=== PATIENT | male | born 1965 | race African-American/Black ===

== ENCOUNTER 2023-01-02 13:10 | Emergency (ER) | payer OTHER, MEDICARE, MEDICAID, SELFPAY ==
[2023-01-02] VITALS (11 sets, daily range): BP systolic 110; BP diastolic 84; PULSE 101–129; RESP 17–44; TEMP 36.4; O2SAT 94–99; BMI 19.0
--- NOTE | 2023-01-02 13:30 | ECG_ITS ---
[facility] Test Date: 2023-01-02 Pat Name: TONI GERBER Department: Room: - Gender: Male Flag Maker: : 1965 Requested By: [id number] Order Number: [id number] Reading MD: FRANCISCO JAVIER KRUSE Measurements Intervals [place] Rate: 122 P: 251 NE: 206 QRS: 65 QRSD: 90 T: 83 QT: 312 QTc: 384 Interpretive Statements Sinus tachycardia 9140 abnormal rhythm ECG No previous ECG available for comparison Electronically Signed On 01-03-2023 7:12:50 EDT by FRANCISCO JAVIER KRUSE
--- NOTE | 2023-01-02 13:56 | CT_ITS ---
[address] [address] Patient Name: TONI GERBER MRN: [id number] date: 1965 Sex: M Assigned Patient Location: ER Current Patient Location: ER Accession/Order Number: [id number] Exam Date: 01/02/2023 13:50 Report Date: 01/02/2023 14:34 At the request of: CARLOS BOLAÑOS Procedure: CT chest wo con EXAMINATION: CT chest wo con HISTORY: fall , posterior right rib pain COMPARISON: CT chest 08/27/2022 TECHNIQUE: Multi-planar CT images were obtained without and/or with IV contrast as indicated by examination type. Axial, Coronal, and Sagittal images. Dose reduction techniques were achieved by using automated exposure control and/or adjustment of mA and/or kV according to patient size and/or use of iterative reconstruction technique. FINDINGS: LUNGS: Moderate emphysematous changes throughout the lungs. Thick curvilinear stranding opacities within right middle lobe and posterior right lung base. PLEURA: Trace amount of right pleural fluid. No pneumothorax. VASCULATURE: No abnormality. VERONIKA: No mass or adenopathy. MEDIASTINUM: No mass or adenopathy. CARDIAC: No enlargement, pericardial thickening, or significant calcification. AORTA: No aneurysm or dissection. CHEST WALL: No mass or axillary adenopathy. BONES: Slight anterior wedging of T6 and T7 vertebral bodies; unchanged. LIMITED ABDOMEN: No suspicious findings Limited images of the upper abdomen. OTHER: Negative. CT/CT chest wo con IMPRESSION: 1. No rib fracture or appreciable acute bone abnormality. 2. Stable, slight anterior wedging of T6 and T7 vertebral bodies; developmental versus sequela of remote compression fractures. 3. Trace amount of right pleural fluid and mild stranding within lung bases favoring discoid atelectasis which are likely secondary to patient's discomfort and decreased lung expansion. No convincing infiltrates. Electronically authenticated by: JESSE RAMOS Date: 01/02/2023 14:34
--- NOTE | 2023-01-02 14:02 | ED.FALL1 ---
HPI - Fall General Chief Complaint: Extremity Injury, Upper Stated Complaint: FALL, UPPER EXTREMITY INJURY Time Seen by Provider: 01/02/23 13:21 Source: patient Mode of arrival: walk-in Limitations: no limitations History of Present Illness HPI Narrative: 57-year-old male past medical history hypertension presents for neck since a fall last night after he tripped over a rolled up rug. He states that he hit the right side of his rib cage on a bookshelf and is in pain. Hurts worse with movement. Denies fever, abd or back pain, n/v/d, SOB or CP Related Data Home Medications Medication Instructions Recorded Confirmed amlodipine 5 mg tablet 5 mg PO QDAY 01/02/23 01/02/23 aspirin 81 mg tablet,delayed 81 mg PO QDAY 01/02/23 01/02/23 release bupropion HCl 100 mg tablet 100 mg PO QDAY 01/02/23 01/02/23 folic acid 1 mg tablet 1 mg PO QDAY 01/02/23 01/02/23 hydroxyzine pamoate 25 mg capsule 25 mg PO QDAY 01/02/23 01/02/23 quetiapine 100 mg tablet 100 mg PO QDAY 01/02/23 01/02/23 Previous Rx's Medication Instructions Recorded hydrocodone 5 mg-acetaminophen 325 1 tab PO Q4H PRN pain 3 days #12 01/02/23 mg tablet tabs Allergies Allergy/AdvReac Type Severity Reaction Status Date / Time No Known Drug Allergies Allergy Verified 01/02/23 13:15 Review of Systems ROS Status of ROS 10 or more systems reviewed and unremarkable except as noted in history and below [facility] Medical History (Updated 01/02/23 @ 14:49 by ANASTASIA Parra) Social History Smoking status: Former smoker Exam Narrative Exam Narrative: General: A&Ox3, no distress, talking in full an complete sentences skin: warm, dry, intact head: normocephalic, atraumatic eyes: EOMI nose: nares patent neck: supple, trachea midline cardiac: +S1/S1. no murmur respiratory: lungs CTA, non-labored, no wheezing, no retractions chest wall: abrasion to R lateral 6th rib area, no crepitus abdomen: soft, NT extremities: FROM x 4, strength +5/5 neuro: A&Ox3 psych: appropriate mood and affect, cooperative Constitutional Vital Signs, click to edit/add: Last Vital Signs Temp 97.6 F 01/02/23 13:15 Pulse 129 H 01/02/23 13:15 Resp 18 01/02/23 13:15 BP 110/84 01/02/23 13:15 Pulse Ox 99 01/02/23 13:15 O2 Del Method Room Air 01/02/23 13:15 Course Vital Signs Vital signs: Vital Signs Temperature 97.6 F 01/02/23 13:15 Pulse Rate 129 H 01/02/23 13:15 Respiratory Rate 18 01/02/23 13:15 Blood Pressure 110/84 01/02/23 13:15 Pulse Oximetry 99 01/02/23 13:15 Oxygen Delivery Method Room Air 01/02/23 13:15 Temperature 97.6 F 01/02/23 13:15 Pulse Rate 129 H 01/02/23 13:15 Respiratory Rate 18 01/02/23 13:15 Blood Pressure 110/84 01/02/23 13:15 Pulse Oximetry 99 01/02/23 13:15 Oxygen Delivery Method Room Air 01/02/23 13:15 MDM - Fall MDM Narrative Medical decision making narrative: EKG shows a sinus tachycardia at a rate of 122. Patient medicated with morphine. Upon recheck, patient did get relief with the morphine. Pulse on the cardiac cath tech shows 103. There is a trace amount of fluid to the RLL, otherwise no acute findings on final read of chest CT without contrast. He is given a prescription of [place] and to follow-up with family doctor. He states that he has an appointment tomorrow with his family doctor. OARRS reviewed. afebrile, not tachypneic, not tachycardic, not hypoxic, non toxic appearing and ambulating at baseline and hemodynamically stable to be d/c. answered all questions. educated on SE of meds. pt in agreement with tx. educated when to return to ER. Lab Data Attestation: I reviewed the patient's lab results. Labs: Lab Results 01/02/23 Range/Units 13:40 WBC 7.5 (4.0-11.0) 10^3/uL RBC 4.50 L (4.70-6.10) 10^6/uL Hgb 14.4 (14.0-18.0) g/dL Hct 40.0 L (42.0-54.0) % MCV 88.9 (80.0-94.0) fL MCH 32.0 (25.9-34.0) pg MCHC 36.0 H (29.9-35.2) g/dL RDW 15.4 H (11.0-15.0) % Plt Count 162 (150-450) 10^3/uL MPV 9.0 L (9.5-13.5) fL Neut % (Auto) 71.6 (43.0-75.0) % Lymph % (Auto) 16.7 L (20.5-60.0) % [place] % (Auto) 8.5 (1.7-12.0) % Eos % (Auto) 2.1 (0.9-7.0) % Baso % (Auto) 0.8 (0.2-2.0) % Neut # (Auto) 5.4 (1.4-6.5) 10^3/uL Lymph # (Auto) 1.3 (1.2-3.8) 10^3/uL [place] # (Auto) 0.6 (0.3-0.8) 10^3/uL Eos # (Auto) 0.2 (0.0-0.7) 10^3/uL Baso # (Auto) 0.1 (0.0-0.1) 10^3/uL Abs Immat Gran (auto) 0.02 (0.00-0.03) 10^3/uL Imm/Tot Granulo (auto) 0.3 (0.0-0.5) % PT 10.0 (9.0-11.6) sec INR 0.94 Sodium 130 L (136-145) mmol/L Potassium 4.5 (3.5-5.1) mmol/L Chloride 97 L (98-107) mmol/L Carbon Dioxide 24.0 (21.0-32.0) mmol/L Anion Gap 13.5 BUN 7.0 (7.0-18.0) mg/dL Creatinine 0.91 (0.70-1.30) mg/dL Est GFR ( Amer) >60 (>=60) Est GFR (Non-Af Amer) >60 (>=60) BUN/Creatinine Ratio 7.7 Glucose 110 H (74-106) mg/dL Calcium 8.4 L (8.5-10.1) mg/dL Magnesium 1.9 (1.8-2.4) mg/dL Total Bilirubin 0.7 (0.2-1.0) mg/dL AST 31 (15-37) U/L ALT 29 (16-63) U/L Alkaline Phosphatase 139 H (46-116) U/L Troponin I High Sens 9.0 (4.0-76.1) pg/mL NT-Pro-B Natriuret Pep 99.0 (<=900.0) pg/mL Total Protein 7.3 (6.4-8.2) g/dL Albumin 3.5 (3.4-5.0) g/dL Globulin 3.8 g/dL Albumin/Globulin Ratio 0.9 Discharge Plan Discharge Chief Complaint: Extremity Injury, Upper Clinical Impression: Contusion of rib on right side Qualifiers: Encounter type: initial encounter Qualified Code(s): S20.211A - Contusion of right front wall of thorax, initial encounter Accidental fall Qualifiers: Encounter type: initial encounter Qualified Code(s): W19.XXXA - Unspecified fall, initial encounter Patient Disposition: Home, Self-Care Time of Disposition Decision: 14:49 Condition: Good Mode of Transportation: Private Vehicle Prescriptions / Home Meds: New hydrocodone-acetaminophen 5-325 mg tablet 1 tab PO Q4H PRN (Reason: pain) 3 Days Qty: 12 0RF No Action amlodipine 5 mg tablet 5 mg PO QDAY aspirin 81 mg tablet,delayed release (DR/EC) 81 mg PO QDAY bupropion HCl 100 mg tablet 100 mg PO QDAY folic acid 1 mg tablet 1 mg PO QDAY hydroxyzine pamoate 25 mg capsule 25 mg PO QDAY quetiapine 100 mg tablet 100 mg PO QDAY Instructions: Rib Contusion (ED) Stand Alone Forms: Portal Instructions Referrals: DANNA QURESHI [Primary Care Provider] - As soon as possible
[2023-01-02 14:04] LABS: Basophils Absolute Auto 0.1 10^3/uL (0.0-0.1); Basophils Percent Auto 0.8 % (0.2-2.0); Eosinophils Absolute Auto 0.2 10^3/uL (0.0-0.7); Eosinophils Percent Auto 2.1 % (0.9-7.0); Hemoglobin 14.4 g/dL (14.0-18.0); Immature Granulocytes Abs Auto 0.02 10^3/uL (0.00-0.03); Immature Granulocytes Pct Auto 0.3 % (0.0-0.5); Lymphocytes Absolute Auto 1.3 10^3/uL (1.2-3.8); Lymphocytes Percent Auto 16.7 % (20.5-60.0); Mean Corpuscular Volume 88.9 fL (80.0-94.0); Monocytes Absolute Auto 0.6 10^3/uL (0.3-0.8); Monocytes Percent Auto 8.5 % (1.7-12.0); Neutrophils Absolute Auto 5.4 10^3/uL (1.4-6.5); Neutrophils Percent Auto 71.6 % (43.0-75.0); Platelet Count 162 10^3/uL (150-450); Red Cell Distribution Width 15.4 % (11.0-15.0); White Blood Count 7.5 10^3/uL (4.0-11.0)
[2023-01-02 14:14] LABS: Anion Gap 13.5; INR 0.94
[2023-01-02 14:16] LABS: Alanine Aminotransferase 29 U/L (16-63); Albumin Globulin Ratio 0.9; Albumin Level 3.5 g/dL (3.4-5.0); Alkaline Phosphatase 139 U/L (46-116); Aspartate Amino Transferase 31 U/L (15-37); BUN Creatinine Ratio 7.7; Bilirubin Total 0.7 mg/dL (0.2-1.0); Calcium 8.4 mg/dL (8.5-10.1); Chloride 97 mmol/L (98-107); Estimated GFR (African America >60 (>=60); Estimated GFR (Non-African Ame >60 (>=60); Globulin 3.8 g/dL; Glucose 110 mg/dL (74-106); Magnesium 1.9 mg/dL (1.8-2.4); Potassium 4.5 mmol/L (3.5-5.1); Sodium 130 mmol/L (136-145); Total Protein 7.3 g/dL (6.4-8.2)
[2023-01-02] MEDS: MORPHINE SULFATE 4 MG/ML VIAL IV (14:19)
== END 2023-01-02 16:21 | disposition home or self-care (01) ==
PROVIDERS: Physician Assistant; Emergency Provider Student in an Organized Health Care Education/Training Program; PCP Family Medicine
DX: S20.211A Contusion of right front wall of thorax, initial encounter (principal); Z79.899 Other long term (current) drug therapy; Z79.82 Long term (current) use of aspirin; Z87.891 Personal history of nicotine dependence; W18.09XA Striking against other object with subsequent fall, initial encounter
CPT/HCPCS: 36415; 71250; 80053; 83735; 83880; 84484; 85025; 85610; 93005; 96374; 99285

== ENCOUNTER 2023-07-09 13:20 | Emergency (ER) | payer OTHER, MEDICARE, MEDICAID, SELFPAY ==
[2023-07-09 13:26] VITALS: BP 151/97; PULSE 107; RESP 16; TEMP 36.4; O2SAT 98; BMI 20.3
--- NOTE | 2023-07-09 13:49 | XR_ITS ---
The [address] [address] Patient Name: TONI GERBER MRN: [id number] date: 1965 Sex: M Assigned Patient Location: ER Current Patient Location: ER Accession/Order Number: [id number] Exam Date: 07/09/2023 14:10 Report Date: 07/09/2023 14:43 At the request of: JENNIFER MARADIAGA Procedure: XR forearm LT 2V PROCEDURE: XR forearm LT 2V COMPARISON: None. HISTORY: pain, trauma FINDINGS: BONES:No acute fracture or dislocation. Degenerative changes with marginal osteophyte formation. Enthesopathic spurring of the olecranon process at the triceps SOFT TISSUES:Mild posterior soft tissue swelling EFFUSION:None visible. OTHER: Negative. XR/XR forearm LT 2V IMPRESSION: Posterior elbow soft tissue swelling. No acute fracture Electronically authenticated by: MARCE GOULD Date: 07/09/2023 14:43
--- NOTE | 2023-07-09 13:50 | ED.UPPEXIN1 ---
HPI - Extremity Injury (Upper) General Chief Complaint: Extremity Injury, Upper Stated Complaint: L ARM PAIN Time Seen by Provider: 07/09/23 13:38 Source: patient Mode of arrival: walk-in Limitations: no limitations History of Present Illness HPI narrative: 58-year-old male presents to the emergency department with complaint of left elbow pain. States or having pain yesterday. Unsure, but thinks he may have hit the elbow on a doorway. He is currently in the process of moving. Complains of associated tenderness, swelling. Denies any other injury, motor or sensory changes, paresthesias. Patient is right-handed. Quality: Blunt trauma Severity: Moderate Timing: Since yesterday, constant Context: Normal setting and activity Modifying factors: Pain worse with palpation, movement Associated symptoms: Swelling Related Data Home Medications Medication Instructions Recorded Confirmed amlodipine 5 mg tablet 5 mg PO QDAY 01/02/23 07/09/23 aspirin 81 mg tablet,delayed 81 mg PO QDAY 01/02/23 07/09/23 release bupropion HCl 100 mg tablet 100 mg PO QDAY 01/02/23 07/09/23 folic acid 1 mg tablet 1 mg PO QDAY 01/02/23 07/09/23 hydroxyzine pamoate 25 mg capsule 25 mg PO QDAY 01/02/23 07/09/23 quetiapine 100 mg tablet 100 mg PO QDAY 01/02/23 07/09/23 Previous Rx's Medication Instructions Recorded hydrocodone 5 mg-acetaminophen 325 1 tab PO Q4H PRN pain 3 days #8 07/09/23 mg tablet tabs ibuprofen 600 mg tablet 600 mg PO QID pain, swelling #20 07/09/23 tabs Allergies Allergy/AdvReac Type Severity Reaction Status Date / Time No Known Drug Allergies Allergy Verified 01/02/23 13:15 Review of Systems ROS Narrative CONST: Denies activity change, weakness MS: +arthralgias, swelling.? Denies myalgias SKIN: Denies color change, wound NEURO: Denies numbness, paresthesias, weakness PFSH PFSH Medical History Lung cancer ?C34.90 - Malignant neoplasm of unspecified part of unspecified bronchus or lung (ICD-10) Hypertension ?I10 - Essential (primary) hypertension (ICD-10) Social History Smoking status: Light tobacco smoker Exam Narrative Exam Narrative: Vital signs noted Nurses notes reviewed CONST: Nontoxic, well appearing, well nourished, in no distress.? HENT: normocephalic, atraumatic. CV: 2+ palpable * pulse MS: left elbow: +tenderness throughout the entire elbow.? No tenderness to the remainder of the humerus, radius/ulna, shoulder, hand, wrist. +mild swelling to elbow.? No ecchymosis, discoloration, crepitus, deformity, instability, warmth.? ROM limited due to pain, but can perform flexion, extension to a degree.? Strength 5/5 NEURO: Sensory intact throughout and distal to the injury SKIN: intact, warm, dry.? No abrasion, laceration PSYCHIATRIC: normal mood, affect Constitutional Vital Signs, click to edit/add: Last Vital Signs Temp 97.6 F 07/09/23 13:26 Pulse 107 H 07/09/23 13:26 Resp 16 07/09/23 13:26 BP 151/97 H 07/09/23 13:26 Pulse Ox 98 07/09/23 13:26 O2 Del Method Room Air 07/09/23 13:26 Course Course Hospital Course: Discussed with patient results, plan, and disposition. He is agreeable with plan. Reevaluation(s) Time: 15:40 Vital Signs Vital signs: Vital Signs Temperature 97.6 F 07/09/23 13:26 Pulse Rate 107 H 07/09/23 13:26 Respiratory Rate 16 07/09/23 13:26 Blood Pressure 151/97 H 07/09/23 13:26 Pulse Oximetry 98 07/09/23 13:26 Oxygen Delivery Method Room Air 07/09/23 13:26 Temperature 97.6 F 07/09/23 13:26 Pulse Rate 107 H 07/09/23 13:26 Respiratory Rate 16 07/09/23 13:26 Blood Pressure 151/97 H 07/09/23 13:26 Pulse Oximetry 98 07/09/23 13:26 Oxygen Delivery Method Room Air 07/09/23 13:26 MDM - Extremity Injury (Upper) MDM Narrative Medical decision making narrative: This is a pleasant 58-year-old male who presents to the emergency department with complaint of left elbow pain. States onset yesterday. Thinks he may have banged it on a door frame as he is in the process of moving. Complains of associated tenderness. Pain worsens with movement. Denies any other injury, motor or sensory changes, paresthesias. Patient is right-handed. On arrival, afebrile, vital signs are stable. On exam, nontoxic, somewhat uncomfortable appearing patient, in no gross distress. Patient holding his left elbow. He complains of tenderness to the areas over the olecranon, condyles. Range of motion is somewhat limited due to pain, but able to perform to a degree. Neurovascularly intact. Patient was given dose of Motrin as he drove here He was taken to x-ray and had images completed. Per radiology report, chronic changes, no acute findings. Patient was placed in sling. Disposition ? The patient was discharged. Plan: Patient will be discharged to home. Condition at time of disposition: stable Patient sent home with limited supply of [place], OARRS evaluated. Advised of narcotic complications, concerns for addiction. He was also sent home with prescription for Motrin.? Advised to follow up with ortho. Referral information placed on patient's discharge paperwork. Advised RICE therapy. Advised to return for any worsening and/or development of new, concerning signs or symptoms PLEASE NOTE: Portions of the medical record may have been produced using electronic automotive light mechanic and may contain errors with respect to translation of words which may not have been identified prior to finalization of the chart. Imaging Data left elbow: Radiologist's impression: ITS Impressions Forearm X-Ray 07/09/23 13:49 IMPRESSION: Posterior elbow soft tissue swelling. No acute fracture Electronically authenticated by: MARCE GOULD Date: 07/09/2023 14:43 Elbow X-Ray 07/09/23 14:45 IMPRESSION: Suspected joint effusion Degenerative changes with no acute fracture Electronically authenticated by: MARCE GOULD Date: 07/09/2023 15:17 Discharge Plan Discharge Chief Complaint: Extremity Injury, Upper Clinical Impression: Elbow pain, left Contusion of elbow, left Qualifiers: Encounter type: initial encounter Qualified Code(s): S50.02XA - Contusion of left elbow, initial encounter Patient Disposition: Home, Self-Care Time of Disposition Decision: 15:33 Condition: Good Mode of Transportation: Private Vehicle Prescriptions / Home Meds: New ibuprofen 600 mg tablet 600 mg PO QID Qty: 20 0RF hydrocodone-acetaminophen 5-325 mg tablet 1 tab PO Q4H PRN (Reason: pain) 3 Days Qty: 8 0RF No Action amlodipine 5 mg tablet 5 mg PO QDAY aspirin 81 mg tablet,delayed release (DR/EC) 81 mg PO QDAY bupropion HCl 100 mg tablet 100 mg PO QDAY folic acid 1 mg tablet 1 mg PO QDAY hydroxyzine pamoate 25 mg capsule 25 mg PO QDAY quetiapine 100 mg tablet 100 mg PO QDAY Instructions: Contusion in Adults (ED) Stand Alone Forms: Portal Instructions Referrals: Rodolfo Mae MD [Physician] - 1 week Discharge Date/Time: 07/09/23 15:49 Procedures ED Procedure Instructions Procedures Procedures: ED PROCEDURE NOTE: SPLINTING/STRAPPING The ED nurse applied a sling splint/immobilizer to the left elbow of the patient. The area was examined post application and there was good alignment and good neurovascular function of the splinted/immobilized body part following the procedure. The patient tolerated the procedure well. Electronically verified by Manpreet Boogie PA-C
[2023-07-09] MEDS: IBUPROFEN 600 MG TABLET PO (14:09)
--- NOTE | 2023-07-09 14:45 | XR_ITS ---
The [address] [address] Patient Name: TONI GERBER MRN: [id number] date: 1965 Sex: M Assigned Patient Location: ER Current Patient Location: ER Accession/Order Number: [id number] Exam Date: 07/09/2023 14:52 Report Date: 07/09/2023 15:17 At the request of: JENNIFER MARADIAGA Procedure: XR elbow LT min 3V PROCEDURE: XR elbow LT min 3V COMPARISON: None. HISTORY: pain, trauma FINDINGS: BONES:No acute fracture or dislocation. Moderate degenerative changes with marginal osteophyte formation and enthesopathic spurring SOFT TISSUES:Negative. No visible soft tissue swelling. EFFUSION:Elbow joint effusion suspected with prominent anterior and posterior fat pads OTHER: Negative. XR/XR elbow LT min 3V IMPRESSION: Suspected joint effusion Degenerative changes with no acute fracture Electronically authenticated by: MARCE GOULD Date: 07/09/2023 15:17
[2023-07-09 15:47] VITALS: BP 151/93; PULSE 104; O2SAT 97
== END 2023-07-09 15:49 | disposition home or self-care (01) ==
PROVIDERS: Emergency Provider Emergency Medicine; PCP Family Medicine
DX: S50.02XA Contusion of left elbow, initial encounter (principal); X58.XXXA Exposure to other specified factors, initial encounter; Z79.82 Long term (current) use of aspirin; C34.90 Malignant neoplasm of unspecified part of unspecified bronchus or lung; I10 Essential (primary) hypertension; F17.200 Nicotine dependence, unspecified, uncomplicated; M25.522 Pain in left elbow
CPT/HCPCS: 73080; 73090; 99284

== ENCOUNTER 2023-08-21 13:55 | Outpatient (OUT) | payer OTHER, MEDICARE, MEDICAID, SELFPAY ==
[2023-08-21] MEDS: HEPARIN SODIUM (PORCINE) PF LOCK FLUSH 500 UNIT/5 ML SYRINGE IV (14:53)
[2023-08-21 16:11] LABS: Free T4 0.52 ng/dL (0.76-1.46)
[2023-08-21 16:21] LABS: Prostate Specific Antigen Dx 0.33 ng/mL (<=4.00)
[2023-08-21 16:22] LABS: Free T3 1.84 pg/mL (2.18-3.98); Thyroid Stimulating Hormone 4.816 uIU/mL (0.358-3.740)
== END 2023-08-21 13:56 | disposition home or self-care (01) ==
LOC: LAB 13:58
PROVIDERS: PCP Family Medicine; Visit Provider Family Medicine
DX: E03.8 Other specified hypothyroidism (principal); Z12.5 Encounter for screening for malignant neoplasm of prostate
CPT/HCPCS: 36415; 36591; 84153; 84439; 84443; 84481; 96372

== ENCOUNTER 2023-09-06 08:30 | Inpatient (IN) | payer OTHER, MEDICARE, MEDICAID, SELFPAY ==
[2023-09-06] VITALS (41 sets, daily range): BP systolic 127–164; BP diastolic 88–111; PULSE 80–115; TEMP 36.4–36.6; O2SAT 40–100; BMI 19.3; BMI 20.2
--- NOTE | 2023-09-06 09:03 | XR_ITS ---
The [address] [address] Patient Name: TONI GERBER MRN: [id number] date: 1965 Sex: M Assigned Patient Location: ER Current Patient Location: ED.MAIN Accession/Order Number: [id number] Exam Date: 09/06/2023 09:44 Report Date: 09/06/2023 10:11 At the request of: NASIM BAXTER Procedure: XR acute abdomen series EXAM: Acute abdomen series: HISTORY: Chest pain, abdominal pain, and vomiting. FINDINGS: The upright frontal view of the chest shows clear and well-inflated lungs. There are chronic changes in both lungs, grossly stable compared with CT dated 01/02/2023. There is a left subclavian chest port central line in place. The tip of the central line is in the mid superior vena cava. The heart and mediastinum are normal. Flat and upright views of the abdomen and pelvis show a distended gas-filled loops of small bowel in the central abdomen. The upright view shows differential air-fluid levels. There is minimal if any stool in the colon. No abnormal calcifications are seen. Osseous structures are normal. XR/XR acute abdomen series IMPRESSION: The bowel gas pattern raises the possibility of ileus versus partial obstruction, although infection/inflammation could cause the same appearance. Consider additional evaluation with CT. Electronically authenticated by: JENNIFER JOHNSON Date: 09/06/2023 10:11
--- NOTE | 2023-09-06 09:03 | ECG_ITS ---
The [facility] Test Date: 2023-09-06 Pat Name: TONI GERBER Department: Room: - Gender: Male Patient Care Associate: : 1965 Requested By: Order Number: [id number] Reading MD: FRANCISCO JAVIER KRUSE Measurements Intervals [place] Rate: 109 P: 84 [place]: 192 QRS: 63 QRSD: 92 T: 85 QT: 336 QTc: 400 Interpretive Statements 1120 Sinus tachycardia 3134 Anterior myocardial infarction, age undetermined 6120 Possible right atrial enlargement 9150 abnormal ECG Electronically Signed On 09-07-2023 6:49:43 EDT by FRANCISCO JAVIER KRUSE
[2023-09-06 09:21] LABS: Basophils Percent Auto 0.4 % (0.2-2.0); Eosinophils Percent Auto 0.2 % (0.9-7.0); Immature Granulocytes Abs Auto 0.02 10^3/uL (0.00-0.03); Immature Granulocytes Pct Auto 0.2 % (0.0-0.5); Lymphocytes Absolute Auto 1.1 10^3/uL (1.2-3.8); Lymphocytes Percent Auto 13.4 % (20.5-60.0); Mean Corpuscular HGB Conc 34.9 g/dL (29.9-35.2); Mean Corpuscular Hemoglobin 32.5 pg (25.9-34.0); Mean Corpuscular Volume 93.3 fL (80.0-94.0); Mean Platelet Volume 8.7 fL (9.5-13.5); Monocytes Percent Auto 11.9 % (1.7-12.0); Neutrophils Absolute Auto 6.3 10^3/uL (1.4-6.5); Neutrophils Percent Auto 73.9 % (43.0-75.0); Platelet Count 220 10^3/uL (150-450); Red Blood Count 4.61 10^6/uL (4.70-6.10); White Blood Count 8.5 10^3/uL (4.0-11.0)
[2023-09-06] MEDS: 0.9 % SODIUM CHLORIDE 1,000 ML 999 ML IV (09:31)
[2023-09-06] MEDS: PANTOPRAZOLE SODIUM 40 MG VIAL IV (09:31)
[2023-09-06] MEDS: HYOSCYAMINE SULFATE 0.125 MG TAB.SUBL SL (09:32)
[2023-09-06] MEDS: ONDANSETRON PF 4 MG/2 ML VIAL IV (09:32)
[2023-09-06 09:35] LABS: Alanine Aminotransferase 16 U/L (16-63); Albumin Globulin Ratio 0.9; Albumin Level 4.1 g/dL (3.4-5.0); Alkaline Phosphatase 168 U/L (46-116); Anion Gap 14.6; Aspartate Amino Transferase 18 U/L (15-37); BUN Creatinine Ratio 9.4; Bilirubin Total 1.1 mg/dL (0.2-1.0); Calcium 9.6 mg/dL (8.5-10.1); Carbon Dioxide 24.2 mmol/L (21.0-32.0); Chloride 94 mmol/L (98-107); Estimated GFR (African America >60 (>=60); Estimated GFR (Non-African Ame >60 (>=60); Globulin 4.7 g/dL; Glucose 117 mg/dL (74-106); Potassium 3.8 mmol/L (3.5-5.1); Sodium 129 mmol/L (136-145); Total Protein 8.8 g/dL (6.4-8.2)
[2023-09-06 09:42] LABS: Troponin I High Sensitivity 5.4 pg/mL (4.0-76.1)
[2023-09-06] MEDS: HYDROMORPHONE HCL 0.5 MG/0.5 ML SYRINGE IV (10:07)
--- NOTE | 2023-09-06 10:16 | ED_ITS ---
HPI HPI - General Adult General Chief complaint: Abdominal Pain Stated complaint: VOMITING, DIARRHEA Time Seen by Provider: 09/06/23 08:42 Source: patient Mode of arrival: walk-in Limitations: no limitations History of Present Illness HPI narrative: Patient suddenly experienced pain to the mid and upper abdomen yesterday along with associated nausea and vomiting. He described it as a burning sensation like I drank acid . He admits to pain across the anterior chest which is worse when he takes a deep breath or presses on the chest. No recent injury to the chest. He denies any fever, chills, cough. No back pain. No urinary symptoms. He did not take anything at home for the pain. 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 He was diagnosed in 2019 and had chemo and radiation, completed about 4 months later. He told me that he has never had any abdominal surgeries. Related Data Home Medications ?Medication ?Instructions ?Recorded ?Confirmed aspirin 81 mg tablet,delayed 81 mg PO QDAY 01/02/23 09/06/23 release folic acid 1 mg tablet 1 mg PO QDAY 01/02/23 09/06/23 quetiapine 100 mg tablet 100 mg PO QDAY 01/02/23 09/06/23 levothyroxine 50 mcg tablet 50 mcg PO DAILY 09/06/23 09/06/23 Allergies Allergy/AdvReac Type Severity Reaction Status Date / Time No Known Drug Allergies Allergy Verified 09/06/23 10:07 Opioid HPI Opioid Management Most Recent Opioid Data: Last Pain Scale 8 09/06/23 10:11 Last ED Pain Assessment 09/06/23 10:11 Last MAR Pain Assessment 09/06/23 10:07 Last ORT Total Score 11 09/06/23 14:24 Last ORT Risk Category High Risk 09/06/23 14:24 PFSH PFSH Medical History (Updated 09/06/23 @ 14:33 by German Garcia) Lung cancer ?C34.90 - Malignant neoplasm of unspecified part of unspecified bronchus or lung (ICD-10) Hypertension ?I10 - Essential (primary) hypertension (ICD-10) Surgical History (Updated 09/06/23 @ 14:27 by Jeanine Carey RN) H/O vasectomy ?Z98.52 - Vasectomy status (ICD-10) Family History (Updated 09/06/23 @ 14:28 by Jeanine Carey RN) Father Family history of cancer Family history of COPD (chronic obstructive pulmonary disease) Mother Family history of diabetes mellitus Family history of COPD (chronic obstructive pulmonary disease) Brother Family history of diabetes mellitus Sister Family history of diabetes mellitus Social History (Updated 09/06/23 @ 14:29 by Jeanine Carey RN) Within the past year, how often did you have a drink containing alcohol: 4 or more times a week Smoking status: Light tobacco smoker Non-prescribed substance use: cannabis (any form) Exam Narrative Exam Narrative: Nurses notes and vital signs reviewed and patient is not hypoxic. afebrile General: Well-appearing and in no apparent distress. Skin: Warm, dry, no pallor noted. No rash. Head: Normocephalic, atraumatic. Neck: Supple, non-tender. Eye: Pupils are equal, round and EOMI. No scleral icterus. Cardiovascular: Regular Rate and Rhythm without murmur, gallop or rub. Respiratory: No accessory muscle use or respiratory distress. Lungs are clear to auscultation, no wheezing, rales or rhonchi Chest Wall: diffuse anterior tenderness without crepitus or subcutaneous emphysema Back: No midline thoracic or lumbar vertebral tenderness. No CVA tenderness Musculoskeletal: normal ROM, no calf or popliteal tenderness, no lower extremity edema/swelling GI: Abdomen is soft, non-distended. Normal bowel sounds. No masses castro reciated. Epigastric and umbilical tenderness to palpation. No rebound, guarding, or rigidity noted. Neurological: A&O x4. No cranial nerve dysfunction observed. No truncal ataxia. Moves all extremities. Sensation intact. Psychiatric: Cooperative and interactive. Normal mood and affect. Constitutional Vital Signs, click to edit/add: Last Vital Signs Temp 97.8 F 09/06/23 08:38 Pulse 88 09/06/23 14:00 Resp 15 09/06/23 14:00 BP 127/88 09/06/23 14:00 Pulse Ox 97 09/06/23 14:00 O2 Del Method Room Air 09/06/23 08:38 Course Vital Signs Vital signs: Vital Signs Blood Pressure 164/111 H 09/06/23 08:37 Temperature 97.8 F 09/06/23 08:38 Pulse Rate 88 09/06/23 14:00 Respiratory Rate 15 09/06/23 14:00 Blood Pressure 127/88 09/06/23 14:00 Pulse Oximetry 97 09/06/23 14:00 Oxygen Delivery Method Room Air 09/06/23 08:38 Medical Decision Making MDM Narrative Medical decision making narrative: Patient was placed on alarm security or surveillance monitor and EKG obtained. Blood drawn and sent for evaluation. X-rays of the abdomen and chest were obtained. He was initially given a liter of normal saline IV fluid, IV Zofran and oral dissolvable Levsin for pain. That did not help so he was given IV Dilaudid. Xrays suggested possibility of bowel obstruction vs ileus so he was ordered o have CT abd/pelvis with both oral and IV contrast. Renal function/GFR OK for contrast. CT also shows evidence of partial versus very early complete SBO. NG tube was inserted - KUB ordered to be obtained to confirm placement. NGT will be placed to low, intermittent wall suction once XR confirms placement. Dr Myers called to discuss the case. He is in surgery so a message was left with him. I spke with Dr Myers @ 2160 and discussed the case - he agreed to be a business development consultant on the case and asked me to get a Lactate. Patient has no prior abdominal surgeries. His small cell CA was diagnosed in 2019 and he finished chemo and radiation about [address] Carlisle paged to discuss admission - she agreed to admit the patient to her service if OK with [facility] - obs,[facility]. Patient and I discussed our findings, his diagnosis and the need for admission. He is agreeable to stay at [facility]. Lab Data Lab results reviewed: Yes I reviewed the patient's lab results Labs: Lab Results 09/06/23 Range/Units 08:49 WBC 8.5 (4.0-11.0) 10^3/uL RBC 4.61 L (4.70-6.10) 10^6/uL Hgb 15.0 (14.0-18.0) g/dL Hct 43.0 (42.0-54.0) % MCV 93.3 (80.0-94.0) fL MCH 32.5 (25.9-34.0) pg MCHC 34.9 (29.9-35.2) g/dL RDW 17.0 H (11.0-15.0) % Plt Count 220 (150-450) 10^3/uL MPV 8.7 L (9.5-13.5) fL Neut % (Auto) 73.9 (43.0-75.0) % Lymph % (Auto) 13.4 L (20.5-60.0) % [place] % (Auto) 11.9 (1.7-12.0) % Eos % (Auto) 0.2 L (0.9-7.0) % Baso % (Auto) 0.4 (0.2-2.0) % Neut # (Auto) 6.3 (1.4-6.5) 10^3/uL Lymph # (Auto) 1.1 L (1.2-3.8) 10^3/uL [place] # (Auto) 1.0 H (0.3-0.8) 10^3/uL Eos # (Auto) 0.0 (0.0-0.7) 10^3/uL Baso # (Auto) 0.0 (0.0-0.1) 10^3/uL Abs Immat Gran (auto) 0.02 (0.00-0.03) 10^3/uL Imm/Tot Granulo (auto) 0.2 (0.0-0.5) % Sodium 129 L (136-145) mmol/L Potassium 3.8 (3.5-5.1) mmol/L Chloride 94 L (98-107) mmol/L Carbon Dioxide 24.2 (21.0-32.0) mmol/L Anion Gap 14.6 BUN 11.0 (7.0-18.0) mg/dL Creatinine 1.17 (0.70-1.30) mg/dL Est GFR ( Amer) >60 (>=60) Est GFR (Non-Af Amer) >60 (>=60) BUN/Creatinine Ratio 9.4 Glucose 117 H (74-106) mg/dL Calcium 9.6 (8.5-10.1) mg/dL Total Bilirubin 1.1 H (0.2-1.0) mg/dL AST 18 (15-37) U/L ALT 16 (16-63) U/L Alkaline Phosphatase 168 H (46-116) U/L Troponin I High Sens 5.4 (4.0-76.1) pg/mL NT-Pro-B Natriuret Pep 298.0 (<=900.0) pg/mL Total Protein 8.8 H (6.4-8.2) g/dL Albumin 4.1 (3.4-5.0) g/dL Globulin 4.7 g/dL Albumin/Globulin Ratio 0.9 Lipase 17.0 (16.0-77.0) U/L Imaging Data xr chest & abd: Attestation: I have reviewed the pertinent imaging results. Radiologist's impression: ITS Impressions Chest/Abdomen X-ray 09/06/23 09:03 IMPRESSION: The bowel gas pattern raises the possibility of ileus versus partial obstruction, although infection/inflammation could cause the same appearance. Consider additional evaluation with CT. Electronically authenticated by: JENNIFER JOHNSON Date: 09/06/2023 10:11 Abdomen/Pelvis CT 09/06/23 10:21 IMPRESSION: 1. Suspect partial versus early complete bowel obstruction within lower left pelvis involving mid ileum. No appreciable mass or significant flexure. Enteritis and/or ileus is not completely excluded. Electronically authenticated by: JESSE RAMOS Date: 09/06/2023 12:39 Abdomen X-Ray 09/06/23 13:13 IMPRESSION: Distal tip of the nasogastric tube is noted in the distal third of the esophagus, should be advanced about 15 cm. Electronically authenticated by: SHAHZAD HART Date: 09/06/2023 13:57 ECG Data Attestation: I personally reviewed and interpreted this ECG as follows: Interpretation: EKG interpretation: Emergency Department physician interpretation. Sinus tachycardia at 109bpm. Right atrial enlargement. no ST segment elevation or depression. Discharge Plan Discharge Chief Complaint: Abdominal Pain Clinical Impression: Partial small bowel obstruction Patient Disposition: Admitted as Observation Time of Disposition Decision: 13:00 Discharge Date/Time: 09/06/23 14:12
--- NOTE | 2023-09-06 10:21 | CT_ITS ---
[address] [address] Patient Name: TONI GERBER MRN: [id number] date: 1965 Sex: M Assigned Patient Location: ER Current Patient Location: ER Accession/Order Number: [id number] Exam Date: 09/06/2023 11:50 Report Date: 09/06/2023 12:39 At the request of: NASIM BAXTER Procedure: CT abdomen pelvis w con EXAMINATION: CT abdomen pelvis w con HISTORY: abdominal pain, ileus vs obstruction , nausea, vomiting, diarrhea COMPARISON: CT abdomen pelvis 11/01/2020 TECHNIQUE: Axial, Coronal, and Sagittal images were obtained without and/or with IV contrast as indicated by examination type. Dose reduction techniques were achieved by using automated exposure control and/or adjustment of mA and/or kV according to patient size and/or use of iterative reconstruction technique. FINDINGS: LUNG BASES: No visible pulmonary or pleural disease. LIVER: No enlargement, atrophy, suspicious density, or significant focal lesion. BILIARY: No dilatation or calcification. PANCREAS: No lesion, fluid collection, or abnormal duct dilatation. SPLEEN: No enlargement or focal lesion. ADRENALS: No mass or enlargement. KIDNEYS: No mass, obstruction, or calcification. BOWEL/MESENTERY: Fluid-filled loops of small bowel distended up to 2.4 cm, with suspected point of transition within lower left pelvis to normal caliber small bowel. Fluid and air throughout the proximal colon with relatively empty distal colon. No free air or free fluid. AORTA/VASCULAR: No aneurysm or dissection. RETROPERITONEUM: No mass or adenopathy. LYMPH NODES: No adenopathy. URINARY BLADDER: No visible focal wall thickening, lesion, or calculus. PELVIC ORGANS: No visible mass. Pelvic organs appropriate for patient age. ABDOMINAL WALL: No mass or hernia. BONES: No bony lesion or fracture. OTHER: Negative. CT/CT abdomen pelvis w con IMPRESSION: 1. Suspect partial versus early complete bowel obstruction within lower left pelvis involving mid ileum. No appreciable mass or significant flexure. Enteritis and/or ileus is not completely excluded. Electronically authenticated by: JESSE RAMOS Date: 09/06/2023 12:39
--- NOTE | 2023-09-06 13:13 | XR_ITS ---
The [address] [address] Patient Name: TONI GERBER MRN: [id number] date: 1965 Sex: M Assigned Patient Location: ER Current Patient Location: ER Accession/Order Number: [id number] Exam Date: 09/06/2023 13:30 Report Date: 09/06/2023 13:57 At the request of: NASIM BAXTER Procedure: XR abdomen 1V EXAM: XR abdomen 1V HISTORY: ng tube placement COMPARISON: 09/05/2023 TECHNIQUE: Abdominal X-ray, 1 view FINDINGS: Support devices: Distal tip of the nasogastric tube is noted in the distal third of the esophagus, should be advanced about 15 cm. Bowel: Redemonstration of gaseous distention of small bowel loops, likely representing bowel obstruction. Additional findings: None. XR/XR abdomen 1V IMPRESSION: Distal tip of the nasogastric tube is noted in the distal third of the esophagus, should be advanced about 15 cm. Electronically authenticated by: SHAHZAD HART Date: 09/06/2023 13:57
[2023-09-06 15:09] LABS: Bilirubin Direct 0.3 mg/dL (0.0-0.2)
--- NOTE | 2023-09-06 16:13 | P.HP_ITS ---
<Statement entered by Nilsa Carlisle, DO - 09/07/23 09:50> This documentation has been reviewed and approved.I have also seen and assessed patient and agree to the above findings and plan of care. consult General surgery, Dr. Myers HPI H&P: HPI History of Present Illness Chief complaint: VOMITING, DIARRHEA Narrative: 09/06/23 5230 This is a 58-year-old male patient with a past medical history as outlined below including hypothyroidism, insomnia, and history of lung cancer s/p chemo and radiation in 2019; who presented to the ED complaining of abdominal pain with nausea vomiting and diarrhea. The patient reports onset of mild dyspepsia about 2 days ago. Yesterday afternoon around 4 PM he developed severe left upper quadrant abdominal pain accompanied by nausea and vomiting and acid reflux. His pain then began to radiate toward the right upper quadrant and he had diarrhea that was green and watery. He denies any previous abdominal surgeries or any previous history of small bowel obstructions. He presented to the ED for further evaluation. Workup in the ED was relatively benign for labs. He did have hyponatremia (129) and elevated total bili (1.1), and alk phos (168). Troponin, NT proBNP, and lipase were all unremarkable. An abdominal x-ray indicated ileus versus possible small bowel obstruction. A follow-up CT of the abdomen was obtained and this revealed partial versus early complete bowel obstruction within the lower left pelvis involving the mid ileum. An NG tube was placed to LIS in the ED. Dr. Myers, general surgeon was contacted to ensure he was comfortable managing this patient's small bowel obstruction to which she agreed. The patient is being admitted to the hospitalist service as an inpatient for a small bowel obstruction. At the time of my exam the patient is resting in bed on the [facility] floor. He complains of sore throat and continues to have some dyspepsia as his NG tube is not been reconnected to LIS since arrival on the floor a few minutes ago. He does report improvement in his symptoms with gastric decompression in the ED. He also reports feeling like he was peeing glass over the last couple of days. He denies any fevers or chills. He is requesting something to help manage his sore throat discomfort. Opioid HPI Opioid Management Most Recent Opioid Data: Last Pain Scale 7 09/06/23 16:00 Last Pain Assessment 09/06/23 16:00 Last ED Pain Assessment 09/06/23 10:11 Last MAR Pain Assessment 09/06/23 10:07 Last ORT Total Score 11 09/06/23 14:24 Last ORT Risk Category High Risk 09/06/23 14:24 Review of Systems ROS Status of ROS 10 or more systems reviewed and unremark able except as noted in history and below [facility] Medical History (Updated 09/06/23 @ 16:45 by Madhuri Davis NP) Insomnia ?G47.00 - Insomnia, unspecified (ICD-10) Hypothyroidism ?E03.9 - Hypothyroidism, unspecified (ICD-10) Lung cancer ?C34.90 - Malignant neoplasm of unspecified part of unspecified bronchus or lung (ICD-10) Hypertension ?I10 - Essential (primary) hypertension (ICD-10) Surgical History (Updated 09/06/23 @ 14:27 by Jeanine Carey RN) H/O vasectomy ?Z98.52 - Vasectomy status (ICD-10) Family History (Updated 09/06/23 @ 14:28 by Jeanine Carey, ARTHUR) Father Family history of cancer Family history of COPD (chronic obstructive pulmonary disease) Mother Family history of diabetes mellitus Family history of COPD (chronic obstructive pulmonary disease) Brother Family history of diabetes mellitus Sister Family history of diabetes mellitus Social History (Updated 09/06/23 @ 14:29 by Jeanine Carey, ARTHUR) Within the past year, how often did you have a drink containing alcohol: 4 or more times a week Smoking status: Light tobacco smoker Non-prescribed substance use: cannabis (any form) Highest level of school completed/degree received: some college, no degree Meds Home Medications and Allergies Home Medications ?Medication ?Instructions ?Recorded ?Confirmed ?Type aspirin 81 mg tablet,delayed 81 mg PO QDAY 01/02/23 09/06/23 History release folic acid 1 mg tablet 1 mg PO QDAY 01/02/23 09/06/23 History quetiapine 100 mg tablet 100 mg PO .COMPLEX 01/02/23 09/06/23 History levothyroxine 50 mcg tablet 50 mcg PO DAILY 09/06/23 09/06/23 History Allergies Allergy/AdvReac Type Severity Reaction Status Date / Time No Known Drug Allergies Allergy Verified 09/06/23 10:07 Exam Constitutional Vital Signs, click to edit/add: Last Vital Signs Temp 97.5 F L 09/06/23 14:24 Pulse 97 H 09/06/23 14:24 Resp 18 09/06/23 14:24 BP 153/100 H 09/06/23 14:24 Pulse Ox 100 09/06/23 14:24 O2 Del Method Room Air 09/06/23 14:24 Common normals: no apparent distress, oriented x3, alert and well nourished General appearance: cooperative Orientation/consciousness: Yes awake HENMT Common normals: normocephalic, head/scalp atraumatic, hearing grossly normal bilaterally, external nose normal and moist oral mucous membranes Eye Common normals: PERRL, EOMs intact bilaterally, conjunctivae normal and no scleral icterus Neck & C-Spine Common normals: full ROM, supple and no JVD Chest Common normals: inspection of chest normal Chest: symmetrical chest wall rise Respiratory Common normals: normal respiratory effort, no retractions, no use of accessory muscles and clear to auscultation bilaterally Effort & inspection: able to speak in complete sentences Auscultation: diminished lung sounds (Mild, BLL) Cardio Common normals: no JVD, regular rate, regular rhythm, S1 normal heart sound, S2 normal heart sound, no gallops, no clicks, no murmurs, no rub and peripheral pulses 2+ throughout GI Common normals: Normal to inspection, nondistended, normoactive bowel sounds present, soft to palpation, no hepatosplenomegaly, no masses and no bruits Palpation: tender and guarding (Mild, BUQ); not rigid and no rebound tenderness present Rectal Exam - Male: deferred Bladder/kidney exam: bladder normal to palpation Back & Pelvis Common normals: thoracic and lumbar spine normal to inspection Extremity Common normals: normal capillary refill and no pedal edema General: normal exam except as noted; no clubbing and no cyanosis Neuro [place] Coma Scale: GCS not evaluated Common normals: CN's II-XII intact bilaterally, moves all extremities, no focal motor deficits and no sensory deficits noted Speech: speech normal Motor exam: strength 5/5 throughout Psych Common normals: mental status grossly normal, thought process normal, affect normal and activity/motor behavior normal Results Labs Labs: Short CBC 09/06/23 Range/Units 08:49 WBC 8.5 (4.0-11.0) 10^3/uL Hgb 15.0 (14.0-18.0) g/dL Hct 43.0 (42.0-54.0) % Plt Count 220 (150-450) 10^3/uL BMP 09/06/23 08:49 Sodium 129 L Potassium 3.8 Chloride 94 L Carbon Dioxide 24.2 BUN 11.0 Creatinine 1.17 Glucose 117 H Calcium 9.6 Liver Function 09/06/23 Range/Units 08:49 Total Bilirubin 1.1 H (0.2-1.0) mg/dL Direct Bilirubin 0.3 H (0.0-0.2) mg/dL AST 18 (15-37) U/L ALT 16 (16-63) U/L Alkaline Phosphatase 168 H (46-116) U/L Albumin 4.1 (3.4-5.0) g/dL Pulse Oximetry Attestation: I have reviewed the pertinent pulse oximetry results. Imaging CT scan - abdomen: Attestation: I have reviewed the pertinent imaging results. Radiologist's impression: IMPRESSION: 1. Suspect partial versus early complete bowel obstruction within lower left pelvis involving mid ileum. No appreciable mass or significant flexure. Enteritis and/or ileus is not completely excluded. Abdominal x-ray: Radiologist's impression: IMPRESSION: The bowel gas pattern raises the possibility of ileus versus partial obstruction, although infection/inflammation could cause the same appearance. Consider additional evaluation with CT. Study #2 post NG placement IMPRESSION: Distal tip of the nasogastric tube is noted in the distal third of the esophagus, should be advanced about 15 cm. Assessment and Plan Assessment and Plan (1) Partial small bowel obstruction: Assessment and Plan: Acute * Adm inpatient * We expect greater than a 2 midnight stay for medically necessary hospital treatment, in a pt who is NPO with an NGT to LIS * Suspect early complete SBO on imaging * Consult Dr Myers, General surgeon - we appreciate his assistance with this pt's care * NGT to LIS * NPO pending evaluation by Dr Myers * CBC, CMP daily (2) Hyponatremia: Assessment and Plan: Acute * Suspect 2/2 hypovolemia/frequent vomiting * NS IVF at 125/hr * CMP daily (3) Hypothyroidism: Assessment and Plan: Chronic * Continue home levothyroxine as an IV preparation (25 mcg daily) while NPO (4) Insomnia: Assessment and Plan: Chronic * Hold home quetiapine while NPO * PRN Lorazepam IVP
--- NOTE | 2023-09-06 16:43 | P.GSCN_ITS ---
History of Present Illness Consult details Consult date: 09/06/23 Requesting physician: German Garcia Narrative: Mr. Kirill Echols is a 58M with history of small cell lung cancer diagnosed 2020 s/p radiation who presented to ED with several hours of abdominal pain, nausea, and vomiting. CT revealed dilated bowel loops with air fluid levels consistent with partial small bowel obstruction, and surgery was consulted. Pt states last night, he had profuse green liquid diarrhea, intractable vomiting and dry heaving, migraine, and profuse rhinorrhea. He also describes left sided chest pain and pressure that spread from breast to breast , heartburn, and right-sided abdominal pain. Describes legs giving out from under him last night and needing his cane for balance. Endorses blood in urine and stool. Endorses abdominal pressure like he needs to burp but can't. Today, he feels tired. States he had a similar episode 3 years ago that resolved with NG placement. Denies any surgical history other than 1992 vasectomy and left-sided chest port placement for cancer treatment. Last colonoscopy approximately 6 years ago. Former daily smoker for 35 years; quit 2019. Endorses occasional cigar use. Drinks a couple beers every other day. Retired No know med allergies--describes adverse reaction to an unknown med that sounds like angioedema of [facility] History (Updated 09/06/23 @ 17:08 by Manpreet Myers MD) Insomnia ?G47.00 - Insomnia, unspecified (ICD-10) Hypothyroidism ?E03.9 - Hypothyroidism, unspecified (ICD-10) Lung cancer ?C34.90 - Malignant neoplasm of unspecified part of unspecified bronchus or lung (ICD-10) Hypertension ?I10 - Essential (primary) hypertension (ICD-10) Surgical History (Updated 09/06/23 @ 14:27 by Jeanine Carey RN) H/O vasectomy ?Z98.52 - Vasectomy status (ICD-10) Family History (Updated 09/06/23 @ 14:28 by Jeanine Carey RN) Father Family history of cancer Family history of COPD (chronic obstructive pulmonary disease) Mother Family history of diabetes mellitus Family history of COPD (chronic obstructive pulmonary disease) Brother Family history of diabetes mellitus Sister Family history of diabetes mellitus Social History (Updated 09/06/23 @ 14:29 by Jeanine Carey RN) Within the past year, how often did you have a drink containing alcohol: 4 or more times a week Smoking status: Light tobacco smoker Non-prescribed substance use: cannabis (any form) Highest level of school completed/degree received: some college, no degree Meds Home Medications and Allergies Home Medications ?Medication ?Instructions ?Recorded ?Confirmed ?Type aspirin 81 mg tablet,delayed 81 mg PO QDAY 01/02/23 09/06/23 History release folic acid 1 mg tablet 1 mg PO QDAY 01/02/23 09/06/23 History quetiapine 100 mg tablet 100 mg PO .COMPLEX 01/02/23 09/06/23 History levothyroxine 50 mcg tablet 50 mcg PO DAILY 09/06/23 09/06/23 History Allergies Allergy/AdvReac Type Severity Reaction Status Date / Time No Known Drug Allergies Allergy Verified 09/06/23 10:07 Exam Narrative Exam Narrative: General: No acute distress. Well-developed, small frequent burps HEENT: NC/AT, EOMI, no conjunctival injection. NG in place Chest: supernumerary nipple on left side. Port on left chest. Reproducible tenderness to anteroinferior ribcage CV: regular rate and rhythm Abd: soft, somewhat tympanic, tender to palpation Neuro: no focal deficits Psych: normal speech, euthymic mood and affect, cooperative Constitutional Vital Signs, click to edit/add: Last Vital Signs Temp 97.5 F L 09/06/23 14:24 Pulse 97 H 09/06/23 14:24 Resp 18 09/06/23 14:24 BP 153/100 H 09/06/23 14:24 Pulse Ox 100 09/06/23 14:24 O2 Del Method Room Air 09/06/23 14:24 Results Labs Labs: Abnormal lab results 09/06/23 Range/Units 08:49 RBC 4.61 L (4.70-6.10) 10^6/uL RDW 17.0 H (11.0-15.0) % MPV 8.7 L (9.5-13.5) fL Lymph % (Auto) 13.4 L (20.5-60.0) % Eos % (Auto) 0.2 L (0.9-7.0) % Lymph # (Auto) 1.1 L (1.2-3.8) 10^3/uL [place] # (Auto) 1.0 H (0.3-0.8) 10^3/uL Sodium 129 L (136-145) mmol/L Chloride 94 L (98-107) mmol/L Glucose 117 H (74-106) mg/dL Total Bilirubin 1.1 H (0.2-1.0) mg/dL Direct Bilirubin 0.3 H (0.0-0.2) mg/dL Alkaline Phosphatase 168 H (46-116) U/L Total Protein 8.8 H (6.4-8.2) g/dL Diabetes panel 09/06/23 Range/Units 08:49 Sodium 129 L (136-145) mmol/L Potassium 3.8 (3.5-5.1) mmol/L Chloride 94 L (98-107) mmol/L Carbon Dioxide 24.2 (21.0-32.0) mmol/L BUN 11.0 (7.0-18.0) mg/dL Creatinine 1.17 (0.70-1.30) mg/dL Glucose 117 H (74-106) mg/dL Calcium 9.6 (8.5-10.1) mg/dL AST 18 (15-37) U/L ALT 16 (16-63) U/L Alkaline Phosphatase 168 H (46-116) U/L Total Protein 8.8 H (6.4-8.2) g/dL Albumin 4.1 (3.4-5.0) g/dL Calcium panel 09/06/23 Range/Units 08:49 Calcium 9.6 (8.5-10.1) mg/dL Albumin 4.1 (3.4-5.0) g/dL Pituitary panel 09/06/23 Range/Units 08:49 Sodium 129 L (136-145) mmol/L Potassium 3.8 (3.5-5.1) mmol/L Chloride 94 L (98-107) mmol/L Carbon Dioxide 24.2 (21.0-32.0) mmol/L BUN 11.0 (7.0-18.0) mg/dL Creatinine 1.17 (0.70-1.30) mg/dL Glucose 117 H (74-106) mg/dL Calcium 9.6 (8.5-10.1) mg/dL Adrenal panel 09/06/23 Range/Units 08:49 Sodium 129 L (136-145) mmol/L Potassium 3.8 (3.5-5.1) mmol/L Chloride 94 L (98-107) mmol/L Carbon Dioxide 24.2 (21.0-32.0) mmol/L BUN 11.0 (7.0-18.0) mg/dL Creatinine 1.17 (0.70-1.30) mg/dL Glucose 117 H (74-106) mg/dL Calcium 9.6 (8.5-10.1) mg/dL Total Bilirubin 1.1 H (0.2-1.0) mg/dL AST 18 (15-37) U/L ALT 16 (16-63) U/L Alkaline Phosphatase 168 H (46-116) U/L Total Protein 8.8 H (6.4-8.2) g/dL Albumin 4.1 (3.4-5.0) g/dL All other labs normal. Assessment and Plan Assessment and Plan (1) Partial small bowel obstruction: (2) Hypothyroidism: (3) Insomnia: (4) Costochondritis: Plan Suspected partial SBO vs. gastritis vs. ileus. 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 Clinical presentation is reassuring against bowel ischemia. Will proceed with conservative management with NG decompression. Plan -Lactate pending -Monitor NG output -Remain NPO -Toradol for pain; kidney function WNL -Consider fecal occult blood testing and urinalysis -XR of abdomen in AM -Heating pad for rib pain
[2023-09-06] MEDS: LACTATED RINGER'S SOLUTION 1,000 ML 125 ML IV (16:48)
[2023-09-06] MEDS: MORPHINE SULFATE 2 MG/ML SYRINGE IV ×2 (16:48→20:22)
[2023-09-06 17:55] LABS: Bilirubin Urine NEGATIVE (NEGATIVE); Blood Urine NEGATIVE (NEGATIVE); Clarity Urine CLEAR (CLEAR); Color Urine YELLOW (YELLOW); Glucose Urine UA NEGATIVE (NEGATIVE); Ketones Urine TRACE mg/dL (NEGATIVE); Leukocyte Esterase Urine NEGATIVE (NEGATIVE); Nitrite Urine NEGATIVE (NEGATIVE); Protein Urine NEGATIVE (NEG/TRACE); Urobilinogen Urine 0.2 EU/dL (0.2-1.0); pH Urine 6.5 (5.0-9.0)
[2023-09-06 17:58] LABS: Urine Microscopic Indicated NO
[2023-09-06 18:12] LABS: Lactate/Lactic Acid 0.7 mmol/L (0.4-2.0)
[2023-09-06] MEDS: 0.9 % SODIUM CHLORIDE 1,000 ML 125 ML IV (19:25)
[2023-09-06] MEDS: phenoL 88 SPRAY/177 ML BOTTLE MM (20:22)
--- NOTE | 2023-09-06 22:39 | PC.NURSE ---
Patient passed a large amount of gas and felt slight relief
[2023-09-07] MEDS: MORPHINE SULFATE 2 MG/ML SYRINGE IV ×4 (00:54→17:18)
[2023-09-07] MEDS: ONDANSETRON PF 4 MG/2 ML VIAL IV (00:55)
[2023-09-07] MEDS: 0.9 % SODIUM CHLORIDE 1,000 ML 125 ML IV ×3 (03:39→20:34)
[2023-09-07 04:11] VITALS: BP 139/87; PULSE 64; TEMP 36.7; O2SAT 96
[2023-09-07 04:52] LABS: Basophils Percent Auto 0.5 % (0.2-2.0); Eosinophils Absolute Auto 0.1 10^3/uL (0.0-0.7); Eosinophils Percent Auto 2.1 % (0.9-7.0); Hematocrit 33.3 % (42.0-54.0); Hemoglobin 11.6 g/dL (14.0-18.0); Immature Granulocytes Abs Auto 0.01 10^3/uL (0.00-0.03); Immature Granulocytes Pct Auto 0.2 % (0.0-0.5); Lymphocytes Absolute Auto 1.1 10^3/uL (1.2-3.8); Lymphocytes Percent Auto 18.5 % (20.5-60.0); Mean Corpuscular HGB Conc 34.8 g/dL (29.9-35.2); Mean Corpuscular Hemoglobin 32.8 pg (25.9-34.0); Mean Corpuscular Volume 94.1 fL (80.0-94.0); Mean Platelet Volume 9.5 fL (9.5-13.5); Monocytes Absolute Auto 0.8 10^3/uL (0.3-0.8); Monocytes Percent Auto 13.3 % (1.7-12.0); Neutrophils Absolute Auto 3.8 10^3/uL (1.4-6.5); Neutrophils Percent Auto 65.4 % (43.0-75.0); Platelet Count 167 10^3/uL (150-450); Red Blood Count 3.54 10^6/uL (4.70-6.10); Red Cell Distribution Width 16.7 % (11.0-15.0); White Blood Count 5.8 10^3/uL (4.0-11.0)
[2023-09-07 05:22] LABS: Alanine Aminotransferase 13 U/L (16-63); Albumin Globulin Ratio 0.8; Albumin Level 2.8 g/dL (3.4-5.0); Alkaline Phosphatase 120 U/L (46-116); Anion Gap 11.6; Aspartate Amino Transferase 13 U/L (15-37); BUN Creatinine Ratio 8.6; Bilirubin Total 0.9 mg/dL (0.2-1.0); Calcium 7.9 mg/dL (8.5-10.1); Carbon Dioxide 23.6 mmol/L (21.0-32.0); Chloride 101 mmol/L (98-107); Estimated GFR (African America >60 (>=60); Estimated GFR (Non-African Ame >60 (>=60); Globulin 3.5 g/dL; Glucose 73 mg/dL (74-106); Potassium 4.2 mmol/L (3.5-5.1); Sodium 132 mmol/L (136-145); Total Protein 6.3 g/dL (6.4-8.2)
[2023-09-07 07:58] VITALS: O2SAT 95
--- NOTE | 2023-09-07 08:00 | XR_ITS ---
The [address] [address] Patient Name: TONI GERBER MRN: [id number] date: 1965 Sex: M Assigned Patient Location: [place] Current Patient Location: Accession/Order Number: [id number] Exam Date: 09/07/2023 08:05 Report Date: 09/07/2023 15:47 At the request of: JENNIFER HORNER Procedure: XR abdomen 1V EXAM: XR abdomen 1V 09/07/2023 COMPARISON STUDY: Supine abdomen 09/06/2023. FINDINGS: A single upright image was obtained. HISTORY: SBO vs ileus upright. XR/XR abdomen 1V IMPRESSION: 1. NG tube extends below the diaphragm with the tip in the distribution of the proximal gastric lumen. 2. There are overlapping gas-filled dilated large and small bowel segments about the abdomen and pelvis. There is radiopaque contrast material identified within colonic segments within the lower abdomen and pelvis. The small bowel dilatation is not dramatically improved. This may represent either ileus versus partial small bowel obstruction. Please see report of CT study from 09/06/2023 for further detail. 3. Osseous structures are stable. Electronically authenticated by: CAN GARNER Date: 09/07/2023 15:47
--- NOTE | 2023-09-07 08:27 | PM.GSPN ---
Progress Note: A&P Assessment and Plan (1) Partial small bowel obstruction: (2) Costochondritis: (3) Hyponatremia: Plan Suspected partial SBO vs. gastritis vs. ileus. 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 Clinical presentation is reassuring against bowel ischemia. XR this AM shows NG tube needs to be advanced another 5-6 cm, contrast in colon reassuring against complete obstruction. Continue conservative management. Plan -Lactate 0.7 -Monitor NG output -Remain NPO -Toradol for pain; kidney function WNL -Repeat XR in AM -Heating pad for rib pain Subjective Subjective Interval history: Pt is seated in bedside chair this AM stating he had a difficult night. Endorses pain throughout chest again and abdomen again and rhinorrhea with no NG output. Endorses dry heaving overnight. NG suction is increased from intermittent to regular, and pt immediately has clear mucous output. He states clear, profuse rhinorrhea has been going on for months . No hx of allergies. Endorses occasional mild headache. Exam Narrative Exam Narrative: General: Appears uncomfortable. Well-developed, well-nourished HEENT: NG in place. Steady, clear rhinorrhea Chest: supernumerary nipple on left side. Port on left chest. Reproducible tenderness to sternum and circumferential inferior ribcage Abd: soft, tender to light palpation, normoactive bowel sounds Neuro: no focal deficits Psych: normal speech, euthymic mood and affect, cooperative Constitutional Vital Signs, click to edit/add: Last Vital Signs Temp 98.1 F 09/07/23 04:11 Pulse 64 09/07/23 04:11 Resp 18 09/07/23 04:11 BP 139/87 09/07/23 04:11 Pulse Ox 95 09/07/23 07:58 O2 Del Method Room Air 09/07/23 04:11
[2023-09-07] MEDS: SODIUM CHLORIDE IV (08:34)
[2023-09-07] MEDS: LEVOTHYROXINE SODIUM IV (08:34)
[2023-09-07] MEDS: ENOXAPARIN SODIUM 40 MG/0.4 ML SYRINGE SUBQ (08:34)
[2023-09-07 09:54] VITALS: O2SAT 94
--- NOTE | 2023-09-07 10:53 | P.PN_ITS ---
<Statement entered by Nilsa Carlisle, - 09/07/23 15:26> This documentation has been reviewed and approved.I have also seen and evaluated patient agree with the above assessments and plan of care. Progress Note: Subjective Subjective Interval history: 09/07/23 0912 The patient is resting comfortably in bed. He reports significantly improved abdominal discomfort overnight, but did complain of intermittent dry heaves . He also c/o significant fatigue. He continues to experience rhinorrhea which has been chronic for about a year, but mildly exacerbated with the NG tube. Nursing reports no NGT output overnight. He was seen this morning by Dr Power PA and the NGT was changed to continuous suction. A KUB was obtained this morning but radiology interpretation is still pending. We defer NGT management to the surgical service. Exam Constitutional Vital Signs, click to edit/add: Last Vital Signs Temp 98.1 F 09/07/23 04:11 Pulse 64 09/07/23 04:11 Resp 18 09/07/23 08:00 BP 139/87 09/07/23 04:11 Pulse Ox 94 L 09/07/23 09:54 O2 Del Method Room Air 09/07/23 04:11 Common normals: no apparent distress, oriented x3 and alert General appearance: cooperative Orientation/consciousness: Yes awake HENMT Common normals: normocephalic, head/scalp atraumatic and hearing grossly normal bilaterally Eye Common normals: PERRL, EOMs intact bilaterally, conjunctivae normal and no scleral icterus General eye: normal appearance of both eyes Chest Common normals: inspection of chest normal Chest: symmetrical chest wall rise Respiratory Common normals: normal respiratory effort, no use of accessory muscles and clear to auscultation bilaterally Effort & inspection: able to speak in complete sentences Cardio Common normals: regular rate, regular rhythm, S1 normal heart sound, S2 normal heart sound, no murmurs and peripheral pulses 2+ throughout GI Common normals: Normal to inspection, nondistended, normoactive bowel sounds present, soft to palpation and no hepatosplenomegaly Palpation: tender (BUQ, greatest at LUQ) and guarding (Mild LUQ guarding); not rigid and no rebound tenderness present Bladder/kidney exam: bladder normal to palpation Extremity Common normals: normal to inspection and no calf tenderness General: no clubbing, no cyanosis and no edema Neuro Common normals: CN's II-XII intact bilaterally, moves all extremities, no focal motor deficits and no sensory deficits noted Psych Common normals: mental status grossly normal Progress Note: Objective Labs Labs: Short CBC 09/07/23 Range/Units 04:00 WBC 5.8 (4.0-11.0) 10^3/uL Hgb 11.6 L (14.0-18.0) g/dL Hct 33.3 L (42.0-54.0) % Plt Count 167 (150-450) 10^3/uL BMP 09/07/23 04:00 Sodium 132 L Potassium 4.2 Chloride 101 Carbon Dioxide 23.6 BUN 7.0 Creatinine 0.81 Glucose 73 L Calcium 7.9 L Liver Function 09/06/23 09/07/23 Range/Units 08:49 04:00 Total Bilirubin 0.9 (0.2-1.0) mg/dL Direct Bilirubin 0.3 H (0.0-0.2) mg/dL AST 13 L (15-37) U/L ALT 13 L (16-63) U/L Alkaline Phosphatase 120 H (46-116) U/L Albumin 2.8 L (3.4-5.0) g/dL Urine 09/06/23 Range/Units 17:00 Urine Color Yellow (YELLOW) Urine Clarity Clear (CLEAR) Urine pH 6.5 (5.0-9.0) Ur Specific [place] 1.010 (1.005-1.025) Urine Protein Negative (NEG/TRACE) mg/dL Urine Glucose (UA) Negative (NEGATIVE) mg/dL Progress Note: A&P Assessment and Plan (1) Partial small bowel obstruction: Assessment and Plan: Acute * Improving * Suspect partial vs early complete SBO on CT imaging * Consult Dr Myers, General surgeon - we appreciate his assistance with this pt's care * Defer NGT management and diet advancement to the surgical service * Repeat KUB done today - pending radiology interpretation * CBC, CMP daily (2) Hyponatremia: Assessment and Plan: Acute * Resolving * Suspect 2/2 hypovolemia/frequent vomiting * Continue NS IVF at 125/hr while NPO * CMP daily (3) Hypothyroidism: Assessment and Plan: Chronic * Continue home levothyroxine as an IV preparation (25 mcg daily) while NPO * Resume home PO levothyroxine when diet is resumed * Check TSH in AM for therapeutic monitoring d/t c/o of fatigue (4) Insomnia: Assessment and Plan: Chronic * Hold home quetiapine while NPO * PRN Lorazepam IVP
[2023-09-07 11:54] VITALS: O2SAT 94
[2023-09-07 12:00] VITALS: BP 129/88; PULSE 105; TEMP 36.4; O2SAT 94
--- NOTE | 2023-09-07 12:16 | CM.NOTE ---
Rounds made with Dr. Carlisle, awaiting morning abdominal x-ray for plan of care. Dr. Myers will also evaluate pt today for further recommendations.
[2023-09-07 13:17] LABS: TSH W/ REFLEX FT4 11.597 uIU/mL (0.358-3.740)
[2023-09-07 13:57] LABS: Free T4 0.88 ng/dL (0.76-1.46)
[2023-09-07 17:21] LABS: Occult Blood Positive
[2023-09-07 19:57] VITALS: BP 148/93; PULSE 87; TEMP 36.7; O2SAT 93
[2023-09-07] MEDS: IBUPROFEN 600 MG TABLET PO (20:30)
[2023-09-07] MEDS: BENZOCAINE 20% SPRAY 57 GM SPRAY CAN TOPICAL (20:31)
[2023-09-07] MEDS: LIDOCAINE VISCOUS 2% 15 ML SOLUTION TOPICAL (20:31)
[2023-09-08] MEDS: 0.9 % SODIUM CHLORIDE 1,000 ML 125 ML IV (03:23)
[2023-09-08 03:25] VITALS: BP 142/87; PULSE 85; TEMP 37.1; O2SAT 93
[2023-09-08 04:55] LABS: Basophils Absolute Auto 0.1 10^3/uL (0.0-0.1); Basophils Percent Auto 1.1 % (0.2-2.0); Eosinophils Absolute Auto 0.2 10^3/uL (0.0-0.7); Eosinophils Percent Auto 3.8 % (0.9-7.0); Hemoglobin 10.3 g/dL (14.0-18.0); Immature Granulocytes Abs Auto 0.01 10^3/uL (0.00-0.03); Immature Granulocytes Pct Auto 0.2 % (0.0-0.5); Lymphocytes Absolute Auto 0.8 10^3/uL (1.2-3.8); Lymphocytes Percent Auto 14.7 % (20.5-60.0); Mean Corpuscular HGB Conc 34.3 g/dL (29.9-35.2); Mean Corpuscular Hemoglobin 32.7 pg (25.9-34.0); Mean Corpuscular Volume 95.2 fL (80.0-94.0); Mean Platelet Volume 9.1 fL (9.5-13.5); Monocytes Absolute Auto 0.8 10^3/uL (0.3-0.8); Monocytes Percent Auto 14.2 % (1.7-12.0); Neutrophils Absolute Auto 3.6 10^3/uL (1.4-6.5); Platelet Count 141 10^3/uL (150-450); Red Blood Count 3.15 10^6/uL (4.70-6.10); Red Cell Distribution Width 17.2 % (11.0-15.0); White Blood Count 5.5 10^3/uL (4.0-11.0)
[2023-09-08 05:21] LABS: Alanine Aminotransferase 11 U/L (16-63); Albumin Globulin Ratio 0.8; Albumin Level 2.6 g/dL (3.4-5.0); Alkaline Phosphatase 101 U/L (46-116); Anion Gap 13.9; Aspartate Amino Transferase 11 U/L (15-37); BUN Creatinine Ratio 7.1; Bilirubin Total 0.8 mg/dL (0.2-1.0); Calcium 8.2 mg/dL (8.5-10.1); Chloride 103 mmol/L (98-107); Estimated GFR (African America >60 (>=60); Estimated GFR (Non-African Ame >60 (>=60); Globulin 3.1 g/dL; Glucose 71 mg/dL (74-106); Potassium 3.9 mmol/L (3.5-5.1); Sodium 135 mmol/L (136-145); Total Protein 5.7 g/dL (6.4-8.2)
--- NOTE | 2023-09-08 06:00 | XR_ITS ---
The [address] [address] Patient Name: TONI GERBER MRN: [id number] date: 1965 Sex: M Assigned Patient Location: MS Current Patient Location: [place] Accession/Order Number: [id number] Exam Date: 09/08/2023 06:02 Report Date: 09/08/2023 08:04 At the request of: JENNIFER HORNER Procedure: XR abdomen 1V EXAM: XR abdomen 1V HISTORY: SBO COMPARISON: Abdomen dated 09/07/2023. TECHNIQUE: AP supine view abdomen performed. FINDINGS: Gas within the colon with a moderate amount of stool within the ascending colon and gas within numerous loops of small bowel, some of which are mildly distended. In the right clinical setting, findings suggest an ileus. There is no free air. Stable mild blunting of the right lateral costophrenic angle suggesting pleural thickening or a small amount of pleural fluid. There is a Pham's lobe configuration of the liver, a variant of normal. There are no abnormal pathologic calcifications. The bony structures are osteopenic. There is no acute osseous abnormality. XR/XR abdomen 1V IMPRESSION: The bowel gas pattern which in the right clinical setting suggest an ileus. Stable mild blunting of the right lateral costophrenic angle suggesting pleural thickening or a small amount of pleural fluid. Electronically authenticated by: ENZO BRUCE Date: 09/08/2023 08:04
[2023-09-08] MEDS: IBUPROFEN 600 MG TABLET PO (07:28)
[2023-09-08] MEDS: LEVOTHYROXINE SODIUM IV (09:24)
[2023-09-08] MEDS: SODIUM CHLORIDE IV (09:24)
--- NOTE | 2023-09-08 10:02 | P.DS_ITS ---
DS: Providers Provider Date of admission: 09/06/23 15:05 Primary care physician: DANNA QURESHI Consults: 09/06/23 Consult to Dietitian Routine Reason for consultation: Weight loss 09/06/23 14:00 Consult to General Surgeon Routine Consulting Provider: Manpreet Myers Reason for consultation: partial vs complete SBO Has provider been notified: Yes DS: Diagnosis Discharge Diagnosis (1) Partial small bowel obstruction: (2) Hyponatremia: (3) Hypothyroidism: (4) Insomnia: Plan (1) Partial small bowel obstruction with GI blood loss. : Improving at the time of discharge (2) Hyponatremia: Improving at the time of discharge (3) Hypothyroidism: (4) Insomnia: (5) hypertension-up on day of discharge, continue to monitor as an outpatient (6) moderate protein calorie malnutrition-diet management (7) iron deficiency anemia as well as anemia of acute blood loss secondary to the partial small bowel obstruction.-can monitor as an outpatient (8) thrombocytopenia likely secondary to the above-monitor as an outpatient DS: Summary Hospital Course Hospital Course: Patient admitted with increasing abdominal pain. Found to have partial small bowel obstruction. NG tube was placed. Patient pulled out his NG tube but at that point was starting to pass gas. He was placed on clear liquid diet and the diet was advanced as tolerated. When I saw him this morning he was doing well with eating breakfast including toast and eggs. Passing gas and good bowel movements previous night. With overall improvement he can be discharged home in improved condition. Medications see list. Follow-up with PCP within the next week. -To follow-up and will be a source of acute blood loss anemia, hypothyroidism, thrombocytopenia. Time Spent with Patient Time attestation: Total time spent providing and/or coordinating discharge services: Exam Constitutional Vital Signs, click to edit/add: Last Vital Signs Temp 98.8 F 09/08/23 03:25 Pulse 85 09/08/23 03:25 Resp 18 09/08/23 07:46 BP 142/87 H 09/08/23 03:25 Pulse Ox 93 L 09/08/23 03:25 O2 Del Method Room Air 09/08/23 03:25 Documenting provider has reviewed patient's vital signs: yes Common normals: no apparent distress Chest Common normals: inspection of chest normal Respiratory Common normals: normal respiratory effort and no retractions Cardio Common normals: regular rate, regular rhythm and no murmurs GI Common normals: Normal to inspection, nondistended, normoactive bowel sounds present and soft to palpation; tender (Minimal diffuse tender mass, no rebound tenderness) DS: Data Data Completed and Pending Labs on day of discharge: Labs from last 24 hours 09/08/23 09/07/23 09/07/23 04:45 16:30 11:52 WBC 5.5 RBC 3.15 L Hgb 10.3 L Hct 30.0 L MCV 95.2 H MCH 32.7 MCHC 34.3 RDW 17.2 H Plt Count 141 L MPV 9.1 L Neut % (Auto) 66.0 Lymph % (Auto) 14.7 L [place] % (Auto) 14.2 H Eos % (Auto) 3.8 Baso % (Auto) 1.1 Neut # (Auto) 3.6 Lymph # (Auto) 0.8 L [place] # (Auto) 0.8 Eos # (Auto) 0.2 Baso # (Auto) 0.1 Abs Immat Gran (auto) 0.01 Imm/Tot Granulo (auto) 0.2 Sodium 135 L Potassium 3.9 Chloride 103 Carbon Dioxide 22.0 Anion Gap 13.9 BUN 5.0 L Creatinine 0.70 Est GFR ( Amer) >60 Est GFR (Non-Af Amer) >60 BUN/Creatinine Ratio 7.1 Glucose 71 L Calcium 8.2 L Total Bilirubin 0.8 AST 11 L ALT 11 L Alkaline Phosphatase 101 Total Protein 5.7 L Albumin 2.6 L Globulin 3.1 Albumin/Globulin Ratio 0.8 Free T4 0.88 TSH & Free T4 Interp 11.597 H Stool Occult Blood Positive A Discharge Plan Discharge Disposition: Home, Self-Care Discharge Medications: New amoxicillin-pot clavulanate 875-125 mg tablet 1 tab PO Q12H Qty: 20 0RF levothyroxine 100 mcg capsule 100 mcg PO DAILY Qty: 30 11RF pantoprazole [Protonix] 40 mg tablet,delayed release (DR/EC) 40 mg PO DAILY 28 Days Qty: 28 0RF Continued aspirin 81 mg tablet,delayed release (DR/EC) 81 mg PO QDAY folic acid 1 mg tablet 1 mg PO QDAY quetiapine 100 mg tablet 100 mg PO .COMPLEX Rx Instructions: 100 mg orally QAM + 2QPM; Discontinued levothyroxine 50 mcg tablet 50 mcg PO DAILY Print Language: Slovak Patient Instructions: Amoxicillin (By mouth), Pantoprazole (By mouth), Bowel Obstruction (DC) Activity Restrictions/Additional Instructions: - Take OTC Cetirizine (Zyrtec) or Fexofenadine ([place]) for runny nose Forms: Portal Instructions Follow Up Appointments: Please call PCP on Sunday to schedule a follow up appointment to be seen within a week. Discharge Date/Time: 09/08/23 10:46
--- NOTE | 2023-09-08 10:09 | P.GSPN_ITS ---
Progress Note: A&P Assessment and Plan (1) Partial small bowel obstruction: (2) Hyponatremia: (3) Hypothyroidism: (4) Insomnia: Plan Suspected partial SBO vs. gastritis vs. ileus, now resolved after conservative therapy. NG output with only clear mucous. Pt is eating and stooling without issue. Appropriate for discharge from surgery perspective. Plan -Regular diet -Recommend outpatient f/u with PCP regarding hospitalization -Recommend colonoscopy in near future as pt is due -Surgery signing off Subjective Subjective Patient reports: no new complaints Interval history: Pt is feeling much improved this morning and is eager to return home. States NG tube was accidently removed yesterday while undressing. It had had small volume clear, mucous output only and had stopped spontaneously before removal. His abdominal pain has resolved and he has had a BM. Tolerated clear liquids yesterday and full diet breakfast this AM. Pt states he can feel a narrowing like a speed bump low in his left groin as gas and stool passes through this area. He states it is not painful. Denies nausea. Exam Narrative Exam Narrative: General: Appears comfortable seated in bedside chair. Well-developed, well- nourished HEENT: NC/AT Abd: soft, nontender to light palpation, normoactive bowel sounds. Pt does have irregular, firm, mobile mass left groin where he endorses bowel speed bump Neuro: no focal deficits Psych: normal speech, euthymic mood and affect, cooperative Constitutional Vital Signs, click to edit/add: Last Vital Signs Temp 98.8 F 09/08/23 03:25 Pulse 85 09/08/23 03:25 Resp 18 09/08/23 07:46 BP 142/87 H 09/08/23 03:25 Pulse Ox 93 L 09/08/23 03:25 O2 Del Method Room Air 09/08/23 03:25
--- NOTE | 2023-09-10 14:23 | CM.DCFOLLOWU ---
Person spoke with: patient How are you feeling? well How is your pain? none at this time Did you understand your discharge instructions? yes Do you have any questions about your discharge instructions? no Were you given any prescriptions at discharge? yes Were you able to get your prescriptions filled? yes Do you understand how to take your medications as ordered? yes Do you have any questions about your follow up appointment and do you plan to keep your follow up appointment? no questions, follow up with PCP scheduled Is there anything else that you would like to discuss? no Questions/Comments/Concerns/Other: N/A
== END 2023-09-08 10:46 | disposition home or self-care (01) | DRG 389 ==
LOC: ER 13:05 → MS 14:20
PROVIDERS: Admitting Provider Nurse Practitioner; Emergency Provider Emergency Medicine; PCP Family Medicine; Visit Provider Family Medicine
DX: K56.600 Partial intestinal obstruction, unspecified as to cause (principal); D62 Acute posthemorrhagic anemia; E87.1 Hypo-osmolality and hyponatremia; E44.0 Moderate protein-calorie malnutrition; E03.9 Hypothyroidism, unspecified; G47.00 Insomnia, unspecified; I10 Essential (primary) hypertension; D50.9 Iron deficiency anemia, unspecified; M94.0 Chondrocostal junction syndrome [Tietze]; D69.6 Thrombocytopenia, unspecified; Z85.118 Personal history of other malignant neoplasm of bronchus and lung; Z68.20 Body mass index [BMI] 20.0-20.9, adult; Z98.52 Vasectomy status; Z72.0 Tobacco use; F12.90 Cannabis use, unspecified, uncomplicated; Z79.82 Long term (current) use of aspirin; Z79.890 Hormone replacement therapy; Z79.899 Other long term (current) drug therapy
CPT/HCPCS: 36415; 36591; 74018; 74022; 74177; 80053; 81003; 82248; 83605; 83690; 83880; 84439; 84443; 84484; 85025; 93005; 96361; 96372; 96374; 96375; 96376; 99285; G0328; J1170; Q9966; Q9967

== ENCOUNTER 2023-10-09 15:00 | Outpatient (OUT) | payer OTHER, MEDICARE, MEDICAID, SELFPAY ==
--- NOTE | 2023-10-09 15:04 | XR_ITS ---
The [address] [address] Patient Name: TONI GERBER MRN: [id number] date: 1965 Sex: M Assigned Patient Location: [facility] Current Patient Location: Accession/Order Number: [id number] Exam Date: 10/09/2023 15:25 Report Date: 10/10/2023 07:40 At the request of: NON-STAFF PHYSICIAN Procedure: XR chest w decubitus EXAMINATION: XR chest w decubitus HISTORY: Shortness of breath R06.02 COMPARISON: 06/18/2022 TECHNIQUE: PA and lateral FINDINGS: LUNGS: Right lung volume loss. Minimal patchy opacities right mid to lower lung zone. VASCULATURE: No increased pulmonary vasculature. PLEURA: Blunting of the right lateral costophrenic angle, tiny right pleural effusion CARDIAC: No cardiomegaly or cardiac silhouette abnormality. MEDIASTINUM: No visible mass or adenopathy. BONES: No fracture or visible bone lesion. OTHER: Left Port-A-Cath XR/XR chest w decubitus IMPRESSION: Tiny right pleural effusion Electronically authenticated by: MARCE GOULD Date: 10/10/2023 07:40
== END 2023-10-09 15:01 | disposition home or self-care (01) ==
PROVIDERS: PCP Family Medicine
DX: R06.02 Shortness of breath (principal); C34.90 Malignant neoplasm of unspecified part of unspecified bronchus or lung; J90 Pleural effusion, not elsewhere classified
CPT/HCPCS: 71048

== ENCOUNTER 2023-11-06 22:42 | Inpatient (IN) | payer OTHER, MEDICARE, MEDICAID, SELFPAY ==
[2023-11-06] VITALS (11 sets, daily range): BP systolic 124; BP diastolic 96; PULSE 92–119; TEMP 36.8; O2SAT 97–99; BMI 19.5
--- NOTE | 2023-11-06 23:02 | ED.SOB1 ---
HPI - SOB/Dyspnea General Chief Complaint: Shortness of Breath/Dyspnea Stated Complaint: Shortness of Breath Time Seen by Provider: 11/06/23 22:43 Source: patient Mode of arrival: walk-in History of Present Illness HPI Narrative: This 58-year-old male who was diagnosed with small cell carcinoma of the lung in and underwent radiation therapy and is under the care of of [facility] oncology presents for evaluation of increasing shortness of breath. He is not currently receiving chemotherapy but does have a Mediport. The patient states he can only walk several steps without becoming extremely short of breath and feeling like he is going to pass out. He has had (what sounds like) pleural effusions that have had to be drained at [facility]. He has a history of tobacco use but no longer smokes cigarettes but occasionally puffs on a cigar. He states he recently has had a 20 pound weight loss. He is having nausea and vomiting and intermittent diarrhea. He has generalized weakness. He denies any abdominal pain at this time. He states that when he tries to eat anything he vomits mucus. He denies any fever or chills. He has ongoing pressure in his chest. Related Data Home Medications ?Medication ?Instructions ?Recorded ?Confirmed aspirin 81 mg tablet,delayed 81 mg PO QDAY 01/02/23 09/06/23 release folic acid 1 mg tablet 1 mg PO QDAY 01/02/23 09/06/23 quetiapine 100 mg tablet 100 mg PO .COMPLEX 01/02/23 09/06/23 cyanocobalamin (vitamin B-12) mcg 11/06/23 1,000 mcg tablet (Vitamin B-12) fluticasone 250 mcg-salmeterol 50 inhalation 11/06/23 mcg/dose blistr powdr for inhalation ketorolac 0.5 % eye drops drp ophthalmic (eye) 11/06/23 levothyroxine 100 mcg tablet mcg 11/06/23 melatonin 3 mg tablet mg 11/06/23 ofloxacin 0.3 % eye drops drp 11/06/23 prednisolone acetate 1 % eye drp ophthalmic (eye) 11/06/23 drops,suspension Previous Rx's ?Medication ?Instructions ?Recorded amoxicillin 875 mg-potassium 1 tab PO Q12H #20 tabs 09/08/23 clavulanate 125 mg tablet levothyroxine 100 mcg capsule 100 mcg PO DAILY #30 caps 09/08/23 pantoprazole 40 mg tablet,delayed 40 mg PO DAILY 4 weeks #28 tabs 09/08/23 release (Protonix) Allergies Allergy/AdvReac Type Severity Reaction Status Date / Time No Known Drug Allergies Allergy Verified 09/06/23 10:07 Review of Systems ROS Status of ROS 10 or more systems reviewed and unremarkable except as noted in history and below [facility] Medical History (Updated 11/07/23 @ 04:50 by Melissa Ralph MD) Costochondritis ?M94.0 - Chondrocostal junction syndrome [[place]] (ICD-10) Hyponatremia ?E87.1 - Hypo-osmolality and hyponatremia (ICD-10) Partial small bowel obstruction ?K56.600 - Partial intestinal obstruction, unspecified as to cause (ICD-10) Insomnia ?G47.00 - Insomnia, unspecified (ICD-10) Hypothyroidism ?E03.9 - Hypothyroidism, unspecified (ICD-10) Lung cancer ?C34.90 - Malignant neoplasm of unspecified part of unspecified bronchus or lung (ICD-10) Hypertension ?I10 - Essential (primary) hypertension (ICD-10) Surgical History (Updated 09/06/23 @ 14:27 by Jeanine Carey RN) H/O vasectomy ?Z98.52 - Vasectomy status (ICD-10) Family History (Updated 09/06/23 @ 14:28 by Jeanine Carey RN) Father Family history of cancer Family history of COPD (chronic obstructive pulmonary disease) Mother Family history of diabetes mellitus Family history of COPD (chronic obstructive pulmonary disease) Brother Family history of diabetes mellitus Sister Family history of diabetes mellitus Social History (Updated 09/06/23 @ 14:29 by Jeanine Carey RN) Within the past year, how often did you have a drink containing alcohol: 4 or more times a week Smoking status: Light tobacco smoker Non-prescribed substance use: cannabis (any form) Highest level of school completed/degree received: 12th grade, no diploma Exam Narrative Exam Narrative: Vital signs and Nursing Notes reviewed: Patient is afebrile, mildly tachycardic upon arrival, has an elevated diastolic blood pressure at 124/96, he is not hypoxic with pulse ox of 99% on 2 L nasal cannula. His pulse ox was 96% on room air but he was having conversational dyspnea and more comfortable on the 2 L nasal cannula General: Thin -[place] male looking older than his stated age, mild conversational dyspnea, no jesus respiratory distress HEENT: Normocephalic atraumatic, mucous membranes are moist and pink, eyes are clear, normal conjunctiva, vision is grossly intact, posterior pharynx is normal in appearance. Neck: Supple, no meningeal signs Chest: Lungs are clear to auscultation with good air entry, there is no wheezing or rhonchi appreciated, slight rales in the right base, no accessory muscle use noted CVS: Regular rate and rhythm S1-S2, no murmurs rubs or gallops, pulses are brisk and equal bilaterally ABD: Soft, nondistended, nontender, no rebound guarding or rigidity, bowel sounds are mildly hyperactive, no pulsatile masses appreciated Extremities: Moving all extremities, no lower extremity tenderness or swelling noted, negative Homans' sign, pulses are brisk and equal bilaterally Skin: Normal in appearance without rash,pallor, petechiae or purpura Neuro: No focal deficits Constitutional Vital Signs, click to edit/add: Last Vital Signs Temp 98.1 F 11/07/23 04:08 Pulse 103 H 11/07/23 04:08 Resp 18 11/07/23 04:08 BP 149/88 H 11/07/23 04:08 Pulse Ox 96 11/07/23 04:08 O2 Del Method Room Air 11/07/23 04:08 O2 Flow Rate 2 11/07/23 00:01 Course Vital Signs Vital signs: Vital Signs Temperature 98.3 F 11/06/23 22:46 Pulse Rate 108 H 11/06/23 22:46 Respiratory Rate 20 11/06/23 22:46 Blood Pressure 124/96 H 11/06/23 22:46 Pulse Oximetry 97 11/06/23 22:46 Oxygen Delivery Method Room Air 11/06/23 22:46 Temperature 98.1 F 11/07/23 04:08 Pulse Rate 103 H 11/07/23 04:08 Respiratory Rate 18 11/07/23 04:08 Blood Pressure 149/88 H 11/07/23 04:08 Pulse Oximetry 96 11/07/23 04:08 Oxygen Delivery Method Room Air 11/07/23 04:08 Oxygen Delivery Flow Rate 2 11/07/23 00:01 MDM - SOB/Dyspnea MDM Narrative Medical decision making narrative: This 58-year-old male who was diagnosed with small cell lung cancer in 2018 2019 and had radiation therapy and has a history of COPD with a former history of tobacco use who now occasionally uses a cigar presents for evaluation of increasing shortness of breath. He states he gets extremely short of breath with any exertion including walking 3 or 4 steps or trying to vacuum his house. The patient lives alone. He states he has been having nausea vomiting and diarrhea and cannot keep anything down. He was admitted here in the past for a bowel obstruction. He has not had a fever. He has an intermittent cough and pain in his chest. He denies any hemoptysis dizziness or syncope. He has no abdominal pain. He was dyspneic upon arrival with conversational dyspnea but his lungs were clear, pulse ox was in the low 90s. Upon arrival an EKG was ordered that was a sinus tachycardia. An IV was placed and he was medicated with IV Solu-Medrol and a DuoNeb. He was given IV fluids and on reevaluation he stated he was feeling better. He was given Gatorade and peanut butter crackers to eat after a dose of Zofran and tolerated them well without any vomiting or resultant diarrhea. The patient has normal white count and stable hemoglobin. Electrolytes revealed a hyponatremia with a sodium of 123 and hypochloremia with a chloride of 89. I considered this as a possible paraneoplastic syndrome. He has a normal BNP, normal troponin, normal lactic acid. Lipase was also normal at 49. Due to his complaint of shortness of breath which has been increasing and history of lung cancer a CTA of the chest was ordered. The CTA shows no pulmonary embolus, severe emphysematous changes in both lungs with chronic interstitial scarring bilaterally, stable chronic pleural-parenchymal scarring and chronic atelectasis through the right lung with no new airspace disease since the previous examination, mucus in the right mainstem bronchus, small right pleural effusion with no left pleural effusion otherwise no acute nodules masses or infiltrates in the lungs. The patient did not have any nausea vomiting or diarrhea while in the emergency department. He was feeling better and was maintained on the supplemental oxygen for comfort. He did not have any notable hypoxia while in the emergency department although he was not asked to exert himself. The patient does live alone and appears to be failing to thrive. The case was discussed with the hospitalist and patient accepted for admission to [facility]. I did discuss admission to a rehab facility for his deconditioned physical status. He did not seem to be opposed to this idea. Medical Records Medical records narrative: [facility] [place] [id number] XRay Report Signed Patient: TONI GERBER MR#: [id number] : 1965 Acct:[id number] Age/Sex: 58 / M ADM Date: 11/06/23 Loc: ER Attending Dr: Ordering Physician: Melissa Ralph Date of Service: 11/06/23 Procedure(s): XR chest 1V Accession Number(s): [id number] cc: DANNA QURESHI ; Melissa Ralph~ [facility] [place] [address] Patient Name: TONI GERBER MRN: [id number] date: 1965 Sex: M Assigned Patient Location: ER Current Patient Location: ER Accession/Order Number: [id number] Exam Date: 11/06/2023 23:30 Report Date: 11/07/2023 00:13 At the request of: MARKER Procedure: XR chest 1V CXR HISTORY: Shortness of breath. COMPARISON: None. TECHNIQUE: 1 view of the chest submitted for review. FINDINGS: Lines and tubes: None Lungs are hyperaerated. Port-A-Cath is seen on the left. Airspace opacity in the right lower lobe. The cardiac silhouette measures within normal. Pulmonary vascularity is unremarkable. Osseous structures are normal for age. XR/XR chest 1V IMPRESSION: Airspace opacity in the right lower lobe. Please correlate for pneumonia versus atelectasis. Electronically authenticated by: JEFFERY JUNIOR Date: 11/07/2023 00:[address] [place] [id number] Scan Report Signed Patient: TONI GERBER MR#: [id number] : 1965 Acct:[id number] Age/Sex: 58 / M ADM Date: 11/06/23 Loc: ER Attending Dr: Ordering Physician: Melissa Ralph Date of Service: 06/26/24 Procedure(s): CT angio chest Accession Number(s): [id number] cc: DANNA QURESHI ~ The [address] [address] Patient Name: TONI GERBER MRN: [id number] date: 1965 Sex: M Assigned Patient Location: ER Current Patient Location: ER Accession/Order Number: [id number] Exam Date: 11/07/2023 00:48 Report Date: 11/07/2023 02:51 At the request of: MARKER Procedure: CT angio chest EXAMINATION:CT angio chest INDICATION:SOB, hx lung ca COMPARISON:01/02/2023 TECHNIQUE:Thin section transaxial slices were acquired through the chest with intravenous contrast per PE protocol. Coronal and sagittal reconstructed images were reviewed. FINDINGS: PULMONARY ARTERIES: There is excellent opacification of the pulmonary vasculature. No suspicious pulmonary arterial filling defects are identified to suggest pulmonary embolus. LUNGS: There is severe emphysematous changes are present in the lungs with chronic interstitial scarring bilaterally. There is stable chronic pleural-parenchymal scarring and chronic atelectasis throughout the right lung. No new airspace disease has developed in the lungs since the previous examination. PLEURAL CAVITY: There is a similar small right pleural effusion. No left pleural effusion is present. MEDIASTINUM: There is mucus in the right mainstem bronchus. HEART: There are mild coronary artery calcifications.There is no evidence of right heart strain. VASCULAR:No aneurysm or dissection of the thoracic aorta. LYMPH NODES:No suspicious lymphadenopathy. CHEST WALL/AXILLA: Chest wall and axilla are unremarkable. BONES: Endplate degenerative disc disease is present in the thoracic spine. VISUALIZED UPPER ABDOMEN: Upper abdominal structures are unremarkable. CT/CT angio chest IMPRESSION: 1. No evidence of pulmonary embolus. 2. Severe emphysematous changes in the lungs with chronic interstitial lung disease. Similar chronic pleural parenchymal scarring in the right lung along with a small right pleural effusion. No acute nodules, masses or infiltrates in the lungs. Electronically authenticated by: CHASTITY BELTRAN Date: 11/07/2023 02:51 Lab Data Attestation: I reviewed the patient's lab results. Labs: Lab Results 11/06/23 Range/Units 23:30 WBC 4.9 (4.0-11.0) 10^3/uL RBC 4.36 L (4.70-6.10) 10^6/uL Hgb 14.1 (14.0-18.0) g/dL Hct 39.5 L (42.0-54.0) % MCV 90.6 (80.0-94.0) fL MCH 32.3 (25.9-34.0) pg MCHC 35.7 H (29.9-35.2) g/dL RDW 13.5 (11.0-15.0) % Plt Count 116 L (150-450) 10^3/uL MPV 9.6 (9.5-13.5) fL Neut % (Auto) 56.7 (43.0-75.0) % Lymph % (Auto) 22.3 (20.5-60.0) % [place] % (Auto) 15.3 H (1.7-12.0) % Eos % (Auto) 3.9 (0.9-7.0) % Baso % (Auto) 1.0 (0.2-2.0) % Neut # (Auto) 2.8 (1.4-6.5) 10^3/uL Lymph # (Auto) 1.1 L (1.2-3.8) 10^3/uL [place] # (Auto) 0.8 (0.3-0.8) 10^3/uL Eos # (Auto) 0.2 (0.0-0.7) 10^3/uL Baso # (Auto) 0.1 (0.0-0.1) 10^3/uL Abs Immat Gran (auto) 0.04 H (0.00-0.03) 10^3/uL Imm/Tot Granulo (auto) 0.8 H (0.0-0.5) % Sodium 123 L* (136-145) mmol/L Potassium 3.8 (3.5-5.1) mmol/L Chloride 89 L (98-107) mmol/L Carbon Dioxide 23.1 (21.0-32.0) mmol/L Anion Gap 14.7 BUN 5.0 L (7.0-18.0) mg/dL Creatinine 0.90 (0.70-1.30) mg/dL Est GFR ( Amer) >60 (>=60) Est GFR (Non-Af Amer) >60 (>=60) BUN/Creatinine Ratio 5.6 Glucose 81 (74-106) mg/dL Lactate 1.2 (0.4-2.0) mmol/L Calcium 9.0 (8.5-10.1) mg/dL Total Bilirubin 0.9 (0.2-1.0) mg/dL AST 42 H (15-37) U/L ALT 39 (16-63) U/L Alkaline Phosphatase 178 H (46-116) U/L Troponin I High Sens 8.6 (4.0-76.1) pg/mL NT-Pro-B Natriuret Pep 361.0 (<=900.0) pg/mL Total Protein 8.0 (6.4-8.2) g/dL Albumin 3.9 (3.4-5.0) g/dL Globulin 4.1 g/dL Albumin/Globulin Ratio 1.0 Lipase 49.0 (16.0-77.0) U/L ECG Data Attestation: I personally reviewed and interpreted this ECG as follows: ([place] tachycardia at 110 bpm, normal axis, Q-wave noted in lead V1 and V3, no acute ST segment elevation or T wave inversion) Discharge Plan Discharge Chief Complaint: Shortness of Breath/Dyspnea Clinical Impression: Acute exacerbation of chronic obstructive pulmonary disease (COPD), Acute hyponatremia, Adult failure to thrive, History of lung cancer in adulthood Patient Disposition: Admitted As Inpatient Time of Disposition Decision: 04:50 Condition: Fair Discharge Date/Time: 11/07/23 03:42
--- OUTSIDE RECORDS SUMMARY | 2023-11-06 23:04 | XMS_ITS | CCD ---
Author Organization [facility] Care Team Providers Care Fashion Journalist Name Role Phone Salam, Galloway Unavailable Unavailable Salam, Galloway Unavailable Unavailable Salam, Galloway Unavailable Unavailable RYLAN ANDREA~[id number] UNKNOWN Unavailable Unavailable CUBA ESQUIVEL Unavailable Unavailable CUBA ESQUIVEL Unavailable Unavailable KEISHA GILL Referring Unavailable JOSAFATMEDKEISHA Primary Care Unavailable Rylan Andrea Unavailable Unavailable Unavailable Anita Lincoln Unavailable Rylan Andrea Primary Care Unavailable Dr. Lukas Oliveira Referring Unavailable Dr. Lukas Oliveira Attending Unavailable Estela Varma Referring Unavail able Rylan Andrea Primary Care Unavailable Dr. Lukas Oliveira Attending Unavailable Rylan Andrea Primary Care Unavailable Dr. Lukas Oliveira Referring Unavailable Dr. Lukas Oliveira Attending Unavailable MD Rylan Andrea Primary Care Provider [phone] MD Varghese Duval Referring Provider [phone] DO Estela Varma II Attending Provider MD Rylan Andrea Primary Care Provider [phone] MD Varghese Duval Referring Provider DO Estela Varma II Attending Provider DO Kali Longo Emergency Provider [phone] MD Tez Irene Admit Provider [phone] MD Tez Irene Attending Provider [phone] MD Rylan Andrea Primary Care Provider DO Estela Varma II Other Provider MD Varghese Duval Referring Provider Adamowicz II, DO Estela J Attending Provider MD Varghese Duval Referring Provider [phone] Adamowicz II, DO Estela J Attending Provider [phone] MD Rachid Chase Attending Provider MD Varghese Duval Attending Provider Adamowicz II, DO Estela J Attending Provider MD Annette Guardado Other Provider MD Varghese Duval Referring Provider Rachid Chase Unavailable MD Rylan Andrea Primary Care Provider [phone] MD Varghese Duval Referring Provider Adamowicz II, DO Estela J Attending Provider [phone] YULY Isidro Attending Provider EMRE, DR CLAY Primary Care Unavailable ADAMOWICZ, ESTELA J Admitting Unavailable ADAMOWICZ, ESTELA J Attending Unavailable ADAMOWICZ, ESTELA J Consulting Unavailable ANDREA, DR CLAY Primary Care Unavailable ADAMOWICZ, ESTELA J Admitting Unavailable ADAMOWICZ, ESTELA J Attending Unavailable ADAMOWICZ, ESTELA J Consulting Unavailable ANDREA, DR CLAY Primary Care Unavailable ADAMOWICZ, ESTELA J Admitting Unavailable ADAMOWICZ, ESTELA J Attending Unavailable ADAMOWICZ, ESTELA J Consulting Unavailable [place], DR MARCE Fernandez Consulting Unavailable NADERER, DR LIZBET Flaherty Admitting Unavailable NADERER, DR LIZBET Flaherty Attending Unavailable ANDREA, DR CLAY Primary Care Unavailable NADERER, DR LIZBET Flaherty Consulting Unavailable SAHIL ., DR ROUSE Consulting Unavailable ALEXANDRIA, DR MELANI Davis Admitting Unavailabl e REINECK, DR MELANI Davis Attending Unavailabl e REINECK, DR MELANI Davis Consulting Unavailabl e ANDREA, DR CLAY Primary Care Unavailable MARCE SHAY Consulting Unavailable RACHEL, DR JESSE Norton Consulting Unavailable DIAB ., JEVON Admitting Unavailable DIAB ., JEVON Attending Unavailable ANDREA, DR CLAY Primary Care Unavailable DIAB ., JEVON Consulting Unavailable ANDREA, DR CLAY Primary Care Unavailable ADAMOWICZ, ESTELA J Admitting Unavailable ADAMOWICZ, ESTELA J Attending Unavailable ADAMOWICZ, ESTELA J Consulting Unavailable ANDREA, DR CLAY Primary Care Unavailable ADAMOWICZ, ESTELA J Attending Unavailable ADAMOWICZ, ESTELA J Consulting Unavailable ADAMOWICZ, ESTELA J Admitting Unavailable ANDREA, DR CLAY Admitting Unavailable ZIEBER, DR JESSE Norton Consulting Unavailable ANDREA, DR CLAY Primary Care Unavailable ANDREA, DR CLAY Attending Unavailable ANDREA, DR CLAY Consulting Unavailable MD Rylan Andrea Primary Care Provider MD Varghese Duval Referring Provider Adamowicz II, DO Estela Rosales Attending Provider KIKO Molina Emergency Provider [phone] MD Varghese Duval Referring Provider Adamowicz II, DO Estela Rosales Attending Provider MD Varghese Duval Referring Provider [phone] Adamowicz II, DO Estela Rosales Attending Provider [phone] Rylan Andrea MD Primary Care Provider [phone] Kailey RN TRANSITIONAL CARE, Marilu Unavailable Sanna RN TRANSITIONAL CARE, Nilsa R Unavailable Eliseo GIBSON, Morenita Unavailable Carlota JIANG, Sanjuana Unavailable MD Rylan Andrea Primary Care Provider MD Varghese Duval Referring Provider [phone] Adamowicz II, DO Estela Rosales Attending Provider [phone] RYLAN ANDREA Referring Unavailable RYLAN ANDREA A Primary Care Unavailable RYLAN ANDREA A Referring Unavailable RYLAN ANDREA A Primary Care Unavailable Humberto Molina Admitting Unavailable Humberto Molina Attending Unavailable Rylan Andrea Primary Care Unavailable Rylan Andrea Primary Care Unavailable Nilsa Isidro Admitting Unavailable Nilsa Isidro Attending Unavailable Rylan Andrea Primary Care Unavailable Adamowicz II, Estela J Admitting Unavaila Estela Maxwell II Attending Unavaila Varghese Skelton Referring Unavailable RYLAN ANDREA Attending Unavailable KAILEY, MARILU Attending Unavailable KAILEY, MARILU Attending Unavailable KAILEY, MARILU Referring Unavailable KAILEY, MARILU Attending Unavailable FLORINDA MONK Attending Unavailable Allergies Allergy Classification Reported Allergen(s) Allergy Type Date of Onset Reaction(s) Facility (4 sources) chlordiazePOXID E; Translations: [Librium] Drug Allergy Unknown [facility] (18 sources) Lisinopril Drug Allergy 2 Unknown, Swelling of Lip/Tongue/Thro at [facility] (20 sources) Sertraline; Translations: [sertraline] Drug Allergy 2 Swelling of Lip/Tongue/Thro at [facility] (7 sources) chlordiazePOXID E; Translations: [chlordiazepoxi de] Drug Allergy 3 Edema [facility] (1 source) Amino Acids Drug Allergy [facility] (1 source) Sertraline Drug Allergy 2 [facility] (4 sources) Lisinopril Allergy to substance 3 [facility] (1 source) Lisinopril Drug Allergy 4 [facility] Rep[facility] Medications Current Medications Medication Drug Class(es) Dates Sig (Normalized) Sig (Original) amLODIPine 5 mg oral tablet (20 sources) Dihydropyridine Calcium Channel Joel Start: 09-04-2022 amLODIPine (Norvasc) 5 MG tablet Start: 09-01-2020 End: 06-15-2022 take 5 mg by mouth once daily Amlodipine Discontinued 5 MG PO Daily August 31, 2020 11:00pm June 15, 2022 1:51pm Start: 07-30-2019 End: 08-17-2020 take 1 tablet by mouth once daily in the morning Amlodipine (Norvasc) 5 mg tablet Discontinued 5 MG PO Every morning July 29, 2019 11:00pm August 17, 2020 8:44am aspirin 81 mg delayed release oral tablet (20 sources) Platelet Aggregation Inhibitor, Nonsteroidal Anti-inflammatory Drug Start: 09-08-2021 take 81 mg by mouth once daily Aspirin Active 81 MG PO Daily September 08, 2021 11:00pm Start: 05-03-2020 End: 08-17-2020 take 81 mg by mouth once daily Aspirin Discontinued 81 MG PO Daily May 03, 2020 12:00am August 17, 2020 8:44am Start: 03-02-2020 End: 05-03-2020 take 81 mg by mouth once daily Aspirin Discontinued 81 MG PO Daily March 01, 2020 11:00pm May 03, 2020 10:59am take 1 tablet by dhaval th once daily Aspirin 81 81 MG 1 tablet Orally Once a day Active 60 actuat fluticasone propionate 0.25 mg/actuat / salmeterol 0.05 mg/actuat dry powder inhaler (20 sources) Corticosteroid, beta2-Adrenergic Agonist Start: 10-13-2021 take 1 puff(s) by inhalation once fluticasone-salmeterol (Advair Diskus) 250-50 MCG/DOSE diskus inhaler 1 puff every 12 (twelve) hours. 0 10/13/2021 Active Start: 09-09-2021 End: 09-04-2022 Fluticasone Propion-Salmeter ol (Advair Diskus) 250-50 mcg/dose Blister With Device Discontinued 1 INH INHALATION Daily September 08, 2021 11:00pm September 04, 2022 10:24am Start: 09-09-2021 End: 09-04-2022 Fluticasone Propion-Salmeter ol (Advair Diskus) 250-50 mcg/dose Blister With Device Discontinued 1 INH INHALATION Daily September 09, 2021 12:00am September 04, 2022 11:24am Start: 09-09-2021 Fluticasone Pr opion-Salmeterol (Advair Diskus) 250-50 mcg/dose Blister With Device Active 1 INH INHALATION Daily September 08, 2021 11:00pm Start: 09-09-2021 Fluticasone Pr opion-Salmeterol (Advair Diskus) 250-50 mcg/dose Blister With Device Active 1 INH INHALATION Twice daily September 08, 2021 11:00pm Start: 09-09-2021 Fluticasone Pr opion-Salmeterol (Advair Diskus) 250-50 mcg/dose Blister With Device Active 1 INH INHALATION Twice daily September 09, 2021 12:00am take 1 puff(s) by in halation every twelve hours Advair Diskus 250-50 MCG/ACT Inhalation Aerosol Powder Breath Activated INHALE 1 PUFF EVERY 12 HOURS. Quantity: 0 Refills: 0 Ordered: 08-Sep-2021 DO Active folic acid 1 mg oral tablet (9 sources) Start: 11-01-2022 take 1 mg by mouth once daily Folic Acid Active 1 MG PO Daily December 24, 2022 11:00pm melatonin 3 mg oral tablet (20 sources) Start: 04-12-2023 End: 10-09-2023 melatonin 3 MG tablet Indications: Primary insomnia Take 1 tablet (3 mg) by mouth as needed at bedtime for sleep. 30 tablet 5 04/12/2023 10/09/2023 Active Start: 04-10-2022 End: 09-04-2022 take 3 mg by mouth at bedtime Melatonin Discontinued 3 MG PO Bedtime April 10, 2022 12:00am September 04, 2022 10:23am Start: 09-01-2020 End: 02-01-2021 take 3 mg by mouth at bedtime Melatonin Discontinued 3 MG PO Bedtime August 31, 2020 11:00pm February 01, 2021 9:52am Start: 07-30-2019 End: 08-17-2020 take 3 mg by mouth at bedtime Melatonin Discontinued 3 MG PO Bedtime June 06, 2020 12:00am August 17, 2020 8:43am QUEtiapine 100 mg oral tablet (20 sources) Atypical Antipsychotic Start: 04-10-2022 take 200 mg by mouth once daily at bedtime Quetiapine Active 200 MG PO Daily at bedtime April 10, 2022 12:00am Start: 04-05-2021 End: 06-27-2023 take 1 tablet by mouth once daily QUEtiapine (SEROquel) 100 MG tablet Indications: Current moderate episode of major depressive disorder without prior episode (HCC) (CMS/HCC) Take 1 tablet (100 mg) by mouth 1 (one) time each day at the same time 30 tablet 0 05/28/2023 06/27/2023 Active Start: 04-05-2021 take 100 mg by mouth twice daily Quetiapine Active 100 MG PO Twice daily April 05, 2021 12:00am Start: 09-01-2020 End: 02-01-2021 take 1 tablet by mouth once daily at bedtime Quetiapine (Seroquel) 100 mg Tablet Discontinued 100 MG PO Daily at bedtime August 31, 2020 11:00pm February 01, 2021 9:53am Start: 12-01-2019 End: 08-03-2020 Quetiapine (Seroquel) 100 mg tablet Discontinued 150 MG PO Bedtime December 01, 2019 12:23pm August 03, 2020 10:18am Start: 08-04-2019 End: 12-01-2019 take 100 mg by mouth once daily at bedtime Quetiapine Discontinued 100 MG PO Daily at bedtime August 03, 2019 11:00pm December 01, 2019 12:23pm Start: 07-30-2019 End: 08-04-2019 take 100 mg by mouth once daily at bedtime Quetiapine Discontinued 100 MG PO Daily at bedtime July 29, 2019 11:00pm August 04, 2019 9:31am Start: 09-22-2017 End: 07-30-2019 take 50 mg by mouth once daily at bedtime Quetiapine Discontinued 50 MG PO Daily at bedtime September 21, 2017 11:00pm July 30, 2019 2:24pm take 1.5 tablets by mouth once daily at bedtime QUEtiapine Fumarate 100 MG TAKE 1.5 TABLETS BY MOUTH DAILY AT BEDTIME Oral Active vitamin b12 1 mg oral tablet (1 source) Vitamin B12 Start: 06-29-2023 take 1000 ug by mouth once daily Cyanocobalamin (Vitamin B-12) Active 1000 MCG PO Daily 60 June 29, 2023 12:00am Completed/Discontinued Medications Medication Drug Class(es) Dates Sig (Normalized) Sig (Original) acetaminophen 500 mg oral tablet (20 sources) Start: 08-17-2020 End: 09-01-2020 take 500 mg by mouth every six hours Acetaminophen Discontinued 500 MG PO Q6H August 16, 2020 11:00pm September 01, 2020 1:42pm Start: 07-26-2020 End: 07-26-2020 take 650 mg by mouth three times daily Acetaminophen Discontinued 650 MG PO Three times daily July 25, 2020 11:00pm July 26, 2020 3:16pm Start: 12-04-2019 take 2 tablets by mo uth every eight hours as needed acetaminophen (Tylenol) 325 MG tablet 650 mg Orally Q 8 hrs as needed 0 12/04/2019 Active Start: 12-04-2019 End: 02-26-2020 take 1 tablet by mouth every eight hours Acetaminophen (Tylenol 8 Hour) 650 mg tablet extended release Discontinued 650 MG PO Q8H 90 December 03, 2019 11:00pm February 26, 2020 1:07pm acetaminophen 325 mg / HYDROcodone bitartrate 5 mg oral tablet (20 sources) Opioid Agonist Start: 06-17-2022 End: 09-04-2022 take 1 tablet by mouth every six hours Hydrocodone-Acetaminophen Discontinued 1 - 2 TAB PO Q6H 40 June 17, 2022 September 04, 2022 10:24am Start: 12-03-2020 End: 02-01-2021 take 1 tablet by mouth every four to six hours Hydrocodone-Acetaminophen Discontinued 1 TAB PO EVERY 4-6 HOURS 10 December 03, 2020 February 01, 2021 9:52am Start: 11-06-2020 End: 02-01-2021 take 1 tablet by mouth three times daily Hydrocodone-Acetaminophen Discontinued 1 TAB PO Three times daily 9 November 06, 2020 February 01, 2021 9:51am acetaminophen 325 mg / oxyCODONE hydrochloride 5 mg oral tablet (20 sources) Opioid Agonist Start: 08-24-2021 End: 02-27-2022 take 1 tablet by mouth every six hours Oxycodone-Acetaminophen (Percocet) 5-325 mg Tablet Discontinued 1 TAB PO Q6H 28 August 24, 2021 February 27, 2022 1:34pm Start: 02-01-2021 End: 04-05-2021 take 1 tablet by mouth every four hours Oxycodone-Acetaminophen (Percocet) 5-325 mg Tablet Discontinued 1 TAB PO Q4H 30 February 01, 2021 April 05, 2021 10:47am Start: 12-04-2019 End: 05-03-2020 take 1-2 tablets by mouth every four hours Oxycodone-Acetaminophen (Percocet) 7.5-325 mg Tablet Discontinued 1 TAB PO Q4H 60 December 04, 2019 May 03, 2020 11:08am 1-2 tab #100 RF zero given on 12/29 [id number] 200 actuat albuterol 0.09 mg/actuat metered dose inhaler (20 sources) beta2-Adrenergic Agonist Start: 02-28-2020 End: 08-17-2020 Albuterol Sulfate Discontinued 2 INH INHALATION Four times daily February 27, 2020 11:00pm August 17, 2020 8:44am Start: 07-30-2019 End: 02-26-2020 take 2 puff(s) by inhalation four times daily as needed Albuterol Sulfate (Proair Hfa) 90 mcg/actuation HFA aerosol inhaler Discontinued 2 PUFF INHALATION Four times daily July 29, 2019 11:00pm February 26, 2020 1:07pm INHALE 2 PUFFS NEEDED 4 TIMES DAILY take 2 puff(s) by mo ut four times daily as needed Albuterol Sulfate HFA 108 (90 Base) MCG/ACT INHALE 2 PUFFS BY MOUTH 4 TIMES A DAY NEEDED Inhalation for 25 Active take 2 puff(s) by mo uth four times daily as needed Albuterol Sulfate HFA 108 (90 Base) MCG/ACT INHALE 2 PUFFS BY MOUTH 4 TIMES A DAY NEEDED Inhalation for 25 Active 24 hr alfuzosin hydrochloride 10 mg extended release oral tablet (15 sources) alpha-Adrenergic Joel Start: 09-22-2017 End: 07-30-2019 take 10 mg by mouth once daily Alfuzosin Discontinued 10 MG PO Daily September 21, 2017 11:00pm July 30, 2019 2:23pm bisacodyl 10 mg rectal suppository (15 sources) Stimulant Laxative Start: 08-17-2020 End: 09-01-2020 Bisacodyl (Dulcolax (Bisacodyl)) 10 mg Suppository Discontinued 10 MG VA Q24H August 16, 2020 11:00pm September 01, 2020 1:41pm buPROPion hydrochloride 100 mg oral tablet (20 sources) Aminoketone Start: 09-04-2022 End: 09-04-2022 Bupropion Hcl Discontinued 100 MG PO Three times daily September 03, 2022 11:00pm September 04, 2022 10:24am administer 6 hours apart Start: 08-23-2021 End: 02-27-2022 take 100 mg by mouth three times daily Bupropion Hcl Discontinued 100 MG PO Three times daily September 08, 2021 11:00pm February 27, 2022 1:34pm busPIRone hydrochloride 15 mg oral tablet (20 sources) Start: 09-01-2020 End: 02-01-2021 take 20 mg by mouth three times daily Buspirone Discontinued 20 MG PO Three times daily September 01, 2020 1:49pm February 01, 2021 9:51am Start: 08-03-2020 End: 09-01-2020 take 15 mg by mouth three times daily Buspirone Discontinued 15 MG PO Three times daily August 02, 2020 11:00pm September 01, 2020 1:50pm Start: 07-30-2019 End: 08-03-2020 take 10 mg by mouth three times daily Buspirone Discontinued 10 MG PO TID@0900,1400,0 December 01, 2019 1:14pm August 03, 2020 10:18am celecoxib 100 mg oral capsule (20 sources) Nonsteroidal Anti-inflammatory Drug Start: 11-29-2019 End: 07-26-2020 take 1 capsule by mouth twice daily Celecoxib (Celebrex) 100 mg capsule Discontinued 100 MG PO BID@0900,2100 December 01, 2019 12:23pm July 26, 2020 3:21pm further refills, if needed, per Palliative or PCP cyclobenzaprine hydrochloride 5 mg oral tablet (20 sources) Muscle Relaxant Start: 08-03-2020 End: 08-17-2020 take 5 mg by mouth every eight hours Cyclobenzaprine Discontinued 5 MG PO Q8H August 02, 2020 11:00pm August 17, 2020 8:43am Start: 07-26-2020 End: 07-26-2020 take 5 mg by mouth three times daily Cyclobenzaprine Discontinued 5 MG PO Three times daily July 25, 2020 11:00pm July 26, 2020 3:21pm Start: 12-04-2019 End: 06-06-2020 take 5 mg by mouth every eight hours Cyclobenzaprine Discontinued 5 MG PO Q8H December 04, 2019 12:34pm June 06, 2020 3:24pm dexamethasone 4 mg oral tablet (15 sources) Corticosteroid Start: 08-17-2020 End: 09-01-2020 take 4 mg by mouth once daily Dexamethasone Discontinued 4 MG PO Daily August 16, 2020 11:00pm September 01, 2020 1:42pm docusate sodium 100 mg oral capsule (15 sources) Start: 09-01-2020 End: 02-01-2021 take 1 capsule by mouth once daily Docusate Sodium (Colace) 100 mg Capsule Discontinued 100 MG PO Daily August 31, 2020 11:00pm February 01, 2021 9:51am docusate sodium 50 mg / sennosides, snf 8.6 mg oral tablet (20 sources) Start: 11-29-2019 End: 06-06-2020 take 1 tablet by mouth twice daily Sennosides-Docusat e Sodium (Senexon-S) 8.6-50 mg tablet Discontinued 1 TAB PO Twice daily December 01, 2019 12:23pm June 06, 2020 3:22pm escitalopram 10 mg oral tablet (20 sources) Serotonin Reuptake Inhibitor Start: 12-01-2019 End: 09-01-2020 take 2 tablets by mouth once daily in the morning Escitalopram Oxalate (Lexapro) 10 mg tablet Discontinued 20 MG PO Every morning November 30, 2019 11:00pm September 01, 2020 1:42pm TAKE 2 TABLETS BY MOUTH ONE TIME A DAY Start: 08-04-2019 End: 12-01-2019 take 5 mg by mouth once daily Escitalopram Oxalate Dis continued 5 MG PO Daily August 03, 2019 11:00pm December 01, 2019 12:23pm Dnikmlpibpv-Tinymtlhk-Owcsck er (15 sources) Anticholinergic, Corticosteroid, beta2-Adrenergic Agonist Start: 07-26-2020 End: 08-17-2020 Avscslwelgb-Xvykifekd-Qzhgqu er (Trelegy Ellipta) 100-62.5-25 mcg Blister With Device Discontinued 1 INH INHALATION Daily July 25, 2020 11:00pm August 17, 2020 8:43am Start: 07-26-2020 End: 08-17-2020 Dmidkhilwln-Wodfbtglr-Iyamrj er (Trelegy Ellipta) 100-62.5-25 mcg Blister With Device Discontinued 1 INH INHALATION Daily July 26, 2020 12:00am August 17, 2020 9:43am Food Supplemt, Lactose-Reduc ed (Ensure) Liquid (15 sources) Start: 05-03-2020 End: 07-25-2020 Food Supplemt, Lactose-Reduc ed (Ensure) Liquid Discontinued 1 EACH PO Twice daily May 03, 2020 12:00am July 25, 2020 1:44pm Start: 05-03-2020 End: 07-25-2020 Food Supplemt, Lactose-Reduc ed (Ensure) Liquid Discontinued 1 EACH PO Twice daily May 03, 2020 1:00am July 25, 2020 2:44pm furosemide 20 mg oral tablet (20 sources) Loop Diuretic Start: 12-01-2019 End: 05-03-2020 take 2 tablets by mouth once daily in the morning Furosemide (Lasix) 20 mg tablet Discontinued 40 MG PO Every morning December 30, 2019 8:57am May 03, 2020 11:01am take for ankle swelling Start: 11-25-2019 End: 12-01-2019 take 1 tablet by mouth once daily Furosemide (Lasix) 20 mg Tablet Discontinued 20 MG PO Daily November 24, 2019 11:00pm December 01, 2019 12:54pm take for ankle swelling gabapentin 100 mg oral capsule (15 sources) Anti-epileptic Agent Start: 08-03-2020 End: 02-01-2021 take 200 mg by mouth three times daily Gabapentin Discontinued 200 MG PO Three times daily 180 August 02, 2020 11:00pm February 01, 2021 9:51am hydroCHLOROthiazide 25 mg oral tablet (15 sources) Thiazide Diuretic Start: 09-22-2017 End: 07-30-2019 take 25 mg by mouth once daily Hydrochlorothiazide Discontinued 25 MG PO Daily September 21, 2017 11:00pm July 30, 2019 2:23pm hydrocortisone 5 mg/ml topical cream (15 sources) Corticosteroid Start: 01-20-2020 End: 02-26-2020 Hydrocortisone Discontinued 1 APPLIC TOPICAL Twice daily January 19, 2020 11:00pm February 26, 2020 1:07pm HYDROmorphone hydrochloride 1 mg/ml oral solution (20 sources) Opioid Agonist Start: 07-26-2020 End: 07-26-2020 take 1 mg by mouth every six hours Hydromorphone (Dilaudid) 1 mg/mL liquid Discontinued 1 MG PO Q6H July 26, 2020 10:15am July 26, 2020 11:32am Start: 01-13-2020 End: 07-26-2020 take 5 mg by mouth every six hours Hydromorphone (Dilaudid) 1 mg/mL Liquid Discontinued 5 MG PO Q6H 140 7 January 14, 2020 July 26, 2020 10:15am hydrOXYzine hydrochloride 25 mg oral tablet (15 sources) Antihistamine Start: 09-22-2017 End: 07-30-2019 take 25 mg by mouth every six hours Hydroxyzine Hcl Discontinued 25 MG PO Q6H September 21, 2017 11:00pm July 30, 2019 2:24pm loperamide hydrochloride 2 mg oral tablet (15 sources) Opioid Agonist Start: 05-16-2020 End: 06-06-2020 Loperamide (Imodium A-D) 2 mg Tablet Discontinued 2 MG PO Every 2 hours May 16, 2020 12:00am June 06, 2020 3:23pm after each loose stool until symptoms controlled; do not exceed 16 mg total dose in 24 hrs LORazepam 1 mg oral tablet (15 sources) Benzodiazepine Start: 03-02-2020 End: 02-01-2021 take 1 tablet by mouth every six hours Lorazepam (Ativan) 1 mg Tablet Discontinued 1 MG PO Q6H March 01, 2020 11:00pm February 01, 2021 9:52am prescription given to patient on 03/02/20 for #90 RF x3 losartan potassium 50 mg oral tablet (15 sources) Angiotensin 2 Receptor Joel Start: 09-22-2017 End: 07-30-2019 take 50 mg by mouth twice daily Losartan Discontinued 50 MG PO Twice daily September 21, 2017 11:00pm July 30, 2019 2:24pm Magic Mouth Wash (15 sources) Start: 12-30-2019 End: 07-26-2020 Magic Mouth Wash Discontinued 10 ML PO Every 6 hours December 29, 2019 11:00pm July 26, 2020 3:21pm RX given on 12/29 RF six Start: 12-30-2019 End: 07-26-2020 Magic Mouth Wash Discontinue d 10 ML PO Every 6 hours December 30, 2019 12:00am July 26, 2020 4:21pm RX given on 12/29 RF six megestrol acetate 125 mg/ml oral suspension (15 sources) Progestin Start: 07-26-2020 End: 08-17-2020 take 1 mL by mouth once daily Megestrol Discontinued 5 ML PO Daily July 25, 2020 11:00pm August 17, 2020 8:43am metoprolol tartrate 25 mg oral tablet (17 sources) beta-Adrenergic Joel Start: 09-09-2021 End: 04-10-2022 take 12.5 mg by mouth twice daily Metoprolol Tartrate Discontinued 12.5 MG PO Twice daily September 08, 2021 11:00pm April 10, 2022 2:05pm Start: 09-08-2021 take 0.5 tablet by m outh twice daily Metoprolol Tartrate 25 MG Oral Tablet TAKE 0.5 TABLET Twice daily Quantity: 90 Refills: 3 Ordered: 08-Sep-2021 Lukas Oliveira DO Start : 08-Sep-2021 Active mirtazapine 15 mg oral tablet (20 sources) Start: 06-15-2022 End: 09-04-2022 take 15 mg by mouth once daily at bedtime Mirtazapine Discontinued 15 MG PO Daily at bedtime June 15, 2022 12:00am September 04, 2022 10:23am Start: 09-01-2020 End: 02-01-2021 take 1 tablet by mouth once daily at bedtime Mirtazapine (Remeron) 45 mg Tablet Discontinued 45 MG PO Daily at bedtime August 31, 2020 11:00pm February 01, 2021 9:52am Start: 08-03-2020 End: 08-17-2020 take 15 mg by mouth once daily at bedtime Mirtazapine Discontinued 15 MG PO Daily at bedtime August 02, 2020 11:00pm August 17, 2020 8:43am morphine sulfate 15 mg extended release oral tablet (15 sources) Opioid Agonist Start: 12-16-2019 End: 02-26-2020 take 15 mg by mouth every twelve hours Morphine Discontinued 15 MG PO Q12H December 15, 2019 11:00pm February 26, 2020 1:07pm 24 hr nicotine 0.875 mg/hr transdermal system (20 sources) Cholinergic Nicotinic Agonist Start: 08-03-2020 End: 08-17-2020 Nicotine Discontinued 1 EACH TRANSDERML Daily August 02, 2020 11:00pm August 17, 2020 8:43am Start: 08-04-2019 End: 11-18-2019 Nicotine Discontinued 1 EACH TRANSDERML Daily August 03, 2019 11:00pm November 18, 2019 11:50am 24 hr nitroglycerin 0.4 mg/hr transdermal system (20 sources) Nitrate Vasodilator Start: 09-08-2021 End: 02-27-2022 apply 1 dose transdermal route once daily Nitroglycerin Discontinued 1 PATCH TRANSDERML Daily September 08, 2021 11:00pm February 27, 2022 1:33pm Start: 04-05-2021 Nitroglycerin 0.4 MG Sublingual Tablet Sublingual PLACE 1 TABLET UNDER THE TONGUE EVERY 5 MINUTES FOR UP TO 3 DOSES NEEDED FOR CHEST PAIN.CALL 911 IF PAIN PERSISTS. Quantity: 1 Refills: 0 Ordered: 05-Apr-2021 DO Start : 05-Apr-2021 Active Start: 04-05-2021 End: 02-27-2022 Nitroglycerin (Nitrostat) 0. 3 mg Tablet, Sublingual Discontinued 0.3 MG SUBLINGUAL every 5 to 15 minutes April 05, 2021 12:00am February 27, 2022 1:34pm do not exceed 3 doses per episode nitroglycerin (N itrostat) 0.4 MG SL tablet 1 (one) time each day at the same time. 0 Active nystatin [id number] unt/ml oral suspension (15 sources) Polyene Antifungal Start: 07-26-2020 End: 08-17-2020 Nystatin Discontinued 4 ML MUCOUS MEM Four times daily July 25, 2020 11:00pm August 17, 2020 8:43am ondansetron 4 mg oral tablet (20 sources) Serotonin-3 Receptor Antagonist Start: 06-05-2022 End: 09-04-2022 take 4 mg by mouth once daily Ondansetron Hcl Discontinued 4 MG PO Daily June 15, 2022 12:00am September 04, 2022 10:23am Start: 07-26-2020 End: 08-17-2020 Ondansetron Discontinued 8 M G PO every 6 to 8 hours July 26, 2020 10:15am August 17, 2020 8:43am Start: 05-16-2020 End: 07-26-2020 Ondansetron Discontinued 4 M G PO every 6 to 8 hours May 16, 2020 12:00am July 26, 2020 10:15am Start: 11-18-2019 End: 11-18-2019 take 1 tablet by mouth every eight hours Ondansetron Hcl (Zofran) 8 mg Tablet Discontinued 8 MG PO Q8H November 17, 2019 11:00pm November 18, 2019 12:47pm OXcarbazepine 600 mg oral tablet (15 sources) Anti-epileptic Agent Start: 09-01-2020 End: 02-01-2021 take 1 tablet by mouth twice daily Oxcarbazepine (Trileptal) 600 mg Tablet Discontinued 600 MG PO Twice daily August 31, 2020 11:00pm February 01, 2021 9:52am oxyCODONE hydrochloride 15 mg oral tablet (20 sources) Opioid Agonist Start: 08-17-2020 End: 02-01-2021 Oxycodone (Roxicodone) 15 mg tablet Discontinued 20 MG PO Q8H August 17, 2020 8:42am February 01, 2021 9:52am Start: 08-03-2020 End: 08-17-2020 Oxycodone (Roxicodone) 15 mg tablet Discontinued 10 MG PO Q6H 0 August 03, 2020 10:15am August 17, 2020 8:44am Start: 06-15-2020 End: 07-25-2020 take 10 mg by mouth every six hours Oxycodone Discontinued 10 MG PO Q6H June 15, 2020 July 25, 2020 1:41pm Start: 02-26-2020 End: 08-03-2020 take 1 tablet by mouth every six hours Oxycodone (Roxicodone) 15 mg tablet Discontinued 15 MG PO Q6H February 25, 2020 11:00pm August 03, 2020 10:18am Start: 01-15-2020 End: 02-26-2020 take 15 mg by mouth every four hours Oxycodone Discontinued 15 MG PO Q4H January 14, 2020 11:00pm February 26, 2020 2:34pm Start: 11-29-2019 End: 12-04-2019 take 1 tablet by mouth every six hours Oxycodone (Roxicodone) 5 mg tablet Discontinued 5 MG PO Every 6 hours December 01, 2019 12:23pm December 04, 2019 1:33pm Further refills, if needed, per Palliative or PCP polyethylene glycol 3350 90653 mg powder for oral solution (15 sources) Osmotic Laxative Start: 08-17-2020 End: 09-01-2020 Polyethylene Glycol 3350 (Miralax) 17 gram/dose Powder Discontinued 17 GM PO Daily August 16, 2020 11:00pm September 01, 2020 1:44pm potassium chloride 20 meq powder for oral solution (20 sources) Start: 01-24-2020 End: 02-10-2020 take 20 mEq by mouth once daily Potassium Chloride Discontinued 20 MEQ PO Daily January 23, 2020 11:00pm February 10, 2020 12:07pm Start: 11-29-2019 End: 02-26-2020 take 10 mEq by mouth once daily Potassium Chloride Discontinued 10 MEQ PO Daily November 28, 2019 11:00pm February 26, 2020 1:07pm Take with Lasix. predniSONE 50 mg oral tablet (20 sources) Start: 09-01-2020 End: 02-01-2021 take 60 mg by mouth once daily Prednisone Discontinued 60 MG PO Daily August 31, 2020 11:00pm February 01, 2021 9:52am Start: 12-23-2019 End: 02-10-2020 take 50 mg by mouth once daily Prednisone Discontinued 50 MG PO Daily 02 20December 25, 2019 12:33pm February 10, 2020 12:06pm take 50 mg a day x 10 days prochlorperazine 10 mg oral tablet (15 sources) Phenothiazine Start: 11-20-2019 End: 12-01-2019 take 1 tablet by mouth every six hours for nausea Prochlorperazine Maleate (Compazine) 10 mg Tablet Discontinued 10 MG PO Q6H November 19, 2019 11:00pm December 01, 2019 12:54pm take for nausea promethazine hydrochloride 25 mg oral tablet (20 sources) Phenothiazine Start: 06-06-2020 End: 08-17-2020 take 25 mg by mouth three times daily Promethazine Discontinued 25 MG PO Three times daily June 06, 2020 3:25pm August 17, 2020 8:43am Start: 05-16-2020 End: 06-06-2020 take 25 mg by mouth every six hours Promethazine Discontinued 25 MG PO Q6H May 16, 2020 12:00am June 06, 2020 3:25pm Sennosides (15 sources) Start: 07-26-2020 End: 07-26-2020 take 8.6 mg by mouth twice daily Sennosides Discontinued 8.6 MG PO Twice daily July 25, 2020 11:00pm July 26, 2020 3:21pm Start: 07-26-2020 End: 07-26-2020 take 8.6 mg by mouth twice daily Sennosides Discontinued 8.6 MG PO Twice daily July 26, 2020 12:00am July 26, 2020 4:21pm Sennosides (Senna Lax) 8.6 mg Tablet (15 sources) Start: 08-03-2020 End: 08-17-2020 take 2 tablets by mouth twice daily Sennosides (Senna Lax) 8.6 mg Tablet Discontinued 2 TAB PO Twice daily 120 30 August 02, 2020 11:00pm August 17, 2020 8:43am Start: 08-03-2020 End: 08-17-2020 take 2 tablets by mouth twice daily Sennosides (Senna Lax) 8.6 mg Tablet Discontinued 2 TAB PO Twice daily 120 30 August 03, 2020 12:00am August 17, 2020 9:43am Sucralfate (Carafate) 100 mg/mL Suspension (15 sources) Start: 01-21-2020 End: 07-26-2020 take 1 mL by mouth at bedtime Sucralfate (Carafate) 100 mg/mL Suspension Discontinued 10 ML PO before meals and at bedtime January 20, 2020 11:00pm July 26, 2020 3:21pm 30 MIN BEFORE MEALS Start: 01-21-2020 End: 07-26-2020 take 1 mL by mouth at bedtime Sucralfate (Carafate) 10 0 mg/mL Suspension Discontinued 10 ML PO before meals and at bedtime January 21, 2020 12:00am July 26, 2020 4:21pm 30 MIN BEFORE MEALS Triamcinolone (3 sources) Corticosteroid Start: 01-07-2020 Kenalog -40 mg Dec, 40 mg zolpidem tartrate 5 mg oral tablet (18 sources) gamma-Aminobutyric Acid-ergic Agonist Start: 08-17-2020 End: 09-01-2020 take 5 mg by mouth once daily at bedtime Zolpidem Discontinued 5 MG PO Daily at bedtime August 16, 2020 11:00pm September 01, 2020 1:45pm take 2 tablets by mouth at bedti me Zolpidem Tartrate 5 MG (Schedule IV Drug) TAKE 2 TABLETS BY MOUTH AT BEDTIME FOR DIFFICULTY SLEEPING Oral for 21 Not-Taking Problems Active Problems Problem Classification Problem Date Documented Da te Episodic/Chronic Abdominal pain (15 sources) Abdominal pain; Translations: [Unspecified abdominal pain] 05-16-2020 Episodic Acute myocardial infarction (20 sources) Myocardial infarction; Translations: [Non-ST elevation (NSTEMI) myocardial infarction] Onset: 0 02-25-2020 Chronic Administrative/social admission (15 sources) Patient encounter status; Translations: [Other specified counseling] 12-03-2019 Episodic Alcohol-related disorders (20 sources) Alcohol intoxication; Translations: [Alcohol dependence, uncomplicated] Onset: 0 09-22-2017 Chronic Anxiety disorders (20 sources) Anxiety; Translations: [Anxiety disorder, unspecified] Onset: 0 11-18-2019 Chronic Cancer of bronchus; lung (20 sources) Malignant tumor of lung; Translations: [Malignant neoplasm of bronchus and lung, unspecified] Onset: 0 Resolved: 2 Chronic Cancer of bronchus; lung (20 sources) History of malignant neoplasm of thoracic cavity structure; Translations: [Personal history of other malignant neoplasm of bronchus and lung] Onset: 1 06-06-2020 Episodic Cardiac dysrhythmias (8 sources) Tachycardia; Translations: [Tachycardia, unspecified] 06-16-2022 Episodic Chronic obstructive pulmonary disease and bronchiectasis (20 sources) Chronic obstructive lung disease; Translations: [Chronic obstructive pulmonary disease, unspecified] Onset: 0 11-28-2019 Chronic Complications of surgical procedures or medical care (20 sources) Anemia due to antineoplastic chemotherapy; Translations: [Anemia due to antineoplastic chemotherapy] Onset: 3 12-16-2019 Chronic Coronary atherosclerosis and other heart disease (2 sources) Angina, class IV; Translations: [Other and unspecified angina pectoris] Chronic Deficiency and other anemia (15 sources) Anemia; Translations: [Anemia, unspecified] 12-03-2019 Episodic Disorders of teeth and jaw (4 sources) Gingivitis; Translations: [Chronic gingivitis, plaque induced] Onset: 3 09-25-2022 Chronic E Codes: Adverse effects of medical drugs (15 sources) Angiotensin-converting -enzyme inhibitor adverse reaction; Translations: [Adverse effect of angiotensin-converting -enzyme inhibitors, initial encounter] 09-22-2017 Episodic Esophageal disorders (4 sources) Gastroesophageal reflux disease; Translations: [Gastro-esophageal reflux disease without esophagitis] Onset: 3 09-25-2022 Chronic Essential hypertension (20 sources) Hypertensive disorder; Translations: [Essential (primary) hypertension] Onset: 8 02-26-2020 Chronic Fluid and electrolyte disorders (20 sources) Hyponatremia; Translations: [Hypo-osmolality and hyponatremia] 12-01-2019 Episodic Genitourinary symptoms and ill-defined conditions (20 sources) Pyuria; Translations: [Pyuria] 08-04-2020 Episodic Lymphadenitis (15 sources) Lymphadenopathy; Translations: [Generalized enlarged lymph nodes] 12-01-2019 Episodic Malignant neoplasm without specification of site (4 sources) Small cell carcinoma; 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, unspecified] Onset: 3 09-25-2022 Chronic Mood disorders (20 sources) Major depressive disorder, single episode, unspecified; Translations: [Depression] Onset: 8 Resolved: 2 Chronic Nausea and vomiting (20 sources) Nausea; Translations: [Nausea] 06-06-2020 Episodic Nonspecific chest pain (20 sources) Chest pain; Translations: [Chest pain, unspecified] Onset: 3 11-27-2019 Episodic Nutritional deficiencies (4 sources) Vitamin D deficiency; Translations: [Vitamin D deficiency, unspecified] Onset: 3 09-25-2022 Chronic Osteoarthritis (4 sources) Osteoarthritis; Translations: [Unspecified osteoarthritis, unspecified site] Onset: 3 09-25-2022 Chronic Other aftercare (1 source) Other tetryl boiling tub operator (current) drug therapy; Translations: [OTH BATTERY VENT PLUG INSERTER CURRENT DRUG THERAPY] Onset: 3 Episodic Other aftercare (1 source) 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; Translations: [BATTERY VENT PLUG INSERTER CURRENT USE OF ASPIRIN] Onset: 3 Episodic Other gastrointestinal disorders (15 sources) Diarrhea; Translations: [Diarrhea, unspecified] 05-16-2020 Episodic Other gastrointestinal disorders (15 sources) Constipation; Translations: [Constipation, unspecified] 09-02-2020 Episodic Other gastrointestinal disorders (14 sources) Diarrhea, unspecified; Translations: [Diarrhea] 02-27-2022 Episodic Other lower respiratory disease (3 sources) Lung field abnormal; Translations: [Other nonspecific abnormal finding of lung field] Episodic Other lower respiratory disease (8 sources) Shortness of breath; Translations: [Shortness of breath] Onset: 2 Episodic Other lower respiratory disease (6 sources) Dyspnea; Translations: [Shortness of breath] 06-22-2022 Episodic Other lower respiratory disease (4 sources) Pleurodynia; Translations: [PLEURODYNIA] Onset: 3 Episodic Other male genital disorders (4 sources) Secondary erectile dysfunction; Translations: [Erectile dysfunction due to diseases classified elsewhere] Onset: 3 09-25-2022 Chronic Other nervous system disorders (3 sources) Chronic pain; Translations: [Other chronic pain] Chronic Other nervous system disorders (20 sources) Pain due to neoplastic disease; Translations: [Neoplasm related pain (acute) (chronic)] 09-02-2020 Chronic Other nervous system disorders (3 sources) Intercostal neuralgia; 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] Chronic Other nervous system disorders (1 source) Other chronic pain Onset: 2 Resolved: 2 Chronic Other nervous system disorders (14 sources) Neoplasm related pain (acute) (chronic); Translations: [Neoplasm related pain (acute) (chronic)] 02-27-2022 Chronic Other nervous system disorders (4 sources) Peripheral nerve disease ; Translations: [Unspecified mononeuropathy of right upper limb] Onset: 3 09-25-2022 Chronic Other nervous system disorders (4 sources) Thoracic outlet syndrome; Translations: [Brachial plexus disorders] Onset: 3 09-25-2022 Chronic Other nervous system disorders (3 sources) Paresthesia; Translations: [Paresthesia of skin] Episodic Other non-traumatic joint disorders (15 sources) Joint pain; Translations: [Pain in unspecified joint] 12-23-2019 Episodic Other non-traumatic joint disorders (14 sources) Pain in unspecified joint; Translations: [Pain in joint, site unspecified] 02-27-2022 Episodic Other nutritional; endocrine; and metabolic disorders (4 sources) Hypoalbuminemia; Translations: [Other disorders of plasma-protein metabolism, not elsewhere classified] Onset: 3 09-25-2022 Chronic Other nutritional; endocrine; and metabolic disorders (6 sources) Weight loss; Translations: [Abnormal weight loss] 09-04-2022 Episodic Other nutritional; endocrine; and metabolic disorders (6 sources) Abnormal weight loss; Translations: [Loss of weight] 09-19-2022 Episodic Pancreatic disorders (not diabetes) (5 sources) Pancreatitis; Translations: [Acute pancreatitis without necrosis or infection, unspecified] Onset: 3 09-25-2022 Episodic Pleurisy; pneumothorax; pulmonary collapse (20 sources) Pneumothorax; Translations: [Pneumothorax, unspecified] Onset: 3 11-27-2019 Episodic Residual codes; unclassified (4 sources) Finding of region of thorax; Translations: [Presence of other specified functional implants] 10-26-2022 Chronic Residual codes; unclassified (4 sources) Sleep apnea; Translations: [Sleep apnea, unspecified] Onset: 3 09-25-2022 Chronic Residual codes; unclassified (2 sources) Body mass index 20-24 - normal; Translations: [Body Mass Index between 19-24, adult] Episodic Residual codes; unclassified (15 sources) Amnesia; Translations: [Other amnesia] 07-25-2020 Episodic Residual codes; unclassified (15 sources) Edema; Translations: [Edema, unspecified] 12-03-2019 Episodic Residual codes; unclassified (15 sources) Altered mental status; Translations: [Altered mental status, unspecified] 08-04-2020 Episodic Residual codes; unclassified (14 sources) Edema, unspecified; Translations: [Edema] 02-27-2022 Episodic Residual codes; unclassified (1 source) Pain, unspecified; Translations: [Pain, unspecified] Onset: Episodic Screening and history of mental health and substance abuse codes (3 sources) Ex-smoker; Translations: [Personal history of tobacco use] Onset: 3 Episodic Comment on above: quit 2020 1ppd; Spondylosis; intervertebral disc disorders; other back problems (20 sources) Neck pain; Translations: [Cervicalgia] 12-09-2019 Episodic Substance-related disorders (7 sources) Tobacco user; Translations: [Nicotine dependence, cigarettes, uncomplicated] Onset: 3 09-25-2022 Chronic Suicide and intentional self-inflicted injury (15 sources) Suicidal thoughts; Translations: [Suicidal ideations] 11-18-2019 Episodic Unclassified (1 source) Unknown / UNK(Unknown) Onset: 8 Unclassified (1 source) CONTACT W/AND (SUSP) EXPOS COVID-19; Translations: [CONTACT W/AND (SUSP) EXPOS COVID-19] Onset: 2 Unclassified (1 source) Encounter for change or removal of drains; Translations: [Encounter for change or removal of drains] Onset: 3 Unclassified (1 source) Other forms of dyspnea; Translations: [Other forms of dyspnea] Onset: 3 Past or Other Problems Problem Classification Problem Date Documented Date Episodic/Chronic Mood disorders (5 sources) Mood disorders; Translations: [DEPRESSION UNSPECIFIED] Onset: 08-29-2022 04-12-2023 Other aftercare (1 source) Encounter for palliative care Onset: 09-13-2021 Resolved: 09-13-2021 Episodic Other connective tissue disease (4 sources) Mass of soft tissue of right upper limb; Translations: [Other specified soft tissue disorders] Onset: 09-25-2022 09-25-2022 Episodic Other connective tissue disease (4 sources) Disorder of soft tissue; Translations: [Soft tissue disorder, unspecified] Onset: 10-21-2019 10-19-2022 Episodic Other liver diseases (4 sources) Elevated liver enzymes level; Translations: [Abnormal levels of other serum enzymes] Onset: 06-18-2018 10-19-2022 Episodic Other nervous system disorders (1 source) Other acute postprocedural pain; Translations: [OTHER ACUTE POSTPROCEDURAL PAIN] Onset: 06-20-2022 Episodic Other nervous system disorders (4 sources) Allodynia; Translations: [Other disturbances of skin sensation] Onset: 09-25-2022 09-25-2022 Episodic Other nutritional; endocrine; and metabolic disorders (8 sources) Loss of appetite; Translations: [Anorexia] Onset: 05-29-2018 09-25-2022 Episodic Other nutritional; endocrine; and metabolic disorders (4 sources) Decrease in appetite; Translations: [Anorexia] Onset: 09-25-2022 09-25-2022 Episodic Other screening for suspected conditions (not mental disorders or infectious disease) (4 sources) Liver function tests abnormal; Translations: [Abnormal results of liver function studies] Onset: 09-25-2022 09-25-2022 Episodic Residual codes; unclassified (4 sources) Insomnia; Translations: [Insomnia, unspecified] Onset: 09-25-2022 09-25-2022 Episodic Results Test Name Value Interpretation Reference Range Facility Alanine aminotransferase [En zymatic activity/volume] in Serum or PlasmaOrdered By: Estela Varma on 06-25-2023 ALT [Catalytic activity/Vol] 14 U/L Normal 7-52 [facility] Comment on above: Performed By: #### T 4F, CMP, [id number], YUSUF, CEA, FE and TIBC, LIPASE, MARILU, CBC, TSH3 ####[facility] [id number] [place] [address] [place]#### METH ####[facility] , Albumin [Mass/volume] in Ser um or Plasma by Bromocresol green (BCG) dye binding methoOrdered By: Estela Varma on 06-25-2023 Albumin BCG dye [Mass/Vol] 3.9 g/dL 3.5-5.7 [facility] Alkaline phosphatase [Enzyma tic activity/volume] in Serum or PlasmaOrdered By: Estela Varma on 06-25-2023 ALP [Catalytic activity/Vol] 126 U/L High 34-104 [facility] Comment on above: Performed By: #### T 4F, CMP, [id number], YUSUF, CEA, FE and TIBC, LIPASE, MARILU, CBC, TSH3 ####[facility] [id number] [place] [address] [place]#### METH ####[facility] , Amylase [Enzymatic activity/ volume] in Serum or PlasmaOrdered By: Estela Varma on 06-25-2023 Amylase [Catalytic activity/Vol] 52 U/L Normal 29-103 [facility] Comment on above: Performed By: #### T 4F, CMP, [id number], YUSUF, CEA, FE and TIBC, LIPASE, MARILU, CBC, TSH3 ####[place] [id number] [address]#### METH ####[facility] , Aspartate aminotransferase [ Enzymatic activity/volume] in Serum or PlasmaOrdered By: Estela Varma on 06-25-2023 AST [Catalytic activity/Vol] 30 U/L Normal 13-39 [facility] Comment on above: Performed By: #### T 4F, CMP, [id number], YUSUF, CEA, FE and TIBC, LIPASE, MARILU, CBC, TSH3 ####[place] [id number] [address]#### METH ####[facility] , Automated basophil %Ordered By: Estela Varma on 06-25-2023 Basophils/100 WBC (Bld) 1.3 % Normal . [facility] Comment on above: Performed By: #### T 4F, CMP, [id number], YUSUF, CEA, FE and TIBC, LIPASE, MARILU, CBC, TSH3 ####[place] [id number] [place] [address] [place]#### METH ####[facility] , Automated basophil countOrde red By: Estela Varma on 06-25-2023 Basophils (Bld) [#/Vol] 0.1 10*3/uL Normal 0.0-0.2 [facility] Comment on above: Result Comment: PERF ORMED BY: [facility] [address] [place] [address] PATHOLOGIST SPOUT POSITIONER CATY DELCID M.D. Performed By: #### T 4F, CMP, [id number], YUSUF, CEA, FE and TIBC, LIPASE, MARILU, CBC, TSH3 ####[facility] [place] [address] [place]#### METH ####[facility] , Automated blood monocyte cou ntOrdered By: Estela Varma on 06-25-2023 Monocytes (Bld) [#/Vol] 0.7 10*3/uL Normal 0.0-0.8 [facility] Comment on above: Performed By: #### T 4F, CMP, [id number], YUSUF, CEA, FE and TIBC, LIPASE, MARILU, CBC, TSH3 ####[facility]#### METH ####[facility] , Automated eosinophil %Ordere d By: Estela Varma on 06-25-2023 Eosinophils/100 WBC (Bld) 2.5 % Normal . [facility] Comment on above: Performed By: #### T 4F, CMP, [id number], YUSUF, CEA, FE and TIBC, LIPASE, MARILU, CBC, TSH3 ####[facility]#### METH ####[facility] , Automated eosinophil countOr dered By: Estela Varma on 06-25-2023 Eosinophils (Bld) [#/Vol] 0.2 10*3/uL Normal 0.0-0.45 [facility] Comment on above: Performed By: #### T 4F, CMP, [id number], YUSUF, CEA, FE and TIBC, LIPASE, MARILU, CBC, TSH3 ####[facility] [place] [address] [place]#### METH ####[facility] , Automated monocyte %Ordered By: Estela Varma on 06-25-2023 Monocytes/100 WBC (Bld) 8.7 % Normal . [facility] Comment on above: Performed By: #### T 4F, CMP, [id number], YUSUF, CEA, FE and TIBC, LIPASE, MARILU, CBC, TSH3 ####[facility] [place] [address] [place]#### METH ####[facility] , Automated neutrophil %Ordere d By: Estela Varma on 06-25-2023 Neutrophils/100 WBC (Bld) 78.2 % Normal . [facility] Comment on above: Performed By: #### T 4F, CMP, [id number], YUSUF, CEA, FE and TIBC, LIPASE, MARILU, CBC, TSH3 ####[facility]#### METH ####[facility] , Bilirubin.total [Mass/volume ] in Serum or PlasmaOrdered By: Estela Varma on 06-25-2023 Bilirubin [Mass/Vol] 1.0 mg/dL Normal 0.3-1.0 [facility] Comment on above: Performed By: #### T 4F, CMP, [id number], YUSUF, CEA, FE and TIBC, LIPASE, MARILU, CBC, TSH3 ####[facility] [place] [address] [place]#### METH ####[facility] , CARCINOEMBRYONIC ANTIGENon 0 06-25-2023 Interpretation and review of laboratory results Abnormal [facility] CBC W Auto Differential pane l (Bld)on 06-25-2023 Basophils (Bld) [#/Vol] 0.1 10*3/uL 0.0 - 0.2 10*3/uL [facility] Basophils/100 WBC Manual cnt (Syn fld) 1.3 % . [facility] Eosinophils (Bld) [#/Vol] 0.2 10*3/uL 0.0 - 0.45 10*3/uL [facility] Eosinophils/100 WBC Manual cnt (Syn fld) 2.5 % . [facility] Erythrocyte distribution width (RBC) [Ratio] 15.5 % High 12.0 - 14.8 % [facility] Hematocrit (Bld) [Volume fraction] 40.7 % 38.8 - 50.0 % [facility] Hemoglobin (Bld) [Mass/Vol] 13.7 g/dL 13.0 - 17.0 g/dL [facility] Interpretation and review of laboratory results Abnormal [facility] Lymphocytes (Bld) [#/Vol] 0.8 10*3/uL Low 1.00 - 4.8 10*3/uL [facility] Lymphocytes/100 WBC Manual cnt (Syn fld) 9.3 % . [facility] MCH (RBC) [Entitic mass] 32.9 pg 27.5 - 35.[address] [facility] MCHC (RBC) [Mass/Vol] 33.7 g/dL 32.5 - 35.6 g/dL [facility] MCV (RBC) [Entitic vol] 97.6 fL 83.5 - [address] [facility] Monocytes (Bld) [#/Vol] 0.7 10*3/uL 0.0 - 0.8 10*3/uL [facility] Monocytes+Macrophages /100 WBC Manual cnt (Syn fld) 8.7 % . [facility] Neutrophils (Bld) [#/Vol] 6.5 10*3/uL 1.8 - 7.7 10*3/uL [facility] Neutrophils/100 WBC Manual cnt (Syn fld) 78.2 % . [facility] NRBC 0.2 /100{WBC} 0 - 0.5 /100{WBC} [facility] Platelet mean volume (Bld) [Entitic vol] 7.4 fL 6.6 - 10.[address] [facility] Platelets (Bld) [#/Vol] 196 10*3/uL 150 - 450 10*3/uL [facility] RBC LM.HPF (Urine sed) [#/Area] 4.17 /[HPF] 3.90 - 5.60 [facility] WBC (Bld) [#/Vol] 8.4 10*3/uL 4.1 - 10.5 10*3/uL [facility] WBC LM.HPF (Urine sed) [#/Area] 8.4 10*3/uL 4.1 - 10.5 10*3/uL [facility] Calcium [Mass/volume] in Ser um or PlasmaOrdered By: Estela Varma on 06-25-2023 Calcium [Mass/Vol] 8.7 mg/dL Normal 8.6-10.3 [facility] Comment on above: Performed By: #### T 4F, CMP, [id number], YUSUF, CEA, FE and TIBC, LIPASE, MARILU, CBC, TSH3 ####[facility]#### METH ####[facility] , Capillary blood glucose ledy urement by glucometer (mass/volume)Ordered By: Estela Varma on 06-25-2023 Glucose [Mass/Vol] 97 mg/dL Normal [facility] Comment on above: Random Glucose Refer ence Range is dependent on time and content of last meal. Glucose of more than 200 mg/dL in a nonstressed, ambulatory subject supports the diagnosis of Diabetes Mellitus. Result Comment: [place] om Glucose Reference Range is dependent on time and content of last meal. Glucose of more than 200 mg/dL in a nonstressed, ambulatory subject supports the diagnosis of Diabetes Mellitus. PERFORMED BY: [facility] [address] [place] [address] PATHOLOGIST SPOUT POSITIONER CATY DELCID M.D. Performed By: #### G LULS ####Point of Care testing, Carbon dioxide, total [Moles /volume] in Serum or PlasmaOrdered By: Estela Varma on 06-25-2023 CO2 [Moles/Vol] 23.2 mmol/L Normal 21.0-31.0 [facility] Comment on above: Performed By: #### T 4F, CMP, [id number], YUSUF, CEA, FE and TIBC, LIPASE, MARILU, CBC, TSH3 ####[place] [id number] [address]#### METH ####[facility] , Chloride [Moles/volume] in S coral or PlasmaOrdered By: Estela Varma on 06-25-2023 Chloride [Moles/Vol] 96 mmol/L Low 98-107 [facility] Comment on above: Performed By: #### T 4F, CMP, [id number], YUSUF, CEA, FE and TIBC, LIPASE, MARILU, CBC, TSH3 ####[address]#### METH ####[facility] , Complete Blood Count Auto Di ffon 06-25-2023 Mean Corpuscular HGB Conc 33.7 g/dL Normal 32.5-35.6 [facility] Comment on above: Performed By: #### T 4F, CMP, [id number], YUSUF, CEA, FE and TIBC, LIPASE, MARILU, CBC, TSH3 ####[address]#### METH ####[facility] , NRBC% 0.2 /100{WBC} Normal 0-0.5 [facility] Comment on above: Performed By: #### T 4F, CMP, [id number], YUSUF, CEA, FE and TIBC, LIPASE, MARILU, CBC, TSH3 ####[address]#### METH ####[facility] , Comprehensive Metabolic Pane nicolas 06-25-2023 Albumin [Mass/Vol] 3.9 g/dL Normal 3.5-5.7 [facility] Comment on above: Performed By: #### T 4F, CMP, [id number], YUSUF, CEA, FE and TIBC, LIPASE, MARILU, CBC, TSH3 ####[place] [address] [place]#### METH ####[facility] , Creatinine Clr Calc Pharmacy 108.93 Normal [facility] Comment on above: Performed By: #### T 4F, CMP, [id number], YUSUF, CEA, FE and TIBC, LIPASE, MARILU, CBC, TSH3 ####[place] [address] [place]#### METH ####[facility] , GFR/1.73 sq M.predicted MDRD (S/P/Bld) [Vol rate/Area] mL/min/{1.73_m2} Normal [facility] Comment on above: Performed By: #### T 4F, CMP, [id number], YUSUF, CEA, FE and TIBC, LIPASE, MARILU, CBC, TSH3 ####[address]#### METH ####[facility] , Creatinine [Mass/volume] in Serum or PlasmaOrdered By: Estela Varma on 06-25-2023 Creatinine [Mass/Vol] 0.70 mg/dL Normal 0.70-1.30 [facility] Comment on above: Performed By: #### T 4F, CMP, [id number], YUSUF, CEA, FE and TIBC, LIPASE, MARILU, CBC, TSH3 ####[address]#### METH ####[facility] , Erythrocyte distribution wid th [Ratio] by Automated countOrdered By: Estela Varma on 06-25-2023 Erythrocyte distribution width (RBC) [Ratio] 15.5 % High 12.0-14.8 [facility] Comment on above: Performed By: #### T 4F, CMP, [id number], YUSUF, CEA, FE and TIBC, LIPASE, MARILU, CBC, TSH3 ####[place] [address] [place]#### METH ####[facility] , Erythrocytes [#/volume] in B lood by Automated countOrdered By: Estela Varma on 06-25-2023 RBC (Bld) [#/Vol] 4.17 10*6/uL Normal 3.90-5.60 [facility] Comment on above: Performed By: #### T 4F, CMP, [id number], YUSUF, CEA, FE and TIBC, LIPASE, MARILU, CBC, TSH3 ####[place] [address] [place]#### METH ####[facility] , Ferritin [Mass/volume] in Se rum or PlasmaOrdered By: Estela Varma on 06-25-2023 Ferritin [Mass/Vol] 207.7 ng/mL Normal 23.9-336.2 [facility] Comment on above: Performed By: #### T 4F, CMP, [id number], YUSUF, CEA, FE and TIBC, LIPASE, MARILU, CBC, TSH3 ####[facility] [id number] [place] [id number] [facility]#### METH ####[facility] , Folate [Mass/volume] in Seru m or PlasmaOrdered By: Estela Varma on 06-25-2023 Folate [Mass/Vol] 9.6 ng/mL >5.9 [facility] Comment on above: Folate reference ran ge: >5.9 ng/mlThe WHO technical consultation on folate and vitamin [id number] has determined that folate concentrations lessthan 4 ng/ml are considered deficient. GLUCOSE POCT GLUCOMETERSon 0 06-25-2023 Glucose [Mass/Vol] 97 mg/dL [facility] Comment on above: Random Glucose Refer ence Range is dependent on time and content of last meal. Glucose of more than 200 mg/dL in a nonstressed, ambulatory subject supports the diagnosis of Diabetes Mellitus. [facility] Glucose [Mass/volume] in Ser um or PlasmaOrdered By: Estela Varma on 06-25-2023 Glucose [Mass/Vol] 89 mg/dL Normal 70-100 [facility] Comment on above: ADA recommended refe rence rangeRandom Glucose Reference Range is dependent on time and content of last meal. Glucose of more than 200 mg/dL in a nonstressed, ambulatory subject supports the diagnosis of Diabetes Mellitus. Result Comment: [place] om Glucose Reference Range is dependent on time and content of last meal. Glucose of more than 200 mg/dL in a nonstressed, ambulatory subject supports the diagnosis of Diabetes Mellitus. ADA recommended reference range Performed By: #### T 4F, CMP, [id number], YUSUF, CEA, FE and TIBC, LIPASE, MARILU, CBC, TSH3 ####[address]#### METH ####[facility] , Hematocrit [Volume Fraction] of Blood by Automated countOrdered By: Estela Varma on 06-25-2023 Hematocrit (Bld) [Volume fraction] 40.7 % Normal 38.8-50.0 [facility] Comment on above: Performed By: #### T 4F, CMP, [id number], YUSUF, CEA, FE and TIBC, LIPASE, MARILU, CBC, TSH3 ####[address]#### METH ####[facility] , Hemoglobin [Mass/volume] in BloodOrdered By: Estela Varma on 06-25-2023 Hemoglobin (Bld) [Mass/Vol] 13.7 g/dL Normal 13.0-17.0 [facility] Comment on above: Performed By: #### T 4F, CMP, [id number], YUSUF, CEA, FE and TIBC, LIPASE, MARILU, CBC, TSH3 ####[address]#### METH ####[facility] , Iron [Mass/volume] in Serum or PlasmaOrdered By: Estela Varma on 06-25-2023 Iron [Mass/Vol] 159 ug/dL Normal 50-212 [facility] Comment on above: Performed By: #### T 4F, CMP, [id number], YUSUF, CEA, FE and TIBC, LIPASE, MARILU, CBC, TSH3 ####[place] [address] [place]#### METH ####[facility] , Iron and TIBC Profileon 06-14 % Iron Saturation 65.7 % High 20-50 [facility] Comment on above: Performed By: #### T 4F, CMP, [id number], YUSUF, CEA, FE and TIBC, LIPASE, MARILU, CBC, TSH3 ####[address] [place] [address] [place]#### METH ####[facility] , Total Iron Binding Capacity 242 ug/dL Low 255-450 [facility] Comment on above: Performed By: #### T 4F, CMP, [id number], YUSUF, CEA, FE and TIBC, LIPASE, MARILU, CBC, TSH3 ####[place] [address] [place] [address] [place]#### METH ####[facility] , Iron binding capacity [Mass/ volume] in Serum or PlasmaOrdered By: Estela Varma on 06-25-2023 Iron binding capacity [Mass/Vol] 242 ug/dL 255-450 [facility] Iron saturation [Mass Fracti on] in Serum or PlasmaOrdered By: Estela Varma on 06-25-2023 Iron saturation [Mass fraction] 65.7 % 20-50 [facility] Leukocytes [#/volume] correc chris for nucleated erythrocytes in Blood by Automated counOrdered By: Estela Varma on 06-25-2023 WBC corrected for nucl RBC Auto (Bld) [#/Vol] 8.4 10*3/uL 4.1-10.5 [facility] Leukocytes [#/volume] in Blo od by Automated countOrdered By: Estela Varma on 06-25-2023 WBC (Bld) [#/Vol] 8.4 10*3/uL Normal 4.1-10.5 [facility] Comment on above: Performed By: #### T 4F, CMP, [id number], YUSUF, CEA, FE and TIBC, LIPASE, MARILU, CBC, TSH3 ####[place] [address] [place] [address] [place]#### METH ####[facility] , Lipase [Enzymatic activity/v olume] in Serum or PlasmaOrdered By: Estela Varma on 06-25-2023 Lipase [Catalytic activity/Vol] 36.0 U/L Normal 11.0-82.0 [facility] Comment on above: Performed By: #### T 4F, CMP, [id number], YUSUF, CEA, FE and TIBC, LIPASE, MARILU, CBC, TSH3 ####[address]#### METH ####[facility] , Lymphocytes [#/volume] in Bl ood by Automated countOrdered By: Estela Varma on 06-25-2023 Lymphocytes (Bld) [#/Vol] 0.8 10*3/uL Low 1.00-4.8 [facility] Comment on above: Performed By: #### T 4F, CMP, [id number], YUSUF, CEA, FE and TIBC, LIPASE, MARILU, CBC, TSH3 ####[address]#### METH ####[facility] , Lymphocytes/100 leukocytes i n Blood by Automated countOrdered By: Estela Varma on 06-25-2023 Lymphocytes/100 WBC (Bld) 9.3 % Normal . [facility] Comment on above: Performed By: #### T 4F, CMP, [id number], YUSUF, CEA, FE and TIBC, LIPASE, MARILU, CBC, TSH3 ####[address]#### METH ####[facility] , MCH [Entitic mass] by Automa chris countOrdered By: Estela Varma on 06-25-2023 MCH (RBC) [Entitic mass] 32.9 pg Normal 27.5-35.2 [facility] Comment on above: Performed By: #### T 4F, CMP, [id number], YUSUF, CEA, FE and TIBC, LIPASE, MARILU, CBC, TSH3 ####[place] [address] [place]#### METH ####[facility] , MCHC Auto (RBC) [Mass/Vol]Or dered By: Estela Varma on 06-25-2023 MCHC (RBC) [Mass/Vol] 33.7 g/dL 32.5-35.6 [facility] MCV [Entitic volume] by Auto mated countOrdered By: Estela Varma on 06-25-2023 MCV (RBC) [Entitic vol] 97.6 fL Normal 83.5-101 [facility] Comment on above: Performed By: #### T 4F, CMP, [id number], YUSUF, CEA, FE and TIBC, LIPASE, MARILU, CBC, TSH3 ####[facility]#### METH ####[facility] , Methylmalonic Acidon 024 Methylmalonic Acid 115 Normal 0-378 [facility] Comment on above: Result Comment: This test was developed and its performance characteristics determined by [facility]. It has not been cleared or approved by the Food and Drug Administration. Performed at: [facility] [id number] Strapping Machine Tender: Loc De Jesus MD, Phone: [phone] PERFORMED BY: [facility] [address] [place] [address] PATHOLOGIST SPOUT POSITIONER CATY DELCID M.D. Performed By: #### T 4F, CMP, [id number], YUSUF, CEA, FE and TIBC, LIPASE, MARILU, CBC, TSH3 ####[address]#### METH ####[facility] , Neutrophils [#/volume] in Bl ood by Automated countOrdered By: Estela Varma on 06-25-2023 Neutrophils (Bld) [#/Vol] 6.5 10*3/uL Normal 1.8-7.7 [facility] Comment on above: Performed By: #### T 4F, CMP, [id number], YUSUF, CEA, FE and TIBC, LIPASE, MARILU, CBC, TSH3 ####[address]#### METH ####[facility] , No Panel InformationOrdered By: Estela Varma on 06-25-2023 Estimated GFR (CKD-EPI) > 60.0 mL/Min [facility] Creatinine Clearance (Chem 108.93 [facility] Nucleated erythrocytes [Pres ence] in Blood by Automated countOrdered By: Estela Varma on 06-25-2023 Nucleated RBC Auto Ql (Bld) 0.2 /100{WBC} 0-0.5 [facility] PET tumor subq tx strat sb-m ton 06-25-2023 PET tumor subq tx strat sb-mt [facility] [place] [address] [place] [address] Nuclear Medicine Report Signed Patient: Kirill Echols MR#: [id number] : 1965 Acct:[id number] Age/Sex: 58 / M ADM Date: 06/25/23 Loc: Room: Type: [facility] RCR Attending Dr: Estela Varma II DO Copies to: Victorino Ellison Jr, DO Timothy J Adamowicz, II, DO Ordering Provider: Estela Varma II, DO Date of Service: 06/25/23 PET/PET tumor subq tx strat sb-mt: surveillance PET/CT FUSION IMAGING CLINICAL INFORMATION: Small cell lung cancer COMPARISON : Prior PET/CT of 12/22/2022 TECHNIQUE: Noncontrasted CT scan from the base of the skull to the upper thigh followed by PET imaging. Multiplanar PET/CT fusion images. Blood Glucose : 97 mg/dL The F-18 FDG 11.87mCi. FINDINGS: Neck: No abnormal activity. Chest:No abnormal activity. Abdomen/pelvis: No abnormal activity. Soft tissue/bones: No abnormal activity. CT findings: Left-sided port is in place. Emphysematous changes with right-sided pleural thickening similar to the prior study. No pericardial or pleural effusions. No free air or free fluid. Evidence of chronic pancreatitis. PET/PET tumor subq tx strat sb-mt IMPRESSION: NO HYPERMETABOLIC REGION OF UPTAKE SEEN TO SUGGEST FDG AVID MALIGNANCY. Impression dictated by: Victorino Ellison Jr., D.O.06/25/2023 10:28 AM Dictation Location: [place] [address] Transcribed By: MARU 06/25/23 1028 Dictated By: Victorino Ellison Jr, DO 06/25/23 1017 Signed By: 06/25/23 1028 Normal [facility] Platelet mean volume [Entiti c volume] in Blood by Automated countOrdered By: Estela Varma on 06-25-2023 Platelet mean volume (Bld) [Entitic vol] 7.4 fL Normal 6.6-10.1 [facility] Comment on above: Performed By: #### T 4F, CMP, [id number], YUSUF, CEA, FE and TIBC, LIPASE, MARILU, CBC, TSH3 ####[address]#### METH ####[facility] , Platelets [#/volume] in Bloo d by Automated countOrdered By: Estela Varma on 06-25-2023 Platelets (Bld) [#/Vol] 196 10*3/uL Normal 150-450 [facility] Comment on above: Performed By: #### T 4F, CMP, [id number], YUSUF, CEA, FE and TIBC, LIPASE, MARILU, CBC, TSH3 ####[address]#### METH ####[facility] , Potassium [Moles/volume] in Serum or PlasmaOrdered By: Estela Varma on 06-25-2023 Potassium [Moles/Vol] 4.2 mmol/L Normal 3.5-5.1 [facility] Comment on above: Performed By: #### T 4F, CMP, [id number], YUSUF, CEA, FE and TIBC, LIPASE, MARILU, CBC, TSH3 ####[address]#### METH ####[facility] , Protein [Mass/volume] in Ser um or PlasmaOrdered By: Estela Varma on 06-25-2023 Protein [Mass/Vol] 6.9 g/dL Normal 6.4-8.9 [facility] Comment on above: Performed By: #### T 4F, CMP, [id number], YUSUF, CEA, FE and TIBC, LIPASE, MARILU, CBC, TSH3 ####[place] [id number] [address]#### METH ####[facility] , Serum globulin measurement b y calculation (mass/volume)Ordered By: Estela Varma on 06-25-2023 Globulin (S) [Mass/Vol] 3.0 g/dL [facility] Comment on above: Performed By: #### T 4F, CMP, [id number], YUSUF, CEA, FE and TIBC, LIPASE, MARILU, CBC, TSH3 ####[address]#### METH ####[facility] , Serum or plasma albumin/glob ulin mass ratioOrdered By: Estela Varma on 06-25-2023 Albumin/Globulin [Mass ratio] 1.3 {ratio} [facility] Comment on above: Performed By: #### T 4F, CMP, [id number], YUSUF, CEA, FE and TIBC, LIPASE, MARILU, CBC, TSH3 ####[address]#### METH ####[facility] , Serum or plasma anion gap de terminationOrdered By: Estela Varma on 06-25-2023 Anion gap [Moles/Vol] 11.0 mmol/L Normal 6.0-15.0 [facility] Comment on above: Performed By: #### T 4F, CMP, [id number], YUSUF, CEA, FE and TIBC, LIPASE, MARILU, CBC, TSH3 ####[address]#### METH ####[facility] , Serum or plasma carcinoembry onic antigen measurement (mass/volume)Ordered By: Estela Varma on 06-25-2023 Carcinoembryonic Ag [Mass/Vol] 9.4 ng/mL 0.0-3.0 [facility] Comment on above: Serial tumor marker results determined by assays using different manufacturers or methods may not be comparable.[facility] web project manager and method:VALENTINE UNICEL DXI, 2 SITE IMMUNOENZYMATIC SANDWICH ASSAY. Sodium [Moles/volume] in Ser um or PlasmaOrdered By: Estela Varma on 06-25-2023 Sodium [Moles/Vol] 126 mmol/L Low 136-145 [facility] Comment on above: Performed By: #### T 4F, CMP, [id number], YUSUF, CEA, FE and TIBC, LIPASE, MARILU, CBC, TSH3 ####[place] [id number] [address]#### METH ####[facility] , Thyrotropin [Units/volume] i n Serum or PlasmaOrdered By: Estela Varma on 06-25-2023 TSH Qn 9.92 m[IU]/L High 0.45-5.33 [facility] Comment on above: Result Comment: PERF ORMED BY: [facility] [address] [facility] [address] PATHOLOGIST SPOUT POSITIONER CATY DELCID M.D. Performed By: #### T 4F, CMP, [id number], YUSUF, CEA, FE and TIBC, LIPASE, MARILU, CBC, TSH3 ####[address]#### METH ####[facility] , Thyroxine (T4) free [Mass/vo lume] in Serum or PlasmaOrdered By: Estela Varma on 06-25-2023 Free T4 [Mass/Vol] 0.71 ng/dL Normal 0.61-1.12 [facility] Comment on above: Performed By: #### T 4F, CMP, [id number], YUSUF, CEA, FE and TIBC, LIPASE, MARILU, CBC, TSH3 ####[facility] [place] [address] [place]#### METH ####[facility] , Transferrin [Mass/volume] in Serum or PlasmaOrdered By: Estela Varma on 06-25-2023 Transferrin [Mass/Vol] 173 mg/dL Low 203-362 [facility] Comment on above: Performed By: #### T 4F, CMP, [id number], YUSUF, CEA, FE and TIBC, LIPASE, MARILU, CBC, TSH3 ####[facility] [place] [address] [place]#### METH ####[facility] , Urea nitrogen [Mass/volume] in Serum or PlasmaOrdered By: Estela Varma on 06-25-2023 Urea nitrogen [Mass/Vol] 5 mg/dL Low 7-25 [facility] Comment on above: Performed By: #### T 4F, CMP, [id number], YUSUF, CEA, FE and TIBC, LIPASE, MARILU, CBC, TSH3 ####[place] [id number] [address]#### METH ####[facility] , Vit. B12/Folate Profileon Folate 9.6 ng/mL Normal >5.9 [facility] Comment on above: Result Comment: [place] te reference range: >5.9 ng/ml The WHO technical consultation on folate and vitamin b12 deficiencies has determined that folate concentrations less than 4 ng/ml are considered deficient. Performed By: #### T 4F, CMP, [id number], YUSUF, CEA, FE and TIBC, LIPASE, MARILU, CBC, TSH3 ####[facility] [place] [address] [place]#### METH ####[facility] , Vitamin B12 ser/plasOrdered By: Estela Varma on 06-25-2023 Cobalamin (Vitamin B12) [Mass/Vol] 309 pg/mL Normal 180-914 [facility] Comment on above: Performed By: #### T 4F, CMP, [id number], YUSUF, CEA, FE and TIBC, LIPASE, MARILU, CBC, TSH3 ####[facility]#### METH ####[facility] , Amylaseon 03-30-2023 Amylase [Catalytic activity/Vol] 48 U/L Normal 29-103 [facility] Comment on above: Performed By: #### F E and TIBC, T4F, CMP, B12, FOL, CBC, CEA, MARILU, LIPASE #### [address] #### METH #### [facility] , Complete Blood Count Auto Di ffon 03-30-2023 Basophils (Bld) [#/Vol] 0.0 10*3/uL Normal 0.0-0.2 [facility] Comment on above: Result Comment: PERF ORMED BY: [place] [address] PATHOLOGIST SPOUT POSITIONER CATY DELCID M.D. Performed By: #### F E and TIBC, T4F, CMP, B12, FOL, CBC, CEA, MARILU, LIPASE #### [address] #### METH #### [facility] , Basophils/100 WBC (Bld) 0.6 % Normal . [facility] Comment on above: Performed By: #### F E and TIBC, T4F, CMP, B12, FOL, CBC, CEA, MARILU, LIPASE #### [address] #### METH #### [facility] , Eosinophils (Bld) [#/Vol] 0.2 10*3/uL Normal 0.0-0.45 [facility] Comment on above: Performed By: #### F E and TIBC, T4F, CMP, B12, FOL, CBC, CEA, MARILU, LIPASE #### [address] [place] [address] [place] #### METH #### [facility] , Eosinophils/100 WBC (Bld) 4.8 % Normal . [facility] Comment on above: Performed By: #### F E and TIBC, T4F, CMP, B12, FOL, CBC, CEA, MARILU, LIPASE #### [address] #### METH #### [facility] , Erythrocyte distribution width (RBC) [Ratio] 15.7 % High 12.0-14.8 [facility] Comment on above: Performed By: #### F E and TIBC, T4F, CMP, B12, FOL, CBC, CEA, MARILU, LIPASE #### [address] #### METH #### [facility] , Hematocrit (Bld) [Volume fraction] 39.3 % Normal 38.8-50.0 [facility] Comment on above: Performed By: #### F E and TIBC, T4F, CMP, B12, FOL, CBC, CEA, MARILU, LIPASE #### [address] #### METH #### [facility] , Hemoglobin (Bld) [Mass/Vol] 13.3 g/dL Normal 13.0-17.0 [facility] Comment on above: Performed By: #### F E and TIBC, T4F, CMP, B12, FOL, CBC, CEA, MARILU, LIPASE #### [address] #### METH #### [facility] , Lymphocytes (Bld) [#/Vol] 0.8 10*3/uL Low 1.00-4.8 [facility] Comment on above: Performed By: #### F E and TIBC, T4F, CMP, B12, FOL, CBC, CEA, MARILU, LIPASE #### [address] #### METH #### [facility] , Lymphocytes/100 WBC (Bld) 14.7 % Normal . [facility] Comment on above: Performed By: #### F E and TIBC, T4F, CMP, B12, FOL, CBC, CEA, MARILU, LIPASE #### [address] #### METH #### [facility] , MCH (RBC) [Entitic mass] 33.1 pg Normal 27.5-35.2 [facility] Comment on above: Performed By: #### F E and TIBC, T4F, CMP, B12, FOL, CBC, CEA, MARILU, LIPASE #### [address] #### METH #### [facility] , MCV (RBC) [Entitic vol] 98.1 fL Normal 83.5-101 [facility] Comment on above: Performed By: #### F E and TIBC, T4F, CMP, B12, FOL, CBC, CEA, MARILU, LIPASE #### [place] [address] [place] #### METH #### [facility] , Mean Corpuscular HGB Conc 33.8 g/dL Normal 32.5-35.6 [facility] Comment on above: Performed By: #### F E and TIBC, T4F, CMP, B12, FOL, CBC, CEA, MARILU, LIPASE #### [address] #### METH #### [facility] , Monocytes (Bld) [#/Vol] 0.6 10*3/uL Normal 0.0-0.8 [facility] Comment on above: Performed By: #### F E and TIBC, T4F, CMP, B12, FOL, CBC, CEA, MARILU, LIPASE #### [facility] [address] [place] [address] [place] #### METH #### [facility] , Monocytes/100 WBC (Bld) 12.2 % Normal . [facility] Comment on above: Performed By: #### F E and TIBC, T4F, CMP, B12, FOL, CBC, CEA, MARILU, LIPASE #### [place] [address] [place] #### METH #### [facility] , Neutrophils (Bld) [#/Vol] 3.5 10*3/uL Normal 1.8-7.7 [facility] Comment on above: Performed By: #### F E and TIBC, T4F, CMP, B12, FOL, CBC, CEA, MARILU, LIPASE #### [address] #### METH #### [facility] , Neutrophils/100 WBC (Bld) 67.7 % Normal . [facility] Comment on above: Performed By: #### F E and TIBC, T4F, CMP, B12, FOL, CBC, CEA, MARILU, LIPASE #### [place] [address] [place] #### METH #### [facility] , NRBC% 0.1 /100{WBC} Normal 0-0.5 [facility] Comment on above: Performed By: #### F E and TIBC, T4F, CMP, B12, FOL, CBC, CEA, MARILU, LIPASE #### [place] [address] [place] #### METH #### [facility] , Platelet mean volume (Bld) [Entitic vol] 7.3 fL Normal 6.6-10.1 [facility] Comment on above: Performed By: #### F E and TIBC, T4F, CMP, B12, FOL, CBC, CEA, MARILU, LIPASE #### [place] [address] [place] #### METH #### [facility] , Platelets (Bld) [#/Vol] 155 10*3/uL Normal 150-450 [facility] Comment on above: Performed By: #### F E and TIBC, T4F, CMP, B12, FOL, CBC, CEA, MARILU, LIPASE #### [address] #### METH #### [facility] , RBC (Bld) [#/Vol] 4.00 10*6/uL Normal 3.90-5.60 [facility] Comment on above: Performed By: #### F E and TIBC, T4F, CMP, B12, FOL, CBC, CEA, MARILU, LIPASE #### [place] [address] [place] #### METH #### [facility] , WBC (Bld) [#/Vol] 5.2 10*3/uL Normal 4.1-10.5 [facility] Comment on above: Performed By: #### F E and TIBC, T4F, CMP, B12, FOL, CBC, CEA, MARILU, LIPASE #### [place] [address] [place] #### METH #### [facility] , Comprehensive Metabolic Pane nicolas 03-30-2023 Albumin [Mass/Vol] 3.9 g/dL Normal 3.5-5.7 [facility] Comment on above: Performed By: #### F E and TIBC, T4F, CMP, B12, FOL, CBC, CEA, MARILU, LIPASE #### [place] [address] [place] #### METH #### [facility] , Albumin/Globulin [Mass ratio] 1.3 {ratio} Normal [facility] Comment on above: Performed By: #### F E and TIBC, T4F, CMP, B12, FOL, CBC, CEA, MARILU, LIPASE #### [place] [address] [place] #### METH #### [facility] , ALP [Catalytic activity/Vol] 136 U/L High 34-104 [facility] Comment on above: Performed By: #### F E and TIBC, T4F, CMP, B12, FOL, CBC, CEA, MARILU, LIPASE #### [address] #### METH #### [facility] , ALT [Catalytic activity/Vol] 11 U/L Normal 7-52 [facility] Comment on above: Performed By: #### F E and TIBC, T4F, CMP, B12, FOL, CBC, CEA, MARILU, LIPASE #### [place] [address] [place] #### METH #### [facility] , Anion gap [Moles/Vol] 10.4 mmol/L Normal 6.0-15.[address] [facility] Comment on above: Performed By: #### F E and TIBC, T4F, CMP, B12, FOL, CBC, CEA, MARILU, LIPASE #### [address] #### METH #### [facility] , AST [Catalytic activity/Vol] 18 U/L Normal 13-39 [facility] Comment on above: Performed By: #### F E and TIBC, T4F, CMP, B12, FOL, CBC, CEA, MARILU, LIPASE #### [facility] [address] [place] [address] [place] #### METH #### [facility] , Bilirubin [Mass/Vol] 0.7 mg/dL Normal 0.3-1.0 [facility] Comment on above: Performed By: #### F E and TIBC, T4F, CMP, B12, FOL, CBC, CEA, MARILU, LIPASE #### [facility] [address] [place] [address] [place] #### METH #### [facility] , Calcium [Mass/Vol] 8.5 mg/dL Low 8.6-10.3 [facility] Comment on above: Performed By: #### F E and TIBC, T4F, CMP, B12, FOL, CBC, CEA, MARILU, LIPASE #### [address] #### METH #### [facility] , Chloride [Moles/Vol] 102 mmol/L Normal 98-107 [facility] Comment on above: Performed By: #### F E and TIBC, T4F, CMP, B12, FOL, CBC, CEA, MARILU, LIPASE #### [place] [address] [place] #### METH #### [facility] , CO2 [Moles/Vol] 21.7 mmol/L Normal 21.0-31.0 [facility] Comment on above: Performed By: #### F E and TIBC, T4F, CMP, B12, FOL, CBC, CEA, MARILU, LIPASE #### [address] #### METH #### [facility] , Creatinine [Mass/Vol] 0.80 mg/dL Normal 0.70-1.30 [facility] Comment on above: Performed By: #### F E and TIBC, T4F, CMP, B12, FOL, CBC, CEA, MARILU, LIPASE #### [place] [address] [place] #### METH #### [facility] , Creatinine Clr Calc Pharmacy 96.47 Normal [facility] Comment on above: Performed By: #### F E and TIBC, T4F, CMP, B12, FOL, CBC, CEA, MARILU, LIPASE #### [place] [address] [place] #### METH #### [facility] , GFR/1.73 sq M.predicted MDRD (S/P/Bld) [Vol rate/Area] mL/min/{1.73_m2} Normal [facility] Comment on above: Performed By: #### F E and TIBC, T4F, CMP, B12, FOL, CBC, CEA, MARILU, LIPASE #### [place] [address] [place] #### METH #### [facility] , Globulin (S) [Mass/Vol] 2.9 g/dL Normal [facility] Comment on above: Performed By: #### F E and TIBC, T4F, CMP, B12, FOL, CBC, CEA, MARILU, LIPASE #### [place] [address] [place] #### METH #### [facility] , Glucose [Mass/Vol] 84 mg/dL Normal 70-100 [facility] Comment on above: Result Comment: [place] Glucose Reference Range is dependent on time and content of last meal. Glucose of more than 200 mg/dL in a nonstressed, ambulatory subject supports the diagnosis of Diabetes Mellitus. ADA recommended reference range Performed By: #### F E and TIBC, T4F, CMP, B12, FOL, CBC, CEA, MARILU, LIPASE #### [place] [address] [place] #### METH #### [facility] , Potassium [Moles/Vol] 4.1 mmol/L Normal 3.5-5.1 [facility] Comment on above: Performed By: #### F E and TIBC, T4F, CMP, B12, FOL, CBC, CEA, MARILU, LIPASE #### [place] [address] [place] #### METH #### [facility] , Protein [Mass/Vol] 6.8 g/dL Normal 6.4-8.9 [facility] Comment on above: Performed By: #### F E and TIBC, T4F, CMP, B12, FOL, CBC, CEA, MARILU, LIPASE #### [place] [address] [place] #### METH #### [facility] , Sodium [Moles/Vol] 130 mmol/L Low 136-145 [facility] Comment on above: Performed By: #### F E and TIBC, T4F, CMP, B12, FOL, CBC, CEA, MARILU, LIPASE #### [place] [address] [place] #### METH #### [facility] , Urea nitrogen [Mass/Vol] 5 mg/dL Low 7-25 [facility] Comment on above: Performed By: #### F E and TIBC, T4F, CMP, B12, FOL, CBC, CEA, MARLIU, LIPASE #### [place] [address] [place] #### METH #### [facility] , Folateon 03-30-2023 Folate 15.4 ng/mL Normal >5.9 [facility] Comment on above: Result Comment: [place] te reference range: >5.9 ng/ml The WHO technical consultation on folate and vitamin b12 deficiencies has determined that folate concentrations less than 4 ng/ml are considered deficient. Performed By: #### F E and TIBC, T4F, CMP, B12, FOL, CBC, CEA, MARILU, LIPASE #### [address] #### METH #### [facility] , Free T4 (Free Thyroxine)on 05-30-2022 Free T4 [Mass/Vol] 0.50 ng/dL Low 0.61-1.12 [facility] Comment on above: Result Comment: PERF ORMED BY: [place] [address] PATHOLOGIST SPOUT POSITIONER CATY DELCID M.D. Performed By: #### F E and TIBC, T4F, CMP, B12, FOL, CBC, CEA, MARILU, LIPASE ####[facility] [place] [address] [place]#### METH ####[facility] , Iron and TIBC Profileon 11 % Iron Saturation 67.5 % High 20-50 [facility] Comment on above: Performed By: #### F E and TIBC, T4F, CMP, B12, FOL, CBC, CEA, MARILU, LIPASE #### [place] [address] [place] #### METH #### [facility] , Iron [Mass/Vol] 154 ug/dL Normal 50-212 [facility] Comment on above: Performed By: #### F E and TIBC, T4F, CMP, B12, FOL, CBC, CEA, MARILU, LIPASE #### [facility] [address] [place] [address] [place] #### METH #### [facility] , Total Iron Binding Capacity 228 ug/dL Low 255-450 [facility] Comment on above: Performed By: #### F E and TIBC, T4F, CMP, B12, FOL, CBC, CEA, MARILU, LIPASE #### [facility] [address] [place] [address] [place] #### METH #### [facility] , Transferrin [Mass/Vol] 163 mg/dL Low 203-362 [facility] Comment on above: Performed By: #### F E and TIBC, T4F, CMP, B12, FOL, CBC, CEA, MARILU, LIPASE #### [facility] [address] [place] [address] [place] #### METH #### [facility] , Lipaseon 03-30-2023 Lipase [Catalytic activity/Vol] 22.0 U/L Normal 11.0-82.0 [facility] Comment on above: Performed By: #### F E and TIBC, T4F, CMP, B12, FOL, CBC, CEA, MARILU, LIPASE #### [facility] [address] [place] [address] [place] #### METH #### [facility] , Methylmalonic Acidon 023 Methylmalonic Acid 129 Normal 0-378 [facility] Comment on above: Result Comment: This test was developed and its performance characteristics determined by [employer]. It has not been cleared or approved by the Food and Drug Administration. Performed at: [address] [id number] Strapping Machine Tender: Loc De Jesus MD, Phone: [phone] PERFORMED BY: [place] [address] PATHOLOGIST SPOUT POSITIONER CATY DELCID M.D. Performed By: #### F E and TIBC, T4F, CMP, B12, FOL, CBC, CEA, MARILU, LIPASE ####[facility] [address]#### METH ####[facility] , Serum or plasma methylmalona te measurement (moles/volume)Ordered By: Estela Varma on 03-30-2023 Methylmalonate [Moles/Vol] 129 nmol/L 0-378 [facility] Comment on above: This test was develo ped and its performance characteristicsdetermined by [employer]. It has not been cleared orapproved by the Food and Drug Administration.Performed at: [address] [id number] Director: Loc De Jesus MD, Phone: [phone] Vitamin B12on 03-30-2023 Cobalamin (Vitamin B12) [Mass/Vol] 462 pg/mL Normal 180-914 [facility] Comment on above: Performed By: #### F E and TIBC, T4F, CMP, B12, FOL, CBC, CEA, MARILU, LIPASE #### [facility] [address] [place] [address] [place] #### METH #### [facility] , Alanine aminotransferase [En zymatic activity/volume] in Serum or PlasmaOrdered By: Estela Varma on 12-22-2022 ALT [Catalytic activity/Vol] 13 U/L Normal 7-52 [facility] Comment on above: Performed By: #### C BC, CMP ####[address] Albumin [Mass/volume] in Ser um or Plasma by Bromocresol green (BCG) dye binding methoOrdered By: Estela Varma on 12-22-2022 Albumin BCG dye [Mass/Vol] 3.7 g/dL 3.5-5.7 [facility] Alkaline phosphatase [Enzyma tic activity/volume] in Serum or PlasmaOrdered By: Estela Varma on 12-22-2022 ALP [Catalytic activity/Vol] 122 U/L High 34-104 [facility] Comment on above: Performed By: #### C BC, CMP ####[address] Aspartate aminotransferase [ Enzymatic activity/volume] in Serum or PlasmaOrdered By: Estela Varma on 12-22-2022 AST [Catalytic activity/Vol] 17 U/L Normal 13-39 [facility] Comment on above: Performed By: #### C BC, CMP ####[address] Automated basophil %Ordered By: Estela Varma on 12-22-2022 Basophils/100 WBC (Bld) 1.3 % Normal . [facility] Comment on above: Performed By: #### C BC, CMP ####[address] Automated basophil countOrde red By: Estela Varma on 12-22-2022 Basophils (Bld) [#/Vol] 0.1 10*3/uL Normal 0.0-0.2 [facility] Comment on above: Result Comment: PERF ORMED BY: [facility] [address] [place] [address] PATHOLOGIST SPOUT POSITIONER CATY DELCID M.D. Performed By: #### C BC, CMP ####[place] [id number] [facility] Automated blood monocyte cou ntOrdered By: Estela Varma on 12-22-2022 Monocytes (Bld) [#/Vol] 0.5 10*3/uL Normal 0.0-0.8 [facility] Comment on above: Performed By: #### C BC, CMP ####[address] Automated eosinophil %Ordere d By: Estela Varma on 12-22-2022 Eosinophils/100 WBC (Bld) 5.0 % Normal . [facility] Comment on above: Performed By: #### C BC, CMP ####[address] Automated eosinophil countOr dered By: Estela Varma on 12-22-2022 Eosinophils (Bld) [#/Vol] 0.3 10*3/uL Normal 0.0-0.45 [facility] Comment on above: Performed By: #### C BC, CMP ####[address] Automated monocyte %Ordered By: Estela Varma on 12-22-2022 Monocytes/100 WBC (Bld) 7.8 % Normal . [facility] Comment on above: Performed By: #### C BC, CMP ####[address] Automated neutrophil %Ordere d By: Estela Varma on 12-22-2022 Neutrophils/100 WBC (Bld) 70.2 % Normal . [facility] Comment on above: Performed By: #### C BC, CMP ####[address] Bilirubin.total [Mass/volume ] in Serum or PlasmaOrdered By: Estela Varma on 12-22-2022 Bilirubin [Mass/Vol] 0.5 mg/dL Normal 0.3-1.0 [facility] Comment on above: Performed By: #### C BC, CMP ####[address] Calcium [Mass/volume] in Ser um or PlasmaOrdered By: Estela Varma on 12-22-2022 Calcium [Mass/Vol] 8.0 mg/dL Low 8.6-10.3 [facility] Comment on above: Performed By: #### C BC, CMP ####[place] [id number] [place] [id number] [facility] Capillary blood glucose ledy urement by glucometer (mass/volume)Ordered By: Estela Varma on 12-22-2022 Glucose [Mass/Vol] 71 mg/dL Normal [facility] Comment on above: Random Glucose Refer ence Range is dependent on time and content of last meal. Glucose of more than 200 mg/dL in a nonstressed, ambulatory subject supports the diagnosis of Diabetes Mellitus. Result Comment: [place] om Glucose Reference Range is dependent on time and content of last meal. Glucose of more than 200 mg/dL in a nonstressed, ambulatory subject supports the diagnosis of Diabetes Mellitus. PERFORMED BY: [facility] [address] [place] [address] PATHOLOGIST SPOUT POSITIONER CATY DELCID M.D. Performed By: #### G TERRY ####Point of Care testing, Carbon dioxide, total [Moles /volume] in Serum or PlasmaOrdered By: Estela Varma on 12-22-2022 CO2 [Moles/Vol] 23.2 mmol/L Normal 21.0-31.0 [facility] Comment on above: Performed By: #### C BC, CMP ####[place] [id number] [facility] Chloride [Moles/volume] in S coral or PlasmaOrdered By: Estela Varma on 12-22-2022 Chloride [Moles/Vol] 100 mmol/L Normal 98-107 [facility] Comment on above: Performed By: #### C BC, CMP ####[place] [id number] [place] [id number] [facility] Complete Blood Count Auto Di ffon 12-22-2022 Mean Corpuscular HGB Conc 33.5 g/dL Normal 32.5-35.6 [facility] Comment on above: Performed By: #### C BC, CMP ####[place] [id number] [facility] NRBC% 0.0 /100{WBC} Normal 0-0.5 [facility] Comment on above: Performed By: #### C BC, CMP ####[address] Comprehensive Metabolic Pane nicolas 12-22-2022 Albumin [Mass/Vol] 3.7 g/dL Normal 3.5-5.7 [facility] Comment on above: Performed By: #### C BC, CMP ####[address] Creatinine Clr Calc Pharmacy 114.05 Normal [facility] Comment on above: Result Comment: PERF ORMED BY: [facility] [address] [place] [address] PATHOLOGIST SPOUT POSITIONER CATY DELCID M.D. Performed By: #### C BC, CMP ####[address] GFR/1.73 sq M.predicted MDRD (S/P/Bld) [Vol rate/Area] mL/min/{1.73_m2} Normal [facility] Comment on above: Performed By: #### C BC, CMP ####[address] Creatinine [Mass/volume] in Serum or PlasmaOrdered By: Estela Varma on 12-22-2022 Creatinine [Mass/Vol] 0.69 mg/dL Low 0.70-1.30 [facility] Comment on above: Performed By: #### C BC, CMP ####[address] Erythrocyte distribution wid th [Ratio] by Automated countOrdered By: Estela Varma on 12-22-2022 Erythrocyte distribution width (RBC) [Ratio] 16.0 % High 12.0-14.8 [facility] Comment on above: Performed By: #### C BC, CMP ####[address] Erythrocytes [#/volume] in B lood by Automated countOrdered By: Estela Varma on 12-22-2022 RBC (Bld) [#/Vol] 4.17 10*6/uL Normal 3.90-5.60 [facility] Comment on above: Performed By: #### C KAYY, CMP ####[place] [id number] [facility] Glucose [Mass/volume] in Ser um or PlasmaOrdered By: Estela Varma on 12-22-2022 Glucose [Mass/Vol] 65 mg/dL Low 70-100 [facility] Comment on above: ADA recommended refe rence rangeRandom Glucose Reference Range is dependent on time and content of last meal. Glucose of more than 200 mg/dL in a nonstressed, ambulatory subject supports the diagnosis of Diabetes Mellitus. Result Comment: [place] om Glucose Reference Range is dependent on time and content of last meal. Glucose of more than 200 mg/dL in a nonstressed, ambulatory subject supports the diagnosis of Diabetes Mellitus. ADA recommended reference range Performed By: #### C KAYY, CMP ####[place] [id number] [facility] Hematocrit [Volume Fraction] of Blood by Automated countOrdered By: Estela Varma on 12-22-2022 Hematocrit (Bld) [Volume fraction] 39.6 % Normal 38.8-50.0 [facility] Comment on above: Performed By: #### C KAYY, CMP ####[place] [id number] [facility] Hemoglobin [Mass/volume] in BloodOrdered By: Estela Varma on 12-22-2022 Hemoglobin (Bld) [Mass/Vol] 13.3 g/dL Normal 13.0-17.0 [facility] Comment on above: Performed By: #### C KAYY, CMP ####[place] [id number] [facility] Leukocytes [#/volume] correc chris for nucleated erythrocytes in Blood by Automated counOrdered By: Estela Varma on 12-22-2022 WBC corrected for nucl RBC Auto (Bld) [#/Vol] 6.0 10*3/uL 4.1-10.5 [facility] Leukocytes [#/volume] in Blo od by Automated countOrdered By: Estela Varma on 12-22-2022 WBC (Bld) [#/Vol] 6.0 10*3/uL Normal 4.1-10.5 [facility] Comment on above: Performed By: #### C BC, CMP ####[address] Lymphocytes [#/volume] in Bl ood by Automated countOrdered By: Estela Varma on 12-22-2022 Lymphocytes (Bld) [#/Vol] 0.9 10*3/uL Low 1.00-4.8 [facility] Comment on above: Performed By: #### C KAYY, CMP ####[address] Lymphocytes/100 leukocytes i n Blood by Automated countOrdered By: Estela Varma on 12-22-2022 Lymphocytes/100 WBC (Bld) 15.7 % Normal . [facility] Comment on above: Performed By: #### C BC, CMP ####[address] MCH [Entitic mass] by Automa chris countOrdered By: Estela Varma on 12-22-2022 MCH (RBC) [Entitic mass] 31.9 pg Normal 27.5-35.2 [facility] Comment on above: Performed By: #### C BC, CMP ####[address] MCHC Auto (RBC) [Mass/Vol]Or dered By: Estela Varma on 12-22-2022 MCHC (RBC) [Mass/Vol] 33.5 g/dL 32.5-35.6 [facility] MCV [Entitic volume] by Auto mated countOrdered By: Estela Varma on 12-22-2022 MCV (RBC) [Entitic vol] 95.0 fL Normal 83.5-101 [facility] Comment on above: Performed By: #### C BC, CMP ####[facility] [address] Neutrophils [#/volume] in Bl ood by Automated countOrdered By: Estela Varma on 12-22-2022 Neutrophils (Bld) [#/Vol] 4.2 10*3/uL Normal 1.8-7.7 [facility] Comment on above: Performed By: #### C BC, CMP ####[facility] [address] No Panel InformationOrdered By: Estela Varma on 12-22-2022 Estimated GFR (CKD-EPI) > 60.0 mL/Min [facility] Creatinine Clearance (Chem 114.05 [facility] Nucleated erythrocytes [Pres ence] in Blood by Automated countOrdered By: Estela Varma on 12-22-2022 Nucleated RBC Auto Ql (Bld) 0.0 /100{WBC} 0-0.5 [facility] PET tumor subq tx strat sb-m ton 12-22-2022 PET tumor subq tx strat sb-mt [facility] [place] [address] Nuclear Medicine Report Signed Patient: Kirill Echols MR#: [id number] 194 : 1965 Acct:[id number] Age/Sex: 57 / M ADM Date: 12/22/22 Loc: Room: Type: [facility] Attending Dr: Estela Varma II DO Copies to: Victorino Ellison Jr, DO Timothy J Adamowicz, II, DO Ordering Provider: Estela Varma II, DO Date of Service: 12/22/22 PET/PET tumor subq tx strat sb-mt: surveilance PET/CT FUSION IMAGING CLINICAL INFORMATION: Small cell lung cancer COMPARISON : Prior PET/CT 09/15/2022 TECHNIQUE: Noncontrasted CT scan from the base of the skull to the upper thigh followed by PET imaging. Multiplanar PET/CT fusion images. Blood Glucose : 71 mg/dL The F-18 FDG 12.55mCi. FINDINGS: Neck: No abnormal activity. Chest:No abnormal activity. Abdomen/pelvis: No abnormal activity. Soft tissue/bones: No abnormal activity. CT findings: Left-sided port is in place. Emphysematous changes with right-sided pleural thickening. No pericardial or pleural effusions. No pneumothorax. No free air or free fluid. Evidence of chronic pancreatitis. PET/PET tumor subq tx strat sb-mt IMPRESSION: NO HYPERMETABOLIC REGION OF UPTAKE SEEN TO SUGGEST FDG AVID MALIGNANCY. Impression dictated by: Victorino Ellison Jr., Wesley12/22/2022 11:42 AM Dictation Location: [place] [address] Transcribed By: [facility] 12/22/22 1142 Dictated By: Victorino Ellison Jr, DO 12/22/22 1135 Signed By: 12/22/22 1142 Normal [facility] Platelet mean volume [Entiti c volume] in Blood by Automated countOrdered By: Estela Varma on 12-22-2022 Platelet mean volume (Bld) [Entitic vol] 6.9 fL Normal 6.6-10.1 [facility] Comment on above: Performed By: #### C BC, CMP ####[place] [id number] [place] [address] [facility] Platelets [#/volume] in Bloo d by Automated countOrdered By: Estela Varma on 12-22-2022 Platelets (Bld) [#/Vol] 177 10*3/uL Normal 150-450 [facility] Comment on above: Performed By: #### C BC, CMP ####[place] [id number] [place] [address] [place] Potassium [Moles/volume] in Serum or PlasmaOrdered By: Estela Varma on 12-22-2022 Potassium [Moles/Vol] 4.2 mmol/L Normal 3.5-5.1 [facility] Comment on above: Performed By: #### C BC, CMP ####[place] [id number] [place] [address] [facility] Protein [Mass/volume] in Ser um or PlasmaOrdered By: Estela Varma on 12-22-2022 Protein [Mass/Vol] 6.0 g/dL Low 6.4-8.9 [facility] Comment on above: Performed By: #### C BC, CMP ####[address] Serum globulin measurement b y calculation (mass/volume)Ordered By: Estela Varma on 12-22-2022 Globulin (S) [Mass/Vol] 2.3 g/dL [facility] Comment on above: Performed By: #### C BC, CMP ####[place] [id number] [facility] Serum or plasma albumin/glob ulin mass ratioOrdered By: Estela Varma on 12-22-2022 Albumin/Globulin [Mass ratio] 1.6 {ratio} [facility] Comment on above: Performed By: #### C BC, CMP ####[address] Serum or plasma anion gap de terminationOrdered By: Estela Varma on 12-22-2022 Anion gap [Moles/Vol] 8.0 mmol/L Normal 6.0-15.0 [facility] Comment on above: Performed By: #### C BC, CMP ####[address] Sodium [Moles/volume] in Ser um or PlasmaOrdered By: Estela Varma on 12-22-2022 Sodium [Moles/Vol] 127 mmol/L Low 136-145 [facility] Comment on above: Performed By: #### C BC, CMP ####[place] [id number] [facility] Urea nitrogen [Mass/volume] in Serum or PlasmaOrdered By: Estela Varma on 12-22-2022 Urea nitrogen [Mass/Vol] 6 mg/dL Low 7-25 [facility] Comment on above: Performed By: #### C BC, CMP ####[place] [id number] [facility] Alanine aminotransferase [En zymatic activity/volume] in Serum or PlasmaOrdered By: Estela Varma on 10-26-2022 ALT [Catalytic activity/Vol] 12 U/L Normal 7-52 [facility] Comment on above: Performed By: #### C BC, ESR, CMP, FE and TIBC, YUSUF, [id number], CEA ####[place] [id number] [place] [address] [place]#### EPO ####[facility] , Albumin [Mass/volume] in Ser um or Plasma by Bromocresol green (BCG) dye binding methoOrdered By: Estela Varma on 10-26-2022 Albumin BCG dye [Mass/Vol] 3.9 g/dL 3.5-5.7 [facility] Alkaline phosphatase [Enzyma tic activity/volume] in Serum or PlasmaOrdered By: Estela Varma on 10-26-2022 ALP [Catalytic activity/Vol] 140 U/L High 34-104 [facility] Comment on above: Performed By: #### C BC, ESR, CMP, FE and TIBC, YUSUF, [id number], CEA ####[place] [address] [place]#### EPO ####[facility] , Aspartate aminotransferase [ Enzymatic activity/volume] in Serum or PlasmaOrdered By: Estela Varma on 10-26-2022 AST [Catalytic activity/Vol] 16 U/L Normal 13-39 [facility] Comment on above: Performed By: #### C BC, ESR, CMP, FE and TIBC, YUSUF, [id number], CEA ####[place] [address] [place]#### EPO ####[facility] , Automated basophil %Ordered By: Estela Varma on 10-26-2022 Basophils/100 WBC (Bld) 0.8 % Normal . [facility] Comment on above: Performed By: #### F E and TIBC, T4F, CMP, B12, FOL, CBC, CEA, MARILU, LIPASE #### [facility] [address] [place] [address] [place] #### METH #### [facility] , Automated basophil countOrde red By: Estela Varma on 10-26-2022 Basophils (Bld) [#/Vol] 0.0 10*3/uL Normal 0.0-0.2 [facility] Comment on above: Performed By: #### F E and TIBC, T4F, CMP, B12, FOL, CBC, CEA, MARILU, LIPASE #### [place] [address] [place] #### METH #### [facility] , Automated blood monocyte cou ntOrdered By: Estela Varma on 10-26-2022 Monocytes (Bld) [#/Vol] 0.7 10*3/uL Normal 0.0-0.8 [facility] Comment on above: Performed By: #### F E and TIBC, T4F, CMP, B12, FOL, CBC, CEA, MARILU, LIPASE #### [place] [address] [place] #### METH #### [facility] , Automated eosinophil %Ordere d By: Estela Varma on 10-26-2022 Eosinophils/100 WBC (Bld) 2.6 % Normal . [facility] Comment on above: Performed By: #### F E and TIBC, T4F, CMP, B12, FOL, CBC, CEA, MARILU, LIPASE #### [place] [address] [place] #### METH #### [facility] , Automated eosinophil countOr dered By: Estela Varma on 10-26-2022 Eosinophils (Bld) [#/Vol] 0.1 10*3/uL Normal 0.0-0.45 [facility] Comment on above: Performed By: #### F E and TIBC, T4F, CMP, B12, FOL, CBC, CEA, MARILU, LIPASE #### [place] [address] [place] #### METH #### [facility] , Automated monocyte %Ordered By: Estela Varma on 10-26-2022 Monocytes/100 WBC (Bld) 12.1 % Normal . [facility] Comment on above: Performed By: #### F E and TIBC, T4F, CMP, B12, FOL, CBC, CEA, MARILU, LIPASE #### [place] [address] [place] #### METH #### [facility] , Automated neutrophil %Ordere d By: Estela Varma on 10-26-2022 Neutrophils/100 WBC (Bld) 69.5 % Normal . [facility] Comment on above: Performed By: #### F E and TIBC, T4F, CMP, B12, FOL, CBC, CEA, MARILU, LIPASE #### [place] [address] [place] #### METH #### [facility] , Bilirubin.total [Mass/volume ] in Serum or PlasmaOrdered By: Estela Varma on 10-26-2022 Bilirubin [Mass/Vol] 0.6 mg/dL Normal 0.3-1.0 [facility] Comment on above: Performed By: #### C BC, ESR, CMP, FE and TIBC, YUSUF, [id number], CEA ####[address]#### EPO ####[facility] , Calcium [Mass/volume] in Ser um or PlasmaOrdered By: Estela Varma on 10-26-2022 Calcium [Mass/Vol] 8.3 mg/dL Low 8.6-10.3 [facility] Comment on above: Performed By: #### C BC, ESR, CMP, FE and TIBC, YUSUF, [id number], CEA ####[place] [address] [place]#### EPO ####[facility] , Carbon dioxide, total [Moles /volume] in Serum or PlasmaOrdered By: Estela Varma on 10-26-2022 CO2 [Moles/Vol] 23.5 mmol/L Normal 21.0-31.0 [facility] Comment on above: Performed By: #### C BC, ESR, CMP, FE and TIBC, YUSUF, [id number], CEA ####[facility]#### EPO ####[facility] , Chloride [Moles/volume] in S coral or PlasmaOrdered By: Estela Varma on 10-26-2022 Chloride [Moles/Vol] 98 mmol/L Normal 98-107 [facility] Comment on above: Performed By: #### C BC, ESR, CMP, FE and TIBC, YUSUF, [id number], CEA ####[address]#### EPO ####[facility] , Complete Blood Count Auto Di ffon 10-26-2022 Mean Corpuscular HGB Conc 34.2 g/dL Normal 32.5-35.6 [facility] Comment on above: Performed By: #### F E and TIBC, T4F, CMP, B12, FOL, CBC, CEA, MARILU, LIPASE #### [place] [address] [place] #### METH #### [facility] , NRBC% 0.2 /100{WBC} Normal 0-0.5 [facility] Comment on above: Performed By: #### F E and TIBC, T4F, CMP, B12, FOL, CBC, CEA, MARILU, LIPASE #### [place] [address] [place] #### METH #### [facility] , Comprehensive Metabolic Pane nicolas 10-26-2022 Albumin [Mass/Vol] 3.9 g/dL Normal 3.5-5.7 [facility] Comment on above: Performed By: #### C BC, ESR, CMP, FE and TIBC, YUSUF, [id number], CEA ####[facility] [place] [address] [place]#### EPO ####[facility] , Creatinine Clr Calc Pharmacy 121.12 Normal [facility] Comment on above: Performed By: #### C BC, ESR, CMP, FE and TIBC, YUSUF, [id number], CEA ####[address] [place] [place] [address] [place]#### EPO ####[facility] , GFR/1.73 sq M.predicted MDRD (S/P/Bld) [Vol rate/Area] mL/min/{1.73_m2} Normal [facility] Comment on above: Performed By: #### C BC, ESR, CMP, FE and TIBC, YUSUF, [id number], CEA ####[address]#### EPO ####[facility] , Creatinine [Mass/volume] in Serum or PlasmaOrdered By: Estela Varma on 10-26-2022 Creatinine [Mass/Vol] 0.67 mg/dL Low 0.70-1.30 [facility] Comment on above: Performed By: #### C BC, ESR, CMP, FE and TIBC, YUSUF, [id number], CEA ####[place] [address] [place]#### EPO ####[facility] , Erythrocyte Sedimentation Ra nisa 10-26-2022 ESR (Bld) [Velocity] 16 mm/h Normal 0-19 [facility] Comment on above: Result Comment: PERF ORMED BY: [place] [address] PATHOLOGIST SPOUT POSITIONER CATY DELCID M.D. Performed By: #### F E and TIBC, T4F, CMP, B12, FOL, CBC, CEA, MARILU, LIPASE #### [place] [address] [place] #### METH #### [facility] , Erythrocyte distribution wid th [Ratio] by Automated countOrdered By: Estela Varma on 10-26-2022 Erythrocyte distribution width (RBC) [Ratio] 15.0 % High 12.0-14.8 [facility] Comment on above: Performed By: #### F E and TIBC, T4F, CMP, B12, FOL, CBC, CEA, MARILU, LIPASE #### [facility] [address] [place] [address] [place] #### METH #### [facility] , Erythrocyte sedimentation ra te by Photometric methodOrdered By: Estela Varma on 10-26-2022 ESR Photometric method (Bld) [Velocity] 16 mm/hr 0-19 [facility] Erythrocytes [#/volume] in B lood by Automated countOrdered By: Estela Varma on 10-26-2022 RBC (Bld) [#/Vol] 4.17 10*6/uL Normal 3.90-5.60 [facility] Comment on above: Performed By: #### F E and TIBC, T4F, CMP, B12, FOL, CBC, CEA, MARILU, LIPASE #### [facility] [address] [place] [address] #### METH #### [facility] , Erythropoetin (EPO), Serumon 10-26-2022 Erythropoetin (EPO), Serum 15.7 m[iU]/mL Normal 2.6-18.5 [facility] Comment on above: Result Comment: Sumerian UniCel DxI 800 Immunoassay System Values obtained with different assay methods or kits cannot be used interchangeably. Results cannot be interpreted as absolute evidence of the presence or absence of malignant disease. Performed at: [facility] [address] [id number] Strapping Machine Tender: Fernando Brand PhD, Phone: [phone] PERFORMED BY: [place] [address] PATHOLOGIST SPOUT POSITIONER JIANLAN SUN M.D. Performed By: #### F E and TIBC, T4F, CMP, B12, FOL, CBC, CEA, MARILU, LIPASE #### [facility] [address] [place] [address] [place] #### METH #### [facility] , Ferritin [Mass/volume] in Se rum or PlasmaOrdered By: Estela Varma on 10-26-2022 Ferritin [Mass/Vol] 225.5 ng/mL Normal 23.9-336.2 [facility] Comment on above: Performed By: #### F E and TIBC, T4F, CMP, B12, FOL, CBC, CEA, MARILU, LIPASE #### [facility] [address] [place] [address] [place] #### METH #### [facility] , Folate [Mass/volume] in Seru m or PlasmaOrdered By: Estela Varma on 10-26-2022 Folate [Mass/Vol] 4.9 ng/mL >5.9 [facility] Comment on above: Folate reference ran ge: >5.9 ng/mlThe WHO technical consultation on folate and vitamin [id number] has determined that folate concentrations lessthan 4 ng/ml are considered deficient. Glucose [Mass/volume] in Ser um or PlasmaOrdered By: Estela Varma on 10-26-2022 Glucose [Mass/Vol] 66 mg/dL Low 70-100 [facility] Comment on above: ADA recommended refe rence rangeRandom Glucose Reference Range is dependent on time and content of last meal. Glucose of more than 200 mg/dL in a nonstressed, ambulatory subject supports the diagnosis of Diabetes Mellitus. Result Comment: [place] om Glucose Reference Range is dependent on time and content of last meal. Glucose of more than 200 mg/dL in a nonstressed, ambulatory subject supports the diagnosis of Diabetes Mellitus. ADA recommended reference range Performed By: #### C BC, ESR, CMP, FE and TIBC, YUSUF, [id number], CEA ####[facility] [address] [place] [address] [place]#### EPO ####[facility] , Hematocrit [Volume Fraction] of Blood by Automated countOrdered By: Estela Varma on 10-26-2022 Hematocrit (Bld) [Volume fraction] 39.7 % Normal 38.8-50.0 [facility] Comment on above: Performed By: #### F E and TIBC, T4F, CMP, B12, FOL, CBC, CEA, MARILU, LIPASE #### [place] [address] [place] #### METH #### [facility] , Hemoglobin [Mass/volume] in BloodOrdered By: Estela Varma on 10-26-2022 Hemoglobin (Bld) [Mass/Vol] 13.6 g/dL Normal 13.0-17.0 [facility] Comment on above: Performed By: #### F E and TIBC, T4F, CMP, B12, FOL, CBC, CEA, MARILU, LIPASE #### [place] [address] [place] #### METH #### [facility] , Iron [Mass/volume] in Serum or PlasmaOrdered By: Estela Varma on 10-26-2022 Iron [Mass/Vol] 103 ug/dL Normal 50-212 [facility] Comment on above: Performed By: #### F E and TIBC, T4F, CMP, B12, FOL, CBC, CEA, MARILU, LIPASE #### [place] [address] [place] #### METH #### [facility] , Iron and TIBC Profileon 10-12 % Iron Saturation 38.3 % Normal 20-50 [facility] Comment on above: Performed By: #### F E and TIBC, T4F, CMP, B12, FOL, CBC, CEA, MARILU, LIPASE #### [place] [address] [place] #### METH #### [facility] , Total Iron Binding Capacity 269 ug/dL Normal 255-450 [facility] Comment on above: Performed By: #### F E and TIBC, T4F, CMP, B12, FOL, CBC, CEA, MARILU, LIPASE #### [place] [address] [place] #### METH #### [facility] , Iron binding capacity [Mass/ volume] in Serum or PlasmaOrdered By: Estela Varma on 10-26-2022 Iron binding capacity [Mass/Vol] 269 ug/dL 255-450 [facility] Iron saturation [Mass Fracti on] in Serum or PlasmaOrdered By: Estela Varma on 10-26-2022 Iron saturation [Mass fraction] 38.3 % 20-50 [facility] Leukocytes [#/volume] correc chris for nucleated erythrocytes in Blood by Automated counOrdered By: Estela Varma on 10-26-2022 WBC corrected for nucl RBC Auto (Bld) [#/Vol] 5.8 10*3/uL 4.1-10.5 [facility] Leukocytes [#/volume] in Blo od by Automated countOrdered By: Estela Varma on 10-26-2022 WBC (Bld) [#/Vol] 5.8 10*3/uL Normal 4.1-10.5 [facility] Comment on above: Performed By: #### F E and TIBC, T4F, CMP, B12, FOL, CBC, CEA, MARILU, LIPASE #### [address] #### METH #### [facility] , Lymphocytes [#/volume] in Bl ood by Automated countOrdered By: Estela Varma on 10-26-2022 Lymphocytes (Bld) [#/Vol] 0.9 10*3/uL Low 1.00-4.8 [facility] Comment on above: Performed By: #### F E and TIBC, T4F, CMP, B12, FOL, CBC, CEA, MARILU, LIPASE #### [place] [address] [place] #### METH #### [facility] , Lymphocytes/100 leukocytes i n Blood by Automated countOrdered By: Estela Varma on 10-26-2022 Lymphocytes/100 WBC (Bld) 15.0 % Normal . [facility] Comment on above: Performed By: #### F E and TIBC, T4F, CMP, B12, FOL, CBC, CEA, MARILU, LIPASE #### [place] [address] [place] #### METH #### [facility] , MCH [Entitic mass] by Automa chris countOrdered By: Estela Varma on 10-26-2022 MCH (RBC) [Entitic mass] 32.6 pg Normal 27.5-35.2 [facility] Comment on above: Performed By: #### F E and TIBC, T4F, CMP, B12, FOL, CBC, CEA, MARILU, LIPASE #### [address] #### METH #### [facility] , MCHC Auto (RBC) [Mass/Vol]Or dered By: Estela Varma on 10-26-2022 MCHC (RBC) [Mass/Vol] 34.2 g/dL 32.5-35.6 [facility] MCV [Entitic volume] by Auto mated countOrdered By: Estela Varma on 10-26-2022 MCV (RBC) [Entitic vol] 95.2 fL Normal 83.5-101 [facility] Comment on above: Performed By: #### F E and TIBC, T4F, CMP, B12, FOL, CBC, CEA, MARILU, LIPASE #### [place] [address] [place] #### METH #### [facility] , Neutrophils [#/volume] in Bl ood by Automated countOrdered By: Estela Varma on 10-26-2022 Neutrophils (Bld) [#/Vol] 4.1 10*3/uL Normal 1.8-7.7 [facility] Comment on above: Performed By: #### F E and TIBC, T4F, CMP, B12, FOL, CBC, CEA, MARILU, LIPASE #### [facility] [address] [place] [address] [place] #### METH #### [facility] , No Panel InformationOrdered By: Estela Varma on 10-26-2022 Estimated GFR (CKD-EPI) > 60.0 mL/Min [facility] Creatinine Clearance (Chem 121.12 [facility] Nucleated erythrocytes [Pres ence] in Blood by Automated countOrdered By: Estela Varma on 10-26-2022 Nucleated RBC Auto Ql (Bld) 0.2 /100{WBC} 0-0.5 [facility] Platelet mean volume [Entiti c volume] in Blood by Automated countOrdered By: Estela Varma on 10-26-2022 Platelet mean volume (Bld) [Entitic vol] 6.7 fL Normal 6.6-10.1 [facility] Comment on above: Performed By: #### F E and TIBC, T4F, CMP, B12, FOL, CBC, CEA, MARILU, LIPASE #### [address] #### METH #### [facility] , Platelets [#/volume] in Bloo d by Automated countOrdered By: Estela Varma on 10-26-2022 Platelets (Bld) [#/Vol] 227 10*3/uL Normal 150-450 [facility] Comment on above: Performed By: #### F E and TIBC, T4F, CMP, B12, FOL, CBC, CEA, MARILU, LIPASE #### [facility] [address] [place] [address] [place] #### METH #### [facility] , Potassium [Moles/volume] in Serum or PlasmaOrdered By: Estela Varma on 10-26-2022 Potassium [Moles/Vol] 4.1 mmol/L Normal 3.5-5.1 [facility] Comment on above: Performed By: #### C BC, ESR, CMP, FE and TIBC, YUSUF, [id number], CEA ####[place] [id number]#### EPO ####[facility] , Protein [Mass/volume] in Ser um or PlasmaOrdered By: Estela Varma on 10-26-2022 Protein [Mass/Vol] 6.7 g/dL Normal 6.4-8.9 [facility] Comment on above: Performed By: #### C BC, ESR, CMP, FE and TIBC, YUSUF, [id number], CEA ####[address]#### EPO ####[facility] , Serum globulin measurement b y calculation (mass/volume)Ordered By: Estela Varma on 10-26-2022 Globulin (S) [Mass/Vol] 2.8 g/dL [facility] Comment on above: Performed By: #### C BC, ESR, CMP, FE and TIBC, YUSUF, [id number], CEA ####[address]#### EPO ####[facility] , Serum or plasma albumin/glob ulin mass ratioOrdered By: Estela Varma on 10-26-2022 Albumin/Globulin [Mass ratio] 1.4 {ratio} [facility] Comment on above: Performed By: #### C BC, ESR, CMP, FE and TIBC, YUSUF, [id number], CEA ####[place] [address] [place]#### EPO ####[facility] , Serum or plasma anion gap de terminationOrdered By: Estela Varma on 10-26-2022 Anion gap [Moles/Vol] 11.6 mmol/L Normal 6.0-15.0 [facility] Comment on above: Performed By: #### C BC, ESR, CMP, FE and TIBC, YUSUF, [id number], CEA ####[address] [place] [address] [place]#### EPO ####[facility] , Serum or plasma carcinoembry onic antigen measurement (mass/volume)Ordered By: Estela Varma on 10-26-2022 Carcinoembryonic Ag [Mass/Vol] 8.0 ng/mL 0.0-3.0 [facility] Serum or plasma erythropoiet in (EPO) measurement (units/volume)Ordered By: Estela Varma on 10-26-2022 Erythropoietin (EPO) Qn 15.7 mIU/mL 2.6-18.5 [facility] Comment on above: MRO el DxI 800 Immunoassay SystemValues obtained with different assay methods or kits cannotbe used interchangeably. Results cannot be interpreted asabsolute evidence of the presence or absence of malignantdisease.Performed at: [facility] [address] Director: Fernando Brand PhD, Phone: [phone] Sodium [Moles/volume] in Ser um or PlasmaOrdered By: Estela Varma on 10-26-2022 Sodium [Moles/Vol] 129 mmol/L Low 136-145 [facility] Comment on above: Performed By: #### C BC, ESR, CMP, FE and TIBC, YUSUF, [id number], CEA ####[facility]#### EPO ####[facility] , Transferrin [Mass/volume] in Serum or PlasmaOrdered By: Estela Varma on 10-26-2022 Transferrin [Mass/Vol] 192 mg/dL Low 203-362 [facility] Comment on above: Performed By: #### F E and TIBC, T4F, CMP, B12, FOL, CBC, CEA, MARILU, LIPASE #### [facility] [address] [place] [address] [place] #### METH #### [facility] , Urea nitrogen [Mass/volume] in Serum or PlasmaOrdered By: Estela Varma on 10-26-2022 Urea nitrogen [Mass/Vol] 8 mg/dL Normal 7-25 [facility] Comment on above: Performed By: #### C BC, ESR, CMP, FE and TIBC, YUSUF, [id number], CEA ####[facility]#### EPO ####[facility] , Vit. B12/Folate Profileon Folate 4.9 ng/mL Low >5.9 [facility] Comment on above: Result Comment: Estrella te reference range: >5.9 ng/ml The WHO technical consultation on folate and vitamin b12 deficiencies has determined that folate concentrations less than 4 ng/ml are considered deficient. PERFORMED BY: [place] [address] PATHOLOGIST SPOUT POSITIONER CATY DELCID M.D. Performed By: #### F E and TIBC, T4F, CMP, B12, FOL, CBC, CEA, MARILU, LIPASE #### [address] #### METH #### [facility] , Vitamin B12 ser/plasOrdered By: Estela Varma on 10-26-2022 Cobalamin (Vitamin B12) [Mass/Vol] 252 pg/mL Normal 180-914 [facility] Comment on above: Performed By: #### F E and TIBC, T4F, CMP, B12, FOL, CBC, CEA, MARILU, LIPASE #### [address] #### METH #### [facility] , XR chest 2V*on 10-26-2022 XR chest 2V* [facility] [place] [address] [place] [address] XRay Report Signed Patient: Kirill Echols MR#: [id number] 194 : 1965 Acct:[id number] Age/Sex: 57 / M ADM Date: 10/26/22 Loc: ER Room: Type: [facility] ER Attending Dr: Copies to: Humberto Molina PA-C Ordering Provider: Humberto Molina PA-C Date of Service: 10/26/22 XR/XR chest 2V*: Recheck/Abnormal Lab/Rx PA AND LATERAL CHEST: CLINICAL HISTORY: Shortness of breath and chest tightness. Follow-up right Pleurx catheter after a suture fell out. COMPARISON: 10/18/2022 There is a left-sided Bpmgiv-d-Qvux catheter. The right basilar Pleurx catheter is again seen and there is no significant change in position. Pleural parenchymal changes are still visualized on that side. There is no new consolidation or pneumothorax. The cardiac, hilar and mediastinal silhouettes are stable. There is no vascular congestion. The visualized bony thorax is intact. There is endplate spurring at the spine. XR/XR chest 2V* IMPRESSION: SIMILAR RIGHT BASILAR PLEURX CATHETER WITH CONTINUED PLEURAL PARENCHYMAL CHANGES ON THAT SIDE. Impression dictated by: Ashley Velasquez M.D.10/26/2022 1:32 PM Dictation Location: [place] [address] Transcribed By: [facility] 10/26/22 1332 Dictated By: Ashley Velasquez MD 10/26/22 1329 Signed By: 10/26/22 1332 Normal [facility] XR chest 2V*on 10-18-2022 XR chest 2V* [facility] [place] [address] XRay Report Signed Patient: Kirill Echols MR#: [id number] 194 : 1965 Acct:[id number] Age/Sex: 57 / M ADM Date: 10/18/22 Loc: XD Room: Type: [facility] Attending Dr: Nilsa Isidro RN TRANSITION[employer] CAR[employer] Copies to: Nilsa Isidro CNP Ordering Provider: Nilsa Isidro CNP Date of Service: 10/18/22 XR/XR chest 2V*: RO6.09 PA AND LATERAL CHEST: CLINICAL HISTORY: Shortness of breath and chest pain. COMPARISON: 06/17/2022 There is a left Fvvcqn-c-Zqlj catheter. A right basilar chest tube is again seen. There is still a small amount of right pleural fluid. Underlying atelectasis is not excluded. There is also right apical capping that may also be pleural fluid. The left lung is clear. No pneumothorax is seen. The cardiac, hilar and mediastinal silhouettes are stable. There is no vascular congestion. The visualized bony thorax is intact. XR/XR chest 2V* IMPRESSION: CONTINUED RIGHT PLEURAL EFFUSION AND POSSIBLE BASILAR ATELECTASIS. Impression dictated by: Ashley Velasquez M.D.10/18/2022 5:27 PM Dictation Location: [place] [address] Transcribed By: [facility] 10/18/221726 Dictated By: Ashley Velasquez MD 10/18/221706 Signed By: 10/18/221726 Normal [facility] CYTOLOGYon 10-03-2022 SENT TO REF LAB 10/04/2022 Normal [facility] Comment on above: Performed By: #### C YTO #### [facility] [address] [place] [address] Dr. Sushant Pradhan CULTURE STERILE BODY FLUIDon 09-11-2022 CULTURE STERILE BODY FLUID Culture Observations: NO GROWTH AT 72 HRS Normal [facility] Comment on above: Performed By: #### C MREP #### [facility] [address] [place] [address] Dr. Sushant Pradhan CULTURE STERILE BODY FLUIDon 09-08-2022 CULTURE STERILE BODY FLUID Culture Observations: NO GROWTH AT 72 HOURS. [facility] Comment on above: Performed By: #### C MREP #### [facility] [address] [place] [address] Dr. Sushant Pradhan CULTURE STERILE BODY FLUIDon 09-04-2022 CULTURE STERILE BODY FLUID Culture Observations: NO GROWTH AT 72 HOURS. [facility] Comment on above: Performed By: #### C MREP #### [facility] [address] [place] [address] Dr. Sushant Pradhan XR RIBS LT PA Romina 3 XR RIBS LT PA CH EXAMINATION: XR RIBS LT PA CH HISTORY: Pleuritic pain ; upper anterior left rib pain for several months; no known injury COMPARISON: XR chest 06/18/2022, CT chest 08/27/2022 FINDINGS: LUNGS: Every expanded lungs compatible with COPD. Patchy infiltrates versus atelectasis within right lung base. PLEURA: Moderate right pleural effusion with pleural drain within right lung base. MEDIASTINUM: No visible mass or adenopathy. CARDIAC: No cardiomegaly or cardiac silhouette abnormality. RIBS: Normal. No significant arthropathy or acute abnormality. OTHER: Stable left Port-A-Cath with tip in superior vena cava. IMPRESSION: 1. No appreciable left rib abnormality or findings to account for patient's left side symptoms. 2. Moderate right pleural effusion with pleural drain in place. 3. Patchy and confluent opacities within right lung base most notable along the lateral chest wall; infiltrates versus consolidation versus mass; not significant changed compared to recent CT study. Electronically authenticated by: JESSE RAMOS Date: 2022-09-01 11:46 Normal [facility] CBC AUTO DIFFon 08-27-2022 BASO # 0.0 103/ul Normal 0.0-0.1 [facility] Comment on above: Performed By: #### C BC #### [facility] [address] [place] [address] [address] Sushant Pradhan Basophils/100 WBC (Bld) 0.3 % Normal 0.2-2.0 [facility] Comment on above: Performed By: #### C BC #### [facility] [address] [place] [address] [address] Sushant Pradhan EO # 0.2 103/ul Normal 0.0-0.7 [facility] Comment on above: Performed By: #### C BC #### [facility] [address] [place] [address] [address] Sushant Pradhan Eosinophils/100 WBC (Bld) 3.0 % Normal 0.9-7.0 [facility] Comment on above: Performed By: #### C BC #### [facility] [address] [place] [address] [address] Sushant Pradhan Erythrocyte distribution width (RBC) [Ratio] 16.5 % Critically high 11.0-15.0 [facility] Comment on above: Performed By: #### C BC #### [facility] [address] [place] [address] [address] Sushant Pradhan Hematocrit (Bld) [Volume fraction] 38.4 % Critically low 42.0-54.0 [facility] Comment on above: Performed By: #### C BC #### [facility] [address] [place] [address] [address] Sushant Pradhan Hemoglobin (Bld) [Mass/Vol] 13.9 g/dL Critically low 14.0-18.0 [facility] Comment on above: Performed By: #### C BC #### [facility] [address] [place] [address] [address] Sushant Pradhan IG # 0.01 10e3/ul Normal 0.00-0.03 [facility] Comment on above: Performed By: #### C BC #### [facility] [address] [place] [address] Dr. Sushant Pradhan IG % 0.2 % Normal 0.0-0.5 [facility] Comment on above: Performed By: #### C BC #### [facility] [address] [place] [address] Dr. Sushant Pradhan LYMPH # 1.0 103/ul Critically low 1.2-3.8 [facility] Comment on above: Performed By: #### C BC #### [facility] [address] [place] [address] Dr. Sushant Pradhan Lymphocytes/100 WBC (Bld) 15.8 % Critically low 20.5-60.0 [facility] Comment on above: Performed By: #### C BC #### [facility] [address] [place] [address] Dr. Sushant Pradhan MANUAL DIFF REQ NO Normal [facility] Comment on above: Performed By: #### C BC #### [facility] [address] [place] [address] Dr. Sushant Pradhan MCH (RBC) [Entitic mass] 32.8 pg Normal 25.9-34.0 [facility] Comment on above: Performed By: #### C BC #### [facility] [address] [place] [address] Dr. Sushant Pradhan MCHC (RBC) [Mass/Vol] 36.2 g/dL Critically high 29.9-35.2 [facility] Comment on above: Performed By: #### C BC #### [facility] [address] [place] [address] Dr. Sushant Pradhan MCV (RBC) [Entitic vol] 90.6 fL Normal 80.0-94.0 [facility] Comment on above: Performed By: #### C BC #### [facility] [address] [place] [address] Dr. Sushant Pradhan MONO # 0.8 103/ul Normal 0.3-0.8 [facility] Comment on above: Performed By: #### C BC #### [facility] [address] [place] [address] Dr. Sushant Pradhan Monocytes/100 WBC (Bld) 12.6 % Critically high 1.7-12.0 [facility] [facility] Comment on above: Performed By: #### C BC #### [facility] [address] [place] [address] Dr. Sushant Pradhan NEUT # 4.3 103/ul Normal 1.4-6.5 [facility] Comment on above: Performed By: #### C BC #### [facility] [address] [place] [address] Dr. Sushant Pradhan Neutrophils/100 WBC (Bld) 68.1 % Normal 43.0-75.0 [facility] Comment on above: Performed By: #### C BC #### [facility] [address] [place] [address] Dr. Sushant Pradhan Platelet mean volume (Bld) [Entitic vol] 9.0 fL Critically low 9.5-13.5 [facility] Comment on above: Performed By: #### C BC #### [facility] [address] [place] [address] Dr. Sushant Pradhan PLT 192 103/ul Normal 150-450 [facility] Comment on above: Performed By: #### C BC #### [facility] [address] [place] [address] Dr. Sushant Pradhan RBC 4.24 106/ul Critically low 4.70-6.[address] [facility] Comment on above: Performed By: #### C BC #### [facility] [address], [place] [address] Dr. Sushant Pradhan WBC 6.3 103/ul Normal 4.0-11.0 [facility] Comment on above: Performed By: #### C BC #### [facility] [address], [place] [address] CHEST W CONon 08-27-2022 CT CHEST W CON CT CHEST W CON CLINICAL: Chest pain, unspecified. Shortness of breath. History of lung carcinoma 2020. COMPARISON: 11/23/2021, 11/01/2020, 09/29/2019. TECHNIQUE: High-resolution thin section axial images were obtained from thoracic inlet to the level of the adrenals after administration of IV contrast. Dose reduction: mA and/or kV are were adjusted by automated exposure control software based upon patients height and weight. FINDINGS: Thoracic inlet and axillary structures are intact. No mediastinal or hilar adenopathy by CT criteria. Heart size is normal. No pericardial effusion. Coronary artery calcifications are present. The thoracic aorta and great vessels arising from the thoracic aorta show no aneurysm, dissection, transection or leak, and are patent. Central pulmonary arterial tree is opacified and does not show evidence of filling defect. Left-sided Port-A-Cath is present with its tip in the SVC. Limited upper abdominal images show no acute findings. Note is made of mild prominence of the pancreatic duct as seen on prior studies, measuring up to 4 mm at the pancreatic body, not significantly changed. Lung windows show a small right pleural effusion, with a pleural drainage catheter in place, exiting the thoracic compartment at the eighth rib interspace laterally. There is consolidative airspace opacity in the posterior right lower lobe and lateral right middle lobe suggestive of rounded atelectasis. There is right-sided volume loss, with subpleural cystic change along the right pleural and mediastinal margins, which may represent post therapeutic change in light of patient's history. The lungs show moderate centrilobular emphysematous changes bilaterally. Central airways are patent, with mild retained secretions in the lateral proximal trachea. Left lung is well aerated. No evidence of new or enlarging discrete pulmonary parenchymal mass. Osseous structures show no acute traumatic or destructive lesion. IMPRESSION: 1. Small right pleural effusion with pleural drainage catheter in place. 2. Localized crescentic pleural-based airspace consolidation suggestive of rounded atelectasis in the posterior right lower lobe and peripheral right middle lobe. Correlate clinically to exclude signs or symptoms of underlying active infection or neoplasm, with follow-up as warranted to assess for stability or resolution. 3. Right-sided volume loss, likely related to post therapeutic changes in the right perihilar region. No new or enlarging mediastinal or hilar adenopathy. Right hilar and subcarinal nodes are within expected physiologic size limits and not significantly changed. 4. Moderate diffuse centrilobular emphysema. Electronically authenticated by: MARCE SHAY Date: 2022-08-27 12:02 Normal [facility] LACTATE/LACTIC ACIDon 2022 Lactate [Moles/Vol] 1.8 mmol/L Normal 0.4-2.0 [facility] Comment on above: Performed By: #### C MREP #### [facility] [address] [place] [address] Dr. Sushant Pradhan PROF 14(COMP METB)on 023 Albumin [Mass/Vol] 3.2 g/dL Critically low 3.4-5.0 [facility] Comment on above: Performed By: #### C BC #### [facility] [address] [place] [address] Dr. Sushant Pradhan Albumin/Globulin [Mass ratio] 0.7 {ratio} Normal [facility] Comment on above: Performed By: #### C BC #### [facility] [address] [place] [address] Dr. Sushant Pradhan ALP [Catalytic activity/Vol] 207 U/L Critically high 46-116 [facility] Comment on above: Performed By: #### C BC #### [facility] [address] [place] [address] Dr. Sushant Pradhan ALT [Catalytic activity/Vol] 22 U/L Normal 16-63 [facility] Comment on above: Performed By: #### C BC #### [facility] [address] [place] [address] [address] Sushant Pradhan Anion gap [Moles/Vol] 11.9 mmol/L Normal [facility] Comment on above: Performed By: #### C BC #### [facility] [address] [place] [address] Dr. Sushant Pradhan AST [Catalytic activity/Vol] 23 U/L Normal 15-37 [facility] Comment on above: Performed By: #### C BC #### [facility] [address] [place] [address] [address] Sushant Pradhan Bilirubin [Mass/Vol] 0.4 mg/dL Normal 0.2-1.0 [facility] Comment on above: Performed By: #### C BC #### [facility] [address] [place] [address] Dr. Sushant Pradhan Calcium [Mass/Vol] 9.2 mg/dL Normal 8.5-10.1 [facility] Comment on above: Performed By: #### C BC #### [facility] [address] [place] [address] Dr. Sushant Pradhan Chloride [Moles/Vol] 97 mmol/L Critically low 98-107 [facility] Comment on above: Performed By: #### C BC #### [facility] [address] [place] [address] Dr. Sushant Pradhan CO2 [Moles/Vol] 28.1 mmol/L Normal 21.0-32.0 [facility] Comment on above: Performed By: #### C BC #### [facility] [address] [place] [address] Dr. Sushant Pradhan Creatinine [Mass/Vol] 0.86 mg/dL Normal 0.70-1.30 [facility] Comment on above: Performed By: #### C BC #### [facility] [address] [place] [address] Dr. Sushant Pradhan EGFR-AF GAMBIAN >60 Normal >=60 [facility] Comment on above: Performed By: #### C BC #### [facility] [address] [place] [address] Dr. Sushant Pradhan EGFR-NON AF GAMBIAN >60 Normal >=60 [facility] Comment on above: Performed By: #### C BC #### [facility] [address] [place] [address] Dr. Sushant Pradhan Globulin (S) [Mass/Vol] 4.8 g/dL Normal [facility] Comment on above: Performed By: #### C BC #### [facility] [address] [place] [address] [address] Sushant Pradhan Glucose [Mass/Vol] 104 mg/dL Normal 74-106 [facility] Comment on above: Performed By: #### C BC #### [facility] [address] [place] [address] [address] Sushant Pradhan Potassium [Moles/Vol] 4.0 mmol/L Normal 3.5-5.1 [facility] Comment on above: Performed By: #### C BC #### [facility] [address] [place] [address] Dr. Sushant Pradhan Protein [Mass/Vol] 8.0 g/dL Normal 6.4-8.2 [facility] Comment on above: Performed By: #### C BC #### [facility] [address] [place] [address] Dr. Sushant Pradhan Sodium [Moles/Vol] 133 mmol/L Critically low 136-145 [facility] Comment on above: Performed By: #### C BC #### [facility] [address] [place] [address] Dr. Sushant Pradhan Urea nitrogen [Mass/Vol] 6.0 mg/dL Critically low 7.0-18.0 [facility] Comment on above: Performed By: #### C BC #### [facility] [address] [place] [address] [address] Sushant Pradhan Urea nitrogen/Creatinine [Mass ratio] 7.0 mg/mg Normal [facility] Comment on above: Performed By: #### C BC #### [facility] [address] [place] [address] Dr. Sushant Pradhan TROPONIN, HIGH SENSITIVITYon 08-27-2022 HSTROP 5.6 pg/mL Normal 4.0-76.1 [facility] Comment on above: Result Comment: CUT- OFF POINTS HAVE BEEN ESTABLISHED BASED ON THE FOURTH UNIVERSAL DEFINITIONS OF MYOCARDIAL INFARCTION. THE UPPER REFERENCE LIMIT (URL) OF TROPONIN, DEFINED THE 99TH PERCENTILE OF cTnI DISTRIBUTION IN A REFERENCE POPULATION, HAS BEEN CONFIRMED THE DECISION THRESHOLD FOR CO DIAGNOSIS. Performed By: #### C BC #### [facility] [address] [place] [address] Dr. Sushant Pradhan HSTROP 5.8 pg/mL Normal 4.0-76.1 [facility] Comment on above: Result Comment: CUT- OFF POINTS HAVE BEEN ESTABLISHED BASED ON THE FOURTH UNIVERSAL DEFINITIONS OF MYOCARDIAL INFARCTION. THE UPPER REFERENCE LIMIT (URL) OF TROPONIN, DEFINED THE 99TH PERCENTILE OF cTnI DISTRIBUTION IN A REFERENCE POPULATION, HAS BEEN CONFIRMED THE DECISION THRESHOLD FOR CO DIAGNOSIS. Performed By: #### C BC #### [facility] [address] [place] [address] Dr. Sushant Pradhan CARDIAC SONIA ADMITon 023 CK [Catalytic activity/Vol] 68 U/L Normal 39-308 [facility] Comment on above: Performed By: #### C MREP #### [facility] [address] [place] [address] Dr. Sushant Pradhan CK.MB [Mass/Vol] 1.23 ng/mL Normal <=3.60 [facility] Comment on above: Performed By: #### C MREP #### [facility] [address] [place] [address] Dr. Sushant Pradhan HSTROP 7.1 pg/mL Normal 4.0-76.1 [facility] Comment on above: Result Comment: CUT- OFF POINTS HAVE BEEN ESTABLISHED BASED ON THE FOURTH UNIVERSAL DEFINITIONS OF MYOCARDIAL INFARCTION. THE UPPER REFERENCE LIMIT (URL) OF TROPONIN, DEFINED THE 99TH PERCENTILE OF cTnI DISTRIBUTION IN A REFERENCE POPULATION, HAS BEEN CONFIRMED THE DECISION THRESHOLD FOR CO DIAGNOSIS. Performed By: #### C MREP #### [facility] [address] [place] [address] Dr. Sushant Pradhan DILAN 32 ng/mL Normal 16-96 [facility] Comment on above: Performed By: #### C MREP #### [facility] [address] [place] [address] [address] Sushant Pradhan CBC AUTO DIFFon 06-18-2022 BASO # 0.0 103/ul Normal 0.0-0.1 [facility] Comment on above: Performed By: #### C BC #### [facility] [address] [place] [address] Dr. Sushant Pradhan Basophils/100 WBC (Bld) 0.5 % Normal 0.2-2.0 [facility] Comment on above: Performed By: #### C BC #### [facility] [address] [place] [address] Dr. Sushant Pradhan EO # 0.3 103/ul Normal 0.0-0.7 [facility] Comment on above: Performed By: #### C BC #### [facility] [address] [place] [address] Dr. Sushant Pradhan Eosinophils/100 WBC (Bld) 4.5 % Normal 0.9-7.0 [facility] Comment on above: Performed By: #### C BC #### [facility] [address] [place] [address] Dr. Sushant Pradhan Erythrocyte distribution width (RBC) [Ratio] 15.8 % Critically high 11.0-15.0 [facility] Comment on above: Performed By: #### C BC #### [facility] [address] [place] [address] Dr. Sushant Pradhan Hematocrit (Bld) [Volume fraction] 37.3 % Critically low 42.0-54.0 [facility] Comment on above: Performed By: #### C BC #### [facility] [address] [place] [address] Dr. Sushant Pradhan Hemoglobin (Bld) [Mass/Vol] 13.0 g/dL Critically low 14.0-18.0 [facility] Comment on above: Performed By: #### C BC #### [facility] [address] [place] [address] Dr. Sushant Pradhan IG # 0.02 10e3/ul Normal 0.00-0.03 [facility] Comment on above: Performed By: #### C BC #### [facility] [address] [place] [address] [address] Sushant Pradhan IG % 0.3 % Normal 0.0-0.5 [facility] Comment on above: Performed By: #### C BC #### [facility] [address] [place] [address] Dr. Sushant Pradhan LYMPH # 0.8 103/ul Critically low 1.2-3.8 [facility] Comment on above: Performed By: #### C BC #### [facility] [address] [place] [address] Dr. Sushant Pradhan Lymphocytes/100 WBC (Bld) 13.9 % Critically low 20.5-60.0 [facility] Comment on above: Performed By: #### C BC #### [facility] [address] [place] [address] Dr. Sushant Pradhan MANUAL DIFF REQ NO Normal [facility] Comment on above: Performed By: #### C BC #### [facility] [address] [place] [address] Dr. Sushant Pradhan MCH (RBC) [Entitic mass] 33.0 pg Normal 25.9-34.0 [facility] Comment on above: Performed By: #### C BC #### [facility] [address] [place] [address] Dr. Sushant Pradhan MCHC (RBC) [Mass/Vol] 34.9 g/dL Normal 29.9-35.2 [facility] Comment on above: Performed By: #### C BC #### [facility] [address] [place] [address] Dr. Sushant Pradhan MCV (RBC) [Entitic vol] 94.7 fL Critically high 80.0-94.0 [facility] Comment on above: Performed By: #### C BC #### [facility] [address] [place] [address] Dr. Sushant Pradhan MONO # 0.7 103/ul Normal 0.3-0.8 [facility] Comment on above: Performed By: #### C BC #### [facility] [address] [place] [address] [address] Sushant Pradhan Monocytes/100 WBC (Bld) 12.5 % Critically high 1.7-12.0 [facility] Comment on above: Performed By: #### C BC #### [facility] [address] [place] [address] [address] Sushant Pradhan NEUT # 4.0 103/ul Normal 1.4-6.5 [facility] Comment on above: Performed By: #### C BC #### [facility] [address] [place] [address] [address] Sushant Pradhan Neutrophils/100 WBC (Bld) 68.3 % Normal 43.0-75.0 [facility] Comment on above: Performed By: #### C BC #### [facility] [address] [place] [address] Dr. Sushant Pradhan Platelet mean volume (Bld) [Entitic vol] 9.1 fL Critically low 9.5-13.5 [facility] Comment on above: Performed By: #### C BC #### [facility] [address] [place] [address] Dr. Sushant Pradhan PLT 175 103/ul Normal 150-450 [facility] Comment on above: Performed By: #### C BC #### [facility] [address] [place] [address] Dr. Sushant Pradhan RBC 3.94 106/ul Critically low 4.70-6.10 [facility] Comment on above: Performed By: #### C BC #### [facility] [address] [place] [address] Dr. Sushant Pradhan WBC 5.8 103/ul Normal 4.0-11.0 [facility] Comment on above: Performed By: #### C BC #### [facility] [address] [place] [address] Dr. Sushant Pradhan PROF 14(COMP METB)on 023 Albumin [Mass/Vol] 2.9 g/dL Critically low 3.4-5.0 [facility] Comment on above: Performed By: #### C MREP #### [facility] [address] [place] [address] [address] Sushant Pradhan Albumin/Globulin [Mass ratio] 0.8 {ratio} Normal [facility] Comment on above: Performed By: #### C MREP #### [facility] [address] [place] [address] [address] Sushant Pradhan ALP [Catalytic activity/Vol] 133 U/L Critically high 46-116 [facility] Comment on above: Performed By: #### C MREP #### [facility] [address] [place] [address] [address] Sushant Pradhan ALT [Catalytic activity/Vol] 15 U/L Critically low 16-63 [facility] Comment on above: Performed By: #### C MREP #### [facility] [address] [place] [address] Dr. Sushant Pradhan Anion gap [Moles/Vol] 16.5 mmol/L Normal [facility] Comment on above: Performed By: #### C MREP #### [facility] [address] [place] [address] Dr. Sushant Pradhan AST [Catalytic activity/Vol] 15 U/L Normal 15-37 [facility] Comment on above: Performed By: #### C MREP #### [facility] [address] [place] [address] Dr. Sushant Pradhan Bilirubin [Mass/Vol] 0.4 mg/dL Normal 0.2-1.0 [facility] Comment on above: Performed By: #### C MREP #### [facility] [address] [place] [address] [address] Sushant Pradhan Calcium [Mass/Vol] 8.6 mg/dL Normal 8.5-10.1 [facility] Comment on above: Performed By: #### C MREP #### [facility] [address] [address] [address] Sushant Pradhan Chloride [Moles/Vol] 97 mmol/L Critically low 98-107 [facility] Comment on above: Performed By: #### C MREP #### [facility] [address] [address] [address] Sushant Pradhan CO2 [Moles/Vol] 22.3 mmol/L Normal 21.0-32.0 [facility] Comment on above: Performed By: #### C MREP #### [facility] [address] [address] [address] Sushant Pradhan Creatinine [Mass/Vol] 0.61 mg/dL Critically low 0.70-1.30 [facility] Comment on above: Performed By: #### C MREP #### [facility] [address] [place] [address] Dr. Sushant Pradhan EGFR-AF GAMBIAN >60 Normal >=60 [facility] Comment on above: Performed By: #### C MREP #### [facility] [address] [place] [address] Dr. Sushant Pradhan EGFR-NON AF GAMBIAN >60 Normal >=60 [facility] Comment on above: Performed By: #### C MREP #### [facility] [address] [place] [address] Dr. Sushant Pradhan Globulin (S) [Mass/Vol] 3.8 g/dL Normal [facility] Comment on above: Performed By: #### C MREP #### [facility] [address] [place] [address] Dr. Sushant Pradhan Glucose [Mass/Vol] 79 mg/dL Normal 74-106 [facility] Comment on above: Performed By: #### C MREP #### [facility] [address] [place] [address] Dr. Sushant Pradhan Potassium [Moles/Vol] 3.8 mmol/L Normal 3.5-5.1 [facility] Comment on above: Performed By: #### C MREP #### [facility] [address] [place] [address] Dr. Sushant Pradhan Protein [Mass/Vol] 6.7 g/dL Normal 6.4-8.2 [facility] Comment on above: Performed By: #### C MREP #### [facility] [address] [place] [address] Dr. Sushant Pradhan Sodium [Moles/Vol] 132 mmol/L Critically low 136-145 [facility] Comment on above: Performed By: #### C MREP #### [facility] [address] [place] [address] [address] Sushant Pradhan Urea nitrogen [Mass/Vol] 5.0 mg/dL Critically low 7.0-18.0 [facility] Comment on above: Performed By: #### C MREP #### [facility] [address] [address] [address] Sushant Pradhan Urea nitrogen/Creatinine [Mass ratio] 8.2 mg/mg Normal [facility] Comment on above: Performed By: #### C MREP #### [facility] [address] [address] [address] Sushant Pradhan XR CHEST 1 Von 06-18-2022 XR CHEST 1 V EXAMINATION: XR CHES T 1 V HISTORY: pain , shortness of breath, chest pain COMPARISON: XR chest 11/19/2020, CTA chest 11/23/2021 FINDINGS: LUNGS: Dense opacification within lateral right lung base and small caliber pleural drain within right lung base. Right upper lung region and the left lung are clear. VASCULATURE: No increased pulmonary vasculature. PLEURA: No pneumothorax. CARDIAC: No cardiomegaly or cardiac silhouette abnormality. MEDIASTINUM: No visible mass or adenopathy. BONES: No fracture or visible bone lesion. OTHER: Stable left Port-A-Cath with tip in superior vena cava. IMPRESSION: 1. Moderate-sized dense opacification within right lung base obscuring the lateral costophrenic angle and diaphragm with pleural drain in place; pleural effusion and atelectasis versus right lung base mass. No recent studies for comparison. Electronically authenticated by: JESSE RAMOS Date: 2022-06-18 10:42 Normal [facility] Basophils Auto (Bld) [#/Vol] Ordered By: Jackie Fraga on 06-17-2022 Basophils (Bld) [#/Vol] 0.0 10*3/uL 0.0-0.2 [facility] Basophils/100 WBC Auto (Bld) Ordered By: Jackie Fraga on 02-04-2023 Basophils/100 WBC (Bld) 0.7 % . [facility] Creatinine and Glomerular fi ltration rate.predicted panel (S/P/Bld)Ordered By: Jackie Fraga on 06-17-2022 Creatinine [Mass/Vol] 0.91 mg/dL 0.64-1.27 [facility] Eosinophils Auto (Bld) [#/Vo l]Ordered By: Jackie Fraga on 06-17-2022 Eosinophils (Bld) [#/Vol] 0.2 10*3/uL 0.0-0.45 [facility] Eosinophils/100 WBC Auto (Bl d)Ordered By: Jackie Fraga on 06-17-2022 Eosinophils/100 WBC (Bld) 3.5 % . [facility] Erythrocyte distribution wid th Auto (RBC) [Ratio]Ordered By: Jackie Fraga on 06-17-2022 Erythrocyte distribution width (RBC) [Ratio] 15.8 % 12.0-14.8 [facility] Estimated glomerular filtrat ion rate (GFR) non- AmericanOrdered By: Jackie Fraga on 06-17-2022 GFR/1.73 sq M.predicted among non-blacks MDRD (S/P/Bld) [Vol rate/Area] > 60 mL/Min [facility] Hematocrit Auto (Bld) [Volum e fraction]Ordered By: Jackie Fraga on 06-17-2022 Hematocrit (Bld) [Volume fraction] 41.9 % 38.8-50.0 [facility] Hemoglobin [Mass/volume] in BloodOrdered By: Jackie Fraga on 06-17-2022 Hemoglobin (Bld) [Mass/Vol] 13.8 g/dL 13.0-17.0 [facility] Leukocytes [#/volume] correc chris for nucleated erythrocytes in Blood by Automated counOrdered By: Jackie Fraga on 06-17-2022 WBC corrected for nucl RBC Auto (Bld) [#/Vol] 6.1 10*3/uL 4.1-10.5 [facility] Lymphocytes Auto (Bld) [#/Vo l]Ordered By: Jackie Fraga on 06-17-2022 Lymphocytes (Bld) [#/Vol] 1.0 10*3/uL 1.00-4.8 [facility] Lymphocytes/100 WBC Auto (Bl d)Ordered By: Jackie Fraga on 06-17-2022 Lymphocytes/100 WBC (Bld) 16.6 % . [facility] MCH Auto (RBC) [Entitic mass ]Ordered By: Jackie Fraga on 06-17-2022 MCH (RBC) [Entitic mass] 32.9 pg 27.5-35.2 [facility] MCHC Auto (RBC) [Mass/Vol]Or dered By: Jackie Fraga on 06-17-2022 MCHC (RBC) [Mass/Vol] 33.1 g/dL 32.5-35.6 [facility] MCV Auto (RBC) [Entitic vol] Ordered By: Jackie Fraga on 06-17-2022 MCV (RBC) [Entitic vol] 99.4 fL 83.5-101 [facility] Monocytes Auto (Bld) [#/Vol] Ordered By: Jackie Fraga on 06-17-2022 Monocytes (Bld) [#/Vol] 0.8 10*3/uL 0.0-0.8 [facility] Monocytes/100 WBC Auto (Bld) Ordered By: Jackie Fraga on 06-17-2022 Monocytes/100 WBC (Bld) 13.3 % . [facility] Neutrophils Auto (Bld) [#/Vo l]Ordered By: Jackie Fraga on 06-17-2022 Neutrophils (Bld) [#/Vol] 4.0 10*3/uL 1.8-7.7 [facility] Neutrophils/100 WBC Auto (Bl d)Ordered By: Jackie Fraga on 06-17-2022 Neutrophils/100 WBC (Bld) 65.9 % . [facility] No Panel InformationOrdered By: Jackie Fraga on 06-17-2022 Estimated GFR () > 60 mL/Min [facility] Comment on above: GFR estimated refere nce range: According to KDOQI guidelines, <60 ml/min/1.73m2 is sufficient to diagnose a patient with chronic kidney disease. Pharmacy Creatinine Clearance (Chem 86.01 [facility] Nucleated erythrocytes [Pres ence] in Blood by Automated countOrdered By: Jackie Fraga on 06-17-2022 Nucleated RBC Auto Ql (Bld) 0.2 /100{WBC} 0-0.5 [facility] Platelet mean volume Auto (B ld) [Entitic vol]Ordered By: Jackie Fraga on 06-17-2022 Platelet mean volume (Bld) [Entitic vol] 7.7 fL 6.6-10.1 [facility] Platelets Auto (Bld) [#/Vol] Ordered By: Jackie Fraga on 06-17-2022 Platelets (Bld) [#/Vol] 185 10*3/uL 150-450 [facility] RBC Auto (Bld) [#/Vol]Ordere d By: Jackie Fraga on 06-17-2022 RBC (Bld) [#/Vol] 4.21 10*6/uL 3.90-5.60 [facility] Serum or plasma anion gap de terminationOrdered By: Jackie Fraga on 06-17-2022 Anion gap [Moles/Vol] 10.6 mmol/L 6.0-15.0 [facility] Serum or plasma calcium ledy urement (mass/volume)Ordered By: Jackie Fraga on 06-17-2022 Calcium [Mass/Vol] 8.6 mg/dL 8.2-10.2 [facility] Serum or plasma chloride carlyn surement (moles/volume)Ordered By: Jackei Fraga on 06-17-2022 Chloride [Moles/Vol] 99 mmol/L 95-114 [facility] Serum or plasma glucose ledy urement (mass/volume)Ordered By: Jackie Fraga on 06-17-2022 Glucose [Mass/Vol] 94 mg/dL 70-100 [facility] Comment on above: ADA recommended refe rence rangeRandom Glucose Reference Range is dependent on time and content of last meal. Glucose of more than 200 mg/dL in a nonstressed, ambulatory subject supports the diagnosis of Diabetes Mellitus. Serum or plasma potassium me asurement (moles/volume)Ordered By: Jackie Fraga on 06-17-2022 Potassium [Moles/Vol] 4.1 mmol/L 3.5-5.1 [facility] Serum or plasma sodium measu rement (moles/volume)Ordered By: Jackie Fraga on 06-17-2022 Sodium [Moles/Vol] 127 mmol/L 136-146 [facility] Serum or plasma total carbon dioxide measurement (moles/volume)Ordered By: Jackie Fraga on 06-17-2022 CO2 [Moles/Vol] 21.5 mmol/L 22.0-30.0 [facility] Serum or plasma urea nitroge n measurement (mass/volume)Ordered By: Jackie Fraga on 06-17-2022 Urea nitrogen [Mass/Vol] 10 mg/dL 9- [facility] TSH DL <= 0.005 mIU/L QnOrde red By: Jackie Fraga on 06-17-2022 TSH Qn 4.63 m[IU]/L 0.45-5.33 [facility] WBC Auto (Bld) [#/Vol]Ordere d By: Jackie Fraga on 06-17-2022 WBC (Bld) [#/Vol] 6.1 10*3/uL 4.1-10.5 [facility] Amphetamine Screen Ql (U)Ord ered By: Edward Hinds on 06-16-2022 Amphetamines Ql (U) Negative Negative [facility] Barbiturates [Presence] in U rineOrdered By: Edward Hinds on 06-16-2022 Barbiturates Ql (U) Negative Negative [facility] Benzodiazepines [Presence] i n UrineOrdered By: Edward Hinds on 06-16-2022 Benzodiazepines Ql (U) Negative Negative [facility] Cannabinoids [Presence] in U rine by Screen methodOrdered By: Edward Hinds on 06-16-2022 Cannabinoids Screen Ql (U) Positive Negative [facility] Comment on above: These are unconfirme d results and should not be used for legal purposes. Drug Cut-Off Concentration: AMPH 1000 ng/mL ZUNILDA 200 ng/mL SHIVANI 200 ng/mL COCM 300 ng/mL OP 300 ng/mL PCP 25 ng/mL THC 20 ng/mL Laboratory - Drug toxicology Ordered By: Edward Hinds on 06-16-2022 Opiates Ql (U) Negative Negative [facility] Phencyclidine Screen Ql (U)O rdered By: Edward Hinds on 06-16-2022 Phencyclidine Ql (U) Negative Negative [facility] Urine cocaine detectionOrder ed By: Edward Hinds on 06-16-2022 Cocaine Ql (U) Negative Negative [facility] Activated partial thrombopla stin time (aPTT) in platelet poor plasma by coagulation aOrdered By: Varghese Duval on 06-15-2022 aPTT Coag (PPP) [Time] 35.2 s 25.1-36.5 [facility] Basophils Auto (Bld) [#/Vol] Ordered By: Varghese Duval on 06-15-2022 Basophils (Bld) [#/Vol] 0.1 10*3/uL 0.0-0.2 [facility] Basophils/100 WBC Auto (Bld) Ordered By: Varghese Duval on 06-15-2022 Basophils/100 WBC (Bld) 1.0 % . [facility] Bilirubin Test strip Ql (U)O rdered By: Varghese Duval on 06-15-2022 Bilirubin Ql (U) Negative Negative [facility] Color Auto (U)Ordered By: Tanya Duval on 06-15-2022 Color (U) Yellow Yellow [facility] Creatinine and Glomerular fi ltration rate.predicted panel (S/P/Bld)Ordered By: Varghese Duval on 06-15-2022 Creatinine [Mass/Vol] 0.76 mg/dL 0.64-1.27 [facility] Eosinophils Auto (Bld) [#/Vo l]Ordered By: Varghese Duval on 06-15-2022 Eosinophils (Bld) [#/Vol] 0.3 10*3/uL 0.0-0.45 [facility] Eosinophils/100 WBC Auto (Bl d)Ordered By: Varghese Duval on 06-15-2022 Eosinophils/100 WBC (Bld) 4.9 % . [facility] Erythrocyte distribution wid th Auto (RBC) [Ratio]Ordered By: Varghese Duval on 06-15-2022 Erythrocyte distribution width (RBC) [Ratio] 15.9 % 12.0-14.8 [facility] Estimated glomerular filtrat ion rate (GFR) non- AmericanOrdered By: Varghese Duval on 06-15-2022 GFR/1.73 sq M.predicted among non-blacks MDRD (S/P/Bld) [Vol rate/Area] > 60 mL/Min [facility] Hematocrit Auto (Bld) [Volum e fraction]Ordered By: Varghese Duval on 06-15-2022 Hematocrit (Bld) [Volume fraction] 42.5 % 38.8-50.0 [facility] Hemoglobin [Mass/volume] in BloodOrdered By: Varghese Duval on 06-15-2022 Hemoglobin (Bld) [Mass/Vol] 14.3 g/dL 13.0-17.0 [facility] Ketones Auto test strip (U) [Mass/Vol]Ordered By: Varghese Duval on 06-15-2022 Ketones (U) [Mass/Vol] Negative Negative [facility] Laboratory - CoagulationOrde red By: Varghese Duval on 06-15-2022 PT Coag (PPP) [Time] 10.7 s 9.0-12.9 [facility] Leukocytes [#/volume] correc chris for nucleated erythrocytes in Blood by Automated counOrdered By: Varghese Duval on 06-15-2022 WBC corrected for nucl RBC Auto (Bld) [#/Vol] 5.4 10*3/uL 4.1-10.5 [facility] Lymphocytes Auto (Bld) [#/Vo l]Ordered By: Varghese Duval on 06-15-2022 Lymphocytes (Bld) [#/Vol] 1.0 10*3/uL 1.00-4.8 [facility] Lymphocytes/100 WBC Auto (Bl d)Ordered By: Varghese Duval on 06-15-2022 Lymphocytes/100 WBC (Bld) 19.3 % . [facility] MCH Auto (RBC) [Entitic mass ]Ordered By: Varghese Duval on 06-15-2022 MCH (RBC) [Entitic mass] 33.2 pg 27.5-35.2 [facility] MCHC Auto (RBC) [Mass/Vol]Or dered By: Varghese Duval on 06-15-2022 MCHC (RBC) [Mass/Vol] 33.5 g/dL 32.5-35.6 [facility] MCV Auto (RBC) [Entitic vol] Ordered By: Varghese Duval on 06-15-2022 MCV (RBC) [Entitic vol] 98.9 fL 83.5-101 [facility] Monocytes Auto (Bld) [#/Vol] Ordered By: Varghese Duval on 06-15-2022 Monocytes (Bld) [#/Vol] 0.5 10*3/uL 0.0-0.8 [facility] Monocytes/100 WBC Auto (Bld) Ordered By: Varghese Duval on 06-15-2022 Monocytes/100 WBC (Bld) 8.8 % . [facility] Neutrophils Auto (Bld) [#/Vo l]Ordered By: Varghese Duval on 06-15-2022 Neutrophils (Bld) [#/Vol] 3.6 10*3/uL 1.8-7.7 [facility] Neutrophils/100 WBC Auto (Bl d)Ordered By: Varghese Duval on 06-15-2022 Neutrophils/100 WBC (Bld) 66.0 % . [facility] Nitrite Test strip Ql (U)Ord ered By: Varghese Duval on 06-15-2022 Nitrite Ql (U) Negative Negative [facility] No Panel InformationOrdered By: Varghese Duval on 06-15-2022 Estimated GFR () > 60 mL/Min [facility] Comment on above: GFR estimated refere nce range: According to KDOQI guidelines, <60 ml/min/1.73m2 is sufficient to diagnose a patient with chronic kidney disease. Pharmacy Creatinine Clearance (Chem N/A [facility] Nucleated erythrocytes [Pres ence] in Blood by Automated countOrdered By: Varghese Duval on 06-15-2022 Nucleated RBC Auto Ql (Bld) 0.2 /100{WBC} 0-0.5 [facility] Platelet mean volume Auto (B ld) [Entitic vol]Ordered By: Varghese Duval on 06-15-2022 Platelet mean volume (Bld) [Entitic vol] 7.4 fL 6.6-10.1 [facility] Platelet poor plasma interna tional normalized ratio (INR) by coagulation assay (relatOrdered By: Varghese Duval on 06-15-2022 INR Coag (PPP) [Relative time] 0.9 {INR} [facility] Comment on above: INR Therapeutic Rang e A) Pre- and Peroperative OAT started two weeks before surgery. NOT HIP SURGERY: 1.5 - 2.5 HIP SURGERY: 2 - 3B) Primary and secondary prevention of venous THROMBOSIS: 2 - 3C) Active venous thrombosis, pulmonary embolismand prevention of recurrent venous thrombosis: 2 - 3D) Prevention of arterial thromboembolismincluding patients with mechanical heart valves: 3 - 4.5 Platelets Auto (Bld) [#/Vol] Ordered By: Varghese Duval on 06-15-2022 Platelets (Bld) [#/Vol] 212 10*3/uL 150-450 [facility] Protein Auto test strip (U) [Mass/Vol]Ordered By: Varghese Duval on 06-15-2022 Protein (U) [Mass/Vol] Negative Negative [facility] RBC Auto (Bld) [#/Vol]Ordere d By: Varghese Duval on 06-15-2022 RBC (Bld) [#/Vol] 4.30 10*6/uL 3.90-5.60 [facility] Serum or plasma anion gap de terminationOrdered By: Varghese Duval on 06-15-2022 Anion gap [Moles/Vol] 14.4 mmol/L 6.0-15.0 [facility] Serum or plasma calcium ledy urement (mass/volume)Ordered By: Varghese Duval on 06-15-2022 Calcium [Mass/Vol] 8.5 mg/dL 8.2-10.2 [facility] Serum or plasma chloride carlyn surement (moles/volume)Ordered By: Varghese Duval on 06-15-2022 Chloride [Moles/Vol] 98 mmol/L 95-114 [facility] Serum or plasma glucose ledy urement (mass/volume)Ordered By: Varghese Duval on 06-15-2022 Glucose [Mass/Vol] 74 mg/dL 70-100 [facility] Comment on above: ADA recommended refe rence rangeRandom Glucose Reference Range is dependent on time and content of last meal. Glucose of more than 200 mg/dL in a nonstressed, ambulatory subject supports the diagnosis of Diabetes Mellitus. Serum or plasma potassium me asurement (moles/volume)Ordered By: Varghese Duval on 06-15-2022 Potassium [Moles/Vol] 4.2 mmol/L 3.5-5.1 [facility] Serum or plasma sodium measu rement (moles/volume)Ordered By: Varghese Duval on 06-15-2022 Sodium [Moles/Vol] 129 mmol/L 136-146 [facility] Serum or plasma total carbon dioxide measurement (moles/volume)Ordered By: Varghese Duval on 06-15-2022 CO2 [Moles/Vol] 20.8 mmol/L 22.0-30.0 [facility] Serum or plasma urea nitroge n measurement (mass/volume)Ordered By: Varghese Duval on 06-15-2022 Urea nitrogen [Mass/Vol] 4 mg/dL 9-23 [facility] Specific gravity Auto test s trip (U) [Rel density]Ordered By: Varghese Duval on 06-15-2022 Specific gravity (U) [Rel density] 1.008 1.001-1.030 [facility] Urine clarity by refractomet ry automatedOrdered By: Varghese Duval on 06-15-2022 Clarity Refractometry automated (U) Clear Clear [facility] Urine glucose measurement by automated test strip (mass/volume)Ordered By: Varghese Duval 06-15-2022 Glucose Auto test strip (U) [Mass/Vol] Normal mg/dL Normal [facility] Urine hemoglobin detection b y automated test stripOrdered By: Varghese Duval on 06-15-2022 Hemoglobin Auto test strip Ql (U) Negative Negative [facility] Urine leukocyte esterase det ection by automated test stripOrdered By: Varghese Duval 06-15-2022 Leukocyte esterase Auto test strip Ql (U) Negative Negative [facility] Urobilinogen Auto test strip (U) [Mass/Vol]Ordered By: Varghese Duval on 06-15-2022 Urobilinogen (U) [Mass/Vol] Normal mg/dL Normal [facility] WBC Auto (Bld) [#/Vol]Ordere d By: Varghese Duval on 06-15-2022 WBC (Bld) [#/Vol] 5.4 10*3/uL 4.1-10.5 [facility] pH Auto test strip (U)Ordere d By: Varghese Duval on 06-15-2022 pH (U) 5.5 [pH] 5.0-9.[address] [facility] [address] chest w conon 06-01-2022 CT chest w con [facility] [employer] Other CT chest w con [facility] [employer] Other CT chest w con [address] [place] [address] [employer] [place] [address] No rt [employer] Other CT chest w con CT Scan Report [employer] Other CT chest w con Signed [employer] Other CT chest w con Patient: Gustavo Echols N MR#: [id number] [employer] Other CT chest w con [address] chest w con : 1965 Acct:[id number] [employer] Other CT chest w con Age/Sex: 57 / M ADM Date: 06/01/[address] [address] chest w con Loc: CT Room: Type: [facility] [employer] Other CT chest w con Attending Dr: Rachid Chase MD [employer] Other CT chest w con Copies to: Rachid whitlock MD [employer] Other CT chest w con Ordering Provider: Narinder Chase MD [employer] Other CT chest w con Date of Service: 06/01/[address] [employer] [address] chest w con CT/CT chest w con: C34.[address] [employer] Other [address] chest w con CT chest withcontrast [employer] Other CT chest w con TECHNIQUE: Axial adore ging with 2-D reconstruction. 83 cc of [id number] CT exam was performed [employer] Other CT chest w con using one or more th e following dose reduction techniques: Automated exposure control, adjustment of [employer] Other CT chest w con the MA and/or Kv according to patient size, or use of the iterative reconstruction technique. [employer] Other CT chest w con History: History of lung cancer. Chest tightness. Shortness of breath. [employer] Other CT chest w con COMPARISON: 04/10/[address] [employer] [address] chest w con No thyroid abnormali ty [id number] present on the left. [employer] Other CT chest w con Central airway is patent. [employer] Other CT chest w con No esophageal abnormality identified. [employer] Other CT chest w con Heart is not enlarge d. No pericardial effusion is seen. [employer] Other CT chest w con Nonenlarged mediasti nal lymph nodes identified. No hilar mass or adenopathy is seen. [employer] Other CT chest w con No thoracic aortic aneurysm is seen. [employer] Other CT chest w con No lung nodules identified. [employer] Other CT chest w con No infiltrate or congestion identified. Developing medial right middle lobe atelectasis. Large [employer] Other CT chest w con right pleural effusi on redemonstrated. This is similar to prior examination. No pneumothorax seen. [employer] Other CT chest w con Emphysematous change s redemonstrated. [employer] Other CT chest w con No chest wall abnormality seen. The bony structures are intact. [employer] Other CT chest w con Images of the upper abdomen are noncontributory. [employer] Other CT chest w con C T/CT chest w con [employer] Other CT chest w con IMPRESSION: Developi ng medial right middle lobe atelectasis. Continued large right pleural [employer] Other CT chest w con effusion. Emphysema. [employer] Other CT chest w con Impression dictated by: Franklin Gomes M.D.06/01/2022 3:20 PM [employer] Other CT chest w con Dictation Location: [place] [address] [employer] [address] chest w con Transcribed By: PWS 06/01/22 [address] [address] chest w con Dictated By: Franklin Gomes DO 06/01/[address] [address] chest w con Signed By: [employer] Other CT chest w con 06/01/22 1520 [employer] Other Creatinine (Bld) [Mass/Vol]O rdered By: Rachid Chase on 06-01-2022 Creatinine [Mass/Vol] 0.8 mg/dL 0.6-1.3 [facility] Comment on above: ER/ESD physician is notified/shown all ISTAT results.Critical values may be confirmed by laboratory testing ifdeemed necessary by ER attending doctor. No Panel InformationOrdered By: Rachid Chase on 06-01-2022 POC Estimated GFR > 60 [facility] Comment on above: GFR estimated refere nce range: According to KDOQI guidelines, <60 ml/min/1.73m2 is sufficient to diagnose a patient with chronic kidney disease. POC Estimated GFR Non- Amer > 60 [facility] Activated partial thrombopla stin time (aPTT) in platelet poor plasma by coagulation aOrdered By: Estela Varma on 04-18-2022 aPTT Coag (PPP) [Time] 44.4 s 25.1-36.5 [facility] Laboratory - CoagulationOrde red By: Estela Varma on 04-18-2022 PT Coag (PPP) [Time] 11.2 s 9.0-12.9 [facility] Platelet poor plasma interna tional normalized ratio (INR) by coagulation assay (relatOrdered By: Estela Varma on 04-18-2022 INR Coag (PPP) [Relative time] 1.0 {INR} [facility] Comment on above: INR Therapeutic Rang e A) Pre- and Peroperative OAT started two weeks before surgery. NOT HIP SURGERY: 1.5 - 2.5 HIP SURGERY: 2 - 3B) Primary and secondary prevention of venous THROMBOSIS: 2 - 3C) Active venous thrombosis, pulmonary embolismand prevention of recurrent venous thrombosis: 2 - 3D) Prevention of arterial thromboembolismincluding patients with mechanical heart valves: 3 - 4.5 Platelets Auto (Bld) [#/Vol] Ordered By: Estela Varma on 04-18-2022 Platelets (Bld) [#/Vol] 158 10*3/uL 150-450 [facility] Bacterial blood cultureOrder ed By: Tez Irene on 04-15-2022 Bacteria identified Cx Nom (Bld) NO GROWTH 5 DAYS [facility] Bacteria identified Anaer cx Nom (Unsp spec)Ordered By: Tez Irene on 04-14-2022 Anaerobic microbial culture No Anaerobes Isolated 3 Days [facility] ABO and Rh group post transf usion reaction Nom (Bld)Ordered By: Tez Irene on 04-12-2022 Microscopic observation Gram stain Nom (Unsp spec) [facility] Aerobic cultureOrdered By: Krystina Irene on 04-11-2022 Bacteria identified Aer cx Nom (Unsp spec) No Growth 2 Days [facility] Anaerobic cultureOrdered By: Tez Irene on 04-11-2022 Bacteria identified Anaer cx Nom (Unsp spec) No Anaerobes Isolated 3 Days [facility] Body fluid differential cell countOrdered By: Tez Irene on 04-11-2022 Differential panel (Body fld) 4 % [facility] Comment on above: The reference interv al and other method performance specifications have not been established for this body fluid. The test result must be integrated into the clinical context for interpretation. Differential panel (Body fld) 0 % [facility] Comment on above: The reference interv al and other method performance specifications have not been established for this body fluid. The test result must be integrated into the clinical context for interpretation. Body fluid protein measureme nt (mass/volume)Ordered By: Tez Irene on 04-11-2022 Protein (Body fld) [Mass/Vol] 3.8 g/dL [facility] Cells Counted Total [#] in B sarah fluidOrdered By: Tez Irene on 04-11-2022 Cells Counted Total (Body fld) [#] 1147 /uL [facility] Comment on above: The reference interv al and other method performance specifications have not been established for this body fluid. The test result must be integrated into the clinical context for interpretation. Color of Spun Body fluidOrde red By: Tez Irene on 04-11-2022 Color (Spun body fld) Straw [facility] Comment on above: The reference interv al and other method performance specifications have not been established for this body fluid. The test result must be integrated into the clinical context for interpretation. Determination of appearance of body fluidOrdered By: Tez Irene on 04-11-2022 Appearance (Body fld) Hazy [facility] Comment on above: The reference interv al and other method performance specifications have not been established for this body fluid. The test result must be integrated into the clinical context for interpretation. Erythrocytes [#/volume] in B sarah fluid by Automated countOrdered By: Tez Irene on 04-11-2022 RBC Auto (Body fld) [#/Vol] 35906 mm^3 [facility] Comment on above: The reference interv al and other method performance specifications have not been established for this body fluid. The test result must be integrated into the clinical context for interpretation. Evaluation of color of body fluidOrdered By: Tez Irene on 04-11-2022 Color (Body fld) Straw [facility] Comment on above: The reference interv al and other method performance specifications have not been established for this body fluid. The test result must be integrated into the clinical context for interpretation. Gram stain for investigation of transfusion reactionOrdered By: Tez Irene on 04-11-2022 Microscopic observation Gram stain Nom (Unsp spec) [facility] Lactate dehydrogenase measur ement (enzymatic activity/volume)Ordered By: Tez Irene on 04-11-2022 LDH (Unsp spec) [Catalytic activity/Vol] 88 [IU]/mL [facility] Comment on above: No reference range e stablished LDH (Unsp spec) [Catalytic activity/Vol] 100 U/L 45-190 [facility] Manual body fluid eosinophil s/100 leukocytesOrdered By: Tez Irene on 04-11-2022 Eosinophils/100 WBC Manual cnt (Body fld) 0 /100{WBC} 0-3 [facility] Manual body fluid lymphocyte s/100 leukocytesOrdered By: Tez Irene on 04-11-2022 Lymphocytes/100 WBC Manual cnt (Body fld) 61 % [facility] Comment on above: The reference interv al and other method performance specifications have not been established for this body fluid. The test result must be integrated into the clinical context for interpretation. Neutrophils/100 WBC Manual c nt (Body fld)Ordered By: Tez Irene on 04-11-2022 Neutrophils/100 WBC (Body fld) 35 % [facility] Comment on above: The reference interv al and other method performance specifications have not been established for this body fluid. The test result must be integrated into the clinical context for interpretation. Troponin I.cardiac [Mass/vol ume] in Serum or Plasma by High sensitivity methodOrdered By: Tez Irene on 04-11-2022 Troponin I.cardiac High sensitivity method [Mass/Vol] 5 pg/mL 0-20 [facility] Albumin [Mass/volume] in Ser um or PlasmaOrdered By: Kali Longo on 04-10-2022 Albumin [Mass/Vol] 3.3 g/dL 3.2-5.5 [facility] Albumin [Mass/volume] in Ser um or PlasmaOrdered By: Estela Varma on 04-10-2022 Albumin [Mass/Vol] 3.4 g/dL 3.2-5.5 [facility] Bacterial blood cultureOrder ed By: Tez Irene on 04-10-2022 Bacteria identified Cx Nom (Bld) NO GROWTH 5 DAYS [facility] Basophils Auto (Bld) [#/Vol] Ordered By: Kali Longo on 04-10-2022 Basophils (Bld) [#/Vol] 0.1 10*3/uL 0.0-0.2 [facility] Basophils Auto (Bld) [#/Vol] Ordered By: Estela Varma on 04-10-2022 Basophils (Bld) [#/Vol] 0.1 10*3/uL 0.0-0.2 [facility] Basophils/100 WBC Auto (Bld) Ordered By: Kali Longo on 04-10-2022 Basophils/100 WBC (Bld) 1.0 % . [facility] Basophils/100 WBC Auto (Bld) Ordered By: Estela Varma on 04-10-2022 Basophils/100 WBC (Bld) 0.9 % . [facility] Creatinine and Glomerular fi ltration rate.predicted panel (S/P/Bld)Ordered By: Kali Longo on 04-10-2022 Creatinine [Mass/Vol] 0.86 mg/dL 0.64-1.27 [facility] Creatinine and Glomerular fi ltration rate.predicted panel (S/P/Bld)Ordered By: Estela Varma on 04-10-2022 Creatinine [Mass/Vol] 0.92 mg/dL 0.64-1.27 [facility] Eosinophils Auto (Bld) [#/Vo l]Ordered By: Kali Longo on 04-10-2022 Eosinophils (Bld) [#/Vol] 0.1 10*3/uL 0.0-0.45 [facility] Eosinophils Auto (Bld) [#/Vo l]Ordered By: Estela Varma on 04-10-2022 Eosinophils (Bld) [#/Vol] 0.2 10*3/uL 0.0-0.45 [facility] Eosinophils/100 WBC Auto (Bl d)Ordered By: Kali Longo on 04-10-2022 Eosinophils/100 WBC (Bld) 1.5 % . [facility] Eosinophils/100 WBC Auto (Bl d)Ordered By: Estela Varma on 04-10-2022 Eosinophils/100 WBC (Bld) 2.9 % . [facility] Erythrocyte distribution wid th Auto (RBC) [Ratio]Ordered By: Kali Longo on 04-10-2022 Erythrocyte distribution width (RBC) [Ratio] 14.1 % 12.0-14.8 [facility] Erythrocyte distribution wid th Auto (RBC) [Ratio]Ordered By: Estela Varma on 04-10-2022 Erythrocyte distribution width (RBC) [Ratio] 14.6 % 12.0-14.8 [facility] Estimated glomerular filtrat ion rate (GFR) non- AmericanOrdered By: Kali Longo on 04-10-2022 GFR/1.73 sq M.predicted among non-blacks MDRD (S/P/Bld) [Vol rate/Area] > 60 mL/Min [facility] Estimated glomerular filtrat ion rate (GFR) non- AmericanOrdered By: Estela Varma on 04-10-2022 GFR/1.73 sq M.predicted among non-blacks MDRD (S/P/Bld) [Vol rate/Area] > 60 mL/Min [facility] Globulin Calc (S) [Mass/Vol] Ordered By: Kali Longo on 04-10-2022 Globulin (S) [Mass/Vol] 3.1 g/dL [facility] Globulin Calc (S) [Mass/Vol] Ordered By: Estela Varma on 04-10-2022 Globulin (S) [Mass/Vol] 3.1 g/dL [facility] Hematocrit Auto (Bld) [Volum e fraction]Ordered By: Kali Longo on 04-10-2022 Hematocrit (Bld) [Volume fraction] 44.7 % 38.8-50.0 [facility] Hematocrit Auto (Bld) [Volum e fraction]Ordered By: Estela Varma on 04-10-2022 Hematocrit (Bld) [Volume fraction] 46.1 % 38.8-50.0 [facility] Hemoglobin [Mass/volume] in BloodOrdered By: Kali Longo on 04-10-2022 Hemoglobin (Bld) [Mass/Vol] 15.2 g/dL 13.0-17.0 [facility] Hemoglobin [Mass/volume] in BloodOrdered By: Estela Varma on 04-10-2022 Hemoglobin (Bld) [Mass/Vol] 15.5 g/dL 13.0-17.0 [facility] - Chemistry and C hemistry - challengeOrdered By: Kali Longo on 04-10-2022 Natriuretic peptide B (Bld) [Mass/Vol] 19.0 pg/mL 5-100 [facility] - Hematology and Cell countsOrdered By: Kali Longo on 04-10-2022 Nucleated RBC/100 WBC (Bld) [Ratio] 0.1 % 0-0.5 [facility] - Hematology and Cell countsOrdered By: Estela Varma on 04-10-2022 Nucleated RBC/100 WBC (Bld) [Ratio] 0.1 % 0-0.5 [facility] Leukocytes [#/volume] in Blo od by Automated countOrdered By: Kali Longo on 04-10-2022 WBC (Bld) [#/Vol] 6.1 10*3/uL 4.5-11.0 [facility] Leukocytes [#/volume] in Blo od by Automated countOrdered By: Estela Varma on 04-10-2022 WBC (Bld) [#/Vol] 6.3 10*3/uL 4.5-11.0 [facility] Lymphocytes Auto (Bld) [#/Vo l]Ordered By: Kali Longo on 04-10-2022 Lymphocytes (Bld) [#/Vol] 0.9 10*3/uL 1.00-4.8 [facility] Lymphocytes Auto (Bld) [#/Vo l]Ordered By: Estela Varma on 04-10-2022 Lymphocytes (Bld) [#/Vol] 1.0 10*3/uL 1.00-4.8 [facility] Lymphocytes/100 WBC Auto (Bl d)Ordered By: Kali Longo on 04-10-2022 Lymphocytes/100 WBC (Bld) 14.2 % . [facility] Lymphocytes/100 WBC Auto (Bl d)Ordered By: Estela Varma on 04-10-2022 Lymphocytes/100 WBC (Bld) 16.2 % . [facility] MCH Auto (RBC) [Entitic mass ]Ordered By: Kali Longo on 04-10-2022 MCH (RBC) [Entitic mass] 32.9 pg 27.5-35.2 [facility] MCH Auto (RBC) [Entitic mass ]Ordered By: Estela Varma on 04-10-2022 MCH (RBC) [Entitic mass] 32.6 pg 27.5-35.2 [facility] MCHC Auto (RBC) [Mass/Vol]Or dered By: Kali Longo on 04-10-2022 MCHC (RBC) [Mass/Vol] 33.9 g/dL 32.5-35.6 [facility] MCHC Auto (RBC) [Mass/Vol]Or dered By: Estela Varma on 04-10-2022 MCHC (RBC) [Mass/Vol] 33.6 g/dL 32.5-35.6 [facility] MCV Auto (RBC) [Entitic vol] Ordered By: Kali Longo on 04-10-2022 MCV (RBC) [Entitic vol] 96.9 fL 83.5-101 [facility] MCV Auto (RBC) [Entitic vol] Ordered By: Estela Varma on 04-10-2022 MCV (RBC) [Entitic vol] 97.2 fL 83.5-101 [facility] Monocytes Auto (Bld) [#/Vol] Ordered By: Kali Longo on 04-10-2022 Monocytes (Bld) [#/Vol] 0.6 10*3/uL 0.0-0.8 [facility] Monocytes Auto (Bld) [#/Vol] Ordered By: Estela Varma on 04-10-2022 Monocytes (Bld) [#/Vol] 0.5 10*3/uL 0.0-0.8 [facility] Monocytes/100 WBC Auto (Bld) Ordered By: Kali Longo on 04-10-2022 Monocytes/100 WBC (Bld) 9.9 % . [facility] Monocytes/100 WBC Auto (Bld) Ordered By: Estela Varma on 04-10-2022 Monocytes/100 WBC (Bld) 8.6 % . [facility] Neutrophils Auto (Bld) [#/Vo l]Ordered By: Kali Longo on 04-10-2022 Neutrophils (Bld) [#/Vol] 4.5 10*3/uL 1.8-7.7 [facility] Neutrophils Auto (Bld) [#/Vo l]Ordered By: Estela Varma on 04-10-2022 Neutrophils (Bld) [#/Vol] 4.5 10*3/uL 1.8-7.7 [facility] Neutrophils/100 WBC Auto (Bl d)Ordered By: Kali Longo on 04-10-2022 Neutrophils/100 WBC (Bld) 73.4 % . [facility] Neutrophils/100 WBC Auto (Bl d)Ordered By: Estela Varma on 04-10-2022 Neutrophils/100 WBC (Bld) 71.4 % . [facility] No Panel InformationOrdered By: Kali Longo on 04-10-2022 D-Dimer Quantitative (PE/DVT) 529 ng/mL 0-243 [facility] Comment on above: The reference range for D-dimer is <243 ng/mL D-dimer units.D-dimer results must be used in conjunction with a clinicalpretest probability (PTP) assessment model for deep veinthrombosis (DVT) and pulmonary embolism (PE). Results <230ng/mL d-dimer units can be used as a negative predictor inpatients with low or moderate probability for DVT/PE.Results above the exclusion threshold of 230 ng/ml D-dimerunits for DVT/PE may indicate the need for furtherdiagnostic testing.D-Dimer can be increased in hospitalized patients due toco-morbid conditions. Estimated GFR () > 60 mL/Min [facility] Comment on above: GFR estimated refere nce range: According to KDOQI guidelines, <60 ml/min/1.73m2 is sufficient to diagnose a patient with chronic kidney disease. Pharmacy Creatinine Clearance (Chem 92.25 [facility] No Panel InformationOrdered By: Estela Varma on 04-10-2022 Estimated GFR () > 60 mL/Min [facility] Comment on above: GFR estimated refere nce range: According to KDOQI guidelines, <60 ml/min/1.73m2 is sufficient to diagnose a patient with chronic kidney disease. Pharmacy Creatinine Clearance (Chem 89.21 [facility] Platelet mean volume Auto (B ld) [Entitic vol]Ordered By: Kali Longo on 04-10-2022 Platelet mean volume (Bld) [Entitic vol] 7.0 fL 6.6-10.1 [facility] Platelet mean volume Auto (B ld) [Entitic vol]Ordered By: Estela Varma on 04-10-2022 Platelet mean volume (Bld) [Entitic vol] 7.4 fL 6.6-10.1 [facility] Platelets Auto (Bld) [#/Vol] Ordered By: Kali Longo on 04-10-2022 Platelets (Bld) [#/Vol] 242 10*3/uL 150-450 [facility] Platelets Auto (Bld) [#/Vol] Ordered By: Estela Varma on 04-10-2022 Platelets (Bld) [#/Vol] 239 10*3/uL 150-450 [facility] Protein [Mass/volume] in Ser um or PlasmaOrdered By: Kali Longo on 04-10-2022 Protein [Mass/Vol] 6.4 g/dL 6.1-7.9 [facility] Protein [Mass/volume] in Ser um or PlasmaOrdered By: Estela Varma on 04-10-2022 Protein [Mass/Vol] 6.5 g/dL 6.1-7.9 [facility] RBC Auto (Bld) [#/Vol]Ordere d By: Kali Longo on 04-10-2022 RBC (Bld) [#/Vol] 4.61 10*6/uL 3.90-5.60 [facility] RBC Auto (Bld) [#/Vol]Ordere d By: Esteal Varma on 04-10-2022 RBC (Bld) [#/Vol] 4.75 10*6/uL 3.90-5.60 [facility] Serum or plasma alanine glynn otransferase measurement without P-5'-P (enzymatic activiOrdered By: Kali Longo on 04-10-2022 ALT No additional P-5'-P [Catalytic activity/Vol] 13 U/L [facility] Serum or plasma alanine glynn otransferase measurement without P-5'-P (enzymatic activiOrdered By: Estela Varma on 04-10-2022 ALT No additional P-5'-P [Catalytic activity/Vol] 14 U/L [facility] Serum or plasma albumin/glob ulin mass ratioOrdered By: Kali Longo on 04-10-2022 Albumin/Globulin [Mass ratio] 1.1 {ratio} [facility] Serum or plasma albumin/glob ulin mass ratioOrdered By: Estela Varma on 04-10-2022 Albumin/Globulin [Mass ratio] 1.1 {ratio} [facility] Serum or plasma alkaline abhijit sphatase measurement (enzymatic activity/volume)Ordered By: Kali Longo on 04-10-2022 ALP [Catalytic activity/Vol] 127 U/L [facility] Serum or plasma alkaline abhijit sphatase measurement (enzymatic activity/volume)Ordered By: Estela Varma on 04-10-2022 ALP [Catalytic activity/Vol] 128 U/L [facility] Serum or plasma anion gap de terminationOrdered By: Kali Longo on 04-10-2022 Anion gap [Moles/Vol] 15.8 mmol/L 6.0-15.0 [facility] Serum or plasma anion gap de terminationOrdered By: Estela Varma on 04-10-2022 Anion gap [Moles/Vol] 17.3 mmol/L 6.0-15.0 [facility] Serum or plasma aspartate am inotransferase measurement (enzymatic activity/volume)Ordered By: Kali Longo on 04-10-2022 AST [Catalytic activity/Vol] 19 U/L [facility] Serum or plasma aspartate am inotransferase measurement (enzymatic activity/volume)Ordered By: Estela Varma on 04-10-2022 AST [Catalytic activity/Vol] 19 U/L [facility] Serum or plasma calcium ledy urement (mass/volume)Ordered By: Kali Longo on 04-10-2022 Calcium [Mass/Vol] 8.5 mg/dL 8.2-10.2 [facility] Serum or plasma calcium ledy urement (mass/volume)Ordered By: Estela Varma on 04-10-2022 Calcium [Mass/Vol] 8.5 mg/dL 8.2-10.2 [facility] Serum or plasma carcinoembry onic antigen measurement (mass/volume)Ordered By: Estela Varma on 04-10-2022 Carcinoembryonic Ag [Mass/Vol] 10.5 ng/mL 0.0-3.0 [facility] Serum or plasma chloride carlyn surement (moles/volume)Ordered By: Kali Longo on 04-10-2022 Chloride [Moles/Vol] 95 mmol/L 95-114 [facility] Serum or plasma chloride carlyn surement (moles/volume)Ordered By: Estela Varma on 04-10-2022 Chloride [Moles/Vol] 98 mmol/L 95-114 [facility] Serum or plasma glucose ledy urement (mass/volume)Ordered By: Kali Longo on 04-10-2022 Glucose [Mass/Vol] 75 mg/dL 70-100 [facility] Comment on above: ADA recommended refe rence rangeRandom Glucose Reference Range is dependent on time and content of last meal. Glucose of more than 200 mg/dL in a nonstressed, ambulatory subject supports the diagnosis of Diabetes Mellitus. Serum or plasma glucose ledy urement (mass/volume)Ordered By: Estela Varma on 04-10-2022 Glucose [Mass/Vol] 73 mg/dL 70-100 [facility] Comment on above: ADA recommended refe rence rangeRandom Glucose Reference Range is dependent on time and content of last meal. Glucose of more than 200 mg/dL in a nonstressed, ambulatory subject supports the diagnosis of Diabetes Mellitus. Serum or plasma potassium me asurement (moles/volume)Ordered By: Kali Longo on 04-10-2022 Potassium [Moles/Vol] 4.2 mmol/L 3.5-5.1 [facility] Serum or plasma potassium me asurement (moles/volume)Ordered By: Estela Varma on 04-10-2022 Potassium [Moles/Vol] 4.0 mmol/L 3.5-5.1 [facility] Serum or plasma sodium measu rement (moles/volume)Ordered By: Kali Longo on 04-10-2022 Sodium [Moles/Vol] 130 mmol/L 136-146 [facility] Serum or plasma sodium measu rement (moles/volume)Ordered By: Estela Varma on 04-10-2022 Sodium [Moles/Vol] 131 mmol/L 136-146 [facility] Serum or plasma total biliru bin measurement (mass/volume)Ordered By: Kali Longo on 04-10-2022 Bilirubin [Mass/Vol] 0.6 mg/dL 0.3-1.2 [facility] Serum or plasma total biliru bin measurement (mass/volume)Ordered By: Estela Varma on 04-10-2022 Bilirubin [Mass/Vol] 0.7 mg/dL 0.3-1.2 [facility] Serum or plasma total carbon dioxide measurement (moles/volume)Ordered By: Kali Longo on 04-10-2022 CO2 [Moles/Vol] 23.4 mmol/L 22.0-30.0 [facility] Serum or plasma total carbon dioxide measurement (moles/volume)Ordered By: Estela Varma on 04-10-2022 CO2 [Moles/Vol] 19.7 mmol/L 22.0-30.0 [facility] Serum or plasma urea nitroge n measurement (mass/volume)Ordered By: Kali Longo on 04-10-2022 Urea nitrogen [Mass/Vol] 7 mg/dL 02-03 [facility] Serum or plasma urea nitroge n measurement (mass/volume)Ordered By: Estela Varam on 04-10-2022 Urea nitrogen [Mass/Vol] 7 mg/dL 02-03 [facility] TSH DL <= 0.005 mIU/L QnOrde red By: Estela Varma on 04-10-2022 TSH Qn 2.57 m[IU]/L 0.45-5.33 [facility] Troponin I.cardiac [Mass/vol ume] in Serum or Plasma by High sensitivity methodOrdered By: Kali Longo on 04-10-2022 Troponin I.cardiac High sensitivity method [Mass/Vol] 5 pg/mL 0 [facility] Creatinine and Glomerular fi ltration rate.predicted panel (S/P/Bld)Ordered By: Estela Varma on 01-03-2022 Creatinine [Mass/Vol] 0.69 mg/dL 0.64-1.27 [facility] Estimated glomerular filtrat ion rate (GFR) non- AmericanOrdered By: Estela Varma on 01-03-2022 GFR/1.73 sq M.predicted among non-blacks MDRD (S/P/Bld) [Vol rate/Area] > 60 mL/Min [facility] No Panel InformationOrdered By: Estela Varma on 01-03-2022 Estimated GFR () > 60 mL/Min [facility] Comment on above: GFR estimated refere nce range: According to KDOQI guidelines, <60 ml/min/1.73m2 is sufficient to diagnose a patient with chronic kidney disease. Pharmacy Creatinine Clearance (Chem 122.86 [facility] Serum or plasma urea nitroge n measurement (mass/volume)Ordered By: Estela Varma on 01-03-2022 Urea nitrogen [Mass/Vol] 3 mg/dL 02-03 [facility] Office Visit (Cardiology)on 11-29-2021 Follow-up visit Diagnoses/Problems Assessed Lung cancer (162.9) (C34.90) Chest pain (786.50) (R07.9) Former smoker (V15.82) (Z87.891) quit 2020 1ppd Body mass index (BMI) of 20.0 to 20.9 in adult (V85.1) (Z68.20) COPD (chronic obstructive pulmonary disease) (496) (J44.9) Orders Health Maintenance Depression Follow-up Visit Outpatient Follow-up Status: Complete Done: [id number] SocHx: Former smoker Tobacco Use Screening; Status:Complete; Done: [id number] Patient Instructions By signing my name below, I, Farhat Ackerman RN ,Scribe, attest that this documentation has been prepared under the direction and in the presence of Dr. Lukas Oliveira DO. All medical record entries made by the Scribe were at my direction and personally dictated by me. I have reviewed the chart and agree that the record accurately reflects my personal performance of the history, physical exam, discussion and plan. Please bring all medicines, vitamins, and herbal supplements with you when you come to the office. Prescriptions will not be filled unless you are compliant with your follow up appointments or have a follow up appointment scheduled as per instruction of your physician. Refills should be requested at the time of your visit. Follow up as needed only Healthy eating habits discussed for weight gain, due to recent weight loss Chief Complaint Follow up Heart Cath results. 56-year-old Afro-[place]ong[place]ian gentleman returns with chief complaints of chest discomfort and dyspnea, also admits to difficulty with swallowing foods and is transitioned himself to potato chips and beef jerky only. He is originally seen by myself in consultation for chest pain in August 2021, cardiac catheterization revealed normal coronary arteries and normal left ventricular function. Patient has a history of small cell lung cancer treated with chemo/radiation therapy dating back to 2019, continues to follow with oncology with no reported recurrence per the patient. Notably over the course of this past year from August through November he has lost 7 pounds likely secondary to severe depression ( is left him) and he has no counseling he feels comfortable with at this time. He no longer smokes. He does have reportedly progressive emphysema with the above-mentioned dyspnea/chest congestion that he mentions. He has no cardiac complaints, and again has normal LV function and normal coronary arteries from catheterization performed this year Recommendations: We did career technical counselor him on seeking further assistance in regards to his depression, increasing protein intake given his weight loss and seeking out further either ENT or pulmonary evaluation for his swallowing difficulty. We will follow-up on as-needed basis Surgical History Problems History of Arm surgery History of Complete colonoscopy Managed By: Nilesh Schulte MD 2016 History of Vasectomy History of Venous access port placement Current Meds Medication NameInstruction Advair Diskus 250-50 MCG/ACT Inhalation Aerosol Powder Breath ActivatedINHALE 1 PUFF EVERY 12 HOURS. amLODIPine Besylate 5 MG Oral TabletTake 1 tablet daily Aspirin 81 MG Oral Tablet Delayed ReleaseTAKE 1 TABLET DAILY DIRECTED. buPROPion HCl - 100 MG Oral TabletTAKE 1 TABLET 3 times daily Metoprolol Tartrate 25 MG Oral TabletTAKE 0.5 TABLET Twice daily Nitroglycerin 0.4 MG Sublingual Tablet SublingualPLACE 1 TABLET UNDER THE TONGUE EVERY 5 MINUTES FOR UP TO 3 DOSES NEEDED FOR CHEST PAIN.CALL 911 IF PAIN PERSISTS. Nitroglycerin 0.4 MG/HR Transdermal Patch 24 HourAPPLY PATCH FOR 12 TO 14 HOURS DAILY, THEN REMOVE QUEtiapine Fumarate 100 MG Oral Tablet1 tablet in the morning and 1.5 tablets at night No list given. Patient is not sure if he is taking Metoprolol Allergies NonUrgent Zoloft CONC Swelling; Recorded By: Socorro Hamilton; 11/29/2021 9:03:58 AM Family History Mother Family history of diabetes mellitus (V18.0) (Z83.3) Father Family history of cardiovascular disease (V17.49) (Z82.49) Family history of pancreatic cancer (V16.0) (Z80.0) Brother Family history of diabetes mellitus (V18.0) (Z83.3) Social History Problems Former smoker (V15.82) (Z87.891) quit 2020 1ppd No illicit drug use medical marijuana edibles Occasional alcohol use beer Occasional caffeine consumption Review of Systems Constitutional: not feeling tired. Cardiovascular: chest pain, but no intermittent leg claudication and as noted in HPI. Respiratory: shortness of breath, but no cough. Gastrointestinal: no change in bowel habits and no blood in stools. Integumentary: no skin rashes. Neurological: no seizures and no frequent falls. All other systems have been reviewed and are negative for complaint. Vitals Vital Signs Recorded: [id number] 09:05AM Heart Rate96, R Radial [id number], RUE, Sitting [id number], RUE, Sitting Blood Pressure Cuff SizeAdult Height6 ft Nmivjx737 lb 8 oz BMI Ositjuxzqr63.28 kg/m2 BSA Calculated1.88 Tobacco Useb) No (more content not included)... Normal [facility] CARDIAC SONIA 3-6on 2 CK [Catalytic activity/Vol] 55 U/L Normal 39-308 [facility] Comment on above: Performed By: #### C MREP #### [facility] [address] [place] [address] Dr. Sushant Pradhan CK.MB [Mass/Vol] 1.25 ng/mL Normal <=3.60 [facility] Comment on above: Performed By: #### C MREP #### [facility] [address] [place] [address] Dr. Sushant Pradhan HSTROP 4.5 pg/mL Normal 4.0-76.1 [facility] Comment on above: Result Comment: CUT- OFF POINTS HAVE BEEN ESTABLISHED BASED ON THE FOURTH UNIVERSAL DEFINITIONS OF MYOCARDIAL INFARCTION. THE UPPER REFERENCE LIMIT (URL) OF TROPONIN, DEFINED THE 99TH PERCENTILE OF cTnI DISTRIBUTION IN A REFERENCE POPULATION, HAS BEEN CONFIRMED THE DECISION THRESHOLD FOR CO DIAGNOSIS. Performed By: #### C MREP #### [facility] [address] [place] [address] Dr. Sushant Pradhan CBC AUTO DIFFon 11-24-2021 BASO # 0.0 103/ul Normal 0.0-0.1 [facility] Comment on above: Performed By: #### C BC #### [facility] [address] [place] [address] Dr. Sushant Pradhan Basophils/100 WBC (Bld) 0.2 % Normal 0.2-2.0 [facility] Comment on above: Performed By: #### C BC #### [facility] [address] [place] [address] Dr. Sushant Pradhan EO # 0.0 103/ul Normal 0.0-0.7 [facility] Comment on above: Performed By: #### C BC #### [facility] [address] [place] [address] Dr. Sushant Pradhan Eosinophils/100 WBC (Bld) 0.0 % Critically low 0.9-7.0 [facility] Comment on above: Performed By: #### C BC #### [facility] [address] [place] [address] Dr. Sushant Pradhan Erythrocyte distribution width (RBC) [Ratio] 14.7 % Normal 11.0-15.0 [facility] Comment on above: Performed By: #### C BC #### [facility] [address] [place] [address] Dr. Sushant Pradhan Hematocrit (Bld) [Volume fraction] 35.5 % Critically low 42.0-54.0 [facility] Comment on above: Performed By: #### C BC #### [facility] [address] [place] [address] Dr. Sushant Pradhan Hemoglobin (Bld) [Mass/Vol] 12.8 g/dL Critically low 14.0-18.0 [facility] Comment on above: Performed By: #### C BC #### [facility] [address] [place] [address] Dr. Sushant Pradhan IG # 0.01 10e3/ul Normal 0.00-0.03 [facility] Comment on above: Performed By: #### C BC #### [facility] [address] [place] [address] Dr. Sushant Pradhan IG % 0.2 % Normal 0.0-0.5 [facility] Comment on above: Performed By: #### C BC #### [facility] [address] [place] [address] Dr. Sushant Pradhan LYMPH # 0.5 103/ul Critically low 1.2-3.8 [facility] Comment on above: Performed By: #### C BC #### [facility] [address] [place] [address] Dr. Sushant Pradhan Lymphocytes/100 WBC (Bld) 8.2 % Critically low 20.5-60.0 [facility] Comment on above: Performed By: #### C BC #### [facility] [address] [place] [address] Dr. Sushant Pradhan MANUAL DIFF REQ NO Normal [facility] Comment on above: Performed By: #### C BC #### [facility] [address] [place] [address] Dr. Sushant Pradhan MCH (RBC) [Entitic mass] 32.5 pg Normal 25.9-34.0 [facility] Comment on above: Performed By: #### C BC #### [facility] [address] [place] [address] Dr. Sushant Pradhan MCHC (RBC) [Mass/Vol] 36.1 g/dL Critically high 29.9-35.2 [facility] Comment on above: Performed By: #### C BC #### [facility] [address] [place] [address] Dr. Sushant Pradhan MCV (RBC) [Entitic vol] 90.1 fL Normal 80.0-94.0 [facility] Comment on above: Performed By: #### C BC #### [facility] [address] [place] [address] Dr. Sushant Pradhan MONO # 0.2 103/ul Critically low 0.3-0.8 [facility] Comment on above: Performed By: #### C BC #### [facility] [address] [place] [address] Dr. Sushant Pradhan Monocytes/100 WBC (Bld) 3.5 % Normal 1.7-12.0 [facility] Comment on above: Performed By: #### C BC #### [facility] [address] [place] [address] Dr. Sushant Pradhan NEUT # 4.8 103/ul Normal 1.4-6.5 [facility] Comment on above: Performed By: #### C BC #### [facility] [address] [place] [address] Dr. Sushant Pradhan Neutrophils/100 WBC (Bld) 87.9 % Critically high 43.0-75.0 [facility] Comment on above: Performed By: #### C BC #### [facility] [address] [place] [address] Dr. Sushant Pradhan Platelet mean volume (Bld) [Entitic vol] 9.4 fL Critically low 9.5-13.5 [facility] Comment on above: Performed By: #### C BC #### [facility] [address] [address] [address] Sushant Pradhan PLT 135 103/ul Critically low 150-450 [facility] Comment on above: Performed By: #### C BC #### [facility] [address] [address] [address] Sushant Pradhan RBC 3.94 106/ul Critically low 4.70-6.10 [facility] Comment on above: Performed By: #### C BC #### [facility] [address] [place] [address] Dr. Sushant Pradhan WBC 5.5 103/ul Normal 4.0-11.0 [facility] Comment on above: Performed By: #### C BC #### [facility] [address] [place] [address] Dr. Sushant Pradhan LIPID PROFILEon 11-24-2021 CHOL-HDL RATIO NORM SEE BELOW Normal [facility] Comment on above: Result Comment: 3.3 - 4.4 LOW RISK 4.4 - 7.1 AVERAGE RISK 7.1 - 11.0 MODERATE RISK >11.0 HIGH RISK Performed By: #### L IPID, BMP #### [facility] [address] [place] [address] Dr. Susahnt Pradhan Cholesterol [Mass/Vol] 126 mg/dL Normal <=200 [facility] Comment on above: Performed By: #### L IPID, BMP #### [facility] [address] [place] [address] Dr. Sushant Pradhan Cholesterol in HDL [Mass/Vol] 73 mg/dL Critically high 40-60 [facility] Comment on above: Performed By: #### L IPID, BMP #### [facility] [address] [place] [address] Dr. Sushant Pradhan Cholesterol in LDL [Mass/Vol] 44.2 mg/dL Normal [facility] Comment on above: Performed By: #### L IPID, BMP #### [facility] [address] [address] [address] Sushant Pradhan Cholesterol.total/Cho lesterol in HDL [Mass ratio] 1.7 {ratio} Normal [facility] Comment on above: Performed By: #### L IPID, BMP #### [facility] [address] [address] [address] Sushant Pradhan HDL NORMAL > or = 60 mg/dl - LO W CARDIOVASCULAR RISK <40 mg/dl - HIGH CARDIOVASCULAR RISK Normal [facility] Comment on above: Performed By: #### L IPID, BMP #### [facility] [address] [address] [address] Sushant Pradhan LDL CALC NORMAL SEE BELOW Normal [facility] Comment on above: Result Comment: <100 mg/dl OPTIMAL 100 - 129 mg/dl NEAR OR ABOVE OPTIMAL 130 - 159 mg/dl BORDERLINE HIGH 160 - 189 mg/dl HIGH >190 mg/dl VERY HIGH Performed By: #### L IPID, BMP #### [facility] [address] [place] [address] Dr. Sushant Pradhan Triglyceride [Mass/Vol] 44 mg/dL Normal <=150 [facility] Comment on above: Performed By: #### L IPID, BMP #### [facility] [address] [address] [address] Sushant Pradhan VLDL CALC 8.8 mg/dL Normal [facility] Comment on above: Performed By: #### L IPID, BMP #### [facility] [address] [place] [address] Dr. Sushant Pradhan NM STRESS/REST MULTIon 11-24 NM STRESS/REST MULTI Patient: EDISON ECHOLS N. Exam Date: 11/24/2021 : 1965 Gender:M Ordering : DR LIZBET LARA . Admission #: [id number] Family : Order #: [id number] CLICK HERE TO VIEW EXAM RADIOLOGY REPORT PROCEDURE: RADIONUCLIDE IMAGING STRESS/REST MULTI COMPARISON: None. INDICATIONS: Chest pain TECHNIQUE: Exam Description: Stress/Rest one day protocol gated SPECT Rest Imagin.5 mCi Tc-99m Cardiolite IV on 11/24/2021 Stress Imaging 29.0 mCi Tc-99m Cardiolite IV on 11/24/2021 Exercise Protocol: 0.4 mg Lexiscan given IV Heart Rate (bpm): Rest: 86 Max: 121 PMHR: 77 Blood Pressure: Rest: 136/90 Max: 174/100 Symptoms: Rest and peak stress ECG findings were normal and the exercise portion of the study was normal per attending physician Dr. Johann Vides . For more details please see separate cardiac stress test report. FINDINGS: QUALITY OF STUDY: Excellent. PERFUSION DEFECT: None. LOCATION: N/A SIZE: N/A. SEVERITY: N/A. TYPE: N/A. WALL MOTION: Normal. LV SIZE: Normal. 101 mL. TID / TCD: None; 0.9 LVEF: Normal. Calculated EF 65%. SUMMARY: Myocardial perfusion imaging study is NORMAL. CONCLUSION: 1. No reversible ischemia 2. Normal exercise test Dictated by: Marce Pagan MD on 11/24/2021 at 14:59 Approved by: Marce Pagan MD on 11/24/2021 at 15:06 Normal [facility] PROF CHEM 8 (BAS METB)on Anion gap [Moles/Vol] 10.7 mmol/L Normal [facility] Comment on above: Performed By: #### L IPID, BMP #### [facility] [address] [place] [address] Dr. Sushant Pradhan Calcium [Mass/Vol] 8.5 mg/dL Normal 8.5-10.1 [facility] Comment on above: Performed By: #### L IPID, BMP #### [facility] [address] [place] [address] Dr. Sushant Pradhan Chloride [Moles/Vol] 96 mmol/L Critically low 98-107 [facility] Comment on above: Performed By: #### L IPID, BMP #### [facility] [address] [place] [address] Dr. Sushant Pradhan CO2 [Moles/Vol] 22.0 mmol/L Normal 21.0-32.0 [facility] Comment on above: Performed By: #### L IPID, BMP #### [facility] [address] [address] [address] Sushant Pradhan Creatinine [Mass/Vol] 1.04 mg/dL Normal 0.70-1.30 [facility] Comment on above: Performed By: #### L IPID, BMP #### [facility] [address] [place] [address] Dr. Sushant Pradhan EGFR-AF GAMBIAN >60 Normal >=60 [facility] Comment on above: Performed By: #### L IPID, BMP #### [facility] [address] [place] [address] Dr. Sushant Pradhan EGFR-NON AF GAMBIAN >60 Normal >=60 [facility] Comment on above: Performed By: #### L IPID, BMP #### [facility] [address] [place] [address] Dr. Sushant Pradhan Glucose [Mass/Vol] 139 mg/dL Critically high 74-106 [facility] Comment on above: Performed By: #### L IPID, BMP #### [facility] [address] [place] [address] Dr. Sushant Pradhan Potassium [Moles/Vol] 4.2 mmol/L Normal 3.5-5.1 [facility] Comment on above: Performed By: #### L IPID, BMP #### [facility] [address] [place] [address] Dr. Sushant Pradhan Sodium [Moles/Vol] 127 mmol/L Critically low 136-145 [facility] Comment on above: Performed By: #### L IPID, BMP #### [facility] [address] [place] [address] Dr. Sushant Pradhan Urea nitrogen [Mass/Vol] 12.0 mg/dL Normal 7.0-18.0 [facility] Comment on above: Performed By: #### L IPID, BMP #### [facility] [address] [place] [address] Dr. Sushant Pradhan Urea nitrogen/Creatinine [Mass ratio] 11.5 mg/mg Normal [facility] Comment on above: Performed By: #### L IPID, BMP #### [facility] [address] [place] [address] Dr. Sushant Pradhan BNPon 11-23-2021 Natriuretic peptide B (Bld) [Mass/Vol] 189.0 pg/mL Normal <=900.0 [facility] Comment on above: Performed By: #### B RN TRANSITIONAL CARE, HSTROPN, BMP #### [facility] [address] [place] [address] Dr. Sushant Pradhan CARDIAC SONIA 3-6on 2 CK [Catalytic activity/Vol] 73 U/L Normal 39-308 [facility] Comment on above: Performed By: #### C MREP #### [facility] [address] [place] [address] Dr. Sushant Pradhan CK.MB [Mass/Vol] 1.78 ng/mL Normal <=3.60 [facility] Comment on above: Performed By: #### C MREP #### [facility] [address] [place] [address] Dr. Sushant Pradhan HSTROP 4.2 pg/mL Normal 4.0-76.1 [facility] Comment on above: Result Comment: CUT- OFF POINTS HAVE BEEN ESTABLISHED BASED ON THE FOURTH UNIVERSAL DEFINITIONS OF MYOCARDIAL INFARCTION. THE UPPER REFERENCE LIMIT (URL) OF TROPONIN, DEFINED THE 99TH PERCENTILE OF cTnI DISTRIBUTION IN A REFERENCE POPULATION, HAS BEEN CONFIRMED THE DECISION THRESHOLD FOR CO DIAGNOSIS. Performed By: #### C MREP #### [facility] [address] [place] [address] Dr. Sushant Pradhan CBC AUTO DIFFon 11-23-2021 BASO # 0.0 103/ul Normal 0.0-0.1 [facility] Comment on above: Performed By: #### C BC #### [facility] [address] [place] [address] Dr. Sushant Pradhan Basophils/100 WBC (Bld) 0.5 % Normal 0.2-2.0 [facility] Comment on above: Performed By: #### C BC #### [facility] [address] [place] [address] Dr. Sushant Pradhan EO # 0.1 103/ul Normal 0.0-0.7 [facility] Comment on above: Performed By: #### C BC #### [facility] [address] [place] [address] Dr. Sushant Pradhan Eosinophils/100 WBC (Bld) 0.9 % Normal 0.9-7.0 [facility] Comment on above: Performed By: #### C BC #### [facility] [address] [place] [address] Dr. Sushant Pradhan Erythrocyte distribution width (RBC) [Ratio] 15.3 % Critically high 11.0-15.0 [facility] Comment on above: Performed By: #### C BC #### [facility] [address] [place] [address] Dr. Sushant Pradhan Hematocrit (Bld) [Volume fraction] 38.7 % Critically low 42.0-54.0 [facility] Comment on above: Performed By: #### C BC #### [facility] [address] [place] [address] Dr. Sushant Pradhan Hemoglobin (Bld) [Mass/Vol] 14.0 g/dL Normal 14.0-18.0 [facility] Comment on above: Performed By: #### C BC #### [facility] [address] [place] [address] Dr. Sushant Pradhan IG # 0.01 10e3/ul Normal 0.00-0.03 [facility] Comment on above: Performed By: #### C BC #### [facility] [address] [place] [address] Dr. Sushant Pradhan IG % 0.2 % Normal 0.0-0.5 [facility] Comment on above: Performed By: #### C BC #### [facility] [address] [place] [address] Dr. Sushant Pradhan LYMPH # 1.1 103/ul Critically low 1.2-3.8 [facility] Comment on above: Performed By: #### C BC #### [facility] [address] [place] [address] Dr. Sushant Pradhan Lymphocytes/100 WBC (Bld) 17.2 % Critically low 20.5-60.0 [facility] Comment on above: Performed By: #### C BC #### [facility] [address] [place] [address] Dr. Sushant Pradhan MANUAL DIFF REQ NO Normal [facility] Comment on above: Performed By: #### C BC #### [facility] [address] [place] [address] Dr. Sushant Pradhan MCH (RBC) [Entitic mass] 32.7 pg Normal 25.9-34.0 [facility] Comment on above: Performed By: #### C BC #### [facility] [address] [place] [address] Dr. Sushant Pradhan MCHC (RBC) [Mass/Vol] 36.2 g/dL Critically high 29.9-35.2 [facility] Comment on above: Performed By: #### C BC #### [facility] [address] [place] [address] Dr. Sushant Pradhan MCV (RBC) [Entitic vol] 90.4 fL Normal 80.0-94.0 [facility] Comment on above: Performed By: #### C BC #### [facility] [address] [place] [address] Dr. Sushant Pradhan MONO # 0.5 103/ul Normal 0.3-0.8 [facility] Comment on above: Performed By: #### C BC #### [facility] [address] [place] [address] Dr. Sushant Pradhan Monocytes/100 WBC (Bld) 7.8 % Normal 1.7-12.0 [facility] Comment on above: Performed By: #### C BC #### [facility] [address] [place] [address] Dr. Sushant Pradhan NEUT # 4.7 103/ul Normal 1.4-6.5 [facility] Comment on above: Performed By: #### C BC #### [facility] [address] [place] [address] Dr. Sushant Pradhan Neutrophils/100 WBC (Bld) 73.4 % Normal 43.0-75.0 [facility] Comment on above: Performed By: #### C BC #### [facility] [address], [place] [address] Dr. Sushant Pradhan Platelet mean volume (Bld) [Entitic vol] 9.1 fL Critically low 9.5-13.5 [facility] Comment on above: Performed By: #### C BC #### [facility] [address] [address] [address] Sushant Pradhan PLT 153 103/ul Normal 150-450 [facility] Comment on above: Performed By: #### C BC #### [facility] [address] [place], [place] [address] Dr. Sushant Pradhan RBC 4.28 106/ul Critically low 4.70-6.10 [facility] Comment on above: Performed By: #### C BC #### [facility] [address] [address] [address] Sushant Pradhan WBC 6.4 103/ul Normal 4.0-11.0 [facility] Comment on above: Performed By: #### C BC #### [facility] [address] [place] [address] Dr. Sushant Pradhan CTA CHEST WO W CONon -13-2 022 CTA CHEST WO W CON EXAMINATION: CTA BUDDY ST WO W CON HISTORY: CHEST PAIN, UNSPECIFIED COMPARISON: 11/01/2020 TECHNIQUE: Axial, Coronal, and Sagittal images were created without and with IV contrast. Dose reduction techniques were achieved by using automated exposure control and/or adjustment of mA and/or kV according to patient size and/or use of iterative reconstruction technique. FINDINGS: LUNGS: Moderate to severe centrilobular emphysema with an upper lobe predominance. Dependent opacities, atelectasis favored PLEURA: 2.6 cm right pleural effusion VASCULATURE: No abnormality. VERONIKA: Mild right hilar lymphadenopathy MEDIASTINUM: No mass or adenopathy. CARDIAC: No enlargement, pericardial thickening, or significant calcification. AORTA: No aneurysm or dissection. CHEST WALL: No mass or axillary adenopathy. BONES: No bone lesion or fracture. LIMITED ABDOMEN: No suspicious findings. Limited images of the upper abdomen. OTHER: Negative. IMPRESSION: No central pulmonary thromboembolic disease 2.6 and a right pleural effusion Moderate to severe diffuse emphysema No focal pneumonia Electronically authenticated by: MARCE PAGAN Date: 2021-11-23 15:47 Normal [facility] Covid-19 PCR (CVDTB)on 11-11 SARS-CoV-2 (COVID-19) RNA DEANA+probe Ql (Unsp spec) Not detected Normal NOT DETECTED [facility] Comment on above: Result Comment: When diagnostic testing is negative, the possibility of a false negative should be considered in the context of a patient's recent exposures and the presence of clinical signs and symptoms consistent with SARS-CoV-2. This test is not yet approved or cleared by the [place] FDA. When there are no FDA-approved or cleared tests available, and other criteria are met, FDA can make tests available under an emergency access mechanism called an Emergency Use Authorization (EUA). The EUA for this test is supported by the [employer] of Health and Human Service's declaration that circumstances exist to justify the emergency use of in vitro diagnostics for the detection and/or diagnosis of the virus that causes COVID-19. This EUA will remain in effect for the duration of the COVID-19 declaration justifying emergency of IVDs, unless it is terminated or revoked by the FDA (after which the test may no longer be used). Performed By: #### C BC #### [facility] [address] [place] [address] Dr. Sushant Pradhan PROF CHEM 8 (BAS METB)on Anion gap [Moles/Vol] 13.9 mmol/L Normal [facility] Comment on above: Performed By: #### B RN TRANSITIONAL CARE, HSTROPN, BMP #### [facility] [address] [place] [address] Dr. Sushant Pradhan Calcium [Mass/Vol] 8.4 mg/dL Critically low 8.5-10.1 [facility] Comment on above: Performed By: #### B RN TRANSITIONAL CARE HSTROPN, BMP #### [facility] [address] [place] [address] Dr. Sushant Pradhan Chloride [Moles/Vol] 94 mmol/L Critically low 98-107 [facility] Comment on above: Performed By: #### B RN TRANSITIONAL CARE, HSTROPN, BMP #### [facility] [address] [address] [address] Sushant Pradhan CO2 [Moles/Vol] 24.7 mmol/L Normal 21.0-32.0 [facility] Comment on above: Performed By: #### B RN TRANSITIONAL CARE, HSTROPN, BMP #### [facility] [address] [address] [address] Sushant Pradhan Creatinine [Mass/Vol] 0.97 mg/dL Normal 0.70-1.30 [facility] Comment on above: Performed By: #### B RN TRANSITIONAL CARE, HSTROPN, BMP #### [facility] [address] [address] [address] Sushant Pradhan EGFR-AF GAMBIAN >60 Normal >=60 [facility] Comment on above: Performed By: #### B RN TRANSITIONAL CARE, HSTROPN, BMP #### [facility] [address] [place] [address] Dr. Sushant Pradhan EGFR-NON AF GAMBIAN >60 Normal >=60 [facility] Comment on above: Performed By: #### B RN TRANSITIONAL CARE, HSTROPN, BMP #### [facility] [address] [address] [address] Sushant Pradhan Glucose [Mass/Vol] 76 mg/dL Normal 74-106 [facility] Comment on above: Performed By: #### B RN TRANSITIONAL CARE, HSTROPN, BMP #### [facility] [address] [address] [address] Sushant Pradhan Potassium [Moles/Vol] 4.6 mmol/L Normal 3.5-5.1 [facility] Comment on above: Performed By: #### B RN TRANSITIONAL CARE, HSTROPN, BMP #### [facility] [address] [address] [address] Sushant Pradhan Sodium [Moles/Vol] 128 mmol/L Critically low 136-145 [facility] Comment on above: Performed By: #### B RN TRANSITIONAL CARE, HSTROPN, BMP #### [facility] [address] [address] [address] Sushant Pradhan Urea nitrogen [Mass/Vol] 9.0 mg/dL Normal 7.0-18.0 [facility] Comment on above: Performed By: #### B RN TRANSITIONAL CARE, HSTROPN, BMP #### [facility] [address] [place] [address] [address] [address] Sushant Pradhan Urea nitrogen/Creatinine [Mass ratio] 9.3 mg/mg Normal [facility] Comment on above: Performed By: #### B RN TRANSITIONAL CARE, HSTROPN, BMP #### [facility] [address] [place], [place] [address] Dr. Sushant Pradhan TROPONIN, HIGH SENSITIVITYon 11-23-2021 HSTROP 4.4 pg/mL Normal 4.0-76.1 [facility] Comment on above: Result Comment: CUT- OFF POINTS HAVE BEEN ESTABLISHED BASED ON THE FOURTH UNIVERSAL DEFINITIONS OF MYOCARDIAL INFARCTION. THE UPPER REFERENCE LIMIT (URL) OF TROPONIN, DEFINED THE 99TH PERCENTILE OF cTnI DISTRIBUTION IN A REFERENCE POPULATION, HAS BEEN CONFIRMED THE DECISION THRESHOLD FOR CO DIAGNOSIS. Performed By: #### B RN TRANSITIONAL CARE, HSTROPN, BMP #### [facility] [address] [place] [address] Dr. Sushant Pradhan Laboratory - Chemistry and C hemistry - challengeon 09-09-2021 Cholesterol [Mass/Vol] 125\S\125 below low threshold 140-200 [facility] y [address] DO Work Phone: Comment on above: Chol less than 200 m g/dl low risk Chol 201-239 mg/dl borderline risk Chol 240 mg/dl and greater high risk Cholesterol in LDL [Mass/Vol] 46\S\46 Normal 0-100 [facility] y 250 DO Work Phone: Comment on above: LDL ATP III CLASSIFI CATION LDL less than 100 mg/dL Optimal LDL 100-129 mg/dL Near or above optimal LDL 130-159 mg/dL Borderline high LDL 160-189 mg/dL High LDL greater than 189 mg/dL Very high Laboratory - Microbiology an d Antimicrobial susceptibilityon 09-09-2021 SARS-CoV-2 (COVID-19) RNA DEANA+probe Ql (Unsp spec) [facility] y 250 DO Work Phone: No Panel Informationon 09-09 78.5\S\78.5 above high threshold 25.1-36.5 [facility] y [address] DO Work Phone: Comment on above: PERFORMED BY:[address] [address] [place] [id number] MEDICAL DIRECTORCATY DELCID M.D. 1.0\S\1.0 Normal [facility] [address] DO Work Phone: Comment on above: INR Therapeutic Rang e A) Pre- and Peroperative OAT started two weeks before surgery. NOT HIP SURGERY: 1.5 - 2.5 HIP SURGERY: 2 - 3 B) Primary and secondary prevention of venous THROMBOSIS: 2 - 3 C) Active venous thrombosis, pulmonary embolism and prevention of recurrent venous thrombosis: 2 - 3 D) Prevention of arterial thromboembolism including patients with mechanical heart valves: 3 - 4.5 11.5\S\11.5 Normal 9.0-12.9 [facility] [address] DO Work Phone: 1.8\S\1.8 Normal <5.0 [facility] 250 DO Work Phone: Comment on above: PERFORMED BY:[address] [address] [place], [place] [id number] MEDICAL DIRECTORCATY DELCID M.D. 11\S\11 Normal [facility] [address] DO Work Phone: 57\S\57 Normal 35-149 [facility] DO Work Phone: Comment on above: TRIG ATP III CLASSIF ICATION TRIG less than 150 mg/dL Normal TRIG 150-199 mg/dL Borderline high TRIG 200-500 mg/dL High TRIG greater than 500 mg/dL Very high Standard traceable to the Center for Disease Conrtrol and Prevention (CDC) test method. 68\S\68 Normal 29-71 [facility] [address] DO Work Phone: Comment on above: HDL CHOL ATP-III CLA SSIFICATION Cardiovascular Risk HDL > or equal to 60 mg/dL LOW HDL < 40 mg/dL HIGH Negative Normal Negative -[facility] y [address] DO Work Phone: Comment on above: This is a duplicate Jonna SARS Antigen (EROS) result to be used for statistical tracking purpose only.PERFORMED BY:[id number] [place], [place] [id number] MEDICAL DIRECTORCATY DELCID M.D. 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) Orders Angina, class IV, Chest pain Cardiac Catherization; Status:Active - Retrospective Authorization; Requested for:[id number]; Chest pain Start: Aspirin 81 MG Oral Tablet Delayed Release; TAKE 1 TABLET DAILY DIRECTED Start: Metoprolol Tartrate 25 MG Oral Tablet; TAKE 0.5 TABLET Twice daily Start: Nitroglycerin 0.4 MG/HR Transdermal Patch 24 Hour; APPLY PATCH FOR 12 TO 14 HOURS DAILY, THEN REMOVE Health Maintenance IO EKG Electrocardiogram- 12 Lead; Status:Complete; Done: [id number] Lung cancer PHQ2 Screen Positive; Status:Complete - Retrospective Authorization; Done: [id number] SocHx: Former smoker Tobacco Use Screening; Status:Complete; Done: [id number] Patient Instructions By signing my name below, I, Darin Vega LPN, attest that this documentation has been prepared under the direction and in the presence of Dr. Lukas Oliveira DO. Please bring all medicines, vitamins, and herbal supplements with you when you come to the office. Prescriptions will not be filled unless you are compliant with your follow up appointments or have a follow up appointment scheduled as per instruction of your physician. Refills should be requested at the time of your visit. Follow up after testing completed Chief Complaint KIRILL ECHOLS is being seen for a cardiovascular evaluation of chest pain and dyspnea. Patient is a 56-year-old -[place]ong[place] gentleman returns and seen in cardiology consultation at the request of Dr. Cristian Gomez for exertional and resting chest discomfort consistent with classic anginal symptomatology. He states that when cutting his lawn the other day he had stop because of severe discomfort. He has had resting episodes as well even awakening at night with chest heaviness and pressure over the anterior and retrosternal area. He underwent cardiac consultation in the hospital 1-1/2 years ago in February 2020 for atypical chest discomfort, subsequent outpatient stress perfusion imaging was normal. There is no prior history of myocardial infarction, revascularization, stroke, thromboembolic or bleeding disorder. He has a history of small cell lung cancer that is been reportedly in remission for the past 9 months given recent PET scan and MRIs. Patient is not on aspirin and does not have nitroglycerin. Recommendations: Informed decision-making process, risk benefits reviewed with the patient including invasive versus noninvasive management. Will initiate metoprolol, aspirin and Nitrostat immediately, because of classic class IV symptomatology I believe we should proceed with cardiac catheterization at his most early convenience. Today's ECG reveals sinus rhythm with right atrial enlargement Surgical History Problems History of Arm surgery History of Complete colonoscopy Managed By: Eris HANEY, Nilesh 2016 History of Vasectomy History of Venous access port placement Current Meds Medication NameInstruction Advair Diskus 250-50 MCG/ACT Inhalation Aerosol Powder Breath ActivatedINHALE 1 PUFF EVERY 12 HOURS. amLODIPine Besylate 5 MG Oral TabletTake 1 tablet daily buPROPion HCl - 100 MG Oral TabletTAKE 1 TABLET 3 times daily Nitroglycerin 0.4 [address]t [address] 1 TABLET UNDER THE TONGUE EVERY 5 MINUTES FOR UP TO 3 DOSES NEEDED FOR CHEST PAIN.CALL 911 IF PAIN PERSISTS. QUEtiapine Fumarate 100 MG Oral Tablet1 tablet in the morning and 1.5 tablets at night Allergies Medication No Known Drug Allergies Recorded By: Zenobia Marcelino; 09/08/2021 10:09:19 AM Family History Mother Family history of diabetes mellitus (V18.0) (Z83.3) Father Family history of cardiovascular disease (V17.49) (Z82.49) Family history of pancreatic cancer (V16.0) (Z80.0) Brother Family history of diabetes mellitus (V18.0) (Z83.3) Social History Problems Former smoker (V15.82) (Z87.891) quit 2020 1ppd No illicit drug use medical marijuana edibles Occasional alcohol use beer Occasional caffeine consumption Review of Systems Constitutional: not feeling tired. Cardiovascular: chest pain and palpitations, but no intermittent leg claudication and as noted in HPI. Respiratory: shortness of breath during exertion, but no cough and no shortness of breath. Gastrointestinal: no change in bowel habits and no blood in stools. Integumentary: no skin rashes. Neurological: dizziness, but no seizures and no frequent falls. All other systems have been reviewed and are negative for complaint. Vitals Vital Signs Recorded: [id number] 10:09AMRecorded: [id number] 10:05AM Xubpompn201, LUE, Swslpzz696, RUE, Sitting Mowmjgqmc12, LUE, Rimnudt90, RUE, Sitting Heart Rate96, Apical Height6 ft Sdgnpn168 lb BMI Ogftdinzrd85.16 kg/m2 BSA (more content not included)... Normal Mosec, Mobile Secretary Tobacco Screening.on 022 Adult depression screening assessment Yes [facility] [facility] DO Work Phone: Fall risk assessment c) Not medically indicated [facility]-Sandie y 250 DO Work Phone: Tobacco use status [facility] b) No [facility]-Sandie y 250 DO Work Phone: Tobacco Screening. 3-Nearly every day [facility]Best[facility]ie y 250 DO Work Phone: Tobacco Screening. 2-More than half the days [facility] y 250 DO Work Phone: Tobacco Screening. 0-Not at all [facility]-YaBattletarsha y 250 DO Work Phone: Tobacco Screening. Extremely Difficult [facility]-Henri[facility] y 250 DO Work Phone: Albumin [Mass/volume] in Ser um or PlasmaOrdered By: Estela Varma on 09-02-2021 Albumin [Mass/Vol] 3.8 g/dL 3.2-5.5 [facility] Basophils Auto (Bld) [#/Vol] Ordered By: Estela Varma on 09-02-2021 Basophils (Bld) [#/Vol] 0.0 10*3/uL 0.0-0.2 [facility] Basophils/100 WBC Auto (Bld) Ordered By: Estela Varma on 09-02-2021 Basophils/100 WBC (Bld) 0.7 % . [facility] Eosinophils Auto (Bld) [#/Vo l]Ordered By: Estela Varma on 09-02-2021 Eosinophils (Bld) [#/Vol] 0.2 10*3/uL 0.0-0.45 [facility] Eosinophils/100 WBC Auto (Bl d)Ordered By: Estela Varma on 09-02-2021 Eosinophils/100 WBC (Bld) 4.2 % . [facility] Erythrocyte distribution wid th Auto (RBC) [Ratio]Ordered By: Estela Varma on 09-02-2021 Erythrocyte distribution width (RBC) [Ratio] 15.7 % 12.0-14.8 [facility] Globulin Calc (S) [Mass/Vol] Ordered By: Estela Varma on 09-02-2021 Globulin (S) [Mass/Vol] 3.4 g/dL [facility] Glucose Glucometer (BldC) [M ass/Vol]Ordered By: George Ash on 09-02-2021 Glucose [Mass/Vol] 82 mg/dL [facility] Comment on above: Random Glucose Refer ence Range is dependent on time and content of last meal. Glucose of more than 200 mg/dL in a nonstressed, ambulatory subject supports the diagnosis of Diabetes Mellitus. Hematocrit Auto (Bld) [Volum e fraction]Ordered By: Estela Varma on 09-02-2021 Hematocrit (Bld) [Volume fraction] 42.4 % 38.8-50.0 [facility] Hemoglobin [Mass/volume] in BloodOrdered By: Estela Varma on 09-02-2021 Hemoglobin (Bld) [Mass/Vol] 14.6 g/dL 13.0-17.0 [facility] Laboratory - Hematology and Cell countsOrdered By: Estela Varma on 09-02-2021 Nucleated RBC/100 WBC (Bld) [Ratio] 0.1 % 0-0.5 [facility] Leukocytes [#/volume] in Blo od by Automated countOrdered By: Estela Varma on 09-02-2021 WBC (Bld) [#/Vol] 5.0 10*3/uL 4.5-11.0 [facility] Lymphocytes Auto (Bld) [#/Vo l]Ordered By: Estela Varma on 09-02-2021 Lymphocytes (Bld) [#/Vol] 0.9 10*3/uL 1.00-4.8 [facility] Lymphocytes/100 WBC Auto (Bl d)Ordered By: Estela Varma on 09-02-2021 Lymphocytes/100 WBC (Bld) 18.2 % . [facility] MCH Auto (RBC) [Entitic mass ]Ordered By: Estela Varma on 09-02-2021 MCH (RBC) [Entitic mass] 32.6 pg 27.5-35.2 [facility] MCHC Auto (RBC) [Mass/Vol]Or dered By: Estela Varma on 09-02-2021 MCHC (RBC) [Mass/Vol] 34.4 g/dL 32.5-35.6 [facility] MCV Auto (RBC) [Entitic vol] Ordered By: Estela Varma on 09-02-2021 MCV (RBC) [Entitic vol] 94.8 fL 83.5-101 [facility] Monocytes Auto (Bld) [#/Vol] Ordered By: Estela Varma on 09-02-2021 Monocytes (Bld) [#/Vol] 0.4 10*3/uL 0.0-0.8 [facility] Monocytes/100 WBC Auto (Bld) Ordered By: Estela Varma on 09-02-2021 Monocytes/100 WBC (Bld) 7.9 % . [facility] Neutrophils Auto (Bld) [#/Vo l]Ordered By: Estela Varma on 09-02-2021 Neutrophils (Bld) [#/Vol] 3.5 10*3/uL 1.8-7.7 [facility] Neutrophils/100 WBC Auto (Bl d)Ordered By: Estela Varma on 09-02-2021 Neutrophils/100 WBC (Bld) 69.0 % . [facility] Platelet mean volume Auto (B ld) [Entitic vol]Ordered By: Estela Varma on 09-02-2021 Platelet mean volume (Bld) [Entitic vol] 7.0 fL 6.6-10.1 [facility] Platelets Auto (Bld) [#/Vol] Ordered By: Esetla Varma on 09-02-2021 Platelets (Bld) [#/Vol] 186 10*3/uL 150-450 [facility] Protein [Mass/volume] in Ser um or PlasmaOrdered By: Estela Varma on 09-02-2021 Protein [Mass/Vol] 7.2 g/dL 6.1-7.9 [facility] RBC Auto (Bld) [#/Vol]Ordere d By: Estela Varma on 09-02-2021 RBC (Bld) [#/Vol] 4.48 10*6/uL 3.90-5.60 [facility] Serum or plasma alanine glynn otransferase measurement without P-5'-P (enzymatic activiOrdered By: Estela Varma on 09-02-2021 ALT No additional P-5'-P [Catalytic activity/Vol] 13 U/L 10-60 [facility] Serum or plasma albumin/glob ulin mass ratioOrdered By: Estela Varma on 09-02-2021 Albumin/Globulin [Mass ratio] 1.1 {ratio} [facility] Serum or plasma alkaline abhijit sphatase measurement (enzymatic activity/volume)Ordered By: Estela Varma on 09-02-2021 ALP [Catalytic activity/Vol] 130 U/L 32-92 [facility] Serum or plasma aspartate am inotransferase measurement (enzymatic activity/volume)Ordered By: Estela Varma on 09-02-2021 AST [Catalytic activity/Vol] 18 U/L 10-42 [facility] Serum or plasma calcium ledy urement (mass/volume)Ordered By: Estela Varma on 09-02-2021 Calcium [Mass/Vol] 9.0 mg/dL 8.2-10.2 [facility] Serum or plasma carcinoembry onic antigen measurement (mass/volume)Ordered By: Estela Varma on 09-02-2021 Carcinoembryonic Ag [Mass/Vol] 11.4 ng/mL 0.0-3.0 [facility] Serum or plasma chloride carlyn surement (moles/volume)Ordered By: Estela Varma on 09-02-2021 Chloride [Moles/Vol] 100 mmol/L 95-114 [facility] Serum or plasma glucose ledy urement (mass/volume)Ordered By: Estela Varma on 09-02-2021 Glucose [Mass/Vol] 78 mg/dL 70-100 [facility] Comment on above: ADA recommended refe rence rangeRandom Glucose Reference Range is dependent on time and content of last meal. Glucose of more than 200 mg/dL in a nonstressed, ambulatory subject supports the diagnosis of Diabetes Mellitus. Serum or plasma potassium me asurement (moles/volume)Ordered By: Estela Varma on 09-02-2021 Potassium [Moles/Vol] 4.3 mmol/L 3.5-5.1 [facility] Serum or plasma sodium measu rement (moles/volume)Ordered By: Estela Varma on 09-02-2021 Sodium [Moles/Vol] 133 mmol/L 136-146 [facility] Serum or plasma total biliru bin measurement (mass/volume)Ordered By: Estela Varma on 09-02-2021 Bilirubin [Mass/Vol] 0.6 mg/dL 0.3-1.2 [facility] Serum or plasma total carbon dioxide measurement (moles/volume)Ordered By: Estela Varma on 09-02-2021 CO2 [Moles/Vol] 23.9 mmol/L 22.0-30.0 [facility] TSH DL <= 0.005 mIU/L QnOrde red By: George Ash on 01-31-2021 TSH Qn 1.65 m[IU]/L 0.45-5.33 [facility] Lipid Panel Fastingon 2020 Cholesterol [Mass/Vol] 145 mg/dL Normal 0-199 [facility] Comment on above: Result Comment: ATP III Cholesterol classification is Desirable. Performed By: #### L IPDF #### [facility] [address] [place] [address] HDL Cholesterol Fasting 49 mg/dL Normal 40-59 [facility] Comment on above: Result Comment: ATP III HDL Cholesterol Classification is Desirable. Expected Values: Males: >55 = No Risk 35-55 = Moderate Risk <35 = High Risk Females: >65 = No Risk 45-65 = Moderate Risk <45 = High Risk NCEP Guidelines: Third Report September 2000 >59 = negative risk factor for CHD <40 = major risk factor for CHD Performed By: #### L IPDF #### [facility] [address] [place] [address] LDL Cholesterol (Calculated) Fasting 76 mg/dL Normal 0-129 [facility] Comment on above: Result Comment: ATP III LDL Classification is Optimal. Performed By: #### L IPDF #### [facility] [address] [place] [address] Triglycerides Fasting 98 mg/dL Normal 0-150 [facility] Comment on above: Result Comment: ATP III Triglycerides Classification is Normal. Performed By: #### L IPDF #### [facility] [address] [place] [address] Vitamin B12 and Folateon Cobalamin (Vitamin B12) [Mass/Vol] 417 pg/mL Normal 232-1245 [facility] Comment on above: Performed By: #### B 12FO #### [facility] [address] [place] [address] Folate 13.4 ng/mL Normal 7.3-26.1 [facility] Comment on above: Result Comment: As o f 15, the methodology has changed. Results from this methodology should not be compared with results from previous methodology. Performed By: #### B 12FO #### [facility] [address] [place] [address] Vitamin Don 08-20-2020 Vitamin D 33.1 ng/mL Normal 30.0-100.0 [facility] Comment on above: Result Comment: (30- 100 ng/mL) Optimum Level This assay accurately quantifies the sum of vitamin D3, 25-Hydroxy and vitamin D2, 25-Hyroxy. Performed By: #### V ITD #### [facility] [address] [place] [address] Thyroxine (T4) free [Mass/vo lume] in Serum or Plasmaon 08-16-2020 Free T4 [Mass/Vol] 0.79 ng/dL 0.61-1.12 [facility] Lipid Profileon 08-06-2020 Cholesterol [Mass/Vol] 132 mg/dL Normal <200 [facility] Comment on above: Result Comment: Cholesterol Guidelines: <200 Desirable 200-240 Borderline >240 Undesirable Performed By: #### L IPR #### [facility] [employer] [address] [place] [address] Strapping Machine Tender: Joe Todd MD Cholesterol in HDL [Mass/Vol] 41 mg/dL Normal >40 [facility] Comment on above: Result Comment: HDL Guidelines: <40 Undesirable 40-59 Borderline >59 Desirable Performed By: #### L IPR #### [facility] [address] [place] [address] Strapping Machine Tender: Joe Todd MD Cholesterol in LDL [Mass/Vol] 72 mg/dL Normal 0-130 [facility] Comment on above: Result Comment: LDL Guidelines: <100 Desirable 100-129 Near to/above Desirable 130-159 Borderline >159 Undesirable Direct (measured) LDL and calculated LDL are not interchangeable tests. Performed By: #### L IPR #### [employer] [address] [place] [address] [employer]pping Machine Tender: Joe Todd MD Cholesterol.total/Cho lesterol in HDL [Mass ratio] 3.2 {ratio} Normal <5 [facility] Comment on above: Performed By: #### L IPR #### [employer] [address] [place] [address] [id number] [employer] Machine Tender: Joe Todd MD Triglyceride [Mass/Vol] 93 mg/dL Normal <150 [facility] Comment on above: Result Comment: Triglyceride Guidelines: <150 Desirable 150-199 Borderline 200-499 High >499 Very high Based on AHA Guidelines for fasting triglyceride, February 2012. Performed By: #### L IPR #### [facility] [address] [place], [place] [phone] Strapping Machine Tender: Joe Todd MD Cholesterol in VLDL [Mass/Vol] NOT REPORTED Normal 06-12 [facility] Comment on above: Performed By: #### L IPR #### [facility] [employer] [address] [place] [address] Strapping Machine Tender: Joe Todd MD Direct bilirubin measurement on 07-05-2020 Bilirubin.direct [Mass/Vol] 0.1 mg/dL 0.0-0.4 [facility] Serum or plasma non-glucuron idated bilirubin measurement (mass/volume)on 07-05-2020 Bilirubin.indirect [Mass/Vol] 0.8 mg/dL [facility] Laboratory - Hematology and Cell countson 05-24-2020 WBC (Bld) [#/Vol] 4.9 10*3/uL 4.5-11.0 [facility] Blood anisocytosis detection on 03-08-2020 Anisocytosis Ql (Bld) Slight [facility] No Panel Informationon 03-08 Platelet Estimate Normal Normal [facility] Platelet Morphology Comment Normal Normal [facility] RBC morphologyon 03-08-2020 RBC morphology finding Nom (Bld) N/A [facility] CARDIAC STRESS/REST (DILAN CARDIAL PERFUSION/MIBI)on 03-03-2020 [facility] CARDIAC STRESS/REST (MYOCARDIAL PERFUSION/MIBI) Patient Name: KIRILL ECHOLS STUDY: MYOCARDIAL PERFUSION STRESS TEST WITH LEXISCAN Performing facility: [facility], [address], [address], \[place] [address] [facility] Provider: Ema Oliveira DO, FACC PCP: Dr. B. Andrea Supervising provider: Tejal King MD, [facility] INDICATION: Chest Pain; HISTORY: Gender: M; Age: 54 y/o ; Height: 182.88 cm; Weight: 71.2883324 kg. HTN; Chest Pain; COPD; Quit smoking in 2020 years ago. COMPARISON: No comparison. ACCESSION NUMBER(S): [id number]; [id number]; [id number] ORDERING CLINICIAN: LUKAS OLIVEIRA TECHNIQUE: ONE DAY protocol. Stress injection: Date:03/03/2020, 35.3 mCi of Myoview IV 20 seconds after rapid injection of Lexiscan. Rest injection: Date: 03/03/2020, 11.8 mCi of Myoview IV at rest. The patient had a rapid injection of 0.4 mg of Lexiscan IV over 10 seconds. Imaging was performed by gated tomographic technique. Reason for Lexiscan: SOB STRESS TEST DATA: Resting heart rate was 69 BPM. Resting blood pressure was 112/72 mmHg. Peak blood pressure was 110/68 mmHg. Peak heart rate was 88 BPM. TEST TERMINATED DUE TO: Protocol completed 50mg Aminophylline given FINDINGS: STRESS TEST RESULTS: Resting electrocardiogram revealed normal sinus rhythm with first-degree AV block. There were no significant ischemic ECG changes or dysrhythmias. The patient did not have chest pains/symptoms during procedure. There was a normal recovery phase. IMAGING RESULTS: Image quality was good. Rest and stress tomographic images were reviewed and revealed normal perfusion without evidence of ischemia, myocardial infarction, or left ventricular dilatation with stress. Overall left ventricular systolic function appeared to be normal without regional wall motion abnormalities. Ejection fraction was 58%. TID is 0.95 and is normal. There was evidence of diaphragmatic attenuation artifact. IMPRESSION: Normal Lexiscan Myoview cardiac perfusion stress test. No evidence of ischemia or myocardial infarction by perfusion imaging. Normal left ventricular systolic function, ejection fraction 58%. No previous studies are available for comparison. Electronically signed by: TEJAL KING MD [facility] CARDIAC STRESS/REST INJE CTIONon 03-03-2020 [facility] CARDIAC STRESS/REST INJECTION Patient Name: KIRILL ECHOLS STUDY: MYOCARDIAL PERFUSION STRESS TEST WITH LEXISCAN Performing facility: [facility], [address], [address], \[place] [id number] [facility] Provider: Ema Oliveira DO, [facility] PCP: Dr. Danni Andrea Supervising provider: Tejal King MD, [facility] INDICATION: Chest Pain; HISTORY: Gender: M; Age: 54 y/o ; Height: 182.88 cm; Weight: 71.4462527 kg. HTN; Chest Pain; COPD; Quit smoking in 2020 years ago. COMPARISON: No comparison. ACCESSION NUMBER(S): [id number]; [id number]; [id number] ORDERING CLINICIAN: LUKAS OLIVEIRA TECHNIQUE: ONE DAY protocol. Stress injection: Date:03/03/2020, 35.3 mCi of Myoview IV 20 seconds after rapid injection of Lexiscan. Rest injection: Date: 03/03/2020, 11.8 mCi of Myoview IV at rest. The patient had a rapid injection of 0.4 mg of Lexiscan IV over 10 seconds. Imaging was performed by gated tomographic technique. Reason for Lexiscan: SOB STRESS TEST DATA: Resting heart rate was 69 BPM. Resting blood pressure was 112/72 mmHg. Peak blood pressure was 110/68 mmHg. Peak heart rate was 88 BPM. TEST TERMINATED DUE TO: Protocol completed 50mg Aminophylline given FINDINGS: STRESS TEST RESULTS: Resting electrocardiogram revealed normal sinus rhythm with first-degree AV block. There were no significant ischemic ECG changes or dysrhythmias. The patient did not have chest pains/symptoms during procedure. There was a normal recovery phase. IMAGING RESULTS: Image quality was good. Rest and stress tomographic images were reviewed and revealed normal perfusion without evidence of ischemia, myocardial infarction, or left ventricular dilatation with stress. Overall left ventricular systolic function appeared to be normal without regional wall motion abnormalities. Ejection fraction was 58%. TID is 0.95 and is normal. There was evidence of diaphragmatic attenuation artifact. IMPRESSION: Normal Lexiscan Myoview cardiac perfusion stress test. No evidence of ischemia or myocardial infarction by perfusion imaging. Normal left ventricular systolic function, ejection fraction 58%. No previous studies are available for comparison. Electronically signed by: TEJAL KING MD [facility] PART 2 STRESS OR REST (N O CHARGE)on 03-03-2020 [facility] PART 2 STRESS OR REST (NO CHARGE) Patient Name: KIRILL ECHOLS STUDY: MYOCARDIAL PERFUSION STRESS TEST WITH LEXISCAN Performing facility: [facility], [address], [address], \[place] [address] [facility] Provider: Ema Oliveira DO, [facility] PCP: Dr. Danni Andrea Supervising provider: Tejal King MD, [facility] INDICATION: Chest Pain; HISTORY: Gender: M; Age: 54 y/o ; Height: 182.88 cm; Weight: 71.9313650 kg. HTN; Chest Pain; COPD; Quit smoking in 2020 years ago. COMPARISON: No comparison. ACCESSION NUMBER(S): [id number]; [id number]; [id number] ORDERING CLINICIAN: LUKAS OLIVEIRA TECHNIQUE: ONE DAY protocol. Stress injection: Date:03/03/2020, 35.3 mCi of Myoview IV 20 seconds after rapid injection of Lexiscan. Rest injection: Date: 03/03/2020, 11.8 mCi of Myoview IV at rest. The patient had a rapid injection of 0.4 mg of Lexiscan IV over 10 seconds. Imaging was performed by gated tomographic technique. Reason for Lexiscan: SOB STRESS TEST DATA: Resting heart rate was 69 BPM. Resting blood pressure was 112/72 mmHg. Peak blood pressure was 110/68 mmHg. Peak heart rate was 88 BPM. TEST TERMINATED DUE TO: Protocol completed 50mg Aminophylline given FINDINGS: STRESS TEST RESULTS: Resting electrocardiogram revealed normal sinus rhythm with first-degree AV block. There were no significant ischemic ECG changes or dysrhythmias. The patient did not have chest pains/symptoms during procedure. There was a normal recovery phase. IMAGING RESULTS: Image quality was good. Rest and stress tomographic images were reviewed and revealed normal perfusion without evidence of ischemia, myocardial infarction, or left ventricular dilatation with stress. Overall left ventricular systolic function appeared to be normal without regional wall motion abnormalities. Ejection fraction was 58%. TID is 0.95 and is normal. There was evidence of diaphragmatic attenuation artifact. IMPRESSION: Normal Lexiscan Myoview cardiac perfusion stress test. No evidence of ischemia or myocardial infarction by perfusion imaging. Normal left ventricular systolic function, ejection fraction 58%. No previous studies are available for comparison. Electronically signed by: TEJAL KING MD [facility] No Panel Informationon 03-02 Schistocytes Rare [facility] Target cellson 03-02-2020 Target cells LM Ql (Bld) Slight [facility] Basophil percentageon 2019 Eosinophils/100 WBC (Bld) 1 % 1-3 [facility] Blood polychromasia detectio n by light microscopyon 02-24-2020 Polychromasia LM Ql (Bld) [facility] - Hematology and Cell countson 02-24-2020 Band form neutrophils/100 WBC (Bld) 13 % 0-5 [facility] Lymphocytes/100 WBC Auto (Bl d)on 02-24-2020 Lymphocytes/100 WBC (Bld) 9 % 18-42 [facility] Monocyte %on 02-24-2020 Monocytes/100 WBC (Bld) 1 % 1-3 [facility] Monocytes/100 WBC Manual cnt (Bld)on 02-24-2020 Monocytes/100 WBC (Bld) 16 % 2-11 [facility] No Panel Informationon 02-23 Dohle Bodies Moderate [facility] Poikilocytosis Slight [facility] Ovalocyte detectionon 2019 Ovalocytes LM Ql (Bld) Slight [facility] Segmented neutrophils/100 WB C Manual cnt (Bld)on 02-24-2020 Segmented neutrophils/100 WBC (Bld) 61 % 50-70 [facility] Hypochromia detectionon 01-13 Hypochromia Ql (Bld) [facility] Macrocytes detectionon 01-19 Macrocytes Ql (Bld) Slight [facility] No Panel Informationon 01-19 Smudge Cells Few [facility] Red blood cell stomatocyte d etectionon 12-09-2019 Stomatocytes LM Ql (Bld) [facility] Respiratory specimen 2019 no amthieu coronavirus RNA detection by probe and target amplifion 11-21-2019 SARS-CoV-2 (COVID-19) RNA DEANA+probe Ql (Resp) Not detected Not Detected [facility] Comment on above: This test was develo ped and its performance characteristicsdetermined by [email or web address]. This test has not beenFDA cleared or approved. This test has been authorized byA under an Emergency Use Authorization (EUA). This testis only authorized for the duration of time the declarationthat circumstances exist justifying the authorization ofthe emergency use of in vitro diagnostic tests fordetection of SARS-CoV-2 virus and/or diagnosis of COVID-19infection under section 564(b)(1) of the Act, 21 U.S.C.360bbb-3(b)(1), unless the authorization is terminated orrevoked sooner. When diagnostic testing is negative, thepossibility of a false negative result should be consideredin the context of a patient's recent exposures and thepresence of clinical signs and symptoms consistent withCOVID-19. An individual without symptoms of COVID-19 andwho is not shedding SARS-CoV-2 virus would expect to have anegative (not detected) result in this assay.Performed at: [facility] [id number] [employer] [facility] [place] [id number] Director: Antonio Chaney MD, Phone: [phone] Basophils/100 WBC Auto (Bld) on 11-18-2019 Basophils/100 WBC (Bld) 1 % 0-2 [facility] Amylaseon 04-28-2018 Amylase enzyme act/vol 130 U/L High 30-110 [facility] Comment on above: Performed By: #### C BCDIF, PT, GBCHEM, GBTSH, LIPA, MG, GBHCV, HAVIGM, HBCAB, HBSAG, RPR ####[employer] [facility] [id number] [place], [place] [phone] GGTon 04-28-2018 Gamma glutamyl transferase [Enzymatic activity/volume] in Serum or Plasma 426 U/L High 15-73 [facility] Comment on above: Performed By: #### C BCDIF, PT, GBCHEM, GBTSH, LIPA, MG, GBHCV, HAVIGM, HBCAB, HBSAG, RPR ####[facility] [id number] [place], [place] [phone] Hepatic Function Pnlon 04-28 Albumin mass conc 4.2 g/dL Normal 3.5-5.0 [facility] Comment on above: Performed By: #### C BCDIF, PT, GBCHEM, GBTSH, LIPA, MG, GBHCV, HAVIGM, HBCAB, HBSAG, RPR ####[facility] [id number] [place], [place] [phone] Alkaline Phos 96 U/L Normal 38-125 [facility] Comment on above: Performed By: #### C BCDIF, PT, GBCHEM, GBTSH, LIPA, MG, GBHCV, HAVIGM, HBCAB, HBSAG, RPR ####[facility] [id number] [place], [place] [phone] ALT enzyme act/vol 60 U/L Normal 21-72 [facility] Comment on above: Performed By: #### C BCDIF, PT, GBCHEM, GBTSH, LIPA, MG, GBHCV, HAVIGM, HBCAB, HBSAG, RPR ####[facility] Clinical [id number] [place], [place] [phone] AST enzyme act/vol 65 U/L High 17-59 [facility] Comment on above: Performed By: #### C BCDIF, PT, GBCHEM, GBTSH, LIPA, MG, GBHCV, HAVIGM, HBCAB, HBSAG, RPR ####[facility] Clinical [id number] [place], [place] [phone] Bilirubin Ql (U) 0.3 mg/dL Normal 0.2-1.3 [facility] Comment on above: Performed By: #### C BCDIF, PT, GBCHEM, GBTSH, LIPA, MG, GBHCV, HAVIGM, HBCAB, HBSAG, RPR ####[facility] Clinical [id number] [place], [place] [phone] Bilirubin.direct mass conc 0.2 mg/dL Normal 0.0-0.4 [facility] Comment on above: Performed By: #### C BCDIF, PT, GBCHEM, GBTSH, LIPA, MG, GBHCV, HAVIGM, HBCAB, HBSAG, RPR ####[facility] Clinical [id number] [facility] [place] [phone] Protein mass conc 7.3 g/dL Normal 6.2-8.2 [facility] Comment on above: Performed By: #### C BCDIF, PT, GBCHEM, GBTSH, LIPA, MG, GBHCV, HAVIGM, HBCAB, HBSAG, RPR ####[facility] Clinical [id number] [place], [place] [phone] Lipaseon 04-28-2018 Lipase enzyme act/vol 941 U/L High 23-300 [facility] Comment on above: Performed By: #### C BCDIF, PT, GBCHEM, GBTSH, LIPA, MG, GBHCV, HAVIGM, HBCAB, HBSAG, RPR ####[facility] Clinical [id number] [place], [place] [phone] Phenobarbitalon 04-26-2018 Phenobarbital mass conc ug/mL Low 15.0-40.0 [facility] Comment on above: Performed By: #### C BCDIF, PT, GBCHEM, GBTSH, LIPA, MG, GBHCV, HAVIGM, HBCAB, HBSAG, RPR ####[facility] [id number] [place], [place] [phone] RPRon 04-25-2018 Reagin Ab RPR Ql (S) Nonreactive Normal Nonreactive [facility] Comment on above: Performed By: #### C BCDIF, PT, GBCHEM, GBTSH, LIPA, MG, GBHCV, HAVIGM, HBCAB, HBSAG, RPR ####[facility] Clinical [id number] [facility], [place] [phone] Urinalysison 04-25-2018 Bilirubin Negative Normal Negative [facility] Comment on above: Performed By: #### C BCDIF, PT, GBCHEM, GBTSH, LIPA, MG, GBHCV, HAVIGM, HBCAB, HBSAG, RPR ####[facility] Uqa13112 [facility], [place] [phone] Cast SEE NOTES Normal 0 [facility] Comment on above: Result Comment: >20H yaline Cast Performed By: #### C BCDIF, PT, GBCHEM, GBTSH, LIPA, MG, GBHCV, HAVIGM, HBCAB, HBSAG, RPR ####[facility] Clinical [id number] [address] [facility] Hospitalrdon, [place] [phone] Clarity Nom (U) Cloudy Critically abnormal [facility] Comment on above: Performed By: #### C BCDIF, PT, GBCHEM, GBTSH, LIPA, MG, GBHCV, HAVIGM, HBCAB, HBSAG, RPR ####[facility] [id number] [facility], [place] [phone] Color Nom (U) Taylor Critically abnormal Yellow [facility] Comment on above: Performed By: #### C BCDIF, PT, GBCHEM, GBTSH, LIPA, MG, GBHCV, HAVIGM, HBCAB, HBSAG, RPR ####[facility] [id number] [facility], [place] [phone] Crystals SEE NOTES Normal 0 [facility] Comment on above: Result Comment: FewA morphous Performed By: #### C BCDIF, PT, GBCHEM, GBTSH, LIPA, MG, GBHCV, HAVIGM, HBCAB, HBSAG, RPR ####[facility] Ckw90638 [facility], [place] [phone] Epithelial Cells Few Normal [facility] Comment on above: Result Comment: Squa mous Epithelial Cells Performed By: #### C BCDIF, PT, GBCHEM, GBTSH, LIPA, MG, GBHCV, HAVIGM, HBCAB, HBSAG, RPR ####[facility] Clinical [id number] [place] [address], [place] [phone] Glucose Negative Normal Negative [facility] Comment on above: Performed By: #### C BCDIF, PT, GBCHEM, GBTSH, LIPA, MG, GBHCV, HAVIGM, HBCAB, HBSAG, RPR ####[facility] Clinical Zpt40515 [facility], [place] [phone] Hemoglobin/Blood Negative Normal Negative [facility] Comment on above: Performed By: #### C BCDIF, PT, GBCHEM, GBTSH, LIPA, MG, GBHCV, HAVIGM, HBCAB, HBSAG, RPR ####[facility] Clinical [id number] [facility], [phone] INR Coag RelTime (Bld) 0-3 Normal 0-3 [facility] Comment on above: Performed By: #### C BCDIF, PT, GBCHEM, GBTSH, LIPA, MG, GBHCV, HAVIGM, HBCAB, HBSAG, RPR ####[facility] Clinical Nip30860 [facility], [place] [phone] Ketone Trace Critically abnormal Negative [facility] Comment on above: Performed By: #### C BCDIF, PT, GBCHEM, GBTSH, LIPA, MG, GBHCV, HAVIGM, HBCAB, HBSAG, RPR ####[facility] Clinical Bco76724 [place], [place] [phone] Leukest Negative Normal Negative [facility] Comment on above: Performed By: #### C BCDIF, PT, GBCHEM, GBTSH, LIPA, MG, GBHCV, HAVIGM, HBCAB, HBSAG, RPR ####[facility] Clinical [id number] [place] [phone] Nitrites Negative Normal Negative [facility] Comment on above: Performed By: #### C BCDIF, PT, GBCHEM, GBTSH, LIPA, MG, GBHCV, HAVIGM, HBCAB, HBSAG, RPR ####[facility] Clinical Bpo30327 [facility], [place] [phone] pH Test strip (U) 5.0 [pH] Normal 5-7 [facility] Comment on above: Performed By: #### C BCDIF, PT, GBCHEM, GBTSH, LIPA, MG, GBHCV, HAVIGM, HBCAB, HBSAG, RPR ####[facility] Clinical Skv77132 [place], [place] [phone] Protein mass conc 100 mg/dl Critically abnormal Negative [facility] Comment on above: Performed By: #### C BCDIF, PT, GBCHEM, GBTSH, LIPA, MG, GBHCV, HAVIGM, HBCAB, HBSAG, RPR ####[facility] Clinical Luy37415 [facility], [place] [phone] Urine Alpesh Comment Many Normal [facility] Comment on above: Result Comment: MUCO US Performed By: #### C BCDIF, PT, GBCHEM, GBTSH, LIPA, MG, GBHCV, HAVIGM, HBCAB, HBSAG, RPR ####[facility] Clinical [id number] [place], [place] [phone] Urine Spec Opheim 1.025 Normal 1.005-1.030 [facility] Comment on above: Performed By: #### C BCDIF, PT, GBCHEM, GBTSH, LIPA, MG, GBHCV, HAVIGM, HBCAB, HBSAG, RPR ####[facility] Clinical Syr08165 [place], [place] [phone] Urobilinogen 2.0 mg/dl High 0.0-1.0 [facility] Comment on above: Performed By: #### C BCDIF, PT, GBCHEM, GBTSH, LIPA, MG, GBHCV, HAVIGM, HBCAB, HBSAG, RPR ####[facility] Clinical Oaa13434 [place], [place] [phone] WBC 0-5 Normal 0-5 [facility] Comment on above: Performed By: #### C BCDIF, PT, GBCHEM, GBTSH, LIPA, MG, GBHCV, HAVIGM, HBCAB, HBSAG, RPR ####[facility] Clinical Ngz47516 [place], [place] [phone] CBCDIFon 04-24-2018 Abs Baso 0.02 k/uL Normal 0-0.2 [facility] Comment on above: Performed By: #### C BCDIF, PT, GBCHEM, GBTSH, LIPA, MG, GBHCV, HAVIGM, HBCAB, HBSAG, RPR ####[facility] Clinical Vch11670 [facility], [place] [phone] Abs [place] 1.23 k/uL High 0-0.8 [facility] Comment on above: Performed By: #### C BCDIF, PT, GBCHEM, GBTSH, LIPA, MG, GBHCV, HAVIGM, HBCAB, HBSAG, RPR ####[facility] Clinical Xhq01053 [facility], [place] [phone] Abs Neut 7.41 k/uL Normal 1.8-7.7 [facility] Comment on above: Performed By: #### C BCDIF, PT, GBCHEM, GBTSH, LIPA, MG, GBHCV, HAVIGM, HBCAB, HBSAG, RPR ####[facility] Clinical Iyj49509 [facility], [place] [phone] Basophils/100 WBC Auto (Bld) 0.2 % Normal 0-1 [facility] Comment on above: Performed By: #### C BCDIF, PT, GBCHEM, GBTSH, LIPA, MG, GBHCV, HAVIGM, HBCAB, HBSAG, RPR ####[facility] Clinical Feh79140 [place], [place] [phone] Eosinophils Auto #/vol (Bld) 0.38 10*3/uL Normal 0-0.4 [facility] Comment on above: Performed By: #### C BCDIF, PT, GBCHEM, GBTSH, LIPA, MG, GBHCV, HAVIGM, HBCAB, HBSAG, RPR ####[facility] Clinical Tai76602 [facility], [place] [phone] Eosinophils/100 WBC Auto (Bld) 3.3 % Normal 0-4 [facility] Comment on above: Performed By: #### C BCDIF, PT, GBCHEM, GBTSH, LIPA, MG, GBHCV, HAVIGM, HBCAB, HBSAG, RPR ####[facility] Clinical Rnd39870 [place] [phone] Erythrocyte distribution width Auto Ratio (RBC) 14.6 % High 11.5-14.5 [facility] Comment on above: Performed By: #### C BCDIF, PT, GBCHEM, GBTSH, LIPA, MG, GBHCV, HAVIGM, HBCAB, HBSAG, RPR ####[facility] Btm33371 [place] [phone] Hematocrit Auto Volume Fraction (Bld) 46.2 % Normal 41.0-53.0 [facility] Comment on above: Performed By: #### C BCDIF, PT, GBCHEM, GBTSH, LIPA, MG, GBHCV, HAVIGM, HBCAB, HBSAG, RPR ####[facility] Clinical Ypi28845 [place] [phone] Hemoglobin mass conc (Bld) 16.2 g/dL Normal 13.5-17.5 [facility] Comment on above: Performed By: #### C BCDIF, PT, GBCHEM, GBTSH, LIPA, MG, GBHCV, HAVIGM, HBCAB, HBSAG, RPR ####[facility] Clinical Zhs37265 [place] [phone] Immature Gran 0.30 % Normal 0-1.9 [facility] Comment on above: Performed By: #### C BCDIF, PT, GBCHEM, GBTSH, LIPA, MG, GBHCV, HAVIGM, HBCAB, HBSAG, RPR ####[facility] Juv99724 [place], [place] [phone] Lymphocytes Auto #/vol (Bld) 2.56 10*3/uL Normal 1.0-4.0 [facility] Comment on above: Performed By: #### C BCDIF, PT, GBCHEM, GBTSH, LIPA, MG, GBHCV, HAVIGM, HBCAB, HBSAG, RPR ####[facility] Clinical Jlc91229 [place], [place] [phone] Lymphocytes/100 WBC Auto (Bld) 22.0 % Normal 22-44 [facility] Comment on above: Performed By: #### C BCDIF, PT, GBCHEM, GBTSH, LIPA, MG, GBHCV, HAVIGM, HBCAB, HBSAG, RPR ####[facility] Clinical Nrx72249 [facility], [place] [phone] MCH Auto Entitic mass (RBC) 31.6 pG Normal 26-34 [facility] Comment on above: Performed By: #### C BCDIF, PT, GBCHEM, GBTSH, LIPA, MG, GBHCV, HAVIGM, HBCAB, HBSAG, RPR ####[facility] Clinical Jal48452 [place], [place] [phone] MCHC Auto mass conc (RBC) 35.1 g/dL Normal 31-37 [facility] Comment on above: Performed By: #### C BCDIF, PT, GBCHEM, GBTSH, LIPA, MG, GBHCV, HAVIGM, HBCAB, HBSAG, RPR ####[facility] Clinical Fsf09370 [place], [place] [phone] MCV Auto Entitic volume (RBC) 90.1 fL Normal 80-100 [facility] Comment on above: Performed By: #### C BCDIF, PT, GBCHEM, GBTSH, LIPA, MG, GBHCV, HAVIGM, HBCAB, HBSAG, RPR ####[facility] Clinical Okj67217 [place], [place] [phone] Monocytes/100 WBC Auto (Bld) 10.6 % Normal 4-12 [facility] Comment on above: Performed By: #### C BCDIF, PT, GBCHEM, GBTSH, LIPA, MG, GBHCV, HAVIGM, HBCAB, HBSAG, RPR ####[facility] Clinical Pzr94754 [place], [place] [phone] Neutrophils/100 WBC Auto (Bld) 63.6 % Normal 40-70 [facility] Comment on above: Performed By: #### C BCDIF, PT, GBCHEM, GBTSH, LIPA, MG, GBHCV, HAVIGM, HBCAB, HBSAG, RPR ####[facility] Clinical Uki00072 [facility], [place] [phone] NRBCs 0 /100 WBC Normal 0-0.9 [facility] Comment on above: Performed By: #### C BCDIF, PT, GBCHEM, GBTSH, LIPA, MG, GBHCV, HAVIGM, HBCAB, HBSAG, RPR ####[facility] Akm51612 [facility], [place] [phone] Platelets Auto #/vol (Bld) 188 10*3/uL Normal 150-450 [facility] Comment on above: Performed By: #### C BCDIF, PT, GBCHEM, GBTSH, LIPA, MG, GBHCV, HAVIGM, HBCAB, HBSAG, RPR ####[facility] Jkq44593 [facility], [place] [phone] RBC Auto #/vol (Bld) 5.13 10*6/uL Normal 4.50-5.90 [facility] Comment on above: Performed By: #### C BCDIF, PT, GBCHEM, GBTSH, LIPA, MG, GBHCV, HAVIGM, HBCAB, HBSAG, RPR ####[facility] Clinical Yeb91114 [facility], [place] [phone] WBC Auto #/vol (Bld) 11.63 10*3/uL High 4.5-11.0 [facility] Comment on above: Performed By: #### C BCDIF, PT, GBCHEM, GBTSH, LIPA, MG, GBHCV, HAVIGM, HBCAB, HBSAG, RPR ####[facility] Clinical Oad57583 [place] [phone] [facility] Prof 2017 Albumin mass conc 5.0 g/dL Normal 3.5-5.0 [facility] Comment on above: Performed By: #### C BCDIF, PT, GBCHEM, GBTSH, LIPA, MG, GBHCV, HAVIGM, HBCAB, HBSAG, RPR ####[facility] Clinical [id number] [place], [place] [phone] Alkaline Phos 137 U/L High 38-125 [facility] Comment on above: Performed By: #### C BCDIF, PT, GBCHEM, GBTSH, LIPA, MG, GBHCV, HAVIGM, HBCAB, HBSAG, RPR ####[facility] Hit96998 [facility], [place] [phone] ALT enzyme act/vol 54 U/L Normal 21-72 [facility] Comment on above: Performed By: #### C BCDIF, PT, GBCHEM, GBTSH, LIPA, MG, GBHCV, HAVIGM, HBCAB, HBSAG, RPR ####[facility] Clinical Dkw30333 [place], [place] [phone] Amylase enzyme act/vol 156 U/L High 30-110 [facility] Comment on above: Performed By: #### C BCDIF, PT, GBCHEM, GBTSH, LIPA, MG, GBHCV, HAVIGM, HBCAB, HBSAG, RPR ####[facility] Clinical Tgb71536 [place], [place] [phone] Anion gap 3 molar conc 18 mmol/L High 0-15 [facility] Comment on above: Performed By: #### C BCDIF, PT, GBCHEM, GBTSH, LIPA, MG, GBHCV, HAVIGM, HBCAB, HBSAG, RPR ####[facility] Blb84232 [facility] [place] [phone] AST enzyme act/vol 102 U/L High 17-59 [facility] Comment on above: Performed By: #### C BCDIF, PT, GBCHEM, GBTSH, LIPA, MG, GBHCV, HAVIGM, HBCAB, HBSAG, RPR ####[facility] Clinical Isl83069 [facility], [place] [phone] Bilirubin Ql (U) 1.5 mg/dL High 0.2-1.3 [facility] Comment on above: Performed By: #### C BCDIF, PT, GBCHEM, GBTSH, LIPA, MG, GBHCV, HAVIGM, HBCAB, HBSAG, RPR ####[facility] Clinical [id number] [facility], [place] [phone] Calcium mass conc 10.0 mg/dL Normal 8.4-10.2 [facility] Comment on above: Performed By: #### C BCDIF, PT, GBCHEM, GBTSH, LIPA, MG, GBHCV, HAVIGM, HBCAB, HBSAG, RPR ####[facility] Clinical Wss33111 [place], [place] [phone] Chloride molar conc 91 mmol/L Low 98-107 [facility] Comment on above: Performed By: #### C BCDIF, PT, GBCHEM, GBTSH, LIPA, MG, GBHCV, HAVIGM, HBCAB, HBSAG, RPR ####[facility] Clinical Dsn64274 [place], [place] [phone] Cholesterol mass conc 155 mg/dL Normal 100-199 [facility] Comment on above: Performed By: #### C BCDIF, PT, GBCHEM, GBTSH, LIPA, MG, GBHCV, HAVIGM, HBCAB, HBSAG, RPR ####[facility] Clinical Zra87129 [facility], [place] [phone] CO2 molar conc 27 mmol/L Normal 22-30 [facility] Comment on above: Performed By: #### C BCDIF, PT, GBCHEM, GBTSH, LIPA, MG, GBHCV, HAVIGM, HBCAB, HBSAG, RPR ####[facility] Clinical Smg89726 [facility], [place] [phone] Creatinine mass conc 1.47 mg/dL High 0.66-1.25 [facility] Comment on above: Performed By: #### C BCDIF, PT, GBCHEM, GBTSH, LIPA, MG, GBHCV, HAVIGM, HBCAB, HBSAG, RPR ####[facility] Clinical Kme20249 [place], [place] [phone] eGFR Amer >60 Normal >60 [facility] Comment on above: Result Comment: MDRD calculation used for eGFR results. Performed By: #### C BCDIF, PT, GBCHEM, GBTSH, LIPA, MG, GBHCV, HAVIGM, HBCAB, HBSAG, RPR ####[facility] Clinical Atr24963 [place], [place] [phone] eGFR non Am 53 mL/min/1.73 2 Low >60 [facility] Comment on above: Performed By: #### C BCDIF, PT, GBCHEM, GBTSH, LIPA, MG, GBHCV, HAVIGM, HBCAB, HBSAG, RPR ####[facility] Clinical Rnr55367 [place], [place] [phone] Gamma glutamyl transferase [Enzymatic activity/volume] in Serum or Plasma 602 U/L High 15-73 [facility] Comment on above: Performed By: #### C BCDIF, PT, GBCHEM, GBTSH, LIPA, MG, GBHCV, HAVIGM, HBCAB, HBSAG, RPR ####[facility] Clinical Ves95607 [place], [place] [phone] Glucose mass conc 98 mg/dL Normal 74-106 [facility] Comment on above: Performed By: #### C BCDIF, PT, GBCHEM, GBTSH, LIPA, MG, GBHCV, HAVIGM, HBCAB, HBSAG, RPR ####[facility] Clinical Ulc20956 [place], [place] [phone] LDH 550 U/L Normal 318-618 [facility] Comment on above: Performed By: #### C BCDIF, PT, GBCHEM, GBTSH, LIPA, MG, GBHCV, HAVIGM, HBCAB, HBSAG, RPR ####[facility] Clinical [id number] [facility], [place] [phone] Phosphate mass conc 3.9 mg/dL Normal 2.5-4.5 [facility] Comment on above: Performed By: #### C BCDIF, PT, GBCHEM, GBTSH, LIPA, MG, GBHCV, HAVIGM, HBCAB, HBSAG, RPR ####[facility] Clinical Hgm61593 [place], [place] [phone] Potassium molar conc 3.7 mmol/L Normal 3.5-5.1 [facility] Comment on above: Performed By: #### C BCDIF, PT, GBCHEM, GBTSH, LIPA, MG, GBHCV, HAVIGM, HBCAB, HBSAG, RPR ####[facility] Clinical Uhk85711 [place], [place] [phone] Protein mass conc 8.7 g/dL High 6.2-8.2 [facility] Comment on above: Performed By: #### C BCDIF, PT, GBCHEM, GBTSH, LIPA, MG, GBHCV, HAVIGM, HBCAB, HBSAG, RPR ####[facility] Clinical Ztt03000 [place], [place] [phone] Sodium molar conc 132 mmol/L Low 137-145 [facility] Comment on above: Performed By: #### C BCDIF, PT, GBCHEM, GBTSH, LIPA, MG, GBHCV, HAVIGM, HBCAB, HBSAG, RPR ####[facility] Clinical Him82806 [place], [place] [phone] Triglyceride mass conc 160 mg/dL High 35-150 [facility] Comment on above: Performed By: #### C BCDIF, PT, GBCHEM, GBTSH, LIPA, MG, GBHCV, HAVIGM, HBCAB, HBSAG, RPR ####[facility] Clinical Rpq27227 [facility], [place] [phone] Urate mass conc 7.2 mg/dL Normal 3.5-8.5 [facility] Comment on above: Performed By: #### C BCDIF, PT, GBCHEM, GBTSH, LIPA, MG, GBHCV, HAVIGM, HBCAB, HBSAG, RPR ####[facility] Clinical Agb09168 [facility], [place] [phone] Urea nitrogen mass conc 15 mg/dL Normal 9-20 [facility] Comment on above: Performed By: #### C BCDIF, PT, GBCHEM, GBTSH, LIPA, MG, GBHCV, HAVIGM, HBCAB, HBSAG, RPR ####[facility] Clinical [id number] [facility], [place] [phone] [facility] Hep C Abon 018 [facility] Hep C Ab Nonreactive Normal Nonreactive [facility] Comment on above: Performed By: #### C BCDIF, PT, GBCHEM, GBTSH, LIPA, MG, GBHCV, HAVIGM, HBCAB, HBSAG, RPR ####[facility] Clinical [id number] [facility], [place] [phone] [facility] TSHon 04-24-2018 Thyrotropin Qn 3.280 uU/mL Normal 0.465-4.680 [facility] Comment on above: Performed By: #### C BCDIF, PT, GBCHEM, GBTSH, LIPA, MG, GBHCV, HAVIGM, HBCAB, HBSAG, RPR ####[facility] Clinical Fyg30941 [facility] [place] [phone] Hep A IgM Antibodyon 018 Hep A IgM Antibody Nonreactive Normal Nonreactive [facility] Comment on above: Performed By: #### C BCDIF, PT, GBCHEM, GBTSH, LIPA, MG, GBHCV, HAVIGM, HBCAB, HBSAG, RPR ####[facility] Clinical Wjq12286 [place], [place] [phone] Hep B Core Total Abon 2017 Hep B Core Total Ab Nonreactive Normal Nonreactive [facility] Comment on above: Performed By: #### C BCDIF, PT, GBCHEM, GBTSH, LIPA, MG, GBHCV, HAVIGM, HBCAB, HBSAG, RPR ####[facility] Clinical Goc42989 [facility], [place] [phone] Hep B Surf Antigenon 018 Hep B Surf Antigen Nonreactive Normal Nonreactive [facility] Comment on above: Performed By: #### C BCDIF, PT, GBCHEM, GBTSH, LIPA, MG, GBHCV, HAVIGM, HBCAB, HBSAG, RPR ####[facility] Clinical Xmp23086 [facility], [place] [phone] Lipaseon 04-24-2018 Lipase enzyme act/vol 1540 U/L High 23-300 [facility] Comment on above: Performed By: #### C BCDIF, PT, GBCHEM, GBTSH, LIPA, MG, GBHCV, HAVIGM, HBCAB, HBSAG, RPR ####[facility] Ykk16849 [facility], [place] [phone] Magnesiumon 04-24-2018 Magnesium mass conc 2.0 mg/dL Normal 1.3-2.3 [facility] Comment on above: Performed By: #### C BCDIF, PT, GBCHEM, GBTSH, LIPA, MG, GBHCV, HAVIGM, HBCAB, HBSAG, RPR ####[facility] Clinical Gzd91248 [facility] [place] [phone] Protimeon 04-24-2018 INR Coag RelTime (Bld) 1.0 {INR} Normal 0.6-1.1 [facility] Comment on above: Result Comment: The PT/INR can be used to monitor the therapeutic effect of oral anticoagulants, such as warfarin. The recommended therapeutic range is an INR of 2.0 to 3.0 for most applications, including treatment and prevention of venous thrombosis,treatment of pulmonary embolism, prevention of strokes/TIA in patients with atrial fibrillation, prevention and treatment of thrombosis in patients with a lupus anticoagulant and prevention of systemic embolization in patients with heart valve disorders.There are certain conditions where clinicians may decide to use a lower or higher therapeutic range eg. 1.5 to 1.9 for secondary prevention of idiopathic venous thromboembolism and an INR 2.5 to 3.5 for older generation mechanical heart valves.Georgeell, et al. Chest 2004: 126:204S to 233S. Performed By: #### C BCDIF, PT, GBCHEM, GBTSH, LIPA, MG, GBHCV, HAVIGM, HBCAB, HBSAG, RPR ####[facility] [id number] [place], [place] [phone] PT Sec 12.3 sec Normal 11.8-14.1 [facility] Comment on above: Performed By: #### C BCDIF, PT, GBCHEM, GBTSH, LIPA, MG, GBHCV, HAVIGM, HBCAB, HBSAG, RPR ####[facility] Bdw69953 [place], [place] [phone] Coding Summary.on 10-29-2017 Coding Summary. CODING DATE: 018 FINAL [facility] STATUS: Home (Routine DC) PAYOR: Commercial Insurance APC DESCRIPTION 5311 Level 1 Lower GI Procedures ADMIT DX: REASON FOR VISIT DX: K62.5 Hemorrhage of anus and rectum FINAL DX: PRINCIPAL: K62.5 Hemorrhage of anus and rectum SECONDARY: K64.8 Other hemorrhoids R19.7 Diarrhea, unspecified R63.4 Abnormal weight loss F10.10 Alcohol abuse, uncomplicated Z87.19 Personal history of other diseases of the digestive system Z79.82 long-term (current) use of aspirin F17.210 Nicotine dependence, cigarettes, uncomplicated PYMT PROC APC STAT DESCRIPTION DOCTOR NAME DATE 16515 7379 T Sigmoidoscopy, flexible; Nilesh Schulte MD 10/24/2017 diagnostic, including collection of specimen(s) by brushing or washing, when performed (separate procedure) 97027 Anesthesia for lower Nilesh Schulte MD 10/24/2017 intestinal endoscopic procedures, endoscope introduced distal to duodenum; not otherwise specified NOTE: The code number assigned matches the documented diagnosis and / or procedure in the patient's chart. However, the narrative phrase printed from the coding software may appear abbreviated, or result in slightly different terminology. Coded By: Joyce Barney Date Saved: 10/29/2017 09:43 am Normal [facility] Main OR Intraoperative Recor don 10-25-2017 Main OR Intraoperative Record IntraOp Document Type FT Summary Primary Physician: Nilesh Schulte MD Finalized Date/Time: 10/25/17 11:57:16 Pt. Name: KIRILL ECHOLS/Sex: 1965 Male Med Rec #: [id number] Physician: Nilesh Schulte MD Financial #: [id number] Pt. Type: O Room/Bed: / Admit/Disch: 10/24/17 11:59:23 - 10/24/17 23:59:59 Institution: Case Times FT Entry 1 Patient Times In Room 10/24/17 13:16:00 Out Room 10/24/17 13:32:00 Procedure Times Start 10/24/17 13:26:00 Stop 10/24/17 13:29:00 Anesthesia Times Start 10/24/17 13:16:00 Stop 10/24/17 13:32:00 Last Modified By: Adilia Bhatia CST 10/24/17 13:34:15 General Comments: 10/25/2017 Charges opened to review and send Fr[place] [facility] Case Attendance FT Entry 1 Entry 2 Entry 3 Case Attendee Stacey Hayes MD, Nilesh Churchill RN, Dana Role Performed Scrub - Other Surgeon - Primary Outpatient Physical Therapist Assistant - Primary Time In 10/24/17 13:16:00 10/24/17 13:16:00 10/24/17 13:16:00 Time Out 10/24/17 13:32:00 10/24/17 13:32:00 10/24/17 13:32:00 Procedure SIGMOIDOSCOPY(.) SIGMOIDOSCOPY(.) SIGMOIDOSCOPY(.) Comments help in room Last Modified By: Zhao GIBSON, Dana Churchill RN, Dana Churchill RN, Dana 10/24/17 13:33:50 10/24/17 13:33:50 10/24/17 13:33:50 Entry 4 Entry 5 Case Attendee Lisset Chambers CST, Karen Role Performed Anesthesiologist Scrub - Primary [employer] Developer Time In 10/24/17 13:16:00 10/24/17 13:16:00 Time Out 10/24/17 13:32:00 10/24/17 13:32:00 Procedure SIGMOIDOSCOPY(.) SIGMOIDOSCOPY(.) Comments Dr. Harrington supervising Last Modified By: Dana Churchill RN, RN, Dana 10/24/17 13:33:50 10/24/17 13:33:50 Perioperative Protocols FT Pre-Care Text: Implements protective measures prior to operative or invasive procedure, confirms identity before the operative or invasive procedure, verifies operative procedure, surgical site, and laterality Entry 1 Procedure(s) SIGMOIDOSCOPY(.) Patient Identity Birthday, ID Band Verified (select at Check, Patient least 2): Participation Consents / H and P Anesthesia Consent, Operative Site N/A Verified HandP, Surgery/Procedure Marking Verified Consent Surgical Site Yes Laterality Verified n/a Verified Procedure Verified Yes Correct Patient Yes Position Verified Availability Equipment, Medication Prep Dry n/a Verified (If Applicable) PreOp Antibiotic No Time Out Stacey Hayes Salam Given Nilesh Cuevas MD, Workman RN, Leno Cortez Carly C Time Out Complete 10/24/17 13:26:00 Outcomes Met? Yes Last Modified By: Dana Churchill RN 10/24/17 13:27:27 Post-Care Text: The patient is free from signs and symptoms of injury caused by extraneous objects Allergy Information FT Pre-Care Text: Verifies allergies Entry 1 Allergies Reviewed? Yes Allergies Reviewed Self/Patient With Outcomes Met? Yes Last Modified By: Dana Churchill RN 10/24/17 10:51:49 Post-Care Text: The patient received appropriate medication(s) safely administered during the perioperative period Surgical Procedures FT Entry 1 Procedure Description Procedure SIGMOIDOSCOPY Modifiers . Surgeon Description SIGMOIDOSCOPY Primary Procedure Yes Primary Surgeon Nilesh Schulte MD Start 10/24/17 13:27:00 Stop 10/24/17 13:29:00 Anesthesia Type General Surgical Service Gastroenterology Wound Class 2 - Clean-Contaminated Last Modified By: Dana Churchill RN 10/24/17 13:29:34 General Case Data FT Pre-Care Text: Classifies surgical wound, implements aseptic technique, initiates traffic control Entry 1 Case Information OR ENDO 1 FT Case Level Level 2 Wound Class 2 - Clean-Contaminated Specialty Gastroenterology ASA Class 2 Preop Diagnosis RECTAL HEMORRHAGE, Postop Same As Preop No DIARRHEA, COLITIS, WEIGHT LOSS Postop Diagnosis Internal hemorrhoids. Outcomes Met? Yes Last Modified By: Dana Churchill RN 10/24/17 13:29:46 Post-Care Text: The patient is free from signs and symptoms of infection Skin Assessment (Pre Procedure) FT Pre-Care Text: Implements protective measures to prevent skin/ tissue injury due to thermal or mechanical sources Evaluates for signs and symptoms of physical injury to skin and tissue Entry 1 Skin Integrity Intact, Pinson, Warm, and Skin Abnormality No Dry Outcomes Met? Yes Last Modified By: Dana Churchill RN 10/24/17 10:53:27 Post-Care Text: The patient is free from signs and symptoms of injury caused by extraneous objects Patient Positioning FT Pre-Care Text: Identifies physical alterations that require additional precautions for procedure-specific positioning, verifies presence of prosthetics or corrective devices, positions the patient, evaluates the patient for signs and symptoms of injury as a result of positioning Entry 1 Procedure SIGMOIDOSCOPY(.) Body Position Lateral, right side up Feet Uncrossed? Yes Left Arm Position Resting at Side Right Arm Position Resting at Side Left Leg Position Extended Right Leg Position Extended Positioning Device Pillow Under Head Large, Safety Strap Press Points Checked Yes By Lisset Chambers, Dana Churchill RN Outcomes Met? Yes Last Modified By: Dana Churchill RN 10/24/17 10:58:15 Post-Care Text: The patient is free from signs and symptoms of injury related to positioning Patient Care Devices FT Pre-Care Text: Implements protective measures to prevent skin/ tissue injury due to thermal or mechanical sources Entry 1 Entry 2 Equipment Type ENDOSCOPY VIDEO MONITOR CHARGE SURGERY SYSTEM[F] [F] Equipment Number [id number] Equipment Setting Outcomes Met? Yes Yes Last Modified By: Dana Churchill RN, RN, Angela 10/24/17 10:56:01 10/24/17 10:56:01 Post-Care Text: The patient is free from signs and symptoms of injury caused by extraneous objects Transport To OR FT Pre-Care Text: Transports according to individual needs. Evaluates for signs and symptoms of skin and tissue injury as a result of transfer or transport Entry 1 Via Cart By Dana Churchill RN Safety Precautions Side Rails Up Outcomes Met? Yes Last Modified By: Dana Churchill RN 10/24/17 10:56:07 Post-Care Text: The patient is free from signs and symptoms of injury related to transfer/transport Departure From OR FT Pre-Care Text: Transports according to individual needs. Evaluates for signs and symptoms of skin and tissue injury as a result of transfer or transport. Entry 1 Via Cart Safety Precautions Side Rails Up PostOp Destination PACU Transported By Dana Churchill RN Patient Status Stable Skin. Condition Intact, Pinson, Warm, and Dry Airway Maintenance Oxygen in Use? No Airway Device N/A Outcomes Met? 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 Yes Verified Last Modified By: Dana Churchill RN 10/24/17 10:56:32 Post-Care Text: The patient received appropriate medication(s) safely administered during the perioperative period For [facility] please see scanned medication reconcilliation form for medications used at the field during the procedure. Case Comments Finalized By: Adilia Bhatia CST Document Signatures Signed By: Dana Churchill RN 10/24/17 13:34 Dana Churchill RN 10/24/17 13:33 Adilia Bhatia CST 10/25/17 11:57 Normal [facility] History and Physicalon 10-24 History and Physical Date: 10/10/2017 2:4 5 PMPatient Name: Kirill Cao #: [id number]: MaleDOB (age): 1965 (52)Provider: MODE Gordonmarvin Physician: Mundo [address] [place] [address] (phone) (phone) (fax)Chief Complaint: Dr brown for Abdominal pain and pancreatitisHistory of Present Illness:52 years old -Mongolian male, was last seen in December 2015 for elevated LFTs but he did not follow up with us at thattime, he has a history of heavy alcohol use, he had multiple episodes of colon-induced pancreatitis, most recently was fewweeks ago, he had a prior history of anemia with hemoglobin of 7 and 2016, EGD showed gastritis, colonoscopy was normalexcept for small hiatal hernia, now reports generalized abdominal pain and sporadic rectal bleeding, described as bright redblood per rectum mixed with stool, he continues to drink alcohol despite multiple episodes of pancreatitis, he reports 20pounds weight lossPast Medical HistoryMedical Conditions: SmokerSurgical Procedures: VasectomyMedications: Adult Aspirin Regimen 81 mgalfuzosin 10 mg TAKE 1 TABLET BY MOUTH DAILYbupropion HCl 150 mg TAKE 1 TABLET BY MOUTH EVERY MORNINGhydrochlorothiazi de 25 mg TAKE 1 TABLET BY MOUTH EVERY DAYlosartan 50 mg TAKE 1 TABLET BY MOUTH EVERY DAYpantoprazole 40 mg TAKE 1 TABLET BY MOUTH EVERY DAYquetiapine 25 mg TAKE 1 TABLET BY MOUTH AT BEDTIMEAllergies: Patient has no known allergies or drug allergiesSocial HistoryAlcohol: Beer.Tobacco: Current every day smokerDrugs: NoneExercise: NoneCaffeine: NoneMarital Status: MarriedFamily History No Knowledge Of Family HistoryReview of Systems:Cardiovascular: Denies chest pain, dyspnea with exercise, irregular heart beat, orthopnea, palpitations, peripheraledema, syncope.Constitutional: Denies fatigue, fever, loss of appetite, malaise, sweats, weight gain, Arthritis, weight loss, exhaustion,chills.Eyes: Denies double vision, loss of vision, photophobia, blurred vision, pain, wearing glasses/contacts.Gastroi ntestinal: Complains of abdominal pain. Denies abdominal swelling, anal rectal pain, belching, black stools,bloating, blood in stools, change in bowel habits, constipation, dairy intolerance, diarrhea, difficultyswallowing, gas, heartburn, hemmorrhoids, jaundice, mucous in stool, nausea, rectal bleeding, rectalurgency, stool incontinence, stomach cramps, straining, vomiting, weight loss.Printed on 10/19/2017 Kirill Echols, [id number], 1965 Page 1 of 4Printed on 10/19/2017 Kirill Echols, [id number], 1965Genitourinary: Denies dark urine, decrease in urine flow, dysuria, frequent urinary infections, frequent urination,hematuria, impotence, nocturia, urethral discharge or incontinence, sexual difficulty, sexual transmitteddiseases, kidney disease, kidney stones, pain with urination.Respiratory: Denies asthma, cough, dyspnea, excessive sputum, hemoptisis, shortness of breath with exercise,wheezing, coughing up blood.Vital Signs:BP(mmHg)Pulse(ppm) Rhythm Weight (lbs/oz) Height (ft/in) BMI Resp/min Fsvs468/79 91 Regular 145 / 6 / 19.13 12 98.3 (F)Physical Exam:Constitutional:Appe arance: well developed, well nourished, normal habitus, no deformities, in no acute distress..Skin:Inspectio n: no rashes, ulcers, icterus or other lesions; no clubbing or telangiectasias..Eyes:Co njunctivae/lids: normal conjunctivae and lids..Pupils/irises: symmetrical, normoreactive to light, normal accommodation and size..ENMT:Hearing: within normal limits.Lips/teeth/gums: normal oral mucosa,lips and gums; good dentition.Neck:Neck: normal motion, central trachea.Respiratory:Perc ussion: thorax normoresonant.Auscultati on: normal breath sounds; no rubs, wheezes, rale or ronchi.Cardiovascular:Au scultation: normal rhythm, S1 and S2; no rubs, murmurs or gallop.Peripheral: no edema, varicocities or cyanosis..Gastrointestin al/Abdomen:Abdomen: normal consistency and bowel sounds; no tenderness or masses..Liver/Spleen: normal size and consistency, not palpable.Hernias: no hernias appreciated.Musculoskele hakeem:Gait/station: normal gait and station.Digits/nails: no clubbing, cyanosis, petechiae or other inflammatory conditions.Psychiatric:J udgment/insight: within normal limits.Orientation: oriented to time, space and person.Memory: within normal limits for recent and remote events.Mood and affect: no evidence of depression, anxiety or agitation.Impressions: Rectal hemorrhagePancreatitis Alcohol induced, acuteDiarrhea/ColitisWei ght loss, rule out pancreatic insufficiency, we will get old records from [facility] to evaluatefor recent computed tomography scan, consider repeating EGD and colonoscopy if still negativeAlcohol abuse, advised to stop alcohol completelyPlan: Flexible Sigmoidoscopy will be performed at [facility].Labs Ordered: CBCLabs Ordered: Chem 6 (BUN, Creatinine, LYTES)Labs Ordered: Hepatic Panel (ALP, T/Dbil, Alb, AST, ALT, TP A/G Ratio)Stool Ordered: Fecal ElastaseObtain all old recordsRisk & Medical Necessity: Diagnosis and management options are Minimal. The amount of data reviewed and/orordered is Minimal/None. The level of risk is Minimal.Printed on 10/19/2017 Kirill Onesimo [id number], 1965 Page 2 of 4Printed on 10/19/2017 Kirill Onesimo [id number], 1965Nilesh Schulte MD Kirill Onesimo [id number], 1965 Page 3 of 4Printed on 10/19/2017 Kirill Echols [id number], 1965Printed on 10/19/2017 Kirill Echols [id number], 1965 Page 4 of 4Printed on 10/19/2017 Kirill Echols [id number], 1965no change Normal [facility] Comment on above: Result Comment: Elec tronically Signed By: Nilesh Schulte MD\.br\Date and Time Signed: 10/24/17 13:25 EDT Inpatient Patient Summaryon 10-24-2017 In[facility] Dis[facility] InstructionsPERSON INFORMATION Name: KIRILL ECHOLS PHYSICIANS Admitting Physician: Jerson Schulte MDttending Physician: Nilesh Schulte MD PCP: Lucie ANDREA MD Diagnosis: Internal hemorrhoids Comment: PATIENT EDUCATION INFORMATIONInstructions: Flexible Sigmoidoscopy, Care AfterMedication Leaflets:Follow up:With: Address: When: Nilesh Christianarina [facility], [address] [place] [address] Business (1) Comments: Keep scheduled appointment Call for any problems. Call for severe abdominal pain MEDICATION LISTComment: Normal [facility] Main OR PACU I Recordon 10-12 Main OR PACU I Record PACU Phase I Docum ent Type FT Summary Primary Physician: Nilesh Schulte MD Finalized Date/Time: 10/24/17 14:10:53 Pt. Name: KIRILL ECHOLS/Sex: 1965 Male Med Rec #: [id number] Physician: Nilesh Schulte MD Financial #: [id number] Pt. Type: O Room/Bed: / Admit/Disch: 10/24/17 11:59:23 - Institution: Case Times PACU I FT Pre-Care Text: Identifies barriers to communication and implements measures to provide psychological support Develops individualized plan of care, and ensures continuity of care Maintains patient's dignity and privacy, and maintains patient confidentiality Identifies and reports philosophical, cultural, and spiritual beliefs and values Identifies individual values and wishes concerning care Implements aseptic technique, and administers prescribed antibiotic therapy and immunizing agents as ordered Evaluates postoperative tissue perfusion Implements thermoregulation measures, and monitors body temperature Evaluates postoperative respiratory status Evaluates postoperative cardiac status Evaluates postoperative neurological status Assesses pain control, collaborated in initiating patient-controlled analgesia and implements alternative methods of pain control Verifies allergies, administers prescribed medications and solutions, evaluates response to medications Entry 1 In PACU I 10/24/17 13:33:00 Discharge from PACU 10/24/17 14:03:00 I Outcomes Met? Yes Last Modified By: Sandeep GIBSON, Cherry Mosqueda 10/24/17 14:10:25 Post-Care Text: The patient demonstrates knowledge of the expected response to the operative or invasive procedure The patient's care is consistent with the individualized perioperative plan of care The patient's right to privacy is maintained The patient's value system, lifestyle, ethnicity, and culture are considered, respected, and incorporated into the perioperative plan of care The patient participates in decisions affecting his or her perioperative plan of care The patient is free from signs and symptoms of infection The patient has wound/tissue perfusion consistent with or improved from baseline levels established preoperatively The patient is at or returning to normothermia at the conclusion of the immediate postoperative period The patient's respiratory function is consistent with or improved from baseline levels established preoperatively The patient's cardiovascular status is consistent with or improved from baseline levels established preoperatively The patient's cardiovascular status is consistent with or improved from baseline levels established preoperatively The patient demonstrates and/or reports adequate pain control throughout the perioperative period The patient received appropriate medication(s), safely administered during the perioperative period Acuity Level PACU I FT Entry 1 Start Time 10/24/17 13:33:00 Stop Time 10/24/17 14:03:00 Acuity Level Acuity Level I Last Modified By: Cherry Hopkins RN 10/24/17 14:10:39 Finalized By: Cherry Hopkins RN Document Signatures Signed By: Cherry Hopkins RN 10/24/17 14:10 Normal [facility] Main OR Preoperative Recordo n 10-24-2017 Main OR Preoperative Record Holding Area Document Type FT Summary Primary Physician: Nilesh Schulte MD Finalized Date/Time: 10/24/17 12:22:15 Pt. Name: KIRILL ECHOLS/Sex: 1965 Male Med Rec #: [id number] Physician: Nilesh Schulte MD Financial #: [id number] Pt. Type: O Room/Bed: / Admit/Disch: 10/24/17 11:59:23 - Institution: Case Times Holding FT Pre-Care Text: Verifies consent for planned procedure, identifies individual values and wishes concerning care, includes family members in perioperative teaching Secures patient's records' belongings, and valuables, maintains patient's dignity and privacy, and maintains patient confidentiality Entry 1 In Holding 10/24/17 12:15:00 Outcomes Met? Yes Last Modified By: Nikky David RN 10/24/17 12:16:36 Post-Care Text: The patient participates in decisions affecting his or her perioperative plan of care The patient's right to privacy is maintained Surgery Checklist FT Entry 1 Patient Birthday, ID Band Procedure History and Physical, Identification: Check, Patient Verification: Surgical Consent, With Participation Patient NPO after Midnight: Yes Personal Items: Dentures, Glasses Personal Items upper denture Complaints of Pain: Yes Comment: Pain Comment: llq 07/21 Operative Site n/a Marking: Availability Equipment Verified: Does Patient Smoke Yes If Yes to Smoking. 1 ppd Cigars or Cigarettes. How much per day? Patient states Yes Comment - Adult spouse postop adult Supervision supervision available Case Cancelled in No Holding Area see comments below for reason Last Modified By: Nikky David RN 10/24/17 12:22:13 Finalized By: Nikky David RN Document Signatures Signed By: Nikky David RN 10/24/17 12:22 Normal [facility] Patient Education - Texton 0 10-24-2017 Patient Education - Text ProceduresFlexible Sigmoidoscopy, Care AfterRefer to this sheet in the next few weeks. These instructions provide you with information on caring for yourself after your procedure. Your health care provider may also give you more specific instructions. Your treatment has been planned according to current medical practices, but problems sometimes occur. Call your health care provider if you have any problems or questions after your procedure.WHAT TO EXPECT AFTER THE PROCEDUREAfter your procedure, it is typical to have the following: ? Abdominal cramps.? Bloating.? A small amount of rectal bleeding if you had a biopsy.HOME CARE INSTRUCTIONS? Only take [id number] or prescription medicines for pain, fever, or discomfort as directed by your health care provider.? Resume your normal diet and activities as directed by your health care provider. SEEK MEDICAL CARE IF:? You have abdominal pain or cramping that lasts longer than 1 hour after the procedure.? You continue to have small amounts of rectal bleeding after 24 hours.? You have nausea or vomiting.? You feel weak or dizzy.SEEK IMMEDIATE MEDICAL CARE IF:? You have a fever.? You pass large blood clots or see a large amount of blood in the toilet after having a bowel movement. This may also occur 10?14 days after the procedure. It is more likely if you had a biopsy.? You develop abdominal pain that is not relieved with medicine or your abdominal pain gets worse.? You have nausea or vomiting for more than 24 hours after the procedure.Document Released: 05/05/2014 Document Reviewed: 05/05/2014ExitCare? Patient Information ?2015 [employer]. This information is not intended to replace advice given to you by your health care provider. Make sure you discuss any questions you have with your health care provider. [facility] Progress Note-Physicianon Progress Note-Physician Patient: KIRILL ECHOLS Age: 52 years Sex: Male : 1965 Associated Diagnoses: None Author: Cuba Harrington DO Postoperative Information Post Operative Note: Post Anesthesia Care Unit. Anesthetic utilized: General. Physical Examination Vitals Signs (last 24 hrs) Last Charted Minimum MaximumTemp 36.7 (OCT 24 13:33) 36.7 (OCT 24 13:33) 37.0 (OCT 24 12:22)Heart Rate 75 (OCT 24 13:55) 71 (OCT 24 13:33) 81 (OCT 13 13:50)Resp Rate 14 (OCT 24 13:55) 10 (OCT 24 12:22) 16 (OCT 13 13:35)SBP 131 (OCT 13 13:55) 108 (OCT 13 13:33) 143 (OCT 13 13:17)DBP H 94 (OCT 13 13:55) 74 (OCT 13 13:35) H 105 (OCT 13 13:50)SpO2 98 (OCT 13 13:55) 98 (OCT 13 12:22) 100 (OCT 13 13:20) Pain assessment: Pain Assessment 10/24/2017 13:55 EDT Pain Symptoms Self Report Yes, able to self report Primary Pain Location Abdomen Primary Pain Laterality Left Primary Pain Radiation No Patient Preferred Pain Tool Numeric rating Numeric Pain Scale 5 = Moderate pain Numeric Pain Score 5 10/24/2017 13:33 EDT Pain Symptoms Self Report Yes, able to self report Primary Pain Location Abdomen Primary Pain Laterality Left Primary Pain Radiation No Patient Preferred Pain Tool Numeric rating Numeric Pain Scale 4 Numeric Pain Score 4 . General: No acute distress. Respiratory: Respirations are non-labored. Cardiovascular: Regular rhythm, Normal peripheral perfusion. Neurologic: baseline. Review / Management Condition: Stable. Assessment Anesthetic outcome No anesthetic complications noted. Adequate pain relief. Adequate hydration, no unrelenting nausea and vomiting. Plan Transfer/ Discharge: Patient can be discharged from PACU when criteria met. [facility] Comment on above: Result Comment: Elec tronically Signed By: Cuba Harrington DO\.br\Date and Time Signed: 10/24/17 15:19 EDT Progress Note-Physician Patient: KIRILL ECHOLS Age: 52 years Sex: Male : 1965 Associated Diagnoses: None Author: Cuba Harrington DO Preoperative Information Anesthesia Preop Information NPO guidelines met. Anesthesia history: Patient History: No personal or family history of anesthetic problems.. Re-eval prior to induction: Inital eval reviewed: No significant interval change. Review of Systems Constitutional: Negative. Cardiovascular: Negative, CV assessment performed. Respiratory: Negative, breathing at baseline. Neurologic: Negative. Health Status Allergies: Allergic Reactions (Selected)Severity Not DocumentedLisinopril- Angioedema., Allergies (1) Active Reactionlisinopril angioedema Current medications: (Selected) Inpatient MedicationsOrderedSodium Chloride 0.9% IV Renu 1000 mL 1,000 mL: 1,000 mL, IV, 20 mL/hr, Routine, Start date 10/24/17 12:14:00 EDT, 50 hour(s), Total volume (mL): 1,000Documented MedicationsDocumentedalf uzosin: 10 mg, Oral, Daily, Refills(s) 0, Urinary discomfortaspirin: 81 mg, Oral, Every other day, Refills(s) 0, ProphylaxisbuPROPion: 150 mg, Oral, Daily, Refills(s) 0, Depressionhydrochlorothi azide: 25 mg, Oral, Daily, Refills(s) 0, High blood pressurelosartan: 25 mg, Oral, Daily, Refills(s) 0, High blood pressureomeprazole: 40 mg, Oral, Daily, Refills(s) 0, Control of stomach acidquetiapine: 25 mg, Oral, Bedtime, Refills(s) 0, Depression, Medications (1) ActiveScheduled: (0)Continuous: (1)Sodium Chloride 0.9% 1,000 mL 1,000 mL, IV, 20 mL/hrPRN: (0) Problem list: No problem items selected or recorded., No qualifying data available Histories Past Medical History: No active or resolved past medical history items have been selected or recorded. Family History: No family history items have been selected or recorded. Procedure history: No active procedure history items have been selected or recorded. Social History Social & Psychosocial HabitsNo Data Available. Physical Examination Vital Signs 10/24/2017 12:22 EDT Temperature Temporal Artery 37.0 DegC Heart Rate Monitored 78 bpm Respiratory Rate Monitored 10 br/min Systolic Blood Pressure 131 mmHg Diastolic Blood Pressure 86 mmHg Blood Pressure Location Left arm SpO2 98 % Vitals Signs (last 24 hrs) Last Charted Minimum MaximumTemp 37.0 (OCT 24 12:22) 37.0 (OCT 24 12:22) 37.0 (OCT 24 12:22)Heart Rate 78 (OCT 24 12:22) 78 (OCT 24 12:22) 78 (OCT 24 12:22)Resp Rate 10 (OCT 24 12:22) 10 (OCT 24 12:22) 10 (OCT 24 12:22)SBP 131 (OCT 24 12:22) 131 (OCT 24 12:22) 131 (OCT 24 12:22)DBP 86 (OCT 24 12:22) 86 (OCT 24 12:22) 86 (OCT 24 12:22)SpO2 98 (OCT 24 12:22) 98 (OCT 24 12:22) 98 (OCT 24 12:22) Measurements from flowsheet : Measurements 10/24/2017 12:22 EDT Height/Length Measured 185.42 cm Body Mass Index Measured 19.14 kg/m2 Weight Measured 65.8 kg Airway: Mallampati classification: Normal oral/pharyngeal anatomy. Respiratory: Respirations are non-labored. Cardiovascular: normal peripheral perfusion. Neurologic: Alert. Review / Management Results review: No qualifying data available. Condition: Stable. Plan [place] [employer] Anesthesiologists (ASA) physical status classification: Class II. Anesthetic Preoperative Plan Anesthesia: General. , Monitored anesthesia care. Anesthetic plan, risks, benefits, and alternatives discussed with the patient and/or family. Patient verbalized understanding. Risks, benefits, alternatives discussed. Questions answered. . Normal [facility] Comment on above: Result Comment: Elec tronically Signed By: Cuba Harrington DO\Date and Time Signed: 10/24/17 12:38 EDT Vital Signs Date Time Vital Sign Value Performing Clinician Facility 06-29-2023 10:54-0500 Body temperature 97.9 [degF] MD Rylan Andrea Work Phone: [facility] 06-29-2023 10:54-0500 Body weight 69.85 kg MD Rylan Andrea Work Phone: [facility] 06-29-2023 10:54-0500 Diastolic blood pressure 88 mm[Hg] MD Rylan Andrea Work Phone: [facility] 06-29-2023 10:54-0500 Heart rate 88 /min MD Rylan Andrea Work Phone: [facility] 06-29-2023 10:54-0500 Respiratory rate 20 /min MD Rylan Andrea Work Phone: [facility] 06-29-2023 10:54-0500 SaO2% (BldA) [Mass fraction] 97 % MD Rylan Andrea Work Phone: [facility] 06-29-2023 10:54-0500 Systolic blood pressure 140 mm[Hg] MD Rylan Andrea Work Phone: [facility] 12-25-2022 11:05-0400 Body temperature 97.7 [degF] MD Rylan Andrea Work Phone: [facility] 12-25-2022 11:05-0400 Body weight 66.95 kg MD Rylan Andrea Work Phone: [facility] 12-25-2022 11:05-0400 Diastolic blood pressure 85 mm[Hg] MD Rylan Andrea Work Phone: [facility] 12-25-2022 11:05-0400 Heart rate 94 /min MD Rylan Andrea Work Phone: [facility] 12-25-2022 11:05-0400 Respiratory rate 18 /min MD Rylan Andrea Work Phone: [facility] 12-25-2022 11:05-0400 SaO2% (BldA) [Mass fraction] 97 % MD Rylan Andrea Work Phone: [facility] 12-25-2022 11:05-0400 Systolic blood pressure 136 mm[Hg] MD Rylan Andrea Work Phone: [facility] 11-01-2022 10:41-0400 Body temperature 97.6 [degF] MD Rylan Andrea Work Phone: [facility] 11-01-2022 10:41-0400 Body weight 68.26 kg MD Rylan Andrea Work Phone: [facility] 11-01-2022 10:41-0400 Diastolic blood pressure 82 mm[Hg] MD Rylan Andrea Work Phone: [facility] 11-01-2022 10:41-0400 Heart rate 103 /min MD Rylan Andrea Work Phone: [facility] 11-01-2022 10:41-0400 Respiratory rate 18 /min MD Rylan Andrea Work Phone: [facility] 11-01-2022 10:41-0400 SaO2% (BldA) [Mass fraction] 99 % MD Rylan Andrea Work Phone: [facility] 11-01-2022 10:41-0400 Systolic blood pressure 121 mm[Hg] MD Rylan Andrea Work Phone: [facility] 10-26-2022 12:05-0400 Body height 182.88 cm MD Rylan Andrea Work Phone: [facility] 10-26-2022 12:05-0400 Body temperature 97.6 [degF] MD Rylan Andrea Work Phone: [facility] 10-26-2022 12:05-0400 Body weight 69 kg MD Rylan Andrea Work Phone: [facility] 10-26-2022 12:05-0400 Diastolic blood pressure 77 mm[Hg] MD Rylan Andrea Work Phone: [facility] 10-26-2022 12:05-0400 Heart rate 100 /min MD Rylan Andrea Work Phone: [facility] 10-26-2022 12:05-0400 Respiratory rate 20 /min MD Rylan Andrea Work Phone: [facility] 10-26-2022 12:05-0400 SaO2% (BldA) [Mass fraction] 98 % MD Rylan Andrea Work Phone: [facility] 10-26-2022 12:05-0400 Systolic blood pressure 120 mm[Hg] MD Rylan Andrea Work Phone: [facility] 09-19-2022 09:33-0400 Body weight 70.39 kg MD Rylan Andrea Work Phone: [facility] 09-19-2022 09:33-0400 Diastolic blood pressure 85 mm[Hg] MD Rylan Andrea Work Phone: [facility] 09-19-2022 09:33-0400 Heart rate 85 /min MD Rylan Andrea Work Phone: [facility] 09-19-2022 09:33-0400 Respiratory rate 20 /min MD Rylan Andrea Work Phone: [facility] 09-19-2022 09:33-0400 SaO2% (BldA) [Mass fraction] 97 % MD Rylan Andrea Work Phone: [facility] 09-19-2022 09:33-0400 Systolic blood pressure 128 mm[Hg] MD Rylan Andrea Work Phone: [facility] 09-04-2022 11:26-0400 Body temperature 98.6 [degF] MD Rylan Andrea Work Phone: [facility] 06-22-2022 13:07-0500 Body height 182.88 cm MD Rylan Andrea Work Phone: [facility] 06-22-2022 13:07-0500 Body temperature 98 [degF] MD Rylan Andrea Work Phone: [facility] 06-22-2022 13:07-0500 Body weight 73.2 kg MD Rylan Andrea Work Phone: [facility] 06-22-2022 13:07-0500 Diastolic blood pressure 88 mm[Hg] MD Rylan Andrea Work Phone: [facility] 06-22-2022 13:07-0500 Heart rate 112 /min MD Rylan Andrea Work Phone: [facility] 06-22-2022 13:07-0500 Respiratory rate 20 /min MD Rylan Andrea Work Phone: [facility] 06-22-2022 13:07-0500 SaO2% (BldA) [Mass fraction] 99 % MD Rylan Andrea Work Phone: [facility] 06-22-2022 13:07-0500 Systolic blood pressure 137 mm[Hg] MD Rylan Andrea Work Phone: [facility] 06-17-2022 12:00-0500 Body temperature 98.1 [degF] MD Rylan Andrea Work Phone: [facility] 06-17-2022 12:00-0500 Diastolic blood pressure 91 mm[Hg] MD Rylan Andrea Work Phone: [facility] 06-17-2022 12:00-0500 Heart rate 94 /min MD Rylan Andrea Work Phone: [facility] 06-17-2022 12:00-0500 Respiratory rate 20 /min MD Rylan Andrea Work Phone: [facility] 06-17-2022 12:00-0500 SaO2% (BldA) [Mass fraction] 97 % MD Rylan Andrea Work Phone: [facility] 06-17-2022 12:00-0500 Systolic blood pressure 142 mm[Hg] MD Rylan Andrea Work Phone: [facility] 06-16-2022 09:51-0500 Body height 182.88 cm MD Rylan Andrea Work Phone: [facility] 06-16-2022 09:51-0500 Body mass index (BMI) [Ratio] 20.2 kg/m2 MD Rylan Andrea Work Phone: [facility] 06-16-2022 09:51-0500 Body weight 67.9 kg MD Rylan Andrea Work Phone: [facility] 06-15-2022 12:00-0500 Body height 185.42 cm Rachid Chase Other [employer] Other 06-15-2022 12:00-0500 Body mass index (BMI) [Ratio] 19.63 kg/m2 Rachid Chase Other [employer] Other 06-15-2022 12:00-0500 Body temperature 97 [degF] Rachid Chase Other [employer] Other 06-15-2022 12:00-0500 Body weight 67.5 kg Rachid Chase Other [employer] Other 06-15-2022 12:00-0500 Diastolic blood pressure 82 mm[Hg] Rachid Chase Other [employer] Other 06-15-2022 12:00-0500 Respiratory rate 20 /min Rachid Chase Other [employer] Other 06-15-2022 12:00-0500 SaO2% (BldA) [Mass fraction] 98 % Rachid Chase Other [employer] Other 06-15-2022 12:00-0500 Systolic blood pressure 114 mm[Hg] Celsoal Chaban Other [employer] Other 05-31-2022 15:30-0500 Body height 185.42 cm Rachid Blandban Other [employer] Other 05-31-2022 15:30-0500 Body mass index (BMI) [Ratio] 19.92 kg/m2 Rachid Blandban Other [employer] Other 05-31-2022 15:30-0500 Body temperature 97.6 [degF] Rachid Blandban Other [employer] Other 05-31-2022 15:30-0500 Body weight 68.49 kg Rachid Blandban Other [employer] Other 05-31-2022 15:30-0500 Diastolic blood pressure 80 mm[Hg] Rachid Chaban Other [employer] Other 05-31-2022 15:30-0500 Respiratory rate 20 /min Rachid Blandban Other [employer] Other 05-31-2022 15:30-0500 SaO2% (BldA) [Mass fraction] 98 % Rachid Blandban Other [employer] Other 05-31-2022 15:30-0500 Systolic blood pressure 122 mm[Hg] Rachid Chaban Other [employer] Other 04-21-2022 09:50-0500 Diastolic blood pressure 74 mm[Hg] MD Rylan Andrea Work Phone: [facility] 04-21-2022 09:50-0500 Heart rate 80 /min MD Rylan Andrea Work Phone: [facility] 04-21-2022 09:50-0500 Respiratory rate 18 /min MD Rylan Andrea Work Phone: [facility] 04-21-2022 09:50-0500 SaO2% (BldA) [Mass fraction] 99 % MD Rylan Andrea Work Phone: [facility] 04-21-2022 09:50-0500 Systolic blood pressure 111 mm[Hg] MD Rylan Andrea Work Phone: [facility] 04-21-2022 08:21-0500 Body height 182.88 cm MD Rylan Andrea Work Phone: [facility] 04-21-2022 08:21-0500 Body weight 70.3 kg MD Rylan Andrea Work Phone: [facility] 04-18-2022 13:59-0500 Diastolic blood pressure 82 mm[Hg] MD Rylan Andrea Work Phone: [facility] 04-18-2022 13:59-0500 Heart rate 99 /min MD Rylan Andrea Work Phone: [facility] 04-18-2022 13:59-0500 Respiratory rate 20 /min MD Rylan Andrea Work Phone: [facility] 04-18-2022 13:59-0500 SaO2% (BldA) [Mass fraction] 99 % MD Rylan Andrea Work Phone: [facility] 04-18-2022 13:59-0500 Systolic blood pressure 117 mm[Hg] MD Rylan Andrea Work Phone: [facility] 04-18-2022 12:41-0500 Body height 185.42 cm MD Rylan Andrea Work Phone: [facility] 04-18-2022 12:41-0500 Body weight 72.12 kg MD Rylan Andrea Work Phone: [facility] 04-14-2022 11:23-0500 Body temperature 98.3 [degF] MD Rylan Andrea Work Phone: [facility] 04-14-2022 11:23-0500 Body weight 70.3 kg MD Rylan Andrea Work Phone: [facility] 04-14-2022 11:23-0500 Diastolic blood pressure 93 mm[Hg] MD Rylan Andrea Work Phone: [facility] 04-14-2022 11:23-0500 Heart rate 95 /min MD Rylan Andrea Work Phone: [facility] 04-14-2022 11:23-0500 Respiratory rate 20 /min MD Rylan Andrea Work Phone: [facility] 04-14-2022 11:23-0500 SaO2% (BldA) [Mass fraction] 100 % MD Rylan Andrea Work Phone: [facility] 04-14-2022 11:23-0500 Systolic blood pressure 130 mm[Hg] MD Rylan Andrea Work Phone: [facility] 04-11-2022 16:03-0500 Body temperature 97.5 [degF] MD Rylan Andrea Work Phone: [facility] 04-11-2022 16:03-0500 Diastolic blood pressure 88 mm[Hg] MD Rylan Andrea Work Phone: [facility] 04-11-2022 16:03-0500 Heart rate 89 /min MD Rylan Andrea Work Phone: [facility] 04-11-2022 16:03-0500 Respiratory rate 15 /min MD Rylan Andrea Work Phone: [facility] 04-11-2022 16:03-0500 SaO2% (BldA) [Mass fraction] 97 % MD Rylan Andera Work Phone: [facility] 04-11-2022 16:03-0500 Systolic blood pressure 125 mm[Hg] MD Rylan Andrea Work Phone: [facility] 04-11-2022 05:07-0500 Body weight 67.7 kg MD Rylan Andrea Work Phone: [facility] 04-10-2022 15:56-0500 Body height 182.88 cm MD Rylan Andrea Work Phone: [facility] 04-10-2022 15:56-0500 Body temperature 98.2 [degF] MD Rylan Andrea Work Phone: [facility] 04-10-2022 15:56-0500 Body weight 66.7 kg MD Rylan Andrea Work Phone: [facility] 04-10-2022 15:56-0500 Diastolic blood pressure 99 mm[Hg] MD Rylan Andrea Work Phone: [facility] 04-10-2022 15:56-0500 Heart rate 99 /min MD Rylan Andrea Work Phone: [facility] 04-10-2022 15:56-0500 Respiratory rate 20 /min MD Rylan Andrea Work Phone: [facility] 04-10-2022 15:56-0500 SaO2% (BldA) [Mass fraction] 98 % MD Rylan Andrea Work Phone: [facility] 04-10-2022 15:56-0500 Systolic blood pressure 148 mm[Hg] MD Rylan Andrea Work Phone: [facility] 02-27-2022 14:35-0400 Body height 182.88 cm MD Rylan Andrea Work Phone: [facility] 02-27-2022 14:35-0400 Body temperature 97.7 [degF] MD Rylan Andrea Work Phone: [facility] 02-27-2022 14:35-0400 Body weight 70.35 kg MD Rylan Andrea Work Phone: [facility] 02-27-2022 14:35-0400 Diastolic blood pressure 90 mm[Hg] MD Rylan Andrea Work Phone: [facility] 02-27-2022 14:35-0400 Heart rate 80 /min MD Rylan Andrea Work Phone: [facility] 02-27-2022 14:35-0400 Respiratory rate 20 /min MD Rylan Andrea Work Phone: [facility] 02-27-2022 14:35-0400 SaO2% (BldA) [Mass fraction] 99 % MD Rylan Andrea Work Phone: [facility] 02-27-2022 14:35-0400 Systolic blood pressure 138 mm[Hg] MD Rylan Andrea Work Phone: [facility] 09-13-2021 16:00-0400 Body height 185.42 cm Anita Lincoln Other [employer] Other 09-13-2021 16:00-0400 Body mass index (BMI) [Ratio] 20.45 kg/m2 Anita Lincoln Other [employer] Other 09-13-2021 16:00-0400 Body temperature 99.4 [degF] Anita Lincoln Other [employer] Other 09-13-2021 16:00-0400 Body weight 70.31 kg Anita Lincoln Other [employer] Other 09-13-2021 16:00-0400 Diastolic blood pressure 82 mm[Hg] Anita Lincoln Other [employer] Other 09-13-2021 16:00-0400 Respiratory rate 18 /min Anita Lincoln Other [employer] Other 09-13-2021 16:00-0400 SaO2% (BldA) [Mass fraction] 97 % Anita Lincoln Other [employer] Other 09-13-2021 16:00-0400 Systolic blood pressure 160 mm[Hg] Anita Lincoln Other [employer] Other 09-08-2021 10:09-0400 Diastolic blood pressure 78 mm[Hg] Rylan Krystina [employer] Phone: [facility] DO Work Phone: 09-08-2021 10:09-0400 Systolic blood pressure 118 mm[Hg] Rylan A [employer] Phone: [facility] DO Work Phone: 09-08-2021 10:05-0400 Body height 182.88 cm Rylan Krystina [employer] Phone: [facility] DO Work Phone: 09-08-2021 10:05-0400 Body mass index (BMI) [Ratio] 21.16 kg/m2 Rylan A [employer] Work Phone: [facility] DO Work Phone: 09-08-2021 10:05-0400 Body surface area Derived from formula 1.92 m2 Rylan Flaherty [employer] Phone: [facility] DO Work Phone: 09-08-2021 10:05-0400 Body weight 70.76 kg Rylan Flaherty [employer] Work Phone: [facility] DO Work Phone: 09-08-2021 10:05-0400 Diastolic blood pressure 76 mm[Hg] Rylan A Andrea Work Phone: [facility] DO Work Phone: 09-08-2021 10:05-0400 Heart rate 96 /min Rylan Flaherty Andrea Work Phone: [facility] DO Work Phone: 09-08-2021 10:05-0400 Systolic blood pressure 120 mm[Hg] Rylan Flaherty Andrea Work Phone: [facility] DO Work Phone: 09-08-2021 10:05-0400 20 1 Rylan Flaherty Andrea Work Phone: [facility] DO Work Phone: Comment on above: PHQ-9 TS Encounters Encounter Date Encounter Type Care Provider Facility Start: 10-31-2023 End: 10-31-2023 ambulatory FLORINDA MONK Not Available Start: 10-17-2023 ambulatory Rylan Andrea Facility:[facility] Start: 10-04-2023 End: 10-04-2023 ambulatory MARILU WARCHOL Not Available Start: 09-19-2023 End: 09-19-2023 ambulatory MARILU WARCHOL Not Available Start: 09-11-2023 ambulatory RYLAN ANDREA [facility] Start: 09-11-2023 End: 09-11-2023 ambulatory MARILU WARCHOL Not Available Start: 08-16-2023 End: 08-16-2023 ambulatory RYLAN ANDREA Not Available Start: 06-29-2023 End: 06-29-2023 ambulatory MD Rylan Andrea Work Phone: [facility] Work Phone: Start: 06-29-2023 End: 06-29-2023 Patient encounter procedure MD Rylan Andrea Work Phone: [facility] Work Phone: Start: 06-29-2023 Registered Recurring MD Rylan [facility] Work [facility]: Start: 06-25-2023 External Result Encounter Estela Varma DO Work Phone: [facility] External Department Unsolicited Start: 06-25-2023 External Result Encounter Estela Varma DO Work Phone: [facility] External Department Unsolicited Start: 04-12-2023 End: 04-12-2023 ambulatory MARILU BONNER Not Available Start: 12-25-2022 End: 12-25-2022 ambulatory MD Rylan Andrea Work Phone: [facility] Work Phone: Start: 12-25-2022 End: 12-25-2022 Registered Recurring MD Rylan Andrea [facility] Work [facility]: Start: 11-01-2022 End: 11-01-2022 ambulatory MD Rylan Andrea Work Phone: [facility] Work Phone: Start: 11-01-2022 End: 11-01-2022 Registered Recurring MD Rylan Andrea [facility] Work [facility]: Start: 10-26-2022 End: 10-26-2022 Emergency department patient visit MD Rylan Andrea Work Phone: [facility]Emergency [facility] Work Phone: Start: 10-26-2022 Registered Recurring MD Rylan Andrea [facility] Work [facility]: Start: 10-18-2022 End: 10-18-2022 Patient encounter procedure MD Rylan Andrea Work Phone: [facility] Ctr-XRay Main [place] Work Phone: Start: 10-18-2022 End: 10-18-2022 ambulatory MD Rylan Andrea Work Phone: [facility] Work Phone: Start: 10-10-2022 End: 10-10-[address] RYLAN ANDREA Facility:[facility] Start: 10-03-2022 End: 10-03-[address] RYLAN ANDREA Facility:[facility] Start: 09-19-2022 End: 09-19-2022 ambulatory MD Rylan Andrea Work Phone: [facility] Work Phone: Start: 09-19-2022 End: 09-19-2022 Registered Recurring MD Rylan Andrea Work Phone: [facility]Cancer [facility] Work Phone: Start: 09-19-2022 Registered Recurring MD Rylan Andrea Work Phone: [facility] Work Phone: Start: 09-11-2022 End: 09-11-[address] RYLAN ANDREA Facility:[facility] Start: 09-08-2022 End: 09-08-[address] RYLAN NADREA Facility:[facility] Start: 09-04-2022 End: 09-04-[address] RYLAN ANDREA Facility:[facility] Start: 09-01-2022 End: 09-02-[address] RYLAN ANDREA Facility:[facility] Start: 08-27-2022 End: 08-27-[address] MELANI IBRAHIM Facility:[facility] Start: 06-22-2022 End: 06-22-2022 ambulatory MD Rylan Andrea Work Phone: [facility] Work Phone: Start: 06-22-2022 End: 06-22-2022 Registered Recurring MD Rylan Andrea Work Phone: [facility] Work Phone: Start: 06-18-2022 End: 06-18-[address] JESSE RAMOS Facility:[facility] Start: 06-16-2022 End: 06-17-2022 Admission to same day surgery center MD Rylan Andrea Work Phone: [facility] C[facility]-Surgery [facility] [place] Start: 06-15-2022 Office outpatient vi sit 25 minutes Kamal Chaban [facility] Start: 06-15-2022 End: 06-15-2022 ambulatory MD Rylan Andrea Work Phone: [facility] Ctr Work Phone: Start: 06-15-2022 End: 06-15-2022 Patient encounter procedure MD Rylan Andrea Work Phone: [facility] Work Phone: Start: 06-01-2022 End: 06-01-2022 ambulatory MD Rylan Andrea Work Phone: [facility] Ctr Work Phone: Start: 06-01-2022 End: 06-01-2022 Patient encounter procedure MD Rylan Andrea Work Phone: [facility] Ctr-CT Scan Main [place] Work Phone: Start: 05-31-2022 End: 05-31-2022 ambulatory Rachid Chase Other [employer] Other Start: 05-31-2022 Office outpatient ne w 45 minutes Kamal Chaban [facility] Start: 04-21-2022 End: 04-21-2022 Admission to same day surgery center MD Rylan Andrea Work Phone: [facility] Ctr-Ultrasound Main [place] Start: 04-21-2022 End: 04-21-2022 ambulatory MD Rylan Andrea Work Phone: [facility] Ctr Work Phone: Start: 04-18-2022 End: 04-18-2022 Admission to same day surgery center MD Rylan Andrea Work Phone: [facility] Ctr-Ultrasound Main [place] Start: 04-18-2022 End: 04-18-2022 ambulatory MD Rylan Andrea Work Phone: [facility] Ctr Work Phone: Start: 04-14-2022 End: 04-14-2022 ambulatory MD Rylan Andrea Work Phone: [facility] Ctr Work Phone: Start: 04-14-2022 End: 04-14-2022 Registered Recurring MD Rylan Andrea Work Phone: [facility] Start: 04-14-2022 Registered Recurring MD Rylan Andrea Work Phone: [facility] Start: 04-10-2022 End: 04-11-2022 Evaluation and management of inpatient MD Rylan Andrea Work Phone: [facility] Ctr-[facility] Start: 04-10-2022 observation encounter MD Rylan Andrea Work Phone: [facility] Ctr Work Phone: Start: 04-10-2022 Registered Recurring MD Rylan Andrea Work Phone: [facility]tr-Cancer Center Start: 02-27-2022 End: 02-27-2022 ambulatory MD Rylan Andrea Work Phone: [facility] Ctr Work Phone: Start: 02-27-2022 End: 02-27-2022 Registered Recurring MD Rylan Andrea Work Phone: [facility] Start: 11-29-2021 ambulatory Rylan Ortiz ity: Start: 11-23-2021 End: 11-24-[address] MARCE PAGAN Facility:[facility] Start: 09-13-2021 Chart Update Rylan Andrea Work Phone: [facility] DO Work Phone: Start: 09-13-2021 End: 09-13-2021 ambulatory Anita Lincoln Other [facility] [employer] Other Start: 09-13-2021 Office outpatient vi sit 25 minutes Anita Lincoln [facility] Start: 09-09-2021 ambulatory Rylan Andrea Facil [id number] Start: 09-09-2021 [facility], Provider: Lukas Oliveira, Status: Pen, Time: 1:00 PM Rylan Andrea Work Phone: [facility] DO Work Phone: Start: 09-08-2021 Office consultation new/estab patient 80 min Rylan Andrea Work Phone: [facility] DO Work Phone: Start: 09-08-2021 ambulatory Estela Varma Facility: Start: 08-06-2020 End: 08-07-2020 Patient encounter procedure [facility] Start: 04-24-2018 End: 05-14-2018 Patient encounter procedure CUBA Krystina [facility] Start: 10-24-2017 End: 10-25-2017 Ambulatory [facility] Facility:[facility] Procedures Date Procedure Procedure Detail Performing Clinician Start: 06-25-2023 Carcinoembryonic antigen cea Estela Varma DO Work Phone: Comment on above: Serial tumor marker results determined by assays using different manufacturers or methods may not be comparable. [facility] web project manager and method: VALENTINE UNICEL DXI, 2 SITE IMMUNOENZYMATIC SANDWICH ASSAY. Start: 06-25-2023 Positron emission to mography with computed tomography MD Rylan Andrea Work Phone: Start: 06-25-2023 Carcinoembryonic antigen cea Estela Varma DO Work Phone: Comment on above: Result Comment: Georges al tumor marker results determined by assays using different manufacturers or methods may not be comparable. [facility] web project manager and method: VALENTINE UNICEL DXI, 2 SITE IMMUNOENZYMATIC ?SANDWICH? ASSAY. PERFORMED BY: [address] [place] [address] PATHOLOGIST SPOUT POSITIONER CATY DELCID M.D. Performed By: #### T 4F, CMP, [id number], YUSUF, CEA, FE and TIBC, LIPASE, MARILU, CBC, TSH3 ####[address]#### METH ####[facility] , Start: 06-25-2023 Complete blood count with white cell differential, automated [employer] DO Work Phone: Start: 06-25-2023 GLUCOSE POCT GLUCOMETERS [employer] DO Work Phone: Start: 03-30-2023 Carcinoembryonic antigen cea Humberto Molina Comment on above: Result Comment: PERF ORMED BY: [address] [place] [address] PATHOLOGIST SPOUT POSITIONER CATY DELCID M.D. Performed By: #### F E and TIBC, T4F, CMP, B12, FOL, CBC, CEA, MARILU, LIPASE ####[address]#### METH ####[facility] , Start: 12-22-2022 Positron emission to mography with computed tomography MD Rylan Andrea Work Phone: Start: 10-26-2022 Plain chest X-ray MD Katarina Andrea Work Phone: Start: 10-26-2022 Carcinoembryonic antigen cea Humberto Jesse Comment on above: Result Comment: PERF ORMED BY: [address] [place] [address] PATHOLOGIST SPOUT POSITIONER CATY DELCID M.D. Performed By: #### C BC, ESR, CMP, FE and TIBC, YUSUF, [id number], CEA ####[facility] [id number] [id number] [facility]#### EPO ####[facility] , Start: 10-18-2022 Plain chest X-ray MD Katarina Andrea Work Phone: Start: 09-15-2022 Positron emission to mography with computed tomography MD Rylan Andrea Work Phone: Start: 06-17-2022 Plain chest X-ray MD Katarina Andrea Work Phone: Start: 06-16-2022 End: 06-16-2022 Plain chest X-ray MD Rylan Andrea Work Phone: Start: 06-16-2022 Insertion of pleural tube drain MD Rylan Andrea Work Phone: Start: 06-16-2022 End: 06-16-2022 Plain chest X-ray MD Rylan Andrea Work Phone: Start: 06-01-2022 CT of thorax with contrast MD Rylan Andrea Work Phone: Start: 04-21-2022 Ultrasonic guidance for thoracentesis MD Rylan Andrea Work Phone: Start: 04-18-2022 Ultrasonic guidance for thoracentesis MD Rylan Andrea Work Phone: Start: 04-11-2022 Plain chest X-ray MD Katarina Andrea Work Phone: Start: 04-11-2022 Aerobic microbial culture MD Rylan Andrea Work Phone: Start: 04-11-2022 Anaerobic microbial culture MD Rylan Andrea Work Phone: Start: 04-11-2022 Investigation of tra nsfusion reaction MD Rylan Andrea Work Phone: Start: 04-10-2022 Blood culture for ba cteria, including anaerobic screen MD Rylan Andrea Work Phone: Start: 04-10-2022 Plain chest X-ray MD Katarina Andrea Work Phone: Start: 04-10-2022 Computed tomography of abdomen and pelvis with contrast MD Rylan Andrea Work Phone: Start: 04-10-2022 CT of thorax with contrast MD Rylan Andrea Work Phone: Start: 01-03-2022 Computed tomography of abdomen and pelvis with contrast MD Rylan Andrea Work Phone: Start: 01-03-2022 CT of thorax with contrast MD Rylan Andrea Work Phone: Start: 09-02-2021 Positron emission to mography with computed tomography MD Rylan Andrea Work Phone: Start: 08-18-2021 Computed tomography of abdomen and pelvis with contrast MD Rylan Andrea Work Phone: Start: 08-18-2021 CT of thorax with contrast MD Rylan Andrea Work Phone: Start: 08-18-2021 CT of head with contrast MD Rylan Andrea Work Phone: Start: 04-01-2021 Computed tomography of abdomen and pelvis with contrast MD Rylan Andrea Work Phone: Start: 04-01-2021 CT of head with contrast MD Rylan Andrea Work Phone: Start: 04-01-2021 CT of thorax with contrast MD Rylan Andrea Work Phone: Start: 01-31-2021 Plain chest X-ray MD Katarina Andrea Work Phone: Start: 12-03-2020 CT of head with contrast MD Rylan Andrea Work Phone: Start: 12-03-2020 CT of thorax with contrast MD Rylan Andrea Work Phone: Start: 09-08-2020 CT of thorax with contrast MD Rylan Andrea Work Phone: Start: 07-20-2020 MRI of head MD Rylan sebastian Work Phone: Start: 03-23-2020 Computed tomography of abdomen and pelvis with contrast MD Rylan Andrea Work Phone: Start: 03-23-2020 CT of thorax with contrast MD Rylan Andrea Work Phone: Start: 11-24-2019 CT of head with contrast MD Rylan Andrea Work Phone: Start: 10-24-2017 Colonoscopy Estela Floyd brendon DO Work Phone: Aerobic microbial culture MD Rylan Andrea Work Phone: Anaerobic microbial culture MD Rylan Andrea Work Phone: Blood culture for ba cteria, including anaerobic screen MD Rylan Andrea Work Phone: Insertion of implant able venous access port Rylan Andrea Work Phone: Investigation of tra nsfusion reaction MD Rylan Andrea Work Phone: Surgical repair of u pper extremity Rylan Andrea Work Phone: Total colonoscopy Rylan downser Work Phone: Comment on above: 2016; Vasectomy Rylan Andrea Work Phone: Plan of Treatment Date Care Activity Detail Author Start: 10-25-2027 Screening for malign ant neoplasm of colon [facility] Start: 11-11-2023 Influenza vaccination Influenza Vacc ine (#1) [facility] Comment on above: Postponed from 01/12 (Patient Refused) Start: 07-10-2023 End: 07-10-2023 Patient encounter procedure 07/10/2023 1:40 PM EST Office Visit [facility] [address] [place] [address] Rylan Andrea MD [address] [place] [address] [facility] Start: 06-25-2023 [facility] Start: 12-11-2022 [facility] Start: 10-26-2022 Erythropoietin (EPO) [Units/volume] in Serum or Plasma [facility] Start: 06-17-2022 [facility] Start: 06-16-2022 Referral to clinical cap parts cutter [facility] Start: 04-21-2022 [facility] Start: 04-21-2022 Ultrasonic guidance for thoracentesis [facility] Start: 04-18-2022 [facility] Start: 04-18-2022 Ultrasonic guidance for thoracentesis [facility] Start: 04-14-2022 [facility] Start: 04-11-2022 [facility] Start: 04-11-2022 Troponin I.cardiac [Mass/volume] in Serum or Plasma by High sensitivity method [facility] Start: 04-10-2022 Referral to oncologist [facility] Start: 04-10-2022 Hospital admission [facility] Start: 04-10-2022 [facility] Start: 02-27-2022 [facility] Start: 11-29-2021 FUV, Provider: Lukas Oliveira, Status: Pen, Time: 11:10 AM [facility], Provider: Lukas Oliveira, Status: Pen, Time: 11:10 AM [place] [address] DO Work Phone: Start: 09-05-2021 [facility] Start: 08-22-2021 [facility] Start: 04-05-2021 [facility] Start: 02-01-2021 [facility] Start: 08-16-2020 [facility] Start: 08-05-2020 [facility] Start: 07-26-2020 [facility] Start: 07-06-2020 [facility] Start: 06-29-2020 [facility] Start: 06-14-2020 [facility] Start: 05-24-2020 [facility] Start: 05-03-2020 [facility] Start: 04-12-2020 [facility] Start: 04-12-2020 [facility] Start: 03-08-2020 [facility] Start: 02-24-2020 [facility] Start: 02-18-2020 [facility] Start: 02-16-2020 End: 02-16-2020 [facility] Start: 02-16-2020 [facility] Start: 02-10-2020 [facility] Start: 02-04-2020 End: 02-04-2020 [facility] Start: 01-28-2020 [facility] Start: 01-26-2020 [facility] Start: 01-26-2020 [facility] Start: 01-21-2020 [facility] Start: 01-21-2020 End: 01-21-2020 [facility] Start: 01-06-2020 [facility] Start: 01-05-2020 [facility] Start: 12-15-2019 [facility] Start: 11-24-2019 [facility] Start: 1965 Screening for malign ant neoplasm of colon [facility] Amylase [Enzymatic activity/volume] in Serum or Plasma Amylase Lab Routine 06/25/2023 7:57 AM EST [facility] Bacteria identified in Blood by Culture [facility] Blood culture for bacteria, including anaerobic screen Blood Culture [facility] Carcinoembryonic Ag [Mass/volume] in Serum or Plasma [facility] Comprehensive metabo lic 1999 panel - Serum or Plasma [facility] Comprehensive metabo lic 1999 panel - Serum or Plasma [facility] Comprehensive metabo lic 1999 panel - Serum or Plasma [facility] Comprehensive metabo lic 1999 panel - Serum or Plasma [facility] Comprehensive metabo lic 1999 panel - Serum or Plasma Comprehensive metabolic panel Lab Routine 06/25/2023 7:57 AM EST [facility] Work Phone: Comprehensive metabo lic 1999 panel - Serum or Plasma [facility] CT Abdomen and Pelvi s W contrast IV [facility] CT Abdomen and Pelvi s W contrast IV [facility] CT Abdomen and Pelvi s W contrast IV [facility] Chest W contrast IV [facility] Chest W contrast IV [facility] Chest W contrast IV [facility] Erythrocyte sediment ation rate by Photometric method [facility] Erythropoietin (EPO) [Units/volume] in Serum or Plasma [facility] Iron and Iron bindin g capacity panel - Serum or Plasma Iron and TIBC Lab Routine 06/25/2023 7:57 AM EST [facility] Lipase [Enzymatic activity/volume] in Serum or Plasma Lipase Lab Routine 06/25/2023 7:57 AM EST [facility] Methylmalonate [Moles/volume] in Serum or Plasma [facility] Patient Education [facility] Work Phone: Patient referral [facility] Work Phone: Thyrotropin [Units/v olume] in Serum or Plasma [facility] Ultrasonic guidance for thoracentesis [facility] Ultrasonic guidance for thoracentesis [facility] Immunizations Immunization Date Immunization Notes Care Provider Fa mehul 09-01-2020 Pfizer-BioNTech COVID-19 Vacc 30 MCG/0.3ML Intramuscular Suspension Rylan A Andrea Work Phone: [facility] 07-30-2020 Pfizer-BioNTech COVID-19 Vacc 30 MCG/0.3ML Intramuscular Suspension Rylan A Andrea Work Phone: [facility] 03-24-2020 influenza, injectabl e, quadrivalent, preservative free Rylan A Andrea Work Phone: [facility] 03-24-2020 influenza virus vaccine, unspecified formulation Estela Varma DO Work Phone: [facility] 03-15-2020 influenza, injectabl e, quadrivalent, preservative free Rylan A Andrea Work Phone: [facility] Payers Date Payer Category Payer Private Health Insurance [id number] 2022 Self-pay [id number] 2021 Medicaid [id number] 2021 Medicare MEDICARE MEDICAR E RAILROAD [id number] 2021-Present [employer] RAILRO[employer] MEDICARE [address] [address] [place] [address] Medicare [id number] 2017 Private Health Insurance 1965 Unknown [id number] 2.16.840.1.216011.3.579.2. 173 1965 Unknown [id number] 2.16.840.1.552260.3.579.2. 356 1965 Unknown [id number] 2.16.840.1.597775.3.579.2. 356 1965 Unknown [id number] 2.16.840.1.017726.3.579.2. 356 1965 Unknown [id number] 2.16.840.1.128186.3.579.2. 593 1965 Unknown [id number] 2.16.840.1.232896.3.579.2. 593 1965 Unknown [id number] 2.16.840.1.464265.3.579.2. 593 1965 Unknown [id number] 2.16.840.1.669542.3.579.2. 593 1965 Unknown [id number] 2.16.840.1.967538.3.579.2. 593 1965 Unknown [id number] 2.16.840.1.658086.3.579.2. 593 1965 Unknown [id number] 2.16.840.1.362468.3.579.2. 593 1965 Unknown [id number] 2.16.840.1.128649.3.579.2. 593 1965 Unknown [id number] 2.16.840.1.972840.3.579.2. 593 1965 Unknown [id number] 2.16.840.1.102594.3.579.2. 1286 1965 Unknown [id number] 2.16.840.1.097140.3.579.2. 1286 1965 Unknown [id number] 2.16.840.1.446056.3.579.2. 128 1965 Unknown [id number] 2.16840.1.819415.3.579.2. 128 1965 Unknown [id number] 2.16840.1.821802.3.579.2. 1286 1965 Unknown [id number] 2.840.1.971612.3.579.2. 1259 1965 Unknown [id number] 2.840.1.320928.3.579.2. 9 1965 Unknown [id number] 2.840.1.369672.3.579.2. 1258 1965 Unknown [id number] 2.16840.1.021347.3.579.2. 9 1965 Unknown [id number] 2.840.1.182621.3.579.2. 9 1965 Unknown [id number] 2.840.1.782944.3.579.2. 1259 1959 Medicaid [id number] 1959 Medicare [id number] 1959 Private Health Insurance [id number] Private Health Insurance [facility] [id number] Unknown Unknown [id number] 2.16840.1.437442.19 Unknown [id number] 2.16840.1.933380.3.579.2. 531 Unknown [id number] 2.16840.1.608209.3.579.2. 531 Unknown [id number] 2.16840.1.544260.3.579.2. 531 Social History Date Type Detail Facility Start: 04-12-2023 End: 04-13-2023 Occasional alcohol use Occasional alcohol use [facility] Comment on above: beer; medical marijuana ed ibles; quit 2020 1ppd; Start: 04-11-2023 End: 04-12-2023 Sex Assigned At [facility] Start: 02-27-2022 End: 09-04-2022 Tobacco smoking status ORIS Ex-smoker (finding) [facility] Start: 1965 Sex Assigned At Male F [facility] Start: 10-26-2022 End: 12-25-2022 Tobacco smoking status ORIS Never smoked tobacco (finding) [facility] Start: 04-12-2023 Tobacco smoking status [facility] Occasional tobacco smoker [facility] History of tobacco use Cigar Smoker [facility] Start: 04-12-2023 Tobacco use and exposure Smokeless tobacco non-user [facility] Start: 04-13-2023 Alcohol intake Current drinke r of alcohol (finding) [facility] How often to you hav e a drink containing alcohol? 4 or more times a week [facility] How many standard drinks containing alcohol do you have on a typical day? 10 or more [facility] How often do you hav e 6 or more drinks on 1 occasion? Daily or almost daily [facility] Start: 04-12-2023 Alcohol Comment He drinks a 6 pack of beer and half bottle of liquor daily. He is considering AA. [facility] Start: 1965 Sex Assigned At Not on file [facility] Start: 07-26-2022 Gender identity Identifies as male gender (finding) [facility] NEGATED: Highlighted rowStart: NINF History of tobacco use Passive smoker [facility] Medical Equipment Procedure Code Equipment Code Equipment Origin al Text Equipment Identifier Dates Repair, hernia, inguinal, with mesh Abdominal hernia surgical mesh, synthetic polymer, non-bioabsorbable [id number] FDA Start: 05-10-2020 Insertion of central venous catheter (CVC) with subcutaneous port for chemotherapy Vascular port/catheter [id number] FDA Start: 11-26-2019 Goals Date Patient Goal Desired Activity /State Functional Status Date Assessment Result Facility 06-17-2022 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 [facility] Work Phone: 04-11-2022 Functional status Patient at Baseline [facility] Work Phone: 04-10-2022 Functional status Patient at Baseline [facility] Work Phone: 09-08-2021 PHQ-9 [id number] Severe (20-27) [facility] 250 DO Work Phone: Mental Status Date Assessment Result Facility 06-17-2022 Cognitive function Cognitive Sta tus Patient at Baseline [facility] Work Phone: 04-11-2022 Cognitive function Cognitive Sta tus Patient at Baseline [facility] Work Phone: 04-10-2022 Cognitive function Cognitive Sta tus Patient at Baseline [facility] Work Phone: Clinical Notes 11-18-2019 to 11-07-2022 Note Date & Type Note Facility 11-07-2022 Progress note Note Date/Time November 01, 2022 11:[address] [place] [address] [facility] [place] [id number] Hem/Onc Follow Up Note - OP Signed with Addenda Patient: Kirill Echols MR#: [id number] : 1965 Acct:[id number] Age/Sex: 57 / M Type: REG RCR Copies to: MD Rylan Vega MD Timothy J Adamowicz, II, DO~ ADDENDUM1 Will initiate monthly B12 injections for B12 deficiency, as well as folic acid 1mg po daily for folate deficiency. Addendum Dictated By: ERINN Shane Addendum Signed By: 11/07/221149 Addendum Cosigned By: DD/ TD/TT: 11/07/22 Date of Service: 11/01/2022 Time of Service: 11:05 - Assessment & Plan (1) Small cell lung cancer Plan: 1.) Limited stage small cell lung cancer, status post concurrent chemoradiation with carboplatin/etoposide, CR after 6 cycles of carboplatin, etoposide and atezolizumab. He did not complete a year of maintenance atezolizumab, stopped for patient preference LAST DOSE JUN 2020. Was tolerating well with some diarrhea PET/CT in August 2021 shows no evidence of active malignancy. Follow-up imagingin March 2022 with no evidence of disease but enlarging right-sided pleural effusion.. He has had longstanding chronic L sided chest discomfort. He has had a work-up as an outpatient recently from his PCP. He has left-sided chest pain but his pain is very much reproducible. Also he has enlarging (contralateral) right-sided pleural effusion. Dr Irene did diagnostic pleura aspiration was negative cytology mar 2022. fluid was EXUDATIVE suggestive of malignancy. ct c/a/p: 04/10/22 no obvious evidence cancer recurrence. s/p R pleurx catheter placement on 06/16/2022. Home health is draining this - pleural fluid is negative for malignancy October 2022 he would like the catheter removed as HH is not getting much fluid outat all for the last few weeks HAS NOT BEEN TREATED SYSTEMICALLY SinCE JUN 2020. pet/ct in september 2022, is with no evidence of cancer. Plan next imaging in December 2022 Pleural fluid with thoracentesis has been negative for malignancy; however, as noted above - we will request repeat cytology of pleural fluid x 3 consecutive samples it seems these have been sent as cultures, not as cytology, we will try to rectify this in the future. Cytology continues to be negative (2) Chest pain (3) Shortness of breath (4) Chronic hyponatremia (5) Weight loss Follow Up Instructions: PET in December cbc, cmp, cea with scan follow-up after PET with Dr. Sandhu - History of Present Illness Chief Complaint: Patient is here for a one month follow up, had labs 10/26/22 for review. States there is nothing really new going on. HPI: 54-year-old -[place]ong[place] gentleman history of smoking 40 pack years and moderate alcohol use had complaints of chest pain for last year and a half and has been seen by his physicians in the past. Recently, his chest pain got much worse and a CT scan of his chest showed paratracheal and hilar lymphadenopathy. He also had a PET CT scan which confirmed a hypermetabolic spiculated mass in the right apical region as well as right hilar and paratracheal lymphadenopathy. There was also involvement of the supra and subclavicular region on the right suggestive of metastatic lymphadenopathy. 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 He received cycle 1 carboplatin and etoposide for small cell neuroendocrine lungcancer on November 24, 2019 He was started on chemotherapy carbo etoposide and atezolizumab and finished his6 cycle of chemotherapy March 08, 2020. About 50% dose reduction under direction of Dr. Ash. Continued atezolizumab through Jun 2020. In Mar 2021. CT brain, chest abdomen and pelvis are negative for recurrence. CT imaging from 08/18/21 notes COMPARISON: 04/01/2021. Increasing subcarinal and predominantly right hilar soft tissue prominence suggesting disease recurrence. There is a new small right-sided pleural effusion. Emphysematous changes are noted with linear scarring or atelectasis, as above. No acute intra-abdominal pathology or evidence of new intra-abdominal metastatic disease. My own personal review of these images, not overwhelming for recurrence. He lives alone in [place]. His children live in [place]. His left him 8 months ago and he is very upset. as of august, very short of breath and fatigue, chest pressure. sleeps sitting up, very depresse. pet/ct on 09/02 notes FINDINGS: No hypermetabolic activity suspicious for malignancy is identified in the neck, chest, abdomen, or pelvis. Specifically, no abnormal uptake is seen in the subcarinal or right hilar regions. Laryngeal activity is presumably physiologic. There is physiologic activity in the heart and urinary tract. Otherwise, there is an Cwmoee-k-Bahr on the left. The lungs demonstrate emphysematous changes. There is mild dependent subpleural atelectasis on the right. There are very small pericardial and right pleural effusions. There are calcifications in the head of the pancreas consistent with chronic pancreatitis. The wall of the urinary bladder appears mildly thickened, however, this finding is likely related to underdistention. IMPRESSION: No hypermetabolic activity suspicious for malignancy. ct c/a/p from 01/03/22 1. Increasing right-sided pleural effusion since the prior study. Metastatic effusion cannot be excluded. 2. Stable 9 mm indeterminate lesion involving the left lobe of the liver. No new liver lesions. Attention on follow-up is recommended. around then his short of breath and chest pressure improved quite significantly. ct c/a/p with contrast 04/10/22 ENLARGING RIGHT PLEURAL EFFUSION. BILATERAL ATELECTASIS AND SCARRING. ADVANCED OBSTRUCTIVE LUNG DISEASE. NO DEVELOPING ADENOPATHY. STABLE SMALL LEFT HEPATIC HYPODENSITY. NO ACUTE FINDINGS. In april started with R sided effusion, had hospitalization. He has thoracentesis aspirated from the R chest. cytology negative. 06/22/2022: Kirill is here for interval follow up; surveillance with history of limited stage small cell lung cancer - has been off all active cancer therapy x 2 years; since June 2020 - has had ongoing issues with shortness of breath, dyspnea on exertion and chestwall pain He recently underwent placement of right lung pleur-X catheter for recurrent pleural effusion with Dr. Duval on 04/15/2023 - he notes significant changes and improvement in his shortness of breath since placement; he notes some skin discomfort with position changes - no active draining; site is clean, dry, intact. Home health is emptying 1 timeper week. Denies new areas of pain, weight is stable; he has actually gained 8-10 pounds since his last visit here. Last CT scan of the chest, abdomen/pelvis on 04/10/2022 showed pleural effusion with no obvious recurrence or interval mass. 09/04/2022: Kirill is here for add on appointment after ER visit at [facility] on August 29, 2022 He went to the ER for new onset, left sided rib pain; felt like he had a cinderblock on his left chest wall Cardiac work up was done: nothing acute He had CT chest done that showed mild right pleural effusion; no enlarging lymphnodes or osseous lesions - there was mention of a right localized crescenteric pleural-based airspace consolidation suggestive of rounded atelectasis in the posterior right lower lobe and right middle lobe. Cannot exclude infection versus neoplasm. Clinically, he is feeling more tired and has lost weight When I saw him in June 2022; he had actually gained 8-10 pounds; but has since lost 10 pounds over the last 6-8 weeks Reports nothing tastes good He is more short of breath with exertion; but denies fever/chills, night sweats or new bony pain elsewhere He has productive cough at times; but not consistent; no hemoptysis 09/19/22 pet/ct from 09/15/22 notes Neck: No abnormal activityChest:No abnormal activity isseen within the mediastinum or hilar regions. No FDG avid lung nodule or mass. Right-sided Pleurx catheter is noted with residual pleural thickening without focal abnormal FDG activity. Abdomen/pelvis: No abnormal activity. Soft tissue/bones: No abnormal activity. CT findings: Emphysematous changes. No pneumothorax. Left-sided port is in place. No free air or free fluid. IMPRESSION: No PET/CT evidence of malignancy is seen. he continues to get twice weekly drainage of his pleuryx. the last two times heonly had about 100cc out. He is doing well overall. He does note getting winded a bit on exertion. he feels he is deconditioned. 11/01/22 He is doing ok overall He has not had nearly any drainage/fluid from his pleurx cath and wants this removed. Per Dr. Duval's office, they will not see Mr. Echols any longer. Dr. Andrea's office stated to f/u with us for the removal. denies shortness of breath, chest pain, GI complaints or other new concerns labs stable. His B12 and folate are low, will initiate treatment. CEA down to 8.0 - Physical Exam ECOG PS: 0 General : patient is thin, alert and oriented to person place and time, no acutedistress. Neck: no JVD or thyromegaly. Lymph: no cervical, supraclavicular, axillary adenopathy. Heart: regular rate and rhythm no murmurs rubs or gallops. Chest wall: right lung pleurx catheter with dressing intact; clean, dry. Abdomen: soft nontender nondistended, no hepatosplenomegaly. Lungs: cta bl, no wheezes, rales, rhonchi Extremities: no clubbing cyanosis. . - Time with Patient Coordination of Care & Counseling Time: Greater than 50% of time spent with patient was for coordination of care (as documented) and jbzf-lk-bkmy counseling of patient and/or family. 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 On home oxygen therapy 4 Pancreatitis Pneumothorax Port-A-Cath in place left chest wall Recurrent right pleural effusion Small cell lung cancer s/p chemo & radiation. undergoing Imunnotherapy Suicidal ideation TOS (thoracic outlet syndrome) Urinary retention with incomplete bladder emptying - Surgical History Surgical History: Surgical History (Last Reviewed 10/26/22 @ 11:57 by Hannah Gamboa, RN) H/O vasectomy H/O wrist surgery Right side, 2005 Hx of hernia repair - Family History Family History: Family History (Last Reviewed 06/16/22 @ 19:33 by Jackie Fraga, ANP-) Mother Colon cancer Diabetes mellitus, type 2 Father Prostate cancer Cardiovascular disease Hypertension Brother Diabetes mellitus, type 2 Hypertension Sister Hypertension - Social History Smoking Status: Never smoker Tobacco Type: cigarettes Substance Use Type: Alcohol, Marijuana Substance Abuse Comment: socially Additional Data - Additional Objective Data Height/Weight: Height 6 ft Weight 68.266 kg BSA for Today's Weight 1.92 Vital Signs: 11/01/22 10:41 Temperature 97.6 F Pulse Rate [Right Brachial] 103 H Respiratory Rate 18 Blood Pressure [Right Arm] 121/82 02 Sat by Pulse Oximetry 99 Oxygen Delivery Method Room Air Distress Screening: RN Distress Screening Start: 11/18/19 12:21 Freq: Status: Complete Protocol: Document 11/18/19 12:56 AA (Rec: 11/18/19 12:58 AA -[id number]) Distress Screening Distress Score: 10 Worst distress/worry Emotional Concerns Feeling uncertain about the future Distress Screening Total 10 Distress score of 4 or more discussed Yes with patient? RN Distress Screening Start: 11/24/19 08:55 Freq: Q30D Status: Active Protocol: Document 03/01/22 15:44 KB (Rec: 03/01/22 15:45 KB [id number]) Distress Screening Distress score of 4 or more discussed Yes with patient? Distress screening follow up: Has has recent family deaths lately. Spoke with patient, denies needs/assistance. - Lab Results Diagram of Most Recent CBC and CMP 10/26/22 11:38 10/26/22 11:38 Labs - Last 7 Days 10/26/22 11:38: Erythropoietin 15.7 10/26/22 11:38: Carcinoembryonic Ag 8.0 H 10/26/22 11:38: PHA Creatinine Clear 121.12, Sodium 129 L, Potassium 4.1, Chloride 98, Carbon Dioxide 23.5, Anion Gap 11.6, BUN 8, Creatinine 0.67 L, Est GFR (CKD-EPI) > 60.0, Glucose 66 L, Calcium 8.3 L, Iron 103, TIBC 269, Iron Saturation 38.3, Transferrin 192 L, Ferritin 225.5, Total Bilirubin 0.6, AST 16,ALT 12, Alkaline Phosphatase 140 H, Total Protein 6.7, Albumin 3.9, Globulin 2.8, Albumin/Globulin Ratio 1.4, Vitamin B12 252, Folate 4.9 L 10/26/22 11:38: Corrected WBC 5.8, Uncorrected WBC Count 5.8, RBC 4.17, Hgb 13.6, Hct 39.7, MCV 95.2, MCH 32.6, MCHC 34.2, RDW 15.0 H, Plt Count 227, MPV 6.7, Neut % (Auto) 69.5, Lymph % (Auto) 15.0, [place] % (Auto) 12.1, Eos % (Auto) 2.6, Baso % (Auto) 0.8, Nucleat RBC Rel Count 0.2, Neut # (Auto) 4.1, Lymph # (Auto) 0.9 L, [place] # (Auto) 0.7, Eos # (Auto) 0.1, Baso # (Auto) 0.0, ESR 16 - Home Medications and Allergies Allergies/Adverse Reactions: Allergies lisinopril Allergy (Verified 10/26/22 11:58) Swelling of Lip/Tongue/Throat sertraline [From Zoloft] Allergy (Verified 10/26/22 11:58) Swelling of Lip/Tongue/Throat chlordiazepoxide [From Librium] Adverse Reaction (Verified 10/26/22 11:58) Edema Home Medications: Home Medications quetiapine 100 mg tablet 100 mg PO QAM 04/05/21 [History Confirmed 09/19/22] aspirin 81 mg tablet,delayed release 81 mg PO DAILY 09/09/21 [History Confirmed 09/19/22] quetiapine 100 mg tablet 200 mg PO QHS 04/10/22 [History Confirmed 09/19/22] amlodipine 5 mg tablet 5 mg PO DAILY 09/04/22 [History Confirmed 09/19/22] folic acid 1 mg tablet 1 mg PO DAILY #60 tabs 11/01/22 [Rx] Dictated By: Yoselin Shane APRN DD/ 1105 Signed By: <Electronically signed by ERINN Shane> 11/07/22 1149 [facility] Work Phone: [phone]) 182-877405-23-2023 Hospital Discharge instructionsAmbulatory Orders* Initiate Home Health Time Frame: 1 Day, Location: Determined By Patient * Oncology Histology Time Frame: 10/03/22, Location: Determined By Patient * Oncology Histology Time Frame: 10/17/22, Location: Determined By Patient * Oncology Histology Time Frame: 10/10/22, Location: Determined By Patient [facility] Work Phone: 1(147) 344-296605-09-2023 Progress note Author Estela Varma [facility] September 19, 2022 10:02am Note Date/Time September 19, 2022 9:50am [facility] [place] [address] Hem/Onc Follow Up Note - OP Signed Patient: Kirill Echols MR#: [id number] : 1965 Acct:[id number] Age/Sex: 57 / M Type: REG RCR Copies to: MD Rylan Vega MD~ Date of Service: 09/19/2022 Time of Service: 09:49 - Assessment & Plan (1) Small cell lung cancer Plan: 1.) Limited stage small cell lung cancer, status post concurrent chemoradiation with carboplatin/etoposide, CR after 6 cycles of carboplatin, etoposide and atezolizumab. He did not complete a year of maintenance atezolizumab, stopped for patient preference LAST DOSE JUN 2020. Was tolerating well with some diarrhea PET/CT in August 2021 shows no evidence of active malignancy. Follow-up imagingin March 2022 with no evidence of disease but enlarging right-sided pleural effusion.. He has had longstanding chronic L sided chest discomfort. He has had a work-up as an outpatient recently from his PCP. He has left-sided chest pain but his pain is very much reproducible. Also he has enlarging (contralateral) right-sided pleural effusion. Dr Irene did diagnostic pleura aspiration was negative cytology mar 2022. fluid was EXUDATIVE suggestive of malignancy. ct c/a/p: 04/10/22 no obvious evidence cancer recurrence. s/p R pleurx catheter placement on 06/16/2022. Home health is draining this - pleural fluid is negative for malignancy HAS NOT BEEN TREATED SYSTEMICALLY SinCE JUN 2020. pet/ct in september 2022, is with no evidence of cancer. Pleural fluid with thoracentesis has been negative for malignancy; however, as noted above - we will request repeat cytology of pleural fluid x 3 consecutive samples it seems these have been sent as cultures, not as cytology, we will try to rectify this in the future. (2) Chest pain (3) Shortness of breath (4) Chronic hyponatremia (5) Weight loss Follow Up Instructions: f/u wth RN TRANSITIONAL CARE in 6 weeks, cbc, cmp b12, folate, epo, esr, cea iron studies, prior to f/u. check pet/ct in 3 months and f/u after send weekly CYTOLOGY on his lung fluid x 3 cbc, cmp, prior to 3 mos - History of Present Illness Chief Complaint: Patient is here for a 2 week follow up with PET scan 09/15/22 and outside labs for review. No concerns voiced at this time. HPI: 54-year-old -Mongolian gentleman history of smoking 40 pack years and moderate alcohol use had complaints of chest pain for last year and a half and has been seen by his physicians in the past. Recently, his chest pain got much worse and a CT scan of his chest showed paratracheal and hilar lymphadenopathy. He also had a PET CT scan which confirmed a hypermetabolic spiculated mass in the right apical region as well as right hilar and paratracheal lymphadenopathy. There was also involvement of the supra and subclavicular region on the right suggestive of metastatic lymphadenopathy. 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 He received cycle 1 carboplatin and etoposide for small cell neuroendocrine lungcancer on November 24, 2019 He was started on chemotherapy carbo etoposide and atezolizumab and finished his6 cycle of chemotherapy March 08, 2020. About 50% dose reduction under direction of Dr. Ash. Continued atezolizumab through maybe jun 2020. In Mar 2021. CT brain, chest abdomen and pelvis are negative for recurrence. CT imaging from 08/18/21 notes COMPARISON: 04/01/2021. Increasing subcarinal and predominantly right hilar soft tissue prominence suggesting disease recurrence. There is a new small right-sided pleural effusion. Emphysematous changes are noted with linear scarring or atelectasis, as above. No acute intra-abdominal pathology or evidence of new intra-abdominal metastatic disease. My own personal review of these images, not overwhelming for recurrence. He lives alone in [place]. His children live in [place]. His left him 8 months ago and he is very upset. as of august, very short of breath and fatigue, chest pressure. sleeps sitting up, very depresse. pet/ct on 09/02 notes FINDINGS: No hypermetabolic activity suspicious for malignancy is identified in the neck, chest, abdomen, or pelvis. Specifically, no abnormal uptake is seen in the subcarinal or right hilar regions. Laryngeal activity is presumably physiologic. There is physiologic activity in the heart and urinary tract. Otherwise, there is an [id number] on the left. The lungs demonstrate emphysematous changes. There is mild dependent subpleural atelectasis on the right. There are very small pericardial and right pleural effusions. There are calcifications in the head of the pancreas consistent with chronic pancreatitis. The wall of the urinary bladder appears mildly thickened, however, this finding is likely related to underdistention. IMPRESSION: No hypermetabolic activity suspicious for malignancy. ct c/a/p from 01/03/22 1. Increasing right-sided pleural effusion since the prior study. Metastatic effusion cannot be excluded. 2. Stable 9 mm indeterminate lesion involving the left lobe of the liver. No new liver lesions. Attention on follow-up is recommended. around then his short of breath and chest pressure improved quite significantly. ct c/a/p with contrast 04/10/22 ENLARGING RIGHT PLEURAL EFFUSION. BILATERAL ATELECTASIS AND SCARRING. ADVANCED OBSTRUCTIVE LUNG DISEASE. NO DEVELOPING ADENOPATHY. STABLE SMALL LEFT HEPATIC HYPODENSITY. NO ACUTE FINDINGS. In april started with R sided effusion, had hospitalization. He has thoracentesis aspirated from the R chest. cytology negative. 06/22/2022: Kirill is here for interval follow up; surveillance with history of limited stage small cell lung cancer - has been off all active cancer therapy x 2 years; since June 2020 - has had ongoing issues with shortness of breath, dyspnea on exertion and chestwall pain He recently underwent placement of right lung pleur-X catheter for recurrent pleural effusion with Dr. Duval on 04/15/2023 - he notes significant changes and improvement in his shortness of breath since placement; he notes some skin discomfort with position changes - no active draining; site is clean, dry, intact. Home health is emptying 1 timeper week. Denies new areas of pain, weight is stable; he has actually gained 8-10 pounds since his last visit here. Last CT scan of the chest, abdomen/pelvis on 04/10/2022 showed pleural effusion with no obvious recurrence or interval mass. 09/04/2022: Kirill is here for add on appointment after ER visit at [facility] on August 29, 2022 He went to the ER for new onset, left sided rib pain; felt like he had a cinderblock on his left chest wall Cardiac work up was done: nothing acute He had CT chest done that showed mild right pleural effusion; no enlarging lymphnodes or osseous lesions - there was mention of a right localized crescenteric pleural-based airspace consolidation suggestive of rounded atelectasis in the posterior right lower lobe and right middle lobe. Cannot exclude infection versus neoplasm. Clinically, he is feeling more tired and has lost weight When I saw him in June 2022; he had actually gained 8-10 pounds; but has since lost 10 pounds over the last 6-8 weeks Reports nothing tastes good He is more short of breath with exertion; but denies fever/chills, night sweats or new bony pain elsewhere He has productive cough at times; but not consistent; no hemoptysis 09/19/22 pet/ct from 09/15/22 notes Neck: No abnormal activityChest:No abnormal activity isseen within the mediastinum or hilar regions. No FDG avid lung nodule or mass. Right- sided Pleurx catheter is noted with residual pleural thickening without focal abnormal FDG activity. Abdomen/pelvis: No abnormal activity. Soft tissue/bones: No abnormal activity. CT findings: Emphysematous changes. No pneumothorax. Left-sided port is in place. No free air or free fluid. IMPRESSION: No PET/CT evidence of malignancy is seen. he continues to get twice weekly drainage of his pleuryx. the last two times heonly had about 100cc out. He is doing well overall. He does note getting winded a bit on exertion. he feels he is deconditioned. - Physical Exam ECOG PS: 0 General : patient is thin, alert and oriented to person place and time, no acutedistress. Neck: no JVD or thyromegaly. Lymph: no cervical, supraclavicular, axillary adenopathy. Heart: regular rate and rhythm no murmurs rubs or gallops. Chest wall: right lung pleurx catheter with dressing intact; clean, dry. Abdomen: soft nontender nondistended, no hepatosplenomegaly. Lungs: cta bl, no wheezes, rales, rhonchi Extremities: no clubbing cyanosis. . - Time with Patient Coordination of Care & Counseling Time: Greater than 50% of time spent with patient was for coordination of care (as documented) and [id number] counseling of patient and/or family. 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 On home oxygen therapy 4 Pancreatitis Pneumothorax Port-A-Cath in place left chest wall Recurrent right pleural effusion Small cell lung cancer s/p chemo & radiation. undergoing Imunnotherapy Suicidal ideation TOS (thoracic outlet syndrome) Urinary retention with incomplete bladder emptying - Surgical History Surgical History: Surgical History (Last Reviewed 06/16/22 @ 19:33 by Jackie Fraga, ANP-BC) H/O vasectomy H/O wrist surgery Right side, 2006 Hx of hernia repair - Family History Family History: Family History (Last Reviewed 06/16/22 @ 19:33 by Jackie Fraga, ANP-BC) Mother Colon cancer Diabetes mellitus, type 2 Father Prostate cancer Cardiovascular disease Hypertension Brother Diabetes mellitus, type 2 Hypertension Sister Hypertension - Social History Smoking Status: Former smoker Tobacco Type: cigarettes Substance Use Type: None Substance Abuse Comment: social Additional Data - Additional Objective Data Height/Weight: Height 6 ft Weight 70.398 kg BSA for Today's Weight 1.92 Vital Signs: 09/19/22 09:33 Pulse Rate [Right Brachial] 85 Respiratory Rate 20 Blood Pressure [Right Arm] 128/85 02 Sat by Pulse Oximetry 97 Oxygen Delivery Method Room Air Distress Screening: RN Distress Screening Start: 11/18/19 12:21 Freq: Status: Complete Protocol: Document 11/18/19 12:56 AA (Rec: 11/18/19 12:58 AA [id number]) Distress Screening Distress Score: 10 Worst distress/worry Emotional Concerns Feeling uncertain about the future Distress Screening Total 10 Distress score of 4 or more discussed Yes with patient? RN Distress Screening Start: 11/24/19 08:55 Freq: Q30D Status: Active Protocol: Document 03/01/22 15:44 KB (Rec: 03/01/22 15:45 KB [id number]) Distress Screening Distress score of 4 or more discussed Yes with patient? Distress screening follow up: Has has recent family deaths lately. Spoke with patient, denies needs/assistance. - Lab Results Diagram of Most Recent CBC and CMP 04/10/22 08:30 04/10/22 08:30 - Home Medications and Allergies Allergies/Adverse Reactions: Allergies lisinopril Allergy (Verified 09/04/22 11:25) Swelling of Lip/Tongue/Throat sertraline [From Zoloft] Allergy (Verified 09/04/22 11:25) Swelling of Lip/Tongue/Throat chlordiazepoxide [From Librium] Adverse Reaction (Verified 09/04/22 11:25) Edema Home Medications: Home Medications quetiapine 100 mg tablet 100 mg PO QAM 04/05/21 [History Confirmed 09/19/22] aspirin 81 mg tablet,delayed release 81 mg PO DAILY 09/09/21 [History Confirmed 09/19/22] quetiapine 100 mg tablet 200 mg PO QHS 04/10/22 [History Confirmed 09/19/22] amlodipine 5 mg tablet 5 mg PO DAILY 09/04/22 [History Confirmed 09/19/22] Dictated By: Estela Varma II, DO DD/ 0949 Signed By: <Electronically signed by Estela Varma II, DO> 09/19/22 1002 [facility] Work Phone: 1([phone]) 296-221604-24-2023 Progress note Author [facility] September 04, 2022 12:17pm Note Date/Time September 04, 2022 12: 04pm [facility] [place] [address] Hem/Onc Follow Up Note - OP Signed Patient: Kirill Echols MR#: [id number] : 1965 Acct:[id number] Age/Sex: 57 / M Type: REG RCR Copies to: MD Rylan Vega MD~ Subjective Date/Time of Service: Date of Service: 09/04/2022 Time of Service: 11:56 Chief Complaint: Patient is here today for a follow up visit for small cell lung cancer. He went to [place] ER for chest pressure 08-27-[address] scan for review HPI: 54-year-old -Mong[place] gentleman history of smoking 40 pack years and moderate alcohol use had complaints of chest pain for last year and a half and has been seen by his physicians in the past. Recently, his chest pain got much worse and a CT scan of his chest showed paratracheal and hilar lymphadenopathy. He also had a PET CT scan which confirmed a hypermetabolic spiculated mass in the right apical region as well as right hilar and paratracheal lymphadenopathy. There was also involvement of the supra and subclavicular region on the right suggestive of metastatic lymphadenopathy. 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 He received cycle 1 carboplatin and etoposide for small cell neuroendocrine lungcancer on November 24, 2019 He was started on chemotherapy carbo etoposide and atezolizumab and finished his6 cycle of chemotherapy March 08, 2020. About 50% dose reduction under direction of Dr. Ash. Continued atezolizumab through maybe jun 2020. In Mar 2021. CT brain, chest abdomen and pelvis are negative for recurrence. 08/22/[address] imaging from 08/18/21 notes COMPARISON: 04/01/2021. Increasing subcarinal and predominantly right hilar soft tissue prominence suggesting disease recurrence. There is a new small right-sided pleural effusion. Emphysematous changes are noted with linear scarring or atelectasis, as above. No acute intra-abdominal pathology or evidence of new intra-abdominal metastatic disease. My own personal review of these images, not overwhelming for recurrence. He lives alone in [place]. His children live in [place]. His left him 8 months ago and he is very upset. He has been feeling increasing short of breath and fatigue. Also notes a brick sitting on his chest sensation. He sleeps sitting up with his feet on the table. He notes a sharp pain recurring, previously this had got mostly better. Not eating for the last few months. He notes depression for the last two years is pretty severe. 09/05/[address] Andrea. had a pet/ct on 09/02 notes FINDINGS: No hypermetabolic activity suspicious for malignancy is identified in the neck, chest, abdomen, or pelvis. Specifically, no abnormal uptake is seen in the subcarinal or right hilar regions. Laryngeal activity is presumably physiologic. There is physiologic activity in the heart and urinary tract. Otherwise, there is an Coalcj-g-Uinf on the left. The lungs demonstrate emphysematous changes. There is mild dependent subpleural atelectasis on the right. There are very small pericardial and right pleural effusions. There are calcifications in the head of the pancreas consistent with chronic pancreatitis. The wall of the urinary bladder appears mildly thickened, however, this finding is likely related to underdistention. IMPRESSION: No hypermetabolic activity suspicious for malignancy. His pain in chest persists. He describes it as a chest pain heaviness/numbness. like a tip of a needle that pokes just to the left of her sternum. It limits his quality of life. He has not had a stress test in a while. He has upcoming workup for his heart through Dr. Andrea soon. He is considering moving back down to [facility] where he is from. 02/27/22 he didnt f/u after his cts in december. ct c/a/p from 01/03/22 1. Increasing right-sided pleural effusion since the prior study. Metastatic effusion cannot be excluded. 2. Stable 9 mm indeterminate lesion involving the left lobe of the liver. No new liver lesions. Attention on follow-up is recommended. he still gets the pain in his chest when he becomes active. Although today he describes as a pin at the end of a needle is red hot in mid lower back, he states where they did the radiation. He admits it is dramatically improved frompreviously. He does note he is more short of breath on exertion. He quit smoking 2 years ago. 04/11/[address] c/a/p with contrast 04/10/22 ENLARGING RIGHT PLEURAL EFFUSION. BILATERAL ATELECTASIS AND SCARRING. ADVANCED OBSTRUCTIVE LUNG DISEASE. NO DEVELOPING ADENOPATHY. STABLE SMALL LEFT HEPATIC HYPODENSITY. NO ACUTE FINDINGS. currently inpatient admitted yesterday discharging soon. he had chest pain L side and admitted for observation. it was very reproducible. persists today 4/[address] irene has offered to perform a bedside pleural fluid aspiration R side before he goes. 04/14/22 he is feeling increasingly winded recently. Still same pain in L chest. He has fluid aspirated from the R chest. cytology negative. 06/22/2022: Kirill is here for interval follow up; surveillance with history of limited stage small cell lung cancer - has been off all active cancer therapy x 2 years; since June 2020 - has had ongoing issues with shortness of breath, dyspnea on exertion and chestwall pain He recently underwent placement of right lung pleur-X catheter for recurrent pleural effusion with Dr. Duval on 04/15/2023 - he notes significant changes and improvement in his shortness of breath since placement; he notes some skin discomfort with position changes - no active draining; site is clean, dry, intact. Home health is emptying 1 timeper week. Denies new areas of pain, weight is stable; he has actually gained 8-10 pounds since his last visit here. Last CT scan of the chest, abdomen/pelvis on 04/10/2022 showed pleural effusion with no obvious recurrence or interval mass. 09/04/2022: Kirill is here for add on appointment after ER visit at [facility] on August 29, 2022 He went to the ER for new onset, left sided rib pain; felt like he had a cinderblock on his left chest wall Cardiac work up was done: nothing acute He had CT chest done that showed mild right pleural effusion; no enlarging lymphnodes or osseous lesions - there was mention of a right localized crescenteric pleural-based airspace consolidation suggestive of rounded atelectasis in the posterior right lower lobe and right middle lobe. Cannot exclude infection versus neoplasm. Clinically, he is feeling more tired and has lost weight When I saw him in June 2022; he had actually gained 8-10 pounds; but has since lost 10 pounds over the last 6-8 weeks Reports nothing tastes good He is more short of breath with exertion; but denies fever/chills, night sweats or new bony pain elsewhere He has productive cough at times; but not consistent; no hemoptysis ROS Details: All systems reviewed & no additional complaints except as documented Subjective/ROS - Narrative: Residual and chronic left-sided chest complaints. 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 On home oxygen therapy 4 Pancreatitis Pneumothorax Port-A-Cath in place left chest wall Recurrent right pleural effusion Small cell lung cancer s/p chemo & radiation. undergoing Imunnotherapy Suicidal ideation TOS (thoracic outlet syndrome) Urinary retention with incomplete bladder emptying - Surgical History Surgical History: Surgical History (Last Reviewed 06/16/22 @ 19:33 by MYRON Cano-KAYY) H/O vasectomy H/O wrist surgery Right side, 2005 Hx of hernia repair - Family History Family History: Family History (Last Reviewed 06/16/22 @ 19:33 by MYRON Cano-KAYY) Mother Colon cancer Diabetes mellitus, type 2 Father Prostate cancer Cardiovascular disease Hypertension Brother Diabetes mellitus, type 2 Hypertension Sister Hypertension - Social History Smoking Status: Former smoker Tobacco Type: cigarettes Substance Use Type: None Substance Abuse Comment: social Home Medications & Allergies Allergies lisinopril Allergy (Verified 09/04/22 11:25) Swelling of Lip/Tongue/Throat sertraline [From Zoloft] Allergy (Verified 09/04/22 11:25) Swelling of Lip/Tongue/Throat chlordiazepoxide [From Librium] Adverse Reaction (Verified 09/04/22 11:25) Edema Home Medications quetiapine 100 mg tablet 100 mg PO QAM 04/05/21 [History Confirmed 09/04/22] aspirin 81 mg tablet,delayed release 81 mg PO DAILY 09/09/21 [History Confirmed 09/04/22] quetiapine 100 mg tablet 200 mg PO QHS 04/10/22 [History Confirmed 09/04/22] amlodipine 5 mg tablet 5 mg PO DAILY 09/04/22 [History Confirmed 09/04/22] Objective - Resuscitation Status Resuscitation Status: Full Code - Height/Weight Height/Weight: Height 6 ft Weight 68.492 kg BSA for Today's Weight 1.92 - Vital Signs Vital Signs: 09/04/22 11:26 Temperature 98.6 F Pulse Rate [Right Brachial] 103 H Respiratory Rate 16 02 Sat by Pulse Oximetry 97 Oxygen Delivery Method Room Air - Pain Anterior Chest Pain Intensity: 6 Shoulder Pain Intensity: 3 Right Neck Pain Intensity: 3 Back Pain Intensity: 5 Generalized Pain Intensity: 5 - Distress Screening Distress Screen Results: RN Distress Screening Start: 11/18/19 12:21 Freq: Status: Complete Protocol: Document 11/18/19 12:56 AA (Rec: 11/18/19 12:58 AA [id number]) Distress Screening Distress Score: 10 Worst distress/worry Emotional Concerns Feeling uncertain about the future Distress Screening Total 10 Distress score of 4 or more discussed Yes with patient? RN Distress Screening Start: 11/24/19 08:55 Freq: Q30D Status: Active Protocol: Document 03/01/22 15:44 KB (Rec: 03/01/22 15:45 KB [id number]) Distress Screening Distress score of 4 or more discussed Yes with patient? Distress screening follow up: Has has recent family deaths lately. Spoke with patient, denies needs/assistance. Physical Exam Narrative: ECOG PS: 0 General : patient is thin, alert and oriented to person place and time, no acutedistress. Neck: no JVD or thyromegaly. Lymph: no cervical, supraclavicular, axillary adenopathy. Heart: regular rate and rhythm no murmurs rubs or gallops. Chest wall: right lung pleurx catheter with dressing intact; clean, dry. Abdomen: soft nontender nondistended, no hepatosplenomegaly. Lungs: cta bl, no wheezes, rales, rhonchi Extremities: no clubbing cyanosis. . - ECOG Performance Status ECOG Score: 1 Results - Labs Labs: Diagram of Most Recent CBC and CMP 04/10/22 08:30 04/10/22 08:30 Assessment and Plan (1) Small cell lung cancer 1.) Limited stage small cell lung cancer, status post concurrent chemoradiation with carboplatin/etoposide, CR after 6 cycles of carboplatin, etoposide and atezolizumab. He did not complete a year of maintenance atezolizumab, stopped for patient preference. Was tolerating well with some diarrhea PET/CT in August 2021 shows no evidence of active malignancy. Follow-up imagingin March 2022 with no evidence of disease but enlarging right-sided pleural effusion.. He has had longstanding chronic L sided chest discomfort. He has had a work-up as an outpatient recently from his PCP. He has left-sided chest pain but his pain is very much reproducible. Also he has enlarging (contralateral) right-sided pleural effusion. Dr Irene did diagnostic pleura aspiration was negative cytology mar 2022. fluid was EXUDATIVE suggestive of malignancy. ct c/a/p: 04/10/22 no obvious evidence cancer recurrence. 06/22/2022: Interval follow up; s/p pleurx catheter placement on 06/16/2022. Home health is draining this...next follow up with [facility] next week. - pleural fluid is negative for malignancy - no other new concerns or constitutional symptoms - follow up in 2 months with scans - CT C/A/P - this will be ~ 6 months from last set of scans. - sooner with any new or worsening symptoms; now 2 years out from completion of treatment. 09/04/2022: Kirill is here for add on appointment after ER visit at [facility] on August 29, 2022 He went to the ER for acute on chronic, left sided rib pain; felt like he had a cinder block on his left chest wall Cardiac work up was done: nothing acute - normal range troponins He had CT chest done on 08/29/2022 that showed mild right pleural effusion; no enlarging lymph nodes or osseous lesions - there was mention of a right localized crescenteric pleural-based airspace consolidation suggestive of rounded atelectasis in the posterior right lower lobe and right middle lobe. Cannot exclude infection versus neoplasm. Clinically, he is feeling more tired and has lost weight When I saw him in June 2022; he had actually gained 8-10 pounds; but has since lost 10 pounds over the last 6-8 weeks Reports nothing tastes good He is more short of breath with exertion; but denies fever/chills, night sweats or new bony pain elsewhere He has productive cough at times; but not consistent; no hemoptysis Case discussed with Dr. Varma - plan as below. Plan: 1.) Due to ongoing pain, ongoing drainage from right lung pleurx catheter and new unintentional weight loss and excessive fatigue; we will order PET/CT scan to further characterize his most recent findings on chest CT - as noted above. 2.) Will also check pleural fluid cytology x 3 - orders sent today to home health care nurse at [facility]. 3.) Follow up with Dr. Varma to review PET/CT results and pleural fluid results. 2.) Shortness of breath/dyspnea on exertion - s/p thoracentesis with improvement but reaccumulation - s/p right lung pleurx catheter per Dr. Duval on 06/16/2022 - significant improvement in shortness of breath - having some pain with catheter site; no obvious evidence of cancer recurrence 09/04/2022: Pleural fluid with thoracentesis has been negative for malignancy; however, as noted above - we will request repeat cytology of pleural fluid x 3 consecutive samples 3.) Chest wall pain - no active cancer; he is gaining weight - pain is ongoing; with multiple previous work up - advised tylenol and NSAID - trial different methods 09/04/2022: ER visit on 08/29/2022 for this. Pain is on left side; ongoing since his therapy. Labs were relatively stable at ER visit; no significant anemia or cytopenias. Troponin - 5.6; and 5.8; no acute cardiac issue. No obvious bony lesion or traumatic event noted on imaging that would correlate to his pain. 4.) Hyponatremia - likely secondary to daily alcohol consumption - this is ongoing and has been present consistently x years 5.) Weight loss - has lost 10 pounds since last clinic visit 8 weeks ago (2) Chest pain (3) Shortness of breath (4) Chronic hyponatremia (5) Weight loss - Time with Patient Time Spent with Patient (Follow Up Visit): 35 minutes - outside records, order PET/CT scan, review images Coordination of Care & Counseling Time: Greater than 50% of time spent with patient was for coordination of care (as documented) and [id number] counseling of patient and/or family. Dictated By: Dixie Olivia APRN DD/ [id number] Signed By: <Electronically signed by ERINN Olivia> 09/04/22 1217 [facility] Work Phone: [phone]) 989-850802-09-2023 Progress note Author Dixie Olivia [facility] June 22, 2022 2:24pm Note Date/Time June 22, 2022 2 :16pm [facility] [place] [address] Hem/Onc Follow Up Note - OP Signed Patient: Kirill Echols MR#: [id number] : 1965 Acct:[id number] Age/Sex: 57 / M Type: REG RCR Copies to: MD Rylan Vega MD~ Subjective Date/Time of Service: Date of Service: 06/22/2022 Time of Service: 14:09 Chief Complaint: Patient is here for a 2 month follow up with, had chest tube placed 06/16/2022. No concerns voiced at this time. HPI: 54-year-old -Mong[place]ian gentleman history of smoking 40 pack years and moderate alcohol use had complaints of chest pain for last year and a half and has been seen by his physicians in the past. Recently, his chest pain got much worse and a CT scan of his chest showed paratracheal and hilar lymphadenopathy. He also had a PET CT scan which confirmed a hypermetabolic spiculated mass in the right apical region as well as right hilar and paratracheal lymphadenopathy. There was also involvement of the supra and subclavicular region on the right suggestive of metastatic lymphadenopathy. 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 He received cycle 1 carboplatin and etoposide for small cell neuroendocrine lungcancer on November 24, 2019 He was started on chemotherapy carbo etoposide and atezolizumab and finished his6 cycle of chemotherapy March 08, 2020. About 50% dose reduction under direction of Dr. Ash. Continued atezolizumab through maybe jun 2020. In Mar 2021. CT brain, chest abdomen and pelvis are negative for recurrence. 08/22/[address] imaging from 08/18/21 notes COMPARISON: 04/01/2021. Increasing subcarinal and predominantly right hilar soft tissue prominence suggesting disease recurrence. There is a new small right-sided pleural effusion. Emphysematous changes are noted with linear scarring or atelectasis, as above. No acute intra-abdominal pathology or evidence of new intra-abdominal metastaticdisease. My own personal review of these images, not overwhelming for recurrence. He lives alone in [place]. His children live in [place]. His left him 8 months ago and he is very upset. He has been feeling increasing short of breath and fatigue. Also notes a brick sitting on his chest sensation. He sleeps sitting up with his feet on the table. He notes a sharp pain recurring, previously this had got mostly better. Not eating for the last few months. He notes depression for the last two years is pretty severe. 09/05/[address] Andrea. had a pet/ct on 09/02 notes FINDINGS: No hypermetabolic activity suspicious for malignancy is identified in the neck, chest, abdomen, or pelvis. Specifically, no abnormal uptake is seen in the subcarinal or right hilar regions. Laryngeal activity is presumably physiologic. There is physiologic activity in the heart and urinary tract. Otherwise, there is an [id number] on the left. The lungs demonstrate emphysematous changes. There is mild dependent subpleural atelectasis on the right. There are very small pericardial and right pleural effusions. There are calcifications in the head of the pancreas consistent with chronic pancreatitis. The wall of the urinary bladder appears mildly thickened, however, this finding is likely related to underdistention. IMPRESSION: No hypermetabolic activity suspicious for malignancy. His pain in chest persists. He describes it as a chest pain heaviness/numbness. like a tip of a needle that pokes just to the left of her sternum. It limits his quality of life. He has not had a stress test in a while. He has upcoming workup for his heart through Dr. Andrea soon. He is considering moving back down to [facility] where he is from. 02/27/22 he didnt f/u after his cts in december. ct c/a/p from 01/03/22 1. Increasing right-sided pleural effusion since the prior study. Metastatic effusion cannot be excluded. 2. Stable 9 mm indeterminate lesion involving the left lobe of the liver. No new liver lesions. Attention on follow-up is recommended. he still gets the pain in his chest when he becomes active. ALthough today he describes as a pin at the end of a needle is red hot in mid lower back, he states where they did the radiation. He admits it is dramatically improved frompreviously. He does note he is more short of breath on exertion. He quit smoking 2 years ago. 04/11/[address] c/a/p with contrast 04/10/22 ENLARGING RIGHT PLEURAL EFFUSION. BILATERAL ATELECTASIS AND SCARRING. ADVANCED OBSTRUCTIVE LUNG DISEASE. NO DEVELOPING ADENOPATHY. STABLE SMALL LEFT HEPATIC HYPODENSITY. NO ACUTE FINDINGS. currently inpatient admitted yesterday discharging soon. he had chest pain L side and admitted for observation. it was very reproducible. persists today 4/[address] irene has offered to perform a bedside pleural fluid aspiration R side before he goes. 04/14/22 he is feeling increasingly winded recently. Still same pain in L chest. He has fluid aspirated from the R chest. cytology negative. 06/22/2022: Kirill is here for interval follow up; surveillance with history of limited stage small cell lung cancer - has been off all active cancer therapy x 2 years; since June 2020 - has had ongoing issues with shortness of breath, dyspnea on exertion and chestwall pain He recently underwent placement of right lung pleur-X catheter for recurrent pleural effusion with Dr. Duval on 04/15/2023 - he notes significant changes and improvement in his shortness of breath since placement; he notes some skin discomfort with position changes - no active draining; site is clean, dry, intact. Home health is emptying 1 timeper week. Denies new areas of pain, weight is stable; he has actually gained 8-10 pounds since his last visit here. Last CT scan of the chest, abdomen/pelvis on 04/10/2022 showed pleural effusion with no obvious recurrence or interval mass. ROS Details: All systems reviewed & no additional complaints except as documented Subjective/ROS - Narrative: Residual and chronic left-sided chest complaints. It sometimes goes down his arm. It feels like someone is sitting on his chest. It comes on with exertion. He gets it at night. He usually rests and it goes away; no nausea vomiting or diaphoresis. No orthostasis or dizziness or palpitations. 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 On home oxygen therapy 4 Pancreatitis Pneumothorax Port-A-Cath in place left chest wall Small cell lung cancer s/p chemo & radiation. undergoing Imunnotherapy Suicidal ideation TOS (thoracic outlet syndrome) Urinary retention with incomplete bladder emptying - Surgical History Surgical History: Surgical History (Last Reviewed 06/16/22 @ 19:33 by MAYI Cano) H/O vasectomy H/O wrist surgery Right side, 2005 Hx of hernia repair - Family History Family History: Family History (Last Reviewed 06/16/22 @ 19:33 by MAYI Cano) Mother Colon cancer Diabetes mellitus, type 2 Father Prostate cancer Cardiovascular disease Hypertension Brother Diabetes mellitus, type 2 Hypertension Sister Hypertension - Social History Smoking Status: Former smoker Tobacco Type: cigarettes Substance Use Type: None Substance Abuse Comment: social Home Medications & Allergies Allergies lisinopril Allergy (Verified 04/10/22 09:54) Swelling of Lip/Tongue/Throat sertraline [From Zoloft] Allergy (Verified 04/10/22 09:54) Swelling of Lip/Tongue/Throat Home Medications quetiapine 100 mg tablet 100 mg PO QAM 04/05/21 [History Confirmed 06/22/22] aspirin 81 mg tablet,delayed release 81 mg PO DAILY 09/09/21 [History Confirmed 06/22/22] fluticasone 250 mcg-salmeterol 50 mcg/dose blistr powdr for inhalation (Advair Diskus) 1 inh inhalation DAILY 09/09/21 [History Confirmed 06/22/22] melatonin 3 mg tablet 3 mg PO HS PRN Insomnia 04/10/22 [History Confirmed 06/22/22] quetiapine 100 mg tablet 200 mg PO QHS 04/10/22 [History Confirmed 06/22/22] mirtazapine 15 mg tablet 15 mg PO QHS 06/15/22 [History Confirmed 06/22/22] ondansetron HCl 4 mg tablet 4 mg PO DAILY PRN Nausea 06/15/22 [History Confirmed 06/22/22] hydrocodone 5 mg-acetaminophen 325 mg tablet 1 - 2 tab PO Q6H PRN Pain Scale 6 - 10 5 days #40 tabs 06/17/22 [Rx Confirmed 06/22/22] Objective - Resuscitation Status Resuscitation Status: Full Code - Height/Weight Height/Weight: Height 6 ft Weight 73.2 kg BSA for Today's Weight 1.92 - Vital Signs Vital Signs: 06/22/22 13:07 Temperature 98 F Pulse Rate [Right Brachial] 112 H Respiratory Rate 20 Blood Pressure [Right Arm] 137/88 02 Sat by Pulse Oximetry 99 Oxygen Delivery Method Room Air - Pain Anterior Chest Pain Intensity: 6 Shoulder Pain Intensity: 3 Right Neck Pain Intensity: 3 Back Pain Intensity: 7 Generalized Pain Intensity: 5 - Distress Screening Distress Screen Results: RN Distress Screening Start: 11/18/19 12:21 Freq: Status: Complete Protocol: Document 11/18/19 12:56 AA (Rec: 11/18/19 12:58 AA [id number]) Distress Screening Distress Score: 10 Worst distress/worry Emotional Concerns Feeling uncertain about the future Distress Screening Total 10 Distress score of 4 or more discussed Yes with patient? RN Distress Screening Start: 11/24/19 08:55 Freq: Q30D Status: Active Protocol: Document 03/01/22 15:44 KB (Rec: 03/01/22 15:45 KB [id number]) Distress Screening Distress score of 4 or more discussed Yes with patient? Distress screening follow up: Has has recent family deaths lately. Spoke with patient, denies needs/assistance. Physical Exam Narrative: ECOG PS: 0 General : patient is alert and oriented to person place and time, no acute distress. Neck: no JVD or thyromegaly. Lymph: no cervical, supraclavicular, axillary adenopathy. Heart: regular rate and rhythm no murmurs rubs or gallops. Chest wall: right lung pleurx catheter with dressing intact; clean, dry. Abdomen: soft nontender nondistended, no hepatosplenomegaly. Lungs: cta bl, no wheezes, rales, rhonchi Extremities: no clubbing cyanosis. . - ECOG Performance Status ECOG Score: 0 Results - Labs Labs: Diagram of Most Recent CBC and CMP 04/10/22 08:30 04/10/22 08:30 Assessment and Plan (1) Small cell lung cancer 1.) Limited stage small cell lung cancer, status post concurrent chemoradiation with carboplatin/etoposide, CR after 6 cycles of carboplatin, etoposide and atezolizumab. He did not complete a year of maintenance atezolizumab, stopped for patient preference. Was tolerating well with some diarrhea PET/CT in August 2021 shows no evidence of active malignancy. Follow-up imagingin March 2022 with no evidence of disease but enlarging right-sided pleural effusion.. He has had longstanding chronic L sided chest discomfort. He has had a work-up as an outpatient recently from his PCP. He has left-sided chest pain but his pain is very much reproducible. Also he has enlarging (contralateral) right-sided pleural effusion. Dr Irene did diagnostic pleura aspiration was negative cytology mar 2022. fluid was EXUDATIVE suggestive of malignancy. ct c/a/p: 04/10/22 no obvious evidence cancer recurrence. 06/22/2022: Interval follow up; s/p pleurx catheter placement on 06/16/2022. Home health is draining this...next follow up with Elena next week. - pleural fluid is negative for malignancy - no other new concerns or constitutional symptoms - follow up in 2 months with scans - CT C/A/P - this will be ~ 6 months from last set of scans. - sooner with any new or worsening symptoms; now 2 years out from completion of treatment. 2.) Shortness of breath/dyspnea on exertion - s/p thoracentesis with improvement but reaccumulation - s/p right lung pleurx catheter per Dr. Duval on 06/16/2022 - significant improvement in shortness of breath - having some pain with catheter site; no obvious evidence of cancer recurrence Pleural fluid with thoracentesis has been negative for malignancy 3.) Chest wall pain - no active cancer; he is gaining weight - pain is ongoing; with multiple previous work up - advised tylenol and NSAID - trial different methods 4.) Hyponatremia - likely secondary to daily alcohol consumption - this is ongoing and has been present consistently x years (2) Chest pain (3) Shortness of breath (4) Chronic hyponatremia - Time with Patient Time Spent with Patient (Follow Up Visit): 35 minutes Coordination of Care & Counseling Time: Greater than 50% of time spent with patient was for coordination of care (as documented) and [id number] counseling of patient and/or family. Dictated By: Dixie Olivia APRN DD/ [id number] Signed By: <Electronically signed by ERINN Olivia> 06/22/22 1429 [facility] Work Phone: 1(211) 374-799202-02-2023 Evaluation note* Encounter Date Diagnosis Assessment Notes Treatment Notes Treatment Clinical Notes Jun, Pleural effusion (ICD-10 - J90) I had a long discussion with the patient today about rapidly recurring right pleural effusion, with associated malignancy, this will likely require frequent drainage procedures, and it would be more appropriate to place Pleurx catheter for repeated drainage that he can do at home. I contacted Dr. Duval, to see if Pleurx catheter can be placed in a timely fashion otherwise I can schedule him for thoracentesis tomorrow. This seems to be arranged for tomorrow now so we will refer patient to Dr. Duval for baseline work-up that he needs prior to a planned procedure late in the morning tomorrow Jun, Chronic obstructive pulmonary disease, unspecified COPD type (ICD-10 - J44.9) Jun, Small cell carcinoma of lung (ICD-10 - C34.90) [facility] Other 01-18-2023 Evaluation note* Encounter Date Diagnosis Assessment Notes Treatment Notes Treatment Clinical Notes May, Small cell carcinoma of lung (ICD-10 - C34.90) Please let me know lung CT scan to review schedule thoracentesis if needed May, Chronic obstructive pulmonary disease, unspecified COPD type (ICD-10 - J44.9) May, Shortness of breath (ICD-10 - R06.02) May, Pleural effusion (ICD-10 - J90) [facility] Other 12-02-2022 Progress note Author Estela Varma [facility] April 14, 2022 12:02pm Note Date/Time April 14, 2022 1 1:50am [facility] [place] [address] Hem/Onc Follow Up Note - OP Signed Patient: Kirill Echols MR#: [id number] : 1965 Acct:[id number] Age/Sex: 56 / M Type: REG RCR Copies to: MD Rylan Vega MD~ Date of Service: 04/14/2022 Time of Service: 11:49 - Assessment & Plan (1) Small cell lung cancer Plan: Limited stage small cell lung cancer, status post concurrent chemoradiation withcarboplatin/etoposide, CR after 6 cycles of carboplatin, etoposide and atezolizumab. He did not complete a year of maintenance atezolizumab, stopped for patient preference. Was tolerating well with some diarrhea PET/CT in August 2021 shows no evidence of active malignancy. Follow-up imagingin March 2022 with no evidence of disease but enlarging right-sided pleural effusion.. He has had longstanding chronic L sided chest discomfort. He has had a work-up as an outpatient recently from his PCP. He has left-sided chest pain but his pain is very much reproducible. Also he has enlarging (contralateral) right-sided pleural effusion. Dr Irene did diagnostic pleura aspiration was negative cytology mar 2022. fluid was EXUDATIVE suggestive of malignancy. ct c/a/p 11/28/22 no obvious evidence cancer recurrence. for sob will attempt thoracentesis, i doubt will help him dramatically but wortha try also will send cytology again. (2) Chest pain Follow Up Instructions: refer to pulmonary for pleural fluid. set up for therapeutic throacentesis in IR> f/u with me in a month. - History of Present Illness Chief Complaint: Patient is here for a 6 week follow up with labs and scans for review. He was hospitalized earlier this week. States he has no appetite. No other concerns voiced at this time. HPI: 54-year-old -[place]ong[place] gentleman history of smoking 40 pack years and moderate alcohol use had complaints of chest pain for last year and a half and has been seen by his physicians in the past. Recently, his chest pain got much worse and a CT scan of his chest showed paratracheal and hilar lymphadenopathy. He also had a PET CT scan which confirmed a hypermetabolic spiculated mass in the right apical region as well as right hilar and paratracheal lymphadenopathy. There was also involvement of the supra and subclavicular region on the right suggestive of metastatic lymphadenopathy. 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 He received cycle 1 carboplatin and etoposide for small cell neuroendocrine lungcancer on November 24, 2019 He was started on chemotherapy carbo etoposide and atezolizumab and finished his6 cycle of chemotherapy March 08, 2020. About 50% dose reduction under direction of Dr. Ash. Continued atezolizumab through Jun 2020. In Mar 2021. CT brain, chest abdomen and pelvis are negative for recurrence. 08/22/[address] imaging from 08/18/21 notes COMPARISON: 04/01/2021. Increasing subcarinal and predominantly right hilar soft tissue prominence suggesting disease recurrence. There is a new small right-sided pleural effusion. Emphysematous changes are noted with linear scarring or atelectasis, as above. No acute intra-abdominal pathology or evidence of new intra-abdominal metastaticdisease. My own personal review of these images, not overwhelming for recurrence. He lives alone in [place]. His children live in [place]. His left him 8 months ago and he is very upset. He has been feeling increasing short of breath and fatigue. Also notes a brick sitting on his chest sensation. He sleeps sitting up with his feet on the table. He notes a sharp pain recurring, previously this had got mostly better. Not eating for the last few months. He notes depression for the last two years is pretty severe. 09/05/[address] Andrea. had a pet/ct on 09/02 notes FINDINGS: No hypermetabolic activity suspicious for malignancy is identified in the neck, chest, abdomen, or pelvis. Specifically, no abnormal uptake is seen in the subcarinal or right hilar regions. Laryngeal activity is presumably physiologic. There is physiologic activity in the heart and urinary tract. Otherwise, there is an Jfhaor-a-Bwqp on the left. The lungs demonstrate emphysematous changes. There is mild dependent subpleural atelectasis on the right. There are very small pericardial and right pleural effusions. There are calcifications in the head of the pancreas consistent with chronic pancreatitis. The wall of the urinary bladder appears mildly thickened, however, this finding is likely related to underdistention. IMPRESSION: No hypermetabolic activity suspicious for malignancy. His pain in chest persists. He describes it as a chest pain heaviness/numbness. like a tip of a needle that pokes just to the left of her sternum. It limits his quality of life. He has not had a stress test in a while. He has upcoming workup for his heart through Dr. Andrea soon. He is considering moving back down to [facility] where he is from. 02/27/22 he didnt f/u after his cts in december. ct c/a/p from 01/03/22 1. Increasing right-sided pleural effusion since the prior study. Metastatic effusion cannot be excluded. 2. Stable 9 mm indeterminate lesion involving the left lobe of the liver. No new liver lesions. Attention on follow-up is recommended. he still gets the pain in his chest when he becomes active. ALthough today he describes as a pin at the end of a needle is red hot in mid lower back, he states where they did the radiation. He admits it is dramatically improved frompreviously. He does note he is more short of breath on exertion. He quit smoking 2 years ago. 04/11/[address] c/a/p with contrast 04/10/22 ENLARGING RIGHT PLEURAL EFFUSION. BILATERAL ATELECTASIS AND SCARRING. ADVANCED OBSTRUCTIVE LUNG DISEASE. NO DEVELOPING ADENOPATHY. STABLE SMALL LEFT HEPATIC HYPODENSITY. NO ACUTE FINDINGS. currently inpatient admitted yesterday discharging soon. he had chest pain L side and admitted for observation. it was very reproducible. persists today 4/[address] irene has offered to perform a bedside pleural fluid aspiration R side before he goes. 04/14/22 he is feeling increasingly winded recently. Still same pain in L chest. He has fluid aspiriated from the R chest. cytology negative. - Physical Exam ECOG PS: 0 General : patient is alert and oriented to person place and time, no acute distress. Neck: no JVD or thyromegaly. Lymph: no cervical, supraclavicular, axillary adenopathy. Heart: regular rate and rhythm no murmurs rubs or gallops. Chest pain is not reproducible. Abdomen: soft nontender nondistended, no hepatosplenomegaly. Lungs: cta bl, no wheezes, rales, rhonchi Extremities: no clubbing cyanosis. . - Time with Patient Coordination of Care & Counseling Time: Greater than 50% of time spent with patient was for coordination of care (as documented) and [id number] counseling of patient and/or family. [facility] - Medical History Medical History: Medical History (Last Reviewed 04/10/22 @ 09:54 by Helga Hammer RN) Anemia Anxiety COPD (chronic obstructive pulmonary disease) Depression Emphysema lung H/O peptic ulcer Hypertension Insomnia Neuropathy of right hand Secondary to lacerations years ago. NSTEMI (non-ST elevated myocardial infarction) On home oxygen therapy 4 Pancreatitis Port-A-Cath in place Small cell lung cancer s/p chemo & radiation. undergoing Imunnotherapy TOS (thoracic outlet syndrome) - Surgical History Surgical History: Surgical History (Last Reviewed 04/10/22 @ 09:54 by Helga Hammer RN) H/O vasectomy H/O wrist surgery Right side, 2005 Hx of hernia repair - Family History Family History: Family History (Last Reviewed 07/25/20 @ 13:25 by Brad Lockett PA-C) Mother Colon cancer Father Prostate cancer Other Diabetes mellitus, type 2 Hypertension - Social History Smoking Status: Former smoker Tobacco Type: cigarettes Substance Use Type: None Substance Abuse Comment: social Additional Data - Additional Objective Data Height/Weight: Height 6 ft Weight 70.3 kg BSA for Today's Weight 1.92 Vital Signs: 04/14/22 11:23 Temperature 98.3 F Pulse Rate [Right Brachial] 95 H Respiratory Rate 20 Blood Pressure [Right Arm] 130/93 02 Sat by Pulse Oximetry 100 Oxygen Delivery Method Room Air Distress Screening: RN Distress Screening Start: 11/18/19 12:21 Freq: Status: Complete Protocol: Document 11/18/19 12:56 AA (Rec: 11/18/19 12:58 AA --01) Distress Screening Distress Score: 10 Worst distress/worry Emotional Concerns Feeling uncertain about the future Distress Screening Total 10 Distress score of 4 or more discussed Yes with patient? RN Distress Screening Start: 11/24/19 08:55 Freq: Q30D Status: Active Protocol: Document 03/01/22 15:44 KB (Rec: 03/01/22 15:45 KB [id number]) Distress Screening Distress score of 4 or more discussed Yes with patient? Distress screening follow up: Has has recent family deaths lately. Spoke with patient, denies needs/assistance. - Lab Results Diagram of Most Recent CBC and CMP 04/10/22 08:30 04/10/22 08:30 Labs - Last 7 Days 04/10/22 08:30: Carcinoembryonic Ag 10.5 H 04/10/22 08:30: PHA Creatinine Clear 89.21, Sodium 131 L, Potassium 4.0, Chloride 98, Carbon Dioxide 19.7 L, Anion Gap 17.3 H, BUN 7 L, Creatinine 0.92, Est GFR ( Amer) > 60, Est GFR (Non-Af Amer) > 60, Glucose 73, Calcium 8.5, Total Bilirubin 0.7, AST 19, ALT 14, Alkaline Phosphatase 128 H, Total Protein 6.5, Albumin 3.4, Globulin 3.1, Albumin/Globulin Ratio 1.1, TSH 3rd Generation 2.57 04/10/22 08:30: Corrected WBC 6.3, Uncorrected WBC Count 6.3, RBC 4.75, Hgb 15.5, Hct 46.1, MCV 97.2, MCH 32.6, MCHC 33.6, RDW 14.6, Plt Count 239, MPV 7.4, Neut % (Auto) 71.4, Lymph % (Auto) 16.2, [place] % (Auto) 8.6, Eos % (Auto) 2.9, Baso % (Auto) 0.9, Neut # (Auto) 4.5, Lymph # (Auto) 1.0, [place] # (Auto) 0.5, Eos# (Auto) 0.2, Baso # (Auto) 0.1, Nucleated RBC % (auto) 0.1 - Home Medications and Allergies Allergies/Adverse Reactions: Allergies lisinopril Allergy (Verified 04/10/22 09:54) Swelling of Lip/Tongue/Throat sertraline [From Zoloft] Allergy (Verified 04/10/22 09:54) Swelling of Lip/Tongue/Throat Home Medications: Home Medications amlodipine 5 mg tablet 5 mg PO DAILY 09/01/20 [History Confirmed 04/14/22] quetiapine 100 mg tablet 100 mg PO QAM 04/05/21 [History Confirmed 04/14/22] aspirin 81 mg tablet,delayed release 81 mg PO DAILY 09/09/21 [History Confirmed 04/14/22] fluticasone 250 mcg-salmeterol 50 mcg/dose blistr powdr for inhalation (Advair Diskus) 1 inh inhalation BID 09/09/21 [History Confirmed 04/14/22] melatonin 3 mg tablet 3 mg PO HS PRN Insomnia 04/10/22 [History Confirmed 04/14/22] quetiapine 100 mg tablet 200 mg PO QHS 04/10/22 [History Confirmed 04/14/22] Dictated By: Estela Varma II, DO DD/ 1149 Signed By: <Electronically signed by Estela Varma II, DO> 04/14/22 1202 [facility] Work Phone: 1(864) 882-879710-17-2022 Progress note Author Estela Varma [facility] February 27, 2022 2:56pm Note Date/Time February 27, 2022 2 :51pm [facility] at [address] [address] Hem/Onc Follow Up Note - OP Signed Patient: Kirill Echols MR#: [id number] : 1965 Acct:[id number] Age/Sex: 56 / M Type: REG RCR Copies to: MD Rylan Vega MD~ Date of Service: 02/27/2022 Time of Service: 14:50 - Assessment & Plan (1) Small cell lung cancer Plan: Limited stage small cell lung cancer, status post concurrent chemoradiation withcarboplatin/etoposide, CR after 6 cycles of carboplatin, etoposide and atezolizumab. He did not complete a year of maintenance atezolizumab, stopped for patient preference. Was tolerating well with some diarrhea Concerning adenopathy is relatively small on imaging in August 2021. Follow-up PET/CT in August 2021 shows no evidence of active malignancy. chest pain, chronic but worse recently. He has been communicating with Dr. Andrea and has cardiac work-up ensuing. (2) Chest pain Follow Up Instructions: f/u in about [address] chest abd pelvis with contrast. cbc, cmp, cea tsh prior to f/u. - History of Present Illness Chief Complaint: Patient is here for a 6 month follow up with imaging for review. No concerns voiced. HPI: 54-year-old -Mongolian gentleman history of smoking 40 pack years and moderate alcohol use had complaints of chest pain for last year and a half and has been seen by his physicians in the past. Recently, his chest pain got much worse and a CT scan of his chest showed paratracheal and hilar lymphadenopathy. He also had a PET CT scan which confirmed a hypermetabolic spiculated mass in the right apical region as well as right hilar and paratracheal lymphadenopathy. There was also involvement of the supra and subclavicular region on the right suggestive of metastatic lymphadenopathy. 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 He received cycle 1 carboplatin and etoposide for small cell neuroendocrine lungcancer on November 24, 2019 He was started on chemotherapy carbo etoposide and atezolizumab and finished his6 cycle of chemotherapy March 08, 2020. About 50% dose reduction under direction of Dr. Ash. Continued atezolizumab through Jun 2020. In Mar 2021. CT brain, chest abdomen and pelvis are negative for recurrence. 08/22/[address] imaging from 08/18/21 notes COMPARISON: 04/01/2021. Increasing subcarinal and predominantly right hilar soft tissue prominence suggesting disease recurrence. There is a new small right-sided pleural effusion. Emphysematous changes are noted with linear scarring or atelectasis, as above. No acute intra-abdominal pathology or evidence of new intra-abdominal metastaticdisease. My own personal review of these images, not overwhelming for recurrence. He lives alone in [place]. His children live in [place]. His left him 8 months ago and he is very upset. He has been feeling increasing short of breath and fatigue. Also notes a brick sitting on his chest sensation. He sleeps sitting up with his feet on the table. He notes a sharp pain recurring, previously this had got mostly better. Not eating for the last few months. He notes depression for the last two years is pretty severe. 09/05/[address] Andrea. had a pet/ct on 09/02 notes FINDINGS: No hypermetabolic activity suspicious for malignancy is identified in the neck, chest, abdomen, or pelvis. Specifically, no abnormal uptake is seen in the subcarinal or right hilar regions. Laryngeal activity is presumably physiologic. There is physiologic activity in the heart and urinary tract. Otherwise, there is an Ijxaez-f-Vdkj on the left. The lungs demonstrate emphysematous changes. There is mild dependent subpleural atelectasis on the right. There are very small pericardial and right pleural effusions. There are calcifications in the head of the pancreas consistent with chronic pancreatitis. The wall of the urinary bladder appears mildly thickened, however, this finding is likely related to underdistention. IMPRESSION: No hypermetabolic activity suspicious for malignancy. His pain in chest persists. He describes it as a chest pain heaviness/numbness. like a tip of a needle that pokes just to the left of her sternum. It limits his quality of life. He has not had a stress test in a while. He has upcoming workup for his heart through Dr. Andrea soon. He is considering moving back down to [facility] where he is from. 02/27/22 he didnt f/u after his cts in december. ct c/a/p from 01/03/22 1. Increasing right-sided pleural effusion since the prior study. Metastatic effusion cannot be excluded. 2. Stable 9 mm indeterminate lesion involving the left lobe of the liver. No new liver lesions. Attention on follow-up is recommended. he still gets the pain in his chest when he becomes active. ALthough today he describes as a pin at the end of a needle is red hot in mid lower back, he states where they did the radiation. He admits it is dramatically improved frompreviously. He does note he is more short of breath on exertion. He quit smoking 2 years ago. - Physical Exam ECOG PS: 0 General : patient is alert and oriented to person place and time, no acute distress. Neck: no JVD or thyromegaly. Lymph: no cervical, supraclavicular, axillary adenopathy. Heart: regular rate and rhythm no murmurs rubs or gallops. Chest pain is not reproducible. Abdomen: soft nontender nondistended, no hepatosplenomegaly. Lungs: cta bl, no wheezes, rales, rhonchi Extremities: no clubbing cyanosis. . - Time with Patient Coordination of Care & Counseling Time: Greater than 50% of time spent with patient was for coordination of care (as documented) and [id number]-[id number] counseling of patient and/or family. [facility] - Medical History Medical History: Medical History (Last Reviewed 08/04/20 @ 10:40 by Socorro Frias RN) Anemia Anxiety COPD (chronic obstructive pulmonary disease) Depression Emphysema lung H/O peptic ulcer Hypertension Insomnia Neuropathy of right hand Secondary to lacerations years ago. NSTEMI (non-ST elevated myocardial infarction) On home oxygen therapy 4 Pancreatitis Port-A-Cath in place Small cell lung cancer s/p chemo & radiation. undergoing Imunnotherapy TOS (thoracic outlet syndrome) - Surgical History Surgical History: Surgical History (Last Reviewed 08/04/20 @ 10:40 by Socorro Frias RN) H/O vasectomy H/O wrist surgery Right side, 2006 Hx of hernia repair - Family History Family History: Family History (Last Reviewed 07/25/20 @ 13:25 by Brad Lockett PA-C) Mother Colon cancer Father Prostate cancer Other Diabetes mellitus, type 2 Hypertension - Social History Smoking Status: Former smoker Tobacco Type: cigarettes Substance Use Type: None Substance Abuse Comment: script for marijuana Additional Data - Additional Objective Data Height/Weight: Height 6 ft Weight 70.352 kg BSA for Today's Weight 1.92 Vital Signs: 02/27/22 14:35 Temperature 97.7 F Pulse Rate [Right Brachial] 80 Respiratory Rate 20 Blood Pressure [Right Arm] 138/90 02 Sat by Pulse Oximetry 99 Oxygen Delivery Method Room Air Distress Screening: RN Distress Screening Start: 11/18/19 12:21 Freq: Status: Complete Protocol: Document 11/18/19 12:56 AA (Rec: 11/18/19 12:58 AA CC--01) Distress Screening Distress Score: 10 Worst distress/worry Emotional Concerns Feeling uncertain about the future Distress Screening Total 10 Distress score of 4 or more discussed Yes with patient? RN Distress Screening Start: 11/24/19 08:55 Freq: Q30D Status: Active Protocol: Document 09/14/21 14:56 KB (Rec: 09/14/21 14:59 KB [id number]) Distress Screening Distress score of 4 or more discussed Yes with patient? Distress screening follow up: Spoke with patient via phone. Patient is doing ok at this time. Recently had a heart cath which was negative. He is happpy that his scans are good. Dr. Perez is working on getting him into [facility]. - Lab Results Diagram of Most Recent CBC and CMP 09/02/21 07:35 01/03/22 10:13 - Home Medications and Allergies Allergies/Adverse Reactions: Allergies lisinopril Allergy (Verified 02/27/22 14:34) Swelling of Lip/Tongue/Throat sertraline [From Zoloft] Allergy (Verified 02/27/22 14:34) Swelling of Lip/Tongue/Throat Home Medications: Home Medications amlodipine 5 mg tablet 5 mg PO DAILY 09/01/20 [History Confirmed 02/27/22] quetiapine 100 mg tablet 100 mg PO QHS 04/05/21 [History Confirmed 02/27/22] aspirin 81 mg tablet,delayed release 81 mg PO DAILY 09/09/21 [History Confirmed 02/27/22] fluticasone 250 mcg-salmeterol 50 mcg/dose blistr powdr for inhalation (Advair Diskus) 1 inh inhalation BID 09/09/21 [History Confirmed 02/27/22] metoprolol tartrate 25 mg tablet 12.5 mg PO BID 09/09/21 [History Confirmed 02/27/22] Dictated By: Estela Varma II, DO DD/ 1450 Signed By: <Electronically signed by Estela Varma II, DO> 02/27/22 1456 [facility] Work Phone: 1(941) 800-630905-03-2022 Evaluation note* Encounter Date Diagnosis Assessment Notes Treatment Notes Treatment Clinical Notes September, Other chronic pain (ICD-10 - G89.29) Chronic pain originating in the lower ribs/chest S/P concurrent chemoradiation. During cancer treatment (2019) I prescribed opioids for pain control and oxycodone was continued with taper through July 2020, but no longer regularly prescribed as Kirill had 3 psychiatric admissions for suicidal ideation & depression. According to Dr. Duffy's note of January 2021, Kirill experienced significant reduction of pain after injection but he failed to follow-up with pain management physician and did not take or continue pregabalin initiated by Dr. Duffy. I recommended that he consider contacting Dr. Duffy's office to schedule re-evaluation and treatment. I do not recommend opioid medication due to his ongoing depression - I think risk outweighs limited benefit and neurologic with either gabapentin or pregabalin resumed and titrated if tolerated and effective, unless contraindicated with his depressive illness. September, Depression (ICD-10 - F32.9) Kirill admits to chronic feelings of depression and anxiety, concern about his cancer and ongoing psychosocial stressors. Previous suicidal ideation and psychiatric admissions. Does not seem to be following with psychiatry or counseling currently. His ongoing depression and progressive weight loss is concerning and I wonder how beneficial his use of MMJ is for appetite, anxiety or pain. September, Lung cancer (ICD-10 - C34.90) Limited stage SCLC S/P concurrent chemoradiation, did not complete recommended maintenance immunotherapy. Restaging PET/CT August 2021 shows no evidence of recurrent disease. September, Encounter for palliative care (ICD-10 - Z51.5) Assisting with symptom management, goals of care/advance care planning & additional support. I will contact PCP Dr. Andrea to discuss plan of care. [facility] Other 04-25-2022 Progress note Author Estela Varma [facility] September 05, 2021 6:32pm Note Date/Time September 05, 2021 12: 28pm [facility] at [address] [address] Hem/Onc Follow Up Note - OP Signed Patient: iKrill Echols MR#: [id number] : 1965 Acct:[id number] Age/Sex: 56 / M Type: REG RCR Copies to: MD Rylan Vega MD~ Date of Service: 09/05/2021 Time of Service: 12:27 - Assessment & Plan (1) Small cell lung cancer Plan: Limited stage small cell lung cancer, status post concurrent chemoradiation withcarboplatin/etoposide, CR after 6 cycles of carboplatin, etoposide and atezolizumab. He did not complete a year of maintenance atezolizumab, stopped for patient preference. Was tolerating well with some diarrhea Concerning adenopathy is relatively small on imaging in August 2021. Follow-up PET/CT in August 2021 shows no evidence of active malignancy. chest pain, chronic but worse recently. He has been communicating with Dr. Andera and has cardiac work-up ensuing. (2) Chest pain Follow Up Instructions: ct c/a/p\ with contrast in 3 months. f/u after, cbc, cmp, cea - History of Present Illness Chief Complaint: Patient is here for a 2 week follow up with labs and PET scan for review. He states that is appetite has been off and he has not been wanting to eat much. He also states that his chest has been hurting. No other concerns voiced at this time. HPI: 54-year-old -[place]ong[place] gentleman history of smoking 40 pack years and moderate alcohol use had complaints of chest pain for last year and a half and has been seen by his physicians in the past. Recently, his chest pain got much worse and a CT scan of his chest showed paratracheal and hilar lymphadenopathy. He also had a PET CT scan which confirmed a hypermetabolic spiculated mass in the right apical region as well as right hilar and paratracheal lymphadenopathy. There was also involvement of the supra and subclavicular region on the right suggestive of metastatic lymphadenopathy. 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 He received cycle 1 carboplatin and etoposide for small cell neuroendocrine lungcancer on November 24, 2019 He was started on chemotherapy carbo etoposide and atezolizumab and finished his6 cycle of chemotherapy March 08, 2020. About 50% dose reduction under direction of Dr. Ash. Continued atezolizumab through maybe jun 2020. In Mar 2021. CT brain, chest abdomen and pelvis are negative for recurrence. 08/22/[address] imaging from 08/18/21 notes COMPARISON: 04/01/2021. Increasing subcarinal and predominantly right hilar soft tissue prominence suggesting disease recurrence. There is a new small right-sided pleural effusion. Emphysematous changes are noted with linear scarring or atelectasis, as above. No acute intra-abdominal pathology or evidence of new intra-abdominal metastaticdisease. My own personal review of these images, not overwhelming for recurrence. He lives alone in [place]. His children live in [place]. His left him 8 months ago and he is very upset. He has been feeling increasing short of breath and fatigue. Also notes a brick sitting on his chest sensation. He sleeps sitting up with his feet on the table. He notes a sharp pain recurring, previously this had got mostly better. Not eating for the last few months. He notes depression for the last two years is pretty severe. 09/05/[address] Andrea. had a pet/ct on 09/02 notes FINDINGS: No hypermetabolic activity suspicious for malignancy is identified in the neck, chest, abdomen, or pelvis. Specifically, no abnormal uptake is seen in the subcarinal or right hilar regions. Laryngeal activity is presumably physiologic. There is physiologic activity in the heart and urinary tract. Otherwise, there is an Inxtfe-g-Msdd on the left. The lungs demonstrate emphysematous changes. There is mild dependent subpleural atelectasis on the right. There are very small pericardial and right pleural effusions. There are calcifications in the head of the pancreas consistent with chronic pancreatitis. The wall of the urinary bladder appears mildly thickened, however, this finding is likely related to underdistention. IMPRESSION: No hypermetabolic activity suspicious for malignancy. His pain in chest persists. He describes it as a chest pain heaviness/numbness. like a tip of a needle that pokes just to the left of her sternum. It limits his quality of life. He has not had a stress test in a while. He has upcoming workup for his heart through Dr. Emre hammond. He is considering moving back down to [facility] where he is from. - Physical Exam ECOG PS: 0 General : patient is alert and oriented to person place and time, no acute distress. Neck: no JVD or thyromegaly. Lymph: no cervical, supraclavicular, axillary adenopathy. Heart: regular rate and rhythm no murmurs rubs or gallops. Chest pain is not reproducible. Abdomen: soft nontender nondistended, no hepatosplenomegaly. Lungs: cta bl, no wheezes, rales, rhonchi Extremities: no clubbing cyanosis. . - Time with Patient Coordination of Care & Counseling Time: Greater than 50% of time spent with patient was for coordination of care (as documented) and [id number] counseling of patient and/or family. [facility] - Medical History Medical History: Medical History (Last Reviewed 08/04/20 @ 10:40 by Socorro Frias RN) Anemia Anxiety COPD (chronic obstructive pulmonary disease) Depression Emphysema lung H/O peptic ulcer Hypertension Insomnia Neuropathy of right hand Secondary to lacerations years ago. NSTEMI (non-ST elevated myocardial infarction) On home oxygen therapy 4 Pancreatitis Port-A-Cath in place Small cell lung cancer s/p chemo & radiation. undergoing Imunnotherapy TOS (thoracic outlet syndrome) - Surgical History Surgical History: Surgical History (Last Reviewed 08/04/20 @ 10:40 by Socorro Frias RN) H/O vasectomy H/O wrist surgery Right side, 2005 Hx of hernia repair - Family History Family History: Family History (Last Reviewed 07/25/20 @ 13:25 by Brad Lockett PA-C) Mother Colon cancer Father Prostate cancer Other Diabetes mellitus, type 2 Hypertension - Social History Smoking Status: Former smoker Tobacco Type: cigarettes Substance Use Type: None Substance Abuse Comment: script for marijuana Additional Data - Additional Objective Data Height/Weight: Height 6 ft Weight 72.665 kg BSA for Today's Weight 1.92 Vital Signs: 09/05/21 11:56 Temperature 97.8 F Pulse Rate [Right Brachial] 94 H Respiratory Rate 20 Blood Pressure [Right Arm] 133/88 02 Sat by Pulse Oximetry 99 Distress Screening: RN Distress Screening Start: 11/18/19 12:21 Freq: Status: Complete Protocol: Document 11/18/19 12:56 AA (Rec: 11/18/19 12:58 AA [id number]) Distress Screening Distress Score: 10 Worst distress/worry Emotional Concerns Feeling uncertain about the future Distress Screening Total 10 Distress score of 4 or more discussed Yes with patient? RN Distress Screening Start: 11/24/19 08:55 Freq: Q30D Status: Active Protocol: Document 02/02/21 13:22 KB (Rec: 02/02/21 13:23 KB [id number]) Distress Screening Distress score of 4 or more discussed Yes with patient? Distress screening follow up: Called to follow up with patient to see how he was doing/offer assistance. Patient states Everything is going well. Patient offered counseling but stated he was okay at this time. Encouraged to reach out for any needs or assistance. Patient appreciative of follow up call . - Lab Results Diagram of Most Recent CBC and CMP 09/02/21 07:35 09/02/21 07:35 Labs - Last 7 Days 09/02/21 07:35: Carcinoembryonic Ag 11.4 H 09/02/21 07:35: PHA Creatinine Clear 88.97, Sodium 133 L, Potassium 4.3, Chloride 100, Carbon Dioxide 23.9, BUN 7 L, Creatinine 0.96, Est GFR ( Amer) > 60, Est GFR (Non-Af Amer) > 60, Glucose 78, Calcium 9.0, Total Bilirubin0.6, AST 18, ALT 13, Alkaline Phosphatase 130 H, Total Protein 7.2, Albumin 3.8,Globulin 3.4, Albumin/Globulin Ratio 1.1 09/02/21 07:35: Corrected WBC 5.0, Uncorrected WBC Count 5.0, RBC 4.48, Hgb 14.6, Hct 42.4, MCV 94.8, MCH 32.6, MCHC 34.4, RDW 15.7 H, Plt Count 186, MPV 7.0, Neut % (Auto) 69.0, Lymph % (Auto) 18.2, [place] % (Auto) 7.9, Eos % (Auto) 4.2, Baso % (Auto) 0.7, Neut # (Auto) 3.5, Lymph # (Auto) 0.9 L, [place] # (Auto) 0.4, Eos # (Auto) 0.2, Baso # (Auto) 0.0, Nucleated RBC % (auto) 0.1 09/02/21 07:33: POC Glucose 82 - Home Medications and Allergies Allergies/Adverse Reactions: Allergies lisinopril Allergy (Verified 08/22/21 14:49) Swelling of Lip/Tongue/Throat sertraline [From Zoloft] Allergy (Verified 08/22/21 14:49) Swelling of Lip/Tongue/Throat Home Medications: Home Medications amlodipine 5 mg tablet 5 mg PO DAILY 09/01/20 [History Confirmed 09/05/21] nitroglycerin 0.3 mg sublingual tablet (Nitrostat) 0.3 mg SUBLINGUAL Q5-15M PRN #10 tab 04/05/21 [Rx Confirmed 09/05/21] quetiapine 100 mg tablet 100 mg PO QHS 04/05/21 [History Confirmed 09/05/21] oxycodone-acetaminophen 5 mg-325 mg tablet (Percocet) 1 tab PO Q6H PRN 7 Days #28 tab 08/24/21 [Rx Confirmed 09/05/21] Dictated By: Estela Varma II, DO DD/ 1227 Signed By: <Electronically signed by Estela Varma II, DO> 09/05/21 1832 [facility] Work Phone: [phone]) 713-500604-11-2022 Progress note Author Estela Varma [facility] August 22, 2021 3:19pm Note Date/Time August 22, 2021 2:5 3pm [facility] at [address] [address] Hem/Onc Follow Up Note - OP Signed Patient: Kirill Echols MR#: [id number] : 1965 Acct:[id number] Age/Sex: 56 / M Type: REG RCR Copies to: MD Rylan Vega MD~ Date of Service: 08/22/2021 Time of Service: 14:53 - Assessment & Plan (1) Small cell lung cancer Plan: Limited stage small cell lung cancer, status post concurrent chemoradiation withcarboplatin/etoposide, CR after 6 cycles of carboplatin, etoposide and atezolizumab. He did not complete a year of maintenance atezolizumab, stopped for patient preference. Was tolerating well with some diarrhea Concerning adenopathy is relatively small on imaging in August 2021. I will get a PET/CT to try to see if this looks neoplastic. If recurrence, we would consider for repeating carbo etoposide atezolizumab. chest pain, chronic but worse recently. Will offer him cardiology referral as his scan does not show a high burden of adenopathy that would suggest a source of his pain at this time. nontheless i will write him for some percocet (2) Chest pain Follow Up Instructions: give percocet. sent to cardiology. PET/ct prior to f/u in 2 wks cbc, cmp, cea prior to f/u. - History of Present Illness Chief Complaint: Patient is here today for 8 week follow up visit to go over CT Scans and labwork. He has been having shortness of breath HPI: 54-year-old -[place] gentleman history of smoking 40 pack years and moderate alcohol use had complaints of chest pain for last year and a half and has been seen by his physicians in the past. Recently, his chest pain got much worse and a CT scan of his chest showed paratracheal and hilar lymphadenopathy. He also had a PET CT scan which confirmed a hypermetabolic spiculated mass in the right apical region as well as right hilar and paratracheal lymphadenopathy. There was also involvement of the supra and subclavicular region on the right suggestive of metastatic lymphadenopathy. 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 He received cycle 1 carboplatin and etoposide for small cell neuroendocrine lungcancer on November 24, 2019 He was started on chemotherapy carbo etoposide and atezolizumab and finished his6 cycle of chemotherapy March 08, 2020. About 50% dose reduction under direction of Dr. Ash. Continued atezolizumab through maybe jun 2020. In Mar 2021. CT brain, chest abdomen and pelvis are negative for recurrence. 08/22/[address] imaging from 08/18/21 notes COMPARISON: 04/01/2021. Increasing subcarinal and predominantly right hilar soft tissue prominence suggesting disease recurrence. There is a new small right-sided pleural effusion. Emphysematous changes are noted with linear scarring or atelectasis, as above. No acute intra-abdominal pathology or evidence of new intra-abdominal metastaticdisease. My own personal review of these images, not overwhelming for recurrence. He lives alone in [place]. His children live in [place]. His left him 8 months ago and he is very upset. He has been feeling increasing short of breath and fatigue. Also notes a brick sitting on his chest sensation. He sleeps sitting up with his feet on the table. He notes a sharp pain recurring, previously this had got mostly better. Not eating for the last few months. He notes depression for the last two years is pretty severe. - Physical Exam ECOG PS: 0 General : patient is alert and oriented to person place and time, no acute distress. Neck: no JVD or thyromegaly. Lymph: no cervical, supraclavicular, axillary adenopathy. Heart: regular rate and rhythm no murmurs rubs or gallops. Abdomen: soft nontender nondistended, no hepatosplenomegaly. Lungs: cta bl, no wheezes, rales, rhonchi Extremities: no clubbing cyanosis. . - Time with Patient Coordination of Care & Counseling Time: Greater than 50% of time spent with patient was for coordination of care (as documented) and [id number] counseling of patient and/or family. [facility] - Medical History Medical History: Medical History (Last Reviewed 08/04/20 @ 10:40 by Socorro Frias RN) Anemia Anxiety COPD (chronic obstructive pulmonary disease) Depression Emphysema lung H/O peptic ulcer Hypertension Insomnia Neuropathy of right hand Secondary to lacerations years ago. NSTEMI (non-ST elevated myocardial infarction) On home oxygen therapy 4 Pancreatitis Port-A-Cath in place Small cell lung cancer s/p chemo & radiation. undergoing Imunnotherapy TOS (thoracic outlet syndrome) - Surgical History Surgical History: Surgical History (Last Reviewed 08/04/20 @ 10:40 by Socorro Frias RN) H/O vasectomy H/O wrist surgery Right side, 2006 Hx of hernia repair - Family History Family History: Family History (Last Reviewed 07/25/20 @ 13:25 by Brad Lockett PA-C) Mother Colon cancer Father Prostate cancer Other Diabetes mellitus, type 2 Hypertension - Social History Smoking Status: Never smoker Tobacco Type: cigarettes Substance Use Type: None Substance Abuse Comment: script for marijuana Additional Data - Additional Objective Data Height/Weight: Height 6 ft Weight 73.936 kg BSA for Today's Weight 1.92 Distress Screening: RN Distress Screening Start: 11/18/19 12:21 Freq: Status: Complete Protocol: Document 11/18/19 12:56 AA (Rec: 11/18/19 12:58 AA [id number]) Distress Screening Distress Score: 10 Worst distress/worry Emotional Concerns Feeling uncertain about the future Distress Screening Total 10 Distress score of 4 or more discussed Yes with patient? RN Distress Screening Start: 11/24/19 08:55 Freq: Q30D Status: Active Protocol: Document 02/02/21 13:22 KB (Rec: 02/02/21 13:23 KB [id number]) Distress Screening Distress score of 4 or more discussed Yes with patient? Distress screening follow up: Called to follow up with patient to see how he was doing/offer assistance. Patient states Everything is going well. Patient offered counseling but stated he was okay at this time. Encouraged to reach out for any needs or assistance. Patient appreciative of follow up call . - Lab Results Diagram of Most Recent CBC and CMP 08/18/21 14:30 08/18/21 14:30 Labs - Last 7 Days 08/18/21 14:30: PHA Creatinine Clear 109.19, Sodium 127 L, Potassium 4.0, Chloride 97, Carbon Dioxide 19.1 L, BUN 3 L, Creatinine 0.79, Est GFR ( Amer) > 60, Est GFR (Non-Af Amer) > 60, Glucose 73, Calcium 8.6, Total Bilirubin0.6, AST 18, ALT 16, Alkaline Phosphatase 145 H, Total Protein 6.5, Albumin 3.5,Globulin 3.0, Albumin/Globulin Ratio 1.2 08/18/21 14:30: Corrected WBC 4.8, Uncorrected WBC Count 4.8, RBC 4.52, Hgb 14.7, Hct 42.8, MCV 94.6, MCH 32.4, MCHC 34.3, RDW 15.3 H, Plt Count 164, MPV 7.1, Neut % (Auto) 62.5, Lymph % (Auto) 20.1, [place] % (Auto) 11.9, Eos % (Auto) 4.8, Baso % (Auto) 0.7, Neut # (Auto) 3.0, Lymph # (Auto) 1.0, [place] # (Auto) 0.6, Eos # (Auto) 0.2, Baso # (Auto) 0.0, Nucleated RBC % (auto) 0.1 - Home Medications and Allergies Allergies/Adverse Reactions: Allergies lisinopril Allergy (Verified 08/22/21 14:49) Swelling of Lip/Tongue/Throat sertraline [From Zoloft] Allergy (Verified 08/22/21 14:49) Swelling of Lip/Tongue/Throat Home Medications: Home Medications amlodipine 5 mg tablet 5 mg PO DAILY 09/01/20 [History Confirmed 08/22/21] nitroglycerin 0.3 mg sublingual tablet (Nitrostat) 0.3 mg SUBLINGUAL Q5-15M PRN #10 tab 04/05/21 [Rx Confirmed 08/22/21] quetiapine 100 mg tablet 100 mg PO QHS 04/05/21 [History Confirmed 08/22/21] Dictated By: Estela Varma II, DO DD/ 1453 Signed By: <Electronically signed by Estela Varma II, DO> 08/22/21 1519 [facility] Work Phone: [phone]) 291-361111-23-2021 Progress note Author George Ash [facility] April 05, 2021 12:34pm Note Date/Time April 05, 2021 12:28pm [facility] at [address] [address] Hem/Onc Follow Up Note - OP Signed Patient: Kirill Echols MR#: [id number] : 1965 Acct:[id number] Age/Sex: 55 / M Type: REG RCR Copies to: MD Rylan Vega MD~ Subjective Date/Time of Service: Date of Service: 04/05/2021 Time of Service: 12:27 Chief Complaint: Patient is here today for 8 week follow up visit to go over CT Scans and labwork. He has been having shortness of breath HPI: Kirill presents in follow-up today April 05, 2021. CT brain, chest abdomen and pelvis are negative for recurrence. He still has his pain in the chest. It feels like someone is sitting on it. Itradiates down his arm at times. It comes on with exertion. He avoids stairs because of it. He has seen cardiology and was evaluated in [place] including a stress test. Nothing ever came of it and all the results and work-up of been negative. Talking with him today, it is certainly consistent with angina. I will give him a trial of nitroglycerin. He will call me with results. He has been tried on Neurontin and other therapies for this chest pain. his history of cancer was more on the right side than anything. The patient has a history of small cell neuroendocrine lung cancer having had chemotherapy last year when he presented November 18, 2019. A work-up for chest painshowed paratracheal and hilar lymphadenopathy. PET scan October 21, 2019 is reviewed below: Amorphous region of hypermetabolic soft tissue in the RIGHT paratracheal region and RIGHT hilar region concerning for malignancy. Foci of hypermetabolism in the superior RIGHT paratracheal region and also in the supra and subclavicular region on the RIGHT which suggest metastatic adenopathy. Hypermetabolic spiculated lymph node in the RIGHT apical region. This is also concerning for malignancy. He was referred to Dr. Duval and referred for needle biopsy of supraclavicular lymph node which confirmed small cell neuroendocrine lung cancer. He was started on chemotherapy and finished his 6 cycle of chemotherapy March 08, 2020. His final cycle, cycle 6, of chemotherapy will be March 08. ROS Details: All systems reviewed & no additional complaints except as documented Subjective/ROS - Narrative: Residual and chronic left-sided chest complaints. It sometimes goes down his arm. It feels like someone is sitting on his chest. It comes on with exertion. He gets it at night. He usually rests and it goes away; no nausea vomiting or diaphoresis. No orthostasis or dizziness or palpitations. [facility] - Medical History Medical History: Medical History (Last Reviewed 08/04/20 @ 10:40 by Socorro Frias RN) Anemia Anxiety COPD (chronic obstructive pulmonary disease) Depression Emphysema lung H/O peptic ulcer Hypertension Insomnia Neuropathy of right hand Secondary to lacerations years ago. NSTEMI (non-ST elevated myocardial infarction) On home oxygen therapy 4 Pancreatitis Port-A-Cath in place Small cell lung cancer s/p chemo & radiation. undergoing Imunnotherapy TOS (thoracic outlet syndrome) - Surgical History Surgical History: Surgical History (Last Reviewed 08/04/20 @ 10:40 by Socorro Frias RN) H/O vasectomy H/O wrist surgery Right side, 2005 Hx of hernia repair - Family History Family History: Family History (Last Reviewed 07/25/20 @ 13:25 by Brad Lockett PA-C) Mother Colon cancer Father Prostate cancer Other Diabetes mellitus, type 2 Hypertension - Social History Smoking Status: Never smoker Tobacco Type: cigarettes Substance Use Type: None Substance Abuse Comment: script for marijuana Home Medications & Allergies Allergies lisinopril Allergy (Verified 04/05/21 10:46) Swelling of Lip/Tongue/Throat sertraline [From Zoloft] Allergy (Verified 04/05/21 10:46) Swelling of Lip/Tongue/Throat Home Medications amlodipine 5 mg tablet 5 mg PO DAILY 09/01/20 [History Confirmed 04/05/21] nitroglycerin 0.3 mg sublingual tablet (Nitrostat) 0.3 mg SUBLINGUAL Q5-15M PRN #10 tab 04/05/21 [Rx] quetiapine 100 mg tablet 100 mg PO QHS 04/05/21 [History Confirmed 04/05/21] Objective - Height/Weight Height/Weight: Height 6 ft Weight 73.936 kg BSA for Today's Weight 1.92 - Vital Signs Vital Signs: 04/05/21 10:48 Temperature 98.0 F Pulse Rate [Right Brachial] 91 H Respiratory Rate 20 Blood Pressure [Right Arm] 122/86 02 Sat by Pulse Oximetry 99 - Pain Anterior Chest Pain Intensity: 6 Shoulder Pain Intensity: 3 Right Neck Pain Intensity: 3 - Distress Screening Distress Screen Results: RN Distress Screening Start: 11/18/19 12:21 Freq: Status: Complete Protocol: Document 11/18/19 12:56 AA (Rec: 11/18/19 12:58 AA [id number]) Distress Screening Distress Score: 10 Worst distress/worry Emotional Concerns Feeling uncertain about the future Distress Screening Total 10 Distress score of 4 or more discussed Yes with patient? RN Distress Screening Start: 11/24/19 08:55 Freq: Q30D Status: Active Protocol: Document 02/02/21 13:22 KB (Rec: 02/02/21 13:23 KB [id number]) Distress Screening Distress score of 4 or more discussed Yes with patient? Distress screening follow up: Called to follow up with patient to see how he was doing/offer assistance. Patient states Everything is going well. Patient offered counseling but stated he was okay at this time. Encouraged to reach out for any needs or assistance. Patient appreciative of follow up call . Physical Exam Narrative: Unchanged. - ECOG Performance Status ECOG Score: 0 Results - Labs Labs: Diagram of Most Recent CBC and CMP 04/01/21 09:50 04/01/21 09:32 Labs - Last 7 Days 04/01/21 09:50: Corrected WBC 8.2, Uncorrected WBC Count 8.2, RBC 4.88, Hgb 15.4, Hct 45.7, MCV 93.6, MCH 31.5, MCHC 33.7, RDW 15.7 H, Plt Count 195, MPV 6.8, Neut % (Auto) 74.7, Lymph % (Auto) 11.7, [place] % (Auto) 10.3, Eos % (Auto) 2.5, Baso % (Auto) 0.8, Neut # (Auto) 6.1, Lymph # (Auto) 1.0, [place] # (Auto) 0.9H, Eos # (Auto) 0.2, Baso # (Auto) 0.1, Nucleated RBC % (auto) 0.0 04/01/21 09:32: PHA Creatinine Clear 98.81, Sodium 125 L, Potassium 4.3, Chloride 96, Carbon Dioxide 18.3 L, BUN 4 L, Creatinine 0.84, Est GFR ( Amer) > 60, Est GFR (Non-Af Amer) > 60, Glucose 90, Calcium 8.9, Total Bilirubin1.0, AST 21, ALT 16, Alkaline Phosphatase 136 H, Total Protein 6.9, Albumin 3.7,Globulin 3.2, Albumin/Globulin Ratio 1.2 Assessment and Plan (1) Small cell lung cancer No evidence of recurrence CT the brain, chest abdomen pelvis negative for recurrence. At this time is in remission and there is no evidence of recurrent small cell lung cancer. I will repeat staging in 6 months (2) Chest pain Patient has had extensive work-up in the past in [place] including stress test. He has seen cardiology. His pain is reminiscent or consistent with angina. As before he has been tested for this. I will give him a trial of nitroglycerin 0.4 mg and he will call me with results. - Time with Patient Time Spent with Patient (Follow Up Visit): 25 minutes Coordination of Care & Counseling Time: Greater than 50% of time spent with patient was for coordination of care (as documented) and [id number] counseling of patient and/or family. Dictated By: George Ash MD DD/ 1227 Signed By: <Electronically signed by MD George Ash> 04/05/21 1234 [facility] Work Phone: 1([phone]) 276-382309-28-2021 Progress note Author George Ash [facility] February 08, 2021 11:42am Note Date/Time February 08, 2021 11:41am [facility] [place] [address] Hem/Onc Follow Up Note - OP Signed Patient: Kirill Echols MR#: [id number] : 1965 Acct:[id number] Age/Sex: 55 / M Type: REG RCR Copies to: MD Rylan Vega MD~ Subjective Date/Time of Service: Date of Service: 02/08/2021 Time of Service: 11:40 Chief Complaint: Patient is here today for 1 week follow up visit for chest pain. He states it has improved some with pain med, but basically the same. He has been having weight loss and loss of appetite HPI: Kirill presents in follow-up today. I do not know that the Percocet has made any change as he has not been taking it much. He still has the pain. His x-raywas negative. He is seeing Dr. Duffy and had nerve block without really any long- term success. At this time I will restage him in 6-day weeks and see him back in follow-up. I do not know the etiology of his pain but do not suspect recurrent malignancy at this time. He saw me last week in follow-up. He was having a lot of pain in the left side of the chest. He has been extensively worked up for this is all pretty much negative. His chest x-ray is negative. He has seen Dr. Andrea and referred to Dr. Duffyfor pain in the left median side of the chest. He states that like a bunch of Novocain in the area . He cannot sleep at night. He has to sit propped up. Hehad a nerve block which did help him a little bit but it pretty much came back. It is not consistent with angina. He has been tried on Neurontin and other therapies. His history of cancer was more on the right side than anything. He is tearful and crying and asking for relief. The patient has a history of small cell neuroendocrine lung cancer having had chemotherapy last year. He is tearful today and having a lot of pain. He cannot sleep at night. I gavehim Percocet No. 30 but I really do not think he is taking much. He states he does not like to take pills. He has been tried on Neurontin and other therapies and even had a nerve block. If he is better I would likely consider either PET/CT or additional imaging to assess for any recurrence. This is not typical for angina. He did not respond to nerve block. I do not think this is postherpetic neuralgia. All in all, I cannot find any presence or evidence of recurrence of malignancy ROS Details: All systems reviewed & no additional complaints except as documented [facility] - Medical History Medical History: Medical History (Last Reviewed 08/04/20 @ 10:40 by Socorro Frias RN) Anemia Anxiety COPD (chronic obstructive pulmonary disease) Depression Emphysema lung H/O peptic ulcer Hypertension Insomnia Neuropathy of right hand Secondary to lacerations years ago. NSTEMI (non-ST elevated myocardial infarction) On home oxygen therapy 4 Pancreatitis Port-A-Cath in place Small cell lung cancer s/p chemo & radiation. undergoing Imunnotherapy TOS (thoracic outlet syndrome) - Surgical History Surgical History: Surgical History (Last Reviewed 08/04/20 @ 10:40 by Socorro Frias RN) H/O vasectomy H/O wrist surgery Right side, 2005 Hx of hernia repair - Family History Family History: Family History (Last Reviewed 07/25/20 @ 13:25 by Brad Lockett PA-C) Mother Colon cancer Father Prostate cancer Other Diabetes mellitus, type 2 Hypertension - Social History Smoking Status: Never smoker Tobacco Type: cigarettes Substance Use Type: None Substance Abuse Comment: script for marijuana Home Medications & Allergies Allergies lisinopril Allergy (Verified 02/08/21 11:07) Swelling of Lip/Tongue/Throat sertraline [From Zoloft] Allergy (Verified 02/08/21 11:07) Swelling of Lip/Tongue/Throat Home Medications amlodipine 5 mg tablet 5 mg PO DAILY 09/01/20 [History Confirmed 02/08/21] oxycodone-acetaminophen 5 mg-325 mg tablet (Percocet) 1 tab PO Q4H PRN 7 Days #30 tab 02/01/21 [Rx Confirmed 02/08/21] Objective - Height/Weight Height/Weight: Height 6 ft Weight 70.307 kg BSA for Today's Weight 1.92 - Vital Signs Vital Signs: 02/08/21 11:07 Temperature 98.0 F Pulse Rate [Right Brachial] 71 Respiratory Rate 20 Blood Pressure [Right Arm] 125/85 02 Sat by Pulse Oximetry 95 - Pain Anterior Chest Pain Intensity: 6 Shoulder Pain Intensity: 3 Right Neck Pain Intensity: 3 - Emotional Needs Assessment Emotional Needs Assessment: Emotional Needs Identified? Yes: he has depression and anxiety no intervention needed Distress Screening Total 3 Physical Exam Narrative: Unchanged. - ECOG Performance Status ECOG Score: 0 Results - Labs Labs: Diagram of Most Recent CBC and CMP 01/31/21 10:25 01/31/21 10:25 Assessment and Plan (1) Small cell lung cancer At this time we will restage with CT brain, chest abdomen pelvis and see him in 2 months (2) Chest pain Of unknown etiology. No evidence of recurrence at this time - Time with Patient Time Spent with Patient (Follow Up Visit): 25 minutes Coordination of Care & Counseling Time: Greater than 50% of time spent with patient was for coordination of care (as documented) and [id number] counseling of patient and/or family. Dictated By: George Ash MD DD/ 39 Signed By: <Electronically signed by MD George Ash> 02/08/21 1142 [facility] Work Phone: 1(123) 952-485109-21-2021 Progress note Author George Ash [facility] February 01, 2021 11:20am Note Date/Time February 01, 2021 11:19am [facility] [place] [id number] Hem/Onc Follow Up Note - OP Signed Patient: Kirill Echols MR#: [id number] : 1965 Acct:[id number] Age/Sex: 55 / M Type: REG RCR Copies to: MD Rylan Vega MD~ Subjective Date/Time of Service: Date of Service: 02/01/2021 Time of Service: 11:16 Chief Complaint: Patient is here today d/t pain and numbness left side of chest radiates to back. He has been to [facility] and [facility], He went to his family doctor and he referred him to pain management and gave him injection and helped.He states it is a big mass of numbness HPI: Kirill presents in follow-up today. His chest x-ray is negative. He has seen Dr. Andrea and referred to Dr. Duffy for pain in the left median side of the chest. He states that like a bunch of Novocain in the area . He cannot sleep at night. He has to sit propped up. He had a nerve block which did help him a little bit but it pretty much came back. It is not consistent with angina. He has been tried on Neurontin and other therapies. His history of cancer was moreon the right side than anything. He is tearful and crying and asking for relief. The patient has a history of small cell neuroendocrine lung cancer having had chemotherapy last year. He is tearful today and having a lot of pain. He cannot sleep at night. My plan will be Percocet No. 30. I will see him back in 1 week to see whether we make any impact with this. He has been tried on Neurontin and other therapies and even had a nerve block. If he is better I would likely consider either PET/CT or additional imaging to assess for any recurrence. This is not typical for angina. He did not respond to nerve block. I do not think this is postherpetic neuralgia. This has to be in someway related to his cancer my opinion. ROS Details: All systems reviewed & no additional complaints except as documented [facility] - Medical History Medical History: Medical History (Last Reviewed 08/04/20 @ 10:40 by Socorro Frias RN) Anemia Anxiety COPD (chronic obstructive pulmonary disease) Depression Emphysema lung H/O peptic ulcer Hypertension Insomnia Neuropathy of right hand Secondary to lacerations years ago. NSTEMI (non-ST elevated myocardial infarction) On home oxygen therapy 4 Pancreatitis Port-A-Cath in place Small cell lung cancer s/p chemo & radiation. undergoing Imunnotherapy TOS (thoracic outlet syndrome) - Surgical History Surgical History: Surgical History (Last Reviewed 08/04/20 @ 10:40 by Socorro Frias RN) H/O vasectomy H/O wrist surgery Right side, 2005 Hx of hernia repair - Family History Family History: Family History (Last Reviewed 07/25/20 @ 13:25 by Brad Lockett PA-C) Mother Colon cancer Father Prostate cancer Other Diabetes mellitus, type 2 Hypertension - Social History Smoking Status: Never smoker Tobacco Type: cigarettes Substance Use Type: None Substance Abuse Comment: script for marijuana Home Medications & Allergies Allergies lisinopril Allergy (Verified 11/06/20 13:11) Swelling of Lip/Tongue/Throat sertraline [From Zoloft] Allergy (Verified 11/06/20 13:11) Swelling of Lip/Tongue/Throat Home Medications amlodipine 5 mg tablet 5 mg PO DAILY 09/01/20 [History Confirmed 09/09/20] oxycodone-acetaminophen 5 mg-325 mg tablet (Percocet) 1 tab PO Q4H PRN 7 Days #30 tab 02/01/21 [Rx] Objective - Height/Weight Height/Weight: Height 6 ft Weight 71.668 kg BSA for Today's Weight 1.92 - Vital Signs Vital Signs: 02/01/21 10:53 Temperature 98.0 F Pulse Rate [Right Brachial] 104 H Respiratory Rate 20 Blood Pressure [Right Arm] 115/77 02 Sat by Pulse Oximetry 96 - Pain Anterior Chest Pain Intensity: 7 Shoulder Pain Intensity: 3 Right Neck Pain Intensity: 3 - Emotional Needs Assessment Emotional Needs Assessment: Emotional Needs Identified? Yes: anxiety and depression Distress Screening Total 10 Physical Exam Narrative: Pain is right over the cardiac area. It is nonradiating. Physical exam essentially noncontributory. - ECOG Performance Status ECOG Score: 0 Results - Labs Labs: Diagram of Most Recent CBC and CMP 01/31/21 10:25 01/31/21 10:25 Labs - Last 7 Days 01/31/21 10:25: PHA Creatinine Clear 88.55, Sodium 131 L, Potassium 4.4, Chloride 98, Carbon Dioxide 23.2, BUN 6 L, Creatinine 0.99, Est GFR ( Amer) > 60, Est GFR (Non-Af Amer) > 60, Glucose 84, Calcium 8.8, Total Bilirubin0.5, AST 17, ALT 19, Alkaline Phosphatase 101 H, Total Protein 6.8, Albumin 4.0,Globulin 2.8, Albumin/Globulin Ratio 1.4, TSH 3rd Generation 1.65 01/31/21 10:25: Corrected WBC 6.6, Uncorrected WBC Count 6.6, RBC 5.35, Hgb 16.5, Hct 49.1, MCV 91.8, MCH 30.9, MCHC 33.7, RDW 17.8 H, Plt Count 165, MPV 6.9, Neut % (Auto) 76.8, Lymph % (Auto) 13.5, [place] % (Auto) 7.5, Eos % (Auto) 1.4, Baso % (Auto) 0.8, Neut # (Auto) 5.1, Lymph # (Auto) 0.9 L, [place] # (Auto) 0.5, Eos # (Auto) 0.1, Baso # (Auto) 0.1, Nucleated RBC % (auto) 0.1 Assessment and Plan (1) Small cell lung cancer (2) Chest pain Of unknown etiology. He has failed nerve blocks, Neurontin, and other therapies. I do not know what this is but suspect it may be in someway related to his malignancy. Will prescribe Percocet No. 30 and see him back next week tosee whether there is been any improvement. At that time we will likely considerreferring him for PET/CT or additional imaging. - Time with Patient Time Spent with Patient (Follow Up Visit): 25 minutes Coordination of Care & Counseling Time: Greater than 50% of time spent with patient was for coordination of care (as documented) and [id number] counseling of patient and/or family. Dictated By: George Ash MD DD/ [id number] Signed By: <Electronically signed by MD George Ash> 02/01/21 1120 [facility] Work Phone: 1(192) 362-253407-27-2021 Progress note Author George Ash [facility] December 07, 2020 11:02am Note Date/Time December 07, 2020 10:4 0am [facility] [place] [id number] Hem/Onc Follow Up Note - OP Signed Patient: Kirill Echols MR#: [id number] : 1965 Acct:[id number] Age/Sex: 55 / M Type: REG RCR Copies to: MD Rylan Vega MD~ Subjective Date/Time of Service: Date of Service: 12/07/2020 Time of Service: 10:39 Chief Complaint: Patient is here for a 3 month follow up for lung cancer, with labs and scans 12/03/2020 for review. Patient was just in the ER yesterday for chest pain. States he has been short of breath and has had low energy. Patient also reports that his appetite has been pretty low the last few days. No other concerns voiced. HPI: This is a 55-year-old gentleman diagnosed with small cell lung cancer 1 year ago. He was treated with carboplatin and etoposide and atezolizumab and then a short course of adjuvant atezolizumab but then subsequently stopped due to side effects. He is presenting today December 07, 2020 in follow-up. His CT the brain and CT chest are negative. Lab work is also negative. He is also having a substantial amount of left-sided chest pain and was in the ER a few times with this with a negative work-up. He will be getting a bone scan by his primary care doctor Dr. Andrea. His history begins in November 2019 when he presented with small cell neuroendocrinelung cancer. PET scan at presentation is reviewed below: FINDINGS: There are foci of hypermetabolism identified in the RIGHT subclavicular region and in the RIGHT paratracheal region superiorly and potentially with RIGHT supraclavicular region. These may be underwriting service representative of metastatic lymph nodes. There is focus of hypermetabolism in the RIGHT lung apical region. There is a corresponding spiculated lung nodule. This measures up to 12 mm. There is amorphous region of soft tissue density in the RIGHT paratracheal region and also in the RIGHT hilar region. There is associated hypermetabolism in this region. The maximal SUV value is 9. No abnormal chest wall hypermetabolic uptake identified. Normal accumulation of liver and renal collecting system identified. Normal physiologic uptake of the bowel noted. No abnormal hypermetabolic uptake seen. No abdominal mass or adenopathy identified. No soft tissue wall mass or fluid collection identified. No bony lesion seen. No abnormal hypermetabolic bone lesion seen. No abnormal hypermetabolic soft tissue uptake seen. Small region of hypermetabolism in the anal region identified. This is of uncertain clinical significance. PET/PET tumor init tx strat sb-mt IMPRESSION: Amorphous region of hypermetabolic soft tissue in the RIGHT paratracheal region and RIGHT hilar region concerning for malignancy. Foci of hypermetabolism in the superior RIGHT paratracheal region and also in the supra and subclavicular region on the RIGHT which suggest metastatic adenopathy. Hypermetabolic spiculated lymph node in the RIGHT apical region. This is also concerning for malignancy. The patient was started on carboplatin, etoposide and atezolizumab with his first cycle November 24, 2019. His last treatment, treatment #6 was March 08, 2020. He was placed on maintenance atezolizumab but stopped his therapy prematurely in June 2020. The patient had refused prophylactic cranial radiation. 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 NSTEMI (non-ST elevated myocardial infarction) On home oxygen therapy 4 Pancreatitis Port-A-Cath in place Small cell lung cancer s/p chemo & radiation. undergoing Imunnotherapy TOS (thoracic outlet syndrome) - Surgical History Surgical History: Surgical History (Last Reviewed 08/04/20 @ 10:40 by Socorro Frias RN) H/O vasectomy H/O wrist surgery Right side, 2006 Hx of hernia repair - Family History Family History: Family History (Last Reviewed 07/25/20 @ 13:25 by Brad Lockett PA-C) Mother Colon cancer Father Prostate cancer Other Diabetes mellitus, type 2 Hypertension - Social History Smoking Status: Never smoker Tobacco Type: cigarettes Substance Use Type: None Substance Abuse Comment: script for marijuana Home Medications & Allergies Allergies lisinopril Allergy (Verified 11/06/20 13:11) Swelling of Lip/Tongue/Throat sertraline [From Zoloft] Allergy (Verified 11/06/20 13:11) Swelling of Lip/Tongue/Throat Home Medications lorazepam 1 mg tablet (Ativan) 1 mg PO Q6H 03/02/20 [History Confirmed 09/09/20] gabapentin 100 mg capsule 200 mg PO TID 30 Days #180 cap 08/03/20 [Rx Confirmed 09/09/20] oxycodone 15 mg tablet (Roxicodone) 20 mg PO Q8H 08/17/20 [History Confirmed 09/09/20] amlodipine 5 mg tablet 5 mg PO DAILY 09/01/20 [History Confirmed 09/09/20] buspirone 15 mg tablet 20 mg PO TID 09/01/20 [History Confirmed 09/09/20] docusate sodium 100 mg capsule (Colace) 100 mg PO DAILY 09/01/20 [History Confirmed 09/09/20] melatonin 3 mg tablet 3 mg PO HS 09/01/20 [History Confirmed 09/09/20] mirtazapine 45 mg tablet 45 mg PO QHS 09/01/20 [History Confirmed 09/09/20] oxcarbazepine 600 mg tablet (Trileptal) 600 mg PO BID 09/01/20 [History Confirmed 09/09/20] prednisone 50 mg tablet 60 mg PO DAILY 09/01/20 [History Confirmed 09/09/20] quetiapine 100 mg tablet (Seroquel) 100 mg PO QHS 09/01/20 [History Confirmed 09/09/20] hydrocodone 5 mg-acetaminophen 325 mg tablet 1 tab PO TID PRN 3 Days #9 tab 11/06/20 [Rx] hydrocodone 5 mg-acetaminophen 325 mg tablet 1 tab PO Q4-6H PRN 3 Days #10 tab 12/03/20 [Rx] Objective - Height/Weight Height/Weight: Height 6 ft Weight 74.253 kg BSA for Today's Weight 1.92 - Vital Signs Vital Signs: 12/07/20 10:18 Temperature 98 F Pulse Rate [Right Brachial] 85 Respiratory Rate 20 Blood Pressure [Right Arm] 114/79 02 Sat by Pulse Oximetry 100 - Pain Anterior Chest Pain Intensity: 8 Shoulder Pain Intensity: 3 Right Neck Pain Intensity: 3 - Emotional Needs Assessment Emotional Needs Assessment: Emotional Needs Identified? Yes Distress Screening Total 3 Results - Labs Labs: Diagram of Most Recent CBC and CMP 12/03/20 08:57 12/03/20 08:57 Labs - Last 7 Days 12/03/20 08:57: PHA Creatinine Clear 94.66, Sodium 132 L, Potassium 4.1, Chloride 102, Carbon Dioxide 20.7 L, BUN 7 L, Creatinine 0.96, Est GFR ( Amer) > 60, Est GFR (Non-Af Amer) > 60, Glucose 77, Calcium 9.0, Total Bilirubin0.6, AST 18, ALT 12, Alkaline Phosphatase 122 H, Total Protein 6.9, Albumin 3.6,Globulin 3.3, Albumin/Globulin Ratio 1.1, TSH 3rd Generation 2.91 12/03/20 08:57: Corrected WBC 6.8, Uncorrected WBC Count 6.8, RBC 4.70, Hgb 13.8, Hct 42.0, MCV 89.3, MCH 29.3, MCHC 32.8, RDW 17.4 H, Plt Count 237, MPV 6.1 L, Neut % (Auto) 71.8, Lymph % (Auto) 12.7, [place] % (Auto) 10.8, Eos % (Auto)3.9, Baso % (Auto) 0.8, Neut # (Auto) 4.8, Lymph # (Auto) 0.9 L, [place] # (Auto) 0.7, Eos # (Auto) 0.3, Baso # (Auto) 0.1, Nucleated RBC % (auto) 0.1 Assessment and Plan (1) Small cell lung cancer At this time in remission. My plan will be to see me back in 3 months for repeat blood work and chest x-ray. As to the etiology of his chest pain I do not know what this is from. He will be getting a bone scan from Dr. Andrea. Hehas been in the ER multiple times according him. - Time with Patient Time Spent with Patient (Follow Up Visit): 25 minutes Coordination of Care & Counseling Time: Greater than 50% of time spent with patient was for coordination of care (as documented) and [id number] counseling of patient and/or family. Dictated By: George Ash MD DD/ [id number] Signed By: <Electronically signed by MD George Ash> 12/07/20 1102 [facility] Work Phone: [phone]) [phone] Progress note Author Santhosh Chan [facility] September 09, 2020 11:30am Note Date/Time September 09, 2020 11: 21am [facility] [place] [address] Hem/Onc Follow Up Note - OP Signed Patient: Kirill Echols MR#: [id number] : 1965 Acct:[id number] Age/Sex: 55 / M Type: REG RCR Copies to: MD Rylan Vega MD~ Subjective Date/Time of Service: Date of Service: 09/09/2020 Time of Service: 11:18 Chief Complaint: Patient is here for a 1 week follow up with chest CT for review. HPI: Mr. Echols presents to discus CT scan results and plan, he has no specific complaints today. 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 NSTEMI (non-ST elevated myocardial infarction) On home oxygen therapy 4 Pancreatitis Port-A-Cath in place Small cell lung cancer s/p chemo & radiation. undergoing Imunnotherapy TOS (thoracic outlet syndrome) - Surgical History Surgical History: Surgical History (Last Reviewed 08/04/20 @ 10:40 by Socorro rFias RN) H/O vasectomy H/O wrist surgery Right side, 2006 Hx of hernia repair - Family History Family History: Family History (Last Reviewed 07/25/20 @ 13:25 by Brad Lockett PA-C) Mother Colon cancer Father Prostate cancer Other Diabetes mellitus, type 2 Hypertension - Social History Smoking Status: Former smoker Substance Use Type: Marijuana Substance Abuse Comment: medical marijuana Home Medications & Allergies Allergies lisinopril Allergy (Verified 09/02/20 11:20) Swelling of Lip/Tongue/Throat sertraline [From Zoloft] Allergy (Verified 09/02/20 11:20) Swelling of Lip/Tongue/Throat Home Medications lorazepam [Ativan] 1 mg PO Q6H 03/02/20 [History Confirmed 09/09/20] gabapentin 200 mg PO TID 30 Days #180 cap 08/03/20 [Rx Confirmed 09/09/20] oxycodone [Roxicodone] 20 mg PO Q8H 08/17/20 [History Confirmed 09/09/20] amlodipine 5 mg PO DAILY 09/01/20 [History Confirmed 09/09/20] buspirone 20 mg PO TID 09/01/20 [History Confirmed 09/09/20] docusate sodium [Colace] 100 mg PO DAILY 09/01/20 [History Confirmed 09/09/20] melatonin 3 mg PO HS 09/01/20 [History Confirmed 09/09/20] mirtazapine [Remeron] 45 mg PO QHS 09/01/20 [History Confirmed 09/09/20] oxcarbazepine [Trileptal] 600 mg PO BID 09/01/20 [History Confirmed 09/09/20] prednisone 60 mg PO DAILY 09/01/20 [History Confirmed 09/09/20] quetiapine [Seroquel] 100 mg PO QHS 09/01/20 [History Confirmed 09/09/20] Objective - Height/Weight Height/Weight: Height 6 ft Weight 76.975 kg BSA for Today's Weight 1.92 - Vital Signs Vital Signs: 09/09/20 11:06 Temperature 97.6 F Pulse Rate [Right Brachial] 97 H Respiratory Rate 20 Blood Pressure [Right Arm] 134/92 02 Sat by Pulse Oximetry 98 - Pain Anterior Chest Pain Intensity: 7 Shoulder Pain Intensity: 3 Right Neck Pain Intensity: 3 - Emotional Needs Assessment Emotional Needs Assessment: Emotional Needs Identified? Yes Distress Screening Total 3 Physical Exam Narrative: GENERAL APPEARANCE: In no acute distress. HEENT: No jaundice or lymphadenopathy. LUNGS: Breathing normally on room air. EXTREMITIES: No edema. NEUROLOGIC: Grossly intact. - ECOG Performance Status ECOG Score: 1 Results - Labs Labs: Diagram of Most Recent CBC and CMP 08/16/20 14:35 08/16/20 14:35 Assessment and Plan (1) Small cell lung cancer Limited stage small cell lung cancer, status post concurrent chemoradiation withcarboplatin/etoposide, CR after 6 cycles of carboplatin, etoposide and atezolizumab. -He does have some small residual lymphadenopathy which is stable. He was on maintenance atezolizumab 11/24/19-06/26/20. Due to his severe depression and suicidal ideation which led to hospitalization in 07/2020, it was discontinued. -He has refused prophylaxis cranial radiation, she had 08/04/2020 no evidence of intracranial metastasis. He has chest pain/discomfort, CT chest with IV contrast 08/2020 showed no evidence of cancer recurrence. -Patient is very happy about it, he will return in 3 month with CBC, CMP, TSH, and CT chest with IV contrast as well as CT head w/wo contrast for surveillance. (2) Diarrhea Imodium as needed. -He is instructed to call if get worse, in that case, we will get him Lomotil. (3) Cancer-related pain (4) Anxiety - Time with Patient Time Spent with Patient (Follow Up Visit): 25 minutes Coordination of Care & Counseling Time: Greater than 50% of time spent with patient was for coordination of care (as documented) and [id number] counseling of patient and/or family. Dictated By: Santhosh Chan MD DD/ [id number] Signed By: <Electronically signed by Santhosh Chan MD> 09/09/20 1130 [facility] Work Phone: 1(225) 364-847704-22-2021 Progress note Author Santhosh Chan [facility] September 02, 2020 11:55am Note Date/Time September 02, 2020 11: 53am [facility] at [address] [address] Hem/Onc Follow Up Note - OP Signed Patient: Kirill Echols MR#: [id number] : 1965 Acct:[id number] Age/Sex: 55 / M Type: REG RCR Copies to: MD Rylan Vega MD~ Subjective Date/Time of Service: Date of Service: 09/02/2020 Time of Service: 11:51 Chief Complaint: Patient is here for a 2 month follow up, no concerns voiced. HPI: Patient is a patient of Dr Ash. He is here today for a follow up for small cell lung cancer. He presented for delayed follow-up due to his recent hospitalization for severe depression and suicidal ideation. He feels better now. He reports chest discomfort/pain, he wonders if he is cancer return. He denies abdominal pain, bone pain.he has stable headaches, no vision or focal deficit. 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 NSTEMI (non-ST elevated myocardial infarction) On home oxygen therapy 4 Pancreatitis Port-A-Cath in place Small cell lung cancer s/p chemo & radiation. undergoing Imunnotherapy TOS (thoracic outlet syndrome) - Surgical History Surgical History: Surgical History (Last Reviewed 08/04/20 @ 10:40 by Socorro Frias RN) H/O vasectomy H/O wrist surgery Right side, 2005 Hx of hernia repair - Family History Family History: Family History (Last Reviewed 07/25/20 @ 13:25 by Brad Lockett PA-C) Mother Colon cancer Father Prostate cancer Other Diabetes mellitus, type 2 Hypertension - Social History Smoking Status: Former smoker Substance Use Type: Marijuana Substance Abuse Comment: medical marijuana Home Medications & Allergies Allergies lisinopril Allergy (Verified 09/02/20 11:20) Swelling of Lip/Tongue/Throat sertraline [From Zoloft] Allergy (Verified 09/02/20 11:20) Swelling of Lip/Tongue/Throat Home Medications lorazepam [Ativan] 1 mg PO Q6H 03/02/20 [History Confirmed 09/02/20] gabapentin 200 mg PO TID 30 Days #180 cap 08/03/20 [Rx Confirmed 09/02/20] oxycodone [Roxicodone] 20 mg PO Q8H 08/17/20 [History Confirmed 09/02/20] amlodipine 5 mg PO DAILY 09/01/20 [History Confirmed 09/02/20] buspirone 20 mg PO TID 09/01/20 [History Confirmed 09/02/20] docusate sodium [Colace] 100 mg PO DAILY 09/01/20 [History Confirmed 09/02/20] melatonin 3 mg PO HS 09/01/20 [History Confirmed 09/02/20] mirtazapine [Remeron] 45 mg PO QHS 09/01/20 [History Confirmed 09/02/20] oxcarbazepine [Trileptal] 600 mg PO BID 09/01/20 [History Confirmed 09/02/20] prednisone 60 mg PO DAILY 09/01/20 [History Confirmed 09/02/20] quetiapine [Seroquel] 100 mg PO QHS 09/01/20 [History Confirmed 09/02/20] Objective - Height/Weight Height/Weight: Height 6 ft Weight 77.111 kg BSA for Today's Weight 1.92 - Vital Signs Vital Signs: 09/02/20 11:21 Temperature 97.3 F L Pulse Rate [Right Brachial] 106 H Respiratory Rate 20 Blood Pressure [Right Arm] 113/79 02 Sat by Pulse Oximetry 99 - Pain Anterior Chest Pain Intensity: 8 Shoulder Pain Intensity: 3 Right Neck Pain Intensity: 3 - Emotional Needs Assessment Emotional Needs Assessment: Emotional Needs Identified? No Physical Exam Narrative: GENERAL APPEARANCE: In no acute distress. HEENT: No jaundice or lymphadenopathy. LUNGS: Breathing normally on room air. CTAB. Heart: s1, s2, RRR. ABD: soft, NT, ND EXTREMITIES: No edema. NEUROLOGIC: Grossly intact. - ECOG Performance Status ECOG Score: 1 Results - Labs Labs: Diagram of Most Recent CBC and CMP 08/16/20 14:35 08/16/20 14:35 Assessment and Plan (1) Small cell lung cancer Limited stage small cell lung cancer, status post concurrent chemoradiation withcarboplatin/etoposide, CR after 6 cycles of carboplatin, etoposide and atezolizumab. -He does have some small residual lymphadenopathy which is stable. He was on maintenance atezolizumab, however due to his severe depression and suicidal ideation. -He has refused prophylaxis cranial radiation, she had 08/04/2020 no evidence of intracranial metastasis. He has chest pain/discomfort, he is concerned about cancer recurrence. We will proceed with a CT chest with IV contrast to follow-up his mediastinal lymphadenopathy, I will see him back in a week to discuss scan results and plan. (2) Diarrhea Grade 1, for 4 days, I advised Imodium as needed. -He is instructed to call if get worse, in that case, we will get him Lomotil. (3) Cancer-related pain (4) Anxiety - Time with Patient Time Spent with Patient (Follow Up Visit): 25 minutes Coordination of Care & Counseling Time: Greater than 50% of time spent with patient was for coordination of care (as documented) and inyl-ux-rier counseling of patient and/or family. Dictated By: Santhosh Chan MD DD/ 50 Signed By: <Electronically signed by Santhosh Chan MD> 09/02/20 [id number] [facility] Work Phone: [phone] 175-892102-23-2021 Progress note Author Santhosh Chan [facility] July 06, 2020 1:19pm Note Date/Time July 06, 2020 1:17pm [facility] [place] [address] Hem/Onc Follow Up Note - OP Signed Patient: Kirill Echols MR#: [id number] : 1965 Acct:[id number] Age/Sex: 55 / M Type: REG RCR Copies to: MD Rylan Vega MD~ Subjective Date/Time of Service: Date of Service: 07/06/2020 Time of Service: 13:16 Chief Complaint: Overall stable HPI: Patient is a patient of Dr Ash. He is here today for a follow up for small cell lung cancer. He did not get brain MRI done yet. He reports diarrhea, watery, 1-2 times a day. He has not used Imodium yet, otherwise no change. 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 NSTEMI (non-ST elevated myocardial infarction) On home oxygen therapy Pancreatitis Port-A-Cath in place Small cell lung cancer s/p chemo & radiation. undergoing Imunnotherapy TOS (thoracic outlet syndrome) - Surgical History Surgical History: Surgical History (Last Reviewed 06/06/20 @ 14:24 by Brad Lockett PA-C) H/O vasectomy H/O wrist surgery Right side, 2005 - Family History Family History: Family History (Last Reviewed 06/06/20 @ 14:24 by Brad Lockett PA-C) Mother Colon cancer Father Prostate cancer Other Diabetes mellitus, type 2 Hypertension - Social History Smoking Status: Former smoker Tobacco Type: cigarettes Substance Use Type: Alcohol Substance Abuse Comment: ETOH OCCASIONALLY Social History Comments: drinks a six pack per day Home Medications & Allergies Allergies lisinopril Allergy (Verified 07/06/20 12:58) Swelling of Lip/Tongue/Throat sertraline [From Zoloft] Allergy (Verified 07/06/20 12:58) Swelling of Lip/Tongue/Throat Home Medications amlodipine [Norvasc] 5 mg PO QAM 07/30/19 [History Confirmed 06/15/20] buspirone 10 mg PO TID@0900,1400,2200 12/01/19 [History Confirmed 06/15/20] celecoxib [Celebrex] 100 mg PO BID@0900,2100 12/01/19 [History Confirmed 06/15/20] escitalopram oxalate [Lexapro] 10 mg PO QAM 12/01/19 [History Confirmed 06/15/20] quetiapine [Seroquel] 150 mg PO QHS 12/01/19 [History Confirmed 06/15/20] Magic Mouth Wash 10 ml PO Q6HR PRN 12/30/19 [History Confirmed 06/15/20] hydromorphone [Dilaudid] 5 mg PO Q6H PRN 7 Days #140 ml 01/14/20 [Rx Confirmed 06/15/20] sucralfate [Carafate] 10 ml PO QACHS 01/21/20 [History Confirmed 06/15/20] oxycodone [Roxicodone] 10 mg PO Q6H 02/26/20 [History Confirmed 06/15/20] albuterol sulfate 2 inh INHALATION QID PRN #8 gm 02/28/20 [Rx Confirmed 06/15/20] lorazepam [Ativan] 1 mg PO TID PRN 03/02/20 [History Confirmed 06/15/20] aspirin [Aspir-81] 81 mg PO DAILY 05/03/20 [History Confirmed 06/15/20] food supplemt, lactose-reduced [Ensure] 1 ea PO BID 05/03/20 [History Confirmed 06/15/20] ondansetron 4 mg PO Q6-8H PRN #10 tab 05/16/20 [Rx Confirmed 06/15/20] melatonin 3 mg PO HS PRN 06/06/20 [History Confirmed 06/15/20] promethazine 25 mg PO TID PRN 06/06/20 [History Confirmed 06/15/20] oxycodone 10 mg PO Q6H PRN 14 Days #56 tab 06/15/20 [Rx] Objective - Height/Weight Height/Weight: Height 6 ft Weight 72.575 kg BSA for Today's Weight 1.92 - Vital Signs Vital Signs: 07/06/20 12:11 Temperature 97.9 F Pulse Rate [Right Brachial] 99 H Respiratory Rate 18 Blood Pressure [Right Arm] 114/80 02 Sat by Pulse Oximetry 98 - Pain Anterior Chest Pain Intensity: 6 Shoulder Pain Intensity: 3 Right Neck Pain Intensity: 3 - Emotional Needs Assessment Emotional Needs Assessment: Emotional Needs Identified? Yes Support System Spouse,Family Expressed Feelings Depression Physical Exam Narrative: GENERAL APPEARANCE: In no acute distress. HEENT: No jaundice or lymphadenopathy. LUNGS: Breathing normally on room air. EXTREMITIES: No edema. NEUROLOGIC: Grossly intact. - ECOG Performance Status ECOG Score: 1 Results - Labs Labs: Diagram of Most Recent CBC and CMP 07/05/20 13:20 07/05/20 13:20 Labs - Last 7 Days 07/05/20 13:20: PHA Creatinine Clear 82.49, Sodium 135 L, Potassium 4.0, Chloride 98, Carbon Dioxide 26.3, BUN 8 L, Creatinine 1.09, Est GFR ( Amer) > 60, Est GFR (Non-Af Amer) > 60, Glucose 102 H, Calcium 9.1, Total Bilirubin 0.9, Direct Bilirubin 0.1, Indirect Bilirubin 0.8, AST 49 H, ALT 36, Alkaline Phosphatase 93 H, Total Protein 6.8, Albumin 3.9, Globulin 2.9, Albumin/Globulin Ratio 1.3, Free T4 0.57 L, TSH 3rd Generation 2.17 07/05/20 13:20: Corrected WBC 4.4, Uncorrected WBC Count 4.4 L, RBC 3.81 L, Hgb 12.2 L, Hct 35.8 L, MCV 93.9, MCH 31.9, MCHC 34.0, RDW 14.0, Plt Count 198, MPV 6.8, Neut % (Auto) 65.3, Lymph % (Auto) 17.0, [place] % (Auto) 13.4, Eos % (Auto) 3.8, Baso % (Auto) 0.5, Neut # (Auto) 2.9, Lymph # (Auto) 0.7 L, [place] # (Auto) 0.6, Eos # (Auto) 0.2, Baso # (Auto) 0.0, Nucleated RBC % (auto) 0.1 Assessment and Plan (1) Small cell lung cancer Limited stage small cell lung cancer, status post concurrent chemoradiation withcarboplatin/etoposide, CR after 6 cycles of carboplatin, etoposide and atezolizumab. -He does have some small residual lymphadenopathy which is stable. He is on maintenance atezolizumab, no evidence of disease progression. -He has refused prophylaxis cranial radiation. He asked about duration of maintenance atezolizumab, we discussed during last visit that it is reasonable to discontinue since the mediastinal lymphadenopathy has been stable. He would like to continue for now. He complains about memory loss, which likely due to chemo brain. Jointly decided to see him in 3 weeks with restaging brain MRI. However, brain MRI not done yet. I will see him back in 3 weeks, hopefully he will get a brain MRI done at that point (2) Diarrhea Grade 1, for 4 days, I advised Imodium as needed. -He is instructed to call if get worse, in that case, we will get him Lomotil. (3) Cancer-related pain He is following palliative medicine, Marisabel Lincoln, who is in the process of transitioning her [facility]. (4) Anxiety - Time with Patient Time Spent with Patient (Follow Up Visit): 25 minutes, 35 minutes Coordination of Care & Counseling Time: Greater than 50% of time spent with patient was for coordination of care (as documented) and [id number] counseling of patient and/or family. Dictated By: Santhosh Chan MD DD/ 15 Signed By: <Electronically signed by Santhosh Chan MD> 07/06/20 [address] [facility] Work Phone: [phone] 738-686702-02-2021 Progress note Author Santhosh Chan [facility] June 15, 2020 4:23pm Note Date/Time June 15, 2020 3 :28pm [facility] [place] [address] Hem/Onc Follow Up Note - OP Signed Patient: Kirill Echols MR#: [id number] : 1965 Acct:[id number] Age/Sex: 55 / M Type: REG RCR Copies to: MD Rylan Vega MD~ Subjective Date/Time of Service: Date of Service: 06/15/2020 Time of Service: 15:28 Chief Complaint: Overall stable HPI: Patient is a patient of Dr Ash. He is here today for an 8 week follow up forsmall cell lung cancer. He would also like to know how much longer he will have to get treatment. He had 06/14/2020 for review today. He continues to have painin his cervical area, is tearful. His CT chest abdomen pelvis are reviewed and essentially show complete response. There is some mild residual lymph node enlargement on the left side, which is stable, otherwise negative. 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 NSTEMI (non-ST elevated myocardial infarction) On home oxygen therapy Pancreatitis Port-A-Cath in place Small cell lung cancer s/p chemo & radiation. undergoing Imunnotherapy TOS (thoracic outlet syndrome) - Surgical History Surgical History: Surgical History (Last Reviewed 06/06/20 @ 14:24 by Brad Lockett PA-C) H/O vasectomy H/O wrist surgery Right side, 2005 - Family History Family History: Family History (Last Reviewed 06/06/20 @ 14:24 by Brad Lockett PA-C) Mother Colon cancer Father Prostate cancer Other Diabetes mellitus, type 2 Hypertension - Social History Smoking Status: Former smoker Tobacco Type: cigarettes Substance Use Type: Alcohol Substance Abuse Comment: ETOH OCCASIONALLY Social History Comments: drinks a six pack per day Home Medications & Allergies Allergies lisinopril Allergy (Verified 06/14/20 09:53) Swelling of Lip/Tongue/Throat sertraline [From Zoloft] Allergy (Verified 06/14/20 09:53) Swelling of Lip/Tongue/Throat Home Medications amlodipine [Norvasc] 5 mg PO QAM 07/30/19 [History Confirmed 06/15/20] buspirone 10 mg PO TID@0900,1400,2200 12/01/19 [History Confirmed 06/15/20] celecoxib [Celebrex] 100 mg PO BID@0900,2100 12/01/19 [History Confirmed 06/15/20] escitalopram oxalate [Lexapro] 10 mg PO QAM 12/01/19 [History Confirmed 06/15/20] quetiapine [Seroquel] 150 mg PO QHS 12/01/19 [History Confirmed 06/15/20] Magic Mouth Wash 10 ml PO Q6HR PRN 12/30/19 [History Confirmed 06/15/20] hydromorphone [Dilaudid] 5 mg PO Q6H PRN 7 Days #140 ml 01/14/20 [Rx Confirmed 06/15/20] sucralfate [Carafate] 10 ml PO QACHS 01/21/20 [History Confirmed 06/15/20] oxycodone [Roxicodone] 10 mg PO Q6H 02/26/20 [History Confirmed 06/15/20] albuterol sulfate 2 inh INHALATION QID PRN #8 gm 02/28/20 [Rx Confirmed 06/15/20] lorazepam [Ativan] 1 mg PO TID PRN 03/02/20 [History Confirmed 06/15/20] aspirin [Aspir-81] 81 mg PO DAILY 05/03/20 [History Confirmed 06/15/20] food supplemt, lactose-reduced [Ensure] 1 ea PO BID 05/03/20 [History Confirmed 06/15/20] ondansetron 4 mg PO Q6-8H PRN #10 tab 05/16/20 [Rx Confirmed 06/15/20] melatonin 3 mg PO HS PRN 06/06/20 [History Confirmed 06/15/20] promethazine 25 mg PO TID PRN 06/06/20 [History Confirmed 06/15/20] oxycodone 10 mg PO Q6H PRN 14 Days #56 tab 06/15/20 [Rx] Objective - Height/Weight Height/Weight: Height 6 ft Weight 76.158 kg BSA for Today's Weight 1.96 - Vital Signs Vital Signs: 06/15/20 15:01 Temperature 97.2 F L Pulse Rate [Right Brachial] 83 Respiratory Rate 20 Blood Pressure [Right Arm] 101/70 02 Sat by Pulse Oximetry 97 - Pain Anterior Chest Pain Intensity: 5 Shoulder Pain Intensity: 3 Right Neck Pain Intensity: 3 - Emotional Needs Assessment Emotional Needs Assessment: Emotional Needs Identified? No Physical Exam Narrative: GENERAL APPEARANCE: In no acute distress. Anxious, tearful HEENT: No jaundice or lymphadenopathy. LUNGS: Clear to auscultation bilaterally, no rales, rhonchi, or crackles. CARDIOVASCULAR: S1 and S2, regular rate and rhythm, no murmurs, gallops, rubs. ABDOMEN: Soft, nontender, no hepatosplenomegaly. No mass palpated. EXTREMITIES: No edema. NEUROLOGIC: Grossly intact. - ECOG Performance Status ECOG Score: 1 Results - Labs Labs: Diagram of Most Recent CBC and CMP 06/14/20 09:02 06/14/20 09:02 Labs - Last 7 Days 06/14/20 09:02: PHA Creatinine Clear 107.94, Sodium 130 L, Potassium 3.4 L, Chloride 97, Carbon Dioxide 24.7, BUN 7 L, Creatinine 0.84, Est GFR ( Amer) > 60, Est GFR (Non-Af Amer) > 60, Glucose 87, Calcium 8.6, Total Bilirubin0.8, Direct Bilirubin 0.2, Indirect Bilirubin 0.6, AST 26, ALT 19, Alkaline Phosphatase 100 H, Total Protein 6.2, Albumin 3.8, Globulin 2.4, Albumin/Globulin Ratio 1.6, Free T4 0.51 L, TSH 3rd Generation 1.35 06/14/20 09:02: Corrected WBC 3.7 L, Uncorrected WBC Count 3.7 L, RBC 3.83 L, Hgb 12.2 L, Hct 36.4 L, MCV 95.0, MCH 31.8, MCHC 33.5, RDW 13.7, Plt Count 169, MPV 6.9, Neut % (Auto) 57.8, Lymph % (Auto) 19.4, [place] % (Auto) 16.6, Eos % (Auto) 5.5, Baso % (Auto) 0.7, Neut # (Auto) 2.1, Lymph # (Auto) 0.7 L, [place] # (Auto) 0.6, Eos # (Auto) 0.2, Baso # (Auto) 0.0, Nucleated RBC % (auto) 0.1 Assessment and Plan (1) Small cell lung cancer Limited stage small cell lung cancer, status post concurrent chemoradiation withcarboplatin/etoposide, CR after 6 cycles of carboplatin, etoposide and atezolizumab. -He does have some small residual lymphadenopathy which is stable. He is on maintenance atezolizumab, no evidence of disease progression. -He has refused prophylaxis cranial radiation. He asked about duration of maintenance atezolizumab, we discussed that it is reasonable to discontinue since the mediastinal lymphadenopathy has been stable. He would like to continue for now. He complains about memory loss, which likely due to chemo brain. Jointly decided to see him in 3 weeks with restaging brain MRI. (2) Cancer-related pain He is following palliative medicine, Marisabel Lincoln, who is in the process of transitioning her practice [facility]. -OARRS reviewed, no concern. Refill prescription of 2 weeks of oxycodone IR 10 mg (down from 15 mg)x56 provided today (taken 6-hour as needed). (3) Anxiety - Time with Patient Time Spent with Patient (Follow Up Visit): 35 minutes Coordination of Care & Counseling Time: Greater than 50% of time spent with patient was for coordination of care (as documented) and [id number] counseling of patient and/or family. Dictated By: Santhosh Chan MD DD/ 1528 Signed By: <Electronically signed by Santhosh Chan MD> 06/15/20 16[address] [facility] Work Phone: [phone] Progress note Author George Ash [facility] April 06, 2020 3:03pm Note Date/Time April 06, 2020 3:00pm [facility] [place] [address] Hem/Onc Follow Up Note - OP Signed Patient: Kirill Echols MR#: [id number] : 1965 Acct:[id number] Age/Sex: 54 / M Type: REG RCR Copies to: MD Rylan Vega MD~ Subjective Date/Time of Service: Date of Service: 04/06/2020 Time of Service: 14:59 Chief Complaint: Patient is here for follow up for review of restaging scans, patient is anxious about results. HPI: Kirill presents in follow-up today April 06, 2020. His CT chest abdomen pelvis are reviewed and essentially show complete response. There is some mild residual lymph node enlargement at the site of the primary but is otherwise negative. His insurance company denied his PET scan. Patient: Kirill Echols MR#: [id number] : 1965 Acct:[id number] Age/Sex: 54 / M ADM Date: 0 Loc: XT Room: Type: [facility] RCR Attending Dr: George Ash MD Ordering Provider: George Ash MD Date of Service: 03/23/20 CT/CT chest w con: restaging,C34.90 ([id number]) CT/CT abdomen pelvis w con: restaging,C34.90 Copies to: George Ash MD~ CT CHEST, ABDOMEN AND PELVIS WITH CONTRAST CLINICAL DATA: Restaging of right small cell lung cancer COMPARISON: CT chest 02/25/2020 and 09/29/2019. CT abdomen/pelvis 12/01/2019. Spiral images were obtained through the chest, abdomen and pelvis following oraland 96 mL Isovue 300. Images of the chest were reviewed using both narrow and wide window settings. This CT exam was performed using one or more following dose reduction techniques: Automated exposure control, adjustment of the mA and/or kV according to patient size, or use of iterative reconstruction technique. The heart is normal size. No pericardial effusion is present. No aortic aneurysm or dissection is seen. There is minor atherosclerotic plaque at the aortic arch and proximal great vessels. Patient has a left-sided Mqqlzk-[id number]-[id number] catheter. There is continued ill-defined soft tissue density in the right paratracheal region extending into the precarinal space. This is similar to therecent comparison, measuring approximately 2.3 x 1.3 cm at a comparable level. There are small, more defined AP window, subcarinal and right hilar lymph nodes,also similar. Minor bilateral gynecomastia is seen. There are mild degenerative changes at the mid thoracic spine. Airspace lucencies are visualized compatible with obstructive disease. There is mild stable scarring at the apices. There is dependent atelectasis at the lower lungs. There is linear scarring or atelectasis at the right middle lobe. No additional consolidation, pleural effusion or soft tissue nodules are noted. The liver, gallbladder, spleen, pancreas and adrenal glands are unremarkable. There are bilateral symmetric renal nephrograms with no hydronephrosis. There is a suspected small right renal cyst. The abdominal aorta is normal caliber and there is minor atherosclerotic plaque. No lymphadenopathy or ascites is noted. The small bowel loops are top normal in diameter and there are some thatcontain fluid. There is also fluid within the ascending colon and mild within the distal transverse and descending colon. The bony structures are intact. Images through the pelvis show some additional fluid containing small bowel loops that are within normal limits for caliber. A normal appendix is seen. There is mild distal colonic stool. There is air at the rectum. No diverticular disease is identified. The urinary bladder is not well-distended and the wall appears thickened. The prostate is within normal limits for size. There are few small inguinal and distal external iliac lymph nodes. There is a mildly patulous right inguinal ring containing fat. No free fluid is seen. CT/CT chest w con IMPRESSION: OBSTRUCTIVE LUNG DISEASE. MILD ATELECTASIS AND SCARRING. MILD RESIDUAL RIGHT PARATRACHEAL/PRECARINAL SOFT TISSUE DENSITY, SIMILAR TO THE MORE RECENT COMPARISON. THIS CORRELATES WITH THE SITE OF PATIENT'S MALIGNANCY ON THE ORIGINAL COMPARISON EXAM. SMALL RIGHT RENAL CYST. NONSPECIFIC FLUID CONTAINING BOWEL, POSSIBLY ILEUS. UNDER DISTENDED BLADDER WITH APPARENT WALL THICKENING. NO OTHER ACUTE FINDINGS. He has refused whole brain radiation therapy. He received his 6 cycle of chemotherapy March 08, 2020. This is a 54-year-old gentleman first seen by me November 18, 2019. His symptoms began in September when he presented with chest pain. CT of the chest showed paratracheal and hilar lymphadenopathy. A work-up with a PET scan showed the findings below: Patient: Kirill Echols MR#: [id number] : 1965 Acct:[id number] Age/Sex: 54 / M ADM Date: 0 Loc: Room: Type: [facility] Attending Dr: Varghese Duval MD Ordering Provider: Varghese Duval MD Date of Service: 10/31/19 PET/PET tumor init tx strat sb-mt: R91.1 R91.8 R59.1 Copies to: MD Rylan Vega MD Ward, Jeffrey S DO~ PET/CT FUSION IMAGING CLINICAL INFORMATION: Single pulmonary nodule. Abnormal lung findings. COMPARISON : CTA chest of 09/29/19 TECHNIQUE: Noncontrasted CT scan from the base of the skull to the upper thigh followed by PET imaging. Multiplanar PET/CT fusion images. The blood sugar is 109mg/dL. The F-18 FDG amount is 12.5mCi. FINDINGS: There are foci of hypermetabolism identified in the RIGHT subclavicular region and in the RIGHT paratracheal region superiorly and potentially with RIGHT supraclavicular region. These may be underwriting service representative of metastatic lymph nodes. There is focus of hypermetabolism in the RIGHT lung apical region. There is a corresponding spiculated lung nodule. This measures up to 12 mm. There is amorphous region of soft tissue density in the RIGHT paratracheal region and also in the RIGHT hilar region. There is associated hypermetabolism in this region. The maximal SUV value is 9. No abnormal chest wall hypermetabolic uptake identified. Normal accumulation of liver and renal collecting system identified. Normal physiologic uptake of the bowel noted. No abnormal hypermetabolic uptake seen. No abdominal mass or adenopathy identified. No soft tissue wall mass or fluid collection identified. No bony lesion seen. No abnormal hypermetabolic bone lesion seen. No abnormal hypermetabolic soft tissue uptake seen. Small region of hypermetabolism in the anal region identified. This is of uncertain clinical significance. PET/PET tumor init tx strat sb-mt IMPRESSION: Amorphous region of hypermetabolic soft tissue in the RIGHT paratracheal region and RIGHT hilar region concerning for malignancy. Foci of hypermetabolism in the superior RIGHT paratracheal region and also in the supra and subclavicular region on the RIGHT which suggest metastatic adenopathy. Hypermetabolic spiculated lymph node in the RIGHT apical region. This is also concerning for malignancy. Impression dictated by: Franklin Gomes M.D.10/31/2019 2:44 PM Dictation Location: [facility] The patient was seen by Dr. James and evaluated by Dr. Duval. 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 Port-A-Cath in place Small cell lung cancer - Surgical History Surgical History: Surgical History (Last Reviewed 02/26/20 @ 00:00 by Karen Low RN) H/O vasectomy H/O wrist surgery Right side, 2005 - Family History Family History: Family History (Last Reviewed 02/26/20 @ 00:00 by Karen Low RN) Mother Colon cancer Father Prostate cancer Other Diabetes mellitus, type 2 Hypertension - Social History Smoking Status: Former smoker Tobacco Type: cigarettes Substance Use Type: None Social History Comments: drinks a six pack per day Home Medications & Allergies Allergies sertraline [From Zoloft] Allergy (Verified 02/25/20 19:33) Swelling of Lip/Tongue/Throat Home Medications amlodipine [Norvasc] 5 mg PO QAM 07/30/19 [History Confirmed 04/06/20] melatonin 3 mg PO QHS 30 Days #30 tab 08/04/19 [Rx Confirmed 04/06/20] buspirone 10 mg PO TID@0900,1400,2200 12/01/19 [History Confirmed 04/06/20] celecoxib [Celebrex] 100 mg PO BID@0900,2100 12/01/19 [History Confirmed 04/06/20] escitalopram oxalate [Lexapro] 10 mg PO QAM 12/01/19 [History Confirmed 04/06/20] quetiapine [Seroquel] 150 mg PO QHS 12/01/19 [History Confirmed 04/06/20] sennosides-docusate sodium [Senexon-S] 1 tab PO BID PRN 12/01/19 [History Confirmed 04/06/20] cyclobenzaprine 5 mg PO Q8H PRN #30 tab 12/04/19 [Rx Confirmed 04/06/20] oxycodone-acetaminophen [Percocet] 1 tab PO Q4H PRN 14 Days #60 tab 12/04/19 [Rx Confirmed 04/06/20] Magic Mouth Wash 10 ml PO Q6HR PRN 12/30/19 [History Confirmed 04/06/20] furosemide [Lasix] 40 mg PO QAM #60 tab 12/30/19 [Rx Confirmed 04/06/20] hydromorphone [Dilaudid] 5 mg PO Q6H PRN 7 Days #140 ml 01/14/20 [Rx Confirmed 04/06/20] sucralfate [Carafate] 10 ml PO QACHS 01/21/20 [History Confirmed 04/06/20] oxycodone [Roxicodone] 15 mg PO Q4H 02/26/20 [History Confirmed 04/06/20] albuterol sulfate 2 inh INHALATION QID PRN #8 gm 02/28/20 [Rx Confirmed 04/06/20] aspirin 81 mg PO DAILY 03/02/20 [History Confirmed 04/06/20] lorazepam [Ativan] 1 mg PO TID 03/02/20 [History Confirmed 04/06/20] Objective - Height/Weight Height/Weight: Height 6 ft Weight 76.204 kg BSA for Today's Weight 1.99 - Vital Signs Vital Signs: 04/06/20 14:39 Temperature 97 F L Pulse Rate [Right Brachial] 92 H Respiratory Rate 20 Blood Pressure [Right Arm] 124/79 02 Sat by Pulse Oximetry 98 - Pain Anterior Chest Pain Intensity: 4 Shoulder Pain Intensity: 3 Right Neck Pain Intensity: 3 - Emotional Needs Assessment Emotional Needs Assessment: Emotional Needs Identified? Yes Distress Screening Total 3 Expressed Feelings Anxiety Physical Exam Narrative: Unchanged and noncontributory Results - Labs Labs: Diagram of Most Recent CBC and CMP 03/08/20 09:15 03/08/20 09:15 Assessment and Plan (1) Small cell lung cancer CR after 6 cycles of carboplatin, etoposide and atezolizumab. He does have somesmall residual lymphadenopathy which will be watched. He has refused whole brain radiation therapy. I have recommended to him maintenance therapy with atezolizumab. We will start next week. I will see him in June. There was some question about an inguinal hernia but I do not see it on CT scan. (2) Anxiety - Time with Patient Coordination of Care & Counseling Time: Greater than 50% of time spent with patient was for coordination of care (as documented) and [id number] counseling of patient and/or family. Dictated By: George Ash MD DD/ 1459 Signed By: <Electronically signed by MD George Ash> 04/06/20 1528 [facility] Work Phone: [phone]) 286-467710-20-2020 Progress note Author George Ash [facility] March 02, 2020 11:39am Note Date/Time March 02, 2020 1 1:38am [facility] [place] [address] Hem/Onc Follow Up Note - OP Signed Patient: Kirill Echols MR#: [id number] : 1965 Acct:[id number] Age/Sex: 54 / M Type: REG RCR Copies to: MD Rylan Vega MD~ Subjective Date/Time of Service: Date of Service: 03/02/2020 Time of Service: 11:35 Chief Complaint: Patient is here for routine follow up. Patients next dose of Tecentriq is 03/08. Patient had recent two day stay for CP. Patient is wonderingwhat next step in treatment plan is. HPI: Kirill presents in follow-up. He is very upset about whole brain radiation therapy. The patient had a terrible week. He is weeping and solving and very emotional in the room today. I talked about a stage of disease, whole brain radiation therapy and the meta-analysis where there was found to be some improvement with whole brain radiation. This is very distressing and upsetting to the patient. I have told the patient and his spouse that they are in charge and they can makea decision with regard to radiation. This is very upsetting to him and I will recommend that it not be done because of this. The patient will be getting maintenance therapy with atezolizumab and we will be watching CT scans with surveillance. The patient needs something for severe anxiety. I will prescribe Ativan 1 mg p.o. 3 times daily for severe anxiety related to cancer. His final cycle, cycle 6, of chemotherapy will be March 08. This is a 54-year-old gentleman first seen by me November 18, 2019. His symptoms began in September when he presented with chest pain. CT of the chest showed paratracheal and hilar lymphadenopathy. A work-up with a PET scan showed the findings below: Patient: Kirill Echols MR#: [id number] : 1965 Acct:[id number] Age/Sex: 54 / M ADM Date: 0 Loc: Room: Type: [facility] CLI Attending Dr: Varghese Duval MD Ordering Provider: Varghese Duval MD Date of Service: 10/31/19 PET/PET tumor init tx strat sb-mt: R91.1 R91.8 R59.1 Copies to: MD Rylan Vega MD [place] DO~ PET/CT FUSION IMAGING CLINICAL INFORMATION: Single pulmonary nodule. Abnormal lung findings. COMPARISON : CTA chest of 09/29/19 TECHNIQUE: Noncontrasted CT scan from the base of the skull to the upper thigh followed by PET imaging. Multiplanar PET/CT fusion images. The blood sugar is 109mg/dL. The F-18 FDG amount is 12.5mCi. FINDINGS: There are foci of hypermetabolism identified in the RIGHT subclavicular region and in the RIGHT paratracheal region superiorly and potentially with RIGHT supraclavicular region. These may be underwriting service representative of metastatic lymph nodes. There is focus of hypermetabolism in the RIGHT lung apical region. There is a corresponding spiculated lung nodule. This measures up to 12 mm. There is amorphous region of soft tissue density in the RIGHT paratracheal region and also in the RIGHT hilar region. There is associated hypermetabolism in this region. The maximal SUV value is 9. No abnormal chest wall hypermetabolic uptake identified. Normal accumulation of liver and renal collecting system identified. Normal physiologic uptake of the bowel noted. No abnormal hypermetabolic uptake seen. No abdominal mass or adenopathy identified. No soft tissue wall mass or fluid collection identified. No bony lesion seen. No abnormal hypermetabolic bone lesion seen. No abnormal hypermetabolic soft tissue uptake seen. Small region of hypermetabolism in the anal region identified. This is of uncertain clinical significance. PET/PET tumor init tx strat sb-mt IMPRESSION: Amorphous region of hypermetabolic soft tissue in the RIGHT paratracheal region and RIGHT hilar region concerning for malignancy. Foci of hypermetabolism in the superior RIGHT paratracheal region and also in the supra and subclavicular region on the RIGHT which suggest metastatic adenopathy. Hypermetabolic spiculated lymph node in the RIGHT apical region. This is also concerning for malignancy. Impression dictated by: Franklin Gomes M.D.10/31/2019 2:44 PM Dictation Location: [facility] The patient was seen by Dr. James and evaluated by Dr. Duval. 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 Port-A-Cath in place Small cell lung cancer - Surgical History Surgical History: Surgical History (Last Reviewed 02/26/20 @ 00:00 by Karen Low RN) H/O vasectomy H/O wrist surgery Right side, 2006 - Family History Family History: Family History (Last Reviewed 02/26/20 @ 00:00 by Karen Low RN) Mother Colon cancer Father Prostate cancer Other Diabetes mellitus, type 2 Hypertension - Social History Smoking Status: Former smoker Tobacco Type: cigarettes Substance Use Type: None Social History Comments: drinks a six pack per day Home Medications & Allergies Allergies sertraline [From Zoloft] Allergy (Verified 02/25/20 19:33) Swelling of Lip/Tongue/Throat Home Medications amlodipine [Norvasc] 5 mg PO QAM 07/30/19 [History Confirmed 03/02/20] melatonin 3 mg PO QHS 30 Days #30 tab 08/04/19 [Rx Confirmed 03/02/20] buspirone 10 mg PO TID@0900,1400,2200 12/01/19 [History Confirmed 03/02/20] celecoxib [Celebrex] 100 mg PO BID@0900,2100 12/01/19 [History Confirmed 03/02/20] escitalopram oxalate [Lexapro] 10 mg PO QAM 12/01/19 [History Confirmed 03/02/20] quetiapine [Seroquel] 150 mg PO QHS 12/01/19 [History Confirmed 03/02/20] sennosides-docusate sodium [Senexon-S] 1 tab PO BID PRN 12/01/19 [History Confirmed 03/02/20] cyclobenzaprine 5 mg PO Q8H PRN #30 tab 12/04/19 [Rx Confirmed 03/02/20] oxycodone-acetaminophen [Percocet] 1 tab PO Q4H PRN 14 Days #60 tab 12/04/19 [Rx Confirmed 03/02/20] Magic Mouth Wash 10 ml PO Q6HR PRN 12/30/19 [History Confirmed 03/02/20] furosemide [Lasix] 40 mg PO QAM #60 tab 12/30/19 [Rx Confirmed 03/02/20] hydromorphone [Dilaudid] 5 mg PO Q6H PRN 7 Days #140 ml 01/14/20 [Rx Confirmed 03/02/20] sucralfate [Carafate] 10 ml PO QACHS 01/21/20 [History Confirmed 03/02/20] oxycodone [Roxicodone] 15 mg PO Q4H 02/26/20 [History Confirmed 03/02/20] albuterol sulfate 2 inh INHALATION QID PRN #8 gm 02/28/20 [Rx Confirmed 03/02/20] aspirin 81 mg PO DAILY 03/02/20 [History Confirmed 03/02/20] lorazepam [Ativan] 1 mg PO TID 03/02/20 [History Confirmed 03/02/20] Objective - Height/Weight Height/Weight: Height 6 ft Weight 74.843 kg BSA for Today's Weight 1.98 - Vital Signs Vital Signs: 03/02/20 10:44 Temperature 97.3 F L Pulse Rate [Right Brachial] 95 H Respiratory Rate 18 Blood Pressure [Right Arm] 102/67 02 Sat by Pulse Oximetry 98 - Pain Anterior Chest Pain Intensity: 3 Shoulder Pain Intensity: 3 Right Neck Pain Intensity: 3 - Emotional Needs Assessment Emotional Needs Assessment: Emotional Needs Identified? Yes Distress Screening Total 10 Support System Spouse Expressed Feelings Anxiety Ineffective Coping Comment patient has a counselor and spoke with Gallo yesterday Physical Exam Narrative: The patient is weeping and sobbing and very emotional. He is distraught about whole brain radiation therapy. Results - Labs Labs: Diagram of Most Recent CBC and CMP 03/02/20 09:39 03/02/20 09:39 Labs - Last 7 Days 03/02/20 09:39: PHA Creatinine Clear 111.23, Sodium 135 L, Potassium 4.4, Chloride 102, Carbon Dioxide 24.1, BUN 10, Creatinine 0.80, Est GFR ( Amer) > 60, Est GFR (Non-Af Amer) > 60, Glucose 88, Calcium 8.9, Total Bilirubin 0.5, AST 17, ALT 16, Alkaline Phosphatase 137 H, Total Protein 6.1, Albumin 3.7,Globulin 2.4, Albumin/Globulin Ratio 1.5 03/02/20 09:39: WBC 7.6, Corrected WBC 7.6, RBC 3.74 L, Hgb 12.3 L, Hct 36.6 L, MCV 98.0, MCH 32.9, MCHC 33.6, RDW 19.5 H, Plt Count 154, MPV 7.2, Neut % (Auto)79.5, Lymph % (Auto) 9.8, [place] % (Auto) 8.4, Eos % (Auto) 1.7, Baso % (Auto) 0.6, Neut # (Auto) 6.1, Lymph # (Auto) 0.8 L, [place] # (Auto) 0.6, Eos # (Auto) 0.1, Baso # (Auto) 0.0, Nucleated RBC % (auto) 0.1, Platelet Estimate Normal, Plt Morphology Comment Normal, RBC Morphology N/A, Anisocytosis Marked, Target Cells Slight, Schistocytes Rare 02/24/20 10:45: WBC 16.1 H, Corrected WBC 16.1 H, RBC 3.65 L, Hgb 11.5 L, Hct 35.4 L, MCV 96.9, MCH 31.5, MCHC 32.5, RDW 19.9 H, Plt Count 236, MPV 7.0, Neut % (Auto) N/A, Lymph % (Auto) N/A, [place] % (Auto) N/A, Eos % (Auto) N/A, Baso % (Auto) N/A, Neut # (Auto) N/A, Lymph # (Auto) N/A, [place] # (Auto) N/A, Eos # (Auto) N/A, Baso # (Auto) N/A, Nucleated RBC % (auto) 0.0, Band Neutrophils % 13H, Lymphocytes % 9 L, Monocytes % 16 H, Eosinophils % 1, Segmented Neutrophils 61, Dohle Bodies Moderate, Platelet Estimate Normal, Plt Morphology Comment Normal, RBC Morphology N/A, Polychromasia Slight, Poikilocytosis Slight, Anisocytosis Moderate, Ovalocytes Slight Assessment and Plan (1) Small cell lung cancer We will proceed with cycle 6 of chemotherapy on March 08 I have told him not to proceed with whole brain radiation therapy as it is extremely upsetting to him The patient will receive a PET scan in 4 weeks and I will see him in 5 weeks The patient will require maintenance atezolizumab. (2) Anxiety Ativan 1 mg p.o. 3 times daily. I am prescribing this for severe anxiety related to his cancer diagnosis and cancer treatment. - Time with Patient Coordination of Care & Counseling Time: Greater than 50% of time spent with patient was for coordination of care (as documented) and [id number] counseling of patient and/or family. Dictated By: George Ash MD DD/ 1135 Signed By: <Electronically signed by MD George Ash> 03/02/20 1139 [facility] Work Phone: [phone] 494-336810-14-2020 Progress note Author Leoncio Kowalski [facility] February 25, 2020 3:54pm Note Date/Time February 25, 2020 2 :49pm [facility] [place] [address] Rad Onc Follow Up Note - OP Signed Patient: Kirill Echols MR#: [id number] : 1965 Acct:[id number] Age/Sex: 54 / M Type: REG RCR Copies to: MD Rylan Vega MD James E Fanning, MD~ Subjective - Service Date/Time Date: 02/25/20 Time: 14:49 - Diagnosis 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 Recently, his chest pain got much worse and a CT scan of his chest showed paratracheal and hilar lymphadenopathy. He also had a PET CT scan which confirmed a hypermetabolic spiculated mass in the right apical region as well as right hilar and paratracheal lymphadenopathy. There was also involvement of the supra and subclavicular region on the right suggestive of metastatic lymphadenopathy. 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 He has been seen by Dr. Ash and hisport placement will be scheduled within next few days for planning his systemic chemotherapy. Patient completed his 6 weeks course of concurrent chemo-radiotherapy treatments on 01/26/2020 and he returned today for his first post radiotherapy follow-up. Patient is very emotional and is crying to the whole interview today. Is currently on Lexapro prescribed by the palliative care teamand my nurse and I tried to convince him to go to the ER or to go see a psychiatrist but he refused to do so. His was also called by my nurse and patient's is aware of his ongoing mental issues and depression and she has recently taken him to the [facility] ER (couple of times). He has chronic cough but no hemoptysis, headaches, neck lumps, back pain, abdominal pain, urinary or bowel problems, leg swelling, motor or sensory changes. Patient still has some difficulty in swallowing and sore throat and he is taking his Magic mouthwash asprescribed and he is also receiving pain medications from the palliative care team and has reasonable control of his chest pain. His weight has been essentially stable. Patient was also seen by Dr. Ash today and he has 1 remaining chemotherapy treatment which is scheduled in about 2 weeks. I brieflybrought up the option of receiving prophylactic cranial radiation after all his chemotherapy is completed but patient is not mentally prepared to make a decision today. I've closely reviewed the patient's oncologic, medical, surgical, social, and family history. Changes noted above. I also reviewed the patient's medicationsvia reconciliation, as per the nursing record. - Review of Systems ROS: As per HPI. Objective Height 6 ft Weight 74.5 kg Temp 97.4 F L 02/25/20 14:06 Pulse 94 H 02/25/20 14:06 Resp 20 02/25/20 14:06 BP 122/77 02/25/20 14:06 Pulse Ox 99 02/25/20 14:06 Pain: 0/10 Emotional Needs Assessment: Emotional Needs Identified? Yes Distress Screening Total 3 Expressed Feelings Stress Karnofsky Performance Scale: 80%: Can perform normal activity with effort, some signs of disease Physical Exam: Physical examination today, is a thin, alert, oriented, pleasant black gentlemanwho is very emotional crying and is in moderate distress. HEENT examination revealed no cranial neuropathy. No palpable neck lymphadenopathy. Lungs are clear to auscultation. Chest is mild to moderate skin discoloration in the areaof prior radiation as expected. Patient was advised to use Aquaphor ointment locally couple times a day to alleviate this radiation related skin reaction. Cardiac examination is unremarkable. No spinal or paraspinal tenderness is elicited. His abdomen is soft, nontender and there is no palpable mass or organomegaly. Rectal examination was not done. He has no leg edema. He remains neurologically stable including his motor, sensory and cerebellar functions. 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 In the interim, he received no cycle of chemotherapy and his last chemotherapy scheduled to be given number 2 weeks. Patient is being seen by Dr. Ash today and I discussed his further management with him. Patient is very emotional today and is unable to to make a decision regarding PCI. Patient has refused to go to theED or psychiatrist for psychological support but we called his and she is aware of his current depression which is secondary to his cancer diagnosis. Hiscontinue Lexapro prescribed by the palliative care team and patient was advised to call them for any additional medications. He was advised to return for his next radiation cardio follow-up in 2 months and by that time, his chemotherapy will be finished. I shall discuss with him the role of PCI at the time of his next follow-up visit and if he agrees to receive PCI, I shall repeat his brain scan prior to instituting 2 weeks course of outpatient whole brain RT (PCI). Total Time Spent with Patient: Less than 30 minutes More than 50% of time allotted to patient education, answering questions, and coordinating care. N.B: Voice-recognition software was used in the creation of this note. Efforts were made to detect and correct typographical and/or grammatical errors;please excuse them should you find any. Dictated By: Leoncio Kowalski MD DD/ 1448 Signed By: <Electronically signed by Leoncio Kowalski MD> 02/25/20 1554 [facility] Work Phone: [phone] Progress note Author George Ash [facility] February 10, 2020 1:23pm Note Date/Time February 10, 2020 1:20pm [facility] [place] [address] Hem/Onc Follow Up Note - OP Signed Patient: Kirill Echols MR#: [id number] : 1965 Acct:[id number] Age/Sex: 54 / M Type: REG RCR Copies to: MD Rylan Vega MD~ Subjective Date/Time of Service: Date of Service: 02/10/2020 Time of Service: 13:20 Chief Complaint: Patient is here for follow up tox check cycle #4 Carbo/Etoposide/Tecentriq. Patient complains of waking up with occasional blood tinged sputum. HPI: Kirill presents in follow-up today. He has no new complaints. Cycle #5 will beon February 15 and we will plan on cycle 6 on March 08. I will see him in 3 weeks. This is a 54-year-old gentleman first seen by me November 18, 2019. His symptoms began in September when he presented with chest pain. CT of the chest showed paratracheal and hilar lymphadenopathy. A work-up with a PET scan showed the findings below: Patient: Kirill Echols MR#: [id number] : 1965 Acct:[id number] Age/Sex: 54 / M ADM Date: 0 Loc: Room: Type: [facility] CLI Attending Dr: Varghese Duval MD Ordering Provider: Varghese Duval MD Date of Service: 10/31/19 PET/PET tumor init tx strat sb-mt: R91.1 R91.8 R59.1 Copies to: MD Rylan Vega MD [facility]~ PET/CT FUSION IMAGING CLINICAL INFORMATION: Single pulmonary nodule. Abnormal lung findings. COMPARISON : CTA chest of 09/29/19 TECHNIQUE: Noncontrasted CT scan from the base of the skull to the upper thigh followed by PET imaging. Multiplanar PET/CT fusion images. The blood sugar is 109mg/dL. The F-18 FDG amount is 12.5mCi. FINDINGS: There are foci of hypermetabolism identified in the RIGHT subclavicular region and in the RIGHT paratracheal region superiorly and potentially with RIGHT supraclavicular region. These may be underwriting service representative of metastatic lymph nodes. There is focus of hypermetabolism in the RIGHT lung apical region. There is a corresponding spiculated lung nodule. This measures up to 12 mm. There is amorphous region of soft tissue density in the RIGHT paratracheal region and also in the RIGHT hilar region. There is associated hypermetabolism in this region. The maximal SUV value is 9. No abnormal chest wall hypermetabolic uptake identified. Normal accumulation of liver and renal collecting system identified. Normal physiologic uptake of the bowel noted. No abnormal hypermetabolic uptake seen. No abdominal mass or adenopathy identified. No soft tissue wall mass or fluid collection identified. No bony lesion seen. No abnormal hypermetabolic bone lesion seen. No abnormal hypermetabolic soft tissue uptake seen. Small region of hypermetabolism in the anal region identified. This is of uncertain clinical significance. PET/PET tumor init tx strat sb-mt IMPRESSION: Amorphous region of hypermetabolic soft tissue in the RIGHT paratracheal region and RIGHT hilar region concerning for malignancy. Foci of hypermetabolism in the superior RIGHT paratracheal region and also in the supra and subclavicular region on the RIGHT which suggest metastatic adenopathy. Hypermetabolic spiculated lymph node in the RIGHT apical region. This is also concerning for malignancy. Impression dictated by: Franklin Gomes M.D.10/31/2019 2:44 PM Dictation Location: [facility] The patient was seen by Dr. James and evaluated by Dr. Duval. 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 Port-A-Cath in place Small cell lung cancer - Surgical History Surgical History: Surgical History (Last Reviewed 01/24/20 @ 17:35 by Alta Huggins RN) H/O vasectomy H/O wrist surgery Right side, 2006 - Family History Family History: Family History (Last Reviewed 12/03/19 @ 13:40 by Marilu Lowry MD) Mother Colon cancer Father Prostate cancer Other Diabetes mellitus, type 2 Hypertension - Social History Smoking Status: Former smoker Tobacco Type: cigarettes Substance Use Type: Marijuana Social History Comments: drinks a six pack per day Home Medications & Allergies Allergies sertraline [From Zoloft] Allergy (Verified 01/24/20 17:22) Swelling of Lip/Tongue/Throat Home Medications albuterol sulfate [ProAir HFA] 2 puff INHALATION QID PRN 07/30/19 [History Confirmed 02/10/20] amlodipine [Norvasc] 5 mg PO QAM 07/30/19 [History Confirmed 02/10/20] melatonin 3 mg PO QHS 30 Days #30 tab 08/04/19 [Rx Confirmed 02/10/20] potassium chloride 10 meq PO DAILY #30 cap 11/29/19 [Rx Confirmed 02/10/20] buspirone 10 mg PO TID@0900,1400,2200 12/01/19 [History Confirmed 02/10/20] celecoxib [Celebrex] 100 mg PO BID@0900,2100 12/01/19 [History Confirmed 02/10/20] escitalopram oxalate [Lexapro] 10 mg PO QAM 12/01/19 [History Confirmed 02/10/20] quetiapine [Seroquel] 150 mg PO QHS 12/01/19 [History Confirmed 02/10/20] sennosides-docusate sodium [Senexon-S] 1 tab PO BID PRN 12/01/19 [History Confirmed 02/10/20] acetaminophen [Tylenol 8 Hour] 650 mg PO Q8H 30 Days #90 tab 12/04/19 [Rx Confirmed 02/10/20] cyclobenzaprine 5 mg PO Q8H PRN #30 tab 12/04/19 [Rx Confirmed 02/10/20] oxycodone-acetaminophen [Percocet] 1 tab PO Q4H PRN 14 Days #60 tab 12/04/19 [Rx Confirmed 02/10/20] morphine 15 mg PO Q12H 12/16/19 [History Confirmed 02/10/20] Magic Mouth Wash 10 ml PO QID PRN 12/30/19 [History Confirmed 02/10/20] furosemide [Lasix] 40 mg PO QAM #60 tab 12/30/19 [Rx Confirmed 02/10/20] hydromorphone [Dilaudid] 5 mg PO Q6H PRN 7 Days #140 ml 01/14/20 [Rx Confirmed 02/10/20] oxycodone 15 mg PO Q4H 01/15/20 [History Confirmed 02/10/20] hydrocortisone 1 applic TOPICAL BID PRN 01/20/20 [History Confirmed 02/10/20] sucralfate [Carafate] 10 ml PO QACHS 01/21/20 [History Confirmed 02/10/20] Objective - Height/Weight Height/Weight: Height 6 ft Weight 74.8 kg BSA for Today's Weight 1.93 - Vital Signs Vital Signs: 02/10/20 13:10 Temperature 97.9 F Pulse Rate [Right Brachial] 69 Respiratory Rate 18 Blood Pressure [Right Arm] 114/71 02 Sat by Pulse Oximetry 96 - Pain Anterior Chest Pain Intensity: 6 Shoulder Pain Intensity: 3 Right Neck Pain Intensity: 3 - Emotional Needs Assessment Emotional Needs Assessment: Emotional Needs Identified? Yes Distress Screening Total 3 Expressed Feelings Anxiety Physical Exam Narrative: Unchanged from baseline Results - Labs Labs: Diagram of Most Recent CBC and CMP 02/10/20 12:21 02/10/20 12:21 Labs - Last 7 Days 02/10/20 12:21: PHA Creatinine Clear 111.94, Sodium 135 L, Potassium 4.3, Chloride 101, Carbon Dioxide 25.2, BUN 10, Creatinine 0.78, Est GFR ( Amer) > 60, Est GFR (Non-Af Amer) > 60, Glucose 108 H, Calcium 8.7, Total Bilirubin 0.3, AST 15, ALT 12, Alkaline Phosphatase 128 H, Total Protein 6.1, Albumin 3.3, Globulin 2.8, Albumin/Globulin Ratio 1.2 02/10/20 12:21: WBC 6.7, Corrected WBC 6.7, RBC 3.77 L, Hgb 12.0 L, Hct 36.9 L, MCV 97.8, MCH 31.9, MCHC 32.6, RDW 21.0 H, Plt Count 148 L, MPV 6.8, Neut % (Auto) 71.8, Lymph % (Auto) 16.0, [place] % (Auto) 10.5, Eos % (Auto) 0.9, Baso % (Auto) 0.8, Neut # (Auto) 4.8, Lymph # (Auto) 1.1, [place] # (Auto) 0.7, Eos # (Auto) 0.1, Baso # (Auto) 0.1, Nucleated RBC % (auto) 0.1 02/04/20 08:35: WBC 13.5 H, Corrected WBC 13.5 H, RBC 3.87 L, Hgb 12.3 L, Hct 38.1 L, MCV 98.6, MCH 31.7, MCHC 32.2 L, RDW 21.3 H, Plt Count 264, MPV 7.4, Neut % (Auto) 72.3, Lymph % (Auto) 7.8, [place] % (Auto) 18.7, Eos % (Auto) 0.3, Baso % (Auto) 0.9, Neut # (Auto) 9.7 H, Lymph # (Auto) 1.1, [place] # (Auto) 2.5 H,Eos # (Auto) 0.0, Baso # (Auto) 0.1, Nucleated RBC % (auto) 0.1, Platelet Estimate Normal, Plt Morphology Comment Normal, RBC Morphology N/A, Polychromasia Slight, Hypochromasia Slight, Anisocytosis Slight Assessment and Plan (1) Small cell lung cancer Good tolerance to treatment to date. We will proceed with cycle 5 on February 15. I will see him in 3 weeks. - Time with Patient Coordination of Care & Counseling Time: Greater than 50% of time spent with patient was for coordination of care (as documented) and [id number] counseling of patient and/or family. Dictated By: George Ash MD DD/ [id number] Signed By: <Electronically signed by MD George Ash> 02/10/20 9330 [facility] Work Phone: [phone] Progress note Author George Ash [facility] January 20, 2020 11:30am Note Date/Time January 20, 2020 11:28am [facility] at [address] [address] Hem/Onc Follow Up Note - OP Signed Patient: Kirill Echols MR#: [id number] : 1965 Acct:[id number] Age/Sex: 54 / M Type: REG RCR Copies to: MD Rylan Vega MD~ Subjective Date/Time of Service: Date of Service: 01/20/2020 Time of Service: 11:27 Chief Complaint: on treatment visit- taking pain s and it helps pain and swallow, attemtping to get Magic Mouthwash through [facility] HPI: The patient had #3 of chemotherapy on January 04. He will need cycle 4 of carboplatin, etoposide and atezolizumab on January 25. Because of leukopenia he will require on pro which I did add today. [facility] is following him now for palliative pain control and this is clearly better. He is off of steroids. His synovitis and arthritis have resolved. 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 Port-A-Cath in place Small cell lung cancer - Surgical History Surgical History: Surgical History (Last Reviewed 12/03/19 @ 13:40 by Marilu Lowry MD) H/O vasectomy H/O wrist surgery Right side, 2005 - Family History Family History: Family History (Last Reviewed 12/03/19 @ 13:40 by Marilu Lowry MD) Mother Colon cancer Father Prostate cancer Other Diabetes mellitus, type 2 Hypertension - Social History Smoking Status: Former smoker Tobacco Type: cigarettes Substance Use Type: Marijuana Social History Comments: drinks a six pack per day Home Medications & Allergies Allergies sertraline [From Zoloft] Allergy (Verified 12/01/19 12:16) Swelling of Lip/Tongue/Throat Home Medications albuterol sulfate [ProAir HFA] 2 puff INHALATION QID PRN 07/30/19 [History Confirmed 12/16/19] amlodipine [Norvasc] 5 mg PO QAM 07/30/19 [History Confirmed 12/16/19] melatonin 3 mg PO QHS 30 Days #30 tab 08/04/19 [Rx Confirmed 12/16/19] potassium chloride 10 meq PO DAILY #30 cap 11/29/19 [Rx Confirmed 12/16/19] buspirone 10 mg PO TID@0900,1400,2200 12/01/19 [History Confirmed 12/16/19] celecoxib [Celebrex] 100 mg PO BID@0900,2100 12/01/19 [History Confirmed 12/16/19] escitalopram oxalate [Lexapro] 10 mg PO QAM 12/01/19 [History Confirmed 12/16/19] quetiapine [Seroquel] 150 mg PO QHS 12/01/19 [History Confirmed 12/16/19] sennosides-docusate sodium [Senexon-S] 1 tab PO BID PRN 12/01/19 [History Confirmed 12/16/19] acetaminophen [Tylenol 8 Hour] 650 mg PO Q8H 30 Days #90 tab 12/04/19 [Rx Confirmed 12/16/19] cyclobenzaprine 5 mg PO Q8H PRN #30 tab 12/04/19 [Rx Confirmed 12/16/19] oxycodone-acetaminophen [Percocet] 1 tab PO Q4H PRN 14 Days #60 tab 12/04/19 [Rx Confirmed 12/16/19] morphine 15 mg PO Q12H 12/16/19 [History Confirmed 12/16/19] prednisone 50 mg PO DAILY 10 Days #10 tab 12/25/19 [Rx] Magic Mouth Wash 10 ml PO QID PRN 12/30/19 [History] furosemide [Lasix] 40 mg PO QAM #60 tab 12/30/19 [Rx] hydromorphone [Dilaudid] 5 mg PO Q6H PRN 7 Days #140 ml 01/14/20 [Rx] oxycodone 15 mg PO Q4H 01/15/20 [History Confirmed 01/15/20] hydrocortisone 1 applic TOPICAL BID PRN 01/20/20 [History Confirmed 01/20/20] Objective - Height/Weight Height/Weight: Height 6 ft Weight 75.9 kg BSA for Today's Weight 1.96 - Vital Signs Vital Signs: 01/20/20 09:59 Temperature 98.2 F Pulse Rate [Right Brachial] 94 H Respiratory Rate 20 Blood Pressure [Right Arm] 113/83 02 Sat by Pulse Oximetry 98 - Pain Anterior Chest Pain Intensity: 5 Shoulder Pain Intensity: 3 Right Neck Pain Intensity: 3 - Emotional Needs Assessment Emotional Needs Assessment: Emotional Needs Identified? No Distress Screening Total 0 Physical Exam Narrative: Patient is alert and oriented x3. Cranial nerves II through XII are intact. Neurological exam grossly intact. Psych exam normal affect. Lungs audibly withgood air exchange. His synovitis and finger swelling are substantially better. His pedal edema is also substantially better on the steroids. His pain is better. Results - Labs Labs: Diagram of Most Recent CBC and CMP 01/20/20 09:15 01/20/20 09:15 Labs - Last 7 Days 01/20/20 09:15: PHA Creatinine Clear 109.62, Sodium 134 L, Potassium 3.6, Chloride 98, Carbon Dioxide 27.6, BUN 7 L, Creatinine 0.79, Est GFR ( Amer) > 60, Est GFR (Non-Af Amer) > 60, Glucose 122 H, Calcium 8.7, Total Bilirubin 0.5, AST 16, ALT 15, Alkaline Phosphatase 80, Total Protein 5.7 L, Albumin 2.9 L, Globulin 2.8, Albumin/Globulin Ratio 1.0 01/20/20 09:15: WBC 1.7 L, Corrected WBC 1.7 L, RBC 3.32 L, Hgb 10.8 L, Hct 33.1L, MCV 99.7, MCH 32.6, MCHC 32.7, RDW 21.0 H, Plt Count 103 L, MPV 6.1 L, Nucleated RBC % (auto) 0.4 01/14/20 09:00: Hgb 12.2 L, Hct 36.8 L Assessment and Plan (1) Small cell lung cancer Proceed with cycle 4 on February 04. I will then see him in follow-up on February 09. He will require G-CSF with his next chemotherapy because of leukopenia. Pain management is much better. He is off steroids. - Time with Patient Coordination of Care & Counseling Time: Greater than 50% of time spent with patient was for coordination of care (as documented) and [id number] counseling of patient and/or family. Dictated By: George Ash MD DD/ [id number] Signed By: <Electronically signed by MD George Ash> 01/20/20 1130 [facility] Work Phone: [phone] Progress note Author George Ash [facility] December 30, 2019 10:35am Note Date/Time December 30, 2019 10 :01am [facility] at [place] [id number] Hem/Onc Follow Up Note - OP Signed Patient: Kirill Echols MR#: [id number] : 1965 Acct:[id number] Age/Sex: 54 / M Type: REG RCR Copies to: MD Rylan Vega MD~ Subjective Date/Time of Service: Date of Service: 12/30/2019 Time of Service: 09:59 Chief Complaint: Here for on treatment visit-c/o sore throat , and heartburn Discusses concerns over pain medication, I only take the percocet, it was just to much Eye issues- hazy vision started 4 days ago, it is constant HPI: Kirill presents in follow-up. He is pain is substantially better on the steroids. His synovitis, joint swelling and even pedal edema in his feet have all improved substantially. He is having some reflux type symptoms with some GERD and waterbrash and I have instructed him to get some [id number] Prilosec for this. He has some type of inflammatory arthritis with systemic symptoms of swelling and synovitis. He is substantially better on steroids. His next chemotherapy will be January 04 and I will see him the following week. He does not need the morphine anymore. His pain is substantially better. He does need a refill of Percocet 7.5. He will be treated with cycle 3 of chemotherapy on January 04. He is receiving concomitant radiation. He is receiving dose reduced carboplatin as he is on concomitant radiation. We originally dose reduced his etoposide 50% because of liver dysfunction. He was started on Procrit last week December 15 for anemia. 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 This is a 54-year-old gentleman first seen by me November 18, 2019. His symptoms began in September when he presented with chest pain. CT of the chest showed paratracheal and hilar lymphadenopathy. A work-up with a PET scan showed the findings below: Patient: Kirill Echols MR#: [id number] : 1965 Acct:[id number] Age/Sex: 54 / M ADM Date: 0 Loc: Room: Type: [facility] Attending Dr: Varghese Duval MD Ordering Provider: Varghese Duval MD Date of Service: 10/31/19 PET/PET tumor init tx strat sb-mt: R91.1 R91.8 R59.1 Copies to: MD Rylan Vega MD Ward, Jeffrey S DO~ PET/CT FUSION IMAGING CLINICAL INFORMATION: Single pulmonary nodule. Abnormal lung findings. COMPARISON : CTA chest of 09/29/19 TECHNIQUE: Noncontrasted CT scan from the base of the skull to the upper thigh followed by PET imaging. Multiplanar PET/CT fusion images. The blood sugar is 109mg/dL. The F-18 FDG amount is 12.5mCi. FINDINGS: There are foci of hypermetabolism identified in the RIGHT subclavicular region and in the RIGHT paratracheal region superiorly and potentially with RIGHT supraclavicular region. These may be underwriting service representative of metastatic lymph nodes. There is focus of hypermetabolism in the RIGHT lung apical region. There is a corresponding spiculated lung nodule. This measures up to 12 mm. There is amorphous region of soft tissue density in the RIGHT paratracheal region and also in the RIGHT hilar region. There is associated hypermetabolism in this region. The maximal SUV value is 9. No abnormal chest wall hypermetabolic uptake identified. Normal accumulation of liver and renal collecting system identified. Normal physiologic uptake of the bowel noted. No abnormal hypermetabolic uptake seen. No abdominal mass or adenopathy identified. No soft tissue wall mass or fluid collection identified. No bony lesion seen. No abnormal hypermetabolic bone lesion seen. No abnormal hypermetabolic soft tissue uptake seen. Small region of hypermetabolism in the anal region identified. This is of uncertain clinical significance. PET/PET tumor init tx strat sb-mt IMPRESSION: Amorphous region of hypermetabolic soft tissue in the RIGHT paratracheal region and RIGHT hilar region concerning for malignancy. Foci of hypermetabolism in the superior RIGHT paratracheal region and also in the supra and subclavicular region on the RIGHT which suggest metastatic adenopathy. Hypermetabolic spiculated lymph node in the RIGHT apical region. This is also concerning for malignancy. Impression dictated by: Franklin Gomes M.D.10/31/2019 2:44 PM Dictation Location: [facility] The patient was seen by Dr. James and evaluated by Dr. Duval. 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 Port-A-Cath in place Small cell lung cancer - Surgical History Surgical History: Surgical History (Last Reviewed 12/03/19 @ 13:40 by Marilu Lowry MD) H/O vasectomy H/O wrist surgery Right side, 2005 - Family History Family History: Family History (Last Reviewed 12/03/19 @ 13:40 by Marilu Lowry MD) Mother Colon cancer Father Prostate cancer Other Diabetes mellitus, type 2 Hypertension - Social History Smoking Status: Former smoker Tobacco Type: cigarettes Substance Use Type: Marijuana Social History Comments: drinks a six pack per day Home Medications & Allergies Allergies sertraline [From Zoloft] Allergy (Verified 12/01/19 12:16) Swelling of Lip/Tongue/Throat Home Medications albuterol sulfate [ProAir HFA] 2 puff INHALATION QID PRN 07/30/19 [History Confirmed 12/16/19] amlodipine [Norvasc] 5 mg PO QAM 07/30/19 [History Confirmed 12/16/19] melatonin 3 mg PO QHS 30 Days #30 tab 08/04/19 [Rx Confirmed 12/16/19] potassium chloride 10 meq PO DAILY #30 cap 11/29/19 [Rx Confirmed 12/16/19] buspirone 10 mg PO TID@0900,1400,2200 12/01/19 [History Confirmed 12/16/19] celecoxib [Celebrex] 100 mg PO BID@0900,2100 12/01/19 [History Confirmed 12/16/19] escitalopram oxalate [Lexapro] 10 mg PO QAM 12/01/19 [History Confirmed 12/16/19] quetiapine [Seroquel] 150 mg PO QHS 12/01/19 [History Confirmed 12/16/19] sennosides-docusate sodium [Senexon-S] 1 tab PO BID PRN 12/01/19 [History Confirmed 12/16/19] acetaminophen [Tylenol 8 Hour] 650 mg PO Q8H 30 Days #90 tab 12/04/19 [Rx Confirmed 12/16/19] cyclobenzaprine 5 mg PO Q8H PRN #30 tab 12/04/19 [Rx Confirmed 12/16/19] oxycodone-acetaminophen [Percocet] 1 tab PO Q4H PRN 14 Days #60 tab 12/04/19 [Rx Confirmed 12/16/19] morphine 15 mg PO Q12H 12/16/19 [History Confirmed 12/16/19] prednisone 50 mg PO DAILY 10 Days #10 tab 12/25/19 [Rx] Magic Mouth Wash 10 ml PO QID PRN 12/30/19 [History] furosemide [Lasix] 40 mg PO QAM #60 tab 12/30/19 [Rx] Objective - Height/Weight Height/Weight: Height 6 ft 0.24 in Weight 75 kg BSA for Today's Weight 2.00 - Vital Signs Vital Signs: 12/30/19 09:32 Temperature 97.7 F Pulse Rate [Right Brachial] 70 Respiratory Rate 22 Blood Pressure [Right Arm] 136/86 02 Sat by Pulse Oximetry 98 - Pain Anterior Chest Pain Intensity: 5 Shoulder Pain Intensity: 9 Right Neck Pain Intensity: 4 - Emotional Needs Assessment Emotional Needs Assessment: Emotional Needs Identified? No Distress Screening Total 2 Support System Spouse Expressed Feelings Anxiety Physical Exam Narrative: His synovitis and finger swelling are substantially better. His pedal edema is also substantially better on the steroids. His pain is remarkably better on thesystemic steroids. Results - Labs Labs: Diagram of Most Recent CBC and CMP 12/30/19 08:58 12/15/19 08:20 Labs - Last 7 Days 12/30/19 08:58: WBC 3.6 L, Corrected WBC 3.6 L, RBC 3.00 L, Hgb 9.6 L, Hct 29.5 L, MCV 98.4, MCH 32.0, MCHC 32.5, RDW 20.5 H, Plt Count 200, MPV 6.3 L, Nucleated RBC % (auto) 0.6 H 12/23/19 10:35: WBC 8.1, Corrected WBC 8.1, RBC 2.77 L, Hgb 8.7 L, Hct 26.5 L, MCV 95.9, MCH 31.5, MCHC 32.9, RDW 19.4 H, Plt Count 507 H, MPV 5.9 L, Neut % (Auto) N/A, Lymph % (Auto) N/A, [place] % (Auto) N/A, Eos % (Auto) N/A, Baso % (Auto) N/A, Neut # (Auto) N/A, Lymph # (Auto) N/A, [place] # (Auto) N/A, Eos # (Auto) N/A, Baso # (Auto) N/A, Nucleated RBC % (auto) 0.3, Band Neutrophils % 1, Lymphocytes % 7 L, Monocytes % 10, Segmented Neutrophils 82 H, Platelet EstimateIncreased H, Plt Morphology Comment Normal, RBC Morphology N/A, Polychromasia Slight, Poikilocytosis Slight, Schistocytes Rare Assessment and Plan (1) Small cell lung cancer The patient will receive cycle 3 of chemotherapy on January 04. I will then see him the following week for clinical follow-up. (2) Neck pain This is substantially better and he has stopped taking the morphine. He prefersto take Percocet 7.5 which we will refill for his cancer pain. (3) Joint pain The patient has had a remarkable improvement in the synovitis arthritis joint, finger and foot swelling with prednisone 50 mg a day for the last 7 days. He will finish this at that the 10-day prescription. The patient had definitely has some type of systemic vasculitis/arthritis responsive to steroids. We will finish his steroids at this time and see him in follow-up. I do not know if thesymptoms will rebound. We may consider additional serologic tests to assess forthe presence of rheumatoid arthritis, etc. - Time with Patient Coordination of Care & Counseling Time: Greater than 50% of time spent with patient was for coordination of care (as documented) and [id number] counseling of patient and/or family. Dictated By: George Ash MD DD/ [id number] Signed By: <Electronically signed by MD George Ash> 12/30/19 7114 [facility] Work Phone: [phone] Progress note Author George Ash [facility] December 23, 2019 10:25am Note Date/Time December 23, 2019 10 :18am [facility] [place] [address] Hem/Onc Follow Up Note - OP Signed Patient: Kirill Echols MR#: [id number] : 1965 Acct:[id number] Age/Sex: 54 / M Type: REG RCR Copies to: MD Rylan Vega MD~ Subjective Date/Time of Service: Date of Service: 12/23/2019 Time of Service: 10:15 Chief Complaint: PTV visit- c/o pain in right neck and shoulder, knees taking Morphine. C/o shortness of breath with moving. P.O. 98% at rest. Walk test about40 feet on room air, sat decreases to 95%. Pt has home O2 and wears at night 4 l, nc. HPI: Kirill presents 1 week after cycle 2 of chemotherapy. He is not taking his painmedicine correctly. He is on 15 mg of morphine twice daily and Percocet. He only takes his Percocet every other day and alternates this with morphine. I gave him close instructions on twice a day dosing of the morphine and Percocet as needed for breakthrough pain. He continues to have neck and back pain secondary to his small cell lung cancer. Today in follow-up he has diffuse joint complaints. According to him his finger toes joints etc. all ache. Looking at his fingers, he does have diffusely swollen digits consistent with synovitis. He does not have any longstanding history of rheumatoid arthritis orother systemic vasculitides. He is receiving dose reduced carboplatin as he is on concomitant radiation. We originally dose reduced his etoposide 50% because of liver dysfunction. He was started on Procrit last week December 15 for anemia. 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 This is a 54-year-old gentleman first seen by me November 18, 2019. His symptoms began in September when he presented with chest pain. CT of the chest showed paratracheal and hilar lymphadenopathy. A work-up with a PET scan showed the findings below: Patient: Kirill Echols MR#: [id number] : 1965 Acct:[id number] Age/Sex: 54 / M ADM Date: 0 Loc: Room: Type: [facility] Attending Dr: Varghese Duval MD Ordering Provider: Varghese Duval MD Date of Service: 10/31/19 PET/PET tumor init tx strat sb-mt: R91.1 R91.8 R59.1 Copies to: MD Rylan Vega MD Ward, Jeffrey S DO~ PET/CT FUSION IMAGING CLINICAL INFORMATION: Single pulmonary nodule. Abnormal lung findings. COMPARISON : CTA chest of 09/29/19 TECHNIQUE: Noncontrasted CT scan from the base of the skull to the upper thigh followed by PET imaging. Multiplanar PET/CT fusion images. The blood sugar is 109mg/dL. The F-18 FDG amount is 12.5mCi. FINDINGS: There are foci of hypermetabolism identified in the RIGHT subclavicular region and in the RIGHT paratracheal region superiorly and potentially with RIGHT supraclavicular region. These may be underwriting service representative of metastatic lymph nodes. There is focus of hypermetabolism in the RIGHT lung apical region. There is a corresponding spiculated lung nodule. This measures up to 12 mm. There is amorphous region of soft tissue density in the RIGHT paratracheal region and also in the RIGHT hilar region. There is associated hypermetabolism in this region. The maximal SUV value is 9. No abnormal chest wall hypermetabolic uptake identified. Normal accumulation of liver and renal collecting system identified. Normal physiologic uptake of the bowel noted. No abnormal hypermetabolic uptake seen. No abdominal mass or adenopathy identified. No soft tissue wall mass or fluid collection identified. No bony lesion seen. No abnormal hypermetabolic bone lesion seen. No abnormal hypermetabolic soft tissue uptake seen. Small region of hypermetabolism in the anal region identified. This is of uncertain clinical significance. PET/PET tumor init tx strat sb-mt IMPRESSION: Amorphous region of hypermetabolic soft tissue in the RIGHT paratracheal region and RIGHT hilar region concerning for malignancy. Foci of hypermetabolism in the superior RIGHT paratracheal region and also in the supra and subclavicular region on the RIGHT which suggest metastatic adenopathy. Hypermetabolic spiculated lymph node in the RIGHT apical region. This is also concerning for malignancy. Impression dictated by: Franklin Gomes M.D.10/31/2019 2:44 PM Dictation Location: [facility] The patient was seen by Dr. James and evaluated by Dr. Duval. 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 Port-A-Cath in place Small cell lung cancer - Surgical History Surgical History: Surgical History (Last Reviewed 12/03/19 @ 13:40 by Marilu Lowry MD) H/O vasectomy H/O wrist surgery Right side, 2005 - Family History Family History: Family History (Last Reviewed 12/03/19 @ 13:40 by Marilu Lowry MD) Mother Colon cancer Father Prostate cancer Other Diabetes mellitus, type 2 Hypertension - Social History Smoking Status: Former smoker Tobacco Type: cigarettes Substance Use Type: Marijuana Social History Comments: drinks a six pack per day Home Medications & Allergies Allergies sertraline [From Zoloft] Allergy (Verified 12/01/19 12:16) Swelling of Lip/Tongue/Throat Home Medications albuterol sulfate [ProAir HFA] 2 puff INHALATION QID PRN 07/30/19 [History Confirmed 12/16/19] amlodipine [Norvasc] 5 mg PO QAM 07/30/19 [History Confirmed 12/16/19] melatonin 3 mg PO QHS 30 Days #30 tab 08/04/19 [Rx Confirmed 12/16/19] potassium chloride 10 meq PO DAILY #30 cap 11/29/19 [Rx Confirmed 12/16/19] buspirone 10 mg PO TID@0900,1400,2200 12/01/19 [History Confirmed 12/16/19] celecoxib [Celebrex] 100 mg PO BID@0900,2100 12/01/19 [History Confirmed 12/16/19] escitalopram oxalate [Lexapro] 10 mg PO QAM 12/01/19 [History Confirmed 12/16/19] furosemide [Lasix] 40 mg PO QAM 12/01/19 [History Confirmed 12/16/19] quetiapine [Seroquel] 150 mg PO QHS 12/01/19 [History Confirmed 12/16/19] sennosides-docusate sodium [Senexon-S] 1 tab PO BID PRN 12/01/19 [History Confirmed 12/16/19] acetaminophen [Tylenol 8 Hour] 650 mg PO Q8H 30 Days #90 tab 12/04/19 [Rx Confirmed 12/16/19] cyclobenzaprine 5 mg PO Q8H PRN #30 tab 12/04/19 [Rx Confirmed 12/16/19] oxycodone-acetaminophen [Percocet] 1 tab PO Q4H PRN 14 Days #60 tab 12/04/19 [Rx Confirmed 12/16/19] morphine 15 mg PO Q12H 12/16/19 [History Confirmed 12/16/19] furosemide [Lasix] 40 mg PO DAILY PRN #60 tab 12/18/19 [Rx] prednisone 50 mg PO DAILY 10 Days #10 tab 12/23/19 [Rx] Objective - Height/Weight Height/Weight: Height 6 ft 0.24 in Weight 75.5 kg BSA for Today's Weight 2.00 - Vital Signs Vital Signs: 12/23/19 09:21 Temperature 97.8 F Pulse Rate [Right Brachial] 94 H Respiratory Rate 22 Blood Pressure [Right Arm] 120/76 02 Sat by Pulse Oximetry 98 - Pain Anterior Chest Pain Intensity: 5 Shoulder Pain Intensity: 9 Right Neck Pain Intensity: 9 - Emotional Needs Assessment Emotional Needs Assessment: Emotional Needs Identified? No Distress Screening Total 3 Support System Spouse Expressed Feelings Anxiety Physical Exam Narrative: The patient aches all over. He has clubbing. His swelling is much better in his feet. Examination of his fingers show swollen digits. There is evidence ofsynovitis and pain with palpation. Results - Labs Labs: Diagram of Most Recent CBC and CMP 12/15/19 08:20 12/15/19 08:20 Assessment and Plan (1) Small cell lung cancer The patient has completed cycle 2 of chemotherapy, currently on chemotherapy andradiation for small cell lung cancer. His next cycle, cycle 3 will be January 04. He is on dose reduced carboplatin for concomitant radiation. He is on dosereduced etoposide because of pre-existing liver dysfunction. If this is a reaction from his chemotherapy, I have never seen this. The patient presents with a syndrome reminiscent of diffuse synovitis and arthritis. This could be paraneoplastic. I do not know if it is some other type of phenomenon such as infectious. At this point I will prescribe prednisone 50 mg a day for 10 days. I will see him in 1 week. I gave him careful and close instruction on the use of morphine and Percocet and how to take it as prescribed. He has 2 syndromes going on, his cancer pain which is in his neck and back and the diffuse synovitis and arthritis type of pain that he is voicing today. There is a possibility this could be infectious type in nature but he is not having any fevers chills etc. This will have to be carefully watched. I am checking his lab work today. I will see him in 1 week for follow-up. (2) Neck pain see above (3) Joint pain see above - Time with Patient Coordination of Care & Counseling Time: Greater than 50% of time spent with patient was for coordination of care (as documented) and [id number] counseling of patient and/or family. Dictated By: George Ash MD DD/ 1015 Signed By: <Electronically signed by MD George Ash> 12/23/19 1025 [facility] Work Phone: [phone] 148-948308-04-2020 Progress note Author George Ash [facility] December 16, 2019 11:08am Note Date/Time December 16, 2019 11: 01am [facility] [place] [id number] Hem/Onc Follow Up Note - OP Signed Patient: Kirill Echols MR#: [id number] : 1965 Acct:[id number] Age/Sex: 54 / M [facility] Cop[facility] to: MD Rylan Vega MD~ Subjective Date/Time of Service: Date of Service: 12/16/2019 Time of Service: 10:59 Chief Complaint: Here for on treatment radiation visit and med onc.follow up.Pitting edema bilateral lower legs,ankles and feet,relates it has improved. HPI: Kirill presents currently on cycle 2 of chemotherapy. This is cycle 2, day 2 12/16/2019. He is receiving dose reduced carboplatin as he is on concomitant radiation. We originally dose reduced his etoposide 50% because of liver dysfunction. I am watching his anemia carefully. His hemoglobin is 8.4. I talked about erythropoietin today. I will start weekly procrit. I will see him in 1 week for a CBC check. 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 This is a 54-year-old gentleman first seen by me November 18, 2019. His symptoms began in September when he presented with chest pain. CT of the chest showed paratracheal and hilar lymphadenopathy. A work-up with a PET scan showed the findings below: Patient: Kirill Echols MR#: [id number] : 1965 Acct:[id number] Age/Sex: 54 / M ADM Date: 0 Loc: Room: [facility] Att[facility] Dr: Varghese Duval MD Ordering Provider: Varghese Duval MD Date of Service: 10/31/19 PET/PET tumor init tx strat sb-mt: R91.1 R91.8 R59.1 Copies to: MD Rylan Vega MD Ward, Jeffrey S DO~ PET/CT FUSION IMAGING CLINICAL INFORMATION: Single pulmonary nodule. Abnormal lung findings. COMPARISON : CTA chest of 09/29/19 TECHNIQUE: Noncontrasted CT scan from the base of the skull to the upper thigh followed by PET imaging. Multiplanar PET/CT fusion images. The blood sugar is 109mg/dL. The F-18 FDG amount is 12.5mCi. FINDINGS: There are foci of hypermetabolism identified in the RIGHT subclavicular region and in the RIGHT paratracheal region superiorly and potentially with RIGHT supraclavicular region. These may be underwriting service representative of metastatic lymph nodes. There is focus of hypermetabolism in the RIGHT lung apical region. There is a corresponding spiculated lung nodule. This measures up to 12 mm. There is amorphous region of soft tissue density in the RIGHT paratracheal region and also in the RIGHT hilar region. There is associated hypermetabolism in this region. The maximal SUV value is 9. No abnormal chest wall hypermetabolic uptake identified. Normal accumulation of liver and renal collecting system identified. Normal physiologic uptake of the bowel noted. No abnormal hypermetabolic uptake seen. No abdominal mass or adenopathy identified. No soft tissue wall mass or fluid collection identified. No bony lesion seen. No abnormal hypermetabolic bone lesion seen. No abnormal hypermetabolic soft tissue uptake seen. Small region of hypermetabolism in the anal region identified. This is of uncertain clinical significance. PET/PET tumor init tx strat sb-mt IMPRESSION: Amorphous region of hypermetabolic soft tissue in the RIGHT paratracheal region and RIGHT hilar region concerning for malignancy. Foci of hypermetabolism in the superior RIGHT paratracheal region and also in the supra and subclavicular region on the RIGHT which suggest metastatic adenopathy. Hypermetabolic spiculated lymph node in the RIGHT apical region. This is also concerning for malignancy. Impression dictated by: Franklin Gomes M.D.10/31/2019 2:44 PM Dictation Location: [facility] The patient was seen by Dr. James and evaluated by Dr. Duval. 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 Port-A-Cath in place Small cell lung cancer - Surgical History Surgical History: Surgical History (Last Reviewed 12/03/19 @ 13:40 by Marilu Lowry MD) H/O vasectomy H/O wrist surgery Right side, 2006 - Family History Family History: Family History (Last Reviewed 12/03/19 @ 13:40 by Marilu Lowry MD) Mother Colon cancer Father Prostate cancer Other Diabetes mellitus, type 2 Hypertension - Social History Smoking Status: Former smoker Tobacco Type: cigarettes Substance Use Type: Marijuana Social History Comments: drinks a six pack per day Home Medications & Allergies Allergies sertraline [From Zoloft] Allergy (Verified 12/01/19 12:16) Swelling of Lip/Tongue/Throat Home Medications albuterol sulfate [ProAir HFA] 2 puff INHALATION QID PRN 07/30/19 [History Confirmed 12/16/19] amlodipine [Norvasc] 5 mg PO QAM 07/30/19 [History Confirmed 12/16/19] melatonin 3 mg PO QHS 30 Days #30 tab 08/04/19 [Rx Confirmed 12/16/19] potassium chloride 10 meq PO DAILY #30 cap 11/29/19 [Rx Confirmed 12/16/19] buspirone 10 mg PO TID@0900,1400,2200 12/01/19 [History Confirmed 12/16/19] celecoxib [Celebrex] 100 mg PO BID@0900,2100 12/01/19 [History Confirmed 12/16/19] escitalopram oxalate [Lexapro] 10 mg PO QAM 12/01/19 [History Confirmed 12/16/19] furosemide [Lasix] 40 mg PO QAM 12/01/19 [History Confirmed 12/16/19] quetiapine [Seroquel] 150 mg PO QHS 12/01/19 [History Confirmed 12/16/19] sennosides-docusate sodium [Senexon-S] 1 tab PO BID PRN 12/01/19 [History Confirmed 12/16/19] acetaminophen [Tylenol 8 Hour] 650 mg PO Q8H 30 Days #90 tab 12/04/19 [Rx Confirmed 12/16/19] cyclobenzaprine 5 mg PO Q8H PRN #30 tab 12/04/19 [Rx Confirmed 12/16/19] oxycodone-acetaminophen [Percocet] 1 tab PO Q4H PRN 14 Days #60 tab 12/04/19 [Rx Confirmed 12/16/19] Objective - Height/Weight Height/Weight: Height 6 ft 0.24 in Weight 80.8 kg BSA for Today's Weight 2.01 - Vital Signs Vital Signs: 12/16/19 10:19 Temperature 98.2 F Pulse Rate [Right Brachial] 89 Respiratory Rate 20 Blood Pressure [Right Arm] 135/79 02 Sat by Pulse Oximetry 99 - Pain Anterior Chest Pain Intensity: 5 Shoulder Pain Intensity: 5 Right Neck Pain Intensity: 5 - Emotional Needs Assessment Emotional Needs Assessment: Emotional Needs Identified? Yes Support System Family Expressed Feelings Anxiety Physical Exam Narrative: The patient's weight is up. He has a lot of lower extremity edema. Results - Labs Labs: Diagram of Most Recent CBC and CMP 12/15/19 08:20 12/15/19 08:20 Labs - Last 7 Days 12/15/19 08:20: Total Bilirubin 0.7, Direct Bilirubin 0.3, Indirect Bilirubin 0.4, AST 19, ALT 14, Alkaline Phosphatase 107 H, Total Protein 5.8 L, Albumin 2.3 L, Globulin 3.5, Albumin/Globulin Ratio 0.7, Free T4 0.61, TSH 3rd Generation 1.29 12/15/19 08:20: PHA Creatinine Clear 123.59, Sodium 131 L, Potassium 4.2, Chloride 100, Carbon Dioxide 22.2, BUN 3 L, Creatinine 0.75, Est GFR ( Amer) > 60, Est GFR (Non-Af Amer) > 60, Glucose 85, Calcium 8.3, Total Bilirubin0.8, AST 18, ALT 13, Alkaline Phosphatase 106 H, Total Protein 5.7 L, Albumin 2.3 L, Globulin 3.4, Albumin/Globulin Ratio 0.7 12/15/19 08:20: WBC 4.7, Corrected WBC 4.7, RBC 2.63 L, Hgb 8.4 L, Hct 25.4 L, MCV 96.8, MCH 31.9, MCHC 33.0, RDW 18.7 H, Plt Count 529 H, MPV 6.0 L, Neut % (Auto) 33.7, Lymph % (Auto) 41.5, [place] % (Auto) 21.4, Eos % (Auto) 2.0, Baso % (Auto) 1.4, Neut # (Auto) 1.6 L, Lymph # (Auto) 1.9, [place] # (Auto) 1.0 H, Eos # (Auto) 0.1, Baso # (Auto) 0.1, Nucleated RBC % (auto) 2.2 H, Platelet Estimate Increased H, Plt Morphology Comment Normal, RBC Morphology N/A, Polychromasia Moderate, Hypochromasia Slight, Poikilocytosis Slight, Anisocytosis Moderate 12/09/19 09:14: WBC 2.5 L, Corrected WBC 2.5 L, RBC 2.58 L, Hgb 8.1 L, Hct 24.5 L, MCV 94.9, MCH 31.5, MCHC 33.2, RDW 16.4 H, Plt Count 341, MPV 6.9, Neut % (Auto) 21.1, Lymph % (Auto) 51.6, [place] % (Auto) 24.2, Eos % (Auto) 1.9, Baso % (Auto) 1.2, Neut # (Auto) 0.5 L, Lymph # (Auto) 1.3, [place] # (Auto) 0.6, Eos # (Auto) 0.0, Baso # (Auto) 0.0, Nucleated RBC % (auto) 0.4, Platelet Estimate Normal, Plt Morphology Comment Normal, RBC Morphology N/A, Polychromasia Slight,Hypochromasia Slight, Poikilocytosis Slight, Anisocytosis Slight, Stomatocytes Slight Assessment and Plan (1) Small cell lung cancer he is on cycle 2 chemotherapy, dose reduced for concomitant xrt. Today, he doesnot have any complaints related to chemotherapy. The radiation has been started. His carboplatin has been dose reduced because of radiation. He is already on dose reduced etoposide for liver disease. (2) Anemia due to chemotherapy start procrit weekly see me in one week for cbc check (3) Neck pain likely related to his cancer. This is still present. We will continue observation. - Time with Patient Coordination of Care & Counseling Time: Greater than 50% of time spent with patient was for coordination of care (as documented) and [id number] counseling of patient and/or family. Dictated By: George Ash MD DD/ 105 Signed By: <Electronically signed by MD George Ash> 12/16/19 5055 [facility] Work Phone: [phone] Progress note Author George Ash [facility] December 09, 2019 11:13am Note Date/Time December 09, 2019 11:1 1am [facility] at [address] [address] Hem/Onc Follow Up Note - OP Signed Patient: Kirill Echols MR#: [id number] : 1965 Acct:[id number] Age/Sex: 54 / M Type: REG RCR Copies to: MD Rylan Vega MD~ Subjective Date/Time of Service: Date of Service: 12/09/2019 Time of Service: 11:09 Chief Complaint: Patient is here for follow up tox check patient complains of bilt pitting edema. Patient had two hospital stays since last visit. Patient hasbrain scan for review. Patient states he is not urinating as good as he should be. Patient has gained 8kg since last visit. HPI: Kirill was admitted to the hospital several times according to him with neck pain and back pain. Was felt that this was likely from his disease. He has a lot of anasarca and his weight is up. I think this is likely from the effects of the hospitalization. He will be ready for cycle #2 on December 14. We will addradiation therapy and. Kirill presents for cycle 1 day 2 for chemotherapy. He does have some mild ankle swelling. I will prescribe Lasix 20 mg a day for this. His tolerance so far to chemotherapy has been good. He tolerated day 1 well yesterday. This is a 54-year-old gentleman first seen by me November 18, 2019. His symptoms began in September when he presented with chest pain. CT of the chest showed paratracheal and hilar lymphadenopathy. A work-up with a PET scan showed the findings below: Patient: Kirill Echols MR#: [id number] : 1965 Acct:[id number] Age/Sex: 54 / M ADM Date: 0 Loc: Room: Type: [facility] CLI Attending Dr: Varghese Duval MD Ordering Provider: Varghese Duval MD Date of Service: 10/31/19 PET/PET tumor init tx strat sb-mt: R91.1 R91.8 R59.1 Copies to: MD Rylan Vega MD Ward, Jeffrey S DO~ PET/CT FUSION IMAGING CLINICAL INFORMATION: Single pulmonary nodule. Abnormal lung findings. COMPARISON : CTA chest of 09/29/19 TECHNIQUE: Noncontrasted CT scan from the base of the skull to the upper thigh followed by PET imaging. Multiplanar PET/CT fusion images. The blood sugar is 109mg/dL. The F-18 FDG amount is 12.5mCi. FINDINGS: There are foci of hypermetabolism identified in the RIGHT subclavicular region and in the RIGHT paratracheal region superiorly and potentially with RIGHT supraclavicular region. These may be underwriting service representative of metastatic lymph nodes. There is focus of hypermetabolism in the RIGHT lung apical region. There is a corresponding spiculated lung nodule. This measures up to 12 mm. There is amorphous region of soft tissue density in the RIGHT paratracheal region and also in the RIGHT hilar region. There is associated hypermetabolism in this region. The maximal SUV value is 9. No abnormal chest wall hypermetabolic uptake identified. Normal accumulation of liver and renal collecting system identified. Normal physiologic uptake of the bowel noted. No abnormal hypermetabolic uptake seen. No abdominal mass or adenopathy identified. No soft tissue wall mass or fluid collection identified. No bony lesion seen. No abnormal hypermetabolic bone lesion seen. No abnormal hypermetabolic soft tissue uptake seen. Small region of hypermetabolism in the anal region identified. This is of uncertain clinical significance. PET/PET tumor init tx strat sb-mt IMPRESSION: Amorphous region of hypermetabolic soft tissue in the RIGHT paratracheal region and RIGHT hilar region concerning for malignancy. Foci of hypermetabolism in the superior RIGHT paratracheal region and also in the supra and subclavicular region on the RIGHT which suggest metastatic adenopathy. Hypermetabolic spiculated lymph node in the RIGHT apical region. This is also concerning for malignancy. Impression dictated by: Franklin Gomes M.D.10/31/2019 2:44 PM Dictation Location: [facility] The patient was seen by Dr. James and evaluated by Dr. Duval. 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 Port-A-Cath in place Small cell lung cancer - Surgical History Surgical History: Surgical History (Last Reviewed 12/03/19 @ 13:40 by Marilu Lowry MD) H/O vasectomy H/O wrist surgery Right side, 2005 - Family History Family History: Family History (Last Reviewed 12/03/19 @ 13:40 by Marilu Lowry MD) Mother Colon cancer Father Prostate cancer Other Diabetes mellitus, type 2 Hypertension - Social History Smoking Status: Former smoker Tobacco Type: cigarettes Substance Use Type: Marijuana Social History Comments: drinks a six pack per day Home Medications & Allergies Allergies sertraline [From Zoloft] Allergy (Verified 12/01/19 12:16) Swelling of Lip/Tongue/Throat Home Medications albuterol sulfate [ProAir HFA] 2 puff INHALATION QID PRN 07/30/19 [History Confirmed 12/09/19] amlodipine [Norvasc] 5 mg PO QAM 07/30/19 [History Confirmed 12/09/19] melatonin 3 mg PO QHS 30 Days #30 tab 08/04/19 [Rx Confirmed 12/09/19] potassium chloride 10 meq PO DAILY #30 cap 11/29/19 [Rx Confirmed 12/09/19] buspirone 10 mg PO TID@0900,1400,2200 12/01/19 [History Confirmed 12/09/19] celecoxib [Celebrex] 100 mg PO BID@0900,2100 12/01/19 [History Confirmed 12/09/19] escitalopram oxalate [Lexapro] 10 mg PO QAM 12/01/19 [History Confirmed 12/09/19] furosemide [Lasix] 20 mg PO QAM 12/01/19 [History Confirmed 12/09/19] quetiapine [Seroquel] 150 mg PO QHS 12/01/19 [History Confirmed 12/09/19] sennosides-docusate sodium [Senexon-S] 1 tab PO BID PRN 12/01/19 [History Confirmed 12/09/19] acetaminophen [Tylenol 8 Hour] 650 mg PO Q8H 30 Days #90 tab 12/04/19 [Rx Confirmed 12/09/19] cyclobenzaprine 5 mg PO Q8H PRN #30 tab 12/04/19 [Rx Confirmed 12/09/19] oxycodone-acetaminophen [Percocet] 1 tab PO Q4H PRN 14 Days #60 tab 12/04/19 [Rx Confirmed 12/09/19] Objective - Height/Weight Height/Weight: Height 6 ft 0.24 in Weight 78.018 kg BSA for Today's Weight 1.90 - Vital Signs Vital Signs: 12/09/19 09:41 Temperature 98.7 F Pulse Rate [Right Brachial] 90 Respiratory Rate 18 Blood Pressure [Right Arm] 125/66 02 Sat by Pulse Oximetry 99 - Pain Anterior Chest Pain Intensity: 3 - Emotional Needs Assessment Emotional Needs Assessment: Emotional Needs Identified? Yes Distress Screening Total 3 Expressed Feelings Anxiety Physical Exam Narrative: The patient's weight is up. He has a lot of lower extremity edema. Results - Labs Labs: Diagram of Most Recent CBC and CMP 12/09/19 09:14 Labs - Last 7 Days 12/09/19 09:14: PHA Creatinine Clear [id number], Sodium 130 L, Potassium 4.3, Chloride 99, Carbon Dioxide 23.1, BUN 3 L, Creatinine 0.85, Est GFR ( Amer) > 60, Est GFR (Non-Af Amer) > 60, Glucose 135 H, Calcium 8.2, Total Bilirubin 0.8, Direct Bilirubin 0.4, Indirect Bilirubin 0.4, AST 19, ALT 16, Alkaline Phosphatase 105 H, Total Protein 4.8 L, Albumin 2.1 L, Globulin 2.7, Albumin/Globulin Ratio 0.8, Free T4 0.76, TSH 3rd Generation 0.94 Assessment and Plan (1) Small cell lung cancer We will plan on cycle 2 of chemotherapy December 14. We will add radiation at thattime as well. 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 I will adjust his dose of carboplatin to 50% as well. He will see radiation oncology today. Literature is reviewed with regard to atezolizumab being used concomitant radiation. (2) Edema We will bump his Lasix up to 40 mg a day for 1 week and then cut down to 20 mg aday. - Time with Patient Coordination of Care & Counseling Time: Greater than 50% of time spent with patient was for coordination of care (as documented) and [id number] counseling of patient and/or family. Dictated By: George Ash MD DD/ [id number] Signed By: <Electronically signed by MD George Ash> 12/09/19 1113 [facility] Work Phone: [phone] Progress note Author George Ash [facility] November 25, 2019 11:06am Note Date/Time November 25, 2019 11:0 1am [facility] [place] [id number] Hem/Onc Follow Up Note - OP Signed Patient: Kirill Echols MR#: [id number] : 1965 Acct:[id number] Age/Sex: 54 / M Type: REG RCR Copies to: MD Rylan Vega MD~ Subjective Date/Time of Service: Date of Service: 11/25/2019 Time of Service: 11:00 Chief Complaint: Follow up appt prior to treatment leg and pedal swelling HPI: Kirill presents for cycle 1 day 2 for chemotherapy. He does have some mild ankle swelling. I will prescribe Lasix 20 mg a day for this. His tolerance so far to chemotherapy has been good. He tolerated day 1 well yesterday. He has seen radiation oncology and if radiation will be used, we will plan on starting on this the second cycle of chemotherapy. I want to get his treatment started as soon as possible. Infusiport planned for this week. Head CT negative. This is a 54-year-old gentleman first seen by me November 18, 2019. His symptoms began in September when he presented with chest pain. CT of the chest showed paratracheal and hilar lymphadenopathy. A work-up with a PET scan showed the findings below: Patient: Kirill Echols MR#: [id number] : 1965 Acct:[id number] Age/Sex: 54 / M ADM Date: 0 Loc: Room: Type: [facility] Attending Dr: Varghese Duval MD Ordering Provider: Varghese Duval MD Date of Service: 10/31/19 PET/PET tumor init tx strat sb-mt: R91.1 R91.8 R59.1 Copies to: MD Rylan Vega MD Ward, Jeffrey S DO~ PET/CT FUSION IMAGING CLINICAL INFORMATION: Single pulmonary nodule. Abnormal lung findings. COMPARISON : CTA chest of 09/29/19 TECHNIQUE: Noncontrasted CT scan from the base of the skull to the upper thigh followed by PET imaging. Multiplanar PET/CT fusion images. The blood sugar is 109mg/dL. The F-18 FDG amount is 12.5mCi. FINDINGS: There are foci of hypermetabolism identified in the RIGHT subclavicular region and in the RIGHT paratracheal region superiorly and potentially with RIGHT supraclavicular region. These may be underwriting service representative of metastatic lymph nodes. There is focus of hypermetabolism in the RIGHT lung apical region. There is a corresponding spiculated lung nodule. This measures up to 12 mm. There is amorphous region of soft tissue density in the RIGHT paratracheal region and also in the RIGHT hilar region. There is associated hypermetabolism in this region. The maximal SUV value is 9. No abnormal chest wall hypermetabolic uptake identified. Normal accumulation of liver and renal collecting system identified. Normal physiologic uptake of the bowel noted. No abnormal hypermetabolic uptake seen. No abdominal mass or adenopathy identified. No soft tissue wall mass or fluid collection identified. No bony lesion seen. No abnormal hypermetabolic bone lesion seen. No abnormal hypermetabolic soft tissue uptake seen. Small region of hypermetabolism in the anal region identified. This is of uncertain clinical significance. PET/PET tumor init tx strat sb-mt IMPRESSION: Amorphous region of hypermetabolic soft tissue in the RIGHT paratracheal region and RIGHT hilar region concerning for malignancy. Foci of hypermetabolism in the superior RIGHT paratracheal region and also in the supra and subclavicular region on the RIGHT which suggest metastatic adenopathy. Hypermetabolic spiculated lymph node in the RIGHT apical region. This is also concerning for malignancy. Impression dictated by: Franklin Gomes M.D.10/31/2019 2:44 PM Dictation Location: [facility] The patient was seen by Dr. James and evaluated by Dr. Duval. 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 The patient does have evidence of hyponatremia. It is somewhat mild. He does have clubbing on physical exam. 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 - Surgical History Surgical History: Surgical History (Last Reviewed 11/20/19 @ 14:40 by Leoncio Kowalski MD) H/O vasectomy - Family History Family History: Family History (Last Reviewed 11/20/19 @ 14:40 by Leoncio Kowalski MD) Mother Colon cancer Other Diabetes mellitus, type 2 Hypertension - Social History Smoking Status: Current every day smoker Tobacco Type: cigarettes Substance Use Type: Alcohol, Marijuana Substance Abuse Comment: atleast a six pack per day Social History Comments: drinks a six pack per day Home Medications & Allergies Allergies sertraline [From Zoloft] Allergy (Verified 11/11/19 08:08) Swelling of Lip/Tongue/Throat Home Medications albuterol sulfate 2 puff INHALATION QID PRN 07/30/19 [History Confirmed 11/18/19] amlodipine 5 mg PO DAILY 07/30/19 [History Confirmed 11/18/19] buspirone 10 mg PO TID 30 Days #90 tab 08/04/19 [Rx Confirmed 11/18/19] escitalopram oxalate 5 mg PO DAILY 30 Days #30 tab 08/04/19 [Rx Confirmed 11/18/19] melatonin 3 mg PO QHS 30 Days #30 tab 08/04/19 [Rx Confirmed 11/18/19] quetiapine 100 mg PO QHS 30 Days #30 tab 08/04/19 [Rx Confirmed 11/18/19] prochlorperazine maleate [Compazine] 10 mg PO Q6H PRN #30 tab 11/20/19 [Rx] furosemide [Lasix] 20 mg PO DAILY #30 tab 11/25/19 [Rx] Objective - Height/Weight Height/Weight: Height 6 ft 0.24 in Weight 73.482 kg BSA for Today's Weight 1.94 - Vital Signs Vital Signs: 11/25/19 09:10 Temperature 97.9 F Pulse Rate [Right Brachial] 79 Respiratory Rate 20 Blood Pressure [Right Arm] 124/75 02 Sat by Pulse Oximetry 98 - Pain Anterior Chest Pain Intensity: 2 - Emotional Needs Assessment Emotional Needs Assessment: Emotional Needs Identified? Yes Emotional Needs Identified? Yes Distress Screening Total 3 Support System Spouse,Family Support System Spouse,Child/Children,Friend Expressed Feelings Anxiety,Stress Physical Exam Narrative: The patient is alert and oriented. No scleral icterus. Examination of the neckdoes not show any obvious lymph node enlargement. There is clubbing on physicalexam. The patient has significant tenderness in the right wrist area from a long history of trauma in this area. His lungs audibly with good air exchange. Neurological exam is grossly intact. Psychiatric exam shows a normal affect. There is very mild bilateral ankle edema, more on the left than the right. Thisis mild in general. I do not see any calf swelling. Results - Labs Labs: Diagram of Most Recent CBC and CMP 11/24/19 07:46 11/24/19 07:33 Labs - Last 7 Days 11/24/19 07:46: WBC 7.4, Corrected WBC 7.4, RBC 3.29 L, Hgb 10.8 L, Hct 32.2 L, MCV 97.8, MCH 32.8, MCHC 33.5, RDW 16.7 H, Plt Count 146 L, MPV 7.8, Neut % (Auto) 62.6, Lymph % (Auto) 28.7, [place] % (Auto) 6.5, Eos % (Auto) 1.5, Baso % (Auto) 0.7, Neut # (Auto) 4.6, Lymph # (Auto) 2.1, [place] # (Auto) 0.5, Eos # (Auto) 0.1, Baso # (Auto) 0.0, Nucleated RBC % (auto) 0.2 11/24/19 07:33: PHA Creatinine Clear [id number], Sodium 128 L, Potassium 3.7,Chloride 93 L, Carbon Dioxide 25.1, BUN 6 L, Creatinine 1.08, Est GFR ( Amer) > 60, Est GFR (Non-Af Amer) > 60, Glucose 127 H, Calcium 8.0 L, Total Bilirubin 3.2 H, Direct Bilirubin 1.7 H, Indirect Bilirubin 1.5, AST 106 H, ALT 103 H, Alkaline Phosphatase 306 H, Total Protein 5.6 L, Albumin 2.3 L, Globulin 3.3, Albumin/Globulin Ratio 0.7, Free T4 0.63, TSH 3rd Generation 1.24 11/21/19 13:20: COVID-19 PCR Interp N/A, COVID-19 (DEANA) Not detected 11/18/19 14:04: PHA Creatinine Clear [id number], Sodium 128 L, Potassium 4.8,Chloride 93 L, Carbon Dioxide 23.9, BUN 10, Creatinine 1.20, Est GFR ( Amer) > 60, Est GFR (Non-Af Amer) > 60, Glucose 122 H, Calcium 8.5, Total Bilirubin 3.0 H, AST 220 H, ALT 136 H, Alkaline Phosphatase 330 H, Total Protein5.9 L, Albumin 2.5 L, Globulin 3.4, Albumin/Globulin Ratio 0.7 11/18/19 14:04: WBC 7.3, Corrected WBC 7.3, RBC 3.67 L, Hgb 11.8 L, Hct 35.8 L, MCV 97.5, MCH 32.2, MCHC 33.0, RDW 17.1 H, Plt Count 199, MPV 7.5, Neut % (Auto)N/A, Lymph % (Auto) N/A, [place] % (Auto) N/A, Eos % (Auto) N/A, Baso % (Auto) N/A,Neut # (Auto) N/A, Lymph # (Auto) N/A, [place] # (Auto) N/A, Eos # (Auto) N/A, Baso# (Auto) N/A, Nucleated RBC % (auto) 0.6 H, Band Neutrophils % 2, Lymphocytes % 26, Monocytes % 8, Eosinophils % 1, Basophils % 1, Segmented Neutrophils 62, Platelet Estimate Normal, Plt Morphology Comment Normal, RBC Morphology N/A, Poikilocytosis Moderate, Anisocytosis Slight, Macrocytosis Slight, Target Cells Moderate Assessment and Plan (1) Small cell lung cancer proceed with cycle 1, day 2 infusiport this week see me in two weeks dose reduce etoposide for liver dysfunction (2) Edema lasix 20 mg/day - Time with Patient Coordination of Care & Counseling Time: Greater than 50% of time spent with patient was for coordination of care (as documented) and [id number] counseling of patient and/or family. Dictated By: George Ash MD DD/ 1100 Signed By: <Electronically signed by MD Geroge Ash> 11/25/19 1106 [facility] Work Phone: [phone] Consult note Author Leoncio Kowalski [facility] November 20, 2019 2:44pm Note Date/Time November 20, 2019 1:38p m [facility] [place] [address] Rad Onc Consult Note - OP Signed Patient: Kirill Echols MR#: [id number] : 1965 Acct:[id number] Age/Sex: 54 / M Type: REG RCR Copies to: MD Rylan Vega MD James E Fanning, MD~ HPI - Service Date/Time Date: 11/20/19 Time: 09:50 Diagnosis: 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 Chief Complaint: I am here for my radiation therapy treatments for lung cancer HPI: 54-year-old -[place]ong[place] gentleman history of smoking 40 pack years and moderate alcohol use had complaints of chest pain for last year and a half and has been seen by his physicians in the past. Recently, his chest pain got much worse and a CT scan of his chest showed paratracheal and hilar lymphadenopathy. He also had a PET CT scan which confirmed a hypermetabolic spiculated mass in the right apical region as well as right hilar and paratracheal lymphadenopathy. There was also involvement of the supra and subclavicular region on the right suggestive of metastatic lymphadenopathy. 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 He has been seen by Dr. Ash and hisport placement will be scheduled within next few days for planning his systemic chemotherapy. I have been asked to see him for concurrent radiation therapy treatment to the chest and prophylactic cranial radiation (patient still needs abrain scan to confirm that there is no evidence of metastases to the brain). Hehas chronic smoker's cough and he has lost about 10 pounds during last couple ofmonths. No complaints of headaches, nausea, neck lumps, hemoptysis, abdominal discomfort, urinary or bowel problems, leg swelling, motor or sensory changes. He has no complaints of fever, chills, night sweats etc. 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 - Surgical History Surgical History: Surgical History (Last Reviewed 11/20/19 @ 14:40 by Lenocio Kowalski MD) H/O vasectomy - Family History Family History: Family History (Last Reviewed 11/20/19 @ 14:40 by Leoncio Kowalski MD) Mother Colon cancer Other Diabetes mellitus, type 2 Hypertension - Social History Smoking Status: Current every day smoker Tobacco Type: cigarettes Substance Use Type: Alcohol, Marijuana Substance Abuse Comment: atleast a six pack per day Social History Comments: drinks a six pack per day Home Medications & Allergies Allergies sertraline [From Zoloft] Allergy (Verified 11/11/19 08:08) Swelling of Lip/Tongue/Throat Home Medications albuterol sulfate 2 puff INHALATION QID PRN 07/30/19 [History Confirmed 11/18/19] amlodipine 5 mg PO DAILY 07/30/19 [History Confirmed 11/18/19] buspirone 10 mg PO TID 30 Days #90 tab 08/04/19 [Rx Confirmed 11/18/19] escitalopram oxalate 5 mg PO DAILY 30 Days #30 tab 08/04/19 [Rx Confirmed 11/18/19] melatonin 3 mg PO QHS 30 Days #30 tab 08/04/19 [Rx Confirmed 11/18/19] quetiapine 100 mg PO QHS 30 Days #30 tab 08/04/19 [Rx Confirmed 11/18/19] prochlorperazine maleate [Compazine] 10 mg PO Q6H PRN #30 tab 11/20/19 [Rx] Subjective ROS: I reviewed the 12-point Review of Systems with the patient as per our standard questionnaire. Objective Height 6 ft 0.24 in Weight 68.2 kg Temp 98.6 F 11/20/19 08:48 Pulse 86 11/20/19 08:48 Resp 20 11/20/19 08:48 BP 108/65 11/20/19 08:48 Pulse Ox 99 11/20/19 08:48 Pain: 0/10 Emotional Needs Assessment: Emotional Needs Identified? Yes Distress Screening Total 3 Support System Significant Other Expressed Feelings Anxiety Karnofsky Performance Scale: 90%: Can perform normal activity, minor signs of disease Physical Exam: Physical examination today, is a thin, alert, oriented, pleasant black gentleman who does not appear to be in any acute distress. HEENT examination revealed no cranial neuropathy. No palpable neck lymphadenopathy. Lungs are clear to auscultation. Card examination is unremarkable. No spinal or paraspinal tenderness. Abdomen soft, nontender and there is no palpable mass or organomegaly. Rectal examination was not done. He has no leg edema. He remains neurologically stable including his motor, sensory and cerebellar functions. 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 His brain scan is pending and his port placement be done by Dr. Duval in early part of next week. I discussed this patient's management with Dr. Ash and he plans to initiate his first cycle of chemotherapy. Concurrently with a second cycle of chemotherapy, patient receiving radiation therapy treatments for 6 weeks. Pros and cons of radiotherapy were discussed with the patient in detail and informed consent has been signed today. Dr. Ash will let us know when patient is ready to start his radiation therapy to the second cycle of chemotherapy. Total Time Spent with Patient: Greater than 30 minutes More than 50% of time allotted to patient education, answering questions, and coordinating care. N.B: Voice-recognition software was used in the creation of this note. Efforts were made to detect and correct typographical and/or grammatical errors; please excuse them should you find any. Dictated By: Leoncio Kowalski MD DD/ 1337 Signed By: <Electronically signed by Leoncio Kowalski MD> 11/20/19 8957 [facility] Work Phone: [phone] Progress note Author George Ash [facility] November 20, 2019 11:12am Note Date/Time November 20, 2019 11:06 am [facility] [place] [address] Hem/Onc Follow Up Note - OP Signed Patient: Kirill Echols MR#: [id number] : 1965 Acct:[id number] Age/Sex: 54 / M Type: REG RCR Copies to: MD Rylan Vega MD Strack, Leanne K DO~ Subjective Date/Time of Service: Date of Service: 11/20/2019 Time of Service: 11:04 Chief Complaint: consult for radiation- genie feet swelling started 4 days ago, noappetite HPI: Mr. Echols presents in follow-up today November 20, 2019. He has seen radiation oncology and if radiation will be used, we will plan on starting on this the second cycle of chemotherapy. I want to get his treatment started as soon as possible. He will see Dr. Duval tomorrow for consideration of Liiqfl-b-Vadt. Chemotherapy education will be tomorrow November 20. My plan will be to start chemotherapy on November 23, this Sunday. Because of drug interactions, I will not prescribe Zofran for antiemetic therapy. I will prescribe Compazine. He will be getting head CT. This is a 54-year-old gentleman first seen by me November 18, 2019. His symptoms began in September when he presented with chest pain. CT of the chest showed paratracheal and hilar lymphadenopathy. A work-up with a PET scan showed the findings below: Patient: Kirill Echols MR#: [id number] : 1965 Acct:[id number] Age/Sex: 54 / M ADM Date: 0 Loc: Room: Type: [facility] Attending Dr: Varghese Duval MD Ordering Provider: Varghese Duval MD Date of Service: 10/31/19 PET/PET tumor init tx strat sb-mt: R91.1 R91.8 R59.1 Copies to: MD Rylan Vega MD Ward, Jeffrey S DO~ PET/CT FUSION IMAGING CLINICAL INFORMATION: Single pulmonary nodule. Abnormal lung findings. COMPARISON : CTA chest of 09/29/19 TECHNIQUE: Noncontrasted CT scan from the base of the skull to the upper thigh followed by PET imaging. Multiplanar PET/CT fusion images. The blood sugar is 109mg/dL. The F-18 FDG amount is 12.5mCi. FINDINGS: There are foci of hypermetabolism identified in the RIGHT subclavicular region and in the RIGHT paratracheal region superiorly and potentially with RIGHT supraclavicular region. These may be underwriting service representative of metastatic lymph nodes. There is focus of hypermetabolism in the RIGHT lung apical region. There is a corresponding spiculated lung nodule. This measures up to 12 mm. There is amorphous region of soft tissue density in the RIGHT paratracheal region and also in the RIGHT hilar region. There is associated hypermetabolism in this region. The maximal SUV value is 9. No abnormal chest wall hypermetabolic uptake identified. Normal accumulation of liver and renal collecting system identified. Normal physiologic uptake of the bowel noted. No abnormal hypermetabolic uptake seen. No abdominal mass or adenopathy identified. No soft tissue wall mass or fluid collection identified. No bony lesion seen. No abnormal hypermetabolic bone lesion seen. No abnormal hypermetabolic soft tissue uptake seen. Small region of hypermetabolism in the anal region identified. This is of uncertain clinical significance. PET/PET tumor init tx strat sb-mt IMPRESSION: Amorphous region of hypermetabolic soft tissue in the RIGHT paratracheal region and RIGHT hilar region concerning for malignancy. Foci of hypermetabolism in the superior RIGHT paratracheal region and also in the supra and subclavicular region on the RIGHT which suggest metastatic adenopathy. Hypermetabolic spiculated lymph node in the RIGHT apical region. This is also concerning for malignancy. Impression dictated by: Franklin Gomes M.D.10/31/2019 2:44 PM Dictation Location: [facility] The patient was seen by Dr. James and evaluated by Dr. Duval. 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 The patient does have evidence of hyponatremia. It is somewhat mild. He does have clubbing on physical exam. 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 - Surgical History Surgical History: Surgical History (Last Reviewed 11/18/19 @ 12:53 by Marilu Ceja RN) H/O vasectomy - Family History Family History: Family History (Last Updated 11/18/19 @ 13:02 by Marilu Ceja RN) Mother Colon cancer Other Diabetes mellitus, type 2 Hypertension - Social History Smoking Status: Current every day smoker Tobacco Type: cigarettes Substance Use Type: Alcohol, Marijuana Substance Abuse Comment: atleast a six pack per day Social History Comments: drinks a six pack per day Home Medications & Allergies Allergies sertraline [From Zoloft] Allergy (Verified 11/11/19 08:08) Swelling of Lip/Tongue/Throat Home Medications albuterol sulfate 2 puff INHALATION QID PRN 07/30/19 [History Confirmed 11/18/19] amlodipine 5 mg PO DAILY 07/30/19 [History Confirmed 11/18/19] buspirone 10 mg PO TID 30 Days #90 tab 08/04/19 [Rx Confirmed 11/18/19] escitalopram oxalate 5 mg PO DAILY 30 Days #30 tab 08/04/19 [Rx Confirmed 11/18/19] melatonin 3 mg PO QHS 30 Days #30 tab 08/04/19 [Rx Confirmed 11/18/19] quetiapine 100 mg PO QHS 30 Days #30 tab 08/04/19 [Rx Confirmed 11/18/19] prochlorperazine maleate [Compazine] 10 mg PO Q6H PRN #30 tab 11/20/19 [Rx] Objective - Height/Weight Height/Weight: Height 6 ft 0.24 in Weight 68.2 kg - Vital Signs Vital Signs: 11/20/19 08:48 Temperature 98.6 F Pulse Rate [Right Brachial] 86 Respiratory Rate 20 Blood Pressure [Right Arm] 108/65 02 Sat by Pulse Oximetry 99 - Pain Anterior Chest Pain Intensity: 2 - Emotional Needs Assessment Emotional Needs Assessment: Emotional Needs Identified? Yes Distress Screening Total 3 Support System Significant Other Expressed Feelings Anxiety Physical Exam Narrative: The patient is alert and oriented. No scleral icterus. Examination of the neckdoes not show any obvious lymph node enlargement. There is clubbing on physicalexam. The patient has significant tenderness in the right wrist area from a long history of trauma in this area. His lungs audibly with good air exchange. Neurological exam is grossly intact. Psychiatric exam shows a normal affect. Results - Labs Labs: Diagram of Most Recent CBC and CMP 11/18/19 14:04 11/18/19 14:04 Labs - Last 7 Days 11/18/19 14:04: PHA Creatinine Clear [id number], Sodium 128 L, Potassium 4.8,Chloride 93 L, Carbon Dioxide 23.9, BUN 10, Creatinine 1.20, Est GFR ( Amer) > 60, Est GFR (Non-Af Amer) > 60, Glucose 122 H, Calcium 8.5, Total Bilirubin 3.0 H, AST 220 H, ALT 136 H, Alkaline Phosphatase 330 H, Total Protein5.9 L, Albumin 2.5 L, Globulin 3.4, Albumin/Globulin Ratio 0.7 11/18/19 14:04: WBC 7.3, Corrected WBC 7.3, RBC 3.67 L, Hgb 11.8 L, Hct 35.8 L, MCV 97.5, MCH 32.2, MCHC 33.0, RDW 17.1 H, Plt Count 199, MPV 7.5, Neut % (Auto)N/A, Lymph % (Auto) N/A, [place] % (Auto) N/A, Eos % (Auto) N/A, Baso % (Auto) N/A,Neut # (Auto) N/A, Lymph # (Auto) N/A, [place] # (Auto) N/A, Eos # (Auto) N/A, Baso# (Auto) N/A, Nucleated RBC % (auto) 0.6 H, Band Neutrophils % 2, Lymphocytes % 26, Monocytes % 8, Eosinophils % 1, Basophils % 1, Segmented Neutrophils 62, Platelet Estimate Normal, Plt Morphology Comment Normal, RBC Morphology N/A, Poikilocytosis Moderate, Anisocytosis Slight, Macrocytosis Slight, Target Cells Moderate Assessment and Plan (1) Small cell lung cancer The patient will be seen for Cigooh-h-Znka tomorrow. Head CT has been ordered and is pending. Has seen radiation oncology today and the plan will be to start radiation with second cycle of chemotherapy. We will recommend carboplatin/etoposide/atezolizumab to start Sunday, November 24, 2019. Side effects, risk, and complications were reviewed. Informed consent was obtained. I will see him on day 2 of treatment on November 24. - Time with Patient Coordination of Care & Counseling Time: Greater than 50% of time spent with patient was for coordination of care (as documented) and [id number] counseling of patient and/or family. Dictated By: George Ash MD DD/ 1104 Signed By: <Electronically signed by MD George Ash> 11/20/19 1112 [facility] Work Phone: [phone] Consult note Author George Ash [facility] November 18, 2019 2:02pm Note Date/Time November 18, 2019 1:50p m [facility] [place] [address] Hem/Onc Consult Note - OP Signed Patient: Kirill Echols MR#: [id number] : 1965 Acct:[id number] Age/Sex: 54 / M Type: REG RCR Copies to: MD Rylan Vega MD Strack, Leanne K DO~ HPI Date/Time of Service: Date of Service: 11/18/2019 Time of Service: 13:49 Referring Provider/PCP: Referring Provider: Varghese Duval MD PCP: Rylan Andrea MD - History of Present Illness Reason for Consultation: Small cell lung cancer Chief Complaint: New patient visit for small cell lung cancer. HPI: This is a 54-year-old gentleman who symptoms began in September when he presented withchest pain. CT of the chest showed paratracheal and hilar lymphadenopathy. A work-up with a PET scan showed the findings below: Patient: Kirill Echols MR#: [id number] : 1965 Acct:[id number] Age/Sex: 54 / M ADM Date: 0 Loc: Room: Type: [facility] Attending Dr: Varghese Duval MD Ordering Provider: Varghese Duval MD Date of Service: 10/31/19 PET/PET tumor init tx strat sb-mt: R91.1 R91.8 R59.1 Copies to: MD Rylan Vega MD Ward, Jeffrey S DO~ PET/CT FUSION IMAGING CLINICAL INFORMATION: Single pulmonary nodule. Abnormal lung findings. COMPARISON : CTA chest of 09/29/19 TECHNIQUE: Noncontrasted CT scan from the base of the skull to the upper thigh followed by PET imaging. Multiplanar PET/CT fusion images. The blood sugar is 109mg/dL. The F-18 FDG amount is 12.5mCi. FINDINGS: There are foci of hypermetabolism identified in the RIGHT subclavicular region and in the RIGHT paratracheal region superiorly and potentially with RIGHT supraclavicular region. These may be underwriting service representative of metastatic lymph nodes. There is focus of hypermetabolism in the RIGHT lung apical region. There is a corresponding spiculated lung nodule. This measures up to 12 mm. There is amorphous region of soft tissue density in the RIGHT paratracheal region and also in the RIGHT hilar region. There is associated hypermetabolism in this region. The maximal SUV value is 9. No abnormal chest wall hypermetabolic uptake identified. Normal accumulation of liver and renal collecting system identified. Normal physiologic uptake of the bowel noted. No abnormal hypermetabolic uptake seen. No abdominal mass or adenopathy identified. No soft tissue wall mass or fluid collection identified. No bony lesion seen. No abnormal hypermetabolic bone lesion seen. No abnormal hypermetabolic soft tissue uptake seen. Small region of hypermetabolism in the anal region identified. This is of uncertain clinical significance. PET/PET tumor init tx strat sb-mt IMPRESSION: Amorphous region of hypermetabolic soft tissue in the RIGHT paratracheal region and RIGHT hilar region concerning for malignancy. Foci of hypermetabolism in the superior RIGHT paratracheal region and also in the supra and subclavicular region on the RIGHT which suggest metastatic adenopathy. Hypermetabolic spiculated lymph node in the RIGHT apical region. This is also concerning for malignancy. Impression dictated by: Franklin Gomes M.D.10/31/2019 2:44 PM Dictation Location: [facility] The patient was seen by Dr. James and evaluated by Dr. Duval. 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 I was called by Dr. Duval today 11/18/2019 and arrange to see the patient immediately. The patient does have evidence of hyponatremia. It is somewhat mild. He does have clubbing on physical exam. 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 - Surgical History Surgical History: Surgical History (Last Reviewed 11/18/19 @ 12:53 by Marilu Ceja RN) H/O vasectomy - Family History Family History: Family History (Last Updated 11/18/19 @ 13:02 by Marilu Ceja, RN) Mother Colon cancer Other Diabetes mellitus, type 2 Hypertension - Social History Smoking Status: Current every day smoker Tobacco Type: cigarettes Substance Use Type: Alcohol, Marijuana Substance Abuse Comment: atleast a six pack per day Social History Comments: drinks a six pack per day Home Medications & Allergies Allergies sertraline [From Zoloft] Allergy (Verified 11/11/19 08:08) Swelling of Lip/Tongue/Throat Home Medications albuterol sulfate 2 puff INHALATION QID PRN 07/30/19 [History Confirmed 11/18/19] amlodipine 5 mg PO DAILY 07/30/19 [History Confirmed 11/18/19] buspirone 10 mg PO TID 30 Days #90 tab 08/04/19 [Rx Confirmed 11/18/19] escitalopram oxalate 5 mg PO DAILY 30 Days #30 tab 08/04/19 [Rx Confirmed 11/18/19] melatonin 3 mg PO QHS 30 Days #30 tab 08/04/19 [Rx Confirmed 11/18/19] quetiapine 100 mg PO QHS 30 Days #30 tab 08/04/19 [Rx Confirmed 11/18/19] Objective - Height/Weight Height/Weight: Height 6 ft 0.24 in Weight 68.9 kg - Vital Signs Vital Signs: 11/18/19 12:58 Temperature 98.7 F Pulse Rate [Right Brachial] 89 Respiratory Rate 20 Blood Pressure [Right Arm] 107/52 L 02 Sat by Pulse Oximetry 98 - Emotional Needs Assessment Emotional Needs Assessment: Emotional Needs Identified? Yes Distress Screening Total 10 Ineffective Support System fear of new diagnosis Comment Physical Exam Narrative: The patient is alert and oriented. No scleral icterus. Examination of the neckdoes not show any obvious lymph node enlargement. There is clubbing on physicalexam. The patient has significant tenderness in the right wrist area from a long history of trauma in this area. His lungs audibly with good air exchange. Neurological exam is grossly intact. Psychiatric exam shows a normal affect. Assessment and Plan (1) Small cell lung cancer The patient is presenting with small cell neuroendocrine lung cancer with supraclavicular involvement, mediastinal and hilar involvement. It is confined to the chest. I see no evidence on PET scan of distant metastasis. At this time we will refer him for immediate head CT. He will need Pgzrmm-t-Pkov placement and I will refer him to Dr. Duval for this. The patient has fairly limited disease in the chest and mediastinum and may very well be a candidate for combined modality therapy with chemotherapy and radiation. I will refer himto radiation oncology here at [facility]. We will recommend to him immediate chemotherapy with carboplatin, etoposide and atezolizumab. We will set him up with chemotherapy education as soon as possible and start as soon as possible. We will see him later this week for further discussion with regard to diagnosis and treatment planning. - Time with Patient Coordination of Care & Counseling Time: Greater than 50% of time spent with patient was for coordination of care (as documented) and jkol-kb-[id number] counseling of patient and/or family. Dictated By: George Ash MD DD/ [id number] Signed By: <Electronically signed by MD George Ash> 11/18/19 1402 [facility] Work Phone: Evaluation noteNo assessment information available [facility] Work Phone: evaluation note* Diagnosis Onset Date Resolution Status Anemia due to chemotherapy a cute Anxiety acute Cancer-related pain acute Chest pain acute Diarrhea acute Edema acute Joint pain acute Neck pain acute Small cell lung cancer chron ic [facility] Work Phone: Evaluation note* Diagnosis Onset Date Resolution Status Anemia due to chemotherapy a cute Anxiety acute Cancer-related pain acute Chest pain acute Diarrhea acute Edema acute Joint pain acute Neck pain acute Small cell lung cancer chron ic Chest pain acute [facility] Work Phone: evaluation note* Diagnosis Onset Date Resolution Status Chest pain acute Small cell lung cancer acute Anemia due to chemotherapy a cute Anxiety acute Cancer-related pain acute Chest pain acute Diarrhea acute Edema acute Joint pain acute Neck pain acute Small cell lung cancer chron ic [facility] Work Phone: evaluation note* Diagnosis Onset Date Resolution Status Chest pain acute Small cell lung cancer acute Anemia due to chemotherapy a cute Anxiety acute Cancer-related pain acute Chest pain acute Diarrhea acute Edema acute Joint pain acute Neck pain acute Small cell lung cancer chron ic Small cell lung cancer acute [facility] Work Phone: evaluation note* Diagnosis Onset Date Resolution Status Chest pain resolved Small cell lung cancer resol dannie Small cell lung cancer resol dannie Chronic hyponatremia acute Recurrent right pleural effusion acute Tachycardia acute COPD (chronic obstructive pulmonary disease) chronic Small cell lung cancer chron ic Cancer-related pain acute Joint pain acute Small cell lung cancer chron ic Anxiety resolved Chest pain resolved Diarrhea resolved Edema resolved Neck pain resolved [facility] Work Phone: Evaluation note* Diagnosis Onset Date Resolution Status Cancer-related pain acute Chronic hyponatremia acute Joint pain acute Shortness of breath acute Weight loss acute Small cell lung cancer chron ic Anxiety resolved Chest pain resolved Diarrhea resolved Edema resolved Neck pain resolved [facility] Work Phone: Evaluation note* Diagnosis Onset Date Resolution Status Cancer-related pain acute Chronic hyponatremia acute Joint pain acute Shortness of breath acute Weight loss acute Small cell lung cancer chron ic Anxiety resolved Chest pain resolved Diarrhea resolved Edema resolved Neck pain resolved Small cell lung cancer chron [facility] Work Phone: History and physical note Author Tez Irene [facility] April 10, 2022 3:12pm Note Date/Time April 10, 2022 3:12pm [facility] [address] [place] [address] Hospitalist H&P Signed Patient: Kirill Echols MR#: [id number] : 1965 Acct:[id number] Age/Sex: 56 / M Adm Date: 2 Loc: Room: [address] [place] [address] Type: ADM INOo Attending Dr: Tez Irene MD Copies to: MD Rylan Toledo MD~ HPI DATE OF EXAMINATION: 04/10/22 HISTORY OF PRESENT ILLNESS: Patient is a 56-year-old male, who presents today to the emergency department complaining of left-sided chest pain. He states that he has not experienced similar symptoms before, however, in review of his medical record, it appears that he had indeed experienced almost identical left-sided chest discomfort for a number of months even years before. He had been evaluated thoroughly, including with heart catheterization in August of this year. This was negative. Patient states that he has been unwell for the last few days. He has been tired, with low energy level, he cannot walk to the bathroom. He feels pressured over the left lower side of his chest. He has more cough than normal,with some mccray sputum production, but no fevers or chills. He has no upper respiratory tract symptoms, but his appetite has been somewhat decreased. He has a notable history of small cell lung cancer, which was treatedBy chemotherapy with carboplatin and etoposide, and radiation. He also received atezolizumab. He underwent imaging of chest abdomen pelvis today by his oncologist, sounds like for routine surveillance. He presented to the emergencydepartment after the study, with the above complaints. Past medical history Limited stage small cell lung cancer, status post chemoradiation with carboplatin, etoposide, atezolizumab. COPD History of peptic ulcer disease Hypertension Neuropathy right hand Pancreatitis Anxiety disorder and depression 10 point review of systems negative except as noted Physical exam Patient was seen in the emergency department Patient appears comfortable, in no distress. Skin is normally colored, no icterus, cyanosis or edema noted. Joints are without any effusion. Abdomen is soft, benign, no rebound or rigidity. No organomegaly. Bowel sounds present. Heart regular, no gallop, rub or JVD. Lungs are diminished bilaterally. Palpation of the chest wall, particularly theleft anterolateral aspect, is tender. The tenderness appears to be localized along the left sternocostal joints. However, there is also some hyperesthesia of the skin. No lesions to suggest shingles are present. Ultrasonographic examination shows no pleural effusions on the left side. Heart could properly visualized due to COPD. HENT normal Neurological: Patient is awake. Cognition is normal. Cranial nerves are intact. Power is symmetric all extremities, with no focal motor deficit identified on a cursory exam. Psych: affect is normal. Labs imaging reviewed Assessment and plan 1. Left-sided chest pain. Etiology of this is uncertain. I suspect a musculoskeletal, possibly neuro, component. There is exquisite tenderness to palpation of the sternocostal joints. This pain is to a large extent chronic in nature, with acute exacerbations. CT imaging was reviewed, and there is no evidence of any infectious process in the chest wall. I will rediscuss this with the radiologist. Wewill observe the patient in the hospital overnight. Symptomatic treatment. Recheck troponins in the morning. Telemetry. Very low suspicion for cardiopulmonary etiology. 2. Increasing right-sided pleural effusion. This could be malignant. However,I do not think that it is responsible of his symptoms on the left side. I will speak with his oncologist to see whether aspiration of some fluid to be sent forpathology is felt to be necessary. DVT prophylaxis with Lovenox Continue treatment of his other chronic medical comorbidities with home regimen Limited stage small cell lung cancer, status post chemoradiation with carboplatin, etoposide, atezolizumab. COPD History of peptic ulcer disease Hypertension Neuropathy right hand Pancreatitis Anxiety disorder and depression [facility] Vaccinated for COVID-19?: Yes Medical History Anemia Anxiety COPD (chronic obstructive pulmonary disease) Depression Emphysema lung H/O peptic ulcer Hypertension Insomnia Neuropathy of right hand Secondary to lacerations years ago. NSTEMI (non-ST elevated myocardial infarction) On home oxygen therapy 4 Pancreatitis Port-A-Cath in place Small cell lung cancer s/p chemo & radiation. undergoing Imunnotherapy TOS (thoracic outlet syndrome) Surgical History H/O vasectomy H/O wrist surgery Right side, 2005 Hx of hernia repair Family History Mother Colon cancer Father Prostate cancer Other Diabetes mellitus, type 2 Hypertension Social History Smoking Status: Former smoker Tobacco Type: cigarettes Substance Use Type: None Substance Abuse Comment: social Meds Medications and Allergies Allergies lisinopril Allergy (Verified 04/10/22 09:54) Swelling of Lip/Tongue/Throat sertraline [From Zoloft] Allergy (Verified 04/10/22 09:54) Swelling of Lip/Tongue/Throat Home Medications amlodipine 5 mg tablet 5 mg PO DAILY 09/01/20 [History Confirmed 04/10/22] quetiapine 100 mg tablet 100 mg PO QHS 04/05/21 [History Confirmed 04/10/22] aspirin 81 mg tablet,delayed release 81 mg PO DAILY 09/09/21 [History Confirmed 04/10/22] fluticasone 250 mcg-salmeterol 50 mcg/dose blistr powdr for inhalation (Advair Diskus) 1 inh inhalation BID 09/09/21 [History Confirmed 04/10/22] melatonin 3 mg tablet 3 mg PO HS PRN Insomnia 04/10/22 [History Confirmed 04/10/22] Exam Physical Exam Vital Signs: Temp Pulse Resp BP Pulse Ox O2 Del Method 97.3 F L 101 H 20 142/86 H 97 Room Air 04/10/22 14:15 04/10/22 14:15 04/10/22 14:15 04/10/22 14:15 04/10/22 14:15 04/10/22 14:44 Results Lab Results Labs: Laboratory Last Values Corrected WBC 6.1 X10E3/uL (4.1-10.5) 04/10/22 10:20 Uncorrected WBC Count 6.1 x10E3/uL (4.5-11.0) 04/10/22 10:20 RBC 4.61 x10E6/uL (3.90-5.60) 04/10/22 10:20 Hgb 15.2 g/dL (13.0-17.0) 04/10/22 10:20 Hct 44.7 % (38.8-50.0) 04/10/22 10:20 MCV 96.9 fl (83.5-101) 04/10/22 10:20 MCH 32.9 pg (27.5-35.2) 04/10/22 10:20 MCHC 33.9 g/dL (32.5-35.6) 04/10/22 10:20 RDW 14.1 % (12.0-14.8) 04/10/22 10:20 Plt Count 242 x10E3/uL (150-450) 04/10/22 10:20 MPV 7.0 fl (6.6-10.1) 04/10/22 10:20 Neut % (Auto) 73.4 % (.) 04/10/22 10:20 Lymph % (Auto) 14.2 % (.) 04/10/22 10:20 [place] % (Auto) 9.9 % (.) 04/10/22 10:20 Eos % (Auto) 1.5 % (.) 04/10/22 10:20 Baso % (Auto) 1.0 % (.) 04/10/22 10:20 Neut # (Auto) 4.5 x10E3/uL (1.8-7.7) 04/10/22 10:20 Lymph # (Auto) 0.9 x10E3/uL (1.00-4.8) L 04/10/22 10:20 [place] # (Auto) 0.6 x10E3/uL (0.0-0.8) 04/10/22 10:20 Eos # (Auto) 0.1 x10E3/uL (0.0-0.45) 04/10/22 10:20 Baso # (Auto) 0.1 x10E3/uL (0.0-0.2) 04/10/22 10:20 Nucleated RBC % (auto) 0.1 % (0-0.5) 04/10/22 10:20 D-Dimer Quant (PE/DVT) 529 ng/mL (0-243) H 04/10/22 10:20 PHA Creatinine Clear 92.25 04/10/22 10:20 Sodium 130 mmol/L (136-146) L 04/10/22 10:20 Potassium 4.2 mmol/L (3.5-5.1) 04/10/22 10:20 Chloride 95 mmol/L (95-114) 04/10/22 10:20 Carbon Dioxide 23.4 mmol/L (22.0-30.0) 04/10/22 10:20 Anion Gap 15.8 mEq/L (6.0-15.0) H 04/10/22 10:20 BUN 7 mg/dL (9-23) L 04/10/22 10:20 Creatinine 0.86 mg/dL (0.64-1.27) 04/10/22 10:20 Est GFR ( Amer) > 60 mL/Min 04/10/22 10:20 Est GFR (Non-Af Amer) > 60 mL/Min 04/10/22 10:20 Glucose 75 mg/dL (70-100) 04/10/22 10:20 Calcium 8.5 mg/dL (8.2-10.2) 04/10/22 10:20 Total Bilirubin 0.6 mg/dL (0.3-1.2) 04/10/22 10:20 AST 19 U/L (10-42) 04/10/22 10:20 ALT 13 U/L (10-60) 04/10/22 10:20 Alkaline Phosphatase 127 U/L (32-92) H 04/10/22 10:20 Troponin I High Sens 5 pg/mL (0-20) 04/10/22 12:30 B-Natriuretic Peptide 19.0 pg/mL (5-100) 04/10/22 10:20 Total Protein 6.4 gm/dL (6.1-7.9) 04/10/22 10:20 Albumin 3.3 gm/dL (3.2-5.5) 04/10/22 10:20 Globulin 3.1 gm/dL 04/10/22 10:20 Albumin/Globulin Ratio 1.1 04/10/22 10:20 Documented By: Tez Irene MD 04/10/22 1505 Signed By: <Electronically signed by Tez Irene MD> 04/10/22 1513 [facility] Work Phone: History general Narrative - Reported* Type Description Date Medical History COPD Medical History anxiety Medical History HTN Medical History Lung CA Surgical History Vasectomy Surgical History Right wrist surgery 2006 Surgical History Hernia repair Hospitalization History Related to [employer] Other Hisrsft general Narrative - Reported* Type Description Date Medical History COPD Medical History anxiety Medical History HTN Medical History Lung CA, small cell remission Surgical History Vasectomy Surgical History Right wrist surgery 2005 Surgical History Hernia repair Hospitalization History Related to [employer] Other Hospital Discharge instructionsAmbulatory Orders* Initiate Home Health Time Frame: 1 Day, Location: Determined By Patient [facility] Work Phone: Hospital Discharge instructionsAmbulatory Orders* Initiate Home Health Time Frame: 1 Day, Location: Determined By Patient * Oncology Histology Time Frame: 10/03/22, Location: Determined By Patient * Oncology Histology Time Frame: 10/17/22, Location: Determined By Patient * Oncology Histology Time Frame: 10/10/22, Location: Determined By Patient [facility] Work Phone: Progress note Author Estela Varma [facility] February 27, 2022 2:56pm Note Date/Time February 27, 2022 2 :51pm [facility] [place] [address] Hem/Onc Follow Up Note - OP Signed Patient: Kirill Echols MR#: [id number] : 1965 Acct:[id number] Age/Sex: 56 / M Type: REG RCR Copies to: MD Rylan Vega MD~ Date of Service: 02/27/2022 Time of Service: 14:50 - Assessment & Plan (1) Small cell lung cancer Plan: Limited stage small cell lung cancer, status post concurrent chemoradiation withcarboplatin/etoposide, CR after 6 cycles of carboplatin, etoposide and atezolizumab. He did not complete a year of maintenance atezolizumab, stopped for patient preference. Was tolerating well with some diarrhea Concerning adenopathy is relatively small on imaging in August 2021. Follow-up PET/CT in August 2021 shows no evidence of active malignancy. chest pain, chronic but worse recently. He has been communicating with Dr. Andrea and has cardiac work-up ensuing. (2) Chest pain Follow Up Instructions: f/u in about [address] chest abd pelvis with contrast. cbc, cmp, cea tsh prior to f/u. - History of Present Illness Chief Complaint: Patient is here for a 6 month follow up with imaging for review. No concerns voiced. HPI: 54-year-old -Mongolian gentleman history of smoking 40 pack years and moderate alcohol use had complaints of chest pain for last year and a half and has been seen by his physicians in the past. Recently, his chest pain got much worse and a CT scan of his chest showed paratracheal and hilar lymphadenopathy. He also had a PET CT scan which confirmed a hypermetabolic spiculated mass in the right apical region as well as right hilar and paratracheal lymphadenopathy. There was also involvement of the supra and subclavicular region on the right suggestive of metastatic lymphadenopathy. 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 He received cycle 1 carboplatin and etoposide for small cell neuroendocrine lungcancer on November 24, 2019 He was started on chemotherapy carbo etoposide and atezolizumab and finished his6 cycle of chemotherapy March 08, 2020. About 50% dose reduction under direction of Dr. Ash. Continued atezolizumab through Jun 2020. In Mar 2021. CT brain, chest abdomen and pelvis are negative for recurrence. 08/22/[address] imaging from 08/18/21 notes COMPARISON: 04/01/2021. Increasing subcarinal and predominantly right hilar soft tissue prominence suggesting disease recurrence. There is a new small right-sided pleural effusion. Emphysematous changes are noted with linear scarring or atelectasis, as above. No acute intra-abdominal pathology or evidence of new intra-abdominal metastaticdisease. My own personal review of these images, not overwhelming for recurrence. He lives alone in [place]. His children live in [place]. His left him 8 months ago and he is very upset. He has been feeling increasing short of breath and fatigue. Also notes a brick sitting on his chest sensation. He sleeps sitting up with his feet on the table. He notes a sharp pain recurring, previously this had got mostly better. Not eating for the last few months. He notes depression for the last two years is pretty severe. 09/05/[address] Andrea. had a pet/ct on 09/02 notes FINDINGS: No hypermetabolic activity suspicious for malignancy is identified in the neck, chest, abdomen, or pelvis. Specifically, no abnormal uptake is seen in the subcarinal or right hilar regions. Laryngeal activity is presumably physiologic. There is physiologic activity in the heart and urinary tract. Otherwise, there is an Sszewg-c-Iqgy on the left. The lungs demonstrate emphysematous changes. There is mild dependent subpleural atelectasis on the right. There are very small pericardial and right pleural effusions. There are calcifications in the head of the pancreas consistent with chronic pancreatitis. The wall of the urinary bladder appears mildly thickened, however, this finding is likely related to underdistention. IMPRESSION: No hypermetabolic activity suspicious for malignancy. His pain in chest persists. He describes it as a chest pain heaviness/numbness. like a tip of a needle that pokes just to the left of her sternum. It limits his quality of life. He has not had a stress test in a while. He has upcoming workup for his heart through Dr. Andrea soon. He is considering moving back down to [facility] where he is from. 02/27/22 he didnt f/u after his cts in december. ct c/a/p from 01/03/22 1. Increasing right-sided pleural effusion since the prior study. Metastatic effusion cannot be excluded. 2. Stable 9 mm indeterminate lesion involving the left lobe of the liver. No new liver lesions. Attention on follow-up is recommended. he still gets the pain in his chest when he becomes active. ALthough today he describes as a pin at the end of a needle is red hot in mid lower back, he states where they did the radiation. He admits it is dramatically improved frompreviously. He does note he is more short of breath on exertion. He quit smoking 2 years ago. - Physical Exam ECOG PS: 0 General : patient is alert and oriented to person place and time, no acute distress. Neck: no JVD or thyromegaly. Lymph: no cervical, supraclavicular, axillary adenopathy. Heart: regular rate and rhythm no murmurs rubs or gallops. Chest pain is not reproducible. Abdomen: soft nontender nondistended, no hepatosplenomegaly. Lungs: cta bl, no wheezes, rales, rhonchi Extremities: no clubbing cyanosis. . - Time with Patient Coordination of Care & Counseling Time: Greater than 50% of time spent with patient was for coordination of care (as documented) and [id number] counseling of patient and/or family. [facility] - Medical History Medical History: Medical History (Last Reviewed 08/04/20 @ 10:40 by Socorro Frias RN) Anemia Anxiety COPD (chronic obstructive pulmonary disease) Depression Emphysema lung H/O peptic ulcer Hypertension Insomnia Neuropathy of right hand Secondary to lacerations years ago. NSTEMI (non-ST elevated myocardial infarction) On home oxygen therapy 4 Pancreatitis Port-A-Cath in place Small cell lung cancer s/p chemo & radiation. undergoing Imunnotherapy TOS (thoracic outlet syndrome) - Surgical History Surgical History: Surgical History (Last Reviewed 08/04/20 @ 10:40 by Socorro Frias RN) H/O vasectomy H/O wrist surgery Right side, 2005 Hx of hernia repair - Family History Family History: Family History (Last Reviewed 07/25/20 @ 13:25 by Brad Lockett PA-C) Mother Colon cancer Father Prostate cancer Other Diabetes mellitus, type 2 Hypertension - Social History Smoking Status: Former smoker Tobacco Type: cigarettes Substance Use Type: None Substance Abuse Comment: script for marijuana Additional Data - Additional Objective Data Height/Weight: Height 6 ft Weight 70.352 kg BSA for Today's Weight 1.92 Vital Signs: 02/27/22 14:35 Temperature 97.7 F Pulse Rate [Right Brachial] 80 Respiratory Rate 20 Blood Pressure [Right Arm] 138/90 02 Sat by Pulse Oximetry 99 Oxygen Delivery Method Room Air Distress Screening: RN Distress Screening Start: 11/18/19 12:21 Freq: Status: Complete Protocol: Document 11/18/19 12:56 AA (Rec: 11/18/19 12:58 AA [id number]) Distress Screening Distress Score: 10 Worst distress/worry Emotional Concerns Feeling uncertain about the future Distress Screening Total 10 Distress score of 4 or more discussed Yes with patient? RN Distress Screening Start: 11/24/19 08:55 Freq: Q30D Status: Active Protocol: Document 09/14/21 14:56 KB (Rec: 09/14/21 14:59 KB [id number]) Distress Screening Distress score of 4 or more discussed Yes with patient? Distress screening follow up: Spoke with patient via phone. Patient is doing ok at this time. Recently had a heart cath which was negative. He is happpy that his scans are good. Dr. Perez is working on getting him into [facility]. - Lab Results Diagram of Most Recent CBC and CMP 09/02/21 07:35 01/03/22 10:13 - Home Medications and Allergies Allergies/Adverse Reactions: Allergies lisinopril Allergy (Verified 02/27/22 14:34) Swelling of Lip/Tongue/Throat sertraline [From Zoloft] Allergy (Verified 02/27/22 14:34) Swelling of Lip/Tongue/Throat Home Medications: Home Medications amlodipine 5 mg tablet 5 mg PO DAILY 09/01/20 [History Confirmed 02/27/22] quetiapine 100 mg tablet 100 mg PO QHS 04/05/21 [History Confirmed 02/27/22] aspirin 81 mg tablet,delayed release 81 mg PO DAILY 09/09/21 [History Confirmed 02/27/22] fluticasone 250 mcg-salmeterol 50 mcg/dose blistr powdr for inhalation (Advair Diskus) 1 inh inhalation BID 09/09/21 [History Confirmed 02/27/22] metoprolol tartrate 25 mg tablet 12.5 mg PO BID 09/09/21 [History Confirmed 02/27/22] Dictated By: Estela Varma II, DO DD/ 1450 Signed By: <Electronically signed by Estela Varma II, DO> 02/27/22 1456 [facility] Work Phone: Progress note Author Estela Varma [facility] April 14, 2022 12:02pm Note Date/Time April 14, 2022 1 1:50am [facility] [place] [address] Hem/Onc Follow Up Note - OP Signed Patient: Kirill Echols MR#: [id number] : 1965 Acct:[id number] Age/Sex: 56 / M Type: REG RCR Copies to: MD Rylan Vega MD~ Date of Service: 04/14/2022 Time of Service: 11:49 - Assessment & Plan (1) Small cell lung cancer Plan: Limited stage small cell lung cancer, status post concurrent chemoradiation withcarboplatin/etoposide, CR after 6 cycles of carboplatin, etoposide and atezolizumab. He did not complete a year of maintenance atezolizumab, stopped for patient preference. Was tolerating well with some diarrhea PET/CT in August 2021 shows no evidence of active malignancy. Follow-up imagingin March 2022 with no evidence of disease but enlarging right-sided pleural effusion.. He has had longstanding chronic L sided chest discomfort. He has had a work-up as an outpatient recently from his PCP. He has left-sided chest pain but his pain is very much reproducible. Also he has enlarging (contralateral) right-sided pleural effusion. Dr Irene did diagnostic pleura aspiration was negative cytology mar 2022. fluid was EXUDATIVE suggestive of malignancy. ct c/a/p 04/10/22 no obvious evidence cancer recurrence. for sob will attempt thoracentesis, i doubt will help him dramatically but wortha try also will send cytology again. (2) Chest pain Follow Up Instructions: refer to pulmonary for pleural fluid. set up for therapeutic throacentesis in IR> f/u with me in a month. - History of Present Illness Chief Complaint: Patient is here for a 6 week follow up with labs and scans for review. He was hospitalized earlier this week. States he has no appetite. No other concerns voiced at this time. HPI: 54-year-old -[place]ong[place] gentleman history of smoking 40 pack years and moderate alcohol use had complaints of chest pain for last year and a half and has been seen by his physicians in the past. Recently, his chest pain got much worse and a CT scan of his chest showed paratracheal and hilar lymphadenopathy. He also had a PET CT scan which confirmed a hypermetabolic spiculated mass in the right apical region as well as right hilar and paratracheal lymphadenopathy. There was also involvement of the supra and subclavicular region on the right suggestive of metastatic lymphadenopathy. 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 He received cycle 1 carboplatin and etoposide for small cell neuroendocrine lungcancer on November 24, 2019 He was started on chemotherapy carbo etoposide and atezolizumab and finished his6 cycle of chemotherapy March 08, 2020. About 50% dose reduction under direction of Dr. Ash. Continued atezolizumab through maybe jun 2020. In Mar 2021. CT brain, chest abdomen and pelvis are negative for recurrence. 08/22/[address] imaging from 08/18/21 notes COMPARISON: 04/01/2021. Increasing subcarinal and predominantly right hilar soft tissue prominence suggesting disease recurrence. There is a new small right-sided pleural effusion. Emphysematous changes are noted with linear scarring or atelectasis, as above. No acute intra-abdominal pathology or evidence of new intra-abdominal metastaticdisease. My own personal review of these images, not overwhelming for recurrence. He lives alone in [place]. His children live in [place]. His left him 8 months ago and he is very upset. He has been feeling increasing short of breath and fatigue. Also notes a brick sitting on his chest sensation. He sleeps sitting up with his feet on the table. He notes a sharp pain recurring, previously this had got mostly better. Not eating for the last few months. He notes depression for the last two years is pretty severe. 09/05/[address] Andrea. had a pet/ct on 09/02 notes FINDINGS: No hypermetabolic activity suspicious for malignancy is identified in the neck, chest, abdomen, or pelvis. Specifically, no abnormal uptake is seen in the subcarinal or right hilar regions. Laryngeal activity is presumably physiologic. There is physiologic activity in the heart and urinary tract. Otherwise, there is an [id number]-c-Eyfh on the left. The lungs demonstrate emphysematous changes. There is mild dependent subpleural atelectasis on the right. There are very small pericardial and right pleural effusions. There are calcifications in the head of the pancreas consistent with chronic pancreatitis. The wall of the urinary bladder appears mildly thickened, however, this finding is likely related to underdistention. IMPRESSION: No hypermetabolic activity suspicious for malignancy. His pain in chest persists. He describes it as a chest pain heaviness/numbness. like a tip of a needle that pokes just to the left of her sternum. It limits his quality of life. He has not had a stress test in a while. He has upcoming workup for his heart through Dr. Andrea soon. He is considering moving back down to [facility] where he is from. 02/27/22 he didnt f/u after his cts in december. ct c/a/p from 01/03/22 1. Increasing right-sided pleural effusion since the prior study. Metastatic effusion cannot be excluded. 2. Stable 9 mm indeterminate lesion involving the left lobe of the liver. No new liver lesions. Attention on follow-up is recommended. he still gets the pain in his chest when he becomes active. ALthough today he describes as a pin at the end of a needle is red hot in mid lower back, he states where they did the radiation. He admits it is dramatically improved frompreviously. He does note he is more short of breath on exertion. He quit smoking 2 years ago. 04/11/[address] c/a/p with contrast 04/10/22 ENLARGING RIGHT PLEURAL EFFUSION. BILATERAL ATELECTASIS AND SCARRING. ADVANCED OBSTRUCTIVE LUNG DISEASE. NO DEVELOPING ADENOPATHY. STABLE SMALL LEFT HEPATIC HYPODENSITY. NO ACUTE FINDINGS. currently inpatient admitted yesterday discharging soon. he had chest pain L side and admitted for observation. it was very reproducible. persists today 4/[address] irene has offered to perform a bedside pleural fluid aspiration R side before he goes. 04/14/22 he is feeling increasingly winded recently. Still same pain in L chest. He has fluid aspiriated from the R chest. cytology negative. - Physical Exam ECOG PS: 0 General : patient is alert and oriented to person place and time, no acute distress. Neck: no JVD or thyromegaly. Lymph: no cervical, supraclavicular, axillary adenopathy. Heart: regular rate and rhythm no murmurs rubs or gallops. Chest pain is not reproducible. Abdomen: soft nontender nondistended, no hepatosplenomegaly. Lungs: cta bl, no wheezes, rales, rhonchi Extremities: no clubbing cyanosis. . - Time with Patient Coordination of Care & Counseling Time: Greater than 50% of time spent with patient was for coordination of care (as documented) and [id number] counseling of patient and/or family. [facility] - Medical History Medical History: Medical History (Last Reviewed 04/10/22 @ 09:54 by Helga Hammer, RN) Anemia Anxiety COPD (chronic obstructive pulmonary disease) Depression Emphysema lung H/O peptic ulcer Hypertension Insomnia Neuropathy of right hand Secondary to lacerations years ago. NSTEMI (non-ST elevated myocardial infarction) On home oxygen therapy 4 Pancreatitis Port-A-Cath in place Small cell lung cancer s/p chemo & radiation. undergoing Imunnotherapy TOS (thoracic outlet syndrome) - Surgical History Surgical History: Surgical History (Last Reviewed 04/10/22 @ 09:54 by Helga Hammer RN) H/O vasectomy H/O wrist surgery Right side, 2005 Hx of hernia repair - Family History Family History: Family History (Last Reviewed 07/25/20 @ 13:25 by Brad Lockett PA-C) Mother Colon cancer Father Prostate cancer Other Diabetes mellitus, type 2 Hypertension - Social History Smoking Status: Former smoker Tobacco Type: cigarettes Substance Use Type: None Substance Abuse Comment: social Additional Data - Additional Objective Data Height/Weight: Height 6 ft Weight 70.3 kg BSA for Today's Weight 1.92 Vital Signs: 04/14/22 11:23 Temperature 98.3 F Pulse Rate [Right Brachial] 95 H Respiratory Rate 20 Blood Pressure [Right Arm] 130/93 02 Sat by Pulse Oximetry 100 Oxygen Delivery Method Room Air Distress Screening: RN Distress Screening Start: 11/18/19 12:21 Freq: Status: Complete Protocol: Document 11/18/19 12:56 AA (Rec: 11/18/19 12:58 AA [id number]) Distress Screening Distress Score: 10 Worst distress/worry Emotional Concerns Feeling uncertain about the future Distress Screening Total 10 Distress score of 4 or more discussed Yes with patient? RN Distress Screening Start: 11/24/19 08:55 Freq: Q30D Status: Active Protocol: Document 03/01/22 15:44 KB (Rec: 03/01/22 15:45 KB [id number]) Distress Screening Distress score of 4 or more discussed Yes with patient? Distress screening follow up: Has has recent family deaths lately. Spoke with patient, denies needs/assistance. - Lab Results Diagram of Most Recent CBC and CMP 04/10/22 08:30 04/10/22 08:30 Labs - Last 7 Days 04/10/22 08:30: Carcinoembryonic Ag 10.5 H 04/10/22 08:30: PHA Creatinine Clear 89.21, Sodium 131 L, Potassium 4.0, Chloride 98, Carbon Dioxide 19.7 L, Anion Gap 17.3 H, BUN 7 L, Creatinine 0.92, Est GFR ( Amer) > 60, Est GFR (Non-Af Amer) > 60, Glucose 73, Calcium 8.5, Total Bilirubin 0.7, AST 19, ALT 14, Alkaline Phosphatase 128 H, Total Protein 6.5, Albumin 3.4, Globulin 3.1, Albumin/Globulin Ratio 1.1, TSH 3rd Generation 2.57 04/10/22 08:30: Corrected WBC 6.3, Uncorrected WBC Count 6.3, RBC 4.75, Hgb 15.5, Hct 46.1, MCV 97.2, MCH 32.6, MCHC 33.6, RDW 14.6, Plt Count 239, MPV 7.4, Neut % (Auto) 71.4, Lymph % (Auto) 16.2, [place] % (Auto) 8.6, Eos % (Auto) 2.9, Baso % (Auto) 0.9, Neut # (Auto) 4.5, Lymph # (Auto) 1.0, [place] # (Auto) 0.5, Eos# (Auto) 0.2, Baso # (Auto) 0.1, Nucleated RBC % (auto) 0.1 - Home Medications and Allergies Allergies/Adverse Reactions: Allergies lisinopril Allergy (Verified 04/10/22 09:54) Swelling of Lip/Tongue/Throat sertraline [From Zoloft] Allergy (Verified 04/10/22 09:54) Swelling of Lip/Tongue/Throat Home Medications: Home Medications amlodipine 5 mg tablet 5 mg PO DAILY 09/01/20 [History Confirmed 04/14/22] quetiapine 100 mg tablet 100 mg PO QAM 04/05/21 [History Confirmed 04/14/22] aspirin 81 mg tablet,delayed release 81 mg PO DAILY 09/09/21 [History Confirmed 04/14/22] fluticasone 250 mcg-salmeterol 50 mcg/dose blistr powdr for inhalation (Advair Diskus) 1 inh inhalation BID 09/09/21 [History Confirmed 04/14/22] melatonin 3 mg tablet 3 mg PO HS PRN Insomnia 04/10/22 [History Confirmed 04/14/22] quetiapine 100 mg tablet 200 mg PO QHS 04/10/22 [History Confirmed 04/14/22] Dictated By: Estela Varma II, DO DD/ [id number] Signed By: <Electronically signed by Estela Varma II, DO> 04/14/22 1202 [facility] Work Phone: Progress note Author Dixie Olivia [facility] June 22, 2022 2:24pm Note Date/Time June 22, 2022 2 :16pm [facility] [place] [address] Hem/Onc Follow Up Note - OP Signed Patient: Kirill Echols MR#: [id number] : 1965 Acct:[id number] Age/Sex: 57 / M Type: REG RCR Copies to: MD Rylan Vega MD~ Subjective Date/Time of Service: Date of Service: 06/22/2022 Time of Service: 14:09 Chief Complaint: Patient is here for a 2 month follow up with, had chest tube placed 06/16/2022. No concerns voiced at this time. HPI: 54-year-old -[place]ong[place] gentleman history of smoking 40 pack years and moderate alcohol use had complaints of chest pain for last year and a half and has been seen by his physicians in the past. Recently, his chest pain got much worse and a CT scan of his chest showed paratracheal and hilar lymphadenopathy. He also had a PET CT scan which confirmed a hypermetabolic spiculated mass in the right apical region as well as right hilar and paratracheal lymphadenopathy. There was also involvement of the supra and subclavicular region on the right suggestive of metastatic lymphadenopathy. 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 He received cycle 1 carboplatin and etoposide for small cell neuroendocrine lungcancer on November 24, 2019 He was started on chemotherapy carbo etoposide and atezolizumab and finished his6 cycle of chemotherapy March 08, 2020. About 50% dose reduction under direction of Dr. Ash. Continued atezolizumab through maybe jun 2020. In Mar 2021. CT brain, chest abdomen and pelvis are negative for recurrence. 08/22/[address] imaging from 08/18/21 notes COMPARISON: 04/01/2021. Increasing subcarinal and predominantly right hilar soft tissue prominence suggesting disease recurrence. There is a new small right-sided pleural effusion. Emphysematous changes are noted with linear scarring or atelectasis, as above. No acute intra-abdominal pathology or evidence of new intra-abdominal metastaticdisease. My own personal review of these images, not overwhelming for recurrence. He lives alone in [place]. His children live in [place]. His left him 8 months ago and he is very upset. He has been feeling increasing short of breath and fatigue. Also notes a brick sitting on his chest sensation. He sleeps sitting up with his feet on the table. He notes a sharp pain recurring, previously this had got mostly better. Not eating for the last few months. He notes depression for the last two years is pretty severe. 09/05/[address] Andrea. had a pet/ct on 09/02 notes FINDINGS: No hypermetabolic activity suspicious for malignancy is identified in the neck, chest, abdomen, or pelvis. Specifically, no abnormal uptake is seen in the subcarinal or right hilar regions. Laryngeal activity is presumably physiologic. There is physiologic activity in the heart and urinary tract. Otherwise, there is an Tfvnim-u-Sikp on the left. The lungs demonstrate emphysematous changes. There is mild dependent subpleural atelectasis on the right. There are very small pericardial and right pleural effusions. There are calcifications in the head of the pancreas consistent with chronic pancreatitis. The wall of the urinary bladder appears mildly thickened, however, this finding is likely related to underdistention. IMPRESSION: No hypermetabolic activity suspicious for malignancy. His pain in chest persists. He describes it as a chest pain heaviness/numbness. like a tip of a needle that pokes just to the left of her sternum. It limits his quality of life. He has not had a stress test in a while. He has upcoming workup for his heart through Dr. Andrea soon. He is considering moving back down to [facility] where he is from. 02/27/22 he didnt f/u after his cts in december. ct c/a/p from 01/03/22 1. Increasing right-sided pleural effusion since the prior study. Metastatic effusion cannot be excluded. 2. Stable 9 mm indeterminate lesion involving the left lobe of the liver. No new liver lesions. Attention on follow-up is recommended. he still gets the pain in his chest when he becomes active. ALthough today he describes as a pin at the end of a needle is red hot in mid lower back, he states where they did the radiation. He admits it is dramatically improved frompreviously. He does note he is more short of breath on exertion. He quit smoking 2 years ago. 04/11/[address] c/a/p with contrast 04/10/22 ENLARGING RIGHT PLEURAL EFFUSION. BILATERAL ATELECTASIS AND SCARRING. ADVANCED OBSTRUCTIVE LUNG DISEASE. NO DEVELOPING ADENOPATHY. STABLE SMALL LEFT HEPATIC HYPODENSITY. NO ACUTE FINDINGS. currently inpatient admitted yesterday discharging soon. he had chest pain L side and admitted for observation. it was very reproducible. persists today 4/[address] irene has offered to perform a bedside pleural fluid aspiration R side before he goes. 04/14/22 he is feeling increasingly winded recently. Still same pain in L chest. He has fluid aspirated from the R chest. cytology negative. 06/22/2022: Kirill is here for interval follow up; surveillance with history of limited stage small cell lung cancer - has been off all active cancer therapy x 2 years; since June 2020 - has had ongoing issues with shortness of breath, dyspnea on exertion and chestwall pain He recently underwent placement of right lung pleur-X catheter for recurrent pleural effusion with Dr. Duval on 04/15/2023 - he notes significant changes and improvement in his shortness of breath since placement; he notes some skin discomfort with position changes - no active draining; site is clean, dry, intact. Home health is emptying 1 timeper week. Denies new areas of pain, weight is stable; he has actually gained 8-10 pounds since his last visit here. Last CT scan of the chest, abdomen/pelvis on 04/10/2022 showed pleural effusion with no obvious recurrence or interval mass. ROS Details: All systems reviewed & no additional complaints except as documented Subjective/ROS - Narrative: Residual and chronic left-sided chest complaints. It sometimes goes down his arm. It feels like someone is sitting on his chest. It comes on with exertion. He gets it at night. He usually rests and it goes away; no nausea vomiting or diaphoresis. No orthostasis or dizziness or palpitations. 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 On home oxygen therapy 4 Pancreatitis Pneumothorax Port-A-Cath in place left chest wall Small cell lung cancer s/p chemo & radiation. undergoing Imunnotherapy Suicidal ideation TOS (thoracic outlet syndrome) Urinary retention with incomplete bladder emptying - Surgical History Surgical History: Surgical History (Last Reviewed 06/16/22 @ 19:33 by MYRON Cano-KAYY) H/O vasectomy H/O wrist surgery Right side, 2005 Hx of hernia repair - Family History Family History: Family History (Last Reviewed 06/16/22 @ 19:33 by MYRON Cano-BC) Mother Colon cancer Diabetes mellitus, type 2 Father Prostate cancer Cardiovascular disease Hypertension Brother Diabetes mellitus, type 2 Hypertension Sister Hypertension - Social History Smoking Status: Former smoker Tobacco Type: cigarettes Substance Use Type: None Substance Abuse Comment: social Home Medications & Allergies Allergies lisinopril Allergy (Verified 04/10/22 09:54) Swelling of Lip/Tongue/Throat sertraline [From Zoloft] Allergy (Verified 04/10/22 09:54) Swelling of Lip/Tongue/Throat Home Medications quetiapine 100 mg tablet 100 mg PO QAM 04/05/21 [History Confirmed 06/22/22] aspirin 81 mg tablet,delayed release 81 mg PO DAILY 09/09/21 [History Confirmed 06/22/22] fluticasone 250 mcg-salmeterol 50 mcg/dose blistr powdr for inhalation (Advair Diskus) 1 inh inhalation DAILY 09/09/21 [History Confirmed 06/22/22] melatonin 3 mg tablet 3 mg PO HS PRN Insomnia 04/10/22 [History Confirmed 06/22/22] quetiapine 100 mg tablet 200 mg PO QHS 04/10/22 [History Confirmed 06/22/22] mirtazapine 15 mg tablet 15 mg PO QHS 06/15/22 [History Confirmed 06/22/22] ondansetron HCl 4 mg tablet 4 mg PO DAILY PRN Nausea 06/15/22 [History Confirmed 06/22/22] hydrocodone 5 mg-acetaminophen 325 mg tablet 1 - 2 tab PO Q6H PRN Pain Scale 6 - 10 5 days #40 tabs 06/17/22 [Rx Confirmed 06/22/22] Objective - Resuscitation Status Resuscitation Status: Full Code - Height/Weight Height/Weight: Height 6 ft Weight 73.2 kg BSA for Today's Weight 1.92 - Vital Signs Vital Signs: 06/22/22 13:07 Temperature 98 F Pulse Rate [Right Brachial] 112 H Respiratory Rate 20 Blood Pressure [Right Arm] 137/88 02 Sat by Pulse Oximetry 99 Oxygen Delivery Method Room Air - Pain Anterior Chest Pain Intensity: 6 Shoulder Pain Intensity: 3 Right Neck Pain Intensity: 3 Back Pain Intensity: 7 Generalized Pain Intensity: 5 - Distress Screening Distress Screen Results: RN Distress Screening Start: 11/18/19 12:21 Freq: Status: Complete Protocol: Document 11/18/19 12:56 AA (Rec: 11/18/19 12:58 AA --01) Distress Screening Distress Score: 10 Worst distress/worry Emotional Concerns Feeling uncertain about the future Distress Screening Total 10 Distress score of 4 or more discussed Yes with patient? RN Distress Screening Start: 11/24/19 08:55 Freq: Q30D Status: Active Protocol: Document 03/01/22 15:44 KB (Rec: 03/01/22 15:45 KB [id number]) Distress Screening Distress score of 4 or more discussed Yes with patient? Distress screening follow up: Has has recent family deaths lately. Spoke with patient, denies needs/assistance. Physical Exam Narrative: ECOG PS: 0 General : patient is alert and oriented to person place and time, no acute distress. Neck: no JVD or thyromegaly. Lymph: no cervical, supraclavicular, axillary adenopathy. Heart: regular rate and rhythm no murmurs rubs or gallops. Chest wall: right lung pleurx catheter with dressing intact; clean, dry. Abdomen: soft nontender nondistended, no hepatosplenomegaly. Lungs: cta bl, no wheezes, rales, rhonchi Extremities: no clubbing cyanosis. . - ECOG Performance Status ECOG Score: 0 Results - Labs Labs: Diagram of Most Recent CBC and CMP 04/10/22 08:30 04/10/22 08:30 Assessment and Plan (1) Small cell lung cancer 1.) Limited stage small cell lung cancer, status post concurrent chemoradiation with carboplatin/etoposide, CR after 6 cycles of carboplatin, etoposide and atezolizumab. He did not complete a year of maintenance atezolizumab, stopped for patient preference. Was tolerating well with some diarrhea PET/CT in August 2021 shows no evidence of active malignancy. Follow-up imagingin March 2022 with no evidence of disease but enlarging right-sided pleural effusion.. He has had longstanding chronic L sided chest discomfort. He has had a work-up as an outpatient recently from his PCP. He has left-sided chest pain but his pain is very much reproducible. Also he has enlarging (contralateral) right-sided pleural effusion. Dr Irene did diagnostic pleura aspiration was negative cytology mar 2022. fluid was EXUDATIVE suggestive of malignancy. ct c/a/p: 04/10/22 no obvious evidence cancer recurrence. 06/22/2022: Interval follow up; s/p pleurx catheter placement on 06/16/2022. Home health is draining this...next follow up with Elena next week. - pleural fluid is negative for malignancy - no other new concerns or constitutional symptoms - follow up in 2 months with scans - CT C/A/P - this will be ~ 6 months from last set of scans. - sooner with any new or worsening symptoms; now 2 years out from completion of treatment. 2.) Shortness of breath/dyspnea on exertion - s/p thoracentesis with improvement but reaccumulation - s/p right lung pleurx catheter per Dr. Duval on 06/16/2022 - significant improvement in shortness of breath - having some pain with catheter site; no obvious evidence of cancer recurrence Pleural fluid with thoracentesis has been negative for malignancy 3.) Chest wall pain - no active cancer; he is gaining weight - pain is ongoing; with multiple previous work up - advised tylenol and NSAID - trial different methods 4.) Hyponatremia - likely secondary to daily alcohol consumption - this is ongoing and has been present consistently x years (2) Chest pain (3) Shortness of breath (4) Chronic hyponatremia - Time with Patient Time Spent with Patient (Follow Up Visit): 35 minutes Coordination of Care & Counseling Time: Greater than 50% of time spent with patient was for coordination of care (as documented) and [id number] counseling of patient and/or family. Dictated By: Dixie Olivia APRN DD/ [id number] Signed By: <Electronically signed by ERINN Olivia> 06/22/22 1424 [facility] Work Phone: Progress note Author Estela Varma [facility] September 19, 2022 10:02am Note Date/Time September 19, 2022 9:50am [facility] [place] [address] Hem/Onc Follow Up Note - OP Signed Patient: Kirill Echols MR#: [id number] : 1965 Acct:[id number] Age/Sex: 57 / M Type: REG RCR Copies to: MD Rylan Vega MD~ Date of Service: 09/19/2022 Time of Service: 09:49 - Assessment & Plan (1) Small cell lung cancer Plan: 1.) Limited stage small cell lung cancer, status post concurrent chemoradiation with carboplatin/etoposide, CR after 6 cycles of carboplatin, etoposide and atezolizumab. He did not complete a year of maintenance atezolizumab, stopped for patient preference LAST DOSE JUN 2020. Was tolerating well with some diarrhea PET/CT in August 2021 shows no evidence of active malignancy. Follow-up imagingin March 2022 with no evidence of disease but enlarging right-sided pleural effusion.. He has had longstanding chronic L sided chest discomfort. He has had a work-up as an outpatient recently from his PCP. He has left-sided chest pain but his pain is very much reproducible. Also he has enlarging (contralateral) right-sided pleural effusion. Dr Irene did diagnostic pleura aspiration was negative cytology mar 2022. fluid was EXUDATIVE suggestive of malignancy. ct c/a/p: 04/10/22 no obvious evidence cancer recurrence. s/p R pleurx catheter placement on 06/16/2022. Home health is draining this - pleural fluid is negative for malignancy HAS NOT BEEN TREATED SYSTEMICALLY SinCE JUN 2020. pet/ct in september 2022, is with no evidence of cancer. Pleural fluid with thoracentesis has been negative for malignancy; however, as noted above - we will request repeat cytology of pleural fluid x 3 consecutive samples it seems these have been sent as cultures, not as cytology, we will try to rectify this in the future. (2) Chest pain (3) Shortness of breath (4) Chronic hyponatremia (5) Weight loss Follow Up Instructions: f/u wth RN TRANSITIONAL CARE in 6 weeks, cbc, cmp b12, folate, epo, esr, cea iron studies, prior to f/u. check pet/ct in 3 months and f/u after send weekly CYTOLOGY on his lung fluid x 3 cbc, cmp, prior to 3 mos - History of Present Illness Chief Complaint: Patient is here for a 2 week follow up with PET scan 09/15/22 and outside labs for review. No concerns voiced at this time. HPI: 54-year-old -Mongolian gentleman history of smoking 40 pack years and moderate alcohol use had complaints of chest pain for last year and a half and has been seen by his physicians in the past. Recently, his chest pain got much worse and a CT scan of his chest showed paratracheal and hilar lymphadenopathy. He also had a PET CT scan which confirmed a hypermetabolic spiculated mass in the right apical region as well as right hilar and paratracheal lymphadenopathy. There was also involvement of the supra and subclavicular region on the right suggestive of metastatic lymphadenopathy. 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 He received cycle 1 carboplatin and etoposide for small cell neuroendocrine lungcancer on November 24, 2019 He was started on chemotherapy carbo etoposide and atezolizumab and finished his6 cycle of chemotherapy March 08, 2020. About 50% dose reduction under direction of Dr. Ash. Continued atezolizumab through maybe jun 2020. In Mar 2021. CT brain, chest abdomen and pelvis are negative for recurrence. CT imaging from 08/18/21 notes COMPARISON: 04/01/2021. Increasing subcarinal and predominantly right hilar soft tissue prominence suggesting disease recurrence. There is a new small right-sided pleural effusion. Emphysematous changes are noted with linear scarring or atelectasis, as above. No acute intra-abdominal pathology or evidence of new intra-abdominal metastatic disease. My own personal review of these images, not overwhelming for recurrence. He lives alone in [place]. His children live in [place]. His left him 8 months ago and he is very upset. as of august, very short of breath and fatigue, chest pressure. sleeps sitting up, very depresse. pet/ct on 09/02 notes FINDINGS: No hypermetabolic activity suspicious for malignancy is identified in the neck, chest, abdomen, or pelvis. Specifically, no abnormal uptake is seen in the subcarinal or right hilar regions. Laryngeal activity is presumably physiologic. There is physiologic activity in the heart and urinary tract. Otherwise, there is an Kegqlu-h-Rjza on the left. The lungs demonstrate emphysematous changes. There is mild dependent subpleural atelectasis on the right. There are very small pericardial and right pleural effusions. There are calcifications in the head of the pancreas consistent with chronic pancreatitis. The wall of the urinary bladder appears mildly thickened, however, this finding is likely related to underdistention. IMPRESSION: No hypermetabolic activity suspicious for malignancy. ct c/a/p from 01/03/22 1. Increasing right-sided pleural effusion since the prior study. Metastatic effusion cannot be excluded. 2. Stable 9 mm indeterminate lesion involving the left lobe of the liver. No new liver lesions. Attention on follow-up is recommended. around then his short of breath and chest pressure improved quite significantly. ct c/a/p with contrast 04/10/22 ENLARGING RIGHT PLEURAL EFFUSION. BILATERAL ATELECTASIS AND SCARRING. ADVANCED OBSTRUCTIVE LUNG DISEASE. NO DEVELOPING ADENOPATHY. STABLE SMALL LEFT HEPATIC HYPODENSITY. NO ACUTE FINDINGS. In april started with R sided effusion, had hospitalization. He has thoracentesis aspirated from the R chest. cytology negative. 06/22/2022: Kirill is here for interval follow up; surveillance with history of limited stage small cell lung cancer - has been off all active cancer therapy x 2 years; since June 2020 - has had ongoing issues with shortness of breath, dyspnea on exertion and chestwall pain He recently underwent placement of right lung pleur-X catheter for recurrent pleural effusion with Dr. Duval on 04/15/2023 - he notes significant changes and improvement in his shortness of breath since placement; he notes some skin discomfort with position changes - no active draining; site is clean, dry, intact. Home health is emptying 1 timeper week. Denies new areas of pain, weight is stable; he has actually gained 8-10 pounds since his last visit here. Last CT scan of the chest, abdomen/pelvis on 04/10/2022 showed pleural effusion with no obvious recurrence or interval mass. 09/04/2022: Kirill is here for add on appointment after ER visit at [facility] on August 29, 2022 He went to the ER for new onset, left sided rib pain; felt like he had a cinderblock on his left chest wall Cardiac work up was done: nothing acute He had CT chest done that showed mild right pleural effusion; no enlarging lymphnodes or osseous lesions - there was mention of a right localized crescenteric pleural-based airspace consolidation suggestive of rounded atelectasis in the posterior right lower lobe and right middle lobe. Cannot exclude infection versus neoplasm. Clinically, he is feeling more tired and has lost weight When I saw him in June 2022; he had actually gained 8-10 pounds; but has since lost 10 pounds over the last 6-8 weeks Reports nothing tastes good He is more short of breath with exertion; but denies fever/chills, night sweats or new bony pain elsewhere He has productive cough at times; but not consistent; no hemoptysis 09/19/22 pet/ct from 09/15/22 notes Neck: No abnormal activityChest:No abnormal activity isseen within the mediastinum or hilar regions. No FDG avid lung nodule or mass. Right- sided Pleurx catheter is noted with residual pleural thickening without focal abnormal FDG activity. Abdomen/pelvis: No abnormal activity. Soft tissue/bones: No abnormal activity. CT findings: Emphysematous changes. No pneumothorax. Left-sided port is in place. No free air or free fluid. IMPRESSION: No PET/CT evidence of malignancy is seen. he continues to get twice weekly drainage of his pleuryx. the last two times heonly had about 100cc out. He is doing well overall. He does note getting winded a bit on exertion. he feels he is deconditioned. - Physical Exam ECOG PS: 0 General : patient is thin, alert and oriented to person place and time, no acutedistress. Neck: no JVD or thyromegaly. Lymph: no cervical, supraclavicular, axillary adenopathy. Heart: regular rate and rhythm no murmurs rubs or gallops. Chest wall: right lung pleurx catheter with dressing intact; clean, dry. Abdomen: soft nontender nondistended, no hepatosplenomegaly. Lungs: cta bl, no wheezes, rales, rhonchi Extremities: no clubbing cyanosis. . - Time with Patient Coordination of Care & Counseling Time: Greater than 50% of time spent with patient was for coordination of care (as documented) and [id number]-ll-[id number] counseling of patient and/or family. 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 On home oxygen therapy 4 Pancreatitis Pneumothorax Port-A-Cath in place left chest wall Recurrent right pleural effusion Small cell lung cancer s/p chemo & radiation. undergoing Imunnotherapy Suicidal ideation TOS (thoracic outlet syndrome) Urinary retention with incomplete bladder emptying - Surgical History Surgical History: Surgical History (Last Reviewed 06/16/22 @ 19:33 by Jackie Fraga, ANP-) H/O vasectomy H/O wrist surgery Right side, 2005 Hx of hernia repair - Family History Family History: Family History (Last Reviewed 06/16/22 @ 19:33 by Jackie Fraga, ANP-) Mother Colon cancer Diabetes mellitus, type 2 Father Prostate cancer Cardiovascular disease Hypertension Brother Diabetes mellitus, type 2 Hypertension Sister Hypertension - Social History Smoking Status: Former smoker Tobacco Type: cigarettes Substance Use Type: None Substance Abuse Comment: social Additional Data - Additional Objective Data Height/Weight: Height 6 ft Weight 70.398 kg BSA for Today's Weight 1.92 Vital Signs: 09/19/22 09:33 Pulse Rate [Right Brachial] 85 Respiratory Rate 20 Blood Pressure [Right Arm] 128/85 02 Sat by Pulse Oximetry 97 Oxygen Delivery Method Room Air Distress Screening: RN Distress Screening Start: 11/18/19 12:21 Freq: Status: Complete Protocol: Document 11/18/19 12:56 AA (Rec: 11/18/19 12:58 AA [id number]) Distress Screening Distress Score: 10 Worst distress/worry Emotional Concerns Feeling uncertain about the future Distress Screening Total 10 Distress score of 4 or more discussed Yes with patient? RN Distress Screening Start: 11/24/19 08:55 Freq: Q30D Status: Active Protocol: Document 03/01/22 15:44 KB (Rec: 03/01/22 15:45 KB [id number]) Distress Screening Distress score of 4 or more discussed Yes with patient? Distress screening follow up: Has has recent family deaths lately. Spoke with patient, denies needs/assistance. - Lab Results Diagram of Most Recent CBC and CMP 04/10/22 08:30 04/10/22 08:30 - Home Medications and Allergies Allergies/Adverse Reactions: Allergies lisinopril Allergy (Verified 09/04/22 11:25) Swelling of Lip/Tongue/Throat sertraline [From Zoloft] Allergy (Verified 09/04/22 11:25) Swelling of Lip/Tongue/Throat chlordiazepoxide [From Librium] Adverse Reaction (Verified 09/04/22 11:25) Edema Home Medications: Home Medications quetiapine 100 mg tablet 100 mg PO QAM 04/05/21 [History Confirmed 09/19/22] aspirin 81 mg tablet,delayed release 81 mg PO DAILY 09/09/21 [History Confirmed 09/19/22] quetiapine 100 mg tablet 200 mg PO QHS 04/10/22 [History Confirmed 09/19/22] amlodipine 5 mg tablet 5 mg PO DAILY 09/04/22 [History Confirmed 09/19/22] Dictated By: Estela Varma II, DO DD/ Signed By: <Electronically signed by Estela Varma II, DO> 09/19/22 [address] [facility] Work Phone: Progress note Author Estela Varma [facility] December 25, 2022 11:43am Note Date/Time December 25, 2022 11 :39am [facility] [place] [address] Hem/Onc Follow Up Note - OP Signed Patient: Kirill Echols MR#: [id number] : 1965 Acct:[id number] Age/Sex: 57 / M Type: REG RCR Copies to: MD Rylan Vega MD~ Date of Service: 12/25/2022 Time of Service: 11:39 - Assessment & Plan (1) Small cell lung cancer Plan: 1.) Limited stage small cell lung cancer, status post concurrent chemoradiation with carboplatin/etoposide, CR after 6 cycles of carboplatin, etoposide and atezolizumab. He did not complete a year of maintenance atezolizumab, stopped for patient preference LAST DOSE JUN 2020. Was tolerating well with some diarrhea PET/CT in August 2021 shows no evidence of active malignancy. Follow-up imagingin March 2022 with no evidence of disease but enlarging right-sided pleural effusion.. He has had longstanding chronic L sided chest discomfort. He has had a work-up as an outpatient recently from his PCP. He has left-sided chest pain but his pain is very much reproducible. Also he has enlarging (contralateral) right-sided pleural effusion. Dr Irene did diagnostic pleura aspiration was negative cytology mar 2022. fluid was EXUDATIVE suggestive of malignancy. ct c/a/p: 04/10/22 no obvious evidence cancer recurrence. s/p R pleurx catheter placement on 06/16/2022. Home health is draining this - pleural fluid is negative for malignancy October 2022 catheter removed HAS NOT BEEN TREATED SYSTEMICALLY Since JUN 2020. pet/ct in september 2022, is with no evidence of cancer. PET/CT 12/22/22 with no evidence cancer, mild emphysema and pancreatitis. Plan next imaging in December 2022 Pleural fluid with thoracentesis has been negative for malignancy; however, as noted above - we will request repeat cytology of pleural fluid x 3 consecutive samples it seems these have been sent as cultures, not as cytology, we will try to rectify this in the future. Cytology continues to be negative (2) Chest pain (3) Shortness of breath (4) Chronic hyponatremia (5) Weight loss Follow Up Instructions: cont b12 shots monthly. encourage folate 1mg po daily, please send script. f/u in 6 months with pet/ct prior. cbc, cmp, tsh, amylase, lipase, cea, t4, b12, folate, iron studies, mma in 3 months and prior to f/u. - History of Present Illness Chief Complaint: Patient is here for a 2 month follow up with labs and PET scan for review. He is scheduled to get B12 today. No new concerns voiced. HPI: 54-year-old -Mong[place] gentleman history of smoking 40 pack years and moderate alcohol use had complaints of chest pain for last year and a half and has been seen by his physicians in the past. Recently, his chest pain got much worse and a CT scan of his chest showed paratracheal and hilar lymphadenopathy. He also had a PET CT scan which confirmed a hypermetabolic spiculated mass in the right apical region as well as right hilar and paratracheal lymphadenopathy. There was also involvement of the supra and subclavicular region on the right suggestive of metastatic lymphadenopathy. 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 He received cycle 1 carboplatin and etoposide for small cell neuroendocrine lungcancer on November 24, 2019 He was started on chemotherapy carbo etoposide and atezolizumab and finished his6 cycle of chemotherapy March 08, 2020. About 50% dose reduction under direction of Dr. Ash. Continued atezolizumab through maybe jun 2020. In Mar 2021. CT brain, chest abdomen and pelvis are negative for recurrence. CT imaging from 08/18/21 notes COMPARISON: 04/01/2021. Increasing subcarinal and predominantly right hilar soft tissue prominence suggesting disease recurrence. There is a new small right-sided pleural effusion. Emphysematous changes are noted with linear scarring or atelectasis, as above. No acute intra-abdominal pathology or evidence of new intra-abdominal metastatic disease. My own personal review of these images, not overwhelming for recurrence. He lives alone in [place]. His children live in [place]. His left him 8 months ago and he is very upset. as of august, very short of breath and fatigue, chest pressure. sleeps sitting up, very depresse. pet/ct on 09/02 notes FINDINGS: No hypermetabolic activity suspicious for malignancy is identified in the neck, chest, abdomen, or pelvis. Specifically, no abnormal uptake is seen in the subcarinal or right hilar regions. Laryngeal activity is presumably physiologic. There is physiologic activity in the heart and urinary tract. Otherwise, there is an [id number]-u-Vjsy on the left. The lungs demonstrate emphysematous changes. There is mild dependent subpleural atelectasis on the right. There are very small pericardial and right pleural effusions. There are calcifications in the head of the pancreas consistent with chronic pancreatitis. The wall of the urinary bladder appears mildly thickened, however, this finding is likely related to underdistention. IMPRESSION: No hypermetabolic activity suspicious for malignancy. ct c/a/p from 01/03/22 1. Increasing right-sided pleural effusion since the prior study. Metastatic effusion cannot be excluded. 2. Stable 9 mm indeterminate lesion involving the left lobe of the liver. No new liver lesions. Attention on follow-up is recommended. around then his short of breath and chest pressure improved quite significantly. ct c/a/p with contrast 04/10/22 ENLARGING RIGHT PLEURAL EFFUSION. BILATERAL ATELECTASIS AND SCARRING. ADVANCED OBSTRUCTIVE LUNG DISEASE. NO DEVELOPING ADENOPATHY. STABLE SMALL LEFT HEPATIC HYPODENSITY. NO ACUTE FINDINGS. In april started with R sided effusion, had hospitalization. He has thoracentesis aspirated from the R chest. cytology negative. 06/22/2022: Kirill is here for interval follow up; surveillance with history of limited stage small cell lung cancer - has been off all active cancer therapy x 2 years; since June 2020 - has had ongoing issues with shortness of breath, dyspnea on exertion and chestwall pain He recently underwent placement of right lung pleur-X catheter for recurrent pleural effusion with Dr. Duval on 04/15/2023 - he notes significant changes and improvement in his shortness of breath since placement; he notes some skin discomfort with position changes - no active draining; site is clean, dry, intact. Home health is emptying 1 timeper week. Denies new areas of pain, weight is stable; he has actually gained 8-10 pounds since his last visit here. Last CT scan of the chest, abdomen/pelvis on 04/10/2022 showed pleural effusion with no obvious recurrence or interval mass. 09/04/2022: Kirill is here for add on appointment after ER visit at [facility] on August 29, 2022 He went to the ER for new onset, left sided rib pain; felt like he had a cinderblock on his left chest wall Cardiac work up was done: nothing acute He had CT chest done that showed mild right pleural effusion; no enlarging lymphnodes or osseous lesions - there was mention of a right localized crescenteric pleural-based airspace consolidation suggestive of rounded atelectasis in the posterior right lower lobe and right middle lobe. Cannot exclude infection versus neoplasm. Clinically, he is feeling more tired and has lost weight When I saw him in June 2022; he had actually gained 8-10 pounds; but has since lost 10 pounds over the last 6-8 weeks Reports nothing tastes good He is more short of breath with exertion; but denies fever/chills, night sweats or new bony pain elsewhere He has productive cough at times; but not consistent; no hemoptysis 09/19/22 pet/ct from 09/15/22 notes Neck: No abnormal activityChest:No abnormal activity isseen within the mediastinum or hilar regions. No FDG avid lung nodule or mass. Right- sided Pleurx catheter is noted with residual pleural thickening without focal abnormal FDG activity. Abdomen/pelvis: No abnormal activity. Soft tissue/bones: No abnormal activity. CT findings: Emphysematous changes. No pneumothorax. Left-sided port is in place. No free air or free fluid. IMPRESSION: No PET/CT evidence of malignancy is seen. he continues to get twice weekly drainage of his pleuryx. the last two times heonly had about 100cc out. He is doing well overall. He does note getting winded a bit on exertion. he feels he is deconditioned. 11/01/22 He is doing ok overall He has not had nearly any drainage/fluid from his pleurx cath and wants this removed. Per Dr. Duval's office, they will not see Mr. Echols any longer. Dr. Andrea's office stated to f/u with us for the removal. denies shortness of breath, chest pain, GI complaints or other new concerns labs stable. His B12 and folate are low, will initiate treatment. CEA down to 8.0 12/25/22 PET/CT 12/22/22 with no evidence cancer, mild emphysema and pancreatitis. he is doing wlel. breathing good. appreciates his b12 shots. - Physical Exam ECOG PS: 0 General : patient is thin, alert and oriented to person place and time, no acutedistress. Neck: no JVD or thyromegaly. Lymph: no cervical, supraclavicular, axillary adenopathy. Heart: regular rate and rhythm no murmurs rubs or gallops. Chest wall: right lung pleurx catheter with dressing intact; clean, dry. Abdomen: soft nontender nondistended, no hepatosplenomegaly. Lungs: cta bl, no wheezes, rales, rhonchi Extremities: no clubbing cyanosis. . - Time with Patient Coordination of Care & Counseling Time: Greater than 50% of time spent with patient was for coordination of care (as documented) and clgn-oq-nurl counseling of patient and/or family. 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 On home oxygen therapy 4 Pancreatitis Pneumothorax Port-A-Cath in place left chest wall Recurrent right pleural effusion Small cell lung cancer s/p chemo & radiation. undergoing Imunnotherapy Suicidal ideation TOS (thoracic outlet syndrome) Urinary retention with incomplete bladder emptying - Surgical History Surgical History: Surgical History (Last Reviewed 10/26/22 @ 11:57 by Hannah Gamboa RN) H/O vasectomy H/O wrist surgery Right side, 2005 Hx of hernia repair - Family History Family History: Family History (Last Reviewed 06/16/22 @ 19:33 by Jackie Fraga, ANP-) Mother Colon cancer Diabetes mellitus, type 2 Father Prostate cancer Cardiovascular disease Hypertension Brother Diabetes mellitus, type 2 Hypertension Sister Hypertension - Social History Smoking Status: Never smoker Tobacco Type: cigarettes Substance Use Type: Alcohol, Marijuana Substance Abuse Comment: socially Additional Data - Additional Objective Data Height/Weight: Height 6 ft Weight 66.95 kg BSA for Today's Weight 1.92 Vital Signs: 12/25/22 11:05 Temperature 97.7 F Pulse Rate [Right Brachial] 94 H Respiratory Rate 18 Blood Pressure [Right Arm] 136/85 02 Sat by Pulse Oximetry 97 Oxygen Delivery Method Room Air Distress Screening: RN Distress Screening Start: 11/18/19 12:21 Freq: Status: Complete Protocol: Document 11/18/19 12:56 AA (Rec: 11/18/19 12:58 AA [id number]) Distress Screening Distress Score: 10 Worst distress/worry Emotional Concerns Feeling uncertain about the future Distress Screening Total 10 Distress score of 4 or more discussed Yes with patient? RN Distress Screening Start: 11/24/19 08:55 Freq: Q30D Status: Active Protocol: Document 03/01/22 15:44 KB (Rec: 03/01/22 15:45 KB [id number]) Distress Screening Distress score of 4 or more discussed Yes with patient? Distress screening follow up: Has has recent family deaths lately. Spoke with patient, denies needs/assistance. - Lab Results Diagram of Most Recent CBC and CMP 12/22/22 07:41 12/22/22 07:41 Labs - Last 7 Days 12/22/22 07:41: PHA Creatinine Clear 114.05, Sodium 127 L, Potassium 4.2, Chloride 100, Carbon Dioxide 23.2, Anion Gap 8.0, BUN 6 L, Creatinine 0.69 L, Est GFR (CKD-EPI) > 60.0, Glucose 65 L, Calcium 8.0 L, Total Bilirubin 0.5, AST 17, ALT 13, Alkaline Phosphatase 122 H, Total Protein 6.0 L, Albumin 3.7, Globulin 2.3, Albumin/Globulin Ratio 1.6 12/22/22 07:41: Corrected WBC 6.0, Uncorrected WBC Count 6.0, RBC 4.17, Hgb 13.3, Hct 39.6, MCV 95.0, MCH 31.9, MCHC 33.5, RDW 16.0 H, Plt Count 177, MPV 6.9, Neut % (Auto) 70.2, Lymph % (Auto) 15.7, [place] % (Auto) 7.8, Eos % (Auto) 5.0, Baso % (Auto) 1.3, Nucleat RBC Rel Count 0.0, Neut # (Auto) 4.2, Lymph # (Auto) 0.9 L, [place] # (Auto) 0.5, Eos # (Auto) 0.3, Baso # (Auto) 0.1 12/22/22 07:39: POC Glucose 71 - Home Medications and Allergies Allergies/Adverse Reactions: Allergies lisinopril Allergy (Verified 10/26/22 11:58) Swelling of Lip/Tongue/Throat sertraline [From Zoloft] Allergy (Verified 10/26/22 11:58) Swelling of Lip/Tongue/Throat chlordiazepoxide [From Librium] Adverse Reaction (Verified 10/26/22 11:58) Edema Home Medications: Home Medications quetiapine 100 mg tablet 100 mg PO QAM 04/05/21 [History Confirmed 12/25/22] aspirin 81 mg tablet,delayed release 81 mg PO DAILY 09/09/21 [History Confirmed 12/25/22] quetiapine 100 mg tablet 200 mg PO QHS 04/10/22 [History Confirmed 12/25/22] amlodipine 5 mg tablet 5 mg PO DAILY 09/04/22 [History Confirmed 12/25/22] folic acid 1 mg tablet 1 mg PO DAILY #60 tabs 11/01/22 [Rx Confirmed 12/25/22] Dictated By: Estela Varma II, DO DD/ [id number] Signed By: <Electronically signed by Estela Varma II, DO> 12/25/22 1143 [facility] Work Phone: Summary Purpose Family History No Family History Records FoundUnknown Family Member Name Dates Details Family history of cardiovasc ular disease: Father(V17.49, Z82.49) Status:Active Family history of pancreatic cancer: Father(V16.0, Z80.0) Status:Active Family history of diabetes m ellitus: Mother, Brother(V18.0, Z83.3) Status:Active Unknown Family Member Name Dates Details Family history of cardiovasc ular disease: Father(V17.49, Z82.49) Status:Active Family history of pancreatic cancer: Father(V16.0, Z80.0) Status:Active Family history of diabetes m ellitus: Mother, Brother(V18.0, Z83.3) Status:Active Relationship Condition Age at Onset Recorded Date/T liliana Not Specified Type 2 diabetes mellitus Unknown Hypertension Unknown Not Specified Malignant neoplasm of colon Unknown father Malignant neoplasm of prostate Unknown Relationship Condition Age at Onset Recorded Date/T liliana Not Specified Malignant neoplasm of colon Unknown Type 2 diabetes mellitus Unknown father Malignant neoplasm of prostate Unknown Cardiovascular disease Unknown Hypertension Unknown brother Type 2 diabetes mellitus Unknown sister Hypertension Unknown Relationship Condition Age at Onset Recorded Date/T liliana Not Specified Malignant neoplasm of colon Unknown Type 2 diabetes mellitus Unknown father Malignant neoplasm of prostate Unknown Cardiovascular disease Unknown Hypertension Unknown brother Type 2 diabetes mellitus Unknown sister Hypertension Unknown brother Diabetes mellitus Unknown father Malignant neoplasm Unknown Unknown Not Specified Diabetes mellitus Unknown Malignant neoplasm Unknown Advance Directives No Advanced Directives Records Found Advance Directive Response Recorded Date/ Time Advance Directives No September 22 2:27pm Advance Directive Response Recorded Date/ Time Advance Directives No September 22 1:27pm Chief Complaint and Reason for Visit Chief Complaint Metastatic Small Lucille l Reason for Visit Anemia due to chemot herapy Anxiety Cancer-related pain Chest pain Diarrhea Edema Joint pain Neck pain Small cell lung cancer Chief Complaint Metastatic Small Lucille l Chest pain Reason for Visit Anemia due to chemot herapy Anxiety Cancer-related pain Chest pain Diarrhea Edema Joint pain Neck pain Small cell lung cancer Chest pain Chief Complaint Chest pain Metastatic Small Cell Reason for Visit Chest pain Small cell lung cancer Anemia due to chemotherapy Anxiety Cancer-related pain Chest pain Diarrhea Edema Joint pain Neck pain Small cell lung cancer Chief Complaint Chest pain Metastatic Small Cell C34.90 Reason for Visit Chest pain Small cell lung cancer Anemia due to chemotherapy Anxiety Cancer-related pain Chest pain Diarrhea Edema Joint pain Neck pain Small cell lung cancer Chief Complaint Chest pain Metastatic Small Cell C34.90 C34.90 Reason for Visit Chest pain Small cell lung cancer Anemia due to chemotherapy Anxiety Cancer-related pain Chest pain Diarrhea Edema Joint pain Neck pain Small cell lung cancer Small cell lung cancer Chief Complaint Chest pain Metastatic Small Cell C34.90 C34.90 Small cell lung cancer Reason for Visit Chest pain Small cell lung cancer Anemia due to chemotherapy Anxiety Cancer-related pain Chest pain Diarrhea Edema Joint pain Neck pain Small cell lung cancer Small cell lung cancer Chief Complaint Chest pain Metastatic Small Cell C34.90 C34.90 Small cell lung cancer Pleural Effusion Reason for Visit Chest pain Small cell lung cancer Anemia due to chemotherapy Anxiety Cancer-related pain Chest pain Diarrhea Edema Joint pain Neck pain Small cell lung cancer Small cell lung cancer Chief Complaint Chest pain C34.90 C34.90 Small cell lung cancer Pleural Effusion Pleural Effusion Metastatic Small Cell Reason for Visit Chest pain Small cell lung cancer Small cell lung cancer Chronic hyponatremia Recurrent right pleural effusion Tachycardia COPD (chronic obstructive pulmonary disease) Small cell lung cancer Cancer-related pain Joint pain Small cell lung cancer Anxiety Chest pain Diarrhea Edema Neck pain Chief Complaint Metastatic Small Lucille l Reason for Visit Cancer-related pain Chronic hyponatremia Joint pain Shortness of breath Weight loss Small cell lung cancer Anxiety Chest pain Diarrhea Edema Neck pain Chief Complaint Metastatic Small Lucille l R06.09 Reason for Visit Cancer-related pain Chronic hyponatremia Joint pain Shortness of breath Weight loss Small cell lung cancer Anxiety Chest pain Diarrhea Edema Neck pain Chief Complaint R06.09 Metastatic Small Cell sent by Reason for Visit Cancer-related pain Chronic hyponatremia Joint pain Shortness of breath Weight loss Small cell lung cancer Anxiety Chest pain Diarrhea Edema Neck pain Chief Complaint R06.09 sent by Metastatic Small Cell Reason for Visit Cancer-related pain Chronic hyponatremia Joint pain Shortness of breath Weight loss Small cell lung cancer Anxiety Chest pain Diarrhea Edema Neck pain Chief Complaint Metastatic Small Lucille l Reason for Visit Cancer-related pain Chronic hyponatremia Joint pain Shortness of breath Weight loss Small cell lung cancer Anxiety Chest pain Diarrhea Edema Neck pain Small cell lung cancer Additional Source Comments (unrecognized sect ion and content) No Status Records FoundNo Status Records FoundNo Status Records FoundNo Status Records FoundNo Status Records FoundNo Status Records FoundNo Status Records FoundNo Status Records FoundNo Status Records FoundNo Status Records FoundNo Status Records Found INFORMATION SOURCE (unrecogn ized section and content) DATE CREATED AUTHOR 10/30/2017 [facility] DATE CREATED AUTHOR AUTHOR'S ORGANIZ ATION 05/14/2018 [facility] DATE CREATED AUTHOR AUTHOR'S ORGANIZ ATION 03/05/2020 [facility] DATE CREATED AUTHOR AUTHOR'S ORGANIZ ATION 08/07/2020 [facility] DATE CREATED AUTHOR AUTHOR'S ORGANIZ ATION 08/20/2020 [facility] DATE CREATED AUTHOR AUTHOR'S ORGANIZ ATION 12/02/2021 [facility] DATE CREATED AUTHOR AUTHOR'S ORGANIZ ATION 03/04/[address] [facility] DATE CREATED AUTHOR AUTHOR'S ORGANIZ ATION 10/23/2022 [facility] DATE CREATED AUTHOR AUTHOR'S ORGANIZ ATION 09/14/2023 [facility] DATE CREATED AUTHOR AUTHOR'S ORGANIZ ATION 10/18/2023 [facility] DATE CREATED AUTHOR AUTHOR'S ORGANIZ ATION 11/02/2023 [facility] EPIC REASON FOR VISIT (unrecogniz ed section and content) Cancer-related pain, C/o buddy st pain radiating around his back for a month and a half. CT scans good. PET scan negative, Heaviness on chest, unable to stand up straight, SOB, No cancer pain, Insomnia due to pain and SOB, Appetite poor, trying to drink, Bowels and bladder ok, No nausea or vomiting, Being set up for time @ [facility] by Dr. AndreaRef: Dr Varma- Pleural fluid and pain2 week f/u- CT Prior Goals (unrecognized section and content) Goals may be documented in a n alternate section Care Teams (unrecognized sec tion and content) Team Status: Active Member Role Status Dates Rylan Andrea MD Primary Care Provider Active Team Status: Active Member Role Status Dates Rylan Andrea MD Primary Care Provider Active S tart: June 29, 2023 Varghese Duval MD Referring Provider Active St art: June 29, 2023 Estela Varma II, DO Attending Provider Active Start: June 29, 2023 Team Status: Inactive Member Role Status Dates Rylan Andrea MD Primary Care Provider Active S tart: June 29, 2023 End: June 29, 2023 Estela Varma II, DO Attending Provider Active Start: June 29, 2023 End: June 29, 2023 Team Status: Inactive Member Role Status Dates Rylan Andrea MD Primary Care Provider Active Nilsa Isidro NP-C Attending Provider Active Team Status: Active Member Role Status Dates Rylan Andrea MD Primary Care Provider Active Varghese Duval MD Referring Provider Active Estela Varma II, DO Attending Provider Active Team Status: Active Member Role Status Dates Rylan Andrea MD Primary Care Provider Active Kali Longo , DO Emergency Provider Active Tez Irene MD Admit Provider, Attending Provider Active Team Status: Inactive Member Role Status Dates Rylan Andrea MD Primary Care Provider Active Kali Longo , DO Emergency Provider Active Tez Irene MD Admit Provider, Attending Provider Active Estela Varma II, DO Other Provider Active Team Status: Inactive Member Role Status Dates Rylan Andrea MD Primary Care Provider Active Estela Varma II, DO Attending Provider Active Team Status: Inactive Member Role Status Dates Rylan Andrea MD Primary Care Provider Active Rachid Chase MD Attending Provider Active Team Status: Inactive Member Role Status Dates Rylan Andrea MD Primary Care Provider Active Varghese Duval MD Attending Provider Active Team Status: Inactive Member Role Status Dates Rylan Andrea MD Primary Care Provider Active Varghese Duval MD Attending Provider Active Annette Guardado MD Other Provider Active Team Status: Inactive Member Role Status Dates Rylan Andrea MD Primary Care Provider Active ANASTASIA Mireles-Rigo Emergency Provider Active Fashion Journalist Relationship Specialty Start Date End Date Rylan Andrea MD [address] [place] [address] PCP - General Family Medicine 10/16/22 Marilu Bonner NP [address] [place] [address] Nurse Practitioner Family Medicine 04/03/23 Nilsa Isidro NP [address] [place] [address] Nurse Practitioner Pulmonary Disease 04/03/23 Morenita Gomes, RN Registered Nurse Family Medicine 06/18/23 Sanjuana Van LSW Irrigation Installation Specialist Family Medicine 06/18/23 Fashion Journalist Relationship Specialty Start Date End Date Rylan Andrea MD [address] [place] [address] PCP - General Family Medicine 10/16/22 Marilu Bonner NP [address] [place] [address] Nurse Practitioner Family Medicine 04/03/23 Nilsa Isidro NP [address] [place] [address] Nurse Practitioner Pulmonary Disease 04/03/23 Morenita Gomes RN Registered Nurse Family Medicine 06/18/23 Sanjuana Van LSW Irrigation Installation Specialist Family Medicine 06/18/23 FOR RECORDS PERTAINING TO PATIENTS WHO ARE OR HAVE BEEN ENROLLED IN A CHEMICAL DEPENDENCY/SUBSTANCEABUSE PROGRAM, SOME INFORMATION MAY BE OMITTED. This clinical summary was aggregated from multiple sources. Caution should be exercised in using it in the provision of clinical care. This summary normalizes information from multiple sources, and as a consequence, information in this document may materially change the coding, format and clinical context of patient data. In addition, data may be omitted in some cases. CLINICAL DECISIONS SHOULD BE BASED ON THE PRIMARY CLINICAL RECORDS. [employer] provides no warranty or guarantee of the accuracy or completeness of information in this document.
--- NOTE | 2023-11-06 23:16 | ECG_ITS ---
[facility] Test Date: 2023-11-06 Pat Name: TONI GERBER Department: Room: - Gender: Male Tender Labor: : 1965 Requested By: LUH STRONG Order Number: [id number] Reading MD: LUH STRONG Measurements Intervals [place] Rate: 110 P: 75 AK: 196 QRS: 50 QRSD: 92 T: 78 QT: 328 QTc: 393 Interpretive Statements 1120 Sinus tachycardia 3134 Anterior myocardial infarction, age undetermined 9150 abnormal ECG Compared to ECG 09/06/2023 08:39:28 No significant changes Electronically Signed On 11-08-2023 5:32:51 EDT by LUH STRONG
--- NOTE | 2023-11-06 23:16 | XR_ITS ---
The [address] [address] Patient Name: TONI GERBER MRN: [id number] date: 1965 Sex: M Assigned Patient Location: ER Current Patient Location: ER Accession/Order Number: [id number] Exam Date: 11/06/2023 23:30 Report Date: 11/07/2023 00:13 At the request of: EVER MARKER Procedure: XR chest 1V CXR HISTORY: Shortness of breath. COMPARISON: None. TECHNIQUE: 1 view of the chest submitted for review. FINDINGS: Lines and tubes: None Lungs are hyperaerated. Port-A-Cath is seen on the left. Airspace opacity in the right lower lobe. The cardiac silhouette measures within normal. Pulmonary vascularity is unremarkable. Osseous structures are normal for age. XR/XR chest 1V IMPRESSION: Airspace opacity in the right lower lobe. Please correlate for pneumonia versus atelectasis. Electronically authenticated by: JEFFERY JUNIOR Date: 11/07/2023 00:13
[2023-11-06 23:47] LABS: Basophils Absolute Auto 0.1 10^3/uL (0.0-0.1); Eosinophils Absolute Auto 0.2 10^3/uL (0.0-0.7); Eosinophils Percent Auto 3.9 % (0.9-7.0); Hematocrit 39.5 % (42.0-54.0); Hemoglobin 14.1 g/dL (14.0-18.0); Immature Granulocytes Abs Auto 0.04 10^3/uL (0.00-0.03); Immature Granulocytes Pct Auto 0.8 % (0.0-0.5); Lymphocytes Absolute Auto 1.1 10^3/uL (1.2-3.8); Lymphocytes Percent Auto 22.3 % (20.5-60.0); Mean Corpuscular HGB Conc 35.7 g/dL (29.9-35.2); Mean Corpuscular Hemoglobin 32.3 pg (25.9-34.0); Mean Corpuscular Volume 90.6 fL (80.0-94.0); Mean Platelet Volume 9.6 fL (9.5-13.5); Monocytes Absolute Auto 0.8 10^3/uL (0.3-0.8); Monocytes Percent Auto 15.3 % (1.7-12.0); Neutrophils Absolute Auto 2.8 10^3/uL (1.4-6.5); Neutrophils Percent Auto 56.7 % (43.0-75.0); Platelet Count 116 10^3/uL (150-450); Red Blood Count 4.36 10^6/uL (4.70-6.10); Red Cell Distribution Width 13.5 % (11.0-15.0); White Blood Count 4.9 10^3/uL (4.0-11.0)
[2023-11-06] MEDS: METHYLPREDNISOLONE SOD SUCC PF 125 MG/2 ML VIAL IVP (23:49)
[2023-11-06] MEDS: IPRATROPIUM/ALBUTEROL SULFATE 3 ML AMPUL.NEB IH (23:55)
[2023-11-07] VITALS (42 sets, daily range): BP systolic 107–149; BP diastolic 68–100; PULSE 86–115; TEMP 36.3–36.7; O2SAT 94–100; BMI 18.9
[2023-11-07 00:04] LABS: Lactate/Lactic Acid 1.2 mmol/L (0.4-2.0)
[2023-11-07 00:10] LABS: Alanine Aminotransferase 39 U/L (16-63); Albumin Level 3.9 g/dL (3.4-5.0); Alkaline Phosphatase 178 U/L (46-116); Anion Gap 14.7; Aspartate Amino Transferase 42 U/L (15-37); BUN Creatinine Ratio 5.6; Bilirubin Total 0.9 mg/dL (0.2-1.0); Carbon Dioxide 23.1 mmol/L (21.0-32.0); Chloride 89 mmol/L (98-107); Estimated GFR (African America >60 (>=60); Estimated GFR (Non-African Ame >60 (>=60); Globulin 4.1 g/dL; Glucose 81 mg/dL (74-106); Potassium 3.8 mmol/L (3.5-5.1); Troponin I High Sensitivity 8.6 pg/mL (4.0-76.1)
[2023-11-07 00:23] LABS: Sodium 123 mmol/L (136-145)
--- NOTE | 2023-11-07 00:26 | CT_ITS ---
[address] [address] Patient Name: TONI GERBER MRN: [id number] date: 1965 Sex: M Assigned Patient Location: ER Current Patient Location: ER Accession/Order Number: [id number] Exam Date: 11/07/2023 00:48 Report Date: 11/07/2023 02:51 At the request of: EVER MARKER Procedure: CT angio chest EXAMINATION:CT angio chest INDICATION:SOB, hx lung ca COMPARISON:01/02/2023 TECHNIQUE:Thin section transaxial slices were acquired through the chest with intravenous contrast per PE protocol. Coronal and sagittal reconstructed images were reviewed. FINDINGS: PULMONARY ARTERIES: There is excellent opacification of the pulmonary vasculature. No suspicious pulmonary arterial filling defects are identified to suggest pulmonary embolus. LUNGS: There is severe emphysematous changes are present in the lungs with chronic interstitial scarring bilaterally. There is stable chronic pleural-parenchymal scarring and chronic atelectasis throughout the right lung. No new airspace disease has developed in the lungs since the previous examination. PLEURAL CAVITY: There is a similar small right pleural effusion. No left pleural effusion is present. MEDIASTINUM: There is mucus in the right mainstem bronchus. HEART: There are mild coronary artery calcifications.There is no evidence of right heart strain. VASCULAR:No aneurysm or dissection of the thoracic aorta. LYMPH NODES:No suspicious lymphadenopathy. CHEST WALL/AXILLA: Chest wall and axilla are unremarkable. BONES: Endplate degenerative disc disease is present in the thoracic spine. VISUALIZED UPPER ABDOMEN: Upper abdominal structures are unremarkable. CT/CT angio chest IMPRESSION: 1. No evidence of pulmonary embolus. 2. Severe emphysematous changes in the lungs with chronic interstitial lung disease. Similar chronic pleural parenchymal scarring in the right lung along with a small right pleural effusion. No acute nodules, masses or infiltrates in the lungs. Electronically authenticated by: CHASTITY BELTRAN Date: 11/07/2023 02:51
[2023-11-07] MEDS: ONDANSETRON PF 4 MG/2 ML VIAL IV ×2 (02:37→05:06)
--- OUTSIDE RECORDS SUMMARY | 2023-11-07 04:04 | XMS_ITS | CCD ---
Author Organization [facility] CliniSynh Care Team Providers Care Head Boys Golf Coach Name Role Phone Salam, Galloway Unavailable Unavailable Salam, Galloway Unavailable Unavailable Salam, Galloway Unavailable Unavailable RYLAN ANDREA~[phone] UNKNOWN Unavailable Unavailable CUBA ESQUIVEL Unavailable Unavailable UCBA ESQUIVEL Unavailable Unavailable KEISHA GILL Referring Unavailable [...] Care Provider MD Varghese Duval Referring Provider DO Estela Varma II Attending Provider [phone] MD Rylan Andrea Primary Care Provider MD Varghese Duval Referring Provider [phone] DO Estela Varma II Attending Provider DO Kali Longo Emergency Provider MD Tez Irene Admit Provider MD Tez Irene Attending Provider MD Rylan Andrea Primary Care Provider [phone] DO Estela Varma II Other Provider MD Varghese Duval Referring Provider Adamowicz II, DO Estela J Attending Provider MD Varghese Duval Referring Provider Adamowicz II, DO Estela J Attending Provider MD Rachid Chase Attending Provider [phone] MD Varghese Duval Attending Provider Adamowicz II, DO Estela J Attending Provider [phone] MD Annette Guardado Other Provider MD Varghese Duval Referring Provider [phone] Rachid Chase Unavailable MD Rylan Andrea Primary Care Provider MD Varghese Duval Referring Provider [phone] Adamowicz II, DO Estela J Attending Provider YULY Isidor Attending Provider [phone] EMRE, DR CLAY Primary Care Unavailable ADAMOWICZ, ESTELA J Admitting Unavailable ADAMOWICZ, ESTELA J Attending Unavailable ADAMOWICZ, ESTELA J Consulting Unavailable ANDREA, DR CLAY Primary Care Unavailable ADAMOWICZ, ESTELA J Admitting Unavailable ADAMOWICZ, ESTELA J Attending Unavailable ADAMOWICZ, ESTELA J Consulting Unavailable ANDREA, DR CLAY Primary Care Unavailable ADAMOWICZ, ESTELA J Admitting Unavailable ADAMOWICZ, ESTELA J Attending Unavailable ADAMOWICZ, ESTELA J Consulting Unavailable CHASE, DR MARCE Fernandez Consulting Unavailable NADERER, DR [...] Unavailable MD Rylan Andrea Primary Care Provider [phone] MD Varghese Duval Referring Provider [phone] Adamowicz II, DO Estela Rosales Attending Provider KIKO Molina Emergency Provider MD Varghese Duval Referring Provider [phone] Adamowicz II, DO Estela Rosales Attending Provider MD Varghese Duval Referring Provider Adamowicz II, DO Estela Rosales Attending Provider Rylan Andrea MD Primary Care Provider [phone] Kailey HELP DESK SUPERVISOR, Marilu Unavailable Sanna HELP DESK SUPERVISOR, Nilsa R Unavailable [phone] Eliseo GBISON, Morenita Unavailable [phone] Carlota JIANG, Sanjuana Unavailable MD Rylan Andrea Primary Care Provider MD Varghese Duval Referring Provider [phone] Adamowicz II, DO Estela Rosales Attending Provider RYLAN ANDREA Referring Unavailable RYLAN ANDREA A [...] E; Translations: [Librium] Drug Allergy Unknown [facility] (18 sources) Lisinopril Drug Allergy 2 Unknown, Swelling of Lip/Tongue/Thro at [facility] (20 sources) Sertraline; Translations: [sertraline] Drug Allergy 2 Swelling of Lip/Tongue/Thro at [facility] (7 sources) chlordiazePOXID E; Translations: [chlordiazepoxi de] Drug Allergy 3 Edema [facility] (1 source) Amino Acids Drug Allergy [facility] (1 source) Sertraline Drug Allergy 2 [facility] (4 sources) Lisinopril Allergy to substance 3 [facility] (1 source) Lisinopril Drug Allergy 4 [facility] Repository Medications Current Medications Medication Drug Class(es) [...] tab #100 RF zero given on 12/29 [id number] 200 actuat albuterol 0.09 mg/actuat metered dose [...] (Bisacodyl)) 10 mg Suppository Discontinued 10 MG IA Q24H August 16, 2020 11:00pm September 01, [...] 9:51am docusate sodium 50 mg / sennosides, chcf 8.6 mg oral tablet (20 sources) Start: [...] 03, 2019 11:00pm December 01, 2019 12:23pm Dcmkfxcytnc-Boahuiwmp-Kcaumt er (15 sources) Anticholinergic, Corticosteroid, beta2-Adrenergic Agonist Start: 07-26-2020 End: 08-17-2020 Ceniraaqrsa-Huhxpxtfw-Vkfnmp er (Trelegy Ellipta) 100-62.5-25 mcg Blister With Device Discontinued 1 INH INHALATION Daily July 25, 2020 11:00pm August 17, 2020 8:43am Start: 07-26-2020 End: 08-17-2020 Hmuokqkxggh-Mlctbennf-Jjldtx er (Trelegy Ellipta) 100-62.5-25 mcg Blister With [...] at the same time. 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; Translations: [EXHAUST AND MUFFLER REPAIRER CURRENT USE OF ASPIRIN] Onset: 3 Episodic [...] ALT [Catalytic activity/Vol] 14 U/L Normal 7-52 [facility] Comment on above: Performed By: #### T 4F, CMP, [id number], YUSUF, CEA, FE and TIBC, LIPASE, MARILU, CBC, TSH3 ####[facility] [address] [place] [address] [place]#### METH ####[facility] , Albumin [Mass/volume] in Ser um or Plasma by Bromocresol green (BCG) dye binding methoOrdered By: Estela Varma on 06-25-2023 Albumin BCG dye [Mass/Vol] 3.9 g/dL 3.5-5.7 [facility] Alkaline phosphatase [Enzyma tic activity/volume] in Serum or PlasmaOrdered By: Estela Varma on 06-25-2023 ALP [Catalytic activity/Vol] 126 U/L High 34-104 [facility] Comment on above: Performed By: #### T 4F, CMP, [id number], YUSUF, CEA, FE and TIBC, LIPASE, MARILU, CBC, TSH3 ####[facility] [address] [place] [address] [place]#### METH ####[facility] , Amylase [Enzymatic activity/ volume] in Serum or PlasmaOrdered By: Estela Varma on 06-25-2023 Amylase [Catalytic activity/Vol] 52 U/L Normal 29-103 [facility] Comment on above: Performed By: #### T 4F, CMP, [id number], YUSUF, CEA, FE and TIBC, LIPASE, MARILU, CBC, TSH3 ####[place] [address]#### METH ####[facility] , Aspartate aminotransferase [ Enzymatic activity/volume] in Serum or PlasmaOrdered By: Estela Varma on 06-25-2023 AST [Catalytic activity/Vol] 30 U/L Normal 13-39 [facility] Comment on above: Performed By: #### T 4F, CMP, [id number], YUSUF, CEA, FE and TIBC, LIPASE, MARILU, CBC, TSH3 ####[place] [address]#### METH ####[facility] , Automated basophil %Ordered By: Estela Varma on 06-25-2023 Basophils/100 WBC (Bld) 1.3 % Normal . [facility] Comment on above: Performed By: #### T 4F, CMP, [id number], YUSUF, CEA, FE and TIBC, LIPASE, MARILU, CBC, TSH3 ####[place] [address] [place] [address] [place]#### METH ####[facility] , Automated basophil countOrde red By: Estela Varma on 06-25-2023 Basophils (Bld) [#/Vol] 0.1 10*3/uL Normal 0.0-0.2 [facility] Comment on above: Result Comment: PERF ORMED BY: [facility] [address] [place] [address] PATHOLOGIST ORTHOPEDIC BRACE MAKER CATY DELCID M.D. Performed By: #### T 4F, CMP, [id number], YUSUF, CEA, FE and TIBC, LIPASE, MARILU, CBC, TSH3 ####[facility] [place] [address] [place]#### METH ####[facility] , Automated blood monocyte cou ntOrdered By: Estela Varma on 06-25-2023 Monocytes (Bld) [#/Vol] 0.7 10*3/uL Normal 0.0-0.8 [facility] Comment on above: Performed By: #### T 4F, CMP, [id number], YUSUF, CEA, FE and TIBC, LIPASE, MARILU, CBC, TSH3 ####[facility]#### METH ####[facility] , Automated eosinophil %Ordere d By: Estela Varma on 06-25-2023 Eosinophils/100 WBC (Bld) 2.5 % Normal . [facility] Comment on above: Performed By: #### T 4F, CMP, [id number], YUSUF, CEA, FE and TIBC, LIPASE, MARILU, CBC, TSH3 ####[facility]#### METH ####[facility] , Automated eosinophil countOr dered By: Estela Varma on 06-25-2023 Eosinophils (Bld) [#/Vol] 0.2 10*3/uL Normal 0.0-0.45 [facility] Comment on above: Performed By: #### T 4F, CMP, [id number], YUSUF, CEA, FE and TIBC, LIPASE, MARILU, CBC, TSH3 ####[facility] [place] [address] [place]#### METH ####[facility] , Automated monocyte %Ordered By: Estela Varma on 06-25-2023 Monocytes/100 WBC (Bld) 8.7 % Normal . [facility] Comment on above: Performed By: #### T 4F, CMP, [id number], YUSUF, CEA, FE and TIBC, LIPASE, MARILU, CBC, TSH3 ####[facility] [place] [address] [place]#### METH ####[facility] , Automated neutrophil %Ordere d By: Estela Varma on 06-25-2023 Neutrophils/100 WBC (Bld) 78.2 % Normal . [facility] Comment on above: Performed By: #### T 4F, CMP, [id number], YUSUF, CEA, FE and TIBC, LIPASE, MARILU, CBC, TSH3 ####[facility]#### METH ####[facility] , Bilirubin.total [Mass/volume ] in Serum or PlasmaOrdered By: Estela Varma on 06-25-2023 Bilirubin [Mass/Vol] 1.0 mg/dL Normal 0.3-1.0 [facility] Comment on above: Performed By: #### T 4F, CMP, [id number], YUSUF, CEA, FE and TIBC, LIPASE, MARILU, CBC, TSH3 ####[facility] [place] [address] [place]#### METH ####[facility] , CARCINOEMBRYONIC ANTIGENon 0 06-25-2023 Interpretation and review of laboratory results Abnormal [facility] CBC W Auto Differential pane l (Bld)on 06-25-2023 Basophils (Bld) [#/Vol] 0.1 10*3/uL 0.0 - 0.2 10*3/uL [facility] Basophils/100 WBC Manual cnt (Syn fld) 1.3 % . [facility] Eosinophils (Bld) [#/Vol] 0.2 10*3/uL 0.0 - 0.45 10*3/uL [facility] Eosinophils/100 WBC Manual cnt (Syn fld) 2.5 % . [facility] Erythrocyte distribution width (RBC) [Ratio] 15.5 % High 12.0 - 14.8 % [facility] Hematocrit (Bld) [Volume fraction] 40.7 % 38.8 - 50.0 % [facility] Hemoglobin (Bld) [Mass/Vol] 13.7 g/dL 13.0 - 17.0 g/dL [facility] Interpretation and review of laboratory results Abnormal [facility] Lymphocytes (Bld) [#/Vol] 0.8 10*3/uL Low 1.00 - 4.8 10*3/uL [facility] Lymphocytes/100 WBC Manual cnt (Syn fld) 9.3 % . [facility] MCH (RBC) [Entitic mass] 32.9 pg 27.5 - 35.2 pg [facility] MCHC (RBC) [Mass/Vol] 33.7 g/dL 32.5 - 35.6 g/dL [facility] MCV (RBC) [Entitic vol] 97.6 fL 83.5 - 101 fL [facility] Monocytes (Bld) [#/Vol] 0.7 10*3/uL 0.0 - 0.8 10*3/uL [facility] Monocytes+Macrophages /100 WBC Manual cnt (Syn fld) 8.7 % . [facility] Neutrophils (Bld) [#/Vol] 6.5 10*3/uL 1.8 - 7.7 10*3/uL [facility] Neutrophils/100 WBC Manual cnt (Syn fld) 78.2 % . [facility] NRBC 0.2 /100{WBC} 0 - 0.5 /100{WBC} [facility] Platelet mean volume (Bld) [Entitic vol] 7.4 fL 6.6 - 10.1 fL [facility] Platelets (Bld) [#/Vol] 196 10*3/uL 150 - 450 10*3/uL [facility] RBC LM.HPF (Urine sed) [#/Area] 4.17 /[HPF] 3.90 - 5.60 [facility] WBC (Bld) [#/Vol] 8.4 10*3/uL 4.1 - 10.5 10*3/uL [facility] WBC LM.HPF (Urine sed) [#/Area] 8.4 10*3/uL 4.1 - 10.5 10*3/uL [facility] Calcium [Mass/volume] in Ser um or PlasmaOrdered By: Estela Varma on 06-25-2023 Calcium [Mass/Vol] 8.7 mg/dL Normal 8.6-10.3 [facility] Comment on above: Performed By: #### T 4F, CMP, [id number], YUSUF, CEA, FE and TIBC, LIPASE, MARILU, CBC, TSH3 ####[facility]#### METH ####[facility] , Capillary blood glucose ledy urement by glucometer (mass/volume)Ordered By: Estela Varma on 06-25-2023 Glucose [Mass/Vol] 97 mg/dL Normal [facility] Comment on above: Random Glucose Refer ence Range is dependent on time and content of last meal. Glucose of more than 200 mg/dL in a nonstressed, ambulatory subject supports the diagnosis of Diabetes Mellitus. Result Comment: [place] om Glucose Reference Range is dependent on time and content of last meal. Glucose of more than 200 mg/dL in a nonstressed, ambulatory subject supports the diagnosis of Diabetes Mellitus. PERFORMED BY: [facility] [address] [place] [address] PATHOLOGIST ORTHOPEDIC BRACE MAKER CATY DELCID M.D. Performed By: #### G LULS ####Point of Care testing, Carbon dioxide, total [Moles /volume] in Serum or PlasmaOrdered By: Estela Varma on 06-25-2023 CO2 [Moles/Vol] 23.2 mmol/L Normal 21.0-31.0 [facility] Comment on above: Performed By: #### T 4F, CMP, [id number], YUSUF, CEA, FE and TIBC, LIPASE, MARILU, CBC, TSH3 ####[place] [address] [address]#### METH ####[facility] , Chloride [Moles/volume] in S coral or PlasmaOrdered By: Estela Varma on 06-25-2023 Chloride [Moles/Vol] 96 mmol/L Low 98-107 [facility] Comment on above: Performed By: #### T 4F, CMP, [id number], YUSUF, CEA, FE and TIBC, LIPASE, MARILU, CBC, TSH3 ####[address]#### METH ####[facility] , Complete Blood Count Auto Di ffon 06-25-2023 Mean Corpuscular HGB Conc 33.7 g/dL Normal 32.5-35.6 [facility] Comment on above: Performed By: #### T 4F, CMP, [id number], YUSUF, CEA, FE and TIBC, LIPASE, MARILU, CBC, TSH3 ####[address]#### METH ####[facility] , NRBC% 0.2 /100{WBC} Normal 0-0.5 [facility] Comment on above: Performed By: #### T 4F, CMP, [id number], YUSUF, CEA, FE and TIBC, LIPASE, MARILU, CBC, TSH3 ####[address]#### METH ####[facility] , Comprehensive Metabolic Pane nicolas 06-25-2023 Albumin [Mass/Vol] 3.9 g/dL Normal 3.5-5.7 [facility] Comment on above: Performed By: #### T 4F, CMP, [id number], YUSUF, CEA, FE and TIBC, LIPASE, MARILU, CBC, TSH3 ####[place] [address] [place]#### METH ####[facility] , Creatinine Clr Calc Pharmacy 108.93 Normal [facility] Comment on above: Performed By: #### T 4F, CMP, [id number], YUSUF, CEA, FE and TIBC, LIPASE, MARILU, CBC, TSH3 ####[place] [address] [place]#### METH ####[facility] , GFR/1.73 sq M.predicted MDRD (S/P/Bld) [Vol rate/Area] mL/min/{1.73_m2} Normal [facility] Comment on above: Performed By: #### T 4F, CMP, [id number], YUSUF, CEA, FE and TIBC, LIPASE, MARILU, CBC, TSH3 ####[address]#### METH ####[facility] , Creatinine [Mass/volume] in Serum or PlasmaOrdered By: Estela Varma on 06-25-2023 Creatinine [Mass/Vol] 0.70 mg/dL Normal 0.70-1.30 [facility] Comment on above: Performed By: #### T 4F, CMP, [id number], YUSUF, CEA, FE and TIBC, LIPASE, MARILU, CBC, TSH3 ####[address]#### METH ####[facility] , Erythrocyte distribution wid th [Ratio] by Automated countOrdered By: Estela Varma on 06-25-2023 Erythrocyte distribution width (RBC) [Ratio] 15.5 % High 12.0-14.8 [facility] Comment on above: Performed By: #### T 4F, CMP, [id number], YUSUF, CEA, FE and TIBC, LIPASE, MARILU, CBC, TSH3 ####[place] [address] [place]#### METH ####[facility] , Erythrocytes [#/volume] in B lood by Automated countOrdered By: Estela Varma on 06-25-2023 RBC (Bld) [#/Vol] 4.17 10*6/uL Normal 3.90-5.60 [facility] Comment on above: Performed By: #### T 4F, CMP, [id number], YUSUF, CEA, FE and TIBC, LIPASE, MARILU, CBC, TSH3 ####[place] [address] [place]#### METH ####[facility] , Ferritin [Mass/volume] in Se rum or PlasmaOrdered By: Estela Varma on 06-25-2023 Ferritin [Mass/Vol] 207.7 ng/mL Normal 23.9-336.2 [facility] Comment on above: Performed By: #### T 4F, CMP, [id number], YUSUF, CEA, FE and TIBC, LIPASE, MARILU, CBC, TSH3 ####[facility] [address] [place] [id number] [facility]#### METH ####[facility] , Folate [Mass/volume] in Seru m or PlasmaOrdered By: Estela Varma on 06-25-2023 Folate [Mass/Vol] 9.6 ng/mL >5.9 [facility] Comment on above: Folate reference ran ge: >5.9 ng/mlThe WHO technical consultation on folate and vitamin [id number] has determined that folate concentrations lessthan 4 ng/ml are considered deficient. GLUCOSE POCT GLUCOMETERSon 0 06-25-2023 Glucose [Mass/Vol] 97 mg/dL [facility] Comment on above: Random Glucose Refer ence Range is dependent on time and content of last meal. Glucose of more than 200 mg/dL in a nonstressed, ambulatory subject supports the diagnosis of Diabetes Mellitus. [facility] Glucose [Mass/volume] in Ser um or PlasmaOrdered By: Estela Varma on 06-25-2023 Glucose [Mass/Vol] 89 mg/dL Normal 70-100 [facility] Comment on above: ADA recommended refe rence rangeRandom Glucose Reference Range is dependent on time and content of last meal. Glucose of more than 200 mg/dL in a nonstressed, ambulatory subject supports the diagnosis of Diabetes Mellitus. Result Comment: [place] om Glucose Reference Range is dependent on time and content of last meal. Glucose of more than 200 mg/dL in a nonstressed, ambulatory subject supports the diagnosis of Diabetes Mellitus. ADA recommended reference range Performed By: #### T 4F, CMP, [id number], YUSUF, CEA, FE and TIBC, LIPASE, MARILU, CBC, TSH3 ####[address]#### METH ####[facility] , Hematocrit [Volume Fraction] of Blood by Automated countOrdered By: Estela Varma on 06-25-2023 Hematocrit (Bld) [Volume fraction] 40.7 % Normal 38.8-50.0 [facility] Comment on above: Performed By: #### T 4F, CMP, [id number], YUSUF, CEA, FE and TIBC, LIPASE, MARILU, CBC, TSH3 ####[address]#### METH ####[facility] , Hemoglobin [Mass/volume] in BloodOrdered By: Estela Varma on 06-25-2023 Hemoglobin (Bld) [Mass/Vol] 13.7 g/dL Normal 13.0-17.0 [facility] Comment on above: Performed By: #### T 4F, CMP, [id number], YUSUF, CEA, FE and TIBC, LIPASE, MARILU, CBC, TSH3 ####[address]#### METH ####[facility] , Iron [Mass/volume] in Serum or PlasmaOrdered By: Estela Varma on 06-25-2023 Iron [Mass/Vol] 159 ug/dL Normal 50-212 [facility] Comment on above: Performed By: #### T 4F, CMP, [id number], YUSUF, CEA, FE and TIBC, LIPASE, MARILU, CBC, TSH3 ####[place] [address] [place]#### METH ####[facility] , Iron and TIBC Profileon 06-14 % Iron Saturation 65.7 % High 20-50 [facility] Comment on above: Performed By: #### T 4F, CMP, [id number], YUSUF, CEA, FE and TIBC, LIPASE, MARILU, CBC, TSH3 ####[address] [place] [address] [place]#### METH ####[facility] , Total Iron Binding Capacity 242 ug/dL Low 255-450 [facility] Comment on above: Performed By: #### T 4F, CMP, [id number], YUSUF, CEA, FE and TIBC, LIPASE, MARILU, CBC, TSH3 ####[place] [address] [place] [address] [place]#### METH ####[facility] , Iron binding capacity [Mass/ volume] in Serum or PlasmaOrdered By: Estela Varma on 06-25-2023 Iron binding capacity [Mass/Vol] 242 ug/dL 255-450 [facility] Iron saturation [Mass Fracti on] in Serum or PlasmaOrdered By: Estela Varma on 06-25-2023 Iron saturation [Mass fraction] 65.7 % 20-50 [facility] Leukocytes [#/volume] correc chris for nucleated erythrocytes in Blood by Automated counOrdered By: Estela Varma on 06-25-2023 WBC corrected for nucl RBC Auto (Bld) [#/Vol] 8.4 10*3/uL 4.1-10.5 [facility] Leukocytes [#/volume] in Blo od by Automated countOrdered By: Estela Varma on 06-25-2023 WBC (Bld) [#/Vol] 8.4 10*3/uL Normal 4.1-10.5 [facility] Comment on above: Performed By: #### T 4F, CMP, [id number], YUSUF, CEA, FE and TIBC, LIPASE, MARILU, CBC, TSH3 ####[place] [address] [place] [address] [place]#### METH ####[facility] , Lipase [Enzymatic activity/v olume] in Serum or PlasmaOrdered By: Estela Varma on 06-25-2023 Lipase [Catalytic activity/Vol] 36.0 U/L Normal 11.0-82.0 [facility] Comment on above: Performed By: #### T 4F, CMP, [id number], YUSUF, CEA, FE and TIBC, LIPASE, MARILU, CBC, TSH3 ####[address]#### METH ####[facility] , Lymphocytes [#/volume] in Bl ood by Automated countOrdered By: Estela Varma on 06-25-2023 Lymphocytes (Bld) [#/Vol] 0.8 10*3/uL Low 1.00-4.8 [facility] Comment on above: Performed By: #### T 4F, CMP, [id number], YUSUF, CEA, FE and TIBC, LIPASE, MARILU, CBC, TSH3 ####[address]#### METH ####[facility] , Lymphocytes/100 leukocytes i n Blood by Automated countOrdered By: Estela Varma on 06-25-2023 Lymphocytes/100 WBC (Bld) 9.3 % Normal . [facility] Comment on above: Performed By: #### T 4F, CMP, [id number], YUSUF, CEA, FE and TIBC, LIPASE, MARILU, CBC, TSH3 ####[address]#### METH ####[facility] , MCH [Entitic mass] by Automa chris countOrdered By: Estela Varma on 06-25-2023 MCH (RBC) [Entitic mass] 32.9 pg Normal 27.5-35.2 [facility] Comment on above: Performed By: #### T 4F, CMP, [id number], YUSUF, CEA, FE and TIBC, LIPASE, MARILU, CBC, TSH3 ####[place] [address] [place]#### METH ####[facility] , MCHC Auto (RBC) [Mass/Vol]Or dered By: Estela Varma on 06-25-2023 MCHC (RBC) [Mass/Vol] 33.7 g/dL 32.5-35.6 [facility] MCV [Entitic volume] by Auto mated countOrdered By: Estela Varma on 06-25-2023 MCV (RBC) [Entitic vol] 97.6 fL Normal 83.5-101 [facility] Comment on above: Performed By: #### T 4F, CMP, [id number], YUSUF, CEA, FE and TIBC, LIPASE, MARILU, CBC, TSH3 ####[facility]#### METH ####[facility] , Methylmalonic Acidon 024 Methylmalonic Acid 115 Normal 0-378 [facility] Comment on above: Result Comment: This test was developed and its performance characteristics determined by [facility]. It has not been cleared or approved by the Food and Drug Administration. Performed at: [facility] [address] [id number] Interior Specialist: Loc De Jesus MD, Phone: [phone] PERFORMED BY: [facility] [address] [place] [address] PATHOLOGIST ORTHOPEDIC BRACE MAKER CATY DELCID M.D. Performed By: #### T 4F, CMP, [id number], YUSUF, CEA, FE and TIBC, LIPASE, MARILU, CBC, TSH3 ####[address]#### METH ####[facility] , Neutrophils [#/volume] in Bl ood by Automated countOrdered By: Estela Varma on 06-25-2023 Neutrophils (Bld) [#/Vol] 6.5 10*3/uL Normal 1.8-7.7 [facility] Comment on above: Performed By: #### T 4F, CMP, [id number], YUSUF, CEA, FE and TIBC, LIPASE, MARILU, CBC, TSH3 ####[address]#### METH ####[facility] , No Panel InformationOrdered By: Estela Varma on 06-25-2023 Estimated GFR (CKD-EPI) > 60.0 mL/Min [facility] Creatinine Clearance (Chem 108.93 [facility] Nucleated erythrocytes [Pres ence] in Blood by Automated countOrdered By: Estela Varma on 06-25-2023 Nucleated RBC Auto Ql (Bld) 0.2 /100{WBC} 0-0.5 [facility] PET tumor subq tx strat sb-m ton 06-25-2023 PET tumor subq tx strat sb-mt [facility] [place] [address] [place] [address] Nuclear Medicine Report Signed Patient: Kirill Echols MR#: [id number] 194 : 1965 Acct:[id number] Age/Sex: 58 / M ADM Date: 06/25/23 Loc: Room: Type: [facility] RCR Attending Dr: Estela Varma II DO [...] Ellison Jr., D.O.06/25/2023 10:28 AM Dictation Location: [place] [address] Transcribed By: MARU 06/25/23 1028 Dictated By: Victorino Ellison Jr, DO 06/25/23 1017 Signed By: 06/25/23 1028 Normal [facility] Platelet mean volume [Entiti c volume] in Blood by Automated countOrdered By: Estela Varma on 06-25-2023 Platelet mean volume (Bld) [Entitic vol] 7.4 fL Normal 6.6-10.1 [facility] Comment on above: Performed By: #### T 4F, CMP, [id number], YUSUF, CEA, FE and TIBC, LIPASE, MARILU, CBC, TSH3 ####[address]#### METH ####[facility] , Platelets [#/volume] in Bloo d by Automated countOrdered By: Estela Varma on 06-25-2023 Platelets (Bld) [#/Vol] 196 10*3/uL Normal 150-450 [facility] Comment on above: Performed By: #### T 4F, CMP, [id number], YUSUF, CEA, FE and TIBC, LIPASE, MARILU, CBC, TSH3 ####[address]#### METH ####[facility] , Potassium [Moles/volume] in Serum or PlasmaOrdered By: Estela Varma on 06-25-2023 Potassium [Moles/Vol] 4.2 mmol/L Normal 3.5-5.1 [facility] Comment on above: Performed By: #### T 4F, CMP, [id number], YUSUF, CEA, FE and TIBC, LIPASE, MARILU, CBC, TSH3 ####[address]#### METH ####[facility] , Protein [Mass/volume] in Ser um or PlasmaOrdered By: Estela Varma on 06-25-2023 Protein [Mass/Vol] 6.9 g/dL Normal 6.4-8.9 [facility] Comment on above: Performed By: #### T 4F, CMP, [id number], YUSUF, CEA, FE and TIBC, LIPASE, MARILU, CBC, TSH3 ####[place] [id number] [address]#### METH ####[facility] , Serum globulin measurement b y calculation (mass/volume)Ordered By: Estela Varma on 06-25-2023 Globulin (S) [Mass/Vol] 3.0 g/dL [facility] Comment on above: Performed By: #### T 4F, CMP, [id number], YUSUF, CEA, FE and TIBC, LIPASE, MARILU, CBC, TSH3 ####[address]#### METH ####[facility] , Serum or plasma albumin/glob ulin mass ratioOrdered By: Estela Varma on 06-25-2023 Albumin/Globulin [Mass ratio] 1.3 {ratio} [facility] Comment on above: Performed By: #### T 4F, CMP, [id number], YUSUF, CEA, FE and TIBC, LIPASE, MARILU, CBC, TSH3 ####[address]#### METH ####[facility] , Serum or plasma anion gap de terminationOrdered By: Estela Varma on 06-25-2023 Anion gap [Moles/Vol] 11.0 mmol/L Normal 6.0-15.0 [facility] Comment on above: Performed By: #### T 4F, CMP, [id number], YUSUF, CEA, FE and TIBC, LIPASE, MARILU, CBC, TSH3 ####[address]#### METH ####[facility] , Serum or plasma carcinoembry onic antigen measurement (mass/volume)Ordered By: Estela Varma on 06-25-2023 Carcinoembryonic Ag [Mass/Vol] 9.4 ng/mL 0.0-3.0 [facility] Comment on above: Serial tumor marker results determined by assays using different manufacturers or methods may not be comparable.[facility] care trainer and method:VALENTINE UNICEL DXI, 2 SITE IMMUNOENZYMATIC SANDWICH ASSAY. Sodium [Moles/volume] in Ser um or PlasmaOrdered By: Estela Varma on 06-25-2023 Sodium [Moles/Vol] 126 mmol/L Low 136-145 [facility] Comment on above: Performed By: #### T 4F, CMP, [id number], YUSUF, CEA, FE and TIBC, LIPASE, MARILU, CBC, TSH3 ####[place] [id number] [address]#### METH ####[facility] , Thyrotropin [Units/volume] i n Serum or PlasmaOrdered By: Estela Varma on 06-25-2023 TSH Qn 9.92 m[IU]/L High 0.45-5.33 [facility] Comment on above: Result Comment: PERF ORMED BY: [facility] [address] [place] [address] PATHOLOGIST [employer]THOP[employer] MAKER CATY DELCID M.D. Performed By: #### T 4F, CMP, [id number], YUSUF, CEA, FE and TIBC, LIPASE, MARILU, CBC, TSH3 ####[address]#### METH ####[facility] , Thyroxine (T4) free [Mass/vo lume] in Serum or PlasmaOrdered By: Estela Varma on 06-25-2023 Free T4 [Mass/Vol] 0.71 ng/dL Normal 0.61-1.12 [facility] Comment on above: Performed By: #### T 4F, CMP, [id number], YUSUF, CEA, FE and TIBC, LIPASE, MARILU, CBC, TSH3 ####[facility] [place] [address] [place]#### METH ####[facility] , Transferrin [Mass/volume] in Serum or PlasmaOrdered By: Estela Varma on 06-25-2023 Transferrin [Mass/Vol] 173 mg/dL Low 203-362 [facility] Comment on above: Performed By: #### T 4F, CMP, [id number], YUSUF, CEA, FE and TIBC, LIPASE, MARILU, CBC, TSH3 ####[facility] [place] [address] [place]#### METH ####[facility] , Urea nitrogen [Mass/volume] in Serum or PlasmaOrdered By: Estela Varma on 06-25-2023 Urea nitrogen [Mass/Vol] 5 mg/dL Low 7-25 [facility] Comment on above: Performed By: #### T 4F, CMP, [id number], YUSUF, CEA, FE and TIBC, LIPASE, MARILU, CBC, TSH3 ####[place] [address] [address]#### METH ####[facility] , Vit. B12/Folate Profileon Folate 9.6 ng/mL Normal >5.9 [facility] Comment on above: Result Comment: Estrella te reference range: >5.9 ng/ml The WHO technical consultation on folate and vitamin b12 deficiencies has determined that folate concentrations less than 4 ng/ml are considered deficient. Performed By: #### T 4F, CMP, [id number], YUSUF, CEA, FE and TIBC, LIPASE, MARILU, CBC, TSH3 ####[facility] [place] [address] [place]#### METH ####[facility] , Vitamin B12 ser/plasOrdered By: Estela Varma on 06-25-2023 Cobalamin (Vitamin B12) [Mass/Vol] 309 pg/mL Normal 180-914 [facility] Comment on above: Performed By: #### T 4F, CMP, [id number], YUSUF, CEA, FE and TIBC, LIPASE, MARILU, CBC, TSH3 ####[facility]#### METH ####[facility] , Amylaseon 03-30-2023 Amylase [Catalytic activity/Vol] 48 U/L Normal 29-103 [facility] Comment on above: Performed By: #### F E and TIBC, T4F, CMP, B12, FOL, CBC, CEA, MARILU, LIPASE #### [address] #### METH #### [facility] , Complete Blood Count Auto Di ffon 03-30-2023 Basophils (Bld) [#/Vol] 0.0 10*3/uL Normal 0.0-0.2 [facility] Comment on above: Result Comment: PERF ORMED BY: [place] [address] PATHOLOGIST ORTHOPEDIC [employer]ACE MAKER CATY DELCID M.D. Performed By: #### F E and TIBC, T4F, CMP, B12, FOL, CBC, CEA, MARILU, LIPASE #### [address] #### METH #### [facility] , Basophils/100 WBC (Bld) 0.6 % Normal . [facility] Comment on above: Performed By: #### F E and TIBC, T4F, CMP, B12, FOL, CBC, CEA, MARILU, LIPASE #### [address] #### METH #### [facility] , Eosinophils (Bld) [#/Vol] 0.2 10*3/uL Normal 0.0-0.45 [facility] Comment on above: Performed By: #### F E and TIBC, T4F, CMP, B12, FOL, CBC, CEA, MARILU, LIPASE #### [address] [place] [address] [place] #### METH #### [facility] , Eosinophils/100 WBC (Bld) 4.8 % Normal . [facility] Comment on above: Performed By: #### F E and TIBC, T4F, CMP, B12, FOL, CBC, CEA, MARILU, LIPASE #### [address] #### METH #### [facility] , Erythrocyte distribution width (RBC) [Ratio] 15.7 % High 12.0-14.8 [facility] Comment on above: Performed By: #### F E and TIBC, T4F, CMP, B12, FOL, CBC, CEA, MARILU, LIPASE #### [address] #### METH #### [facility] , Hematocrit (Bld) [Volume fraction] 39.3 % Normal 38.8-50.0 [facility] Comment on above: Performed By: #### F E and TIBC, T4F, CMP, B12, FOL, CBC, CEA, MARILU, LIPASE #### [address] #### METH #### [facility] , Hemoglobin (Bld) [Mass/Vol] 13.3 g/dL Normal 13.0-17.0 [facility] Comment on above: Performed By: #### F E and TIBC, T4F, CMP, B12, FOL, CBC, CEA, MARILU, LIPASE #### [address] #### METH #### [facility] , Lymphocytes (Bld) [#/Vol] 0.8 10*3/uL Low 1.00-4.8 [facility] Comment on above: Performed By: #### F E and TIBC, T4F, CMP, B12, FOL, CBC, CEA, MARILU, LIPASE #### [address] #### METH #### [facility] , Lymphocytes/100 WBC (Bld) 14.7 % Normal . [facility] Comment on above: Performed By: #### F E and TIBC, T4F, CMP, B12, FOL, CBC, CEA, MARILU, LIPASE #### [address] #### METH #### [facility] , MCH (RBC) [Entitic mass] 33.1 pg Normal 27.5-35.2 [facility] Comment on above: Performed By: #### F E and TIBC, T4F, CMP, B12, FOL, CBC, CEA, MARILU, LIPASE #### [address] #### METH #### [facility] , MCV (RBC) [Entitic vol] 98.1 fL Normal 83.5-101 [facility] Comment on above: Performed By: #### F E and TIBC, T4F, CMP, B12, FOL, CBC, CEA, MARILU, LIPASE #### [place] [address] [place] #### METH #### [facility] , Mean Corpuscular HGB Conc 33.8 g/dL Normal 32.5-35.6 [facility] Comment on above: Performed By: #### F E and TIBC, T4F, CMP, B12, FOL, CBC, CEA, MARILU, LIPASE #### [address] #### METH #### [facility] , Monocytes (Bld) [#/Vol] 0.6 10*3/uL Normal 0.0-0.8 [facility] Comment on above: Performed By: #### F E and TIBC, T4F, CMP, B12, FOL, CBC, CEA, MARILU, LIPASE #### [facility] [address] [place] [address] [place] #### METH #### [facility] , Monocytes/100 WBC (Bld) 12.2 % Normal . [facility] Comment on above: Performed By: #### F E and TIBC, T4F, CMP, B12, FOL, CBC, CEA, MARILU, LIPASE #### [place] [address] [place] #### METH #### [facility] , Neutrophils (Bld) [#/Vol] 3.5 10*3/uL Normal 1.8-7.7 [facility] Comment on above: Performed By: #### F E and TIBC, T4F, CMP, B12, FOL, CBC, CEA, MARILU, LIPASE #### [address] #### METH #### [facility] , Neutrophils/100 WBC (Bld) 67.7 % Normal . [facility] Comment on above: Performed By: #### F E and TIBC, T4F, CMP, B12, FOL, CBC, CEA, MARILU, LIPASE #### [place] [address] [place] #### METH #### [facility] , NRBC% 0.1 /100{WBC} Normal 0-0.5 [facility] Comment on above: Performed By: #### F E and TIBC, T4F, CMP, B12, FOL, CBC, CEA, MARILU, LIPASE #### [place] [address] [place] #### METH #### [facility] , Platelet mean volume (Bld) [Entitic vol] 7.3 fL Normal 6.6-10.1 [facility] Comment on above: Performed By: #### F E and TIBC, T4F, CMP, B12, FOL, CBC, CEA, MARILU, LIPASE #### [place] [address] [place] #### METH #### [facility] , Platelets (Bld) [#/Vol] 155 10*3/uL Normal 150-450 [facility] Comment on above: Performed By: #### F E and TIBC, T4F, CMP, B12, FOL, CBC, CEA, MARILU, LIPASE #### [address] #### METH #### [facility] , RBC (Bld) [#/Vol] 4.00 10*6/uL Normal 3.90-5.60 [facility] Comment on above: Performed By: #### F E and TIBC, T4F, CMP, B12, FOL, CBC, CEA, MARILU, LIPASE #### [place] [address] [place] #### METH #### [facility] , WBC (Bld) [#/Vol] 5.2 10*3/uL Normal 4.1-10.5 [facility] Comment on above: Performed By: #### F E and TIBC, T4F, CMP, B12, FOL, CBC, CEA, MARILU, LIPASE #### [place] [address] [place] #### METH #### [facility] , Comprehensive Metabolic Pane nicolas 03-30-2023 Albumin [Mass/Vol] 3.9 g/dL Normal 3.5-5.7 [facility] Comment on above: Performed By: #### F E and TIBC, T4F, CMP, B12, FOL, CBC, CEA, MARILU, LIPASE #### [place] [address] [place] #### METH #### [facility] , Albumin/Globulin [Mass ratio] 1.3 {ratio} Normal [facility] Comment on above: Performed By: #### F E and TIBC, T4F, CMP, B12, FOL, CBC, CEA, MARILU, LIPASE #### [place] [address] [place] #### METH #### [facility] , ALP [Catalytic activity/Vol] 136 U/L High 34-104 [facility] Comment on above: Performed By: #### F E and TIBC, T4F, CMP, B12, FOL, CBC, CEA, MARILU, LIPASE #### [address] #### METH #### [facility] , ALT [Catalytic activity/Vol] 11 U/L Normal 7-52 [facility] Comment on above: Performed By: #### F E and TIBC, T4F, CMP, B12, FOL, CBC, CEA, MARILU, LIPASE #### [place] [address] [place] #### METH #### [facility] , Anion gap [Moles/Vol] 10.4 mmol/L Normal 6.0-15.0 [facility] Comment on above: Performed By: #### F E and TIBC, T4F, CMP, B12, FOL, CBC, CEA, MARILU, LIPASE #### [address] #### METH #### [facility] , AST [Catalytic activity/Vol] 18 U/L Normal 13-39 [facility] Comment on above: Performed By: #### F E and TIBC, T4F, CMP, B12, FOL, CBC, CEA, MARILU, LIPASE #### [facility] [address] [place] [address] [place] #### METH #### [facility] , Bilirubin [Mass/Vol] 0.7 mg/dL Normal 0.3-1.0 [facility] Comment on above: Performed By: #### F E and TIBC, T4F, CMP, B12, FOL, CBC, CEA, MARILU, LIPASE #### [facility] [address] [place] [address] [place] #### METH #### [facility] , Calcium [Mass/Vol] 8.5 mg/dL Low 8.6-10.3 [facility] Comment on above: Performed By: #### F E and TIBC, T4F, CMP, B12, FOL, CBC, CEA, MARILU, LIPASE #### [address] #### METH #### [facility] , Chloride [Moles/Vol] 102 mmol/L Normal 98-107 [facility] Comment on above: Performed By: #### F E and TIBC, T4F, CMP, B12, FOL, CBC, CEA, MARILU, LIPASE #### [place] [address] [place] #### METH #### [facility] , CO2 [Moles/Vol] 21.7 mmol/L Normal 21.0-31.0 [facility] Comment on above: Performed By: #### F E and TIBC, T4F, CMP, B12, FOL, CBC, CEA, MARILU, LIPASE #### [address] #### METH #### [facility] , Creatinine [Mass/Vol] 0.80 mg/dL Normal 0.70-1.30 [facility] Comment on above: Performed By: #### F E and TIBC, T4F, CMP, B12, FOL, CBC, CEA, MARILU, LIPASE #### [place] [address] [place] #### METH #### [facility] , Creatinine Clr Calc Pharmacy 96.47 Normal [facility] Comment on above: Performed By: #### F E and TIBC, T4F, CMP, B12, FOL, CBC, CEA, MARILU, LIPASE #### [place] [address] [place] #### METH #### [facility] , GFR/1.73 sq M.predicted MDRD (S/P/Bld) [Vol rate/Area] mL/min/{1.73_m2} Normal [facility] Comment on above: Performed By: #### F E and TIBC, T4F, CMP, B12, FOL, CBC, CEA, MARILU, LIPASE #### [place] [address] [place] #### METH #### [facility] , Globulin (S) [Mass/Vol] 2.9 g/dL Normal [facility] Comment on above: Performed By: #### F E and TIBC, T4F, CMP, B12, FOL, CBC, CEA, MARILU, LIPASE #### [place] [address] [place] #### METH #### [facility] , Glucose [Mass/Vol] 84 mg/dL Normal 70-100 [facility] Comment on above: Result Comment: [place] Glucose Reference Range is dependent on time and content of last meal. Glucose of more than 200 mg/dL in a nonstressed, ambulatory subject supports the diagnosis of Diabetes Mellitus. ADA recommended reference range Performed By: #### F E and TIBC, T4F, CMP, B12, FOL, CBC, CEA, MARILU, LIPASE #### [place] [address] [place] #### METH #### [facility] , Potassium [Moles/Vol] 4.1 mmol/L Normal 3.5-5.1 [facility] Comment on above: Performed By: #### F E and TIBC, T4F, CMP, B12, FOL, CBC, CEA, MARILU, LIPASE #### [place] [address] [place] #### METH #### [facility] , Protein [Mass/Vol] 6.8 g/dL Normal 6.4-8.9 [facility] Comment on above: Performed By: #### F E and TIBC, T4F, CMP, B12, FOL, CBC, CEA, MARILU, LIPASE #### [place] [address] [place] #### METH #### [facility] , Sodium [Moles/Vol] 130 mmol/L Low 136-145 [facility] Comment on above: Performed By: #### F E and TIBC, T4F, CMP, B12, FOL, CBC, CEA, MARILU, LIPASE #### [place] [address] [place] #### METH #### [facility] , Urea nitrogen [Mass/Vol] 5 mg/dL Low 7-25 [facility] Comment on above: Performed By: #### F E and TIBC, T4F, CMP, B12, FOL, CBC, CEA, MARILU, LIPASE #### [place] [address] [place] #### METH #### [facility] , Folateon 03-30-2023 Folate 15.4 ng/mL Normal >5.9 [facility] Comment on above: Result Comment: Estrella te reference range: >5.9 ng/ml The WHO technical consultation on folate and vitamin b12 deficiencies has determined that folate concentrations less than 4 ng/ml are considered deficient. Performed By: #### F E and TIBC, T4F, CMP, B12, FOL, CBC, CEA, MARILU, LIPASE #### [address] #### METH #### [facility] , Free T4 (Free Thyroxine)on 05-30-2022 Free T4 [Mass/Vol] 0.50 ng/dL Low 0.61-1.12 [facility] Comment on above: Result Comment: PERF ORMED BY: [place] [address] PATHOLOGIST ORTHOPEDIC BRACE MAKER CATY DELCID M.D. Performed By: #### F E and TIBC, T4F, CMP, B12, FOL, CBC, CEA, MARILU, LIPASE ####[facility] [place] [address] [place]#### METH ####[facility] , Iron and TIBC Profileon 11 % Iron Saturation 67.5 % High 20-50 [facility] Comment on above: Performed By: #### F E and TIBC, T4F, CMP, B12, FOL, CBC, CEA, MARILU, LIPASE #### [place] [address] [place] #### METH #### [facility] , Iron [Mass/Vol] 154 ug/dL Normal 50-[address] [facility] Comment on above: Performed By: #### F E and TIBC, T4F, CMP, B12, FOL, CBC, CEA, MARILU, LIPASE #### [facility] [address] [place] [address] [place] #### METH #### [facility] , Total Iron Binding Capacity 228 ug/dL Low 255-450 [facility] Comment on above: Performed By: #### F E and TIBC, T4F, CMP, B12, FOL, CBC, CEA, MARILU, LIPASE #### [facility] [address] [place] [address] [place] #### METH #### [facility] , Transferrin [Mass/Vol] 163 mg/dL Low 203-362 [facility] Comment on above: Performed By: #### F E and TIBC, T4F, CMP, B12, FOL, CBC, CEA, MARILU, LIPASE #### [facility] [address] [place] [address] [place] #### METH #### [facility] , Lipaseon 03-30-2023 Lipase [Catalytic activity/Vol] 22.0 U/L Normal 11.0-82.0 [facility] Comment on above: Performed By: #### F E and TIBC, T4F, CMP, B12, FOL, CBC, CEA, MARILU, LIPASE #### [facility] [address] [place] [address] [place] #### METH #### [facility] , Methylmalonic Acidon 023 Methylmalonic Acid 129 Normal 0-378 [facility] Comment on above: Result Comment: This test was developed and its performance characteristics determined by [facility]. It has not been cleared or approved by the Food and Drug Administration. Performed at: [address] [id number] Interior Specialist: Loc De Jesus MD, Phone: [phone] PERFORMED BY: [place] [address] PATHOLOGIST ORTHOPEDIC [employer] MAKER CATY DELCID M.D. Performed By: #### F E and TIBC, T4F, CMP, B12, FOL, CBC, CEA, MARILU, LIPASE ####[facility] [id number]#### METH ####[facility] , Serum or plasma methylmalona te measurement (moles/volume)Ordered By: Estela Varma on 03-30-2023 Methylmalonate [Moles/Vol] 129 nmol/L 0-378 [facility] Comment on above: This test was develo ped and its performance characteristicsdetermined by [facility]. It has not been cleared orapproved by the Food and Drug Administration.Performed at: [address] [id number] Director: Loc De Jesus MD, Phone: [phone] Vitamin B12on 03-30-2023 Cobalamin (Vitamin B12) [Mass/Vol] 462 pg/mL Normal 180-914 [facility] Comment on above: Performed By: #### F E and TIBC, T4F, CMP, B12, FOL, CBC, CEA, MARILU, LIPASE #### [facility] [address] [place] [address] [place] #### METH #### [facility] , Alanine aminotransferase [En zymatic activity/volume] in Serum or PlasmaOrdered By: Estela aVrma on 12-22-2022 ALT [Catalytic activity/Vol] 13 U/L Normal 7-52 [facility] Comment on above: Performed By: #### C BC, CMP ####[address] Albumin [Mass/volume] in Ser um or Plasma by Bromocresol green (BCG) dye binding methoOrdered By: Estela Varma on 12-22-2022 Albumin BCG dye [Mass/Vol] 3.7 g/dL 3.5-5.7 [facility] Alkaline phosphatase [Enzyma tic activity/volume] in Serum or PlasmaOrdered By: Estela Varma on 12-22-2022 ALP [Catalytic activity/Vol] 122 U/L High 34-104 [facility] Comment on above: Performed By: #### C BC, CMP ####[address] Aspartate aminotransferase [ Enzymatic activity/volume] in Serum or PlasmaOrdered By: Estela Varma on 12-22-2022 AST [Catalytic activity/Vol] 17 U/L Normal 13-39 [facility] Comment on above: Performed By: #### C BC, CMP ####[address] Automated basophil %Ordered By: Estela Varma on 12-22-2022 Basophils/100 WBC (Bld) 1.3 % Normal . [facility] Comment on above: Performed By: #### C BC, CMP ####[address] Automated basophil countOrde red By: Estela Varma on 12-22-2022 Basophils (Bld) [#/Vol] 0.1 10*3/uL Normal 0.0-0.2 [facility] Comment on above: Result Comment: PERF ORMED BY: [facility] [address] [place] [address] PATHOLOGIST ORTHOPEDIC [employer]ACE MAKER CATY DELCID M.D. Performed By: #### C BC, CMP ####[place] [id number] [facility] Automated blood monocyte cou ntOrdered By: Estela Varma on 12-22-2022 Monocytes (Bld) [#/Vol] 0.5 10*3/uL Normal 0.0-0.8 [facility] Comment on above: Performed By: #### C BC, CMP ####[address] Automated eosinophil %Ordere d By: Estela Varma on 12-22-2022 Eosinophils/100 WBC (Bld) 5.0 % Normal . [facility] Comment on above: Performed By: #### C BC, CMP ####[address] Automated eosinophil countOr dered By: Estela Varma on 12-22-2022 Eosinophils (Bld) [#/Vol] 0.3 10*3/uL Normal 0.0-0.45 [facility] Comment on above: Performed By: #### C BC, CMP ####[address] Automated monocyte %Ordered By: Estela Varma on 12-22-2022 Monocytes/100 WBC (Bld) 7.8 % Normal . [facility] Comment on above: Performed By: #### C BC, CMP ####[address] Automated neutrophil %Ordere d By: Estela Varma on 12-22-2022 Neutrophils/100 WBC (Bld) 70.2 % Normal . [facility] Comment on above: Performed By: #### C BC, CMP ####[address] Bilirubin.total [Mass/volume ] in Serum or PlasmaOrdered By: Estela Varma on 12-22-2022 Bilirubin [Mass/Vol] 0.5 mg/dL Normal 0.3-1.0 [facility] Comment on above: Performed By: #### C BC, CMP ####[address] Calcium [Mass/volume] in Ser um or PlasmaOrdered By: Estela Varma on 12-22-2022 Calcium [Mass/Vol] 8.0 mg/dL Low 8.6-10.3 [facility] Comment on above: Performed By: #### C BC, CMP ####[place] [id number] [place] [id number] [facility] Capillary blood glucose ledy urement by glucometer (mass/volume)Ordered By: Estela Varma on 12-22-2022 Glucose [Mass/Vol] 71 mg/dL Normal [facility] Comment on above: Random Glucose Refer ence Range is dependent on time and content of last meal. Glucose of more than 200 mg/dL in a nonstressed, ambulatory subject supports the diagnosis of Diabetes Mellitus. Result Comment: [place] om Glucose Reference Range is dependent on time and content of last meal. Glucose of more than 200 mg/dL in a nonstressed, ambulatory subject supports the diagnosis of Diabetes Mellitus. PERFORMED BY: [facility] [address] [place] [address] PATHOLOGIST ORTHOPEDIC [employer] MAKER CATY DELCID M.D. Performed By: #### G TERRY ####Point of Care testing, Carbon dioxide, total [Moles /volume] in Serum or PlasmaOrdered By: Estela Varma on 12-22-2022 CO2 [Moles/Vol] 23.2 mmol/L Normal 21.0-31.0 [facility] Comment on above: Performed By: #### C BC, CMP ####[place] [id number] [facility] Chloride [Moles/volume] in S coral or PlasmaOrdered By: Estela Varma on 12-22-2022 Chloride [Moles/Vol] 100 mmol/L Normal 98-107 [facility] Comment on above: Performed By: #### C BC, CMP ####[place] [id number] [place] [id number] [facility] Complete Blood Count Auto Di ffon 12-22-2022 Mean Corpuscular HGB Conc 33.5 g/dL Normal 32.5-35.6 [facility] Comment on above: Performed By: #### C BC, CMP ####[place] [id number] [facility] NRBC% 0.0 /100{WBC} Normal 0-0.5 [facility] Comment on above: Performed By: #### C BC, CMP ####[address] Comprehensive Metabolic Pane nicolas 12-22-2022 Albumin [Mass/Vol] 3.7 g/dL Normal 3.5-5.7 [facility] Group Comment on above: Performed By: #### C BC, CMP ####[address] Creatinine Clr Calc Pharmacy 114.05 Normal [facility] Comment on above: Result Comment: PERF ORMED BY: [facility] [address] [place] [address] PATHOLOGIST ORTHOPEDIC BRACE MAKER CATY DELCID M.D. Performed By: #### C BC, CMP ####[address] GFR/1.73 sq M.predicted MDRD (S/P/Bld) [Vol rate/Area] mL/min/{1.73_m2} Normal [facility] Comment on above: Performed By: #### C BC, CMP ####[address] Creatinine [Mass/volume] in Serum or PlasmaOrdered By: Estela Varma on 12-22-2022 Creatinine [Mass/Vol] 0.69 mg/dL Low 0.70-1.30 [facility] Comment on above: Performed By: #### C BC, CMP ####[address] Erythrocyte distribution wid th [Ratio] by Automated countOrdered By: Estela Varma on 12-22-2022 Erythrocyte distribution width (RBC) [Ratio] 16.0 % High 12.0-14.8 [facility] Comment on above: Performed By: #### C BC, CMP ####[address] Erythrocytes [#/volume] in B lood by Automated countOrdered By: Estela Varma on 12-22-2022 RBC (Bld) [#/Vol] 4.17 10*6/uL Normal 3.90-5.60 [facility] Comment on above: Performed By: #### C KAYY, CMP ####[place] [id number] [facility] Glucose [Mass/volume] in Ser um or PlasmaOrdered By: Estela Varma on 12-22-2022 Glucose [Mass/Vol] 65 mg/dL Low 70-100 [facility] Comment on above: ADA recommended refe rence rangeRandom Glucose Reference Range is dependent on time and content of last meal. Glucose of more than 200 mg/dL in a nonstressed, ambulatory subject supports the diagnosis of Diabetes Mellitus. Result Comment: [place] Glucose Reference Range is dependent on time and content of last meal. Glucose of more than 200 mg/dL in a nonstressed, ambulatory subject supports the diagnosis of Diabetes Mellitus. ADA recommended reference range Performed By: #### C KAYY, CMP ####[place] [id number] [facility] Hematocrit [Volume Fraction] of Blood by Automated countOrdered By: Estela Varma on 12-22-2022 Hematocrit (Bld) [Volume fraction] 39.6 % Normal 38.8-50.0 [facility] Comment on above: Performed By: #### C KAYY, CMP ####[place] [id number] [facility] Hemoglobin [Mass/volume] in BloodOrdered By: Estela Varma on 12-22-2022 Hemoglobin (Bld) [Mass/Vol] 13.3 g/dL Normal 13.0-17.0 [facility] Comment on above: Performed By: #### C KAYY, CMP ####[place] [id number] [facility] Leukocytes [#/volume] correc chris for nucleated erythrocytes in Blood by Automated counOrdered By: Estela Varma on 12-22-2022 WBC corrected for nucl RBC Auto (Bld) [#/Vol] 6.0 10*3/uL 4.1-10.5 [facility] Leukocytes [#/volume] in Blo od by Automated countOrdered By: Estela Varma on 12-22-2022 WBC (Bld) [#/Vol] 6.0 10*3/uL Normal 4.1-10.5 [facility] Comment on above: Performed By: #### C BC, CMP ####[address] Lymphocytes [#/volume] in Bl ood by Automated countOrdered By: Estela Varma on 12-22-2022 Lymphocytes (Bld) [#/Vol] 0.9 10*3/uL Low 1.00-4.8 [facility] Comment on above: Performed By: #### C KAYY, CMP ####[address] Lymphocytes/100 leukocytes i n Blood by Automated countOrdered By: Estela Varma on 12-22-2022 Lymphocytes/100 WBC (Bld) 15.7 % Normal . [facility] Comment on above: Performed By: #### C BC, CMP ####[address] MCH [Entitic mass] by Automa chris countOrdered By: Estela Varma on 12-22-2022 MCH (RBC) [Entitic mass] 31.9 pg Normal 27.5-35.2 [facility] Comment on above: Performed By: #### C BC, CMP ####[address] MCHC Auto (RBC) [Mass/Vol]Or dered By: Estela Varma on 12-22-2022 MCHC (RBC) [Mass/Vol] 33.5 g/dL 32.5-35.6 [facility] MCV [Entitic volume] by Auto mated countOrdered By: Estela Varma on 12-22-2022 MCV (RBC) [Entitic vol] 95.0 fL Normal 83.5-101 [facility] Comment on above: Performed By: #### C BC, CMP ####[facility] [id number] Neutrophils [#/volume] in Bl ood by Automated countOrdered By: Estela Varma on 12-22-2022 Neutrophils (Bld) [#/Vol] 4.2 10*3/uL Normal 1.8-7.7 [facility] Comment on above: Performed By: #### C BC, CMP ####[facility] [id number] No Panel InformationOrdered By: Estela Varma on 12-22-2022 Estimated GFR (CKD-EPI) > 60.0 mL/Min [facility] Creatinine Clearance (Chem 114.05 [facility] Nucleated erythrocytes [Pres ence] in Blood by Automated countOrdered By: Estela Varma on 12-22-2022 Nucleated RBC Auto Ql (Bld) 0.0 /100{WBC} 0-0.5 [facility] PET tumor subq tx strat sb-m ton 12-22-2022 PET tumor subq tx strat sb-mt [facility] [place] [address] Nuclear Medicine Report Signed Patient: Kirill Echols MR#: [id number] : 1965 Acct:[id number] Age/Sex: 57 / M ADM Date: 12/22/22 Loc: Room: Type: [facility] Attending Dr: Estela Varma II DO Copies [...] Ellison Jr., Wesley12/22/2022 11:42 AM Dictation Location: [place] [address] Transcribed By: [facility] 12/22/22 1142 Dictated By: Victorino Ellison Jr, DO 12/22/22 1135 Signed By: 12/22/22 1142 Normal [facility] Platelet mean volume [Entiti c volume] in Blood by Automated countOrdered By: Estela Varma on 12-22-2022 Platelet mean volume (Bld) [Entitic vol] 6.9 fL Normal 6.6-10.1 [facility] Comment on above: Performed By: #### C BC, CMP ####[place] [address] [place] [address] [facility] Platelets [#/volume] in Bloo d by Automated countOrdered By: Estela Varma on 12-22-2022 Platelets (Bld) [#/Vol] 177 10*3/uL Normal 150-450 [facility] Comment on above: Performed By: #### C BC, CMP ####[place] [address] [place] [address] [place] Potassium [Moles/volume] in Serum or PlasmaOrdered By: Estela Varma on 12-22-2022 Potassium [Moles/Vol] 4.2 mmol/L Normal 3.5-5.1 [facility] Comment on above: Performed By: #### C BC, CMP ####[place] [address] [place] [address] [facility] Protein [Mass/volume] in Ser um or PlasmaOrdered By: Estela Varma on 12-22-2022 Protein [Mass/Vol] 6.0 g/dL Low 6.4-8.9 [facility] Comment on above: Performed By: #### C BC, CMP ####[address] Serum globulin measurement b y calculation (mass/volume)Ordered By: Estela Varma on 12-22-2022 Globulin (S) [Mass/Vol] 2.3 g/dL [facility] Comment on above: Performed By: #### C BC, CMP ####[place] [id number] [facility] Serum or plasma albumin/glob ulin mass ratioOrdered By: Estela Varma on 12-22-2022 Albumin/Globulin [Mass ratio] 1.6 {ratio} [facility] Comment on above: Performed By: #### C BC, CMP ####[address] Serum or plasma anion gap de terminationOrdered By: Estela Varma on 12-22-2022 Anion gap [Moles/Vol] 8.0 mmol/L Normal 6.0-15.0 [facility] Comment on above: Performed By: #### C BC, CMP ####[address] Sodium [Moles/volume] in Ser um or PlasmaOrdered By: Estela Varma on 12-22-2022 Sodium [Moles/Vol] 127 mmol/L Low 136-145 [facility] Comment on above: Performed By: #### C BC, CMP ####[place] [id number] [facility] Urea nitrogen [Mass/volume] in Serum or PlasmaOrdered By: Estela Varma on 12-22-2022 Urea nitrogen [Mass/Vol] 6 mg/dL Low 7-25 [facility] Comment on above: Performed By: #### C BC, CMP ####[place] [id number] [facility] Alanine aminotransferase [En zymatic activity/volume] in Serum or PlasmaOrdered By: Estela Varma on 10-26-2022 ALT [Catalytic activity/Vol] 12 U/L Normal 7-52 [facility] Comment on above: Performed By: #### C BC, ESR, CMP, FE and TIBC, YUSUF, [id number], CEA ####[place] [address] [place] [address] [place]#### EPO ####[facility] , Albumin [Mass/volume] in Ser um or Plasma by Bromocresol green (BCG) dye binding methoOrdered By: Estela Varma on 10-26-2022 Albumin BCG dye [Mass/Vol] 3.9 g/dL 3.5-5.7 [facility] Alkaline phosphatase [Enzyma tic activity/volume] in Serum or PlasmaOrdered By: Estela Varma on 10-26-2022 ALP [Catalytic activity/Vol] 140 U/L High 34-104 [facility] Comment on above: Performed By: #### C BC, ESR, CMP, FE and TIBC, YUSUF, [id number], CEA ####[place] [address] [place]#### EPO ####[facility] , Aspartate aminotransferase [ Enzymatic activity/volume] in Serum or PlasmaOrdered By: Estela Varma on 10-26-2022 AST [Catalytic activity/Vol] 16 U/L Normal 13-39 [facility] Comment on above: Performed By: #### C BC, ESR, CMP, FE and TIBC, YUSUF, [id number], CEA ####[place] [address] [place]#### EPO ####[facility] , Automated basophil %Ordered By: Estela Varma on 10-26-2022 Basophils/100 WBC (Bld) 0.8 % Normal . [facility] Comment on above: Performed By: #### F E and TIBC, T4F, CMP, B12, FOL, CBC, CEA, MARILU, LIPASE #### [facility] [address] [place] [address] [place] #### METH #### [facility] , Automated basophil countOrde red By: Estela Varma on 10-26-2022 Basophils (Bld) [#/Vol] 0.0 10*3/uL Normal 0.0-0.2 [facility] Comment on above: Performed By: #### F E and TIBC, T4F, CMP, B12, FOL, CBC, CEA, MARILU, LIPASE #### [place] [address] [place] #### METH #### [facility] , Automated blood monocyte cou ntOrdered By: Estela Varma on 10-26-2022 Monocytes (Bld) [#/Vol] 0.7 10*3/uL Normal 0.0-0.8 [facility] Comment on above: Performed By: #### F E and TIBC, T4F, CMP, B12, FOL, CBC, CEA, MARILU, LIPASE #### [place] [address] [place] #### METH #### [facility] , Automated eosinophil %Ordere d By: Estela Varma on 10-26-2022 Eosinophils/100 WBC (Bld) 2.6 % Normal . [facility] Comment on above: Performed By: #### F E and TIBC, T4F, CMP, B12, FOL, CBC, CEA, MARILU, LIPASE #### [place] [address] [place] #### METH #### [facility] , Automated eosinophil countOr dered By: Estela Varma on 10-26-2022 Eosinophils (Bld) [#/Vol] 0.1 10*3/uL Normal 0.0-0.45 [facility] Comment on above: Performed By: #### F E and TIBC, T4F, CMP, B12, FOL, CBC, CEA, MARILU, LIPASE #### [place] [address] [place] #### METH #### [facility] , Automated monocyte %Ordered By: Estela Varma on 10-26-2022 Monocytes/100 WBC (Bld) 12.1 % Normal . [facility] Comment on above: Performed By: #### F E and TIBC, T4F, CMP, B12, FOL, CBC, CEA, MARILU, LIPASE #### [place] [address] [place] #### METH #### [facility] , Automated neutrophil %Ordere d By: Estela Varma on 10-26-2022 Neutrophils/100 WBC (Bld) 69.5 % Normal . [facility] Comment on above: Performed By: #### F E and TIBC, T4F, CMP, B12, FOL, CBC, CEA, MARILU, LIPASE #### [place] [address] [place] #### METH #### [facility] , Bilirubin.total [Mass/volume ] in Serum or PlasmaOrdered By: Estela Varma on 10-26-2022 Bilirubin [Mass/Vol] 0.6 mg/dL Normal 0.3-1.0 [facility] Comment on above: Performed By: #### C BC, ESR, CMP, FE and TIBC, YUSUF, [id number], CEA ####[address]#### EPO ####[facility] , Calcium [Mass/volume] in Ser um or PlasmaOrdered By: Estela Varma on 10-26-2022 Calcium [Mass/Vol] 8.3 mg/dL Low 8.6-10.3 [facility] Comment on above: Performed By: #### C BC, ESR, CMP, FE and TIBC, YUSUF, [id number], CEA ####[place] [address] [place]#### EPO ####[facility] , Carbon dioxide, total [Moles /volume] in Serum or PlasmaOrdered By: Estela Varma on 10-26-2022 CO2 [Moles/Vol] 23.5 mmol/L Normal 21.0-31.0 [facility] Comment on above: Performed By: #### C BC, ESR, CMP, FE and TIBC, YUSUF, [id number], CEA ####[facility]#### EPO ####[facility] , Chloride [Moles/volume] in S coral or PlasmaOrdered By: Estela Varma on 10-26-2022 Chloride [Moles/Vol] 98 mmol/L Normal 98-107 [facility] Comment on above: Performed By: #### C BC, ESR, CMP, FE and TIBC, YUSUF, [id number], CEA ####[address]#### EPO ####[facility] , Complete Blood Count Auto Di ffon 10-26-2022 Mean Corpuscular HGB Conc 34.2 g/dL Normal 32.5-35.6 [facility] Comment on above: Performed By: #### F E and TIBC, T4F, CMP, B12, FOL, CBC, CEA, MARILU, LIPASE #### [place] [address] [place] #### METH #### [facility] , NRBC% 0.2 /100{WBC} Normal 0-0.5 [facility] Comment on above: Performed By: #### F E and TIBC, T4F, CMP, B12, FOL, CBC, CEA, MARILU, LIPASE #### [place] [address] [place] #### METH #### [facility] , Comprehensive Metabolic Pane nicolas 10-26-2022 Albumin [Mass/Vol] 3.9 g/dL Normal 3.5-5.7 [facility] Comment on above: Performed By: #### C BC, ESR, CMP, FE and TIBC, YUSUF, [id number], CEA ####[facility] [place] [address] [place]#### EPO ####[facility] , Creatinine Clr Calc Pharmacy 121.12 Normal [facility] Comment on above: Performed By: #### C BC, ESR, CMP, FE and TIBC, YUSUF, [id number], CEA ####[place] [address] [place] [address] [place]#### EPO ####[facility] , GFR/1.73 sq M.predicted MDRD (S/P/Bld) [Vol rate/Area] mL/min/{1.73_m2} Normal [facility] Comment on above: Performed By: #### C BC, ESR, CMP, FE and TIBC, YUSUF, [id number], CEA ####[address]#### EPO ####[facility] , Creatinine [Mass/volume] in Serum or PlasmaOrdered By: Estela Varma on 10-26-2022 Creatinine [Mass/Vol] 0.67 mg/dL Low 0.70-1.30 [facility] Comment on above: Performed By: #### C BC, ESR, CMP, FE and TIBC, YUSUF, [id number], CEA ####[place] [address] [place]#### EPO ####[facility] , Erythrocyte Sedimentation Ra nisa 10-26-2022 ESR (Bld) [Velocity] 16 mm/h Normal 0-19 [facility] Comment on above: Result Comment: PERF ORMED BY: [place] [address] PATHOLOGIST ORTHOPEDIC BRACE MAKER CATY DELCID M.D. Performed By: #### F E and TIBC, T4F, CMP, B12, FOL, CBC, CEA, MARILU, LIPASE #### [place] [address] [place] #### METH #### [facility] , Erythrocyte distribution wid th [Ratio] by Automated countOrdered By: Estela Varma on 10-26-2022 Erythrocyte distribution width (RBC) [Ratio] 15.0 % High 12.0-14.8 [facility] Comment on above: Performed By: #### F E and TIBC, T4F, CMP, B12, FOL, CBC, CEA, MARILU, LIPASE #### [facility] [address] [place] [address] [place] #### METH #### [facility] , Erythrocyte sedimentation ra te by Photometric methodOrdered By: Estela Varma on 10-26-2022 ESR Photometric method (Bld) [Velocity] 16 mm/hr 0-19 [facility] Erythrocytes [#/volume] in B lood by Automated countOrdered By: Estela Varma on 10-26-2022 RBC (Bld) [#/Vol] 4.17 10*6/uL Normal 3.90-5.60 [facility] Comment on above: Performed By: #### F E and TIBC, T4F, CMP, B12, FOL, CBC, CEA, MARILU, LIPASE #### [facility] [address] [place] [address] #### METH #### [facility] , Erythropoetin (EPO), Serumon 10-26-2022 Erythropoetin (EPO), Serum 15.7 m[iU]/mL Normal 2.6-18.5 [facility] Comment on above: Result Comment: [employer] DxI 800 Immunoassay System Values obtained with different assay methods or kits cannot be used interchangeably. Results cannot be interpreted as absolute evidence of the presence or absence of malignant disease. Performed at: [facility] [address] [id number] Interior Specialist: Fernando Brand PhD, Phone: [phone] PERFORMED BY: [place] [address] PATHOLOGIST ORTHOPEDIC BRACE MAKER JIANLAN SUN M.D. Performed By: #### F E and TIBC, T4F, CMP, B12, FOL, CBC, CEA, MARILU, LIPASE #### [facility] [address] [place] [address] [place] #### METH #### [facility] , Ferritin [Mass/volume] in Se rum or PlasmaOrdered By: Estela Varma on 10-26-2022 Ferritin [Mass/Vol] 225.5 ng/mL Normal 23.9-336.2 [facility] Comment on above: Performed By: #### F E and TIBC, T4F, CMP, B12, FOL, CBC, CEA, MARILU, LIPASE #### [facility] [address] [place] [address] [place] #### METH #### [facility] , Folate [Mass/volume] in Seru m or PlasmaOrdered By: Estela Varma on 10-26-2022 Folate [Mass/Vol] 4.9 ng/mL >5.9 [facility] Comment on above: Folate reference ran ge: >5.9 ng/mlThe WHO technical consultation on folate and vitamin [id number] has determined that folate concentrations lessthan 4 ng/ml are considered deficient. Glucose [Mass/volume] in Ser um or PlasmaOrdered By: Estela Varma on 10-26-2022 Glucose [Mass/Vol] 66 mg/dL Low 70-100 [facility] Comment on above: ADA recommended refe rence rangeRandom Glucose Reference Range is dependent on time and content of last meal. Glucose of more than 200 mg/dL in a nonstressed, ambulatory subject supports the diagnosis of Diabetes Mellitus. Result Comment: [place] Glucose Reference Range is dependent on time and content of last meal. Glucose of more than 200 mg/dL in a nonstressed, ambulatory subject supports the diagnosis of Diabetes Mellitus. ADA recommended reference range Performed By: #### C BC, ESR, CMP, FE and TIBC, YUSUF, [id number], CEA ####[facility] [id number] [place] [address] [place]#### EPO ####[facility] , Hematocrit [Volume Fraction] of Blood by Automated countOrdered By: Estela Varma on 10-26-2022 Hematocrit (Bld) [Volume fraction] 39.7 % Normal 38.8-50.0 [facility] Comment on above: Performed By: #### F E and TIBC, T4F, CMP, B12, FOL, CBC, CEA, MARILU, LIPASE #### [place] [address] [place] #### METH #### [facility] , Hemoglobin [Mass/volume] in BloodOrdered By: Estela Varma on 10-26-2022 Hemoglobin (Bld) [Mass/Vol] 13.6 g/dL Normal 13.0-17.0 [facility] Comment on above: Performed By: #### F E and TIBC, T4F, CMP, B12, FOL, CBC, CEA, MARILU, LIPASE #### [place] [address] [place] #### METH #### [facility] , Iron [Mass/volume] in Serum or PlasmaOrdered By: Estela Varma on 10-26-2022 Iron [Mass/Vol] 103 ug/dL Normal 50-212 [facility] Comment on above: Performed By: #### F E and TIBC, T4F, CMP, B12, FOL, CBC, CEA, MARILU, LIPASE #### [place] [address] [place] #### METH #### [facility] , Iron and TIBC Profileon 10-12 % Iron Saturation 38.3 % Normal 20-50 [facility] Comment on above: Performed By: #### F E and TIBC, T4F, CMP, B12, FOL, CBC, CEA, MARILU, LIPASE #### [place] [address] [place] #### METH #### [facility] , Total Iron Binding Capacity 269 ug/dL Normal 255-450 [facility] Comment on above: Performed By: #### F E and TIBC, T4F, CMP, B12, FOL, CBC, CEA, MARILU, LIPASE #### [place] [address] [place] #### METH #### [facility] , Iron binding capacity [Mass/ volume] in Serum or PlasmaOrdered By: Estela Varma on 10-26-2022 Iron binding capacity [Mass/Vol] 269 ug/dL 255-450 [facility] Iron saturation [Mass Fracti on] in Serum or PlasmaOrdered By: Estela Varma on 10-26-2022 Iron saturation [Mass fraction] 38.3 % 20-50 [facility] Leukocytes [#/volume] correc chris for nucleated erythrocytes in Blood by Automated counOrdered By: Estela Varma on 10-26-2022 WBC corrected for nucl RBC Auto (Bld) [#/Vol] 5.8 10*3/uL 4.1-10.5 [facility] Leukocytes [#/volume] in Blo od by Automated countOrdered By: Estela Varma on 10-26-2022 WBC (Bld) [#/Vol] 5.8 10*3/uL Normal 4.1-10.5 [facility] Comment on above: Performed By: #### F E and TIBC, T4F, CMP, B12, FOL, CBC, CEA, MARILU, LIPASE #### [address] #### METH #### [facility] , Lymphocytes [#/volume] in Bl ood by Automated countOrdered By: Estela Varma on 10-26-2022 Lymphocytes (Bld) [#/Vol] 0.9 10*3/uL Low 1.00-4.8 [facility] Comment on above: Performed By: #### F E and TIBC, T4F, CMP, B12, FOL, CBC, CEA, MARILU, LIPASE #### [place] [address] [place] #### METH #### [facility] , Lymphocytes/100 leukocytes i n Blood by Automated countOrdered By: Estela Varma on 10-26-2022 Lymphocytes/100 WBC (Bld) 15.0 % Normal . [facility] Comment on above: Performed By: #### F E and TIBC, T4F, CMP, B12, FOL, CBC, CEA, MARILU, LIPASE #### [place] [address] [place] #### METH #### [facility] , MCH [Entitic mass] by Automa chris countOrdered By: Estela Varma on 10-26-2022 MCH (RBC) [Entitic mass] 32.6 pg Normal 27.5-35.2 [facility] Comment on above: Performed By: #### F E and TIBC, T4F, CMP, B12, FOL, CBC, CEA, MARILU, LIPASE #### [address] #### METH #### [facility] , MCHC Auto (RBC) [Mass/Vol]Or dered By: Estela Varma on 10-26-2022 MCHC (RBC) [Mass/Vol] 34.2 g/dL 32.5-35.6 [facility] MCV [Entitic volume] by Auto mated countOrdered By: Estela Varma on 10-26-2022 MCV (RBC) [Entitic vol] 95.2 fL Normal 83.5-101 [facility] Comment on above: Performed By: #### F E and TIBC, T4F, CMP, B12, FOL, CBC, CEA, MARILU, LIPASE #### [place] [address] [place] #### METH #### [facility] , Neutrophils [#/volume] in Bl ood by Automated countOrdered By: Estela Varma on 10-26-2022 Neutrophils (Bld) [#/Vol] 4.1 10*3/uL Normal 1.8-7.7 [facility] Comment on above: Performed By: #### F E and TIBC, T4F, CMP, B12, FOL, CBC, CEA, MARILU, LIPASE #### [facility] [address] [place] [address] [place] #### METH #### [facility] , No Panel InformationOrdered By: Estela Varma on 10-26-2022 Estimated GFR (CKD-EPI) > 60.0 mL/Min [facility] Creatinine Clearance (Chem 121.12 [facility] Nucleated erythrocytes [Pres ence] in Blood by Automated countOrdered By: Estela Varma on 10-26-2022 Nucleated RBC Auto Ql (Bld) 0.2 /100{WBC} 0-0.5 [facility] Platelet mean volume [Entiti c volume] in Blood by Automated countOrdered By: Estela Varma on 10-26-2022 Platelet mean volume (Bld) [Entitic vol] 6.7 fL Normal 6.6-10.1 [facility] Comment on above: Performed By: #### F E and TIBC, T4F, CMP, B12, FOL, CBC, CEA, MARILU, LIPASE #### [address] #### METH #### [facility] , Platelets [#/volume] in Bloo d by Automated countOrdered By: Estela Varma on 10-26-2022 Platelets (Bld) [#/Vol] 227 10*3/uL Normal 150-450 [facility] Comment on above: Performed By: #### F E and TIBC, T4F, CMP, B12, FOL, CBC, CEA, MARILU, LIPASE #### [facility] [address] [place] [address] [place] #### METH #### [facility] , Potassium [Moles/volume] in Serum or PlasmaOrdered By: Estela Varma on 10-26-2022 Potassium [Moles/Vol] 4.1 mmol/L Normal 3.5-5.1 [facility] Comment on above: Performed By: #### C BC, ESR, CMP, FE and TIBC, YUSUF, [id number], CEA ####[place] [address]#### EPO ####[facility] , Protein [Mass/volume] in Ser um or PlasmaOrdered By: Estela Varma on 10-26-2022 Protein [Mass/Vol] 6.7 g/dL Normal 6.4-8.9 [facility] Comment on above: Performed By: #### C BC, ESR, CMP, FE and TIBC, YUSUF, [id number], CEA ####[address]#### EPO ####[facility] , Serum globulin measurement b y calculation (mass/volume)Ordered By: Estela Varma on 10-26-2022 Globulin (S) [Mass/Vol] 2.8 g/dL [facility] Comment on above: Performed By: #### C BC, ESR, CMP, FE and TIBC, YUSUF, [id number], CEA ####[address]#### EPO ####[facility] , Serum or plasma albumin/glob ulin mass ratioOrdered By: Estela Varma on 10-26-2022 Albumin/Globulin [Mass ratio] 1.4 {ratio} [facility] Comment on above: Performed By: #### C BC, ESR, CMP, FE and TIBC, YUSUF, [id number], CEA ####[place] [address] [place]#### EPO ####[facility] , Serum or plasma anion gap de terminationOrdered By: Estela Varma on 10-26-2022 Anion gap [Moles/Vol] 11.6 mmol/L Normal 6.0-15.0 [facility] [facility] Comment on above: Performed By: #### C BC, ESR, CMP, FE and TIBC, YUSUF, [id number], CEA ####[address] [place] [address] [place]#### EPO ####[facility] , Serum or plasma carcinoembry onic antigen measurement (mass/volume)Ordered By: Estela Varma on 10-26-2022 Carcinoembryonic Ag [Mass/Vol] 8.0 ng/mL 0.0-3.0 [facility] Serum or plasma erythropoiet in (EPO) measurement (units/volume)Ordered By: Estela Varma on 10-26-2022 Erythropoietin (EPO) Qn 15.7 mIU/mL 2.6-18.5 [facility] Comment on above: [employer] el DxI 800 Immunoassay SystemValues obtained with different assay methods or kits cannotbe used interchangeably. Results cannot be interpreted asabsolute evidence of the presence or absence of malignantdisease.Performed at: [facility] [address] Director: Fernando Brand PhD, Phone: [phone] Sodium [Moles/volume] in Ser um or PlasmaOrdered By: Estela Varma on 10-26-2022 Sodium [Moles/Vol] 129 mmol/L Low 136-145 [facility] Comment on above: Performed By: #### C BC, ESR, CMP, FE and TIBC, YUSUF, [id number], CEA ####[facility]#### EPO ####[facility] , Transferrin [Mass/volume] in Serum or PlasmaOrdered By: Estela Varma on 10-26-2022 Transferrin [Mass/Vol] 192 mg/dL Low 203-362 [facility] Comment on above: Performed By: #### F E and TIBC, T4F, CMP, B12, FOL, CBC, CEA, MARILU, LIPASE #### [facility] [address] [place] [address] [place] #### METH #### [facility] , Urea nitrogen [Mass/volume] in Serum or PlasmaOrdered By: Estela Varma on 10-26-2022 Urea nitrogen [Mass/Vol] 8 mg/dL Normal 7-25 [facility] Comment on above: Performed By: #### C BC, ESR, CMP, FE and TIBC, YUSUF, [id number], CEA ####[facility]#### EPO ####[facility] , Vit. B12/Folate Profileon Folate 4.9 ng/mL Low >5.9 [facility] Comment on above: Result Comment: Estrella te reference range: >5.9 ng/ml The WHO technical consultation on folate and vitamin b12 deficiencies has determined that folate concentrations less than 4 ng/ml are considered deficient. PERFORMED BY: [place] [address] PATHOLOGIST [employer]ER CATY DELCID M.D. Performed By: #### F E and TIBC, T4F, CMP, B12, FOL, CBC, CEA, MARILU, LIPASE #### [address] #### METH #### [facility] , Vitamin B12 ser/plasOrdered By: Estela Varma on 10-26-2022 Cobalamin (Vitamin B12) [Mass/Vol] 252 pg/mL Normal 180-914 [facility] Comment on above: Performed By: #### F E and TIBC, T4F, CMP, B12, FOL, CBC, CEA, MARILU, LIPASE #### [address] #### METH #### [facility] , XR chest 2V*on 10-26-2022 XR chest 2V* [facility] [place] [address] [place] [address] XRay Report Signed Patient: Kirill Echols MR#: [id number] : 1965 Acct:[id number] Age/Sex: 57 / M ADM Date: 10/26/22 Loc: ER Room: Type: [facility] ER Attending Dr: Copies to: Humberto Molina PA-C Ordering Provider: Humberto Molina PA-C Date of Service: 10/26/22 XR/XR chest 2V*: Recheck/Abnormal Lab/Rx PA AND LATERAL CHEST: CLINICAL HISTORY: Shortness of breath and chest tightness. Follow-up right Pleurx catheter after a suture fell out. COMPARISON: 10/18/2022 There is a left-sided Hcwqsv-v-Bszv catheter. The right basilar Pleurx catheter is [...] Ashley Velasquez M.D.10/26/2022 1:32 PM Dictation Location: [place] [address] Transcribed By: [facility] 10/26/22 1332 Dictated By: Ashley Velasquez MD 10/26/22 1329 Signed By: 10/26/22 1332 Normal [facility] XR chest 2V*on 10-18-2022 XR chest 2V* [facility] [place] [address] XRay Report Signed Patient: Kirill Echols MR#: [id number] : 1965 Acct:[id number] Age/Sex: 57 / M ADM Date: 10/18/22 Loc: XD Room: Type: [facility] Attending Dr: Nilsa Isidro [employer]PER[employer] Copies to: Nilsa Isidro CNP Ordering Provider: Nilsa Isidro CNP Date of Service: 10/18/22 XR/XR chest 2V*: RO6.09 PA AND LATERAL CHEST: CLINICAL HISTORY: Shortness of breath and chest pain. COMPARISON: 06/17/2022 There is a left Eekdcr-i-Ztfs catheter. A right basilar chest tube is [...] Ashley Velasquez M.D.10/18/2022 5:27 PM Dictation Location: [place] [address] Transcribed By: [facility] 10/18/221726 Dictated By: Ashley Velasquez MD 10/18/221706 Signed By: 10/18/221726 Normal [facility] CYTOLOGYon 10-03-2022 SENT TO REF LAB 10/04/2022 Normal [facility] Comment on above: Performed By: #### C YTO #### [facility] [address] [place] [address] Dr. Sushant Pradhan CULTURE STERILE BODY FLUIDon 09-11-2022 CULTURE STERILE BODY FLUID Culture Observations: NO GROWTH AT 72 HRS Normal [facility] Comment on above: Performed By: #### C MREP #### [facility] [address] [place] [address] Dr. Sushant Pradhan CULTURE STERILE BODY FLUIDon 09-08-2022 CULTURE STERILE BODY FLUID Culture Observations: NO GROWTH AT 72 HOURS. [facility] Comment on above: Performed By: #### C MREP #### [facility] [address] [place] [address] Dr. Sushant Pradhan CULTURE STERILE BODY FLUIDon 09-04-2022 CULTURE STERILE BODY FLUID Culture Observations: NO GROWTH AT 72 HOURS. [facility] Comment on above: Performed By: #### C MREP #### [facility] [address] [place] [address] Dr. Sushant Pradhan XR RIBS LT PA [...] recent CT study. Electronically authenticated by: JESSE RAMSO Date: 2022-09-01 11:46 Normal [facility] CBC AUTO DIFFon 08-27-2022 BASO # 0.0 103/ul Normal 0.0-0.1 [facility] Comment on above: Performed By: #### C BC #### [facility] [address] [place] [address] [address] Sushant Pradhan Basophils/100 WBC (Bld) 0.3 % Normal 0.2-2.0 [facility] Comment on above: Performed By: #### C BC #### [facility] [address] [place] [address] [address] Sushant Pradhan EO # 0.2 103/ul Normal 0.0-0.7 [facility] Comment on above: Performed By: #### C BC #### [facility] [address] [place] [address] [address] Sushant Pradhan Eosinophils/100 WBC (Bld) 3.0 % Normal 0.9-7.0 [facility] Comment on above: Performed By: #### C BC #### [facility] [address] [place] [address] [address] Sushant Pradhan Erythrocyte distribution width (RBC) [Ratio] 16.5 % Critically high 11.0-15.0 [facility] Comment on above: Performed By: #### C BC #### [facility] [address] [place] [address] [address] Sushant Pradhan Hematocrit (Bld) [Volume fraction] 38.4 % Critically low 42.0-54.0 [facility] Comment on above: Performed By: #### C BC #### [facility] [address] [place] [address] [address] Sushant Pradhan Hemoglobin (Bld) [Mass/Vol] 13.9 g/dL Critically low 14.0-18.0 [facility] Comment on above: Performed By: #### C BC #### [facility] [address] [place] [address] [address] Sushant Pradhan IG # 0.01 10e3/ul Normal 0.00-0.03 [facility] Comment on above: Performed By: #### C BC #### [facility] [address] [place] [address] Dr. Sushant Pradhan IG % 0.2 % Normal 0.0-0.5 [facility] Comment on above: Performed By: #### C BC #### [facility] [address] [place] [address] Dr. Sushant Pradhan LYMPH # 1.0 103/ul Critically low 1.2-3.8 [facility] [place] Comment on above: Performed By: #### C BC #### [facility] [address] [place] [address] Dr. Sushant Pradhan Lymphocytes/100 WBC (Bld) 15.8 % Critically low 20.5-60.0 [facility] Comment on above: Performed By: #### C BC #### [facility] [address] [place] [address] Dr. Sushant Pradhan MANUAL DIFF REQ NO Normal [facility] Comment on above: Performed By: #### C BC #### [facility] [address] [place] [address] Dr. Sushant Pradhan MCH (RBC) [Entitic mass] 32.8 pg Normal 25.9-34.0 [facility] Comment on above: Performed By: #### C BC #### [facility] [address] [place] [address] Dr. Sushant Pradhan MCHC (RBC) [Mass/Vol] 36.2 g/dL Critically high 29.9-35.2 [facility] Comment on above: Performed By: #### C BC #### [facility] [address] [place] [address] Dr. Sushant Pradhan MCV (RBC) [Entitic vol] 90.6 fL Normal 80.0-94.0 [facility] Comment on above: Performed By: #### C BC #### [facility] [address] [place] [address] Dr. Sushant Pradhan MONO # 0.8 103/ul Normal 0.3-0.8 [facility] Comment on above: Performed By: #### C BC #### [facility] [address] [place] [address] Dr. Sushant Pradhan Monocytes/100 WBC (Bld) 12.6 % Critically high 1.7-12.0 [facility] Comment on above: Performed By: #### C BC #### [facility] [address] [place] [address] Dr. Sushant Pradhan NEUT # 4.3 103/ul Normal 1.4-6.5 [facility] Comment on above: Performed By: #### C BC #### [facility] [address] [place] [address] Dr. Sushant Pradhan Neutrophils/100 WBC (Bld) 68.1 % Normal 43.0-75.0 [facility] Comment on above: Performed By: #### C BC #### [facility] [address] [place] [address] Dr. Sushant Pradhan Platelet mean volume (Bld) [Entitic vol] 9.0 fL Critically low 9.5-13.5 [facility] Comment on above: Performed By: #### C BC #### [facility] [address] [place] [address] Dr. Sushant Pradhan PLT 192 103/ul Normal 150-450 [facility] Comment on above: Performed By: #### C BC #### [facility] [address] [place] [address] Dr. Suhsant Pradhan RBC 4.24 106/ul Critically low 4.70-6.10 [facility] Comment on above: Performed By: #### C BC #### [facility] [address] [place], [place] [address] Dr. Sushant Prdahan WBC 6.3 103/ul Normal 4.0-11.0 [facility] Comment on above: Performed By: #### C BC #### [facility] [address] [place], [place] [address] CHEST W CONon [...] by: MARCE SHAY Date: 2022-08-27 12:02 Normal [facility] LACTATE/LACTIC ACIDon 2022 Lactate [Moles/Vol] 1.8 mmol/L Normal 0.4-2.0 [facility] Comment on above: Performed By: #### C MREP #### [facility] [address] [place] [address] Dr. Sushant Pradhan PROF 14(COMP METB)on 023 Albumin [Mass/Vol] 3.2 g/dL Critically low 3.4-5.0 [facility] Comment on above: Performed By: #### C BC #### [facility] [address] [place] [address] Dr. Sushant Pradhan Albumin/Globulin [Mass ratio] 0.7 {ratio} Normal [facility] Comment on above: Performed By: #### C BC #### [facility] [address] [place] [address] Dr. Sushant Pardhan ALP [Catalytic activity/Vol] 207 U/L Critically high 46-116 [facility] Comment on above: Performed By: #### C BC #### [facility] [address] [place] [address] Dr. Sushant Pradhan ALT [Catalytic activity/Vol] 22 U/L Normal 16-63 [facility] Comment on above: Performed By: #### C BC #### [facility] [address] [place] [address] [address] Sushant Pradhan Anion gap [Moles/Vol] 11.9 mmol/L Normal [facility] Comment on above: Performed By: #### C BC #### [facility] [address] [place] [address] Dr. Sushant Pradhan AST [Catalytic activity/Vol] 23 U/L Normal 15-37 [facility] Comment on above: Performed By: #### C BC #### [facility] [address] [place] [address] [address] Sushant Pradhan Bilirubin [Mass/Vol] 0.4 mg/dL Normal 0.2-1.0 [facility] Comment on above: Performed By: #### C BC #### [facility] [address] [place] [address] Dr. Sushant Pradhan Calcium [Mass/Vol] 9.2 mg/dL Normal 8.5-10.1 [facility] Comment on above: Performed By: #### C BC #### [facility] [address] [place] [address] Dr. Sushant Pradhan Chloride [Moles/Vol] 97 mmol/L Critically low 98-107 [facility] Comment on above: Performed By: #### C BC #### [facility] [address] [place] [address] Dr. Suhsant Pradhan CO2 [Moles/Vol] 28.1 mmol/L Normal 21.0-32.0 [facility] Comment on above: Performed By: #### C BC #### [facility] [address] [place] [address] Dr. Sushant Pradhan Creatinine [Mass/Vol] 0.86 mg/dL Normal 0.70-1.30 [facility] Comment on above: Performed By: #### C BC #### [facility] [address] [place] [address] Dr. Sushant Pradhan EGFR-AF ITALIAN >60 Normal >=60 [facility] Comment on above: Performed By: #### C BC #### [facility] [address] [place] [address] Dr. Sushant Pradhan EGFR-NON AF ITALIAN >60 Normal >=60 [facility] Comment on above: Performed By: #### C BC #### [facility] [address] [place] [address] Dr. Sushant Pradhan Globulin (S) [Mass/Vol] 4.8 g/dL Normal [facility] Comment on above: Performed By: #### C BC #### [facility] [address] [place] [address] [address] Sushant Pradhan Glucose [Mass/Vol] 104 mg/dL Normal 74-106 [facility] Comment on above: Performed By: #### C BC #### [facility] [address] [place] [address] [address] Sushant Pradhan Potassium [Moles/Vol] 4.0 mmol/L Normal 3.5-5.1 [facility] Comment on above: Performed By: #### C BC #### [facility] [address] [place] [address] Dr. Sushant Pradhan Protein [Mass/Vol] 8.0 g/dL Normal 6.4-8.2 [facility] Comment on above: Performed By: #### C BC #### [facility] [address] [place] [address] Dr. Sushant Pradhan Sodium [Moles/Vol] 133 mmol/L Critically low 136-145 [facility] Comment on above: Performed By: #### C BC #### [facility] [address] [place] [address] Dr. Sushant Pradhan Urea nitrogen [Mass/Vol] 6.0 mg/dL Critically low 7.0-18.0 [facility] Comment on above: Performed By: #### C BC #### [facility] [address] [place] [address] [address] Sushant Pradhan Urea nitrogen/Creatinine [Mass ratio] 7.0 mg/mg Normal [facility] Comment on above: Performed By: #### C BC #### [facility] [address] [place] [address] Dr. Sushant Pradhan TROPONIN, HIGH SENSITIVITYon 08-27-2022 HSTROP 5.6 pg/mL Normal 4.0-76.1 [facility] Comment on above: Result Comment: CUT- OFF POINTS HAVE BEEN ESTABLISHED BASED ON THE FOURTH UNIVERSAL DEFINITIONS OF MYOCARDIAL INFARCTION. THE UPPER REFERENCE LIMIT (URL) OF TROPONIN, DEFINED THE 99TH PERCENTILE OF cTnI DISTRIBUTION IN A REFERENCE POPULATION, HAS BEEN CONFIRMED THE DECISION THRESHOLD FOR SC DIAGNOSIS. Performed By: #### C BC #### [facility] [address] [place] [address] Dr. Sushant Pradhan HSTROP 5.8 pg/mL Normal 4.0-76.1 [facility] Comment on above: Result Comment: CUT- OFF POINTS HAVE BEEN ESTABLISHED BASED ON THE FOURTH UNIVERSAL DEFINITIONS OF MYOCARDIAL INFARCTION. THE UPPER REFERENCE LIMIT (URL) OF TROPONIN, DEFINED THE 99TH PERCENTILE OF cTnI DISTRIBUTION IN A REFERENCE POPULATION, HAS BEEN CONFIRMED THE DECISION THRESHOLD FOR SC DIAGNOSIS. Performed By: #### C BC #### [facility] [address] [place] [address] Dr. Sushant Pradhan CARDIAC SONIA ADMITon 023 CK [Catalytic activity/Vol] 68 U/L Normal 39-308 [facility] Comment on above: Performed By: #### C MREP #### [facility] [address] [place] [address] Dr. Sushant Pradhan CK.MB [Mass/Vol] 1.23 ng/mL Normal <=3.60 [facility] Comment on above: Performed By: #### C MREP #### [facility] [address] [place] [address] Dr. Sushant Pradhan HSTROP 7.1 pg/mL Normal 4.0-76.1 [facility] Comment on above: Result Comment: CUT- OFF POINTS HAVE BEEN ESTABLISHED BASED ON THE FOURTH UNIVERSAL DEFINITIONS OF MYOCARDIAL INFARCTION. THE UPPER REFERENCE LIMIT (URL) OF TROPONIN, DEFINED THE 99TH PERCENTILE OF cTnI DISTRIBUTION IN A REFERENCE POPULATION, HAS BEEN CONFIRMED THE DECISION THRESHOLD FOR SC DIAGNOSIS. Performed By: #### C MREP #### [facility] [address] [place] [address] Dr. Sushant Pradhan DILAN 32 ng/mL Normal 16-96 [facility] Comment on above: Performed By: #### C MREP #### [facility] [address] [place] [address] [address] Sushant Pradhan CBC AUTO DIFFon 06-18-2022 BASO # 0.0 103/ul Normal 0.0-0.1 [facility] Comment on above: Performed By: #### C BC #### [facility] [address] [place] [address] Dr. Sushant Pradhan Basophils/100 WBC (Bld) 0.5 % Normal 0.2-2.0 [facility] Comment on above: Performed By: #### C BC #### [facility] [address] [place] [address] Dr. Sushant Pradhan EO # 0.3 103/ul Normal 0.0-0.7 [facility] Comment on above: Performed By: #### C BC #### [facility] [address] [place] [address] Dr. Sushant Pradhan Eosinophils/100 WBC (Bld) 4.5 % Normal 0.9-7.0 [facility] Comment on above: Performed By: #### C BC #### [facility] [address] [place] [address] Dr. Sushant Pradhan Erythrocyte distribution width (RBC) [Ratio] 15.8 % Critically high 11.0-15.0 [facility] Comment on above: Performed By: #### C BC #### [facility] [address] [place] [address] Dr. Sushant Pradhan Hematocrit (Bld) [Volume fraction] 37.3 % Critically low 42.0-54.0 [facility] Comment on above: Performed By: #### C BC #### [facility] [address] [place] [address] Dr. Sushant Pradhan Hemoglobin (Bld) [Mass/Vol] 13.0 g/dL Critically low 14.0-18.0 [facility] Comment on above: Performed By: #### C BC #### [facility] [address] [place] [address] Dr. Sushant Pradhan IG # 0.02 10e3/ul Normal 0.00-0.03 [facility] Comment on above: Performed By: #### C BC #### [facility] [address] [place] [address] [address] Sushant Pradhan IG % 0.3 % Normal 0.0-0.5 [facility] Comment on above: Performed By: #### C BC #### [facility] [address] [place] [address] Dr. Sushant Pradhan LYMPH # 0.8 103/ul Critically low 1.2-3.8 [facility] [place] Comment on above: Performed By: #### C BC #### [facility] [address] [place] [address] Dr. Sushant Pradhan Lymphocytes/100 WBC (Bld) 13.9 % Critically low 20.5-60.0 [facility] Comment on above: Performed By: #### C BC #### [facility] [address] [place] [address] Dr. Sushant Pradhan MANUAL DIFF REQ NO Normal [facility] Comment on above: Performed By: #### C BC #### [facility] [address] [place] [address] Dr. Sushant Pradhan MCH (RBC) [Entitic mass] 33.0 pg Normal 25.9-34.0 [facility] Comment on above: Performed By: #### C BC #### [facility] [address] [place] [address] Dr. Sushant Pradhan MCHC (RBC) [Mass/Vol] 34.9 g/dL Normal 29.9-35.2 [facility] Comment on above: Performed By: #### C BC #### [facility] [address] [place] [address] Dr. Sushant Pradhan MCV (RBC) [Entitic vol] 94.7 fL Critically high 80.0-94.0 [facility] Comment on above: Performed By: #### C BC #### [facility] [address] [place] [address] Dr. Sushant Pradhan MONO # 0.7 103/ul Normal 0.3-0.8 [facility] Comment on above: Performed By: #### C BC #### [facility] [address] [place] [address] [address] Sushant Pradhan Monocytes/100 WBC (Bld) 12.5 % Critically high 1.7-12.0 [facility] Comment on above: Performed By: #### C BC #### [facility] [address] [place] [address] [address] Sushant Pradhan NEUT # 4.0 103/ul Normal 1.4-6.5 [facility] Comment on above: Performed By: #### C BC #### [facility] [address] [place] [address] [address] Sushant Pradhan Neutrophils/100 WBC (Bld) 68.3 % Normal 43.0-75.0 [facility] Comment on above: Performed By: #### C BC #### [facility] [address] [place] [address] Dr. Sushant Pradhan Platelet mean volume (Bld) [Entitic vol] 9.1 fL Critically low 9.5-13.5 [facility] Comment on above: Performed By: #### C BC #### [facility] [address] [place] [address] Dr. Sushant Pradhan PLT 175 103/ul Normal 150-450 [facility] Comment on above: Performed By: #### C BC #### [facility] [address] [place] [address] Dr. Sushant Pradhan RBC 3.94 106/ul Critically low 4.70-6.10 [facility] Comment on above: Performed By: #### C BC #### [facility] [address] [place] [address] Dr. Sushant Pradhan WBC 5.8 103/ul Normal 4.0-11.0 [facility] Comment on above: Performed By: #### C BC #### [facility] [address] [place] [address] Dr. Sushant Pradhan PROF 14(COMP METB)on 023 Albumin [Mass/Vol] 2.9 g/dL Critically low 3.4-5.0 [facility] Comment on above: Performed By: #### C MREP #### [facility] [address] [place] [address] [address] Sushant Pradhan Albumin/Globulin [Mass ratio] 0.8 {ratio} Normal [facility] Comment on above: Performed By: #### C MREP #### [facility] [address] [place] [address] [address] Sushant Pradhan ALP [Catalytic activity/Vol] 133 U/L Critically high 46-116 [facility] Comment on above: Performed By: #### C MREP #### [facility] [address] [place] [address] [address] Sushant Pradhan ALT [Catalytic activity/Vol] 15 U/L Critically low 16-63 [facility] Comment on above: Performed By: #### C MREP #### [facility] [address] [place] [address] Dr. Sushant Pradhan Anion gap [Moles/Vol] 16.5 mmol/L Normal [facility] Comment on above: Performed By: #### C MREP #### [facility] [address] [place] [address] Dr. Sushant Pradhan AST [Catalytic activity/Vol] 15 U/L Normal 15-37 [facility] Comment on above: Performed By: #### C MREP #### [facility] [address] [place] [address] Dr. Sushant Pradhan Bilirubin [Mass/Vol] 0.4 mg/dL Normal 0.2-1.0 [facility] Comment on above: Performed By: #### C MREP #### [facility] [address] [place] [address] [address] Sushant Pradhan Calcium [Mass/Vol] 8.6 mg/dL Normal 8.5-10.1 [facility] Comment on above: Performed By: #### C MREP #### [facility] [address] [place] [address] [address] Sushant Pradhan Chloride [Moles/Vol] 97 mmol/L Critically low 98-107 [facility] Comment on above: Performed By: #### C MREP #### [facility] [address] [place] [address] [address] Sushant Pradhan CO2 [Moles/Vol] 22.3 mmol/L Normal 21.0-32.0 [facility] Comment on above: Performed By: #### C MREP #### [facility] [address] [address] [address] Sushant Pradhan Creatinine [Mass/Vol] 0.61 mg/dL Critically low 0.70-1.30 [facility] Comment on above: Performed By: #### C MREP #### [facility] [address] [place] [address] Dr. Sushant Pradhan EGFR-AF ITALIAN >60 Normal >=60 [facility] [facility] Comment on above: Performed By: #### C MREP #### [facility] [address] [place] [address] Dr. Sushant Pradhan EGFR-NON AF ITALIAN >60 Normal >=60 [facility] Comment on above: Performed By: #### C MREP #### [facility] [address] [place] [address] Dr. Sushant Pradhan Globulin (S) [Mass/Vol] 3.8 g/dL Normal [facility] Comment on above: Performed By: #### C MREP #### [facility] [address] [place] [address] Dr. Sushant Pradhan Glucose [Mass/Vol] 79 mg/dL Normal 74-106 [facility] Comment on above: Performed By: #### C MREP #### [facility] [address] [place] [address] Dr. Sushant Pradhan Potassium [Moles/Vol] 3.8 mmol/L Normal 3.5-5.1 [facility] Comment on above: Performed By: #### C MREP #### [facility] [address] [place] [address] Dr. Sushant Pradhan Protein [Mass/Vol] 6.7 g/dL Normal 6.4-8.2 [facility] Comment on above: Performed By: #### C MREP #### [facility] [address] [place] [address] Dr. Sushant Pradhan Sodium [Moles/Vol] 132 mmol/L Critically low 136-145 [facility] Comment on above: Performed By: #### C MREP #### [facility] [address] [address] [address] Sushant Pradhan Urea nitrogen [Mass/Vol] 5.0 mg/dL Critically low 7.0-18.0 [facility] Comment on above: Performed By: #### C MREP #### [facility] [address] [address] [address] Sushant Pradhan Urea nitrogen/Creatinine [Mass ratio] 8.2 mg/mg Normal [facility] Comment on above: Performed By: #### C MREP #### [facility] [address] [address] [address] Sushant Pradhan XR CHEST 1 Von [...] JESSE RAMOS Date: 2022-06-18 10:42 Normal [facility] Basophils Auto (Bld) [#/Vol] Ordered By: Jackie Fraga on 06-17-2022 Basophils (Bld) [#/Vol] 0.0 10*3/uL 0.0-0.2 [facility] Basophils/100 WBC Auto (Bld) Ordered By: Jackie Fraga on 02-04-2023 Basophils/100 WBC (Bld) 0.7 % . [facility] Creatinine and Glomerular fi ltration rate.predicted panel (S/P/Bld)Ordered By: Jackie Fraga on 06-17-2022 Creatinine [Mass/Vol] 0.91 mg/dL 0.64-1.27 [facility] Eosinophils Auto (Bld) [#/Vo l]Ordered By: Jackie Fraga on 06-17-2022 Eosinophils (Bld) [#/Vol] 0.2 10*3/uL 0.0-0.45 [facility] Eosinophils/100 WBC Auto (Bl d)Ordered By: Jackie Fraga on 06-17-2022 Eosinophils/100 WBC (Bld) 3.5 % . [facility] Erythrocyte distribution wid th Auto (RBC) [Ratio]Ordered By: Jackie Fraga on 06-17-2022 Erythrocyte distribution width (RBC) [Ratio] 15.8 % 12.0-14.8 [facility] Estimated glomerular filtrat ion rate (GFR) non- AmericanOrdered By: Jackie Fraga on 06-17-2022 GFR/1.73 sq M.predicted among non-blacks MDRD (S/P/Bld) [Vol rate/Area] > 60 mL/Min [facility] Hematocrit Auto (Bld) [Volum e fraction]Ordered By: Jackie Fraga on 06-17-2022 Hematocrit (Bld) [Volume fraction] 41.9 % 38.8-50.0 [facility] Hemoglobin [Mass/volume] in BloodOrdered By: Jackie Fraga on 06-17-2022 Hemoglobin (Bld) [Mass/Vol] 13.8 g/dL 13.0-17.0 [facility] Leukocytes [#/volume] correc chris for nucleated erythrocytes in Blood by Automated counOrdered By: Jackie Fraga on 06-17-2022 WBC corrected for nucl RBC Auto (Bld) [#/Vol] 6.1 10*3/uL 4.1-10.5 [facility] Lymphocytes Auto (Bld) [#/Vo l]Ordered By: Jackie Fraga on 06-17-2022 Lymphocytes (Bld) [#/Vol] 1.0 10*3/uL 1.00-4.8 [facility] Lymphocytes/100 WBC Auto (Bl d)Ordered By: Jackie Fraga on 06-17-2022 Lymphocytes/100 WBC (Bld) 16.6 % . [facility] MCH Auto (RBC) [Entitic mass ]Ordered By: Jackie Fraga on 06-17-2022 MCH (RBC) [Entitic mass] 32.9 pg 27.5-35.2 [facility] MCHC Auto (RBC) [Mass/Vol]Or dered By: Jackie Fraga on 06-17-2022 MCHC (RBC) [Mass/Vol] 33.1 g/dL 32.5-35.6 [facility] MCV Auto (RBC) [Entitic vol] Ordered By: Jackie Fraga on 06-17-2022 MCV (RBC) [Entitic vol] 99.4 fL 83.5-101 [facility] Monocytes Auto (Bld) [#/Vol] Ordered By: Jackie Fraga on 06-17-2022 Monocytes (Bld) [#/Vol] 0.8 10*3/uL 0.0-0.8 [facility] Monocytes/100 WBC Auto (Bld) Ordered By: Jackie Fraga on 06-17-2022 Monocytes/100 WBC (Bld) 13.3 % . [facility] Neutrophils Auto (Bld) [#/Vo l]Ordered By: Jackie Fraga on 06-17-2022 Neutrophils (Bld) [#/Vol] 4.0 10*3/uL 1.8-7.7 [facility] Neutrophils/100 WBC Auto (Bl d)Ordered By: Jackie Fraga on 06-17-2022 Neutrophils/100 WBC (Bld) 65.9 % . [facility] No Panel InformationOrdered By: Jackie Fraga on 06-17-2022 Estimated GFR () > 60 mL/Min [facility] Comment on above: GFR estimated refere nce range: According to KDOQI guidelines, <60 ml/min/1.73m2 is sufficient to diagnose a patient with chronic kidney disease. Pharmacy Creatinine Clearance (Chem 86.01 [facility] Nucleated erythrocytes [Pres ence] in Blood by Automated countOrdered By: Jackie Fraga on 06-17-2022 Nucleated RBC Auto Ql (Bld) 0.2 /100{WBC} 0-0.5 [facility] Platelet mean volume Auto (B ld) [Entitic vol]Ordered By: Jackie Fraga on 06-17-2022 Platelet mean volume (Bld) [Entitic vol] 7.7 fL 6.6-10.1 [facility] Platelets Auto (Bld) [#/Vol] Ordered By: Jackie Fraga on 06-17-2022 Platelets (Bld) [#/Vol] 185 10*3/uL 150-450 [facility] RBC Auto (Bld) [#/Vol]Ordere d By: Jackie Fraga on 06-17-2022 RBC (Bld) [#/Vol] 4.21 10*6/uL 3.90-5.60 [facility] Serum or plasma anion gap de terminationOrdered By: Jackie Fraga on 06-17-2022 Anion gap [Moles/Vol] 10.6 mmol/L 6.0-15.0 [facility] Serum or plasma calcium ledy urement (mass/volume)Ordered By: Jackie Fraga on 06-17-2022 Calcium [Mass/Vol] 8.6 mg/dL 8.2-10.2 [facility] Serum or plasma chloride carlyn surement (moles/volume)Ordered By: Jackie Fraga on 06-17-2022 Chloride [Moles/Vol] 99 mmol/L 95-114 [facility] Serum or plasma glucose ledy urement (mass/volume)Ordered By: Jackie Fraga on 06-17-2022 Glucose [Mass/Vol] 94 mg/dL 70-100 [facility] Comment on above: ADA recommended refe rence rangeRandom Glucose Reference Range is dependent on time and content of last meal. Glucose of more than 200 mg/dL in a nonstressed, ambulatory subject supports the diagnosis of Diabetes Mellitus. Serum or plasma potassium me asurement (moles/volume)Ordered By: Jackie Fraga on 06-17-2022 Potassium [Moles/Vol] 4.1 mmol/L 3.5-5.1 [facility] Serum or plasma sodium measu rement (moles/volume)Ordered By: Jackie Fraga on 06-17-2022 Sodium [Moles/Vol] 127 mmol/L 136-146 [facility] Serum or plasma total carbon dioxide measurement (moles/volume)Ordered By: Jackie Fraga on 06-17-2022 CO2 [Moles/Vol] 21.5 mmol/L 22.0-30.0 [facility] Serum or plasma urea nitroge n measurement (mass/volume)Ordered By: Jackie Fraga on 06-17-2022 Urea nitrogen [Mass/Vol] 10 mg/dL 9- [facility] TSH DL <= 0.005 mIU/L QnOrde red By: Jackie Fraga on 06-17-2022 TSH Qn 4.63 m[IU]/L 0.45-5.33 [facility] WBC Auto (Bld) [#/Vol]Ordere d By: Jackie Fraga on 06-17-2022 WBC (Bld) [#/Vol] 6.1 10*3/uL 4.1-10.5 [facility] Amphetamine Screen Ql (U)Ord ered By: Edward Hinds on 06-16-2022 Amphetamines Ql (U) Negative Negative [facility] Barbiturates [Presence] in U rineOrdered By: Edward Hinds on 06-16-2022 Barbiturates Ql (U) Negative Negative [facility] Benzodiazepines [Presence] i n UrineOrdered By: Edward Hinds on 06-16-2022 Benzodiazepines Ql (U) Negative Negative [facility] Cannabinoids [Presence] in U rine by Screen methodOrdered By: Edward Hinds on 06-16-2022 Cannabinoids Screen Ql (U) Positive Negative [facility] Comment on above: These are unconfirme d results and should not be used for legal purposes. Drug Cut-Off Concentration: AMPH 1000 ng/mL ZUNILDA 200 ng/mL SHIVANI 200 ng/mL COCM 300 ng/mL OP 300 ng/mL PCP 25 ng/mL THC 20 ng/mL Laboratory - Drug toxicology Ordered By: Edward Hinds on 06-16-2022 Opiates Ql (U) Negative Negative [facility] Phencyclidine Screen Ql (U)O rdered By: Edward Hinds on 06-16-2022 Phencyclidine Ql (U) Negative Negative [facility] Urine cocaine detectionOrder ed By: Edward Hinds on 06-16-2022 Cocaine Ql (U) Negative Negative [facility] Activated partial thrombopla stin time (aPTT) in platelet poor plasma by coagulation aOrdered By: Varghese Duval on 06-15-2022 aPTT Coag (PPP) [Time] 35.2 s 25.1-36.5 [facility] Basophils Auto (Bld) [#/Vol] Ordered By: Varghese Duval on 06-15-2022 Basophils (Bld) [#/Vol] 0.1 10*3/uL 0.0-0.2 [facility] Basophils/100 WBC Auto (Bld) Ordered By: Varghese Duval on 06-15-2022 Basophils/100 WBC (Bld) 1.0 % . [facility] Bilirubin Test strip Ql (U)O rdered By: Varghese Duval on 06-15-2022 Bilirubin Ql (U) Negative Negative [facility] Color Auto (U)Ordered By: Tanya Duval on 06-15-2022 Color (U) Yellow Yellow [facility] Creatinine and Glomerular fi ltration rate.predicted panel (S/P/Bld)Ordered By: Varghese Duval on 06-15-2022 Creatinine [Mass/Vol] 0.76 mg/dL 0.64-1.27 [facility] Eosinophils Auto (Bld) [#/Vo l]Ordered By: Varghese Duval on 06-15-2022 Eosinophils (Bld) [#/Vol] 0.3 10*3/uL 0.0-0.45 [facility] Eosinophils/100 WBC Auto (Bl d)Ordered By: Varghese Duval on 06-15-2022 Eosinophils/100 WBC (Bld) 4.9 % . [facility] Erythrocyte distribution wid th Auto (RBC) [Ratio]Ordered By: Varghese Duval on 06-15-2022 Erythrocyte distribution width (RBC) [Ratio] 15.9 % 12.0-14.8 [facility] Estimated glomerular filtrat ion rate (GFR) non- AmericanOrdered By: Varghese Duval on 06-15-2022 GFR/1.73 sq M.predicted among non-blacks MDRD (S/P/Bld) [Vol rate/Area] > 60 mL/Min [facility] Hematocrit Auto (Bld) [Volum e fraction]Ordered By: Varghese Duval on 06-15-2022 Hematocrit (Bld) [Volume fraction] 42.5 % 38.8-50.0 [facility] Hemoglobin [Mass/volume] in BloodOrdered By: Varghese Duval on 06-15-2022 Hemoglobin (Bld) [Mass/Vol] 14.3 g/dL 13.0-17.0 [facility] Ketones Auto test strip (U) [Mass/Vol]Ordered By: Varghese Duval on 06-15-2022 Ketones (U) [Mass/Vol] Negative Negative [facility] Laboratory - CoagulationOrde red By: Varghese Duval on 06-15-2022 PT Coag (PPP) [Time] 10.7 s 9.0-12.9 [facility] Leukocytes [#/volume] correc chris for nucleated erythrocytes in Blood by Automated counOrdered By: Varghese Duval on 06-15-2022 WBC corrected for nucl RBC Auto (Bld) [#/Vol] 5.4 10*3/uL 4.1-10.5 [facility] Lymphocytes Auto (Bld) [#/Vo l]Ordered By: Varghese Duval on 06-15-2022 Lymphocytes (Bld) [#/Vol] 1.0 10*3/uL 1.00-4.8 [facility] Lymphocytes/100 WBC Auto (Bl d)Ordered By: Varghese Duval on 06-15-2022 Lymphocytes/100 WBC (Bld) 19.3 % . [facility] MCH Auto (RBC) [Entitic mass ]Ordered By: Varghese Duval on 06-15-2022 MCH (RBC) [Entitic mass] 33.2 pg 27.5-35.2 [facility] MCHC Auto (RBC) [Mass/Vol]Or dered By: Varghese Duval on 06-15-2022 MCHC (RBC) [Mass/Vol] 33.5 g/dL 32.5-35.6 [facility] MCV Auto (RBC) [Entitic vol] Ordered By: Varghese Duval on 06-15-2022 MCV (RBC) [Entitic vol] 98.9 fL 83.5-101 [facility] Monocytes Auto (Bld) [#/Vol] Ordered By: Varghese Duval on 06-15-2022 Monocytes (Bld) [#/Vol] 0.5 10*3/uL 0.0-0.8 [facility] Monocytes/100 WBC Auto (Bld) Ordered By: Varghese Duval on 06-15-2022 Monocytes/100 WBC (Bld) 8.8 % . [facility] Neutrophils Auto (Bld) [#/Vo l]Ordered By: Varghese Duval on 06-15-2022 Neutrophils (Bld) [#/Vol] 3.6 10*3/uL 1.8-7.7 [facility] Neutrophils/100 WBC Auto (Bl d)Ordered By: Varghese Duval on 06-15-2022 Neutrophils/100 WBC (Bld) 66.0 % . [facility] Nitrite Test strip Ql (U)Ord ered By: Varghese Duval on 06-15-2022 Nitrite Ql (U) Negative Negative [facility] No Panel InformationOrdered By: Varghese Duval on 06-15-2022 Estimated GFR () > 60 mL/Min [facility] Comment on above: GFR estimated refere nce range: According to KDOQI guidelines, <60 ml/min/1.73m2 is sufficient to diagnose a patient with chronic kidney disease. Pharmacy Creatinine Clearance (Chem N/A [facility] Nucleated erythrocytes [Pres ence] in Blood by Automated countOrdered By: Varghese Duval on 06-15-2022 Nucleated RBC Auto Ql (Bld) 0.2 /100{WBC} 0-0.5 [facility] Platelet mean volume Auto (B ld) [Entitic vol]Ordered By: Varghese Duval on 06-15-2022 Platelet mean volume (Bld) [Entitic vol] 7.4 fL 6.6-10.1 [facility] Platelet poor plasma interna tional normalized ratio (INR) by coagulation assay (relatOrdered By: Varghese Duval on 06-15-2022 INR Coag (PPP) [Relative time] 0.9 {INR} [facility] Comment on above: INR Therapeutic Rang e [...] 06-15-2022 Platelets (Bld) [#/Vol] 212 10*3/uL 150-450 [facility] Protein Auto test strip (U) [Mass/Vol]Ordered By: Varghese Duval on 06-15-2022 Protein (U) [Mass/Vol] Negative Negative [facility] RBC Auto (Bld) [#/Vol]Ordere d By: Varghese Duval on 06-15-2022 RBC (Bld) [#/Vol] 4.30 10*6/uL 3.90-5.60 [facility] Serum or plasma anion gap de terminationOrdered By: Varghese Duval on 06-15-2022 Anion gap [Moles/Vol] 14.4 mmol/L 6.0-15.0 [facility] Serum or plasma calcium ledy urement (mass/volume)Ordered By: Varghese Duval on 06-15-2022 Calcium [Mass/Vol] 8.5 mg/dL 8.2-10.2 [facility] Serum or plasma chloride carlyn surement (moles/volume)Ordered By: Varghese Duval on 06-15-2022 Chloride [Moles/Vol] 98 mmol/L 95-114 [facility] Serum or plasma glucose ledy urement (mass/volume)Ordered By: Varghese Duval on 06-15-2022 Glucose [Mass/Vol] 74 mg/dL 70-100 [facility] Comment on above: ADA recommended refe rence rangeRandom Glucose Reference Range is dependent on time and content of last meal. Glucose of more than 200 mg/dL in a nonstressed, ambulatory subject supports the diagnosis of Diabetes Mellitus. Serum or plasma potassium me asurement (moles/volume)Ordered By: Varghese Duval on 06-15-2022 Potassium [Moles/Vol] 4.2 mmol/L 3.5-5.1 [facility] Serum or plasma sodium measu rement (moles/volume)Ordered By: Varghese Duval on 06-15-2022 Sodium [Moles/Vol] 129 mmol/L 136-146 [facility] Serum or plasma total carbon dioxide measurement (moles/volume)Ordered By: Varghese Duval on 06-15-2022 CO2 [Moles/Vol] 20.8 mmol/L 22.0-30.0 [facility] Serum or plasma urea nitroge n measurement (mass/volume)Ordered By: Varghese Duval on 06-15-2022 Urea nitrogen [Mass/Vol] 4 mg/dL 9-23 [facility] Specific gravity Auto test s trip (U) [Rel density]Ordered By: Varghese Duval on 06-15-2022 Specific gravity (U) [Rel density] 1.008 1.001-1.030 [facility] Urine clarity by refractomet ry automatedOrdered By: Varghese Duval on 06-15-2022 Clarity Refractometry automated (U) Clear Clear [facility] Urine glucose measurement by automated test strip (mass/volume)Ordered By: Varghese Duval 06-15-2022 Glucose Auto test strip (U) [Mass/Vol] Normal mg/dL Normal [facility] Urine hemoglobin detection b y automated test stripOrdered By: Varghese Duval on 06-15-2022 Hemoglobin Auto test strip Ql (U) Negative Negative [facility] Urine leukocyte esterase det ection by automated test stripOrdered By: Varghese Duval 06-15-2022 Leukocyte esterase Auto test strip Ql (U) Negative Negative [facility] Urobilinogen Auto test strip (U) [Mass/Vol]Ordered By: Varghese Duval on 06-15-2022 Urobilinogen (U) [Mass/Vol] Normal mg/dL Normal [facility] WBC Auto (Bld) [#/Vol]Ordere d By: Varghese Duval on 06-15-2022 WBC (Bld) [#/Vol] 5.4 10*3/uL 4.1-10.5 [facility] pH Auto test strip (U)Ordere d By: Varghese Duval on 06-15-2022 pH (U) 5.5 [pH] 5.0-9.0 [facility] CT chest w conon 06-01-2022 CT chest w con [facility] Other CT chest w con [facility] Other CT chest w con [address] [place] [address] [address] [place] [address] No rt [facility] [place] Other CT chest w con CT Scan Report [facility] Other CT chest w con Signed G-[facility] Other CT chest w con Patient: Gustavo Echols N MR#: [id number] [facility] Other CT chest w con [address] [facility] Other CT chest w con : 1965 Acct:[id number] [facility] Other CT chest w con Age/Sex: 57 / M ADM Date: 06/01/[address] chest w con Loc: CT Room: Type: [facility] Other CT chest w con Attending Dr: Rachid Chase MD [facility] Other CT chest w con Copies to: Rachid whitlock MD [facility] Other CT chest w con Ordering Provider: Narinder Chase MD [facility] Other CT chest w con Date of Service: 06/01/[address] chest w con CT/CT chest w con: C34.[address] chest w con CT chest withcontrast [facility] Other CT chest w con TECHNIQUE: Axial adore ging with 2-D reconstruction. 83 cc of [id number] CT exam was performed [facility] Other CT chest w con using one or more th e following dose reduction techniques: Automated exposure control, adjustment of [facility] Other CT chest w con the MA and/or Kv according to patient size, or use of the iterative reconstruction technique. [employer] Other CT chest w con History: History of lung cancer. Chest tightness. Shortness of breath. [facility] Other CT chest w con COMPARISON: 04/10/[address] chest w con No thyroid abnormali ty [id number] present on the left. [facility] Other CT chest w con Central airway is patent. [facility] Other CT chest w con No esophageal abnormality identified. [facility] Other CT chest w con Heart is not enlarge d. No pericardial effusion is seen. [facility] Other CT chest w con Nonenlarged mediasti nal lymph nodes identified. No hilar mass or adenopathy is seen. [employer] Other CT chest w con No thoracic aortic aneurysm is seen. [employer] Other CT chest w con No lung nodules identified. [facility] Other CT chest w con No infiltrate or congestion identified. Developing medial right middle lobe atelectasis. Large [facility] Other CT chest w con right pleural effusi on redemonstrated. This is similar to prior examination. No pneumothorax seen. [facility] Other CT chest w con Emphysematous change s redemonstrated. [facility] Other CT chest w con No chest wall abnormality seen. The bony structures are intact. [facility] Other CT chest w con Images of the upper abdomen are noncontributory. [facility] Other CT chest w con C T/CT chest w con [facility] Other CT chest w con IMPRESSION: Developi ng medial right middle lobe atelectasis. Continued large right pleural [facility] Other CT chest w con effusion. Emphysema. [facility] Other CT chest w con Impression dictated by: Franklin Gomes M.D.06/01/2022 3:[address] [address] chest w con Dictation Location: [place] [address] chest w con Transcribed By: PWS 06/01/[address] chest w con Dictated By: Franklin Gomes DO 06/01/[address] chest w con Signed By: G-CON Other CT chest w con 06/01/22 1520 [employer] Other Creatinine (Bld) [Mass/Vol]O rdered By: Rachid Chase on 06-01-2022 Creatinine [Mass/Vol] 0.8 mg/dL 0.6-1.3 [facility] Comment on above: ER/ESD physician is notified/shown all ISTAT results.Critical values may be confirmed by laboratory testing ifdeemed necessary by ER attending doctor. No Panel InformationOrdered By: Rachid Chase on 06-01-2022 POC Estimated GFR > 60 [facility] Comment on above: GFR estimated refere nce range: According to KDOQI guidelines, <60 ml/min/1.73m2 is sufficient to diagnose a patient with chronic kidney disease. POC Estimated GFR Non- Amer > 60 [facility] Activated partial thrombopla stin time (aPTT) in platelet poor plasma by coagulation aOrdered By: Estela Varma on 04-18-2022 aPTT Coag (PPP) [Time] 44.4 s 25.1-36.5 [facility] Laboratory - CoagulationOrde red By: Estela Varma on 04-18-2022 PT Coag (PPP) [Time] 11.2 s 9.0-12.9 [facility] Platelet poor plasma interna tional normalized ratio (INR) by coagulation assay (relatOrdered By: Estela Varma on 04-18-2022 INR Coag (PPP) [Relative time] 1.0 {INR} [facility] Comment on above: INR Therapeutic Rang e [...] 04-18-2022 Platelets (Bld) [#/Vol] 158 10*3/uL 150-450 [facility] Bacterial blood cultureOrder ed By: Tez Irene on 04-15-2022 Bacteria identified Cx Nom (Bld) NO GROWTH 5 DAYS [facility] Bacteria identified Anaer cx Nom (Unsp spec)Ordered By: Tez Irene on 04-14-2022 Anaerobic microbial culture No Anaerobes Isolated 3 Days [facility] ABO and Rh group post transf usion reaction Nom (Bld)Ordered By: Tez Irene on 04-12-2022 Microscopic observation Gram stain Nom (Unsp spec) [facility] Aerobic cultureOrdered By: Krystina Irene on 04-11-2022 Bacteria identified Aer cx Nom (Unsp spec) No Growth 2 Days [facility] Anaerobic cultureOrdered By: Tez Irene on 04-11-2022 Bacteria identified Anaer cx Nom (Unsp spec) No Anaerobes Isolated 3 Days [facility] Body fluid differential cell countOrdered By: Tez Irene on 04-11-2022 Differential panel (Body fld) 4 % [facility] Comment on above: The reference interv al and other method performance specifications have not been established for this body fluid. The test result must be integrated into the clinical context for interpretation. Differential panel (Body fld) 0 % [facility] Comment on above: The reference interv al and other method performance specifications have not been established for this body fluid. The test result must be integrated into the clinical context for interpretation. Body fluid protein measureme nt (mass/volume)Ordered By: Tez Irene on 04-11-2022 Protein (Body fld) [Mass/Vol] 3.8 g/dL [facility] Cells Counted Total [#] in B sarah fluidOrdered By: Tez Irene on 04-11-2022 Cells Counted Total (Body fld) [#] 1147 /uL [facility] Comment on above: The reference interv al and other method performance specifications have not been established for this body fluid. The test result must be integrated into the clinical context for interpretation. Color of Spun Body fluidOrde red By: Tez Irene on 04-11-2022 Color (Spun body fld) Straw [facility] Comment on above: The reference interv al and other method performance specifications have not been established for this body fluid. The test result must be integrated into the clinical context for interpretation. Determination of appearance of body fluidOrdered By: Tez Irene on 04-11-2022 Appearance (Body fld) Hazy [facility] Comment on above: The reference interv al and other method performance specifications have not been established for this body fluid. The test result must be integrated into the clinical context for interpretation. Erythrocytes [#/volume] in B sarah fluid by Automated countOrdered By: Tez Irene on 04-11-2022 RBC Auto (Body fld) [#/Vol] 90066 mm^3 [facility] Comment on above: The reference interv al and other method performance specifications have not been established for this body fluid. The test result must be integrated into the clinical context for interpretation. Evaluation of color of body fluidOrdered By: Tez Irene on 04-11-2022 Color (Body fld) Straw [facility] Comment on above: The reference interv al and other method performance specifications have not been established for this body fluid. The test result must be integrated into the clinical context for interpretation. Gram stain for investigation of transfusion reactionOrdered By: Tez Irene on 04-11-2022 Microscopic observation Gram stain Nom (Unsp spec) [facility] Lactate dehydrogenase measur ement (enzymatic activity/volume)Ordered By: Tez Irene on 04-11-2022 LDH (Unsp spec) [Catalytic activity/Vol] 88 [IU]/mL [facility] Comment on above: No reference range e stablished LDH (Unsp spec) [Catalytic activity/Vol] 100 U/L 45-190 [facility] Manual body fluid eosinophil s/100 leukocytesOrdered By: Tez Irene on 04-11-2022 Eosinophils/100 WBC Manual cnt (Body fld) 0 /100{WBC} 0-3 [facility] Manual body fluid lymphocyte s/100 leukocytesOrdered By: Tez Irene on 04-11-2022 Lymphocytes/100 WBC Manual cnt (Body fld) 61 % [facility] Comment on above: The reference interv al and other method performance specifications have not been established for this body fluid. The test result must be integrated into the clinical context for interpretation. Neutrophils/100 WBC Manual c nt (Body fld)Ordered By: Tez Irene on 04-11-2022 Neutrophils/100 WBC (Body fld) 35 % [facility] Comment on above: The reference interv al and other method performance specifications have not been established for this body fluid. The test result must be integrated into the clinical context for interpretation. Troponin I.cardiac [Mass/vol ume] in Serum or Plasma by High sensitivity methodOrdered By: Tez Irene on 04-11-2022 Troponin I.cardiac High sensitivity method [Mass/Vol] 5 pg/mL 0-20 [facility] Albumin [Mass/volume] in Ser um or PlasmaOrdered By: Kali Longo on 04-10-2022 Albumin [Mass/Vol] 3.3 g/dL 3.2-5.5 [facility] Albumin [Mass/volume] in Ser um or PlasmaOrdered By: Estela Varma on 04-10-2022 Albumin [Mass/Vol] 3.4 g/dL 3.2-5.5 [facility] Bacterial blood cultureOrder ed By: Tez Irene on 04-10-2022 Bacteria identified Cx Nom (Bld) NO GROWTH 5 DAYS [facility] Basophils Auto (Bld) [#/Vol] Ordered By: Kali Longo on 04-10-2022 Basophils (Bld) [#/Vol] 0.1 10*3/uL 0.0-0.2 [facility] Basophils Auto (Bld) [#/Vol] Ordered By: Estela Varma on 04-10-2022 Basophils (Bld) [#/Vol] 0.1 10*3/uL 0.0-0.2 [facility] Basophils/100 WBC Auto (Bld) Ordered By: Kali Longo on 04-10-2022 Basophils/100 WBC (Bld) 1.0 % . [facility] Basophils/100 WBC Auto (Bld) Ordered By: Estela Varma on 04-10-2022 Basophils/100 WBC (Bld) 0.9 % . [facility] Creatinine and Glomerular fi ltration rate.predicted panel (S/P/Bld)Ordered By: Kali Longo on 04-10-2022 Creatinine [Mass/Vol] 0.86 mg/dL 0.64-1.27 [facility] Creatinine and Glomerular fi ltration rate.predicted panel (S/P/Bld)Ordered By: Estela Varma on 04-10-2022 Creatinine [Mass/Vol] 0.92 mg/dL 0.64-1.27 [facility] Eosinophils Auto (Bld) [#/Vo l]Ordered By: Kali Longo on 04-10-2022 Eosinophils (Bld) [#/Vol] 0.1 10*3/uL 0.0-0.45 [facility] Eosinophils Auto (Bld) [#/Vo l]Ordered By: Estela Varma on 04-10-2022 Eosinophils (Bld) [#/Vol] 0.2 10*3/uL 0.0-0.45 [facility] Eosinophils/100 WBC Auto (Bl d)Ordered By: Kali Longo on 04-10-2022 Eosinophils/100 WBC (Bld) 1.5 % . [facility] Eosinophils/100 WBC Auto (Bl d)Ordered By: Estela Varma on 04-10-2022 Eosinophils/100 WBC (Bld) 2.9 % . [facility] Erythrocyte distribution wid th Auto (RBC) [Ratio]Ordered By: Kali Longo on 04-10-2022 Erythrocyte distribution width (RBC) [Ratio] 14.1 % 12.0-14.8 [facility] Erythrocyte distribution wid th Auto (RBC) [Ratio]Ordered By: Estela Varma on 04-10-2022 Erythrocyte distribution width (RBC) [Ratio] 14.6 % 12.0-14.8 [facility] Estimated glomerular filtrat ion rate (GFR) non- AmericanOrdered By: Kali Longo on 04-10-2022 GFR/1.73 sq M.predicted among non-blacks MDRD (S/P/Bld) [Vol rate/Area] > 60 mL/Min [facility] Estimated glomerular filtrat ion rate (GFR) non- AmericanOrdered By: Estela Varma on 04-10-2022 GFR/1.73 sq M.predicted among non-blacks MDRD (S/P/Bld) [Vol rate/Area] > 60 mL/Min [facility] Globulin Calc (S) [Mass/Vol] Ordered By: Kali Longo on 04-10-2022 Globulin (S) [Mass/Vol] 3.1 g/dL [facility] Globulin Calc (S) [Mass/Vol] Ordered By: Estela Varma on 04-10-2022 Globulin (S) [Mass/Vol] 3.1 g/dL [facility] Hematocrit Auto (Bld) [Volum e fraction]Ordered By: Kali Longo on 04-10-2022 Hematocrit (Bld) [Volume fraction] 44.7 % 38.8-50.0 [facility] Hematocrit Auto (Bld) [Volum e fraction]Ordered By: Estela Varma on 04-10-2022 Hematocrit (Bld) [Volume fraction] 46.1 % 38.8-50.0 [facility] Hemoglobin [Mass/volume] in BloodOrdered By: Kali Longo on 04-10-2022 Hemoglobin (Bld) [Mass/Vol] 15.2 g/dL 13.0-17.0 [facility] Hemoglobin [Mass/volume] in BloodOrdered By: Estela Varma on 04-10-2022 Hemoglobin (Bld) [Mass/Vol] 15.5 g/dL 13.0-17.0 [facility] Laboratory - Chemistry and C hemistry - challengeOrdered By: Kali Longo on 04-10-2022 Natriuretic peptide B (Bld) [Mass/Vol] 19.0 pg/mL 5-100 [facility] Laboratory - Hematology and Cell countsOrdered By: Kali Longo on 04-10-2022 Nucleated RBC/100 WBC (Bld) [Ratio] 0.1 % 0-0.5 [facility] Laboratory - Hematology and Cell countsOrdered By: Estela Varma on 04-10-2022 Nucleated RBC/100 WBC (Bld) [Ratio] 0.1 % 0-0.5 [facility] Leukocytes [#/volume] in Blo od by Automated countOrdered By: Kali Longo on 04-10-2022 WBC (Bld) [#/Vol] 6.1 10*3/uL 4.5-11.0 [facility] Leukocytes [#/volume] in Blo od by Automated countOrdered By: Estela Varma on 04-10-2022 WBC (Bld) [#/Vol] 6.3 10*3/uL 4.5-11.0 [facility] Lymphocytes Auto (Bld) [#/Vo l]Ordered By: Kali Longo on 04-10-2022 Lymphocytes (Bld) [#/Vol] 0.9 10*3/uL 1.00-4.8 [facility] Lymphocytes Auto (Bld) [#/Vo l]Ordered By: Estela Varma on 04-10-2022 Lymphocytes (Bld) [#/Vol] 1.0 10*3/uL 1.00-4.8 [facility] Lymphocytes/100 WBC Auto (Bl d)Ordered By: Kali Longo on 04-10-2022 Lymphocytes/100 WBC (Bld) 14.2 % . [facility] Lymphocytes/100 WBC Auto (Bl d)Ordered By: Estela Varma on 04-10-2022 Lymphocytes/100 WBC (Bld) 16.2 % . [facility] MCH Auto (RBC) [Entitic mass ]Ordered By: Kali Longo on 04-10-2022 MCH (RBC) [Entitic mass] 32.9 pg 27.5-35.2 [facility] MCH Auto (RBC) [Entitic mass ]Ordered By: Estela Varma on 04-10-2022 MCH (RBC) [Entitic mass] 32.6 pg 27.5-35.2 [facility] MCHC Auto (RBC) [Mass/Vol]Or dered By: Kali Longo on 04-10-2022 MCHC (RBC) [Mass/Vol] 33.9 g/dL 32.5-35.6 [facility] MCHC Auto (RBC) [Mass/Vol]Or dered By: Estela Varma on 04-10-2022 MCHC (RBC) [Mass/Vol] 33.6 g/dL 32.5-35.6 [facility] MCV Auto (RBC) [Entitic vol] Ordered By: Kali Longo on 04-10-2022 MCV (RBC) [Entitic vol] 96.9 fL 83.5-101 [facility] MCV Auto (RBC) [Entitic vol] Ordered By: Estela Varma on 04-10-2022 MCV (RBC) [Entitic vol] 97.2 fL 83.5-101 [facility] Monocytes Auto (Bld) [#/Vol] Ordered By: Kali Longo on 04-10-2022 Monocytes (Bld) [#/Vol] 0.6 10*3/uL 0.0-0.8 [facility] Monocytes Auto (Bld) [#/Vol] Ordered By: Estela Varma on 04-10-2022 Monocytes (Bld) [#/Vol] 0.5 10*3/uL 0.0-0.8 [facility] Monocytes/100 WBC Auto (Bld) Ordered By: Kali Longo on 04-10-2022 Monocytes/100 WBC (Bld) 9.9 % . [facility] Monocytes/100 WBC Auto (Bld) Ordered By: Estela Varma on 04-10-2022 Monocytes/100 WBC (Bld) 8.6 % . [facility] Neutrophils Auto (Bld) [#/Vo l]Ordered By: Kali Longo on 04-10-2022 Neutrophils (Bld) [#/Vol] 4.5 10*3/uL 1.8-7.7 [facility] Neutrophils Auto (Bld) [#/Vo l]Ordered By: Estela Varma on 04-10-2022 Neutrophils (Bld) [#/Vol] 4.5 10*3/uL 1.8-7.7 [facility] Neutrophils/100 WBC Auto (Bl d)Ordered By: Kali Longo on 04-10-2022 Neutrophils/100 WBC (Bld) 73.4 % . [facility] Neutrophils/100 WBC Auto (Bl d)Ordered By: Estela Varma on 04-10-2022 Neutrophils/100 WBC (Bld) 71.4 % . [facility] No Panel InformationOrdered By: Kali Longo on 04-10-2022 D-Dimer Quantitative (PE/DVT) 529 ng/mL 0-243 [facility] Comment on above: The reference range for [...] conditions. Estimated GFR () > 60 mL/Min [facility] Comment on above: GFR estimated refere nce range: According to KDOQI guidelines, <60 ml/min/1.73m2 is sufficient to diagnose a patient with chronic kidney disease. Pharmacy Creatinine Clearance (Chem 92.25 [facility] No Panel InformationOrdered By: Estela Varma on 04-10-2022 Estimated GFR () > 60 mL/Min [facility] Comment on above: GFR estimated refere nce range: According to KDOQI guidelines, <60 ml/min/1.73m2 is sufficient to diagnose a patient with chronic kidney disease. Pharmacy Creatinine Clearance (Chem 89.21 [facility] Platelet mean volume Auto (B ld) [Entitic vol]Ordered By: Kali Longo on 04-10-2022 Platelet mean volume (Bld) [Entitic vol] 7.0 fL 6.6-10.1 [facility] Platelet mean volume Auto (B ld) [Entitic vol]Ordered By: Estela Varma on 04-10-2022 Platelet mean volume (Bld) [Entitic vol] 7.4 fL 6.6-10.1 [facility] Platelets Auto (Bld) [#/Vol] Ordered By: Kali Longo on 04-10-2022 Platelets (Bld) [#/Vol] 242 10*3/uL 150-450 [facility] Platelets Auto (Bld) [#/Vol] Ordered By: Estela Varma on 04-10-2022 Platelets (Bld) [#/Vol] 239 10*3/uL 150-450 [facility] Protein [Mass/volume] in Ser um or PlasmaOrdered By: Kali Longo on 04-10-2022 Protein [Mass/Vol] 6.4 g/dL 6.1-7.9 [facility] Protein [Mass/volume] in Ser um or PlasmaOrdered By: Estela Varma on 04-10-2022 Protein [Mass/Vol] 6.5 g/dL 6.1-7.9 [facility] RBC Auto (Bld) [#/Vol]Ordere d By: Kali Longo on 04-10-2022 RBC (Bld) [#/Vol] 4.61 10*6/uL 3.90-5.60 [facility] RBC Auto (Bld) [#/Vol]Ordere d By: Estlea Varma on 04-10-2022 RBC (Bld) [#/Vol] 4.75 10*6/uL 3.90-5.60 [facility] Serum or plasma alanine glynn otransferase measurement without P-5'-P (enzymatic activiOrdered By: Kali Longo on 04-10-2022 ALT No additional P-5'-P [Catalytic activity/Vol] 13 U/L [facility] Serum or plasma alanine glynn otransferase measurement without P-5'-P (enzymatic activiOrdered By: Estela Varma on 04-10-2022 ALT No additional P-5'-P [Catalytic activity/Vol] 14 U/L [facility] Serum or plasma albumin/glob ulin mass ratioOrdered By: Kali Longo on 04-10-2022 Albumin/Globulin [Mass ratio] 1.1 {ratio} [facility] Serum or plasma albumin/glob ulin mass ratioOrdered By: Estela Varma on 04-10-2022 Albumin/Globulin [Mass ratio] 1.1 {ratio} [facility] Serum or plasma alkaline abhijit sphatase measurement (enzymatic activity/volume)Ordered By: Kali Longo on 04-10-2022 ALP [Catalytic activity/Vol] 127 U/L [facility] Serum or plasma alkaline abhijit sphatase measurement (enzymatic activity/volume)Ordered By: Estela Varma on 04-10-2022 ALP [Catalytic activity/Vol] 128 U/L [facility] Serum or plasma anion gap de terminationOrdered By: Kali Longo on 04-10-2022 Anion gap [Moles/Vol] 15.8 mmol/L 6.0-15.0 [facility] Serum or plasma anion gap de terminationOrdered By: Estela Varma on 04-10-2022 Anion gap [Moles/Vol] 17.3 mmol/L 6.0-15.0 [facility] Serum or plasma aspartate am inotransferase measurement (enzymatic activity/volume)Ordered By: Kali Longo on 04-10-2022 AST [Catalytic activity/Vol] 19 U/L [facility] Serum or plasma aspartate am inotransferase measurement (enzymatic activity/volume)Ordered By: Estela Varma on 04-10-2022 AST [Catalytic activity/Vol] 19 U/L [facility] Serum or plasma calcium ledy urement (mass/volume)Ordered By: Kali Longo on 04-10-2022 Calcium [Mass/Vol] 8.5 mg/dL 8.2-10.2 [facility] Serum or plasma calcium ledy urement (mass/volume)Ordered By: Estela Varma on 04-10-2022 Calcium [Mass/Vol] 8.5 mg/dL 8.2-10.2 [facility] Serum or plasma carcinoembry onic antigen measurement (mass/volume)Ordered By: Estela Varma on 04-10-2022 Carcinoembryonic Ag [Mass/Vol] 10.5 ng/mL 0.0-3.0 [facility] Serum or plasma chloride carlyn surement (moles/volume)Ordered By: Kali oLngo on 04-10-2022 Chloride [Moles/Vol] 95 mmol/L 95-114 [facility] Serum or plasma chloride carlyn surement (moles/volume)Ordered By: Estela Varma on 04-10-2022 Chloride [Moles/Vol] 98 mmol/L 95-114 [facility] Serum or plasma glucose ledy urement (mass/volume)Ordered By: Kali Logno on 04-10-2022 Glucose [Mass/Vol] 75 mg/dL 70-100 [facility] Comment on above: ADA recommended refe rence rangeRandom Glucose Reference Range is dependent on time and content of last meal. Glucose of more than 200 mg/dL in a nonstressed, ambulatory subject supports the diagnosis of Diabetes Mellitus. Serum or plasma glucose ledy urement (mass/volume)Ordered By: Estela Varma on 04-10-2022 Glucose [Mass/Vol] 73 mg/dL 70-100 [facility] Comment on above: ADA recommended refe rence rangeRandom Glucose Reference Range is dependent on time and content of last meal. Glucose of more than 200 mg/dL in a nonstressed, ambulatory subject supports the diagnosis of Diabetes Mellitus. Serum or plasma potassium me asurement (moles/volume)Ordered By: Kali Longo on 04-10-2022 Potassium [Moles/Vol] 4.2 mmol/L 3.5-5.1 [facility] Serum or plasma potassium me asurement (moles/volume)Ordered By: Estela Varma on 04-10-2022 Potassium [Moles/Vol] 4.0 mmol/L 3.5-5.1 [facility] Serum or plasma sodium measu rement (moles/volume)Ordered By: Kali Longo on 04-10-2022 Sodium [Moles/Vol] 130 mmol/L 136-146 [facility] Serum or plasma sodium measu rement (moles/volume)Ordered By: Estela Varma on 04-10-2022 Sodium [Moles/Vol] 131 mmol/L 136-146 [facility] Serum or plasma total biliru bin measurement (mass/volume)Ordered By: Kali Longo on 04-10-2022 Bilirubin [Mass/Vol] 0.6 mg/dL 0.3-1.2 [facility] Serum or plasma total biliru bin measurement (mass/volume)Ordered By: Estela Varma on 04-10-2022 Bilirubin [Mass/Vol] 0.7 mg/dL 0.3-1.2 [facility] Serum or plasma total carbon dioxide measurement (moles/volume)Ordered By: Kali Longo on 04-10-2022 CO2 [Moles/Vol] 23.4 mmol/L 22.0-30.0 [facility] Serum or plasma total carbon dioxide measurement (moles/volume)Ordered By: Estela Varma on 04-10-2022 CO2 [Moles/Vol] 19.7 mmol/L 22.0-30.0 [facility] Serum or plasma urea nitroge n measurement (mass/volume)Ordered By: Kali Longo on 04-10-2022 Urea nitrogen [Mass/Vol] 7 mg/dL 02-03 [facility] Serum or plasma urea nitroge n measurement (mass/volume)Ordered By: Estela Varma on 04-10-2022 Urea nitrogen [Mass/Vol] 7 mg/dL 02-03 [facility] TSH DL <= 0.005 mIU/L QnOrde red By: Estela Varma on 04-10-2022 TSH Qn 2.57 m[IU]/L 0.45-5.33 [facility] Troponin I.cardiac [Mass/vol ume] in Serum or Plasma by High sensitivity methodOrdered By: Kali Longo on 04-10-2022 Troponin I.cardiac High sensitivity method [Mass/Vol] 5 pg/mL 0 [facility] Creatinine and Glomerular fi ltration rate.predicted panel (S/P/Bld)Ordered By: Estela Varma on 01-03-2022 Creatinine [Mass/Vol] 0.69 mg/dL 0.64-1.27 [facility] Estimated glomerular filtrat ion rate (GFR) non- AmericanOrdered By: Estela Varma on 01-03-2022 GFR/1.73 sq M.predicted among non-blacks MDRD (S/P/Bld) [Vol rate/Area] > 60 mL/Min [facility] No Panel InformationOrdered By: Estela Varma on 01-03-2022 Estimated GFR () > 60 mL/Min [facility] Comment on above: GFR estimated refere nce range: According to KDOQI guidelines, <60 ml/min/1.73m2 is sufficient to diagnose a patient with chronic kidney disease. Pharmacy Creatinine Clearance (Chem 122.86 [facility] Serum or plasma urea nitroge n measurement (mass/volume)Ordered By: Estela Varma on 01-03-2022 Urea nitrogen [Mass/Vol] 3 mg/dL 02-03 [facility] Office Visit (Cardiology)on 11-29-2021 Follow-up visit Diagnoses/Problems Assessed Lung cancer (162.9) (C34.90) Chest pain (786.50) (R07.9) Former smoker (V15.82) (Z87.891) quit 2020 1ppd Body mass index (BMI) of 20.0 to 20.9 in adult (V85.1) (Z68.20) COPD (chronic obstructive pulmonary disease) (496) (J44.9) Orders Health Maintenance Depression Follow-up Visit Outpatient Follow-up Status: Complete Done: [id number] SocHx: Former smoker Tobacco Use Screening; Status:Complete; Done: [id number] Patient Instructions By signing my name below, [...] Complaint Follow up Heart Cath results. 56-year-old Afro-[place] gentleman returns with chief complaints of chest [...] catheterization performed this year Recommendations: We did certified substance abuse counselor him on seeking further assistance in [...] negative for complaint. Vitals Vital Signs Recorded: [id number] 09:05AM Heart Rate96, R Radial [id number], RUE, Sitting Etedptent16, RUE, Sitting Blood Pressure Cuff SizeAdult Height6 ft [id number] lb 8 oz BMI Uwlleckjoh27.28 kg/m2 BSA Calculated1.88 Tobacco Useb) No (more content not included)... Normal [facility] CARDIAC SONIA 3-6on 2 CK [Catalytic activity/Vol] 55 U/L Normal 39-308 [facility] Comment on above: Performed By: #### C MREP #### [facility] [address] [place] [address] Dr. Sushant Pradhan CK.MB [Mass/Vol] 1.25 ng/mL Normal <=3.60 [facility] Comment on above: Performed By: #### C MREP #### [facility] [address] [place] [address] Dr. Sushant Pradhan HSTROP 4.5 pg/mL Normal 4.0-76.1 [facility] Comment on above: Result Comment: CUT- OFF POINTS HAVE BEEN ESTABLISHED BASED ON THE FOURTH UNIVERSAL DEFINITIONS OF MYOCARDIAL INFARCTION. THE UPPER REFERENCE LIMIT (URL) OF TROPONIN, DEFINED THE 99TH PERCENTILE OF cTnI DISTRIBUTION IN A REFERENCE POPULATION, HAS BEEN CONFIRMED THE DECISION THRESHOLD FOR SC DIAGNOSIS. Performed By: #### C MREP #### [facility] [address] [place] [address] Dr. Sushant Pradhan CBC AUTO DIFFon 11-24-2021 BASO # 0.0 103/ul Normal 0.0-0.1 [facility] Comment on above: Performed By: #### C BC #### [facility] [address] [place] [address] Dr. Sushant Pradhan Basophils/100 WBC (Bld) 0.2 % Normal 0.2-2.0 [facility] Comment on above: Performed By: #### C BC #### [facility] [address] [place] [address] Dr. Sushant Pradhan EO # 0.0 103/ul Normal 0.0-0.7 [facility] Comment on above: Performed By: #### C BC #### [facility] [address] [place] [address] Dr. Sushant Pradhan Eosinophils/100 WBC (Bld) 0.0 % Critically low 0.9-7.0 [facility] Comment on above: Performed By: #### C BC #### [facility] [address] [place] [address] Dr. Sushant Pradhan Erythrocyte distribution width (RBC) [Ratio] 14.7 % Normal 11.0-15.0 [facility] Comment on above: Performed By: #### C BC #### [facility] [address] [place] [address] Dr. Sushant Pradhan Hematocrit (Bld) [Volume fraction] 35.5 % Critically low 42.0-54.0 [facility] Comment on above: Performed By: #### C BC #### [facility] [address] [place] [address] Dr. Sushant Pradhan Hemoglobin (Bld) [Mass/Vol] 12.8 g/dL Critically low 14.0-18.0 [facility] Comment on above: Performed By: #### C BC #### [facility] [address] [place] [address] Dr. Sushant Pradhan IG # 0.01 10e3/ul Normal 0.00-0.03 [facility] Comment on above: Performed By: #### C BC #### [facility] [address] [place] [address] Dr. Sushatn Pradhan IG % 0.2 % Normal 0.0-0.5 [facility] Comment on above: Performed By: #### C BC #### [facility] [address] [place] [address] Dr. Sushant Pradhan LYMPH # 0.5 103/ul Critically low 1.2-3.8 [facility] Comment on above: Performed By: #### C BC #### [facility] [address] [place] [address] Dr. Sushant Pradhan Lymphocytes/100 WBC (Bld) 8.2 % Critically low 20.5-60.0 [facility] Comment on above: Performed By: #### C BC #### [facility] [address] [place] [address] Dr. Sushant Prdahan MANUAL DIFF REQ NO Normal [facility] Comment on above: Performed By: #### C BC #### [facility] [address] [place] [address] Dr. Sushant Pradhan MCH (RBC) [Entitic mass] 32.5 pg Normal 25.9-34.0 [facility] Comment on above: Performed By: #### C BC #### [facility] [address] [place] [address] Dr. Sushant Pradhan MCHC (RBC) [Mass/Vol] 36.1 g/dL Critically high 29.9-35.2 [facility] Comment on above: Performed By: #### C BC #### [facility] [address] [place] [address] Dr. Sushant Pradhan MCV (RBC) [Entitic vol] 90.1 fL Normal 80.0-94.0 [facility] Comment on above: Performed By: #### C BC #### [facility] [address] [place] [address] Dr. Sushant Pradhan MONO # 0.2 103/ul Critically low 0.3-0.8 [facility] Comment on above: Performed By: #### C BC #### [facility] [address] [place] [address] Dr. Sushant Pradhan Monocytes/100 WBC (Bld) 3.5 % Normal 1.7-12.0 [facility] Comment on above: Performed By: #### C BC #### [facility] [address] [place] [address] Dr. Sushant Pradhan NEUT # 4.8 103/ul Normal 1.4-6.5 [facility] Comment on above: Performed By: #### C BC #### [facility] [address] [place] [address] Dr. Sushant Pradhan Neutrophils/100 WBC (Bld) 87.9 % Critically high 43.0-75.0 [facility] Comment on above: Performed By: #### C BC #### [facility] [address] [place] [address] Dr. Sushant Pradhan Platelet mean volume (Bld) [Entitic vol] 9.4 fL Critically low 9.5-13.5 [facility] Comment on above: Performed By: #### C BC #### [facility] [address] [address] [address] Sushant Pradhan PLT 135 103/ul Critically low 150-450 [facility] Comment on above: Performed By: #### C BC #### [facility] [address] [address] [address] Sushant Pradhan RBC 3.94 106/ul Critically low 4.70-6.10 [facility] Comment on above: Performed By: #### C BC #### [facility] [address] [place] [address] Dr. Sushant Pradhan WBC 5.5 103/ul Normal 4.0-11.0 [facility] Comment on above: Performed By: #### C BC #### [facility] [address] [place] [address] Dr. Sushant Pradhan LIPID PROFILEon 11-24-2021 CHOL-HDL RATIO NORM SEE BELOW Normal [facility] Comment on above: Result Comment: 3.3 - 4.4 LOW RISK 4.4 - 7.1 AVERAGE RISK 7.1 - 11.0 MODERATE RISK >11.0 HIGH RISK Performed By: #### L IPID, BMP #### [facility] [address] [place] [address] Dr. Sushant Pradhan Cholesterol [Mass/Vol] 126 mg/dL Normal <=200 [facility] Comment on above: Performed By: #### L IPID, BMP #### [facility] [address] [place] [address] Dr. Sushant Pradhan Cholesterol in HDL [Mass/Vol] 73 mg/dL Critically high 40-60 [facility] Comment on above: Performed By: #### L IPID, BMP #### [facility] [address] [place] [address] Dr. Sushant Pradhan Cholesterol in LDL [Mass/Vol] 44.2 mg/dL Normal [facility] Comment on above: Performed By: #### L IPID, BMP #### [facility] [address] [address] [address] Sushant Pradhan Cholesterol.total/Cho lesterol in HDL [Mass ratio] 1.7 {ratio} Normal [facility] Comment on above: Performed By: #### L IPID, BMP #### [facility] [address] [address] [address] Sushant Pradhan HDL NORMAL > or = 60 mg/dl - LO W CARDIOVASCULAR RISK <40 mg/dl - HIGH CARDIOVASCULAR RISK Normal [facility] Comment on above: Performed By: #### L IPID, BMP #### [facility] [address] [address] [address] Sushant Pradhan LDL CALC NORMAL SEE BELOW Normal [facility] Comment on above: Result Comment: <100 mg/dl OPTIMAL 100 - 129 mg/dl NEAR OR ABOVE OPTIMAL 130 - 159 mg/dl BORDERLINE HIGH 160 - 189 mg/dl HIGH >190 mg/dl VERY HIGH Performed By: #### L IPID, BMP #### [facility] [address] [place] [address] Dr. Sushant Pradhan Triglyceride [Mass/Vol] 44 mg/dL Normal <=150 [facility] Comment on above: Performed By: #### L IPID, BMP #### [facility] [address] [address] [address] Sushant Pradhan VLDL CALC 8.8 mg/dL Normal [facility] Comment on above: Performed By: #### L IPID, BMP #### [facility] [address] [place] [address] Dr. Sushant Pradhan NM STRESS/REST MULTIon 11-24 NM STRESS/REST MULTI Patient: EDISON ECHOLS N. Exam Date: 11/24/2021 : 1965 Gender:M Ordering : DR LIZBET LARA . Admission #: [id number] Family : Order #: [id number] CLICK HERE TO VIEW EXAM RADIOLOGY REPORT [...] MD on 11/24/2021 at 15:06 Normal [facility] PROF CHEM 8 (BAS METB)on Anion gap [Moles/Vol] 10.7 mmol/L Normal [facility] Comment on above: Performed By: #### L IPID, BMP #### [facility] [address] [place] [address] Dr. Sushant Pradhan Calcium [Mass/Vol] 8.5 mg/dL Normal 8.5-10.1 [facility] Comment on above: Performed By: #### L IPID, BMP #### [facility] [address] [place] [address] Dr. Sushant Pradhan Chloride [Moles/Vol] 96 mmol/L Critically low 98-107 [facility] Comment on above: Performed By: #### L IPID, BMP #### [facility] [address] [place] [address] Dr. Sushant Pradhan CO2 [Moles/Vol] 22.0 mmol/L Normal 21.0-32.0 [facility] Comment on above: Performed By: #### L IPID, BMP #### [facility] [address] [address] [address] Sushant Pradhan Creatinine [Mass/Vol] 1.04 mg/dL Normal 0.70-1.30 [facility] Comment on above: Performed By: #### L IPID, BMP #### [facility] [address] [place] [address] Dr. Sushant Pradhan EGFR-AF ITALIAN >60 Normal >=60 [facility] Comment on above: Performed By: #### L IPID, BMP #### [facility] [address] [place] [address] Dr. Sushant Pradhan EGFR-NON AF ITALIAN >60 Normal >=60 [facility] Comment on above: Performed By: #### L IPID, BMP #### [facility] [address] [place] [address] Dr. Sushant Pradhan Glucose [Mass/Vol] 139 mg/dL Critically high 74-106 [facility] Comment on above: Performed By: #### L IPID, BMP #### [facility] [address] [place] [address] Dr. Sushant Pradhan Potassium [Moles/Vol] 4.2 mmol/L Normal 3.5-5.1 [facility] Comment on above: Performed By: #### L IPID, BMP #### [facility] [address] [place] [address] Dr. Sushant Pradhan Sodium [Moles/Vol] 127 mmol/L Critically low 136-145 [facility] Comment on above: Performed By: #### L IPID, BMP #### [facility] [address] [place] [address] Dr. Sushant Pradhan Urea nitrogen [Mass/Vol] 12.0 mg/dL Normal 7.0-18.0 [facility] Comment on above: Performed By: #### L IPID, BMP #### [facility] [address] [place] [address] Dr. Sushant Pradhan Urea nitrogen/Creatinine [Mass ratio] 11.5 mg/mg Normal [facility] Comment on above: Performed By: #### L IPID, BMP #### [facility] [address] [place] [address] Dr. Sushant Pradhan BNPon 11-23-2021 Natriuretic peptide B (Bld) [Mass/Vol] 189.0 pg/mL Normal <=900.0 [facility] Comment on above: Performed By: #### B HELP DESK SUPERVISOR, HSTROPN, BMP #### [facility] [address] [place] [address] Dr. Sushant Pradhan CARDIAC SONIA 3-6on 2 CK [Catalytic activity/Vol] 73 U/L Normal 39-308 [facility] Comment on above: Performed By: #### C MREP #### [facility] [address] [place] [address] Dr. Sushant Pradhan CK.MB [Mass/Vol] 1.78 ng/mL Normal <=3.60 [facility] Comment on above: Performed By: #### C MREP #### [facility] [address] [place] [address] Dr. Sushant Pradhan HSTROP 4.2 pg/mL Normal 4.0-76.1 [facility] [place] [facility] Comment on above: Result Comment: CUT- OFF POINTS HAVE BEEN ESTABLISHED BASED ON THE FOURTH UNIVERSAL DEFINITIONS OF MYOCARDIAL INFARCTION. THE UPPER REFERENCE LIMIT (URL) OF TROPONIN, DEFINED THE 99TH PERCENTILE OF cTnI DISTRIBUTION IN A REFERENCE POPULATION, HAS BEEN CONFIRMED THE DECISION THRESHOLD FOR SC DIAGNOSIS. Performed By: #### C MREP #### [facility] [address] [place] [address] Dr. Sushant Pradhan CBC AUTO DIFFon 11-23-2021 BASO # 0.0 103/ul Normal 0.0-0.1 [facility] Comment on above: Performed By: #### C BC #### [facility] [address] [place] [address] Dr. Sushant Pradhan Basophils/100 WBC (Bld) 0.5 % Normal 0.2-2.0 [facility] Comment on above: Performed By: #### C BC #### [facility] [address] [place] [address] Dr. Sushant Pradhan EO # 0.1 103/ul Normal 0.0-0.7 [facility] Comment on above: Performed By: #### C BC #### [facility] [address] [place] [address] Dr. Sushant Pradhan Eosinophils/100 WBC (Bld) 0.9 % Normal 0.9-7.0 [facility] Comment on above: Performed By: #### C BC #### [facility] [address] [place] [address] Dr. Sushant Pradhan Erythrocyte distribution width (RBC) [Ratio] 15.3 % Critically high 11.0-15.0 [facility] Comment on above: Performed By: #### C BC #### [facility] [address] [place] [address] Dr. Sushant Pradhan Hematocrit (Bld) [Volume fraction] 38.7 % Critically low 42.0-54.0 [facility] Comment on above: Performed By: #### C BC #### [facility] [address] [place] [address] Dr. Sushant Pradhan Hemoglobin (Bld) [Mass/Vol] 14.0 g/dL Normal 14.0-18.0 [facility] Comment on above: Performed By: #### C BC #### [facility] [address] [place] [address] Dr. Sushant Pradhan IG # 0.01 10e3/ul Normal 0.00-0.03 [facility] Comment on above: Performed By: #### C BC #### [facility] [address] [place] [address] Dr. Sushant Pradhan IG % 0.2 % Normal 0.0-0.5 [facility] [place] [facility] Comment on above: Performed By: #### C BC #### [facility] [address] [place] [address] Dr. Sushant Pradhan LYMPH # 1.1 103/ul Critically low 1.2-3.8 [facility] Comment on above: Performed By: #### C BC #### [facility] [address] [place] [address] Dr. Sushant Pradhan Lymphocytes/100 WBC (Bld) 17.2 % Critically low 20.5-60.0 [facility] Comment on above: Performed By: #### C BC #### [facility] [address] [place] [address] Dr. Sushant Pradhan MANUAL DIFF REQ NO Normal [facility] Comment on above: Performed By: #### C BC #### [facility] [address] [place] [address] Dr. Sushant Pradhan MCH (RBC) [Entitic mass] 32.7 pg Normal 25.9-34.0 [facility] Comment on above: Performed By: #### C BC #### [facility] [address] [place] [address] Dr. Sushant Pradhan MCHC (RBC) [Mass/Vol] 36.2 g/dL Critically high 29.9-35.2 [facility] Comment on above: Performed By: #### C BC #### [facility] [address] [place] [address] Dr. Sushant Pradhan MCV (RBC) [Entitic vol] 90.4 fL Normal 80.0-94.0 [facility] Comment on above: Performed By: #### C BC #### [facility] [address] [place] [address] Dr. Sushant Pradhan MONO # 0.5 103/ul Normal 0.3-0.8 [facility] Comment on above: Performed By: #### C BC #### [facility] [address] [place] [address] Dr. Sushant Pradhan Monocytes/100 WBC (Bld) 7.8 % Normal 1.7-12.0 [facility] Comment on above: Performed By: #### C BC #### [facility] [address] [place] [address] Dr. Sushant Pradhan NEUT # 4.7 103/ul Normal 1.4-6.5 [facility] Comment on above: Performed By: #### C BC #### [facility] [address] [place] [address] Dr. Sushant Pradhan Neutrophils/100 WBC (Bld) 73.4 % Normal 43.0-75.0 [facility] Comment on above: Performed By: #### C BC #### [facility] [address], [place] [address] Dr. Sushant Pradhan Platelet mean volume (Bld) [Entitic vol] 9.1 fL Critically low 9.5-13.5 [facility] Comment on above: Performed By: #### C BC #### [facility] [address] [address] [address] Sushant Pradhan PLT 153 103/ul Normal 150-450 [facility] Comment on above: Performed By: #### C BC #### [facility] [address], [place] [address] Dr. Sushant Pradhan RBC 4.28 106/ul Critically low 4.70-6.10 [facility] Comment on above: Performed By: #### C BC #### [facility] [address] [address] [address] Sushant Pradhan WBC 6.4 103/ul Normal 4.0-11.0 [facility] Comment on above: Performed By: #### C BC #### [facility] [address] [place] [address] Dr. Sushant Pradhan CTA CHEST WO W [...] MARCE PAGAN Date: 2021-11-23 15:47 Normal [facility] Covid-19 PCR (CVDTB)on 11-11 SARS-CoV-2 (COVID-19) RNA DEANA+probe Ql (Unsp spec) Not detected Normal NOT DETECTED [facility] Comment on above: Result Comment: When [...] for this test is supported by the [employer]er of Health and Human Service's declaration that [...] used). Performed By: #### C BC #### [facility] [address] [place] [address] Dr. Sushant Pradhan PROF CHEM 8 (BAS METB)on Anion gap [Moles/Vol] 13.9 mmol/L Normal [facility] Comment on above: Performed By: #### B HELP DESK SUPERVISOR, HSTROPN, BMP #### [facility] [address] [place] [address] Dr. Sushant Pradhan Calcium [Mass/Vol] 8.4 mg/dL Critically low 8.5-10.1 [facility] Comment on above: Performed By: #### B HELP DESK SUPERVISOR HSTROPN, BMP #### [facility] [address] [place] [address] Dr. Sushant Pradhan Chloride [Moles/Vol] 94 mmol/L Critically low 98-107 [facility] Comment on above: Performed By: #### B HELP DESK SUPERVISOR, HSTROPN, BMP #### [facility] [address] [address] [address] Sushant Pradhan CO2 [Moles/Vol] 24.7 mmol/L Normal 21.0-32.0 [facility] Comment on above: Performed By: #### B HELP DESK SUPERVISOR, HSTROPN, BMP #### [facility] [address] [address] [address] Sushant Pradhan Creatinine [Mass/Vol] 0.97 mg/dL Normal 0.70-1.30 [facility] Comment on above: Performed By: #### B HELP DESK SUPERVISOR, HSTROPN, BMP #### [facility] [address] [address] [address] Sushant Pradhan EGFR-AF ITALIAN >60 Normal >=60 [facility] Comment on above: Performed By: #### B HELP DESK SUPERVISOR, HSTROPN, BMP #### [facility] [address] [place] [address] Dr. Sushant Pradhan EGFR-NON AF ITALIAN >60 Normal >=60 [facility] Comment on above: Performed By: #### B HELP DESK SUPERVISOR, HSTROPN, BMP #### [facility] [address] [address] [address] Sushant Pradhan Glucose [Mass/Vol] 76 mg/dL Normal 74-106 [facility] Comment on above: Performed By: #### B HELP DESK SUPERVISOR, HSTROPN, BMP #### [facility] [address] [address] [address] Sushant Pradhan Potassium [Moles/Vol] 4.6 mmol/L Normal 3.5-5.1 [facility] Comment on above: Performed By: #### B HELP DESK SUPERVISOR, HSTROPN, BMP #### [facility] [address] [address] [address] Sushant Pradhan Sodium [Moles/Vol] 128 mmol/L Critically low 136-145 [facility] Comment on above: Performed By: #### B HELP DESK SUPERVISOR, HSTROPN, BMP #### [facility] [address] [address] [address] Sushant Pradhan Urea nitrogen [Mass/Vol] 9.0 mg/dL Normal 7.0-18.0 [facility] Comment on above: Performed By: #### B HELP DESK SUPERVISOR, HSTROPN, BMP #### [facility] [address] [place] [address] [address] [address] Sushant Pradhan Urea nitrogen/Creatinine [Mass ratio] 9.3 mg/mg Normal [facility] Comment on above: Performed By: #### B HELP DESK SUPERVISOR, HSTROPN, BMP #### [facility] [address] [place], [place] [id number] Dr. Sushant Pradhan TROPONIN, HIGH SENSITIVITYon 11-23-2021 HSTROP 4.4 pg/mL Normal 4.0-76.1 [facility] Comment on above: Result Comment: CUT- OFF POINTS HAVE BEEN ESTABLISHED BASED ON THE FOURTH UNIVERSAL DEFINITIONS OF MYOCARDIAL INFARCTION. THE UPPER REFERENCE LIMIT (URL) OF TROPONIN, DEFINED THE 99TH PERCENTILE OF cTnI DISTRIBUTION IN A REFERENCE POPULATION, HAS BEEN CONFIRMED THE DECISION THRESHOLD FOR SC DIAGNOSIS. Performed By: #### B HELP DESK SUPERVISOR, HSTROPN, BMP #### [facility] [address] [place] [address] Dr. Sushant Pradhan Laboratory - Chemistry and C hemistry - challengeon 09-09-2021 Cholesterol [Mass/Vol] 125\S\125 below low threshold 140-200 [facility] y 250 DO Work Phone: Comment on above: Chol less than 200 m g/dl low risk Chol 201-239 mg/dl borderline risk Chol 240 mg/dl and greater high risk Cholesterol in LDL [Mass/Vol] 46\S\46 Normal 0-100 [facility] y 250 DO Work Phone: Comment on above: LDL ATP III CLASSIFI CATION LDL less than 100 mg/dL Optimal LDL 100-129 mg/dL Near or above optimal LDL 130-159 mg/dL Borderline high LDL 160-189 mg/dL High LDL greater than 189 mg/dL Very high Laboratory - Microbiology an d Antimicrobial susceptibilityon 09-09-2021 SARS-CoV-2 (COVID-19) RNA DEANA+probe Ql (Unsp spec) [facility] y 250 DO Work Phone: No Panel Informationon 09-09 78.5\S\78.5 above high threshold 25.1-36.5 [facility] y [address] DO Work Phone: Comment on above: PERFORMED BY:[address] [place] [phone] MEDICAL DIRECTORCATY DELCID M.D. 1.0\S\1.0 Normal [facility] DO Work Phone: Comment [...] valves: 3 - 4.5 11.5\S\11.5 Normal 9.0-12.9 [facility] [address] DO Work Phone: 1.8\S\1.8 Normal <5.0 [facility] [address] DO Work Phone: Comment on above: PERFORMED BY:[address] [address] [place], [place] [phone] MEDICAL DIRECTORCATY DELCID M.D. 11\S\11 Normal [facility] [address] DO Work Phone: 57\S\57 Normal 35-149 [facility] DO Work Phone: Comment on above: TRIG ATP III CLASSIF ICATION TRIG less than 150 mg/dL Normal TRIG 150-199 mg/dL Borderline high TRIG 200-500 mg/dL High TRIG greater than 500 mg/dL Very high Standard traceable to the Center for Disease Conrtrol and Prevention (CDC) test method. 68\S\68 Normal 29-71 [facility] [address] DO Work Phone: Comment on above: HDL CHOL ATP-III CLA SSIFICATION Cardiovascular Risk HDL > or equal to 60 mg/dL LOW HDL < 40 mg/dL HIGH Negative Normal Negative -[facility] [address] DO Work Phone: Comment on above: This is a duplicate Jonna SARS Antigen (EROS) result to be used for statistical tracking purpose only.PERFORMED BY:[facility] [place], [place] [phone] MEDICAL DIRECTORCATY DELCID M.D. 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) Orders Angina, class IV, Chest pain Cardiac Catherization; Status:Active - Retrospective Authorization; Requested for:[id number]; Chest pain Start: Aspirin 81 MG Oral Tablet Delayed Release; TAKE 1 TABLET DAILY DIRECTED Start: Metoprolol Tartrate 25 MG Oral Tablet; TAKE 0.5 TABLET Twice daily Start: Nitroglycerin 0.4 MG/HR Transdermal Patch 24 Hour; APPLY PATCH FOR 12 TO 14 HOURS DAILY, THEN REMOVE Health Maintenance IO EKG Electrocardiogram- 12 Lead; Status:Complete; Done: [id number] Lung cancer PHQ2 Screen Positive; Status:Complete - Retrospective Authorization; Done: [id number] SocHx: Former smoker Tobacco Use Screening; Status:Complete; Done: [id number] Patient Instructions By signing my name below, [...] pain and dyspnea. Patient is a 56-year-old -[place] gentleman returns and seen in cardiology consultation [...] negative for complaint. Vitals Vital Signs Recorded: [id number] 10:09AMRecorded: [id number] 10:05AM [id number], LUE, [id number], RUE, Sitting [id number], LUE, Sirybwh49, RUE, Sitting Heart Rate96, Apical Height6 ft Cueydn006 lb BMI Eieqlmqyuu87.16 kg/m2 BSA (more content not included)... Normal [facility] Tobacco Screening.on 022 Adult depression screening assessment Yes [facility] DO Work Phone: Fall risk assessment c) Not medically indicated [facility] y 250 DO Work Phone: Tobacco use status [facility] b) No [facility] 250 DO Work Phone: Tobacco Screening. 3-Nearly every day [facility] DO Work Phone: Tobacco Screening. 2-More than half the days [facility] y [facility] DO Work Phone: Tobacco Screening. 0-Not at all [facility] [address] DO Work Phone: Tobacco Screening. Extremely Difficult [facility] [address] DO Work Phone: Albumin [Mass/volume] in Ser um or PlasmaOrdered By: Estela Varma on 09-02-2021 Albumin [Mass/Vol] 3.8 g/dL 3.2-5.5 [facility] Basophils Auto (Bld) [#/Vol] Ordered By: Estela Varma on 09-02-2021 Basophils (Bld) [#/Vol] 0.0 10*3/uL 0.0-0.2 [facility] Basophils/100 WBC Auto (Bld) Ordered By: Estela Varma on 09-02-2021 Basophils/100 WBC (Bld) 0.7 % . [facility] Eosinophils Auto (Bld) [#/Vo l]Ordered By: Estela Varma on 09-02-2021 Eosinophils (Bld) [#/Vol] 0.2 10*3/uL 0.0-0.45 [facility] Eosinophils/100 WBC Auto (Bl d)Ordered By: Estela Varma on 09-02-2021 Eosinophils/100 WBC (Bld) 4.2 % . [facility] Erythrocyte distribution wid th Auto (RBC) [Ratio]Ordered By: Estela Varma on 09-02-2021 Erythrocyte distribution width (RBC) [Ratio] 15.7 % 12.0-14.8 [facility] Globulin Calc (S) [Mass/Vol] Ordered By: Estela Varma on 09-02-2021 Globulin (S) [Mass/Vol] 3.4 g/dL [facility] Glucose Glucometer (BldC) [M ass/Vol]Ordered By: George Ash on 09-02-2021 Glucose [Mass/Vol] 82 mg/dL [facility] Comment on above: Random Glucose Refer ence Range is dependent on time and content of last meal. Glucose of more than 200 mg/dL in a nonstressed, ambulatory subject supports the diagnosis of Diabetes Mellitus. Hematocrit Auto (Bld) [Volum e fraction]Ordered By: Estela Varma on 09-02-2021 Hematocrit (Bld) [Volume fraction] 42.4 % 38.8-50.0 [facility] Hemoglobin [Mass/volume] in BloodOrdered By: Estela Varma on 09-02-2021 Hemoglobin (Bld) [Mass/Vol] 14.6 g/dL 13.0-17.0 [facility] Laboratory - Hematology and Cell countsOrdered By: Estela Varma on 09-02-2021 Nucleated RBC/100 WBC (Bld) [Ratio] 0.1 % 0-0.5 [facility] Leukocytes [#/volume] in Blo od by Automated countOrdered By: Estela Varma on 09-02-2021 WBC (Bld) [#/Vol] 5.0 10*3/uL 4.5-11.0 [facility] Lymphocytes Auto (Bld) [#/Vo l]Ordered By: Estela Varma on 09-02-2021 Lymphocytes (Bld) [#/Vol] 0.9 10*3/uL 1.00-4.8 [facility] Lymphocytes/100 WBC Auto (Bl d)Ordered By: Estela Varma on 09-02-2021 Lymphocytes/100 WBC (Bld) 18.2 % . [facility] MCH Auto (RBC) [Entitic mass ]Ordered By: Estela Varma on 09-02-2021 MCH (RBC) [Entitic mass] 32.6 pg 27.5-35.2 [facility] MCHC Auto (RBC) [Mass/Vol]Or dered By: Estela Varma on 09-02-2021 MCHC (RBC) [Mass/Vol] 34.4 g/dL 32.5-35.6 [facility] MCV Auto (RBC) [Entitic vol] Ordered By: Estela Varma on 09-02-2021 MCV (RBC) [Entitic vol] 94.8 fL 83.5-101 [facility] Monocytes Auto (Bld) [#/Vol] Ordered By: Estela Varma on 09-02-2021 Monocytes (Bld) [#/Vol] 0.4 10*3/uL 0.0-0.8 [facility] Monocytes/100 WBC Auto (Bld) Ordered By: Estela Varma on 09-02-2021 Monocytes/100 WBC (Bld) 7.9 % . [facility] Neutrophils Auto (Bld) [#/Vo l]Ordered By: Estela Varma on 09-02-2021 Neutrophils (Bld) [#/Vol] 3.5 10*3/uL 1.8-7.7 [facility] Neutrophils/100 WBC Auto (Bl d)Ordered By: Estela Varma on 09-02-2021 Neutrophils/100 WBC (Bld) 69.0 % . [facility] Platelet mean volume Auto (B ld) [Entitic vol]Ordered By: Estela Varma on 09-02-2021 Platelet mean volume (Bld) [Entitic vol] 7.0 fL 6.6-10.1 [facility] Platelets Auto (Bld) [#/Vol] Ordered By: Estela Varma on 09-02-2021 Platelets (Bld) [#/Vol] 186 10*3/uL 150-450 [facility] Protein [Mass/volume] in Ser um or PlasmaOrdered By: Estela Varma on 09-02-2021 Protein [Mass/Vol] 7.2 g/dL 6.1-7.9 [facility] RBC Auto (Bld) [#/Vol]Ordere d By: Estela Varma on 09-02-2021 RBC (Bld) [#/Vol] 4.48 10*6/uL 3.90-5.60 [facility] Serum or plasma alanine glynn otransferase measurement without P-5'-P (enzymatic activiOrdered By: Estela Varma on 09-02-2021 ALT No additional P-5'-P [Catalytic activity/Vol] 13 U/L 10-60 [facility] Serum or plasma albumin/glob ulin mass ratioOrdered By: Estela Varma on 09-02-2021 Albumin/Globulin [Mass ratio] 1.1 {ratio} [facility] Serum or plasma alkaline abhijit sphatase measurement (enzymatic activity/volume)Ordered By: Estela Varma on 09-02-2021 ALP [Catalytic activity/Vol] 130 U/L 32-92 [facility] Serum or plasma aspartate am inotransferase measurement (enzymatic activity/volume)Ordered By: Estela Varma on 09-02-2021 AST [Catalytic activity/Vol] 18 U/L 10-42 [facility] Serum or plasma calcium ledy urement (mass/volume)Ordered By: Estela Varma on 09-02-2021 Calcium [Mass/Vol] 9.0 mg/dL 8.2-10.2 [facility] Serum or plasma carcinoembry onic antigen measurement (mass/volume)Ordered By: Estela Varma on 09-02-2021 Carcinoembryonic Ag [Mass/Vol] 11.4 ng/mL 0.0-3.0 [facility] Serum or plasma chloride carlyn surement (moles/volume)Ordered By: Estela Varma on 09-02-2021 Chloride [Moles/Vol] 100 mmol/L 95-114 [facility] Serum or plasma glucose ledy urement (mass/volume)Ordered By: Estela Varma on 09-02-2021 Glucose [Mass/Vol] 78 mg/dL 70-100 [facility] Comment on above: ADA recommended refe rence rangeRandom Glucose Reference Range is dependent on time and content of last meal. Glucose of more than 200 mg/dL in a nonstressed, ambulatory subject supports the diagnosis of Diabetes Mellitus. Serum or plasma potassium me asurement (moles/volume)Ordered By: Estela Varma on 09-02-2021 Potassium [Moles/Vol] 4.3 mmol/L 3.5-5.1 [facility] Serum or plasma sodium measu rement (moles/volume)Ordered By: Estela Varma on 09-02-2021 Sodium [Moles/Vol] 133 mmol/L 136-146 [facility] Serum or plasma total biliru bin measurement (mass/volume)Ordered By: Estela Varma on 09-02-2021 Bilirubin [Mass/Vol] 0.6 mg/dL 0.3-1.2 [facility] Serum or plasma total carbon dioxide measurement (moles/volume)Ordered By: Estela Varma on 09-02-2021 CO2 [Moles/Vol] 23.9 mmol/L 22.0-30.0 [facility] TSH DL <= 0.005 mIU/L QnOrde red By: George Ash on 01-31-2021 TSH Qn 1.65 m[IU]/L 0.45-5.33 [facility] Lipid Panel Fastingon 2020 Cholesterol [Mass/Vol] 145 mg/dL Normal 0-199 [facility] Comment on above: Result Comment: ATP III Cholesterol classification is Desirable. Performed By: #### L IPDF #### [facility] [address] [place] [address] HDL Cholesterol Fasting 49 mg/dL Normal 40-59 [facility] Comment on above: Result Comment: ATP III [...] CHD Performed By: #### L IPDF #### [facility] [address] [place] [address] LDL Cholesterol (Calculated) Fasting 76 mg/dL Normal 0-129 [facility] Comment on above: Result Comment: ATP III LDL Classification is Optimal. Performed By: #### L IPDF #### [facility] [address] [place] [address] Triglycerides Fasting 98 mg/dL Normal 0-150 [facility] Comment on above: Result Comment: ATP III Triglycerides Classification is Normal. Performed By: #### L IPDF #### [facility] [address] [place] [address] Vitamin B12 and Folateon Cobalamin (Vitamin B12) [Mass/Vol] 417 pg/mL Normal 232-1245 [facility] Comment on above: Performed By: #### B 12FO #### [facility] [address] [place] [address] Folate 13.4 ng/mL Normal 7.3-26.1 [facility] Comment on above: Result Comment: As o f 15, the methodology has changed. Results from this methodology should not be compared with results from previous methodology. Performed By: #### B 12FO #### [facility] [address] [place] [address] Vitamin Don 08-20-2020 Vitamin D 33.1 ng/mL Normal 30.0-100.0 [facility] Comment on above: Result Comment: (30- 100 ng/mL) Optimum Level This assay accurately quantifies the sum of vitamin D3, 25-Hydroxy and vitamin D2, 25-Hyroxy. Performed By: #### V ITD #### [facility] [address] [place] [address] Thyroxine (T4) free [Mass/vo lume] in Serum or Plasmaon 08-16-2020 Free T4 [Mass/Vol] 0.79 ng/dL 0.61-1.12 [facility] Lipid Profileon 08-06-2020 Cholesterol [Mass/Vol] 132 mg/dL Normal <200 [facility] Comment on above: Result Comment: Cholesterol Guidelines: <200 Desirable 200-240 Borderline >240 Undesirable Performed By: #### L IPR #### [facility] [employer] [address] [place] [address] Interior Specialist: Joe Todd MD Cholesterol in HDL [Mass/Vol] 41 mg/dL Normal >40 [facility] Comment on above: Result Comment: HDL Guidelines: <40 Undesirable 40-59 Borderline >59 Desirable Performed By: #### L IPR #### [facility] [address] [place] [address] Interior Specialist: Joe Todd MD Cholesterol in LDL [Mass/Vol] 72 mg/dL Normal 0-130 [facility] Comment on above: Result Comment: LDL Guidelines: <100 Desirable 100-129 Near to/above Desirable 130-159 Borderline >159 Undesirable Direct (measured) LDL and calculated LDL are not interchangeable tests. Performed By: #### L IPR #### [employer] [address] [place] [address] Interior Specialist: Joe Todd MD Cholesterol.total/Cho lesterol in HDL [Mass ratio] 3.2 {ratio} Normal <5 [facility] Comment on above: Performed By: #### L IPR #### [employer] [address] [place] [address] [phone] Interior Specialist: Joe Todd MD Triglyceride [Mass/Vol] 93 mg/dL Normal <150 [facility] Comment on above: Result Comment: Triglyceride Guidelines: <150 Desirable 150-199 Borderline 200-499 High >499 Very high Based on AHA Guidelines for fasting triglyceride, February 2012. Performed By: #### L IPR #### [facility] [address] [place], [place] [id number] Interior Specialist: Joe Todd MD Cholesterol in VLDL [Mass/Vol] NOT REPORTED Normal 06-12 [facility] Comment on above: Performed By: #### L IPR #### [facility] [employer] [address] [place] [address] Interior Specialist: Joe Todd MD Direct bilirubin measurement on 07-05-2020 Bilirubin.direct [Mass/Vol] 0.1 mg/dL 0.0-0.4 [facility] Serum or plasma non-glucuron idated bilirubin measurement (mass/volume)on 07-05-2020 Bilirubin.indirect [Mass/Vol] 0.8 mg/dL [facility] Laboratory - Hematology and Cell countson 05-24-2020 WBC (Bld) [#/Vol] 4.9 10*3/uL 4.5-11.0 [facility] Blood anisocytosis detection on 03-08-2020 Anisocytosis Ql (Bld) Slight [facility] No Panel Informationon 03-08 Platelet Estimate Normal Normal [facility] Platelet Morphology Comment Normal Normal [facility] RBC morphologyon 03-08-2020 RBC morphology finding Nom (Bld) N/A [facility] CARDIAC STRESS/REST (DILAN CARDIAL PERFUSION/MIBI)on 03-03-2020 [facility] CARDIAC STRESS/REST (MYOCARDIAL PERFUSION/MIBI) Patient Name: KIRILL ECHOLS STUDY: MYOCARDIAL PERFUSION STRESS TEST WITH LEXISCAN Performing facility: [facility], [address], [address], \[place] [address] [facility] Provider: Ema Oliveira DO, FACC PCP: Dr. B. Andrea Supervising provider: Tejal King MD, [facility] INDICATION: Chest Pain; HISTORY: Gender: M; Age: 54 y/o ; Height: 182.88 cm; Weight: 71.9570674 kg. HTN; Chest Pain; COPD; Quit smoking in 2020 years ago. COMPARISON: No comparison. ACCESSION NUMBER(S): [id number]; [id number]; [id number] ORDERING CLINICIAN: LUKAS OLIVEIRA TECHNIQUE: ONE DAY [...] comparison. Electronically signed by: TEJAL KING MD [facility] CARDIAC STRESS/REST INJE CTIONon 03-03-2020 [facility] CARDIAC STRESS/REST INJECTION Patient Name: KIRILL ECHOLS STUDY: MYOCARDIAL PERFUSION STRESS TEST WITH LEXISCAN Performing facility: [facility], [address], [address], \[place] [id number] [facility] Provider: Ema Oliveira DO, [facility] PCP: Dr. Danni Andrea Supervising provider: Tejal King MD, [facility] INDICATION: Chest Pain; HISTORY: Gender: M; Age: 54 y/o ; Height: 182.88 cm; Weight: 71.8210881 kg. HTN; Chest Pain; COPD; Quit smoking in 2020 years ago. COMPARISON: No comparison. ACCESSION NUMBER(S): [id number]; [id number]; [id number] ORDERING CLINICIAN: LUKAS OLIVEIRA TECHNIQUE: ONE DAY [...] comparison. Electronically signed by: TEJAL KING MD [facility] PART 2 STRESS OR REST (N O CHARGE)on 03-03-2020 [facility] PART 2 STRESS OR REST (NO CHARGE) Patient Name: KIRILL ECHOLS STUDY: MYOCARDIAL PERFUSION STRESS TEST WITH LEXISCAN Performing facility: [facility], [address], [address], \[place] [address] [facility] Provider: Ema Oliveira DO, [facility] PCP: Dr. Danni Andrea Supervising provider: Tejal King MD, [facility] INDICATION: Chest Pain; HISTORY: Gender: M; Age: 54 y/o ; Height: 182.88 cm; Weight: 71.1811772 kg. HTN; Chest Pain; COPD; Quit smoking in 2020 years ago. COMPARISON: No comparison. ACCESSION NUMBER(S): [id number]; [id number]; [id number] ORDERING CLINICIAN: LUKAS OLIVEIRA TECHNIQUE: ONE DAY [...] comparison. Electronically signed by: TEJAL KING MD [facility] No Panel Informationon 03-02 Schistocytes Rare [facility] Target cellson 03-02-2020 Target cells LM Ql (Bld) Slight [facility] Basophil percentageon 2019 Eosinophils/100 WBC (Bld) 1 % 1-3 [facility] Blood polychromasia detectio n by light microscopyon 02-24-2020 Polychromasia LM Ql (Bld) [facility] - Hematology and Cell countson 02-24-2020 Band form neutrophils/100 WBC (Bld) 13 % 0-5 [facility] Lymphocytes/100 WBC Auto (Bl d)on 02-24-2020 Lymphocytes/100 WBC (Bld) 9 % 18-42 [facility] Monocyte %on 02-24-2020 Monocytes/100 WBC (Bld) 1 % 1-3 [facility] Monocytes/100 WBC Manual cnt (Bld)on 02-24-2020 Monocytes/100 WBC (Bld) 16 % 2-11 [facility] No Panel Informationon 02-23 Dohle Bodies Moderate [facility] Poikilocytosis Slight [facility] Ovalocyte detectionon 2019 Ovalocytes LM Ql (Bld) Slight [facility] Segmented neutrophils/100 WB C Manual cnt (Bld)on 02-24-2020 Segmented neutrophils/100 WBC (Bld) 61 % 50-70 [facility] Hypochromia detectionon 01-13 Hypochromia Ql (Bld) [facility] Macrocytes detectionon 01-19 Macrocytes Ql (Bld) Slight [facility] No Panel Informationon 01-19 Smudge Cells Few [facility] Red blood cell stomatocyte d etectionon 12-09-2019 Stomatocytes LM Ql (Bld) [facility] Respiratory specimen 2019 no mathieu coronavirus RNA detection by probe and target amplifion 11-21-2019 SARS-CoV-2 (COVID-19) RNA DEANA+probe Ql (Resp) Not detected Not Detected [facility] Comment on above: This test was develo ped and its performance characteristicsdetermined by [employer]. This test has not beenFDA cleared or [...] (not detected) result in this assay.Performed at: [facility] [id number] [employer] [facility] [place] [id number] Director: Antonio Chaney MD, Phone: [phone] Basophils/100 WBC Auto (Bld) on 11-18-2019 Basophils/100 WBC (Bld) 1 % 0-2 [facility] Amylaseon 04-28-2018 Amylase enzyme act/vol 130 U/L High 30-110 [facility] Comment on above: Performed By: #### C BCDIF, PT, GBCHEM, GBTSH, LIPA, MG, GBHCV, HAVIGM, HBCAB, HBSAG, RPR ####[facility] [id number] [place], [place] [phone] GGTon 04-28-2018 Gamma glutamyl transferase [Enzymatic activity/volume] in Serum or Plasma 426 U/L High 15-73 [facility] Comment on above: Performed By: #### C BCDIF, PT, GBCHEM, GBTSH, LIPA, MG, GBHCV, HAVIGM, HBCAB, HBSAG, RPR ####[facility] [id number] [place], [place] [phone] Hepatic Function Pnlon 04-28 Albumin mass conc 4.2 g/dL Normal 3.5-5.0 [facility] Comment on above: Performed By: #### C BCDIF, PT, GBCHEM, GBTSH, LIPA, MG, GBHCV, HAVIGM, HBCAB, HBSAG, RPR ####[facility] [id number] [place], [place] [phone] Alkaline Phos 96 U/L Normal 38-125 [facility] Comment on above: Performed By: #### C BCDIF, PT, GBCHEM, GBTSH, LIPA, MG, GBHCV, HAVIGM, HBCAB, HBSAG, RPR ####[facility] [id number] [place], [place] [phone] ALT enzyme act/vol 60 U/L Normal 21-72 [facility] Comment on above: Performed By: #### C BCDIF, PT, GBCHEM, GBTSH, LIPA, MG, GBHCV, HAVIGM, HBCAB, HBSAG, RPR ####[facility] [id number] [place], [place] [phone] AST enzyme act/vol 65 U/L High 17-59 [facility] Comment on above: Performed By: #### C BCDIF, PT, GBCHEM, GBTSH, LIPA, MG, GBHCV, HAVIGM, HBCAB, HBSAG, RPR ####[facility] [id number] [place], [place] [phone] Bilirubin Ql (U) 0.3 mg/dL Normal 0.2-1.3 [facility] Comment on above: Performed By: #### C BCDIF, PT, GBCHEM, GBTSH, LIPA, MG, GBHCV, HAVIGM, HBCAB, HBSAG, RPR ####[facility] [id number] [place], [place] [phone] Bilirubin.direct mass conc 0.2 mg/dL Normal 0.0-0.4 [facility] Comment on above: Performed By: #### C BCDIF, PT, GBCHEM, GBTSH, LIPA, MG, GBHCV, HAVIGM, HBCAB, HBSAG, RPR ####[facility] [id number] [facility] [place] [phone] Protein mass conc 7.3 g/dL Normal 6.2-8.2 [facility] Comment on above: Performed By: #### C BCDIF, PT, GBCHEM, GBTSH, LIPA, MG, GBHCV, HAVIGM, HBCAB, HBSAG, RPR ####[facility] [id number] [place], [place] [phone] Lipaseon 04-28-2018 Lipase enzyme act/vol 941 U/L High 23-300 [facility] Comment on above: Performed By: #### C BCDIF, PT, GBCHEM, GBTSH, LIPA, MG, GBHCV, HAVIGM, HBCAB, HBSAG, RPR ####[facility] [id number] [place], [place] [phone] Phenobarbitalon 04-26-2018 Phenobarbital mass conc ug/mL Low 15.0-40.0 [facility] Comment on above: Performed By: #### C BCDIF, PT, GBCHEM, GBTSH, LIPA, MG, GBHCV, HAVIGM, HBCAB, HBSAG, RPR ####[facility] [id number] [place], [place] [phone] RPRon 04-25-2018 Reagin Ab RPR Ql (S) Nonreactive Normal Nonreactive [facility] Comment on above: Performed By: #### C BCDIF, PT, GBCHEM, GBTSH, LIPA, MG, GBHCV, HAVIGM, HBCAB, HBSAG, RPR ####[facility] [id number] [facility], [place] [phone] Urinalysison 04-25-2018 Bilirubin Negative Normal Negative [facility] Comment on above: Performed By: #### C BCDIF, PT, GBCHEM, GBTSH, LIPA, MG, GBHCV, HAVIGM, HBCAB, HBSAG, RPR ####[facility] [id number] [facility], [place] [phone] Cast SEE NOTES Normal 0 [facility] Comment on above: Result Comment: >20H yaline Cast Performed By: #### C BCDIF, PT, GBCHEM, GBTSH, LIPA, MG, GBHCV, HAVIGM, HBCAB, HBSAG, RPR ####[facility] [id number] [place] [facility] [place] [phone] Clarity Nom (U) Cloudy Critically abnormal Clear [facility] Comment on above: Performed By: #### C BCDIF, PT, GBCHEM, GBTSH, LIPA, MG, GBHCV, HAVIGM, HBCAB, HBSAG, RPR ####[facility] [id number] [facility], [place] [phone] Color Nom (U) Taylor Critically abnormal Yellow [facility] Comment on above: Performed By: #### C BCDIF, PT, GBCHEM, GBTSH, LIPA, MG, GBHCV, HAVIGM, HBCAB, HBSAG, RPR ####[facility] Pat82066 [facility], [place] [phone] Crystals SEE NOTES Normal 0 [facility] Comment on above: Result Comment: FewA morphous Performed By: #### C BCDIF, PT, GBCHEM, GBTSH, LIPA, MG, GBHCV, HAVIGM, HBCAB, HBSAG, RPR ####[facility] [id number] [facility], [place] [phone] Epithelial Cells Few Normal [facility] Comment on above: Result Comment: Squa mous Epithelial Cells Performed By: #### C BCDIF, PT, GBCHEM, GBTSH, LIPA, MG, GBHCV, HAVIGM, HBCAB, HBSAG, RPR ####[facility] [id number] [place] [address], [place] [phone] Glucose Negative Normal Negative [facility] Comment on above: Performed By: #### C BCDIF, PT, GBCHEM, GBTSH, LIPA, MG, GBHCV, HAVIGM, HBCAB, HBSAG, RPR ####[facility] [id number] [facility], [place] [phone] Hemoglobin/Blood Negative Normal Negative [facility] Comment on above: Performed By: #### C BCDIF, PT, GBCHEM, GBTSH, LIPA, MG, GBHCV, HAVIGM, HBCAB, HBSAG, RPR ####[facility] Clinical [id number] [facility], [phone] INR Coag RelTime (Bld) 0-3 Normal 0-3 [facility] Comment on above: Performed By: #### C BCDIF, PT, GBCHEM, GBTSH, LIPA, MG, GBHCV, HAVIGM, HBCAB, HBSAG, RPR ####[facility] [id number] [facility], [place] [phone] Ketone Trace Critically abnormal Negative [facility] Comment on above: Performed By: #### C BCDIF, PT, GBCHEM, GBTSH, LIPA, MG, GBHCV, HAVIGM, HBCAB, HBSAG, RPR ####[facility] [id number] [place], [place] [phone] Leukest Negative Normal Negative [facility] Comment on above: Performed By: #### C BCDIF, PT, GBCHEM, GBTSH, LIPA, MG, GBHCV, HAVIGM, HBCAB, HBSAG, RPR ####[facility] [id number] [place] [phone] Nitrites Negative Normal Negative [facility] Comment on above: Performed By: #### C BCDIF, PT, GBCHEM, GBTSH, LIPA, MG, GBHCV, HAVIGM, HBCAB, HBSAG, RPR ####[facility] [id number] [facility], [place] [phone] pH Test strip (U) 5.0 [pH] Normal 5-7 [facility] Comment on above: Performed By: #### C BCDIF, PT, GBCHEM, GBTSH, LIPA, MG, GBHCV, HAVIGM, HBCAB, HBSAG, RPR ####[facility] [id number] [place], [place] [phone] Protein mass conc 100 mg/dl Critically abnormal Negative [facility] Comment on above: Performed By: #### C BCDIF, PT, GBCHEM, GBTSH, LIPA, MG, GBHCV, HAVIGM, HBCAB, HBSAG, RPR ####[facility] [id number] [facility], [place] [phone] Urine Alpesh Comment Many Normal [facility] Comment on above: Result Comment: MUCO US Performed By: #### C BCDIF, PT, GBCHEM, GBTSH, LIPA, MG, GBHCV, HAVIGM, HBCAB, HBSAG, RPR ####[facility] [id number] [place], [place] [phone] Urine Spec [place] 1.025 Normal 1.005-1.030 [facility] Comment on above: Performed By: #### C BCDIF, PT, GBCHEM, GBTSH, LIPA, MG, GBHCV, HAVIGM, HBCAB, HBSAG, RPR ####[facility] [id number] [place], [place] [phone] Urobilinogen 2.0 mg/dl High 0.0-1.0 [facility] Comment on above: Performed By: #### C BCDIF, PT, GBCHEM, GBTSH, LIPA, MG, GBHCV, HAVIGM, HBCAB, HBSAG, RPR ####[facility] [id number] [place], [place] [phone] WBC 0-5 Normal 0-5 [facility] Comment on above: Performed By: #### C BCDIF, PT, GBCHEM, GBTSH, LIPA, MG, GBHCV, HAVIGM, HBCAB, HBSAG, RPR ####[facility] [id number] [place], [place] [phone] CBCDIFon 04-24-2018 Abs Baso 0.02 k/uL Normal 0-0.2 [facility] Comment on above: Performed By: #### C BCDIF, PT, GBCHEM, GBTSH, LIPA, MG, GBHCV, HAVIGM, HBCAB, HBSAG, RPR ####[facility] [id number] [facility], [place] [phone] Abs [place] 1.23 k/uL High 0-0.8 [facility] Comment on above: Performed By: #### C BCDIF, PT, GBCHEM, GBTSH, LIPA, MG, GBHCV, HAVIGM, HBCAB, HBSAG, RPR ####[facility] [id number] [facility], [place] [phone] Abs Neut 7.41 k/uL Normal 1.8-7.7 [facility] Comment on above: Performed By: #### C BCDIF, PT, GBCHEM, GBTSH, LIPA, MG, GBHCV, HAVIGM, HBCAB, HBSAG, RPR ####[facility] [id number] [facility], [place] [phone] Basophils/100 WBC Auto (Bld) 0.2 % Normal 0-1 [facility] Comment on above: Performed By: #### C BCDIF, PT, GBCHEM, GBTSH, LIPA, MG, GBHCV, HAVIGM, HBCAB, HBSAG, RPR ####[facility] [id number] [place], [place] [phone] Eosinophils Auto #/vol (Bld) 0.38 10*3/uL Normal 0-0.4 [facility] Comment on above: Performed By: #### C BCDIF, PT, GBCHEM, GBTSH, LIPA, MG, GBHCV, HAVIGM, HBCAB, HBSAG, RPR ####[facility] [id number] [facility], [place] [phone] Eosinophils/100 WBC Auto (Bld) 3.3 % Normal 0-4 [facility] Comment on above: Performed By: #### C BCDIF, PT, GBCHEM, GBTSH, LIPA, MG, GBHCV, HAVIGM, HBCAB, HBSAG, RPR ####[facility] Clinical [id number] [place] [phone] Erythrocyte distribution width Auto Ratio (RBC) 14.6 % High 11.5-14.5 [facility] Comment on above: Performed By: #### C BCDIF, PT, GBCHEM, GBTSH, LIPA, MG, GBHCV, HAVIGM, HBCAB, HBSAG, RPR ####[facility] [id number] [place] [phone] Hematocrit Auto Volume Fraction (Bld) 46.2 % Normal 41.0-53.0 [facility] Comment on above: Performed By: #### C BCDIF, PT, GBCHEM, GBTSH, LIPA, MG, GBHCV, HAVIGM, HBCAB, HBSAG, RPR ####[facility] [id number] [place] [phone] Hemoglobin mass conc (Bld) 16.2 g/dL Normal 13.5-17.5 [facility] Comment on above: Performed By: #### C BCDIF, PT, GBCHEM, GBTSH, LIPA, MG, GBHCV, HAVIGM, HBCAB, HBSAG, RPR ####[facility] [id number] [place] [phone] Immature Gran 0.30 % Normal 0-1.9 [facility] Comment on above: Performed By: #### C BCDIF, PT, GBCHEM, GBTSH, LIPA, MG, GBHCV, HAVIGM, HBCAB, HBSAG, RPR ####[facility] [id number] [place], [place] [phone] Lymphocytes Auto #/vol (Bld) 2.56 10*3/uL Normal 1.0-4.0 [facility] Comment on above: Performed By: #### C BCDIF, PT, GBCHEM, GBTSH, LIPA, MG, GBHCV, HAVIGM, HBCAB, HBSAG, RPR ####[facility] Clinical [id number] [place], [place] [phone] Lymphocytes/100 WBC Auto (Bld) 22.0 % Normal 22-44 [facility] Comment on above: Performed By: #### C BCDIF, PT, GBCHEM, GBTSH, LIPA, MG, GBHCV, HAVIGM, HBCAB, HBSAG, RPR ####[facility] Clinical [id number] [facility], [place] [phone] MCH Auto Entitic mass (RBC) 31.6 pG Normal 26-34 [facility] Comment on above: Performed By: #### C BCDIF, PT, GBCHEM, GBTSH, LIPA, MG, GBHCV, HAVIGM, HBCAB, HBSAG, RPR ####[facility] [id number] [place], [place] [phone] MCHC Auto mass conc (RBC) 35.1 g/dL Normal 31-37 [facility] Comment on above: Performed By: #### C BCDIF, PT, GBCHEM, GBTSH, LIPA, MG, GBHCV, HAVIGM, HBCAB, HBSAG, RPR ####[facility] Clinical [id number] [place], [place] [phone] MCV Auto Entitic volume (RBC) 90.1 fL Normal 80-100 [facility] Comment on above: Performed By: #### C BCDIF, PT, GBCHEM, GBTSH, LIPA, MG, GBHCV, HAVIGM, HBCAB, HBSAG, RPR ####[facility] [id number] [place], [place] [phone] Monocytes/100 WBC Auto (Bld) 10.6 % Normal 4-12 [facility] Comment on above: Performed By: #### C BCDIF, PT, GBCHEM, GBTSH, LIPA, MG, GBHCV, HAVIGM, HBCAB, HBSAG, RPR ####[facility] Clinical [id number] [place], [place] [phone] Neutrophils/100 WBC Auto (Bld) 63.6 % Normal 40-70 [facility] Comment on above: Performed By: #### C BCDIF, PT, GBCHEM, GBTSH, LIPA, MG, GBHCV, HAVIGM, HBCAB, HBSAG, RPR ####[facility] Clinical [id number] [facility], [place] [phone] NRBCs 0 /100 WBC Normal 0-0.9 [facility] Comment on above: Performed By: #### C BCDIF, PT, GBCHEM, GBTSH, LIPA, MG, GBHCV, HAVIGM, HBCAB, HBSAG, RPR ####[facility] [id number] [facility], [place] [phone] Platelets Auto #/vol (Bld) 188 10*3/uL Normal 150-450 [facility] Comment on above: Performed By: #### C BCDIF, PT, GBCHEM, GBTSH, LIPA, MG, GBHCV, HAVIGM, HBCAB, HBSAG, RPR ####[facility] [id number] [facility], [place] [phone] RBC Auto #/vol (Bld) 5.13 10*6/uL Normal 4.50-5.90 [facility] Comment on above: Performed By: #### C BCDIF, PT, GBCHEM, GBTSH, LIPA, MG, GBHCV, HAVIGM, HBCAB, HBSAG, RPR ####[facility] Clinical [id number] [facility], [place] [phone] WBC Auto #/vol (Bld) 11.63 10*3/uL High 4.5-11.0 [facility] Comment on above: Performed By: #### C BCDIF, PT, GBCHEM, GBTSH, LIPA, MG, GBHCV, HAVIGM, HBCAB, HBSAG, RPR ####[facility] Clinical [id number] [facility] CampusEd[facility]ard[facility], [place] [phone] [facility] Prof 2017 Albumin mass conc 5.0 g/dL Normal 3.5-5.0 [facility] Comment on above: Performed By: #### C BCDIF, PT, GBCHEM, GBTSH, LIPA, MG, GBHCV, HAVIGM, HBCAB, HBSAG, RPR ####[facility] [id number] [place], [place] [phone] Alkaline Phos 137 U/L High 38-125 [facility] Comment on above: Performed By: #### C BCDIF, PT, GBCHEM, GBTSH, LIPA, MG, GBHCV, HAVIGM, HBCAB, HBSAG, RPR ####[facility] [id number] [facility], [place] [phone] ALT enzyme act/vol 54 U/L Normal 21-72 [facility] Comment on above: Performed By: #### C BCDIF, PT, GBCHEM, GBTSH, LIPA, MG, GBHCV, HAVIGM, HBCAB, HBSAG, RPR ####[facility] [id number] [place], [place] [phone] Amylase enzyme act/vol 156 U/L High 30-110 [facility] Comment on above: Performed By: #### C BCDIF, PT, GBCHEM, GBTSH, LIPA, MG, GBHCV, HAVIGM, HBCAB, HBSAG, RPR ####[facility] Clinical [id number] [place], [place] [phone] Anion gap 3 molar conc 18 mmol/L High 0-15 [facility] Comment on above: Performed By: #### C BCDIF, PT, GBCHEM, GBTSH, LIPA, MG, GBHCV, HAVIGM, HBCAB, HBSAG, RPR ####[facility] [id number] [facility] [place] [phone] AST enzyme act/vol 102 U/L High 17-59 [facility] Comment on above: Performed By: #### C BCDIF, PT, GBCHEM, GBTSH, LIPA, MG, GBHCV, HAVIGM, HBCAB, HBSAG, RPR ####[facility] Clinical [id number] [facility], [place] [phone] Bilirubin Ql (U) 1.5 mg/dL High 0.2-1.3 [facility] Comment on above: Performed By: #### C BCDIF, PT, GBCHEM, GBTSH, LIPA, MG, GBHCV, HAVIGM, HBCAB, HBSAG, RPR ####[facility] [id number] [facility], [place] [phone] Calcium mass conc 10.0 mg/dL Normal 8.4-10.2 [facility] Comment on above: Performed By: #### C BCDIF, PT, GBCHEM, GBTSH, LIPA, MG, GBHCV, HAVIGM, HBCAB, HBSAG, RPR ####[facility] Clinical [id number] [place], [place] [phone] Chloride molar conc 91 mmol/L Low 98-107 [facility] Comment on above: Performed By: #### C BCDIF, PT, GBCHEM, GBTSH, LIPA, MG, GBHCV, HAVIGM, HBCAB, HBSAG, RPR ####[facility] [id number] [place], [place] [phone] Cholesterol mass conc 155 mg/dL Normal 100-199 [facility] Comment on above: Performed By: #### C BCDIF, PT, GBCHEM, GBTSH, LIPA, MG, GBHCV, HAVIGM, HBCAB, HBSAG, RPR ####[facility] Clinical [id number] [facility], [place] [phone] CO2 molar conc 27 mmol/L Normal 22-30 [facility] Comment on above: Performed By: #### C BCDIF, PT, GBCHEM, GBTSH, LIPA, MG, GBHCV, HAVIGM, HBCAB, HBSAG, RPR ####[facility] Clinical [id number] [facility], [place] [phone] Creatinine mass conc 1.47 mg/dL High 0.66-1.25 [facility] Comment on above: Performed By: #### C BCDIF, PT, GBCHEM, GBTSH, LIPA, MG, GBHCV, HAVIGM, HBCAB, HBSAG, RPR ####[facility] Clinical [id number] [place], [place] [phone] eGFR Amer >60 Normal >60 [facility] Comment on above: Result Comment: MDRD calculation used for eGFR results. Performed By: #### C BCDIF, PT, GBCHEM, GBTSH, LIPA, MG, GBHCV, HAVIGM, HBCAB, HBSAG, RPR ####[facility] Clinical [id number] [place], [place] [phone] eGFR non Am 53 mL/min/1.73 2 Low >60 [facility] Comment on above: Performed By: #### C BCDIF, PT, GBCHEM, GBTSH, LIPA, MG, GBHCV, HAVIGM, HBCAB, HBSAG, RPR ####[facility] Clinical [id number] [place], [place] [phone] Gamma glutamyl transferase [Enzymatic activity/volume] in Serum or Plasma 602 U/L High 15-73 [facility] Comment on above: Performed By: #### C BCDIF, PT, GBCHEM, GBTSH, LIPA, MG, GBHCV, HAVIGM, HBCAB, HBSAG, RPR ####[facility] Clinical [id number] [place], [place] [phone] Glucose mass conc 98 mg/dL Normal 74-106 [facility] Comment on above: Performed By: #### C BCDIF, PT, GBCHEM, GBTSH, LIPA, MG, GBHCV, HAVIGM, HBCAB, HBSAG, RPR ####[facility] Clinical [id number] [place], [place] [phone] LDH 550 U/L Normal 318-618 [facility] Comment on above: Performed By: #### C BCDIF, PT, GBCHEM, GBTSH, LIPA, MG, GBHCV, HAVIGM, HBCAB, HBSAG, RPR ####[facility] Clinical [id number] [facility], [place] [phone] Phosphate mass conc 3.9 mg/dL Normal 2.5-4.5 [facility] Comment on above: Performed By: #### C BCDIF, PT, GBCHEM, GBTSH, LIPA, MG, GBHCV, HAVIGM, HBCAB, HBSAG, RPR ####[facility] Clinical [id number] [place], [place] [phone] Potassium molar conc 3.7 mmol/L Normal 3.5-5.1 [facility] Comment on above: Performed By: #### C BCDIF, PT, GBCHEM, GBTSH, LIPA, MG, GBHCV, HAVIGM, HBCAB, HBSAG, RPR ####[facility] Clinical [id number] [place], [place] [phone] Protein mass conc 8.7 g/dL High 6.2-8.2 [facility] Comment on above: Performed By: #### C BCDIF, PT, GBCHEM, GBTSH, LIPA, MG, GBHCV, HAVIGM, HBCAB, HBSAG, RPR ####[facility] Clinical [id number] [place], [place] [phone] Sodium molar conc 132 mmol/L Low 137-145 [facility] Comment on above: Performed By: #### C BCDIF, PT, GBCHEM, GBTSH, LIPA, MG, GBHCV, HAVIGM, HBCAB, HBSAG, RPR ####[facility] Clinical [id number] [place], [place] [phone] Triglyceride mass conc 160 mg/dL High 35-150 [facility] Comment on above: Performed By: #### C BCDIF, PT, GBCHEM, GBTSH, LIPA, MG, GBHCV, HAVIGM, HBCAB, HBSAG, RPR ####[facility] Clinical [id number] [facility], [place] [phone] Urate mass conc 7.2 mg/dL Normal 3.5-8.5 [facility] Comment on above: Performed By: #### C BCDIF, PT, GBCHEM, GBTSH, LIPA, MG, GBHCV, HAVIGM, HBCAB, HBSAG, RPR ####[facility] [id number] [facility], [place] [phone] Urea nitrogen mass conc 15 mg/dL Normal 9-20 [facility] Comment on above: Performed By: #### C BCDIF, PT, GBCHEM, GBTSH, LIPA, MG, GBHCV, HAVIGM, HBCAB, HBSAG, RPR ####[facility] Clinical [id number] [facility], [place] [phone] [facility] Hep C Abon 018 [facility] Hep C Ab Nonreactive Normal Nonreactive [facility] Comment on above: Performed By: #### C BCDIF, PT, GBCHEM, GBTSH, LIPA, MG, GBHCV, HAVIGM, HBCAB, HBSAG, RPR ####[facility] Clinical [id number] [facility], [place] [phone] [facility] TSHon 04-24-2018 Thyrotropin Qn 3.280 uU/mL Normal 0.465-4.680 [facility] Comment on above: Performed By: #### C BCDIF, PT, GBCHEM, GBTSH, LIPA, MG, GBHCV, HAVIGM, HBCAB, HBSAG, RPR ####[facility] Clinical [id number] [facility] [place] [phone] Hep A IgM Antibodyon 018 Hep A IgM Antibody Nonreactive Normal Nonreactive [facility] Comment on above: Performed By: #### C BCDIF, PT, GBCHEM, GBTSH, LIPA, MG, GBHCV, HAVIGM, HBCAB, HBSAG, RPR ####[facility] Clinical [id number] [place], [place] [phone] Hep B Core Total Abon 2017 Hep B Core Total Ab Nonreactive Normal Nonreactive [facility] Comment on above: Performed By: #### C BCDIF, PT, GBCHEM, GBTSH, LIPA, MG, GBHCV, HAVIGM, HBCAB, HBSAG, RPR ####[facility] Clinical [id number] [facility] [phone] Hep B Surf Antigenon 018 Hep B Surf Antigen Nonreactive Normal Nonreactive [facility] Comment on above: Performed By: #### C BCDIF, PT, GBCHEM, GBTSH, LIPA, MG, GBHCV, HAVIGM, HBCAB, HBSAG, RPR ####[facility] [id number] [facility], [place] [phone] Lipaseon 04-24-2018 Lipase enzyme act/vol 1540 U/L High 23-300 [facility] Comment on above: Performed By: #### C BCDIF, PT, GBCHEM, GBTSH, LIPA, MG, GBHCV, HAVIGM, HBCAB, HBSAG, RPR ####[facility] [id number] [facility], [place] [phone] Magnesiumon 04-24-2018 Magnesium mass conc 2.0 mg/dL Normal 1.3-2.3 [facility] Comment on above: Performed By: #### C BCDIF, PT, GBCHEM, GBTSH, LIPA, MG, GBHCV, HAVIGM, HBCAB, HBSAG, RPR ####[facility] Clinical [id number] [facility], [place] [phone] Protimeon 04-24-2018 INR Coag RelTime (Bld) 1.0 {INR} Normal 0.6-1.1 [facility] Comment on above: Result Comment: The PT/INR [...] GBHCV, HAVIGM, HBCAB, HBSAG, RPR ####[facility] [id number] [place], [place] [phone] PT Sec 12.3 sec Normal 11.8-14.1 [facility] Comment on above: Performed By: #### C BCDIF, PT, GBCHEM, GBTSH, LIPA, MG, GBHCV, HAVIGM, HBCAB, HBSAG, RPR ####[facility] [id number] [place], [place] [phone] Coding Summary.on 10-29-2017 Coding Summary. CODING DATE: 018 FINAL [facility] STATUS: Home (Routine DC) PAYOR: Commercial Insurance APC DESCRIPTION 5311 Level 1 Lower GI Procedures ADMIT DX: REASON FOR VISIT DX: K62.5 Hemorrhage of anus and rectum FINAL DX: PRINCIPAL: K62.5 Hemorrhage of anus and rectum SECONDARY: K64.8 Other hemorrhoids R19.7 Diarrhea, unspecified R63.4 Abnormal weight loss F10.10 Alcohol abuse, uncomplicated Z87.19 Personal history of other diseases of the digestive system Z79.82 [facility]CI (current) use of aspirin F17.210 Nicotine dependence, cigarettes, uncomplicated PYMT PROC APC STAT DESCRIPTION DOCTOR NAME DATE 19249 4891 T Sigmoidoscopy, flexible; Nilesh Schulte MD 10/24/2017 diagnostic, including collection of specimen(s) by brushing or washing, when performed (separate procedure) 59348 Anesthesia for lower Nilesh Schulte MD 10/24/2017 intestinal endoscopic procedures, endoscope introduced distal to duodenum; not otherwise specified NOTE: The code number assigned matches the documented diagnosis and / or procedure in the patient's chart. However, the narrative phrase printed from the coding software may appear abbreviated, or result in slightly different terminology. Coded By: Joyce Barney Date Saved: 10/29/2017 09:43 am Normal [facility] Main OR Intraoperative Recor don 10-25-2017 Main OR Intraoperative Record IntraOp Document Type FT Summary Primary Physician: Nilesh Schulte MD Finalized Date/Time: 10/25/17 11:57:16 Pt. Name: KIRILL ECHOLS/Sex: 1965 Male Med Rec #: [id number] Physician: Nilesh Schulte MD Financial #: [id number] Pt. Type: O Room/Bed: / Admit/Disch: 10/24/17 [...] Performed Scrub - Other Surgeon - Primary Reference Investigator - Primary Time In 10/24/17 13:16:00 10/24/17 13:16:00 10/24/17 13:16:00 Time Out 10/24/17 13:32:00 10/24/17 13:32:00 10/24/17 13:32:00 Procedure SIGMOIDOSCOPY(.) SIGMOIDOSCOPY(.) SIGMOIDOSCOPY(.) Comments help in room Last Modified By: Zhao GIBSON, Dana Churchill RN, Dana Churchill RN, Dana 10/24/17 13:33:50 10/24/17 13:33:50 10/24/17 13:33:50 Entry 4 Entry 5 Case Attendee Lisset Chambers CST, Karen Role Performed Anesthesiologist Scrub - Primary Local Truck Driver Time In 10/24/17 13:16:00 10/24/17 13:16:00 Time [...] (If Applicable) PreOp Antibiotic No Time Out Staecy Hayes Salam Given Nilesh Cuevas MD, Workman [...] and tissue Entry 1 Skin Integrity Intact, [place], Warm, and Skin Abnormality No Dry Outcomes [...] RN Patient Status Stable Skin. Condition Intact, [place], Warm, and Dry Airway Maintenance Oxygen in Use? No Airway Device N/A Outcomes Met? Yes Last Modified By: Dana Churchill RN 10/24/17 10:56:46 Post-Care Text: The patient is free from signs and symptoms of injury related to transfer/transport General Comments: REPORT GIVEN TO METER RECORD CLERK/ AW .net architect Administration FT Pre-Care Text: Verifies allergies, administers prescribed medications and solutions, administers prescribed antibiotic therapy and immunizing agents as ordered, evaluates response to medications Administers prescribed medications and solutions Entry 1 Expiration Date Yes Outcomes Met? Yes Verified Last Modified By: Dana Churchill RN 10/24/17 10:56:32 Post-Care Text: The patient received appropriate medication(s) safely administered during the perioperative period For [facility] please see scanned medication reconcilliation form for medications used at the field during the procedure. Case Comments Finalized By: Adilai Bhatia CST Document Signatures Signed By: Dana Churchill RN 10/24/17 13:34 Dana Churchill RN 10/24/17 13:33 Adilia Bhatia CST 10/25/17 11:57 Normal [facility] History and Physicalon 10-24 History and Physical Date: 10/10/2017 2:4 5 PMPatient Name: Kirill Cao #: [id number]: MaleDOB (age): 1965 (52)Provider: MODE Gordonmarvin Physician: Mundo Vás[place] [address] (phone) (phone) (fax)Chief Complaint: Dr brown for Abdominal pain and pancreatitisHistory of Present Illness:52 years old -[place] male, was last seen in December 2015 [...] vomiting, weight loss.Printed on 10/19/2017 Kirill Echols, 57600, 1965 Page 1 of 4Printed on 10/19/2017 Kirill Echols, 47882, 1965Genitourinary: Denies dark urine, decrease in urine flow, dysuria, frequent urinary infections, frequent urination,hematuria, impotence, nocturia, urethral discharge or incontinence, sexual difficulty, sexual transmitteddiseases, kidney disease, kidney stones, pain with urination.Respiratory: Denies asthma, cough, dyspnea, excessive sputum, hemoptisis, shortness of breath with exercise,wheezing, coughing up blood.Vital Signs:BP(mmHg)Pulse(ppm) Rhythm Weight (lbs/oz) Height (ft/in) BMI Resp/min Lbsb480/79 91 Regular 145 / 6 / 19.13 [...] insufficiency, we will get old records from [place] to evaluatefor recent computed tomography scan, consider repeating EGD and colonoscopy if still negativeAlcohol abuse, advised to stop alcohol completelyPlan: Flexible Sigmoidoscopy will be performed at [facility].Labs Ordered: CBCLabs Ordered: Chem 6 (BUN, Creatinine, LYTES)Labs Ordered: Hepatic Panel (ALP, T/Dbil, Alb, AST, ALT, TP A/G Ratio)Stool Ordered: Fecal ElastaseObtain all old recordsRisk & Medical Necessity: Diagnosis and management options are Minimal. The amount of data reviewed and/orordered is Minimal/None. The level of risk is Minimal.Printed on 10/19/2017 Kirill Onesimo 29809, 1965 Page 2 of 4Printed on 10/19/2017 Kirill Onesimo 32855, 1965Nilesh Schulte MD Kirill Onesimo 91495, 1965 Page 3 of 4Printed on 10/19/2017 Kirill Echols 73557, 1965Printed on 10/19/2017 Kirill Echols 67114, 1965 Page 4 of 4Printed on 10/19/2017 Kirill Echols 57438, 1965no change Normal [facility] Comment on above: Result Comment: Elec tronically Signed By: Nilesh Schulte MD\.br\Date and Time Signed: 10/24/17 13:25 EDT Inpatient Patient Summaryon 10-24-2017 [facility] INFORMATION Name: KIRILL ECHOLS PHYSICIANS Admitting Physician: Jerson Schulte MDttending Physician: Nilesh Schulte MD PCP: Lucie ANDREA MD Diagnosis: Internal hemorrhoids Comment: PATIENT EDUCATION INFORMATIONInstructions: Flexible Sigmoidoscopy, Care AfterMedication Leaflets:Follow up:With: Address: When: Nilesh Christianarina [facility], [address] [place] [address] Business (1) Comments: Keep scheduled appointment Call for any problems. Call for severe abdominal pain MEDICATION LISTComment: Normal [facility] Main OR PACU I Recordon 10-12 Main OR PACU I Record PACU Phase I Docum ent Type FT Summary Primary Physician: Nilesh Schulte MD Finalized Date/Time: 10/24/17 14:10:53 Pt. Name: KIRLIL ECHOLS/Sex: 1965 Male Med Rec #: [id number] Physician: Nilesh Schulte MD Financial #: [id number] Pt. Type: O Room/Bed: / Admit/Disch: 10/24/17 [...] Yes Last Modified By: Sandeep GIBSON, Cherry Mosuqeda 10/24/17 14:10:25 Post-Care Text: The patient demonstrates [...] By: Cherry Hopkins RN 10/24/17 14:10 Normal [facility] Main OR Preoperative Recordo n 10-24-2017 Main OR Preoperative Record Holding Area Document Type FT Summary Primary Physician: Nilesh Schulte MD Finalized Date/Time: 10/24/17 12:22:15 Pt. Name: KIRILL ECHOLS/Sex: 1965 Male Med Rec #: [id number] Physician: Nilesh Schulte MD Financial #: [id number] Pt. Type: O Room/Bed: / Admit/Disch: 10/24/17 [...] By: Nikky David RN 10/24/17 12:22 Normal [facility] Patient Education - Texton 0 10-24-2017 Patient [...] had a biopsy.HOME CARE INSTRUCTIONS? Only take pydi-gmq-ogexjdb or prescription medicines for pain, fever, or [...] 05/05/2014 Document Reviewed: 05/05/2014ExitCare? Patient Information ?2015 [employer]. This information is not intended to replace advice given to you by your health care provider. Make sure you discuss any questions you have with your health care provider. [facility] Progress Note-Physicianon Progress Note-Physician Patient: KIRILL ECHOLS [...] be discharged from PACU when criteria met. [facility] Comment on above: Result Comment: Elec [...] No qualifying data available. Condition: Stable. Plan [place] [employer] Anesthesiologists (ASA) physical status classification: Class II. Anesthetic Preoperative Plan Anesthesia: General. , Monitored anesthesia care. Anesthetic plan, risks, benefits, and alternatives discussed with the patient and/or family. Patient verbalized understanding. Risks, benefits, alternatives discussed. Questions answered. . Normal [facility] Comment on above: Result Comment: Elec tronically Signed By: Cuba Harrington DO\Date and Time Signed: 10/24/17 12:38 EDT Vital Signs Date Time Vital Sign Value Performing Clinician Facility 06-29-2023 10:54-0500 Body temperature 97.9 [degF] MD Rylan Andrea Work Phone: [facility] 06-29-2023 10:54-0500 Body weight 69.85 kg MD Rylan Andrea Work Phone: [facility] 06-29-2023 10:54-0500 Diastolic blood pressure 88 mm[Hg] MD Rylan Andrea Work Phone: [facility] 06-29-2023 10:54-0500 Heart rate 88 /min MD Rylan Andrea Work Phone: [facility] 06-29-2023 10:54-0500 Respiratory rate 20 /min MD Rylan Andrea Work Phone: [facility] 06-29-2023 10:54-0500 SaO2% (BldA) [Mass fraction] 97 % MD Rylan Andrea Work Phone: [facility] 06-29-2023 10:54-0500 Systolic blood pressure 140 mm[Hg] MD Rylan Andrea Work Phone: [facility] 12-25-2022 11:05-0400 Body temperature 97.7 [degF] MD Rylan Andrea Work Phone: [facility] 12-25-2022 11:05-0400 Body weight 66.95 kg MD Rylan Andrea Work Phone: [facility] 12-25-2022 11:05-0400 Diastolic blood pressure 85 mm[Hg] MD Rylan Andrea Work Phone: [facility] 12-25-2022 11:05-0400 Heart rate 94 /min MD Rylan Andrea Work Phone: [facility] 12-25-2022 11:05-0400 Respiratory rate 18 /min MD Rylan Andrea Work Phone: [facility] 12-25-2022 11:05-0400 SaO2% (BldA) [Mass fraction] 97 % MD Rylan Andrea Work Phone: [facility] 12-25-2022 11:05-0400 Systolic blood pressure 136 mm[Hg] MD Rylan Andrea Work Phone: [facility] 11-01-2022 10:41-0400 Body temperature 97.6 [degF] MD Rylan Andrea Work Phone: [facility] 11-01-2022 10:41-0400 Body weight 68.26 kg MD Rylan Andrea Work Phone: [facility] 11-01-2022 10:41-0400 Diastolic blood pressure 82 mm[Hg] MD Rylan Andrea Work Phone: [facility] 11-01-2022 10:41-0400 Heart rate 103 /min MD Rylan Andrea Work Phone: [facility] 11-01-2022 10:41-0400 Respiratory rate 18 /min MD Rylan Andrea Work Phone: [facility] 11-01-2022 10:41-0400 SaO2% (BldA) [Mass fraction] 99 % MD Rylan Andera Work Phone: [facility] 11-01-2022 10:41-0400 Systolic blood pressure 121 mm[Hg] MD Rylan Andrea Work Phone: [facility] 10-26-2022 12:05-0400 Body height 182.88 cm MD Rylan Andrea Work Phone: [facility] 10-26-2022 12:05-0400 Body temperature 97.6 [degF] MD Rylan Andrea Work Phone: [facility] 10-26-2022 12:05-0400 Body weight 69 kg MD Rylan Andrea Work Phone: [facility] 10-26-2022 12:05-0400 Diastolic blood pressure 77 mm[Hg] MD Rylan Andrea Work Phone: [facility] 10-26-2022 12:05-0400 Heart rate 100 /min MD Rylan Andrea Work Phone: [facility] 10-26-2022 12:05-0400 Respiratory rate 20 /min MD Rylan Andrea Work Phone: [facility] 10-26-2022 12:05-0400 SaO2% (BldA) [Mass fraction] 98 % MD Rylan Andrea Work Phone: [facility] 10-26-2022 12:05-0400 Systolic blood pressure 120 mm[Hg] MD Rylan Andrea Work Phone: [facility] 09-19-2022 09:33-0400 Body weight 70.39 kg MD Rylan Andrea Work Phone: [facility] 09-19-2022 09:33-0400 Diastolic blood pressure 85 mm[Hg] MD Rylan Andrea Work Phone: [facility] 09-19-2022 09:33-0400 Heart rate 85 /min MD Rylan Andrea Work Phone: [facility] 09-19-2022 09:33-0400 Respiratory rate 20 /min MD Rylan Andrea Work Phone: [facility] 09-19-2022 09:33-0400 SaO2% (BldA) [Mass fraction] 97 % MD Rylan Andrea Work Phone: [facility] 09-19-2022 09:33-0400 Systolic blood pressure 128 mm[Hg] MD Rylan Andrea Work Phone: [facility] 09-04-2022 11:26-0400 Body temperature 98.6 [degF] MD Rylan Andrea Work Phone: [facility] 06-22-2022 13:07-0500 Body height 182.88 cm MD Rylan Andrea Work Phone: [facility] 06-22-2022 13:07-0500 Body temperature 98 [degF] MD Rylan Andrea Work Phone: [facility] 06-22-2022 13:07-0500 Body weight 73.2 kg MD Rylan Andrea Work Phone: [facility] 06-22-2022 13:07-0500 Diastolic blood pressure 88 mm[Hg] MD Rylan Andrea Work Phone: [facility] 06-22-2022 13:07-0500 Heart rate 112 /min MD Rylan Andrea Work Phone: [facility] 06-22-2022 13:07-0500 Respiratory rate 20 /min MD Rylan Andrea Work Phone: [facility] 06-22-2022 13:07-0500 SaO2% (BldA) [Mass fraction] 99 % MD Rylan Andrea Work Phone: [facility] 06-22-2022 13:07-0500 Systolic blood pressure 137 mm[Hg] MD Rylan Andrea Work Phone: [facility] 06-17-2022 12:00-0500 Body temperature 98.1 [degF] MD Rylan Andrea Work Phone: [facility] 06-17-2022 12:00-0500 Diastolic blood pressure 91 mm[Hg] MD Rylan Andrea Work Phone: [facility] 06-17-2022 12:00-0500 Heart rate 94 /min MD Rylan Andrea Work Phone: [facility] 06-17-2022 12:00-0500 Respiratory rate 20 /min MD Rylan Andrea Work Phone: [facility] 06-17-2022 12:00-0500 SaO2% (BldA) [Mass fraction] 97 % MD Rylan Andrea Work Phone: [facility] 06-17-2022 12:00-0500 Systolic blood pressure 142 mm[Hg] MD Rylan Andrea Work Phone: [facility] 06-16-2022 09:51-0500 Body height 182.88 cm MD Rylan Andrea Work Phone: [facility] 06-16-2022 09:51-0500 Body mass index (BMI) [Ratio] 20.2 kg/m2 MD Rylan Andrea Work Phone: [facility] 06-16-2022 09:51-0500 Body weight 67.9 kg MD Rylan Andrea Work Phone: [facility] 06-15-2022 12:00-0500 Body height 185.42 cm Rachid Chase Other [employer] Other 06-15-2022 12:00-0500 Body mass index (BMI) [Ratio] 19.63 kg/m2 Rachid Chase Other [employer] Other 06-15-2022 12:00-0500 Body temperature 97 [degF] Rachid Chase Other [employer] Other 06-15-2022 12:00-0500 Body weight 67.5 kg Rachid Chase Other [employer] Other 06-15-2022 12:00-0500 Diastolic blood pressure 82 mm[Hg] Rachid Chase Other [employer] Other 06-15-2022 12:00-0500 Respiratory rate 20 /min Rachid Chase Other [employer] Other 06-15-2022 12:00-0500 SaO2% (BldA) [Mass fraction] 98 % Rachid Chase Other [employer] Other 06-15-2022 12:00-0500 Systolic blood pressure 114 mm[Hg] Celsoal Chaban Other [employer] Other 05-31-2022 15:30-0500 Body height 185.42 cm Rachid Blandban Other [employer] Other 05-31-2022 15:30-0500 Body mass index (BMI) [Ratio] 19.92 kg/m2 Rachid Blandban Other [employer] Other 05-31-2022 15:30-0500 Body temperature 97.6 [degF] Rachid Blandban Other [employer] Other 05-31-2022 15:30-0500 Body weight 68.49 kg Rachid Blandban Other [employer] Other 05-31-2022 15:30-0500 Diastolic blood pressure 80 mm[Hg] Rachid Chaban Other [employer] Other 05-31-2022 15:30-0500 Respiratory rate 20 /min Rachid Blandban Other [employer] Other 05-31-2022 15:30-0500 SaO2% (BldA) [Mass fraction] 98 % Rachid Blandban Other [employer] Other 05-31-2022 15:30-0500 Systolic blood pressure 122 mm[Hg] Rachid Chaban Other [employer] Other 04-21-2022 09:50-0500 Diastolic blood pressure 74 mm[Hg] MD Rylan Andrea Work Phone: [facility] 04-21-2022 09:50-0500 Heart rate 80 /min MD Rylan Andrea Work Phone: [facility] 04-21-2022 09:50-0500 Respiratory rate 18 /min MD Rylan Andrea Work Phone: [facility] 04-21-2022 09:50-0500 SaO2% (BldA) [Mass fraction] 99 % MD Rylan Andrea Work Phone: [facility] 04-21-2022 09:50-0500 Systolic blood pressure 111 mm[Hg] MD Rylan Andrea Work Phone: [facility] 04-21-2022 08:21-0500 Body height 182.88 cm MD Rylan Andrea Work Phone: [facility] 04-21-2022 08:21-0500 Body weight 70.3 kg MD Rylan Andrea Work Phone: [facility] 04-18-2022 13:59-0500 Diastolic blood pressure 82 mm[Hg] MD Rylan Andrea Work Phone: [facility] 04-18-2022 13:59-0500 Heart rate 99 /min MD Rylan Andrea Work Phone: [facility] 04-18-2022 13:59-0500 Respiratory rate 20 /min MD Rylan Andrea Work Phone: [facility] 04-18-2022 13:59-0500 SaO2% (BldA) [Mass fraction] 99 % MD Rylan Andrea Work Phone: [facility] 04-18-2022 13:59-0500 Systolic blood pressure 117 mm[Hg] MD Rylan Andrea Work Phone: [facility] 04-18-2022 12:41-0500 Body height 185.42 cm MD Rylan Andrea Work Phone: [facility] 04-18-2022 12:41-0500 Body weight 72.12 kg MD Rylan Andrea Work Phone: [facility] 04-14-2022 11:23-0500 Body temperature 98.3 [degF] MD Rylan Andrea Work Phone: [facility] 04-14-2022 11:23-0500 Body weight 70.3 kg MD Rylan Andrea Work Phone: [facility] 04-14-2022 11:23-0500 Diastolic blood pressure 93 mm[Hg] MD Rylan Andrea Work Phone: [facility] 04-14-2022 11:23-0500 Heart rate 95 /min MD Rylan Andrea Work Phone: [facility] 04-14-2022 11:23-0500 Respiratory rate 20 /min MD Rylan Andrea Work Phone: [facility] 04-14-2022 11:23-0500 SaO2% (BldA) [Mass fraction] 100 % MD Rylan Andrea Work Phone: [facility] 04-14-2022 11:23-0500 Systolic blood pressure 130 mm[Hg] MD Rylan Andrea Work Phone: [facility] 04-11-2022 16:03-0500 Body temperature 97.5 [degF] MD Rylan Andrea Work Phone: [facility] 04-11-2022 16:03-0500 Diastolic blood pressure 88 mm[Hg] MD Rylan Andrea Work Phone: [facility] 04-11-2022 16:03-0500 Heart rate 89 /min MD Rylan Andrea Work Phone: [facility] 04-11-2022 16:03-0500 Respiratory rate 15 /min MD Rylan Andrea Work Phone: [facility] 04-11-2022 16:03-0500 SaO2% (BldA) [Mass fraction] 97 % MD Rylan Andrea Work Phone: [facility] 04-11-2022 16:03-0500 Systolic blood pressure 125 mm[Hg] MD Rylan Andrea Work Phone: [facility] 04-11-2022 05:07-0500 Body weight 67.7 kg MD Rylan Andrea Work Phone: [facility] 04-10-2022 15:56-0500 Body height 182.88 cm MD Rylan Andrea Work Phone: [facility] 04-10-2022 15:56-0500 Body temperature 98.2 [degF] MD Rylan Andrea Work Phone: [facility] 04-10-2022 15:56-0500 Body weight 66.7 kg MD Rylan Andrea Work Phone: [facility] 04-10-2022 15:56-0500 Diastolic blood pressure 99 mm[Hg] MD Rylan Andrea Work Phone: [facility] 04-10-2022 15:56-0500 Heart rate 99 /min MD Rylan Andrea Work Phone: [facility] 04-10-2022 15:56-0500 Respiratory rate 20 /min MD Rylan Andrea Work Phone: [facility] 04-10-2022 15:56-0500 SaO2% (BldA) [Mass fraction] 98 % MD Rylan Andrea Work Phone: [facility] 04-10-2022 15:56-0500 Systolic blood pressure 148 mm[Hg] MD Rylan Andrea Work Phone: [facility] 02-27-2022 14:35-0400 Body height 182.88 cm MD Rylan Andrea Work Phone: [facility] 02-27-2022 14:35-0400 Body temperature 97.7 [degF] MD Rylan Andrae Work Phone: [facility] 02-27-2022 14:35-0400 Body weight 70.35 kg MD Rylan Andrea Work Phone: [facility] 02-27-2022 14:35-0400 Diastolic blood pressure 90 mm[Hg] MD Rylan Andrea Work Phone: [facility] 02-27-2022 14:35-0400 Heart rate 80 /min MD Rylan Andrea Work Phone: [facility] 02-27-2022 14:35-0400 Respiratory rate 20 /min MD Rylan Andrea Work Phone: [facility] 02-27-2022 14:35-0400 SaO2% (BldA) [Mass fraction] 99 % MD Rylan Andrea Work Phone: [facility] 02-27-2022 14:35-0400 Systolic blood pressure 138 mm[Hg] MD Rylan Andrea Work Phone: [facility] 09-13-2021 16:00-0400 Body height 185.42 cm Anita Lincoln Other [employer] Other 09-13-2021 16:00-0400 Body mass index (BMI) [Ratio] 20.45 kg/m2 Anita Lincoln Other [employer] Other 09-13-2021 16:00-0400 Body temperature 99.4 [degF] Anita Lincoln Other [employer] Other 09-13-2021 16:00-0400 Body weight 70.31 kg Anita Lincoln Other [employer] Other 09-13-2021 16:00-0400 Diastolic blood pressure 82 mm[Hg] Anita Lincoln Other [employer] Other 09-13-2021 16:00-0400 Respiratory rate 18 /min Anita Lincoln Other [employer] Other 09-13-2021 16:00-0400 SaO2% (BldA) [Mass fraction] 97 % Anita Lincoln Other [employer] Other 09-13-2021 16:00-0400 Systolic blood pressure 160 mm[Hg] Anita Lincoln Other [employer] Other 09-08-2021 10:09-0400 Diastolic blood pressure 78 mm[Hg] Rylan [employer] Phone: [facility] 250 DO Work Phone: 09-08-2021 10:09-0400 Systolic blood pressure 118 mm[Hg] Rylan [employer] Phone: [facility] 250 DO Work Phone: 09-08-2021 10:05-0400 Body height 182.88 cm Rylan [employer] Phone: [facility] 250 DO Work Phone: 09-08-2021 10:05-0400 Body mass index (BMI) [Ratio] 21.16 kg/m2 Rylan A [employer] Work Phone: [facility] 250 DO Work Phone: 09-08-2021 10:05-0400 Body surface area Derived from formula 1.92 m2 Rylan [employer] Phone: [facility] 250 DO Work Phone: 09-08-2021 10:05-0400 Body weight 70.76 kg Rylan Flaherty [employer] Work Phone: [facility] 250 DO Work Phone: 09-08-2021 10:05-0400 Diastolic blood pressure 76 mm[Hg] Rylan A Andrea Work Phone: [facility] 250 DO Work Phone: 09-08-2021 10:05-0400 Heart rate 96 /min Rylan Flaherty Andrea Work Phone: [facility] 250 DO Work Phone: 09-08-2021 10:05-0400 Systolic blood pressure 120 mm[Hg] Rylan Flaherty Andrea Work Phone: [facility] 250 DO Work Phone: 09-08-2021 10:05-0400 20 1 Rylan Flaherty Andrea Work Phone: [facility] DO Work Phone: Comment on above: PHQ-9 TS Encounters Encounter Date Encounter Type Care Provider Facility Start: 10-31-2023 End: 10-31-2023 ambulatory FLORINDA MONK Not Available Start: 10-17-2023 ambulatory Rylan Andrea Facility:[facility] Start: 10-04-2023 End: 10-04-2023 ambulatory MARILU WARCHOL Not Available Start: 09-19-2023 End: 09-19-2023 ambulatory MARILU WARCHOL Not Available Start: 09-11-2023 ambulatory RYLAN ANDREA [facility] Start: 09-11-2023 End: 09-11-2023 ambulatory MARILU WARCHOL Not Available Start: 08-16-2023 End: 08-16-2023 ambulatory RYLAN ANDREA Not Available Start: 06-29-2023 End: 06-29-2023 ambulatory MD Rylan Andrea Work Phone: [facility] Work Phone: Start: 06-29-2023 End: 06-29-2023 Patient encounter procedure MD Rylan Andrea Work Phone: [facility] Work Phone: Start: 06-29-2023 Registered Recurring MD Rylan Andrea [facility] Work Phone: Start: 06-25-2023 External Result Encounter Estela Varma DO Work Phone: [facility] Unsolicited Start: 06-25-2023 External Result Encounter Estela Varma DO Work Phone: [facility] External [facility] Unsolicited Start: 04-12-2023 End: 04-12-2023 ambulatory MARILU BONNER Not Available Start: 12-25-2022 End: 12-25-2022 ambulatory MD Rylan Andrea Work Phone: [facility] Work Phone: Start: 12-25-2022 End: 12-25-2022 Registered Recurring MD Rylan Andrea [facility] Work Phone: Start: 11-01-2022 End: 11-01-2022 ambulatory MD Rylan Andrea Work Phone: [facility] Work Phone: Start: 11-01-2022 End: 11-01-2022 Registered Recurring MD Rylan Andrea [facility] Work Phone: Start: 10-26-2022 End: 10-26-2022 Emergency department patient visit MD Rylan Andrea Work Phone: [facility] Work Phone: Start: 10-26-2022 Registered Recurring MD Rylan Andrea [facility] Work Phone: Start: 10-18-2022 End: 10-18-2022 Patient encounter procedure MD Rylan Andrea Work Phone: [facility] [place] Work Phone: Start: 10-18-2022 End: 10-18-2022 ambulatory MD Rylan Andrea Work Phone: [facility] Work Phone: Start: 10-10-2022 End: 10-10-[address] RYLAN ANDREA Facility:[facility] Start: 10-03-2022 End: 10-03-[address] RYLAN ANDREA Facility:[facility] Start: 09-19-2022 End: 09-19-2022 ambulatory MD Rylan Andrea Work Phone: [facility] Work Phone: Start: 09-19-2022 End: 09-19-2022 Registered Recurring MD Rylan Andrea Work Phone: [facility] Work Phone: Start: 09-19-2022 Registered Recurring MD Rylan Andrea Work Phone: [facility] Work Phone: Start: 09-11-2022 End: 09-11-[address] RYLAN ANDREA Facility:[facility] Start: 09-08-2022 End: 09-08-[address] RYLAN ANDREA Facility:[facility] Start: 09-04-2022 End: 09-04-[address] RYLAN ANDREA Facility:[facility] Start: 09-01-2022 End: 09-02-[address] RYLAN ANDREA Facility:[facility] Start: 08-27-2022 End: 08-27-[address] MELANI IBRAHIM Facility:[facility] Start: 06-22-2022 End: 06-22-2022 ambulatory MD Rylan Andrea Work Phone: [facility] Work Phone: Start: 06-22-2022 End: 06-22-2022 Registered Recurring MD Rylan Andrea Work Phone: [facility] Work Phone: Start: 06-18-2022 End: 06-18-[address] JESSE RAMOS Facility:[facility] Start: 06-16-2022 End: 06-17-2022 Admission to same day surgery center MD Rylan Andrea Work Phone: [facility] [place] Start: 06-15-2022 Office outpatient vi sit 25 minutes Kamal Chaban [facility] Start: 06-15-2022 End: 06-15-2022 ambulatory MD Rylan Andrea Work Phone: [facility] Work Phone: Start: 06-15-2022 End: 06-15-2022 Patient encounter procedure MD Rylan Andrea Work Phone: [facility] Work Phone: Start: 06-01-2022 End: 06-01-2022 ambulatory MD Rylan Andrea Work Phone: [facility] Work Phone: Start: 06-01-2022 End: 06-01-2022 Patient encounter procedure MD Rylan Adnrea Work Phone: [facility] [place] Work Phone: Start: 05-31-2022 End: 05-31-2022 ambulatory Rachid Chase Other [employer] Other Start: 05-31-2022 Office outpatient ne w 45 minutes Kamal Chaban [facility] Start: 04-21-2022 End: 04-21-2022 Admission to same day surgery center MD Rylan Andrea Work Phone: [facility] [place] Start: 04-21-2022 End: 04-21-2022 ambulatory MD Rylan Andrea Work Phone: [facility] Work Phone: Start: 04-18-2022 End: 04-18-2022 Admission to same day surgery center MD Rylan Andrea Work Phone: [facility] [place] Start: 04-18-2022 End: 04-18-2022 ambulatory MD Rylan Andrea Work Phone: [facility] Work Phone: Start: 04-14-2022 End: 04-14-2022 ambulatory MD Rylan Andrea Work Phone: [facility] Work Phone: Start: 04-14-2022 End: 04-14-2022 Registered Recurring MD Rylan Andrea Work Phone: [facility] Start: 04-14-2022 Registered Recurring MD Rylan Andrea Work Phone: [facility] Start: 04-10-2022 End: 04-11-2022 Evaluation and management of inpatient MD Rylan Andrea Work Phone: [facility] [place] [facility] Start: 04-10-2022 observation encounter MD Rylan Andrea Work Phone: [facility] Work Phone: Start: 04-10-2022 Registered Recurring MD Rylan Andrea Work Phone: [facility] Start: 02-27-2022 End: 02-27-2022 ambulatory MD Rylan Andrea Work Phone: [facility] Work Phone: Start: 02-27-2022 End: 02-27-2022 Registered Recurring MD Rylan Andrea Work Phone: [facility] Start: 11-29-2021 ambulatory Rylan Ortiz ity: Start: 11-23-2021 End: 11-24-[address] MARCE PAGAN Facility:[facility]1 Start: 09-13-2021 Chart Update Rylan Andrea Work Phone: [facility] 250 DO Work Phone: Start: 09-13-2021 End: 09-13-2021 ambulatory Anita Lincoln Other [facility] [employer] Other Start: 09-13-2021 Office outpatient vi sit 25 minutes Anita Lincoln [facility] Start: 09-09-2021 ambulatory Rylan Andrea Facil [id number] Start: 09-09-2021 [facility], Provider: Lukas Oliveira, Status: Pen, Time: 1:00 PM Rylan Andrea Work Phone: [facility] 250 DO Work Phone: Start: 09-08-2021 Office consultation new/estab patient 80 min Rylan Andrea Work Phone: [facility] 250 DO Work Phone: Start: 09-08-2021 ambulatory Estela Varma Facility: Start: 08-06-2020 End: 08-07-2020 Patient encounter procedure [facility] Start: 04-24-2018 End: 05-14-2018 Patient encounter procedure [facility] Krystina [facility] Start: 10-24-2017 End: 10-25-2017 Ambulatory [facility] Facility:[facility] Procedures Date Procedure Procedure Detail Performing Clinician Start: 06-25-2023 Carcinoembryonic antigen cea Estela Varma DO Work Phone: Comment on above: Serial tumor marker results determined by assays using different manufacturers or methods may not be comparable. [facility] care trainer and method: VALENTINE UNICEL DXI, 2 SITE IMMUNOENZYMATIC SANDWICH ASSAY. Start: 06-25-2023 Positron emission to mography with computed tomography MD Rylan Andrea Work Phone: Start: 06-25-2023 Carcinoembryonic antigen cea Estela Varma DO Work Phone: Comment on above: Result Comment: Georges al tumor marker results determined by assays using different manufacturers or methods may not be comparable. [facility] care trainer and method: VALENTINE UNICEL DXI, 2 SITE IMMUNOENZYMATIC ?SANDWICH? ASSAY. PERFORMED BY: [address] [address] PATHOLOGIST ORTHOPEDIC BRACE MAKER CATY DELCID M.D. Performed By: #### T 4F, CMP, [id number], YUSUF, CEA, FE and TIBC, LIPASE, MARILU, CBC, TSH3 ####[address]#### METH ####[facility] , Start: 06-25-2023 Complete blood count with white cell differential, automated MzingatiagoInstantLuxe DO Work Phone: Start: 06-25-2023 GLUCOSE POCT GLUCOMETERS Mzingalauren DO Work Phone: Start: 03-30-2023 Carcinoembryonic antigen cea Humberto Molina Comment on above: Result Comment: PERF ORMED BY: [address] [place] [address] PATHOLOGIST ORTHOPEDIC BRACE MAKER CATY DELCID M.D. Performed By: #### F E and TIBC, T4F, CMP, B12, FOL, CBC, CEA, MARILU, LIPASE ####[address]#### METH ####[facility] , Start: 12-22-2022 Positron emission to mography with computed tomography MD Rylan Andrea Work Phone: Start: 10-26-2022 Plain chest X-ray MD Katarina Andrea Work Phone: Start: 10-26-2022 Carcinoembryonic antigen cea Humberto Jesse Comment on above: Result Comment: PERF ORMED BY: [address] [place] [address] PATHOLOGIST ORTHOPEDIC BRACE MAKER CATY DELCID M.D. Performed By: #### C BC, ESR, CMP, FE and TIBC, YUSUF, [id number], CEA ####[facility] [id number] [place] [id number] [facility]#### EPO ####[facility] , Start: 10-18-2022 Plain chest [...] CT of thorax with contrast MD Rylan Anrdea Work Phone: Start: 01-31-2021 Plain chest X-ray [...] Screening for malign ant neoplasm of colon [facility] Start: 11-11-2023 Influenza vaccination Influenza Vacc ine (#1) [facility] Comment on above: Postponed from 01/12 (Patient Refused) Start: 07-10-2023 End: 07-10-2023 Patient encounter procedure 07/10/2023 1:40 PM EST Office Visit [facility] [address] [place] [address] Rylan Andrea MD [address] [place] [address] [facility] Start: 06-25-2023 [facility] Start: 12-11-2022 [facility] Start: 10-26-2022 Erythropoietin (EPO) [Units/volume] in Serum or Plasma [facility] Start: 06-17-2022 [facility] Start: 06-16-2022 Referral to clinical hospice chaplain [facility] Start: 04-21-2022 [facility] Start: 04-21-2022 Ultrasonic guidance for thoracentesis [facility] Start: 04-18-2022 [facility] Start: 04-18-2022 Ultrasonic guidance for thoracentesis [facility] Start: 04-14-2022 [facility] Start: 04-11-2022 [facility] Start: 04-11-2022 Troponin I.cardiac [Mass/volume] in Serum or Plasma by High sensitivity method [facility] Start: 04-10-2022 Referral to oncologist [facility] Start: 04-10-2022 Hospital admission [facility] Start: 04-10-2022 [facility] Start: 02-27-2022 [facility] Start: 11-29-2021 [facility], Provider: Lukas Oliveira, Status: Pen, Time: 11:10 AM [facility], Provider: Lukas Oliveira, Status: Pen, Time: 11:10 AM [place] [address] DO Work Phone: Start: 09-05-2021 [facility] Start: 08-22-2021 [facility] Start: 04-05-2021 [facility] Start: 02-01-2021 [facility] Start: 08-16-2020 [facility] Start: 08-05-2020 [facility] Start: 07-26-2020 [facility] Start: 07-06-2020 [facility] Start: 06-29-2020 [facility] Start: 06-14-2020 [facility] Start: 05-24-2020 [facility] Start: 05-03-2020 [facility] Start: 04-12-2020 [facility] Start: 04-12-2020 [facility] Start: 03-08-2020 [facility] Start: 02-24-2020 [facility] Start: 02-18-2020 [facility] Start: 02-16-2020 End: 02-16-2020 [facility] Start: 02-16-2020 [facility] Start: 02-10-2020 [facility] Start: 02-04-2020 End: 02-04-2020 [facility] Start: 01-28-2020 [facility] Start: 01-26-2020 [facility] Start: 01-26-2020 [facility] Start: 01-21-2020 [facility] Start: 01-21-2020 End: 01-21-2020 [facility] Start: 01-06-2020 [facility] Start: 01-05-2020 [facility] Start: 12-15-2019 [facility] Start: 11-24-2019 [facility] Start: 1965 Screening for malign ant neoplasm of colon [facility] Amylase [Enzymatic activity/volume] in Serum or Plasma Amylase Lab Routine 06/25/2023 7:57 AM EST [facility] Bacteria identified in Blood by Culture [facility] Blood culture for bacteria, including anaerobic screen Blood Culture [facility] Carcinoembryonic Ag [Mass/volume] in Serum or Plasma [facility] Comprehensive metabo lic 1999 panel - Serum or Plasma [facility] Comprehensive metabo lic 1999 panel - Serum or Plasma [facility] Comprehensive metabo lic 1999 panel - Serum or Plasma [facility] Comprehensive metabo lic 1999 panel - Serum or Plasma [facility] Comprehensive metabo lic 1999 panel - Serum or Plasma Comprehensive metabolic panel Lab Routine 06/25/2023 7:57 AM EST [facility] Work Phone: Comprehensive metabo lic 1999 panel - Serum or Plasma [facility] CT Abdomen and Pelvi s W contrast IV [facility] CT Abdomen and Pelvi s W contrast IV [facility] CT Abdomen and Pelvi s W contrast IV [facility] CT Chest W contrast IV [facility] CT Chest W contrast IV [facility] CT Chest W contrast IV [facility] Erythrocyte sediment ation rate by Photometric method [facility] Erythropoietin (EPO) [Units/volume] in Serum or Plasma [facility] Iron and Iron bindin g capacity panel - Serum or Plasma Iron and TIBC Lab Routine 06/25/2023 7:57 AM EST [facility] Lipase [Enzymatic activity/volume] in Serum or Plasma Lipase Lab Routine 06/25/2023 7:57 AM EST [facility] Methylmalonate [Moles/volume] in Serum or Plasma [facility] Patient Education [facility] Work Phone: Patient referral [facility] Work Phone: Thyrotropin [Units/v olume] in Serum or Plasma [facility] Ultrasonic guidance for thoracentesis [facility] Ultrasonic guidance for thoracentesis [facility] Immunizations Immunization Date Immunization Notes Care Provider Fa mehul 09-01-2020 Pfizer-BioNTech COVID-19 Vacc 30 MCG/0.3ML Intramuscular Suspension Rylan A Andrea Work Phone: [facility] 07-30-2020 Pfizer-BioNTech COVID-19 Vacc 30 MCG/0.3ML Intramuscular Suspension Rylan A Andrea Work Phone: [facility] 03-24-2020 influenza, injectabl e, quadrivalent, preservative free Rylan A Andrea Work Phone: [facility] 03-24-2020 influenza virus vaccine, unspecified formulation Estela Varma DO Work Phone: [facility] 03-15-2020 influenza, injectabl e, quadrivalent, preservative free Rylan A Andrea Work Phone: [facility] Payers Date Payer Category Payer Private Health Insurance [id number] 2022 Self-pay [id number] 2021 Medicaid [id number] 2021 Medicare MEDICARE MEDICAR E RAILROAD [id number] 2021-Present [employer]EN [employer]AYO RAILROAD MEDICARE [address] [address] [place] [address] Medicare [id number] 2017 Private Health Insurance 1965 Unknown [id number] 2.16.840.1.893032.3.579.2. 173 1965 Unknown [id number] 2.16.840.1.138934.3.579.2. 356 1965 Unknown [id number] 2.16.840.1.047042.3.579.2. 356 1965 Unknown [id number] 2.16.840.1.530762.3.579.2. 356 1965 Unknown [id number] 2.16.840.1.199525.3.579.2. 593 1965 Unknown [id number] 2.16.840.1.040685.3.579.2. 593 1965 Unknown [id number] 2.16.840.1.535868.3.579.2. 593 1965 Unknown [id number] 2.16.840.1.002739.3.579.2. 593 1965 Unknown [id number] 2.16.840.1.164430.3.579.2. 593 1965 Unknown [id number] 2.16.840.1.514849.3.579.2. 593 1965 Unknown [id number] 2.16.840.1.706621.3.579.2. 593 1965 Unknown [id number] 2.16.840.1.914922.3.579.2. 593 1965 Unknown [id number] 2.16.840.1.493816.3.579.2. 593 1965 Unknown [id number] 2.16.840.1.938867.3.579.2. 1286 1965 Unknown [id number] 2.16.840.1.609954.3.579.2. 1286 1965 Unknown [id number] 2.16.840.1.188585.3.579.2. 128 1965 Unknown [id number] 2.16840.1.430241.3.579.2. 128 1965 Unknown [id number] 2.16840.1.361476.3.579.2. 1286 1965 Unknown [id number] 2.840.1.402611.3.579.2. 1259 1965 Unknown [id number] 2.840.1.339197.3.579.2. 9 1965 Unknown [id number] 2.840.1.428315.3.579.2. 1258 1965 Unknown [id number] 2.16840.1.277556.3.579.2. 9 1965 Unknown [id number] 2.840.1.098548.3.579.2. 9 1965 Unknown [id number] 2.840.1.438939.3.579.2. 1259 1959 Medicaid [id number] 1959 Medicare [id number] 1959 Private Health Insurance [id number] Private Health Insurance [facility] [id number] Unknown Unknown [id number] 2.16840.1.818701.19 Unknown [id number] 2.16840.1.751973.3.579.2. 531 Unknown [id number] 2.16840.1.947759.3.579.2. 531 Unknown [id number] 2.16840.1.534575.3.579.2. 531 Social History Date Type Detail Facility Start: 04-12-2023 End: 04-13-2023 Occasional alcohol use Occasional alcohol use [facility] Comment on above: beer; medical marijuana ed ibles; quit 2020 1ppd; Start: 04-11-2023 End: 04-12-2023 Sex Assigned At [facility] Start: 02-27-2022 End: 09-04-2022 Tobacco smoking status ALIS Ex-smoker (finding) [facility] Start: 1965 Sex Assigned At Male [facility] Start: 10-26-2022 End: 12-25-2022 Tobacco smoking status ALIS Never smoked tobacco (finding) [facility] Start: 04-12-2023 Tobacco smoking status [facility] Occasional tobacco smoker [facility] History [...] Abdominal hernia surgical mesh, synthetic polymer, non-bioabsorbable ()[id number] FDA Start: 05-10-2020 Insertion of central venous catheter (CVC) with subcutaneous port for chemotherapy Vascular port/catheter ()[id number] FDA Start: 11-26-2019 Goals Date Patient Goal Desired Activity /State Functional Status Date Assessment Result Facility 06-17-2022 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 250 DO Work Phone: Mental Status Date Assessment Result Facility 06-17-2022 Cognitive function Cognitive Sta tus Patient at Baseline [facility] Work Phone: 04-11-2022 Cognitive function Cognitive Sta tus Patient at Baseline [facility] Work Phone: 04-10-2022 Cognitive function Cognitive Sta tus Patient at Baseline [facility] Work Phone: Clinical Notes 11-18-2019 to 11-07-2022 Note Date & Type Note Facility 11-07-2022 Progress note Note Date/Time November 01, 2022 11:[address] [place] [address] [facility] [place] [id number] Hem/Onc Follow Up Note - OP Signed with Addenda Patient: Kirill Echols MR#: [id number] : 1965 Acct:[id number] Age/Sex: 57 / M Type: REG RCR [...] nothing really new going on. HPI: 54-year-old -Chilean gentleman history of smoking 40 pack years [...] overwhelming for recurrence. He lives alone in [place]. His children live in [place]. His left him 8 months ago and [...] and urinary tract. Otherwise, there is an Khxbma-j-Lvqo on the left. The lungs demonstrate emphysematous [...] add on appointment after ER visit at [facility] on August 29, 2022 He went [...] for coordination of care (as documented) and qmml-cl-ddfh counseling of patient and/or family. [facility] - Medical History Medical History: Medical [...] 03/01/22 15:44 KB (Rec: 03/01/22 15:45 KB [id number]) Distress Screening Distress score of 4 or [...] % (Auto) 69.5, Lymph % (Auto) 15.0, [place] % (Auto) 12.1, Eos % (Auto) 2.6, Baso % (Auto) 0.8, Nucleat RBC Rel Count 0.2, Neut # (Auto) 4.1, Lymph # (Auto) 0.9 L, [place] # (Auto) 0.7, Eos # (Auto) 0.1, [...] <Electronically signed by ERINN Shane> 11/07/22 1149 [facility] Work Phone: 1(725) 198-628505-23-2023 Hospital Discharge instructionsAmbulatory Orders* Initiate Home Health Time Frame: 1 Day, Location: Determined By Patient * Oncology Histology Time Frame: 10/03/22, Location: Determined By Patient * Oncology Histology Time Frame: 10/17/22, Location: Determined By Patient * Oncology Histology Time Frame: 10/10/22, Location: Determined By Patient [facility] Work Phone: 1([phone]) 480-407705-09-2023 Progress note Author Estela Varma [facility] September 19, 2022 10:02am Note Date/Time September 19, 2022 9:50am [facility] [place] [address] Hem/Onc Follow Up Note - OP Signed Patient: Kirill Echols MR#: [id number] : 1965 Acct:[id number] Age/Sex: 57 / M Type: REG RCR [...] Weight loss Follow Up Instructions: f/u wth [employer]PERVISOR in 6 weeks, cbc, cmp b12, folate, [...] concerns voiced at this time. HPI: 54-year-old -Chilean gentleman history of smoking 40 pack years [...] overwhelming for recurrence. He lives alone in [place]. His children live in [place]. His left him 8 months ago and [...] and urinary tract. Otherwise, there is an Vwghgq-j-Dofg on the left. The lungs demonstrate emphysematous [...] add on appointment after ER visit at [facility] on August 29, 2022 He went [...] for coordination of care (as documented) and glwk-tz-wvuq counseling of patient and/or family. [facility] - Medical History Medical History: Medical [...] 03/01/22 15:44 KB (Rec: 03/01/22 15:45 KB [id number]) Distress Screening Distress score of 4 or [...] by Estela Varma II, DO> 09/19/22 1002 [facility] Work Phone: 1(211) 619-168504-24-2023 Progress note Author Dixie Olivia [facility] September 04, 2022 12:17pm Note Date/Time September 04, 2022 12: 04pm [facility] [place] [address] Hem/Onc Follow Up Note - OP Signed Patient: Kirill Echols MR#: [id number] : 1965 Acct:[id number] Age/Sex: 57 / M Type: REG RCR Copies to: MD Rylan Vega MD~ Subjective Date/Time of Service: Date of Service: 09/04/2022 Time of Service: 11:56 Chief Complaint: Patient is here today for a follow up visit for small cell lung cancer. He went to [place] ER for chest pressure 08-27-[address] scan for review HPI: 54-year-old -Chilean gentleman history of smoking 40 pack years [...] overwhelming for recurrence. He lives alone in [place]. His children live in [place]. His left him 8 months ago and [...] and urinary tract. Otherwise, there is an Cvzexf-w-Worn on the left. The lungs demonstrate emphysematous [...] He is considering moving back down to [facility] where he is from. 02/27/22 he didnt [...] add on appointment after ER visit at [facility] on August 29, 2022 He went [...] Narrative: Residual and chronic left-sided chest complaints. [facility] - Medical History Medical History: Medical [...] 03/01/22 15:44 KB (Rec: 03/01/22 15:45 KB [id number]) Distress Screening Distress score of 4 or [...] add on appointment after ER visit at [facility] on August 29, 2022 He went [...] today to home health care nurse at [facility]. 3.) Follow up with Dr. Varma to [...] for coordination of care (as documented) and pslv-up-njft counseling of patient and/or family. Dictated By: Dixie Olivia APRN DD/ 1156 Signed By: <Electronically signed by ERINN Olivia> 09/04/22 1217 [facility] Work Phone: 1(336) 495-444202-09-2023 Progress note Author Dixie Olivia [facility] June 22, 2022 2:24pm Note Date/Time June 22, 2022 2 :16pm [facility] [place] [address] Hem/Onc Follow Up Note - OP Signed Patient: Kirill Echols MR#: [id number] : 1965 Acct:[id number] Age/Sex: 57 / M Type: REG RCR Copies to: MD Rylan Vega MD~ Subjective Date/Time of Service: Date of Service: 06/22/2022 Time of Service: 14:09 Chief Complaint: Patient is here for a 2 month follow up with, had chest tube placed 06/16/2022. No concerns voiced at this time. HPI: 54-year-old -Chilean gentleman history of smoking 40 pack years [...] overwhelming for recurrence. He lives alone in [place]. His children live in [place]. His left him 8 months ago and [...] and urinary tract. Otherwise, there is an Cszcvu-c-Munq on the left. The lungs demonstrate emphysematous [...] He is considering moving back down to [facility] where he is from. 02/27/22 he didnt [...] diaphoresis. No orthostasis or dizziness or palpitations. [facility] - Medical History Medical History: Medical [...] History (Last Reviewed 06/16/22 @ 19:33 by AMYI Cano) H/O vasectomy H/O wrist surgery Right [...] 03/01/22 15:44 KB (Rec: 03/01/22 15:45 KB [id number]) Distress Screening Distress score of 4 or [...] for coordination of care (as documented) and dhzc-au-qtry counseling of patient and/or family. Dictated By: Dixie Olivia APRN DD/ 1409 Signed By: <Electronically signed by ERINN Olivia> 06/22/22 1422 [facility] Work Phone: 1(516) 742-733802-02-2023 Evaluation note* Encounter Date Diagnosis Assessment Notes [...] cell carcinoma of lung (ICD-10 - C34.90) [employer] Other 01-18-2023 Evaluation note* Encounter Date Diagnosis Assessment Notes Treatment Notes Treatment Clinical Notes May, Small cell carcinoma of lung (ICD-10 - C34.90) Please let me know lung CT scan to review schedule thoracentesis if needed May, Chronic obstructive pulmonary disease, unspecified COPD type (ICD-10 - J44.9) May, Shortness of breath (ICD-10 - R06.02) May, Pleural effusion (ICD-10 - J90) [employer] Other 12-02-2022 Progress note Author Estela Varma [facility] April 14, 2022 12:02pm Note Date/Time April 14, 2022 1 1:50am [facility] [place] [address] Hem/Onc Follow Up Note - OP Signed Patient: Kirill Echols MR#: [id number] : 1965 Acct:[id number] Age/Sex: 56 / M Type: REG RCR [...] concerns voiced at this time. HPI: 54-year-old -Chilean gentleman history of smoking 40 pack years [...] overwhelming for recurrence. He lives alone in [place]. His children live in [place]. His left him 8 months ago and [...] and urinary tract. Otherwise, there is an Gyhdiu-j-Sigr on the left. The lungs demonstrate emphysematous [...] He is considering moving back down to [facility] where he is from. 02/27/22 he didnt [...] for coordination of care (as documented) and zoly-ry-gwvl counseling of patient and/or family. [facility] - Medical History Medical History: Medical [...] 03/01/22 15:44 KB (Rec: 03/01/22 15:45 KB [id number]) Distress Screening Distress score of 4 or [...] % (Auto) 71.4, Lymph % (Auto) 16.2, [place] % (Auto) 8.6, Eos % (Auto) 2.9, Baso % (Auto) 0.9, Neut # (Auto) 4.5, Lymph # (Auto) 1.0, [place] # (Auto) 0.5, Eos# (Auto) 0.2, Baso [...] by Estela Varma II, DO> 04/14/22 1202 [facility] Work Phone: 1(894) 730-122010-17-2022 Progress note Author Estela Varma [facility] February 27, 2022 2:56pm Note Date/Time February 27, 2022 2 :51pm [facility] at [address] [address] Hem/Onc Follow Up Note - OP Signed Patient: Kirill Echols MR#: [id number] : 1965 Acct:[id number] Age/Sex: 56 / M Type: REG RCR [...] for review. No concerns voiced. HPI: 54-year-old -Chilean gentleman history of smoking 40 pack years [...] overwhelming for recurrence. He lives alone in [place]. His children live in [place]. His left him 8 months ago and [...] and urinary tract. Otherwise, there is an Pjovxf-a-Wpjg on the left. The lungs demonstrate emphysematous [...] He is considering moving back down to [facility] where he is from. 02/27/22 he didnt [...] for coordination of care (as documented) and fztf-nf-zfwt counseling of patient and/or family. [facility] - Medical History Medical History: Medical [...] 09/14/21 14:56 KB (Rec: 09/14/21 14:59 KB [id number]) Distress Screening Distress score of 4 or more discussed Yes with patient? Distress screening follow up: Spoke with patient via phone. Patient is doing ok at this time. Recently had a heart cath which was negative. He is happpy that his scans are good. Dr. Perez is working on getting him into [facility]. - Lab Results Diagram of Most Recent [...] by Estela Varma II, DO> 02/27/22 1456 [facility] Work Phone: 1([phone]) 301-171805-03-2022 Evaluation note* Encounter Date Diagnosis Assessment Notes [...] Dr. Andrea to discuss plan of care. [employer] Other 04-25-2022 Progress note Author Estela Varma [facility] September 05, 2021 6:32pm Note Date/Time September 05, 2021 12: 28pm [facility] at [address] [address] Hem/Onc Follow Up Note - OP Signed Patient: Kirill Echols MR#: [id number] : 1965 Acct:[id number] Age/Sex: 56 / M Type: REG RCR [...] concerns voiced at this time. HPI: 54-year-old -Chilean gentleman history of smoking 40 pack years [...] overwhelming for recurrence. He lives alone in [place]. His children live in [place]. His left him 8 months ago and [...] and urinary tract. Otherwise, there is an Dmuhil-w-Gxsw on the left. The lungs demonstrate emphysematous [...] He is considering moving back down to [facility] where he is from. - Physical Exam [...] for coordination of care (as documented) and moih-tr-wkca counseling of patient and/or family. [facility] - Medical History Medical History: Medical [...] 02/02/21 13:22 KB (Rec: 02/02/21 13:23 KB [id number]) Distress Screening Distress score of 4 or [...] % (Auto) 69.0, Lymph % (Auto) 18.2, [place] % (Auto) 7.9, Eos % (Auto) 4.2, Baso % (Auto) 0.7, Neut # (Auto) 3.5, Lymph # (Auto) 0.9 L, [place] # (Auto) 0.4, Eos # (Auto) 0.2, [...] by Estela Varma II, DO> 09/05/21 1832 [facility] Work Phone: 1([phone]) 660-625104-11-2022 Progress note Author Estela Varma [facility] August 22, 2021 3:19pm Note Date/Time August 22, 2021 2:5 3pm [facility] at [address] [address] Hem/Onc Follow Up Note - OP Signed Patient: Kirill Echols MR#: [id number] : 1965 Acct:[id number] Age/Sex: 56 / M Type: REG RCR [...] been having shortness of breath HPI: 54-year-old -Chilean gentleman history of smoking 40 pack years [...] overwhelming for recurrence. He lives alone in [place]. His children live in [place]. His left him 8 months ago and [...] for coordination of care (as documented) and deoe-vx-jinz counseling of patient and/or family. [facility] - Medical History Medical History: Medical [...] 02/02/21 13:22 KB (Rec: 02/02/21 13:23 KB [id number]) Distress Screening Distress score of 4 or [...] % (Auto) 62.5, Lymph % (Auto) 20.1, [place] % (Auto) 11.9, Eos % (Auto) 4.8, Baso % (Auto) 0.7, Neut # (Auto) 3.0, Lymph # (Auto) 1.0, [place] # (Auto) 0.6, Eos # (Auto) 0.2, [...] by Estela Varma II, DO> 08/22/21 1519 [facility] Work Phone: 1(862) 705-315211-23-2021 Progress note Author George Ash [facility] April 05, 2021 12:34pm Note Date/Time April 05, 2021 12:28pm [facility] at [address] [address] Hem/Onc Follow Up Note - OP Signed Patient: Kirill Echols MR#: [id number] : 1965 Acct:[id number] Age/Sex: 55 / M Type: REG RCR [...] has seen cardiology and was evaluated in [place] including a stress test. Nothing ever came [...] diaphoresis. No orthostasis or dizziness or palpitations. [facility] - Medical History Medical History: Medical [...] 02/02/21 13:22 KB (Rec: 02/02/21 13:23 KB [id number]) Distress Screening Distress score of 4 or [...] % (Auto) 74.7, Lymph % (Auto) 11.7, [place] % (Auto) 10.3, Eos % (Auto) 2.5, Baso % (Auto) 0.8, Neut # (Auto) 6.1, Lymph # (Auto) 1.0, [place] # (Auto) 0.9H, Eos # (Auto) 0.2, [...] had extensive work-up in the past in [place] including stress test. He has seen cardiology. [...] for coordination of care (as documented) and qdwf-sg-uavf counseling of patient and/or family. Dictated By: George Ash MD DD/ 1227 Signed By: <Electronically signed by MD George Ash> 04/05/21 1234 [facility] Work Phone: 1([phone]) [phone] Progress note Author George Ash [facility] February 08, 2021 11:42am Note Date/Time February 08, 2021 11:41am [facility] [place] [address] Hem/Onc Follow Up Note - OP Signed Patient: Kirill Echols MR#: [id number] : 1965 Acct:[id number] Age/Sex: 55 / M Type: REG RCR [...] & no additional complaints except as documented [facility] - Medical History Medical History: Medical [...] for coordination of care (as documented) and airo-kf-amjb counseling of patient and/or family. Dictated By: George Ash MD DD/ 39 Signed By: <Electronically signed by MD George Ash> 02/08/21 1142 [facility] Work Phone: 1([phone]) 353-111909-21-2021 Progress note Author George Ash [facility] February 01, 2021 11:20am Note Date/Time February 01, 2021 11:19am [facility] [place] [id number] Hem/Onc Follow Up Note - OP Signed Patient: Kirill Echols MR#: [id number] : 1965 Acct:[id number] Age/Sex: 55 / M Type: REG RCR Copies to: MD Rylan Vega MD~ Subjective Date/Time of Service: Date of Service: 02/01/2021 Time of Service: 11:16 Chief Complaint: Patient is here today d/t pain and numbness left side of chest radiates to back. He has been to [facility] and [facility], He went to his family doctor [...] & no additional complaints except as documented [facility] - Medical History Medical History: Medical [...] % (Auto) 76.8, Lymph % (Auto) 13.5, [place] % (Auto) 7.5, Eos % (Auto) 1.4, Baso % (Auto) 0.8, Neut # (Auto) 5.1, Lymph # (Auto) 0.9 L, [place] # (Auto) 0.5, Eos # (Auto) 0.1, [...] for coordination of care (as documented) and onqb-jy-zxte counseling of patient and/or family. Dictated By: George Ash MD DD/ 1116 Signed By: <Electronically signed by MD George Ash> 02/01/21 1120 [facility] Work Phone: 1([phone]) 362-293307-27-2021 Progress note Author George Ash [facility] December 07, 2020 11:02am Note Date/Time December 07, 2020 10:4 0am [facility] [place] [id number] Hem/Onc Follow Up Note - OP Signed Patient: Kirill Echols MR#: [id number] : 1965 Acct:[id number] Age/Sex: 55 / M Type: REG RCR [...] with RIGHT supraclavicular region. These may be territory representative of metastatic lymph nodes. There is [...] % (Auto) 71.8, Lymph % (Auto) 12.7, [place] % (Auto) 10.8, Eos % (Auto)3.9, Baso % (Auto) 0.8, Neut # (Auto) 4.8, Lymph # (Auto) 0.9 L, [place] # (Auto) 0.7, Eos # (Auto) 0.3, [...] for coordination of care (as documented) and ckul-nb-vsio counseling of patient and/or family. Dictated By: George Ash MD DD/ 1039 Signed By: <Electronically signed by MD George Ash> 12/07/20 1102 [facility] Work Phone: 1(852) 788-284004-29-2021 Progress note Author Santhosh Chan [facility] September 09, 2020 11:30am Note Date/Time September 09, 2020 11: 21am [facility] [place] [address] Hem/Onc Follow Up Note - OP Signed Patient: Kirill Echols MR#: [id number] : 1965 Acct:[id number] Age/Sex: 55 / M Type: REG RCR [...] for coordination of care (as documented) and kvks-rg-bhdd counseling of patient and/or family. Dictated By: Santhosh Chan MD DD/ 1118 Signed By: <Electronically signed by Santhosh Chan MD> 09/09/20 1130 [facility] Work Phone: 1(228) 403-899904-22-2021 Progress note Author Santhosh Chan [facility] September 02, 2020 11:55am Note Date/Time September 02, 2020 11: 53am [facility] at [address] [address] Hem/Onc Follow Up Note - OP Signed Patient: Kirill Echols MR#: [id number] : 1965 Acct:[id number] Age/Sex: 55 / M Type: REG RCR [...] for coordination of care (as documented) and dcht-qs-doeb counseling of patient and/or family. Dictated By: Santhosh Chan MD DD/ 50 Signed By: <Electronically signed by Santhosh Chan MD> 09/02/20 0317 [facility] Work Phone: 1(392) 780-650502-23-2021 Progress note Author Santhosh Chan [facility] July 06, 2020 1:19pm Note Date/Time July 06, 2020 1:17pm [facility] [place] [address] Hem/Onc Follow Up Note - OP Signed Patient: Kirill Echols MR#: [id number] : 1965 Acct:[id number] Age/Sex: 55 / M Type: REG RCR [...] & no additional complaints except as documented [facility] - Medical History Medical History: Medical [...] % (Auto) 65.3, Lymph % (Auto) 17.0, [place] % (Auto) 13.4, Eos % (Auto) 3.8, Baso % (Auto) 0.5, Neut # (Auto) 2.9, Lymph # (Auto) 0.7 L, [place] # (Auto) 0.6, Eos # (Auto) 0.2, [...] the process of transitioning her practice to [facility]. (4) Anxiety - Time with Patient Time Spent with Patient (Follow Up Visit): 25 minutes, 35 minutes Coordination of Care & Counseling Time: Greater than 50% of time spent with patient was for coordination of care (as documented) and rduc-qt-elcz counseling of patient and/or family. Dictated By: Santhosh Chan MD DD/ 15 Signed By: <Electronically signed by Santhosh Chan MD> 07/06/20 1319 [facility] Work Phone: 1([phone]) 995-888802-02-2021 Progress note Author Santhosh Chan [facility] June 15, 2020 4:23pm Note Date/Time June 15, 2020 3 :28pm [facility] [place] [address] Hem/Onc Follow Up Note - OP Signed Patient: Kirill Echols MR#: [id number] : 1965 Acct:[id number] Age/Sex: 55 / M Type: REG RCR [...] & no additional complaints except as documented [facility] - Medical History Medical History: Medical [...] % (Auto) 57.8, Lymph % (Auto) 19.4, [place] % (Auto) 16.6, Eos % (Auto) 5.5, Baso % (Auto) 0.7, Neut # (Auto) 2.1, Lymph # (Auto) 0.7 L, [place] # (Auto) 0.6, Eos # (Auto) 0.2, [...] the process of transitioning her practice to [facility]. -OARRS reviewed, no concern. Refill prescription of 2 weeks of oxycodone IR 10 mg (down from 15 mg)x56 provided today (taken 6-hour as needed). (3) Anxiety - Time with Patient Time Spent with Patient (Follow Up Visit): 35 minutes Coordination of Care & Counseling Time: Greater than 50% of time spent with patient was for coordination of care (as documented) and lovi-ah-pycj counseling of patient and/or family. Dictated By: Santhosh Chan MD DD/ 1528 Signed By: <Electronically signed by Santhosh Chan MD> 06/15/20 1623 [facility] Work Phone: [phone] Progress note Author George Ash [facility] April 06, 2020 3:03pm Note Date/Time April 06, 2020 3:00pm [facility] [place] [address] Hem/Onc Follow Up Note - OP Signed Patient: Kirill Echols MR#: [id number] : 1965 Acct:[id number] Age/Sex: 54 / M Type: REG RCR [...] PET scan. Patient: Kirill Echols MR#: [id number] : 1965 Acct:[id number] Age/Sex: 54 / M ADM Date: 0 Loc: XT Room: Type: [facility] RCR Attending Dr: George Ash MD Ordering Provider: George Ash MD Date of Service: 03/23/20 CT/CT chest w con: restaging,C34.90 ([id number]) CT/CT abdomen pelvis w con: restaging,C34.90 Copies [...] proximal great vessels. Patient has a left-sided Hqlsbc-p-Eeiu catheter. There is continued ill-defined soft tissue [...] the findings below: Patient: Kirill Echols MR#: [id number] : 1965 Acct:[id number] Age/Sex: 54 / M ADM Date: 0 Loc: Room: Type: [facility] Attending Dr: Varghese Duval MD Ordering Provider: [...] with RIGHT supraclavicular region. These may be territory representative of metastatic lymph nodes. There is [...] Franklin Gomes M.D.10/31/2019 2:44 PM Dictation Location: [facility] The patient was seen by Dr. James and evaluated by Dr. Duval. 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 [facility] - Medical History Medical History: Medical [...] for coordination of care (as documented) and wxkn-bs-cuov counseling of patient and/or family. Dictated By: George Ash MD DD/ 1459 Signed By: <Electronically signed by MD George Ash> 04/06/20 6979 [facility] Work Phone: [phone] Progress note Author George Ash [facility] March 02, 2020 11:39am Note Date/Time March 02, 2020 1 1:38am [facility] [place] [address] Hem/Onc Follow Up Note - OP Signed Patient: Kirill Echols MR#: [id number] : 1965 Acct:[id number] Age/Sex: 54 / M Type: REG RCR [...] the findings below: Patient: Kirill Echols MR#: [id number] : 1965 Acct:[id number] Age/Sex: 54 / M ADM Date: 0 Loc: Room: Type: [facility] CLI Attending Dr: Varghese Duval MD Ordering Provider: Varghese Duval MD Date of Service: 10/31/19 PET/PET tumor init tx strat sb-mt: R91.1 R91.8 R59.1 Copies to: MD Rylan Vega MD [place] DO~ PET/CT FUSION IMAGING CLINICAL INFORMATION: Single [...] with RIGHT supraclavicular region. These may be territory representative of metastatic lymph nodes. There is [...] Franklin Gomes M.D.10/31/2019 2:44 PM Dictation Location: [facility] The patient was seen by Dr. James and evaluated by Dr. Duval. 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 [facility] - Medical History Medical History: Medical [...] Neut % (Auto)79.5, Lymph % (Auto) 9.8, [place] % (Auto) 8.4, Eos % (Auto) 1.7, Baso % (Auto) 0.6, Neut # (Auto) 6.1, Lymph # (Auto) 0.8 L, [place] # (Auto) 0.6, Eos # (Auto) 0.1, [...] % (Auto) N/A, Lymph % (Auto) N/A, [place] % (Auto) N/A, Eos % (Auto) N/A, Baso % (Auto) N/A, Neut # (Auto) N/A, Lymph # (Auto) N/A, [place] # (Auto) N/A, Eos # (Auto) N/A, [...] for coordination of care (as documented) and cveq-ww-ikud counseling of patient and/or family. Dictated By: George Ash MD DD/ 1135 Signed By: <Electronically signed by MD George Ash> 03/02/20 1139 [facility] Work Phone: [phone] Progress note Author Leoncio Kowalski [facility] February 25, 2020 3:54pm Note Date/Time February 25, 2020 2 :49pm [facility] [place] [address] Rad Onc Follow Up Note - OP Signed Patient: Kirill Echols MR#: [id number] : 1965 Acct:[id number] Age/Sex: 54 / M Type: REG RCR Copies to: MD Rylan Vega MD James E Fanning, MD~ Subjective - Service Date/Time Date: 02/25/20 Time: 14:49 - Diagnosis 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 He has been seen by Dr. sAh and hisport placement will be scheduled within [...] she has recently taken him to the [place] [facility] (couple of times). He has chronic [...] signed by Leoncio Kowalski MD> 02/25/20 1554 [facility] Work Phone: [phone] Progress note Author George Ash [facility] February 10, 2020 1:23pm Note Date/Time February 10, 2020 1:20pm [facility] [place] [address] Hem/Onc Follow Up Note - OP Signed Patient: Kirill Echols MR#: [id number] : 1965 Acct:[id number] Age/Sex: 54 / M Type: REG RCR [...] the findings below: Patient: Kirill Echols MR#: [id number] : 1965 Acct:[id number] Age/Sex: 54 / M ADM Date: 0 Loc: Room: Type: [facility] CLI Attending Dr: Varghese Duval MD Ordering Provider: Varghese Duvla MD Date of Service: 10/31/19 PET/PET tumor init tx strat sb-mt: R91.1 R91.8 R59.1 Copies to: MD Rylan Vega MD [facility] DO~ PET/CT FUSION IMAGING CLINICAL INFORMATION: Single [...] with RIGHT supraclavicular region. These may be territory representative of metastatic lymph nodes. There is [...] Franklin Gomes M.D.10/31/2019 2:44 PM Dictation Location: [facility] The patient was seen by Dr. James and evaluated by Dr. Duval. 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 [facility] - Medical History Medical History: Medical [...] % (Auto) 71.8, Lymph % (Auto) 16.0, [place] % (Auto) 10.5, Eos % (Auto) 0.9, Baso % (Auto) 0.8, Neut # (Auto) 4.8, Lymph # (Auto) 1.1, [place] # (Auto) 0.7, Eos # (Auto) 0.1, Baso # (Auto) 0.1, Nucleated RBC % (auto) 0.1 02/04/20 08:35: WBC 13.5 H, Corrected WBC 13.5 H, RBC 3.87 L, Hgb 12.3 L, Hct 38.1 L, MCV 98.6, MCH 31.7, MCHC 32.2 L, RDW 21.3 H, Plt Count 264, MPV 7.4, Neut % (Auto) 72.3, Lymph % (Auto) 7.8, [place] % (Auto) 18.7, Eos % (Auto) 0.3, Baso % (Auto) 0.9, Neut # (Auto) 9.7 H, Lymph # (Auto) 1.1, [place] # (Auto) 2.5 H,Eos # (Auto) 0.0, [...] for coordination of care (as documented) and pgeo-ve-njer counseling of patient and/or family. Dictated By: George Ash MD DD/ 1315 Signed By: <Electronically signed by MD George Ash> 02/10/20 8285 [facility] Work Phone: [phone] Progress note Author George Ash [facility] January 20, 2020 11:30am Note Date/Time January 20, 2020 11:28am [facility] at [address] [address] Hem/Onc Follow Up Note - OP Signed Patient: Kirill Echols MR#: [id number] : 1965 Acct:[id number] Age/Sex: 54 / M Type: REG RCR [...] on pro which I did add today. [facility] is following him now for palliative pain control and this is clearly better. He is off of steroids. His synovitis and arthritis have resolved. [facility] - Medical History Medical History: Medical [...] for coordination of care (as documented) and mfoh-ew-grrt counseling of patient and/or family. Dictated By: George Ash MD DD/ 1127 Signed By: <Electronically signed by MD George Ash> 01/20/20 1130 [facility] Work Phone: [phone] Progress note Author George Ash [facility] December 30, 2019 10:35am Note Date/Time December 30, 2019 10 :01am [facility] [place] [id number] Hem/Onc Follow Up Note - OP Signed Patient: Kirill Echols MR#: [id number] : 1965 Acct:[id number] Age/Sex: 54 / M Type: REG RCR [...] I have instructed him to get some bgrx-lzo-trppuhl Prilosec for this. He has some type [...] the findings below: Patient: Kirill Echols MR#: [id number] : 1965 Acct:[id number] Age/Sex: 54 / M ADM Date: 0 Loc: Room: Type: [facility] Attending Dr: Varghese Duval MD Ordering Provider: [...] with RIGHT supraclavicular region. These may be territory representative of metastatic lymph nodes. There is [...] Franklin Gomes M.D.10/31/2019 2:44 PM Dictation Location: [facility] The patient was seen by Dr. James and evaluated by Dr. Duval. 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 [facility] - Medical History Medical History: Medical [...] % (Auto) N/A, Lymph % (Auto) N/A, [place] % (Auto) N/A, Eos % (Auto) N/A, Baso % (Auto) N/A, Neut # (Auto) N/A, Lymph # (Auto) N/A, [place] # (Auto) N/A, Eos # (Auto) N/A, [...] for coordination of care (as documented) and xwhw-ee-mlsk counseling of patient and/or family. Dictated By: George Ash MD DD/ 0959 Signed By: <Electronically signed by MD George Ash> 12/30/19 9197 [facility] Work Phone: [phone] Progress note Author George Ash [facility] December 23, 2019 10:25am Note Date/Time December 23, 2019 10 :18am [facility] [place] [address] Hem/Onc Follow Up Note - OP Signed Patient: Kirill Echols MR#: [id number] : 1965 Acct:[id number] Age/Sex: 54 / M Type: REG RCR [...] the findings below: Patient: Kirill Echols MR#: [id number] : 1965 Acct:[id number] Age/Sex: 54 / M ADM Date: 0 Loc: Room: Type: [facility] Attending Dr: Varghese Duval MD Ordering Provider: [...] with RIGHT supraclavicular region. These may be territory representative of metastatic lymph nodes. There is [...] Franklin Gomes M.D.10/31/2019 2:44 PM Dictation Location: [facility] The patient was seen by Dr. James and evaluated by Dr. Duval. 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 [facility] - Medical History Medical History: Medical [...] for coordination of care (as documented) and dwdn-un-stoo counseling of patient and/or family. Dictated By: George Ash MD DD/ 1015 Signed By: <Electronically signed by MD George Ash> 12/23/19 1025 [facility] Work Phone: [phone] Progress note Author George Ash [facility] December 16, 2019 11:08am Note Date/Time December 16, 2019 11: 01am [facility] [place] [id number] Hem/Onc Follow Up Note - OP Signed Patient: Kirill Echols MR#: [id number] : 1965 Acct:[id number] Age/Sex: 54 / M [facility] Copies to: MD Rylan Vega MD~ Subjective [...] the findings below: Patient: Kirill Echols MR#: [id number] : 1965 Acct:[id number] Age/Sex: 54 / M ADM Date: 0 Loc: [facility]: [facility]: Varghese Duval MD Ordering Provider: [...] with RIGHT supraclavicular region. These may be territory representative of metastatic lymph nodes. There is [...] Franklin Gomes M.D.10/31/2019 2:44 PM Dictation Location: [facility] The patient was seen by Dr. James and evaluated by Dr. Duval. 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 [facility] - Medical History Medical History: Medical [...] % (Auto) 33.7, Lymph % (Auto) 41.5, [place] % (Auto) 21.4, Eos % (Auto) 2.0, Baso % (Auto) 1.4, Neut # (Auto) 1.6 L, Lymph # (Auto) 1.9, [place] # (Auto) 1.0 H, Eos # (Auto) [...] % (Auto) 21.1, Lymph % (Auto) 51.6, [place] % (Auto) 24.2, Eos % (Auto) 1.9, Baso % (Auto) 1.2, Neut # (Auto) 0.5 L, Lymph # (Auto) 1.3, [place] # (Auto) 0.6, Eos # (Auto) 0.0, [...] for coordination of care (as documented) and oqzr-hg-jnhy counseling of patient and/or family. Dictated By: George Ash MD DD/ 1051 Signed By: <Electronically signed by MD George Ash> 12/16/19 0088 [facility] Work Phone: [phone] Progress note Author George Ash [facility] December 09, 2019 11:13am Note Date/Time December 09, 2019 11:1 1am [facility] at [address] [address] Hem/Onc Follow Up Note - OP Signed Patient: Kirill Echols MR#: [id number] : 1965 Acct:[id number] Age/Sex: 54 / M Type: REG RCR [...] the findings below: Patient: Kirill Echols MR#: [id number] : 1965 Acct:[id number] Age/Sex: 54 / M ADM Date: 0 Loc: Room: Type: [facility] CLI Attending Dr: Varghese Duval MD Ordering Provider: Varghsee Duval MD Date of Service: 10/31/19 PET/PET [...] with RIGHT supraclavicular region. These may be territory representative of metastatic lymph nodes. There is [...] ofsupraclavicular node showed small cell neuroendocrine tumor. [facility] - Medical History Medical History: Medical [...] 7 Days 12/09/19 09:14: PHA Creatinine Clear 109.8119216744, Sodium 130 L, Potassium 4.3, Chloride 99, [...] at thattime as well. His dose of HOUSE DIRECTOR-16 is adjusted to 50% due to liver [...] for coordination of care (as documented) and pkjj-gh-ekbv counseling of patient and/or family. Dictated By: George Ash MD DD/ 1109 Signed By: <Electronically signed by MD George Ash> 12/09/19 1113 [facility] Work Phone: [phone] Progress note Author George Ash [facility] November 25, 2019 11:06am Note Date/Time November 25, 2019 11:0 1am [facility] [place] [id number] Hem/Onc Follow Up Note - OP Signed Patient: Kirill Echols MR#: [id number] : 1965 Acct:[id number] Age/Sex: 54 / M Type: REG RCR [...] the findings below: Patient: Kirill Echols MR#: [id number] : 1965 Acct:[id number] Age/Sex: 54 / M ADM Date: 0 Loc: Room: Type: [facility] Attending Dr: Varghese Duval MD Ordering Provider: [...] with RIGHT supraclavicular region. These may be territory representative of metastatic lymph nodes. There is [...] Franklin Gomes M.D.10/31/2019 2:44 PM Dictation Location: [facility] The patient was seen by Dr. James and evaluated by Dr. Duval. 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 The patient does have evidence of hyponatremia. It is somewhat mild. He does have clubbing on physical exam. [facility] - Medical History Medical History: Medical [...] % (Auto) 62.6, Lymph % (Auto) 28.7, [place] % (Auto) 6.5, Eos % (Auto) 1.5, Baso % (Auto) 0.7, Neut # (Auto) 4.6, Lymph # (Auto) 2.1, [place] # (Auto) 0.5, Eos # (Auto) 0.1, Baso # (Auto) 0.0, Nucleated RBC % (auto) 0.2 11/24/19 07:33: PHA Creatinine Clear 75.0371610429, Sodium 128 L, Potassium 3.7,Chloride 93 L, [...] Not detected 11/18/19 14:04: PHA Creatinine Clear 68.5002182159, Sodium 128 L, Potassium 4.8,Chloride 93 L, [...] Neut % (Auto)N/A, Lymph % (Auto) N/A, [place] % (Auto) N/A, Eos % (Auto) N/A, Baso % (Auto) N/A,Neut # (Auto) N/A, Lymph # (Auto) N/A, [place] # (Auto) N/A, Eos # (Auto) N/A, [...] for coordination of care (as documented) and vyih-sb-kcft counseling of patient and/or family. Dictated By: George Ash MD DD/ 1100 Signed By: <Electronically signed by MD George Ash> 11/25/19 1106 [facility] Work Phone: [phone] Consult note Author Leoncio Kowalski [facility] November 20, 2019 2:44pm Note Date/Time November 20, 2019 1:38p m [facility] [place] [address] Rad Onc Consult Note - OP Signed Patient: Kirill Echols MR#: [id number] : 1965 Acct:[id number] Age/Sex: 54 / M Type: REG RCR Copies to: MD Rylan Vega MD James E Fanning, MD~ HPI - Service Date/Time Date: 11/20/19 Time: 09:50 Diagnosis: 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 Chief Complaint: I am here for my radiation therapy treatments for lung cancer HPI: 54-year-old -[place] gentleman history of smoking 40 pack years [...] <Electronically signed by Leoncio Kowalski MD> 11/20/19 5117 [facility] Work Phone: [phone] Progress note Author George Ash [facility] November 20, 2019 11:12am Note Date/Time November 20, 2019 11:06 am [facility] [place] [address] Hem/Onc Follow Up Note - OP Signed Patient: Kirill Echols MR#: [id number] : 1965 Acct:[id number] Age/Sex: 54 / M Type: REG RCR [...] see Dr. Duval tomorrow for consideration of Dkcmbg-f-Lsgt. Chemotherapy education will be tomorrow November 20. [...] the findings below: Patient: Kirill Echols MR#: [id number] : 1965 Acct:[id number] Age/Sex: 54 / M ADM Date: 0 Loc: Room: Type: [facility] Attending Dr: Varghese Duval MD Ordering Provider: [...] with RIGHT supraclavicular region. These may be territory representative of metastatic lymph nodes. There is [...] Franklin Gomes M.D.10/31/2019 2:44 PM Dictation Location: [facility] The patient was seen by Dr. James and evaluated by Dr. Duval. 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 The patient does have evidence of hyponatremia. It is somewhat mild. He does have clubbing on physical exam. [facility] - Medical History Medical History: Medical [...] 7 Days 11/18/19 14:04: PHA Creatinine Clear 68.9241747598, Sodium 128 L, Potassium 4.8,Chloride 93 L, [...] Neut % (Auto)N/A, Lymph % (Auto) N/A, [place] % (Auto) N/A, Eos % (Auto) N/A, Baso % (Auto) N/A,Neut # (Auto) N/A, Lymph # (Auto) N/A, [place] # (Auto) N/A, Eos # (Auto) N/A, [...] cancer The patient will be seen for Xgruwj-d-Etvw tomorrow. Head CT has been ordered and [...] for coordination of care (as documented) and oceo-qa-fttn counseling of patient and/or family. Dictated By: George Ash MD DD/ 1104 Signed By: <Electronically signed by MD George Ash> 11/20/19 1112 [facility] Work Phone: [phone] Consult note Author George Ash [facility] November 18, 2019 2:02pm Note Date/Time November 18, 2019 1:50p m [facility] [place] [address] Hem/Onc Consult Note - OP Signed Patient: Kirill Echols MR#: [id number] : 1965 Acct:[id number] Age/Sex: 54 / M Type: REG RCR [...] the findings below: Patient: Kirill Echols MR#: [id number] : 1965 Acct:[id number] Age/Sex: 54 / M ADM Date: 0 Loc: Room: Type: [facility] Attending Dr: Varghese Duval MD Ordering Provider: [...] with RIGHT supraclavicular region. These may be territory representative of metastatic lymph nodes. There is [...] Franklin Gomes M.D.10/31/2019 2:44 PM Dictation Location: [facility] The patient was seen by Dr. James and evaluated by Dr. Duval. 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 I was called by Dr. Duval today 11/18/2019 and arrange to see the patient immediately. The patient does have evidence of hyponatremia. It is somewhat mild. He does have clubbing on physical exam. [facility] - Medical History Medical History: Medical [...] for immediate head CT. He will need Tsedur-r-Xhuk placement and I will refer him to Dr. Duval for this. The patient has fairly limited disease in the chest and mediastinum and may very well be a candidate for combined modality therapy with chemotherapy and radiation. I will refer himto radiation oncology here at [facility]. We will recommend to him immediate chemotherapy [...] for coordination of care (as documented) and oxbo-si-luei counseling of patient and/or family. Dictated By: George Ash MD DD/ 1932 Signed By: <Electronically signed by MD George Ash> 11/18/19 1402 [facility] Work Phone: Evaluation noteNo assessment information available [facility] Work Phone: evaluation note* Diagnosis Onset Date Resolution Status Anemia due to chemotherapy a cute Anxiety acute Cancer-related pain acute Chest pain acute Diarrhea acute Edema acute Joint pain acute Neck pain acute Small cell lung cancer chron ic [facility] Work Phone: Evaluation note* Diagnosis Onset Date Resolution Status Anemia due to chemotherapy a cute Anxiety acute Cancer-related pain acute Chest pain acute Diarrhea acute Edema acute Joint pain acute Neck pain acute Small cell lung cancer chron ic Chest pain acute [facility] Work Phone: evaluation note* Diagnosis Onset Date Resolution Status Chest pain acute Small cell lung cancer acute Anemia due to chemotherapy a cute Anxiety acute Cancer-related pain acute Chest pain acute Diarrhea acute Edema acute Joint pain acute Neck pain acute Small cell lung cancer chron ic [facility] Work Phone: evaluation note* Diagnosis Onset Date Resolution Status Chest pain acute Small cell lung cancer acute Anemia due to chemotherapy a cute Anxiety acute Cancer-related pain acute Chest pain acute Diarrhea acute Edema acute Joint pain acute Neck pain acute Small cell lung cancer chron ic Small cell lung cancer acute [facility] Work Phone: evaluation note* Diagnosis Onset [...] Diarrhea resolved Edema resolved Neck pain resolved [facility] Work Phone: Evaluation note* Diagnosis Onset Date Resolution Status Cancer-related pain acute Chronic hyponatremia acute Joint pain acute Shortness of breath acute Weight loss acute Small cell lung cancer chron ic Anxiety resolved Chest pain resolved Diarrhea resolved Edema resolved Neck pain resolved [facility] Work Phone: Evaluation note* Diagnosis Onset Date Resolution Status Cancer-related pain acute Chronic hyponatremia acute Joint pain acute Shortness of breath acute Weight loss acute Small cell lung cancer chron ic Anxiety resolved Chest pain resolved Diarrhea resolved Edema resolved Neck pain resolved Small cell lung cancer chron [facility] Work Phone: History and physical note Author Tez Irene [facility] April 10, 2022 3:12pm Note Date/Time April 10, 2022 3:12pm [facility] [address] [place] [address] Hospitalist H&P Signed Patient: Kirill Echols MR#: [id number] : 1965 Acct:[id number] Age/Sex: 56 / M Adm Date: 2 Loc: Room: [address] [place] [address] Type: ADM INOo Attending Dr: Tez Irene [...] right hand Pancreatitis Anxiety disorder and depression [facility] Vaccinated for COVID-19?: Yes Medical History [...] % (Auto) 14.2 % (.) 04/10/22 10:20 [place] % (Auto) 9.9 % (.) 04/10/22 10:20 Eos % (Auto) 1.5 % (.) 04/10/22 10:20 Baso % (Auto) 1.0 % (.) 04/10/22 10:20 Neut # (Auto) 4.5 x10E3/uL (1.8-7.7) 04/10/22 10:20 Lymph # (Auto) 0.9 x10E3/uL (1.00-4.8) L 04/10/22 10:20 [place] # (Auto) 0.6 x10E3/uL (0.0-0.8) 04/10/22 10:20 [...] <Electronically signed by Tez Irene MD> 04/10/22 1516 [facility] Work Phone: History general Narrative - Reported* Type Description Date Medical History COPD Medical History anxiety Medical History HTN Medical History Lung CA Surgical History Vasectomy Surgical History Right wrist surgery 2006 Surgical History Hernia repair Hospitalization History Related to My Rental Units Other Hissril general Narrative - Reported* Type Description Date Medical History COPD Medical History anxiety Medical History HTN Medical History Lung CA, small cell remission Surgical History Vasectomy Surgical History Right wrist surgery 2005 Surgical History Hernia repair Hospitalization History Related to My Rental Units Other Hospital Discharge instructionsAmbulatory Orders* Initiate Home Health Time Frame: 1 Day, Location: Determined By Patient [facility] Work Phone: Hospital Discharge instructionsAmbulatory Orders* Initiate Home Health Time Frame: 1 Day, Location: Determined By Patient * Oncology Histology Time Frame: 10/03/22, Location: Determined By Patient * Oncology Histology Time Frame: 10/17/22, Location: Determined By Patient * Oncology Histology Time Frame: 10/10/22, Location: Determined By Patient [facility] Work Phone: Progress note Author Estela Varma [facility] February 27, 2022 2:56pm Note Date/Time February 27, 2022 2 :51pm [facility] [place] [address] Hem/Onc Follow Up Note - OP Signed Patient: Kirill Echols MR#: [id number] : 1965 Acct:[id number] Age/Sex: 56 / M Type: REG RCR [...] for review. No concerns voiced. HPI: 54-year-old -Ch[place]an gentleman history of smoking 40 pack years [...] overwhelming for recurrence. He lives alone in [place]. His children live in [place]. His left him 8 months ago and [...] and urinary tract. Otherwise, there is an Vdwifd-c-Futs on the left. The lungs demonstrate emphysematous [...] He is considering moving back down to [facility] where he is from. 02/27/22 he didnt [...] for coordination of care (as documented) and zeec-uh-yhxi counseling of patient and/or family. [facility] - Medical History Medical History: Medical [...] 09/14/21 14:56 KB (Rec: 09/14/21 14:59 KB [id number]) Distress Screening Distress score of 4 or more discussed Yes with patient? Distress screening follow up: Spoke with patient via phone. Patient is doing ok at this time. Recently had a heart cath which was negative. He is happpy that his scans are good. Dr. Perez is working on getting him into [facility]. - Lab Results Diagram of Most Recent [...] by Estela Varma II, DO> 02/27/22 1456 [facility] Work Phone: Progress note Author Estela Varma [facility] April 14, 2022 12:02pm Note Date/Time April 14, 2022 1 1:50am [facility] [place] [address] Hem/Onc Follow Up Note - OP Signed Patient: Kirill Echols MR#: [id number] : 1965 Acct:[id number] Age/Sex: 56 / M Type: REG RCR [...] concerns voiced at this time. HPI: 54-year-old -Chilean gentleman history of smoking 40 pack years [...] overwhelming for recurrence. He lives alone in [place]. His children live in [place]. His left him 8 months ago and [...] and urinary tract. Otherwise, there is an Vvyudc-y-Zvli on the left. The lungs demonstrate emphysematous [...] He is considering moving back down to [facility] where he is from. 02/27/22 he didnt [...] for coordination of care (as documented) and nsia-hf-zohy counseling of patient and/or family. [facility] - Medical History Medical History: Medical [...] 03/01/22 15:44 KB (Rec: 03/01/22 15:45 KB [id number]) Distress Screening Distress score of 4 or [...] % (Auto) 71.4, Lymph % (Auto) 16.2, [place] % (Auto) 8.6, Eos % (Auto) 2.9, Baso % (Auto) 0.9, Neut # (Auto) 4.5, Lymph # (Auto) 1.0, [place] # (Auto) 0.5, Eos# (Auto) 0.2, Baso [...] by Estela Varma II, DO> 04/14/22 1202 [facility] Work Phone: Progress note Author Dixie Olivia [facility] June 22, 2022 2:24pm Note Date/Time June 22, 2022 2 :16pm [facility] [place] [address] Hem/Onc Follow Up Note - OP Signed Patient: Kirill Echols MR#: [id number] : 1965 Acct:[id number] Age/Sex: 57 / M Type: REG RCR Copies to: MD Rylan Vega MD~ Subjective Date/Time of Service: Date of Service: 06/22/2022 Time of Service: 14:09 Chief Complaint: Patient is here for a 2 month follow up with, had chest tube placed 06/16/2022. No concerns voiced at this time. HPI: 54-year-old -Ch[place]an gentleman history of smoking 40 pack years [...] overwhelming for recurrence. He lives alone in [place]. His children live in [place]. His left him 8 months ago and [...] and urinary tract. Otherwise, there is an Wmzkbz-m-Wpql on the left. The lungs demonstrate emphysematous [...] He is considering moving back down to [facility] where he is from. 02/27/22 he didnt [...] diaphoresis. No orthostasis or dizziness or palpitations. [facility] - Medical History Medical History: Medical [...] 03/01/22 15:44 KB (Rec: 03/01/22 15:45 KB [id number]) Distress Screening Distress score of 4 or [...] for coordination of care (as documented) and pshr-rh-mmnj counseling of patient and/or family. Dictated By: Dixie Olivia APRN DD/ 1409 Signed By: <Electronically signed by ERINN Olivia> 06/22/22 1424 [facility] Work Phone: Progress note Author Estela Varma [facility] September 19, 2022 10:02am Note Date/Time September 19, 2022 9:50am [facility] [place] [address] Hem/Onc Follow Up Note - OP Signed Patient: Kirill Echols MR#: [id number] : 1965 Acct:[id number] Age/Sex: 57 / M Type: REG RCR [...] Weight loss Follow Up Instructions: f/u wth HELP DESK SUPERVISOR in 6 weeks, cbc, cmp b12, folate, [...] concerns voiced at this time. HPI: 54-year-old -Chilean gentleman history of smoking 40 pack years [...] overwhelming for recurrence. He lives alone in [place]. His children live in [place]. His left him 8 months ago and [...] and urinary tract. Otherwise, there is an Rlimrp-h-Amwr on the left. The lungs demonstrate emphysematous [...] add on appointment after ER visit at [facility] on August 29, 2022 He went [...] for coordination of care (as documented) and gcax-as-hmhx counseling of patient and/or family. [facility] - Medical History Medical History: Medical [...] 03/01/22 15:44 KB (Rec: 03/01/22 15:45 KB [id number]) Distress Screening Distress score of 4 or [...] by Estela Varma II, DO> 09/19/22 1002 [facility] Work Phone: Progress note Author Estela Varma [facility] December 25, 2022 11:43am Note Date/Time December 25, 2022 11 :39am [facility] [place] [address] Hem/Onc Follow Up Note - OP Signed Patient: Kirill Echols MR#: [id number] : 1965 Acct:[id number] Age/Sex: 57 / M Type: REG RCR [...] today. No new concerns voiced. HPI: 54-year-old -Chilean gentleman history of smoking 40 pack years [...] overwhelming for recurrence. He lives alone in [place]. His children live in [place]. His left him 8 months ago and [...] and urinary tract. Otherwise, there is an Dqxmwo-z-Dtdd on the left. The lungs demonstrate emphysematous [...] add on appointment after ER visit at [facility] on August 29, 2022 He went [...] for coordination of care (as documented) and vtgw-fj-smxn counseling of patient and/or family. [facility] - Medical History Medical History: Medical [...] 03/01/22 15:44 KB (Rec: 03/01/22 15:45 KB [id number]) Distress Screening Distress score of 4 or [...] % (Auto) 70.2, Lymph % (Auto) 15.7, [place] % (Auto) 7.8, Eos % (Auto) 5.0, Baso % (Auto) 1.3, Nucleat RBC Rel Count 0.0, Neut # (Auto) 4.2, Lymph # (Auto) 0.9 L, [place] # (Auto) 0.5, Eos # (Auto) 0.3, [...] by Estela Varma II, DO> 12/25/22 1143 [facility] Work Phone: Summary Purpose Family History No [...] section and content) DATE CREATED AUTHOR 10/30/2017 [facility] DATE CREATED AUTHOR AUTHOR'S ORGANIZ ATION 05/14/2018 [facility] DATE CREATED AUTHOR AUTHOR'S ORGANIZ ATION 03/05/2020 [facility] DATE CREATED AUTHOR AUTHOR'S ORGANIZ ATION 08/07/2020 [facility] DATE CREATED AUTHOR AUTHOR'S ORGANIZ ATION 08/20/2020 [facility] DATE CREATED AUTHOR AUTHOR'S ORGANIZ ATION 12/02/2021 [facility] DATE CREATED AUTHOR AUTHOR'S ORGANIZ ATION 03/04/2022 [facility] DATE CREATED AUTHOR AUTHOR'S ORGANIZ ATION 10/23/2022 [facility] [place] [facility] DATE CREATED AUTHOR AUTHOR'S ORGANIZ ATION 09/14/2023 [facility] DATE CREATED AUTHOR AUTHOR'S ORGANIZ ATION 10/18/2023 [facility] DATE CREATED AUTHOR AUTHOR'S ORGANIZ ATION 11/02/2023 [facility] EPIC REASON FOR VISIT (unrecogniz [...] vomiting, Being set up for time @ [facility] by Dr. AndreaRef: Dr Varma- Pleural [...] Provider Active ANASTASIA Mireles-Rigo Emergency Provider Active [employer] Relationship Specialty Start Date End Date Rylan Andrea MD [address] [place] [address] PCP - General Family Medicine 10/16/22 Marilu Bonner NP [address] [place] [address] Nurse Practitioner Family Medicine 04/03/23 Nilsa Isidro NP [address] [place] [address] Nurse Practitioner Pulmonary Disease 04/03/23 Morenita Gomes, RN Registered Nurse Family Medicine 06/18/23 Sanjuana Van LSW Book Repairer Family Medicine 06/18/23 [employer] Relationship Specialty Start Date End Date Rylan Andrea MD [address] [place] [address] PCP - General Family Medicine 10/16/22 Marilu Bonner NP [address] [place] [address] Nurse Practitioner Family Medicine 04/03/23 Nilsa Isidro NP [address] [place] [address] Nurse Practitioner Pulmonary Disease 04/03/23 Morenita Gomes RN Registered Nurse Family Medicine 06/18/23 Sanjuana Van LSW Book Repairer Family Medicine 06/18/23 FOR RECORDS PERTAINING TO [...] BE BASED ON THE PRIMARY CLINICAL RECORDS. [employer] provides no warranty or guarantee of the accuracy or completeness of information in this document.
--- NOTE | 2023-11-07 04:10 | XR_ITS ---
The [address] [address] Patient Name: TONI GERBER MRN: [id number] date: 1965 Sex: M Assigned Patient Location: MS Current Patient Location: MS Accession/Order Number: [id number] Exam Date: 11/07/2023 04:20 Report Date: 11/07/2023 06:18 At the request of: GEOFFREY QUESADA Procedure: XR abdomen 1V EXAM: XR abdomen 1V HISTORY: Abdominal pain; hx of bowel obstruction, ileus COMPARISON: Abdominal x-ray, 09/08/2023. TECHNIQUE: Frontal abdominal x-ray. FINDINGS: There is moderate gas in the colon with multiple additional gas-filled mildly distended small bowel loops, not significantly changed from yesterday. There is no bowel wall thickening, pneumatosis or free air. IV contrast is noted in the urinary bladder. XR/XR abdomen 1V IMPRESSION: Nonspecific bowel gas pattern favoring a diffuse ileus, not significantly changed from yesterday. Electronically authenticated by: LOLA KING Date: 11/07/2023 06:18
[2023-11-07] MEDS: 0.9 % SODIUM CHLORIDE 1,000 ML 100 ML IV (05:06)
[2023-11-07 05:08] LABS: Adenovirus NOT DETECTED (NOT DETECTE); Bordetella parapertussis NOT DETECTED (NOT DETECTE); Coronavirus 229E NOT DETECTED (NOT DETECTE); Coronavirus HKU1 NOT DETECTED (NOT DETECTE); Coronavirus NL63 NOT DETECTED (NOT DETECTE); Coronavirus OC43 NOT DETECTED (NOT DETECTE); Human Metapneumovirus NOT DETECTED (NOT DETECTE); Human Rhinovirus/Enterovirus NOT DETECTED (NOT DETECTE); Influenza A NOT DETECTED (NOT DETECTE); Influenza B NOT DETECTED (NOT DETECTE); Mycoplasma pneumoniae NOT DETECTED (NOT DETECTE); Parainfluenza Virus 1 NOT DETECTED (NOT DETECTE); Parainfluenza Virus 2 NOT DETECTED (NOT DETECTE); Parainfluenza Virus 3 NOT DETECTED (NOT DETECTE); Parainfluenza Virus 4 NOT DETECTED (NOT DETECTE); Respiratory Syncytial Virus NOT DETECTED (NOT DETECTE); SARS-CoV-2 NOT DETECTED (NOT DETECTE)
[2023-11-07] MEDS: DICYCLOMINE HCL 10 MG CAPSULE 20 MG PO (05:11)
[2023-11-07] MEDS: ACETAMINOPHEN 1,000 MG/100 ML PREMIX 400 MG IV (05:11)
[2023-11-07 07:25] LABS: Hematocrit 35.9 % (42.0-54.0); Hemoglobin 12.7 g/dL (14.0-18.0); Mean Corpuscular HGB Conc 35.4 g/dL (29.9-35.2); Mean Corpuscular Hemoglobin 32.3 pg (25.9-34.0); Mean Corpuscular Volume 91.3 fL (80.0-94.0); Mean Platelet Volume 10.1 fL (9.5-13.5); Platelet Count 105 10^3/uL (150-450); Red Blood Count 3.93 10^6/uL (4.70-6.10); Red Cell Distribution Width 13.8 % (11.0-15.0); White Blood Count 3.3 10^3/uL (4.0-11.0)
[2023-11-07 07:36] LABS: Ammonia <10 umol/L (11-32)
[2023-11-07 07:49] LABS: Alanine Aminotransferase 37 U/L (16-63); Albumin Globulin Ratio 0.9; Albumin Level 3.3 g/dL (3.4-5.0); Alkaline Phosphatase 149 U/L (46-116); Anion Gap 17.2; Aspartate Amino Transferase 31 U/L (15-37); BUN Creatinine Ratio 5.1; Bilirubin Total 0.6 mg/dL (0.2-1.0); Calcium 8.2 mg/dL (8.5-10.1); Carbon Dioxide 19.5 mmol/L (21.0-32.0); Chloride 90 mmol/L (98-107); Estimated GFR (African America >60 (>=60); Estimated GFR (Non-African Ame >60 (>=60); Free T3 1.15 pg/mL (2.18-3.98); Globulin 3.6 g/dL; Glucose 115 mg/dL (74-106); Magnesium 1.8 mg/dL (1.8-2.4); Potassium 4.7 mmol/L (3.5-5.1); Thyroid Stimulating Hormone 0.079 uIU/mL (0.358-3.740); Total Protein 6.9 g/dL (6.4-8.2)
--- NOTE | 2023-11-07 08:01 | CT_ITS ---
[address] [address] Patient Name: TONI GERBER MRN: [id number] date: 1965 Sex: M Assigned Patient Location: MS Current Patient Location: MS Accession/Order Number: [id number] Exam Date: 11/07/2023 09:28 Report Date: 11/07/2023 10:29 At the request of: LUH STRONG Procedure: CT abdomen pelvis wo con EXAMINATION: CT abdomen pelvis wo con HISTORY: severe upper abd tenderness with rebound tendernes COMPARISON: No relevant comparison available. TECHNIQUE: Axial, Coronal, and Sagittal images were created without IV contrast. Dose reduction techniques were achieved by using automated exposure control and/or adjustment of mA and/or kV according to patient size and/or use of iterative reconstruction technique. FINDINGS: LUNG BASES: Right lung volume loss. Right pleural thickening. LIVER: No enlargement, atrophy, abnormal density, or significant focal lesion. BILIARY: Hyperdensity within the gallbladder possibly excretion of contrast. No CT evidence of acute cholecystitis PANCREAS: Moderate diffuse atrophy. SPLEEN: No enlargement or focal lesion. ADRENALS: No mass or enlargement. KIDNEYS: No mass, obstruction, or calcification. BOWEL/MESENTERY: Some mild dilation and contrast filling of small bowel loops in the abdomen and pelvis with additional nondistended small bowel loops. AORTA/VASCULAR: No aortic aneurysm. Mild calcific atherosclerosis RETROPERITONEUM: No mass or adenopathy. LYMPH NODES: No adenopathy. URINARY BLADDER: Moderate distention PELVIC ORGANS: No visible mass. Pelvic organs appropriate for patient age. ABDOMINAL WALL: No mass or hernia. BONES: No bony lesion or fracture. OTHER: Negative. CT/CT abdomen pelvis wo con IMPRESSION: Mild asymmetric distention of small bowel loops, ileus versus developing small bowel obstruction. Continued surveillance recommended to evaluate passage of contrast Electronically authenticated by: MARCE GOULD Date: 11/07/2023 10:29
[2023-11-07 08:02] LABS: Sodium 122 mmol/L (136-145)
[2023-11-07 08:05] LABS: Lymphocytes Absolute Manual 0.39 10^3/uL (1.20-3.80); Target Cells 1+
--- NOTE | 2023-11-07 08:15 | P.HP_ITS ---
HPI H&P: HPI History of Present Illness Chief complaint: Shortness of Breath Narrative: Pt presented to the ER with increaseing YEN, Cough, productive of sputum, tachycardia, uncontrolled high blood pressure found to have right lower lobe pneumonia, Patient also with significant abdominal pain, questionable ileus, exam findings below were consistent with significant abnormality. When I saw patient up on the medical surgical floor, he was not resting comfortably, moderate pain. Worse with palpation. Breathing he states felt better Opioid HPI Opioid Management Most Recent Pain and Opioid Data: Last Pain Scale 4 11/07/23 12:00 Last Pain Assessment 11/07/23 12:00 Last MAR Pain Assessment 11/07/23 05:11 Last ORT Total Score 0 11/07/23 04:08 Last ORT Risk Category Low Risk 11/07/23 04:08 [facility] Medical History (Updated 11/07/23 @ 14:32 by Jerry Mcdonnell MD) Costochondritis ?M94.0 - Chondrocostal junction syndrome [[place]ze] (ICD-10) Hyponatremia ?E87.1 - Hypo-osmolality and hyponatremia (ICD-10) Partial small bowel obstruction ?K56.600 - Partial intestinal obstruction, unspecified as to cause (ICD-10) Insomnia ?G47.00 - Insomnia, unspecified (ICD-10) Hypothyroidism ?E03.9 - Hypothyroidism, unspecified (ICD-10) Lung cancer ?C34.90 - Malignant neoplasm of unspecified part of unspecified bronchus or lung (ICD-10) Hypertension ?I10 - Essential (primary) hypertension (ICD-10) Surgical History H/O vasectomy ?Z98.52 - Vasectomy status (ICD-10) Family History Father Family history of cancer Family history of COPD (chronic obstructive pulmonary disease) Mother Family history of diabetes mellitus Family history of COPD (chronic obstructive pulmonary disease) Brother Family history of diabetes mellitus Sister Family history of diabetes mellitus Social History Within the past year, how often did you have a drink containing alcohol: 4 or more times a week Smoking status: Light tobacco smoker Non-prescribed substance use: cannabis (any form) Highest level of school completed/degree received: 12th grade, no diploma Meds Home Medications and Allergies Home Medications ?Medication ?Instructions ?Recorded ?Confirmed ?Type aspirin 81 mg tablet,delayed 81 mg PO QDAY 01/02/23 11/07/23 History release folic acid 1 mg tablet 1 mg PO QDAY 01/02/23 11/07/23 History quetiapine 100 mg tablet 100 mg PO .COMPLEX 01/02/23 11/07/23 History cyanocobalamin (vitamin B-12) 1,000 mcg PO .QD 11/06/23 11/07/23 History 1,000 mcg tablet (Vitamin B-12) fluticasone 250 mcg-salmeterol 50 1 inh inhalation Q12H 11/06/23 11/07/23 History mcg/dose blistr powdr for inhalation ketorolac 0.5 % eye drops 1 drp ophthalmic (eye) BID 11/06/23 11/07/23 History melatonin 3 mg tablet 3 mg PO .QHS PRN sleep 11/06/23 11/07/23 History prednisolone acetate 1 % eye 1 drp ophthalmic (eye) QID 11/06/23 11/07/23 History drops,suspension levothyroxine 100 mcg capsule 100 mcg PO .ACB 11/07/23 11/07/23 History Allergies Allergy/AdvReac Type Severity Reaction Status Date / Time No Known Drug Allergies Allergy Verified 09/06/23 10:07 Exam Constitutional Vital Signs, click to edit/add: Last Vital Signs Temp 98.1 F 11/07/23 04:08 Pulse 96 H 11/07/23 07:00 Resp 18 11/07/23 04:08 BP 149/88 H 11/07/23 04:08 Pulse Ox 96 11/07/23 04:08 O2 Del Method Room Air 11/07/23 04:08 O2 Flow Rate 2 11/07/23 00:01 Documenting provider has reviewed patient's vital signs: yes Common normals: no apparent distress Chest Common normals: inspection of chest normal Respiratory Common normals: no use of accessory muscles; abnormal respiratory effort (Mild conversational dyspnea) Auscultation: rhonchi, wheezes and diminished lung sounds GI Common normals: Normal to inspection, nondistended, normoactive bowel sounds present; negative for soft to palpation and tender Palpation: tender (Diffusely tender with positive rebound tenderness) Results Labs Labs: Short CBC 11/06/23 11/07/23 Range/Units 23:30 07:13 WBC 4.9 3.3 L (4.0-11.0) 10^3/uL Hgb 14.1 12.7 L (14.0-18.0) g/dL Hct 39.5 L 35.9 L (42.0-54.0) % Plt Count 116 L 105 L (150-450) 10^3/uL BMP 11/06/23 11/07/23 23:30 07:13 Sodium 123 L* 122 L* Potassium 3.8 4.7 Chloride 89 L 90 L Carbon Dioxide 23.1 19.5 L BUN 5.0 L 4.0 L Creatinine 0.90 0.78 Glucose 81 115 H Calcium 9.0 8.2 L Liver Function 11/06/23 11/07/23 Range/Units 23:30 07:13 Total Bilirubin 0.9 0.6 (0.2-1.0) mg/dL AST 42 H 31 (15-37) U/L ALT 39 37 (16-63) U/L Alkaline Phosphatase 178 H 149 H (46-116) U/L Albumin 3.9 3.3 L (3.4-5.0) g/dL Assessment and Plan Assessment and Plan (1) Adult failure to thrive: (2) Acute hyponatremia: (3) Acute exacerbation of chronic obstructive pulmonary disease (COPD): Plan Acute exacerbation of COPD with sinus tachycardia and uncontrolled hypertension, acute hypoxia, does not normally require oxygen and is currently on 3 L, this is likely secondary to acute bronchitis with possible right lower lobe pneumonia on top of that. Aerosol treatments, IV antibiotics, try to obtain sputum culture. Severe abdominal tenderness on exam and abdominal pain. History of ileus. Concern for more obstructive. Check CT scan. Unable to do with contrast secondary to CTA that was completed earlier. Will do without today, may need to repeat with contrast tomorrow. Antibiotics for the above may cover any intra- abdominal infectious etiology like diverticulitis Severe hyponatremia-he was on fluids overnight and his sodium is actually lower, will check urine sodium, 3% saline 500 cc over 10 hours Iron deficiency anemia-somewhat worse today, will check stool for occult blood Elevated liver function test-somewhat improved today, check on CT results Neutropenia-likely related to the infectious etiology as outlined above Thrombocytopenia-deteriorated today compared to yesterday, monitor daily History of small cell lung CA-CTA chest did not demonstrate any mass or lymphadenopathy Hypothyroidism-patient states he is having trouble taking the medication-will check levels Generalized anxiety disorder-continuously to add to the Admission status: With the severe exacerbation of his COPD secondary to right lower lobe pneumonia, and the acute abdominal findings, medically necessary treatment will span 2 midnights. Inpatient status.
--- NOTE | 2023-11-07 08:25 | CM.NOTE ---
Rounds made with Dr. Mcdonnell. Dr. Mcdonnell reviews plan of care-will order CT abd without contrast for continued abdominal pain. Also need stool sample. Mr. Echols verbalizes understanding.
[2023-11-07] MEDS: METHYLPREDNISOLONE SOD SUCC PF 125 MG/2 ML VIAL 60 MG IVP ×3 (09:16→21:11)
[2023-11-07] MEDS: PANTOPRAZOLE SODIUM 40 MG VIAL IV (09:17)
[2023-11-07] MEDS: L. ACIDOPHILUS/L.BULGARICUS 1 PACKET GRAN.PACK PO ×2 (09:17→21:10)
[2023-11-07] MEDS: LIOTHYRONINE SODIUM 5 MCG TABLET 10 MCG PO (09:17)
[2023-11-07] MEDS: QUETIAPINE FUMARATE 100 MG TABLET PO (09:17)
[2023-11-07 09:29] LABS: Lactate/Lactic Acid 1.4 mmol/L (0.4-2.0)
[2023-11-07] MEDS: BUDESONIDE 0.5 MG/2 ML AMPULE NEB IH ×2 (10:47→20:48)
[2023-11-07] MEDS: IPRATROPIUM/ALBUTEROL SULFATE 3 ML AMPUL.NEB IH ×3 (10:48→20:48)
[2023-11-07 11:07] LABS: Bilirubin Urine NEGATIVE (NEGATIVE); Blood Urine NEGATIVE (NEGATIVE); Clarity Urine CLEAR (CLEAR); Color Urine YELLOW (YELLOW); Glucose Urine UA NEGATIVE (NEGATIVE); Ketones Urine 40 mg/dL (NEGATIVE); Leukocyte Esterase Urine NEGATIVE (NEGATIVE); Nitrite Urine NEGATIVE (NEGATIVE); Protein Urine NEGATIVE (NEG/TRACE); Specific Gravity Urine <=1.005 (1.005-1.025)
[2023-11-07 11:39] LABS: Bacteria Urine TRACE #/HPF (NONE SEEN); Cast Seen? NONE SEEN #/LPF (NONE SEEN); Crystals Seen? None Seen #/HPF (None Seen); Mucus Urine NONE SEEN (NONE SEEN); RBC Urine 0-2 #/HPF (0-2); Squamous Epithelial Cell Urine FEW #/LPF (NONE/RARE); Urine Culture Indicated ALREADY ORDERED; WBC Urine 0-2 #/HPF (NONE SEEN)
[2023-11-07] MEDS: SODIUM CHLORIDE 3 % 500 ML 50 ML IV (11:47)
[2023-11-07 11:52] LABS: Sodium Urine Random 7 mmol/L (30-90)
--- NOTE | 2023-11-07 12:46 | SWNOTE1 ---
SHAUNA met with pt to discuss dc needs. Pt lives at home by himself. SW asked pt about and being on his 's insurance. He voiced that she works for the [employer] and they were in some kind if agreement for a pay out with the understanding that if work becomes available then she will have to go not matter where it was. Rosa ended up having a job in [place]. He voiced she has been there for nearly 5 years and has about 2 1/2 years left before skilled nursing. He does not have any other support in this area, rest of his family is in [place]. He lives upstairs in an apartment, has about 15 steps to go up. He uses a cane. SW and pt spoke about pt going to a longterm facility for rehab for a short time. Pt is agreeable to go and prefers to stay in [place]. SW offered medicare.gov star rating list, but pt again voiced anywhere in [place]. SHAUNA called [facility], but they do not have any male beds open. SHAUNA called over to [employer] and they requested for SW to send referral so they can run benefits. Referral sent to [employer]. Referral included face sheet, ED note, H&P, provider notes, case management report, nursing notes, diagnostic imaging, med list, and PT/OT notes.
[2023-11-07] MEDS: HYOSCYAMINE SULFATE 0.125 MG TAB.SUBL 0.25 MG SL ×3 (13:00→21:11)
[2023-11-07] MEDS: PIPERACILLIN SODIUM/TAZOBACTAM 3.375 GM in 0.9 % SODIUM CHLORIDE 50 ML IV ×2 (13:01→21:10)
[2023-11-07] MEDS: PREDNISOLONE ACETATE OP 1% SUSP 100 DROPS/5 ML 1 DROP OP ×3 (14:04→21:12)
[2023-11-07] MEDS: KETOROLAC TROMETHAMINE 0.5% OP SOL 100 DROP/5 ML BOTTLE OP ×2 (14:04→21:12)
--- NOTE | 2023-11-07 14:34 | SWNOTE1 ---
[facility] can accept and they will start precert once H&P is completed.
--- NOTE | 2023-11-07 14:57 | SWNOTE1 ---
SHAUNA sent over H&P to Silvia at [facility].
[2023-11-07] MEDS: ACETAMINOPHEN 500 MG TABLET 1000 MG PO ×2 (15:03→21:11)
[2023-11-07] MEDS: QUETIAPINE FUMARATE 100 MG TABLET 200 MG PO (21:10)
[2023-11-08] VITALS (19 sets, daily range): BP systolic 117–133; BP diastolic 62–73; PULSE 84–114; TEMP 36.4–36.7; O2SAT 93–99
[2023-11-08] MEDS: METHYLPREDNISOLONE SOD SUCC PF 125 MG/2 ML VIAL 60 MG IVP ×2 (03:02→09:32)
[2023-11-08] MEDS: 0.9 % SODIUM CHLORIDE 1,000 ML 100 ML IV ×2 (03:08→19:42)
[2023-11-08] MEDS: IPRATROPIUM/ALBUTEROL SULFATE 3 ML AMPUL.NEB IH ×4 (04:29→20:50)
[2023-11-08] MEDS: PIPERACILLIN SODIUM/TAZOBACTAM 3.375 GM in 0.9 % SODIUM CHLORIDE 50 ML IV ×3 (05:37→21:18)
[2023-11-08] MEDS: PREDNISOLONE ACETATE OP 1% SUSP 100 DROPS/5 ML 1 DROP OP ×4 (05:37→21:16)
[2023-11-08] MEDS: HYOSCYAMINE SULFATE 0.125 MG TAB.SUBL 0.25 MG SL ×4 (05:38→21:16)
[2023-11-08 05:47] LABS: Basophils Percent Auto 0.1 % (0.2-2.0); Hematocrit 32.8 % (42.0-54.0); Hemoglobin 11.2 g/dL (14.0-18.0); Immature Granulocytes Abs Auto 0.02 10^3/uL (0.00-0.03); Immature Granulocytes Pct Auto 0.3 % (0.0-0.5); Lymphocytes Absolute Auto 0.3 10^3/uL (1.2-3.8); Lymphocytes Percent Auto 3.8 % (20.5-60.0); Mean Corpuscular HGB Conc 34.1 g/dL (29.9-35.2); Mean Corpuscular Hemoglobin 32.1 pg (25.9-34.0); Monocytes Absolute Auto 0.5 10^3/uL (0.3-0.8); Monocytes Percent Auto 6.4 % (1.7-12.0); Neutrophils Percent Auto 89.4 % (43.0-75.0); Platelet Count 99 10^3/uL (150-450); Red Blood Count 3.49 10^6/uL (4.70-6.10); Red Cell Distribution Width 14.4 % (11.0-15.0); White Blood Count 7.8 10^3/uL (4.0-11.0)
[2023-11-08 06:09] LABS: Alanine Aminotransferase 29 U/L (16-63); Albumin Globulin Ratio 0.9; Albumin Level 3.1 g/dL (3.4-5.0); Alkaline Phosphatase 110 U/L (46-116); Anion Gap 15.6; Aspartate Amino Transferase 18 U/L (15-37); BUN Creatinine Ratio 13.1; Bilirubin Total 0.4 mg/dL (0.2-1.0); Calcium 8.3 mg/dL (8.5-10.1); Carbon Dioxide 16.8 mmol/L (21.0-32.0); Chloride 98 mmol/L (98-107); Estimated GFR (African America >60 (>=60); Estimated GFR (Non-African Ame >60 (>=60); Globulin 3.4 g/dL; Glucose 212 mg/dL (74-106); Potassium 4.4 mmol/L (3.5-5.1); Sodium 126 mmol/L (136-145); Total Protein 6.5 g/dL (6.4-8.2)
--- NOTE | 2023-11-08 08:22 | P.PN_ITS ---
Progress Note: Subjective Subjective Interval history: He states he feels much better than previous day. Definitely looks better than the previous day. Exam Constitutional Vital Signs, click to edit/add: Last Vital Signs Temp 97.5 F L 11/08/23 04:00 Pulse 95 H 11/08/23 08:00 Resp 18 11/08/23 04:29 BP 133/62 11/08/23 04:00 Pulse Ox 96 11/08/23 04:29 O2 Del Method Room Air 11/08/23 04:29 O2 Flow Rate 2 11/07/23 10:48 Documenting provider has reviewed patient's vital signs: yes Common normals: no apparent distress Chest Common normals: inspection of chest normal Respiratory Common normals: normal respiratory effort (Resolved conversational dyspnea) and no use of accessory muscles Auscultation: rhonchi (Better air exchange) and diminished lung sounds; no wheezes (Just had breathing treatment) GI Common normals: Normal to inspection, nondistended, normoactive bowel sounds present; negative for soft to palpation and tender Palpation: tender (No rebound tenderness today) Progress Note: Objective Labs Labs: Short CBC 11/08/23 Range/Units 05:23 WBC 7.8 (4.0-11.0) 10^3/uL Hgb 11.2 L (14.0-18.0) g/dL Hct 32.8 L (42.0-54.0) % Plt Count 99 L (150-450) 10^3/uL BMP 11/08/23 05:23 Sodium 126 L Potassium 4.4 Chloride 98 Carbon Dioxide 16.8 L BUN 11.0 Creatinine 0.84 Glucose 212 H Calcium 8.3 L Liver Function 11/08/23 Range/Units 05:23 Total Bilirubin 0.4 (0.2-1.0) mg/dL AST 18 (15-37) U/L ALT 29 (16-63) U/L Alkaline Phosphatase 110 (46-116) U/L Albumin 3.1 L (3.4-5.0) g/dL Urine 11/07/23 Range/Units 10:25 Urine Color Yellow (YELLOW) Urine Clarity Clear (CLEAR) Urine pH 7.0 (5.0-9.0) Ur Specific [place] <=1.005 A (1.005-1.025) Urine Protein Negative (NEG/TRACE) mg/dL Urine Glucose (UA) Negative (NEGATIVE) mg/dL Progress Note: A&P Assessment and Plan (1) Adult failure to thrive: (2) Acute hyponatremia: (3) Acute exacerbation of chronic obstructive pulmonary disease (COPD): Plan Admission findings: Acute exacerbation of COPD with sinus tachycardia and uncontrolled hypertension, acute hypoxia, does not normally require oxygen and is currently on 3 L, this is likely secondary to acute bronchitis with possible right lower lobe pneumonia on top of that. Aerosol treatments, IV antibiotics, try to obtain sputum culture.-Try to wean off of supplemental oxygen today for possible discharge tomorrow Severe abdominal tenderness on exam and abdominal pain. History of ileus. Concern for more obstructive. Repeat CT scan today with IV contrast. Follow-up on CT scan from yesterday, may not need oral contrast, abdominal exam is slightly better as he is no longer has rebound tenderness Severe hyponatremia-better with the 3% given yesterday. Still low. Repeat 3% again today, urine sodium pending Iron deficiency anemia with positive occult blood from acute upper g astrointestinal bleeding resulting in acute upper gastrointestinal blood loss anemia. Monitor blood count daily. May need endoscopy as an outpatient. Elevated liver function test-somewhat improved today, check on CT results later today Neutropenia-likely related to the infectious etiology as outlined above Thrombocytopenia-continue to monitor History of small cell lung CA-CTA chest did not demonstrate any mass or lymphadenopathy Hypothyroidism-patient states he is having trouble taking the medication- adjusted medications Generalized anxiety disorder-Home medications Mild protein calorie malnutrition-diet supplement Admission status: With the severe exacerbation of his COPD secondary to right lower lobe pneumonia, and the acute abdominal findings, medically necessary treatment will span 2 midnights. Inpatient status. ?
--- NOTE | 2023-11-08 08:47 | CT_ITS ---
[address] [address] Patient Name: TONI GERBER MRN: [id number] date: 1965 Sex: M Assigned Patient Location: [place] Current Patient Location: [place] Accession/Order Number: [id number] Exam Date: 11/08/2023 08:38 Report Date: 11/08/2023 09:02 At the request of: LUH STRONG Procedure: CT abdomen pelvis w con EXAMINATION: CT abdomen pelvis w con HISTORY: Left upper abd tenderness COMPARISON: 09/06/2023, 11/07/2023 TECHNIQUE: CT images were created with IV contrast. Axial, Coronal, and Sagittal images. Dose reduction techniques were achieved by using automated exposure control and/or adjustment of mA and/or kV according to patient size and/or use of iterative reconstruction technique. FINDINGS: LUNG BASES: Right lung volume loss. Mild patchy infiltrates, atelectasis favored LIVER: No enlargement, atrophy, abnormal density, or significant focal lesion. BILIARY: No visible dilatation or calcification. PANCREAS: Pancreatic calcifications SPLEEN: No enlargement or focal lesion. ADRENALS: No mass or enlargement. KIDNEYS: No mass, obstruction, or calcification. BOWEL/MESENTERY: Fluid filling of small bowel loops partially decompressing the prior exam with passage of oral contrast now in the right colon also opacifying a normal-appearing appendix AORTA/VASCULAR: No aortic aneurysm. Calcific atherosclerosis RETROPERITONEUM: No mass or adenopathy. LYMPH NODES: No adenopathy. URINARY BLADDER: No visible focal wall thickening, lesion, or calculus. PELVIC ORGANS: No visible mass. Pelvic organs appropriate for patient age. ABDOMINAL WALL: No mass or hernia. BONES: No bony lesion or fracture. OTHER: Negative. CT/CT abdomen pelvis w con IMPRESSION: Progression of oral contrast through the small bowel canal within the ascending colon with partial decompression of small bowel loops Electronically authenticated by: MARCE GOULD Date: 11/08/2023 09:02
[2023-11-08] MEDS: SODIUM CHLORIDE 3 % 500 ML 50 ML IV (09:32)
[2023-11-08] MEDS: PANTOPRAZOLE SODIUM 40 MG VIAL IV (09:32)
[2023-11-08] MEDS: LIOTHYRONINE SODIUM 5 MCG TABLET 10 MCG PO (09:32)
[2023-11-08] MEDS: QUETIAPINE FUMARATE 100 MG TABLET PO (09:33)
[2023-11-08] MEDS: L. ACIDOPHILUS/L.BULGARICUS 1 PACKET GRAN.PACK PO ×2 (09:33→21:16)
[2023-11-08] MEDS: KETOROLAC TROMETHAMINE 0.5% OP SOL 100 DROP/5 ML BOTTLE OP ×2 (09:33→21:16)
--- NOTE | 2023-11-08 09:37 | SWNOTE1 ---
SW received email from Silvia [facility] and pt is approved to go. SHAUNA let doctor know and pt will not discharge today, hopeful for tomorrow.
--- NOTE | 2023-11-08 10:27 | REH.PTDLY ---
Physical Therapy Daily Note PT Daily Note/Assess Start: 11/08/23 10:19 Freq: Status: Active Protocol: Document 11/08/23 10:19 KARIME (Rec: 11/08/23 10:26 KARIME [id number]) Physical Therapy Daily Note/Assessment Time In 09:52 Time Out 10:16 Subjective Pt reports stomach is bothersome still. Supposed to go to rehab when I leave here, however pt reports he needs to be home by November 11 to pay his bills. Therapeutic Exercise Minutes (minutes) 8 Therapeutic Exercise Units 1 Therapeutic Exercise Treatment Instructed in APs with legs elevated 15x. Adonis SLR 10x ea. Seated Adonis LE LAQ, marching, hip abd slides 10x ea for strength. Pt gets SOB with exs . Therapeutic Activity Minutes (minutes) 15 Therapeutic Activity Units 1 Chair Transfer Ability Independent Therapeutic Activity Comments Pt performs sit to stand transfers Ind. Gait training with SC and pt pushing IV pole 175 feet x2 with seated rest break. Pt has some SOB, but SpO2 maintains at 97%. Total Therapy Minutes 23 Total Physical Therapy Units 2 Daily Note Summary Pt does very well with gait training today with some SOB noted, but not debilitating. Pt ambulates much further today. Stomach still bothersome per pt. Focus on progressing exs and reps next visit as these seem to be more tiring for pt. Pt could benefit from repetitive stair training as well as he has several at home to navigate.
--- NOTE | 2023-11-08 11:22 | CM.NOTE ---
Rounds made with Dr. Mcdonnell. Dr Mcdonnell discussed labs and plan of care with Kirill. Kirill verbalized understanding. Kirill gresham abd pain today.. Plan is to get CT scan due to L sided abd tenderness. Discharge Plan is for SNF at the [facility]. No discharge planned today.
[2023-11-08] MEDS: BUDESONIDE 0.5 MG/2 ML AMPULE NEB IH ×2 (11:46→20:50)
[2023-11-08 11:50] LABS: Glucometer 241 mg/dL (74-106)
[2023-11-08] MEDS: INSULIN ASPART 300 UNIT/3 ML PEN SUBQ (12:18)
--- NOTE | 2023-11-08 15:13 | SWNOTE1 ---
SHAUNA stopped in and spoke to pt about [facility] and possible discharge tomorrow. Pt voiced that the doctor mentioned it this morning. Pt did mention he is hoping to be home by the first november so he can pay bills. SHAUNA did recommend to pt that he should stay at [facility] to get stronger as long as it takes, whether it only be a few days or maybe a few weeks. Pt voiced he is really hoping to do well and get out quickly. Pt is still wanting to go to SNF. SHAUNA sent updated physician notes and therapy notes to [facility].
[2023-11-08 16:06] LABS: Internal Control Within Normal Limits; Occult Blood Negative
[2023-11-08 17:13] LABS: Glucometer 185 mg/dL (74-106)
[2023-11-08] MEDS: QUETIAPINE FUMARATE 100 MG TABLET 200 MG PO (21:16)
[2023-11-08 21:25] LABS: Glucometer 148 mg/dL (74-106)
[2023-11-09] VITALS (9 sets, daily range): BP systolic 129–131; BP diastolic 59–77; PULSE 82–100; TEMP 36.4; O2SAT 91–97
[2023-11-09] MEDS: IPRATROPIUM/ALBUTEROL SULFATE 3 ML AMPUL.NEB IH ×2 (04:47→11:17)
[2023-11-09] MEDS: HYOSCYAMINE SULFATE 0.125 MG TAB.SUBL 0.25 MG SL ×2 (05:15→12:08)
[2023-11-09] MEDS: PIPERACILLIN SODIUM/TAZOBACTAM 3.375 GM in 0.9 % SODIUM CHLORIDE 50 ML IV ×2 (05:16→12:08)
[2023-11-09] MEDS: 0.9 % SODIUM CHLORIDE 1,000 ML 100 ML IV (05:16)
[2023-11-09] MEDS: PREDNISOLONE ACETATE OP 1% SUSP 100 DROPS/5 ML 1 DROP OP ×2 (05:19→12:08)
[2023-11-09 05:28] LABS: Basophils Percent Auto 0.1 % (0.2-2.0); Hematocrit 31.2 % (42.0-54.0); Hemoglobin 10.7 g/dL (14.0-18.0); Immature Granulocytes Abs Auto 0.03 10^3/uL (0.00-0.03); Immature Granulocytes Pct Auto 0.3 % (0.0-0.5); Lymphocytes Absolute Auto 0.8 10^3/uL (1.2-3.8); Lymphocytes Percent Auto 8.8 % (20.5-60.0); Mean Corpuscular HGB Conc 34.3 g/dL (29.9-35.2); Mean Corpuscular Hemoglobin 31.8 pg (25.9-34.0); Mean Corpuscular Volume 92.9 fL (80.0-94.0); Mean Platelet Volume 10.6 fL (9.5-13.5); Monocytes Absolute Auto 0.8 10^3/uL (0.3-0.8); Neutrophils Absolute Auto 7.7 10^3/uL (1.4-6.5); Neutrophils Percent Auto 81.8 % (43.0-75.0); Platelet Count 101 10^3/uL (150-450); Red Blood Count 3.36 10^6/uL (4.70-6.10); Red Cell Distribution Width 14.3 % (11.0-15.0); White Blood Count 9.4 10^3/uL (4.0-11.0)
[2023-11-09 05:46] LABS: Alanine Aminotransferase 27 U/L (16-63); Alkaline Phosphatase 89 U/L (46-116); Anion Gap 13.1; Aspartate Amino Transferase 16 U/L (15-37); BUN Creatinine Ratio 10.8; Bilirubin Total 0.2 mg/dL (0.2-1.0); Calcium 8.5 mg/dL (8.5-10.1); Carbon Dioxide 21.6 mmol/L (21.0-32.0); Chloride 104 mmol/L (98-107); Estimated GFR (African America >60 (>=60); Estimated GFR (Non-African Ame >60 (>=60); Glucose 109 mg/dL (74-106); Potassium 3.7 mmol/L (3.5-5.1); Sodium 135 mmol/L (136-145)
[2023-11-09] MEDS: L. ACIDOPHILUS/L.BULGARICUS 1 PACKET GRAN.PACK PO (08:33)
[2023-11-09] MEDS: PANTOPRAZOLE SODIUM 40 MG VIAL IV (08:33)
[2023-11-09] MEDS: KETOROLAC TROMETHAMINE 0.5% OP SOL 100 DROP/5 ML BOTTLE OP (08:33)
[2023-11-09] MEDS: LIOTHYRONINE SODIUM 5 MCG TABLET 10 MCG PO (08:33)
[2023-11-09] MEDS: METHYLPREDNISOLONE SOD SUCC PF 125 MG/2 ML VIAL 60 MG IVP ×2 (08:33→13:26)
[2023-11-09] MEDS: QUETIAPINE FUMARATE 100 MG TABLET PO (08:34)
--- NOTE | 2023-11-09 10:27 | P.DS_ITS ---
DS: Providers Provider Date of admission: 11/07/23 04:00 Primary care physician: DANNA QURESHI Consults: 11/07/23 Consult to Dietitian Routine Reason for consultation: malnutrition scoring Has provider been notified: No 11/07/23 06:53 Consult to Pharmacy Routine Consulting Provider: Reason for consultation: Please [place] me when Med Rec is Updated Has provider been notified: No Occupational Therapy Eval and Treat Routine Reason for consultation: Only if needed for Rehab Has provider been notified: No Physical Therapy Eval and Treat Routine Reason for consultation: Eval and Treat Has provider been notified: No 11/07/23 09:00 Occupational Therapy Eval and Treat Routine Reason for consultation: Weakness Has provider been notified: No Physical Therapy Eval and Treat Routine Reason for consultation: Weakness DS: Diagnosis Discharge Diagnosis (1) Adult failure to thrive: (2) Acute hyponatremia: (3) Acute exacerbation of chronic obstructive pulmonary disease (COPD): Plan Admission findings: Acute exacerbation of COPD with sinus tachycardia and uncontrolled hypertension, acute hypoxia, does not normally require oxygen and is currently on 3 L, this is likely secondary to acute bronchitis with possible right lower lobe pneumonia on top of that. Improving at the time of discharge Severe abdominal tenderness on exam and abdominal pain. History of ileus. Improving at the time of discharge Severe hyponatremia-after 1000 cc over 2 days with 3% saline, improved at the time of discharge urine sodium is still pending Iron deficiency anemia with positive occult blood from acute upper gastrointestinal bleeding resulting in acute upper gastrointestinal blood loss anemia. Stable at the time of discharge Elevated liver function test-of discharge Neutropenia-likely related to the infectious etiology as outlined above Thrombocytopenia-continue to monitor History of small cell lung CA-CTA chest did not demonstrate any mass or lymphadenopathy Hypothyroidism-patient states he is having trouble taking the medication- adjusted medications Generalized anxiety disorder-Home medications Mild protein calorie malnutrition-diet supplement Admission status: With the severe exacerbation of his COPD secondary to right lower lobe pneumonia, and the acute abdominal findings, medically necessary treatment will span 2 midnights. Inpatient status. ? ? DS: Summary Hospital Course Hospital Course: Patient with presented to the emergency room with increasing shortness of breath. Found to have acute exacerbation of COPD secondary to pneumonia. Treated with IV antibiotics and aerosol treatments. When I examined the patient he had significant left-sided upper abdominal point tenderness. With positive rebound tenderness. CT scan without contrast showed possible ileus. CT scan completed the following day showed same but progression of material through the colon. On the day of discharge his abdominal exam is much improved from previous days. His lung exam was much improved from previous days. He is medically stable for discharge to rehab today. Medications see list. Follow-up with PCP discharge from rehab. Status at Discharge Overall status at discharge: patient is not back to baseline Time Spent with Patient Time attestation: Total time spent providing and/or coordinating discharge services: Time spent: greater than 30 minutes Exam Constitutional Vital Signs, click to edit/add: Last Vital Signs Temp 97.6 F 11/09/23 08:20 Pulse 86 11/09/23 10:00 Resp 16 11/09/23 08:20 BP 131/75 11/09/23 08:20 Pulse Ox 91 L 11/09/23 08:20 O2 Del Method Room Air 11/09/23 08:20 O2 Flow Rate 2 11/07/23 10:48 Documenting provider has reviewed patient's vital signs: yes Common normals: no apparent distress Chest Common normals: inspection of chest normal Respiratory Common normals: normal respiratory effort (Resolved conversational dyspnea) and no use of accessory muscles Auscultation: rhonchi (Minimal rhonchi today much improved) and diminished lung sounds; no wheezes (Just had breathing treatment) GI Common normals: Normal to inspection, nondistended, normoactive bowel sounds present; negative for soft to palpation and tender Palpation: tender (No rebound tenderness, tenderness much improved) DS: Data Data Completed and Pending Labs on day of discharge: Labs from last 24 hours 11/09/23 11/08/23 11/08/23 04:44 21:25 17:12 WBC 9.4 RBC 3.36 L Hgb 10.7 L Hct 31.2 L MCV 92.9 MCH 31.8 MCHC 34.3 RDW 14.3 Plt Count 101 L MPV 10.6 Neut % (Auto) 81.8 H Lymph % (Auto) 8.8 L [place] % (Auto) 9.0 Eos % (Auto) 0.0 L Baso % (Auto) 0.1 L Neut # (Auto) 7.7 H Lymph # (Auto) 0.8 L [place] # (Auto) 0.8 Eos # (Auto) 0.0 Baso # (Auto) 0.0 Abs Immat Gran (auto) 0.03 Imm/Tot Granulo (auto) 0.3 Sodium 135 L Potassium 3.7 Chloride 104 Carbon Dioxide 21.6 Anion Gap 13.1 BUN 9.0 Creatinine 0.83 Est GFR ( Amer) >60 Est GFR (Non-Af Amer) >60 BUN/Creatinine Ratio 10.8 Glucose 109 H Calcium 8.5 Total Bilirubin 0.2 AST 16 ALT 27 Alkaline Phosphatase 89 Total Protein 6.0 L Albumin 3.0 L Globulin 3.0 Albumin/Globulin Ratio 1.0 Stool Occult Blood POC Glucose 148 H 185 H 11/08/23 11/08/23 14:15 11:49 WBC RBC Hgb Hct MCV MCH MCHC RDW Plt Count MPV Neut % (Auto) Lymph % (Auto) [place] % (Auto) Eos % (Auto) Baso % (Auto) Neut # (Auto) Lymph # (Auto) [place] # (Auto) Eos # (Auto) Baso # (Auto) Abs Immat Gran (auto) Imm/Tot Granulo (auto) Sodium Potassium Chloride Carbon Dioxide Anion Gap BUN Creatinine Est GFR ( Amer) Est GFR (Non-Af Amer) BUN/Creatinine Ratio Glucose Calcium Total Bilirubin AST ALT Alkaline Phosphatase Total Protein Albumin Globulin Albumin/Globulin Ratio Stool Occult Blood Negative POC Glucose 241 H Preliminary micro results at discharge 11/06/23 23:30 - Preliminary Blood NO GROWTH AT 36-48 HOURS. FINAL TO FOLLOW. 11/06/23 23:26 Blood Culture Result 1 - Preliminary Blood NO GROWTH AT 36-48 HOURS. FINAL TO FOLLOW. Discharge Plan Discharge Disposition: Xfer SNF Condition: Fair Discharge Medications: New ipratropium-albuterol 0.5 mg-3 mg(2.5 mg base)/3 mL Solution For Nebulization 3 ml inhalation Q4H PRN (Reason: Shortness Of Breath Or Wheezing) Qty: 180 11RF liothyronine 5 mcg Tablet 10 mcg PO QD Qty: 60 11RF quetiapine 100 mg Tablet 200 mg PO QPM Qty: 30 11RF prednisone 10 mg tablet 50 mg PO DAILY Qty: 47 0RF Rx Instructions: 5/day for 3 days. 4/day for 3 days, 3/day for 3 days, 2/day for 3 days, 1/day for 3 days, 1/2 /day for 4 days amoxicillin-pot clavulanate 875-125 mg tablet 1 tab PO Q12H Qty: 20 0RF Continued aspirin 81 mg tablet,delayed release (DR/EC) 81 mg PO QDAY folic acid 1 mg tablet 1 mg PO QDAY quetiapine 100 mg tablet 100 mg PO .COMPLEX Rx Instructions: 100 mg orally QAM + 2QPM; fluticasone propion-salmeterol 250-50 mcg/dose blister with device 1 inh INHALATION Q12H cyanocobalamin (vitamin B-12) [Vitamin B-12] 1,000 mcg tablet 1,000 mcg PO .QD melatonin 3 mg tablet 3 mg PO .QHS PRN (Reason: sleep) ketorolac 0.5 % drops 1 drp OPHTHALMIC (EYE) BID prednisolone acetate 1 % drops,suspension 1 drp OPHTHALMIC (EYE) QID Rx Instructions: THRU 11/15/23 levothyroxine 100 mcg capsule 100 mcg PO .ACB Print Language: Mauritian Corner Bead Operator/Integrated Logistics Support Manager Instructions: Discharge to [facility] skilled Forms: Portal Instructions
[2023-11-09] MEDS: BUDESONIDE 0.5 MG/2 ML AMPULE NEB IH (11:17)
[2023-11-09 11:21] LABS: Glucometer 151 mg/dL (74-106)
--- NOTE | 2023-11-09 11:45 | SWNOTE1 ---
Pt does have concerns about his bills on the first of the month and about not having any other clothing. Nursing has offered pt scrubs, which he does not want. SHAUNA went in to talk with pt. Respiratory in room as well. SHAUNA again let pt know as of now he is only approved until November 12. SW also advised pt that the [facility] will have some extra clothing for pt if he would like. SW also let him know that they will have showers as well. Pt voiced he does not want any of that clothing. He also voiced some issues he is having with his , family issues. Again concerns about bills. Respiratory therapy did voice to pt the importance of going to rehab and taking care of himself. SW did assure pt that he is able to leave [facility] if he does not like it. Advised pt to at least try it out for a few days so he can get stronger. As of now pt still in agreement with going to [facility] for rehab. SHAUNA did let Slivia at [facility] know that pt has concerns about his bills on the first of the month and he does not have clothing. Silvia voiced they will help him and try to make him as comfortable as possible at [facility]. SHAUNA sent over dc med rec and labs to [facility]. SHAUNA set up trips for 1:45pm. SHAUNA let [facility], pt, and nursing know time. SHAUNA completed HENS. SHAUNA took packet to MED/SURGE floor.
--- NOTE | 2023-11-09 12:11 | CM.NOTE ---
Rounds made with Dr. Mcdonnell. Dr. Mcdonnell reviewed test results and plan of care with Kirill. Kirill verbalized understanding. Patient states feeling better. Plan is for patient to be discharged today to SNF at [facility].
[2023-11-09] MEDS: HEPARIN SODIUM (PORCINE) PF LOCK FLUSH 500 UNIT/5 ML SYRINGE IV (13:26)
[2023-11-09 14:21] LABS: C. Difficile PCR NEGATIVE (NEGATIVE)
== END 2023-11-09 13:40 | DRG 202 ==
LOC: ER 23:01 → MS 11-07 04:00
PROVIDERS: Registered Nurse; Admitting Provider Family Medicine; Emergency Provider Emergency Medicine; PCP Family Medicine; Visit Provider Family Medicine
DX: J20.9 Acute bronchitis, unspecified (principal); J18.9 Pneumonia, unspecified organism; D62 Acute posthemorrhagic anemia; E87.1 Hypo-osmolality and hyponatremia; J44.1 Chronic obstructive pulmonary disease with (acute) exacerbation; Z68.1 Body mass index [BMI] 19.9 or less, adult; J44.0 Chronic obstructive pulmonary disease with (acute) lower respiratory infection; K92.2 Gastrointestinal hemorrhage, unspecified; E44.1 Mild protein-calorie malnutrition; R00.0 Tachycardia, unspecified; R09.02 Hypoxemia; R10.9 Unspecified abdominal pain; D50.9 Iron deficiency anemia, unspecified; E03.9 Hypothyroidism, unspecified; R79.89 Other specified abnormal findings of blood chemistry; D70.9 Neutropenia, unspecified; F41.1 Generalized anxiety disorder; D69.6 Thrombocytopenia, unspecified; E87.8 Other disorders of electrolyte and fluid balance, not elsewhere classified; R62.7 Adult failure to thrive; I10 Essential (primary) hypertension; F17.290 Nicotine dependence, other tobacco product, uncomplicated; Z85.118 Personal history of other malignant neoplasm of bronchus and lung; Z79.82 Long term (current) use of aspirin; Z79.899 Other long term (current) drug therapy; Z79.890 Hormone replacement therapy; Z98.52 Vasectomy status
CPT/HCPCS: 0202U; 36415; 71045; 71275; 74018; 74176; 74177; 80053; 81001; 82140; 82948; 83605; 83690; 83735; 83880; 84300; 84436; 84443; 84481; 84484; 85007; 85025; 85027; 87040; 87045; 87046; 87086; 87427; 87493; 87507; 93005; 94640; 94667; 94668; 94761; 96365; 96366; 96367; 96375; 96376; 97110; 97161; 97165; 97530; 97535; 99285; G0328; J0131; J1642; J2405; J2543; J2919; J7131; Q9966; Q9967

== ENCOUNTER 2023-11-22 08:01 | Day surgery (SDC) | payer OTHER, MEDICARE, MEDICAID, SELFPAY ==
--- NOTE | 2023-11-21 | HP_ITS ---
PREOPERATIVE HISTORY AND PHYSICAL Date:? 11/21/2023 HISTORY:? The patient is a 58-year-old male with complaints of declining vision out of his left eye.? He feels ad states that the onset has been gradual over the last five years.? This has been constant in nature, effecting both distance as well as near.? He states it is difficult to drive at night time at this time, because of headlights creating glare and halos.? He also states having difficulty watching television and reading.? ? PAST OCULAR HISTORY:? Denies. PAST MEDICAL HISTORY:? 1.? Thoracic outlet syndrome. 2.? Tachycardia. 3.? History of small cell lung cancer. 4.? Recurrent pancreatitis. 5.? Pyuria. 6.? Prostatitis. 7.? History of a pneumothorax. 8.? Insomnia. 9.? Hyponatremia. 10.? Hypertension. 11.? Heart disease. 12.? Anemia. 13.? Alcoholism. SOCIAL HISTORY:? Denies tobacco.? Drinks alcohol.? Denies recreational drug abuse.? SYSTEMIC MEDICATIONS:? Include 81 mg aspirin, folic acid, amlodipine, pantoprazole, levothyroxine. ALLERGIES:? To lisinopril, sertraline and chlordiazepoxide.? REVIEW OF SYSTEMS:? No pertinent positives. PHYSICAL EXAM: GENERAL:? He is awake, alert and oriented x3, well developed, well nourished, in no acute distress. ? HEART:? Regular rate and rhythm. LUNGS:? Clear bilaterally. ABDOMEN:? Soft, non-tender, non-distended. EXTREMITIES:? No pitting edema. OPHTHALMIC EXAM:? Revealed a visual acuity of 20/40 in the right that glared to 20/200 and 20/50 in the left that glared to 20/200.? Pupils motility, muscle balance, confrontational visual rivas within normal limits bilaterally.? Pressures measured at 16 bilaterally.? Slit lamp exam revealed blepharitis with a decrease in tear film bilaterally.? Conjunctiva, cornea, anterior chamber and iris were within normal limits bilaterally.? Lens status demonstrated 2+ nuclear sclerosis with 1+ cortical changes bilaterally. FUNDUS EXAM:? Revealed a good view with good dilation bilaterally.? Optic discs, macula, vessels, periphery and vitreous were within normal limits bilaterally. ASSESSMENT AND PLAN:? Visually significant cataract, left eye.? After risks, benefits, alternatives, as well as expectations were delivered to the patient, he elected to go forward with cataract removal.? He understands the risks include but not limited to infection, bleeding, loss of vision, loss of the eye itself.? Secondly, he understands postoperatively he is likely to require spectacle correction for his best visual acuity.? Finally, a complete ophthalmic exam was performed, there is not determined to be any other source of visual decline other than that of the cataract. After understanding all the risks as well as expectations, he elected to go forward with cataract removal and will be doing so in the near future. YANI
--- NOTE | 2023-11-22 | OP_ITS ---
OPERATION DATE: 11/22/2023 SURGEON: Wally Cristobal M.D. PREOPERATIVE DIAGNOSIS: Nuclear sclerotic cataract left eye. POSTOPERATIVE DIAGNOSIS: Nuclear sclerotic cataract left eye. PROCEDURE: Cataract extraction with intraocular lens placed for the left eye. ANESTHESIA: Topical ESTIMATED BLOOD LOSS: Zero. COMPLICATIONS: None. PROCEDURE: The patient was brought to the Operating Room in supine position. After proper identification, the left eye was prepped and draped in a sterile ophthalmic fashion. A paracentesis created at the 5 o'clock position. Approximately 1 cc of unpreserved Xylocaine was injected into the anterior chamber followed by Amvisc Plus. Using a 2.6 mm Keratome blade, a clear corneal incision was created at the 2 o'clock limbus. A cystotome was then used to begin a curvilinear capsulorrhexis that was continued for 360 degrees with the Utrata forceps. BSS on a 26 gauge cannula was injected beneath the anterior capsule to hydrodissect as well as hydrodelineate the lens. After ensuring mobility, phacoemulsification was performed in a [id number]-type fashion. After all nuclear material had been removed from the eye, IA was introduced and all residual cortical material was cleaned up. Additional Amvisc Plus was injected into the posterior bag and a lens model MX60, 22.0 diopters was injected and dialed into position. After ensuring centration, IA was reintroduced into the anterior chamber and all residual Amvisc Plus was removed from the eye. BSS on a 30 gauge cannula was injected into the stroma of both the clear corneal incision as well as paracentesis to hydrate the wounds. Additional BSS was injected into the anterior chamber to pressurize the eye at approximately 20 to 22 mmHg by finger tension. 0.1 cc of antibiotic was used to wash out the anterior chamber, maintaining the pressures above. Weck-Lucille sponges were used to check the wounds to be watertight. One drop of apraclonidine and one drop of prednisolone acetate placed into the eye and a shield was placed over top. The patient was sent to the postoperative area in satisfactory condition to follow up the following day for postoperative care. YANI
[2023-11-22] MEDS: TROPICAMIDE 1% OP SOL 300 DROP/15 ML BOTTLE OP ×4 (08:13→08:45)
[2023-11-22] MEDS: BESIFLOXACIN HCL 100 DROP DROPS.SUSP OP ×4 (08:14→08:46)
[2023-11-22] MEDS: PHENYLEPHRINE HCL 2.5% OP SOL 40 DROP/2 ML BOTTLE OP ×4 (08:14→08:46)
[2023-11-22] MEDS: CYCLOPENTOLATE HCL 1% OP SOL 40 DROP/2 ML BOTTLE OP ×4 (08:14→08:45)
[2023-11-22 08:20] VITALS: BP 117/83; PULSE 77; TEMP 36.3; O2SAT 100
[2023-11-22] MEDS: DIAZEPAM 5 MG TABLET 10 MG PO (08:22)
[2023-11-22] MEDS: PROPARACAINE HCL 0.5% 300 DROP/15 ML BOTTLE OP (09:25)
[2023-11-22 09:37] VITALS: BP 163/105; PULSE 69; O2SAT 100
[2023-11-22] MEDS: APRACLONIDINE HCL 0.5% SOL 100 DROP/5 ML BOTTLE OP (09:39)
[2023-11-22] MEDS: HYALURONATE SODIUM 16 MG/ML SYRINGE OP (09:39)
[2023-11-22] MEDS: LIDOCAINE 2% JELLY 10 ML TOPICAL (09:40)
[2023-11-22] MEDS: LIDOCAINE HCL 1% PF 20 MG/2 ML VIAL INJ (09:40)
[2023-11-22] MEDS: BETADINE POVIDONE-IODINE 5% OP SOL 30 ML BOTTLE OP (09:40)
[2023-11-22] MEDS: PHENYLEPHRINE/KETOROLAC 1-0.3% ML VIAL 4 ML IRR (09:40)
[2023-11-22] MEDS: TETRACAINE HCL 0.5% OP SOL 80 DROP/4 ML BOTTLE OP (09:41)
[2023-11-22] MEDS: PREDNISOLONE ACETATE OP 1% SUSP 100 DROPS/5 ML 1 DROP OP (09:41)
[2023-11-22] MEDS: CEFUROXIME SODIUM 750 MG, 0.9 % SODIUM CHLORIDE 16.3 ML OP (09:41)
[2023-11-22 09:45] VITALS: BP 156/93; PULSE 67; O2SAT 100
== END 2023-11-22 09:57 | disposition home or self-care (01) ==
LOC: SURGOUT 08:02
PROVIDERS: PCP Family Medicine; Visit Provider Ophthalmology
PROC: (CPT 66984; principal; 2023-11-22 09:10)
DX: H25.12 Age-related nuclear cataract, left eye (principal)
CPT/HCPCS: 66984; J0697; V2630

== ENCOUNTER 2023-11-26 12:35 | Emergency (ER) | payer OTHER, MEDICARE, MEDICAID, SELFPAY ==
[2023-11-26] VITALS (18 sets, daily range): BP systolic 134–153; BP diastolic 92–105; PULSE 82–104; TEMP 36.4; O2SAT 95–98; BMI 20.9
--- NOTE | 2023-11-26 13:06 | ECG_ITS ---
The [facility] Test Date: 2023-11-26 Pat Name: TONI GERBER Department: Room: - Gender: Male [employer]: : 1965 Requested By: Order Number: [id number] Reading MD: LUH STRONG Measurements Intervals [place] Rate: 103 P: 75 IA: 212 QRS: 59 QRSD: 88 T: 79 QT: 342 QTc: 401 Interpretive Statements 1120 Sinus tachycardia 2231 First degree AV block Non-Specific T wave inversion in aVL 9150 abnormal ECG Compared to ECG 11/06/2023 22:58:00 First degree AV block now present Myocardial infarct finding no longer present Electronically Signed On 11-27-2023 5:24:50 EDT by LUH STRONG
--- NOTE | 2023-11-26 13:06 | XR_ITS ---
The [address] [address] Patient Name: TONI GERBER MRN: [id number] date: 1965 Sex: M Assigned Patient Location: ER Current Patient Location: ER Accession/Order Number: [id number] Exam Date: 11/26/2023 13:30 Report Date: 11/26/2023 14:08 At the request of: TOMAS CARLTON Procedure: XR chest 1V EXAMINATION: XR chest 1V HISTORY: edema COMPARISON: 11/06/2023 TECHNIQUE: AP portable FINDINGS: LUNGS: Mild right basilar opacity VASCULATURE: No increased pulmonary vasculature. PLEURA: No pneumothorax, effusion, or pleural thickening. CARDIAC: No cardiomegaly or cardiac silhouette abnormality. MEDIASTINUM: No visible mass or adenopathy. Stable left Port-A-Cath BONES: No fracture or visible bone lesion. OTHER: Negative. XR/XR chest 1V IMPRESSION: Moderate right basilar opacity, possibly chronic Electronically authenticated by: MARCE GOULD Date: 11/26/2023 14:08
[2023-11-26 13:40] LABS: Eosinophils Absolute Auto 0.2 10^3/uL (0.0-0.7); Eosinophils Percent Auto 5.8 % (0.9-7.0); Hematocrit 35.7 % (42.0-54.0); Hemoglobin 13.2 g/dL (14.0-18.0); Immature Granulocytes Abs Auto 0.01 10^3/uL (0.00-0.03); Immature Granulocytes Pct Auto 0.3 % (0.0-0.5); Lymphocytes Percent Auto 25.9 % (20.5-60.0); Mean Corpuscular Volume 89.3 fL (80.0-94.0); Mean Platelet Volume 9.2 fL (9.5-13.5); Monocytes Absolute Auto 0.4 10^3/uL (0.3-0.8); Monocytes Percent Auto 10.3 % (1.7-12.0); Neutrophils Absolute Auto 2.3 10^3/uL (1.4-6.5); Neutrophils Percent Auto 56.7 % (43.0-75.0); Platelet Count 189 10^3/uL (150-450); Red Cell Distribution Width 15.1 % (11.0-15.0)
[2023-11-26 13:59] LABS: INR 0.94
[2023-11-26 14:03] LABS: Alanine Aminotransferase 18 U/L (16-63); Albumin Globulin Ratio 0.9; Albumin Level 3.2 g/dL (3.4-5.0); Alkaline Phosphatase 95 U/L (46-116); Anion Gap 13.3; Aspartate Amino Transferase 9 U/L (15-37); Bilirubin Total 0.7 mg/dL (0.2-1.0); Calcium 8.5 mg/dL (8.5-10.1); Carbon Dioxide 23.7 mmol/L (21.0-32.0); Chloride 98 mmol/L (98-107); Estimated GFR (African America >60 (>=60); Estimated GFR (Non-African Ame >60 (>=60); Globulin 3.5 g/dL; Glucose 68 mg/dL (74-106); Sodium 131 mmol/L (136-145); Total Protein 6.7 g/dL (6.4-8.2)
--- NOTE | 2023-11-26 15:12 | ED.GENADUL1 ---
HPI HPI - General Adult General Chief complaint: Extremity Problem, Nontraumatic Stated complaint: SWELLING IN BOTH FEET Time Seen by Provider: 11/26/23 12:49 Source: patient Mode of arrival: walk-in Limitations: no limitations History of Present Illness HPI narrative: 58-year-old male to the emergency department with chief complaint of bilateral foot swelling. Patient reports symptoms were first noticed this morning when he woke up. Last night he was seated in his garage drinking with some buddies talking about the trump but attempted assassination. Reports he has never had swelling like this before. He denies any leg pain. He denies any chest pain or shortness of breath. No history of congestive heart failure. No history of DVT or PE. The swelling stops at his ankle. Related Data Home Medications ?Medication ?Instructions ?Recorded ?Confirmed aspirin 81 mg tablet,delayed 81 mg PO QDAY 01/02/23 11/26/23 release folic acid 1 mg tablet 1 mg PO QDAY 01/02/23 11/26/23 cyanocobalamin (vitamin B-12) 1,000 mcg PO .QD 11/06/23 11/26/23 1,000 mcg tablet (Vitamin B-12) fluticasone 250 mcg-salmeterol 50 1 inh inhalation Q12H 11/06/23 11/26/23 mcg/dose blistr powdr for inhalation ketorolac 0.5 % eye drops 1 drp ophthalmic (eye) BID 11/06/23 11/26/23 melatonin 3 mg tablet 3 mg PO .QHS PRN sleep 11/06/23 11/26/23 prednisolone acetate 1 % eye 1 drp ophthalmic (eye) QID 11/06/23 11/26/23 drops,suspension levothyroxine 100 mcg capsule 100 mcg PO .ACB 11/07/23 11/26/23 quetiapine 100 mg tablet See Rx Instructions PO DAILY 11/26/23 11/26/23 Allergies Allergy/AdvReac Type Severity Reaction Status Date / Time chlordiazepoxide Allergy facial Verified 11/16/23 14:39 [From Librium] swelling lisinopril Allergy Hypotension Verified 11/16/23 14:38 sertraline Allergy low energy Verified 11/16/23 14:39 Opioid HPI Opioid Management Most Recent Opioid Data: Last Pain Scale 4 11/26/23 12:53 Last ORT Total Score 0 11/07/23 04:08 Last ORT Risk Category Low Risk 11/07/23 04:08 Review of Systems ROS Status of ROS 10 or more systems reviewed and unremarkable except as noted in history and below [facility] Medical History (Updated 11/26/23 @ 15:09 by Narciso Graff MD) History of lung cancer in adulthood ?Z85.118 - Personal history of other malignant neoplasm of bronchus and lung (ICD-10) Adult failure to thrive ?R62.7 - Adult failure to thrive (ICD-10) Acute hyponatremia ?E87.1 - Hypo-osmolality and hyponatremia (ICD-10) Acute exacerbation of chronic obstructive pulmonary disease (COPD) ?J44.1 - Chronic obstructive pulmonary disease with (acute) exacerbation (ICD-10) Costochondritis ?M94.0 - Chondrocostal junction syndrome [Tietze] (ICD-10) Hyponatremia ?E87.1 - Hypo-osmolality and hyponatremia (ICD-10) Partial small bowel obstruction ?K56.600 - Partial intestinal obstruction, unspecified as to cause (ICD-10) Insomnia ?G47.00 - Insomnia, unspecified (ICD-10) Hypothyroidism ?E03.9 - Hypothyroidism, unspecified (ICD-10) Lung cancer ?C34.90 - Malignant neoplasm of unspecified part of unspecified bronchus or lung (ICD-10) Hypertension ?I10 - Essential (primary) hypertension (ICD-10) Surgical History (Updated 11/16/23 @ 14:49 by Maryuri Whipple) History of hand surgery ?Z98.890 - Other specified postprocedural states (ICD-10) History of colonoscopy ?Z98.890 - Other specified postprocedural states (ICD-10) H/O vasectomy ?Z98.52 - Vasectomy status (ICD-10) Family History Father Family history of cancer Family history of COPD (chronic obstructive pulmonary disease) Mother Family history of diabetes mellitus Family history of COPD (chronic obstructive pulmonary disease) Brother Family history of diabetes mellitus Sister Family history of diabetes mellitus Social History (Updated 11/16/23 @ 14:20 by Maryuri Whipple) Within the past year, how often did you have a drink containing alcohol: 4 or more times a week Smoking status: Light tobacco smoker Non-prescribed substance use: cannabis (any form) Highest level of school completed/degree received: 12th grade, no diploma Exam Narrative Exam Narrative: VITALS: I have reviewed the triage vital signs. GENERAL: Well developed, well appearing adult in no acute distress. NEURO: Alert and oriented. Moves all extremities. Face is symmetric and expressive. EYES: PERRL. No scleral icterus or conjunctival injection. No discharge. HENT: Normocephalic, atraumatic. Hearing is grossly intact. Nares grossly patent and without discharge. Mucous membranes moist. NECK: No JVD. Patient moves neck without restriction. CARDIO: Rhythm regular. Normal rate. No murmur, rub, or gallop. Pulses equal bilaterally in the upper and lower extremity. +1 edema to the feet and ankles. PULM: Lungs clear to auscultation in all rivas. No wheezes, rales, or rhonchi. No conversational dyspnea. No splinting, stridor, or accessory muscle use. GI/: Abdomen is soft and non-tender. Normoactive bowel sounds. EXTREMITIES: Symmetric muscle bulk. No joint swelling. No clubbing, cyanosis, or deformity. No redness, warmth, wounds, lesions to the bilateral lower extremities. DP and PT pulses are intact bilaterally. Limbs are similar color and temperature bilaterally. No tenderness or palpable cords over the deep vein system. SKIN: Warm and dry. Normal turgor. No rash or lesions appreciated. PSYCH: Mood, affect, and interaction is appropriate to the setting. Constitutional Vital Signs, click to edit/add: Last Vital Signs Temp 97.6 F 11/26/23 12:40 Pulse 84 11/26/23 14:10 Resp 23 H 11/26/23 14:10 BP 142/97 H 11/26/23 14:00 Pulse Ox 97 11/26/23 14:10 Course Vital Signs Vital signs: Vital Signs Temperature 97.6 F 11/26/23 12:40 Pulse Rate 103 H 11/26/23 12:40 Respiratory Rate 18 11/26/23 12:40 Blood Pressure 153/105 H 11/26/23 12:40 Pulse Oximetry 97 11/26/23 12:40 Temperature 97.6 F 11/26/23 12:40 Pulse Rate 84 11/26/23 14:10 Respiratory Rate 23 H 11/26/23 14:10 Blood Pressure 142/97 H 11/26/23 14:00 Pulse Oximetry 97 11/26/23 14:10 Medical Decision Making MDM Narrative Medical decision making narrative: 58-year-old male to the emergency department chief complaint of bilateral foot swelling. Vital stable, the patient is afebrile. Basic labs ordered. EKG and BNP are both within normal limits. Chest x-ray is without acute findings. Lab work otherwise at the patient's baseline. Given the recent history likely dependent edema/heat edema. Instructed him to place a pillow under his legs at night. Use compression stockings. Patient agrees with this plan. He will follow-up with his doctor within the next week to make sure symptoms have improved. Return precautions were discussed. All questions were answered. The patient was discharged home. Medical Records Medical records reviewed: Yes I reviewed the patient's medical records Lab Data Lab results reviewed: Yes I reviewed the patient's lab results Labs: Lab Results 11/26/23 Range/Units 13:14 WBC 4.0 (4.0-11.0) 10^3/uL RBC 4.00 L (4.70-6.10) 10^6/uL Hgb 13.2 L (14.0-18.0) g/dL Hct 35.7 L (42.0-54.0) % MCV 89.3 (80.0-94.0) fL MCH 33.0 (25.9-34.0) pg MCHC 37.0 H (29.9-35.2) g/dL RDW 15.1 H (11.0-15.0) % Plt Count 189 (150-450) 10^3/uL MPV 9.2 L (9.5-13.5) fL Neut % (Auto) 56.7 (43.0-75.0) % Lymph % (Auto) 25.9 (20.5-60.0) % Marin % (Auto) 10.3 (1.7-12.0) % Eos % (Auto) 5.8 (0.9-7.0) % Baso % (Auto) 1.0 (0.2-2.0) % Neut # (Auto) 2.3 (1.4-6.5) 10^3/uL Lymph # (Auto) 1.0 L (1.2-3.8) 10^3/uL Marin # (Auto) 0.4 (0.3-0.8) 10^3/uL Eos # (Auto) 0.2 (0.0-0.7) 10^3/uL Baso # (Auto) 0.0 (0.0-0.1) 10^3/uL Abs Immat Gran (auto) 0.01 (0.00-0.03) 10^3/uL Imm/Tot Granulo (auto) 0.3 (0.0-0.5) % PT 10.0 (9.0-11.6) sec INR 0.94 Sodium 131 L (136-145) mmol/L Potassium 4.0 (3.5-5.1) mmol/L Chloride 98 (98-107) mmol/L Carbon Dioxide 23.7 (21.0-32.0) mmol/L Anion Gap 13.3 BUN 12.0 (7.0-18.0) mg/dL Creatinine 0.80 (0.70-1.30) mg/dL Est GFR ( Amer) >60 (>=60) Est GFR (Non-Af Amer) >60 (>=60) BUN/Creatinine Ratio 15.0 Glucose 68 L (74-106) mg/dL Calcium 8.5 (8.5-10.1) mg/dL Total Bilirubin 0.7 (0.2-1.0) mg/dL AST 9 L (15-37) U/L ALT 18 (16-63) U/L Alkaline Phosphatase 95 (46-116) U/L NT-Pro-B Natriuret Pep 113.0 (<=900.0) pg/mL Total Protein 6.7 (6.4-8.2) g/dL Albumin 3.2 L (3.4-5.0) g/dL Globulin 3.5 g/dL Albumin/Globulin Ratio 0.9 Imaging Data Chest x-ray: Attestation: I have reviewed the pertinent imaging results. Radiologist's impression: ITS Impressions Chest X-Ray 11/26/23 13:06 IMPRESSION: Moderate right basilar opacity, possibly chronic Electronically authenticated by: MARCE GOULD Date: 11/26/2023 14:08 ECG Data Attestation: I personally reviewed and interpreted this ECG as follows: (ST at 103. No STEMI. Normal QTc. ) Discharge Plan Discharge Stand Alone Forms: Portal Instructions Chief Complaint: Extremity Problem, Nontraumatic Clinical Impression: Dependent edema Patient Disposition: Home, Self-Care Time of Disposition Decision: 15:09 Condition: Good Mode of Transportation: Private Vehicle Prescriptions / Home Meds: No Action aspirin 81 mg tablet,delayed release (DR/EC) 81 mg PO QDAY folic acid 1 mg tablet 1 mg PO QDAY fluticasone propion-salmeterol 250-50 mcg/dose blister with device 1 inh INHALATION Q12H cyanocobalamin (vitamin B-12) [Vitamin B-12] 1,000 mcg tablet 1,000 mcg PO .QD melatonin 3 mg tablet 3 mg PO .QHS PRN (Reason: sleep) ketorolac 0.5 % drops 1 drp OPHTHALMIC (EYE) BID prednisolone acetate 1 % drops,suspension 1 drp OPHTHALMIC (EYE) QID Rx Instructions: THRU 11/15/23 levothyroxine 100 mcg capsule 100 mcg PO .ACB quetiapine 100 mg tablet See Rx Instructions PO DAILY Rx Instructions: 100mg in morning 200mg at night orally daily; Print Language: Turkish Instructions: Leg Edema (ED) Additional Instructions: Purchase some compression stockings to wear. Sleep with a pillow under your feet at night. Follow-up with your doctor in the next week to ensure symptoms are improving. Call the office of your primary care doctor to arrange for follow-up within the above-stated timeframe. Your ED visit was focused on your acute issue and does not replace primary care. You should review your labs, imaging, and diagnoses from this ED visit with your primary care physician. There may be non-emergent/ incidental findings that need further evaluation. You should review your vital signs including blood pressure with your PCP. If you were prescribed medications you should discuss possible side-effects and drug interactions with your pharmacist. Call 911 or go to the nearest Emergency Department if you develop any new or worsening symptoms. Referrals: DANNA QURESHI [Primary Care Provider] - 1 week
== END 2023-11-26 15:24 | disposition home or self-care (01) ==
PROVIDERS: Emergency Provider Student in an Organized Health Care Education/Training Program; PCP Family Medicine
DX: R60.9 Edema, unspecified (principal); F17.200 Nicotine dependence, unspecified, uncomplicated
CPT/HCPCS: 36415; 71045; 80053; 83880; 85025; 85610; 93005; 99285

== ENCOUNTER 2023-12-13 11:41 | Inpatient (IN) | payer OTHER, MEDICARE, MEDICAID, SELFPAY ==
[2023-12-13] VITALS (24 sets, daily range): BP systolic 91–133; BP diastolic 60–94; PULSE 102–140; TEMP 36.7–36.9; O2SAT 55–100; BMI 19.0
--- NOTE | 2023-12-13 12:04 | CT_ITS ---
[address] [address] Patient Name: TONI GERBER MRN: [id number] date: 1965 Sex: M Assigned Patient Location: ER Current Patient Location: ER Accession/Order Number: [id number] Exam Date: 12/13/2023 12:10 Report Date: 12/13/2023 12:57 At the request of: TOMAS CARLTON Procedure: CT abdomen pelvis wo con EXAMINATION: CT abdomen pelvis wo con HISTORY: right flank pain , burning sensation with urination COMPARISON: CT abdomen pelvis 11/07/2023, 11/08/2023 TECHNIQUE: Axial, Coronal, and Sagittal images were obtained without and/or with IV contrast as indicated by examination type. Dose reduction techniques were achieved by using automated exposure control and/or adjustment of mA and/or kV according to patient size and/or use of iterative reconstruction technique. FINDINGS: LUNG BASES: Suspect mild atelectasis or scarring within right middle and right lower lobes. Small pericardial effusion. LIVER: No enlargement, atrophy, suspicious density, or significant focal lesion. BILIARY: No dilatation or calcification. PANCREAS: Multiple calcifications within the pancreas suggestive of chronic pancreatitis. SPLEEN: No enlargement or focal lesion. ADRENALS: No mass or enlargement. KIDNEYS: No mass, obstruction, or calcification. BOWEL/MESENTERY: Scattered fluid-filled loops of small bowel without abnormal wall thickening or abnormal dilation. Air-fluid levels within colon without obstruction or appreciable inflammatory changes. AORTA/VASCULAR: No aneurysm or dissection. RETROPERITONEUM: No mass or adenopathy. LYMPH NODES: No adenopathy. URINARY BLADDER: Urinary bladder is mostly empty, but wall thickening is still suspected. No stones or appreciable mass. PELVIC ORGANS: No visible mass. Pelvic organs appropriate for patient age. ABDOMINAL WALL: No mass or hernia. BONES: No bony lesion or fracture. OTHER: Negative. CT/CT abdomen pelvis wo con IMPRESSION: 1. Evaluation of the urinary bladder is slightly limited since it is nearly completely empty, however, cystitis is still suspected. 2. No urinary tract calculi or obstructive uropathy. 3. Small pericardial effusion; new since prior study. Electronically authenticated by: JESSE RAMOS Date: 12/13/2023 12:57
--- OUTSIDE RECORDS SUMMARY | 2023-12-13 12:09 | XMS_ITS | CCD ---
Author Organization [facility] CliniSyd[facility] Care Team Providers Care Medical Physics Professor Name Role Phone Salam, Galloway Unavailable Unavailable Salam, Galloway Unavailable Unavailable Salam, Galloway Unavailable Unavailable RYLAN ANDREA~[id number] UNKNOWN Unavailable Unavailable CUBA ESQUIVEL Unavailable Unavailable CUBA ESQUIVEL Unavailable Unavailable AHMEDKEISHA Referring Unavailable AHMEDKEISHA Primary Care Unavailable Rylan Andrea A Unavailable Unavailable Unavailable Anita Lincoln Unavailable Rylan [...] DO Estela Varma II Attending Provider [phone] MD Rylan Andrea Primary Care Provider [phone] MD Varghese Duval Referring Provider [phone] DO Estela Varma II Attending Provider [phone] DO Kali Longo Emergency Provider [phone] MD Tez Irene Admit Provider MD Tez Irene Attending Provider MD Rylan Andrea Primary Care Provider DO Estela Varma II Other Provider MD Varghese Duval Referring Provider Adamowicz II, DO Estela J Attending Provider [phone] MD Varghese Duval Referring Provider Adamowicz II, DO Estela J Attending Provider [phone] MD Rachid Chase Attending Provider [phone] MD Varghese Duval Attending Provider [phone] Adamowicz II, DO Estela J Attending Provider MD Annette Guardado Other Provider MD Varghese Duval Referring Provider Rachid Chase Unavailable MD Rylan Andrea Primary Care Provider MD Varghese Duval Referring Provider Adamowicz II, DO Estela J Attending Provider YULY Isidro Attending Provider [phone] EMRE, DR CLAY Primary Care Unavailable ADAMOWICZ, ESTELA J Admitting Unavailable ADAMOWICZ, ESTELA J Attending Unavailable ADAMOWICZ, ESTELA J Consulting Unavailable ANDREA, DR CLAY Primary Care Unavailable ADAMOWICZ, ESTELA J Admitting Unavailable ADAMOWICZ, ESTELA J Attending Unavailable ADAMOWICZ, ESTELA J Consulting Unavailable ANDREA, DR CLAY Primary Care Unavailable ADAMOWICZ, ESTELA J Admitting Unavailable ADAMOWICZ, ESTELA J Attending Unavailable ADAMOWICZ, ESTELA J Consulting Unavailable BELM[place], DR MARCE Fernandez Consulting Unavailable NADERER, DR LIZBET Flaherty Admitting Unavailable NADERER, DR LIZBET Flaherty Attending Unavailable ANDREA, DR CLAY Primary Care Unavailable NADERER, DR LIZBET Flaherty Consulting Unavailable HAY ., DR ROUSE Consulting Unavailable ALEXANDRIA, DR MELANI Davis Admitting Unavailabl e ALEXANDRIA, DR MELANI Davis Attending Unavailabl e ALEXANDRIA, DR MELANI Davis Consulting Unavailabl e ANDREA, DR CLAY Primary Care Unavailable MARCE SHAY Consulting Unavailable RACHEL, DR JESSE Norton Consulting Unavailable DIAB ., JEVON Admitting Unavailable DIAB ., JEVON Attending Unavailable ANDREA, DR CLAY Primary Care Unavailable DIAB ., JEVON Consulting Unavailable ANDREA, DR CLAY Primary Care Unavailable KARISHMAICZSTEPHENIEESTELA J Admitting Unavailable KARISHMAICZ, ESTELA J Attending Unavailable LAURAOWICZ, ESTELA J Consulting Unavailable ANDREA, DR CLAY Primary Care Unavailable ADAMOWICZ, ESTELA J Attending Unavailable ADAMOWICZ, ESTELA J Consulting Unavailable ADAMOWICZ, ESTELA J Admitting Unavailable ANDREA, DR CLAY Admitting Unavailable ZIEBER, DR JESSE Norton Consulting Unavailable ANDREA, DR CLAY Primary Care Unavailable ANDREA, DR CLAY Attending Unavailable ANDREA, DR CLAY Consulting Unavailable MD Rylan Andrea Primary Care Provider MD Varghese Duval Referring Provider [phone] Adamowicz II, DO Estela Rosales Attending Provider [phone] KIKO Molina Emergency Provider MD Varghese Duval Referring Provider Adamowicz II, DO Estela Rosales Attending Provider MD Varghese Duval Referring Provider Adamowicz II, DO Estela Rosales Attending Provider Rylan Andrea MD Primary Care Provider Kailey STRIPPING SHOVEL OPERATOR, Marilu Unavailable Sanna ALMEIDA, Nilsa R Unavailable Eliseo GIBSON, Morenita Unavailable Carlota JIANG, Sanjuana Unavailable MD Rylan Andrea Primary Care Provider [phone] MD Varghese Duval Referring Provider Adamowicz II, DO Estela Rosales Attending Provider [phone] RYLAN ANDREA Referring Unavailable RYLAN ANDREA Primary Care Unavailable RYLAN ANDREA Referring Unavailable RYLAN ANDREA Primary Care Unavailable Varghese Duval Referring Unavailable Adamowicz II, Estela Rosales Attending Unavaila ble Adamowicz II, Estela Rosales Admitting Unavaila ble Rylan Andrea Primary Care Unavailable RYLAN ANDREA Attending Unavailable KAILEY, MARILU Attending Unavailable DANGELOCHOL, MARILU Attending Unavailable DANGELOCHOL, MARILU Referring Unavailable WARCHOL, MARILU Attending Unavailable FLROINDA MONK Attending Unavailable MARILU BONNER Attending Unavailable MARILU BONNER Attending Unavailable Allergies Allergy Classification Reported Allergen(s) Allergy Type Date of Onset Reaction(s) Facility (4 sources) chlordiazePOXID E; Translations: [Librium] Drug Allergy Unknown [facility] (18 sources) Lisinopril Drug Allergy 2 Unknown, Swelling of Lip/Tongue/Thro at [facility] (20 sources) Sertraline; Translations: [sertraline] Drug Allergy 2 Swelling of Lip/Tongue/Thro at [facility] (7 sources) chlordiazePOXID E; Translations: [chlordiazepoxi de] Drug Allergy 3 Edema [facility] (1 source) Amino Acids Drug Allergy [facility] (1 source) Sertraline Drug Allergy 2 [facility] (4 sources) Lisinopril Allergy to substance 3 [facility] (1 source) Lisinopril Drug Allergy 4 [facility] Repository Medications Current Medications Medication Drug Class(es) [...] release Discontinued 650 MG PO Q8H 90 30 December 03, 2019 11:00pm February 26, 2020 1:07pm acetaminophen 325 mg / HYDROcodone bitartrate 5 mg oral tablet (20 sources) Opioid Agonist Start: 06-17-2022 End: 09-04-2022 take 1 tablet by mouth every six hours Hydrocodone-Acetaminophen Discontinued 1 - 2 TAB PO Q6H 40 5 June 17, 2022 September 04, 2022 10:24am [...] Tablet Discontinued 1 TAB PO Q6H 28 7 August 24, 2021 February 27, 2022 1:34pm Start: 02-01-2021 End: 04-05-2021 take 1 tablet by mouth every four hours Oxycodone-Acetaminophen (Percocet) 5-325 mg Tablet Discontinued 1 TAB PO Q4H 30 February 01, 2021 April 05, 2021 10:47am Start: 12-04-2019 End: 05-03-2020 take 1-2 tablets by mouth every four hours Oxycodone-Acetaminophen (Percocet) 7.5-325 mg Tablet Discontinued 1 TAB PO Q4H 60 14 December 04, 2019 May 03, 2020 11:08am 1-2 tab #100 RF zero given on 12/29 [id number] 200 actuat albuterol 0.09 mg/actuat metered dose [...] (Bisacodyl)) 10 mg Suppository Discontinued 10 MG KS Q24H August 16, 2020 11:00pm September 01, [...] times daily Buspirone Discontinued 10 MG PO TID@0900,1400,2200 December 01, 2019 1:14pm August 03, 2020 [...] 9:51am docusate sodium 50 mg / sennosides, shelter 8.6 mg oral tablet (20 sources) Start: [...] 03, 2019 11:00pm December 01, 2019 12:23pm Fhvmarzvgdq-Dgltipfim-Rumeym er (15 sources) Anticholinergic, Corticosteroid, beta2-Adrenergic Agonist Start: 07-26-2020 End: 08-17-2020 Wzczechytzm-Makcgfwie-Mkltkh er (Trelegy Ellipta) 100-62.5-25 mcg Blister With Device Discontinued 1 INH INHALATION Daily July 25, 2020 11:00pm August 17, 2020 8:43am Start: 07-26-2020 End: 08-17-2020 Aeoskyeszsu-Xnctsmnls-Vrdprk er (Trelegy Ellipta) 100-62.5-25 mcg Blister With [...] Hydroxyzine Hcl Discontinued 25 MG PO Q6H 30 September 21, 2017 11:00pm July 30, 2019 [...] daily Quantity: 90 Refills: 3 Ordered: 08-Sep-2021 Tee BULLOCK Lukas Start : 08-Sep-2021 Active mirtazapine 15 mg [...] at the same time. 0 Active nystatin 934001 unt/ml oral suspension (15 sources) Polyene Antifungal [...] per Palliative or PCP polyethylene glycol 3350 93070 mg powder for oral solution (15 sources) [...] take 2 tablets by mouth at bedti az Zolpidem Tartrate 5 MG (Schedule IV Drug) [...] 09-25-2022 Chronic Other aftercare (1 source) Other terminal clerk (current) drug therapy; Translations: [OTH PENITENTIARY CURRENT DRUG THERAPY] Onset: 3 Episodic Other aftercare (1 source) intermediate (current) use of aspirin; Translations: [PENITENTIARY CURRENT USE OF ASPIRIN] Onset: 3 Episodic [...] source) Pain, unspecified; Translations: [Pain, unspecified] Onset: 4 Episodic Screening and history of mental health [...] [CONTACT W/AND (SUSP) EXPOS COVID-19] Onset: 2 Past or Other Problems Problem Classification Problem [...] ALT [Catalytic activity/Vol] 14 U/L Normal 7-52 [facility] Comment on above: Performed By: #### C BC, MARILU, LIPASE, FE and TIBC, CEA, T4F, TSH3, YUSUF, [id number], CMP ####[address]#### METH ####[facility] , Albumin [Mass/volume] in Ser um or Plasma by Bromocresol green (BCG) dye binding methoOrdered By: Estela Varma on 06-25-2023 Albumin BCG dye [Mass/Vol] 3.9 g/dL 3.5-5.7 [facility] Alkaline phosphatase [Enzyma tic activity/volume] in Serum or PlasmaOrdered By: Estela Varma on 06-25-2023 ALP [Catalytic activity/Vol] 126 U/L High 34-104 [facility] Comment on above: Performed By: #### C BC, MARILU, LIPASE, FE and TIBC, CEA, T4F, TSH3, YUSUF, [id number], CMP ####[place] [address] [place]#### METH ####[facility] , Amylase [Enzymatic activity/ volume] in Serum or PlasmaOrdered By: Estela Varma on 06-25-2023 Amylase [Catalytic activity/Vol] 52 U/L Normal 29-103 [facility] Comment on above: Performed By: #### C BC, MARILU, LIPASE, FE and TIBC, CEA, T4F, TSH3, YUSUF, [id number], CMP ####[place] [address] [place]#### METH ####[facility] , Aspartate aminotransferase [ Enzymatic activity/volume] in Serum or PlasmaOrdered By: Estela Varma on 06-25-2023 AST [Catalytic activity/Vol] 30 U/L Normal 13-39 [facility] Comment on above: Performed By: #### C BC, MARILU, LIPASE, FE and TIBC, CEA, T4F, TSH3, YUSUF, [id number], CMP ####[address]#### METH ####[facility] , Automated basophil %Ordered By: Estela Varma on 06-25-2023 Basophils/100 WBC (Bld) 1.3 % Normal . [facility] Comment on above: Performed By: #### C BC, MARILU, LIPASE, FE and TIBC, CEA, T4F, TSH3, YUSUF, [id number], CMP ####[address]#### METH ####[facility] , Automated basophil countOrde red By: Estela Varma on 06-25-2023 Basophils (Bld) [#/Vol] 0.1 10*3/uL Normal 0.0-0.2 [facility] Comment on above: Result Comment: PERF ORMED BY: [facility] [address] [place] [address] PATHOLOGIST PLASTIC MOLDING OPERATOR CATY DELCID M.D. Performed By: #### C BC, MARILU, LIPASE, FE and TIBC, CEA, T4F, TSH3, YUSUF, [id number], CMP ####[address]#### METH ####[facility] , Automated blood monocyte cou ntOrdered By: Estela Varma on 06-25-2023 Monocytes (Bld) [#/Vol] 0.7 10*3/uL Normal 0.0-0.8 [facility] Comment on above: Performed By: #### C BC, MARILU, LIPASE, FE and TIBC, CEA, T4F, TSH3, YUSUF, [id number], CMP ####[place] [address] [place]#### METH ####[facility] , Automated eosinophil %Ordere d By: Estela Varma on 06-25-2023 Eosinophils/100 WBC (Bld) 2.5 % Normal . [facility] Comment on above: Performed By: #### C BC, MARILU, LIPASE, FE and TIBC, CEA, T4F, TSH3, YUSUF, [id number], CMP ####[address]#### METH ####[facility] , Automated eosinophil countOr dered By: Estela Varma on 06-25-2023 Eosinophils (Bld) [#/Vol] 0.2 10*3/uL Normal 0.0-0.45 [facility] Comment on above: Performed By: #### C BC, MARILU, LIPASE, FE and TIBC, CEA, T4F, TSH3, YUSUF, [id number], CMP ####[place] [address] [place]#### METH ####[facility] , Automated monocyte %Ordered By: Estela Varma on 06-25-2023 Monocytes/100 WBC (Bld) 8.7 % Normal . [facility] Comment on above: Performed By: #### C BC, MARILU, LIPASE, FE and TIBC, CEA, T4F, TSH3, YUSUF, [id number], CMP ####[place] [address] [place]#### METH ####[facility] , Automated neutrophil %Ordere d By: Estela Varma on 06-25-2023 Neutrophils/100 WBC (Bld) 78.2 % Normal . [facility] Comment on above: Performed By: #### C BC, MARILU, LIPASE, FE and TIBC, CEA, T4F, TSH3, YUSUF, [id number], CMP ####[facility] [id number]#### METH ####[facility] , Bilirubin.total [Mass/volume ] in Serum or PlasmaOrdered By: Estela Varma on 06-25-2023 Bilirubin [Mass/Vol] 1.0 mg/dL Normal 0.3-1.0 [facility] Comment on above: Performed By: #### C BC, MARILU, LIPASE, FE and TIBC, CEA, T4F, TSH3, YUSUF, [id number], CMP ####[facility]#### METH ####[facility] , CARCINOEMBRYONIC ANTIGENon 0 06-25-2023 Interpretation and review of laboratory results Abnormal [facility] CBC W Auto Differential pane l (Bld)on 06-25-2023 Basophils (Bld) [#/Vol] 0.1 10*3/uL 0.0 - 0.2 10*3/uL [facility] Basophils/100 WBC Manual cnt (Syn fld) 1.3 % . [facility] Eosinophils (Bld) [#/Vol] 0.2 10*3/uL 0.0 - 0.45 10*3/uL [facility] Eosinophils/100 WBC Manual cnt (Syn fld) 2.5 % . [facility] Erythrocyte distribution width (RBC) [Ratio] 15.5 % High 12.0 - 14.8 % [facility] Hematocrit (Bld) [Volume fraction] 40.7 % 38.8 - 50.0 % [facility] Hemoglobin (Bld) [Mass/Vol] 13.7 g/dL 13.0 - 17.0 g/dL [facility] Interpretation and review of laboratory results Abnormal [facility] Lymphocytes (Bld) [#/Vol] 0.8 10*3/uL Low 1.00 - 4.8 10*3/uL [facility] Lymphocytes/100 WBC Manual cnt (Syn fld) 9.3 % . [facility] MCH (RBC) [Entitic mass] 32.9 pg 27.5 - 35.2 pg [facility] MCHC (RBC) [Mass/Vol] 33.7 g/dL 32.5 - 35.6 g/dL [facility] MCV (RBC) [Entitic vol] 97.6 fL 83.5 - 101 fL [facility] Monocytes (Bld) [#/Vol] 0.7 10*3/uL 0.0 - 0.8 10*3/uL [facility] Monocytes+Macrophages /100 WBC Manual cnt (Syn fld) 8.7 % . [facility] Neutrophils (Bld) [#/Vol] 6.5 10*3/uL 1.8 - 7.7 10*3/uL [facility] Neutrophils/100 WBC Manual cnt (Syn fld) 78.2 % . [facility] NRBC 0.2 /100{WBC} 0 - 0.5 /100{WBC} [facility] Platelet mean volume (Bld) [Entitic vol] 7.4 fL 6.6 - 10.1 fL [facility] Platelets (Bld) [#/Vol] 196 10*3/uL 150 - 450 10*3/uL [facility] RBC LM.HPF (Urine sed) [#/Area] 4.17 /[HPF] 3.90 - 5.60 [facility] WBC (Bld) [#/Vol] 8.4 10*3/uL 4.1 - 10.5 10*3/uL [facility] WBC LM.HPF (Urine sed) [#/Area] 8.4 10*3/uL 4.1 - 10.5 10*3/uL [facility] Calcium [Mass/volume] in Ser um or PlasmaOrdered By: Estela Varma on 06-25-2023 Calcium [Mass/Vol] 8.7 mg/dL Normal 8.6-10.3 [facility] Comment on above: Performed By: #### C BC, MARILU, LIPASE, FE and TIBC, CEA, T4F, TSH3, YUSUF, [id number], CMP ####[facility] [id number]#### METH ####[facility] , Capillary blood glucose ledy urement by glucometer (mass/volume)Ordered By: Estela Varma on 06-25-2023 Glucose [Mass/Vol] 97 mg/dL Normal [facility] Comment on above: Random Glucose Refer ence Range is dependent on time and content of last meal. Glucose of more than 200 mg/dL in a nonstressed, ambulatory subject supports the diagnosis of Diabetes Mellitus. Result Comment: [place] om Glucose Reference Range is dependent on time and content of last meal. Glucose of more than 200 mg/dL in a nonstressed, ambulatory subject supports the diagnosis of Diabetes Mellitus. PERFORMED BY: [facility] [address] [place] [address] PATHOLOGIST PLASTIC MOLDING OPERATOR CATY DELCID M.D. Performed By: #### G LULS ####Point of Care testing, Carbon dioxide, total [Moles /volume] in Serum or PlasmaOrdered By: Estela Varma on 06-25-2023 CO2 [Moles/Vol] 23.2 mmol/L Normal 21.0-31.0 [facility] Comment on above: Performed By: #### C BC, MARILU, LIPASE, FE and TIBC, CEA, T4F, TSH3, YUSUF, [id number], CMP ####[place] [id number] [address]#### METH ####[facility] , Chloride [Moles/volume] in S coral or PlasmaOrdered By: Estela Varma on 06-25-2023 Chloride [Moles/Vol] 96 mmol/L Low 98-107 [facility] Comment on above: Performed By: #### C BC, MARILU, LIPASE, FE and TIBC, CEA, T4F, TSH3, YUSUF, [id number], CMP ####[place] [address] [place] [address] [place]#### METH ####[facility] , Complete Blood Count Auto Di ffon 06-25-2023 Mean Corpuscular HGB Conc 33.7 g/dL Normal 32.5-35.6 [facility] Comment on above: Performed By: #### C BC, MARILU, LIPASE, FE and TIBC, CEA, T4F, TSH3, YUSUF, [id number], CMP ####[place] [address] [place]#### METH ####[facility] , NRBC% 0.2 /100{WBC} Normal 0-0.5 [facility] Comment on above: Performed By: #### C BC, MARILU, LIPASE, FE and TIBC, CEA, T4F, TSH3, YUSUF, [id number], CMP ####[address]#### METH ####[facility] , Comprehensive Metabolic Pane nicolas 06-25-2023 Albumin [Mass/Vol] 3.9 g/dL Normal 3.5-5.7 [facility] Comment on above: Performed By: #### C BC, MARILU, LIPASE, FE and TIBC, CEA, T4F, TSH3, YUSUF, [id number], CMP ####[address]#### METH ####[facility] , Creatinine Clr Calc Pharmacy 108.93 Normal [facility] Comment on above: Performed By: #### C BC, MARILU, LIPASE, FE and TIBC, CEA, T4F, TSH3, YUSUF, [id number], CMP ####[place] [address] [place]#### METH ####[facility] , GFR/1.73 sq M.predicted MDRD (S/P/Bld) [Vol rate/Area] mL/min/{1.73_m2} Normal [facility] Comment on above: Performed By: #### C BC, MARILU, LIPASE, FE and TIBC, CEA, T4F, TSH3, YUSUF, [id number], CMP ####[place] [address] [place]#### METH ####[facility] , Creatinine [Mass/volume] in Serum or PlasmaOrdered By: Estela Varma on 06-25-2023 Creatinine [Mass/Vol] 0.70 mg/dL Normal 0.70-1.30 [facility] Comment on above: Performed By: #### C BC, MARILU, LIPASE, FE and TIBC, CEA, T4F, TSH3, YUSUF, [id number], CMP ####[address]#### METH ####[facility] , Erythrocyte distribution wid th [Ratio] by Automated countOrdered By: Estela Varma on 06-25-2023 Erythrocyte distribution width (RBC) [Ratio] 15.5 % High 12.0-14.8 [facility] Comment on above: Performed By: #### C BC, MARILU, LIPASE, FE and TIBC, CEA, T4F, TSH3, YUSUF, [id number], CMP ####[address]#### METH ####[facility] , Erythrocytes [#/volume] in B lood by Automated countOrdered By: Estela Varma on 06-25-2023 RBC (Bld) [#/Vol] 4.17 10*6/uL Normal 3.90-5.60 [facility] Comment on above: Performed By: #### C BC, MARILU, LIPASE, FE and TIBC, CEA, T4F, TSH3, YUSUF, [id number], CMP ####[address]#### METH ####[facility] , Ferritin [Mass/volume] in Se rum or PlasmaOrdered By: Estela Varma on 06-25-2023 Ferritin [Mass/Vol] 207.7 ng/mL Normal 23.9-336.2 [facility] Comment on above: Performed By: #### C BC, MARILU, LIPASE, FE and TIBC, CEA, T4F, TSH3, YUSUF, [id number], CMP ####[facility] [id number] [place] [address] [facility]#### METH ####[facility] , Folate [Mass/volume] in Seru m or PlasmaOrdered By: Estela Varma on 06-25-2023 Folate [Mass/Vol] 9.6 ng/mL >5.9 [facility] Comment on above: Folate reference ran ge: >5.9 ng/mlThe WHO technical consultation on folate and vitamin [id number] has determined that folate concentrations lessthan 4 ng/ml are considered deficient. GLUCOSE POCT GLUCOMETERSon 0 06-25-2023 Glucose [Mass/Vol] 97 mg/dL [facility] Comment on above: Random Glucose Refer ence Range is dependent on time and content of last meal. Glucose of more than 200 mg/dL in a nonstressed, ambulatory subject supports the diagnosis of Diabetes Mellitus. [facility] Glucose [Mass/volume] in Ser um or PlasmaOrdered By: Estela Varma on 06-25-2023 Glucose [Mass/Vol] 89 mg/dL Normal 70-100 [facility] Comment on above: ADA recommended refe rence rangeRandom Glucose Reference Range is dependent on time and content of last meal. Glucose of more than 200 mg/dL in a nonstressed, ambulatory subject supports the diagnosis of Diabetes Mellitus. Result Comment: [place] om Glucose Reference Range is dependent on time and content of last meal. Glucose of more than 200 mg/dL in a nonstressed, ambulatory subject supports the diagnosis of Diabetes Mellitus. ADA recommended reference range Performed By: #### C BC, MARILU, LIPASE, FE and TIBC, CEA, T4F, TSH3, YUSUF, [id number], CMP ####[facility] [id number] [place] [address] [place]#### METH ####[facility] , Hematocrit [Volume Fraction] of Blood by Automated countOrdered By: Estela Varma on 06-25-2023 Hematocrit (Bld) [Volume fraction] 40.7 % Normal 38.8-50.0 [facility] Comment on above: Performed By: #### C BC, MARILU, LIPASE, FE and TIBC, CEA, T4F, TSH3, YUSUF, [id number], CMP ####[address]#### METH ####[facility] , Hemoglobin [Mass/volume] in BloodOrdered By: Estela Varma on 06-25-2023 Hemoglobin (Bld) [Mass/Vol] 13.7 g/dL Normal 13.0-17.0 [facility] Comment on above: Performed By: #### C BC, MARILU, LIPASE, FE and TIBC, CEA, T4F, TSH3, YUSUF, [id number], CMP ####[place] [address] [place]#### METH ####[facility] , Iron [Mass/volume] in Serum or PlasmaOrdered By: Estela Varma on 06-25-2023 Iron [Mass/Vol] 159 ug/dL Normal 50-212 [facility] Comment on above: Performed By: #### C BC, MARILU, LIPASE, FE and TIBC, CEA, T4F, TSH3, YUSUF, [id number], CMP ####[place] [address] [place]#### METH ####[facility] , Iron and TIBC Profileon 06-14 % Iron Saturation 65.7 % High 20-50 [facility] Comment on above: Performed By: #### C BC, MARILU, LIPASE, FE and TIBC, CEA, T4F, TSH3, YUSUF, [id number], CMP ####[place] [address] [place]#### METH ####[facility] , Total Iron Binding Capacity 242 ug/dL Low 255-450 [facility] Comment on above: Performed By: #### C BC, MARILU, LIPASE, FE and TIBC, CEA, T4F, TSH3, YUSUF, [id number], CMP ####[facility]#### METH ####[facility] , Iron binding capacity [Mass/ volume] in Serum or PlasmaOrdered By: Estela Varma on 06-25-2023 Iron binding capacity [Mass/Vol] 242 ug/dL 255-450 [facility] Iron saturation [Mass Fracti on] in Serum or PlasmaOrdered By: Estela Varma on 06-25-2023 Iron saturation [Mass fraction] 65.7 % 20-50 [facility] Leukocytes [#/volume] correc chris for nucleated erythrocytes in Blood by Automated counOrdered By: Estela Varma on 06-25-2023 WBC corrected for nucl RBC Auto (Bld) [#/Vol] 8.4 10*3/uL 4.1-10.5 [facility] Leukocytes [#/volume] in Blo od by Automated countOrdered By: Estela Varma on 06-25-2023 WBC (Bld) [#/Vol] 8.4 10*3/uL Normal 4.1-10.5 [facility] Comment on above: Performed By: #### C BC, MARILU, LIPASE, FE and TIBC, CEA, T4F, TSH3, YUSUF, [id number], CMP ####[facility]#### METH ####[facility] , Lipase [Enzymatic activity/v olume] in Serum or PlasmaOrdered By: Estela Varma on 06-25-2023 Lipase [Catalytic activity/Vol] 36.0 U/L Normal 11.0-82.0 [facility] Comment on above: Performed By: #### C BC, MARILU, LIPASE, FE and TIBC, CEA, T4F, TSH3, YUSUF, [id number], CMP ####[facility]#### METH ####[facility] , Lymphocytes [#/volume] in Bl ood by Automated countOrdered By: Estela Varma on 06-25-2023 Lymphocytes (Bld) [#/Vol] 0.8 10*3/uL Low 1.00-4.8 [facility] Comment on above: Performed By: #### C BC, MARILU, LIPASE, FE and TIBC, CEA, T4F, TSH3, YUSUF, [id number], CMP ####[address]#### METH ####[facility] , Lymphocytes/100 leukocytes i n Blood by Automated countOrdered By: Estela Varma on 06-25-2023 Lymphocytes/100 WBC (Bld) 9.3 % Normal . [facility] Comment on above: Performed By: #### C BC, MARILU, LIPASE, FE and TIBC, CEA, T4F, TSH3, YUSUF, [id number], CMP ####[address]#### METH ####[facility] , MCH [Entitic mass] by Automa chris countOrdered By: Estela Varma on 06-25-2023 MCH (RBC) [Entitic mass] 32.9 pg Normal 27.5-35.2 [facility] Comment on above: Performed By: #### C BC, MARILU, LIPASE, FE and TIBC, CEA, T4F, TSH3, YUSUF, [id number], CMP ####[address] [address]#### METH ####[facility] , MCHC Auto (RBC) [Mass/Vol]Or dered By: Estela Varma on 06-25-2023 MCHC (RBC) [Mass/Vol] 33.7 g/dL 32.5-35.6 [facility] MCV [Entitic volume] by Auto mated countOrdered By: Estela Varma on 06-25-2023 MCV (RBC) [Entitic vol] 97.6 fL Normal 83.5-101 [facility] Comment on above: Performed By: #### C BC, MARILU, LIPASE, FE and TIBC, CEA, T4F, TSH3, YUSUF, [id number], CMP ####[address]#### METH ####[facility] , Methylmalonic Acidon 024 Methylmalonic Acid 115 Normal 0-378 [facility] Comment on above: Result Comment: This test was developed and its performance characteristics determined by [facility]. It has not been cleared or approved by the Food and Drug Administration. Performed at: [address] [id number] Orthopaedic Surgeon: Loc De Jesus MD, Phone: [phone] PERFORMED BY: [place] [address] PATHOLOGIST PLASTIC MOLDING OPERATOR CATY DELCID M.D. Performed By: #### C BC, MARILU, LIPASE, FE and TIBC, CEA, T4F, TSH3, YUSUF, [id number], CMP ####[address]#### METH ####[facility] , Neutrophils [#/volume] in Bl ood by Automated countOrdered By: Estela Varma on 06-25-2023 Neutrophils (Bld) [#/Vol] 6.5 10*3/uL Normal 1.8-7.7 [facility] Comment on above: Performed By: #### C BC, MARILU, LIPASE, FE and TIBC, CEA, T4F, TSH3, YUSUF, [id number], CMP ####[address]#### METH ####[facility] , No Panel InformationOrdered By: Estela Varma on 06-25-2023 Estimated GFR (CKD-EPI) > 60.0 mL/Min [facility] Creatinine Clearance (Chem 108.93 [facility] Nucleated erythrocytes [Pres ence] in Blood by Automated countOrdered By: Estela Varma on 06-25-2023 Nucleated RBC Auto Ql (Bld) 0.2 /100{WBC} 0-0.5 [facility] PET tumor subq tx strat sb-m ton 06-25-2023 PET tumor subq tx strat sb-mt [facility] [place] [address] [place] [address] Nuclear Medicine Report Signed Patient: Kirill Echols MR#: [id number] : 1965 Acct:[id number] Age/Sex: 58 / M ADM Date: 06/25/23 Loc: Room: Type: [facility] RCR Attending Dr: Estela Varma II, DO Copies to: Victorino Ellison Jr, DO [...] Ellison Jr., D.O.06/25/2023 10:28 AM Dictation Location: [place] [address] Transcribed By: MARU 06/25/23 1028 Dictated By: Victorino Ellison Jr, DO 06/25/23 1017 Signed By: 06/25/23 1028 Normal [facility] Platelet mean volume [Entiti c volume] in Blood by Automated countOrdered By: Estela Varma on 06-25-2023 Platelet mean volume (Bld) [Entitic vol] 7.4 fL Normal 6.6-10.1 [facility] Comment on above: Performed By: #### C BC, MARILU, LIPASE, FE and TIBC, CEA, T4F, TSH3, YUSUF, [id number], CMP ####[address]#### METH ####[facility] , Platelets [#/volume] in Bloo d by Automated countOrdered By: Estela Varma on 06-25-2023 Platelets (Bld) [#/Vol] 196 10*3/uL Normal 150-450 [facility] Comment on above: Performed By: #### C BC, MARILU, LIPASE, FE and TIBC, CEA, T4F, TSH3, YUSUF, [id number], CMP ####[address]#### METH ####[facility] , Potassium [Moles/volume] in Serum or PlasmaOrdered By: Estela Varma on 06-25-2023 Potassium [Moles/Vol] 4.2 mmol/L Normal 3.5-5.1 [facility] Comment on above: Performed By: #### C BC, MARILU, LIPASE, FE and TIBC, CEA, T4F, TSH3, YUSUF, [id number], CMP ####[address]#### METH ####[facility] , Protein [Mass/volume] in Ser um or PlasmaOrdered By: Estela Varma on 06-25-2023 Protein [Mass/Vol] 6.9 g/dL Normal 6.4-8.9 [facility] Comment on above: Performed By: #### C BC, MARILU, LIPASE, FE and TIBC, CEA, T4F, TSH3, YUSUF, [id number], CMP ####[address] [place] [address] [place]#### METH ####[facility] , Serum globulin measurement b y calculation (mass/volume)Ordered By: Estela Varma on 06-25-2023 Globulin (S) [Mass/Vol] 3.0 g/dL [facility] Comment on above: Performed By: #### C BC, MARILU, LIPASE, FE and TIBC, CEA, T4F, TSH3, YUSUF, [id number], CMP ####[address]#### METH ####[facility] , Serum or plasma albumin/glob ulin mass ratioOrdered By: Estela Varma on 06-25-2023 Albumin/Globulin [Mass ratio] 1.3 {ratio} [facility] Comment on above: Performed By: #### C BC, MARILU, LIPASE, FE and TIBC, CEA, T4F, TSH3, YUSUF, [id number], CMP ####[address]#### METH ####[facility] , Serum or plasma anion gap de terminationOrdered By: Estela Varma on 06-25-2023 Anion gap [Moles/Vol] 11.0 mmol/L Normal 6.0-15.0 [facility] Comment on above: Performed By: #### C BC, MARILU, LIPASE, FE and TIBC, CEA, T4F, TSH3, YUSUF, [id number], CMP ####[place] [address] [place]#### METH ####[facility] , Serum or plasma carcinoembry onic antigen measurement (mass/volume)Ordered By: Estela Varma on 06-25-2023 Carcinoembryonic Ag [Mass/Vol] 9.4 ng/mL 0.0-3.0 [facility] Comment on above: Serial tumor marker results determined by assays using different manufacturers or methods may not be comparable.[facility] stock room manager and method:VALENTINE UNICEL DXI, 2 SITE IMMUNOENZYMATIC SANDWICH ASSAY. Sodium [Moles/volume] in Ser um or PlasmaOrdered By: Estela Varma on 06-25-2023 Sodium [Moles/Vol] 126 mmol/L Low 136-145 [facility] Comment on above: Performed By: #### C BC, MARILU, LIPASE, FE and TIBC, CEA, T4F, TSH3, YUSUF, [id number], CMP ####[address]#### METH ####[facility] , Thyrotropin [Units/volume] i n Serum or PlasmaOrdered By: Estela Varma on 06-25-2023 TSH Qn 9.92 m[IU]/L High 0.45-5.33 [facility] Comment on above: Result Comment: PERF ORMED BY: [facility] [address] [place] [address] PATHOLOGIST PLASTIC MOLDING OPERATOR CATY DELCID M.D. Performed By: #### C BC, MARILU, LIPASE, FE and TIBC, CEA, T4F, TSH3, YUSUF, [id number], CMP ####[address]#### METH ####[facility] , Thyroxine (T4) free [Mass/vo lume] in Serum or PlasmaOrdered By: Estela Varma on 06-25-2023 Free T4 [Mass/Vol] 0.71 ng/dL Normal 0.61-1.12 [facility] Comment on above: Performed By: #### C BC, MARILU, LIPASE, FE and TIBC, CEA, T4F, TSH3, YUSUF, [id number], CMP ####[place] [address] [place]#### METH ####[facility] , Transferrin [Mass/volume] in Serum or PlasmaOrdered By: Estela Varma on 06-25-2023 Transferrin [Mass/Vol] 173 mg/dL Low 203-362 [facility] Comment on above: Performed By: #### C BC, MARILU, LIPASE, FE and TIBC, CEA, T4F, TSH3, YUSUF, [id number], CMP ####[address]#### METH ####[facility] , Urea nitrogen [Mass/volume] in Serum or PlasmaOrdered By: Estela Varma on 06-25-2023 Urea nitrogen [Mass/Vol] 5 mg/dL Low 7-25 [facility] Comment on above: Performed By: #### C BC, MARILU, LIPASE, FE and TIBC, CEA, T4F, TSH3, YUSUF, [id number], CMP ####[address]#### METH ####[facility] , Vit. B12/Folate Profileon Folate 9.6 ng/mL Normal >5.9 [facility] Comment on above: Result Comment: Estrella te reference range: >5.9 ng/ml The WHO technical consultation on folate and vitamin b12 deficiencies has determined that folate concentrations less than 4 ng/ml are considered deficient. Performed By: #### C BC, MARILU, LIPASE, FE and TIBC, CEA, T4F, TSH3, YUSUF, [id number], CMP ####[place] [address] [place]#### METH ####[facility] , Vitamin B12 ser/plasOrdered By: Estela Varma on 06-25-2023 Cobalamin (Vitamin B12) [Mass/Vol] 309 pg/mL Normal 180-914 [facility] Comment on above: Performed By: #### C BC, MARILU, LIPASE, FE and TIBC, CEA, T4F, TSH3, YUSUF, [id number], CMP ####[place] [address] [place]#### METH ####[facility] , Amylaseon 03-30-2023 Amylase [Catalytic activity/Vol] 48 U/L Normal 29-103 [facility] Comment on above: Performed By: #### C EA, CBC, FOL, B12, CMP, FE and TIBC, LIPASE, MARILU, T4F #### [address] #### METH #### [facility] , Complete Blood Count Auto Di ffon 03-30-2023 Basophils (Bld) [#/Vol] 0.0 10*3/uL Normal 0.0-0.2 [facility] Comment on above: Result Comment: PERF ORMED BY: [place] [address] PATHOLOGIST PLASTIC MOLDING OPERATOR CATY DELCID M.D. Performed By: #### C EA, CBC, FOL, B12, CMP, FE and TIBC, LIPASE, MARILU, T4F #### [address] #### METH #### [facility] , Basophils/100 WBC (Bld) 0.6 % Normal . [facility] Comment on above: Performed By: #### C EA, CBC, FOL, B12, CMP, FE and TIBC, LIPASE, MARILU, T4F #### [address] #### METH #### [facility] , Eosinophils (Bld) [#/Vol] 0.2 10*3/uL Normal 0.0-0.45 [facility] Comment on above: Performed By: #### C EA, CBC, FOL, B12, CMP, FE and TIBC, LIPASE, MARILU, T4F #### [address] #### METH #### [facility] , Eosinophils/100 WBC (Bld) 4.8 % Normal . [facility] Comment on above: Performed By: #### C EA, CBC, FOL, B12, CMP, FE and TIBC, LIPASE, MARILU, T4F #### [address] #### METH #### [facility] , Erythrocyte distribution width (RBC) [Ratio] 15.7 % High 12.0-14.8 [facility] Comment on above: Performed By: #### C EA, CBC, FOL, B12, CMP, FE and TIBC, LIPASE, MARILU, T4F #### [address] #### METH #### [facility] , Hematocrit (Bld) [Volume fraction] 39.3 % Normal 38.8-50.0 [facility] Comment on above: Performed By: #### C EA, CBC, FOL, B12, CMP, FE and TIBC, LIPASE, MARILU, T4F #### [place] [address] [place] #### METH #### [facility] , Hemoglobin (Bld) [Mass/Vol] 13.3 g/dL Normal 13.0-17.0 [facility] Comment on above: Performed By: #### C EA, CBC, FOL, B12, CMP, FE and TIBC, LIPASE, MARILU, T4F #### [address] #### METH #### [facility] , Lymphocytes (Bld) [#/Vol] 0.8 10*3/uL Low 1.00-4.8 [facility] Comment on above: Performed By: #### C EA, CBC, FOL, B12, CMP, FE and TIBC, LIPASE, MARILU, T4F #### [place] [address] [place] #### METH #### [facility] , Lymphocytes/100 WBC (Bld) 14.7 % Normal . [facility] Comment on above: Performed By: #### C EA, CBC, FOL, B12, CMP, FE and TIBC, LIPASE, MARILU, T4F #### [address] #### METH #### [facility] , MCH (RBC) [Entitic mass] 33.1 pg Normal 27.5-35.2 [facility] Comment on above: Performed By: #### C EA, CBC, FOL, B12, CMP, FE and TIBC, LIPASE, MARILU, T4F #### [address] #### METH #### [facility] , MCV (RBC) [Entitic vol] 98.1 fL Normal 83.5-101 [facility] Comment on above: Performed By: #### C EA, CBC, FOL, B12, CMP, FE and TIBC, LIPASE, MARILU, T4F #### [address] #### METH #### [facility] , Mean Corpuscular HGB Conc 33.8 g/dL Normal 32.5-35.6 [facility] Comment on above: Performed By: #### C EA, CBC, FOL, B12, CMP, FE and TIBC, LIPASE, MARILU, T4F #### [address] #### METH #### [facility] , Monocytes (Bld) [#/Vol] 0.6 10*3/uL Normal 0.0-0.8 [facility] Comment on above: Performed By: #### C EA, CBC, FOL, B12, CMP, FE and TIBC, LIPASE, MARILU, T4F #### [place] [address] [place] #### METH #### [facility] , Monocytes/100 WBC (Bld) 12.2 % Normal . [facility] Comment on above: Performed By: #### C EA, CBC, FOL, B12, CMP, FE and TIBC, LIPASE, MARILU, T4F #### [address] #### METH #### [facility] , Neutrophils (Bld) [#/Vol] 3.5 10*3/uL Normal 1.8-7.7 [facility] Comment on above: Performed By: #### C EA, CBC, FOL, B12, CMP, FE and TIBC, LIPASE, MARILU, T4F #### [address] #### METH #### [facility] , Neutrophils/100 WBC (Bld) 67.7 % Normal . [facility] Comment on above: Performed By: #### C EA, CBC, FOL, B12, CMP, FE and TIBC, LIPASE, MARILU, T4F #### [address] #### METH #### [facility] , NRBC% 0.1 /100{WBC} Normal 0-0.5 [facility] Comment on above: Performed By: #### C EA, CBC, FOL, B12, CMP, FE and TIBC, LIPASE, MARILU, T4F #### [address] #### METH #### [facility] , Platelet mean volume (Bld) [Entitic vol] 7.3 fL Normal 6.6-10.1 [facility] Comment on above: Performed By: #### C EA, CBC, FOL, B12, CMP, FE and TIBC, LIPASE, MARILU, T4F #### [place] [address] [place] #### METH #### [facility] , Platelets (Bld) [#/Vol] 155 10*3/uL Normal 150-450 [facility] Comment on above: Performed By: #### C EA, CBC, FOL, B12, CMP, FE and TIBC, LIPASE, MARILU, T4F #### [place] [address] [place] #### METH #### [facility] , RBC (Bld) [#/Vol] 4.00 10*6/uL Normal 3.90-5.[address] [facility] Comment on above: Performed By: #### C EA, CBC, FOL, B12, CMP, FE and TIBC, LIPASE, MARILU, T4F #### [place] [address] [place] #### METH #### [facility] , WBC (Bld) [#/Vol] 5.2 10*3/uL Normal 4.1-10.5 [facility] Comment on above: Performed By: #### C EA, CBC, FOL, B12, CMP, FE and TIBC, LIPASE, MARILU, T4F #### [address] #### METH #### [facility] , Comprehensive Metabolic Pane nicolas 03-30-2023 Albumin [Mass/Vol] 3.9 g/dL Normal 3.5-5.7 [facility] Comment on above: Performed By: #### C EA, CBC, FOL, B12, CMP, FE and TIBC, LIPASE, MARILU, T4F #### [address] #### METH #### [facility] , Albumin/Globulin [Mass ratio] 1.3 {ratio} Normal [facility] Comment on above: Performed By: #### C EA, CBC, FOL, B12, CMP, FE and TIBC, LIPASE, MARILU, T4F #### [place] [address] [place] #### METH #### [facility] , ALP [Catalytic activity/Vol] 136 U/L High 34-104 [facility] Comment on above: Performed By: #### C EA, CBC, FOL, B12, CMP, FE and TIBC, LIPASE, MARILU, T4F #### [place] [address] [place] #### METH #### [facility] , ALT [Catalytic activity/Vol] 11 U/L Normal 7-52 [facility] Comment on above: Performed By: #### C EA, CBC, FOL, B12, CMP, FE and TIBC, LIPASE, MARILU, T4F #### [place] [address] [place] #### METH #### [facility] , Anion gap [Moles/Vol] 10.4 mmol/L Normal 6.0-15.0 [facility] Comment on above: Performed By: #### C EA, CBC, FOL, B12, CMP, FE and TIBC, LIPASE, MARILU, T4F #### [address] #### METH #### [facility] , AST [Catalytic activity/Vol] 18 U/L Normal 13-39 [facility] Comment on above: Performed By: #### C EA, CBC, FOL, B12, CMP, FE and TIBC, LIPASE, MARILU, T4F #### [place] [address] [place] #### METH #### [facility] , Bilirubin [Mass/Vol] 0.7 mg/dL Normal 0.3-1.0 [facility] Comment on above: Performed By: #### C EA, CBC, FOL, B12, CMP, FE and TIBC, LIPASE, MARILU, T4F #### [place] [address] [place] #### METH #### [facility] , Calcium [Mass/Vol] 8.5 mg/dL Low 8.6-10.3 [facility] Comment on above: Performed By: #### C EA, CBC, FOL, B12, CMP, FE and TIBC, LIPASE, MARILU, T4F #### [address] #### METH #### [facility] , Chloride [Moles/Vol] 102 mmol/L Normal 98-107 [facility] Comment on above: Performed By: #### C EA, CBC, FOL, B12, CMP, FE and TIBC, LIPASE, MARILU, T4F #### [address] #### METH #### [facility] , CO2 [Moles/Vol] 21.7 mmol/L Normal 21.0-31.0 [facility] Comment on above: Performed By: #### C EA, CBC, FOL, B12, CMP, FE and TIBC, LIPASE, MARILU, T4F #### [address] #### METH #### [facility] , Creatinine [Mass/Vol] 0.80 mg/dL Normal 0.70-1.30 [facility] Comment on above: Performed By: #### C EA, CBC, FOL, B12, CMP, FE and TIBC, LIPASE, MARILU, T4F #### [address] #### METH #### [facility] , Creatinine Clr Calc Pharmacy 96.47 Normal [facility] Comment on above: Performed By: #### C EA, CBC, FOL, B12, CMP, FE and TIBC, LIPASE, MARILU, T4F #### [address] #### METH #### [facility] , GFR/1.73 sq M.predicted MDRD (S/P/Bld) [Vol rate/Area] mL/min/{1.73_m2} Normal [facility] Comment on above: Performed By: #### C EA, CBC, FOL, B12, CMP, FE and TIBC, LIPASE, MARILU, T4F #### [place] [address] [place] #### METH #### [facility] , Globulin (S) [Mass/Vol] 2.9 g/dL Normal [facility] Comment on above: Performed By: #### C EA, CBC, FOL, B12, CMP, FE and TIBC, LIPASE, MARILU, T4F #### [place] [address] [place] #### METH #### [facility] , Glucose [Mass/Vol] 84 mg/dL Normal 70-100 [facility] Comment on above: Result Comment: [facility] Glucose Reference Range is dependent on time and content of last meal. Glucose of more than 200 mg/dL in a nonstressed, ambulatory subject supports the diagnosis of Diabetes Mellitus. ADA recommended reference range Performed By: #### C EA, CBC, FOL, B12, CMP, FE and TIBC, LIPASE, MARILU, T4F #### [place] [address] [place] #### METH #### [facility] , Potassium [Moles/Vol] 4.1 mmol/L Normal 3.5-5.1 [facility] Comment on above: Performed By: #### C EA, CBC, FOL, B12, CMP, FE and TIBC, LIPASE, MARILU, T4F #### [place] [address] [place] #### METH #### [facility] , Protein [Mass/Vol] 6.8 g/dL Normal 6.4-8.9 [facility] Comment on above: Performed By: #### C EA, CBC, FOL, B12, CMP, FE and TIBC, LIPASE, MARILU, T4F #### [place] [address] [place] #### METH #### [facility] , Sodium [Moles/Vol] 130 mmol/L Low 136-145 [facility] Comment on above: Performed By: #### C EA, CBC, FOL, B12, CMP, FE and TIBC, LIPASE, MARILU, T4F #### [place] [address] [place] #### METH #### [facility] , Urea nitrogen [Mass/Vol] 5 mg/dL Low 7-25 [facility] Comment on above: Performed By: #### C EA, CBC, FOL, B12, CMP, FE and TIBC, LIPASE, MARILU, T4F #### [place] [address] [place] #### METH #### [facility] , Folateon 03-30-2023 Folate 15.4 ng/mL Normal >5.9 [facility] Comment on above: Result Comment: Estrella te reference range: >5.9 ng/ml The WHO technical consultation on folate and vitamin b12 deficiencies has determined that folate concentrations less than 4 ng/ml are considered deficient. Performed By: #### C EA, CBC, FOL, B12, CMP, FE and TIBC, LIPASE, MARILU, T4F #### [place] [address] [place] #### METH #### [facility] , Free T4 (Free Thyroxine)on 05-30-2022 Free T4 [Mass/Vol] 0.50 ng/dL Low 0.61-1.12 [facility] Comment on above: Result Comment: PERF ORMED BY: [place] [address] PATHOLOGIST PLASTIC MOLDING OPERATOR CATY DELCID M.D. Performed By: #### C EA, CBC, FOL, B12, CMP, FE and TIBC, LIPASE, MARILU, T4F ####[facility] [place] [address] [place]#### METH ####[facility] , Iron and TIBC Profileon 03-14 % Iron Saturation 67.5 % High 20-50 [facility] Comment on above: Performed By: #### C EA, CBC, FOL, B12, CMP, FE and TIBC, LIPASE, MARILU, T4F #### [place] [address] [place] #### METH #### [facility] , Iron [Mass/Vol] 154 ug/dL Normal 50-212 [facility] Comment on above: Performed By: #### C EA, CBC, FOL, B12, CMP, FE and TIBC, LIPASE, MARILU, T4F #### [facility] [address] [place] [address] [place] #### METH #### [facility] , Total Iron Binding Capacity 228 ug/dL Low 255-450 [facility] Comment on above: Performed By: #### C EA, CBC, FOL, B12, CMP, FE and TIBC, LIPASE, MARILU, T4F #### [address] #### METH #### [facility] , Transferrin [Mass/Vol] 163 mg/dL Low 203-362 [facility] Comment on above: Performed By: #### C EA, CBC, FOL, B12, CMP, FE and TIBC, LIPASE, MARILU, T4F #### [place] [address] [place] #### METH #### [facility] , Lipaseon 03-30-2023 Lipase [Catalytic activity/Vol] 22.0 U/L Normal 11.0-82.0 [facility] Comment on above: Performed By: #### C EA, CBC, FOL, B12, CMP, FE and TIBC, LIPASE, MARILU, T4F #### [place] [address] [place] #### METH #### [facility] , Methylmalonic Acidon 023 Methylmalonic Acid 129 Normal 0-378 [facility] Comment on above: Result Comment: This test was developed and its performance characteristics determined by [facility]. It has not been cleared or approved by the Food and Drug Administration. Performed at: [address], [place] [id number] Orthopaedic Surgeon: Loc De Jesus MD, Phone: [phone] PERFORMED BY: [place] [address] PATHOLOGIST PLASTIC MOLDING OPERATOR CATY DELCID M.D. Performed By: #### C EA, CBC, FOL, B12, CMP, FE and TIBC, LIPASE, MARILU, T4F ####[place] [id number] [address]#### METH ####[facility] , Serum or plasma methylmalona te measurement (moles/volume)Ordered By: Estela Varma on 03-30-2023 Methylmalonate [Moles/Vol] 129 nmol/L 0-378 [facility] Comment on above: This test was develo ped and its performance characteristicsdetermined by [facility]. It has not been cleared orapproved by the Food and Drug Administration.Performed at: [address] [id number] Director: Loc De Jesus MD, Phone: [phone] Vitamin B12on 03-30-2023 Cobalamin (Vitamin B12) [Mass/Vol] 462 pg/mL Normal 180-914 [facility] Comment on above: Performed By: #### C EA, CBC, FOL, B12, CMP, FE and TIBC, LIPASE, MARILU, T4F #### [address] #### METH #### [facility] , Alanine aminotransferase [En zymatic activity/volume] in Serum or PlasmaOrdered By: Estela Varma on 12-22-2022 ALT [Catalytic activity/Vol] 13 U/L Normal 7-52 [facility] Comment on above: Performed By: #### C MP, CBC ####[place] [id number] [address] Albumin [Mass/volume] in Ser um or Plasma by Bromocresol green (BCG) dye binding methoOrdered By: Estela Varma on 12-22-2022 Albumin BCG dye [Mass/Vol] 3.7 g/dL 3.5-5.7 [facility] Alkaline phosphatase [Enzyma tic activity/volume] in Serum or PlasmaOrdered By: Estela Varma on 12-22-2022 ALP [Catalytic activity/Vol] 122 U/L High 34-104 [facility] Comment on above: Performed By: #### C MP, CBC ####[address] Aspartate aminotransferase [ Enzymatic activity/volume] in Serum or PlasmaOrdered By: Estela Varma on 12-22-2022 AST [Catalytic activity/Vol] 17 U/L Normal 13-39 [facility] Comment on above: Performed By: #### C MP, CBC ####[address] Automated basophil %Ordered By: Estela Varma on 12-22-2022 Basophils/100 WBC (Bld) 1.3 % Normal . [facility] Comment on above: Performed By: #### C MP, CBC ####[place] [id number] [facility] Automated basophil countOrde red By: Estela Varma on 12-22-2022 Basophils (Bld) [#/Vol] 0.1 10*3/uL Normal 0.0-0.2 [facility] Comment on above: Result Comment: PERF ORMED BY: [facility] [address] [place] [address] PATHOLOGIST PLASTIC MOLDING OPERATOR CATY DELCID M.D. Performed By: #### C MP, CBC ####[place] [id number] [facility] Automated blood monocyte cou ntOrdered By: Estela Varma on 12-22-2022 Monocytes (Bld) [#/Vol] 0.5 10*3/uL Normal 0.0-0.8 [facility] Comment on above: Performed By: #### C MP, CBC ####[address] Automated eosinophil %Ordere d By: Estela Varma on 12-22-2022 Eosinophils/100 WBC (Bld) 5.0 % Normal . [facility] Comment on above: Performed By: #### C MP, CBC ####[address] Automated eosinophil countOr dered By: Estela Varma on 12-22-2022 Eosinophils (Bld) [#/Vol] 0.3 10*3/uL Normal 0.0-0.45 [facility] Comment on above: Performed By: #### C MP, CBC ####[address] Automated monocyte %Ordered By: Estela Varma on 12-22-2022 Monocytes/100 WBC (Bld) 7.8 % Normal . [facility] Comment on above: Performed By: #### C MP, CBC ####[address] Automated neutrophil %Ordere d By: Estela Varma on 12-22-2022 Neutrophils/100 WBC (Bld) 70.2 % Normal . [facility] Comment on above: Performed By: #### C MP, CBC ####[address] Bilirubin.total [Mass/volume ] in Serum or PlasmaOrdered By: Estela Varma on 12-22-2022 Bilirubin [Mass/Vol] 0.5 mg/dL Normal 0.3-1.0 [facility] Comment on above: Performed By: #### C MP, CBC ####[place] [id number] [facility] Calcium [Mass/volume] in Ser um or PlasmaOrdered By: Estela Varma on 12-22-2022 Calcium [Mass/Vol] 8.0 mg/dL Low 8.6-10.3 [facility] Comment on above: Performed By: #### C MP, CBC ####[place] [id number] [facility] Capillary blood glucose ledy urement by glucometer (mass/volume)Ordered By: Estela Varma on 12-22-2022 Glucose [Mass/Vol] 71 mg/dL Normal [facility] Comment on above: Random Glucose Refer ence Range is dependent on time and content of last meal. Glucose of more than 200 mg/dL in a nonstressed, ambulatory subject supports the diagnosis of Diabetes Mellitus. Result Comment: [place] om Glucose Reference Range is dependent on time and content of last meal. Glucose of more than 200 mg/dL in a nonstressed, ambulatory subject supports the diagnosis of Diabetes Mellitus. PERFORMED BY: [facility] [address] [place] [id number] PATHOLOGIST PLASTIC MOLDING OPERATOR CATY DELCID M.D. Performed By: #### G TERRY #### Point of Care testing , Carbon dioxide, total [Moles /volume] in Serum or PlasmaOrdered By: Estela Varma on 12-22-2022 CO2 [Moles/Vol] 23.2 mmol/L Normal 21.0-31.0 [facility] Comment on above: Performed By: #### C MP, CBC ####[place] [id number] [facility] Chloride [Moles/volume] in S coral or PlasmaOrdered By: Estela Varma on 12-22-2022 Chloride [Moles/Vol] 100 mmol/L Normal 98-107 [facility] Comment on above: Performed By: #### C MP, CBC ####[place] [id number] [facility] Complete Blood Count Auto Di ffon 12-22-2022 Mean Corpuscular HGB Conc 33.5 g/dL Normal 32.5-35.6 [facility] Comment on above: Performed By: #### C MP, CBC ####[place] [id number] [facility] NRBC% 0.0 /100{WBC} Normal 0-0.5 [facility] Comment on above: Performed By: #### C MP, CBC ####[place] [id number] [facility] Comprehensive Metabolic Pane nicolas 12-22-2022 Albumin [Mass/Vol] 3.7 g/dL Normal 3.5-5.7 [facility] Comment on above: Performed By: #### C MP, CBC ####[place] [id number] [facility] Creatinine Clr Calc Pharmacy 114.05 Normal [facility] Comment on above: Result Comment: PERF ORMED BY: [facility] [address] [place] [id number] PATHOLOGIST PLASTIC MOLDING OPERATOR CATY DELCID M.D. Performed By: #### C MP, CBC ####[address] GFR/1.73 sq M.predicted MDRD (S/P/Bld) [Vol rate/Area] mL/min/{1.73_m2} Normal [facility] Comment on above: Performed By: #### C MP, CBC ####[address] Creatinine [Mass/volume] in Serum or PlasmaOrdered By: Estela Varma on 12-22-2022 Creatinine [Mass/Vol] 0.69 mg/dL Low 0.70-1.30 [facility] Comment on above: Performed By: #### C MP, CBC ####[address] Erythrocyte distribution wid th [Ratio] by Automated countOrdered By: Estela Varma on 12-22-2022 Erythrocyte distribution width (RBC) [Ratio] 16.0 % High 12.0-14.8 [facility] Comment on above: Performed By: #### C MP, CBC ####[address] Erythrocytes [#/volume] in B lood by Automated countOrdered By: Estela Varma on 12-22-2022 RBC (Bld) [#/Vol] 4.17 10*6/uL Normal 3.90-5.60 [facility] Comment on above: Performed By: #### C MP, CBC ####[place] [id number] [place] [id number] [facility] Glucose [Mass/volume] in Ser um or PlasmaOrdered By: Estela Varma on 12-22-2022 Glucose [Mass/Vol] 65 mg/dL Low 70-100 [facility] Comment on above: ADA recommended refe rence rangeRandom Glucose Reference Range is dependent on time and content of last meal. Glucose of more than 200 mg/dL in a nonstressed, ambulatory subject supports the diagnosis of Diabetes Mellitus. Result Comment: [place] Glucose Reference Range is dependent on time and content of last meal. Glucose of more than 200 mg/dL in a nonstressed, ambulatory subject supports the diagnosis of Diabetes Mellitus. ADA recommended reference range Performed By: #### C MP, CBC ####[address] Hematocrit [Volume Fraction] of Blood by Automated countOrdered By: Estela Varma on 12-22-2022 Hematocrit (Bld) [Volume fraction] 39.6 % Normal 38.8-50.0 [facility] Comment on above: Performed By: #### C MP, CBC ####[address] Hemoglobin [Mass/volume] in BloodOrdered By: Estela Varma on 12-22-2022 Hemoglobin (Bld) [Mass/Vol] 13.3 g/dL Normal 13.0-17.0 [facility] Comment on above: Performed By: #### C MP, CBC ####[address] Leukocytes [#/volume] correc chris for nucleated erythrocytes in Blood by Automated counOrdered By: Estela Varma on 12-22-2022 WBC corrected for nucl RBC Auto (Bld) [#/Vol] 6.0 10*3/uL 4.1-10.5 [facility] Leukocytes [#/volume] in Blo od by Automated countOrdered By: Estela Varma on 12-22-2022 WBC (Bld) [#/Vol] 6.0 10*3/uL Normal 4.1-10.5 [facility] Comment on above: Performed By: #### C MP, CBC ####[facility] [id number] [place] [address] Lymphocytes [#/volume] in Bl ood by Automated countOrdered By: Estela Varma on 12-22-2022 Lymphocytes (Bld) [#/Vol] 0.9 10*3/uL Low 1.00-4.8 [facility] Comment on above: Performed By: #### C MP, CBC ####[address] Lymphocytes/100 leukocytes i n Blood by Automated countOrdered By: Estela Varma on 12-22-2022 Lymphocytes/100 WBC (Bld) 15.7 % Normal . [facility] Comment on above: Performed By: #### C MP, CBC ####[address] MCH [Entitic mass] by Automa chris countOrdered By: Estela Varma on 12-22-2022 MCH (RBC) [Entitic mass] 31.9 pg Normal 27.5-35.2 [facility] Comment on above: Performed By: #### C MP, CBC ####[facility] [id number] [place] [address] MCHC Auto (RBC) [Mass/Vol]Or dered By: Estela Varma on 12-22-2022 MCHC (RBC) [Mass/Vol] 33.5 g/dL 32.5-35.6 [facility] MCV [Entitic volume] by Auto mated countOrdered By: Estela Varma on 12-22-2022 MCV (RBC) [Entitic vol] 95.0 fL Normal 83.5-101 [facility] Comment on above: Performed By: #### C MP, CBC ####[address] Neutrophils [#/volume] in Bl ood by Automated countOrdered By: Estela Varma on 12-22-2022 Neutrophils (Bld) [#/Vol] 4.2 10*3/uL Normal 1.8-7.7 [facility] Comment on above: Performed By: #### C MP, CBC ####[facility] [id number] No Panel InformationOrdered By: Estela Varma on 12-22-2022 Estimated GFR (CKD-EPI) > 60.0 mL/Min [facility] Creatinine Clearance (Chem 114.05 [facility] Nucleated erythrocytes [Pres ence] in Blood by Automated countOrdered By: Estela Varma on 12-22-2022 Nucleated RBC Auto Ql (Bld) 0.0 /100{WBC} 0-0.5 [facility] PET tumor subq tx strat sb-m ton 12-22-2022 PET tumor subq tx strat sb-mt [facility] [address] [place] [address] [place] [address] Nuclear Medicine Report Signed Patient: Kirill Echols MR#: [id number] : 1965 Acct:[id number] Age/Sex: 57 / M ADM Date: 12/22/22 Loc: Room: Type: [facility] Attending Dr: Estela Varma II DO Copies to: Victorino Ellison Jr, DO Estela Varma II, DO Ordering Provider: Estela Varma II, [...] MALIGNANCY. Impression dictated by: Victorino Ellison Jr., DSesarOSesar12/22/2022 11:42 AM Dictation Location: [place] [address] Transcribed By: [facility] 12/22/22 1142 Dictated By: Victorino Ellison Jr, DO 12/22/22 1135 Signed By: 12/22/22 1142 Normal [facility] Platelet mean volume [Entiti c volume] in Blood by Automated countOrdered By: Estela Varma on 12-22-2022 Platelet mean volume (Bld) [Entitic vol] 6.9 fL Normal 6.6-10.1 [facility] Comment on above: Performed By: #### C MP, CBC ####[place] [address] [place] [address] [facility] Platelets [#/volume] in Bloo d by Automated countOrdered By: Estela Varma on 12-22-2022 Platelets (Bld) [#/Vol] 177 10*3/uL Normal 150-450 [facility] Comment on above: Performed By: #### C MP, CBC ####[address] [address] [place] Potassium [Moles/volume] in Serum or PlasmaOrdered By: Estela Varma on 12-22-2022 Potassium [Moles/Vol] 4.2 mmol/L Normal 3.5-5.1 [facility] Comment on above: Performed By: #### C MP, CBC ####[address] [address] [place] Protein [Mass/volume] in Ser um or PlasmaOrdered By: Estela Varma on 12-22-2022 Protein [Mass/Vol] 6.0 g/dL Low 6.4-8.9 [facility] Comment on above: Performed By: #### C MP, CBC ####[address] [address] [facility] Serum globulin measurement b y calculation (mass/volume)Ordered By: Estela Varma on 12-22-2022 Globulin (S) [Mass/Vol] 2.3 g/dL [facility] Comment on above: Performed By: #### C MP, CBC ####[address] Serum or plasma albumin/glob ulin mass ratioOrdered By: Estela Varma on 12-22-2022 Albumin/Globulin [Mass ratio] 1.6 {ratio} [facility] Comment on above: Performed By: #### C MP, CBC ####[address] Serum or plasma anion gap de terminationOrdered By: Estela Varma on 12-22-2022 Anion gap [Moles/Vol] 8.0 mmol/L Normal 6.0-15.0 [facility] Comment on above: Performed By: #### C MP, CBC ####[address] Sodium [Moles/volume] in Ser um or PlasmaOrdered By: Estela Varma on 12-22-2022 Sodium [Moles/Vol] 127 mmol/L Low 136-145 [facility] Comment on above: Performed By: #### C MP, CBC ####[place] [id number] [facility] Urea nitrogen [Mass/volume] in Serum or PlasmaOrdered By: Estela Varma on 12-22-2022 Urea nitrogen [Mass/Vol] 6 mg/dL Low 7-25 [facility] Comment on above: Performed By: #### C MP, CBC ####[place] [id number] [facility] Alanine aminotransferase [En zymatic activity/volume] in Serum or PlasmaOrdered By: Estela Varma on 10-26-2022 ALT [Catalytic activity/Vol] 12 U/L 7-52 [facility] Albumin [Mass/volume] in Ser um or Plasma by Bromocresol green (BCG) dye binding methoOrdered By: Estela Varma on 10-26-2022 Albumin BCG dye [Mass/Vol] 3.9 g/dL 3.5-5.7 [facility] Alkaline phosphatase [Enzyma tic activity/volume] in Serum or PlasmaOrdered By: Estela Varma on 10-26-2022 ALP [Catalytic activity/Vol] 140 U/L 34-104 [facility] Aspartate aminotransferase [ Enzymatic activity/volume] in Serum or PlasmaOrdered By: Estela Varma on 10-26-2022 AST [Catalytic activity/Vol] 16 U/L 13-39 [facility] Basophils Auto (Bld) [#/Vol] Ordered By: Estela Varma on 10-26-2022 Basophils (Bld) [#/Vol] 0.0 10*3/uL 0.0-0.2 [facility] Basophils/100 WBC Auto (Bld) Ordered By: Estela Varma on 10-26-2022 Basophils/100 WBC (Bld) 0.8 % . [facility] Bilirubin.total [Mass/volume ] in Serum or PlasmaOrdered By: Estela Varma on 10-26-2022 Bilirubin [Mass/Vol] 0.6 mg/dL 0.3-1.0 [facility] Calcium [Mass/volume] in Ser um or PlasmaOrdered By: Estela Varma on 10-26-2022 Calcium [Mass/Vol] 8.3 mg/dL 8.6-10.3 [facility] Carbon dioxide, total [Moles /volume] in Serum or PlasmaOrdered By: Estela Varma on 10-26-2022 CO2 [Moles/Vol] 23.5 mmol/L 21.0-31.0 [facility] Chloride [Moles/volume] in S coral or PlasmaOrdered By: Estela Varma on 10-26-2022 Chloride [Moles/Vol] 98 mmol/L 98-107 [facility] Creatinine [Mass/volume] in Serum or PlasmaOrdered By: Estela Varma on 10-26-2022 Creatinine [Mass/Vol] 0.67 mg/dL 0.70-1.30 [facility] Eosinophils Auto (Bld) [#/Vo l]Ordered By: Estela Varma on 10-26-2022 Eosinophils (Bld) [#/Vol] 0.1 10*3/uL 0.0-0.45 [facility] Eosinophils/100 WBC Auto (Bl d)Ordered By: Estela Varma on 10-26-2022 Eosinophils/100 WBC (Bld) 2.6 % . [facility] Erythrocyte distribution wid th Auto (RBC) [Ratio]Ordered By: Estela Varma on 10-26-2022 Erythrocyte distribution width (RBC) [Ratio] 15.0 % 12.0-14.8 [facility] Erythrocyte sedimentation ra te by Photometric methodOrdered By: Estela Varma on 10-26-2022 ESR Photometric method (Bld) [Velocity] 16 mm/hr 0-19 [facility] Ferritin [Mass/volume] in Se rum or PlasmaOrdered By: Estela Varma on 10-26-2022 Ferritin [Mass/Vol] 225.5 ng/mL 23.9-336.2 [facility] Folate [Mass/volume] in Seru m or PlasmaOrdered By: Estela Varma on 10-26-2022 Folate [Mass/Vol] 4.9 ng/mL >5.9 [facility] Comment on above: Folate reference ran ge: >5.9 ng/mlThe WHO technical consultation on folate and vitamin [id number] has determined that folate concentrations lessthan 4 ng/ml are considered deficient. Globulin Calc (S) [Mass/Vol] Ordered By: Estela Varma on 10-26-2022 Globulin (S) [Mass/Vol] 2.8 g/dL [facility] Glucose [Mass/volume] in Ser um or PlasmaOrdered By: Estela Varma on 10-26-2022 Glucose [Mass/Vol] 66 mg/dL 70-100 [facility] Comment on above: ADA recommended refe rence rangeRandom Glucose Reference Range is dependent on time and content of last meal. Glucose of more than 200 mg/dL in a nonstressed, ambulatory subject supports the diagnosis of Diabetes Mellitus. Hematocrit Auto (Bld) [Volum e fraction]Ordered By: Estela Varma on 10-26-2022 Hematocrit (Bld) [Volume fraction] 39.7 % 38.8-50.0 [facility] Hemoglobin [Mass/volume] in BloodOrdered By: Estela Varma on 10-26-2022 Hemoglobin (Bld) [Mass/Vol] 13.6 g/dL 13.0-17.0 [facility] Iron [Mass/volume] in Serum or PlasmaOrdered By: Estela Varma on 10-26-2022 Iron [Mass/Vol] 103 ug/dL 50-212 [facility] Iron binding capacity [Mass/ volume] in Serum or PlasmaOrdered By: Estela Varma on 10-26-2022 Iron binding capacity [Mass/Vol] 269 ug/dL 255-450 [facility] Iron saturation [Mass Fracti on] in Serum or PlasmaOrdered By: Estela Varma on 10-26-2022 Iron saturation [Mass fraction] 38.3 % 20-50 [facility] Leukocytes [#/volume] correc chris for nucleated erythrocytes in Blood by Automated counOrdered By: Estela Varma on 10-26-2022 WBC corrected for nucl RBC Auto (Bld) [#/Vol] 5.8 10*3/uL 4.1-10.5 [facility] Lymphocytes Auto (Bld) [#/Vo l]Ordered By: Estela Varma on 10-26-2022 Lymphocytes (Bld) [#/Vol] 0.9 10*3/uL 1.00-4.8 [facility] Lymphocytes/100 WBC Auto (Bl d)Ordered By: Estela Varma on 10-26-2022 Lymphocytes/100 WBC (Bld) 15.0 % . [facility] MCH Auto (RBC) [Entitic mass ]Ordered By: Estela Varma on 10-26-2022 MCH (RBC) [Entitic mass] 32.6 pg 27.5-35.2 [facility] MCHC Auto (RBC) [Mass/Vol]Or dered By: Estela Varma on 10-26-2022 MCHC (RBC) [Mass/Vol] 34.2 g/dL 32.5-35.6 [facility] MCV Auto (RBC) [Entitic vol] Ordered By: Estela Varma on 10-26-2022 MCV (RBC) [Entitic vol] 95.2 fL 83.5-101 [facility] Monocytes Auto (Bld) [#/Vol] Ordered By: Estela Varma on 10-26-2022 Monocytes (Bld) [#/Vol] 0.7 10*3/uL 0.0-0.8 [facility] Monocytes/100 WBC Auto (Bld) Ordered By: Estela Varma on 10-26-2022 Monocytes/100 WBC (Bld) 12.1 % . [facility] Neutrophils Auto (Bld) [#/Vo l]Ordered By: Estela Varma on 10-26-2022 Neutrophils (Bld) [#/Vol] 4.1 10*3/uL 1.8-7.7 [facility] Neutrophils/100 WBC Auto (Bl d)Ordered By: Estela Varma on 10-26-2022 Neutrophils/100 WBC (Bld) 69.5 % . [facility] No Panel InformationOrdered By: Estela Varma on 10-26-2022 Estimated GFR (CKD-EPI) > 60.0 mL/Min [facility] Creatinine Clearance (Chem 121.12 [facility] Nucleated erythrocytes [Pres ence] in Blood by Automated countOrdered By: Estela Varma on 10-26-2022 Nucleated RBC Auto Ql (Bld) 0.2 /100{WBC} 0-0.5 [facility] Platelet mean volume Auto (B ld) [Entitic vol]Ordered By: Estela Varma on 10-26-2022 Platelet mean volume (Bld) [Entitic vol] 6.7 fL 6.6-10.1 [facility] Platelets Auto (Bld) [#/Vol] Ordered By: Estela Varma on 10-26-2022 Platelets (Bld) [#/Vol] 227 10*3/uL 150-450 [facility] Potassium [Moles/volume] in Serum or PlasmaOrdered By: Estela Varma on 10-26-2022 Potassium [Moles/Vol] 4.1 mmol/L 3.5-5.1 [facility] Protein [Mass/volume] in Ser um or PlasmaOrdered By: Estela Varma on 10-26-2022 Protein [Mass/Vol] 6.7 g/dL 6.4-8.9 [facility] RBC Auto (Bld) [#/Vol]Ordere d By: Estela Varma on 10-26-2022 RBC (Bld) [#/Vol] 4.17 10*6/uL 3.90-5.60 [facility] Serum or plasma albumin/glob ulin mass ratioOrdered By: Estela Varma on 10-26-2022 Albumin/Globulin [Mass ratio] 1.4 {ratio} [facility] Serum or plasma anion gap de terminationOrdered By: Estela Varma on 10-26-2022 Anion gap [Moles/Vol] 11.6 mmol/L 6.0-15.0 [facility] Serum or plasma carcinoembry onic antigen measurement (mass/volume)Ordered By: Estela Varma on 10-26-2022 Carcinoembryonic Ag [Mass/Vol] 8.0 ng/mL 0.0-3.0 [facility] Serum or plasma erythropoiet in (EPO) measurement (units/volume)Ordered By: Estela Varma on 10-26-2022 Erythropoietin (EPO) Qn 15.7 mIU/mL 2.6-18.5 [facility] Comment on above: [employer] Uni[employer] el DxI 800 Immunoassay SystemValues obtained with different assay methods or kits cannotbe used interchangeably. Results cannot be interpreted asabsolute evidence of the presence or absence of malignantdisease.Performed at: [facility] [id number] Director: Fernando Brand PhD, Phone: [phone] Sodium [Moles/volume] in Ser um or PlasmaOrdered By: Estela Varma on 10-26-2022 Sodium [Moles/Vol] 129 mmol/L 136-145 [facility] Transferrin [Mass/volume] in Serum or PlasmaOrdered By: Estela Varma on 10-26-2022 Transferrin [Mass/Vol] 192 mg/dL 203-362 [facility] Urea nitrogen [Mass/volume] in Serum or PlasmaOrdered By: Estela Varma on 10-26-2022 Urea nitrogen [Mass/Vol] 8 mg/dL 7-25 [facility] Vitamin B12 ser/plasOrdered By: Estela Varma on 10-26-2022 Cobalamin (Vitamin B12) [Mass/Vol] 252 pg/mL 180-914 [facility] WBC Auto (Bld) [#/Vol]Ordere d By: Estela Varma on 10-26-2022 WBC (Bld) [#/Vol] 5.8 10*3/uL 4.1-10.5 [facility] CYTOLOGYon 10-03-2022 SENT TO REF LAB 10/04/2022 Normal [facility] Comment on above: Performed By: #### C YTO #### [facility] [address] [place] [address] [address] Sushant Pradhan CULTURE STERILE BODY FLUIDon 09-11-2022 CULTURE STERILE BODY FLUID Culture Observations: NO GROWTH AT 72 HRS [facility] Comment on above: Performed By: #### C MREP #### [facility] [address] [place] [address] [address] Sushant Pradhan CULTURE STERILE BODY FLUIDon 09-08-2022 CULTURE STERILE BODY FLUID Culture Observations: NO GROWTH AT 72 HOURS. [facility] Comment on above: Performed By: #### C MREP #### [facility] [address] [place] [address] [address] Sushant Pradhan CULTURE STERILE BODY FLUIDon 09-04-2022 CULTURE STERILE BODY FLUID Culture Observations: NO GROWTH AT 72 HOURS. [facility] Comment on above: Performed By: #### C MREP #### [facility] [address] [place] [address] [address] Sushant Pradhan XR RIBS LT PA [...] JESSE RAMOS Date: 2022-09-01 11:46 Normal [facility] CBC AUTO DIFFon 08-27-2022 BASO # 0.0 103/ul Normal 0.0-0.1 [facility] Comment on above: Performed By: #### C BC #### [facility] [address] [place] [address] [address] Sushant Pradhan Basophils/100 WBC (Bld) 0.3 % Normal 0.2-2.0 [facility] Comment on above: Performed By: #### C BC #### [facility] [address] [place] [address] [address] Sushant Pradhan EO # 0.2 103/ul Normal 0.0-0.7 [facility] Comment on above: Performed By: #### C BC #### [facility] [address] [place] [address] [address] Sushant Pradhan Eosinophils/100 WBC (Bld) 3.0 % Normal 0.9-7.0 [facility] Comment on above: Performed By: #### C BC #### [facility] [address] [place] [address] [address] Sushant Pradhan Erythrocyte distribution width (RBC) [Ratio] 16.5 % Critically high 11.0-15.0 [facility] Comment on above: Performed By: #### C BC #### [facility] [address] [place] [address] [address] Sushant Pradhan Hematocrit (Bld) [Volume fraction] 38.4 % Critically low 42.0-54.0 [facility] Comment on above: Performed By: #### C BC #### [facility] [address] [place] [address] [address] Sushant Pradhan Hemoglobin (Bld) [Mass/Vol] 13.9 g/dL Critically low 14.0-18.0 [facility] Comment on above: Performed By: #### C BC #### [facility] [address] [place] [address] [address] Sushant Pradhan IG # 0.01 10e3/ul Normal 0.00-0.03 [facility] Comment on above: Performed By: #### C BC #### [facility] [address] [place] [address] Dr. Sushant Pradhan IG % 0.2 % Normal 0.0-0.5 [facility] Comment on above: Performed By: #### C BC #### [facility] [address] [place] [address] Dr. Sushant Pradhan LYMPH # 1.0 103/ul Critically low 1.2-3.8 [facility] Comment on above: Performed By: #### C BC #### [facility] [address] [place] [address] Dr. Sushant Pradhan Lymphocytes/100 WBC (Bld) 15.8 % Critically low 20.5-60.0 [facility] Comment on above: Performed By: #### C BC #### [facility] [address] [place] [address] Dr. Sushant Pradhan MANUAL DIFF REQ NO Normal [facility] Comment on above: Performed By: #### C BC #### [facility] [address] [place] [address] Dr. Sushant Pradhan MCH (RBC) [Entitic mass] 32.8 pg Normal 25.9-34.0 [facility] Comment on above: Performed By: #### C BC #### [facility] [address] [place] [address] Dr. Sushant Pradhan MCHC (RBC) [Mass/Vol] 36.2 g/dL Critically high 29.9-35.2 [facility] Comment on above: Performed By: #### C BC #### [facility] [address] [place] [address] [address] Sushant Pradhan MCV (RBC) [Entitic vol] 90.6 fL Normal 80.0-94.0 [facility] Comment on above: Performed By: #### C BC #### [facility] [address] [place] [address] [address] Sushant Pradhan MONO # 0.8 103/ul Normal 0.3-0.8 [facility] Comment on above: Performed By: #### C BC #### [facility] [address] [place] [address] [address] Sushant Pradhan Monocytes/100 WBC (Bld) 12.6 % Critically high 1.7-12.0 [facility] Comment on above: Performed By: #### C BC #### [facility] [address] [place] [address] [address] Sushant Pradhan NEUT # 4.3 103/ul Normal 1.4-6.5 [facility] Comment on above: Performed By: #### C BC #### [facility] [address] [place] [address] [address] Sushant Pradhan Neutrophils/100 WBC (Bld) 68.1 % Normal 43.0-75.0 [facility] Comment on above: Performed By: #### C BC #### [facility] [address] [place] [address] [address] Sushant Pradhan Platelet mean volume (Bld) [Entitic vol] 9.0 fL Critically low 9.5-13.5 [facility] Comment on above: Performed By: #### C BC #### [facility] [address] [place] [address] [address] Sushant Pradhan PLT 192 103/ul Normal 150-450 [facility] Comment on above: Performed By: #### C BC #### [facility] [address] [place], [place] [address] Dr. Sushant Pradhan RBC 4.24 106/ul Critically low 4.70-6.10 [facility] Comment on above: Performed By: #### C BC #### [facility] [address] [place], [place] [address] Dr. Sushant Pradhan WBC 6.3 103/ul Normal 4.0-11.0 [facility] Comment on above: Performed By: #### C BC #### [facility] [address] [place], [place] [address] CHEST W CONon [...] by: MARCE SHAY Date: 2022-08-27 12:02 Normal [facility] LACTATE/LACTIC ACIDon 2022 Lactate [Moles/Vol] 1.8 mmol/L Normal 0.4-2.0 [facility] Comment on above: Performed By: #### C MREP #### [facility] [address] [place] [address] Dr. Sushant Pradhan PROF 14(COMP METB)on 023 Albumin [Mass/Vol] 3.2 g/dL Critically low 3.4-5.0 [facility] Comment on above: Performed By: #### C BC #### [facility] [address] [place] [address] Dr. Sushant Pradhan Albumin/Globulin [Mass ratio] 0.7 {ratio} Normal [facility] Comment on above: Performed By: #### C BC #### [facility] [address] [place] [address] Dr. Sushant Pradhan ALP [Catalytic activity/Vol] 207 U/L Critically high 46-116 [facility] Comment on above: Performed By: #### C BC #### [facility] [address] [place] [address] Dr. Sushant Pradhan ALT [Catalytic activity/Vol] 22 U/L Normal 16-63 [facility] Comment on above: Performed By: #### C BC #### [facility] [address] [place] [address] Dr. Sushant Pradhan Anion gap [Moles/Vol] 11.9 mmol/L Normal [facility] Comment on above: Performed By: #### C BC #### [facility] [address] [address] [address] Sushant Pradhan AST [Catalytic activity/Vol] 23 U/L Normal 15-37 [facility] Comment on above: Performed By: #### C BC #### [facility] [address] [address] [address] Sushant Pradhan Bilirubin [Mass/Vol] 0.4 mg/dL Normal 0.2-1.0 [facility] Comment on above: Performed By: #### C BC #### [facility] [address] [address] [address] Sushant Pradhan Calcium [Mass/Vol] 9.2 mg/dL Normal 8.5-10.1 [facility] Comment on above: Performed By: #### C BC #### [facility] [address] [address] [address] Sushant Pradhan Chloride [Moles/Vol] 97 mmol/L Critically low 98-107 [facility] Comment on above: Performed By: #### C BC #### [facility] [address] [address] [address] Sushant Pradhan CO2 [Moles/Vol] 28.1 mmol/L Normal 21.0-32.0 [facility] Comment on above: Performed By: #### C BC #### [facility] [address] [address] [address] Sushant Pradhan Creatinine [Mass/Vol] 0.86 mg/dL Normal 0.70-1.30 [facility] Comment on above: Performed By: #### C BC #### [facility] [address] [address] [address] Sushant Pradhan EGFR-AF CHILEAN >60 Normal >=60 [facility] Comment on above: Performed By: #### C BC #### [facility] [id number] Sushant Pradhan EGFR-NON AF CHILEAN >60 Normal >=60 [facility] Comment on above: Performed By: #### C BC #### [facility] [address] [address] [address] Sushant Pradhan Globulin (S) [Mass/Vol] 4.8 g/dL Normal [facility] Comment on above: Performed By: #### C BC #### [facility] [address] [address] [address] Sushant Pradhan Glucose [Mass/Vol] 104 mg/dL Normal 74-106 [facility] Comment on above: Performed By: #### C BC #### [facility] [address] [address] [address] Sushant Pradhan Potassium [Moles/Vol] 4.0 mmol/L Normal 3.5-5.1 [facility] Comment on above: Performed By: #### C BC #### [facility] [address] [place] [address] Dr. Sushant Pradhan Protein [Mass/Vol] 8.0 g/dL Normal 6.4-8.2 [facility] Comment on above: Performed By: #### C BC #### [facility] [address] [place] [address] Dr. Sushant Pradhan Sodium [Moles/Vol] 133 mmol/L Critically low 136-145 [facility] Comment on above: Performed By: #### C BC #### [facility] [address] [place] [address] Dr. Sushant Pradhan Urea nitrogen [Mass/Vol] 6.0 mg/dL Critically low 7.0-18.0 [facility] Comment on above: Performed By: #### C BC #### [facility] [address] [place] [address] Dr. Sushant Pradhan Urea nitrogen/Creatinine [Mass ratio] 7.0 mg/mg Normal [facility] Comment on above: Performed By: #### C BC #### [facility] [address] [place] [address] Dr. Sushant Pradhan TROPONIN, HIGH SENSITIVITYon 08-27-2022 HSTROP 5.6 pg/mL Normal 4.0-76.1 [facility] Comment on above: Result Comment: CUT- OFF POINTS HAVE BEEN ESTABLISHED BASED ON THE FOURTH UNIVERSAL DEFINITIONS OF MYOCARDIAL INFARCTION. THE UPPER REFERENCE LIMIT (URL) OF TROPONIN, DEFINED THE 99TH PERCENTILE OF cTnI DISTRIBUTION IN A REFERENCE POPULATION, HAS BEEN CONFIRMED THE DECISION THRESHOLD FOR TX DIAGNOSIS. Performed By: #### C BC #### [facility] [address] [place] [address] Dr. Sushant Pradhan HSTROP 5.8 pg/mL Normal 4.0-76.1 [facility] Comment on above: Result Comment: CUT- OFF POINTS HAVE BEEN ESTABLISHED BASED ON THE FOURTH UNIVERSAL DEFINITIONS OF MYOCARDIAL INFARCTION. THE UPPER REFERENCE LIMIT (URL) OF TROPONIN, DEFINED THE 99TH PERCENTILE OF cTnI DISTRIBUTION IN A REFERENCE POPULATION, HAS BEEN CONFIRMED THE DECISION THRESHOLD FOR TX DIAGNOSIS. Performed By: #### C BC #### [facility] [address] [place] [address] Dr. Sushant Pradhan CARDIAC SONIA ADMITon 023 CK [Catalytic activity/Vol] 68 U/L Normal 39-308 [facility] Comment on above: Performed By: #### C MREP #### [facility] [address] [place] [address] Dr. Sushant Pradhan CK.MB [Mass/Vol] 1.23 ng/mL Normal <=3.60 [facility] Comment on above: Performed By: #### C MREP #### [facility] [address] [place] [address] Dr. Sushant Pradhan HSTROP 7.1 pg/mL Normal 4.0-76.1 [facility] Comment on above: Result Comment: CUT- OFF POINTS HAVE BEEN ESTABLISHED BASED ON THE [facility] UNIVERSAL DEFINITIONS OF MYOCARDIAL INFARCTION. THE UPPER REFERENCE LIMIT (URL) OF TROPONIN, DEFINED THE 99TH PERCENTILE OF cTnI DISTRIBUTION IN A REFERENCE POPULATION, HAS BEEN CONFIRMED THE DECISION THRESHOLD FOR TX DIAGNOSIS. Performed By: #### C MREP #### [facility] [address] [place] [address] Dr. Sushant Pradhan DILAN 32 ng/mL Normal 16-96 [facility] Comment on above: Performed By: #### C MREP #### [facility] [address] [place] [address] Dr. Sushant Pradhan CBC AUTO DIFFon 06-18-2022 BASO # 0.0 103/ul Normal 0.0-0.1 [facility] Comment on above: Performed By: #### C BC #### [facility] [address] [place] [address] Dr. Sushant Pradhan Basophils/100 WBC (Bld) 0.5 % Normal 0.2-2.0 [facility] Comment on above: Performed By: #### C BC #### [facility] [address] [place] [address] Dr. Sushant Pradhan EO # 0.3 103/ul Normal 0.0-0.7 [facility] Comment on above: Performed By: #### C BC #### [facility] [address] [place] [address] Dr. Sushant Pradhan Eosinophils/100 WBC (Bld) 4.5 % Normal 0.9-7.0 [facility] Comment on above: Performed By: #### C BC #### [facility] [address] [place] [address] Dr. Sushant Pradhan Erythrocyte distribution width (RBC) [Ratio] 15.8 % Critically high 11.0-15.0 [facility] Comment on above: Performed By: #### C BC #### [facility] [address] [place] [address] Dr. Sushant Pradhan Hematocrit (Bld) [Volume fraction] 37.3 % Critically low 42.0-54.0 [facility] Comment on above: Performed By: #### C BC #### [facility] [address] [place] [address] Dr. Sushant Pradhan Hemoglobin (Bld) [Mass/Vol] 13.0 g/dL Critically low 14.0-18.0 [facility] Comment on above: Performed By: #### C BC #### [facility] [address] [place] [address] Dr. Sushant Pradhan IG # 0.02 10e3/ul Normal 0.00-0.03 [facility] Comment on above: Performed By: #### C BC #### [facility] [address] [place] [address] Dr. Sushant Pradhan IG % 0.3 % Normal 0.0-0.5 [facility] Comment on above: Performed By: #### C BC #### [facility] [address] [place] [address] Dr. Sushant Pradhan LYMPH # 0.8 103/ul Critically low 1.2-3.8 [facility] Comment on above: Performed By: #### C BC #### [facility] [address] [place] [address] Dr. Sushant Pradhan Lymphocytes/100 WBC (Bld) 13.9 % Critically low 20.5-60.0 [facility] Comment on above: Performed By: #### C BC #### [facility] [address] [place] [address] Dr. Sushant Pradhan MANUAL DIFF REQ NO Normal [facility] Comment on above: Performed By: #### C BC #### [facility] [address] [place] [address] Dr. Sushant Pradhan MCH (RBC) [Entitic mass] 33.0 pg Normal 25.9-34.0 [facility] Comment on above: Performed By: #### C BC #### [facility] [address] [place] [address] Dr. Sushant Pradhan MCHC (RBC) [Mass/Vol] 34.9 g/dL Normal 29.9-35.2 [facility] Comment on above: Performed By: #### C BC #### [facility] [address] [place] [address] Dr. Sushant Pradhan MCV (RBC) [Entitic vol] 94.7 fL Critically high 80.0-94.0 [facility] Comment on above: Performed By: #### C BC #### [facility] [address] [place] [address] Dr. Sushant Pradhan MONO # 0.7 103/ul Normal 0.3-0.8 [facility] Comment on above: Performed By: #### C BC #### [facility] [address] [place] [address] Dr. Sushant Pradhan Monocytes/100 WBC (Bld) 12.5 % Critically high 1.7-12.0 [facility] Comment on above: Performed By: #### C BC #### [facility] [address] [place] [address] Dr. Sushant Pradhan NEUT # 4.0 103/ul Normal 1.4-6.5 [facility] Comment on above: Performed By: #### C BC #### [facility] [address] [place] [address] Dr. Sushant Pradhan Neutrophils/100 WBC (Bld) 68.3 % Normal 43.0-75.0 [facility] Comment on above: Performed By: #### C BC #### [facility] [address] [place] [address] Dr. Sushant Pradhan Platelet mean volume (Bld) [Entitic vol] 9.1 fL Critically low 9.5-13.5 [facility] Comment on above: Performed By: #### C BC #### [facility] [address] [place] [address] Dr. Sushant Pradhan PLT 175 103/ul Normal 150-450 [facility] Comment on above: Performed By: #### C BC #### [facility] [address] [place] [address] Dr. Sushant Pradhan RBC 3.94 106/ul Critically low 4.70-6.10 [facility] Comment on above: Performed By: #### C BC #### [facility] [address] [place] [address] Dr. Sushant Pradhan WBC 5.8 103/ul Normal 4.0-11.0 [facility] Comment on above: Performed By: #### C BC #### [facility] [address] [place] [address] Dr. Sushant Pradhan PROF 14(COMP METB)on 023 Albumin [Mass/Vol] 2.9 g/dL Critically low 3.4-5.0 [facility] Comment on above: Performed By: #### C MREP #### [facility] [address] [place] [address] Dr. Sushant Pradhan Albumin/Globulin [Mass ratio] 0.8 {ratio} Normal [facility] Comment on above: Performed By: #### C MREP #### [facility] [address] [place] [address] Dr. Sushant Pradhan ALP [Catalytic activity/Vol] 133 U/L Critically high 46-116 [facility] Comment on above: Performed By: #### C MREP #### [facility] [address] [address] [address] Sushant Pradhan ALT [Catalytic activity/Vol] 15 U/L Critically low 16-63 [facility] Comment on above: Performed By: #### C MREP #### [facility] [address] [address] [address] Sushant Pradhan Anion gap [Moles/Vol] 16.5 mmol/L Normal [facility] Comment on above: Performed By: #### C MREP #### [facility] [address] [place] [address] Dr. Sushant Pradhan AST [Catalytic activity/Vol] 15 U/L Normal 15-37 [facility] Comment on above: Performed By: #### C MREP #### [facility] [address] [address] [address] Sushant Pradhan Bilirubin [Mass/Vol] 0.4 mg/dL Normal 0.2-1.0 [facility] Comment on above: Performed By: #### C MREP #### [facility] [address] [address] [address] Sushant Pradhan Calcium [Mass/Vol] 8.6 mg/dL Normal 8.5-10.1 [facility] Comment on above: Performed By: #### C MREP #### [facility] [address] [address] [address] Sushant Pradhan Chloride [Moles/Vol] 97 mmol/L Critically low 98-107 [facility] Comment on above: Performed By: #### C MREP #### [facility] [address] [address] [address] Sushant Pradhan CO2 [Moles/Vol] 22.3 mmol/L Normal 21.0-32.0 [facility] Comment on above: Performed By: #### C MREP #### [facility] [address] [address] [address] Sushant Pradhan Creatinine [Mass/Vol] 0.61 mg/dL Critically low 0.70-1.30 [facility] Comment on above: Performed By: #### C MREP #### [facility] [address] [address] [address] Sushant Pradhan EGFR-AF CHILEAN >60 Normal >=60 [facility] Comment on above: Performed By: #### C MREP #### [facility] [address] [address] [address] Sushant Pradhan EGFR-NON AF CHILEAN >60 Normal >=60 [facility] Comment on above: Performed By: #### C MREP #### [facility] [address] [place] [address] Dr. Sushant Pradhan Globulin (S) [Mass/Vol] 3.8 g/dL Normal [facility] Comment on above: Performed By: #### C MREP #### [facility] [address] [place] [address] Dr. Sushant Pradhan Glucose [Mass/Vol] 79 mg/dL Normal 74-106 [facility] Comment on above: Performed By: #### C MREP #### [facility] [address] [place] [address] Dr. Sushant Pradhan Potassium [Moles/Vol] 3.8 mmol/L Normal 3.5-5.1 [facility] Comment on above: Performed By: #### C MREP #### [facility] [address] [place] [address] Dr. Sushant Pradhan Protein [Mass/Vol] 6.7 g/dL Normal 6.4-8.2 [facility] Comment on above: Performed By: #### C MREP #### [facility] [address] [place] [address] Dr. Sushant Pradhan Sodium [Moles/Vol] 132 mmol/L Critically low 136-145 [facility] Comment on above: Performed By: #### C MREP #### [facility] [address] [place], [place] [address] Dr. Sushant Pradhan Urea nitrogen [Mass/Vol] 5.0 mg/dL Critically low 7.0-18.0 [facility] Comment on above: Performed By: #### C MREP #### [facility] [address] [place], [place] [address] Dr. Sushant Pradhan Urea nitrogen/Creatinine [Mass ratio] 8.2 mg/mg Normal [facility] Comment on above: Performed By: #### C MREP #### [facility] [address] [place], [place] [address] Dr. Sushant Pradhan XR CHEST 1 Von [...] JESSE RAMOS Date: 2022-06-18 10:42 Normal [facility] Basophils Auto (Bld) [#/Vol] Ordered By: Jackie Fraga on 06-17-2022 Basophils (Bld) [#/Vol] 0.0 10*3/uL 0.0-0.2 [facility] Basophils/100 WBC Auto (Bld) Ordered By: Jackie Fraga on 06-17-2022 Basophils/100 WBC (Bld) 0.7 % . [facility] Creatinine and Glomerular fi ltration rate.predicted panel (S/P/Bld)Ordered By: Jackie Fraga on 06-17-2022 Creatinine [Mass/Vol] 0.91 mg/dL 0.64-1.27 [facility] Eosinophils Auto (Bld) [#/Vo l]Ordered By: Jackie Fraga on 06-17-2022 Eosinophils (Bld) [#/Vol] 0.2 10*3/uL 0.0-0.45 [facility] Eosinophils/100 WBC Auto (Bl d)Ordered By: Jackie Fraga on 06-17-2022 Eosinophils/100 WBC (Bld) 3.5 % . [facility] Erythrocyte distribution wid th Auto (RBC) [Ratio]Ordered By: Jackie Fraga on 06-17-2022 Erythrocyte distribution width (RBC) [Ratio] 15.8 % 12.0-14.8 [facility] Estimated glomerular filtrat ion rate (GFR) non- AmericanOrdered By: Jackie Fraga on 06-17-2022 GFR/1.73 sq M.predicted among non-blacks MDRD (S/P/Bld) [Vol rate/Area] > 60 mL/Min [facility] Hematocrit Auto (Bld) [Volum e fraction]Ordered By: Jackie Fraga on 06-17-2022 Hematocrit (Bld) [Volume fraction] 41.9 % 38.8-50.0 [facility] Hemoglobin [Mass/volume] in BloodOrdered By: Jackie Fraga on 06-17-2022 Hemoglobin (Bld) [Mass/Vol] 13.8 g/dL 13.0-17.0 [facility] Leukocytes [#/volume] correc chris for nucleated erythrocytes in Blood by Automated counOrdered By: Jackie Fraga on 06-17-2022 WBC corrected for nucl RBC Auto (Bld) [#/Vol] 6.1 10*3/uL 4.1-10.5 [facility] Lymphocytes Auto (Bld) [#/Vo l]Ordered By: Jackie Fraga on 06-17-2022 Lymphocytes (Bld) [#/Vol] 1.0 10*3/uL 1.00-4.8 [facility] Lymphocytes/100 WBC Auto (Bl d)Ordered By: Jackie Fraga on 06-17-2022 Lymphocytes/100 WBC (Bld) 16.6 % . [facility] MCH Auto (RBC) [Entitic mass ]Ordered By: Jackie Fraga on 06-17-2022 MCH (RBC) [Entitic mass] 32.9 pg 27.5-35.2 [facility] MCHC Auto (RBC) [Mass/Vol]Or dered By: Jackie Fraga on 06-17-2022 MCHC (RBC) [Mass/Vol] 33.1 g/dL 32.5-35.6 [facility] MCV Auto (RBC) [Entitic vol] Ordered By: Jackie Fraga on 06-17-2022 MCV (RBC) [Entitic vol] 99.4 fL 83.5-101 [facility] Monocytes Auto (Bld) [#/Vol] Ordered By: Jackie Fraga on 06-17-2022 Monocytes (Bld) [#/Vol] 0.8 10*3/uL 0.0-0.8 [facility] Monocytes/100 WBC Auto (Bld) Ordered By: Jackie Fraga on 06-17-2022 Monocytes/100 WBC (Bld) 13.3 % . [facility] Neutrophils Auto (Bld) [#/Vo l]Ordered By: Jackie Fraga on 06-17-2022 Neutrophils (Bld) [#/Vol] 4.0 10*3/uL 1.8-7.7 [facility] Neutrophils/100 WBC Auto (Bl d)Ordered By: Jackie Fraga on 06-17-2022 Neutrophils/100 WBC (Bld) 65.9 % . [facility] No Panel InformationOrdered By: Jackie Fraga on 06-17-2022 Estimated GFR () > 60 mL/Min [facility] Comment on above: GFR estimated refere nce range: According to KDOQI guidelines, <60 ml/min/1.73m2 is sufficient to diagnose a patient with chronic kidney disease. Pharmacy Creatinine Clearance (Chem 86.01 [facility] Nucleated erythrocytes [Pres ence] in Blood by Automated countOrdered By: Jackie Fraga on 06-17-2022 Nucleated RBC Auto Ql (Bld) 0.2 /100{WBC} 0-0.5 [facility] Platelet mean volume Auto (B ld) [Entitic vol]Ordered By: Jackie Fraga on 06-17-2022 Platelet mean volume (Bld) [Entitic vol] 7.7 fL 6.6-10.1 [facility] Platelets Auto (Bld) [#/Vol] Ordered By: Jackie Fraga on 06-17-2022 Platelets (Bld) [#/Vol] 185 10*3/uL 150-450 [facility] RBC Auto (Bld) [#/Vol]Ordere d By: Jackie Fraga on 06-17-2022 RBC (Bld) [#/Vol] 4.21 10*6/uL 3.90-5.60 [facility] Serum or plasma anion gap de terminationOrdered By: Jackie Fraga on 06-17-2022 Anion gap [Moles/Vol] 10.6 mmol/L 6.0-15.0 [facility] Serum or plasma calcium ledy urement (mass/volume)Ordered By: Jackie Fraga on 06-17-2022 Calcium [Mass/Vol] 8.6 mg/dL 8.2-10.2 [facility] Serum or plasma chloride carlyn surement (moles/volume)Ordered By: Jackie Fraga on 06-17-2022 Chloride [Moles/Vol] 99 mmol/L 95-114 [facility] Serum or plasma glucose ledy urement (mass/volume)Ordered By: Jackie Fraga on 06-17-2022 Glucose [Mass/Vol] 94 mg/dL 70-100 [facility] Comment on above: ADA recommended refe rence rangeRandom Glucose Reference Range is dependent on time and content of last meal. Glucose of more than 200 mg/dL in a nonstressed, ambulatory subject supports the diagnosis of Diabetes Mellitus. Serum or plasma potassium me asurement (moles/volume)Ordered By: Jackie Fraga on 06-17-2022 Potassium [Moles/Vol] 4.1 mmol/L 3.5-5.1 [facility] Serum or plasma sodium measu rement (moles/volume)Ordered By: Jackie Fraga on 06-17-2022 Sodium [Moles/Vol] 127 mmol/L 136-146 [facility] Serum or plasma total carbon dioxide measurement (moles/volume)Ordered By: Jackie Fraga on 06-17-2022 CO2 [Moles/Vol] 21.5 mmol/L 22.0-30.0 [facility] Serum or plasma urea nitroge n measurement (mass/volume)Ordered By: Jackie Fraga on 06-17-2022 Urea nitrogen [Mass/Vol] 10 mg/dL 9-23 [facility] TSH DL <= 0.005 mIU/L QnOrde red By: Jackie Fraga on 06-17-2022 TSH Qn 4.63 m[IU]/L 0.45-5.33 [facility] WBC Auto (Bld) [#/Vol]Ordere d By: Jackie Fraga on 06-17-2022 WBC (Bld) [#/Vol] 6.1 10*3/uL 4.1-10.5 [facility] Amphetamine Screen Ql (U)Ord ered By: Edward Hinds on 06-16-2022 Amphetamines Ql (U) Negative Negative [facility] Barbiturates [Presence] in U rineOrdered By: Edward Hinds on 06-16-2022 Barbiturates Ql (U) Negative Negative [facility] Benzodiazepines [Presence] i n UrineOrdered By: Edward Hinds on 06-16-2022 Benzodiazepines Ql (U) Negative Negative [facility] Cannabinoids [Presence] in U rine by Screen methodOrdered By: Edward Hinds on 06-16-2022 Cannabinoids Screen Ql (U) Positive Negative [facility] Comment on above: These are unconfirme d results and should not be used for legal purposes. Drug Cut-Off Concentration: AMPH 1000 ng/mL ZUNILDA 200 ng/mL SHIVANI 200 ng/mL COCM 300 ng/mL OP 300 ng/mL PCP 25 ng/mL THC 20 ng/mL Laboratory - Drug toxicology Ordered By: Edward Hinds on 06-16-2022 Opiates Ql (U) Negative Negative [facility] Phencyclidine Screen Ql (U)O rdered By: Edward Hinds on 06-16-2022 Phencyclidine Ql (U) Negative Negative [facility] Urine cocaine detectionOrder ed By: Edward Hinds on 06-16-2022 Cocaine Ql (U) Negative Negative [facility] Activated partial thrombopla stin time (aPTT) in platelet poor plasma by coagulation aOrdered By: Varghese Duval on 06-15-2022 aPTT Coag (PPP) [Time] 35.2 s 25.1-36.5 [facility] Basophils Auto (Bld) [#/Vol] Ordered By: Varghese Duval on 06-15-2022 Basophils (Bld) [#/Vol] 0.1 10*3/uL 0.0-0.2 [facility] Basophils/100 WBC Auto (Bld) Ordered By: Varghese Duval on 06-15-2022 Basophils/100 WBC (Bld) 1.0 % . [facility] Bilirubin Test strip Ql (U)O rdered By: Varghese Duval on 06-15-2022 Bilirubin Ql (U) Negative Negative [facility] Color Auto (U)Ordered By: Tanya Duval on 06-15-2022 Color (U) Yellow Yellow [facility] Creatinine and Glomerular fi ltration rate.predicted panel (S/P/Bld)Ordered By: Varghese Duval on 06-15-2022 Creatinine [Mass/Vol] 0.76 mg/dL 0.64-1.27 [facility] Eosinophils Auto (Bld) [#/Vo l]Ordered By: Varghese Duval on 06-15-2022 Eosinophils (Bld) [#/Vol] 0.3 10*3/uL 0.0-0.45 [facility] Eosinophils/100 WBC Auto (Bl d)Ordered By: Varghese Duval on 06-15-2022 Eosinophils/100 WBC (Bld) 4.9 % . [facility] Erythrocyte distribution wid th Auto (RBC) [Ratio]Ordered By: Varghese Duval on 06-15-2022 Erythrocyte distribution width (RBC) [Ratio] 15.9 % 12.0-14.8 [facility] Estimated glomerular filtrat ion rate (GFR) non- AmericanOrdered By: Varghese Duval on 06-15-2022 GFR/1.73 sq M.predicted among non-blacks MDRD (S/P/Bld) [Vol rate/Area] > 60 mL/Min [facility] Hematocrit Auto (Bld) [Volum e fraction]Ordered By: Varghese Duval on 06-15-2022 Hematocrit (Bld) [Volume fraction] 42.5 % 38.8-50.0 [facility] Hemoglobin [Mass/volume] in BloodOrdered By: Varghese Duval on 06-15-2022 Hemoglobin (Bld) [Mass/Vol] 14.3 g/dL 13.0-17.0 [facility] Ketones Auto test strip (U) [Mass/Vol]Ordered By: Varghese Duval on 06-15-2022 Ketones (U) [Mass/Vol] Negative Negative [facility] Laboratory - CoagulationOrde red By: Varghese Duval on 06-15-2022 PT Coag (PPP) [Time] 10.7 s 9.0-12.9 [facility] Leukocytes [#/volume] correc chris for nucleated erythrocytes in Blood by Automated counOrdered By: Varghese Duval on 06-15-2022 WBC corrected for nucl RBC Auto (Bld) [#/Vol] 5.4 10*3/uL 4.1-10.5 [facility] [facility] Lymphocytes Auto (Bld) [#/Vo l]Ordered By: Varghese Duval on 06-15-2022 Lymphocytes (Bld) [#/Vol] 1.0 10*3/uL 1.00-4.8 [facility] Lymphocytes/100 WBC Auto (Bl d)Ordered By: Varghese Duval on 06-15-2022 Lymphocytes/100 WBC (Bld) 19.3 % . [facility] MCH Auto (RBC) [Entitic mass ]Ordered By: Varghese Duval on 06-15-2022 MCH (RBC) [Entitic mass] 33.2 pg 27.5-35.2 [facility] MCHC Auto (RBC) [Mass/Vol]Or dered By: Varghese Duval on 06-15-2022 MCHC (RBC) [Mass/Vol] 33.5 g/dL 32.5-35.6 [facility] MCV Auto (RBC) [Entitic vol] Ordered By: Varghese Duval on 06-15-2022 MCV (RBC) [Entitic vol] 98.9 fL 83.5-101 [facility] Monocytes Auto (Bld) [#/Vol] Ordered By: Varghese Duval on 06-15-2022 Monocytes (Bld) [#/Vol] 0.5 10*3/uL 0.0-0.8 [facility] Monocytes/100 WBC Auto (Bld) Ordered By: Varghese Duval on 06-15-2022 Monocytes/100 WBC (Bld) 8.8 % . [facility] Neutrophils Auto (Bld) [#/Vo l]Ordered By: Varghese Duval on 06-15-2022 Neutrophils (Bld) [#/Vol] 3.6 10*3/uL 1.8-7.7 [facility] Neutrophils/100 WBC Auto (Bl d)Ordered By: Varghese Duval on 06-15-2022 Neutrophils/100 WBC (Bld) 66.0 % . [facility] Nitrite Test strip Ql (U)Ord ered By: Varghese Duval on 06-15-2022 Nitrite Ql (U) Negative Negative [facility] No Panel InformationOrdered By: Varghese Duval on 06-15-2022 Estimated GFR () > 60 mL/Min [facility] Comment on above: GFR estimated refere nce range: According to KDOQI guidelines, <60 ml/min/1.73m2 is sufficient to diagnose a patient with chronic kidney disease. Pharmacy Creatinine Clearance (Chem N/A [facility] Nucleated erythrocytes [Pres ence] in Blood by Automated countOrdered By: Varghese Duval on 06-15-2022 Nucleated RBC Auto Ql (Bld) 0.2 /100{WBC} 0-0.5 [facility] Platelet mean volume Auto (B ld) [Entitic vol]Ordered By: Varghese Duval on 06-15-2022 Platelet mean volume (Bld) [Entitic vol] 7.4 fL 6.6-10.1 [facility] Platelet poor plasma interna tional normalized ratio (INR) by coagulation assay (relatOrdered By: Varghese Duval on 06-15-2022 INR Coag (PPP) [Relative time] 0.9 {INR} [facility] Comment on above: INR Therapeutic Rang e [...] 06-15-2022 Platelets (Bld) [#/Vol] 212 10*3/uL 150-450 [facility] Protein Auto test strip (U) [Mass/Vol]Ordered By: Varghese Duval on 06-15-2022 Protein (U) [Mass/Vol] Negative Negative [facility] RBC Auto (Bld) [#/Vol]Ordere d By: Varghese Duval on 06-15-2022 RBC (Bld) [#/Vol] 4.30 10*6/uL 3.90-5.60 [facility] Serum or plasma anion gap de terminationOrdered By: Varghese Duval on 06-15-2022 Anion gap [Moles/Vol] 14.4 mmol/L 6.0-15.0 [facility] Serum or plasma calcium ledy urement (mass/volume)Ordered By: Varghese Duval on 06-15-2022 Calcium [Mass/Vol] 8.5 mg/dL 8.2-10.2 [facility] Serum or plasma chloride carlyn surement (moles/volume)Ordered By: Varghese Duval on 06-15-2022 Chloride [Moles/Vol] 98 mmol/L 95-114 [facility] Serum or plasma glucose ledy urement (mass/volume)Ordered By: Varghese Duval on 06-15-2022 Glucose [Mass/Vol] 74 mg/dL 70-100 [facility] Comment on above: ADA recommended refe rence rangeRandom Glucose Reference Range is dependent on time and content of last meal. Glucose of more than 200 mg/dL in a nonstressed, ambulatory subject supports the diagnosis of Diabetes Mellitus. Serum or plasma potassium me asurement (moles/volume)Ordered By: Varghese Duval on 06-15-2022 Potassium [Moles/Vol] 4.2 mmol/L 3.5-5.1 [facility] Serum or plasma sodium measu rement (moles/volume)Ordered By: Varghese Duval on 06-15-2022 Sodium [Moles/Vol] 129 mmol/L 136-146 [facility] Serum or plasma total carbon dioxide measurement (moles/volume)Ordered By: Varghese Duval on 06-15-2022 CO2 [Moles/Vol] 20.8 mmol/L 22.0-30.0 [facility] Serum or plasma urea nitroge n measurement (mass/volume)Ordered By: Varghese Duval on 06-15-2022 Urea nitrogen [Mass/Vol] 4 mg/dL 9-23 [facility] Specific gravity Auto test s trip (U) [Rel density]Ordered By: Varghese Duval on 06-15-2022 Specific gravity (U) [Rel density] 1.008 1.001-1.030 [facility] Urine clarity by refractomet ry automatedOrdered By: Varghese Duval on 06-15-2022 Clarity Refractometry automated (U) Clear Clear [facility] Urine glucose measurement by automated test strip (mass/volume)Ordered By: Varghese Duval on 06-15-2022 Glucose Auto test strip (U) [Mass/Vol] Normal mg/dL Normal [facility] Urine hemoglobin detection b y automated test stripOrdered By: Varghese Duval on 06-15-2022 Hemoglobin Auto test strip Ql (U) Negative Negative [facility] Urine leukocyte esterase det ection by automated test stripOrdered By: Varghese Duval on 06-15-2022 Leukocyte esterase Auto test strip Ql (U) Negative Negative [facility] Urobilinogen Auto test strip (U) [Mass/Vol]Ordered By: Varghese Duval on 06-15-2022 Urobilinogen (U) [Mass/Vol] Normal mg/dL Normal [facility] WBC Auto (Bld) [#/Vol]Ordere d By: Varghese Duval on 06-15-2022 WBC (Bld) [#/Vol] 5.4 10*3/uL 4.1-10.5 [facility] pH Auto test strip (U)Ordere d By: Varghese Duval on 06-15-2022 pH (U) 5.5 [pH] 5.0-9.[address] [facility] [address] chest w conon 06-01-2022 CT chest w con [facility] [employer] Other CT chest w con [facility] [employer] Other CT chest w con [address] [place] [address] [place] [address] No [facility] [employer] Other CT chest w con CT Scan Report [employer] Other CT chest w con Signed [facility] Other CT chest w con Patient: Gustavo Echols N MR#: [id number] [facility] Other CT chest w con [address] chest w con : 1965 Acct:[id number] [employer] Other CT chest w con Age/Sex: 57 / M ADM Date: 06/01/[address] chest w con Loc: CT Room: Type: [facility] Other CT chest w con Attending Dr: Rachid Chase MD [employer] Other CT chest w con Copies to: Rachid whitlock MD [employer] Other CT chest w con Ordering Provider: Narinder Chase MD [employer] Other CT chest w con Date of Service: 06/01/[address] [address] chest w con CT/CT chest w con: C34.[address] [address] chest w con CT chest withcontrast [employer] Other CT chest w con TECHNIQUE: Axial adore ging with 2-D reconstruction. 83 cc of Isovue-300The CT exam was performed [employer] Other CT chest w con using one or more th e following dose reduction techniques: Automated exposure control, adjustment of [employer] Other CT chest w con the MA and/or Kv according to patient size, or use of the iterative reconstruction technique. [employer] Other CT chest w con History: History of lung cancer. Chest tightness. Shortness of breath. [employer] Other CT chest w con COMPARISON: 04/10/[address] [address] chest w con No thyroid abnormali ty [id number] present on the left. [employer] Other CT chest w con Central airway is patent. [employer] Other CT chest w con No esophageal abnormality identified. [employer] Other CT chest w con Heart is not enlarge d. No pericardial effusion is seen. [employer] Other CT chest w con Nonenlarged mediasti nal lymph nodes identified. No hilar mass or adenopathy is seen. [employer] Other CT chest w con No thoracic aortic aneurysm is seen. [employer] Other CT chest w con No lung nodules identified. [employer] Other CT chest w con No infiltrate or congestion identified. Developing medial right middle lobe atelectasis. Large [employer] Other CT chest w con right pleural effusi on redemonstrated. This is similar to prior examination. No pneumothorax seen. [employer] Other CT chest w con Emphysematous change s redemonstrated. [employer] Other CT chest w con No chest wall abnormality seen. The bony structures are intact. [employer] Other CT chest w con Images of the upper abdomen are noncontributory. [employer] Other CT chest w con C T/CT chest w con [employer] Other CT chest w con IMPRESSION: Developi ng medial right middle lobe atelectasis. Continued large right pleural [employer] Other CT chest w con effusion. Emphysema. [employer] Other CT chest w con Impression dictated by: Franklin Gomes M.D.06/01/2022 3:[address] [facility] [address] chest w con Dictation Location: [facility] [address] chest w con Transcribed By: PWS 06/01/[address] [address] chest w con Dictated By: Franklin Gomes DO 06/01/[address] [address] chest w con Signed By: [facility] Other CT chest w con 06/01/22 1520 [facility] Other Creatinine (Bld) [Mass/Vol]O rdered By: Rachid Chase on 06-01-2022 Creatinine [Mass/Vol] 0.8 mg/dL 0.6-1.3 [facility] Comment on above: ER/ESD physician is notified/shown all ISTAT results.Critical values may be confirmed by laboratory testing ifdeemed necessary by ER attending doctor. No Panel InformationOrdered By: Rachid Chase on 06-01-2022 POC Estimated GFR > 60 [facility] Comment on above: GFR estimated refere nce range: According to KDOQI guidelines, <60 ml/min/1.73m2 is sufficient to diagnose a patient with chronic kidney disease. POC Estimated GFR Non- Amer > 60 [facility] Activated partial thrombopla stin time (aPTT) in platelet poor plasma by coagulation aOrdered By: Estela Varma on 04-18-2022 aPTT Coag (PPP) [Time] 44.4 s 25.1-36.5 [facility] Laboratory - CoagulationOrde red By: Estela Varma on 04-18-2022 PT Coag (PPP) [Time] 11.2 s 9.0-12.9 [facility] Platelet poor plasma interna tional normalized ratio (INR) by coagulation assay (relatOrdered By: Estela Varma on 04-18-2022 INR Coag (PPP) [Relative time] 1.0 {INR} [facility] Comment on above: INR Therapeutic Rang e [...] 04-18-2022 Platelets (Bld) [#/Vol] 158 10*3/uL 150-450 [facility] Bacterial blood cultureOrder ed By: Tez Irene on 04-15-2022 Bacteria identified Cx Nom (Bld) NO GROWTH 5 DAYS [facility] Bacteria identified Anaer cx Nom (Unsp spec)Ordered By: Tez Irene on 04-14-2022 Anaerobic microbial culture No Anaerobes Isolated 3 Days [facility] ABO and Rh group post transf usion reaction Nom (Bld)Ordered By: Tez Irene on 04-12-2022 Microscopic observation Gram stain Nom (Unsp spec) [facility] Aerobic cultureOrdered By: Krystina Irene on 04-11-2022 Bacteria identified Aer cx Nom (Unsp spec) No Growth 2 Days [facility] Anaerobic cultureOrdered By: Tez Irene on 04-11-2022 Bacteria identified Anaer cx Nom (Unsp spec) No Anaerobes Isolated 3 Days [facility] Body fluid differential cell countOrdered By: Tez Irene on 04-11-2022 Differential panel (Body fld) 4 % [facility] Comment on above: The reference interv al and other method performance specifications have not been established for this body fluid. The test result must be integrated into the clinical context for interpretation. Differential panel (Body fld) 0 % [facility] Comment on above: The reference interv al and other method performance specifications have not been established for this body fluid. The test result must be integrated into the clinical context for interpretation. Body fluid protein measureme nt (mass/volume)Ordered By: Tez Irene on 04-11-2022 Protein (Body fld) [Mass/Vol] 3.8 g/dL [facility] Cells Counted Total [#] in B sarah fluidOrdered By: Tez Irene on 04-11-2022 Cells Counted Total (Body fld) [#] 1147 /uL [facility] Comment on above: The reference interv al and other method performance specifications have not been established for this body fluid. The test result must be integrated into the clinical context for interpretation. Color of Spun Body fluidOrde red By: Tez Irene on 04-11-2022 Color (Spun body fld) Straw [facility] Comment on above: The reference interv al and other method performance specifications have not been established for this body fluid. The test result must be integrated into the clinical context for interpretation. Determination of appearance of body fluidOrdered By: Tez Irene on 04-11-2022 Appearance (Body fld) Hazy [facility] Comment on above: The reference interv al and other method performance specifications have not been established for this body fluid. The test result must be integrated into the clinical context for interpretation. Erythrocytes [#/volume] in B sarah fluid by Automated countOrdered By: Tez Irene on 04-11-2022 RBC Auto (Body fld) [#/Vol] 73397 mm^3 [facility] Comment on above: The reference interv al and other method performance specifications have not been established for this body fluid. The test result must be integrated into the clinical context for interpretation. Evaluation of color of body fluidOrdered By: Tez Irene on 04-11-2022 Color (Body fld) Straw [facility] Comment on above: The reference interv al and other method performance specifications have not been established for this body fluid. The test result must be integrated into the clinical context for interpretation. Gram stain for investigation of transfusion reactionOrdered By: Tez Irene on 04-11-2022 Microscopic observation Gram stain Nom (Unsp spec) [facility] Lactate dehydrogenase measur ement (enzymatic activity/volume)Ordered By: Tez Irene on 04-11-2022 LDH (Unsp spec) [Catalytic activity/Vol] 88 [IU]/mL [facility] Comment on above: No reference range e stablished LDH (Unsp spec) [Catalytic activity/Vol] 100 U/L 45-190 [facility] Manual body fluid eosinophil s/100 leukocytesOrdered By: Tez Irene on 04-11-2022 Eosinophils/100 WBC Manual cnt (Body fld) 0 /100{WBC} 0-3 [facility] Manual body fluid lymphocyte s/100 leukocytesOrdered By: Tez Irene on 04-11-2022 Lymphocytes/100 WBC Manual cnt (Body fld) 61 % [facility] Comment on above: The reference interv al and other method performance specifications have not been established for this body fluid. The test result must be integrated into the clinical context for interpretation. Neutrophils/100 WBC Manual c nt (Body fld)Ordered By: Tez Irene on 04-11-2022 Neutrophils/100 WBC (Body fld) 35 % [facility] Comment on above: The reference interv al and other method performance specifications have not been established for this body fluid. The test result must be integrated into the clinical context for interpretation. Troponin I.cardiac [Mass/vol ume] in Serum or Plasma by High sensitivity methodOrdered By: Tez Irene on 04-11-2022 Troponin I.cardiac High sensitivity method [Mass/Vol] 5 pg/mL 0-20 [facility] Albumin [Mass/volume] in Ser um or PlasmaOrdered By: Kali Longo on 04-10-2022 Albumin [Mass/Vol] 3.3 g/dL 3.2-5.5 [facility] Albumin [Mass/volume] in Ser um or PlasmaOrdered By: Estela Vamra on 04-10-2022 Albumin [Mass/Vol] 3.4 g/dL 3.2-5.5 [facility] Bacterial blood cultureOrder ed By: Tez Irene on 04-10-2022 Bacteria identified Cx Nom (Bld) NO GROWTH 5 DAYS [facility] Basophils Auto (Bld) [#/Vol] Ordered By: Kali Longo on 04-10-2022 Basophils (Bld) [#/Vol] 0.1 10*3/uL 0.0-0.2 [facility] Basophils Auto (Bld) [#/Vol] Ordered By: Estela Varma on 04-10-2022 Basophils (Bld) [#/Vol] 0.1 10*3/uL 0.0-0.2 [facility] Basophils/100 WBC Auto (Bld) Ordered By: Kali Longo on 04-10-2022 Basophils/100 WBC (Bld) 1.0 % . [facility] Basophils/100 WBC Auto (Bld) Ordered By: Estela Varma on 04-10-2022 Basophils/100 WBC (Bld) 0.9 % . [facility] Creatinine and Glomerular fi ltration rate.predicted panel (S/P/Bld)Ordered By: Kali Longo on 04-10-2022 Creatinine [Mass/Vol] 0.86 mg/dL 0.64-1.27 [facility] Creatinine and Glomerular fi ltration rate.predicted panel (S/P/Bld)Ordered By: Estela Varma on 04-10-2022 Creatinine [Mass/Vol] 0.92 mg/dL 0.64-1.27 [facility] Eosinophils Auto (Bld) [#/Vo l]Ordered By: Kali Longo on 04-10-2022 Eosinophils (Bld) [#/Vol] 0.1 10*3/uL 0.0-0.45 [facility] Eosinophils Auto (Bld) [#/Vo l]Ordered By: Estela Varma on 04-10-2022 Eosinophils (Bld) [#/Vol] 0.2 10*3/uL 0.0-0.45 [facility] Eosinophils/100 WBC Auto (Bl d)Ordered By: Kali Longo on 04-10-2022 Eosinophils/100 WBC (Bld) 1.5 % . [facility] Eosinophils/100 WBC Auto (Bl d)Ordered By: Estela Varma on 04-10-2022 Eosinophils/100 WBC (Bld) 2.9 % . [facility] Erythrocyte distribution wid th Auto (RBC) [Ratio]Ordered By: Kali Longo on 04-10-2022 Erythrocyte distribution width (RBC) [Ratio] 14.1 % 12.0-14.8 [facility] Erythrocyte distribution wid th Auto (RBC) [Ratio]Ordered By: Estela Varma on 04-10-2022 Erythrocyte distribution width (RBC) [Ratio] 14.6 % 12.0-14.8 [facility] Estimated glomerular filtrat ion rate (GFR) non- AmericanOrdered By: Kali Longo on 04-10-2022 GFR/1.73 sq M.predicted among non-blacks MDRD (S/P/Bld) [Vol rate/Area] > 60 mL/Min [facility] Estimated glomerular filtrat ion rate (GFR) non- AmericanOrdered By: Estela Varma on 04-10-2022 GFR/1.73 sq M.predicted among non-blacks MDRD (S/P/Bld) [Vol rate/Area] > 60 mL/Min [facility] Globulin Calc (S) [Mass/Vol] Ordered By: Kali Longo on 04-10-2022 Globulin (S) [Mass/Vol] 3.1 g/dL [facility] Globulin Calc (S) [Mass/Vol] Ordered By: Estela Varma on 04-10-2022 Globulin (S) [Mass/Vol] 3.1 g/dL [facility] Hematocrit Auto (Bld) [Volum e fraction]Ordered By: Kali Longo on 04-10-2022 Hematocrit (Bld) [Volume fraction] 44.7 % 38.8-50.0 [facility] Hematocrit Auto (Bld) [Volum e fraction]Ordered By: Estela Varma on 04-10-2022 Hematocrit (Bld) [Volume fraction] 46.1 % 38.8-50.0 [facility] Hemoglobin [Mass/volume] in BloodOrdered By: Kali Longo on 04-10-2022 Hemoglobin (Bld) [Mass/Vol] 15.2 g/dL 13.0-17.0 [facility] Hemoglobin [Mass/volume] in BloodOrdered By: Estela Varma on 04-10-2022 Hemoglobin (Bld) [Mass/Vol] 15.5 g/dL 13.0-17.0 [facility] Laboratory - Chemistry and C hemistry - challengeOrdered By: Kali Longo on 04-10-2022 Natriuretic peptide B (Bld) [Mass/Vol] 19.0 pg/mL 5-100 [facility] Laboratory - Hematology and Cell countsOrdered By: Kali Longo on 04-10-2022 Nucleated RBC/100 WBC (Bld) [Ratio] 0.1 % 0-0.5 [facility] Laboratory - Hematology and Cell countsOrdered By: Estela Varma on 04-10-2022 Nucleated RBC/100 WBC (Bld) [Ratio] 0.1 % 0-0.5 [facility] Leukocytes [#/volume] in Blo od by Automated countOrdered By: Kali Longo on 04-10-2022 WBC (Bld) [#/Vol] 6.1 10*3/uL 4.5-11.0 [facility] Leukocytes [#/volume] in Blo od by Automated countOrdered By: Estela Varma on 04-10-2022 WBC (Bld) [#/Vol] 6.3 10*3/uL 4.5-11.0 [facility] Lymphocytes Auto (Bld) [#/Vo l]Ordered By: Kali Longo on 04-10-2022 Lymphocytes (Bld) [#/Vol] 0.9 10*3/uL 1.00-4.8 [facility] Lymphocytes Auto (Bld) [#/Vo l]Ordered By: Estela Varma on 04-10-2022 Lymphocytes (Bld) [#/Vol] 1.0 10*3/uL 1.00-4.8 [facility] Lymphocytes/100 WBC Auto (Bl d)Ordered By: Kali Longo on 04-10-2022 Lymphocytes/100 WBC (Bld) 14.2 % . [facility] Lymphocytes/100 WBC Auto (Bl d)Ordered By: Estela Varma on 04-10-2022 Lymphocytes/100 WBC (Bld) 16.2 % . [facility] MCH Auto (RBC) [Entitic mass ]Ordered By: Kali Longo on 04-10-2022 MCH (RBC) [Entitic mass] 32.9 pg 27.5-35.2 [facility] MCH Auto (RBC) [Entitic mass ]Ordered By: Estela Varma on 04-10-2022 MCH (RBC) [Entitic mass] 32.6 pg 27.5-35.2 [facility] MCHC Auto (RBC) [Mass/Vol]Or dered By: Kali Longo on 04-10-2022 MCHC (RBC) [Mass/Vol] 33.9 g/dL 32.5-35.6 [facility] MCHC Auto (RBC) [Mass/Vol]Or dered By: Estela Varma on 04-10-2022 MCHC (RBC) [Mass/Vol] 33.6 g/dL 32.5-35.6 [facility] MCV Auto (RBC) [Entitic vol] Ordered By: Kali Longo on 04-10-2022 MCV (RBC) [Entitic vol] 96.9 fL 83.5-101 [facility] MCV Auto (RBC) [Entitic vol] Ordered By: Estela Varma on 04-10-2022 MCV (RBC) [Entitic vol] 97.2 fL 83.5-101 [facility] Monocytes Auto (Bld) [#/Vol] Ordered By: Kali Longo on 04-10-2022 Monocytes (Bld) [#/Vol] 0.6 10*3/uL 0.0-0.8 [facility] Monocytes Auto (Bld) [#/Vol] Ordered By: Estela Varma on 04-10-2022 Monocytes (Bld) [#/Vol] 0.5 10*3/uL 0.0-0.8 [facility] Monocytes/100 WBC Auto (Bld) Ordered By: Kali Longo on 04-10-2022 Monocytes/100 WBC (Bld) 9.9 % . [facility] Monocytes/100 WBC Auto (Bld) Ordered By: Estela Varma on 04-10-2022 Monocytes/100 WBC (Bld) 8.6 % . [facility] Neutrophils Auto (Bld) [#/Vo l]Ordered By: Kali Longo on 04-10-2022 Neutrophils (Bld) [#/Vol] 4.5 10*3/uL 1.8-7.7 [facility] Neutrophils Auto (Bld) [#/Vo l]Ordered By: Estela Varma on 04-10-2022 Neutrophils (Bld) [#/Vol] 4.5 10*3/uL 1.8-7.7 [facility] Neutrophils/100 WBC Auto (Bl d)Ordered By: Kali Longo on 04-10-2022 Neutrophils/100 WBC (Bld) 73.4 % . [facility] Neutrophils/100 WBC Auto (Bl d)Ordered By: Estela Varma on 04-10-2022 Neutrophils/100 WBC (Bld) 71.4 % . [facility] No Panel InformationOrdered By: Kali Longo on 04-10-2022 D-Dimer Quantitative (PE/DVT) 529 ng/mL 0-243 [facility] Comment on above: The reference range for [...] conditions. Estimated GFR () > 60 mL/Min [facility] Comment on above: GFR estimated refere nce range: According to KDOQI guidelines, <60 ml/min/1.73m2 is sufficient to diagnose a patient with chronic kidney disease. Pharmacy Creatinine Clearance (Chem 92.25 [facility] No Panel InformationOrdered By: Estela Varma on 04-10-2022 Estimated GFR () > 60 mL/Min [facility] Comment on above: GFR estimated refere nce range: According to KDOQI guidelines, <60 ml/min/1.73m2 is sufficient to diagnose a patient with chronic kidney disease. Pharmacy Creatinine Clearance (Chem 89.21 [facility] Platelet mean volume Auto (B ld) [Entitic vol]Ordered By: Kali Longo on 04-10-2022 Platelet mean volume (Bld) [Entitic vol] 7.0 fL 6.6-10.1 [facility] Platelet mean volume Auto (B ld) [Entitic vol]Ordered By: Estela Varma on 04-10-2022 Platelet mean volume (Bld) [Entitic vol] 7.4 fL 6.6-10.1 [facility] Platelets Auto (Bld) [#/Vol] Ordered By: Kali Longo on 04-10-2022 Platelets (Bld) [#/Vol] 242 10*3/uL 150-450 [facility] Platelets Auto (Bld) [#/Vol] Ordered By: Estela Varma on 04-10-2022 Platelets (Bld) [#/Vol] 239 10*3/uL 150-450 [facility] Protein [Mass/volume] in Ser um or PlasmaOrdered By: Kali Longo on 04-10-2022 Protein [Mass/Vol] 6.4 g/dL 6.1-7.9 [facility] Protein [Mass/volume] in Ser um or PlasmaOrdered By: Estela Varma on 04-10-2022 Protein [Mass/Vol] 6.5 g/dL 6.1-7.9 [facility] RBC Auto (Bld) [#/Vol]Ordere d By: Kali Longo on 04-10-2022 RBC (Bld) [#/Vol] 4.61 10*6/uL 3.90-5.60 [facility] RBC Auto (Bld) [#/Vol]Ordere d By: Estela Varma on 04-10-2022 RBC (Bld) [#/Vol] 4.75 10*6/uL 3.90-5.60 [facility] Serum or plasma alanine glynn otransferase measurement without P-5'-P (enzymatic activiOrdered By: Kali Longo on 04-10-2022 ALT No additional P-5'-P [Catalytic activity/Vol] 13 U/L [facility] Serum or plasma alanine glynn otransferase measurement without P-5'-P (enzymatic activiOrdered By: Estela Varma on 04-10-2022 ALT No additional P-5'-P [Catalytic activity/Vol] 14 U/L [facility] Serum or plasma albumin/glob ulin mass ratioOrdered By: Kali Longo on 04-10-2022 Albumin/Globulin [Mass ratio] 1.1 {ratio} [facility] Serum or plasma albumin/glob ulin mass ratioOrdered By: Estela Varma on 04-10-2022 Albumin/Globulin [Mass ratio] 1.1 {ratio} [facility] Serum or plasma alkaline abhijit sphatase measurement (enzymatic activity/volume)Ordered By: Kali Longo on 04-10-2022 ALP [Catalytic activity/Vol] 127 U/L [address] [place] [address] Serum or plasma alkaline abhijit sphatase measurement (enzymatic activity/volume)Ordered By: Estela Varma on 04-10-2022 ALP [Catalytic activity/Vol] 128 U/L [facility] Serum or plasma anion gap de terminationOrdered By: Kali Longo on 04-10-2022 Anion gap [Moles/Vol] 15.8 mmol/L 6.0-15.0 [facility] Serum or plasma anion gap de terminationOrdered By: Estela Varma on 04-10-2022 Anion gap [Moles/Vol] 17.3 mmol/L 6.0-15.0 [facility] Serum or plasma aspartate am inotransferase measurement (enzymatic activity/volume)Ordered By: Kali Longo on 04-10-2022 AST [Catalytic activity/Vol] 19 U/L [facility] Serum or plasma aspartate am inotransferase measurement (enzymatic activity/volume)Ordered By: Estela Varma on 04-10-2022 AST [Catalytic activity/Vol] 19 U/L [facility] Serum or plasma calcium ledy urement (mass/volume)Ordered By: Kali Longo on 04-10-2022 Calcium [Mass/Vol] 8.5 mg/dL 8.2-10.2 [facility] Serum or plasma calcium ledy urement (mass/volume)Ordered By: Estela Varma on 04-10-2022 Calcium [Mass/Vol] 8.5 mg/dL 8.2-10.2 [facility] Serum or plasma carcinoembry onic antigen measurement (mass/volume)Ordered By: Estela Varma on 04-10-2022 Carcinoembryonic Ag [Mass/Vol] 10.5 ng/mL 0.0-3.0 [facility] Serum or plasma chloride carlyn surement (moles/volume)Ordered By: Kali Longo on 04-10-2022 Chloride [Moles/Vol] 95 mmol/L 95-114 [facility] Serum or plasma chloride carlyn surement (moles/volume)Ordered By: Estela Varma on 04-10-2022 Chloride [Moles/Vol] 98 mmol/L 95-114 [facility] Serum or plasma glucose ledy urement (mass/volume)Ordered By: Kali Longo on 04-10-2022 Glucose [Mass/Vol] 75 mg/dL 70-100 [facility] Comment on above: ADA recommended refe rence rangeRandom Glucose Reference Range is dependent on time and content of last meal. Glucose of more than 200 mg/dL in a nonstressed, ambulatory subject supports the diagnosis of Diabetes Mellitus. Serum or plasma glucose ledy urement (mass/volume)Ordered By: Estela Varma on 04-10-2022 Glucose [Mass/Vol] 73 mg/dL 70-100 [facility] Comment on above: ADA recommended refe rence rangeRandom Glucose Reference Range is dependent on time and content of last meal. Glucose of more than 200 mg/dL in a nonstressed, ambulatory subject supports the diagnosis of Diabetes Mellitus. Serum or plasma potassium me asurement (moles/volume)Ordered By: Kali Longo on 04-10-2022 Potassium [Moles/Vol] 4.2 mmol/L 3.5-5.1 [facility] Serum or plasma potassium me asurement (moles/volume)Ordered By: Estela Varma on 04-10-2022 Potassium [Moles/Vol] 4.0 mmol/L 3.5-5.1 [facility] Serum or plasma sodium measu rement (moles/volume)Ordered By: Kali Longo on 04-10-2022 Sodium [Moles/Vol] 130 mmol/L 136-146 [facility] Serum or plasma sodium measu rement (moles/volume)Ordered By: Estela Varma on 04-10-2022 Sodium [Moles/Vol] 131 mmol/L 136-146 [facility] Serum or plasma total biliru bin measurement (mass/volume)Ordered By: Kali Longo on 04-10-2022 Bilirubin [Mass/Vol] 0.6 mg/dL 0.3-1.2 [facility] Serum or plasma total biliru bin measurement (mass/volume)Ordered By: Estela Varma on 04-10-2022 Bilirubin [Mass/Vol] 0.7 mg/dL 0.3-1.2 [facility] Serum or plasma total carbon dioxide measurement (moles/volume)Ordered By: Kali Longo on 04-10-2022 CO2 [Moles/Vol] 23.4 mmol/L 22.0-30.0 [facility] Serum or plasma total carbon dioxide measurement (moles/volume)Ordered By: Estela Varma on 04-10-2022 CO2 [Moles/Vol] 19.7 mmol/L 22.0-30.0 [facility] Serum or plasma urea nitroge n measurement (mass/volume)Ordered By: Kali Longo on 04-10-2022 Urea nitrogen [Mass/Vol] 7 mg/dL 9-23 [facility] Serum or plasma urea nitroge n measurement (mass/volume)Ordered By: Estela Varma on 04-10-2022 Urea nitrogen [Mass/Vol] 7 mg/dL 02-03 [facility] TSH DL <= 0.005 mIU/L QnOrde red By: Estela Varma on 04-10-2022 TSH Qn 2.57 m[IU]/L 0.45-5.33 [facility] Troponin I.cardiac [Mass/vol ume] in Serum or Plasma by High sensitivity methodOrdered By: Kali Longo on 04-10-2022 Troponin I.cardiac High sensitivity method [Mass/Vol] 5 pg/mL [facility] Creatinine and Glomerular fi ltration rate.predicted panel (S/P/Bld)Ordered By: Estela Varma on 01-03-2022 Creatinine [Mass/Vol] 0.69 mg/dL 0.64-1.27 [facility] Estimated glomerular filtrat ion rate (GFR) non- AmericanOrdered By: Estela Varma on 01-03-2022 GFR/1.73 sq M.predicted among non-blacks MDRD (S/P/Bld) [Vol rate/Area] > 60 mL/Min [facility] No Panel InformationOrdered By: Estela Varma on 01-03-2022 Estimated GFR () > 60 mL/Min [facility] Comment on above: GFR estimated refere nce range: According to KDOQI guidelines, <60 ml/min/1.73m2 is sufficient to diagnose a patient with chronic kidney disease. Pharmacy Creatinine Clearance (Chem 122.86 [facility] Serum or plasma urea nitroge n measurement (mass/volume)Ordered By: Estela Varma on 01-03-2022 Urea nitrogen [Mass/Vol] 3 mg/dL 02-03 [facility] Office Visit (Cardiology)on 11-29-2021 Follow-up visit Diagnoses/Problems Assessed Lung cancer (162.9) (C34.90) Chest pain (786.50) (R07.9) Former smoker (V15.82) (Z87.891) quit 2020 1ppd Body mass index (BMI) of 20.0 to 20.9 in adult (V85.1) (Z68.20) COPD (chronic obstructive pulmonary disease) (496) (J44.9) Orders Health Maintenance Depression Follow-up Visit Outpatient Follow-up Status: Complete Done: [id number] SocHx: Former smoker Tobacco Use Screening; Status:Complete; Done: [id number] Patient Instructions By signing my name below, [...] Complaint Follow up Heart Cath results. 56-year-old Afro-[place] gentleman returns with chief complaints of chest [...] catheterization performed this year Recommendations: We did gambling counsellor him on seeking further assistance in regards [...] negative for complaint. Vitals Vital Signs Recorded: [id number] 09:05AM Heart Rate96, R Radial [id number], RUE, Sitting [id number], RUE, Sitting Blood Pressure Cuff SizeAdult Height6 ft Srgssu720 lb 8 oz BMI Rzkyhkmlwv12.28 kg/m2 BSA Calculated1.88 Tobacco Useb) No (more content not included)... Normal [facility] CARDIAC SONIA 3-6on 2 CK [Catalytic activity/Vol] 55 U/L Normal 39-308 [facility] Comment on above: Performed By: #### C MREP #### [facility] [address] [place] [address] Dr. Sushant Pradhan CK.MB [Mass/Vol] 1.25 ng/mL Normal <=3.60 [facility] Comment on above: Performed By: #### C MREP #### [facility] [address] [address] [address] Sushant Pradhan HSTROP 4.5 pg/mL Normal 4.0-76.1 [facility] Comment on above: Result Comment: CUT- OFF POINTS HAVE BEEN ESTABLISHED BASED ON THE FOURTH UNIVERSAL DEFINITIONS OF MYOCARDIAL INFARCTION. THE UPPER REFERENCE LIMIT (URL) OF TROPONIN, DEFINED THE 99TH PERCENTILE OF cTnI DISTRIBUTION IN A REFERENCE POPULATION, HAS BEEN CONFIRMED THE DECISION THRESHOLD FOR TX DIAGNOSIS. Performed By: #### C MREP #### [facility] [address] [place] [address] Dr. Sushant Pradhan CBC AUTO DIFFon 11-24-2021 BASO # 0.0 103/ul Normal 0.0-0.1 [facility] Comment on above: Performed By: #### C BC #### [facility] [address] [place] [address] Dr. Sushant Pradhan Basophils/100 WBC (Bld) 0.2 % Normal 0.2-2.0 [facility] Comment on above: Performed By: #### C BC #### [facility] [address] [address] [address] Sushant Pradhan EO # 0.0 103/ul Normal 0.0-0.7 [facility] Comment on above: Performed By: #### C BC #### [facility] [address] [place] [address] Dr. Sushant Pradhan Eosinophils/100 WBC (Bld) 0.0 % Critically low 0.9-7.0 [facility] Comment on above: Performed By: #### C BC #### [facility] [address] [address] [address] Sushant Pradhan Erythrocyte distribution width (RBC) [Ratio] 14.7 % Normal 11.0-15.0 [facility] Comment on above: Performed By: #### C BC #### [facility] [address] [place] [address] Dr. Sushant Pradhan Hematocrit (Bld) [Volume fraction] 35.5 % Critically low 42.0-54.0 [facility] Comment on above: Performed By: #### C BC #### [facility] [address] [place] [address] Dr. Sushant Pradhan Hemoglobin (Bld) [Mass/Vol] 12.8 g/dL Critically low 14.0-18.0 [facility] Comment on above: Performed By: #### C BC #### [facility] [address] [place] [address] Dr. Sushant Pradhan IG # 0.01 10e3/ul Normal 0.00-0.03 [facility] Comment on above: Performed By: #### C BC #### [facility] [address] [place] [address] Dr. Sushant Pradhan IG % 0.2 % Normal 0.0-0.5 [facility] Comment on above: Performed By: #### C BC #### [facility] [address] [place] [address] Dr. Sushant Pradhan LYMPH # 0.5 103/ul Critically low 1.2-3.8 [facility] Comment on above: Performed By: #### C BC #### [facility] [address] [place] [address] Dr. Sushant Pradhan Lymphocytes/100 WBC (Bld) 8.2 % Critically low 20.5-60.0 [facility] Comment on above: Performed By: #### C BC #### [facility] [address] [place] [address] Dr. Sushant Pradhan MANUAL DIFF REQ NO Normal [facility] Comment on above: Performed By: #### C BC #### [facility] [address] [address] [address] Sushant Pradhan MCH (RBC) [Entitic mass] 32.5 pg Normal 25.9-34.0 [facility] Comment on above: Performed By: #### C BC #### [facility] [address] [place] [address] Dr. Sushant Pradhan MCHC (RBC) [Mass/Vol] 36.1 g/dL Critically high 29.9-35.2 [facility] Comment on above: Performed By: #### C BC #### [facility] [address] [place] [address] Dr. Sushant Pradhan MCV (RBC) [Entitic vol] 90.1 fL Normal 80.0-94.0 [facility] Comment on above: Performed By: #### C BC #### [facility] [address] [place] [address] Dr. Sushant Pradhan MONO # 0.2 103/ul Critically low 0.3-0.8 [facility] Comment on above: Performed By: #### C BC #### [facility] [address] [place] [address] Dr. Sushant Pradhan Monocytes/100 WBC (Bld) 3.5 % Normal 1.7-12.0 [facility] Comment on above: Performed By: #### C BC #### [facility] [address] [place] [address] Dr. Sushant Pradhan NEUT # 4.8 103/ul Normal 1.4-6.5 [facility] Comment on above: Performed By: #### C BC #### [facility] [address] [place] [address] Dr. Sushant Pradhan Neutrophils/100 WBC (Bld) 87.9 % Critically high 43.0-75.0 [facility] Comment on above: Performed By: #### C BC #### [facility] [address] [place] [address] Dr. Sushant Pradhan Platelet mean volume (Bld) [Entitic vol] 9.4 fL Critically low 9.5-13.5 [facility] Comment on above: Performed By: #### C BC #### [facility] [address] [address] [address] Sushant Pradhan PLT 135 103/ul Critically low 150-450 [facility] Comment on above: Performed By: #### C BC #### [facility] [address] [address] [address] Sushant Pradhan RBC 3.94 106/ul Critically low 4.70-6.10 [facility] Comment on above: Performed By: #### C BC #### [facility] [address] [address] [address] Sushant Pradhan WBC 5.5 103/ul Normal 4.0-11.0 [facility] Comment on above: Performed By: #### C BC #### [facility] [address] [address] [address] Sushant Pradhan LIPID PROFILEon 11-24-2021 CHOL-HDL RATIO NORM SEE BELOW Normal [facility] Comment on above: Result Comment: 3.3 - 4.4 LOW RISK 4.4 - 7.1 AVERAGE RISK 7.1 - 11.0 MODERATE RISK >11.0 HIGH RISK Performed By: #### L IPID, BMP #### [facility] [address] [place] [address] Dr. Sushant Pradhan Cholesterol [Mass/Vol] 126 mg/dL Normal <=200 [facility] Comment on above: Performed By: #### L IPID, BMP #### [facility] [address] [place] [address] Dr. Sushant Pradhan Cholesterol in HDL [Mass/Vol] 73 mg/dL Critically high 40-60 [facility] Comment on above: Performed By: #### L IPID, BMP #### [facility] [address] [place] [address] Dr. Sushant Pradhan Cholesterol in LDL [Mass/Vol] 44.2 mg/dL Normal [facility] Comment on above: Performed By: #### L IPID, BMP #### [facility] [address] [address] [address] Sushant Pradhan Cholesterol.total/Cho lesterol in HDL [Mass ratio] 1.7 {ratio} Normal [facility] Comment on above: Performed By: #### L IPID, BMP #### [facility] [address] [address] [address] Sushant Pradhan HDL NORMAL > or = 60 mg/dl - LO W CARDIOVASCULAR RISK <40 mg/dl - HIGH CARDIOVASCULAR RISK Normal [facility] Comment on above: Performed By: #### L IPID, BMP #### [facility] [address] [address] [address] Sushant Pradhan LDL CALC NORMAL SEE BELOW Normal [facility] Comment on above: Result Comment: <100 mg/dl OPTIMAL 100 - 129 mg/dl NEAR OR ABOVE OPTIMAL 130 - 159 mg/dl BORDERLINE HIGH 160 - 189 mg/dl HIGH >190 mg/dl VERY HIGH Performed By: #### L IPID, BMP #### [facility] [address] [address] [address] Sushant Pradhan Triglyceride [Mass/Vol] 44 mg/dL Normal <=150 [facility] Comment on above: Performed By: #### L IPID, BMP #### [facility] [address] [address] [address] Sushant Pradhan VLDL CALC 8.8 mg/dL Normal [facility] Comment on above: Performed By: #### L IPID, BMP #### [facility] [address] [address] [address] Sushant Pradhan NM STRESS/REST MULTIon 11-24 NM STRESS/REST MULTI Patient: EDISON ECHOLS DIMAS Mosqueda. Exam Date: 11/24/2021 : 1965 Gender:M Ordering : DR LIZBET LARA . Admission #: [id number] Family : Order #: [id number] CLICK HERE TO VIEW EXAM RADIOLOGY REPORT [...] Pagan MD on 11/24/2021 at 15:06 Normal [facility] PROF CHEM 8 (BAS METB)on Anion gap [Moles/Vol] 10.7 mmol/L Normal [facility] Comment on above: Performed By: #### L IPID, BMP #### [facility] [address] [place] [address] Dr. Sushant Pradhan Calcium [Mass/Vol] 8.5 mg/dL Normal 8.5-10.1 [facility] Comment on above: Performed By: #### L IPID, BMP #### [facility] [address] [place] [address] Dr. Sushant Pradhan Chloride [Moles/Vol] 96 mmol/L Critically low 98-107 [facility] Comment on above: Performed By: #### L IPID, BMP #### [facility] [address] [address] [address] Sushant Pradhan CO2 [Moles/Vol] 22.0 mmol/L Normal 21.0-32.0 [facility] Comment on above: Performed By: #### L IPID, BMP #### [facility] [address] [address] [address] Sushant Pradhan Creatinine [Mass/Vol] 1.04 mg/dL Normal 0.70-1.30 [facility] Comment on above: Performed By: #### L IPID, BMP #### [facility] [address] [address] [address] Sushant Pradhan EGFR-AF CHILEAN >60 Normal >=60 [facility] Comment on above: Performed By: #### L IPID, BMP #### [facility] [address] [address] [address] Sushant Pradhan EGFR-NON AF CHILEAN >60 Normal >=60 [facility] Comment on above: Performed By: #### L IPID, BMP #### [facility] [address] [address] [address] Sushant Pradhan Glucose [Mass/Vol] 139 mg/dL Critically high 74-106 [facility] Comment on above: Performed By: #### L IPID, BMP #### [facility] [address] [place] [address] Dr. Sushant Pradhan Potassium [Moles/Vol] 4.2 mmol/L Normal 3.5-5.1 [facility] Comment on above: Performed By: #### L IPID, BMP #### [facility] [address] [place] [address] Dr. Sushant Pradhan Sodium [Moles/Vol] 127 mmol/L Critically low 136-145 [facility] Comment on above: Performed By: #### L IPID, BMP #### [facility] [address] [place] [address] Dr. Sushant Pradhan Urea nitrogen [Mass/Vol] 12.0 mg/dL Normal 7.0-18.0 [facility] Comment on above: Performed By: #### L IPID, BMP #### [facility] [address] [place] [address] Dr. Sushant Pradhan Urea nitrogen/Creatinine [Mass ratio] 11.5 mg/mg Normal [facility] Comment on above: Performed By: #### L IPID, BMP #### [facility] [address] [address] [address] Sushant Pradhan BNPon 11-23-2021 Natriuretic peptide B (Bld) [Mass/Vol] 189.0 pg/mL Normal <=900.0 [facility] Comment on above: Performed By: #### B STRIPPING SHOVEL OPERATOR, HSTROPN, BMP #### [facility] [address] [place] [address] Dr. Sushant Pradhan CARDIAC SONIA 3-6on 2 CK [Catalytic activity/Vol] 73 U/L Normal 39-308 [facility] Comment on above: Performed By: #### C MREP #### [facility] [address] [place] [address] Dr. Sushant Pradhan CK.MB [Mass/Vol] 1.78 ng/mL Normal <=3.60 [facility] Comment on above: Performed By: #### C MREP #### [facility] [address] [place] [address] Dr. Sushant Pradhan HSTROP 4.2 pg/mL Normal 4.0-76.1 [facility] Comment on above: Result Comment: CUT- OFF POINTS HAVE BEEN ESTABLISHED BASED ON THE FOURTH UNIVERSAL DEFINITIONS OF MYOCARDIAL INFARCTION. THE UPPER REFERENCE LIMIT (URL) OF TROPONIN, DEFINED THE 99TH PERCENTILE OF cTnI DISTRIBUTION IN A REFERENCE POPULATION, HAS BEEN CONFIRMED THE DECISION THRESHOLD FOR TX DIAGNOSIS. Performed By: #### C MREP #### [facility] [address] [place] [address] Dr. Sushant Pradhan CBC AUTO DIFFon 11-23-2021 BASO # 0.0 103/ul Normal 0.0-0.1 [facility] Comment on above: Performed By: #### C BC #### [facility] [address] [place] [address] Dr. Sushant Pradhan Basophils/100 WBC (Bld) 0.5 % Normal 0.2-2.0 [facility] Comment on above: Performed By: #### C BC #### [facility] [address] [place] [address] Dr. Sushant Pradhan EO # 0.1 103/ul Normal 0.0-0.7 [facility] Comment on above: Performed By: #### C BC #### [facility] [address] [place] [address] Dr. Sushant Pradhan Eosinophils/100 WBC (Bld) 0.9 % Normal 0.9-7.0 [facility] Comment on above: Performed By: #### C BC #### [facility] [address] [place] [address] Dr. Sushant Pradhan Erythrocyte distribution width (RBC) [Ratio] 15.3 % Critically high 11.0-15.0 [facility] Comment on above: Performed By: #### C BC #### [facility] [address] [place] [address] Dr. Sushant Pradhan Hematocrit (Bld) [Volume fraction] 38.7 % Critically low 42.0-54.0 [facility] Comment on above: Performed By: #### C BC #### [facility] [address] [place] [address] Dr. Sushant Pradhan Hemoglobin (Bld) [Mass/Vol] 14.0 g/dL Normal 14.0-18.0 [facility] Comment on above: Performed By: #### C BC #### [facility] [address] [place] [address] Dr. Sushant Pradhan IG # 0.01 10e3/ul Normal 0.00-0.03 [facility] Comment on above: Performed By: #### C BC #### [facility] [address] [place] [address] Dr. Sushant Pradhan IG % 0.2 % Normal 0.0-0.5 [facility] Comment on above: Performed By: #### C BC #### [facility] [address] [place] [address] Dr. Sushant Pradhan LYMPH # 1.1 103/ul Critically low 1.2-3.8 [facility] Comment on above: Performed By: #### C BC #### [facility] [address] [place] [address] Dr. Sushant Pradhan Lymphocytes/100 WBC (Bld) 17.2 % Critically low 20.5-60.0 [facility] Comment on above: Performed By: #### C BC #### [facility] [address] [place] [address] Dr. Sushant Pradhan MANUAL DIFF REQ NO Normal [facility] Comment on above: Performed By: #### C BC #### [facility] [address] [place] [address] Dr. Sushant Pradhan MCH (RBC) [Entitic mass] 32.7 pg Normal 25.9-34.0 [facility] Comment on above: Performed By: #### C BC #### [facility] [address] [place] [address] Dr. Sushant Pradhan MCHC (RBC) [Mass/Vol] 36.2 g/dL Critically high 29.9-35.2 [facility] Comment on above: Performed By: #### C BC #### [facility] [address] [place] [address] Dr. Sushant Pradhan MCV (RBC) [Entitic vol] 90.4 fL Normal 80.0-94.0 [facility] Comment on above: Performed By: #### C BC #### [facility] [address] [place] [address] Dr. Sushant Pradhan MONO # 0.5 103/ul Normal 0.3-0.8 [facility] Comment on above: Performed By: #### C BC #### [facility] [address] [place] [address] Dr. Sushant Pradhan Monocytes/100 WBC (Bld) 7.8 % Normal 1.7-12.0 [facility] Comment on above: Performed By: #### C BC #### [facility] [address] [place] [address] Dr. Sushant Pradhan NEUT # 4.7 103/ul Normal 1.4-6.5 [facility] Comment on above: Performed By: #### C BC #### [facility] [address] [place] [address] Dr. Sushant Pradhan Neutrophils/100 WBC (Bld) 73.4 % Normal 43.0-75.0 [facility] Comment on above: Performed By: #### C BC #### [facility] [address] [place] [address] Dr. Sushant Pradhan Platelet mean volume (Bld) [Entitic vol] 9.1 fL Critically low 9.5-13.5 [facility] Comment on above: Performed By: #### C BC #### [facility] [address] [place], [place] [address] Dr. Sushant Pradhan PLT 153 103/ul Normal 150-450 [facility] Comment on above: Performed By: #### C BC #### [facility] [address] [address] [address] Sushant Pradhan RBC 4.28 106/ul Critically low 4.70-6.10 [facility] Comment on above: Performed By: #### C BC #### [facility] [id number] Sushant Pradhan WBC 6.4 103/ul Normal 4.0-11.0 [facility] Comment on above: Performed By: #### C BC #### [facility] [address] [place] [address] Dr. Sushant Pradhan CTA CHEST WO W CONon 022 CTA CHEST WO W CON EXAMINATION: [...] by: MARCE PAGAN Date: 2021-11-23 15:47 Normal [facility] Covid-19 PCR (CVDTBH)on 11-11 SARS-CoV-2 (COVID-19) RNA DEANA+probe Ql (Unsp spec) Not detected Normal NOT DETECTED [facility] Comment on above: Result Comment: [...] for this test is supported by the [place] of Health and Human Service's declaration that [...] used). Performed By: #### C BC #### [facility] [address] [place] [address] Dr. Sushant Pradhan PROF CHEM 8 (BAS METB)on Anion gap [Moles/Vol] 13.9 mmol/L Normal [facility] Comment on above: Performed By: #### B STRIPPING SHOVEL OPERATOR, HSTROPN, BMP #### [facility] [address] [address] [address] Sushant Pradhan Calcium [Mass/Vol] 8.4 mg/dL Critically low 8.5-10.1 [facility] Comment on above: Performed By: #### B STRIPPING SHOVEL OPERATOR, HSTROPN, BMP #### [facility] [address] [address] [address] Sushant Pradhan Chloride [Moles/Vol] 94 mmol/L Critically low 98-107 [facility] Comment on above: Performed By: #### B STRIPPING SHOVEL OPERATOR, HSTROPN, BMP #### [facility] [address] [address] [address] Sushant Pradhan CO2 [Moles/Vol] 24.7 mmol/L Normal 21.0-32.0 [facility] Comment on above: Performed By: #### B STRIPPING SHOVEL OPERATOR, HSTROPN, BMP #### [facility] [address] [place] [address] Dr. Sushant Pradhan Creatinine [Mass/Vol] 0.97 mg/dL Normal 0.70-1.30 [facility] Comment on above: Performed By: #### B STRIPPING SHOVEL OPERATOR, HSTROPN, BMP #### [facility] [address] [place] [address] Dr. Sushant Pradhan EGFR-AF CHILEAN >60 Normal >=60 [facility] Comment on above: Performed By: #### B STRIPPING SHOVEL OPERATOR, HSTROPN, BMP #### [facility] [address] [place] [address] Dr. Sushant Pradhan EGFR-NON AF CHILEAN >60 Normal >=60 [facility] Comment on above: Performed By: #### B STRIPPING SHOVEL OPERATOR, HSTROPN, BMP #### [facility] [address] [place] [address] Dr. Sushant Pradhan Glucose [Mass/Vol] 76 mg/dL Normal 74-106 [facility] Comment on above: Performed By: #### B STRIPPING SHOVEL OPERATOR, HSTROPN, BMP #### [facility] [address] [place] [address] Dr. Sushant Pradhan Potassium [Moles/Vol] 4.6 mmol/L Normal 3.5-5.1 [facility] Comment on above: Performed By: #### B STRIPPING SHOVEL OPERATOR, HSTROPN, BMP #### [facility] [address] [place] [address] Dr. Sushant Pradhan Sodium [Moles/Vol] 128 mmol/L Critically low 136-145 [facility] Comment on above: Performed By: #### B STRIPPING SHOVEL OPERATOR, HSTROPN, BMP #### [facility] [address] [place] [address] Dr. Sushant Pradhan Urea nitrogen [Mass/Vol] 9.0 mg/dL Normal 7.0-18.0 [facility] Comment on above: Performed By: #### B STRIPPING SHOVEL OPERATOR, HSTROPN, BMP #### [facility] [address] [place], [place] [address] Dr. Sushant Pradhan Urea nitrogen/Creatinine [Mass ratio] 9.3 mg/mg Normal [facility] Comment on above: Performed By: #### B STRIPPING SHOVEL OPERATOR, HSTROPN, BMP #### [facility] [address] [place], [place] [address] Dr. Sushant Pradhan TROPONIN, HIGH SENSITIVITYon 11-23-2021 HSTROP 4.4 pg/mL Normal 4.0-76.1 [facility] Comment on above: Result Comment: CUT- OFF POINTS HAVE BEEN ESTABLISHED BASED ON THE FOURTH UNIVERSAL DEFINITIONS OF MYOCARDIAL INFARCTION. THE UPPER REFERENCE LIMIT (URL) OF TROPONIN, DEFINED THE 99TH PERCENTILE OF cTnI DISTRIBUTION IN A REFERENCE POPULATION, HAS BEEN CONFIRMED THE DECISION THRESHOLD FOR TX DIAGNOSIS. Performed By: #### B STRIPPING SHOVEL OPERATOR, HSTROPN, BMP #### [facility] [address] [place] [address] [id number] [address] Sushant Pradhan Laboratory - Chemistry and C hemistry - challengeon 09-09-2021 Cholesterol [Mass/Vol] 125\S\125 below low threshold 140-200 [facility] 250 DO Work Phone: Comment on above: Chol less than 200 m g/dl low risk Chol 201-239 mg/dl borderline risk Chol 240 mg/dl and greater high risk Cholesterol in LDL [Mass/Vol] 46\S\46 Normal 0-100 [facility] 250 DO Work Phone: Comment on above: LDL ATP III CLASSIFI CATION LDL less than 100 mg/dL Optimal LDL 100-129 mg/dL Near or above optimal LDL 130-159 mg/dL Borderline high LDL 160-189 mg/dL High LDL greater than 189 mg/dL Very high Laboratory - Microbiology an d Antimicrobial susceptibilityon 09-09-2021 SARS-CoV-2 (COVID-19) RNA DEANA+probe Ql (Unsp spec) [facility] 250 DO Work Phone: No Panel Informationon 09-09 78.5\S\78.5 above high threshold 25.1-36.5 [facility] 250 DO Work Phone: Comment on above: PERFORMED BY:[facility] [place], [place] [phone] MEDICAL DIRECTORCATY DELCID M.D. 1.0\S\1.0 Normal [facility] 250 DO Work Phone: [...] valves: 3 - 4.5 11.5\S\11.5 Normal 9.0-12.9 [facility] 250 DO Work Phone: 1.8\S\1.8 Normal <5.0 [facility] 250 DO Work Phone: Comment on above: PERFORMED BY:[facility] [place] [place], [place] [phone] MEDICAL DIRECTORCATY DELCID M.D. 11\S\11 Normal [facility] 250 DO Work Phone: 57\S\57 Normal 35-149 [facility] 250 DO Work Phone: Comment on above: TRIG ATP III CLASSIF ICATION TRIG less than 150 mg/dL Normal TRIG 150-199 mg/dL Borderline high TRIG 200-500 mg/dL High TRIG greater than 500 mg/dL Very high Standard traceable to the Center for Disease Conrtrol and Prevention (CDC) test method. 68\S\68 Normal 29-71 [facility] 250 DO Work Phone: Comment on above: HDL CHOL ATP-III CLA SSIFICATION Cardiovascular Risk HDL > or equal to 60 mg/dL LOW HDL < 40 mg/dL HIGH Negative Normal Negative [facility] 250 DO Work Phone: Comment on above: This is a duplicate Jonna SARS Antigen (EROS) result to be used for statistical tracking purpose only.PERFORMED BY:[facility] [place] [id number] MEDICAL DIRECTORCATY DELCID M.D. 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) Orders Angina, class IV, Chest pain Cardiac Catherization; Status:Active - Retrospective Authorization; Requested for:08Sep2021; Chest pain Start: Aspirin 81 MG Oral Tablet Delayed Release; TAKE 1 TABLET DAILY DIRECTED Start: Metoprolol Tartrate 25 MG Oral Tablet; TAKE 0.5 TABLET Twice daily Start: Nitroglycerin 0.4 MG/HR Transdermal Patch 24 Hour; APPLY PATCH FOR 12 TO 14 HOURS DAILY, THEN REMOVE Health Maintenance IO EKG Electrocardiogram- 12 Lead; Status:Complete; Done: [id number] Lung cancer PHQ2 Screen Positive; Status:Complete - Retrospective Authorization; Done: [id number] SocHx: Former smoker Tobacco Use Screening; Status:Complete; Done: 08Sep2021 Patient Instructions By signing my name below, I, Krain Malloy LPN,Andreinaibe, attest that this documentation has been prepared [...] pain and dyspnea. Patient is a 56-year-old -[place] gentleman returns and seen in cardiology consultation [...] negative for complaint. Vitals Vital Signs Recorded: [id number] 10:09AMRecorded: 24Lxb1303 10:05AM Qjzngkla284, LUE, Txtebvn486, RUE, Sitting Lpceagawf01, LUE, Qnrfkqw30, RUE, Sitting Heart Rate96, Apical Height6 ft Axhjpu766 lb BMI Tdrcduotdt57.16 kg/m2 BSA (more content not included)... Normal [employer] Tobacco Screening.on 022 Adult depression screening assessment Yes [facility] 250 DO Work Phone: Fall risk assessment c) Not medically indicated [facility] 250 DO Work Phone: Tobacco use status CP b) No [facility] 250 DO Work Phone: Tobacco Screening. 3-Nearly every day [facility] 250 DO Work Phone: Tobacco Screening. 2-More than half the days [facility] 250 DO Work Phone: Tobacco Screening. 0-Not at all [facility] 250 DO Work Phone: Tobacco Screening. Extremely Difficult [facility] 250 DO Work Phone: Albumin [Mass/volume] in Ser um or PlasmaOrdered By: Estela Varma on 09-02-2021 Albumin [Mass/Vol] 3.8 g/dL 3.2-5.5 [facility] Basophils Auto (Bld) [#/Vol] Ordered By: Estela Varma on 09-02-2021 Basophils (Bld) [#/Vol] 0.0 10*3/uL 0.0-0.2 [facility] Basophils/100 WBC Auto (Bld) Ordered By: Estela Varma on 09-02-2021 Basophils/100 WBC (Bld) 0.7 % . [facility] Eosinophils Auto (Bld) [#/Vo l]Ordered By: Estela Varma on 09-02-2021 Eosinophils (Bld) [#/Vol] 0.2 10*3/uL 0.0-0.45 [facility] Eosinophils/100 WBC Auto (Bl d)Ordered By: Estela Varma on 09-02-2021 Eosinophils/100 WBC (Bld) 4.2 % . [facility] Erythrocyte distribution wid th Auto (RBC) [Ratio]Ordered By: Estela Varma on 09-02-2021 Erythrocyte distribution width (RBC) [Ratio] 15.7 % 12.0-14.8 [facility] Globulin Calc (S) [Mass/Vol] Ordered By: Estela Varma on 09-02-2021 Globulin (S) [Mass/Vol] 3.4 g/dL [facility] Glucose Glucometer (BldC) [M ass/Vol]Ordered By: George Ash on 09-02-2021 Glucose [Mass/Vol] 82 mg/dL [facility] Comment on above: Random Glucose Refer ence Range is dependent on time and content of last meal. Glucose of more than 200 mg/dL in a nonstressed, ambulatory subject supports the diagnosis of Diabetes Mellitus. Hematocrit Auto (Bld) [Volum e fraction]Ordered By: Estela Varma on 09-02-2021 Hematocrit (Bld) [Volume fraction] 42.4 % 38.8-50.0 [facility] Hemoglobin [Mass/volume] in BloodOrdered By: Estela Varma on 09-02-2021 Hemoglobin (Bld) [Mass/Vol] 14.6 g/dL 13.0-17.0 [facility] Laboratory - Hematology and Cell countsOrdered By: Estela Varma on 09-02-2021 Nucleated RBC/100 WBC (Bld) [Ratio] 0.1 % 0-0.5 [facility] Leukocytes [#/volume] in Blo od by Automated countOrdered By: Estela Varma on 09-02-2021 WBC (Bld) [#/Vol] 5.0 10*3/uL 4.5-11.0 [facility] Lymphocytes Auto (Bld) [#/Vo l]Ordered By: Estela Varma on 09-02-2021 Lymphocytes (Bld) [#/Vol] 0.9 10*3/uL 1.00-4.8 [facility] Lymphocytes/100 WBC Auto (Bl d)Ordered By: Estela Varma on 09-02-2021 Lymphocytes/100 WBC (Bld) 18.2 % . [facility] MCH Auto (RBC) [Entitic mass ]Ordered By: Estela Varma on 09-02-2021 MCH (RBC) [Entitic mass] 32.6 pg 27.5-35.2 [facility] MCHC Auto (RBC) [Mass/Vol]Or dered By: Estela Varma on 09-02-2021 MCHC (RBC) [Mass/Vol] 34.4 g/dL 32.5-35.6 [facility] MCV Auto (RBC) [Entitic vol] Ordered By: Estela Varma on 09-02-2021 MCV (RBC) [Entitic vol] 94.8 fL 83.5-101 [facility] Monocytes Auto (Bld) [#/Vol] Ordered By: Estela Varma on 09-02-2021 Monocytes (Bld) [#/Vol] 0.4 10*3/uL 0.0-0.8 [facility] Monocytes/100 WBC Auto (Bld) Ordered By: Estela Varma on 09-02-2021 Monocytes/100 WBC (Bld) 7.9 % . [facility] Neutrophils Auto (Bld) [#/Vo l]Ordered By: Estela Varma on 09-02-2021 Neutrophils (Bld) [#/Vol] 3.5 10*3/uL 1.8-7.7 [facility] Neutrophils/100 WBC Auto (Bl d)Ordered By: Estela Varma on 09-02-2021 Neutrophils/100 WBC (Bld) 69.0 % . [facility] Platelet mean volume Auto (B ld) [Entitic vol]Ordered By: Estela Varma on 09-02-2021 Platelet mean volume (Bld) [Entitic vol] 7.0 fL 6.6-10.1 [facility] Platelets Auto (Bld) [#/Vol] Ordered By: Estela Varma on 09-02-2021 Platelets (Bld) [#/Vol] 186 10*3/uL 150-450 [facility] Protein [Mass/volume] in Ser um or PlasmaOrdered By: Estela Varma on 09-02-2021 Protein [Mass/Vol] 7.2 g/dL 6.1-7.9 [facility] RBC Auto (Bld) [#/Vol]Ordere d By: Estela Varma on 09-02-2021 RBC (Bld) [#/Vol] 4.48 10*6/uL 3.90-5.60 [facility] Serum or plasma alanine glynn otransferase measurement without P-5'-P (enzymatic activiOrdered By: Estela Varma on 09-02-2021 ALT No additional P-5'-P [Catalytic activity/Vol] 13 U/L 10-60 [facility] Serum or plasma albumin/glob ulin mass ratioOrdered By: Estela Varma on 09-02-2021 Albumin/Globulin [Mass ratio] 1.1 {ratio} [facility] Serum or plasma alkaline abhijit sphatase measurement (enzymatic activity/volume)Ordered By: Estela Varma on 09-02-2021 ALP [Catalytic activity/Vol] 130 U/L 32-92 [facility] Serum or plasma aspartate am inotransferase measurement (enzymatic activity/volume)Ordered By: Estela Varma on 09-02-2021 AST [Catalytic activity/Vol] 18 U/L 10-42 [facility] Serum or plasma calcium ledy urement (mass/volume)Ordered By: Estela Varma on 09-02-2021 Calcium [Mass/Vol] 9.0 mg/dL 8.2-10.2 [facility] Serum or plasma carcinoembry onic antigen measurement (mass/volume)Ordered By: Estela Varma on 09-02-2021 Carcinoembryonic Ag [Mass/Vol] 11.4 ng/mL 0.0-3.0 [facility] Serum or plasma chloride carlyn surement (moles/volume)Ordered By: Estela Varma on 09-02-2021 Chloride [Moles/Vol] 100 mmol/L 95-114 [facility] Serum or plasma glucose ledy urement (mass/volume)Ordered By: Estela Varma on 09-02-2021 Glucose [Mass/Vol] 78 mg/dL 70-100 [facility] Comment on above: ADA recommended refe rence rangeRandom Glucose Reference Range is dependent on time and content of last meal. Glucose of more than 200 mg/dL in a nonstressed, ambulatory subject supports the diagnosis of Diabetes Mellitus. Serum or plasma potassium me asurement (moles/volume)Ordered By: Estela Varma on 09-02-2021 Potassium [Moles/Vol] 4.3 mmol/L 3.5-5.1 [facility] Serum or plasma sodium measu rement (moles/volume)Ordered By: Estela Varma on 09-02-2021 Sodium [Moles/Vol] 133 mmol/L 136-146 [facility] Serum or plasma total biliru bin measurement (mass/volume)Ordered By: Estela Varma on 09-02-2021 Bilirubin [Mass/Vol] 0.6 mg/dL 0.3-1.2 [facility] Serum or plasma total carbon dioxide measurement (moles/volume)Ordered By: Estela Varma on 09-02-2021 CO2 [Moles/Vol] 23.9 mmol/L 22.0-30.0 [facility] TSH DL <= 0.005 mIU/L QnOrde red By: George Ash on 01-31-2021 TSH Qn 1.65 m[IU]/L 0.45-5.33 [facility] Lipid Panel Fastingon 2020 Cholesterol [Mass/Vol] 145 mg/dL Normal 0-199 [facility] Comment on above: Result Comment: ATP III Cholesterol classification is Desirable. Performed By: #### L IPDF #### [facility] [address] [place] [address] HDL Cholesterol Fasting 49 mg/dL Normal 40-59 [facility] Comment on above: Result Comment: ATP III [...] CHD Performed By: #### L IPDF #### [facility] [address] [place] [address] LDL Cholesterol (Calculated) Fasting 76 mg/dL Normal 0-129 [facility] Comment on above: Result Comment: ATP III LDL Classification is Optimal. Performed By: #### L IPDF #### [facility] [address] [place] [address] Triglycerides Fasting 98 mg/dL Normal 0-150 [facility] Comment on above: Result Comment: ATP III Triglycerides Classification is Normal. Performed By: #### L IPDF #### [facility] [address] [place] [address] Vitamin B12 and Folateon Cobalamin (Vitamin B12) [Mass/Vol] 417 pg/mL Normal 232-1245 [facility] Comment on above: Performed By: #### B 12FO #### [facility] [address] [place] [address] Folate 13.4 ng/mL Normal 7.3-26.1 [facility] Comment on above: Result Comment: As o f 15, the methodology has changed. Results from this methodology should not be compared with results from previous methodology. Performed By: #### B 12FO #### [facility] [address] [place] [address] Vitamin Don 08-20-2020 Vitamin D 33.1 ng/mL Normal 30.0-100.0 [facility] Comment on above: Result Comment: (30- 100 ng/mL) Optimum Level This assay accurately quantifies the sum of vitamin D3, 25-Hydroxy and vitamin D2, 25-Hyroxy. Performed By: #### V ITD #### [facility] [address] [place] [address] Thyroxine (T4) free [Mass/vo lume] in Serum or Plasmaon 08-16-2020 Free T4 [Mass/Vol] 0.79 ng/dL 0.61-1.12 [facility] Lipid Profileon 08-06-2020 Cholesterol [Mass/Vol] 132 mg/dL Normal <200 [facility] Comment on above: Result Comment: Cholesterol Guidelines: <200 Desirable 200-240 Borderline >240 Undesirable Performed By: #### L IPR #### [id number] [place] [address] Orthopaedic Surgeon: Joe Todd MD Cholesterol in HDL [Mass/Vol] 41 mg/dL Normal >40 [facility] Comment on above: Result Comment: HDL Guidelines: <40 Undesirable 40-59 Borderline >59 Desirable Performed By: #### L IPR #### [facility] [address] [place] [address] Orthopaedic Surgeon: Joe Todd MD Cholesterol in LDL [Mass/Vol] 72 mg/dL Normal 0-130 [facility] Comment on above: Result Comment: LDL Guidelines: <100 Desirable 100-129 Near to/above Desirable 130-159 Borderline >159 Undesirable Direct (measured) LDL and calculated LDL are not interchangeable tests. Performed By: #### L IPR #### [facility] [address] [place] [address] Orthopaedic Surgeon: Joe Todd MD Cholesterol.total/Cho lesterol in HDL [Mass ratio] 3.2 {ratio} Normal <5 [facility] Comment on above: Performed By: #### L IPR #### [facility] [address] [place] [address] Orthopaedic Surgeon: Joe Todd MD Triglyceride [Mass/Vol] 93 mg/dL Normal <150 [facility] Comment on above: Result Comment: Triglyceride Guidelines: <150 Desirable 150-199 Borderline 200-499 High >499 Very high Based on AHA Guidelines for fasting triglyceride, February 2012. Performed By: #### L IPR #### [facility] [address] [place], [place] [id number] Orthopaedic Surgeon: Joe Todd MD Cholesterol in VLDL [Mass/Vol] NOT REPORTED Normal 06-12 [facility] Comment on above: Performed By: #### L IPR #### [facility] [address] [place], [place] [id number] Orthopaedic Surgeon: Joe Todd MD Direct bilirubin measurement on 07-05-2020 Bilirubin.direct [Mass/Vol] 0.1 mg/dL 0.0-0.4 [facility] Serum or plasma non-glucuron idated bilirubin measurement (mass/volume)on 07-05-2020 Bilirubin.indirect [Mass/Vol] 0.8 mg/dL [facility] Laboratory - Hematology and Cell countson 05-24-2020 WBC (Bld) [#/Vol] 4.9 10*3/uL 4.5-11.0 [facility] Blood anisocytosis detection on 03-08-2020 Anisocytosis Ql (Bld) Slight [facility] No Panel Informationon 03-08 Platelet Estimate Normal Normal [facility] Platelet Morphology Comment Normal Normal [facility] RBC morphologyon 03-08-2020 RBC morphology finding Nom (Bld) N/A [facility] CARDIAC STRESS/REST (DILAN CARDIAL PERFUSION/MIBI)on 03-03-2020 [facility] CARDIAC STRESS/REST (MYOCARDIAL PERFUSION/MIBI) Patient Name: KIRILL ECHOLS STUDY: MYOCARDIAL PERFUSION STRESS TEST WITH LEXISCAN Performing facility: [facility], [address], [address], \[place] [address] [facility] Provider: Ema Oliveira DO, FACC PCP: Dr. Danni Andrea Supervising provider: Tejal King MD, FACC INDICATION: Chest Pain; HISTORY: Gender: M; Age: 54 y/o ; Height: 182.88 cm; Weight: 71.2537242 kg. HTN; Chest Pain; COPD; Quit smoking in 2020 years ago. COMPARISON: No comparison. ACCESSION NUMBER(S): [id number]; [id number]; [id number] ORDERING CLINICIAN: LUKAS OLIVEIRA TECHNIQUE: ONE DAY [...] comparison. Electronically signed by: TEJAL KING MD [facility] CARDIAC STRESS/REST INJE CTIONon 03-03-2020 [facility] CARDIAC STRESS/REST INJECTION Patient Name: KIRILL ECHOLS STUDY: MYOCARDIAL PERFUSION STRESS TEST WITH LEXISCAN Performing facility: [facility], [address], [address], \[place] [id number] [facility] Provider: Ema Oliveira DO, [facility] PCP: Dr. Danni Andrea Supervising provider: Tejal King MD, [facility] INDICATION: Chest Pain; HISTORY: Gender: M; Age: 54 y/o ; Height: 182.88 cm; Weight: 71.4996829 kg. HTN; Chest Pain; COPD; Quit smoking in 2020 years ago. COMPARISON: No comparison. ACCESSION NUMBER(S): [id number]; [id number]; [id number] ORDERING CLINICIAN: LUKAS OLIVEIRA TECHNIQUE: ONE DAY [...] comparison. Electronically signed by: TEJAL KING MD [facility] PART 2 STRESS OR REST (N O CHARGE)on 03-03-2020 [facility] PART 2 STRESS OR REST (NO CHARGE) Patient Name: KIRILL ECHOLS STUDY: MYOCARDIAL PERFUSION STRESS TEST WITH LEXISCAN Performing facility: [facility], [address], [address], \[place] [address] [facility] Provider: Ema Oliveira DO, [facility] PCP: Dr. Danni Andrea Supervising provider: Tejal King MD, [facility] INDICATION: Chest Pain; HISTORY: Gender: M; Age: 54 y/o ; Height: 182.88 cm; Weight: 71.8575768 kg. HTN; Chest Pain; COPD; Quit smoking in 2020 years ago. COMPARISON: No comparison. ACCESSION NUMBER(S): [id number]; [id number]; [id number] ORDERING CLINICIAN: LUKAS OLIVEIRA TECHNIQUE: ONE DAY [...] comparison. Electronically signed by: TEJAL KING MD Normal [facility] No Panel Informationon 03-02 Schistocytes Rare [facility] Target cellson 03-02-2020 Target cells LM Ql (Bld) Slight [facility] Basophil percentageon 2019 Eosinophils/100 WBC (Bld) 1 % 1-3 [facility] Blood polychromasia detectio n by light microscopyon 02-24-2020 Polychromasia LM Ql (Bld) Slight [facility] Laboratory - Hematology and Cell countson 02-24-2020 Band form neutrophils/100 WBC (Bld) 13 % 0-5 [facility] Lymphocytes/100 WBC Auto (Bl d)on 02-24-2020 Lymphocytes/100 WBC (Bld) 9 % 18-42 [facility] Monocyte %on 02-24-2020 Monocytes/100 WBC (Bld) 1 % 1-3 [facility] Monocytes/100 WBC Manual cnt (Bld)on 02-24-2020 Monocytes/100 WBC (Bld) 16 % 2-11 [facility] No Panel Informationon 02-23 Dohle Bodies Moderate [facility] Poikilocytosis Slight [facility] Ovalocyte detectionon 2019 Ovalocytes LM Ql (Bld) Slight [facility] Segmented neutrophils/100 WB C Manual cnt (Bld)on 02-24-2020 Segmented neutrophils/100 WBC (Bld) 61 % 50-70 [facility] Hypochromia detectionon 01-13 Hypochromia Ql (Bld) Slight [facility] Macrocytes detectionon 01-19 Macrocytes Ql (Bld) Slight [facility] No Panel Informationon 01-19 Smudge Cells Few [facility] Red blood cell stomatocyte d etectionon 12-09-2019 Stomatocytes LM Ql (Bld) Slight [facility] Respiratory specimen 2019 no mathieu coronavirus RNA detection by probe and target amplifion 11-21-2019 SARS-CoV-2 (COVID-19) RNA DEANA+probe Ql (Resp) Not detected Not Detected [facility] Comment on above: This test was develo ped and its performance characteristicsdetermined by [employer]. This test has not beenFDA cleared or approved. This test has been authorized byFDA under an Emergency Use Authorization (EUA). This [...] (not detected) result in this assay.Performed at: [place] [address] [employer] [facility] [place], [place] [id number] Director: Antonio Chaney MD, Phone: [phone] Basophils/100 WBC Auto (Bld) on 11-18-2019 Basophils/100 WBC (Bld) 1 % 0-2 [facility] Amylaseon 04-28-2018 Amylase enzyme act/vol 130 U/L High 30-110 [facility] Comment on above: Performed By: #### C BCDIF, PT, GBCHEM, GBTSH, LIPA, MG, GBHCV, HAVIGM, HBCAB, HBSAG, RPR ####[facility] [id number] [place], [place] [id number] GGTon 04-28-2018 Gamma glutamyl transferase [Enzymatic activity/volume] in Serum or Plasma 426 U/L High 15-73 [facility] Comment on above: Performed By: #### C BCDIF, PT, GBCHEM, GBTSH, LIPA, MG, GBHCV, HAVIGM, HBCAB, HBSAG, RPR ####[facility] Clinical [id number] [place], [place] [id number] Hepatic Function Pnlon 04-28 Albumin mass conc 4.2 g/dL Normal 3.5-5.0 [facility] Comment on above: Performed By: #### C BCDIF, PT, GBCHEM, GBTSH, LIPA, MG, GBHCV, HAVIGM, HBCAB, HBSAG, RPR ####[facility] Clinical [id number] [facility], [place] [phone] Alkaline Phos 96 U/L Normal 38-125 [facility] Comment on above: Performed By: #### C BCDIF, PT, GBCHEM, GBTSH, LIPA, MG, GBHCV, HAVIGM, HBCAB, HBSAG, RPR ####[facility] Clinical [id number] [facility], [place] [phone] ALT enzyme act/vol 60 U/L Normal 21-72 [facility] Comment on above: Performed By: #### C BCDIF, PT, GBCHEM, GBTSH, LIPA, MG, GBHCV, HAVIGM, HBCAB, HBSAG, RPR ####[facility] Clinical [id number] [facility], [place] [phone] AST enzyme act/vol 65 U/L High 17-59 [facility] Comment on above: Performed By: #### C BCDIF, PT, GBCHEM, GBTSH, LIPA, MG, GBHCV, HAVIGM, HBCAB, HBSAG, RPR ####[facility] Clinical [id number] [place], [place] [phone] Bilirubin Ql (U) 0.3 mg/dL Normal 0.2-1.3 [facility] Comment on above: Performed By: #### C BCDIF, PT, GBCHEM, GBTSH, LIPA, MG, GBHCV, HAVIGM, HBCAB, HBSAG, RPR ####[facility] Clinical [id number] [facility], [place] [phone] Bilirubin.direct mass conc 0.2 mg/dL Normal 0.0-0.4 [facility] Comment on above: Performed By: #### C BCDIF, PT, GBCHEM, GBTSH, LIPA, MG, GBHCV, HAVIGM, HBCAB, HBSAG, RPR ####[facility] Clinical [id number] [facility], [place] [phone] Protein mass conc 7.3 g/dL Normal 6.2-8.2 [facility] Comment on above: Performed By: #### C BCDIF, PT, GBCHEM, GBTSH, LIPA, MG, GBHCV, HAVIGM, HBCAB, HBSAG, RPR ####[facility] Clinical [id number] [facility] [place] [phone] Lipaseon 04-28-2018 Lipase enzyme act/vol 941 U/L High 23-300 [facility] Comment on above: Performed By: #### C BCDIF, PT, GBCHEM, GBTSH, LIPA, MG, GBHCV, HAVIGM, HBCAB, HBSAG, RPR ####[facility] Clinical [id number] [facility], [place] [phone] Phenobarbitalon 04-26-2018 Phenobarbital mass conc ug/mL Low 15.0-40.0 [facility] Comment on above: Performed By: #### C BCDIF, PT, GBCHEM, GBTSH, LIPA, MG, GBHCV, HAVIGM, HBCAB, HBSAG, RPR ####[facility] Clinical [id number] [facility], [place] [phone] RPRon 04-25-2018 Reagin Ab RPR Ql (S) Nonreactive Normal Nonreactive [facility] Comment on above: Performed By: #### C BCDIF, PT, GBCHEM, GBTSH, LIPA, MG, GBHCV, HAVIGM, HBCAB, HBSAG, RPR ####[facility] Clinical [id number] [facility] [place] [phone] Urinalysison 04-25-2018 Bilirubin Negative Normal Negative [facility] Comment on above: Performed By: #### C BCDIF, PT, GBCHEM, GBTSH, LIPA, MG, GBHCV, HAVIGM, HBCAB, HBSAG, RPR ####[facility] Clinical [id number] [facility] [place] [phone] Cast SEE NOTES Normal 0 [facility] Comment on above: Result Comment: >20H yaline Cast Performed By: #### C BCDIF, PT, GBCHEM, GBTSH, LIPA, MG, GBHCV, HAVIGM, HBCAB, HBSAG, RPR ####[facility] [id number] [address], [place] [phone] Clarity Nom (U) Cloudy Critically abnormal Clear [facility] Comment on above: Performed By: #### C BCDIF, PT, GBCHEM, GBTSH, LIPA, MG, GBHCV, HAVIGM, HBCAB, HBSAG, RPR ####[facility] [id number] [address], [place] [phone] Color Nom (U) Taylor Critically abnormal Yellow [facility] Comment on above: Performed By: #### C BCDIF, PT, GBCHEM, GBTSH, LIPA, MG, GBHCV, HAVIGM, HBCAB, HBSAG, RPR ####[facility] [id number] [facility] [place] [phone] Crystals SEE NOTES Normal 0 [facility] Comment on above: Result Comment: FewA morphous Performed By: #### C BCDIF, PT, GBCHEM, GBTSH, LIPA, MG, GBHCV, HAVIGM, HBCAB, HBSAG, RPR ####[facility] [id number] [address], [place] [phone] Epithelial Cells Few Normal [facility] Comment on above: Result Comment: Squa mous Epithelial Cells Performed By: #### C BCDIF, PT, GBCHEM, GBTSH, LIPA, MG, GBHCV, HAVIGM, HBCAB, HBSAG, RPR ####[facility] Clinical [id number] [address], [place] [phone] Glucose Negative Normal Negative [facility] Comment on above: Performed By: #### C BCDIF, PT, GBCHEM, GBTSH, LIPA, MG, GBHCV, HAVIGM, HBCAB, HBSAG, RPR ####[facility] Clinical [id number] [address], [place] [phone] Hemoglobin/Blood Negative Normal Negative [facility] Comment on above: Performed By: #### C BCDIF, PT, GBCHEM, GBTSH, LIPA, MG, GBHCV, HAVIGM, HBCAB, HBSAG, RPR ####[facility] Clinical [id number] [facility], [place] [phone] INR Coag RelTime (Bld) 0-3 Normal 0-3 [facility] Comment on above: Performed By: #### C BCDIF, PT, GBCHEM, GBTSH, LIPA, MG, GBHCV, HAVIGM, HBCAB, HBSAG, RPR ####[facility] Clinical [id number] [facility], [place] [phone] Ketone Trace Critically abnormal Negative [facility] Comment on above: Performed By: #### C BCDIF, PT, GBCHEM, GBTSH, LIPA, MG, GBHCV, HAVIGM, HBCAB, HBSAG, RPR ####[facility] [id number] [facility], [phone] Leukest Negative Normal Negative [facility] Comment on above: Performed By: #### C BCDIF, PT, GBCHEM, GBTSH, LIPA, MG, GBHCV, HAVIGM, HBCAB, HBSAG, RPR ####[facility] [id number] [facility], [place] [phone] Nitrites Negative Normal Negative [facility] Comment on above: Performed By: #### C BCDIF, PT, GBCHEM, GBTSH, LIPA, MG, GBHCV, HAVIGM, HBCAB, HBSAG, RPR ####[facility] Clinical [id number] [facility], [place] [phone] pH Test strip (U) 5.0 [pH] Normal 5-7 [facility] Comment on above: Performed By: #### C BCDIF, PT, GBCHEM, GBTSH, LIPA, MG, GBHCV, HAVIGM, HBCAB, HBSAG, RPR ####[facility] [id number] [facility], [phone] Protein mass conc 100 mg/dl Critically abnormal Negative [facility] Comment on above: Performed By: #### C BCDIF, PT, GBCHEM, GBTSH, LIPA, MG, GBHCV, HAVIGM, HBCAB, HBSAG, RPR ####[facility] [id number] [facility], [place] [phone] Urine Alpesh Comment Many Normal [facility] Comment on above: Result Comment: MUCO US Performed By: #### C BCDIF, PT, GBCHEM, GBTSH, LIPA, MG, GBHCV, HAVIGM, HBCAB, HBSAG, RPR ####[facility] Clinical [id number] [facility], [place] [phone] Urine Spec Ethel 1.025 Normal 1.005-1.030 [facility] Comment on above: Performed By: #### C BCDIF, PT, GBCHEM, GBTSH, LIPA, MG, GBHCV, HAVIGM, HBCAB, HBSAG, RPR ####[facility] [id number] [facility], [place] [phone] Urobilinogen 2.0 mg/dl High 0.0-1.0 [facility] Comment on above: Performed By: #### C BCDIF, PT, GBCHEM, GBTSH, LIPA, MG, GBHCV, HAVIGM, HBCAB, HBSAG, RPR ####[facility] Clinical [id number] [facility], [place] [phone] WBC 0-5 Normal 0-5 [facility] Comment on above: Performed By: #### C BCDIF, PT, GBCHEM, GBTSH, LIPA, MG, GBHCV, HAVIGM, HBCAB, HBSAG, RPR ####[facility] Eeo17864 [facility] [place] [phone] CBCDIFon 04-24-2018 Abs Baso 0.02 k/uL Normal 0-0.2 [facility] Comment on above: Performed By: #### C BCDIF, PT, GBCHEM, GBTSH, LIPA, MG, GBHCV, HAVIGM, HBCAB, HBSAG, RPR ####[facility] Clinical [id number] [facility] [place] [phone] Abs Foster 1.23 k/uL High 0-0.8 [facility] Comment on above: Performed By: #### C BCDIF, PT, GBCHEM, GBTSH, LIPA, MG, GBHCV, HAVIGM, HBCAB, HBSAG, RPR ####[facility] Clinical [id number] [place], [place] [phone] Abs Neut 7.41 k/uL Normal 1.8-7.7 [facility] Comment on above: Performed By: #### C BCDIF, PT, GBCHEM, GBTSH, LIPA, MG, GBHCV, HAVIGM, HBCAB, HBSAG, RPR ####[facility] Clinical [id number] [place], [place] [phone] Basophils/100 WBC Auto (Bld) 0.2 % Normal 0-1 [facility] Comment on above: Performed By: #### C BCDIF, PT, GBCHEM, GBTSH, LIPA, MG, GBHCV, HAVIGM, HBCAB, HBSAG, RPR ####[facility] Clinical [id number] [place], [place] [phone] Eosinophils Auto #/vol (Bld) 0.38 10*3/uL Normal 0-0.4 [facility] Comment on above: Performed By: #### C BCDIF, PT, GBCHEM, GBTSH, LIPA, MG, GBHCV, HAVIGM, HBCAB, HBSAG, RPR ####[facility] Clinical [id number] [place], [place] [phone] Eosinophils/100 WBC Auto (Bld) 3.3 % Normal 0-4 [facility] Comment on above: Performed By: #### C BCDIF, PT, GBCHEM, GBTSH, LIPA, MG, GBHCV, HAVIGM, HBCAB, HBSAG, RPR ####[facility] [id number] [place], [place] [phone] Erythrocyte distribution width Auto Ratio (RBC) 14.6 % High 11.5-14.5 [facility] Comment on above: Performed By: #### C BCDIF, PT, GBCHEM, GBTSH, LIPA, MG, GBHCV, HAVIGM, HBCAB, HBSAG, RPR ####[facility] Ntq07072 [place], [place] [phone] Hematocrit Auto Volume Fraction (Bld) 46.2 % Normal 41.0-53.0 [facility] Comment on above: Performed By: #### C BCDIF, PT, GBCHEM, GBTSH, LIPA, MG, GBHCV, HAVIGM, HBCAB, HBSAG, RPR ####[facility] [id number] [place], [place] [phone] Hemoglobin mass conc (Bld) 16.2 g/dL Normal 13.5-17.5 [facility] Comment on above: Performed By: #### C BCDIF, PT, GBCHEM, GBTSH, LIPA, MG, GBHCV, HAVIGM, HBCAB, HBSAG, RPR ####[facility] [id number] [place], [place] [phone] Immature Gran 0.30 % Normal 0-1.9 [facility] Comment on above: Performed By: #### C BCDIF, PT, GBCHEM, GBTSH, LIPA, MG, GBHCV, HAVIGM, HBCAB, HBSAG, RPR ####[facility] Emk24175 [place], [place] [phone] Lymphocytes Auto #/vol (Bld) 2.56 10*3/uL Normal 1.0-4.0 [facility] Comment on above: Performed By: #### C BCDIF, PT, GBCHEM, GBTSH, LIPA, MG, GBHCV, HAVIGM, HBCAB, HBSAG, RPR ####[facility] Clinical [id number] [facility], [place] [phone] Lymphocytes/100 WBC Auto (Bld) 22.0 % Normal 22-44 [facility] Comment on above: Performed By: #### C BCDIF, PT, GBCHEM, GBTSH, LIPA, MG, GBHCV, HAVIGM, HBCAB, HBSAG, RPR ####[facility] Clinical [id number] [facility], [place] [phone] MCH Auto Entitic mass (RBC) 31.6 pG Normal 26-34 [facility] Comment on above: Performed By: #### C BCDIF, PT, GBCHEM, GBTSH, LIPA, MG, GBHCV, HAVIGM, HBCAB, HBSAG, RPR ####[facility] [id number] [facility], [place] [phone] MCHC Auto mass conc (RBC) 35.1 g/dL Normal 31-37 [facility] Comment on above: Performed By: #### C BCDIF, PT, GBCHEM, GBTSH, LIPA, MG, GBHCV, HAVIGM, HBCAB, HBSAG, RPR ####[facility] [id number] [place], [place] [phone] MCV Auto Entitic volume (RBC) 90.1 fL Normal 80-100 [facility] Comment on above: Performed By: #### C BCDIF, PT, GBCHEM, GBTSH, LIPA, MG, GBHCV, HAVIGM, HBCAB, HBSAG, RPR ####[facility] Clinical [id number] [facility], [place] [phone] Monocytes/100 WBC Auto (Bld) 10.6 % Normal 4-12 [facility] Comment on above: Performed By: #### C BCDIF, PT, GBCHEM, GBTSH, LIPA, MG, GBHCV, HAVIGM, HBCAB, HBSAG, RPR ####[facility] Clinical Pua13799 [facility], [place] [phone] Neutrophils/100 WBC Auto (Bld) 63.6 % Normal 40-70 [facility] Comment on above: Performed By: #### C BCDIF, PT, GBCHEM, GBTSH, LIPA, MG, GBHCV, HAVIGM, HBCAB, HBSAG, RPR ####[facility] Clinical [id number] [facility] [phone] NRBCs 0 /100 WBC Normal 0-0.9 [facility] Comment on above: Performed By: #### C BCDIF, PT, GBCHEM, GBTSH, LIPA, MG, GBHCV, HAVIGM, HBCAB, HBSAG, RPR ####[facility] Clinical [id number] [facility] [place] [phone] Platelets Auto #/vol (Bld) 188 10*3/uL Normal 150-450 [facility] Comment on above: Performed By: #### C BCDIF, PT, GBCHEM, GBTSH, LIPA, MG, GBHCV, HAVIGM, HBCAB, HBSAG, RPR ####[facility] Clinical [id number] [facility] [place] [phone] RBC Auto #/vol (Bld) 5.13 10*6/uL Normal 4.50-5.90 [facility] Comment on above: Performed By: #### C BCDIF, PT, GBCHEM, GBTSH, LIPA, MG, GBHCV, HAVIGM, HBCAB, HBSAG, RPR ####[facility] Clinical [id number] [facility], [place] [phone] WBC Auto #/vol (Bld) 11.63 10*3/uL High 4.5-11.0 [facility] Comment on above: Performed By: #### C BCDIF, PT, GBCHEM, GBTSH, LIPA, MG, GBHCV, HAVIGM, HBCAB, HBSAG, RPR ####[facility] Clinical [id number] [address], [place] [phone] [facility] Profdanita 2017 Albumin mass conc 5.0 g/dL Normal 3.5-5.0 [facility] Comment on above: Performed By: #### C BCDIF, PT, GBCHEM, GBTSH, LIPA, MG, GBHCV, HAVIGM, HBCAB, HBSAG, RPR ####[facility] Clinical [id number] [place], [place] [phone] Alkaline Phos 137 U/L High 38-125 [facility] Comment on above: Performed By: #### C BCDIF, PT, GBCHEM, GBTSH, LIPA, MG, GBHCV, HAVIGM, HBCAB, HBSAG, RPR ####[facility] Clinical [id number] [place], [place] [phone] ALT enzyme act/vol 54 U/L Normal 21-72 [facility] Comment on above: Performed By: #### C BCDIF, PT, GBCHEM, GBTSH, LIPA, MG, GBHCV, HAVIGM, HBCAB, HBSAG, RPR ####[facility] Clinical [id number] [place], [place] [phone] Amylase enzyme act/vol 156 U/L High 30-110 [facility] Comment on above: Performed By: #### C BCDIF, PT, GBCHEM, GBTSH, LIPA, MG, GBHCV, HAVIGM, HBCAB, HBSAG, RPR ####[facility] Clinical [id number] [place], [place] [phone] Anion gap 3 molar conc 18 mmol/L High 0-15 [facility] Comment on above: Performed By: #### C BCDIF, PT, GBCHEM, GBTSH, LIPA, MG, GBHCV, HAVIGM, HBCAB, HBSAG, RPR ####[facility] Clinical [id number] [place], [place] [phone] AST enzyme act/vol 102 U/L High 17-59 [facility] Comment on above: Performed By: #### C BCDIF, PT, GBCHEM, GBTSH, LIPA, MG, GBHCV, HAVIGM, HBCAB, HBSAG, RPR ####[facility] Clinical [id number] [facility] [place] [phone] Bilirubin Ql (U) 1.5 mg/dL High 0.2-1.3 [facility] Comment on above: Performed By: #### C BCDIF, PT, GBCHEM, GBTSH, LIPA, MG, GBHCV, HAVIGM, HBCAB, HBSAG, RPR ####[facility] Clinical [id number] [facility] [place] [phone] Calcium mass conc 10.0 mg/dL Normal 8.4-10.2 [facility] Comment on above: Performed By: #### C BCDIF, PT, GBCHEM, GBTSH, LIPA, MG, GBHCV, HAVIGM, HBCAB, HBSAG, RPR ####[facility] Clinical [id number] [facility], [place] [phone] Chloride molar conc 91 mmol/L Low 98-107 [facility] Comment on above: Performed By: #### C BCDIF, PT, GBCHEM, GBTSH, LIPA, MG, GBHCV, HAVIGM, HBCAB, HBSAG, RPR ####[facility] Clinical [id number] [facility] [place] [phone] Cholesterol mass conc 155 mg/dL Normal 100-199 [facility] Comment on above: Performed By: #### C BCDIF, PT, GBCHEM, GBTSH, LIPA, MG, GBHCV, HAVIGM, HBCAB, HBSAG, RPR ####[facility] Clinical [id number] [facility] [place] [phone] CO2 molar conc 27 mmol/L Normal 22-30 [facility] Comment on above: Performed By: #### C BCDIF, PT, GBCHEM, GBTSH, LIPA, MG, GBHCV, HAVIGM, HBCAB, HBSAG, RPR ####[facility] Clinical [id number] [facility] [place] [phone] Creatinine mass conc 1.47 mg/dL High 0.66-1.25 [facility] Comment on above: Performed By: #### C BCDIF, PT, GBCHEM, GBTSH, LIPA, MG, GBHCV, HAVIGM, HBCAB, HBSAG, RPR ####[facility] Clinical [id number] [place], [place] [phone] eGFR Amer >60 Normal >60 [facility] Comment on above: Result Comment: MDRD calculation used for eGFR results. Performed By: #### C BCDIF, PT, GBCHEM, GBTSH, LIPA, MG, GBHCV, HAVIGM, HBCAB, HBSAG, RPR ####[facility] Clinical [id number] [place], [place] [phone] eGFR non Am 53 mL/min/1.73 2 Low >60 [facility] Comment on above: Performed By: #### C BCDIF, PT, GBCHEM, GBTSH, LIPA, MG, GBHCV, HAVIGM, HBCAB, HBSAG, RPR ####[facility] Clinical [id number] [place], [place] [phone] Gamma glutamyl transferase [Enzymatic activity/volume] in Serum or Plasma 602 U/L High 15-73 [facility] Comment on above: Performed By: #### C BCDIF, PT, GBCHEM, GBTSH, LIPA, MG, GBHCV, HAVIGM, HBCAB, HBSAG, RPR ####[facility] Clinical Akh72554 [place], [place] [phone] Glucose mass conc 98 mg/dL Normal 74-106 [facility] Comment on above: Performed By: #### C BCDIF, PT, GBCHEM, GBTSH, LIPA, MG, GBHCV, HAVIGM, HBCAB, HBSAG, RPR ####[facility] Clinical Kad91514 [place], [place] [phone] LDH 550 U/L Normal 318-618 [facility] Comment on above: Performed By: #### C BCDIF, PT, GBCHEM, GBTSH, LIPA, MG, GBHCV, HAVIGM, HBCAB, HBSAG, RPR ####[facility] Clinical [id number] [place], [place] [phone] Phosphate mass conc 3.9 mg/dL Normal 2.5-4.5 [facility] Comment on above: Performed By: #### C BCDIF, PT, GBCHEM, GBTSH, LIPA, MG, GBHCV, HAVIGM, HBCAB, HBSAG, RPR ####[facility] Clinical [id number] [place], [place] [phone] Potassium molar conc 3.7 mmol/L Normal 3.5-5.1 [facility] Comment on above: Performed By: #### C BCDIF, PT, GBCHEM, GBTSH, LIPA, MG, GBHCV, HAVIGM, HBCAB, HBSAG, RPR ####[facility] Clinical Ueg34729 [place], [place] [phone] Protein mass conc 8.7 g/dL High 6.2-8.2 [facility] Comment on above: Performed By: #### C BCDIF, PT, GBCHEM, GBTSH, LIPA, MG, GBHCV, HAVIGM, HBCAB, HBSAG, RPR ####[facility] Clinical [id number] [place], [place] [phone] Sodium molar conc 132 mmol/L Low 137-145 [facility] Comment on above: Performed By: #### C BCDIF, PT, GBCHEM, GBTSH, LIPA, MG, GBHCV, HAVIGM, HBCAB, HBSAG, RPR ####[facility] Clinical [id number] [place], [place] [phone] Triglyceride mass conc 160 mg/dL High 35-150 [facility] Comment on above: Performed By: #### C BCDIF, PT, GBCHEM, GBTSH, LIPA, MG, GBHCV, HAVIGM, HBCAB, HBSAG, RPR ####[facility] Clinical [id number] [place], [place] [phone] Urate mass conc 7.2 mg/dL Normal 3.5-8.5 [facility] Comment on above: Performed By: #### C BCDIF, PT, GBCHEM, GBTSH, LIPA, MG, GBHCV, HAVIGM, HBCAB, HBSAG, RPR ####[facility] Clinical [id number] [facility] [place] [phone] Urea nitrogen mass conc 15 mg/dL Normal 9-20 [facility] Comment on above: Performed By: #### C BCDIF, PT, GBCHEM, GBTSH, LIPA, MG, GBHCV, HAVIGM, HBCAB, HBSAG, RPR ####[facility] Clinical [id number] [facility], [place], [place] [phone] [facility] Hep C Abon 018 [facility] Hep C Ab Nonreactive Normal Nonreactive [facility] Comment on above: Performed By: #### C BCDIF, PT, GBCHEM, GBTSH, LIPA, MG, GBHCV, HAVIGM, HBCAB, HBSAG, RPR ####[facility] Clinical [id number] [facility] [place] [phone] [facility] TSHon 04-24-2018 Thyrotropin Qn 3.280 uU/mL Normal 0.465-4.680 [facility] Comment on above: Performed By: #### C BCDIF, PT, GBCHEM, GBTSH, LIPA, MG, GBHCV, HAVIGM, HBCAB, HBSAG, RPR ####[facility] Iou54528 [facility], [place], [place] [phone] Hep A IgM Antibodyon 018 Hep A IgM Antibody Nonreactive Normal Nonreactive [facility] Comment on above: Performed By: #### C BCDIF, PT, GBCHEM, GBTSH, LIPA, MG, GBHCV, HAVIGM, HBCAB, HBSAG, RPR ####[facility] Clinical [id number] [facility] [place] [phone] Hep B Core Total Abon 2017 Hep B Core Total Ab Nonreactive Normal Nonreactive [facility] Comment on above: Performed By: #### C BCDIF, PT, GBCHEM, GBTSH, LIPA, MG, GBHCV, HAVIGM, HBCAB, HBSAG, RPR ####[facility] Clinical [id number] [facility], [place] [phone] Hep B Surf Antigenon 018 Hep B Surf Antigen Nonreactive Normal Nonreactive [facility] Comment on above: Performed By: #### C BCDIF, PT, GBCHEM, GBTSH, LIPA, MG, GBHCV, HAVIGM, HBCAB, HBSAG, RPR ####[facility] Clinical [id number] [place], [place] [phone] Lipaseon 04-24-2018 Lipase enzyme act/vol 1540 U/L High 23-300 [facility] Comment on above: Performed By: #### C BCDIF, PT, GBCHEM, GBTSH, LIPA, MG, GBHCV, HAVIGM, HBCAB, HBSAG, RPR ####[facility] Clinical [id number] [place], [place] [phone] Magnesiumon 04-24-2018 Magnesium mass conc 2.0 mg/dL Normal 1.3-2.3 [facility] Comment on above: Performed By: #### C BCDIF, PT, GBCHEM, GBTSH, LIPA, MG, GBHCV, HAVIGM, HBCAB, HBSAG, RPR ####[facility] [id number] [place], [place] [phone] Protimeon 04-24-2018 INR Coag RelTime (Bld) 1.0 {INR} Normal 0.6-1.1 [facility] Comment on above: Result Comment: The [...] to 3.5 for older generation mechanical heart valves.Rosmery, et al. Chest 2004: 126:204S to 233S. Performed By: #### C BCDIF, PT, GBCHEM, GBTSH, LIPA, MG, GBHCV, HAVIGM, HBCAB, HBSAG, RPR ####[facility] [id number] [place], [place] [phone] PT Sec 12.3 sec Normal 11.8-14.1 [facility] Comment on above: Performed By: #### C BCDIF, PT, GBCHEM, GBTSH, LIPA, MG, GBHCV, HAVIGM, HBCAB, HBSAG, RPR ####[facility] [id number] [place], [place] [phone] Coding Summary.on 10-29-2017 Coding Summary. CODING DATE: 018 FINAL [facility] DSC STATUS: Home (Routine DC) PAYOR: [employer] Insurance APC DESCRIPTION 5311 Level 1 Lower GI Procedures ADMIT DX: REASON FOR VISIT DX: K62.5 Hemorrhage of anus and rectum FINAL DX: PRINCIPAL: K62.5 Hemorrhage of anus and rectum SECONDARY: K64.8 Other hemorrhoids R19.7 Diarrhea, unspecified R63.4 Abnormal weight loss F10.10 Alcohol abuse, uncomplicated Z87.19 Personal history of other diseases of the digestive system Z79.82 manager intermediate (current) use of aspirin F17.210 Nicotine dependence, cigarettes, uncomplicated PYMT PROC APC STAT DESCRIPTION DOCTOR NAME DATE 59960 7501 T Sigmoidoscopy, flexible; Nilesh Schulte MD 10/24/2017 diagnostic, including collection of specimen(s) by brushing or washing, when performed (separate procedure) [id number] Anesthesia for lower Nilesh Schulte MD 10/24/2017 intestinal endoscopic procedures, endoscope introduced distal to duodenum; not otherwise specified NOTE: The code number assigned matches the documented diagnosis and / or procedure in the patient's chart. However, the narrative phrase printed from the coding software may appear abbreviated, or result in slightly different terminology. Coded By: Joyce Barney Date Saved: 10/29/2017 09:43 am Normal [facility] Main OR Intraoperative Recor don 10-25-2017 Main OR Intraoperative Record IntraOp Document Type FT Summary Primary Physician: Nilesh Schulte MD Finalized Date/Time: 10/25/17 11:57:16 Pt. Name: KIRILL ECHOLS/Sex: 1965 Male Med Rec #: [id number] Physician: Nilesh Schulte MD Financial #: [id number] Pt. Type: O Room/Bed: / Admit/Disch: 10/24/17 [...] Performed Scrub - Other Surgeon - Primary Mechanical Inspector - Primary Time In 10/24/17 13:16:00 10/24/17 13:16:00 10/24/17 13:16:00 Time Out 10/24/17 13:32:00 10/24/17 13:32:00 10/24/17 13:32:00 Procedure SIGMOIDOSCOPY(.) SIGMOIDOSCOPY(.) SIGMOIDOSCOPY(.) Comments help in room Last Modified By: Zhao RN, Dana Churchill RN, Dana Suarez RN 10/24/17 13:33:50 10/24/17 13:33:50 10/24/17 13:33:50 Entry 4 Entry 5 Case Attendee Lisset Chambers CST, Karen Role Performed Anesthesiologist Scrub - Primary Creative Services Manager Time In 10/24/17 13:16:00 10/24/17 13:16:00 Time [...] No Time Out Stacey Hayes Salam Given Participants MD, Maher, Zhao GIBSON, Leno Cortez Carly C Time Out Complete [...] and tissue Entry 1 Skin Integrity Intact, [place], Warm, and Skin Abnormality No Dry Outcomes [...] RN Patient Status Stable Skin. Condition Intact, [place], Warm, and Dry Airway Maintenance Oxygen in Use? No Airway Device N/A Outcomes Met? Yes Last Modified By: Dana Churchill RN 10/24/17 10:56:46 Post-Care Text: The patient is free from signs and symptoms of injury related to transfer/transport General Comments: REPORT GIVEN TO BIOMATHEMATICIAN/ AW vehicle inspector Administration FT Pre-Care Text: Verifies allergies, administers prescribed medications and solutions, administers prescribed antibiotic therapy and immunizing agents as ordered, evaluates response to medications Administers prescribed medications and solutions Entry 1 Expiration Date Yes Outcomes Met? Yes Verified Last Modified By: Dana Churchill RN 10/24/17 10:56:32 Post-Care Text: The patient received appropriate medication(s) safely administered during the perioperative period For [facility] please see scanned medication reconcilliation form for medications used at the field during the procedure. Case Comments Finalized By: Adilia Bhatia CST Document Signatures Signed By: Dana Churchill RN 10/24/17 13:34 Dana Churchill RN 10/24/17 13:33 Adilia Bhatia CST 10/25/17 11:57 Normal [facility] History and Physicalon 10-24 History and Physical Date: 10/10/2017 2:4 5 PMPatient Name: Kirill Cao #: [id number]: MaleDOB (age): 1965 (52)Provider: Quan Gordon Physician: Mundo Vásquez [place] [address] (phone) (phone) (fax)Chief Complaint: Dr brown for Abdominal pain and pancreatitisHistory of Present Illness:52 years old -[place] male, was last seen in December 2015 [...] vomiting, weight loss.Printed on 10/19/2017 Kirill Echols, [id number], 1965 Page 1 of 4Printed on 10/19/2017 Kirill Echols, [id number], 1965Genitourinary: Denies dark urine, decrease in urine flow, dysuria, frequent urinary infections, frequent urination,hematuria, impotence, nocturia, urethral discharge or incontinence, sexual difficulty, sexual transmitteddiseases, kidney disease, kidney stones, pain with urination.Respiratory: Denies asthma, cough, dyspnea, excessive sputum, hemoptisis, shortness of breath with exercise,wheezing, coughing up blood.Vital Signs:BP(mmHg)Pulse(ppm) Rhythm Weight (lbs/oz) Height (ft/in) BMI Resp/min Gvpo655/79 91 Regular 145 / 6 / 1 19.13 12 98.3 (F)Physical Exam:Constitutional:Appe arance: well [...] insufficiency, we will get old records from [place] to evaluatefor recent computed tomography scan, consider repeating EGD and colonoscopy if still negativeAlcohol abuse, advised to stop alcohol completelyPlan: Flexible Sigmoidoscopy will be performed at [facility].Labs Ordered: CBCLabs Ordered: Chem 6 (BUN, Creatinine, LYTES)Labs Ordered: Hepatic Panel (ALP, T/Dbil, Alb, AST, ALT, TP A/G Ratio)Stool Ordered: Fecal ElastaseObtain all old recordsRisk & Medical Necessity: Diagnosis and management options are Minimal. The amount of data reviewed and/orordered is Minimal/None. The level of risk is Minimal.Printed on 10/19/2017 Kirill Onesimo 10145, 1965 Page 2 of 4Printed on 10/19/2017 Kirill Echols [id number], 1965Nilesh Schulte MD Kirill Onesimo [address]4868, 1965 Page 3 of 4Printed on 10/19/2017 iKrill Echols [id number], 1965Printed on 10/19/2017 Kirill Echols [address]5044, 1965 Page 4 of 4Printed on 10/19/2017 Kirill Echols [id number], 1965no change Normal [facility] Comment on above: Result Comment: Elec tronically Signed By: Nilesh Schulte MD\.br\Date and Time Signed: 10/24/17 13:25 EDT Inpatient Patient Summaryon 10-24-2017 [facility] INFORMATION Name: KIRILL ECHOLS PHYSICIANS Admitting Physician: [place] Schulte MD Physician: Nilesh Schulte MD PCP: Lucie ANDREA MD Diagnosis: Internal hemorrhoids Comment: PATIENT EDUCATION INFORMATIONInstructions: Flexible Sigmoidoscopy, Care AfterMedication Leaflets:Follow up:With: Address: When: Nilesh Schulte [facility], [address] [place] [address] Business (1) Comments: Keep scheduled appointment Call for any problems. Call for severe abdominal pain MEDICATION LISTComment: Normal Dinesh [facility] Main OR PACU I Recordon 10-12 Main OR PACU I Record PACU Phase I Docum ent Type FT Summary Primary Physician: Nilesh Schulte MD Finalized Date/Time: 10/24/17 14:10:53 Pt. Name: KIRILL ECHOLS/Sex: 1965 Male Med Rec #: [id number] Physician: Nilesh Schulte MD Financial #: [id number] Pt. Type: O Room/Bed: / Admit/Disch: 10/24/17 [...] I Outcomes Met? Yes Last Modified By: Cherry Hopkins RN 10/24/17 14:10:25 Post-Care Text: The patient demonstrates [...] By: Cherry Hopkins RN 10/24/17 14:10 Normal [facility] Main OR Preoperative Recordo n 10-24-2017 Main OR Preoperative Record Holding Area Document Type FT Summary Primary Physician: Nilesh Schulte MD Finalized Date/Time: 10/24/17 12:22:15 Pt. Name: KIRILL ECHOLS/Sex: 1965 Male Med Rec #: [id number] Physician: Nilesh Schulte MD Financial #: [id number] Pt. Type: O Room/Bed: / Admit/Disch: 10/24/17 [...] of Pain: Yes Comment: Pain Comment: llq 3/10 Operative Site n/a Marking: Availability Equipment Verified: [...] By: Nikky David RN 10/24/17 12:22 Normal [facility] Patient Education - Texton 0 10-24-2017 [...] had a biopsy.HOME CARE INSTRUCTIONS? Only take [id number]-[id number] or prescription medicines for pain, fever, or [...] Released: 05/05/2014 Document Reviewed: 05/05/2014ExitCare? Patient Information ?2014 meevl. This information is not intended to replace advice given to you by your health care provider. Make sure you discuss any questions you have with your health care provider. Normal [facility] Progress Note-Physicianon Progress Note-Physician Patient: [...] 13:55) 10 (OCT 24 12:22) 16 (OCT 24 13:35)SBP 131 (OCT 24 13:55) 108 (OCT 24 13:33) 143 (OCT 24 13:17)DBP H 94 (OCT 24 13:55) 74 (OCT 13 13:35) H 105 (OCT 24 13:50)SpO2 98 (OCT 24 13:55) 98 (OCT 24 12:22) 100 (OCT 24 13:20) Pain assessment: Pain Assessment 10/24/2017 13:55 [...] be discharged from PACU when criteria met. [facility] Comment on above: Result Comment: Elec [...] 37.0 (OCT 24 12:22) 37.0 (OCT 24 12:)Heart Rate 78 (OCT 24 12:22) 78 (OCT 24 12:22) 78 (OCT 24 12:22)Resp Rate 10 (OCT 24:) 10 (OCT 24 12:) 10 (OCT 24 12:)SBP 131 (OCT 24 12:) 131 (OCT 24 12:22) 131 (OCT 24 12:22)DBP 86 (OCT 24) 86 (OCT 24:) 86 (OCT 24 12:)SpO2 98 (OCT 24:22) 98 (OCT 24 12:22) 98 (OCT 24:) Measurements from flowsheet : Measurements 10/24/2017 12:22 EDT Height/Length Measured 185.42 cm Body Mass Index Measured 19.14 kg/m2 Weight Measured 65.8 kg Airway: Mallampati classification: Normal oral/pharyngeal anatomy. Respiratory: Respirations are non-labored. Cardiovascular: normal peripheral perfusion. Neurologic: Alert. Review / Management Results review: No qualifying data available. Condition: Stable. Plan [place] [employer]esthesiologists (ASA) physical status classification: Class II. Anesthetic Preoperative Plan Anesthesia: General. , Monitored anesthesia care. Anesthetic plan, risks, benefits, and alternatives discussed with the patient and/or family. Patient verbalized understanding. Risks, benefits, alternatives discussed. Questions answered. . Normal [facility] Comment on above: Result Comment: Elec tronically Signed By: Cuba Harrington DO\Date and Time Signed: 10/24/17 12:38 EDT Vital Signs Date Time Vital Sign Value Performing Clinician Facility 06-29-2023 10:54-0500 Body temperature 97.9 [degF] MD Rylan Andrea Work Phone: [facility] 06-29-2023 10:54-0500 Body weight 69.85 kg MD Rylan Andrea Work Phone: [facility] 06-29-2023 10:54-0500 Diastolic blood pressure 88 mm[Hg] MD Rylan Andrea Work Phone: [facility] 06-29-2023 10:54-0500 Heart rate 88 /min MD Rylan Andrea Work Phone: [facility] 06-29-2023 10:54-0500 Respiratory rate 20 /min MD Rylan Andrea Work Phone: [facility] 06-29-2023 10:54-0500 SaO2% (BldA) [Mass fraction] 97 % MD Rylan Andrea Work Phone: [facility] 06-29-2023 10:54-0500 Systolic blood pressure 140 mm[Hg] MD Rylan Andrea Work Phone: [facility] 12-25-2022 11:05-0400 Body temperature 97.7 [degF] MD Rylan Andrea Work Phone: [facility] 12-25-2022 11:05-0400 Body weight 66.95 kg MD Rylan Andrea Work Phone: [facility] 12-25-2022 11:05-0400 Diastolic blood pressure 85 mm[Hg] MD Rylan Andrea Work Phone: [facility] 12-25-2022 11:05-0400 Heart rate 94 /min MD Rylan Andrea Work Phone: [facility] 12-25-2022 11:05-0400 Respiratory rate 18 /min MD Rylan Andrea Work Phone: [facility] 12-25-2022 11:05-0400 SaO2% (BldA) [Mass fraction] 97 % MD Rylan Andrea Work Phone: [facility] 12-25-2022 11:05-0400 Systolic blood pressure 136 mm[Hg] MD Rylan Andrea Work Phone: [facility] 11-01-2022 10:41-0400 Body temperature 97.6 [degF] MD Rylan Andrea Work Phone: [facility] 11-01-2022 10:41-0400 Body weight 68.26 kg MD Rylan Andrea Work Phone: [facility] 11-01-2022 10:41-0400 Diastolic blood pressure 82 mm[Hg] MD Rylan Andrea Work Phone: [facility] 11-01-2022 10:41-0400 Heart rate 103 /min MD Rylan Andrea Work Phone: [facility] 11-01-2022 10:41-0400 Respiratory rate 18 /min MD Rylan Andrea Work Phone: [facility] 11-01-2022 10:41-0400 SaO2% (BldA) [Mass fraction] 99 % MD Rylan Andrea Work Phone: [facility] 11-01-2022 10:41-0400 Systolic blood pressure 121 mm[Hg] MD Rylan Andrea Work Phone: [facility] 10-26-2022 12:05-0400 Body height 182.88 cm MD Rylan Andrea Work Phone: [facility] 10-26-2022 12:05-0400 Body temperature 97.6 [degF] MD Rylan Andrea Work Phone: [facility] 10-26-2022 12:05-0400 Body weight 69 kg MD Rylan Andrea Work Phone: [facility] 10-26-2022 12:05-0400 Diastolic blood pressure 77 mm[Hg] MD Rylan Andrea Work Phone: [facility] 10-26-2022 12:05-0400 Heart rate 100 /min MD Rylan Andrea Work Phone: [facility] 10-26-2022 12:05-0400 Respiratory rate 20 /min MD Rylan Andrea Work Phone: [facility] 10-26-2022 12:05-0400 SaO2% (BldA) [Mass fraction] 98 % MD Rylan Andrea Work Phone: [facility] 10-26-2022 12:05-0400 Systolic blood pressure 120 mm[Hg] MD Rylan Andrea Work Phone: [facility] 09-19-2022 09:33-0400 Body weight 70.39 kg MD Rylan Andrea Work Phone: [facility] 09-19-2022 09:33-0400 Diastolic blood pressure 85 mm[Hg] MD Rylan Andrea Work Phone: [facility] 09-19-2022 09:33-0400 Heart rate 85 /min MD Rylan Andrea Work Phone: [facility] 09-19-2022 09:33-0400 Respiratory rate 20 /min MD Rylan Andrea Work Phone: [facility] 09-19-2022 09:33-0400 SaO2% (BldA) [Mass fraction] 97 % MD Rylan Andrea Work Phone: [facility] 09-19-2022 09:33-0400 Systolic blood pressure 128 mm[Hg] MD Rylan Andrea Work Phone: [facility] 09-04-2022 11:26-0400 Body temperature 98.6 [degF] MD Rylan Andrea Work Phone: [facility] 06-22-2022 13:07-0500 Body height 182.88 cm MD Rylan Andrea Work Phone: [facility] 06-22-2022 13:07-0500 Body temperature 98 [degF] MD Rylan Andrea Work Phone: [facility] 06-22-2022 13:07-0500 Body weight 73.2 kg MD Rylan Adnrea Work Phone: [facility] 06-22-2022 13:07-0500 Diastolic blood pressure 88 mm[Hg] MD Rylan Andrea Work Phone: [facility] 06-22-2022 13:07-0500 Heart rate 112 /min MD Rylan Andrea Work Phone: [facility] 06-22-2022 13:07-0500 Respiratory rate 20 /min MD Rylan Andrea Work Phone: [facility] 06-22-2022 13:07-0500 SaO2% (BldA) [Mass fraction] 99 % MD Rylan Andrea Work Phone: [facility] 06-22-2022 13:07-0500 Systolic blood pressure 137 mm[Hg] MD Rylan Andrea Work Phone: [facility] 06-17-2022 12:00-0500 Body temperature 98.1 [degF] MD Rylan Andrea Work Phone: [facility] 06-17-2022 12:00-0500 Diastolic blood pressure 91 mm[Hg] MD Rylan Andrea Work Phone: [facility] 06-17-2022 12:00-0500 Heart rate 94 /min MD Rylan Andrea Work Phone: [facility] 06-17-2022 12:00-0500 Respiratory rate 20 /min MD Rylan Andrea Work Phone: [facility] 06-17-2022 12:00-0500 SaO2% (BldA) [Mass fraction] 97 % MD Rylan Andrea Work Phone: [facility] 06-17-2022 12:00-0500 Systolic blood pressure 142 mm[Hg] MD Rylan Andrea Work Phone: [facility] 06-16-2022 09:51-0500 Body height 182.88 cm MD Rylan Andrea Work Phone: [facility] 06-16-2022 09:51-0500 Body mass index (BMI) [Ratio] 20.2 kg/m2 MD Rylan Andrea Work Phone: [facility] 06-16-2022 09:51-0500 Body weight 67.9 kg MD Rylan Andrea Work Phone: [facility] 06-15-2022 12:00-0500 Body height 185.42 cm Rachid Chase Other [employer] Other 06-15-2022 12:00-0500 Body mass index (BMI) [Ratio] 19.63 kg/m2 Rachid Blandban Other [employer] Other 06-15-2022 12:00-0500 Body temperature 97 [degF] Rachid Blandban Other [employer] Other 06-15-2022 12:00-0500 Body weight 67.5 kg Rachid Blandban Other [employer] Other 06-15-2022 12:00-0500 Diastolic blood pressure 82 mm[Hg] Celsoal Edwinaban Other [employer] Other 06-15-2022 12:00-0500 Respiratory rate 20 /min Rachid Blandban Other [employer] Other 06-15-2022 12:00-0500 SaO2% (BldA) [Mass fraction] 98 % Rachid Blandban Other [employer] Other 06-15-2022 12:00-0500 Systolic blood pressure 114 mm[Hg] Kamal Chaban Other [employer] Other 05-31-2022 15:30-0500 Body height 185.42 cm Rachid Chase Other [employer] Other 05-31-2022 15:30-0500 Body mass index (BMI) [Ratio] 19.92 kg/m2 Rachid Blandban Other [employer] Other 05-31-2022 15:30-0500 Body temperature 97.6 [degF] Rachid Blandban Other [employer] Other 05-31-2022 15:30-0500 Body weight 68.49 kg Rachid Chase Other [employer] Other 05-31-2022 15:30-0500 Diastolic blood pressure 80 mm[Hg] Rachid Blandban Other [employer] Other 05-31-2022 15:30-0500 Respiratory rate 20 /min Rachid Blandban Other [employer] Other 05-31-2022 15:30-0500 SaO2% (BldA) [Mass fraction] 98 % Rachid Chase Other [employer] Other 05-31-2022 15:30-0500 Systolic blood pressure 122 mm[Hg] Rachid Blandban Other [employer] Other 04-21-2022 09:50-0500 Diastolic blood pressure 74 mm[Hg] MD Rylan Andrea Work Phone: [facility] 04-21-2022 09:50-0500 Heart rate 80 /min MD Rylan Andrea Work Phone: [facility] 04-21-2022 09:50-0500 Respiratory rate 18 /min MD Rylan Andrea Work Phone: [facility] 04-21-2022 09:50-0500 SaO2% (BldA) [Mass fraction] 99 % MD Rylan Andrea Work Phone: [facility] 04-21-2022 09:50-0500 Systolic blood pressure 111 mm[Hg] MD Rylan Andrea Work Phone: [facility] 04-21-2022 08:21-0500 Body height 182.88 cm MD Rylan Andrea Work Phone: [facility] 04-21-2022 08:21-0500 Body weight 70.3 kg MD Rylan Andrea Work Phone: [facility] 04-18-2022 13:59-0500 Diastolic blood pressure 82 mm[Hg] MD Rylan Andrea Work Phone: [facility] 04-18-2022 13:59-0500 Heart rate 99 /min MD Rylan Andrea Work Phone: [facility] 04-18-2022 13:59-0500 Respiratory rate 20 /min MD Rylan Andrea Work Phone: [facility] 04-18-2022 13:59-0500 SaO2% (BldA) [Mass fraction] 99 % MD Rylan Andrea Work Phone: [facility] 04-18-2022 13:59-0500 Systolic blood pressure 117 mm[Hg] MD Rylan Andrea Work Phone: [facility] 04-18-2022 12:41-0500 Body height 185.42 cm MD Rylan Andrea Work Phone: [facility] 04-18-2022 12:41-0500 Body weight 72.12 kg MD Rylan Andrea Work Phone: [facility] 04-14-2022 11:23-0500 Body temperature 98.3 [degF] MD Rylan Andrea Work Phone: [facility] 04-14-2022 11:23-0500 Body weight 70.3 kg MD Rylan Andrea Work Phone: [facility] 04-14-2022 11:23-0500 Diastolic blood pressure 93 mm[Hg] MD Rylan Andrea Work Phone: [facility] 04-14-2022 11:23-0500 Heart rate 95 /min MD Rylan Andrea Work Phone: [facility] 04-14-2022 11:23-0500 Respiratory rate 20 /min MD Rylan Andrea Work Phone: [facility] 04-14-2022 11:23-0500 SaO2% (BldA) [Mass fraction] 100 % MD Rylan Andrea Work Phone: [facility] 04-14-2022 11:23-0500 Systolic blood pressure 130 mm[Hg] MD Rylan Andrea Work Phone: [facility] 04-11-2022 16:03-0500 Body temperature 97.5 [degF] MD Rylan Andrea Work Phone: [facility] 04-11-2022 16:03-0500 Diastolic blood pressure 88 mm[Hg] MD Rylan Andrea Work Phone: [facility] 04-11-2022 16:03-0500 Heart rate 89 /min MD Rylan Andrea Work Phone: [facility] 04-11-2022 16:03-0500 Respiratory rate 15 /min MD Rylan Andrea Work Phone: [facility] 04-11-2022 16:03-0500 SaO2% (BldA) [Mass fraction] 97 % MD Rylan Andrea Work Phone: [facility] 04-11-2022 16:03-0500 Systolic blood pressure 125 mm[Hg] MD Rylan Andrea Work Phone: [facility] 04-11-2022 05:07-0500 Body weight 67.7 kg MD Rylan Andrea Work Phone: [facility] 04-10-2022 15:56-0500 Body height 182.88 cm MD Rylan Andrea Work Phone: [facility] 04-10-2022 15:56-0500 Body temperature 98.2 [degF] MD Rylan Andrea Work Phone: [facility] 04-10-2022 15:56-0500 Body weight 66.7 kg MD Rylan Andrea Work Phone: [facility] 04-10-2022 15:56-0500 Diastolic blood pressure 99 mm[Hg] MD Rylan Andrea Work Phone: [facility] 04-10-2022 15:56-0500 Heart rate 99 /min MD Rylan Andrea Work Phone: [facility] 04-10-2022 15:56-0500 Respiratory rate 20 /min MD Rylan Andrea Work Phone: [facility] 04-10-2022 15:56-0500 SaO2% (BldA) [Mass fraction] 98 % MD Rylan Andrea Work Phone: [facility] 04-10-2022 15:56-0500 Systolic blood pressure 148 mm[Hg] MD Rylan Andrea Work Phone: [facility] 02-27-2022 14:35-0400 Body height 182.88 cm MD Rylan Andrea Work Phone: [facility] 02-27-2022 14:35-0400 Body temperature 97.7 [degF] MD Rylan Andrea Work Phone: [facility] 02-27-2022 14:35-0400 Body weight 70.35 kg MD Rylan Andrea Work Phone: [facility] 02-27-2022 14:35-0400 Diastolic blood pressure 90 mm[Hg] MD Rylan Andrea Work Phone: [facility] 02-27-2022 14:35-0400 Heart rate 80 /min MD Rylan Andrea Work Phone: [facility] 02-27-2022 14:35-0400 Respiratory rate 20 /min MD Rylan Andrea Work Phone: [facility] 02-27-2022 14:35-0400 SaO2% (BldA) [Mass fraction] 99 % MD Rylan Andrea Work Phone: [facility] 02-27-2022 14:35-0400 Systolic blood pressure 138 mm[Hg] MD Rylan Andrea Work Phone: [facility] 09-13-2021 16:00-0400 Body height 185.42 cm Anita Lincoln Other [employer] [facility] [employer] Other 09-13-2021 16:00-0400 Body mass index (BMI) [Ratio] 20.45 kg/m2 Anita Lincoln Other [employer] Other 09-13-2021 16:00-0400 Body temperature 99.4 [degF] Anita Lincoln Other [employer] Other 09-13-2021 16:00-0400 Body weight 70.31 kg Anita Lincoln Other [employer] Other 09-13-2021 16:00-0400 Diastolic blood pressure 82 mm[Hg] Anita Lincoln Other [employer] Other 09-13-2021 16:00-0400 Respiratory rate 18 /min Anita Lincoln Other [facility] [employer] Other 09-13-2021 16:00-0400 SaO2% (BldA) [Mass fraction] 97 % Anita Lincoln Other [facility] [employer] Other 09-13-2021 16:00-0400 Systolic blood pressure 160 mm[Hg] Anita Lincoln Other [facility] [employer] Other 09-08-2021 10:09-0400 Diastolic blood pressure 78 mm[Hg] Rylan Flaherty [employer] Work Phone: [facility] [employer] 250 DO Work Phone: 09-08-2021 10:09-0400 Systolic blood pressure 118 mm[Hg] Rylan Flaherty [employer] Phone: [facility] [employer]Paige 250 DO Work Phone: 09-08-2021 10:05-0400 Body height 182.88 cm Rylan Flaherty [employer] Work Phone: [facility] [employer] 250 DO Work Phone: 09-08-2021 10:05-0400 Body mass index (BMI) [Ratio] 21.16 kg/m2 Rylan Flaherty [employer] Phone: [facility] [employer] 250 DO Work Phone: 09-08-2021 10:05-0400 Body surface area Derived from formula 1.92 m2 Rylan Flaherty [employer] Work Phone: [facility] 250 DO Work Phone: 09-08-2021 10:05-0400 Body weight 70.76 kg Rylan Flaherty [employer] Phone: [facility] [employer] 250 DO Work Phone: 09-08-2021 10:05-0400 Diastolic blood pressure 76 mm[Hg] Rylan Flaherty Andrea Work Phone: [facility] 250 DO Work Phone: 09-08-2021 10:05-0400 Heart rate 96 /min Rylan Krystina Andrea Work Phone: [facility] 250 DO Work Phone: 09-08-2021 10:05-0400 Systolic blood pressure 120 mm[Hg] Rylan Flaherty Andrea Work Phone: [facility] 250 DO Work Phone: 09-08-2021 10:05-0400 20 1 Rylan Flaherty Andrea Work Phone: [facility] 250 DO Work Phone: Comment on above: PHQ-9 TS Encounters Encounter Date Encounter Type Care Provider Facility Start: 12-03-2023 End: 12-03-2023 ambulatory MARILU WARCHOL Not Available Start: 11-12-2023 End: 11-12-2023 ambulatory MARILU WARCHOL Not Available Start: 10-31-2023 End: 10-31-2023 ambulatory FLORINDA MONK Not Available Start: 10-17-2023 ambulatory Varghese Duval Facility :[facility] Start: 10-04-2023 End: 10-04-2023 ambulatory MARILU WARCHOL Not Available Start: 09-19-2023 End: 09-19-2023 ambulatory MARILU WARCHOL Not Available Start: 09-11-2023 ambulatory RYLAN ANDREA [facility] Start: 09-11-2023 End: 09-11-2023 ambulatory MARILU WARCHOL Not Available Start: 08-16-2023 End: 08-16-2023 ambulatory RYLAN ANDREA Not Available Start: 06-29-2023 End: 06-29-2023 ambulatory MD Rylan Andrea Work Phone: [facility] Work Phone: Start: 06-29-2023 End: 06-29-2023 Patient encounter procedure MD Rylan Andrea Work Phone: [facility] Ambulatory Work Phone: Start: 06-29-2023 Registered Recurring MD Rylan Andrea Work Phone: [facility] Acute Work Phone: Start: 06-25-2023 External Result Encounter Estela Rosales Kojo DO Work Phone: [facility] Unsolicited Start: 06-25-2023 External Result Encounter Estela Valladareslauren DO Work Phone: [facility] Unsolicited Start: 04-12-2023 End: 04-12-2023 ambulatory MARILU KAILEY Not Available Start: 12-25-2022 End: 12-25-2022 ambulatory MD Rylan Andrea Work Phone: [facility] Work Phone: Start: 12-25-2022 End: 12-25-2022 Registered Recurring MD Rylan Andrea Work Phone: [facility] Work Phone: Start: 11-01-2022 End: 11-01-2022 ambulatory MD Rylan Andrea Work Phone: [facility] Work Phone: Start: 11-01-2022 End: 11-01-2022 Registered Recurring MD Rylan Andrea Work Phone: [facility] Work Phone: Start: 10-26-2022 End: 10-26-2022 Emergency department patient visit MD Rylan Andrea Work Phone: [facility] Work Phone: Start: 10-26-2022 Registered Recurring MD Rylan Andrea Work Phone: [facility] Work Phone: Start: 10-18-2022 End: 10-18-2022 ambulatory MD Rylan Andrea Work Phone: [facility] Work Phone: Start: 10-18-2022 End: 10-18-2022 Patient encounter procedure MD Rylan Andrea Work Phone: [facility]XRay [place] Work Phone: Start: 10-10-2022 End: 10-10-[address] RYLAN ANDREA Facility:H1 Start: 10-03-2022 End: 10-03-[address] RYLAN ANDREA Facility:H1 Start: 09-19-2022 End: 09-19-2022 ambulatory MD Rylan Andrea Work Phone: [facility] Work Phone: Start: 09-19-2022 End: 09-19-2022 Registered [...] 06-22-2022 ambulatory MD Rylan Andrea Work Phone: [facility] Work Phone: Start: 06-22-2022 End: 06-22-2022 Registered Recurring MD Rylan Andrea Work Phone: [facility] Work Phone: Start: 06-18-2022 End: 06-18-[address] JESSE RAMOS Facility:H1 Start: 06-16-2022 End: 06-17-2022 Admission to same day surgery center MD Rylan Andrea Work Phone: [facility]Surgery [facility] [place] Start: 06-15-2022 Office outpatient vi sit 25 minutes Kamal Chaban [facility] Start: 06-15-2022 End: 06-15-2022 ambulatory MD Rylan Andrea Work Phone: [facility] Work Phone: Start: 06-15-2022 End: 06-15-2022 Patient encounter procedure MD Rylan Andrea Work Phone: [facility]Pre-Surgical Testing Work Phone: Start: 06-01-2022 End: 06-01-2022 ambulatory MD Rylan Andrea Work Phone: [facility] Work Phone: Start: 06-01-2022 End: 06-01-2022 Patient encounter procedure MD Rylan Andrea Work Phone: [facility]-CT Scan [place] Work Phone: Start: 05-31-2022 End: 05-31-2022 ambulatory Kamal Rena Other [employer] Other Start: 05-31-2022 Office outpatient ne w 45 minutes Kamal Chaban [facility] Start: 04-21-2022 End: 04-21-2022 Admission to same day surgery center MD Rylan Andrea Work Phone: [facility]Ultrasound [place] Start: 04-21-2022 End: 04-21-2022 ambulatory MD Rylan Andrea Work Phone: [facility] Work Phone: Start: 04-18-2022 End: 04-18-2022 Admission to same day surgery center MD Rylan Andrea Work Phone: [facility]Ultrasound [place] Start: 04-18-2022 End: 04-18-2022 ambulatory MD Rylan Andrea Work Phone: [facility] Work Phone: Start: 04-14-2022 End: 04-14-2022 ambulatory MD Rylan Andrea Work Phone: [facility] Work Phone: Start: 04-14-2022 End: 04-14-2022 Registered Recurring MD Rylan Andrea Work Phone: [facility] Start: 04-14-2022 Registered Recurring MD Rylan Andrea Work Phone: [facility] Start: 04-10-2022 End: 04-11-2022 Evaluation and management of inpatient MD Rylan Andrea Work Phone: [facility] [place] [facility] Start: 04-10-2022 observation encounter MD [...] Registered Recurring MD Rylan Andrea Work Phone: [facility] Start: 11-29-2021 ambulatory Rylan Ortiz ity: Start: 11-23-2021 End: 11-24-[address] MARCE PAGAN Facility:H1 Start: 09-13-2021 Chart Update Rylan A Andrea Work Phone: [facility] 250 DO Work Phone: Start: 09-13-2021 End: 09-13-2021 ambulatory Anita Lincoln Other [facility] [employer] Other Start: 09-13-2021 Office outpatient vi sit 25 minutes Anita Lincoln [facility] Start: 09-09-2021 ambulatory Rylan Andrea Facil [id number] Start: 09-09-2021 [facility], Provider: Lukas Oliveira, Status: Pen, Time: 1:00 PM Rylan Andrea Work Phone: [facility] 250 DO Work Phone: Start: 09-08-2021 Office consultation new/estab patient 80 min Rylan Andrea Work Phone: [facility] DO Work Phone: Start: 09-08-2021 ambulatory Estela Varma Facility: Start: 08-06-2020 End: 08-07-2020 Patient encounter procedure [place] Start: 04-24-2018 End: 05-14-2018 Patient encounter procedure CUBA Flaherty [facility] Start: 10-24-2017 End: 10-25-2017 Ambulatory [facility] Facility:[facility] Procedures Date Procedure Procedure Detail Performing Clinician Start: 06-25-2023 Carcinoembryonic antigen cea Estela Varma DO Work Phone: Comment on above: Serial tumor marker results determined by assays using different manufacturers or methods may not be comparable. [facility] stock room manager and method: VALENTINE UNICEL DXI, 2 SITE IMMUNOENZYMATIC SANDWICH ASSAY. Start: 06-25-2023 Positron emission to mography with computed tomography MD Rylan Andrea Work Phone: Start: 06-25-2023 Carcinoembryonic antigen cea Estela Varma DO Work Phone: Comment on above: Result Comment: Seri al tumor marker results determined by assays using different manufacturers or methods may not be comparable. [facility] stock room manager and method: VALENTINE UNICEL DXI, 2 SITE IMMUNOENZYMATIC ?SANDWICH? ASSAY. PERFORMED BY: [place] [address] [place] [address] PATHOLOGIST PLASTIC MOLDING OPERATOR CATY DELCID M.D. Performed By: #### C BC, MARILU, LIPASE, FE and TIBC, CEA, T4F, TSH3, YUSUF, [id number], CMP ####[address]#### METH ####[facility] , Start: 06-25-2023 Complete blood count with white cell differential, automated Estela Varma DO Work Phone: Start: 06-25-2023 GLUCOSE POCT GLUCOMETERS Estela Connie Varma DO Work Phone: Start: 03-30-2023 Carcinoembryonic antigen cea Varghese Duval Comment on above: Result Comment: PERF ORMED BY: [facility] [address] [place] [address] PATHOLOGIST PLASTIC MOLDING OPERATOR CATY DELCID M.D. Performed By: #### C EA, CBC, FOL, B12, CMP, FE and TIBC, LIPASE, MARILU, T4F ####[address]#### METH ####[facility] , Start: 12-22-2022 Positron emission to mography with computed tomography MD Rylan Andrea Work Phone: Start: 10-26-2022 Plain chest X-ray MD Katarina Andrea Work Phone: Start: 10-18-2022 Plain chest X-ray MD Katarina [...] MD Rylan Andrea Work Phone: Start: 10-24-2017 Cookie olivas DO Work Phone: Aerobic microbial culture MD Rylan Andrea Work Phone: Anaerobic microbial culture MD Rylan Andrea Work Phone: Blood culture for ba cteria, including anaerobic screen MD Rylan Andrea Work Phone: Insertion of implant able venous access port Rylan Averyter Work Phone: Investigation of tra nsfusion reaction MD Rylan Andrea Work Phone: Surgical repair of u pper extremity Rylan Averyter Work Phone: Total colonoscopy Rylan Krystina Dewayne xter Work Phone: Comment on above: 2016; Vasectomy Rylan A Andrea Work Phone: Plan of Treatment Date Care Activity Detail Author Start: 10-25-2027 Screening for malign ant neoplasm of colon [facility] Start: 11-11-2023 Influenza vaccination Influenza Vacc ine (#1) [facility] Comment on above: Postponed from 01/12 (Patient Refused) Start: 07-10-2023 End: 07-10-2023 Patient encounter procedure 07/10/2023 1:40 PM EST Office Visit [facility] [address] [place] [address] Rylan Andrea MD [address] [place] [address] [facility] Start: 06-25-2023 [facility] Start: 12-11-2022 [facility] Start: 10-26-2022 Erythropoietin (EPO) [Units/volume] in Serum or Plasma [facility] Start: 06-17-2022 [facility] Start: 06-16-2022 Referral to clinical automobile service station attendant [facility] Start: 04-21-2022 [facility] Start: 04-21-2022 Ultrasonic guidance for thoracentesis [facility] Start: 04-18-2022 [facility] Start: 04-18-2022 Ultrasonic guidance for thoracentesis [facility] Start: 04-14-2022 [facility] Start: 04-11-2022 [facility] Start: 04-11-2022 Troponin I.cardiac [Mass/volume] in Serum or Plasma by High sensitivity method [facility] Start: 04-10-2022 Referral to oncologist [facility] Start: 04-10-2022 Hospital admission [facility] Start: 04-10-2022 [facility] Start: 02-27-2022 [facility] Start: 11-29-2021 [facility], Provider: Lukas Oliveira, Status: Pen, Time: 11:10 AM [facility], Provider: Lukas Oliveira, Status: Pen, Time: 11:10 AM [facility] [facility] DO Work Phone: Start: 09-05-2021 [facility] Start: 08-22-2021 [facility] Start: 04-05-2021 [facility] Start: 02-01-2021 [facility] Start: 08-16-2020 [facility] Start: 08-05-2020 [facility] Start: 07-26-2020 [facility] Start: 07-06-2020 [facility] Start: 06-29-2020 [facility] Start: 06-14-2020 [facility] Start: 05-24-2020 [facility] Start: 05-03-2020 [facility] Start: 04-12-2020 [facility] Start: 04-12-2020 [facility] Start: 03-08-2020 [facility] Start: 02-24-2020 [facility] Start: 02-18-2020 [facility] Start: 02-16-2020 End: 02-16-2020 [facility] Start: 02-16-2020 [facility] Start: 02-10-2020 [facility] Start: 02-04-2020 End: 02-04-2020 [facility] Start: 01-28-2020 [facility] Start: 01-26-2020 [facility] Start: 01-26-2020 [facility] Start: 01-21-2020 [facility] Start: 01-21-2020 End: 01-21-2020 [facility] Start: 01-06-2020 [facility] Start: 01-05-2020 [facility] Start: 12-15-2019 [facility] Start: 11-24-2019 [facility] Start: 1965 Screening for malign ant neoplasm of colon [facility] Amylase [Enzymatic activity/volume] in Serum or Plasma Amylase Lab Routine 06/25/2023 7:57 AM EST [facility] Bacteria identified in Blood by Culture [facility] Blood culture for bacteria, including anaerobic screen Blood Culture [facility] Carcinoembryonic Ag [Mass/volume] in Serum or Plasma [facility] Comprehensive metabo lic 1999 panel - Serum or Plasma [facility] Comprehensive metabo lic 1999 panel - Serum or Plasma [facility] Comprehensive metabo lic 1999 panel - Serum or Plasma [facility] Comprehensive metabo lic 1999 panel - Serum or Plasma [facility] Comprehensive metabo lic 1999 panel - Serum or Plasma Comprehensive metabolic panel Lab Routine 06/25/2023 7:57 AM EST [facility] Work Phone: Comprehensive metabo lic 1999 panel - Serum or Plasma [facility] CT Abdomen and Pelvi s W contrast IV [facility] CT Abdomen and Pelvi s W contrast IV [facility] CT Abdomen and Pelvi s W contrast IV [facility] CT Chest W contrast IV [facility] CT Chest W contrast IV [facility] CT Chest W contrast IV [facility] Erythrocyte sediment ation rate by Photometric method [facility] Erythropoietin (EPO) [Units/volume] in Serum or Plasma [facility] Iron and Iron bindin g capacity panel - Serum or Plasma Iron and TIBC Lab Routine 06/25/2023 7:57 AM EST [facility] Lipase [Enzymatic activity/volume] in Serum or Plasma Lipase Lab Routine 06/25/2023 7:57 AM EST [facility] Methylmalonate [Moles/volume] in Serum or Plasma [facility] Patient Education [facility] Work Phone: Patient referral [facility] Work Phone: Thyrotropin [Units/v olume] in Serum or Plasma [facility] Ultrasonic guidance for thoracentesis [facility] Ultrasonic guidance for thoracentesis [facility] Immunizations Immunization Date Immunization Notes Care Provider Fa cilileonardo 09-01-2020 Pfizer-BioNTech COVID-19 Vacc 30 MCG/0.3ML Intramuscular Suspension Rylan A Andrea Work Phone: [facility] 07-30-2020 Pfizer-BioNTech COVID-19 Vacc 30 MCG/0.3ML Intramuscular Suspension Rylan A Andrea Work Phone: [facility] 03-24-2020 influenza, injectabl e, quadrivalent, preservative free Rylan A Andrea Work Phone: [facility] 03-24-2020 influenza virus vaccine, unspecified formulation Estela Valladarestiagoroxann DO Work Phone: [facility] 03-15-2020 influenza, injectabl e, quadrivalent, preservative free Rylan A Andrea Work Phone: [facility] Healthcare Payers Date Payer Category Payer Self-pay [id number] 2023 Private Health Insurance [id number] 2021 Medicaid [id number] 2021 Medicare MEDICARE MEDICAR E RAILROAD [id number] 2021-Present RUBEN AGUAYO RAILROAD MEDICARE [address] [address] [place] [address] Medicare [id number] 2017 Private Health Insurance 1965 Unknown [id number] 2.16.840.1.147962.3.579.2. 173 1965 Unknown [id number] 2.16.840.1.636260.3.579.2. 356 1965 Unknown [id number] 2.16.840.1.532246.3.579.2. 356 1965 Unknown [id number] 2.16.840.1.197406.3.579.2. 356 1965 Unknown [id number] 2.16.840.1.146128.3.579.2. 593 1965 Unknown [id number] 2.16.840.1.908695.3.579.2. 593 1965 Unknown [id number] 2.16.840.1.669997.3.579.2. 593 1965 Unknown [id number] 2.16.840.1.534375.3.579.2. 593 1965 Unknown [id number] 2.16.840.1.414196.3.579.2. 593 1965 Unknown [id number] 2.16.840.1.583229.3.579.2. 593 1965 Unknown [id number] 2.16.840.1.320079.3.579.2. 593 1965 Unknown [id number] 2.16.840.1.472596.3.579.2. 593 1965 Unknown [id number] 2.16.840.1.678659.3.579.2. 593 1965 Unknown [id number] 2.16.840.1.218259.3.579.2. 1286 1965 Unknown [id number] 2.16.840.1.391207.3.579.2. 1286 1965 Unknown [id number] 2.16.840.1.676532.3.579.2. 1286 1965 Unknown [id number] 2.16.840.1.879785.3.579.2. 1286 1965 Unknown [id number] 2.16.840.1.339632.3.579.2. 1286 1965 Unknown [id number] 2.16.840.1.910713.3.579.2. 1259 1965 Unknown [id number] 2.16.840.1.614696.3.579.2. 9 1965 Unknown [id number] 2.16.840.1.675934.3.579.2. 1259 1965 Unknown [id number] 2.16.840.1.855722.3.579.2. 9 1965 Unknown [id number] 2.16.840.1.536214.3.579.2. 1259 1965 Unknown [id number] 2.16.840.1.428878.3.579.2. 9 1965 Unknown [id number] 2.16840.1.874732.3.579.2. 1259 1965 Unknown [id number] 2.16.840.1.603207.3.579.2. 1259 1959 Medicaid [id number] 1959 Medicare [id number] 1959 Private Health Insurance [id number] Private Health Insurance [facility] [employer] [id number] Unknown Unknown [id number] 2.16840.1.027879.19 Unknown [id number] 2.16840.1.012556.3.579.2. 531 Social History Date Type Detail Facility Start: 04-12-2023 End: 04-13-2023 Occasional alcohol use Occasional alcohol use [facility] Comment on above: beer; medical marijuana ed ibles; quit 2020 1ppd; Start: 04-11-2023 End: 04-12-2023 Sex Assigned At [facility] Start: 02-27-2022 End: 09-04-2022 Tobacco smoking status NHIS Ex-smoker (finding) [facility] Start: 1965 Sex Assigned At Male F [facility] Start: 10-26-2022 End: 12-25-2022 Tobacco smoking status NHIS Never smoked tobacco (finding) [facility] Start: 04-12-2023 Tobacco smoking status NHIS Occasional tobacco smoker [facility] History of [...] Abdominal hernia surgical mesh, synthetic polymer, non-bioabsorbable ()[id number] FDA Start: 05-10-2020 Insertion of central venous catheter (CVC) with subcutaneous port for chemotherapy Vascular port/catheter ()[id number] 1957 FDA Start: 11-26-2019 Goals Date Patient Goal Desired Activity /State Functional Status Date Assessment Result Facility 06-17-2022 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 Work Phone: 04-11-2022 Functional status Patient at [facility] Work Phone: 04-10-2022 Functional status Patient at [facility] Work Phone: 09-08-2021 PHQ-9 [id number] Severe (20-27) -[facility] [facility] DO Work Phone: Mental Status Date [...] Progress note Note Date/Time November 01, 2022 11:06[facility] at [address] [address] Hem/Onc Follow Up Note - OP Signed with Addenda Patient: Kirill Echols MR#: [id number] : 1965 Acct:[id number] Age/Sex: 57 / M Type: REG RCR [...] nothing really new going on. HPI: 54-year-old -Liberian gentleman history of smoking 40 pack years [...] overwhelming for recurrence. He lives alone in [place]. His children live in [place]. His left him 8 months ago and [...] and urinary tract. Otherwise, there is an Qrelcf-y-Qabe on the left. The lungs demonstrate emphysematous [...] add on appointment after ER visit at [facility] on August 29, 2022 He [...] for coordination of care (as documented) and ducl-rk-hxlo counseling of patient and/or family. [facility] - Medical History Medical History: Medical History [...] 03/01/22 15:44 KB (Rec: 03/01/22 15:45 KB [id number]) Distress Screening Distress score of 4 or [...] % (Auto) 69.5, Lymph % (Auto) 15.0, Foster % (Auto) 12.1, Eos % (Auto) 2.6, Baso % (Auto) 0.8, Nucleat RBC Rel Count 0.2, Neut # (Auto) 4.1, Lymph # (Auto) 0.9 L, Foster # (Auto) 0.7, Eos # (Auto) 0.1, [facility] Work Phone: 1(926) 129-501905-23-2023 Hospital Discharge instructionsAmbulatory Orders* Initiate Home Health Time Frame: 1 Day, Location: Determined By Patient * Oncology Histology Time Frame: 10/03/22, Location: Determined By Patient * Oncology Histology Time Frame: 10/17/22, Location: Determined By Patient * Oncology Histology Time Frame: 10/10/22, Location: Determined By Patient [facility] Work Phone: 1(886) 588-810305-09-2023 Progress note Author Estela Varma [facility] September 19, 2022 10:02am Note Date/Time September 19, 2022 9:50am [place] [address] Hem/Onc Follow Up Note - OP Signed Patient: Kirill Echols MR#: [id number] : 1965 Acct:[id number] Age/Sex: 57 / M Type: REG RCR [...] Weight loss Follow Up Instructions: f/u wth STRIPPING SHOVEL OPERATOR in 6 weeks, cbc, cmp b12, folate, [...] concerns voiced at this time. HPI: 54-year-old -Liberian gentleman history of smoking 40 pack years [...] overwhelming for recurrence. He lives alone in [place]. His children live in [place]. His left him 8 months ago and [...] and urinary tract. Otherwise, there is an Eekxgy-u-Qewk on the left. The lungs demonstrate emphysematous [...] add on appointment after ER visit at [facility] on August 29, 2022 He [...] for coordination of care (as documented) and iupr-wi-vlyu counseling of patient and/or family. [facility] - Medical History Medical History: Medical History [...] 03/01/22 15:44 KB (Rec: 03/01/22 15:45 KB [id number]) Distress Screening Distress score of 4 or [...] by Estela Varma II, DO> 09/19/22 1002 [facility] Work Phone: 1(410) 883-536104-24-2023 Progress note Author Dixie Olivia [facility] September 04, 2022 12:17pm Note Date/Time September 04, 2022 12: 04pm [facility] at [place] [id number] Hem/Onc Follow Up Note - OP Signed Patient: Kirill Echols MR#: [id number] : 1965 Acct:[id number] Age/Sex: 57 / M Type: REG RCR Copies to: MD Rylan Vega MD~ Subjective Date/Time of Service: Date of Service: 09/04/2022 Time of Service: 11:56 Chief Complaint: Patient is here today for a follow up visit for small cell lung cancer. He went to [place] ER for chest pressure 08-27-[address] scan for review HPI: 54-year-old -Liberian gentleman history of smoking 40 pack years [...] overwhelming for recurrence. He lives alone in [place]. His children live in [place]. His left him 8 months ago and [...] and urinary tract. Otherwise, there is an Kerhgj-v-Kinu on the left. The lungs demonstrate emphysematous [...] He is considering moving back down to [facility] where he is from. 02/27/22 he didnt [...] observation. it was very reproducible. persists today 08/[address] irene has offered to perform [...] add on appointment after ER visit at [facility] on August 29, 2022 He [...] Narrative: Residual and chronic left-sided chest complaints. [facility] - Medical History Medical History: Medical History [...] Reviewed 06/16/22 @ 19:33 by MYRON Cano-BC) H/O vasectomy H/O wrist surgery Right side, [...] 03/01/22 15:44 KB (Rec: 03/01/22 15:45 KB [id number]) Distress Screening Distress score of 4 or [...] add on appointment after ER visit at [facility] on August 29, 2022 He [...] today to home health care nurse at [facility]. 3.) Follow up with Dr. Varma to [...] for coordination of care (as documented) and ywrp-rd-yjkw counseling of patient and/or family. Dictated By: Dixie Olivia APRN DD/ 1156 Signed By: <Electronically signed by ERINN Olivia> 09/04/22 1217 [facility] Work Phone: 1(980) 585-385902-09-2023 Progress note Author Dixie Olivia [facility] June 22, 2022 2:24pm Note Date/Time June 22, 2022 2 :16pm [facility] [place] [address] Hem/Onc Follow Up Note - OP Signed Patient: Kirill Echols MR#: [id number] : 1965 Acct:[id number] Age/Sex: 57 / M Type: REG RCR Copies to: MD Rylan Vega MD~ Subjective Date/Time of Service: Date of Service: 06/22/2022 Time of Service: 14:09 Chief Complaint: Patient is here for a 2 month follow up with, had chest tube placed 06/16/2022. No concerns voiced at this time. HPI: 54-year-old -Liberian gentleman history of smoking 40 pack years [...] overwhelming for recurrence. He lives alone in [place]. His children live in [place]. His left him 8 months ago and [...] and urinary tract. Otherwise, there is an Yuefqr-l-Hbvr on the left. The lungs demonstrate emphysematous [...] He is considering moving back down to [facility] where he is from. 02/27/22 he didnt [...] diaphoresis. No orthostasis or dizziness or palpitations. [facility] - Medical History Medical History: Medical History (Last Updated 06/16/22 @ 20:08 by MYRON Cano-BC) Adverse reaction to LUIS inhibitor drug Anemia [...] Reviewed 06/16/22 @ 19:33 by MYRON Cano-BC) H/O vasectomy H/O wrist surgery Right side, [...] 03/01/22 15:44 KB (Rec: 03/01/22 15:45 KB [id number]) Distress Screening Distress score of 4 or [...] for coordination of care (as documented) and zmyh-op-rpfp counseling of patient and/or family. Dictated By: Dixie Olivia APRN DD/ 1409 Signed By: <Electronically signed by ERINN Olivia> 06/22/22 1424 [facility] Work Phone: 1([phone]) 819-534402-02-2023 Evaluation note* Encounter Date Diagnosis Assessment Notes [...] cell carcinoma of lung (ICD-10 - C34.90) [facility] Other 01-18-2023 Evaluation note* Encounter Date Diagnosis Assessment Notes Treatment Notes Treatment Clinical Notes May, Small cell carcinoma of lung (ICD-10 - C34.90) Please let me know lung CT scan to review schedule thoracentesis if needed May, Chronic obstructive pulmonary disease, unspecified COPD type (ICD-10 - J44.9) May, Shortness of breath (ICD-10 - R06.02) May, Pleural effusion (ICD-10 - J90) [facility] Other 12-02-2022 Progress note Author Estela Varma [facility] April 14, 2022 12:02pm Note Date/Time April 14, 2022 1 1:50am [facility] [place] [address] Hem/Onc Follow Up Note - OP Signed Patient: Kirill Echols MR#: [id number] : 1965 Acct:[id number] Age/Sex: 56 / M Type: REG RCR [...] concerns voiced at this time. HPI: 54-year-old -Liberian gentleman history of smoking 40 pack years [...] overwhelming for recurrence. He lives alone in [place]. His children live in [place]. His left him 8 months ago and [...] and urinary tract. Otherwise, there is an Leqvit-v-Besh on the left. The lungs demonstrate emphysematous [...] He is considering moving back down to [facility] where he is from. 02/27/22 he didnt [...] for coordination of care (as documented) and vbdq-ly-jnua counseling of patient and/or family. [facility] - Medical History Medical History: Medical History [...] 03/01/22 15:44 KB (Rec: 03/01/22 15:45 KB [id number]) Distress Screening Distress score of 4 or [...] % (Auto) 71.4, Lymph % (Auto) 16.2, Foster % (Auto) 8.6, Eos % (Auto) 2.9, Baso % (Auto) 0.9, Neut # (Auto) 4.5, Lymph # (Auto) 1.0, Foster # (Auto) 0.5, Eos# (Auto) 0.2, Baso [...] by Estela Varma II, DO> 04/14/22 1202 [facility] Work Phone: 1([phone]) 278-934110-17-2022 Progress note Author Estela Varma [facility] February 27, 2022 2:56pm Note Date/Time February 27, 2022 2 :51pm [facility] [place] [address] Hem/Onc Follow Up Note - OP Signed Patient: Kirill Echols MR#: [id number] : 1965 Acct:[id number] Age/Sex: 56 / M Type: REG RCR [...] for review. No concerns voiced. HPI: 54-year-old -Liberian gentleman history of smoking 40 pack years [...] overwhelming for recurrence. He lives alone in [place]. His children live in [place]. His left him 8 months ago and [...] and urinary tract. Otherwise, there is an Eqybof-m-Aakk on the left. The lungs demonstrate emphysematous [...] He is considering moving back down to [facility] where he is from. 02/27/22 he didnt [...] for coordination of care (as documented) and kbrs-ix-byph counseling of patient and/or family. [facility] - Medical History Medical History: Medical History (Last Reviewed 08/04/20 @ 10:40 by Socorro Frisa RN) Anemia Anxiety COPD (chronic obstructive pulmonary [...] 09/14/21 14:56 KB (Rec: 09/14/21 14:59 KB [id number]) Distress Screening Distress score of 4 or more discussed Yes with patient? Distress screening follow up: Spoke with patient via phone. Patient is doing ok at this time. Recently had a heart cath which was negative. He is happpy that his scans are good. Dr. Perez is working on getting him into [facility]. - Lab Results Diagram of Most Recent [...] Dictated By: Estela Varma II, DO DD/ 49 Signed By: <Electronically signed by Estela Varma II, DO> 02/27/22 1456 [facility] Work Phone: 1([phone]) 467-168405-03-2022 Evaluation note* Encounter Date Diagnosis Assessment Notes [...] Dr. Andrea to discuss plan of care. [facility] Other 04-25-2022 Progress note Author Estela Varma [facility] September 05, 2021 6:32pm Note Date/Time September 05, 2021 12: 28pm [facility] at [address] [address] Hem/Onc Follow Up Note - OP Signed Patient: Kirill Echols MR#: [id number] : 1965 Acct:[id number] Age/Sex: 56 / M Type: REG RCR [...] concerns voiced at this time. HPI: 54-year-old -Liberian gentleman history of smoking 40 pack years [...] overwhelming for recurrence. He lives alone in [place]. His children live in [place]. His left him 8 months ago and [...] and urinary tract. Otherwise, there is an Rgzkva-w-Itki on the left. The lungs demonstrate emphysematous [...] He is considering moving back down to [facility] where he is from. - Physical Exam [...] for coordination of care (as documented) and lrrh-rd-ufbr counseling of patient and/or family. [facility] - Medical History Medical History: Medical History [...] 02/02/21 13:22 KB (Rec: 02/02/21 13:23 KB [id number]) Distress Screening Distress score of 4 or [...] % (Auto) 69.0, Lymph % (Auto) 18.2, Foster % (Auto) 7.9, Eos % (Auto) 4.2, Baso % (Auto) 0.7, Neut # (Auto) 3.5, Lymph # (Auto) 0.9 L, Foster # (Auto) 0.4, Eos # (Auto) 0.2, [...] by Estela Varma II, DO> 09/05/21 1832 [facility] Work Phone: [phone]) 267-907504-11-2022 Progress note Author Estela Varma [facility] August 22, 2021 3:19pm Note Date/Time August 22, 2021 2:5 3pm [facility] [place] [address] Hem/Onc Follow Up Note - OP Signed Patient: Kirill Echols MR#: [id number] : 1965 Acct:[id number] Age/Sex: 56 / M Type: REG RCR [...] been having shortness of breath HPI: 54-year-old -Liberian gentleman history of smoking 40 pack years [...] overwhelming for recurrence. He lives alone in [place]. His children live in [place]. His left him 8 months ago and [...] for coordination of care (as documented) and ctlo-pi-efnv counseling of patient and/or family. [facility] - Medical History Medical History: Medical History [...] 02/02/21 13:22 KB (Rec: 02/02/21 13:23 KB [id number]) Distress Screening Distress score of 4 or [...] % (Auto) 62.5, Lymph % (Auto) 20.1, Foster % (Auto) 11.9, Eos % (Auto) 4.8, Baso % (Auto) 0.7, Neut # (Auto) 3.0, Lymph # (Auto) 1.0, Foster # (Auto) 0.6, Eos # (Auto) 0.2, [...] signed by Estela Varma II, DO> 08/22/21 2369 [facility] Work Phone: [phone]) 325-975111-23-2021 Progress note Author George Ash [facility] April 05, 2021 12:34pm Note Date/Time April 05, 2021 12:28pm [facility] [place] [address] Hem/Onc Follow Up Note - OP Signed Patient: Kirill Echols MR#: [id number] : 1965 Acct:[id number] Age/Sex: 55 / M Type: REG RCR [...] has seen cardiology and was evaluated in [place] including a stress test. Nothing ever came [...] diaphoresis. No orthostasis or dizziness or palpitations. [facility] - Medical History Medical History: Medical History [...] 02/02/21 13:22 KB (Rec: 02/02/21 13:23 KB [id number]) Distress Screening Distress score of 4 or [...] % (Auto) 74.7, Lymph % (Auto) 11.7, Foster % (Auto) 10.3, Eos % (Auto) 2.5, Baso % (Auto) 0.8, Neut # (Auto) 6.1, Lymph # (Auto) 1.0, Foster # (Auto) 0.9H, Eos # (Auto) 0.2, [...] had extensive work-up in the past in [place] including stress test. He has seen cardiology. [...] for coordination of care (as documented) and rehx-ou-igxd counseling of patient and/or family. Dictated By: George Ash MD DD/ 1227 Signed By: <Electronically signed by MD George Ash> 04/05/21 1234 [facility] Work Phone: 1([phone]) [phone] Progress note Author George Ash [facility] February 08, 2021 11:42am Note Date/Time February 08, 2021 11:41am [facility] [place] [address] Hem/Onc Follow Up Note - OP Signed Patient: Kirill Echols MR#: [id number] : 1965 Acct:[id number] Age/Sex: 55 / M Type: REG RCR [...] & no additional complaints except as documented [facility] - Medical History Medical History: Medical History [...] for coordination of care (as documented) and tdxi-ki-cvmy counseling of patient and/or family. Dictated By: George Ash MD DD/ 1140 Signed By: <Electronically signed by MD George Ash> 02/08/21 1142 [facility] Work Phone: [phone] Progress note Author George Ash [facility] February 01, 2021 11:20am Note Date/Time February 01, 2021 11:19[facility] at [place] [id number] Hem/Onc Follow Up Note - OP Signed Patient: Kirill Echols MR#: [id number] : 1965 Acct:[id number] Age/Sex: 55 / M Type: REG RCR Copies to: MD Rylan Vega MD~ Subjective Date/Time of Service: Date of Service: 02/01/2021 Time of Service: 11:16 Chief Complaint: Patient is here today d/t pain and numbness left side of chest radiates to back. He has been to [facility] and [facility], He went to his family [...] & no additional complaints except as documented [facility] - Medical History Medical History: Medical History [...] % (Auto) 76.8, Lymph % (Auto) 13.5, Foster % (Auto) 7.5, Eos % (Auto) 1.4, Baso % (Auto) 0.8, Neut # (Auto) 5.1, Lymph # (Auto) 0.9 L, Foster # (Auto) 0.5, Eos # (Auto) 0.1, [...] for coordination of care (as documented) and vkts-ao-clod counseling of patient and/or family. Dictated By: George Ash MD DD/ 1116 Signed By: <Electronically signed by MD George Ash> 02/01/21 1120 [facility] Work Phone: [phone]) 613-652007-27-2021 Progress note Author George Ash [facility] December 07, 2020 11:02am Note Date/Time December 07, 2020 10:4 0am [facility] at [address] [address] Hem/Onc Follow Up Note - OP Signed Patient: Kirill Echols MR#: [id number] : 1965 Acct:[id number] Age/Sex: 55 / M Type: REG RCR [...] with RIGHT supraclavicular region. These may be home office representative of metastatic lymph nodes. There is [...] % (Auto) 71.8, Lymph % (Auto) 12.7, Foster % (Auto) 10.8, Eos % (Auto)3.9, Baso % (Auto) 0.8, Neut # (Auto) 4.8, Lymph # (Auto) 0.9 L, Foster # (Auto) 0.7, Eos # (Auto) 0.3, [...] getting a bone scan from Dr. Andrea. Esthers been in the ER multiple times according him. - Time with Patient Time Spent with Patient (Follow Up Visit): 25 minutes Coordination of Care & Counseling Time: Greater than 50% of time spent with patient was for coordination of care (as documented) and lqgj-tc-oocv counseling of patient and/or family. Dictated By: George Ash MD DD/ 1039 Signed By: <Electronically signed by MD George Ash> 12/07/20 1102 [facility] Work Phone: [phone]) [phone] Progress note Author Santhosh Chan [facility] September 09, 2020 11:30am Note Date/Time September 09, 2020 11: 21am [facility] [place] [address] Hem/Onc Follow Up Note - OP Signed Patient: Kirill Echols MR#: [id number] : 1965 Acct:[id number] Age/Sex: 55 / M Type: REG RCR [...] for coordination of care (as documented) and ytys-qc-tdzo counseling of patient and/or family. Dictated By: Santhosh Chan MD DD/ 1118 Signed By: <Electronically signed by Santhosh Chan MD> 09/09/20 1130 [facility] Work Phone: 1([phone]) 897-474504-22-2021 Progress note Author Santhosh Chan [facility] September 02, 2020 11:55am Note Date/Time September 02, 2020 11: 53am [facility] at [address] [address] Hem/Onc Follow Up Note - OP Signed Patient: Kirill Echols MR#: [id number] : 1965 Acct:[id number] Age/Sex: 55 / M Type: REG RCR [...] & no additional complaints except as documented [facility] - Medical History Medical History: Medical History [...] for coordination of care (as documented) and upjn-re-cxtx counseling of patient and/or family. Dictated By: Santhosh Chan MD DD/ 115 Signed By: <Electronically signed by Santhosh Chan MD> 09/02/20 1155 [facility] Work Phone: [phone]) [phone] Progress note Author Satnhosh Chan [facility] July 06, 2020 1:19pm Note Date/Time July 06, 2020 1:17pm [facility] [place] [address] Hem/Onc Follow Up Note - OP Signed Patient: Kirill Echols MR#: [id number] : 1965 Acct:[id number] Age/Sex: 55 / M Type: REG RCR [...] % (Auto) 65.3, Lymph % (Auto) 17.0, Foster % (Auto) 13.4, Eos % (Auto) 3.8, Baso % (Auto) 0.5, Neut # (Auto) 2.9, Lymph # (Auto) 0.7 L, Foster # (Auto) 0.6, Eos # (Auto) 0.2, [...] the process of transitioning her practice to [facility]. (4) Anxiety - Time with Patient Time Spent with Patient (Follow Up Visit): 25 minutes, 35 minutes Coordination of Care & Counseling Time: Greater than 50% of time spent with patient was for coordination of care (as documented) and ycfk-bj-lska counseling of patient and/or family. Dictated By: Santhosh Chan MD DD/ 15 Signed By: <Electronically signed by Santhosh Chan MD> 07/06/20 1319 [facility] Work Phone: 1([phone]) [phone] Progress note Author Santhosh Chan [facility] June 15, 2020 4:23pm Note Date/Time June 15, 2020 3 :28pm [facility] [place] [address] Hem/Onc Follow Up Note - OP Signed Patient: Kirill Echols MR#: [id number] : 1965 Acct:[id number] Age/Sex: 55 / M Type: REG RCR [...] % (Auto) 57.8, Lymph % (Auto) 19.4, Foster % (Auto) 16.6, Eos % (Auto) 5.5, Baso % (Auto) 0.7, Neut # (Auto) 2.1, Lymph # (Auto) 0.7 L, Foster # (Auto) 0.6, Eos # (Auto) 0.2, [...] the process of transitioning her practice to [facility]. -OARRS reviewed, no concern. Refill prescription of 2 weeks of oxycodone IR 10 mg (down from 15 mg)x56 provided today (taken 6-hour as needed). (3) Anxiety - Time with Patient Time Spent with Patient (Follow Up Visit): 35 minutes Coordination of Care & Counseling Time: Greater than 50% of time spent with patient was for coordination of care (as documented) and kqve-ju-qxkl counseling of patient and/or family. Dictated By: Santhosh Chan MD DD/ 1528 Signed By: <Electronically signed by Santhosh Chan MD> 06/15/20 1620 [facility] Work Phone: [phone] Progress note Author Georeg Ash [facility] April 06, 2020 3:03pm Note Date/Time April 06, 2020 3:00pm [facility] [place] [address] Hem/Onc Follow Up Note - OP Signed Patient: Kirill Echols MR#: [id number] : 1965 Acct:[id number] Age/Sex: 54 / M Type: REG RCR [...] PET scan. Patient: Kirill Echols MR#: [id number] : 1965 Acct:[id number] Age/Sex: 54 / M ADM Date: 0 Loc: Room: Type: [facility] RCR Attending Dr: George Ash MD Ordering Provider: George Ash MD Date of Service: 03/23/20 CT/CT chest w con: restaging,C34.90 ([id number]) CT/CT abdomen pelvis w con: restaging,C34.90 Copies [...] proximal great vessels. Patient has a left-sided Dcabsu-y-Icub catheter. There is continued ill-defined soft tissue [...] the findings below: Patient: Kirill Echols MR#: [id number] : 1965 Acct:[id number] Age/Sex: 54 / M ADM Date: 0 Loc: Room: Type: [facility] Attending Dr: Varghese Duval MD Ordering Provider: [...] with RIGHT supraclavicular region. These may be home office representative of metastatic lymph nodes. There is [...] Franklin Gomes M.D.10/31/2019 2:44 PM Dictation Location: [facility] The patient was seen by Dr. James and evaluated by Dr. Duval. 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 [facility] - Medical History Medical History: Medical History [...] for coordination of care (as documented) and lqig-qi-nyve counseling of patient and/or family. Dictated By: George Ash MD DD/ 1459 Signed By: <Electronically signed by MD George Ash> 04/06/20 0269 [facility] Work Phone: [phone]) [phone] Progress note Author George Ash [facility] March 02, 2020 11:39am Note Date/Time March 02, 2020 1 1:38am [facility] [place] [address] Hem/Onc Follow Up Note - OP Signed Patient: Kirill Echols MR#: [id number] : 1965 Acct:[id number] Age/Sex: 54 / M Type: REG RCR [...] the findings below: Patient: Kirill Echols MR#: [id number] : 1965 Acct:[id number] Age/Sex: 54 / M ADM Date: 0 Loc: Room: Type: [facility] Attending Dr: Varghese Duval MD Ordering Provider: [...] with RIGHT supraclavicular region. These may be home office representative of metastatic lymph nodes. There is [...] Franklin Gomes M.D.10/31/2019 2:44 PM Dictation Location: [facility] The patient was seen by Dr. James and evaluated by Dr. Duval. 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 [facility] - Medical History Medical History: Medical History [...] Neut % (Auto)79.5, Lymph % (Auto) 9.8, Foster % (Auto) 8.4, Eos % (Auto) 1.7, Baso % (Auto) 0.6, Neut # (Auto) 6.1, Lymph # (Auto) 0.8 L, Foster # (Auto) 0.6, Eos # (Auto) 0.1, [...] % (Auto) N/A, Lymph % (Auto) N/A, Foster % (Auto) N/A, Eos % (Auto) N/A, Baso % (Auto) N/A, Neut # (Auto) N/A, Lymph # (Auto) N/A, Foster # (Auto) N/A, Eos # (Auto) N/A, [...] for coordination of care (as documented) and dacr-ij-ssdg counseling of patient and/or family. Dictated By: George Ash MD DD/ 6495 Signed By: <Electronically signed by MD George Ash> 03/02/20 113 [facility] Work Phone: [phone] Progress note Author Leoncio Kowalski [facility] February 25, 2020 3:54pm Note Date/Time February 25, 2020 2 :49pm [facility] [place] [address] Rad Onc Follow Up Note - OP Signed Patient: Kirill Echols MR#: [id number] : 1965 Acct:[id number] Age/Sex: 54 / M Type: REG RCR Copies to: MD Rylan Vega MD James E Fanning, MD~ Subjective - Service Date/Time Date: 02/25/20 Time: 14:49 - Diagnosis 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 He has chronic [...] signed by Leoncio Kowalski MD> 02/25/20 1554 [facility] Work Phone: [phone] Progress note Author George Ash [facility] February 10, 2020 1:23pm Note Date/Time February 10, 2020 1:20pm [facility] [place] [address] Hem/Onc Follow Up Note - OP Signed Patient: Kirill Echols N MR#: [id number] : 1965 Acct:[id number] Age/Sex: 54 / M Type: [facility] Copies to: MD Rylan Vega MD~ Subjective [...] the findings below: Patient: Kirill Echols MR#: [id number] : 1965 Acct:[id number] Age/Sex: 54 / M ADM Date: 0 Loc: Room: Type: [facility] Attending Dr: Varghese Duval MD Ordering Provider: Varghese Duval MD Date of Service: 10/31/19 PET/PET tumor init tx strat sb-mt: R91.1 R91.8 R59.1 Copies to: MD Rylan Vega MD [facility] ~ PET/CT FUSION IMAGING CLINICAL INFORMATION: Single pulmonary [...] with RIGHT supraclavicular region. These may be home office representative of metastatic lymph nodes. There is [...] Franklin Gomes M.D.10/31/2019 2:44 PM Dictation Location: [facility] The patient was seen by Dr. James and evaluated by Dr. Duval. 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 [facility] - Medical History Medical History: Medical History [...] % (Auto) 71.8, Lymph % (Auto) 16.0, Foster % (Auto) 10.5, Eos % (Auto) 0.9, Baso % (Auto) 0.8, Neut # (Auto) 4.8, Lymph # (Auto) 1.1, Foster # (Auto) 0.7, Eos # (Auto) 0.1, Baso # (Auto) 0.1, Nucleated RBC % (auto) 0.1 02/04/20 08:35: WBC 13.5 H, Corrected WBC 13.5 H, RBC 3.87 L, Hgb 12.3 L, Hct 38.1 L, MCV 98.6, MCH 31.7, MCHC 32.2 L, RDW 21.3 H, Plt Count 264, MPV 7.4, Neut % (Auto) 72.3, Lymph % (Auto) 7.8, Foster % (Auto) 18.7, Eos % (Auto) 0.3, Baso % (Auto) 0.9, Neut # (Auto) 9.7 H, Lymph # (Auto) 1.1, Foster # (Auto) 2.5 H,Eos # (Auto) 0.0, [...] for coordination of care (as documented) and fzqr-xu-nszv counseling of patient and/or family. Dictated By: George Ash MD DD/ 1319 Signed By: <Electronically signed by MD George Ash> 02/10/20 1323 [facility] Work Phone: 1([phone] Progress note Author George Ash [facility] January 20, 2020 11:30am Note Date/Time January 20, 2020 11:28am [facility] at [place] [id number] Hem/Onc Follow Up Note - OP Signed Patient: Kirill Echols MR#: [id number] : 1965 Acct:[id number] Age/Sex: 54 / M Type: REG RCR [...] on pro which I did add today. [facility] is following him now for palliative pain control and this is clearly better. He is off of steroids. His synovitis and arthritis have resolved. [facility] - Medical History Medical History: Medical History [...] for coordination of care (as documented) and foyh-sz-zzzv counseling of patient and/or family. Dictated By: George Ash MD DD/ 1127 Signed By: <Electronically signed by MD George Ash> 01/20/20 1130 [facility] Work Phone: [phone] Progress note Author George Ash [facility] December 30, 2019 10:35am Note Date/Time December 30, 2019 10 :01[facility] at [address] [address] Hem/Onc Follow Up Note - OP Signed Patient: Kirill Echols MR#: [id number] : 1965 Acct:[id number] Age/Sex: 54 / M Type: REG RCR [...] I have instructed him to get some ebfw-xgs-mncdecp Prilosec for this. He has some type [...] the findings below: Patient: Kirill Echols MR#: [id number] : 1965 Acct:[id number] Age/Sex: 54 / M ADM Date: 0 Loc: PE Room: Type: REG CLI Attending Dr: Varghese Duval MD Ordering Provider: Varghese Duval MD Date of Service: 10/31/19 PET/PET tumor init tx strat sb-mt: R91.1 R91.8 R59.1 Copies to: MD Rylan Vega MD Ward,Franklin Tapia DO~ PET/CT FUSION IMAGING CLINICAL INFORMATION: Single [...] with RIGHT supraclavicular region. These may be home office representative of metastatic lymph nodes. There is [...] Franklin Gomes M.D.10/31/2019 2:44 PM Dictation Location: [facility] The patient was seen by Dr. James and evaluated by Dr. Duval. 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 [facility] - Medical History Medical History: Medical History [...] % (Auto) N/A, Lymph % (Auto) N/A, Foster % (Auto) N/A, Eos % (Auto) N/A, Baso % (Auto) N/A, Neut # (Auto) N/A, Lymph # (Auto) N/A, Foster # (Auto) N/A, Eos # (Auto) N/A, [...] for coordination of care (as documented) and rlln-go-yhme counseling of patient and/or family. Dictated By: George Ash MD DD/ 0959 Signed By: <Electronically signed by MD George Ash> 12/30/19 0826 [facility] Work Phone: [phone] Progress note Author George Ash [facility] December 23, 2019 10:25am Note Date/Time December 23, 2019 10 :18am [facility] at [address] [address] Hem/Onc Follow Up Note - OP Signed Patient: Kirill Echols MR#: [id number] : 1965 Acct:[id number] Age/Sex: 54 / M Type: REG RCR [...] the findings below: Patient: Kirill Echols MR#: [id number] : 1965 Acct:[id number] Age/Sex: 54 / M ADM Date: 0 Loc: Room: Type: [facility] Attending Dr: Varghese Duvla MD Ordering Provider: Varghese Duval MD Date [...] with RIGHT supraclavicular region. These may be home office representative of metastatic lymph nodes. There is [...] Franklin Gomes M.D.10/31/2019 2:44 PM Dictation Location: [facility] The patient was seen by Dr. James and evaluated by Dr. Duval. 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 [facility] - Medical History Medical History: Medical History [...] for coordination of care (as documented) and mybz-dx-ygbw counseling of patient and/or family. Dictated By: George Ash MD DD/ 1015 Signed By: <Electronically signed by MD George Ash> 12/23/19 1025 [facility] Work Phone: [phone] Progress note Author George Ash [facility] December 16, 2019 11:08am Note Date/Time December 16, 2019 11: 01am [facility] at [address] [address] Hem/Onc Follow Up Note - OP Signed Patient: Kirill Echols MR#: [id number] : 1965 Acct:[id number] Age/Sex: 54 / M Type: REG RCR [...] the findings below: Patient: Kirill Echols MR#: [id number] : 1965 Acct:[id number] Age/Sex: 54 / M ADM Date: 0 Loc: Room: Type: [facility] Attending Dr: Varghese Duval MD Ordering Provider: [...] with RIGHT supraclavicular region. These may be home office representative of metastatic lymph nodes. There is [...] Franklin Gomes M.D.10/31/2019 2:44 PM Dictation Location: [facility] The patient was seen by Dr. James and evaluated by Dr. Duval. 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 [facility] - Medical History Medical History: Medical History [...] % (Auto) 33.7, Lymph % (Auto) 41.5, Foster % (Auto) 21.4, Eos % (Auto) 2.0, Baso % (Auto) 1.4, Neut # (Auto) 1.6 L, Lymph # (Auto) 1.9, Foster # (Auto) 1.0 H, Eos # (Auto) [...] % (Auto) 21.1, Lymph % (Auto) 51.6, Foster % (Auto) 24.2, Eos % (Auto) 1.9, Baso % (Auto) 1.2, Neut # (Auto) 0.5 L, Lymph # (Auto) 1.3, Foster # (Auto) 0.6, Eos # (Auto) 0.0, [...] for coordination of care (as documented) and bakj-nh-bzgp counseling of patient and/or family. Dictated By: George Ash MD DD/ 1059 Signed By: <Electronically signed by MD George Ash> 12/16/19 1108 [facility] Work Phone: [phone] Progress note Author George Ash [facility] December 09, 2019 11:13am Note Date/Time December 09, 2019 11:1 1am [facility] at [address] [address] Hem/Onc Follow Up Note - OP Signed Patient: Kirill Echols MR#: [id number] : 1965 Acct:[id number] Age/Sex: 54 / M [facility] Copies to: MD Rylan Vega MD~ [...] the findings below: Patient: Kirill Echols MR#: [id number] : 1965 Acct:[id number] Age/Sex: 54 / M ADM Date: 0 Loc: Room: Type: [facility] Attending Dr: Varghese Duval MD Ordering Provider: [...] with RIGHT supraclavicular region. These may be home office representative of metastatic lymph nodes. There is [...] Franklin Gomes M.D.10/31/2019 2:44 PM Dictation Location: [facility] The patient was seen by Dr. James and evaluated by Dr. Duval. 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 [facility] - Medical History Medical History: Medical History [...] 7 Days 12/09/19 09:14: PHA Creatinine Clear 109.1829382087, Sodium 130 L, Potassium 4.3, Chloride 99, [...] at thattime as well. His dose of MEDICAL ADMINISTRATOR-16 is adjusted to 50% due to [...] for coordination of care (as documented) and uuzk-xu-ijih counseling of patient and/or family. Dictated By: George Ash MD DD/ 1109 Signed By: <Electronically signed by MD George Ash> 12/09/19 1113 [facility] Work Phone: [phone] Progress note Author George Ash [facility] November 25, 2019 11:06am Note Date/Time November 25, 2019 11:0 1am [facility] at [address] [address] Hem/Onc Follow Up Note - OP Signed Patient: Kirill Echols MR#: [id number] : 1965 Acct:[id number] Age/Sex: 54 / M Type: REG RCR [...] the findings below: Patient: Kirill Echols MR#: [id number] : 1965 Acct:[id number] Age/Sex: 54 / M ADM Date: 0 Loc: Room: Type: REG CLI Attending Dr: Varghese Duval MD Ordering [...] with RIGHT supraclavicular region. These may be home office representative of metastatic lymph nodes. There is [...] Franklin Gomes M.D.10/31/2019 2:44 PM Dictation Location: [facility] The patient was seen by Dr. James and evaluated by Dr. Duval. 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 The patient does have evidence of hyponatremia. It is somewhat mild. He does have clubbing on physical exam. [facility] - Medical History Medical History: Medical History [...] % (Auto) 62.6, Lymph % (Auto) 28.7, Foster % (Auto) 6.5, Eos % (Auto) 1.5, Baso % (Auto) 0.7, Neut # (Auto) 4.6, Lymph # (Auto) 2.1, Foster # (Auto) 0.5, Eos # (Auto) 0.1, Baso # (Auto) 0.0, Nucleated RBC % (auto) 0.2 11/24/19 07:33: PHA Creatinine Clear 75.2345126616, Sodium 128 L, Potassium 3.7,Chloride 93 L, [...] Not detected 11/18/19 14:04: PHA Creatinine Clear 68.1483099306, Sodium 128 L, Potassium 4.8,Chloride 93 L, [...] Neut % (Auto)N/A, Lymph % (Auto) N/A, Foster % (Auto) N/A, Eos % (Auto) N/A, Baso % (Auto) N/A,Neut # (Auto) N/A, Lymph # (Auto) N/A, Foster # (Auto) N/A, Eos # (Auto) N/A, [...] for coordination of care (as documented) and hiiy-tv-fsbv counseling of patient and/or family. Dictated By: George Ash MD DD/ 1100 Signed By: <Electronically signed by MD George Ash> 11/25/19 1106 [facility] Work Phone: [phone] Consult note Author Leoncio Kowalski [facility] November 20, 2019 2:44pm Note Date/Time November 20, 2019 1:38p m [facility] [place] [address] Rad Onc Consult Note - OP Signed Patient: Kirill Echols MR#: [id number] : 1965 Acct:[id number] Age/Sex: 54 / M Type: REG RCR Copies to: MD Rylan Vega MD James E Fanning, MD~ HPI - Service Date/Time Date: 11/20/19 Time: 09:50 Diagnosis: 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 [facility] - Medical History Medical History: Medical History [...] any. Dictated By: Leoncio Kowalski MD DD/ 8696 Signed By: <Electronically signed by Leoncio Kowalski MD> 11/20/19 4648 [facility] Work Phone: [phone] Progress note Author George Ash [facility] November 20, 2019 11:12am Note Date/Time November 20, 2019 11:06 am [facility] [place] [address] Hem/Onc Follow Up Note - OP Signed Patient: Kirill Echols MR#: [id number] : 1965 Acct:[id number] Age/Sex: 54 / M Type: REG RCR [...] see Dr. Duval tomorrow for consideration of Xllrhy-l-Ycya. Chemotherapy education will be tomorrow November 20. [...] the findings below: Patient: Kirill Echols MR#: [id number] : 1965 Acct:[id number] Age/Sex: 54 / M ADM Date: 0 Loc: PE Room: Type: REG CLI Attending Dr: Varghese Duval MD Ordering Provider: Varghese Duval MD Date of Service: 10/31/19 PET/PET tumor init tx strajennifer sb-mt: R91.1 R91.8 R59.1 Copies to: MD [...] with RIGHT supraclavicular region. These may be home office representative of metastatic lymph nodes. There is [...] Franklin Gomes M.D.10/31/2019 2:44 PM Dictation Location: [facility] The patient was seen by Dr. James and evaluated by Dr. Duval. 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 The patient does have evidence of hyponatremia. It is somewhat mild. He does have clubbing on physical exam. [facility] - Medical History Medical History: Medical History [...] 7 Days 11/18/19 14:04: PHA Creatinine Clear 68.3591639455, Sodium 128 L, Potassium 4.8,Chloride 93 L, [...] Neut % (Auto)N/A, Lymph % (Auto) N/A, Foster % (Auto) N/A, Eos % (Auto) N/A, Baso % (Auto) N/A,Neut # (Auto) N/A, Lymph # (Auto) N/A, Foster # (Auto) N/A, Eos # (Auto) N/A, [...] cancer The patient will be seen for Jzlizt-k-Pohd tomorrow. Head CT has been ordered and [...] for coordination of care (as documented) and hmnj-ok-ptwx counseling of patient and/or family. Dictated By: George Ash MD DD/ 1104 Signed By: <Electronically signed by MD George Ash> 11/20/19 1112 [facility] Work Phone: [phone] Consult note Author George Ash [facility] November 18, 2019 2:02pm Note Date/Time November 18, 2019 1:50p m [place] [address] Hem/Onc Consult Note - OP Signed Patient: Kirill Echols MR#: [id number] : 1965 Acct:[id number] Age/Sex: 54 / M Type: REG RCR [...] the findings below: Patient: Kirill Echols MR#: [id number] : 1965 Acct:[id number] Age/Sex: 54 / M ADM Date: 0 Loc: Room: Type: REG CLI Attending Dr: Varghese Duval MD Ordering [...] with RIGHT supraclavicular region. These may be home office representative of metastatic lymph nodes. There is [...] He does have clubbing on physical exam. [facility] - Medical History Medical History: Medical History (Last Reviewed 11/18/19 @ 12:53 by Marilu Ceja, RN) COPD (chronic obstructive pulmonary disease) Emphysema [...] for immediate head CT. He will need Snrnvo-u-Nfzq placement and I will refer him to Dr. Duval for this. The patient has fairly limited disease in the chest and mediastinum and may very well be a candidate for combined modality therapy with chemotherapy and radiation. I will refer himto radiation oncology here at [facility]. We will recommend to him immediate chemotherapy [...] for coordination of care (as documented) and oteq-te-tvsu counseling of patient and/or family. Dictated By: George Ash MD DD/ 1349 Signed By: <Electronically signed by MD George Ash> 11/18/19 1402 [facility] Work Phone: Evaluation noteNo assessment information available [facility] Work Phone: Evaluation note* Diagnosis Onset Date Resolution Status Anemia due to chemotherapy a cute Anxiety acute Cancer-related pain acute Chest pain acute Diarrhea acute Edema acute Joint pain acute Neck pain acute Small cell lung cancer chron ic [facility] Work Phone: Evaluation note* Diagnosis Onset Date Resolution Status Anemia due to chemotherapy a cute Anxiety acute Cancer-related pain acute Chest pain acute Diarrhea acute Edema acute Joint pain acute Neck pain acute Small cell lung cancer chron ic Chest pain acute [facility] Work Phone: Evaluation note* Diagnosis Onset Date Resolution Status Chest pain acute Small cell lung cancer acute Anemia due to chemotherapy a cute Anxiety acute Cancer-related pain acute Chest pain acute Diarrhea acute Edema acute Joint pain acute Neck pain acute Small cell lung cancer chron ic [facility] Work Phone: Evaluation note* Diagnosis Onset Date Resolution Status Chest pain acute Small cell lung cancer acute Anemia due to chemotherapy a cute Anxiety acute Cancer-related pain acute Chest pain acute Diarrhea acute Edema acute Joint pain acute Neck pain acute Small cell lung cancer chron ic Small cell lung cancer acute [facility] Work Phone: Evaluation note* Diagnosis Onset Date Resolution Status Chest [...] Diarrhea resolved Edema resolved Neck pain resolved [facility] Work Phone: Evaluation note* Diagnosis Onset Date Resolution Status Cancer-related pain acute Chronic hyponatremia acute Joint pain acute Shortness of breath acute Weight loss acute Small cell lung cancer chron ic Anxiety resolved Chest pain resolved Diarrhea resolved Edema resolved Neck pain resolved [facility] Work Phone: Evaluation note* Diagnosis Onset Date Resolution Status Cancer-related pain acute Chronic hyponatremia acute Joint pain acute Shortness of breath acute Weight loss acute Small cell lung cancer chron ic Anxiety resolved Chest pain resolved Diarrhea resolved Edema resolved Neck pain resolved Small cell lung cancer chron [facility] Work Phone: History and physical note Author Tez Irene [facility] April 10, 2022 3:12pm Note Date/Time April 10, 2022 3:12pm [facility] [address] [place] [address] Hospitalist H&P Signed Patient: Kirill Echols MR#: [id number] : 1965 Acct:[id number] Age/Sex: 56 / M Adm Date: 2 Loc: 3T Room: [address] [place] [address] Type: ADM INOo Attending Dr: Tez Irene [...] right hand Pancreatitis Anxiety disorder and depression PMFSH Vaccinated for COVID-19?: Yes Medical History Anemia [...] % (Auto) 14.2 % (.) 04/10/22 10:20 Foster % (Auto) 9.9 % (.) 04/10/22 10:20 Eos % (Auto) 1.5 % (.) 04/10/22 10:20 Baso % (Auto) 1.0 % (.) 04/10/22 10:20 Neut # (Auto) 4.5 x10E3/uL (1.8-7.7) 04/10/22 10:20 Lymph # (Auto) 0.9 x10E3/uL (1.00-4.8) L 04/10/22 10:20 Foster # (Auto) 0.6 x10E3/uL (0.0-0.8) 04/10/22 10:20 [...] <Electronically signed by Tez Irene MD> 04/10/22 1512 [facility] Work Phone: Hispmhm general Narrative - Reported* Type Description Date Medical History COPD Medical History anxiety Medical History HTN Medical History Lung CA Surgical History Vasectomy Surgical History Right wrist surgery 2005 Surgical History Hernia repair Hospitalization History Related to [facility] Risk Other History general Narrative - Reported* Type Description Date Medical History COPD Medical History anxiety Medical History HTN Medical History Lung CA, small cell remission Surgical History Vasectomy Surgical History Right wrist surgery 2005 Surgical History Hernia repair Hospitalization History Related to [facility] Risk Other Hospital Discharge instructionsAmbulatory Orders* Initiate Home [...] Work Phone: Progress note Author Estela Varma [facility] February 27, 2022 2:56pm Note Date/Time February 27, 2022 2 :51pm [facility] at [place] [id number] Hem/Onc Follow Up Note - OP Signed Patient: Kirill Echols MR#: [id number] : 1965 Acct:[id number] Age/Sex: 56 / M Type: REG RCR [...] for review. No concerns voiced. HPI: 54-year-old -Liberian gentleman history of smoking 40 pack years [...] overwhelming for recurrence. He lives alone in [place]. His children live in [place]. His left him 8 months ago and [...] and urinary tract. Otherwise, there is an Kfvkgb-l-Zxol on the left. The lungs demonstrate emphysematous [...] He is considering moving back down to [facility] where he is from. 02/27/22 he didnt [...] for coordination of care (as documented) and tclg-lf-tuay counseling of patient and/or family. [facility] - Medical History Medical History: Medical History [...] 09/14/21 14:56 KB (Rec: 09/14/21 14:59 KB [id number]) Distress Screening Distress score of 4 or more discussed Yes with patient? Distress screening follow up: Spoke with patient via phone. Patient is doing ok at this time. Recently had a heart cath which was negative. He is happpy that his scans are good. Dr. Perez is working on getting him into [facility]. - Lab Results Diagram of Most Recent [...] by Estela Varma II, DO> 02/27/22 1456 [facility] Work Phone: Progress note Author Estela Varma [facility] April 14, 2022 12:02pm Note Date/Time April 14, 2022 1 1:50am [facility] [place] [address] Hem/Onc Follow Up Note - OP Signed Patient: Kirill Echols MR#: [id number] : 1965 Acct:[id number] Age/Sex: 56 / M Type: REG RCR [...] concerns voiced at this time. HPI: 54-year-old -Liberian gentleman history of smoking 40 pack years [...] overwhelming for recurrence. He lives alone in [place]. His children live in [place]. His left him 8 months ago and [...] and urinary tract. Otherwise, there is an Bwiteg-y-Gctj on the left. The lungs demonstrate emphysematous [...] He is considering moving back down to [facility] where he is from. 02/27/22 he didnt [...] for coordination of care (as documented) and ulrl-wi-mstp counseling of patient and/or family. [facility] - Medical History Medical History: Medical History [...] 03/01/22 15:44 KB (Rec: 03/01/22 15:45 KB [id number]) Distress Screening Distress score of 4 or [...] % (Auto) 71.4, Lymph % (Auto) 16.2, Foster % (Auto) 8.6, Eos % (Auto) 2.9, Baso % (Auto) 0.9, Neut # (Auto) 4.5, Lymph # (Auto) 1.0, Foster # (Auto) 0.5, Eos# (Auto) 0.2, Baso [...] Signed By: <Electronically signed by Estela Varma II DO> 04/14/22 1202 [facility] Work Phone: Progress note Author Dixie Olivia [facility] June 22, 2022 2:24pm Note Date/Time June 22, 2022 2 :16pm [facility] [place] [address] Hem/Onc Follow Up Note - OP Signed Patient: Kirill Echols MR#: [id number] : 1965 Acct:[id number] Age/Sex: 57 / M Type: REG RCR Copies to: MD Rylan Vega MD~ Subjective Date/Time of Service: Date of Service: 06/22/2022 Time of Service: 14:09 Chief Complaint: Patient is here for a 2 month follow up with, had chest tube placed 06/16/2022. No concerns voiced at this time. HPI: 54-year-old -Liberian gentleman history of smoking 40 pack years [...] overwhelming for recurrence. He lives alone in [place]. His children live in [place]. His left him 8 months ago and [...] and urinary tract. Otherwise, there is an Lykbav-n-Kaea on the left. The lungs demonstrate emphysematous [...] He is considering moving back down to [facility] where he is from. 02/27/22 he didnt [...] diaphoresis. No orthostasis or dizziness or palpitations. [facility] - Medical History Medical History: Medical History (Last Updated 06/16/22 @ 20:08 by MYRON Cano-BC) Adverse reaction to LUIS inhibitor drug Anemia [...] Reviewed 06/16/22 @ 19:33 by MYRON Cano-BC) H/O vasectomy H/O wrist surgery Right side, [...] 03/01/22 15:44 KB (Rec: 03/01/22 15:45 KB [id number]) Distress Screening Distress score of 4 or [...] for coordination of care (as documented) and ipgz-ct-mvgw counseling of patient and/or family. Dictated By: Dixie Olivia APRN DD/ 1409 Signed By: <Electronically signed by ERINN Olivia> 06/22/22 1424 [facility] Work Phone: Progress note Author Estela Varma [facility] September 19, 2022 10:02am Note Date/Time September 19, 2022 9:50am [facility] at [place] [id number] Hem/Onc Follow Up Note - OP Signed Patient: Kirill Echols MR#: [id number] : 1965 Acct:[id number] Age/Sex: 57 / M Type: REG RCR [...] Weight loss Follow Up Instructions: f/u wth STRIPPING SHOVEL OPERATOR in 6 weeks, cbc, cmp b12, folate, [...] concerns voiced at this time. HPI: 54-year-old -Liberian gentleman history of smoking 40 pack years [...] overwhelming for recurrence. He lives alone in [place]. His children live in [place]. His left him 8 months ago and [...] and urinary tract. Otherwise, there is an Putwbt-i-Duij on the left. The lungs demonstrate emphysematous [...] add on appointment after ER visit at [facility] on August 29, 2022 He [...] for coordination of care (as documented) and qbco-vh-hyey counseling of patient and/or family. [facility] - Medical History Medical History: Medical History [...] 03/01/22 15:44 KB (Rec: 03/01/22 15:45 KB [id number]) Distress Screening Distress score of 4 or [...] Signed By: <Electronically signed by Estela Varma II DO> 09/19/22 1002 [facility] Work Phone: Progress note Author Estela Varma [facility] December 25, 2022 11:43am Note Date/Time December 25, 2022 11 :39am [facility] [place] [address] Hem/Onc Follow Up Note - OP Signed Patient: Kirill Echols MR#: [id number] : 1965 Acct:[id number] Age/Sex: 57 / M Type: REG RCR [...] today. No new concerns voiced. HPI: 54-year-old -Liberian gentleman history of smoking 40 pack years [...] overwhelming for recurrence. He lives alone in [place]. His children live in [place]. His left him 8 months ago and [...] and urinary tract. Otherwise, there is an Uvrpeu-u-Layn on the left. The lungs demonstrate emphysematous [...] add on appointment after ER visit at [facility] on August 29, 2022 He [...] for coordination of care (as documented) and tzip-gn-bvdi counseling of patient and/or family. [facility] - Medical History Medical History: Medical History [...] 03/01/22 15:44 KB (Rec: 03/01/22 15:45 KB [id number]) Distress Screening Distress score of 4 or [...] % (Auto) 70.2, Lymph % (Auto) 15.7, Foster % (Auto) 7.8, Eos % (Auto) 5.0, Baso % (Auto) 1.3, Nucleat RBC Rel Count 0.0, Neut # (Auto) 4.2, Lymph # (Auto) 0.9 L, Foster # (Auto) 0.5, Eos # (Auto) 0.3, [...] by Estela Varma II, DO> 12/25/22 1143 [facility] Work Phone: Summary Purpose Family [...] section and content) DATE CREATED AUTHOR 10/30/2017 [facility] Center DATE CREATED AUTHOR AUTHOR'S ORGANIZ ATION 05/14/2018 [facility] DATE CREATED AUTHOR AUTHOR'S ORGANIZ ATION 03/05/2020 [facility] DATE CREATED AUTHOR AUTHOR'S ORGANIZ ATION 08/07/2020 [facility] DATE CREATED AUTHOR AUTHOR'S ORGANIZ ATION 08/20/2020 [facility] DATE CREATED AUTHOR AUTHOR'S ORGANIZ ATION 12/02/2021 [employer] DATE CREATED AUTHOR AUTHOR'S ORGANIZ ATION 03/04/2022 [facility] ical Center DATE CREATED AUTHOR AUTHOR'S ORGANIZ ATION 10/23/2022 [facility] DATE CREATED AUTHOR AUTHOR'S ORGANIZ ATION 09/14/2023 [facility] DATE CREATED AUTHOR AUTHOR'S ORGANIZ ATION 12/01/2023 [facility] DATE CREATED AUTHOR AUTHOR'S ORGANIZ ATION 12/05/2023 [facility] EPIC REASON FOR VISIT (unrecogniz [...] vomiting, Being set up for time @ [facility] by Dr. AndreaRef: Dr Varma- Pleural [...] Rylan Andrea MD Primary Care Provider Active YULY Root Attending Provider Active Team Status: Active Member Role Status Dates Rylna Andrea MD Primary Care Provider Active Varghese Duval MD Referring Provider Active Estela Varma II, DO Attending Provider Active Team Status: Active Member Role Status Dates Rylan Andrea MD Primary Care Provider Active Kali Longo DO Emergency Provider Active Tez Irene MD [...] Active Team Status: Inactive Member Role Status Meir Andrea MD Primary Care Provider Active Rachid Chase MD Attending Provider Active Team Status: Inactive Member Role Status Meir Andrea MD Primary Care Provider Active Varghese Duval MD Attending Provider Active Team Status: Inactive Member Role Status Meir Andrea MD Primary Care Provider Active Varghese Duval MD Attending Provider Active Annette Guardado MD Other Provider Active Team Status: Inactive Member Role Status Meir Andrea MD Primary Care Provider Active Humberto Molina PA-C Emergency Provider Active Medical Physics Professor Relationship Specialty Start Date End Date Rylan Andrea MD [address] [place] [address] PCP - General Family Medicine 10/16/22 Marilu Bonner, STRIPPING SHOVEL OPERATOR [address] [place] [address] Nurse Practitioner Family Medicine 04/03/23 Nilsa Isidro NP [address] [place] [address] Nurse Practitioner Pulmonary Disease 04/03/23 Morenita Gomes, RN Registered Nurse Family Medicine 06/18/23 Sanjuana Van LSW Field Operations Manager Family Medicine 06/18/23 Medical Physics Professor Relationship Specialty Start Date End Date Rylan Andrea MD [address] [place] [address] PCP - General Family Medicine 10/16/22 Marilu Bonner, STRIPPING SHOVEL OPERATOR [address] [place] [address] Nurse Practitioner Family Medicine 04/03/23 Nilsa Isidro, ELLE [address] [place] [address] Nurse Practitioner Pulmonary Disease 04/03/23 Morenita Gomes, ARTHUR Registered Nurse Family Medicine 06/18/23 Sanjuana Van LSW Field Operations Manager Family Medicine 06/18/23 FOR RECORDS PERTAINING TO [...] BE BASED ON THE PRIMARY CLINICAL RECORDS. [facility] [employer] provides no warranty or guarantee of the accuracy or completeness of information in this document.
[2023-12-13 12:15] LABS: Anion Gap 20.9; Calcium 9.2 mg/dL (8.5-10.1); Carbon Dioxide 18.5 mmol/L (21.0-32.0); Chloride 88 mmol/L (98-107); Estimated GFR (African America 37 (>=60); Estimated GFR (Non-African Ame 30 (>=60); Glucose 109 mg/dL (74-106); Potassium 4.4 mmol/L (3.5-5.1)
[2023-12-13 12:16] LABS: Hematocrit 38.7 % (42.0-54.0); Hemoglobin 14.4 g/dL (14.0-18.0); Mean Corpuscular HGB Conc 37.2 g/dL (29.9-35.2); Mean Corpuscular Hemoglobin 33.1 pg (25.9-34.0); Platelet Count 104 10^3/uL (150-450); Red Blood Count 4.35 10^6/uL (4.70-6.10); Red Cell Distribution Width 14.6 % (11.0-15.0); Sodium 123 mmol/L (136-145); White Blood Count 19.4 10^3/uL (4.0-11.0)
[2023-12-13] MEDS: ONDANSETRON PF 4 MG/2 ML VIAL IV (12:24)
[2023-12-13] MEDS: MORPHINE SULFATE 2 MG/ML SYRINGE 4 MG IV (12:24)
[2023-12-13] MEDS: 0.9 % SODIUM CHLORIDE 1,000 ML 999 ML IV (12:24)
[2023-12-13] MEDS: KETOROLAC TROMETHAMINE 30 MG/ML VIAL 15 MG IVP (12:24)
[2023-12-13 12:30] LABS: Band Neutrophils Absolute 5.4 10^3/uL (0.0-0.3); Segmented Neut Absolute Manual 12.61 10^3/uL (1.4-6.5)
[2023-12-13 12:31] LABS: Eosinophils Absolute Manual 0.19 10^3/uL (0.00-0.70); Lymphocytes Absolute Manual 0.58 10^3/uL (1.20-3.80); Monocytes Absolute Manual 0.58 10^3/uL (0.30-0.80)
[2023-12-13 12:32] LABS: Anisocytosis 1+
--- NOTE | 2023-12-13 14:00 | ED.GENADUL1 ---
HPI HPI - General Adult General Chief complaint: Urogenital-Male Stated complaint: SOB, RIGHT FLANK PAIN Time Seen by Provider: 12/13/23 12:01 Source: patient Mode of arrival: walk-in History of Present Illness HPI narrative: 58-year-old male to the emergency department chief complaint of right-sided flank pain. He reports it is severe, started suddenly over the last 24 hours. He reports it feels like he has to urinate more than normal. He is unsure if he has blood in his urine. He is concerned his kidneys are failing. He denies history of kidney stones. Denies any fever, sweats, chills. Related Data Home Medications ?Medication ?Instructions ?Recorded ?Confirmed aspirin 81 mg tablet,delayed 81 mg PO QDAY 01/02/23 12/13/23 release folic acid 1 mg tablet 1 mg PO QDAY 01/02/23 12/13/23 cyanocobalamin (vitamin B-12) 1,000 mcg PO .QD 11/06/23 12/13/23 1,000 mcg tablet (Vitamin B-12) fluticasone 250 mcg-salmeterol 50 1 inh inhalation Q12H 11/06/23 12/13/23 mcg/dose blistr powdr for inhalation melatonin 3 mg tablet 3 mg PO .QHS PRN sleep 11/06/23 12/13/23 quetiapine 100 mg tablet See Rx Instructions PO DAILY 11/26/23 12/13/23 furosemide 40 mg tablet 40 mg PO DAILY 12/13/23 12/13/23 levothyroxine 100 mcg tablet 100 mcg PO .ACB 12/13/23 12/13/23 potassium chloride 10 mEq 10 meq PO DAILY 12/13/23 12/13/23 tablet,extended release(part/cryst) (Klor-Con M) Allergies Allergy/AdvReac Type Severity Reaction Status Date / Time chlordiazepoxide Allergy facial Verified 11/16/23 14:39 [From Librium] swelling lisinopril Allergy Hypotension Verified 11/16/23 14:38 sertraline Allergy low energy Verified 11/16/23 14:39 Opioid HPI Opioid Management Most Recent Opioid Data: Last Pain Scale 2 12/13/23 13:38 Last ED Pain Assessment 12/13/23 13:38 Last ORT Total Score 0 11/07/23 04:08 Last ORT Risk Category Low Risk 11/07/23 04:08 Review of Systems ROS Status of ROS 10 or more systems reviewed and unremarkable except as noted in history and below PFSH PFS Medical History (Updated 12/13/23 @ 14:04 by Narciso Graff MD) History of lung cancer in adulthood ?Z85.118 - Personal history of other malignant neoplasm of bronchus and lung (ICD-10) Adult failure to thrive ?R62.7 - Adult failure to thrive (ICD-10) Acute hyponatremia ?E87.1 - Hypo-osmolality and hyponatremia (ICD-10) Acute exacerbation of chronic obstructive pulmonary disease (COPD) ?J44.1 - Chronic obstructive pulmonary disease with (acute) exacerbation (ICD-10) Costochondritis ?M94.0 - Chondrocostal junction syndrome [Tietze] (ICD-10) Hyponatremia ?E87.1 - Hypo-osmolality and hyponatremia (ICD-10) Partial small bowel obstruction ?K56.600 - Partial intestinal obstruction, unspecified as to cause (ICD-10) Insomnia ?G47.00 - Insomnia, unspecified (ICD-10) Hypothyroidism ?E03.9 - Hypothyroidism, unspecified (ICD-10) Lung cancer ?C34.90 - Malignant neoplasm of unspecified part of unspecified bronchus or lung (ICD-10) Hypertension ?I10 - Essential (primary) hypertension (ICD-10) Surgical History (Updated 11/16/23 @ 14:49 by Maryuri Whipple) History of hand surgery ?Z98.890 - Other specified postprocedural states (ICD-10) History of colonoscopy ?Z98.890 - Other specified postprocedural states (ICD-10) H/O vasectomy ?Z98.52 - Vasectomy status (ICD-10) Family History Father Family history of cancer Family history of COPD (chronic obstructive pulmonary disease) Mother Family history of diabetes mellitus Family history of COPD (chronic obstructive pulmonary disease) Brother Family history of diabetes mellitus Sister Family history of diabetes mellitus Social History (Updated 11/16/23 @ 14:20 by Maryuri Whipple) Within the past year, how often did you have a drink containing alcohol: 4 or more times a week Smoking status: Light tobacco smoker Non-prescribed substance use: cannabis (any form) Highest level of school completed/degree received: 12th grade, no diploma Exam Narrative Exam Narrative: VITALS: I have reviewed the triage vital signs. GENERAL: Anxious and tearful, uncomfortable. NEURO: Alert and oriented. Moves all extremities. Face is symmetric and expressive. EYES: PERRL. No scleral icterus or conjunctival injection. No discharge. HENT: Normocephalic, atraumatic. Hearing is grossly intact. Nares grossly patent and without discharge. Mucous membranes moist. NECK: No JVD. Patient moves neck without restriction. CARDIO: Rhythm regular. Normal rate. No murmur, rub, or gallop. Pulses equal bilaterally in the upper and lower extremity. No lower extremity edema. PULM: Lungs clear to auscultation in all rivas. No wheezes, rales, or rhonchi. No conversational dyspnea. No splinting, stridor, or accessory muscle use. GI/: Mild right-sided tenderness. Right flank tenderness. Normoactive bowel sounds EXTREMITIES: Symmetric muscle bulk. No joint swelling. No clubbing, cyanosis, or deformity. SKIN: Warm and dry. Normal turgor. No rash or lesions appreciated. PSYCH: Anxious Constitutional Vital Signs, click to edit/add: Last Vital Signs Temp 98.4 F 12/13/23 13:37 Pulse 105 H 12/13/23 15:02 Resp 19 12/13/23 15:02 BP 105/75 12/13/23 15:02 Pulse Ox 98 12/13/23 14:20 Course Vital Signs Vital signs: Vital Signs Temperature 98.4 F 12/13/23 11:47 Pulse Rate 140 H 12/13/23 11:47 Respiratory Rate 24 H 12/13/23 11:47 Blood Pressure 133/94 H 12/13/23 11:47 Pulse Oximetry 99 12/13/23 11:47 Temperature 98.4 F 12/13/23 13:37 Pulse Rate 105 H 12/13/23 15:02 Respiratory Rate 19 12/13/23 15:02 Blood Pressure 105/75 12/13/23 15:02 Pulse Oximetry 98 12/13/23 14:20 Medical Decision Making [facility] Narrative Medical decision making narrative: 58-year-old male to the emergency department chief complaint of right-sided flank pain. Tachycardic, otherwise stable vitals. The patient is afebrile. Story is concerning for kidney stone. Will obtain CT scan, basic labs, urinalysis. Symptomatic medications are ordered. Patient agrees with this plan. Patient hyponatremic at 123, most recently in the 130s. He does have an elevation of his creatinine at 2.24 acute kidney injury from his baseline of 0.8-0.9 by chart review. He does have a leukocytosis. CT scan without any nephrolithiasis. No other acute cause in the abdomen of his discomfort. He does have some bladder wall thickening concerning for cystitis. Given possible cystitis, tachycardia, leukocytosis lactate and cultures were added on. Attempting to obtain urinalysis. Difficulty obtaining urine. After cultures were completed Rocephin was ordered given cystitis symptoms as well as imaging evidence. Case was discussed with hospitalist who agrees to admit this patient to the hospital for continuing care. Medical Records Medical records reviewed: Yes I reviewed the patient's medical records Lab Data Lab results reviewed: Yes I reviewed the patient's lab results Labs: Lab Results 12/13/23 Range/Units 11:53 WBC 19.4 H (4.0-11.0) 10^3/uL RBC 4.35 L (4.70-6.10) 10^6/uL Hgb 14.4 (14.0-18.0) g/dL Hct 38.7 L (42.0-54.0) % MCV 89.0 (80.0-94.0) fL MCH 33.1 (25.9-34.0) pg MCHC 37.2 H (29.9-35.2) g/dL RDW 14.6 (11.0-15.0) % Plt Count 104 L (150-450) 10^3/uL MPV 10.0 (9.5-13.5) fL Seg Neuts % (Manual) 65.0 (43.0-75.0) Band Neutrophils % 28.0 H (0-5) % Lymphocytes % (Manual) 3.0 L (20.5-60.0) % Monocytes % (Manual) 3.0 (1.7-12.0) % Eosinophils % (Manual) 1.0 (0.9-7.0) % Basophils % (Manual) 0.0 L (0.2-2.0) % Neutrophils # (Manual) 12.61 H (1.4-6.5) 10^3/uL Band Neutrophils # 5.4 H (0.0-0.3) 10^3/uL Lymphocytes # (Manual) 0.58 L (1.20-3.80) 10^3/uL Monocytes # (Manual) 0.58 (0.30-0.80) 10^3/uL Eosinophils # (Manual) 0.19 (0.00-0.70) 10^3/uL Basophils # (Manual) 0.00 (0.00-0.10) 10^3/uL Anisocytosis 1+ Sodium 123 L* (136-145) mmol/L Potassium 4.4 (3.5-5.1) mmol/L Chloride 88 L (98-107) mmol/L Carbon Dioxide 18.5 L (21.0-32.0) mmol/L Anion Gap 20.9 BUN 18.0 (7.0-18.0) mg/dL Creatinine 2.24 H (0.70-1.30) mg/dL Est GFR ( Amer) 37 L (>=60) Est GFR (Non-Af Amer) 30 L (>=60) BUN/Creatinine Ratio 8.0 Glucose 109 H (74-106) mg/dL Lactate 6.4 H* (0.4-2.0) mmol/L Calcium 9.2 (8.5-10.1) mg/dL Imaging Data CT scan - abdomen: Radiologist's impression: ITS Impressions Abdomen/Pelvis CT 12/13/23 12:04 IMPRESSION: 1. Evaluation of the urinary bladder is slightly limited since it is nearly completely empty, however, cystitis is still suspected. 2. No urinary tract calculi or obstructive uropathy. 3. Small pericardial effusion; new since prior study. Electronically authenticated by: JESSE RAMOS Date: 12/13/2023 12:57 ECG Data Attestation: I personally reviewed and interpreted this ECG as follows: (ST@138. NO STEMI. Normal QTC. ) Critical Care Time Critical Care Time Critical Care Time: Yes Total Critical Care Time: 33 Attestation: Critical Care Procedure Note Authorized and Performed by: Narciso Graff DO Total critical care time: 33 min Due to a high probability of clinically significant, life threatening deterioration, the patient required my highest level of preparedness to intervene emergently and I personally spent this critical care time directly and personally managing the patient. This critical care time included obtaining a history; examining the patient; pulse oximetry; ordering and review of studies; arranging urgent treatment with development of a management plan; evaluation of patient's response to treatment; frequent reassessment; and, discussions with other providers. This critical care time was performed to assess and manage the high probability of imminent, life-threatening deterioration that could result in multi-organ failure. It was exclusive of separately billable procedures and treating other patients and teaching time. Please see MDM section and the rest of the note for further information on patient assessment and treatment. Discharge Plan Discharge Chief Complaint: Urogenital-Male Clinical Impression: Acute hyponatremia, Acute renal failure, Acute dehydration, Cystitis Patient Disposition: Admitted As Inpatient Time of Disposition Decision: 15:37 Condition: Good Prescriptions / Home Meds: No Action aspirin 81 mg tablet,delayed release (DR/EC) 81 mg PO QDAY folic acid 1 mg tablet 1 mg PO QDAY fluticasone propion-salmeterol 250-50 mcg/dose blister with device 1 inh INHALATION Q12H cyanocobalamin (vitamin B-12) [Vitamin B-12] 1,000 mcg tablet 1,000 mcg PO .QD melatonin 3 mg tablet 3 mg PO .QHS PRN (Reason: sleep) furosemide 40 mg tablet 40 mg PO DAILY Patient Comments: 12/03/23-12/17/23 levothyroxine 100 mcg tablet 100 mcg PO .ACB potassium chloride [Klor-Con M10] 10 mEq tablet,ER particles/crystals 10 meq PO DAILY Patient Comments: 12/03/23-12/17/23 quetiapine 100 mg tablet See Rx Instructions PO DAILY Rx Instructions: 100mg in morning 200mg at night orally daily; Print Language: Lao Referrals: DANNA QURESHI [Primary Care Provider] - 1 week
[2023-12-13] MEDS: CEFTRIAXONE 1,000 MG in 0.9 % SODIUM CHLORIDE 50 ML 100 MG IV (15:06)
--- NOTE | 2023-12-13 15:07 | ECG_ITS ---
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
[2023-12-13 15:11] LABS: Lactate/Lactic Acid 6.4 mmol/L (0.4-2.0)
[2023-12-13 16:41] LABS: Lactate/Lactic Acid 1.5 mmol/L (0.4-2.0)
--- OUTSIDE RECORDS SUMMARY | 2023-12-13 17:06 | XMS_ITS | CCD ---
Author Organization [facility] CliniSynj Care Team Providers Care Ludlow Machine Operator Name Role Phone Salam, Galloway Unavailable Unavailable Salam, Galloway Unavailable Unavailable Salam, Galloway Unavailable Unavailable RYLAN ANDREA~[phone] UNKNOWN Unavailable Unavailable CUBA ESQUIVEL Unavailable Unavailable [...] Rylan Andrea Primary Care Unavailable Dr. Lukas Olvieira Referring Unavailable Dr. Lukas Oliveira Attending Unavailable MD Rylan Andrea Primary Care Provider MD Varghese Duval Referring Provider DO Estela Varma II Attending Provider MD Rylan Andrea Primary Care Provider [phone] MD Varghese Duval Referring Provider DO Estela Varma II Attending Provider [phone] DO Kali Longo Emergency Provider MD Tez Irene Admit Provider [phone] MD Tez Irene Attending Provider [phone] MD Rylan Andrea Primary Care Provider DO Estela Varma II Other Provider [phone] MD Varghese Duval Referring Provider Adamowicz II, DO Estela J Attending Provider [phone] MD Varghese Duval Referring Provider [phone] Adamowicz II, DO Estela J Attending Provider MD Rachid Chase Attending Provider MD Varghese Duval Attending Provider Adamowicz II, DO Estela J Attending Provider MD Annette Guardado Other Provider MD Varghese Duval Referring Provider Rachid Chase Unavailable MD Rylan Andrea Primary Care Provider MD Varghese Duval Referring Provider Adamowicz II, DO Estela J Attending Provider YULY Isidro Attending Provider [phone] EMRE, DR CLAY Primary Care Unavailable ADAMOWICZ, ESTELA J Admitting Unavailable ADAMOWICZ, ESTELA J Attending Unavailable ADAMOWICZ, ESTELA J Consulting Unavailable ANDREA, DR CLAY Primary Care Unavailable ADAMOWICZ, ESTELA J Admitting Unavailable ADAMOWICZ, ESTELA J Attending Unavailable ADAMOWICZ, ESTELA J Consulting Unavailable ANDREA, DR CLAY Primary Care Unavailable ADAMOWICZ, ESTELA J Admitting Unavailable ADAMOWICZ, ESTELA J Attending Unavailable ADAMOWICZ, ESTELA J Consulting Unavailable [place], DR MARCE Fernandez Consulting Unavailable NADERER, DR [...] Care Provider MD Varghese Duval Referring Provider [phone] Adamowicz II, DO Estela Rosales Attending Provider KIKO Molina Emergency Provider [phone] MD Varghese Duval Referring Provider Adamowicz II, DO Estela Rosales Attending Provider MD Varghese Duval Referring Provider Adamowicz II, DO Estela Rosales Attending Provider [phone] Rylan Andrea MD Primary Care Provider Kailey TEXTILE CLOTHING AND FOOTWEAR MECHANIC, Marilu Unavailable Sanna ALMEIDA, Nilsa R Unavailable Eliseo GIBSON, Morenita Unavailable Carlota JIANG, Sanjuana Unavailable MD Rylan Andrea Primary Care Provider MD Varghese Duval Referring Provider Adamowicz II, DO Estela Rosales Attending Provider [phone] RYLAN ANDREA Referring Unavailable RYLAN ANDREA Primary Care Unavailable RYLAN ANDREA Referring Unavailable RYLAN ANDREA Primary Care Unavailable Varghese Duval Referring Unavailable Adamowicz II, Estela Rosales Attending Unavaila ble Adamowicz II, Estela Rosales Admitting Unavaila ble Rylan Andrea Primary Care Unavailable RYLAN ANDREA Attending Unavailable KAILEY, MARILU Attending Unavailable DANGELOCHOL, MARILU Attending Unavailable DANGELOCHOL, MARILU Referring Unavailable WARCHOL, MARILU Attending Unavailable FLORINDA MONK Attending Unavailable MARILU BONNER Attending Unavailable MARILU BONNER Attending Unavailable Allergies Allergy Classification Reported Allergen(s) Allergy Type Date of Onset Reaction(s) Facility (4 sources) chlordiazePOXID E; Translations: [Librium] Drug Allergy Unknown [facility] Repository (18 sources) Lisinopril Drug Allergy 2 Unknown, Swelling of Lip/Tongue/Thro at [facility] (20 sources) Sertraline; Translations: [sertraline] Drug Allergy 2 Swelling of Lip/Tongue/Thro at [facility] (7 sources) chlordiazePOXID E; Translations: [chlordiazepoxi de] Drug Allergy 3 Edema [facility] (1 source) Amino Acids Drug Allergy [facility] Repository (1 source) Sertraline Drug Allergy 2 [facility] Repository (4 sources) Lisinopril Allergy to substance 3 [facility] (1 source) Lisinopril Drug Allergy 4 [facility] Repository Medications Current Medications Medication Drug [...] tab #100 RF zero given on 12/29 [id number] 200 actuat albuterol 0.09 mg/actuat metered dose [...] (Bisacodyl)) 10 mg Suppository Discontinued 10 MG NC Q24H August 16, 2020 11:00pm September 01, [...] 9:51am docusate sodium 50 mg / sennosides, residential 8.6 mg oral tablet (20 sources) Start: [...] 03, 2019 11:00pm December 01, 2019 12:23pm Hhiszmwijhz-Bwrntwyne-Brhgsb er (15 sources) Anticholinergic, Corticosteroid, beta2-Adrenergic Agonist Start: 07-26-2020 End: 08-17-2020 Qcdnpvamstd-Hvuoiaubi-Zrxyav er (Trelegy Ellipta) 100-62.5-25 mcg Blister With Device Discontinued 1 INH INHALATION Daily July 25, 2020 11:00pm August 17, 2020 8:43am Start: 07-26-2020 End: 08-17-2020 Nstvcqmdkhl-Ldyxcolao-Qevnyr er (Trelegy Ellipta) 100-62.5-25 mcg Blister With [...] at the same time. 0 Active nystatin 762900 unt/ml oral suspension (15 sources) Polyene Antifungal [...] per Palliative or PCP polyethylene glycol 3350 19073 mg powder for oral solution (15 sources) [...] take 2 tablets by mouth at bedti id Zolpidem Tartrate 5 MG (Schedule IV Drug) [...] 09-25-2022 Chronic Other aftercare (1 source) Other patient transition specialist (current) drug therapy; Translations: [OTH RETIREMENT CURRENT DRUG THERAPY] Onset: 3 Episodic Other aftercare (1 source) assisted (current) use of aspirin; Translations: [RETIREMENT CURRENT USE OF ASPIRIN] Onset: 3 Episodic [...] ALT [Catalytic activity/Vol] 14 U/L Normal 7-52 [facility] Comment on above: Performed By: #### C BC, MARILU, LIPASE, FE and TIBC, CEA, T4F, TSH3, YUSUF, [id number], CMP ####[address]#### METH ####[facility] , Albumin [Mass/volume] in Ser um or Plasma by Bromocresol green (BCG) dye binding methoOrdered By: Estela Varma on 06-25-2023 Albumin BCG dye [Mass/Vol] 3.9 g/dL 3.5-5.7 [facility] Alkaline phosphatase [Enzyma tic activity/volume] in Serum or PlasmaOrdered By: Estela Varma on 06-25-2023 ALP [Catalytic activity/Vol] 126 U/L High 34-104 [facility] Comment on above: Performed By: #### C BC, MARILU, LIPASE, FE and TIBC, CEA, T4F, TSH3, YUSUF, [id number], CMP ####[place] [address] [place]#### METH ####[facility] , Amylase [Enzymatic activity/ volume] in Serum or PlasmaOrdered By: Estela Varma on 06-25-2023 Amylase [Catalytic activity/Vol] 52 U/L Normal 29-103 [facility] Comment on above: Performed By: #### C BC, MARILU, LIPASE, FE and TIBC, CEA, T4F, TSH3, YUSUF, [id number], CMP ####[place] [address] [place]#### METH ####[facility] , Aspartate aminotransferase [ Enzymatic activity/volume] in Serum or PlasmaOrdered By: Estela Varma on 06-25-2023 AST [Catalytic activity/Vol] 30 U/L Normal 13-39 [facility] Comment on above: Performed By: #### C BC, MARILU, LIPASE, FE and TIBC, CEA, T4F, TSH3, YUSUF, [id number], CMP ####[address]#### METH ####[facility] , Automated basophil %Ordered By: Estela Varma on 06-25-2023 Basophils/100 WBC (Bld) 1.3 % Normal . [facility] Comment on above: Performed By: #### C BC, MARILU, LIPASE, FE and TIBC, CEA, T4F, TSH3, YUSUF, [id number], CMP ####[address]#### METH ####[facility] , Automated basophil countOrde red By: Estela Varma on 06-25-2023 Basophils (Bld) [#/Vol] 0.1 10*3/uL Normal 0.0-0.2 [facility] Comment on above: Result Comment: PERF ORMED BY: [facility] [address] [place] [address] PATHOLOGIST CHEF BROILER OR FRY CATY DELCID M.D. Performed By: #### C BC, MARILU, LIPASE, FE and TIBC, CEA, T4F, TSH3, YUSUF, [id number], CMP ####[address]#### METH ####[facility] , Automated blood monocyte cou ntOrdered By: Estela Varma on 06-25-2023 Monocytes (Bld) [#/Vol] 0.7 10*3/uL Normal 0.0-0.8 [facility] Comment on above: Performed By: #### C BC, MARILU, LIPASE, FE and TIBC, CEA, T4F, TSH3, YUSUF, [id number], CMP ####[place] [address] [place]#### METH ####[facility] , Automated eosinophil %Ordere d By: Estela Varma on 06-25-2023 Eosinophils/100 WBC (Bld) 2.5 % Normal . [facility] Comment on above: Performed By: #### C BC, MARILU, LIPASE, FE and TIBC, CEA, T4F, TSH3, YUSUF, [id number], CMP ####[address]#### METH ####[facility] , Automated eosinophil countOr dered By: Estela Varma on 06-25-2023 Eosinophils (Bld) [#/Vol] 0.2 10*3/uL Normal 0.0-0.45 [facility] Comment on above: Performed By: #### C BC, MARILU, LIPASE, FE and TIBC, CEA, T4F, TSH3, YUSUF, [id number], CMP ####[place] [address] [place]#### METH ####[facility] , Automated monocyte %Ordered By: Estela Varma on 06-25-2023 Monocytes/100 WBC (Bld) 8.7 % Normal . [facility] Comment on above: Performed By: #### C BC, MARILU, LIPASE, FE and TIBC, CEA, T4F, TSH3, YUSUF, [id number], CMP ####[place] [address] [place]#### METH ####[facility] , Automated neutrophil %Ordere d By: Estela Varma on 06-25-2023 Neutrophils/100 WBC (Bld) 78.2 % Normal . [facility] Comment on above: Performed By: #### C BC, MARILU, LIPASE, FE and TIBC, CEA, T4F, TSH3, YUSUF, [id number], CMP ####[facility] [address]#### METH ####[facility] , Bilirubin.total [Mass/volume ] in Serum or PlasmaOrdered By: Estela Varma on 06-25-2023 Bilirubin [Mass/Vol] 1.0 mg/dL Normal 0.3-1.0 [facility] Comment on above: Performed By: #### C BC, MARILU, LIPASE, FE and TIBC, CEA, T4F, TSH3, YUSUF, [id number], CMP ####[facility]#### METH ####[facility] , CARCINOEMBRYONIC ANTIGENon 0 06-25-2023 Interpretation and review of laboratory results Abnormal [facility] CBC W Auto Differential pane l (Bld)on 06-25-2023 Basophils (Bld) [#/Vol] 0.1 10*3/uL 0.0 - 0.2 10*3/uL [facility] Basophils/100 WBC Manual cnt (Syn fld) 1.3 % . [facility] Eosinophils (Bld) [#/Vol] 0.2 10*3/uL 0.0 - 0.45 10*3/uL [facility] Eosinophils/100 WBC Manual cnt (Syn fld) 2.5 % . [facility] Erythrocyte distribution width (RBC) [Ratio] 15.5 % High 12.0 - 14.8 % [facility] Hematocrit (Bld) [Volume fraction] 40.7 % 38.8 - 50.0 % [facility] Hemoglobin (Bld) [Mass/Vol] 13.7 g/dL 13.0 - 17.0 g/dL [facility] Interpretation and review of laboratory results Abnormal [facility] Lymphocytes (Bld) [#/Vol] 0.8 10*3/uL Low 1.00 - 4.8 10*3/uL [facility] Lymphocytes/100 WBC Manual cnt (Syn fld) 9.3 % . [facility] MCH (RBC) [Entitic mass] 32.9 pg 27.5 - 35.2 pg [facility] MCHC (RBC) [Mass/Vol] 33.7 g/dL 32.5 - 35.6 g/dL [facility] MCV (RBC) [Entitic vol] 97.6 fL 83.5 - 101 fL [facility] Monocytes (Bld) [#/Vol] 0.7 10*3/uL 0.0 - 0.8 10*3/uL [facility] Monocytes+Macrophages /100 WBC Manual cnt (Syn fld) 8.7 % . [facility] Neutrophils (Bld) [#/Vol] 6.5 10*3/uL 1.8 - 7.7 10*3/uL [facility] Neutrophils/100 WBC Manual cnt (Syn fld) 78.2 % . [facility] NRBC 0.2 /100{WBC} 0 - 0.5 /100{WBC} [facility] Platelet mean volume (Bld) [Entitic vol] 7.4 fL 6.6 - 10.1 fL [facility] Platelets (Bld) [#/Vol] 196 10*3/uL 150 - 450 10*3/uL [facility] RBC LM.HPF (Urine sed) [#/Area] 4.17 /[HPF] 3.90 - 5.60 [facility] WBC (Bld) [#/Vol] 8.4 10*3/uL 4.1 - 10.5 10*3/uL [facility] WBC LM.HPF (Urine sed) [#/Area] 8.4 10*3/uL 4.1 - 10.5 10*3/uL [facility] Calcium [Mass/volume] in Ser um or PlasmaOrdered By: Estela Varma on 06-25-2023 Calcium [Mass/Vol] 8.7 mg/dL Normal 8.6-10.3 [facility] Comment on above: Performed By: #### C BC, MARILU, LIPASE, FE and TIBC, CEA, T4F, TSH3, YUSUF, [id number], CMP ####[facility] [address]#### METH ####[facility] , Capillary blood glucose ledy urement by glucometer (mass/volume)Ordered By: Estela Varma on 06-25-2023 Glucose [Mass/Vol] 97 mg/dL Normal [facility] Comment on above: Random Glucose Refer ence Range is dependent on time and content of last meal. Glucose of more than 200 mg/dL in a nonstressed, ambulatory subject supports the diagnosis of Diabetes Mellitus. Result Comment: [place] om Glucose Reference Range is dependent on time and content of last meal. Glucose of more than 200 mg/dL in a nonstressed, ambulatory subject supports the diagnosis of Diabetes Mellitus. PERFORMED BY: [facility] [address] [place] [address] PATHOLOGIST CHEF BROILER OR FRY CATY DELCID M.D. Performed By: #### G LULS ####Point of Care testing, Carbon dioxide, total [Moles /volume] in Serum or PlasmaOrdered By: Estela Varma on 06-25-2023 CO2 [Moles/Vol] 23.2 mmol/L Normal 21.0-31.0 [facility] Comment on above: Performed By: #### C BC, MARILU, LIPASE, FE and TIBC, CEA, T4F, TSH3, YUSUF, [id number], CMP ####[place] [address] [address]#### METH ####[facility] , Chloride [Moles/volume] in S coral or PlasmaOrdered By: Estela Varma on 06-25-2023 Chloride [Moles/Vol] 96 mmol/L Low 98-107 [facility] Comment on above: Performed By: #### C BC, MARILU, LIPASE, FE and TIBC, CEA, T4F, TSH3, YUSUF, [id number], CMP ####[place] [address] [place] [address] [place]#### METH ####[facility] , Complete Blood Count Auto Di ffon 06-25-2023 Mean Corpuscular HGB Conc 33.7 g/dL Normal 32.5-35.6 [facility] Comment on above: Performed By: #### C BC, MARILU, LIPASE, FE and TIBC, CEA, T4F, TSH3, YUSUF, [id number], CMP ####[place] [address] [place]#### METH ####[facility] , NRBC% 0.2 /100{WBC} Normal 0-0.5 [facility] Comment on above: Performed By: #### C BC, MARILU, LIPASE, FE and TIBC, CEA, T4F, TSH3, YUSUF, [id number], CMP ####[address]#### METH ####[facility] , Comprehensive Metabolic Pane nicolas 06-25-2023 Albumin [Mass/Vol] 3.9 g/dL Normal 3.5-5.7 [facility] Comment on above: Performed By: #### C BC, MARILU, LIPASE, FE and TIBC, CEA, T4F, TSH3, YUSUF, [id number], CMP ####[address]#### METH ####[facility] , Creatinine Clr Calc Pharmacy 108.93 Normal [facility] Comment on above: Performed By: #### C BC, MARILU, LIPASE, FE and TIBC, CEA, T4F, TSH3, YUSUF, [id number], CMP ####[place] [address] [place]#### METH ####[facility] , GFR/1.73 sq M.predicted MDRD (S/P/Bld) [Vol rate/Area] mL/min/{1.73_m2} Normal [facility] Comment on above: Performed By: #### C BC, MARILU, LIPASE, FE and TIBC, CEA, T4F, TSH3, YUSUF, [id number], CMP ####[place] [address] [place]#### METH ####[facility] , Creatinine [Mass/volume] in Serum or PlasmaOrdered By: Estela Varma on 06-25-2023 Creatinine [Mass/Vol] 0.70 mg/dL Normal 0.70-1.30 [facility] Comment on above: Performed By: #### C BC, MARILU, LIPASE, FE and TIBC, CEA, T4F, TSH3, YUSUF, [id number], CMP ####[address]#### METH ####[facility] , Erythrocyte distribution wid th [Ratio] by Automated countOrdered By: Estela Varma on 06-25-2023 Erythrocyte distribution width (RBC) [Ratio] 15.5 % High 12.0-14.8 [facility] Comment on above: Performed By: #### C BC, MARILU, LIPASE, FE and TIBC, CEA, T4F, TSH3, YUSUF, [id number], CMP ####[address]#### METH ####[facility] , Erythrocytes [#/volume] in B lood by Automated countOrdered By: Estela Varma on 06-25-2023 RBC (Bld) [#/Vol] 4.17 10*6/uL Normal 3.90-5.60 [facility] Comment on above: Performed By: #### C BC, MARILU, LIPASE, FE and TIBC, CEA, T4F, TSH3, YUSUF, [id number], CMP ####[address]#### METH ####[facility] , Ferritin [Mass/volume] in Se rum or PlasmaOrdered By: Estela Varma on 06-25-2023 Ferritin [Mass/Vol] 207.7 ng/mL Normal 23.9-336.2 [facility] Comment on above: Performed By: #### C BC, MARILU, LIPASE, FE and TIBC, CEA, T4F, TSH3, YUSUF, [id number], CMP ####[facility] [address] [place] [address] [facility]#### METH ####[facility] , Folate [Mass/volume] in Seru m or PlasmaOrdered By: Estela Varma on 06-25-2023 Folate [Mass/Vol] 9.6 ng/mL >5.9 [facility] Comment on above: Folate reference ran ge: >5.9 ng/mlThe WHO technical consultation on folate and vitamin [id number] has determined that folate concentrations lessthan 4 ng/ml are considered deficient. GLUCOSE POCT GLUCOMETERSon 0 06-25-2023 Glucose [Mass/Vol] 97 mg/dL [facility] Comment on above: Random Glucose Refer ence Range is dependent on time and content of last meal. Glucose of more than 200 mg/dL in a nonstressed, ambulatory subject supports the diagnosis of Diabetes Mellitus. [facility] Glucose [Mass/volume] in Ser um or PlasmaOrdered By: Estela Varma on 06-25-2023 Glucose [Mass/Vol] 89 mg/dL Normal 70-100 [facility] Comment on above: ADA recommended refe rence rangeRandom Glucose Reference Range is dependent on time and content of last meal. Glucose of more than 200 mg/dL in a nonstressed, ambulatory subject supports the diagnosis of Diabetes Mellitus. Result Comment: [place] om Glucose Reference Range is dependent on time and content of last meal. Glucose of more than 200 mg/dL in a nonstressed, ambulatory subject supports the diagnosis of Diabetes Mellitus. ADA recommended reference range Performed By: #### C BC, MARILU, LIPASE, FE and TIBC, CEA, T4F, TSH3, YUSUF, [id number], CMP ####[facility] [id number] [place] [address] [place]#### METH ####[facility] , Hematocrit [Volume Fraction] of Blood by Automated countOrdered By: Estela Varma on 06-25-2023 Hematocrit (Bld) [Volume fraction] 40.7 % Normal 38.8-50.0 [facility] Comment on above: Performed By: #### C BC, MARILU, LIPASE, FE and TIBC, CEA, T4F, TSH3, YUSUF, [id number], CMP ####[address]#### METH ####[facility] , Hemoglobin [Mass/volume] in BloodOrdered By: Estela Varma on 06-25-2023 Hemoglobin (Bld) [Mass/Vol] 13.7 g/dL Normal 13.0-17.0 [facility] Comment on above: Performed By: #### C BC, MARILU, LIPASE, FE and TIBC, CEA, T4F, TSH3, YUSUF, [id number], CMP ####[place] [address] [place]#### METH ####[facility] , Iron [Mass/volume] in Serum or PlasmaOrdered By: Estela Varma on 06-25-2023 Iron [Mass/Vol] 159 ug/dL Normal 50-212 [facility] Comment on above: Performed By: #### C BC, MARILU, LIPASE, FE and TIBC, CEA, T4F, TSH3, YUSUF, [id number], CMP ####[place] [address] [place]#### METH ####[facility] , Iron and TIBC Profileon 06-14 % Iron Saturation 65.7 % High 20-50 [facility] Comment on above: Performed By: #### C BC, MARILU, LIPASE, FE and TIBC, CEA, T4F, TSH3, YUSUF, [id number], CMP ####[place] [address] [place]#### METH ####[facility] , Total Iron Binding Capacity 242 ug/dL Low 255-450 [facility] Comment on above: Performed By: #### C BC, MARILU, LIPASE, FE and TIBC, CEA, T4F, TSH3, YUSUF, [id number], CMP ####[facility]#### METH ####[facility] , Iron binding capacity [Mass/ volume] in Serum or PlasmaOrdered By: Estela Varma on 06-25-2023 Iron binding capacity [Mass/Vol] 242 ug/dL 255-450 [facility] Iron saturation [Mass Fracti on] in Serum or PlasmaOrdered By: Estela Varma on 06-25-2023 Iron saturation [Mass fraction] 65.7 % 20-50 [facility] Leukocytes [#/volume] correc chris for nucleated erythrocytes in Blood by Automated counOrdered By: Estela Varma on 06-25-2023 WBC corrected for nucl RBC Auto (Bld) [#/Vol] 8.4 10*3/uL 4.1-10.5 [facility] Leukocytes [#/volume] in Blo od by Automated countOrdered By: Estela Varma on 06-25-2023 WBC (Bld) [#/Vol] 8.4 10*3/uL Normal 4.1-10.5 [facility] Comment on above: Performed By: #### C BC, MARILU, LIPASE, FE and TIBC, CEA, T4F, TSH3, YUSUF, [id number], CMP ####[facility]#### METH ####[facility] , Lipase [Enzymatic activity/v olume] in Serum or PlasmaOrdered By: Estela Varma on 06-25-2023 Lipase [Catalytic activity/Vol] 36.0 U/L Normal 11.0-82.0 [facility] Comment on above: Performed By: #### C BC, MARILU, LIPASE, FE and TIBC, CEA, T4F, TSH3, YUSUF, [id number], CMP ####[facility]#### METH ####[facility] , Lymphocytes [#/volume] in Bl ood by Automated countOrdered By: Estela Varma on 06-25-2023 Lymphocytes (Bld) [#/Vol] 0.8 10*3/uL Low 1.00-4.8 [facility] Comment on above: Performed By: #### C BC, MARILU, LIPASE, FE and TIBC, CEA, T4F, TSH3, YUSUF, [id number], CMP ####[address]#### METH ####[facility] , Lymphocytes/100 leukocytes i n Blood by Automated countOrdered By: Estela Varma on 06-25-2023 Lymphocytes/100 WBC (Bld) 9.3 % Normal . [facility] Comment on above: Performed By: #### C BC, MARILU, LIPASE, FE and TIBC, CEA, T4F, TSH3, YUSUF, [id number], CMP ####[address]#### METH ####[facility] , MCH [Entitic mass] by Automa chris countOrdered By: Estela Varma on 06-25-2023 MCH (RBC) [Entitic mass] 32.9 pg Normal 27.5-35.2 [facility] Comment on above: Performed By: #### C BC, MARILU, LIPASE, FE and TIBC, CEA, T4F, TSH3, YUSUF, [id number], CMP ####[address]#### METH ####[facility] , MCHC Auto (RBC) [Mass/Vol]Or dered By: Estela Varma on 06-25-2023 MCHC (RBC) [Mass/Vol] 33.7 g/dL 32.5-35.6 [facility] MCV [Entitic volume] by Auto mated countOrdered By: Estela Varma on 06-25-2023 MCV (RBC) [Entitic vol] 97.6 fL Normal 83.5-101 [facility] Comment on above: Performed By: #### C BC, MARILU, LIPASE, FE and TIBC, CEA, T4F, TSH3, YUSUF, [id number], CMP ####[address]#### METH ####[facility] , Methylmalonic Acidon 024 Methylmalonic Acid 115 Normal 0-378 [facility] Comment on above: Result Comment: This test was developed and its performance characteristics determined by [facility]. It has not been cleared or approved by the Food and Drug Administration. Performed at: [address] [id number] Senior Quality Control Technician: Loc De Jesus MD, Phone: [phone] PERFORMED BY: [place] [address] PATHOLOGIST CHEF BROILER OR FRY CATY DELCID M.D. Performed By: #### C BC, MARILU, LIPASE, FE and TIBC, CEA, T4F, TSH3, YUSUF, [id number], CMP ####[address]#### METH ####[facility] , Neutrophils [#/volume] in Bl ood by Automated countOrdered By: Estela Varma on 06-25-2023 Neutrophils (Bld) [#/Vol] 6.5 10*3/uL Normal 1.8-7.7 [facility] Comment on above: Performed By: #### C BC, MARILU, LIPASE, FE and TIBC, CEA, T4F, TSH3, YUSUF, [id number], CMP ####[address]#### METH ####[facility] , No Panel InformationOrdered By: Estela Varma on 06-25-2023 Estimated GFR (CKD-EPI) > 60.0 mL/Min [facility] Creatinine Clearance (Chem 108.93 [facility] Nucleated erythrocytes [Pres ence] in Blood by Automated countOrdered By: Estela Varma on 06-25-2023 Nucleated RBC Auto Ql (Bld) 0.2 /100{WBC} 0-0.5 [facility] PET tumor subq tx strat sb-m ton 06-25-2023 PET tumor subq tx [facility] [address] [place] [address] Nuclear Medicine Report Signed Patient: Kirill Echols MR#: [id number] : 1965 Acct:[id number] Age/Sex: 58 / M ADM Date: 06/25/23 Loc: Room: Type: [facility] RCR Attending Dr: Estela Varma II, DO [...] Ellison Jr., D.O.06/25/2023 10:28 AM Dictation Location: [place] [address] Transcribed By: MARU 06/25/23 1028 Dictated By: Victorino Ellison Jr, DO 06/25/23 1017 Signed By: 06/25/23 1028 Normal [facility] Platelet mean volume [Entiti c volume] in Blood by Automated countOrdered By: Estela Varma on 06-25-2023 Platelet mean volume (Bld) [Entitic vol] 7.4 fL Normal 6.6-10.1 [facility] Comment on above: Performed By: #### C BC, MARILU, LIPASE, FE and TIBC, CEA, T4F, TSH3, YUSUF, [id number], CMP ####[address]#### METH ####[facility] , Platelets [#/volume] in Bloo d by Automated countOrdered By: Estela Varma on 06-25-2023 Platelets (Bld) [#/Vol] 196 10*3/uL Normal 150-450 [facility] Comment on above: Performed By: #### C BC, MARILU, LIPASE, FE and TIBC, CEA, T4F, TSH3, YUSUF, [id number], CMP ####[address]#### METH ####[facility] , Potassium [Moles/volume] in Serum or PlasmaOrdered By: Estela Varma on 06-25-2023 Potassium [Moles/Vol] 4.2 mmol/L Normal 3.5-5.1 [facility] Comment on above: Performed By: #### C BC, MARILU, LIPASE, FE and TIBC, CEA, T4F, TSH3, YUSUF, [id number], CMP ####[address]#### METH ####[facility] , Protein [Mass/volume] in Ser um or PlasmaOrdered By: Estela Varma on 06-25-2023 Protein [Mass/Vol] 6.9 g/dL Normal 6.4-8.9 [facility] Comment on above: Performed By: #### C BC, MARILU, LIPASE, FE and TIBC, CEA, T4F, TSH3, YUSUF, [id number], CMP ####[address] [place] [address] [place]#### METH ####[facility] , Serum globulin measurement b y calculation (mass/volume)Ordered By: Estela Varma on 06-25-2023 Globulin (S) [Mass/Vol] 3.0 g/dL [facility] Comment on above: Performed By: #### C BC, MARILU, LIPASE, FE and TIBC, CEA, T4F, TSH3, YUSUF, [id number], CMP ####[address]#### METH ####[facility] , Serum or plasma albumin/glob ulin mass ratioOrdered By: Esetla Varma on 06-25-2023 Albumin/Globulin [Mass ratio] 1.3 {ratio} [facility] Comment on above: Performed By: #### C BC, MARILU, LIPASE, FE and TIBC, CEA, T4F, TSH3, YUSUF, [id number], CMP ####[address]#### METH ####[facility] , Serum or plasma anion gap de terminationOrdered By: Estela Varma on 06-25-2023 Anion gap [Moles/Vol] 11.0 mmol/L Normal 6.0-15.0 [facility] Comment on above: Performed By: #### C BC, MARILU, LIPASE, FE and TIBC, CEA, T4F, TSH3, YUSUF, [id number], CMP ####[place] [address] [place]#### METH ####[facility] , Serum or plasma carcinoembry onic antigen measurement (mass/volume)Ordered By: Estela Varma on 06-25-2023 Carcinoembryonic Ag [Mass/Vol] 9.4 ng/mL 0.0-3.0 [facility] Comment on above: Serial tumor marker results determined by assays using different manufacturers or methods may not be comparable.[facility] tail edger and method:VALENTINE UNICEL DXI, 2 SITE IMMUNOENZYMATIC SANDWICH ASSAY. Sodium [Moles/volume] in Ser um or PlasmaOrdered By: Estela Varma on 06-25-2023 Sodium [Moles/Vol] 126 mmol/L Low 136-145 [facility] Comment on above: Performed By: #### C BC, MARILU, LIPASE, FE and TIBC, CEA, T4F, TSH3, YUSUF, [id number], CMP ####[address]#### METH ####[facility] , Thyrotropin [Units/volume] i n Serum or PlasmaOrdered By: Estela Varma on 06-25-2023 TSH Qn 9.92 m[IU]/L High 0.45-5.33 [facility] Comment on above: Result Comment: PERF ORMED BY: [facility] [address] [place] [address] PATHOLOGIST CHEF BROILER OR FRY CATY DELCID M.D. Performed By: #### C BC, MARILU, LIPASE, FE and TIBC, CEA, T4F, TSH3, YUSUF, [id number], CMP ####[address]#### METH ####[facility] , Thyroxine (T4) free [Mass/vo lume] in Serum or PlasmaOrdered By: Estela Varma on 06-25-2023 Free T4 [Mass/Vol] 0.71 ng/dL Normal 0.61-1.12 [facility] Comment on above: Performed By: #### C BC, MARILU, LIPASE, FE and TIBC, CEA, T4F, TSH3, YUSUF, [id number], CMP ####[place] [address] [place]#### METH ####[facility] , Transferrin [Mass/volume] in Serum or PlasmaOrdered By: Estela Varma on 06-25-2023 Transferrin [Mass/Vol] 173 mg/dL Low 203-362 [facility] Comment on above: Performed By: #### C BC, MARILU, LIPASE, FE and TIBC, CEA, T4F, TSH3, YUSUF, [id number], CMP ####[address]#### METH ####[facility] , Urea nitrogen [Mass/volume] in Serum or PlasmaOrdered By: Estela Varma on 06-25-2023 Urea nitrogen [Mass/Vol] 5 mg/dL Low 7-25 [facility] Comment on above: Performed By: #### C BC, MARILU, LIPASE, FE and TIBC, CEA, T4F, TSH3, YUSUF, [id number], CMP ####[address]#### METH ####[facility] , Vit. B12/Folate Profileon Folate 9.6 ng/mL Normal >5.9 [facility] Comment on above: Result Comment: Estrella te reference range: >5.9 ng/ml The WHO technical consultation on folate and vitamin b12 deficiencies has determined that folate concentrations less than 4 ng/ml are considered deficient. Performed By: #### C BC, MARILU, LIPASE, FE and TIBC, CEA, T4F, TSH3, YUSUF, [id number], CMP ####[place] [address] [place]#### METH ####[facility] , Vitamin B12 ser/plasOrdered By: Estela Varma on 06-25-2023 Cobalamin (Vitamin B12) [Mass/Vol] 309 pg/mL Normal 180-914 [facility] Comment on above: Performed By: #### C BC, MARILU, LIPASE, FE and TIBC, CEA, T4F, TSH3, YUSUF, [id number], CMP ####[place] [address] [place]#### METH ####[facility] , Amylaseon 03-30-2023 Amylase [Catalytic activity/Vol] 48 U/L Normal 29-103 [facility] Comment on above: Performed By: #### C EA, CBC, FOL, B12, CMP, FE and TIBC, LIPASE, MARILU, T4F #### [address] #### METH #### [facility] , Complete Blood Count Auto Di ffon 03-30-2023 Basophils (Bld) [#/Vol] 0.0 10*3/uL Normal 0.0-0.2 [facility] Comment on above: Result Comment: PERF ORMED BY: [place] [address] PATHOLOGIST CHEF BROILER OR FRY CATY DELCID M.D. Performed By: #### C EA, CBC, FOL, B12, CMP, FE and TIBC, LIPASE, MARILU, T4F #### [address] #### METH #### [facility] , Basophils/100 WBC (Bld) 0.6 % Normal . [facility] Comment on above: Performed By: #### C EA, CBC, FOL, B12, CMP, FE and TIBC, LIPASE, MARILU, T4F #### [address] #### METH #### [facility] , Eosinophils (Bld) [#/Vol] 0.2 10*3/uL Normal 0.0-0.45 [facility] Comment on above: Performed By: #### C EA, CBC, FOL, B12, CMP, FE and TIBC, LIPASE, MARILU, T4F #### [address] #### METH #### [facility] , Eosinophils/100 WBC (Bld) 4.8 % Normal . [facility] Comment on above: Performed By: #### C EA, CBC, FOL, B12, CMP, FE and TIBC, LIPASE, MARILU, T4F #### [address] #### METH #### [facility] , Erythrocyte distribution width (RBC) [Ratio] 15.7 % High 12.0-14.8 [facility] Comment on above: Performed By: #### C EA, CBC, FOL, B12, CMP, FE and TIBC, LIPASE, MARILU, T4F #### [address] #### METH #### [facility] , Hematocrit (Bld) [Volume fraction] 39.3 % Normal 38.8-50.0 [facility] Comment on above: Performed By: #### C EA, CBC, FOL, B12, CMP, FE and TIBC, LIPASE, MARILU, T4F #### [place] [address] [place] #### METH #### [facility] , Hemoglobin (Bld) [Mass/Vol] 13.3 g/dL Normal 13.0-17.0 [facility] Comment on above: Performed By: #### C EA, CBC, FOL, B12, CMP, FE and TIBC, LIPASE, MARILU, T4F #### [address] #### METH #### [facility] , Lymphocytes (Bld) [#/Vol] 0.8 10*3/uL Low 1.00-4.8 [facility] Comment on above: Performed By: #### C EA, CBC, FOL, B12, CMP, FE and TIBC, LIPASE, MARILU, T4F #### [place] [address] [place] #### METH #### [facility] , Lymphocytes/100 WBC (Bld) 14.7 % Normal . [facility] Comment on above: Performed By: #### C EA, CBC, FOL, B12, CMP, FE and TIBC, LIPASE, MARILU, T4F #### [address] #### METH #### [facility] , MCH (RBC) [Entitic mass] 33.1 pg Normal 27.5-35.2 [facility] Comment on above: Performed By: #### C EA, CBC, FOL, B12, CMP, FE and TIBC, LIPASE, MARILU, T4F #### [address] #### METH #### [facility] , MCV (RBC) [Entitic vol] 98.1 fL Normal 83.5-101 [facility] Comment on above: Performed By: #### C EA, CBC, FOL, B12, CMP, FE and TIBC, LIPASE, MARILU, T4F #### [address] #### METH #### [facility] , Mean Corpuscular HGB Conc 33.8 g/dL Normal 32.5-35.6 [facility] Comment on above: Performed By: #### C EA, CBC, FOL, B12, CMP, FE and TIBC, LIPASE, MARILU, T4F #### [address] #### METH #### [facility] , Monocytes (Bld) [#/Vol] 0.6 10*3/uL Normal 0.0-0.8 [facility] Comment on above: Performed By: #### C EA, CBC, FOL, B12, CMP, FE and TIBC, LIPASE, MARILU, T4F #### [place] [address] [place] #### METH #### [facility] , Monocytes/100 WBC (Bld) 12.2 % Normal . [facility] Comment on above: Performed By: #### C EA, CBC, FOL, B12, CMP, FE and TIBC, LIPASE, MARILU, T4F #### [address] #### METH #### [facility] , Neutrophils (Bld) [#/Vol] 3.5 10*3/uL Normal 1.8-7.7 [facility] Comment on above: Performed By: #### C EA, CBC, FOL, B12, CMP, FE and TIBC, LIPASE, MARILU, T4F #### [address] #### METH #### [facility] , Neutrophils/100 WBC (Bld) 67.7 % Normal . [facility] Comment on above: Performed By: #### C EA, CBC, FOL, B12, CMP, FE and TIBC, LIPASE, MARILU, T4F #### [address] #### METH #### [facility] , NRBC% 0.1 /100{WBC} Normal 0-0.5 [facility] Comment on above: Performed By: #### C EA, CBC, FOL, B12, CMP, FE and TIBC, LIPASE, MARILU, T4F #### [address] #### METH #### [facility] , Platelet mean volume (Bld) [Entitic vol] 7.3 fL Normal 6.6-10.1 [facility] Comment on above: Performed By: #### C EA, CBC, FOL, B12, CMP, FE and TIBC, LIPASE, MARILU, T4F #### [place] [address] [place] #### METH #### [facility] , Platelets (Bld) [#/Vol] 155 10*3/uL Normal 150-450 [facility] Comment on above: Performed By: #### C EA, CBC, FOL, B12, CMP, FE and TIBC, LIPASE, MARILU, T4F #### [place] [address] [place] #### METH #### [facility] , RBC (Bld) [#/Vol] 4.00 10*6/uL Normal 3.90-5.60 [facility] Comment on above: Performed By: #### C EA, CBC, FOL, B12, CMP, FE and TIBC, LIPASE, MARILU, T4F #### [place] [address] [place] #### METH #### [facility] , WBC (Bld) [#/Vol] 5.2 10*3/uL Normal 4.1-10.5 [facility] Comment on above: Performed By: #### C EA, CBC, FOL, B12, CMP, FE and TIBC, LIPASE, MARILU, T4F #### [address] #### METH #### [facility] , Comprehensive Metabolic Pane nicolas 03-30-2023 Albumin [Mass/Vol] 3.9 g/dL Normal 3.5-5.7 [facility] Comment on above: Performed By: #### C EA, CBC, FOL, B12, CMP, FE and TIBC, LIPASE, MARILU, T4F #### [address] #### METH #### [facility] , Albumin/Globulin [Mass ratio] 1.3 {ratio} Normal [facility] Comment on above: Performed By: #### C EA, CBC, FOL, B12, CMP, FE and TIBC, LIPASE, MARLIU, T4F #### [place] [address] [place] #### METH #### [facility] , ALP [Catalytic activity/Vol] 136 U/L High 34-104 [facility] Comment on above: Performed By: #### C EA, CBC, FOL, B12, CMP, FE and TIBC, LIPASE, MARILU, T4F #### [place] [address] [place] #### METH #### [facility] , ALT [Catalytic activity/Vol] 11 U/L Normal 7-52 [facility] Comment on above: Performed By: #### C EA, CBC, FOL, B12, CMP, FE and TIBC, LIPASE, MARILU, T4F #### [place] [address] [place] #### METH #### [facility] , Anion gap [Moles/Vol] 10.4 mmol/L Normal 6.0-15.0 [facility] e [facility] Comment on above: Performed By: #### C EA, CBC, FOL, B12, CMP, FE and TIBC, LIPASE, MARILU, T4F #### [address] #### METH #### [facility] , AST [Catalytic activity/Vol] 18 U/L Normal 13-39 [facility] Comment on above: Performed By: #### C EA, CBC, FOL, B12, CMP, FE and TIBC, LIPASE, MARILU, T4F #### [place] [address] [place] #### METH #### [facility] , Bilirubin [Mass/Vol] 0.7 mg/dL Normal 0.3-1.0 [facility] Comment on above: Performed By: #### C EA, CBC, FOL, B12, CMP, FE and TIBC, LIPASE, MARILU, T4F #### [place] [address] [place] #### METH #### [facility] , Calcium [Mass/Vol] 8.5 mg/dL Low 8.6-10.3 [facility] Comment on above: Performed By: #### C EA, CBC, FOL, B12, CMP, FE and TIBC, LIPASE, MARILU, T4F #### [address] #### METH #### [facility] , Chloride [Moles/Vol] 102 mmol/L Normal 98-107 [facility] Comment on above: Performed By: #### C EA, CBC, FOL, B12, CMP, FE and TIBC, LIPASE, MARILU, T4F #### [address] #### METH #### [facility] , CO2 [Moles/Vol] 21.7 mmol/L Normal 21.0-31.0 [facility] Comment on above: Performed By: #### C EA, CBC, FOL, B12, CMP, FE and TIBC, LIPASE, MARILU, T4F #### [address] #### METH #### [facility] , Creatinine [Mass/Vol] 0.80 mg/dL Normal 0.70-1.30 [facility] Comment on above: Performed By: #### C EA, CBC, FOL, B12, CMP, FE and TIBC, LIPASE, MARILU, T4F #### [address] #### METH #### [facility] , Creatinine Clr Calc Pharmacy 96.47 Normal [facility] Comment on above: Performed By: #### C EA, CBC, FOL, B12, CMP, FE and TIBC, LIPASE, MARILU, T4F #### [address] #### METH #### [facility] , GFR/1.73 sq M.predicted MDRD (S/P/Bld) [Vol rate/Area] mL/min/{1.73_m2} Normal [facility] Comment on above: Performed By: #### C EA, CBC, FOL, B12, CMP, FE and TIBC, LIPASE, MARILU, T4F #### [place] [address] [place] #### METH #### [facility] , Globulin (S) [Mass/Vol] 2.9 g/dL Normal [facility] Comment on above: Performed By: #### C EA, CBC, FOL, B12, CMP, FE and TIBC, LIPASE, MARILU, T4F #### [place] [address] [place] #### METH #### [facility] , Glucose [Mass/Vol] 84 mg/dL Normal 70-100 [facility] Comment on above: Result Comment: [facility] Glucose Reference Range is dependent on time and content of last meal. Glucose of more than 200 mg/dL in a nonstressed, ambulatory subject supports the diagnosis of Diabetes Mellitus. ADA recommended reference range Performed By: #### C EA, CBC, FOL, B12, CMP, FE and TIBC, LIPASE, MARILU, T4F #### [place] [address] [place] #### METH #### [facility] , Potassium [Moles/Vol] 4.1 mmol/L Normal 3.5-5.1 [facility] Comment on above: Performed By: #### C EA, CBC, FOL, B12, CMP, FE and TIBC, LIPASE, MARILU, T4F #### [place] [address] [place] #### METH #### [facility] , Protein [Mass/Vol] 6.8 g/dL Normal 6.4-8.9 [facility] Comment on above: Performed By: #### C EA, CBC, FOL, B12, CMP, FE and TIBC, LIPASE, MARILU, T4F #### [place] [address] [place] #### METH #### [facility] , Sodium [Moles/Vol] 130 mmol/L Low 136-145 [facility] Comment on above: Performed By: #### C EA, CBC, FOL, B12, CMP, FE and TIBC, LIPASE, MARILU, T4F #### [place] [address] [place] #### METH #### [facility] , Urea nitrogen [Mass/Vol] 5 mg/dL Low 7-25 [facility] Comment on above: Performed By: #### C EA, CBC, FOL, B12, CMP, FE and TIBC, LIPASE, MARILU, T4F #### [place] [address] [place] #### METH #### [facility] , Folateon 03-30-2023 Folate 15.4 ng/mL Normal >5.9 [facility] Comment on above: Result Comment: Estrella te reference range: >5.9 ng/ml The WHO technical consultation on folate and vitamin b12 deficiencies has determined that folate concentrations less than 4 ng/ml are considered deficient. Performed By: #### C EA, CBC, FOL, B12, CMP, FE and TIBC, LIPASE, MARILU, T4F #### [place] [address] [place] #### METH #### [facility] , Free T4 (Free Thyroxine)on 05-30-2022 Free T4 [Mass/Vol] 0.50 ng/dL Low 0.61-1.12 [facility] Comment on above: Result Comment: PERF ORMED BY: [place] [address] PATHOLOGIST CHEF BROILER OR FRY CATY DELCID M.D. Performed By: #### C EA, CBC, FOL, B12, CMP, FE and TIBC, LIPASE, MARILU, T4F ####[facility] [place] [address] [place]#### METH ####[facility] , Iron and TIBC Profileon 03-14 % Iron Saturation 67.5 % High 20-50 [facility] Comment on above: Performed By: #### C EA, CBC, FOL, B12, CMP, FE and TIBC, LIPASE, MARILU, T4F #### [place] [address] [place] #### METH #### [facility] , Iron [Mass/Vol] 154 ug/dL Normal 50-212 [facility] Comment on above: Performed By: #### C EA, CBC, FOL, B12, CMP, FE and TIBC, LIPASE, MARILU, T4F #### [facility] [address] [place] [address] [place] #### METH #### [facility] , Total Iron Binding Capacity 228 ug/dL Low 255-450 [facility] Comment on above: Performed By: #### C EA, CBC, FOL, B12, CMP, FE and TIBC, LIPASE, MARILU, T4F #### [address] #### METH #### [facility] , Transferrin [Mass/Vol] 163 mg/dL Low 203-362 [facility] Comment on above: Performed By: #### C EA, CBC, FOL, B12, CMP, FE and TIBC, LIPASE, MARILU, T4F #### [place] [address] [place] #### METH #### [facility] , Lipaseon 03-30-2023 Lipase [Catalytic activity/Vol] 22.0 U/L Normal 11.0-82.0 [facility] Comment on above: Performed By: #### C EA, CBC, FOL, B12, CMP, FE and TIBC, LIPASE, MARILU, T4F #### [place] [address] [place] #### METH #### [facility] , Methylmalonic Acidon 023 Methylmalonic Acid 129 Normal 0-378 [facility] Comment on above: Result Comment: This test was developed and its performance characteristics determined by [facility]. It has not been cleared or approved by the Food and Drug Administration. Performed at: [address], [place] [id number] Senior Quality Control Technician: Loc De Jesus MD, Phone: [phone] PERFORMED BY: [place] [address] PATHOLOGIST CHEF BROILER OR FRY CATY DELCID M.D. Performed By: #### C EA, CBC, FOL, B12, CMP, FE and TIBC, LIPASE, MARILU, T4F ####[place] [id number] [address]#### METH ####[facility] , Serum or plasma methylmalona te measurement (moles/volume)Ordered By: Estela Varma on 03-30-2023 Methylmalonate [Moles/Vol] 129 nmol/L 0-378 [facility] Comment on above: This test was develo ped and its performance characteristicsdetermined by [facility]. It has not been cleared orapproved by the Food and Drug Administration.Performed at: [address] [id number] Director: Loc De Jesus MD, Phone: [phone] Vitamin B12on 03-30-2023 Cobalamin (Vitamin B12) [Mass/Vol] 462 pg/mL Normal 180-914 [facility] Comment on above: Performed By: #### C EA, CBC, FOL, B12, CMP, FE and TIBC, LIPASE, MARILU, T4F #### [address] #### METH #### [facility] , Alanine aminotransferase [En zymatic activity/volume] in Serum or PlasmaOrdered By: Estela Varma on 12-22-2022 ALT [Catalytic activity/Vol] 13 U/L Normal 7-52 [facility] Comment on above: Performed By: #### C MP, CBC ####[place] [id number] [address] Albumin [Mass/volume] in Ser um or Plasma by Bromocresol green (BCG) dye binding methoOrdered By: Estela Varma on 12-22-2022 Albumin BCG dye [Mass/Vol] 3.7 g/dL 3.5-5.7 [facility] Alkaline phosphatase [Enzyma tic activity/volume] in Serum or PlasmaOrdered By: Estela Varma on 12-22-2022 ALP [Catalytic activity/Vol] 122 U/L High 34-104 [facility] Comment on above: Performed By: #### C MP, CBC ####[address] Aspartate aminotransferase [ Enzymatic activity/volume] in Serum or PlasmaOrdered By: Estela Varma on 12-22-2022 AST [Catalytic activity/Vol] 17 U/L Normal 13-39 [facility] Comment on above: Performed By: #### C MP, CBC ####[address] Automated basophil %Ordered By: Estela Varma on 12-22-2022 Basophils/100 WBC (Bld) 1.3 % Normal . [facility] Comment on above: Performed By: #### C MP, CBC ####[place] [id number] [facility] Automated basophil countOrde red By: Estela Varma on 12-22-2022 Basophils (Bld) [#/Vol] 0.1 10*3/uL Normal 0.0-0.2 [facility] Comment on above: Result Comment: PERF ORMED BY: [facility] [address] [place] [address] PATHOLOGIST CHEF BROILER OR FRY CATY DELCID M.D. Performed By: #### C MP, CBC ####[place] [id number] [facility] Automated blood monocyte cou ntOrdered By: Estela Varma on 12-22-2022 Monocytes (Bld) [#/Vol] 0.5 10*3/uL Normal 0.0-0.8 [facility] Comment on above: Performed By: #### C MP, CBC ####[address] Automated eosinophil %Ordere d By: Estela Varma on 12-22-2022 Eosinophils/100 WBC (Bld) 5.0 % Normal . [facility] Comment on above: Performed By: #### C MP, CBC ####[address] Automated eosinophil countOr dered By: Estela Varma on 12-22-2022 Eosinophils (Bld) [#/Vol] 0.3 10*3/uL Normal 0.0-0.45 [facility] Comment on above: Performed By: #### C MP, CBC ####[address] Automated monocyte %Ordered By: Estela Varma on 12-22-2022 Monocytes/100 WBC (Bld) 7.8 % Normal . [facility] Comment on above: Performed By: #### C MP, CBC ####[address] Automated neutrophil %Ordere d By: Estela Varma on 12-22-2022 Neutrophils/100 WBC (Bld) 70.2 % Normal . [facility] Comment on above: Performed By: #### C MP, CBC ####[address] Bilirubin.total [Mass/volume ] in Serum or PlasmaOrdered By: Estela Varma on 12-22-2022 Bilirubin [Mass/Vol] 0.5 mg/dL Normal 0.3-1.0 [facility] Comment on above: Performed By: #### C MP, CBC ####[place] [id number] [facility] Calcium [Mass/volume] in Ser um or PlasmaOrdered By: Estela Varma on 12-22-2022 Calcium [Mass/Vol] 8.0 mg/dL Low 8.6-10.3 [facility] Comment on above: Performed By: #### C MP, CBC ####[place] [id number] [facility] Capillary blood glucose ledy urement by glucometer (mass/volume)Ordered By: Estela Varma on 12-22-2022 Glucose [Mass/Vol] 71 mg/dL Normal [facility] Comment on above: Random Glucose Refer ence Range is dependent on time and content of last meal. Glucose of more than 200 mg/dL in a nonstressed, ambulatory subject supports the diagnosis of Diabetes Mellitus. Result Comment: [place] om Glucose Reference Range is dependent on time and content of last meal. Glucose of more than 200 mg/dL in a nonstressed, ambulatory subject supports the diagnosis of Diabetes Mellitus. PERFORMED BY: [facility] [address] [place] [id number] PATHOLOGIST CHEF BROILER OR FRY CATY DELCID M.D. Performed By: #### G TERRY #### Point of Care testing , Carbon dioxide, total [Moles /volume] in Serum or PlasmaOrdered By: Estela Varma on 12-22-2022 CO2 [Moles/Vol] 23.2 mmol/L Normal 21.0-31.0 [facility] Comment on above: Performed By: #### C MP, CBC ####[place] [id number] [facility] Chloride [Moles/volume] in S coral or PlasmaOrdered By: Estela Varma on 12-22-2022 Chloride [Moles/Vol] 100 mmol/L Normal 98-107 [facility] Comment on above: Performed By: #### C MP, CBC ####[place] [id number] [facility] Complete Blood Count Auto Di ffon 12-22-2022 Mean Corpuscular HGB Conc 33.5 g/dL Normal 32.5-35.6 [facility] Comment on above: Performed By: #### C MP, CBC ####[place] [id number] [facility] NRBC% 0.0 /100{WBC} Normal 0-0.5 [facility] Comment on above: Performed By: #### C MP, CBC ####[place] [id number] [facility] Comprehensive Metabolic Pane nicolas 12-22-2022 Albumin [Mass/Vol] 3.7 g/dL Normal 3.5-5.7 [facility] Comment on above: Performed By: #### C MP, CBC ####[place] [id number] [facility] Creatinine Clr Calc Pharmacy 114.05 Normal [facility] Comment on above: Result Comment: PERF ORMED BY: [facility] [address] [place] [id number] PATHOLOGIST CHEF BROILER OR FRY CATY DELCID M.D. Performed By: #### C MP, CBC ####[address] GFR/1.73 sq M.predicted MDRD (S/P/Bld) [Vol rate/Area] mL/min/{1.73_m2} Normal [facility] Comment on above: Performed By: #### C MP, CBC ####[address] Creatinine [Mass/volume] in Serum or PlasmaOrdered By: Estela Varma on 12-22-2022 Creatinine [Mass/Vol] 0.69 mg/dL Low 0.70-1.30 [facility] Comment on above: Performed By: #### C MP, CBC ####[address] Erythrocyte distribution wid th [Ratio] by Automated countOrdered By: Estela Varma on 12-22-2022 Erythrocyte distribution width (RBC) [Ratio] 16.0 % High 12.0-14.8 [facility] Comment on above: Performed By: #### C MP, CBC ####[address] Erythrocytes [#/volume] in B lood by Automated countOrdered By: Estela Varma on 12-22-2022 RBC (Bld) [#/Vol] 4.17 10*6/uL Normal 3.90-5.60 [facility] Comment on above: Performed By: #### C MP, CBC ####[place] [id number] [place] [id number] [facility] Glucose [Mass/volume] in Ser um or PlasmaOrdered By: Estela Varma on 12-22-2022 Glucose [Mass/Vol] 65 mg/dL Low 70-100 [facility] Comment on above: ADA recommended refe rence rangeRandom Glucose Reference Range is dependent on time and content of last meal. Glucose of more than 200 mg/dL in a nonstressed, ambulatory subject supports the diagnosis of Diabetes Mellitus. Result Comment: [place] om Glucose Reference Range is dependent on time and content of last meal. Glucose of more than 200 mg/dL in a nonstressed, ambulatory subject supports the diagnosis of Diabetes Mellitus. ADA recommended reference range Performed By: #### C MP, CBC ####[address] Hematocrit [Volume Fraction] of Blood by Automated countOrdered By: Estela Varma on 12-22-2022 Hematocrit (Bld) [Volume fraction] 39.6 % Normal 38.8-50.0 [facility] Comment on above: Performed By: #### C MP, CBC ####[address] Hemoglobin [Mass/volume] in BloodOrdered By: Estela Varma on 12-22-2022 Hemoglobin (Bld) [Mass/Vol] 13.3 g/dL Normal 13.0-17.0 [facility] Comment on above: Performed By: #### C MP, CBC ####[address] Leukocytes [#/volume] correc chris for nucleated erythrocytes in Blood by Automated counOrdered By: Estela Varma on 12-22-2022 WBC corrected for nucl RBC Auto (Bld) [#/Vol] 6.0 10*3/uL 4.1-10.5 [facility] Leukocytes [#/volume] in Blo od by Automated countOrdered By: Estela Varma on 12-22-2022 WBC (Bld) [#/Vol] 6.0 10*3/uL Normal 4.1-10.5 [facility] Comment on above: Performed By: #### C MP, CBC ####[facility] [id number] [place] [address] Lymphocytes [#/volume] in Bl ood by Automated countOrdered By: Estela Varma on 12-22-2022 Lymphocytes (Bld) [#/Vol] 0.9 10*3/uL Low 1.00-4.8 [facility] Comment on above: Performed By: #### C MP, CBC ####[address] Lymphocytes/100 leukocytes i n Blood by Automated countOrdered By: Estela Varma on 12-22-2022 Lymphocytes/100 WBC (Bld) 15.7 % Normal . [facility] Comment on above: Performed By: #### C MP, CBC ####[address] MCH [Entitic mass] by Automa chris countOrdered By: Estela Varma on 12-22-2022 MCH (RBC) [Entitic mass] 31.9 pg Normal 27.5-35.2 [facility] Comment on above: Performed By: #### C MP, CBC ####[facility] [id number] [place] [address] MCHC Auto (RBC) [Mass/Vol]Or dered By: Estela Varma on 12-22-2022 MCHC (RBC) [Mass/Vol] 33.5 g/dL 32.5-35.6 [facility] MCV [Entitic volume] by Auto mated countOrdered By: Estela Varma on 12-22-2022 MCV (RBC) [Entitic vol] 95.0 fL Normal 83.5-101 [facility] Comment on above: Performed By: #### C MP, CBC ####[address] Neutrophils [#/volume] in Bl ood by Automated countOrdered By: Estela Varma on 12-22-2022 Neutrophils (Bld) [#/Vol] 4.2 10*3/uL Normal 1.8-7.7 [facility] Comment on above: Performed By: #### C MP, CBC ####[facility] [id number] No Panel InformationOrdered By: Estela Varma on 12-22-2022 Estimated GFR (CKD-EPI) > 60.0 mL/Min [facility] Creatinine Clearance (Chem 114.05 [facility] Nucleated erythrocytes [Pres ence] in Blood by Automated countOrdered By: Estela Varma on 12-22-2022 Nucleated RBC Auto Ql (Bld) 0.0 /100{WBC} 0-0.5 [facility] PET tumor subq tx strat sb-m ton 12-22-2022 PET tumor subq tx strat sb-mt [facility] [address] [place] [address] Nuclear Medicine Report Signed Patient: Kirill Echols MR#: [id number] : 1965 Acct:[id number] Age/Sex: 57 / M ADM Date: 12/22/22 Loc: Room: Type: [facility] Attending Dr: Estela Varma II DO [...] Ellison Jr., DSesarOSesar12/22/2022 11:42 AM Dictation Location: [place] [address] Transcribed By: [facility] 12/22/22 1142 Dictated By: Victorino Ellison Jr, DO 12/22/22 1135 Signed By: 12/22/22 1142 Normal [facility] Platelet mean volume [Entiti c volume] in Blood by Automated countOrdered By: Estela Varma on 12-22-2022 Platelet mean volume (Bld) [Entitic vol] 6.9 fL Normal 6.6-10.1 [facility] Comment on above: Performed By: #### C MP, CBC ####[place] [address] [place] [address] [facility] Platelets [#/volume] in Bloo d by Automated countOrdered By: Estela Varma on 12-22-2022 Platelets (Bld) [#/Vol] 177 10*3/uL Normal 150-450 [facility] Comment on above: Performed By: #### C MP, CBC ####[address] [address] [place] Potassium [Moles/volume] in Serum or PlasmaOrdered By: Estela Varma on 12-22-2022 Potassium [Moles/Vol] 4.2 mmol/L Normal 3.5-5.1 [facility] Comment on above: Performed By: #### C MP, CBC ####[address] [address] [place] Protein [Mass/volume] in Ser um or PlasmaOrdered By: Estela Varma on 12-22-2022 Protein [Mass/Vol] 6.0 g/dL Low 6.4-8.9 [facility] Comment on above: Performed By: #### C MP, CBC ####[address] [address] [facility] Serum globulin measurement b y calculation (mass/volume)Ordered By: Estela Varma on 12-22-2022 Globulin (S) [Mass/Vol] 2.3 g/dL [facility] Comment on above: Performed By: #### C MP, CBC ####[address] Serum or plasma albumin/glob ulin mass ratioOrdered By: Estela Varma on 12-22-2022 Albumin/Globulin [Mass ratio] 1.6 {ratio} [facility] Comment on above: Performed By: #### C MP, CBC ####[address] Serum or plasma anion gap de terminationOrdered By: Estela Varma on 12-22-2022 Anion gap [Moles/Vol] 8.0 mmol/L Normal 6.0-15.0 [facility] Comment on above: Performed By: #### C MP, CBC ####[address] Sodium [Moles/volume] in Ser um or PlasmaOrdered By: Estela Varma on 12-22-2022 Sodium [Moles/Vol] 127 mmol/L Low 136-145 [facility] Comment on above: Performed By: #### C MP, CBC ####[place] [id number] [facility] Urea nitrogen [Mass/volume] in Serum or PlasmaOrdered By: Estela Varma on 12-22-2022 Urea nitrogen [Mass/Vol] 6 mg/dL Low 7-25 [facility] Comment on above: Performed By: #### C MP, CBC ####[place] [id number] [facility] Alanine aminotransferase [En zymatic activity/volume] in Serum or PlasmaOrdered By: Estela Varma on 10-26-2022 ALT [Catalytic activity/Vol] 12 U/L 7-52 [facility] Albumin [Mass/volume] in Ser um or Plasma by Bromocresol green (BCG) dye binding methoOrdered By: Estela Varma on 10-26-2022 Albumin BCG dye [Mass/Vol] 3.9 g/dL 3.5-5.7 [facility] Alkaline phosphatase [Enzyma tic activity/volume] in Serum or PlasmaOrdered By: Estela Varma on 10-26-2022 ALP [Catalytic activity/Vol] 140 U/L 34-104 [facility] Aspartate aminotransferase [ Enzymatic activity/volume] in Serum or PlasmaOrdered By: Estela Varma on 10-26-2022 AST [Catalytic activity/Vol] 16 U/L 13-39 [facility] Basophils Auto (Bld) [#/Vol] Ordered By: Estela Varma on 10-26-2022 Basophils (Bld) [#/Vol] 0.0 10*3/uL 0.0-0.2 [facility] Basophils/100 WBC Auto (Bld) Ordered By: Estela Varma on 10-26-2022 Basophils/100 WBC (Bld) 0.8 % . [facility] Bilirubin.total [Mass/volume ] in Serum or PlasmaOrdered By: Estela Varma on 10-26-2022 Bilirubin [Mass/Vol] 0.6 mg/dL 0.3-1.0 [facility] Calcium [Mass/volume] in Ser um or PlasmaOrdered By: Estela Varma on 10-26-2022 Calcium [Mass/Vol] 8.3 mg/dL 8.6-10.3 [facility] Carbon dioxide, total [Moles /volume] in Serum or PlasmaOrdered By: Estela Varma on 10-26-2022 CO2 [Moles/Vol] 23.5 mmol/L 21.0-31.0 [facility] Chloride [Moles/volume] in S coral or PlasmaOrdered By: Estela Varma on 10-26-2022 Chloride [Moles/Vol] 98 mmol/L 98-107 [facility] Creatinine [Mass/volume] in Serum or PlasmaOrdered By: Estela Varma on 10-26-2022 Creatinine [Mass/Vol] 0.67 mg/dL 0.70-1.30 [facility] Eosinophils Auto (Bld) [#/Vo l]Ordered By: Estela Varma on 10-26-2022 Eosinophils (Bld) [#/Vol] 0.1 10*3/uL 0.0-0.45 [facility] Eosinophils/100 WBC Auto (Bl d)Ordered By: Estela Varma on 10-26-2022 Eosinophils/100 WBC (Bld) 2.6 % . [facility] Erythrocyte distribution wid th Auto (RBC) [Ratio]Ordered By: Estela Varma on 10-26-2022 Erythrocyte distribution width (RBC) [Ratio] 15.0 % 12.0-14.8 [facility] Erythrocyte sedimentation ra te by Photometric methodOrdered By: Estela Varma on 10-26-2022 ESR Photometric method (Bld) [Velocity] 16 mm/hr 0-19 [facility] Ferritin [Mass/volume] in Se rum or PlasmaOrdered By: Estela Varma on 10-26-2022 Ferritin [Mass/Vol] 225.5 ng/mL 23.9-336.2 [facility] Folate [Mass/volume] in Seru m or PlasmaOrdered By: Estela Varma on 10-26-2022 Folate [Mass/Vol] 4.9 ng/mL >5.9 [facility] Comment on above: Folate reference ran ge: >5.9 ng/mlThe WHO technical consultation on folate and vitamin [id number] has determined that folate concentrations lessthan 4 ng/ml are considered deficient. Globulin Calc (S) [Mass/Vol] Ordered By: Estela Varma on 10-26-2022 Globulin (S) [Mass/Vol] 2.8 g/dL [facility] Glucose [Mass/volume] in Ser um or PlasmaOrdered By: Estela Varma on 10-26-2022 Glucose [Mass/Vol] 66 mg/dL 70-100 [facility] Comment on above: ADA recommended refe rence rangeRandom Glucose Reference Range is dependent on time and content of last meal. Glucose of more than 200 mg/dL in a nonstressed, ambulatory subject supports the diagnosis of Diabetes Mellitus. Hematocrit Auto (Bld) [Volum e fraction]Ordered By: Estela Varma on 10-26-2022 Hematocrit (Bld) [Volume fraction] 39.7 % 38.8-50.0 [facility] Hemoglobin [Mass/volume] in BloodOrdered By: Estela Vamra on 10-26-2022 Hemoglobin (Bld) [Mass/Vol] 13.6 g/dL 13.0-17.0 [facility] Iron [Mass/volume] in Serum or PlasmaOrdered By: Estela Varma on 10-26-2022 Iron [Mass/Vol] 103 ug/dL 50-212 [facility] Iron binding capacity [Mass/ volume] in Serum or PlasmaOrdered By: Estela Varma on 10-26-2022 Iron binding capacity [Mass/Vol] 269 ug/dL 255-450 [facility] Iron saturation [Mass Fracti on] in Serum or PlasmaOrdered By: Estela Varma on 10-26-2022 Iron saturation [Mass fraction] 38.3 % 20-50 [facility] Leukocytes [#/volume] correc chris for nucleated erythrocytes in Blood by Automated counOrdered By: Estela Varma on 10-26-2022 WBC corrected for nucl RBC Auto (Bld) [#/Vol] 5.8 10*3/uL 4.1-10.5 [facility] Lymphocytes Auto (Bld) [#/Vo l]Ordered By: Estela Varma on 10-26-2022 Lymphocytes (Bld) [#/Vol] 0.9 10*3/uL 1.00-4.8 [facility] Lymphocytes/100 WBC Auto (Bl d)Ordered By: Estela Varma on 10-26-2022 Lymphocytes/100 WBC (Bld) 15.0 % . [facility] MCH Auto (RBC) [Entitic mass ]Ordered By: Estela Varma on 10-26-2022 MCH (RBC) [Entitic mass] 32.6 pg 27.5-35.2 [facility] MCHC Auto (RBC) [Mass/Vol]Or dered By: Estela Varma on 10-26-2022 MCHC (RBC) [Mass/Vol] 34.2 g/dL 32.5-35.6 [facility] MCV Auto (RBC) [Entitic vol] Ordered By: Estela Varma on 10-26-2022 MCV (RBC) [Entitic vol] 95.2 fL 83.5-101 [facility] Monocytes Auto (Bld) [#/Vol] Ordered By: Estela Varma on 10-26-2022 Monocytes (Bld) [#/Vol] 0.7 10*3/uL 0.0-0.8 [facility] Monocytes/100 WBC Auto (Bld) Ordered By: Estela Varma on 10-26-2022 Monocytes/100 WBC (Bld) 12.1 % . [facility] Neutrophils Auto (Bld) [#/Vo l]Ordered By: Estela Varma on 10-26-2022 Neutrophils (Bld) [#/Vol] 4.1 10*3/uL 1.8-7.7 [facility] Neutrophils/100 WBC Auto (Bl d)Ordered By: Estela Varma on 10-26-2022 Neutrophils/100 WBC (Bld) 69.5 % . [facility] No Panel InformationOrdered By: Estela Varma on 10-26-2022 Estimated GFR (CKD-EPI) > 60.0 mL/Min [facility] Creatinine Clearance (Chem 121.12 [facility] Nucleated erythrocytes [Pres ence] in Blood by Automated countOrdered By: Estela Varma on 10-26-2022 Nucleated RBC Auto Ql (Bld) 0.2 /100{WBC} 0-0.5 [facility] Platelet mean volume Auto (B ld) [Entitic vol]Ordered By: Estela Varma on 10-26-2022 Platelet mean volume (Bld) [Entitic vol] 6.7 fL 6.6-10.1 [facility] Platelets Auto (Bld) [#/Vol] Ordered By: Estela Varma on 10-26-2022 Platelets (Bld) [#/Vol] 227 10*3/uL 150-450 [facility] Potassium [Moles/volume] in Serum or PlasmaOrdered By: Estela Varma on 10-26-2022 Potassium [Moles/Vol] 4.1 mmol/L 3.5-5.1 [facility] Protein [Mass/volume] in Ser um or PlasmaOrdered By: Estela Varma on 10-26-2022 Protein [Mass/Vol] 6.7 g/dL 6.4-8.9 [facility] RBC Auto (Bld) [#/Vol]Ordere d By: Estela Varma on 10-26-2022 RBC (Bld) [#/Vol] 4.17 10*6/uL 3.90-5.60 [facility] Serum or plasma albumin/glob ulin mass ratioOrdered By: Estela Varma on 10-26-2022 Albumin/Globulin [Mass ratio] 1.4 {ratio} [facility] Serum or plasma anion gap de terminationOrdered By: Estela Varma on 10-26-2022 Anion gap [Moles/Vol] 11.6 mmol/L 6.0-15.0 [facility] Serum or plasma carcinoembry onic antigen measurement (mass/volume)Ordered By: Estela Varma on 10-26-2022 Carcinoembryonic Ag [Mass/Vol] 8.0 ng/mL 0.0-3.0 [facility] Serum or plasma erythropoiet in (EPO) measurement (units/volume)Ordered By: Estela Varma on 10-26-2022 Erythropoietin (EPO) Qn 15.7 mIU/mL 2.6-18.5 [facility] Comment on above: [employer] DxI 800 Immunoassay SystemValues obtained with different assay methods or kits cannotbe used interchangeably. Results cannot be interpreted asabsolute evidence of the presence or absence of malignantdisease.Performed at: [facility] [employer] [id number] Director: Fernando Brand PhD, Phone: [phone] Sodium [Moles/volume] in Ser um or PlasmaOrdered By: Estela Varma on 10-26-2022 Sodium [Moles/Vol] 129 mmol/L 136-145 [facility] Transferrin [Mass/volume] in Serum or PlasmaOrdered By: Estela Varma on 10-26-2022 Transferrin [Mass/Vol] 192 mg/dL 203-362 [facility] Urea nitrogen [Mass/volume] in Serum or PlasmaOrdered By: Estela Varma on 10-26-2022 Urea nitrogen [Mass/Vol] 8 mg/dL 7-25 [facility] Vitamin B12 ser/plasOrdered By: Estela Varma on 10-26-2022 Cobalamin (Vitamin B12) [Mass/Vol] 252 pg/mL 180-914 [facility] WBC Auto (Bld) [#/Vol]Ordere d By: Estela Varma on 10-26-2022 WBC (Bld) [#/Vol] 5.8 10*3/uL 4.1-10.5 [facility] CYTOLOGYon 10-03-2022 SENT TO REF LAB 10/04/2022 Normal [facility] Comment on above: Performed By: #### C YTO #### [facility] [address] [address] [address] Sushant Pradhan CULTURE STERILE BODY FLUIDon 09-11-2022 CULTURE STERILE BODY FLUID Culture Observations: NO GROWTH AT 72 HRS [facility] Comment on above: Performed By: #### C MREP #### [facility] [address] [place] [address] [address] Sushant Pradhan CULTURE STERILE BODY FLUIDon 09-08-2022 CULTURE STERILE BODY FLUID Culture Observations: NO GROWTH AT 72 HOURS. [facility] Comment on above: Performed By: #### C MREP #### [facility] [address] [place] [address] [address] Sushant Pradhan CULTURE STERILE BODY FLUIDon 09-04-2022 CULTURE STERILE BODY FLUID Culture Observations: NO GROWTH AT 72 HOURS. [facility] Comment on above: Performed By: #### C MREP #### [facility] [address] [place] [address] [address] Sushant Pradhan XR RIBS LT PA [...] JESSE RAMOS Date: 2022-09-01 11:46 Normal [facility] CBC AUTO DIFFon 08-27-2022 BASO # 0.0 103/ul Normal 0.0-0.1 [facility] Comment on above: Performed By: #### C BC #### [facility] [address] [place] [address] [address] Sushant Pradhan Basophils/100 WBC (Bld) 0.3 % Normal 0.2-2.0 [facility] Comment on above: Performed By: #### C BC #### [facility] [address] [place] [address] [address] Sushant Pradhan EO # 0.2 103/ul Normal 0.0-0.7 [facility] Comment on above: Performed By: #### C BC #### [facility] [address] [place] [address] [address] Sushant Pradhan Eosinophils/100 WBC (Bld) 3.0 % Normal 0.9-7.0 [facility] Comment on above: Performed By: #### C BC #### [facility] [address] [place] [address] [address] Sushant Pradhan Erythrocyte distribution width (RBC) [Ratio] 16.5 % Critically high 11.0-15.0 [facility] Comment on above: Performed By: #### C BC #### [facility] [address] [place] [address] [address] Sushant Pradhan Hematocrit (Bld) [Volume fraction] 38.4 % Critically low 42.0-54.0 [facility] Comment on above: Performed By: #### C BC #### [facility] [address] [place] [address] [address] Sushant Pradhan Hemoglobin (Bld) [Mass/Vol] 13.9 g/dL Critically low 14.0-18.0 [facility] Comment on above: Performed By: #### C BC #### [facility] [address] [place] [address] [address] Sushant Pradhan IG # 0.01 10e3/ul Normal 0.00-0.03 [facility] Comment on above: Performed By: #### C BC #### [facility] [address] [place] [address] Dr. Sushant Pradhan IG % 0.2 % Normal 0.0-0.5 [facility] Comment on above: Performed By: #### C BC #### [facility] [address] [place] [address] Dr. Sushant Pradhan LYMPH # 1.0 103/ul Critically low 1.2-3.8 [facility] Comment on above: Performed By: #### C BC #### [facility] [address] [place] [address] Dr. Sushant Pradhan Lymphocytes/100 WBC (Bld) 15.8 % Critically low 20.5-60.0 [facility] Comment on above: Performed By: #### C BC #### [facility] [address] [place] [address] Dr. Sushant Pradhan MANUAL DIFF REQ NO Normal [facility] Comment on above: Performed By: #### C BC #### [facility] [address] [place] [address] Dr. Sushant Pradhan MCH (RBC) [Entitic mass] 32.8 pg Normal 25.9-34.0 [facility] Comment on above: Performed By: #### C BC #### [facility] [address] [place] [address] Dr. Sushant Pradhan MCHC (RBC) [Mass/Vol] 36.2 g/dL Critically high 29.9-35.2 [facility] Comment on above: Performed By: #### C BC #### [facility] [address] [place] [address] [address] Sushant Pradhan MCV (RBC) [Entitic vol] 90.6 fL Normal 80.0-94.0 [facility] Comment on above: Performed By: #### C BC #### [facility] [address] [address] [address] Sushant Pradhan MONO # 0.8 103/ul Normal 0.3-0.8 [facility] Comment on above: Performed By: #### C BC #### [facility] [address] [address] [address] Sushant Pradhan Monocytes/100 WBC (Bld) 12.6 % Critically high 1.7-12.0 [facility] Comment on above: Performed By: #### C BC #### [facility] [address] [place] [address] [address] Sushant Pradhan NEUT # 4.3 103/ul Normal 1.4-6.5 [facility] Comment on above: Performed By: #### C BC #### [facility] [address] [address] [address] Sushant Pradhan Neutrophils/100 WBC (Bld) 68.1 % Normal 43.0-75.0 [facility] Comment on above: Performed By: #### C BC #### [facility] [address] [address] [address] Susahnt Pradhan Platelet mean volume (Bld) [Entitic vol] 9.0 fL Critically low 9.5-13.5 [facility] Comment on above: Performed By: #### C BC #### [facility] [address] [address] [address] Sushant Pradhan PLT 192 103/ul Normal 150-450 [facility] Comment on above: Performed By: #### C BC #### [facility] [address], [place] [address] Dr. Sushant Pradhan RBC 4.24 106/ul Critically low 4.70-6.10 [facility] Comment on above: Performed By: #### C BC #### [facility] [address], [place] [address] Dr. Sushant Pradhan WBC 6.3 103/ul Normal 4.0-11.0 [facility] Comment on above: Performed By: #### C BC #### [facility] [address], [place] [address] CHEST W CONon [...] by: MARCE SHAY Date: 2022-08-27 12:[address] [facility] LACTATE/LACTIC ACIDon 2022 Lactate [Moles/Vol] 1.8 mmol/L Normal 0.4-2.0 [facility] Comment on above: Performed By: #### C MREP #### [facility] [address] [place] [address] Dr. Sushant Pradhan PROF 14(COMP METB)on 023 Albumin [Mass/Vol] 3.2 g/dL Critically low 3.4-5.0 [facility] Comment on above: Performed By: #### C BC #### [facility] [address] [place] [address] Dr. Sushant Pradhan Albumin/Globulin [Mass ratio] 0.7 {ratio} Normal [facility] Comment on above: Performed By: #### C BC #### [facility] [address] [place] [address] Dr. Sushant Pradhan ALP [Catalytic activity/Vol] 207 U/L Critically high 46-116 [facility] Comment on above: Performed By: #### C BC #### [facility] [address] [place] [address] Dr. Sushant Pradhan ALT [Catalytic activity/Vol] 22 U/L Normal 16-63 [facility] Comment on above: Performed By: #### C BC #### [facility] [address] [place] [address] Dr. Sushant Pradhan Anion gap [Moles/Vol] 11.9 mmol/L Normal [facility] Comment on above: Performed By: #### C BC #### [facility] [address] [address] [address] Sushant Pradhan AST [Catalytic activity/Vol] 23 U/L Normal 15-37 [facility] Comment on above: Performed By: #### C BC #### [facility] [address] [address] [address] Sushant Pradhan Bilirubin [Mass/Vol] 0.4 mg/dL Normal 0.2-1.0 [facility] Comment on above: Performed By: #### C BC #### [facility] [address] [address] [address] Sushant Pradhan Calcium [Mass/Vol] 9.2 mg/dL Normal 8.5-10.1 [facility] Comment on above: Performed By: #### C BC #### [facility] [address] [address] [address] Sushant Pradhan Chloride [Moles/Vol] 97 mmol/L Critically low 98-107 [facility] Comment on above: Performed By: #### C BC #### [facility] [address] [address] [address] Sushant Pradhan CO2 [Moles/Vol] 28.1 mmol/L Normal 21.0-32.0 [facility] Comment on above: Performed By: #### C BC #### [facility] [address] [address] [address] Sushant Pradhan Creatinine [Mass/Vol] 0.86 mg/dL Normal 0.70-1.30 [facility] Comment on above: Performed By: #### C BC #### [facility] [address] [address] [address] Sushant Pradhan EGFR-AF ZIMBABWEAN >60 Normal >=60 [facility] Comment on above: Performed By: #### C BC #### [facility] [id number] Sushant Pradhan EGFR-NON AF ZIMBABWEAN >60 Normal >=60 [facility] Comment on above: Performed By: #### C BC #### [facility] [address] [address] [address] Sushant Pradhan Globulin (S) [Mass/Vol] 4.8 g/dL Normal [facility] Comment on above: Performed By: #### C BC #### [facility] [address] [address] [address] Sushant Pradhan Glucose [Mass/Vol] 104 mg/dL Normal 74-106 [facility] Comment on above: Performed By: #### C BC #### [facility] [address] [address] [address] Sushant Pradhan Potassium [Moles/Vol] 4.0 mmol/L Normal 3.5-5.1 [facility] Comment on above: Performed By: #### C BC #### [facility] [address] [place] [address] Dr. Sushant Pradhan Protein [Mass/Vol] 8.0 g/dL Normal 6.4-8.2 [facility] Comment on above: Performed By: #### C BC #### [facility] [address] [place] [address] Dr. Sushant Pradhan Sodium [Moles/Vol] 133 mmol/L Critically low 136-145 [facility] [place] [facility] Comment on above: Performed By: #### C BC #### [facility] [address] [place] [address] Dr. Sushant Pradhan Urea nitrogen [Mass/Vol] 6.0 mg/dL Critically low 7.0-18.0 [facility] Comment on above: Performed By: #### C BC #### [facility] [address] [place] [address] Dr. Sushant Pradhan Urea nitrogen/Creatinine [Mass ratio] 7.0 mg/mg Normal [facility] Comment on above: Performed By: #### C BC #### [facility] [address] [place] [address] Dr. Sushant Pradhan TROPONIN, HIGH SENSITIVITYon 08-27-2022 HSTROP 5.6 pg/mL Normal 4.0-76.1 [facility] Comment on above: Result Comment: CUT- OFF POINTS HAVE BEEN ESTABLISHED BASED ON THE FOURTH UNIVERSAL DEFINITIONS OF MYOCARDIAL INFARCTION. THE UPPER REFERENCE LIMIT (URL) OF TROPONIN, DEFINED THE 99TH PERCENTILE OF cTnI DISTRIBUTION IN A REFERENCE POPULATION, HAS BEEN CONFIRMED THE DECISION THRESHOLD FOR [place] DIAGNOSIS. Performed By: #### C BC #### [facility] [address] [place] [address] Dr. Sushant Pradhan HSTROP 5.8 pg/mL Normal 4.0-76.1 [facility] Comment on above: Result Comment: CUT- OFF POINTS HAVE BEEN ESTABLISHED BASED ON THE FOURTH UNIVERSAL DEFINITIONS OF MYOCARDIAL INFARCTION. THE UPPER REFERENCE LIMIT (URL) OF TROPONIN, DEFINED THE 99TH PERCENTILE OF cTnI DISTRIBUTION IN A REFERENCE POPULATION, HAS BEEN CONFIRMED THE DECISION THRESHOLD FOR [place] DIAGNOSIS. Performed By: #### C BC #### [facility] [address] [place] [address] Dr. Sushant Pradhan CARDIAC SONIA ADMITon 023 CK [Catalytic activity/Vol] 68 U/L Normal 39-308 [facility] Comment on above: Performed By: #### C MREP #### [facility] [address] [place] [address] Dr. Sushant Pradhan CK.MB [Mass/Vol] 1.23 ng/mL Normal <=3.60 [facility] Comment on above: Performed By: #### C MREP #### [facility] [address] [place] [address] Dr. Sushant Pradhan HSTROP 7.1 pg/mL Normal 4.0-76.1 [facility] Comment on above: Result Comment: CUT- OFF POINTS HAVE BEEN ESTABLISHED BASED ON THE [facility] UNIVERSAL DEFINITIONS OF MYOCARDIAL INFARCTION. THE UPPER REFERENCE LIMIT (URL) OF TROPONIN, DEFINED THE 99TH PERCENTILE OF cTnI DISTRIBUTION IN A REFERENCE POPULATION, HAS BEEN CONFIRMED THE DECISION THRESHOLD FOR [place] DIAGNOSIS. Performed By: #### C MREP #### [facility] [address] [place] [address] Dr. Sushant Pradhan DILAN 32 ng/mL Normal 16-96 [facility] Comment on above: Performed By: #### C MREP #### [facility] [address] [place] [address] Dr. Sushant Pradhan CBC AUTO DIFFon 06-18-2022 BASO # 0.0 103/ul Normal 0.0-0.1 [facility] Comment on above: Performed By: #### C BC #### [facility] [address] [place] [address] Dr. Sushant Pradhan Basophils/100 WBC (Bld) 0.5 % Normal 0.2-2.0 [facility] Comment on above: Performed By: #### C BC #### [facility] [address] [place] [address] Dr. Sushant Pradhan EO # 0.3 103/ul Normal 0.0-0.7 [facility] Comment on above: Performed By: #### C BC #### [facility] [address] [place] [address] Dr. Sushant Pradhan Eosinophils/100 WBC (Bld) 4.5 % Normal 0.9-7.0 [facility] Comment on above: Performed By: #### C BC #### [facility] [address] [place] [address] Dr. Sushant Pradhan Erythrocyte distribution width (RBC) [Ratio] 15.8 % Critically high 11.0-15.0 [facility] Comment on above: Performed By: #### C BC #### [facility] [address] [place] [address] Dr. Sushant Pradhan Hematocrit (Bld) [Volume fraction] 37.3 % Critically low 42.0-54.0 [facility] Comment on above: Performed By: #### C BC #### [facility] [address] [place] [address] Dr. Sushant Pradhan Hemoglobin (Bld) [Mass/Vol] 13.0 g/dL Critically low 14.0-18.0 [facility] Comment on above: Performed By: #### C BC #### [facility] [address] [place] [address] Dr. Sushant Pradhan IG # 0.02 10e3/ul Normal 0.00-0.03 [facility] Comment on above: Performed By: #### C BC #### [facility] [address] [place] [address] Dr. Sushant Pradhan IG % 0.3 % Normal 0.0-0.5 [facility] Comment on above: Performed By: #### C BC #### [facility] [address] [place] [address] Dr. Sushant Pradhan LYMPH # 0.8 103/ul Critically low 1.2-3.8 [facility] Comment on above: Performed By: #### C BC #### [facility] [address] [place] [address] Dr. Sushant Pradhan Lymphocytes/100 WBC (Bld) 13.9 % Critically low 20.5-60.0 [facility] Comment on above: Performed By: #### C BC #### [facility] [address] [place] [address] Dr. Sushant Pradhan MANUAL DIFF REQ NO Normal [facility] Comment on above: Performed By: #### C BC #### [facility] [address] [place] [address] Dr. Sushant Pradhan MCH (RBC) [Entitic mass] 33.0 pg Normal 25.9-34.0 [facility] Comment on above: Performed By: #### C BC #### [facility] [address] [place] [address] Dr. Sushant Pradhan MCHC (RBC) [Mass/Vol] 34.9 g/dL Normal 29.9-35.2 [facility] Comment on above: Performed By: #### C BC #### [facility] [address] [place] [address] Dr. Sushant Pradhan MCV (RBC) [Entitic vol] 94.7 fL Critically high 80.0-94.0 [facility] Comment on above: Performed By: #### C BC #### [facility] [address] [place] [address] Dr. Sushant Pradhan MONO # 0.7 103/ul Normal 0.3-0.8 [facility] Comment on above: Performed By: #### C BC #### [facility] [address] [place] [address] Dr. Sushant Pradhan Monocytes/100 WBC (Bld) 12.5 % Critically high 1.7-12.0 [facility] Comment on above: Performed By: #### C BC #### [facility] [address] [place] [address] Dr. Sushant Pradhan NEUT # 4.0 103/ul Normal 1.4-6.5 [facility] Comment on above: Performed By: #### C BC #### [facility] [address] [place] [address] Dr. Sushant Pradhan Neutrophils/100 WBC (Bld) 68.3 % Normal 43.0-75.0 [facility] Comment on above: Performed By: #### C BC #### [facility] [address] [place] [address] Dr. Sushant Pradhan Platelet mean volume (Bld) [Entitic vol] 9.1 fL Critically low 9.5-13.5 [facility] Comment on above: Performed By: #### C BC #### [facility] [address] [place] [address] Dr. Sushant Pradhan PLT 175 103/ul Normal 150-450 [facility] Comment on above: Performed By: #### C BC #### [facility] [address] [place] [address] Dr. Sushant Pradhan RBC 3.94 106/ul Critically low 4.70-6.10 [facility] Comment on above: Performed By: #### C BC #### [facility] [address] [place] [address] Dr. Sushant Pradhan WBC 5.8 103/ul Normal 4.0-11.0 [facility] Comment on above: Performed By: #### C BC #### [facility] [address] [place] [address] Dr. Sushant Pradhan PROF 14(COMP METB)on 023 Albumin [Mass/Vol] 2.9 g/dL Critically low 3.4-5.0 [facility] Comment on above: Performed By: #### C MREP #### [facility] [address] [place] [address] Dr. Sushant Pradhan Albumin/Globulin [Mass ratio] 0.8 {ratio} Normal [facility] Comment on above: Performed By: #### C MREP #### [facility] [address] [place] [address] Dr. Sushant Pradhan ALP [Catalytic activity/Vol] 133 U/L Critically high 46-116 [facility] Comment on above: Performed By: #### C MREP #### [facility] [address] [address] [address] Sushant Pradhan ALT [Catalytic activity/Vol] 15 U/L Critically low 16-63 [facility] Comment on above: Performed By: #### C MREP #### [facility] [address] [address] [address] Sushant Pradhan Anion gap [Moles/Vol] 16.5 mmol/L Normal [facility] Comment on above: Performed By: #### C MREP #### [facility] [address] [place] [address] Dr. Sushant Pradhan AST [Catalytic activity/Vol] 15 U/L Normal 15-37 [facility] Comment on above: Performed By: #### C MREP #### [facility] [address] [address] [address] Sushant Pradhan Bilirubin [Mass/Vol] 0.4 mg/dL Normal 0.2-1.0 [facility] Comment on above: Performed By: #### C MREP #### [facility] [address] [address] [address] Sushant Pradhna Calcium [Mass/Vol] 8.6 mg/dL Normal 8.5-10.1 [facility] Comment on above: Performed By: #### C MREP #### [facility] [address] [address] [address] Sushant Pradhan Chloride [Moles/Vol] 97 mmol/L Critically low 98-107 [facility] Comment on above: Performed By: #### C MREP #### [facility] [address] [address] [address] Sushant Pradhan CO2 [Moles/Vol] 22.3 mmol/L Normal 21.0-32.0 [facility] Comment on above: Performed By: #### C MREP #### [facility] [address] [address] [address] Sushant Pradhan Creatinine [Mass/Vol] 0.61 mg/dL Critically low 0.70-1.30 [facility] Comment on above: Performed By: #### C MREP #### [facility] [address] [address] [address] Sushant Pradhan EGFR-AF ZIMBABWEAN >60 Normal >=60 [facility] Comment on above: Performed By: #### C MREP #### [facility] [address] [address] [address] Sushant Pradhan EGFR-NON AF ZIMBABWEAN >60 Normal >=60 [facility] Comment on above: Performed By: #### C MREP #### [facility] [address] [place] [address] Dr. Sushant Pradhan Globulin (S) [Mass/Vol] 3.8 g/dL Normal [facility] Comment on above: Performed By: #### C MREP #### [facility] [address] [place] [address] Dr. Sushant Pradhan Glucose [Mass/Vol] 79 mg/dL Normal 74-106 [facility] Comment on above: Performed By: #### C MREP #### [facility] [address] [place] [address] Dr. Sushant Pradhan Potassium [Moles/Vol] 3.8 mmol/L Normal 3.5-5.1 [facility] Comment on above: Performed By: #### C MREP #### [facility] [address] [place] [address] Dr. Sushant Pradhan Protein [Mass/Vol] 6.7 g/dL Normal 6.4-8.2 [facility] Comment on above: Performed By: #### C MREP #### [facility] [address] [place] [address] Dr. Sushant Pradhan Sodium [Moles/Vol] 132 mmol/L Critically low 136-145 [facility] [place] [facility] Comment on above: Performed By: #### C MREP #### [facility] [address], [place] [address] Dr. Sushant Pradhan Urea nitrogen [Mass/Vol] 5.0 mg/dL Critically low 7.0-18.0 [facility] Comment on above: Performed By: #### C MREP #### [facility] [address], [place] [address] Dr. Sushant Pradhan Urea nitrogen/Creatinine [Mass ratio] 8.2 mg/mg Normal [facility] Comment on above: Performed By: #### C MREP #### [facility] [address], [place] [address] Dr. Sushant Pradhan XR CHEST 1 Von [...] JESSE RAMOS Date: 2022-06-18 10:42 Normal [facility] Basophils Auto (Bld) [#/Vol] Ordered By: Jackie Fraga on 06-17-2022 Basophils (Bld) [#/Vol] 0.0 10*3/uL 0.0-0.2 [facility] Basophils/100 WBC Auto (Bld) Ordered By: Jackie Fraga on 06-17-2022 Basophils/100 WBC (Bld) 0.7 % . [facility] Creatinine and Glomerular fi ltration rate.predicted panel (S/P/Bld)Ordered By: Jackie Fraga on 06-17-2022 Creatinine [Mass/Vol] 0.91 mg/dL 0.64-1.27 [facility] [place] Eosinophils Auto (Bld) [#/Vo l]Ordered By: Jackie Fraga on 06-17-2022 Eosinophils (Bld) [#/Vol] 0.2 10*3/uL 0.0-0.45 [facility] Eosinophils/100 WBC Auto (Bl d)Ordered By: Jackie Fraga on 06-17-2022 Eosinophils/100 WBC (Bld) 3.5 % . [facility] Erythrocyte distribution wid th Auto (RBC) [Ratio]Ordered By: Jackie Fraga on 06-17-2022 Erythrocyte distribution width (RBC) [Ratio] 15.8 % 12.0-14.8 [facility] Estimated glomerular filtrat ion rate (GFR) non- AmericanOrdered By: Jackie Fraga on 06-17-2022 GFR/1.73 sq M.predicted among non-blacks MDRD (S/P/Bld) [Vol rate/Area] > 60 mL/Min [facility] Hematocrit Auto (Bld) [Volum e fraction]Ordered By: Jackie Fraga on 06-17-2022 Hematocrit (Bld) [Volume fraction] 41.9 % 38.8-50.0 [facility] Hemoglobin [Mass/volume] in BloodOrdered By: Jackie Fraga on 06-17-2022 Hemoglobin (Bld) [Mass/Vol] 13.8 g/dL 13.0-17.0 [facility] Leukocytes [#/volume] correc chris for nucleated erythrocytes in Blood by Automated counOrdered By: Jackie Fraga on 06-17-2022 WBC corrected for nucl RBC Auto (Bld) [#/Vol] 6.1 10*3/uL 4.1-10.5 [facility] Lymphocytes Auto (Bld) [#/Vo l]Ordered By: Jackie Fraga on 06-17-2022 Lymphocytes (Bld) [#/Vol] 1.0 10*3/uL 1.00-4.8 [facility] Lymphocytes/100 WBC Auto (Bl d)Ordered By: Jackie Fraga on 06-17-2022 Lymphocytes/100 WBC (Bld) 16.6 % . [facility] MCH Auto (RBC) [Entitic mass ]Ordered By: Jackie Fraga on 06-17-2022 MCH (RBC) [Entitic mass] 32.9 pg 27.5-35.2 [facility] MCHC Auto (RBC) [Mass/Vol]Or dered By: Jackie Fraga on 06-17-2022 MCHC (RBC) [Mass/Vol] 33.1 g/dL 32.5-35.6 [facility] MCV Auto (RBC) [Entitic vol] Ordered By: Jackie Fraga on 06-17-2022 MCV (RBC) [Entitic vol] 99.4 fL 83.5-101 [facility] Monocytes Auto (Bld) [#/Vol] Ordered By: Jackie Fraga on 06-17-2022 Monocytes (Bld) [#/Vol] 0.8 10*3/uL 0.0-0.8 [facility] Monocytes/100 WBC Auto (Bld) Ordered By: Jackie Fraga on 06-17-2022 Monocytes/100 WBC (Bld) 13.3 % . [facility] Neutrophils Auto (Bld) [#/Vo l]Ordered By: Jackie Fraga on 06-17-2022 Neutrophils (Bld) [#/Vol] 4.0 10*3/uL 1.8-7.7 [facility] Neutrophils/100 WBC Auto (Bl d)Ordered By: Jackie Fraga on 06-17-2022 Neutrophils/100 WBC (Bld) 65.9 % . [facility] No Panel InformationOrdered By: Jackie Fraga on 06-17-2022 Estimated GFR () > 60 mL/Min [facility] Comment on above: GFR estimated refere nce range: According to KDOQI guidelines, <60 ml/min/1.73m2 is sufficient to diagnose a patient with chronic kidney disease. Pharmacy Creatinine Clearance (Chem 86.01 [facility] Nucleated erythrocytes [Pres ence] in Blood by Automated countOrdered By: Jackie Fraga on 06-17-2022 Nucleated RBC Auto Ql (Bld) 0.2 /100{WBC} 0-0.5 [facility] Platelet mean volume Auto (B ld) [Entitic vol]Ordered By: Jackie Fraga on 06-17-2022 Platelet mean volume (Bld) [Entitic vol] 7.7 fL 6.6-10.1 [facility] Platelets Auto (Bld) [#/Vol] Ordered By: Jackie Fraga on 06-17-2022 Platelets (Bld) [#/Vol] 185 10*3/uL 150-450 [facility] RBC Auto (Bld) [#/Vol]Ordere d By: Jackie Fraga on 06-17-2022 RBC (Bld) [#/Vol] 4.21 10*6/uL 3.90-5.60 [facility] Serum or plasma anion gap de terminationOrdered By: Jackie Fraga on 06-17-2022 Anion gap [Moles/Vol] 10.6 mmol/L 6.0-15.0 [facility] Serum or plasma calcium ledy urement (mass/volume)Ordered By: Jackie Fraga on 06-17-2022 Calcium [Mass/Vol] 8.6 mg/dL 8.2-10.2 [facility] Serum or plasma chloride carlyn surement (moles/volume)Ordered By: Jackie Fraga on 06-17-2022 Chloride [Moles/Vol] 99 mmol/L 95-114 [facility] Serum or plasma glucose ledy urement (mass/volume)Ordered By: Jackie Fraga on 06-17-2022 Glucose [Mass/Vol] 94 mg/dL 70-100 [facility] Comment on above: ADA recommended refe rence rangeRandom Glucose Reference Range is dependent on time and content of last meal. Glucose of more than 200 mg/dL in a nonstressed, ambulatory subject supports the diagnosis of Diabetes Mellitus. Serum or plasma potassium me asurement (moles/volume)Ordered By: Jackie Fraga on 06-17-2022 Potassium [Moles/Vol] 4.1 mmol/L 3.5-5.1 [facility] Serum or plasma sodium measu rement (moles/volume)Ordered By: Jackie Fraga on 06-17-2022 Sodium [Moles/Vol] 127 mmol/L 136-146 [facility] Serum or plasma total carbon dioxide measurement (moles/volume)Ordered By: Jackie Fraga on 06-17-2022 CO2 [Moles/Vol] 21.5 mmol/L 22.0-30.0 [facility] Serum or plasma urea nitroge n measurement (mass/volume)Ordered By: Jackie Fraga on 06-17-2022 Urea nitrogen [Mass/Vol] 10 mg/dL 9-23 [facility] TSH DL <= 0.005 mIU/L QnOrde red By: Jackie Fraga on 06-17-2022 TSH Qn 4.63 m[IU]/L 0.45-5.33 [facility] WBC Auto (Bld) [#/Vol]Ordere d By: Jackie Fraga on 06-17-2022 WBC (Bld) [#/Vol] 6.1 10*3/uL 4.1-10.5 [facility] Amphetamine Screen Ql (U)Ord ered By: Edward Hinds on 06-16-2022 Amphetamines Ql (U) Negative Negative [facility] Barbiturates [Presence] in U rineOrdered By: Edward Hinds on 06-16-2022 Barbiturates Ql (U) Negative Negative [facility] Benzodiazepines [Presence] i n UrineOrdered By: Edward Hinds on 06-16-2022 Benzodiazepines Ql (U) Negative Negative [facility] Cannabinoids [Presence] in U rine by Screen methodOrdered By: Edward Hinds on 06-16-2022 Cannabinoids Screen Ql (U) Positive Negative [facility] [facility] Comment on above: These are unconfirme d results and should not be used for legal purposes. Drug Cut-Off Concentration: AMPH 1000 ng/mL ZUNILDA 200 ng/mL SHIVANI 200 ng/mL COCM 300 ng/mL OP 300 ng/mL PCP 25 ng/mL THC 20 ng/mL Laboratory - Drug toxicology Ordered By: Edward Hinds on 06-16-2022 Opiates Ql (U) Negative Negative [facility] Phencyclidine Screen Ql (U)O rdered By: Edward Hinds on 06-16-2022 Phencyclidine Ql (U) Negative Negative [facility] Urine cocaine detectionOrder ed By: Edward Hinds on 06-16-2022 Cocaine Ql (U) Negative Negative [facility] Activated partial thrombopla stin time (aPTT) in platelet poor plasma by coagulation aOrdered By: Varghese Duval on 06-15-2022 aPTT Coag (PPP) [Time] 35.2 s 25.1-36.5 [facility] Basophils Auto (Bld) [#/Vol] Ordered By: Varghese Duval on 06-15-2022 Basophils (Bld) [#/Vol] 0.1 10*3/uL 0.0-0.2 [facility] Basophils/100 WBC Auto (Bld) Ordered By: Varghese Duval on 06-15-2022 Basophils/100 WBC (Bld) 1.0 % . [facility] Bilirubin Test strip Ql (U)O rdered By: Varghese Duval on 06-15-2022 Bilirubin Ql (U) Negative Negative [facility] Color Auto (U)Ordered By: Tanya Duval on 06-15-2022 Color (U) Yellow Yellow [facility] Creatinine and Glomerular fi ltration rate.predicted panel (S/P/Bld)Ordered By: Varghese Duval on 06-15-2022 Creatinine [Mass/Vol] 0.76 mg/dL 0.64-1.27 [facility] Eosinophils Auto (Bld) [#/Vo l]Ordered By: Varghese Duval on 06-15-2022 Eosinophils (Bld) [#/Vol] 0.3 10*3/uL 0.0-0.45 [facility] Eosinophils/100 WBC Auto (Bl d)Ordered By: Varghese Duval on 06-15-2022 Eosinophils/100 WBC (Bld) 4.9 % . [facility] Erythrocyte distribution wid th Auto (RBC) [Ratio]Ordered By: Varghese Duval on 06-15-2022 Erythrocyte distribution width (RBC) [Ratio] 15.9 % 12.0-14.8 [facility] Estimated glomerular filtrat ion rate (GFR) non- AmericanOrdered By: Varghese Duval on 06-15-2022 GFR/1.73 sq M.predicted among non-blacks MDRD (S/P/Bld) [Vol rate/Area] > 60 mL/Min [facility] Hematocrit Auto (Bld) [Volum e fraction]Ordered By: Varghese Duval on 06-15-2022 Hematocrit (Bld) [Volume fraction] 42.5 % 38.8-50.0 [facility] Hemoglobin [Mass/volume] in BloodOrdered By: Varghese Duval on 06-15-2022 Hemoglobin (Bld) [Mass/Vol] 14.3 g/dL 13.0-17.0 [facility] Ketones Auto test strip (U) [Mass/Vol]Ordered By: Varghese Duval on 06-15-2022 Ketones (U) [Mass/Vol] Negative Negative [facility] Laboratory - CoagulationOrde red By: Varghese Duval on 06-15-2022 PT Coag (PPP) [Time] 10.7 s 9.0-12.9 [facility] Leukocytes [#/volume] correc chris for nucleated erythrocytes in Blood by Automated counOrdered By: Varghese Duval on 06-15-2022 WBC corrected for nucl RBC Auto (Bld) [#/Vol] 5.4 10*3/uL 4.1-10.5 [facility] Lymphocytes Auto (Bld) [#/Vo l]Ordered By: Varghese Duval on 06-15-2022 Lymphocytes (Bld) [#/Vol] 1.0 10*3/uL 1.00-4.8 [facility] Lymphocytes/100 WBC Auto (Bl d)Ordered By: Varghese Duval on 06-15-2022 Lymphocytes/100 WBC (Bld) 19.3 % . [facility] MCH Auto (RBC) [Entitic mass ]Ordered By: Varghese Duval on 06-15-2022 MCH (RBC) [Entitic mass] 33.2 pg 27.5-35.2 [facility] MCHC Auto (RBC) [Mass/Vol]Or dered By: Varghese Duval on 06-15-2022 MCHC (RBC) [Mass/Vol] 33.5 g/dL 32.5-35.6 [facility] MCV Auto (RBC) [Entitic vol] Ordered By: Varghese Duval on 06-15-2022 MCV (RBC) [Entitic vol] 98.9 fL 83.5-101 [facility] Monocytes Auto (Bld) [#/Vol] Ordered By: Varghese Duval on 06-15-2022 Monocytes (Bld) [#/Vol] 0.5 10*3/uL 0.0-0.8 [facility] Monocytes/100 WBC Auto (Bld) Ordered By: Varghese Duval on 06-15-2022 Monocytes/100 WBC (Bld) 8.8 % . [facility] Neutrophils Auto (Bld) [#/Vo l]Ordered By: Varghese Duval on 06-15-2022 Neutrophils (Bld) [#/Vol] 3.6 10*3/uL 1.8-7.7 [facility] Neutrophils/100 WBC Auto (Bl d)Ordered By: Varghese Duval on 06-15-2022 Neutrophils/100 WBC (Bld) 66.0 % . [facility] Nitrite Test strip Ql (U)Ord ered By: Varghese Duval on 06-15-2022 Nitrite Ql (U) Negative Negative [facility] No Panel InformationOrdered By: Varghese Duval on 06-15-2022 Estimated GFR () > 60 mL/Min [facility] Comment on above: GFR estimated refere nce range: According to KDOQI guidelines, <60 ml/min/1.73m2 is sufficient to diagnose a patient with chronic kidney disease. Pharmacy Creatinine Clearance (Chem N/A [facility] Nucleated erythrocytes [Pres ence] in Blood by Automated countOrdered By: Varghese Duval on 06-15-2022 Nucleated RBC Auto Ql (Bld) 0.2 /100{WBC} 0-0.5 [facility] Platelet mean volume Auto (B ld) [Entitic vol]Ordered By: Varghese Duval on 06-15-2022 Platelet mean volume (Bld) [Entitic vol] 7.4 fL 6.6-10.1 [facility] Platelet poor plasma interna tional normalized ratio (INR) by coagulation assay (relatOrdered By: Varghese Duval on 06-15-2022 INR Coag (PPP) [Relative time] 0.9 {INR} [facility] Comment on above: INR Therapeutic Rang [...] 06-15-2022 Platelets (Bld) [#/Vol] 212 10*3/uL 150-450 [facility] Protein Auto test strip (U) [Mass/Vol]Ordered By: Varghese Duval on 06-15-2022 Protein (U) [Mass/Vol] Negative Negative [facility] RBC Auto (Bld) [#/Vol]Ordere d By: Varghese Duval on 06-15-2022 RBC (Bld) [#/Vol] 4.30 10*6/uL 3.90-5.60 [facility] Serum or plasma anion gap de terminationOrdered By: Varghese Duval on 06-15-2022 Anion gap [Moles/Vol] 14.4 mmol/L 6.0-15.0 [facility] Serum or plasma calcium ledy urement (mass/volume)Ordered By: Varghese Duval on 06-15-2022 Calcium [Mass/Vol] 8.5 mg/dL 8.2-10.2 [facility] Serum or plasma chloride carlyn surement (moles/volume)Ordered By: Varghese Duval on 06-15-2022 Chloride [Moles/Vol] 98 mmol/L 95-114 [facility] Serum or plasma glucose ledy urement (mass/volume)Ordered By: Varghese Duval on 06-15-2022 Glucose [Mass/Vol] 74 mg/dL 70-100 [facility] Comment on above: ADA recommended refe rence rangeRandom Glucose Reference Range is dependent on time and content of last meal. Glucose of more than 200 mg/dL in a nonstressed, ambulatory subject supports the diagnosis of Diabetes Mellitus. Serum or plasma potassium me asurement (moles/volume)Ordered By: Varghese Duval on 06-15-2022 Potassium [Moles/Vol] 4.2 mmol/L 3.5-5.1 [facility] Serum or plasma sodium measu rement (moles/volume)Ordered By: Varghese Duval on 06-15-2022 Sodium [Moles/Vol] 129 mmol/L 136-146 [facility] Serum or plasma total carbon dioxide measurement (moles/volume)Ordered By: Varghese Duval on 06-15-2022 CO2 [Moles/Vol] 20.8 mmol/L 22.0-30.0 [facility] Serum or plasma urea nitroge n measurement (mass/volume)Ordered By: Varghese Duval on 06-15-2022 Urea nitrogen [Mass/Vol] 4 mg/dL 9-23 [facility] Specific gravity Auto test s trip (U) [Rel density]Ordered By: Varghese Duval on 06-15-2022 Specific gravity (U) [Rel density] 1.008 1.001-1.030 [facility] Urine clarity by refractomet ry automatedOrdered By: Varghese Duval on 06-15-2022 Clarity Refractometry automated (U) Clear Clear [facility] Urine glucose measurement by automated test strip (mass/volume)Ordered By: Varghese Duval on 06-15-2022 Glucose Auto test strip (U) [Mass/Vol] Normal mg/dL Normal [facility] Urine hemoglobin detection b y automated test stripOrdered By: Varghese Duval on 06-15-2022 Hemoglobin Auto test strip Ql (U) Negative Negative [facility] Urine leukocyte esterase det ection by automated test stripOrdered By: Varghese Duval on 06-15-2022 Leukocyte esterase Auto test strip Ql (U) Negative Negative [facility] Urobilinogen Auto test strip (U) [Mass/Vol]Ordered By: Varghese Duval on 06-15-2022 Urobilinogen (U) [Mass/Vol] Normal mg/dL Normal [facility] WBC Auto (Bld) [#/Vol]Ordere d By: Varghese Duval on 06-15-2022 WBC (Bld) [#/Vol] 5.4 10*3/uL 4.1-10.5 [facility] pH Auto test strip (U)Ordere d By: Varghese Duval on 06-15-2022 pH (U) 5.5 [pH] 5.0-9.0 [facility] CT chest w conon 06-01-2022 CT chest w con [facility] [employer] Other CT chest w con [facility] [employer] Other CT chest w con [address] [place] [address] [employer] [address] [place] [address] No [facility] [employer] Other CT chest w con CT Scan Report [employer] Other CT chest w con Signed [employer] Other CT chest w con Patient: Gustavo Echols N MR#: [id number] [employer] Other CT chest w con [address] [employer] [address] chest w con : 1965 Acct:[id number] [employer] Other CT chest w con Age/Sex: 57 / M ADM Date: 06/01/[address] [employer] [address] chest w con Loc: CT Room: Type: [facility] [employer] Other CT chest w con Attending Dr: Rachid Chase MD [employer] Other CT chest w con Copies to: Rachid whitlock MD [employer] Other CT chest w con Ordering Provider: Narinder Chase MD [employer] Other CT chest w con Date of Service: 06/01/[address] [employer] [address] chest w con CT/CT chest w con: C34.[address] [employer] [address] chest w con CT chest withcontrast [employer] Other CT chest w con TECHNIQUE: Axial adore ging with 2-D reconstruction. 83 cc of [id number] CT exam was performed [employer] Other CT chest w con using one or more th e following dose reduction techniques: Automated exposure control, adjustment of [employer] Other CT chest w con the MA and/or Kv according to patient size, or use of the iterative reconstruction technique. [employer] Other CT chest w con History: History of lung cancer. Chest tightness. Shortness of breath. [employer] Other CT chest w con COMPARISON: 04/10/[address] [employer] [address] chest w con No thyroid abnormali ty [id number] present on the left. [employer] Other CT chest w con Central airway is patent. [employer] Other CT chest w con No esophageal abnormality identified. [employer] Other CT chest w con Heart is not enlarge d. No pericardial effusion is seen. [employer] Other CT chest w con Nonenlarged mediasti nal lymph nodes identified. No hilar mass or adenopathy is seen. [employer] Other CT chest w con No thoracic aortic aneurysm is seen. [employer] Other CT chest w con No lung nodules identified. [employer] Other CT chest w con No infiltrate or congestion identified. Developing medial right middle lobe atelectasis. Large [employer] Other CT chest w con right pleural effusi on redemonstrated. This is similar to prior examination. No pneumothorax seen. [employer] Other CT chest w con Emphysematous change s redemonstrated. [employer] Other CT chest w con No chest wall abnormality seen. The bony structures are intact. [employer] Other CT chest w con Images of the upper abdomen are noncontributory. [employer] Other CT chest w con C T/CT chest w con [employer] Other CT chest w con IMPRESSION: Developi ng medial right middle lobe atelectasis. Continued large right pleural [employer] Other CT chest w con effusion. Emphysema. [employer] Other CT chest w con Impression dictated by: Franklin Gomes M.D.06/01/2022 3:[address] [employer] Other CT chest w con Dictation Location: [facility] [employer] Other CT chest w con Transcribed By: PWS 06/01/[address] [employer] [address] chest w con Dictated By: Franklin Gomes DO 06/01/[address] [employer] [address] chest w con Signed By: [employer] Other CT chest w con 06/01/22 1520 [employer] Other Creatinine (Bld) [Mass/Vol]O rdered By: Rachid Chase on 06-01-2022 Creatinine [Mass/Vol] 0.8 mg/dL 0.6-1.3 [facility] Comment on above: ER/ESD physician is notified/shown all ISTAT results.Critical values may be confirmed by laboratory testing ifdeemed necessary by ER attending doctor. No Panel InformationOrdered By: Rachid Chase on 06-01-2022 POC Estimated GFR > 60 [facility] Comment on above: GFR estimated refere nce range: According to KDOQI guidelines, <60 ml/min/1.73m2 is sufficient to diagnose a patient with chronic kidney disease. POC Estimated GFR Non- Amer > 60 [facility] Activated partial thrombopla stin time (aPTT) in platelet poor plasma by coagulation aOrdered By: Estela Varma on 04-18-2022 aPTT Coag (PPP) [Time] 44.4 s 25.1-36.5 [facility] Laboratory - CoagulationOrde red By: Estela Varma on 04-18-2022 PT Coag (PPP) [Time] 11.2 s 9.0-12.9 [facility] Platelet poor plasma interna tional normalized ratio (INR) by coagulation assay (relatOrdered By: Estela Varma on 04-18-2022 INR Coag (PPP) [Relative time] 1.0 {INR} [facility] Comment on above: INR Therapeutic Rang [...] 04-18-2022 Platelets (Bld) [#/Vol] 158 10*3/uL 150-450 [facility] Bacterial blood cultureOrder ed By: Tez Irene on 04-15-2022 Bacteria identified Cx Nom (Bld) NO GROWTH 5 DAYS [facility] Bacteria identified Anaer cx Nom (Unsp spec)Ordered By: Tez Irene on 04-14-2022 Anaerobic microbial culture No Anaerobes Isolated 3 Days [facility] ABO and Rh group post transf usion reaction Nom (Bld)Ordered By: Tez Irene on 04-12-2022 Microscopic observation Gram stain Nom (Unsp spec) [facility] Aerobic cultureOrdered By: Krystina Irene on 04-11-2022 Bacteria identified Aer cx Nom (Unsp spec) No Growth 2 Days [facility] Anaerobic cultureOrdered By: Tez Irene on 04-11-2022 Bacteria identified Anaer cx Nom (Unsp spec) No Anaerobes Isolated 3 Days [facility] Body fluid differential cell countOrdered By: Tez Irene on 04-11-2022 Differential panel (Body fld) 4 % [facility] Comment on above: The reference interv al and other method performance specifications have not been established for this body fluid. The test result must be integrated into the clinical context for interpretation. Differential panel (Body fld) 0 % [facility] Comment on above: The reference interv al and other method performance specifications have not been established for this body fluid. The test result must be integrated into the clinical context for interpretation. Body fluid protein measureme nt (mass/volume)Ordered By: Tez Irene on 04-11-2022 Protein (Body fld) [Mass/Vol] 3.8 g/dL [facility] Cells Counted Total [#] in B sarah fluidOrdered By: Tez Irene on 04-11-2022 Cells Counted Total (Body fld) [#] 1147 /uL [facility] Comment on above: The reference interv al and other method performance specifications have not been established for this body fluid. The test result must be integrated into the clinical context for interpretation. Color of Spun Body fluidOrde red By: Tez Irene on 04-11-2022 Color (Spun body fld) Straw [facility] Comment on above: The reference interv al and other method performance specifications have not been established for this body fluid. The test result must be integrated into the clinical context for interpretation. Determination of appearance of body fluidOrdered By: Tez Irene on 04-11-2022 Appearance (Body fld) Hazy [facility] Comment on above: The reference interv al and other method performance specifications have not been established for this body fluid. The test result must be integrated into the clinical context for interpretation. Erythrocytes [#/volume] in B sarah fluid by Automated countOrdered By: Tez Irene on 04-11-2022 RBC Auto (Body fld) [#/Vol] 39647 mm^3 [facility] Comment on above: The reference interv al and other method performance specifications have not been established for this body fluid. The test result must be integrated into the clinical context for interpretation. Evaluation of color of body fluidOrdered By: Tez Irene on 04-11-2022 Color (Body fld) Straw [facility] Comment on above: The reference interv al and other method performance specifications have not been established for this body fluid. The test result must be integrated into the clinical context for interpretation. Gram stain for investigation of transfusion reactionOrdered By: Tez Irene on 04-11-2022 Microscopic observation Gram stain Nom (Unsp spec) [facility] Lactate dehydrogenase measur ement (enzymatic activity/volume)Ordered By: Tez Irene on 04-11-2022 LDH (Unsp spec) [Catalytic activity/Vol] 88 [IU]/mL [facility] Comment on above: No reference range e stablished LDH (Unsp spec) [Catalytic activity/Vol] 100 U/L 45-190 [facility] Manual body fluid eosinophil s/100 leukocytesOrdered By: Tez Irene on 04-11-2022 Eosinophils/100 WBC Manual cnt (Body fld) 0 /100{WBC} 0-3 [facility] Manual body fluid lymphocyte s/100 leukocytesOrdered By: Tez Irene on 04-11-2022 Lymphocytes/100 WBC Manual cnt (Body fld) 61 % [facility] Comment on above: The reference interv al and other method performance specifications have not been established for this body fluid. The test result must be integrated into the clinical context for interpretation. Neutrophils/100 WBC Manual c nt (Body fld)Ordered By: Tez Irene on 04-11-2022 Neutrophils/100 WBC (Body fld) 35 % [facility] Comment on above: The reference interv al and other method performance specifications have not been established for this body fluid. The test result must be integrated into the clinical context for interpretation. Troponin I.cardiac [Mass/vol ume] in Serum or Plasma by High sensitivity methodOrdered By: Tez Irene on 04-11-2022 Troponin I.cardiac High sensitivity method [Mass/Vol] 5 pg/mL 0-20 [facility] Albumin [Mass/volume] in Ser um or PlasmaOrdered By: Kali Longo on 04-10-2022 Albumin [Mass/Vol] 3.3 g/dL 3.2-5.5 [facility] Albumin [Mass/volume] in Ser um or PlasmaOrdered By: Estela Varma on 04-10-2022 Albumin [Mass/Vol] 3.4 g/dL 3.2-5.5 [facility] Bacterial blood cultureOrder ed By: Tez Irene on 04-10-2022 Bacteria identified Cx Nom (Bld) NO GROWTH 5 DAYS [facility] Basophils Auto (Bld) [#/Vol] Ordered By: Kali Longo on 04-10-2022 Basophils (Bld) [#/Vol] 0.1 10*3/uL 0.0-0.2 [facility] Basophils Auto (Bld) [#/Vol] Ordered By: Estela Varma on 04-10-2022 Basophils (Bld) [#/Vol] 0.1 10*3/uL 0.0-0.2 [facility] Basophils/100 WBC Auto (Bld) Ordered By: Kali Longo on 04-10-2022 Basophils/100 WBC (Bld) 1.0 % . [facility] Basophils/100 WBC Auto (Bld) Ordered By: Estela Varma on 04-10-2022 Basophils/100 WBC (Bld) 0.9 % . [facility] Creatinine and Glomerular fi ltration rate.predicted panel (S/P/Bld)Ordered By: Kali Longo on 04-10-2022 Creatinine [Mass/Vol] 0.86 mg/dL 0.64-1.27 [facility] Creatinine and Glomerular fi ltration rate.predicted panel (S/P/Bld)Ordered By: Estela Varma on 04-10-2022 Creatinine [Mass/Vol] 0.92 mg/dL 0.64-1.27 [facility] Eosinophils Auto (Bld) [#/Vo l]Ordered By: Kali Longo on 04-10-2022 Eosinophils (Bld) [#/Vol] 0.1 10*3/uL 0.0-0.45 [facility] Eosinophils Auto (Bld) [#/Vo l]Ordered By: Estela Varma on 04-10-2022 Eosinophils (Bld) [#/Vol] 0.2 10*3/uL 0.0-0.45 [facility] Eosinophils/100 WBC Auto (Bl d)Ordered By: Kali Longo on 04-10-2022 Eosinophils/100 WBC (Bld) 1.5 % . [facility] Eosinophils/100 WBC Auto (Bl d)Ordered By: Estela Varma on 04-10-2022 Eosinophils/100 WBC (Bld) 2.9 % . [facility] Erythrocyte distribution wid th Auto (RBC) [Ratio]Ordered By: Kali Longo on 04-10-2022 Erythrocyte distribution width (RBC) [Ratio] 14.1 % 12.0-14.8 [facility] Erythrocyte distribution wid th Auto (RBC) [Ratio]Ordered By: Estela Varma on 04-10-2022 Erythrocyte distribution width (RBC) [Ratio] 14.6 % 12.0-14.8 [facility] Estimated glomerular filtrat ion rate (GFR) non- AmericanOrdered By: Kali Longo on 04-10-2022 GFR/1.73 sq M.predicted among non-blacks MDRD (S/P/Bld) [Vol rate/Area] > 60 mL/Min [facility] Estimated glomerular filtrat ion rate (GFR) non- AmericanOrdered By: Estela Varma on 04-10-2022 GFR/1.73 sq M.predicted among non-blacks MDRD (S/P/Bld) [Vol rate/Area] > 60 mL/Min [facility] Globulin Calc (S) [Mass/Vol] Ordered By: Kali Longo on 04-10-2022 Globulin (S) [Mass/Vol] 3.1 g/dL [facility] Globulin Calc (S) [Mass/Vol] Ordered By: Estela Varma on 04-10-2022 Globulin (S) [Mass/Vol] 3.1 g/dL [facility] Hematocrit Auto (Bld) [Volum e fraction]Ordered By: Kali Longo on 04-10-2022 Hematocrit (Bld) [Volume fraction] 44.7 % 38.8-50.0 [facility] Hematocrit Auto (Bld) [Volum e fraction]Ordered By: Estela Varma on 04-10-2022 Hematocrit (Bld) [Volume fraction] 46.1 % 38.8-50.0 [facility] Hemoglobin [Mass/volume] in BloodOrdered By: Kali Longo on 04-10-2022 Hemoglobin (Bld) [Mass/Vol] 15.2 g/dL 13.0-17.0 [facility] Hemoglobin [Mass/volume] in BloodOrdered By: Estela Varma on 04-10-2022 Hemoglobin (Bld) [Mass/Vol] 15.5 g/dL 13.0-17.0 [facility] Laboratory - Chemistry and C hemistry - challengeOrdered By: Kali Longo on 04-10-2022 Natriuretic peptide B (Bld) [Mass/Vol] 19.0 pg/mL 5-100 [facility] Laboratory - Hematology and Cell countsOrdered By: Kali Longo on 04-10-2022 Nucleated RBC/100 WBC (Bld) [Ratio] 0.1 % 0-0.5 [facility] - Hematology and Cell countsOrdered By: Estela Varma on 04-10-2022 Nucleated RBC/100 WBC (Bld) [Ratio] 0.1 % 0-0.5 [facility] Leukocytes [#/volume] in Blo od by Automated countOrdered By: Kali Longo on 04-10-2022 WBC (Bld) [#/Vol] 6.1 10*3/uL 4.5-11.0 [facility] Leukocytes [#/volume] in Blo od by Automated countOrdered By: Estela Varma on 04-10-2022 WBC (Bld) [#/Vol] 6.3 10*3/uL 4.5-11.0 [facility] Lymphocytes Auto (Bld) [#/Vo l]Ordered By: Kali Longo on 04-10-2022 Lymphocytes (Bld) [#/Vol] 0.9 10*3/uL 1.00-4.8 [facility] Lymphocytes Auto (Bld) [#/Vo l]Ordered By: Estela Varma on 04-10-2022 Lymphocytes (Bld) [#/Vol] 1.0 10*3/uL 1.00-4.8 [facility] Lymphocytes/100 WBC Auto (Bl d)Ordered By: Kali Longo on 04-10-2022 Lymphocytes/100 WBC (Bld) 14.2 % . [facility] Lymphocytes/100 WBC Auto (Bl d)Ordered By: Estela Varma on 04-10-2022 Lymphocytes/100 WBC (Bld) 16.2 % . [facility] MCH Auto (RBC) [Entitic mass ]Ordered By: Kali Longo on 04-10-2022 MCH (RBC) [Entitic mass] 32.9 pg 27.5-35.2 [facility] MCH Auto (RBC) [Entitic mass ]Ordered By: Estela Varma on 04-10-2022 MCH (RBC) [Entitic mass] 32.6 pg 27.5-35.2 [facility] MCHC Auto (RBC) [Mass/Vol]Or dered By: Kali Longo on 04-10-2022 MCHC (RBC) [Mass/Vol] 33.9 g/dL 32.5-35.6 [facility] MCHC Auto (RBC) [Mass/Vol]Or dered By: Estela Varma on 04-10-2022 MCHC (RBC) [Mass/Vol] 33.6 g/dL 32.5-35.6 [facility] MCV Auto (RBC) [Entitic vol] Ordered By: Kali Longo on 04-10-2022 MCV (RBC) [Entitic vol] 96.9 fL 83.5-101 [facility] MCV Auto (RBC) [Entitic vol] Ordered By: Estela Varma on 04-10-2022 MCV (RBC) [Entitic vol] 97.2 fL 83.5-101 [facility] Monocytes Auto (Bld) [#/Vol] Ordered By: Kali Longo on 04-10-2022 Monocytes (Bld) [#/Vol] 0.6 10*3/uL 0.0-0.8 [facility] Monocytes Auto (Bld) [#/Vol] Ordered By: Estela Varma on 04-10-2022 Monocytes (Bld) [#/Vol] 0.5 10*3/uL 0.0-0.8 [facility] Monocytes/100 WBC Auto (Bld) Ordered By: Kali Longo on 04-10-2022 Monocytes/100 WBC (Bld) 9.9 % . [facility] Monocytes/100 WBC Auto (Bld) Ordered By: Estela Varma on 04-10-2022 Monocytes/100 WBC (Bld) 8.6 % . [facility] Neutrophils Auto (Bld) [#/Vo l]Ordered By: aKli Longo on 04-10-2022 Neutrophils (Bld) [#/Vol] 4.5 10*3/uL 1.8-7.7 [facility] Neutrophils Auto (Bld) [#/Vo l]Ordered By: Estela Varma on 04-10-2022 Neutrophils (Bld) [#/Vol] 4.5 10*3/uL 1.8-7.7 [facility] Neutrophils/100 WBC Auto (Bl d)Ordered By: Kali Longo on 04-10-2022 Neutrophils/100 WBC (Bld) 73.4 % . [facility] Neutrophils/100 WBC Auto (Bl d)Ordered By: Estela Varma on 04-10-2022 Neutrophils/100 WBC (Bld) 71.4 % . [facility] No Panel InformationOrdered By: Kali Longo on 04-10-2022 D-Dimer Quantitative (PE/DVT) 529 ng/mL 0-243 [facility] Comment on above: The reference range [...] conditions. Estimated GFR () > 60 mL/Min [facility] Comment on above: GFR estimated refere nce range: According to KDOQI guidelines, <60 ml/min/1.73m2 is sufficient to diagnose a patient with chronic kidney disease. Pharmacy Creatinine Clearance (Chem 92.25 [facility] No Panel InformationOrdered By: Estela Varma on 04-10-2022 Estimated GFR () > 60 mL/Min [facility] Comment on above: GFR estimated refere nce range: According to KDOQI guidelines, <60 ml/min/1.73m2 is sufficient to diagnose a patient with chronic kidney disease. Pharmacy Creatinine Clearance (Chem 89.21 [facility] Platelet mean volume Auto (B ld) [Entitic vol]Ordered By: Kali Longo on 04-10-2022 Platelet mean volume (Bld) [Entitic vol] 7.0 fL 6.6-10.1 [facility] Platelet mean volume Auto (B ld) [Entitic vol]Ordered By: Estela Varma on 04-10-2022 Platelet mean volume (Bld) [Entitic vol] 7.4 fL 6.6-10.1 [facility] Platelets Auto (Bld) [#/Vol] Ordered By: Kali Longo on 04-10-2022 Platelets (Bld) [#/Vol] 242 10*3/uL 150-450 [facility] Platelets Auto (Bld) [#/Vol] Ordered By: Estela Varma on 04-10-2022 Platelets (Bld) [#/Vol] 239 10*3/uL 150-450 [facility] Protein [Mass/volume] in Ser um or PlasmaOrdered By: Kali Longo on 04-10-2022 Protein [Mass/Vol] 6.4 g/dL 6.1-7.9 [facility] Protein [Mass/volume] in Ser um or PlasmaOrdered By: Estela Varma on 04-10-2022 Protein [Mass/Vol] 6.5 g/dL 6.1-7.9 [facility] RBC Auto (Bld) [#/Vol]Ordere d By: Kali Longo on 04-10-2022 RBC (Bld) [#/Vol] 4.61 10*6/uL 3.90-5.60 [facility] RBC Auto (Bld) [#/Vol]Ordere d By: Estela Varma on 04-10-2022 RBC (Bld) [#/Vol] 4.75 10*6/uL 3.90-5.60 [facility] Serum or plasma alanine glynn otransferase measurement without P-5'-P (enzymatic activiOrdered By: Kali Longo on 04-10-2022 ALT No additional P-5'-P [Catalytic activity/Vol] 13 U/L [facility] Serum or plasma alanine glynn otransferase measurement without P-5'-P (enzymatic activiOrdered By: Estela Varma on 04-10-2022 ALT No additional P-5'-P [Catalytic activity/Vol] 14 U/L [facility] Serum or plasma albumin/glob ulin mass ratioOrdered By: Kali Longo on 04-10-2022 Albumin/Globulin [Mass ratio] 1.1 {ratio} [facility] Serum or plasma albumin/glob ulin mass ratioOrdered By: Estela Varma on 04-10-2022 Albumin/Globulin [Mass ratio] 1.1 {ratio} [facility] Serum or plasma alkaline abhijit sphatase measurement (enzymatic activity/volume)Ordered By: Kali Longo on 04-10-2022 ALP [Catalytic activity/Vol] 127 U/L [address] [place] [address] Serum or plasma alkaline abhijit sphatase measurement (enzymatic activity/volume)Ordered By: Estela Varma on 04-10-2022 ALP [Catalytic activity/Vol] 128 U/L [facility] Serum or plasma anion gap de terminationOrdered By: Kali Longo on 04-10-2022 Anion gap [Moles/Vol] 15.8 mmol/L 6.0-15.0 [facility] Serum or plasma anion gap de terminationOrdered By: Estela Varma on 04-10-2022 Anion gap [Moles/Vol] 17.3 mmol/L 6.0-15.0 [facility] Serum or plasma aspartate am inotransferase measurement (enzymatic activity/volume)Ordered By: Kali Longo on 04-10-2022 AST [Catalytic activity/Vol] 19 U/L [facility] Serum or plasma aspartate am inotransferase measurement (enzymatic activity/volume)Ordered By: Estela Varma on 04-10-2022 AST [Catalytic activity/Vol] 19 U/L [facility] Serum or plasma calcium ledy urement (mass/volume)Ordered By: Kali Longo on 04-10-2022 Calcium [Mass/Vol] 8.5 mg/dL 8.2-10.2 [facility] Serum or plasma calcium ledy urement (mass/volume)Ordered By: Estela Varma on 04-10-2022 Calcium [Mass/Vol] 8.5 mg/dL 8.2-10.2 [facility] Serum or plasma carcinoembry onic antigen measurement (mass/volume)Ordered By: Estela Varma on 04-10-2022 Carcinoembryonic Ag [Mass/Vol] 10.5 ng/mL 0.0-3.0 [facility] Serum or plasma chloride carlyn surement (moles/volume)Ordered By: Kali Longo on 04-10-2022 Chloride [Moles/Vol] 95 mmol/L 95-114 [facility] Serum or plasma chloride carlyn surement (moles/volume)Ordered By: Estela Varma on 04-10-2022 Chloride [Moles/Vol] 98 mmol/L 95-114 [facility] Serum or plasma glucose ledy urement (mass/volume)Ordered By: Kali Longo on 04-10-2022 Glucose [Mass/Vol] 75 mg/dL 70-100 [facility] Comment on above: ADA recommended refe rence rangeRandom Glucose Reference Range is dependent on time and content of last meal. Glucose of more than 200 mg/dL in a nonstressed, ambulatory subject supports the diagnosis of Diabetes Mellitus. Serum or plasma glucose ledy urement (mass/volume)Ordered By: Estela Varma on 04-10-2022 Glucose [Mass/Vol] 73 mg/dL 70-100 [facility] Comment on above: ADA recommended refe rence rangeRandom Glucose Reference Range is dependent on time and content of last meal. Glucose of more than 200 mg/dL in a nonstressed, ambulatory subject supports the diagnosis of Diabetes Mellitus. Serum or plasma potassium me asurement (moles/volume)Ordered By: Kali Longo on 04-10-2022 Potassium [Moles/Vol] 4.2 mmol/L 3.5-5.1 [facility] Serum or plasma potassium me asurement (moles/volume)Ordered By: Estela Varma on 04-10-2022 Potassium [Moles/Vol] 4.0 mmol/L 3.5-5.1 [facility] Serum or plasma sodium measu rement (moles/volume)Ordered By: Kali Longo on 04-10-2022 Sodium [Moles/Vol] 130 mmol/L 136-146 [facility] Serum or plasma sodium measu rement (moles/volume)Ordered By: Estela Varma on 04-10-2022 Sodium [Moles/Vol] 131 mmol/L 136-146 [facility] Serum or plasma total biliru bin measurement (mass/volume)Ordered By: Kali Longo on 04-10-2022 Bilirubin [Mass/Vol] 0.6 mg/dL 0.3-1.2 [facility] Serum or plasma total biliru bin measurement (mass/volume)Ordered By: Estela Varma on 04-10-2022 Bilirubin [Mass/Vol] 0.7 mg/dL 0.3-1.2 [facility] Serum or plasma total carbon dioxide measurement (moles/volume)Ordered By: Kali Longo on 04-10-2022 CO2 [Moles/Vol] 23.4 mmol/L 22.0-30.0 [facility] Serum or plasma total carbon dioxide measurement (moles/volume)Ordered By: Estela Varma on 04-10-2022 CO2 [Moles/Vol] 19.7 mmol/L 22.0-30.0 [facility] Serum or plasma urea nitroge n measurement (mass/volume)Ordered By: Kali Longo on 04-10-2022 Urea nitrogen [Mass/Vol] 7 mg/dL 9-23 [facility] Serum or plasma urea nitroge n measurement (mass/volume)Ordered By: Estela Varma on 04-10-2022 Urea nitrogen [Mass/Vol] 7 mg/dL 02-03 [facility] TSH DL <= 0.005 mIU/L QnOrde red By: Estela Varma on 04-10-2022 TSH Qn 2.57 m[IU]/L 0.45-5.33 [facility] Troponin I.cardiac [Mass/vol ume] in Serum or Plasma by High sensitivity methodOrdered By: Kali Longo on 04-10-2022 Troponin I.cardiac High sensitivity method [Mass/Vol] 5 pg/mL [facility] Creatinine and Glomerular fi ltration rate.predicted panel (S/P/Bld)Ordered By: Estela Varma on 01-03-2022 Creatinine [Mass/Vol] 0.69 mg/dL 0.64-1.27 [facility] Estimated glomerular filtrat ion rate (GFR) non- AmericanOrdered By: Estela Varma on 01-03-2022 GFR/1.73 sq M.predicted among non-blacks MDRD (S/P/Bld) [Vol rate/Area] > 60 mL/Min [facility] No Panel InformationOrdered By: Estela Varma on 01-03-2022 Estimated GFR () > 60 mL/Min [facility] Comment on above: GFR estimated refere nce range: According to KDOQI guidelines, <60 ml/min/1.73m2 is sufficient to diagnose a patient with chronic kidney disease. Pharmacy Creatinine Clearance (Chem 122.86 [facility] Serum or plasma urea nitroge n measurement (mass/volume)Ordered By: Estela Varma on 01-03-2022 Urea nitrogen [Mass/Vol] 3 mg/dL 02-03 [facility] Office Visit (Cardiology)on 11-29-2021 Follow-up visit Diagnoses/Problems Assessed Lung cancer (162.9) (C34.90) Chest pain (786.50) (R07.9) Former smoker (V15.82) (Z87.891) quit 2020 1ppd Body mass index (BMI) of 20.0 to 20.9 in adult (V85.1) (Z68.20) COPD (chronic obstructive pulmonary disease) (496) (J44.9) Orders Health Maintenance Depression Follow-up Visit Outpatient Follow-up Status: Complete Done: [id number] SocHx: Former smoker Tobacco Use Screening; Status:Complete; Done: [id number] Patient Instructions By signing my name below, [...] Complaint Follow up Heart Cath results. 56-year-old Afro-[place] gentleman returns with chief complaints of chest [...] catheterization performed this year Recommendations: We did counseling program leader him on seeking further assistance in regards [...] negative for complaint. Vitals Vital Signs Recorded: [id number] 09:05AM Heart Rate96, R Radial Ramogffe503, RUE, Sitting Ewlnqoegr05, RUE, Sitting Blood Pressure Cuff SizeAdult Height6 ft Uzoqpe959 lb 8 oz BMI Wfnsrewxqs43.28 kg/m2 BSA Calculated1.88 Tobacco Useb) No (more content not included)... Normal [facility] CARDIAC SONIA 3-6on 2 CK [Catalytic activity/Vol] 55 U/L Normal 39-308 [facility] Comment on above: Performed By: #### C MREP #### [facility] [address] [place] [address] Dr. Sushant Pradhan CK.MB [Mass/Vol] 1.25 ng/mL Normal <=3.60 [facility] Comment on above: Performed By: #### C MREP #### [facility] [address] [address] [address] Sushant Pradhan HSTROP 4.5 pg/mL Normal 4.0-76.1 [facility] Comment on above: Result Comment: CUT- OFF POINTS HAVE BEEN ESTABLISHED BASED ON THE FOURTH UNIVERSAL DEFINITIONS OF MYOCARDIAL INFARCTION. THE UPPER REFERENCE LIMIT (URL) OF TROPONIN, DEFINED THE 99TH PERCENTILE OF cTnI DISTRIBUTION IN A REFERENCE POPULATION, HAS BEEN CONFIRMED THE DECISION THRESHOLD FOR [place] DIAGNOSIS. Performed By: #### C MREP #### [facility] [address] [place] [address] Dr. Sushant Pradhan CBC AUTO DIFFon 11-24-2021 BASO # 0.0 103/ul Normal 0.0-0.1 [facility] Comment on above: Performed By: #### C BC #### [facility] [address] [place] [address] Dr. Sushant Pradhan Basophils/100 WBC (Bld) 0.2 % Normal 0.2-2.0 [facility] Comment on above: Performed By: #### C BC #### [facility] [address] [address] [address] Sushant Pradhan EO # 0.0 103/ul Normal 0.0-0.7 [facility] Comment on above: Performed By: #### C BC #### [facility] [address] [place] [address] Dr. Sushant Pradhan Eosinophils/100 WBC (Bld) 0.0 % Critically low 0.9-7.0 [facility] Comment on above: Performed By: #### C BC #### [facility] [address] [address] [address] Sushant Pradhan Erythrocyte distribution width (RBC) [Ratio] 14.7 % Normal 11.0-15.0 [facility] Comment on above: Performed By: #### C BC #### [facility] [address] [place] [address] Dr. Sushant Pradhan Hematocrit (Bld) [Volume fraction] 35.5 % Critically low 42.0-54.0 [facility] Comment on above: Performed By: #### C BC #### [facility] [address] [place] [address] Dr. Sushant Pradhan Hemoglobin (Bld) [Mass/Vol] 12.8 g/dL Critically low 14.0-18.0 [facility] Comment on above: Performed By: #### C BC #### [facility] [address] [place] [address] Dr. Sushant Pradhan IG # 0.01 10e3/ul Normal 0.00-0.03 [facility] Comment on above: Performed By: #### C BC #### [facility] [address] [place] [address] Dr. Sushant Pradhan IG % 0.2 % Normal 0.0-0.5 [facility] Comment on above: Performed By: #### C BC #### [facility] [address] [place] [address] Dr. Sushant Pradhan LYMPH # 0.5 103/ul Critically low 1.2-3.8 [facility] Comment on above: Performed By: #### C BC #### [facility] [address] [place] [address] Dr. Sushant Pradhan Lymphocytes/100 WBC (Bld) 8.2 % Critically low 20.5-60.0 [facility] Comment on above: Performed By: #### C BC #### [facility] [address] [place] [address] Dr. Sushant Pradhan MANUAL DIFF REQ NO Normal [facility] Comment on above: Performed By: #### C BC #### [facility] [address] [address] [address] Sushant Pradhan MCH (RBC) [Entitic mass] 32.5 pg Normal 25.9-34.0 [facility] Comment on above: Performed By: #### C BC #### [facility] [address] [place] [address] Dr. Sushant Pradhan MCHC (RBC) [Mass/Vol] 36.1 g/dL Critically high 29.9-35.2 [facility] Comment on above: Performed By: #### C BC #### [facility] [address] [place] [address] Dr. Sushant Pradhan MCV (RBC) [Entitic vol] 90.1 fL Normal 80.0-94.0 [facility] Comment on above: Performed By: #### C BC #### [facility] [address] [place] [address] Dr. Sushant Pradhan MONO # 0.2 103/ul Critically low 0.3-0.8 [facility] Comment on above: Performed By: #### C BC #### [facility] [address] [place] [address] Dr. Sushant Pradhan Monocytes/100 WBC (Bld) 3.5 % Normal 1.7-12.0 [facility] Comment on above: Performed By: #### C BC #### [facility] [address] [place] [address] Dr. Sushant Pradhan NEUT # 4.8 103/ul Normal 1.4-6.5 [facility] Comment on above: Performed By: #### C BC #### [facility] [address] [place] [address] Dr. Sushant Pradhan Neutrophils/100 WBC (Bld) 87.9 % Critically high 43.0-75.0 [facility] Comment on above: Performed By: #### C BC #### [facility] [address] [place] [address] Dr. Sushant Pradhan Platelet mean volume (Bld) [Entitic vol] 9.4 fL Critically low 9.5-13.5 [facility] Comment on above: Performed By: #### C BC #### [facility] [address] [address] [address] Sushant Pradhan PLT 135 103/ul Critically low 150-450 [facility] Comment on above: Performed By: #### C BC #### [facility] [address] [address] [address] Sushant Pradhan RBC 3.94 106/ul Critically low 4.70-6.10 [facility] Comment on above: Performed By: #### C BC #### [facility] [address] [address] [address] Sushant Pradhan WBC 5.5 103/ul Normal 4.0-11.0 [facility] Comment on above: Performed By: #### C BC #### [facility] [address] [address] [address] Sushant Pradhan LIPID PROFILEon 11-24-2021 CHOL-HDL RATIO NORM SEE BELOW Normal [facility] Comment on above: Result Comment: 3.3 - 4.4 LOW RISK 4.4 - 7.1 AVERAGE RISK 7.1 - 11.0 MODERATE RISK >11.0 HIGH RISK Performed By: #### L IPID, BMP #### [facility] [address] [place] [address] Dr. Sushant Pradhan Cholesterol [Mass/Vol] 126 mg/dL Normal <=200 [facility] Comment on above: Performed By: #### L IPID, BMP #### [facility] [address] [place] [address] Dr. Sushant Pradhan Cholesterol in HDL [Mass/Vol] 73 mg/dL Critically high 40-60 [facility] Comment on above: Performed By: #### L IPID, BMP #### [facility] [address] [place] [address] Dr. Sushant Pradhan Cholesterol in LDL [Mass/Vol] 44.2 mg/dL Normal [facility] Comment on above: Performed By: #### L IPID, BMP #### [facility] [address] [address] [address] Sushant Pradhan Cholesterol.total/Cho lesterol in HDL [Mass ratio] 1.7 {ratio} Normal [facility] Comment on above: Performed By: #### L IPID, BMP #### [facility] [address] [address] [address] Sushant Pradhan HDL NORMAL > or = 60 mg/dl - LO W CARDIOVASCULAR RISK <40 mg/dl - HIGH CARDIOVASCULAR RISK Normal [facility] Comment on above: Performed By: #### L IPID, BMP #### [facility] [address] [address] [address] Sushant Pradhan LDL CALC NORMAL SEE BELOW Normal [facility] Comment on above: Result Comment: <100 mg/dl OPTIMAL 100 - 129 mg/dl NEAR OR ABOVE OPTIMAL 130 - 159 mg/dl BORDERLINE HIGH 160 - 189 mg/dl HIGH >190 mg/dl VERY HIGH Performed By: #### L IPID, BMP #### [facility] [address] [address] [address] Sushant Pradhan Triglyceride [Mass/Vol] 44 mg/dL Normal <=150 [facility] Comment on above: Performed By: #### L IPID, BMP #### [facility] [address] [address] [address] Sushant Pradhan VLDL CALC 8.8 mg/dL Normal [facility] Comment on above: Performed By: #### L IPID, BMP #### [facility] [address] [address] [address] Sushant Pradhan NM STRESS/REST MULTIon 11-24 NM STRESS/REST MULTI Patient: EDISON ECHOLS DIMAS Mosqueda. Exam Date: 11/24/2021 : 1965 Gender:M Ordering : DR LIZBET LARA . Admission #: [id number] Family : Order #: [id number] CLICK HERE TO VIEW EXAM RADIOLOGY REPORT [...] Pagan MD on 11/24/2021 at 15:[address] [facility] PROF CHEM 8 (BAS METB)on Anion gap [Moles/Vol] 10.7 mmol/L Normal [facility] Comment on above: Performed By: #### L IPID, BMP #### [facility] [address] [place] [address] Dr. Sushant Pradhan Calcium [Mass/Vol] 8.5 mg/dL Normal 8.5-10.1 [facility] Comment on above: Performed By: #### L IPID, BMP #### [facility] [address] [place] [address] Dr. Sushant Pradhan Chloride [Moles/Vol] 96 mmol/L Critically low 98-107 [facility] Comment on above: Performed By: #### L IPID, BMP #### [facility] [address] [address] [address] Sushant Pradhan CO2 [Moles/Vol] 22.0 mmol/L Normal 21.0-32.0 [facility] Comment on above: Performed By: #### L IPID, BMP #### [facility] [address] [address] [address] Sushant Pradhan Creatinine [Mass/Vol] 1.04 mg/dL Normal 0.70-1.30 [facility] Comment on above: Performed By: #### L IPID, BMP #### [facility] [address] [address] [address] Sushant Pradhan EGFR-AF ZIMBABWEAN >60 Normal >=60 [facility] Comment on above: Performed By: #### L IPID, BMP #### [facility] [address] [address] [address] Sushant Pradhan EGFR-NON AF ZIMBABWEAN >60 Normal >=60 [facility] Comment on above: Performed By: #### L IPID, BMP #### [facility] [address] [address] [address] Sushant Pradhan Glucose [Mass/Vol] 139 mg/dL Critically high 74-106 [facility] Comment on above: Performed By: #### L IPID, BMP #### [facility] [address] [place] [address] Dr. Sushant Pradhan Potassium [Moles/Vol] 4.2 mmol/L Normal 3.5-5.1 [facility] Comment on above: Performed By: #### L IPID, BMP #### [facility] [address] [place] [address] Dr. Sushant Pradhan Sodium [Moles/Vol] 127 mmol/L Critically low 136-145 [facility] Comment on above: Performed By: #### L IPID, BMP #### [facility] [address] [place] [address] Dr. Sushant Pradhan Urea nitrogen [Mass/Vol] 12.0 mg/dL Normal 7.0-18.0 [facility] Comment on above: Performed By: #### L IPID, BMP #### [facility] [address] [place] [address] Dr. Sushant Pradhan Urea nitrogen/Creatinine [Mass ratio] 11.5 mg/mg Normal [facility] Comment on above: Performed By: #### L IPID, BMP #### [facility] [address] [address] [address] Sushant Pradhan BNPon 11-23-2021 Natriuretic peptide B (Bld) [Mass/Vol] 189.0 pg/mL Normal <=900.0 [facility] Comment on above: Performed By: #### B [employer]ILE [employer]ING [employer]OT[employer]AR MECHANIC, HSTROPN, BMP #### [facility] [address] [place] [address] Dr. Sushant Pradhan CARDIAC SONIA 3-6on 2 CK [Catalytic activity/Vol] 73 U/L Normal 39-308 [facility] Comment on above: Performed By: #### C MREP #### [facility] [address] [place] [address] Dr. Sushant Pradhan CK.MB [Mass/Vol] 1.78 ng/mL Normal <=3.60 [facility] Comment on above: Performed By: #### C MREP #### [facility] [address] [place] [address] Dr. Sushant Pradhan HSTROP 4.2 pg/mL Normal 4.0-76.1 [facility] Comment on above: Result Comment: CUT- OFF POINTS HAVE BEEN ESTABLISHED BASED ON THE FOURTH UNIVERSAL DEFINITIONS OF MYOCARDIAL INFARCTION. THE UPPER REFERENCE LIMIT (URL) OF TROPONIN, DEFINED THE 99TH PERCENTILE OF cTnI DISTRIBUTION IN A REFERENCE POPULATION, HAS BEEN CONFIRMED THE DECISION THRESHOLD FOR [place] DIAGNOSIS. Performed By: #### C MREP #### [facility] [address] [place] [address] Dr. Sushant Pradhan CBC AUTO DIFFon 11-23-2021 BASO # 0.0 103/ul Normal 0.0-0.1 [facility] Comment on above: Performed By: #### C BC #### [facility] [address] [place] [address] Dr. Sushant Pradhan Basophils/100 WBC (Bld) 0.5 % Normal 0.2-2.0 [facility] Comment on above: Performed By: #### C BC #### [facility] [address] [place] [address] Dr. Sushant Pradhan EO # 0.1 103/ul Normal 0.0-0.7 [facility] Comment on above: Performed By: #### C BC #### [facility] [address] [place] [address] Dr. Sushant Pradhan Eosinophils/100 WBC (Bld) 0.9 % Normal 0.9-7.0 [facility] Comment on above: Performed By: #### C BC #### [facility] [address] [place] [address] Dr. Sushant Pradhan Erythrocyte distribution width (RBC) [Ratio] 15.3 % Critically high 11.0-15.0 [facility] Comment on above: Performed By: #### C BC #### [facility] [address] [place] [address] Dr. Sushant Pradhan Hematocrit (Bld) [Volume fraction] 38.7 % Critically low 42.0-54.0 [facility] Comment on above: Performed By: #### C BC #### [facility] [address] [place] [address] Dr. Sushant Pradhan Hemoglobin (Bld) [Mass/Vol] 14.0 g/dL Normal 14.0-18.0 [facility] Comment on above: Performed By: #### C BC #### [facility] [address] [place] [address] Dr. Sushant Pradhan IG # 0.01 10e3/ul Normal 0.00-0.03 [facility] Comment on above: Performed By: #### C BC #### [facility] [address] [place] [address] Dr. Sushant Pradhan IG % 0.2 % Normal 0.0-0.5 [facility] Comment on above: Performed By: #### C BC #### [facility] [address] [place] [address] Dr. Sushant Pradhan LYMPH # 1.1 103/ul Critically low 1.2-3.8 [facility] Comment on above: Performed By: #### C BC #### [facility] [address] [place] [address] Dr. Sushant Pradhan Lymphocytes/100 WBC (Bld) 17.2 % Critically low 20.5-60.0 [facility] Comment on above: Performed By: #### C BC #### [facility] [address] [place] [address] Dr. Sushant Pradhan MANUAL DIFF REQ NO Normal [facility] Comment on above: Performed By: #### C BC #### [facility] [address] [place] [address] Dr. Sushant Pradhan MCH (RBC) [Entitic mass] 32.7 pg Normal 25.9-34.0 [facility] Comment on above: Performed By: #### C BC #### [facility] [address] [place] [address] Dr. Sushant Pradhan MCHC (RBC) [Mass/Vol] 36.2 g/dL Critically high 29.9-35.2 [facility] Comment on above: Performed By: #### C BC #### [facility] [address] [place] [address] Dr. Sushant Pradhan MCV (RBC) [Entitic vol] 90.4 fL Normal 80.0-94.0 [facility] Comment on above: Performed By: #### C BC #### [facility] [address] [place] [address] Dr. Sushant Pradhan MONO # 0.5 103/ul Normal 0.3-0.8 [facility] Comment on above: Performed By: #### C BC #### [facility] [address] [place] [address] Dr. Sushant Pradhan Monocytes/100 WBC (Bld) 7.8 % Normal 1.7-12.0 [facility] Comment on above: Performed By: #### C BC #### [facility] [address] [place] [address] Dr. Sushant Pradhan NEUT # 4.7 103/ul Normal 1.4-6.5 [facility] Comment on above: Performed By: #### C BC #### [facility] [address] [place] [address] Dr. Sushant Pradhan Neutrophils/100 WBC (Bld) 73.4 % Normal 43.0-75.0 [facility] Comment on above: Performed By: #### C BC #### [facility] [address] [place] [address] Dr. Sushant Pradhan Platelet mean volume (Bld) [Entitic vol] 9.1 fL Critically low 9.5-13.5 [facility] Comment on above: Performed By: #### C BC #### [facility] [address], [place] [address] Dr. Sushant Pradhan PLT 153 103/ul Normal 150-450 [facility] Comment on above: Performed By: #### C BC #### [facility] [address] [address] [address] Sushant Pradhan RBC 4.28 106/ul Critically low 4.70-6.10 [facility] Comment on above: Performed By: #### C BC #### [facility] [id number] Sushant Pradhan WBC 6.4 103/ul Normal 4.0-11.0 [facility] Comment on above: Performed By: #### C BC #### [facility] [address] [place] [address] Dr. Sushant Pradhan CTA CHEST WO W [...] by: MARCE PAGAN Date: 2021-11-23 15:[address] [facility] Covid-19 PCR (CVDTBH)on 11-11 SARS-CoV-2 (COVID-19) RNA DEANA+probe Ql (Unsp spec) Not detected Normal NOT DETECTED [facility] Comment on above: Result [...] for this test is supported by the [place] of Health and Human Service's declaration that [...] used). Performed By: #### C BC #### [facility] [address] [place] [address] Dr. Sushant Pradhan PROF CHEM 8 (BAS METB)on Anion gap [Moles/Vol] 13.9 mmol/L Normal [facility] Comment on above: Performed By: #### B TEXTILE CLOTHING AND FOOTWEAR MECHANIC, HSTROPN, BMP #### [facility] [address] [address] [address] Sushant Pradhan Calcium [Mass/Vol] 8.4 mg/dL Critically low 8.5-10.1 [facility] Comment on above: Performed By: #### B TEXTILE CLOTHING AND FOOTWEAR MECHANIC, HSTROPN, BMP #### [facility] [address] [address] [address] Sushant Pradhan Chloride [Moles/Vol] 94 mmol/L Critically low 98-107 [facility] Comment on above: Performed By: #### B TEXTILE CLOTHING AND FOOTWEAR MECHANIC, HSTROPN, BMP #### [facility] [address] [address] [address] Sushant Pradhan CO2 [Moles/Vol] 24.7 mmol/L Normal 21.0-32.0 [facility] Comment on above: Performed By: #### B TEXTILE CLOTHING AND FOOTWEAR MECHANIC, HSTROPN, BMP #### [facility] [address] [place] [address] Dr. Sushant Pradhan Creatinine [Mass/Vol] 0.97 mg/dL Normal 0.70-1.30 [facility] Comment on above: Performed By: #### B TEXTILE CLOTHING AND FOOTWEAR MECHANIC, HSTROPN, BMP #### [facility] [address] [place] [address] Dr. Sushant Pradhan EGFR-AF ZIMBABWEAN >60 Normal >=60 [facility] Comment on above: Performed By: #### B TEXTILE CLOTHING AND FOOTWEAR MECHANIC, HSTROPN, BMP #### [facility] [address] [place] [address] Dr. Sushant Pradhan EGFR-NON AF ZIMBABWEAN >60 Normal >=60 [facility] Comment on above: Performed By: #### B TEXTILE CLOTHING AND FOOTWEAR MECHANIC, HSTROPN, BMP #### [facility] [address] [place] [address] Dr. Sushant Pradhan Glucose [Mass/Vol] 76 mg/dL Normal 74-106 [facility] Comment on above: Performed By: #### B TEXTILE CLOTHING AND FOOTWEAR MECHANIC, HSTROPN, BMP #### [facility] [address] [place] [address] Dr. Sushant Pradhan Potassium [Moles/Vol] 4.6 mmol/L Normal 3.5-5.1 [facility] Comment on above: Performed By: #### B TEXTILE CLOTHING AND FOOTWEAR MECHANIC, HSTROPN, BMP #### [facility] [address] [place] [address] Dr. Sushant Pradhan Sodium [Moles/Vol] 128 mmol/L Critically low 136-145 [facility] [place] [facility] Comment on above: Performed By: #### B TEXTILE CLOTHING AND FOOTWEAR MECHANIC, HSTROPN, BMP #### [facility] [address] [place] [address] Dr. Sushant Pradhan Urea nitrogen [Mass/Vol] 9.0 mg/dL Normal 7.0-18.0 [facility] Comment on above: Performed By: #### B TEXTILE CLOTHING AND FOOTWEAR MECHANIC, HSTROPN, BMP #### [facility] [address], [place] [address] Dr. Sushant Pradhan Urea nitrogen/Creatinine [Mass ratio] 9.3 mg/mg Normal [facility] Comment on above: Performed By: #### B TEXTILE CLOTHING AND FOOTWEAR MECHANIC, HSTROPN, BMP #### [facility] [address], [place] [address] Dr. Sushant Pradhan TROPONIN, HIGH SENSITIVITYon 11-23-2021 HSTROP 4.4 pg/mL Normal 4.0-76.1 [facility] Comment on above: Result Comment: CUT- OFF POINTS HAVE BEEN ESTABLISHED BASED ON THE FOURTH UNIVERSAL DEFINITIONS OF MYOCARDIAL INFARCTION. THE UPPER REFERENCE LIMIT (URL) OF TROPONIN, DEFINED THE 99TH PERCENTILE OF cTnI DISTRIBUTION IN A REFERENCE POPULATION, HAS BEEN CONFIRMED THE DECISION THRESHOLD FOR [place] DIAGNOSIS. Performed By: #### B TEXTILE CLOTHING AND FOOTWEAR MECHANIC, HSTROPN, BMP #### [facility] [address] [place] [address] [address] [address] Sushant Pradhan Laboratory - Chemistry and C hemistry - challengeon 09-09-2021 Cholesterol [Mass/Vol] 125\S\125 below low threshold 140-200 [facility] 250 DO Work Phone: Comment on above: Chol less than 200 m g/dl low risk Chol 201-239 mg/dl borderline risk Chol 240 mg/dl and greater high risk Cholesterol in LDL [Mass/Vol] 46\S\46 Normal 0-100 [facility] 250 DO Work Phone: Comment on above: LDL ATP III CLASSIFI CATION LDL less than 100 mg/dL Optimal LDL 100-129 mg/dL Near or above optimal LDL 130-159 mg/dL Borderline high LDL 160-189 mg/dL High LDL greater than 189 mg/dL Very high Laboratory - Microbiology an d Antimicrobial susceptibilityon 09-09-2021 SARS-CoV-2 (COVID-19) RNA DEANA+probe Ql (Unsp spec) [facility] 250 DO Work Phone: No Panel Informationon 09-09 78.5\S\78.5 above high threshold 25.1-36.5 [facility] 250 DO Work Phone: Comment on above: PERFORMED BY:[facility] [place] [place], [place] [id number] MEDICAL DIRECTORCATY DELCID M.D. 1.0\S\1.0 Normal [facility] 250 DO Work Phone: [...] valves: 3 - 4.5 11.5\S\11.5 Normal 9.0-12.9 [facility] 250 DO Work Phone: 1.8\S\1.8 Normal <5.0 [facility] 250 DO Work Phone: Comment on above: PERFORMED BY:[facility], [place] [id number] MEDICAL DIRECTORCATY DELCID M.D. 11\S\11 Normal [facility] 250 DO Work Phone: 57\S\57 Normal 35-149 [facility] 250 DO Work Phone: Comment on above: TRIG ATP III CLASSIF ICATION TRIG less than 150 mg/dL Normal TRIG 150-199 mg/dL Borderline high TRIG 200-500 mg/dL High TRIG greater than 500 mg/dL Very high Standard traceable to the Center for Disease Conrtrol and Prevention (CDC) test method. 68\S\68 Normal 29-71 [facility] 250 DO Work Phone: Comment on above: HDL CHOL ATP-III CLA SSIFICATION Cardiovascular Risk HDL > or equal to 60 mg/dL LOW HDL < 40 mg/dL HIGH Negative Normal Negative [facility] 250 DO Work Phone: Comment on above: This is a duplicate Jonna SARS Antigen (EROS) result to be used for statistical tracking purpose only.PERFORMED BY:[facility] [place] [id number] MEDICAL DIRECTORCATY DELCID M.D. Office Visit (Cardiology)on [...] IO EKG Electrocardiogram- 12 Lead; Status:Complete; Done: [id number] Lung cancer PHQ2 Screen Positive; Status:Complete - Retrospective Authorization; Done: [id number] SocHx: Former smoker Tobacco Use Screening; Status:Complete; Done: 08Sep2021 Patient Instructions By signing my name below, I, Karin Malloy LPN,Andreinaibe, attest that this documentation has [...] pain and dyspnea. Patient is a 56-year-old -[place] gentleman returns and seen in cardiology consultation [...] negative for complaint. Vitals Vital Signs Recorded: [id number] 10:09AMRecorded: [id number] 10:05AM [id number], LUE, Lyxevlu466, RUE, Sitting Umgljlibk90, LUE, Zceyrmr88, RUE, Sitting Heart Rate96, Apical Height6 ft [id number] lb BMI Uswbyysmya47.16 kg/m2 BSA (more content not included)... Normal [place] Tobacco Screening.on 022 Adult depression screening assessment Yes [facility] 250 DO Work Phone: Fall risk assessment c) Not medically indicated [facility] 250 DO Work Phone: Tobacco use status CP b) No [facility] 250 DO Work Phone: Tobacco Screening. 3-Nearly every day [facility] 250 DO Work Phone: [phone] Tobacco Screening. 2-More than half the days [facility] 250 DO Work Phone: Tobacco Screening. 0-Not at all [facility] 250 DO Work Phone: Tobacco Screening. Extremely Difficult [facility] 250 DO Work Phone: Albumin [Mass/volume] in Ser um or PlasmaOrdered By: Estela Varma on 09-02-2021 Albumin [Mass/Vol] 3.8 g/dL 3.2-5.5 [facility] Basophils Auto (Bld) [#/Vol] Ordered By: Estela Varma on 09-02-2021 Basophils (Bld) [#/Vol] 0.0 10*3/uL 0.0-0.2 [facility] Basophils/100 WBC Auto (Bld) Ordered By: Estela Varma on 09-02-2021 Basophils/100 WBC (Bld) 0.7 % . [facility] Eosinophils Auto (Bld) [#/Vo l]Ordered By: Estela Varma on 09-02-2021 Eosinophils (Bld) [#/Vol] 0.2 10*3/uL 0.0-0.45 [facility] Eosinophils/100 WBC Auto (Bl d)Ordered By: Estela Varma on 09-02-2021 Eosinophils/100 WBC (Bld) 4.2 % . [facility] Erythrocyte distribution wid th Auto (RBC) [Ratio]Ordered By: Estela Varma on 09-02-2021 Erythrocyte distribution width (RBC) [Ratio] 15.7 % 12.0-14.8 [facility] Globulin Calc (S) [Mass/Vol] Ordered By: Estela Varma on 09-02-2021 Globulin (S) [Mass/Vol] 3.4 g/dL [facility] Glucose Glucometer (BldC) [M ass/Vol]Ordered By: George Ash on 09-02-2021 Glucose [Mass/Vol] 82 mg/dL [facility] Comment on above: Random Glucose Refer ence Range is dependent on time and content of last meal. Glucose of more than 200 mg/dL in a nonstressed, ambulatory subject supports the diagnosis of Diabetes Mellitus. Hematocrit Auto (Bld) [Volum e fraction]Ordered By: Estela Varma on 09-02-2021 Hematocrit (Bld) [Volume fraction] 42.4 % 38.8-50.0 [facility] Hemoglobin [Mass/volume] in BloodOrdered By: Estela Varma on 09-02-2021 Hemoglobin (Bld) [Mass/Vol] 14.6 g/dL 13.0-17.0 [facility] Laboratory - Hematology and Cell countsOrdered By: Estela Varma on 09-02-2021 Nucleated RBC/100 WBC (Bld) [Ratio] 0.1 % 0-0.5 [facility] Leukocytes [#/volume] in Blo od by Automated countOrdered By: Estela Varma on 09-02-2021 WBC (Bld) [#/Vol] 5.0 10*3/uL 4.5-11.0 [facility] Lymphocytes Auto (Bld) [#/Vo l]Ordered By: Estela Varma on 09-02-2021 Lymphocytes (Bld) [#/Vol] 0.9 10*3/uL 1.00-4.8 [facility] Lymphocytes/100 WBC Auto (Bl d)Ordered By: Estela Varma on 09-02-2021 Lymphocytes/100 WBC (Bld) 18.2 % . [facility] MCH Auto (RBC) [Entitic mass ]Ordered By: Estela Varma on 09-02-2021 MCH (RBC) [Entitic mass] 32.6 pg 27.5-35.2 [facility] MCHC Auto (RBC) [Mass/Vol]Or dered By: Estela Varma on 09-02-2021 MCHC (RBC) [Mass/Vol] 34.4 g/dL 32.5-35.6 [facility] MCV Auto (RBC) [Entitic vol] Ordered By: Estela Varma on 09-02-2021 MCV (RBC) [Entitic vol] 94.8 fL 83.5-101 [facility] Monocytes Auto (Bld) [#/Vol] Ordered By: Estela Varma on 09-02-2021 Monocytes (Bld) [#/Vol] 0.4 10*3/uL 0.0-0.8 [facility] Monocytes/100 WBC Auto (Bld) Ordered By: Estela Varma on 09-02-2021 Monocytes/100 WBC (Bld) 7.9 % . [facility] Neutrophils Auto (Bld) [#/Vo l]Ordered By: Estela Varma on 09-02-2021 Neutrophils (Bld) [#/Vol] 3.5 10*3/uL 1.8-7.7 [facility] Neutrophils/100 WBC Auto (Bl d)Ordered By: Estela Varma on 09-02-2021 Neutrophils/100 WBC (Bld) 69.0 % . [facility] Platelet mean volume Auto (B ld) [Entitic vol]Ordered By: Estela Varma on 09-02-2021 Platelet mean volume (Bld) [Entitic vol] 7.0 fL 6.6-10.1 [facility] Platelets Auto (Bld) [#/Vol] Ordered By: Estela Varma on 09-02-2021 Platelets (Bld) [#/Vol] 186 10*3/uL 150-450 [facility] Protein [Mass/volume] in Ser um or PlasmaOrdered By: Estela Varma on 09-02-2021 Protein [Mass/Vol] 7.2 g/dL 6.1-7.9 [facility] RBC Auto (Bld) [#/Vol]Ordere d By: Estela Varma on 09-02-2021 RBC (Bld) [#/Vol] 4.48 10*6/uL 3.90-5.60 [facility] Serum or plasma alanine glynn otransferase measurement without P-5'-P (enzymatic activiOrdered By: Estela Varma on 09-02-2021 ALT No additional P-5'-P [Catalytic activity/Vol] 13 U/L 10-60 [facility] Serum or plasma albumin/glob ulin mass ratioOrdered By: Estela Varma on 09-02-2021 Albumin/Globulin [Mass ratio] 1.1 {ratio} [facility] Serum or plasma alkaline abhijit sphatase measurement (enzymatic activity/volume)Ordered By: Estela Varma on 09-02-2021 ALP [Catalytic activity/Vol] 130 U/L 32-92 [facility] Serum or plasma aspartate am inotransferase measurement (enzymatic activity/volume)Ordered By: Estela Varma on 09-02-2021 AST [Catalytic activity/Vol] 18 U/L 10-42 [facility] Serum or plasma calcium ledy urement (mass/volume)Ordered By: Estela Varma on 09-02-2021 Calcium [Mass/Vol] 9.0 mg/dL 8.2-10.2 [facility] Serum or plasma carcinoembry onic antigen measurement (mass/volume)Ordered By: Estela Varma on 09-02-2021 Carcinoembryonic Ag [Mass/Vol] 11.4 ng/mL 0.0-3.0 [facility] Serum or plasma chloride carlyn surement (moles/volume)Ordered By: Estela Varma on 09-02-2021 Chloride [Moles/Vol] 100 mmol/L 95-114 [facility] Serum or plasma glucose ledy urement (mass/volume)Ordered By: Estela Varma on 09-02-2021 Glucose [Mass/Vol] 78 mg/dL 70-100 [facility] Comment on above: ADA recommended refe rence rangeRandom Glucose Reference Range is dependent on time and content of last meal. Glucose of more than 200 mg/dL in a nonstressed, ambulatory subject supports the diagnosis of Diabetes Mellitus. Serum or plasma potassium me asurement (moles/volume)Ordered By: Estela Varma on 09-02-2021 Potassium [Moles/Vol] 4.3 mmol/L 3.5-5.1 [facility] Serum or plasma sodium measu rement (moles/volume)Ordered By: Estela Varma on 09-02-2021 Sodium [Moles/Vol] 133 mmol/L 136-146 [facility] Serum or plasma total biliru bin measurement (mass/volume)Ordered By: Estela Varma on 09-02-2021 Bilirubin [Mass/Vol] 0.6 mg/dL 0.3-1.2 [facility] Serum or plasma total carbon dioxide measurement (moles/volume)Ordered By: Estela Varma on 09-02-2021 CO2 [Moles/Vol] 23.9 mmol/L 22.0-30.0 [facility] TSH DL <= 0.005 mIU/L QnOrde red By: George Ash on 01-31-2021 TSH Qn 1.65 m[IU]/L 0.45-5.33 [facility] Lipid Panel Fastingon 2020 Cholesterol [Mass/Vol] 145 mg/dL Normal 0-199 [facility] Comment on above: Result Comment: ATP III Cholesterol classification is Desirable. Performed By: #### L IPDF #### [facility] [address] [place] [address] HDL Cholesterol Fasting 49 mg/dL Normal 40-59 [facility] Comment on above: Result Comment: ATP [...] CHD Performed By: #### L IPDF #### [facility] [address] [place] [address] LDL Cholesterol (Calculated) Fasting 76 mg/dL Normal 0-129 [facility] Comment on above: Result Comment: ATP III LDL Classification is Optimal. Performed By: #### L IPDF #### [facility] [address] [place] [address] Triglycerides Fasting 98 mg/dL Normal 0-150 [facility] Comment on above: Result Comment: ATP III Triglycerides Classification is Normal. Performed By: #### L IPDF #### [facility] [address] [place] [address] Vitamin B12 and Folateon Cobalamin (Vitamin B12) [Mass/Vol] 417 pg/mL Normal 232-1245 [facility] Comment on above: Performed By: #### B 12FO #### [facility] [address] [place] [address] Folate 13.4 ng/mL Normal 7.3-26.1 [facility] Comment on above: Result Comment: As o f 15, the methodology has changed. Results from this methodology should not be compared with results from previous methodology. Performed By: #### B 12FO #### [facility] [address] [place] [address] Vitamin Don 08-20-2020 Vitamin D 33.1 ng/mL Normal 30.0-100.0 [facility] Comment on above: Result Comment: (30- 100 ng/mL) Optimum Level This assay accurately quantifies the sum of vitamin D3, 25-Hydroxy and vitamin D2, 25-Hyroxy. Performed By: #### V ITD #### [facility] [address] [place] [address] Thyroxine (T4) free [Mass/vo lume] in Serum or Plasmaon 08-16-2020 Free T4 [Mass/Vol] 0.79 ng/dL 0.61-1.12 [facility] Lipid Profileon 08-06-2020 Cholesterol [Mass/Vol] 132 mg/dL Normal <200 [facility] Comment on above: Result Comment: Cholesterol Guidelines: <200 Desirable 200-240 Borderline >240 Undesirable Performed By: #### L IPR #### [address] [place] [address] Senior Quality Control Technician: Joe Todd MD Cholesterol in HDL [Mass/Vol] 41 mg/dL Normal >40 [facility] Comment on above: Result Comment: HDL Guidelines: <40 Undesirable 40-59 Borderline >59 Desirable Performed By: #### L IPR #### [facility] [address] [place] [address] Senior Quality Control Technician: Joe Todd MD Cholesterol in LDL [Mass/Vol] 72 mg/dL Normal 0-130 [facility] Comment on above: Result Comment: LDL Guidelines: <100 Desirable 100-129 Near to/above Desirable 130-159 Borderline >159 Undesirable Direct (measured) LDL and calculated LDL are not interchangeable tests. Performed By: #### L IPR #### [facility] [employer] [address] [place] [address] Senior Quality Control Technician: Joe Todd MD Cholesterol.total/Cho lesterol in HDL [Mass ratio] 3.2 {ratio} Normal <5 [facility] Comment on above: Performed By: #### L IPR #### [facility] [employer] [address] [place] [address] Senior Quality Control Technician: Joe Todd MD Triglyceride [Mass/Vol] 93 mg/dL Normal <150 [facility] Comment on above: Result Comment: Triglyceride Guidelines: <150 Desirable 150-199 Borderline 200-499 High >499 Very high Based on AHA Guidelines for fasting triglyceride, February 2012. Performed By: #### L IPR #### [facility] [employer] [address], [place] [id number] Senior Quality Control Technician: Joe Todd MD Cholesterol in VLDL [Mass/Vol] NOT REPORTED Normal 06-12 [facility] Comment on above: Performed By: #### L IPR #### [facility] [address], [place] 1560508 Senior Quality Control Technician: Joe Todd MD Direct bilirubin measurement on 07-05-2020 Bilirubin.direct [Mass/Vol] 0.1 mg/dL 0.0-0.4 [facility] Serum or plasma non-glucuron idated bilirubin measurement (mass/volume)on 07-05-2020 Bilirubin.indirect [Mass/Vol] 0.8 mg/dL [facility] Laboratory - Hematology and Cell countson 05-24-2020 WBC (Bld) [#/Vol] 4.9 10*3/uL 4.5-11.0 [facility] Blood anisocytosis detection on 03-08-2020 Anisocytosis Ql (Bld) Slight [facility] No Panel Informationon 03-08 Platelet Estimate Normal Normal [facility] Platelet Morphology Comment Normal Normal [facility] RBC morphologyon 03-08-2020 RBC morphology finding Nom (Bld) N/A [facility] CARDIAC STRESS/REST (DILAN CARDIAL PERFUSION/MIBI)on 03-03-2020 [facility] CARDIAC STRESS/REST (MYOCARDIAL PERFUSION/MIBI) Patient Name: KIRILL ECHOLS STUDY: MYOCARDIAL PERFUSION STRESS TEST WITH LEXISCAN Performing facility: [facility], \[address], [address], \[place] [address] [facility] Provider: mEa Oliveira DO, FACC PCP: Dr. Danni Andrea Supervising provider: Tejal King MD, FACC INDICATION: Chest Pain; HISTORY: Gender: M; Age: 54 y/o ; Height: 182.88 cm; Weight: 71.5056937 kg. HTN; Chest Pain; COPD; Quit smoking in 2020 years ago. COMPARISON: No comparison. ACCESSION NUMBER(S): [id number]; [id number]; [id number] ORDERING CLINICIAN: LUKAS OLIVEIRA TECHNIQUE: ONE DAY [...] comparison. Electronically signed by: TEJAL KING MD [facility] CARDIAC STRESS/REST INJE CTIONon 03-03-2020 [facility] CARDIAC STRESS/REST INJECTION Patient Name: KIRILL ECHOLS STUDY: MYOCARDIAL PERFUSION STRESS TEST WITH LEXISCAN Performing facility: [facility], \[address], [address], \[place] [id number] [facility] Provider: Ema Oliveira DO, [facility] PCP: Dr. Danni Andrea Supervising provider: Tejal King MD, [facility] INDICATION: Chest Pain; HISTORY: Gender: M; Age: 54 y/o ; Height: 182.88 cm; Weight: 71.3988250 kg. HTN; Chest Pain; COPD; Quit smoking in 2020 years ago. COMPARISON: No comparison. ACCESSION NUMBER(S): [id number]; [id number]; [id number] ORDERING CLINICIAN: LUKAS OLIVEIRA TECHNIQUE: ONE DAY [...] comparison. Electronically signed by: TEJAL KING MD [facility] PART 2 STRESS OR REST (N O CHARGE)on 03-03-2020 [facility] PART 2 STRESS OR REST (NO CHARGE) Patient Name: KIRILL ECHOLS STUDY: MYOCARDIAL PERFUSION STRESS TEST WITH LEXISCAN Performing facility: [facility], \[address], [address], \[place] [address] [facility] Provider: Ema Oliveira DO, [facility] PCP: Dr. Danni Andrea Supervising provider: Tejal King MD, [facility] INDICATION: Chest Pain; HISTORY: Gender: M; Age: 54 y/o ; Height: 182.88 cm; Weight: 71.0543557 kg. HTN; Chest Pain; COPD; Quit smoking in 2020 years ago. COMPARISON: No comparison. ACCESSION NUMBER(S): [id number]; [id number]; [id number] ORDERING CLINICIAN: LUKAS OLIVEIRA TECHNIQUE: ONE DAY [...] Electronically signed by: TEJAL KING MD Normal [facility] No Panel Informationon 03-02 Schistocytes Rare [facility] Target cellson 03-02-2020 Target cells LM Ql (Bld) Slight [facility] Basophil percentageon 2019 Eosinophils/100 WBC (Bld) 1 % 1-3 [facility] Blood polychromasia detectio n by light microscopyon 02-24-2020 Polychromasia LM Ql (Bld) Slight [facility] Laboratory - Hematology and Cell countson 02-24-2020 Band form neutrophils/100 WBC (Bld) 13 % 0-5 [facility] Lymphocytes/100 WBC Auto (Bl d)on 02-24-2020 Lymphocytes/100 WBC (Bld) 9 % 18-42 [facility] Monocyte %on 02-24-2020 Monocytes/100 WBC (Bld) 1 % 1-3 [facility] Monocytes/100 WBC Manual cnt (Bld)on 02-24-2020 Monocytes/100 WBC (Bld) 16 % 2-11 [facility] No Panel Informationon 02-23 Dohle Bodies Moderate [facility] Poikilocytosis Slight [facility] Ovalocyte detectionon 2019 Ovalocytes LM Ql (Bld) Slight [facility] Segmented neutrophils/100 WB C Manual cnt (Bld)on 02-24-2020 Segmented neutrophils/100 WBC (Bld) 61 % 50-70 [facility] Hypochromia detectionon 01-13 Hypochromia Ql (Bld) Slight [facility] Macrocytes detectionon 01-19 Macrocytes Ql (Bld) Slight [facility] No Panel Informationon 01-19 Smudge Cells Few [facility] Red blood cell stomatocyte d etectionon 12-09-2019 Stomatocytes LM Ql (Bld) Slight [facility] Respiratory specimen 2019 no mathieu coronavirus RNA detection by probe and target amplifion 11-21-2019 SARS-CoV-2 (COVID-19) RNA DEANA+probe Ql (Resp) Not detected Not Detected [facility] Comment on above: This test was develo ped and its performance characteristicsdetermined by [employer]. This test has not beenFDA cleared or [...] (not detected) result in this assay.Performed at: [place] [address] [address] [facility], [place] [id number] Director: Antonio Chaney MD, Phone: [phone] Basophils/100 WBC Auto (Bld) on 11-18-2019 Basophils/100 WBC (Bld) 1 % 0-2 [facility] Amylaseon 04-28-2018 Amylase enzyme act/vol 130 U/L High 30-110 [facility] Comment on above: Performed By: #### C BCDIF, PT, GBCHEM, GBTSH, LIPA, MG, GBHCV, HAVIGM, HBCAB, HBSAG, RPR ####[facility] [id number] [place], [place] [phone] GGTon 04-28-2018 Gamma glutamyl transferase [Enzymatic activity/volume] in Serum or Plasma 426 U/L High 15-73 [facility] Comment on above: Performed By: #### C BCDIF, PT, GBCHEM, GBTSH, LIPA, MG, GBHCV, HAVIGM, HBCAB, HBSAG, RPR ####[facility] [id number] [place], [place] [phone] Hepatic Function Pnlon 04-28 Albumin mass conc 4.2 g/dL Normal 3.5-5.0 [facility] Comment on above: Performed By: #### C BCDIF, PT, GBCHEM, GBTSH, LIPA, MG, GBHCV, HAVIGM, HBCAB, HBSAG, RPR ####[facility] Jbi09060 [facility], [place] [phone] Alkaline Phos 96 U/L Normal 38-125 [facility] Comment on above: Performed By: #### C BCDIF, PT, GBCHEM, GBTSH, LIPA, MG, GBHCV, HAVIGM, HBCAB, HBSAG, RPR ####[facility] [id number] [facility], [place] [phone] ALT enzyme act/vol 60 U/L Normal 21-72 [facility] Comment on above: Performed By: #### C BCDIF, PT, GBCHEM, GBTSH, LIPA, MG, GBHCV, HAVIGM, HBCAB, HBSAG, RPR ####[facility] [id number] [facility], [place] [phone] AST enzyme act/vol 65 U/L High 17-59 [facility] Comment on above: Performed By: #### C BCDIF, PT, GBCHEM, GBTSH, LIPA, MG, GBHCV, HAVIGM, HBCAB, HBSAG, RPR ####[facility] Ttj63294 [place], [place] [phone] Bilirubin Ql (U) 0.3 mg/dL Normal 0.2-1.3 [facility] Comment on above: Performed By: #### C BCDIF, PT, GBCHEM, GBTSH, LIPA, MG, GBHCV, HAVIGM, HBCAB, HBSAG, RPR ####[facility] Xkq63064 [facility], [place] [phone] Bilirubin.direct mass conc 0.2 mg/dL Normal 0.0-0.4 [facility] Comment on above: Performed By: #### C BCDIF, PT, GBCHEM, GBTSH, LIPA, MG, GBHCV, HAVIGM, HBCAB, HBSAG, RPR ####[facility] [id number] [facility], [place] [phone] Protein mass conc 7.3 g/dL Normal 6.2-8.2 [facility] Comment on above: Performed By: #### C BCDIF, PT, GBCHEM, GBTSH, LIPA, MG, GBHCV, HAVIGM, HBCAB, HBSAG, RPR ####[facility] [id number] [facility] [place] [phone] Lipaseon 04-28-2018 Lipase enzyme act/vol 941 U/L High 23-300 [facility] Comment on above: Performed By: #### C BCDIF, PT, GBCHEM, GBTSH, LIPA, MG, GBHCV, HAVIGM, HBCAB, HBSAG, RPR ####[facility] [id number] [facility], [place] [phone] Phenobarbitalon 04-26-2018 Phenobarbital mass conc ug/mL Low 15.0-40.0 [facility] Comment on above: Performed By: #### C BCDIF, PT, GBCHEM, GBTSH, LIPA, MG, GBHCV, HAVIGM, HBCAB, HBSAG, RPR ####[facility] [id number] [facility], [place] [phone] RPRon 04-25-2018 Reagin Ab RPR Ql (S) Nonreactive Normal Nonreactive [facility] Comment on above: Performed By: #### C BCDIF, PT, GBCHEM, GBTSH, LIPA, MG, GBHCV, HAVIGM, HBCAB, HBSAG, RPR ####[facility] [id number] [facility] [place] [phone] Urinalysison 04-25-2018 Bilirubin Negative Normal Negative [facility] Comment on above: Performed By: #### C BCDIF, PT, GBCHEM, GBTSH, LIPA, MG, GBHCV, HAVIGM, HBCAB, HBSAG, RPR ####[facility] [id number] [facility] [place] [phone] Cast SEE NOTES Normal 0 [facility] Comment on above: Result Comment: >20H yaline Cast Performed By: #### C BCDIF, PT, GBCHEM, GBTSH, LIPA, MG, GBHCV, HAVIGM, HBCAB, HBSAG, RPR ####[facility] Eci47640 [place] [address], [place] [phone] Clarity Nom (U) Cloudy Critically abnormal Clear [facility] Comment on above: Performed By: #### C BCDIF, PT, GBCHEM, GBTSH, LIPA, MG, GBHCV, HAVIGM, HBCAB, HBSAG, RPR ####[facility] Mwz06106 [place] [address], [place] [phone] Color Nom (U) Taylor Critically abnormal Yellow [facility] Comment on above: Performed By: #### C BCDIF, PT, GBCHEM, GBTSH, LIPA, MG, GBHCV, HAVIGM, HBCAB, HBSAG, RPR ####[facility] Xjm34664 [place] [facility], [place] [phone] Crystals SEE NOTES Normal 0 [facility] Comment on above: Result Comment: FewA morphous Performed By: #### C BCDIF, PT, GBCHEM, GBTSH, LIPA, MG, GBHCV, HAVIGM, HBCAB, HBSAG, RPR ####[facility] Qpe59779 [place] [address], [place] [phone] Epithelial Cells Few Normal [facility] Comment on above: Result Comment: Squa mous Epithelial Cells Performed By: #### C BCDIF, PT, GBCHEM, GBTSH, LIPA, MG, GBHCV, HAVIGM, HBCAB, HBSAG, RPR ####[facility] Xlg09573 [place] [address], [place] [phone] Glucose Negative Normal Negative [facility] Comment on above: Performed By: #### C BCDIF, PT, GBCHEM, GBTSH, LIPA, MG, GBHCV, HAVIGM, HBCAB, HBSAG, RPR ####[facility] Wbh77618 [place] [address], [place] [phone] Hemoglobin/Blood Negative Normal Negative [facility] Comment on above: Performed By: #### C BCDIF, PT, GBCHEM, GBTSH, LIPA, MG, GBHCV, HAVIGM, HBCAB, HBSAG, RPR ####[facility] Xpr50115 [facility], [place] [phone] INR Coag RelTime (Bld) 0-3 Normal 0-3 [facility] Comment on above: Performed By: #### C BCDIF, PT, GBCHEM, GBTSH, LIPA, MG, GBHCV, HAVIGM, HBCAB, HBSAG, RPR ####[facility] Qdi91079 [facility], [place] [phone] Ketone Trace Critically abnormal Negative [facility] Comment on above: Performed By: #### C BCDIF, PT, GBCHEM, GBTSH, LIPA, MG, GBHCV, HAVIGM, HBCAB, HBSAG, RPR ####[facility] Qmw55207 [facility], [phone] Leukest Negative Normal Negative [facility] Comment on above: Performed By: #### C BCDIF, PT, GBCHEM, GBTSH, LIPA, MG, GBHCV, HAVIGM, HBCAB, HBSAG, RPR ####[facility] [id number] [facility], [place] [phone] Nitrites Negative Normal Negative [facility] Comment on above: Performed By: #### C BCDIF, PT, GBCHEM, GBTSH, LIPA, MG, GBHCV, HAVIGM, HBCAB, HBSAG, RPR ####[facility] Net42367 [facility], [place] [phone] pH Test strip (U) 5.0 [pH] Normal 5-7 [facility] Comment on above: Performed By: #### C BCDIF, PT, GBCHEM, GBTSH, LIPA, MG, GBHCV, HAVIGM, HBCAB, HBSAG, RPR ####[facility] Qos16485 [facility], [phone] Protein mass conc 100 mg/dl Critically abnormal Negative [facility] Comment on above: Performed By: #### C BCDIF, PT, GBCHEM, GBTSH, LIPA, MG, GBHCV, HAVIGM, HBCAB, HBSAG, RPR ####[facility] [id number] [facility], [place] [phone] Urine Alpesh Comment Many Normal [facility] Comment on above: Result Comment: MUCO US Performed By: #### C BCDIF, PT, GBCHEM, GBTSH, LIPA, MG, GBHCV, HAVIGM, HBCAB, HBSAG, RPR ####[facility] [id number] [facility], [place] [phone] Urine Spec [place] 1.025 Normal 1.005-1.030 [facility] Comment on above: Performed By: #### C BCDIF, PT, GBCHEM, GBTSH, LIPA, MG, GBHCV, HAVIGM, HBCAB, HBSAG, RPR ####[facility] Wch32058 [facility], [place] [phone] Urobilinogen 2.0 mg/dl High 0.0-1.0 [facility] Comment on above: Performed By: #### C BCDIF, PT, GBCHEM, GBTSH, LIPA, MG, GBHCV, HAVIGM, HBCAB, HBSAG, RPR ####[facility] [id number] [facility], [place] [phone] WBC 0-5 Normal 0-5 [facility] Comment on above: Performed By: #### C BCDIF, PT, GBCHEM, GBTSH, LIPA, MG, GBHCV, HAVIGM, HBCAB, HBSAG, RPR ####[facility] Jvl67433 [facility], [place] [phone] CBCDIFon 04-24-2018 Abs Baso 0.02 k/uL Normal 0-0.2 [facility] Comment on above: Performed By: #### C BCDIF, PT, GBCHEM, GBTSH, LIPA, MG, GBHCV, HAVIGM, HBCAB, HBSAG, RPR ####[facility] Hfi13436 [facility] [place], [place] [phone] Abs [place] 1.23 k/uL High 0-0.8 [facility] Comment on above: Performed By: #### C BCDIF, PT, GBCHEM, GBTSH, LIPA, MG, GBHCV, HAVIGM, HBCAB, HBSAG, RPR ####[facility] Clinical Qol08152 [place], [place] [phone] Abs Neut 7.41 k/uL Normal 1.8-7.7 [facility] Comment on above: Performed By: #### C BCDIF, PT, GBCHEM, GBTSH, LIPA, MG, GBHCV, HAVIGM, HBCAB, HBSAG, RPR ####[facility] Hjn50485 [place], [place] [phone] Basophils/100 WBC Auto (Bld) 0.2 % Normal 0-1 [facility] Comment on above: Performed By: #### C BCDIF, PT, GBCHEM, GBTSH, LIPA, MG, GBHCV, HAVIGM, HBCAB, HBSAG, RPR ####[facility] Kfj03424 [place], [place] [phone] Eosinophils Auto #/vol (Bld) 0.38 10*3/uL Normal 0-0.4 [facility] Comment on above: Performed By: #### C BCDIF, PT, GBCHEM, GBTSH, LIPA, MG, GBHCV, HAVIGM, HBCAB, HBSAG, RPR ####[facility] Jba89362 [place], [place] [phone] Eosinophils/100 WBC Auto (Bld) 3.3 % Normal 0-4 [facility] Comment on above: Performed By: #### C BCDIF, PT, GBCHEM, GBTSH, LIPA, MG, GBHCV, HAVIGM, HBCAB, HBSAG, RPR ####[facility] Fft54157 [place], [place] [phone] Erythrocyte distribution width Auto Ratio (RBC) 14.6 % High 11.5-14.5 [facility] Comment on above: Performed By: #### C BCDIF, PT, GBCHEM, GBTSH, LIPA, MG, GBHCV, HAVIGM, HBCAB, HBSAG, RPR ####[facility] Hms55057 [place], [place] [phone] Hematocrit Auto Volume Fraction (Bld) 46.2 % Normal 41.0-53.0 [facility] Comment on above: Performed By: #### C BCDIF, PT, GBCHEM, GBTSH, LIPA, MG, GBHCV, HAVIGM, HBCAB, HBSAG, RPR ####[facility] [id number] [place], [place] [phone] Hemoglobin mass conc (Bld) 16.2 g/dL Normal 13.5-17.5 [facility] Comment on above: Performed By: #### C BCDIF, PT, GBCHEM, GBTSH, LIPA, MG, GBHCV, HAVIGM, HBCAB, HBSAG, RPR ####[facility] [id number] [place], [place] [phone] Immature Gran 0.30 % Normal 0-1.9 [facility] Comment on above: Performed By: #### C BCDIF, PT, GBCHEM, GBTSH, LIPA, MG, GBHCV, HAVIGM, HBCAB, HBSAG, RPR ####[facility] Ros86289 [place], [place] [phone] Lymphocytes Auto #/vol (Bld) 2.56 10*3/uL Normal 1.0-4.0 [facility] Comment on above: Performed By: #### C BCDIF, PT, GBCHEM, GBTSH, LIPA, MG, GBHCV, HAVIGM, HBCAB, HBSAG, RPR ####[facility] [id number] [facility], [place] [phone] Lymphocytes/100 WBC Auto (Bld) 22.0 % Normal 22-44 [facility] Comment on above: Performed By: #### C BCDIF, PT, GBCHEM, GBTSH, LIPA, MG, GBHCV, HAVIGM, HBCAB, HBSAG, RPR ####[facility] [id number] [facility], [place] [phone] MCH Auto Entitic mass (RBC) 31.6 pG Normal 26-34 [facility] Comment on above: Performed By: #### C BCDIF, PT, GBCHEM, GBTSH, LIPA, MG, GBHCV, HAVIGM, HBCAB, HBSAG, RPR ####[facility] Hpy15271 [facility], [place] [phone] MCHC Auto mass conc (RBC) 35.1 g/dL Normal 31-37 [facility] Comment on above: Performed By: #### C BCDIF, PT, GBCHEM, GBTSH, LIPA, MG, GBHCV, HAVIGM, HBCAB, HBSAG, RPR ####[facility] Zox38367 [place], [place] [phone] MCV Auto Entitic volume (RBC) 90.1 fL Normal 80-100 [facility] Comment on above: Performed By: #### C BCDIF, PT, GBCHEM, GBTSH, LIPA, MG, GBHCV, HAVIGM, HBCAB, HBSAG, RPR ####[facility] Clinical Jmc11205 [facility], [place] [phone] Monocytes/100 WBC Auto (Bld) 10.6 % Normal 4-12 [facility] Comment on above: Performed By: #### C BCDIF, PT, GBCHEM, GBTSH, LIPA, MG, GBHCV, HAVIGM, HBCAB, HBSAG, RPR ####[facility] Clinical Jxt06655 [facility], [place] [phone] Neutrophils/100 WBC Auto (Bld) 63.6 % Normal 40-70 [facility] Comment on above: Performed By: #### C BCDIF, PT, GBCHEM, GBTSH, LIPA, MG, GBHCV, HAVIGM, HBCAB, HBSAG, RPR ####[facility] Ijw85181 [facility], [place] [phone] NRBCs 0 /100 WBC Normal 0-0.9 [facility] Comment on above: Performed By: #### C BCDIF, PT, GBCHEM, GBTSH, LIPA, MG, GBHCV, HAVIGM, HBCAB, HBSAG, RPR ####[facility] [id number] [facility] [place] [phone] Platelets Auto #/vol (Bld) 188 10*3/uL Normal 150-450 [facility] Comment on above: Performed By: #### C BCDIF, PT, GBCHEM, GBTSH, LIPA, MG, GBHCV, HAVIGM, HBCAB, HBSAG, RPR ####[facility] Gqm17784 [facility] [place] [phone] RBC Auto #/vol (Bld) 5.13 10*6/uL Normal 4.50-5.90 [facility] Comment on above: Performed By: #### C BCDIF, PT, GBCHEM, GBTSH, LIPA, MG, GBHCV, HAVIGM, HBCAB, HBSAG, RPR ####[facility] Eit02775 [facility], [place] [phone] WBC Auto #/vol (Bld) 11.63 10*3/uL High 4.5-11.0 [facility] Comment on above: Performed By: #### C BCDIF, PT, GBCHEM, GBTSH, LIPA, MG, GBHCV, HAVIGM, HBCAB, HBSAG, RPR ####[facility] Tjb25365 [place] [address], [place] [phone] [facility] Profdanita 2017 Albumin mass conc 5.0 g/dL Normal 3.5-5.0 [facility] Comment on above: Performed By: #### C BCDIF, PT, GBCHEM, GBTSH, LIPA, MG, GBHCV, HAVIGM, HBCAB, HBSAG, RPR ####[facility] Dzi70084 [place], [place] [phone] Alkaline Phos 137 U/L High 38-125 [facility] Comment on above: Performed By: #### C BCDIF, PT, GBCHEM, GBTSH, LIPA, MG, GBHCV, HAVIGM, HBCAB, HBSAG, RPR ####[facility] Rvv04398 [place], [place] [phone] ALT enzyme act/vol 54 U/L Normal 21-72 [facility] Comment on above: Performed By: #### C BCDIF, PT, GBCHEM, GBTSH, LIPA, MG, GBHCV, HAVIGM, HBCAB, HBSAG, RPR ####[facility] Lxg92548 [place], [place] [phone] Amylase enzyme act/vol 156 U/L High 30-110 [facility] Comment on above: Performed By: #### C BCDIF, PT, GBCHEM, GBTSH, LIPA, MG, GBHCV, HAVIGM, HBCAB, HBSAG, RPR ####[facility] Ycs20352 [place], [place] [phone] Anion gap 3 molar conc 18 mmol/L High 0-15 [facility] Comment on above: Performed By: #### C BCDIF, PT, GBCHEM, GBTSH, LIPA, MG, GBHCV, HAVIGM, HBCAB, HBSAG, RPR ####[facility] Wyo45178 [place], [place] [phone] AST enzyme act/vol 102 U/L High 17-59 [facility] Comment on above: Performed By: #### C BCDIF, PT, GBCHEM, GBTSH, LIPA, MG, GBHCV, HAVIGM, HBCAB, HBSAG, RPR ####[facility] Vuz83190 [facility], [place] [phone] Bilirubin Ql (U) 1.5 mg/dL High 0.2-1.3 [facility] Comment on above: Performed By: #### C BCDIF, PT, GBCHEM, GBTSH, LIPA, MG, GBHCV, HAVIGM, HBCAB, HBSAG, RPR ####[facility] Dnl28042 [facility] [place] [phone] Calcium mass conc 10.0 mg/dL Normal 8.4-10.2 [facility] Comment on above: Performed By: #### C BCDIF, PT, GBCHEM, GBTSH, LIPA, MG, GBHCV, HAVIGM, HBCAB, HBSAG, RPR ####[facility] Vcw64977 [facility], [place] [phone] Chloride molar conc 91 mmol/L Low 98-107 [facility] Comment on above: Performed By: #### C BCDIF, PT, GBCHEM, GBTSH, LIPA, MG, GBHCV, HAVIGM, HBCAB, HBSAG, RPR ####[facility] Dzy39842 [facility] [place] [phone] Cholesterol mass conc 155 mg/dL Normal 100-199 [facility] Comment on above: Performed By: #### C BCDIF, PT, GBCHEM, GBTSH, LIPA, MG, GBHCV, HAVIGM, HBCAB, HBSAG, RPR ####[facility] Avv95302 [address] [facility], [place] [phone] CO2 molar conc 27 mmol/L Normal 22-30 [facility] Comment on above: Performed By: #### C BCDIF, PT, GBCHEM, GBTSH, LIPA, MG, GBHCV, HAVIGM, HBCAB, HBSAG, RPR ####[facility] [id number] [facility], [place] [phone] Creatinine mass conc 1.47 mg/dL High 0.66-1.25 [facility] Comment on above: Performed By: #### C BCDIF, PT, GBCHEM, GBTSH, LIPA, MG, GBHCV, HAVIGM, HBCAB, HBSAG, RPR ####[facility] [id number] [place], [place] [phone] eGFR Amer >60 Normal >60 [facility] Comment on above: Result Comment: MDRD calculation used for eGFR results. Performed By: #### C BCDIF, PT, GBCHEM, GBTSH, LIPA, MG, GBHCV, HAVIGM, HBCAB, HBSAG, RPR ####[facility] [id number] [place], [place] [phone] eGFR non Am 53 mL/min/1.73 2 Low >60 [facility] Comment on above: Performed By: #### C BCDIF, PT, GBCHEM, GBTSH, LIPA, MG, GBHCV, HAVIGM, HBCAB, HBSAG, RPR ####[facility] Asn65711 [place], [place] [phone] Gamma glutamyl transferase [Enzymatic activity/volume] in Serum or Plasma 602 U/L High 15-73 [facility] Comment on above: Performed By: #### C BCDIF, PT, GBCHEM, GBTSH, LIPA, MG, GBHCV, HAVIGM, HBCAB, HBSAG, RPR ####[facility] Vwl06537 [place], [place] [phone] Glucose mass conc 98 mg/dL Normal 74-106 [facility] Comment on above: Performed By: #### C BCDIF, PT, GBCHEM, GBTSH, LIPA, MG, GBHCV, HAVIGM, HBCAB, HBSAG, RPR ####[facility] Aln10806 [place], [place] [phone] LDH 550 U/L Normal 318-618 [facility] Comment on above: Performed By: #### C BCDIF, PT, GBCHEM, GBTSH, LIPA, MG, GBHCV, HAVIGM, HBCAB, HBSAG, RPR ####[facility] Kix79264 [place], [place] [phone] Phosphate mass conc 3.9 mg/dL Normal 2.5-4.5 [facility] Comment on above: Performed By: #### C BCDIF, PT, GBCHEM, GBTSH, LIPA, MG, GBHCV, HAVIGM, HBCAB, HBSAG, RPR ####[facility] Zns17823 [place], [place] [phone] Potassium molar conc 3.7 mmol/L Normal 3.5-5.1 [facility] [place] Comment on above: Performed By: #### C BCDIF, PT, GBCHEM, GBTSH, LIPA, MG, GBHCV, HAVIGM, HBCAB, HBSAG, RPR ####[facility] Czt98389 [place], [place] [phone] Protein mass conc 8.7 g/dL High 6.2-8.2 [facility] Comment on above: Performed By: #### C BCDIF, PT, GBCHEM, GBTSH, LIPA, MG, GBHCV, HAVIGM, HBCAB, HBSAG, RPR ####[facility] Lch33924 [place], [place] [phone] Sodium molar conc 132 mmol/L Low 137-145 [facility] Comment on above: Performed By: #### C BCDIF, PT, GBCHEM, GBTSH, LIPA, MG, GBHCV, HAVIGM, HBCAB, HBSAG, RPR ####[facility] Meh11836 [place], [place] [phone] Triglyceride mass conc 160 mg/dL High 35-150 [facility] Comment on above: Performed By: #### C BCDIF, PT, GBCHEM, GBTSH, LIPA, MG, GBHCV, HAVIGM, HBCAB, HBSAG, RPR ####[facility] Tpn05590 [place], [place] [phone] Urate mass conc 7.2 mg/dL Normal 3.5-8.5 [facility] Comment on above: Performed By: #### C BCDIF, PT, GBCHEM, GBTSH, LIPA, MG, GBHCV, HAVIGM, HBCAB, HBSAG, RPR ####[facility] Vyl00661 [address] [facility], [place] [phone] Urea nitrogen mass conc 15 mg/dL Normal 9-20 [facility] Comment on above: Performed By: #### C BCDIF, PT, GBCHEM, GBTSH, LIPA, MG, GBHCV, HAVIGM, HBCAB, HBSAG, RPR ####[facility] Ehk59202 [address]Ta[facility] Hospitalrdon, [place] [phone] [facility] Hep C Abon 018 [facility] Hep C Ab Nonreactive Normal Nonreactive [facility] [place] Comment on above: Performed By: #### C BCDIF, PT, GBCHEM, GBTSH, LIPA, MG, GBHCV, HAVIGM, HBCAB, HBSAG, RPR ####[facility] Zbn02138 [facility] [place] [phone] [facility] TSHon 04-24-2018 Thyrotropin Qn 3.280 uU/mL Normal 0.465-4.680 [facility] Comment on above: Performed By: #### C BCDIF, PT, GBCHEM, GBTSH, LIPA, MG, GBHCV, HAVIGM, HBCAB, HBSAG, RPR ####[facility] Bsf80311 [address] Hospitalrdon, [place] [phone] Hep A IgM Antibodyon 018 Hep A IgM Antibody Nonreactive Normal Nonreactive [facility] [place] Comment on above: Performed By: #### C BCDIF, PT, GBCHEM, GBTSH, LIPA, MG, GBHCV, HAVIGM, HBCAB, HBSAG, RPR ####[facility] Zyg04062 [address]Ta[facility] Hospitalrdon, [place] [phone] Hep B Core Total Abon 2017 Hep B Core Total Ab Nonreactive Normal Nonreactive [facility] Comment on above: Performed By: #### C BCDIF, PT, GBCHEM, GBTSH, LIPA, MG, GBHCV, HAVIGM, HBCAB, HBSAG, RPR ####[facility] Smq81445 [facility], [place] [phone] Hep B Surf Antigenon 018 Hep B Surf Antigen Nonreactive Normal Nonreactive [facility] [place] Comment on above: Performed By: #### C BCDIF, PT, GBCHEM, GBTSH, LIPA, MG, GBHCV, HAVIGM, HBCAB, HBSAG, RPR ####[facility] Tlb98516 [place], [place] [phone] Lipaseon 04-24-2018 Lipase enzyme act/vol 1540 U/L High 23-300 [facility] Comment on above: Performed By: #### C BCDIF, PT, GBCHEM, GBTSH, LIPA, MG, GBHCV, HAVIGM, HBCAB, HBSAG, RPR ####[facility] Yyq25084 [place], [place] [phone] Magnesiumon 04-24-2018 Magnesium mass conc 2.0 mg/dL Normal 1.3-2.3 [facility] Comment on above: Performed By: #### C BCDIF, PT, GBCHEM, GBTSH, LIPA, MG, GBHCV, HAVIGM, HBCAB, HBSAG, RPR ####[facility] Vlk59268 [place], [place] [phone] Protimeon 04-24-2018 INR Coag RelTime (Bld) 1.0 {INR} Normal 0.6-1.1 [facility] Comment on above: Result Comment: The [...] GBHCV, HAVIGM, HBCAB, HBSAG, RPR ####[facility] Igx58339 [place], [place] [phone] PT Sec 12.3 sec Normal 11.8-14.1 [facility] Comment on above: Performed By: #### C BCDIF, PT, GBCHEM, GBTSH, LIPA, MG, GBHCV, HAVIGM, HBCAB, HBSAG, RPR ####[facility] Khb17615 [place], [place] [phone] Coding Summary.on 10-29-2017 Coding Summary. 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 However, the narrative phrase printed from the coding software may appear abbreviated, or result in slightly different terminology. Coded By: Joyce Barney Date Saved: 10/29/2017 09:43 am Normal [facility] Main OR Intraoperative Recor don 10-25-2017 Main OR Intraoperative Record IntraOp Document Type FT Summary Primary Physician: Nilesh Schulte MD Finalized Date/Time: 10/25/17 11:57:16 Pt. Name: KIRILL ECHOLS/Sex: 1965 Male Med Rec #: [id number] Physician: Nilesh Schulte MD Financial #: [id number] Pt. Type: O Room/Bed: / Admit/Disch: 10/24/17 [...] Performed Scrub - Other Surgeon - Primary Customer Service Assistant - Primary Time In 10/24/17 13:16:00 10/24/17 13:16:00 10/24/17 13:16:00 Time Out 10/24/17 13:32:00 10/24/17 13:32:00 10/24/17 13:32:00 Procedure SIGMOIDOSCOPY(.) SIGMOIDOSCOPY(.) SIGMOIDOSCOPY(.) Comments help in room Last Modified By: Zhao RN, Dana Churchill RN, Dana Suarez RN 10/24/17 13:33:50 10/24/17 13:33:50 10/24/17 13:33:50 Entry 4 Entry 5 Case Attendee Lisset Chambers CST, Karen Role Performed Anesthesiologist Scrub - Primary Food Safety Officer Time In 10/24/17 13:16:00 10/24/17 13:16:00 Time [...] and tissue Entry 1 Skin Integrity Intact, [place], Warm, and Skin Abnormality No Dry Outcomes [...] RN Patient Status Stable Skin. Condition Intact, [place], Warm, and Dry Airway Maintenance Oxygen in Use? No Airway Device N/A Outcomes Met? 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 Yes Verified Last Modified By: Dana Churchill RN 10/24/17 10:56:32 Post-Care Text: The patient received appropriate medication(s) safely administered during the perioperative period For [facility] please see scanned medication reconcilliation form for medications used at the field during the procedure. Case Comments Finalized By: Adilia Bhatia CST Document Signatures Signed By: Dana Churchill RN 10/24/17 13:34 Dana Churchill RN 10/24/17 13:33 Adilia Bhatia CST 10/25/17 11:57 Normal [facility] History and Physicalon 10-24 History and Physical Date: 10/10/2017 2:4 5 PMPatient Name: Kirill Cao #: [id number]: MaleDOB (age): 1965 (52)Provider: Quan Gordon Physician: Mundo Vás[place] [address] (phone) (phone) (fax)Chief Complaint: Dr brown for Abdominal pain and pancreatitisHistory of Present Illness:52 years old -[place] male, was last seen in December 2015 [...] vomiting, weight loss.Printed on 10/19/2017 Kirill Echols, 46063, 1965 Page 1 of 4Printed on 10/19/2017 Kirill Echols, 11392, 1965Genitourinary: Denies dark urine, decrease in urine flow, dysuria, frequent urinary infections, frequent urination,hematuria, impotence, nocturia, urethral discharge or incontinence, sexual difficulty, sexual transmitteddiseases, kidney disease, kidney stones, pain with urination.Respiratory: Denies asthma, cough, dyspnea, excessive sputum, hemoptisis, shortness of breath with exercise,wheezing, coughing up blood.Vital Signs:BP(mmHg)Pulse(ppm) Rhythm Weight (lbs/oz) Height (ft/in) BMI Resp/min Onfb382/79 91 Regular 145 / 6 / 1 [...] insufficiency, we will get old records from [place] to evaluatefor recent computed tomography scan, consider repeating EGD and colonoscopy if still negativeAlcohol abuse, advised to stop alcohol completelyPlan: Flexible Sigmoidoscopy will be performed at [facility].Labs Ordered: CBCLabs Ordered: Chem 6 (BUN, Creatinine, LYTES)Labs Ordered: Hepatic Panel (ALP, T/Dbil, Alb, AST, ALT, TP A/G Ratio)Stool Ordered: Fecal ElastaseObtain all old recordsRisk & Medical Necessity: Diagnosis and management options are Minimal. The amount of data reviewed and/orordered is Minimal/None. The level of risk is Minimal.Printed on 10/19/2017 Kirill Onesimo 19692, 1965 Page 2 of 4Printed on 10/19/2017 Kirill Echols 41272, 1965Nilesh Schulte MD Kirill Onesimo 38984, 1965 Page 3 of 4Printed on 10/19/2017 Kirill Echols 23023, 1965Printed on 10/19/2017 Kirill Echols 02605, 1965 Page 4 of 4Printed on 10/19/2017 Kirill Echols 01824, 1965no change Normal [facility] Comment on above: Result Comment: Elec tronically Signed By: Nilesh Schulte MD\.br\Date and Time Signed: 10/24/17 13:25 EDT Inpatient Patient Summaryon 10-24-2017 Inpatient Patient [facility] Dis[facility] InstructionsPERSON INFORMATION Name: KIRILL ECHOLS PHYSICIANS Admitting Physician: [place] Schulte MD Physician: Nilesh Schulte MD PCP: Lucie ANDREA MD Diagnosis: Internal hemorrhoids Comment: PATIENT EDUCATION INFORMATIONInstructions: Flexible Sigmoidoscopy, Care AfterMedication Leaflets:Follow up:With: Address: When: Nilesh Schulte [facility], [address] [place] [address] Business (1) Comments: Keep scheduled appointment Call for any problems. Call for severe abdominal pain MEDICATION LISTComment: Normal [facility] Main OR PACU I Recordon 10-12 Main OR PACU I Record PACU Phase I Docum ent Type FT Summary Primary Physician: Nilesh Schulte MD Finalized Date/Time: 10/24/17 14:10:53 Pt. Name: KIRILL ECHOLS/Sex: 1965 Male Med Rec #: [id number] Physician: Nilesh Schulte MD Financial #: [id number] Pt. Type: O Room/Bed: / Admit/Disch: 10/24/17 [...] By: Cherry Hopkins RN 10/24/17 14:10 Normal [facility] Main OR Preoperative Recordo n 10-24-2017 Main OR Preoperative Record Holding Area Document Type FT Summary Primary Physician: Nilesh Schulte MD Finalized Date/Time: 10/24/17 12:22:15 Pt. Name: KIRILL ECHOLS/Sex: 1965 Male Med Rec #: [id number] Physician: Nilesh Schulte MD Financial #: [id number] Pt. Type: O Room/Bed: / Admit/Disch: 10/24/17 [...] By: Nikky David RN 10/24/17 12:22 Normal [facility] Patient Education - Texton 0 10-24-2017 [...] had a biopsy.HOME CARE INSTRUCTIONS? Only take cove-pwl-hiypvzu or prescription medicines for pain, fever, or [...] 05/05/2014 Document Reviewed: 05/05/2014ExitCare? Patient Information ?2014 [employer]. This information is not intended to replace advice given to you by your health care provider. Make sure you discuss any questions you have with your health care provider. Normal [facility] Progress Note-Physicianon Progress Note-Physician Patient: [...] be discharged from PACU when criteria met. [facility] Comment on above: Result Comment: Elec [...] No qualifying data available. Condition: Stable. Plan [employer]esthesiologists (ASA) physical status classification: Class II. Anesthetic Preoperative Plan Anesthesia: General. , Monitored anesthesia care. Anesthetic plan, risks, benefits, and alternatives discussed with the patient and/or family. Patient verbalized understanding. Risks, benefits, alternatives discussed. Questions answered. . Normal [facility] Comment on above: Result Comment: Elec tronically Signed By: Cuba Harrington DO\Date and Time Signed: 10/24/17 12:38 EDT Vital Signs Date Time Vital Sign Value Performing Clinician Facility 06-29-2023 10:54-0500 Body temperature 97.9 [degF] MD Rylan Andrea Work Phone: [facility] 06-29-2023 10:54-0500 Body weight 69.85 kg MD Rylan Andrea Work Phone: [facility] 06-29-2023 10:54-0500 Diastolic blood pressure 88 mm[Hg] MD Rylan Andrea Work Phone: [facility] 06-29-2023 10:54-0500 Heart rate 88 /min MD Rylan Andrea Work Phone: [facility] 06-29-2023 10:54-0500 Respiratory rate 20 /min MD Rylan Andrea Work Phone: [facility] 06-29-2023 10:54-0500 SaO2% (BldA) [Mass fraction] 97 % MD Rylan Andrea Work Phone: [facility] 06-29-2023 10:54-0500 Systolic blood pressure 140 mm[Hg] MD Rylan Andrea Work Phone: [facility] 12-25-2022 11:05-0400 Body temperature 97.7 [degF] MD Rylan Andrea Work Phone: [facility] 12-25-2022 11:05-0400 Body weight 66.95 kg MD Rylan Andrea Work Phone: [facility] 12-25-2022 11:05-0400 Diastolic blood pressure 85 mm[Hg] MD Rylan Andrea Work Phone: [facility] 12-25-2022 11:05-0400 Heart rate 94 /min MD Rylan Andrea Work Phone: [facility] 12-25-2022 11:05-0400 Respiratory rate 18 /min MD Rylan Andrea Work Phone: [facility] 12-25-2022 11:05-0400 SaO2% (BldA) [Mass fraction] 97 % MD Rylan Andrea Work Phone: [facility] 12-25-2022 11:05-0400 Systolic blood pressure 136 mm[Hg] MD Rylan Andrea Work Phone: [facility] 11-01-2022 10:41-0400 Body temperature 97.6 [degF] MD Rylan Andrea Work Phone: [facility] 11-01-2022 10:41-0400 Body weight 68.26 kg MD Rylan Andrea Work Phone: [facility] 11-01-2022 10:41-0400 Diastolic blood pressure 82 mm[Hg] MD Rylan Andrea Work Phone: [facility] 11-01-2022 10:41-0400 Heart rate 103 /min MD Rylan Andrea Work Phone: [facility] 11-01-2022 10:41-0400 Respiratory rate 18 /min MD Rylan Andrea Work Phone: [facility] 11-01-2022 10:41-0400 SaO2% (BldA) [Mass fraction] 99 % MD Rylan Andrea Work Phone: [facility] 11-01-2022 10:41-0400 Systolic blood pressure 121 mm[Hg] MD Rylan Andrea Work Phone: [facility] 10-26-2022 12:05-0400 Body height 182.88 cm MD Rylan Andrea Work Phone: [facility] 10-26-2022 12:05-0400 Body temperature 97.6 [degF] MD Rylan Andrea Work Phone: [facility] 10-26-2022 12:05-0400 Body weight 69 kg MD Rylan Andrea Work Phone: [facility] 10-26-2022 12:05-0400 Diastolic blood pressure 77 mm[Hg] MD Rylan Andrea Work Phone: [facility] 10-26-2022 12:05-0400 Heart rate 100 /min MD Rylan Andrea Work Phone: [facility] 10-26-2022 12:05-0400 Respiratory rate 20 /min MD Rylan Andrea Work Phone: [facility] 10-26-2022 12:05-0400 SaO2% (BldA) [Mass fraction] 98 % MD Rylan Andrea Work Phone: [facility] 10-26-2022 12:05-0400 Systolic blood pressure 120 mm[Hg] MD Rylan Andrea Work Phone: [facility] 09-19-2022 09:33-0400 Body weight 70.39 kg MD Rylan Andrea Work Phone: [facility] 09-19-2022 09:33-0400 Diastolic blood pressure 85 mm[Hg] MD Rylan Andrea Work Phone: [facility] 09-19-2022 09:33-0400 Heart rate 85 /min MD Rylan Andrea Work Phone: [facility] 09-19-2022 09:33-0400 Respiratory rate 20 /min MD Rylan Andrea Work Phone: [facility] 09-19-2022 09:33-0400 SaO2% (BldA) [Mass fraction] 97 % MD Rylan Andrea Work Phone: [facility] 09-19-2022 09:33-0400 Systolic blood pressure 128 mm[Hg] MD Rylan Andrea Work Phone: [facility] 09-04-2022 11:26-0400 Body temperature 98.6 [degF] MD Rylan Andrea Work Phone: [facility] 06-22-2022 13:07-0500 Body height 182.88 cm MD Rylan Andrea Work Phone: [facility] 06-22-2022 13:07-0500 Body temperature 98 [degF] MD Rylan Andrea Work Phone: [facility] 06-22-2022 13:07-0500 Body weight 73.2 kg MD Rylan Andrea Work Phone: [facility] 06-22-2022 13:07-0500 Diastolic blood pressure 88 mm[Hg] MD Rylan Andrea Work Phone: [facility] 06-22-2022 13:07-0500 Heart rate 112 /min MD Rylan Andrea Work Phone: [facility] 06-22-2022 13:07-0500 Respiratory rate 20 /min MD Rylan Andrea Work Phone: [facility] 06-22-2022 13:07-0500 SaO2% (BldA) [Mass fraction] 99 % MD Rylan Andrea Work Phone: [facility] 06-22-2022 13:07-0500 Systolic blood pressure 137 mm[Hg] MD Rylan Andrea Work Phone: [facility] 06-17-2022 12:00-0500 Body temperature 98.1 [degF] MD Rylan Andrea Work Phone: [facility] 06-17-2022 12:00-0500 Diastolic blood pressure 91 mm[Hg] MD Rylan Andrea Work Phone: [facility] 06-17-2022 12:00-0500 Heart rate 94 /min MD Rylan Andrea Work Phone: [facility] 06-17-2022 12:00-0500 Respiratory rate 20 /min MD Rylan Andrea Work Phone: [facility] 06-17-2022 12:00-0500 SaO2% (BldA) [Mass fraction] 97 % MD Rylan Andrea Work Phone: [facility] 06-17-2022 12:00-0500 Systolic blood pressure 142 mm[Hg] MD Rylan Andrae Work Phone: [facility] 06-16-2022 09:51-0500 Body height 182.88 cm MD Rylan Andrea Work Phone: [facility] 06-16-2022 09:51-0500 Body mass index (BMI) [Ratio] 20.2 kg/m2 MD Rylan Andrea Work Phone: [facility] 06-16-2022 09:51-0500 Body weight 67.9 kg MD Rylan Andrea Work Phone: [facility] 06-15-2022 12:00-0500 Body height 185.42 cm Rachid Chase Other [employer] Other 06-15-2022 12:00-0500 Body mass index (BMI) [Ratio] 19.63 kg/m2 Rachid Blandban Other [employer] Other 06-15-2022 12:00-0500 Body temperature 97 [degF] Rachid Blandban Other [employer] Other 06-15-2022 12:00-0500 Body weight 67.5 kg Rachid Blandban Other [employer] Other 06-15-2022 12:00-0500 Diastolic blood pressure 82 mm[Hg] Celsoal Edwinaban Other [employer] Other 06-15-2022 12:00-0500 Respiratory rate 20 /min Rachid Blandban Other [employer] Other 06-15-2022 12:00-0500 SaO2% (BldA) [Mass fraction] 98 % Rachid Blandban Other [employer] Other 06-15-2022 12:00-0500 Systolic blood pressure 114 mm[Hg] Kamal Chaban Other [employer] Other 05-31-2022 15:30-0500 Body height 185.42 cm Rachid Chase Other [employer] Other 05-31-2022 15:30-0500 Body mass index (BMI) [Ratio] 19.92 kg/m2 Rachid Blandban Other [employer] Other 05-31-2022 15:30-0500 Body temperature 97.6 [degF] Rachid Blandban Other [employer] Other 05-31-2022 15:30-0500 Body weight 68.49 kg Rachid Chase Other [employer] Other 05-31-2022 15:30-0500 Diastolic blood pressure 80 mm[Hg] Rachid Blandban Other [employer] Other 05-31-2022 15:30-0500 Respiratory rate 20 /min Rachid Blandban Other [employer] Other 05-31-2022 15:30-0500 SaO2% (BldA) [Mass fraction] 98 % Rachid Chase Other [employer] Other 05-31-2022 15:30-0500 Systolic blood pressure 122 mm[Hg] Rachid Blandban Other [employer] Other 04-21-2022 09:50-0500 Diastolic blood pressure 74 mm[Hg] MD Rylan Andrea Work Phone: [facility] 04-21-2022 09:50-0500 Heart rate 80 /min MD Rylan Andrea Work Phone: [facility] 04-21-2022 09:50-0500 Respiratory rate 18 /min MD Rylan Andrea Work Phone: [facility] 04-21-2022 09:50-0500 SaO2% (BldA) [Mass fraction] 99 % MD Rylan Andrea Work Phone: [facility] 04-21-2022 09:50-0500 Systolic blood pressure 111 mm[Hg] MD Rylan Andrea Work Phone: [facility] 04-21-2022 08:21-0500 Body height 182.88 cm MD Rylan Andrea Work Phone: [facility] 04-21-2022 08:21-0500 Body weight 70.3 kg MD Rylan Andrea Work Phone: [facility] 04-18-2022 13:59-0500 Diastolic blood pressure 82 mm[Hg] MD Rylan Andrea Work Phone: [facility] 04-18-2022 13:59-0500 Heart rate 99 /min MD Rylan Andrea Work Phone: [facility] 04-18-2022 13:59-0500 Respiratory rate 20 /min MD Rylan Andrea Work Phone: [facility] 04-18-2022 13:59-0500 SaO2% (BldA) [Mass fraction] 99 % MD Rylan Andrea Work Phone: [facility] 04-18-2022 13:59-0500 Systolic blood pressure 117 mm[Hg] MD Rylan Andrea Work Phone: [facility] 04-18-2022 12:41-0500 Body height 185.42 cm MD Rylan Andrea Work Phone: [facility] 04-18-2022 12:41-0500 Body weight 72.12 kg MD Rylan Andrea Work Phone: [facility] 04-14-2022 11:23-0500 Body temperature 98.3 [degF] MD Rylan Andrea Work Phone: [facility] 04-14-2022 11:23-0500 Body weight 70.3 kg MD Rylan Andrea Work Phone: [facility] 04-14-2022 11:23-0500 Diastolic blood pressure 93 mm[Hg] MD Rylan Andrea Work Phone: [facility] 04-14-2022 11:23-0500 Heart rate 95 /min MD Rylan Andrea Work Phone: [facility] 04-14-2022 11:23-0500 Respiratory rate 20 /min MD Rylan Andrea Work Phone: [facility] 04-14-2022 11:23-0500 SaO2% (BldA) [Mass fraction] 100 % MD Rylan Andrea Work Phone: [facility] 04-14-2022 11:23-0500 Systolic blood pressure 130 mm[Hg] MD Rylan Andrea Work Phone: [facility] 04-11-2022 16:03-0500 Body temperature 97.5 [degF] MD Rylan Andrea Work Phone: [facility] 04-11-2022 16:03-0500 Diastolic blood pressure 88 mm[Hg] MD Rylan Andrea Work Phone: [facility] 04-11-2022 16:03-0500 Heart rate 89 /min MD Rylan Andrea Work Phone: [facility] 04-11-2022 16:03-0500 Respiratory rate 15 /min MD Rylna Andrea Work Phone: [facility] 04-11-2022 16:03-0500 SaO2% (BldA) [Mass fraction] 97 % MD Rylan Andrea Work Phone: [facility] 04-11-2022 16:03-0500 Systolic blood pressure 125 mm[Hg] MD Rylan Andrea Work Phone: [facility] 04-11-2022 05:07-0500 Body weight 67.7 kg MD Rylan Andrea Work Phone: [facility] 04-10-2022 15:56-0500 Body height 182.88 cm MD Rylan Andrea Work Phone: [facility] 04-10-2022 15:56-0500 Body temperature 98.2 [degF] MD Rylan Andrea Work Phone: [facility] 04-10-2022 15:56-0500 Body weight 66.7 kg MD Rylan Andrea Work Phone: [facility] 04-10-2022 15:56-0500 Diastolic blood pressure 99 mm[Hg] MD Rylan Andrea Work Phone: [facility] 04-10-2022 15:56-0500 Heart rate 99 /min MD Rylan Andrea Work Phone: [facility] 04-10-2022 15:56-0500 Respiratory rate 20 /min MD Rylan Andrea Work Phone: [facility] 04-10-2022 15:56-0500 SaO2% (BldA) [Mass fraction] 98 % MD Rylan Andrea Work Phone: [facility] 04-10-2022 15:56-0500 Systolic blood pressure 148 mm[Hg] MD Rylan Andrea Work Phone: [facility] 02-27-2022 14:35-0400 Body height 182.88 cm MD Rylan Andrea Work Phone: [facility] 02-27-2022 14:35-0400 Body temperature 97.7 [degF] MD Rylan Andera Work Phone: [facility] 02-27-2022 14:35-0400 Body weight 70.35 kg MD Rylan Andrea Work Phone: [facility] 02-27-2022 14:35-0400 Diastolic blood pressure 90 mm[Hg] MD Rylan Andrea Work Phone: [facility] 02-27-2022 14:35-0400 Heart rate 80 /min MD Rylan Andrea Work Phone: [facility] 02-27-2022 14:35-0400 Respiratory rate 20 /min MD Rylan Andrea Work Phone: [facility] 02-27-2022 14:35-0400 SaO2% (BldA) [Mass fraction] 99 % MD Rylan Andrea Work Phone: [facility] 02-27-2022 14:35-0400 Systolic blood pressure 138 mm[Hg] MD Rylan Andrea Work Phone: [facility] 09-13-2021 16:00-0400 Body height 185.42 cm Anita Lincoln Other [employer] [facility] [employer] Other 09-13-2021 16:00-0400 Body mass index (BMI) [Ratio] 20.45 kg/m2 Anita Lincoln Other [employer] Other 09-13-2021 16:00-0400 Body temperature 99.4 [degF] Anita Lincoln Other [employer] Other 09-13-2021 16:00-0400 Body weight 70.31 kg Anita Lincoln Other [employer] Other 09-13-2021 16:00-0400 Diastolic blood pressure 82 mm[Hg] Anita Lincoln Other [employer] Other 09-13-2021 16:00-0400 Respiratory rate 18 /min Anita Lincoln Other [facility] [employer] Other 09-13-2021 16:00-0400 SaO2% (BldA) [Mass fraction] 97 % Anita Lincoln Other [facility] [employer] Other 09-13-2021 16:00-0400 Systolic blood pressure 160 mm[Hg] Anita Lincoln Other [facility] [employer] Other 09-08-2021 10:09-0400 Diastolic blood pressure 78 mm[Hg] Rylan Flaherty [employer] Work Phone: [facility] [employer] 250 DO Work Phone: 09-08-2021 10:09-0400 Systolic blood pressure 118 mm[Hg] Rylan Flaherty [employer] Phone: [facility] [employer] 250 DO Work Phone: 09-08-2021 10:05-0400 Body height 182.88 cm Rylan Flaherty [employer] Work Phone: [facility] [employer] 250 DO Work Phone: 09-08-2021 10:05-0400 Body mass index (BMI) [Ratio] 21.16 kg/m2 Rylan Flaherty [employer] Phone: [facility] [employer] 250 DO Work Phone: 09-08-2021 10:05-0400 Body surface area Derived from formula 1.92 m2 Rylan Flaherty [employer] Work Phone: [facility] [employer] 250 DO Work Phone: 09-08-2021 10:05-0400 Body weight 70.76 kg Rylan Flaherty [employer] Phone: [facility] [employer] 250 DO Work Phone: 09-08-2021 10:05-0400 Diastolic blood pressure 76 mm[Hg] Rylan Flaherty Andrea Work Phone: [facility] [employer] 250 DO Work Phone: 09-08-2021 10:05-0400 Heart rate 96 /min Rylan Krystina Andrea Work Phone: [facility] [employer] 250 DO Work Phone: 09-08-2021 10:05-0400 Systolic blood pressure 120 mm[Hg] Rylan Flaherty Andrea Work Phone: [facility] [employer] 250 DO Work Phone: 09-08-2021 10:05-0400 20 1 Rylan Flaherty Andera Work Phone: [facility] [employer] 250 DO Work Phone: Comment on above: PHQ-9 TS Encounters Encounter Date Encounter Type Care Provider Facility Start: 12-03-2023 End: 12-03-2023 ambulatory MARILU WARCHOL Not Available Start: 11-12-2023 End: 11-12-2023 ambulatory MARILU WARCHOL Not Available Start: 10-31-2023 End: 10-31-2023 ambulatory FLORINDA MONK Not Available Start: 10-17-2023 ambulatory Varghese Duval Facility :[facility] Start: 10-04-2023 End: 10-04-2023 ambulatory MARILU WARCHOL Not Available Start: 09-19-2023 End: 09-19-2023 ambulatory MARILU WARCHOL Not Available Start: 09-11-2023 ambulatory RYLAN ANDREA [facility] Start: 09-11-2023 End: 09-11-2023 ambulatory MARILU WARCHOL Not Available Start: 08-16-2023 End: 08-16-2023 ambulatory RYLAN ANDREA Not Available Start: 06-29-2023 End: 06-29-2023 ambulatory MD Rylan Andrea Work Phone: [facility] Work Phone: Start: 06-29-2023 End: 06-29-2023 Patient encounter procedure MD Rylan Andrea Work Phone: [facility] Work Phone: Start: 06-29-2023 Registered Recurring MD Rylan Andrea Work Phone: [facility] Acute Work Phone: Start: 06-25-2023 External Result Encounter Estela Rosales Kojo DO Work Phone: [facility] Unsolicited Start: 06-25-2023 External Result Encounter Estela Valladareslauren DO Work Phone: [facility] External [facility] Unsolicited Start: 04-12-2023 End: 04-12-2023 ambulatory MARILU KAILEY Not Available Start: 12-25-2022 End: 12-25-2022 ambulatory MD Rylan Andrea Work Phone: [facility] Work Phone: Start: 12-25-2022 End: 12-25-2022 Registered Recurring MD Rylan Andrea Work Phone: [facility] Work Phone: Start: 11-01-2022 End: 11-01-2022 ambulatory MD Rylan Andrea Work Phone: [facility] Work Phone: Start: 11-01-2022 End: 11-01-2022 Registered Recurring MD Rylan Andrea Work Phone: [facility] Work Phone: Start: 10-26-2022 End: 10-26-2022 Emergency department patient visit MD Rylan Andrea Work Phone: [facility]Emergency [facility] Work Phone: Start: 10-26-2022 Registered Recurring MD Rylan Andrea Work Phone: [facility] Work Phone: Start: 10-18-2022 End: 10-18-2022 ambulatory MD Rylan Andrea Work Phone: [facility] Work Phone: Start: 10-18-2022 End: 10-18-2022 Patient encounter procedure MD Rylan Andrea Work Phone: [facility]XRay [facility] [place] Work Phone: Start: 10-10-2022 End: 10-10-[address] RYLAN ANDREA Facility:[facility] Start: 10-03-2022 End: 10-03-[address] RYLAN ANDREA Facility:[facility] Start: 09-19-2022 End: 09-19-2022 ambulatory MD Rylan Andrea Work Phone: [facility] Work Phone: Start: 09-19-2022 End: 09-19-2022 Registered Recurring MD Rylan Andrea Work Phone: [facility] Work Phone: Start: 09-19-2022 Registered Recurring MD Rylan Andrea Work Phone: [facility] Work Phone: Start: 09-11-2022 End: 09-11-[address] RYLAN ANDREA Facility:[facility] Start: 09-08-2022 End: 09-08-[address] RYLAN ANDREA Facility:[facility] Start: 09-04-2022 End: 09-04-[address] RYLAN ANDREA Facility:[facility] Start: 09-01-2022 End: 09-02-[address] RYLAN ANDREA Facility:[facility] Start: 08-27-2022 End: 08-27-[address] MELANI IBRAHIM Facility:[facility] Start: 06-22-2022 End: 06-22-2022 ambulatory MD Rylan Andrea Work Phone: [facility] Work Phone: Start: 06-22-2022 End: 06-22-2022 Registered Recurring MD Rylan Andrea Work Phone: [facility] Work Phone: Start: 06-18-2022 End: 06-18-[address] JESSE RAMOS Facility:[facility] Start: 06-16-2022 End: 06-17-2022 Admission to same day surgery center MD Rylan Andrea Work Phone: [facility] [place] Start: 06-15-2022 Office outpatient vi sit 25 minutes Kamal Chaban [facility] Start: 06-15-2022 End: 06-15-2022 ambulatory MD Rylan Andrea Work Phone: [facility] Work Phone: Start: 06-15-2022 End: 06-15-2022 Patient encounter procedure MD Rylan Andrea Work Phone: [facility]-Pre-Surgical Testing Work Phone: Start: 06-01-2022 End: 06-01-2022 ambulatory MD Rylan Andrea Work Phone: [facility] Work Phone: Start: 06-01-2022 End: 06-01-2022 Patient encounter procedure MD Rylan Andrea Work Phone: [facility]-CT Scan [facility] [place] Work Phone: Start: 05-31-2022 End: 05-31-2022 ambulatory Kamal Rena Other [employer] Other Start: 05-31-2022 Office outpatient ne w 45 minutes Kamal Chaban [facility] Start: 04-21-2022 End: 04-21-2022 Admission to same day surgery center MD Rylan Andrea Work Phone: [facility]Ultrasound [facility] [place] Start: 04-21-2022 End: 04-21-2022 ambulatory MD Rylan Andrea Work Phone: [facility] Work Phone: Start: 04-18-2022 End: 04-18-2022 Admission to same day surgery center MD Rylan Andrea Work Phone: [facility] [place] Start: 04-18-2022 End: 04-18-2022 ambulatory MD Rylan Andrea Work Phone: [facility] Work Phone: Start: 04-14-2022 End: 04-14-2022 ambulatory MD Rylan Andrea Work Phone: [facility] Work Phone: Start: 04-14-2022 End: 04-14-2022 Registered Recurring MD Rylan Andrea Work Phone: [facility] Start: 04-14-2022 Registered Recurring MD Rylan Andrea Work Phone: [facility] Start: 04-10-2022 End: 04-11-2022 Evaluation and management of inpatient MD Rylan Andrea Work Phone: [facility] Start: 04-10-2022 observation encounter MD Rylan Andrea Work Phone: [facility] Work Phone: Start: 04-10-2022 Registered Recurring MD Rylan Andrea Work Phone: [facility] Start: 02-27-2022 End: 02-27-2022 ambulatory MD Rylan Andrea Work Phone: [facility] Work Phone: Start: 02-27-2022 End: 02-27-2022 Registered Recurring MD Rylan Andrea Work Phone: [facility] Start: 11-29-2021 ambulatory Rylan Ortiz ity: Start: 11-23-2021 End: 11-24-[address] MARCE PAGAN Facility:[facility]1 Start: 09-13-2021 Chart Update Rylan A Andrea Work Phone: [facility]-Paige 250 DO Work Phone: Start: 09-13-2021 End: 09-13-2021 ambulatory Anita Lincoln Other [facility] [employer] Other Start: 09-13-2021 Office outpatient vi sit 25 minutes Anita Lincoln [facility] Palliative Care Start: 09-09-2021 ambulatory Rylan Andrea Facil [id number] Start: [facility] Lukas Olive[facility], Status: Pen, Time: 1:00 PM Rylan Andrea Work Phone: [facility] 250 DO Work Phone: Start: 09-08-2021 Office consultation new/estab patient 80 min Rylan Andrea Work Phone: [facility] 250 DO Work Phone: Start: 09-08-2021 ambulatory Estela Varma Facility: Start: 08-06-2020 End: 08-07-2020 Patient encounter procedure [facility] Start: 04-24-2018 End: 05-14-2018 Patient encounter procedure CUBA Flaherty [facility] Start: 10-24-2017 End: 10-25-2017 Ambulatory [facility] Facility:[facility] Procedures Date Procedure Procedure Detail Performing Clinician Start: 06-25-2023 Carcinoembryonic antigen cea Estela Varma DO Work Phone: Comment on above: Serial tumor marker results determined by assays using different manufacturers or methods may not be comparable. [facility] Laboratory tail edger and method: VALENTINE UNICEL DXI, 2 SITE IMMUNOENZYMATIC SANDWICH ASSAY. Start: 06-25-2023 Positron emission to mography with computed tomography MD Rylan Andrea Work Phone: Start: 06-25-2023 Carcinoembryonic antigen cea Estela Varma DO Work Phone: Comment on above: Result Comment: Seri al tumor marker results determined by assays using different manufacturers or methods may not be comparable. [facility] tail edger and method: VALENTINE UNICEL DXI, 2 SITE IMMUNOENZYMATIC ?SANDWICH? ASSAY. PERFORMED BY: [place] [address] [place] [address] PATHOLOGIST CHEF BROILER OR FRY CATY DELCID M.D. Performed By: #### C BC, MARILU, LIPASE, FE and TIBC, CEA, T4F, TSH3, YUSUF, [id number], CMP ####[address]#### METH ####[facility] , Start: 06-25-2023 Complete blood count with white cell differential, automated Estela Varma DO Work Phone: Start: 06-25-2023 GLUCOSE POCT GLUCOMETERS Estela Connie Varma DO Work Phone: Start: 03-30-2023 Carcinoembryonic antigen cea Varghese Duval Comment on above: Result Comment: PERF ORMED BY: [facility] [address] [place] [address] PATHOLOGIST CHEF BROILER OR FRY CATY DELCID M.D. Performed By: #### C EA, CBC, FOL, B12, CMP, FE and TIBC, LIPASE, MARILU, T4F ####[address]#### METH ####[facility] , Start: 12-22-2022 Positron [...] Screening for malign ant neoplasm of colon [facility] Start: 11-11-2023 Influenza vaccination Influenza Vacc ine (#1) [facility] Comment on above: Postponed from 01/12 (Patient Refused) Start: 07-10-2023 End: 07-10-2023 Patient encounter procedure 07/10/2023 1:40 PM EST Office Visit [facility] [address] [place] [address] Rylan Andrea MD [address] [place] [address] [facility] Start: 06-25-2023 [facility] Start: 12-11-2022 [facility] Start: 10-26-2022 Erythropoietin (EPO) [Units/volume] in Serum or Plasma [facility] Start: 06-17-2022 [facility] Start: 06-16-2022 Referral to clinical program eligibility specialist [facility] Start: 04-21-2022 [facility] Start: 04-21-2022 Ultrasonic guidance for thoracentesis [facility] Start: 04-18-2022 [facility] Start: 04-18-2022 Ultrasonic guidance for thoracentesis [facility] Start: 04-14-2022 [facility] Start: 04-11-2022 [facility] Start: 04-11-2022 Troponin I.cardiac [Mass/volume] in Serum or Plasma by High sensitivity method [facility] Start: 04-10-2022 Referral to oncologist [facility] Start: 04-10-2022 Hospital admission [facility] Start: 04-10-2022 [facility] Start: 02-27-2022 [facility] Start: 11-29-2021 [facility], Provider: Lukas Oliveira, Status: Pen, Time: 11:10 AM [facility], Provider: Lukas Oliveira, Status: Pen, Time: 11:10 AM [facility] 250 DO Work Phone: Start: 09-05-2021 [facility] Start: 08-22-2021 [facility] Start: 04-05-2021 [facility] Start: 02-01-2021 [facility] Start: 08-16-2020 [facility] Start: 08-05-2020 [facility] Start: 07-26-2020 [facility] Start: 07-06-2020 [facility] Start: 06-29-2020 [facility] Start: 06-14-2020 [facility] Start: 05-24-2020 [facility] Start: 05-03-2020 [facility] Start: 04-12-2020 [facility] Start: 04-12-2020 [facility] Start: 03-08-2020 [facility] Start: 02-24-2020 [facility] Start: 02-18-2020 [facility] Start: 02-16-2020 End: 02-16-2020 [facility] Start: 02-16-2020 [facility] Start: 02-10-2020 [facility] Start: 02-04-2020 End: 02-04-2020 [facility] Start: 01-28-2020 [facility] Start: 01-26-2020 [facility] Start: 01-26-2020 [facility] Start: 01-21-2020 [facility] Start: 01-21-2020 End: 01-21-2020 [facility] Start: 01-06-2020 [facility] Start: 01-05-2020 [facility] Start: 12-15-2019 [facility] Start: 11-24-2019 [facility] Start: 1965 Screening for malign ant neoplasm of colon [facility] Amylase [Enzymatic activity/volume] in Serum or Plasma Amylase Lab Routine 06/25/2023 7:57 AM EST [facility] Bacteria identified in Blood by Culture [facility] Blood culture for bacteria, including anaerobic screen Blood Culture [facility] Carcinoembryonic Ag [Mass/volume] in Serum or Plasma [facility] Comprehensive metabo lic 1999 panel - Serum or Plasma [facility] Comprehensive metabo lic 1999 panel - Serum or Plasma [facility] Comprehensive metabo lic 1999 panel - Serum or Plasma [facility] Comprehensive metabo lic 1999 panel - Serum or Plasma [facility] Comprehensive metabo lic 1999 panel - Serum or Plasma Comprehensive metabolic panel Lab Routine 06/25/2023 7:57 AM EST [facility] Work Phone: Comprehensive metabo lic 1999 panel - Serum or Plasma [facility] CT Abdomen and Pelvi s W contrast IV [facility] CT Abdomen and Pelvi s W contrast IV [facility] CT Abdomen and Pelvi s W contrast IV [facility] CT Chest W contrast IV [facility] CT Chest W contrast IV [facility] CT Chest W contrast IV [facility] Erythrocyte sediment ation rate by Photometric method [facility] Erythropoietin (EPO) [Units/volume] in Serum or Plasma [facility] Iron and Iron bindin g capacity panel - Serum or Plasma Iron and TIBC Lab Routine 06/25/2023 7:57 AM EST [facility] Lipase [Enzymatic activity/volume] in Serum or Plasma Lipase Lab Routine 06/25/2023 7:57 AM EST [facility] Methylmalonate [Moles/volume] in Serum or Plasma [facility] Patient Education [facility] Work Phone: Patient referral [facility] Work Phone: Thyrotropin [Units/v olume] in Serum or Plasma [facility] Ultrasonic guidance for thoracentesis [facility] Ultrasonic guidance for thoracentesis [facility] Immunizations Immunization Date Immunization Notes Care Provider Fa cilileonardo 09-01-2020 Pfizer-BioNTech COVID-19 Vacc 30 MCG/0.3ML Intramuscular Suspension Rylan A Andrea Work Phone: [facility] 07-30-2020 Pfizer-BioNTech COVID-19 Vacc 30 MCG/0.3ML Intramuscular Suspension Rylan A Andrea Work Phone: [facility] 03-24-2020 influenza, injectabl e, quadrivalent, preservative free Rylan A Andrea Work Phone: [facility] 03-24-2020 influenza virus vaccine, unspecified formulation Estela Valladarestiagoroxann DO Work Phone: [facility] 03-15-2020 influenza, injectabl e, quadrivalent, preservative free Rylan A Andrea Work Phone: [facility] Healthcare Payers Date Payer Category Payer Self-pay [id number] 2023 Private Health Insurance [id number] 2021 Medicaid [id number] 2021 Medicare MEDICARE MEDICAR E RAILROAD [id number] 2021-Present [address] MEDICARE [address] [address] [place] [address] Medicare [id number] 2017 Private Health Insurance 1965 Unknown [id number] 2.16.840.1.856877.3.579.2. 173 1965 Unknown [id number] 2.16.840.1.555543.3.579.2. 356 1965 Unknown [id number] 2.16.840.1.971141.3.579.2. 356 1965 Unknown [id number] 2.16.840.1.681461.3.579.2. 356 1965 Unknown [id number] 2.16.840.1.877264.3.579.2. 593 1965 Unknown [id number] 2.16.840.1.268752.3.579.2. 593 1965 Unknown [id number] 2.16.840.1.699293.3.579.2. 593 1965 Unknown [id number] 2.16.840.1.997810.3.579.2. 593 1965 Unknown [id number] 2.16.840.1.107910.3.579.2. 593 1965 Unknown [id number] 2.16.840.1.179130.3.579.2. 593 1965 Unknown [id number] 2.16.840.1.314920.3.579.2. 593 1965 Unknown [id number] 2.16.840.1.850576.3.579.2. 593 1965 Unknown [id number] 2.16.840.1.520105.3.579.2. 593 1965 Unknown [id number] 2.16.840.1.051265.3.579.2. 1286 1965 Unknown [id number] 2.16.840.1.901015.3.579.2. 1286 1965 Unknown [id number] 2.16.840.1.127574.3.579.2. 1286 1965 Unknown [id number] 2.16.840.1.641686.3.579.2. 1286 1965 Unknown [id number] 2.16.840.1.438838.3.579.2. 1286 1965 Unknown [id number] 2.16.840.1.414626.3.579.2. 1259 1965 Unknown [id number] 2.16.840.1.143232.3.579.2. 9 1965 Unknown [id number] 2.16.840.1.116770.3.579.2. 1259 1965 Unknown [id number] 2.16.840.1.737960.3.579.2. 9 1965 Unknown [id number] 2.16.840.1.370484.3.579.2. 1259 1965 Unknown [id number] 2.16.840.1.896349.3.579.2. 9 1965 Unknown [id number] 2.16840.1.908165.3.579.2. 1259 1965 Unknown [id number] 2.16.840.1.525356.3.579.2. 1259 1959 Medicaid [id number] 1959 Medicare [id number] 1959 Private Health Insurance [id number] Private Health Insurance [facility] [employer] [id number] Unknown Unknown [id number] 2.16840.1.404309.19 Unknown [id number] 2.16840.1.319285.3.579.2. 531 Social History Date Type Detail Facility Start: 04-12-2023 End: 04-13-2023 Occasional alcohol use Occasional alcohol use [facility] Comment on above: beer; medical marijuana ed ibles; quit 2020 1ppd; Start: 04-11-2023 End: 04-12-2023 Sex Assigned At [facility] Start: 02-27-2022 End: 09-04-2022 Tobacco smoking status NHIS Ex-smoker (finding) [facility] Start: 1965 Sex Assigned At Male F [facility] Start: 10-26-2022 End: 12-25-2022 Tobacco smoking status NHIS Never smoked tobacco (finding) [facility] Start: 04-12-2023 Tobacco smoking status NHIS Occasional [...] Abdominal hernia surgical mesh, synthetic polymer, non-bioabsorbable ()[id number] FDA Start: 05-10-2020 Insertion of central venous catheter (CVC) with subcutaneous port for chemotherapy Vascular port/catheter ()[id number] FDA Start: 11-26-2019 Goals Date Patient Goal Desired Activity /State Functional Status Date Assessment Result Facility 06-17-2022 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 [facility] Work Phone: 04-11-2022 Functional status Patient at Baseline [facility] Work Phone: 04-10-2022 Functional status Patient at Baseline [facility] Work Phone: 09-08-2021 PHQ-9 [id number] Severe (20-27) -[facility] DO Work Phone: Mental Status Date Assessment Result Facility 06-17-2022 Cognitive function Cognitive Sta tus Patient at Baseline [facility] Work Phone: 04-11-2022 Cognitive function Cognitive Sta tus Patient at Baseline [facility] Work Phone: 04-10-2022 Cognitive function Cognitive Sta tus Patient at Baseline [facility] Work Phone: Clinical Notes 11-18-2019 to 11-07-2022 Note Date & Type Note Facility 11-07-2022 Progress note Note Date/Time November 01, 2022 11:06[facility] at [address] [address] Hem/Onc Follow Up Note - OP Signed with Addenda Patient: Kirill Echols MR#: [id number] : 1965 Acct:[id number] Age/Sex: 57 / M Type: REG RCR [...] nothing really new going on. HPI: 54-year-old -Austrian gentleman history of smoking 40 pack years [...] overwhelming for recurrence. He lives alone in [place]. His children live in [place]. His left him 8 months ago and [...] and urinary tract. Otherwise, there is an Rbpwgg-d-Vtzd on the left. The lungs demonstrate emphysematous [...] add on appointment after ER visit at [facility] on August 29, 2022 [...] for coordination of care (as documented) and qfqx-qm-xqqx counseling of patient and/or family. [facility] - Medical History Medical History: Medical History [...] 03/01/22 15:44 KB (Rec: 03/01/22 15:45 KB [id number]) Distress Screening Distress score of 4 or [...] % (Auto) 69.5, Lymph % (Auto) 15.0, [place] % (Auto) 12.1, Eos % (Auto) 2.6, Baso % (Auto) 0.8, Nucleat RBC Rel Count 0.2, Neut # (Auto) 4.1, Lymph # (Auto) 0.9 L, [place] # (Auto) 0.7, Eos # (Auto) 0.1, [...] <Electronically signed by ERINN Shane> 11/07/22 1149 [facility] Work Phone: 1([phone]) 732-869805-23-2023 Hospital Discharge instructionsAmbulatory Orders* Initiate Home Health Time Frame: 1 Day, Location: Determined By Patient * Oncology Histology Time Frame: 10/03/22, Location: Determined By Patient * Oncology Histology Time Frame: 10/17/22, Location: Determined By Patient * Oncology Histology Time Frame: 10/10/22, Location: Determined By Patient [facility] Work Phone: 1([phone]) 226-241705-09-2023 Progress note Author Estela Varma [facility] September 19, 2022 10:02am Note Date/Time September 19, 2022 9:50am [place] [address] Hem/Onc Follow Up Note - OP Signed Patient: Kirill Echols MR#: [id number] : 1965 Acct:[id number] Age/Sex: 57 / M Type: REG RCR [...] Weight loss Follow Up Instructions: f/u wth [employer] in 6 weeks, cbc, cmp b12, folate, [...] concerns voiced at this time. HPI: 54-year-old -Austrian gentleman history of smoking 40 pack years [...] overwhelming for recurrence. He lives alone in [place]. His children live in [place]. His left him 8 months ago and [...] and urinary tract. Otherwise, there is an Zmklgu-x-Azlz on the left. The lungs demonstrate emphysematous [...] from the R chest. cytology negative. 06/22/2022: [facility] is here for interval follow up; surveillance [...] add on appointment after ER visit at [facility] on August 29, 2022 [...] for coordination of care (as documented) and yjxr-nk-hcgg counseling of patient and/or family. [facility] - Medical History Medical History: Medical History [...] 03/01/22 15:44 KB (Rec: 03/01/22 15:45 KB [id number]) Distress Screening Distress score of 4 or [...] by Estela Varma II, DO> 09/19/22 1002 [facility] Work Phone: 1([phone]) 649-994004-24-2023 Progress note Author Dixie Olivia [facility] September 04, 2022 12:17pm Note Date/Time September 04, 2022 12: 04pm [facility] [place] [id number] Hem/Onc Follow Up Note - OP Signed Patient: Kirill Echols MR#: [id number] : 1965 Acct:[id number] Age/Sex: 57 / M Type: REG RCR Copies to: MD Rylan Vega MD~ Subjective Date/Time of Service: Date of Service: 09/04/2022 Time of Service: 11:56 Chief Complaint: Patient is here today for a follow up visit for small cell lung cancer. He went to [place] ER for chest pressure 08-27-[address] scan for review HPI: 54-year-old -Austrian gentleman history of smoking 40 pack years [...] overwhelming for recurrence. He lives alone in [place]. His children live in [place]. His left him 8 months ago and [...] and urinary tract. Otherwise, there is an Isgvlv-x-Frzk on the left. The lungs demonstrate emphysematous [...] He is considering moving back down to [facility] where he is from. 02/27/22 he [...] add on appointment after ER visit at [facility] on August 29, 2022 [...] Narrative: Residual and chronic left-sided chest complaints. [facility] - Medical History Medical History: Medical History [...] 03/01/22 15:44 KB (Rec: 03/01/22 15:45 KB [id number]) Distress Screening Distress score of 4 or [...] add on appointment after ER visit at [facility] on August 29, 2022 [...] to home health care nurse at [facility]. 3.) Follow up with Dr. Varma to [...] for coordination of care (as documented) and ffyc-mt-irhm counseling of patient and/or family. Dictated By: Dixie Olivia APRN DD/ 1156 Signed By: <Electronically signed by ERINN Olivia> 09/04/22 1217 [facility] Work Phone: 1(665) 218-340602-09-2023 Progress note Author Dixie Olivia [facility] June 22, 2022 2:24pm Note Date/Time June 22, 2022 2 :16pm [facility] [place] [address] Hem/Onc Follow Up Note - OP Signed Patient: Kirill Echols MR#: [id number] : 1965 Acct:[id number] Age/Sex: 57 / M Type: REG RCR Copies to: MD Rylan Vega MD~ Subjective Date/Time of Service: Date of Service: 06/22/2022 Time of Service: 14:09 Chief Complaint: Patient is here for a 2 month follow up with, had chest tube placed 06/16/2022. No concerns voiced at this time. HPI: 54-year-old -Austrian gentleman history of smoking 40 pack years [...] overwhelming for recurrence. He lives alone in [place]. His children live in [place]. His left him 8 months ago and [...] and urinary tract. Otherwise, there is an Nzkovc-b-Dzqc on the left. The lungs demonstrate emphysematous [...] He is considering moving back down to [facility] where he is from. 02/27/22 he [...] diaphoresis. No orthostasis or dizziness or palpitations. [facility] - Medical History Medical History: Medical History [...] 03/01/22 15:44 KB (Rec: 03/01/22 15:45 KB [id number]) Distress Screening Distress score of 4 or [...] for coordination of care (as documented) and uoml-te-ozve counseling of patient and/or family. Dictated By: Dixie Olivia APRN DD/ 1409 Signed By: <Electronically signed by ERINN Olivia> 06/22/22 1424 [facility] Work Phone: 1([phone]) 961-475102-02-2023 Evaluation note* Encounter Date Diagnosis Assessment Notes [...] cell carcinoma of lung (ICD-10 - C34.90) [employer] Other 01-18-2023 Evaluation note* Encounter Date Diagnosis Assessment Notes Treatment Notes Treatment Clinical Notes May, Small cell carcinoma of lung (ICD-10 - C34.90) Please let me know lung CT scan to review schedule thoracentesis if needed May, Chronic obstructive pulmonary disease, unspecified COPD type (ICD-10 - J44.9) May, Shortness of breath (ICD-10 - R06.02) May, Pleural effusion (ICD-10 - J90) [employer] Other 12-02-2022 Progress note Author Estela Varma [facility] April 14, 2022 12:02pm Note Date/Time April 14, 2022 1 1:50am [facility] [place] [address] Hem/Onc Follow Up Note - OP Signed Patient: Kirill Echols MR#: [id number] : 1965 Acct:[id number] Age/Sex: 56 / M Type: REG RCR [...] concerns voiced at this time. HPI: 54-year-old -Austrian gentleman history of smoking 40 pack years [...] overwhelming for recurrence. He lives alone in [place]. His children live in [place]. His left him 8 months ago and [...] and urinary tract. Otherwise, there is an Xgiiyg-p-Cgym on the left. The lungs demonstrate emphysematous [...] He is considering moving back down to [facility] where he is from. 02/27/22 he [...] for coordination of care (as documented) and qtkj-ig-ijas counseling of patient and/or family. [facility] - Medical History Medical History: Medical History [...] 03/01/22 15:44 KB (Rec: 03/01/22 15:45 KB [id number]) Distress Screening Distress score of 4 or [...] % (Auto) 71.4, Lymph % (Auto) 16.2, [place] % (Auto) 8.6, Eos % (Auto) 2.9, Baso % (Auto) 0.9, Neut # (Auto) 4.5, Lymph # (Auto) 1.0, [place] # (Auto) 0.5, Eos# (Auto) 0.2, Baso [...] by Estela Varma II, DO> 04/14/22 1202 [facility] Work Phone: [phone]) 748-950610-17-2022 Progress note Author Estela Varma [facility] February 27, 2022 2:56pm Note Date/Time February 27, 2022 2 :51pm [facility] [place] [address] Hem/Onc Follow Up Note - OP Signed Patient: Kirill Echols MR#: [id number] : 1965 Acct:[id number] Age/Sex: 56 / M Type: REG RCR [...] for review. No concerns voiced. HPI: 54-year-old -Austrian gentleman history of smoking 40 pack years [...] overwhelming for recurrence. He lives alone in [place]. His children live in [place]. His left him 8 months ago and [...] and urinary tract. Otherwise, there is an Vdqlfr-n-Bbji on the left. The lungs demonstrate emphysematous [...] He is considering moving back down to [facility] where he is from. 02/27/22 he [...] for coordination of care (as documented) and tqxh-zh-qkpn counseling of patient and/or family. [facility] - Medical History Medical History: Medical History [...] 09/14/21 14:56 KB (Rec: 09/14/21 14:59 KB [id number]) Distress Screening Distress score of 4 or more discussed Yes with patient? Distress screening follow up: Spoke with patient via phone. Patient is doing ok at this time. Recently had a heart cath which was negative. He is happpy that his scans are good. Dr. Perez is working on getting him into [facility]. - Lab Results Diagram of Most Recent [...] by Estela Varma II, DO> 02/27/22 1456 [facility] Work Phone: [phone]) [phone] Evaluation note* Encounter Date Diagnosis Assessment Notes [...] Dr. Andrea to discuss plan of care. [employer] Other 04-25-2022 Progress note Author Estela Varma [facility] September 05, 2021 6:32pm Note Date/Time September 05, 2021 12: 28pm [facility] at [address] [address] Hem/Onc Follow Up Note - OP Signed Patient: Kirill Echols MR#: [id number] : 1965 Acct:[id number] Age/Sex: 56 / M Type: REG RCR [...] concerns voiced at this time. HPI: 54-year-old -Austrian gentleman history of smoking 40 pack years [...] overwhelming for recurrence. He lives alone in [place]. His children live in [place]. His left him 8 months ago and [...] and urinary tract. Otherwise, there is an Wbvxbs-a-Sktg on the left. The lungs demonstrate emphysematous [...] He is considering moving back down to [facility] where he is from. - Physical [...] for coordination of care (as documented) and vlyx-ni-iqub counseling of patient and/or family. [facility] - Medical History Medical History: Medical History [...] 02/02/21 13:22 KB (Rec: 02/02/21 13:23 KB [id number]) Distress Screening Distress score of 4 or [...] % (Auto) 69.0, Lymph % (Auto) 18.2, [place] % (Auto) 7.9, Eos % (Auto) 4.2, Baso % (Auto) 0.7, Neut # (Auto) 3.5, Lymph # (Auto) 0.9 L, [place] # (Auto) 0.4, Eos # (Auto) 0.2, [...] by Estela Varma II, DO> 09/05/21 1832 [facility] Work Phone: [phone] 565-227604-11-2022 Progress note Author Estela Varma [facility] August 22, 2021 3:19pm Note Date/Time August 22, 2021 2:5 3pm [facility] [place] [address] Hem/Onc Follow Up Note - OP Signed Patient: Kirill Echols MR#: [id number] : 1965 Acct:[id number] Age/Sex: 56 / M Type: REG RCR [...] been having shortness of breath HPI: 54-year-old -Austrian gentleman history of smoking 40 pack years [...] overwhelming for recurrence. He lives alone in [place]. His children live in [place]. His left him 8 months ago and [...] for coordination of care (as documented) and kuto-wo-jebx counseling of patient and/or family. [facility] - Medical History Medical History: Medical History [...] 02/02/21 13:22 KB (Rec: 02/02/21 13:23 KB [id number]) Distress Screening Distress score of 4 or [...] % (Auto) 62.5, Lymph % (Auto) 20.1, [place] % (Auto) 11.9, Eos % (Auto) 4.8, Baso % (Auto) 0.7, Neut # (Auto) 3.0, Lymph # (Auto) 1.0, [place] # (Auto) 0.6, Eos # (Auto) 0.2, [...] signed by Estela Varma II, DO> 08/22/21 0257 [facility] Work Phone: [phone]) 780-706011-23-2021 Progress note Author George Ash [facility] April 05, 2021 12:34pm Note Date/Time April 05, 2021 12:28pm [facility] [place] [address] Hem/Onc Follow Up Note - OP Signed Patient: Kirill Echols MR#: [id number] : 1965 Acct:[id number] Age/Sex: 55 / M Type: REG RCR [...] has seen cardiology and was evaluated in [place] including a stress test. Nothing ever came [...] diaphoresis. No orthostasis or dizziness or palpitations. [facility] - Medical History Medical History: Medical History [...] 02/02/21 13:22 KB (Rec: 02/02/21 13:23 KB [id number]) Distress Screening Distress score of 4 or [...] % (Auto) 74.7, Lymph % (Auto) 11.7, [place] % (Auto) 10.3, Eos % (Auto) 2.5, Baso % (Auto) 0.8, Neut # (Auto) 6.1, Lymph # (Auto) 1.0, [place] # (Auto) 0.9H, Eos # (Auto) 0.2, [...] had extensive work-up in the past in [place] including stress test. He has seen cardiology. [...] for coordination of care (as documented) and gfvt-ve-ucwr counseling of patient and/or family. Dictated By: George Ash MD DD/ 1227 Signed By: <Electronically signed by MD George Ash> 04/05/21 1234 [facility] Work Phone: 1([phone]) 301-811709-28-2021 Progress note Author George Ash [facility] February 08, 2021 11:42am Note Date/Time February 08, 2021 11:41am [facility] [place] [address] Hem/Onc Follow Up Note - OP Signed Patient: Kirill Echols MR#: [id number] : 1965 Acct:[id number] Age/Sex: 55 / M Type: REG RCR [...] & no additional complaints except as documented [facility] - Medical History Medical History: Medical History [...] for coordination of care (as documented) and mwyn-so-slhc counseling of patient and/or family. Dictated By: George Ash MD DD/ 1140 Signed By: <Electronically signed by MD George Ash> 02/08/21 1142 [facility] Work Phone: [phone]) 701-690609-21-2021 Progress note Author George Ash [facility] February 01, 2021 11:20am Note Date/Time February 01, 2021 11:19[facility] [place] [address] Hem/Onc Follow Up Note - OP Signed Patient: Kirill Echols MR#: [id number] : 1965 Acct:[id number] Age/Sex: 55 / M Type: REG RCR Copies to: MD Rylan Vega MD~ Subjective Date/Time of Service: Date of Service: 02/01/2021 Time of Service: 11:16 Chief Complaint: Patient is here today d/t pain and numbness left side of chest radiates to back. He has been to [facility] and [facility], He went to his family doctor [...] & no additional complaints except as documented [facility] - Medical History Medical History: Medical History [...] % (Auto) 76.8, Lymph % (Auto) 13.5, [place] % (Auto) 7.5, Eos % (Auto) 1.4, Baso % (Auto) 0.8, Neut # (Auto) 5.1, Lymph # (Auto) 0.9 L, [place] # (Auto) 0.5, Eos # (Auto) 0.1, [...] for coordination of care (as documented) and axqm-ob-sbjs counseling of patient and/or family. Dictated By: George Ash MD DD/ 1116 Signed By: <Electronically signed by MD George Ash> 02/01/21 1120 [facility] Work Phone: 1(860) 889-722307-27-2021 Progress note Author George Ash [facility] December 07, 2020 11:02am Note Date/Time December 07, 2020 10:4 0am [facility] [address] [address] Hem/Onc Follow Up Note - OP Signed Patient: Kirill Echols MR#: [id number] : 1965 Acct:[id number] Age/Sex: 55 / M Type: REG RCR [...] with RIGHT supraclavicular region. These may be insurance healthcare representative of metastatic lymph nodes. There is [...] % (Auto) 71.8, Lymph % (Auto) 12.7, [place] % (Auto) 10.8, Eos % (Auto)3.9, Baso % (Auto) 0.8, Neut # (Auto) 4.8, Lymph # (Auto) 0.9 L, [place] # (Auto) 0.7, Eos # (Auto) 0.3, [...] for coordination of care (as documented) and jevy-bb-trli counseling of patient and/or family. Dictated By: George Ash MD DD/ 1039 Signed By: <Electronically signed by MD George Ash> 12/07/20 1102 [facility] Work Phone: [phone]) 621-673904-29-2021 Progress note Author Santhosh Chan [facility] September 09, 2020 11:30am Note Date/Time September 09, 2020 11: 21am [facility] [place] [address] Hem/Onc Follow Up Note - OP Signed Patient: Kirill Echols MR#: [id number] : 1965 Acct:[id number] Age/Sex: 55 / M Type: REG RCR [...] for coordination of care (as documented) and hmje-eg-hymb counseling of patient and/or family. Dictated By: Santhosh Chan MD DD/ 1118 Signed By: <Electronically signed by Santhosh Chan MD> 09/09/20 1130 [facility] Work Phone: 1([phone]) 785-163104-22-2021 Progress note Author Santhosh Chan [facility] September 02, 2020 11:55am Note Date/Time September 02, 2020 11: 53am [facility] [address] [address] Hem/Onc Follow Up Note - OP Signed Patient: Kirill Echols MR#: [id number] : 1965 Acct:[id number] Age/Sex: 55 / M Type: REG RCR [...] & no additional complaints except as documented [facility] - Medical History Medical History: Medical History [...] for coordination of care (as documented) and hjns-gc-zvxr counseling of patient and/or family. Dictated By: Santhosh Chan MD DD/ 115 Signed By: <Electronically signed by Santhosh Chan MD> 09/02/20 1155 [facility] Work Phone: [phone]) [phone] Progress note Author Santhosh Chan [facility] July 06, 2020 1:19pm Note Date/Time July 06, 2020 1:17pm [facility] [place] [address] Hem/Onc Follow Up Note - OP Signed Patient: Kirill Echols MR#: [id number] : 1965 Acct:[id number] Age/Sex: 55 / M Type: REG RCR [...] % (Auto) 65.3, Lymph % (Auto) 17.0, [place] % (Auto) 13.4, Eos % (Auto) 3.8, Baso % (Auto) 0.5, Neut # (Auto) 2.9, Lymph # (Auto) 0.7 L, [place] # (Auto) 0.6, Eos # (Auto) 0.2, [...] process of transitioning her practice to [facility]. (4) Anxiety - Time with Patient Time Spent with Patient (Follow Up Visit): 25 minutes, 35 minutes Coordination of Care & Counseling Time: Greater than 50% of time spent with patient was for coordination of care (as documented) and gmdj-bw-qkcq counseling of patient and/or family. Dictated By: Santhosh Chan MD DD/ 15 Signed By: <Electronically signed by Santhosh Chan MD> 07/06/20 1319 [facility] Work Phone: 1(445) 986-409202-02-2021 Progress note Author Santhosh Chan [facility] June 15, 2020 4:23pm Note Date/Time June 15, 2020 3 :28pm [facility] [place] [address] Hem/Onc Follow Up Note - OP Signed Patient: Kirill Echols MR#: [id number] : 1965 Acct:[id number] Age/Sex: 55 / M Type: REG RCR [...] % (Auto) 57.8, Lymph % (Auto) 19.4, [place] % (Auto) 16.6, Eos % (Auto) 5.5, Baso % (Auto) 0.7, Neut # (Auto) 2.1, Lymph # (Auto) 0.7 L, [place] # (Auto) 0.6, Eos # (Auto) 0.2, [...] process of transitioning her practice to [facility]. -OARRS reviewed, no concern. Refill prescription of 2 weeks of oxycodone IR 10 mg (down from 15 mg)x56 provided today (taken 6-hour as needed). (3) Anxiety - Time with Patient Time Spent with Patient (Follow Up Visit): 35 minutes Coordination of Care & Counseling Time: Greater than 50% of time spent with patient was for coordination of care (as documented) and slqt-ew-yxlf counseling of patient and/or family. Dictated By: Santhosh Chan MD DD/ 1528 Signed By: <Electronically signed by Santhosh Chan MD> 06/15/20 1628 [facility] Work Phone: 1(711) 824-199211-24-2020 Progress note Author George Ash [facility] April 06, 2020 3:03pm Note Date/Time April 06, 2020 3:00pm [facility] [place] [address] Hem/Onc Follow Up Note - OP Signed Patient: Kirill Echols MR#: [id number] : 1965 Acct:[id number] Age/Sex: 54 / M Type: REG RCR [...] PET scan. Patient: Kirill Echols MR#: [id number] : 1965 Acct:[id number] Age/Sex: 54 / M ADM Date: 0 Loc: Room: Type: [facility] RCR Attending Dr: George Ash MD Ordering Provider: George Ash MD Date of Service: 03/23/20 CT/CT chest w con: restaging,C34.90 ([id number]) CT/CT abdomen pelvis w con: restaging,C34.90 Copies [...] proximal great vessels. Patient has a left-sided Lmccvw-o-Svuc catheter. There is continued ill-defined soft tissue [...] the findings below: Patient: Kirill Echols MR#: [id number] : 1965 Acct:[id number] Age/Sex: 54 / M ADM Date: 0 Loc: Room: Type: [facility] Attending Dr: Varghese Duval MD Ordering Provider: [...] with RIGHT supraclavicular region. These may be insurance healthcare representative of metastatic lymph nodes. There is [...] Franklin Gomes M.D.10/31/2019 2:44 PM Dictation Location: [facility] The patient was seen by Dr. James and evaluated by Dr. Duval. 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 [facility] - Medical History Medical History: Medical History [...] for coordination of care (as documented) and gcyf-ft-nbgh counseling of patient and/or family. Dictated By: George Ash MD DD/ 1459 Signed By: <Electronically signed by MD George Ash> 04/06/20 3011 [facility] Work Phone: 1([phone]) 527-647310-20-2020 Progress note Author George Ash [facility] March 02, 2020 11:39am Note Date/Time March 02, 2020 1 1:38am [facility] [place] [address] Hem/Onc Follow Up Note - OP Signed Patient: Kirill Echols MR#: [id number] : 1965 Acct:[id number] Age/Sex: 54 / M Type: REG RCR [...] the findings below: Patient: Kirill Echols MR#: [id number] : 1965 Acct:[id number] Age/Sex: 54 / M ADM Date: 0 Loc: Room: Type: [facility] Attending Dr: Varghese Duval MD Ordering Provider: [...] with RIGHT supraclavicular region. These may be insurance healthcare representative of metastatic lymph nodes. There is [...] Franklin Gomes M.D.10/31/2019 2:44 PM Dictation Location: [facility] The patient was seen by Dr. James and evaluated by Dr. Duval. 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 [facility] - Medical History Medical History: Medical History [...] Neut % (Auto)79.5, Lymph % (Auto) 9.8, [place] % (Auto) 8.4, Eos % (Auto) 1.7, Baso % (Auto) 0.6, Neut # (Auto) 6.1, Lymph # (Auto) 0.8 L, [place] # (Auto) 0.6, Eos # (Auto) 0.1, [...] % (Auto) N/A, Lymph % (Auto) N/A, [place] % (Auto) N/A, Eos % (Auto) N/A, Baso % (Auto) N/A, Neut # (Auto) N/A, Lymph # (Auto) N/A, [place] # (Auto) N/A, Eos # (Auto) N/A, [...] for coordination of care (as documented) and udqt-qh-vvcn counseling of patient and/or family. Dictated By: George Ash MD DD/ 3703 Signed By: <Electronically signed by MD George Ash> 03/02/20 1134 [facility] Work Phone: [phone] Progress note Author Leoncio Kowalski [facility] February 25, 2020 3:54pm Note Date/Time February 25, 2020 2 :49pm [facility] [place] [address] Rad Onc Follow Up Note - OP Signed Patient: Kirill Echols MR#: [id number] : 1965 Acct:[id number] Age/Sex: 54 / M Type: REG RCR Copies to: MD Rylan Vega MD James E Fanning, MD~ Subjective - Service Date/Time Date: 02/25/20 Time: 14:49 - Diagnosis 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 He has chronic [...] signed by Leoncio Kowalski MD> 02/25/20 1554 [facility] Work Phone: [phone] Progress note Author George Ash [facility] February 10, 2020 1:23pm Note Date/Time February 10, 2020 1:20pm [facility] [place] [address] Hem/Onc Follow Up Note - OP Signed Patient: Kirill Echols N MR#: [id number] : 1965 Acct:[id number] Age/Sex: 54 / M Type: [facility] Copies to: MD Rylan Vega MD~ [...] the findings below: Patient: Kirill Echols MR#: [id number] : 1965 Acct:[id number] Age/Sex: 54 / M ADM Date: 0 Loc: Room: Type: [facility] Attending Dr: Varghese Duval MD Ordering Provider: Varghese Duval MD Date of Service: 10/31/19 PET/PET tumor init tx strat sb-mt: R91.1 R91.8 R59.1 Copies to: MD Rylan Vega MD [facility] ~ PET/CT FUSION IMAGING CLINICAL INFORMATION: Single [...] with RIGHT supraclavicular region. These may be insurance healthcare representative of metastatic lymph nodes. There is [...] Franklin Gomes M.D.10/31/2019 2:44 PM Dictation Location: [facility] The patient was seen by Dr. James and evaluated by Dr. Duval. 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 [facility] - Medical History Medical History: Medical History [...] % (Auto) 71.8, Lymph % (Auto) 16.0, [place] % (Auto) 10.5, Eos % (Auto) 0.9, Baso % (Auto) 0.8, Neut # (Auto) 4.8, Lymph # (Auto) 1.1, [place] # (Auto) 0.7, Eos # (Auto) 0.1, Baso # (Auto) 0.1, Nucleated RBC % (auto) 0.1 02/04/20 08:35: WBC 13.5 H, Corrected WBC 13.5 H, RBC 3.87 L, Hgb 12.3 L, Hct 38.1 L, MCV 98.6, MCH 31.7, MCHC 32.2 L, RDW 21.3 H, Plt Count 264, MPV 7.4, Neut % (Auto) 72.3, Lymph % (Auto) 7.8, [place] % (Auto) 18.7, Eos % (Auto) 0.3, Baso % (Auto) 0.9, Neut # (Auto) 9.7 H, Lymph # (Auto) 1.1, [place] # (Auto) 2.5 H,Eos # (Auto) 0.0, [...] for coordination of care (as documented) and rpxy-ir-lgpk counseling of patient and/or family. Dictated By: George Ash MD DD/ 1319 Signed By: <Electronically signed by MD George Ash> 02/10/20 1323 [facility] Work Phone: [phone] Progress note Author George Ash [facility] January 20, 2020 11:30am Note Date/Time January 20, 2020 11:28am [facility] [place] [id number] Hem/Onc Follow Up Note - OP Signed Patient: Kirill Echols MR#: [id number] : 1965 Acct:[id number] Age/Sex: 54 / M Type: REG RCR [...] on pro which I did add today. [facility] is following him now for palliative pain control and this is clearly better. He is off of steroids. His synovitis and arthritis have resolved. [facility] - Medical History Medical History: Medical History [...] for coordination of care (as documented) and ljzm-yu-vpjt counseling of patient and/or family. Dictated By: George Ash MD DD/ 1127 Signed By: <Electronically signed by MD George Ash> 01/20/20 1130 [facility] Work Phone: [phone] Progress note Author George Ash [facility] December 30, 2019 10:35am Note Date/Time December 30, 2019 10 :01[facility] at [address] [address] Hem/Onc Follow Up Note - OP Signed Patient: Kirill Echols MR#: [id number] : 1965 Acct:[id number] Age/Sex: 54 / M Type: REG RCR [...] I have instructed him to get some xwic-rzq-dkgljbm Prilosec for this. He has some type [...] the findings below: Patient: Kirill Echols MR#: [id number] : 1965 Acct:[id number] Age/Sex: 54 / M ADM Date: 0 [...] with RIGHT supraclavicular region. These may be insurance healthcare representative of metastatic lymph nodes. There is [...] Franklin Gomes M.D.10/31/2019 2:44 PM Dictation Location: [facility] The patient was seen by Dr. James and evaluated by Dr. Duval. 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 [facility] - Medical History Medical History: Medical History [...] % (Auto) N/A, Lymph % (Auto) N/A, [place] % (Auto) N/A, Eos % (Auto) N/A, Baso % (Auto) N/A, Neut # (Auto) N/A, Lymph # (Auto) N/A, [place] # (Auto) N/A, Eos # (Auto) N/A, [...] for coordination of care (as documented) and iihn-ls-zvsb counseling of patient and/or family. Dictated By: George Ash MD DD/ 0959 Signed By: <Electronically signed by MD George Ash> 12/30/19 4536 [facility] Work Phone: [phone] Progress note Author George Ash [facility] December 23, 2019 10:25am Note Date/Time December 23, 2019 10 :18am [facility] at [address] [address] Hem/Onc Follow Up Note - OP Signed Patient: Kirill Echols MR#: [id number] : 1965 Acct:[id number] Age/Sex: 54 / M Type: REG RCR [...] the findings below: Patient: Kirill Echols MR#: [id number] : 1965 Acct:[id number] Age/Sex: 54 / M ADM Date: 0 Loc: Room: Type: [facility] Attending Dr: Varghese Duval MD Ordering Provider: [...] with RIGHT supraclavicular region. These may be insurance healthcare representative of metastatic lymph nodes. There is [...] Franklin Gomes M.D.10/31/2019 2:44 PM Dictation Location: [facility] The patient was seen by Dr. James and evaluated by Dr. Duval. 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 [facility] - Medical History Medical History: Medical History [...] for coordination of care (as documented) and bryf-yh-tblt counseling of patient and/or family. Dictated By: George Ash MD DD/ 1015 Signed By: <Electronically signed by MD George Ash> 12/23/19 1025 [facility] Work Phone: [phone] Progress note Author George Ash [facility] December 16, 2019 11:08am Note Date/Time December 16, 2019 11: 01am [facility] at [address] [address] Hem/Onc Follow Up Note - OP Signed Patient: Kirill Echols MR#: [id number] : 1965 Acct:[id number] Age/Sex: 54 / M Type: REG RCR [...] the findings below: Patient: Kirill Echols MR#: [id number] : 1965 Acct:[id number] Age/Sex: 54 / M ADM Date: 0 Loc: Room: Type: [facility] Attending Dr: Varghese Duval MD Ordering Provider: [...] with RIGHT supraclavicular region. These may be insurance healthcare representative of metastatic lymph nodes. There is [...] Franklin Gomes M.D.10/31/2019 2:44 PM Dictation Location: [facility] The patient was seen by Dr. James and evaluated by Dr. Duval. 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 [facility] - Medical History Medical History: Medical History [...] % (Auto) 33.7, Lymph % (Auto) 41.5, [place] % (Auto) 21.4, Eos % (Auto) 2.0, Baso % (Auto) 1.4, Neut # (Auto) 1.6 L, Lymph # (Auto) 1.9, [place] # (Auto) 1.0 H, Eos # (Auto) [...] % (Auto) 21.1, Lymph % (Auto) 51.6, [place] % (Auto) 24.2, Eos % (Auto) 1.9, Baso % (Auto) 1.2, Neut # (Auto) 0.5 L, Lymph # (Auto) 1.3, [place] # (Auto) 0.6, Eos # (Auto) 0.0, [...] for coordination of care (as documented) and gbdl-gx-uesp counseling of patient and/or family. Dictated By: George Ash MD DD/ 1059 Signed By: <Electronically signed by MD George Ash> 12/16/19 1108 [facility] Work Phone: [phone] Progress note Author George Ash [facility] December 09, 2019 11:13am Note Date/Time December 09, 2019 11:1 1am [facility] at [address] [address] Hem/Onc Follow Up Note - OP Signed Patient: Kirill Echols MR#: [id number] : 1965 Acct:[id number] Age/Sex: 54 / M [facility] Copies to: MD Rylan Vega MD~ [...] the findings below: Patient: Kirill Echols MR#: [id number] : 1965 Acct:[id number] Age/Sex: 54 / M ADM Date: 0 Loc: Room: Type: [facility] Attending Dr: Varghese Duval MD Ordering Provider: [...] with RIGHT supraclavicular region. These may be insurance healthcare representative of metastatic lymph nodes. There is [...] Franklin Gomes M.D.10/31/2019 2:44 PM Dictation Location: [facility] The patient was seen by Dr. James and evaluated by Dr. Duval. 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 [facility] - Medical History Medical History: Medical History [...] 7 Days 12/09/19 09:14: PHA Creatinine Clear [id number], Sodium 130 L, Potassium 4.3, Chloride 99, [...] at thattime as well. 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 Dictated By: George Ash MD DD/ 1109 Signed By: <Electronically signed by MD George Ash> 12/09/19 1113 [facility] Work Phone: [phone] Progress note Author George Ash [facility] November 25, 2019 11:06am Note Date/Time November 25, 2019 11:0 1am [facility] at [address] [address] Hem/Onc Follow Up Note - OP Signed Patient: Kirill Echols MR#: [id number] : 1965 Acct:[id number] Age/Sex: 54 / M Type: REG RCR [...] the findings below: Patient: Kirill Echols MR#: [id number] : 1965 Acct:[id number] Age/Sex: 54 / M ADM Date: 0 [...] with RIGHT supraclavicular region. These may be insurance healthcare representative of metastatic lymph nodes. There is [...] Franklin Gomes M.D.10/31/2019 2:44 PM Dictation Location: [facility] The patient was seen by Dr. James and evaluated by Dr. Duval. 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 The patient does have evidence of hyponatremia. It is somewhat mild. He does have clubbing on physical exam. [facility] - Medical History Medical History: Medical History [...] % (Auto) 62.6, Lymph % (Auto) 28.7, [place] % (Auto) 6.5, Eos % (Auto) 1.5, Baso % (Auto) 0.7, Neut # (Auto) 4.6, Lymph # (Auto) 2.1, [place] # (Auto) 0.5, Eos # (Auto) 0.1, Baso # (Auto) 0.0, Nucleated RBC % (auto) 0.2 11/24/19 07:33: PHA Creatinine Clear 75.4036434265, Sodium 128 L, Potassium 3.7,Chloride 93 L, [...] 11/21/19 13:20: COVID-19 PCR Interp N/A, COVID-19 (DENAA) Not detected 11/18/19 14:04: PHA Creatinine Clear 68.4656062568, Sodium 128 L, Potassium 4.8,Chloride 93 L, [...] Neut % (Auto)N/A, Lymph % (Auto) N/A, [place] % (Auto) N/A, Eos % (Auto) N/A, Baso % (Auto) N/A,Neut # (Auto) N/A, Lymph # (Auto) N/A, [place] # (Auto) N/A, Eos # (Auto) N/A, [...] for coordination of care (as documented) and uuht-ob-hrvq counseling of patient and/or family. Dictated By: George Ash MD DD/ 1100 Signed By: <Electronically signed by MD George Ash> 11/25/19 1106 [facility] Work Phone: [phone] Consult note Author Leoncio Kowalski [facility] November 20, 2019 2:44pm Note Date/Time November 20, 2019 1:38p m [facility] [place] [address] Rad Onc Consult Note - OP Signed Patient: Kirill Echols MR#: [id number] : 1965 Acct:[id number] Age/Sex: 54 / M Type: REG RCR Copies to: MD Rylan Vega MD James E Fanning, MD~ HPI - Service Date/Time Date: 11/20/19 Time: 09:50 Diagnosis: 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 [facility] - Medical History Medical History: Medical History [...] any. Dictated By: Leoncio Kowalski MD DD/ 1004 Signed By: <Electronically signed by Leoncio Kowalski MD> 11/20/19 2462 [facility] Work Phone: [phone] Progress note Author George Ash [facility] November 20, 2019 11:12am Note Date/Time November 20, 2019 11:06 am [facility] [place] [address] Hem/Onc Follow Up Note - OP Signed Patient: Kirill Echols MR#: [id number] : 1965 Acct:[id number] Age/Sex: 54 / M Type: REG RCR [...] see Dr. Duval tomorrow for consideration of Pdsjan-g-Groh. Chemotherapy education will be tomorrow November 20. [...] the findings below: Patient: Kirill Echols MR#: [id number] : 1965 Acct:[id number] Age/Sex: 54 / M ADM Date: 0 [...] with RIGHT supraclavicular region. These may be insurance healthcare representative of metastatic lymph nodes. There is [...] Franklin Gomes M.D.10/31/2019 2:44 PM Dictation Location: [facility] The patient was seen by Dr. James and evaluated by Dr. Duval. 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 The patient does have evidence of hyponatremia. It is somewhat mild. He does have clubbing on physical exam. [facility] - Medical History Medical History: Medical History [...] 7 Days 11/18/19 14:04: PHA Creatinine Clear [id number], Sodium 128 L, Potassium 4.8,Chloride 93 L, [...] Neut % (Auto)N/A, Lymph % (Auto) N/A, [place] % (Auto) N/A, Eos % (Auto) N/A, Baso % (Auto) N/A,Neut # (Auto) N/A, Lymph # (Auto) N/A, [place] # (Auto) N/A, Eos # (Auto) N/A, [...] cancer The patient will be seen for Vcwgbp-n-Wcer tomorrow. Head CT has been ordered and [...] for coordination of care (as documented) and wbkk-ez-jrff counseling of patient and/or family. Dictated By: George Ash MD DD/ 1104 Signed By: <Electronically signed by MD George Ash> 11/20/19 1112 [facility] Work Phone: [phone] Consult note Author George Ash [facility] November 18, 2019 2:02pm Note Date/Time November 18, 2019 1:50p m [place] [address] Hem/Onc Consult Note - OP Signed Patient: Kirill Echols MR#: [id number] : 1965 Acct:[id number] Age/Sex: 54 / M Type: REG RCR [...] the findings below: Patient: Kirill Echols MR#: [id number] : 1965 Acct:[id number] Age/Sex: 54 / M ADM Date: 0 [...] with RIGHT supraclavicular region. These may be insurance healthcare representative of metastatic lymph nodes. There is [...] He does have clubbing on physical exam. [facility] - Medical History Medical History: Medical History [...] for immediate head CT. He will need Nilzck-b-Hzih placement and I will refer him to Dr. Duval for this. The patient has fairly limited disease in the chest and mediastinum and may very well be a candidate for combined modality therapy with chemotherapy and radiation. I will refer himto radiation oncology here at [facility]. We will recommend to him immediate [...] for coordination of care (as documented) and mpbd-uc-yfbk counseling of patient and/or family. Dictated By: George Ash MD DD/ 1349 Signed By: <Electronically signed by MD George Ash> 11/18/19 1402 [facility] Work Phone: Evaluation noteNo assessment information available [facility] Work Phone: Evaluation note* Diagnosis Onset Date Resolution Status Anemia due to chemotherapy a cute Anxiety acute Cancer-related pain acute Chest pain acute Diarrhea acute Edema acute Joint pain acute Neck pain acute Small cell lung cancer chron ic [facility] Work Phone: Evaluation note* Diagnosis Onset Date Resolution Status Anemia due to chemotherapy a cute Anxiety acute Cancer-related pain acute Chest pain acute Diarrhea acute Edema acute Joint pain acute Neck pain acute Small cell lung cancer chron ic Chest pain acute [facility] Work Phone: Evaluation note* Diagnosis Onset Date Resolution Status Chest pain acute Small cell lung cancer acute Anemia due to chemotherapy a cute Anxiety acute Cancer-related pain acute Chest pain acute Diarrhea acute Edema acute Joint pain acute Neck pain acute Small cell lung cancer chron ic [facility] Work Phone: Evaluation note* Diagnosis Onset Date Resolution Status Chest pain acute Small cell lung cancer acute Anemia due to chemotherapy a cute Anxiety acute Cancer-related pain acute Chest pain acute Diarrhea acute Edema acute Joint pain acute Neck pain acute Small cell lung cancer chron ic Small cell lung cancer acute [facility] Work Phone: Evaluation note* Diagnosis [...] Diarrhea resolved Edema resolved Neck pain resolved [facility] Work Phone: Evaluation note* Diagnosis Onset Date Resolution Status Cancer-related pain acute Chronic hyponatremia acute Joint pain acute Shortness of breath acute Weight loss acute Small cell lung cancer chron ic Anxiety resolved Chest pain resolved Diarrhea resolved Edema resolved Neck pain resolved [facility] Work Phone: Evaluation note* Diagnosis Onset Date Resolution Status Cancer-related pain acute Chronic hyponatremia acute Joint pain acute Shortness of breath acute Weight loss acute Small cell lung cancer chron ic Anxiety resolved Chest pain resolved Diarrhea resolved Edema resolved Neck pain resolved Small cell lung cancer chron [facility] Work Phone: History and physical note Author Tez Irene [facility] April 10, 2022 3:12pm Note Date/Time April 10, 2022 3:12pm [facility] [address] [place] [address] Hospitalist H&P Signed Patient: Kirill Echols MR#: [id number] : 1965 Acct:[id number] Age/Sex: 56 / M Adm Date: 2 Loc: 3T Room: [address] [place] [address] Type: ADM INOo Attending Dr: Tez Irene [...] % (Auto) 14.2 % (.) 04/10/22 10:20 [place] % (Auto) 9.9 % (.) 04/10/22 10:20 Eos % (Auto) 1.5 % (.) 04/10/22 10:20 Baso % (Auto) 1.0 % (.) 04/10/22 10:20 Neut # (Auto) 4.5 x10E3/uL (1.8-7.7) 04/10/22 10:20 Lymph # (Auto) 0.9 x10E3/uL (1.00-4.8) L 04/10/22 10:20 [place] # (Auto) 0.6 x10E3/uL (0.0-0.8) 04/10/22 10:20 [...] signed by Tez Irene MD> 04/10/22 1512 [facility] Work Phone: Hisqzcg general Narrative - Reported* Type Description Date Medical History COPD Medical History anxiety Medical History HTN Medical History Lung CA Surgical History Vasectomy Surgical History Right wrist surgery 2005 Surgical History Hernia repair Hospitalization History Related to [facility] Other History general Narrative - Reported* Type Description Date Medical History COPD Medical History anxiety Medical History HTN Medical History Lung CA, small cell remission Surgical History Vasectomy Surgical History Right wrist surgery 2005 Surgical History Hernia repair Hospitalization History Related to [facility] Other Hospital Discharge instructionsAmbulatory Orders* Initiate Home Health Time Frame: 1 Day, Location: Determined By Patient [facility] Work Phone: Hospital Discharge instructionsAmbulatory Orders* Initiate Home Health Time Frame: 1 Day, Location: Determined By Patient * Oncology Histology Time Frame: 10/03/22, Location: Determined By Patient * Oncology Histology Time Frame: 10/17/22, Location: Determined By Patient * Oncology Histology Time Frame: 10/10/22, Location: Determined By Patient [facility] Work Phone: Progress note Author Estela Varma [facility] February 27, 2022 2:56pm Note Date/Time February 27, 2022 2 :51pm [facility] [place] [id number] Hem/Onc Follow Up Note - OP Signed Patient: Kirill Echols MR#: [id number] : 1965 Acct:[id number] Age/Sex: 56 / M Type: REG RCR [...] for review. No concerns voiced. HPI: 54-year-old -Aust[place] gentleman history of smoking 40 pack years [...] overwhelming for recurrence. He lives alone in [place]. His children live in [place]. His left him 8 months ago and [...] and urinary tract. Otherwise, there is an Kbcyen-v-Camh on the left. The lungs demonstrate emphysematous [...] He is considering moving back down to [facility] where he is from. 02/27/22 he [...] for coordination of care (as documented) and cbnc-an-kqja counseling of patient and/or family. [facility] - Medical History Medical History: Medical History [...] 09/14/21 14:56 KB (Rec: 09/14/21 14:59 KB [id number]) Distress Screening Distress score of 4 or more discussed Yes with patient? Distress screening follow up: Spoke with patient via phone. Patient is doing ok at this time. Recently had a heart cath which was negative. He is happpy that his scans are good. Dr. Perez is working on getting him into [facility]. - Lab Results Diagram of Most Recent [...] 09/09/21 [History Confirmed 02/27/22] Dictated By: Estela aVrma II, DO DD/ 1450 Signed By: <Electronically signed by Estela Varma II, DO> 02/27/22 1456 [facility] Work Phone: Progress note Author Estela Varma [facility] April 14, 2022 12:02pm Note Date/Time April 14, 2022 1 1:50am [facility] [place] [address] Hem/Onc Follow Up Note - OP Signed Patient: Kirill Echols MR#: [id number] : 1965 Acct:[id number] Age/Sex: 56 / M Type: REG RCR [...] concerns voiced at this time. HPI: 54-year-old -Austrian gentleman history of smoking 40 pack years [...] overwhelming for recurrence. He lives alone in [place]. His children live in [place]. His left him 8 months ago and [...] and urinary tract. Otherwise, there is an Vfubmu-v-Mmat on the left. The lungs demonstrate emphysematous [...] He is considering moving back down to [facility] where he is from. 02/27/22 he [...] for coordination of care (as documented) and dmwe-fz-fyvx counseling of patient and/or family. [facility] - Medical History Medical History: Medical History [...] 03/01/22 15:44 KB (Rec: 03/01/22 15:45 KB [id number]) Distress Screening Distress score of 4 or [...] % (Auto) 71.4, Lymph % (Auto) 16.2, [place] % (Auto) 8.6, Eos % (Auto) 2.9, Baso % (Auto) 0.9, Neut # (Auto) 4.5, Lymph # (Auto) 1.0, [place] # (Auto) 0.5, Eos# (Auto) 0.2, Baso [...] by Estela Varma II DO> 04/14/22 1202 [facility] Work Phone: Progress note Author Dixie Olivia [facility] June 22, 2022 2:24pm Note Date/Time June 22, 2022 2 :16pm [facility] [place] [address] Hem/Onc Follow Up Note - OP Signed Patient: Kirill Echols MR#: [id number] : 1965 Acct:[id number] Age/Sex: 57 / M Type: REG RCR Copies to: MD Rylan Vega MD~ Subjective Date/Time of Service: Date of Service: 06/22/2022 Time of Service: 14:09 Chief Complaint: Patient is here for a 2 month follow up with, had chest tube placed 06/16/2022. No concerns voiced at this time. HPI: 54-year-old -Aust[place] gentleman history of smoking 40 pack years [...] overwhelming for recurrence. He lives alone in [place]. His children live in [place]. His left him 8 months ago and [...] and urinary tract. Otherwise, there is an Upkbqs-d-Hmhq on the left. The lungs demonstrate emphysematous [...] He is considering moving back down to [facility] he is from. 02/27/22 he [...] diaphoresis. No orthostasis or dizziness or palpitations. [facility] - Medical History Medical History: Medical History [...] 03/01/22 15:44 KB (Rec: 03/01/22 15:45 KB [id number]) Distress Screening Distress score of 4 or [...] for coordination of care (as documented) and royn-ni-hrow counseling of patient and/or family. 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 HPI: 54-year-old -Austrian gentleman history of smoking 40 pack years [...] overwhelming for recurrence. He lives alone in [place]. His children live in [place]. His left him 8 months ago and [...] and urinary tract. Otherwise, there is an Hcbkhl-u-Roik on the left. The lungs demonstrate emphysematous [...] add on appointment after ER visit at [facility] on August 29, 2022 [...] for coordination of care (as documented) and wsan-gt-cwlj counseling of patient and/or family. [facility] - Medical History Medical History: Medical History [...] 03/01/22 15:44 KB (Rec: 03/01/22 15:45 KB [id number]) Distress Screening Distress score of 4 or [...] by Estela Varma II DO> 09/19/22 1002 [facility] Work Phone: Progress note Author Estela Varma [facility] December 25, 2022 11:43am Note Date/Time December 25, 2022 11 :39am [facility] [place] [address] Hem/Onc Follow Up Note - OP Signed Patient: Kirill Echols MR#: [id number] : 1965 Acct:[id number] Age/Sex: 57 / M Type: REG RCR [...] today. No new concerns voiced. HPI: 54-year-old -Austrian gentleman history of smoking 40 pack years [...] overwhelming for recurrence. He lives alone in [place]. His children live in [place]. His left him 8 months ago and [...] and urinary tract. Otherwise, there is an Qhfyqh-l-Rlmv on the left. The lungs demonstrate emphysematous [...] add on appointment after ER visit at [facility] on August 29, 2022 [...] for coordination of care (as documented) and ouaq-qa-mkkm counseling of patient and/or family. [facility] - Medical History Medical History: Medical History [...] 03/01/22 15:44 KB (Rec: 03/01/22 15:45 KB [id number]) Distress Screening Distress score of 4 or [...] % (Auto) 70.2, Lymph % (Auto) 15.7, [place] % (Auto) 7.8, Eos % (Auto) 5.0, Baso % (Auto) 1.3, Nucleat RBC Rel Count 0.0, Neut # (Auto) 4.2, Lymph # (Auto) 0.9 L, [place] # (Auto) 0.5, Eos # (Auto) 0.3, [...] by Estela Varma II, DO> 12/25/22 1143 [facility] Work Phone: Summary Purpose Family [...] section and content) DATE CREATED AUTHOR 10/30/2017 [facility] DATE CREATED AUTHOR AUTHOR'S ORGANIZ ATION 05/14/2018 [facility] DATE CREATED AUTHOR AUTHOR'S ORGANIZ ATION 03/05/2020 [facility] DATE CREATED AUTHOR AUTHOR'S ORGANIZ ATION 08/07/2020 [facility] DATE CREATED AUTHOR AUTHOR'S ORGANIZ ATION 08/20/2020 [facility] DATE CREATED AUTHOR AUTHOR'S ORGANIZ ATION 12/02/2021 [facility] DATE CREATED AUTHOR AUTHOR'S ORGANIZ ATION 03/04/2022 [facility] DATE CREATED AUTHOR AUTHOR'S ORGANIZ ATION 10/23/2022 [facility] DATE CREATED AUTHOR AUTHOR'S ORGANIZ ATION 09/14/2023 [facility] DATE CREATED AUTHOR AUTHOR'S ORGANIZ ATION 12/01/2023 [facility] DATE CREATED AUTHOR AUTHOR'S ORGANIZ ATION 12/05/2023 [facility] EPIC REASON FOR VISIT (unrecogniz [...] set up for time @ [facility] by Dr. AndreaRef: Dr Varma- Pleural [...] Active Humberto Molina PA-C Emergency Provider Active [place] Machine Operator Relationship Specialty Start Date End Date Rylan Andrea MD [address] [place] [address] PCP - General Family Medicine 10/16/22 Marilu Bonner, [employer] MECHANIC [address] [place] [address] Nurse Practitioner Family Medicine 04/03/23 Nilsa Isidro NP [address] [place] [address] Nurse Practitioner Pulmonary Disease 04/03/23 Morenita Gomes, RN Registered Nurse Family Medicine 06/18/23 Sanjuana Van LSW Repairer [employer] Family Medicine 06/18/23 [place] Machine Operator Relationship Specialty Start Date End Date Rylan Andrea MD [address] [place] [address] PCP - General Family Medicine 10/16/22 Marilu Bonner, [employer] MECH[employer]IC [address] [place] [address] Nurse Practitioner Family Medicine 04/03/23 Nilsa Isidro, ELLE [address] [place] [address] Nurse Practitioner Pulmonary Disease 04/03/23 Morenita Gomes, ARTHUR Registered Nurse Family Medicine 06/18/23 Sanjuana Van LSW [employer] Family Medicine 06/18/23 FOR RECORDS PERTAINING TO [...] BE BASED ON THE PRIMARY CLINICAL RECORDS. [facility] [employer] provides no warranty or guarantee of the accuracy or completeness of information in this document.
[2023-12-13 17:13] LABS: Anion Gap 16.7; BUN Creatinine Ratio 8.8; Calcium 8.5 mg/dL (8.5-10.1); Carbon Dioxide 20.8 mmol/L (21.0-32.0); Chloride 91 mmol/L (98-107); Estimated GFR (African America 34 (>=60); Estimated GFR (Non-African Ame 28 (>=60); Glucose 95 mg/dL (74-106); Potassium 4.5 mmol/L (3.5-5.1)
[2023-12-13 17:14] LABS: Sodium 124 mmol/L (136-145)
[2023-12-13] MEDS: 0.9 % SODIUM CHLORIDE 1,000 ML 75 ML IV (17:18)
[2023-12-13] MEDS: BUDESONIDE 0.5 MG/2 ML AMPULE NEB IH (20:03)
[2023-12-13] MEDS: ALBUTEROL SULFATE 2.5 MG/3 ML VIAL NEB IH (20:03)
--- NOTE | 2023-12-13 21:11 | PC.NURSE ---
labs drawn as ordered. pt tolerated well
[2023-12-13] MEDS: QUETIAPINE FUMARATE 100 MG TABLET 200 MG PO (21:19)
[2023-12-13] MEDS: HEPARIN SODIUM (PORCINE) 5,000 UNIT/ML VIAL 5000 UNIT SUBQ (21:19)
[2023-12-13 21:24] LABS: Anion Gap 15.2; BUN Creatinine Ratio 10.6; Calcium 7.9 mg/dL (8.5-10.1); Chloride 93 mmol/L (98-107); Estimated GFR (African America 35 (>=60); Estimated GFR (Non-African Ame 28 (>=60); Glucose 161 mg/dL (74-106); Potassium 4.2 mmol/L (3.5-5.1)
[2023-12-13 21:29] LABS: Sodium 124 mmol/L (136-145)
[2023-12-14] VITALS (19 sets, daily range): BP systolic 102–126; BP diastolic 61–75; PULSE 102–129; TEMP 36.3–36.8; O2SAT 91–95; BMI 19.0
[2023-12-14 02:07] LABS: A. calcoaceticus-baumannii Cpx NOT DETECTED (NOT DETECTE); Bacteroides fragilis NOT DETECTED (NOT DETECTE); Candida albicans NOT DETECTED (NOT DETECTE); Candida auris NOT DETECTED (NOT DETECTE); Candida glabrata NOT DETECTED (NOT DETECTE); Candida krusei NOT DETECTED (NOT DETECTE); Enterobacter cloacae complex NOT DETECTED (NOT DETECTE); Enterococcus faecalis NOT DETECTED (NOT DETECTE); Enterococcus faecium NOT DETECTED (NOT DETECTE); Haemophilus influenzae NOT DETECTED (NOT DETECTE); Klebsiella aerogenes NOT DETECTED (NOT DETECTE); Klebsiella pneumoniae group NOT DETECTED (NOT DETECTE); Listeria monocytogenes NOT DETECTED (NOT DETECTE); Neisseria meningitidis NOT DETECTED (NOT DETECTE); Proteus spp. NOT DETECTED (NOT DETECTE); Pseudomonas aeruginosa NOT DETECTED (NOT DETECTE); Salmonella spp. NOT DETECTED (NOT DETECTE); Serratia marcescens NOT DETECTED (NOT DETECTE); Staphylococcus epidermidis NOT DETECTED (NOT DETECTE); Staphylococcus lugdunensis NOT DETECTED (NOT DETECTE); Staphylococcus spp. NOT DETECTED (NOT DETECTE); Stenotrophomonas maltophilia NOT DETECTED (NOT DETECTE); Streptococcus agalactiae NOT DETECTED (NOT DETECTE); Streptococcus pneumoniae NOT DETECTED (NOT DETECTE); Streptococcus pyogenes NOT DETECTED (NOT DETECTE); Streptococcus spp. NOT DETECTED (NOT DETECTE)
[2023-12-14 02:08] LABS: Candida parapsilosis NOT DETECTED (NOT DETECTE); Candida tropicalis NOT DETECTED (NOT DETECTE); Cryptococcus neoformans/gattii NOT DETECTED (NOT DETECTE)
[2023-12-14] MEDS: 0.9 % SODIUM CHLORIDE 1,000 ML 100 ML IV (03:08)
[2023-12-14 03:17] LABS: CTX-M NOT DETECTED (NOT DETECTE); IMP NOT DETECTED (NOT DETECTE); KPC NOT DETECTED (NOT DETECTE); NDM NOT DETECTED (NOT DETECTE); OXA-48-like NOT DETECTED (NOT DETECTE); mcr-1 NOT DETECTED (NOT DETECTE)
[2023-12-14 03:18] LABS: Source BLOOD; VIM NOT DETECTED (NOT DETECTE)
[2023-12-14 03:19] LABS: Enterobacterales DETECTED (NOT DETECTE)
[2023-12-14] MEDS: ALBUTEROL SULFATE 2.5 MG/3 ML VIAL NEB IH ×4 (04:43→20:11)
[2023-12-14] MEDS: LEVOTHYROXINE SODIUM 100 MCG TABLET PO (05:56)
[2023-12-14] MEDS: HEPARIN SODIUM (PORCINE) 5,000 UNIT/ML VIAL 5000 UNIT SUBQ ×3 (05:56→21:04)
[2023-12-14 06:16] LABS: Basophils Absolute Auto 0.1 10^3/uL (0.0-0.1); Basophils Percent Auto 0.5 % (0.2-2.0); Eosinophils Absolute Auto 0.1 10^3/uL (0.0-0.7); Eosinophils Percent Auto 0.8 % (0.9-7.0); Hematocrit 31.3 % (42.0-54.0); Hemoglobin 11.4 g/dL (14.0-18.0); Immature Granulocytes Pct Auto 3.1 % (0.0-0.5); Lymphocytes Absolute Auto 0.3 10^3/uL (1.2-3.8); Lymphocytes Percent Auto 2.6 % (20.5-60.0); Mean Corpuscular HGB Conc 36.4 g/dL (29.9-35.2); Mean Corpuscular Hemoglobin 31.8 pg (25.9-34.0); Mean Corpuscular Volume 87.4 fL (80.0-94.0); Mean Platelet Volume 10.5 fL (9.5-13.5); Monocytes Absolute Auto 0.4 10^3/uL (0.3-0.8); Monocytes Percent Auto 4.5 % (1.7-12.0); Neutrophils Absolute Auto 8.7 10^3/uL (1.4-6.5); Neutrophils Percent Auto 88.5 % (43.0-75.0); Platelet Count 73 10^3/uL (150-450); Red Blood Count 3.58 10^6/uL (4.70-6.10); Red Cell Distribution Width 14.5 % (11.0-15.0); White Blood Count 9.8 10^3/uL (4.0-11.0)
[2023-12-14 06:41] LABS: Alanine Aminotransferase 21 U/L (16-63); Albumin Globulin Ratio 0.7; Albumin Level 2.2 g/dL (3.4-5.0); Alkaline Phosphatase 101 U/L (46-116); Anion Gap 16.2; Aspartate Amino Transferase 16 U/L (15-37); BUN Creatinine Ratio 10.3; Bilirubin Total 0.9 mg/dL (0.2-1.0); Carbon Dioxide 18.3 mmol/L (21.0-32.0); Chloride 96 mmol/L (98-107); Estimated GFR (African America 29 (>=60); Estimated GFR (Non-African Ame 24 (>=60); Globulin 3.1 g/dL; Glucose 101 mg/dL (74-106); Potassium 4.5 mmol/L (3.5-5.1); Sodium 126 mmol/L (136-145); Total Protein 5.3 g/dL (6.4-8.2)
[2023-12-14] MEDS: FOLIC ACID 1 MG TABLET PO (09:03)
[2023-12-14] MEDS: FOLIC ACID/VIT B6/VIT B12 TABLET 1 TAB PO (09:03)
[2023-12-14] MEDS: QUETIAPINE FUMARATE 100 MG TABLET PO (09:03)
[2023-12-14] MEDS: ASPIRIN 81 MG TABLET.DR PO (09:03)
[2023-12-14] MEDS: OXYCODONE HCL 5 MG TABLET PO ×2 (09:08→18:31)
--- NOTE | 2023-12-14 09:44 | CM.NOTE ---
Rounds made with Dr. Ferris. Kirill describes symptoms leading up to ER visit. Dr. Ferris reviews plan of care. Kirill verbalizes understanding.
--- NOTE | 2023-12-14 09:48 | P.HP_ITS ---
HPI H&P: HPI History of Present Illness Chief complaint: RIGHT FLANK PAIN CYSTITIS YANG DEHYDRATION SEPSIS Narrative: 58-year-old male who lives by himself at home presented to ER last night with right flank pain, nausea, vomiting. Patient reports that for the past 1 week he has been feeling nauseous, throwing up and inability to keep his food down. He also reports right-sided severe flank pain that is persistent that radiates anteriorly pubic region. He also had watery diarrhea ongoing for the past couple of days. Patient reports feeling tired, lethargic. He is unsure if he had a fever or not. Workup in ER revealed severe sepsis due to pyelonephritis with evidence of acute kidney injury and severe hyponatremia. Patient was admitted overnight and started on IV fluids and IV Rocephin. He has minimal urine output since admission and hence we were not able to test his urine for UTI. This morning upon my evaluation, patient reports feeling more or less the same as when he arrived. He is a still in considerable right flank pain. Patient was very emotional and tearful during our conversation Opioid HPI Opioid Management Most Recent Pain and Opioid Data: Last Pain Scale 6 12/14/23 09:08 Last Pain Assessment 12/14/23 09:00 Last ED Pain Assessment 12/13/23 13:38 Last MAR Pain Assessment 12/14/23 09:08 Last ORT Total Score 3 12/13/23 17:02 Last ORT Risk Category Low Risk 12/13/23 17:02 Review of Systems ROS Status of ROS 10 or more systems reviewed and unremark able except as noted in history and below [facility] Medical History (Updated 12/14/23 @ 09:59 by Shaikh Barrington MD) H/O: lung cancer ?Z85.118 - Personal history of other malignant neoplasm of bronchus and lung (ICD-10) History of lung cancer in adulthood ?Z85.118 - Personal history of other malignant neoplasm of bronchus and lung (ICD-10) Adult failure to thrive ?R62.7 - Adult failure to thrive (ICD-10) Acute hyponatremia ?E87.1 - Hypo-osmolality and hyponatremia (ICD-10) Acute exacerbation of chronic obstructive pulmonary disease (COPD) ?J44.1 - Chronic obstructive pulmonary disease with (acute) exacerbation (ICD-10) Costochondritis ?M94.0 - Chondrocostal junction syndrome [Tietze] (ICD-10) Hyponatremia ?E87.1 - Hypo-osmolality and hyponatremia (ICD-10) Partial small bowel obstruction ?K56.600 - Partial intestinal obstruction, unspecified as to cause (ICD-10) Insomnia ?G47.00 - Insomnia, unspecified (ICD-10) Hypothyroidism ?E03.9 - Hypothyroidism, unspecified (ICD-10) Lung cancer ?C34.90 - Malignant neoplasm of unspecified part of unspecified bronchus or lung (ICD-10) Hypertension ?I10 - Essential (primary) hypertension (ICD-10) Surgical History History of hand surgery ?Z98.890 - Other specified postprocedural states (ICD-10) History of colonoscopy ?Z98.890 - Other specified postprocedural states (ICD-10) H/O vasectomy ?Z98.52 - Vasectomy status (ICD-10) Family History Father Family history of cancer Family history of COPD (chronic obstructive pulmonary disease) Mother Family history of diabetes mellitus Family history of COPD (chronic obstructive pulmonary disease) Brother Family history of diabetes mellitus Sister Family history of diabetes mellitus Social History (Updated 12/13/23 @ 17:47 by Brook Becker RN) Within the past year, how often did you have a drink containing alcohol: 4 or more times a week Within the past year, how many standard drinks containing alcohol did you have on a typical day: 1 or 2 Within the past year, how often did you have six or more drinks on one occasion: less than monthly Total score: 1 Score interpretation: A score of 4 or more indicates drinking is likely to affect patient's safety. Smoking status: Former smoker Non-prescribed substance use: cannabis (any form) Highest level of school completed/degree received: some college, no degree Are you now , , , , never or living with a partner: In a typical week, how many times do you talk on the telephone with family, friends, or neighbors: never How often do you get together with friends or relatives: never Meds Home Medications and Allergies Home Medications ?Medication ?Instructions ?Recorded ?Confirmed ?Type aspirin 81 mg tablet,delayed 81 mg PO QDAY 01/02/23 12/13/23 History release folic acid 1 mg tablet 1 mg PO QDAY 01/02/23 12/13/23 History cyanocobalamin (vitamin B-12) 1,000 mcg PO .QD 11/06/23 12/13/23 History 1,000 mcg tablet (Vitamin B-12) fluticasone 250 mcg-salmeterol 50 1 inh inhalation Q12H 11/06/23 12/13/23 Histo ry mcg/dose blistr powdr for inhalation melatonin 3 mg tablet 3 mg PO .QHS PRN sleep 11/06/23 12/13/23 History quetiapine 100 mg tablet See Rx Instructions PO DAILY 11/26/23 12/13/23 History furosemide 40 mg tablet 40 mg PO DAILY 12/13/23 12/13/23 History levothyroxine 100 mcg tablet 100 mcg PO .ACB 12/13/23 12/13/23 History potassium chloride 10 mEq 10 meq PO DAILY 12/13/23 12/13/23 History tablet,extended release(part/cryst) (Klor-Con M) Allergies Allergy/AdvReac Type Severity Reaction Status Date / Time chlordiazepoxide Allergy facial Verified 11/16/23 14:39 [From Librium] swelling lisinopril Allergy Hypotension Verified 11/16/23 14:38 sertraline Allergy low energy Verified 11/16/23 14:39 Exam Constitutional Vital Signs, click to edit/add: Last Vital Signs Temp 97.4 F L 12/14/23 06:11 Pulse 126 H 12/14/23 07:52 Resp 17 12/14/23 08:00 BP 126/75 12/14/23 06:11 Pulse Ox 91 L 12/14/23 06:11 O2 Del Method Nasal Cannula 12/14/23 06:11 O2 Flow Rate 2 12/14/23 06:11 Documenting provider has reviewed patient's vital signs: yes Common normals: no apparent distress and oriented x3 General appearance: cooperative and comfortable Nutritional appearance: overweight HENMT Common normals: normocephalic and head/scalp atraumatic Head and scalp: normocephalic and atraumatic Eye Common normals: conjunctivae normal and no scleral icterus Conjunctiva: conjunctiva(e) normal Respiratory Common normals: normal respiratory effort and clear to auscultation bilaterally Effort & inspection: able to speak in complete sentences Auscultation: clear to auscultation bilaterally Cardio Common normals: S1 normal heart sound and S2 normal heart sound Rate: tachycardic Heart sounds: S1 normal and S2 normal GI Common normals: Normal to inspection, nondistended, normoactive bowel sounds present and soft to palpation Palpation: tender (right CVA tenderness and RLQ tenderness) Bladder/kidney exam: CVA tenderness on the right Extremity Common normals: no clubbing, cyanosis or edema Neuro Common normals: oriented x3, moves all extremities and no focal motor deficits Psych Common normals: mental status grossly normal, denies hallucinations, denies homicidal ideation and denies suicidal ideation Results Labs Labs: Short CBC 12/13/23 12/14/23 Range/Units 11:53 05:45 WBC 19.4 H 9.8 (4.0-11.0) 10^3/uL Hgb 14.4 11.4 L (14.0-18.0) g/dL Hct 38.7 L 31.3 L (42.0-54.0) % Plt Count 104 L 73 L (150-450) 10^3/uL BMP 12/13/23 12/13/23 12/13/23 11:53 16:58 21:07 Sodium 123 L* 124 L* 124 L* Potassium 4.4 4.5 4.2 Chloride 88 L 91 L 93 L Carbon Dioxide 18.5 L 20.8 L 20.0 L BUN 18.0 21.0 H 25.0 H Creatinine 2.24 H 2.38 H 2.36 H Glucose 109 H 95 161 H Calcium 9.2 8.5 7.9 L 12/14/23 05:45 Sodium 126 L Potassium 4.5 Chloride 96 L Carbon Dioxide 18.3 L BUN 28.0 H Creatinine 2.72 H Glucose 101 Calcium 8.0 L Liver Function 12/14/23 Range/Units 05:45 Total Bilirubin 0.9 (0.2-1.0) mg/dL AST 16 (15-37) U/L ALT 21 (16-63) U/L Alkaline Phosphatase 101 (46-116) U/L Albumin 2.2 L (3.4-5.0) g/dL Assessment and Plan Assessment and Plan (1) Sepsis: Assessment and Plan: Presented with leukocytosis, tachycardia and tachypnea with source of infection likely UTI. Meets SIRS Criteria for sepsis (WBC 18, HR 120, 28) Patient also has acute kidney injury with creatinine actually worse from up admission. He is a still quite tachycardic and has minimal urine output. I will give him a 1 L bolus and then increase his normal saline 125 /h. Continue with IV Rocephin. Follow-up blood and urine cultures. Qualifiers: Sepsis type: Escherichia coli Sepsis acute organ dysfunction status: with acute organ dysfunction Severe sepsis acute organ dysfunction type: acute renal failure Acute renal failure type: with acute tubular necrosis Severe sepsis shock status: without septic shock Qualified Code(s): A41.51 - Sepsis d ue to Escherichia coli [E. coli]; R65.20 - Severe sepsis without septic shock; N17.0 - Acute kidney failure with tubular necrosis (2) Pyelonephritis due to Escherichia coli: Assessment and Plan: On IV Rocephin. Follow-up blood and urine cultures. (3) E coli bacteremia: Assessment and Plan: Initial blood cultures positive for E. coli. Awaiting final sensitivities. Continue with IV Rocephin. Will repeat blood cultures in 48 hours (4) Acute hyponatremia: Assessment and Plan: Likely hypovolemic hyponatremia. Mild improvement with IV hydration. Will give 1 L IV saline bolus. Increase IV fluid to 125 an hour. Repeat serum sodium at 2 PM. (5) YANG (acute kidney injury): Assessment and Plan: Patient has normal renal function at baseline. He presented with creatinine of 2.7. Continue with IV fluids. Monitor renal output, serum creatinine closely. (6) Acute tubular necrosis: Assessment and Plan: Patient has oliguric acute tubular necrosis with minimal urine output overnight. Will give 1 L IV fluid bolus. Increase IV fluid. Monitor urine output closely (7) Oligouria: Assessment and Plan: Because of acute tubular necrosis. Monitor renal function close (8) Lactic acid acidosis: Assessment and Plan: Due to sepsis/hypovolemia. Improved with IV hydration (9) H/O: lung cancer: Assessment and Plan: In remission for 5 years. (10) Hypothyroidism: Assessment and Plan: Continue with levothyroxine Qualifiers: Hypothyroidism type: unspecified Qualified Code(s): E03.9 - Hypothyroidism, unspecified
[2023-12-14] MEDS: 0.9 % SODIUM CHLORIDE 1,000 ML 1000 ML IV (10:44)
[2023-12-14] MEDS: BUDESONIDE 0.5 MG/2 ML AMPULE NEB IH ×2 (11:22→20:11)
[2023-12-14] MEDS: 0.9 % SODIUM CHLORIDE 1,000 ML 125 ML IV ×2 (11:43→18:27)
--- NOTE | 2023-12-14 13:33 | SWNOTE1 ---
SW met with pt to discuss dc needs. Pt was tearful during conversation. He voiced he was doing alright at home, but declined recently and has not been eating and not able to void. He stated he is just done feeling like this. SW did ask pt if he has any thoughts of taking his life. Pt stated no he doesn't mean that at all. Pt then spoke about his 2 daughters that he does not speak to and they live in [facility]. He voiced he was at peace with this. Pt did ask about going to rehab. SW reminded pt that SW had him set to go last time, but once he arrived to facility he left. Pt voiced he had to take care of things last time and he did not bring clothes. SW asked if he had clothes this time? Pt stated no but he can use some at facility. SW advised pt that we can try to get him somewhere and it will depend on his insurance and how he does with therapy. At this time pt has no preference. SHAUNA provided list from medicare.gov star ratings. SW let him know that [facility] is full. He would like SW to try [facility]. SHAUNA messaged the doctor for PT/OT orders. SHAUNA reached out to Amisha at [facility] and they are full until 12/20. SHAUNA reached out to Arun at [facility] to confirm they are full, waiting to hear back. Pt is a precert to go skilled.
--- NOTE | 2023-12-14 13:37 | SWNOTE1 ---
[facility] is full as well. SW to speak with pt.
[2023-12-14 14:16] LABS: BUN Creatinine Ratio 11.7; Calcium 7.4 mg/dL (8.5-10.1); Carbon Dioxide 20.5 mmol/L (21.0-32.0); Chloride 92 mmol/L (98-107); Estimated GFR (African America 29 (>=60); Estimated GFR (Non-African Ame 24 (>=60); Glucose 100 mg/dL (74-106); Potassium 4.5 mmol/L (3.5-5.1)
[2023-12-14 14:22] LABS: Sodium 121 mmol/L (136-145)
--- NOTE | 2023-12-14 14:36 | SWNOTE1 ---
SW stopped back in to speak with pt about facilities. SW let him know that [facility] and [facility] have no openings. SW reviewed medicare.gov star rating list with pt. Pt wanted to go to next closest facility, which is [facility] in [place]. Pt in agreement to go. Pt did ask about getting back to his care after rehab. SW expressed he will stay at rehab facility until insurance cuts him, unless he decides to sign out AMA. Pt understands, but wants to know about a ride back to car. SW expressed to him that he may have to pay for a ride back to car once he is dc from facility. SW expressed that not many facilities have transport for pt's going back to home. SW did let him know that the SW at the [facility] will assist with transport once he is close to discharging. Pt in agreement to still go skilled at this time. SW to reach out to Nataliya at [facility].
--- NOTE | 2023-12-14 14:49 | SWNOTE1 ---
SW spoke with Nataliya at [facility] and they do have openings and they will review referral.
--- NOTE | 2023-12-14 14:49 | SWNOTE1 ---
Referral sent to [facility]. Referral included face sheet, ED note, H&P, provider notes, case management report,nursing notes, diagnostic imaging, and med list. PT/OT going in room after SW had left. SW to send PT/OT notes once documented.
[2023-12-14] MEDS: CEFTRIAXONE 1,000 MG in 0.9 % SODIUM CHLORIDE 50 ML 100 MG IV (15:37)
[2023-12-14] MEDS: LIDOCAINE 2% JELLY 10 ML UR (15:38)
--- NOTE | 2023-12-14 15:59 | SWNOTE1 ---
PT/OT notes sent to Nataliya at [facility]. SW received message from [facility] and they can accept and precert will be started. SW updated nurse and doctor.
[2023-12-14 16:32] LABS: Bilirubin Urine SMALL (NEGATIVE); Blood Urine LARGE (NEGATIVE); Clarity Urine SL CLOUDY (CLEAR); Color Urine YELLOW (YELLOW); Glucose Urine UA NEGATIVE (NEGATIVE); Ketones Urine NEGATIVE (NEGATIVE); Leukocyte Esterase Urine MODERATE (NEGATIVE); Nitrite Urine NEGATIVE (NEGATIVE); Protein Urine >=300 mg/dL (NEG/TRACE)
[2023-12-14 16:33] LABS: Urine Microscopic Indicated YES
[2023-12-14 16:36] LABS: Creatinine Urine Random 175.79 mg/dL (20.00-300.00); Sodium Urine Random 16 mmol/L (30-90)
[2023-12-14 16:41] LABS: Bacteria Urine MODERATE #/HPF (NONE SEEN); Crystals Seen? None Seen #/HPF (None Seen); Mucus Urine NONE SEEN (NONE SEEN); RBC Urine 20-50 #/HPF (0-2); Squamous Epithelial Cell Urine RARE #/LPF (NONE/RARE)
[2023-12-14 16:42] LABS: Cast Seen? SEEN #/LPF (NONE SEEN); Transitional Epi Cells Urine FEW #/LPF (NONE SEEN)
[2023-12-14 16:43] LABS: Hyaline Casts Urine RARE; Urine Culture Indicated YES
--- NOTE | 2023-12-14 17:30 | DIETREC ---
Recommend 237 mL Ensure Original BID and 30 mL PRO-stat BID. Encourage acceptance.
[2023-12-14] MEDS: QUETIAPINE FUMARATE 100 MG TABLET 200 MG PO (21:04)
[2023-12-14 21:49] LABS: BUN Creatinine Ratio 12.8; Calcium 7.6 mg/dL (8.5-10.1); Carbon Dioxide 19.2 mmol/L (21.0-32.0); Chloride 91 mmol/L (98-107); Estimated GFR (African America 30 (>=60); Estimated GFR (Non-African Ame 25 (>=60); Glucose 127 mg/dL (74-106); Potassium 4.2 mmol/L (3.5-5.1)
[2023-12-14 21:58] LABS: Sodium 120 mmol/L (136-145)
[2023-12-14] MEDS: METOPROLOL TARTRATE 5 MG/5 ML VIAL 2.5 MG IVP (23:58)
[2023-12-15] VITALS (23 sets, daily range): BP systolic 113–162; BP diastolic 75–85; PULSE 109–134; TEMP 36.6–38.1; O2SAT 88–95
[2023-12-15] MEDS: OXYCODONE HCL 5 MG TABLET PO ×3 (02:13→21:32)
[2023-12-15] MEDS: 0.9 % SODIUM CHLORIDE 1,000 ML 125 ML IV ×3 (02:15→19:24)
[2023-12-15] MEDS: ALBUTEROL SULFATE 2.5 MG/3 ML VIAL NEB IH ×2 (04:00→10:45)
[2023-12-15] MEDS: METOPROLOL TARTRATE 5 MG/5 ML VIAL 2.5 MG IVP (05:28)
[2023-12-15] MEDS: LEVOTHYROXINE SODIUM 100 MCG TABLET PO (05:29)
[2023-12-15] MEDS: HEPARIN SODIUM (PORCINE) 5,000 UNIT/ML VIAL 5000 UNIT SUBQ ×3 (05:29→21:32)
[2023-12-15 06:08] LABS: Basophils Percent Auto 0.4 % (0.2-2.0); Eosinophils Absolute Auto 0.3 10^3/uL (0.0-0.7); Eosinophils Percent Auto 2.8 % (0.9-7.0); Hematocrit 27.3 % (42.0-54.0); Hemoglobin 10.1 g/dL (14.0-18.0); Immature Granulocytes Abs Auto 0.24 10^3/uL (0.00-0.03); Immature Granulocytes Pct Auto 2.7 % (0.0-0.5); Lymphocytes Absolute Auto 0.3 10^3/uL (1.2-3.8); Lymphocytes Percent Auto 2.8 % (20.5-60.0); Mean Corpuscular Hemoglobin 31.7 pg (25.9-34.0); Mean Corpuscular Volume 85.6 fL (80.0-94.0); Mean Platelet Volume 11.2 fL (9.5-13.5); Monocytes Percent Auto 11.2 % (1.7-12.0); Neutrophils Absolute Auto 7.2 10^3/uL (1.4-6.5); Neutrophils Percent Auto 80.1 % (43.0-75.0); Platelet Count 69 10^3/uL (150-450); Red Blood Count 3.19 10^6/uL (4.70-6.10); Red Cell Distribution Width 14.2 % (11.0-15.0)
[2023-12-15 06:26] LABS: Alanine Aminotransferase 17 U/L (16-63); Albumin Globulin Ratio 0.6; Albumin Level 1.9 g/dL (3.4-5.0); Alkaline Phosphatase 117 U/L (46-116); Anion Gap 16.2; Aspartate Amino Transferase 14 U/L (15-37); BUN Creatinine Ratio 12.8; Calcium 7.6 mg/dL (8.5-10.1); Carbon Dioxide 17.2 mmol/L (21.0-32.0); Chloride 93 mmol/L (98-107); Estimated GFR (African America 31 (>=60); Estimated GFR (Non-African Ame 26 (>=60); Globulin 3.1 g/dL; Glucose 79 mg/dL (74-106); Potassium 4.4 mmol/L (3.5-5.1)
[2023-12-15 06:39] LABS: Sodium 122 mmol/L (136-145)
[2023-12-15] MEDS: QUETIAPINE FUMARATE 100 MG TABLET PO (08:30)
[2023-12-15] MEDS: ASPIRIN 81 MG TABLET.DR PO (08:30)
[2023-12-15] MEDS: SODIUM CHLORIDE 1,000 MG TABLET 1000 MG PO ×3 (08:30→21:32)
[2023-12-15] MEDS: FOLIC ACID/VIT B6/VIT B12 TABLET 1 TAB PO (08:30)
[2023-12-15] MEDS: FOLIC ACID 1 MG TABLET PO (08:31)
[2023-12-15] MEDS: MORPHINE SULFATE 2 MG/ML SYRINGE IV (08:31)
--- NOTE | 2023-12-15 09:51 | PM.IMPN1 ---
Progress Note: A&P Assessment and Plan (1) Sepsis: Assessment and Plan: Improved hemodynamics. Sec to Ecoli. On Rocephin. F/u final C&S Qualifiers: Sepsis type: Escherichia coli Sepsis acute organ dysfunction status: with acute organ dysfunction Severe sepsis acute organ dysfunction type: acute renal failure Acute renal failure type: with acute tubular necrosis Severe sepsis shock status: without septic shock Qualified Code(s): A41.51 - Sepsis due to Escherichia coli [E. coli]; R65.20 - Severe sepsis without septic shock; N17.0 - Acute kidney failure with tubular necrosis (2) Pyelonephritis due to Escherichia coli: Assessment and Plan: On rocephin. F/u final C&S (3) E coli bacteremia: Assessment and Plan: Repeat blood cultures ordered 12/15/23 Awaiting C&S from initial cultures. (4) Acute hyponatremia: Assessment and Plan: Persistent, no improvement. Started on fluid restriction 1500/day, added salt tablets Serum sodium recheck at 2 pm (5) YANG (acute kidney injury): Assessment and Plan: Mild improvement. UO has improved. C/w IVF. (6) Acute tubular necrosis: Assessment and Plan: c/w IVF. Monitor UO , serum creatinine. (7) Oligouria: Assessment and Plan: UO improved overnight. C/w IVF, monitor cr and UO (8) Lactic acid acidosis: Assessment and Plan: Resolved. (9) H/O: lung cancer: Assessment and Plan: In remission (10) Hypothyroidism: Assessment and Plan: c/w levothyroxine Qualifiers: Hypothyroidism type: unspecified Qualified Code(s): E03.9 - Hypothyroidism, unspecified Plan C/w IVF. F/u cultures. Needs close monitoring of renal function. Internal Medicine - PN: Subj Subjective Interval history: Seen and examined. Doing better. Serum sodium is low. UO has picked up overnight. Still has considerable right sided flank pain. Feels weak and tired. Exam Constitutional Vital Signs, click to edit/add: Last Vital Signs Temp 98.2 F 12/15/23 08:04 Pulse 127 H 12/15/23 09:49 Resp 18 12/15/23 08:04 BP 144/85 H 12/15/23 08:04 Pulse Ox 92 L 12/15/23 09:49 O2 Del Method Nasal Cannula 12/15/23 08:04 O2 Flow Rate 3 12/15/23 08:04 Documenting provider has reviewed patient's vital signs: yes Common normals: no apparent distress and oriented x3 General appearance: cooperative and comfortable Nutritional appearance: overweight Respiratory Common normals: normal respiratory effort and clear to auscultation bilaterally Effort & inspection: able to speak in complete sentences Auscultation: clear to auscultation bilaterally Cardio Common normals: S1 normal heart sound and S2 normal heart sound Rate: tachycardic Heart sounds: S1 normal and S2 normal GI Common normals: Normal to inspection, nondistended, normoactive bowel sounds present and soft to palpation Palpation: tender (right CVA tenderness and RLQ tenderness) Bladder/kidney exam: CVA tenderness on the right Extremity Common normals: no clubbing, cyanosis or edema Neuro Common normals: oriented x3, moves all extremities and no focal motor deficits Psych Common normals: mental status grossly normal, denies hallucinations, denies homicidal ideation and denies suicidal ideation Internal Medicine - PN: Obj Da Labs Labs: Laboratory Results - last 24 hr 12/14/23 12/14/23 12/14/23 13:56 16:20 21:00 WBC RBC Hgb Hct MCV MCH MCHC RDW Plt Count MPV Neut % (Auto) Lymph % (Auto) [place] % (Auto) Eos % (Auto) Baso % (Auto) Neut # (Auto) Lymph # (Auto) [place] # (Auto) Eos # (Auto) Baso # (Auto) Abs Immat Gran (auto) Imm/Tot Granulo (auto) Sodium 121 L* 120 L* Potassium 4.5 4.2 Chloride 92 L 91 L Carbon Dioxide 20.5 L 19.2 L Anion Gap 13.0 14.0 BUN 32.0 H 34.0 H Creatinine 2.74 H 2.66 H Est GFR ( Amer) 29 L 30 L Est GFR (Non-Af Amer) 24 L 25 L BUN/Creatinine Ratio 11.7 12.8 Glucose 100 127 H Calcium 7.4 L 7.6 L Total Bilirubin AST ALT Alkaline Phosphatase Total Protein Albumin Globulin Albumin/Globulin Ratio Urine Color Yellow Urine Clarity Sl cloudy Urine pH 6.0 Ur Specific [place] 1.020 Urine Protein >=300 A Urine Glucose (UA) Negative Urine Ketones Negative Urine Occult Blood Large A Urine Nitrite Negative Urine Bilirubin Small A Urine Urobilinogen 1.0 Ur Leukocyte Esterase Moderate A Urine RBC 20-50 A Urine WBC 10-20 A Ur Squamous Epith Cells Rare Ur Transition Epith Cell Few A Urine Crystals None seen Urine Bacteria Moderate A Urine Casts Seen A Hyaline Casts Rare Urine Mucus None seen Ur Culture Indicated? Yes Ur Random Creatinine 175.79 Ur Random Sodium 16 L 12/15/23 05:40 WBC 9.0 RBC 3.19 L Hgb 10.1 L Hct 27.3 L MCV 85.6 MCH 31.7 MCHC 37.0 H RDW 14.2 Plt Count 69 L MPV 11.2 Neut % (Auto) 80.1 H Lymph % (Auto) 2.8 L [place] % (Auto) 11.2 Eos % (Auto) 2.8 Baso % (Auto) 0.4 Neut # (Auto) 7.2 H Lymph # (Auto) 0.3 L [place] # (Auto) 1.0 H Eos # (Auto) 0.3 Baso # (Auto) 0.0 Abs Immat Gran (auto) 0.24 H Imm/Tot Granulo (auto) 2.7 H Sodium 122 L* Potassium 4.4 Chloride 93 L Carbon Dioxide 17.2 L Anion Gap 16.2 BUN 33.0 H Creatinine 2.58 H Est GFR ( Amer) 31 L Est GFR (Non-Af Amer) 26 L BUN/Creatinine Ratio 12.8 Glucose 79 Calcium 7.6 L Total Bilirubin 1.0 AST 14 L ALT 17 Alkaline Phosphatase 117 H Total Protein 5.0 L Albumin 1.9 L Globulin 3.1 Albumin/Globulin Ratio 0.6 Urine Color Urine Clarity Urine pH Ur Specific [place] Urine Protein Urine Glucose (UA) Urine Ketones Urine Occult Blood Urine Nitrite Urine Bilirubin Urine Urobilinogen Ur Leukocyte Esterase Urine RBC Urine WBC Ur Squamous Epith Cells Ur Transition Epith Cell Urine Crystals Urine Bacteria Urine Casts Hyaline Casts Urine Mucus Ur Culture Indicated? Ur Random Creatinine Ur Random Sodium Urinary Catheter Management Urinary Catheter Management Urethral: Cath placed during this visit: yes Urethral indwelling: Yes Reason for continuing: measure accurate output Insertion date: 12/14/23 Insertion time: 16:16
[2023-12-15] MEDS: BUDESONIDE 0.5 MG/2 ML AMPULE NEB IH (10:45)
--- NOTE | 2023-12-15 10:58 | PT.DAILY ---
Physical Therapy Daily Note PT Daily Note/Assess Start: 12/15/23 10:55 Freq: Status: Active Protocol: Document 12/15/23 10:20 SUELLEN (Rec: 12/15/23 10:58 SUELLEN [id number]) Physical Therapy Daily Note/Assessment Time In/Time Out Time In 10:20 Time Out 10:30 Subjective Subjective Patient pleasant, main complaint is discomfort from catheter and fatigue. Therapeutic Activity Time Therapeutic Activity Minutes (minutes) 10 Therapeutic Activity Units 1 Therapeutic Activity Treatment Bed Mobility Ability Modified Independent Chair Transfer Ability Standby Assistance Therapeutic Activity Comments Gait in room 50'x2 with SBQC CGA. Total Physical Therapy Time Total Therapy Minutes 10 Total Physical Therapy Units 1 Summary Daily Note Summary Gait distance limited due to fatigue this AM, no LOB noted. Patient in bed with all needs met post RX. Recommend SNF at [place] due to fatigue and weakness as patient has 15 steps to enter apartment, and is showing decreased tolerance to community level gait distances as well.
[2023-12-15] MEDS: CEFTRIAXONE 1,000 MG in 0.9 % SODIUM CHLORIDE 50 ML 100 MG IV (14:09)
[2023-12-15 15:00] LABS: Anion Gap 13.2; BUN Creatinine Ratio 12.4; Calcium 7.6 mg/dL (8.5-10.1); Carbon Dioxide 18.2 mmol/L (21.0-32.0); Chloride 94 mmol/L (98-107); Estimated GFR (African America 31 (>=60); Estimated GFR (Non-African Ame 26 (>=60); Glucose 88 mg/dL (74-106); Potassium 4.4 mmol/L (3.5-5.1)
--- NOTE | 2023-12-15 16:07 | RESP.RT ---
Heart rate 130. Spoke with Dr. Ferris and scheduled txs will be discontinued
[2023-12-15 16:13] LABS: Sodium 121 mmol/L (136-145)
[2023-12-15] MEDS: ACETAMINOPHEN 325 MG TABLET 650 MG PO (20:00)
[2023-12-15] MEDS: QUETIAPINE FUMARATE 100 MG TABLET 200 MG PO (21:32)
[2023-12-15] MEDS: METOPROLOL TARTRATE 5 MG/5 ML VIAL IVP (22:06)
[2023-12-16] VITALS (19 sets, daily range): BP systolic 119–134; BP diastolic 75–80; PULSE 106–139; TEMP 36.2–36.5; O2SAT 90–93
[2023-12-16] MEDS: 0.9 % SODIUM CHLORIDE 1,000 ML 125 ML IV (03:21)
[2023-12-16] MEDS: METOPROLOL TARTRATE 5 MG/5 ML VIAL IVP ×3 (04:57→19:57)
[2023-12-16] MEDS: HEPARIN SODIUM (PORCINE) 5,000 UNIT/ML VIAL 5000 UNIT SUBQ ×3 (05:00→21:26)
[2023-12-16] MEDS: LEVOTHYROXINE SODIUM 100 MCG TABLET PO (05:00)
[2023-12-16] MEDS: SODIUM CHLORIDE 1,000 MG TABLET 1000 MG PO (05:01)
--- NOTE | 2023-12-16 07:15 | ECG_ITS ---
The 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
[2023-12-16] MEDS: FOLIC ACID/VIT B6/VIT B12 TABLET 1 TAB PO (08:50)
[2023-12-16] MEDS: OXYCODONE HCL 5 MG TABLET PO ×2 (08:51→21:28)
[2023-12-16] MEDS: QUETIAPINE FUMARATE 100 MG TABLET PO (08:51)
[2023-12-16] MEDS: FOLIC ACID 1 MG TABLET PO (08:51)
[2023-12-16] MEDS: ASPIRIN 81 MG TABLET.DR PO (08:51)
[2023-12-16 09:14] LABS: Hematocrit 25.5 % (42.0-54.0); Hemoglobin 9.6 g/dL (14.0-18.0); Mean Corpuscular HGB Conc 37.6 g/dL (29.9-35.2); Mean Corpuscular Hemoglobin 32.4 pg (25.9-34.0); Mean Corpuscular Volume 86.1 fL (80.0-94.0); Mean Platelet Volume 10.5 fL (9.5-13.5); Platelet Count 61 10^3/uL (150-450); Red Blood Count 2.96 10^6/uL (4.70-6.10); Red Cell Distribution Width 14.9 % (11.0-15.0); White Blood Count 7.6 10^3/uL (4.0-11.0)
[2023-12-16 09:38] LABS: Alanine Aminotransferase 15 U/L (16-63); Albumin Globulin Ratio 0.6; Albumin Level 1.9 g/dL (3.4-5.0); Alkaline Phosphatase 149 U/L (46-116); Anion Gap 17.9; Aspartate Amino Transferase 17 U/L (15-37); BUN Creatinine Ratio 12.6; Bilirubin Total 1.1 mg/dL (0.2-1.0); Calcium 8.2 mg/dL (8.5-10.1); Carbon Dioxide 15.4 mmol/L (21.0-32.0); Chloride 97 mmol/L (98-107); Estimated GFR (African America 30 (>=60); Estimated GFR (Non-African Ame 24 (>=60); Globulin 3.2 g/dL; Glucose 61 mg/dL (74-106); Potassium 4.3 mmol/L (3.5-5.1); Sodium 126 mmol/L (136-145); Total Protein 5.1 g/dL (6.4-8.2)
--- NOTE | 2023-12-16 09:46 | XR_ITS ---
The [address] [address] Patient Name: TONI GERBER MRN: [id number] date: 1965 Sex: M Assigned Patient Location: [place] Current Patient Location: Accession/Order Number: [id number] Exam Date: 12/16/2023 10:30 Report Date: 12/16/2023 11:23 At the request of: SHAIKH DEZ Procedure: XR chest 1V PROCEDURE: XR chest 1V DATE: 12/16/2023 9:30 AM CDT COMPARISONS: 11/26/2023 CLINICAL INDICATION: 58 years Male SOB FINDINGS: The cardiomediastinal silhouette and pulmonary vasculature are within normal limits. Left lung field is clear. No left pleural effusion. Right lung field shows slight increased markings mid and lower lung field. It appears there is a small amount of right pleural fluid or pleural thickening. These findings are stable from previous chest radiograph. There is no evidence of pneumothorax. Left-sided port catheter is in stable position. XR/XR chest 1V IMPRESSION: Stable chest. Electronically authenticated by: OLIVIER BOBBY Date: 12/16/2023 11:23
[2023-12-16] MEDS: 0.9 % SODIUM CHLORIDE 1,000 ML 1000 ML IV (10:00)
[2023-12-16 10:03] LABS: Thyroid Stimulating Hormone 0.902 uIU/mL (0.358-3.740)
[2023-12-16 10:30] LABS: Lymphocytes Absolute Manual 0.83 10^3/uL (1.20-3.80); Monocytes Absolute Manual 0.91 10^3/uL (0.30-0.80); Segmented Neut Absolute Manual 5.85 10^3/uL (1.4-6.5)
--- NOTE | 2023-12-16 11:38 | PM.IMPN1 ---
Progress Note: A&P Assessment and Plan (1) Sepsis: Assessment and Plan: Sec to Ecoli. On Rocephin. F/u final C&S Qualifiers: Acute renal failure type: with acute tubular necrosis Sepsis acute organ dysfunction status: with acute organ dysfunction Sepsis type: Escherichia coli Severe sepsis acute organ dysfunction type: acute renal failure Severe sepsis shock status: without septic shock Qualified Code(s): A41.51 - Sepsis due to Escherichia coli [E. coli]; R65.20 - Severe sepsis without septic shock; N17.0 - Acute kidney failure with tubular necrosis (2) Pyelonephritis due to Escherichia coli: Assessment and Plan: On rocephin. F/u final C&S (3) E coli bacteremia: Assessment and Plan: Repeat blood cultures ordered 12/15/23 Awaiting C&S from initial cultures. (4) Acute hyponatremia: Assessment and Plan: Mild improvement. Increase salt tablets to 2 g 3 times daily. Continue with fluid restriction (5) YANG (acute kidney injury): Assessment and Plan: At this point, I do not believe he needs IV fluids as he has received adequate volume resuscitation. We need to monitor serum creatinine closely. He may develop residual renal improvement from acute kidney injury. (6) Acute tubular necrosis: Assessment and Plan: Monitor UO , serum creatinine. (7) Oligouria: Assessment and Plan: monitor cr and UO (8) Lactic acid acidosis: Assessment and Plan: Resolved. (9) H/O: lung cancer: Assessment and Plan: In remission (10) Hypothyroidism: Assessment and Plan: c/w levothyroxine. TSH at goal Qualifiers: Hypothyroidism type: unspecified Qualified Code(s): E03.9 - Hypothyroidism, unspecified (11) Chronic respiratory failure with hypoxia: Assessment and Plan: On 2 to 3 L of oxygen. No respiratory symptoms. Likely because of prior history of lung cancer and COPD Internal Medicine - PN: Subj Subjective Interval history: Seen and examined. No overnight events. Serum sodium is improving. Tolerating oral diet. Feeling generalized weakness patient. Patient is requiring 2 to 3 L oxygen via nasal cannula at rest and according to him he was told that he needs oxygen at home but does not have home oxygen set up for him Exam Constitutional Vital Signs, click to edit/add: Last Vital Signs Temp 97.5 F L 12/16/23 03:51 Pulse 115 H 12/16/23 10:00 Resp 18 12/16/23 03:51 BP 134/80 12/16/23 03:51 Pulse Ox 90 L 12/16/23 03:51 O2 Del Method Nasal Cannula 12/16/23 03:51 O2 Flow Rate 3 12/16/23 03:51 Documenting provider has reviewed patient's vital signs: yes Common normals: no apparent distress and oriented x3 General appearance: cooperative and comfortable Nutritional appearance: overweight Respiratory Common normals: normal respiratory effort and clear to auscultation bilaterally Effort & inspection: able to speak in complete sentences Auscultation: clear to auscultation bilaterally Cardio Common normals: S1 normal heart sound and S2 normal heart sound Rate: tachycardic Heart sounds: S1 normal and S2 normal GI Common normals: Normal to inspection, nondistended, normoactive bowel sounds present and soft to palpation Palpation: tender (right CVA tenderness and RLQ tenderness) Bladder/kidney exam: CVA tenderness on the right Extremity Common normals: no clubbing, cyanosis or edema Neuro Common normals: oriented x3, moves all extremities and no focal motor deficits Psych Common normals: mental status grossly normal, denies hallucinations, denies homicidal ideation and denies suicidal ideation Internal Medicine - PN: Obj Da Labs Labs: Laboratory Results - last 24 hr 12/15/23 12/16/23 14:03 09:00 WBC 7.6 RBC 2.96 L Hgb 9.6 L Hct 25.5 L MCV 86.1 MCH 32.4 MCHC 37.6 H RDW 14.9 Plt Count 61 L MPV 10.5 Seg Neuts % (Manual) 77.0 H Lymphocytes % (Manual) 11.0 L Monocytes % (Manual) 12.0 Eosinophils % (Manual) 0.0 L Basophils % (Manual) 0.0 L Neutrophils # (Manual) 5.85 Lymphocytes # (Manual) 0.83 L Monocytes # (Manual) 0.91 H Eosinophils # (Manual) 0.00 Basophils # (Manual) 0.00 Sodium 121 L* 126 L Potassium 4.4 4.3 Chloride 94 L 97 L Carbon Dioxide 18.2 L 15.4 L Anion Gap 13.2 17.9 BUN 32.0 H 34.0 H Creatinine 2.58 H 2.70 H Est GFR ( Amer) 31 L 30 L Est GFR (Non-Af Amer) 26 L 24 L BUN/Creatinine Ratio 12.4 12.6 Glucose 88 61 L Calcium 7.6 L 8.2 L Total Bilirubin 1.1 H AST 17 ALT 15 L Alkaline Phosphatase 149 H Total Protein 5.1 L Albumin 1.9 L Globulin 3.2 Albumin/Globulin Ratio 0.6 TSH 0.902 Urinary Catheter Management Urinary Catheter Management Urethral: Cath placed during this visit: yes Urethral indwelling: Yes Reason for continuing: measure accurate output Insertion date: 12/14/23 Insertion time: 16:16
[2023-12-16] MEDS: SODIUM CHLORIDE 1,000 MG TABLET 2000 MG PO ×2 (14:22→21:28)
[2023-12-16] MEDS: CEFTRIAXONE 1,000 MG in 0.9 % SODIUM CHLORIDE 50 ML 100 MG IV (14:22)
[2023-12-16] MEDS: FUROSEMIDE 40 MG/4 ML VIAL IVP (16:28)
--- NOTE | 2023-12-16 21:10 | PC.NURSE ---
Patient called out and said a person walked out of the room with his bill fold, it had been sitting on the table. RN found his pants that were sitting on a chair with the bill fold in the pocket. Patient stated, I am losing my mind . RN gave emotional support and asked if he would like it locked up with security, he denied. RN placed his pants, with the bill fold inside the front pocket of the pants in a blue bag with his hat and placed in the closet. He was okay with that solution. RN asked if there was anything else I could do for him and He vocalized how hot it was, there is noticeable sweat on his brow. Placed a small fan on his bed. A few ice chip given. Denies any other needs at this time.
[2023-12-16] MEDS: METOPROLOL TARTRATE 25 MG TABLET PO (21:26)
[2023-12-16] MEDS: QUETIAPINE FUMARATE 100 MG TABLET 200 MG PO (21:27)
--- NOTE | 2023-12-16 22:32 | PC.NURSE ---
After the patient accused the RN of taking his wallet I told him the safest place for it is in the safe. Hollie BAILON and Hollie Fernandez witnessed the wallet being locked up.
[2023-12-17] VITALS (16 sets, daily range): BP systolic 119–125; BP diastolic 73–81; PULSE 105–131; TEMP 36.4–36.6; O2SAT 92–96
[2023-12-17] MEDS: MORPHINE SULFATE 2 MG/ML SYRINGE IV (00:44)
[2023-12-17] MEDS: OXYCODONE HCL 5 MG TABLET PO ×2 (05:00→20:59)
[2023-12-17] MEDS: SODIUM CHLORIDE 1,000 MG TABLET 2000 MG PO (05:00)
[2023-12-17] MEDS: HEPARIN SODIUM (PORCINE) 5,000 UNIT/ML VIAL 5000 UNIT SUBQ ×3 (05:01→21:07)
[2023-12-17 05:49] LABS: Basophils Percent Auto 0.4 % (0.2-2.0); Eosinophils Absolute Auto 0.1 10^3/uL (0.0-0.7); Eosinophils Percent Auto 1.4 % (0.9-7.0); Hematocrit 27.4 % (42.0-54.0); Hemoglobin 9.8 g/dL (14.0-18.0); Immature Granulocytes Pct Auto 1.1 % (0.0-0.5); Lymphocytes Absolute Auto 0.3 10^3/uL (1.2-3.8); Lymphocytes Percent Auto 3.4 % (20.5-60.0); Mean Corpuscular HGB Conc 35.8 g/dL (29.9-35.2); Mean Corpuscular Hemoglobin 31.5 pg (25.9-34.0); Mean Corpuscular Volume 88.1 fL (80.0-94.0); Mean Platelet Volume 9.8 fL (9.5-13.5); Monocytes Absolute Auto 1.6 10^3/uL (0.3-0.8); Monocytes Percent Auto 16.8 % (1.7-12.0); Neutrophils Absolute Auto 7.2 10^3/uL (1.4-6.5); Neutrophils Percent Auto 76.9 % (43.0-75.0); Platelet Count 61 10^3/uL (150-450); Red Blood Count 3.11 10^6/uL (4.70-6.10); Red Cell Distribution Width 15.8 % (11.0-15.0); White Blood Count 9.4 10^3/uL (4.0-11.0)
[2023-12-17 05:57] LABS: Alanine Aminotransferase 15 U/L (16-63); Albumin Globulin Ratio 0.6; Alkaline Phosphatase 194 U/L (46-116); Anion Gap 17.6; Aspartate Amino Transferase 19 U/L (15-37); BUN Creatinine Ratio 15.2; Calcium 8.4 mg/dL (8.5-10.1); Carbon Dioxide 14.4 mmol/L (21.0-32.0); Chloride 97 mmol/L (98-107); Estimated GFR (African America 30 (>=60); Estimated GFR (Non-African Ame 24 (>=60); Globulin 3.3 g/dL; Glucose 62 mg/dL (74-106); Sodium 125 mmol/L (136-145); Total Protein 5.3 g/dL (6.4-8.2)
[2023-12-17] MEDS: LEVOTHYROXINE SODIUM 100 MCG TABLET PO (06:11)
[2023-12-17 08:32] LABS: NT Pro B Type Natriuretic Pept >35000.0 pg/mL (<=900.0)
--- NOTE | 2023-12-17 09:08 | SWNOTE1 ---
SHAUNA sent over updates to Nataliya at [place]. SHAUNA will send PT/OT from today once completed. Nataliya did email SHAUNA and she is working on precert.
[2023-12-17] MEDS: METOPROLOL TARTRATE 25 MG TABLET PO ×2 (09:15→20:56)
[2023-12-17] MEDS: FUROSEMIDE 40 MG/4 ML VIAL IVP ×2 (09:15→21:07)
[2023-12-17] MEDS: FOLIC ACID 1 MG TABLET PO (09:15)
[2023-12-17] MEDS: ASPIRIN 81 MG TABLET.DR PO (09:15)
[2023-12-17] MEDS: QUETIAPINE FUMARATE 100 MG TABLET PO (09:15)
[2023-12-17] MEDS: FOLIC ACID/VIT B6/VIT B12 TABLET 1 TAB PO (09:15)
--- NOTE | 2023-12-17 09:20 | CM.NOTE ---
Rounds made with Dr. Ferris, PT and OT continue working with pt. No discharge today, when pt medically stable with discharge [facility].
--- NOTE | 2023-12-17 09:50 | P.IMPN_ITS ---
Progress Note: A&P Assessment and Plan (1) Sepsis: Assessment and Plan: Stable hemodynamics. On rocephin for E coli bacteremia, UTI. Qualifiers: Sepsis type: Escherichia coli Sepsis acute organ dysfunction status: with acute organ dysfunction Severe sepsis acute organ dysfunction type: acute renal failure Acute renal failure type: with acute tubular necrosis Severe sepsis shock status: without septic shock Qualified Code(s): A41.51 - Sepsis due to Escherichia coli [E. coli]; R65.20 - Severe sepsis without septic shock; N17.0 - Acute kidney failure with tubular necrosis (2) Pyelonephritis due to Escherichia coli: Assessment and Plan: On IV Rocephin. Follow-up final culture and sensitivity (3) E coli bacteremia: Assessment and Plan: Repeat blood cultures pending. Continue with IV Rocephin (4) Acute hyponatremia: Assessment and Plan: Serum sodium continues to be persistently low. Will increase salt tablets to 3 g 3 times daily. Continue with fluid restrictions at 1200 mL/day (5) Volume overload state of heart: Assessment and Plan: Likely because of oliguric ATN along with judicious IV hydration. Started on IV Lasix. Will get an echocardiogram to assess cardiac structure and rule out underlying congestive heart disease. (6) YANG (acute kidney injury): Assessment and Plan: Developed acute kidney injury from ATN and was initially oliguric. He received judicious IV hydration and became volume overload and had to be started on IV Lasix. His serum creatinine has not quite improved and will likely need some time. However I do not expect full recovery and he will likely develop residual chronic renal insufficiency (7) Acute tubular necrosis: Assessment and Plan: Started on IV Lasix because of volume overload. Monitor urine output and serum creatinine closely (8) Oligouria: Assessment and Plan: Started on IV Lasix. Urine output has picked up. (9) Lactic acid acidosis: Assessment and Plan: Resolved (10) H/O: lung cancer: Assessment and Plan: In remission. (11) Hypothyroidism: Assessment and Plan: TSH at goal. Continue with the liver Qualifiers: Hypothyroidism type: unspecified Qualified Code(s): E03.9 - Hypothyroidism, unspecified (12) Chronic respiratory failure with hypoxia: Assessment and Plan: From prior history of lung cancer. On 2 to 3 L oxygen via nasal cannula. Internal Medicine - PN: Subj Subjective Interval history: Seen and examined. Last evening, patient became acutely short of breath with diaphoresis and increased work of breathing. It was suspected to be from volume overload from judicious IV hydration for acute kidney injury. He was given 1 dose of IV Lasix with gradual improvement in his symptoms overnight. BNP from this morning is over 3500 and his physical exam is also consistent with volume overload for which I will start him on IV Lasix 40 twice daily. He reports feeling better overall from a respiratory point of view. He is worried about getting increasingly forgetful but this is not something new and ongoing for some time. Exam Constitutional Vital Signs, click to edit/add: Last Vital Signs Temp 97.7 F 12/17/23 05:12 Pulse 121 H 12/17/23 08:00 Resp 17 12/17/23 05:12 BP 125/81 12/17/23 05:12 Pulse Ox 93 L 12/17/23 05:12 O2 Del Method Nasal Cannula 12/17/23 05:12 O2 Flow Rate 2 12/17/23 05:12 Documenting provider has reviewed patient's vital signs: yes Common normals: no apparent distress and oriented x3 General appearance: cooperative and comfortable Nutritional appearance: overweight Respiratory Common normals: normal respiratory effort and no use of accessory muscles Effort & inspection: able to speak in complete sentences Auscultation: diminished lung sounds Cardio Common normals: S1 normal heart sound and S2 normal heart sound Rate: tachycardic Heart sounds: S1 normal and S2 normal GI Common normals: Normal to inspection, nondistended, normoactive bowel sounds present and soft to palpation Palpation: tender (right CVA tenderness and RLQ tenderness) Bladder/kidney exam: CVA tenderness on the right Extremity Common normals: no clubbing, cyanosis or edema Neuro Common normals: oriented x3, moves all extremities and no focal motor deficits Psych Common normals: mental status grossly normal, denies hallucinations, denies homicidal ideation and denies suicidal ideation Internal Medicine - PN: Obj Da Labs Labs: Laboratory Results - last 24 hr 12/16/23 12/17/23 09:00 05:35 WBC 7.6 9.4 RBC 2.96 L 3.11 L Hgb 9.6 L 9.8 L Hct 25.5 L 27.4 L MCV 86.1 88.1 MCH 32.4 31.5 MCHC 37.6 H 35.8 H RDW 14.9 15.8 H Plt Count 61 L 61 L MPV 10.5 9.8 Neut % (Auto) 76.9 H Lymph % (Auto) 3.4 L [place] % (Auto) 16.8 H Eos % (Auto) 1.4 Baso % (Auto) 0.4 Neut # (Auto) 7.2 H Lymph # (Auto) 0.3 L [place] # (Auto) 1.6 H Eos # (Auto) 0.1 Baso # (Auto) 0.0 Abs Immat Gran (auto) 0.10 H Seg Neuts % (Manual) 77.0 H Lymphocytes % (Manual) 11.0 L Monocytes % (Manual) 12.0 Eosinophils % (Manual) 0.0 L Basophils % (Manual) 0.0 L Imm/Tot Granulo (auto) 1.1 H Neutrophils # (Manual) 5.85 Lymphocytes # (Manual) 0.83 L Monocytes # (Manual) 0.91 H Eosinophils # (Manual) 0.00 Basophils # (Manual) 0.00 Sodium 125 L Potassium 4.0 Chloride 97 L Carbon Dioxide 14.4 L Anion Gap 17.6 BUN 41.0 H Creatinine 2.69 H Est GFR ( Amer) 30 L Est GFR (Non-Af Amer) 24 L BUN/Creatinine Ratio 15.2 Glucose 62 L Calcium 8.4 L Total Bilirubin 1.0 AST 19 ALT 15 L Alkaline Phosphatase 194 H NT-Pro-B Natriuret Pep >90986.0 H* Total Protein 5.3 L Albumin 2.0 L Globulin 3.3 Albumin/Globulin Ratio 0.6 TSH 0.902 Urinary Catheter Management Urinary Catheter Management Urethral: Cath placed during this visit: yes Urethral indwelling: Yes Reason for continuing: measure accurate output Insertion date: 12/14/23 Insertion time: 16:16
--- NOTE | 2023-12-17 09:52 | CA_ITS ---
Patient Name: TONI GERBER MR#: [id number] : 1965 Exam Date: 12/17/2023 Ordering Doctor: Shaikh Fracisco Ferris . ECHOCARDIOGRAM REPORT PROCEDURE: CA ECHO DOPPLER COMPLETE INDICATIONS: chf COMPARISON: None. DESCRIPTION: COMPLETE ECHOCARDIOGRAM Real-time transthoracic echocardiography with 2D, M-mode, spectral and color flow Doppler performed. QUALITY: Technical quality was good. LEFT VENTRICLE: Normal chamber size. Normal left ventricular wall thickness. Global left ventricular systolic function is normal. Abnormal septal motion consistent with right ventricular pressure/volume overload. LV EF: Estimated left ventricular ejection fraction is 60%. DIASTOLIC: ATRIAL SEPTUM: LEFT ATRIUM: Normal chamber size. RIGHT ATRIUM: Severe dilatation. RIGHT VENTRICLE: Moderate dilatation. Moderately reduced right ventricular systolic function. TRICUSPID VALVE: Normal mobility and thickness. No stenosis with moderate regurgitation. Mild pulmonary hypertension. RVSP 44 mmHg. MITRAL VALVE: Normal mobility and thickness. No evidence of mitral valve stenosis. There is no mitral annular calcification. Trivial mitral regurgitation. AORTIC VALVE: Normal trileaflet appearance. No visible sclerosis. Normal leaflet mobility. No evidence of aortic valve stenosis. No aortic regurgitation. AORTIC ROOT: Normal diameter and appearance. PULMONIC VALVE: Normal thickness and mobility. No stenosis. No regurgitation. PERICARDIUM: No evidence of pericardial effusion. IVC: Normal size with no collapse. PLEURA: CONCLUSION: 1. Normal left ventricular size and systolic function. LVEF is estimated at 60%. 2. Moderately dilated right ventricle with moderately reduced systolic function. 3. Severe right atrial dilatation. 4. Moderate tricuspid regurgitation. 5. Mildly elevated right-sided pressures, RVSP is 44 mmHg. 6. No pericardial effusion. Adult Echocardiography Procedure Report Left Ventricle LVEDD (3.7 - 5.6 cm): 3.82 cm LVESD (2.2 - 4.0 cm): 2.52 cm LVIVS thickness (0.6 - 1.2 cm): 0.93 cm LVPW thickness (0.5 - 1.0 cm): 0.89 cm e': 0.11 m/s E - e': 9.49 LVOT Max Gradient: 3.16 mm[Hg], 3.27 mm[Hg] LVOT Area (cm2): 0.90 m/s Peak Velocity (LVOT): 0.89 m/s, 0.90 m/s Mean Velocity (LVOT): 0.65 m/s LVOT Diameter 2.36 cm Left Ventricular Ejection Fraction: 60 % Left Atrium LA Volume Index (2D A2C): 23.25 ml/m2 Left Atrium Systolic Dimension: 2.89 cm Mitral Valve Mitral Valve E-Wave Peak Velocity: 1.04 m/s Right Ventricle RV Internal Diastolic Dimension: 4.28 cm Aorta AO Root Diam: 3.62 cm Aortic Valve AoV Area (Peak Jaskaran): 3.41 cm2, 3.33 cm2, 3.49 cm2 AoV Area (VTI): 3.31 cm2, 3.42 cm2, 3.21 cm2 Peak Velocity(Antegrade Flow): 1.16 m/s, 1.13 m/s Peak Gradient(Antegrade Flow): 5.42 mm[Hg], 5.09 mm[Hg] Mean Velocity(Antegrade Flow): 0.81 m/s, 0.86 m/s Mean Gradient(Antegrade Flow): 3.00 mm[Hg], 3.29 mm[Hg] Velocity Time Integral: 17.52 cm, 18.83 cm Tricuspid Valve Peak Velocity (Regurgitant Flow): 2.94 m/s, 2.97 m/s, 2.94 m/s, 2.77 m/s, 2.98 m/s Pulmonic Valve Mean Gradient: 1.82 mm[Hg], 1.66 mm[Hg], 1.87 mm[Hg], 1.73 mm[Hg] Mean Velocity: 0.61 m/s, 0.60 m/s, 0.65 m/s, 0.62 m/s Peak Velocity: 0.90 m/s Peak Gradient: 3.47 mm[Hg], 2.90 mm[Hg], 3.47 mm[Hg], 3.21 mm[Hg] Right Atrium Right Atrium Systolic Pressure: 123.91 ml, 123.91 ml Dictated by: Michael Mancuso M.D. on 12/17/2023 at 19:16 Approved by: Michael Mancuso M.D. on 12/17/2023 at 19:21
--- NOTE | 2023-12-17 10:20 | REH.PTDLY ---
Physical Therapy Daily Note PT Daily Note/Assess Start: 12/15/23 10:55 Freq: Status: Active Protocol: Document 12/17/23 10:11 KARIME (Rec: 12/17/23 10:19 KARIME [id number]) Physical Therapy Daily Note/Assessment Time In 09:33 Time Out 09:58 Subjective Pt up in chair upon arrival, willing to participate in therapy. Pt is unaware that today is Sunday. Therapeutic Activity Minutes (minutes) 23 Therapeutic Activity Units 2 Therapeutic Activity Comments Pt up in chair upon arrival. Assisted pt in donning shoes, pt is able to push foot in but needs help getting foot in initially. Sit to stand transfer CGA for safety, pt denies any feeling of dizziness. Pt wearing 2 L of O2. Stood in place for 2 mins while searching in bag for a hat, 1 hand on SC. Gait training with SBQC CGA 80 feet with pt taking 2 standing rest breaks and using HR along wall for extra support. When bringing up RW to use instead pt states no that he is fine with this. Pt does have an increase in SOB from exertion, but continues to state he feels fine. Cues when returning to room for pt to use B UEs to reach back for safety. SpO2 is at 67% when probe placed on R index finger . Pt takes deep breaths and rises to 96% after 2-3 mins. Pt does appear to be confused at times during rx with conversation, pt is aware that he is confused. Total Therapy Minutes 23 Total Physical Therapy Units 2 Daily Note Summary Pt slow with ambulation. Would recommend RW over SBQC for safety as pt needs cues and CGA due to unsteadiness at times. Pt's O2 sats do drop during rx, nursing is notified of this and nursing is questioning if probe was reading properly. Pt is confused at times during conversation and struggles to gather thoughts, pt reports he knows he is confused. Pt needs rehab at [place] as he has a flight of stairs to enter home and would not be able to complete those safely at this time due to O2 levels dropping /SOB and unsteadiness
--- NOTE | 2023-12-17 10:26 | SWNOTE1 ---
SHAUNA sent PT notes to Nataliya at [place].
--- NOTE | 2023-12-17 11:25 | SWNOTE1 ---
SHAUNA sent OT note to Nataliya at [place].
--- NOTE | 2023-12-17 13:56 | SWNOTE1 ---
SHAUNA completed HENS online. SW reached out to Nataliya and she is just waiting to hear back from insurance. SW notified Nataliya to reach out to med/surge floor if pt gets approved.
[2023-12-17] MEDS: 0.9 % SODIUM CHLORIDE 250 ML 10 ML IV (14:54)
[2023-12-17] MEDS: SODIUM CHLORIDE 1,000 MG TABLET 3000 MG PO ×2 (14:54→21:00)
[2023-12-17] MEDS: CEFTRIAXONE 1,000 MG in 0.9 % SODIUM CHLORIDE 50 ML 100 MG IV (14:54)
[2023-12-17 17:07] LABS: Anion Gap 18.8; BUN Creatinine Ratio 15.4; Calcium 8.4 mg/dL (8.5-10.1); Carbon Dioxide 14.9 mmol/L (21.0-32.0); Chloride 97 mmol/L (98-107); Estimated GFR (African America 29 (>=60); Estimated GFR (Non-African Ame 24 (>=60); Glucose 81 mg/dL (74-106); Potassium 3.7 mmol/L (3.5-5.1); Sodium 127 mmol/L (136-145)
[2023-12-17] MEDS: QUETIAPINE FUMARATE 100 MG TABLET 200 MG PO (21:00)
[2023-12-18] VITALS (21 sets, daily range): BP systolic 105–137; BP diastolic 67–86; PULSE 106–124; TEMP 36.3–36.7; O2SAT 91–95
[2023-12-18] MEDS: TRAZODONE HCL 50 MG TABLET PO (00:33)
[2023-12-18] MEDS: METOPROLOL TARTRATE 5 MG/5 ML VIAL IVP (02:46)
[2023-12-18] MEDS: OXYCODONE HCL 5 MG TABLET PO (02:46)
[2023-12-18 06:34] LABS: Basophils Percent Auto 0.3 % (0.2-2.0); Eosinophils Absolute Auto 0.2 10^3/uL (0.0-0.7); Hematocrit 24.8 % (42.0-54.0); Hemoglobin 9.3 g/dL (14.0-18.0); Immature Granulocytes Pct Auto 0.8 % (0.0-0.5); Lymphocytes Absolute Auto 0.5 10^3/uL (1.2-3.8); Lymphocytes Percent Auto 4.2 % (20.5-60.0); Mean Corpuscular HGB Conc 37.5 g/dL (29.9-35.2); Mean Corpuscular Hemoglobin 31.8 pg (25.9-34.0); Mean Corpuscular Volume 84.9 fL (80.0-94.0); Mean Platelet Volume 10.9 fL (9.5-13.5); Monocytes Absolute Auto 1.2 10^3/uL (0.3-0.8); Monocytes Percent Auto 10.3 % (1.7-12.0); Neutrophils Percent Auto 82.4 % (43.0-75.0); Platelet Count 65 10^3/uL (150-450); Red Blood Count 2.92 10^6/uL (4.70-6.10); Red Cell Distribution Width 15.2 % (11.0-15.0); White Blood Count 12.1 10^3/uL (4.0-11.0)
[2023-12-18] MEDS: LEVOTHYROXINE SODIUM 100 MCG TABLET PO (06:41)
[2023-12-18] MEDS: SODIUM CHLORIDE 1,000 MG TABLET 3000 MG PO ×2 (06:41→14:02)
[2023-12-18 06:47] LABS: Alanine Aminotransferase 22 U/L (16-63); Albumin Globulin Ratio 0.6; Albumin Level 1.9 g/dL (3.4-5.0); Alkaline Phosphatase 276 U/L (46-116); Anion Gap 22.2; Aspartate Amino Transferase 32 U/L (15-37); BUN Creatinine Ratio 16.3; Bilirubin Total 0.9 mg/dL (0.2-1.0); Calcium 8.2 mg/dL (8.5-10.1); Carbon Dioxide 12.6 mmol/L (21.0-32.0); Chloride 99 mmol/L (98-107); Estimated GFR (African America 31 (>=60); Estimated GFR (Non-African Ame 25 (>=60); Globulin 3.2 g/dL; Glucose 80 mg/dL (74-106); Potassium 3.8 mmol/L (3.5-5.1); Sodium 130 mmol/L (136-145); Total Protein 5.1 g/dL (6.4-8.2)
[2023-12-18] MEDS: FOLIC ACID 1 MG TABLET PO (08:25)
[2023-12-18] MEDS: METOPROLOL TARTRATE 25 MG TABLET PO (08:25)
[2023-12-18] MEDS: ASPIRIN 81 MG TABLET.DR PO (08:25)
[2023-12-18] MEDS: FOLIC ACID/VIT B6/VIT B12 TABLET 1 TAB PO (08:25)
[2023-12-18] MEDS: QUETIAPINE FUMARATE 100 MG TABLET PO (08:25)
[2023-12-18] MEDS: FUROSEMIDE 40 MG/4 ML VIAL IVP (10:14)
--- NOTE | 2023-12-18 10:23 | REH.PTDLY ---
Physical Therapy Daily Note PT Daily Note/Assess Start: 12/15/23 10:55 Freq: Status: Active Protocol: Document 12/18/23 10:20 KARIME (Rec: 12/18/23 10:23 KARIME [id number]) Visit Not Completed Visit Not Completed Due to: Pt level of alertness Other Reason Visit Not Completed Pt sleeping earlier this morning, woke pt and he reports he is just really tired. Feel like he was given something to sleep as he cannot stay awake today. Struggles to keep eyes open during conversation. Went back to check on patient later this morning, ARTHUR Colin in room and states she checked in his chart and he was given a sleeping pill at midnight, will have to skip this morning as pt is still asleep. Physical Therapy Daily Note/Assessment Time In 10:20 Time Out 10:22
--- NOTE | 2023-12-18 11:14 | P.IMPN_ITS ---
Progress Note: A&P Assessment and Plan (1) Sepsis: Assessment and Plan: Stable hemodynamics. On rocephin for E coli bacteremia, UTI. E. coli sensitive to Rocephin. Qualifiers: Sepsis type: Escherichia coli Sepsis acute organ dysfunction status: with acute organ dysfunction Severe sepsis acute organ dysfunction type: acute renal failure Acute renal failure type: with acute tubular necrosis Severe sepsis shock status: without septic shock Qualified Code(s): A41.51 - Sepsis due to Escherichia coli [E. coli]; R65.20 - Severe sepsis without septic shock; N17.0 - Acute kidney failure with tubular necrosis (2) Pyelonephritis due to Escherichia coli: Assessment and Plan: On IV Rocephin. E. coli sensitive to Rocephin. (3) E coli bacteremia: Assessment and Plan: Repeat blood cultures pending. Sensitive to Rocephin. (4) Acute hyponatremia: Assessment and Plan: Improving. Continue with salt tablets 3 g 3 times daily. Continue with fluid restrictions. Continue with IV Lasix. (5) Volume overload state of heart: Assessment and Plan: Likely because of oliguric ATN along with judicious IV hydration. Still evidence of volume overload on exam. Continue with IV Lasix 40 twice daily. Echocardiogram with no acute/significant structural abnormality of the heart except for evidence of volume overload (6) YANG (acute kidney injury): Assessment and Plan: Developed acute kidney injury from ATN and was initially oliguric. He received judicious IV hydration and became volume overload and had to be started on IV Lasix. His serum creatinine has not quite improved and will likely need some time to recover. He has good urine output with IV Lasix. (7) Acute tubular necrosis: Assessment and Plan: Good urine output with IV Lasix. Monitor serum creatinine closely. (8) Oligouria: Assessment and Plan: Good urine output with IV Lasix. Monitor renal function. (9) Lactic acid acidosis: Assessment and Plan: Resolved (10) H/O: lung cancer: Assessment and Plan: In remission. (11) Hypothyroidism: Assessment and Plan: TSH at goal. Continue with the liver Qualifiers: Hypothyroidism type: unspecified Qualified Code(s): E03.9 - Hypothyroidism, unspecified (12) Chronic respiratory failure with hypoxia: Assessment and Plan: From prior history of lung cancer. On 2 to 3 L oxygen via nasal cannula. (13) Delirium: Assessment and Plan: Patient was confused with hallucinations, noted by night RN. Patient is come back to his baseline mental status. He received oral trazodone to help him sleep at night and that may have affected his mentation. Monitor closely. Internal Medicine - PN: Subj Subjective Interval history: Seen and examined. Good urine output on IV Lasix. Patient was confused overnight with hallucination reported by RN. He is completely back to his baseline mental status and answering questions appropriately with no evidence of confusion. He received oral trazodone overnight which is new for him and that may have affected his mentation at night. He feels weak overall but denies any respiratory complaints and subjectively feeling better than before. Exam Constitutional Vital Signs, click to edit/add: Last Vital Signs Temp 98.0 F 12/18/23 08:30 Pulse 115 H 12/18/23 09:54 Resp 20 12/18/23 08:30 BP 137/86 12/18/23 08:30 Pulse Ox 92 L 12/18/23 08:30 O2 Del Method Room Air 12/18/23 08:30 O2 Flow Rate 2 12/18/23 04:56 Documenting provider has reviewed patient's vital signs: yes Common normals: no apparent distress and oriented x3 General appearance: cooperative and comfortable Nutritional appearance: overweight Respiratory Common normals: normal respiratory effort and no use of accessory muscles Effort & inspection: able to speak in complete sentences Auscultation: diminished lung sounds Cardio Common normals: S1 normal heart sound and S2 normal heart sound Rate: tachycardic Heart sounds: S1 normal and S2 normal GI Common normals: Normal to inspection, nondistended, normoactive bowel sounds present and soft to palpation Palpation: tender (right CVA tenderness and RLQ tenderness) Bladder/kidney exam: CVA tenderness on the right Extremity Common normals: no clubbing, cyanosis or edema Neuro Common normals: oriented x3, moves all extremities and no focal motor deficits Psych Common normals: mental status grossly normal, denies hallucinations, denies homicidal ideation and denies suicidal ideation Internal Medicine - PN: Obj Da Labs Labs: Laboratory Results - last 24 hr 12/17/23 12/18/23 16:28 05:52 WBC 12.1 H RBC 2.92 L Hgb 9.3 L Hct 24.8 L MCV 84.9 MCH 31.8 MCHC 37.5 H RDW 15.2 H Plt Count 65 L MPV 10.9 Neut % (Auto) 82.4 H Lymph % (Auto) 4.2 L [place] % (Auto) 10.3 Eos % (Auto) 2.0 Baso % (Auto) 0.3 Neut # (Auto) 10.0 H Lymph # (Auto) 0.5 L Pre[place] # (Auto) 1.2 H Eos # (Auto) 0.2 Baso # (Auto) 0.0 Abs Immat Gran (auto) 0.10 H Imm/Tot Granulo (auto) 0.8 H Sodium 127 L 130 L Potassium 3.7 3.8 Chloride 97 L 99 Carbon Dioxide 14.9 L 12.6 L Anion Gap 18.8 22.2 BUN 42.0 H 43.0 H Creatinine 2.73 H 2.63 H Est GFR ( Amer) 29 L 31 L Est GFR (Non-Af Amer) 24 L 25 L BUN/Creatinine Ratio 15.4 16.3 Glucose 81 80 Calcium 8.4 L 8.2 L Total Bilirubin 0.9 AST 32 ALT 22 Alkaline Phosphatase 276 H Total Protein 5.1 L Albumin 1.9 L Globulin 3.2 Albumin/Globulin Ratio 0.6 Urinary Catheter Management Urinary Catheter Management Urethral: Cath placed during this visit: yes Urethral indwelling: Yes Reason for continuing: measure accurate output Insertion date: 12/14/23 Insertion time: 16:16
--- NOTE | 2023-12-18 11:32 | CM.NOTE ---
Rounds made with Dr. Ferris, pt updated on labs and condition. No discharge for pt today. Pt will go to [facility] when medically stable for discharge.
--- NOTE | 2023-12-18 12:02 | SWNOTE1 ---
Pt did get approved last evening to go to [place], but he was not medically stable for discharge. Today pt is not stable for discharge either. SW to updated [place] and find out how long precert is good for. SHAUNA sent message to Nataliya at [place].
--- NOTE | 2023-12-18 12:55 | OT.DAILY ---
Occupational Therapy Daily Note OT Inpatient Daily Visit Note Start: 12/14/23 15:26 Freq: Status: Active Protocol: Document 12/18/23 12:47 [id number] (Rec: 12/18/23 12:55 [id number]) OT Visit Details Time In/Time Out Time In 12:34 Time Out 12:45 OT Treatment Plan Subjective Subjective I am not feeling good, I am feeling lost Objective Objective Pt sleeping upon arrival to room. Pt was pleasant when awake, reports he is feeling confused and lost . Denies the need for toileting or oral hygiene. Laying supine in bed set up with supplies, Pt able to wash face and UB. Completing task Pt reports he is feeling better. Pt often was rambling and not maintaining conversation with a normal thought process. Attempted to go back to sleep. Pt did not want to stand up, he is feeling anxious with too many nurses. Fall risk. Assessment Assessment Pt is obviously confused and fatigued. Pt left supine in bed, call light within reach, bed alarm in place. OT [employer] Timed Codes Self-Long Term Management minutes ( 11 minutes) Self-Long Term Management units 1
--- NOTE | 2023-12-18 12:59 | SWNOTE1 ---
SW sent updated progress notes, nursing notes about confusion overnight/hallucinating, vitals, diagnostic imaging, and PT note. Pt was too tired and had a sleeping pill around midnight so did not participate with therapy this morning.
--- NOTE | 2023-12-18 13:58 | SWNOTE1 ---
Camille sent email back and precert is good thru until at least tomorrow.
[2023-12-18] MEDS: CEFTRIAXONE 1,000 MG in 0.9 % SODIUM CHLORIDE 50 ML 100 MG IV (14:01)
[2023-12-18] MEDS: HEPARIN SODIUM (PORCINE) 5,000 UNIT/ML VIAL 5000 UNIT SUBQ (14:01)
--- NOTE | 2023-12-18 23:17 | PC.NURSE ---
Abida5- RN in room to assess patient. pt lethargic and woke to light touch. Pt confused as to where he was and why he was here. Pt able to answer his name and birthday, but when asked where he was he stated, my friends and I were out in the field and I don't know. Pt reoriented to the hospital and why he is here. Pt then proceeded to fall back asleep. Bed alarm was turned on at this time and patient resting in bed with call light in reach.
[2023-12-19] VITALS (20 sets, daily range): BP systolic 93–139; BP diastolic 59–88; PULSE 102–129; TEMP 35.7–37; O2SAT 90–97
[2023-12-19] MEDS: HEPARIN SODIUM (PORCINE) 5,000 UNIT/ML VIAL 5000 UNIT SUBQ ×3 (06:12→21:36)
[2023-12-19] MEDS: LEVOTHYROXINE SODIUM 100 MCG TABLET PO (06:12)
[2023-12-19] MEDS: SODIUM CHLORIDE 1,000 MG TABLET 3000 MG PO ×3 (06:12→21:37)
[2023-12-19 08:35] LABS: Alanine Aminotransferase 28 U/L (16-63); Albumin Globulin Ratio 0.5; Alkaline Phosphatase 312 U/L (46-116); Anion Gap 22.5; Aspartate Amino Transferase 49 U/L (15-37); BUN Creatinine Ratio 16.3; Bilirubin Total 1.2 mg/dL (0.2-1.0); Calcium 8.5 mg/dL (8.5-10.1); Carbon Dioxide 14.9 mmol/L (21.0-32.0); Chloride 99 mmol/L (98-107); Estimated GFR (African America 32 (>=60); Estimated GFR (Non-African Ame 26 (>=60); Globulin 3.8 g/dL; Glucose 71 mg/dL (74-106); Potassium 4.4 mmol/L (3.5-5.1); Sodium 132 mmol/L (136-145); Total Protein 5.8 g/dL (6.4-8.2)
[2023-12-19] MEDS: FOLIC ACID/VIT B6/VIT B12 TABLET 1 TAB PO (08:52)
[2023-12-19] MEDS: METOPROLOL TARTRATE 25 MG TABLET PO ×2 (08:53→21:37)
[2023-12-19] MEDS: QUETIAPINE FUMARATE 100 MG TABLET PO (08:53)
[2023-12-19] MEDS: FOLIC ACID 1 MG TABLET PO (08:53)
[2023-12-19] MEDS: ASPIRIN 81 MG TABLET.DR PO (08:53)
[2023-12-19] MEDS: FUROSEMIDE 40 MG/4 ML VIAL IVP ×2 (09:22→21:36)
--- NOTE | 2023-12-19 09:23 | PM.IMPN1 ---
Progress Note: A&P Assessment and Plan (1) Sepsis: Assessment and Plan: Stable hemodynamics. Will switch to oral Ceftin. Qualifiers: Sepsis type: Escherichia coli Sepsis acute organ dysfunction status: with acute organ dysfunction Severe sepsis acute organ dysfunction type: acute renal failure Acute renal failure type: with acute tubular necrosis Severe sepsis shock status: without septic shock Qualified Code(s): A41.51 - Sepsis due to Escherichia coli [E. coli]; R65.20 - Severe sepsis without septic shock; N17.0 - Acute kidney failure with tubular necrosis (2) Pyelonephritis due to Escherichia coli: Assessment and Plan: Will switch to oral antibiotic. (3) E coli bacteremia: Assessment and Plan: Will switch to oral antibiotics. Repeat blood culture is negative so far (4) Acute hyponatremia: Assessment and Plan: Improving. Continue with salt tablets 3 g 3 times daily. Continue with fluid restrictions. Continue with IV Lasix. (5) Volume overload state of heart: Assessment and Plan: Likely because of oliguric ATN along with judicious IV hydration. Still evidence of volume overload on exam. Good urine output. BNP has improved but is still quite elevated. Continue with Lasix. Monitor renal function closely (6) YANG (acute kidney injury): Assessment and Plan: Developed acute kidney injury from ATN and was initially oliguric. He received judicious IV hydration and became volume overload and had to be started on IV Lasix. His serum creatinine has not quite improved and will likely need some time to recover. He has good urine output with IV Lasix. Still has volume overload and will need IV Lasix (7) Acute tubular necrosis: Assessment and Plan: Good urine output with IV Lasix. Monitor serum creatinine closely. (8) Oligouria: Assessment and Plan: Good urine output with IV Lasix. Monitor renal function. (9) Lactic acid acidosis: Assessment and Plan: Resolved (10) H/O: lung cancer: Assessment and Plan: In remission. (11) Hypothyroidism: Assessment and Plan: TSH at goal. Continue with the liver Qualifiers: Hypothyroidism type: unspecified Qualified Code(s): E03.9 - Hypothyroidism, unspecified (12) Chronic respiratory failure with hypoxia: Assessment and Plan: From prior history of lung cancer. On 2 to 3 L oxygen via nasal cannula. (13) Delirium: Assessment and Plan: Due to trazodone 2 nights ago. He is at his baseline mental status now Internal Medicine - PN: Subj Subjective Interval history: Seen and examined. Doing well overall. Responding well to IV Lasix. No overnight events. Exam Constitutional Vital Signs, click to edit/add: Last Vital Signs Temp 96.2 F L 12/19/23 07:51 Pulse 121 H 12/19/23 08:00 Resp 18 12/19/23 07:51 BP 123/77 12/19/23 07:51 Pulse Ox 92 L 12/19/23 07:51 O2 Del Method Room Air 12/19/23 07:51 O2 Flow Rate 2 12/18/23 04:56 Documenting provider has reviewed patient's vital signs: yes Common normals: no apparent distress and oriented x3 General appearance: cooperative and comfortable Nutritional appearance: overweight Respiratory Common normals: normal respiratory effort and no use of accessory muscles Effort & inspection: able to speak in complete sentences Auscultation: diminished lung sounds Cardio Common normals: S1 normal heart sound and S2 normal heart sound Rate: tachycardic Heart sounds: S1 normal and S2 normal GI Common normals: Normal to inspection, nondistended, normoactive bowel sounds present and soft to palpation Palpation: tender (right CVA tenderness and RLQ tenderness) Bladder/kidney exam: CVA tenderness on the right Extremity Common normals: no clubbing, cyanosis or edema Neuro Common normals: oriented x3, moves all extremities and no focal motor deficits Psych Common normals: mental status grossly normal, denies hallucinations, denies homicidal ideation and denies suicidal ideation Internal Medicine - PN: Obj Da Labs Labs: Laboratory Results - last 24 hr 12/18/23 12/19/23 05:52 08:04 Sodium 132 L Potassium 4.4 Chloride 99 Carbon Dioxide 14.9 L Anion Gap 22.5 BUN 41.0 H Creatinine 2.52 H Est GFR ( Amer) 32 L Est GFR (Non-Af Amer) 26 L BUN/Creatinine Ratio 16.3 Glucose 71 L Calcium 8.5 Total Bilirubin 1.2 H AST 49 H ALT 28 Alkaline Phosphatase 312 H NT-Pro-B Natriuret Pep 49163.0 H* Total Protein 5.8 L Albumin 2.0 L Globulin 3.8 Albumin/Globulin Ratio 0.5 Urinary Catheter Management Urinary Catheter Management Urethral: Cath placed during this visit: yes Urethral indwelling: Yes Reason for continuing: measure accurate output Insertion date: 12/14/23 Insertion time: 16:16
--- NOTE | 2023-12-19 09:41 | SWNOTE1 ---
Pt is not discharging today, at least one more day per doctor. Precert is good thru Sunday, per Nataliya at [place].
[2023-12-19] MEDS: CEFUROXIME AXETIL 250 MG TABLET PO ×2 (10:04→21:37)
[2023-12-19] MEDS: OXYCODONE HCL 5 MG TABLET PO ×2 (10:08→16:11)
--- NOTE | 2023-12-19 10:43 | REH.PTDLY ---
Physical Therapy Daily Note PT Daily Note/Assess Start: 12/15/23 10:55 Freq: Status: Active Protocol: Document 12/19/23 10:32 KARIME (Rec: 12/19/23 10:43 KARIME [id number]) Physical Therapy Daily Note/Assessment Time In 10:00 Time Out 10:19 Pain Level 8 Subjective Pt in bed upon arrival, states ribs hurt today. Rates 8/10. Willing to try therapy. Pt emotional at one point during therapy about being sick in hospital. Therapeutic Exercise Minutes (minutes) 4 Therapeutic Exercise Units 0 Therapeutic Exercise Treatment Sitting bedside instructed in B LE seated exs 10x ea with LAQ, marching, and AP. Therapeutic Activity Minutes (minutes) 14 Therapeutic Activity Units 1 Bed Mobility Ability Minimum Assist,2 Person Assist Therapeutic Activity Comments Pt requires Min A x2 to sit bedside. Once sitting pt reports he is very dizzy. Pt sat to see if this subsided while performing seated exs. Pt states it is better. sit to stand transfers CGA. Performed wt shifting in standing followed by gait training with RW to restroom 15 feet. Cues for pt to use grab bars in restroom for toilet transfers. Stood at sink to wash hands CGA. Gait training 22 feet over to chair CGA. Pt sit in chair post rx with chair alarm on and call light at hand for safety. Total Therapy Minutes 18 Total Physical Therapy Units 1 Daily Note Summary Pt requires RW today with gait for safety opposed to SBQC. Pt has increased dizziness, ARTHUR Ferrer states this is from medicine he is taking. Pt fatigued today and complaining of L rib pain. Pt will need SNF at [place]
--- NOTE | 2023-12-19 10:47 | CM.NOTE ---
Rounds made with Dr. Ferris, pt will discharge to skilled facility when pt medically stable.
--- NOTE | 2023-12-19 12:55 | SWNOTE1 ---
SW sent a copy of pt's [facility] card and updated progress notes, PTOT, labs, vitals, nursing notes, and med list to Nataliya at [place].
[2023-12-19] MEDS: ONDANSETRON PF 4 MG/2 ML VIAL IV (13:40)
[2023-12-19] MEDS: QUETIAPINE FUMARATE 100 MG TABLET 200 MG PO (21:37)
[2023-12-20] VITALS (9 sets, daily range): BP systolic 95–118; BP diastolic 60–75; PULSE 94–106; TEMP 36.7; O2SAT 90–94
[2023-12-20] MEDS: SODIUM CHLORIDE 1,000 MG TABLET 3000 MG PO (05:46)
[2023-12-20] MEDS: LEVOTHYROXINE SODIUM 100 MCG TABLET PO (05:46)
[2023-12-20] MEDS: HEPARIN SODIUM (PORCINE) 5,000 UNIT/ML VIAL 5000 UNIT SUBQ (05:46)
[2023-12-20 06:15] LABS: Basophils Absolute Auto 0.1 10^3/uL (0.0-0.1); Basophils Percent Auto 0.4 % (0.2-2.0); Eosinophils Absolute Auto 0.2 10^3/uL (0.0-0.7); Hematocrit 25.2 % (42.0-54.0); Hemoglobin 9.5 g/dL (14.0-18.0); Immature Granulocytes Abs Auto 0.17 10^3/uL (0.00-0.03); Immature Granulocytes Pct Auto 1.5 % (0.0-0.5); Lymphocytes Absolute Auto 1.1 10^3/uL (1.2-3.8); Lymphocytes Percent Auto 9.4 % (20.5-60.0); Mean Corpuscular HGB Conc 37.7 g/dL (29.9-35.2); Mean Corpuscular Hemoglobin 31.4 pg (25.9-34.0); Mean Corpuscular Volume 83.2 fL (80.0-94.0); Mean Platelet Volume 10.5 fL (9.5-13.5); Monocytes Absolute Auto 0.9 10^3/uL (0.3-0.8); Monocytes Percent Auto 8.1 % (1.7-12.0); Neutrophils Percent Auto 78.6 % (43.0-75.0); Platelet Count 100 10^3/uL (150-450); Red Blood Count 3.03 10^6/uL (4.70-6.10); White Blood Count 11.5 10^3/uL (4.0-11.0)
[2023-12-20 06:40] LABS: Alanine Aminotransferase 22 U/L (16-63); Albumin Globulin Ratio 0.5; Albumin Level 1.9 g/dL (3.4-5.0); Alkaline Phosphatase 258 U/L (46-116); Aspartate Amino Transferase 20 U/L (15-37); BUN Creatinine Ratio 16.1; Calcium 8.3 mg/dL (8.5-10.1); Carbon Dioxide 21.4 mmol/L (21.0-32.0); Chloride 101 mmol/L (98-107); Estimated GFR (African America 35 (>=60); Estimated GFR (Non-African Ame 28 (>=60); Globulin 3.5 g/dL; Glucose 91 mg/dL (74-106); Potassium 3.4 mmol/L (3.5-5.1); Sodium 135 mmol/L (136-145); Total Protein 5.4 g/dL (6.4-8.2)
[2023-12-20] MEDS: METOPROLOL TARTRATE 25 MG TABLET PO (08:41)
[2023-12-20] MEDS: POTASSIUM CHLORIDE 10 MEQ ER TABLET 40 MEQ PO (08:41)
[2023-12-20] MEDS: FOLIC ACID 1 MG TABLET PO (08:41)
[2023-12-20] MEDS: OXYCODONE HCL 5 MG TABLET PO (08:41)
[2023-12-20] MEDS: ASPIRIN 81 MG TABLET.DR PO (08:41)
[2023-12-20] MEDS: CEFUROXIME AXETIL 250 MG TABLET PO (08:41)
[2023-12-20] MEDS: FOLIC ACID/VIT B6/VIT B12 TABLET 1 TAB PO (08:42)
[2023-12-20] MEDS: QUETIAPINE FUMARATE 100 MG TABLET PO (08:42)
[2023-12-20] MEDS: DOCUSATE SODIUM 100 MG CAPSULE PO (08:44)
--- NOTE | 2023-12-20 09:39 | P.DS_ITS ---
DS: Providers Provider Date of admission: 12/13/23 16:41 Primary care physician: DANNA QURESHI Admitting clinician: Shaikh Barrington Attending physician on admission: Shaikh Barrington Consults: 12/13/23 Consult to Dietitian Routine Reason for consultation: weight loss 12/14/23 12:57 Occupational Therapy Eval and Treat Routine Reason for consultation: Generalized weakness Physical Therapy Eval and Treat Routine Reason for consultation: Generalized weakness Attending physician on discharge: Shaikh Barrington Discharging clinician: Shaikh Barrington Anticipated date of discharge: 12/20/23 DS: Diagnosis Discharge Diagnosis (1) Sepsis: Assessment and plan: Sepsis/bacteremia due to E. coli. Patient was treated with IV Rocephin. He is switched over to oral Ceftin and he will need another 7 days of oral antibiotic therapy. Repeat blood cultures are negative. Patient is stable for discharge on oral antibiotics Qualifiers: Sepsis type: Escherichia coli Sepsis acute organ dysfunction status: with acute organ dysfunction Severe sepsis acute organ dysfunction type: acute renal failure Acute renal failure type: with acute tubular necrosis Severe sepsis shock status: without septic shock Qualified Code(s): A41.51 - Sepsis due to Escherichia coli [E. coli]; R65.20 - Severe sepsis without septic shock; N17.0 - Acute kidney failure with tubular necrosis (2) Pyelonephritis due to Escherichia coli: Assessment and plan: Patient presented with sepsis and bacteremia due to E. coli. He also had abnormal UA with clinical evidence of pyelonephritis. Even though his urine culture is negative but this may have been because he had already received IV antibiotics for 24 hours before his urine could be sent for culture. (3) E coli bacteremia: Assessment and plan: Repeat blood culture is negative. He will be discharged on oral Ceftin. He will need another 7 days of antibiotic therapy (4) Acute hyponatremia: Assessment and plan: Initially from hypovolemia but later on developed hypervolemia because of aggressive IV hydration. His sodium is now more or less normal with addition of salt tablets/fluid restriction and IV diuresis. He will need to be discharged on oral salt tablets, continue with fluid restriction and oral diuretic therapy. Will need BMP in 1 week to ensure his renal function is not worsening and serum sodium is stable (5) Volume overload state of heart: Assessment and plan: Combination of oligoanuria/YANG and aggressive IV hydration resulted in volume overload that required IV diuresis with gradual improvement in his volume status, renal function. No acute/significant cardiac or structural abnormality noted on echocardiogram. Will discharge patient on oral Lasix 40 twice daily for 1 week, then he will need to be switched to 40 mg once daily. Patient will need close follow-up with PCP in 1 to 2 weeks. He will benefit from an tres luation by nephrology also. I ordered BMP in 1 week to ensure his serum sodium and renal function is stable (6) YANG (acute kidney injury): Assessment and plan: From ATN. Improving but not at baseline. He will likely has residual renal insufficiency from acute kidney injury/ATN. BMP in 1 week to ensure renal function is is stable and/or improving. (7) Acute tubular necrosis: Assessment and plan: Improving with IV diuresis. Good urine output. Will discharge on oral Lasix. (8) Oligouria: Assessment and plan: Resolved (9) Lactic acid acidosis: Assessment and plan: Resolved (10) H/O: lung cancer: Assessment and plan: In remission according to the patient. (11) Hypothyroidism: Assessment and plan: Continue with levothyroxine Qualifiers: Hypothyroidism type: unspecified Qualified Code(s): E03.9 - Hypothyroidism, unspecified (12) Delirium: Assessment and plan: Resolved. DS: Summary Hospital Course Hospital Course: 58-year-old male who lives by himself at home presented to ER right flank pain, nausea & vomiting. Workup in ER revealed severe sepsis secondary to pyelonephritis with acute kidney injury and severe hyponatremia. He was started on IV fluids, IV antibiotics with patient gradually subjectively feeling better. Patient's blood culture was positive for E. coli that was sensitive to Rocephin. He will need 7 more days of antibiotic therapy will be discharged on oral Ceftin. Hyponatremia initially from hypovolemia and dehydration was treated with IV saline but then needed oral salt tablets, fluid restriction and IV diuresis because of volume overload from aggressive IV hydration. He developed volume overload because of aggressive IV hydration and required IV Lasix 40 twice daily. Echocardiogram was negative for any acute cardiac structural abnormalities. His serum sodium improved gradually with salt tablets/fluid restriction and IV diuresis now normal. He is renal function is also gradually improving with last creatinine measured to be 2.36 from a high of 2.7. I suspect he will likely develop residual renal impairment because of acute kidney injury and ATN. Patient is medically stable for discharge on oral antibiotics, oral Lasix. He will need a BMP in 1 week to ensure his serum sodium and renal function is stable. He will benefit from evaluation by nephrology as outpatient. Will also need to follow-up with PCP in 1 to 2 weeks. Status at Discharge Functional status at discharge: uses cane/walker Overall status at discharge: patient is back to baseline Time Spent with Patient Time attestation: Total time spent providing and/or coordinating discharge services: Time spent: greater than 30 minutes Exam Constitutional Vital Signs, click to edit/add: Last Vital Signs Temp 98.0 F 12/20/23 08:31 Pulse 106 H 12/20/23 08:31 Resp 16 12/20/23 08:31 BP 118/75 12/20/23 08:31 Pulse Ox 91 L 12/20/23 08:31 O2 Del Method Room Air 12/20/23 08:31 O2 Flow Rate 2 12/18/23 04:56 Documenting provider has reviewed patient's vital signs: yes Common normals: no apparent distress and oriented x3 General appearance: cooperative and comfortable Nutritional appearance: overweight Respiratory Common normals: normal respiratory effort and no use of accessory muscles Effort & inspection: able to speak in complete sentences Auscultation: diminished lung sounds Cardio Common normals: S1 normal heart sound and S2 normal heart sound Rate: tachycardic Heart sounds: S1 normal and S2 normal GI Common normals: Normal to inspection, nondistended, normoactive bowel sounds present and soft to palpation Palpation: tender (right CVA tenderness and RLQ tenderness) Bladder/kidney exam: CVA tenderness on the right Extremity Common normals: no clubbing, cyanosis or edema Neuro Common normals: oriented x3, moves all extremities and no focal motor deficits Psych Common normals: mental status grossly normal, denies hallucinations, denies homicidal ideation and denies suicidal ideation DS: Data Data Completed and Pending Labs on day of discharge: Labs from last 24 hours 12/20/23 05:55 WBC 11.5 H RBC 3.03 L Hgb 9.5 L Hct 25.2 L MCV 83.2 MCH 31.4 MCHC 37.7 H RDW 15.0 Plt Count 100 L MPV 10.5 Neut % (Auto) 78.6 H Lymph % (Auto) 9.4 L Overton % (Auto) 8.1 Eos % (Auto) 2.0 Baso % (Auto) 0.4 Neut # (Auto) 9.0 H Lymph # (Auto) 1.1 L [place] # (Auto) 0.9 H Eos # (Auto) 0.2 Baso # (Auto) 0.1 Abs Immat Gran (auto) 0.17 H Imm/Tot Granulo (auto) 1.5 H Sodium 135 L Potassium 3.4 L Chloride 101 Carbon Dioxide 21.4 Anion Gap 16.0 BUN 38.0 H Creatinine 2.36 H Est GFR ( Amer) 35 L Est GFR (Non-Af Amer) 28 L BUN/Creatinine Ratio 16.1 Glucose 91 Calcium 8.3 L Total Bilirubin 1.0 AST 20 ALT 22 Alkaline Phosphatase 258 H NT-Pro-B Natriuret Pep 8125.0 H* Total Protein 5.4 L Albumin 1.9 L Globulin 3.5 Albumin/Globulin Ratio 0.5 Preliminary micro results at discharge 12/15/23 17:50 - Preliminary Blood NO GROWTH AT 36-48 HOURS. FINAL TO FOLLOW. 12/15/23 17:03 Blood Culture Result 1 - Preliminary Blood NO GROWTH AT 36-48 HOURS. FINAL TO FOLLOW. 12/13/23 14:59 - Preliminary Blood 12/13/23 14:29 Blood Culture Result 1 - Preliminary Blood Discharge Plan Discharge Disposition: Xfer Inpatient Rehab Fac Condition: Good Discharge Medications: New sodium chloride 1,000 mg tablet,soluble 1,000 mg PO TID Qty: 90 0RF cefuroxime axetil 250 mg tablet 250 mg PO BID 7 Days Qty: 14 0RF Continued aspirin 81 mg tablet,delayed release (DR/EC) 81 mg PO QDAY folic acid 1 mg tablet 1 mg PO QDAY fluticasone propion-salmeterol 250-50 mcg/dose blister with device 1 inh INHALATION Q12H cyanocobalamin (vitamin B-12) [Vitamin B-12] 1,000 mcg tablet 1,000 mcg PO .QD melatonin 3 mg tablet 3 mg PO .QHS PRN (Reason: sleep) levothyroxine 100 mcg tablet 100 mcg PO .ACB potassium chloride [Klor-Con M10] 10 mEq tablet,ER particles/crystals 10 meq PO DAILY Patient Comments: 12/03/23-12/17/23 quetiapine 100 mg tablet See Rx Instructions PO DAILY Rx Instructions: 100mg in morning 200mg at night orally daily; Changed furosemide 40 mg tablet 40 mg PO BID Qty: 0 0RF Patient Comments: 12/03/23-12/17/23 Rx Instructions: take lasix 40 BID for one week and then start using it once daily Print Language: Czech Activity Restrictions/Additional Instructions: Fluid restriction 1200ml/day Forms: Portal Instructions Follow Up Appointments: F/u with PCP in one week Recommend following up with Nephrology as outpatient Need BMP in one week before following up with PCP
--- NOTE | 2023-12-20 09:41 | CM.NOTE ---
Rounds made with Dr. Ferris, pt will discharge to [facility] for skilled therapy. Order given for [facility] to repeat chem 8 in one week.
[2023-12-20] MEDS: FUROSEMIDE 40 MG/4 ML VIAL IVP (10:42)
--- NOTE | 2023-12-20 10:51 | REH.PTDLY ---
Physical Therapy Daily Note PT Daily Note/Assess Start: 12/15/23 10:55 Freq: Status: Active Protocol: Document 12/20/23 10:50 KARIME (Rec: 12/20/23 10:51 KARIME [id number]) Visit Not Completed Visit Not Completed Due to: Pt refusing Other Reason Visit Not Completed Pt declines rx today, states he just doesn't feel like it at this time. Being DC to rehab today. Physical Therapy Daily Note/Assessment Time In 10:50 Time Out 10:52
--- NOTE | 2023-12-20 11:34 | SWNOTE1 ---
Pt is ready for discharge today to [facility] today for rehab. SHAUNA set up trips for 12:20-12:50. SHAUNA notified Nataliya at [place], family, and nursing of time. SHAUNA sent over dc med rec and dc summary to Nataliya at [facility] and faxed the information as well. SHAUNA took packet to med/surge floor.
--- NOTE | 2023-12-20 12:17 | PC.NURSE ---
Certified Court/Medical Interpreter attempted x2 to call report to [facility] at this time still no answer. All documents sent in packet. Day [facility]ch[facility] notified and updated at this time of pts transfer to [facility] for SNF. Nubia and all personals sent.
== END 2023-12-20 12:30 | DRG 871 ==
LOC: ER 15:37 → MS 16:50
PROVIDERS: Admitting Provider Internal Medicine; Emergency Provider Student in an Organized Health Care Education/Training Program; PCP Family Medicine; Visit Provider Internal Medicine
DX: A41.51 Sepsis due to Escherichia coli [E. coli] (principal); E43 Unspecified severe protein-calorie malnutrition; N17.0 Acute kidney failure with tubular necrosis; E87.1 Hypo-osmolality and hyponatremia; N10 Acute pyelonephritis; E87.20 Acidosis, unspecified; J96.11 Chronic respiratory failure with hypoxia; Z68.1 Body mass index [BMI] 19.9 or less, adult; R65.20 Severe sepsis without septic shock; E86.0 Dehydration; E03.9 Hypothyroidism, unspecified; I10 Essential (primary) hypertension; J44.9 Chronic obstructive pulmonary disease, unspecified; E87.70 Fluid overload, unspecified; R41.0 Disorientation, unspecified; T43.215A Adverse effect of selective serotonin and norepinephrine reuptake inhibitors, initial encounter; Z85.118 Personal history of other malignant neoplasm of bronchus and lung; Z98.890 Other specified postprocedural states; Z98.52 Vasectomy status; Z87.891 Personal history of nicotine dependence; Z79.82 Long term (current) use of aspirin; Z79.899 Other long term (current) drug therapy; Z79.890 Hormone replacement therapy
CPT/HCPCS: 36415; 36591; 51702; 51798; 71045; 74176; 80048; 80053; 81001; 82570; 83605; 83880; 84300; 84443; 85007; 85025; 85027; 87040; 87077; 87086; 87150; 87186; 93005; 93306; 94640; 94761; 96361; 96365; 96366; 96372; 96375; 96376; 97162; 97165; 97530; 97535; 99285; J0696; J1885; J1940; J2270; J2405

== ENCOUNTER 2024-01-07 08:21 | Observation (INO) | payer OTHER, MEDICARE, MEDICAID, SELFPAY ==
[2024-01-07] VITALS (24 sets, daily range): BP systolic 105–149; BP diastolic 78–98; PULSE 69–101; TEMP 36.5–36.7; O2SAT 94–100; BMI 19.7; BMI 19.0
--- NOTE | 2024-01-07 08:38 | ECG_ITS ---
The [facility] Test Date: 2024-01-07 Pat Name: TONI GERBER Department: Room: - Gender: Male [employer]: : 1965 Requested By: Order Number: [id number] Reading MD: FRANCISCO JAVIER KRUSE Measurements Intervals [place] Rate: 95 P: 80 MO: 202 QRS: 72 QRSD: 88 T: 79 QT: 348 QTc: 401 Interpretive Statements 1100 Sinus rhythm 9150 abnormal ECG Electronically Signed On 01-07-2024 20:08:45 EDT by FRANCISCO JAVIER KRUSE
[2024-01-07 09:05] LABS: Basophils Absolute Auto 0.1 10^3/uL (0.0-0.1); Basophils Percent Auto 0.7 % (0.2-2.0); Eosinophils Absolute Auto 0.3 10^3/uL (0.0-0.7); Eosinophils Percent Auto 2.7 % (0.9-7.0); Hematocrit 32.3 % (42.0-54.0); Hemoglobin 10.8 g/dL (14.0-18.0); Immature Granulocytes Abs Auto 0.03 10^3/uL (0.00-0.03); Immature Granulocytes Pct Auto 0.3 % (0.0-0.5); Lymphocytes Absolute Auto 1.4 10^3/uL (1.2-3.8); Lymphocytes Percent Auto 13.1 % (20.5-60.0); Mean Corpuscular HGB Conc 33.4 g/dL (29.9-35.2); Mean Corpuscular Volume 95.8 fL (80.0-94.0); Mean Platelet Volume 8.8 fL (9.5-13.5); Monocytes Absolute Auto 0.9 10^3/uL (0.3-0.8); Monocytes Percent Auto 8.5 % (1.7-12.0); Neutrophils Percent Auto 74.7 % (43.0-75.0); Platelet Count 322 10^3/uL (150-450); Red Blood Count 3.37 10^6/uL (4.70-6.10); Red Cell Distribution Width 17.6 % (11.0-15.0); White Blood Count 10.6 10^3/uL (4.0-11.0)
[2024-01-07 09:14] LABS: Magnesium 2.3 mg/dL (1.8-2.4)
[2024-01-07 09:16] LABS: INR 0.98; Prothrombin Time 10.4 sec (9.0-11.6)
[2024-01-07] MEDS: MORPHINE SULFATE 2 MG/ML SYRINGE IV (09:19)
[2024-01-07 09:23] LABS: Lactate/Lactic Acid 1.7 mmol/L (0.4-2.0)
[2024-01-07 09:29] LABS: Alanine Aminotransferase 18 U/L (16-63); Albumin Globulin Ratio 0.7; Albumin Level 3.2 g/dL (3.4-5.0); Alkaline Phosphatase 130 U/L (46-116); Anion Gap 15.3; Aspartate Amino Transferase 14 U/L (15-37); BUN Creatinine Ratio 18.4; Bilirubin Total 0.3 mg/dL (0.2-1.0); Calcium 9.4 mg/dL (8.5-10.1); Carbon Dioxide 23.9 mmol/L (21.0-32.0); Chloride 98 mmol/L (98-107); Estimated GFR (African America >60 (>=60); Estimated GFR (Non-African Ame 52 (>=60); Globulin 4.5 g/dL; Glucose 105 mg/dL (74-106); Potassium 4.2 mmol/L (3.5-5.1); Sodium 133 mmol/L (136-145); Total Protein 7.7 g/dL (6.4-8.2); Troponin I High Sensitivity 4.6 pg/mL (4.0-76.1)
--- NOTE | 2024-01-07 09:35 | XR_ITS ---
The [address] [address] Patient Name: TONI GERBER MRN: [id number] date: 1965 Sex: M Assigned Patient Location: ER Current Patient Location: ER Accession/Order Number: [id number] Exam Date: 01/07/2024 09:28 Report Date: 01/07/2024 09:58 At the request of: JEVON FLORES Procedure: XR chest 1V EXAMINATION: XR chest 1V HISTORY: sob COMPARISON: 12/16/2023 TECHNIQUE: AP portable FINDINGS: LUNGS: Right lung volume loss. Slight increase in infiltrates in the right midlung. The left lung is clear. VASCULATURE: No increased pulmonary vasculature. PLEURA: Stable thickening/fluid right lateral hemithorax CARDIAC: No cardiomegaly or cardiac silhouette abnormality. MEDIASTINUM: No visible mass or adenopathy. Left Port-A-Cath tip projects over the proximal superior vena cava BONES: No fracture or visible bone lesion. OTHER: Negative. XR/XR chest 1V IMPRESSION: Increase in right mid lung infiltrates with stable right lung volume loss Electronically authenticated by: MARCE GOULD Date: 01/07/2024 09:58
--- NOTE | 2024-01-07 09:42 | CT_ITS ---
The [address] [address] Patient Name: TONI GERBER MRN: [id number] date: 1965 Sex: M Assigned Patient Location: ER Current Patient Location: ER Accession/Order Number: [id number] Exam Date: 01/07/2024 09:28 Report Date: 01/07/2024 10:04 At the request of: JEVON FLORES Procedure: CT head/brain wo con EXAM: CT head/brain wo con HISTORY: head trauma COMPARISON: MR brain 11/09/2017. TECHNIQUE: Axial noncontrast CT imaging of the head was performed with coronal and sagittal reformats. This CT exam was performed using one or more of the following dose reduction techniques: Automated exposure control, adjustment of the MA and/or kV according to patient size, or use of iterative reconstruction technique. FINDINGS: Calvarium/skull base: No evidence of acute fracture or destructive lesion. Left gambell ocular lens replacement. Paranasal sinuses: No air fluid levels. Brain: No acute intracranial hemorrhage. No acute large vascular territory infarct. Age advanced moderate parenchymal volume loss stable from prior. No mass lesion or mass effect. No hydrocephalus. CT/CT head/brain wo con IMPRESSION: No acute intracranial process. Electronically authenticated by: RAYA LEE Date: 01/07/2024 10:04
--- NOTE | 2024-01-07 09:42 | CT_ITS ---
[address] [address] Patient Name: TONI GERBER MRN: [id number] date: 1965 Sex: M Assigned Patient Location: ER Current Patient Location: ER Accession/Order Number: [id number] Exam Date: 01/07/2024 09:28 Report Date: 01/07/2024 10:05 At the request of: JEVON FLORES Procedure: CT abdomen pelvis wo con EXAMINATION: CT abdomen pelvis wo con HISTORY: sbo constipation COMPARISON: 12/13/2023 TECHNIQUE: Axial, Coronal, and Sagittal images were created without IV contrast. Dose reduction techniques were achieved by using automated exposure control and/or adjustment of mA and/or kV according to patient size and/or use of iterative reconstruction technique. FINDINGS: LUNG BASES: Right lung volume loss with basilar atelectasis. Right pleural thickening. Small pericardial fluid measuring up to 5 mm LIVER: No enlargement, atrophy, abnormal density, or significant focal lesion. BILIARY: Minimal cholelithiasis without CT evidence of acute cholecystitis PANCREAS: Dilated pancreatic duct. Pancreatic head calcification suggests chronic pancreatitis SPLEEN: No enlargement or focal lesion. ADRENALS: No mass or enlargement. KIDNEYS: No mass, obstruction, or calcification. BOWEL/MESENTERY: Large amount of stool in the rectum which measures 7.4 cm transversely. There is fluid filling of proximal to mid small bowel loops which measure up to 4.1 cm in diameter. There is relative collapse of the distal small bowel loops the transition point cannot be determined AORTA/VASCULAR: No aortic aneurysm. Mild to moderate atherosclerosis RETROPERITONEUM: No mass or adenopathy. LYMPH NODES: No adenopathy. URINARY BLADDER: No visible focal wall thickening, lesion, or calculus. PELVIC ORGANS: No visible mass. Pelvic organs appropriate for patient age. ABDOMINAL WALL: No mass or hernia. BONES: No bony lesion or fracture. OTHER: Negative. CT/CT abdomen pelvis wo con IMPRESSION: Large amount of stool in the rectum Dilated fluid-filled proximal small bowel loops with distal small bowel collapse. Consider a developing small bowel obstruction Electronically authenticated by: MARCE GOULD Date: 01/07/2024 10:05
--- NOTE | 2024-01-07 11:19 | ED_ITS ---
HPI - Abdominal Pain General Chief Complaint: Abdominal Pain Stated Complaint: SOB, CONSTIPATION Time Seen by Provider: 01/07/24 08:39 Source: patient Mode of arrival: walk-in History of Present Illness HPI narrative: Patient have history of lung cancer on remission is coming to the ER with abdominal pain and constipation for the last 5 days, patient also mentioned that he was trying to have a bowel movement this morning when he passed out while he straining in the toilet seat and he might have had hit his head, patient at the moment denies any headache he did mention having chest pain sometime when straining The patient denies any other complaint but his main concern and distress reason while coming to the ER today is the constipation Related Data Home Medications ?Medication ?Instructions ?Recorded ?Confirmed aspirin 81 mg tablet,delayed 81 mg PO QDAY 01/02/23 01/07/24 release folic acid 1 mg tablet 1 mg PO QDAY 01/02/23 01/07/24 cyanocobalamin (vitamin B-12) 1,000 mcg PO .QD 11/06/23 01/07/24 1,000 mcg tablet (Vitamin B-12) fluticasone 250 mcg-salmeterol 50 1 inh inhalation Q12H 11/06/23 01/07/24 mcg/dose blistr powdr for inhalation melatonin 3 mg tablet 3 mg PO .QHS PRN sleep 11/06/23 01/07/24 quetiapine 100 mg tablet See Rx Instructions PO DAILY 11/26/23 01/07/24 levothyroxine 100 mcg tablet 100 mcg PO .ACB 12/13/23 01/07/24 Previous Rx's ?Medication ?Instructions ?Recorded cefuroxime axetil 250 mg tablet 250 mg PO BID 7 days #14 tabs 12/20/23 sodium chloride 1,000 mg soluble 1,000 mg PO TID #90 tabs 12/20/23 tablet Allergies Allergy/AdvReac Type Severity Reaction Status Date / Time chlordiazepoxide Allergy facial Verified 11/16/23 14:39 [From Librium] swelling lisinopril Allergy Hypotension Verified 11/16/23 14:38 sertraline Allergy low energy Verified 11/16/23 14:39 Review of Systems ROS Status of ROS 10 or more systems reviewed and unremark able except as noted in history and below [facility] Medical History (Updated 12/24/23 @ 00:00 by ) Chronic respiratory failure with hypoxia ?J96.11 - Chronic respiratory failure with hypoxia (ICD-10) H/O: lung cancer ?Z85.118 - Personal history of other malignant neoplasm of bronchus and lung (ICD-10) History of lung cancer in adulthood ?Z85.118 - Personal history of other malignant neoplasm of bronchus and lung (ICD-10) Adult failure to thrive ?R62.7 - Adult failure to thrive (ICD-10) Acute hyponatremia ?E87.1 - Hypo-osmolality and hyponatremia (ICD-10) Acute exacerbation of chronic obstructive pulmonary disease (COPD) ?J44.1 - Chronic obstructive pulmonary disease with (acute) exacerbation (ICD-10) Costochondritis ?M94.0 - Chondrocostal junction syndrome [Tietze] (ICD-10) Hyponatremia ?E87.1 - Hypo-osmolality and hyponatremia (ICD-10) Partial small bowel obstruction ?K56.600 - Partial intestinal obstruction, unspecified as to cause (ICD-10) Insomnia ?G47.00 - Insomnia, unspecified (ICD-10) Hypothyroidism ?E03.9 - Hypothyroidism, unspecified (ICD-10) Lung cancer ?C34.90 - Malignant neoplasm of unspecified part of unspecified bronchus or lung (ICD-10) Hypertension ?I10 - Essential (primary) hypertension (ICD-10) Surgical History History of hand surgery ?Z98.890 - Other specified postprocedural states (ICD-10) History of colonoscopy ?Z98.890 - Other specified postprocedural states (ICD-10) H/O vasectomy ?Z98.52 - Vasectomy status (ICD-10) Family History Father Family history of cancer Family history of COPD (chronic obstructive pulmonary disease) Mother Family history of diabetes mellitus Family history of COPD (chronic obstructive pulmonary disease) Brother Family history of diabetes mellitus Sister Family history of diabetes mellitus Social History (Updated 12/13/23 @ 17:47 by Brook Becker RN) Within the past year, how often did you have a drink containing alcohol: 4 or more times a week Within the past year, how many standard drinks containing alcohol did you have on a typical day: 1 or 2 Within the past year, how often did you have six or more drinks on one occasion: less than monthly Total score: 1 Score interpretation: A score of 4 or more indicates drinking is likely to affect patient's safety. Smoking status: Former smoker Non-prescribed substance use: cannabis (any form) Highest level of school completed/degree received: some college, no degree Are you now , , , , never or living with a partner: In a typical week, how many times do you talk on the telephone with family, friends, or neighbors: never How often do you get together with friends or relatives: never Exam Narrative Exam Narrative: Nurses notes and vital signs reviewed and patient is not hypoxic. General: Well-appearing and in no apparent distress. Skin: Warm, dry, no pallor noted. No rash. Head: Normocephalic, atraumatic. Neck: Supple, non-tender. Eye: Pupils are equal, round and EOMI. No scleral icterus. Ears, Nose, Mouth, and Throat: TM are clear, no nasal mucosal hypertrophy. Oral mucosa is moist, no posterior oropharynx erythema, uvula is mid-line Cardiovascular: Regular Rate and Rhythm without murmur, gallop or rub. Respiratory: No accessory muscle use or respiratory distress. Lungs are clear to auscultation, no wheezing, rales or rhonchi Chest Wall: no tenderness Back: No midline thoracic or lumbar vertebral tenderness. No CVA tenderness Musculoskeletal: normal ROM, no calf or popliteal tenderness, no lower extremity edema/swelling GI:the patient have abdominal tenderness on the suprapubic area, rectal exam showing no hemorrhoids Neurological: A&O x4. No cranial nerve dysfunction observed. No truncal ataxia. Moves all extremities. Sensation intact. Psychiatric: Cooperative and interactive. Normal mood and affect. Constitutional Vital Signs, click to edit/add: Last Vital Signs Temp 97.8 F 01/07/24 08:28 Pulse 94 H 01/07/24 09:43 Resp 21 H 01/07/24 09:43 BP 141/90 01/07/24 09:43 Pulse Ox 99 01/07/24 08:31 O2 Del Method Room Air 01/07/24 08:28 Course Vital Signs Vital signs: Vital Signs Temperature 97.8 F 01/07/24 08:28 Pulse Rate 101 H 01/07/24 08:28 Respiratory Rate 22 H 01/07/24 08:28 Blood Pressure 140/94 H 01/07/24 08:28 Pulse Oximetry 98 01/07/24 08:28 Oxygen Delivery Method Room Air 01/07/24 08:28 Temperature 97.8 F 01/07/24 08:28 Pulse Rate 94 H 01/07/24 09:43 Respiratory Rate 21 H 01/07/24 09:43 Blood Pressure 141/90 01/07/24 09:43 Pulse Oximetry 99 01/07/24 08:31 Oxygen Delivery Method Room Air 01/07/24 08:28 MDM - Abdominal Pain MDM Narrative Medical decision making narrative: Bladder scan shows no retention in the ER The patient EKG in the ER showing sinus rhythm with a heart rate of [address] elevation or depression CBC shows no acute significant pathology in his chronic kidney disease is showing some improvement to his blood workup Troponin is negative The patient CAT scan of the abdomen shows fecal impaction and picture of ongoing small bowel obstruction A bedside attempt to do disimpaction was not adequate as I was not able to get except for small amount of stool as most of it is elevated away from the rectal verge The patient was provided with a rectal enema and right now he is on the toilet seat or waiting to see improvement The patient case was discussed with the general surgeon , and he agreed that the patient presentation is mostly secondary to the fecal disimpaction and there is no small obstruction The patient case was discussed with Dr. Carlisle the patient will need to be evaluated further for his impaction with multiple enemas specially with the straining causing him to have syncopal episode and mostly vasovagal due to the Lab Data Labs: Lab Results 01/07/24 Range/Units 08:52 WBC 10.6 (4.0-11.0) 10^3/uL RBC 3.37 L (4.70-6.10) 10^6/uL Hgb 10.8 L (14.0-18.0) g/dL Hct 32.3 L (42.0-54.0) % MCV 95.8 H (80.0-94.0) fL MCH 32.0 (25.9-34.0) pg MCHC 33.4 (29.9-35.2) g/dL RDW 17.6 H (11.0-15.0) % Plt Count 322 (150-450) 10^3/uL MPV 8.8 L (9.5-13.5) fL Neut % (Auto) 74.7 (43.0-75.0) % Lymph % (Auto) 13.1 L (20.5-60.0) % Hettinger % (Auto) 8.5 (1.7-12.0) % Eos % (Auto) 2.7 (0.9-7.0) % Baso % (Auto) 0.7 (0.2-2.0) % Neut # (Auto) 8.0 H (1.4-6.5) 10^3/uL Lymph # (Auto) 1.4 (1.2-3.8) 10^3/uL Hettinger # (Auto) 0.9 H (0.3-0.8) 10^3/uL Eos # (Auto) 0.3 (0.0-0.7) 10^3/uL Baso # (Auto) 0.1 (0.0-0.1) 10^3/uL Abs Immat Gran (auto) 0.03 (0.00-0.03) 10^3/uL Imm/Tot Granulo (auto) 0.3 (0.0-0.5) % PT 10.4 (9.0-11.6) sec INR 0.98 Sodium 133 L (136-145) mmol/L Potassium 4.2 (3.5-5.1) mmol/L Chloride 98 (98-107) mmol/L Carbon Dioxide 23.9 (21.0-32.0) mmol/L Anion Gap 15.3 BUN 26.0 H (7.0-18.0) mg/dL Creatinine 1.41 H (0.70-1.30) mg/dL Est GFR ( Amer) >60 (>=60) Est GFR (Non-Af Amer) 52 L (>=60) BUN/Creatinine Ratio 18.4 Glucose 105 (74-106) mg/dL Lactate 1.7 (0.4-2.0) mmol/L Calcium 9.4 (8.5-10.1) mg/dL Magnesium 2.3 (1.8-2.4) mg/dL Total Bilirubin 0.3 (0.2-1.0) mg/dL AST 14 L (15-37) U/L ALT 18 (16-63) U/L Alkaline Phosphatase 130 H (46-116) U/L Troponin I High Sens 4.6 (4.0-76.1) pg/mL Total Protein 7.7 (6.4-8.2) g/dL Albumin 3.2 L (3.4-5.0) g/dL Globulin 4.5 g/dL Albumin/Globulin Ratio 0.7 Discharge Plan Discharge Chief Complaint: Abdominal Pain Clinical Impression: Syncope, SBO (small bowel obstruction), Fecal impaction Patient Disposition: Admitted As Inpatient
[2024-01-07] MEDS: 0.9 % SODIUM CHLORIDE 1,000 ML 500 ML IV (11:35)
--- NOTE | 2024-01-07 12:32 | P.HP_ITS ---
HPI H&P: HPI History of Present Illness Chief complaint: SOB, CONSTIPATION, SYNCOPE, S.B.O. Narrative: Patient is a his is a 58-year-old male patient with a past medical history of hypothyroidism, insomnia, and history of lung cancer s/p chemo and radiation in 2019, COPD who presented to the ER today with abdominal pain, worse in right lower quadrant. He denies fevers or chills, states that he does not have much of appetite anymore and a bowl of cereal lasts 2 days for him. He has not had a BM in over 1 week. He denies any blood in his stool. Last colonoscopy was in [facility] about 6 years ago. He denies any history of colon cancer. He was admitted to this facility about 1 year ago with SBO. he denies any vomiting or diarrhea. ER findings: WBC's 10.6, Cr 1.41, sodium 133 CT: Large amount of stool in the rectum; Dilated fluid-filled proximal small bowel loops with distal small bowel collapse. Consider a developing small bowel obstruction Patient received manual disimpaction which was unsuccessful, and 2 enema's. He was admitted for further plan of care. Opioid HPI Opioid Management Most Recent Pain and Opioid Data: Last Pain Scale 6 01/07/24 14:00 Last Pain Intensity 8 12/19/23 10:32 Last Pain Assessment 01/07/24 14:00 Last MAR Pain Assessment 01/07/24 09:19 Last ORT Total Score 7 01/07/24 12:53 Last ORT Risk Category Moderate Risk 01/07/24 12:53 Review of Systems ROS Narrative ROS: a complete review of systems were reviewed with patient and are positive as below or listed in History of Chief Complaint. General: no fever, chills, night sweats Head: no headache, trauma, visual changes, nausea or vomiting Skin: no reported rashes, itching or sores Eyes: no blurriness of vision Ears: no reported hearing loss, vertigo, earache, or tinnitus Throat: no sore throat, hoarseness, swelling of neck, or tongue pain Heart: no chest pain Lungs: no shortness of breath or cough GI: no diarrhea or vomiting/nausea, RLQ abdominal pain Urinary: no urinary urgency, frequency or pain Neuro: no numbness or tingling HEM: no bleeding issues or bruising ENDO: no thyroid problems Psych: no anxiety or depression [facility] Medical History (Updated 01/07/24 @ 15:21 by Nilsa Carlisle DO) Chronic respiratory failure with hypoxia ?J96.11 - Chronic respiratory failure with hypoxia (ICD-10) H/O: lung cancer ?Z85.118 - Personal history of other malignant neoplasm of bronchus and lung (ICD-10) History of lung cancer in adulthood ?Z85.118 - Personal history of other malignant neoplasm of bronchus and lung (ICD-10) Adult failure to thrive ?R62.7 - Adult failure to thrive (ICD-10) Acute hyponatremia ?E87.1 - Hypo-osmolality and hyponatremia (ICD-10) Acute exacerbation of chronic obstructive pulmonary disease (COPD) ?J44.1 - Chronic obstructive pulmonary disease with (acute) exacerbation (ICD-10) Costochondritis ?M94.0 - Chondrocostal junction syndrome [Tietze] (ICD-10) Hyponatremia ?E87.1 - Hypo-osmolality and hyponatremia (ICD-10) Partial small bowel obstruction ?K56.600 - Partial intestinal obstruction, unspecified as to cause (ICD-10) Insomnia ?G47.00 - Insomnia, unspecified (ICD-10) Hypothyroidism ?E03.9 - Hypothyroidism, unspecified (ICD-10) Lung cancer ?C34.90 - Malignant neoplasm of unspecified part of unspecified bronchus or lung (ICD-10) Hypertension ?I10 - Essential (primary) hypertension (ICD-10) Surgical History History of hand surgery ?Z98.890 - Other specified postprocedural states (ICD-10) History of colonoscopy ?Z98.890 - Other specified postprocedural states (ICD-10) H/O vasectomy ?Z98.52 - Vasectomy status (ICD-10) Family History Father Family history of cancer Family history of COPD (chronic obstructive pulmonary disease) Mother Family history of diabetes mellitus Family history of COPD (chronic obstructive pulmonary disease) Brother Family history of diabetes mellitus Sister Family history of diabetes mellitus Social History Within the past year, how often did you have a drink containing alcohol: 4 or more times a week Within the past year, how many standard drinks containing alcohol did you have on a typical day: 1 or 2 Within the past year, how often did you have six or more drinks on one occasion: less than monthly Total score: 1 Score interpretation: A score of 4 or more indicates drinking is likely to affect patient's safety. Smoking status: Former smoker Non-prescribed substance use: cannabis (any form) Highest level of school completed/degree received: some college, no degree Are you now , , , , never or living with a partner: In a typical week, how many times do you talk on the telephone with family, friends, or neighbors: never How often do you get together with friends or relatives: never Meds Home Medications and Allergies Home Medications ?Medication ?Instructions ?Recorded ?Confirmed ?Type aspirin 81 mg tablet,delayed 81 mg PO QDAY 01/02/23 01/07/24 History release cyanocobalamin (vitamin B-12) 1,000 mcg PO .QD 11/06/23 01/07/24 History 1,000 mcg tablet (Vitamin B-12) fluticasone 250 mcg-salmeterol 50 1 inh inhalation Q12H 11/06/23 01/07/24 History mcg/dose blistr powdr for inhalation melatonin 3 mg tablet 3 mg PO QPM PRN sleep 11/06/23 01/07/24 History quetiapine 100 mg tablet 100 mg PO DAILY 11/26/23 01/07/24 History levothyroxine 100 mcg tablet 100 mcg PO DAILY 12/13/23 01/07/24 History quetiapine 100 mg tablet (Seroquel) 200 mg PO .QHS 01/07/24 01/07/24 History sodium chloride 1,000 mg soluble 1,000 mg PO TID 01/07/24 01/07/24 History tablet Allergies Allergy/AdvReac Type Severity Reaction Status Date / Time chlordiazepoxide Allergy facial Verified 11/16/23 14:39 [From Librium] swelling lisinopril Allergy Hypotension Verified 11/16/23 14:38 sertraline Allergy low energy Verified 11/16/23 14:39 Exam Narrative Exam Narrative: General: Patient is alert, and oriented to person, place and time with normal affect, cachexia Skin: no visible rashes, or ulcers Head: atraumatic, acephalic Eyes: PERRLA, no nystagmus present, conjunctiva clear, no scleral icterus Ears: normal gross auditory acuity Neck: no masses palpated Heart: Normal rate and rhythm, no murmurs/rubs/gallops Lungs: no audible wheezes, crackles and normal breath sounds all lung rivas Abdomen: sluggish bowel sounds, no distension, No palpable masses, pain/guarding RLQ Musculoskeletal: muscle atrophy noted, ROM is limited due to being in hospital bed, no swelling bilateral lower extremities Neuro: CN II-X grossly intact Constitutional Vital Signs, click to edit/add: Last Vital Signs Temp 97.8 F 01/07/24 08:28 Pulse 87 01/07/24 11:50 Resp 26 H 01/07/24 11:50 BP 149/98 H 01/07/24 11:40 Pulse Ox 99 01/07/24 11:50 O2 Del Method Room Air 01/07/24 08:28 Results Labs Labs: Short CBC 01/07/24 Range/Units 08:52 WBC 10.6 (4.0-11.0) 10^3/uL Hgb 10.8 L (14.0-18.0) g/dL Hct 32.3 L (42.0-54.0) % Plt Count 322 (150-450) 10^3/uL BMP 01/07/24 08:52 Sodium 133 L Potassium 4.2 Chloride 98 Carbon Dioxide 23.9 BUN 26.0 H Creatinine 1.41 H Glucose 105 Calcium 9.4 Liver Function 01/07/24 Range/Units 08:52 Total Bilirubin 0.3 (0.2-1.0) mg/dL AST 14 L (15-37) U/L ALT 18 (16-63) U/L Alkaline Phosphatase 130 H (46-116) U/L Albumin 3.2 L (3.4-5.0) g/dL Assessment and Plan Assessment and Plan (1) Abdominal pain, generalized: Assessment and Plan: current treatment for constipation with lactulose and glycerin enema. will give hyoscyamine for pain. recheck X-ray in the morning, clear diet. ER physician spoke with Dr. Wilcox general surgery who reviewed CT and does not think it's SBO, treat constipation. (2) Constipation: Assessment and Plan: see #1, significant stool burden seen on CT. Qualifiers: Constipation type: unspecified constipation type Qualified Code(s): K59.00 - Constipation, unspecified (3) Hypothyroidism: Assessment and Plan: recheck TFT's in the morning, continue levothyroxine. Qualifiers: Hypothyroidism type: unspecified Qualified Code(s): E03.9 - Hypothyroidism, unspecified (4) Insomnia: Assessment and Plan: continue seroquel Qualifiers: Insomnia type: primary Qualified Code(s): F51.01 - Primary insomnia (5) Hyponatremia: Assessment and Plan: chronic, monitor, continue sodium replacement (6) Malnutrition of moderate degree: Assessment and Plan: nutrition consult. Plan Patient is a full code compression device for DVT prophylaxis patient is observation status and is not expected to cross 2 midnights.
[2024-01-07] MEDS: GLYCERIN ADULT 2 GRAM RECTAL SUPPOSITORY 1 EACH PR (12:57)
[2024-01-07] MEDS: LACTULOSE 10 GM/15 ML UD CUP PO ×2 (12:57→21:25)
--- OUTSIDE RECORDS SUMMARY | 2024-01-07 13:08 | XMS_ITS | CCD ---
Author Organization [facility] Care Team Providers Care Banana Ripening Room Supervisor Name Role Phone Salam, Galloway Unavailable Unavailable Salam, Galloway Unavailable Unavailable Salam, Galloway Unavailable Unavailable RYLAN ANDREA~[phone] UNKNOWN Unavailable Unavailable CUBA ESQUIVEL Unavailable Unavailable ALVIN CUBA Krystina Unavailable Unavailable AHMEDKEISHA Referring Unavailable AHMEDKEISHA Primary [...] Unavailable Dr. Lukas Oliveira Attending Unavailable MD Ryaln Andrea Primary Care Provider [phone] MD Varghese Duval Referring Provider DO Estela Varma II Attending Provider MD Rylan Andrea Primary Care Provider [phone] MD Varghese Duval Referring Provider [phone] DO Estela Varma II Attending Provider DO Kali Longo Emergency Provider MD Tez Irene Admit Provider MD Tez Irene Attending Provider [phone] MD Rylan Andrea Primary Care Provider [phone] DO Estela Varma II Other Provider [phone] MD Varghese Duval Referring Provider Adamowicz II, DO Estela J Attending Provider [phone] MD Varghese Duval Referring Provider Adamowicz II, DO Estela J Attending Provider MD Rachid Chase Attending Provider [phone] MD Varghese Duval Attending Provider Adamowicz II, DO Estela J Attending Provider MD Annette Guardado Other Provider MD Varghese Duval Referring Provider [phone] Rachid Chase Unavailable MD Rylan Andrea Primary Care Provider MD Varghese Duval Referring Provider [phone] Adamowicz II, DO Estela J Attending Provider YULY Isidro Attending Provider KIERA, DR CLAY Primary Care Unavailable ADAMOWICZ, ESTELA J Admitting Unavailable ADAMOWICZ, ESTELA J Attending Unavailable ADAMOWICZ, ESTELA J Consulting Unavailable ANDREA, DR CLAY Primary Care Unavailable ADAMOWICZ, ESTELA J Admitting Unavailable ADAMOWICZ, ESTELA J Attending Unavailable ADAMOWICZ, ESTELA J Consulting Unavailable ANDREA, DR CLAY Primary Care Unavailable ADAMOWICZ, ESTELA J Admitting Unavailable ADAMOWICZ, ESTELA J Attending Unavailable ADAMOWICZ, ESTELA J Consulting Unavailable AXTELL, DR MARCE Fernandez Consulting Unavailable NADERER, DR LIZBET Flhaerty Admitting Unavailable NADERER, DR LIZBET Flaherty Attending [...] Unavailable ANDREA, DR CLAY Primary Care Unavailable TADEOICZSTEPHENIEESTELA J Admitting Unavailable TADEOICZ, ESTELA J Attending Unavailable LAURAOWICZ, ESTELA J [...] Rosales Attending Provider KIKO Molina Emergency Provider [phone] MD Varghese Duval Referring Provider [phone] Adamowicz II, DO Estela Rosales Attending Provider MD Varghese Duval Referring Provider Adamowicz II, DO Estela Rosales Attending Provider Rylan Andrea MD Primary Care Provider Kailey POULTRY BUYER, Marilu Unavailable Sanna ALMEIDA, Nilsa R Unavailable [phone] Eliseo GIBSON, Morenita Unavailable Carlota JIANG, Sanjuana Unavailable MD Rylan Andrea Primary Care Provider MD Varghese Duval Referring Provider Adamowicz II, DO Estela Rosales Attending Provider RYLAN ANDREA Referring Unavailable RYLAN ANDREA Primary Care Unavailable RYLAN ANDREA Referring Unavailable RYLAN ANDREA Primary Care Unavailable Varghese Duval Referring Unavailable Adamowicz II, Estela Rosales Attending Unavaila ble Adamowicz II, Estela Rosales Admitting Unavaila ble Rylan Andrea Primary Care Unavailable RYLAN ANDREA Attending Unavailable KAILEY, MARILU Attending Unavailable KAILEY, MARILU Referring Unavailable KAILEY, MARILU Attending Unavailable WARCHOL, MARILU Attending Unavailable FLORINDA MONK Attending Unavailable MARILU BONNER Attending Unavailable MARILU BONNER Attending Unavailable RYLAN ANDREA Attending Unavailable Allergies Allergy Classification Reported Allergen(s) Allergy Type Date of Onset Reaction(s) Facility (4 sources) chlordiazePOXID E; Translations: [Librium] Drug Allergy Unknown [facility] Repository (18 sources) Lisinopril Drug Allergy 2 Unknown, Swelling of Lip/Tongue/Thro at [facility] (20 sources) Sertraline; Translations: [sertraline] Drug Allergy 2 Swelling of Lip/Tongue/Thro at [facility] (7 sources) chlordiazePOXID E; Translations: [chlordiazepoxi de] Drug Allergy 3 Edema [facility] (1 source) Amino Acids Drug Allergy [facility] Repository (1 source) Sertraline Drug Allergy 2 [facility] Repository (4 sources) Lisinopril Allergy to substance 3 [facility] (1 source) Lisinopril Drug Allergy 4 [facility] Repository Medications Current Medications Medication Drug [...] tab #100 RF zero given on 12/29 [id number] 200 actuat albuterol 0.09 mg/actuat metered dose [...] (Bisacodyl)) 10 mg Suppository Discontinued 10 MG AZ Q24H August 16, 2020 11:00pm September 01, [...] 9:51am docusate sodium 50 mg / sennosides, senior care 8.6 mg oral tablet (20 sources) Start: [...] 03, 2019 11:00pm December 01, 2019 12:23pm Ibvgvjcbyjf-Uzkttmbyp-Rpmhif er (15 sources) Anticholinergic, Corticosteroid, beta2-Adrenergic Agonist Start: 07-26-2020 End: 08-17-2020 Svynaqupbsb-Sxrdadxga-Wveebj er (Trelegy Ellipta) 100-62.5-25 mcg Blister With Device Discontinued 1 INH INHALATION Daily July 25, 2020 11:00pm August 17, 2020 8:43am Start: 07-26-2020 End: 08-17-2020 Dphivefblfu-Mfrrwctfx-Ktlkbf er (Trelegy Ellipta) 100-62.5-25 mcg Blister With [...] at the same time. 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; Translations: [[facility] CURRENT USE OF ASPIRIN] Onset: 3 Episodic [...] user; Translations: [Nicotine dependence, cigarettes, uncomplicated] Onset: 09-25-2022 Chronic Suicide and intentional self-inflicted injury [...] ALT [Catalytic activity/Vol] 14 U/L Normal 7-52 [facility] Comment on above: Performed By: #### C BC, MARILU, LIPASE, FE and TIBC, CEA, T4F, TSH3, YUSUF, [id number], CMP ####[facility]#### METH ####[facility] , Albumin [Mass/volume] in Ser um or Plasma by Bromocresol green (BCG) dye binding methoOrdered By: Estela Varma on 06-25-2023 Albumin BCG dye [Mass/Vol] 3.9 g/dL 3.5-5.7 [facility] Alkaline phosphatase [Enzyma tic activity/volume] in Serum or PlasmaOrdered By: Estela Varma on 06-25-2023 ALP [Catalytic activity/Vol] 126 U/L High 34-104 [facility] Comment on above: Performed By: #### C BC, MARILU, LIPASE, FE and TIBC, CEA, T4F, TSH3, YUSUF, [id number], CMP ####[facility]#### METH ####[facility] , Amylase [Enzymatic activity/ volume] in Serum or PlasmaOrdered By: Estela Varma on 06-25-2023 Amylase [Catalytic activity/Vol] 52 U/L Normal 29-103 [facility] Comment on above: Performed By: #### C BC, MARILU, LIPASE, FE and TIBC, CEA, T4F, TSH3, YUSUF, [id number], CMP ####[place] [address] [address]#### METH ####[facility] , Aspartate aminotransferase [ Enzymatic activity/volume] in Serum or PlasmaOrdered By: Estela Varma on 06-25-2023 AST [Catalytic activity/Vol] 30 U/L Normal 13-39 [facility] Comment on above: Performed By: #### C BC, MARILU, LIPASE, FE and TIBC, CEA, T4F, TSH3, YUSUF, [id number], CMP ####[address]#### METH ####[facility] , Automated basophil %Ordered By: Estela Varma on 06-25-2023 Basophils/100 WBC (Bld) 1.3 % Normal . [facility] Comment on above: Performed By: #### C BC, MARILU, LIPASE, FE and TIBC, CEA, T4F, TSH3, YUSUF, [id number], CMP ####[address]#### METH ####[facility] , Automated basophil countOrde red By: Estela Varma on 06-25-2023 Basophils (Bld) [#/Vol] 0.1 10*3/uL Normal 0.0-0.2 [facility] Comment on above: Result Comment: PERF ORMED BY: [facility] [address] [place] [address] PATHOLOGIST SPORTS DEVELOPMENT OFFICER CATY DELCID M.D. Performed By: #### C BC, MARILU, LIPASE, FE and TIBC, CEA, T4F, TSH3, YUSUF, [id number], CMP ####[address]#### METH ####[facility] , Automated blood monocyte cou ntOrdered By: Estela Varma on 06-25-2023 Monocytes (Bld) [#/Vol] 0.7 10*3/uL Normal 0.0-0.8 [facility] Comment on above: Performed By: #### C BC, MARILU, LIPASE, FE and TIBC, CEA, T4F, TSH3, YUSUF, [id number], CMP ####[address]#### METH ####[facility] , Automated eosinophil %Ordere d By: Estela Varma on 06-25-2023 Eosinophils/100 WBC (Bld) 2.5 % Normal . [facility] Comment on above: Performed By: #### C BC, MARILU, LIPASE, FE and TIBC, CEA, T4F, TSH3, YUSUF, [id number], CMP ####[address]#### METH ####[facility] , Automated eosinophil countOr dered By: Estela Varma on 06-25-2023 Eosinophils (Bld) [#/Vol] 0.2 10*3/uL Normal 0.0-0.45 [facility] Comment on above: Performed By: #### C BC, MARILU, LIPASE, FE and TIBC, CEA, T4F, TSH3, YUSUF, [id number], CMP ####[address]#### METH ####[facility] , Automated monocyte %Ordered By: Estela Varma on 06-25-2023 Monocytes/100 WBC (Bld) 8.7 % Normal . [facility] Comment on above: Performed By: #### C BC, MARILU, LIPASE, FE and TIBC, CEA, T4F, TSH3, YUSUF, [id number], CMP ####[place] [address] [place]#### METH ####[facility] , Automated neutrophil %Ordere d By: Estela Varma on 06-25-2023 Neutrophils/100 WBC (Bld) 78.2 % Normal . [facility] Comment on above: Performed By: #### C BC, MARILU, LIPASE, FE and TIBC, CEA, T4F, TSH3, YUSUF, [id number], CMP ####[facility]#### METH ####[facility] , Bilirubin.total [Mass/volume ] in Serum or PlasmaOrdered By: Estela Varma on 06-25-2023 Bilirubin [Mass/Vol] 1.0 mg/dL Normal 0.3-1.0 [facility] Comment on above: Performed By: #### C BC, MARILU, LIPASE, FE and TIBC, CEA, T4F, TSH3, YUSUF, [id number], CMP ####[facility]#### METH ####[facility] , CARCINOEMBRYONIC ANTIGENon 0 06-25-2023 Interpretation and review of laboratory results Abnormal [facility] CBC W Auto Differential pane l (Bld)on 06-25-2023 Basophils (Bld) [#/Vol] 0.1 10*3/uL 0.0 - 0.2 10*3/uL [facility] Basophils/100 WBC Manual cnt (Syn fld) 1.3 % . [facility] Eosinophils (Bld) [#/Vol] 0.2 10*3/uL 0.0 - 0.45 10*3/uL [facility] Eosinophils/100 WBC Manual cnt (Syn fld) 2.5 % . [facility] Erythrocyte distribution width (RBC) [Ratio] 15.5 % High 12.0 - 14.8 % [facility] Hematocrit (Bld) [Volume fraction] 40.7 % 38.8 - 50.0 % [facility] Hemoglobin (Bld) [Mass/Vol] 13.7 g/dL 13.0 - 17.0 g/dL [facility] Interpretation and review of laboratory results Abnormal [facility] Lymphocytes (Bld) [#/Vol] 0.8 10*3/uL Low 1.00 - 4.8 10*3/uL [facility] Lymphocytes/100 WBC Manual cnt (Syn fld) 9.3 % . [facility] MCH (RBC) [Entitic mass] 32.9 pg 27.5 - 35.2 pg [facility] MCHC (RBC) [Mass/Vol] 33.7 g/dL 32.5 - 35.6 g/dL [facility] MCV (RBC) [Entitic vol] 97.6 fL 83.5 - 101 fL [facility] Monocytes (Bld) [#/Vol] 0.7 10*3/uL 0.0 - 0.8 10*3/uL [facility] Monocytes+Macrophages /100 WBC Manual cnt (Syn fld) 8.7 % . [facility] Neutrophils (Bld) [#/Vol] 6.5 10*3/uL 1.8 - 7.7 10*3/uL [facility] Neutrophils/100 WBC Manual cnt (Syn fld) 78.2 % . [facility] NRBC 0.2 /100{WBC} 0 - 0.5 /100{WBC} [facility] Platelet mean volume (Bld) [Entitic vol] 7.4 fL 6.6 - 10.1 fL [facility] Platelets (Bld) [#/Vol] 196 10*3/uL 150 - 450 10*3/uL [facility] RBC LM.HPF (Urine sed) [#/Area] 4.17 /[HPF] 3.90 - 5.60 [facility] WBC (Bld) [#/Vol] 8.4 10*3/uL 4.1 - 10.5 10*3/uL [facility] WBC LM.HPF (Urine sed) [#/Area] 8.4 10*3/uL 4.1 - 10.5 10*3/uL [facility] Calcium [Mass/volume] in Ser um or PlasmaOrdered By: Estela Varma on 06-25-2023 Calcium [Mass/Vol] 8.7 mg/dL Normal 8.6-10.3 [facility] Comment on above: Performed By: #### C BC, MARILU, LIPASE, FE and TIBC, CEA, T4F, TSH3, YUSUF, [id number], CMP ####[facility] [address]#### METH ####[facility] , Capillary blood glucose ledy urement by glucometer (mass/volume)Ordered By: Estela Varma on 06-25-2023 Glucose [Mass/Vol] 97 mg/dL Normal [facility] Comment on above: Random Glucose Refer ence Range is dependent on time and content of last meal. Glucose of more than 200 mg/dL in a nonstressed, ambulatory subject supports the diagnosis of Diabetes Mellitus. Result Comment: [place] om Glucose Reference Range is dependent on time and content of last meal. Glucose of more than 200 mg/dL in a nonstressed, ambulatory subject supports the diagnosis of Diabetes Mellitus. PERFORMED BY: [facility] [address] [place] [address] PATHOLOGIST SPORTS DEVELOPMENT OFFICER CATY DELCID M.D. Performed By: #### G LUREHAN ####Point of Care testing, Carbon dioxide, total [Moles /volume] in Serum or PlasmaOrdered By: Estela Varma on 06-25-2023 CO2 [Moles/Vol] 23.2 mmol/L Normal 21.0-31.0 [facility] Comment on above: Performed By: #### C BC, MARILU, LIPASE, FE and TIBC, CEA, T4F, TSH3, YUSUF, [id number], CMP ####[place] [address] [address]#### METH ####[facility] , Chloride [Moles/volume] in S coral or PlasmaOrdered By: Estela Varma on 06-25-2023 Chloride [Moles/Vol] 96 mmol/L Low 98-107 [facility] Comment on above: Performed By: #### C BC, MARILU, LIPASE, FE and TIBC, CEA, T4F, TSH3, YUSUF, [id number], CMP ####[place] [address] [place]#### METH ####[facility] , Complete Blood Count Auto Di ffon 06-25-2023 Mean Corpuscular HGB Conc 33.7 g/dL Normal 32.5-35.6 [facility] Comment on above: Performed By: #### C BC, MARILU, LIPASE, FE and TIBC, CEA, T4F, TSH3, YUSUF, [id number], CMP ####[place] [address] [place]#### METH ####[facility] , NRBC% 0.2 /100{WBC} Normal 0-0.5 [facility] Comment on above: Performed By: #### C BC, MARILU, LIPASE, FE and TIBC, CEA, T4F, TSH3, YUSUF, [id number], CMP ####[place] [address] [place]#### METH ####[facility] , Comprehensive Metabolic Pane nicolas 06-25-2023 Albumin [Mass/Vol] 3.9 g/dL Normal 3.5-5.7 [facility] Comment on above: Performed By: #### C BC, MARILU, LIPASE, FE and TIBC, CEA, T4F, TSH3, YUSUF, [id number], CMP ####[place] [address] [place]#### METH ####[facility] , Creatinine Clr Calc Pharmacy 108.93 Normal [facility] Comment on above: Performed By: #### C BC, MARILU, LIPASE, FE and TIBC, CEA, T4F, TSH3, YUSUF, [id number], CMP ####[place] [address] [place]#### METH ####[facility] , GFR/1.73 sq M.predicted MDRD (S/P/Bld) [Vol rate/Area] mL/min/{1.73_m2} Normal [facility] Comment on above: Performed By: #### C BC, MARILU, LIPASE, FE and TIBC, CEA, T4F, TSH3, YUSUF, [id number], CMP ####[place] [address] [place]#### METH ####[facility] , Creatinine [Mass/volume] in Serum or PlasmaOrdered By: Estela Varma on 06-25-2023 Creatinine [Mass/Vol] 0.70 mg/dL Normal 0.70-1.30 [facility] Comment on above: Performed By: #### C BC, MARILU, LIPASE, FE and TIBC, CEA, T4F, TSH3, YUSUF, [id number], CMP ####[address]#### METH ####[facility] , Erythrocyte distribution wid th [Ratio] by Automated countOrdered By: Estela Varma on 06-25-2023 Erythrocyte distribution width (RBC) [Ratio] 15.5 % High 12.0-14.8 [facility] Comment on above: Performed By: #### C BC, MARILU, LIPASE, FE and TIBC, CEA, T4F, TSH3, YUSUF, [id number], CMP ####[address]#### METH ####[facility] , Erythrocytes [#/volume] in B lood by Automated countOrdered By: Estela Varma on 06-25-2023 RBC (Bld) [#/Vol] 4.17 10*6/uL Normal 3.90-5.60 [facility] Comment on above: Performed By: #### C BC, MARILU, LIPASE, FE and TIBC, CEA, T4F, TSH3, YUSUF, [id number], CMP ####[address]#### METH ####[facility] , Ferritin [Mass/volume] in Se rum or PlasmaOrdered By: Estela Varma on 06-25-2023 Ferritin [Mass/Vol] 207.7 ng/mL Normal 23.9-336.2 [facility] Comment on above: Performed By: #### C BC, MARILU, LIPASE, FE and TIBC, CEA, T4F, TSH3, YUSUF, [id number], CMP ####[facility] [id number] [place] [id number] [place]#### METH ####[facility] , Folate [Mass/volume] in Seru m or PlasmaOrdered By: Estela Varma on 06-25-2023 Folate [Mass/Vol] 9.6 ng/mL >5.9 [facility] Comment on above: Folate reference ran ge: >5.9 ng/mlThe WHO technical consultation on folate and vitamin [id number] has determined that folate concentrations lessthan 4 ng/ml are considered deficient. GLUCOSE POCT GLUCOMETERSon 0 06-25-2023 Glucose [Mass/Vol] 97 mg/dL [facility] Comment on above: Random Glucose Refer ence Range is dependent on time and content of last meal. Glucose of more than 200 mg/dL in a nonstressed, ambulatory subject supports the diagnosis of Diabetes Mellitus. [facility] Glucose [Mass/volume] in Ser um or PlasmaOrdered By: Estela Varma on 06-25-2023 Glucose [Mass/Vol] 89 mg/dL Normal 70-100 [facility] Comment on above: ADA recommended refe rence rangeRandom Glucose Reference Range is dependent on time and content of last meal. Glucose of more than 200 mg/dL in a nonstressed, ambulatory subject supports the diagnosis of Diabetes Mellitus. Result Comment: [place] om Glucose Reference Range is dependent on time and content of last meal. Glucose of more than 200 mg/dL in a nonstressed, ambulatory subject supports the diagnosis of Diabetes Mellitus. ADA recommended reference range Performed By: #### C BC, MARILU, LIPASE, FE and TIBC, CEA, T4F, TSH3, YUSUF, [id number], CMP ####[facility] [address] [place] [id number] [place]#### METH ####[facility] , Hematocrit [Volume Fraction] of Blood by Automated countOrdered By: Estela Varma on 06-25-2023 Hematocrit (Bld) [Volume fraction] 40.7 % Normal 38.8-50.0 [facility] Comment on above: Performed By: #### C BC, MARILU, LIPASE, FE and TIBC, CEA, T4F, TSH3, YUSUF, [id number], CMP ####[address]#### METH ####[facility] , Hemoglobin [Mass/volume] in BloodOrdered By: Estela Varma on 06-25-2023 Hemoglobin (Bld) [Mass/Vol] 13.7 g/dL Normal 13.0-17.0 [facility] Comment on above: Performed By: #### C BC, MARILU, LIPASE, FE and TIBC, CEA, T4F, TSH3, YUSUF, [id number], CMP ####[address]#### METH ####[facility] , Iron [Mass/volume] in Serum or PlasmaOrdered By: Estela Varma on 06-25-2023 Iron [Mass/Vol] 159 ug/dL Normal 50-212 [facility] Comment on above: Performed By: #### C BC, MARILU, LIPASE, FE and TIBC, CEA, T4F, TSH3, YUSUF, [id number], CMP ####[address]#### METH ####[facility] , Iron and TIBC Profileon 06-14 % Iron Saturation 65.7 % High 20-50 [facility] Comment on above: Performed By: #### C BC, MARILU, LIPASE, FE and TIBC, CEA, T4F, TSH3, YUSUF, [id number], CMP ####[place] [address] [place]#### METH ####[facility] , Total Iron Binding Capacity 242 ug/dL Low 255-450 [facility] Comment on above: Performed By: #### C BC, MARILU, LIPASE, FE and TIBC, CEA, T4F, TSH3, YUSUF, [id number], CMP ####[facility] [place] [id number] [facility]#### METH ####[facility] , Iron binding capacity [Mass/ volume] in Serum or PlasmaOrdered By: Estela Varma on 06-25-2023 Iron binding capacity [Mass/Vol] 242 ug/dL 255-450 [facility] Iron saturation [Mass Fracti on] in Serum or PlasmaOrdered By: Estela Varma on 06-25-2023 Iron saturation [Mass fraction] 65.7 % 20-50 [facility] Leukocytes [#/volume] correc chris for nucleated erythrocytes in Blood by Automated counOrdered By: Estela Varma on 06-25-2023 WBC corrected for nucl RBC Auto (Bld) [#/Vol] 8.4 10*3/uL 4.1-10.5 [facility] Leukocytes [#/volume] in Blo od by Automated countOrdered By: Estela Varma on 06-25-2023 WBC (Bld) [#/Vol] 8.4 10*3/uL Normal 4.1-10.5 [facility] Comment on above: Performed By: #### C BC, MARILU, LIPASE, FE and TIBC, CEA, T4F, TSH3, YUSUF, [id number], CMP ####[facility] [place] [id number] [facility]#### METH ####[facility] , Lipase [Enzymatic activity/v olume] in Serum or PlasmaOrdered By: Estela Varma on 06-25-2023 Lipase [Catalytic activity/Vol] 36.0 U/L Normal 11.0-82.0 [facility] Comment on above: Performed By: #### C BC, MARILU, LIPASE, FE and TIBC, CEA, T4F, TSH3, YUSUF, [id number], CMP ####[facility] [place] [id number] [facility]#### METH ####[facility] , Lymphocytes [#/volume] in Bl ood by Automated countOrdered By: Estela Varma on 06-25-2023 Lymphocytes (Bld) [#/Vol] 0.8 10*3/uL Low 1.00-4.8 [facility] Comment on above: Performed By: #### C BC, MARILU, LIPASE, FE and TIBC, CEA, T4F, TSH3, YUSUF, [id number], CMP ####[address]#### METH ####[facility] , Lymphocytes/100 leukocytes i n Blood by Automated countOrdered By: Estela Varma on 06-25-2023 Lymphocytes/100 WBC (Bld) 9.3 % Normal . [facility] Comment on above: Performed By: #### C BC, MARILU, LIPASE, FE and TIBC, CEA, T4F, TSH3, YUSUF, [id number], CMP ####[address]#### METH ####[facility] , MCH [Entitic mass] by Automa chris countOrdered By: Estela Varma on 06-25-2023 MCH (RBC) [Entitic mass] 32.9 pg Normal 27.5-35.2 [facility] Comment on above: Performed By: #### C BC, MARILU, LIPASE, FE and TIBC, CEA, T4F, TSH3, YUSUF, [id number], CMP ####[place] [address] [place]#### METH ####[facility] , MCHC Auto (RBC) [Mass/Vol]Or dered By: Estela Varma on 06-25-2023 MCHC (RBC) [Mass/Vol] 33.7 g/dL 32.5-35.6 [facility] MCV [Entitic volume] by Auto mated countOrdered By: Estela Varma on 06-25-2023 MCV (RBC) [Entitic vol] 97.6 fL Normal 83.5-101 [facility] Comment on above: Performed By: #### C BC, MARILU, LIPASE, FE and TIBC, CEA, T4F, TSH3, YUSUF, [id number], CMP ####[place] [address] [address]#### METH ####[facility] , Methylmalonic Acidon 024 Methylmalonic Acid 115 Normal 0-378 [facility] Comment on above: Result Comment: This test was developed and its performance characteristics determined by [facility]. It has not been cleared or approved by the Food and Drug Administration. Performed at: [address] [id number] Associate Professor: Loc De Jesus MD, Phone: [phone] PERFORMED BY: [facility] [address] [place] [address] PATHOLOGIST SPORTS DEVELOPMENT OFFICER CATY DELCID M.D. Performed By: #### C BC, MARILU, LIPASE, FE and TIBC, CEA, T4F, TSH3, YUSUF, [id number], CMP ####[address]#### METH ####[facility] , Neutrophils [#/volume] in Bl ood by Automated countOrdered By: Estela Varma on 06-25-2023 Neutrophils (Bld) [#/Vol] 6.5 10*3/uL Normal 1.8-7.7 [facility] Comment on above: Performed By: #### C BC, MARILU, LIPASE, FE and TIBC, CEA, T4F, TSH3, YUSUF, [id number], CMP ####[place] [address] [place]#### METH ####[facility] , No Panel InformationOrdered By: Estela Varma on 06-25-2023 Estimated GFR (CKD-EPI) > 60.0 mL/Min [facility] Creatinine Clearance (Chem 108.93 [facility] Nucleated erythrocytes [Pres ence] in Blood by Automated countOrdered By: Estela Varma on 06-25-2023 Nucleated RBC Auto Ql (Bld) 0.2 /100{WBC} 0-0.5 [facility] PET tumor subq tx strat sb-m ton 06-25-2023 PET tumor subq tx strat sb-mt [facility] [place] [address] [place] [address] Nuclear Medicine Report Signed Patient: Kirill Echols MR#: [id number] : 1965 Acct:[id number] Age/Sex: 58 / M ADM Date: 06/25/23 Loc: Room: Type: [facility] RCR Attending Dr: Estela Varma II [...] Ellison Jr., D.O.06/25/2023 10:28 AM Dictation Location: [place] [address] Transcribed By: MARU 06/25/23 1028 Dictated By: Victorino Ellison Jr, DO 06/25/23 1017 Signed By: 06/25/23 1028 Normal [facility] Platelet mean volume [Entiti c volume] in Blood by Automated countOrdered By: Estela Varma on 06-25-2023 Platelet mean volume (Bld) [Entitic vol] 7.4 fL Normal 6.6-10.1 [facility] Comment on above: Performed By: #### C BC, MARILU, LIPASE, FE and TIBC, CEA, T4F, TSH3, YUSUF, [id number], CMP ####[address]#### METH ####[facility] , Platelets [#/volume] in Bloo d by Automated countOrdered By: Estela Varma on 06-25-2023 Platelets (Bld) [#/Vol] 196 10*3/uL Normal 150-450 [facility] Comment on above: Performed By: #### C BC, MARILU, LIPASE, FE and TIBC, CEA, T4F, TSH3, YUSUF, [id number], CMP ####[address]#### METH ####[facility] , Potassium [Moles/volume] in Serum or PlasmaOrdered By: Estela Varma on 06-25-2023 Potassium [Moles/Vol] 4.2 mmol/L Normal 3.5-5.1 [facility] Comment on above: Performed By: #### C BC, MARILU, LIPASE, FE and TIBC, CEA, T4F, TSH3, YUSUF, [id number], CMP ####[address]#### METH ####[facility] , Protein [Mass/volume] in Ser um or PlasmaOrdered By: Estela Varma on 06-25-2023 Protein [Mass/Vol] 6.9 g/dL Normal 6.4-8.9 [facility] Comment on above: Performed By: #### C BC, MARILU, LIPASE, FE and TIBC, CEA, T4F, TSH3, YUSUF, [id number], CMP ####[facility]#### METH ####[facility] , Serum globulin measurement b y calculation (mass/volume)Ordered By: Estela Varma on 06-25-2023 Globulin (S) [Mass/Vol] 3.0 g/dL [facility] Comment on above: Performed By: #### C BC, MARILU, LIPASE, FE and TIBC, CEA, T4F, TSH3, YUSUF, [id number], CMP ####[address]#### METH ####[facility] , Serum or plasma albumin/glob ulin mass ratioOrdered By: Estela Varma on 06-25-2023 Albumin/Globulin [Mass ratio] 1.3 {ratio} [facility] Comment on above: Performed By: #### C BC, MARILU, LIPASE, FE and TIBC, CEA, T4F, TSH3, YUSUF, [id number], CMP ####[address]#### METH ####[facility] , Serum or plasma anion gap de terminationOrdered By: Estela Varma on 06-25-2023 Anion gap [Moles/Vol] 11.0 mmol/L Normal 6.0-15.0 [facility] Comment on above: Performed By: #### C BC, MARILU, LIPASE, FE and TIBC, CEA, T4F, TSH3, YUSUF, [id number], CMP ####[place] [address] [place]#### METH ####[facility] , Serum or plasma carcinoembry onic antigen measurement (mass/volume)Ordered By: Estela Varma on 06-25-2023 Carcinoembryonic Ag [Mass/Vol] 9.4 ng/mL 0.0-3.0 [facility] Comment on above: Serial tumor marker results determined by assays using different manufacturers or methods may not be comparable.[facility] sky line yarder and method:VALENTINE UNICEL DXI, 2 SITE IMMUNOENZYMATIC SANDWICH ASSAY. Sodium [Moles/volume] in Ser um or PlasmaOrdered By: Estela Varma on 06-25-2023 Sodium [Moles/Vol] 126 mmol/L Low 136-145 [facility] Comment on above: Performed By: #### C BC, MARILU, LIPASE, FE and TIBC, CEA, T4F, TSH3, YUSUF, [id number], CMP ####[address]#### METH ####[facility] , Thyrotropin [Units/volume] i n Serum or PlasmaOrdered By: Estela Varma on 06-25-2023 TSH Qn 9.92 m[IU]/L High 0.45-5.33 [facility] Comment on above: Result Comment: PERF ORMED BY: [facility] [address] [place] [address] PATHOLOGIST [employer] DEVELOPMENT OFFICER CATY DELCID M.D. Performed By: #### C BC, MARILU, LIPASE, FE and TIBC, CEA, T4F, TSH3, YUSUF, [id number], CMP ####[address]#### METH ####[facility] , Thyroxine (T4) free [Mass/vo lume] in Serum or PlasmaOrdered By: Estela Varma on 06-25-2023 Free T4 [Mass/Vol] 0.71 ng/dL Normal 0.61-1.12 [facility] Comment on above: Performed By: #### C BC, MARILU, LIPASE, FE and TIBC, CEA, T4F, TSH3, YUSUF, [id number], CMP ####[place] [address] [place]#### METH ####[facility] , Transferrin [Mass/volume] in Serum or PlasmaOrdered By: Estela Varma on 06-25-2023 Transferrin [Mass/Vol] 173 mg/dL Low 203-362 [facility] Comment on above: Performed By: #### C BC, MARILU, LIPASE, FE and TIBC, CEA, T4F, TSH3, YUSUF, [id number], CMP ####[address]#### METH ####[facility] , Urea nitrogen [Mass/volume] in Serum or PlasmaOrdered By: Estela Varma on 06-25-2023 Urea nitrogen [Mass/Vol] 5 mg/dL Low 7-25 [facility] Comment on above: Performed By: #### C BC, MARILU, LIPASE, FE and TIBC, CEA, T4F, TSH3, YUSUF, [id number], CMP ####[address]#### METH ####[facility] , Vit. B12/Folate Profileon Folate 9.6 ng/mL Normal >5.9 [facility] Comment on above: Result Comment: Estrella te reference range: >5.9 ng/ml The WHO technical consultation on folate and vitamin b12 deficiencies has determined that folate concentrations less than 4 ng/ml are considered deficient. Performed By: #### C BC, MARILU, LIPASE, FE and TIBC, CEA, T4F, TSH3, YUSUF, [id number], CMP ####[place] [address] [place]#### METH ####[facility] , Vitamin B12 ser/plasOrdered By: Estela Varma on 06-25-2023 Cobalamin (Vitamin B12) [Mass/Vol] 309 pg/mL Normal 180-914 [facility] Comment on above: Performed By: #### C BC, MARILU, LIPASE, FE and TIBC, CEA, T4F, TSH3, YUSUF, [id number], CMP ####[place] [address] [place]#### METH ####[facility] , Amylaseon 03-30-2023 Amylase [Catalytic activity/Vol] 48 U/L Normal 29-103 [facility] Comment on above: Performed By: #### C EA, CBC, FOL, B12, CMP, FE and TIBC, LIPASE, MARILU, T4F #### [address] #### METH #### [facility] , Complete Blood Count Auto Di ffon 03-30-2023 Basophils (Bld) [#/Vol] 0.0 10*3/uL Normal 0.0-0.2 [facility] Comment on above: Result Comment: PERF ORMED BY: [place] [address] PATHOLOGIST [employer] DEVELOPMENT OFFICER CATY DELCID M.D. Performed By: #### C EA, CBC, FOL, B12, CMP, FE and TIBC, LIPASE, MARILU, T4F #### [address] #### METH #### [facility] , Basophils/100 WBC (Bld) 0.6 % Normal . [facility] Comment on above: Performed By: #### C EA, CBC, FOL, B12, CMP, FE and TIBC, LIPASE, MARILU, T4F #### [place] [address] [place] #### METH #### [facility] , Eosinophils (Bld) [#/Vol] 0.2 10*3/uL Normal 0.0-0.45 [facility] Comment on above: Performed By: #### C EA, CBC, FOL, B12, CMP, FE and TIBC, LIPASE, MARILU, T4F #### [place] [address] [place] #### METH #### [facility] , Eosinophils/100 WBC (Bld) 4.8 % Normal . [facility] Comment on above: Performed By: #### C EA, CBC, FOL, B12, CMP, FE and TIBC, LIPASE, MARILU, T4F #### [address] #### METH #### [facility] , Erythrocyte distribution width (RBC) [Ratio] 15.7 % High 12.0-14.8 [facility] Comment on above: Performed By: #### C EA, CBC, FOL, B12, CMP, FE and TIBC, LIPASE, MARILU, T4F #### [address] #### METH #### [facility] , Hematocrit (Bld) [Volume fraction] 39.3 % Normal 38.8-50.0 [facility] Comment on above: Performed By: #### C EA, CBC, FOL, B12, CMP, FE and TIBC, LIPASE, MARILU, T4F #### [place] [address] [place] #### METH #### [facility] , Hemoglobin (Bld) [Mass/Vol] 13.3 g/dL Normal 13.0-17.0 [facility] Comment on above: Performed By: #### C EA, CBC, FOL, B12, CMP, FE and TIBC, LIPASE, MARILU, T4F #### [address] #### METH #### [facility] , Lymphocytes (Bld) [#/Vol] 0.8 10*3/uL Low 1.00-4.8 [facility] Comment on above: Performed By: #### C EA, CBC, FOL, B12, CMP, FE and TIBC, LIPASE, MARILU, T4F #### [address] #### METH #### [facility] , Lymphocytes/100 WBC (Bld) 14.7 % Normal . [facility] Comment on above: Performed By: #### C EA, CBC, FOL, B12, CMP, FE and TIBC, LIPASE, MARILU, T4F #### [address] #### METH #### [facility] , MCH (RBC) [Entitic mass] 33.1 pg Normal 27.5-35.2 [facility] Comment on above: Performed By: #### C EA, CBC, FOL, B12, CMP, FE and TIBC, LIPASE, MARILU, T4F #### [address] #### METH #### [facility] , MCV (RBC) [Entitic vol] 98.1 fL Normal 83.5-101 [facility] Comment on above: Performed By: #### C EA, CBC, FOL, B12, CMP, FE and TIBC, LIPASE, MARILU, T4F #### [address] #### METH #### [facility] , Mean Corpuscular HGB Conc 33.8 g/dL Normal 32.5-35.6 [facility] Comment on above: Performed By: #### C EA, CBC, FOL, B12, CMP, FE and TIBC, LIPASE, MARILU, T4F #### [address] #### METH #### [facility] , Monocytes (Bld) [#/Vol] 0.6 10*3/uL Normal 0.0-0.8 [facility] Comment on above: Performed By: #### C EA, CBC, FOL, B12, CMP, FE and TIBC, LIPASE, MARILU, T4F #### [place] [address] [place] #### METH #### [facility] , Monocytes/100 WBC (Bld) 12.2 % Normal . [facility] Comment on above: Performed By: #### C EA, CBC, FOL, B12, CMP, FE and TIBC, LIPASE, MARILU, T4F #### [address] #### METH #### [facility] , Neutrophils (Bld) [#/Vol] 3.5 10*3/uL Normal 1.8-7.7 [facility] Comment on above: Performed By: #### C EA, CBC, FOL, B12, CMP, FE and TIBC, LIPASE, MARILU, T4F #### [address] #### METH #### [facility] , Neutrophils/100 WBC (Bld) 67.7 % Normal . [facility] Comment on above: Performed By: #### C EA, CBC, FOL, B12, CMP, FE and TIBC, LIPASE, MARILU, T4F #### [address] #### METH #### [facility] , NRBC% 0.1 /100{WBC} Normal 0-0.5 [facility] Comment on above: Performed By: #### C EA, CBC, FOL, B12, CMP, FE and TIBC, LIPASE, MARILU, T4F #### [address] #### METH #### [facility] , Platelet mean volume (Bld) [Entitic vol] 7.3 fL Normal 6.6-10.1 [facility] Comment on above: Performed By: #### C EA, CBC, FOL, B12, CMP, FE and TIBC, LIPASE, MARILU, T4F #### [place] [address] [place] #### METH #### [facility] , Platelets (Bld) [#/Vol] 155 10*3/uL Normal 150-450 [facility] Comment on above: Performed By: #### C EA, CBC, FOL, B12, CMP, FE and TIBC, LIPASE, MARILU, T4F #### [place] [address] [place] #### METH #### [facility] , RBC (Bld) [#/Vol] 4.00 10*6/uL Normal 3.90-5.60 [facility] Comment on above: Performed By: #### C EA, CBC, FOL, B12, CMP, FE and TIBC, LIPASE, MARILU, T4F #### [address] #### METH #### [facility] , WBC (Bld) [#/Vol] 5.2 10*3/uL Normal 4.1-10.5 [facility] Comment on above: Performed By: #### C EA, CBC, FOL, B12, CMP, FE and TIBC, LIPASE, MARILU, T4F #### [address] #### METH #### [facility] , Comprehensive Metabolic Pane nicolas 03-30-2023 Albumin [Mass/Vol] 3.9 g/dL Normal 3.5-5.7 [facility] Comment on above: Performed By: #### C EA, CBC, FOL, B12, CMP, FE and TIBC, LIPASE, MARILU, T4F #### [address] #### METH #### [facility] , Albumin/Globulin [Mass ratio] 1.3 {ratio} Normal [facility] Comment on above: Performed By: #### C EA, CBC, FOL, B12, CMP, FE and TIBC, LIPASE, MARILU, T4F #### [place] [address] [place] #### METH #### [facility] , ALP [Catalytic activity/Vol] 136 U/L High 34-104 [facility] Comment on above: Performed By: #### C EA, CBC, FOL, B12, CMP, FE and TIBC, LIPASE, MARILU, T4F #### [place] [address] [place] #### METH #### [facility] , ALT [Catalytic activity/Vol] 11 U/L Normal 7-52 [facility] Comment on above: Performed By: #### C EA, CBC, FOL, B12, CMP, FE and TIBC, LIPASE, MARILU, T4F #### [place] [address] [place] #### METH #### [facility] , Anion gap [Moles/Vol] 10.4 mmol/L Normal 6.0-15.0 [facility] Comment on above: Performed By: #### C EA, CBC, FOL, B12, CMP, FE and TIBC, LIPASE, MARILU, T4F #### [place] [address] [place] #### METH #### [facility] , AST [Catalytic activity/Vol] 18 U/L Normal 13-39 [facility] Comment on above: Performed By: #### C EA, CBC, FOL, B12, CMP, FE and TIBC, LIPASE, MARILU, T4F #### [place] [address] [place] #### METH #### [facility] , Bilirubin [Mass/Vol] 0.7 mg/dL Normal 0.3-1.0 [facility] Comment on above: Performed By: #### C EA, CBC, FOL, B12, CMP, FE and TIBC, LIPASE, MARILU, T4F #### [place] [address] [place] #### METH #### [facility] , Calcium [Mass/Vol] 8.5 mg/dL Low 8.6-10.3 [facility] Comment on above: Performed By: #### C EA, CBC, FOL, B12, CMP, FE and TIBC, LIPASE, MARILU, T4F #### [place] [address] [place] #### METH #### [facility] , Chloride [Moles/Vol] 102 mmol/L Normal 98-107 [facility] Comment on above: Performed By: #### C EA, CBC, FOL, B12, CMP, FE and TIBC, LIPASE, MARILU, T4F #### [place] [address] [place] #### METH #### [facility] , CO2 [Moles/Vol] 21.7 mmol/L Normal 21.0-31.0 [facility] Comment on above: Performed By: #### C EA, CBC, FOL, B12, CMP, FE and TIBC, LIPASE, MARILU, T4F #### [address] #### METH #### [facility] , Creatinine [Mass/Vol] 0.80 mg/dL Normal 0.70-1.30 [facility] Comment on above: Performed By: #### C EA, CBC, FOL, B12, CMP, FE and TIBC, LIPASE, MARILU, T4F #### [place] [address] [place] #### METH #### [facility] , Creatinine Clr Calc Pharmacy 96.47 Normal [facility] Comment on above: Performed By: #### C EA, CBC, FOL, B12, CMP, FE and TIBC, LIPASE, MARILU, T4F #### [place] [address] [place] #### METH #### [facility] , GFR/1.73 sq M.predicted MDRD (S/P/Bld) [Vol rate/Area] mL/min/{1.73_m2} Normal [facility] Comment on above: Performed By: #### C EA, CBC, FOL, B12, CMP, FE and TIBC, LIPASE, MARILU, T4F #### [place] [address] [place] #### METH #### [facility] , Globulin (S) [Mass/Vol] 2.9 g/dL Normal [facility] Comment on above: Performed By: #### C EA, CBC, FOL, B12, CMP, FE and TIBC, LIPASE, MARILU, T4F #### [place] [address] [place] #### METH #### [facility] , Glucose [Mass/Vol] 84 mg/dL Normal 70-100 [facility] Comment on above: Result Comment: [facility] Glucose Reference Range is dependent on time and content of last meal. Glucose of more than 200 mg/dL in a nonstressed, ambulatory subject supports the diagnosis of Diabetes Mellitus. ADA recommended reference range Performed By: #### C EA, CBC, FOL, B12, CMP, FE and TIBC, LIPASE, MARILU, T4F #### [place] [address] [place] #### METH #### [facility] , Potassium [Moles/Vol] 4.1 mmol/L Normal 3.5-5.1 [facility] Comment on above: Performed By: #### C EA, CBC, FOL, B12, CMP, FE and TIBC, LIPASE, MARILU, T4F #### [place] [address] [place] #### METH #### [facility] , Protein [Mass/Vol] 6.8 g/dL Normal 6.4-8.9 [facility] Comment on above: Performed By: #### C EA, CBC, FOL, B12, CMP, FE and TIBC, LIPASE, MARILU, T4F #### [place] [address] [place] #### METH #### [facility] , Sodium [Moles/Vol] 130 mmol/L Low 136-145 [facility] Comment on above: Performed By: #### C EA, CBC, FOL, B12, CMP, FE and TIBC, LIPASE, MARILU, T4F #### [place] [address] [place] #### METH #### [facility] , Urea nitrogen [Mass/Vol] 5 mg/dL Low 7-25 [facility] Comment on above: Performed By: #### C EA, CBC, FOL, B12, CMP, FE and TIBC, LIPASE, MARILU, T4F #### [address] #### METH #### [facility] , Folateon 03-30-2023 Folate 15.4 ng/mL Normal >5.9 [facility] Comment on above: Result Comment: Estrella te reference range: >5.9 ng/ml The WHO technical consultation on folate and vitamin b12 deficiencies has determined that folate concentrations less than 4 ng/ml are considered deficient. Performed By: #### C EA, CBC, FOL, B12, CMP, FE and TIBC, LIPASE, MARILU, T4F #### [address] #### METH #### [facility] , Free T4 (Free Thyroxine)on 05-30-2022 Free T4 [Mass/Vol] 0.50 ng/dL Low 0.61-1.12 [facility] Comment on above: Result Comment: PERF ORMED BY: [place] [address] PATHOLOGIST [employer] DEVELOP[employer] OFFICER CATY DELCID M.D. Performed By: #### C EA, CBC, FOL, B12, CMP, FE and TIBC, LIPASE, MARILU, T4F ####[facility] [place] [address] [place]#### METH ####[facility] , Iron and TIBC Profileon 03-14 % Iron Saturation 67.5 % High 20-50 [facility] Comment on above: Performed By: #### C EA, CBC, FOL, B12, CMP, FE and TIBC, LIPASE, MARILU, T4F #### [place] [address] [place] #### METH #### [facility] , Iron [Mass/Vol] 154 ug/dL Normal 50-212 [facility] Comment on above: Performed By: #### C EA, CBC, FOL, B12, CMP, FE and TIBC, LIPASE, MARILU, T4F #### [place] [address] [place] #### METH #### [facility] , Total Iron Binding Capacity 228 ug/dL Low 255-450 [facility] Comment on above: Performed By: #### C EA, CBC, FOL, B12, CMP, FE and TIBC, LIPASE, MARILU, T4F #### [address] #### METH #### [facility] , Transferrin [Mass/Vol] 163 mg/dL Low 203-362 [facility] Comment on above: Performed By: #### C EA, CBC, FOL, B12, CMP, FE and TIBC, LIPASE, MARILU, T4F #### [place] [address] [place] #### METH #### [facility] , Lipaseon 03-30-2023 Lipase [Catalytic activity/Vol] 22.0 U/L Normal 11.0-82.0 [facility] Comment on above: Performed By: #### C EA, CBC, FOL, B12, CMP, FE and TIBC, LIPASE, MARILU, T4F #### [place] [address] [place] #### METH #### [facility] , Methylmalonic Acidon 023 Methylmalonic Acid 129 Normal 0-378 [facility] Comment on above: Result Comment: This test was developed and its performance characteristics determined by [facility]. It has not been cleared or approved by the Food and Drug Administration. Performed at: [address] [id number] Associate Professor: Loc De Jesus MD, Phone: [phone] PERFORMED BY: [place] [address] PATHOLOGIST [employer] DEVELOPMENT OFFICER CATY DELCID M.D. Performed By: #### C EA, CBC, FOL, B12, CMP, FE and TIBC, LIPASE, MARILU, T4F ####[address]#### METH ####[facility] , Serum or plasma methylmalona te measurement (moles/volume)Ordered By: Estela Varma on 03-30-2023 Methylmalonate [Moles/Vol] 129 nmol/L 0-378 [facility] Comment on above: This test was develo ped and its performance characteristicsdetermined by [facility]. It has not been cleared orapproved by the Food and Drug Administration.Performed at: [address] [id number] Director: Loc De Jesus MD, Phone: [phone] Vitamin B12on 03-30-2023 Cobalamin (Vitamin B12) [Mass/Vol] 462 pg/mL Normal 180-914 [facility] Comment on above: Performed By: #### C EA, CBC, FOL, B12, CMP, FE and TIBC, LIPASE, MARILU, T4F #### [address] #### METH #### [facility] , Alanine aminotransferase [En zymatic activity/volume] in Serum or PlasmaOrdered By: Estela Varma on 12-22-2022 ALT [Catalytic activity/Vol] 13 U/L Normal 7-52 [facility] Comment on above: Performed By: #### C MP, CBC ####[place] [address] [address] Albumin [Mass/volume] in Ser um or Plasma by Bromocresol green (BCG) dye binding methoOrdered By: Estela Varma on 12-22-2022 Albumin BCG dye [Mass/Vol] 3.7 g/dL 3.5-5.7 [facility] Alkaline phosphatase [Enzyma tic activity/volume] in Serum or PlasmaOrdered By: Estela Varma on 12-22-2022 ALP [Catalytic activity/Vol] 122 U/L High 34-104 [facility] Comment on above: Performed By: #### C MP, CBC ####[address] Aspartate aminotransferase [ Enzymatic activity/volume] in Serum or PlasmaOrdered By: Estela Varma on 12-22-2022 AST [Catalytic activity/Vol] 17 U/L Normal 13-39 [facility] Comment on above: Performed By: #### C MP, CBC ####[address] Automated basophil %Ordered By: Estela Varma on 12-22-2022 Basophils/100 WBC (Bld) 1.3 % Normal . [facility] Comment on above: Performed By: #### C MP, CBC ####[address] Automated basophil countOrde red By: Estela Varma on 12-22-2022 Basophils (Bld) [#/Vol] 0.1 10*3/uL Normal 0.0-0.2 [facility] Comment on above: Result Comment: PERF ORMED BY: [facility] [address] [place] [address] PATHOLOGIST [employer] DEVELOPMENT OFFICER CATY DELCID M.D. Performed By: #### C MP, CBC ####[address] Automated blood monocyte cou ntOrdered By: Estela Varma on 12-22-2022 Monocytes (Bld) [#/Vol] 0.5 10*3/uL Normal 0.0-0.8 [facility] Comment on above: Performed By: #### C MP, CBC ####[address] Automated eosinophil %Ordere d By: Estela Varma on 12-22-2022 Eosinophils/100 WBC (Bld) 5.0 % Normal . [facility] Comment on above: Performed By: #### C MP, CBC ####[address] Automated eosinophil countOr dered By: Estela Varma on 12-22-2022 Eosinophils (Bld) [#/Vol] 0.3 10*3/uL Normal 0.0-0.45 [facility] Comment on above: Performed By: #### C MP, CBC ####[address] Automated monocyte %Ordered By: Estela Varma on 12-22-2022 Monocytes/100 WBC (Bld) 7.8 % Normal . [facility] Comment on above: Performed By: #### C MP, CBC ####[address] Automated neutrophil %Ordere d By: Estela Varma on 12-22-2022 Neutrophils/100 WBC (Bld) 70.2 % Normal . [facility] Comment on above: Performed By: #### C MP, CBC ####[address] Bilirubin.total [Mass/volume ] in Serum or PlasmaOrdered By: Estela Varma on 12-22-2022 Bilirubin [Mass/Vol] 0.5 mg/dL Normal 0.3-1.0 [facility] Comment on above: Performed By: #### C MP, CBC ####[address] Calcium [Mass/volume] in Ser um or PlasmaOrdered By: Estela Varma on 12-22-2022 Calcium [Mass/Vol] 8.0 mg/dL Low 8.6-10.3 [facility] Comment on above: Performed By: #### C MP, CBC ####[address] Capillary blood glucose ledy urement by glucometer (mass/volume)Ordered By: Estela Varma on 12-22-2022 Glucose [Mass/Vol] 71 mg/dL Normal [facility] Comment on above: Random Glucose Refer ence Range is dependent on time and content of last meal. Glucose of more than 200 mg/dL in a nonstressed, ambulatory subject supports the diagnosis of Diabetes Mellitus. Result Comment: [place] [facility] Glucose Reference Range is dependent on time and content of last meal. Glucose of more than 200 mg/dL in a nonstressed, ambulatory subject supports the diagnosis of Diabetes Mellitus. PERFORMED BY: [facility] [address] [place] [address] PATHOLOGIST [employer] DEVELOPMENT OFFICER CATY DELCID M.D. Performed By: #### G TERRY #### Point of Care testing , Carbon dioxide, total [Moles /volume] in Serum or PlasmaOrdered By: Estela Varma on 12-22-2022 CO2 [Moles/Vol] 23.2 mmol/L Normal 21.0-31.0 [facility] Comment on above: Performed By: #### C MP, CBC ####[address] Chloride [Moles/volume] in S coral or PlasmaOrdered By: Estela Varma on 12-22-2022 Chloride [Moles/Vol] 100 mmol/L Normal 98-107 [facility] Comment on above: Performed By: #### C MP, CBC ####[place] [id number] [facility] Complete Blood Count Auto Di ffon 12-22-2022 Mean Corpuscular HGB Conc 33.5 g/dL Normal 32.5-35.6 [facility] Comment on above: Performed By: #### C MP, CBC ####[address] NRBC% 0.0 /100{WBC} Normal 0-0.5 [facility] Comment on above: Performed By: #### C MP, CBC ####[address] Comprehensive Metabolic Pane nicolas 12-22-2022 Albumin [Mass/Vol] 3.7 g/dL Normal 3.5-5.7 [facility] Comment on above: Performed By: #### C MP, CBC ####[address] Creatinine Clr Calc Pharmacy 114.05 Normal [facility] Comment on above: Result Comment: PERF ORMED BY: [facility] [address] [place] [id number] PATHOLOGIST [employer] OFFICER CATY DELCID M.D. Performed By: #### C MP, CBC ####[address] GFR/1.73 sq M.predicted MDRD (S/P/Bld) [Vol rate/Area] mL/min/{1.73_m2} Normal [facility] Comment on above: Performed By: #### C MP, CBC ####[place] [id number] [facility] Creatinine [Mass/volume] in Serum or PlasmaOrdered By: Estela Varma on 12-22-2022 Creatinine [Mass/Vol] 0.69 mg/dL Low 0.70-1.30 [facility] Comment on above: Performed By: #### C MP, CBC ####[address] Erythrocyte distribution wid th [Ratio] by Automated countOrdered By: Estela Varma on 12-22-2022 Erythrocyte distribution width (RBC) [Ratio] 16.0 % High 12.0-14.8 [facility] Comment on above: Performed By: #### C MP, CBC ####[address] Erythrocytes [#/volume] in B lood by Automated countOrdered By: Estela Varma on 12-22-2022 RBC (Bld) [#/Vol] 4.17 10*6/uL Normal 3.90-5.60 [facility] Comment on above: Performed By: #### C MP, CBC ####[place] [id number] [facility] Glucose [Mass/volume] in Ser um or PlasmaOrdered By: Estela Varma on 12-22-2022 Glucose [Mass/Vol] 65 mg/dL Low 70-100 [facility] Comment on above: ADA recommended refe rence rangeRandom Glucose Reference Range is dependent on time and content of last meal. Glucose of more than 200 mg/dL in a nonstressed, ambulatory subject supports the diagnosis of Diabetes Mellitus. Result Comment: [place] om Glucose Reference Range is dependent on time and content of last meal. Glucose of more than 200 mg/dL in a nonstressed, ambulatory subject supports the diagnosis of Diabetes Mellitus. ADA recommended reference range Performed By: #### C MP, CBC ####[address] Hematocrit [Volume Fraction] of Blood by Automated countOrdered By: Estela Varma on 12-22-2022 Hematocrit (Bld) [Volume fraction] 39.6 % Normal 38.8-50.0 [facility] Comment on above: Performed By: #### C MP, CBC ####[address] Hemoglobin [Mass/volume] in BloodOrdered By: Estela Varma on 12-22-2022 Hemoglobin (Bld) [Mass/Vol] 13.3 g/dL Normal 13.0-17.0 [facility] Comment on above: Performed By: #### C MP, CBC ####[place] [id number] [facility] Leukocytes [#/volume] correc chris for nucleated erythrocytes in Blood by Automated counOrdered By: Estela Varma on 12-22-2022 WBC corrected for nucl RBC Auto (Bld) [#/Vol] 6.0 10*3/uL 4.1-10.5 [facility] Leukocytes [#/volume] in Blo od by Automated countOrdered By: Estela Varma on 12-22-2022 WBC (Bld) [#/Vol] 6.0 10*3/uL Normal 4.1-10.5 [facility] Comment on above: Performed By: #### C MP, CBC ####[address] Lymphocytes [#/volume] in Bl ood by Automated countOrdered By: Estela Varma on 12-22-2022 Lymphocytes (Bld) [#/Vol] 0.9 10*3/uL Low 1.00-4.8 [facility] Comment on above: Performed By: #### C MP, CBC ####[address] Lymphocytes/100 leukocytes i n Blood by Automated countOrdered By: Estela Varma on 12-22-2022 Lymphocytes/100 WBC (Bld) 15.7 % Normal . [facility] Comment on above: Performed By: #### C MP, CBC ####[address] MCH [Entitic mass] by Automa chris countOrdered By: Estela Varma on 12-22-2022 MCH (RBC) [Entitic mass] 31.9 pg Normal 27.5-35.2 [facility] Comment on above: Performed By: #### C MP, CBC ####[address] MCHC Auto (RBC) [Mass/Vol]Or dered By: Estela Varma on 12-22-2022 MCHC (RBC) [Mass/Vol] 33.5 g/dL 32.5-35.6 [facility] MCV [Entitic volume] by Auto mated countOrdered By: Estela Varma on 12-22-2022 MCV (RBC) [Entitic vol] 95.0 fL Normal 83.5-101 [facility] Comment on above: Performed By: #### C MP, CBC ####[address] Neutrophils [#/volume] in Bl ood by Automated countOrdered By: Estela Varma on 12-22-2022 Neutrophils (Bld) [#/Vol] 4.2 10*3/uL Normal 1.8-7.7 [facility] Comment on above: Performed By: #### C MP, CBC ####[facility] [id number] No Panel InformationOrdered By: Estela Varma on 12-22-2022 Estimated GFR (CKD-EPI) > 60.0 mL/Min [facility] Creatinine Clearance (Chem 114.05 [facility] Nucleated erythrocytes [Pres ence] in Blood by Automated countOrdered By: Estela Varma on 12-22-2022 Nucleated RBC Auto Ql (Bld) 0.0 /100{WBC} 0-0.5 [facility] PET tumor subq tx strat sb-m ton 12-22-2022 PET tumor subq tx strat sb-mt [facility] [address] [place] [address] [place] [address] Nuclear Medicine Report Signed Patient: Kirill Echols MR#: [id number] 194 : 1965 Acct:[id number] Age/Sex: 57 / M ADM Date: 12/22/22 Loc: Room: Type: [facility] RCR Attending Dr: Estela Varma II [...] MALIGNANCY. Impression dictated by: Victorino Ellison Jr., D.OSesar12/22/2022 11:42 AM Dictation Location: [place] [address] Transcribed By: [facility] 12/22/22 1142 Dictated By: Victorino Ellison Jr, DO 12/22/22 1135 Signed By: 12/22/22 1142 Normal [facility] Platelet mean volume [Entiti c volume] in Blood by Automated countOrdered By: Estela Varma on 12-22-2022 Platelet mean volume (Bld) [Entitic vol] 6.9 fL Normal 6.6-10.1 [facility] Comment on above: Performed By: #### C MP, CBC ####[place] [id number] [facility] Platelets [#/volume] in Bloo d by Automated countOrdered By: Estela Varma on 12-22-2022 Platelets (Bld) [#/Vol] 177 10*3/uL Normal 150-450 [facility] Comment on above: Performed By: #### C MP, CBC ####[place] [id number] [facility] Potassium [Moles/volume] in Serum or PlasmaOrdered By: Estela Varma on 12-22-2022 Potassium [Moles/Vol] 4.2 mmol/L Normal 3.5-5.1 [facility] Comment on above: Performed By: #### C MP, CBC ####[address] [address] [facility] Protein [Mass/volume] in Ser um or PlasmaOrdered By: Estela Varma on 12-22-2022 Protein [Mass/Vol] 6.0 g/dL Low 6.4-8.9 [facility] Comment on above: Performed By: #### C MP, CBC ####[address] [address] [facility] Serum globulin measurement b y calculation (mass/volume)Ordered By: Estela Varma on 12-22-2022 Globulin (S) [Mass/Vol] 2.3 g/dL [facility] Comment on above: Performed By: #### C MP, CBC ####[place] [id number] [facility] Serum or plasma albumin/glob ulin mass ratioOrdered By: Estela Varma on 12-22-2022 Albumin/Globulin [Mass ratio] 1.6 {ratio} [facility] Comment on above: Performed By: #### C MP, CBC ####[address] Serum or plasma anion gap de terminationOrdered By: Estela Varma on 12-22-2022 Anion gap [Moles/Vol] 8.0 mmol/L Normal 6.0-15.0 [facility] Comment on above: Performed By: #### C MP, CBC ####[place] [id number] [facility] Sodium [Moles/volume] in Ser um or PlasmaOrdered By: Estela Varma on 12-22-2022 Sodium [Moles/Vol] 127 mmol/L Low 136-145 [facility] Comment on above: Performed By: #### C MP, CBC ####[place] [id number] [facility] Urea nitrogen [Mass/volume] in Serum or PlasmaOrdered By: Estela Varma on 12-22-2022 Urea nitrogen [Mass/Vol] 6 mg/dL Low 7-25 [facility] Comment on above: Performed By: #### C MP, CBC ####[place] [id number] [place] Alanine aminotransferase [En zymatic activity/volume] in Serum or PlasmaOrdered By: Estela Varma on 10-26-2022 ALT [Catalytic activity/Vol] 12 U/L 7-52 [facility] Albumin [Mass/volume] in Ser um or Plasma by Bromocresol green (BCG) dye binding methoOrdered By: Estela Varma on 10-26-2022 Albumin BCG dye [Mass/Vol] 3.9 g/dL 3.5-5.7 [facility] Alkaline phosphatase [Enzyma tic activity/volume] in Serum or PlasmaOrdered By: Estela Varma on 10-26-2022 ALP [Catalytic activity/Vol] 140 U/L 34-104 [facility] Aspartate aminotransferase [ Enzymatic activity/volume] in Serum or PlasmaOrdered By: Estela Varma on 10-26-2022 AST [Catalytic activity/Vol] 16 U/L 13-39 [facility] Basophils Auto (Bld) [#/Vol] Ordered By: Estela Varma on 10-26-2022 Basophils (Bld) [#/Vol] 0.0 10*3/uL 0.0-0.2 [facility] Basophils/100 WBC Auto (Bld) Ordered By: Estela Varma on 10-26-2022 Basophils/100 WBC (Bld) 0.8 % . [facility] Bilirubin.total [Mass/volume ] in Serum or PlasmaOrdered By: Estela Varma on 10-26-2022 Bilirubin [Mass/Vol] 0.6 mg/dL 0.3-1.0 [facility] Calcium [Mass/volume] in Ser um or PlasmaOrdered By: Estela Varma on 10-26-2022 Calcium [Mass/Vol] 8.3 mg/dL 8.6-10.3 [facility] Carbon dioxide, total [Moles /volume] in Serum or PlasmaOrdered By: Estela Varma on 10-26-2022 CO2 [Moles/Vol] 23.5 mmol/L 21.0-31.0 [facility] Chloride [Moles/volume] in S coral or PlasmaOrdered By: Estela Varma on 10-26-2022 Chloride [Moles/Vol] 98 mmol/L 98-107 [facility] Creatinine [Mass/volume] in Serum or PlasmaOrdered By: Estela Varma on 10-26-2022 Creatinine [Mass/Vol] 0.67 mg/dL 0.70-1.30 [facility] Eosinophils Auto (Bld) [#/Vo l]Ordered By: Estela Varma on 10-26-2022 Eosinophils (Bld) [#/Vol] 0.1 10*3/uL 0.0-0.45 [facility] Eosinophils/100 WBC Auto (Bl d)Ordered By: Estela Varma on 10-26-2022 Eosinophils/100 WBC (Bld) 2.6 % . [facility] Erythrocyte distribution wid th Auto (RBC) [Ratio]Ordered By: Estela Varma on 10-26-2022 Erythrocyte distribution width (RBC) [Ratio] 15.0 % 12.0-14.8 [facility] Erythrocyte sedimentation ra te by Photometric methodOrdered By: Estela Varma on 10-26-2022 ESR Photometric method (Bld) [Velocity] 16 mm/hr 0-19 [facility] Ferritin [Mass/volume] in Se rum or PlasmaOrdered By: Estela Varma on 10-26-2022 Ferritin [Mass/Vol] 225.5 ng/mL 23.9-336.2 [facility] Folate [Mass/volume] in Seru m or PlasmaOrdered By: Estela Varma on 10-26-2022 Folate [Mass/Vol] 4.9 ng/mL >5.9 [facility] Comment on above: Folate reference ran ge: >5.9 ng/mlThe WHO technical consultation on folate and vitamin [id number] has determined that folate concentrations lessthan 4 ng/ml are considered deficient. Globulin Calc (S) [Mass/Vol] Ordered By: Estela Varma on 10-26-2022 Globulin (S) [Mass/Vol] 2.8 g/dL [facility] Glucose [Mass/volume] in Ser um or PlasmaOrdered By: Estela Varma on 10-26-2022 Glucose [Mass/Vol] 66 mg/dL 70-100 [facility] Comment on above: ADA recommended refe rence rangeRandom Glucose Reference Range is dependent on time and content of last meal. Glucose of more than 200 mg/dL in a nonstressed, ambulatory subject supports the diagnosis of Diabetes Mellitus. Hematocrit Auto (Bld) [Volum e fraction]Ordered By: Estela Varma on 10-26-2022 Hematocrit (Bld) [Volume fraction] 39.7 % 38.8-50.0 [facility] Hemoglobin [Mass/volume] in BloodOrdered By: Estela aVrma on 10-26-2022 Hemoglobin (Bld) [Mass/Vol] 13.6 g/dL 13.0-17.0 [facility] Iron [Mass/volume] in Serum or PlasmaOrdered By: Estela Varma on 10-26-2022 Iron [Mass/Vol] 103 ug/dL 50-212 [facility] Iron binding capacity [Mass/ volume] in Serum or PlasmaOrdered By: Estela Varma on 10-26-2022 Iron binding capacity [Mass/Vol] 269 ug/dL 255-450 [facility] Iron saturation [Mass Fracti on] in Serum or PlasmaOrdered By: Estela Varma on 10-26-2022 Iron saturation [Mass fraction] 38.3 % 20-50 [facility] Leukocytes [#/volume] correc chris for nucleated erythrocytes in Blood by Automated counOrdered By: Estela Varma on 10-26-2022 WBC corrected for nucl RBC Auto (Bld) [#/Vol] 5.8 10*3/uL 4.1-10.5 [facility] Lymphocytes Auto (Bld) [#/Vo l]Ordered By: Estela Varma on 10-26-2022 Lymphocytes (Bld) [#/Vol] 0.9 10*3/uL 1.00-4.8 [facility] Lymphocytes/100 WBC Auto (Bl d)Ordered By: Estela Varma on 10-26-2022 Lymphocytes/100 WBC (Bld) 15.0 % . [facility] MCH Auto (RBC) [Entitic mass ]Ordered By: Estela Varma on 10-26-2022 MCH (RBC) [Entitic mass] 32.6 pg 27.5-35.2 [facility] MCHC Auto (RBC) [Mass/Vol]Or dered By: Estela Varma on 10-26-2022 MCHC (RBC) [Mass/Vol] 34.2 g/dL 32.5-35.6 [facility] MCV Auto (RBC) [Entitic vol] Ordered By: Estela Varma on 10-26-2022 MCV (RBC) [Entitic vol] 95.2 fL 83.5-101 [facility] Monocytes Auto (Bld) [#/Vol] Ordered By: Estela Varma on 10-26-2022 Monocytes (Bld) [#/Vol] 0.7 10*3/uL 0.0-0.8 [facility] Monocytes/100 WBC Auto (Bld) Ordered By: Estela Varma on 10-26-2022 Monocytes/100 WBC (Bld) 12.1 % . [facility] Neutrophils Auto (Bld) [#/Vo l]Ordered By: Estela Varma on 10-26-2022 Neutrophils (Bld) [#/Vol] 4.1 10*3/uL 1.8-7.7 [facility] Neutrophils/100 WBC Auto (Bl d)Ordered By: Estela Varma on 10-26-2022 Neutrophils/100 WBC (Bld) 69.5 % . [facility] No Panel InformationOrdered By: Estela Varma on 10-26-2022 Estimated GFR (CKD-EPI) > 60.0 mL/Min [facility] Creatinine Clearance (Chem 121.12 [facility] Nucleated erythrocytes [Pres ence] in Blood by Automated countOrdered By: Estela Varma on 10-26-2022 Nucleated RBC Auto Ql (Bld) 0.2 /100{WBC} 0-0.5 [facility] Platelet mean volume Auto (B ld) [Entitic vol]Ordered By: Estela Varma on 10-26-2022 Platelet mean volume (Bld) [Entitic vol] 6.7 fL 6.6-10.1 [facility] Platelets Auto (Bld) [#/Vol] Ordered By: Estela Varma on 10-26-2022 Platelets (Bld) [#/Vol] 227 10*3/uL 150-450 [facility] Potassium [Moles/volume] in Serum or PlasmaOrdered By: Estela Varma on 10-26-2022 Potassium [Moles/Vol] 4.1 mmol/L 3.5-5.1 [facility] Protein [Mass/volume] in Ser um or PlasmaOrdered By: Estela Varma on 10-26-2022 Protein [Mass/Vol] 6.7 g/dL 6.4-8.9 [facility] RBC Auto (Bld) [#/Vol]Ordere d By: Estela Varma on 10-26-2022 RBC (Bld) [#/Vol] 4.17 10*6/uL 3.90-5.60 [facility] Serum or plasma albumin/glob ulin mass ratioOrdered By: Estela Varma on 10-26-2022 Albumin/Globulin [Mass ratio] 1.4 {ratio} [facility] Serum or plasma anion gap de terminationOrdered By: Estela Varma on 10-26-2022 Anion gap [Moles/Vol] 11.6 mmol/L 6.0-15.0 [facility] Serum or plasma carcinoembry onic antigen measurement (mass/volume)Ordered By: Estela Varma on 10-26-2022 Carcinoembryonic Ag [Mass/Vol] 8.0 ng/mL 0.0-3.0 [facility] Serum or plasma erythropoiet in (EPO) measurement (units/volume)Ordered By: Estela Varma on 10-26-2022 Erythropoietin (EPO) Qn 15.7 mIU/mL 2.6-18.5 [facility] Comment on above: Valentine [employer] Uni[employer] el DxI 800 Immunoassay SystemValues obtained with different assay methods or kits cannotbe used interchangeably. Results cannot be interpreted asabsolute evidence of the presence or absence of malignantdisease.Performed at: [facility] [address] [id number] Director: Fernando Brand PhD, Phone: [phone] Sodium [Moles/volume] in Ser um or PlasmaOrdered By: Estela Varma on 10-26-2022 Sodium [Moles/Vol] 129 mmol/L 136-145 [facility] Transferrin [Mass/volume] in Serum or PlasmaOrdered By: Estela Varma on 10-26-2022 Transferrin [Mass/Vol] 192 mg/dL 203-362 [facility] Urea nitrogen [Mass/volume] in Serum or PlasmaOrdered By: Estela Varma on 10-26-2022 Urea nitrogen [Mass/Vol] 8 mg/dL 7-25 [facility] Vitamin B12 ser/plasOrdered By: Estela Vamra on 10-26-2022 Cobalamin (Vitamin B12) [Mass/Vol] 252 pg/mL 180-914 [facility] WBC Auto (Bld) [#/Vol]Ordere d By: Estela Varma on 10-26-2022 WBC (Bld) [#/Vol] 5.8 10*3/uL 4.1-10.5 [facility] CYTOLOGYon 10-03-2022 SENT TO REF LAB 10/04/2022 Normal [facility] Comment on above: Performed By: #### C YTO #### [facility] [address] [place] [address] [address] Sushant Pradhan CULTURE STERILE BODY FLUIDon 09-11-2022 CULTURE STERILE BODY FLUID Culture Observations: NO GROWTH AT 72 HRS [facility] Comment on above: Performed By: #### C MREP #### [facility] [address] [place] [address] [address] Sushant Pradhan CULTURE STERILE BODY FLUIDon 09-08-2022 CULTURE STERILE BODY FLUID Culture Observations: NO GROWTH AT 72 HOURS. [facility] Comment on above: Performed By: #### C MREP #### [facility] [address] [place] [address] [address] Sushant Pradhan CULTURE STERILE BODY FLUIDon 09-04-2022 CULTURE STERILE BODY FLUID Culture Observations: NO GROWTH AT 72 HOURS. [facility] Comment on above: Performed By: #### C MREP #### [facility] [address] [place] [address] [address] Sushant Pradhan XR RIBS LT PA [...] recent CT study. Electronically authenticated by: JESSE RAOMS Date: 2022-09-01 11:46 Normal [facility] CBC AUTO DIFFon 08-27-2022 BASO # 0.0 103/ul Normal 0.0-0.1 [facility] Comment on above: Performed By: #### C BC #### [facility] [address] [place] [address] Dr. Sushant Pradhan Basophils/100 WBC (Bld) 0.3 % Normal 0.2-2.0 [facility] Comment on above: Performed By: #### C BC #### [facility] [address] [place] [address] Dr. Sushant Pradhan EO # 0.2 103/ul Normal 0.0-0.7 [facility] Comment on above: Performed By: #### C BC #### [facility] [address] [place] [address] [address] Sushant Pradhan Eosinophils/100 WBC (Bld) 3.0 % Normal 0.9-7.0 [facility] Comment on above: Performed By: #### C BC #### [facility] [address] [place] [address] Dr. Sushant Pradhan Erythrocyte distribution width (RBC) [Ratio] 16.5 % Critically high 11.0-15.0 [facility] Comment on above: Performed By: #### C BC #### [facility] [address] [place] [address] Dr. Sushant Pradhan Hematocrit (Bld) [Volume fraction] 38.4 % Critically low 42.0-54.0 [facility] Comment on above: Performed By: #### C BC #### [facility] [address] [place] [address] Dr. Sushant Pradhan Hemoglobin (Bld) [Mass/Vol] 13.9 g/dL Critically low 14.0-18.0 [facility] Comment on above: Performed By: #### C BC #### [facility] [address] [place] [address] Dr. Sushant Pradhan IG # 0.01 10e3/ul Normal 0.00-0.03 [facility] Comment on above: Performed By: #### C BC #### [facility] [address] [place] [address] Dr. Sushant Pradhan IG % 0.2 % Normal 0.0-0.5 [facility] Comment on above: Performed By: #### C BC #### [facility] [address] [place] [address] Dr. Sushant Pradhan LYMPH # 1.0 103/ul Critically low 1.2-3.8 [facility] Comment on above: Performed By: #### C BC #### [facility] [address] [place] [address] Dr. Sushant Pradhan Lymphocytes/100 WBC (Bld) 15.8 % Critically low 20.5-60.0 [facility] Comment on above: Performed By: #### C BC #### [facility] [address] [place] [address] Dr. Sushant Pradhan MANUAL DIFF REQ NO Normal [facility] Comment on above: Performed By: #### C BC #### [facility] [address] [place] [address] Dr. Sushant Pradhan MCH (RBC) [Entitic mass] 32.8 pg Normal 25.9-34.0 [facility] Comment on above: Performed By: #### C BC #### [facility] [address] [place] [address] Dr. Sushant Pradhan MCHC (RBC) [Mass/Vol] 36.2 g/dL Critically high 29.9-35.2 [facility] Comment on above: Performed By: #### C BC #### [facility] [address] [place] [place] [address] [address] Sushant Pradhan MCV (RBC) [Entitic vol] 90.6 fL Normal 80.0-94.0 [facility] Comment on above: Performed By: #### C BC #### [facility] [address] [place] [place] [address] [address] Sushant Pradhan MONO # 0.8 103/ul Normal 0.3-0.8 [facility] Comment on above: Performed By: #### C BC #### [facility] [address] [place] [place] [address] [address] Sushant Pradhan Monocytes/100 WBC (Bld) 12.6 % Critically high 1.7-12.0 [facility] Comment on above: Performed By: #### C BC #### [facility] [address] [place] [address] Dr. Sushant Pradhan NEUT # 4.3 103/ul Normal 1.4-6.5 [facility] Comment on above: Performed By: #### C BC #### [facility] [address] [place] [place] [address] [address] Sushant Pradhan Neutrophils/100 WBC (Bld) 68.1 % Normal 43.0-75.0 [facility] Comment on above: Performed By: #### C BC #### [facility] [address] [place] [place] [address] [address] Sushant Pradhan Platelet mean volume (Bld) [Entitic vol] 9.0 fL Critically low 9.5-13.5 [facility] Comment on above: Performed By: #### C BC #### [facility] [address] [place] [address] [address] Sushant Pradhan PLT 192 103/ul Normal 150-450 [facility] Comment on above: Performed By: #### C BC #### [facility] [address] [place] [address] Dr. Sushant Pradhan RBC 4.24 106/ul Critically low 4.70-6.10 [facility] Comment on above: Performed By: #### C BC #### [facility] [address] [place], [place] [address] Dr. Sushant Pradhan WBC 6.3 103/ul Normal 4.0-11.0 [facility] Comment on above: Performed By: #### C BC #### [facility] [address] [place], [place] [address] CHEST W CONon [...] by: MARCE SHAY Date: 2022-08-27 12:02 Normal [facility] LACTATE/LACTIC ACIDon 2022 Lactate [Moles/Vol] 1.8 mmol/L Normal 0.4-2.0 [facility] Comment on above: Performed By: #### C MREP #### [facility] [address] [place] [address] Dr. Sushant Pradhan PROF 14(COMP METB)on 023 Albumin [Mass/Vol] 3.2 g/dL Critically low 3.4-5.0 [facility] Comment on above: Performed By: #### C BC #### [facility] [address] [place] [address] Dr. Sushant Pradhan Albumin/Globulin [Mass ratio] 0.7 {ratio} Normal [facility] Comment on above: Performed By: #### C BC #### [facility] [address] [place] [address] Dr. Sushant Pradhan ALP [Catalytic activity/Vol] 207 U/L Critically high 46-116 [facility] Comment on above: Performed By: #### C BC #### [facility] [address] [place] [address] Dr. Sushant Pradhan ALT [Catalytic activity/Vol] 22 U/L Normal 16-63 [facility] Comment on above: Performed By: #### C BC #### [facility] [address] [place] [address] Dr. Sushant Pradhan Anion gap [Moles/Vol] 11.9 mmol/L Normal [facility] Comment on above: Performed By: #### C BC #### [facility] [address] [place] [address] [address] Sushant Pradhan AST [Catalytic activity/Vol] 23 U/L Normal 15-37 [facility] Comment on above: Performed By: #### C BC #### [facility] [address] [place] [address] [address] Sushant Pradhan Bilirubin [Mass/Vol] 0.4 mg/dL Normal 0.2-1.0 [facility] Comment on above: Performed By: #### C BC #### [facility] [address] [address] [address] Sushant Pradhan Calcium [Mass/Vol] 9.2 mg/dL Normal 8.5-10.1 [facility] Comment on above: Performed By: #### C BC #### [facility] [address] [address] [address] Sushant Pradhan Chloride [Moles/Vol] 97 mmol/L Critically low 98-107 [facility] Comment on above: Performed By: #### C BC #### [facility] [address] [address] [address] Sushant Pradhan CO2 [Moles/Vol] 28.1 mmol/L Normal 21.0-32.0 [facility] Comment on above: Performed By: #### C BC #### [facility] [address] [address] [address] Sushant Pradhan Creatinine [Mass/Vol] 0.86 mg/dL Normal 0.70-1.30 [facility] Comment on above: Performed By: #### C BC #### [facility] [address] [address] [address] Sushant Pradhan EGFR-AF PRYDEINIG >60 Normal >=60 [facility] Comment on above: Performed By: #### C BC #### [facility] [address] [address] [address] Sushant Pradhan EGFR-NON AF PRYDEINIG >60 Normal >=60 [facility] Comment on above: Performed By: #### C BC #### [facility] [address] [address] [address] Sushant Pradhan Globulin (S) [Mass/Vol] 4.8 g/dL Normal [facility] Comment on above: Performed By: #### C BC #### [facility] [address] [address] [address] Sushant Pradhan Glucose [Mass/Vol] 104 mg/dL Normal 74-106 [facility] Comment on above: Performed By: #### C BC #### [facility] [address] [address] [address] Sushant Pradhan Potassium [Moles/Vol] 4.0 mmol/L Normal 3.5-5.1 [facility] Comment on above: Performed By: #### C BC #### [facility] [address] [address] [address] Sushant Pradhan Protein [Mass/Vol] 8.0 g/dL Normal 6.4-8.2 [facility] Comment on above: Performed By: #### C BC #### [facility] [address] [address] [address] Sushant Pradhan Sodium [Moles/Vol] 133 mmol/L Critically low 136-145 [facility] Comment on above: Performed By: #### C BC #### [facility] [address] [address] [address] Sushant Pradhan Urea nitrogen [Mass/Vol] 6.0 mg/dL Critically low 7.0-18.0 [facility] Comment on above: Performed By: #### C BC #### [facility] [address] [address] [address] Sushant Pradhan Urea nitrogen/Creatinine [Mass ratio] 7.0 mg/mg Normal [facility] Comment on above: Performed By: #### C BC #### [facility] [address] [place] [address] Dr. Sushant Pradhan TROPONIN, HIGH SENSITIVITYon 08-27-2022 HSTROP 5.6 pg/mL Normal 4.0-76.1 [facility] Comment on above: Result Comment: CUT- OFF POINTS HAVE BEEN ESTABLISHED BASED ON THE FOURTH UNIVERSAL DEFINITIONS OF MYOCARDIAL INFARCTION. THE UPPER REFERENCE LIMIT (URL) OF TROPONIN, DEFINED THE 99TH PERCENTILE OF cTnI DISTRIBUTION IN A REFERENCE POPULATION, HAS BEEN CONFIRMED THE DECISION THRESHOLD FOR CO DIAGNOSIS. Performed By: #### C BC #### [facility] [address] [place] [address] Dr. Sushant Pradhan HSTROP 5.8 pg/mL Normal 4.0-76.1 [facility] Comment on above: Result Comment: CUT- OFF POINTS HAVE BEEN ESTABLISHED BASED ON THE FOURTH UNIVERSAL DEFINITIONS OF MYOCARDIAL INFARCTION. THE UPPER REFERENCE LIMIT (URL) OF TROPONIN, DEFINED THE 99TH PERCENTILE OF cTnI DISTRIBUTION IN A REFERENCE POPULATION, HAS BEEN CONFIRMED THE DECISION THRESHOLD FOR CO DIAGNOSIS. Performed By: #### C BC #### [facility] [address] [place] [address] Dr. Sushant Pradhan CARDIAC SONIA ADMITon 023 CK [Catalytic activity/Vol] 68 U/L Normal 39-308 [facility] Comment on above: Performed By: #### C MREP #### [facility] [address] [place] [address] Dr. Sushant Pradhan CK.MB [Mass/Vol] 1.23 ng/mL Normal <=3.60 [facility] Comment on above: Performed By: #### C MREP #### [facility] [address] [place] [address] Dr. Sushant Pradhan HSTROP 7.1 pg/mL Normal 4.0-76.1 [facility] Comment on above: Result Comment: CUT- OFF POINTS HAVE BEEN ESTABLISHED BASED ON THE [facility] UNIVERSAL DEFINITIONS OF MYOCARDIAL INFARCTION. THE UPPER REFERENCE LIMIT (URL) OF TROPONIN, DEFINED THE 99TH PERCENTILE OF cTnI DISTRIBUTION IN A REFERENCE POPULATION, HAS BEEN CONFIRMED THE DECISION THRESHOLD FOR CO DIAGNOSIS. Performed By: #### C MREP #### [facility] [address] [place] [address] Dr. Sushant Pradhan DILAN 32 ng/mL Normal 16-96 [facility] Comment on above: Performed By: #### C MREP #### [facility] [address] [place] [address] Dr. Sushant Pradhan CBC AUTO DIFFon 02-05-2023 BASO # 0.0 103/ul Normal 0.0-0.1 [facility] Comment on above: Performed By: #### C BC #### [facility] [address] [place] [address] Dr. Sushant Pradhan Basophils/100 WBC (Bld) 0.5 % Normal 0.2-2.0 [facility] Comment on above: Performed By: #### C BC #### [facility] [address] [place] [address] Dr. Sushant Pradhan EO # 0.3 103/ul Normal 0.0-0.7 [facility] Comment on above: Performed By: #### C BC #### [facility] [address] [place] [address] Dr. Sushant Pradhan Eosinophils/100 WBC (Bld) 4.5 % Normal 0.9-7.0 [facility] Comment on above: Performed By: #### C BC #### [facility] [address] [place] [address] Dr. Sushant Pradhan Erythrocyte distribution width (RBC) [Ratio] 15.8 % Critically high 11.0-15.0 [facility] Comment on above: Performed By: #### C BC #### [facility] [address] [place] [address] Dr. Sushant Pradhan Hematocrit (Bld) [Volume fraction] 37.3 % Critically low 42.0-54.0 [facility] Comment on above: Performed By: #### C BC #### [facility] [address] [place] [address] Dr. Sushant Pradhan Hemoglobin (Bld) [Mass/Vol] 13.0 g/dL Critically low 14.0-18.0 [facility] Comment on above: Performed By: #### C BC #### [facility] [address] [place] [address] Dr. Sushant Pradhan IG # 0.02 10e3/ul Normal 0.00-0.03 [facility] Comment on above: Performed By: #### C BC #### [facility] [address] [place] [address] Dr. Sushant Pradhan IG % 0.3 % Normal 0.0-0.5 [facility] Comment on above: Performed By: #### C BC #### [facility] [address] [place] [address] Dr. Sushant Pradhan LYMPH # 0.8 103/ul Critically low 1.2-3.8 [facility] Comment on above: Performed By: #### C BC #### [facility] [address] [place] [address] Dr. Sushant Pradhan Lymphocytes/100 WBC (Bld) 13.9 % Critically low 20.5-60.0 [facility] Comment on above: Performed By: #### C BC #### [facility] [address] [place] [address] Dr. Sushant Pradhan MANUAL DIFF REQ NO Normal [facility] Comment on above: Performed By: #### C BC #### [facility] [address] [place] [address] Dr. Sushant Pradhan MCH (RBC) [Entitic mass] 33.0 pg Normal 25.9-34.0 [facility] Comment on above: Performed By: #### C BC #### [facility] [address] [place] [address] Dr. Sushant Pradhan MCHC (RBC) [Mass/Vol] 34.9 g/dL Normal 29.9-35.2 [facility] Comment on above: Performed By: #### C BC #### [facility] [address] [place] [address] Dr. Sushant Pradhan MCV (RBC) [Entitic vol] 94.7 fL Critically high 80.0-94.0 [facility] Comment on above: Performed By: #### C BC #### [facility] [address] [place] [address] Dr. Sushant Pradhan MONO # 0.7 103/ul Normal 0.3-0.8 [facility] Comment on above: Performed By: #### C BC #### [facility] [address] [place] [address] Dr. Sushant Pradhan Monocytes/100 WBC (Bld) 12.5 % Critically high 1.7-12.0 [facility] Comment on above: Performed By: #### C BC #### [facility] [address] [place] [address] Dr. Sushant Pradhan NEUT # 4.0 103/ul Normal 1.4-6.5 [facility] Comment on above: Performed By: #### C BC #### [facility] [address] [address] [address] Sushant Pradhan Neutrophils/100 WBC (Bld) 68.3 % Normal 43.0-75.0 [facility] Comment on above: Performed By: #### C BC #### [facility] [address] [place] [address] Dr. Sushant Pradhan Platelet mean volume (Bld) [Entitic vol] 9.1 fL Critically low 9.5-13.5 [facility] Comment on above: Performed By: #### C BC #### [facility] [address] [place] [address] Dr. Sushant Pradhan PLT 175 103/ul Normal 150-450 [facility] Comment on above: Performed By: #### C BC #### [facility] [address] [place] [address] Dr. Sushant Pradhan RBC 3.94 106/ul Critically low 4.70-6.10 [facility] Comment on above: Performed By: #### C BC #### [facility] [address] [place] [address] Dr. Sushant Pradhan WBC 5.8 103/ul Normal 4.0-11.0 [facility] Comment on above: Performed By: #### C BC #### [facility] [address] [place] [address] Dr. Sushant Pradhan PROF 14(COMP METB)on 023 Albumin [Mass/Vol] 2.9 g/dL Critically low 3.4-5.0 [facility] Comment on above: Performed By: #### C MREP #### [facility] [address] [place] [address] Dr. Sushant Pradhan Albumin/Globulin [Mass ratio] 0.8 {ratio} Normal [facility] Comment on above: Performed By: #### C MREP #### [facility] [address] [place] [address] Dr. Sushant Pradhan ALP [Catalytic activity/Vol] 133 U/L Critically high 46-116 [facility] Comment on above: Performed By: #### C MREP #### [facility] [address] [place] [address] Dr. Sushant Pradhan ALT [Catalytic activity/Vol] 15 U/L Critically low 16-63 [facility] Comment on above: Performed By: #### C MREP #### [facility] [address] [place] [address] Dr. Sushant Pradhan Anion gap [Moles/Vol] 16.5 mmol/L Normal [facility] Comment on above: Performed By: #### C MREP #### [facility] [address] [place] [address] Dr. Sushant Pradhan AST [Catalytic activity/Vol] 15 U/L Normal 15-37 [facility] Comment on above: Performed By: #### C MREP #### [facility] [address] [place] [address] Dr. Sushant Pradhan Bilirubin [Mass/Vol] 0.4 mg/dL Normal 0.2-1.0 [facility] Comment on above: Performed By: #### C MREP #### [facility] [address] [place] [address] Dr. Sushant Prdahan Calcium [Mass/Vol] 8.6 mg/dL Normal 8.5-10.1 [facility] Comment on above: Performed By: #### C MREP #### [facility] [address] [place] [address] Dr. Sushant Pradhan Chloride [Moles/Vol] 97 mmol/L Critically low 98-107 [facility] Comment on above: Performed By: #### C MREP #### [facility] [address] [place] [address] Dr. Sushant Pradhan CO2 [Moles/Vol] 22.3 mmol/L Normal 21.0-32.0 [facility] Comment on above: Performed By: #### C MREP #### [facility] [address] [address] [address] Sushant Pradhan Creatinine [Mass/Vol] 0.61 mg/dL Critically low 0.70-1.30 [facility] Comment on above: Performed By: #### C MREP #### [facility] [address] [address] [address] Sushant Pradhan EGFR-AF PRYDEINIG >60 Normal >=60 [facility] Comment on above: Performed By: #### C MREP #### [facility] [address] [place] [address] Dr. Sushant Pradhan EGFR-NON AF PRYDEINIG >60 Normal >=60 [facility] Comment on above: Performed By: #### C MREP #### [facility] [address] [place] [address] Dr. Sushant Pradhan Globulin (S) [Mass/Vol] 3.8 g/dL Normal [facility] Comment on above: Performed By: #### C MREP #### [facility] [address] [place] [address] Dr. Sushant Pradhan Glucose [Mass/Vol] 79 mg/dL Normal 74-106 [facility] Comment on above: Performed By: #### C MREP #### [facility] [address] [place] [address] Dr. Sushant Pradhan Potassium [Moles/Vol] 3.8 mmol/L Normal 3.5-5.1 [facility] Comment on above: Performed By: #### C MREP #### [facility] [address] [place] [address] Dr. Sushant Pradhan Protein [Mass/Vol] 6.7 g/dL Normal 6.4-8.2 [facility] Comment on above: Performed By: #### C MREP #### [facility] [address] [place] [address] Dr. Sushant Pradhan Sodium [Moles/Vol] 132 mmol/L Critically low 136-145 [facility] Comment on above: Performed By: #### C MREP #### [facility] [address] [place], [place] [address] Dr. Sushant Pradhan Urea nitrogen [Mass/Vol] 5.0 mg/dL Critically low 7.0-18.0 [facility] Comment on above: Performed By: #### C MREP #### [facility] [address] [place], [place] [address] Dr. Sushant Pradhan Urea nitrogen/Creatinine [Mass ratio] 8.2 mg/mg Normal [facility] Comment on above: Performed By: #### C MREP #### [facility] [address] [place], [place] [address] Dr. Sushant Pradhan XR CHEST 1 Von [...] JESSE RAMOS Date: 2022-06-18 10:42 Normal [facility] Basophils Auto (Bld) [#/Vol] Ordered By: Jackie Fraga on 06-17-2022 Basophils (Bld) [#/Vol] 0.0 10*3/uL 0.0-0.2 [facility] Basophils/100 WBC Auto (Bld) Ordered By: Jackie Fraga on 06-17-2022 Basophils/100 WBC (Bld) 0.7 % . [facility] Creatinine and Glomerular fi ltration rate.predicted panel (S/P/Bld)Ordered By: Jackie Fraga on 06-17-2022 Creatinine [Mass/Vol] 0.91 mg/dL 0.64-1.27 [facility] Eosinophils Auto (Bld) [#/Vo l]Ordered By: Jackie Fraga on 06-17-2022 Eosinophils (Bld) [#/Vol] 0.2 10*3/uL 0.0-0.45 [facility] Eosinophils/100 WBC Auto (Bl d)Ordered By: Jackie Fraga on 06-17-2022 Eosinophils/100 WBC (Bld) 3.5 % . [facility] Erythrocyte distribution wid th Auto (RBC) [Ratio]Ordered By: Jackie Fraga on 06-17-2022 Erythrocyte distribution width (RBC) [Ratio] 15.8 % 12.0-14.8 [facility] Estimated glomerular filtrat ion rate (GFR) non- AmericanOrdered By: Jackie Fraga on 06-17-2022 GFR/1.73 sq M.predicted among non-blacks MDRD (S/P/Bld) [Vol rate/Area] > 60 mL/Min [facility] Hematocrit Auto (Bld) [Volum e fraction]Ordered By: Jackie Fraga on 06-17-2022 Hematocrit (Bld) [Volume fraction] 41.9 % 38.8-50.0 [facility] Hemoglobin [Mass/volume] in BloodOrdered By: Jackie Fraga on 06-17-2022 Hemoglobin (Bld) [Mass/Vol] 13.8 g/dL 13.0-17.0 [facility] Leukocytes [#/volume] correc chris for nucleated erythrocytes in Blood by Automated counOrdered By: Jackie Fraga on 06-17-2022 WBC corrected for nucl RBC Auto (Bld) [#/Vol] 6.1 10*3/uL 4.1-10.5 [facility] Lymphocytes Auto (Bld) [#/Vo l]Ordered By: Jackie Fraga on 06-17-2022 Lymphocytes (Bld) [#/Vol] 1.0 10*3/uL 1.00-4.8 [facility] Lymphocytes/100 WBC Auto (Bl d)Ordered By: Jackie Fraga on 06-17-2022 Lymphocytes/100 WBC (Bld) 16.6 % . [facility] MCH Auto (RBC) [Entitic mass ]Ordered By: Jackie Fraga on 06-17-2022 MCH (RBC) [Entitic mass] 32.9 pg 27.5-35.2 [facility] MCHC Auto (RBC) [Mass/Vol]Or dered By: Jackie Fraga on 06-17-2022 MCHC (RBC) [Mass/Vol] 33.1 g/dL 32.5-35.6 [facility] MCV Auto (RBC) [Entitic vol] Ordered By: Jackie Fraga on 06-17-2022 MCV (RBC) [Entitic vol] 99.4 fL 83.5-101 [facility] Monocytes Auto (Bld) [#/Vol] Ordered By: Jackie Fraga on 06-17-2022 Monocytes (Bld) [#/Vol] 0.8 10*3/uL 0.0-0.8 [facility] Monocytes/100 WBC Auto (Bld) Ordered By: Jackie Fraga on 06-17-2022 Monocytes/100 WBC (Bld) 13.3 % . [facility] Neutrophils Auto (Bld) [#/Vo l]Ordered By: Jackie Fraga on 06-17-2022 Neutrophils (Bld) [#/Vol] 4.0 10*3/uL 1.8-7.7 [facility] Neutrophils/100 WBC Auto (Bl d)Ordered By: Jackie Fraga on 06-17-2022 Neutrophils/100 WBC (Bld) 65.9 % . [facility] No Panel InformationOrdered By: Jackie Fraga on 06-17-2022 Estimated GFR () > 60 mL/Min [facility] Comment on above: GFR estimated refere nce range: According to KDOQI guidelines, <60 ml/min/1.73m2 is sufficient to diagnose a patient with chronic kidney disease. Pharmacy Creatinine Clearance (Chem 86.01 [facility] Nucleated erythrocytes [Pres ence] in Blood by Automated countOrdered By: Jackie Fraga on 06-17-2022 Nucleated RBC Auto Ql (Bld) 0.2 /100{WBC} 0-0.5 [facility] Platelet mean volume Auto (B ld) [Entitic vol]Ordered By: Jackie Fraga on 06-17-2022 Platelet mean volume (Bld) [Entitic vol] 7.7 fL 6.6-10.1 [facility] Platelets Auto (Bld) [#/Vol] Ordered By: Jackie Fraga on 06-17-2022 Platelets (Bld) [#/Vol] 185 10*3/uL 150-450 [facility] RBC Auto (Bld) [#/Vol]Ordere d By: Jackie Fraga on 06-17-2022 RBC (Bld) [#/Vol] 4.21 10*6/uL 3.90-5.60 [facility] Serum or plasma anion gap de terminationOrdered By: Jackie Fraga on 06-17-2022 Anion gap [Moles/Vol] 10.6 mmol/L 6.0-15.0 [facility] Serum or plasma calcium ledy urement (mass/volume)Ordered By: Jackie Fraga on 06-17-2022 Calcium [Mass/Vol] 8.6 mg/dL 8.2-10.2 [facility] Serum or plasma chloride carlyn surement (moles/volume)Ordered By: Jackie Fraga on 06-17-2022 Chloride [Moles/Vol] 99 mmol/L 95-114 [facility] Serum or plasma glucose ledy urement (mass/volume)Ordered By: Jackie Fraga on 06-17-2022 Glucose [Mass/Vol] 94 mg/dL 70-100 [facility] Comment on above: ADA recommended refe rence rangeRandom Glucose Reference Range is dependent on time and content of last meal. Glucose of more than 200 mg/dL in a nonstressed, ambulatory subject supports the diagnosis of Diabetes Mellitus. Serum or plasma potassium me asurement (moles/volume)Ordered By: Jackie Fraga on 06-17-2022 Potassium [Moles/Vol] 4.1 mmol/L 3.5-5.1 [facility] Serum or plasma sodium measu rement (moles/volume)Ordered By: Jackie Fraga on 06-17-2022 Sodium [Moles/Vol] 127 mmol/L 136-146 [facility] Serum or plasma total carbon dioxide measurement (moles/volume)Ordered By: Jackie Fraga on 06-17-2022 CO2 [Moles/Vol] 21.5 mmol/L 22.0-30.0 [facility] Serum or plasma urea nitroge n measurement (mass/volume)Ordered By: Jackie Fraga on 06-17-2022 Urea nitrogen [Mass/Vol] 10 mg/dL 9-23 [facility] TSH DL <= 0.005 mIU/L QnOrde red By: Jackie Fraga on 06-17-2022 TSH Qn 4.63 m[IU]/L 0.45-5.33 [facility] WBC Auto (Bld) [#/Vol]Ordere d By: Jackie Fraga on 06-17-2022 WBC (Bld) [#/Vol] 6.1 10*3/uL 4.1-10.5 [facility] Amphetamine Screen Ql (U)Ord ered By: Edward Hinds on 06-16-2022 Amphetamines Ql (U) Negative Negative [facility] Barbiturates [Presence] in U rineOrdered By: Edward Hinds on 06-16-2022 Barbiturates Ql (U) Negative Negative [facility] Benzodiazepines [Presence] i n UrineOrdered By: Edward Hinds on 06-16-2022 Benzodiazepines Ql (U) Negative Negative [facility] Cannabinoids [Presence] in U rine by Screen methodOrdered By: Edward Hinds on 06-16-2022 Cannabinoids Screen Ql (U) Positive Negative [facility] Comment on above: These are unconfirme d results and should not be used for legal purposes. Drug Cut-Off Concentration: AMPH 1000 ng/mL ZUNILDA 200 ng/mL SHIVANI 200 ng/mL COCM 300 ng/mL OP 300 ng/mL PCP 25 ng/mL THC 20 ng/mL Laboratory - Drug toxicology Ordered By: Edward Hinds on 06-16-2022 Opiates Ql (U) Negative Negative [facility] Phencyclidine Screen Ql (U)O rdered By: Edward Hinds on 06-16-2022 Phencyclidine Ql (U) Negative Negative [facility] Urine cocaine detectionOrder ed By: Edward Hinds on 06-16-2022 Cocaine Ql (U) Negative Negative [facility] Activated partial thrombopla stin time (aPTT) in platelet poor plasma by coagulation aOrdered By: Varghese Duval on 06-15-2022 aPTT Coag (PPP) [Time] 35.2 s 25.1-36.5 [facility] Basophils Auto (Bld) [#/Vol] Ordered By: Varghese Duval on 06-15-2022 Basophils (Bld) [#/Vol] 0.1 10*3/uL 0.0-0.2 [facility] Basophils/100 WBC Auto (Bld) Ordered By: Varghese Duval on 06-15-2022 Basophils/100 WBC (Bld) 1.0 % . [facility] Bilirubin Test strip Ql (U)O rdered By: Varghese Duval on 06-15-2022 Bilirubin Ql (U) Negative Negative [facility] Color Auto (U)Ordered By: Tanya Duval on 06-15-2022 Color (U) Yellow Yellow [facility] Creatinine and Glomerular fi ltration rate.predicted panel (S/P/Bld)Ordered By: Varghese Duval on 06-15-2022 Creatinine [Mass/Vol] 0.76 mg/dL 0.64-1.27 [facility] Eosinophils Auto (Bld) [#/Vo l]Ordered By: Varghese Duval on 06-15-2022 Eosinophils (Bld) [#/Vol] 0.3 10*3/uL 0.0-0.45 [facility] Eosinophils/100 WBC Auto (Bl d)Ordered By: Varghese Duval on 06-15-2022 Eosinophils/100 WBC (Bld) 4.9 % . [facility] Erythrocyte distribution wid th Auto (RBC) [Ratio]Ordered By: Varghese Duval on 06-15-2022 Erythrocyte distribution width (RBC) [Ratio] 15.9 % 12.0-14.8 [facility] Estimated glomerular filtrat ion rate (GFR) non- AmericanOrdered By: Varghese Duval on 06-15-2022 GFR/1.73 sq M.predicted among non-blacks MDRD (S/P/Bld) [Vol rate/Area] > 60 mL/Min [facility] Hematocrit Auto (Bld) [Volum e fraction]Ordered By: Varghese Duval on 06-15-2022 Hematocrit (Bld) [Volume fraction] 42.5 % 38.8-50.0 [facility] Hemoglobin [Mass/volume] in BloodOrdered By: Varghese Duval on 06-15-2022 Hemoglobin (Bld) [Mass/Vol] 14.3 g/dL 13.0-17.0 [facility] Ketones Auto test strip (U) [Mass/Vol]Ordered By: Varghese Duval on 06-15-2022 Ketones (U) [Mass/Vol] Negative Negative [facility] Laboratory - CoagulationOrde red By: Varghese Duval on 06-15-2022 PT Coag (PPP) [Time] 10.7 s 9.0-12.9 [facility] [facility] Leukocytes [#/volume] correc chris for nucleated erythrocytes in Blood by Automated counOrdered By: Varghese Duval on 06-15-2022 WBC corrected for nucl RBC Auto (Bld) [#/Vol] 5.4 10*3/uL 4.1-10.5 [facility] Lymphocytes Auto (Bld) [#/Vo l]Ordered By: Varghese Duval on 06-15-2022 Lymphocytes (Bld) [#/Vol] 1.0 10*3/uL 1.00-4.8 [facility] Lymphocytes/100 WBC Auto (Bl d)Ordered By: Varghese Duval on 06-15-2022 Lymphocytes/100 WBC (Bld) 19.3 % . [facility] MCH Auto (RBC) [Entitic mass ]Ordered By: Varghese Duval on 06-15-2022 MCH (RBC) [Entitic mass] 33.2 pg 27.5-35.2 [facility] MCHC Auto (RBC) [Mass/Vol]Or dered By: Varghese Duval on 06-15-2022 MCHC (RBC) [Mass/Vol] 33.5 g/dL 32.5-35.6 [facility] MCV Auto (RBC) [Entitic vol] Ordered By: Varghese Duval on 06-15-2022 MCV (RBC) [Entitic vol] 98.9 fL 83.5-101 [facility] Monocytes Auto (Bld) [#/Vol] Ordered By: Varghese Duval on 06-15-2022 Monocytes (Bld) [#/Vol] 0.5 10*3/uL 0.0-0.8 [facility] Monocytes/100 WBC Auto (Bld) Ordered By: Varghese Duval on 06-15-2022 Monocytes/100 WBC (Bld) 8.8 % . [facility] Neutrophils Auto (Bld) [#/Vo l]Ordered By: Varghese Duval on 06-15-2022 Neutrophils (Bld) [#/Vol] 3.6 10*3/uL 1.8-7.7 [facility] Neutrophils/100 WBC Auto (Bl d)Ordered By: Varghese Duval on 06-15-2022 Neutrophils/100 WBC (Bld) 66.0 % . [facility] Nitrite Test strip Ql (U)Ord ered By: Varghese Duval on 06-15-2022 Nitrite Ql (U) Negative Negative [facility] No Panel InformationOrdered By: Varghese Duval on 06-15-2022 Estimated GFR () > 60 mL/Min [facility] Comment on above: GFR estimated refere nce range: According to KDOQI guidelines, <60 ml/min/1.73m2 is sufficient to diagnose a patient with chronic kidney disease. Pharmacy Creatinine Clearance (Chem N/A [facility] Nucleated erythrocytes [Pres ence] in Blood by Automated countOrdered By: Varghese Duval on 06-15-2022 Nucleated RBC Auto Ql (Bld) 0.2 /100{WBC} 0-0.5 [facility] Platelet mean volume Auto (B ld) [Entitic vol]Ordered By: Varghese Duval on 06-15-2022 Platelet mean volume (Bld) [Entitic vol] 7.4 fL 6.6-10.1 [facility] Platelet poor plasma interna tional normalized ratio (INR) by coagulation assay (relatOrdered By: Varghese Duval on 06-15-2022 INR Coag (PPP) [Relative time] 0.9 {INR} [facility] Comment on above: INR Therapeutic Rang [...] 06-15-2022 Platelets (Bld) [#/Vol] 212 10*3/uL 150-450 [facility] Protein Auto test strip (U) [Mass/Vol]Ordered By: Varghese Duval on 06-15-2022 Protein (U) [Mass/Vol] Negative Negative [facility] RBC Auto (Bld) [#/Vol]Ordere d By: Varghese Duval on 06-15-2022 RBC (Bld) [#/Vol] 4.30 10*6/uL 3.90-5.60 [facility] Serum or plasma anion gap de terminationOrdered By: Varghese Duval on 06-15-2022 Anion gap [Moles/Vol] 14.4 mmol/L 6.0-15.0 [facility] Serum or plasma calcium ledy urement (mass/volume)Ordered By: Varghese Duval on 06-15-2022 Calcium [Mass/Vol] 8.5 mg/dL 8.2-10.2 [facility] Serum or plasma chloride carlyn surement (moles/volume)Ordered By: Varghese Duval on 06-15-2022 Chloride [Moles/Vol] 98 mmol/L 95-114 [facility] Serum or plasma glucose ledy urement (mass/volume)Ordered By: Varghese Duval on 06-15-2022 Glucose [Mass/Vol] 74 mg/dL 70-100 [facility] Comment on above: ADA recommended refe rence rangeRandom Glucose Reference Range is dependent on time and content of last meal. Glucose of more than 200 mg/dL in a nonstressed, ambulatory subject supports the diagnosis of Diabetes Mellitus. Serum or plasma potassium me asurement (moles/volume)Ordered By: Varghese Duval on 06-15-2022 Potassium [Moles/Vol] 4.2 mmol/L 3.5-5.1 [facility] Serum or plasma sodium measu rement (moles/volume)Ordered By: Varghese Duval on 06-15-2022 Sodium [Moles/Vol] 129 mmol/L 136-146 [facility] Serum or plasma total carbon dioxide measurement (moles/volume)Ordered By: Varghese Duval on 06-15-2022 CO2 [Moles/Vol] 20.8 mmol/L 22.0-30.0 [facility] Serum or plasma urea nitroge n measurement (mass/volume)Ordered By: Varghese Duval on 06-15-2022 Urea nitrogen [Mass/Vol] 4 mg/dL 9-23 [facility] Specific gravity Auto test s trip (U) [Rel density]Ordered By: Varghese Duval on 06-15-2022 Specific gravity (U) [Rel density] 1.008 1.001-1.030 [facility] Urine clarity by refractomet ry automatedOrdered By: Varghese Duval 06-15-2022 Clarity Refractometry automated (U) Clear Clear [facility] Urine glucose measurement by automated test strip (mass/volume)Ordered By: Varghese Duval on 06-15-2022 Glucose Auto test strip (U) [Mass/Vol] Normal mg/dL Normal [facility] Urine hemoglobin detection b y automated test stripOrdered By: Varghese Duval on 06-15-2022 Hemoglobin Auto test strip Ql (U) Negative Negative [facility] Urine leukocyte esterase det ection by automated test stripOrdered By: Varghese Duval on 06-15-2022 Leukocyte esterase Auto test strip Ql (U) Negative Negative [facility] Urobilinogen Auto test strip (U) [Mass/Vol]Ordered By: Varghese Duval on 06-15-2022 Urobilinogen (U) [Mass/Vol] Normal mg/dL Normal [facility] WBC Auto (Bld) [#/Vol]Ordere d By: Varghese Duval on 06-15-2022 WBC (Bld) [#/Vol] 5.4 10*3/uL 4.1-10.5 [facility] pH Auto test strip (U)Ordere d By: Varghese Duval on 06-15-2022 pH (U) 5.5 [pH] 5.0-9.[address] [facility] [address] chest w conon 06-01-2022 CT chest w con [facility] [employer] Other CT chest w con [facility] [employer] Other CT chest w con [address] [place] [address] [employer] [place] [address] No rt [employer] Other CT chest w con CT Scan Report [employer] Other CT chest w con Signed [employer] Other CT chest w con Patient: Gustavo Echols N MR#: [id number] [employer] Other CT chest w con [address] [employer] [address] chest w con : 1965 Acct:[id number] [employer] Other CT chest w con Age/Sex: 57 / M ADM Date: 06/01/[address] chest w con Loc: CT Room: Type: [facility] Other CT chest w con Attending Dr: Rachid Chase MD [employer] Other CT chest w con Copies to: Rachid whitlock MD [employer] Other CT chest w con Ordering Provider: Narinder Chase MD [employer] Other CT chest w con Date of Service: 06/01/[address] chest w con CT/CT chest w con: C34.[address] chest w con CT chest withcontrast [facility] Other CT chest w con TECHNIQUE: Axial adore ging with 2-D reconstruction. 83 cc of [id number] CT exam was performed [facility] Other CT chest w con using one or more th e following dose reduction techniques: Automated exposure control, adjustment of [facility] Other CT chest w con the MA and/or Kv according to patient size, or use of the iterative reconstruction technique. [employer] Other CT chest w con History: History of lung cancer. Chest tightness. Shortness of breath. [employer] Other CT chest w con COMPARISON: 04/10/[address] chest w con No thyroid abnormali ty [id number] present on the left. [employer] Other CT chest w con Central airway is patent. [employer] Other CT chest w con No esophageal abnormality identified. [employer] Other CT chest w con Heart is not enlarge d. No pericardial effusion is seen. [employer] Other CT chest w con Nonenlarged mediasti nal lymph nodes identified. No hilar mass or adenopathy is seen. [employer] Other CT chest w con No thoracic aortic aneurysm is seen. [employer] Other CT chest w con No lung nodules identified. [employer] Other CT chest w con No infiltrate or congestion identified. Developing medial right middle lobe atelectasis. Large [employer] Other CT chest w con right pleural effusi on redemonstrated. This is similar to prior examination. No pneumothorax seen. [employer] Other CT chest w con Emphysematous change s redemonstrated. [employer] Other CT chest w con No chest wall abnormality seen. The bony structures are intact. [employer] Other CT chest w con Images of the upper abdomen are noncontributory. [employer] Other CT chest w con C T/CT chest w con [facility] Other CT chest w con IMPRESSION: Developi ng medial right middle lobe atelectasis. Continued large right pleural [facility] Other CT chest w con effusion. Emphysema. [employer] Other CT chest w con Impression dictated by: Franklin Gomes M.D.06/01/2022 3:[address] chest w con Dictation Location: [place] [address] chest w con Transcribed By: MARU 06/01/[address] chest w con Dictated By: Franklin Gomes DO 06/01/[address] chest w con Signed By: [employer] Other CT chest w con 06/01/[address] [employer] Other Creatinine (Bld) [Mass/Vol]O rdered By: Rachid Chase on 06-01-2022 Creatinine [Mass/Vol] 0.8 mg/dL 0.6-1.3 [facility] Comment on above: ER/ESD physician is notified/shown all ISTAT results.Critical values may be confirmed by laboratory testing ifdeemed necessary by ER attending doctor. No Panel InformationOrdered By: Rachid Chase on 06-01-2022 POC Estimated GFR > 60 [facility] Comment on above: GFR estimated refere nce range: According to KDOQI guidelines, <60 ml/min/1.73m2 is sufficient to diagnose a patient with chronic kidney disease. POC Estimated GFR Non- Amer > 60 [facility] Activated partial thrombopla stin time (aPTT) in platelet poor plasma by coagulation aOrdered By: Estela Varma on 04-18-2022 aPTT Coag (PPP) [Time] 44.4 s 25.1-36.5 [facility] - CoagulationOrde red By: Estela Varma on 04-18-2022 PT Coag (PPP) [Time] 11.2 s 9.0-12.9 [facility] Platelet poor plasma interna tional normalized ratio (INR) by coagulation assay (relatOrdered By: Estela Varma on 04-18-2022 INR Coag (PPP) [Relative time] 1.0 {INR} [facility] Comment on above: INR Therapeutic Rang [...] 04-18-2022 Platelets (Bld) [#/Vol] 158 10*3/uL 150-450 [facility] Bacterial blood cultureOrder ed By: Tez Irene on 04-15-2022 Bacteria identified Cx Nom (Bld) NO GROWTH 5 DAYS [facility] Bacteria identified Anaer cx Nom (Unsp spec)Ordered By: Tez Irene on 04-14-2022 Anaerobic microbial culture No Anaerobes Isolated 3 Days [facility] ABO and Rh group post transf usion reaction Nom (Bld)Ordered By: Tez Irene on 04-12-2022 Microscopic observation Gram stain Nom (Unsp spec) [facility] Aerobic cultureOrdered By: Krystina Irene on 04-11-2022 Bacteria identified Aer cx Nom (Unsp spec) No Growth 2 Days [facility] Anaerobic cultureOrdered By: Tez Irene on 04-11-2022 Bacteria identified Anaer cx Nom (Unsp spec) No Anaerobes Isolated 3 Days [facility] Body fluid differential cell countOrdered By: Tez Irene on 04-11-2022 Differential panel (Body fld) 4 % [facility] Comment on above: The reference interv al and other method performance specifications have not been established for this body fluid. The test result must be integrated into the clinical context for interpretation. Differential panel (Body fld) 0 % [facility] Comment on above: The reference interv al and other method performance specifications have not been established for this body fluid. The test result must be integrated into the clinical context for interpretation. Body fluid protein measureme nt (mass/volume)Ordered By: Tez Irene on 04-11-2022 Protein (Body fld) [Mass/Vol] 3.8 g/dL [facility] Cells Counted Total [#] in B sarah fluidOrdered By: Tez Irene on 04-11-2022 Cells Counted Total (Body fld) [#] 1147 /uL [facility] Comment on above: The reference interv al and other method performance specifications have not been established for this body fluid. The test result must be integrated into the clinical context for interpretation. Color of Spun Body fluidOrde red By: Tez Irene on 04-11-2022 Color (Spun body fld) Straw [facility] Comment on above: The reference interv al and other method performance specifications have not been established for this body fluid. The test result must be integrated into the clinical context for interpretation. Determination of appearance of body fluidOrdered By: Tez Irene on 04-11-2022 Appearance (Body fld) Hazy [facility] Comment on above: The reference interv al and other method performance specifications have not been established for this body fluid. The test result must be integrated into the clinical context for interpretation. Erythrocytes [#/volume] in B sarah fluid by Automated countOrdered By: Tez Irene on 04-11-2022 RBC Auto (Body fld) [#/Vol] 59484 mm^3 [facility] Comment on above: The reference interv al and other method performance specifications have not been established for this body fluid. The test result must be integrated into the clinical context for interpretation. Evaluation of color of body fluidOrdered By: Tez Irene on 04-11-2022 Color (Body fld) Straw [facility] Comment on above: The reference interv al and other method performance specifications have not been established for this body fluid. The test result must be integrated into the clinical context for interpretation. Gram stain for investigation of transfusion reactionOrdered By: Tez Irene on 04-11-2022 Microscopic observation Gram stain Nom (Unsp spec) [facility] Lactate dehydrogenase measur ement (enzymatic activity/volume)Ordered By: Tez Irene on 04-11-2022 LDH (Unsp spec) [Catalytic activity/Vol] 88 [IU]/mL [facility] Comment on above: No reference range e stablished LDH (Unsp spec) [Catalytic activity/Vol] 100 U/L 45-190 [facility] Manual body fluid eosinophil s/100 leukocytesOrdered By: Tez Irene on 04-11-2022 Eosinophils/100 WBC Manual cnt (Body fld) 0 /100{WBC} 0-3 [facility] Manual body fluid lymphocyte s/100 leukocytesOrdered By: Tez Irene on 04-11-2022 Lymphocytes/100 WBC Manual cnt (Body fld) 61 % [facility] Comment on above: The reference interv al and other method performance specifications have not been established for this body fluid. The test result must be integrated into the clinical context for interpretation. Neutrophils/100 WBC Manual c nt (Body fld)Ordered By: Tez Irene on 04-11-2022 Neutrophils/100 WBC (Body fld) 35 % [facility] Comment on above: The reference interv al and other method performance specifications have not been established for this body fluid. The test result must be integrated into the clinical context for interpretation. Troponin I.cardiac [Mass/vol ume] in Serum or Plasma by High sensitivity methodOrdered By: Tez Irene on 04-11-2022 Troponin I.cardiac High sensitivity method [Mass/Vol] 5 pg/mL 0-20 [facility] Albumin [Mass/volume] in Ser um or PlasmaOrdered By: Kali Longo on 04-10-2022 Albumin [Mass/Vol] 3.3 g/dL 3.2-5.5 [facility] Albumin [Mass/volume] in Ser um or PlasmaOrdered By: Estela Varma on 04-10-2022 Albumin [Mass/Vol] 3.4 g/dL 3.2-5.5 [facility] Bacterial blood cultureOrder ed By: Tez Irene on 04-10-2022 Bacteria identified Cx Nom (Bld) NO GROWTH 5 DAYS [facility] Basophils Auto (Bld) [#/Vol] Ordered By: Kali Longo on 04-10-2022 Basophils (Bld) [#/Vol] 0.1 10*3/uL 0.0-0.2 [facility] Basophils Auto (Bld) [#/Vol] Ordered By: Estela Varma on 04-10-2022 Basophils (Bld) [#/Vol] 0.1 10*3/uL 0.0-0.2 [facility] Basophils/100 WBC Auto (Bld) Ordered By: Kali Longo on 04-10-2022 Basophils/100 WBC (Bld) 1.0 % . [facility] Basophils/100 WBC Auto (Bld) Ordered By: Estela Varma on 04-10-2022 Basophils/100 WBC (Bld) 0.9 % . [facility] Creatinine and Glomerular fi ltration rate.predicted panel (S/P/Bld)Ordered By: Kali Longo on 04-10-2022 Creatinine [Mass/Vol] 0.86 mg/dL 0.64-1.27 [facility] Creatinine and Glomerular fi ltration rate.predicted panel (S/P/Bld)Ordered By: Estela Varma on 04-10-2022 Creatinine [Mass/Vol] 0.92 mg/dL 0.64-1.27 [facility] Eosinophils Auto (Bld) [#/Vo l]Ordered By: Kali Longo on 04-10-2022 Eosinophils (Bld) [#/Vol] 0.1 10*3/uL 0.0-0.45 [facility] Eosinophils Auto (Bld) [#/Vo l]Ordered By: Estela Varma on 04-10-2022 Eosinophils (Bld) [#/Vol] 0.2 10*3/uL 0.0-0.45 [facility] Eosinophils/100 WBC Auto (Bl d)Ordered By: Kali Longo on 04-10-2022 Eosinophils/100 WBC (Bld) 1.5 % . [facility] Eosinophils/100 WBC Auto (Bl d)Ordered By: Estela Varma on 04-10-2022 Eosinophils/100 WBC (Bld) 2.9 % . [facility] Erythrocyte distribution wid th Auto (RBC) [Ratio]Ordered By: Kali Longo on 04-10-2022 Erythrocyte distribution width (RBC) [Ratio] 14.1 % 12.0-14.8 [facility] Erythrocyte distribution wid th Auto (RBC) [Ratio]Ordered By: Estela Varma on 04-10-2022 Erythrocyte distribution width (RBC) [Ratio] 14.6 % 12.0-14.8 [facility] Estimated glomerular filtrat ion rate (GFR) non- AmericanOrdered By: Kali Longo on 04-10-2022 GFR/1.73 sq M.predicted among non-blacks MDRD (S/P/Bld) [Vol rate/Area] > 60 mL/Min [facility] Estimated glomerular filtrat ion rate (GFR) non- AmericanOrdered By: Estlea Varma on 04-10-2022 GFR/1.73 sq M.predicted among non-blacks MDRD (S/P/Bld) [Vol rate/Area] > 60 mL/Min [facility] Globulin Calc (S) [Mass/Vol] Ordered By: Kali Longo on 04-10-2022 Globulin (S) [Mass/Vol] 3.1 g/dL [facility] Globulin Calc (S) [Mass/Vol] Ordered By: Estela Varma on 04-10-2022 Globulin (S) [Mass/Vol] 3.1 g/dL [facility] Hematocrit Auto (Bld) [Volum e fraction]Ordered By: Kali Longo on 04-10-2022 Hematocrit (Bld) [Volume fraction] 44.7 % 38.8-50.0 [facility] Hematocrit Auto (Bld) [Volum e fraction]Ordered By: Estela Varma on 04-10-2022 Hematocrit (Bld) [Volume fraction] 46.1 % 38.8-50.0 [facility] Hemoglobin [Mass/volume] in BloodOrdered By: Kali Longo on 04-10-2022 Hemoglobin (Bld) [Mass/Vol] 15.2 g/dL 13.0-17.0 [facility] Hemoglobin [Mass/volume] in BloodOrdered By: Estela Varma on 04-10-2022 Hemoglobin (Bld) [Mass/Vol] 15.5 g/dL 13.0-17.0 [facility] - Chemistry and C hemistry - challengeOrdered By: Kali Longo on 04-10-2022 Natriuretic peptide B (Bld) [Mass/Vol] 19.0 pg/mL 5-100 [facility] - Hematology and Cell countsOrdered By: Kali Longo on 04-10-2022 Nucleated RBC/100 WBC (Bld) [Ratio] 0.1 % 0-0.5 [facility] - Hematology and Cell countsOrdered By: Estela Varma on 04-10-2022 Nucleated RBC/100 WBC (Bld) [Ratio] 0.1 % 0-0.5 [facility] Leukocytes [#/volume] in Blo od by Automated countOrdered By: Kali Longo on 04-10-2022 WBC (Bld) [#/Vol] 6.1 10*3/uL 4.5-11.0 [facility] Leukocytes [#/volume] in Blo od by Automated countOrdered By: Estela Varma on 04-10-2022 WBC (Bld) [#/Vol] 6.3 10*3/uL 4.5-11.0 [facility] Lymphocytes Auto (Bld) [#/Vo l]Ordered By: Kali Longo on 04-10-2022 Lymphocytes (Bld) [#/Vol] 0.9 10*3/uL 1.00-4.8 [facility] Lymphocytes Auto (Bld) [#/Vo l]Ordered By: Estela Varma on 04-10-2022 Lymphocytes (Bld) [#/Vol] 1.0 10*3/uL 1.00-4.8 [facility] Lymphocytes/100 WBC Auto (Bl d)Ordered By: Kali Longo on 04-10-2022 Lymphocytes/100 WBC (Bld) 14.2 % . [facility] Lymphocytes/100 WBC Auto (Bl d)Ordered By: Estela Varma on 04-10-2022 Lymphocytes/100 WBC (Bld) 16.2 % . [facility] MCH Auto (RBC) [Entitic mass ]Ordered By: Kali Longo on 04-10-2022 MCH (RBC) [Entitic mass] 32.9 pg 27.5-35.2 [facility] MCH Auto (RBC) [Entitic mass ]Ordered By: Estela Varma on 04-10-2022 MCH (RBC) [Entitic mass] 32.6 pg 27.5-35.2 [facility] MCHC Auto (RBC) [Mass/Vol]Or dered By: Kali Longo on 04-10-2022 MCHC (RBC) [Mass/Vol] 33.9 g/dL 32.5-35.6 [facility] MCHC Auto (RBC) [Mass/Vol]Or dered By: Estela Varma on 04-10-2022 MCHC (RBC) [Mass/Vol] 33.6 g/dL 32.5-35.6 [facility] MCV Auto (RBC) [Entitic vol] Ordered By: Kali Longo on 04-10-2022 MCV (RBC) [Entitic vol] 96.9 fL 83.5-101 [facility] MCV Auto (RBC) [Entitic vol] Ordered By: Estela Varma on 04-10-2022 MCV (RBC) [Entitic vol] 97.2 fL 83.5-101 [facility] Monocytes Auto (Bld) [#/Vol] Ordered By: Kali Longo on 04-10-2022 Monocytes (Bld) [#/Vol] 0.6 10*3/uL 0.0-0.8 [facility] Monocytes Auto (Bld) [#/Vol] Ordered By: Estela Varma on 04-10-2022 Monocytes (Bld) [#/Vol] 0.5 10*3/uL 0.0-0.8 [facility] Monocytes/100 WBC Auto (Bld) Ordered By: Kali Longo on 04-10-2022 Monocytes/100 WBC (Bld) 9.9 % . [facility] Monocytes/100 WBC Auto (Bld) Ordered By: Estela Varma on 04-10-2022 Monocytes/100 WBC (Bld) 8.6 % . [facility] Neutrophils Auto (Bld) [#/Vo l]Ordered By: Kali Longo on 04-10-2022 Neutrophils (Bld) [#/Vol] 4.5 10*3/uL 1.8-7.7 [facility] Neutrophils Auto (Bld) [#/Vo l]Ordered By: Estela Varma on 04-10-2022 Neutrophils (Bld) [#/Vol] 4.5 10*3/uL 1.8-7.7 [facility] Neutrophils/100 WBC Auto (Bl d)Ordered By: Kali Longo on 04-10-2022 Neutrophils/100 WBC (Bld) 73.4 % . [facility] Neutrophils/100 WBC Auto (Bl d)Ordered By: Estela Varma on 04-10-2022 Neutrophils/100 WBC (Bld) 71.4 % . [facility] No Panel InformationOrdered By: Kali Longo on 04-10-2022 D-Dimer Quantitative (PE/DVT) 529 ng/mL 0-243 [facility] Comment on above: The reference range [...] conditions. Estimated GFR () > 60 mL/Min [facility] Comment on above: GFR estimated refere nce range: According to KDOQI guidelines, <60 ml/min/1.73m2 is sufficient to diagnose a patient with chronic kidney disease. Pharmacy Creatinine Clearance (Chem 92.25 [facility] No Panel InformationOrdered By: Estela Varma on 04-10-2022 Estimated GFR () > 60 mL/Min [facility] Comment on above: GFR estimated refere nce range: According to KDOQI guidelines, <60 ml/min/1.73m2 is sufficient to diagnose a patient with chronic kidney disease. Pharmacy Creatinine Clearance (Chem 89.21 [facility] Platelet mean volume Auto (B ld) [Entitic vol]Ordered By: Kali Longo on 04-10-2022 Platelet mean volume (Bld) [Entitic vol] 7.0 fL 6.6-10.1 [facility] Platelet mean volume Auto (B ld) [Entitic vol]Ordered By: Estela Varma on 04-10-2022 Platelet mean volume (Bld) [Entitic vol] 7.4 fL 6.6-10.1 [facility] Platelets Auto (Bld) [#/Vol] Ordered By: Kali Longo on 04-10-2022 Platelets (Bld) [#/Vol] 242 10*3/uL 150-450 [facility] Platelets Auto (Bld) [#/Vol] Ordered By: Estela Varma on 04-10-2022 Platelets (Bld) [#/Vol] 239 10*3/uL 150-450 [facility] Protein [Mass/volume] in Ser um or PlasmaOrdered By: Kali Longo on 04-10-2022 Protein [Mass/Vol] 6.4 g/dL 6.1-7.9 [facility] Protein [Mass/volume] in Ser um or PlasmaOrdered By: Estela Varma on 04-10-2022 Protein [Mass/Vol] 6.5 g/dL 6.1-7.9 [facility] RBC Auto (Bld) [#/Vol]Ordere d By: Kali Longo on 04-10-2022 RBC (Bld) [#/Vol] 4.61 10*6/uL 3.90-5.60 [facility] RBC Auto (Bld) [#/Vol]Ordere d By: Estela Varma on 04-10-2022 RBC (Bld) [#/Vol] 4.75 10*6/uL 3.90-5.60 [facility] Serum or plasma alanine glynn otransferase measurement without P-5'-P (enzymatic activiOrdered By: Kali Longo on 04-10-2022 ALT No additional P-5'-P [Catalytic activity/Vol] 13 U/L [facility] Serum or plasma alanine glynn otransferase measurement without P-5'-P (enzymatic activiOrdered By: Estela Varma on 04-10-2022 ALT No additional P-5'-P [Catalytic activity/Vol] 14 U/L [facility] Serum or plasma albumin/glob ulin mass ratioOrdered By: Kali Longo on 04-10-2022 Albumin/Globulin [Mass ratio] 1.1 {ratio} [facility] Serum or plasma albumin/glob ulin mass ratioOrdered By: Estela Varma on 04-10-2022 Albumin/Globulin [Mass ratio] 1.1 {ratio} [facility] Serum or plasma alkaline abhijit sphatase measurement (enzymatic activity/volume)Ordered By: Kali Longo on 04-10-2022 ALP [Catalytic activity/Vol] 127 U/L [facility] Serum or plasma alkaline abhijit sphatase measurement (enzymatic activity/volume)Ordered By: Estela Varma on 04-10-2022 ALP [Catalytic activity/Vol] 128 U/L [facility] Serum or plasma anion gap de terminationOrdered By: Kali Longo on 04-10-2022 Anion gap [Moles/Vol] 15.8 mmol/L 6.0-15.0 [facility] Serum or plasma anion gap de terminationOrdered By: Estela Varma on 04-10-2022 Anion gap [Moles/Vol] 17.3 mmol/L 6.0-15.0 [facility] Serum or plasma aspartate am inotransferase measurement (enzymatic activity/volume)Ordered By: Kali Longo on 04-10-2022 AST [Catalytic activity/Vol] 19 U/L [facility] Serum or plasma aspartate am inotransferase measurement (enzymatic activity/volume)Ordered By: Estela Varma on 04-10-2022 AST [Catalytic activity/Vol] 19 U/L [facility] Serum or plasma calcium ledy urement (mass/volume)Ordered By: Kali Longo on 04-10-2022 Calcium [Mass/Vol] 8.5 mg/dL 8.2-10.2 [facility] Serum or plasma calcium ledy urement (mass/volume)Ordered By: Estela Varma on 04-10-2022 Calcium [Mass/Vol] 8.5 mg/dL 8.2-10.2 [facility] Serum or plasma carcinoembry onic antigen measurement (mass/volume)Ordered By: Estela Varma on 04-10-2022 Carcinoembryonic Ag [Mass/Vol] 10.5 ng/mL 0.0-3.0 [facility] Serum or plasma chloride carlyn surement (moles/volume)Ordered By: Kali Longo on 04-10-2022 Chloride [Moles/Vol] 95 mmol/L 95-114 [facility] Serum or plasma chloride carlyn surement (moles/volume)Ordered By: Estela Varma on 04-10-2022 Chloride [Moles/Vol] 98 mmol/L 95-114 [facility] Serum or plasma glucose ledy urement (mass/volume)Ordered By: Kali Longo on 04-10-2022 Glucose [Mass/Vol] 75 mg/dL 70-100 [facility] Comment on above: ADA recommended refe rence rangeRandom Glucose Reference Range is dependent on time and content of last meal. Glucose of more than 200 mg/dL in a nonstressed, ambulatory subject supports the diagnosis of Diabetes Mellitus. Serum or plasma glucose ledy urement (mass/volume)Ordered By: Estela Varma on 04-10-2022 Glucose [Mass/Vol] 73 mg/dL 70-100 [facility] Comment on above: ADA recommended refe rence rangeRandom Glucose Reference Range is dependent on time and content of last meal. Glucose of more than 200 mg/dL in a nonstressed, ambulatory subject supports the diagnosis of Diabetes Mellitus. Serum or plasma potassium me asurement (moles/volume)Ordered By: Kali Longo on 04-10-2022 Potassium [Moles/Vol] 4.2 mmol/L 3.5-5.1 [facility] Serum or plasma potassium me asurement (moles/volume)Ordered By: Estela Varma on 04-10-2022 Potassium [Moles/Vol] 4.0 mmol/L 3.5-5.1 [facility] Serum or plasma sodium measu rement (moles/volume)Ordered By: Kali Longo on 04-10-2022 Sodium [Moles/Vol] 130 mmol/L 136-146 [facility] Serum or plasma sodium measu rement (moles/volume)Ordered By: Estela Varma on 04-10-2022 Sodium [Moles/Vol] 131 mmol/L 136-146 [facility] Serum or plasma total biliru bin measurement (mass/volume)Ordered By: Kali Longo on 04-10-2022 Bilirubin [Mass/Vol] 0.6 mg/dL 0.3-1.2 [facility] Serum or plasma total biliru bin measurement (mass/volume)Ordered By: Estela Varma on 04-10-2022 Bilirubin [Mass/Vol] 0.7 mg/dL 0.3-1.2 [facility] Serum or plasma total carbon dioxide measurement (moles/volume)Ordered By: Kali Longo on 04-10-2022 CO2 [Moles/Vol] 23.4 mmol/L 22.0-30.0 [facility] Serum or plasma total carbon dioxide measurement (moles/volume)Ordered By: Estela Varma on 04-10-2022 CO2 [Moles/Vol] 19.7 mmol/L 22.0-30.0 [facility] Serum or plasma urea nitroge n measurement (mass/volume)Ordered By: Kali Longo on 04-10-2022 Urea nitrogen [Mass/Vol] 7 mg/dL 9-23 [facility] Serum or plasma urea nitroge n measurement (mass/volume)Ordered By: Estela Varma on 04-10-2022 Urea nitrogen [Mass/Vol] 7 mg/dL 02-03 [facility] TSH DL <= 0.005 mIU/L QnOrde red By: Estela Varma on 04-10-2022 TSH Qn 2.57 m[IU]/L 0.45-5.33 [facility] Troponin I.cardiac [Mass/vol ume] in Serum or Plasma by High sensitivity methodOrdered By: Kali Longo on 04-10-2022 Troponin I.cardiac High sensitivity method [Mass/Vol] 5 pg/mL [facility] Creatinine and Glomerular fi ltration rate.predicted panel (S/P/Bld)Ordered By: Estela Varma on 01-03-2022 Creatinine [Mass/Vol] 0.69 mg/dL 0.64-1.27 [facility] Estimated glomerular filtrat ion rate (GFR) non- AmericanOrdered By: Estela Varma on 01-03-2022 GFR/1.73 sq M.predicted among non-blacks MDRD (S/P/Bld) [Vol rate/Area] > 60 mL/Min [facility] No Panel InformationOrdered By: Estela Varma on 01-03-2022 Estimated GFR () > 60 mL/Min [facility] Comment on above: GFR estimated refere nce range: According to KDOQI guidelines, <60 ml/min/1.73m2 is sufficient to diagnose a patient with chronic kidney disease. Pharmacy Creatinine Clearance (Chem 122.86 [facility] Serum or plasma urea nitroge n measurement (mass/volume)Ordered By: Estela Varma on 01-03-2022 Urea nitrogen [Mass/Vol] 3 mg/dL 02-03 [facility] Office Visit (Cardiology)on 11-29-2021 Follow-up visit Diagnoses/Problems Assessed Lung cancer (162.9) (C34.90) Chest pain (786.50) (R07.9) Former smoker (V15.82) (Z87.891) quit 2020 1ppd Body mass index (BMI) of 20.0 to 20.9 in adult (V85.1) (Z68.20) COPD (chronic obstructive pulmonary disease) (496) (J44.9) Orders Health Maintenance Depression Follow-up Visit Outpatient Follow-up Status: Complete Done: [id number] SocHx: Former smoker Tobacco Use Screening; Status:Complete; Done: [id number] Patient Instructions By signing my name below, I, Farhat Ackerman RN ,Scribe, attest that this documentation has been prepared under the direction and in the presence of Dr. Lukas Oliveira DO. All medical record entries made by the Andreinaiblogan were at my direction and personally dictated [...] Complaint Follow up Heart Cath results. 56-year-old Afro-[place] gentleman returns with chief complaints of chest [...] catheterization performed this year Recommendations: We did financial health counselor him on seeking further assistance in regards to his depression, increasing protein intake given his weight loss and seeking out further either ENT or pulmonary evaluation for his swallowing difficulty. We will follow-up on as-needed basis Surgical History Problems History of Arm surgery History of Complete colonoscopy Managed By: Eris HANEY, [place] 2016 History of Vasectomy History of Venous [...] negative for complaint. Vitals Vital Signs Recorded: [id number] 09:05AM Heart Rate96, R Radial Mbsqtaeh862, RUE, Sitting Tdgqwoonv31, RUE, Sitting Blood Pressure Cuff SizeAdult Height6 ft Lvqjop206 lb 8 oz BMI Hdocrtrrfn34.28 kg/m2 BSA Calculated1.88 Tobacco Useb) No (more content not included)... Normal [facility] CARDIAC SONIA 3-6on 2 CK [Catalytic activity/Vol] 55 U/L Normal 39-308 [facility] Comment on above: Performed By: #### C MREP #### [facility] [address] [address] [address] Sushant Pradhan CK.MB [Mass/Vol] 1.25 ng/mL Normal <=3.60 [facility] Comment on above: Performed By: #### C MREP #### [facility] [address] [address] [address] Sushant Pradhan HSTROP 4.5 pg/mL Normal 4.0-76.1 [facility] Comment on above: Result Comment: CUT- OFF POINTS HAVE BEEN ESTABLISHED BASED ON THE FOURTH UNIVERSAL DEFINITIONS OF MYOCARDIAL INFARCTION. THE UPPER REFERENCE LIMIT (URL) OF TROPONIN, DEFINED THE 99TH PERCENTILE OF cTnI DISTRIBUTION IN A REFERENCE POPULATION, HAS BEEN CONFIRMED THE DECISION THRESHOLD FOR CO DIAGNOSIS. Performed By: #### C MREP #### [facility] [address] [address] [address] Sushant Pradhan CBC AUTO DIFFon 11-24-2021 BASO # 0.0 103/ul Normal 0.0-0.1 [facility] Comment on above: Performed By: #### C BC #### [facility] [address] [address] [address] Sushant Pradhan Basophils/100 WBC (Bld) 0.2 % Normal 0.2-2.0 [facility] Comment on above: Performed By: #### C BC #### [facility] [address] [address] [address] Sushant Pradhan EO # 0.0 103/ul Normal 0.0-0.7 [facility] Comment on above: Performed By: #### C BC #### [facility] [address] [address] [address] Sushant Pradhan Eosinophils/100 WBC (Bld) 0.0 % Critically low 0.9-7.0 [facility] Comment on above: Performed By: #### C BC #### [facility] [address] [place] [address] Dr. Sushant Pradhan Erythrocyte distribution width (RBC) [Ratio] 14.7 % Normal 11.0-15.0 [facility] Comment on above: Performed By: #### C BC #### [facility] [address] [place] [address] Dr. Sushant Pradhan Hematocrit (Bld) [Volume fraction] 35.5 % Critically low 42.0-54.0 [facility] Comment on above: Performed By: #### C BC #### [facility] [address] [place] [address] Dr. Sushant Pradhan Hemoglobin (Bld) [Mass/Vol] 12.8 g/dL Critically low 14.0-18.0 [facility] Comment on above: Performed By: #### C BC #### [facility] [address] [place] [address] Dr. Sushant Pradhan IG # 0.01 10e3/ul Normal 0.00-0.03 [facility] Comment on above: Performed By: #### C BC #### [facility] [address] [place] [address] Dr. Sushant Pradhan IG % 0.2 % Normal 0.0-0.5 [facility] Comment on above: Performed By: #### C BC #### [facility] [address] [place] [address] Dr. Sushant Pradhan LYMPH # 0.5 103/ul Critically low 1.2-3.8 [facility] Comment on above: Performed By: #### C BC #### [facility] [address] [place] [address] Dr. Sushant Pradhan Lymphocytes/100 WBC (Bld) 8.2 % Critically low 20.5-60.0 [facility] Comment on above: Performed By: #### C BC #### [facility] [address] [place] [address] Dr. Sushant Pradhan MANUAL DIFF REQ NO Normal [facility] Comment on above: Performed By: #### C BC #### [facility] [address] [address] [address] Sushant Pradhan MCH (RBC) [Entitic mass] 32.5 pg Normal 25.9-34.0 [facility] Comment on above: Performed By: #### C BC #### [facility] [address] [place] [address] Dr. Sushant Pradhan MCHC (RBC) [Mass/Vol] 36.1 g/dL Critically high 29.9-35.2 [facility] Comment on above: Performed By: #### C BC #### [facility] [address] [place] [address] Dr. Sushant Pradhan MCV (RBC) [Entitic vol] 90.1 fL Normal 80.0-94.0 [facility] Comment on above: Performed By: #### C BC #### [facility] [address] [place] [address] Dr. Sushant Pradhan MONO # 0.2 103/ul Critically low 0.3-0.8 [facility] Comment on above: Performed By: #### C BC #### [facility] [address] [place] [address] Dr. Sushant Pradhan Monocytes/100 WBC (Bld) 3.5 % Normal 1.7-12.0 [facility] Comment on above: Performed By: #### C BC #### [facility] [address] [place] [address] Dr. Sushant Pradhan NEUT # 4.8 103/ul Normal 1.4-6.5 [facility] Comment on above: Performed By: #### C BC #### [facility] [address] [place] [address] Dr. Sushant Pradhan Neutrophils/100 WBC (Bld) 87.9 % Critically high 43.0-75.0 [facility] Comment on above: Performed By: #### C BC #### [facility] [address] [place] [address] Dr. Sushant Pradhan Platelet mean volume (Bld) [Entitic vol] 9.4 fL Critically low 9.5-13.5 [facility] Comment on above: Performed By: #### C BC #### [facility] [address] [address] [address] Sushant Pradhan PLT 135 103/ul Critically low 150-450 [facility] Comment on above: Performed By: #### C BC #### [facility] [address] [address] [address] Sushant Pradhan RBC 3.94 106/ul Critically low 4.70-6.10 [facility] Comment on above: Performed By: #### C BC #### [facility] [address] [address] [address] Sushant Pradhan WBC 5.5 103/ul Normal 4.0-11.0 [facility] Comment on above: Performed By: #### C BC #### [facility] [address] [place] [address] Dr. Sushant Pradhan LIPID PROFILEon 11-24-2021 CHOL-HDL RATIO NORM SEE BELOW Normal [facility] Comment on above: Result Comment: 3.3 - 4.4 LOW RISK 4.4 - 7.1 AVERAGE RISK 7.1 - 11.0 MODERATE RISK >11.0 HIGH RISK Performed By: #### L IPID, BMP #### [facility] [address] [place] [address] Dr. Sushant Pradhan Cholesterol [Mass/Vol] 126 mg/dL Normal <=200 [facility] Comment on above: Performed By: #### L IPID, BMP #### [facility] [address] [place] [address] Dr. Sushant Pradhan Cholesterol in HDL [Mass/Vol] 73 mg/dL Critically high 40-60 [facility] Comment on above: Performed By: #### L IPID, BMP #### [facility] [address] [place] [address] Dr. Sushant Pradhan Cholesterol in LDL [Mass/Vol] 44.2 mg/dL Normal [facility] Comment on above: Performed By: #### L IPID, BMP #### [facility] [address] [place] [address] Dr. Sushant Pradhan Cholesterol.total/Cho lesterol in HDL [Mass ratio] 1.7 {ratio} Normal [facility] Comment on above: Performed By: #### L IPID, BMP #### [facility] [address] [address] [address] Sushant Pradhan HDL NORMAL > or = 60 mg/dl - LO W CARDIOVASCULAR RISK <40 mg/dl - HIGH CARDIOVASCULAR RISK Normal [facility] Comment on above: Performed By: #### L IPID, BMP #### [facility] [address] [address] [address] Sushant Pradhan LDL CALC NORMAL SEE BELOW Normal [facility] Comment on above: Result Comment: <100 mg/dl OPTIMAL 100 - 129 mg/dl NEAR OR ABOVE OPTIMAL 130 - 159 mg/dl BORDERLINE HIGH 160 - 189 mg/dl HIGH >190 mg/dl VERY HIGH Performed By: #### L IPID, BMP #### [facility] [address] [address] [address] Sushant Pradhan Triglyceride [Mass/Vol] 44 mg/dL Normal <=150 [facility] Comment on above: Performed By: #### L IPID, BMP #### [facility] [address] [address] [address] Sushant Pradhan VLDL CALC 8.8 mg/dL Normal [facility] Comment on above: Performed By: #### L IPID, BMP #### [facility] [address] [address] [address] Sushant Pradhan NM STRESS/REST MULTIon 11-24 NM STRESS/REST MULTI Patient: EDISON ECHOLS N. Exam Date: 11/24/2021 : 1965 Gender:M Ordering : DR LIZBET LARA . Admission #: [id number] Family : Order #: [id number] CLICK HERE TO VIEW EXAM RADIOLOGY REPORT [...] Pagan MD on 11/24/2021 at 15:06 Normal [facility] PROF CHEM 8 (BAS METB)on Anion gap [Moles/Vol] 10.7 mmol/L Normal [facility] Comment on above: Performed By: #### L IPID, BMP #### [facility] [address] [address] [address] Sushant Pradhan Calcium [Mass/Vol] 8.5 mg/dL Normal 8.5-10.1 [facility] Comment on above: Performed By: #### L IPID, BMP #### [facility] [address] [address] [address] Sushant Pradhan Chloride [Moles/Vol] 96 mmol/L Critically low 98-107 [facility] Comment on above: Performed By: #### L IPID, BMP #### [facility] [address] [address] [address] Sushant Pradhan CO2 [Moles/Vol] 22.0 mmol/L Normal 21.0-32.0 [facility] Comment on above: Performed By: #### L IPID, BMP #### [facility] [address] [address] [address] Sushant Pradhan Creatinine [Mass/Vol] 1.04 mg/dL Normal 0.70-1.30 [facility] Comment on above: Performed By: #### L IPID, BMP #### [facility] [address] [address] [address] Sushant Pradhan EGFR-AF PRYDEINIG >60 Normal >=60 [facility] Comment on above: Performed By: #### L IPID, BMP #### [facility] [address] [address] [address] Sushant Pradhan EGFR-NON AF PRYDEINIG >60 Normal >=60 [facility] Comment on above: Performed By: #### L IPID, BMP #### [facility] [address] [address] [address] Sushant Pradhan Glucose [Mass/Vol] 139 mg/dL Critically high 74-106 [facility] Comment on above: Performed By: #### L IPID, BMP #### [facility] [address] [place] [address] Dr. Sushant Pradhan Potassium [Moles/Vol] 4.2 mmol/L Normal 3.5-5.1 [facility] Comment on above: Performed By: #### L IPID, BMP #### [facility] [address] [address] [address] Sushant Pradhan Sodium [Moles/Vol] 127 mmol/L Critically low 136-145 [facility] Comment on above: Performed By: #### L IPID, BMP #### [facility] [address] [address] [address] Sushant Pradhan Urea nitrogen [Mass/Vol] 12.0 mg/dL Normal 7.0-18.0 [facility] Comment on above: Performed By: #### L IPID, BMP #### [facility] [address] [address] [address] Sushant Pradhan Urea nitrogen/Creatinine [Mass ratio] 11.5 mg/mg Normal [facility] Comment on above: Performed By: #### L IPID, BMP #### [facility] [address] [address] [address] Sushant Pradhan BNPon 11-23-2021 Natriuretic peptide B (Bld) [Mass/Vol] 189.0 pg/mL Normal <=900.0 [facility] Comment on above: Performed By: #### B POULTRY BUYER, HSTROPN, BMP #### [facility] [address] [place] [address] Dr. Sushant Pradhan CARDIAC SONIA 3-6on 2 CK [Catalytic activity/Vol] 73 U/L Normal 39-308 [facility] Comment on above: Performed By: #### C MREP #### [facility] [address] [place] [address] Dr. Sushant Pradhan CK.MB [Mass/Vol] 1.78 ng/mL Normal <=3.60 [facility] Comment on above: Performed By: #### C MREP #### [facility] [address] [place] [address] Dr. Sushant Pradhan HSTROP 4.2 pg/mL Normal 4.0-76.1 [facility] Comment on above: Result Comment: CUT- OFF POINTS HAVE BEEN ESTABLISHED BASED ON THE FOURTH UNIVERSAL DEFINITIONS OF MYOCARDIAL INFARCTION. THE UPPER REFERENCE LIMIT (URL) OF TROPONIN, DEFINED THE 99TH PERCENTILE OF cTnI DISTRIBUTION IN A REFERENCE POPULATION, HAS BEEN CONFIRMED THE DECISION THRESHOLD FOR CO DIAGNOSIS. Performed By: #### C MREP #### [facility] [address] [place] [address] Dr. Sushant Pradhan CBC AUTO DIFFon 11-23-2021 BASO # 0.0 103/ul Normal 0.0-0.1 [facility] Comment on above: Performed By: #### C BC #### [facility] [address] [place] [address] Dr. Sushant Pradhan Basophils/100 WBC (Bld) 0.5 % Normal 0.2-2.0 [facility] Comment on above: Performed By: #### C BC #### [facility] [address] [place] [address] Dr. Sushant Pradhan EO # 0.1 103/ul Normal 0.0-0.7 [facility] Comment on above: Performed By: #### C BC #### [facility] [address] [place] [address] Dr. Sushant Pradhan Eosinophils/100 WBC (Bld) 0.9 % Normal 0.9-7.0 [facility] Comment on above: Performed By: #### C BC #### [facility] [address] [place] [address] Dr. Sushant Pradhan Erythrocyte distribution width (RBC) [Ratio] 15.3 % Critically high 11.0-15.0 [facility] Comment on above: Performed By: #### C BC #### [facility] [address] [place] [address] Dr. Sushant Pradhan Hematocrit (Bld) [Volume fraction] 38.7 % Critically low 42.0-54.0 [facility] Comment on above: Performed By: #### C BC #### [facility] [address] [place] [address] Dr. Sushant Pradhan Hemoglobin (Bld) [Mass/Vol] 14.0 g/dL Normal 14.0-18.0 [facility] Comment on above: Performed By: #### C BC #### [facility] [address] [place] [address] Dr. Sushant Pradhan IG # 0.01 10e3/ul Normal 0.00-0.03 [facility] Comment on above: Performed By: #### C BC #### [facility] [address] [place] [address] Dr. Sushant Pradhan IG % 0.2 % Normal 0.0-0.5 [facility] Comment on above: Performed By: #### C BC #### [facility] [address] [place] [address] Dr. Sushant Pradhan LYMPH # 1.1 103/ul Critically low 1.2-3.8 [facility] Comment on above: Performed By: #### C BC #### [facility] [address] [place] [address] Dr. Sushant Pradhan Lymphocytes/100 WBC (Bld) 17.2 % Critically low 20.5-60.0 [facility] Comment on above: Performed By: #### C BC #### [facility] [address] [place] [address] Dr. Sushant Pradhan MANUAL DIFF REQ NO Normal [facility] Comment on above: Performed By: #### C BC #### [facility] [address] [place] [address] Dr. Sushant Pradhan MCH (RBC) [Entitic mass] 32.7 pg Normal 25.9-34.0 [facility] Comment on above: Performed By: #### C BC #### [facility] [address] [place] [address] Dr. Sushant Pradhan MCHC (RBC) [Mass/Vol] 36.2 g/dL Critically high 29.9-35.2 [facility] Comment on above: Performed By: #### C BC #### [facility] [address] [place] [address] Dr. Sushant Pradhan MCV (RBC) [Entitic vol] 90.4 fL Normal 80.0-94.0 [facility] Comment on above: Performed By: #### C BC #### [facility] [address] [place] [address] Dr. Sushant Pradhan MONO # 0.5 103/ul Normal 0.3-0.8 [facility] Comment on above: Performed By: #### C BC #### [facility] [address] [place] [address] Dr. Sushant Pradhan Monocytes/100 WBC (Bld) 7.8 % Normal 1.7-12.0 [facility] Comment on above: Performed By: #### C BC #### [facility] [address] [place] [address] Dr. Sushant Pradhan NEUT # 4.7 103/ul Normal 1.4-6.5 [facility] Comment on above: Performed By: #### C BC #### [facility] [address] [place] [address] Dr. Sushant Pradhan Neutrophils/100 WBC (Bld) 73.4 % Normal 43.0-75.0 [facility] Comment on above: Performed By: #### C BC #### [facility] [address] [place] [address] Dr. Sushant Pradhan Platelet mean volume (Bld) [Entitic vol] 9.1 fL Critically low 9.5-13.5 [facility] Comment on above: Performed By: #### C BC #### [facility] [facility] [address] [place] [address] Dr. Sushant Pradhan PLT 153 103/ul Normal 150-450 [facility] Comment on above: Performed By: #### C BC #### [facility] [address] [address] [address] Sushant Pradhan RBC 4.28 106/ul Critically low 4.70-6.10 [facility] Comment on above: Performed By: #### C BC #### [facility] [address] [place] [address] Dr. Sushant Pradhan WBC 6.4 103/ul Normal 4.0-11.0 [facility] Comment on above: Performed By: #### C BC #### [facility] [address] [place] [address] Dr. Sushant Pradhan CTA CHEST WO W [...] by: MARCE PAGAN Date: 2021-11-23 15:47 Normal [facility] Covid-19 PCR (CVDTBH)on 11-11 SARS-CoV-2 (COVID-19) RNA DEANA+probe Ql (Unsp spec) Not detected Normal NOT DETECTED [facility] Comment on above: Result Comment: When diagnostic [...] for this test is supported by the [employer] of Health and Human Service's declaration that [...] used). Performed By: #### C BC #### [facility] [address] [place] [address] Dr. Sushant Pradhan PROF CHEM 8 (BAS METB)on Anion gap [Moles/Vol] 13.9 mmol/L Normal [facility] Comment on above: Performed By: #### B POULTRY BUYER, HSTROPN, BMP #### [facility] [address] [place] [address] Dr. Sushant Pradhan Calcium [Mass/Vol] 8.4 mg/dL Critically low 8.5-10.1 [facility] Comment on above: Performed By: #### B POULTRY BUYER, HSTROPN, BMP #### [facility] [address] [place] [address] Dr. Sushant Pradhan Chloride [Moles/Vol] 94 mmol/L Critically low 98-107 [facility] Comment on above: Performed By: #### B POULTRY BUYER, HSTROPN, BMP #### [facility] [address] [place] [address] Dr. Sushant Pradhan CO2 [Moles/Vol] 24.7 mmol/L Normal 21.0-32.0 [facility] Comment on above: Performed By: #### B POULTRY BUYER, HSTROPN, BMP #### [facility] [address] [place] [address] Dr. Sushant Pradhan Creatinine [Mass/Vol] 0.97 mg/dL Normal 0.70-1.30 [facility] Comment on above: Performed By: #### B POULTRY BUYER, HSTROPN, BMP #### [facility] [address] [place] [address] Dr. Sushant Pradhan EGFR-AF PRYDEINIG >60 Normal >=60 [facility] Comment on above: Performed By: #### B POULTRY BUYER, HSTROPN, BMP #### [facility] [address] [place] [address] Dr. Sushant Pradhan EGFR-NON AF PRYDEINIG >60 Normal >=60 [facility] Comment on above: Performed By: #### B POULTRY BUYER, HSTROPN, BMP #### [facility] [address] [place] [address] Dr. Sushant Pradhan Glucose [Mass/Vol] 76 mg/dL Normal 74-106 [facility] Comment on above: Performed By: #### B POULTRY BUYER, HSTROPN, BMP #### [facility] [address] [place] [address] Dr. Sushant Pradhan Potassium [Moles/Vol] 4.6 mmol/L Normal 3.5-5.1 [facility] Comment on above: Performed By: #### B POULTRY BUYER, HSTROPN, BMP #### [facility] [address] [place] [address] Dr. Sushant Pradhan Sodium [Moles/Vol] 128 mmol/L Critically low 136-145 [facility] Comment on above: Performed By: #### B POULTRY BUYER, HSTROPN, BMP #### [facility] [address] [place] [address] Dr. Sushant Pradhan Urea nitrogen [Mass/Vol] 9.0 mg/dL Normal 7.0-18.0 [facility] Comment on above: Performed By: #### B POULTRY BUYER, HSTROPN, BMP #### [facility] [address] [place], [place] [address] Dr. Sushant Pradhan Urea nitrogen/Creatinine [Mass ratio] 9.3 mg/mg Normal [facility] Comment on above: Performed By: #### B POULTRY BUYER, HSTROPN, BMP #### [facility] [address] [place], [place] [address] Dr. Sushant Pradhan TROPONIN, HIGH SENSITIVITYon 11-23-2021 HSTROP 4.4 pg/mL Normal 4.0-76.1 [facility] Comment on above: Result Comment: CUT- OFF POINTS HAVE BEEN ESTABLISHED BASED ON THE FOURTH UNIVERSAL DEFINITIONS OF MYOCARDIAL INFARCTION. THE UPPER REFERENCE LIMIT (URL) OF TROPONIN, DEFINED THE 99TH PERCENTILE OF cTnI DISTRIBUTION IN A REFERENCE POPULATION, HAS BEEN CONFIRMED THE DECISION THRESHOLD FOR CO DIAGNOSIS. Performed By: #### B POULTRY BUYER, HSTROPN, BMP #### [facility] [address] [place], [place] [address] Dr. Sushant Pradhan Laboratory - Chemistry and C hemistry - challengeon 09-09-2021 Cholesterol [Mass/Vol] 125\S\125 below low threshold 140-200 [facility] y [address] DO Work Phone: Comment on above: Chol less than 200 m g/dl low risk Chol 201-239 mg/dl borderline risk Chol 240 mg/dl and greater high risk Cholesterol in LDL [Mass/Vol] 46\S\46 Normal 0-100 [facility] y 250 DO Work Phone: Comment on above: LDL ATP III CLASSIFI CATION LDL less than 100 mg/dL Optimal LDL 100-129 mg/dL Near or above optimal LDL 130-159 mg/dL Borderline high LDL 160-189 mg/dL High LDL greater than 189 mg/dL Very high Laboratory - Microbiology an d Antimicrobial susceptibilityon 09-09-2021 SARS-CoV-2 (COVID-19) RNA DEANA+probe Ql (Unsp spec) [facility] y 250 DO Work Phone: No Panel Informationon 09-09 78.5\S\78.5 above high threshold 25.1-36.5 [facility] y 250 DO Work Phone: Comment on above: PERFORMED BY:[facility] [place] [place], [place] [phone] MEDICAL DIRECTORCATY DELCID M.D. 1.0\S\1.0 Normal [facility] y 250 DO Work Phone: [...] valves: 3 - 4.5 11.5\S\11.5 Normal 9.0-12.9 [facility] [address] DO Work Phone: 1.8\S\1.8 Normal <5.0 [facility] 250 DO Work Phone: Comment on above: PERFORMED BY:[facility], [place] [phone] MEDICAL DIRECTORCATY DELCID M.D. 11\S\11 Normal [facility] 250 DO Work Phone: 57\S\57 Normal 35-149 [facility] DO Work Phone: Comment on above: TRIG ATP III CLASSIF ICATION TRIG less than 150 mg/dL Normal TRIG 150-199 mg/dL Borderline high TRIG 200-500 mg/dL High TRIG greater than 500 mg/dL Very high Standard traceable to the Center for Disease Conrtrol and Prevention (CDC) test method. 68\S\68 Normal 29-71 [facility] [address] DO Work Phone: Comment on above: HDL CHOL ATP-III CLA SSIFICATION Cardiovascular Risk HDL > or equal to 60 mg/dL LOW HDL < 40 mg/dL HIGH Negative Normal Negative -[facility] y 250 DO Work Phone: Comment on above: This is a duplicate Jonna SARS Antigen (EROS) result to be used for statistical tracking purpose only.PERFORMED BY:[facility] [place] [phone] MEDICAL DIRECTORCATY DELCID M.D. Office Visit (Cardiology)on [...] IO EKG Electrocardiogram- 12 Lead; Status:Complete; Done: [id number] Lung cancer PHQ2 Screen Positive; Status:Complete - Retrospective Authorization; Done: [id number] SocHx: Former smoker Tobacco Use Screening; Status:Complete; Done: [id number] Patient Instructions By signing my name below, I, Karin Malloy LPN,Darin, attest that this documentation has been prepared [...] pain and dyspnea. Patient is a 56-year-old -[place] gentleman returns and seen in cardiology consultation [...] negative for complaint. Vitals Vital Signs Recorded: [id number] 10:09AMRecorded: [id number] 10:05AM [id number], LUE, Gssluyd565, RUE, Sitting Rmjncorjs44, LUE, Egsbrjs06, RUE, Sitting Heart Rate96, Apical Height6 ft Twihyu299 lb BMI Fcgbjiypns12.16 kg/m2 BSA (more content not included)... Normal [facility] Tobacco Screening.on 022 Adult depression screening assessment Yes [facility] [address] DO Work Phone: Fall risk assessment c) Not medically indicated [facility] 250 DO Work Phone: Tobacco use status CP b) No [facility] [address] DO Work Phone: Tobacco Screening. 3-Nearly every day [facility] 250 DO Work Phone: Tobacco Screening. 2-More than half the days [facility] 250 DO Work Phone: [phone] Tobacco Screening. 0-Not at all [facility] 250 DO Work Phone: Tobacco Screening. Extremely Difficult [facility] [address] DO Work Phone: Albumin [Mass/volume] in Ser um or PlasmaOrdered By: Estela Varma on 09-02-2021 Albumin [Mass/Vol] 3.8 g/dL 3.2-5.5 [facility] Basophils Auto (Bld) [#/Vol] Ordered By: Estela Varma on 09-02-2021 Basophils (Bld) [#/Vol] 0.0 10*3/uL 0.0-0.2 [facility] Basophils/100 WBC Auto (Bld) Ordered By: Estela Varma on 09-02-2021 Basophils/100 WBC (Bld) 0.7 % . [facility] Eosinophils Auto (Bld) [#/Vo l]Ordered By: Estela Varma on 09-02-2021 Eosinophils (Bld) [#/Vol] 0.2 10*3/uL 0.0-0.45 [facility] Eosinophils/100 WBC Auto (Bl d)Ordered By: Estela Varma on 09-02-2021 Eosinophils/100 WBC (Bld) 4.2 % . [facility] Erythrocyte distribution wid th Auto (RBC) [Ratio]Ordered By: Estela Varma on 09-02-2021 Erythrocyte distribution width (RBC) [Ratio] 15.7 % 12.0-14.8 [facility] Globulin Calc (S) [Mass/Vol] Ordered By: Estela Varma on 09-02-2021 Globulin (S) [Mass/Vol] 3.4 g/dL [facility] Glucose Glucometer (dC) [M ass/Vol]Ordered By: George Ash on 09-02-2021 Glucose [Mass/Vol] 82 mg/dL [facility] Comment on above: Random Glucose Refer ence Range is dependent on time and content of last meal. Glucose of more than 200 mg/dL in a nonstressed, ambulatory subject supports the diagnosis of Diabetes Mellitus. Hematocrit Auto (Bld) [Volum e fraction]Ordered By: Estela Varma on 09-02-2021 Hematocrit (Bld) [Volume fraction] 42.4 % 38.8-50.0 [facility] Hemoglobin [Mass/volume] in BloodOrdered By: Estela Varma on 09-02-2021 Hemoglobin (Bld) [Mass/Vol] 14.6 g/dL 13.0-17.0 [facility] - Hematology and Cell countsOrdered By: Estela Varma on 09-02-2021 Nucleated RBC/100 WBC (Bld) [Ratio] 0.1 % 0-0.5 [facility] Leukocytes [#/volume] in Blo od by Automated countOrdered By: Estela Varma on 09-02-2021 WBC (Bld) [#/Vol] 5.0 10*3/uL 4.5-11.0 [facility] Lymphocytes Auto (Bld) [#/Vo l]Ordered By: Estela Varma on 09-02-2021 Lymphocytes (Bld) [#/Vol] 0.9 10*3/uL 1.00-4.8 [facility] Lymphocytes/100 WBC Auto (Bl d)Ordered By: Estela Varma on 09-02-2021 Lymphocytes/100 WBC (Bld) 18.2 % . [facility] MCH Auto (RBC) [Entitic mass ]Ordered By: Estela Varma on 09-02-2021 MCH (RBC) [Entitic mass] 32.6 pg 27.5-35.2 [facility] MCHC Auto (RBC) [Mass/Vol]Or dered By: Estela Varma on 09-02-2021 MCHC (RBC) [Mass/Vol] 34.4 g/dL 32.5-35.6 [facility] MCV Auto (RBC) [Entitic vol] Ordered By: Estela Varma on 09-02-2021 MCV (RBC) [Entitic vol] 94.8 fL 83.5-101 [facility] Monocytes Auto (Bld) [#/Vol] Ordered By: Estela Vrama on 09-02-2021 Monocytes (Bld) [#/Vol] 0.4 10*3/uL 0.0-0.8 [facility] Monocytes/100 WBC Auto (Bld) Ordered By: Estela Varma on 09-02-2021 Monocytes/100 WBC (Bld) 7.9 % . [facility] Neutrophils Auto (Bld) [#/Vo l]Ordered By: Estela Varma on 09-02-2021 Neutrophils (Bld) [#/Vol] 3.5 10*3/uL 1.8-7.7 [facility] Neutrophils/100 WBC Auto (Bl d)Ordered By: Estela Varma on 09-02-2021 Neutrophils/100 WBC (Bld) 69.0 % . [facility] Platelet mean volume Auto (B ld) [Entitic vol]Ordered By: Estela Varma on 09-02-2021 Platelet mean volume (Bld) [Entitic vol] 7.0 fL 6.6-10.1 [facility] Platelets Auto (Bld) [#/Vol] Ordered By: Estela Varma on 09-02-2021 Platelets (Bld) [#/Vol] 186 10*3/uL 150-450 [facility] Protein [Mass/volume] in Ser um or PlasmaOrdered By: Estela Varma on 09-02-2021 Protein [Mass/Vol] 7.2 g/dL 6.1-7.9 [facility] RBC Auto (Bld) [#/Vol]Ordere d By: Estela Varma on 09-02-2021 RBC (Bld) [#/Vol] 4.48 10*6/uL 3.90-5.60 [facility] Serum or plasma alanine glynn otransferase measurement without P-5'-P (enzymatic activiOrdered By: Estela Varma on 09-02-2021 ALT No additional P-5'-P [Catalytic activity/Vol] 13 U/L 10-60 [facility] Serum or plasma albumin/glob ulin mass ratioOrdered By: Estela Varma on 09-02-2021 Albumin/Globulin [Mass ratio] 1.1 {ratio} [facility] Serum or plasma alkaline abhijit sphatase measurement (enzymatic activity/volume)Ordered By: Estela Varma on 09-02-2021 ALP [Catalytic activity/Vol] 130 U/L 32-92 [facility] Serum or plasma aspartate am inotransferase measurement (enzymatic activity/volume)Ordered By: Estela Varma on 09-02-2021 AST [Catalytic activity/Vol] 18 U/L 10-42 [facility] Serum or plasma calcium ledy urement (mass/volume)Ordered By: Estela Varma on 09-02-2021 Calcium [Mass/Vol] 9.0 mg/dL 8.2-10.2 [facility] Serum or plasma carcinoembry onic antigen measurement (mass/volume)Ordered By: Estela Varma on 09-02-2021 Carcinoembryonic Ag [Mass/Vol] 11.4 ng/mL 0.0-3.0 [facility] Serum or plasma chloride carlyn surement (moles/volume)Ordered By: Estela Varma on 09-02-2021 Chloride [Moles/Vol] 100 mmol/L 95-114 [facility] Serum or plasma glucose ledy urement (mass/volume)Ordered By: Estela Varma on 09-02-2021 Glucose [Mass/Vol] 78 mg/dL 70-100 [facility] Comment on above: ADA recommended refe rence rangeRandom Glucose Reference Range is dependent on time and content of last meal. Glucose of more than 200 mg/dL in a nonstressed, ambulatory subject supports the diagnosis of Diabetes Mellitus. Serum or plasma potassium me asurement (moles/volume)Ordered By: Estela Varma on 09-02-2021 Potassium [Moles/Vol] 4.3 mmol/L 3.5-5.1 [facility] Serum or plasma sodium measu rement (moles/volume)Ordered By: Estela Varma on 09-02-2021 Sodium [Moles/Vol] 133 mmol/L 136-146 [facility] Serum or plasma total biliru bin measurement (mass/volume)Ordered By: Estela Varma on 09-02-2021 Bilirubin [Mass/Vol] 0.6 mg/dL 0.3-1.2 [facility] Serum or plasma total carbon dioxide measurement (moles/volume)Ordered By: Estela Varma on 09-02-2021 CO2 [Moles/Vol] 23.9 mmol/L 22.0-30.0 [facility] TSH DL <= 0.005 mIU/L QnOrde red By: George Ash on 01-31-2021 TSH Qn 1.65 m[IU]/L 0.45-5.33 [facility] Lipid Panel Fastingon 2020 Cholesterol [Mass/Vol] 145 mg/dL Normal 0-199 [facility] Comment on above: Result Comment: ATP III Cholesterol classification is Desirable. Performed By: #### L IPDF #### [facility] [address] [place] [address] HDL Cholesterol Fasting 49 mg/dL Normal 40-59 [facility] Comment on above: Result Comment: ATP III [...] CHD Performed By: #### L IPDF #### [facility] [address] [place] [address] LDL Cholesterol (Calculated) Fasting 76 mg/dL Normal 0-129 [facility] Comment on above: Result Comment: ATP III LDL Classification is Optimal. Performed By: #### L IPDF #### [facility] [address] [place] [address] Triglycerides Fasting 98 mg/dL Normal 0-150 [facility] Comment on above: Result Comment: ATP III Triglycerides Classification is Normal. Performed By: #### L IPDF #### [facility] [address] [place] [address] Vitamin B12 and Folateon Cobalamin (Vitamin B12) [Mass/Vol] 417 pg/mL Normal 232-1245 [facility] Comment on above: Performed By: #### B 12FO #### [facility] [address] [place] [address] Folate 13.4 ng/mL Normal 7.3-26.1 [facility] Comment on above: Result Comment: As o f 15, the methodology has changed. Results from this methodology should not be compared with results from previous methodology. Performed By: #### B 12FO #### [facility] [address] [place] [address] Vitamin Don 08-20-2020 Vitamin D 33.1 ng/mL Normal 30.0-100.0 [facility] Comment on above: Result Comment: (30- 100 ng/mL) Optimum Level This assay accurately quantifies the sum of vitamin D3, 25-Hydroxy and vitamin D2, 25-Hyroxy. Performed By: #### V ITD #### [facility] [address] [place] [address] Thyroxine (T4) free [Mass/vo lume] in Serum or Plasmaon 08-16-2020 Free T4 [Mass/Vol] 0.79 ng/dL 0.61-1.12 [facility] Lipid Profileon 08-06-2020 Cholesterol [Mass/Vol] 132 mg/dL Normal <200 [facility] Comment on above: Result Comment: Cholesterol Guidelines: <200 Desirable 200-240 Borderline >240 Undesirable Performed By: #### L IPR #### [facility] Notice Kiosk [address] [place] [address] Associate Professor: Joe Todd MD Cholesterol in HDL [Mass/Vol] 41 mg/dL Normal >40 [facility] Comment on above: Result Comment: HDL Guidelines: <40 Undesirable 40-59 Borderline >59 Desirable Performed By: #### L IPR #### [address] [place] [address] Associate Professor: Joe Todd MD Cholesterol in LDL [Mass/Vol] 72 mg/dL Normal 0-130 [facility] Comment on above: Result Comment: LDL Guidelines: <100 Desirable 100-129 Near to/above Desirable 130-159 Borderline >159 Undesirable Direct (measured) LDL and calculated LDL are not interchangeable tests. Performed By: #### L IPR #### [employer] [address] [place] [address] Associate Professor: Joe Todd MD Cholesterol.total/Cho lesterol in HDL [Mass ratio] 3.2 {ratio} Normal <5 [facility] Comment on above: Performed By: #### L IPR #### [employer] [facility] [address] [place] [address] Associate Professor: Joe Todd MD Triglyceride [Mass/Vol] 93 mg/dL Normal <150 [facility] Comment on above: Result Comment: Triglyceride Guidelines: <150 Desirable 150-199 Borderline 200-499 High >499 Very high Based on AHA Guidelines for fasting triglyceride, February 2012. Performed By: #### L IPR #### [facility] [address] [place], [place] [id number] Associate Professor: Joe Todd MD Cholesterol in VLDL [Mass/Vol] NOT REPORTED Normal 06-12 [facility] Comment on above: Performed By: #### L IPR #### [facility] [address] [place], [place] [id number] Associate Professor: Joe Todd MD Direct bilirubin measurement on 07-05-2020 Bilirubin.direct [Mass/Vol] 0.1 mg/dL 0.0-0.4 [facility] Serum or plasma non-glucuron idated bilirubin measurement (mass/volume)on 07-05-2020 Bilirubin.indirect [Mass/Vol] 0.8 mg/dL [facility] - Hematology and Cell countson 05-24-2020 WBC (Bld) [#/Vol] 4.9 10*3/uL 4.5-11.0 [facility] Blood anisocytosis detection on 03-08-2020 Anisocytosis Ql (Bld) Slight [facility] No Panel Informationon 03-08 Platelet Estimate Normal Normal [facility] Platelet Morphology Comment Normal Normal [facility] RBC morphologyon 03-08-2020 RBC morphology finding Nom (Bld) N/A [facility] CARDIAC STRESS/REST (DILAN CARDIAL PERFUSION/MIBI)on 03-03-2020 [facility] CARDIAC STRESS/REST (MYOCARDIAL PERFUSION/MIBI) Patient Name: KIRILL ECHOLS STUDY: MYOCARDIAL PERFUSION STRESS TEST WITH LEXISCAN Performing facility: [facility], \[address], [address], \[place] [address] [facility] Provider: Ema Oliveira DO, FACC PCP: Dr. Danni Andrea Supervising provider: Tejal King MD, FACC INDICATION: Chest Pain; HISTORY: Gender: M; Age: 54 y/o ; Height: 182.88 cm; Weight: 71.1509949 kg. HTN; Chest Pain; COPD; Quit smoking in 2020 years ago. COMPARISON: No comparison. ACCESSION NUMBER(S): [id number]; [id number]; [id number] ORDERING CLINICIAN: LUKAS OLIVEIRA TECHNIQUE: ONE DAY [...] comparison. Electronically signed by: TEJAL KING MD [facility] CARDIAC STRESS/REST INJE CTIONon 03-03-2020 [facility] CARDIAC STRESS/REST INJECTION Patient Name: KIRILL ECHOLS STUDY: MYOCARDIAL PERFUSION STRESS TEST WITH LEXISCAN Performing facility: [facility], [address], [address], \[place] [address] [facility] Provider: Ema Oliveira DO, FACC PCP: Dr. Danni Andrea Supervising provider: Tejal King MD, [facility] INDICATION: Chest Pain; HISTORY: Gender: M; Age: 54 y/o ; Height: 182.88 cm; Weight: 71.1109074 kg. HTN; Chest Pain; COPD; Quit smoking in 2020 years ago. COMPARISON: No comparison. ACCESSION NUMBER(S): [id number]; [id number]; [id number] ORDERING CLINICIAN: LUKAS OLIVEIRA TECHNIQUE: ONE DAY [...] comparison. Electronically signed by: TEJAL KING MD [facility] PART 2 STRESS OR REST (N O CHARGE)on 03-03-2020 [facility] PART 2 STRESS OR REST (NO CHARGE) Patient Name: KIRILL ECHOLS STUDY: MYOCARDIAL PERFUSION STRESS TEST WITH LEXISCAN Performing facility: [facility], \[address], [address], \[place] [address] [facility] Provider: Ema Oliveira DO, [facility] PCP: Dr. Danni Andrea Supervising provider: Tejal King MD, [facility] INDICATION: Chest Pain; HISTORY: Gender: M; Age: 54 y/o ; Height: 182.88 cm; Weight: 71.5358061 kg. HTN; Chest Pain; COPD; Quit smoking in 2020 years ago. COMPARISON: No comparison. ACCESSION NUMBER(S): [id number]; [id number]; [id number] ORDERING CLINICIAN: LUKAS OLIVEIRA TECHNIQUE: ONE DAY [...] Electronically signed by: TEJAL KING MD Normal [facility] No Panel Informationon 03-02 Schistocytes Rare [facility] Target cellson 03-02-2020 Target cells LM Ql (Bld) Slight [facility] Basophil percentageon 2019 Eosinophils/100 WBC (Bld) 1 % 1-3 [facility] Blood polychromasia detectio n by light microscopyon 02-24-2020 Polychromasia LM Ql (Bld) [facility] Laboratory - Hematology and Cell countson 02-24-2020 Band form neutrophils/100 WBC (Bld) 13 % 0-5 [facility] Lymphocytes/100 WBC Auto (Bl d)on 02-24-2020 Lymphocytes/100 WBC (Bld) 9 % 18-42 [facility] Monocyte %on 02-24-2020 Monocytes/100 WBC (Bld) 1 % 1-3 [facility] Monocytes/100 WBC Manual cnt (Bld)on 02-24-2020 Monocytes/100 WBC (Bld) 16 % 2-11 [facility] No Panel Informationon 02-23 Dohle Bodies [facility] Poikilocytosis Slight [facility] Ovalocyte detectionon 2019 Ovalocytes LM Ql (Bld) [facility] Segmented neutrophils/100 WB C Manual cnt (Bld)on 02-24-2020 Segmented neutrophils/100 WBC (Bld) 61 % 50-70 [facility] Hypochromia detectionon 01-13 Hypochromia Ql (Bld) [facility] Macrocytes detectionon 01-19 Macrocytes Ql (Bld) [facility] No Panel Informationon 01-19 Smudge Cells Few [facility] Red blood cell stomatocyte d etectionon 12-09-2019 Stomatocytes LM Ql (Bld) [facility] Respiratory specimen 2019 no mathieu coronavirus RNA detection by probe and target amplifion 11-21-2019 SARS-CoV-2 (COVID-19) RNA DEANA+probe Ql (Resp) Not detected Not Detected [facility] Comment on above: This test was develo ped and its performance characteristicsdetermined by [employer]. This test has not beenFDA cleared or [...] (not detected) result in this assay.Performed at: [facility] [employer] [facility], [place] [id number] Director: Antonio Chaney MD, Phone: [phone] Basophils/100 WBC Auto (Bld) on 11-18-2019 Basophils/100 WBC (Bld) 1 % 0-2 [facility] Amylaseon 04-28-2018 Amylase enzyme act/vol 130 U/L High 30-110 [facility] Comment on above: Performed By: #### C BCDIF, PT, GBCHEM, GBTSH, LIPA, MG, GBHCV, HAVIGM, HBCAB, HBSAG, RPR ####[facility] [id number] [place], [place] [phone] GGTon 04-28-2018 Gamma glutamyl transferase [Enzymatic activity/volume] in Serum or Plasma 426 U/L High 15-73 [facility] Comment on above: Performed By: #### C BCDIF, PT, GBCHEM, GBTSH, LIPA, MG, GBHCV, HAVIGM, HBCAB, HBSAG, RPR ####[facility] [id number] [place], [place] [phone] Hepatic Function Pnlon 04-28 Albumin mass conc 4.2 g/dL Normal 3.5-5.0 [facility] Comment on above: Performed By: #### C BCDIF, PT, GBCHEM, GBTSH, LIPA, MG, GBHCV, HAVIGM, HBCAB, HBSAG, RPR ####[facility] Clinical [id number] [place], [place] [phone] Alkaline Phos 96 U/L Normal 38-125 [facility] Comment on above: Performed By: #### C BCDIF, PT, GBCHEM, GBTSH, LIPA, MG, GBHCV, HAVIGM, HBCAB, HBSAG, RPR ####[facility] [id number] [facility], [place] [phone] ALT enzyme act/vol 60 U/L Normal 21-72 [facility] Comment on above: Performed By: #### C BCDIF, PT, GBCHEM, GBTSH, LIPA, MG, GBHCV, HAVIGM, HBCAB, HBSAG, RPR ####[facility] Clinical [id number] [place], [place] [phone] AST enzyme act/vol 65 U/L High 17-59 [facility] Comment on above: Performed By: #### C BCDIF, PT, GBCHEM, GBTSH, LIPA, MG, GBHCV, HAVIGM, HBCAB, HBSAG, RPR ####[facility] [id number] [place], [place] [phone] Bilirubin Ql (U) 0.3 mg/dL Normal 0.2-1.3 [facility] Comment on above: Performed By: #### C BCDIF, PT, GBCHEM, GBTSH, LIPA, MG, GBHCV, HAVIGM, HBCAB, HBSAG, RPR ####[facility] Clinical [id number] [place], [place] [phone] Bilirubin.direct mass conc 0.2 mg/dL Normal 0.0-0.4 [facility] Comment on above: Performed By: #### C BCDIF, PT, GBCHEM, GBTSH, LIPA, MG, GBHCV, HAVIGM, HBCAB, HBSAG, RPR ####[facility] Clinical [id number] [place], [place] [phone] Protein mass conc 7.3 g/dL Normal 6.2-8.2 [facility] Comment on above: Performed By: #### C BCDIF, PT, GBCHEM, GBTSH, LIPA, MG, GBHCV, HAVIGM, HBCAB, HBSAG, RPR ####[facility] [id number] [facility] [place] [phone] Lipaseon 04-28-2018 Lipase enzyme act/vol 941 U/L High 23-300 [facility] Comment on above: Performed By: #### C BCDIF, PT, GBCHEM, GBTSH, LIPA, MG, GBHCV, HAVIGM, HBCAB, HBSAG, RPR ####[facility] [id number] [facility], [place] [phone] Phenobarbitalon 04-26-2018 Phenobarbital mass conc ug/mL Low 15.0-40.0 [facility] Comment on above: Performed By: #### C BCDIF, PT, GBCHEM, GBTSH, LIPA, MG, GBHCV, HAVIGM, HBCAB, HBSAG, RPR ####[facility] [id number] [place], [place] [phone] RPRon 04-25-2018 Reagin Ab RPR Ql (S) Nonreactive Normal Nonreactive [facility] Comment on above: Performed By: #### C BCDIF, PT, GBCHEM, GBTSH, LIPA, MG, GBHCV, HAVIGM, HBCAB, HBSAG, RPR ####[facility] [id number] [address], [place] [phone] Urinalysison 04-25-2018 Bilirubin Negative Normal Negative [facility] Comment on above: Performed By: #### C BCDIF, PT, GBCHEM, GBTSH, LIPA, MG, GBHCV, HAVIGM, HBCAB, HBSAG, RPR ####[facility] [id number] [facility], [place] [phone] Cast SEE NOTES Normal 0 [facility] Comment on above: Result Comment: >20H yaline Cast Performed By: #### C BCDIF, PT, GBCHEM, GBTSH, LIPA, MG, GBHCV, HAVIGM, HBCAB, HBSAG, RPR ####[facility] Clinical [id number] [place] [address], [place] [phone] Clarity Nom (U) Cloudy Critically abnormal Clear [facility] Comment on above: Performed By: #### C BCDIF, PT, GBCHEM, GBTSH, LIPA, MG, GBHCV, HAVIGM, HBCAB, HBSAG, RPR ####[facility] Clinical [id number] [address] Hospitalrdon, [place] [phone] Color Nom (U) Taylor Critically abnormal Yellow [facility] Comment on above: Performed By: #### C BCDIF, PT, GBCHEM, GBTSH, LIPA, MG, GBHCV, HAVIGM, HBCAB, HBSAG, RPR ####[facility] [id number] [address] [facility] Hospitalrdon, [place] [phone] Crystals SEE NOTES Normal 0 [facility] Comment on above: Result Comment: FewA morphous Performed By: #### C BCDIF, PT, GBCHEM, GBTSH, LIPA, MG, GBHCV, HAVIGM, HBCAB, HBSAG, RPR ####[facility] Clinical Ndu61051 [address] Hospitalrdon, [place] [phone] Epithelial Cells Few Normal [facility] Comment on above: Result Comment: Squa mous Epithelial Cells Performed By: #### C BCDIF, PT, GBCHEM, GBTSH, LIPA, MG, GBHCV, HAVIGM, HBCAB, HBSAG, RPR ####[facility] Clinical Owj86092 [address], [place] [phone] Glucose Negative Normal Negative [facility] Comment on above: Performed By: #### C BCDIF, PT, GBCHEM, GBTSH, LIPA, MG, GBHCV, HAVIGM, HBCAB, HBSAG, RPR ####[facility] Diw68948 [place] [address], [place] [phone] Hemoglobin/Blood Negative Normal Negative [facility] Comment on above: Performed By: #### C BCDIF, PT, GBCHEM, GBTSH, LIPA, MG, GBHCV, HAVIGM, HBCAB, HBSAG, RPR ####[facility] Clinical [id number] [facility], [phone] INR Coag RelTime (Bld) 0-3 Normal 0-3 [facility] Comment on above: Performed By: #### C BCDIF, PT, GBCHEM, GBTSH, LIPA, MG, GBHCV, HAVIGM, HBCAB, HBSAG, RPR ####[facility] Clinical [id number] [facility], [phone] Ketone Trace Critically abnormal Negative [facility] Comment on above: Performed By: #### C BCDIF, PT, GBCHEM, GBTSH, LIPA, MG, GBHCV, HAVIGM, HBCAB, HBSAG, RPR ####[facility] Clinical [id number] [facility], [place] [phone] Leukest Negative Normal Negative [facility] Comment on above: Performed By: #### C BCDIF, PT, GBCHEM, GBTSH, LIPA, MG, GBHCV, HAVIGM, HBCAB, HBSAG, RPR ####[facility] Clinical [id number] [place], [place] [phone] Nitrites Negative Normal Negative [facility] Comment on above: Performed By: #### C BCDIF, PT, GBCHEM, GBTSH, LIPA, MG, GBHCV, HAVIGM, HBCAB, HBSAG, RPR ####[facility] Clinical [id number] [facility], [place] [phone] pH Test strip (U) 5.0 [pH] Normal 5-7 [facility] Comment on above: Performed By: #### C BCDIF, PT, GBCHEM, GBTSH, LIPA, MG, GBHCV, HAVIGM, HBCAB, HBSAG, RPR ####[facility] Clinical [id number] [facility], [phone] Protein mass conc 100 mg/dl Critically abnormal Negative [facility] Comment on above: Performed By: #### C BCDIF, PT, GBCHEM, GBTSH, LIPA, MG, GBHCV, HAVIGM, HBCAB, HBSAG, RPR ####[facility] Clinical [id number] [facility], [phone] Urine Alpesh Comment Many Normal [facility] Comment on above: Result Comment: MUCO US Performed By: #### C BCDIF, PT, GBCHEM, GBTSH, LIPA, MG, GBHCV, HAVIGM, HBCAB, HBSAG, RPR ####[facility] Clinical [id number] [facility], [phone] Urine Spec [place] 1.025 Normal 1.005-1.030 [facility] Comment on above: Performed By: #### C BCDIF, PT, GBCHEM, GBTSH, LIPA, MG, GBHCV, HAVIGM, HBCAB, HBSAG, RPR ####[facility] Clinical [id number] [facility], [place] [phone] Urobilinogen 2.0 mg/dl High 0.0-1.0 [facility] Comment on above: Performed By: #### C BCDIF, PT, GBCHEM, GBTSH, LIPA, MG, GBHCV, HAVIGM, HBCAB, HBSAG, RPR ####[facility] Clinical Fdr20405 [place] [phone] WBC 0-5 Normal 0-5 [facility] Comment on above: Performed By: #### C BCDIF, PT, GBCHEM, GBTSH, LIPA, MG, GBHCV, HAVIGM, HBCAB, HBSAG, RPR ####[facility] Clinical [id number] [facility], [place] [phone] CBCDIFon 04-24-2018 Abs Baso 0.02 k/uL Normal 0-0.2 [facility] Comment on above: Performed By: #### C BCDIF, PT, GBCHEM, GBTSH, LIPA, MG, GBHCV, HAVIGM, HBCAB, HBSAG, RPR ####[facility] Clinical [id number] [facility], [place] [phone] Abs Kerr 1.23 k/uL High 0-0.8 [facility] Comment on above: Performed By: #### C BCDIF, PT, GBCHEM, GBTSH, LIPA, MG, GBHCV, HAVIGM, HBCAB, HBSAG, RPR ####[facility] Clinical [id number] [facility], [place] [phone] Abs Neut 7.41 k/uL Normal 1.8-7.7 [facility] Comment on above: Performed By: #### C BCDIF, PT, GBCHEM, GBTSH, LIPA, MG, GBHCV, HAVIGM, HBCAB, HBSAG, RPR ####[facility] Clinical [id number] [facility], [place] [phone] Basophils/100 WBC Auto (Bld) 0.2 % Normal 0-1 [facility] Comment on above: Performed By: #### C BCDIF, PT, GBCHEM, GBTSH, LIPA, MG, GBHCV, HAVIGM, HBCAB, HBSAG, RPR ####[facility] Goy38045 [place], [place] [phone] Eosinophils Auto #/vol (Bld) 0.38 10*3/uL Normal 0-0.4 [facility] Comment on above: Performed By: #### C BCDIF, PT, GBCHEM, GBTSH, LIPA, MG, GBHCV, HAVIGM, HBCAB, HBSAG, RPR ####[facility] Clinical [id number] [place], [place] [phone] Eosinophils/100 WBC Auto (Bld) 3.3 % Normal 0-4 [facility] Comment on above: Performed By: #### C BCDIF, PT, GBCHEM, GBTSH, LIPA, MG, GBHCV, HAVIGM, HBCAB, HBSAG, RPR ####[facility] Ogz14945 [place], [place] [phone] Erythrocyte distribution width Auto Ratio (RBC) 14.6 % High 11.5-14.5 [facility] Comment on above: Performed By: #### C BCDIF, PT, GBCHEM, GBTSH, LIPA, MG, GBHCV, HAVIGM, HBCAB, HBSAG, RPR ####[facility] Clinical [id number] [place] [phone] Hematocrit Auto Volume Fraction (Bld) 46.2 % Normal 41.0-53.0 [facility] Comment on above: Performed By: #### C BCDIF, PT, GBCHEM, GBTSH, LIPA, MG, GBHCV, HAVIGM, HBCAB, HBSAG, RPR ####[facility] Fwq61290 [place], [place] [phone] Hemoglobin mass conc (Bld) 16.2 g/dL Normal 13.5-17.5 [facility] Comment on above: Performed By: #### C BCDIF, PT, GBCHEM, GBTSH, LIPA, MG, GBHCV, HAVIGM, HBCAB, HBSAG, RPR ####[facility] [id number] [place], [place] [phone] Immature Gran 0.30 % Normal 0-1.9 [facility] Comment on above: Performed By: #### C BCDIF, PT, GBCHEM, GBTSH, LIPA, MG, GBHCV, HAVIGM, HBCAB, HBSAG, RPR ####[facility] [id number] [place], [place] [phone] Lymphocytes Auto #/vol (Bld) 2.56 10*3/uL Normal 1.0-4.0 [facility] Comment on above: Performed By: #### C BCDIF, PT, GBCHEM, GBTSH, LIPA, MG, GBHCV, HAVIGM, HBCAB, HBSAG, RPR ####[facility] Clinical Cic98297 [address]Ed[place], [place] [phone] Lymphocytes/100 WBC Auto (Bld) 22.0 % Normal 22-44 [facility] Comment on above: Performed By: #### C BCDIF, PT, GBCHEM, GBTSH, LIPA, MG, GBHCV, HAVIGM, HBCAB, HBSAG, RPR ####[facility] Clinical [id number] [facility]on, [place] [phone] MCH Auto Entitic mass (RBC) 31.6 pG Normal 26-34 [facility] Comment on above: Performed By: #### C BCDIF, PT, GBCHEM, GBTSH, LIPA, MG, GBHCV, HAVIGM, HBCAB, HBSAG, RPR ####[facility] Clinical [id number] [facility], [place] [phone] MCHC Auto mass conc (RBC) 35.1 g/dL Normal 31-37 [facility] Comment on above: Performed By: #### C BCDIF, PT, GBCHEM, GBTSH, LIPA, MG, GBHCV, HAVIGM, HBCAB, HBSAG, RPR ####[facility] Clinical [id number] [facility], [place] [phone] MCV Auto Entitic volume (RBC) 90.1 fL Normal 80-100 [facility] Comment on above: Performed By: #### C BCDIF, PT, GBCHEM, GBTSH, LIPA, MG, GBHCV, HAVIGM, HBCAB, HBSAG, RPR ####[facility] Clinical Nqb54817 [facility] Hospital[facility], [place] [phone] Monocytes/100 WBC Auto (Bld) 10.6 % Normal 4-12 [facility] Comment on above: Performed By: #### C BCDIF, PT, GBCHEM, GBTSH, LIPA, MG, GBHCV, HAVIGM, HBCAB, HBSAG, RPR ####[facility] Clinical Nmu20940 [facility] Hospital[facility], [place] [phone] Neutrophils/100 WBC Auto (Bld) 63.6 % Normal 40-70 [facility] Comment on above: Performed By: #### C BCDIF, PT, GBCHEM, GBTSH, LIPA, MG, GBHCV, HAVIGM, HBCAB, HBSAG, RPR ####[facility] Clinical [id number] [facility] [place] [phone] NRBCs 0 /100 WBC Normal 0-0.9 [facility] Comment on above: Performed By: #### C BCDIF, PT, GBCHEM, GBTSH, LIPA, MG, GBHCV, HAVIGM, HBCAB, HBSAG, RPR ####[facility] Clinical [id number] [facility], [place] [phone] Platelets Auto #/vol (Bld) 188 10*3/uL Normal 150-450 [facility] Comment on above: Performed By: #### C BCDIF, PT, GBCHEM, GBTSH, LIPA, MG, GBHCV, HAVIGM, HBCAB, HBSAG, RPR ####[facility] Clinical [id number] [facility], [place] [phone] RBC Auto #/vol (Bld) 5.13 10*6/uL Normal 4.50-5.90 [facility] Comment on above: Performed By: #### C BCDIF, PT, GBCHEM, GBTSH, LIPA, MG, GBHCV, HAVIGM, HBCAB, HBSAG, RPR ####[facility] [id number] [facility], [place] [phone] WBC Auto #/vol (Bld) 11.63 10*3/uL High 4.5-11.0 [facility] Comment on above: Performed By: #### C BCDIF, PT, GBCHEM, GBTSH, LIPA, MG, GBHCV, HAVIGM, HBCAB, HBSAG, RPR ####[facility] Clinical [id number] [facility] Hospitalrdon, [place] [phone] [facility] Tim 2017 Albumin mass conc 5.0 g/dL Normal 3.5-5.0 [facility] Comment on above: Performed By: #### C BCDIF, PT, GBCHEM, GBTSH, LIPA, MG, GBHCV, HAVIGM, HBCAB, HBSAG, RPR ####[facility] Clinical [id number] [facility], [place] [phone] Alkaline Phos 137 U/L High 38-125 [facility] Comment on above: Performed By: #### C BCDIF, PT, GBCHEM, GBTSH, LIPA, MG, GBHCV, HAVIGM, HBCAB, HBSAG, RPR ####[facility] Clinical Ogz63929 [place], [place] [phone] ALT enzyme act/vol 54 U/L Normal 21-72 [facility] Comment on above: Performed By: #### C BCDIF, PT, GBCHEM, GBTSH, LIPA, MG, GBHCV, HAVIGM, HBCAB, HBSAG, RPR ####[facility] Clinical [id number] [facility], [place] [phone] Amylase enzyme act/vol 156 U/L High 30-110 [facility] Comment on above: Performed By: #### C BCDIF, PT, GBCHEM, GBTSH, LIPA, MG, GBHCV, HAVIGM, HBCAB, HBSAG, RPR ####[facility] Clinical [id number] [place], [place] [phone] Anion gap 3 molar conc 18 mmol/L High 0-15 [facility] Comment on above: Performed By: #### C BCDIF, PT, GBCHEM, GBTSH, LIPA, MG, GBHCV, HAVIGM, HBCAB, HBSAG, RPR ####[facility] Clinical [id number] [facility], [place] [phone] AST enzyme act/vol 102 U/L High 17-59 [facility] Comment on above: Performed By: #### C BCDIF, PT, GBCHEM, GBTSH, LIPA, MG, GBHCV, HAVIGM, HBCAB, HBSAG, RPR ####[facility] [id number] [facility], [place] [phone] Bilirubin Ql (U) 1.5 mg/dL High 0.2-1.3 [facility] Comment on above: Performed By: #### C BCDIF, PT, GBCHEM, GBTSH, LIPA, MG, GBHCV, HAVIGM, HBCAB, HBSAG, RPR ####[facility] Clinical [id number] [facility], [place] [phone] Calcium mass conc 10.0 mg/dL Normal 8.4-10.2 [facility] Comment on above: Performed By: #### C BCDIF, PT, GBCHEM, GBTSH, LIPA, MG, GBHCV, HAVIGM, HBCAB, HBSAG, RPR ####[facility] Clinical [id number] [facility], [place] [phone] Chloride molar conc 91 mmol/L Low 98-107 [facility] Comment on above: Performed By: #### C BCDIF, PT, GBCHEM, GBTSH, LIPA, MG, GBHCV, HAVIGM, HBCAB, HBSAG, RPR ####[facility] Clinical [id number] [facility], [place] [phone] Cholesterol mass conc 155 mg/dL Normal 100-199 [facility] Comment on above: Performed By: #### C BCDIF, PT, GBCHEM, GBTSH, LIPA, MG, GBHCV, HAVIGM, HBCAB, HBSAG, RPR ####[facility] Clinical [id number] [facility], [place] [phone] CO2 molar conc 27 mmol/L Normal 22-30 [facility] Comment on above: Performed By: #### C BCDIF, PT, GBCHEM, GBTSH, LIPA, MG, GBHCV, HAVIGM, HBCAB, HBSAG, RPR ####[facility] Clinical [id number] [facility], [place] [phone] Creatinine mass conc 1.47 mg/dL High 0.66-1.25 [facility] Comment on above: Performed By: #### C BCDIF, PT, GBCHEM, GBTSH, LIPA, MG, GBHCV, HAVIGM, HBCAB, HBSAG, RPR ####[facility] Clinical [id number] [facility], [place] [phone] eGFR Amer >60 Normal >60 [facility] Comment on above: Result Comment: MDRD calculation used for eGFR results. Performed By: #### C BCDIF, PT, GBCHEM, GBTSH, LIPA, MG, GBHCV, HAVIGM, HBCAB, HBSAG, RPR ####[facility] Clinical [id number] [place], [place] [phone] eGFR non Am 53 mL/min/1.73 2 Low >60 [facility] Comment on above: Performed By: #### C BCDIF, PT, GBCHEM, GBTSH, LIPA, MG, GBHCV, HAVIGM, HBCAB, HBSAG, RPR ####[facility] Clinical [id number] [facility], [place] [phone] Gamma glutamyl transferase [Enzymatic activity/volume] in Serum or Plasma 602 U/L High 15-73 [facility] Comment on above: Performed By: #### C BCDIF, PT, GBCHEM, GBTSH, LIPA, MG, GBHCV, HAVIGM, HBCAB, HBSAG, RPR ####[facility] Clinical [id number] [place], [place] [phone] Glucose mass conc 98 mg/dL Normal 74-106 [facility] Comment on above: Performed By: #### C BCDIF, PT, GBCHEM, GBTSH, LIPA, MG, GBHCV, HAVIGM, HBCAB, HBSAG, RPR ####[facility] Clinical [id number] [facility], [place] [phone] LDH 550 U/L Normal 318-618 [facility] Comment on above: Performed By: #### C BCDIF, PT, GBCHEM, GBTSH, LIPA, MG, GBHCV, HAVIGM, HBCAB, HBSAG, RPR ####[facility] Clinical [id number] [facility], [place] [phone] Phosphate mass conc 3.9 mg/dL Normal 2.5-4.5 [facility] Comment on above: Performed By: #### C BCDIF, PT, GBCHEM, GBTSH, LIPA, MG, GBHCV, HAVIGM, HBCAB, HBSAG, RPR ####[facility] Clinical [id number] [facility], [place] [phone] Potassium molar conc 3.7 mmol/L Normal 3.5-5.1 [facility] Comment on above: Performed By: #### C BCDIF, PT, GBCHEM, GBTSH, LIPA, MG, GBHCV, HAVIGM, HBCAB, HBSAG, RPR ####[facility] Clinical [id number] [facility], [place] [phone] Protein mass conc 8.7 g/dL High 6.2-8.2 [facility] Comment on above: Performed By: #### C BCDIF, PT, GBCHEM, GBTSH, LIPA, MG, GBHCV, HAVIGM, HBCAB, HBSAG, RPR ####[facility] Clinical [id number] [place], [place] [phone] Sodium molar conc 132 mmol/L Low 137-145 [facility] Comment on above: Performed By: #### C BCDIF, PT, GBCHEM, GBTSH, LIPA, MG, GBHCV, HAVIGM, HBCAB, HBSAG, RPR ####[facility] [id number] [facility], [place] [phone] Triglyceride mass conc 160 mg/dL High 35-150 [facility] Comment on above: Performed By: #### C BCDIF, PT, GBCHEM, GBTSH, LIPA, MG, GBHCV, HAVIGM, HBCAB, HBSAG, RPR ####[facility] Clinical [id number] [facility] [place] [phone] Urate mass conc 7.2 mg/dL Normal 3.5-8.5 [facility] Comment on above: Performed By: #### C BCDIF, PT, GBCHEM, GBTSH, LIPA, MG, GBHCV, HAVIGM, HBCAB, HBSAG, RPR ####[facility] Clinical [id number] [place] [address], [place] [phone] Urea nitrogen mass conc 15 mg/dL Normal 9-20 [facility] Comment on above: Performed By: #### C BCDIF, PT, GBCHEM, GBTSH, LIPA, MG, GBHCV, HAVIGM, HBCAB, HBSAG, RPR ####[facility] Clinical [id number] [facility] Hospitalrdon, [place] [phone] [facility] Hep C Abon 018 [facility] Hep C Ab Nonreactive Normal Nonreactive [facility] Comment on above: Performed By: #### C BCDIF, PT, GBCHEM, GBTSH, LIPA, MG, GBHCV, HAVIGM, HBCAB, HBSAG, RPR ####[facility] Clinical [id number] [address] [facility] Hospital[facility], [place] [phone] [facility] TSHon 04-24-2018 Thyrotropin Qn 3.280 uU/mL Normal 0.465-4.680 [facility] Comment on above: Performed By: #### C BCDIF, PT, GBCHEM, GBTSH, LIPA, MG, GBHCV, HAVIGM, HBCAB, HBSAG, RPR ####[facility] Clinical [id number] [address], [place] [phone] Hep A IgM Antibodyon 018 Hep A IgM Antibody Nonreactive Normal Nonreactive [facility] Comment on above: Performed By: #### C BCDIF, PT, GBCHEM, GBTSH, LIPA, MG, GBHCV, HAVIGM, HBCAB, HBSAG, RPR ####[facility] [id number] [address], [place] [phone] Hep B Core Total Abon 2017 Hep B Core Total Ab Nonreactive Normal Nonreactive [facility] Comment on above: Performed By: #### C BCDIF, PT, GBCHEM, GBTSH, LIPA, MG, GBHCV, HAVIGM, HBCAB, HBSAG, RPR ####[facility] Clinical [id number] [facility], [place] [phone] Hep B Surf Antigenon 018 Hep B Surf Antigen Nonreactive Normal Nonreactive [facility] Comment on above: Performed By: #### C BCDIF, PT, GBCHEM, GBTSH, LIPA, MG, GBHCV, HAVIGM, HBCAB, HBSAG, RPR ####[facility] [id number] [facility], [place] [phone] Lipaseon 04-24-2018 Lipase enzyme act/vol 1540 U/L High 23-300 [facility] Comment on above: Performed By: #### C BCDIF, PT, GBCHEM, GBTSH, LIPA, MG, GBHCV, HAVIGM, HBCAB, HBSAG, RPR ####[facility] [id number] [place], [place] [phone] Magnesiumon 04-24-2018 Magnesium mass conc 2.0 mg/dL Normal 1.3-2.3 [facility] Comment on above: Performed By: #### C BCDIF, PT, GBCHEM, GBTSH, LIPA, MG, GBHCV, HAVIGM, HBCAB, HBSAG, RPR ####[facility] [id number] [place], [place] [phone] Protimeon 04-24-2018 INR Coag RelTime (Bld) 1.0 {INR} Normal 0.6-1.1 [facility] Comment on above: Result Comment: The PT/INR [...] to 3.5 for older generation mechanical heart valves.Rosmery et al. Chest 2004: 126:204S to 233S. Performed By: #### C BCDIF, PT, GBCHEM, GBTSH, LIPA, MG, GBHCV, HAVIGM, HBCAB, HBSAG, RPR ####[facility] [id number] [place], [place] [phone] PT Sec 12.3 sec Normal 11.8-14.1 [facility] Comment on above: Performed By: #### C BCDIF, PT, GBCHEM, GBTSH, LIPA, MG, GBHCV, HAVIGM, HBCAB, HBSAG, RPR ####[facility] [id number] [place], [place] [phone] Coding Summary.on 10-29-2017 Coding Summary. CODING DATE: 018 FINAL [facility] STATUS: Home (Routine DC) PAYOR: Commercial Insurance APC DESCRIPTION 5311 Level 1 Lower GI Procedures ADMIT DX: REASON FOR VISIT DX: K62.5 Hemorrhage of anus and rectum FINAL DX: PRINCIPAL: K62.5 Hemorrhage of anus and rectum SECONDARY: K64.8 Other hemorrhoids R19.7 Diarrhea, unspecified R63.4 Abnormal weight loss F10.10 Alcohol abuse, uncomplicated Z87.19 Personal history of other diseases of the digestive system Z79.82 detention (current) use of aspirin F17.210 Nicotine dependence, cigarettes, uncomplicated PYMT PROC APC STAT DESCRIPTION DOCTOR NAME DATE 1099749 9471 T Sigmoidoscopy, flexible; Nilesh Schulte MD 10/24/2017 diagnostic, including collection of specimen(s) by brushing or washing, when performed (separate procedure) 35352 Anesthesia for lower Nilesh Schulte MD 10/24/2017 intestinal endoscopic procedures, endoscope introduced distal to duodenum; not otherwise specified NOTE: The code number assigned matches the documented diagnosis and / or procedure in the patient's chart. However, the narrative phrase printed from the coding software may appear abbreviated, or result in slightly different terminology. Coded By: Joyce Barney Date Saved: 10/29/2017 09:43 am Normal [facility] Main OR Intraoperative Recor don 10-25-2017 Main OR Intraoperative Record IntraOp Document Type FT Summary Primary Physician: Nilesh Schulte MD Finalized Date/Time: 10/25/17 11:57:16 Pt. Name: KIRILL ECHOLS/Sex: 1965 Male Med Rec #: [id number] Physician: Nilesh Schulte MD Financial #: [id number] Pt. Type: O Room/Bed: / Admit/Disch: 10/24/17 [...] Performed Scrub - Other Surgeon - Primary Cloth Seconds Sorter - Primary Time In 10/24/17 13:16:00 10/24/17 13:16:00 10/24/17 13:16:00 Time Out 10/24/17 13:32:00 10/24/17 13:32:00 10/24/17 13:32:00 Procedure SIGMOIDOSCOPY(.) SIGMOIDOSCOPY(.) SIGMOIDOSCOPY(.) Comments help in room Last Modified By: Zhao RN, Dana Churchill RN, Dana Churchill RN, Dana 10/24/17 13:33:50 10/24/17 13:33:50 10/24/17 13:33:50 Entry 4 Entry 5 Case Attendee Lisset Chambers CST, Stephanie Role Performed Anesthesiologist Scrub - Primary Expert Witness Time In 10/24/17 13:16:00 10/24/17 13:16:00 Time [...] Stacey Hayes Salam Given Nilesh Cuevas MD, Zhao GIBSON, Leno Cortez Carly C Time [...] and tissue Entry 1 Skin Integrity Intact, Altus, Warm, and Skin Abnormality No Dry Outcomes [...] transport Entry 1 Via Cart By Dana Chucrhill RN Safety Precautions Side Rails Up Outcomes [...] RN Patient Status Stable Skin. Condition Intact, Altus, Warm, and Dry Airway Maintenance Oxygen in Use? No Airway Device N/A Outcomes Met? Yes Last Modified By: Dana Churchill RN 10/24/17 10:56:46 Post-Care Text: The patient is free from signs and symptoms of injury related to transfer/transport General Comments: REPORT GIVEN TO BIOSTATISTICS DIRECTOR/ AW devulcanizer head Administration FT Pre-Care Text: Verifies allergies, administers prescribed medications and solutions, administers prescribed antibiotic therapy and immunizing agents as ordered, evaluates response to medications Administers prescribed medications and solutions Entry 1 Expiration Date Yes Outcomes Met? Yes Verified Last Modified By: Dana Churchill RN 10/24/17 10:56:32 Post-Care Text: The patient received appropriate medication(s) safely administered during the perioperative period For [facility] please see scanned medication reconcilliation form for medications used at the field during the procedure. Case Comments Finalized By: Adilia Bhatia CST Document Signatures Signed By: Dana Churchill RN 10/24/17 13:34 Dana Churchill RN 10/24/17 13:33 Adilia Bhatia CST 10/25/17 11:57 Normal [facility] History and Physicalon 10-24 History and Physical Date: 10/10/2017 2:4 5 PMPatient Name: Kirill Cao #: [id number]: MaleDOB (age): 1965 (52)Provider: Quan Gordon Physician: Mundo [place] [address] (phone) (phone) (fax)Chief Complaint: Dr ref for Abdominal pain and pancreatitisHistory of Present Illness:52 years old -[place] male, was last seen in December 2015 [...] vomiting, weight loss.Printed on 10/19/2017 Kirill Echols, [id number], 1965 Page 1 of 4Printed on 10/19/2017 Kirill Echols, 35608, 1965Genitourinary: Denies dark urine, decrease in urine flow, dysuria, frequent urinary infections, frequent urination,hematuria, impotence, nocturia, urethral discharge or incontinence, sexual difficulty, sexual transmitteddiseases, kidney disease, kidney stones, pain with urination.Respiratory: Denies asthma, cough, dyspnea, excessive sputum, hemoptisis, shortness of breath with exercise,wheezing, coughing up blood.Vital Signs:BP(mmHg)Pulse(ppm) Rhythm Weight (lbs/oz) Height (ft/in) BMI Resp/min Zuvc610/79 91 Regular 145 / 6 / 1 [...] insufficiency, we will get old records from [facility] to evaluatefor recent computed tomography scan, consider repeating EGD and colonoscopy if still negativeAlcohol abuse, advised to stop alcohol completelyPlan: Flexible Sigmoidoscopy will be performed at [facility].Labs Ordered: CBCLabs Ordered: Chem 6 (BUN, Creatinine, LYTES)Labs Ordered: Hepatic Panel (ALP, T/Dbil, Alb, AST, ALT, TP A/G Ratio)Stool Ordered: Fecal ElastaseObtain all old recordsRisk & Medical Necessity: Diagnosis and management options are Minimal. The amount of data reviewed and/orordered is Minimal/None. The level of risk is Minimal.Printed on 10/19/2017 Kirill Echols 79572, 1965 Page 2 of 4Printed on 10/19/2017 Kirill Echols 96911, 1965Nilesh Schulte MD Kirill Onesimo 72016, 1965 Page 3 of 4Printed on 10/19/2017 Kirill Echols 38007, 1965Printed on 10/19/2017 Kirill Echols 80236, 1965 Page 4 of 4Printed on 10/19/2017 Kirill Echols 15215, 1965no change Normal [facility] Comment on above: Result Comment: Elec tronically Signed By: Nilesh Schulte MD\.br\Date and Time Signed: 10/24/17 13:25 EDT Inpatient Patient Summaryon 10-24-2017 [facility] InstructionsP[facility] INFORMATION Name: KIRILL ECHOLS PHYSICIANS Admitting Physician: [place] Schulte MD Physician: Nilesh Schulte MD PCP: Lucie ADNREA MD Diagnosis: Internal hemorrhoids Comment: PATIENT EDUCATION INFORMATIONInstructions: Flexible Sigmoidoscopy, Care AfterMedication Leaflets:Follow up:With: Address: When: Nilesh Schulte [facility], [address] [place] [address] Business (1) Comments: Keep scheduled appointment Call for any problems. Call for severe abdominal pain MEDICATION LISTComment: Normal [facility] Main OR PACU I Recordon 10-12 Main OR PACU I Record PACU Phase I Docum ent Type FT Summary Primary Physician: Nilesh Schulte MD Finalized Date/Time: 10/24/17 14:10:53 Pt. Name: KIRILL ECHOLS/Sex: 1965 Male Med Rec #: [id number] Physician: Nilesh Schulte MD Financial #: [id number] Pt. Type: O Room/Bed: / Admit/Disch: 10/24/17 [...] By: Cherry [facility] RN 10/24/17 14:10 Normal [facility] Main OR Preoperative Recordo n 10-24-2017 Main OR Preoperative Record Holding Area Document Type FT Summary Primary Physician: Nilesh Schulte MD Finalized Date/Time: 10/24/17 12:22:15 Pt. Name: KIRILL ECHOLS/Sex: 1965 Male Med Rec #: [id number] Physician: Nilesh Schulte MD Financial #: [id number] Pt. Type: O Room/Bed: / Admit/Disch: 10/24/17 [...] By: Nikky David RN 10/24/17 12:22 Normal [facility] Patient Education - Texton 0 10-24-2017 [...] had a biopsy.HOME CARE INSTRUCTIONS? Only take [id number] or prescription medicines for pain, fever, or [...] 05/05/2014 Document Reviewed: 05/05/2014ExitCare? Patient Information ?2014 [employer]. This information is not intended to replace advice given to you by your health care provider. Make sure you discuss any questions you have with your health care provider. [facility] Progress Note-Physicianon Progress Note-Physician Patient: KIRILL [...] 13:55) 108 (OCT 24 13:33) 143 (OCT 13 13:17)DBP H 94 (OCT 24 13:55) 74 (OCT 13 13:35) H 105 (OCT 13 13:50)SpO2 98 (OCT 24 13:55) 98 (OCT [...] be discharged from PACU when criteria met. [facility] Comment on above: Result Comment: Elec [...] 37.0 (OCT 24 12:)Heart Rate 78 (OCT 24:) 78 (OCT 24 12:22) 78 (OCT 24:)Resp Rate 10 (OCT 24:) 10 (OCT 24 12:22) 10 (OCT 24 12:)SBP 131 (OCT 24 12:22) 131 (OCT 24 12:22) 131 (OCT 24 12:22)DBP 86 (OCT 24:) 86 (OCT 24 12:22) 86 (OCT 24 12:22)SpO2 98 (OCT 24 12:) 98 (OCT 24 12:) 98 (OCT 24:) Measurements from flowsheet : Measurements 10/24/2017 12:22 EDT Height/Length Measured 185.42 cm Body Mass Index Measured 19.14 kg/m2 Weight Measured 65.8 kg Airway: Mallampati classification: Normal oral/pharyngeal anatomy. Respiratory: Respirations are non-labored. Cardiovascular: normal peripheral perfusion. Neurologic: Alert. Review / Management Results review: No qualifying data available. Condition: Stable. Plan [place] [employer] Anesthesiologists (ASA) physical status classification: Class II. Anesthetic Preoperative Plan Anesthesia: General. , Monitored anesthesia care. Anesthetic plan, risks, benefits, and alternatives discussed with the patient and/or family. Patient verbalized understanding. Risks, benefits, alternatives discussed. Questions answered. . Normal [facility] Comment on above: Result Comment: Elec tronically Signed By: Cuba Harrington DO\Date and Time Signed: 10/24/17 12:38 EDT Vital Signs Date Time Vital Sign Value Performing Clinician Facility 06-29-2023 10:54-0500 Body temperature 97.9 [degF] MD Rylan Andrea Work Phone: [facility] 06-29-2023 10:54-0500 Body weight 69.85 kg MD Rylan Andrea Work Phone: [facility] 06-29-2023 10:54-0500 Diastolic blood pressure 88 mm[Hg] MD Rylan Andrea Work Phone: [facility] 06-29-2023 10:54-0500 Heart rate 88 /min MD Rylan Andrea Work Phone: [facility] 06-29-2023 10:54-0500 Respiratory rate 20 /min MD Rylan Andrea Work Phone: [facility] 06-29-2023 10:54-0500 SaO2% (BldA) [Mass fraction] 97 % MD Rylan Andrea Work Phone: [facility] 06-29-2023 10:54-0500 Systolic blood pressure 140 mm[Hg] MD Rylan Andrea Work Phone: [facility] 12-25-2022 11:05-0400 Body temperature 97.7 [degF] MD Rylan Andrea Work Phone: [facility] 12-25-2022 11:05-0400 Body weight 66.95 kg MD Rylan Andrea Work Phone: [facility] 12-25-2022 11:05-0400 Diastolic blood pressure 85 mm[Hg] MD Rylan Andrea Work Phone: [facility] 12-25-2022 11:05-0400 Heart rate 94 /min MD Rylan Andrea Work Phone: [facility] 12-25-2022 11:05-0400 Respiratory rate 18 /min MD Rylan Andrea Work Phone: [facility] 12-25-2022 11:05-0400 SaO2% (BldA) [Mass fraction] 97 % MD Rylan Andrea Work Phone: [phone] [place] [address] 12-25-2022 11:05-0400 Systolic blood pressure 136 mm[Hg] MD Rylan Andrea Work Phone: [facility] 11-01-2022 10:41-0400 Body temperature 97.6 [degF] MD Rylan Andrea Work Phone: [facility] 11-01-2022 10:41-0400 Body weight 68.26 kg MD Rylan Andrea Work Phone: [facility] 11-01-2022 10:41-0400 Diastolic blood pressure 82 mm[Hg] MD Rylan Andrea Work Phone: [facility] 11-01-2022 10:41-0400 Heart rate 103 /min MD Rylan Andrea Work Phone: [facility] 11-01-2022 10:41-0400 Respiratory rate 18 /min MD Rylan Andrea Work Phone: [facility] 11-01-2022 10:41-0400 SaO2% (BldA) [Mass fraction] 99 % MD Rylan Andrea Work Phone: [facility] 11-01-2022 10:41-0400 Systolic blood pressure 121 mm[Hg] MD Rylan Andrea Work Phone: [facility] 10-26-2022 12:05-0400 Body height 182.88 cm MD Rylan Andrea Work Phone: [facility] 10-26-2022 12:05-0400 Body temperature 97.6 [degF] MD Rylan Andrea Work Phone: [facility] 10-26-2022 12:05-0400 Body weight 69 kg MD Rylan Andrea Work Phone: [facility] 10-26-2022 12:05-0400 Diastolic blood pressure 77 mm[Hg] MD Rylan Andrea Work Phone: [facility] 10-26-2022 12:05-0400 Heart rate 100 /min MD Rylan Andrea Work Phone: [facility] 10-26-2022 12:05-0400 Respiratory rate 20 /min MD Rylan Andrea Work Phone: [facility] 10-26-2022 12:05-0400 SaO2% (BldA) [Mass fraction] 98 % MD Rylan Andrea Work Phone: [facility] 10-26-2022 12:05-0400 Systolic blood pressure 120 mm[Hg] MD Rylan Andrea Work Phone: [facility] 09-19-2022 09:33-0400 Body weight 70.39 kg MD Rylan Andrea Work Phone: [facility] 09-19-2022 09:33-0400 Diastolic blood pressure 85 mm[Hg] MD Rylan Andrea Work Phone: [facility] 09-19-2022 09:33-0400 Heart rate 85 /min MD Rylan Andrea Work Phone: [facility] 09-19-2022 09:33-0400 Respiratory rate 20 /min MD Rylan Andrea Work Phone: [facility] 09-19-2022 09:33-0400 SaO2% (BldA) [Mass fraction] 97 % MD Rylan Andrea Work Phone: [facility] 09-19-2022 09:33-0400 Systolic blood pressure 128 mm[Hg] MD Rylan Andrea Work Phone: [facility] 09-04-2022 11:26-0400 Body temperature 98.6 [degF] MD Rylan Andrea Work Phone: [facility] 06-22-2022 13:07-0500 Body height 182.88 cm MD Rylan Andrea Work Phone: [facility] 06-22-2022 13:07-0500 Body temperature 98 [degF] MD Rylan Andrea Work Phone: [facility] 06-22-2022 13:07-0500 Body weight 73.2 kg MD Rylan Andrea Work Phone: [facility] 06-22-2022 13:07-0500 Diastolic blood pressure 88 mm[Hg] MD Rylan Andrea Work Phone: [facility] 06-22-2022 13:07-0500 Heart rate 112 /min MD Rylan Andrea Work Phone: [facility] 06-22-2022 13:07-0500 Respiratory rate 20 /min MD Rylan Andrea Work Phone: [facility] 06-22-2022 13:07-0500 SaO2% (BldA) [Mass fraction] 99 % MD Rylan Andrea Work Phone: [facility] 06-22-2022 13:07-0500 Systolic blood pressure 137 mm[Hg] MD Rylan Andrea Work Phone: [facility] 06-17-2022 12:00-0500 Body temperature 98.1 [degF] MD Rylan Andrea Work Phone: [facility] 06-17-2022 12:00-0500 Diastolic blood pressure 91 mm[Hg] MD Rylan Andrea Work Phone: [facility] 06-17-2022 12:00-0500 Heart rate 94 /min MD Rylan Andrea Work Phone: [facility] 06-17-2022 12:00-0500 Respiratory rate 20 /min MD Rylan Andrea Work Phone: [facility] 06-17-2022 12:00-0500 SaO2% (BldA) [Mass fraction] 97 % MD Rylan Andrea Work Phone: [facility] 06-17-2022 12:00-0500 Systolic blood pressure 142 mm[Hg] MD Rylan Andrea Work Phone: [facility] 06-16-2022 09:51-0500 Body height 182.88 cm MD Rylan Andrea Work Phone: [facility] 06-16-2022 09:51-0500 Body mass index (BMI) [Ratio] 20.2 kg/m2 MD Rylan Andrea Work Phone: [facility] 06-16-2022 09:51-0500 Body weight 67.9 kg MD Rlyan Andrea Work Phone: [facility] 06-15-2022 12:00-0500 Body height 185.42 cm Rachid Chase Other [employer] [facility] [employer] Other 06-15-2022 12:00-0500 Body mass index (BMI) [Ratio] 19.63 kg/m2 Rachid Blandban Other [employer] Other 06-15-2022 12:00-0500 Body temperature 97 [degF] Rachid Blandban Other [employer] Other 06-15-2022 12:00-0500 Body weight 67.5 kg Celsoal Edwinaban Other [employer] Other 06-15-2022 12:00-0500 Diastolic blood pressure 82 mm[Hg] Kamal Chaban Other [employer] Other 06-15-2022 12:00-0500 Respiratory rate 20 /min Celsoal Edwinaban Other [employer] Other 06-15-2022 12:00-0500 SaO2% (BldA) [Mass fraction] 98 % Rachid Blandban Other [employer] Other 06-15-2022 12:00-0500 Systolic blood pressure 114 mm[Hg] Rachid Chaban Other [employer] Other 05-31-2022 15:30-0500 Body height 185.42 cm Rachid Blandban Other [employer] Other 05-31-2022 15:30-0500 Body mass index (BMI) [Ratio] 19.92 kg/m2 Rachid Blandban Other [employer] Other 05-31-2022 15:30-0500 Body temperature 97.6 [degF] Rachid Blandban Other [employer] Other 05-31-2022 15:30-0500 Body weight 68.49 kg Rachid Blandban Other [employer] Other 05-31-2022 15:30-0500 Diastolic blood pressure 80 mm[Hg] Rachid Blandban Other [employer] Other 05-31-2022 15:30-0500 Respiratory rate 20 /min Rachid Blandban Other [employer] Other 05-31-2022 15:30-0500 SaO2% (BldA) [Mass fraction] 98 % Rachid Blandban Other [employer] Other 05-31-2022 15:30-0500 Systolic blood pressure 122 mm[Hg] Celsoal Chaban Other [employer] Other 04-21-2022 09:50-0500 Diastolic blood pressure 74 mm[Hg] MD Rylan Andrea Work Phone: [facility] 04-21-2022 09:50-0500 Heart rate 80 /min MD Rylan Andrea Work Phone: [facility] 04-21-2022 09:50-0500 Respiratory rate 18 /min MD Rylan Andrea Work Phone: [facility] 04-21-2022 09:50-0500 SaO2% (BldA) [Mass fraction] 99 % MD Rylan Andrea Work Phone: [facility] 04-21-2022 09:50-0500 Systolic blood pressure 111 mm[Hg] MD Rylan Andrea Work Phone: [facility] 04-21-2022 08:21-0500 Body height 182.88 cm MD Rylan Andrea Work Phone: [facility] 04-21-2022 08:21-0500 Body weight 70.3 kg MD Rylan Andrea Work Phone: [facility] 04-18-2022 13:59-0500 Diastolic blood pressure 82 mm[Hg] MD Rylan Andrea Work Phone: [facility] 04-18-2022 13:59-0500 Heart rate 99 /min MD Rylan Andrea Work Phone: [facility] 04-18-2022 13:59-0500 Respiratory rate 20 /min MD Rylan Andrea Work Phone: [facility] 04-18-2022 13:59-0500 SaO2% (BldA) [Mass fraction] 99 % MD Rylan Andrea Work Phone: [facility] 04-18-2022 13:59-0500 Systolic blood pressure 117 mm[Hg] MD Rylan Andrea Work Phone: [facility] 04-18-2022 12:41-0500 Body height 185.42 cm MD Rylan Andrea Work Phone: [facility] 04-18-2022 12:41-0500 Body weight 72.12 kg MD Rylan Andrea Work Phone: [facility] 04-14-2022 11:23-0500 Body temperature 98.3 [degF] MD Rylan Andrea Work Phone: [facility] 04-14-2022 11:23-0500 Body weight 70.3 kg MD Rylan Andrea Work Phone: [facility] 04-14-2022 11:23-0500 Diastolic blood pressure 93 mm[Hg] MD Rylan Andrea Work Phone: [facility] 04-14-2022 11:23-0500 Heart rate 95 /min MD Rylan Andrea Work Phone: [facility] 04-14-2022 11:23-0500 Respiratory rate 20 /min MD Rylan Andrea Work Phone: [facility] 04-14-2022 11:23-0500 SaO2% (BldA) [Mass fraction] 100 % MD Rylan Andrea Work Phone: [facility] 04-14-2022 11:23-0500 Systolic blood pressure 130 mm[Hg] MD Rylan Andrea Work Phone: [facility] 04-11-2022 16:03-0500 Body temperature 97.5 [degF] MD Rylan Andrea Work Phone: [facility] 04-11-2022 16:03-0500 Diastolic blood pressure 88 mm[Hg] MD Rylan Andrea Work Phone: [facility] 04-11-2022 16:03-0500 Heart rate 89 /min MD Rylan Andrea Work Phone: [facility] 04-11-2022 16:03-0500 Respiratory rate 15 /min MD Rylan Andrea Work Phone: [facility] 04-11-2022 16:03-0500 SaO2% (BldA) [Mass fraction] 97 % MD Rylan Andrea Work Phone: [facility] 04-11-2022 16:03-0500 Systolic blood pressure 125 mm[Hg] MD Rylan Andrea Work Phone: [facility] 04-11-2022 05:07-0500 Body weight 67.7 kg MD Rylan Andrea Work Phone: [facility] 04-10-2022 15:56-0500 Body height 182.88 cm MD Rylan Andrea Work Phone: [facility] 04-10-2022 15:56-0500 Body temperature 98.2 [degF] MD Rylan Andrea Work Phone: [facility] 04-10-2022 15:56-0500 Body weight 66.7 kg MD Rylan Andrea Work Phone: [facility] 04-10-2022 15:56-0500 Diastolic blood pressure 99 mm[Hg] MD Rylan Andrea Work Phone: [facility] 04-10-2022 15:56-0500 Heart rate 99 /min MD Rylan Andrea Work Phone: [facility] 04-10-2022 15:56-0500 Respiratory rate 20 /min MD Rylan Andrea Work Phone: [facility] 04-10-2022 15:56-0500 SaO2% (BldA) [Mass fraction] 98 % MD Rylan Andrea Work Phone: [facility] 04-10-2022 15:56-0500 Systolic blood pressure 148 mm[Hg] MD Rylan Andrea Work Phone: [facility] 02-27-2022 14:35-0400 Body height 182.88 cm MD Rylan Andrea Work Phone: [facility] 02-27-2022 14:35-0400 Body temperature 97.7 [degF] MD Rylan Andrea Work Phone: [facility] 02-27-2022 14:35-0400 Body weight 70.35 kg MD Rylan Andrea Work Phone: [facility] 02-27-2022 14:35-0400 Diastolic blood pressure 90 mm[Hg] MD Rylan Andrea Work Phone: [facility] 02-27-2022 14:35-0400 Heart rate 80 /min MD Rylan Andrea Work Phone: [facility] 02-27-2022 14:35-0400 Respiratory rate 20 /min MD Rylan Andrea Work Phone: [facility] 02-27-2022 14:35-0400 SaO2% (BldA) [Mass fraction] 99 % MD Rylan Andrea Work Phone: [facility] 02-27-2022 14:35-0400 Systolic blood pressure 138 mm[Hg] MD Rylan Andrea Work Phone: [facility] 09-13-2021 16:00-0400 Body height 185.42 cm Anita Salazar Other [employer] [facility] [employer] Other 09-13-2021 16:00-0400 Body mass index (BMI) [Ratio] 20.45 kg/m2 Anita Salazar Other [employer] Other 09-13-2021 16:00-0400 Body temperature 99.4 [degF] Anitaaylin Lincoln Other [employer] Other 09-13-2021 16:00-0400 Body weight 70.31 kg Anita Salazar Other [employer] Other 09-13-2021 16:00-0400 Diastolic blood pressure 82 mm[Hg] Anita Lincoln Other [employer] Other 09-13-2021 16:00-0400 Respiratory rate 18 /min Anita Lincoln Other [facility] [employer] Other 09-13-2021 16:00-0400 SaO2% (BldA) [Mass fraction] 97 % Anita Lincoln Other [facility] [employer] Other 09-13-2021 16:00-0400 Systolic blood pressure 160 mm[Hg] Anita Lincoln Other [facility] [employer] Other 09-08-2021 10:09-0400 Diastolic blood pressure 78 mm[Hg] Rylan Flaherty [employer] Work Phone: [facility] [employer] DO Work Phone: 09-08-2021 10:09-0400 Systolic blood pressure 118 mm[Hg] Rylan Flaherty [employer] Work Phone: [facility] [employer] 250 DO Work Phone: 09-08-2021 10:05-0400 Body height 182.88 cm Rylan Flaherty [email or web address] Phone: [facility] [employer] DO Work Phone: 09-08-2021 10:05-0400 Body mass index (BMI) [Ratio] 21.16 kg/m2 Rylan Flaherty [email or web address] Phone: [facility] [employer] 250 DO Work Phone: 09-08-2021 10:05-0400 Body surface area Derived from formula 1.92 m2 Rylan Flaherty [email or web address] Phone: [facility] [employer] 250 DO Work Phone: 09-08-2021 10:05-0400 Body weight 70.76 kg Rylan Flaherty [email or web address] Phone: [facility] [employer] DO Work Phone: 09-08-2021 10:05-0400 Diastolic blood pressure 76 mm[Hg] Rylan A Andrea Work Phone: [facility] 250 DO Work Phone: 09-08-2021 10:05-0400 Heart rate 96 /min Rylan A Andrea Work Phone: [facility] 250 DO Work Phone: 09-08-2021 10:05-0400 Systolic blood pressure 120 mm[Hg] Rylan A Andrea Work Phone: [facility] 250 DO Work Phone: 09-08-2021 10:05-0400 20 1 Rylan A Andrea Work Phone: [facility] 250 DO Work Phone: Comment on above: PHQ-9 TS Encounters Encounter Date Encounter Type Care Provider Facility Start: 12-25-2023 End: 12-25-2023 ambulatory RYLAN ANDREA Not Available Start: 12-03-2023 End: 12-03-2023 ambulatory MARILU WARCHOL Not Available Start: 11-12-2023 End: 11-12-2023 ambulatory MARILU WARCHOL Not Available Start: 10-31-2023 End: 10-31-2023 ambulatory FLORINDA MONK Not Available Start: 10-17-2023 ambulatory Varghese Duval Facility :[facility] Start: 10-04-2023 End: 10-04-2023 ambulatory MARILU WARCHOL Not Available Start: 09-19-2023 End: 09-19-2023 ambulatory MARILU WARCHOL Not Available Start: 09-11-2023 ambulatory RYLAN ANDREA [facility] Start: 09-11-2023 End: 09-11-2023 ambulatory MARILU WARCHOL Not Available Start: 08-16-2023 End: 08-16-2023 ambulatory RYLAN ANDREA Not Available Start: 06-29-2023 End: 06-29-2023 ambulatory MD Rylan Andrea Work Phone: [facility] Work Phone: Start: 06-29-2023 End: 06-29-2023 Patient encounter procedure MD Rylan Andrea [facility] Work Phone: Start: 06-29-2023 Registered Recurring MD Rylan Andrea [facility] Work [facility]: Start: 06-25-2023 External Result Encounter Estela Rosales Tadeoroxann DO Work Phone: [facility] External Department Unsolicited Start: 06-25-2023 External Result Encounter Estela Rosales Kojo DO Work Phone: [facility] External Department Unsolicited Start: 04-12-2023 End: 04-12-2023 ambulatory MARILU PIERSONLUCIANA Not Available Start: 12-25-2022 End: 12-25-2022 ambulatory MD Rylan Andrea Work Phone: [facility] Work Phone: Start: 12-25-2022 End: 12-25-2022 Registered Recurring MD Rylan Andrea Work Phone: [facility] Work Phone: Start: 11-01-2022 End: 11-01-2022 ambulatory MD Rylan Andrea Work Phone: [facility] Work Phone: Start: 11-01-2022 End: 11-01-2022 Registered Recurring MD Rylan Andrea Work Phone: [facility] Work Phone: Start: 10-26-2022 End: 10-26-2022 Emergency department patient visit MD Rylan Andrea Work Phone: [facility]-Emergency Room Work Phone: Start: 10-26-2022 Registered Recurring MD Rylan Andrea Work Phone: [facility] Work Phone: Start: 10-18-2022 End: 10-18-2022 ambulatory MD Rylan Andrea Work Phone: [facility] Work Phone: Start: 10-18-2022 End: 10-18-2022 Patient encounter procedure MD Rylan Andrea Work Phone: [facility] [place] Work Phone: Start: 10-10-2022 End: 10-10-[address] RYLAN ANDREA Facility:H1 Start: 10-03-2022 End: 10-03-[address] RYLAN ANDREA Facility:H1 Start: 09-19-2022 End: 09-19-2022 ambulatory MD Rylan Andrea Work Phone: [facility] Work Phone: Start: 09-19-2022 End: 09-19-2022 Registered Recurring MD Rylan Andrea Work Phone: [facility] Work Phone: Start: 09-19-2022 Registered Recurring MD Rylan Andrea Work Phone: [facility] Work Phone: Start: 09-11-2022 End: 09-11-[address] RYLAN ANDREA Facility:H1 Start: 09-08-2022 End: 09-08-[address] RYLAN ANDREA Facility:H1 Start: 09-04-2022 End: 09-04-[address] RYLAN ANDREA Facility:H1 Start: 09-01-2022 End: 09-02-[address] RYLAN ANDREA Facility:H1 Start: 08-27-2022 End: 08-27-[address] MELANI IBRAHIM Facility:H1 Start: 06-22-2022 End: 06-22-2022 ambulatory MD Rylan Andrea Work Phone: [facility] Work Phone: Start: 06-22-2022 End: 06-22-2022 Registered Recurring MD Rylan Andrea Work Phone: [facility] Work Phone: Start: 06-18-2022 End: 06-18-[address] JESSE RAMOS Facility: Start: 06-16-2022 End: 06-17-2022 Admission to same day surgery center MD Rylan Andrea Work Phone: [facility]Surgery [facility] [place] Start: 06-15-2022 Office outpatient vi sit 25 minutes Kamal Chaban [facility] Start: 06-15-2022 End: 06-15-2022 ambulatory MD Rylan Andrea Work Phone: [facility] Work Phone: Start: 06-15-2022 End: 06-15-2022 Patient encounter procedure MD Rylan Andrea Work Phone: [facility]-Pre-Surgical Testing Work Phone: Start: 06-01-2022 End: 06-01-2022 ambulatory MD Rylan Andrea Work Phone: [facility] Work Phone: Start: 06-01-2022 End: 06-01-2022 Patient encounter procedure MD Rylan Andrea Work Phone: [facility]-CT Scan [place] Work Phone: Start: 05-31-2022 End: 05-31-2022 ambulatory Kamal Chaban Other [employer] Other Start: 05-31-2022 Office outpatient ne w 45 minutes Kamal Chaban [facility] Start: 04-21-2022 End: 04-21-2022 Admission to same day surgery center MD Rylan Andrea Work Phone: [facility] [place] Start: 04-21-2022 End: 04-21-2022 ambulatory MD Rylan Andrea Work Phone: [facility] Work Phone: Start: 04-18-2022 End: 04-18-2022 Admission to same day surgery center MD Rylan Andrea Work Phone: [facility] [place] Start: 04-18-2022 End: 04-18-2022 ambulatory MD Rylan Andrea Work Phone: [facility] Work Phone: Start: 04-14-2022 End: 04-14-2022 ambulatory MD Rylan Andrea Work Phone: [facility] Work Phone: Start: 04-14-2022 End: 04-14-2022 Registered Recurring MD Rylan Andrea Work Phone: [facility] Start: 04-14-2022 Registered Recurring MD Rylan Andrea Work Phone: [facility] Start: 04-10-2022 End: 04-11-2022 Evaluation and management of inpatient MD Rylan Andrea Work Phone: [facility] Start: 04-10-2022 observation encounter MD Rylan Andrea Work Phone: [facility] Work Phone: Start: 04-10-2022 Registered Recurring MD Rylan Andrea Work Phone: [facility] Start: 02-27-2022 End: 02-27-2022 ambulatory MD Rylan Andrea Work Phone: [facility] Work Phone: Start: 02-27-2022 End: 02-27-2022 Registered Recurring MD Rylan Andrea Work Phone: [facility] Start: 11-29-2021 ambulatory Rylan Ortiz ity:[id number] Start: 11-23-2021 End: 11-24-[address] MARCE PAGAN Facility:H1 Start: 09-13-2021 Chart Update Rylan Andrea Work Phone: [facility] 250 DO Work Phone: Start: 09-13-2021 End: 09-13-2021 ambulatory Anita Lincoln Other [facility] [employer] Other Start: 09-13-2021 Office outpatient vi sit 25 minutes Anita Lincoln [facility] Start: 09-09-2021 ambulatory Rylan Andrea [facility] ity:[id number] Start: 09-09-2021 [facility], Provider: Lukas Oliveira, Status: Pen, Time: 1:00 PM Rylan Andrea Work Phone: [facility] DO Work Phone: Start: 09-08-2021 Office consultation new/estab patient 80 min Rylan Andrea Work Phone: [facility] DO Work Phone: Start: 09-08-2021 ambulatory Estela Varma Facility: Start: 08-06-2020 End: 08-07-2020 Patient encounter procedure [facility] Start: 04-24-2018 End: 05-14-2018 Patient encounter procedure CUBA Flaherty [facility] Start: 10-24-2017 End: 10-25-2017 Ambulatory [facility] Facility:[facility] Procedures Date Procedure Procedure Detail Performing Clinician Start: 06-25-2023 Carcinoembryonic antigen cea Estela Varma DO Work Phone: Comment on above: Serial tumor marker results determined by assays using different manufacturers or methods may not be comparable. [facility] sky line yarder and method: VALENTINE UNICEL DXI, 2 SITE IMMUNOENZYMATIC SANDWICH ASSAY. Start: 06-25-2023 Positron emission to mography with computed tomography MD Rylan Andrea Work Phone: Start: 06-25-2023 Carcinoembryonic antigen cea Estela Varam DO Work Phone: Comment on above: Result Comment: Georges deshpande tumor marker results determined by assays using different manufacturers or methods may not be comparable. [facility] sky line yarder and method: VALENTINE UNICEL DXI, 2 SITE IMMUNOENZYMATIC ?SANDWICH? ASSAY. PERFORMED BY: [address] [place] [id number] PATHOLOGIST SPORTS DEVELOPMENT OFFICER CATY DELCID M.D. Performed By: #### C BC, MARILU, LIPASE, FE and TIBC, CEA, T4F, TSH3, YUSUF, [id number], CMP ####[address]#### METH ####[facility] , Start: 06-25-2023 Complete blood count with white cell differential, automated Estela Varma DO Work Phone: Start: 06-25-2023 GLUCOSE POCT GLUCOMETERS Estela Varma DO Work Phone: Start: 03-30-2023 Carcinoembryonic antigen cea Varghese Duval Comment on above: Result Comment: PERF ORMED BY: [address] [place] [id number] PATHOLOGIST SPORTS DEVELOPMENT OFFICER CATY DELCID M.D. Performed By: #### C EA, CBC, FOL, B12, CMP, FE and TIBC, LIPASE, MARILU, T4F ####[address]#### METH ####[facility] , Start: 12-22-2022 Positron emission to mography with computed tomography MD Rylan Andrea Work Phone: Start: 10-26-2022 Plain chest X-ray MD Katarina Andrea Work Phone: Start: 10-18-2022 Plain chest X-ray MD Katarina Andrea Work Phone: Start: 05-05-2023 Positron emission to mography with computed tomography [...] contrast MD Rylan Andrea Work Phone: Start: 06-13-2018 Cookie olivas DO Work Phone: Aerobic microbial [...] Rylan Averyter Work Phone: Total colonoscopy Rylan Flaherty Ba xter Work Phone: Comment on above: 2016; Vasectomy Rylan Averyter Work Phone: Plan of Treatment Date Care Activity Detail Author Start: 10-25-2027 Screening for malign ant neoplasm of colon [facility] Start: 11-11-2023 Influenza vaccination Influenza Vacc ine (#1) [facility] Comment on above: Postponed from 01/12 (Patient Refused) Start: 07-10-2023 End: 07-10-2023 Patient encounter procedure 07/10/2023 1:40 PM EST Office Visit [facility] [address] [place] [id number] Rylan Andrea MD [address] [place] [address] [facility] Start: 06-25-2023 [facility] Start: 12-11-2022 [facility] Start: 10-26-2022 Erythropoietin (EPO) [Units/volume] in Serum or Plasma [facility] Start: 06-17-2022 [facility] Start: 06-16-2022 Referral to clinical cardiac catheterization technician [facility] Start: 04-21-2022 [facility] Start: 04-21-2022 Ultrasonic guidance for thoracentesis [facility] Start: 04-18-2022 [facility] Start: 12-06-2022 Ultrasonic guidance for thoracentesis [facility] Start: 04-14-2022 [facility] Start: 04-11-2022 [facility] Start: 04-11-2022 Troponin I.cardiac [Mass/volume] in Serum or Plasma by High sensitivity method [facility] Start: 04-10-2022 Referral to oncologist [facility] Start: 04-10-2022 Hospital admission [facility] Start: 04-10-2022 [facility] Start: 02-27-2022 [facility] Start: 11-29-2021 [facility], Provider: Lukas Oliveira, Status: Pen, Time: 11:10 AM [facility], Provider: Lukas Oliveira, Status: Pen, Time: 11:10 AM [facility] DO Work Phone: Start: 09-05-2021 [facility] Start: 08-22-2021 [facility] Start: 04-05-2021 [facility] Start: 02-01-2021 [facility] Start: 08-16-2020 [facility] Start: 08-05-2020 [facility] Start: 07-26-2020 [facility] Start: 07-06-2020 [facility] Start: 06-29-2020 [facility] Start: 06-14-2020 [facility] Start: 05-24-2020 [facility] Start: 05-03-2020 [facility] Start: 04-12-2020 [facility] Start: 04-12-2020 [facility] Start: 03-08-2020 [facility] Start: 02-24-2020 [facility] Start: 02-18-2020 [facility] Start: 02-16-2020 End: 02-16-2020 [facility] Start: 02-16-2020 [facility] Start: 02-10-2020 [facility] Start: 02-04-2020 End: 02-04-2020 [facility] Start: 01-28-2020 [facility] Start: 01-26-2020 [facility] Start: 01-26-2020 [facility] Start: 01-21-2020 [facility] Start: 01-21-2020 End: 01-21-2020 [facility] Start: 01-06-2020 [facility] Start: 01-05-2020 [facility] Start: 12-15-2019 [facility] Start: 11-24-2019 [facility] Start: 1965 Screening for malign ant neoplasm of colon [facility] Amylase [Enzymatic activity/volume] in Serum or Plasma Amylase Lab Routine 06/25/2023 7:57 AM EST [facility] Bacteria identified in Blood by Culture [facility] Blood culture for bacteria, including anaerobic screen Blood Culture [facility] Carcinoembryonic Ag [Mass/volume] in Serum or Plasma [facility] Comprehensive metabo lic 1999 panel - Serum or Plasma [facility] Comprehensive metabo lic 1999 panel - Serum or Plasma [facility] Comprehensive metabo lic 1999 panel - Serum or Plasma [facility] Comprehensive metabo lic 1999 panel - Serum or Plasma [facility] Comprehensive metabo lic 1999 panel - Serum or Plasma Comprehensive metabolic panel Lab Routine 06/25/2023 7:57 AM EST [facility] Work Phone: Comprehensive metabo lic 1999 panel - Serum or Plasma [facility] CT Abdomen and Pelvi s W contrast IV [facility] CT Abdomen and Pelvi s W contrast IV [facility] CT Abdomen and Pelvi s W contrast IV [facility] CT Chest W contrast IV [facility] CT Chest W contrast IV [facility] CT Chest W contrast IV [facility] Erythrocyte sediment ation rate by Photometric method [facility] Erythropoietin (EPO) [Units/volume] in Serum or Plasma [facility] Iron and Iron bindin g capacity panel - Serum or Plasma Iron and TIBC Lab Routine 06/25/2023 7:57 AM EST [facility] Lipase [Enzymatic activity/volume] in Serum or Plasma Lipase Lab Routine 06/25/2023 7:57 AM EST [facility] Methylmalonate [Moles/volume] in Serum or Plasma [facility] Patient Education [facility] Work Phone: Patient referral [facility] Work Phone: Thyrotropin [Units/v olume] in Serum or Plasma [facility] Ultrasonic guidance for thoracentesis [facility] Ultrasonic guidance for thoracentesis [facility] Immunizations Immunization Date Immunization Notes Care Provider Fa mehul 09-01-2020 Pfizer-BioNTech COVID-19 Vacc 30 MCG/0.3ML Intramuscular Suspension Rylan A Andrea Work Phone: [facility] 07-30-2020 Pfizer-BioNTech COVID-19 Vacc 30 MCG/0.3ML Intramuscular Suspension Rylan A Andrea Work Phone: [facility] 03-24-2020 influenza, injectabl e, quadrivalent, preservative free Rylan A Andrea Work Phone: [facility] 03-24-2020 influenza virus vaccine, unspecified formulation Estela Varma DO Work Phone: [facility] 03-15-2020 influenza, injectabl e, quadrivalent, preservative free Rylan A Andrea Work Phone: [facility] Healthcare Payers Date Payer Category Payer Self-pay [id number] 2023 Private Health Insurance [id number] 2021 Medicaid [id number] 2021 Medicare MEDICARE MEDICAR E RAILROAD [id number] 2021-Present RUBEN [address]AYO RAILROAD MEDICARE [address] [address] [place] [address] Medicare [id number] 2018 Private Health Insurance 1965 Unknown [id number] 2.16.840.1.364005.3.579.2. 173 1965 Unknown [id number] 2.16.840.1.767036.3.579.2. 356 1965 Unknown [id number] 2.16.840.1.547915.3.579.2. 356 1965 Unknown [id number] 2.16.840.1.936413.3.579.2. 356 1965 Unknown [id number] 2.16.840.1.353778.3.579.2. 593 1965 Unknown [id number] 2.16.840.1.651177.3.579.2. 593 1965 Unknown [id number] 2.16.840.1.359170.3.579.2. 593 1965 Unknown [id number] 2.16.840.1.158073.3.579.2. 593 1965 Unknown [id number] 2.16.840.1.610420.3.579.2. 593 1965 Unknown [id number] 2.16.840.1.060549.3.579.2. 593 1965 Unknown [id number] 2.16.840.1.284422.3.579.2. 593 1965 Unknown [id number] 2.16.840.1.643960.3.579.2. 593 1965 Unknown [id number] 2.16.840.1.209505.3.579.2. 593 1965 Unknown [id number] 2.16.840.1.080086.3.579.2. 1286 1965 Unknown [id number] 2.16.840.1.283604.3.579.2. 1286 1965 Unknown [id number] 2.16.840.1.345430.3.579.2. 1286 1965 Unknown [id number] 2.16.840.1.786392.3.579.2. 1286 1965 Unknown [id number] 2.16.840.1.081520.3.579.2. 1286 1965 Unknown [id number] 2.16.840.1.058133.3.579.2. 1259 1965 Unknown [id number] 2.16.840.1.351617.3.579.2. 1259 1965 Unknown [id number] 2.16.840.1.810718.3.579.2. 9 1965 Unknown [id number] 2.16.840.1.888129.3.579.2. 1259 1965 Unknown [id number] 2.16.840.1.365067.3.579.2. 9 1965 Unknown [id number] 2.16840.1.976899.3.579.2. 9 1965 Unknown [id number] 2.16.840.1.065100.3.579.2. 9 1965 Unknown [id number] 2.16.840.1.383716.3.579.2. 9 1965 Unknown [id number] 2.16.840.1.536023.3.579.2. 1259 1959 Medicaid [id number] 1959 Medicare [id number] 1959 Private Health Insurance [id number] Private Health Insurance [facility] Insurance [employer] [id number] Unknown Unknown [id number] 2.16840.1.394087.19 Unknown [id number] 2.16840.1.982640.3.579.2. 531 Social History Date Type Detail Facility Start: 04-12-2023 End: 04-13-2023 Occasional alcohol use Occasional alcohol use [facility] Comment on above: beer; medical marijuana ed ibles; quit 2020 1ppd; Start: 04-11-2023 End: 04-12-2023 Sex Assigned At [facility] Start: 02-27-2022 End: 09-04-2022 Tobacco smoking status NHIS Ex-smoker (finding) [facility] Start: 1965 Sex Assigned At Male F [facility] Start: 10-26-2022 End: 12-25-2022 Tobacco smoking status NHIS Never smoked tobacco (finding) [facility] Start: 04-12-2023 [facility] Occasional tobacco smoker [facility] History of [...] of liquor daily. He is considering AA. [facility] Start: 1965 Sex Assigned At Not on file [facility] Start: 07-26-2022 Gender identity Identifies as male gender (finding) [facility] NEGATED: Highlighted rowStart: NINF History of tobacco use Passive smoker [facility] Medical Equipment Procedure Code Equipment Code Equipment Origin al Text Equipment Identifier Dates Repair, hernia, inguinal, with mesh Abdominal hernia surgical mesh, synthetic polymer, non-bioabsorbable [id number] FDA Start: 05-10-2020 Insertion of central venous catheter (CVC) with subcutaneous port for chemotherapy Vascular port/catheter ()[id number] FDA Start: 11-26-2019 Goals Date Patient Goal Desired Activity /State Functional Status Date Assessment Result Facility 06-17-2022 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 [facility] Work Phone: 04-11-2022 Functional status Patient at Baseline [facility] Work Phone: 04-10-2022 Functional status Patient at Baseline [facility] Work Phone: 09-08-2021 PHQ-9 [id number] Severe (20-27) -[facility] DO Work Phone: Mental Status Date Assessment Result Facility 06-17-2022 Cognitive function Cognitive Sta tus Patient at Baseline [facility] Work Phone: 04-11-2022 Cognitive function Cognitive Sta tus Patient at Baseline [facility] Work Phone: 04-10-2022 Cognitive function Cognitive Sta tus Patient at Baseline [facility] Work Phone: Clinical Notes 11-18-2019 to 11-07-2022 Note Date & Type Note Facility 11-07-2022 Progress note Note Date/Time November 01, 2022 11:06[facility] [place] [address] Hem/Onc Follow Up Note - OP Signed with Addenda Patient: Kirill Echols MR#: [id number] : 1965 Acct:[id number] Age/Sex: 57 / M Type: REG RCR [...] nothing really new going on. HPI: 54-year-old -Bolivian gentleman history of smoking 40 pack years [...] overwhelming for recurrence. He lives alone in [place]. His children live in [place]. His left him 8 months ago and [...] and urinary tract. Otherwise, there is an Svpeft-a-Rwfb on the left. The lungs demonstrate emphysematous [...] add on appointment after ER visit at [facility] on August 29, 2022 He went [...] for coordination of care (as documented) and isvu-ik-oirj counseling of patient and/or family. [facility] - Medical History Medical History: [...] Reviewed 06/16/22 @ 19:33 by Jackie Fraga, MYRON-) Mother Colon cancer Diabetes mellitus, type 2 [...] 03/01/22 15:44 KB (Rec: 03/01/22 15:45 KB [id number]) Distress Screening Distress score of 4 or [...] % (Auto) 69.5, Lymph % (Auto) 15.0, Kerr % (Auto) 12.1, Eos % (Auto) 2.6, Baso % (Auto) 0.8, Nucleat RBC Rel Count 0.2, Neut # (Auto) 4.1, Lymph # (Auto) 0.9 L, Kerr # (Auto) 0.7, Eos # (Auto) 0.1, [...] <Electronically signed by ERINN Shane> 11/07/22 1149 [facility] Work Phone: 1(838) 381-279505-23-2023 Hospital Discharge instructionsAmbulatory Orders* Initiate Home Health Time Frame: 1 Day, Location: Determined By Patient * Oncology Histology Time Frame: 10/03/22, Location: Determined By Patient * Oncology Histology Time Frame: 10/17/22, Location: Determined By Patient * Oncology Histology Time Frame: 10/10/22, Location: Determined By Patient [facility] Work Phone: 1(322) 512-613805-09-2023 Progress note Author Estela Varma [facility] September 19, 2022 10:02am Note Date/Time September 19, 2022 9:50am [facility] [place] [address] Hem/Onc Follow Up Note - OP Signed Patient: Kirill Echols MR#: [id number] : 1965 Acct:[id number] Age/Sex: 57 / M Type: REG RCR [...] Weight loss Follow Up Instructions: f/u wth [employer] in 6 weeks, cbc, cmp b12, folate, [...] concerns voiced at this time. HPI: 54-year-old -Bolivian gentleman history of smoking 40 pack years [...] overwhelming for recurrence. He lives alone in [place]. His children live in [place]. His left him 8 months ago and [...] and urinary tract. Otherwise, there is an Iddpjc-x-Kpoj on the left. The lungs demonstrate emphysematous [...] add on appointment after ER visit at [facility] on August 29, 2022 He went [...] for coordination of care (as documented) and gexg-iy-usds counseling of patient and/or family. [facility] - Medical History Medical History: [...] 03/01/22 15:44 KB (Rec: 03/01/22 15:45 KB [id number]) Distress Screening Distress score of 4 or [...] by Estela Varma II, DO> 09/19/22 [facility] [facility] Work Phone: 1(380) 849-437304-24-2023 Progress note Author Dixie Olivia [facility] September 04, 2022 12:17pm Note Date/Time September 04, 2022 12: 04pm [facility] [place] [address] Hem/Onc Follow Up Note - OP Signed Patient: Kirill Echols MR#: [id number] : 1965 Acct:[id number] Age/Sex: 57 / M Type: REG RCR Copies to: MD Rylan Vega MD~ Subjective Date/Time of Service: Date of Service: 09/04/2022 Time of Service: 11:56 Chief Complaint: Patient is here today for a follow up visit for small cell lung cancer. He went to [place] ER for chest pressure 08-27-[address] scan for review HPI: 54-year-old -[place]ol[place] gentleman history of smoking 40 pack years [...] overwhelming for recurrence. He lives alone in [place]. His children live in [place]. His left him 8 months ago and [...] and urinary tract. Otherwise, there is an Uafark-r-Zroy on the left. The lungs demonstrate emphysematous [...] He is considering moving back down to [facility] he is from. 02/27/22 he [...] observation. it was very reproducible. persists today / pain. dr irene has offered to perform [...] add on appointment after ER visit at [facility] on August 29, 2022 He went [...] Narrative: Residual and chronic left-sided chest complaints. [facility] - Medical History Medical History: [...] 03/01/22 15:44 KB (Rec: 03/01/22 15:45 KB [id number]) Distress Screening Distress score of 4 or [...] health is draining this...next follow up with [facility] next week. 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 3.) Follow up with Dr. Varma to [...] for coordination of care (as documented) and awht-fj-lkiv counseling of patient and/or family. Dictated By: Dixie Olivia APRN DD/ [id number] Signed By: <Electronically signed by ERINN Olivia> 09/04/22 1217 [facility] Work Phone: 1(687) 739-700702-09-2023 Progress note Author Dixie Olivia [facility] June 22, 2022 2:24pm Note Date/Time June 22, 2022 2 :16pm [facility] [place] [address] Hem/Onc Follow Up Note - OP Signed Patient: Kirill Echols MR#: [id number] : 1965 Acct:[id number] Age/Sex: 57 / M Type: REG RCR Copies to: MD Rylan Vega MD~ Subjective Date/Time of Service: Date of Service: 06/22/2022 Time of Service: 14:09 Chief Complaint: Patient is here for a 2 month follow up with, had chest tube placed 06/16/2022. No concerns voiced at this time. HPI: 54-year-old -[place]ol[place] gentleman history of smoking 40 pack years [...] overwhelming for recurrence. He lives alone in [place]. His children live in [place]. His left him 8 months ago and [...] and urinary tract. Otherwise, there is an Xgsxqi-e-Pkhv on the left. The lungs demonstrate emphysematous [...] He is considering moving back down to [facility] where he is from. 02/27/22 he [...] diaphoresis. No orthostasis or dizziness or palpitations. [facility] - Medical History Medical History: [...] 03/01/22 15:44 KB (Rec: 03/01/22 15:45 KB [id number]) Distress Screening Distress score of 4 or [...] health is draining this...next follow up with [facility] next week. - pleural fluid is negative [...] for coordination of care (as documented) and cfko-qn-mmwj counseling of patient and/or family. Dictated By: Dixie Olivia APRN DD/ 1409 Signed By: <Electronically signed by ERINN Olivia> 06/22/22 1424 [facility] Work Phone: 1([phone]) 155-919202-02-2023 Evaluation note* Encounter Date Diagnosis Assessment Notes [...] cell carcinoma of lung (ICD-10 - C34.90) imeem Other 01-18-2023 Evaluation note* Encounter Date Diagnosis Assessment Notes Treatment Notes Treatment Clinical Notes May, Small cell carcinoma of lung (ICD-10 - C34.90) Please let me know lung CT scan to review schedule thoracentesis if needed May, Chronic obstructive pulmonary disease, unspecified COPD type (ICD-10 - J44.9) May, Shortness of breath (ICD-10 - R06.02) May, Pleural effusion (ICD-10 - J90) imeem Other 12-02-2022 Progress note Author Estela Varma [facility] April 14, 2022 12:02pm Note Date/Time April 14, 2022 1 1:50am [facility] [place] [address] Hem/Onc Follow Up Note - OP Signed Patient: Kirill Echols MR#: [id number] : 1965 Acct:[id number] Age/Sex: 56 / M Type: REG RCR [...] concerns voiced at this time. HPI: 54-year-old -Bol[place] gentleman history of smoking 40 pack years [...] overwhelming for recurrence. He lives alone in [place]. His children live in [place]. His left him 8 months ago and [...] and urinary tract. Otherwise, there is an Tsmayk-g-Gear on the left. The lungs demonstrate emphysematous [...] He is considering moving back down to [facility] where he is from. 02/27/22 he [...] for coordination of care (as documented) and scqv-xn-sybg counseling of patient and/or family. [facility] - Medical History Medical History: [...] History (Last Reviewed 07/25/20 @ 13:25 by Brda Lockett PA-C) Mother Colon cancer Father Prostate [...] 03/01/22 15:44 KB (Rec: 03/01/22 15:45 KB [id number]) Distress Screening Distress score of 4 or [...] % (Auto) 71.4, Lymph % (Auto) 16.2, Kerr % (Auto) 8.6, Eos % (Auto) 2.9, Baso % (Auto) 0.9, Neut # (Auto) 4.5, Lymph # (Auto) 1.0, Kerr # (Auto) 0.5, Eos# (Auto) 0.2, Baso [...] by Estela Varma II, DO> 04/14/22 1202 [facility] Work Phone: [phone] 243-155410-17-2022 Progress note Author Estela Varma [facility] February 27, 2022 2:56pm Note Date/Time February 27, 2022 2 :51pm [facility] [place] [address] Hem/Onc Follow Up Note - OP Signed Patient: Kirill Echols MR#: [id number] : 1965 Acct:[id number] Age/Sex: 56 / M Type: REG RCR [...] for review. No concerns voiced. HPI: 54-year-old -Bolivian gentleman history of smoking 40 pack years [...] overwhelming for recurrence. He lives alone in [place]. His children live in [place]. His left him 8 months ago and [...] and urinary tract. Otherwise, there is an Rmavvc-t-Ixpg on the left. The lungs demonstrate emphysematous [...] He is considering moving back down to [facility] where he is from. 02/27/22 he [...] for coordination of care (as documented) and olyt-ni-apvx counseling of patient and/or family. [facility] - Medical History Medical History: [...] 09/14/21 14:56 KB (Rec: 09/14/21 14:59 KB [id number]) Distress Screening Distress score of 4 or more discussed Yes with patient? Distress screening follow up: Spoke with patient via phone. Patient is doing ok at this time. Recently had a heart cath which was negative. He is happpy that his scans are good. Dr. Perez is working on getting him into [facility]. - Lab Results Diagram of Most [...] by Estela Varma II, DO> 02/27/22 1456 [facility] Work Phone: [phone] Evaluation note* Encounter Date Diagnosis Assessment Notes [...] Dr. Andrea to discuss plan of care. imeem Other 04-25-2022 Progress note Author Estela Varma [facility] September 05, 2021 6:32pm Note Date/Time September 05, 2021 12: 28pm [facility] [address] [address] Hem/Onc Follow Up Note - OP Signed Patient: Kirill Echols MR#: [id number] : 1965 Acct:[id number] Age/Sex: 56 / M Type: REG RCR [...] concerns voiced at this time. HPI: 54-year-old -Bol[place]ian gentleman history of smoking 40 pack years [...] overwhelming for recurrence. He lives alone in [place]. His children live in [place]. His left him 8 months ago and [...] and urinary tract. Otherwise, there is an Rgeraa-r-Ecbr on the left. The lungs demonstrate emphysematous [...] He is considering moving back down to [facility] where he is from. - Physical [...] for coordination of care (as documented) and mrpl-wj-ruqs counseling of patient and/or family. [facility] - Medical History Medical History: [...] 02/02/21 13:22 KB (Rec: 02/02/21 13:23 KB [id number]) Distress Screening Distress score of 4 or [...] % (Auto) 69.0, Lymph % (Auto) 18.2, Kerr % (Auto) 7.9, Eos % (Auto) 4.2, Baso % (Auto) 0.7, Neut # (Auto) 3.5, Lymph # (Auto) 0.9 L, Kerr # (Auto) 0.4, Eos # (Auto) 0.2, [...] by Estela Varma II, DO> 09/05/21 1832 [facility] Work Phone: [phone]) 338-112804-11-2022 Progress note Author Estela Varma [facility] August 22, 2021 3:19pm Note Date/Time August 22, 2021 2:5 3pm [facility] [place] [address] Hem/Onc Follow Up Note - OP Signed Patient: Kirill Echols MR#: [id number] : 1965 Acct:[id number] Age/Sex: 56 / M Type: REG RCR [...] been having shortness of breath HPI: 54-year-old -Bol[place]ian gentleman history of smoking 40 pack years [...] overwhelming for recurrence. He lives alone in [place]. His children live in [place]. His left him 8 months ago and [...] for coordination of care (as documented) and cevw-si-llth counseling of patient and/or family. [facility] - Medical History Medical History: [...] 02/02/21 13:22 KB (Rec: 02/02/21 13:23 KB [id number]) Distress Screening Distress score of 4 or [...] % (Auto) 62.5, Lymph % (Auto) 20.1, Kerr % (Auto) 11.9, Eos % (Auto) 4.8, Baso % (Auto) 0.7, Neut # (Auto) 3.0, Lymph # (Auto) 1.0, Kerr # (Auto) 0.6, Eos # (Auto) 0.2, [...] signed by Estela Varma II, DO> 08/22/21 1513 [facility] Work Phone: 1([phone]) [phone] Progress note Author George Ash [facility] April 05, 2021 12:34pm Note Date/Time April 05, 2021 12:28pm [facility] [place] [address] Hem/Onc Follow Up Note - OP Signed Patient: Kirill Echols MR#: [id number] : 1965 Acct:[id number] Age/Sex: 55 / M Type: REG RCR [...] seen cardiology and was evaluated in [place] including a stress test. Nothing ever came [...] diaphoresis. No orthostasis or dizziness or palpitations. [facility] - Medical History Medical History: Medical [...] History (Last Reviewed 08/04/20 @ 10:40 by Soocrro Frias RN) H/O vasectomy H/O wrist surgery [...] 02/02/21 13:22 KB (Rec: 02/02/21 13:23 KB [id number]) Distress Screening Distress score of 4 or [...] % (Auto) 74.7, Lymph % (Auto) 11.7, Kerr % (Auto) 10.3, Eos % (Auto) 2.5, Baso % (Auto) 0.8, Neut # (Auto) 6.1, Lymph # (Auto) 1.0, Kerr # (Auto) 0.9H, Eos # (Auto) 0.2, [...] extensive work-up in the past in [place] including stress test. He has seen cardiology. [...] for coordination of care (as documented) and eflq-kk-wjao counseling of patient and/or family. Dictated By: George Ash MD DD/ 1227 Signed By: <Electronically signed by MD George Ash> 04/05/21 1234 [facility] Work Phone: [phone]) [phone] Progress note Author George Ash [facility] February 08, 2021 11:42am Note Date/Time February 08, 2021 11:41am [facility] [place] [address] Hem/Onc Follow Up Note - OP Signed Patient: Kirill Echols MR#: [id number] : 1965 Acct:[id number] Age/Sex: 55 / M Type: REG RCR [...] & no additional complaints except as documented [facility] - Medical History Medical History: [...] for coordination of care (as documented) and mnbq-sk-bgqx counseling of patient and/or family. Dictated By: George Ash MD DD/ 1140 Signed By: <Electronically signed by MD George Ash> 02/08/21 1142 [facility] Work Phone: [phone] 460-359009-21-2021 Progress note Author George Ash [facility] February 01, 2021 11:20am Note Date/Time February 01, 2021 11:19am [facility] [place] [id number] Hem/Onc Follow Up Note - OP Signed Patient: Kirill Echols MR#: [id number] : 1965 Acct:[id number] Age/Sex: 55 / M Type: REG RCR Copies to: MD Rylan Vega MD~ Subjective Date/Time of Service: Date of Service: 02/01/2021 Time of Service: 11:16 Chief Complaint: Patient is here today d/t pain and numbness left side of chest radiates to back. He has been to [facility] and [facility], He went [...] % (Auto) 76.8, Lymph % (Auto) 13.5, Kerr % (Auto) 7.5, Eos % (Auto) 1.4, Baso % (Auto) 0.8, Neut # (Auto) 5.1, Lymph # (Auto) 0.9 L, Kerr # (Auto) 0.5, Eos # (Auto) 0.1, [...] for coordination of care (as documented) and isgy-yd-eyoe counseling of patient and/or family. Dictated By: George Ash MD DD/ 1116 Signed By: <Electronically signed by MD George Ash> 02/01/21 1120 [facility] Work Phone: 1([phone]) [phone] Progress note Author George Ash [facility] December 07, 2020 11:02am Note Date/Time December 07, 2020 10:4 0am [facility] [place] [address] Hem/Onc Follow Up Note - OP Signed Patient: Kirill Echols MR#: [id number] : 1965 Acct:[id number] Age/Sex: 55 / M Type: REG RCR [...] with RIGHT supraclavicular region. These may be small business representative of metastatic lymph nodes. There is [...] & no additional complaints except as documented [facility] - Medical History Medical History: [...] % (Auto) 71.8, Lymph % (Auto) 12.7, Kerr % (Auto) 10.8, Eos % (Auto)3.9, Baso % (Auto) 0.8, Neut # (Auto) 4.8, Lymph # (Auto) 0.9 L, Kerr # (Auto) 0.7, Eos # (Auto) 0.3, [...] for coordination of care (as documented) and ncfn-ws-jvoc counseling of patient and/or family. Dictated By: George Ash MD DD/ 1039 Signed By: <Electronically signed by MD George Ash> 12/07/20 1102 [facility] Work Phone: 1([phone]) 374-544304-29-2021 Progress note Author Santhosh Chan [facility] September 09, 2020 11:30am Note Date/Time September 09, 2020 11: 21am [facility] [place] [address] Hem/Onc Follow Up Note - OP Signed Patient: Kirill Echols MR#: [id number] : 1965 Acct:[id number] Age/Sex: 55 / M Type: REG RCR [...] for coordination of care (as documented) and pctq-tw-vbei counseling of patient and/or family. Dictated By: Santhosh Chan MD DD/ 1118 Signed By: <Electronically signed by Santhosh Chan MD> 09/09/20 1130 [facility] Work Phone: 1([phone]) 264-102304-22-2021 Progress note Author Santhosh Chan [facility] September 02, 2020 11:55am Note Date/Time September 02, 2020 11: 53am [facility] [place] [address] Hem/Onc Follow Up Note - OP Signed Patient: Kirill Echols MR#: [id number] : 1965 Acct:[id number] Age/Sex: 55 / M Type: REG RCR [...] for coordination of care (as documented) and nuyt-gh-ivbb counseling of patient and/or family. Dictated By: Santhosh Chan MD DD/ 50 Signed By: <Electronically signed by Santhosh Chan MD> 09/02/20 1155 [facility] Work Phone: [phone] Progress note Author Santhosh Chan [facility] July 06, 2020 1:19pm Note Date/Time July 06, 2020 1:17pm [facility] [place] [id number] Hem/Onc Follow Up Note - OP Signed Patient: Kirill Echols MR#: [id number] : 1965 Acct:[id number] Age/Sex: 55 / M Type: REG RCR [...] & no additional complaints except as documented [facility] - Medical History Medical History: [...] % (Auto) 65.3, Lymph % (Auto) 17.0, Kerr % (Auto) 13.4, Eos % (Auto) 3.8, Baso % (Auto) 0.5, Neut # (Auto) 2.9, Lymph # (Auto) 0.7 L, Kerr # (Auto) 0.6, Eos # (Auto) 0.2, [...] of transitioning her practice to [facility]. (4) Anxiety - Time with Patient Time Spent with Patient (Follow Up Visit): 25 minutes, 35 minutes Coordination of Care & Counseling Time: Greater than 50% of time spent with patient was for coordination of care (as documented) and mewe-ir-qhex counseling of patient and/or family. Dictated By: Santhosh Chan MD DD/ 131 Signed By: <Electronically signed by Santhosh Chan MD> 07/06/20 1319 [facility] Work Phone: 1([phone]) 747-770402-02-2021 Progress note Author Santhosh Chan [facility] June 15, 2020 4:23pm Note Date/Time June 15, 2020 3 :28pm [facility] [place] [address] Hem/Onc Follow Up Note - OP Signed Patient: Kirill Echols MR#: [id number] : 1965 Acct:[id number] Age/Sex: 55 / M Type: REG RCR [...] 06/15/20] oxycodone [Roxicodone] 10 mg PO Q6H 10/15/20 [History Confirmed 06/15/20] albuterol sulfate 2 inh [...] % (Auto) 57.8, Lymph % (Auto) 19.4, Kerr % (Auto) 16.6, Eos % (Auto) 5.5, Baso % (Auto) 0.7, Neut # (Auto) 2.1, Lymph # (Auto) 0.7 L, Kerr # (Auto) 0.6, Eos # (Auto) 0.2, [...] of transitioning her practice to [facility]. -OARRS reviewed, no concern. Refill prescription of 2 weeks of oxycodone IR 10 mg (down from 15 mg)x56 provided today (taken 6-hour as needed). (3) Anxiety - Time with Patient Time Spent with Patient (Follow Up Visit): 35 minutes Coordination of Care & Counseling Time: Greater than 50% of time spent with patient was for coordination of care (as documented) and gbpd-tz-hpai counseling of patient and/or family. Dictated By: Santhosh Chan MD DD/ 1528 Signed By: <Electronically signed by Santhosh Chan MD> 06/15/20 5988 [facility] Work Phone: [phone] Progress note Author George Ash [facility] April 06, 2020 3:03pm Note Date/Time April 06, 2020 3:00pm [facility] [place] [address] Hem/Onc Follow Up Note - OP Signed Patient: Kirill Echols MR#: [id number] : 1965 Acct:[id number] Age/Sex: 54 / M Type: REG RCR [...] PET scan. Patient: Kirill Echols MR#: [id number] : 1965 Acct:[id number] Age/Sex: 54 / M ADM Date: 0 Loc: XT Room: Type: [facility] RCR Attending Dr: George Ash MD Ordering Provider: George Ash MD Date of Service: 03/23/20 CT/CT chest w con: restaging,C34.90 ([id number]) CT/CT abdomen pelvis w con: restaging,C34.90 Copies [...] proximal great vessels. Patient has a left-sided Sihyew-l-Zjoy catheter. There is continued ill-defined soft tissue [...] the findings below: Patient: Kirill Echols MR#: [id number] : 1965 Acct:[id number] Age/Sex: 54 / M ADM Date: 0 Loc: Room: Type: [facility] Attending Dr: Varghese Duval MD Ordering Provider: [...] with RIGHT supraclavicular region. These may be small business representative of metastatic lymph nodes. There is [...] Franklin Gomes M.D.10/31/2019 2:44 PM Dictation Location: [facility] The patient was seen by Dr. James and evaluated by Dr. Duval. 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 [facility] - Medical History Medical History: [...] for coordination of care (as documented) and srre-lj-tynq counseling of patient and/or family. Dictated By: George Ash MD DD/ 1459 Signed By: <Electronically signed by MD George Ash> 04/06/20 0276 [facility] Work Phone: [phone]) [phone] Progress note Author George Ash [facility] March 02, 2020 11:39am Note Date/Time March 02, 2020 1 1:38am [facility] [place] [address] Hem/Onc Follow Up Note - OP Signed Patient: Kirill Echols MR#: [id number] : 1965 Acct:[id number] Age/Sex: 54 / M Type: REG RCR [...] the findings below: Patient: Kirill Echols MR#: [id number] : 1965 Acct:[id number] Age/Sex: 54 / M ADM Date: 0 Loc: Room: Type: [facility] Attending Dr: Varghese Duval MD Ordering Provider: [...] with RIGHT supraclavicular region. These may be small business representative of metastatic lymph nodes. 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 [facility] - Medical History Medical History: Medical [...] (Last Reviewed 02/26/20 @ 00:00 by Karen Low, ARTHUR) Mother Colon cancer Father Prostate cancer Other [...] Neut % (Auto)79.5, Lymph % (Auto) 9.8, Kerr % (Auto) 8.4, Eos % (Auto) 1.7, Baso % (Auto) 0.6, Neut # (Auto) 6.1, Lymph # (Auto) 0.8 L, Kerr # (Auto) 0.6, Eos # (Auto) 0.1, [...] % (Auto) N/A, Lymph % (Auto) N/A, Kerr % (Auto) N/A, Eos % (Auto) N/A, Baso % (Auto) N/A, Neut # (Auto) N/A, Lymph # (Auto) N/A, Kerr # (Auto) N/A, Eos # (Auto) N/A, [...] for coordination of care (as documented) and rctq-br-bfsu counseling of patient and/or family. Dictated By: George Ash MD DD/ 1135 Signed By: <Electronically signed by MD George Ash> 03/02/20 1139 [facility] Work Phone: [phone] Progress note Author Leoncio Kowalski [facility] February 25, 2020 3:54pm Note Date/Time February 25, 2020 2 :49pm [facility] [place] [address] Rad Onc Follow Up Note - OP Signed Patient: Kirill Echols MR#: [id number] : 1965 Acct:[id number] Age/Sex: 54 / M Type: REG RCR Copies to: MD Rylan Vega MD James E Fanning, MD~ Subjective - Service Date/Time Date: 02/25/20 Time: 14:49 - Diagnosis 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 He has chronic [...] any. Dictated By: Leoncio Kowalski MD DD/ 1440 Signed By: <Electronically signed by Leoncio Kowalski MD> 02/25/20 8100 [facility] Work Phone: [phone]) [phone] Progress note Author George Ash [facility] February 10, 2020 1:23pm Note Date/Time February 10, 2020 1:20pm [facility] [place] [id number] Hem/Onc Follow Up Note - OP Signed Patient: Kirill Echols MR#: [id number] : 1965 Acct:[id number] Age/Sex: 54 / M Type: REG R Copies to: MD Rylan Vega MD~ Subjective [...] the findings below: Patient: Kirill Echols MR#: [id number] : 1965 Acct:[id number] Age/Sex: 54 / M ADM Date: 0 Loc: [facility]: [facility] Att[facility] Dr: Varghese Duval MD Ordering Provider: [...] with RIGHT supraclavicular region. These may be small business representative of metastatic lymph nodes. There is [...] Franklin Gomes M.D.10/31/2019 2:44 PM Dictation Location: [facility] The patient was seen by Dr. James and evaluated by Dr. Duval. 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 [facility] - Medical History Medical History: [...] % (Auto) 71.8, Lymph % (Auto) 16.0, Kerr % (Auto) 10.5, Eos % (Auto) 0.9, Baso % (Auto) 0.8, Neut # (Auto) 4.8, Lymph # (Auto) 1.1, Kerr # (Auto) 0.7, Eos # (Auto) 0.1, Baso # (Auto) 0.1, Nucleated RBC % (auto) 0.1 02/04/20 08:35: WBC 13.5 H, Corrected WBC 13.5 H, RBC 3.87 L, Hgb 12.3 L, Hct 38.1 L, MCV 98.6, MCH 31.7, MCHC 32.2 L, RDW 21.3 H, Plt Count 264, MPV 7.4, Neut % (Auto) 72.3, Lymph % (Auto) 7.8, Kerr % (Auto) 18.7, Eos % (Auto) 0.3, Baso % (Auto) 0.9, Neut # (Auto) 9.7 H, Lymph # (Auto) 1.1, Kerr # (Auto) 2.5 H,Eos # (Auto) 0.0, [...] for coordination of care (as documented) and iqck-fz-ebqq counseling of patient and/or family. Dictated By: George Ash MD DD/ 1319 Signed By: <Electronically signed by MD George Ash> 02/10/20 1322 [facility] Work Phone: [phone] Progress note Author George Ash [facility] January 20, 2020 11:30am Note Date/Time January 20, 2020 11:28am [facility] at [address] [address] Hem/Onc Follow Up Note - OP Signed Patient: Kirill Echols MR#: [id number] : 1965 Acct:[id number] Age/Sex: 54 / M Type: REG RCR [...] on pro which I did add today. [facility] is following him now for palliative pain control and this is clearly better. He is off of steroids. His synovitis and arthritis have resolved. [facility] - Medical History Medical History: [...] for coordination of care (as documented) and knlr-nr-laen counseling of patient and/or family. Dictated By: George Ash MD DD/ 1127 Signed By: <Electronically signed by MD George Ash> 01/20/20 1130 [facility] Work Phone: 1([phone]) 360-716108-18-2020 Progress note Author George Lalitkarissa [facility] December 30, 2019 10:35am Note Date/Time December 30, 2019 10 :01am [facility] at [address] [address] Hem/Onc Follow Up Note - OP Signed Patient: Kirill Echols MR#: [id number] : 1965 Acct:[id number] Age/Sex: 54 / M Type: REG RCR [...] I have instructed him to get some fkyy-tlw-wwpedar Prilosec for this. He has some type [...] the findings below: Patient: Kirill Echols MR#: [id number] : 1965 Acct:[id number] Age/Sex: 54 / M ADM Date: 0 Loc: Room: Type: [facility] Attending Dr: Varghese Duval MD Ordering Provider: [...] with RIGHT supraclavicular region. These may be small business representative of metastatic lymph nodes. There is [...] ofsupraclavicular node showed small cell neuroendocrine tumor. [facility] - Medical History Medical History: [...] % (Auto) N/A, Lymph % (Auto) N/A, Kerr % (Auto) N/A, Eos % (Auto) N/A, Baso % (Auto) N/A, Neut # (Auto) N/A, Lymph # (Auto) N/A, Kerr # (Auto) N/A, Eos # (Auto) N/A, [...] for coordination of care (as documented) and czrh-cw-mubm counseling of patient and/or family. Dictated By: George Ash MD DD/ 0959 Signed By: <Electronically signed by MD George Ash> 12/30/19 1034 [facility] Work Phone: [phone]) [phone] Progress note Author George Ash [facility] December 23, 2019 10:25am Note Date/Time December 23, 2019 10 :18am [facility] [place] [address] Hem/Onc Follow Up Note - OP Signed Patient: Kirill Echols MR#: [id number] : 1965 Acct:[id number] Age/Sex: 54 / M Type: REG RCR [...] the findings below: Patient: Kirill Echols MR#: [id number] : 1965 Acct:[id number] Age/Sex: 54 / M ADM Date: 0 Loc: Room: Type: [facility] Attending Dr: Varghese Duval MD Ordering Provider: [...] with RIGHT supraclavicular region. These may be small business representative of metastatic lymph nodes. There is [...] Franklin Gomes M.D.10/31/2019 2:44 PM Dictation Location: [facility] The patient was seen by Dr. James and evaluated by Dr. Duval. 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 [facility] - Medical History Medical History: [...] for coordination of care (as documented) and bpys-aw-uoyj counseling of patient and/or family. Dictated By: George Ash MD DD/ 1015 Signed By: <Electronically signed by MD George Ash> 12/23/19 1025 [facility] Work Phone: 1([phone]) 949-192308-04-2020 Progress note Author George Ash [facility] December 16, 2019 11:08am Note Date/Time December 16, 2019 11: 01am [facility] at [address] [address] Hem/Onc Follow Up Note - OP Signed Patient: Kirill Echols MR#: [id number] : 1965 Acct:[id number] Age/Sex: 54 / M Type: REG RCR [...] the findings below: Patient: Kirill Echols MR#: [id number] : 1965 Acct:[id number] Age/Sex: 54 / M ADM Date: 0 Loc: Room: Type: [facility] Attending Dr: Varghese Duval MD Ordering Provider: [...] with RIGHT supraclavicular region. These may be small business representative of metastatic lymph nodes. There is [...] Franklin Gomes M.D.10/31/2019 2:44 PM Dictation Location: [facility] The patient was seen by Dr. James and evaluated by Dr. Duval. 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 [facility] - Medical History Medical History: [...] Weight 2.01 - Vital Signs Vital Signs: 08/04/20 10:19 Temperature 98.2 F Pulse Rate [Right [...] Most Recent CBC and CMP 12/15/19 08:20 08 08:20 Labs - Last 7 Days 12/15/19 [...] % (Auto) 33.7, Lymph % (Auto) 41.5, Kerr % (Auto) 21.4, Eos % (Auto) 2.0, Baso % (Auto) 1.4, Neut # (Auto) 1.6 L, Lymph # (Auto) 1.9, Kerr # (Auto) 1.0 H, Eos # (Auto) [...] % (Auto) 21.1, Lymph % (Auto) 51.6, Kerr % (Auto) 24.2, Eos % (Auto) 1.9, Baso % (Auto) 1.2, Neut # (Auto) 0.5 L, Lymph # (Auto) 1.3, Kerr # (Auto) 0.6, Eos # (Auto) 0.0, [...] for coordination of care (as documented) and qqvh-sc-luvw counseling of patient and/or family. Dictated By: George Ash MD DD/ 1059 Signed By: <Electronically signed by MD George Ash> 12/16/19 1108 [facility] Work Phone: [phone] Progress note Author George Ash [facility] December 09, 2019 11:13am Note Date/Time December 09, 2019 11:1 1am [facility] at [address] [address] Hem/Onc Follow Up Note - OP Signed Patient: Kirill Echols MR#: [id number] : 1965 Acct:[id number] Age/Sex: 54 / M Type: REG RCR [...] the findings below: Patient: Kirill Echols MR#: [id number] : 1965 Acct:[id number] Age/Sex: 54 / M ADM Date: 0 Loc: Room: Type: REG I Attending Dr: Varghese Duval MD Ordering Provider: [...] with RIGHT supraclavicular region. These may be small business representative of metastatic lymph nodes. There is [...] Franklin Gomes M.D.10/31/2019 2:44 PM Dictation Location: [facility] The patient was seen by Dr. James and evaluated by Dr. Duval. 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 [facility] - Medical History Medical History: Medical [...] 7 Days 12/09/19 09:14: PHA Creatinine Clear 109.5968735037, Sodium 130 L, Potassium 4.3, Chloride 99, [...] at thattime as well. His dose of CAR PINCHER-16 is adjusted to 50% due to liver [...] for coordination of care (as documented) and nuif-uy-dekd counseling of patient and/or family. Dictated By: George Ash MD DD/ 1109 Signed By: <Electronically signed by MD George Ash> 12/09/19 1113 [facility] Work Phone: [phone] Progress note Author George Ash [facility] November 25, 2019 11:06am Note Date/Time November 25, 2019 11:0 1am [facility] [place] [address] Hem/Onc Follow Up Note - OP Signed Patient: Kirill Echols MR#: [id number] : 1965 Acct:[id number] Age/Sex: 54 / M [facility] Copies to: MD Rylan Vega [...] the findings below: Patient: Kirill Echols MR#: [id number] : 1965 Acct:[id number] Age/Sex: 54 / M ADM Date: 0 Loc: Room: Type: [facility] Attending Dr: Varghese Duval MD Ordering Provider: [...] with RIGHT supraclavicular region. These may be small business representative of metastatic lymph nodes. There is [...] He does have clubbing on physical exam. [facility] - Medical History Medical History: [...] % (Auto) 62.6, Lymph % (Auto) 28.7, Kerr % (Auto) 6.5, Eos % (Auto) 1.5, Baso % (Auto) 0.7, Neut # (Auto) 4.6, Lymph # (Auto) 2.1, Kerr # (Auto) 0.5, Eos # (Auto) 0.1, Baso # (Auto) 0.0, Nucleated RBC % (auto) 0.2 11/24/19 07:33: PHA Creatinine Clear 75.3551914329, Sodium 128 L, Potassium 3.7,Chloride 93 L, [...] Not detected 11/18/19 14:04: PHA Creatinine Clear 68.3377222305, Sodium 128 L, Potassium 4.8,Chloride 93 L, [...] Neut % (Auto)N/A, Lymph % (Auto) N/A, Kerr % (Auto) N/A, Eos % (Auto) N/A, Baso % (Auto) N/A,Neut # (Auto) N/A, Lymph # (Auto) N/A, Kerr # (Auto) N/A, Eos # (Auto) N/A, [...] for coordination of care (as documented) and pgpo-mk-qewk counseling of patient and/or family. 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 Chief Complaint: I am here for my radiation therapy treatments for lung cancer HPI: 54-year-old -Bolivian gentleman history of smoking 40 pack years [...] <Electronically signed by Leoncio Kowalski MD> 11/20/19 3405 [facility] Work Phone: [phone] Progress note Author George Ash [facility] November 20, 2019 11:12am Note Date/Time November 20, 2019 11:06 am [facility] [place] [address] Hem/Onc Follow Up Note - OP Signed Patient: Kirill Echols MR#: [id number] : 1965 Acct:[id number] Age/Sex: 54 / M Type: REG RCR [...] see Dr. Duval tomorrow for consideration of Yqlpyl-i-Ppnz. Chemotherapy education will be tomorrow November 20. [...] the findings below: Patient: Kirill Echols MR#: [id number] : 1965 Acct:[id number] Age/Sex: 54 / M ADM Date: 0 [...] with RIGHT supraclavicular region. These may be small business representative of metastatic lymph nodes. There is [...] He does have clubbing on physical exam. [facility] - Medical History Medical History: [...] 7 Days 11/18/19 14:04: PHA Creatinine Clear 68.4925414593, Sodium 128 L, Potassium 4.8,Chloride 93 L, [...] Neut % (Auto)N/A, Lymph % (Auto) N/A, Kerr % (Auto) N/A, Eos % (Auto) N/A, Baso % (Auto) N/A,Neut # (Auto) N/A, Lymph # (Auto) N/A, Kerr # (Auto) N/A, Eos # (Auto) N/A, [...] cancer The patient will be seen for Lnhlyx-g-Bqsm tomorrow. Head CT has been ordered and [...] for coordination of care (as documented) and ifft-ye-otto counseling of patient and/or family. Dictated By: George Ash MD DD/ 1104 Signed By: <Electronically signed by MD George Ash> 11/20/19 111 [facility] Work Phone: [phone] Consult note Author George Ash [facility] November 18, 2019 2:02pm Note Date/Time November 18, 2019 1:50p m [facility] [place] [address] Hem/Onc Consult Note - OP Signed Patient: Kirill Echols MR#: [id number] : 1965 Acct:[id number] Age/Sex: 54 / M Type: REG RCR [...] the findings below: Patient: Kirill Echols MR#: [id number] : 1965 Acct:[id number] Age/Sex: 54 / M ADM Date: 0 Loc: Room: Type: [facility] Attending Dr: Varghese Duval MD Ordering Provider: [...] with RIGHT supraclavicular region. These may be small business representative of metastatic lymph nodes. There is [...] Franklin Gomes M.D.10/31/2019 2:44 PM Dictation Location: [facility] The patient was seen by Dr. James and evaluated by Dr. Duval. 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 I was called by Dr. Duval today 11/18/2019 and arrange to see the patient immediately. The patient does have evidence of hyponatremia. It is somewhat mild. He does have clubbing on physical exam. [facility] - Medical History Medical History: [...] for immediate head CT. He will need Iddxfy-c-Ajgw placement and I will refer him to Dr. Duval for this. The patient has fairly limited disease in the chest and mediastinum and may very well be a candidate for combined modality therapy with chemotherapy and radiation. I will refer himto radiation oncology here at [facility]. We will recommend to him immediate chemotherapy [...] for coordination of care (as documented) and yndh-ui-eppg counseling of patient and/or family. Dictated By: George Ash MD DD/ 1349 Signed By: <Electronically signed by MD George Ash> 11/18/19 1402 [facility] Work Phone: Evaluation noteNo assessment information available [facility] Work Phone: Evaluation note* Diagnosis Onset Date Resolution Status Anemia due to chemotherapy a cute Anxiety acute Cancer-related pain acute Chest pain acute Diarrhea acute Edema acute Joint pain acute Neck pain acute Small cell lung cancer chron ic [facility] Work Phone: Evaluation note* Diagnosis Onset Date Resolution Status Anemia due to chemotherapy a cute Anxiety acute Cancer-related pain acute Chest pain acute Diarrhea acute Edema acute Joint pain acute Neck pain acute Small cell lung cancer chron ic Chest pain acute [facility] Work Phone: Evaluation note* Diagnosis Onset Date Resolution Status Chest pain acute Small cell lung cancer acute Anemia due to chemotherapy a cute Anxiety acute Cancer-related pain acute Chest pain acute Diarrhea acute Edema acute Joint pain acute Neck pain acute Small cell lung cancer [facility] Work Phone: Evaluation note* Diagnosis Onset Date Resolution Status Chest pain acute Small cell lung cancer acute Anemia due to chemotherapy a cute Anxiety acute Cancer-related pain acute Chest pain acute Diarrhea acute Edema acute Joint pain acute Neck pain acute Small cell lung cancer chron ic Small cell lung cancer acute [facility] Work Phone: Evaluation note* Diagnosis Onset [...] Diarrhea resolved Edema resolved Neck pain resolved [facility] Work Phone: Evaluation note* Diagnosis Onset Date Resolution Status Cancer-related pain acute Chronic hyponatremia acute Joint pain acute Shortness of breath acute Weight loss acute Small cell lung cancer chron ic Anxiety resolved Chest pain resolved Diarrhea resolved Edema resolved Neck pain resolved [facility] Work Phone: Evaluation note* Diagnosis Onset Date Resolution Status Cancer-related pain acute Chronic hyponatremia acute Joint pain acute Shortness of breath acute Weight loss acute Small cell lung cancer chron ic Anxiety resolved Chest pain resolved Diarrhea resolved Edema resolved Neck pain resolved Small cell lung cancer chron [facility] Work Phone: History and physical note Author Tez Irene [facility] April 10, 2022 3:12pm Note Date/Time April 10, 2022 3:12pm [facility] [address] [place] [address] Hospitalist H&P Signed Patient: Kirill Echols MR#: [id number] : 1965 Acct:[id number] Age/Sex: 56 / M Adm Date: 2 Loc: 3T Room: [address] [place] [address] Type: ADM INOo Attending Dr: Tez Irene [...] I will rediscuss this with the radiologist. Alethall observe the patient in the hospital overnight. [...] right hand Pancreatitis Anxiety disorder and depression [facility] for [facility]?: Yes Medical History Anemia [...] % (Auto) 14.2 % (.) 04/10/22 10:20 Kerr % (Auto) 9.9 % (.) 04/10/22 10:20 Eos % (Auto) 1.5 % (.) 04/10/22 10:20 Baso % (Auto) 1.0 % (.) 04/10/22 10:20 Neut # (Auto) 4.5 x10E3/uL (1.8-7.7) 04/10/22 10:20 Lymph # (Auto) 0.9 x10E3/uL (1.00-4.8) L 04/10/22 10:20 Kerr # (Auto) 0.6 x10E3/uL (0.0-0.8) 04/10/22 10:20 [...] (3.5-5.1) 04/10/22 10:20 Chloride 95 mmol/L (95-114) 11/28/22 10:20 Carbon Dioxide 23.4 mmol/L (22.0-30.0) 04/10/22 [...] <Electronically signed by Tez Irene MD> 04/10/22 151 [facility] Work Phone: History general Narrative - Reported* Type Description Date Medical History COPD Medical History anxiety Medical History HTN Medical History Lung CA Surgical History Vasectomy Surgical History Right wrist surgery 2005 Surgical History Hernia repair Hospitalization History Related to [facility] Other History general Narrative - Reported* Type Description Date Medical History COPD Medical History anxiety Medical History HTN Medical History Lung CA, small cell remission Surgical History Vasectomy Surgical History Right wrist surgery 2005 Surgical History Hernia repair Hospitalization History Related to [facility] [employer] Other Hospital Discharge instructionsAmbulatory Orders* Initiate Home Health Time Frame: 1 Day, Location: Determined By Patient [facility] Work Phone: Hospital Discharge instructionsAmbulatory Orders* Initiate Home Health Time Frame: 1 Day, Location: Determined By Patient * Oncology Histology Time Frame: 10/03/22, Location: Determined By Patient * Oncology Histology Time Frame: 10/17/22, Location: Determined By Patient * Oncology Histology Time Frame: 10/10/22, Location: Determined By Patient [facility] Work Phone: Progress note Author Estela Varma [facility] February 27, 2022 2:56pm Note Date/Time February 27, 2022 2 :51pm [facility] [place] [address] Hem/Onc Follow Up Note - OP Signed Patient: Kirill Echols MR#: [id number] : 1965 Acct:[id number] Age/Sex: 56 / M Type: REG RCR [...] for review. No concerns voiced. HPI: 54-year-old -Boliv[place] gentleman history of smoking 40 pack years [...] overwhelming for recurrence. He lives alone in [place]. His children live in [place]. His left him 8 months ago and [...] and urinary tract. Otherwise, there is an Dttsuw-e-Ycsv on the left. The lungs demonstrate emphysematous [...] He is considering moving back down to [facility] where he is from. 02/27/22 he [...] for coordination of care (as documented) and xrwg-fu-bias counseling of patient and/or family. [facility] - Medical History Medical History: [...] 09/14/21 14:56 KB (Rec: 09/14/21 14:59 KB [id number]) Distress Screening Distress score of 4 or more discussed Yes with patient? Distress screening follow up: Spoke with patient via phone. Patient is doing ok at this time. Recently had a heart cath which was negative. He is happpy that his scans are good. Dr. Perez is working on getting him into [facility]. - Lab Results Diagram of Most [...] by Estela Varma II, DO> 02/27/22 1456 [facility] Work Phone: Progress note Author Estela Varma [facility] April 14, 2022 12:02pm Note Date/Time April 14, 2022 1 1:50am [facility] at [address] [address] Hem/Onc Follow Up Note - OP Signed Patient: Kirill Echols MR#: [id number] : 1965 Acct:[id number] Age/Sex: 56 / M Type: REG RCR [...] concerns voiced at this time. HPI: 54-year-old -Boliv[place] gentleman history of smoking 40 pack years [...] overwhelming for recurrence. He lives alone in [place]. His children live in [place]. His left him 8 months ago and [...] and urinary tract. Otherwise, there is an Tlfbuu-n-Pbxs on the left. The lungs demonstrate emphysematous [...] He is considering moving back down to [facility] where he is from. 02/27/22 he [...] for coordination of care (as documented) and ugqv-cd-dtby counseling of patient and/or family. [facility] - Medical History Medical History: [...] 03/01/22 15:44 KB (Rec: 03/01/22 15:45 KB [id number]) Distress Screening Distress score of 4 or [...] % (Auto) 71.4, Lymph % (Auto) 16.2, Kerr % (Auto) 8.6, Eos % (Auto) 2.9, Baso % (Auto) 0.9, Neut # (Auto) 4.5, Lymph # (Auto) 1.0, Kerr # (Auto) 0.5, Eos# (Auto) 0.2, Baso [...] by Estela Varma II, DO> 04/14/22 1202 [facility] Work Phone: Progress note Author [facility]ie [facility] June 22, 2022 2:24pm Note Date/Time June 22, 2022 2 :16pm [facility] [place] [address] Hem/Onc Follow Up Note - OP Signed Patient: Kirill Echols MR#: [id number] : 1965 Acct:[id number] Age/Sex: 57 / M Type: REG RCR Copies to: MD Rylan Vega MD~ Subjective Date/Time of Service: Date of Service: 06/22/2022 Time of Service: 14:09 Chief Complaint: Patient is here for a 2 month follow up with, had chest tube placed 06/16/2022. No concerns voiced at this time. HPI: 54-year-old -Bolivian gentleman history of smoking 40 pack years [...] overwhelming for recurrence. He lives alone in [place]. His children live in [place]. His left him 8 months ago and [...] and urinary tract. Otherwise, there is an Cxbape-x-Jvaw on the left. The lungs demonstrate emphysematous [...] He is considering moving back down to [facility] where he is from. 02/27/22 he [...] diaphoresis. No orthostasis or dizziness or palpitations. [facility] - Medical History Medical History: [...] 03/01/22 15:44 KB (Rec: 03/01/22 15:45 KB [id number]) Distress Screening Distress score of 4 or [...] for coordination of care (as documented) and sypw-eg-hawu counseling of patient and/or family. Dictated By: Dixie Olivia APRN DD/ 1409 Signed By: <Electronically signed by ERINN Olivia> 06/22/22 1424 [facility] Work Phone: Progress note Author Estela Varma [facility] September 19, 2022 10:02am Note Date/Time September 19, 2022 9:50am [facility] [place] [address] Hem/Onc Follow Up Note - OP Signed Patient: Kirill Echols MR#: [id number] : 1965 Acct:[id number] Age/Sex: 57 / M Type: REG RCR [...] Weight loss Follow Up Instructions: f/u wth [employer] in 6 weeks, cbc, cmp b12, folate, [...] concerns voiced at this time. HPI: 54-year-old -Bolivian gentleman history of smoking 40 pack years [...] overwhelming for recurrence. He lives alone in [place]. His children live in [place]. His left him 8 months ago and [...] and urinary tract. Otherwise, there is an Wukcyg-s-Gpec on the left. The lungs demonstrate emphysematous [...] add on appointment after ER visit at [facility] on August 29, 2022 He went [...] for coordination of care (as documented) and yxle-pq-imho counseling of patient and/or family. [facility] - Medical History Medical History: [...] 03/01/22 15:44 KB (Rec: 03/01/22 15:45 KB [id number]) Distress Screening Distress score of 4 or [...] DD/ Signed By: <Electronically signed by Estela Varma, II, DO> 09/19/22 1002 [facility] Work Phone: Progress note Author Estela Varma [facility] December 25, 2022 11:43am Note Date/Time December 25, 2022 11 :39am [facility] [place] [address] Hem/Onc Follow Up Note - OP Signed Patient: Kirill Echols MR#: [id number] : 1965 Acct:[id number] Age/Sex: 57 / M Type: REG RCR [...] today. No new concerns voiced. HPI: 54-year-old -Bolivian gentleman history of smoking 40 pack years [...] overwhelming for recurrence. He lives alone in [place]. His children live in [place]. His left him 8 months ago and [...] and urinary tract. Otherwise, there is an Otvjbo-j-Haqt on the left. The lungs demonstrate emphysematous [...] add on appointment after ER visit at [facility] on August 29, 2022 He went [...] for coordination of care (as documented) and mlsr-ls-nvqn counseling of patient and/or family. [facility] - Medical History Medical History: [...] 03/01/22 15:44 KB (Rec: 03/01/22 15:45 KB [id number]) Distress Screening Distress score of 4 or [...] % (Auto) 70.2, Lymph % (Auto) 15.7, Kerr % (Auto) 7.8, Eos % (Auto) 5.0, Baso % (Auto) 1.3, Nucleat RBC Rel Count 0.0, Neut # (Auto) 4.2, Lymph # (Auto) 0.9 L, Kerr # (Auto) 0.5, Eos # (Auto) 0.3, [...] by Estela Varma II, DO> 12/25/22 1143 [facility] Work Phone: Summary Purpose Family History No [...] section and content) DATE CREATED AUTHOR 10/30/2017 [facility] DATE CREATED AUTHOR AUTHOR'S ORGANIZ ATION 05/14/2018 [facility] DATE CREATED AUTHOR AUTHOR'S ORGANIZ ATION 03/05/2020 [facility] DATE CREATED AUTHOR AUTHOR'S ORGANIZ ATION 08/07/2020 Adelita Herrera [facility] DATE CREATED AUTHOR AUTHOR'S ORGANIZ ATION 08/20/2020 [facility] DATE CREATED AUTHOR AUTHOR'S ORGANIZ ATION 12/02/2021 [facility] DATE CREATED AUTHOR AUTHOR'S ORGANIZ ATION 03/04/2022 [facility] DATE CREATED AUTHOR AUTHOR'S ORGANIZ ATION 10/23/2022 [facility] DATE CREATED AUTHOR AUTHOR'S ORGANIZ ATION 09/14/2023 [facility] DATE CREATED AUTHOR AUTHOR'S ORGANIZ ATION 12/01/2023 [facility] DATE CREATED AUTHOR AUTHOR'S ORGANIZ ATION 12/27/2023 [facility] EPIC REASON FOR VISIT [...] vomiting, Being set up for time @ [facility] by Dr. AndreaRef: Dr Varma- Pleural [...] Varghese Duval MD Referring Provider Active Estela J Adamowicz II, DO Attending Provider Active Team Status: [...] Rylan Andrea MD Primary Care Provider Active Humberto Molina PA-C Emergency Provider Active Banana Ripening Room Supervisor Relationship Specialty Start Date End Date Rylan Andrea MD [address] [place] [address] PCP - General Family Medicine 10/16/22 Marilu Bonner NP [address] [place] [address] Nurse Practitioner Family Medicine 04/03/23 Nilsa Isidro NP [address] [place] [address] Nurse Practitioner Pulmonary Disease 04/03/23 Morenita Gomes, ARTHUR Registered Nurse Family Medicine 06/18/23 Sanjuana Van LSW Agency Development Manager Family Medicine 06/18/23 Banana Ripening Room Supervisor Relationship Specialty Start Date End Date Rylan Andrea MD [address] [place] [address] PCP - General Family Medicine 10/16/22 Marilu Bonner NP [address] [place] [address] Nurse Practitioner Family Medicine 04/03/23 Nilsa Isidro NP [address] [place] [address] Nurse Practitioner Pulmonary Disease 04/03/23 Morenita Gomes, ARTHUR Registered Nurse Family Medicine 06/18/23 Sanjuana Van LSW Agency Development Manager Family Medicine 06/18/23 FOR RECORDS PERTAINING [...] BE BASED ON THE PRIMARY CLINICAL RECORDS. [facility] [employer] [facility]. provides no warranty or guarantee of the accuracy or completeness of information in this document.
[2024-01-07] MEDS: ASPIRIN 81 MG TABLET.DR PO (14:47)
[2024-01-07] MEDS: SODIUM CHLORIDE 1,000 MG TABLET 1000 MG PO ×2 (14:47→21:28)
--- NOTE | 2024-01-07 14:50 | SWNOTE1 ---
SHAUNA met with pt to discuss dc needs. Pt lives at home by himself. Pt does not have much support in the area. His is in another stated, and he is not close to his kids. He has a friend or 2 he can ask for help. Last admission pt was discharged to [facility] in [place]. He voiced he would not send another human being to that place. He stated he only stayed for 3 days. Per patient he had to go get clothes as he was in the same clothes for 9 days. SHAUNA did ask if he had any services coming in to the home. He stated he has a business case analystmanaged care manager aide that comes in 1x a month thru his insurance. Pt was in pain at this time. SHAUNA to stop back in tomorrow to assist with discharge planning.
[2024-01-07] MEDS: HYOSCYAMINE SULFATE 0.125 MG TAB.SUBL SL (16:55)
[2024-01-07] MEDS: ALBUTEROL SULFATE 2.5 MG/3 ML VIAL NEB IH (17:14)
[2024-01-07] MEDS: ACETAMINOPHEN 325 MG TABLET 650 MG PO (19:35)
[2024-01-07] MEDS: QUETIAPINE FUMARATE 100 MG TABLET 200 MG PO (21:28)
[2024-01-08] VITALS (10 sets, daily range): BP systolic 100–131; BP diastolic 65–85; PULSE 94–110; TEMP 36.6–36.9; O2SAT 92–99
[2024-01-08] MEDS: ALBUTEROL SULFATE 2.5 MG/3 ML VIAL NEB IH ×4 (04:24→23:28)
[2024-01-08] MEDS: LEVOTHYROXINE SODIUM 100 MCG TABLET PO (05:57)
[2024-01-08] MEDS: SODIUM CHLORIDE 1,000 MG TABLET 1000 MG PO ×3 (05:57→21:05)
[2024-01-08 06:08] LABS: Basophils Absolute Auto 0.1 10^3/uL (0.0-0.1); Basophils Percent Auto 0.7 % (0.2-2.0); Eosinophils Absolute Auto 0.3 10^3/uL (0.0-0.7); Eosinophils Percent Auto 3.2 % (0.9-7.0); Hematocrit 29.6 % (42.0-54.0); Hemoglobin 9.8 g/dL (14.0-18.0); Immature Granulocytes Abs Auto 0.01 10^3/uL (0.00-0.03); Immature Granulocytes Pct Auto 0.1 % (0.0-0.5); Lymphocytes Absolute Auto 1.4 10^3/uL (1.2-3.8); Lymphocytes Percent Auto 14.7 % (20.5-60.0); Mean Corpuscular HGB Conc 33.1 g/dL (29.9-35.2); Mean Corpuscular Hemoglobin 31.4 pg (25.9-34.0); Mean Corpuscular Volume 94.9 fL (80.0-94.0); Mean Platelet Volume 8.9 fL (9.5-13.5); Monocytes Absolute Auto 0.9 10^3/uL (0.3-0.8); Monocytes Percent Auto 9.7 % (1.7-12.0); Neutrophils Absolute Auto 6.8 10^3/uL (1.4-6.5); Neutrophils Percent Auto 71.6 % (43.0-75.0); Platelet Count 330 10^3/uL (150-450); Red Blood Count 3.12 10^6/uL (4.70-6.10); Red Cell Distribution Width 17.3 % (11.0-15.0); White Blood Count 9.5 10^3/uL (4.0-11.0)
[2024-01-08 06:17] LABS: Anion Gap 14.1; BUN Creatinine Ratio 13.7; Calcium 8.9 mg/dL (8.5-10.1); Carbon Dioxide 23.9 mmol/L (21.0-32.0); Chloride 102 mmol/L (98-107); Estimated GFR (African America >60 (>=60); Estimated GFR (Non-African Ame 52 (>=60); Glucose 106 mg/dL (74-106); Magnesium 1.9 mg/dL (1.8-2.4); Sodium 136 mmol/L (136-145)
--- NOTE | 2024-01-08 07:00 | XR_ITS ---
The [address] [address] Patient Name: TONI GERBER MRN: [id number] date: 1965 Sex: M Assigned Patient Location: [place] Current Patient Location: [place] Accession/Order Number: [id number] Exam Date: 01/08/2024 06:10 Report Date: 01/08/2024 07:38 At the request of: GRACIA KNUTSON Procedure: XR acute abdomen series EXAMINATION: XR acute abdomen series HISTORY: constipation with possible SBO COMPARISON: 09/06/23 x-ray. 01/07/2024 CT exam FINDINGS: LUNGS: Right lung volume loss with patchy infiltrate and pleural thickening MEDIASTINUM: No abnormal widening. Left Port-A-Cath tip projects over the proximal superior vena cava BOWEL GAS PATTERN: Gaseous distention of small and large bowel loopsr small bowel loops measuring up to 4.6 cm. There is a paucity of air in the distal colon and rectum FREE AIR: None. CALCIFICATIONS: None significant. BONES: No fracture or visible bone lesion. OTHER: Negative. XR/XR acute abdomen series IMPRESSION: Indeterminate exam. Small bowel dilatation suggests a small bowel obstruction however moderate air is observed within the splenic flexure of the colon Interval resolution of the stool in the colon Electronically authenticated by: MARCE GOULD Date: 01/08/2024 07:38
--- NOTE | 2024-01-08 08:39 | P.DS_ITS ---
DS: Providers Provider Date of admission: 01/07/24 12:32 Primary care physician: DANNA QURESHI Consults: 01/07/24 Consult to Dietitian Routine Reason for consultation: weight loss unintentional DS: Diagnosis Discharge Diagnosis (1) Abdominal pain, generalized: (2) Constipation: Qualifiers: Constipation type: unspecified constipation type Qualified Code(s): K59.00 - Constipation, unspecified (3) Hypothyroidism: Qualifiers: Hypothyroidism type: unspecified Qualified Code(s): E03.9 - Hypothyroidism, unspecified (4) Insomnia: Qualifiers: Insomnia type: primary Qualified Code(s): F51.01 - Primary insomnia (5) Hyponatremia: (6) Malnutrition of moderate degree: DS: Summary Time Spent with Patient Time attestation: Total time spent providing and/or coordinating discharge services: Exam Constitutional Vital Signs, click to edit/add: Last Vital Signs Temp 98.4 F 01/08/24 07:48 Pulse 100 H 01/08/24 07:48 Resp 18 01/08/24 07:48 BP 131/85 01/08/24 07:48 Pulse Ox 92 L 01/08/24 07:48 O2 Del Method Room Air 01/08/24 07:48 DS: Data Data Completed and Pending Labs on day of discharge: Labs from last 24 hours 01/08/24 01/07/24 05:48 08:52 WBC 9.5 10.6 RBC 3.12 L 3.37 L Hgb 9.8 L 10.8 L Hct 29.6 L 32.3 L MCV 94.9 H 95.8 H MCH 31.4 32.0 MCHC 33.1 33.4 RDW 17.3 H 17.6 H Plt Count 330 322 MPV 8.9 L 8.8 L Neut % (Auto) 71.6 74.7 Lymph % (Auto) 14.7 L 13.1 L [place] % (Auto) 9.7 8.5 Eos % (Auto) 3.2 2.7 Baso % (Auto) 0.7 0.7 Neut # (Auto) 6.8 H 8.0 H Lymph # (Auto) 1.4 1.4 [place] # (Auto) 0.9 H 0.9 H Eos # (Auto) 0.3 0.3 Baso # (Auto) 0.1 0.1 Abs Immat Gran (auto) 0.01 0.03 Imm/Tot Granulo (auto) 0.1 0.3 PT 10.4 INR 0.98 Sodium 136 133 L Potassium 4.0 4.2 Chloride 102 98 Carbon Dioxide 23.9 23.9 Anion Gap 14.1 15.3 BUN 19.0 H 26.0 H Creatinine 1.39 H 1.41 H Est GFR ( Amer) >60 >60 Est GFR (Non-Af Amer) 52 L 52 L BUN/Creatinine Ratio 13.7 18.4 Glucose 106 105 Lactate 1.7 Calcium 8.9 9.4 Magnesium 1.9 2.3 Total Bilirubin 0.3 AST 14 L ALT 18 Alkaline Phosphatase 130 H Troponin I High Sens 4.6 Total Protein 7.7 Albumin 3.2 L Globulin 4.5 Albumin/Globulin Ratio 0.7 Discharge Plan Discharge Discharge Medications: No Action aspirin 81 mg tablet,delayed release (DR/EC) 81 mg PO QDAY fluticasone propion-salmeterol 250-50 mcg/dose blister with device 1 inh INHALATION Q12H cyanocobalamin (vitamin B-12) [Vitamin B-12] 1,000 mcg tablet 1,000 mcg PO .QD melatonin 3 mg tablet 3 mg PO QPM PRN (Reason: sleep) levothyroxine 100 mcg tablet 100 mcg PO DAILY quetiapine 100 mg tablet 100 mg PO DAILY Rx Instructions: 100mg in morning 200mg at night orally daily; sodium chloride 1,000 mg tablet,soluble 1,000 mg PO TID quetiapine [Seroquel] 100 mg tablet 200 mg PO .QHS Print Language: Peruvian
[2024-01-08] MEDS: ASPIRIN 81 MG TABLET.DR PO (08:43)
[2024-01-08] MEDS: LACTULOSE 10 GM/15 ML UD CUP PO ×2 (08:44→20:38)
[2024-01-08] MEDS: ACETAMINOPHEN 325 MG TABLET 650 MG PO ×2 (08:44→18:16)
[2024-01-08] MEDS: QUETIAPINE FUMARATE 100 MG TABLET PO (08:44)
[2024-01-08] MEDS: BUDESONIDE 0.5 MG/2 ML AMPULE NEB IH ×2 (09:59→23:28)
--- NOTE | 2024-01-08 10:30 | CM.NOTE ---
Rounds made with Dr. Carlisle, pt is now passing gas and has moved his bowels. Pt continues to have some abdominal pain, Dr. Carlisle will contact general surgery for consult. Dr. Carlisle will recheck pt this afternoon for possible discharge to home.
--- NOTE | 2024-01-08 11:40 | PM.PN ---
Progress Note: Subjective Subjective Interval history: Patient had several large bowel movements last night, has been thinner now. He denies n/v and states he is ready to eat. He has been passing gas. Gas like pain still sharp at times but better than yesterday. Exam Narrative Exam Narrative: General: Patient is alert, and oriented to person, place and time with normal affect, cachexia Skin: no visible rashes, or ulcers Head: atraumatic, acephalic Eyes: PERRLA, no nystagmus present, conjunctiva clear, no scleral icterus Ears: normal gross auditory acuity Neck: no masses palpated Heart: Normal rate and rhythm, no murmurs/rubs/gallops Lungs: no audible wheezes, crackles and normal breath sounds all lung rivas Abdomen: sluggish bowel sounds, no distension, No palpable masses, pain/guarding RLQ Musculoskeletal: muscle atrophy noted, ROM is limited due to being in hospital bed, no swelling bilateral lower extremities Neuro: CN II-X grossly intact Constitutional Vital Signs, click to edit/add: Last Vital Signs Temp 98.4 F 01/08/24 07:48 Pulse 100 H 01/08/24 07:48 Resp 18 01/08/24 07:48 BP 131/85 01/08/24 07:48 Pulse Ox 95 01/08/24 10:01 O2 Del Method Room Air 01/08/24 10:01 Progress Note: Objective Labs Labs: Short CBC 01/08/24 Range/Units 05:48 WBC 9.5 (4.0-11.0) 10^3/uL Hgb 9.8 L (14.0-18.0) g/dL Hct 29.6 L (42.0-54.0) % Plt Count 330 (150-450) 10^3/uL BMP 01/08/24 05:48 Sodium 136 Potassium 4.0 Chloride 102 Carbon Dioxide 23.9 BUN 19.0 H Creatinine 1.39 H Glucose 106 Calcium 8.9 Progress Note: A&P Assessment and Plan (1) Abdominal pain, generalized: Assessment and Plan: current treatment for constipation with lactulose and glycerin enema worked, still possible ileus with Xr with dilated bowel but improved stool burden. will give hyoscyamine for pain. advance diet to full liquid today. Dr. Wilcox general surgery to see tomorrow. Will benefit from outpatient colonoscopy. (2) Constipation: Assessment and Plan: improving. continue regimen Qualifiers: Constipation type: unspecified constipation type Qualified Code(s): K59.00 - Constipation, unspecified (3) Hypothyroidism: Assessment and Plan: continue levothyroxine Qualifiers: Hypothyroidism type: unspecified Qualified Code(s): E03.9 - Hypothyroidism, unspecified (4) Insomnia: Assessment and Plan: continue home meds Qualifiers: Insomnia type: primary Qualified Code(s): F51.01 - Primary insomnia (5) Hyponatremia: Assessment and Plan: chronic, monitor. continue supplement (6) Malnutrition of moderate degree: Assessment and Plan: started ensures BID, consult dietary. (7) H/O: lung cancer: Plan Patient is a full code compression device for DVT prophylaxis patient is observation status and will advance diet today, if tolerating and pain/BM's improved, most likely discharge tomorrow.
[2024-01-08] MEDS: ENSURE HP 237 ML LIQUID PO ×2 (12:18→20:38)
--- NOTE | 2024-01-08 13:35 | SWNOTE1 ---
No discharge today for pt. SW to review PT/OT notes once they are completed to see if pt needs any services.
[2024-01-08] MEDS: QUETIAPINE FUMARATE 100 MG TABLET 200 MG PO (21:05)
[2024-01-09] VITALS: BP 131/86; PULSE 106; TEMP 36.4; O2SAT 97
--- NOTE | 2024-01-09 | CONS_ITS ---
CONSULTATION ? CONSULTATION DATE: ??01/09/2024 ? REASON FOR CONSULTATION:? Possible small bowel obstruction versus ileus. ? HISTORY OF PRESENT ILLNESS:? Patient is a 58-year-old male with multiple medical problems, including recent treatment for lung cancer, hypothyroidism, COPD, who presented to the emergency room two days ago with abdominal pain, as well as constipation, poor appetite.? Workup in the emergency room revealed evidence of fecal impaction with large amount of stool in the rectum and distal sigmoid, and dilated loops of small bowel throughout, consistent with a possible ileus versus partial small bowel obstruction.? Patient does have a history of a small bowel obstruction in the past that was in August that required a several day admission with bowel rest and NG decompression with resolution.? Patient denies any previous abdominal operations.? Did have a colonoscopy approximately six years ago.? He was admitted and given enemas as well as some stool softeners.? He did have a large bowel movement yesterday with improvement in his symptoms.? Acute abdominal series still revealed a large amount of air throughout the colon and small bowel, as well as fluid within the small bowel.? He has had no further vomiting.? He was advanced to a full liquid diet yesterday afternoon, which he tolerated well.? Denies any abdominal pain.? Has had no nausea or vomiting.? Continues to have some bowel movements currently and feels hungry at this point. ? ALLERGIES:? Patient has allergies to Librium, lisinopril and sertraline. ? HOME MEDICATIONS:? Include baby aspirin, B12, melatonin, levothyroxine, Seroquel and inhalers. ? SOCIAL HISTORY:? He is a former smoker, does use cannabis, is currently , reports occasional alcohol use.? ? FAMILY HISTORY:? Noncontributory. ? REVIEW OF SYSTEMS:? Ten system review of systems is positive for some weight loss.? No headaches or seizures.? No sore throat or hoarseness.? No chest pain, palpitations or syncope.? No chronic cough, shortness of breath or hemoptysis.? He has had the abdominal pain and constipation, one small emesis.? No dysuria, frequency, urgency or hematuria.? No headaches, seizures or tremors.? No easy bruising or bleeding.? No heat or cold intolerance.? No polydipsia, polyphagia or polyuria. ? PHYSICAL EXAM:? VITAL SIGNS:? Patient is afebrile.? Blood pressure is 124/83.? Heart rate is 98 and regular.? Respiratory rate is 18.? O2 saturation is 93% on room air.? GENERAL:? In general, he is a thin male, in no acute distress.? HEENT:? Normocephalic, atraumatic.? Sclerae anicteric.? Conjunctiva are not injected.? Oral mucosa is moist without lesions.? NECK:? Supple.? No adenopathy, thyromegaly or JVD. LUNGS:? Reveal some decreased breath sounds at the bases, a few expiratory wheezes.? He does have a port in the left chest wall. ABDOMEN:? Soft.? There are normal active bowel sounds.? It is non-distended.? There is some chronic, mild, left lower quadrant tenderness to deep palpation with no peritoneal signs, no masses, no hepatosplenomegaly, no hernias appreciated, no CVA tenderness. SKIN:? Warm and dry without lesions, rashes or ulcers. NEURO EXAM:? Non-focal.? Non-lateralizing.? Patient is awake, alert, oriented with appropriate affect. ? LABORATORY EVALUATION:? Today revealed normal white count, anemia of 9.7/29.1, which is chronic.? Electrolytes are within normal limits.? BUN is 16 with a creatinine of 1.3, which is patient?s baseline. ? IMAGING:? CT scans as well as abdominal films were reviewed. ? ASSESSMENT:? A 58-year-old male with multiple medical problems including lung cancer, with evidence of fecal impaction and likely resolving ileus, which is now resolved after treatment of the fecal impaction, severe constipation.? ? RECOMMENDATIONS:? Would recommend advancing to a low residue diet.? If he tolerates this well, he can be discharged to home, but he is to call with any problems or questions. CC:? Rylan Andrea M.D.? YANI
[2024-01-09 04:34] VITALS: BP 113/76; PULSE 100; TEMP 36.4; O2SAT 96
[2024-01-09 05:05] VITALS: PULSE 98; O2SAT 96
[2024-01-09] MEDS: ALBUTEROL SULFATE 2.5 MG/3 ML VIAL NEB IH (05:05)
[2024-01-09] MEDS: SODIUM CHLORIDE 1,000 MG TABLET 1000 MG PO (05:38)
[2024-01-09] MEDS: LEVOTHYROXINE SODIUM 100 MCG TABLET PO (05:38)
[2024-01-09 05:59] LABS: Basophils Absolute Auto 0.1 10^3/uL (0.0-0.1); Basophils Percent Auto 0.5 % (0.2-2.0); Eosinophils Absolute Auto 0.3 10^3/uL (0.0-0.7); Eosinophils Percent Auto 2.6 % (0.9-7.0); Hematocrit 29.1 % (42.0-54.0); Hemoglobin 9.7 g/dL (14.0-18.0); Immature Granulocytes Abs Auto 0.02 10^3/uL (0.00-0.03); Immature Granulocytes Pct Auto 0.2 % (0.0-0.5); Lymphocytes Absolute Auto 1.4 10^3/uL (1.2-3.8); Lymphocytes Percent Auto 14.3 % (20.5-60.0); Mean Corpuscular HGB Conc 33.3 g/dL (29.9-35.2); Mean Corpuscular Hemoglobin 32.1 pg (25.9-34.0); Mean Corpuscular Volume 96.4 fL (80.0-94.0); Mean Platelet Volume 8.8 fL (9.5-13.5); Monocytes Absolute Auto 1.1 10^3/uL (0.3-0.8); Monocytes Percent Auto 10.7 % (1.7-12.0); Neutrophils Absolute Auto 7.1 10^3/uL (1.4-6.5); Neutrophils Percent Auto 71.7 % (43.0-75.0); Platelet Count 303 10^3/uL (150-450); Red Blood Count 3.02 10^6/uL (4.70-6.10); Red Cell Distribution Width 17.4 % (11.0-15.0); White Blood Count 9.9 10^3/uL (4.0-11.0)
[2024-01-09 06:16] LABS: Alanine Aminotransferase 14 U/L (16-63); Albumin Globulin Ratio 0.7; Albumin Level 2.8 g/dL (3.4-5.0); Alkaline Phosphatase 111 U/L (46-116); Anion Gap 12.3; Aspartate Amino Transferase 10 U/L (15-37); BUN Creatinine Ratio 12.6; Bilirubin Total 0.4 mg/dL (0.2-1.0); Calcium 8.9 mg/dL (8.5-10.1); Carbon Dioxide 24.5 mmol/L (21.0-32.0); Chloride 103 mmol/L (98-107); Estimated GFR (African America >60 (>=60); Estimated GFR (Non-African Ame 58 (>=60); Globulin 4.2 g/dL; Glucose 107 mg/dL (74-106); Potassium 3.8 mmol/L (3.5-5.1); Sodium 136 mmol/L (136-145)
[2024-01-09 08:07] VITALS: BP 128/83; PULSE 106; TEMP 36.6; O2SAT 93
--- NOTE | 2024-01-09 08:08 | P.DS_ITS ---
DS: Providers Provider Date of admission: 01/07/24 12:32 Primary care physician: DANNA QURESHI Consults: 01/07/24 Consult to Dietitian Routine Reason for consultation: weight loss unintentional 01/08/24 11:38 Consult to General Surgeon Routine Consulting Provider: Manpreet Wilcox Reason for consultation: Ileus Has provider been notified: Yes DS: Diagnosis Discharge Diagnosis (1) Abdominal pain, generalized: (2) Constipation: Qualifiers: Constipation type: unspecified constipation type Qualified Code(s): K59.00 - Constipation, unspecified (3) Hypothyroidism: Qualifiers: Hypothyroidism type: unspecified Qualified Code(s): E03.9 - Hypothyroidism, unspecified (4) Insomnia: Qualifiers: Insomnia type: primary Qualified Code(s): F51.01 - Primary insomnia (5) Hyponatremia: (6) Malnutrition of moderate degree: (7) H/O: lung cancer: DS: Summary Hospital Course Hospital Course: At the time of discharge patient is tolerating regular diet. He has had several bowel movements and is passing gas. He feel much improved. I have discussed with him the importance of continuing Ensure shakes and taking Miralax every other d ay to keep up with several BM's per week. He will follow up with his PCP and discuss referral for outpatient colonoscopy with Dr. Wilcox. Labs are stable at the time of discharge, he has remained afebrile. He is ready to go home. He may return to the ER with any worsening signs or symptoms. Status at Discharge Functional status at discharge: independent ambulation Overall status at discharge: patient is back to baseline Time Spent with Patient Time attestation: Total time spent providing and/or coordinating discharge services: Time spent: greater than 30 minutes Exam Narrative Exam Narrative: General: Patient is alert, and oriented to person, place and time with normal affect, proper hygiene Heart: Normal rate and rhythm, no murmurs/rubs/gallops Lungs: no audible wheezes, crackles and normal breath sounds all lung rivas Abdomen: Normal audible bowel sounds, no distension, No palpable masses, slight tenderness RLQ with no rebound or guarding. Musculoskeletal: no swelling bilateral lower extremities Neuro: CN II-X grossly intact, normal sensation upper and lower extremities Constitutional Vital Signs, click to edit/add: Last Vital Signs Temp 97.5 F L 01/09/24 04:34 Pulse 98 H 01/09/24 05:05 Resp 18 01/09/24 05:05 BP 113/76 01/09/24 04:34 Pulse Ox 96 01/09/24 05:05 O2 Del Method Room Air 01/09/24 05:05 DS: Data Data Completed and Pending Labs on day of discharge: Labs from last 24 hours 01/09/24 05:38 WBC 9.9 RBC 3.02 L Hgb 9.7 L Hct 29.1 L MCV 96.4 H MCH 32.1 MCHC 33.3 RDW 17.4 H Plt Count 303 MPV 8.8 L Neut % (Auto) 71.7 Lymph % (Auto) 14.3 L [place] % (Auto) 10.7 Eos % (Auto) 2.6 Baso % (Auto) 0.5 Neut # (Auto) 7.1 H Lymph # (Auto) 1.4 [place] # (Auto) 1.1 H Eos # (Auto) 0.3 Baso # (Auto) 0.1 Abs Immat Gran (auto) 0.02 Imm/Tot Granulo (auto) 0.2 Sodium 136 Potassium 3.8 Chloride 103 Carbon Dioxide 24.5 Anion Gap 12.3 BUN 16.0 Creatinine 1.27 Est GFR ( Amer) >60 Est GFR (Non-Af Amer) 58 L BUN/Creatinine Ratio 12.6 Glucose 107 H Calcium 8.9 Total Bilirubin 0.4 AST 10 L ALT 14 L Alkaline Phosphatase 111 Total Protein 7.0 Albumin 2.8 L Globulin 4.2 Albumin/Globulin Ratio 0.7 Discharge Plan Discharge Disposition: Home, Self-Care Discharge Medications: Continued aspirin 81 mg tablet,delayed release (DR/EC) 81 mg PO QDAY fluticasone propion-salmeterol 250-50 mcg/dose blister with device 1 inh INHALATION Q12H cyanocobalamin (vitamin B-12) [Vitamin B-12] 1,000 mcg tablet 1,000 mcg PO .QD melatonin 3 mg tablet 3 mg PO QPM PRN (Reason: sleep) levothyroxine 100 mcg tablet 100 mcg PO DAILY quetiapine 100 mg tablet 100 mg PO DAILY Rx Instructions: 100mg in morning 200mg at night orally daily; sodium chloride 1,000 mg tablet,soluble 1,000 mg PO TID quetiapine [Seroquel] 100 mg tablet 200 mg PO .QHS Activity: increase activity as tolerated Diet: advance to your usual diet Diet Detail: I recommend every other day Miralax, 1 cap full with breakfast. Print Language: Slovak Forms: Portal Instructions Follow Up Appointments: Jan 14 @ 2pm HYDRO STATION OPERATOR at Dr Sy office [phone]- discuss getting referral for outpatient colonoscopy.
[2024-01-09] MEDS: QUETIAPINE FUMARATE 100 MG TABLET PO (09:06)
[2024-01-09] MEDS: ENSURE HP 237 ML LIQUID PO (09:06)
[2024-01-09] MEDS: LACTULOSE 10 GM/15 ML UD CUP PO (09:06)
[2024-01-09] MEDS: ASPIRIN 81 MG TABLET.DR PO (09:06)
[2024-01-09 11:10] VITALS: BP 124/83; PULSE 106; TEMP 36.7; O2SAT 93
--- NOTE | 2024-01-09 11:39 | CM.NOTE ---
Rounds made with Dr. Carlisle, pt will discharge to home today. Stock Crane Operator discussed with pt regarding need for OT, PT, or HH services. Pt denies any discharge needs, pt verbalizes he drove himself to hospital.
--- NOTE | 2024-01-11 13:44 | CM.DCFOLLOWU ---
Person spoke with:patient How are you feeling? much better How is your pain? none Did you understand your discharge instructions? yes Do you have any questions about your discharge instructions? no Were you given any prescriptions at discharge? no Were you able to get your prescriptions filled?n/a Do you understand how to take your medications as ordered? yes Do you have any questions about your follow up appointment and do you plan to keep your follow up appointment? no questions, follow up reviewed Is there anything else that you would like to discuss? no Questions/Comments/Concerns/Other:N/A
== END 2024-01-09 13:14 | disposition home or self-care (01) ==
LOC: ER 11:36 → MS 14:03
PROVIDERS: Admitting Provider Family Medicine; Emergency Provider Emergency Medicine; PCP Family Medicine; Visit Provider Family Medicine
DX: K59.00 Constipation, unspecified (principal); R10.84 Generalized abdominal pain; E03.9 Hypothyroidism, unspecified; F51.01 Primary insomnia; E87.1 Hypo-osmolality and hyponatremia; E44.0 Moderate protein-calorie malnutrition; Z68.1 Body mass index [BMI] 19.9 or less, adult; R55 Syncope and collapse; J44.9 Chronic obstructive pulmonary disease, unspecified; Z85.118 Personal history of other malignant neoplasm of bronchus and lung; Z87.891 Personal history of nicotine dependence; Z79.890 Hormone replacement therapy; Z79.899 Other long term (current) drug therapy; F12.90 Cannabis use, unspecified, uncomplicated
CPT/HCPCS: 36415; 51798; 70450; 71045; 74022; 74176; 80048; 80053; 83605; 83735; 84484; 85025; 85610; 93005; 94640; 96361; 96374; 99285; 99406; G0378; J2270

== ENCOUNTER 2024-01-15 12:29 | Outpatient (OUT) | payer OTHER, MEDICARE, MEDICAID, SELFPAY ==
[2024-01-09 16:32] VITALS: BMI 19.0
== END 2024-01-15 12:30 | disposition home or self-care (01) ==
LOC: PST 12:30
PROVIDERS: PCP Family Medicine; Visit Provider Ophthalmology
DX: Z01.818 Encounter for other preprocedural examination (principal); H25.811 Combined forms of age-related cataract, right eye

== ENCOUNTER 2024-01-17 06:28 | Day surgery (SDC) | payer OTHER, MEDICARE, MEDICAID, SELFPAY ==
--- NOTE | 2024-01-17 | HP_ITS ---
PREOPERATIVE HISTORY AND PHYSICAL ? Date:? 01/16/2024 ? HISTORY:? The patient is a 58-year-old white male with complaints of declining vision out of his right eye.? This has been generalized over the last 2-3 years.? He states it is moderate in severity and makes it difficult for him to see road signs at a distance.? More notably, he has difficulty at night time while driving because of headlights creating glare and halos.? ? PAST OCULAR HISTORY / PAST MEDICAL HISTORY / SOCIAL HISTORY / MEDICATIONS / ALLERGIES TO MEDICATIONS / REVIEW OF SYSTEMS / PHYSICAL EXAMINATION:? Unchanged from previously dictated. ? ASSESSMENT AND PLAN:? Visually significant cataract, right eye.? After the risks, benefits, and alternatives as well as expectations were delivered to the patient, he elected to go forward with cataract removal.? He understands those risks to include but not limited to infection, bleeding, loss of vision or loss of the eye itself.? Secondly, he understands that postoperatively he is likely to require spectacle correction for her best visual acuity.? Finally, a complete ophthalmic exam was performed and there was not determined to be any other source of vision decline other than that of cataract.? ? After understanding all risks as well as expectations, he elected to go forward with the procedures as listed above and will be doing so in the near future. YANI
--- NOTE | 2024-01-17 | OP_ITS ---
OPERATION DATE: 01/17/2024 SURGEON: Wally Cristobal M.D. PREOPERATIVE DIAGNOSIS: Nuclear sclerotic cataract right eye. POSTOPERATIVE DIAGNOSIS: Nuclear sclerotic cataract right eye. PROCEDURE NAME: Cataract extraction with intraocular lens placement for the right eye. ANESTHESIA: Topical. ESTIMATED BLOOD LOSS: Zero. COMPLICATIONS: None. PROCEDURE: The patient was brought to the Operating Room in supine position. After proper identification, the right eye was prepped and draped in a sterile ophthalmic fashion. A paracentesis created at the 11 o'clock position. Approximately 1 cc of unpreserved Xylocaine was injected into the anterior chamber followed by Amvisc Plus. Using a 2.6 mm Keratome blade, a clear corneal incision was created at the 9 o'clock limbus. A cystotome was then used to begin a curvilinear capsulorrhexis that was continued for 360 degrees with the Utrata forceps. BSS on a 26 gauge cannula was injected beneath the anterior capsule to hydrodissect as well as hydrodelineate the lens. After ensuring mobility, phacoemulsification was performed in a [id number]-type fashion. After all nuclear material had been removed from the eye, IA was introduced and all residual cortical material was cleaned up. Additional Amvisc Plus was injected into the posterior bag and a lens model MX60, 22.0 diopters was injected and dialed into position. After ensuring centration, IA was reintroduced into the anterior chamber and all residual Amvisc Plus removed from the eye. BSS on a 30 gauge cannula was injected into the stroma of both the clear corneal incision as well as paracentesis to hydrate the wounds. Additional BSS was injected into the anterior chamber to pressurize the eye at approximately 20 to 22 mmHg by finger tension. 0.1 cc of antibiotic was injected into the anterior chamber. Weck-Lucille sponges were used to check the wounds to be watertight. One drop of apraclonidine and one drop of prednisolone acetate were placed into the eye and a shield was placed over top. The patient was sent to the postoperative area in satisfactory condition to follow up the following day for postoperative care. YANI
--- OUTSIDE RECORDS SUMMARY | 2024-01-17 06:32 | XMS_ITS | CCD ---
Author Organization [facility] CliniSyor Care Team Providers Care Tub Wash Operator Name Role Phone CUBA ESQUIVEL Unavailable Unavailable CUBA ESQUIVEL Unavailable Unavailable AHMED, IRFAN Referring Unavailable JOSAFATMEDMORGANAN Primary Care Unavailable Rylan Andrea Unavailable Unavailable Unavailable Salazar Anita Unavailable Rylan Andrea Primary Care Unavailable Dr. Lukas Oliveira Referring Unavailable Dr. Lukas Oliveira Attending Unavailable Estela Varma Referring Unavail able Rylan Andrea Primary Care Unavailable Dr. Lukas Oliveira Attending Unavailable Rylan Andrea Primary Care Unavailable Dr. Lukas Oliveira Referring Unavailable Dr. Lukas Oliveiar Attending Unavailable MD Rylan Andrea Primary Care Provider MD Varghese Duval Referring Provider [phone] DO Estela Varma II Attending Provider MD Rylan Andrea Primary Care Provider MD Varghese Duval Referring Provider [phone] DO Estela Varma II Attending Provider DO Kali Longo Emergency Provider MD Tez Irene Admit Provider MD Tez Irene Attending Provider MD Rylan Andrea Primary Care Provider [phone] DO Estela Varma II Other Provider [phone] MD Varghese Duavl Referring Provider DO Estela Varma II Attending Provider MD Varghese Duval Referring Provider [phone] Adamowicz II, DO Estela J Attending Provider MD Rachid Chase Attending Provider MD Varghese Duval Attending Provider Adamowicz II, DO Estela J Attending Provider MD Annette Guardado Other Provider MD Varghese Duval Referring Provider Rachid Chase Unavailable MD Rylan Andrea Primary Care Provider MD Varghese Duval Referring Provider Adamowicz II, DO Estela J Attending Provider YULY Isidro Attending Provider [phone] EMRE, DR CLAY Primary Care Unavailable ADAMOWICZ, ESTELA J Admitting Unavailable ADAMOWICZ, ESTELA J Attending Unavailable ADAMOWICZ, ESTELA J Consulting Unavailable ANDREA, DR CLAY Primary Care Unavailable ADAMOWICZ, ESTELA J Admitting Unavailable ADAMOWICZ, ESTELA J Attending Unavailable ADAMOWICZ, ESTELA J Consulting Unavailable ANDREA, DR CLAY Primary Care Unavailable ADAMOWICZ, ESTELA J Admitting Unavailable ADAMOWICZ, ESTELA J Attending Unavailable ADAMOWICZ, ESTELA J Consulting Unavailable ROSEDALE, DR MARCE Fernandez Consulting Unavailable NADERER, DR [...] Unavailable ANDREA, DR CLAY Primary Care Unavailable KARISHMAICZESTELA Attending Unavailable KARISHMAICZ, ESTELA Rosales Consulting Unavailable KARISHMAICZESTELA Admitting Unavailable ANDREA, DR CLAY Admitting Unavailable ZIEBER, DR JESSE Norton Consulting Unavailable ANDREA, DR CLAY Primary Care Unavailable ANDREA, DR CLAY Attending Unavailable ANDREA, DR CLAY Consulting Unavailable MD Rylan Andrea Primary Care Provider MD Varghese Duval Referring Provider [phone] Adamowicz II, DO Estela Rosales Attending Provider KIKO Molina Emergency Provider [phone] MD Varghese Duval Referring Provider [phone] Adamowicz II, DO Estela Rosales Attending Provider MD Varghese Duval Referring Provider [phone] Adamowicz II, DO Estela Rosales Attending Provider Rylan Andrea MD Primary Care Provider [phone] Rafa RUBBER CURER, Marilu Unavailable Sanna RUBBER CURER, Nilsa R Unavailable Eliseo GIBSON, Morenita Unavailable Carlota JIANG, Sanjuana Unavailable MD Rylan Andrea Primary Care Provider MD Varghese Duval Referring Provider [phone] Adamowicz II, DO Estela Rosales Attending Provider [phone] RYLAN ANDREA Referring Unavailable ANDREA, RYLAN A Primary Care Unavailable ANDREA, RYLAN A Referring Unavailable ANDREA, RYLAN A Primary Care Unavailable AndreaKatarinaRylan Primary Care Unavailable Blaineowicz II, Estela Rosales Admitting Unavaila ble Adamowicz II, Estela Rosales Attending Unavaila ble AbdiisoVarghese Referring Unavailable ANDREA RYLAN A Attending Unavailable WARCHOL, MARILU Attending Unavailable WARCHOL, MARILU Referring Unavailable WARCHOL, MARILU Attending Unavailable WARCHOL, MARILU Attending Unavailable FLORINDA MONK Attending Unavailable WARCHOL, MARILU Attending Unavailable WARCHOL, MARILU Attending Unavailable ANDREA, YRLAN A Attending Unavailable KAROL JAMES Attending Unavailable WARCHOL, MARILU Referring Unavailable MARILU BONNER Attending Unavailable Allergies Allergy Classification Reported Allergen(s) Allergy Type Date of Onset Reaction(s) Facility (4 sources) chlordiazePOXID E; Translations: [Librium] Drug Allergy Unknown [facility] Repository (19 sources) Lisinopril; Translations: [lisinopril] Drug Allergy 2 Unknown, Swelling of Lip/Tongue/Thro at [facility] (20 sources) Sertraline; Translations: [sertraline] Drug Allergy 2 Swelling of Lip/Tongue/Thro at [facility] (7 sources) chlordiazePOXID E; Translations: [chlordiazepoxi de] Drug Allergy [address] [facility] (1 source) Amino Acids Drug Allergy [facility] Repository (1 source) Sertraline Drug Allergy 2 [facility] Repository (4 sources) Lisinopril Allergy to substance 3 [facility] (1 source) Lisinopril Drug Allergy [address] [facility] Repository Medications Current Medications Medication Drug Class(es) [...] tab #100 RF zero given on 12/29 [id number] 200 actuat albuterol 0.09 mg/actuat metered dose [...] (Bisacodyl)) 10 mg Suppository Discontinued 10 MG NJ Q24H August 16, 2020 11:00pm September 01, [...] 9:51am docusate sodium 50 mg / sennosides, fpc 8.6 mg oral tablet (20 sources) Start: [...] 03, 2019 11:00pm December 01, 2019 12:23pm Mbbsfhzaluv-Qvmndtpni-Bspyim er (15 sources) Anticholinergic, Corticosteroid, beta2-Adrenergic Agonist Start: 07-26-2020 End: 08-17-2020 Ccytwubucau-Iompzbzaw-Nydqhd er (Trelegy Ellipta) 100-62.5-25 mcg Blister With Device Discontinued 1 INH INHALATION Daily July 25, 2020 11:00pm August 17, 2020 8:43am Start: 07-26-2020 End: 08-17-2020 Hdbkeovwalo-Gbjoezhog-Zwqmhc er (Trelegy Ellipta) 100-62.5-25 mcg Blister With [...] at the same time. 0 Active nystatin 146822 unt/ml oral suspension (15 sources) Polyene Antifungal [...] per Palliative or PCP polyethylene glycol 3350 50737 mg powder for oral solution (15 sources) [...] take 2 tablets by mouth at bedti tx Zolpidem Tartrate 5 MG (Schedule IV Drug) [...] 09-25-2022 Chronic Other aftercare (1 source) Other residential (current) drug therapy; Translations: [OTH LONGTERM CURRENT DRUG THERAPY] Onset: 3 Episodic Other aftercare (1 source) rn long term care (current) use of aspirin; Translations: [LONGTERM CURRENT USE OF ASPIRIN] Onset: 3 Episodic [...] ALT [Catalytic activity/Vol] 14 U/L Normal 7-[address] [facility] Comment on above: Performed By: #### C BC, MARILU, LIPASE, FE and TIBC, CEA, T4F, TSH3, YUSUF, [id number], CMP #### [facility] [address] [place] [address] [place] #### METH #### [facility] , Albumin [Mass/volume] in Ser um or Plasma by Bromocresol green (BCG) dye binding methoOrdered By: Estela Varma on 06-25-2023 Albumin BCG dye [Mass/Vol] 3.9 g/dL 3.5-5.[address] [facility] Alkaline phosphatase [Enzyma tic activity/volume] in Serum or PlasmaOrdered By: Estela Varma on 06-25-2023 ALP [Catalytic activity/Vol] 126 U/L High 34-[address] [facility] Comment on above: Performed By: #### C BC, MARILU, LIPASE, FE and TIBC, CEA, T4F, TSH3, YUSUF, [id number], CMP #### [facility] [address] [place] [address] [place] #### METH #### [facility] , Amylase [Enzymatic activity/ volume] in Serum or PlasmaOrdered By: Estela Varma on 06-25-2023 Amylase [Catalytic activity/Vol] 52 U/L Normal 29-[address] [facility] Comment on above: Performed By: #### C BC, MARILU, LIPASE, FE and TIBC, CEA, T4F, TSH3, YUSUF, [id number], CMP #### [facility] [address] [place] [address] #### METH #### [facility] , Aspartate aminotransferase [ Enzymatic activity/volume] in Serum or PlasmaOrdered By: Estela Varma on 06-25-2023 AST [Catalytic activity/Vol] 30 U/L Normal 13-[address] [facility] Comment on above: Performed By: #### C BC, MARILU, LIPASE, FE and TIBC, CEA, T4F, TSH3, YUSUF, [id number], CMP #### [facility] [address] [place] [address] #### METH #### [facility] , Automated basophil %Ordered By: Estela Varma on 06-25-2023 Basophils/100 WBC (Bld) 1.3 % Normal . [facility] Comment on above: Performed By: #### C BC, MARILU, LIPASE, FE and TIBC, CEA, T4F, TSH3, YUSUF, [id number], CMP #### [facility] [address] [place] [address] #### METH #### [facility] , Automated basophil countOrde red By: Estela Varma on 06-25-2023 Basophils (Bld) [#/Vol] 0.1 10*3/uL Normal 0.0-0.[address] [facility] Comment on above: Result Comment: PERF ORMED BY: [place] [address] PATHOLOGIST ACTIVITIES COORDINATOR CATY DELCID M.D. Performed By: #### C BC, MARILU, LIPASE, FE and TIBC, CEA, T4F, TSH3, YUSUF, [id number], CMP #### [facility] [address] [place] [address] #### METH #### [facility] , Automated blood monocyte cou ntOrdered By: Estela Varma on 06-25-2023 Monocytes (Bld) [#/Vol] 0.7 10*3/uL Normal 0.0-0.[address] [facility] Comment on above: Performed By: #### C BC, MARILU, LIPASE, FE and TIBC, CEA, T4F, TSH3, YUSUF, [id number], CMP #### [place] [address] [place] #### METH #### [facility] , Automated eosinophil %Ordere d By: Estela Varma on 06-25-2023 Eosinophils/100 WBC (Bld) 2.5 % Normal . [facility] Comment on above: Performed By: #### C BC, MARILU, LIPASE, FE and TIBC, CEA, T4F, TSH3, YUSUF, [id number], CMP #### [address] #### METH #### [facility] , Automated eosinophil countOr dered By: Estela Varma on 06-25-2023 Eosinophils (Bld) [#/Vol] 0.2 10*3/uL Normal 0.0-0.[address] [facility] Comment on above: Performed By: #### C BC, MARILU, LIPASE, FE and TIBC, CEA, T4F, TSH3, YUSUF, [id number], CMP #### [place] [address] [place] #### METH #### [facility] , Automated monocyte %Ordered By: Estela Varma on 06-25-2023 Monocytes/100 WBC (Bld) 8.7 % Normal . [facility] Comment on above: Performed By: #### C BC, MARILU, LIPASE, FE and TIBC, CEA, T4F, TSH3, YUSUF, [id number], CMP #### [facility] [address] [place] [address] [place] #### METH #### [facility] , Automated neutrophil %Ordere d By: Estela Varma on 06-25-2023 Neutrophils/100 WBC (Bld) 78.2 % Normal . [facility] Comment on above: Performed By: #### C BC, MARILU, LIPASE, FE and TIBC, CEA, T4F, TSH3, YUSUF, [id number], CMP #### [facility] [address] [place] [address] [place] #### METH #### [facility] , Bilirubin.total [Mass/volume ] in Serum or PlasmaOrdered By: Estela Varma on 06-25-2023 Bilirubin [Mass/Vol] 1.0 mg/dL Normal 0.3-1.0 [facility] Comment on above: Performed By: #### C BC, MARILU, LIPASE, FE and TIBC, CEA, T4F, TSH3, YUSUF, [id number], CMP #### [facility] [address] [place] [address] [place] #### METH #### [facility] , CARCINOEMBRYONIC ANTIGENon 0 06-25-2023 Interpretation and review of laboratory results Abnormal [facility] CBC W Auto Differential pane l (Bld)on 06-25-2023 Basophils (Bld) [#/Vol] 0.1 10*3/uL 0.0 - 0.2 10*3/uL [facility] Basophils/100 WBC Manual cnt (Syn fld) 1.3 % . [facility] Eosinophils (Bld) [#/Vol] 0.2 10*3/uL 0.0 - 0.45 10*3/uL [facility] Eosinophils/100 WBC Manual cnt (Syn fld) 2.5 % . [facility] Erythrocyte distribution width (RBC) [Ratio] 15.5 % High 12.0 - 14.8 % [facility] Hematocrit (Bld) [Volume fraction] 40.7 % 38.8 - 50.0 % [facility] Hemoglobin (Bld) [Mass/Vol] 13.7 g/dL 13.0 - 17.0 g/dL [facility] Interpretation and review of laboratory results Abnormal [facility] Lymphocytes (Bld) [#/Vol] 0.8 10*3/uL Low 1.00 - 4.8 10*3/uL [facility] Lymphocytes/100 WBC Manual cnt (Syn fld) 9.3 % . [facility] MCH (RBC) [Entitic mass] 32.9 pg 27.5 - 35.2 pg [facility] MCHC (RBC) [Mass/Vol] 33.7 g/dL 32.5 - 35.6 g/dL [facility] MCV (RBC) [Entitic vol] 97.6 fL 83.5 - 101 fL [facility] Monocytes (Bld) [#/Vol] 0.7 10*3/uL 0.0 - 0.8 10*3/uL [facility] Monocytes+Macrophages /100 WBC Manual cnt (Syn fld) 8.7 % . [facility] Neutrophils (Bld) [#/Vol] 6.5 10*3/uL 1.8 - 7.7 10*3/uL [facility] Neutrophils/100 WBC Manual cnt (Syn fld) 78.2 % . [facility] NRBC 0.2 /100{WBC} 0 - 0.5 /100{WBC} [facility] Platelet mean volume (Bld) [Entitic vol] 7.4 fL 6.6 - 10.1 fL [facility] Platelets (Bld) [#/Vol] 196 10*3/uL 150 - 450 10*3/uL [facility] RBC LM.HPF (Urine sed) [#/Area] 4.17 /[HPF] 3.90 - 5.60 [facility] WBC (Bld) [#/Vol] 8.4 10*3/uL 4.1 - 10.5 10*3/uL [facility] WBC LM.HPF (Urine sed) [#/Area] 8.4 10*3/uL 4.1 - 10.5 10*3/uL [facility] Calcium [Mass/volume] in Ser um or PlasmaOrdered By: Estela Varma on 06-25-2023 Calcium [Mass/Vol] 8.7 mg/dL Normal 8.6-10.3 [facility] Comment on above: Performed By: #### C BC, MARILU, LIPASE, FE and TIBC, CEA, T4F, TSH3, YUSUF, [id number], CMP #### [facility] [address] [place] [address] #### METH #### [facility] , Capillary blood glucose ledy urement by glucometer (mass/volume)Ordered By: Estela Varma on 06-25-2023 Glucose [Mass/Vol] 97 mg/dL Normal [facility] Comment on above: Random Glucose Refer ence Range is dependent on time and content of last meal. Glucose of more than 200 mg/dL in a nonstressed, ambulatory subject supports the diagnosis of Diabetes Mellitus. Result Comment: [place] om Glucose Reference Range is dependent on time and content of last meal. Glucose of more than 200 mg/dL in a nonstressed, ambulatory subject supports the diagnosis of Diabetes Mellitus. PERFORMED BY: [place] [address] PATHOLOGIST ACTIVITIES COORDINATOR CATY DELCID M.D. Performed By: #### C BC, MARILU, LIPASE, FE and TIBC, CEA, T4F, TSH3, YUSUF, [id number], CMP #### [address] #### METH #### [facility] , Carbon dioxide, total [Moles /volume] in Serum or PlasmaOrdered By: Estela Varma on 06-25-2023 CO2 [Moles/Vol] 23.2 mmol/L Normal 21.0-31.0 [facility] Comment on above: Performed By: #### C BC, MARILU, LIPASE, FE and TIBC, CEA, T4F, TSH3, YUSUF, [id number], CMP #### [place] [address] [place] #### METH #### [facility] , Chloride [Moles/volume] in S coral or PlasmaOrdered By: Estela Varma on 06-25-2023 Chloride [Moles/Vol] 96 mmol/L Low 98-107 [facility] Comment on above: Performed By: #### C BC, MARILU, LIPASE, FE and TIBC, CEA, T4F, TSH3, YUSUF, [id number], CMP #### [place] [address] [place] #### METH #### [facility] , Complete Blood Count Auto Di ffon 06-25-2023 Mean Corpuscular HGB Conc 33.7 g/dL Normal 32.5-35.6 [facility] Comment on above: Performed By: #### C BC, MARILU, LIPASE, FE and TIBC, CEA, T4F, TSH3, YUSUF, [id number], CMP #### [place] [address] [place] #### METH #### [facility] , NRBC% 0.2 /100{WBC} Normal 0-0.5 [facility] Comment on above: Performed By: #### C BC, MARILU, LIPASE, FE and TIBC, CEA, T4F, TSH3, YUSUF, [id number], CMP #### [place] [address] [place] #### METH #### [facility] , Comprehensive Metabolic Pane nicolas 06-25-2023 Albumin [Mass/Vol] 3.9 g/dL Normal 3.5-5.7 [facility] Comment on above: Performed By: #### C BC, MARILU, LIPASE, FE and TIBC, CEA, T4F, TSH3, YUSUF, [id number], CMP #### [place] [address] [place] #### METH #### [facility] , Creatinine Clr Calc Pharmacy 108.93 Normal [facility] Comment on above: Performed By: #### C BC, MARILU, LIPASE, FE and TIBC, CEA, T4F, TSH3, YUSUF, [id number], CMP #### [place] [address] [place] #### METH #### [facility] , GFR/1.73 sq M.predicted MDRD (S/P/Bld) [Vol rate/Area] mL/min/{1.73_m2} Normal [facility] Comment on above: Performed By: #### C BC, MARILU, LIPASE, FE and TIBC, CEA, T4F, TSH3, YUSUF, [id number], CMP #### [address] #### METH #### [facility] , Creatinine [Mass/volume] in Serum or PlasmaOrdered By: Estela Varma on 06-25-2023 Creatinine [Mass/Vol] 0.70 mg/dL Normal 0.70-1.30 [facility] Comment on above: Performed By: #### C BC, MARILU, LIPASE, FE and TIBC, CEA, T4F, TSH3, YUSUF, [id number], CMP #### [address] #### METH #### [facility] , Erythrocyte distribution wid th [Ratio] by Automated countOrdered By: Estela Varma on 06-25-2023 Erythrocyte distribution width (RBC) [Ratio] 15.5 % High 12.0-14.[address] [facility] Comment on above: Performed By: #### C BC, MARILU, LIPASE, FE and TIBC, CEA, T4F, TSH3, YUSUF, [id number], CMP #### [place] [address] [place] #### METH #### [facility] , Erythrocytes [#/volume] in B lood by Automated countOrdered By: Estela Varma on 06-25-2023 RBC (Bld) [#/Vol] 4.17 10*6/uL Normal 3.90-5.60 [facility] Comment on above: Performed By: #### C BC, MARILU, LIPASE, FE and TIBC, CEA, T4F, TSH3, YUSUF, [id number], CMP #### [place] [address] [place] #### METH #### [facility] , Ferritin [Mass/volume] in Se rum or PlasmaOrdered By: Estela Varma on 06-25-2023 Ferritin [Mass/Vol] 207.7 ng/mL Normal 23.9-336.2 [facility] Comment on above: Performed By: #### C BC, MARILU, LIPASE, FE and TIBC, CEA, T4F, TSH3, YUSUF, [id number], CMP #### [facility] [address] [place] [address] [place] #### METH #### [facility] , Folate [Mass/volume] in Seru m or PlasmaOrdered By: Estela Varma on 06-25-2023 Folate [Mass/Vol] 9.6 ng/mL >5.9 [facility] Comment on above: Folate reference ran ge: >5.9 ng/mlThe WHO technical consultation on folate and vitamin [id number] has determined that folate concentrations lessthan 4 ng/ml are considered deficient. GLUCOSE POCT GLUCOMETERSon 0 06-25-2023 Glucose [Mass/Vol] 97 mg/dL [facility] Comment on above: Random Glucose Refer ence Range is dependent on time and content of last meal. Glucose of more than 200 mg/dL in a nonstressed, ambulatory subject supports the diagnosis of Diabetes Mellitus. [facility] Glucose [Mass/volume] in Ser um or PlasmaOrdered By: Estela Varma on 06-25-2023 Glucose [Mass/Vol] 89 mg/dL Normal 70-100 [facility] Comment on above: ADA recommended refe rence rangeRandom Glucose Reference Range is dependent on time and content of last meal. Glucose of more than 200 mg/dL in a nonstressed, ambulatory subject supports the diagnosis of Diabetes Mellitus. Result Comment: [facility] Glucose Reference Range is dependent on time and content of last meal. Glucose of more than 200 mg/dL in a nonstressed, ambulatory subject supports the diagnosis of Diabetes Mellitus. ADA recommended reference range Performed By: #### C BC, MARILU, LIPASE, FE and TIBC, CEA, T4F, TSH3, YUSUF, [id number], CMP #### [facility] [address] [place] [address] [place] #### METH #### [facility] , Hematocrit [Volume Fraction] of Blood by Automated countOrdered By: Estela Varma on 06-25-2023 Hematocrit (Bld) [Volume fraction] 40.7 % Normal 38.8-50.[address] [facility] Comment on above: Performed By: #### C BC, MARILU, LIPASE, FE and TIBC, CEA, T4F, TSH3, YUSUF, [id number], CMP #### [address] #### METH #### [facility] , Hemoglobin [Mass/volume] in BloodOrdered By: Estela Varma on 06-25-2023 Hemoglobin (Bld) [Mass/Vol] 13.7 g/dL Normal 13.0-17.[address] [facility] Comment on above: Performed By: #### C BC, MARILU, LIPASE, FE and TIBC, CEA, T4F, TSH3, YUSUF, [id number], CMP #### [place] [address] [place] #### METH #### [facility] , Iron [Mass/volume] in Serum or PlasmaOrdered By: Estela Varma on 06-25-2023 Iron [Mass/Vol] 159 ug/dL Normal 50-[address] [facility] Comment on above: Performed By: #### C BC, MARILU, LIPASE, FE and TIBC, CEA, T4F, TSH3, YUSUF, [id number], CMP #### [place] [address] [place] #### METH #### [facility] , Iron and TIBC Profileon 06-14 % Iron Saturation 65.7 % High 20-50 [facility] Comment on above: Performed By: #### C BC, MARILU, LIPASE, FE and TIBC, CEA, T4F, TSH3, YUSUF, [id number], CMP #### [place] [address] [place] #### METH #### [facility] , Total Iron Binding Capacity 242 ug/dL Low 255-450 [facility] Comment on above: Performed By: #### C BC, MARILU, LIPASE, FE and TIBC, CEA, T4F, TSH3, YUSUF, [id number], CMP #### [facility] [address] [place] [address] [place] #### METH #### [facility] , Iron binding capacity [Mass/ volume] in Serum or PlasmaOrdered By: Estela Varma on 06-25-2023 Iron binding capacity [Mass/Vol] 242 ug/dL 255-[address] [facility] Iron saturation [Mass Fracti on] in Serum or PlasmaOrdered By: Estela Varma on 06-25-2023 Iron saturation [Mass fraction] 65.7 % 20-[address] [facility] Leukocytes [#/volume] correc chris for nucleated erythrocytes in Blood by Automated counOrdered By: Estela Varma on 06-25-2023 WBC corrected for nucl RBC Auto (Bld) [#/Vol] 8.4 10*3/uL 4.1-10.[address] [facility] Leukocytes [#/volume] in Blo od by Automated countOrdered By: Estela Varma on 06-25-2023 WBC (Bld) [#/Vol] 8.4 10*3/uL Normal 4.1-10.5 [facility] Comment on above: Performed By: #### C BC, MARILU, LIPASE, FE and TIBC, CEA, T4F, TSH3, YUSUF, [id number], CMP #### [facility] [address] [place] [address] [place] #### METH #### [facility] , Lipase [Enzymatic activity/v olume] in Serum or PlasmaOrdered By: Estela Varma on 06-25-2023 Lipase [Catalytic activity/Vol] 36.0 U/L Normal 11.0-82.[address] [facility] Comment on above: Performed By: #### C BC, MARILU, LIPASE, FE and TIBC, CEA, T4F, TSH3, YUSUF, [id number], CMP #### [facility] [address] [place] [address] [place] #### METH #### [facility] , Lymphocytes [#/volume] in Bl ood by Automated countOrdered By: Estela Varma on 06-25-2023 Lymphocytes (Bld) [#/Vol] 0.8 10*3/uL Low 1.00-4.[address] [facility] Comment on above: Performed By: #### C BC, MARILU, LIPASE, FE and TIBC, CEA, T4F, TSH3, YUSUF, [id number], CMP #### [place] [address] [place] #### METH #### [facility] , Lymphocytes/100 leukocytes i n Blood by Automated countOrdered By: Estela Varma on 06-25-2023 Lymphocytes/100 WBC (Bld) 9.3 % Normal . [facility] Comment on above: Performed By: #### C BC, MARILU, LIPASE, FE and TIBC, CEA, T4F, TSH3, YUSUF, [id number], CMP #### [place] [address] [place] #### METH #### [facility] , MCH [Entitic mass] by Automa chris countOrdered By: Estela Varma on 06-25-2023 MCH (RBC) [Entitic mass] 32.9 pg Normal 27.5-35.[address] [facility] Comment on above: Performed By: #### C BC, MARILU, LIPASE, FE and TIBC, CEA, T4F, TSH3, YUSUF, [id number], CMP #### [place] [address] [place] #### METH #### [facility] , MCHC Auto (RBC) [Mass/Vol]Or dered By: Estela Varma on 06-25-2023 MCHC (RBC) [Mass/Vol] 33.7 g/dL 32.5-35.6 [facility] MCV [Entitic volume] by Auto mated countOrdered By: Estela Varma on 06-25-2023 MCV (RBC) [Entitic vol] 97.6 fL Normal 83.5-[address] [facility] Comment on above: Performed By: #### C BC, MARILU, LIPASE, FE and TIBC, CEA, T4F, TSH3, YUSUF, [id number], CMP #### [facility] [address] [place] [address] #### METH #### [facility] , Methylmalonic Acidon 024 Methylmalonic Acid 115 Normal 0-378 [facility] [facility] Comment on above: Result Comment: This test was developed and its performance characteristics determined by [facility]. It has not been cleared or approved by the Food and Drug Administration. Performed at: [address] [id number] International Manager: Loc De Jesus MD, Phone: [phone] PERFORMED BY: [place] [address] PATHOLOGIST ACTIVITIES COORDINATOR CATY DELCID M.D. Performed By: #### C BC, MARILU, LIPASE, FE and TIBC, CEA, T4F, TSH3, YUSUF, [id number], CMP #### [facility] [address] [place] [address] #### METH #### [facility] , Neutrophils [#/volume] in Bl ood by Automated countOrdered By: Estela Varma on 06-25-2023 Neutrophils (Bld) [#/Vol] 6.5 10*3/uL Normal 1.8-7.[address] [facility] Comment on above: Performed By: #### C BC, MARILU, LIPASE, FE and TIBC, CEA, T4F, TSH3, YUSUF, [id number], CMP #### [facility] [address] [place] [address] [place] #### METH #### [facility] , No Panel InformationOrdered By: Estela Varma on 06-25-2023 Estimated GFR (CKD-EPI) > 60.0 mL/Min [facility] Creatinine Clearance (Chem 108.[address] [facility] Nucleated erythrocytes [Pres ence] in Blood by Automated countOrdered By: Estela Varma on 06-25-2023 Nucleated RBC Auto Ql (Bld) 0.2 /100{WBC} 0-0.[address] [facility] PET tumor subq tx strat sb-m ton 06-25-2023 PET tumor subq tx strat sb-mt [facility] [place] [address] [place] [address] Nuclear Medicine Report Signed Patient: Kirill Echols MR#: [id number] : 1965 Acct:[id number] Age/Sex: 58 / M ADM Date: 06/25/23 Loc: Room: Type: [facility] Attending Dr: Estela Varma II, DO Copies [...] Ellison Jr., D.O.06/25/2023 10:28 AM Dictation Location: [place] [address] Transcribed By: MARU 06/25/23 1028 Dictated By: Victorino Ellison Jr, DO 06/25/23 1017 Signed By: 06/25/23 1028 Normal [facility] Platelet mean volume [Entiti c volume] in Blood by Automated countOrdered By: Estela Varma on 06-25-2023 Platelet mean volume (Bld) [Entitic vol] 7.4 fL Normal 6.6-10.[address] [facility] Comment on above: Performed By: #### C BC, MARILU, LIPASE, FE and TIBC, CEA, T4F, TSH3, YUSUF, [id number], CMP #### [address] #### METH #### [facility] , Platelets [#/volume] in Bloo d by Automated countOrdered By: Estela Varma on 06-25-2023 Platelets (Bld) [#/Vol] 196 10*3/uL Normal 150-[address] [facility] Comment on above: Performed By: #### C BC, MARILU, LIPASE, FE and TIBC, CEA, T4F, TSH3, YUSUF, [id number], CMP #### [address] #### METH #### [facility] , Potassium [Moles/volume] in Serum or PlasmaOrdered By: Estela Varma on 06-25-2023 Potassium [Moles/Vol] 4.2 mmol/L Normal 3.5-5.1 [facility] Comment on above: Performed By: #### C BC, MARILU, LIPASE, FE and TIBC, CEA, T4F, TSH3, YUSUF, [id number], CMP #### [place] [address] [place] #### METH #### [facility] , Protein [Mass/volume] in Ser um or PlasmaOrdered By: Estela Varma on 06-25-2023 Protein [Mass/Vol] 6.9 g/dL Normal 6.4-8.9 [facility] Comment on above: Performed By: #### C BC, MARILU, LIPASE, FE and TIBC, CEA, T4F, TSH3, YUSUF, [id number], CMP #### [facility] [address] [place] [address] [place] #### METH #### [facility] , Serum globulin measurement b y calculation (mass/volume)Ordered By: Estela Varma on 06-25-2023 Globulin (S) [Mass/Vol] 3.0 g/dL [facility] Comment on above: Performed By: #### C BC, MARILU, LIPASE, FE and TIBC, CEA, T4F, TSH3, YUSUF, [id number], CMP #### [place] [address] [place] #### METH #### [facility] , Serum or plasma albumin/glob ulin mass ratioOrdered By: Estela Varma on 06-25-2023 Albumin/Globulin [Mass ratio] 1.3 {ratio} [facility] Comment on above: Performed By: #### C BC, MARILU, LIPASE, FE and TIBC, CEA, T4F, TSH3, YUSUF, [id number], CMP #### [facility] [address] [place] [address] [place] #### METH #### [facility] , Serum or plasma anion gap de terminationOrdered By: Estela Varma on 06-25-2023 Anion gap [Moles/Vol] 11.0 mmol/L Normal 6.0-15.0 [facility] Comment on above: Performed By: #### C BC, MARILU, LIPASE, FE and TIBC, CEA, T4F, TSH3, UYSUF, [id number], CMP #### [facility] [address] [place] [address] [place] #### METH #### [facility] , Serum or plasma carcinoembry onic antigen measurement (mass/volume)Ordered By: Estela Varma on 06-25-2023 Carcinoembryonic Ag [Mass/Vol] 9.4 ng/mL 0.0-3.[address] [facility] Comment on above: Serial tumor marker results determined by assays using different manufacturers or methods may not be comparable.[facility] registered radiation therapist and method:VALENTINE UNICEL DXI, 2 SITE IMMUNOENZYMATIC SANDWICH ASSAY. Sodium [Moles/volume] in Ser um or PlasmaOrdered By: Estela Varma on 06-25-2023 Sodium [Moles/Vol] 126 mmol/L Low 136-145 [facility] Comment on above: Performed By: #### C BC, MARILU, LIPASE, FE and TIBC, CEA, T4F, TSH3, YUSUF, [id number], CMP #### [address] #### METH #### [facility] , Thyrotropin [Units/volume] i n Serum or PlasmaOrdered By: Estela Varma on 06-25-2023 TSH Qn 9.92 m[IU]/L High 0.45-5.[address] [facility] Comment on above: Result Comment: PERF ORMED BY: [place] [address] PATHOLOGIST ACTIVITIES COORDINATOR CATY DELCID M.D. Performed By: #### C BC, MARILU, LIPASE, FE and TIBC, CEA, T4F, TSH3, YUSUF, [id number], CMP #### [address] #### METH #### [facility] , Thyroxine (T4) free [Mass/vo lume] in Serum or PlasmaOrdered By: Estela Varma on 06-25-2023 Free T4 [Mass/Vol] 0.71 ng/dL Normal 0.61-1.12 [facility] Comment on above: Performed By: #### C BC, MARILU, LIPASE, FE and TIBC, CEA, T4F, TSH3, YUSUF, [id number], CMP #### [place] [address] [place] #### METH #### [facility] , Transferrin [Mass/volume] in Serum or PlasmaOrdered By: Estela Varma on 06-25-2023 Transferrin [Mass/Vol] 173 mg/dL Low 203-[address] [facility] Comment on above: Performed By: #### C BC, MARILU, LIPASE, FE and TIBC, CEA, T4F, TSH3, YUSUF, [id number], CMP #### [place] [address] [place] #### METH #### [facility] , Urea nitrogen [Mass/volume] in Serum or PlasmaOrdered By: Estela Varma on 06-25-2023 Urea nitrogen [Mass/Vol] 5 mg/dL Low 7-[address] [facility] Comment on above: Performed By: #### C BC, MARILU, LIPASE, FE and TIBC, CEA, T4F, TSH3, YUSUF, [id number], CMP #### [place] [address] [place] #### METH #### [facility] , Vit. B12/Folate Profileon Folate 9.6 ng/mL Normal >5.9 [facility] Comment on above: Result Comment: Estrella te reference range: >5.9 ng/ml The WHO technical consultation on folate and vitamin b12 deficiencies has determined that folate concentrations less than 4 ng/ml are considered deficient. Performed By: #### C BC, MARILU, LIPASE, FE and TIBC, CEA, T4F, TSH3, YUSUF, [id number], CMP #### [place] [address] [place] #### METH #### [facility] , Vitamin B12 ser/plasOrdered By: Estela Varma on 06-25-2023 Cobalamin (Vitamin B12) [Mass/Vol] 309 pg/mL Normal 180-[address] [facility] Comment on above: Performed By: #### C BC, MARILU, LIPASE, FE and TIBC, CEA, T4F, TSH3, YUSUF, [id number], CMP #### [place] [address] [place] #### METH #### [facility] , Amylaseon 03-30-2023 Amylase [Catalytic activity/Vol] 48 U/L Normal 29-103 [facility] Comment on above: Performed By: #### C BC, MARILU, LIPASE, FE and TIBC, CEA, T4F, TSH3, YUSUF, [id number], CMP #### [address] #### METH #### [facility] , Complete Blood Count Auto Di ffon 03-30-2023 Basophils (Bld) [#/Vol] 0.0 10*3/uL Normal 0.0-0.2 [facility] Comment on above: Result Comment: PERF ORMED BY: [place] [address] PATHOLOGIST ACTIVITIES COORDINATOR CATY DELCID M.D. Performed By: #### C BC, MARILU, LIPASE, FE and TIBC, CEA, T4F, TSH3, YUSUF, [id number], CMP #### [address] #### METH #### [facility] , Basophils/100 WBC (Bld) 0.6 % Normal . [facility] Comment on above: Performed By: #### C BC, MARILU, LIPASE, FE and TIBC, CEA, T4F, TSH3, YUSUF, [id number], CMP #### [place] [address] [place] #### METH #### [facility] , Eosinophils (Bld) [#/Vol] 0.2 10*3/uL Normal 0.0-0.45 [facility] Comment on above: Performed By: #### C BC, MARILU, LIPASE, FE and TIBC, CEA, T4F, TSH3, YUSUF, [id number], CMP #### [place] [address] [place] #### METH #### [facility] , Eosinophils/100 WBC (Bld) 4.8 % Normal . [facility] Comment on above: Performed By: #### C BC, MARILU, LIPASE, FE and TIBC, CEA, T4F, TSH3, YUSUF, [id number], CMP #### [address] #### METH #### [facility] , Erythrocyte distribution width (RBC) [Ratio] 15.7 % High 12.0-14.8 [facility] Comment on above: Performed By: #### C BC, MARILU, LIPASE, FE and TIBC, CEA, T4F, TSH3, YSUUF, [id number], CMP #### [address] #### METH #### [facility] , Hematocrit (Bld) [Volume fraction] 39.3 % Normal 38.8-50.0 [facility] Comment on above: Performed By: #### C BC, MARILU, LIPASE, FE and TIBC, CEA, T4F, TSH3, YUSUF, [id number], CMP #### [place] [address] [place] #### METH #### [facility] , Hemoglobin (Bld) [Mass/Vol] 13.3 g/dL Normal 13.0-17.0 [facility] Comment on above: Performed By: #### C BC, MARILU, LIPASE, FE and TIBC, CEA, T4F, TSH3, YUSUF, [id number], CMP #### [place] [address] [place] #### METH #### [facility] , Lymphocytes (Bld) [#/Vol] 0.8 10*3/uL Low 1.00-4.8 [facility] Comment on above: Performed By: #### C BC, MARILU, LIPASE, FE and TIBC, CEA, T4F, TSH3, YUSUF, [id number], CMP #### [place] [address] [place] #### METH #### [facility] , Lymphocytes/100 WBC (Bld) 14.7 % Normal . [facility] Comment on above: Performed By: #### C BC, MARILU, LIPASE, FE and TIBC, CEA, T4F, TSH3, YUSUF, [id number], CMP #### [place] [address] [place] #### METH #### [facility] , MCH (RBC) [Entitic mass] 33.1 pg Normal 27.5-35.2 [facility] Comment on above: Performed By: #### C BC, MARILU, LIPASE, FE and TIBC, CEA, T4F, TSH3, YUSUF, [id number], CMP #### [place] [address] [place] #### METH #### [facility] , MCV (RBC) [Entitic vol] 98.1 fL Normal 83.5-101 [facility] Comment on above: Performed By: #### C BC, MARILU, LIPASE, FE and TIBC, CEA, T4F, TSH3, YUSUF, [id number], CMP #### [place] [address] [place] #### METH #### [facility] , Mean Corpuscular HGB Conc 33.8 g/dL Normal 32.5-35.6 [facility] Comment on above: Performed By: #### C BC, MARILU, LIPASE, FE and TIBC, CEA, T4F, TSH3, YUSUF, [id number], CMP #### [place] [address] [place] #### METH #### [facility] , Monocytes (Bld) [#/Vol] 0.6 10*3/uL Normal 0.0-0.8 [facility] Comment on above: Performed By: #### C BC, MARILU, LIPASE, FE and TIBC, CEA, T4F, TSH3, YUSUF, [id number], CMP #### [place] [address] [place] #### METH #### [facility] , Monocytes/100 WBC (Bld) 12.2 % Normal . [facility] Comment on above: Performed By: #### C BC, MARILU, LIPASE, FE and TIBC, CEA, T4F, TSH3, YUSUF, [id number], CMP #### [address] #### METH #### [facility] , Neutrophils (Bld) [#/Vol] 3.5 10*3/uL Normal 1.8-7.7 [facility] Comment on above: Performed By: #### C BC, MARILU, LIPASE, FE and TIBC, CEA, T4F, TSH3, YUSUF, [id number], CMP #### [place] [address] [place] #### METH #### [facility] , Neutrophils/100 WBC (Bld) 67.7 % Normal . [facility] Comment on above: Performed By: #### C BC, MARILU, LIPASE, FE and TIBC, CEA, T4F, TSH3, YUSUF, [id number], CMP #### [place] [address] [place] #### METH #### [facility] , NRBC% 0.1 /100{WBC} Normal 0-0.5 [facility] Comment on above: Performed By: #### C BC, MARILU, LIPASE, FE and TIBC, CEA, T4F, TSH3, YUSUF, [id number], CMP #### [place] [address] [place] #### METH #### [facility] , Platelet mean volume (Bld) [Entitic vol] 7.3 fL Normal 6.6-10.1 [facility] Comment on above: Performed By: #### C BC, MARILU, LIPASE, FE and TIBC, CEA, T4F, TSH3, YUSUF, [id number], CMP #### [place] [address] [place] #### METH #### [facility] , Platelets (Bld) [#/Vol] 155 10*3/uL Normal 150-450 [facility] Comment on above: Performed By: #### C BC, MARILU, LIPASE, FE and TIBC, CEA, T4F, TSH3, YUSUF, [id number], CMP #### [place] [address] [place] #### METH #### [facility] , RBC (Bld) [#/Vol] 4.00 10*6/uL Normal 3.90-5.60 [facility] Comment on above: Performed By: #### C BC, MARILU, LIPASE, FE and TIBC, CEA, T4F, TSH3, YUSUF, [id number], CMP #### [address] #### METH #### [facility] , WBC (Bld) [#/Vol] 5.2 10*3/uL Normal 4.1-10.5 [facility] Comment on above: Performed By: #### C BC, MARILU, LIPASE, FE and TIBC, CEA, T4F, TSH3, YUSUF, [id number], CMP #### [place] [address] [place] #### METH #### [facility] , Comprehensive Metabolic Pane nicolas 03-30-2023 Albumin [Mass/Vol] 3.9 g/dL Normal 3.5-5.7 [facility] Comment on above: Performed By: #### C BC, MARILU, LIPASE, FE and TIBC, CEA, T4F, TSH3, YUSUF, [id number], CMP #### [address] #### METH #### [facility] , Albumin/Globulin [Mass ratio] 1.3 {ratio} Normal [facility] Comment on above: Performed By: #### C BC, MARILU, LIPASE, FE and TIBC, CEA, T4F, TSH3, YUSUF, [id number], CMP #### [place] [address] [place] #### METH #### [facility] , ALP [Catalytic activity/Vol] 136 U/L High 34-104 [facility] Comment on above: Performed By: #### C BC, MARILU, LIPASE, FE and TIBC, CEA, T4F, TSH3, YUSUF, [id number], CMP #### [address] #### METH #### [facility] , ALT [Catalytic activity/Vol] 11 U/L Normal 7-52 [facility] Comment on above: Performed By: #### C BC, MARILU, LIPASE, FE and TIBC, CEA, T4F, TSH3, YUSUF, [id number], CMP #### [place] [address] [place] #### METH #### [facility] , Anion gap [Moles/Vol] 10.4 mmol/L Normal 6.0-15.0 [facility] Comment on above: Performed By: #### C BC, MARILU, LIPASE, FE and TIBC, CEA, T4F, TSH3, YUSUF, [id number], CMP #### [place] [address] [place] #### METH #### [facility] , AST [Catalytic activity/Vol] 18 U/L Normal 13-39 [facility] Comment on above: Performed By: #### C BC, MARILU, LIPASE, FE and TIBC, CEA, T4F, TSH3, YUSUF, [id number], CMP #### [place] [address] [place] #### METH #### [facility] , Bilirubin [Mass/Vol] 0.7 mg/dL Normal 0.3-1.0 [facility] Comment on above: Performed By: #### C BC, MARILU, LIPASE, FE and TIBC, CEA, T4F, TSH3, YUSUF, [id number], CMP #### [place] [address] [place] #### METH #### [facility] , Calcium [Mass/Vol] 8.5 mg/dL Low 8.6-10.3 [facility] Comment on above: Performed By: #### C BC, MARILU, LIPASE, FE and TIBC, CEA, T4F, TSH3, YUSUF, [id number], CMP #### [place] [address] [place] #### METH #### [facility] , Chloride [Moles/Vol] 102 mmol/L Normal 98-107 [facility] Comment on above: Performed By: #### C BC, MARILU, LIPASE, FE and TIBC, CEA, T4F, TSH3, YUSUF, [id number], CMP #### [place] [address] [place] #### METH #### [facility] , CO2 [Moles/Vol] 21.7 mmol/L Normal 21.0-31.0 [facility] Comment on above: Performed By: #### C BC, MARILU, LIPASE, FE and TIBC, CEA, T4F, TSH3, YUSUF, [id number], CMP #### [facility] [address] [place] [address] [place] #### METH #### [facility] , Creatinine [Mass/Vol] 0.80 mg/dL Normal 0.70-1.30 [facility] Comment on above: Performed By: #### C BC, MARILU, LIPASE, FE and TIBC, CEA, T4F, TSH3, YUSUF, [id number], CMP #### [place] [address] [place] #### METH #### [facility] , Creatinine Clr Calc Pharmacy 96.47 Normal [facility] Comment on above: Performed By: #### C BC, MARILU, LIPASE, FE and TIBC, CEA, T4F, TSH3, YUSUF, [id number], CMP #### [place] [address] [place] #### METH #### [facility] , GFR/1.73 sq M.predicted MDRD (S/P/Bld) [Vol rate/Area] mL/min/{1.73_m2} Normal [facility] Comment on above: Performed By: #### C BC, MARILU, LIPASE, FE and TIBC, CEA, T4F, TSH3, YUSUF, [id number], CMP #### [place] [address] [place] #### METH #### [facility] , Globulin (S) [Mass/Vol] 2.9 g/dL Normal [facility] Comment on above: Performed By: #### C BC, MARILU, LIPASE, FE and TIBC, CEA, T4F, TSH3, YUSUF, [id number], CMP #### [place] [address] [place] #### METH #### [facility] , Glucose [Mass/Vol] 84 mg/dL Normal 70-100 [facility] Comment on above: Result Comment: [place] Glucose Reference Range is dependent on time and content of last meal. Glucose of more than 200 mg/dL in a nonstressed, ambulatory subject supports the diagnosis of Diabetes Mellitus. ADA recommended reference range Performed By: #### C BC, MARILU, LIPASE, FE and TIBC, CEA, T4F, TSH3, YUSUF, [id number], CMP #### [place] [address] [place] #### METH #### [facility] , Potassium [Moles/Vol] 4.1 mmol/L Normal 3.5-5.1 [facility] Comment on above: Performed By: #### C BC, MARILU, LIPASE, FE and TIBC, CEA, T4F, TSH3, YUSUF, [id number], CMP #### [place] [address] [place] #### METH #### [facility] , Protein [Mass/Vol] 6.8 g/dL Normal 6.4-8.9 [facility] Comment on above: Performed By: #### C BC, MARILU, LIPASE, FE and TIBC, CEA, T4F, TSH3, YUSUF, [id number], CMP #### [address] #### METH #### [facility] , Sodium [Moles/Vol] 130 mmol/L Low 136-145 [facility] Comment on above: Performed By: #### C BC, MARILU, LIPASE, FE and TIBC, CEA, T4F, TSH3, YUSUF, [id number], CMP #### [place] [address] [place] #### METH #### [facility] , Urea nitrogen [Mass/Vol] 5 mg/dL Low 7-25 [facility] Comment on above: Performed By: #### C BC, MARILU, LIPASE, FE and TIBC, CEA, T4F, TSH3, YUSUF, [id number], CMP #### [place] [address] [place] #### METH #### [facility] , Folateon 03-30-2023 Folate 15.4 ng/mL Normal >5.9 [facility] Comment on above: Result Comment: Estrella te reference range: >5.9 ng/ml The WHO technical consultation on folate and vitamin b12 deficiencies has determined that folate concentrations less than 4 ng/ml are considered deficient. Performed By: #### C BC, MARILU, LIPASE, FE and TIBC, CEA, T4F, TSH3, YUSUF, [id number], CMP #### [place] [address] [place] #### METH #### [facility] , Free T4 (Free Thyroxine)on 05-30-2022 Free T4 [Mass/Vol] 0.50 ng/dL Low 0.61-1.12 [facility] Comment on above: Result Comment: PERF ORMED BY: [place] [address] PATHOLOGIST ACTIVITIES COORDINATOR CATY DELCID M.D. Performed By: #### C BC, MARILU, LIPASE, FE and TIBC, CEA, T4F, TSH3, YUSUF, [id number], CMP #### [place] [address] [place] #### METH #### [facility] , Iron and TIBC Profileon 03-14 % Iron Saturation 67.5 % High 20-50 [facility] Comment on above: Performed By: #### C BC, MARILU, LIPASE, FE and TIBC, CEA, T4F, TSH3, YUSUF, [id number], CMP #### [address] #### METH #### [facility] , Iron [Mass/Vol] 154 ug/dL Normal 50-212 [facility] Comment on above: Performed By: #### C BC, MARILU, LIPASE, FE and TIBC, CEA, T4F, TSH3, YUSUF, [id number], CMP #### [place] [address] [place] #### METH #### [facility] , Total Iron Binding Capacity 228 ug/dL Low 255-450 [facility] Comment on above: Performed By: #### C BC, MARILU, LIPASE, FE and TIBC, CEA, T4F, TSH3, YUSUF, [id number], CMP #### [place] [address] [place] #### METH #### [facility] , Transferrin [Mass/Vol] 163 mg/dL Low 203-362 [facility] Comment on above: Performed By: #### C BC, MARILU, LIPASE, FE and TIBC, CEA, T4F, TSH3, YUSUF, [id number], CMP #### [place] [address] [place] #### METH #### [facility] , Lipaseon 03-30-2023 Lipase [Catalytic activity/Vol] 22.0 U/L Normal 11.0-82.0 [facility] Comment on above: Performed By: #### C BC, MARILU, LIPASE, FE and TIBC, CEA, T4F, TSH3, YUSUF, [id number], CMP #### [address] #### METH #### [facility] , Methylmalonic Acidon 023 Methylmalonic Acid 129 Normal 0-378 [facility] Comment on above: Result Comment: This test was developed and its performance characteristics determined by [employer]. It has not been cleared or approved by the Food and Drug Administration. Performed at: [address] [id number] International Manager: Loc De Jesus MD, Phone: [phone] PERFORMED BY: [place] [address] PATHOLOGIST ACTIVITIES COORDINATOR CATY DELCID M.D. Performed By: #### C BC, MARILU, LIPASE, FE and TIBC, CEA, T4F, TSH3, YUSUF, [id number], CMP #### [place] [address] [place] #### METH #### [facility] , Serum or plasma methylmalona te measurement (moles/volume)Ordered By: Estela Varma on 03-30-2023 Methylmalonate [Moles/Vol] 129 nmol/L 0-[address] [facility] Comment on above: This test was develo ped and its performance characteristicsdetermined by [facility]. It has not been cleared orapproved by the Food and Drug Administration.Performed at: [address] [id number] Director: Loc De Jesus MD, Phone: [phone] Vitamin B12on 03-30-2023 Cobalamin (Vitamin B12) [Mass/Vol] 462 pg/mL Normal 180-914 [facility] Comment on above: Performed By: #### C BC, MARILU, LIPASE, FE and TIBC, CEA, T4F, TSH3, YUSUF, [id number], CMP #### [address] #### METH #### [facility] , Alanine aminotransferase [En zymatic activity/volume] in Serum or PlasmaOrdered By: Estela Varma on 12-22-2022 ALT [Catalytic activity/Vol] 13 U/L 7-[address] [facility] Albumin [Mass/volume] in Ser um or Plasma by Bromocresol green (BCG) dye binding methoOrdered By: Estela Varma on 12-22-2022 Albumin BCG dye [Mass/Vol] 3.7 g/dL 3.5-5.[address] [facility] Alkaline phosphatase [Enzyma tic activity/volume] in Serum or PlasmaOrdered By: Estela Varma on 12-22-2022 ALP [Catalytic activity/Vol] 122 U/L 34-[address] [facility] Aspartate aminotransferase [ Enzymatic activity/volume] in Serum or PlasmaOrdered By: Estela Varma on 12-22-2022 AST [Catalytic activity/Vol] 17 U/L 13-[address] [facility] Basophils Auto (Bld) [#/Vol] Ordered By: Estela Varma on 12-22-2022 Basophils (Bld) [#/Vol] 0.1 10*3/uL 0.0-0.[address] [facility] Basophils/100 WBC Auto (Bld) Ordered By: Estela Varma on 12-22-2022 Basophils/100 WBC (Bld) 1.3 % . [facility] Bilirubin.total [Mass/volume ] in Serum or PlasmaOrdered By: Estela Varma on 12-22-2022 Bilirubin [Mass/Vol] 0.5 mg/dL 0.3-1.0 [facility] Calcium [Mass/volume] in Ser um or PlasmaOrdered By: Estela Varma on 12-22-2022 Calcium [Mass/Vol] 8.0 mg/dL 8.6-10.3 [facility] Carbon dioxide, total [Moles /volume] in Serum or PlasmaOrdered By: Estela Varma on 12-22-2022 CO2 [Moles/Vol] 23.2 mmol/L 21.0-31.0 [facility] Chloride [Moles/volume] in S coral or PlasmaOrdered By: Estela Varma on 12-22-2022 Chloride [Moles/Vol] 100 mmol/L 98-107 [facility] Creatinine [Mass/volume] in Serum or PlasmaOrdered By: Estela Varma on 12-22-2022 Creatinine [Mass/Vol] 0.69 mg/dL 0.70-1.30 [facility] Eosinophils Auto (Bld) [#/Vo l]Ordered By: Estela Varma on 12-22-2022 Eosinophils (Bld) [#/Vol] 0.3 10*3/uL 0.0-0.[address] [facility] Eosinophils/100 WBC Auto (Bl d)Ordered By: Estela Varma on 12-22-2022 Eosinophils/100 WBC (Bld) 5.0 % . [facility] Erythrocyte distribution wid th Auto (RBC) [Ratio]Ordered By: Estela Varma on 12-22-2022 Erythrocyte distribution width (RBC) [Ratio] 16.0 % 12.0-14.[address] [facility] Globulin Calc (S) [Mass/Vol] Ordered By: Estela Varma on 12-22-2022 Globulin (S) [Mass/Vol] 2.3 g/dL [facility] Glucose Glucometer (BldC) [M ass/Vol]Ordered By: Estela Varma on 12-22-2022 Glucose [Mass/Vol] 71 mg/dL [facility] Comment on above: Random Glucose Refer ence Range is dependent on time and content of last meal. Glucose of more than 200 mg/dL in a nonstressed, ambulatory subject supports the diagnosis of Diabetes Mellitus. Glucose [Mass/volume] in Ser um or PlasmaOrdered By: Estela Varma on 12-22-2022 Glucose [Mass/Vol] 65 mg/dL 70-100 [facility] Comment on above: ADA recommended refe rence rangeRandom Glucose Reference Range is dependent on time and content of last meal. Glucose of more than 200 mg/dL in a nonstressed, ambulatory subject supports the diagnosis of Diabetes Mellitus. Hematocrit Auto (Bld) [Volum e fraction]Ordered By: Estela Varma on 12-22-2022 Hematocrit (Bld) [Volume fraction] 39.6 % 38.8-50.[address] [facility] Hemoglobin [Mass/volume] in BloodOrdered By: Estela Varma on 12-22-2022 Hemoglobin (Bld) [Mass/Vol] 13.3 g/dL 13.0-17.[address] [facility] Leukocytes [#/volume] correc chris for nucleated erythrocytes in Blood by Automated counOrdered By: Estela Varma on 12-22-2022 WBC corrected for nucl RBC Auto (Bld) [#/Vol] 6.0 10*3/uL 4.1-10.[address] [facility] Lymphocytes Auto (Bld) [#/Vo l]Ordered By: Estela Varma on 12-22-2022 Lymphocytes (Bld) [#/Vol] 0.9 10*3/uL 1.00-4.[address] [facility] Lymphocytes/100 WBC Auto (Bl d)Ordered By: Estela Varma on 12-22-2022 Lymphocytes/100 WBC (Bld) 15.7 % . [facility] MCH Auto (RBC) [Entitic mass ]Ordered By: Estela Varma on 12-22-2022 MCH (RBC) [Entitic mass] 31.9 pg 27.5-35.[address] [facility] MCHC Auto (RBC) [Mass/Vol]Or dered By: Estela Varma on 12-22-2022 MCHC (RBC) [Mass/Vol] 33.5 g/dL 32.5-35.6 [facility] MCV Auto (RBC) [Entitic vol] Ordered By: Estela Varma on 12-22-2022 MCV (RBC) [Entitic vol] 95.0 fL 83.5-[address] [facility] Monocytes Auto (Bld) [#/Vol] Ordered By: Estela Varma on 12-22-2022 Monocytes (Bld) [#/Vol] 0.5 10*3/uL 0.0-0.[address] [facility] Monocytes/100 WBC Auto (Bld) Ordered By: Estela Varma on 12-22-2022 Monocytes/100 WBC (Bld) 7.8 % . [facility] Neutrophils Auto (Bld) [#/Vo l]Ordered By: Estela Varma on 12-22-2022 Neutrophils (Bld) [#/Vol] 4.2 10*3/uL 1.8-7.[address] [facility] Neutrophils/100 WBC Auto (Bl d)Ordered By: Estela Varma on 12-22-2022 Neutrophils/100 WBC (Bld) 70.2 % . [facility] No Panel InformationOrdered By: Estela Varma on 12-22-2022 Estimated GFR (CKD-EPI) > 60.0 mL/Min [facility] Creatinine Clearance (Chem 114.[address] [facility] Nucleated erythrocytes [Pres ence] in Blood by Automated countOrdered By: Estela Varma on 12-22-2022 Nucleated RBC Auto Ql (Bld) 0.0 /100{WBC} 0-0.[address] [facility] Platelet mean volume Auto (B ld) [Entitic vol]Ordered By: Estela Varma on 12-22-2022 Platelet mean volume (Bld) [Entitic vol] 6.9 fL 6.6-10.[address] [facility] Platelets Auto (Bld) [#/Vol] Ordered By: Estela Varma on 12-22-2022 Platelets (Bld) [#/Vol] 177 10*3/uL 150-[address] [facility] Potassium [Moles/volume] in Serum or PlasmaOrdered By: Estela Varma on 12-22-2022 Potassium [Moles/Vol] 4.2 mmol/L 3.5-5.1 [facility] Protein [Mass/volume] in Ser um or PlasmaOrdered By: Estela Varma on 12-22-2022 Protein [Mass/Vol] 6.0 g/dL 6.4-8.9 [facility] RBC Auto (Bld) [#/Vol]Ordere d By: Estela Varma on 12-22-2022 RBC (Bld) [#/Vol] 4.17 10*6/uL 3.90-5.60 [facility] Serum or plasma albumin/glob ulin mass ratioOrdered By: Estela Varma on 12-22-2022 Albumin/Globulin [Mass ratio] 1.6 {ratio} [facility] Serum or plasma anion gap de terminationOrdered By: Estela Varma on 12-22-2022 Anion gap [Moles/Vol] 8.0 mmol/L 6.0-15.0 [facility] Sodium [Moles/volume] in Ser um or PlasmaOrdered By: Estela Varma on 12-22-2022 Sodium [Moles/Vol] 127 mmol/L 136-145 [facility] Urea nitrogen [Mass/volume] in Serum or PlasmaOrdered By: Estela Varma on 12-22-2022 Urea nitrogen [Mass/Vol] 6 mg/dL 7-[address] [facility] WBC Auto (Bld) [#/Vol]Ordere d By: Estela Varma on 12-22-2022 WBC (Bld) [#/Vol] 6.0 10*3/uL 4.1-10.5 [facility] Alanine aminotransferase [En zymatic activity/volume] in Serum or PlasmaOrdered By: Estela Varma on 10-26-2022 ALT [Catalytic activity/Vol] 12 U/L 7-[address] [facility] Albumin [Mass/volume] in Ser um or Plasma by Bromocresol green (BCG) dye binding methoOrdered By: Estela Varma on 10-26-2022 Albumin BCG dye [Mass/Vol] 3.9 g/dL 3.5-5.[address] [facility] Alkaline phosphatase [Enzyma tic activity/volume] in Serum or PlasmaOrdered By: Estela Varma on 10-26-2022 ALP [Catalytic activity/Vol] 140 U/L 34-[address] [facility] Aspartate aminotransferase [ Enzymatic activity/volume] in Serum or PlasmaOrdered By: Estela Varma on 10-26-2022 AST [Catalytic activity/Vol] 16 U/L 13-[address] [facility] Basophils Auto (Bld) [#/Vol] Ordered By: Estela Varma on 10-26-2022 Basophils (Bld) [#/Vol] 0.0 10*3/uL 0.0-0.[address] [facility] Basophils/100 WBC Auto (Bld) Ordered By: Estela Varma on 10-26-2022 Basophils/100 WBC (Bld) 0.8 % . [facility] Bilirubin.total [Mass/volume ] in Serum or PlasmaOrdered By: Estela Varma on 10-26-2022 Bilirubin [Mass/Vol] 0.6 mg/dL 0.3-1.0 [facility] Calcium [Mass/volume] in Ser um or PlasmaOrdered By: Estela Varma on 10-26-2022 Calcium [Mass/Vol] 8.3 mg/dL 8.6-10.3 [facility] Carbon dioxide, total [Moles /volume] in Serum or PlasmaOrdered By: Estela Varma on 10-26-2022 CO2 [Moles/Vol] 23.5 mmol/L 21.0-31.0 [facility] Chloride [Moles/volume] in S coral or PlasmaOrdered By: Estela Varma on 10-26-2022 Chloride [Moles/Vol] 98 mmol/L 98-107 [facility] Creatinine [Mass/volume] in Serum or PlasmaOrdered By: Estela Varma on 10-26-2022 Creatinine [Mass/Vol] 0.67 mg/dL 0.70-1.30 [facility] Eosinophils Auto (Bld) [#/Vo l]Ordered By: Estela Varma on 10-26-2022 Eosinophils (Bld) [#/Vol] 0.1 10*3/uL 0.0-0.[address] [facility] Eosinophils/100 WBC Auto (Bl d)Ordered By: Estela Varma on 10-26-2022 Eosinophils/100 WBC (Bld) 2.6 % . [facility] Erythrocyte distribution wid th Auto (RBC) [Ratio]Ordered By: Estela Varma on 10-26-2022 Erythrocyte distribution width (RBC) [Ratio] 15.0 % 12.0-14.[address] [facility] Erythrocyte sedimentation ra te by Photometric methodOrdered By: Estela Varma on 10-26-2022 ESR Photometric method (Bld) [Velocity] 16 mm/hr 0-[address] [facility] Ferritin [Mass/volume] in Se rum or PlasmaOrdered By: Estela Varma on 10-26-2022 Ferritin [Mass/Vol] 225.5 ng/mL 23.9-336.2 [facility] Folate [Mass/volume] in Seru m or PlasmaOrdered By: Estela Varma on 10-26-2022 Folate [Mass/Vol] 4.9 ng/mL >5.9 [facility] Comment on above: Folate reference ran ge: >5.9 ng/mlThe WHO technical consultation on folate and vitamin [id number] has determined that folate concentrations lessthan 4 ng/ml are considered deficient. Globulin Calc (S) [Mass/Vol] Ordered By: Estela Varma on 10-26-2022 Globulin (S) [Mass/Vol] 2.8 g/dL [facility] Glucose [Mass/volume] in Ser um or PlasmaOrdered By: Estela Varma on 10-26-2022 Glucose [Mass/Vol] 66 mg/dL 70-100 [facility] Comment on above: ADA recommended refe rence rangeRandom Glucose Reference Range is dependent on time and content of last meal. Glucose of more than 200 mg/dL in a nonstressed, ambulatory subject supports the diagnosis of Diabetes Mellitus. Hematocrit Auto (Bld) [Volum e fraction]Ordered By: Estela Varma on 10-26-2022 Hematocrit (Bld) [Volume fraction] 39.7 % 38.8-50.[address] [facility] Hemoglobin [Mass/volume] in BloodOrdered By: Estela Varma on 10-26-2022 Hemoglobin (Bld) [Mass/Vol] 13.6 g/dL 13.0-17.[address] [facility] Iron [Mass/volume] in Serum or PlasmaOrdered By: Estela Varma on 10-26-2022 Iron [Mass/Vol] 103 ug/dL 50-[address] [facility] Iron binding capacity [Mass/ volume] in Serum or PlasmaOrdered By: Estela Varma on 10-26-2022 Iron binding capacity [Mass/Vol] 269 ug/dL 255-[address] [facility] Iron saturation [Mass Fracti on] in Serum or PlasmaOrdered By: Estela Varma on 10-26-2022 Iron saturation [Mass fraction] 38.3 % 20-[address] [facility] Leukocytes [#/volume] correc chris for nucleated erythrocytes in Blood by Automated counOrdered By: Estela Varma on 10-26-2022 WBC corrected for nucl RBC Auto (Bld) [#/Vol] 5.8 10*3/uL 4.1-10.[address] [facility] Lymphocytes Auto (Bld) [#/Vo l]Ordered By: Estela Varma on 10-26-2022 Lymphocytes (Bld) [#/Vol] 0.9 10*3/uL 1.00-4.[address] [facility] Lymphocytes/100 WBC Auto (Bl d)Ordered By: Estela Varma on 10-26-2022 Lymphocytes/100 WBC (Bld) 15.0 % . [facility] MCH Auto (RBC) [Entitic mass ]Ordered By: Estela Varma on 10-26-2022 MCH (RBC) [Entitic mass] 32.6 pg 27.5-35.[address] [facility] MCHC Auto (RBC) [Mass/Vol]Or dered By: Estela Varma on 10-26-2022 MCHC (RBC) [Mass/Vol] 34.2 g/dL 32.5-35.6 [facility] MCV Auto (RBC) [Entitic vol] Ordered By: Estela Varma on 10-26-2022 MCV (RBC) [Entitic vol] 95.2 fL 83.5-[address] [facility] Monocytes Auto (Bld) [#/Vol] Ordered By: Estela Varma on 10-26-2022 Monocytes (Bld) [#/Vol] 0.7 10*3/uL 0.0-0.[address] [facility] Monocytes/100 WBC Auto (Bld) Ordered By: Estela Varma on 10-26-2022 Monocytes/100 WBC (Bld) 12.1 % . [facility] Neutrophils Auto (Bld) [#/Vo l]Ordered By: Estela Varma on 10-26-2022 Neutrophils (Bld) [#/Vol] 4.1 10*3/uL 1.8-7.[address] [facility] Neutrophils/100 WBC Auto (Bl d)Ordered By: Estela Varma on 10-26-2022 Neutrophils/100 WBC (Bld) 69.5 % . [facility] No Panel InformationOrdered By: Estela Varma on 10-26-2022 Estimated GFR (CKD-EPI) > 60.0 mL/Min [facility] Creatinine Clearance (Chem 121.[address] [facility] Nucleated erythrocytes [Pres ence] in Blood by Automated countOrdered By: Estela Varma on 10-26-2022 Nucleated RBC Auto Ql (Bld) 0.2 /100{WBC} 0-0.[address] [facility] Platelet mean volume Auto (B ld) [Entitic vol]Ordered By: Estela Varma on 10-26-2022 Platelet mean volume (Bld) [Entitic vol] 6.7 fL 6.6-10.[address] [facility] Platelets Auto (Bld) [#/Vol] Ordered By: Estela Varma on 10-26-2022 Platelets (Bld) [#/Vol] 227 10*3/uL 150-[address] [facility] Potassium [Moles/volume] in Serum or PlasmaOrdered By: Estela Varma on 10-26-2022 Potassium [Moles/Vol] 4.1 mmol/L 3.5-5.1 [facility] Protein [Mass/volume] in Ser um or PlasmaOrdered By: Estela Varma on 10-26-2022 Protein [Mass/Vol] 6.7 g/dL 6.4-8.9 [facility] RBC Auto (Bld) [#/Vol]Ordere d By: Estela Varma on 10-26-2022 RBC (Bld) [#/Vol] 4.17 10*6/uL 3.90-5.60 [facility] Serum or plasma albumin/glob ulin mass ratioOrdered By: Estela Varma on 10-26-2022 Albumin/Globulin [Mass ratio] 1.4 {ratio} [facility] Serum or plasma anion gap de terminationOrdered By: Estela Varma on 10-26-2022 Anion gap [Moles/Vol] 11.6 mmol/L 6.0-15.0 [facility] Serum or plasma carcinoembry onic antigen measurement (mass/volume)Ordered By: Estela Varma on 10-26-2022 Carcinoembryonic Ag [Mass/Vol] 8.0 ng/mL 0.0-3.[address] [facility] Serum or plasma erythropoiet in (EPO) measurement (units/volume)Ordered By: Estela Varma on 10-26-2022 Erythropoietin (EPO) Qn 15.7 mIU/mL 2.6-18.[address] [facility] Comment on above: [employer] Uni[employer] el DxI 800 Immunoassay SystemValues obtained with different assay methods or kits cannotbe used interchangeably. Results cannot be interpreted asabsolute evidence of the presence or absence of malignantdisease.Performed at: - [address] [id number] Director: Fernando Brand PhD, Phone: [phone] Sodium [Moles/volume] in Ser um or PlasmaOrdered By: Estela Varma on 10-26-2022 Sodium [Moles/Vol] 129 mmol/L 136-145 [facility] Transferrin [Mass/volume] in Serum or PlasmaOrdered By: Estela Varma on 10-26-2022 Transferrin [Mass/Vol] 192 mg/dL 203-[address] [facility] Urea nitrogen [Mass/volume] in Serum or PlasmaOrdered By: Estela Varma on 10-26-2022 Urea nitrogen [Mass/Vol] 8 mg/dL 7-[address] [facility] Vitamin B12 ser/plasOrdered By: Estela Varma on 10-26-2022 Cobalamin (Vitamin B12) [Mass/Vol] 252 pg/mL 180-[address] [facility] WBC Auto (Bld) [#/Vol]Ordere d By: Estela Varma on 10-26-2022 WBC (Bld) [#/Vol] 5.8 10*3/uL 4.1-10.5 [facility] CYTOLOGYon 10-03-2022 SENT TO REF LAB 10/04/2022 Normal [facility] Comment on above: Performed By: #### C YTO #### [facility] [address] [place] [address] Dr. Sushant Pradhan CULTURE STERILE BODY FLUIDon 09-11-2022 CULTURE STERILE BODY FLUID Culture Observations: NO GROWTH AT 72 HRS [facility] Comment on above: Performed By: #### C MREP #### [facility] [address] [place] [address] Dr. Sushant Pradhan CULTURE STERILE BODY FLUIDon 09-08-2022 CULTURE STERILE BODY FLUID Culture Observations: NO GROWTH AT 72 HOURS. [facility] Comment on above: Performed By: #### C MREP #### [facility] [address] [place] [address] Dr. Sushant Pradhan CULTURE STERILE BODY FLUIDon 09-04-2022 CULTURE STERILE BODY FLUID Culture Observations: NO GROWTH AT 72 HOURS. [facility] Comment on above: Performed By: #### C MREP #### [facility] [address] [place] [address] Dr. Sushant Pradhan XR RIBS LT PA [...] JESSE RAMOS Date: 2022-09-01 11:46 Normal [facility] CBC AUTO DIFFon 08-27-2022 BASO # 0.0 103/ul Normal 0.0-0.1 [facility] Comment on above: Performed By: #### C BC #### [facility] [address] [place] [address] Dr. Sushant Pradhan Basophils/100 WBC (Bld) 0.3 % Normal 0.2-2.0 [facility] Comment on above: Performed By: #### C BC #### [facility] [address] [place] [address] Dr. Sushant Pradhan EO # 0.2 103/ul Normal 0.0-0.7 [facility] Comment on above: Performed By: #### C BC #### [facility] [address] [address] [address] Sushant Pradhan Eosinophils/100 WBC (Bld) 3.0 % Normal 0.9-7.0 [facility] Comment on above: Performed By: #### C BC #### [facility] [address] [place] [address] Dr. Sushant Pradhan Erythrocyte distribution width (RBC) [Ratio] 16.5 % Critically high 11.0-15.0 [facility] Comment on above: Performed By: #### C BC #### [facility] [address] [place] [address] Dr. Sushant Pradhan Hematocrit (Bld) [Volume fraction] 38.4 % Critically low 42.0-54.0 [facility] Comment on above: Performed By: #### C BC #### [facility] [address] [place] [address] Dr. Sushant Pradhan Hemoglobin (Bld) [Mass/Vol] 13.9 g/dL Critically low 14.0-18.0 [facility] Comment on above: Performed By: #### C BC #### [facility] [address] [place] [address] Dr. Sushant Pradhan IG # 0.01 10e3/ul Normal 0.00-0.03 [facility] Comment on above: Performed By: #### C BC #### [facility] [address] [place] [address] Dr. Sushant Pradhan IG % 0.2 % Normal 0.0-0.5 [facility] Comment on above: Performed By: #### C BC #### [facility] [address] [place] [address] Dr. Sushant Pradhan LYMPH # 1.0 103/ul Critically low 1.2-3.8 [facility] Comment on above: Performed By: #### C BC #### [facility] [address] [place] [address] Dr. Sushant Pradhan Lymphocytes/100 WBC (Bld) 15.8 % Critically low 20.5-60.0 [facility] Comment on above: Performed By: #### C BC #### [facility] [address] [place] [address] Dr. Sushant Pradhan MANUAL DIFF REQ NO Normal [facility] Comment on above: Performed By: #### C BC #### [facility] [address] [place] [address] Dr. Sushant Pradhan MCH (RBC) [Entitic mass] 32.8 pg Normal 25.9-34.0 [facility] Comment on above: Performed By: #### C BC #### [facility] [address] [place] [address] Dr. Sushant Pradhan MCHC (RBC) [Mass/Vol] 36.2 g/dL Critically high 29.9-35.2 [facility] Comment on above: Performed By: #### C BC #### [facility] [address] [address] [address] Sushant Pradhan MCV (RBC) [Entitic vol] 90.6 fL Normal 80.0-94.0 [facility] Comment on above: Performed By: #### C BC #### [facility] [address] [address] [address] Sushant Pradhan MONO # 0.8 103/ul Normal 0.3-0.8 [facility] Comment on above: Performed By: #### C BC #### [facility] [address] [place] [address] Dr. Sushant Pradhan Monocytes/100 WBC (Bld) 12.6 % Critically high 1.7-12.0 [facility] Comment on above: Performed By: #### C BC #### [facility] [address] [place] [address] Dr. Sushant Pradhan NEUT # 4.3 103/ul Normal 1.4-6.5 [facility] Comment on above: Performed By: #### C BC #### [facility] [address] [place] [address] Dr. Sushant Pradhan Neutrophils/100 WBC (Bld) 68.1 % Normal 43.0-75.0 [facility] Comment on above: Performed By: #### C BC #### [facility] [address] [address] [address] Sushant Pradhan Platelet mean volume (Bld) [Entitic vol] 9.0 fL Critically low 9.5-13.5 [facility] Comment on above: Performed By: #### C BC #### [facility] [address] [place] [address] Dr. Sushant Pradhan PLT 192 103/ul Normal 150-450 [facility] Comment on above: Performed By: #### C BC #### [facility] [address] [place] [address] Dr. Sushant Pradhan RBC 4.24 106/ul Critically low 4.70-6.10 [facility] Comment on above: Performed By: #### C BC #### [facility] [address] [place], [place] [address] Dr. Sushant Pradhan WBC 6.3 103/ul Normal 4.0-11.0 [facility] Comment on above: Performed By: #### C BC #### [facility] [address] [place], [place] [address] CHEST W CONon [...] 2022 Lactate [Moles/Vol] 1.8 mmol/L Normal 0.4-2.0 [facility] Comment on above: Performed By: #### C MREP #### [facility] [address] [place] [address] Dr. Sushant Pradhan PROF 14(COMP METB)on 023 Albumin [Mass/Vol] 3.2 g/dL Critically low 3.4-5.0 [facility] Comment on above: Performed By: #### C BC #### [facility] [address] [place] [address] Dr. Sushant Pradhan Albumin/Globulin [Mass ratio] 0.7 {ratio} Normal [facility] Comment on above: Performed By: #### C BC #### [facility] [address] [place] [address] Dr. Sushant Pradhan ALP [Catalytic activity/Vol] 207 U/L Critically high 46-116 [facility] Comment on above: Performed By: #### C BC #### [facility] [address] [place] [address] Dr. Sushant Pradhan ALT [Catalytic activity/Vol] 22 U/L Normal 16-63 [facility] Comment on above: Performed By: #### C BC #### [facility] [address] [place] [address] Dr. Sushant Pradhan Anion gap [Moles/Vol] 11.9 mmol/L Normal [facility] Comment on above: Performed By: #### C BC #### [facility] [address] [address] [address] Sushant Pradhan AST [Catalytic activity/Vol] 23 U/L Normal 15-37 [facility] Comment on above: Performed By: #### C BC #### [facility] [address] [address] [address] Sushant Pradhan Bilirubin [Mass/Vol] 0.4 mg/dL Normal 0.2-1.0 [facility] Comment on above: Performed By: #### C BC #### [facility] [address] [place] [address] Dr. Sushant Pradhan Calcium [Mass/Vol] 9.2 mg/dL Normal 8.5-10.1 [facility] Comment on above: Performed By: #### C BC #### [facility] [address] [place] [address] Dr. Sushant Pradhan Chloride [Moles/Vol] 97 mmol/L Critically low 98-107 [facility] Comment on above: Performed By: #### C BC #### [facility] [address] [place] [address] Dr. Sushant Pradhan CO2 [Moles/Vol] 28.1 mmol/L Normal 21.0-32.0 [facility] Comment on above: Performed By: #### C BC #### [facility] [address] [address] [address] Sushant Pradhan Creatinine [Mass/Vol] 0.86 mg/dL Normal 0.70-1.30 [facility] Comment on above: Performed By: #### C BC #### [facility] [address] [place] [address] Dr. Sushant Pradhan EGFR-AF [place] >60 Normal >=60 [facility] Comment on above: Performed By: #### C BC #### [facility] [address] [address] [address] Sushant Pradhan EGFR-NON AF MONTSERRATIAN >60 Normal >=60 [facility] Comment on above: Performed By: #### C BC #### [facility] [address] [address] [address] Sushant Pradhan Globulin (S) [Mass/Vol] 4.8 g/dL Normal [facility] Comment on above: Performed By: #### C BC #### [facility] [address] [address] [address] Sushant Pradhan Glucose [Mass/Vol] 104 mg/dL Normal 74-106 [facility] Comment on above: Performed By: #### C BC #### [facility] [address] [address] [address] Sushant Pradhan Potassium [Moles/Vol] 4.0 mmol/L Normal 3.5-5.1 [facility] Comment on above: Performed By: #### C BC #### [facility] [address] [address] [address] Sushant Pradhan Protein [Mass/Vol] 8.0 g/dL Normal 6.4-8.2 [facility] Comment on above: Performed By: #### C BC #### [facility] [address] [address] [address] Sushant Pradhan Sodium [Moles/Vol] 133 mmol/L Critically low 136-145 [facility] Comment on above: Performed By: #### C BC #### [facility] [address] [address] [address] Sushant Pradhan Urea nitrogen [Mass/Vol] 6.0 mg/dL Critically low 7.0-18.0 [facility] Comment on above: Performed By: #### C BC #### [facility] [address] [address] [address] Sushant Pradhan Urea nitrogen/Creatinine [Mass ratio] 7.0 mg/mg Normal [facility] Comment on above: Performed By: #### C BC #### [facility] [address] [address] [address] Sushant Pradhan TROPONIN, HIGH SENSITIVITYon 08-27-2022 HSTROP 5.6 pg/mL Normal 4.0-76.1 [facility] Comment on above: Result Comment: CUT- OFF POINTS HAVE BEEN ESTABLISHED BASED ON THE FOURTH UNIVERSAL DEFINITIONS OF MYOCARDIAL INFARCTION. THE UPPER REFERENCE LIMIT (URL) OF TROPONIN, DEFINED THE 99TH PERCENTILE OF cTnI DISTRIBUTION IN A REFERENCE POPULATION, HAS BEEN CONFIRMED THE DECISION THRESHOLD FOR OK DIAGNOSIS. Performed By: #### C BC #### [facility] [address] [place] [address] Dr. Sushant Pradhan HSTROP 5.8 pg/mL Normal 4.0-76.1 [facility] Comment on above: Result Comment: CUT- OFF POINTS HAVE BEEN ESTABLISHED BASED ON THE FOURTH UNIVERSAL DEFINITIONS OF MYOCARDIAL INFARCTION. THE UPPER REFERENCE LIMIT (URL) OF TROPONIN, DEFINED THE 99TH PERCENTILE OF cTnI DISTRIBUTION IN A REFERENCE POPULATION, HAS BEEN CONFIRMED THE DECISION THRESHOLD FOR OK DIAGNOSIS. Performed By: #### C BC #### [facility] [address] [place] [address] Dr. Sushant Pradhan CARDIAC SONIA ADMITon 023 CK [Catalytic activity/Vol] 68 U/L Normal 39-308 [facility] Comment on above: Performed By: #### C MREP #### [facility] [address] [place] [address] Dr. Sushant Pradhan CK.MB [Mass/Vol] 1.23 ng/mL Normal <=3.60 [facility] Comment on above: Performed By: #### C MREP #### [facility] [address] [place] [address] Dr. Sushant Pradhan HSTROP 7.1 pg/mL Normal 4.0-76.1 [facility] Comment on above: Result Comment: CUT- OFF POINTS HAVE BEEN ESTABLISHED BASED ON THE FOURTH UNIVERSAL DEFINITIONS OF MYOCARDIAL INFARCTION. THE UPPER REFERENCE LIMIT (URL) OF TROPONIN, DEFINED THE 99TH PERCENTILE OF cTnI DISTRIBUTION IN A REFERENCE POPULATION, HAS BEEN CONFIRMED THE DECISION THRESHOLD FOR OK DIAGNOSIS. Performed By: #### C MREP #### [facility] [address] [place] [address] Dr. Sushant Pradhan DILAN 32 ng/mL Normal 16-96 [facility] Comment on above: Performed By: #### C MREP #### [facility] [address] [address] [address] Sushant Pradhan CBC AUTO DIFFon 06-18-2022 BASO # 0.0 103/ul Normal 0.0-0.1 [facility] Comment on above: Performed By: #### C BC #### [facility] [address] [place] [address] Dr. Sushant Pradhan Basophils/100 WBC (Bld) 0.5 % Normal 0.2-2.0 [facility] Comment on above: Performed By: #### C BC #### [facility] [address] [place] [address] Dr. Sushant Pradhan EO # 0.3 103/ul Normal 0.0-0.7 [facility] Comment on above: Performed By: #### C BC #### [facility] [address] [place] [address] Dr. Sushant Pradhan Eosinophils/100 WBC (Bld) 4.5 % Normal 0.9-7.0 [facility] Comment on above: Performed By: #### C BC #### [facility] [address] [place] [address] Dr. Sushant Pradhan Erythrocyte distribution width (RBC) [Ratio] 15.8 % Critically high 11.0-15.0 [facility] Comment on above: Performed By: #### C BC #### [facility] [address] [place] [address] Dr. Sushant Pradhan Hematocrit (Bld) [Volume fraction] 37.3 % Critically low 42.0-54.0 [facility] Comment on above: Performed By: #### C BC #### [facility] [address] [place] [address] Dr. Sushant Pradhan Hemoglobin (Bld) [Mass/Vol] 13.0 g/dL Critically low 14.0-18.0 [facility] Comment on above: Performed By: #### C BC #### [facility] [address] [place] [address] Dr. Sushant Pradhan IG # 0.02 10e3/ul Normal 0.00-0.03 [facility] Comment on above: Performed By: #### C BC #### [facility] [address] [place] [address] Dr. Sushant Pradhan IG % 0.3 % Normal 0.0-0.5 [facility] Comment on above: Performed By: #### C BC #### [facility] [address] [place] [address] Dr. Sushant Pradhan LYMPH # 0.8 103/ul Critically low 1.2-3.8 [facility] Comment on above: Performed By: #### C BC #### [facility] [address] [place] [address] Dr. Sushant Pradhan Lymphocytes/100 WBC (Bld) 13.9 % Critically low 20.5-60.0 [facility] Comment on above: Performed By: #### C BC #### [facility] [address] [place] [address] Dr. Sushant Pradhan MANUAL DIFF REQ NO Normal [facility] Comment on above: Performed By: #### C BC #### [facility] [address] [place] [address] Dr. Sushant Pradhan MCH (RBC) [Entitic mass] 33.0 pg Normal 25.9-34.0 [facility] Comment on above: Performed By: #### C BC #### [facility] [address] [place] [address] Dr. Sushant Pradhan MCHC (RBC) [Mass/Vol] 34.9 g/dL Normal 29.9-35.2 [facility] Comment on above: Performed By: #### C BC #### [facility] [address] [place] [address] Dr. Sushant Pradhan MCV (RBC) [Entitic vol] 94.7 fL Critically high 80.0-94.0 [facility] Comment on above: Performed By: #### C BC #### [facility] [address] [place] [address] Dr. Sushant Pradhan MONO # 0.7 103/ul Normal 0.3-0.8 [facility] Comment on above: Performed By: #### C BC #### [facility] [address] [address] [address] Sushant Pradhan Monocytes/100 WBC (Bld) 12.5 % Critically high 1.7-12.0 [facility] Comment on above: Performed By: #### C BC #### [facility] [address] [address] [address] Sushant Pradhan NEUT # 4.0 103/ul Normal 1.4-6.5 [facility] Comment on above: Performed By: #### C BC #### [facility] [address] [address] [address] Sushant Pradhan Neutrophils/100 WBC (Bld) 68.3 % Normal 43.0-75.0 [facility] Comment on above: Performed By: #### C BC #### [facility] [address] [address] [address] Sushant Pradhan Platelet mean volume (Bld) [Entitic vol] 9.1 fL Critically low 9.5-13.5 [facility] Comment on above: Performed By: #### C BC #### [facility] [address] [address] [address] Sushant Pradhan PLT 175 103/ul Normal 150-450 [facility] Comment on above: Performed By: #### C BC #### [facility] [address] [address] [address] Sushant Pradhan RBC 3.94 106/ul Critically low 4.70-6.10 [facility] Comment on above: Performed By: #### C BC #### [facility] [address] [address] [address] Sushant Pradhan WBC 5.8 103/ul Normal 4.0-11.0 [facility] Comment on above: Performed By: #### C BC #### [facility] [address] [address] [address] Sushant Pradhan PROF 14(COMP METB)on 023 Albumin [Mass/Vol] 2.9 g/dL Critically low 3.4-5.0 [facility] Comment on above: Performed By: #### C MREP #### [facility] [address] [place] [address] Dr. Sushant Pradhan Albumin/Globulin [Mass ratio] 0.8 {ratio} Normal [facility] Comment on above: Performed By: #### C MREP #### [facility] [address] [address] [address] Sushant Pradhan ALP [Catalytic activity/Vol] 133 U/L Critically high 46-116 [facility] Comment on above: Performed By: #### C MREP #### [facility] [address] [place] [address] Dr. Sushant Pradhan ALT [Catalytic activity/Vol] 15 U/L Critically low 16-63 [facility] Comment on above: Performed By: #### C MREP #### [facility] [address] [place] [address] Dr. Sushant Pradhan Anion gap [Moles/Vol] 16.5 mmol/L Normal [facility] Comment on above: Performed By: #### C MREP #### [facility] [address] [place] [address] Dr. Sushant Pradhan AST [Catalytic activity/Vol] 15 U/L Normal 15-37 [facility] Comment on above: Performed By: #### C MREP #### [facility] [address] [place] [address] Dr. Sushant Pradhan Bilirubin [Mass/Vol] 0.4 mg/dL Normal 0.2-1.0 [facility] Comment on above: Performed By: #### C MREP #### [facility] [address] [place] [address] Dr. Sushant Pradhan Calcium [Mass/Vol] 8.6 mg/dL Normal 8.5-10.1 [facility] Comment on above: Performed By: #### C MREP #### [facility] [address] [place] [address] Dr. Sushant Pradhan Chloride [Moles/Vol] 97 mmol/L Critically low 98-107 [facility] Comment on above: Performed By: #### C MREP #### [facility] [address] [place] [address] Dr. Sushant Pradhan CO2 [Moles/Vol] 22.3 mmol/L Normal 21.0-32.0 [facility] Comment on above: Performed By: #### C MREP #### [facility] [address] [place] [address] Dr. Sushant Pradhan Creatinine [Mass/Vol] 0.61 mg/dL Critically low 0.70-1.30 [facility] Comment on above: Performed By: #### C MREP #### [facility] [address] [place] [address] Dr. Sushant Pradhan EGFR-AF MONTSERRATIAN >60 Normal >=60 [facility] Comment on above: Performed By: #### C MREP #### [facility] [address] [place] [address] Dr. Sushant Pradhan EGFR-NON AF MONTSERRATIAN >60 Normal >=60 [facility] Comment on above: Performed By: #### C MREP #### [facility] [address] [place] [address] Dr. Sushant Pradhan Globulin (S) [Mass/Vol] 3.8 g/dL Normal [facility] Comment on above: Performed By: #### C MREP #### [facility] [address] [place] [address] Dr. Sushant Pradhan Glucose [Mass/Vol] 79 mg/dL Normal 74-106 [facility] Comment on above: Performed By: #### C MREP #### [facility] [address] [place] [address] Dr. Sushant Pradhan Potassium [Moles/Vol] 3.8 mmol/L Normal 3.5-5.1 [facility] Comment on above: Performed By: #### C MREP #### [facility] [address] [place] [address] Dr. Sushant Pradhan Protein [Mass/Vol] 6.7 g/dL Normal 6.4-8.2 [facility] Comment on above: Performed By: #### C MREP #### [facility] [address] [place] [address] Dr. Sushant Pradhan Sodium [Moles/Vol] 132 mmol/L Critically low 136-145 [facility] Comment on above: Performed By: #### C MREP #### [facility] [address] [address] [address] Sushant Pradhan Urea nitrogen [Mass/Vol] 5.0 mg/dL Critically low 7.0-18.0 [facility] Comment on above: Performed By: #### C MREP #### [facility] [id number] Sushant Pradhan Urea nitrogen/Creatinine [Mass ratio] 8.2 mg/mg Normal [facility] Comment on above: Performed By: #### C MREP #### [facility] [address] [address] [address] Sushant Pradhan XR CHEST 1 Von [...] JESSE RAMOS Date: 2022-06-18 10:42 Normal [facility] Basophils Auto (Bld) [#/Vol] Ordered By: Jackie Fraga on 06-17-2022 Basophils (Bld) [#/Vol] 0.0 10*3/uL 0.0-0.[address] [facility] Basophils/100 WBC Auto (Bld) Ordered By: Jackie Fraga on 06-17-2022 Basophils/100 WBC (Bld) 0.7 % . [facility] Creatinine and Glomerular fi ltration rate.predicted panel (S/P/Bld)Ordered By: Jackie Fraga on 06-17-2022 Creatinine [Mass/Vol] 0.91 mg/dL 0.64-1.27 [facility] Eosinophils Auto (Bld) [#/Vo l]Ordered By: Jackie Fraga on 06-17-2022 Eosinophils (Bld) [#/Vol] 0.2 10*3/uL 0.0-0.[address] [facility] Eosinophils/100 WBC Auto (Bl d)Ordered By: Jackie Fraga on 06-17-2022 Eosinophils/100 WBC (Bld) 3.5 % . [facility] Erythrocyte distribution wid th Auto (RBC) [Ratio]Ordered By: Jackie Fraga on 06-17-2022 Erythrocyte distribution width (RBC) [Ratio] 15.8 % 12.0-14.[address] [facility] Estimated glomerular filtrat ion rate (GFR) non- AmericanOrdered By: Jackie Fraga on 06-17-2022 GFR/1.73 sq M.predicted among non-blacks MDRD (S/P/Bld) [Vol rate/Area] > 60 mL/Min [facility] Hematocrit Auto (Bld) [Volum e fraction]Ordered By: Jackie Fraga on 06-17-2022 Hematocrit (Bld) [Volume fraction] 41.9 % 38.8-50.[address] [facility] Hemoglobin [Mass/volume] in BloodOrdered By: Jackie Fraga on 06-17-2022 Hemoglobin (Bld) [Mass/Vol] 13.8 g/dL 13.0-17.[address] [facility] Leukocytes [#/volume] correc chris for nucleated erythrocytes in Blood by Automated counOrdered By: Jackie Fraga on 06-17-2022 WBC corrected for nucl RBC Auto (Bld) [#/Vol] 6.1 10*3/uL 4.1-10.[address] [facility] Lymphocytes Auto (Bld) [#/Vo l]Ordered By: Jackie Fraga on 06-17-2022 Lymphocytes (Bld) [#/Vol] 1.0 10*3/uL 1.00-4.[address] [facility] Lymphocytes/100 WBC Auto (Bl d)Ordered By: Jackie Fraga on 06-17-2022 Lymphocytes/100 WBC (Bld) 16.6 % . [facility] MCH Auto (RBC) [Entitic mass ]Ordered By: Jackie Fraga on 06-17-2022 MCH (RBC) [Entitic mass] 32.9 pg 27.5-35.[address] [facility] MCHC Auto (RBC) [Mass/Vol]Or dered By: Jackie Fraga on 06-17-2022 MCHC (RBC) [Mass/Vol] 33.1 g/dL 32.5-35.6 [facility] MCV Auto (RBC) [Entitic vol] Ordered By: Jackie Fraga on 06-17-2022 MCV (RBC) [Entitic vol] 99.4 fL 83.5-[address] [facility] Monocytes Auto (Bld) [#/Vol] Ordered By: Jackie Fraga on 06-17-2022 Monocytes (Bld) [#/Vol] 0.8 10*3/uL 0.0-0.[address] [facility] Monocytes/100 WBC Auto (Bld) Ordered By: Jackie Fraga on 06-17-2022 Monocytes/100 WBC (Bld) 13.3 % . [facility] Neutrophils Auto (Bld) [#/Vo l]Ordered By: Jackie Fraga on 06-17-2022 Neutrophils (Bld) [#/Vol] 4.0 10*3/uL 1.8-7.[address] [facility] Neutrophils/100 WBC Auto (Bl d)Ordered By: Jackie Fraga on 06-17-2022 Neutrophils/100 WBC (Bld) 65.9 % . [facility] No Panel InformationOrdered By: Jackie Fraga on 06-17-2022 Estimated GFR () > 60 mL/Min [facility] Comment on above: GFR estimated refere nce range: According to KDOQI guidelines, <60 ml/min/1.73m2 is sufficient to diagnose a patient with chronic kidney disease. Pharmacy Creatinine Clearance (Chem 86.[address] [facility] Nucleated erythrocytes [Pres ence] in Blood by Automated countOrdered By: Jackie Fraga on 06-17-2022 Nucleated RBC Auto Ql (Bld) 0.2 /100{WBC} 0-0.[address] [facility] Platelet mean volume Auto (B ld) [Entitic vol]Ordered By: Jackie Fraga on 06-17-2022 Platelet mean volume (Bld) [Entitic vol] 7.7 fL 6.6-10.[address] [facility] Platelets Auto (Bld) [#/Vol] Ordered By: Jackie Fraga on 06-17-2022 Platelets (Bld) [#/Vol] 185 10*3/uL 150-[address] [facility] RBC Auto (Bld) [#/Vol]Ordere d By: Jackie Fraga on 06-17-2022 RBC (Bld) [#/Vol] 4.21 10*6/uL 3.90-5.60 [facility] Serum or plasma anion gap de terminationOrdered By: Jackie Fraga on 06-17-2022 Anion gap [Moles/Vol] 10.6 mmol/L 6.0-15.0 [facility] Serum or plasma calcium ledy urement (mass/volume)Ordered By: Jackie Fraga on 06-17-2022 Calcium [Mass/Vol] 8.6 mg/dL 8.2-10.2 [facility] Serum or plasma chloride carlyn surement (moles/volume)Ordered By: Jackie Fraga on 06-17-2022 Chloride [Moles/Vol] 99 mmol/L 95-114 [facility] Serum or plasma glucose ledy urement (mass/volume)Ordered By: Jackie Fraga on 06-17-2022 Glucose [Mass/Vol] 94 mg/dL 70-100 [facility] Comment on above: ADA recommended refe rence rangeRandom Glucose Reference Range is dependent on time and content of last meal. Glucose of more than 200 mg/dL in a nonstressed, ambulatory subject supports the diagnosis of Diabetes Mellitus. Serum or plasma potassium me asurement (moles/volume)Ordered By: Jackie Fraga on 06-17-2022 Potassium [Moles/Vol] 4.1 mmol/L 3.5-5.1 [facility] Serum or plasma sodium measu rement (moles/volume)Ordered By: Jackie Fraga on 06-17-2022 Sodium [Moles/Vol] 127 mmol/L 136-146 [facility] Serum or plasma total carbon dioxide measurement (moles/volume)Ordered By: Jackie Fraga on 06-17-2022 CO2 [Moles/Vol] 21.5 mmol/L 22.0-30.0 [facility] Serum or plasma urea nitroge n measurement (mass/volume)Ordered By: Jackie Fraga on 06-17-2022 Urea nitrogen [Mass/Vol] 10 mg/dL 9- [facility] TSH DL <= 0.005 mIU/L QnOrde red By: Jackie Fraga on 06-17-2022 TSH Qn 4.63 m[IU]/L 0.45-5.[address] [facility] WBC Auto (Bld) [#/Vol]Ordere d By: Jackie Fraga on 06-17-2022 WBC (Bld) [#/Vol] 6.1 10*3/uL 4.1-10.5 [facility] Amphetamine Screen Ql (U)Ord ered By: Edward Hinds on 06-16-2022 Amphetamines Ql (U) Negative Negative [facility] Barbiturates [Presence] in U rineOrdered By: Edward Hinds on 06-16-2022 Barbiturates Ql (U) Negative Negative [facility] Benzodiazepines [Presence] i n UrineOrdered By: Edward Hinds on 06-16-2022 Benzodiazepines Ql (U) Negative Negative [facility] Cannabinoids [Presence] in U rine by Screen methodOrdered By: Edward Hinds on 06-16-2022 Cannabinoids Screen Ql (U) Positive Negative [facility] Comment on above: These are unconfirme d results and should not be used for legal purposes. Drug Cut-Off Concentration: AMPH 1000 ng/mL ZUNILDA 200 ng/mL SHIVANI 200 ng/mL COCM 300 ng/mL OP 300 ng/mL PCP 25 ng/mL THC 20 ng/mL Laboratory - Drug toxicology Ordered By: Edward Hinds on 06-16-2022 Opiates Ql (U) Negative Negative [facility] Phencyclidine Screen Ql (U)O rdered By: Edward Hinds on 06-16-2022 Phencyclidine Ql (U) Negative Negative [facility] Urine cocaine detectionOrder ed By: Edward Hinds on 06-16-2022 Cocaine Ql (U) Negative Negative [facility] Activated partial thrombopla stin time (aPTT) in platelet poor plasma by coagulation aOrdered By: Varghese Duval on 06-15-2022 aPTT Coag (PPP) [Time] 35.2 s 25.1-36.[address] [facility] Basophils Auto (Bld) [#/Vol] Ordered By: Varghese Duval on 06-15-2022 Basophils (Bld) [#/Vol] 0.1 10*3/uL 0.0-0.[address] [facility] Basophils/100 WBC Auto (Bld) Ordered By: Varghese Duval on 06-15-2022 Basophils/100 WBC (Bld) 1.0 % . [facility] Bilirubin Test strip Ql (U)O rdered By: Varghese Duval on 06-15-2022 Bilirubin Ql (U) Negative Negative [facility] Color Auto (U)Ordered By: Tanya Duval on 06-15-2022 Color (U) Yellow Yellow [facility] Creatinine and Glomerular fi ltration rate.predicted panel (S/P/Bld)Ordered By: Varghese Duval on 06-15-2022 Creatinine [Mass/Vol] 0.76 mg/dL 0.64-1.27 [facility] Eosinophils Auto (Bld) [#/Vo l]Ordered By: Varghese Duval on 06-15-2022 Eosinophils (Bld) [#/Vol] 0.3 10*3/uL 0.0-0.[address] [facility] Eosinophils/100 WBC Auto (Bl d)Ordered By: Varghese Duval on 06-15-2022 Eosinophils/100 WBC (Bld) 4.9 % . [facility] Erythrocyte distribution wid th Auto (RBC) [Ratio]Ordered By: Varghese Duval on 06-15-2022 Erythrocyte distribution width (RBC) [Ratio] 15.9 % 12.0-14.[address] [facility] Estimated glomerular filtrat ion rate (GFR) non- AmericanOrdered By: Varghese Duval on 06-15-2022 GFR/1.73 sq M.predicted among non-blacks MDRD (S/P/Bld) [Vol rate/Area] > 60 mL/Min [facility] Hematocrit Auto (Bld) [Volum e fraction]Ordered By: Varghese Duval on 06-15-2022 Hematocrit (Bld) [Volume fraction] 42.5 % 38.8-50.[address] [facility] Hemoglobin [Mass/volume] in BloodOrdered By: Varghese Duval on 06-15-2022 Hemoglobin (Bld) [Mass/Vol] 14.3 g/dL 13.0-17.[address] [facility] Ketones Auto test strip (U) [Mass/Vol]Ordered By: Varghese Duval on 06-15-2022 Ketones (U) [Mass/Vol] Negative Negative [facility] Laboratory - CoagulationOrde red By: Varghese Duval on 06-15-2022 PT Coag (PPP) [Time] 10.7 s 9.0-12.9 [facility] Leukocytes [#/volume] correc chris for nucleated erythrocytes in Blood by Automated counOrdered By: Varghese Duval on 06-15-2022 WBC corrected for nucl RBC Auto (Bld) [#/Vol] 5.4 10*3/uL 4.1-10.[address] [facility] Lymphocytes Auto (Bld) [#/Vo l]Ordered By: Varghese Duval on 06-15-2022 Lymphocytes (Bld) [#/Vol] 1.0 10*3/uL 1.00-4.[address] [facility] Lymphocytes/100 WBC Auto (Bl d)Ordered By: Varghese Duval on 06-15-2022 Lymphocytes/100 WBC (Bld) 19.3 % . [facility] MCH Auto (RBC) [Entitic mass ]Ordered By: Varghese Duval on 06-15-2022 MCH (RBC) [Entitic mass] 33.2 pg 27.5-35.[address] [facility] MCHC Auto (RBC) [Mass/Vol]Or dered By: Varghese Duval on 06-15-2022 MCHC (RBC) [Mass/Vol] 33.5 g/dL 32.5-35.6 [facility] MCV Auto (RBC) [Entitic vol] Ordered By: Varghese Duval on 06-15-2022 MCV (RBC) [Entitic vol] 98.9 fL 83.5-[address] [facility] Monocytes Auto (Bld) [#/Vol] Ordered By: Varghese Duval on 06-15-2022 Monocytes (Bld) [#/Vol] 0.5 10*3/uL 0.0-0.[address] [facility] Monocytes/100 WBC Auto (Bld) Ordered By: Varghese Duval on 06-15-2022 Monocytes/100 WBC (Bld) 8.8 % . [facility] Neutrophils Auto (Bld) [#/Vo l]Ordered By: Varghese Duval on 06-15-2022 Neutrophils (Bld) [#/Vol] 3.6 10*3/uL 1.8-7.[address] [facility] Neutrophils/100 WBC Auto (Bl d)Ordered By: Varghese Duval on 06-15-2022 Neutrophils/100 WBC (Bld) 66.0 % . [facility] Nitrite Test strip Ql (U)Ord ered By: Varghese Duval on 06-15-2022 Nitrite Ql (U) Negative Negative [facility] No Panel InformationOrdered By: Varghese Duval on 06-15-2022 Estimated GFR () > 60 mL/Min [facility] Comment on above: GFR estimated refere nce range: According to KDOQI guidelines, <60 ml/min/1.73m2 is sufficient to diagnose a patient with chronic kidney disease. Pharmacy Creatinine Clearance (Chem N/A [facility] Nucleated erythrocytes [Pres ence] in Blood by Automated countOrdered By: Varghese Duval on 06-15-2022 Nucleated RBC Auto Ql (Bld) 0.2 /100{WBC} 0-0.[address] [facility] Platelet mean volume Auto (B ld) [Entitic vol]Ordered By: Varghese Duval on 06-15-2022 Platelet mean volume (Bld) [Entitic vol] 7.4 fL 6.6-10.[address] [facility] Platelet poor plasma interna tional normalized ratio (INR) by coagulation assay (relatOrdered By: Varghese Duval on 06-15-2022 INR Coag (PPP) [Relative time] 0.9 {INR} [facility] Comment on above: INR Therapeutic Rang e [...] 06-15-2022 Platelets (Bld) [#/Vol] 212 10*3/uL 150-[address] [facility] Protein Auto test strip (U) [Mass/Vol]Ordered By: Varghese Duval on 06-15-2022 Protein (U) [Mass/Vol] Negative Negative [facility] RBC Auto (Bld) [#/Vol]Ordere d By: Varghese Duval on 06-15-2022 RBC (Bld) [#/Vol] 4.30 10*6/uL 3.90-5.60 [facility] Serum or plasma anion gap de terminationOrdered By: Varghese Duval on 06-15-2022 Anion gap [Moles/Vol] 14.4 mmol/L 6.0-15.0 [facility] Serum or plasma calcium ledy urement (mass/volume)Ordered By: Varghese Duval on 06-15-2022 Calcium [Mass/Vol] 8.5 mg/dL 8.2-10.2 [facility] Serum or plasma chloride carlyn surement (moles/volume)Ordered By: Varghese Duval on 06-15-2022 Chloride [Moles/Vol] 98 mmol/L 95-114 [facility] Serum or plasma glucose ledy urement (mass/volume)Ordered By: Varghese Duval on 06-15-2022 Glucose [Mass/Vol] 74 mg/dL 70-100 [facility] Comment on above: ADA recommended refe rence rangeRandom Glucose Reference Range is dependent on time and content of last meal. Glucose of more than 200 mg/dL in a nonstressed, ambulatory subject supports the diagnosis of Diabetes Mellitus. Serum or plasma potassium me asurement (moles/volume)Ordered By: Varghese Duval on 06-15-2022 Potassium [Moles/Vol] 4.2 mmol/L 3.5-5.1 [facility] Serum or plasma sodium measu rement (moles/volume)Ordered By: Varghese Duval on 06-15-2022 Sodium [Moles/Vol] 129 mmol/L 136-146 [facility] Serum or plasma total carbon dioxide measurement (moles/volume)Ordered By: Varghese Duval on 06-15-2022 CO2 [Moles/Vol] 20.8 mmol/L 22.0-30.0 [facility] Serum or plasma urea nitroge n measurement (mass/volume)Ordered By: Varghese Duval on 06-15-2022 Urea nitrogen [Mass/Vol] 4 mg/dL 9-[address] [facility] Specific gravity Auto test s trip (U) [Rel density]Ordered By: Varghese Duval on 06-15-2022 Specific gravity (U) [Rel density] 1.008 1.001-1.[address] [facility] Urine clarity by refractomet ry automatedOrdered By: Varghese Duval 06-15-2022 Clarity Refractometry automated (U) Clear Clear [facility] Urine glucose measurement by automated test strip (mass/volume)Ordered By: Varghese Duval on 06-15-2022 Glucose Auto test strip (U) [Mass/Vol] Normal mg/dL Normal [facility] Urine hemoglobin detection b y automated test stripOrdered By: Varghese Duval on 06-15-2022 Hemoglobin Auto test strip Ql (U) Negative Negative [facility] Urine leukocyte esterase det ection by automated test stripOrdered By: Varghese Duval on 06-15-2022 Leukocyte esterase Auto test strip Ql (U) Negative Negative [facility] Urobilinogen Auto test strip (U) [Mass/Vol]Ordered By: Varghese Duval on 06-15-2022 Urobilinogen (U) [Mass/Vol] Normal mg/dL Normal [facility] WBC Auto (Bld) [#/Vol]Ordere d By: Varghese Duval on 06-15-2022 WBC (Bld) [#/Vol] 5.4 10*3/uL 4.1-10.5 [facility] pH Auto test strip (U)Ordere d By: Varghese Duval on 06-15-2022 pH (U) 5.5 [pH] 5.0-9.[address] [facility] CT chest w conon 06-01-2022 CT chest w con [facility] [employer] Other CT chest w con [facility] [place] [facility] [employer] Other CT chest w con [address] [place] [address] [place] [address] No [facility] Other CT chest w con CT Scan Report [employer] Other CT chest w con Signed [employer] Other CT chest w con Patient: Gustavo Echols N MR#: [id number] [employer] Other CT chest w con [address] [employer] [address] chest w con : 1965 Acct:[id number] [employer] Other CT chest w con Age/Sex: 57 / M ADM Date: 06/01/[address] [employer] [address] chest w con Loc: CT Room: Type: [facility] [employer] Other CT chest w con Attending Dr: Rachid Chase MD [employer] Other CT chest w con Copies to: Rachid whitlock MD [employer] Other CT chest w con Ordering Provider: Narinder Chase MD [employer] Other CT chest w con Date of Service: 06/01/[address] [employer] [address] chest w con CT/CT chest w con: C34.[address] [employer] Other [address] chest w con CT chest withcontrast [employer] Other CT chest w con TECHNIQUE: Axial adore ging with 2-D reconstruction. 83 cc of [id number] CT exam was performed [employer] Other CT chest w con using one or more th e following dose reduction techniques: Automated exposure control, adjustment of [employer] Other CT chest w con the MA and/or Kv according to patient size, or use of the iterative reconstruction technique. [employer] Other CT chest w con History: History of lung cancer. Chest tightness. Shortness of breath. [employer] Other CT chest w con COMPARISON: 04/10/[address] [employer] [address] chest w con No thyroid abnormali ty [id number] present on the left. [employer] Other CT chest w con Central airway is patent. [employer] Other CT chest w con No esophageal abnormality identified. [employer] Other CT chest w con Heart is not enlarge d. No pericardial effusion is seen. [employer] Other CT chest w con Nonenlarged mediasti nal lymph nodes identified. No hilar mass or adenopathy is seen. [employer] Other CT chest w con No thoracic aortic aneurysm is seen. [employer] Other CT chest w con No lung nodules identified. [employer] Other CT chest w con No infiltrate or congestion identified. Developing medial right middle lobe atelectasis. Large [employer] Other CT chest w con right pleural effusi on redemonstrated. This is similar to prior examination. No pneumothorax seen. [employer] Other CT chest w con Emphysematous change s redemonstrated. [employer] Other CT chest w con No chest wall abnormality seen. The bony structures are intact. [employer] Other CT chest w con Images of the upper abdomen are noncontributory. [employer] Other CT chest w con C T/CT chest w con [employer] Other CT chest w con IMPRESSION: Developi ng medial right middle lobe atelectasis. Continued large right pleural [employer] Other CT chest w con effusion. Emphysema. [employer] Other CT chest w con Impression dictated by: Franklin Gomes M.D.06/01/2022 3:20 PM [employer] Other CT chest w con Dictation Location: [facility] [employer] [address] chest w con Transcribed By: PWS 06/01/[address] [employer] [address] chest w con Dictated By: Franklin Gomes DO 06/01/[address] [employer] [address] chest w con Signed By: [employer] Other CT chest w con 06/01/22 1520 [employer] Other Creatinine (Bld) [Mass/Vol]O rdered By: Rachid Chase on 06-01-2022 Creatinine [Mass/Vol] 0.8 mg/dL 0.6-1.3 [facility] Comment on above: ER/ESD physician is notified/shown all ISTAT results.Critical values may be confirmed by laboratory testing ifdeemed necessary by ER attending doctor. No Panel InformationOrdered By: Rachid Chase on 06-01-2022 POC Estimated GFR > [address] [facility] Comment on above: GFR estimated refere nce range: According to KDOQI guidelines, <60 ml/min/1.73m2 is sufficient to diagnose a patient with chronic kidney disease. POC Estimated GFR Non- Amer > [address] [facility] Activated partial thrombopla stin time (aPTT) in platelet poor plasma by coagulation aOrdered By: Estela Varma on 04-18-2022 aPTT Coag (PPP) [Time] 44.4 s 25.1-36.[address] [facility] Laboratory - CoagulationOrde red By: Estela Varma on 04-18-2022 PT Coag (PPP) [Time] 11.2 s 9.0-12.9 [facility] Platelet poor plasma interna tional normalized ratio (INR) by coagulation assay (relatOrdered By: Estela Varma on 04-18-2022 INR Coag (PPP) [Relative time] 1.0 {INR} [facility] Comment on above: INR Therapeutic Rang e [...] 04-18-2022 Platelets (Bld) [#/Vol] 158 10*3/uL 150-[address] [facility] Bacterial blood cultureOrder ed By: Tez Irene on 04-15-2022 Bacteria identified Cx Nom (Bld) NO GROWTH [address] [facility] Bacteria identified Anaer cx Nom (Unsp spec)Ordered By: Tez Irene on 04-14-2022 Anaerobic microbial culture No Anaerobes Isolated [address] [facility] ABO and Rh group post transf usion reaction Nom (Bld)Ordered By: Tez Irene on 04-12-2022 Microscopic observation Gram stain Nom (Unsp spec) [facility] Aerobic cultureOrdered By: Krystina Irene on 04-11-2022 Bacteria identified Aer cx Nom (Unsp spec) No Growth [address] [facility] Anaerobic cultureOrdered By: Tez Irene on 04-11-2022 Bacteria identified Anaer cx Nom (Unsp spec) No Anaerobes Isolated [address] [facility] Body fluid differential cell countOrdered By: Tez Irene on 04-11-2022 Differential panel (Body fld) 4 % [facility] Comment on above: The reference interv al and other method performance specifications have not been established for this body fluid. The test result must be integrated into the clinical context for interpretation. Differential panel (Body fld) 0 % [facility] Comment on above: The reference interv al and other method performance specifications have not been established for this body fluid. The test result must be integrated into the clinical context for interpretation. Body fluid protein measureme nt (mass/volume)Ordered By: Tez Irene on 04-11-2022 Protein (Body fld) [Mass/Vol] 3.8 g/dL [facility] Cells Counted Total [#] in B sarah fluidOrdered By: Tez Irene on 04-11-2022 Cells Counted Total (Body fld) [#] 1147 /uL [facility] Comment on above: The reference interv al and other method performance specifications have not been established for this body fluid. The test result must be integrated into the clinical context for interpretation. Color of Spun Body fluidOrde red By: Tez Irene on 04-11-2022 Color (Spun body fld) Straw [facility] Comment on above: The reference interv al and other method performance specifications have not been established for this body fluid. The test result must be integrated into the clinical context for interpretation. Determination of appearance of body fluidOrdered By: Tez Irene on 04-11-2022 Appearance (Body fld) Hazy [facility] Comment on above: The reference interv al and other method performance specifications have not been established for this body fluid. The test result must be integrated into the clinical context for interpretation. Erythrocytes [#/volume] in B sarah fluid by Automated countOrdered By: Tez Irene on 04-11-2022 RBC Auto (Body fld) [#/Vol] 76747 mm^[address] [facility] Comment on above: The reference interv al and other method performance specifications have not been established for this body fluid. The test result must be integrated into the clinical context for interpretation. Evaluation of color of body fluidOrdered By: Tez Irene on 04-11-2022 Color (Body fld) Straw [facility] Comment on above: The reference interv al and other method performance specifications have not been established for this body fluid. The test result must be integrated into the clinical context for interpretation. Gram stain for investigation of transfusion reactionOrdered By: eTz Irene on 04-11-2022 Microscopic observation Gram stain Nom (Unsp spec) [facility] Lactate dehydrogenase measur ement (enzymatic activity/volume)Ordered By: Tez Irene on 04-11-2022 LDH (Unsp spec) [Catalytic activity/Vol] 88 [IU]/mL [facility] Comment on above: No reference range e stablished LDH (Unsp spec) [Catalytic activity/Vol] 100 U/L 45-[address] [facility] Manual body fluid eosinophil s/100 leukocytesOrdered By: Tez Irene on 04-11-2022 Eosinophils/100 WBC Manual cnt (Body fld) 0 /100{WBC} 0-[address] [facility] Manual body fluid lymphocyte s/100 leukocytesOrdered By: Tez Irene on 04-11-2022 Lymphocytes/100 WBC Manual cnt (Body fld) 61 % [facility] Comment on above: The reference interv al and other method performance specifications have not been established for this body fluid. The test result must be integrated into the clinical context for interpretation. Neutrophils/100 WBC Manual c nt (Body fld)Ordered By: Tez Irene on 04-11-2022 Neutrophils/100 WBC (Body fld) 35 % [facility] Comment on above: The reference interv al and other method performance specifications have not been established for this body fluid. The test result must be integrated into the clinical context for interpretation. Troponin I.cardiac [Mass/vol ume] in Serum or Plasma by High sensitivity methodOrdered By: Tez Irene on 04-11-2022 Troponin I.cardiac High sensitivity method [Mass/Vol] 5 pg/mL 0-[address] [facility] Albumin [Mass/volume] in Ser um or PlasmaOrdered By: Kali Longo on 04-10-2022 Albumin [Mass/Vol] 3.3 g/dL 3.2-5.5 [facility] Albumin [Mass/volume] in Ser um or PlasmaOrdered By: Estela Varma on 04-10-2022 Albumin [Mass/Vol] 3.4 g/dL 3.2-5.5 [facility] Bacterial blood cultureOrder ed By: Tez Irene on 04-10-2022 Bacteria identified Cx Nom (Bld) NO GROWTH [address] [facility] Basophils Auto (Bld) [#/Vol] Ordered By: Kali Longo on 04-10-2022 Basophils (Bld) [#/Vol] 0.1 10*3/uL 0.0-0.[address] [facility] Basophils Auto (Bld) [#/Vol] Ordered By: Estela Varma on 04-10-2022 Basophils (Bld) [#/Vol] 0.1 10*3/uL 0.0-0.[address] [facility] Basophils/100 WBC Auto (Bld) Ordered By: Kali Longo on 04-10-2022 Basophils/100 WBC (Bld) 1.0 % . [facility] Basophils/100 WBC Auto (Bld) Ordered By: Estela Varma on 04-10-2022 Basophils/100 WBC (Bld) 0.9 % . [facility] Creatinine and Glomerular fi ltration rate.predicted panel (S/P/Bld)Ordered By: Kali Longo on 04-10-2022 Creatinine [Mass/Vol] 0.86 mg/dL 0.64-1.27 [facility] Creatinine and Glomerular fi ltration rate.predicted panel (S/P/Bld)Ordered By: Estela Varma on 04-10-2022 Creatinine [Mass/Vol] 0.92 mg/dL 0.64-1.27 [facility] Eosinophils Auto (Bld) [#/Vo l]Ordered By: Kali Longo on 04-10-2022 Eosinophils (Bld) [#/Vol] 0.1 10*3/uL 0.0-0.[address] [facility] Eosinophils Auto (Bld) [#/Vo l]Ordered By: Estela Varma on 04-10-2022 Eosinophils (Bld) [#/Vol] 0.2 10*3/uL 0.0-0.[address] [facility] Eosinophils/100 WBC Auto (Bl d)Ordered By: Kali Longo on 04-10-2022 Eosinophils/100 WBC (Bld) 1.5 % . [facility] Eosinophils/100 WBC Auto (Bl d)Ordered By: Estela Varma on 04-10-2022 Eosinophils/100 WBC (Bld) 2.9 % . [facility] Erythrocyte distribution wid th Auto (RBC) [Ratio]Ordered By: Kali Longo on 04-10-2022 Erythrocyte distribution width (RBC) [Ratio] 14.1 % 12.0-14.[address] [facility] Erythrocyte distribution wid th Auto (RBC) [Ratio]Ordered By: Estela Varma on 04-10-2022 Erythrocyte distribution width (RBC) [Ratio] 14.6 % 12.0-14.[address] [facility] Estimated glomerular filtrat ion rate (GFR) non- AmericanOrdered By: Kali Longo on 04-10-2022 GFR/1.73 sq M.predicted among non-blacks MDRD (S/P/Bld) [Vol rate/Area] > 60 mL/Min [facility] Estimated glomerular filtrat ion rate (GFR) non- AmericanOrdered By: Estela Varma on 04-10-2022 GFR/1.73 sq M.predicted among non-blacks MDRD (S/P/Bld) [Vol rate/Area] > 60 mL/Min [facility] Globulin Calc (S) [Mass/Vol] Ordered By: Kali Longo on 04-10-2022 Globulin (S) [Mass/Vol] 3.1 g/dL [facility] Globulin Calc (S) [Mass/Vol] Ordered By: Estela Varma on 04-10-2022 Globulin (S) [Mass/Vol] 3.1 g/dL [facility] Hematocrit Auto (Bld) [Volum e fraction]Ordered By: Kali Longo on 04-10-2022 Hematocrit (Bld) [Volume fraction] 44.7 % 38.8-50.[address] [facility] Hematocrit Auto (Bld) [Volum e fraction]Ordered By: Estela Varma on 04-10-2022 Hematocrit (Bld) [Volume fraction] 46.1 % 38.8-50.[address] [facility] Hemoglobin [Mass/volume] in BloodOrdered By: Kali Longo on 04-10-2022 Hemoglobin (Bld) [Mass/Vol] 15.2 g/dL 13.0-17.[address] [facility] Hemoglobin [Mass/volume] in BloodOrdered By: Estela Varma on 04-10-2022 Hemoglobin (Bld) [Mass/Vol] 15.5 g/dL 13.0-17.[address] [facility] Laboratory - Chemistry and C hemistry - challengeOrdered By: Kali Longo on 04-10-2022 Natriuretic peptide B (Bld) [Mass/Vol] 19.0 pg/mL 5-[address] [facility] Laboratory - Hematology and Cell countsOrdered By: Kali Longo on 04-10-2022 Nucleated RBC/100 WBC (Bld) [Ratio] 0.1 % 0-0.[address] [facility] Laboratory - Hematology and Cell countsOrdered By: Estela Varma on 04-10-2022 Nucleated RBC/100 WBC (Bld) [Ratio] 0.1 % 0-0.[address] [facility] Leukocytes [#/volume] in Blo od by Automated countOrdered By: Kali Longo on 04-10-2022 WBC (Bld) [#/Vol] 6.1 10*3/uL 4.5-11.0 [facility] Leukocytes [#/volume] in Blo od by Automated countOrdered By: Estela Varma on 04-10-2022 WBC (Bld) [#/Vol] 6.3 10*3/uL 4.5-11.0 [facility] Lymphocytes Auto (Bld) [#/Vo l]Ordered By: Kali Longo on 04-10-2022 Lymphocytes (Bld) [#/Vol] 0.9 10*3/uL 1.00-4.[address] [facility] Lymphocytes Auto (Bld) [#/Vo l]Ordered By: Estela Varma on 04-10-2022 Lymphocytes (Bld) [#/Vol] 1.0 10*3/uL 1.00-4.[address] [facility] Lymphocytes/100 WBC Auto (Bl d)Ordered By: Kali Longo on 04-10-2022 Lymphocytes/100 WBC (Bld) 14.2 % . [facility] Lymphocytes/100 WBC Auto (Bl d)Ordered By: Estela Varma on 04-10-2022 Lymphocytes/100 WBC (Bld) 16.2 % . [facility] MCH Auto (RBC) [Entitic mass ]Ordered By: Kali Longo on 04-10-2022 MCH (RBC) [Entitic mass] 32.9 pg 27.5-35.[address] [facility] MCH Auto (RBC) [Entitic mass ]Ordered By: Estela Varma on 04-10-2022 MCH (RBC) [Entitic mass] 32.6 pg 27.5-35.[address] [facility] MCHC Auto (RBC) [Mass/Vol]Or dered By: Kali Longo on 04-10-2022 MCHC (RBC) [Mass/Vol] 33.9 g/dL 32.5-35.6 [facility] MCHC Auto (RBC) [Mass/Vol]Or dered By: Estela Varma on 04-10-2022 MCHC (RBC) [Mass/Vol] 33.6 g/dL 32.5-35.6 [facility] MCV Auto (RBC) [Entitic vol] Ordered By: Kali Longo on 04-10-2022 MCV (RBC) [Entitic vol] 96.9 fL 83.5-[address] [facility] MCV Auto (RBC) [Entitic vol] Ordered By: Estela Varma on 04-10-2022 MCV (RBC) [Entitic vol] 97.2 fL 83.5-[address] [facility] Monocytes Auto (Bld) [#/Vol] Ordered By: Kali Longo on 04-10-2022 Monocytes (Bld) [#/Vol] 0.6 10*3/uL 0.0-0.[address] [facility] Monocytes Auto (Bld) [#/Vol] Ordered By: Estela Varma on 04-10-2022 Monocytes (Bld) [#/Vol] 0.5 10*3/uL 0.0-0.[address] [facility] Monocytes/100 WBC Auto (Bld) Ordered By: Kali Longo on 04-10-2022 Monocytes/100 WBC (Bld) 9.9 % . [facility] Monocytes/100 WBC Auto (Bld) Ordered By: Estela Varma on 04-10-2022 Monocytes/100 WBC (Bld) 8.6 % . [facility] Neutrophils Auto (Bld) [#/Vo l]Ordered By: Kali Longo on 04-10-2022 Neutrophils (Bld) [#/Vol] 4.5 10*3/uL 1.8-7.[address] [facility] Neutrophils Auto (Bld) [#/Vo l]Ordered By: Estela Varma on 04-10-2022 Neutrophils (Bld) [#/Vol] 4.5 10*3/uL 1.8-7.[address] [facility] Neutrophils/100 WBC Auto (Bl d)Ordered By: Kali Longo on 04-10-2022 Neutrophils/100 WBC (Bld) 73.4 % . [facility] Neutrophils/100 WBC Auto (Bl d)Ordered By: Estela Varma on 04-10-2022 Neutrophils/100 WBC (Bld) 71.4 % . [facility] No Panel InformationOrdered By: Kali Longo on 04-10-2022 D-Dimer Quantitative (PE/DVT) 529 ng/mL 0-[address] [facility] Comment on above: The reference range for [...] conditions. Estimated GFR () > 60 mL/Min [facility] Comment on above: GFR estimated refere nce range: According to KDOQI guidelines, <60 ml/min/1.73m2 is sufficient to diagnose a patient with chronic kidney disease. Pharmacy Creatinine Clearance (Chem 92.[address] [facility] No Panel InformationOrdered By: Estela Varma on 04-10-2022 Estimated GFR () > 60 mL/Min [facility] Comment on above: GFR estimated refere nce range: According to KDOQI guidelines, <60 ml/min/1.73m2 is sufficient to diagnose a patient with chronic kidney disease. Pharmacy Creatinine Clearance (Chem 89.[address] [facility] Platelet mean volume Auto (B ld) [Entitic vol]Ordered By: Kali Longo on 04-10-2022 Platelet mean volume (Bld) [Entitic vol] 7.0 fL 6.6-10.[address] [facility] Platelet mean volume Auto (B ld) [Entitic vol]Ordered By: Estela Varma on 04-10-2022 Platelet mean volume (Bld) [Entitic vol] 7.4 fL 6.6-10.[address] [facility] Platelets Auto (Bld) [#/Vol] Ordered By: Kali Longo on 04-10-2022 Platelets (Bld) [#/Vol] 242 10*3/uL 150-[address] [facility] Platelets Auto (Bld) [#/Vol] Ordered By: Estela Varma on 04-10-2022 Platelets (Bld) [#/Vol] 239 10*3/uL 150-[address] [facility] Protein [Mass/volume] in Ser um or PlasmaOrdered By: Kali Longo on 04-10-2022 Protein [Mass/Vol] 6.4 g/dL 6.1-7.9 [facility] Protein [Mass/volume] in Ser um or PlasmaOrdered By: Estela Varma on 04-10-2022 Protein [Mass/Vol] 6.5 g/dL 6.1-7.9 [facility] RBC Auto (Bld) [#/Vol]Ordere d By: Kali Longo on 04-10-2022 RBC (Bld) [#/Vol] 4.61 10*6/uL 3.90-5.60 [facility] RBC Auto (Bld) [#/Vol]Ordere d By: Estela Varma on 04-10-2022 RBC (Bld) [#/Vol] 4.75 10*6/uL 3.90-5.60 [facility] Serum or plasma alanine glynn otransferase measurement without P-5'-P (enzymatic activiOrdered By: Kali Longo on 04-10-2022 ALT No additional P-5'-P [Catalytic activity/Vol] 13 U/L [facility] Serum or plasma alanine glynn otransferase measurement without P-5'-P (enzymatic activiOrdered By: Estela Varma on 04-10-2022 ALT No additional P-5'-P [Catalytic activity/Vol] 14 U/L [facility] Serum or plasma albumin/glob ulin mass ratioOrdered By: Kali Longo on 04-10-2022 Albumin/Globulin [Mass ratio] 1.1 {ratio} [facility] Serum or plasma albumin/glob ulin mass ratioOrdered By: Estela Varma on 04-10-2022 Albumin/Globulin [Mass ratio] 1.1 {ratio} [facility] Serum or plasma alkaline abhijit sphatase measurement (enzymatic activity/volume)Ordered By: Kali Longo on 04-10-2022 ALP [Catalytic activity/Vol] 127 U/L [facility] Serum or plasma alkaline abhijit sphatase measurement (enzymatic activity/volume)Ordered By: Estela Varma on 04-10-2022 ALP [Catalytic activity/Vol] 128 U/L [facility] Serum or plasma anion gap de terminationOrdered By: Kali Longo on 04-10-2022 Anion gap [Moles/Vol] 15.8 mmol/L 6.0-15.0 [facility] Serum or plasma anion gap de terminationOrdered By: Estela Varma on 04-10-2022 Anion gap [Moles/Vol] 17.3 mmol/L 6.0-15.0 [facility] Serum or plasma aspartate am inotransferase measurement (enzymatic activity/volume)Ordered By: Kali Longo on 04-10-2022 AST [Catalytic activity/Vol] 19 U/L [facility] Serum or plasma aspartate am inotransferase measurement (enzymatic activity/volume)Ordered By: Estela Varma on 04-10-2022 AST [Catalytic activity/Vol] 19 U/L [facility] Serum or plasma calcium ledy urement (mass/volume)Ordered By: Kali Longo on 04-10-2022 Calcium [Mass/Vol] 8.5 mg/dL 8.2-10.2 [facility] Serum or plasma calcium ledy urement (mass/volume)Ordered By: Etsela Varma on 04-10-2022 Calcium [Mass/Vol] 8.5 mg/dL 8.2-10.2 [facility] Serum or plasma carcinoembry onic antigen measurement (mass/volume)Ordered By: Estela Varma on 04-10-2022 Carcinoembryonic Ag [Mass/Vol] 10.5 ng/mL 0.0-3.[address] [facility] Serum or plasma chloride carlyn surement (moles/volume)Ordered By: Kali Longo on 04-10-2022 Chloride [Moles/Vol] 95 mmol/L 95-114 [facility] Serum or plasma chloride carlyn surement (moles/volume)Ordered By: Estela Varma on 04-10-2022 Chloride [Moles/Vol] 98 mmol/L 95-114 [facility] Serum or plasma glucose ledy urement (mass/volume)Ordered By: Kali Longo on 04-10-2022 Glucose [Mass/Vol] 75 mg/dL 70-100 [facility] Comment on above: ADA recommended refe rence rangeRandom Glucose Reference Range is dependent on time and content of last meal. Glucose of more than 200 mg/dL in a nonstressed, ambulatory subject supports the diagnosis of Diabetes Mellitus. Serum or plasma glucose ledy urement (mass/volume)Ordered By: Estela Varma on 04-10-2022 Glucose [Mass/Vol] 73 mg/dL 70-100 [facility] Comment on above: ADA recommended refe rence rangeRandom Glucose Reference Range is dependent on time and content of last meal. Glucose of more than 200 mg/dL in a nonstressed, ambulatory subject supports the diagnosis of Diabetes Mellitus. Serum or plasma potassium me asurement (moles/volume)Ordered By: Kali Longo on 04-10-2022 Potassium [Moles/Vol] 4.2 mmol/L 3.5-5.1 [facility] Serum or plasma potassium me asurement (moles/volume)Ordered By: Estela Varma on 04-10-2022 Potassium [Moles/Vol] 4.0 mmol/L 3.5-5.1 [facility] Serum or plasma sodium measu rement (moles/volume)Ordered By: Kali Longo on 04-10-2022 Sodium [Moles/Vol] 130 mmol/L 136-146 [facility] Serum or plasma sodium measu rement (moles/volume)Ordered By: Estela Varma on 04-10-2022 Sodium [Moles/Vol] 131 mmol/L 136-146 [facility] Serum or plasma total biliru bin measurement (mass/volume)Ordered By: Kali Longo on 04-10-2022 Bilirubin [Mass/Vol] 0.6 mg/dL 0.3-1.2 [facility] Serum or plasma total biliru bin measurement (mass/volume)Ordered By: Estela Varma on 04-10-2022 Bilirubin [Mass/Vol] 0.7 mg/dL 0.3-1.2 [facility] Serum or plasma total carbon dioxide measurement (moles/volume)Ordered By: Kali Longo on 04-10-2022 CO2 [Moles/Vol] 23.4 mmol/L 22.0-30.0 [facility] Serum or plasma total carbon dioxide measurement (moles/volume)Ordered By: Estela Varma on 04-10-2022 CO2 [Moles/Vol] 19.7 mmol/L 22.0-30.0 [facility] Serum or plasma urea nitroge n measurement (mass/volume)Ordered By: Kali Longo on 04-10-2022 Urea nitrogen [Mass/Vol] 7 mg/dL 02-[address] [facility] Serum or plasma urea nitroge n measurement (mass/volume)Ordered By: Estela Varma on 04-10-2022 Urea nitrogen [Mass/Vol] 7 mg/dL 02-[address] [facility] TSH DL <= 0.005 mIU/L QnOrde red By: Estela Varma on 04-10-2022 TSH Qn 2.57 m[IU]/L 0.45-5.[address] [facility] Troponin I.cardiac [Mass/vol ume] in Serum or Plasma by High sensitivity methodOrdered By: Kali Longo on 04-10-2022 Troponin I.cardiac High sensitivity method [Mass/Vol] 5 pg/mL [facility] Creatinine and Glomerular fi ltration rate.predicted panel (S/P/Bld)Ordered By: Estela Varma on 01-03-2022 Creatinine [Mass/Vol] 0.69 mg/dL 0.64-1.27 [facility] Estimated glomerular filtrat ion rate (GFR) non- AmericanOrdered By: Estela Varma on 01-03-2022 GFR/1.73 sq M.predicted among non-blacks MDRD (S/P/Bld) [Vol rate/Area] > 60 mL/Min [facility] No Panel InformationOrdered By: Estela Varma on 01-03-2022 Estimated GFR () > 60 mL/Min [facility] Comment on above: GFR estimated refere nce range: According to KDOQI guidelines, <60 ml/min/1.73m2 is sufficient to diagnose a patient with chronic kidney disease. Pharmacy Creatinine Clearance (Chem 122.[address] [facility] Serum or plasma urea nitroge n measurement (mass/volume)Ordered By: Estela Varma on 01-03-2022 Urea nitrogen [Mass/Vol] 3 mg/dL 02-[address] [facility] Office Visit (Cardiology)on 11-29-2021 Follow-up visit Diagnoses/Problems Assessed Lung cancer (162.9) (C34.90) Chest pain (786.50) (R07.9) Former smoker (V15.82) (Z87.891) quit 2020 1ppd Body mass index (BMI) of 20.0 to 20.9 in adult (V85.1) (Z68.20) COPD (chronic obstructive pulmonary disease) (496) (J44.9) Orders Health Maintenance Depression Follow-up Visit Outpatient Follow-up Status: Complete Done: [id number] SocHx: Former smoker Tobacco Use Screening; Status:Complete; Done: [id number] Patient Instructions By signing my name below, [...] Complaint Follow up Heart Cath results. 56-year-old Afro-[place] gentleman returns with chief complaints of chest [...] catheterization performed this year Recommendations: We did mortgage loan counselor him on seeking further assistance in [...] negative for complaint. Vitals Vital Signs Recorded: [id number] 09:05AM Heart Rate96, R Radial Eugxjase266, RUE, Sitting Rgybqthzf90, RUE, Sitting Blood Pressure Cuff SizeAdult Height6 ft Sexngo037 lb 8 oz BMI Sxshupaztm92.28 kg/m2 BSA Calculated1.88 Tobacco Useb) No (more content not included)... Normal [facility] CARDIAC SONIA 3-6on 2 CK [Catalytic activity/Vol] 55 U/L Normal 39-308 [facility] Comment on above: Performed By: #### C MREP #### [facility] [address] [place] [address] Dr. Sushant Pradhan CK.MB [Mass/Vol] 1.25 ng/mL Normal <=3.60 [facility] Comment on above: Performed By: #### C MREP #### [facility] [address] [place] [address] Dr. Sushant Pradhan HSTROP 4.5 pg/mL Normal 4.0-76.1 [facility] Comment on above: Result Comment: CUT- OFF POINTS HAVE BEEN ESTABLISHED BASED ON THE FOURTH UNIVERSAL DEFINITIONS OF MYOCARDIAL INFARCTION. THE UPPER REFERENCE LIMIT (URL) OF TROPONIN, DEFINED THE 99TH PERCENTILE OF cTnI DISTRIBUTION IN A REFERENCE POPULATION, HAS BEEN CONFIRMED THE DECISION THRESHOLD FOR OK DIAGNOSIS. Performed By: #### C MREP #### [facility] [address] [place] [address] Dr. Sushant Pradhan CBC AUTO DIFFon 11-24-2021 BASO # 0.0 103/ul Normal 0.0-0.1 [facility] Comment on above: Performed By: #### C BC #### [facility] [address] [place] [address] Dr. Sushant Pradhan Basophils/100 WBC (Bld) 0.2 % Normal 0.2-2.0 [facility] Comment on above: Performed By: #### C BC #### [facility] [address] [place] [address] Dr. Sushant Pradhan EO # 0.0 103/ul Normal 0.0-0.7 [facility] Comment on above: Performed By: #### C BC #### [facility] [address] [place] [address] Dr. Sushant Pradhan Eosinophils/100 WBC (Bld) 0.0 % Critically low 0.9-7.0 [facility] Comment on above: Performed By: #### C BC #### [facility] [address] [place] [address] Dr. Sushant Pradhan Erythrocyte distribution width (RBC) [Ratio] 14.7 % Normal 11.0-15.0 [facility] Comment on above: Performed By: #### C BC #### [facility] [address] [place] [address] Dr. Sushant Pradhan Hematocrit (Bld) [Volume fraction] 35.5 % Critically low 42.0-54.0 [facility] Comment on above: Performed By: #### C BC #### [facility] [address] [place] [address] Dr. Sushant Pradhan Hemoglobin (Bld) [Mass/Vol] 12.8 g/dL Critically low 14.0-18.0 [facility] Comment on above: Performed By: #### C BC #### [facility] [address] [place] [address] Dr. Sushant Pradhan IG # 0.01 10e3/ul Normal 0.00-0.03 [facility] Comment on above: Performed By: #### C BC #### [facility] [address] [place] [address] Dr. Sushant Pradhan IG % 0.2 % Normal 0.0-0.5 [facility] Comment on above: Performed By: #### C BC #### [facility] [address] [place] [address] Dr. Sushant Pradhan LYMPH # 0.5 103/ul Critically low 1.2-3.8 [facility] Comment on above: Performed By: #### C BC #### [facility] [address] [place] [address] Dr. Sushant Pradhan Lymphocytes/100 WBC (Bld) 8.2 % Critically low 20.5-60.0 [facility] Comment on above: Performed By: #### C BC #### [facility] [address] [place] [address] Dr. Sushant Pradhan MANUAL DIFF REQ NO Normal [facility] Comment on above: Performed By: #### C BC #### [facility] [address] [place] [address] Dr. Sushant Pradhan MCH (RBC) [Entitic mass] 32.5 pg Normal 25.9-34.0 [facility] Comment on above: Performed By: #### C BC #### [facility] [address] [place] [address] Dr. Sushant Pradhan MCHC (RBC) [Mass/Vol] 36.1 g/dL Critically high 29.9-35.2 [facility] Comment on above: Performed By: #### C BC #### [facility] [address] [place] [address] Dr. Sushant Pradhan MCV (RBC) [Entitic vol] 90.1 fL Normal 80.0-94.0 [facility] Comment on above: Performed By: #### C BC #### [facility] [address] [place] [address] Dr. Sushant Prdahan MONO # 0.2 103/ul Critically low 0.3-0.8 [facility] Comment on above: Performed By: #### C BC #### [facility] [address] [place] [address] Dr. Sushant Pradhan Monocytes/100 WBC (Bld) 3.5 % Normal 1.7-12.0 [facility] Comment on above: Performed By: #### C BC #### [facility] [address] [place] [address] Dr. Sushant Pradhan NEUT # 4.8 103/ul Normal 1.4-6.5 [facility] Comment on above: Performed By: #### C BC #### [facility] [address] [place] [address] Dr. Sushnat Pradhan Neutrophils/100 WBC (Bld) 87.9 % Critically high 43.0-75.0 [facility] Comment on above: Performed By: #### C BC #### [facility] [address] [place] [address] Dr. Sushant Pradhan Platelet mean volume (Bld) [Entitic vol] 9.4 fL Critically low 9.5-13.5 [facility] Comment on above: Performed By: #### C BC #### [facility] [address] [address] [address] Sushant Pradhan PLT 135 103/ul Critically low 150-450 [facility] Comment on above: Performed By: #### C BC #### [facility] [address] [address] [address] Sushant Pradhan RBC 3.94 106/ul Critically low 4.70-6.10 [facility] Comment on above: Performed By: #### C BC #### [facility] [address] [address] [address] Sushant Pradhan WBC 5.5 103/ul Normal 4.0-11.0 [facility] Comment on above: Performed By: #### C BC #### [facility] [address] [place] [address] Dr. Sushant Pradhan LIPID PROFILEon 11-24-2021 CHOL-HDL RATIO NORM SEE BELOW Normal [facility] Comment on above: Result Comment: 3.3 - 4.4 LOW RISK 4.4 - 7.1 AVERAGE RISK 7.1 - 11.0 MODERATE RISK >11.0 HIGH RISK Performed By: #### L IPID, BMP #### [facility] [address] [place] [address] Dr. Sushant Pradhan Cholesterol [Mass/Vol] 126 mg/dL Normal <=200 [facility] Comment on above: Performed By: #### L IPID, BMP #### [facility] [address] [place] [address] Dr. Sushant Pradhan Cholesterol in HDL [Mass/Vol] 73 mg/dL Critically high 40-60 [facility] Comment on above: Performed By: #### L IPID, BMP #### [facility] [address] [place] [address] Dr. Sushant Pradhan Cholesterol in LDL [Mass/Vol] 44.2 mg/dL Normal [facility] Comment on above: Performed By: #### L IPID, BMP #### [facility] [address] [address] [address] Sushant Pradhan Cholesterol.total/Cho lesterol in HDL [Mass ratio] 1.7 {ratio} Normal [facility] Comment on above: Performed By: #### L IPID, BMP #### [facility] [address] [address] [address] Sushant Pradhan HDL NORMAL > or = 60 mg/dl - LO W CARDIOVASCULAR RISK <40 mg/dl - HIGH CARDIOVASCULAR RISK Normal [facility] Comment on above: Performed By: #### L IPID, BMP #### [facility] [address] [address] [address] Sushant Pradhan LDL CALC NORMAL SEE BELOW Normal [facility] Comment on above: Result Comment: <100 mg/dl OPTIMAL 100 - 129 mg/dl NEAR OR ABOVE OPTIMAL 130 - 159 mg/dl BORDERLINE HIGH 160 - 189 mg/dl HIGH >190 mg/dl VERY HIGH Performed By: #### L IPID, BMP #### [facility] [address] [address] [address] Sushant Pradhan Triglyceride [Mass/Vol] 44 mg/dL Normal <=150 [facility] Comment on above: Performed By: #### L IPID, BMP #### [facility] [address] [address] [address] Sushant Pradhan VLDL CALC 8.8 mg/dL Normal [facility] Comment on above: Performed By: #### L IPID, BMP #### [facility] [address] [place] [address] Dr. Sushant Pradhan NM STRESS/REST MULTIon 11-24 NM STRESS/REST MULTI Patient: EDISON ECHOLS N. Exam Date: 11/24/2021 : 1965 Gender:M Ordering : DR LIZBET LARA . Admission #: [id number] Family : Order #: [id number] CLICK HERE TO VIEW EXAM RADIOLOGY REPORT [...] MD on 11/24/2021 at 15:06 Normal [facility] PROF CHEM 8 (BAS METB)on Anion gap [Moles/Vol] 10.7 mmol/L Normal [facility] Comment on above: Performed By: #### L IPID, BMP #### [facility] [address] [place] [address] Dr. Sushant Pradhan Calcium [Mass/Vol] 8.5 mg/dL Normal 8.5-10.1 [facility] Comment on above: Performed By: #### L IPID, BMP #### [facility] [address] [place] [address] Dr. Sushant Pradhan Chloride [Moles/Vol] 96 mmol/L Critically low 98-107 [facility] Comment on above: Performed By: #### L IPID, BMP #### [facility] [address] [place] [address] Dr. Sushant Pradhan CO2 [Moles/Vol] 22.0 mmol/L Normal 21.0-32.0 [facility] Comment on above: Performed By: #### L IPID, BMP #### [facility] [address] [place] [address] Dr. Sushant Pradhan Creatinine [Mass/Vol] 1.04 mg/dL Normal 0.70-1.30 [facility] Comment on above: Performed By: #### L IPID, BMP #### [facility] [address] [place] [address] Dr. Sushant Pradhan EGFR-AF MONTSERRATIAN >60 Normal >=60 [facility] Comment on above: Performed By: #### L IPID, BMP #### [facility] [address] [address] [address] Sushant Pradhan EGFR-NON AF [place]TSERR[place] >60 Normal >=60 [facility] Comment on above: Performed By: #### L IPID, BMP #### [facility] [address] [place] [address] Dr. Sushant Pradhan Glucose [Mass/Vol] 139 mg/dL Critically high 74-106 [facility] Comment on above: Performed By: #### L IPID, BMP #### [facility] [address] [place] [address] Dr. Sushant Pradhan Potassium [Moles/Vol] 4.2 mmol/L Normal 3.5-5.1 [facility] Comment on above: Performed By: #### L IPID, BMP #### [facility] [address] [place] [address] Dr. Sushant Pradhan Sodium [Moles/Vol] 127 mmol/L Critically low 136-145 [facility] Comment on above: Performed By: #### L IPID, BMP #### [facility] [address] [place] [address] Dr. Sushant Pradhan Urea nitrogen [Mass/Vol] 12.0 mg/dL Normal 7.0-18.0 [facility] Comment on above: Performed By: #### L IPID, BMP #### [facility] [address] [place] [address] Dr. Sushant Pradhan Urea nitrogen/Creatinine [Mass ratio] 11.5 mg/mg Normal [facility] Comment on above: Performed By: #### L IPID, BMP #### [facility] [address] [place] [address] Dr. Sushant Pradhan BNPon 11-23-2021 Natriuretic peptide B (Bld) [Mass/Vol] 189.0 pg/mL Normal <=900.0 [facility] Comment on above: Performed By: #### B RUBBER CURER, HSTROPN, BMP #### [facility] [address] [place] [address] Dr. Sushant Pradhan CARDIAC SONIA 3-6on 2 CK [Catalytic activity/Vol] 73 U/L Normal 39-308 [facility] Comment on above: Performed By: #### C MREP #### [facility] [address] [place] [address] Dr. Sushant Pradhan CK.MB [Mass/Vol] 1.78 ng/mL Normal <=3.60 [facility] Comment on above: Performed By: #### C MREP #### [facility] [address] [place] [address] Dr. Sushant Pradhan HSTROP 4.2 pg/mL Normal 4.0-76.1 [facility] Comment on above: Result Comment: CUT- OFF POINTS HAVE BEEN ESTABLISHED BASED ON THE FOURTH UNIVERSAL DEFINITIONS OF MYOCARDIAL INFARCTION. THE UPPER REFERENCE LIMIT (URL) OF TROPONIN, DEFINED THE 99TH PERCENTILE OF cTnI DISTRIBUTION IN A REFERENCE POPULATION, HAS BEEN CONFIRMED THE DECISION THRESHOLD FOR OK DIAGNOSIS. Performed By: #### C MREP #### [facility] [address] [place] [address] Dr. Sushant Pradhan CBC AUTO DIFFon 11-23-2021 BASO # 0.0 103/ul Normal 0.0-0.1 [facility] Comment on above: Performed By: #### C BC #### [facility] [address] [place] [address] Dr. Sushant Pradhan Basophils/100 WBC (Bld) 0.5 % Normal 0.2-2.0 [facility] Comment on above: Performed By: #### C BC #### [facility] [facility] [address] [place] [address] Dr. Sushant Pradhan EO # 0.1 103/ul Normal 0.0-0.7 [facility] Comment on above: Performed By: #### C BC #### [facility] [address] [place] [address] Dr. Sushant Pradhan Eosinophils/100 WBC (Bld) 0.9 % Normal 0.9-7.0 [facility] Comment on above: Performed By: #### C BC #### [facility] [address] [place] [address] Dr. Sushant Pradhan Erythrocyte distribution width (RBC) [Ratio] 15.3 % Critically high 11.0-15.0 [facility] Comment on above: Performed By: #### C BC #### [facility] [address] [place] [address] Dr. Sushant Pradhan Hematocrit (Bld) [Volume fraction] 38.7 % Critically low 42.0-54.0 [facility] Comment on above: Performed By: #### C BC #### [facility] [address] [place] [address] Dr. Sushant Pradhan Hemoglobin (Bld) [Mass/Vol] 14.0 g/dL Normal 14.0-18.0 [facility] Comment on above: Performed By: #### C BC #### [facility] [address] [place] [address] Dr. Sushant Pradhan IG # 0.01 10e3/ul Normal 0.00-0.03 [facility] Comment on above: Performed By: #### C BC #### [facility] [address] [place] [address] Dr. Sushant Pradhan IG % 0.2 % Normal 0.0-0.5 [facility] Comment on above: Performed By: #### C BC #### [facility] [address] [place] [address] Dr. Sushant Pradhan LYMPH # 1.1 103/ul Critically low 1.2-3.8 [facility] Comment on above: Performed By: #### C BC #### [facility] [address] [place] [address] Dr. Sushant Pradhan Lymphocytes/100 WBC (Bld) 17.2 % Critically low 20.5-60.0 [facility] Comment on above: Performed By: #### C BC #### [facility] [address] [place] [address] Dr. Sushant Pradhan MANUAL DIFF REQ NO Normal [facility] Comment on above: Performed By: #### C BC #### [facility] [address] [place] [address] Dr. Sushant Pradhan MCH (RBC) [Entitic mass] 32.7 pg Normal 25.9-34.0 [facility] Comment on above: Performed By: #### C BC #### [facility] [address] [place] [address] Dr. Sushant Pradhan MCHC (RBC) [Mass/Vol] 36.2 g/dL Critically high 29.9-35.2 [facility] Comment on above: Performed By: #### C BC #### [facility] [address] [place] [address] Dr. Sushant Pradhan MCV (RBC) [Entitic vol] 90.4 fL Normal 80.0-94.0 [facility] Comment on above: Performed By: #### C BC #### [facility] [address] [place] [address] Dr. Sushant Pradhan MONO # 0.5 103/ul Normal 0.3-0.8 [facility] Comment on above: Performed By: #### C BC #### [facility] [address] [place] [address] Dr. Sushant Pradhan Monocytes/100 WBC (Bld) 7.8 % Normal 1.7-12.0 [facility] Comment on above: Performed By: #### C BC #### [facility] [address] [place] [address] Dr. Sushant Pradhan NEUT # 4.7 103/ul Normal 1.4-6.5 [facility] Comment on above: Performed By: #### C BC #### [facility] [address] [place] [address] Dr. Sushant Pradhan Neutrophils/100 WBC (Bld) 73.4 % Normal 43.0-75.0 [facility] Comment on above: Performed By: #### C BC #### [facility] [address] [address] [address] Sushant Pradhan Platelet mean volume (Bld) [Entitic vol] 9.1 fL Critically low 9.5-13.5 [facility] Comment on above: Performed By: #### C BC #### [facility] [address] [address] [address] Sushant Pradhan PLT 153 103/ul Normal 150-450 [facility] Comment on above: Performed By: #### C BC #### [facility] [address] [address] [address] Sushant Pradhan RBC 4.28 106/ul Critically low 4.70-6.10 [facility] Comment on above: Performed By: #### C BC #### [facility] [address] [place] [address] Dr. Sushant Pradhan WBC 6.4 103/ul Normal 4.0-11.0 [facility] Comment on above: Performed By: #### C BC #### [facility] [address] [place] [address] Dr. Sushant Pradhan CTA CHEST WO W [...] MARCE PAGAN Date: 2021-11-23 15:47 Normal [facility] Covid-19 PCR (CVDTBH)on 11-11 SARS-CoV-2 (COVID-19) RNA DEANA+probe Ql (Unsp spec) Not detected Normal NOT DETECTED [facility] Comment on above: Result Comment: When diagnostic [...] for this test is supported by the [employer] and Human Service's declaration that [...] used). Performed By: #### C BC #### [facility] [address] [place] [address] Dr. Sushant Pradhan PROF CHEM 8 (BAS METB)on Anion gap [Moles/Vol] 13.9 mmol/L Normal [facility] Comment on above: Performed By: #### B RUBBER CURER, HSTROPN, BMP #### [facility] [address] [place] [address] Dr. Sushant Pradhan Calcium [Mass/Vol] 8.4 mg/dL Critically low 8.5-10.1 [facility] Comment on above: Performed By: #### B RUBBER CURER HSTROPN, BMP #### [facility] [address] [place] [address] Dr. Sushant Pradhan Chloride [Moles/Vol] 94 mmol/L Critically low 98-107 [facility] Comment on above: Performed By: #### B RUBBER CURER, HSTROPN, BMP #### [facility] [address] [address] [address] Sushant Pradhan CO2 [Moles/Vol] 24.7 mmol/L Normal 21.0-32.0 [facility] Comment on above: Performed By: #### B RUBBER CURER, HSTROPN, BMP #### [facility] [address] [place] [address] Dr. Sushant Pradhan Creatinine [Mass/Vol] 0.97 mg/dL Normal 0.70-1.30 [facility] Comment on above: Performed By: #### B RUBBER CURER, HSTROPN, BMP #### [facility] [address] [address] [address] Sushant Pradhan EGFR-AF MONTSERRATIAN >60 Normal >=60 [facility] Comment on above: Performed By: #### B RUBBER CURER, HSTROPN, BMP #### [facility] [address] [place] [address] Dr. Sushant Pradhan EGFR-NON AF [place] >60 Normal >=60 [facility] Comment on above: Performed By: #### B RUBBER CURER, HSTROPN, BMP #### [facility] [address] [address] [address] Sushant Pradhan Glucose [Mass/Vol] 76 mg/dL Normal 74-106 [facility] Comment on above: Performed By: #### B RUBBER CURER, HSTROPN, BMP #### [facility] [address] [place] [address] Dr. Sushnat Pradhan Potassium [Moles/Vol] 4.6 mmol/L Normal 3.5-5.1 [facility] Comment on above: Performed By: #### B RUBBER CURER, HSTROPN, BMP #### [facility] [address] [place] [address] Dr. Sushant Pradhan Sodium [Moles/Vol] 128 mmol/L Critically low 136-145 [facility] Comment on above: Performed By: #### B RUBBER CURER, HSTROPN, BMP #### [facility] [address] [place] [address] Dr. Sushant Pradhan Urea nitrogen [Mass/Vol] 9.0 mg/dL Normal 7.0-18.0 [facility] Comment on above: Performed By: #### B RUBBER CURER, HSTROPN, BMP #### [facility] [address] [place], [place] [address] Dr. Sushant Pradhan Urea nitrogen/Creatinine [Mass ratio] 9.3 mg/mg Normal [facility] Comment on above: Performed By: #### B RUBBER CURER, HSTROPN, BMP #### [facility] [address] [address] [address] Sushant Pradhan TROPONIN, HIGH SENSITIVITYon 11-23-2021 HSTROP 4.4 pg/mL Normal 4.0-76.1 [facility] Comment on above: Result Comment: CUT- OFF POINTS HAVE BEEN ESTABLISHED BASED ON THE FOURTH UNIVERSAL DEFINITIONS OF MYOCARDIAL INFARCTION. THE UPPER REFERENCE LIMIT (URL) OF TROPONIN, DEFINED THE 99TH PERCENTILE OF cTnI DISTRIBUTION IN A REFERENCE POPULATION, HAS BEEN CONFIRMED THE DECISION THRESHOLD FOR [place] DIAGNOSIS. Performed By: #### B RUBBER CURER, HSTROPN, BMP #### [facility] [address] [address] [address] Sushant Pradhan Laboratory - Chemistry and C hemistry - challengeon 09-09-2021 Cholesterol [Mass/Vol] 125\S\125 below low threshold 140-200 [facility] 250 DO Work Phone: Comment on above: Chol less than 200 m g/dl low risk Chol 201-239 mg/dl borderline risk Chol 240 mg/dl and greater high risk Cholesterol in LDL [Mass/Vol] 46\S\46 Normal 0-100 [facility] 250 DO Work Phone: Comment on above: LDL ATP III CLASSIFI CATION LDL less than 100 mg/dL Optimal LDL 100-129 mg/dL Near or above optimal LDL 130-159 mg/dL Borderline high LDL 160-189 mg/dL High LDL greater than 189 mg/dL Very high Laboratory - Microbiology an d Antimicrobial susceptibilityon 09-09-2021 SARS-CoV-2 (COVID-19) RNA DEANA+probe Ql (Unsp spec) [facility] 250 DO Work Phone: No Panel Informationon 09-09 78.5\S\78.5 above high threshold 25.1-36.5 [facility] 250 DO Work Phone: Comment on above: PERFORMED BY:[facility] [place], [place] [id number] MEDICAL DIRECTORCATY DELCID M.D. 1.0\S\1.0 Normal [facility] DO Work Phone: Comment [...] valves: 3 - 4.5 11.5\S\11.5 Normal 9.0-12.9 [facility] 250 DO Work Phone: 1.8\S\1.8 Normal <5.0 [facility] 250 DO Work Phone: Comment on above: PERFORMED BY:[facility], [place] [id number] MEDICAL DIRECTORCATY DELCID M.D. 11\S\11 Normal [facility] 250 DO Work Phone: 57\S\57 Normal 35-149 [facility] 250 DO Work Phone: Comment on above: TRIG ATP III CLASSIF ICATION TRIG less than 150 mg/dL Normal TRIG 150-199 mg/dL Borderline high TRIG 200-500 mg/dL High TRIG greater than 500 mg/dL Very high Standard traceable to the Center for Disease Conrtrol and Prevention (CDC) test method. 68\S\68 Normal 29-71 [facility] 250 DO Work Phone: Comment on above: HDL CHOL ATP-III CLA SSIFICATION Cardiovascular Risk HDL > or equal to 60 mg/dL LOW HDL < 40 mg/dL HIGH Negative Normal Negative -[facility] 250 DO Work Phone: Comment on above: This is a duplicate Jonna SARS Antigen (EROS) result to be used for statistical tracking purpose only.PERFORMED BY:[facility] [place], [place] [id number] MEDICAL DIRECTORCATY DELCID M.D. Office Visit (Cardiology)on [...] IO EKG Electrocardiogram- 12 Lead; Status:Complete; Done: 08Sep2021 Lung cancer PHQ2 Screen Positive; Status:Complete - Retrospective Authorization; Done: 08Sep2021 SocHx: Former smoker Tobacco Use Screening; Status:Complete; Done: 08Sep2021 Patient Instructions By signing my name below, I, Karin Malloy LPN,Scribe, attest that this documentation has been prepared [...] pain and dyspnea. Patient is a 56-year-old -[place] gentleman returns and seen in cardiology consultation [...] negative for complaint. Vitals Vital Signs Recorded: [id number] 10:09AMRecorded: [id number] 10:05AM [id number], LUE, [id number], RUE, Sitting [id number], LUE, [id number], RUE, Sitting Heart Rate96, Apical Height6 ft Qyqqjk924 lb BMI Cyqjkhsgdl27.16 kg/m2 BSA (more content not included)... Normal [facility] Tobacco Screening.on 022 Adult depression screening assessment Yes [facility] 250 DO Work Phone: Fall risk assessment c) Not medically indicated [facility] 250 DO Work Phone: Tobacco use status CP b) No [facility] 250 DO Work Phone: Tobacco Screening. 3-Nearly every day [facility] 250 DO Work Phone: Tobacco Screening. 2-More than half the days [facility] 250 DO Work Phone: Tobacco Screening. 0-Not at all [facility] 250 DO Work Phone: Tobacco Screening. Extremely Difficult [facility] 250 DO Work Phone: Albumin [Mass/volume] in Ser um or PlasmaOrdered By: Estela Varma on 09-02-2021 Albumin [Mass/Vol] 3.8 g/dL 3.2-5.5 [facility] Basophils Auto (Bld) [#/Vol] Ordered By: Estela Varma on 09-02-2021 Basophils (Bld) [#/Vol] 0.0 10*3/uL 0.0-0.[address] [facility] Basophils/100 WBC Auto (Bld) Ordered By: Estela Varma on 09-02-2021 Basophils/100 WBC (Bld) 0.7 % . [facility] Eosinophils Auto (Bld) [#/Vo l]Ordered By: Estela Varma on 09-02-2021 Eosinophils (Bld) [#/Vol] 0.2 10*3/uL 0.0-0.[address] [facility] Eosinophils/100 WBC Auto (Bl d)Ordered By: Estela Varma on 09-02-2021 Eosinophils/100 WBC (Bld) 4.2 % . [facility] Erythrocyte distribution wid th Auto (RBC) [Ratio]Ordered By: Estela Varma on 09-02-2021 Erythrocyte distribution width (RBC) [Ratio] 15.7 % 12.0-14.[address] [facility] Globulin Calc (S) [Mass/Vol] Ordered By: Estela Varma on 09-02-2021 Globulin (S) [Mass/Vol] 3.4 g/dL [facility] Glucose Glucometer (dC) [M ass/Vol]Ordered By: George Ash on 09-02-2021 Glucose [Mass/Vol] 82 mg/dL [facility] Comment on above: Random Glucose Refer ence Range is dependent on time and content of last meal. Glucose of more than 200 mg/dL in a nonstressed, ambulatory subject supports the diagnosis of Diabetes Mellitus. Hematocrit Auto (Bld) [Volum e fraction]Ordered By: Estela Varma on 09-02-2021 Hematocrit (Bld) [Volume fraction] 42.4 % 38.8-50.[address] [facility] Hemoglobin [Mass/volume] in BloodOrdered By: Estela Varma on 09-02-2021 Hemoglobin (Bld) [Mass/Vol] 14.6 g/dL 13.0-17.[address] [facility] Laboratory - Hematology and Cell countsOrdered By: Estela Varma on 09-02-2021 Nucleated RBC/100 WBC (Bld) [Ratio] 0.1 % 0-0.[address] [facility] Leukocytes [#/volume] in Blo od by Automated countOrdered By: Estela Varma on 09-02-2021 WBC (Bld) [#/Vol] 5.0 10*3/uL 4.5-11.0 [facility] Lymphocytes Auto (Bld) [#/Vo l]Ordered By: Estela Varma on 09-02-2021 Lymphocytes (Bld) [#/Vol] 0.9 10*3/uL 1.00-4.[address] [facility] Lymphocytes/100 WBC Auto (Bl d)Ordered By: Estela Varma on 09-02-2021 Lymphocytes/100 WBC (Bld) 18.2 % . [facility] MCH Auto (RBC) [Entitic mass ]Ordered By: Estela Varma on 09-02-2021 MCH (RBC) [Entitic mass] 32.6 pg 27.5-35.[address] [facility] MCHC Auto (RBC) [Mass/Vol]Or dered By: Estela Varma on 09-02-2021 MCHC (RBC) [Mass/Vol] 34.4 g/dL 32.5-35.6 [facility] MCV Auto (RBC) [Entitic vol] Ordered By: Estela Varma on 09-02-2021 MCV (RBC) [Entitic vol] 94.8 fL 83.5-[address] [facility] Monocytes Auto (Bld) [#/Vol] Ordered By: Estela Varma on 09-02-2021 Monocytes (Bld) [#/Vol] 0.4 10*3/uL 0.0-0.[address] [facility] Monocytes/100 WBC Auto (Bld) Ordered By: Estela Varma on 09-02-2021 Monocytes/100 WBC (Bld) 7.9 % . [facility] Neutrophils Auto (Bld) [#/Vo l]Ordered By: Estela Varma on 09-02-2021 Neutrophils (Bld) [#/Vol] 3.5 10*3/uL 1.8-7.[address] [facility] Neutrophils/100 WBC Auto (Bl d)Ordered By: Estela Varma on 09-02-2021 Neutrophils/100 WBC (Bld) 69.0 % . [facility] Platelet mean volume Auto (B ld) [Entitic vol]Ordered By: Estela Varma on 09-02-2021 Platelet mean volume (Bld) [Entitic vol] 7.0 fL 6.6-10.[address] [facility] Platelets Auto (Bld) [#/Vol] Ordered By: Estela Varma on 09-02-2021 Platelets (Bld) [#/Vol] 186 10*3/uL 150-[address] [facility] Protein [Mass/volume] in Ser um or PlasmaOrdered By: Estela Varma on 09-02-2021 Protein [Mass/Vol] 7.2 g/dL 6.1-7.9 [facility] RBC Auto (Bld) [#/Vol]Ordere d By: Estela Varma on 09-02-2021 RBC (Bld) [#/Vol] 4.48 10*6/uL 3.90-5.60 [facility] Serum or plasma alanine glynn otransferase measurement without P-5'-P (enzymatic activiOrdered By: Estela Varma on 09-02-2021 ALT No additional P-5'-P [Catalytic activity/Vol] 13 U/L 10-[address] [facility] Serum or plasma albumin/glob ulin mass ratioOrdered By: Estela Varma on 09-02-2021 Albumin/Globulin [Mass ratio] 1.1 {ratio} [facility] Serum or plasma alkaline abhijit sphatase measurement (enzymatic activity/volume)Ordered By: Estela Varma on 09-02-2021 ALP [Catalytic activity/Vol] 130 U/L 32-[address] [facility] Serum or plasma aspartate am inotransferase measurement (enzymatic activity/volume)Ordered By: Estela Varma on 09-02-2021 AST [Catalytic activity/Vol] 18 U/L 10-[address] [facility] Serum or plasma calcium ledy urement (mass/volume)Ordered By: Estela Varma on 09-02-2021 Calcium [Mass/Vol] 9.0 mg/dL 8.2-10.2 [facility] Serum or plasma carcinoembry onic antigen measurement (mass/volume)Ordered By: Estela Varma on 09-02-2021 Carcinoembryonic Ag [Mass/Vol] 11.4 ng/mL 0.0-3.[address] [facility] Serum or plasma chloride carlyn surement (moles/volume)Ordered By: Estela Varma on 09-02-2021 Chloride [Moles/Vol] 100 mmol/L 95-114 [facility] Serum or plasma glucose ledy urement (mass/volume)Ordered By: Estela Varma on 09-02-2021 Glucose [Mass/Vol] 78 mg/dL 70-100 [facility] Comment on above: ADA recommended refe rence rangeRandom Glucose Reference Range is dependent on time and content of last meal. Glucose of more than 200 mg/dL in a nonstressed, ambulatory subject supports the diagnosis of Diabetes Mellitus. Serum or plasma potassium me asurement (moles/volume)Ordered By: Estela Varma on 09-02-2021 Potassium [Moles/Vol] 4.3 mmol/L 3.5-5.1 [facility] Serum or plasma sodium measu rement (moles/volume)Ordered By: Estela Varma on 09-02-2021 Sodium [Moles/Vol] 133 mmol/L 136-146 [facility] Serum or plasma total biliru bin measurement (mass/volume)Ordered By: Estela Varma on 09-02-2021 Bilirubin [Mass/Vol] 0.6 mg/dL 0.3-1.2 [facility] Serum or plasma total carbon dioxide measurement (moles/volume)Ordered By: Estela Varma on 09-02-2021 CO2 [Moles/Vol] 23.9 mmol/L 22.0-30.0 [facility] TSH DL <= 0.005 mIU/L QnOrde red By: George Ash on 01-31-2021 TSH Qn 1.65 m[IU]/L 0.45-5.[address] [facility] Lipid Panel Fastingon 2020 Cholesterol [Mass/Vol] 145 mg/dL Normal 0-199 [facility] Comment on above: Result Comment: ATP III Cholesterol classification is Desirable. Performed By: #### L IPDF #### [facility] [address] [place] [address] HDL Cholesterol Fasting 49 mg/dL Normal 40-59 [...] [facility] [address] [place] [address] LDL Cholesterol (Calculated) Fasting 76 mg/dL Normal 0-129 [facility] Comment on above: Result Comment: ATP III LDL Classification is Optimal. Performed By: #### L IPDF #### [facility] [address] [place] [address] Triglycerides Fasting 98 mg/dL Normal 0-150 [facility] Comment on above: Result Comment: ATP III Triglycerides Classification is Normal. Performed By: #### L IPDF #### [facility] [address] [place] [address] Vitamin B12 and Folateon Cobalamin (Vitamin B12) [Mass/Vol] 417 pg/mL Normal 232-1245 [facility] Comment on above: Performed By: #### B 12FO #### [facility] [address] [place] [address] Folate 13.4 ng/mL Normal 7.3-26.1 [facility] Comment on above: Result Comment: As o f 15, the methodology has changed. Results from this methodology should not be compared with results from previous methodology. Performed By: #### B 12FO #### [facility] [address] [place] [address] Vitamin Don 08-20-2020 Vitamin D 33.1 ng/mL Normal 30.0-100.0 [facility] Comment on above: Result Comment: (30- 100 ng/mL) Optimum Level This assay accurately quantifies the sum of vitamin D3, 25-Hydroxy and vitamin D2, 25-Hyroxy. Performed By: #### V ITD #### [facility] [address] [place] [address] Thyroxine (T4) free [Mass/vo lume] in Serum or Plasmaon 08-16-2020 Free T4 [Mass/Vol] 0.79 ng/dL 0.61-1.12 [facility] Lipid Profileon 08-06-2020 Cholesterol [Mass/Vol] 132 mg/dL Normal <200 [facility] Comment on above: Result Comment: Cholesterol Guidelines: <200 Desirable 200-240 Borderline >240 Undesirable Performed By: #### L IPR #### [employer] [facility] [address] [place] [id number] International Manager: Joe Todd MD Cholesterol in HDL [Mass/Vol] 41 mg/dL Normal >40 [facility] Comment on above: Result Comment: HDL Guidelines: <40 Undesirable 40-59 Borderline >59 Desirable Performed By: #### L IPR #### [employer] [facility] [address] [place] [phone] International Manager: Joe Todd MD Cholesterol in LDL [Mass/Vol] 72 mg/dL Normal 0-130 [facility] Comment on above: Result Comment: LDL Guidelines: <100 Desirable 100-129 Near to/above Desirable 130-159 Borderline >159 Undesirable Direct (measured) LDL and calculated LDL are not interchangeable tests. Performed By: #### L IPR #### [facility] [employer] [facility] [address] [place] [address] International Manager: Joe Todd MD Cholesterol.total/Cho lesterol in HDL [Mass ratio] 3.2 {ratio} Normal <5 [facility] Comment on above: Performed By: #### L IPR #### [employer] [address] [place] [id number] International Manager: Joe Todd MD Triglyceride [Mass/Vol] 93 mg/dL Normal <150 [facility] Comment on above: Result Comment: Triglyceride Guidelines: <150 Desirable 150-199 Borderline 200-499 High >499 Very high Based on AHA Guidelines for fasting triglyceride, February 2012. Performed By: #### L IPR #### [facility] [address] [place], [place] [id number] International Manager: Joe Todd MD Cholesterol in VLDL [Mass/Vol] NOT REPORTED Normal 06-12 [facility] Comment on above: Performed By: #### L IPR #### [facility] [address] [place], [place] [id number] International Manager: Joe Todd MD Direct bilirubin measurement on 07-05-2020 Bilirubin.direct [Mass/Vol] 0.1 mg/dL 0.0-0.[address] [facility] Serum or plasma non-glucuron idated bilirubin measurement (mass/volume)on 07-05-2020 Bilirubin.indirect [Mass/Vol] 0.8 mg/dL [facility] Laboratory - Hematology and Cell countson 05-24-2020 WBC (Bld) [#/Vol] 4.9 10*3/uL 4.5-11.0 [facility] Blood anisocytosis detection on 03-08-2020 Anisocytosis Ql (Bld) Slight [facility] No Panel Informationon 03-08 Platelet Estimate Normal Normal [facility] Platelet Morphology Comment Normal Normal [facility] RBC morphologyon 03-08-2020 RBC morphology finding Nom (Bld) N/A [facility] CARDIAC STRESS/REST (DILAN CARDIAL PERFUSION/MIBI)on 03-03-2020 [facility] CARDIAC STRESS/REST (MYOCARDIAL PERFUSION/MIBI) Patient Name: KIRILL ECHOLS STUDY: MYOCARDIAL PERFUSION STRESS TEST WITH LEXISCAN Performing facility: [facility], \[address], [address], \[place] [address] [facility] Provider: Ema Oliveira DO, FACC PCP: Dr. Danni Andrea Supervising provider: Tejal King MD, FACC INDICATION: Chest Pain; HISTORY: Gender: M; Age: 54 y/o ; Height: 182.88 cm; Weight: 71.2604823 kg. HTN; Chest Pain; COPD; Quit smoking in 2020 years ago. COMPARISON: No comparison. ACCESSION NUMBER(S): [id number]; [id number]; [id number] ORDERING CLINICIAN: LUKAS OLIVEIRA TECHNIQUE: ONE DAY [...] Electronically signed by: TEJAL KING MD [facility] CARDIAC STRESS/REST INJE CTIONon 03-03-2020 [facility] CARDIAC STRESS/REST INJECTION Patient Name: KIRILL ECHOLS STUDY: MYOCARDIAL PERFUSION STRESS TEST WITH LEXISCAN Performing facility: [facility], \[address], [address], \[place] [address] [facility] Provider: Ema Oliveira DO, [facility] PCP: Dr. Danni Andrea Supervising provider: Tejal King MD, [facility] INDICATION: Chest Pain; HISTORY: Gender: M; Age: 54 y/o ; Height: 182.88 cm; Weight: 71.3217418 kg. HTN; Chest Pain; COPD; Quit smoking in 2020 years ago. COMPARISON: No comparison. ACCESSION NUMBER(S): [id number]; [id number]; [id number] ORDERING CLINICIAN: LUKAS OLIVEIRA TECHNIQUE: ONE DAY [...] Electronically signed by: TEJAL KING MD [facility] PART 2 STRESS OR REST (N O CHARGE)on 03-03-2020 [facility] PART 2 STRESS OR REST (NO CHARGE) Patient Name: KIRILL ECHOLS STUDY: MYOCARDIAL PERFUSION STRESS TEST WITH LEXISCAN Performing facility: [facility], [facility], \[address], [address], \[place] [address] [facility] Provider: Ema Oliveira DO, [facility] PCP: Dr. Danni Andrea Supervising provider: Tejal King MD, [facility] INDICATION: Chest Pain; HISTORY: Gender: M; Age: 54 y/o ; Height: 182.88 cm; Weight: 71.1504339 kg. HTN; Chest Pain; COPD; Quit smoking in 2019 years ago. COMPARISON: No comparison. ACCESSION NUMBER(S): [id number]; [id number]; [id number] ORDERING CLINICIAN: LUKAS OLIVEIRA TECHNIQUE: ONE DAY [...] Electronically signed by: TEJAL KING MD Normal [facility] No Panel Informationon 03-02 Schistocytes [facility] Target cellson 03-02-2020 Target cells LM Ql (Bld) Slight [facility] Basophil percentageon 2019 Eosinophils/100 WBC (Bld) 1 % 1-[address] [facility] Blood polychromasia detectio n by light microscopyon 02-24-2020 Polychromasia LM Ql (Bld) Slight [facility] Laboratory - Hematology and Cell countson 02-24-2020 Band form neutrophils/100 WBC (Bld) 13 % 0-[address] [facility] Lymphocytes/100 WBC Auto (Bl d)on 02-24-2020 Lymphocytes/100 WBC (Bld) 9 % 18-[address] [facility] Monocyte %on 02-24-2020 Monocytes/100 WBC (Bld) 1 % 1-[address] [facility] Monocytes/100 WBC Manual cnt (Bld)on 02-24-2020 Monocytes/100 WBC (Bld) 16 % 2-[address] [facility] No Panel Informationon 02-23 Dohle Bodies Moderate [facility] Poikilocytosis Slight [facility] Ovalocyte detectionon 2019 Ovalocytes LM Ql (Bld) Slight [facility] Segmented neutrophils/100 WB C Manual cnt (Bld)on 02-24-2020 Segmented neutrophils/100 WBC (Bld) 61 % 50-[address] [facility] Hypochromia detectionon 01-13 Hypochromia Ql (Bld) Slight [facility] Macrocytes detectionon 01-19 Macrocytes Ql (Bld) Slight [facility] No Panel Informationon 01-19 Smudge Cells Few [facility] Red blood cell stomatocyte d etectionon 12-09-2019 Stomatocytes LM Ql (Bld) [facility] Respiratory specimen 2019 no mathieu coronavirus RNA detection by probe and target amplifion 11-21-2019 SARS-CoV-2 (COVID-19) RNA DEANA+probe Ql (Resp) Not detected Not Detected [facility] Comment on above: This test was develo ped and its performance characteristicsdetermined by [employer]. This test has not beenFDA cleared or [...] (not detected) result in this assay.Performed at: [facility] [facility] [place] [id number] Director: Antonio Chaney MD, Phone: [phone] Basophils/100 WBC Auto (Bld) on 11-18-2019 Basophils/100 WBC (Bld) 1 % 0-[address] [facility] Amylaseon 04-28-2018 Amylase enzyme act/vol 130 U/L High 30-110 [facility] Comment on above: Performed By: #### C BCDIF, PT, GBCHEM, GBTSH, LIPA, MG, GBHCV, HAVIGM, HBCAB, HBSAG, RPR ####[facility] [id number] [place], [place] [phone] GGTon 04-28-2018 Gamma glutamyl transferase [Enzymatic activity/volume] in Serum or Plasma 426 U/L High 15-73 [facility] Comment on above: Performed By: #### C BCDIF, PT, GBCHEM, GBTSH, LIPA, MG, GBHCV, HAVIGM, HBCAB, HBSAG, RPR ####[facility] [id number] [place], [place] [phone] Hepatic Function Pnlon 04-28 Albumin mass conc 4.2 g/dL Normal 3.5-5.0 [facility] Comment on above: Performed By: #### C BCDIF, PT, GBCHEM, GBTSH, LIPA, MG, GBHCV, HAVIGM, HBCAB, HBSAG, RPR ####[facility] [id number] [place], [place] [phone] Alkaline Phos 96 U/L Normal 38-125 [facility] Comment on above: Performed By: #### C BCDIF, PT, GBCHEM, GBTSH, LIPA, MG, GBHCV, HAVIGM, HBCAB, HBSAG, RPR ####[facility] [id number] [place], [place] [phone] ALT enzyme act/vol 60 U/L Normal 21-72 [facility] Comment on above: Performed By: #### C BCDIF, PT, GBCHEM, GBTSH, LIPA, MG, GBHCV, HAVIGM, HBCAB, HBSAG, RPR ####[facility] [id number] [place], [place] [phone] AST enzyme act/vol 65 U/L High 17-59 [facility] Comment on above: Performed By: #### C BCDIF, PT, GBCHEM, GBTSH, LIPA, MG, GBHCV, HAVIGM, HBCAB, HBSAG, RPR ####[facility] [id number] [place], [place] [phone] Bilirubin Ql (U) 0.3 mg/dL Normal 0.2-1.3 [facility] Comment on above: Performed By: #### C BCDIF, PT, GBCHEM, GBTSH, LIPA, MG, GBHCV, HAVIGM, HBCAB, HBSAG, RPR ####[facility] [id number] [place], [place] [phone] Bilirubin.direct mass conc 0.2 mg/dL Normal 0.0-0.4 [facility] Comment on above: Performed By: #### C BCDIF, PT, GBCHEM, GBTSH, LIPA, MG, GBHCV, HAVIGM, HBCAB, HBSAG, RPR ####[facility] [id number] [facility], [place] [phone] Protein mass conc 7.3 g/dL Normal 6.2-8.2 [facility] Comment on above: Performed By: #### C BCDIF, PT, GBCHEM, GBTSH, LIPA, MG, GBHCV, HAVIGM, HBCAB, HBSAG, RPR ####[facility] [id number] [facility], [place] [phone] Lipaseon 04-28-2018 Lipase enzyme act/vol 941 U/L High 23-300 [facility] Comment on above: Performed By: #### C BCDIF, PT, GBCHEM, GBTSH, LIPA, MG, GBHCV, HAVIGM, HBCAB, HBSAG, RPR ####[facility] [id number] [facility], [place] [phone] Phenobarbitalon 04-26-2018 Phenobarbital mass conc ug/mL Low 15.0-40.0 [facility] Comment on above: Performed By: #### C BCDIF, PT, GBCHEM, GBTSH, LIPA, MG, GBHCV, HAVIGM, HBCAB, HBSAG, RPR ####[facility] [id number] [place], [place] [phone] RPRon 04-25-2018 Reagin Ab RPR Ql (S) Nonreactive Normal Nonreactive [facility] Comment on above: Performed By: #### C BCDIF, PT, GBCHEM, GBTSH, LIPA, MG, GBHCV, HAVIGM, HBCAB, HBSAG, RPR ####[facility] [id number] [facility], [place] [phone] Urinalysison 04-25-2018 Bilirubin Negative Normal Negative [facility] Comment on above: Performed By: #### C BCDIF, PT, GBCHEM, GBTSH, LIPA, MG, GBHCV, HAVIGM, HBCAB, HBSAG, RPR ####[facility] [id number] [facility], [place] [phone] Cast SEE NOTES Normal 0 [facility] Comment on above: Result Comment: >20H yaline Cast Performed By: #### C BCDIF, PT, GBCHEM, GBTSH, LIPA, MG, GBHCV, HAVIGM, HBCAB, HBSAG, RPR ####[facility] [id number] [address]Add[address] Gilbert Hospitalrdon, [place] [phone] Clarity Nom (U) Cloudy Critically abnormal Clear [facility] Comment on above: Performed By: #### C BCDIF, PT, GBCHEM, GBTSH, LIPA, MG, GBHCV, HAVIGM, HBCAB, HBSAG, RPR ####[facility] [id number] [address]Add[address] Gilbert Hospitalrdon, [place] [phone] Color Nom (U) Taylor Critically abnormal Yellow [facility] Comment on above: Performed By: #### C BCDIF, PT, GBCHEM, GBTSH, LIPA, MG, GBHCV, HAVIGM, HBCAB, HBSAG, RPR ####[facility] Prk15731 [address] RdAddison Gilbert Hospitalrdon, [place] [phone] Crystals SEE NOTES Normal 0 [facility] Comment on above: Result Comment: FewA morphous Performed By: #### C BCDIF, PT, GBCHEM, GBTSH, LIPA, MG, GBHCV, HAVIGM, HBCAB, HBSAG, RPR ####[facility] [id number] [facility], [place] [phone] Epithelial Cells Few Normal [facility] Comment on above: Result Comment: Squa mous Epithelial Cells Performed By: #### C BCDIF, PT, GBCHEM, GBTSH, LIPA, MG, GBHCV, HAVIGM, HBCAB, HBSAG, RPR ####[facility] Yok13372 [address], [place] [phone] Glucose Negative Normal Negative [facility] Comment on above: Performed By: #### C BCDIF, PT, GBCHEM, GBTSH, LIPA, MG, GBHCV, HAVIGM, HBCAB, HBSAG, RPR ####[facility] [id number] [facility], [place] [phone] Hemoglobin/Blood Negative Normal Negative [facility] Comment on above: Performed By: #### C BCDIF, PT, GBCHEM, GBTSH, LIPA, MG, GBHCV, HAVIGM, HBCAB, HBSAG, RPR ####[facility] [id number] [facility], [phone] INR Coag RelTime (Bld) 0-3 Normal 0-3 [facility] Comment on above: Performed By: #### C BCDIF, PT, GBCHEM, GBTSH, LIPA, MG, GBHCV, HAVIGM, HBCAB, HBSAG, RPR ####[facility] [id number] [facility], [place] [phone] Ketone Trace Critically abnormal Negative [facility] Comment on above: Performed By: #### C BCDIF, PT, GBCHEM, GBTSH, LIPA, MG, GBHCV, HAVIGM, HBCAB, HBSAG, RPR ####[facility] [id number] [facility], [place] [phone] Leukest Negative Normal Negative [facility] Comment on above: Performed By: #### C BCDIF, PT, GBCHEM, GBTSH, LIPA, MG, GBHCV, HAVIGM, HBCAB, HBSAG, RPR ####[facility] [id number] [facility], [place] [phone] Nitrites Negative Normal Negative [facility] Comment on above: Performed By: #### C BCDIF, PT, GBCHEM, GBTSH, LIPA, MG, GBHCV, HAVIGM, HBCAB, HBSAG, RPR ####[facility] [id number] [facility], [place] [phone] pH Test strip (U) 5.0 [pH] Normal 5-7 [facility] Comment on above: Performed By: #### C BCDIF, PT, GBCHEM, GBTSH, LIPA, MG, GBHCV, HAVIGM, HBCAB, HBSAG, RPR ####[facility] [id number] [address]Add[address] Gilbert Hospitalrdon, [place] [phone] Protein mass conc 100 mg/dl Critically abnormal Negative [facility] Comment on above: Performed By: #### C BCDIF, PT, GBCHEM, GBTSH, LIPA, MG, GBHCV, HAVIGM, HBCAB, HBSAG, RPR ####[facility] [id number] [facility], [place] [phone] Urine Alpesh Comment Many Normal [facility] Comment on above: Result Comment: MUCO US Performed By: #### C BCDIF, PT, GBCHEM, GBTSH, LIPA, MG, GBHCV, HAVIGM, HBCAB, HBSAG, RPR ####[facility] [id number] [facility], [place] [phone] Urine Spec Kirksey 1.025 Normal 1.005-1.030 [facility] Comment on above: Performed By: #### C BCDIF, PT, GBCHEM, GBTSH, LIPA, MG, GBHCV, HAVIGM, HBCAB, HBSAG, RPR ####[facility] [id number] [facility], [place] [phone] Urobilinogen 2.0 mg/dl High 0.0-1.0 [facility] Comment on above: Performed By: #### C BCDIF, PT, GBCHEM, GBTSH, LIPA, MG, GBHCV, HAVIGM, HBCAB, HBSAG, RPR ####[facility] Oxi93150 [address] RdAddison Gilbert Hospitalrdon, [place] [phone] WBC 0-5 Normal 0-5 [facility] Comment on above: Performed By: #### C BCDIF, PT, GBCHEM, GBTSH, LIPA, MG, GBHCV, HAVIGM, HBCAB, HBSAG, RPR ####[facility] [id number] [address] RdAddison Gilbert Hospitalrdon, [place] [phone] CBCDIFon 04-24-2018 Abs Baso 0.02 k/uL Normal 0-0.2 [facility] Comment on above: Performed By: #### C BCDIF, PT, GBCHEM, GBTSH, LIPA, MG, GBHCV, HAVIGM, HBCAB, HBSAG, RPR ####[facility] [id number] [facility], [place] [phone] Abs [place] 1.23 k/uL High 0-0.8 [facility] Comment on above: Performed By: #### C BCDIF, PT, GBCHEM, GBTSH, LIPA, MG, GBHCV, HAVIGM, HBCAB, HBSAG, RPR ####[facility] [id number] [facility], [place] [phone] Abs Neut 7.41 k/uL Normal 1.8-7.7 [facility] Comment on above: Performed By: #### C BCDIF, PT, GBCHEM, GBTSH, LIPA, MG, GBHCV, HAVIGM, HBCAB, HBSAG, RPR ####[facility] [id number] [facility], [place] [phone] Basophils/100 WBC Auto (Bld) 0.2 % Normal 0-1 [facility] Comment on above: Performed By: #### C BCDIF, PT, GBCHEM, GBTSH, LIPA, MG, GBHCV, HAVIGM, HBCAB, HBSAG, RPR ####[facility] [id number] [facility], [place] [phone] Eosinophils Auto #/vol (Bld) 0.38 10*3/uL Normal 0-0.4 [facility] Comment on above: Performed By: #### C BCDIF, PT, GBCHEM, GBTSH, LIPA, MG, GBHCV, HAVIGM, HBCAB, HBSAG, RPR ####[facility] [id number] [facility], [place] [phone] Eosinophils/100 WBC Auto (Bld) 3.3 % Normal 0-4 [facility] Comment on above: Performed By: #### C BCDIF, PT, GBCHEM, GBTSH, LIPA, MG, GBHCV, HAVIGM, HBCAB, HBSAG, RPR ####[facility] [id number] [place], [place] [phone] Erythrocyte distribution width Auto Ratio (RBC) 14.6 % High 11.5-14.5 [facility] Comment on above: Performed By: #### C BCDIF, PT, GBCHEM, GBTSH, LIPA, MG, GBHCV, HAVIGM, HBCAB, HBSAG, RPR ####[facility] Spf29295 [place], [place] [phone] Hematocrit Auto Volume Fraction (Bld) 46.2 % Normal 41.0-53.0 [facility] Comment on above: Performed By: #### C BCDIF, PT, GBCHEM, GBTSH, LIPA, MG, GBHCV, HAVIGM, HBCAB, HBSAG, RPR ####[facility] [id number] [place], [place] [phone] Hemoglobin mass conc (Bld) 16.2 g/dL Normal 13.5-17.5 [facility] Comment on above: Performed By: #### C BCDIF, PT, GBCHEM, GBTSH, LIPA, MG, GBHCV, HAVIGM, HBCAB, HBSAG, RPR ####[facility] Mkp32478 [place], [place] [phone] Immature Gran 0.30 % Normal 0-1.9 [facility] Comment on above: Performed By: #### C BCDIF, PT, GBCHEM, GBTSH, LIPA, MG, GBHCV, HAVIGM, HBCAB, HBSAG, RPR ####[facility] Iko50551 [place], [place] [phone] Lymphocytes Auto #/vol (Bld) 2.56 10*3/uL Normal 1.0-4.0 [facility] Comment on above: Performed By: #### C BCDIF, PT, GBCHEM, GBTSH, LIPA, MG, GBHCV, HAVIGM, HBCAB, HBSAG, RPR ####[facility] [id number] [facility], [place] [phone] Lymphocytes/100 WBC Auto (Bld) 22.0 % Normal 22-44 [facility] Comment on above: Performed By: #### C BCDIF, PT, GBCHEM, GBTSH, LIPA, MG, GBHCV, HAVIGM, HBCAB, HBSAG, RPR ####[facility] [id number] [facility], [place] [phone] MCH Auto Entitic mass (RBC) 31.6 pG Normal 26-34 [facility] Comment on above: Performed By: #### C BCDIF, PT, GBCHEM, GBTSH, LIPA, MG, GBHCV, HAVIGM, HBCAB, HBSAG, RPR ####[facility] Enr65020 [place], [place] [phone] MCHC Auto mass conc (RBC) 35.1 g/dL Normal 31-37 [facility] Comment on above: Performed By: #### C BCDIF, PT, GBCHEM, GBTSH, LIPA, MG, GBHCV, HAVIGM, HBCAB, HBSAG, RPR ####[facility] [id number] [place], [place] [phone] MCV Auto Entitic volume (RBC) 90.1 fL Normal 80-100 [facility] Comment on above: Performed By: #### C BCDIF, PT, GBCHEM, GBTSH, LIPA, MG, GBHCV, HAVIGM, HBCAB, HBSAG, RPR ####[facility] [id number] [place], [place] [phone] Monocytes/100 WBC Auto (Bld) 10.6 % Normal 4-12 [facility] Comment on above: Performed By: #### C BCDIF, PT, GBCHEM, GBTSH, LIPA, MG, GBHCV, HAVIGM, HBCAB, HBSAG, RPR ####[facility] [id number] [place], [place] [phone] Neutrophils/100 WBC Auto (Bld) 63.6 % Normal 40-70 [facility] Comment on above: Performed By: #### C BCDIF, PT, GBCHEM, GBTSH, LIPA, MG, GBHCV, HAVIGM, HBCAB, HBSAG, RPR ####[facility] [id number] [facility], [place] [phone] NRBCs 0 /100 WBC Normal 0-0.9 [facility] Comment on above: Performed By: #### C BCDIF, PT, GBCHEM, GBTSH, LIPA, MG, GBHCV, HAVIGM, HBCAB, HBSAG, RPR ####[facility] She82081 [facility], [place] [phone] Platelets Auto #/vol (Bld) 188 10*3/uL Normal 150-450 [facility] Comment on above: Performed By: #### C BCDIF, PT, GBCHEM, GBTSH, LIPA, MG, GBHCV, HAVIGM, HBCAB, HBSAG, RPR ####[facility] [id number] [facility], [place] [phone] RBC Auto #/vol (Bld) 5.13 10*6/uL Normal 4.50-5.90 [facility] Comment on above: Performed By: #### C BCDIF, PT, GBCHEM, GBTSH, LIPA, MG, GBHCV, HAVIGM, HBCAB, HBSAG, RPR ####[facility] Smt03304 [facility], [place] [phone] WBC Auto #/vol (Bld) 11.63 10*3/uL High 4.5-11.0 [facility] Comment on above: Performed By: #### C BCDIF, PT, GBCHEM, GBTSH, LIPA, MG, GBHCV, HAVIGM, HBCAB, HBSAG, RPR ####[facility] [id number] [facility], [place] [phone] [place] Profon 2017 Albumin mass conc 5.0 g/dL Normal 3.5-5.0 [facility] Comment on above: Performed By: #### C BCDIF, PT, GBCHEM, GBTSH, LIPA, MG, GBHCV, HAVIGM, HBCAB, HBSAG, RPR ####[facility] Nbr33052 [address]Add[facility] Hospitalrdon, [place] [phone] Alkaline Phos 137 U/L High 38-125 [facility] Comment on above: Performed By: #### C BCDIF, PT, GBCHEM, GBTSH, LIPA, MG, GBHCV, HAVIGM, HBCAB, HBSAG, RPR ####[facility] Kil50464 [facility], [place] [phone] ALT enzyme act/vol 54 U/L Normal 21-72 [facility] Comment on above: Performed By: #### C BCDIF, PT, GBCHEM, GBTSH, LIPA, MG, GBHCV, HAVIGM, HBCAB, HBSAG, RPR ####[facility] [id number] [facility], [place] [phone] Amylase enzyme act/vol 156 U/L High 30-110 [facility] Comment on above: Performed By: #### C BCDIF, PT, GBCHEM, GBTSH, LIPA, MG, GBHCV, HAVIGM, HBCAB, HBSAG, RPR ####[facility] [id number] [facility], [place] [phone] Anion gap 3 molar conc 18 mmol/L High 0-15 [facility] Comment on above: Performed By: #### C BCDIF, PT, GBCHEM, GBTSH, LIPA, MG, GBHCV, HAVIGM, HBCAB, HBSAG, RPR ####[facility] Txq09128 [address], [place] [phone] AST enzyme act/vol 102 U/L High 17-59 [facility] Comment on above: Performed By: #### C BCDIF, PT, GBCHEM, GBTSH, LIPA, MG, GBHCV, HAVIGM, HBCAB, HBSAG, RPR ####[facility] Ebx83069 [facility] CenterEdwinardon, [place] [phone] Bilirubin Ql (U) 1.5 mg/dL High 0.2-1.3 [facility] Comment on above: Performed By: #### C BCDIF, PT, GBCHEM, GBTSH, LIPA, MG, GBHCV, HAVIGM, HBCAB, HBSAG, RPR ####[facility] [id number] [facility], [place] [phone] Calcium mass conc 10.0 mg/dL Normal 8.4-10.2 [facility] Comment on above: Performed By: #### C BCDIF, PT, GBCHEM, GBTSH, LIPA, MG, GBHCV, HAVIGM, HBCAB, HBSAG, RPR ####[facility] [id number] [facility], [place] [phone] Chloride molar conc 91 mmol/L Low 98-107 [facility] Comment on above: Performed By: #### C BCDIF, PT, GBCHEM, GBTSH, LIPA, MG, GBHCV, HAVIGM, HBCAB, HBSAG, RPR ####[facility] Hct62273 [facility], [place] [phone] Cholesterol mass conc 155 mg/dL Normal 100-199 [facility] Comment on above: Performed By: #### C BCDIF, PT, GBCHEM, GBTSH, LIPA, MG, GBHCV, HAVIGM, HBCAB, HBSAG, RPR ####[facility] [id number] [facility] [place] [phone] CO2 molar conc 27 mmol/L Normal 22-30 [facility] Comment on above: Performed By: #### C BCDIF, PT, GBCHEM, GBTSH, LIPA, MG, GBHCV, HAVIGM, HBCAB, HBSAG, RPR ####[facility] [id number] [facility], [place] [phone] Creatinine mass conc 1.47 mg/dL High 0.66-1.25 [facility] Comment on above: Performed By: #### C BCDIF, PT, GBCHEM, GBTSH, LIPA, MG, GBHCV, HAVIGM, HBCAB, HBSAG, RPR ####[facility] [id number] [place], [place] [phone] eGFR Amer >60 Normal >60 [facility] Comment on above: Result Comment: MDRD calculation used for eGFR results. Performed By: #### C BCDIF, PT, GBCHEM, GBTSH, LIPA, MG, GBHCV, HAVIGM, HBCAB, HBSAG, RPR ####[facility] [id number] [place], [place] [phone] eGFR non Am 53 mL/min/1.73 2 Low >60 [facility] Comment on above: Performed By: #### C BCDIF, PT, GBCHEM, GBTSH, LIPA, MG, GBHCV, HAVIGM, HBCAB, HBSAG, RPR ####[facility] [id number] [place], [place] [phone] Gamma glutamyl transferase [Enzymatic activity/volume] in Serum or Plasma 602 U/L High 15-73 [facility] Comment on above: Performed By: #### C BCDIF, PT, GBCHEM, GBTSH, LIPA, MG, GBHCV, HAVIGM, HBCAB, HBSAG, RPR ####[facility] [id number] [place], [place] [phone] Glucose mass conc 98 mg/dL Normal 74-106 [facility] Comment on above: Performed By: #### C BCDIF, PT, GBCHEM, GBTSH, LIPA, MG, GBHCV, HAVIGM, HBCAB, HBSAG, RPR ####[facility] [id number] [place], [place] [phone] LDH 550 U/L Normal 318-618 [facility] Comment on above: Performed By: #### C BCDIF, PT, GBCHEM, GBTSH, LIPA, MG, GBHCV, HAVIGM, HBCAB, HBSAG, RPR ####[facility] [id number] [place], [place] [phone] Phosphate mass conc 3.9 mg/dL Normal 2.5-4.5 [facility] Comment on above: Performed By: #### C BCDIF, PT, GBCHEM, GBTSH, LIPA, MG, GBHCV, HAVIGM, HBCAB, HBSAG, RPR ####[facility] Clinical [id number] [place], [place] [phone] Potassium molar conc 3.7 mmol/L Normal 3.5-5.1 [facility] Comment on above: Performed By: #### C BCDIF, PT, GBCHEM, GBTSH, LIPA, MG, GBHCV, HAVIGM, HBCAB, HBSAG, RPR ####[facility] [id number] [place], [place] [phone] Protein mass conc 8.7 g/dL High 6.2-8.2 [facility] Comment on above: Performed By: #### C BCDIF, PT, GBCHEM, GBTSH, LIPA, MG, GBHCV, HAVIGM, HBCAB, HBSAG, RPR ####[facility] Clinical [id number] [place], [place] [phone] Sodium molar conc 132 mmol/L Low 137-145 [facility] Comment on above: Performed By: #### C BCDIF, PT, GBCHEM, GBTSH, LIPA, MG, GBHCV, HAVIGM, HBCAB, HBSAG, RPR ####[facility] Clinical [id number] [place], [place] [phone] Triglyceride mass conc 160 mg/dL High 35-150 [facility] Comment on above: Performed By: #### C BCDIF, PT, GBCHEM, GBTSH, LIPA, MG, GBHCV, HAVIGM, HBCAB, HBSAG, RPR ####[facility] Clinical [id number] [address], [place] [phone] Urate mass conc 7.2 mg/dL Normal 3.5-8.5 [facility] Comment on above: Performed By: #### C BCDIF, PT, GBCHEM, GBTSH, LIPA, MG, GBHCV, HAVIGM, HBCAB, HBSAG, RPR ####[facility] Clinical [id number] [address]Add[address] [facility], [place] [phone] Urea nitrogen mass conc 15 mg/dL Normal 9-20 [facility] Comment on above: Performed By: #### C BCDIF, PT, GBCHEM, GBTSH, LIPA, MG, GBHCV, HAVIGM, HBCAB, HBSAG, RPR ####[facility] [id number] [facility], [place] [phone] [facility] Hep C Abon 018 [facility] Hep C Ab Nonreactive Normal Nonreactive [facility] Comment on above: Performed By: #### C BCDIF, PT, GBCHEM, GBTSH, LIPA, MG, GBHCV, HAVIGM, HBCAB, HBSAG, RPR ####[facility] [id number] [facility], [place] [phone] [facility] TSHon 04-24-2018 Thyrotropin Qn 3.280 uU/mL Normal 0.465-4.680 [facility] Comment on above: Performed By: #### C BCDIF, PT, GBCHEM, GBTSH, LIPA, MG, GBHCV, HAVIGM, HBCAB, HBSAG, RPR ####[facility] Clinical [id number] [address]Add[address] [facility]rd[facility], [place] [phone] Hep A IgM Antibodyon 018 Hep A IgM Antibody Nonreactive Normal Nonreactive [facility] Comment on above: Performed By: #### C BCDIF, PT, GBCHEM, GBTSH, LIPA, MG, GBHCV, HAVIGM, HBCAB, HBSAG, RPR ####[facility] [id number] [facility] [place], [place] [phone] Hep B Core Total Abon 2017 Hep B Core Total Ab Nonreactive Normal Nonreactive [facility] Comment on above: Performed By: #### C BCDIF, PT, GBCHEM, GBTSH, LIPA, MG, GBHCV, HAVIGM, HBCAB, HBSAG, RPR ####[facility] [id number] [place], [place] [phone] Hep B Surf Antigenon 018 Hep B Surf Antigen Nonreactive Normal Nonreactive [facility] Comment on above: Performed By: #### C BCDIF, PT, GBCHEM, GBTSH, LIPA, MG, GBHCV, HAVIGM, HBCAB, HBSAG, RPR ####[facility] [id number] [facility] [place], [place] [phone] Lipaseon 04-24-2018 Lipase enzyme act/vol 1540 U/L High 23-300 [facility] Comment on above: Performed By: #### C BCDIF, PT, GBCHEM, GBTSH, LIPA, MG, GBHCV, HAVIGM, HBCAB, HBSAG, RPR ####[facility] [id number] [place], [place] [phone] Magnesiumon 04-24-2018 Magnesium mass conc 2.0 mg/dL Normal 1.3-2.3 [facility] Comment on above: Performed By: #### C BCDIF, PT, GBCHEM, GBTSH, LIPA, MG, GBHCV, HAVIGM, HBCAB, HBSAG, RPR ####[facility] [id number] [place], [place] [phone] Protimeon 04-24-2018 INR Coag RelTime (Bld) 1.0 {INR} Normal 0.6-1.1 [facility] Comment on above: Result Comment: [...] GBHCV, HAVIGM, HBCAB, HBSAG, RPR ####[facility] [id number] [place], [place] [phone] PT Sec 12.3 sec Normal 11.8-14.1 [facility] Comment on above: Performed By: #### C BCDIF, PT, GBCHEM, GBTSH, LIPA, MG, GBHCV, HAVIGM, HBCAB, HBSAG, RPR ####[facility] [id number] [place], [place] [phone] Vital Signs Date Time Vital Sign Value Performing Clinician Facility 06-29-2023 10:54-0500 Body temperature 97.9 [degF] MD Rylan Andrea Work Phone: [facility] 06-29-2023 10:54-0500 Body weight 69.85 kg MD Rylan Andrea Work Phone: [facility] 06-29-2023 10:54-0500 Diastolic blood pressure 88 mm[Hg] MD Rylan Andrea Work Phone: [facility] 06-29-2023 10:54-0500 Heart rate 88 /min MD Rylan Andrea Work Phone: [facility] 06-29-2023 10:54-0500 Respiratory rate 20 /min MD Rylan Andrea Work Phone: [facility] 06-29-2023 10:54-0500 SaO2% (BldA) [Mass fraction] 97 % MD Rylan Andrea Work Phone: [facility] 06-29-2023 10:54-0500 Systolic blood pressure 140 mm[Hg] MD Rylan Andrea Work Phone: [facility] 12-25-2022 11:05-0400 Body temperature 97.7 [degF] MD Rylan Andrea Work Phone: [facility] 12-25-2022 11:05-0400 Body weight 66.95 kg MD Rylan Andrea Work Phone: [facility] 12-25-2022 11:05-0400 Diastolic blood pressure 85 mm[Hg] MD Rylan Andrea Work Phone: [facility] 12-25-2022 11:05-0400 Heart rate 94 /min MD Rylan Andrea Work Phone: [facility] 12-25-2022 11:05-0400 Respiratory rate 18 /min MD Rylan Andrea Work Phone: [facility] 12-25-2022 11:05-0400 SaO2% (BldA) [Mass fraction] 97 % MD Rylan Andrea Work Phone: [facility] 12-25-2022 11:05-0400 Systolic blood pressure 136 mm[Hg] MD Rylan Andrea Work Phone: [facility] 11-01-2022 10:41-0400 Body temperature 97.6 [degF] MD Rylan Andrea Work Phone: [facility] 11-01-2022 10:41-0400 Body weight 68.26 kg MD Rylan Andrea Work Phone: [facility] 11-01-2022 10:41-0400 Diastolic blood pressure 82 mm[Hg] MD Rylan Andrea Work Phone: [facility] 11-01-2022 10:41-0400 Heart rate 103 /min MD Rylan Andrea Work Phone: [facility] 11-01-2022 10:41-0400 Respiratory rate 18 /min MD Rylan Andrea Work Phone: [facility] 11-01-2022 10:41-0400 SaO2% (BldA) [Mass fraction] 99 % MD Rylan Andrea Work Phone: [facility] 11-01-2022 10:41-0400 Systolic blood pressure 121 mm[Hg] MD Rylan Andrea Work Phone: [facility] 10-26-2022 12:05-0400 Body height 182.88 cm MD Rylan Andrea Work Phone: [facility] 10-26-2022 12:05-0400 Body temperature 97.6 [degF] MD Rylan Andrea Work Phone: [facility] 10-26-2022 12:05-0400 Body weight 69 kg MD Rylan Andrea Work Phone: [facility] 10-26-2022 12:05-0400 Diastolic blood pressure 77 mm[Hg] MD Rylan Andrea Work Phone: [facility] 10-26-2022 12:05-0400 Heart rate 100 /min MD Rylan Andrea Work Phone: [facility] 10-26-2022 12:05-0400 Respiratory rate 20 /min MD Rylan Andrea Work Phone: [facility] 10-26-2022 12:05-0400 SaO2% (BldA) [Mass fraction] 98 % MD Rylan Andrea Work Phone: [facility] 10-26-2022 12:05-0400 Systolic blood pressure 120 mm[Hg] MD Rylan Andrea Work Phone: [facility] 09-19-2022 09:33-0400 Body weight 70.39 kg MD Rylan Andrea Work Phone: [facility] 09-19-2022 09:33-0400 Diastolic blood pressure 85 mm[Hg] MD Rylan Andrea Work Phone: [facility] 09-19-2022 09:33-0400 Heart rate 85 /min MD Rylan Andrea Work Phone: [facility] 09-19-2022 09:33-0400 Respiratory rate 20 /min MD Rylan Andrea Work Phone: [facility] 09-19-2022 09:33-0400 SaO2% (BldA) [Mass fraction] 97 % MD Rylan Andrea Work Phone: [facility] 09-19-2022 09:33-0400 Systolic blood pressure 128 mm[Hg] MD Rylan Andrea Work Phone: [facility] 09-04-2022 11:26-0400 Body temperature 98.6 [degF] MD Rylan Andrea Work Phone: [facility] 06-22-2022 13:07-0500 Body height 182.88 cm MD Rylan Andrea Work Phone: [facility] 06-22-2022 13:07-0500 Body temperature 98 [degF] MD Rylan Andrea Work Phone: [facility] 06-22-2022 13:07-0500 Body weight 73.2 kg MD Rylan Andrea Work Phone: [facility] 06-22-2022 13:07-0500 Diastolic blood pressure 88 mm[Hg] MD Rylan Andrea Work Phone: [facility] 06-22-2022 13:07-0500 Heart rate 112 /min MD Rylan Andrae Work Phone: [facility] 06-22-2022 13:07-0500 Respiratory rate 20 /min MD Rylan Andrea Work Phone: [facility] 06-22-2022 13:07-0500 SaO2% (BldA) [Mass fraction] 99 % MD Rylan Andrea Work Phone: [facility] 06-22-2022 13:07-0500 Systolic blood pressure 137 mm[Hg] MD Rylan Andrea Work Phone: [facility] 06-17-2022 12:00-0500 Body temperature 98.1 [degF] MD Rlyan Andrea Work Phone: [facility] 06-17-2022 12:00-0500 Diastolic blood pressure 91 mm[Hg] MD Rylan Andrea Work Phone: [facility] 06-17-2022 12:00-0500 Heart rate 94 /min MD Rylan Andrea Work Phone: [facility] 06-17-2022 12:00-0500 Respiratory rate 20 /min MD Rylan Andrea Work Phone: [facility] 06-17-2022 12:00-0500 SaO2% (BldA) [Mass fraction] 97 % MD Rylan Andrea Work Phone: [facility] 06-17-2022 12:00-0500 Systolic blood pressure 142 mm[Hg] MD Rylan Andrea Work Phone: [facility] 06-16-2022 09:51-0500 Body height 182.88 cm MD Rylan Andrea Work Phone: [facility] 06-16-2022 09:51-0500 Body mass index (BMI) [Ratio] 20.2 kg/m2 MD Rylan Andrae Work Phone: [facility] 06-16-2022 09:51-0500 Body weight 67.9 kg MD Rylan Andrea Work Phone: [facility] 06-15-2022 12:00-0500 Body height 185.42 cm Rachid Chase Other [employer] Other 06-15-2022 12:00-0500 Body mass index (BMI) [Ratio] 19.63 kg/m2 Kamal Chaban Other [employer] Other 06-15-2022 12:00-0500 Body temperature 97 [degF] Celsoal Chaban Other [employer] Other 06-15-2022 12:00-0500 Body weight 67.5 kg Celsoal Chaban Other [employer] Other 06-15-2022 12:00-0500 Diastolic blood pressure 82 mm[Hg] Celsoal Chaban Other [employer] Other 06-15-2022 12:00-0500 Respiratory rate 20 /min Rachid Blandban Other [employer] Other 06-15-2022 12:00-0500 SaO2% (BldA) [Mass fraction] 98 % Celsoal Chaban Other [employer] Other 06-15-2022 12:00-0500 Systolic blood pressure 114 mm[Hg] Rachid Chaban Other [employer] Other 05-31-2022 15:30-0500 Body height 185.42 cm Rachid Chaban Other [employer] Other 05-31-2022 15:30-0500 Body mass index (BMI) [Ratio] 19.92 kg/m2 Rachid Chaban Other [employer] Other 05-31-2022 15:30-0500 Body temperature 97.6 [degF] Celsoal Chaban Other [employer] Other 05-31-2022 15:30-0500 Body weight 68.49 kg Rachid Chase Other [facility] [employer] Other 05-31-2022 15:30-0500 Diastolic blood pressure 80 mm[Hg] Rachid Blandban Other [employer] Other 05-31-2022 15:30-0500 Respiratory rate 20 /min Rachid Chase Other [employer] Other 05-31-2022 15:30-0500 SaO2% (BldA) [Mass fraction] 98 % Rachid Chase Other [employer] Other 05-31-2022 15:30-0500 Systolic blood pressure 122 mm[Hg] Rachid Chase Other [facility] [employer] Other 04-21-2022 09:50-0500 Diastolic blood pressure 74 mm[Hg] MD Rylan Andrea Work Phone: [facility] 04-21-2022 09:50-0500 Heart rate 80 /min MD Rylan Andrea Work Phone: [facility] 04-21-2022 09:50-0500 Respiratory rate 18 /min MD Rylan Andrea Work Phone: [facility] 04-21-2022 09:50-0500 SaO2% (BldA) [Mass fraction] 99 % MD Rylan Andrea Work Phone: [facility] 04-21-2022 09:50-0500 Systolic blood pressure 111 mm[Hg] MD Rylan Andrea Work Phone: [facility] 04-21-2022 08:21-0500 Body height 182.88 cm MD Rylan Andrea Work Phone: [facility] 04-21-2022 08:21-0500 Body weight 70.3 kg MD Rylan Andrea Work Phone: [facility] 04-18-2022 13:59-0500 Diastolic blood pressure 82 mm[Hg] MD Rylan Andrea Work Phone: [facility] 04-18-2022 13:59-0500 Heart rate 99 /min MD Rylan Andrea Work Phone: [facility] 04-18-2022 13:59-0500 Respiratory rate 20 /min MD Rylan Andrea Work Phone: [facility] 04-18-2022 13:59-0500 SaO2% (BldA) [Mass fraction] 99 % MD Rylan Andrea Work Phone: [facility] 04-18-2022 13:59-0500 Systolic blood pressure 117 mm[Hg] MD Rylan Andrea Work Phone: [facility] 04-18-2022 12:41-0500 Body height 185.42 cm MD Rylan Andrea Work Phone: [facility] 04-18-2022 12:41-0500 Body weight 72.12 kg MD Rylan Andrea Work Phone: [facility] 04-14-2022 11:23-0500 Body temperature 98.3 [degF] MD Rylan Andrea Work Phone: [facility] 04-14-2022 11:23-0500 Body weight 70.3 kg MD Rylan Andrea Work Phone: [facility] 04-14-2022 11:23-0500 Diastolic blood pressure 93 mm[Hg] MD Rylan Andrea Work Phone: [facility] 04-14-2022 11:23-0500 Heart rate 95 /min MD Rylan Andrea Work Phone: [facility] 04-14-2022 11:23-0500 Respiratory rate 20 /min MD Rylan Andrea Work Phone: [facility] 04-14-2022 11:23-0500 SaO2% (BldA) [Mass fraction] 100 % MD Rylan Andrea Work Phone: [facility] 04-14-2022 11:23-0500 Systolic blood pressure 130 mm[Hg] MD Rylan Andrea Work Phone: [facility] 04-11-2022 16:03-0500 Body temperature 97.5 [degF] MD Rylan Andrea Work Phone: [facility] 04-11-2022 16:03-0500 Diastolic blood pressure 88 mm[Hg] MD Rylan Andrea Work Phone: [facility] 04-11-2022 16:03-0500 Heart rate 89 /min MD Rylan Andrea Work Phone: [facility] 04-11-2022 16:03-0500 Respiratory rate 15 /min MD Rylan Andrea Work Phone: [facility] 04-11-2022 16:03-0500 SaO2% (BldA) [Mass fraction] 97 % MD Rylan Andrea Work Phone: [facility] 04-11-2022 16:03-0500 Systolic blood pressure 125 mm[Hg] MD Rylan Andrea Work Phone: [facility] 04-11-2022 05:07-0500 Body weight 67.7 kg MD Rylan Andrea Work Phone: [facility] 04-10-2022 15:56-0500 Body height 182.88 cm MD Rylan Andrea Work Phone: [facility] 04-10-2022 15:56-0500 Body temperature 98.2 [degF] MD Rylan Andrea Work Phone: [facility] 04-10-2022 15:56-0500 Body weight 66.7 kg MD Rylan Andrea Work Phone: [facility] 04-10-2022 15:56-0500 Diastolic blood pressure 99 mm[Hg] MD Rylan Andrea Work Phone: [facility] 04-10-2022 15:56-0500 Heart rate 99 /min MD Rylan Andrea Work Phone: [facility] 04-10-2022 15:56-0500 Respiratory rate 20 /min MD Rylan Andrea Work Phone: [facility] 04-10-2022 15:56-0500 SaO2% (BldA) [Mass fraction] 98 % MD Rylan Andrea Work Phone: [facility] 04-10-2022 15:56-0500 Systolic blood pressure 148 mm[Hg] MD Rylan Andrea Work Phone: [facility] 02-27-2022 14:35-0400 Body height 182.88 cm MD Rylan Andrea Work Phone: [facility] 02-27-2022 14:35-0400 Body temperature 97.7 [degF] MD Rylan Andrea Work Phone: [facility] 02-27-2022 14:35-0400 Body weight 70.35 kg MD Rylan Andrea Work Phone: [facility] 02-27-2022 14:35-0400 Diastolic blood pressure 90 mm[Hg] MD Rylan Andrea Work Phone: [facility] 02-27-2022 14:35-0400 Heart rate 80 /min MD Rylan Andrea Work Phone: [facility] 02-27-2022 14:35-0400 Respiratory rate 20 /min MD Rylan Andrea Work Phone: [facility] 02-27-2022 14:35-0400 SaO2% (BldA) [Mass fraction] 99 % MD Rylan Andrea Work Phone: [facility] 02-27-2022 14:35-0400 Systolic blood pressure 138 mm[Hg] MD Rylan Andrea Work Phone: [facility] 09-13-2021 16:00-0400 Body height 185.42 cm Anita Lincoln Other [employer] Other 09-13-2021 16:00-0400 Body mass index (BMI) [Ratio] 20.45 kg/m2 Anita Lincoln Other [employer] Other 09-13-2021 16:00-0400 Body temperature 99.4 [degF] Anita Lincoln Other [employer] Other 09-13-2021 16:00-0400 Body weight 70.31 kg Anita Lincoln Other [employer] Other 09-13-2021 16:00-0400 Diastolic blood pressure 82 mm[Hg] Anita Lincoln Other [employer] Other 09-13-2021 16:00-0400 Respiratory rate 18 /min Anita Lincoln Other [employer] Other 09-13-2021 16:00-0400 SaO2% (BldA) [Mass fraction] 97 % Anita Lincoln Other [employer] Other 09-13-2021 16:00-0400 Systolic blood pressure 160 mm[Hg] Anita Gascaw Other [employer] Other 09-08-2021 10:09-0400 Diastolic blood pressure 78 mm[Hg] Rylan Andrea Work Phone: [address] Work Phone: 09-08-2021 10:09-0400 Systolic blood pressure 118 mm[Hg] Rylan A [employer] Work Phone: [facility] DO Work Phone: 09-08-2021 10:05-0400 Body height 182.88 cm Rylan A [employer] Work Phone: [facility] DO Work Phone: 09-08-2021 10:05-0400 Body mass index (BMI) [Ratio] 21.16 kg/m2 Rylan A [employer] Work Phone: [facility] DO Work Phone: 09-08-2021 10:05-0400 Body surface area Derived from formula 1.92 m2 Rylan Krystina [employer] Work Phone: [facility] DO Work Phone: 09-08-2021 10:05-0400 Body weight 70.76 kg Rylan A [employer] Work Phone: [facility] DO Work Phone: 09-08-2021 10:05-0400 Diastolic blood pressure 76 mm[Hg] Rylan Krystina [employer] Work Phone: [facility] DO Work Phone: 09-08-2021 10:05-0400 Heart rate 96 /min Rylan A [employer] Work Phone: [facility] DO Work Phone: 09-08-2021 10:05-0400 Systolic blood pressure 120 mm[Hg] Rylan Flaherty [employer] Work Phone: [facility] DO Work Phone: 09-08-2021 10:05-0400 20 1 Rylan A Andrea Work Phone: [facility] DO Work Phone: Comment on above: PHQ-9 TS Encounters Encounter Date Encounter Type Care Provider Facility Start: 01-15-2024 End: 01-15-2024 ambulatory MARILU WARCHOL Not Available Start: 01-11-2024 ambulatory Facility:[facility] Start: 01-10-2024 End: 01-10-2024 ambulatory KAROL Narinder LUZ Not Available Start: 12-25-2023 End: 12-25-2023 ambulatory RYLAN Krystina ANDREA Not Available Start: 12-03-2023 End: 12-03-2023 ambulatory MARILU WARCHOL Not Available Start: 11-12-2023 End: 11-12-2023 ambulatory MARILU WARCHOL Not Available Start: 10-31-2023 End: 10-31-2023 ambulatory FLORINDA MONK Not Available Start: 10-17-2023 ambulatory Rylan Andrea Facility:[facility] Start: 10-04-2023 End: 10-04-2023 ambulatory MARILU WARCHOL Not Available Start: 09-19-2023 End: 09-19-2023 ambulatory MARILU WARCHOL Not Available Start: 09-11-2023 ambulatory RYLAN ANDREA [facility] Start: 09-11-2023 End: 09-11-2023 ambulatory MARILU WARCHOL Not Available Start: 08-16-2023 End: 08-16-2023 ambulatory RYLAN A EMRE Not Available Start: 06-29-2023 End: 06-29-2023 ambulatory MD Rylan Andrea Work Phone: [facility] Work Phone: Start: 06-29-2023 End: 06-29-2023 Patient encounter procedure MD Rylan Andrea Work Phone: [facility] Work Phone: Start: 06-29-2023 Registered Recurring MD Rylan Andrea Work Phone: [facility] Work Phone: Start: 06-25-2023 External Result Encounter Estela Varma DO Work Phone: [facility] External Department Unsolicited Start: 06-25-2023 External Result Encounter Estela Varma DO Work Phone: [facility] External Department Unsolicited Start: 04-12-2023 End: 04-12-2023 ambulatory MARILU BONNER Not Available Start: 12-25-2022 End: 12-25-2022 ambulatory MD Rylan Andrea Work Phone: [facility] Work Phone: Start: 12-25-2022 End: 12-25-2022 Registered Recurring MD Rylan Andrea Work Phone: [facility] Work Phone: Start: 11-01-2022 End: 11-01-2022 ambulatory MD Rylan [facility]: [facility] [facility] Work Phone: Start: 11-01-2022 End: 11-01-2022 Registered Recurring MD Rylan Andrea Work Phone: [facility] Work Phone: Start: 10-26-2022 End: 10-26-2022 Emergency department patient visit MD Rylan Andrea Work Phone: [facility] Work Phone: Start: 10-26-2022 Registered Recurring MD Rylan Andrea Work Phone: [facility] Work Phone: Start: 10-18-2022 End: 10-18-2022 ambulatory MD Rylan Andrea Work Phone: [facility] Work Phone: Start: 10-18-2022 End: 10-18-2022 Patient encounter procedure MD Rylan Andrea Work Phone: [facility] [place] Work Phone: Start: 10-10-2022 End: 10-10-[address] RYLAN ANDREA Facility:H1 Start: 10-03-2022 End: 10-03-[address] RYLAN ANDREA Facility:H1 Start: 09-19-2022 End: 09-19-2022 ambulatory MD Rylan Andrea Work Phone: [facility] Work Phone: Start: 09-19-2022 End: 09-19-2022 Registered Recurring MD Rylan Andrea [facility] Phone: [facility] Work Phone: Start: 09-19-2022 Registered Recurring MD Rylan Andrea Work Phone: [facility] Work Phone: Start: 09-11-2022 End: 09-11-[address] RYLAN ANDREA Facility:H1 Start: 09-08-2022 End: 09-08-[address] RYLAN ANDREA Facility:H1 Start: 09-04-2022 End: 09-04-[address] RYLAN ANDREA Facility:H1 Start: 09-01-2022 End: 09-02-[address] RYLAN ANDREA Facility:H1 Start: 08-27-2022 End: 08-27-[address] MELANI IBRAHIM Facility:H1 Start: 06-22-2022 End: 06-22-2022 ambulatory MD Rylan Andrea Work Phone: [facility] Work Phone: Start: 06-22-2022 End: 06-22-2022 Registered Recurring MD Rylan Andrea Work Phone: [facility] Work Phone: Start: 06-18-2022 End: 06-18-[address] JESSE RAMOS Facility:H1 Start: 06-16-2022 End: 06-17-2022 Admission to same day surgery center MD Rylan Andrea Work Phone: [facility] [place] Start: 06-15-2022 Office outpatient vi sit 25 minutes Kamal Chaban [facility] Start: 06-15-2022 End: 06-15-2022 ambulatory MD Rylan Andrea Work Phone: [facility] Work Phone: Start: 06-15-2022 End: 06-15-2022 Patient encounter procedure MD Rylan Andrea Work Phone: [facility] Work Phone: Start: 06-01-2022 End: 06-01-2022 ambulatory MD Rylan Andrea Work Phone: [facility] Work Phone: Start: 06-01-2022 End: 06-01-2022 Patient encounter procedure MD Rylan Andrea Work Phone: [facility] [place] Work Phone: Start: 05-31-2022 End: 05-31-2022 ambulatory Rachid Chase Other [facility] [employer] Other Start: 05-31-2022 Office outpatient ne w 45 minutes Kamal Chachinyere [facility] Start: 04-21-2022 End: 04-21-2022 Admission to same day surgery center MD Rylan Andrea Work Phone: [facility] [place] Start: 04-21-2022 End: 04-21-2022 ambulatory MD Rylan Andrea Work Phone: [facility] Work Phone: Start: 04-18-2022 End: 04-18-2022 Admission to same day surgery center MD Rylan Andrea Work Phone: [facility] [place] Start: 04-18-2022 End: 04-18-2022 ambulatory MD Rylan Andrea Work Phone: [facility] Work Phone: Start: 04-14-2022 End: 04-14-2022 ambulatory MD Rylan Andrea Work Phone: [facility] Work Phone: Start: 04-14-2022 End: 04-14-2022 Registered Recurring MD Rylan Andrea Work Phone: [facility] Start: 04-14-2022 Registered Recurring MD Rylan Andrea Work Phone: [facility] Start: 04-10-2022 End: 04-11-2022 Evaluation and management of inpatient MD Rylan Andrea Work Phone: [facility] Start: 04-10-2022 observation encounter MD Rylan Andrea Work Phone: [facility] Work Phone: Start: 04-10-2022 Registered Recurring MD Rylan Andrea Work Phone: [facility] Start: 02-27-2022 End: 02-27-2022 ambulatory MD Rylan Andrea Work Phone: [facility] Work Phone: Start: 02-27-2022 End: 02-27-2022 Registered Recurring MD Rylan Andrea Work Phone: [facility] Start: 11-29-2021 ambulatory Rylan Andrea [facility] ity: Start: 11-23-2021 End: 11-24-[address] MARCE PAGAN Facility:H1 Start: 09-13-2021 Chart Update Rylan Andrea Work Phone: [facility] DO Work Phone: Start: 09-13-2021 End: 09-13-2021 ambulatory Anita Lincoln Other [facility] [employer] Other Start: 09-13-2021 Office outpatient vi sit 25 minutes Anita Lincoln [facility] Start: 09-09-2021 ambulatory Rylan Andrea Facil [id number] Start: 09-09-2021 [facility], Provider: Lukas Oliveira, Status: Pen, Time: 1:00 PM Rylan Andrea Work Phone: [facility] DO Work Phone: Start: 09-08-2021 Office consultation new/estab patient 80 min Rylan Andrea Work Phone: [facility] DO Work Phone: Start: 09-08-2021 ambulatory Estela Varma Facility: Start: 08-06-2020 End: 08-07-2020 Patient encounter procedure [facility] Start: 04-24-2018 End: 05-14-2018 Patient encounter procedure [facility] Krystina Psychiatric Procedures Date Procedure Procedure Detail Performing Clinician Start: 06-25-2023 Carcinoembryonic antigen cea Estela Varma DO Work Phone: Comment on above: Serial tumor marker results determined by assays using different manufacturers or methods may not be comparable. [facility] registered radiation therapist and method: STORYS.JPEL DXI, 2 SITE IMMUNOENZYMATIC SANDWICH ASSAY. Start: 06-25-2023 Positron emission to mography with computed tomography MD Rylan Andrea Work Phone: Start: 06-25-2023 Carcinoembryonic antigen cea Estela Varma DO Work Phone: Comment on above: Result Comment: Seri al tumor marker results determined by assays using different manufacturers or methods may not be comparable. [facility] registered radiation therapist and method: STORYS.JPEL DXI, 2 SITE IMMUNOENZYMATIC ?SANDWICH? ASSAY. PERFORMED BY: [address] [address] PATHOLOGIST ACTIVITIES COORDINATOR CATY DELCID M.D. Performed By: #### C BC, MARILU, LIPASE, FE and TIBC, CEA, T4F, TSH3, YUSUF, [id number], CMP #### [address] [address] [place] #### METH #### [facility] , Start: 06-25-2023 Complete blood count with white cell differential, automated Estela Rosales Kojo DO Work Phone: Start: 06-25-2023 GLUCOSE POCT GLUCOMETERS Estela Rosales Kojo DO Work Phone: Start: 03-30-2023 Carcinoembryonic antigen cea Rylan Andrea Comment on above: Result Comment: PERF ORMED BY: [place] [address] PATHOLOGIST ACTIVITIES COORDINATOR CATY DELCID M.D. Performed By: #### C BC, MARILU, LIPASE, FE and TIBC, CEA, T4F, TSH3, YUSUF, [id number], CMP #### [address] #### METH #### [facility] , Start: 12-22-2022 Positron emission to mography [...] Andrea Work Phone: Start: 10-24-2017 Colonoscopy Estela olivas DO Work Phone: Aerobic microbial culture [...] Rylan Andrea Work Phone: Total colonoscopy Rylan bray Work Phone: Comment on above: 2016; Vasectomy Rylan Andrea Work Phone: Plan of Treatment Date Care Activity Detail Author Start: 10-25-2027 Screening for malign ant neoplasm of colon [facility] Start: 11-11-2023 Influenza vaccination Influenza Vacc ine (#1) [facility] Comment on above: Postponed from 01/12 (Patient Refused) Start: 07-10-2023 End: 07-10-2023 Patient encounter procedure 07/10/2023 1:40 PM EST Office Visit [facility] [address] [place] [id number] Rylan Andrea MD [address] [place] [address] [facility] Start: 06-25-[address] [facility] Start: 12-11-[address] [facility] Start: 10-26-2022 Erythropoietin (EPO) [Units/volume] in Serum or Plasma [facility] Start: 06-17-[address] 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 Start: 04-21-[address] [facility] Start: 04-21-2022 Ultrasonic guidance for thoracentesis [facility] Start: 04-18-[address] [facility] Start: 04-18-2022 Ultrasonic guidance for thoracentesis [facility] Start: 04-14-[address] [facility] Start: 04-11-[address] [facility] Start: 04-11-2022 Troponin I.cardiac [Mass/volume] in Serum or Plasma by High sensitivity method [facility] Start: 04-10-2022 Referral to oncologist [facility] Start: 04-10-2022 Hospital admission [facility] Start: 04-10-[address] [facility] Start: 02-27-[address] [facility] Start: 11-29-2021 [facility], Provider: Lukas Oliveira, Status: [place], Time: 11:10 AM [facility], Provider: Lukas Oliveira, Status: Pen, Time: 11:10 AM -[facility] DO Work Phone: Start: 09-05-[address] [facility] Start: 08-22-[address] [facility] Start: 04-05-[address] [facility] Start: 02-01-[address] [facility] Start: 08-16-[address] [facility] Start: 08-05-[address] [facility] Start: 07-26-[address] [facility] Start: 07-06-[address] [facility] Start: 06-29-[address] [facility] Start: 06-14-[address] [facility] Start: 05-24-[address] [facility] Start: 05-03-[address] [facility] Start: 04-12-[address] [facility] Start: 04-12-[address] [facility] Start: 03-08-[address] [facility] Start: 02-24-[address] [facility] Start: 02-18-[address] [facility] Start: 02-16-2020 End: 02-16-[address] [facility] Start: 02-16-[address] [facility] Start: 02-10-[address] [facility] Start: 02-04-2020 End: 02-04-[address] [facility] Start: 01-28-[address] [facility] Start: 01-26-[address] [facility] Start: 01-26-[address] [facility] Start: 01-21-[address] [facility] Start: 01-21-2020 End: 01-21-[address] [facility] Start: 01-06-[address] [facility] Start: 01-05-[address] [facility] Start: 12-15-[address] [facility] Start: 11-24-[address] [facility] Start: 1965 Screening for malign ant neoplasm of colon [facility] Amylase [Enzymatic activity/volume] in Serum or Plasma Amylase Lab Routine 06/25/2023 7:57 AM EST [facility] Bacteria identified in Blood by Culture [facility] Blood culture for bacteria, including anaerobic screen Blood Culture [facility] Carcinoembryonic Ag [Mass/volume] in Serum or Plasma [facility] Comprehensive metabo lic 1999 panel - Serum or Plasma [facility] Comprehensive metabo lic 1999 panel - Serum or Plasma [facility] Comprehensive metabo lic 1999 panel - Serum or Plasma [facility] Comprehensive metabo lic 1999 panel - Serum or Plasma [facility] Comprehensive metabo lic 1999 panel - Serum or Plasma Comprehensive metabolic panel Lab Routine 06/25/2023 7:57 AM EST [facility] Work Phone: [facility] metabo lic 1999 panel - Serum or Plasma [facility] CT Abdomen and Pelvi s W contrast IV [facility] CT Abdomen and Pelvi s W contrast IV [facility] CT Abdomen and Pelvi s W contrast IV [facility] CT Chest W contrast IV [facility] CT Chest W contrast IV [facility] CT Chest W contrast IV [facility] Erythrocyte sediment ation rate by Photometric method [facility] Erythropoietin (EPO) [Units/volume] in Serum or Plasma [facility] Iron and Iron bindin g capacity panel - Serum or Plasma Iron and TIBC Lab Routine 06/25/2023 7:57 AM EST [facility] Lipase [Enzymatic activity/volume] in Serum or Plasma Lipase Lab Routine 06/25/2023 7:57 AM EST [facility] Methylmalonate [Moles/volume] in Serum or Plasma [facility] Patient Education [facility] Work Phone: Patient referral [facility] Work Phone: Thyrotropin [Units/v olume] in Serum or Plasma [facility] Ultrasonic guidance for thoracentesis [facility] Ultrasonic guidance for thoracentesis [facility] [place] Immunizations Immunization Date Immunization Notes Care Provider Fa mehul 09-01-2020 Pfizer-BioNTech COVID-19 Vacc 30 MCG/0.3ML Intramuscular Suspension Rylan A Andrea Work Phone: [facility] 07-30-2020 Pfizer-BioNTech COVID-19 Vacc 30 MCG/0.3ML Intramuscular Suspension Rylan Averyter Work Phone: [facility] 03-24-2020 influenza, injectabl e, quadrivalent, preservative free Rylan A Andrea Work Phone: [facility] 03-24-2020 influenza virus vaccine, unspecified formulation Estela Varma DO Work Phone: [facility] 03-15-2020 influenza, injectabl e, quadrivalent, preservative free Rylan A Andrea Work Phone: [facility] Payers Date Payer Category Payer Self-pay [id number] 2023 Private Health Insurance [id number] 2021 Medicaid [id number] 2021 Medicare MEDICARE MEDICAR E RAILROAD [id number] 2021-Present RUBEN AGUAYO RAILROAD MEDICARE [address] [address] [place] [address] Medicare [id number] 2017 Private Health Insurance [id number] 1965 Unknown [id number] 2..840.1.050600.3.579.2. 173 1965 Unknown [id number] 2.840.1.886305.3.579.2. 356 1965 Unknown [id number] 2.16.840.1.194799.3.579.2. 356 1965 Unknown [id number] 2.16840.1.379758.3.579.2. 356 1965 Unknown [id number] 2.16.840.1.918777.3.579.2. 593 1965 Unknown [id number] 2.16.840.1.093036.3.579.2. 593 1965 Unknown [id number] 2.16.840.1.460641.3.579.2. 593 1965 Unknown [id number] 2.16.840.1.021594.3.579.2. 593 1965 Unknown [id number] 2.16.840.1.195265.3.579.2. 593 1965 Unknown [id number] 2.16.840.1.318659.3.579.2. 593 1965 Unknown [id number] 2.16.840.1.664411.3.579.2. 593 1965 Unknown [id number] 2.16.840.1.232370.3.579.2. 593 1965 Unknown [id number] 2.16.840.1.029864.3.579.2. 593 1965 Unknown [id number] 2.16.840.1.088760.3.579.2. 1286 1965 Unknown [id number] 2.16.840.1.484982.3.579.2. 1286 1965 Unknown [id number] 2.16.840.1.857101.3.579.2. 1286 1965 Unknown [id number] 2.16.840.1.207385.3.579.2. 1286 1965 Unknown [id number] 2.16.840.1.833465.3.579.2. 1286 1965 Unknown [id number] 2.16.840.1.832197.3.579.2. 727 1965 Unknown [id number] 2.16.840.1.710773.3.579.2. 1259 1965 Unknown [id number] 2.16.840.1.665949.3.579.2. 1258 1965 Unknown [id number] 2.16.840.1.453928.3.579.2. 1258 1965 Unknown [id number] 2.16.840.1.725029.3.579.2. 1258 1965 Unknown [id number] 2.16.840.1.266129.3.579.2. 1258 1965 Unknown [id number] 2.16.840.1.964948.3.579.2. 1258 1965 Unknown [id number] 2.16.840.1.560252.3.579.2. 1258 1965 Unknown [id number] 2.16.840.1.766963.3.579.2. 1258 1965 Unknown [id number] 2.16.840.1.503473.3.579.2. 1258 1965 Unknown [id number] 2.16.840.1.145523.3.579.2. 1258 1965 Unknown [id number] 2.16.840.1.043595.3.579.2. 9 1959 Medicaid [id number] 1959 Medicare [id number] 1959 Private Health Insurance [id number] Private Health Insurance [facility] [employer] [id number] Unknown Unknown [id number] 2.16.840.1.988788.19 Unknown [id number] 2.16840.1.246414.3.579.2. 531 Social History Date Type Detail Facility Start: 04-12-2023 End: 04-13-2023 Occasional alcohol use Occasional alcohol use [facility] Comment on above: beer; medical marijuana ed ibles; quit 2020 1ppd; Start: 04-11-2023 End: 04-12-2023 Sex Assigned At [facility] Start: 02-27-2022 End: 09-04-2022 Tobacco smoking status NHIS Ex-smoker (finding) [facility] Start: 1965 Sex Assigned At Male F [facility] Start: 10-26-2022 End: 12-25-2022 Tobacco smoking status NHIS Never smoked tobacco (finding) [facility] Start: 04-12-2023 Tobacco smoking status KYIS Occasional tobacco smoker [facility] History of [...] of liquor daily. He is considering AA. [facility] Start: 1965 Sex Assigned At Not on file [facility] Start: 07-26-2022 Gender identity Identifies as male gender (finding) [facility] NEGATED: Highlighted rowStart: NINF History of tobacco use Passive smoker [facility] Medical Equipment Procedure Code Equipment Code Equipment Origin al Text Equipment Identifier Dates Repair, hernia, inguinal, with mesh Abdominal hernia surgical mesh, synthetic polymer, non-bioabsorbable [id number] FDA Start: 05-10-2020 Insertion of central venous catheter (CVC) with subcutaneous port for chemotherapy Vascular port/catheter ()[id number] FDA Start: 11-26-2019 Goals Date Patient Goal Desired Activity /State Functional Status Date Assessment Result Facility 06-17-2022 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 [facility] Work Phone: 04-11-2022 Functional status Patient at Baseline [facility] Work Phone: 04-10-2022 Functional status Patient at Baseline [facility] Work Phone: 09-08-2021 PHQ-9 [id number] Severe (20-27) -[employer] 250 DO Work Phone: Mental Status Date Assessment Result Facility 06-17-2022 Cognitive function Cognitive Sta tus Patient at Baseline [facility] Work Phone: 04-11-2022 Cognitive function Cognitive Sta tus Patient at Baseline [facility] Work Phone: 04-10-2022 Cognitive function Cognitive Sta tus Patient at Baseline [facility] Work Phone: Clinical Notes 11-18-2019 to 11-07-2022 Note Date & Type Note Facility 11-07-2022 Progress note Note Date/Time November 01, 2022 11:06[facility] [place] [address] Hem/Onc Follow Up Note - OP Signed with Addenda Patient: Kirill Echols MR#: [id number] : 1965 Acct:[id number] Age/Sex: 57 / M Type: REG RCR [...] nothing really new going on. HPI: 54-year-old -Ethiopian gentleman history of smoking 40 pack years [...] overwhelming for recurrence. He lives alone in [place]. His children live in [place]. His left him 8 months ago and [...] and urinary tract. Otherwise, there is an Nfqxsi-j-Tbcb on the left. The lungs demonstrate emphysematous [...] add on appointment after ER visit at [facility] on August 29, 2022 He went to [...] for coordination of care (as documented) and wlvg-az-samo counseling of patient and/or family. [facility] - Medical History Medical History: Medical History [...] 03/01/22 15:44 KB (Rec: 03/01/22 15:45 KB [id number]) Distress Screening Distress score of 4 or [...] % (Auto) 69.5, Lymph % (Auto) 15.0, [place] % (Auto) 12.1, Eos % (Auto) 2.6, Baso % (Auto) 0.8, Nucleat RBC Rel Count 0.2, Neut # (Auto) 4.1, Lymph # (Auto) 0.9 L, [place] # (Auto) 0.7, Eos # (Auto) 0.1, [...] <Electronically signed by ERINN Shane> 11/07/22 1149 [facility] Work Phone: 1(676) 404-568205-23-2023 Hospital Discharge instructionsAmbulatory Orders* Initiate Home Health Time Frame: 1 Day, Location: Determined By Patient * Oncology Histology Time Frame: 10/03/22, Location: Determined By Patient * Oncology Histology Time Frame: 10/17/22, Location: Determined By Patient * Oncology Histology Time Frame: 10/10/22, Location: Determined By Patient [facility] Work Phone: 1(861) 116-362005-09-2023 Progress note Author Estela Varma [facility] September 19, 2022 10:02am Note Date/Time September 19, 2022 9:50am [facility] [place] [address] Hem/Onc Follow Up Note - OP Signed Patient: Kirill Echols MR#: [id number] : 1965 Acct:[id number] Age/Sex: 57 / M Type: REG RCR [...] Weight loss Follow Up Instructions: f/u wth [facility] in 6 weeks, cbc, cmp b12, folate, [...] concerns voiced at this time. HPI: 54-year-old -Ethiopian gentleman history of smoking 40 pack years [...] overwhelming for recurrence. He lives alone in [place]. His children live in [place]. His left him 8 months ago and [...] and urinary tract. Otherwise, there is an Xtqqlr-f-Ckcp on the left. The lungs demonstrate emphysematous [...] add on appointment after ER visit at [facility] on August 29, 2022 He went to [...] for coordination of care (as documented) and mjeb-fk-rdya counseling of patient and/or family. [facility] - Medical History Medical History: Medical History [...] 03/01/22 15:44 KB (Rec: 03/01/22 15:45 KB [id number]) Distress Screening Distress score of 4 or [...] by Estela Varma II DO> 09/19/22 1002 [facility] Work Phone: 1(461) 838-875204-24-2023 Progress note Author Dixie Olivia [facility] September 04, 2022 12:17pm Note Date/Time September 04, 2022 12: 04pm [facility] [place] [address] Hem/Onc Follow Up Note - OP Signed Patient: Kirill Echols MR#: [id number] : 1965 Acct:[id number] Age/Sex: 57 / M Type: REG RCR Copies to: MD Rylan Vega MD~ Subjective Date/Time of Service: Date of Service: 09/04/2022 Time of Service: 11:56 Chief Complaint: Patient is here today for a follow up visit for small cell lung cancer. He went to [place] ER for chest pressure 08-27-[address] scan for review HPI: 54-year-old -Ethiopian gentleman history of smoking 40 pack years [...] overwhelming for recurrence. He lives alone in [place]. His children live in [place]. His left him 8 months ago and [...] and urinary tract. Otherwise, there is an Vxtsoz-v-Fdev on the left. The lungs demonstrate emphysematous [...] He is considering moving back down to [facility] where he is from. 02/27/22 he [...] add on appointment after ER visit at [facility] on August 29, 2022 He went to [...] and chronic left-sided chest complaints. [facility] - Medical History Medical History: Medical History [...] Reviewed 06/16/22 @ 19:33 by Jackie Fraga, MYRON-BC) H/O vasectomy H/O wrist surgery Right side, 2005 Hx of hernia repair - Family History Family History: Family History (Last Reviewed 06/16/22 @ 19:33 by Jackie Fraga, MYRON-BC) Mother Colon cancer Diabetes mellitus, type 2 [...] 03/01/22 15:44 KB (Rec: 03/01/22 15:45 KB [id number]) Distress Screening Distress score of 4 or [...] add on appointment after ER visit at [facility] on August 29, 2022 He went to [...] to home health care nurse at [facility]. 3.) Follow up with Dr. [...] for coordination of care (as documented) and vnph-lq-ggrr counseling of patient and/or family. Dictated By: Dixie Olivia APRN DD/ 1156 Signed By: <Electronically signed by ERINN Olivia> 09/04/22 1217 [facility] Work Phone: 1([phone]) 859-392402-09-2023 Progress note Author Dixie Olivia [facility] June 22, 2022 2:24pm Note Date/Time June 22, 2022 2 :16pm [facility] [place] [id number] Hem/Onc Follow Up Note - OP Signed Patient: Kirill Echols MR#: [id number] : 1965 Acct:[id number] Age/Sex: 57 / M Type: REG RCR Copies to: MD Rylan Vega MD~ Subjective Date/Time of Service: Date of Service: 06/22/2022 Time of Service: 14:09 Chief Complaint: Patient is here for a 2 month follow up with, had chest tube placed 06/16/2022. No concerns voiced at this time. HPI: 54-year-old -Ethiopian gentleman history of smoking 40 pack years [...] overwhelming for recurrence. He lives alone in [place]. His children live in [place]. His left him 8 months ago and [...] and urinary tract. Otherwise, there is an Zgekyh-e-Yjkf on the left. The lungs demonstrate emphysematous [...] He is considering moving back down to [facility] where he is from. 02/27/22 he [...] orthostasis or dizziness or palpitations. [facility] - Medical History Medical History: Medical History (Last Updated 06/16/22 @ 20:08 by Jackie Fraga, MYRON-BC) Adverse reaction to LUIS inhibitor drug Anemia [...] Reviewed 06/16/22 @ 19:33 by Jackie Fraga, MYRON-BC) Mother Colon cancer Diabetes mellitus, type 2 [...] 03/01/22 15:44 KB (Rec: 03/01/22 15:45 KB [id number]) Distress Screening Distress score of 4 or [...] for coordination of care (as documented) and eeae-ux-mwky counseling of patient and/or family. Dictated By: Dixie Olivia APRN DD/ 1409 Signed By: <Electronically signed by ERINN Olivia> 06/22/22 1424 [facility] Work Phone: 1(315) 482-596702-02-2023 Evaluation note* Encounter Date Diagnosis Assessment Notes [...] cell carcinoma of lung (ICD-10 - C34.90) [employer] Other 01-18-2023 Evaluation note* Encounter Date Diagnosis Assessment Notes Treatment Notes Treatment Clinical Notes May, Small cell carcinoma of lung (ICD-10 - C34.90) Please let me know lung CT scan to review schedule thoracentesis if needed May, Chronic obstructive pulmonary disease, unspecified COPD type (ICD-10 - J44.9) May, Shortness of breath (ICD-10 - R06.02) May, Pleural effusion (ICD-10 - J90) [employer] Other 12-02-2022 Progress note Author Estela Varma [facility] April 14, 2022 12:02pm Note Date/Time April 14, 2022 1 1:50am [facility] [place] [address] Hem/Onc Follow Up Note - OP Signed Patient: Kirill Echols MR#: [id number] : 1965 Acct:[id number] Age/Sex: 56 / M Type: REG RCR [...] concerns voiced at this time. HPI: 54-year-old -Ethiopian gentleman history of smoking 40 pack years [...] overwhelming for recurrence. He lives alone in [place]. His children live in [place]. His left him 8 months ago and [...] and urinary tract. Otherwise, there is an Wyglle-w-Phub on the left. The lungs demonstrate emphysematous [...] He is considering moving back down to [facility] where he is from. 02/27/22 he [...] fluid aspiration R side before he goes. 12/2/22 he is feeling increasingly winded recently. Still [...] for coordination of care (as documented) and ovcr-ph-abmt counseling of patient and/or family. [facility] - Medical History Medical History: Medical History [...] 03/01/22 15:44 KB (Rec: 03/01/22 15:45 KB [id number]) Distress Screening Distress score of 4 or [...] % (Auto) 71.4, Lymph % (Auto) 16.2, [place] % (Auto) 8.6, Eos % (Auto) 2.9, Baso % (Auto) 0.9, Neut # (Auto) 4.5, Lymph # (Auto) 1.0, [place] # (Auto) 0.5, Eos# (Auto) 0.2, Baso [...] by Estela Varma II, DO> 04/14/22 1202 [facility] Work Phone: [phone]) 741-816410-17-2022 Progress note Author Estela Varma [facility] February 27, 2022 2:56pm Note Date/Time February 27, 2022 2 :51pm [facility] [place] [address] Hem/Onc Follow Up Note - OP Signed Patient: Kirill Echols MR#: [id number] : 1965 Acct:[id number] Age/Sex: 56 / M Type: REG RCR [...] for review. No concerns voiced. HPI: 54-year-old -Ethiopian gentleman history of smoking 40 pack years [...] overwhelming for recurrence. He lives alone in [place]. His children live in [place]. His left him 8 months ago and [...] and urinary tract. Otherwise, there is an Gwbbwv-o-Ghfe on the left. The lungs demonstrate emphysematous [...] He is considering moving back down to [facility] where he is from. 02/27/22 he [...] for coordination of care (as documented) and kcgn-ay-osdt counseling of patient and/or family. [facility] - Medical History Medical History: Medical History [...] Air Distress Screening: RN Distress Screening Start: 07/07/20 12:21 Freq: Status: Complete Protocol: Document 11/18/19 12:56 AA (Rec: 11/18/19 12:58 AA [id number]) Distress Screening Distress Score: 10 Worst distress/worry Emotional Concerns Feeling uncertain about the future Distress Screening Total 10 Distress score of 4 or more discussed Yes with patient? RN Distress Screening Start: 11/24/19 08:55 Freq: Q30D Status: Active Protocol: Document 09/14/21 14:56 KB (Rec: 09/14/21 14:59 KB [id number]) Distress Screening Distress score of 4 or more discussed Yes with patient? Distress screening follow up: Spoke with patient via phone. Patient is doing ok at this time. Recently had a heart cath which was negative. He is happpy that his scans are good. Dr. Perez is working on getting him into [facility]. - Lab Results Diagram of Most Recent [...] signed by Estela Varma II, DO> 02/27/22 1410 [facility] Work Phone: [phone]) 274-781305-03-2022 Evaluation note* Encounter Date Diagnosis Assessment Notes [...] Dr. Andrea to discuss plan of care. [employer] Other 04-25-2022 Progress note Author Estela Varma [facility] September 05, 2021 6:32pm Note Date/Time September 05, 2021 12: 28pm [facility] [address] [address] Hem/Onc Follow Up Note - OP Signed Patient: Kirill Echols MR#: [id number] : 1965 Acct:[id number] Age/Sex: 56 / M Type: REG RCR [...] concerns voiced at this time. HPI: 54-year-old -Ethiopian gentleman history of smoking 40 pack years [...] overwhelming for recurrence. He lives alone in [place]. His children live in [place]. His left him 8 months ago and [...] and urinary tract. Otherwise, there is an Xrxdjs-s-Mwpw on the left. The lungs demonstrate emphysematous [...] He is considering moving back down to [facility] where he is from. - Physical [...] for coordination of care (as documented) and xhmq-ni-kuuh counseling of patient and/or family. [facility] - Medical History Medical History: Medical History [...] Complete Protocol: Document 11/18/19 12:56 AA (Rec: 07/07/20 12:58 AA -[id number]) Distress Screening Distress Score: 10 Worst distress/worry Emotional Concerns Feeling uncertain about the future Distress Screening Total 10 Distress score of 4 or more discussed Yes with patient? RN Distress Screening Start: 11/24/19 08:55 Freq: Q30D Status: Active Protocol: Document 02/02/21 13:22 KB (Rec: 02/02/21 13:23 KB [id number]) Distress Screening Distress score of 4 or [...] % (Auto) 69.0, Lymph % (Auto) 18.2, [place] % (Auto) 7.9, Eos % (Auto) 4.2, Baso % (Auto) 0.7, Neut # (Auto) 3.5, Lymph # (Auto) 0.9 L, [place] # (Auto) 0.4, Eos # (Auto) 0.2, [...] by Estela Varma II, DO> 09/05/21 1832 [facility] Work Phone: 1([phone]) 386-610204-11-2022 Progress note Author Estela Varma [facility] August 22, 2021 3:19pm Note Date/Time August 22, 2021 2:5 3pm [facility] [place] [address] Hem/Onc Follow Up Note - OP Signed Patient: Kirill Echols MR#: [id number] : 1965 Acct:[id number] Age/Sex: 56 / M Type: REG RCR [...] been having shortness of breath HPI: 54-year-old -Ethiopian gentleman history of smoking 40 pack years [...] overwhelming for recurrence. He lives alone in [place]. His children live in [place]. His left him 8 months ago and [...] for coordination of care (as documented) and tqlo-if-ghzh counseling of patient and/or family. [facility] - Medical History Medical History: Medical History [...] 02/02/21 13:22 KB (Rec: 02/02/21 13:23 KB [id number]) Distress Screening Distress score of 4 or [...] % (Auto) 62.5, Lymph % (Auto) 20.1, [place] % (Auto) 11.9, Eos % (Auto) 4.8, Baso % (Auto) 0.7, Neut # (Auto) 3.0, Lymph # (Auto) 1.0, [place] # (Auto) 0.6, Eos # (Auto) 0.2, [...] signed by Estela Varma II, DO> 08/22/21 3664 [facility] Work Phone: 1([phone]) [phone] Progress note Author George Ash [facility] April 05, 2021 12:34pm Note Date/Time April 05, 2021 12:28pm [facility] [place] [address] Hem/Onc Follow Up Note - OP Signed Patient: Kirill Echols MR#: [id number] : 1965 Acct:[id number] Age/Sex: 55 / M Type: REG RCR [...] has seen cardiology and was evaluated in [place] including a stress test. Nothing ever came [...] orthostasis or dizziness or palpitations. [facility] - Medical History Medical History: Medical History [...] 02/02/21 13:22 KB (Rec: 02/02/21 13:23 KB [id number]) Distress Screening Distress score of 4 or [...] % (Auto) 74.7, Lymph % (Auto) 11.7, [place] % (Auto) 10.3, Eos % (Auto) 2.5, Baso % (Auto) 0.8, Neut # (Auto) 6.1, Lymph # (Auto) 1.0, [place] # (Auto) 0.9H, Eos # (Auto) 0.2, [...] had extensive work-up in the past in [place] including stress test. He has seen cardiology. [...] for coordination of care (as documented) and jiul-gg-opls counseling of patient and/or family. Dictated By: George Ash MD DD/ 1227 Signed By: <Electronically signed by MD George Ash> 04/05/21 1234 [facility] Work Phone: [phone]) [phone] Progress note Author George Ash [facility] February 08, 2021 11:42am Note Date/Time February 08, 2021 11:41am [facility] [place] [address] Hem/Onc Follow Up Note - OP Signed Patient: Kirill Echols MR#: [id number] : 1965 Acct:[id number] Age/Sex: 55 / M Type: REG RCR [...] additional complaints except as documented [facility] - Medical History Medical History: Medical History [...] for coordination of care (as documented) and qoeq-yt-axyl counseling of patient and/or family. Dictated By: George Ash MD DD/ 1140 Signed By: <Electronically signed by MD George Ash> 02/08/21 2580 [facility] Work Phone: [phone]) [phone] Progress note Author George Ash [facility] February 01, 2021 11:20am Note Date/Time February 01, 2021 11:19am [facility] [place] [id number] Hem/Onc Follow Up Note - OP Signed Patient: Kirill Echols MR#: [id number] : 1965 Acct:[id number] Age/Sex: 55 / M Type: REG RCR Copies to: MD Rylan Vega MD~ Subjective Date/Time of Service: Date of Service: 02/01/2021 Time of Service: 11:16 Chief Complaint: Patient is here today d/t pain and numbness left side of chest radiates to back. He has been to [facility] and [facility], He went to his family [...] additional complaints except as documented [facility] - Medical History Medical History: Medical History [...] % (Auto) 76.8, Lymph % (Auto) 13.5, [place] % (Auto) 7.5, Eos % (Auto) 1.4, Baso % (Auto) 0.8, Neut # (Auto) 5.1, Lymph # (Auto) 0.9 L, [place] # (Auto) 0.5, Eos # (Auto) 0.1, [...] for coordination of care (as documented) and qamm-qz-ujvb counseling of patient and/or family. Dictated By: George Ash MD DD/ 1116 Signed By: <Electronically signed by MD George Ash> 02/01/21 1120 [facility] Work Phone: [phone]) [phone] Progress note Author George Ash [facility] December 07, 2020 11:02am Note Date/Time December 07, 2020 10:4 0am [facility] [place] [address] Hem/Onc Follow Up Note - OP Signed Patient: Kirill Echols MR#: [id number] : 1965 Acct:[id number] Age/Sex: 55 / M Type: REG RCR [...] with RIGHT supraclavicular region. These may be compliance representative dealer of metastatic lymph nodes. There is focus [...] (Last Reviewed 08/04/20 @ 10:40 by Socorro Wasylik-Waldock, RN) H/O vasectomy H/O wrist surgery Right [...] % (Auto) 71.8, Lymph % (Auto) 12.7, [place] % (Auto) 10.8, Eos % (Auto)3.9, Baso % (Auto) 0.8, Neut # (Auto) 4.8, Lymph # (Auto) 0.9 L, [place] # (Auto) 0.7, Eos # (Auto) 0.3, [...] for coordination of care (as documented) and mbuu-zc-fomh counseling of patient and/or family. Dictated By: George Ash MD DD/ 1039 Signed By: <Electronically signed by MD George Ash> 12/07/20 1102 [facility] Work Phone: [phone]) 131-370404-29-2021 Progress note Author Santhosh Chan [facility] September 09, 2020 11:30am Note Date/Time September 09, 2020 11: 21am [facility] [place] [id number] Hem/Onc Follow Up Note - OP Signed Patient: Kirill Echols MR#: [id number] : 1965 Acct:[id number] Age/Sex: 55 / M Type: REG RCR [...] for coordination of care (as documented) and gvnn-vr-zqdb counseling of patient and/or family. Dictated By: Santhosh Chan MD DD/ 1118 Signed By: <Electronically signed by Santhosh Chan MD> 09/09/20 1130 [facility] Work Phone: 1(363) 841-188804-22-2021 Progress note Author Santhosh Chan [facility] September 02, 2020 11:55am Note Date/Time September 02, 2020 11: 53am [facility] [place] [id number] Hem/Onc Follow Up Note - OP Signed Patient: Kirill Echols MR#: [id number] : 1965 Acct:[id number] Age/Sex: 55 / M Type: REG RCR [...] for coordination of care (as documented) and crbg-hd-clke counseling of patient and/or family. Dictated By: Santhosh Chan MD DD/ 115 Signed By: <Electronically signed by Santhosh Chan MD> 09/02/20 1155 [facility] Work Phone: [phone] Progress note Author Santhosh Chan 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 (4) Anxiety - Time with Patient Time Spent with Patient (Follow Up Visit): 25 minutes, 35 minutes Coordination of Care & Counseling Time: Greater than 50% of time spent with patient was for coordination of care (as documented) and ejig-fb-gcjs counseling of patient and/or family. Dictated By: Santhosh Chan MD DD/ 1316 Signed By: <Electronically signed by Santhosh Chan MD> 07/06/20 1319 [facility] Work Phone: 1([phone]) 805-136402-02-2021 Progress note Author Santhosh Chan [facility] June 15, 2020 4:23pm Note Date/Time June 15, 2020 3 :28pm [facility] [place] [address] Hem/Onc Follow Up Note - OP Signed Patient: Kirill Echols MR#: [id number] : 1965 Acct:[id number] Age/Sex: 55 / M Type: REG RCR [...] % (Auto) 57.8, Lymph % (Auto) 19.4, [place] % (Auto) 16.6, Eos % (Auto) 5.5, Baso % (Auto) 0.7, Neut # (Auto) 2.1, Lymph # (Auto) 0.7 L, [place] # (Auto) 0.6, Eos # (Auto) 0.2, [...] process of transitioning her practice to [facility]. -OARRS reviewed, no concern. Refill prescription of 2 weeks of oxycodone IR 10 mg (down from 15 mg)x56 provided today (taken 6-hour as needed). (3) Anxiety - Time with Patient Time Spent with Patient (Follow Up Visit): 35 minutes Coordination of Care & Counseling Time: Greater than 50% of time spent with patient was for coordination of care (as documented) and ocsw-ie-swbx counseling of patient and/or family. Dictated By: Santhosh Chan MD DD/ 1528 Signed By: <Electronically signed by Santhosh Chan MD> 06/15/20 1623 [facility] Work Phone: [phone] Progress note Author George Ash [facility] April 06, 2020 3:03pm Note Date/Time April 06, 2020 3:00pm [facility] [place] [address] Hem/Onc Follow Up Note - OP Signed Patient: Kirill Echols MR#: [id number] : 1965 Acct:[id number] Age/Sex: 54 / M Type: [facility] RCR Copies to: MD Rylan Vega MD~ [...] PET scan. Patient: Kirill Echols MR#: [id number] : 1965 Acct:[id number] Age/Sex: 54 / M ADM Date: 0 Loc: XT Room: Type: [facility] RCR Attending Dr: George Ash MD Ordering Provider: George Ash MD Date of Service: 03/23/20 CT/CT chest w con: restaging,C34.90 ([id number]) CT/CT abdomen pelvis w con: restaging,C34.90 Copies [...] proximal great vessels. Patient has a left-sided Anicvo-i-Tfln catheter. There is continued ill-defined soft tissue [...] the findings below: Patient: Kirill Echols MR#: [id number] : 1965 Acct:[id number] Age/Sex: 54 / M ADM Date: 0 Loc: Room: Type: [facility] Attending Dr: Varghese Duval MD Ordering Provider: [...] with RIGHT supraclavicular region. These may be compliance representative dealer of metastatic lymph nodes. There is focus [...] Gomes M.D.10/31/2019 2:44 PM Dictation Location: [facility] The patient was seen by Dr. James and evaluated by Dr. Duval. 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 [facility] - Medical History Medical History: Medical History [...] for coordination of care (as documented) and jvvn-hx-juwv counseling of patient and/or family. Dictated By: George Ash MD DD/ 1459 Signed By: <Electronically signed by MD George Ash> 04/06/20 1500 [facility] Work Phone: [phone] Progress note Author George Ash [facility] March 02, 2020 11:39am Note Date/Time March 02, 2020 1 1:38am [facility] [place] [address] Hem/Onc Follow Up Note - OP Signed Patient: Kirill Echols MR#: [id number] : 1965 Acct:[id number] Age/Sex: 54 / M Type: REG RCR [...] the findings below: Patient: Kirill Echols MR#: [id number] : 1965 Acct:[id number] Age/Sex: 54 / M ADM Date: 0 Loc: Room: Type: [facility] Attending Dr: Varghese Duvla MD Ordering Provider: Varghese Duval MD Date of Service: 10/31/19 PET/PET tumor [facility] sb-mt: R91.1 R91.8 R59.1 Copies to: MD [...] with RIGHT supraclavicular region. These may be compliance representative dealer of metastatic lymph nodes. There is focus [...] Franklin Gomes M.D.10/31/2019 2:44 PM Dictation Location: [facility] The patient was seen by Dr. [...] Neut % (Auto)79.5, Lymph % (Auto) 9.8, [place] % (Auto) 8.4, Eos % (Auto) 1.7, Baso % (Auto) 0.6, Neut # (Auto) 6.1, Lymph # (Auto) 0.8 L, [place] # (Auto) 0.6, Eos # (Auto) 0.1, [...] % (Auto) N/A, Lymph % (Auto) N/A, [place] % (Auto) N/A, Eos % (Auto) N/A, Baso % (Auto) N/A, Neut # (Auto) N/A, Lymph # (Auto) N/A, [place] # (Auto) N/A, Eos # (Auto) N/A, [...] for coordination of care (as documented) and kvox-ch-amhz counseling of patient and/or family. Dictated By: George Ash MD DD/ 1135 Signed By: <Electronically signed by MD George Ash> 03/02/20 1139 [facility] Work Phone: [phone] Progress note Author Leoncio Kowalski 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 He has chronic [...] signed by Leoncio Kowalski MD> 02/25/20 1554 [facility] Work Phone: [phone] Progress note Author George Ash [facility] February 10, 2020 1:23pm Note Date/Time February 10, 2020 1:20pm [facility] Center at [address] [address] Hem/Onc Follow Up Note - OP Signed Patient: Kirill Echols MR#: [id number] : 1965 Acct:[id number] Age/Sex: 54 / M Type: REG [facility] Copies to: MD Rylan Vega MD~ [...] the findings below: Patient: Kirill Echols MR#: [id number] : 1965 Acct:[id number] Age/Sex: 54 / M ADM Date: 0 Loc: Room: Type: [facility] Attending Dr: Varghese Duval MD Ordering Provider: [...] with RIGHT supraclavicular region. These may be compliance representative dealer of metastatic lymph nodes. There is focus [...] Franklin Gomes M.D.10/31/2019 2:44 PM Dictation Location: [facility] The patient was seen by Dr. James and evaluated by Dr. Duval. 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 [facility] - Medical History Medical History: Medical History [...] % (Auto) 71.8, Lymph % (Auto) 16.0, [place] % (Auto) 10.5, Eos % (Auto) 0.9, Baso % (Auto) 0.8, Neut # (Auto) 4.8, Lymph # (Auto) 1.1, [place] # (Auto) 0.7, Eos # (Auto) 0.1, Baso # (Auto) 0.1, Nucleated RBC % (auto) 0.1 02/04/20 08:35: WBC 13.5 H, Corrected WBC 13.5 H, RBC 3.87 L, Hgb 12.3 L, Hct 38.1 L, MCV 98.6, MCH 31.7, MCHC 32.2 L, RDW 21.3 H, Plt Count 264, MPV 7.4, Neut % (Auto) 72.3, Lymph % (Auto) 7.8, [place] % (Auto) 18.7, Eos % (Auto) 0.3, Baso % (Auto) 0.9, Neut # (Auto) 9.7 H, Lymph # (Auto) 1.1, [place] # (Auto) 2.5 H,Eos # (Auto) 0.0, [...] for coordination of care (as documented) and kmja-sq-ilqw counseling of patient and/or family. Dictated By: George Ash MD DD/ 1319 Signed By: <Electronically signed by MD George Ash> 02/10/20 0430 [facility] Work Phone: [phone]) [phone] Progress note Author George Ash [facility] January 20, 2020 11:30am Note Date/Time January 20, 2020 11:28am [facility] [place] [address] Hem/Onc Follow Up Note - OP Signed Patient: Kirill Echols MR#: [id number] : 1965 Acct:[id number] Age/Sex: 54 / M Type: REG RCR [...] pro which I did add today. [facility] is following him now for palliative pain control and this is clearly better. He is off of steroids. His synovitis and arthritis have resolved. [facility] - Medical History Medical History: Medical History [...] for coordination of care (as documented) and xqmv-rh-tcmp counseling of patient and/or family. Dictated By: George Ash MD DD/ 1127 Signed By: <Electronically signed by MD George Ash> 01/20/20 1133 [facility] Work Phone: [phone] Progress note Author George Ash [facility] December 30, 2019 10:35am Note Date/Time December 30, 2019 10 :01am [facility] at [address] [address] Hem/Onc Follow Up Note - OP Signed Patient: Kirill Echols MR#: [id number] : 1965 Acct:[id number] Age/Sex: 54 / M Type: REG RCR [...] I have instructed him to get some yyuz-rgm-xprugmp Prilosec for this. He has some type [...] the findings below: Patient: Kirill Echols MR#: [id number] : 1965 Acct:[id number] Age/Sex: 54 / M ADM Date: 0 Loc: Room: Type: [facility] Attending Dr: Varghese Duval MD Ordering Provider: [...] with RIGHT supraclavicular region. These may be compliance representative dealer of metastatic lymph nodes. There is focus [...] Franklin Gomes M.D.10/31/2019 2:44 PM Dictation Location: [facility] The patient was seen by Dr. James and evaluated by Dr. Duval. 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 [facility] - Medical History Medical History: Medical History [...] % (Auto) N/A, Lymph % (Auto) N/A, [place] % (Auto) N/A, Eos % (Auto) N/A, Baso % (Auto) N/A, Neut # (Auto) N/A, Lymph # (Auto) N/A, [place] # (Auto) N/A, Eos # (Auto) N/A, [...] for coordination of care (as documented) and uofm-ke-dwhs counseling of patient and/or family. Dictated By: George Ash MD DD/ 0959 Signed By: <Electronically signed by MD George Ash> 12/30/19 1035 [facility] Work Phone: [phone] Progress note Author George Ash [facility] December 23, 2019 10:25am Note Date/Time December 23, 2019 10 :18am [facility] at [address] [address] Hem/Onc Follow Up Note - OP Signed Patient: Kirill Echols MR#: [id number] : 1965 Acct:[id number] Age/Sex: 54 / M Type: REG RCR [...] the findings below: Patient: Kirill Echols MR#: [id number] : 1965 Acct:[id number] Age/Sex: 54 / M ADM Date: 0 Loc: Room: Type: [facility] Attending Dr: Varghese Duval MD Ordering Provider: [...] with RIGHT supraclavicular region. These may be compliance representative dealer of metastatic lymph nodes. There is focus [...] Gomes M.D.10/31/2019 2:44 PM Dictation Location: [facility] The patient was seen by Dr. James and evaluated by Dr. Duval. 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 [facility] - Medical History Medical History: Medical History [...] for coordination of care (as documented) and yqiv-dm-riud counseling of patient and/or family. Dictated By: George Ash MD DD/ 1015 Signed By: <Electronically signed by MD George Ash> 12/23/19 1025 [facility] Work Phone: [phone] Progress note Author George Ash [facility] December 16, 2019 11:08am Note Date/Time December 16, 2019 11: 01am [facility] [place] [address] Hem/Onc Follow Up Note - OP Signed Patient: Kirill Echols MR#: [id number] : 1965 Acct:[id number] Age/Sex: 54 / M Type: REG RCR [...] the findings below: Patient: Kirill Echols MR#: [id number] : 1965 Acct:[id number] Age/Sex: 54 / M ADM Date: 0 Loc: Room: Type: [facility] Attending Dr: Varghese Duval MD Ordering Provider: [...] with RIGHT supraclavicular region. These may be compliance representative dealer of metastatic lymph nodes. There is focus [...] Franklin Gomes M.D.10/31/2019 2:44 PM Dictation Location: [facility] The patient was seen by Dr. James and evaluated by Dr. Duval. 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 [facility] - Medical History Medical History: Medical History [...] % (Auto) 33.7, Lymph % (Auto) 41.5, [place] % (Auto) 21.4, Eos % (Auto) 2.0, Baso % (Auto) 1.4, Neut # (Auto) 1.6 L, Lymph # (Auto) 1.9, [place] # (Auto) 1.0 H, Eos # (Auto) [...] % (Auto) 21.1, Lymph % (Auto) 51.6, [place] % (Auto) 24.2, Eos % (Auto) 1.9, Baso % (Auto) 1.2, Neut # (Auto) 0.5 L, Lymph # (Auto) 1.3, [place] # (Auto) 0.6, Eos # (Auto) 0.0, [...] for coordination of care (as documented) and lnkk-gu-oxeu counseling of patient and/or family. Dictated By: George Ash MD DD/ 1059 Signed By: <Electronically signed by MD George Ash> 12/16/19 3978 [facility] Work Phone: [phone] Progress note Author George Ash [facility] December 09, 2019 11:13am Note Date/Time December 09, 2019 11:1 1am [facility] [place] [address] Hem/Onc Follow Up Note - OP Signed Patient: Kirill Echols MR#: [id number] : 1965 Acct:[id number] Age/Sex: 54 / M Type: REG R [...] the findings below: Patient: Kirill Echols MR#: [id number] : 1965 Acct:[id number] Age/Sex: 54 / M ADM Date: 0 Loc: Room: Type: [facility] Attending Dr: Varghese Duval MD Ordering Provider: Varghese Duval MD Date of Service: 10/31/19 PET/PET tumor init tx strat sb-mt: R91.1 R91.8 R59.1 Copies to: MD Rylan Vega MD [place],[facility] DO~ PET/CT FUSION IMAGING CLINICAL INFORMATION: Single [...] with RIGHT supraclavicular region. These may be compliance representative dealer of metastatic lymph nodes. There is focus [...] Gomes M.D.10/31/2019 2:44 PM Dictation Location: [facility] The patient was seen by Dr. James [...] 7 Days 12/09/19 09:14: PHA Creatinine Clear [id number], Sodium 130 L, Potassium 4.3, Chloride 99, [...] at thattime as well. 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 Dictated By: George Ash MD DD/ 1109 Signed By: <Electronically signed by MD George Ash> 12/09/19 1113 [facility] Work Phone: [phone] Progress note Author George Ash [facility] November 25, 2019 11:06am Note Date/Time November 25, 2019 11:0 1am [facility] [place] [address] Hem/Onc Follow Up Note - OP Signed Patient: Kirill Echols MR#: [id number] : 1965 Acct:[id number] Age/Sex: 54 / M Type: REG RCR [...] the findings below: Patient: Kirill Echols MR#: [id number] : 1965 Acct:[id number] Age/Sex: 54 / M ADM Date: 0 Loc: PE Room: Type: REG CLI Attending Dr: Varghese Duval MD Ordering Provider: Varghese Duval MD Date of Service: 10/31/19 PET/PET tumor init tx strat sb-mt: R91.1 R91.8 R59.1 Copies to: Varghese J DerMD Rylan payne MD Ward, Jeffrey S DO~ PET/CT FUSION [...] with RIGHT supraclavicular region. These may be compliance representative dealer of metastatic lymph nodes. There is focus [...] Franklin Gomes M.D.10/31/2019 2:44 PM Dictation Location: [facility] The patient was seen by Dr. James and evaluated by Dr. Duval. 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 The patient does have evidence of hyponatremia. It is somewhat mild. He does have clubbing on physical exam. [facility] - Medical History Medical History: Medical History [...] % (Auto) 62.6, Lymph % (Auto) 28.7, [place] % (Auto) 6.5, Eos % (Auto) 1.5, Baso % (Auto) 0.7, Neut # (Auto) 4.6, Lymph # (Auto) 2.1, [place] # (Auto) 0.5, Eos # (Auto) 0.1, Baso # (Auto) 0.0, Nucleated RBC % (auto) 0.2 11/24/19 07:33: PHA Creatinine Clear 75.4000440246, Sodium 128 L, Potassium 3.7,Chloride 93 L, [...] Not detected 11/18/19 14:04: PHA Creatinine Clear 68.5387188498, Sodium 128 L, Potassium 4.8,Chloride 93 L, [...] Neut % (Auto)N/A, Lymph % (Auto) N/A, [place] % (Auto) N/A, Eos % (Auto) N/A, Baso % (Auto) N/A,Neut # (Auto) N/A, Lymph # (Auto) N/A, [place] # (Auto) N/A, Eos # (Auto) N/A, [...] for coordination of care (as documented) and jair-sq-qryv counseling of patient and/or family. Dictated By: George Ash MD DD/ 1100 Signed By: <Electronically signed by MD George Ash> 11/25/19 1106 [facility] Work Phone: [phone] Consult note Author Leoncio Kowalski 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 Dictated By: Leoncio Kowalski MD DD/ 1427 Signed By: <Electronically signed by Leoncio Kowalski MD> 11/20/19 6948 [facility] Work Phone: [phone] Progress note Author George Ash [facility] November 20, 2019 11:12am Note Date/Time November 20, 2019 11:06 am [facility] at [address] [address] Hem/Onc Follow Up Note - OP Signed Patient: Kirill Echols MR#: [id number] : 1965 Acct:[id number] Age/Sex: 54 / M Type: REG RCR [...] see Dr. Duval tomorrow for consideration of Etvogj-x-Clif. Chemotherapy education will be tomorrow November 20. [...] the findings below: Patient: Kirill Echols MR#: [id number] : 1965 Acct:[id number] Age/Sex: 54 / M ADM Date: 0 [...] with RIGHT supraclavicular region. These may be compliance representative dealer of metastatic lymph nodes. There is focus [...] Franklin Gomes M.D.10/31/2019 2:44 PM Dictation Location: [facility] The patient was seen by Dr. James and evaluated by Dr. Duval. 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 The patient does have evidence of hyponatremia. It is somewhat mild. He does have clubbing on physical exam. [facility] - Medical History Medical History: Medical History [...] 7 Days 11/18/19 14:04: PHA Creatinine Clear 68.4405941033, Sodium 128 L, Potassium 4.8,Chloride 93 L, [...] Neut % (Auto)N/A, Lymph % (Auto) N/A, [place] % (Auto) N/A, Eos % (Auto) N/A, Baso % (Auto) N/A,Neut # (Auto) N/A, Lymph # (Auto) N/A, [place] # (Auto) N/A, Eos # (Auto) N/A, [...] cancer The patient will be seen for Nbrpve-q-Frgy tomorrow. Head CT has been ordered and [...] for coordination of care (as documented) and ynvb-at-euzi counseling of patient and/or family. Dictated By: George Ash MD DD/ 1104 Signed By: <Electronically signed by MD George Ash> 11/20/19 1112 [facility] Work Phone: [phone] Consult note Author George Ash [facility] November 18, 2019 2:02pm Note Date/Time November 18, 2019 1:50p m [facility] [place] [address] Hem/Onc Consult Note - OP Signed Patient: Kirill Echols MR#: [id number] : 1965 Acct:[id number] Age/Sex: 54 / M Type: REG RCR [...] the findings below: Patient: Kirill Echols MR#: [id number] : 1965 Acct:[id number] Age/Sex: 54 / M ADM Date: 0 [...] with RIGHT supraclavicular region. These may be compliance representative dealer of metastatic lymph nodes. There is focus [...] Gomes M.D.10/31/2019 2:44 PM Dictation Location: [facility] The patient was seen by Dr. James and evaluated by Dr. Duval. 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 I was called by Dr. Duval today 11/18/2019 and arrange to see the patient immediately. The patient does have evidence of hyponatremia. It is somewhat mild. He does have clubbing on physical exam. [facility] - Medical History Medical History: Medical History [...] for immediate head CT. He will need Sbxqcq-k-Dogd placement and I will refer him to Dr. Duval for this. The patient has fairly limited disease in the chest and mediastinum and may very well be a candidate for combined modality therapy with chemotherapy and radiation. I will refer himto radiation oncology here at [facility]. We will recommend to him immediate [...] for coordination of care (as documented) and rixu-yp-ohpq counseling of patient and/or family. Dictated By: George Ash MD DD/ 1349 Signed By: <Electronically signed by MD George Ash> 11/18/19 1402 [facility] Work Phone: Evaluation noteNo assessment information available [facility] Work Phone: Evaluation note* Diagnosis Onset Date Resolution Status Anemia due to chemotherapy a cute Anxiety acute Cancer-related pain acute Chest pain acute Diarrhea acute Edema acute Joint pain acute Neck pain acute Small cell lung cancer chron ic [facility] Work Phone: Evaluation note* Diagnosis Onset Date Resolution Status Anemia due to chemotherapy a cute Anxiety acute Cancer-related pain acute Chest pain acute Diarrhea acute Edema acute Joint pain acute Neck pain acute Small cell lung cancer chron ic Chest pain acute [facility] Work Phone: Evaluation note* Diagnosis Onset Date Resolution Status Chest pain acute Small cell lung cancer acute Anemia due to chemotherapy a cute Anxiety acute Cancer-related pain acute Chest pain acute Diarrhea acute Edema acute Joint pain acute Neck pain acute Small cell lung cancer chron ic [facility] Work Phone: Evaluation note* Diagnosis Onset Date Resolution Status Chest pain acute Small cell lung cancer acute Anemia due to chemotherapy a cute Anxiety acute Cancer-related pain acute Chest pain acute Diarrhea acute Edema acute Joint pain acute Neck pain acute Small cell lung cancer chron ic Small cell lung cancer acute [facility] Work Phone: Evaluation note* Diagnosis [...] Diarrhea resolved Edema resolved Neck pain resolved [facility] Work Phone: Evaluation note* Diagnosis Onset Date Resolution Status Cancer-related pain acute Chronic hyponatremia acute Joint pain acute Shortness of breath acute Weight loss acute Small cell lung cancer chron ic Anxiety resolved Chest pain resolved Diarrhea resolved Edema resolved Neck pain resolved [facility] Work Phone: Evaluation note* Diagnosis Onset Date Resolution Status Cancer-related pain acute Chronic hyponatremia acute Joint pain acute Shortness of breath acute Weight loss acute Small cell lung cancer chron ic Anxiety resolved Chest pain resolved Diarrhea resolved Edema resolved Neck pain resolved Small cell lung cancer chron [facility] Work Phone: History and physical note Author Tez Irene [facility] April 10, 2022 3:12pm Note Date/Time April 10, 2022 3:12pm [facility] [address] [place], [place] [address]ist H&P Signed Patient: Kirill Echols MR#: [id number] : 1965 Acct:[id number] Age/Sex: 56 / M Adm Date: 2 Loc: Room: [address] [place] [address] Type: ADM INOo Attending Dr: Tez Irene [...] % (Auto) 14.2 % (.) 04/10/22 10:20 [place] % (Auto) 9.9 % (.) 04/10/22 10:20 Eos % (Auto) 1.5 % (.) 04/10/22 10:20 Baso % (Auto) 1.0 % (.) 04/10/22 10:20 Neut # (Auto) 4.5 x10E3/uL (1.8-7.7) 04/10/22 10:20 Lymph # (Auto) 0.9 x10E3/uL (1.00-4.8) L 04/10/22 10:20 [place] # (Auto) 0.6 x10E3/uL (0.0-0.8) 04/10/22 10:20 [...] signed by Tez Irene MD> 04/10/22 1512 [facility] Work Phone: History general Narrative - Reported* Type Description Date Medical History COPD Medical History anxiety Medical History HTN Medical History Lung CA Surgical History Vasectomy Surgical History Right wrist surgery 2005 Surgical History Hernia repair Hospitalization History Related to [facility] Other History general Narrative - Reported* Type Description Date Medical History COPD Medical History anxiety Medical History HTN Medical History Lung CA, small cell remission Surgical History Vasectomy Surgical History Right wrist surgery 2006 Surgical History Hernia repair Hospitalization History Related to [facility] Other Hospital Discharge instructionsAmbulatory Orders* Initiate Home Health Time Frame: 1 Day, Location: Determined By Patient [facility] Work Phone: Hospital Discharge instructionsAmbulatory Orders* Initiate Home Health Time Frame: 1 Day, Location: Determined By Patient * Oncology Histology Time Frame: 10/03/22, Location: Determined By Patient * Oncology Histology Time Frame: 10/17/22, Location: Determined By Patient * Oncology Histology Time Frame: 10/10/22, Location: Determined By Patient [facility] Work Phone: Progress note Author Estela Varma [facility] February 27, 2022 2:56pm Note Date/Time February 27, 2022 2 :51pm [facility] [place] [address] Hem/Onc Follow Up Note - OP Signed Patient: Kirill Echols MR#: [id number] : 1965 Acct:[id number] Age/Sex: 56 / M Type: REG RCR [...] for review. No concerns voiced. HPI: 54-year-old -Ethiopian gentleman history of smoking 40 pack years [...] overwhelming for recurrence. He lives alone in [place]. His children live in [place]. His left him 8 months ago and [...] and urinary tract. Otherwise, there is an Wwsqha-x-Vzxc on the left. The lungs demonstrate emphysematous [...] He is considering moving back down to [facility] where he is from. 02/27/22 he [...] for coordination of care (as documented) and ocof-hg-vhmd counseling of patient and/or family. [facility] - Medical History Medical History: Medical History (Last Reviewed 08/04/20 @ 10:40 by Socorro Frias, ARTHUR) Anemia Anxiety COPD (chronic obstructive pulmonary disease) [...] 09/14/21 14:56 KB (Rec: 09/14/21 14:59 KB [id number]) Distress Screening Distress score of 4 or more discussed Yes with patient? Distress screening follow up: Spoke with patient via phone. Patient is doing ok at this time. Recently had a heart cath which was negative. He is happpy that his scans are good. Dr. Perez is working on getting him into [facility]. - Lab Results Diagram of Most Recent [...] by Estela Varma II, DO> 02/27/22 1456 [facility] Work Phone: Progress note Author Estela Varma [facility] April 14, 2022 12:02pm Note Date/Time April 14, 2022 1 1:50am [facility] [place] [address] Hem/Onc Follow Up Note - OP Signed Patient: Kirill Echols MR#: [id number] : 1965 Acct:[id number] Age/Sex: 56 / M Type: REG RCR [...] concerns voiced at this time. HPI: 54-year-old -Ethiopian gentleman history of smoking 40 pack years [...] overwhelming for recurrence. He lives alone in [place]. His children live in [place]. His left him 8 months ago and [...] and urinary tract. Otherwise, there is an Yeujeb-k-Kecf on the left. The lungs demonstrate emphysematous [...] He is considering moving back down to [facility] where he is from. 02/27/22 he [...] for coordination of care (as documented) and wrjq-np-iguj counseling of patient and/or family. [facility] - Medical History Medical History: Medical History (Last Reviewed 04/10/22 @ 09:54 by Helga Haerr, RN) Anemia Anxiety COPD (chronic obstructive pulmonary [...] 03/01/22 15:44 KB (Rec: 03/01/22 15:45 KB [id number]) Distress Screening Distress score of 4 or [...] % (Auto) 71.4, Lymph % (Auto) 16.2, [place] % (Auto) 8.6, Eos % (Auto) 2.9, Baso % (Auto) 0.9, Neut # (Auto) 4.5, Lymph # (Auto) 1.0, [place] # (Auto) 0.5, Eos# (Auto) 0.2, Baso [...] by Estela Varma II, DO> 04/14/22 1202 [facility] Work Phone: Progress note Author Dixie Olivia [facility] June 22, 2022 2:24pm Note Date/Time June 22, 2022 2 :16pm [facility] [place] [address] Hem/Onc Follow Up Note - OP Signed Patient: Kirill Echols MR#: [id number] : 1965 Acct:[id number] Age/Sex: 57 / M Type: REG RCR Copies to: MD Rylan Vega MD~ Subjective Date/Time of Service: Date of Service: 06/22/2022 Time of Service: 14:09 Chief Complaint: Patient is here for a 2 month follow up with, had chest tube placed 06/16/2022. No concerns voiced at this time. HPI: 54-year-old -Ethiopian gentleman history of smoking 40 pack years [...] overwhelming for recurrence. He lives alone in [place]. His children live in [place]. His left him 8 months ago and [...] and urinary tract. Otherwise, there is an Ujxour-b-Mjee on the left. The lungs demonstrate emphysematous [...] He is considering moving back down to [facility] where he is from. 02/27/22 he [...] orthostasis or dizziness or palpitations. [facility] - Medical History Medical History: Medical History [...] Reviewed 06/16/22 @ 19:33 by Jackie Fraga, MYRON-BC) H/O vasectomy H/O wrist surgery Right side, 2005 Hx of hernia repair - Family History Family History: Family History (Last Reviewed 06/16/22 @ 19:33 by Jackie Fraga, MYRON-BC) Mother Colon cancer Diabetes mellitus, type 2 [...] 03/01/22 15:44 KB (Rec: 03/01/22 15:45 KB [id number]) Distress Screening Distress score of 4 or [...] for coordination of care (as documented) and seng-ly-rlam counseling of patient and/or family. Dictated By: Dixie Olivia APRN DD/ 1409 Signed By: <Electronically signed by ERINN Olivia> 06/22/22 1424 [facility] Work Phone: Progress note Author Estela Varma [facility] September 19, 2022 10:02am Note Date/Time September 19, 2022 9:50am [facility] [place] [address] Hem/Onc Follow Up Note - OP Signed Patient: Kirill Echols MR#: [id number] : 1965 Acct:[id number] Age/Sex: 57 / M Type: REG RCR [...] Weight loss Follow Up Instructions: f/u wth RUBBER CURER in 6 weeks, cbc, cmp b12, folate, [...] concerns voiced at this time. HPI: 54-year-old -Ethiopian gentleman history of smoking 40 pack years [...] overwhelming for recurrence. He lives alone in [place]. His children live in [place]. His left him 8 months ago and [...] and urinary tract. Otherwise, there is an Alvjii-l-Szil on the left. The lungs demonstrate emphysematous [...] add on appointment after ER visit at [facility] on August 29, 2022 He went to [...] for coordination of care (as documented) and cntd-jx-dhhh counseling of patient and/or family. [facility] - Medical History Medical History: Medical History [...] (Last Reviewed 06/16/22 @ 19:33 by MYRON aCno-BC) Mother Colon cancer Diabetes mellitus, type 2 [...] 03/01/22 15:44 KB (Rec: 03/01/22 15:45 KB [id number]) Distress Screening Distress score of 4 or [...] by Estela Varma II, DO> 09/19/22 1002 [facility] Work Phone: Progress note Author Estela Varma [facility] December 25, 2022 11:43am Note Date/Time December 25, 2022 11 :39am [facility] at [address] [address] Hem/Onc Follow Up Note - OP Signed Patient: Kirill Echols MR#: [id number] : 1965 Acct:[id number] Age/Sex: 57 / M Type: REG RCR [...] today. No new concerns voiced. HPI: 54-year-old -Ethiopian gentleman history of smoking 40 pack years [...] overwhelming for recurrence. He lives alone in [place]. His children live in [place]. His left him 8 months ago and [...] and urinary tract. Otherwise, there is an Onwjvs-u-Qdga on the left. The lungs demonstrate emphysematous [...] add on appointment after ER visit at [facility] on August 29, 2022 He went to [...] for coordination of care (as documented) and azns-qm-ejvi counseling of patient and/or family. [facility] - Medical History Medical History: Medical History [...] 03/01/22 15:44 KB (Rec: 03/01/22 15:45 KB [id number]) Distress Screening Distress score of 4 or [...] % (Auto) 70.2, Lymph % (Auto) 15.7, [place] % (Auto) 7.8, Eos % (Auto) 5.0, Baso % (Auto) 1.3, Nucleat RBC Rel Count 0.0, Neut # (Auto) 4.2, Lymph # (Auto) 0.9 L, [place] # (Auto) 0.5, Eos # (Auto) 0.3, [...] by Estela Varma II, DO> 12/25/22 [address] [facility] Work Phone: Summary Purpose Family [...] ized section and content) DATE CREATED AUTHOR 05/14/2018 [facility] DATE CREATED AUTHOR AUTHOR'S ORGANIZ ATION 03/05/2020 [facility] DATE CREATED AUTHOR AUTHOR'S ORGANIZ ATION 08/07/2020 [facility] DATE CREATED AUTHOR AUTHOR'S ORGANIZ ATION 08/20/2020 [facility] ([place] [place] DATE CREATED AUTHOR AUTHOR'S ORGANIZ ATION 12/02/2021 [facility] DATE CREATED AUTHOR AUTHOR'S ORGANIZ ATION 03/04/2022 [facility] DATE CREATED AUTHOR AUTHOR'S ORGANIZ ATION 10/23/2022 [facility] DATE CREATED AUTHOR AUTHOR'S ORGANIZ ATION 09/14/2023 [facility] DATE CREATED AUTHOR AUTHOR'S ORGANIZ ATION 01/10/2024 [facility] DATE CREATED AUTHOR AUTHOR'S ORGANIZ ATION 01/12/2024 Montiel Srikanth [facility] DATE CREATED AUTHOR AUTHOR'S ORGANIZ ATION 01/16/2024 [facility] EPIC REASON FOR VISIT [...] vomiting, Being set up for time @ [facility] by Dr. 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 Relationship Specialty Start Date End Date Rylan Andrea MD [address] [place] [address] PCP - General Family Medicine 10/16/22 Marilu Bonner NP [address] [place] [address] Nurse Practitioner Family Medicine 04/03/23 Nilsa Isidro NP [address] [place] [address] Nurse Practitioner Pulmonary Disease 04/03/23 Morenita Gomes, RN Registered Nurse Family Medicine 06/18/23 Sanjuana Van LSW Consumer Insights Specialist Family Medicine 06/18/23 Tub Wash Operator Relationship Specialty Start Date End Date Rylan Andrea MD [address] [place] [address] PCP - General Family Medicine 10/16/22 Marilu Bonner NP [address] [place] [address] Nurse Practitioner Family Medicine 04/03/23 Nilsa Isidro NP [address] [place] [id number] Nurse Practitioner Pulmonary Disease 04/03/23 Morenita Gomes, ARTHUR Registered Nurse Family Medicine 06/18/23 Sanjuana Van LSW Consumer Insights Specialist Family Medicine 06/18/23 FOR RECORDS PERTAINING [...] BE BASED ON THE PRIMARY CLINICAL RECORDS. [facility] [employer] [facility]. provides no warranty or guarantee of the accuracy or completeness of information in this document.
[2024-01-17 06:40] VITALS: BP 124/82; PULSE 97; TEMP 36.1; O2SAT 99
[2024-01-17] MEDS: CYCLOPENTOLATE HCL 1% OP SOL 40 DROP/2 ML BOTTLE OP ×4 (06:47→07:15)
[2024-01-17] MEDS: PHENYLEPHRINE HCL 2.5% OP SOL 40 DROP/2 ML BOTTLE OP ×4 (06:47→07:16)
[2024-01-17] MEDS: BESIFLOXACIN HCL 100 DROP DROPS.SUSP OP ×4 (06:48→07:16)
[2024-01-17] MEDS: TROPICAMIDE 1% OP SOL 300 DROP/15 ML BOTTLE OP ×4 (06:48→07:16)
[2024-01-17] MEDS: DIAZEPAM 5 MG TABLET 10 MG PO (06:59)
[2024-01-17] MEDS: LIDOCAINE 2% JELLY 10 ML TOPICAL (08:04)
[2024-01-17] MEDS: PROPARACAINE HCL 0.5% 300 DROP/15 ML BOTTLE OP (08:05)
[2024-01-17] MEDS: BETADINE POVIDONE-IODINE 5% OP SOL 30 ML BOTTLE OP (08:05)
[2024-01-17 08:12] VITALS: BP 109/83; PULSE 90; O2SAT 98
[2024-01-17] MEDS: HYALURONATE SODIUM 16 MG/ML SYRINGE OP (08:16)
[2024-01-17] MEDS: LIDOCAINE HCL 1% PF 20 MG/2 ML VIAL INJ (08:16)
[2024-01-17] MEDS: PHENYLEPHRINE/KETOROLAC 1-0.3% ML VIAL 4 ML IRR (08:16)
[2024-01-17] MEDS: APRACLONIDINE HCL 0.5% SOL 100 DROP/5 ML BOTTLE OP (08:17)
[2024-01-17] MEDS: CEFUROXIME SODIUM 750 MG, 0.9 % SODIUM CHLORIDE 16.3 ML OP (08:17)
[2024-01-17] MEDS: TETRACAINE HCL 0.5% OP SOL 80 DROP/4 ML BOTTLE OP (08:17)
[2024-01-17] MEDS: PREDNISOLONE ACETATE OP 1% SUSP 100 DROPS/5 ML 1 DROP OP (08:18)
[2024-01-17 08:19] VITALS: BP 132/84; PULSE 88; O2SAT 99
== END 2024-01-17 08:41 | disposition home or self-care (01) ==
LOC: SURGOUT 06:29
PROVIDERS: PCP Family Medicine; Visit Provider Ophthalmology
PROC: (CPT 66984; principal; 2024-01-17 08:20)
DX: H25.11 Age-related nuclear cataract, right eye (principal)
CPT/HCPCS: 66984; J0697; V2630

== ENCOUNTER 2024-01-23 22:35 | Emergency (ER) | payer OTHER, MEDICARE, MEDICAID, SELFPAY ==
[2024-01-23 22:40] VITALS: BP 128/99; PULSE 123; TEMP 36.5; O2SAT 99
--- OUTSIDE RECORDS SUMMARY | 2024-01-23 22:50 | XMS_ITS | CCD ---
Author Organization [facility] Care Team Providers Care Burglar Alarm Installer Name Role Phone CUBA ESQUIVEL Unavailable Unavailable [...] Unavailable MD Rylan Andrea Primary Care Provider [phone] MD Varghese Duval Referring Provider DO Estela Varma II Attending Provider MD Ryaln Andrea Primary Care Provider [phone] MD Varghese Duval Referring Provider DO Estela Varma II Attending Provider DO Kali Longo Emergency Provider MD Tez Irene Admit Provider MD Tez Irene Attending Provider [phone] MD Rylan Andrea Primary Care Provider DO Estela Varma II Other Provider MD Varghese Duval Referring Provider DO Estela Varma II Attending Provider MD Varghese Duval Referring Provider [phone] Adamowicz II, DO Estela J Attending Provider MD Rachid Chase Attending Provider MD Varghese Duval Attending Provider Adamowicz II, DO Estela J Attending Provider MD Annette Guardado Other Provider MD Varghese Duval Referring Provider Rachid Chase Unavailable MD Rylan Andrea Primary Care Provider [phone] MD Varghese Duval Referring Provider Adamowicz II, DO Estela J Attending Provider YULY Isidro Attending Provider [phone] EMRE, DR CLAY Primary Care Unavailable ADAMOWICZ, ESTELA J Admitting Unavailable ADAMOWICZ, ESTELA J Attending Unavailable ADAMOWICZ, ESTELA J Consulting Unavailable ANDREA, DR CLAY Primary Care Unavailable ADAMOWICZ, ESTELA J Admitting Unavailable ADAMOWICZ, ESTELA J Attending Unavailable ADAMOWICZ, ESTELA J Consulting Unavailable ANDREA, DR CLAY Primary Care Unavailable ADAMOWICZ, ESTELA J Admitting Unavailable ADAMOWICZ, ESTELA J Attending Unavailable ADAMOWICZ, ESTELA J Consulting Unavailable SEDGWICK, DR MRACE Fernandez Consulting Unavailable NADERER, DR LIZBET Flaherty [...] Care Provider MD Varghese Duval Referring Provider [phone] Adamowicz II, DO Estela Rosales Attending Provider [phone] KIKO Molina Emergency Provider [phone] MD Varghese Duval Referring Provider [phone] Adamowicz II, DO Estela Rosales Attending Provider MD Varghese Duval Referring Provider Adamowicz II, DO Estela Rosales Attending Provider Rylan Andrea MD Primary Care Provider [phone] Rafa UNIVERSITY ADMINISTRATIVE ASSISTANT, Marilu Unavailable Sanna UNIVERSITY ADMINISTRATIVE ASSISTANT, Nilsa R Unavailable [phone] Eliseo GIBSON, Morenita Unavailable Carlota JIANG, Sanjuana Unavailable MD Rylan Andrea Primary Care Provider MD Varghese Duval Referring Provider Adamowicz II, DO Estela Rosales Attending Provider RYLAN ANDREA Referring Unavailable ANDREA, RYLAN A [...] Attending Unavailable WARCHOL, MARILU Attending Unavailable ANDREA, RYLAN A Attending Unavailable KAROL JAMES Attending Unavailable WARCHOL, MARILU Referring Unavailable MARILU BONNER Attending Unavailable MARILU BONNER Attending Unavailable Manpreet SLAEEM Attending Unavailable Allergies Allergy Classification Reported Allergen(s) Allergy Type Date of Onset Reaction(s) Facility (4 sources) chlordiazePOXID E; Translations: [Librium] Drug Allergy Unknown [facility] Repository (19 sources) Lisinopril; Translations: [lisinopril] Drug Allergy 2 Unknown, Swelling of Lip/Tongue/Thro at [facility] (20 sources) Sertraline; Translations: [sertraline] Drug Allergy 2 Swelling of Lip/Tongue/Thro at [facility] (7 sources) chlordiazePOXID E; Translations: [chlordiazepoxi de] Drug Allergy 3 Edema [facility] (1 source) Amino Acids Drug Allergy [facility] Rep[facility] (1 source) Sertraline Drug Allergy 2 [facility] (4 sources) Lisinopril Allergy to substance 3 [facility] (1 source) Lisinopril Drug Allergy 4 [facility] Repository Medications Current Medications Medication Drug Class(es) [...] Folic Acid Active 1 MG PO Daily 90 December 24, 2022 11:00pm melatonin 3 mg [...] tab #100 RF zero given on 12/29 [id number] 200 actuat albuterol 0.09 mg/actuat metered dose [...] TIMES DAILY take 2 puff(s) by mo uth four [...] (Bisacodyl)) 10 mg Suppository Discontinued 10 MG PA Q24H August 16, 2020 11:00pm September 01, [...] 9:51am docusate sodium 50 mg / sennosides, jail 8.6 mg oral tablet (20 sources) Start: [...] 03, 2019 11:00pm December 01, 2019 12:23pm Bhelzzazwyy-Fzrfhbaaz-Ynhrov er (15 sources) Anticholinergic, Corticosteroid, beta2-Adrenergic Agonist Start: 07-26-2020 End: 08-17-2020 Vicwkbbpcvc-Tfgnqmigu-Tatizf er (Trelegy Ellipta) 100-62.5-25 mcg Blister With Device Discontinued 1 INH INHALATION Daily July 25, 2020 11:00pm August 17, 2020 8:43am Start: 07-26-2020 End: 08-17-2020 Nmkoxpjtkid-Parczcbba-Ozwjpj er (Trelegy Ellipta) 100-62.5-25 mcg Blister With [...] at the same time. 0 Active nystatin 518394 unt/ml oral suspension (15 sources) Polyene Antifungal [...] per Palliative or PCP polyethylene glycol 3350 63221 mg powder for oral solution (15 sources) [...] take 2 tablets by mouth at bedti ar Zolpidem Tartrate 5 MG (Schedule IV Drug) [...] 09-25-2022 Chronic Other aftercare (1 source) Other longterm (current) drug therapy; Translations: [OTH [facility] CURRENT DRUG THERAPY] Onset: 3 Episodic Other aftercare (1 source) [facility] (current) use of aspirin; Translations: [[facility] CURRENT USE OF ASPIRIN] Onset: 3 Episodic [...] Onset: 3 Episodic Comment on above: quit 2021 1ppd; Spondylosis; intervertebral disc disorders; other back [...] ALT [Catalytic activity/Vol] 14 U/L Normal 7-52 [facility] Comment on above: Performed By: #### C BC, MARILU, LIPASE, FE and TIBC, CEA, T4F, TSH3, YUSUF, [id number], CMP #### [address] #### METH #### [facility] , Albumin [Mass/volume] in Ser um or Plasma by Bromocresol green (BCG) dye binding methoOrdered By: Estela Varma on 06-25-2023 Albumin BCG dye [Mass/Vol] 3.9 g/dL 3.5-5.7 [facility] Alkaline phosphatase [Enzyma tic activity/volume] in Serum or PlasmaOrdered By: Estela Varma on 06-25-2023 ALP [Catalytic activity/Vol] 126 U/L High 34-104 [facility] Comment on above: Performed By: #### C BC, MARILU, LIPASE, FE and TIBC, CEA, T4F, TSH3, YUSUF, [id number], CMP #### [facility] [address] [place] [address] [place] #### METH #### [facility] , Amylase [Enzymatic activity/ volume] in Serum or PlasmaOrdered By: Estela Varma on 06-25-2023 Amylase [Catalytic activity/Vol] 52 U/L Normal 29-103 [facility] Comment on above: Performed By: #### C BC, MARILU, LIPASE, FE and TIBC, CEA, T4F, TSH3, YUSUF, [id number], CMP #### [address] #### METH #### [facility] , Aspartate aminotransferase [ Enzymatic activity/volume] in Serum or PlasmaOrdered By: Estela Varma on 06-25-2023 AST [Catalytic activity/Vol] 30 U/L Normal 13-39 [facility] Comment on above: Performed By: #### C BC, MARILU, LIPASE, FE and TIBC, CEA, T4F, TSH3, YUSUF, [id number], CMP #### [address] #### METH #### [facility] , Automated basophil %Ordered By: Estela Varma on 06-25-2023 Basophils/100 WBC (Bld) 1.3 % Normal . [facility] Comment on above: Performed By: #### C BC, MARILU, LIPASE, FE and TIBC, CEA, T4F, TSH3, YUSUF, [id number], CMP #### [address] #### METH #### [facility] , Automated basophil countOrde red By: Estela Varma on 06-25-2023 Basophils (Bld) [#/Vol] 0.1 10*3/uL Normal 0.0-0.2 [facility] Comment on above: Result Comment: PERF ORMED BY: [place] [address] PATHOLOGIST BAD CLOTH CHECKER CATY DELCID M.D. Performed By: #### C BC, MARILU, LIPASE, FE and TIBC, CEA, T4F, TSH3, YUSFU, [id number], CMP #### [place] [address] [place] #### METH #### [facility] , Automated blood monocyte cou ntOrdered By: Estela Varma on 06-25-2023 Monocytes (Bld) [#/Vol] 0.7 10*3/uL Normal 0.0-0.8 [facility] Comment on above: Performed By: #### C BC, MARILU, LIPASE, FE and TIBC, CEA, T4F, TSH3, YUSUF, [id number], CMP #### [address] #### METH #### [facility] , Automated eosinophil %Ordere d By: Estela Varma on 06-25-2023 Eosinophils/100 WBC (Bld) 2.5 % Normal . [facility] Comment on above: Performed By: #### C BC, MARILU, LIPASE, FE and TIBC, CEA, T4F, TSH3, YUSUF, [id number], CMP #### [address] #### METH #### [facility] , Automated eosinophil countOr dered By: Estela Varma on 06-25-2023 Eosinophils (Bld) [#/Vol] 0.2 10*3/uL Normal 0.0-0.45 [facility] Comment on above: Performed By: #### C BC, MARILU, LIPASE, FE and TIBC, CEA, T4F, TSH3, YUSUF, [id number], CMP #### [place] [address] [place] #### METH #### [facility] , Automated monocyte %Ordered By: Estela Varma on 06-25-2023 Monocytes/100 WBC (Bld) 8.7 % Normal . [facility] Comment on above: Performed By: #### C BC, MARILU, LIPASE, FE and TIBC, CEA, T4F, TSH3, YUSUF, [id number], CMP #### [place] [address] [place] #### METH #### [facility] , Automated neutrophil %Ordere d By: Estela Varma on 06-25-2023 Neutrophils/100 WBC (Bld) 78.2 % Normal . [facility] Comment on above: Performed By: #### C BC, MARILU, LIPASE, FE and TIBC, CEA, T4F, TSH3, YUSUF, [id number], CMP #### [facility] [address] [place] [address] [place] #### METH #### [facility] , Bilirubin.total [Mass/volume ] in Serum or PlasmaOrdered By: Estela Varma on 06-25-2023 Bilirubin [Mass/Vol] 1.0 mg/dL Normal 0.3-1.0 [facility] Comment on above: Performed By: #### C BC, MARILU, LIPASE, FE and TIBC, CEA, T4F, TSH3, YUSUF, [id number], CMP #### [facility] [address] [place] [address] [place] #### METH #### [facility] , CARCINOEMBRYONIC ANTIGENon 0 06-25-2023 Interpretation and review of laboratory results Abnormal Counts include 234 beds at the [facility] CBC W Auto Differential pane l (Bld)on 06-25-2023 Basophils (Bld) [#/Vol] 0.1 10*3/uL 0.0 - 0.2 10*3/uL [facility] Basophils/100 WBC Manual cnt (Syn fld) 1.3 % . [facility] Eosinophils (Bld) [#/Vol] 0.2 10*3/uL 0.0 - 0.45 10*3/uL [facility] Eosinophils/100 WBC Manual cnt (Syn fld) 2.5 % . [facility] Erythrocyte distribution width (RBC) [Ratio] 15.5 % High 12.0 - 14.8 % [facility] Hematocrit (Bld) [Volume fraction] 40.7 % 38.8 - 50.0 % [facility] Hemoglobin (Bld) [Mass/Vol] 13.7 g/dL 13.0 - 17.0 g/dL [facility] Interpretation and review of laboratory results Abnormal [facility] Lymphocytes (Bld) [#/Vol] 0.8 10*3/uL Low 1.00 - 4.8 10*3/uL [facility] Lymphocytes/100 WBC Manual cnt (Syn fld) 9.3 % . [facility] MCH (RBC) [Entitic mass] 32.9 pg 27.5 - 35.2 pg [facility] MCHC (RBC) [Mass/Vol] 33.7 g/dL 32.5 - 35.6 g/dL [facility] MCV (RBC) [Entitic vol] 97.6 fL 83.5 - 101 fL [facility] Monocytes (Bld) [#/Vol] 0.7 10*3/uL 0.0 - 0.8 10*3/uL [facility] Monocytes+Macrophages /100 WBC Manual cnt (Syn fld) 8.7 % . [facility] Neutrophils (Bld) [#/Vol] 6.5 10*3/uL 1.8 - 7.7 10*3/uL [facility] Neutrophils/100 WBC Manual cnt (Syn fld) 78.2 % . [facility] NRBC 0.2 /100{WBC} 0 - 0.5 /100{WBC} [facility] Platelet mean volume (Bld) [Entitic vol] 7.4 fL 6.6 - 10.1 fL [facility] Platelets (Bld) [#/Vol] 196 10*3/uL 150 - 450 10*3/uL [facility] RBC LM.HPF (Urine sed) [#/Area] 4.17 /[HPF] 3.90 - 5.60 [facility] WBC (Bld) [#/Vol] 8.4 10*3/uL 4.1 - 10.5 10*3/uL [facility] WBC LM.HPF (Urine sed) [#/Area] 8.4 10*3/uL 4.1 - 10.5 10*3/uL Counts include 234 beds at the [facility] Calcium [Mass/volume] in Ser um or PlasmaOrdered By: Estela Varma on 06-25-2023 Calcium [Mass/Vol] 8.7 mg/dL Normal 8.6-10.3 [facility] Comment on above: Performed By: #### C BC, MARILU, LIPASE, FE and TIBC, CEA, T4F, TSH3, YUSUF, [id number], CMP #### [facility] [address] [place] [address] #### METH #### [facility] , Capillary blood glucose ledy urement by glucometer (mass/volume)Ordered By: Estela Varma on 06-25-2023 Glucose [Mass/Vol] 97 mg/dL Normal [facility] Comment on above: Random Glucose Refer ence Range is dependent on time and content of last meal. Glucose of more than 200 mg/dL in a nonstressed, ambulatory subject supports the diagnosis of Diabetes Mellitus. Result Comment: [place] om Glucose Reference Range is dependent on time and content of last meal. Glucose of more than 200 mg/dL in a nonstressed, ambulatory subject supports the diagnosis of Diabetes Mellitus. PERFORMED BY: [place] [address] PATHOLOGIST BAD CLOTH CHECKER CATY DELCID M.D. Performed By: #### C BC, MARILU, LIPASE, FE and TIBC, CEA, T4F, TSH3, YUSUF, [id number], CMP #### [address] #### METH #### [facility] , Carbon dioxide, total [Moles /volume] in Serum or PlasmaOrdered By: Estela Varma on 06-25-2023 CO2 [Moles/Vol] 23.2 mmol/L Normal 21.0-31.0 [facility] Comment on above: Performed By: #### C BC, MARILU, LIPASE, FE and TIBC, CEA, T4F, TSH3, YUSUF, [id number], CMP #### [place] [address] [place] #### METH #### [facility] , Chloride [Moles/volume] in S coral or PlasmaOrdered By: Estela Varma on 06-25-2023 Chloride [Moles/Vol] 96 mmol/L Low 98-107 [facility] Comment on above: Performed By: #### C BC, MARILU, LIPASE, FE and TIBC, CEA, T4F, TSH3, YUSUF, [id number], CMP #### [place] [address] [place] #### METH #### [facility] , Complete Blood Count Auto Di ffon 06-25-2023 Mean Corpuscular HGB Conc 33.7 g/dL Normal 32.5-35.6 [facility] Comment on above: Performed By: #### C BC, MARILU, LIPASE, FE and TIBC, CEA, T4F, TSH3, YUSUF, [id number], CMP #### [facility] [address] [place] [address] [place] #### METH #### [facility] , NRBC% 0.2 /100{WBC} Normal 0-0.5 [facility] Comment on above: Performed By: #### C BC, MARILU, LIPASE, FE and TIBC, CEA, T4F, TSH3, YUSUF, [id number], CMP #### [place] [address] [place] #### METH #### [facility] , Comprehensive Metabolic Pane nicolas 06-25-2023 Albumin [Mass/Vol] 3.9 g/dL Normal 3.5-5.7 [facility] Comment on above: Performed By: #### C BC, MARILU, LIPASE, FE and TIBC, CEA, T4F, TSH3, YUSUF, [id number], CMP #### [place] [address] [place] #### METH #### [facility] , Creatinine Clr Calc Pharmacy 108.93 Normal [facility] Comment on above: Performed By: #### C BC, MARILU, LIPASE, FE and TIBC, CEA, T4F, TSH3, YUSUF, [id number], CMP #### [facility] [address] [place] [address] [place] #### METH #### [facility] , GFR/1.73 sq M.predicted MDRD (S/P/Bld) [Vol rate/Area] mL/min/{1.73_m2} Normal [facility] Comment on above: Performed By: #### C BC, MARILU, LIPASE, FE and TIBC, CEA, T4F, TSH3, YUSUF, [id number], CMP #### [facility] [address] [place] [address] #### METH #### [facility] , Creatinine [Mass/volume] in Serum or PlasmaOrdered By: Estela Varma on 06-25-2023 Creatinine [Mass/Vol] 0.70 mg/dL Normal 0.70-1.30 [facility] Comment on above: Performed By: #### C BC, MARILU, LIPASE, FE and TIBC, CEA, T4F, TSH3, YUSUF, [id number], CMP #### [address] #### METH #### [facility] , Erythrocyte distribution wid th [Ratio] by Automated countOrdered By: Estela Varma on 06-25-2023 Erythrocyte distribution width (RBC) [Ratio] 15.5 % High 12.0-14.8 [facility] Comment on above: Performed By: #### C BC, MARILU, LIPASE, FE and TIBC, CEA, T4F, TSH3, YUSUF, [id number], CMP #### [address] #### METH #### [facility] , Erythrocytes [#/volume] in B lood by Automated countOrdered By: Estela Varma on 06-25-2023 RBC (Bld) [#/Vol] 4.17 10*6/uL Normal 3.90-5.60 [facility] Comment on above: Performed By: #### C BC, MARILU, LIPASE, FE and TIBC, CEA, T4F, TSH3, YUSUF, [id number], CMP #### [address] #### METH #### [facility] , Ferritin [Mass/volume] in Se rum or PlasmaOrdered By: Estela Varma on 06-25-2023 Ferritin [Mass/Vol] 207.7 ng/mL Normal 23.9-336.2 [facility] Comment on above: Performed By: #### C BC, MARILU, LIPASE, FE and TIBC, CEA, T4F, TSH3, YUSUF, [id number], CMP #### [facility] [address] #### METH #### [facility] , Folate [Mass/volume] in Seru m or PlasmaOrdered By: Estela Varma on 06-25-2023 Folate [Mass/Vol] 9.6 ng/mL >5.9 [facility] Comment on above: Folate reference ran ge: >5.9 ng/mlThe WHO technical consultation on folate and vitamin [id number] has determined that folate concentrations lessthan 4 ng/ml are considered deficient. GLUCOSE POCT GLUCOMETERSon 0 06-25-2023 Glucose [Mass/Vol] 97 mg/dL [facility] Comment on above: Random Glucose Refer ence Range is dependent on time and content of last meal. Glucose of more than 200 mg/dL in a nonstressed, ambulatory subject supports the diagnosis of Diabetes Mellitus. [facility] Glucose [Mass/volume] in Ser um or PlasmaOrdered By: Estela Varma on 06-25-2023 Glucose [Mass/Vol] 89 mg/dL Normal 70-100 [facility] Comment on above: ADA recommended refe rence rangeRandom Glucose Reference Range is dependent on time and content of last meal. Glucose of more than 200 mg/dL in a nonstressed, ambulatory subject supports the diagnosis of Diabetes Mellitus. Result Comment: [facility] Glucose Reference Range is dependent on time and content of last meal. Glucose of more than 200 mg/dL in a nonstressed, ambulatory subject supports the diagnosis of Diabetes Mellitus. ADA recommended reference range Performed By: #### C BC, MARILU, LIPASE, FE and TIBC, CEA, T4F, TSH3, YUSUF, [id number], CMP #### [facility] [address] [place] [address] [place] #### METH #### [facility] , Hematocrit [Volume Fraction] of Blood by Automated countOrdered By: Estela Varma on 06-25-2023 Hematocrit (Bld) [Volume fraction] 40.7 % Normal 38.8-50.0 [facility] Comment on above: Performed By: #### C BC, MARILU, LIPASE, FE and TIBC, CEA, T4F, TSH3, YUSUF, [id number], CMP #### [place] [address] [place] #### METH #### [facility] , Hemoglobin [Mass/volume] in BloodOrdered By: Estela Varma on 06-25-2023 Hemoglobin (Bld) [Mass/Vol] 13.7 g/dL Normal 13.0-17.0 [facility] Comment on above: Performed By: #### C BC, MARILU, LIPASE, FE and TIBC, CEA, T4F, TSH3, YUSUF, [id number], CMP #### [place] [address] [place] #### METH #### [facility] , Iron [Mass/volume] in Serum or PlasmaOrdered By: Estela Varma on 06-25-2023 Iron [Mass/Vol] 159 ug/dL Normal 50-212 [facility] Comment on above: Performed By: #### C BC, MARILU, LIPASE, FE and TIBC, CEA, T4F, TSH3, YUSUF, [id number], CMP #### [facility] [address] [place] [address] [place] #### METH #### [facility] , Iron and TIBC Profileon 06-14 % Iron Saturation 65.7 % High 20-50 [facility] Comment on above: Performed By: #### C BC, MARILU, LIPASE, FE and TIBC, CEA, T4F, TSH3, YUSUF, [id number], CMP #### [facility] [address] [place] [address] [place] #### METH #### [facility] , Total Iron Binding Capacity 242 ug/dL Low 255-450 [facility] Comment on above: Performed By: #### C BC, MARILU, LIPASE, FE and TIBC, CEA, T4F, TSH3, YUSUF, [id number], CMP #### [facility] [address] [place] [address] #### METH #### [facility] , Iron binding capacity [Mass/ volume] in Serum or PlasmaOrdered By: Estela Varma on 06-25-2023 Iron binding capacity [Mass/Vol] 242 ug/dL 255-450 [facility] Iron saturation [Mass Fracti on] in Serum or PlasmaOrdered By: Estela Varma on 06-25-2023 Iron saturation [Mass fraction] 65.7 % 20-50 [facility] Leukocytes [#/volume] correc chris for nucleated erythrocytes in Blood by Automated counOrdered By: Estela Varma on 06-25-2023 WBC corrected for nucl RBC Auto (Bld) [#/Vol] 8.4 10*3/uL 4.1-10.5 [facility] Leukocytes [#/volume] in Blo od by Automated countOrdered By: Estela Varma on 06-25-2023 WBC (Bld) [#/Vol] 8.4 10*3/uL Normal 4.1-10.5 [facility] Comment on above: Performed By: #### C BC, MARILU, LIPASE, FE and TIBC, CEA, T4F, TSH3, YUSUF, [id number], CMP #### [facility] [address] [place] [address] [place] #### METH #### [facility] , Lipase [Enzymatic activity/v olume] in Serum or PlasmaOrdered By: Estela Varma on 06-25-2023 Lipase [Catalytic activity/Vol] 36.0 U/L Normal 11.0-82.0 [facility] Comment on above: Performed By: #### C BC, MARILU, LIPASE, FE and TIBC, CEA, T4F, TSH3, YUSUF, [id number], CMP #### [facility] [address] [place] [address] #### METH #### [facility] , Lymphocytes [#/volume] in Bl ood by Automated countOrdered By: Estela Varma on 06-25-2023 Lymphocytes (Bld) [#/Vol] 0.8 10*3/uL Low 1.00-4.8 [facility] Comment on above: Performed By: #### C BC, MARILU, LIPASE, FE and TIBC, CEA, T4F, TSH3, YUSUF, [id number], CMP #### [address] #### METH #### [facility] , Lymphocytes/100 leukocytes i n Blood by Automated countOrdered By: Estela Varma on 06-25-2023 Lymphocytes/100 WBC (Bld) 9.3 % Normal . [facility] Comment on above: Performed By: #### C BC, MARILU, LIPASE, FE and TIBC, CEA, T4F, TSH3, YUSUF, [id number], CMP #### [address] #### METH #### [facility] , MCH [Entitic mass] by Automa chris countOrdered By: Estela Varma on 06-25-2023 MCH (RBC) [Entitic mass] 32.9 pg Normal 27.5-35.2 [facility] Comment on above: Performed By: #### C BC, MARILU, LIPASE, FE and TIBC, CEA, T4F, TSH3, YUSUF, [id number], CMP #### [place] [address] [place] #### METH #### [facility] , MCHC Auto (RBC) [Mass/Vol]Or dered By: Estela Varma on 06-25-2023 MCHC (RBC) [Mass/Vol] 33.7 g/dL 32.5-35.6 [facility] MCV [Entitic volume] by Auto mated countOrdered By: Estela Varma on 06-25-2023 MCV (RBC) [Entitic vol] 97.6 fL Normal 83.5-101 [facility] Comment on above: Performed By: #### C BC, MARILU, LIPASE, FE and TIBC, CEA, T4F, TSH3, YUSUF, [id number], CMP #### [address] #### METH #### [facility] , Methylmalonic Acidon 024 Methylmalonic Acid 115 Normal 0-378 [facility] Comment on above: Result Comment: This test was developed and its performance characteristics determined by [employer]. It has not been cleared or approved by the Food and Drug Administration. Performed at: [facility] [address] [id number] Siding Applicator: Loc De Jesus MD, Phone: [phone] PERFORMED BY: [place] [address] PATHOLOGIST BAD CLOTH CHECKER CATY DELCID M.D. Performed By: #### C BC, MARILU, LIPASE, FE and TIBC, CEA, T4F, TSH3, YUSUF, [id number], CMP #### [address] #### METH #### [facility] , Neutrophils [#/volume] in Bl ood by Automated countOrdered By: Estela Varma on 06-25-2023 Neutrophils (Bld) [#/Vol] 6.5 10*3/uL Normal 1.8-7.7 [facility] Comment on above: Performed By: #### C BC, MARILU, LIPASE, FE and TIBC, CEA, T4F, TSH3, YUSUF, [id number], CMP #### [address] #### METH #### [facility] , No Panel InformationOrdered By: Estela Varma on 06-25-2023 Estimated GFR (CKD-EPI) > 60.0 mL/Min [facility] Creatinine Clearance (Chem 108.93 [facility] Nucleated erythrocytes [Pres ence] in Blood by Automated countOrdered By: Estela Varma on 06-25-2023 Nucleated RBC Auto Ql (Bld) 0.2 /100{WBC} 0-0.5 [facility] PET tumor subq tx strat sb-m ton 06-25-2023 PET tumor subq tx strat sb-mt [facility] Main [place] [address] [place] [address] Nuclear Medicine Report Signed Patient: Kirill Echols MR#: [id number] : 1965 Acct:[id number] Age/Sex: 58 / M ADM Date: 06/25/23 Loc: Room: Type: [facility] RCR Attending Dr: Estela Varma II, DO [...] Ellison Jr., D.O.06/25/2023 10:28 AM Dictation Location: [place] [address] Transcribed By: MARU 06/25/23 1028 Dictated By: Victorino Ellison Jr, DO 06/25/23 1017 Signed By: 06/25/23 1028 Normal [facility] Platelet mean volume [Entiti c volume] in Blood by Automated countOrdered By: Estela Varma on 06-25-2023 Platelet mean volume (Bld) [Entitic vol] 7.4 fL Normal 6.6-10.1 [facility] Comment on above: Performed By: #### C BC, MARILU, LIPASE, FE and TIBC, CEA, T4F, TSH3, YUSUF, [id number], CMP #### [address] #### METH #### [facility] , Platelets [#/volume] in Bloo d by Automated countOrdered By: Estela Varma on 06-25-2023 Platelets (Bld) [#/Vol] 196 10*3/uL Normal 150-450 [facility] Comment on above: Performed By: #### C BC, MARILU, LIPASE, FE and TIBC, CEA, T4F, TSH3, YUSUF, [id number], CMP #### [place] [address] [place] #### METH #### [facility] , Potassium [Moles/volume] in Serum or PlasmaOrdered By: Estela Varma on 06-25-2023 Potassium [Moles/Vol] 4.2 mmol/L Normal 3.5-5.1 [facility] Comment on above: Performed By: #### C BC, MARILU, LIPASE, FE and TIBC, CEA, T4F, TSH3, YUSUF, [id number], CMP #### [facility] [address] [place] [address] [place] #### METH #### [facility] , Protein [Mass/volume] in Ser um or PlasmaOrdered By: Estela Varma on 06-25-2023 Protein [Mass/Vol] 6.9 g/dL Normal 6.4-8.9 [facility] Comment on above: Performed By: #### C BC, MARILU, LIPASE, FE and TIBC, CEA, T4F, TSH3, YUSUF, [id number], CMP #### [facility] [address] [place] [address] [place] #### METH #### [facility] , Serum globulin measurement b y calculation (mass/volume)Ordered By: Estela Varma on 06-25-2023 Globulin (S) [Mass/Vol] 3.0 g/dL [facility] Comment on above: Performed By: #### C BC, MARILU, LIPASE, FE and TIBC, CEA, T4F, TSH3, YUSUF, [id number], CMP #### [facility] [address] [place] [address] [place] #### METH #### [facility] , Serum or plasma albumin/glob ulin mass ratioOrdered By: Estela Varma on 06-25-2023 Albumin/Globulin [Mass ratio] 1.3 {ratio} [facility] Comment on above: Performed By: #### C BC, MARILU, LIPASE, FE and TIBC, CEA, T4F, TSH3, YUSUF, [id number], CMP #### [facility] [address] [place] [address] [place] #### METH #### [facility] , Serum or plasma anion gap de terminationOrdered By: Estela Varma on 06-25-2023 Anion gap [Moles/Vol] 11.0 mmol/L Normal 6.0-15.0 [facility] Comment on above: Performed By: #### C BC, MARILU, LIPASE, FE and TIBC, CEA, T4F, TSH3, YUSUF, [id number], CMP #### [facility] [address] [place] [address] [place] #### METH #### [facility] , Serum or plasma carcinoembry onic antigen measurement (mass/volume)Ordered By: Estela Varma on 06-25-2023 Carcinoembryonic Ag [Mass/Vol] 9.4 ng/mL 0.0-3.0 [facility] Comment on above: Serial tumor marker results determined by assays using different manufacturers or methods may not be comparable.[facility] tie hacker and method:VALENTINE UNICEL DXI, 2 SITE IMMUNOENZYMATIC SANDWICH ASSAY. Sodium [Moles/volume] in Ser um or PlasmaOrdered By: Estela Varma on 06-25-2023 Sodium [Moles/Vol] 126 mmol/L Low 136-145 [facility] Comment on above: Performed By: #### C BC, MARILU, LIPASE, FE and TIBC, CEA, T4F, TSH3, YUSUF, [id number], CMP #### [address] #### METH #### [facility] , Thyrotropin [Units/volume] i n Serum or PlasmaOrdered By: Estela Varma on 06-25-2023 TSH Qn 9.92 m[IU]/L High 0.45-5.33 [facility] Comment on above: Result Comment: PERF ORMED BY: [place] [address] PATHOLOGIST BAD CLOTH CHECKER CATY DELCID M.D. Performed By: #### C BC, MARILU, LIPASE, FE and TIBC, CEA, T4F, TSH3, YUSUF, [id number], CMP #### [address] #### METH #### [facility] , Thyroxine (T4) free [Mass/vo lume] in Serum or PlasmaOrdered By: Estela Varma on 06-25-2023 Free T4 [Mass/Vol] 0.71 ng/dL Normal 0.61-1.12 [facility] Comment on above: Performed By: #### C BC, MARILU, LIPASE, FE and TIBC, CEA, T4F, TSH3, YUSUF, [id number], CMP #### [place] [address] [place] #### METH #### [facility] , Transferrin [Mass/volume] in Serum or PlasmaOrdered By: Estela Varma on 06-25-2023 Transferrin [Mass/Vol] 173 mg/dL Low 203-362 [facility] Comment on above: Performed By: #### C BC, MARILU, LIPASE, FE and TIBC, CEA, T4F, TSH3, YUSUF, [id number], CMP #### [place] [address] [place] #### METH #### [facility] , Urea nitrogen [Mass/volume] in Serum or PlasmaOrdered By: Estela Varma on 06-25-2023 Urea nitrogen [Mass/Vol] 5 mg/dL Low 7-25 [facility] Comment on above: Performed By: #### C BC, MARILU, LIPASE, FE and TIBC, CEA, T4F, TSH3, YUSUF, [id number], CMP #### [place] [address] [place] #### METH #### [facility] , Vit. B12/Folate Profileon Folate 9.6 ng/mL Normal >5.9 [facility] Comment on above: Result Comment: Estrella te reference range: >5.9 ng/ml The WHO technical consultation on folate and vitamin b12 deficiencies has determined that folate concentrations less than 4 ng/ml are considered deficient. Performed By: #### C BC, MARILU, LIPASE, FE and TIBC, CEA, T4F, TSH3, YUSUF, [id number], CMP #### [place] [address] [place] #### METH #### [facility] , Vitamin B12 ser/plasOrdered By: Estela Varma on 06-25-2023 Cobalamin (Vitamin B12) [Mass/Vol] 309 pg/mL Normal 180-914 [facility] Comment on above: Performed By: #### C BC, MARILU, LIPASE, FE and TIBC, CEA, T4F, TSH3, YUSUF, [id number], CMP #### [place] [address] [place] #### METH #### [facility] , Amylaseon 03-30-2023 Amylase [Catalytic activity/Vol] 48 U/L Normal 29-103 [facility] Comment on above: Performed By: #### C BC, MARILU, LIPASE, FE and TIBC, CEA, T4F, TSH3, YUSUF, [id number], CMP #### [address] #### METH #### [facility] , Complete Blood Count Auto Di ffon 03-30-2023 Basophils (Bld) [#/Vol] 0.0 10*3/uL Normal 0.0-0.2 [facility] Comment on above: Result Comment: PERF ORMED BY: [place] [address] PATHOLOGIST BAD CLOTH CHECKER CATY DELCID M.D. Performed By: #### C BC, MARILU, LIPASE, FE and TIBC, CEA, T4F, TSH3, YUSUF, [id number], CMP #### [address] #### METH #### [facility] , Basophils/100 WBC (Bld) 0.6 % Normal . [facility] Comment on above: Performed By: #### C BC, MARILU, LIPASE, FE and TIBC, CEA, T4F, TSH3, YUSUF, [id number], CMP #### [place] [address] [place] #### METH #### [facility] , Eosinophils (Bld) [#/Vol] 0.2 10*3/uL Normal 0.0-0.45 [facility] Comment on above: Performed By: #### C BC, MARILU, LIPASE, FE and TIBC, CEA, T4F, TSH3, YUSUF, [id number], CMP #### [place] [address] [place] #### METH #### [facility] , Eosinophils/100 WBC (Bld) 4.8 % Normal . [facility] Comment on above: Performed By: #### C BC, MARILU, LIPASE, FE and TIBC, CEA, T4F, TSH3, YUSUF, [id number], CMP #### [place] [address] [place] #### METH #### [facility] , Erythrocyte distribution width (RBC) [Ratio] 15.7 % High 12.0-14.8 [facility] Comment on above: Performed By: #### C BC, MARILU, LIPASE, FE and TIBC, CEA, T4F, TSH3, YUSUF, [id number], CMP #### [address] #### METH #### [facility] , Hematocrit (Bld) [Volume fraction] 39.3 % Normal 38.8-50.0 [facility] Comment on above: Performed By: #### C BC, MARILU, LIPASE, FE and TIBC, CEA, T4F, TSH3, YUSUF, [id number], CMP #### [place] [address] [place] #### METH #### [facility] , Hemoglobin (Bld) [Mass/Vol] 13.3 g/dL Normal 13.0-17.0 [facility] Comment on above: Performed By: #### C BC, MARILU, LIPASE, FE and TIBC, CEA, T4F, TSH3, YUSUF, [id number], CMP #### [place] [address] [place] #### METH #### [facility] , Lymphocytes (Bld) [#/Vol] 0.8 10*3/uL Low 1.00-4.8 [facility] Comment on above: Performed By: #### C BC, MARILU, LIPASE, FE and TIBC, CEA, T4F, TSH3, YUSUF, [id number], CMP #### [place] [address] [place] #### METH #### [facility] , Lymphocytes/100 WBC (Bld) 14.7 % Normal . [facility] Comment on above: Performed By: #### C BC, MARILU, LIPASE, FE and TIBC, CEA, T4F, TSH3, YUSUF, [id number], CMP #### [place] [address] [place] #### METH #### [facility] , MCH (RBC) [Entitic mass] 33.1 pg Normal 27.5-35.2 [facility] Comment on above: Performed By: #### C BC, MARILU, LIPASE, FE and TIBC, CEA, T4F, TSH3, YUSUF, [id number], CMP #### [place] [address] [place] #### METH #### [facility] , MCV (RBC) [Entitic vol] 98.1 fL Normal 83.5-101 [facility] Comment on above: Performed By: #### C BC, MARILU, LIPASE, FE and TIBC, CEA, T4F, TSH3, YUSUF, [id number], CMP #### [place] [address] [place] #### METH #### [facility] , Mean Corpuscular HGB Conc 33.8 g/dL Normal 32.5-35.6 [facility] Comment on above: Performed By: #### C BC, MARILU, LIPASE, FE and TIBC, CEA, T4F, TSH3, YUSUF, [id number], CMP #### [place] [address] [place] #### METH #### [facility] , Monocytes (Bld) [#/Vol] 0.6 10*3/uL Normal 0.0-0.8 [facility] Comment on above: Performed By: #### C BC, MARILU, LIPASE, FE and TIBC, CEA, T4F, TSH3, YUSUF, [id number], CMP #### [place] [address] [place] #### METH #### [facility] , Monocytes/100 WBC (Bld) 12.2 % Normal . [facility] Comment on above: Performed By: #### C BC, MARILU, LIPASE, FE and TIBC, CEA, T4F, TSH3, YUSUF, [id number], CMP #### [place] [address] [place] #### METH #### [facility] , Neutrophils (Bld) [#/Vol] 3.5 10*3/uL Normal 1.8-7.7 [facility] Comment on above: Performed By: #### C BC, MARILU, LIPASE, FE and TIBC, CEA, T4F, TSH3, YUSUF, [id number], CMP #### [place] [address] [place] #### METH #### [facility] , Neutrophils/100 WBC (Bld) 67.7 % Normal . [facility] Comment on above: Performed By: #### C BC, MARILU, LIPASE, FE and TIBC, CEA, T4F, TSH3, YUSFU, [id number], CMP #### [place] [address] [place] #### METH #### [facility] , NRBC% 0.1 /100{WBC} Normal 0-0.5 [facility] Comment on above: Performed By: #### C BC, MARILU, LIPASE, FE and TIBC, CEA, T4F, TSH3, YUSUF, [id number], CMP #### [place] [address] [place] #### METH #### [facility] , Platelet mean volume (Bld) [Entitic vol] 7.3 fL Normal 6.6-10.1 [facility] Comment on above: Performed By: #### C BC, MARILU, LIPASE, FE and TIBC, CEA, T4F, TSH3, YUSUF, [id number], CMP #### [address] #### METH #### [facility] , Platelets (Bld) [#/Vol] 155 10*3/uL Normal 150-450 [facility] Comment on above: Performed By: #### C BC, MRAILU, LIPASE, FE and TIBC, CEA, T4F, TSH3, YUSUF, [id number], CMP #### [place] [address] [place] #### METH #### [facility] , RBC (Bld) [#/Vol] 4.00 10*6/uL Normal 3.90-5.60 [facility] Comment on above: Performed By: #### C BC, MARILU, LIPASE, FE and TIBC, CEA, T4F, TSH3, YUSUF, [id number], CMP #### [place] [address] [place] #### METH #### [facility] , WBC (Bld) [#/Vol] 5.2 10*3/uL Normal 4.1-10.5 [facility] Comment on above: Performed By: #### C BC, MARILU, LIPASE, FE and TIBC, CEA, T4F, TSH3, YUSUF, [id number], CMP #### [place] [address] [place] #### METH #### [facility] , Comprehensive Metabolic Pane nicolas 03-30-2023 Albumin [Mass/Vol] 3.9 g/dL Normal 3.5-5.7 [facility] Comment on above: Performed By: #### C BC, MARILU, LIPASE, FE and TIBC, CEA, T4F, TSH3, YUSUF, [id number], CMP #### [address] #### METH #### [facility] , Albumin/Globulin [Mass ratio] 1.3 {ratio} Normal [facility] Comment on above: Performed By: #### C BC, MARILU, LIPASE, FE and TIBC, CEA, T4F, TSH3, YUSUF, [id number], CMP #### [place] [address] [place] #### METH #### [facility] , ALP [Catalytic activity/Vol] 136 U/L High 34-104 [facility] Comment on above: Performed By: #### C BC, MARILU, LIPASE, FE and TIBC, CEA, T4F, TSH3, YUSUF, [id number], CMP #### [place] [address] [place] #### METH #### [facility] , ALT [Catalytic activity/Vol] 11 U/L Normal 7-52 [facility] Comment on above: Performed By: #### C BC, MARILU, LIPASE, FE and TIBC, CEA, T4F, TSH3, YUSUF, [id number], CMP #### [address] #### METH #### [facility] , Anion gap [Moles/Vol] 10.4 mmol/L Normal 6.0-15.0 [facility] Comment on above: Performed By: #### C BC, MARILU, LIPASE, FE and TIBC, CEA, T4F, TSH3, YUSUF, [id number], CMP #### [place] [address] [place] #### METH #### [facility] , AST [Catalytic activity/Vol] 18 U/L Normal 13-39 [facility] Comment on above: Performed By: #### C BC, MARILU, LIPASE, FE and TIBC, CEA, T4F, TSH3, YUSUF, [id number], CMP #### [place] [address] [place] #### METH #### [facility] , Bilirubin [Mass/Vol] 0.7 mg/dL Normal 0.3-1.0 [facility] Comment on above: Performed By: #### C BC, MARILU, LIPASE, FE and TIBC, CEA, T4F, TSH3, YUSUF, [id number], CMP #### [place] [address] [place] #### METH #### [facility] , Calcium [Mass/Vol] 8.5 mg/dL Low 8.6-10.3 [facility] Comment on above: Performed By: #### C BC, MARILU, LIPASE, FE and TIBC, CEA, T4F, TSH3, YUSUF, [id number], CMP #### [place] [address] [place] #### METH #### [facility] , Chloride [Moles/Vol] 102 mmol/L Normal 98-107 [facility] Comment on above: Performed By: #### C BC, MARILU, LIPASE, FE and TIBC, CEA, T4F, TSH3, YUSUF, [id number], CMP #### [place] [address] [place] #### METH #### [facility] , CO2 [Moles/Vol] 21.7 mmol/L Normal 21.0-31.0 [facility] Comment on above: Performed By: #### C BC, MARILU, LIPASE, FE and TIBC, CEA, T4F, TSH3, YUSUF, [id number], CMP #### [place] [address] [place] #### METH #### [facility] , Creatinine [Mass/Vol] 0.80 mg/dL Normal 0.70-1.30 [facility] Comment on above: Performed By: #### C BC, MARILU, LIPASE, FE and TIBC, CEA, T4F, TSH3, YUSUF, [id number], CMP #### [place] [address] [place] #### METH #### [facility] , Creatinine Clr Calc Pharmacy 96.47 Normal [facility] Comment on above: Performed By: #### C BC, MARILU, LIPASE, FE and TIBC, CEA, T4F, TSH3, YUSUF, [id number], CMP #### [place] [address] [place] #### METH #### [facility] , GFR/1.73 sq M.predicted MDRD (S/P/Bld) [Vol rate/Area] mL/min/{1.73_m2} Normal [facility] Comment on above: Performed By: #### C BC, MARILU, LIPASE, FE and TIBC, CEA, T4F, TSH3, YUSUF, [id number], CMP #### [place] [address] [place] #### METH #### [facility] , Globulin (S) [Mass/Vol] 2.9 g/dL Normal [facility] Comment on above: Performed By: #### C BC, MARILU, LIPASE, FE and TIBC, CEA, T4F, TSH3, YUSUF, [id number], CMP #### [place] [address] [place] #### METH #### [facility] , Glucose [Mass/Vol] 84 mg/dL Normal 70-100 [facility] Comment on above: Result Comment: [place] Glucose Reference Range is dependent on time and content of last meal. Glucose of more than 200 mg/dL in a nonstressed, ambulatory subject supports the diagnosis of Diabetes Mellitus. ADA recommended reference range Performed By: #### C BC, MARILU, LIPASE, FE and TIBC, CEA, T4F, TSH3, YUSUF, [id number], CMP #### [place] [address] [place] #### METH #### [facility] , Potassium [Moles/Vol] 4.1 mmol/L Normal 3.5-5.1 [facility] Comment on above: Performed By: #### C BC, MARILU, LIPASE, FE and TIBC, CEA, T4F, TSH3, YUSUF, [id number], CMP #### [place] [address] [place] #### METH #### [facility] , Protein [Mass/Vol] 6.8 g/dL Normal 6.4-8.9 [facility] Comment on above: Performed By: #### C BC, MARILU, LIPASE, FE and TIBC, CEA, T4F, TSH3, YUSUF, [id number], CMP #### [place] [address] [place] #### METH #### [facility] , Sodium [Moles/Vol] 130 mmol/L Low 136-145 [facility] Comment on above: Performed By: #### C BC, MARILU, LIPASE, FE and TIBC, CEA, T4F, TSH3, YUSUF, [id number], CMP #### [place] [address] [place] #### METH #### [facility] , Urea nitrogen [Mass/Vol] 5 mg/dL Low 7-25 [facility] Comment on above: Performed By: #### C BC, MARILU, LIPASE, FE and TIBC, CEA, T4F, TSH3, YUSUF, [id number], CMP #### [place] [address] [place] #### METH #### [facility] , Folateon 03-30-2023 Folate 15.4 ng/mL Normal >5.9 [facility] Comment on above: Result Comment: Estrella te reference range: >5.9 ng/ml The WHO technical consultation on folate and vitamin b12 deficiencies has determined that folate concentrations less than 4 ng/ml are considered deficient. Performed By: #### C BC, MARILU, LIPASE, FE and TIBC, CEA, T4F, TSH3, YUSUF, [id number], CMP #### [address] #### METH #### [facility] , Free T4 (Free Thyroxine)on 05-30-2022 Free T4 [Mass/Vol] 0.50 ng/dL Low 0.61-1.12 [facility] Comment on above: Result Comment: PERF ORMED BY: [place] [address] PATHOLOGIST BAD CLOTH CHECKER CATY DELCID M.D. Performed By: #### C BC, MARILU, LIPASE, FE and TIBC, CEA, T4F, TSH3, YUSUF, [id number], CMP #### [address] #### METH #### [facility] , Iron and TIBC Profileon 03-14 % Iron Saturation 67.5 % High 20-50 [facility] Comment on above: Performed By: #### C BC, MARILU, LIPASE, FE and TIBC, CEA, T4F, TSH3, YUSUF, [id number], CMP #### [place] [address] [place] #### METH #### [facility] , Iron [Mass/Vol] 154 ug/dL Normal 50-212 [facility] Comment on above: Performed By: #### C BC, MARILU, LIPASE, FE and TIBC, CEA, T4F, TSH3, YUSUF, [id number], CMP #### [place] [address] [place] #### METH #### [facility] , Total Iron Binding Capacity 228 ug/dL Low 255-450 [facility] Comment on above: Performed By: #### C BC, MARILU, LIPASE, FE and TIBC, CEA, T4F, TSH3, YUSUF, [id number], CMP #### [place] [address] [place] #### METH #### [facility] , Transferrin [Mass/Vol] 163 mg/dL Low 203-362 [facility] Comment on above: Performed By: #### C BC, MARILU, LIPASE, FE and TIBC, CEA, T4F, TSH3, YUSUF, [id number], CMP #### [place] [address] [place] #### METH #### [facility] , Lipaseon 03-30-2023 Lipase [Catalytic activity/Vol] 22.0 U/L Normal 11.0-82.0 [facility] Comment on above: Performed By: #### C BC, MARILU, LIPASE, FE and TIBC, CEA, T4F, TSH3, YUSUF, [id number], CMP #### [place] [address] [place] #### METH #### [facility] , Methylmalonic Acidon 023 Methylmalonic Acid 129 Normal 0-378 [facility] Comment on above: Result Comment: This test was developed and its performance characteristics determined by [facility]. It has not been cleared or approved by the Food and Drug Administration. Performed at: [address] [id number] Siding Applicator: Loc De Jesus MD, Phone: [phone] PERFORMED BY: [place] [address] PATHOLOGIST BAD CLOTH CHECKER CATY DELCID M.D. Performed By: #### C BC, MARILU, LIPASE, FE and TIBC, CEA, T4F, TSH3, YUSUF, [id number], CMP #### [place] [address] [place] #### METH #### [facility] , Serum or plasma methylmalona te measurement (moles/volume)Ordered By: Estela Varma on 03-30-2023 Methylmalonate [Moles/Vol] 129 nmol/L 0-378 [facility] Comment on above: This test was develo ped and its performance characteristicsdetermined by [facility]. It has not been cleared orapproved by the Food and Drug Administration.Performed at: [address] [id number] Director: Loc De Jesus MD, Phone: [phone] Vitamin B12on 03-30-2023 Cobalamin (Vitamin B12) [Mass/Vol] 462 pg/mL Normal 180-914 [facility] Comment on above: Performed By: #### C BC, MARILU, LIPASE, FE and TIBC, CEA, T4F, TSH3, YUSUF, [id number], CMP #### [facility] [address] #### METH #### [facility] , Alanine aminotransferase [En zymatic activity/volume] in Serum or PlasmaOrdered By: Estela Varma on 12-22-2022 ALT [Catalytic activity/Vol] 13 U/L 7-52 [facility] Albumin [Mass/volume] in Ser um or Plasma by Bromocresol green (BCG) dye binding methoOrdered By: Estela Varma on 12-22-2022 Albumin BCG dye [Mass/Vol] 3.7 g/dL 3.5-5.7 [facility] Alkaline phosphatase [Enzyma tic activity/volume] in Serum or PlasmaOrdered By: Estela Varma on 12-22-2022 ALP [Catalytic activity/Vol] 122 U/L 34-104 [facility] Aspartate aminotransferase [ Enzymatic activity/volume] in Serum or PlasmaOrdered By: Estela Varma on 12-22-2022 AST [Catalytic activity/Vol] 17 U/L 13-39 [facility] Basophils Auto (Bld) [#/Vol] Ordered By: Estela Varma on 12-22-2022 Basophils (Bld) [#/Vol] 0.1 10*3/uL 0.0-0.2 [facility] Basophils/100 WBC Auto (Bld) Ordered By: Estela Varma on 12-22-2022 Basophils/100 WBC (Bld) 1.3 % . [facility] Bilirubin.total [Mass/volume ] in Serum or PlasmaOrdered By: Estela Varma on 12-22-2022 Bilirubin [Mass/Vol] 0.5 mg/dL 0.3-1.0 [facility] Calcium [Mass/volume] in Ser um or PlasmaOrdered By: Estela Varma on 12-22-2022 Calcium [Mass/Vol] 8.0 mg/dL 8.6-10.3 [facility] Carbon dioxide, total [Moles /volume] in Serum or PlasmaOrdered By: Estela Varma on 12-22-2022 CO2 [Moles/Vol] 23.2 mmol/L 21.0-31.0 [facility] Chloride [Moles/volume] in S coral or PlasmaOrdered By: Estela Varma on 12-22-2022 Chloride [Moles/Vol] 100 mmol/L 98-107 [facility] Creatinine [Mass/volume] in Serum or PlasmaOrdered By: Estela Varma on 12-22-2022 Creatinine [Mass/Vol] 0.69 mg/dL 0.70-1.30 [facility] Eosinophils Auto (Bld) [#/Vo l]Ordered By: Estela Varma on 12-22-2022 Eosinophils (Bld) [#/Vol] 0.3 10*3/uL 0.0-0.45 [facility] Eosinophils/100 WBC Auto (Bl d)Ordered By: Estela Varma on 12-22-2022 Eosinophils/100 WBC (Bld) 5.0 % . [facility] Erythrocyte distribution wid th Auto (RBC) [Ratio]Ordered By: Estela Varma on 12-22-2022 Erythrocyte distribution width (RBC) [Ratio] 16.0 % 12.0-14.8 [facility] Globulin Calc (S) [Mass/Vol] Ordered By: Estela Varma on 12-22-2022 Globulin (S) [Mass/Vol] 2.3 g/dL [facility] Glucose Glucometer (BldC) [M ass/Vol]Ordered By: Estela Varma on 12-22-2022 Glucose [Mass/Vol] 71 mg/dL [facility] Comment on above: Random Glucose Refer ence Range is dependent on time and content of last meal. Glucose of more than 200 mg/dL in a nonstressed, ambulatory subject supports the diagnosis of Diabetes Mellitus. Glucose [Mass/volume] in Ser um or PlasmaOrdered By: Estela Varma on 12-22-2022 Glucose [Mass/Vol] 65 mg/dL 70-100 [facility] Comment on above: ADA recommended refe rence rangeRandom Glucose Reference Range is dependent on time and content of last meal. Glucose of more than 200 mg/dL in a nonstressed, ambulatory subject supports the diagnosis of Diabetes Mellitus. Hematocrit Auto (Bld) [Volum e fraction]Ordered By: Estela Varma on 12-22-2022 Hematocrit (Bld) [Volume fraction] 39.6 % 38.8-50.0 [facility] Hemoglobin [Mass/volume] in BloodOrdered By: Estela Varma on 12-22-2022 Hemoglobin (Bld) [Mass/Vol] 13.3 g/dL 13.0-17.0 [facility] Leukocytes [#/volume] correc chris for nucleated erythrocytes in Blood by Automated counOrdered By: Estela Varma on 12-22-2022 WBC corrected for nucl RBC Auto (Bld) [#/Vol] 6.0 10*3/uL 4.1-10.5 [facility] Lymphocytes Auto (Bld) [#/Vo l]Ordered By: Estela Varma on 12-22-2022 Lymphocytes (Bld) [#/Vol] 0.9 10*3/uL 1.00-4.8 [facility] Lymphocytes/100 WBC Auto (Bl d)Ordered By: Estela Varma on 12-22-2022 Lymphocytes/100 WBC (Bld) 15.7 % . [facility] MCH Auto (RBC) [Entitic mass ]Ordered By: Estela Varma on 12-22-2022 MCH (RBC) [Entitic mass] 31.9 pg 27.5-35.2 [facility] MCHC Auto (RBC) [Mass/Vol]Or dered By: Estela Varma on 12-22-2022 MCHC (RBC) [Mass/Vol] 33.5 g/dL 32.5-35.6 [facility] MCV Auto (RBC) [Entitic vol] Ordered By: Estela Varma on 12-22-2022 MCV (RBC) [Entitic vol] 95.0 fL 83.5-101 [facility] Monocytes Auto (Bld) [#/Vol] Ordered By: Estela Varma on 12-22-2022 Monocytes (Bld) [#/Vol] 0.5 10*3/uL 0.0-0.8 [facility] Monocytes/100 WBC Auto (Bld) Ordered By: Estela Varma on 12-22-2022 Monocytes/100 WBC (Bld) 7.8 % . [facility] Neutrophils Auto (Bld) [#/Vo l]Ordered By: Estela Varma on 12-22-2022 Neutrophils (Bld) [#/Vol] 4.2 10*3/uL 1.8-7.7 [facility] Neutrophils/100 WBC Auto (Bl d)Ordered By: Estela Varma on 12-22-2022 Neutrophils/100 WBC (Bld) 70.2 % . [facility] No Panel InformationOrdered By: Estela Varma on 12-22-2022 Estimated GFR (CKD-EPI) > 60.0 mL/Min [facility] Creatinine Clearance (Chem 114.05 [facility] Nucleated erythrocytes [Pres ence] in Blood by Automated countOrdered By: Estela Varma on 12-22-2022 Nucleated RBC Auto Ql (Bld) 0.0 /100{WBC} 0-0.5 [facility] Platelet mean volume Auto (B ld) [Entitic vol]Ordered By: Estela Varma on 12-22-2022 Platelet mean volume (Bld) [Entitic vol] 6.9 fL 6.6-10.1 [facility] Platelets Auto (Bld) [#/Vol] Ordered By: Estela Varma on 12-22-2022 Platelets (Bld) [#/Vol] 177 10*3/uL 150-450 [facility] Potassium [Moles/volume] in Serum or PlasmaOrdered By: Estela Varma on 12-22-2022 Potassium [Moles/Vol] 4.2 mmol/L 3.5-5.1 [facility] Protein [Mass/volume] in Ser um or PlasmaOrdered By: Estela Varma on 12-22-2022 Protein [Mass/Vol] 6.0 g/dL 6.4-8.9 [facility] RBC Auto (Bld) [#/Vol]Ordere d By: Estela Varma on 12-22-2022 RBC (Bld) [#/Vol] 4.17 10*6/uL 3.90-5.60 [facility] Serum or plasma albumin/glob ulin mass ratioOrdered By: Estela Varma on 12-22-2022 Albumin/Globulin [Mass ratio] 1.6 {ratio} [facility] Serum or plasma anion gap de terminationOrdered By: Estela Varma on 12-22-2022 Anion gap [Moles/Vol] 8.0 mmol/L 6.0-15.0 [facility] Sodium [Moles/volume] in Ser um or PlasmaOrdered By: Estela Varma on 12-22-2022 Sodium [Moles/Vol] 127 mmol/L 136-145 [facility] Urea nitrogen [Mass/volume] in Serum or PlasmaOrdered By: Estela Varma on 12-22-2022 Urea nitrogen [Mass/Vol] 6 mg/dL 7-25 [facility] WBC Auto (Bld) [#/Vol]Ordere d By: Estela Varma on 12-22-2022 WBC (Bld) [#/Vol] 6.0 10*3/uL 4.1-10.5 [facility] Alanine aminotransferase [En zymatic activity/volume] in Serum or PlasmaOrdered By: Estela Varma on 10-26-2022 ALT [Catalytic activity/Vol] 12 U/L 7-52 [facility] Albumin [Mass/volume] in Ser um or Plasma by Bromocresol green (BCG) dye binding methoOrdered By: Estela Varma on 10-26-2022 Albumin BCG dye [Mass/Vol] 3.9 g/dL 3.5-5.7 [facility] Alkaline phosphatase [Enzyma tic activity/volume] in Serum or PlasmaOrdered By: Estela Varma on 10-26-2022 ALP [Catalytic activity/Vol] 140 U/L 34-104 [facility] Aspartate aminotransferase [ Enzymatic activity/volume] in Serum or PlasmaOrdered By: Estela Varma on 10-26-2022 AST [Catalytic activity/Vol] 16 U/L 13-39 [facility] Basophils Auto (Bld) [#/Vol] Ordered By: Estela Varma on 10-26-2022 Basophils (Bld) [#/Vol] 0.0 10*3/uL 0.0-0.2 [facility] Basophils/100 WBC Auto (Bld) Ordered By: Estela Varma on 10-26-2022 Basophils/100 WBC (Bld) 0.8 % . [facility] Bilirubin.total [Mass/volume ] in Serum or PlasmaOrdered By: Estela Varma on 10-26-2022 Bilirubin [Mass/Vol] 0.6 mg/dL 0.3-1.0 [facility] Calcium [Mass/volume] in Ser um or PlasmaOrdered By: Estela Varma on 10-26-2022 Calcium [Mass/Vol] 8.3 mg/dL 8.6-10.3 [facility] Carbon dioxide, total [Moles /volume] in Serum or PlasmaOrdered By: Estela Varma on 10-26-2022 CO2 [Moles/Vol] 23.5 mmol/L 21.0-31.0 [facility] Chloride [Moles/volume] in S coral or PlasmaOrdered By: Estela Varma on 10-26-2022 Chloride [Moles/Vol] 98 mmol/L 98-107 [facility] Creatinine [Mass/volume] in Serum or PlasmaOrdered By: Estela Varma on 10-26-2022 Creatinine [Mass/Vol] 0.67 mg/dL 0.70-1.30 [facility] Eosinophils Auto (Bld) [#/Vo l]Ordered By: Estela Varma on 10-26-2022 Eosinophils (Bld) [#/Vol] 0.1 10*3/uL 0.0-0.45 [facility] Eosinophils/100 WBC Auto (Bl d)Ordered By: Estela Varma on 10-26-2022 Eosinophils/100 WBC (Bld) 2.6 % . [facility] Erythrocyte distribution wid th Auto (RBC) [Ratio]Ordered By: Estela Varma on 10-26-2022 Erythrocyte distribution width (RBC) [Ratio] 15.0 % 12.0-14.8 [facility] Erythrocyte sedimentation ra te by Photometric methodOrdered By: Estela Varma on 10-26-2022 ESR Photometric method (Bld) [Velocity] 16 mm/hr 0-19 [facility] Ferritin [Mass/volume] in Se rum or PlasmaOrdered By: Estela Varma on 10-26-2022 Ferritin [Mass/Vol] 225.5 ng/mL 23.9-336.2 [facility] Folate [Mass/volume] in Seru m or PlasmaOrdered By: Estela Varma on 10-26-2022 Folate [Mass/Vol] 4.9 ng/mL >5.9 [facility] Comment on above: Folate reference ran ge: >5.9 ng/mlThe WHO technical consultation on folate and vitamin [id number] has determined that folate concentrations lessthan 4 ng/ml are considered deficient. Globulin Calc (S) [Mass/Vol] Ordered By: Estela Varma on 10-26-2022 Globulin (S) [Mass/Vol] 2.8 g/dL [facility] Glucose [Mass/volume] in Ser um or PlasmaOrdered By: Estela Varma on 10-26-2022 Glucose [Mass/Vol] 66 mg/dL 70-100 [facility] Comment on above: ADA recommended refe rence rangeRandom Glucose Reference Range is dependent on time and content of last meal. Glucose of more than 200 mg/dL in a nonstressed, ambulatory subject supports the diagnosis of Diabetes Mellitus. Hematocrit Auto (Bld) [Volum e fraction]Ordered By: Estela Varma on 10-26-2022 Hematocrit (Bld) [Volume fraction] 39.7 % 38.8-50.0 [facility] Hemoglobin [Mass/volume] in BloodOrdered By: Estela Varma on 10-26-2022 Hemoglobin (Bld) [Mass/Vol] 13.6 g/dL 13.0-17.0 [facility] Iron [Mass/volume] in Serum or PlasmaOrdered By: Estela Varma on 10-26-2022 Iron [Mass/Vol] 103 ug/dL 50-212 [facility] Iron binding capacity [Mass/ volume] in Serum or PlasmaOrdered By: Estela Varma on 10-26-2022 Iron binding capacity [Mass/Vol] 269 ug/dL 255-450 [facility] Iron saturation [Mass Fracti on] in Serum or PlasmaOrdered By: Estela Varma on 10-26-2022 Iron saturation [Mass fraction] 38.3 % 20-50 [facility] Leukocytes [#/volume] correc chris for nucleated erythrocytes in Blood by Automated counOrdered By: Estela Varma on 10-26-2022 WBC corrected for nucl RBC Auto (Bld) [#/Vol] 5.8 10*3/uL 4.1-10.5 [facility] Lymphocytes Auto (Bld) [#/Vo l]Ordered By: Estela Varma on 10-26-2022 Lymphocytes (Bld) [#/Vol] 0.9 10*3/uL 1.00-4.8 [facility] Lymphocytes/100 WBC Auto (Bl d)Ordered By: Estela Varma on 10-26-2022 Lymphocytes/100 WBC (Bld) 15.0 % . [facility] MCH Auto (RBC) [Entitic mass ]Ordered By: Estela Varma on 10-26-2022 MCH (RBC) [Entitic mass] 32.6 pg 27.5-35.2 [facility] MCHC Auto (RBC) [Mass/Vol]Or dered By: Estela Varma on 10-26-2022 MCHC (RBC) [Mass/Vol] 34.2 g/dL 32.5-35.6 [facility] MCV Auto (RBC) [Entitic vol] Ordered By: Estela Varma on 10-26-2022 MCV (RBC) [Entitic vol] 95.2 fL 83.5-101 [facility] Monocytes Auto (Bld) [#/Vol] Ordered By: Estlea Varma on 10-26-2022 Monocytes (Bld) [#/Vol] 0.7 10*3/uL 0.0-0.8 [facility] Monocytes/100 WBC Auto (Bld) Ordered By: Estela Varma on 10-26-2022 Monocytes/100 WBC (Bld) 12.1 % . [facility] Neutrophils Auto (Bld) [#/Vo l]Ordered By: Estela Varma on 10-26-2022 Neutrophils (Bld) [#/Vol] 4.1 10*3/uL 1.8-7.7 [facility] Neutrophils/100 WBC Auto (Bl d)Ordered By: Estela Varma on 10-26-2022 Neutrophils/100 WBC (Bld) 69.5 % . [facility] No Panel InformationOrdered By: Estela Varma on 10-26-2022 Estimated GFR (CKD-EPI) > 60.0 mL/Min [facility] Creatinine Clearance (Chem 121.12 [facility] Nucleated erythrocytes [Pres ence] in Blood by Automated countOrdered By: Estela Varma on 10-26-2022 Nucleated RBC Auto Ql (Bld) 0.2 /100{WBC} 0-0.5 [facility] Platelet mean volume Auto (B ld) [Entitic vol]Ordered By: Estela Varma on 10-26-2022 Platelet mean volume (Bld) [Entitic vol] 6.7 fL 6.6-10.1 [facility] Platelets Auto (Bld) [#/Vol] Ordered By: Estela Varma on 10-26-2022 Platelets (Bld) [#/Vol] 227 10*3/uL 150-450 [facility] Potassium [Moles/volume] in Serum or PlasmaOrdered By: Estela Varma on 10-26-2022 Potassium [Moles/Vol] 4.1 mmol/L 3.5-5.1 [facility] Protein [Mass/volume] in Ser um or PlasmaOrdered By: Estela Varma on 10-26-2022 Protein [Mass/Vol] 6.7 g/dL 6.4-8.9 [facility] RBC Auto (Bld) [#/Vol]Ordere d By: Estela Varma on 10-26-2022 RBC (Bld) [#/Vol] 4.17 10*6/uL 3.90-5.60 [facility] Serum or plasma albumin/glob ulin mass ratioOrdered By: Estela Varma on 10-26-2022 Albumin/Globulin [Mass ratio] 1.4 {ratio} [facility] Serum or plasma anion gap de terminationOrdered By: Estela Varma on 10-26-2022 Anion gap [Moles/Vol] 11.6 mmol/L 6.0-15.0 [facility] Serum or plasma carcinoembry onic antigen measurement (mass/volume)Ordered By: Estela Varma on 10-26-2022 Carcinoembryonic Ag [Mass/Vol] 8.0 ng/mL 0.0-3.0 [facility] Serum or plasma erythropoiet in (EPO) measurement (units/volume)Ordered By: Estela Varma on 10-26-2022 Erythropoietin (EPO) Qn 15.7 mIU/mL 2.6-18.5 [facility] Comment on above: Journeys el DxI 800 Immunoassay SystemValues obtained with different assay methods or kits cannotbe used interchangeably. Results cannot be interpreted asabsolute evidence of the presence or absence of malignantdisease.Performed at: [facility] [address] [id number] Director: Fernando Brand PhD, Phone: [phone] Sodium [Moles/volume] in Ser um or PlasmaOrdered By: Estela Varma on 10-26-2022 Sodium [Moles/Vol] 129 mmol/L 136-145 [facility] Transferrin [Mass/volume] in Serum or PlasmaOrdered By: Estela Varma on 10-26-2022 Transferrin [Mass/Vol] 192 mg/dL 203-362 [facility] Urea nitrogen [Mass/volume] in Serum or PlasmaOrdered By: Estela Varma on 10-26-2022 Urea nitrogen [Mass/Vol] 8 mg/dL 7-25 [facility] Vitamin B12 ser/plasOrdered By: Estela Varma on 10-26-2022 Cobalamin (Vitamin B12) [Mass/Vol] 252 pg/mL 180-914 [facility] WBC Auto (Bld) [#/Vol]Ordere d By: Estela Varma on 10-26-2022 WBC (Bld) [#/Vol] 5.8 10*3/uL 4.1-10.5 [facility] CYTOLOGYon 10-03-2022 SENT TO REF LAB 10/04/2022 Normal [facility] [place] [facility] Comment on above: Performed By: #### C YTO #### [facility] [address] [place] [address] Dr. Sushant Pradhan CULTURE STERILE BODY FLUIDon 09-11-2022 CULTURE STERILE BODY FLUID Culture Observations: NO GROWTH AT 72 HRS [facility] Comment on above: Performed By: #### C MREP #### [facility] [address] [place] [address] Dr. Sushant Pradhan CULTURE STERILE BODY FLUIDon 09-08-2022 CULTURE STERILE BODY FLUID Culture Observations: NO GROWTH AT 72 HOURS. [facility] Comment on above: Performed By: #### C MREP #### [facility] [address] [place] [address] Dr. Sushant Pradhan CULTURE STERILE BODY FLUIDon 09-04-2022 CULTURE STERILE BODY FLUID Culture Observations: NO GROWTH AT 72 HOURS. [facility] Comment on above: Performed By: #### C MREP #### [facility] [address] [place] [address] Dr. Sushant Pradhan XR RIBS LT PA [...] JESSE RAMOS Date: 2022-09-01 11:46 Normal [facility] CBC AUTO DIFFon 08-27-2022 BASO # 0.0 103/ul Normal 0.0-0.1 [facility] Comment on above: Performed By: #### C BC #### [facility] [address] [address] [address] Sushant Pradhan Basophils/100 WBC (Bld) 0.3 % Normal 0.2-2.0 [facility] Comment on above: Performed By: #### C BC #### [facility] [address] [place] [address] Dr. Sushant Pradhan EO # 0.2 103/ul Normal 0.0-0.7 [facility] Comment on above: Performed By: #### C BC #### [facility] [address] [address] [address] Sushant Pradhan Eosinophils/100 WBC (Bld) 3.0 % Normal 0.9-7.0 [facility] Comment on above: Performed By: #### C BC #### [facility] [address] [place] [address] Dr. Sushant Pradhan Erythrocyte distribution width (RBC) [Ratio] 16.5 % Critically high 11.0-15.0 [facility] Comment on above: Performed By: #### C BC #### [facility] [address] [place] [address] Dr. Sushant Pradhan Hematocrit (Bld) [Volume fraction] 38.4 % Critically low 42.0-54.0 [facility] Comment on above: Performed By: #### C BC #### [facility] [address] [place] [address] Dr. Sushant Pradhan Hemoglobin (Bld) [Mass/Vol] 13.9 g/dL Critically low 14.0-18.0 [facility] Comment on above: Performed By: #### C BC #### [facility] [address] [place] [address] Dr. Sushant Pradhan IG # 0.01 10e3/ul Normal 0.00-0.03 [facility] Comment on above: Performed By: #### C BC #### [facility] [address] [place] [address] Dr. Sushant Pradhan IG % 0.2 % Normal 0.0-0.5 [facility] Comment on above: Performed By: #### C BC #### [facility] [address] [place] [address] Dr. Sushant Pradhan LYMPH # 1.0 103/ul Critically low 1.2-3.8 [facility] Comment on above: Performed By: #### C BC #### [facility] [address] [place] [address] Dr. Sushant Pradhan Lymphocytes/100 WBC (Bld) 15.8 % Critically low 20.5-60.0 [facility] Comment on above: Performed By: #### C BC #### [facility] [address] [place] [address] Dr. Sushant Pradhan MANUAL DIFF REQ NO Normal [facility] Comment on above: Performed By: #### C BC #### [facility] [address] [place] [address] Dr. Sushant Pradhan MCH (RBC) [Entitic mass] 32.8 pg Normal 25.9-34.0 [facility] Comment on above: Performed By: #### C BC #### [facility] [address] [place], [place] [id number] Dr. Sushant Pradhan MCHC (RBC) [Mass/Vol] 36.2 g/dL Critically high 29.9-35.2 [facility] Comment on above: Performed By: #### C BC #### [facility] [address] [place] [address] Dr. Sushant Pradhan MCV (RBC) [Entitic vol] 90.6 fL Normal 80.0-94.0 [facility] Comment on above: Performed By: #### C BC #### [facility] [address] [place] [address] Dr. Sushant Pradhan MONO # 0.8 103/ul Normal 0.3-0.8 [facility] Comment on above: Performed By: #### C BC #### [facility] [address] [place] [address] Dr. Sushant Pradhan Monocytes/100 WBC (Bld) 12.6 % Critically high 1.7-12.0 [facility] Comment on above: Performed By: #### C BC #### [facility] [address] [place] [address] Dr. Sushant Pradhan NEUT # 4.3 103/ul Normal 1.4-6.5 [facility] Comment on above: Performed By: #### C BC #### [facility] [address] [place] [address] Dr. Sushant Pradhan Neutrophils/100 WBC (Bld) 68.1 % Normal 43.0-75.0 [facility] Comment on above: Performed By: #### C BC #### [facility] [address] [place] [address] Dr. Sushant Pradhan Platelet mean volume (Bld) [Entitic vol] 9.0 fL Critically low 9.5-13.5 [facility] Comment on above: Performed By: #### C BC #### [facility] [address] [place] [address] Dr. Sushant Pradhan PLT 192 103/ul Normal 150-450 [facility] Comment on above: Performed By: #### C BC #### [facility] [address] [place] [address] Dr. Sushant Pradhan RBC 4.24 106/ul Critically low 4.70-6.10 [facility] Comment on above: Performed By: #### C BC #### [facility] [address] [place], [place] [address] Dr. Sushant Pradhan WBC 6.3 103/ul Normal 4.0-11.0 [facility] Comment on above: Performed By: #### C BC #### [facility] [address] [place], [place] [address] CHEST W CONon [...] by: MARCE SHAY Date: 2022-08-27 12:02 Normal [facility] LACTATE/LACTIC ACIDon 2022 Lactate [Moles/Vol] 1.8 mmol/L Normal 0.4-2.0 [facility] Comment on above: Performed By: #### C MREP #### [facility] [address] [address] [address] Sushant Pradhan PROF 14(COMP METB)on 023 Albumin [Mass/Vol] 3.2 g/dL Critically low 3.4-5.0 [facility] Comment on above: Performed By: #### C BC #### [facility] [address] [address] [address] Sushant Pradhan Albumin/Globulin [Mass ratio] 0.7 {ratio} Normal [facility] Comment on above: Performed By: #### C BC #### [facility] [address] [address] [address] Sushant Pradhan ALP [Catalytic activity/Vol] 207 U/L Critically high 46-116 [facility] Comment on above: Performed By: #### C BC #### [facility] [address] [address] [address] Sushant Pradhan ALT [Catalytic activity/Vol] 22 U/L Normal 16-63 [facility] Comment on above: Performed By: #### C BC #### [facility] [address] [address] [address] Sushant Pradhan Anion gap [Moles/Vol] 11.9 mmol/L Normal [facility] Comment on above: Performed By: #### C BC #### [facility] [address] [place] [address] Dr. Sushant Pradhan AST [Catalytic activity/Vol] 23 U/L Normal 15-37 [facility] Comment on above: Performed By: #### C BC #### [facility] [address] [place] [address] Dr. Sushant Pradhan Bilirubin [Mass/Vol] 0.4 mg/dL Normal 0.2-1.0 [facility] Comment on above: Performed By: #### C BC #### [facility] [address] [place] [address] Dr. Sushant Pradhan Calcium [Mass/Vol] 9.2 mg/dL Normal 8.5-10.1 [facility] Comment on above: Performed By: #### C BC #### [facility] [address] [place] [address] Dr. Sushant Pradhan Chloride [Moles/Vol] 97 mmol/L Critically low 98-107 [facility] Comment on above: Performed By: #### C BC #### [facility] [address] [place] [address] Dr. Sushant Pradhan CO2 [Moles/Vol] 28.1 mmol/L Normal 21.0-32.0 [facility] Comment on above: Performed By: #### C BC #### [facility] [address] [place] [address] Dr. Sushant Pradhan Creatinine [Mass/Vol] 0.86 mg/dL Normal 0.70-1.30 [facility] Comment on above: Performed By: #### C BC #### [facility] [address] [place] [address] Dr. Sushant Pradhan EGFR-AF J[place]ICAN >60 Normal >=60 [facility] Comment on above: Performed By: #### C BC #### [facility] [address] [place] [address] Dr. Sushant Pradhan EGFR-NON AF [place] >60 Normal >=60 [facility] Comment on above: Performed By: #### C BC #### [facility] [address] [place] [address] Dr. Sushant Pradhan Globulin (S) [Mass/Vol] 4.8 g/dL Normal [facility] Comment on above: Performed By: #### C BC #### [facility] [address] [place] [address] Dr. Sushant Pradhan Glucose [Mass/Vol] 104 mg/dL Normal 74-106 [facility] Comment on above: Performed By: #### C BC #### [facility] [address] [place] [address] Dr. Sushant Pradhan Potassium [Moles/Vol] 4.0 mmol/L Normal 3.5-5.1 [facility] Comment on above: Performed By: #### C BC #### [facility] [address] [place] [address] Dr. Sushant Pradhan Protein [Mass/Vol] 8.0 g/dL Normal 6.4-8.2 [facility] Comment on above: Performed By: #### C BC #### [facility] [address] [place] [address] Dr. Sushant Pradhan Sodium [Moles/Vol] 133 mmol/L Critically low 136-145 [facility] Comment on above: Performed By: #### C BC #### [facility] [address] [place] [address] Dr. Sushant Pradhan Urea nitrogen [Mass/Vol] 6.0 mg/dL Critically low 7.0-18.0 [facility] Comment on above: Performed By: #### C BC #### [facility] [address] [place] [address] Dr. Sushant Pradhan Urea nitrogen/Creatinine [Mass ratio] 7.0 mg/mg Normal [facility] Comment on above: Performed By: #### C BC #### [facility] [address] [place] [address] Dr. Sushant Pradhan TROPONIN, HIGH SENSITIVITYon 04-16-2023 HSTROP 5.6 pg/mL Normal 4.0-76.1 [facility] Comment on above: Result Comment: CUT- OFF POINTS HAVE BEEN ESTABLISHED BASED ON THE FOURTH UNIVERSAL DEFINITIONS OF MYOCARDIAL INFARCTION. THE UPPER REFERENCE LIMIT (URL) OF TROPONIN, DEFINED THE 99TH PERCENTILE OF cTnI DISTRIBUTION IN A REFERENCE POPULATION, HAS BEEN CONFIRMED THE DECISION THRESHOLD FOR LA DIAGNOSIS. Performed By: #### C BC #### [facility] [address] [place] [address] Dr. Sushant Pradhan HSTROP 5.8 pg/mL Normal 4.0-76.1 [facility] Comment on above: Result Comment: CUT- OFF POINTS HAVE BEEN ESTABLISHED BASED ON THE FOURTH UNIVERSAL DEFINITIONS OF MYOCARDIAL INFARCTION. THE UPPER REFERENCE LIMIT (URL) OF TROPONIN, DEFINED THE 99TH PERCENTILE OF cTnI DISTRIBUTION IN A REFERENCE POPULATION, HAS BEEN CONFIRMED THE DECISION THRESHOLD FOR LA DIAGNOSIS. Performed By: #### C BC #### [facility] [address] [place] [address] Dr. Sushant Pradhan CARDIAC SONIA ADMITon 023 CK [Catalytic activity/Vol] 68 U/L Normal 39-308 [facility] Comment on above: Performed By: #### C MREP #### [facility] [address] [place] [address] Dr. Sushant Pradhan CK.MB [Mass/Vol] 1.23 ng/mL Normal <=3.60 [facility] Comment on above: Performed By: #### C MREP #### [facility] [address] [place] [address] Dr. Sushant Pradhan HSTROP 7.1 pg/mL Normal 4.0-76.1 [facility] Comment on above: Result Comment: CUT- OFF POINTS HAVE BEEN ESTABLISHED BASED ON THE FOURTH UNIVERSAL DEFINITIONS OF MYOCARDIAL INFARCTION. THE UPPER REFERENCE LIMIT (URL) OF TROPONIN, DEFINED THE 99TH PERCENTILE OF cTnI DISTRIBUTION IN A REFERENCE POPULATION, HAS BEEN CONFIRMED THE DECISION THRESHOLD FOR LA DIAGNOSIS. Performed By: #### C MREP #### [facility] [address] [place] [address] Dr. Sushant Pradhan DILAN 32 ng/mL Normal 16-96 [facility] Comment on above: Performed By: #### C MREP #### [facility] [address] [address] [address] Sushant Pradhan CBC AUTO DIFFon 06-18-2022 BASO # 0.0 103/ul Normal 0.0-0.1 [facility] Comment on above: Performed By: #### C BC #### [facility] [address] [address] [address] Sushant Pradhan Basophils/100 WBC (Bld) 0.5 % Normal 0.2-2.0 [facility] Comment on above: Performed By: #### C BC #### [facility] [address] [address] [address] Sushant Pradhan EO # 0.3 103/ul Normal 0.0-0.7 [facility] Comment on above: Performed By: #### C BC #### [facility] [address] [place] [address] Dr. Sushant Pradhan Eosinophils/100 WBC (Bld) 4.5 % Normal 0.9-7.0 [facility] Comment on above: Performed By: #### C BC #### [facility] [address] [address] [address] Sushant Pradhan Erythrocyte distribution width (RBC) [Ratio] 15.8 % Critically high 11.0-15.0 [facility] Comment on above: Performed By: #### C BC #### [facility] [address] [place] [address] Dr. Sushant Pradhan Hematocrit (Bld) [Volume fraction] 37.3 % Critically low 42.0-54.0 [facility] Comment on above: Performed By: #### C BC #### [facility] [address] [address] [address] Sushant Pradhan Hemoglobin (Bld) [Mass/Vol] 13.0 g/dL Critically low 14.0-18.0 [facility] Comment on above: Performed By: #### C BC #### [facility] [address] [address] [address] Sushant Pradhan IG # 0.02 10e3/ul Normal 0.00-0.03 [facility] Comment on above: Performed By: #### C BC #### [facility] [address] [address] [address] Sushant Pradhan IG % 0.3 % Normal 0.0-0.5 [facility] Comment on above: Performed By: #### C BC #### [facility] [address] [place] [address] Dr. Sushant Pradhan LYMPH # 0.8 103/ul Critically low 1.2-3.8 [facility] Comment on above: Performed By: #### C BC #### [facility] [address] [place] [address] Dr. Sushant Pradhan Lymphocytes/100 WBC (Bld) 13.9 % Critically low 20.5-60.0 [facility] Comment on above: Performed By: #### C BC #### [facility] [address] [place] [address] Dr. Sushant Pradhan MANUAL DIFF REQ NO Normal [facility] Comment on above: Performed By: #### C BC #### [facility] [address] [place] [address] Dr. Sushant Pradhan MCH (RBC) [Entitic mass] 33.0 pg Normal 25.9-34.0 [facility] Comment on above: Performed By: #### C BC #### [facility] [address] [place] [address] Dr. Sushant Pradhan MCHC (RBC) [Mass/Vol] 34.9 g/dL Normal 29.9-35.2 [facility] Comment on above: Performed By: #### C BC #### [facility] [address] [place] [address] Dr. Sushant Pradhan MCV (RBC) [Entitic vol] 94.7 fL Critically high 80.0-94.0 [facility] Comment on above: Performed By: #### C BC #### [facility] [address] [place] [address] Dr. Sushant Pradhan MONO # 0.7 103/ul Normal 0.3-0.8 [facility] Comment on above: Performed By: #### C BC #### [facility] [address] [address] [address] Sushant Pradhan Monocytes/100 WBC (Bld) 12.5 % Critically high 1.7-12.0 [facility] Comment on above: Performed By: #### C BC #### [facility] [address] [address] [address] Sushant Pradhan NEUT # 4.0 103/ul Normal 1.4-6.5 [facility] Comment on above: Performed By: #### C BC #### [facility] [address] [address] [address] Sushant Pradhan Neutrophils/100 WBC (Bld) 68.3 % Normal 43.0-75.0 [facility] Comment on above: Performed By: #### C BC #### [facility] [address] [place] [address] Dr. Sushant Pradhan Platelet mean volume (Bld) [Entitic vol] 9.1 fL Critically low 9.5-13.5 [facility] Comment on above: Performed By: #### C BC #### [facility] [address] [place] [address] Dr. Sushant Pradhan PLT 175 103/ul Normal 150-450 [facility] Comment on above: Performed By: #### C BC #### [facility] [address] [place] [address] Dr. Sushant Pradhan RBC 3.94 106/ul Critically low 4.70-6.10 [facility] Comment on above: Performed By: #### C BC #### [facility] [address] [place] [address] Dr. Sushant Pradhan WBC 5.8 103/ul Normal 4.0-11.0 [facility] Comment on above: Performed By: #### C BC #### [facility] [address] [place] [address] Dr. Sushant Pradhan PROF 14(COMP METB)on 023 Albumin [Mass/Vol] 2.9 g/dL Critically low 3.4-5.0 [facility] Comment on above: Performed By: #### C MREP #### [facility] [address] [address] [address] Sushant Pradhan Albumin/Globulin [Mass ratio] 0.8 {ratio} Normal [facility] Comment on above: Performed By: #### C MREP #### [facility] [address] [address] [address] Sushant Pradhan ALP [Catalytic activity/Vol] 133 U/L Critically high 46-116 [facility] Comment on above: Performed By: #### C MREP #### [facility] [address] [address] [address] Sushant Pradhan ALT [Catalytic activity/Vol] 15 U/L Critically low 16-63 [facility] Comment on above: Performed By: #### C MREP #### [facility] [address] [place] [address] Dr. Sushant Pradhan Anion gap [Moles/Vol] 16.5 mmol/L Normal [facility] Comment on above: Performed By: #### C MREP #### [facility] [address] [place] [address] Dr. Sushant Pradhan AST [Catalytic activity/Vol] 15 U/L Normal 15-37 [facility] Comment on above: Performed By: #### C MREP #### [facility] [address] [place] [address] Dr. Sushant Pradhan Bilirubin [Mass/Vol] 0.4 mg/dL Normal 0.2-1.0 [facility] Comment on above: Performed By: #### C MREP #### [facility] [address] [place] [address] Dr. Sushant Pradhan Calcium [Mass/Vol] 8.6 mg/dL Normal 8.5-10.1 [facility] Comment on above: Performed By: #### C MREP #### [facility] [address] [place] [address] Dr. Sushant Pradhan Chloride [Moles/Vol] 97 mmol/L Critically low 98-107 [facility] Comment on above: Performed By: #### C MREP #### [facility] [address] [address] [address] Sushant Pradhan CO2 [Moles/Vol] 22.3 mmol/L Normal 21.0-32.0 [facility] Comment on above: Performed By: #### C MREP #### [facility] [address] [address] [address] Sushant Pradhan Creatinine [Mass/Vol] 0.61 mg/dL Critically low 0.70-1.30 [facility] Comment on above: Performed By: #### C MREP #### [facility] [address] [address] [address] Sushant Pradhan EGFR-AF J[place] >60 Normal >=60 [facility] Comment on above: Performed By: #### C MREP #### [facility] [address] [place] [address] Dr. Sushant Pradhan EGFR-NON AF [place] >60 Normal >=60 [facility] Comment on above: Performed By: #### C MREP #### [facility] [address] [place] [address] Dr. Sushant Pradhan Globulin (S) [Mass/Vol] 3.8 g/dL Normal [facility] Comment on above: Performed By: #### C MREP #### [facility] [address] [place] [address] Dr. Sushant Pradhan Glucose [Mass/Vol] 79 mg/dL Normal 74-106 [facility] Comment on above: Performed By: #### C MREP #### [facility] [address] [address] [address] Sushant Pradhan Potassium [Moles/Vol] 3.8 mmol/L Normal 3.5-5.1 [facility] Comment on above: Performed By: #### C MREP #### [facility] [address] [place] [address] Dr. Sushant Pradhan Protein [Mass/Vol] 6.7 g/dL Normal 6.4-8.2 [facility] Comment on above: Performed By: #### C MREP #### [facility] [address] [place] [address] Dr. Sushant Pradhan Sodium [Moles/Vol] 132 mmol/L Critically low 136-145 [facility] Comment on above: Performed By: #### C MREP #### [facility] [address] [address] [address] Sushant Pradhan Urea nitrogen [Mass/Vol] 5.0 mg/dL Critically low 7.0-18.0 [facility] Comment on above: Performed By: #### C MREP #### [facility] [address] [address] [address] Sushant Pradhan Urea nitrogen/Creatinine [Mass ratio] 8.2 mg/mg Normal [facility] Comment on above: Performed By: #### C MREP #### [facility] [address] [address] [address] Sushant Pradhan XR CHEST 1 Von [...] JESSE RAMOS Date: 2022-06-18 10:42 Normal [facility] Basophils Auto (Bld) [#/Vol] Ordered By: Jackie Fraga on 06-17-2022 Basophils (Bld) [#/Vol] 0.0 10*3/uL 0.0-0.2 [facility] Basophils/100 WBC Auto (Bld) Ordered By: Jackie Fraga on 06-17-2022 Basophils/100 WBC (Bld) 0.7 % . [facility] Creatinine and Glomerular fi ltration rate.predicted panel (S/P/Bld)Ordered By: Jackie Fraga on 06-17-2022 Creatinine [Mass/Vol] 0.91 mg/dL 0.64-1.27 [facility] Eosinophils Auto (Bld) [#/Vo l]Ordered By: Jackie Fraga on 06-17-2022 Eosinophils (Bld) [#/Vol] 0.2 10*3/uL 0.0-0.45 [facility] Eosinophils/100 WBC Auto (Bl d)Ordered By: Jackie Fraga on 06-17-2022 Eosinophils/100 WBC (Bld) 3.5 % . [facility] Erythrocyte distribution wid th Auto (RBC) [Ratio]Ordered By: Jackie Fraga on 06-17-2022 Erythrocyte distribution width (RBC) [Ratio] 15.8 % 12.0-14.8 [facility] Estimated glomerular filtrat ion rate (GFR) non- AmericanOrdered By: Jackie Fraga on 06-17-2022 GFR/1.73 sq M.predicted among non-blacks MDRD (S/P/Bld) [Vol rate/Area] > 60 mL/Min [facility] Hematocrit Auto (Bld) [Volum e fraction]Ordered By: Jackie Fraga on 06-17-2022 Hematocrit (Bld) [Volume fraction] 41.9 % 38.8-50.0 [facility] Hemoglobin [Mass/volume] in BloodOrdered By: Jackie Fraga on 06-17-2022 Hemoglobin (Bld) [Mass/Vol] 13.8 g/dL 13.0-17.0 [facility] Leukocytes [#/volume] correc chris for nucleated erythrocytes in Blood by Automated counOrdered By: Jackie Fraga on 06-17-2022 WBC corrected for nucl RBC Auto (Bld) [#/Vol] 6.1 10*3/uL 4.1-10.5 [facility] Lymphocytes Auto (Bld) [#/Vo l]Ordered By: Jackie Fraga on 06-17-2022 Lymphocytes (Bld) [#/Vol] 1.0 10*3/uL 1.00-4.8 [facility] Lymphocytes/100 WBC Auto (Bl d)Ordered By: Jackie Fraga on 06-17-2022 Lymphocytes/100 WBC (Bld) 16.6 % . [facility] MCH Auto (RBC) [Entitic mass ]Ordered By: Jackie Fraga on 06-17-2022 MCH (RBC) [Entitic mass] 32.9 pg 27.5-35.2 [facility] MCHC Auto (RBC) [Mass/Vol]Or dered By: Jackie Fraga on 06-17-2022 MCHC (RBC) [Mass/Vol] 33.1 g/dL 32.5-35.6 [facility] MCV Auto (RBC) [Entitic vol] Ordered By: Jackie Fraga on 06-17-2022 MCV (RBC) [Entitic vol] 99.4 fL 83.5-101 [facility] Monocytes Auto (Bld) [#/Vol] Ordered By: Jakcie Fraga on 06-17-2022 Monocytes (Bld) [#/Vol] 0.8 10*3/uL 0.0-0.8 [facility] Monocytes/100 WBC Auto (Bld) Ordered By: Jackie Fraga on 06-17-2022 Monocytes/100 WBC (Bld) 13.3 % . [facility] Neutrophils Auto (Bld) [#/Vo l]Ordered By: Jackie Fraga on 06-17-2022 Neutrophils (Bld) [#/Vol] 4.0 10*3/uL 1.8-7.7 [facility] Neutrophils/100 WBC Auto (Bl d)Ordered By: Jackie Fraga on 06-17-2022 Neutrophils/100 WBC (Bld) 65.9 % . [facility] No Panel InformationOrdered By: Jackie Fraga on 06-17-2022 Estimated GFR () > 60 mL/Min [facility] Comment on above: GFR estimated refere nce range: According to KDOQI guidelines, <60 ml/min/1.73m2 is sufficient to diagnose a patient with chronic kidney disease. Pharmacy Creatinine Clearance (Chem 86.01 [facility] Nucleated erythrocytes [Pres ence] in Blood by Automated countOrdered By: Jackie Fraga on 06-17-2022 Nucleated RBC Auto Ql (Bld) 0.2 /100{WBC} 0-0.5 [facility] Platelet mean volume Auto (B ld) [Entitic vol]Ordered By: Jackie Fraga on 06-17-2022 Platelet mean volume (Bld) [Entitic vol] 7.7 fL 6.6-10.1 [facility] Platelets Auto (Bld) [#/Vol] Ordered By: Jackie Fraga on 06-17-2022 Platelets (Bld) [#/Vol] 185 10*3/uL 150-450 [facility] RBC Auto (Bld) [#/Vol]Ordere d By: Jackie Fraga on 06-17-2022 RBC (Bld) [#/Vol] 4.21 10*6/uL 3.90-5.60 [facility] Serum or plasma anion gap de terminationOrdered By: Jackie Fraga on 06-17-2022 Anion gap [Moles/Vol] 10.6 mmol/L 6.0-15.0 [facility] Serum or plasma calcium ledy urement (mass/volume)Ordered By: Jackie Fraga on 06-17-2022 Calcium [Mass/Vol] 8.6 mg/dL 8.2-10.2 [facility] Serum or plasma chloride carlyn surement (moles/volume)Ordered By: Jackie Fraga on 06-17-2022 Chloride [Moles/Vol] 99 mmol/L 95-114 [facility] Serum or plasma glucose ledy urement (mass/volume)Ordered By: Jackie Fraga on 06-17-2022 Glucose [Mass/Vol] 94 mg/dL 70-100 [facility] Comment on above: ADA recommended refe rence rangeRandom Glucose Reference Range is dependent on time and content of last meal. Glucose of more than 200 mg/dL in a nonstressed, ambulatory subject supports the diagnosis of Diabetes Mellitus. Serum or plasma potassium me asurement (moles/volume)Ordered By: Jackie Fraga on 06-17-2022 Potassium [Moles/Vol] 4.1 mmol/L 3.5-5.1 [facility] Serum or plasma sodium measu rement (moles/volume)Ordered By: Jackie Fraga on 06-17-2022 Sodium [Moles/Vol] 127 mmol/L 136-146 [facility] Serum or plasma total carbon dioxide measurement (moles/volume)Ordered By: Jackie Fraga on 06-17-2022 CO2 [Moles/Vol] 21.5 mmol/L 22.0-30.0 [facility] Serum or plasma urea nitroge n measurement (mass/volume)Ordered By: Jackie Fraga on 06-17-2022 Urea nitrogen [Mass/Vol] 10 mg/dL 9-23 [facility] TSH DL <= 0.005 mIU/L QnOrde red By: Jackei Fraga on 06-17-2022 TSH Qn 4.63 m[IU]/L 0.45-5.33 [facility] WBC Auto (Bld) [#/Vol]Ordere d By: Jackie Fraga on 06-17-2022 WBC (Bld) [#/Vol] 6.1 10*3/uL 4.1-10.5 [facility] Amphetamine Screen Ql (U)Ord ered By: Edward Hinds on 06-16-2022 Amphetamines Ql (U) Negative Negative [facility] Barbiturates [Presence] in U rineOrdered By: Edward Hinds on 06-16-2022 Barbiturates Ql (U) Negative Negative [facility] Benzodiazepines [Presence] i n UrineOrdered By: Edward Hinds on 06-16-2022 Benzodiazepines Ql (U) Negative Negative [facility] Cannabinoids [Presence] in U rine by Screen methodOrdered By: Edward Hinds on 06-16-2022 Cannabinoids Screen Ql (U) Positive Negative [facility] Comment on above: These are unconfirme d results and should not be used for legal purposes. Drug Cut-Off Concentration: AMPH 1000 ng/mL ZUNILDA 200 ng/mL SHIVANI 200 ng/mL COCM 300 ng/mL OP 300 ng/mL PCP 25 ng/mL THC 20 ng/mL Laboratory - Drug toxicology Ordered By: Edward Hinds on 02-03-2023 Opiates Ql (U) Negative Negative [facility] Phencyclidine Screen Ql (U)O rdered By: Edward Hinds on 06-16-2022 Phencyclidine Ql (U) Negative Negative [facility] Urine cocaine detectionOrder ed By: Edward Hinds on 06-16-2022 Cocaine Ql (U) Negative Negative [facility] Activated partial thrombopla stin time (aPTT) in platelet poor plasma by coagulation aOrdered By: Varghese Duval on 06-15-2022 aPTT Coag (PPP) [Time] 35.2 s 25.1-36.5 [facility] Basophils Auto (Bld) [#/Vol] Ordered By: Varghese Duval on 06-15-2022 Basophils (Bld) [#/Vol] 0.1 10*3/uL 0.0-0.2 [facility] Basophils/100 WBC Auto (Bld) Ordered By: Varghese Duval on 06-15-2022 Basophils/100 WBC (Bld) 1.0 % . [facility] Bilirubin Test strip Ql (U)O rdered By: Varghese Duval on 06-15-2022 Bilirubin Ql (U) Negative Negative [facility] Color Auto (U)Ordered By: Tanya Duval on 06-15-2022 Color (U) Yellow Yellow [facility] Creatinine and Glomerular fi ltration rate.predicted panel (S/P/Bld)Ordered By: Varghese Duval on 06-15-2022 Creatinine [Mass/Vol] 0.76 mg/dL 0.64-1.27 [facility] Eosinophils Auto (Bld) [#/Vo l]Ordered By: Varghese Duval on 06-15-2022 Eosinophils (Bld) [#/Vol] 0.3 10*3/uL 0.0-0.45 [facility] Eosinophils/100 WBC Auto (Bl d)Ordered By: Varghese Duval on 06-15-2022 Eosinophils/100 WBC (Bld) 4.9 % . [facility] Erythrocyte distribution wid th Auto (RBC) [Ratio]Ordered By: Varghese Duval on 06-15-2022 Erythrocyte distribution width (RBC) [Ratio] 15.9 % 12.0-14.8 [facility] Estimated glomerular filtrat ion rate (GFR) non- AmericanOrdered By: Varghese Duval on 06-15-2022 GFR/1.73 sq M.predicted among non-blacks MDRD (S/P/Bld) [Vol rate/Area] > 60 mL/Min [facility] Hematocrit Auto (Bld) [Volum e fraction]Ordered By: Varghese Duval on 06-15-2022 Hematocrit (Bld) [Volume fraction] 42.5 % 38.8-50.0 [facility] Hemoglobin [Mass/volume] in BloodOrdered By: Varghese Duval on 06-15-2022 Hemoglobin (Bld) [Mass/Vol] 14.3 g/dL 13.0-17.0 [facility] Ketones Auto test strip (U) [Mass/Vol]Ordered By: Varghese Duval on 06-15-2022 Ketones (U) [Mass/Vol] Negative Negative [facility] Laboratory - CoagulationOrde red By: Varghese Duval on 06-15-2022 PT Coag (PPP) [Time] 10.7 s 9.0-12.9 [facility] Leukocytes [#/volume] correc chris for nucleated erythrocytes in Blood by Automated counOrdered By: Varghese Duval on 06-15-2022 WBC corrected for nucl RBC Auto (Bld) [#/Vol] 5.4 10*3/uL 4.1-10.5 [facility] Lymphocytes Auto (Bld) [#/Vo l]Ordered By: Varghese Duval on 06-15-2022 Lymphocytes (Bld) [#/Vol] 1.0 10*3/uL 1.00-4.8 [facility] Lymphocytes/100 WBC Auto (Bl d)Ordered By: Varghese Duval on 06-15-2022 Lymphocytes/100 WBC (Bld) 19.3 % . [facility] MCH Auto (RBC) [Entitic mass ]Ordered By: Varghese Duval on 06-15-2022 MCH (RBC) [Entitic mass] 33.2 pg 27.5-35.2 [facility] MCHC Auto (RBC) [Mass/Vol]Or dered By: Varghese Duval on 06-15-2022 MCHC (RBC) [Mass/Vol] 33.5 g/dL 32.5-35.6 [facility] MCV Auto (RBC) [Entitic vol] Ordered By: Varghese Duval on 06-15-2022 MCV (RBC) [Entitic vol] 98.9 fL 83.5-101 [facility] Monocytes Auto (Bld) [#/Vol] Ordered By: Varghese Duval on 06-15-2022 Monocytes (Bld) [#/Vol] 0.5 10*3/uL 0.0-0.8 [facility] Monocytes/100 WBC Auto (Bld) Ordered By: Varghese Duval on 06-15-2022 Monocytes/100 WBC (Bld) 8.8 % . [facility] Neutrophils Auto (Bld) [#/Vo l]Ordered By: Varghese Duval on 06-15-2022 Neutrophils (Bld) [#/Vol] 3.6 10*3/uL 1.8-7.7 [facility] Neutrophils/100 WBC Auto (Bl d)Ordered By: Varghese Duval on 06-15-2022 Neutrophils/100 WBC (Bld) 66.0 % . [facility] Nitrite Test strip Ql (U)Ord ered By: Varghese Duval on 06-15-2022 Nitrite Ql (U) Negative Negative [facility] No Panel InformationOrdered By: Varghese Duval on 06-15-2022 Estimated GFR () > 60 mL/Min [facility] Comment on above: GFR estimated refere nce range: According to KDOQI guidelines, <60 ml/min/1.73m2 is sufficient to diagnose a patient with chronic kidney disease. Pharmacy Creatinine Clearance (Chem N/A [facility] Nucleated erythrocytes [Pres ence] in Blood by Automated countOrdered By: Varghese Duval on 06-15-2022 Nucleated RBC Auto Ql (Bld) 0.2 /100{WBC} 0-0.5 [facility] Platelet mean volume Auto (B ld) [Entitic vol]Ordered By: Varghese Duval on 06-15-2022 Platelet mean volume (Bld) [Entitic vol] 7.4 fL 6.6-10.1 [facility] Platelet poor plasma interna tional normalized ratio (INR) by coagulation assay (relatOrdered By: Varghese Duval on 06-15-2022 INR Coag (PPP) [Relative time] 0.9 {INR} [facility] Comment on above: INR Therapeutic Rang e [...] 06-15-2022 Platelets (Bld) [#/Vol] 212 10*3/uL 150-450 [facility] Protein Auto test strip (U) [Mass/Vol]Ordered By: Varghese Duval on 06-15-2022 Protein (U) [Mass/Vol] Negative Negative [facility] RBC Auto (Bld) [#/Vol]Ordere d By: Varghese Duval on 06-15-2022 RBC (Bld) [#/Vol] 4.30 10*6/uL 3.90-5.60 [facility] Serum or plasma anion gap de terminationOrdered By: Varghese Duval on 06-15-2022 Anion gap [Moles/Vol] 14.4 mmol/L 6.0-15.0 [facility] Serum or plasma calcium ledy urement (mass/volume)Ordered By: Varghese Duval on 06-15-2022 Calcium [Mass/Vol] 8.5 mg/dL 8.2-10.2 [facility] Serum or plasma chloride carlyn surement (moles/volume)Ordered By: Varghese Duval on 06-15-2022 Chloride [Moles/Vol] 98 mmol/L 95-114 [facility] Serum or plasma glucose ledy urement (mass/volume)Ordered By: Varghese Duval on 06-15-2022 Glucose [Mass/Vol] 74 mg/dL 70-100 [facility] Comment on above: ADA recommended refe rence rangeRandom Glucose Reference Range is dependent on time and content of last meal. Glucose of more than 200 mg/dL in a nonstressed, ambulatory subject supports the diagnosis of Diabetes Mellitus. Serum or plasma potassium me asurement (moles/volume)Ordered By: Varghese Duval on 06-15-2022 Potassium [Moles/Vol] 4.2 mmol/L 3.5-5.1 [facility] Serum or plasma sodium measu rement (moles/volume)Ordered By: Varghese Duval on 06-15-2022 Sodium [Moles/Vol] 129 mmol/L 136-146 [facility] Serum or plasma total carbon dioxide measurement (moles/volume)Ordered By: Varghese Duval on 06-15-2022 CO2 [Moles/Vol] 20.8 mmol/L 22.0-30.0 [facility] Serum or plasma urea nitroge n measurement (mass/volume)Ordered By: Varghese Duval on 06-15-2022 Urea nitrogen [Mass/Vol] 4 mg/dL 9-23 [facility] Specific gravity Auto test s trip (U) [Rel density]Ordered By: Varghese Duval on 06-15-2022 Specific gravity (U) [Rel density] 1.008 1.001-1.030 [facility] Urine clarity by refractomet ry automatedOrdered By: Varghese Duval on 06-15-2022 Clarity Refractometry automated (U) Clear Clear [facility] Urine glucose measurement by automated test strip (mass/volume)Ordered By: Varghese Duval on 06-15-2022 Glucose Auto test strip (U) [Mass/Vol] Normal mg/dL Normal [facility] Urine hemoglobin detection b y automated test stripOrdered By: Varghese Duval on 06-15-2022 Hemoglobin Auto test strip Ql (U) Negative Negative [facility] Urine leukocyte esterase det ection by automated test stripOrdered By: Varghese Duval on 06-15-2022 Leukocyte esterase Auto test strip Ql (U) Negative Negative [facility] Urobilinogen Auto test strip (U) [Mass/Vol]Ordered By: Varghese Duval on 06-15-2022 Urobilinogen (U) [Mass/Vol] Normal mg/dL Normal [facility] WBC Auto (Bld) [#/Vol]Ordere d By: Varghese Duval on 06-15-2022 WBC (Bld) [#/Vol] 5.4 10*3/uL 4.1-10.5 [facility] pH Auto test strip (U)Ordere d By: Varghese Morankerry on 06-15-2022 pH (U) 5.5 [pH] 5.0-9.[address] [facility] [address] chest w conon 06-01-2022 CT chest w con [facility] [employer] Other CT chest w con [facility] [employer] Other CT chest w con [address] [place] [address] [employer] [place] [address] No rt [employer] Other CT chest w con CT Scan Report [employer] Other CT chest w con Signed [employer] Other CT chest w con Patient: Gustavo Echols N MR#: [id number] [employer] Other CT chest w con [address] [employer] [address] chest w con : 1965 Acct:[id number] [employer] Other CT chest w con Age/Sex: 57 / M ADM Date: 06/01/[address] [employer] [address] chest w con Loc: CT Room: Type: [facility] [employer] Other CT chest w con Attending Dr: Rachid Chase MD [employer] Other CT chest w con Copies to: Rachid whitlock MD [employer] Other CT chest w con Ordering Provider: Narinder Chase MD [employer] Other CT chest w con Date of Service: 06/01/[address] [facility] [address] chest w con CT/CT chest w con: C34.[address] [facility] [address] chest w con CT chest withcontrast [employer] Other CT chest w con TECHNIQUE: Axial adore ging with 2-D reconstruction. 83 cc of [id number] CT exam was performed [employer] Other CT chest w con using one or more th e following dose reduction techniques: Automated exposure control, adjustment of [employer] Other CT chest w con the MA and/or Kv according to patient size, or use of the iterative reconstruction technique. [employer] Other CT chest w con History: History of lung cancer. Chest tightness. Shortness of breath. [employer] Other CT chest w con COMPARISON: 04/10/[address] [employer] [facility] [address] chest w con No thyroid abnormali ty [id number] present on the left. [employer] Other CT chest w con Central airway is patent. [employer] Other CT chest w con No esophageal abnormality identified. [employer] Other CT chest w con Heart is not enlarge d. No pericardial effusion is seen. [employer] Other CT chest w con Nonenlarged mediasti nal lymph nodes identified. No hilar mass or adenopathy is seen. [employer] Other CT chest w con No thoracic aortic aneurysm is seen. [employer] Other CT chest w con No lung nodules identified. [employer] Other CT chest w con No infiltrate or congestion identified. Developing medial right middle lobe atelectasis. Large [employer] Other CT chest w con right pleural effusi on redemonstrated. This is similar to prior examination. No pneumothorax seen. [employer] Other CT chest w con Emphysematous change s redemonstrated. [employer] Other CT chest w con No chest wall abnormality seen. The bony structures are intact. [employer] Other CT chest w con Images of the upper abdomen are noncontributory. [employer] Other CT chest w con C T/CT chest w con [employer] Other CT chest w con IMPRESSION: Developi ng medial right middle lobe atelectasis. Continued large right pleural [employer] Other CT chest w con effusion. Emphysema. [employer] Other CT chest w con Impression dictated by: Franklin Gomes M.D.06/01/2022 3:[address] [facility] [address] chest w con Dictation Location: [place] [address] [employer] [facility] [address] chest w con Transcribed By: PWS 06/01/[address] [facility] [address] chest w con Dictated By: Franklin Gomes DO 06/01/[address] [facility] [address] chest w con Signed By: ApnaPaisa Other CT chest w con 06/01/22 1520 [employer] Other Creatinine (Bld) [Mass/Vol]O rdered By: Rachid Chase on 06-01-2022 Creatinine [Mass/Vol] 0.8 mg/dL 0.6-1.3 [facility] Comment on above: ER/ESD physician is notified/shown all ISTAT results.Critical values may be confirmed by laboratory testing ifdeemed necessary by ER attending doctor. No Panel InformationOrdered By: Rachid Chase on 06-01-2022 POC Estimated GFR > 60 [facility] Comment on above: GFR estimated refere nce range: According to KDOQI guidelines, <60 ml/min/1.73m2 is sufficient to diagnose a patient with chronic kidney disease. POC Estimated GFR Non- Amer > 60 [facility] Activated partial thrombopla stin time (aPTT) in platelet poor plasma by coagulation aOrdered By: Estela Varma on 04-18-2022 aPTT Coag (PPP) [Time] 44.4 s 25.1-36.5 [facility] - CoagulationOrde red By: Estela Varma on 04-18-2022 PT Coag (PPP) [Time] 11.2 s 9.0-12.9 [facility] Platelet poor plasma interna tional normalized ratio (INR) by coagulation assay (relatOrdered By: Estela Varma on 04-18-2022 INR Coag (PPP) [Relative time] 1.0 {INR} [facility] Comment on above: INR Therapeutic Rang e [...] 04-18-2022 Platelets (Bld) [#/Vol] 158 10*3/uL 150-450 [facility] Bacterial blood cultureOrder ed By: Tez Irene on 04-15-2022 Bacteria identified Cx Nom (Bld) NO GROWTH 5 DAYS [facility] Bacteria identified Anaer cx Nom (Unsp spec)Ordered By: Tez Irene on 04-14-2022 Anaerobic microbial culture No Anaerobes Isolated 3 Days [facility] ABO and Rh group post transf usion reaction Nom (Bld)Ordered By: Tez Irene on 04-12-2022 Microscopic observation Gram stain Nom (Unsp spec) [facility] Aerobic cultureOrdered By: Krystina Irene on 04-11-2022 Bacteria identified Aer cx Nom (Unsp spec) No Growth 2 Days [facility] Anaerobic cultureOrdered By: Tez Irene on 04-11-2022 Bacteria identified Anaer cx Nom (Unsp spec) No Anaerobes Isolated 3 Days [facility] Body fluid differential cell countOrdered By: Tez Irene on 04-11-2022 Differential panel (Body fld) 4 % [facility] Comment on above: The reference interv al and other method performance specifications have not been established for this body fluid. The test result must be integrated into the clinical context for interpretation. Differential panel (Body fld) 0 % [facility] Comment on above: The reference interv al and other method performance specifications have not been established for this body fluid. The test result must be integrated into the clinical context for interpretation. Body fluid protein measureme nt (mass/volume)Ordered By: Tez Irene on 04-11-2022 Protein (Body fld) [Mass/Vol] 3.8 g/dL [facility] Cells Counted Total [#] in B sarah fluidOrdered By: Tez Irene on 04-11-2022 Cells Counted Total (Body fld) [#] 1147 /uL [facility] Comment on above: The reference interv al and other method performance specifications have not been established for this body fluid. The test result must be integrated into the clinical context for interpretation. Color of Spun Body fluidOrde red By: Tez Irene on 04-11-2022 Color (Spun body fld) Straw [facility] Comment on above: The reference interv al and other method performance specifications have not been established for this body fluid. The test result must be integrated into the clinical context for interpretation. Determination of appearance of body fluidOrdered By: Tez Irene on 04-11-2022 Appearance (Body fld) Hazy [facility] Comment on above: The reference interv al and other method performance specifications have not been established for this body fluid. The test result must be integrated into the clinical context for interpretation. Erythrocytes [#/volume] in B sarah fluid by Automated countOrdered By: Tez Irene on 04-11-2022 RBC Auto (Body fld) [#/Vol] 65616 mm^3 [facility] Comment on above: The reference interv al and other method performance specifications have not been established for this body fluid. The test result must be integrated into the clinical context for interpretation. Evaluation of color of body fluidOrdered By: Tez Irene on 04-11-2022 Color (Body fld) Straw [facility] Comment on above: The reference interv al and other method performance specifications have not been established for this body fluid. The test result must be integrated into the clinical context for interpretation. Gram stain for investigation of transfusion reactionOrdered By: Tez Irene on 04-11-2022 Microscopic observation Gram stain Nom (Unsp spec) [facility] Lactate dehydrogenase measur ement (enzymatic activity/volume)Ordered By: Tez Irene on 04-11-2022 LDH (Unsp spec) [Catalytic activity/Vol] 88 [IU]/mL [facility] Comment on above: No reference range e stablished LDH (Unsp spec) [Catalytic activity/Vol] 100 U/L 45-190 [facility] Manual body fluid eosinophil s/100 leukocytesOrdered By: Tez Irene on 04-11-2022 Eosinophils/100 WBC Manual cnt (Body fld) 0 /100{WBC} 0-3 [facility] Manual body fluid lymphocyte s/100 leukocytesOrdered By: Tez Irene on 04-11-2022 Lymphocytes/100 WBC Manual cnt (Body fld) 61 % [facility] Comment on above: The reference interv al and other method performance specifications have not been established for this body fluid. The test result must be integrated into the clinical context for interpretation. Neutrophils/100 WBC Manual c nt (Body fld)Ordered By: Tez Irene on 04-11-2022 Neutrophils/100 WBC (Body fld) 35 % [facility] Comment on above: The reference interv al and other method performance specifications have not been established for this body fluid. The test result must be integrated into the clinical context for interpretation. Troponin I.cardiac [Mass/vol ume] in Serum or Plasma by High sensitivity methodOrdered By: Tez Irene on 04-11-2022 Troponin I.cardiac High sensitivity method [Mass/Vol] 5 pg/mL 0-20 [facility] Albumin [Mass/volume] in Ser um or PlasmaOrdered By: Kali Longo on 04-10-2022 Albumin [Mass/Vol] 3.3 g/dL 3.2-5.5 [facility] Albumin [Mass/volume] in Ser um or PlasmaOrdered By: Estela Varma on 04-10-2022 Albumin [Mass/Vol] 3.4 g/dL 3.2-5.5 [facility] Bacterial blood cultureOrder ed By: Tez Irene on 04-10-2022 Bacteria identified Cx Nom (Bld) NO GROWTH 5 DAYS [facility] Basophils Auto (Bld) [#/Vol] Ordered By: Kali Longo on 04-10-2022 Basophils (Bld) [#/Vol] 0.1 10*3/uL 0.0-0.2 [facility] Basophils Auto (Bld) [#/Vol] Ordered By: Estela Varma on 04-10-2022 Basophils (Bld) [#/Vol] 0.1 10*3/uL 0.0-0.2 [facility] Basophils/100 WBC Auto (Bld) Ordered By: Kali Longo on 04-10-2022 Basophils/100 WBC (Bld) 1.0 % . [facility] Basophils/100 WBC Auto (Bld) Ordered By: Estela Varma on 04-10-2022 Basophils/100 WBC (Bld) 0.9 % . [facility] Creatinine and Glomerular fi ltration rate.predicted panel (S/P/Bld)Ordered By: Kali Longo on 04-10-2022 Creatinine [Mass/Vol] 0.86 mg/dL 0.64-1.27 [facility] Creatinine and Glomerular fi ltration rate.predicted panel (S/P/Bld)Ordered By: Estela Varma on 04-10-2022 Creatinine [Mass/Vol] 0.92 mg/dL 0.64-1.27 [facility] Eosinophils Auto (Bld) [#/Vo l]Ordered By: Kali Longo on 04-10-2022 Eosinophils (Bld) [#/Vol] 0.1 10*3/uL 0.0-0.45 [facility] Eosinophils Auto (Bld) [#/Vo l]Ordered By: Estela Varam on 04-10-2022 Eosinophils (Bld) [#/Vol] 0.2 10*3/uL 0.0-0.45 [facility] Eosinophils/100 WBC Auto (Bl d)Ordered By: Kali Longo on 04-10-2022 Eosinophils/100 WBC (Bld) 1.5 % . [facility] Eosinophils/100 WBC Auto (Bl d)Ordered By: Estela Varma on 04-10-2022 Eosinophils/100 WBC (Bld) 2.9 % . [facility] Erythrocyte distribution wid th Auto (RBC) [Ratio]Ordered By: Kali Longo on 04-10-2022 Erythrocyte distribution width (RBC) [Ratio] 14.1 % 12.0-14.8 [facility] Erythrocyte distribution wid th Auto (RBC) [Ratio]Ordered By: Estela Varma on 04-10-2022 Erythrocyte distribution width (RBC) [Ratio] 14.6 % 12.0-14.8 [facility] Estimated glomerular filtrat ion rate (GFR) non- AmericanOrdered By: Kali Longo on 04-10-2022 GFR/1.73 sq M.predicted among non-blacks MDRD (S/P/Bld) [Vol rate/Area] > 60 mL/Min [facility] Estimated glomerular filtrat ion rate (GFR) non- AmericanOrdered By: Estela Varma on 04-10-2022 GFR/1.73 sq M.predicted among non-blacks MDRD (S/P/Bld) [Vol rate/Area] > 60 mL/Min [facility] Globulin Calc (S) [Mass/Vol] Ordered By: Kali Longo on 04-10-2022 Globulin (S) [Mass/Vol] 3.1 g/dL [facility] Globulin Calc (S) [Mass/Vol] Ordered By: Estela Varma on 04-10-2022 Globulin (S) [Mass/Vol] 3.1 g/dL [facility] Hematocrit Auto (Bld) [Volum e fraction]Ordered By: Kali Longo on 04-10-2022 Hematocrit (Bld) [Volume fraction] 44.7 % 38.8-50.0 [facility] Hematocrit Auto (Bld) [Volum e fraction]Ordered By: Estela Varma on 04-10-2022 Hematocrit (Bld) [Volume fraction] 46.1 % 38.8-50.0 [facility] Hemoglobin [Mass/volume] in BloodOrdered By: Kali Longo on 04-10-2022 Hemoglobin (Bld) [Mass/Vol] 15.2 g/dL 13.0-17.0 [facility] Hemoglobin [Mass/volume] in BloodOrdered By: Estela Varma on 04-10-2022 Hemoglobin (Bld) [Mass/Vol] 15.5 g/dL 13.0-17.0 [facility] - Chemistry and C hemistry - challengeOrdered By: Kali Longo on 04-10-2022 Natriuretic peptide B (Bld) [Mass/Vol] 19.0 pg/mL 5-100 [facility] - Hematology and Cell countsOrdered By: Kali Longo on 04-10-2022 Nucleated RBC/100 WBC (Bld) [Ratio] 0.1 % 0-0.5 [facility] - Hematology and Cell countsOrdered By: Estela Varma on 04-10-2022 Nucleated RBC/100 WBC (Bld) [Ratio] 0.1 % 0-0.5 [facility] Leukocytes [#/volume] in Blo od by Automated countOrdered By: Kali Longo on 04-10-2022 WBC (Bld) [#/Vol] 6.1 10*3/uL 4.5-11.0 [facility] Leukocytes [#/volume] in Blo od by Automated countOrdered By: Estela Varma on 04-10-2022 WBC (Bld) [#/Vol] 6.3 10*3/uL 4.5-11.0 [facility] Lymphocytes Auto (Bld) [#/Vo l]Ordered By: Kali Longo on 04-10-2022 Lymphocytes (Bld) [#/Vol] 0.9 10*3/uL 1.00-4.8 [facility] Lymphocytes Auto (Bld) [#/Vo l]Ordered By: Estela Varma on 04-10-2022 Lymphocytes (Bld) [#/Vol] 1.0 10*3/uL 1.00-4.8 [facility] Lymphocytes/100 WBC Auto (Bl d)Ordered By: Kali Longo on 04-10-2022 Lymphocytes/100 WBC (Bld) 14.2 % . [facility] Lymphocytes/100 WBC Auto (Bl d)Ordered By: Estela Varma on 04-10-2022 Lymphocytes/100 WBC (Bld) 16.2 % . [facility] MCH Auto (RBC) [Entitic mass ]Ordered By: Kali Longo on 04-10-2022 MCH (RBC) [Entitic mass] 32.9 pg 27.5-35.2 [facility] MCH Auto (RBC) [Entitic mass ]Ordered By: Estela Varma on 04-10-2022 MCH (RBC) [Entitic mass] 32.6 pg 27.5-35.2 [facility] MCHC Auto (RBC) [Mass/Vol]Or dered By: Kali Longo on 04-10-2022 MCHC (RBC) [Mass/Vol] 33.9 g/dL 32.5-35.6 [facility] MCHC Auto (RBC) [Mass/Vol]Or dered By: Estela Varma on 04-10-2022 MCHC (RBC) [Mass/Vol] 33.6 g/dL 32.5-35.6 [facility] MCV Auto (RBC) [Entitic vol] Ordered By: Kali Longo on 04-10-2022 MCV (RBC) [Entitic vol] 96.9 fL 83.5-101 [facility] MCV Auto (RBC) [Entitic vol] Ordered By: Estela Varma on 04-10-2022 MCV (RBC) [Entitic vol] 97.2 fL 83.5-101 [facility] Monocytes Auto (Bld) [#/Vol] Ordered By: Kali Longo on 04-10-2022 Monocytes (Bld) [#/Vol] 0.6 10*3/uL 0.0-0.8 [facility] Monocytes Auto (Bld) [#/Vol] Ordered By: Estela Varma on 04-10-2022 Monocytes (Bld) [#/Vol] 0.5 10*3/uL 0.0-0.8 [facility] Monocytes/100 WBC Auto (Bld) Ordered By: Kali Longo on 04-10-2022 Monocytes/100 WBC (Bld) 9.9 % . [facility] Monocytes/100 WBC Auto (Bld) Ordered By: Estela Varma on 04-10-2022 Monocytes/100 WBC (Bld) 8.6 % . [facility] Neutrophils Auto (Bld) [#/Vo l]Ordered By: Kali Longo on 04-10-2022 Neutrophils (Bld) [#/Vol] 4.5 10*3/uL 1.8-7.7 [facility] Neutrophils Auto (Bld) [#/Vo l]Ordered By: Estela Varma on 04-10-2022 Neutrophils (Bld) [#/Vol] 4.5 10*3/uL 1.8-7.7 [facility] Neutrophils/100 WBC Auto (Bl d)Ordered By: Kali Longo on 04-10-2022 Neutrophils/100 WBC (Bld) 73.4 % . [facility] Neutrophils/100 WBC Auto (Bl d)Ordered By: Estela Varma on 04-10-2022 Neutrophils/100 WBC (Bld) 71.4 % . [facility] No Panel InformationOrdered By: Kali Longo on 04-10-2022 D-Dimer Quantitative (PE/DVT) 529 ng/mL 0-243 [facility] Comment on above: The reference range for [...] conditions. Estimated GFR () > 60 mL/Min [facility] Comment on above: GFR estimated refere nce range: According to KDOQI guidelines, <60 ml/min/1.73m2 is sufficient to diagnose a patient with chronic kidney disease. Pharmacy Creatinine Clearance (Chem 92.25 [facility] No Panel InformationOrdered By: Estela Varma on 04-10-2022 Estimated GFR () > 60 mL/Min [facility] Comment on above: GFR estimated refere nce range: According to KDOQI guidelines, <60 ml/min/1.73m2 is sufficient to diagnose a patient with chronic kidney disease. Pharmacy Creatinine Clearance (Chem 89.21 [facility] Platelet mean volume Auto (B ld) [Entitic vol]Ordered By: Kali Longo on 04-10-2022 Platelet mean volume (Bld) [Entitic vol] 7.0 fL 6.6-10.1 [facility] Platelet mean volume Auto (B ld) [Entitic vol]Ordered By: Estela Varma on 04-10-2022 Platelet mean volume (Bld) [Entitic vol] 7.4 fL 6.6-10.1 [facility] Platelets Auto (Bld) [#/Vol] Ordered By: Kali Longo on 04-10-2022 Platelets (Bld) [#/Vol] 242 10*3/uL 150-450 [facility] Platelets Auto (Bld) [#/Vol] Ordered By: Estela Varma on 04-10-2022 Platelets (Bld) [#/Vol] 239 10*3/uL 150-450 [facility] Protein [Mass/volume] in Ser um or PlasmaOrdered By: Kali Longo on 04-10-2022 Protein [Mass/Vol] 6.4 g/dL 6.1-7.9 [facility] Protein [Mass/volume] in Ser um or PlasmaOrdered By: Estela Varma on 04-10-2022 Protein [Mass/Vol] 6.5 g/dL 6.1-7.9 [facility] RBC Auto (Bld) [#/Vol]Ordere d By: Kali Longo on 04-10-2022 RBC (Bld) [#/Vol] 4.61 10*6/uL 3.90-5.60 [facility] RBC Auto (Bld) [#/Vol]Ordere d By: Estela Vamra on 04-10-2022 RBC (Bld) [#/Vol] 4.75 10*6/uL 3.90-5.60 [facility] Serum or plasma alanine glynn otransferase measurement without P-5'-P (enzymatic activiOrdered By: Kali Longo on 04-10-2022 ALT No additional P-5'-P [Catalytic activity/Vol] 13 U/L [facility] Serum or plasma alanine glynn otransferase measurement without P-5'-P (enzymatic activiOrdered By: Estela Varma on 04-10-2022 ALT No additional P-5'-P [Catalytic activity/Vol] 14 U/L [facility] Serum or plasma albumin/glob ulin mass ratioOrdered By: Kali Longo on 04-10-2022 Albumin/Globulin [Mass ratio] 1.1 {ratio} [facility] Serum or plasma albumin/glob ulin mass ratioOrdered By: Estela Varma on 04-10-2022 Albumin/Globulin [Mass ratio] 1.1 {ratio} [facility] Serum or plasma alkaline abhijit sphatase measurement (enzymatic activity/volume)Ordered By: Kali Longo on 04-10-2022 ALP [Catalytic activity/Vol] 127 U/L [facility] Serum or plasma alkaline abhijit sphatase measurement (enzymatic activity/volume)Ordered By: Estela Varma on 04-10-2022 ALP [Catalytic activity/Vol] 128 U/L [facility] Serum or plasma anion gap de terminationOrdered By: Kali Longo on 04-10-2022 Anion gap [Moles/Vol] 15.8 mmol/L 6.0-15.0 [facility] Serum or plasma anion gap de terminationOrdered By: Estela Varma on 04-10-2022 Anion gap [Moles/Vol] 17.3 mmol/L 6.0-15.0 [facility] Serum or plasma aspartate am inotransferase measurement (enzymatic activity/volume)Ordered By: Kali Longo on 04-10-2022 AST [Catalytic activity/Vol] 19 U/L [facility] Serum or plasma aspartate am inotransferase measurement (enzymatic activity/volume)Ordered By: Estela Varma on 04-10-2022 AST [Catalytic activity/Vol] 19 U/L [facility] Serum or plasma calcium ledy urement (mass/volume)Ordered By: Kali Longo on 04-10-2022 Calcium [Mass/Vol] 8.5 mg/dL 8.2-10.2 [facility] Serum or plasma calcium ledy urement (mass/volume)Ordered By: Estela Varma on 04-10-2022 Calcium [Mass/Vol] 8.5 mg/dL 8.2-10.2 [facility] Serum or plasma carcinoembry onic antigen measurement (mass/volume)Ordered By: Estela Varma on 04-10-2022 Carcinoembryonic Ag [Mass/Vol] 10.5 ng/mL 0.0-3.0 [facility] Serum or plasma chloride carlyn surement (moles/volume)Ordered By: Kali Longo on 04-10-2022 Chloride [Moles/Vol] 95 mmol/L 95-114 [facility] Serum or plasma chloride carlyn surement (moles/volume)Ordered By: Estela Varma on 04-10-2022 Chloride [Moles/Vol] 98 mmol/L 95-114 [facility] Serum or plasma glucose ledy urement (mass/volume)Ordered By: Kali Longo on 04-10-2022 Glucose [Mass/Vol] 75 mg/dL 70-100 [facility] Comment on above: ADA recommended refe rence rangeRandom Glucose Reference Range is dependent on time and content of last meal. Glucose of more than 200 mg/dL in a nonstressed, ambulatory subject supports the diagnosis of Diabetes Mellitus. Serum or plasma glucose ledy urement (mass/volume)Ordered By: Estela Varma on 04-10-2022 Glucose [Mass/Vol] 73 mg/dL 70-100 [facility] Comment on above: ADA recommended refe rence rangeRandom Glucose Reference Range is dependent on time and content of last meal. Glucose of more than 200 mg/dL in a nonstressed, ambulatory subject supports the diagnosis of Diabetes Mellitus. Serum or plasma potassium me asurement (moles/volume)Ordered By: Kali Longo on 04-10-2022 Potassium [Moles/Vol] 4.2 mmol/L 3.5-5.1 [facility] Serum or plasma potassium me asurement (moles/volume)Ordered By: Estela Varma on 04-10-2022 Potassium [Moles/Vol] 4.0 mmol/L 3.5-5.1 [facility] Serum or plasma sodium measu rement (moles/volume)Ordered By: Kali Longo on 04-10-2022 Sodium [Moles/Vol] 130 mmol/L 136-146 [facility] Serum or plasma sodium measu rement (moles/volume)Ordered By: Estela Varma on 04-10-2022 Sodium [Moles/Vol] 131 mmol/L 136-146 [facility] Serum or plasma total biliru bin measurement (mass/volume)Ordered By: Kali Longo on 04-10-2022 Bilirubin [Mass/Vol] 0.6 mg/dL 0.3-1.2 [facility] Serum or plasma total biliru bin measurement (mass/volume)Ordered By: Estela Varma on 04-10-2022 Bilirubin [Mass/Vol] 0.7 mg/dL 0.3-1.2 [facility] Serum or plasma total carbon dioxide measurement (moles/volume)Ordered By: Kali Longo on 04-10-2022 CO2 [Moles/Vol] 23.4 mmol/L 22.0-30.0 [facility] Serum or plasma total carbon dioxide measurement (moles/volume)Ordered By: Estela Varma on 04-10-2022 CO2 [Moles/Vol] 19.7 mmol/L 22.0-30.0 [facility] Serum or plasma urea nitroge n measurement (mass/volume)Ordered By: Kali Longo on 04-10-2022 Urea nitrogen [Mass/Vol] 7 mg/dL 02-03 [facility] Serum or plasma urea nitroge n measurement (mass/volume)Ordered By: Estela Varma on 04-10-2022 Urea nitrogen [Mass/Vol] 7 mg/dL 02-03 [facility] TSH DL <= 0.005 mIU/L QnOrde red By: Estela Varma on 04-10-2022 TSH Qn 2.57 m[IU]/L 0.45-5.33 [facility] Troponin I.cardiac [Mass/vol ume] in Serum or Plasma by High sensitivity methodOrdered By: Kali Longo on 04-10-2022 Troponin I.cardiac High sensitivity method [Mass/Vol] 5 pg/mL 0 [facility] Creatinine and Glomerular fi ltration rate.predicted panel (S/P/Bld)Ordered By: Estela Varma on 01-03-2022 Creatinine [Mass/Vol] 0.69 mg/dL 0.64-1.27 [facility] Estimated glomerular filtrat ion rate (GFR) non- AmericanOrdered By: Estela Varma on 01-03-2022 GFR/1.73 sq M.predicted among non-blacks MDRD (S/P/Bld) [Vol rate/Area] > 60 mL/Min [facility] No Panel InformationOrdered By: Estela Varma on 01-03-2022 Estimated GFR () > 60 mL/Min [facility] Comment on above: GFR estimated refere nce range: According to KDOQI guidelines, <60 ml/min/1.73m2 is sufficient to diagnose a patient with chronic kidney disease. Pharmacy Creatinine Clearance (Chem 122.86 [facility] Serum or plasma urea nitroge n measurement (mass/volume)Ordered By: Estela Varma on 01-03-2022 Urea nitrogen [Mass/Vol] 3 mg/dL 02-03 [facility] Office Visit (Cardiology)on 11-29-2021 Follow-up visit Diagnoses/Problems Assessed Lung cancer (162.9) (C34.90) Chest pain (786.50) (R07.9) Former smoker (V15.82) (Z87.891) quit 2020 1ppd Body mass index (BMI) of 20.0 to 20.9 in adult (V85.1) (Z68.20) COPD (chronic obstructive pulmonary disease) (496) (J44.9) Orders Health Maintenance Depression Follow-up Visit Outpatient Follow-up Status: Complete Done: [id number] SocHx: Former smoker Tobacco Use Screening; Status:Complete; Done: [id number] Patient Instructions By signing my name below, [...] Complaint Follow up Heart Cath results. 56-year-old Afro-[place]ir[place] gentleman returns with chief complaints of chest [...] catheterization performed this year Recommendations: We did patient financial counselor him on seeking further assistance in regards to his depression, increasing protein intake given his weight loss and seeking out further either ENT or pulmonary evaluation for his swallowing difficulty. We will follow-up on as-needed basis Surgical History Problems History of Arm surgery History of Complete colonoscopy Managed By: Eris HANEY, Nilesh 2015 History of Vasectomy History of Venous access [...] negative for complaint. Vitals Vital Signs Recorded: [id number] 09:05AM Heart Rate96, R Radial [id number], RUE, Sitting [id number], RUE, Sitting Blood Pressure Cuff SizeAdult Height6 ft Ykkbyy470 lb 8 oz BMI Wetdmgoynk62.28 kg/m2 BSA Calculated1.88 Tobacco Useb) No (more content not included)... Normal [facility] CARDIAC SONIA 3-6on 2 CK [Catalytic activity/Vol] 55 U/L Normal 39-308 [facility] Comment on above: Performed By: #### C MREP #### [facility] [address] [place] [address] Dr. Sushant Pradhan CK.MB [Mass/Vol] 1.25 ng/mL Normal <=3.60 [facility] Comment on above: Performed By: #### C MREP #### [facility] [address] [place] [address] Dr. Sushant Pradhan HSTROP 4.5 pg/mL Normal 4.0-76.1 [facility] Comment on above: Result Comment: CUT- OFF POINTS HAVE BEEN ESTABLISHED BASED ON THE FOURTH UNIVERSAL DEFINITIONS OF MYOCARDIAL INFARCTION. THE UPPER REFERENCE LIMIT (URL) OF TROPONIN, DEFINED THE 99TH PERCENTILE OF cTnI DISTRIBUTION IN A REFERENCE POPULATION, HAS BEEN CONFIRMED THE DECISION THRESHOLD FOR LA DIAGNOSIS. Performed By: #### C MREP #### [facility] [address] [place] [address] Dr. Sushant Pradhan CBC AUTO DIFFon 11-24-2021 BASO # 0.0 103/ul Normal 0.0-0.1 [facility] Comment on above: Performed By: #### C BC #### [facility] [address] [place] [address] Dr. Sushant Pradhan Basophils/100 WBC (Bld) 0.2 % Normal 0.2-2.0 [facility] Comment on above: Performed By: #### C BC #### [facility] [address] [place] [address] Dr. Sushant Pradhan EO # 0.0 103/ul Normal 0.0-0.7 [facility] Comment on above: Performed By: #### C BC #### [facility] [address] [place] [address] Dr. Sushant Pradhan Eosinophils/100 WBC (Bld) 0.0 % Critically low 0.9-7.0 [facility] Comment on above: Performed By: #### C BC #### [facility] [address] [place] [address] Dr. Sushant Pradhan Erythrocyte distribution width (RBC) [Ratio] 14.7 % Normal 11.0-15.0 [facility] Comment on above: Performed By: #### C BC #### [facility] [address] [place] [address] Dr. Sushant Pradhan Hematocrit (Bld) [Volume fraction] 35.5 % Critically low 42.0-54.0 [facility] Comment on above: Performed By: #### C BC #### [facility] [address] [place] [address] Dr. Sushant Pradhan Hemoglobin (Bld) [Mass/Vol] 12.8 g/dL Critically low 14.0-18.0 [facility] Comment on above: Performed By: #### C BC #### [facility] [address] [place] [address] Dr. Sushant Pradhan IG # 0.01 10e3/ul Normal 0.00-0.03 [facility] Comment on above: Performed By: #### C BC #### [facility] [address] [place] [address] Dr. Sushant Pradhan IG % 0.2 % Normal 0.0-0.5 [facility] Comment on above: Performed By: #### C BC #### [facility] [address] [place] [address] Dr. Sushant Pradhan LYMPH # 0.5 103/ul Critically low 1.2-3.8 [facility] Comment on above: Performed By: #### C BC #### [facility] [address] [place] [address] Dr. Sushant Pradhan Lymphocytes/100 WBC (Bld) 8.2 % Critically low 20.5-60.0 [facility] Comment on above: Performed By: #### C BC #### [facility] [address] [place] [address] Dr. Sushant Pradhan MANUAL DIFF REQ NO Normal [facility] Comment on above: Performed By: #### C BC #### [facility] [address] [place] [address] Dr. Sushant Pradhan MCH (RBC) [Entitic mass] 32.5 pg Normal 25.9-34.0 [facility] Comment on above: Performed By: #### C BC #### [facility] [address] [place] [address] Dr. Sushant Pradhan MCHC (RBC) [Mass/Vol] 36.1 g/dL Critically high 29.9-35.2 [facility] Comment on above: Performed By: #### C BC #### [facility] [address] [place] [address] Dr. Sushant Pradhan MCV (RBC) [Entitic vol] 90.1 fL Normal 80.0-94.0 [facility] Comment on above: Performed By: #### C BC #### [facility] [address] [place] [address] Dr. Sushant Pradhan MONO # 0.2 103/ul Critically low 0.3-0.8 [facility] Comment on above: Performed By: #### C BC #### [facility] [address] [place] [address] Dr. Sushant Pradhan Monocytes/100 WBC (Bld) 3.5 % Normal 1.7-12.0 [facility] Comment on above: Performed By: #### C BC #### [facility] [address] [place] [address] Dr. Sushant Pradhan NEUT # 4.8 103/ul Normal 1.4-6.5 [facility] Comment on above: Performed By: #### C BC #### [facility] [address] [place] [address] Dr. Sushant Pradhan Neutrophils/100 WBC (Bld) 87.9 % Critically high 43.0-75.0 [facility] Comment on above: Performed By: #### C BC #### [facility] [address] [place] [address] Dr. Sushant Pradhan Platelet mean volume (Bld) [Entitic vol] 9.4 fL Critically low 9.5-13.5 [facility] Comment on above: Performed By: #### C BC #### [facility] [address] [address] [address] Sushant Pradhan PLT 135 103/ul Critically low 150-450 [facility] Comment on above: Performed By: #### C BC #### [facility] [address] [address] [address] Sushant Pradhan RBC 3.94 106/ul Critically low 4.70-6.10 [facility] Comment on above: Performed By: #### C BC #### [facility] [address] [place] [address] Dr. Sushant Pradhan WBC 5.5 103/ul Normal 4.0-11.0 [facility] Comment on above: Performed By: #### C BC #### [facility] [address] [place] [address] Dr. Sushant Pradhan LIPID PROFILEon 11-24-2021 CHOL-HDL RATIO NORM SEE BELOW Normal [facility] Comment on above: Result Comment: 3.3 - 4.4 LOW RISK 4.4 - 7.1 AVERAGE RISK 7.1 - 11.0 MODERATE RISK >11.0 HIGH RISK Performed By: #### L IPID, BMP #### [facility] [address] [place] [address] Dr. Sushant Pradhan Cholesterol [Mass/Vol] 126 mg/dL Normal <=200 [facility] Comment on above: Performed By: #### L IPID, BMP #### [facility] [address] [place] [address] Dr. Sushant Pradhan Cholesterol in HDL [Mass/Vol] 73 mg/dL Critically high 40-60 [facility] Comment on above: Performed By: #### L IPID, BMP #### [facility] [address] [place] [address] Dr. Sushant Pradhan Cholesterol in LDL [Mass/Vol] 44.2 mg/dL Normal [facility] Comment on above: Performed By: #### L IPID, BMP #### [facility] [address] [address] [address] Sushant Pradhan Cholesterol.total/Cho lesterol in HDL [Mass ratio] 1.7 {ratio} Normal [facility] Comment on above: Performed By: #### L IPID, BMP #### [facility] [address] [address] [address] Sushant Pradhan HDL NORMAL > or = 60 mg/dl - LO W CARDIOVASCULAR RISK <40 mg/dl - HIGH CARDIOVASCULAR RISK Normal [facility] Comment on above: Performed By: #### L IPID, BMP #### [facility] [address] [address] [address] Sushant Pradhan LDL CALC NORMAL SEE BELOW Normal [facility] Comment on above: Result Comment: <100 mg/dl OPTIMAL 100 - 129 mg/dl NEAR OR ABOVE OPTIMAL 130 - 159 mg/dl BORDERLINE HIGH 160 - 189 mg/dl HIGH >190 mg/dl VERY HIGH Performed By: #### L IPID, BMP #### [facility] [address] [address] [address] Sushant Pradhan Triglyceride [Mass/Vol] 44 mg/dL Normal <=150 [facility] Comment on above: Performed By: #### L IPID, BMP #### [facility] [address] [address] [address] Sushant Pradhan VLDL CALC 8.8 mg/dL Normal [facility] Comment on above: Performed By: #### L IPID, BMP #### [facility] [address] [address] [address] Sushant Pradhan NM STRESS/REST MULTIon 11-24 NM STRESS/REST MULTI Patient: EDISON ECHOLS N. Exam Date: 11/24/2021 : 1965 Gender:M Ordering : DR LIZBET LARA . Admission #: [id number] Family : Order #: [id number] CLICK HERE TO VIEW EXAM RADIOLOGY REPORT [...] MD on 11/24/2021 at 15:06 Normal [facility] PROF CHEM 8 (BAS METB)on Anion gap [Moles/Vol] 10.7 mmol/L Normal [facility] Comment on above: Performed By: #### L TANYAID, BMP #### [facility] [address] [place] [address] Dr. Sushant Pradhan Calcium [Mass/Vol] 8.5 mg/dL Normal 8.5-10.1 [facility] Comment on above: Performed By: #### L IPID, BMP #### [facility] [address] [place] [address] Dr. Sushant Pradhan Chloride [Moles/Vol] 96 mmol/L Critically low 98-107 [facility] Comment on above: Performed By: #### L IPID, BMP #### [facility] [address] [place] [address] Dr. Sushant Pradhan CO2 [Moles/Vol] 22.0 mmol/L Normal 21.0-32.0 [facility] Comment on above: Performed By: #### L IPID, BMP #### [facility] [address] [address] [address] Sushant Pradhan Creatinine [Mass/Vol] 1.04 mg/dL Normal 0.70-1.30 [facility] Comment on above: Performed By: #### L IPID, BMP #### [facility] [address] [address] [address] Sushant Pradhan EGFR-AF JAMAICAN >60 Normal >=60 [facility] Comment on above: Performed By: #### L IPID, BMP #### [facility] [address] [address] [address] Sushant Pradhan EGFR-NON AF JAMAICAN >60 Normal >=60 [facility] Comment on above: Performed By: #### L IPID, BMP #### [facility] [address] [address] [address] Sushant Pradhan Glucose [Mass/Vol] 139 mg/dL Critically high 74-106 [facility] Comment on above: Performed By: #### L IPID, BMP #### [facility] [address] [place] [address] Dr. Sushant Pradhan Potassium [Moles/Vol] 4.2 mmol/L Normal 3.5-5.1 [facility] Comment on above: Performed By: #### L IPID, BMP #### [facility] [address] [place] [address] Dr. Sushant Pradhan Sodium [Moles/Vol] 127 mmol/L Critically low 136-145 [facility] Comment on above: Performed By: #### L IPID, BMP #### [facility] [address] [place] [address] Dr. Sushant Pradhan Urea nitrogen [Mass/Vol] 12.0 mg/dL Normal 7.0-18.0 [facility] Comment on above: Performed By: #### L IPID, BMP #### [facility] [address] [place] [address] Dr. Sushant Pradhan Urea nitrogen/Creatinine [Mass ratio] 11.5 mg/mg Normal [facility] Comment on above: Performed By: #### L IPID, BMP #### [facility] [address] [place] [address] Dr. Sushant Pradhan BNPon 11-23-2021 Natriuretic peptide B (Bld) [Mass/Vol] 189.0 pg/mL Normal <=900.0 [facility] Comment on above: Performed By: #### B UNIVERSITY ADMINISTRATIVE ASSISTANT, HSTROPN, BMP #### [facility] [address] [place] [address] Dr. Sushant Pradhan CARDIAC SONIA 3-6on 2 CK [Catalytic activity/Vol] 73 U/L Normal 39-308 [facility] Comment on above: Performed By: #### C MREP #### [facility] [address] [place] [address] Dr. Sushant Pradhan CK.MB [Mass/Vol] 1.78 ng/mL Normal <=3.60 [facility] Comment on above: Performed By: #### C MREP #### [facility] [address] [place] [address] Dr. Sushant Pradhan HSTROP 4.2 pg/mL Normal 4.0-76.1 [facility] Comment on above: Result Comment: CUT- OFF POINTS HAVE BEEN ESTABLISHED BASED ON THE FOURTH UNIVERSAL DEFINITIONS OF MYOCARDIAL INFARCTION. THE UPPER REFERENCE LIMIT (URL) OF TROPONIN, DEFINED THE 99TH PERCENTILE OF cTnI DISTRIBUTION IN A REFERENCE POPULATION, HAS BEEN CONFIRMED THE DECISION THRESHOLD FOR LA DIAGNOSIS. Performed By: #### C MREP #### [facility] [address] [place] [address] Dr. Sushant Pradhan CBC AUTO DIFFon 11-23-2021 BASO # 0.0 103/ul Normal 0.0-0.1 [facility] Comment on above: Performed By: #### C BC #### [facility] [address] [place] [address] Dr. Sushant Pradhan Basophils/100 WBC (Bld) 0.5 % Normal 0.2-2.0 [facility] Comment on above: Performed By: #### C BC #### [facility] [address] [place] [address] Dr. Sushant Pradhan EO # 0.1 103/ul Normal 0.0-0.7 [facility] Comment on above: Performed By: #### C BC #### [facility] [address] [place] [address] Dr. Sushant Pradahn Eosinophils/100 WBC (Bld) 0.9 % Normal 0.9-7.0 [facility] Comment on above: Performed By: #### C BC #### [facility] [address] [place] [address] Dr. Sushant Pradhan Erythrocyte distribution width (RBC) [Ratio] 15.3 % Critically high 11.0-15.0 [facility] Comment on above: Performed By: #### C BC #### [facility] [address] [place] [address] Dr. Sushant Pradhan Hematocrit (Bld) [Volume fraction] 38.7 % Critically low 42.0-54.0 [facility] Comment on above: Performed By: #### C BC #### [facility] [address] [place] [address] Dr. Sushant Pradhan Hemoglobin (Bld) [Mass/Vol] 14.0 g/dL Normal 14.0-18.0 [facility] Comment on above: Performed By: #### C BC #### [facility] [address] [place] [address] Dr. Sushant Pradhan IG # 0.01 10e3/ul Normal 0.00-0.03 [facility] Comment on above: Performed By: #### C BC #### [facility] [address] [place] [address] Dr. Sushant Pradhan IG % 0.2 % Normal 0.0-0.5 [facility] Comment on above: Performed By: #### C BC #### [facility] [address] [place] [address] Dr. Sushant Pradhan LYMPH # 1.1 103/ul Critically low 1.2-3.8 [facility] Comment on above: Performed By: #### C BC #### [facility] [address] [place] [address] Dr. Sushant Pradhan Lymphocytes/100 WBC (Bld) 17.2 % Critically low 20.5-60.0 [facility] Comment on above: Performed By: #### C BC #### [facility] [address] [place] [address] Dr. Sushant Pradhan MANUAL DIFF REQ NO Normal [facility] Comment on above: Performed By: #### C BC #### [facility] [address] [place] [address] Dr. Sushant Pradhan MCH (RBC) [Entitic mass] 32.7 pg Normal 25.9-34.0 [facility] Comment on above: Performed By: #### C BC #### [facility] [address] [place] [address] Dr. Sushant Pradhan MCHC (RBC) [Mass/Vol] 36.2 g/dL Critically high 29.9-35.2 [facility] Comment on above: Performed By: #### C BC #### [facility] [address] [place] [address] Dr. Sushant Pradhan MCV (RBC) [Entitic vol] 90.4 fL Normal 80.0-94.0 [facility] Comment on above: Performed By: #### C BC #### [facility] [address] [place] [address] Dr. Sushant Pradhan MONO # 0.5 103/ul Normal 0.3-0.8 [facility] Comment on above: Performed By: #### C BC #### [facility] [address] [place] [address] Dr. Sushant Pradhan Monocytes/100 WBC (Bld) 7.8 % Normal 1.7-12.0 [facility] Comment on above: Performed By: #### C BC #### [facility] [address] [place] [address] Dr. Sushant Pradhan NEUT # 4.7 103/ul Normal 1.4-6.5 [facility] Comment on above: Performed By: #### C BC #### [facility] [address] [place] [address] Dr. Sushant Pradhan Neutrophils/100 WBC (Bld) 73.4 % Normal 43.0-75.0 [facility] Comment on above: Performed By: #### C BC #### [facility] [address] [address] [address] Sushant Pradhan Platelet mean volume (Bld) [Entitic vol] 9.1 fL Critically low 9.5-13.5 [facility] Comment on above: Performed By: #### C BC #### [facility] [id number] Sushant Pradhan PLT 153 103/ul Normal 150-450 [facility] Comment on above: Performed By: #### C BC #### [facility] [id number] Sushant Pradhan RBC 4.28 106/ul Critically low 4.70-6.10 [facility] Comment on above: Performed By: #### C BC #### [facility] [address] [address] [address] Sushant Pradhan WBC 6.4 103/ul Normal 4.0-11.0 [facility] Comment on above: Performed By: #### C BC #### [facility] [address] [address] [address] Sushant Pradhan CTA CHEST WO W CONon 07-13-2 022 CTA CHEST WO W CON EXAMINATION: [...] MARCE PAGAN Date: 2021-11-23 15:47 Normal [facility] Covid-19 PCR (CVDTB)on 11-11 SARS-CoV-2 (COVID-19) RNA DEANA+probe Ql (Unsp spec) Not detected Normal NOT DETECTED [facility] Comment on above: Result Comment: When diagnostic [...] for this test is supported by the [place] of Health and Human Service's declaration that [...] used). Performed By: #### C BC #### [facility] [address] [place] [address] Dr. Sushant Pradhan PROF CHEM 8 (BAS METB)on Anion gap [Moles/Vol] 13.9 mmol/L Normal [facility] Comment on above: Performed By: #### B UNIVERSITY ADMINISTRATIVE ASSISTANT, HSTROPN BMP #### [facility] [address] [place] [address] Dr. Sushant Pradhan Calcium [Mass/Vol] 8.4 mg/dL Critically low 8.5-10.1 [facility] Comment on above: Performed By: #### B UNIVERSITY ADMINISTRATIVE ASSISTANT HSTROPN, BMP #### [facility] [address] [place] [address] Dr. Sushant Pradhan Chloride [Moles/Vol] 94 mmol/L Critically low 98-107 [facility] Comment on above: Performed By: #### B UNIVERSITY ADMINISTRATIVE ASSISTANT, HSTROPN BMP #### [facility] [address] [address] [address] Sushant Pradhan CO2 [Moles/Vol] 24.7 mmol/L Normal 21.0-32.0 [facility] Comment on above: Performed By: #### B UNIVERSITY ADMINISTRATIVE ASSISTANT, HSTROPN, BMP #### [facility] [address] [address] [address] Sushant Pradhan Creatinine [Mass/Vol] 0.97 mg/dL Normal 0.70-1.30 [facility] Comment on above: Performed By: #### B UNIVERSITY ADMINISTRATIVE ASSISTANT, HSTROPN, BMP #### [facility] [address] [address] [address] Sushant Pradhan EGFR-AF JAMAICAN >60 Normal >=60 [facility] Comment on above: Performed By: #### B UNIVERSITY ADMINISTRATIVE ASSISTANT, HSTROPN, BMP #### [facility] [address] [address] [address] Sushant Pradhan EGFR-NON AF JAMAICAN >60 Normal >=60 [facility] Comment on above: Performed By: #### B UNIVERSITY ADMINISTRATIVE ASSISTANT, HSTROPN, BMP #### [facility] [address] [address] [address] Sushant Pradhan Glucose [Mass/Vol] 76 mg/dL Normal 74-106 [facility] Comment on above: Performed By: #### B UNIVERSITY ADMINISTRATIVE ASSISTANT, HSTROPN, BMP #### [facility] [address] [address] [address] Sushant Pradhan Potassium [Moles/Vol] 4.6 mmol/L Normal 3.5-5.1 [facility] Comment on above: Performed By: #### B UNIVERSITY ADMINISTRATIVE ASSISTANT, HSTROPN, BMP #### [facility] [address] [address] [address] Sushant Pradhan Sodium [Moles/Vol] 128 mmol/L Critically low 136-145 Th [facility] Comment on above: Performed By: #### B UNIVERSITY ADMINISTRATIVE ASSISTANT, HSTROPN, BMP #### [facility] [address] [address] [address] Sushant Pradhan Urea nitrogen [Mass/Vol] 9.0 mg/dL Normal 7.0-18.0 [facility] Comment on above: Performed By: #### B UNIVERSITY ADMINISTRATIVE ASSISTANT, HSTROPN, PATTIE #### [facility] [address] [place] [address] [address] [address] Sushant Pradhan Urea nitrogen/Creatinine [Mass ratio] 9.3 mg/mg Normal [facility] Comment on above: Performed By: #### B UNIVERSITY ADMINISTRATIVE ASSISTANT, HSTROPN, BMP #### [facility] [address] [place] [address] Dr. Sushant Pradhan TROPONIN, HIGH SENSITIVITYon 11-23-2021 HSTROP 4.4 pg/mL Normal 4.0-76.1 [facility] Comment on above: Result Comment: CUT- OFF POINTS HAVE BEEN ESTABLISHED BASED ON THE FOURTH UNIVERSAL DEFINITIONS OF MYOCARDIAL INFARCTION. THE UPPER REFERENCE LIMIT (URL) OF TROPONIN, DEFINED THE 99TH PERCENTILE OF cTnI DISTRIBUTION IN A REFERENCE POPULATION, HAS BEEN CONFIRMED THE DECISION THRESHOLD FOR LA DIAGNOSIS. Performed By: #### B UNIVERSITY ADMINISTRATIVE ASSISTANT, HSTROPN, BMP #### [facility] [address] [place] [address] [address] Sushant Pradhan Laboratory - Chemistry and C hemistry - challengeon 09-09-2021 Cholesterol [Mass/Vol] 125\S\125 below low threshold 140-200 [facility] y 250 DO Work Phone: Comment on above: Chol less than 200 m g/dl low risk Chol 201-239 mg/dl borderline risk Chol 240 mg/dl and greater high risk Cholesterol in LDL [Mass/Vol] 46\S\46 Normal 0-100 [facility] y 250 DO Work Phone: Comment on above: LDL ATP III CLASSIFI CATION LDL less than 100 mg/dL Optimal LDL 100-129 mg/dL Near or above optimal LDL 130-159 mg/dL Borderline high LDL 160-189 mg/dL High LDL greater than 189 mg/dL Very high Laboratory - Microbiology an d Antimicrobial susceptibilityon 09-09-2021 SARS-CoV-2 (COVID-19) RNA DEANA+probe Ql (Unsp spec) [facility] y 250 DO Work Phone: No Panel Informationon 09-09 78.5\S\78.5 above high threshold 25.1-36.5 [facility] y 250 DO Work Phone: Comment on above: PERFORMED BY:[facility] [place] [phone] MEDICAL DIRECTORCATY DELCID M.D. 1.0\S\1.0 Normal [facility] y 250 DO Work [...] valves: 3 - 4.5 11.5\S\11.5 Normal 9.0-12.9 [facility] y 250 DO Work Phone: 1.8\S\1.8 Normal <5.0 [facility] y 250 DO Work Phone: Comment on above: PERFORMED BY:[facility] [place] [phone] MEDICAL DIRECTORCATY DELCID M.D. 11\S\11 Normal [facility] y [address] DO Work Phone: 57\S\57 Normal 35-149 [facility] y 250 DO Work Phone: Comment on above: TRIG ATP III CLASSIF ICATION TRIG less than 150 mg/dL Normal TRIG 150-199 mg/dL Borderline high TRIG 200-500 mg/dL High TRIG greater than 500 mg/dL Very high Standard traceable to the Center for Disease Conrtrol and Prevention (CDC) test method. 68\S\68 Normal 29-71 [facility] y 250 DO Work Phone: Comment on above: HDL CHOL ATP-III CLA SSIFICATION Cardiovascular Risk HDL > or equal to 60 mg/dL LOW HDL < 40 mg/dL HIGH Negative Normal Negative -[facility] [place] DO Work Phone: Comment on above: This is a duplicate Jonna SARS Antigen (EROS) result to be used for statistical tracking purpose only.PERFORMED BY:[facility] [place], [place] [phone] MEDICAL DIRECTORCATY DELCID M.D. 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) Orders Angina, class IV, Chest pain Cardiac Catherization; Status:Active - Retrospective Authorization; Requested for:[id number]; Chest pain Start: Aspirin 81 MG Oral Tablet Delayed Release; TAKE 1 TABLET DAILY DIRECTED Start: Metoprolol Tartrate 25 MG Oral Tablet; TAKE 0.5 TABLET Twice daily Start: Nitroglycerin 0.4 MG/HR Transdermal Patch 24 Hour; APPLY PATCH FOR 12 TO 14 HOURS DAILY, THEN REMOVE Health Maintenance IO EKG Electrocardiogram- 12 Lead; Status:Complete; Done: [id number] Lung cancer PHQ2 Screen Positive; Status:Complete - Retrospective Authorization; Done: [id number] SocHx: Former smoker Tobacco Use Screening; Status:Complete; Done: [id number] Patient Instructions By signing my name below, Karin Nation LPN, Scribe, attest that this documentation has been prepared [...] pain and dyspnea. Patient is a 56-year-old -[place] gentleman returns and seen in cardiology consultation [...] negative for complaint. Vitals Vital Signs Recorded: [id number] 10:09AMRecorded: [id number] 10:05AM [id number], LUE, Edxtgpa605, RUE, Sitting Ohfwucuwp63, LUE, Pjjgjrt88, RUE, Sitting Heart Rate96, Apical Height6 ft Xhials050 lb BMI Pbpqhzpkyv17.16 kg/m2 BSA (more content not included)... Normal [place] Tobacco Screening.on 022 Adult depression screening assessment Yes [email or web address] y 250 DO Work Phone: Fall risk assessment c) Not medically indicated [facility] y 250 DO Work Phone: [phone] Tobacco use status CP b) No [facility] y 250 DO Work Phone: [phone] Tobacco Screening. 3-Nearly every day [facility] [employer] y 250 DO Work Phone: Tobacco Screening. 2-More than half the days [facility] [employer] Technology[employer] y 250 DO Work Phone: Tobacco Screening. 0-Not at all [facility] y 250 DO Work Phone: Tobacco Screening. Extremely Difficult [facility] y 250 DO Work Phone: Albumin [Mass/volume] in Ser um or PlasmaOrdered By: Estela Varma on 09-02-2021 Albumin [Mass/Vol] 3.8 g/dL 3.2-5.5 [facility] Basophils Auto (Bld) [#/Vol] Ordered By: Estela Varma on 09-02-2021 Basophils (Bld) [#/Vol] 0.0 10*3/uL 0.0-0.2 [facility] Basophils/100 WBC Auto (Bld) Ordered By: Estela Varma on 09-02-2021 Basophils/100 WBC (Bld) 0.7 % . [facility] Eosinophils Auto (Bld) [#/Vo l]Ordered By: Estela Varma on 09-02-2021 Eosinophils (Bld) [#/Vol] 0.2 10*3/uL 0.0-0.45 [facility] Eosinophils/100 WBC Auto (Bl d)Ordered By: Estela Varma on 09-02-2021 Eosinophils/100 WBC (Bld) 4.2 % . [facility] Erythrocyte distribution wid th Auto (RBC) [Ratio]Ordered By: Estela Varma on 09-02-2021 Erythrocyte distribution width (RBC) [Ratio] 15.7 % 12.0-14.8 [facility] Globulin Calc (S) [Mass/Vol] Ordered By: Estela Varma on 09-02-2021 Globulin (S) [Mass/Vol] 3.4 g/dL [facility] Glucose Glucometer (BldC) [M ass/Vol]Ordered By: George Ash on 09-02-2021 Glucose [Mass/Vol] 82 mg/dL [facility] Comment on above: Random Glucose Refer ence Range is dependent on time and content of last meal. Glucose of more than 200 mg/dL in a nonstressed, ambulatory subject supports the diagnosis of Diabetes Mellitus. Hematocrit Auto (Bld) [Volum e fraction]Ordered By: Estela Varma on 09-02-2021 Hematocrit (Bld) [Volume fraction] 42.4 % 38.8-50.0 [facility] Hemoglobin [Mass/volume] in BloodOrdered By: Estela Varma on 09-02-2021 Hemoglobin (Bld) [Mass/Vol] 14.6 g/dL 13.0-17.0 [facility] Laboratory - Hematology and Cell countsOrdered By: Estela Varma on 09-02-2021 Nucleated RBC/100 WBC (Bld) [Ratio] 0.1 % 0-0.5 [facility] Leukocytes [#/volume] in Blo od by Automated countOrdered By: Estela Varma on 09-02-2021 WBC (Bld) [#/Vol] 5.0 10*3/uL 4.5-11.0 [facility] Lymphocytes Auto (Bld) [#/Vo l]Ordered By: Estela Varma on 09-02-2021 Lymphocytes (Bld) [#/Vol] 0.9 10*3/uL 1.00-4.8 [facility] Lymphocytes/100 WBC Auto (Bl d)Ordered By: Estela Varma on 09-02-2021 Lymphocytes/100 WBC (Bld) 18.2 % . [facility] MCH Auto (RBC) [Entitic mass ]Ordered By: Estela Varma on 09-02-2021 MCH (RBC) [Entitic mass] 32.6 pg 27.5-35.2 [facility] MCHC Auto (RBC) [Mass/Vol]Or dered By: Estela Varma on 09-02-2021 MCHC (RBC) [Mass/Vol] 34.4 g/dL 32.5-35.6 [facility] MCV Auto (RBC) [Entitic vol] Ordered By: Estela Varma on 09-02-2021 MCV (RBC) [Entitic vol] 94.8 fL 83.5-101 [facility] Monocytes Auto (Bld) [#/Vol] Ordered By: Estela Varma on 09-02-2021 Monocytes (Bld) [#/Vol] 0.4 10*3/uL 0.0-0.8 [facility] Monocytes/100 WBC Auto (Bld) Ordered By: Estela Varma on 09-02-2021 Monocytes/100 WBC (Bld) 7.9 % . [facility] Neutrophils Auto (Bld) [#/Vo l]Ordered By: Estela Varma on 09-02-2021 Neutrophils (Bld) [#/Vol] 3.5 10*3/uL 1.8-7.7 [facility] Neutrophils/100 WBC Auto (Bl d)Ordered By: Estela Varma on 09-02-2021 Neutrophils/100 WBC (Bld) 69.0 % . [facility] Platelet mean volume Auto (B ld) [Entitic vol]Ordered By: Estela Varma on 09-02-2021 Platelet mean volume (Bld) [Entitic vol] 7.0 fL 6.6-10.1 [facility] Platelets Auto (Bld) [#/Vol] Ordered By: Estela Varma on 09-02-2021 Platelets (Bld) [#/Vol] 186 10*3/uL 150-450 [facility] Protein [Mass/volume] in Ser um or PlasmaOrdered By: Estela Varma on 09-02-2021 Protein [Mass/Vol] 7.2 g/dL 6.1-7.9 [facility] RBC Auto (Bld) [#/Vol]Ordere d By: Estela Varma on 09-02-2021 RBC (Bld) [#/Vol] 4.48 10*6/uL 3.90-5.60 [facility] Serum or plasma alanine glynn otransferase measurement without P-5'-P (enzymatic activiOrdered By: Estela Varma on 09-02-2021 ALT No additional P-5'-P [Catalytic activity/Vol] 13 U/L 10-60 [facility] Serum or plasma albumin/glob ulin mass ratioOrdered By: Estela Varma on 09-02-2021 Albumin/Globulin [Mass ratio] 1.1 {ratio} [facility] Serum or plasma alkaline abhijit sphatase measurement (enzymatic activity/volume)Ordered By: Estela Varma on 09-02-2021 ALP [Catalytic activity/Vol] 130 U/L 32-92 [facility] Serum or plasma aspartate am inotransferase measurement (enzymatic activity/volume)Ordered By: Estela Varma on 09-02-2021 AST [Catalytic activity/Vol] 18 U/L 10-42 [facility] Serum or plasma calcium ledy urement (mass/volume)Ordered By: Estela Varma on 09-02-2021 Calcium [Mass/Vol] 9.0 mg/dL 8.2-10.2 [facility] Serum or plasma carcinoembry onic antigen measurement (mass/volume)Ordered By: Estela Varma on 09-02-2021 Carcinoembryonic Ag [Mass/Vol] 11.4 ng/mL 0.0-3.0 [facility] Serum or plasma chloride carlyn surement (moles/volume)Ordered By: Estela Varma on 09-02-2021 Chloride [Moles/Vol] 100 mmol/L 95-114 [facility] Serum or plasma glucose ledy urement (mass/volume)Ordered By: Estela Varma on 09-02-2021 Glucose [Mass/Vol] 78 mg/dL 70-100 [facility] Comment on above: ADA recommended refe rence rangeRandom Glucose Reference Range is dependent on time and content of last meal. Glucose of more than 200 mg/dL in a nonstressed, ambulatory subject supports the diagnosis of Diabetes Mellitus. Serum or plasma potassium me asurement (moles/volume)Ordered By: Estela Varma on 09-02-2021 Potassium [Moles/Vol] 4.3 mmol/L 3.5-5.1 [facility] Serum or plasma sodium measu rement (moles/volume)Ordered By: Estela Varma on 09-02-2021 Sodium [Moles/Vol] 133 mmol/L 136-146 [facility] Serum or plasma total biliru bin measurement (mass/volume)Ordered By: Estela Varma on 09-02-2021 Bilirubin [Mass/Vol] 0.6 mg/dL 0.3-1.2 [facility] Serum or plasma total carbon dioxide measurement (moles/volume)Ordered By: Estela Varma on 09-02-2021 CO2 [Moles/Vol] 23.9 mmol/L 22.0-30.0 [facility] TSH DL <= 0.005 mIU/L QnOrde red By: George Ash on 01-31-2021 TSH Qn 1.65 m[IU]/L 0.45-5.33 [facility] Lipid Panel Fastingon 2020 Cholesterol [Mass/Vol] 145 mg/dL Normal 0-199 [facility] Comment on above: Result Comment: ATP III Cholesterol classification is Desirable. Performed By: #### L IPDF #### [facility] [address] [place] [address] HDL Cholesterol Fasting 49 mg/dL Normal 40-59 [facility] Comment on above: Result Comment: ATP III [...] CHD Performed By: #### L IPDF #### [facility] [address] [place] [address] LDL Cholesterol (Calculated) Fasting 76 mg/dL Normal 0-129 [facility] Comment on above: Result Comment: ATP III LDL Classification is Optimal. Performed By: #### L IPDF #### [facility] [address] [place] [address] Triglycerides Fasting 98 mg/dL Normal 0-150 [facility] Comment on above: Result Comment: ATP III Triglycerides Classification is Normal. Performed By: #### L IPDF #### [facility] [address] [place] [address] Vitamin B12 and Folateon Cobalamin (Vitamin B12) [Mass/Vol] 417 pg/mL Normal 232-1245 [facility] Comment on above: Performed By: #### B 12FO #### [facility] [address] [place] [address] Folate 13.4 ng/mL Normal 7.3-26.1 [facility] Comment on above: Result Comment: As o f 15, the methodology has changed. Results from this methodology should not be compared with results from previous methodology. Performed By: #### B 12FO #### [facility] [address] [place] [address] Vitamin Don 08-20-2020 Vitamin D 33.1 ng/mL Normal 30.0-100.0 [facility] Comment on above: Result Comment: (30- 100 ng/mL) Optimum Level This assay accurately quantifies the sum of vitamin D3, 25-Hydroxy and vitamin D2, 25-Hyroxy. Performed By: #### V ITD #### [facility] [address] [place] [address] Thyroxine (T4) free [Mass/vo lume] in Serum or Plasmaon 08-16-2020 Free T4 [Mass/Vol] 0.79 ng/dL 0.61-1.12 [facility] Lipid Profileon 08-06-2020 Cholesterol [Mass/Vol] 132 mg/dL Normal <200 [facility] Comment on above: Result Comment: Cholesterol Guidelines: <200 Desirable 200-240 Borderline >240 Undesirable Performed By: #### L IPR #### [address] [address] Siding Applicator: Joe Todd MD Cholesterol in HDL [Mass/Vol] 41 mg/dL Normal >40 [facility] Comment on above: Result Comment: HDL Guidelines: <40 Undesirable 40-59 Borderline >59 Desirable Performed By: #### L IPR #### [address] [address] Siding Applicator: Joe Todd MD Cholesterol in LDL [Mass/Vol] 72 mg/dL Normal 0-130 [facility] Comment on above: Result Comment: LDL Guidelines: <100 Desirable 100-129 Near to/above Desirable 130-159 Borderline >159 Undesirable Direct (measured) LDL and calculated LDL are not interchangeable tests. Performed By: #### L IPR #### [facility] [address] [place] [address] Siding Applicator: Joe Todd MD Cholesterol.total/Cho lesterol in HDL [Mass ratio] 3.2 {ratio} Normal <5 [facility] Comment on above: Performed By: #### L IPR #### [facility] [address] [place] [address] [id number] Siding Applicator: Joe Todd MD Triglyceride [Mass/Vol] 93 mg/dL Normal <150 [facility] Comment on above: Result Comment: Triglyceride Guidelines: <150 Desirable 150-199 Borderline 200-499 High >499 Very high Based on AHA Guidelines for fasting triglyceride, February 2012. Performed By: #### L IPR #### [facility] [address] [place], [place] [id number] Siding Applicator: Joe Todd MD Cholesterol in VLDL [Mass/Vol] NOT REPORTED Normal 06-12 [facility] Comment on above: Performed By: #### L IPR #### [facility] [address] [place] [address] Siding Applicator: Joe Todd MD Direct bilirubin measurement on 07-05-2020 Bilirubin.direct [Mass/Vol] 0.1 mg/dL 0.0-0.4 [facility] Serum or plasma non-glucuron idated bilirubin measurement (mass/volume)on 07-05-2020 Bilirubin.indirect [Mass/Vol] 0.8 mg/dL [facility] - Hematology and Cell countson 05-24-2020 WBC (Bld) [#/Vol] 4.9 10*3/uL 4.5-11.0 [facility] Blood anisocytosis detection on 03-08-2020 Anisocytosis Ql (Bld) Slight [facility] No Panel Informationon 03-08 Platelet Estimate Normal Normal [facility] Platelet Morphology Comment Normal Normal [facility] RBC morphologyon 03-08-2020 RBC morphology finding Nom (Bld) N/A [facility] CARDIAC STRESS/REST (DILAN CARDIAL PERFUSION/MIBI)on 03-03-2020 [facility] CARDIAC STRESS/REST (MYOCARDIAL PERFUSION/MIBI) Patient Name: KIRILL ECHOLS STUDY: MYOCARDIAL PERFUSION STRESS TEST WITH LEXISCAN Performing facility: [facility], \[address], [address], \[place] [address] [facility] Provider: Ema Oliveira DO, FACC PCP: Dr. Danni Andrea Supervising provider: Tejal King MD, [facility] INDICATION: Chest Pain; HISTORY: Gender: M; Age: 54 y/o ; Height: 182.88 cm; Weight: 71.4357246 kg. HTN; Chest Pain; COPD; Quit smoking in 2020 years ago. COMPARISON: No comparison. ACCESSION NUMBER(S): [id number]; [id number]; [id number] ORDERING CLINICIAN: LUKAS OLIVEIRA TECHNIQUE: ONE DAY [...] Electronically signed by: TEJAL KING MD Normal [facility] CARDIAC STRESS/REST INJE CTIONon 03-03-2020 [facility] CARDIAC STRESS/REST INJECTION Patient Name: KIRILL ECHOLS STUDY: MYOCARDIAL PERFUSION STRESS TEST WITH LEXISCAN Performing facility: [facility], \[address], [address], [facility] [address] [facility] Provider: Ema Oliveira DO, [facility] PCP: Dr. Danni Andrea Supervising provider: Tejal King MD, [facility] INDICATION: Chest Pain; HISTORY: Gender: M; Age: 54 y/o ; Height: 182.88 cm; Weight: 71.5138527 kg. HTN; Chest Pain; COPD; Quit smoking in 2020 years ago. COMPARISON: No comparison. ACCESSION NUMBER(S): [id number]; [id number]; [id number] ORDERING CLINICIAN: LUKAS OLIVEIRA TECHNIQUE: ONE DAY [...] comparison. Electronically signed by: TEJAL KING MD [facility] PART 2 STRESS OR REST (N O CHARGE)on 03-03-2020 [facility] PART 2 STRESS OR REST (NO CHARGE) Patient Name: KIRILL ECHOLS STUDY: MYOCARDIAL PERFUSION STRESS TEST WITH LEXISCAN Performing facility: [facility], [address], [address], \[place] [address] [facility] Provider: Ema Oliveira DO, [facility] PCP: Dr. Danni Andrea Supervising provider: Tejal King MD, [facility] INDICATION: Chest Pain; HISTORY: Gender: M; Age: 54 y/o ; Height: 182.88 cm; Weight: 71.8443998 kg. HTN; Chest Pain; COPD; Quit smoking in 2020 years ago. COMPARISON: No comparison. ACCESSION NUMBER(S): [id number]; [id number]; [id number] ORDERING CLINICIAN: LUKAS OLIVEIRA TECHNIQUE: ONE DAY [...] comparison. Electronically signed by: TEJAL KING MD [facility] No Panel Informationon 03-02 Schistocytes Rare [facility] Target cellson 03-02-2020 Target cells LM Ql (Bld) Slight [facility] Basophil percentageon 2019 Eosinophils/100 WBC (Bld) 1 % 1-3 [facility] Blood polychromasia detectio n by light microscopyon 02-24-2020 Polychromasia LM Ql (Bld) Slight [facility] - Hematology and Cell countson 02-24-2020 Band form neutrophils/100 WBC (Bld) 13 % 0-5 [facility] Lymphocytes/100 WBC Auto (Bl d)on 02-24-2020 Lymphocytes/100 WBC (Bld) 9 % 18-42 [facility] Monocyte %on 02-24-2020 Monocytes/100 WBC (Bld) 1 % 1-3 [facility] Monocytes/100 WBC Manual cnt (Bld)on 02-24-2020 Monocytes/100 WBC (Bld) 16 % 2-11 [facility] No Panel Informationon 02-23 Dohle Bodies Moderate [facility] Poikilocytosis Slight [facility] Ovalocyte detectionon 2019 Ovalocytes LM Ql (Bld) Slight [facility] Segmented neutrophils/100 WB C Manual cnt (Bld)on 02-24-2020 Segmented neutrophils/100 WBC (Bld) 61 % 50-70 [facility] Hypochromia detectionon 01-13 Hypochromia Ql (Bld) Slight [facility] Macrocytes detectionon 01-19 Macrocytes Ql (Bld) Slight [facility] No Panel Informationon 01-19 Smudge Cells Few [facility] Red blood cell stomatocyte d etectionon 12-09-2019 Stomatocytes LM Ql (Bld) [facility] Respiratory specimen 2019 no mathieu coronavirus RNA detection by probe and target amplifion 11-21-2019 SARS-CoV-2 (COVID-19) RNA DEANA+probe Ql (Resp) Not detected Not Detected [facility] Comment on above: This test was develo ped and its performance characteristicsdetermined by [employer]. This test has not beenFDA cleared or [...] (not detected) result in this assay.Performed at: [place] [address] [facility] [place] [id number] Director: Antonio Chaney MD, Phone: [phone] Basophils/100 WBC Auto (Bld) on 11-18-2019 Basophils/100 WBC (Bld) 1 % 0-2 [facility] Amylaseon 04-28-2018 Amylase enzyme act/vol 130 U/L High 30-110 [facility] Comment on above: Performed By: #### C BCDIF, PT, GBCHEM, GBTSH, LIPA, MG, GBHCV, HAVIGM, HBCAB, HBSAG, RPR ####[facility] [id number] [place], [place] [phone] GGTon 04-28-2018 Gamma glutamyl transferase [Enzymatic activity/volume] in Serum or Plasma 426 U/L High 15-73 [facility] Comment on above: Performed By: #### C BCDIF, PT, GBCHEM, GBTSH, LIPA, MG, GBHCV, HAVIGM, HBCAB, HBSAG, RPR ####[facility] [id number] [place], [place] [phone] Hepatic Function Pnlon 04-28 Albumin mass conc 4.2 g/dL Normal 3.5-5.0 [facility] Comment on above: Performed By: #### C BCDIF, PT, GBCHEM, GBTSH, LIPA, MG, GBHCV, HAVIGM, HBCAB, HBSAG, RPR ####[facility] [id number] [place], [place] [phone] Alkaline Phos 96 U/L Normal 38-125 [facility] Comment on above: Performed By: #### C BCDIF, PT, GBCHEM, GBTSH, LIPA, MG, GBHCV, HAVIGM, HBCAB, HBSAG, RPR ####[facility] [id number] [place], [place] [phone] ALT enzyme act/vol 60 U/L Normal 21-72 [facility] Comment on above: Performed By: #### C BCDIF, PT, GBCHEM, GBTSH, LIPA, MG, GBHCV, HAVIGM, HBCAB, HBSAG, RPR ####[facility] [id number] [place], [place] [phone] AST enzyme act/vol 65 U/L High 17-59 [facility] Comment on above: Performed By: #### C BCDIF, PT, GBCHEM, GBTSH, LIPA, MG, GBHCV, HAVIGM, HBCAB, HBSAG, RPR ####[facility] [id number] [place], [place] [phone] Bilirubin Ql (U) 0.3 mg/dL Normal 0.2-1.3 [facility] Comment on above: Performed By: #### C BCDIF, PT, GBCHEM, GBTSH, LIPA, MG, GBHCV, HAVIGM, HBCAB, HBSAG, RPR ####[facility] [id number] [place], [place] [phone] Bilirubin.direct mass conc 0.2 mg/dL Normal 0.0-0.4 [facility] Comment on above: Performed By: #### C BCDIF, PT, GBCHEM, GBTSH, LIPA, MG, GBHCV, HAVIGM, HBCAB, HBSAG, RPR ####[facility] [id number] [facility] [place] [phone] Protein mass conc 7.3 g/dL Normal 6.2-8.2 [facility] Comment on above: Performed By: #### C BCDIF, PT, GBCHEM, GBTSH, LIPA, MG, GBHCV, HAVIGM, HBCAB, HBSAG, RPR ####[facility] [id number] [place], [place] [phone] Lipaseon 04-28-2018 Lipase enzyme act/vol 941 U/L High 23-300 [facility] Comment on above: Performed By: #### C BCDIF, PT, GBCHEM, GBTSH, LIPA, MG, GBHCV, HAVIGM, HBCAB, HBSAG, RPR ####[facility] [id number] [place], [place] [phone] Phenobarbitalon 04-26-2018 Phenobarbital mass conc ug/mL Low 15.0-40.0 [facility] Comment on above: Performed By: #### C BCDIF, PT, GBCHEM, GBTSH, LIPA, MG, GBHCV, HAVIGM, HBCAB, HBSAG, RPR ####[facility] [id number] [place], [place] [phone] RPRon 04-25-2018 Reagin Ab RPR Ql (S) Nonreactive Normal Nonreactive [facility] Comment on above: Performed By: #### C BCDIF, PT, GBCHEM, GBTSH, LIPA, MG, GBHCV, HAVIGM, HBCAB, HBSAG, RPR ####[facility] [id number] [facility], [place] [phone] Urinalysison 04-25-2018 Bilirubin Negative Normal Negative [facility] Comment on above: Performed By: #### C BCDIF, PT, GBCHEM, GBTSH, LIPA, MG, GBHCV, HAVIGM, HBCAB, HBSAG, RPR ####[facility] [id number] [place], [place] [phone] Cast SEE NOTES Normal 0 [facility] Comment on above: Result Comment: >20H yaline Cast Performed By: #### C BCDIF, PT, GBCHEM, GBTSH, LIPA, MG, GBHCV, HAVIGM, HBCAB, HBSAG, RPR ####[facility] [id number] [facility], [place] [phone] Clarity Nom (U) Cloudy Critically abnormal Clear [facility] Comment on above: Performed By: #### C BCDIF, PT, GBCHEM, GBTSH, LIPA, MG, GBHCV, HAVIGM, HBCAB, HBSAG, RPR ####[facility] [id number] [facility], [place] [phone] Color Nom (U) Taylor Critically abnormal Yellow [facility] Comment on above: Performed By: #### C BCDIF, PT, GBCHEM, GBTSH, LIPA, MG, GBHCV, HAVIGM, HBCAB, HBSAG, RPR ####[facility] [id number] [facility], [place] [phone] Crystals SEE NOTES Normal 0 [facility] Comment on above: Result Comment: FewA morphous Performed By: #### C BCDIF, PT, GBCHEM, GBTSH, LIPA, MG, GBHCV, HAVIGM, HBCAB, HBSAG, RPR ####[facility] [id number] [facility], [place] [phone] Epithelial Cells Few Normal [facility] Comment on above: Result Comment: Squa mous Epithelial Cells Performed By: #### C BCDIF, PT, GBCHEM, GBTSH, LIPA, MG, GBHCV, HAVIGM, HBCAB, HBSAG, RPR ####[facility] [id number] [facility], [place] [phone] Glucose Negative Normal Negative [facility] Comment on above: Performed By: #### C BCDIF, PT, GBCHEM, GBTSH, LIPA, MG, GBHCV, HAVIGM, HBCAB, HBSAG, RPR ####[facility] [id number] [facility], [place] [phone] Hemoglobin/Blood Negative Normal Negative [facility] Comment on above: Performed By: #### C BCDIF, PT, GBCHEM, GBTSH, LIPA, MG, GBHCV, HAVIGM, HBCAB, HBSAG, RPR ####[facility] [id number] [facility], [phone] INR Coag RelTime (Bld) 0-3 Normal 0-3 [facility] Comment on above: Performed By: #### C BCDIF, PT, GBCHEM, GBTSH, LIPA, MG, GBHCV, HAVIGM, HBCAB, HBSAG, RPR ####[facility] [id number] [facility], [place] [phone] Ketone Trace Critically abnormal Negative [facility] Comment on above: Performed By: #### C BCDIF, PT, GBCHEM, GBTSH, LIPA, MG, GBHCV, HAVIGM, HBCAB, HBSAG, RPR ####[facility] [id number] [facility], [place] [phone] Leukest Negative Normal Negative [facility] Comment on above: Performed By: #### C BCDIF, PT, GBCHEM, GBTSH, LIPA, MG, GBHCV, HAVIGM, HBCAB, HBSAG, RPR ####[facility] [id number] [facility], [phone] Nitrites Negative Normal Negative [facility] Comment on above: Performed By: #### C BCDIF, PT, GBCHEM, GBTSH, LIPA, MG, GBHCV, HAVIGM, HBCAB, HBSAG, RPR ####[facility] [id number] [facility], [place] [phone] pH Test strip (U) 5.0 [pH] Normal 5-7 [facility] Comment on above: Performed By: #### C BCDIF, PT, GBCHEM, GBTSH, LIPA, MG, GBHCV, HAVIGM, HBCAB, HBSAG, RPR ####[facility] [id number] [place], [place] [phone] Protein mass conc 100 mg/dl Critically abnormal Negative [facility] Comment on above: Performed By: #### C BCDIF, PT, GBCHEM, GBTSH, LIPA, MG, GBHCV, HAVIGM, HBCAB, HBSAG, RPR ####[facility] [id number] [place], [place] [phone] Urine Alpesh Comment Many Normal [facility] Comment on above: Result Comment: MUCO US Performed By: #### C BCDIF, PT, GBCHEM, GBTSH, LIPA, MG, GBHCV, HAVIGM, HBCAB, HBSAG, RPR ####[facility] [id number] [place], [place] [phone] Urine Spec [place] 1.025 Normal 1.005-1.030 [facility] Comment on above: Performed By: #### C BCDIF, PT, GBCHEM, GBTSH, LIPA, MG, GBHCV, HAVIGM, HBCAB, HBSAG, RPR ####[facility] [id number] [place], [place] [phone] Urobilinogen 2.0 mg/dl High 0.0-1.0 [facility] Comment on above: Performed By: #### C BCDIF, PT, GBCHEM, GBTSH, LIPA, MG, GBHCV, HAVIGM, HBCAB, HBSAG, RPR ####[facility] [id number] [place], [place] [phone] WBC 0-5 Normal 0-5 [facility] Comment on above: Performed By: #### C BCDIF, PT, GBCHEM, GBTSH, LIPA, MG, GBHCV, HAVIGM, HBCAB, HBSAG, RPR ####[facility] [id number] [place], [place] [phone] CBCDIFon 12-12-2018 Abs Baso 0.02 k/uL Normal 0-0.2 [facility] Comment on above: Performed By: #### C BCDIF, PT, GBCHEM, GBTSH, LIPA, MG, GBHCV, HAVIGM, HBCAB, HBSAG, RPR ####[facility] [id number] [facility], [place] [phone] Abs [place] 1.23 k/uL High 0-0.8 [facility] Comment on above: Performed By: #### C BCDIF, PT, GBCHEM, GBTSH, LIPA, MG, GBHCV, HAVIGM, HBCAB, HBSAG, RPR ####[facility] [id number] [facility], [place] [phone] Abs Neut 7.41 k/uL Normal 1.8-7.7 [facility] Comment on above: Performed By: #### C BCDIF, PT, GBCHEM, GBTSH, LIPA, MG, GBHCV, HAVIGM, HBCAB, HBSAG, RPR ####[facility] [id number] [facility], [place] [phone] Basophils/100 WBC Auto (Bld) 0.2 % Normal 0-1 [facility] Comment on above: Performed By: #### C BCDIF, PT, GBCHEM, GBTSH, LIPA, MG, GBHCV, HAVIGM, HBCAB, HBSAG, RPR ####[facility] [id number] [place], [place] [phone] Eosinophils Auto #/vol (Bld) 0.38 10*3/uL Normal 0-0.4 [facility] Comment on above: Performed By: #### C BCDIF, PT, GBCHEM, GBTSH, LIPA, MG, GBHCV, HAVIGM, HBCAB, HBSAG, RPR ####[facility] [id number] [facility], [place] [phone] Eosinophils/100 WBC Auto (Bld) 3.3 % Normal 0-4 [facility] Comment on above: Performed By: #### C BCDIF, PT, GBCHEM, GBTSH, LIPA, MG, GBHCV, HAVIGM, HBCAB, HBSAG, RPR ####[facility] [id number] [place] [phone] Erythrocyte distribution width Auto Ratio (RBC) 14.6 % High 11.5-14.5 [facility] Comment on above: Performed By: #### C BCDIF, PT, GBCHEM, GBTSH, LIPA, MG, GBHCV, HAVIGM, HBCAB, HBSAG, RPR ####[facility] [id number] [place], [place] [phone] Hematocrit Auto Volume Fraction (Bld) 46.2 % Normal 41.0-53.0 [facility] Comment on above: Performed By: #### C BCDIF, PT, GBCHEM, GBTSH, LIPA, MG, GBHCV, HAVIGM, HBCAB, HBSAG, RPR ####[facility] Clinical Dps57740 [place] [phone] Hemoglobin mass conc (Bld) 16.2 g/dL Normal 13.5-17.5 [facility] Comment on above: Performed By: #### C BCDIF, PT, GBCHEM, GBTSH, LIPA, MG, GBHCV, HAVIGM, HBCAB, HBSAG, RPR ####[facility] Clinical [id number] [place] [phone] Immature Gran 0.30 % Normal 0-1.9 [facility] Comment on above: Performed By: #### C BCDIF, PT, GBCHEM, GBTSH, LIPA, MG, GBHCV, HAVIGM, HBCAB, HBSAG, RPR ####[facility] [id number] [place], [place] [phone] Lymphocytes Auto #/vol (Bld) 2.56 10*3/uL Normal 1.0-4.0 [facility] Comment on above: Performed By: #### C BCDIF, PT, GBCHEM, GBTSH, LIPA, MG, GBHCV, HAVIGM, HBCAB, HBSAG, RPR ####[facility] Clinical [id number] [place], [place] [phone] Lymphocytes/100 WBC Auto (Bld) 22.0 % Normal 22-44 [facility] Comment on above: Performed By: #### C BCDIF, PT, GBCHEM, GBTSH, LIPA, MG, GBHCV, HAVIGM, HBCAB, HBSAG, RPR ####[facility] [id number] [facility], [place] [phone] MCH Auto Entitic mass (RBC) 31.6 pG Normal 26-34 [facility] Comment on above: Performed By: #### C BCDIF, PT, GBCHEM, GBTSH, LIPA, MG, GBHCV, HAVIGM, HBCAB, HBSAG, RPR ####[facility] Clinical [id number] [place], [place] [phone] MCHC Auto mass conc (RBC) 35.1 g/dL Normal 31-37 [facility] Comment on above: Performed By: #### C BCDIF, PT, GBCHEM, GBTSH, LIPA, MG, GBHCV, HAVIGM, HBCAB, HBSAG, RPR ####[facility] [id number] [facility], [place] [phone] MCV Auto Entitic volume (RBC) 90.1 fL Normal 80-100 [facility] Comment on above: Performed By: #### C BCDIF, PT, GBCHEM, GBTSH, LIPA, MG, GBHCV, HAVIGM, HBCAB, HBSAG, RPR ####[facility] Clinical [id number] [place], [place] [phone] Monocytes/100 WBC Auto (Bld) 10.6 % Normal 4-12 [facility] Comment on above: Performed By: #### C BCDIF, PT, GBCHEM, GBTSH, LIPA, MG, GBHCV, HAVIGM, HBCAB, HBSAG, RPR ####[facility] Lng332[address] [place], [place] [phone] Neutrophils/100 WBC Auto (Bld) 63.6 % Normal 40-70 [facility] Comment on above: Performed By: #### C BCDIF, PT, GBCHEM, GBTSH, LIPA, MG, GBHCV, HAVIGM, HBCAB, HBSAG, RPR ####[facility] Clinical [id number] [facility] [place] [phone] NRBCs 0 /100 WBC Normal 0-0.9 [facility] Comment on above: Performed By: #### C BCDIF, PT, GBCHEM, GBTSH, LIPA, MG, GBHCV, HAVIGM, HBCAB, HBSAG, RPR ####[facility] Dpo56969 [facility] [place] [phone] Platelets Auto #/vol (Bld) 188 10*3/uL Normal 150-450 [facility] Comment on above: Performed By: #### C BCDIF, PT, GBCHEM, GBTSH, LIPA, MG, GBHCV, HAVIGM, HBCAB, HBSAG, RPR ####[facility] Llp53522 [facility], [place] [phone] RBC Auto #/vol (Bld) 5.13 10*6/uL Normal 4.50-5.90 [facility] Comment on above: Performed By: #### C BCDIF, PT, GBCHEM, GBTSH, LIPA, MG, GBHCV, HAVIGM, HBCAB, HBSAG, RPR ####[facility] Clinical Wuc43465 [facility], [place] [phone] WBC Auto #/vol (Bld) 11.63 10*3/uL High 4.5-11.0 [facility] Comment on above: Performed By: #### C BCDIF, PT, GBCHEM, GBTSH, LIPA, MG, GBHCV, HAVIGM, HBCAB, HBSAG, RPR ####[facility] Clinical [id number] [place], [place] [phone] [facility] Profon 2017 Albumin mass conc 5.0 g/dL Normal 3.5-5.0 [facility] Comment on above: Performed By: #### C BCDIF, PT, GBCHEM, GBTSH, LIPA, MG, GBHCV, HAVIGM, HBCAB, HBSAG, RPR ####[facility] [id number] [place], [place] [phone] Alkaline Phos 137 U/L High 38-125 [facility] Comment on above: Performed By: #### C BCDIF, PT, GBCHEM, GBTSH, LIPA, MG, GBHCV, HAVIGM, HBCAB, HBSAG, RPR ####[facility] Gyx00650 [place], [place] [phone] ALT enzyme act/vol 54 U/L Normal 21-72 [facility] Comment on above: Performed By: #### C BCDIF, PT, GBCHEM, GBTSH, LIPA, MG, GBHCV, HAVIGM, HBCAB, HBSAG, RPR ####[facility] Clinical Occ06797 [place], [place] [phone] Amylase enzyme act/vol 156 U/L High 30-110 [facility] Comment on above: Performed By: #### C BCDIF, PT, GBCHEM, GBTSH, LIPA, MG, GBHCV, HAVIGM, HBCAB, HBSAG, RPR ####[facility] Clinical Who35783 [place], [place] [phone] Anion gap 3 molar conc 18 mmol/L High 0-15 [facility] Comment on above: Performed By: #### C BCDIF, PT, GBCHEM, GBTSH, LIPA, MG, GBHCV, HAVIGM, HBCAB, HBSAG, RPR ####[facility] Clinical Rax67881 [place], [place] [phone] AST enzyme act/vol 102 U/L High 17-59 [facility] Comment on above: Performed By: #### C BCDIF, PT, GBCHEM, GBTSH, LIPA, MG, GBHCV, HAVIGM, HBCAB, HBSAG, RPR ####[facility] Clinical Ome69854 [place], [place] [phone] Bilirubin Ql (U) 1.5 mg/dL High 0.2-1.3 [facility] Comment on above: Performed By: #### C BCDIF, PT, GBCHEM, GBTSH, LIPA, MG, GBHCV, HAVIGM, HBCAB, HBSAG, RPR ####[facility] Clinical Nmy80631 [place], [place] [phone] Calcium mass conc 10.0 mg/dL Normal 8.4-10.2 [facility] Comment on above: Performed By: #### C BCDIF, PT, GBCHEM, GBTSH, LIPA, MG, GBHCV, HAVIGM, HBCAB, HBSAG, RPR ####[facility] Clinical Qpm04279 [place], [place] [phone] Chloride molar conc 91 mmol/L Low 98-107 [facility] Comment on above: Performed By: #### C BCDIF, PT, GBCHEM, GBTSH, LIPA, MG, GBHCV, HAVIGM, HBCAB, HBSAG, RPR ####[facility] [id number] [place], [place] [phone] Cholesterol mass conc 155 mg/dL Normal 100-199 [facility] Comment on above: Performed By: #### C BCDIF, PT, GBCHEM, GBTSH, LIPA, MG, GBHCV, HAVIGM, HBCAB, HBSAG, RPR ####[facility] Ixg54665 [place], [place] [phone] CO2 molar conc 27 mmol/L Normal 22-30 [facility] Comment on above: Performed By: #### C BCDIF, PT, GBCHEM, GBTSH, LIPA, MG, GBHCV, HAVIGM, HBCAB, HBSAG, RPR ####[facility] [id number] [facility], [place] [phone] Creatinine mass conc 1.47 mg/dL High 0.66-1.25 [facility] Comment on above: Performed By: #### C BCDIF, PT, GBCHEM, GBTSH, LIPA, MG, GBHCV, HAVIGM, HBCAB, HBSAG, RPR ####[facility] Clinical Lcu55835 [place], [place] [phone] eGFR Amer >60 Normal >60 [facility] Comment on above: Result Comment: MDRD calculation used for eGFR results. Performed By: #### C BCDIF, PT, GBCHEM, GBTSH, LIPA, MG, GBHCV, HAVIGM, HBCAB, HBSAG, RPR ####[facility] Clinical [id number] [facility], [place] [phone] eGFR non Am 53 mL/min/1.73 2 Low >60 [facility] Comment on above: Performed By: #### C BCDIF, PT, GBCHEM, GBTSH, LIPA, MG, GBHCV, HAVIGM, HBCAB, HBSAG, RPR ####[facility] Clinical Amk56595 [place], [place] [phone] Gamma glutamyl transferase [Enzymatic activity/volume] in Serum or Plasma 602 U/L High 15-73 [facility] Comment on above: Performed By: #### C BCDIF, PT, GBCHEM, GBTSH, LIPA, MG, GBHCV, HAVIGM, HBCAB, HBSAG, RPR ####[facility] Clinical [id number] [facility], [place] [phone] Glucose mass conc 98 mg/dL Normal 74-106 [facility] Comment on above: Performed By: #### C BCDIF, PT, GBCHEM, GBTSH, LIPA, MG, GBHCV, HAVIGM, HBCAB, HBSAG, RPR ####[facility] Clinical Vsc52846 [place], [place] [phone] LDH 550 U/L Normal 318-618 [facility] Comment on above: Performed By: #### C BCDIF, PT, GBCHEM, GBTSH, LIPA, MG, GBHCV, HAVIGM, HBCAB, HBSAG, RPR ####[facility] Clinical Zsu64435 [facility], [place] [phone] Phosphate mass conc 3.9 mg/dL Normal 2.5-4.5 [facility] Comment on above: Performed By: #### C BCDIF, PT, GBCHEM, GBTSH, LIPA, MG, GBHCV, HAVIGM, HBCAB, HBSAG, RPR ####[facility] Clinical Hfi21733 [place], [place] [phone] Potassium molar conc 3.7 mmol/L Normal 3.5-5.1 [facility] Comment on above: Performed By: #### C BCDIF, PT, GBCHEM, GBTSH, LIPA, MG, GBHCV, HAVIGM, HBCAB, HBSAG, RPR ####[facility] Clinical [id number] [place], [place] [phone] Protein mass conc 8.7 g/dL High 6.2-8.2 [facility] Comment on above: Performed By: #### C BCDIF, PT, GBCHEM, GBTSH, LIPA, MG, GBHCV, HAVIGM, HBCAB, HBSAG, RPR ####[facility] Clinical Kdr96514 [place], [place] [phone] Sodium molar conc 132 mmol/L Low 137-145 [facility] Comment on above: Performed By: #### C BCDIF, PT, GBCHEM, GBTSH, LIPA, MG, GBHCV, HAVIGM, HBCAB, HBSAG, RPR ####[facility] Clinical Eqv28154 [place], [place] [phone] Triglyceride mass conc 160 mg/dL High 35-150 [facility] Comment on above: Performed By: #### C BCDIF, PT, GBCHEM, GBTSH, LIPA, MG, GBHCV, HAVIGM, HBCAB, HBSAG, RPR ####[facility] Clinical Mez03991 [facility] [place] [phone] Urate mass conc 7.2 mg/dL Normal 3.5-8.5 [facility] Comment on above: Performed By: #### C BCDIF, PT, GBCHEM, GBTSH, LIPA, MG, GBHCV, HAVIGM, HBCAB, HBSAG, RPR ####[facility] Clinical Omo56554 [facility], [place] [phone] Urea nitrogen mass conc 15 mg/dL Normal 9-20 [facility] Comment on above: Performed By: #### C BCDIF, PT, GBCHEM, GBTSH, LIPA, MG, GBHCV, HAVIGM, HBCAB, HBSAG, RPR ####[facility] Clinical Rtd07068 [facility], [place] [phone] [facility] Hep C Abon 018 [facility] Hep C Ab Nonreactive Normal Nonreactive [facility] Comment on above: Performed By: #### C BCDIF, PT, GBCHEM, GBTSH, LIPA, MG, GBHCV, HAVIGM, HBCAB, HBSAG, RPR ####[facility] Clinical Ebi23292 [place], [place] [phone] [facility] TSHon 04-24-2018 Thyrotropin Qn 3.280 uU/mL Normal 0.465-4.680 [facility] Comment on above: Performed By: #### C BCDIF, PT, GBCHEM, GBTSH, LIPA, MG, GBHCV, HAVIGM, HBCAB, HBSAG, RPR ####[facility] Clinical [id number] [facility], [place] [phone] Hep A IgM Antibodyon 018 Hep A IgM Antibody Nonreactive Normal Nonreactive [facility] Comment on above: Performed By: #### C BCDIF, PT, GBCHEM, GBTSH, LIPA, MG, GBHCV, HAVIGM, HBCAB, HBSAG, RPR ####[facility] Clinical [id number] [facility], [place] [phone] Hep B Core Total Abon 2017 Hep B Core Total Ab Nonreactive Normal Nonreactive [facility] Comment on above: Performed By: #### C BCDIF, PT, GBCHEM, GBTSH, LIPA, MG, GBHCV, HAVIGM, HBCAB, HBSAG, RPR ####[facility] Icj12084 [facility], [place] [phone] Hep B Surf Antigenon 018 Hep B Surf Antigen Nonreactive Normal Nonreactive [facility] Comment on above: Performed By: #### C BCDIF, PT, GBCHEM, GBTSH, LIPA, MG, GBHCV, HAVIGM, HBCAB, HBSAG, RPR ####[facility] Jvi67916 [facility], [place] [phone] Lipaseon 04-24-2018 Lipase enzyme act/vol 1540 U/L High 23-300 [facility] Comment on above: Performed By: #### C BCDIF, PT, GBCHEM, GBTSH, LIPA, MG, GBHCV, HAVIGM, HBCAB, HBSAG, RPR ####[facility] Jae00023 [facility], [place] [phone] Magnesiumon 04-24-2018 Magnesium mass conc 2.0 mg/dL Normal 1.3-2.3 [facility] Comment on above: Performed By: #### C BCDIF, PT, GBCHEM, GBTSH, LIPA, MG, GBHCV, HAVIGM, HBCAB, HBSAG, RPR ####[facility] Clinical [id number] [facility], [place] [phone] Protimeon 04-24-2018 INR Coag RelTime (Bld) 1.0 {INR} Normal 0.6-1.1 [facility] Comment on above: Result Comment: The PT/INR [...] GBHCV, HAVIGM, HBCAB, HBSAG, RPR ####[facility] [id number] [place], [place] [phone] PT Sec 12.3 sec Normal 11.8-14.1 [facility] Comment on above: Performed By: #### C BCDIF, PT, GBCHEM, GBTSH, LIPA, MG, GBHCV, HAVIGM, HBCAB, HBSAG, RPR ####[facility] [id number] [place], [place] [phone] Vital Signs Date Time Vital Sign Value Performing Clinician Facility 06-29-2023 10:54-0500 Body temperature 97.9 [degF] MD Rylan Andrea Work Phone: [facility] 06-29-2023 10:54-0500 Body weight 69.85 kg MD Rylan Andrea Work Phone: [facility] 06-29-2023 10:54-0500 Diastolic blood pressure 88 mm[Hg] MD Rylan Andrea Work Phone: [facility] 06-29-2023 10:54-0500 Heart rate 88 /min MD Rylan Andrea Work Phone: [facility] 06-29-2023 10:54-0500 Respiratory rate 20 /min MD Rylan Andrea Work Phone: [facility] 06-29-2023 10:54-0500 SaO2% (BldA) [Mass fraction] 97 % MD Rylan Andrea Work Phone: [facility] 06-29-2023 10:54-0500 Systolic blood pressure 140 mm[Hg] MD Rylan Andrea Work Phone: [facility] 12-25-2022 11:05-0400 Body temperature 97.7 [degF] MD Rylan Andrea Work Phone: [facility] 12-25-2022 11:05-0400 Body weight 66.95 kg MD Rylan Andera Work Phone: [facility] 12-25-2022 11:05-0400 Diastolic blood pressure 85 mm[Hg] MD Rylan Andrea Work Phone: [facility] 12-25-2022 11:05-0400 Heart rate 94 /min MD Rylan Andrea Work Phone: [facility] 12-25-2022 11:05-0400 Respiratory rate 18 /min MD Rylan Andrea Work Phone: [facility] 12-25-2022 11:05-0400 SaO2% (BldA) [Mass fraction] 97 % MD Rylan Andrea Work Phone: [facility] 12-25-2022 11:05-0400 Systolic blood pressure 136 mm[Hg] MD Rylan Andrea Work Phone: [facility] 11-01-2022 10:41-0400 Body temperature 97.6 [degF] MD Rylan Andrea Work Phone: [facility] 11-01-2022 10:41-0400 Body weight 68.26 kg MD Rylan Andrea Work Phone: [facility] 11-01-2022 10:41-0400 Diastolic blood pressure 82 mm[Hg] MD Rylan Andrea Work Phone: [facility] 11-01-2022 10:41-0400 Heart rate 103 /min MD Rylan Andrea Work Phone: [facility] 11-01-2022 10:41-0400 Respiratory rate 18 /min MD Rylan Andrea Work Phone: [facility] 11-01-2022 10:41-0400 SaO2% (BldA) [Mass fraction] 99 % MD Rylan Andrea Work Phone: [facility] 11-01-2022 10:41-0400 Systolic blood pressure 121 mm[Hg] MD Rylan Andrea Work Phone: [facility] 10-26-2022 12:05-0400 Body height 182.88 cm MD Rylan Andrea Work Phone: [facility] 10-26-2022 12:05-0400 Body temperature 97.6 [degF] MD Rylan Andrea Work Phone: [facility] 10-26-2022 12:05-0400 Body weight 69 kg MD Rylan Andrea Work Phone: [facility] 10-26-2022 12:05-0400 Diastolic blood pressure 77 mm[Hg] MD Rylan Andrea Work Phone: [facility] 10-26-2022 12:05-0400 Heart rate 100 /min MD Rylan Andrea Work Phone: [facility] 10-26-2022 12:05-0400 Respiratory rate 20 /min MD Rylan Andrea Work Phone: [facility] 10-26-2022 12:05-0400 SaO2% (BldA) [Mass fraction] 98 % MD Rylan Andrea Work Phone: [facility] 10-26-2022 12:05-0400 Systolic blood pressure 120 mm[Hg] MD Rylan Andrea Work Phone: [facility] 09-19-2022 09:33-0400 Body weight 70.39 kg MD Rylan Andrea Work Phone: [facility] 09-19-2022 09:33-0400 Diastolic blood pressure 85 mm[Hg] MD Rylan Andrea Work Phone: [facility] 09-19-2022 09:33-0400 Heart rate 85 /min MD Rylan Andrea Work Phone: [facility] 09-19-2022 09:33-0400 Respiratory rate 20 /min MD Rylan Andrea Work Phone: [facility] 09-19-2022 09:33-0400 SaO2% (BldA) [Mass fraction] 97 % MD Rylan Andrea Work Phone: [facility] 09-19-2022 09:33-0400 Systolic blood pressure 128 mm[Hg] MD Rylan Andrea Work Phone: [facility] 09-04-2022 11:26-0400 Body temperature 98.6 [degF] MD Rylan Andrea Work Phone: [facility] 06-22-2022 13:07-0500 Body height 182.88 cm MD Rylan Andrea Work Phone: [facility] 06-22-2022 13:07-0500 Body temperature 98 [degF] MD Rylan Andrea Work Phone: [facility] 06-22-2022 13:07-0500 Body weight 73.2 kg MD Rylan Andrea Work Phone: [facility] 06-22-2022 13:07-0500 Diastolic blood pressure 88 mm[Hg] MD Rylan Andrea Work Phone: [facility] 06-22-2022 13:07-0500 Heart rate 112 /min MD Rylan Andrea Work Phone: [facility] 06-22-2022 13:07-0500 Respiratory rate 20 /min MD Rylan Andrea Work Phone: [facility] 06-22-2022 13:07-0500 SaO2% (BldA) [Mass fraction] 99 % MD Rylan Andrea Work Phone: [facility] 06-22-2022 13:07-0500 Systolic blood pressure 137 mm[Hg] MD Rylan Andrea Work Phone: [facility] 06-17-2022 12:00-0500 Body temperature 98.1 [degF] MD Rylan Andrea Work Phone: [facility] 06-17-2022 12:00-0500 Diastolic blood pressure 91 mm[Hg] MD Rylan Andrea Work Phone: [facility] 06-17-2022 12:00-0500 Heart rate 94 /min MD Rylan Andrea Work Phone: [facility] 06-17-2022 12:00-0500 Respiratory rate 20 /min MD Rylan Andrea Work Phone: [facility] 06-17-2022 12:00-0500 SaO2% (BldA) [Mass fraction] 97 % MD Rylan Andrea Work Phone: [facility] 06-17-2022 12:00-0500 Systolic blood pressure 142 mm[Hg] MD Rylan Andrea Work Phone: [facility] 06-16-2022 09:51-0500 Body height 182.88 cm MD Rylan Andrea Work Phone: [facility] 06-16-2022 09:51-0500 Body mass index (BMI) [Ratio] 20.2 kg/m2 MD Rylan Andrea Work Phone: [facility] 06-16-2022 09:51-0500 Body weight 67.9 kg MD Rylan Andrea Work Phone: [facility] 06-15-2022 12:00-0500 Body height 185.42 cm Rachid Chase Other [employer] Other 06-15-2022 12:00-0500 Body mass index (BMI) [Ratio] 19.63 kg/m2 Rachid Blandban Other [employer] Other 06-15-2022 12:00-0500 Body temperature 97 [degF] Rachid Bladnban Other [employer] Other 06-15-2022 12:00-0500 Body weight 67.5 kg Rachid Blandban Other [employer] Other 06-15-2022 12:00-0500 Diastolic blood pressure 82 mm[Hg] Rachid Blandban Other [employer] Other 06-15-2022 12:00-0500 Respiratory rate 20 /min Rachid Blandban Other [employer] Other 06-15-2022 12:00-0500 SaO2% (BldA) [Mass fraction] 98 % Rachid Chase Other [employer] Other 06-15-2022 12:00-0500 Systolic blood pressure 114 mm[Hg] Rachid Blandban Other [employer] Other 05-31-2022 15:30-0500 Body height 185.42 cm Rachid Blandban Other [employer] Other 05-31-2022 15:30-0500 Body mass index (BMI) [Ratio] 19.92 kg/m2 Rachid Blandban Other [employer] Other 05-31-2022 15:30-0500 Body temperature 97.6 [degF] aRchid Blandban Other [employer] Other 05-31-2022 15:30-0500 Body weight 68.49 kg Rachid Chase Other [employer] Other 05-31-2022 15:30-0500 Diastolic blood pressure 80 mm[Hg] Rachid Chase Other [employer] Other 05-31-2022 15:30-0500 Respiratory rate 20 /min Rachid Chase Other [employer] Other 05-31-2022 15:30-0500 SaO2% (BldA) [Mass fraction] 98 % Rachid Chase Other [employer] Other 05-31-2022 15:30-0500 Systolic blood pressure 122 mm[Hg] Rachid Chase Other [employer] Other 04-21-2022 09:50-0500 Diastolic blood pressure 74 mm[Hg] MD Rylan Andrea Work Phone: [facility] 04-21-2022 09:50-0500 Heart rate 80 /min MD Rylan Andrea Work Phone: [facility] 04-21-2022 09:50-0500 Respiratory rate 18 /min MD Rylan Andrea Work Phone: [facility] 04-21-2022 09:50-0500 SaO2% (BldA) [Mass fraction] 99 % MD Rylan Andrea Work Phone: [facility] 04-21-2022 09:50-0500 Systolic blood pressure 111 mm[Hg] MD Rylan Andrea Work Phone: [facility] 04-21-2022 08:21-0500 Body height 182.88 cm MD Rylan Andrea Work Phone: [facility] 04-21-2022 08:21-0500 Body weight 70.3 kg MD Rylan Andrea Work Phone: [facility] 04-18-2022 13:59-0500 Diastolic blood pressure 82 mm[Hg] MD Rylan Andrea Work Phone: [facility] 04-18-2022 13:59-0500 Heart rate 99 /min MD Rylan Andrea Work Phone: [facility] 04-18-2022 13:59-0500 Respiratory rate 20 /min MD Rylan Andrea Work Phone: [facility] 04-18-2022 13:59-0500 SaO2% (BldA) [Mass fraction] 99 % MD Rylan Andrea Work Phone: [facility] 04-18-2022 13:59-0500 Systolic blood pressure 117 mm[Hg] MD Rylan Andrea Work Phone: [facility] 04-18-2022 12:41-0500 Body height 185.42 cm MD Rylan Andrea Work Phone: [facility] 04-18-2022 12:41-0500 Body weight 72.12 kg MD Rylan Andrea Work Phone: [facility] 04-14-2022 11:23-0500 Body temperature 98.3 [degF] MD Rylan Andrea Work Phone: [facility] 04-14-2022 11:23-0500 Body weight 70.3 kg MD Rylan Andrea Work Phone: [facility] 04-14-2022 11:23-0500 Diastolic blood pressure 93 mm[Hg] MD Rylan Andrea Work Phone: [facility] 04-14-2022 11:23-0500 Heart rate 95 /min MD Rylan Andrea Work Phone: [facility] 04-14-2022 11:23-0500 Respiratory rate 20 /min MD Rylan Andrea Work Phone: [facility] 04-14-2022 11:23-0500 SaO2% (BldA) [Mass fraction] 100 % MD Rylan Andrea Work Phone: [facility] 04-14-2022 11:23-0500 Systolic blood pressure 130 mm[Hg] MD Rylan Andrea Work Phone: [facility] 04-11-2022 16:03-0500 Body temperature 97.5 [degF] MD Rylan Andrea Work Phone: [facility] 04-11-2022 16:03-0500 Diastolic blood pressure 88 mm[Hg] MD Rylan Andrea Work Phone: [facility] 04-11-2022 16:03-0500 Heart rate 89 /min MD Rylan Andrea Work Phone: [facility] 04-11-2022 16:03-0500 Respiratory rate 15 /min MD Rylan Andrea Work Phone: [facility] 04-11-2022 16:03-0500 SaO2% (BldA) [Mass fraction] 97 % MD Rylan Andrea Work Phone: [facility] 04-11-2022 16:03-0500 Systolic blood pressure 125 mm[Hg] MD Rylan Andrea Work Phone: [facility] 04-11-2022 05:07-0500 Body weight 67.7 kg MD Rylan Andrea Work Phone: [facility] 04-10-2022 15:56-0500 Body height 182.88 cm MD Rylan Andrea Work Phone: [facility] 04-10-2022 15:56-0500 Body temperature 98.2 [degF] MD Rylan Andrea Work Phone: [facility] 04-10-2022 15:56-0500 Body weight 66.7 kg MD Rylan Andrea Work Phone: [facility] 04-10-2022 15:56-0500 Diastolic blood pressure 99 mm[Hg] MD Rylan Andrea Work Phone: [facility] 04-10-2022 15:56-0500 Heart rate 99 /min MD Rylan Andrea Work Phone: [facility] 04-10-2022 15:56-0500 Respiratory rate 20 /min MD Rylan Andrea Work Phone: [facility] 04-10-2022 15:56-0500 SaO2% (BldA) [Mass fraction] 98 % MD Rylan Andrea Work Phone: [facility] 04-10-2022 15:56-0500 Systolic blood pressure 148 mm[Hg] MD Rylan Andrea Work Phone: [facility] 02-27-2022 14:35-0400 Body height 182.88 cm MD Rylan Andrea Work Phone: [facility] 02-27-2022 14:35-0400 Body temperature 97.7 [degF] MD Rylan Andrea Work Phone: [facility] 02-27-2022 14:35-0400 Body weight 70.35 kg MD Rylan Andrea Work Phone: [facility] 02-27-2022 14:35-0400 Diastolic blood pressure 90 mm[Hg] MD Rylan Andrea Work Phone: [facility] 02-27-2022 14:35-0400 Heart rate 80 /min MD Rylan Andrea Work Phone: [facility] 02-27-2022 14:35-0400 Respiratory rate 20 /min MD Rylan Andrea Work Phone: [facility] 02-27-2022 14:35-0400 SaO2% (BldA) [Mass fraction] 99 % MD Rylan Andrea Work Phone: [facility] 02-27-2022 14:35-0400 Systolic blood pressure 138 mm[Hg] MD Rylan Andrea Work Phone: [facility] 09-13-2021 16:00-0400 Body height 185.42 cm Anita Gascaw Other [employer] Other 09-13-2021 16:00-0400 Body mass index (BMI) [Ratio] 20.45 kg/m2 Anita Gascaw Other [employer] Other 09-13-2021 16:00-0400 Body temperature 99.4 [degF] Anita Lincoln Other [employer] Other 09-13-2021 16:00-0400 Body weight 70.31 kg Anita Lincoln Other [employer] Other 09-13-2021 16:00-0400 Diastolic blood pressure 82 mm[Hg] Anita Lincoln Other [employer] Other 09-13-2021 16:00-0400 Respiratory rate 18 /min Anita Lincoln Other [employer] Other 09-13-2021 16:00-0400 SaO2% (BldA) [Mass fraction] 97 % Anita Gascaw Other [employer] Other 09-13-2021 16:00-0400 Systolic blood pressure 160 mm[Hg] Anita Salazar Other [employer] Other 09-08-2021 10:09-0400 Diastolic blood pressure 78 mm[Hg] Rylan Andrea Work Phone: [address] Work Phone: 09-08-2021 10:09-0400 Systolic blood pressure 118 mm[Hg] Rylan [employer] Work Phone: [facility] DO Work Phone: 09-08-2021 10:05-0400 Body height 182.88 cm Rylan [employer] Work Phone: [facility] DO Work Phone: 09-08-2021 10:05-0400 Body mass index (BMI) [Ratio] 21.16 kg/m2 Rylan A [employer] Work Phone: [facility] DO Work Phone: 09-08-2021 10:05-0400 Body surface area Derived from formula 1.92 m2 Rylan [employer] Work Phone: [facility] DO Work Phone: 09-08-2021 10:05-0400 Body weight 70.76 kg Rylan A [employer] Work Phone: [facility] DO Work Phone: 09-08-2021 10:05-0400 Diastolic blood pressure 76 mm[Hg] Rylan [employer] Work Phone: [facility] DO Work Phone: 09-08-2021 10:05-0400 Heart rate 96 /min Rylan [employer] Work Phone: [facility] DO Work Phone: 09-08-2021 10:05-0400 Systolic blood pressure 120 mm[Hg] Rylan [employer] Work Phone: [facility] DO Work Phone: 09-08-2021 10:05-0400 20 1 Rylan Flaherty Emre Work Phone: [facility] DO Work Phone: Comment on above: PHQ-9 TS Encounters Encounter Date Encounter Type Care Provider Facility Start: 01-21-2024 End: 01-21-2024 ambulatory MARILU WARCHOL Not Available Start: 01-15-2024 End: 01-15-2024 ambulatory MARILU WARCHOL Not Available Start: 01-11-2024 ambulatory Manpreet BOWENSCatarina Facility:[facility] Start: 01-10-2024 End: 01-10-2024 ambulatory KAROL JAEMS Not Available Start: 01-09-2024 End: 01-09-2024 ambulatory Manpreet Norton HARPER Facility:[id number] Start: 12-25-2023 End: 12-25-2023 ambulatory RYLAN ANDREA Not Available Start: 12-03-2023 End: 12-03-2023 ambulatory MARILU WARCHOL Not Available Start: 11-12-2023 End: 11-12-2023 ambulatory MARILU WARCHOL Not Available Start: 10-31-2023 End: 10-31-2023 ambulatory FLORINDA MONK Not Available Start: 10-17-2023 ambulatory yRlan Andrea Facility:[facility] Start: 10-04-2023 End: 10-04-2023 ambulatory MARILU WARCHOL Not Available Start: 09-19-2023 End: 09-19-2023 ambulatory MARILU WARCHOL Not Available Start: 09-11-2023 ambulatory RYLAN ANDREA [facility] Start: 09-11-2023 End: 09-11-2023 ambulatory MARILU WARCHOL Not Available Start: 08-16-2023 End: 08-16-2023 ambulatory RYLAN Krystina ANDREA Not Available Start: 06-29-2023 End: 06-29-2023 ambulatory MD Rylan Andrea Work Phone: [facility] Work Phone: Start: 06-29-2023 End: 06-29-2023 Patient encounter procedure MD Rylan Andrea Work Phone: [facility] Work Phone: Start: 06-29-2023 Registered Recurring MD Rylan Andrea Work Phone: [facility] Acute Work Phone: Start: 06-25-2023 External Result Encounter Estela Rosales Blainelauren DO Work Phone: [facility] Department Unsolicited [...] patient visit MD Rylan Andrea Work Phone: [facility]-Emergency Room Work Phone: Start: 10-26-2022 Registered Recurring MD Rylan Andrea Work Phone: [facility] Work Phone: Start: 10-18-2022 End: 10-18-2022 ambulatory MD Rylan Andrea Work Phone: [facility] Work Phone: Start: 10-18-2022 End: 10-18-2022 Patient encounter procedure MD Rylan Andrea Work Phone: [facility]-XRay [facility] Work Phone: Start: 10-10-2022 End: 10-10-[address] RYLAN ANDREA Facility:[facility] Start: 10-03-2022 End: 10-03-[address] RYLAN ANDREA Facility:[facility] Start: 09-19-2022 End: 09-19-2022 ambulatory MD Rylan Andrea Work Phone: [facility] Work Phone: Start: 09-19-2022 End: 09-19-2022 Registered Recurring MD Rylan Andrea Work Phone: [facility] Work Phone: Start: 09-19-2022 Registered Recurring MD Rylan Andrea Work Phone: [facility] Work Phone: Start: 09-11-2022 End: 09-11-2022 [...] Registered Recurring MD Rylan Andrea Work Phone: [facility]Cancer [facility] Work Phone: Start: 06-18-2022 End: 06-18-[address] JESSE RAMOS Facility:[facility]1 Start: 06-16-2022 End: 06-17-2022 Admission to same day surgery center MD Rylan Andrea Work Phone: [facility]-Surgery Center [place] Start: 06-15-2022 Office outpatient vi sit 25 minutes Kamjeramy Rena [facility] Start: 06-15-2022 End: 06-15-2022 ambulatory MD Rylan Andrea Work Phone: [facility] Work Phone: Start: 06-15-2022 End: 06-15-2022 Patient encounter procedure MD Rylan Andrea Work Phone: [facility]-Surgical Testing Work Phone: Start: 06-01-2022 End: 06-01-2022 ambulatory MD Rylan Andrea Work Phone: [facility] Work Phone: Start: 06-01-2022 End: 06-01-2022 Patient encounter procedure MD Rylan Andrea Work Phone: [facility]-CT Scan [place] Work Phone: Start: 05-31-2022 End: 05-31-2022 ambulatory Celsojeramy Chase Other [employer] Other Start: 05-31-2022 Office outpatient ne w 45 minutes Kamal Chaban [facility] Start: 04-21-2022 End: 04-21-2022 Admission to same day surgery center MD Rylan Andrea Work Phone: [facility]-Ultrasound [place] Start: 04-21-2022 End: 04-21-2022 ambulatory MD Rylan Andrea Work Phone: [facility] Work Phone: Start: 04-18-2022 End: 04-18-2022 Admission to same day surgery center MD Rylan Andrea Work Phone: [facility]-Ultrasound [place] Start: 04-18-2022 End: 04-18-2022 ambulatory MD Rylan Andrea Work Phone: [facility] Work Phone: Start: 04-14-2022 End: 04-14-2022 ambulatory MD Rylan Andrea Work Phone: [facility] Work Phone: Start: 04-14-2022 End: 04-14-2022 Registered Recurring MD Rylan Andrea Work Phone: [facility]-Cancer Center Start: 04-14-2022 Registered Recurring MD Rylan Andrea Work Phone: [facility] Start: 04-10-2022 End: 04-11-2022 Evaluation and management of inpatient MD Rylan Andrea Work Phone: [facility]-3 [place] [facility] Start: 04-10-2022 observation encounter MD Rylan Andrea Work Phone: [facility] Work Phone: Start: 04-10-2022 Registered Recurring MD Rylan Andrea Work Phone: [facility]-Cancer Center Start: 02-27-2022 End: 02-27-2022 ambulatory MD Rylan Andrea Work Phone: [facility] Work Phone: Start: 02-27-2022 End: 02-27-2022 Registered Recurring MD Rylan Andrea Work Phone: [facility]Cancer Center Start: 11-29-2021 ambulatory Rylan Ortiz ity: Start: 11-23-2021 End: 11-24-[address] MARCE PAGAN Facility:[facility]1 Start: 09-13-2021 Chart Update Rylan Andrea Work Phone: [facility] 250 DO Work Phone: Start: 09-13-2021 End: 09-13-2021 ambulatory Anitaaylin Romeroraw Other [facility] [employer] Other Start: 09-13-2021 Office outpatient vi sit 25 minutes Anita Salazar [facility] Start: 09-09-2021 ambulatory Rylan Andrea Facil [id number] Start: 09-09-2021 [facility], Provider: Lukas Oliveira, Status: Pen, Time: 1:00 PM Rylan Andrea Work Phone: [facility] DO Work Phone: Start: 09-08-2021 Office consultation new/estab patient 80 min Rylan Andrea Work Phone: [facility] DO Work Phone: Start: 09-08-2021 ambulatory Estela Varma Facility: Start: 08-06-2020 End: 08-07-2020 Patient encounter procedure [facility] Start: 04-24-2018 End: 05-14-2018 Patient encounter procedure [facility] Krystina [facility] Procedures Date Procedure Procedure Detail Performing Clinician Start: 06-25-2023 Carcinoembryonic antigen cea Estela Varma DO Work Phone: Comment on above: Serial tumor marker results determined by assays using different manufacturers or methods may not be comparable. [facility] tie hacker and method: [employer] DXI, 2 SITE IMMUNOENZYMATIC SANDWICH ASSAY. Start: 06-25-2023 Positron emission to [facility] with computed tomography MD Rylan Andrea Work Phone: Start: 06-25-2023 Carcinoembryonic antigen cea Estela Varma DO Work Phone: Comment on above: Result Comment: Georges al tumor marker results determined by assays using different manufacturers or methods may not be comparable. [facility] tie hacker and method: [employer] DXI, 2 SITE IMMUNOENZYMATIC ?SANDWICH? ASSAY. PERFORMED BY: [facility] [place] [address] PATHOLOGIST BAD CLOTH CHECKER CATY DELCID M.D. Performed By: #### C BC, MARILU, LIPASE, FE and TIBC, CEA, T4F, TSH3, YUSUF, [id number], CMP #### [facility] [address] [place] [address] #### METH #### [facility] , Start: 06-25-2023 Complete blood count with white cell differential, automated Estela Varma DO Work Phone: Start: 06-25-2023 GLUCOSE POCT GLUCOMETERS Estela Connie Varma DO Work Phone: Start: 03-30-2023 Carcinoembryonic antigen cea Rylan Andrea Comment on above: Result Comment: PERF ORMED BY: [place] [address] PATHOLOGIST BAD CLOTH CHECKER CATY DELCID M.D. Performed By: #### C BC, MARILU, LIPASE, FE and TIBC, CEA, T4F, TSH3, YUSUF, [id number], CMP #### [facility] [address] [place] [address] #### METH #### [facility] , Start: 12-22-2022 [...] Phone: Start: 04-10-2022 Plain chest X-ray MD Katarian Andrea Work Phone: Start: 04-10-2022 Computed tomography [...] tomography MD Rylan Andrea Work Phone: Start: 04-07-2022 Computed tomography of abdomen and pelvis with [...] Screening for malign ant neoplasm of colon [facility] Start: 11-11-2023 Influenza vaccination Influenza Vacc ine (#1) [facility] Comment on above: Postponed from 01/12 (Patient Refused) Start: 07-10-2023 End: 07-10-2023 Patient encounter procedure 07/10/2023 1:40 PM EST Office Visit [facility] [address] [place] [address] Rylan Andrea MD [address] [place] [address] [facility] Start: 06-25-2023 [facility] Start: 12-11-2022 [facility] Start: 10-26-2022 Erythropoietin (EPO) [Units/volume] in Serum or Plasma [facility] Start: 06-17-2022 [facility] Start: 06-16-2022 Referral to clinical radiology special procedure tech [facility] Start: 04-21-2022 [facility] Start: 04-21-2022 Ultrasonic guidance for thoracentesis [facility] Start: 04-18-2022 [facility] Start: 04-18-2022 Ultrasonic guidance for thoracentesis [facility] Start: 04-14-2022 [facility] Start: 04-11-2022 [facility] Start: 04-11-2022 Troponin I.cardiac [Mass/volume] in Serum or Plasma by High sensitivity method [facility] Start: 04-10-2022 Referral to oncologist [facility] Start: 04-10-2022 Hospital admission [facility] Start: 04-10-2022 [facility] Start: 02-27-2022 [facility] Start: 11-29-2021 [facility], Provider: Lukas Oliveira, Status: Pen, Time: 11:10 AM [facility], Provider: Lukas Oliveira, Status: Pen, Time: 11:10 AM [facility] DO Work Phone: Start: 09-05-2021 [facility] Start: 08-22-2021 [facility] Start: 04-05-2021 [facility] Start: 02-01-2021 [facility] Start: 08-16-2020 [facility] Start: 08-05-2020 [facility] Start: 07-26-2020 [facility] Start: 07-06-2020 [facility] Start: 06-29-2020 [facility] Start: 06-14-2020 [facility] Start: 05-24-2020 [facility] Start: 05-03-2020 [facility] Start: 04-12-2020 [facility] Start: 04-12-2020 [facility] Start: 03-08-2020 [facility] Start: 02-24-2020 [facility] Start: 02-18-2020 [facility] Start: 02-16-2020 End: 02-16-2020 [facility] Start: 02-16-2020 [facility] Start: 02-10-2020 [facility] Start: 02-04-2020 End: 02-04-2020 [facility] Start: 01-28-2020 [facility] Start: 01-26-2020 [facility] Start: 01-26-2020 [facility] Start: 01-21-2020 [facility] Start: 01-21-2020 End: 01-21-2020 [facility] Start: 01-06-2020 [facility] Start: 01-05-2020 [facility] Start: 12-15-2019 [facility] Start: 11-24-2019 [facility] Start: 1965 Screening for malign ant neoplasm of colon [facility] Amylase [Enzymatic activity/volume] in Serum or Plasma Amylase Lab Routine 06/25/2023 7:57 AM EST [facility] Bacteria identified in Blood by Culture [facility] Blood culture for bacteria, including anaerobic screen Blood Culture [facility] Carcinoembryonic Ag [Mass/volume] in Serum or Plasma [facility] Comprehensive metabo lic 1999 panel - Serum or Plasma [facility] Comprehensive metabo lic 1999 panel - Serum or Plasma [facility] Comprehensive metabo lic 1999 panel - Serum or Plasma [facility] Comprehensive metabo lic 1999 panel - Serum or Plasma [facility] Comprehensive metabo lic 1999 panel - Serum or Plasma Comprehensive metabolic panel Lab Routine 06/25/2023 7:57 AM EST [facility] Work Phone: [facility] metabo lic 1999 panel - Serum or Plasma [facility] CT Abdomen and Pelvi s W contrast IV [facility] CT Abdomen and Pelvi s W contrast IV [facility] CT Abdomen and Pelvi s W contrast IV [facility] CT Chest W contrast IV [facility] CT Chest W contrast IV [facility] CT Chest W contrast IV [facility] Erythrocyte sediment ation rate by Photometric method [facility] Erythropoietin (EPO) [Units/volume] in Serum or Plasma [facility] Iron and Iron bindin g capacity panel - Serum or Plasma Iron and TIBC Lab Routine 06/25/2023 7:57 AM EST [facility] Lipase [Enzymatic activity/volume] in Serum or Plasma Lipase Lab Routine 06/25/2023 7:57 AM EST [facility] Methylmalonate [Moles/volume] in Serum or Plasma [facility] Patient Education [facility] Work Phone: Patient referral [facility] Work Phone: Thyrotropin [Units/v olume] in Serum or Plasma [facility] Ultrasonic guidance for thoracentesis [facility] Ultrasonic guidance for thoracentesis [facility] Immunizations Immunization Date Immunization Notes Care Provider Anjel bulmaroleonardo 09-01-2020 Pfizer-BioNTech COVID-19 Vacc 30 MCG/0.3ML Intramuscular Suspension Rylan A Andrea Work Phone: [facility] 07-30-2020 Pfizer-BioNTech COVID-19 Vacc 30 MCG/0.3ML Intramuscular Suspension Rylan A Andrea Work Phone: [facility] 03-24-2020 influenza, injectabl e, quadrivalent, preservative free Rylan A Andrea Work Phone: [facility] 03-24-2020 influenza virus vaccine, unspecified formulation Estela Varma DO Work Phone: [facility] 03-15-2020 influenza, injectabl e, quadrivalent, preservative free Rylan A Andrea Work Phone: [facility] Healthcare Payers Date Payer Category Payer Self-pay [id number] 2023 Private Health Insurance [id number] 2021 Medicaid [id number] 2021 Medicare MEDICARE MEDICAR E RAILROAD [id number] 2021-Present [address]AY[address] RAILROAD MEDICARE [address] [address] [place] [address] Medicare [id number] 2017 Private Health Insurance [id number] 1965 Unknown [id number] 2.16.840.1.665472.3.579.2. 173 1965 Unknown [id number] 2.16.840.1.876268.3.579.2. 356 1965 Unknown [id number] 2.16.840.1.119541.3.579.2. 356 1965 Unknown [id number] 2.16.840.1.295697.3.579.2. 356 1965 Unknown [id number] 2.16.840.1.407930.3.579.2. 593 1965 Unknown [id number] 2.16.840.1.236567.3.579.2. 593 1965 Unknown [id number] 2.16.840.1.258092.3.579.2. 593 1965 Unknown [id number] 2.16.840.1.588308.3.579.2. 593 1965 Unknown [id number] 2.16.840.1.666847.3.579.2. 593 1965 Unknown [id number] 2.16.840.1.378432.3.579.2. 593 1965 Unknown [id number] 2.16.840.1.121042.3.579.2. 593 1965 Unknown [id number] 2.16.840.1.006152.3.579.2. 593 1965 Unknown [id number] 2.16.840.1.924895.3.579.2. 593 1965 Unknown [id number] 2.16.840.1.117813.3.579.2. 1286 1965 Unknown [id number] 2.16.840.1.743107.3.579.2. 1286 1965 Unknown [id number] 2.16.840.1.296406.3.579.2. 1286 1965 Unknown [id number] 2.16.840.1.818086.3.579.2. 1286 1965 Unknown [id number] 2.16.840.1.602968.3.579.2. 1286 1965 Unknown [id number] 2.16.840.1.528572.3.579.2. 1259 1965 Unknown [id number] 2.16.840.1.189043.3.579.2. 9 1965 Unknown [id number] 2.16.840.1.863779.3.579.2. 1258 1965 Unknown [id number] 2.16.840.1.974310.3.579.2. 1258 1965 Unknown [id number] 2.16.840.1.441261.3.579.2. 1258 1965 Unknown [id number] 2.16.840.1.841649.3.579.2. 1258 1965 Unknown [id number] 2.16.840.1.431322.3.579.2. 1258 1965 Unknown [id number] 2.16.840.1.979192.3.579.2. 125 1965 Unknown [id number] 2.16.840.1.594702.3.579.2. 1258 1965 Unknown [id number] 2.16.840.1.439399.3.579.2. 9 1965 Unknown [id number] 2.16.840.1.349166.3.579.2. 1258 1965 Unknown [id number] 2.16.840.1.008516.3.579.2. 1258 1965 Unknown [id number] 2.16.840.1.856003.3.579.2. 727 1965 Unknown [id number] 2.16.840.1.359294.3.579.2. 727 1959 Medicaid [id number] 1959 Medicare [id number] 1959 Private Health Insurance [id number] Private Health Insurance [facility] [id number] Unknown Unknown [id number] 2.16.840.1.698977.19 Unknown [id number] 2.16.840.1.711890.3.579.2. 531 Social History Date Type Detail Facility Start: 04-12-2023 End: 04-13-2023 Occasional alcohol use Occasional alcohol use [facility] Comment on above: beer; medical marijuana ed ibles; quit 2020 1ppd; Start: 04-11-2023 End: 04-12-2023 Sex Assigned At [facility] Start: 02-27-2022 End: 09-04-2022 Tobacco smoking status NDIS Ex-smoker (finding) [facility] Start: 1965 Sex Assigned At Male F [facility] Start: 10-26-2022 End: 12-25-2022 Tobacco smoking status NDIS Never smoked tobacco (finding) [facility] Start: 04-12-2023 Tobacco smoking status [facility] Occasional tobacco smoker [facility] History of [...] Abdominal hernia surgical mesh, synthetic polymer, non-bioabsorbable ([id number] FDA Start: 05-10-2020 Insertion of central venous catheter (CVC) with subcutaneous port for chemotherapy Vascular port/catheter ()[id number] FDA Start: 11-26-2019 Goals Date Patient Goal Desired Activity /State Functional Status Date Assessment Result Facility 06-17-2022 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 [facility] Work Phone: 04-11-2022 Functional status Patient at [facility] Work Phone: 04-10-2022 Functional status Patient at [facility] Work Phone: 09-08-2021 PHQ-9 [id number] Severe (20-27) [facility] 250 DO Work Phone: Mental Status Date Assessment Result Facility 06-17-2022 Cognitive function Cognitive Sta tus Patient at Baseline [facility] Work Phone: 04-11-2022 Cognitive function Cognitive Sta tus Patient at Baseline [facility] Work Phone: 04-10-2022 Cognitive function Cognitive Sta tus Patient at Baseline [facility] Work Phone: Clinical Notes 11-18-2019 to 11-07-2022 Note Date & Type Note Facility 11-07-2022 Progress note Note Date/Time November 01, 2022 11:06[facility] [place] [address] Hem/Onc Follow Up Note - OP Signed with Addenda Patient: Kirill Echols MR#: [id number] : 1965 Acct:[id number] Age/Sex: 57 / M Type: REG RCR Copies to: MD Rylan Vega MD Timothy J Adamowicz, II, DO~ ADDENDUM1 Will initiate monthly B12 injections for B12 deficiency, as well as folic acid 1mg po daily for folate deficiency. Addendum Dictated By: ERINN Shane Addendum Signed By: 06/27/23 1150 Addendum Cosigned By: DD/ TD/TT: 11/07/22 Date [...] nothing really new going on. HPI: 54-year-old -Emirati gentleman history of smoking 40 pack years [...] overwhelming for recurrence. He lives alone in [place]. His children live in [place]. His left him 8 months ago and [...] and urinary tract. Otherwise, there is an [id number]-x-Dtzh on the left. The lungs demonstrate emphysematous [...] add on appointment after ER visit at [facility] on August 29, 2022 He went to [...] for coordination of care (as documented) and [id number] counseling of patient and/or family. [facility] - Medical History Medical History: Medical History (Last Reviewed 10/26/22 @ 11:57 by Hannah Gamboa, ARTHUR) Adverse reaction to LUIS inhibitor drug Anemia [...] 03/01/22 15:44 KB (Rec: 03/01/22 15:45 KB [id number]) Distress Screening Distress score of 4 or [...] % (Auto) 69.5, Lymph % (Auto) 15.0, [place] % (Auto) 12.1, Eos % (Auto) 2.6, Baso % (Auto) 0.8, Nucleat RBC Rel Count 0.2, Neut # (Auto) 4.1, Lymph # (Auto) 0.9 L, [place] # (Auto) 0.7, Eos # (Auto) 0.1, [...] <Electronically signed by ERINN Shane> 11/07/22 1149 [facility] Work Phone: 1(179) 789-327805-23-2023 Hospital Discharge instructionsAmbulatory Orders* Initiate Home Health Time Frame: 1 Day, Location: Determined By Patient * Oncology Histology Time Frame: 10/03/22, Location: Determined By Patient * Oncology Histology Time Frame: 10/17/22, Location: Determined By Patient * Oncology Histology Time Frame: 10/10/22, Location: Determined By Patient [facility] Work Phone: 1(304) 394-230105-09-2023 Progress note Author Estela Varma [facility] September 19, 2022 10:02am Note Date/Time September 19, 2022 9:50am [facility] [place] [address] Hem/Onc Follow Up Note - OP Signed Patient: Kirill Echols MR#: [id number] : 1965 Acct:[id number] Age/Sex: 57 / M Type: REG RCR [...] Weight loss Follow Up Instructions: f/u wth [employer] in 6 weeks, cbc, cmp b12, folate, [...] concerns voiced at this time. HPI: 54-year-old -Emirati gentleman history of smoking 40 pack years [...] overwhelming for recurrence. He lives alone in [place]. His children live in [place]. His left him 8 months ago and [...] and urinary tract. Otherwise, there is an Fhfwth-q-Pdci on the left. The lungs demonstrate emphysematous [...] add on appointment after ER visit at [facility] on August 29, 2022 He went to [...] for coordination of care (as documented) and opzn-up-wtul counseling of patient and/or family. [facility] - Medical History Medical History: Medical [...] 03/01/22 15:44 KB (Rec: 03/01/22 15:45 KB [id number]) Distress Screening Distress score of 4 or [...] by Estela Varma II, DO> 09/19/22 1002 [facility] Work Phone: 1(675) 339-411604-24-2023 Progress note Author Dixie Olivia [facility] September 04, 2022 12:17pm Note Date/Time September 04, 2022 12: 04pm [facility] [place] [address] Hem/Onc Follow Up Note - OP Signed Patient: Kirill Echols MR#: [id number] : 1965 Acct:[id number] Age/Sex: 57 / M Type: REG RCR Copies to: MD Rylan Vega MD~ Subjective Date/Time of Service: Date of Service: 09/04/2022 Time of Service: 11:56 Chief Complaint: Patient is here today for a follow up visit for small cell lung cancer. He went to [place] ER for chest pressure 08-27-[address] scan for review HPI: 54-year-old -Emirati gentleman history of smoking 40 pack years [...] overwhelming for recurrence. He lives alone in [place]. His children live in [place]. His left him 8 months ago and [...] and urinary tract. Otherwise, there is an Givczk-c-Tkmv on the left. The lungs demonstrate emphysematous [...] He is considering moving back down to [facility] where he is from. 02/27/22 he [...] add on appointment after ER visit at [facility] on August 29, 2022 He went to [...] Narrative: Residual and chronic left-sided chest complaints. [facility] - Medical History Medical History: Medical [...] (Last Reviewed 06/16/22 @ 19:33 by Jackie Fraga ANP-) Mother Colon cancer Diabetes mellitus, type [...] 03/01/22 15:44 KB (Rec: 03/01/22 15:45 KB [id number]) Distress Screening Distress score of 4 or [...] add on appointment after ER visit at [facility] on August 29, 2022 He went to [...] today to home health care nurse at [facility]. 3.) Follow up with Dr. [...] for coordination of care (as documented) and dmfm-uj-ihno counseling of patient and/or family. Dictated By: Dixie Olivia APRN DD/ 1156 Signed By: <Electronically signed by ERINN Olivia> 09/04/22 1217 [facility] Work Phone: 1([phone]) 401-972502-09-2023 Progress note Author Dixie Olivia [facility] June 22, 2022 2:24pm Note Date/Time June 22, 2022 2 :16pm [facility] [place] [address] Hem/Onc Follow Up Note - OP Signed Patient: Kirill Echols MR#: [id number] : 1965 Acct:[id number] Age/Sex: 57 / M Type: REG RCR Copies to: MD Rylan Vega MD~ Subjective Date/Time of Service: Date of Service: 06/22/2022 Time of Service: 14:09 Chief Complaint: Patient is here for a 2 month follow up with, had chest tube placed 06/16/2022. No concerns voiced at this time. HPI: 54-year-old -Emirati gentleman history of smoking 40 pack years [...] overwhelming for recurrence. He lives alone in [place]. His children live in [place]. His left him 8 months ago and [...] and urinary tract. Otherwise, there is an Qyomld-i-Fpzt on the left. The lungs demonstrate emphysematous [...] He is considering moving back down to [facility] where he is from. 02/27/22 he [...] diaphoresis. No orthostasis or dizziness or palpitations. [facility] - Medical History Medical History: Medical History (Last Updated 06/16/22 @ 20:08 by MAYI Cano) Adverse reaction to LUIS inhibitor drug Anemia [...] 03/01/22 15:44 KB (Rec: 03/01/22 15:45 KB [id number]) Distress Screening Distress score of 4 or [...] for coordination of care (as documented) and hmhf-hf-guki counseling of patient and/or family. Dictated By: Dixie Olivia APRN DD/ 1409 Signed By: <Electronically signed by ERINN Olivia> 06/22/22 1424 [facility] Work Phone: 1(645) 629-338602-02-2023 Evaluation note* Encounter Date Diagnosis Assessment Notes [...] cell carcinoma of lung (ICD-10 - C34.90) [employer] Other 01-18-2023 Evaluation note* Encounter Date Diagnosis Assessment Notes Treatment Notes Treatment Clinical Notes May, Small cell carcinoma of lung (ICD-10 - C34.90) Please let me know lung CT scan to review schedule thoracentesis if needed May, Chronic obstructive pulmonary disease, unspecified COPD type (ICD-10 - J44.9) May, Shortness of breath (ICD-10 - R06.02) May, Pleural effusion (ICD-10 - J90) [employer] Other 12-02-2022 Progress note Author Estela Varma [facility] April 14, 2022 12:02pm Note Date/Time April 14, 2022 1 1:50am [facility] [place] [address] Hem/Onc Follow Up Note - OP Signed Patient: Kirill Echols MR#: [id number] : 1965 Acct:[id number] Age/Sex: 56 / M Type: REG RCR [...] concerns voiced at this time. HPI: 54-year-old -Emirati gentleman history of smoking 40 pack years [...] overwhelming for recurrence. He lives alone in [place]. His children live in [place]. His left him 8 months ago and [...] and urinary tract. Otherwise, there is an Iyajik-a-Pksp on the left. The lungs demonstrate emphysematous [...] He is considering moving back down to [facility] where he is from. 02/27/22 he [...] for coordination of care (as documented) and esje-dx-lwfp counseling of patient and/or family. [facility] - Medical History Medical History: Medical [...] 03/01/22 15:44 KB (Rec: 03/01/22 15:45 KB [id number]) Distress Screening Distress score of 4 or [...] % (Auto) 71.4, Lymph % (Auto) 16.2, [place] % (Auto) 8.6, Eos % (Auto) 2.9, Baso % (Auto) 0.9, Neut # (Auto) 4.5, Lymph # (Auto) 1.0, [place] # (Auto) 0.5, Eos# (Auto) 0.2, Baso [...] by Estela Varma II, DO> 04/14/22 1202 [facility] Work Phone: 1([phone] 166-521810-17-2022 Progress note Author Estela Varma [facility] February 27, 2022 2:56pm Note Date/Time February 27, 2022 2 :51pm [facility] at [address] [place] [address] Hem/Onc Follow Up Note - OP Signed Patient: Kirill Echols MR#: [id number] : 1965 Acct:[id number] Age/Sex: 56 / M Type: REG RCR [...] for review. No concerns voiced. HPI: 54-year-old -Emirati gentleman history of smoking 40 pack years [...] overwhelming for recurrence. He lives alone in [place]. His children live in [place]. His left him 8 months ago and [...] and urinary tract. Otherwise, there is an Muijpk-i-Wqmj on the left. The lungs demonstrate emphysematous [...] He is considering moving back down to [facility] where he is from. 02/27/22 he [...] for coordination of care (as documented) and mlwz-np-ugnj counseling of patient and/or family. [facility] - Medical History Medical History: Medical [...] 09/14/21 14:56 KB (Rec: 09/14/21 14:59 KB [id number]) Distress Screening Distress score of 4 or more discussed Yes with patient? Distress screening follow up: Spoke with patient via phone. Patient is doing ok at this time. Recently had a heart cath which was negative. He is happpy that his scans are good. Dr. Perez is working on getting him into [facility]. - Lab Results Diagram of Most [...] by Estela Varma II, DO> 02/27/22 1456 [facility] Work Phone: [phone]) 922-766305-03-2022 Evaluation note* Encounter Date Diagnosis Assessment Notes [...] Dr. Andrea to discuss plan of care. [employer] Other 04-25-2022 Progress note Author Estela Valladareslauren [facility] September 05, 2021 6:32pm Note Date/Time September 05, 2021 12: 28pm [facility] [place] [address] Hem/Onc Follow Up Note - OP Signed Patient: Kirill Echols MR#: [id number] : 1965 Acct:[id number] Age/Sex: 56 / M Type: REG RCR [...] concerns voiced at this time. HPI: 54-year-old -Emirati gentleman history of smoking 40 pack years [...] overwhelming for recurrence. He lives alone in [place]. His children live in [place]. His left him 8 months ago and [...] and urinary tract. Otherwise, there is an Uqlxak-g-Arvs on the left. The lungs demonstrate emphysematous [...] He is considering moving back down to [facility] where he is from. - Physical [...] for coordination of care (as documented) and cndt-sk-hsjp counseling of patient and/or family. [facility] - Medical History Medical History: Medical [...] 02/02/21 13:22 KB (Rec: 02/02/21 13:23 KB [id number]) Distress Screening Distress score of 4 or [...] % (Auto) 69.0, Lymph % (Auto) 18.2, [place] % (Auto) 7.9, Eos % (Auto) 4.2, Baso % (Auto) 0.7, Neut # (Auto) 3.5, Lymph # (Auto) 0.9 L, [place] # (Auto) 0.4, Eos # (Auto) 0.2, [...] by Estela Varma II, DO> 09/05/21 1832 [facility] Work Phone: 1([phone]) [phone] Progress note Author Estela Varma [facility] August 22, 2021 3:19pm Note Date/Time August 22, 2021 2:5 3pm [place] [address] Hem/Onc Follow Up Note - OP Signed Patient: Kirill Echols MR#: [id number] : 1965 Acct:[id number] Age/Sex: 56 / M Type: REG RCR [...] been having shortness of breath HPI: 54-year-old -Emirati gentleman history of smoking 40 pack years [...] overwhelming for recurrence. He lives alone in [place]. His children live in [place]. His left him 8 months ago and [...] for coordination of care (as documented) and hiek-hw-rugt counseling of patient and/or family. [facility] - Medical History Medical History: Medical [...] 02/02/21 13:22 KB (Rec: 02/02/21 13:23 KB [id number]) Distress Screening Distress score of 4 or [...] % (Auto) 62.5, Lymph % (Auto) 20.1, [place] % (Auto) 11.9, Eos % (Auto) 4.8, Baso % (Auto) 0.7, Neut # (Auto) 3.0, Lymph # (Auto) 1.0, [place] # (Auto) 0.6, Eos # (Auto) 0.2, [...] signed by Estela Varma II, DO> 08/22/21 2506 [facility] Work Phone: 1([phone]) 574-923211-23-2021 Progress note Author George Ash [facility] April 05, 2021 12:34pm Note Date/Time April 05, 2021 12:28pm [facility] at [address] [address] Hem/Onc Follow Up Note - OP Signed Patient: Kirill Echols MR#: [id number] : 1965 Acct:[id number] Age/Sex: 55 / M Type: REG RCR [...] has seen cardiology and was evaluated in [place] including a stress test. Nothing ever came [...] diaphoresis. No orthostasis or dizziness or palpitations. [facility] - Medical History Medical History: Medical [...] 02/02/21 13:22 KB (Rec: 02/02/21 13:23 KB [id number]) Distress Screening Distress score of 4 or [...] % (Auto) 74.7, Lymph % (Auto) 11.7, [place] % (Auto) 10.3, Eos % (Auto) 2.5, Baso % (Auto) 0.8, Neut # (Auto) 6.1, Lymph # (Auto) 1.0, [place] # (Auto) 0.9H, Eos # (Auto) 0.2, [...] had extensive work-up in the past in [place] including stress test. He has seen cardiology. [...] for coordination of care (as documented) and pifu-bn-pjyi counseling of patient and/or family. Dictated By: George Ash MD DD/ 1227 Signed By: <Electronically signed by MD George Ash> 04/05/21 1234 [facility] Work Phone: 1([phone]) 739-329109-28-2021 Progress note Author George Ash [facility] February 08, 2021 11:42am Note Date/Time February 08, 2021 11:41am [facility] [place] [address] Hem/Onc Follow Up Note - OP Signed Patient: Kirill Echols MR#: [id number] : 1965 Acct:[id number] Age/Sex: 55 / M Type: REG RCR [...] & no additional complaints except as documented [facility] - Medical History Medical History: Medical [...] for coordination of care (as documented) and fnyb-au-gnpa counseling of patient and/or family. Dictated By: George Ash MD DD/ 1140 Signed By: <Electronically signed by MD George Ash> 02/08/21 1142 [facility] Work Phone: 1([phone] Progress note Author George Ash [facility] February 01, 2021 11:20am Note Date/Time February 01, 2021 11:19am [facility] [place] [address] Hem/Onc Follow Up Note - OP Signed Patient: Kirill Echols MR#: [id number] : 1965 Acct:[id number] Age/Sex: 55 / M Type: REG RCR Copies to: MD Rylan Vega MD~ Subjective Date/Time of Service: Date of Service: 02/01/2021 Time of Service: 11:16 Chief Complaint: Patient is here today d/t pain and numbness left side of chest radiates to back. He has been to [facility] and [facility], He went to his family doctor [...] % (Auto) 76.8, Lymph % (Auto) 13.5, [place] % (Auto) 7.5, Eos % (Auto) 1.4, Baso % (Auto) 0.8, Neut # (Auto) 5.1, Lymph # (Auto) 0.9 L, [place] # (Auto) 0.5, Eos # (Auto) 0.1, [...] for coordination of care (as documented) and vgmz-oj-nyxf counseling of patient and/or family. Dictated By: George Ash MD DD/ 1116 Signed By: <Electronically signed by MD George Ash> 02/01/21 1120 [facility] Work Phone: [phone]) [phone] Progress note Author George Ash [facility] December 07, 2020 11:02am Note Date/Time December 07, 2020 10:4 0am [facility] [place] [address] Hem/Onc Follow Up Note - OP Signed Patient: Kirill Echols MR#: [id number] : 1965 Acct:[id number] Age/Sex: 55 / M Type: REG RCR [...] with RIGHT supraclavicular region. These may be agency sales representative of metastatic lymph nodes. There is [...] % (Auto) 71.8, Lymph % (Auto) 12.7, [place] % (Auto) 10.8, Eos % (Auto)3.9, Baso % (Auto) 0.8, Neut # (Auto) 4.8, Lymph # (Auto) 0.9 L, [place] # (Auto) 0.7, Eos # (Auto) 0.3, [...] for coordination of care (as documented) and qfyd-na-tixu counseling of patient and/or family. Dictated By: George Ash MD DD/ 1039 Signed By: <Electronically signed by MD George Ash> 12/07/20 1102 [facility] Work Phone: [phone]) [phone] Progress note Author Santhosh Chan [facility] September 09, 2020 11:30am Note Date/Time September 09, 2020 11: 21am [facility] [place] [address] Hem/Onc Follow Up Note - OP Signed Patient: Kirill Echols MR#: [id number] : 1965 Acct:[id number] Age/Sex: 55 / M Type: REG RCR [...] for coordination of care (as documented) and fjsj-nr-dnir counseling of patient and/or family. Dictated By: Santhosh Chan MD DD/ 1118 Signed By: <Electronically signed by Santhosh Chan MD> 09/09/20 1130 [facility] Work Phone: 1(108) 243-529804-22-2021 Progress note Author Santhosh Chan [facility] September 02, 2020 11:55am Note Date/Time September 02, 2020 11: 53am [facility] [place] [address] Hem/Onc Follow Up Note - OP Signed Patient: Kirill Echols MR#: [id number] : 1965 Acct:[id number] Age/Sex: 55 / M Type: REG RCR [...] for coordination of care (as documented) and tucx-ja-aktw counseling of patient and/or family. Dictated By: Santhosh Chan MD DD/ 50 Signed By: <Electronically signed by Santhosh Chan MD> 09/02/20 1155 [facility] Work Phone: [phone] Progress note Author Santhosh Chan [facility] July 06, 2020 1:19pm Note Date/Time July 06, 2020 1:17pm [facility] at [address] [address] Hem/Onc Follow Up Note - OP Signed Patient: Kirill Echols MR#: [id number] : 1965 Acct:[id number] Age/Sex: 55 / M Type: REG RCR [...] & no additional complaints except as documented [facility] - Medical History Medical History: Medical [...] % (Auto) 65.3, Lymph % (Auto) 17.0, [place] % (Auto) 13.4, Eos % (Auto) 3.8, Baso % (Auto) 0.5, Neut # (Auto) 2.9, Lymph # (Auto) 0.7 L, [place] # (Auto) 0.6, Eos # (Auto) 0.2, [...] the process of transitioning her practice to [facility]. (4) Anxiety - Time with Patient Time Spent with Patient (Follow Up Visit): 25 minutes, 35 minutes Coordination of Care & Counseling Time: Greater than 50% of time spent with patient was for coordination of care (as documented) and zgvx-wz-tzta counseling of patient and/or family. Dictated By: Santhosh Chan MD DD/ 131 Signed By: <Electronically signed by Santhosh Chan MD> 07/06/20 1319 [facility] Work Phone: [phone]) 366-252202-02-2021 Progress note Author Santhosh Chan [facility] June 15, 2020 4:23pm Note Date/Time June 15, 2020 3 :28pm [facility] [place] [address] Hem/Onc Follow Up Note - OP Signed Patient: Kirill Echols MR#: [id number] : 1965 Acct:[id number] Age/Sex: 55 / M Type: REG RCR [...] & no additional complaints except as documented [facility] - Medical History Medical History: Medical [...] % (Auto) 57.8, Lymph % (Auto) 19.4, [place] % (Auto) 16.6, Eos % (Auto) 5.5, Baso % (Auto) 0.7, Neut # (Auto) 2.1, Lymph # (Auto) 0.7 L, [place] # (Auto) 0.6, Eos # (Auto) 0.2, [...] the process of transitioning her practice to [facility]. -OARRS reviewed, no concern. Refill prescription of 2 weeks of oxycodone IR 10 mg (down from 15 mg)x56 provided today (taken 6-hour as needed). (3) Anxiety - Time with Patient Time Spent with Patient (Follow Up Visit): 35 minutes Coordination of Care & Counseling Time: Greater than 50% of time spent with patient was for coordination of care (as documented) and tyvb-dv-dmic counseling of patient and/or family. Dictated By: Santhosh Chan MD DD/ 1528 Signed By: <Electronically signed by Santhosh Chan MD> 06/15/20 1623 [facility] Work Phone: [phone] Progress note Author George Ash [facility] April 06, 2020 3:03pm Note Date/Time April 06, 2020 3:00pm [facility] [place] [address] Hem/Onc Follow Up Note - OP Signed Patient: Kirill Echols MR#: [id number] : 1965 Acct:[id number] Age/Sex: 54 / M Type: [facility] RCR Copies to: MD Rylan Vega MD~ [...] PET scan. Patient: Kirill Echols MR#: [id number] : 1965 Acct:[id number] Age/Sex: 54 / M ADM Date: 0 Loc: XT Room: Type: [facility] RCR Attending Dr: George Ash MD Ordering Provider: George Ash MD Date of Service: 03/23/20 CT/CT chest w con: restaging,C34.90 ([id number]) CT/CT abdomen pelvis w con: restaging,C34.90 Copies [...] proximal great vessels. Patient has a left-sided Qcsqzn-h-Uqab catheter. There is continued ill-defined soft tissue [...] the findings below: Patient: Kirill Echols MR#: [id number] : 1965 Acct:[id number] Age/Sex: 54 / M ADM Date: 0 Loc: Room: Type: [facility] Attending Dr: Varghese Duval MD Ordering [...] with RIGHT supraclavicular region. These may be agency sales representative of metastatic lymph nodes. 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 [facility] - Medical History Medical History: Medical [...] for coordination of care (as documented) and hoqb-pv-wrlu counseling of patient and/or family. Dictated By: George Ash MD DD/ 8794 Signed By: <Electronically signed by MD George Ash> 04/06/20 3716 [facility] Work Phone: [phone]) [phone] Progress note Author George Ash [facility] March 02, 2020 11:39am Note Date/Time March 02, 2020 1 1:38am [facility] at [address] [address] Hem/Onc Follow Up Note - OP Signed Patient: Kirill Echols MR#: [id number] : 1965 Acct:[id number] Age/Sex: 54 / M Type: REG R [...] the findings below: Patient: Kirill Echols MR#: [id number] : 1965 Acct:[id number] Age/Sex: 54 / M ADM Date: 0 Loc: Room: Type: [facility] Attending Dr: Varghese Duval MD Ordering [...] with RIGHT supraclavicular region. These may be agency sales representative of metastatic lymph nodes. 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 [facility] - Medical History Medical History: Medical [...] Neut % (Auto)79.5, Lymph % (Auto) 9.8, [place] % (Auto) 8.4, Eos % (Auto) 1.7, Baso % (Auto) 0.6, Neut # (Auto) 6.1, Lymph # (Auto) 0.8 L, [place] # (Auto) 0.6, Eos # (Auto) 0.1, [...] % (Auto) N/A, Lymph % (Auto) N/A, [place] % (Auto) N/A, Eos % (Auto) N/A, Baso % (Auto) N/A, Neut # (Auto) N/A, Lymph # (Auto) N/A, [place] # (Auto) N/A, Eos # (Auto) N/A, [...] for coordination of care (as documented) and jrmf-eo-nulq counseling of patient and/or family. 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 He has chronic [...] <Electronically signed by Leoncio Kowalski MD> 02/25/20 1553 [facility] Work Phone: [phone] Progress note Author George Ash [facility] February 10, 2020 1:23pm Note Date/Time February 10, 2020 1:20pm [facility] [place] [address] Hem/Onc Follow Up Note - OP Signed Patient: Kirill Echols MR#: [id number] : 1965 Acct:[id number] Age/Sex: 54 / M Type: REG RCR [...] the findings below: Patient: Kirill Echols MR#: [id number] : 1965 Acct:[id number] Age/Sex: 54 / M ADM Date: 0 Loc: PE Room: Type: [facility] Attending Dr: Varghese Duval MD Ordering [...] with RIGHT supraclavicular region. These may be agency sales representative of metastatic lymph nodes. There is [...] Franklin Gomes M.D.10/31/2019 2:44 PM Dictation Location: [facility] The patient was seen by Dr. James and evaluated by Dr. Duval. 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 [facility] - Medical History Medical History: Medical [...] % (Auto) 71.8, Lymph % (Auto) 16.0, [place] % (Auto) 10.5, Eos % (Auto) 0.9, Baso % (Auto) 0.8, Neut # (Auto) 4.8, Lymph # (Auto) 1.1, [place] # (Auto) 0.7, Eos # (Auto) 0.1, Baso # (Auto) 0.1, Nucleated RBC % (auto) 0.1 02/04/20 08:35: WBC 13.5 H, Corrected WBC 13.5 H, RBC 3.87 L, Hgb 12.3 L, Hct 38.1 L, MCV 98.6, MCH 31.7, MCHC 32.2 L, RDW 21.3 H, Plt Count 264, MPV 7.4, Neut % (Auto) 72.3, Lymph % (Auto) 7.8, [place] % (Auto) 18.7, Eos % (Auto) 0.3, Baso % (Auto) 0.9, Neut # (Auto) 9.7 H, Lymph # (Auto) 1.1, [place] # (Auto) 2.5 H,Eos # (Auto) 0.0, [...] for coordination of care (as documented) and bxky-ih-olws counseling of patient and/or family. Dictated By: George Ash MD DD/ 1319 Signed By: <Electronically signed by MD George Ash> 02/10/20 132 [facility] Work Phone: [phone]) [phone] Progress note Author George Ash [facility] January 20, 2020 11:30am Note Date/Time January 20, 2020 11:28am [facility] [place] [address] Hem/Onc Follow Up Note - OP Signed Patient: Kirill Echols MR#: [id number] : 1965 Acct:[id number] Age/Sex: 54 / M Type: REG RCR [...] I did add today. [facility] hospice is following him now for palliative pain control and this is clearly better. He is off of steroids. His synovitis and arthritis have resolved. 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 Port-A-Cath in place Small cell lung cancer - Surgical History Surgical History: Surgical History (Last Reviewed 12/03/19 @ 13:40 by Marliu Lowry MD) H/O vasectomy H/O wrist surgery [...] for coordination of care (as documented) and tybm-cc-dlga counseling of patient and/or family. Dictated By: George Ash MD DD/ 1127 Signed By: <Electronically signed by MD George Ash> 01/20/20 1130 [facility] Work Phone: [phone] Progress note Author George Ash [facility] December 30, 2019 10:35am Note Date/Time December 30, 2019 10 :01am [facility] [address] Hem/Onc Follow Up Note - OP Signed Patient: Kirill Echols MR#: [id number] : 1965 Acct:[id number] Age/Sex: 54 / M Type: REG RCR [...] I have instructed him to get some bvat-ggc-qsucovd Prilosec for this. He has some type [...] the findings below: Patient: Kirill Echols MR#: [id number] : 1965 Acct:[id number] Age/Sex: 54 / M ADM Date: 0 Loc: Room: Type: [facility] Attending Dr: Varghese Duval MD Ordering [...] with RIGHT supraclavicular region. These may be agency sales representative of metastatic lymph nodes. There is [...] Franklin Gomes M.D.10/31/2019 2:44 PM Dictation Location: [facility] The patient was seen by Dr. James and evaluated by Dr. Duval. 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 [facility] - Medical History Medical History: Medical [...] % (Auto) N/A, Lymph % (Auto) N/A, [place] % (Auto) N/A, Eos % (Auto) N/A, Baso % (Auto) N/A, Neut # (Auto) N/A, Lymph # (Auto) N/A, [place] # (Auto) N/A, Eos # (Auto) N/A, [...] for coordination of care (as documented) and lxrl-kh-wvjc counseling of patient and/or family. Dictated By: George Ash MD DD/ 0959 Signed By: <Electronically signed by MD George Ash> 12/30/19 1035 [facility] Work Phone: [phone] Progress note Author George Ash [facility] December 23, 2019 10:25am Note Date/Time December 23, 2019 10 :18am [facility] [place] [address] Hem/Onc Follow Up Note - OP Signed Patient: Kirill Echols MR#: [id number] : 1965 Acct:[id number] Age/Sex: 54 / M Type: REG RCR [...] the findings below: Patient: Kirill Echols MR#: [id number] : 1965 Acct:[id number] Age/Sex: 54 / M ADM Date: 0 Loc: Room: Type: [facility] Attending Dr: Varghese Duval MD Ordering [...] with RIGHT supraclavicular region. These may be agency sales representative of metastatic lymph nodes. There is [...] Franklin Gomes M.D.10/31/2019 2:44 PM Dictation Location: [facility] The patient was seen by Dr. James and evaluated by Dr. Duval. 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 [facility] - Medical History Medical History: Medical [...] for coordination of care (as documented) and pmql-kv-jvlm counseling of patient and/or family. Dictated By: George Ash MD DD/ 1015 Signed By: <Electronically signed by MD George Ash> 12/23/19 1025 [facility] Work Phone: [phone] Progress note Author George Ash [facility] [place] 4th, 2020 11:08am Note Date/Time December 16, 2019 11: 01am [facility] [place] [address] Hem/Onc Follow Up Note - OP Signed Patient: Kirill Echols MR#: [id number] : 1965 Acct:[id number] Age/Sex: 54 / M Type: REG RCR [...] the findings below: Patient: Kirill Echols MR#: [id number] : 1965 Acct:[id number] Age/Sex: 54 / M ADM Date: 0 Loc: Room: Type[facility] Attending Dr: Varghese Duval MD Ordering Provider: [...] with RIGHT supraclavicular region. These may be agency sales representative of metastatic lymph nodes. There is [...] Franklin Gomes M.D.10/31/2019 2:44 PM Dictation Location: [facility] The patient was seen by Dr. James [...] % (Auto) 33.7, Lymph % (Auto) 41.5, [place]ley % (Auto) 21.4, Eos % (Auto) 2.0, Baso % (Auto) 1.4, Neut # (Auto) 1.6 L, Lymph # (Auto) 1.9, [place] # (Auto) 1.0 H, Eos # (Auto) [...] % (Auto) 21.1, Lymph % (Auto) 51.6, [place] % (Auto) 24.2, Eos % (Auto) 1.9, Baso % (Auto) 1.2, Neut # (Auto) 0.5 L, Lymph # (Auto) 1.3, [place]ley # (Auto) 0.6, Eos # (Auto) 0.0, [...] for coordination of care (as documented) and hieg-gd-ysts counseling of patient and/or family. Dictated By: George Ash MD DD/ 1059 Signed By: <Electronically signed by MD George Ash> 12/16/19 3724 [facility] Work Phone: [phone] Progress note Author George Ash [facility] December 09, 2019 11:13am Note Date/Time December 09, 2019 11:1 1am [facility] [place] [address] Hem/Onc Follow Up Note - OP Signed Patient: Kirill Echols MR#: [id number] : 1965 Acct:[id number] Age/Sex: 54 / M Type: REG RCR [...] the findings below: Patient: Kirill Echols MR#: [id number] : 1965 Acct:[id number] Age/Sex: 54 / M ADM Date: 0 Loc: [facility] Room: Type: [facility] Attending Dr: Varghese Duval MD Ordering [...] with RIGHT supraclavicular region. These may be agency sales representative of metastatic lymph nodes. There is [...] Franklin Gomes M.D.10/31/2019 2:44 PM Dictation Location: [facility] The patient was seen by Dr. James and evaluated by Dr. Duval. 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 [facility] - Medical History Medical History: Medical [...] 7 Days 12/09/19 09:14: PHA Creatinine Clear [id number], Sodium 130 L, Potassium 4.3, Chloride 99, [...] at thattime as well. His dose of PER DIEM REGISTERED NURSE-16 is adjusted to 50% due to liver [...] for coordination of care (as documented) and wnbh-tj-jxgo counseling of patient and/or family. Dictated By: George Ash MD DD/ 1109 Signed By: <Electronically signed by MD George Ash> 12/09/19 1113 [facility] Work Phone: [phone] Progress note Author George Ash [facility] November 25, 2019 11:06am Note Date/Time November 25, 2019 11:0 1am [facility] [place] [address] Hem/Onc Follow Up Note - OP Signed Patient: Kirill Echols MR#: [id number] : 1965 Acct:[id number] Age/Sex: 54 / M Type: REG RCR [...] the findings below: Patient: Kirill Echols MR#: [id number] : 1965 Acct:[id number] Age/Sex: 54 / M ADM Date: 0 Loc: Room: Type: [facility] Attending Dr: Varghese Duval MD Ordering [...] with RIGHT supraclavicular region. These may be agency sales representative of metastatic lymph nodes. There is [...] Franklin Gomes M.D.10/31/2019 2:44 PM Dictation Location: [facility] The patient was seen by Dr. James and evaluated by Dr. Duval. 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 The patient does have evidence of hyponatremia. It is somewhat mild. He does have clubbing on physical exam. [facility] - Medical History Medical History: Medical [...] History (Last Reviewed 11/20/19 @ 14:40 by Leonico Kowalski MD) Mother Colon cancer Other Diabetes [...] % (Auto) 62.6, Lymph % (Auto) 28.7, Greeley % (Auto) 6.5, Eos % (Auto) 1.5, Baso % (Auto) 0.7, Neut # (Auto) 4.6, Lymph # (Auto) 2.1, [place]ley # (Auto) 0.5, Eos # (Auto) 0.1, Baso # (Auto) 0.0, Nucleated RBC % (auto) 0.2 11/24/19 07:33: PHA Creatinine Clear 75.7298913583, Sodium 128 L, Potassium 3.7,Chloride 93 L, [...] Not detected 11/18/19 14:04: PHA Creatinine Clear 68.7624836054, Sodium 128 L, Potassium 4.8,Chloride 93 L, [...] Neut % (Auto)N/A, Lymph % (Auto) N/A, [place] % (Auto) N/A, Eos % (Auto) N/A, Baso % (Auto) N/A,Neut # (Auto) N/A, Lymph # (Auto) N/A, [place] # (Auto) N/A, Eos # (Auto) N/A, [...] for coordination of care (as documented) and hgyl-av-uark counseling of patient and/or family. 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 [facility] - Medical History Medical History: Medical [...] <Electronically signed by Leoncio Kowalski MD> 11/20/19 1444 [facility] Work Phone: [phone] Progress note Author George Lalitkarissa [facility] November 20, 2019 11:12am Note Date/Time November 20, 2019 11:06 am [facility] [id number] Hem/Onc Follow Up Note - OP Signed Patient: Kirill Echols MR#: [id number] : 1965 Acct:[id number] Age/Sex: 54 / M Type: REG RCR [...] see Dr. Duval tomorrow for consideration of Jvhbtm-n-Kpgo. Chemotherapy education will be tomorrow November 20. [...] the findings below: Patient: Kirill Echols MR#: [id number] : 1965 Acct:[id number] Age/Sex: 54 / M ADM Date: 0 Loc: Room: Type: [facility] Attending Dr: Varghese Duval MD Ordering [...] with RIGHT supraclavicular region. These may be agency sales representative of metastatic lymph nodes. There is [...] Franklin Gomes M.D.10/31/2019 2:44 PM Dictation Location: [facility] The patient was seen by Dr. James and evaluated by Dr. Duval. 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 The patient does have evidence of hyponatremia. It is somewhat mild. He does have clubbing on physical exam. [facility] - Medical History Medical History: Medical [...] 7 Days 11/18/19 14:04: PHA Creatinine Clear 68.0273347051, Sodium 128 L, Potassium 4.8,Chloride 93 L, [...] Neut % (Auto)N/A, Lymph % (Auto) N/A, [place] % (Auto) N/A, Eos % (Auto) N/A, Baso % (Auto) N/A,Neut # (Auto) N/A, Lymph # (Auto) N/A, [place] # (Auto) N/A, Eos # (Auto) N/A, [...] cancer The patient will be seen for Tgxidl-r-Uaja tomorrow. Head CT has been ordered and [...] for coordination of care (as documented) and cmga-hg-leyp counseling of patient and/or family. Dictated By: George Ash MD DD/ 1104 Signed By: <Electronically signed by MD George Ash> 11/20/19 1112 [facility] Work Phone: [phone] Consult note Author George Ash [facility] November 18, 2019 2:02pm Note Date/Time November 18, 2019 1:50p [facility] [place] [address] Hem/Onc Consult Note - OP Signed Patient: Kirill Echols MR#: [id number] : 1965 Acct:[id number] Age/Sex: 54 / M Type: REG RCR [...] the findings below: Patient: Kirill Echols MR#: [id number] : 1965 Acct:[id number] Age/Sex: 54 / M ADM Date: 0 Loc: Room: Type: [facility] Attending Dr: Varghese Duval MD Ordering [...] with RIGHT supraclavicular region. These may be agency sales representative of metastatic lymph nodes. There is [...] Franklin Gomes M.D.10/31/2019 2:44 PM Dictation Location: [facility] The patient was seen by Dr. James and evaluated by Dr. Duval. 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 I was called by Dr. Duval today 11/18/2019 and arrange to see the patient immediately. The patient does have evidence of hyponatremia. It is somewhat mild. He does have clubbing on physical exam. [facility] - Medical History Medical History: Medical [...] for immediate head CT. He will need Hyzpvn-c-Kckp placement and I will refer him to Dr. Duval for this. The patient has fairly limited disease in the chest and mediastinum and may very well be a candidate for combined modality therapy with chemotherapy and radiation. I will refer himto radiation oncology here at [facility]. We will recommend to him immediate chemotherapy [...] for coordination of care (as documented) and gmyo-zf-zzcd counseling of patient and/or family. Dictated By: George Ash MD DD/ 1349 Signed By: <Electronically signed by MD George Ash> 11/18/19 1402 [facility] Work Phone: evaluation noteNo assessment information available [facility] Work Phone: evaluation note* Diagnosis Onset Date Resolution Status Anemia due to chemotherapy a cute Anxiety acute Cancer-related pain acute Chest pain acute Diarrhea acute Edema acute Joint pain acute Neck pain acute Small cell lung cancer chron ic [facility] Work Phone: Evaluation note* Diagnosis Onset Date Resolution Status Anemia due to chemotherapy a cute Anxiety acute Cancer-related pain acute Chest pain acute Diarrhea acute Edema acute Joint pain acute Neck pain acute Small cell lung cancer chron ic Chest pain acute [facility] Work Phone: Evaluation note* Diagnosis Onset Date Resolution Status Chest pain acute Small cell lung cancer acute Anemia due to chemotherapy a cute Anxiety acute Cancer-related pain acute Chest pain acute Diarrhea acute Edema acute Joint pain acute Neck pain acute Small cell lung cancer chron ic [facility] Work Phone: Evaluation note* Diagnosis Onset Date Resolution Status Chest pain acute Small cell lung cancer acute Anemia due to chemotherapy a cute Anxiety acute Cancer-related pain acute Chest pain acute Diarrhea acute Edema acute Joint pain acute Neck pain acute Small cell lung cancer chron ic Small cell lung cancer acute [facility] Work Phone: Evaluation note* [...] pain resolved [facility] Work Phone: evaluation note* Diagnosis Onset Date Resolution Status Cancer-related [...] pain resolved Small cell lung cancer chron ic [facility] Work Phone: History and physical note Author Tez Irene [facility] April 10, 2022 3:12pm Note Date/Time April 10, 2022 3:12pm [facility] [address] [place] [address] Hospitalist H&P Signed Patient: Kirill Echols MR#: [id number] : 1965 Acct:[id number] Age/Sex: 56 / M Adm Date: 2 Loc: Room: [address] [place] [address] Type: ADM INOo Attending Dr: Tez Irene [...] % (Auto) 14.2 % (.) 04/10/22 10:20 Greeley % (Auto) 9.9 % (.) 04/10/22 10:20 Eos % (Auto) 1.5 % (.) 04/10/22 10:20 Baso % (Auto) 1.0 % (.) 04/10/22 10:20 Neut # (Auto) 4.5 x10E3/uL (1.8-7.7) 04/10/22 10:20 Lymph # (Auto) 0.9 x10E3/uL (1.00-4.8) L 04/10/22 10:20 Greeley # (Auto) 0.6 x10E3/uL (0.0-0.8) 04/10/22 10:20 [...] signed by Tez Irene MD> 04/10/22 1512 [facility] Work Phone: Hisgldt general Narrative - Reported* Type Description Date Medical History COPD Medical History anxiety Medical History HTN Medical History Lung CA Surgical History Vasectomy Surgical History Right wrist surgery 2005 Surgical History Hernia repair Hospitalization History Related to above [employer] Other Hisjvhn general Narrative - Reported* Type Description Date Medical History COPD Medical History anxiety Medical History HTN Medical History Lung CA, small cell remission Surgical History Vasectomy Surgical History Right wrist surgery 2005 Surgical History Hernia repair Hospitalization History Related to above [employer] Other Hospital Discharge instructionsAmbulatory Orders* Initiate Home Health Time Frame: 1 Day, Location: Determined By Patient [facility] Work Phone: Hospital Discharge instructionsAmbulatory Orders* Initiate Home Health Time Frame: 1 Day, Location: Determined By Patient * Oncology Histology Time Frame: 10/03/22, Location: Determined By Patient * Oncology Histology Time Frame: 10/17/22, Location: Determined By Patient * Oncology Histology Time Frame: 10/10/22, Location: Determined By Patient [facility] Work Phone: Progress note Author Estela Varma [facility] February 27, 2022 2:56pm Note Date/Time February 27, 2022 2 :51pm [facility] [place] [address] Hem/Onc Follow Up Note - OP Signed Patient: Kirill Echols MR#: [id number] : 1965 Acct:[id number] Age/Sex: 56 / M Type: REG RCR [...] for review. No concerns voiced. HPI: 54-year-old -Emirati gentleman history of smoking 40 pack years [...] overwhelming for recurrence. He lives alone in [place]. His children live in [place]. His left him 8 months ago and [...] and urinary tract. Otherwise, there is an Wbphve-q-Qnre on the left. The lungs demonstrate emphysematous [...] He is considering moving back down to [facility] where he is from. 02/27/22 he [...] for coordination of care (as documented) and aphn-qg-sapj counseling of patient and/or family. [facility] - Medical History Medical History: Medical [...] 09/14/21 14:56 KB (Rec: 09/14/21 14:59 KB [id number]) Distress Screening Distress score of 4 or more discussed Yes with patient? Distress screening follow up: Spoke with patient via phone. Patient is doing ok at this time. Recently had a heart cath which was negative. He is happpy that his scans are good. Dr. Perez is working on getting him into [facility]. - Lab Results Diagram of Most [...] Work Phone: Progress note Author Estela Varma [facility] April 14, 2022 12:02pm Note Date/Time April 14, 2022 1 1:50[facility] [place] [id number] Hem/Onc Follow Up Note - OP Signed Patient: Kirill Echols MR#: [id number] : 1965 Acct:[id number] Age/Sex: 56 / M Type: REG RCR [...] concerns voiced at this time. HPI: 54-year-old -Emirati gentleman history of smoking 40 pack years [...] overwhelming for recurrence. He lives alone in [place]. His children live in [place]. His left him 8 months ago and [...] and urinary tract. Otherwise, there is an Fdgrwm-x-Igui on the left. The lungs demonstrate emphysematous [...] He is considering moving back down to [facility] where he is from. 02/27/22 he [...] for coordination of care (as documented) and ffru-kw-ciyu counseling of patient and/or family. [facility] - Medical History Medical History: Medical [...] 03/01/22 15:44 KB (Rec: 03/01/22 15:45 KB [id number]) Distress Screening Distress score of 4 or [...] % (Auto) 71.4, Lymph % (Auto) 16.2, [place] % (Auto) 8.6, Eos % (Auto) 2.9, Baso % (Auto) 0.9, Neut # (Auto) 4.5, Lymph # (Auto) 1.0, [place] # (Auto) 0.5, Eos# (Auto) 0.2, Baso [...] by Estela Varma II, DO> 04/14/22 1202 [facility] Work Phone: Progress note Author Dixie Olivia [facility] June 22, 2022 2:24pm Note Date/Time June 22, 2022 2 :16pm [facility] [place] [address] Hem/Onc Follow Up Note - OP Signed Patient: Kirill Echols MR#: [id number] : 1965 Acct:[id number] Age/Sex: 57 / M Type: REG RCR Copies to: MD Rylan Vega MD~ Subjective Date/Time of Service: Date of Service: 06/22/2022 Time of Service: 14:09 Chief Complaint: Patient is here for a 2 month follow up with, had chest tube placed 06/16/2022. No concerns voiced at this time. HPI: 54-year-old -Emirati gentleman history of smoking 40 pack years [...] overwhelming for recurrence. He lives alone in [place]. His children live in [place]. His left him 8 months ago and [...] pretty severe. 09/05/[address] Andrae. had a pet/ct on 09/02 notes FINDINGS: No hypermetabolic activity suspicious for malignancy is identified in the neck, chest, abdomen, or pelvis. Specifically, no abnormal uptake is seen in the subcarinal or right hilar regions. Laryngeal activity is presumably physiologic. There is physiologic activity in the heart and urinary tract. Otherwise, there is an Rugjej-s-Leuf on the left. The lungs demonstrate emphysematous [...] He is considering moving back down to [facility] where he is from. 02/27/22 he [...] diaphoresis. No orthostasis or dizziness or palpitations. [facility] - Medical History Medical History: Medical [...] 03/01/22 15:44 KB (Rec: 03/01/22 15:45 KB [id number]) Distress Screening Distress score of 4 or [...] for coordination of care (as documented) and xspc-rn-iglk counseling of patient and/or family. Dictated By: Dixie Olivia APRN DD/ 1409 Signed By: <Electronically signed by ERINN Olivia> 06/22/22 1424 [facility] Work Phone: Progress note Author Estela Varma [facility] September 19, 2022 10:02am Note Date/Time September 19, 2022 9:50am [facility] [place] [address] Hem/Onc Follow Up Note - OP Signed Patient: Kirill Echols MR#: [id number] : 1965 Acct:[id number] Age/Sex: 57 / M Type: REG RCR [...] Weight loss Follow Up Instructions: f/u wth UNIVERSITY ADMINISTRATIVE ASSISTANT in 6 weeks, cbc, cmp b12, folate, [...] concerns voiced at this time. HPI: 54-year-old -Emirati gentleman history of smoking 40 pack years [...] overwhelming for recurrence. He lives alone in [place]. His children live in [place]. His left him 8 months ago and [...] and urinary tract. Otherwise, there is an Fjfnwd-p-Jkpd on the left. The lungs demonstrate emphysematous [...] add on appointment after ER visit at [facility] on August 29, 2022 He went to [...] for coordination of care (as documented) and slqt-bn-vkle counseling of patient and/or family. [facility] - Medical History Medical History: Medical [...] 03/01/22 15:44 KB (Rec: 03/01/22 15:45 KB [id number]) Distress Screening Distress score of 4 or [...] by Estela Varma II DO> 09/19/22 1002 [facility] Work Phone: Progress note Author Estela Varma [facility] December 25, 2022 11:43am Note Date/Time December 25, 2022 11 :39am [facility] [place] [id number] Hem/Onc Follow Up Note - OP Signed Patient: Kirill Echols MR#: [id number] : 1965 Acct:[id number] Age/Sex: 57 / M Type: REG RCR [...] today. No new concerns voiced. HPI: 54-year-old -Emirati gentleman history of smoking 40 pack years [...] overwhelming for recurrence. He lives alone in [place]. His children live in [place]. His left him 8 months ago and [...] and urinary tract. Otherwise, there is an Htajuj-s-Lkqw on the left. The lungs demonstrate emphysematous [...] add on appointment after ER visit at [facility] on August 29, 2022 He went to [...] for coordination of care (as documented) and pfnh-ro-lcbg counseling of patient and/or family. [facility] - Medical History Medical History: Medical [...] Reviewed 10/26/22 @ 11:57 by Hannah Gamboa, ARTHUR) H/O vasectomy H/O wrist surgery Right side, [...] 03/01/22 15:44 KB (Rec: 03/01/22 15:45 KB [id number]) Distress Screening Distress score of 4 or [...] % (Auto) 70.2, Lymph % (Auto) 15.7, [place]ley % (Auto) 7.8, Eos % (Auto) 5.0, Baso % (Auto) 1.3, Nucleat RBC Rel Count 0.0, Neut # (Auto) 4.2, Lymph # (Auto) 0.9 L, [place] # (Auto) 0.5, Eos # (Auto) 0.3, [...] section and content) DATE CREATED AUTHOR 05/14/2018 [facility] DATE CREATED AUTHOR AUTHOR'S ORGANIZ ATION 03/05/2020 [facility] DATE CREATED AUTHOR AUTHOR'S ORGANIZ ATION 08/07/2020 [facility] DATE CREATED AUTHOR AUTHOR'S ORGANIZ ATION 08/20/2020 [facility] DATE CREATED AUTHOR AUTHOR'S ORGANIZ ATION 12/02/2021 [facility] DATE CREATED AUTHOR AUTHOR'S ORGANIZ ATION 03/04/2022 [facility] DATE CREATED AUTHOR AUTHOR'S ORGANIZ ATION 10/23/2022 [facility] DATE CREATED AUTHOR AUTHOR'S ORGANIZ ATION 09/14/2023 [facility] DATE CREATED AUTHOR AUTHOR'S ORGANIZ ATION 01/10/2024 [facility] DATE CREATED AUTHOR AUTHOR'S ORGANIZ ATION 01/22/2024 [facility] EP[facility] DATE CREATED AUTHOR AUTHOR'S ORGANIZ ATION 01/22/2024 [facility] REASON FOR VISIT (unrecogniz ed section and [...] vomiting, Being set up for time @ [facility] by Dr. 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 Installer Relationship Specialty Start Date End Date Rylan Andrea MD [address] [place] [address] PCP - General Family Medicine 10/16/22 Marilu Bonner NP [address] [place] [address] Nurse Practitioner Family Medicine 04/03/23 Nilsa Isidro NP [address] [place] [address] Nurse Practitioner Pulmonary Disease 04/03/23 Morenita Gomes, ARTHUR Registered Nurse Family Medicine 06/18/23 Sanjuana Van LSW Production Proofreader Family Medicine 06/18/23 [employer]ar [employer] Installer Relationship Specialty Start Date End Date Rylan Andrea MD [address] [place] [address] PCP - General Family Medicine 10/16/22 Marilu Bonner NP [address] [place] [address] Nurse Practitioner Family Medicine 04/03/23 Nilsa Isidro NP [address] [place] [id number] Nurse Practitioner Pulmonary Disease 04/03/23 Morenita Gomes, ARTHUR Registered Nurse Family Medicine 06/18/23 Sanjuana Van LSW Production Proofreader Family Medicine 06/18/23 FOR RECORDS PERTAINING TO [...] BE BASED ON THE PRIMARY CLINICAL RECORDS. [facility] [employer] [facility]. provides no warranty or guarantee of the accuracy or completeness of information in this document.
--- NOTE | 2024-01-23 22:52 | XR_ITS ---
The [address] [address] Patient Name: TONI GERBER MRN: [id number] date: 1965 Sex: M Assigned Patient Location: ER Current Patient Location: ED.MAIN Accession/Order Number: [id number] Exam Date: 01/23/2024 23:20 Report Date: 01/24/2024 00:31 At the request of: JAISON OLIVA Procedure: XR abdomen min 2V EXAM: XR abdomen min 2V HISTORY: constipation COMPARISON: None. TECHNIQUE: Supine and upright KUB films obtained. FINDINGS: Lung bases are clear. Air-fluid levels are seen scattered throughout small bowel loops within the mid and left upper quadrant. Air and stool in nondistended large bowel prominent stool retention and feces in rectosigmoid. There is some mild wall thickening of a few small bowel loops left midabdomen could reflect nonspecific enteritis. No opaque calculi in abdomen or pelvis. No acute osseous findings. XR/XR abdomen min 2V IMPRESSION: 1. Air-fluid levels within small bowel in the mid and left upper quadrant could reflect enteritis with ileus versus a developing small bowel obstruction or partial obstruction. Follow-up. 2. Moderate stool retention rectosigmoid. Electronically authenticated by: JULIA LARES Date: 01/24/2024 00:31
--- NOTE | 2024-01-23 22:53 | ED_ITS ---
HPI - Abdominal Pain General Chief Complaint: Abdominal Pain Stated Complaint: Constipation Time Seen by Provider: 01/23/24 22:44 Source: patient Mode of arrival: walk-in Limitations: no limitations History of Present Illness HPI narrative: ex smoker history of small cell CA currently in remission. Presents complaining of constipation. No BM for past 4-5 days. Occ vomiting. No fever admitted to the hospital 01/07/24 for fecal impaction causing SBO. States he has been taking metamucil and ex lax without results Related Data Home Medications ?Medication ?Instructions ?Recorded ?Confirmed aspirin 81 mg tablet,delayed 81 mg PO QDAY 01/02/23 01/17/24 release cyanocobalamin (vitamin B-12) 1,000 mcg PO .QD 11/06/23 01/17/24 1,000 mcg tablet (Vitamin B-12) fluticasone 250 mcg-salmeterol 50 1 inh inhalation Q12H 11/06/23 01/17/24 mcg/dose blistr powdr for inhalation melatonin 3 mg tablet 3 mg PO QPM PRN sleep 11/06/23 01/17/24 quetiapine 100 mg tablet 100 mg PO DAILY 11/26/23 01/17/24 levothyroxine 100 mcg tablet 100 mcg PO DAILY 12/13/23 01/17/24 quetiapine 100 mg tablet (Seroquel) 200 mg PO .QHS 01/07/24 01/17/24 sodium chloride 1,000 mg soluble 1,000 mg PO TID 01/07/24 01/17/24 tablet Allergies Allergy/AdvReac Type Severity Reaction Status Date / Time chlordiazepoxide Allergy facial Verified 11/16/23 14:39 [From Librium] swelling lisinopril Allergy Hypotension Verified 11/16/23 14:38 sertraline Allergy low energy Verified 11/16/23 14:39 Review of Systems ROS Status of ROS 10 or more systems reviewed and unremark able except as noted in history and below [facility] Medical History (Updated 01/24/24 @ 00:30 by Miguelangel Kendall MD) Chronic respiratory failure with hypoxia ?J96.11 - Chronic respiratory failure with hypoxia (ICD-10) Adult failure to thrive ?R62.7 - Adult failure to thrive (ICD-10) Acute hyponatremia ?E87.1 - Hypo-osmolality and hyponatremia (ICD-10) Acute exacerbation of chronic obstructive pulmonary disease (COPD) ?J44.1 - Chronic obstructive pulmonary disease with (acute) exacerbation (ICD-10) Costochondritis ?M94.0 - Chondrocostal junction syndrome [Tietze] (ICD-10) Hyponatremia ?E87.1 - Hypo-osmolality and hyponatremia (ICD-10) Partial small bowel obstruction ?K56.600 - Partial intestinal obstruction, unspecified as to cause (ICD-10) Insomnia ?G47.00 - Insomnia, unspecified (ICD-10) Hypothyroidism ?E03.9 - Hypothyroidism, unspecified (ICD-10) Lung cancer ?C34.90 - Malignant neoplasm of unspecified part of unspecified bronchus or lung (ICD-10) Hypertension ?I10 - Essential (primary) hypertension (ICD-10) Surgical History (Updated 01/16/24 @ 09:32 by Chaparrita Bang RN) History of cataract surgery ?Z98.49 - Cataract extraction status, unspecified eye (ICD-10) History of hand surgery ?Z98.890 - Other specified postprocedural states (ICD-10) History of colonoscopy ?Z98.890 - Other specified postprocedural states (ICD-10) H/O vasectomy ?Z98.52 - Vasectomy status (ICD-10) Family History Father Family history of cancer Family history of COPD (chronic obstructive pulmonary disease) Mother Family history of diabetes mellitus Family history of COPD (chronic obstructive pulmonary disease) Brother Family history of diabetes mellitus Sister Family history of diabetes mellitus Social History (Updated 01/16/24 @ 09:32 by Chaparrita Bang RN) Within the past year, how often did you have a drink containing alcohol: 4 or more times a week Within the past year, how many standard drinks containing alcohol did you have on a typical day: 1 or 2 Within the past year, how often did you have six or more drinks on one occasion: less than monthly Total score: 1 Score interpretation: A score of 4 or more indicates drinking is likely to affect patient's safety. Smoking status: Former smoker Non-prescribed substance use: cannabis (any form) Non-prescribed substance use details: torie Previous occupational history: DISABILITY Highest level of school completed/degree received: some college, no degree Are you now , , , , never or living with a partner: In a typical week, how many times do you talk on the telephone with family, friends, or neighbors: never How often do you get together with friends or relatives: never Exam Constitutional Vital Signs, click to edit/add: Last Vital Signs Temp 97.7 F 01/23/24 22:40 Pulse 123 H 01/23/24 22:40 Resp 22 H 01/23/24 22:40 BP 128/99 H 01/23/24 22:40 Pulse Ox 99 01/23/24 22:40 O2 Del Method Room Air 01/23/24 22:40 Common normals: no apparent distress, average body habitus, oriented x3, no limitations, healthy appearing, alert and well nourished HENWA Common normals: normocephalic and head/scalp atraumatic Eye Common normals: EOMs intact bilaterally and conjunctivae normal Respiratory Common normals: normal respiratory effort, no retractions, no use of accessory muscles and clear to auscultation bilaterally Cardio Common normals: regular rate, regular rhythm, S1 normal heart sound and S2 normal heart sound GI Common normals: Normal to inspection, nondistended, normoactive bowel sounds present and soft to palpation Other: gen. tenderness. no guarding Extremity Common normals: normal to inspection and full ROM Neuro Common normals: oriented x3, CN's II-XII intact bilaterally and moves all extremities Psych Appearance: grossly normal Course Vital Signs Vital signs: Vital Signs Temperature 97.7 F 01/23/24 22:40 Pulse Rate 123 H 01/23/24 22:40 Respiratory Rate 22 H 01/23/24 22:40 Blood Pressure 128/99 H 01/23/24 22:40 Pulse Oximetry 99 01/23/24 22:40 Oxygen Delivery Method Room Air 01/23/24 22:40 Temperature 97.7 F 01/23/24 22:40 Pulse Rate 123 H 01/23/24 22:40 Respiratory Rate 22 H 01/23/24 22:40 Blood Pressure 128/99 H 01/23/24 22:40 Pulse Oximetry 99 01/23/24 22:40 Oxygen Delivery Method Room Air 01/23/24 22:40 MDM - Abdominal Pain MDM Narrative Medical decision making narrative: patient presents complaining of constipation. xray with evidence of fecal impaction. Patient dis impacted followed by enema and had large BMs. feeling much better. Discharged and advised to use miralax and stool softner. states his PCP is setting him up for a colonoscopy Lab Data Labs: Lab Results 01/23/24 Range/Units 23:00 WBC 9.1 (4.0-11.0) 10^3/uL RBC 3.67 L (4.70-6.10) 10^6/uL Hgb 11.8 L (14.0-18.0) g/dL Hct 34.9 L (42.0-54.0) % MCV 95.1 H (80.0-94.0) fL MCH 32.2 (25.9-34.0) pg MCHC 33.8 (29.9-35.2) g/dL RDW 15.3 H (11.0-15.0) % Plt Count 252 (150-450) 10^3/uL MPV 9.0 L (9.5-13.5) fL Neut % (Auto) 64.6 (43.0-75.0) % Lymph % (Auto) 20.0 L (20.5-60.0) % [place] % (Auto) 9.4 (1.7-12.0) % Eos % (Auto) 5.4 (0.9-7.0) % Baso % (Auto) 0.4 (0.2-2.0) % Neut # (Auto) 5.9 (1.4-6.5) 10^3/uL Lymph # (Auto) 1.8 (1.2-3.8) 10^3/uL [place] # (Auto) 0.9 H (0.3-0.8) 10^3/uL Eos # (Auto) 0.5 (0.0-0.7) 10^3/uL Baso # (Auto) 0.0 (0.0-0.1) 10^3/uL Abs Immat Gran (auto) 0.02 (0.00-0.03) 10^3/uL Imm/Tot Granulo (auto) 0.2 (0.0-0.5) % Sodium 130 L (136-145) mmol/L Potassium 4.0 (3.5-5.1) mmol/L Chloride 96 L (98-107) mmol/L Carbon Dioxide 27.4 (21.0-32.0) mmol/L Anion Gap 10.6 BUN 22.0 H (7.0-18.0) mg/dL Creatinine 1.46 H (0.70-1.30) mg/dL Est GFR ( Amer) >60 (>=60) Est GFR (Non-Af Amer) 50 L (>=60) BUN/Creatinine Ratio 15.1 Glucose 101 (74-106) mg/dL Lactate 1.3 (0.4-2.0) mmol/L Calcium 9.4 (8.5-10.1) mg/dL Total Bilirubin 0.5 (0.2-1.0) mg/dL AST 12 L (15-37) U/L ALT 14 L (16-63) U/L Alkaline Phosphatase 144 H (46-116) U/L Total Protein 8.4 H (6.4-8.2) g/dL Albumin 3.7 (3.4-5.0) g/dL Globulin 4.7 g/dL Albumin/Globulin Ratio 0.8 Discharge Plan Discharge Chief Complaint: Abdominal Pain Clinical Impression: Impacted fece Patient Disposition: Home, Self-Care Prescriptions / Home Meds: No Action aspirin 81 mg tablet,delayed release (DR/EC) 81 mg PO QDAY fluticasone propion-salmeterol 250-50 mcg/dose blister with device 1 inh INHALATION Q12H cyanocobalamin (vitamin B-12) [Vitamin B-12] 1,000 mcg tablet 1,000 mcg PO .QD melatonin 3 mg tablet 3 mg PO QPM PRN (Reason: sleep) levothyroxine 100 mcg tablet 100 mcg PO DAILY quetiapine 100 mg tablet 100 mg PO DAILY Rx Instructions: 100mg in morning 200mg at night orally daily; sodium chloride 1,000 mg tablet,soluble 1,000 mg PO TID quetiapine [Seroquel] 100 mg tablet 200 mg PO .QHS Print Language: Hebrew Instructions: Fecal Impaction (ED) Additional Instructions: use miralax daily along with stool softner Referrals: DANNA QURESHI [Primary Care Provider] - 1 week
[2024-01-23] MEDS: 0.9 % SODIUM CHLORIDE 1,000 ML 999 ML IV (23:06)
[2024-01-23 23:20] LABS: Basophils Percent Auto 0.4 % (0.2-2.0); Eosinophils Absolute Auto 0.5 10^3/uL (0.0-0.7); Eosinophils Percent Auto 5.4 % (0.9-7.0); Hematocrit 34.9 % (42.0-54.0); Hemoglobin 11.8 g/dL (14.0-18.0); Immature Granulocytes Abs Auto 0.02 10^3/uL (0.00-0.03); Immature Granulocytes Pct Auto 0.2 % (0.0-0.5); Lymphocytes Absolute Auto 1.8 10^3/uL (1.2-3.8); Mean Corpuscular HGB Conc 33.8 g/dL (29.9-35.2); Mean Corpuscular Hemoglobin 32.2 pg (25.9-34.0); Mean Corpuscular Volume 95.1 fL (80.0-94.0); Monocytes Absolute Auto 0.9 10^3/uL (0.3-0.8); Monocytes Percent Auto 9.4 % (1.7-12.0); Neutrophils Absolute Auto 5.9 10^3/uL (1.4-6.5); Neutrophils Percent Auto 64.6 % (43.0-75.0); Platelet Count 252 10^3/uL (150-450); Red Blood Count 3.67 10^6/uL (4.70-6.10); Red Cell Distribution Width 15.3 % (11.0-15.0); White Blood Count 9.1 10^3/uL (4.0-11.0)
[2024-01-23 23:36] LABS: Alanine Aminotransferase 14 U/L (16-63); Albumin Globulin Ratio 0.8; Albumin Level 3.7 g/dL (3.4-5.0); Alkaline Phosphatase 144 U/L (46-116); Anion Gap 10.6; Aspartate Amino Transferase 12 U/L (15-37); BUN Creatinine Ratio 15.1; Bilirubin Total 0.5 mg/dL (0.2-1.0); Calcium 9.4 mg/dL (8.5-10.1); Carbon Dioxide 27.4 mmol/L (21.0-32.0); Chloride 96 mmol/L (98-107); Estimated GFR (African America >60 (>=60); Estimated GFR (Non-African Ame 50 (>=60); Globulin 4.7 g/dL; Glucose 101 mg/dL (74-106); Sodium 130 mmol/L (136-145); Total Protein 8.4 g/dL (6.4-8.2)
[2024-01-23 23:39] LABS: Lactate/Lactic Acid 1.3 mmol/L (0.4-2.0)
== END 2024-01-24 00:45 | disposition home or self-care (01) ==
PROVIDERS: Emergency Provider Internal Medicine; PCP Family Medicine
DX: K59.00 Constipation, unspecified (principal); Z87.891 Personal history of nicotine dependence; Z85.118 Personal history of other malignant neoplasm of bronchus and lung
CPT/HCPCS: 36415; 74019; 80053; 83605; 85025; 96360; 99284

== ENCOUNTER 2024-06-03 11:19 | Outpatient (OUT) | payer MEDICARE, MEDICAID, SELFPAY ==
[2024-06-03 13:22] LABS: Free T4 0.92 ng/dL (0.76-1.46)
[2024-06-04 04:11] LABS: CEA 15.4 ng/mL (0.0-4.7); Vitamin B12 510 pg/mL (232-1245)
== END 2024-06-03 11:20 | disposition home or self-care (01) ==
LOC: LAB 11:24
PROVIDERS: PCP Family Medicine; Visit Provider Registered Nurse
DX: R63.4 Abnormal weight loss (principal); L65.9 Nonscarring hair loss, unspecified; E06.3 Autoimmune thyroiditis; E61.1 Iron deficiency; E53.8 Deficiency of other specified B group vitamins
CPT/HCPCS: 36415; 82378; 82607; 83540; 83550; 84439; 84481

== ENCOUNTER 2024-06-19 12:30 | Outpatient (OUT) | payer MEDICARE, MEDICAID, SELFPAY ==
--- OUTSIDE RECORDS SUMMARY | 2024-06-19 12:53 | XMS_ITS | CCD ---
Author Organization [facility] Care Team Providers Care Pasteurizing Supervisor Name Role Phone CUBA ESQUIVEL Unavailable Unavailable [...] Unavailable MD Rylan Andrea Primary Care Provider [phone] MD Varghese Duval Referring Provider DO Estela Varma II Attending Provider MD Rylan Andrea Primary Care Provider MD Varghese Duval Referring Provider DO Estela Varma II Attending Provider [phone] DO Kali Longo Emergency Provider MD Tez Irene Admit Provider MD Tez Irene Attending Provider MD Rylan Andrea Primary Care Provider DO Estela Varma II Other Provider MD Varghese Duval Referring Provider [phone] DO Estela Varma II Attending Provider MD Varghese Duval Referring Provider Adamowicz II, DO Estela J Attending Provider [phone]( [phone] MD Rachid Chase Attending Provider [phone] MD Varghese Duval Attending Provider Adamowicz II, DO Estela J Attending Provider MD Annette Guardado Other Provider MD Varghese Duval Referring Provider [phone] Rachid Chase Unavailable MD Rylan Andrea Primary Care Provider MD Varghese Duval Referring Provider Adamowicz II, DO Estela J Attending Provider [phone]( [phone] YULY Isidro Attending Provider [phone] KIERA, DR FAGAN Primary Care Unavailable ADAMOWICZ, ESTELA J Admitting Unavailable ADAMOWICZ, ESTELA J Attending Unavailable ADAMOWICZ, ESTELA J Consulting Unavailable ANDREA, DR FAGAN Primary Care Unavailable ADAMOWICZ, ESTELA J Admitting Unavailable ADAMOWICZ, ESTELA J Attending Unavailable ADAMOWICZ, ESTELA J Consulting Unavailable ANDREA, DR FAGAN Primary Care Unavailable ADAMOWICZ, ESTELA J Admitting Unavailable ADAMOWICZ, ESTELA J Attending Unavailable ADAMOWICZ, ESTELA J Consulting Unavailable GILLIAM, DR MARCE Fernandez Consulting Unavailable NADERER, DR LIZBET Flaherty Admitting Unavailable NADERER, DR LIZBET Flaherty Attending Unavailable ANDREA, DR FAGAN Primary Care Unavailable NADERER, DR LIZBET Flaherty Consulting Unavailable SAHIL ., DR ROUSE Consulting Unavailable ALEXANDRIA, DR MELANI Davis Admitting Unavailabl e REINECK, DR MELANI Davis Attending Unavailabl e REINECK, DR MELANI Davis Consulting Unavailabl e ANDREA, DR FAGAN Primary Care Unavailable MARCE SHAY Consulting Unavailable RACHEL, DR JESSE Norton Consulting Unavailable DIAB ., JEVON Admitting Unavailable DIAB ., JEVON Attending Unavailable ANDREA, DR FAGAN Primary Care Unavailable DIAB ., JEVON Consulting Unavailable ANDREA, DR FAGAN Primary Care Unavailable ADAMOWICZ, ESTELA J Admitting Unavailable ADAMOWICZ, ESTELA J Attending Unavailable ADAMOWICZ, ESTELA J Consulting Unavailable ANDREA, DR FAGAN Primary Care Unavailable ESTELA VARMA Attending Unavailable KOJO, ESTELA Rosales Consulting Unavailable ESTELA VARMA Admitting Unavailable ANDREA, DR FAGAN Admitting Unavailable ZIEBER, DR JESSE Norton Consulting Unavailable ANDREA, DR FAGAN Primary Care Unavailable ANDREA, DR FAGAN Attending Unavailable KIERA, DR FAGAN Consulting Unavailable MD Rylan Andrea Primary Care Provider MD Varghese Duval Referring Provider Kojo II, DO Estela Rosales Attending Provider [phone] KIKO Molina Emergency Provider MD Varghese Duval Referring Provider Kojo II, DO Estela Rosales Attending Provider MD Varghese Duval Referring Provider Kojo II, DO Estela Rosales Attending Provider 1( [phone] Rylan Andrea MD Primary Care Provider Rafa PIT SHOVELER, Marilu Unavailable Sanna ALMEIDA, Nilsa R Unavailable [phone] Eliseo GIBSON, Morenita Unavailable Sanjuana Chandler Unavailable MD Rylan Andrea Primary Care Provider [phone] MD Varghese Duval Referring Provider Kojo II, DO Estela Rosales Attending Provider RYLAN ANDREA Referring Unavailable ANDREA, RYLAN A Primary Care Unavailable ANDREA RYLAN A Referring Unavailable ANDREA, RYLAN A Primary Care Unavailable Manpreet SALEEM Attending Unavailable MD Rylan Andrea Primary Care Provider Ly, DO Cathi Elmore Attending Provider [phone] Sanna ALMEIDA, Nilsa R Unavailable [phone] Shobha OD, Cindy Unavailable Ophelia James DO Unavailable Rylan Andrea MD Unavailable [phone] Eliseo GIBSON, Morenita Unavailable Cindy العلي MD Unavailable Cathi Miranda Attending Unavailable Andrea, Rylan Primary Care Unavailable Cathi Miranda Admitting Unavailable Andrea, Rylan Primary Care Unavailable Adamowicz II, Estela Rosales Admitting Unavaila ble Adamowicz II, Estela J Attending Unavaila ble DeRiso, Varghese Referring Unavailable PETITTI, KAREN A Attending Unavailable WARCHOL, MARILU Referring Unavailable WARCHOL, MARILU Attending Unavailable ANDREA, RYLAN A Attending Unavailable WARCHOL, MARILU Attending Unavailable WARCHOL, MARILU Referring Unavailable WARCHOL, MARILU Attending Unavailable ZAHLFLORINDA REYES Attending Unavailable WARCHOL, MARILU Attending Unavailable WARCHOL, MARILU Attending Unavailable ANDREA, RYLAN A Attending Unavailable OPHELIA JAMES Attending Unavailable WARCHOL, MARILU Referring Unavailable WARCHOL, MARILU Attending Unavailable WARCHOL, MARILU Attending Unavailable WARCHOL, MARILU Attending Unavailable WARCHOL, MARILU Attending Unavailable Allergies Allergy Classification Reported Allergen(s) Allergy Type Date of Onset Reaction(s) Facility (4 sources) chlordiazePOXID E; Translations: [Librium] Drug Allergy Unknown [facility] Repository (20 sources) Lisinopril; Translations: [lisinopril] Drug Allergy 2 Unknown, Swelling of Lip/Tongue/Thro at [facility] (20 sources) Sertraline; Translations: [sertraline] Drug Allergy 2 [facility] (20 sources) chlordiazePOXID E; Translations: [chlordiazepoxi de] Drug Allergy 3 [facility] (1 source) Amino Acids Drug Allergy [facility] Repository (1 source) Sertraline Drug Allergy 2 [facility] Repository (20 sources) Lisinopril Allergy to substance 3 [facility] (1 source) Lisinopril Drug Allergy 4 [facility] Repository Medications Current Medications Medication Drug Class(es) Dates Sig (Normalized) Sig (Original) aspirin 81 mg delayed release oral tablet (20 sources) Platelet Aggregation Inhibitor, Nonsteroidal Anti-inflammatory Drug Start: 09-08-2021 take 1 tablet by mouth in the morning Aspirin Low Dose 81 MG EC tablet Take 81 mg by mouth in the morning. as directed. 06/20/2022 Active Start: 05-03-2020 End: 08-17-2020 take 81 mg by mouth once daily Aspirin Discontinued 81 MG PO Daily May 03, 2020 1:00am August 17, 2020 9:44am Start: 03-02-2020 End: 05-03-2020 take 81 mg by mouth once daily Aspirin Discontinued 81 MG PO Daily March 02, 2020 12:00am May 03, 2020 11:59am take 1 tablet by dhaval th once daily Aspirin 81 81 MG 1 tablet Orally Once a day Active docusate sodium 100 mg oral capsule (20 sources) Start: 02-04-2024 take 1 capsule by mouth in the morning docusate sodium (Colace) 100 MG capsule Take 100 mg by mouth in the morning and 100 mg before bedtime. 02/04/2024 Active Start: 09-01-2020 End: 02-01-2021 take 1 capsule by mouth once daily Docusate Sodium (Colace) 100 mg Capsule Discontinued 100 MG PO Daily September 01, 2020 12:00am February 01, 2021 10:51am 30 actuat fluticasone furoate 0.1 mg/actuat / umeclidinium 0.0625 mg/actuat / vilanterol 0.025 mg/actuat dry powder inhaler (20 sources) Anticholinergic, Corticosteroid, beta2-Adrenergic Agonist Start: 02-08-2024 Gmddbtymicu-Eyevejaob-Nlibou er (Trelegy Ellipta) 100-62.5-25 mcg blister with device Active 1 INH INHALATION Daily February 08, 2024 12:00am Start: 01-10-2024 End: 03-17-2024 take 1 puff(s) by inhalation once daily Phazvuniupo-Apmgvtekm-Pankoo (Trelegy Ellipta) 100-62.5-25 MCG/ACT aerosol powder Indications: Chronic obstructive pulmonary disease, unspecified COPD type ([facility]) Inhale 1 puff Daily 03/17/2024 Active Start: 07-26-2020 End: 08-17-2020 Njlthioixct-Fqkgbdhpp-Qrepmz er (Trelegy Ellipta) 100-62.5-25 mcg Blister With Device Discontinued 1 INH INHALATION Daily July 25, 2020 11:00pm August 17, 2020 8:43am Start: 07-26-2020 End: 08-17-2020 Ebuozwlrzyf-Pgaohtbvk-Chmzrw er (Trelegy Ellipta) 100-62.5-25 mcg Blister With Device Discontinued 1 INH INHALATION Daily July 26, 2020 12:00am August 17, 2020 9:43am furosemide 40 mg oral tablet (20 sources) Loop Diuretic Start: 12-03-2023 take 1 tablet by mouth once daily furosemide (Lasix) 40 MG tablet Indications: Edema of left lower extremity , Edema of right lower extremity Take 1 tablet (40 mg) by mouth Daily for 14 days 14 tablet 12/03/2023 Active Start: 12-01-2019 End: 05-03-2020 take 2 tablets by mouth once daily in the morning Furosemide (Lasix) 20 mg tablet Discontinued 40 MG PO Every morning December 30, 2019 9:57am May 03, 2020 12:01pm take for ankle swelling Start: 11-25-2019 End: 12-01-2019 take 1 tablet by mouth once daily Furosemide (Lasix) 20 mg Tablet Discontinued 20 MG PO Daily November 25, 2019 12:00am December 01, 2019 1:54pm take for ankle swelling levothyroxine sodium 0.1 mg oral tablet (20 sources) l-Thyroxine Start: 09-08-2023 End: 09-13-2024 take 1 tablet by mouth before mealtime levothyroxine (Synthroid, Levoxyl) 100 MCG tablet Indications: 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) Take 1 tablet (100 mcg) by mouth in the morning. Take before meals. 03/17/2024 09/13/2024 Active melatonin 3 mg oral tablet (20 sources) Start: 10-29-2023 End: 01-14-2025 melatonin 3 MG tablet Indications: Primary insomnia Take 1 tablet (3 mg) by mouth as needed at bedtime for sleep 90 tablet 3 01/15/2024 01/14/2025 Active Start: 04-12-2023 End: 10-09-2023 melatonin 3 MG tablet Indica tions: Primary insomnia Take 1 tablet (3 mg) by mouth as needed at bedtime for sleep. 30 tablet 5 04/12/2023 10/09/2023 Active Start: 04-10-2022 End: 09-04-2022 take 3 mg by mouth at bedtime Melatonin Discontinued 3 MG PO Bedtime April 10, 2022 1:00am September 04, 2022 11:23am Start: 09-01-2020 End: 02-01-2021 take 3 mg by mouth at bedtime Melatonin Discontinued 3 MG PO Bedtime September 01, 2020 12:00am February 01, 2021 10:52am Start: 07-30-2019 End: 08-17-2020 take 3 mg by mouth at bedtime Melatonin Discontinued 3 MG PO Bedtime June 06, 2020 1:00am August 17, 2020 9:43am pantoprazole 40 mg delayed release oral tablet (14 sources) Proton Pump Inhibitor Start: 02-18-2024 pantoprazole (ProtoNix) 40 MG EC tablet Daily 02/18/2024 Active Start: 09-08-2023 End: 01-15-2024 take 1 tablet by mouth before mealtime pantoprazole (ProtoNix) 40 MG EC tablet Take 40 mg by mouth in the morning. Take before meals. 09/08/2023 01/15/2024 Discontinued polyethylene glycol 3350 19075 mg powder for oral solution (19 sources) Osmotic Laxative Start: 01-31-2024 Polyethylene Glycol 3350 (Miralax) 17 gram/dose powder Active 17 GM PO Daily January 31, 2024 12:00am Start: 08-17-2020 End: 09-01-2020 Polyethylene Glycol 3350 (Mi ralax) 17 gram/dose Powder Discontinued 17 GM PO Daily August 17, 2020 12:00am September 01, 2020 2:44pm QUEtiapine 100 mg oral tablet (20 sources) Atypical Antipsychotic Start: 03-17-2024 QUEtiap ine (SEROquel) 100 MG tablet Indications: Current moderate episode of major depressive disorder without prior episode (HCC) (CMS/HCC) Take 1 tablet in the morning and 2 tablets at night 03/17/2024 Active Start: 12-03-2023 QUEtiapine (SE ROquel) 100 MG tablet Indications: Current moderate episode of major depressive disorder without prior episode (HCC) (CMS/HCC) Take 1 tablet in the morning and 2 tablets at night 90 tablet 11 12/03/2023 Active Start: 04-10-2022 take 200 mg by mouth once daily at bedtime Quetiapine Active 200 MG PO Daily at bedtime April 10, 2022 1:00am Start: 04-05-2021 take 100 mg by mouth twice daily Quetiapine Active 100 MG PO Twice daily April 05, 2021 12:00am Start: 12-04-2019 End: 03-17-2024 QUEtiapine (SEROquel) 100 MG tablet Indications: Current moderate episode of major depressive disorder without prior episode (HCC) (CMS/HCC) Take 1 tablet in the morning and 2 tablets at night 90 tablet 11 12/03/2023 Active Start: 12-01-2019 End: 08-03-2020 Quetiapine (Seroquel) 100 mg tablet Discontinued 150 MG PO Bedtime December 01, 2019 1:23pm August 03, 2020 11:18am Start: 08-04-2019 End: 12-01-2019 take 100 mg by mouth once daily at bedtime Quetiapine Discontinued 100 MG PO Daily at bedtime August 04, 2019 12:00am December 01, 2019 1:23pm Start: 07-30-2019 End: 08-04-2019 take 100 mg by mouth once daily at bedtime Quetiapine Discontinued 100 MG PO Daily at bedtime July 30, 2019 12:00am August 04, 2019 10:31am Start: 09-22-2017 End: 07-30-2019 take 50 mg by mouth once daily at bedtime Quetiapine Discontinued 50 MG PO Daily at bedtime September 22, 2017 12:00am July 30, 2019 3:24pm take 1.5 tablets by mouth once daily at bedtime QUEtiapine Fumarate 100 MG TAKE 1.5 TABLETS BY MOUTH DAILY AT BEDTIME Oral Active zolpidem tartrate 5 mg oral tablet (20 sources) gamma-Aminobutyric Acid-ergic Agonist Start: 06-17-2024 End: 07-17-2024 zolpidem (Ambien) 5 MG tablet Indications: Primary insomnia Take 1 tablet (5 mg) by mouth as needed at bedtime for sleep 30 tablet 06/17/2024 07/17/2024 Active Start: 08-17-2020 End: 09-01-2020 take 5 mg by mouth once daily at bedtime Zolpidem Discontinued 5 MG PO Daily at bedtime August 17, 2020 12:00am September 01, 2020 2:45pm take 2 tablets by mo uth at bedtime Zolpidem Tartrate 5 MG (Schedule IV Drug) TAKE 2 TABLETS BY MOUTH AT BEDTIME FOR DIFFICULTY SLEEPING Oral for 21 Not-Taking Completed/Discontinued Medications Medication Drug Class(es) Dates Sig (Normalized) Sig (Original) acetaminophen 500 mg oral tablet (20 sources) Start: 08-17-2020 End: 09-01-2020 take 500 mg by mouth every six hours Acetaminophen Discontinued 500 MG PO Q6H August 17, 2020 12:00am September 01, 2020 2:42pm Start: 07-26-2020 End: 07-26-2020 take 650 mg by mouth three times daily Acetaminophen Discontinued 650 MG PO Three times daily July 26, 2020 12:00am July 26, 2020 4:16pm Start: 12-04-2019 take 2 tablets by mo uth every eight hours as needed acetaminophen (Tylenol) 325 MG tablet 650 mg Orally Q 8 hrs as needed 12/04/2019 Active Start: 12-04-2019 End: 02-26-2020 take 1 tablet by mouth every eight hours Acetaminophen (Tylenol 8 Hour) 650 mg tablet extended release Discontinued 650 MG PO Q8H December 04, 2019 12:00am February 26, 2020 2:07pm acetaminophen 325 mg / HYDROcodone bitartrate 5 mg oral tablet (20 sources) Opioid Agonist Start: 12-25-2023 End: 12-30-2023 take 1 tablet by mouth every six hours for pain HYDROcodone-acetaminophen (Luke) 5-325 MG tablet Indications: Generalized abdominal pain Take 1 tablet by mouth every 6 (six) hours if needed for severe pain for up to 5 days 20 tablet 12/25/2023 12/30/2023 Start: 06-17-2022 End: 09-04-2022 take 1 tablet by mouth every six hours Hydrocodone-Acetaminophen Discontinued 1 - 2 TAB PO Q6H 40 June 17, 2022 September 04, 2022 11:24am Start: 12-03-2020 End: 02-01-2021 take 1 tablet by mouth every four to six hours Hydrocodone-Acetaminophen Discontinued 1 TAB PO EVERY 4-6 HOURS 10 December 03, 2020 February 01, 2021 10:52am Start: 11-06-2020 End: 02-01-2021 take 1 tablet by mouth three times daily Hydrocodone-Acetaminophen Discontinued 1 TAB PO Three times daily 9 November 06, 2020 February 01, 2021 10:51am acetaminophen 325 mg / oxyCODONE hydrochloride 5 mg oral tablet (20 sources) Opioid Agonist Start: 08-24-2021 End: 02-27-2022 take 1 tablet by mouth every six hours Oxycodone-Acetaminophen (Percocet) 5-325 mg Tablet Discontinued 1 TAB PO Q6H 28 7 August 24, 2021 February 27, 2022 2:34pm Start: 02-01-2021 End: 04-05-2021 take 1 tablet by mouth every four hours Oxycodone-Acetaminophen (Percocet) 5-325 mg Tablet Discontinued 1 TAB PO Q4H 30 7 February 01, 2021 April 05, 2021 11:47am Start: 12-04-2019 End: 05-03-2020 take 1-2 tablets by mouth every four hours Oxycodone-Acetaminophen (Percocet) 7.5-325 mg Tablet Discontinued 1 TAB PO Q4H 60 December 04, 2019 May 03, 2020 12:08pm 1-2 tab #100 RF zero given on 12/29 [id number] 200 actuat albuterol 0.09 mg/actuat metered dose inhaler (20 sources) beta2-Adrenergic Agonist Start: 02-28-2020 End: 08-17-2020 Albuterol Sulfate Discontinued 2 INH INHALATION Four times daily February 28, 2020 12:00am August 17, 2020 9:44am Start: 07-30-2019 End: 02-26-2020 take 2 puff(s) by inhalation four times daily as needed Albuterol Sulfate (Proair Hfa) 90 mcg/actuation HFA aerosol inhaler Discontinued 2 PUFF INHALATION Four times daily July 30, 2019 12:00am February 26, 2020 2:07pm INHALE 2 PUFFS NEEDED 4 TIMES DAILY [...] hydrochloride 10 mg extended release oral tablet (17 sources) alpha-Adrenergic Joel Start: 09-22-2017 End: 07-30-2019 take 10 mg by mouth once daily Alfuzosin Discontinued 10 MG PO Daily September 22, 2017 12:00am July 30, 2019 3:23pm amLODIPine 5 mg oral tablet (20 sources) Dihydropyridine Calcium Channel Joel Start: 09-04-2022 End: 01-31-2024 amLODIPine (Norvasc) 5 MG tablet 04/12/2023 01/15/2024 Discontinued Start: 09-01-2020 End: 06-15-2022 take 5 mg by mouth once daily Amlodipine Discontinued 5 MG PO Daily September 01, 2020 12:00am June 15, 2022 2:51pm Start: 07-30-2019 End: 08-17-2020 take 1 tablet by mouth once daily in the morning Amlodipine (Norvasc) 5 mg tablet Discontinued 5 MG PO Every morning July 30, 2019 12:00am August 17, 2020 9:44am amoxicillin 875 mg / clavulanate 125 mg oral tablet (2 sources) Penicillin-class Antibacterial Start: 12-25-2023 End: 01-04-2024 take 1 tablet by mouth in the morning amoxicillin-clavulanate (Augmentin) 875-125 MG tablet Indications: Urinary tract infection with hematuria, site unspecified Take 1 tablet (875 mg) by mouth in the morning and 1 tablet (875 mg) before bedtime. Do all this for 10 days. 20 tablet 12/25/2023 01/04/2024 bisacodyl 10 mg rectal suppository (17 sources) Stimulant Laxative Start: 08-17-2020 End: 09-01-2020 Bisacodyl (Dulcolax (Bisacodyl)) 10 mg Suppository Discontinued 10 MG OH Q24H August 17, 2020 12:00am September 01, 2020 2:41pm buPROPion hydrochloride 100 mg oral tablet (20 sources) Aminoketone Start: 09-04-2022 End: 09-04-2022 Bupropion Hcl Discontinued 100 MG PO Three times daily September 04, 2022 12:00am September 04, 2022 11:24am administer 6 hours apart Start: 08-23-2021 End: 02-27-2022 take 100 mg by mouth three times daily Bupropion Hcl Discontinued 100 MG PO Three times daily September 09, 2021 12:00am February 27, 2022 2:34pm busPIRone hydrochloride 15 mg oral tablet (20 sources) Start: 09-01-2020 End: 02-01-2021 take 20 mg by mouth three times daily Buspirone Discontinued 20 MG PO Three times daily September 01, 2020 2:49pm February 01, 2021 10:51am Start: 08-03-2020 End: 09-01-2020 take 15 mg by mouth three times daily Buspirone Discontinued 15 MG PO Three times daily August 03, 2020 12:00am September 01, 2020 2:50pm Start: 07-30-2019 End: 08-03-2020 take 10 mg by mouth three times daily Buspirone Discontinued 10 MG PO TID@0900,1400,2200 December 01, 2019 2:14pm August 03, 2020 11:18am celecoxib 100 mg oral capsule (20 sources) Nonsteroidal Anti-inflammatory Drug Start: 11-29-2019 End: 07-26-2020 take 1 capsule by mouth twice daily Celecoxib (Celebrex) 100 mg capsule Discontinued 100 MG PO BID@0900,2100 December 01, 2019 1:23pm July 26, 2020 4:21pm further refills, if needed, per Palliative or PCP cyclobenzaprine hydrochloride 5 mg oral tablet (20 sources) Muscle Relaxant Start: 08-03-2020 End: 08-17-2020 take 5 mg by mouth every eight hours Cyclobenzaprine Discontinued 5 MG PO Q8H August 03, 2020 12:00am August 17, 2020 9:43am Start: 07-26-2020 End: 07-26-2020 take 5 mg by mouth three times daily Cyclobenzaprine Discontinued 5 MG PO Three times daily July 26, 2020 12:00am July 26, 2020 4:21pm Start: 12-04-2019 End: 06-06-2020 take 5 mg by mouth every eight hours Cyclobenzaprine Discontinued 5 MG PO Q8H December 04, 2019 1:34pm June 06, 2020 4:24pm dexamethasone 4 mg oral tablet (17 sources) Corticosteroid Start: 08-17-2020 End: 09-01-2020 take 4 mg by mouth once daily Dexamethasone Discontinued 4 MG PO Daily August 17, 2020 12:00am September 01, 2020 2:42pm docusate sodium 50 mg / sennosides, correction 8.6 mg oral tablet (20 sources) Start: 11-29-2019 End: 06-06-2020 take 1 tablet by mouth twice daily Sennosides-Docusat e Sodium (Senexon-S) 8.6-50 mg tablet Discontinued 1 TAB PO Twice daily December 01, 2019 1:23pm June 06, 2020 4:22pm escitalopram 10 mg oral tablet (20 sources) Serotonin Reuptake Inhibitor Start: 12-01-2019 End: 09-01-2020 take 2 tablets by mouth once daily in the morning Escitalopram Oxalate (Lexapro) 10 mg tablet Discontinued 20 MG PO Every morning December 01, 2019 12:00am September 01, 2020 2:42pm TAKE 2 TABLETS BY MOUTH ONE TIME A DAY Start: 08-04-2019 End: 12-01-2019 take 5 mg by mouth once daily Escitalopram Oxalate Dis continued 5 MG PO Daily August 04, 2019 12:00am December 01, 2019 1:23pm 60 actuat fluticasone propionate 0.25 mg/actuat / salmeterol 0.05 mg/actuat dry powder inhaler (20 sources) Corticosteroid, beta2-Adrenergic Agonist Start: 09-11-2023 End: 01-15-2024 take 1 puff(s) by mouth once Fluticasone-Salmeterol (Advair Diskus) 250-50 MCG/ACT aerosol powder Indications: Chronic obstructive pulmonary disease, unspecified COPD type (CMS/HCC) Use 1 puff in the mouth or throat every 12 (twelve) hours 60 each 2 09/11/2023 01/15/2024 Discontinued (Ineffective) Start: 10-13-2021 End: 09-11-2023 take 1 puff(s) by inhalation once fluticasone-salmeterol (Advair Diskus) 250-50 MCG/DOSE diskus inhaler 1 puff every 12 (twelve) hours. 10/13/2021 09/11/2023 Discontinued (Reorder) Start: 09-09-2021 End: 09-04-2022 Fluticasone Propion-Salmeter ol [...] Active folic acid 1 mg oral tablet (20 sources) Start: 11-16-2023 End: 01-31-2024 take 1 tablet by mouth once daily Folic Acid Discontinued 0 .ROUTE .COMPLEX November 16, 2023 1:25pm January 31, 2024 1:36pm TAKE 1 TABLET BY MOUTH EVERY DAY Start: 07-02-2023 End: 11-16-2023 take 1 tablet by mouth once daily Folic Acid Discontinued 0 .ROUTE .COMPLEX July 02, 2023 10:56am November 16, 2023 1:25pm TAKE 1 TABLET BY MOUTH EVERY DAY Start: 11-01-2022 End: 01-31-2024 folic acid (Folvite) 1 MG ta blet 03/23/2023 01/15/2024 Discontinued Food Supplemt, Lactose-Reduc ed (Ensure) Liquid (17 sources) Start: 05-03-2020 End: 07-25-2020 Food Supplemt, Lactose-Reduc ed (Ensure) Liquid Discontinued 1 EACH PO Twice daily May 03, 2020 12:00am July 25, 2020 1:44pm Start: 05-03-2020 End: 07-25-2020 Food Supplemt, Lactose-Reduc ed (Ensure) Liquid Discontinued 1 EACH PO Twice daily May 03, 2020 1:00am July 25, 2020 2:44pm gabapentin 100 mg oral capsule (17 sources) Anti-epileptic Agent Start: 08-03-2020 End: 02-01-2021 take 200 mg by mouth three times daily Gabapentin Discontinued 200 MG PO Three times daily 180 30 August 03, 2020 12:00am February 01, 2021 10:51am hydroCHLOROthiazide 25 mg oral tablet (17 sources) Thiazide Diuretic Start: 09-22-2017 End: 07-30-2019 take 25 mg by mouth once daily Hydrochlorothiazide Discontinued 25 MG PO Daily September 22, 2017 12:00am July 30, 2019 3:23pm hydrocortisone 5 mg/ml topical cream (17 sources) Corticosteroid Start: 01-20-2020 End: 02-26-2020 Hydrocortisone Discontinued 1 APPLIC TOPICAL Twice daily January 20, 2020 12:00am February 26, 2020 2:07pm HYDROmorphone hydrochloride 1 mg/ml oral solution (20 sources) Opioid Agonist Start: 07-26-2020 End: 07-26-2020 take 1 mg by mouth every six hours Hydromorphone (Dilaudid) 1 mg/mL liquid Discontinued 1 MG PO Q6H July 26, 2020 11:15am July 26, 2020 12:32pm Start: 01-13-2020 End: 07-26-2020 take 5 mg by mouth every six hours Hydromorphone (Dilaudid) 1 mg/mL Liquid Discontinued 5 MG PO Q6H 140 7 January 14, 2020 July 26, 2020 11:15am hydrOXYzine hydrochloride 25 mg oral tablet (17 sources) Antihistamine Start: 09-22-2017 End: 07-30-2019 take 25 mg by mouth every six hours Hydroxyzine Hcl Discontinued 25 MG PO Q6H 30 September 22, 2017 12:00am July 30, 2019 3:24pm loperamide hydrochloride 2 mg oral tablet (17 sources) Opioid Agonist Start: 05-16-2020 End: 06-06-2020 Loperamide (Imodium A-D) 2 mg Tablet Discontinued 2 MG PO Every 2 hours May 16, 2020 1:00am June 06, 2020 4:23pm after each loose stool until symptoms controlled; do not exceed 16 mg total dose in 24 hrs LORazepam 1 mg oral tablet (17 sources) Benzodiazepine Start: 03-02-2020 End: 02-01-2021 take 1 tablet by mouth every six hours Lorazepam (Ativan) 1 mg Tablet Discontinued 1 MG PO Q6H March 02, 2020 12:00am February 01, 2021 10:52am prescription given to patient on 03/02/20 for #90 RF x3 losartan potassium 50 mg oral tablet (17 sources) Angiotensin 2 Receptor Joel Start: 09-22-2017 End: 07-30-2019 take 50 mg by mouth twice daily Losartan Discontinued 50 MG PO Twice daily September 22, 2017 12:00am July 30, 2019 3:24pm Magic Mouth Wash (17 sources) Start: 12-30-2019 End: 07-26-2020 Magic Mouth [...] six megestrol acetate 125 mg/ml oral suspension (17 sources) Progestin Start: 07-26-2020 End: 08-17-2020 take 1 mL by mouth once daily Megestrol Discontinued 5 ML PO Daily July 26, 2020 12:00am August 17, 2020 9:43am metoprolol tartrate 25 mg oral tablet (19 sources) beta-Adrenergic Joel Start: 09-09-2021 End: 04-10-2022 take 12.5 mg by mouth twice daily Metoprolol Tartrate Discontinued 12.5 MG PO Twice daily September 09, 2021 12:00am April 10, 2022 3:05pm Start: 09-08-2021 take 0.5 tablet by m [...] PO Daily at bedtime June 15, 2022 1:00am September 04, 2022 11:23am Start: 09-01-2020 End: 02-01-2021 take 1 tablet by mouth once daily at bedtime Mirtazapine (Remeron) 45 mg Tablet Discontinued 45 MG PO Daily at bedtime September 01, 2020 12:00am February 01, 2021 10:52am Start: 08-03-2020 End: 08-17-2020 take 15 mg by mouth once daily at bedtime Mirtazapine Discontinued 15 MG PO Daily at bedtime August 03, 2020 12:00am August 17, 2020 9:43am morphine sulfate 15 mg extended release oral tablet (17 sources) Opioid Agonist Start: 12-16-2019 End: 02-26-2020 take 15 mg by mouth every twelve hours Morphine Discontinued 15 MG PO Q12H December 16, 2019 12:00am February 26, 2020 2:07pm 24 hr nicotine 0.875 mg/hr transdermal system (20 sources) Cholinergic Nicotinic Agonist Start: 08-03-2020 End: 08-17-2020 Nicotine Discontinued 1 EACH TRANSDERML Daily August 03, 2020 12:00am August 17, 2020 9:43am Start: 08-04-2019 End: 11-18-2019 Nicotine Discontinued 1 EACH TRANSDERML Daily August 04, 2019 12:00am November 18, 2019 12:50pm 24 hr nitroglycerin 0.4 mg/hr transdermal system (20 sources) Nitrate Vasodilator Start: 09-08-2021 End: 02-27-2022 apply 1 dose transdermal route once daily Nitroglycerin Discontinued 1 PATCH TRANSDERML Daily September 09, 2021 12:00am February 27, 2022 2:33pm Start: 04-05-2021 Nitroglycerin 0.4 MG Sublingual Tablet [...] 5 to 15 minutes April 05, 2021 1:00am February 27, 2022 2:34pm do not exceed 3 doses per episode nitroglycerin (N itrostat) 0.4 MG SL tablet 1 (one) time each day at the same time. Active nystatin 525115 unt/ml oral suspension (17 sources) Polyene Antifungal Start: 07-26-2020 End: 08-17-2020 Nystatin Discontinued 4 ML MUCOUS MEM Four times daily July 26, 2020 12:00am August 17, 2020 9:43am omeprazole 20 mg delayed release oral tablet (6 sources) Proton Pump Inhibitor Start: 01-15-2024 End: 04-14-2024 take 1 tablet by mouth in the morning omeprazole OTC (PriLOSEC OTC) 20 MG EC tablet Indications: Gastroesophageal reflux disease without esophagitis Take 1 tablet (20 mg) by mouth in the morning and 1 tablet (20 mg) before bedtime. Do not crush, chew, or split.. 180 tablet 01/15/2024 02/04/2024 Discontinued (Therapy completed) ondansetron 4 mg oral tablet (20 sources) Serotonin-3 Receptor Antagonist Start: 12-25-2023 End: 01-01-2024 take 1 tablet by mouth every eight hours for nausea ondansetron (Zofran) 4 MG tablet Indications: Generalized abdominal pain Take 1 tablet (4 mg) by mouth every 8 (eight) hours if needed for nausea for up to 7 days 21 tablet 12/25/2023 01/01/2024 Start: 06-05-2022 End: 01-15-2024 ondansetron (Zofran) 4 MG ta blet 1 (one) time each day at the same time. 06/05/2022 01/15/2024 Discontinued Start: 07-26-2020 End: 08-17-2020 Ondansetron Discontinued 8 M G PO every 6 to 8 hours July 26, 2020 11:15am August 17, 2020 9:43am Start: 05-16-2020 End: 07-26-2020 Ondansetron Discontinued 4 M G PO every 6 to 8 hours May 16, 2020 1:00am July 26, 2020 11:15am Start: 11-18-2019 End: 11-18-2019 take 1 tablet by mouth every eight hours Ondansetron Hcl (Zofran) 8 mg Tablet Discontinued 8 MG PO Q8H November 18, 2019 12:00am November 18, 2019 1:47pm OXcarbazepine 600 mg oral tablet (17 sources) Anti-epileptic Agent Start: 09-01-2020 End: 02-01-2021 take 1 tablet by mouth twice daily Oxcarbazepine (Trileptal) 600 mg Tablet Discontinued 600 MG PO Twice daily September 01, 2020 12:00am February 01, 2021 10:52am oxyCODONE hydrochloride 15 mg oral tablet (20 sources) Opioid Agonist Start: 08-17-2020 End: 02-01-2021 Oxycodone (Roxicodone) 15 mg tablet Discontinued 20 MG PO Q8H August 17, 2020 9:42am February 01, 2021 10:52am Start: 08-03-2020 End: 08-17-2020 Oxycodone (Roxicodone) 15 mg tablet Discontinued 10 MG PO Q6H 0 August 03, 2020 11:15am August 17, 2020 9:44am Start: 06-15-2020 End: 07-25-2020 take 10 mg by mouth every six hours Oxycodone Discontinued 10 MG PO Q6H 56 June 15, 2020 July 25, 2020 2:41pm Start: 02-26-2020 End: 08-03-2020 take 1 tablet by mouth every six hours Oxycodone (Roxicodone) 15 mg tablet Discontinued 15 MG PO Q6H February 26, 2020 12:00am August 03, 2020 11:18am Start: 01-15-2020 End: 02-26-2020 take 15 mg by mouth every four hours Oxycodone Discontinued 15 MG PO Q4H January 15, 2020 12:00am February 26, 2020 3:34pm Start: 11-29-2019 End: 12-04-2019 take 1 tablet by mouth every six hours Oxycodone (Roxicodone) 5 mg tablet Discontinued 5 MG PO Every 6 hours December 01, 2019 1:23pm December 04, 2019 2:33pm Further refills, if needed, per Palliative or PCP potassium chloride 20 meq powder for oral solution (20 sources) Start: 01-24-2020 End: 02-10-2020 take 20 mEq by mouth once daily Potassium Chloride Discontinued 20 MEQ PO Daily January 24, 2020 12:00am February 10, 2020 1:07pm Start: 11-29-2019 End: 02-26-2020 take 10 mEq by mouth once daily Potassium Chloride Discontinued 10 MEQ PO Daily November 29, 2019 12:00am February 26, 2020 2:07pm Take with Lasix. predniSONE 50 mg oral tablet (20 sources) Start: 09-01-2020 End: 02-01-2021 take 60 mg by mouth once daily Prednisone Discontinued 60 MG PO Daily September 01, 2020 12:00am February 01, 2021 10:52am Start: 12-23-2019 End: 02-10-2020 take 50 mg by mouth once daily Prednisone Discontinued 50 MG PO Daily 02 20December 25, 2019 1:33pm February 10, 2020 1:06pm take 50 mg a day x 10 days prochlorperazine 10 mg oral tablet (17 sources) Phenothiazine Start: 11-20-2019 End: 12-01-2019 take 1 tablet by mouth every six hours for nausea Prochlorperazine Maleate (Compazine) 10 mg Tablet Discontinued 10 MG PO Q6H November 20, 2019 12:00am December 01, 2019 1:54pm take for nausea promethazine hydrochloride 25 mg oral tablet (20 sources) Phenothiazine Start: 06-06-2020 End: 08-17-2020 take 25 mg by mouth three times daily Promethazine Discontinued 25 MG PO Three times daily June 06, 2020 4:25pm August 17, 2020 9:43am Start: 05-16-2020 End: 06-06-2020 take 25 mg by mouth every six hours Promethazine Discontinued 25 MG PO Q6H May 16, 2020 1:00am June 06, 2020 4:25pm Sennosides (17 sources) Start: 07-26-2020 End: 07-26-2020 take 8.6 mg by mouth twice daily Sennosides Discontinued 8.6 MG PO Twice daily July 25, 2020 11:00pm July 26, 2020 3:21pm Start: 07-26-2020 End: 07-26-2020 take 8.6 mg by mouth twice daily Sennosides Discontinued 8.6 MG PO Twice daily July 26, 2020 12:00am July 26, 2020 4:21pm Sennosides (Senna Lax) 8.6 mg Tablet (17 sources) Start: 08-03-2020 End: 08-17-2020 take 2 tablets by mouth twice daily Sennosides (Senna Lax) 8.6 mg Tablet Discontinued 2 TAB PO Twice daily 120 August 02, 2020 11:00pm August 17, 2020 8:43am Start: 08-03-2020 End: 08-17-2020 take 2 tablets by mouth twice daily Sennosides (Senna Lax) 8.6 mg Tablet Discontinued 2 TAB PO Twice daily 120 August 03, 2020 12:00am August 17, 2020 9:43am sodium chloride 1000 mg oral tablet (11 sources) Start: 12-21-2023 End: 03-17-2024 take 1 tablet by mouth in the morning, then take 1 tablet by mouth in the evening, then take 1 tablet by mouth at bedtime sodium chloride 1 g tablet Take 1 g by mouth in the morning and 1 g in the evening and 1 g before bedtime. 12/21/2023 03/17/2024 Discontinued (Therapy completed) Sucralfate (Carafate) 100 mg/mL Suspension (17 sources) Start: 01-21-2020 End: 07-26-2020 take 1 [...] 01-07-2020 Kenalog -40 mg Dec, 40 mg vitamin b12 1 mg oral tablet (20 sources) Vitamin B12 Start: 06-29-2023 End: 06-17-2024 take 1 tablet by mouth once daily cyanocobalamin (Vitamin B-12) 1000 MCG tablet Take 1,000 mcg by mouth Daily 06/29/2023 06/17/2024 Discontinued (Therapy completed) Problems Active Problems Problem Classification Problem Date Documented Da te Episodic/Chronic Acute myocardial infarction (20 sources) Myocardial infarction; Translations: [Non-ST elevation (NSTEMI) myocardial infarction] Onset: 0 02-25-2020 Chronic Alcohol-related disorders (20 sources) Alcohol intoxication; Translations: [Alcohol dependence, uncomplicated] Onset: 0 Resolved: 4 09-22-2017 Chronic Anxiety disorders (20 sources) Anxiety; Translations: [Anxiety disorder, unspecified] Onset: 0 11-18-2019 Chronic Cancer of bronchus; lung (20 sources) Malignant tumor of lung; Translations: [Malignant neoplasm of bronchus and lung, unspecified] Onset: 0 Resolved: 2 Chronic Cataract (20 sources) Bilateral age-related nuclear cataracts; Translations: [Age-related nuclear cataract, bilateral] Onset: 4 10-31-2023 Chronic Chronic obstructive pulmonary disease and bronchiectasis (20 [...] Translations: [Other and unspecified angina pectoris] Chronic Disorders of teeth and jaw (20 sources) Gingivitis; Translations: [Chronic gingivitis, plaque induced] Onset: 3 09-25-2022 Chronic Esophageal disorders (20 sources) Gastroesophageal reflux disease; Translations: [Gastro-esophageal reflux disease without esophagitis] Onset: 3 09-25-2022 Chronic Essential hypertension (20 sources) Hypertensive disorder; Translations: [Essential (primary) hypertension] Onset: 8 02-26-2020 Chronic Glaucoma (20 sources) Preglaucoma, unspecified, bilateral; Translations: [Preglaucoma, unspecified] Onset: 4 10-31-2023 Chronic Malignant neoplasm without specification of site (20 sources) Small cell carcinoma; 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, unspecified] Onset: 3 09-25-2022 Chronic Miscellaneous mental health disorders (4 sources) Primary insomnia; Translations: [Primary insomnia] 01-15-2024 Chronic Mood disorders (20 sources) Major depressive disorder, single episode, unspecified; Translations: [Depression] Onset: 8 Resolved: 2 Chronic Nonspecific chest pain (20 sources) Chest pain; Translations: [Chest pain, unspecified] Onset: 3 11-27-2019 Episodic Nutritional deficiencies (20 sources) Vitamin D deficiency; Translations: [Vitamin D deficiency, unspecified] Onset: 3 09-25-2022 Chronic Osteoarthritis (20 sources) Osteoarthritis; Translations: [Unspecified osteoarthritis, unspecified site] Onset: 3 09-25-2022 Chronic Other aftercare (1 source) Other mcc (current) drug therapy; Translations: [OTH ASSISTED CURRENT DRUG THERAPY] Onset: 3 Episodic Other aftercare (1 source) longterm (current) use of aspirin; Translations: [RESEARCH PSYCHOLOGIST CURRENT USE OF ASPIRIN] Onset: 3 Episodic Other aftercare (4 sources) Encounter for follow-up examination after completed treatment for conditions other than malignant neoplasm; Translations: [Unspecified follow-up examination] 01-15-2024 Episodic Other gastrointestinal disorders (19 sources) Constipation; Translations: [Constipation, unspecified] 09-02-2020 Episodic Other gastrointestinal disorders (14 sources) Diarrhea, unspecified; Translations: [Diarrhea] 02-27-2022 Episodic Other gastrointestinal disorders (2 sources) Constipation, unspecified; Translations: [Constipation, unspecified] 01-31-2024 Episodic Other inflammatory condition of skin (2 sources) Erythema of skin; Translations: [Other specified erythematous conditions] 06-16-2024 Episodic Other lower respiratory disease (3 sources) Lung field abnormal; Translations: [Other nonspecific abnormal finding of lung field] Episodic Other lower respiratory disease (8 sources) Shortness of breath; Translations: [Shortness of breath] Onset: 2 Episodic Other lower respiratory disease (4 sources) Pleurodynia; Translations: [PLEURODYNIA] Onset: 3 Episodic Other male genital disorders (20 sources) Secondary erectile dysfunction; Translations: [Erectile dysfunction due to diseases classified elsewhere] Onset: 3 09-25-2022 Chronic Other nervous system disorders (3 sources) Chronic pain; Translations: [Other chronic pain] Chronic Other nervous system disorders (3 sources) Intercostal neuralgia; 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] Chronic Other nervous system disorders (1 source) Other chronic pain Onset: 2 Resolved: 2 Chronic Other nervous system disorders (14 sources) Neoplasm related pain (acute) (chronic); Translations: [Neoplasm related pain (acute) (chronic)] 02-27-2022 Chronic Other nervous system disorders (20 sources) Peripheral nerve disease ; Translations: [Unspecified mononeuropathy of right upper limb] Onset: 3 09-25-2022 Chronic Other nervous system disorders (20 sources) Thoracic outlet syndrome; Translations: [Brachial plexus disorders] Onset: 3 09-25-2022 Chronic Other nervous system disorders (3 sources) Paresthesia; Translations: [Paresthesia of skin] Episodic Other non-traumatic joint disorders (14 sources) Pain in unspecified joint; Translations: [Pain in joint, site unspecified] 02-27-2022 Episodic Other nutritional; endocrine; and metabolic disorders (20 sources) Hypoalbuminemia; Translations: [Other disorders of plasma-protein metabolism, not elsewhere classified] Onset: 3 09-25-2022 Chronic Other nutritional; endocrine; and metabolic disorders (8 sources) Abnormal weight loss; Translations: [Loss of weight] 09-19-2022 Episodic Other skin disorders (2 sources) Epidermoid cyst; Translations: [Epidermal cyst] 06-16-2024 Episodic Other skin disorders (2 sources) Loss of hair; Translations: [Nonscarring hair loss, unspecified] 06-17-2024 Episodic Other skin disorders (2 sources) Xeroderma; Translations: [Xerosis cutis] 06-17-2024 Episodic Peripheral and visceral atherosclerosis (2 sources) Atherosclerosis of aorta; Translations: [Atherosclerosis of aorta] 03-17-2024 Chronic Pulmonary heart disease (4 sources) Idiopathic pulmonary arterial hypertension ; Translations: [Primary pulmonary hypertension] 01-06-2024 Chronic Residual codes; unclassified (20 sources) Sleep apnea; Translations: [Sleep apnea, unspecified] Onset: 3 09-25-2022 Chronic Residual codes; unclassified (2 sources) Body mass index 20-24 - normal; Translations: [Body Mass Index between 19-24, adult] Episodic Residual codes; unclassified (14 sources) Edema, unspecified; Translations: [Edema] 02-27-2022 Episodic Residual codes; unclassified (1 source) Pain, unspecified; Translations: [Pain, unspecified] Onset: 4 Episodic Screening and history of mental health and substance abuse codes (3 sources) Ex-smoker; Translations: [Personal history of tobacco use] Onset: 3 Episodic Comment on above: quit 2020 1ppd; Substance-related disorders (20 sources) Tobacco user; Translations: [Nicotine dependence, cigarettes, uncomplicated] Onset: 3 09-25-2022 Chronic Thyroid disorders (20 sources) Hypothyroidism; Translations: [Hypothyroidism, unspecified] Onset: 4 Resolved: 4 01-02-2024 Chronic Unclassified (1 source) Unknown / UNK(Unknown) Onset: 8 Unclassified (1 source) CONTACT W/AND (SUSP) EXPOS COVID-19; Translations: [CONTACT W/AND (SUSP) EXPOS COVID-19] Onset: 2 Past or Other Problems Problem Classification Problem Date Documented Da te Episodic/Chronic Abdominal pain (20 sources) Abdominal pain; Translations: [Unspecified abdominal pain] Onset: 11-08-2023 Resolved: 04-03-2024 05-16-2020 Episodic Administrative/social admission (20 sources) Patient encounter status; Translations: [Other specified counseling] Onset: 11-08-2023 Resolved: 11-08-2023 12-03-2019 Episodic Cancer of bronchus; lung (20 sources) History of malignant neoplasm of thoracic cavity structure; Translations: [Personal history of other malignant neoplasm of bronchus and lung] Onset: 08-13-2020 06-06-2020 Episodic Cardiac dysrhythmias (20 sources) Tachycardia; Translations: [Tachycardia, unspecified] Onset: 11-08-2023 Resolved: 11-08-2023 06-16-2022 Episodic Deficiency and other anemia (20 sources) Anemia; Translations: [Anemia, unspecified] Onset: 11-08-2023 Resolved: 11-08-2023 12-03-2019 Episodic E Codes: Adverse effects of medical drugs (20 sources) Angiotensin-converti ng-enzyme inhibitor adverse reaction; Translations: [Adverse effect of angiotensin-converti ng-enzyme inhibitors, initial encounter] Onset: 11-08-2023 Resolved: 11-08-2023 09-22-2017 Episodic Fluid and electrolyte disorders (20 sources) Hyponatremia; Translations: [Hypo-osmolality and hyponatremia] Onset: 11-08-2023 Resolved: 01-02-2024 12-01-2019 Episodic Genitourinary symptoms and ill-defined conditions (20 sources) Pyuria; Translations: [Pyuria] Onset: 11-08-2023 Resolved: 11-08-2023 08-04-2020 Episodic Lymphadenitis (20 sources) Lymphadenopathy; Translations: [Generalized enlarged lymph nodes] Onset: 11-08-2023 Resolved: 11-08-2023 12-01-2019 Episodic Mood disorders (20 sources) Mood disorders; Translations: [DEPRESSION UNSPECIFIED] Onset: 04-12-2023 Resolved: 06-17-2024 04-12-2023 Nausea and vomiting (20 sources) Nausea; Translations: [Nausea] Onset: 11-08-2023 Resolved: 11-08-2023 06-06-2020 Episodic Other aftercare (1 source) Encounter for palliative care Onset: 09-13-2021 Resolved: 09-13-2021 Episodic Other bone disease and musculoskeletal deformities (20 sources) Tietze's disease; Translations: [Chondrocostal junction syndrome [Tietze]] Onset: 12-21-2023 Resolved: 01-02-2024 01-02-2024 Episodic Other connective tissue disease (20 sources) Mass of soft tissue of right upper limb; Translations: [Other specified soft tissue disorders] Onset: 09-25-2022 09-25-2022 Episodic Other connective tissue disease (20 sources) Disorder of soft tissue; Translations: [Soft tissue disorder, unspecified] Onset: 10-21-2019 10-19-2022 Episodic Other gastrointestinal disorders (20 sources) Diarrhea; Translations: [Diarrhea, unspecified] Onset: 11-08-2023 Resolved: 11-08-2023 05-16-2020 Episodic Other gastrointestinal disorders (14 sources) Personal history of other diseases of the digestive system; Translations: [History of small bowel obstruction] Onset: 04-03-2024 Resolved: 04-03-2024 01-31-2024 Episodic Other liver diseases (20 sources) Elevated liver enzymes level; Translations: [Abnormal levels of other serum enzymes] Onset: 06-18-2018 10-19-2022 Episodic Other lower respiratory disease (20 sources) Dyspnea; Translations: [Shortness of breath] Onset: 11-08-2023 Resolved: 11-08-2023 06-22-2022 Episodic Other nervous system disorders (20 sources) Pain due to neoplastic disease; Translations: [Neoplasm related pain (acute) (chronic)] Onset: 11-08-2023 Resolved: 11-08-2023 09-02-2020 Chronic Other nervous system disorders (1 source) Other acute postprocedural pain; Translations: [OTHER ACUTE POSTPROCEDURAL PAIN] Onset: 06-20-2022 Episodic Other nervous system disorders (20 sources) Allodynia; Translations: [Other disturbances of skin sensation] Onset: 09-25-2022 09-25-2022 Episodic Other non-traumatic joint disorders (20 sources) Joint pain; Translations: [Pain in unspecified joint] Onset: 11-08-2023 Resolved: 11-08-2023 12-23-2019 Episodic Other nutritional; endocrine; and metabolic disorders (20 sources) Weight loss; Translations: [Abnormal weight loss] Onset: 11-08-2023 Resolved: 11-08-2023 09-04-2022 Episodic Other nutritional; endocrine; and metabolic disorders (20 sources) Loss of appetite; Translations: [Anorexia] Onset: 05-29-2018 09-25-2022 Episodic Other nutritional; endocrine; and metabolic disorders (20 sources) Decrease in appetite; Translations: [Anorexia] Onset: 09-25-2022 09-25-2022 Episodic Other screening for suspected conditions (not mental disorders or infectious disease) (20 sources) Liver function tests abnormal; Translations: [Abnormal results of liver function studies] Onset: 09-25-2022 09-25-2022 Episodic Other skin disorders (2 sources) Lump on face; Translations: [Localized swelling, mass and lump, head] 01-18-2024 Episodic Pancreatic disorders (not diabetes) (20 sources) Pancreatitis; Translations: [Acute pancreatitis without necrosis or infection, unspecified] Onset: 09-25-2022 09-25-2022 Episodic Pleurisy; pneumothorax; pulmonary collapse (20 sources) Pneumothorax; Translations: [Pneumothorax, unspecified] Onset: 08-29-2022 Resolved: 11-08-2023 11-27-2019 Episodic Residual codes; unclassified (20 sources) Finding of region of thorax; Translations: [Presence of other specified functional implants] Onset: 11-08-2023 Resolved: 11-08-2023 10-26-2022 Chronic Residual codes; unclassified (20 sources) Amnesia; Translations: [Other amnesia] Onset: 11-08-2023 Resolved: 11-08-2023 07-25-2020 Episodic Residual codes; unclassified (20 sources) Edema; Translations: [Edema, unspecified] Onset: 11-08-2023 Resolved: 11-08-2023 12-03-2019 Episodic Residual codes; unclassified (20 sources) Altered mental status; Translations: [Altered mental status, unspecified] Onset: 11-08-2023 Resolved: 11-08-2023 08-04-2020 Episodic Residual codes; unclassified (20 sources) Insomnia; Translations: [Insomnia, unspecified] Onset: 09-25-2022 09-25-2022 Episodic Residual codes; unclassified (20 sources) Statin declined; Translations: [Procedure and treatment not carried out because of patient's decision for unspecified reasons] Onset: 09-10-2023 09-10-2023 Episodic Septicemia (except in labor) (20 sources) Infection due to Escherichia coli; Translations: [Sepsis due to Escherichia coli [E. coli]] Onset: 01-02-2024 Resolved: 01-02-2024 01-02-2024 Episodic Spondylosis; intervertebral disc disorders; other back problems (20 sources) Neck pain; Translations: [Cervicalgia] Onset: 11-08-2023 Resolved: 11-08-2023 12-09-2019 Episodic Suicide and intentional self-inflicted injury (20 sources) Suicidal thoughts; Translations: [Suicidal ideations] Onset: 11-08-2023 Resolved: 11-08-2023 11-18-2019 Episodic Urinary tract infections (2 sources) Urinary tract infectious disease; Translations: [Urinary tract infection, site not specified] 12-25-2023 Episodic Results Test Name Value Interpretation Reference Range Facility [facility] 2024 [facility] IRON 90 ug/dL 65.0 - 175.0 ug/dL [facility]H PERCENT IRON SATURATION 36 % [facility] TB TOTAL IRON BINDING CAPACITY 250 ug/dL 250.0 - 450.0 ug/dL [facility] Amphetamine Screen Ql (U)Ord ered By: Cathi Miranda on 02-18-2024 Amphetamines Ql (U) Negative Negative [facility] Barbiturates [Presence] in U rine by Screen methodOrdered By: Cathi Miranda on 02-18-2024 Barbiturates Screen Ql (U) Negative Negative [facility] Benzodiazepines Screen Ql (U )Ordered By: Cathi Miranda on 02-18-2024 Benzodiazepines Ql (U) Negative Negative [facility] Benzoylecgonine [Presence] i n Urine by Screen methodOrdered By: Cathi Miranda on 02-18-2024 Benzoylecgonine Screen Ql (U) Negative Negative [facility] Cannabinoids [Presence] in U rine by Screen methodOrdered By: Cathi Miranda on 02-18-2024 Cannabinoids Screen Ql (U) Positive High Negative [facility] Comment on above: These are unconfirme d results and should not be used for legal purposes. Drug Cut-Off Concentration: AMPH 1000 ng/mL ZUNILDA 200 ng/mL SHIVANI 200 ng/mL COCM 300 ng/mL OP 300 ng/mL PCP 25 ng/mL THC 20 ng/mL Drug Screen,Urineon 02-18-20 24 Amphetamine Screen,Urine Negative Normal Negative [facility] Comment on above: Performed By: #### U RDS #### [address] Barbiturate Screen,Urine Negative Normal Negative [facility] Comment on above: Performed By: #### U RDS #### [address] Benzodiazepines Screen,Urine Negative Normal Negative [facility] Comment on above: Performed By: #### U RDS #### [address] Cannabinoid Screen,Urine Positive High Negative [facility] Comment on above: Result Comment: Thes e are unconfirmed results and should not be used for legal purposes. Drug Cut-Off Concentration: AMPH 1000 ng/mL ZUNILDA 200 ng/mL SHIVANI 200 ng/mL COCM 300 ng/mL OP 300 ng/mL PCP 25 ng/mL THC 20 ng/mL PERFORMED BY: [place] [address] PATHOLOGIST BRANCH OFFICE ADMINISTRATOR CATY DELCID M.D. Performed By: #### U RDS #### [place] [address] [place] Cocaine Screen,Urine Negative Normal Negative [facility] Comment on above: Performed By: #### U RDS #### [place] [address] [place] Opiate Screen,Urine Negative Normal Negative [facility] Comment on above: Performed By: #### U RDS #### [address] Phencyclidine Screen,Urine Negative Normal Negative [facility] Comment on above: Performed By: #### U RDS #### [place] [address] [facility] Opiates [Presence] in Urine by Screen methodOrdered By: Cathi Miranda on 02-18-2024 Opiates Screen Ql (U) Negative Negative [facility] Pathology Request for Lab Co rpon 02-18-2024 Pathology Request for Lab [place] Normal [facility] Comment on above: Order Comment: PATHO LOGY GI SPECIMEN Result Comment: See report. Scanned copy available in EMR. PERFORMED BY: [facility] [address] [facility] [place] [id number] PATHOLOGIST BRANCH OFFICE ADMINISTRATOR CATY DELCID M.D. Performed By: #### U RDS #### [facility] [address] Phencyclidine Screen Ql (U)O rdered By: Cathi Miranda on 02-18-2024 Phencyclidine Ql (U) Negative Negative [facility] Bacteria identified Cx Nom ( U)on 12-27-2023 Appearance (U) Adequate [facility] Internal identifier for Provider [id number] [facility] Specimen source Nom (Unsp spec) URINE, CLEAN CATCH [facility] STATUS FINAL [facility] Performing Organizat ion Information Site ID: QPT Name: [facility] Address: [address] [place] [address], [address] [place] [id number] Director: Jose Luis Lam MD [facility] - Microbiology an d Antimicrobial susceptibilityon 12-27-2023 Bacteria identified Cx Nom (U) SEE NOTE [facility] Comment on above: Mixed genital zaid isolated. These superficial bacteria are not indicative of a urinary tract infection. No further organism identification is warranted on this specimen. If clinically indicated, recollect clean-catch, mid-stream urine and transfer immediately to Urine Culture Transport Tube. Urinalysis macro (dipstick) panel (U)on 12-25-2023 Bilirubin, UA Negative Negative - 4(70) +++ mg/dL [facility] Blood, UA Positive Negative - 50 Alhaji/mcL [facility] Clarity, UA Clear [facility] Color, UA Yellow [facility] Glucose, UA Negative Negative - 2000(110) ++++ mg/dL [facility] Interpretation and review of laboratory results Abnormal [facility] Ketones, UA Negative Negative - 160(16) ++++ mg/dL [facility] Leukocytes, UA Moderate Negative - 500+++ Mc/mcL [facility] Nitrite, UA Negative Negative - Positive [facility] pH, UA 6.0 5 - 9 [facility] Protein, UA Positive Negative - 2000(20) ++++ mg/dL [facility] Spec Grav, UA 1.015 1 - 1.03 [facility] Urobilinogen, UA 0.2 0.2 - 12 mg/dL [facility] Alanine aminotransferase [En zymatic activity/volume] in Serum or PlasmaOrdered By: Estela Varma on 06-25-2023 ALT [Catalytic activity/Vol] 14 U/L Normal 7-52 [facility] Comment on above: Performed By: #### F E and TIBC, CEA, T4F, TSH3, YUSUF, [id number], CMP, CBC, MARILU, LIPASE #### [facility] [address] [place] [address] [place] #### METH #### [facility] , Albumin [Mass/volume] in Ser um or Plasma by Bromocresol green (BCG) dye binding methoOrdered By: Estela Varma on 06-25-2023 Albumin BCG dye [Mass/Vol] 3.9 g/dL 3.5-5.7 [facility] Alkaline phosphatase [Enzyma tic activity/volume] in Serum or PlasmaOrdered By: Estela Varma on 06-25-2023 ALP [Catalytic activity/Vol] 126 U/L High 34-104 [facility] Comment on above: Performed By: #### F E and TIBC, CEA, T4F, TSH3, YUSUF, [id number], CMP, CBC, MARILU, LIPASE #### [facility] [address] [place] [address] [place] #### METH #### [facility] , Amylase [Enzymatic activity/ volume] in Serum or PlasmaOrdered By: Estela Varma on 06-25-2023 Amylase [Catalytic activity/Vol] 52 U/L Normal 29-103 [facility] Comment on above: Performed By: #### F E and TIBC, CEA, T4F, TSH3, YUSUF, [id number], CMP, CBC, MARILU, LIPASE #### [facility] [address] [place] [address] #### METH #### [facility] , Aspartate aminotransferase [ Enzymatic activity/volume] in Serum or PlasmaOrdered By: Estela Varma on 06-25-2023 AST [Catalytic activity/Vol] 30 U/L Normal 13-39 [facility] Comment on above: Performed By: #### F E and TIBC, CEA, T4F, TSH3, YUSUF, [id number], CMP, CBC, MARILU, LIPASE #### [place] [address] [place] #### METH #### [facility] , Automated basophil %Ordered By: Estela Varma on 06-25-2023 Basophils/100 WBC (Bld) 1.3 % Normal . [facility] Comment on above: Performed By: #### F E and TIBC, CEA, T4F, TSH3, YUSUF, [id number], CMP, CBC, MARILU, LIPASE #### [address] #### METH #### [facility] , Automated basophil countOrde red By: Estela Varma on 06-25-2023 Basophils (Bld) [#/Vol] 0.1 10*3/uL Normal 0.0-0.2 [facility] Comment on above: Result Comment: PERF ORMED BY: [place] [address] PATHOLOGIST BRANCH OFFICE ADMINISTRATOR CATY DELCID M.D. Performed By: #### F E and TIBC, CEA, T4F, TSH3, YUSUF, [id number], CMP, CBC, MARILU, LIPASE #### [place] [address] [place] #### METH #### [facility] , Automated blood monocyte cou ntOrdered By: Estela Varma on 02-12-2024 Monocytes (Bld) [#/Vol] 0.7 10*3/uL Normal 0.0-0.8 [facility] Comment on above: Performed By: #### F E and TIBC, CEA, T4F, TSH3, YUSUF, [id number], CMP, CBC, MARILU, LIPASE #### [place] [address] [place] #### METH #### [facility] , Automated eosinophil %Ordere d By: Estela Varma on 06-25-2023 Eosinophils/100 WBC (Bld) 2.5 % Normal . [facility] Comment on above: Performed By: #### F E and TIBC, CEA, T4F, TSH3, YUSUF, [id number], CMP, CBC, MARILU, LIPASE #### [address] #### METH #### [facility] , Automated eosinophil countOr dered By: Estela Varma on 06-25-2023 Eosinophils (Bld) [#/Vol] 0.2 10*3/uL Normal 0.0-0.45 [facility] Comment on above: Performed By: #### F E and TIBC, CEA, T4F, TSH3, YUSUF, [id number], CMP, CBC, MARILU, LIPASE #### [place] [address] [place] #### METH #### [facility] , Automated monocyte %Ordered By: Estela Varma on 06-25-2023 Monocytes/100 WBC (Bld) 8.7 % Normal . [facility] Comment on above: Performed By: #### F E and TIBC, CEA, T4F, TSH3, YUSUF, [id number], CMP, CBC, MARILU, LIPASE #### [place] [address] [place] #### METH #### [facility] , Automated neutrophil %Ordere d By: Estela Varma on 06-25-2023 Neutrophils/100 WBC (Bld) 78.2 % Normal . [facility] Comment on above: Performed By: #### F E and TIBC, CEA, T4F, TSH3, YUSUF, [id number], CMP, CBC, MARILU, LIPASE #### [facility] [address] [place] [address] [place] #### METH #### [facility] , Bilirubin.total [Mass/volume ] in Serum or PlasmaOrdered By: Estela Varma on 06-25-2023 Bilirubin [Mass/Vol] 1.0 mg/dL Normal 0.3-1.0 [facility] Comment on above: Performed By: #### F E and TIBC, CEA, T4F, TSH3, YUSUF, [id number], CMP, CBC, MARILU, LIPASE #### [facility] [address] [place] [address] [place] #### METH #### [facility] , CARCINOEMBRYONIC ANTIGENon 0 06-25-2023 Interpretation and review of laboratory results Abnormal [facility] CBC W Auto Differential pane l (Bld)on 06-25-2023 Basophils (Bld) [#/Vol] 0.1 10*3/uL 0.0 - 0.2 10*3/uL [facility] Basophils/100 WBC Manual cnt (Syn fld) 1.3 % . [facility] Eosinophils (Bld) [#/Vol] 0.2 10*3/uL 0.0 - 0.45 10*3/uL [facility] Eosinophils/100 WBC Manual cnt (Syn fld) 2.5 % . [facility] Erythrocyte distribution width (RBC) [Ratio] 15.5 % High 12.0 - 14.8 % [facility] Hematocrit (Bld) [Volume fraction] 40.7 % 38.8 - 50.0 % [facility] Hemoglobin (Bld) [Mass/Vol] 13.7 g/dL 13.0 - 17.0 g/dL [facility] Interpretation and review of laboratory results Abnormal [facility] Lymphocytes (Bld) [#/Vol] 0.8 10*3/uL Low 1.00 - 4.8 10*3/uL [facility] Lymphocytes/100 WBC Manual cnt (Syn fld) 9.3 % . [facility] MCH (RBC) [Entitic mass] 32.9 pg 27.5 - 35.2 pg [facility] MCHC (RBC) [Mass/Vol] 33.7 g/dL 32.5 - 35.6 g/dL [facility] MCV (RBC) [Entitic vol] 97.6 fL 83.5 - 101 fL [facility] Monocytes (Bld) [#/Vol] 0.7 10*3/uL 0.0 - 0.8 10*3/uL [facility] Monocytes+Macrophages /100 WBC Manual cnt (Syn fld) 8.7 % . [facility] Neutrophils (Bld) [#/Vol] 6.5 10*3/uL 1.8 - 7.7 10*3/uL [facility] Neutrophils/100 WBC Manual cnt (Syn fld) 78.2 % . [facility] NRBC 0.2 /100{WBC} 0 - 0.5 /100{WBC} [facility] Platelet mean volume (Bld) [Entitic vol] 7.4 fL 6.6 - 10.1 fL [facility] Platelets (Bld) [#/Vol] 196 10*3/uL 150 - 450 10*3/uL [facility] RBC LM.HPF (Urine sed) [#/Area] 4.17 /[HPF] 3.90 - 5.60 [facility] WBC (Bld) [#/Vol] 8.4 10*3/uL 4.1 - 10.5 10*3/uL [facility] WBC LM.HPF (Urine sed) [#/Area] 8.4 10*3/uL 4.1 - 10.5 10*3/uL [facility] Calcium [Mass/volume] in Ser um or PlasmaOrdered By: Estela Varma on 06-25-2023 Calcium [Mass/Vol] 8.7 mg/dL Normal 8.6-10.3 [facility] Comment on above: Performed By: #### F E and TIBC, CEA, T4F, TSH3, YUSUF, [id number], CMP, CBC, MARILU, LIPASE #### [facility] [address] [place] [address] #### METH #### [facility] , Capillary blood glucose ledy urement by glucometer (mass/volume)Ordered By: Estela Varma on 06-25-2023 Glucose [Mass/Vol] 97 mg/dL Normal [facility] Comment on above: Random Glucose Refer ence Range is dependent on time and content of last meal. Glucose of more than 200 mg/dL in a nonstressed, ambulatory subject supports the diagnosis of Diabetes Mellitus. Result Comment: [place] om Glucose Reference Range is dependent on time and content of last meal. Glucose of more than 200 mg/dL in a nonstressed, ambulatory subject supports the diagnosis of Diabetes Mellitus. PERFORMED BY: [place] [address] PATHOLOGIST BRANCH OFFICE ADMINISTRATOR CATY DELCID M.D. Performed By: #### U RDS #### [address] Carbon dioxide, total [Moles /volume] in Serum or PlasmaOrdered By: Estela Varma on 06-25-2023 CO2 [Moles/Vol] 23.2 mmol/L Normal 21.0-31.0 [facility] Comment on above: Performed By: #### F E and TIBC, CEA, T4F, TSH3, YUSUF, [id number], CMP, CBC, MARILU, LIPASE #### [address] #### METH #### [facility] , Chloride [Moles/volume] in S coral or PlasmaOrdered By: Estela Varma on 06-25-2023 Chloride [Moles/Vol] 96 mmol/L Low 98-107 [facility] Comment on above: Performed By: #### F E and TIBC, CEA, T4F, TSH3, YUSUF, [id number], CMP, CBC, MARILU, LIPASE #### [place] [address] [place] #### METH #### [facility] , Complete Blood Count Auto Di ffon 06-25-2023 Mean Corpuscular HGB Conc 33.7 g/dL Normal 32.5-35.6 [facility] Comment on above: Performed By: #### F E and TIBC, CEA, T4F, TSH3, YUSUF, [id number], CMP, CBC, MARILU, LIPASE #### [place] [address] [place] #### METH #### [facility] , NRBC% 0.2 /100{WBC} Normal 0-0.[address] [facility] Comment on above: Performed By: #### F E and TIBC, CEA, T4F, TSH3, YUSUF, [id number], CMP, CBC, MARILU, LIPASE #### [place] [address] [place] #### METH #### [facility] , Comprehensive Metabolic Pane nicolas 06-25-2023 Albumin [Mass/Vol] 3.9 g/dL Normal 3.5-5.7 [facility] Comment on above: Performed By: #### F E and TIBC, CEA, T4F, TSH3, YUSUF, [id number], CMP, CBC, MARILU, LIPASE #### [place] [address] [place] #### METH #### [facility] , Creatinine Clr Calc Pharmacy 108.93 Normal [facility] Comment on above: Performed By: #### F E and TIBC, CEA, T4F, TSH3, YUSUF, [id number], CMP, CBC, MARILU, LIPASE #### [place] [address] [place] #### METH #### [facility] , GFR/1.73 sq M.predicted MDRD (S/P/Bld) [Vol rate/Area] mL/min/{1.73_m2} Normal [facility] Comment on above: Performed By: #### F E and TIBC, CEA, T4F, TSH3, YUSUF, [id number], CMP, CBC, MARILU, LIPASE #### [facility] [address] [place] [address] #### METH #### [facility] , Creatinine [Mass/volume] in Serum or PlasmaOrdered By: Estela Varma on 06-25-2023 Creatinine [Mass/Vol] 0.70 mg/dL Normal 0.70-1.30 [facility] Comment on above: Performed By: #### F E and TIBC, CEA, T4F, TSH3, YUSUF, [id number], CMP, CBC, MARILU, LIPASE #### [address] #### METH #### [facility] , Erythrocyte distribution wid th [Ratio] by Automated countOrdered By: Estela Varma on 06-25-2023 Erythrocyte distribution width (RBC) [Ratio] 15.5 % High 12.0-14.8 [facility] Comment on above: Performed By: #### F E and TIBC, CEA, T4F, TSH3, YUSUF, [id number], CMP, CBC, MARILU, LIPASE #### [address] #### METH #### [facility] , Erythrocytes [#/volume] in B lood by Automated countOrdered By: Estela Varma on 06-25-2023 RBC (Bld) [#/Vol] 4.17 10*6/uL Normal 3.90-5.60 [facility] Comment on above: Performed By: #### F E and TIBC, CEA, T4F, TSH3, YUSUF, [id number], CMP, CBC, MARILU, LIPASE #### [facility] [address] [place] [address] [place] #### METH #### [facility] , Ferritin [Mass/volume] in Se rum or PlasmaOrdered By: Estela Varma on 06-25-2023 Ferritin [Mass/Vol] 207.7 ng/mL Normal 23.9-336.2 [facility] Comment on above: Performed By: #### F E and TIBC, CEA, T4F, TSH3, YUSUF, [id number], CMP, CBC, MARILU, LIPASE #### [facility] [address] [place] [address] [place] #### METH #### [facility] , Folate [Mass/volume] in Seru m or PlasmaOrdered By: Estela Varma on 06-25-2023 Folate [Mass/Vol] 9.6 ng/mL >5.9 [facility] Comment on above: Folate reference ran ge: >5.9 ng/mlThe WHO technical consultation on folate and vitamin [id number] has determined that folate concentrations lessthan 4 ng/ml are considered deficient. GLUCOSE POCT GLUCOMETERSon 0 06-25-2023 Glucose [Mass/Vol] 97 mg/dL [facility] Comment on above: Random Glucose Refer ence Range is dependent on time and content of last meal. Glucose of more than 200 mg/dL in a nonstressed, ambulatory subject supports the diagnosis of Diabetes Mellitus. [facility] Glucose [Mass/volume] in Ser um or PlasmaOrdered By: Estela Varma on 06-25-2023 Glucose [Mass/Vol] 89 mg/dL Normal 70-100 [facility] Comment on above: ADA recommended refe rence rangeRandom Glucose Reference Range is dependent on time and content of last meal. Glucose of more than 200 mg/dL in a nonstressed, ambulatory subject supports the diagnosis of Diabetes Mellitus. Result Comment: [place] om Glucose Reference Range is dependent on time and content of last meal. Glucose of more than 200 mg/dL in a nonstressed, ambulatory subject supports the diagnosis of Diabetes Mellitus. ADA recommended reference range Performed By: #### F E and TIBC, CEA, T4F, TSH3, YUSUF, [id number], CMP, CBC, MARILU, LIPASE #### [facility] [address] [place] [address] [place] #### METH #### [facility] , Hematocrit [Volume Fraction] of Blood by Automated countOrdered By: Estela Varma on 06-25-2023 Hematocrit (Bld) [Volume fraction] 40.7 % Normal 38.8-50.0 [facility] Comment on above: Performed By: #### F E and TIBC, CEA, T4F, TSH3, YUSUF, [id number], CMP, CBC, MARILU, LIPASE #### [address] #### METH #### [facility] , Hemoglobin [Mass/volume] in BloodOrdered By: Estela Varma on 06-25-2023 Hemoglobin (Bld) [Mass/Vol] 13.7 g/dL Normal 13.0-17.0 [facility] Comment on above: Performed By: #### F E and TIBC, CEA, T4F, TSH3, YUSUF, [id number], CMP, CBC, MARILU, LIPASE #### [place] [address] [place] #### METH #### [facility] , Iron [Mass/volume] in Serum or PlasmaOrdered By: Estela Varma on 06-25-2023 Iron [Mass/Vol] 159 ug/dL Normal 50-212 [facility] Comment on above: Performed By: #### F E and TIBC, CEA, T4F, TSH3, YUSUF, [id number], CMP, CBC, MARILU, LIPASE #### [place] [address] [place] #### METH #### [facility] , Iron and TIBC Profileon 06-14 % Iron Saturation 65.7 % High 20-50 [facility] Comment on above: Performed By: #### F E and TIBC, CEA, T4F, TSH3, YUSUF, [id number], CMP, CBC, MARILU, LIPASE #### [place] [address] [place] #### METH #### [facility] , Total Iron Binding Capacity 242 ug/dL Low 255-450 [facility] Comment on above: Performed By: #### F E and TIBC, CEA, T4F, TSH3, YUSUF, [id number], CMP, CBC, MARILU, LIPASE #### [facility] [address] [place] [address] [place] #### METH #### [facility] , Iron binding capacity [Mass/ volume] in Serum or PlasmaOrdered By: Estela Varma on 06-25-2023 Iron binding capacity [Mass/Vol] 242 ug/dL 255-450 [facility] Iron saturation [Mass Fracti on] in Serum or PlasmaOrdered By: Estela Varma on 06-25-2023 Iron saturation [Mass fraction] 65.7 % 20-50 [facility] Leukocytes [#/volume] correc chris for nucleated erythrocytes in Blood by Automated counOrdered By: Estela Varma on 06-25-2023 WBC corrected for nucl RBC Auto (Bld) [#/Vol] 8.4 10*3/uL 4.1-10.5 [facility] Leukocytes [#/volume] in Blo od by Automated countOrdered By: Estela Varma on 06-25-2023 WBC (Bld) [#/Vol] 8.4 10*3/uL Normal 4.1-10.5 [facility] Comment on above: Performed By: #### F E and TIBC, CEA, T4F, TSH3, YUSUF, [id number], CMP, CBC, MARILU, LIPASE #### [facility] [address] [place] [address] [place] #### METH #### [facility] , Lipase [Enzymatic activity/v olume] in Serum or PlasmaOrdered By: Estela Varma on 06-25-2023 Lipase [Catalytic activity/Vol] 36.0 U/L Normal 11.0-82.0 [facility] Comment on above: Performed By: #### F E and TIBC, CEA, T4F, TSH3, YUSUF, [id number], CMP, CBC, MARILU, LIPASE #### [facility] [address] [place] [address] [place] #### METH #### [facility] , Lymphocytes [#/volume] in Bl ood by Automated countOrdered By: Estela Varma on 06-25-2023 Lymphocytes (Bld) [#/Vol] 0.8 10*3/uL Low 1.00-4.8 [facility] Comment on above: Performed By: #### F E and TIBC, CEA, T4F, TSH3, YUSUF, [id number], CMP, CBC, MARILU, LIPASE #### [place] [address] [place] #### METH #### [facility] , Lymphocytes/100 leukocytes i n Blood by Automated countOrdered By: Estela Varma on 06-25-2023 Lymphocytes/100 WBC (Bld) 9.3 % Normal . [facility] Comment on above: Performed By: #### F E and TIBC, CEA, T4F, TSH3, YUSUF, [id number], CMP, CBC, MARILU, LIPASE #### [place] [address] [place] #### METH #### [facility] , MCH [Entitic mass] by Automa chris countOrdered By: Estela Varma on 06-25-2023 MCH (RBC) [Entitic mass] 32.9 pg Normal 27.5-35.2 [facility] Comment on above: Performed By: #### F E and TIBC, CEA, T4F, TSH3, YUSUF, [id number], CMP, CBC, MARILU, LIPASE #### [place] [address] [place] #### METH #### [facility] , MCHC Auto (RBC) [Mass/Vol]Or dered By: Estela Varma on 06-25-2023 MCHC (RBC) [Mass/Vol] 33.7 g/dL 32.5-35.6 [facility] MCV [Entitic volume] by Auto mated countOrdered By: Estela Varma on 06-25-2023 MCV (RBC) [Entitic vol] 97.6 fL Normal 83.5-101 [facility] Comment on above: Performed By: #### F E and TIBC, CEA, T4F, TSH3, YUSUF, [id number], CMP, CBC, MARILU, LIPASE #### [facility] [address] [place] [address] [place] #### METH #### [facility] , Methylmalonic Acidon 024 Methylmalonic Acid 115 Normal 0-378 [facility] Comment on above: Result Comment: This test was developed and its performance characteristics determined by [facility]. It has not been cleared or approved by the Food and Drug Administration. Performed at: [address] [id number] Pigment Supplier: Loc De Jesus MD, Phone: [phone] PERFORMED BY: [place] [address] PATHOLOGIST BRANCH OFFICE ADMINISTRATOR CATY DELCID M.D. Performed By: #### U RDS #### [address] Neutrophils [#/volume] in Bl ood by Automated countOrdered By: Estela Varma on 06-25-2023 Neutrophils (Bld) [#/Vol] 6.5 10*3/uL Normal 1.8-7.7 [facility] Comment on above: Performed By: #### F E and TIBC, CEA, T4F, TSH3, YUSUF, [id number], CMP, CBC, MARILU, LIPASE #### [facility] [address] [place] [address] #### METH #### [facility] , No Panel InformationOrdered By: Estela Varma on 06-25-2023 Estimated GFR (CKD-EPI) > 60.0 mL/Min [facility] Creatinine Clearance (Chem 108.93 [facility] Nucleated erythrocytes [Pres ence] in Blood by Automated countOrdered By: Estela Varma on 06-25-2023 Nucleated RBC Auto Ql (Bld) 0.2 /100{WBC} 0-0.5 [facility] PET tumor subq tx strat sb-m ton 06-25-2023 PET tumor subq tx strat sb-mt [facility] Main [place] [address] [place] [address] Nuclear Medicine Report Signed Patient: Kirill Echols MR#: [id number] : 1965 Acct:[id number] Age/Sex: 58 / M ADM Date: 06/25/23 Loc: [facility]: [facility] Att[facility]: Estela Varma II DO Copies [...] Ellison Jr., D.O.06/25/2023 10:28 AM Dictation Location: [place] [address] Transcribed By: [facility] 06/25/23 1028 Dictated By: Victorino Ellison Jr, DO 06/25/23 1017 Signed By: 06/25/23 1028 Normal [facility] Platelet mean volume [Entiti c volume] in Blood by Automated countOrdered By: Estela Varma on 06-25-2023 Platelet mean volume (Bld) [Entitic vol] 7.4 fL Normal 6.6-10.1 [facility] Comment on above: Performed By: #### F E and TIBC, CEA, T4F, TSH3, YUSUF, [id number], CMP, CBC, MARILU, LIPASE #### [address] #### METH #### [facility] , Platelets [#/volume] in Bloo d by Automated countOrdered By: Estela Varma on 06-25-2023 Platelets (Bld) [#/Vol] 196 10*3/uL Normal 150-450 [facility] Comment on above: Performed By: #### F E and TIBC, CEA, T4F, TSH3, YUSUF, [id number], CMP, CBC, MARILU, LIPASE #### [address] #### METH #### [facility] , Potassium [Moles/volume] in Serum or PlasmaOrdered By: Estela Varma on 06-25-2023 Potassium [Moles/Vol] 4.2 mmol/L Normal 3.5-5.1 [facility] Comment on above: Performed By: #### F E and TIBC, CEA, T4F, TSH3, YUSUF, [id number], CMP, CBC, MARILU, LIPASE #### [address] #### METH #### [facility] , Protein [Mass/volume] in Ser um or PlasmaOrdered By: Estela Varma on 06-25-2023 Protein [Mass/Vol] 6.9 g/dL Normal 6.4-8.9 [facility] Comment on above: Performed By: #### F E and TIBC, CEA, T4F, TSH3, YUSUF, [id number], CMP, CBC, MARILU, LIPASE #### [place] [address] [place] #### METH #### [facility] , Serum globulin measurement b y calculation (mass/volume)Ordered By: Estela Varma on 06-25-2023 Globulin (S) [Mass/Vol] 3.0 g/dL Normal [facility] Comment on above: Performed By: #### F E and TIBC, CEA, T4F, TSH3, YUSUF, [id number], CMP, CBC, MARILU, LIPASE #### [place] [address] [place] #### METH #### [facility] , Serum or plasma albumin/glob ulin mass ratioOrdered By: Estela Varma on 06-25-2023 Albumin/Globulin [Mass ratio] 1.3 {ratio} [facility] Comment on above: Performed By: #### F E and TIBC, CEA, T4F, TSH3, YUSUF, [id number], CMP, CBC, MARILU, LIPASE #### [place] [address] [place] #### METH #### [facility] , Serum or plasma anion gap de terminationOrdered By: Estela Varma on 06-25-2023 Anion gap [Moles/Vol] 11.0 mmol/L Normal 6.0-15.0 [facility] Comment on above: Performed By: #### F E and TIBC, CEA, T4F, TSH3, YUSUF, [id number], CMP, CBC, MARILU, LIPASE #### [place] [address] [place] #### METH #### [facility] , Serum or plasma carcinoembry onic antigen measurement (mass/volume)Ordered By: Estela Varma on 06-25-2023 Carcinoembryonic Ag [Mass/Vol] 9.4 ng/mL 0.0-3.0 [facility] Comment on above: Serial tumor marker results determined by assays using different manufacturers or methods may not be comparable.[facility] stretcher and drier and method:VALENTINE UNICEL DXI, 2 SITE IMMUNOENZYMATIC SANDWICH ASSAY. Sodium [Moles/volume] in Ser um or PlasmaOrdered By: Estela Varma on 06-25-2023 Sodium [Moles/Vol] 126 mmol/L Low 136-145 [facility] Comment on above: Performed By: #### F E and TIBC, CEA, T4F, TSH3, YUSUF, [id number], CMP, CBC, MARILU, LIPASE #### [address] #### METH #### [facility] , Thyrotropin [Units/volume] i n Serum or PlasmaOrdered By: Estela Varma on 06-25-2023 TSH Qn 9.92 m[IU]/L High 0.45-5.33 [facility] Comment on above: Result Comment: PERF ORMED BY: [place] [address] PATHOLOGIST BRANCH OFFICE ADMINISTRATOR CATY DELCID M.D. Performed By: #### U RDS #### [address] Thyroxine (T4) free [Mass/vo lume] in Serum or PlasmaOrdered By: Estela Varma on 06-25-2023 Free T4 [Mass/Vol] 0.71 ng/dL Normal 0.61-1.12 [facility] Comment on above: Performed By: #### U RDS #### [address] Transferrin [Mass/volume] in Serum or PlasmaOrdered By: Estela Varma on 06-25-2023 Transferrin [Mass/Vol] 173 mg/dL Low 203-362 [facility] Comment on above: Performed By: #### F E and TIBC, CEA, T4F, TSH3, YUSUF, [id number], CMP, CBC, MARILU, LIPASE #### [facility] [address] [place] [address] #### METH #### [facility] , Urea nitrogen [Mass/volume] in Serum or PlasmaOrdered By: Estela Varma on 06-25-2023 Urea nitrogen [Mass/Vol] 5 mg/dL Low 7-25 [facility] Comment on above: Performed By: #### F E and TIBC, CEA, T4F, TSH3, YUSUF, [id number], CMP, CBC, MARILU, LIPASE #### [facility] [address] [place] [address] [place] #### METH #### [facility] , Vit. B12/Folate Profileon Folate 9.6 ng/mL Normal >5.9 [facility] Comment on above: Result Comment: Estrella te reference range: >5.9 ng/ml The WHO technical consultation on folate and vitamin b12 deficiencies has determined that folate concentrations less than 4 ng/ml are considered deficient. Performed By: #### F E and TIBC, CEA, T4F, TSH3, YUSUF, [id number], CMP, CBC, MARILU, LIPASE #### [address] #### METH #### [facility] , Vitamin B12 ser/plasOrdered By: Estela Varma on 06-25-2023 Cobalamin (Vitamin B12) [Mass/Vol] 309 pg/mL Normal 180-914 [facility] Comment on above: Performed By: #### F E and TIBC, CEA, T4F, TSH3, YUSUF, [id number], CMP, CBC, MARILU, LIPASE #### [address] #### METH #### [facility] , Serum or plasma methylmalona te measurement (moles/volume)Ordered By: Estela Varma on 03-30-2023 Methylmalonate [Moles/Vol] 129 nmol/L 0-378 [facility] Comment on above: This test was develo ped and its performance characteristicsdetermined by [employer]. It has not been cleared orapproved by the Food and Drug Administration.Performed at: [address] [id number] Director: Loc De Jesus MD, Phone: [phone] METHYLMALONIC ACID AND HOMOC YSTEINEon 03-29-2023 [facility] Alanine aminotransferase [En zymatic activity/volume] in Serum or PlasmaOrdered By: Estela Varma on 12-22-2022 ALT [Catalytic activity/Vol] 13 U/L 7-52 [facility] Albumin [Mass/volume] in Ser um or Plasma by Bromocresol green (BCG) dye binding methoOrdered By: Estela Varma on 12-22-2022 Albumin BCG dye [Mass/Vol] 3.7 g/dL 3.5-5.7 [facility] Alkaline phosphatase [Enzyma tic activity/volume] in Serum or PlasmaOrdered By: Esteal Varma on 12-22-2022 ALP [Catalytic activity/Vol] 122 U/L 34-104 [facility] Aspartate aminotransferase [ Enzymatic activity/volume] in Serum or PlasmaOrdered By: Estela Varma on 12-22-2022 AST [Catalytic activity/Vol] 17 U/L 13-39 [facility] Basophils Auto (Bld) [#/Vol] Ordered By: Estela Vamra on 12-22-2022 Basophils (Bld) [#/Vol] 0.1 10*3/uL 0.0-0.2 [facility] Basophils/100 WBC Auto (Bld) Ordered By: Estela Varma on 12-22-2022 Basophils/100 WBC (Bld) 1.3 % . [facility] Bilirubin.total [Mass/volume ] in Serum or PlasmaOrdered By: Estela Varma on 12-22-2022 Bilirubin [Mass/Vol] 0.5 mg/dL 0.3-1.0 [facility] Calcium [Mass/volume] in Ser um or PlasmaOrdered By: Estela Varma on 12-22-2022 Calcium [Mass/Vol] 8.0 mg/dL 8.6-10.3 [facility] Carbon dioxide, total [Moles /volume] in Serum or PlasmaOrdered By: Estela Varma on 12-22-2022 CO2 [Moles/Vol] 23.2 mmol/L 21.0-31.0 [facility] Chloride [Moles/volume] in S coral or PlasmaOrdered By: Estela Varma on 12-22-2022 Chloride [Moles/Vol] 100 mmol/L 98-107 [facility] Creatinine [Mass/volume] in Serum or PlasmaOrdered By: Estela Varma on 12-22-2022 Creatinine [Mass/Vol] 0.69 mg/dL 0.70-1.30 [facility] Eosinophils Auto (Bld) [#/Vo l]Ordered By: Estela Varma on 12-22-2022 Eosinophils (Bld) [#/Vol] 0.3 10*3/uL 0.0-0.45 [facility] Eosinophils/100 WBC Auto (Bl d)Ordered By: Estela Varma on 12-22-2022 Eosinophils/100 WBC (Bld) 5.0 % . [facility] Erythrocyte distribution wid th Auto (RBC) [Ratio]Ordered By: Estela Varma on 12-22-2022 Erythrocyte distribution width (RBC) [Ratio] 16.0 % 12.0-14.8 [facility] Globulin Calc (S) [Mass/Vol] Ordered By: Estela Varma on 12-22-2022 Globulin (S) [Mass/Vol] 2.3 g/dL [facility] Glucose Glucometer (BldC) [M ass/Vol]Ordered By: Estela Varma on 12-22-2022 Glucose [Mass/Vol] 71 mg/dL [facility] Comment on above: Random Glucose Refer ence Range is dependent on time and content of last meal. Glucose of more than 200 mg/dL in a nonstressed, ambulatory subject supports the diagnosis of Diabetes Mellitus. Glucose [Mass/volume] in Ser um or PlasmaOrdered By: Estela Varma on 12-22-2022 Glucose [Mass/Vol] 65 mg/dL 70-100 [facility] Comment on above: ADA recommended refe rence rangeRandom Glucose Reference Range is dependent on time and content of last meal. Glucose of more than 200 mg/dL in a nonstressed, ambulatory subject supports the diagnosis of Diabetes Mellitus. Hematocrit Auto (Bld) [Volum e fraction]Ordered By: Estela Varma on 12-22-2022 Hematocrit (Bld) [Volume fraction] 39.6 % 38.8-50.0 [facility] Hemoglobin [Mass/volume] in BloodOrdered By: Estela Varma on 12-22-2022 Hemoglobin (Bld) [Mass/Vol] 13.3 g/dL 13.0-17.0 [facility] Leukocytes [#/volume] correc chris for nucleated erythrocytes in Blood by Automated counOrdered By: Estela Varma on 12-22-2022 WBC corrected for nucl RBC Auto (Bld) [#/Vol] 6.0 10*3/uL 4.1-10.5 [facility] Lymphocytes Auto (Bld) [#/Vo l]Ordered By: Estela Varma on 12-22-2022 Lymphocytes (Bld) [#/Vol] 0.9 10*3/uL 1.00-4.8 [facility] Lymphocytes/100 WBC Auto (Bl d)Ordered By: Estela Varma on 12-22-2022 Lymphocytes/100 WBC (Bld) 15.7 % . [facility] MCH Auto (RBC) [Entitic mass ]Ordered By: Estela Varma on 12-22-2022 MCH (RBC) [Entitic mass] 31.9 pg 27.5-35.2 [facility] MCHC Auto (RBC) [Mass/Vol]Or dered By: Estela Varma on 12-22-2022 MCHC (RBC) [Mass/Vol] 33.5 g/dL 32.5-35.6 [facility] MCV Auto (RBC) [Entitic vol] Ordered By: Estela Varma on 12-22-2022 MCV (RBC) [Entitic vol] 95.0 fL 83.5-101 [facility] Monocytes Auto (Bld) [#/Vol] Ordered By: Estela Varma on 12-22-2022 Monocytes (Bld) [#/Vol] 0.5 10*3/uL 0.0-0.8 [facility] Monocytes/100 WBC Auto (Bld) Ordered By: Estela Varma on 12-22-2022 Monocytes/100 WBC (Bld) 7.8 % . [facility] Neutrophils Auto (Bld) [#/Vo l]Ordered By: Estela Varma on 12-22-2022 Neutrophils (Bld) [#/Vol] 4.2 10*3/uL 1.8-7.7 [facility] Neutrophils/100 WBC Auto (Bl d)Ordered By: Estela Varma on 12-22-2022 Neutrophils/100 WBC (Bld) 70.2 % . [facility] No Panel InformationOrdered By: Estela Varma on 12-22-2022 Estimated GFR (CKD-EPI) > 60.0 mL/Min [facility] Creatinine Clearance (Chem 114.05 [facility] Nucleated erythrocytes [Pres ence] in Blood by Automated countOrdered By: Estela Varma on 12-22-2022 Nucleated RBC Auto Ql (Bld) 0.0 /100{WBC} 0-0.5 [facility] Platelet mean volume Auto (B ld) [Entitic vol]Ordered By: Estela Varma on 12-22-2022 Platelet mean volume (Bld) [Entitic vol] 6.9 fL 6.6-10.1 [facility] Platelets Auto (Bld) [#/Vol] Ordered By: Estela Varma on 12-22-2022 Platelets (Bld) [#/Vol] 177 10*3/uL 150-450 [facility] Potassium [Moles/volume] in Serum or PlasmaOrdered By: Estela Varma on 12-22-2022 Potassium [Moles/Vol] 4.2 mmol/L 3.5-5.1 [facility] Protein [Mass/volume] in Ser um or PlasmaOrdered By: Estela Varma on 12-22-2022 Protein [Mass/Vol] 6.0 g/dL 6.4-8.9 [facility] RBC Auto (Bld) [#/Vol]Ordere d By: Estela Varma on 12-22-2022 RBC (Bld) [#/Vol] 4.17 10*6/uL 3.90-5.60 [facility] Serum or plasma albumin/glob ulin mass ratioOrdered By: Estela Varma on 12-22-2022 Albumin/Globulin [Mass ratio] 1.6 {ratio} [facility] Serum or plasma anion gap de terminationOrdered By: Estela Varma on 12-22-2022 Anion gap [Moles/Vol] 8.0 mmol/L 6.0-15.0 [facility] Sodium [Moles/volume] in Ser um or PlasmaOrdered By: Estela Varma on 12-22-2022 Sodium [Moles/Vol] 127 mmol/L 136-145 [facility] Urea nitrogen [Mass/volume] in Serum or PlasmaOrdered By: Estela Varma on 12-22-2022 Urea nitrogen [Mass/Vol] 6 mg/dL 7-25 [facility] WBC Auto (Bld) [#/Vol]Ordere d By: Estela Varma on 12-22-2022 WBC (Bld) [#/Vol] 6.0 10*3/uL 4.1-10.5 [facility] Alanine aminotransferase [En zymatic activity/volume] in Serum or PlasmaOrdered By: Estela Varma on 10-26-2022 ALT [Catalytic activity/Vol] 12 U/L 7-52 [facility] Albumin [Mass/volume] in Ser um or Plasma by Bromocresol green (BCG) dye binding methoOrdered By: Estela Varma on 10-26-2022 Albumin BCG dye [Mass/Vol] 3.9 g/dL 3.5-5.7 [facility] Alkaline phosphatase [Enzyma tic activity/volume] in Serum or PlasmaOrdered By: Estela Varma on 10-26-2022 ALP [Catalytic activity/Vol] 140 U/L 34-104 [facility] Aspartate aminotransferase [ Enzymatic activity/volume] in Serum or PlasmaOrdered By: Estela Varma on 10-26-2022 AST [Catalytic activity/Vol] 16 U/L 13-39 [facility] Basophils Auto (Bld) [#/Vol] Ordered By: Estela Varma on 10-26-2022 Basophils (Bld) [#/Vol] 0.0 10*3/uL 0.0-0.2 [facility] Basophils/100 WBC Auto (Bld) Ordered By: Estela Varma on 10-26-2022 Basophils/100 WBC (Bld) 0.8 % . [facility] Bilirubin.total [Mass/volume ] in Serum or PlasmaOrdered By: Estela Varma on 10-26-2022 Bilirubin [Mass/Vol] 0.6 mg/dL 0.3-1.0 [facility] Calcium [Mass/volume] in Ser um or PlasmaOrdered By: Estela Varma on 10-26-2022 Calcium [Mass/Vol] 8.3 mg/dL 8.6-10.3 [facility] Carbon dioxide, total [Moles /volume] in Serum or PlasmaOrdered By: Estela Varma on 10-26-2022 CO2 [Moles/Vol] 23.5 mmol/L 21.0-31.0 [facility] Chloride [Moles/volume] in S coral or PlasmaOrdered By: Estela Varma on 10-26-2022 Chloride [Moles/Vol] 98 mmol/L 98-107 [facility] Creatinine [Mass/volume] in Serum or PlasmaOrdered By: Estela Varma on 10-26-2022 Creatinine [Mass/Vol] 0.67 mg/dL 0.70-1.30 [facility] Eosinophils Auto (Bld) [#/Vo l]Ordered By: Estela Varma on 10-26-2022 Eosinophils (Bld) [#/Vol] 0.1 10*3/uL 0.0-0.45 [facility] Eosinophils/100 WBC Auto (Bl d)Ordered By: Estela Varma on 10-26-2022 Eosinophils/100 WBC (Bld) 2.6 % . [facility] Erythrocyte distribution wid th Auto (RBC) [Ratio]Ordered By: Estela Varma on 10-26-2022 Erythrocyte distribution width (RBC) [Ratio] 15.0 % 12.0-14.8 [facility] Erythrocyte sedimentation ra te by Photometric methodOrdered By: Estela Varma on 10-26-2022 ESR Photometric method (Bld) [Velocity] 16 mm/hr 0-19 [facility] Ferritin [Mass/volume] in Se rum or PlasmaOrdered By: Estela Varma on 10-26-2022 Ferritin [Mass/Vol] 225.5 ng/mL 23.9-336.2 [facility] Folate [Mass/volume] in Seru m or PlasmaOrdered By: Estela Varma on 10-26-2022 Folate [Mass/Vol] 4.9 ng/mL >5.9 [facility] Comment on above: Folate reference ran ge: >5.9 ng/mlThe WHO technical consultation on folate and vitamin [id number] has determined that folate concentrations lessthan 4 ng/ml are considered deficient. Globulin Calc (S) [Mass/Vol] Ordered By: Estela Varma on 10-26-2022 Globulin (S) [Mass/Vol] 2.8 g/dL [facility] Glucose [Mass/volume] in Ser um or PlasmaOrdered By: Estela Varma on 10-26-2022 Glucose [Mass/Vol] 66 mg/dL 70-100 [facility] Comment on above: ADA recommended refe rence rangeRandom Glucose Reference Range is dependent on time and content of last meal. Glucose of more than 200 mg/dL in a nonstressed, ambulatory subject supports the diagnosis of Diabetes Mellitus. Hematocrit Auto (Bld) [Volum e fraction]Ordered By: Estela Varma on 10-26-2022 Hematocrit (Bld) [Volume fraction] 39.7 % 38.8-50.0 [facility] Hemoglobin [Mass/volume] in BloodOrdered By: Estela Varma on 10-26-2022 Hemoglobin (Bld) [Mass/Vol] 13.6 g/dL 13.0-17.0 [facility] Iron [Mass/volume] in Serum or PlasmaOrdered By: Estela Varma on 10-26-2022 Iron [Mass/Vol] 103 ug/dL 50-212 [facility] Iron binding capacity [Mass/ volume] in Serum or PlasmaOrdered By: Estela Varma on 10-26-2022 Iron binding capacity [Mass/Vol] 269 ug/dL 255-450 [facility] Iron saturation [Mass Fracti on] in Serum or PlasmaOrdered By: Estela Varma on 10-26-2022 Iron saturation [Mass fraction] 38.3 % 20-50 [facility] Leukocytes [#/volume] correc chris for nucleated erythrocytes in Blood by Automated counOrdered By: Estela Varma on 10-26-2022 WBC corrected for nucl RBC Auto (Bld) [#/Vol] 5.8 10*3/uL 4.1-10.5 [facility] Lymphocytes Auto (Bld) [#/Vo l]Ordered By: Estela Varma on 10-26-2022 Lymphocytes (Bld) [#/Vol] 0.9 10*3/uL 1.00-4.8 [facility] Lymphocytes/100 WBC Auto (Bl d)Ordered By: Estela Varma on 10-26-2022 Lymphocytes/100 WBC (Bld) 15.0 % . [facility] MCH Auto (RBC) [Entitic mass ]Ordered By: Estela Varma on 10-26-2022 MCH (RBC) [Entitic mass] 32.6 pg 27.5-35.2 [facility] MCHC Auto (RBC) [Mass/Vol]Or dered By: Estela Varma on 10-26-2022 MCHC (RBC) [Mass/Vol] 34.2 g/dL 32.5-35.6 [facility] MCV Auto (RBC) [Entitic vol] Ordered By: Estela Varma on 10-26-2022 MCV (RBC) [Entitic vol] 95.2 fL 83.5-101 [facility] Monocytes Auto (Bld) [#/Vol] Ordered By: Estela Varma on 10-26-2022 Monocytes (Bld) [#/Vol] 0.7 10*3/uL 0.0-0.8 [facility] Monocytes/100 WBC Auto (Bld) Ordered By: Estela Vamra on 10-26-2022 Monocytes/100 WBC (Bld) 12.1 % . [facility] Neutrophils Auto (Bld) [#/Vo l]Ordered By: Estela Varma on 10-26-2022 Neutrophils (Bld) [#/Vol] 4.1 10*3/uL 1.8-7.7 [facility] Neutrophils/100 WBC Auto (Bl d)Ordered By: Estela Varma on 10-26-2022 Neutrophils/100 WBC (Bld) 69.5 % . [facility] No Panel InformationOrdered By: Estela Varma on 10-26-2022 Estimated GFR (CKD-EPI) > 60.0 mL/Min [facility] Creatinine Clearance (Chem 121.12 [facility] Nucleated erythrocytes [Pres ence] in Blood by Automated countOrdered By: Estela Varma on 10-26-2022 Nucleated RBC Auto Ql (Bld) 0.2 /100{WBC} 0-0.5 [facility] Platelet mean volume Auto (B ld) [Entitic vol]Ordered By: Estela Varma on 10-26-2022 Platelet mean volume (Bld) [Entitic vol] 6.7 fL 6.6-10.1 [facility] Platelets Auto (Bld) [#/Vol] Ordered By: Estela Varma on 10-26-2022 Platelets (Bld) [#/Vol] 227 10*3/uL 150-450 [facility] Potassium [Moles/volume] in Serum or PlasmaOrdered By: Estela Varma on 10-26-2022 Potassium [Moles/Vol] 4.1 mmol/L 3.5-5.1 [facility] Protein [Mass/volume] in Ser um or PlasmaOrdered By: Estela Varma on 10-26-2022 Protein [Mass/Vol] 6.7 g/dL 6.4-8.9 [facility] RBC Auto (Bld) [#/Vol]Ordere d By: Estela Varma on 10-26-2022 RBC (Bld) [#/Vol] 4.17 10*6/uL 3.90-5.60 [facility] Serum or plasma albumin/glob ulin mass ratioOrdered By: Estela Varma on 10-26-2022 Albumin/Globulin [Mass ratio] 1.4 {ratio} [facility] Serum or plasma anion gap de terminationOrdered By: Estela Varma on 10-26-2022 Anion gap [Moles/Vol] 11.6 mmol/L 6.0-15.0 [facility] Serum or plasma carcinoembry onic antigen measurement (mass/volume)Ordered By: Estela Varma on 10-26-2022 Carcinoembryonic Ag [Mass/Vol] 8.0 ng/mL 0.0-3.0 [facility] Serum or plasma erythropoiet in (EPO) measurement (units/volume)Ordered By: Estela Varma on 10-26-2022 Erythropoietin (EPO) Qn 15.7 mIU/mL 2.6-18.5 [facility] Comment on above: Meez el DxI 800 Immunoassay SystemValues obtained with different assay methods or kits cannotbe used interchangeably. Results cannot be interpreted asabsolute evidence of the presence or absence of malignantdisease.Performed at: [facility] [id number] Director: Fernando Brand PhD, Phone: [phone] Sodium [Moles/volume] in Ser um or PlasmaOrdered By: Estela Varma on 10-26-2022 Sodium [Moles/Vol] 129 mmol/L 136-145 [facility] Transferrin [Mass/volume] in Serum or PlasmaOrdered By: Estela Varma on 10-26-2022 Transferrin [Mass/Vol] 192 mg/dL 203-362 [facility] Urea nitrogen [Mass/volume] in Serum or PlasmaOrdered By: Estela Varma on 10-26-2022 Urea nitrogen [Mass/Vol] 8 mg/dL 7-25 [facility] Vitamin B12 ser/plasOrdered By: Estela Varma on 10-26-2022 Cobalamin (Vitamin B12) [Mass/Vol] 252 pg/mL 180-914 [facility] WBC Auto (Bld) [#/Vol]Ordere d By: Estela Varma on 10-26-2022 WBC (Bld) [#/Vol] 5.8 10*3/uL 4.1-10.5 [facility] CYTOLOGYon 10-03-2022 SENT TO REF LAB 10/04/2022 Normal [facility] Comment on above: Performed By: #### C YTO #### [facility] [address] [place] [address] Dr. Sushant Pradhan CULTURE STERILE BODY FLUIDon 09-11-2022 CULTURE STERILE BODY FLUID Culture Observations: NO GROWTH AT 72 HRS Normal [facility] Comment on above: Performed By: #### C MREP #### [facility] [address] [place] [address] Dr. Sushant Pradhna CULTURE STERILE BODY FLUIDon 09-08-2022 CULTURE STERILE BODY FLUID Culture Observations: NO GROWTH AT 72 HOURS. Normal [facility] Comment on above: Performed By: #### C MREP #### [facility] [address] [place] [address] Dr. Sushant Pradhan CULTURE STERILE BODY FLUIDon 09-04-2022 CULTURE STERILE BODY FLUID Culture Observations: NO GROWTH AT 72 HOURS. Normal [facility] Comment on above: Performed By: #### C MREP #### [facility] [address] [place] [address] Dr. Sushant Pradhan XR RIBS LT PA Romina XR RIBS LT PA CH EXAMINATION: XR [...] JESSE RAMOS Date: 2022-09-01 11:46 Normal [facility] CBC AUTO DIFFon 08-27-2022 BASO # 0.0 103/ul Normal 0.0-0.1 [facility] Comment on above: Performed By: #### C BC #### [facility] [address] [address] [address] Sushant Pradhan Basophils/100 WBC (Bld) 0.3 % Normal 0.2-2.0 [facility] Comment on above: Performed By: #### C BC #### [facility] [address] [address] [address] Sushant Pradhan EO # 0.2 103/ul Normal 0.0-0.7 [facility] Comment on above: Performed By: #### C BC #### [facility] [address] [place] [address] Dr. Sushant Pradhan Eosinophils/100 WBC (Bld) 3.0 % Normal 0.9-7.0 [facility] Comment on above: Performed By: #### C BC #### [facility] [address] [place] [address] Dr. Sushant Pradhan Erythrocyte distribution width (RBC) [Ratio] 16.5 % Critically high 11.0-15.0 [facility] Comment on above: Performed By: #### C BC #### [facility] [address] [place] [address] Dr. Sushant Pradhan Hematocrit (Bld) [Volume fraction] 38.4 % Critically low 42.0-54.0 [facility] Comment on above: Performed By: #### C BC #### [facility] [address] [place] [address] Dr. Sushant Pradhan Hemoglobin (Bld) [Mass/Vol] 13.9 g/dL Critically low 14.0-18.0 [facility] Comment on above: Performed By: #### C BC #### [facility] [address] [place] [address] Dr. Sushant Pradhan IG # 0.01 10e3/ul Normal 0.00-0.03 [facility] Comment on above: Performed By: #### C BC #### [facility] [address] [place] [address] Dr. Sushant Pradhan IG % 0.2 % Normal 0.0-0.5 [facility] Comment on above: Performed By: #### C BC #### [facility] [address] [address] [address] Sushant Pradhan LYMPH # 1.0 103/ul Critically low 1.2-3.8 [facility] Comment on above: Performed By: #### C BC #### [facility] [facility] [address] [place] [address] Dr. Sushant Pradhan Lymphocytes/100 WBC (Bld) 15.8 % Critically low 20.5-60.0 [facility] Comment on above: Performed By: #### C BC #### [facility] [address] [place] [address] Dr. Sushant Pradhan MANUAL DIFF REQ NO Normal [facility] Comment on above: Performed By: #### C BC #### [facility] [address] [place] [address] Dr. Sushant Pradhan MCH (RBC) [Entitic mass] 32.8 pg Normal 25.9-34.0 [facility] Comment on above: Performed By: #### C BC #### [facility] [address] [place] [address] Dr. Sushant Pradhan MCHC (RBC) [Mass/Vol] 36.2 g/dL Critically high 29.9-35.2 [facility] Comment on above: Performed By: #### C BC #### [facility] [address] [place] [address] Dr. Sushant Pradhan MCV (RBC) [Entitic vol] 90.6 fL Normal 80.0-94.0 [facility] Comment on above: Performed By: #### C BC #### [facility] [address] [place] [address] Dr. Sushant Pradhan MONO # 0.8 103/ul Normal 0.3-0.8 [facility] Comment on above: Performed By: #### C BC #### [facility] [address] [place] [address] Dr. Sushant Pradhan Monocytes/100 WBC (Bld) 12.6 % Critically high 1.7-12.0 [facility] Comment on above: Performed By: #### C BC #### [facility] [address] [place] [address] Dr. Sushant Pradhan NEUT # 4.3 103/ul Normal 1.4-6.5 [facility] Comment on above: Performed By: #### C BC #### [facility] [address] [address] [address] Sushant Pradhan Neutrophils/100 WBC (Bld) 68.1 % Normal 43.0-75.0 [facility] Comment on above: Performed By: #### C BC #### [facility] [address] [place] [address] Dr. Sushant Pradhan Platelet mean volume (Bld) [Entitic vol] 9.0 fL Critically low 9.5-13.5 [facility] Comment on above: Performed By: #### C BC #### [facility] [address] [place] [address] Dr. Sushant Pradhan PLT 192 103/ul Normal 150-450 [facility] Comment on above: Performed By: #### C BC #### [facility] [address] [place] [address] Dr. Sushant Pradhan RBC 4.24 106/ul Critically low 4.70-6.10 [facility] Comment on above: Performed By: #### C BC #### [facility] [address] [place] [address] Dr. Sushant Pradhan WBC 6.3 103/ul Normal 4.0-11.0 [facility] Comment on above: Performed By: #### C BC #### [facility] [address] [place] [address] CHEST W CONon [...] by: MARCE SHAY Date: 2022-08-27 12:02 Normal [facility] LACTATE/LACTIC ACIDon 2022 Lactate [Moles/Vol] 1.8 mmol/L Normal 0.4-2.0 [facility] Comment on above: Performed By: #### [facility] #### [facility] [address] [address] [address] Sushant Pradhan PROF 14(COMP METB)on 023 Albumin [Mass/Vol] 3.2 g/dL Critically low 3.4-5.[address] [facility] Comment on above: Performed By: #### C BC #### [facility] [address] [place] [address] Dr. Sushant Pradhan Albumin/Globulin [Mass ratio] 0.7 {ratio} Normal [facility] Comment on above: Performed By: #### C BC #### [facility] [address] [place] [address] Dr. Sushant Pradhan ALP [Catalytic activity/Vol] 207 U/L Critically high 46-116 [facility] Comment on above: Performed By: #### C BC #### [facility] [address] [place] [address] Dr. Sushant Pradhan ALT [Catalytic activity/Vol] 22 U/L Normal 16-63 [facility] Comment on above: Performed By: #### C BC #### [facility] [address] [place] [address] Dr. Sushant Pradhan Anion gap [Moles/Vol] 11.9 mmol/L Normal [facility] Comment on above: Performed By: #### C BC #### [facility] [address] [place] [address] Dr. Sushant Pradhan AST [Catalytic activity/Vol] 23 U/L Normal 15-37 [facility] Comment on above: Performed By: #### C BC #### [facility] [address] [place] [address] Dr. Sushant Pradhan Bilirubin [Mass/Vol] 0.4 mg/dL Normal 0.2-1.0 [facility] Comment on above: Performed By: #### C BC #### [facility] [address] [place] [address] Dr. Sushant Pradhan Calcium [Mass/Vol] 9.2 mg/dL Normal 8.5-10.1 [facility] Comment on above: Performed By: #### C BC #### [facility] [address] [address] [address] Sushant Pradhan Chloride [Moles/Vol] 97 mmol/L Critically low 98-107 [facility] Comment on above: Performed By: #### C BC #### [facility] [address] [address] [address] Sushant Pradhan CO2 [Moles/Vol] 28.1 mmol/L Normal 21.0-32.0 [facility] Comment on above: Performed By: #### C BC #### [facility] [address] [place] [address] Dr. Sushant Pradhan Creatinine [Mass/Vol] 0.86 mg/dL Normal 0.70-1.30 [facility] Comment on above: Performed By: #### C BC #### [facility] [address] [place] [address] Dr. Sushant Pradhan EGFR-AF AZERBAIJANI >60 Normal >=60 [facility] Comment on above: Performed By: #### C BC #### [facility] [address] [place] [address] Dr. Sushant Pradhan EGFR-NON AF AZERBAIJANI >60 Normal >=60 [facility] Comment on above: Performed By: #### C BC #### [facility] [address] [place] [address] Dr. Sushant Pradhan Globulin (S) [Mass/Vol] 4.8 g/dL Normal [facility] Comment on above: Performed By: #### C BC #### [facility] [address] [place] [address] Dr. Sushant Pradhan Glucose [Mass/Vol] 104 mg/dL Normal 74-106 [facility] Comment on above: Performed By: #### C BC #### [facility] [address] [place] [address] Dr. Sushant Pradhan Potassium [Moles/Vol] 4.0 mmol/L Normal 3.5-5.1 [facility] Comment on above: Performed By: #### C BC #### [facility] [address] [place] [address] Dr. Sushant Pradhan Protein [Mass/Vol] 8.0 g/dL Normal 6.4-8.2 [facility] Comment on above: Performed By: #### C BC #### [facility] [address] [address] [address] Sushant Pradhan Sodium [Moles/Vol] 133 mmol/L Critically low 136-145 [facility] Comment on above: Performed By: #### C BC #### [facility] [address] [address] [address] Sushant Pradhan Urea nitrogen [Mass/Vol] 6.0 mg/dL Critically low 7.0-18.0 [facility] Comment on above: Performed By: #### C BC #### [facility] [address] [place] [address] Dr. Sushant Pradhan Urea nitrogen/Creatinine [Mass ratio] 7.0 mg/mg Normal [facility] Comment on above: Performed By: #### C BC #### [facility] [address] [place] [address] Dr. Sushant Pradhan TROPONIN, HIGH SENSITIVITYon 08-27-2022 HSTROP 5.6 pg/mL Normal 4.0-76.1 [facility] Comment on above: Result Comment: CUT- OFF POINTS HAVE BEEN ESTABLISHED BASED ON THE FOURTH UNIVERSAL DEFINITIONS OF MYOCARDIAL INFARCTION. THE UPPER REFERENCE LIMIT (URL) OF TROPONIN, DEFINED THE 99TH PERCENTILE OF cTnI DISTRIBUTION IN A REFERENCE POPULATION, HAS BEEN CONFIRMED THE DECISION THRESHOLD FOR WI DIAGNOSIS. Performed By: #### C BC #### [facility] [address] [place] [address] Dr. Sushant Pradhan HSTROP 5.8 pg/mL Normal 4.0-76.1 [facility] Comment on above: Result Comment: CUT- OFF POINTS HAVE BEEN ESTABLISHED BASED ON THE FOURTH UNIVERSAL DEFINITIONS OF MYOCARDIAL INFARCTION. THE UPPER REFERENCE LIMIT (URL) OF TROPONIN, DEFINED THE 99TH PERCENTILE OF cTnI DISTRIBUTION IN A REFERENCE POPULATION, HAS BEEN CONFIRMED THE DECISION THRESHOLD FOR WI DIAGNOSIS. Performed By: #### C BC #### [facility] [address] [place] [address] Dr. Sushant Pradhan CARDIAC SONIA ADMITon 023 CK [Catalytic activity/Vol] 68 U/L Normal 39-308 [facility] Comment on above: Performed By: #### C MREP #### [facility] [address] [place] [address] Dr. Sushant Pradhan CK.MB [Mass/Vol] 1.23 ng/mL Normal <=3.60 [facility] Comment on above: Performed By: #### C MREP #### [facility] [address] [place] [address] Dr. Sushant Pradhan HSTROP 7.1 pg/mL Normal 4.0-76.1 [facility] Comment on above: Result Comment: CUT- OFF POINTS HAVE BEEN ESTABLISHED BASED ON THE FOURTH UNIVERSAL DEFINITIONS OF MYOCARDIAL INFARCTION. THE UPPER REFERENCE LIMIT (URL) OF TROPONIN, DEFINED THE 99TH PERCENTILE OF cTnI DISTRIBUTION IN A REFERENCE POPULATION, HAS BEEN CONFIRMED THE DECISION THRESHOLD FOR WI DIAGNOSIS. Performed By: #### C MREP #### [facility] [address] [place] [address] Dr. Sushant Pradhan DILAN 32 ng/mL Normal 16-96 [facility] Comment on above: Performed By: #### C MREP #### [facility] [address] [place] [address] Dr. Sushant Pradhan CBC AUTO DIFFon 06-18-2022 BASO # 0.0 103/ul Normal 0.0-0.1 [facility] Comment on above: Performed By: #### C BC #### [facility] [address] [place] [address] Dr. Sushant Pradhan Basophils/100 WBC (Bld) 0.5 % Normal 0.2-2.0 [facility] Comment on above: Performed By: #### C BC #### [facility] [address] [place] [address] Dr. Sushant Pradhan EO # 0.3 103/ul Normal 0.0-0.7 [facility] Comment on above: Performed By: #### C BC #### [facility] [address] [place] [address] Dr. Sushant Pradhan Eosinophils/100 WBC (Bld) 4.5 % Normal 0.9-7.0 [facility] Comment on above: Performed By: #### C BC #### [facility] [address] [place] [address] Dr. Sushant Pradhan Erythrocyte distribution width (RBC) [Ratio] 15.8 % Critically high 11.0-15.0 [facility] Comment on above: Performed By: #### C BC #### [facility] [address] [place] [address] Dr. Sushant Pradhan Hematocrit (Bld) [Volume fraction] 37.3 % Critically low 42.0-54.0 [facility] Comment on above: Performed By: #### C BC #### [facility] [address] [place] [address] Dr. Sushant Pradhan Hemoglobin (Bld) [Mass/Vol] 13.0 g/dL Critically low 14.0-18.0 [facility] Comment on above: Performed By: #### C BC #### [facility] [address] [place] [address] Dr. Sushant Pradhan IG # 0.02 10e3/ul Normal 0.00-0.03 [facility] Comment on above: Performed By: #### C BC #### [facility] [address] [place] [address] Dr. Sushant Pradhan IG % 0.3 % Normal 0.0-0.5 [facility] Comment on above: Performed By: #### C BC #### [facility] [address] [place] [address] Dr. Sushant Pradhan LYMPH # 0.8 103/ul Critically low 1.2-3.8 [facility] Comment on above: Performed By: #### C BC #### [facility] [address] [place] [address] Dr. Sushant Pradhan Lymphocytes/100 WBC (Bld) 13.9 % Critically low 20.5-60.0 [facility] Comment on above: Performed By: #### C BC #### [facility] [address] [place] [address] Dr. Sushant Pradhan MANUAL DIFF REQ NO Normal [facility] Comment on above: Performed By: #### C BC #### [facility] [address] [address] [address] Sushant Pradhan MCH (RBC) [Entitic mass] 33.0 pg Normal 25.9-34.0 [facility] Comment on above: Performed By: #### C BC #### [facility] [address] [address] [address] Sushant Pradhan MCHC (RBC) [Mass/Vol] 34.9 g/dL Normal 29.9-35.2 [facility] Comment on above: Performed By: #### C BC #### [facility] [address] [place] [address] Dr. Sushant Pradhan MCV (RBC) [Entitic vol] 94.7 fL Critically high 80.0-94.0 [facility] Comment on above: Performed By: #### C BC #### [facility] [address] [place] [address] Dr. Sushant Pradhan MONO # 0.7 103/ul Normal 0.3-0.8 [facility] Comment on above: Performed By: #### C BC #### [facility] [address] [place] [address] Dr. Sushant Pradhan Monocytes/100 WBC (Bld) 12.5 % Critically high 1.7-12.0 [facility] Comment on above: Performed By: #### C BC #### [facility] [address] [place] [address] Dr. Sushant Pradhan NEUT # 4.0 103/ul Normal 1.4-6.5 [facility] Comment on above: Performed By: #### C BC #### [facility] [address] [place] [address] Dr. Sushant Pradhan Neutrophils/100 WBC (Bld) 68.3 % Normal 43.0-75.0 [facility] Comment on above: Performed By: #### C BC #### [facility] [address] [place] [address] Dr. Sushant Pradhan Platelet mean volume (Bld) [Entitic vol] 9.1 fL Critically low 9.5-13.5 [facility] Comment on above: Performed By: #### C BC #### [facility] [address] [address] [address] Sushant Pradhan PLT 175 103/ul Normal 150-450 [facility] Comment on above: Performed By: #### C BC #### [facility] [address] [address] [address] Sushant Pradhan RBC 3.94 106/ul Critically low 4.70-6.10 [facility] Comment on above: Performed By: #### C BC #### [facility] [address] [address] [address] Sushant Pradhan WBC 5.8 103/ul Normal 4.0-11.0 [facility] Comment on above: Performed By: #### C BC #### [facility] [address] [place] [address] Dr. Sushant Pradhan PROF 14(COMP METB)on 023 Albumin [Mass/Vol] 2.9 g/dL Critically low 3.4-5.[address] [facility] Comment on above: Performed By: #### C MREP #### [facility] [address] [place] [address] Dr. Sushant Pradhan Albumin/Globulin [Mass ratio] 0.8 {ratio} Normal [facility] Comment on above: Performed By: #### C MREP #### [facility] [address] [place] [address] Dr. Sushant Pradhan ALP [Catalytic activity/Vol] 133 U/L Critically high 46-116 [facility] Comment on above: Performed By: #### C MREP #### [facility] [address] [address] [address] Sushant Pradhan ALT [Catalytic activity/Vol] 15 U/L Critically low 16-63 [facility] Comment on above: Performed By: #### C MREP #### [facility] [address] [place] [address] Dr. Sushant Pradhan Anion gap [Moles/Vol] 16.5 mmol/L Normal [facility] Comment on above: Performed By: #### C MREP #### [facility] [address] [address] [address] Sushant Pradhan AST [Catalytic activity/Vol] 15 U/L Normal 15-37 [facility] Comment on above: Performed By: #### C MREP #### [facility] [address] [address] [address] Sushant Pradhan Bilirubin [Mass/Vol] 0.4 mg/dL Normal 0.2-1.0 [facility] Comment on above: Performed By: #### C MREP #### [facility] [address] [address] [address] Sushant Pradhan Calcium [Mass/Vol] 8.6 mg/dL Normal 8.5-10.1 [facility] Comment on above: Performed By: #### C MREP #### [facility] [address] [address] [address] Sushant Pradhan Chloride [Moles/Vol] 97 mmol/L Critically low 98-107 [facility] Comment on above: Performed By: #### C MREP #### [facility] [address] [address] [address] Sushant Pradhan CO2 [Moles/Vol] 22.3 mmol/L Normal 21.0-32.0 [facility] Comment on above: Performed By: #### C MREP #### [facility] [address] [address] [address] Sushant Pradhan Creatinine [Mass/Vol] 0.61 mg/dL Critically low 0.70-1.30 [facility] Comment on above: Performed By: #### C MREP #### [facility] [address] [address] [address] Sushant Pradhan EGFR-AF AZERBAIJANI >60 Normal >=60 [facility] Comment on above: Performed By: #### C MREP #### [facility] [address] [address] [address] Sushant Pradhan EGFR-NON AF AZERBAIJANI >60 Normal >=60 [facility] Comment on above: Performed By: #### C MREP #### [facility] [address] [address] [address] Sushant Pradhan Globulin (S) [Mass/Vol] 3.8 g/dL Normal [facility] Comment on above: Performed By: #### C MREP #### [facility] [address] [address] [address] Sushnat Pradhan Glucose [Mass/Vol] 79 mg/dL Normal 74-106 [facility] Comment on above: Performed By: #### C MREP #### [facility] [address] [address] [address] Sushant Pradhan Potassium [Moles/Vol] 3.8 mmol/L Normal 3.5-5.1 [facility] Comment on above: Performed By: #### C MREP #### [facility] [address] [address] [address] Sushant Pradhan Protein [Mass/Vol] 6.7 g/dL Normal 6.4-8.2 [facility] Comment on above: Performed By: #### C MREP #### [facility] [address] [address] [address] Sushant Pradhan Sodium [Moles/Vol] 132 mmol/L Critically low 136-[address] [facility] Comment on above: Performed By: #### C MREP #### [facility] [address] [address] [address] Sushant Pradhan Urea nitrogen [Mass/Vol] 5.0 mg/dL Critically low 7.0-18.0 [facility] Comment on above: Performed By: #### C MREP #### [facility] [address] [address] [address] Sushant Pradhan Urea nitrogen/Creatinine [Mass ratio] 8.2 mg/mg Normal [facility] Comment on above: Performed By: #### C MREP #### [facility] [address] [address] [address] Sushant Pradhan XR CHEST 1 Von [...] JESSE RAMOS Date: 2022-06-18 10:42 Normal [facility] Basophils Auto (Bld) [#/Vol] Ordered By: Jackie Fraga on 06-17-2022 Basophils (Bld) [#/Vol] 0.0 10*3/uL 0.0-0.2 [facility] Basophils/100 WBC Auto (Bld) Ordered By: Jackie Fraga on 06-17-2022 Basophils/100 WBC (Bld) 0.7 % . [facility] Creatinine and Glomerular fi ltration rate.predicted panel (S/P/Bld)Ordered By: Jackie Fraga on 06-17-2022 Creatinine [Mass/Vol] 0.91 mg/dL 0.64-1.27 [facility] Eosinophils Auto (Bld) [#/Vo l]Ordered By: Jackie Fraga on 06-17-2022 Eosinophils (Bld) [#/Vol] 0.2 10*3/uL 0.0-0.45 [facility] Eosinophils/100 WBC Auto (Bl d)Ordered By: Jackie Fraga on 06-17-2022 Eosinophils/100 WBC (Bld) 3.5 % . [facility] Erythrocyte distribution wid th Auto (RBC) [Ratio]Ordered By: Jackie Fraga on 06-17-2022 Erythrocyte distribution width (RBC) [Ratio] 15.8 % 12.0-14.8 [facility] Estimated glomerular filtrat ion rate (GFR) non- AmericanOrdered By: Jackie Fraga on 06-17-2022 GFR/1.73 sq M.predicted among non-blacks MDRD (S/P/Bld) [Vol rate/Area] > 60 mL/Min [facility] Hematocrit Auto (Bld) [Volum e fraction]Ordered By: Jackie Fraga on 06-17-2022 Hematocrit (Bld) [Volume fraction] 41.9 % 38.8-50.0 [facility] Hemoglobin [Mass/volume] in BloodOrdered By: Jackie Fraga on 06-17-2022 Hemoglobin (Bld) [Mass/Vol] 13.8 g/dL 13.0-17.0 [facility] Leukocytes [#/volume] correc chris for nucleated erythrocytes in Blood by Automated counOrdered By: Jackie Fraga on 06-17-2022 WBC corrected for nucl RBC Auto (Bld) [#/Vol] 6.1 10*3/uL 4.1-10.5 [facility] Lymphocytes Auto (Bld) [#/Vo l]Ordered By: Jackie Fraga on 06-17-2022 Lymphocytes (Bld) [#/Vol] 1.0 10*3/uL 1.00-4.8 [facility] Lymphocytes/100 WBC Auto (Bl d)Ordered By: Jackie Fraga on 06-17-2022 Lymphocytes/100 WBC (Bld) 16.6 % . [facility] MCH Auto (RBC) [Entitic mass ]Ordered By: Jackie Fraga on 06-17-2022 MCH (RBC) [Entitic mass] 32.9 pg 27.5-35.2 [facility] MCHC Auto (RBC) [Mass/Vol]Or dered By: Jackie Fraga on 06-17-2022 MCHC (RBC) [Mass/Vol] 33.1 g/dL 32.5-35.6 [facility] MCV Auto (RBC) [Entitic vol] Ordered By: Jackie Fraga on 06-17-2022 MCV (RBC) [Entitic vol] 99.4 fL 83.5-101 [facility] Monocytes Auto (Bld) [#/Vol] Ordered By: Jackie Fraga on 06-17-2022 Monocytes (Bld) [#/Vol] 0.8 10*3/uL 0.0-0.8 [facility] Monocytes/100 WBC Auto (Bld) Ordered By: Jackie Fraga on 06-17-2022 Monocytes/100 WBC (Bld) 13.3 % . [facility] Neutrophils Auto (Bld) [#/Vo l]Ordered By: Jackie Fraga on 06-17-2022 Neutrophils (Bld) [#/Vol] 4.0 10*3/uL 1.8-7.7 [facility] Neutrophils/100 WBC Auto (Bl d)Ordered By: Jackie Fraga on 06-17-2022 Neutrophils/100 WBC (Bld) 65.9 % . [facility] No Panel InformationOrdered By: Jackie Fraga on 06-17-2022 Estimated GFR () > 60 mL/Min [facility] Comment on above: GFR estimated refere nce range: According to KDOQI guidelines, <60 ml/min/1.73m2 is sufficient to diagnose a patient with chronic kidney disease. Pharmacy Creatinine Clearance (Chem 86.01 [facility] Nucleated erythrocytes [Pres ence] in Blood by Automated countOrdered By: Jackie Fraga on 06-17-2022 Nucleated RBC Auto Ql (Bld) 0.2 /100{WBC} 0-0.5 [facility] Platelet mean volume Auto (B ld) [Entitic vol]Ordered By: Jackie Fraga on 06-17-2022 Platelet mean volume (Bld) [Entitic vol] 7.7 fL 6.6-10.1 [facility] Platelets Auto (Bld) [#/Vol] Ordered By: Jackie Fraga on 06-17-2022 Platelets (Bld) [#/Vol] 185 10*3/uL 150-450 [facility] RBC Auto (Bld) [#/Vol]Ordere d By: Jackie Fraga on 06-17-2022 RBC (Bld) [#/Vol] 4.21 10*6/uL 3.90-5.60 [facility] Serum or plasma anion gap de terminationOrdered By: Jackie Fraga on 06-17-2022 Anion gap [Moles/Vol] 10.6 mmol/L 6.0-15.0 [facility] Serum or plasma calcium ledy urement (mass/volume)Ordered By: Jackie Fraga on 06-17-2022 Calcium [Mass/Vol] 8.6 mg/dL 8.2-10.2 [facility] Serum or plasma chloride carlyn surement (moles/volume)Ordered By: Jackie Fraga on 06-17-2022 Chloride [Moles/Vol] 99 mmol/L 95-114 [facility] Serum or plasma glucose ledy urement (mass/volume)Ordered By: Jackie Fraga on 06-17-2022 Glucose [Mass/Vol] 94 mg/dL 70-100 [facility] Comment on above: ADA recommended refe rence rangeRandom Glucose Reference Range is dependent on time and content of last meal. Glucose of more than 200 mg/dL in a nonstressed, ambulatory subject supports the diagnosis of Diabetes Mellitus. Serum or plasma potassium me asurement (moles/volume)Ordered By: Jackie Fraga on 06-17-2022 Potassium [Moles/Vol] 4.1 mmol/L 3.5-5.1 [facility] Serum or plasma sodium measu rement (moles/volume)Ordered By: Jackie Fraga on 06-17-2022 Sodium [Moles/Vol] 127 mmol/L 136-146 [facility] [facility] Serum or plasma total carbon dioxide measurement (moles/volume)Ordered By: Jackie Fraga on 06-17-2022 CO2 [Moles/Vol] 21.5 mmol/L 22.0-30.0 [facility] Serum or plasma urea nitroge n measurement (mass/volume)Ordered By: Jackie Fraga on 06-17-2022 Urea nitrogen [Mass/Vol] 10 mg/dL 9-23 [facility] TSH DL <= 0.005 mIU/L QnOrde red By: Jackie Fraga on 06-17-2022 TSH Qn 4.63 m[IU]/L 0.45-5.33 [facility] WBC Auto (Bld) [#/Vol]Ordere d By: Jackie Fraga on 06-17-2022 WBC (Bld) [#/Vol] 6.1 10*3/uL 4.1-10.5 [facility] Amphetamine Screen Ql (U)Ord ered By: Edward Hinds on 06-16-2022 Amphetamines Ql (U) Negative Negative [facility] Barbiturates [Presence] in U rineOrdered By: Edward Hinds on 06-16-2022 Barbiturates Ql (U) Negative Negative [facility] Benzodiazepines [Presence] i n UrineOrdered By: Edward Hinds on 06-16-2022 Benzodiazepines Ql (U) Negative Negative [facility] Cannabinoids [Presence] in U rine by Screen methodOrdered By: Edward Hinds on 06-16-2022 Cannabinoids Screen Ql (U) Positive Negative [facility] Comment on above: These are unconfirme d results and should not be used for legal purposes. Drug Cut-Off Concentration: AMPH 1000 ng/mL ZUNILDA 200 ng/mL SHIVANI 200 ng/mL COCM 300 ng/mL OP 300 ng/mL PCP 25 ng/mL THC 20 ng/mL Laboratory - Drug toxicology Ordered By: Edward Hinds on 06-16-2022 Opiates Ql (U) Negative Negative [facility] Phencyclidine Screen Ql (U)O rdered By: Edward Hinds on 06-16-2022 Phencyclidine Ql (U) Negative Negative [facility] Urine cocaine detectionOrder ed By: Edward Hinds on 06-16-2022 Cocaine Ql (U) Negative Negative [facility] Activated partial thrombopla stin time (aPTT) in platelet poor plasma by coagulation aOrdered By: Varghese Duval on 06-15-2022 aPTT Coag (PPP) [Time] 35.2 s 25.1-36.5 [facility] Basophils Auto (Bld) [#/Vol] Ordered By: Varghese Duval on 06-15-2022 Basophils (Bld) [#/Vol] 0.1 10*3/uL 0.0-0.2 [facility] Basophils/100 WBC Auto (Bld) Ordered By: Varghese Duval on 06-15-2022 Basophils/100 WBC (Bld) 1.0 % . [facility] Bilirubin Test strip Ql (U)O rdered By: Varghese Duval on 06-15-2022 Bilirubin Ql (U) Negative Negative [facility] Color Auto (U)Ordered By: Tanya Duval on 06-15-2022 Color (U) Yellow Yellow [facility] Creatinine and Glomerular fi ltration rate.predicted panel (S/P/Bld)Ordered By: Varghese Duval on 06-15-2022 Creatinine [Mass/Vol] 0.76 mg/dL 0.64-1.27 [facility] Eosinophils Auto (Bld) [#/Vo l]Ordered By: Varghese Duval on 06-15-2022 Eosinophils (Bld) [#/Vol] 0.3 10*3/uL 0.0-0.45 [facility] Eosinophils/100 WBC Auto (Bl d)Ordered By: Varghese Duval on 06-15-2022 Eosinophils/100 WBC (Bld) 4.9 % . [facility] Erythrocyte distribution wid th Auto (RBC) [Ratio]Ordered By: Varghese Duval on 06-15-2022 Erythrocyte distribution width (RBC) [Ratio] 15.9 % 12.0-14.8 [facility] Estimated glomerular filtrat ion rate (GFR) non- AmericanOrdered By: Varghese Duval on 06-15-2022 GFR/1.73 sq M.predicted among non-blacks MDRD (S/P/Bld) [Vol rate/Area] > 60 mL/Min [facility] Hematocrit Auto (Bld) [Volum e fraction]Ordered By: Varghese Duval on 06-15-2022 Hematocrit (Bld) [Volume fraction] 42.5 % 38.8-50.0 [facility] Hemoglobin [Mass/volume] in BloodOrdered By: Varghese Duval on 06-15-2022 Hemoglobin (Bld) [Mass/Vol] 14.3 g/dL 13.0-17.0 [facility] Ketones Auto test strip (U) [Mass/Vol]Ordered By: Varghese Duval on 06-15-2022 Ketones (U) [Mass/Vol] Negative Negative [facility] Laboratory - CoagulationOrde red By: Varghese Duval on 06-15-2022 PT Coag (PPP) [Time] 10.7 s 9.0-12.9 [facility] Leukocytes [#/volume] correc chris for nucleated erythrocytes in Blood by Automated counOrdered By: Varghese Duval on 06-15-2022 WBC corrected for nucl RBC Auto (Bld) [#/Vol] 5.4 10*3/uL 4.1-10.5 [facility] Lymphocytes Auto (Bld) [#/Vo l]Ordered By: Varghese Duval on 06-15-2022 Lymphocytes (Bld) [#/Vol] 1.0 10*3/uL 1.00-4.8 [facility] Lymphocytes/100 WBC Auto (Bl d)Ordered By: Varghese Duval on 06-15-2022 Lymphocytes/100 WBC (Bld) 19.3 % . [facility] MCH Auto (RBC) [Entitic mass ]Ordered By: Varghese Duval on 06-15-2022 MCH (RBC) [Entitic mass] 33.2 pg 27.5-35.2 [facility] MCHC Auto (RBC) [Mass/Vol]Or dered By: Varghese Duval on 06-15-2022 MCHC (RBC) [Mass/Vol] 33.5 g/dL 32.5-35.6 [facility] MCV Auto (RBC) [Entitic vol] Ordered By: Varghese Duval on 06-15-2022 MCV (RBC) [Entitic vol] 98.9 fL 83.5-101 [facility] Monocytes Auto (Bld) [#/Vol] Ordered By: Varghese Duval on 06-15-2022 Monocytes (Bld) [#/Vol] 0.5 10*3/uL 0.0-0.8 [facility] Monocytes/100 WBC Auto (Bld) Ordered By: Varghese Duval on 06-15-2022 Monocytes/100 WBC (Bld) 8.8 % . [facility] Neutrophils Auto (Bld) [#/Vo l]Ordered By: Varghese Duval on 06-15-2022 Neutrophils (Bld) [#/Vol] 3.6 10*3/uL 1.8-7.7 [facility] Neutrophils/100 WBC Auto (Bl d)Ordered By: Varghese Duval on 06-15-2022 Neutrophils/100 WBC (Bld) 66.0 % . [facility] Nitrite Test strip Ql (U)Ord ered By: Varghese Duval on 06-15-2022 Nitrite Ql (U) Negative Negative [facility] No Panel InformationOrdered By: Varghese Duval on 06-15-2022 Estimated GFR () > 60 mL/Min [facility] Comment on above: GFR estimated refere nce range: According to KDOQI guidelines, <60 ml/min/1.73m2 is sufficient to diagnose a patient with chronic kidney disease. Pharmacy Creatinine Clearance (Chem N/A [facility] Nucleated erythrocytes [Pres ence] in Blood by Automated countOrdered By: Varghese Duval on 06-15-2022 Nucleated RBC Auto Ql (Bld) 0.2 /100{WBC} 0-0.5 [facility] Platelet mean volume Auto (B ld) [Entitic vol]Ordered By: Varghese Duval on 06-15-2022 Platelet mean volume (Bld) [Entitic vol] 7.4 fL 6.6-10.1 [facility] Platelet poor plasma interna tional normalized ratio (INR) by coagulation assay (relatOrdered By: Varghese Duval on 06-15-2022 INR Coag (PPP) [Relative time] 0.9 {INR} [facility] Comment on above: INR Therapeutic Rang e [...] 06-15-2022 Platelets (Bld) [#/Vol] 212 10*3/uL 150-450 [facility] Protein Auto test strip (U) [Mass/Vol]Ordered By: Varghese Duval on 06-15-2022 Protein (U) [Mass/Vol] Negative Negative [facility] RBC Auto (Bld) [#/Vol]Ordere d By: Varghese Duval on 06-15-2022 RBC (Bld) [#/Vol] 4.30 10*6/uL 3.90-5.60 [facility] Serum or plasma anion gap de terminationOrdered By: Varghese Duval on 06-15-2022 Anion gap [Moles/Vol] 14.4 mmol/L 6.0-15.0 [facility] Serum or plasma calcium ledy urement (mass/volume)Ordered By: Varghese Duval on 06-15-2022 Calcium [Mass/Vol] 8.5 mg/dL 8.2-10.2 [facility] Serum or plasma chloride carlyn surement (moles/volume)Ordered By: Varghese Duval on 06-15-2022 Chloride [Moles/Vol] 98 mmol/L 95-114 [facility] Serum or plasma glucose ledy urement (mass/volume)Ordered By: Varghese Duval on 06-15-2022 Glucose [Mass/Vol] 74 mg/dL 70-100 [facility] Comment on above: ADA recommended refe rence rangeRandom Glucose Reference Range is dependent on time and content of last meal. Glucose of more than 200 mg/dL in a nonstressed, ambulatory subject supports the diagnosis of Diabetes Mellitus. Serum or plasma potassium me asurement (moles/volume)Ordered By: Varghese Duval on 06-15-2022 Potassium [Moles/Vol] 4.2 mmol/L 3.5-5.1 [facility] Serum or plasma sodium measu rement (moles/volume)Ordered By: Varghese Duval on 06-15-2022 Sodium [Moles/Vol] 129 mmol/L 136-146 [facility] Serum or plasma total carbon dioxide measurement (moles/volume)Ordered By: Varghese Duval on 06-15-2022 CO2 [Moles/Vol] 20.8 mmol/L 22.0-30.0 [facility] Serum or plasma urea nitroge n measurement (mass/volume)Ordered By: Varghese Duval 06-15-2022 Urea nitrogen [Mass/Vol] 4 mg/dL 9-23 [facility] Specific gravity Auto test s trip (U) [Rel density]Ordered By: Varghese Duval on 06-15-2022 Specific gravity (U) [Rel density] 1.008 1.001-1.030 [facility] Urine clarity by refractomet ry automatedOrdered By: Varghese Duval on 06-15-2022 Clarity Refractometry automated (U) Clear Clear [facility] Urine glucose measurement by automated test strip (mass/volume)Ordered By: Varghese Duval on 06-15-2022 Glucose Auto test strip (U) [Mass/Vol] Normal mg/dL Normal [facility] Urine hemoglobin detection b y automated test stripOrdered By: Varghese Duval on 06-15-2022 Hemoglobin Auto test strip Ql (U) Negative Negative [facility] Urine leukocyte esterase det ection by automated test stripOrdered By: Varghese Duval on 06-15-2022 Leukocyte esterase Auto test strip Ql (U) Negative Negative [facility] Urobilinogen Auto test strip (U) [Mass/Vol]Ordered By: Varghese Duval on 06-15-2022 Urobilinogen (U) [Mass/Vol] Normal mg/dL Normal [facility] WBC Auto (Bld) [#/Vol]Ordere d By: Varghese Duval on 06-15-2022 WBC (Bld) [#/Vol] 5.4 10*3/uL 4.1-10.5 [facility] pH Auto test strip (U)Ordere d By: Varghese Duval on 06-15-2022 pH (U) 5.5 [pH] 5.0-9.0 [facility] CT chest w conon 06-01-2022 CT chest w con [facility] [email or web address] Other CT chest w con [facility] [email or web address] Other CT chest w con [address] [place] [address] [employer] [place] [address] No [facility] [email or web address] Other CT chest w con CT Scan Report [facility] [email or web address] Other CT chest w con Signed [employer] Other CT chest w con Patient: Gustavo Echols MR#: [id number] [employer] Other CT chest w con [address] chest w con : 1965 Acct:[id number] [employer] Other CT chest w con Age/Sex: 57 / M ADM Date: 06/01/[address] [employer] [address] chest w con Loc: CT Room: Type: [facility] [employer] Other CT chest w con Attending Dr: Rachid Chase MD [employer] Other CT chest w con Copies to: Rachid whitlock MD [employer] Other CT chest w con Ordering Provider: Narinder Chase MD [employer] Other CT chest w con Date of Service: 06/01/[address] [employer] [address] chest w con CT/CT chest w con: C34.[address] [employer] [address] chest w con CT chest withcontrast [employer] Other CT chest w con TECHNIQUE: Axial adore ging with 2-D reconstruction. 83 cc of [id number] CT exam was performed [employer] Other CT chest w con using one or more th e following dose reduction techniques: Automated exposure control, adjustment of [employer] Other CT chest w con the MA and/or Kv according to patient size, or use of the iterative reconstruction technique. [employer] Other CT chest w con History: History of lung cancer. Chest tightness. Shortness of breath. [employer] Other CT chest w con COMPARISON: 04/10/[address] [employer] [address] chest w con No thyroid abnormali ty [id number] present on the left. [employer] Other CT chest w con Central airway is patent. [employer] Other CT chest w con No esophageal abnormality identified. [employer] Other CT chest w con Heart is not enlarge d. No pericardial effusion is seen. [employer] Other CT chest w con Nonenlarged mediasti nal lymph nodes identified. No hilar mass or adenopathy is seen. [employer] Other CT chest w con No thoracic aortic aneurysm is seen. [employer] Other CT chest w con No lung nodules identified. [employer] Other CT chest w con No infiltrate or congestion identified. Developing medial right middle lobe atelectasis. Large [employer] Other CT chest w con right pleural effusi on redemonstrated. This is similar to prior examination. No pneumothorax seen. [employer] Other CT chest w con Emphysematous change s redemonstrated. [employer] Other CT chest w con No chest wall abnormality seen. The bony structures are intact. [employer] Other CT chest w con Images of the upper abdomen are noncontributory. [employer] Other CT chest w con C T/CT chest w con [employer] Other CT chest w con IMPRESSION: Developi ng medial right middle lobe atelectasis. Continued large right pleural [employer] Other CT chest w con effusion. Emphysema. [employer] Other CT chest w con Impression dictated by: Franklin Gomes M.D.06/01/2022 3:[address] [employer] Other CT chest w con Dictation Location: [facility] [employer] [address] chest w con Transcribed By: PWS 06/01/[address] [employer] [address] chest w con Dictated By: Franklin Gomes DO 06/01/[address] [employer] [address] chest w con Signed By: [employer] Other CT chest w con 06/01/22 1520 [employer] Other Creatinine (Bld) [Mass/Vol]O rdered By: Rachid Chase on 06-01-2022 Creatinine [Mass/Vol] 0.8 mg/dL 0.6-1.3 [facility] Comment on above: ER/ESD physician is notified/shown all ISTAT results.Critical values may be confirmed by laboratory testing ifdeemed necessary by ER attending doctor. No Panel InformationOrdered By: Rachid hCase on 06-01-2022 POC Estimated GFR > 60 [facility] Comment on above: GFR estimated refere nce range: According to KDOQI guidelines, <60 ml/min/1.73m2 is sufficient to diagnose a patient with chronic kidney disease. POC Estimated GFR Non- Amer > 60 [facility] Activated partial thrombopla stin time (aPTT) in platelet poor plasma by coagulation aOrdered By: Estela Varma on 04-18-2022 aPTT Coag (PPP) [Time] 44.4 s 25.1-36.5 [facility] Laboratory - CoagulationOrde red By: Estela Varma on 04-18-2022 PT Coag (PPP) [Time] 11.2 s 9.0-12.9 [facility] Platelet poor plasma interna tional normalized ratio (INR) by coagulation assay (relatOrdered By: Estela Varma on 04-18-2022 INR Coag (PPP) [Relative time] 1.0 {INR} [facility] Comment on above: INR Therapeutic Rang e [...] 04-18-2022 Platelets (Bld) [#/Vol] 158 10*3/uL 150-450 [facility] Bacterial blood cultureOrder ed By: Tez Irene on 04-15-2022 Bacteria identified Cx Nom (Bld) NO GROWTH 5 DAYS [facility] Bacteria identified Anaer cx Nom (Unsp spec)Ordered By: Tez Irene on 04-14-2022 Anaerobic microbial culture No Anaerobes Isolated 3 Days [facility] ABO and Rh group post transf usion reaction Nom (Bld)Ordered By: Tez Irene on 04-12-2022 Microscopic observation Gram stain Nom (Unsp spec) [facility] Aerobic cultureOrdered By: Krystina Irene on 04-11-2022 Bacteria identified Aer cx Nom (Unsp spec) No Growth 2 Days [facility] Anaerobic cultureOrdered By: Tez Irene on 04-11-2022 Bacteria identified Anaer cx Nom (Unsp spec) No Anaerobes Isolated 3 Days [facility] Body fluid differential cell countOrdered By: Tez Irene on 04-11-2022 Differential panel (Body fld) 4 % [facility] Comment on above: The reference interv al and other method performance specifications have not been established for this body fluid. The test result must be integrated into the clinical context for interpretation. Differential panel (Body fld) 0 % [facility] Comment on above: The reference interv al and other method performance specifications have not been established for this body fluid. The test result must be integrated into the clinical context for interpretation. Body fluid protein measureme nt (mass/volume)Ordered By: Tez Irene on 04-11-2022 Protein (Body fld) [Mass/Vol] 3.8 g/dL [facility] Cells Counted Total [#] in B sarah fluidOrdered By: Tez Irene on 04-11-2022 Cells Counted Total (Body fld) [#] 1147 /uL [facility] Comment on above: The reference interv al and other method performance specifications have not been established for this body fluid. The test result must be integrated into the clinical context for interpretation. Color of Spun Body fluidOrde red By: Tez Irene on 04-11-2022 Color (Spun body fld) [facility] Comment on above: The reference interv al and other method performance specifications have not been established for this body fluid. The test result must be integrated into the clinical context for interpretation. Determination of appearance of body fluidOrdered By: Tez Irene on 04-11-2022 Appearance (Body fld) Hazy [facility] Comment on above: The reference interv al and other method performance specifications have not been established for this body fluid. The test result must be integrated into the clinical context for interpretation. Erythrocytes [#/volume] in B sarah fluid by Automated countOrdered By: Tez Irene on 04-11-2022 RBC Auto (Body fld) [#/Vol] 14487 mm^3 [facility] Comment on above: The reference interv al and other method performance specifications have not been established for this body fluid. The test result must be integrated into the clinical context for interpretation. Evaluation of color of body fluidOrdered By: Tez Irene on 04-11-2022 Color (Body fld) [facility] Comment on above: The reference interv al and other method performance specifications have not been established for this body fluid. The test result must be integrated into the clinical context for interpretation. Gram stain for investigation of transfusion reactionOrdered By: Tez Irene on 04-11-2022 Microscopic observation Gram stain Nom (Unsp spec) [facility] Lactate dehydrogenase measur ement (enzymatic activity/volume)Ordered By: Tez Irene on 04-11-2022 LDH (Unsp spec) [Catalytic activity/Vol] 88 [IU]/mL [facility] Comment on above: No reference range e stablished LDH (Unsp spec) [Catalytic activity/Vol] 100 U/L 45-190 [facility] Manual body fluid eosinophil s/100 leukocytesOrdered By: Tez Irene on 04-11-2022 Eosinophils/100 WBC Manual cnt (Body fld) 0 /100{WBC} 0-3 [facility] Manual body fluid lymphocyte s/100 leukocytesOrdered By: Tez Irene on 04-11-2022 Lymphocytes/100 WBC Manual cnt (Body fld) 61 % [facility] Comment on above: The reference interv al and other method performance specifications have not been established for this body fluid. The test result must be integrated into the clinical context for interpretation. Neutrophils/100 WBC Manual c nt (Body fld)Ordered By: Tez Irene on 04-11-2022 Neutrophils/100 WBC (Body fld) 35 % [facility] Comment on above: The reference interv al and other method performance specifications have not been established for this body fluid. The test result must be integrated into the clinical context for interpretation. Troponin I.cardiac [Mass/vol ume] in Serum or Plasma by High sensitivity methodOrdered By: Tez Irene on 04-11-2022 Troponin I.cardiac High sensitivity method [Mass/Vol] 5 pg/mL 0-20 [facility] Albumin [Mass/volume] in Ser um or PlasmaOrdered By: Kali Longo on 04-10-2022 Albumin [Mass/Vol] 3.3 g/dL 3.2-5.5 [facility] Albumin [Mass/volume] in Ser um or PlasmaOrdered By: Estela Varma on 04-10-2022 Albumin [Mass/Vol] 3.4 g/dL 3.2-5.5 [facility] Bacterial blood cultureOrder ed By: Tez Irene on 04-10-2022 Bacteria identified Cx Nom (Bld) NO GROWTH 5 DAYS [facility] Basophils Auto (Bld) [#/Vol] Ordered By: Kali Longo on 04-10-2022 Basophils (Bld) [#/Vol] 0.1 10*3/uL 0.0-0.2 [facility] Basophils Auto (Bld) [#/Vol] Ordered By: Estela Varma on 04-10-2022 Basophils (Bld) [#/Vol] 0.1 10*3/uL 0.0-0.2 [facility] Basophils/100 WBC Auto (Bld) Ordered By: Kali Longo on 04-10-2022 Basophils/100 WBC (Bld) 1.0 % . [facility] Basophils/100 WBC Auto (Bld) Ordered By: Estela Varma on 04-10-2022 Basophils/100 WBC (Bld) 0.9 % . [facility] Creatinine and Glomerular fi ltration rate.predicted panel (S/P/Bld)Ordered By: Kali Longo on 04-10-2022 Creatinine [Mass/Vol] 0.86 mg/dL 0.64-1.27 [facility] Creatinine and Glomerular fi ltration rate.predicted panel (S/P/Bld)Ordered By: Estela Varma on 04-10-2022 Creatinine [Mass/Vol] 0.92 mg/dL 0.64-1.27 [facility] Eosinophils Auto (Bld) [#/Vo l]Ordered By: Kali Longo on 04-10-2022 Eosinophils (Bld) [#/Vol] 0.1 10*3/uL 0.0-0.45 [facility] Eosinophils Auto (Bld) [#/Vo l]Ordered By: Estela Varma on 04-10-2022 Eosinophils (Bld) [#/Vol] 0.2 10*3/uL 0.0-0.45 [facility] Eosinophils/100 WBC Auto (Bl d)Ordered By: Kali Longo on 04-10-2022 Eosinophils/100 WBC (Bld) 1.5 % . [facility] Eosinophils/100 WBC Auto (Bl d)Ordered By: Estela Varma on 04-10-2022 Eosinophils/100 WBC (Bld) 2.9 % . [facility] Erythrocyte distribution wid th Auto (RBC) [Ratio]Ordered By: Kali Longo on 04-10-2022 Erythrocyte distribution width (RBC) [Ratio] 14.1 % 12.0-14.8 [facility] Erythrocyte distribution wid th Auto (RBC) [Ratio]Ordered By: Estela Varma on 04-10-2022 Erythrocyte distribution width (RBC) [Ratio] 14.6 % 12.0-14.8 [facility] Estimated glomerular filtrat ion rate (GFR) non- AmericanOrdered By: Kali Longo on 04-10-2022 GFR/1.73 sq M.predicted among non-blacks MDRD (S/P/Bld) [Vol rate/Area] > 60 mL/Min [facility] Estimated glomerular filtrat ion rate (GFR) non- AmericanOrdered By: Estela Varma on 04-10-2022 GFR/1.73 sq M.predicted among non-blacks MDRD (S/P/Bld) [Vol rate/Area] > 60 mL/Min [facility] Globulin Calc (S) [Mass/Vol] Ordered By: Kali Longo on 04-10-2022 Globulin (S) [Mass/Vol] 3.1 g/dL [facility] Globulin Calc (S) [Mass/Vol] Ordered By: Estela Varma on 04-10-2022 Globulin (S) [Mass/Vol] 3.1 g/dL [facility] Hematocrit Auto (Bld) [Volum e fraction]Ordered By: Kali Longo on 04-10-2022 Hematocrit (Bld) [Volume fraction] 44.7 % 38.8-50.0 [facility] Hematocrit Auto (Bld) [Volum e fraction]Ordered By: Estela Varma on 04-10-2022 Hematocrit (Bld) [Volume fraction] 46.1 % 38.8-50.0 [facility] Hemoglobin [Mass/volume] in BloodOrdered By: Kali Longo on 04-10-2022 Hemoglobin (Bld) [Mass/Vol] 15.2 g/dL 13.0-17.0 [facility] Hemoglobin [Mass/volume] in BloodOrdered By: Estela Varma on 04-10-2022 Hemoglobin (Bld) [Mass/Vol] 15.5 g/dL 13.0-17.0 [facility] Laboratory - Chemistry and C hemistry - challengeOrdered By: Kali Longo on 04-10-2022 Natriuretic peptide B (Bld) [Mass/Vol] 19.0 pg/mL 5-100 [facility] Laboratory - Hematology and Cell countsOrdered By: Kali Longo on 04-10-2022 Nucleated RBC/100 WBC (Bld) [Ratio] 0.1 % 0-0.5 [facility] Laboratory - Hematology and Cell countsOrdered By: Estela Varma on 04-10-2022 Nucleated RBC/100 WBC (Bld) [Ratio] 0.1 % 0-0.5 [facility] Leukocytes [#/volume] in Blo od by Automated countOrdered By: Kali Longo on 04-10-2022 WBC (Bld) [#/Vol] 6.1 10*3/uL 4.5-11.0 [facility] Leukocytes [#/volume] in Blo od by Automated countOrdered By: Estela Varma on 04-10-2022 WBC (Bld) [#/Vol] 6.3 10*3/uL 4.5-11.0 [facility] Lymphocytes Auto (Bld) [#/Vo l]Ordered By: Kali Longo on 04-10-2022 Lymphocytes (Bld) [#/Vol] 0.9 10*3/uL 1.00-4.8 [facility] Lymphocytes Auto (Bld) [#/Vo l]Ordered By: Estela Varma on 04-10-2022 Lymphocytes (Bld) [#/Vol] 1.0 10*3/uL 1.00-4.8 [facility] Lymphocytes/100 WBC Auto (Bl d)Ordered By: Kali Longo on 04-10-2022 Lymphocytes/100 WBC (Bld) 14.2 % . [facility] Lymphocytes/100 WBC Auto (Bl d)Ordered By: Estela Varma on 04-10-2022 Lymphocytes/100 WBC (Bld) 16.2 % . [facility] MCH Auto (RBC) [Entitic mass ]Ordered By: Kali Longo on 04-10-2022 MCH (RBC) [Entitic mass] 32.9 pg 27.5-35.2 [facility] MCH Auto (RBC) [Entitic mass ]Ordered By: Estela Varma on 04-10-2022 MCH (RBC) [Entitic mass] 32.6 pg 27.5-35.2 [facility] MCHC Auto (RBC) [Mass/Vol]Or dered By: Kali Longo on 04-10-2022 MCHC (RBC) [Mass/Vol] 33.9 g/dL 32.5-35.6 [facility] MCHC Auto (RBC) [Mass/Vol]Or dered By: Estela Varma on 04-10-2022 MCHC (RBC) [Mass/Vol] 33.6 g/dL 32.5-35.6 [facility] MCV Auto (RBC) [Entitic vol] Ordered By: Kali Longo on 04-10-2022 MCV (RBC) [Entitic vol] 96.9 fL 83.5-101 [facility] MCV Auto (RBC) [Entitic vol] Ordered By: Estela Varma on 04-10-2022 MCV (RBC) [Entitic vol] 97.2 fL 83.5-101 [facility] Monocytes Auto (Bld) [#/Vol] Ordered By: Kali Longo on 04-10-2022 Monocytes (Bld) [#/Vol] 0.6 10*3/uL 0.0-0.8 [facility] Monocytes Auto (Bld) [#/Vol] Ordered By: Estela Varma on 04-10-2022 Monocytes (Bld) [#/Vol] 0.5 10*3/uL 0.0-0.8 [facility] Monocytes/100 WBC Auto (Bld) Ordered By: Kali Longo on 04-10-2022 Monocytes/100 WBC (Bld) 9.9 % . [facility] Monocytes/100 WBC Auto (Bld) Ordered By: Estela Varma on 04-10-2022 Monocytes/100 WBC (Bld) 8.6 % . [facility] Neutrophils Auto (Bld) [#/Vo l]Ordered By: Kali Longo on 04-10-2022 Neutrophils (Bld) [#/Vol] 4.5 10*3/uL 1.8-7.7 [facility] Neutrophils Auto (Bld) [#/Vo l]Ordered By: Estela Varma on 04-10-2022 Neutrophils (Bld) [#/Vol] 4.5 10*3/uL 1.8-7.7 [facility] Neutrophils/100 WBC Auto (Bl d)Ordered By: Kali Longo on 04-10-2022 Neutrophils/100 WBC (Bld) 73.4 % . [facility] Neutrophils/100 WBC Auto (Bl d)Ordered By: Estela Varma on 04-10-2022 Neutrophils/100 WBC (Bld) 71.4 % . [facility] No Panel InformationOrdered By: Kali Longo on 04-10-2022 D-Dimer Quantitative (PE/DVT) 529 ng/mL 0-243 [facility] Comment on above: The reference range for [...] conditions. Estimated GFR () > 60 mL/Min [facility] Comment on above: GFR estimated refere nce range: According to KDOQI guidelines, <60 ml/min/1.73m2 is sufficient to diagnose a patient with chronic kidney disease. Pharmacy Creatinine Clearance (Chem 92.25 [facility] No Panel InformationOrdered By: Estela Varma on 04-10-2022 Estimated GFR () > 60 mL/Min [facility] Comment on above: GFR estimated refere nce range: According to KDOQI guidelines, <60 ml/min/1.73m2 is sufficient to diagnose a patient with chronic kidney disease. Pharmacy Creatinine Clearance (Chem 89.21 [facility] Platelet mean volume Auto (B ld) [Entitic vol]Ordered By: Kali Longo on 04-10-2022 Platelet mean volume (Bld) [Entitic vol] 7.0 fL 6.6-10.1 [facility] Platelet mean volume Auto (B ld) [Entitic vol]Ordered By: Estela Varma on 04-10-2022 Platelet mean volume (Bld) [Entitic vol] 7.4 fL 6.6-10.1 [facility] Platelets Auto (Bld) [#/Vol] Ordered By: Kali Longo on 04-10-2022 Platelets (Bld) [#/Vol] 242 10*3/uL 150-450 [facility] Platelets Auto (Bld) [#/Vol] Ordered By: Estela Varma on 04-10-2022 Platelets (Bld) [#/Vol] 239 10*3/uL 150-450 [facility] Protein [Mass/volume] in Ser um or PlasmaOrdered By: Kali Longo on 04-10-2022 Protein [Mass/Vol] 6.4 g/dL 6.1-7.9 [facility] Protein [Mass/volume] in Ser um or PlasmaOrdered By: Estela Varma on 04-10-2022 Protein [Mass/Vol] 6.5 g/dL 6.1-7.9 [facility] RBC Auto (Bld) [#/Vol]Ordere d By: Kali Longo on 04-10-2022 RBC (Bld) [#/Vol] 4.61 10*6/uL 3.90-5.60 [facility] RBC Auto (Bld) [#/Vol]Ordere d By: Estela Varma on 04-10-2022 RBC (Bld) [#/Vol] 4.75 10*6/uL 3.90-5.60 [facility] Serum or plasma alanine glynn otransferase measurement without P-5'-P (enzymatic activiOrdered By: Kali Longo on 04-10-2022 ALT No additional P-5'-P [Catalytic activity/Vol] 13 U/L 1060 [facility] Serum or plasma alanine glynn otransferase measurement without P-5'-P (enzymatic activiOrdered By: Estela Varma on 04-10-2022 ALT No additional P-5'-P [Catalytic activity/Vol] 14 U/L 10-60 [facility] Serum or plasma albumin/glob ulin mass ratioOrdered By: Kali Longo on 04-10-2022 Albumin/Globulin [Mass ratio] 1.1 {ratio} [facility] Serum or plasma albumin/glob ulin mass ratioOrdered By: Estela Varma on 04-10-2022 Albumin/Globulin [Mass ratio] 1.1 {ratio} [facility] Serum or plasma alkaline abhijit sphatase measurement (enzymatic activity/volume)Ordered By: Kali Longo on 04-10-2022 ALP [Catalytic activity/Vol] 127 U/L [facility] Serum or plasma alkaline abhijit sphatase measurement (enzymatic activity/volume)Ordered By: Estela Varma on 04-10-2022 ALP [Catalytic activity/Vol] 128 U/L [facility] Serum or plasma anion gap de terminationOrdered By: Kali Longo on 04-10-2022 Anion gap [Moles/Vol] 15.8 mmol/L 6.0-15.0 [facility] Serum or plasma anion gap de terminationOrdered By: Estela Varma on 04-10-2022 Anion gap [Moles/Vol] 17.3 mmol/L 6.0-15.0 [facility] Serum or plasma aspartate am inotransferase measurement (enzymatic activity/volume)Ordered By: Kali Longo on 04-10-2022 AST [Catalytic activity/Vol] 19 U/L [facility] Serum or plasma aspartate am inotransferase measurement (enzymatic activity/volume)Ordered By: Estela Varma on 04-10-2022 AST [Catalytic activity/Vol] 19 U/L [facility] Serum or plasma calcium ledy urement (mass/volume)Ordered By: Kali Longo on 04-10-2022 Calcium [Mass/Vol] 8.5 mg/dL 8.2-10.2 [facility] Serum or plasma calcium ledy urement (mass/volume)Ordered By: Estela Varma on 04-10-2022 Calcium [Mass/Vol] 8.5 mg/dL 8.2-10.2 [facility] Serum or plasma carcinoembry onic antigen measurement (mass/volume)Ordered By: Estela Varma on 04-10-2022 Carcinoembryonic Ag [Mass/Vol] 10.5 ng/mL 0.0-3.0 [facility] Serum or plasma chloride carlyn surement (moles/volume)Ordered By: Kali Longo on 04-10-2022 Chloride [Moles/Vol] 95 mmol/L 95-114 [facility] Serum or plasma chloride carlyn surement (moles/volume)Ordered By: Estela Varma on 04-10-2022 Chloride [Moles/Vol] 98 mmol/L 95-114 [facility] Serum or plasma glucose ledy urement (mass/volume)Ordered By: Kali Longo on 04-10-2022 Glucose [Mass/Vol] 75 mg/dL 70-100 [facility] Comment on above: ADA recommended refe rence rangeRandom Glucose Reference Range is dependent on time and content of last meal. Glucose of more than 200 mg/dL in a nonstressed, ambulatory subject supports the diagnosis of Diabetes Mellitus. Serum or plasma glucose ledy urement (mass/volume)Ordered By: Estela Varma on 04-10-2022 Glucose [Mass/Vol] 73 mg/dL 70-100 [facility] Comment on above: ADA recommended refe rence rangeRandom Glucose Reference Range is dependent on time and content of last meal. Glucose of more than 200 mg/dL in a nonstressed, ambulatory subject supports the diagnosis of Diabetes Mellitus. Serum or plasma potassium me asurement (moles/volume)Ordered By: Kali Longo on 04-10-2022 Potassium [Moles/Vol] 4.2 mmol/L 3.5-5.1 [facility] Serum or plasma potassium me asurement (moles/volume)Ordered By: Estela Varma on 04-10-2022 Potassium [Moles/Vol] 4.0 mmol/L 3.5-5.1 [facility] Serum or plasma sodium measu rement (moles/volume)Ordered By: Kali Longo on 04-10-2022 Sodium [Moles/Vol] 130 mmol/L 136-146 [facility] Serum or plasma sodium measu rement (moles/volume)Ordered By: Estela Varma on 04-10-2022 Sodium [Moles/Vol] 131 mmol/L 136-146 [facility] Serum or plasma total biliru bin measurement (mass/volume)Ordered By: Kali Longo on 04-10-2022 Bilirubin [Mass/Vol] 0.6 mg/dL 0.3-1.2 [facility] Serum or plasma total biliru bin measurement (mass/volume)Ordered By: Estela Varma on 04-10-2022 Bilirubin [Mass/Vol] 0.7 mg/dL 0.3-1.2 [facility] Serum or plasma total carbon dioxide measurement (moles/volume)Ordered By: Kali Longo on 04-10-2022 CO2 [Moles/Vol] 23.4 mmol/L 22.0-30.0 [facility] Serum or plasma total carbon dioxide measurement (moles/volume)Ordered By: Estela Varma on 04-10-2022 CO2 [Moles/Vol] 19.7 mmol/L 22.0-30.0 [facility] Serum or plasma urea nitroge n measurement (mass/volume)Ordered By: Kali Longo on 04-10-2022 Urea nitrogen [Mass/Vol] 7 mg/dL 02-03 [facility] Serum or plasma urea nitroge n measurement (mass/volume)Ordered By: Estela Varma on 04-10-2022 Urea nitrogen [Mass/Vol] 7 mg/dL 02-03 [facility] TSH DL <= 0.005 mIU/L QnOrde red By: Estela Varma on 04-10-2022 TSH Qn 2.57 m[IU]/L 0.45-5.33 [facility] Troponin I.cardiac [Mass/vol ume] in Serum or Plasma by High sensitivity methodOrdered By: Kali Longo on 04-10-2022 Troponin I.cardiac High sensitivity method [Mass/Vol] 5 pg/mL 0-20 [facility] Creatinine and Glomerular fi ltration rate.predicted panel (S/P/Bld)Ordered By: Estela Varma on 01-03-2022 Creatinine [Mass/Vol] 0.69 mg/dL 0.64-1.27 [facility] Estimated glomerular filtrat ion rate (GFR) non- AmericanOrdered By: Estela Varma on 01-03-2022 GFR/1.73 sq M.predicted among non-blacks MDRD (S/P/Bld) [Vol rate/Area] > 60 mL/Min [facility] No Panel InformationOrdered By: Estela Varma on 01-03-2022 Estimated GFR () > 60 mL/Min [facility] Comment on above: GFR estimated refere nce range: According to KDOQI guidelines, <60 ml/min/1.73m2 is sufficient to diagnose a patient with chronic kidney disease. Pharmacy Creatinine Clearance (Chem 122.86 [facility] Serum or plasma urea nitroge n measurement (mass/volume)Ordered By: Estela Varma on 01-03-2022 Urea nitrogen [Mass/Vol] 3 mg/dL 02-03 [facility] Office Visit (Cardiology)on 11-29-2021 Follow-up visit Diagnoses/Problems Assessed Lung cancer (162.9) (C34.90) Chest pain (786.50) (R07.9) Former smoker (V15.82) (Z87.891) quit 2020 1ppd Body mass index (BMI) of 20.0 to 20.9 in adult (V85.1) (Z68.20) COPD (chronic obstructive pulmonary disease) (496) (J44.9) Orders Health Maintenance Depression Follow-up Visit Outpatient Follow-up Status: Complete Done: [id number] SocHx: Former smoker Tobacco Use Screening; Status:Complete; Done: [id number] Patient Instructions By signing my name below, I, Farhat Ackerman RN ,Scribe, attest that this documentation has been prepared under the direction and in the presence of Dr. Lukas Oliveira DO. All medical record entries made by the Scribzully were at my direction and personally dictated [...] Complaint Follow up Heart Cath results. 56-year-old Afro-Greek gentleman returns with chief complaints of chest [...] catheterization performed this year Recommendations: We did substance abuse counselor him on seeking further [...] negative for complaint. Vitals Vital Signs Recorded: [id number] 09:05AM Heart Rate96, R Radial [id number], RUE, Sitting Mwsxrtyjq56, RUE, Sitting Blood Pressure Cuff SizeAdult Height6 ft [id number] lb 8 oz BMI Jxocdtygys04.28 kg/m2 BSA Calculated1.88 Tobacco Useb) No (more content not included)... Normal [facility] CARDIAC SONIA 3-6on 2 CK [Catalytic activity/Vol] 55 U/L Normal 39-308 [facility] Comment on above: Performed By: #### C MREP #### [facility] [address], [place] [address] Dr. Sushant Pradhan CK.MB [Mass/Vol] 1.25 ng/mL Normal <=3.60 [facility] Comment on above: Performed By: #### C MREP #### [facility] [address], [place] [address] Dr. Sushant Pradhan HSTROP 4.5 pg/mL Normal 4.0-76.1 [facility] Comment on above: Result Comment: CUT- OFF POINTS HAVE BEEN ESTABLISHED BASED ON THE FOURTH UNIVERSAL DEFINITIONS OF MYOCARDIAL INFARCTION. THE UPPER REFERENCE LIMIT (URL) OF TROPONIN, DEFINED THE 99TH PERCENTILE OF cTnI DISTRIBUTION IN A REFERENCE POPULATION, HAS BEEN CONFIRMED THE DECISION THRESHOLD FOR WI DIAGNOSIS. Performed By: #### C MREP #### [facility] [address] [place] [address] Dr. Sushant Pradhan CBC AUTO DIFFon 11-24-2021 BASO # 0.0 103/ul Normal 0.0-0.1 [facility] Comment on above: Performed By: #### C BC #### [facility] [address] [place] [address] Dr. Sushant Pradhan Basophils/100 WBC (Bld) 0.2 % Normal 0.2-2.0 [facility] Comment on above: Performed By: #### C BC #### [facility] [address] [place] [address] Dr. Sushant Pradhan EO # 0.0 103/ul Normal 0.0-0.7 [facility] Comment on above: Performed By: #### C BC #### [facility] [address] [place] [address] Dr. Sushant Pradhan Eosinophils/100 WBC (Bld) 0.0 % Critically low 0.9-7.0 [facility] Comment on above: Performed By: #### C BC #### [facility] [address] [place] [address] Dr. Sushant Pradhan Erythrocyte distribution width (RBC) [Ratio] 14.7 % Normal 11.0-15.0 [facility] Comment on above: Performed By: #### C BC #### [facility] [address] [place] [address] Dr. Sushant Pradhan Hematocrit (Bld) [Volume fraction] 35.5 % Critically low 42.0-54.0 [facility] Comment on above: Performed By: #### C BC #### [facility] [address] [place] [address] Dr. Sushant Pradhan Hemoglobin (Bld) [Mass/Vol] 12.8 g/dL Critically low 14.0-18.0 [facility] Comment on above: Performed By: #### C BC #### [facility] [address] [place] [address] [address] Sushant Pradhan IG # 0.01 10e3/ul Normal 0.00-0.03 [facility] Comment on above: Performed By: #### C BC #### [facility] [address] [place] [address] Dr. Sushant Pradhan IG % 0.2 % Normal 0.0-0.5 [facility] Comment on above: Performed By: #### C BC #### [facility] [address] [place] [address] Dr. Sushant Pradhan LYMPH # 0.5 103/ul Critically low 1.2-3.8 [facility] Comment on above: Performed By: #### C BC #### [facility] [address] [place] [address] Dr. Sushant Pradhan Lymphocytes/100 WBC (Bld) 8.2 % Critically low 20.5-60.0 [facility] Comment on above: Performed By: #### C BC #### [facility] [address] [place] [address] Dr. Sushant Pradhan MANUAL DIFF REQ NO Normal [facility] Comment on above: Performed By: #### C BC #### [facility] [address] [place] [address] Dr. Sushant Pradhan MCH (RBC) [Entitic mass] 32.5 pg Normal 25.9-34.0 [facility] Comment on above: Performed By: #### C BC #### [facility] [address] [place] [address] Dr. Sushant Pradhan MCHC (RBC) [Mass/Vol] 36.1 g/dL Critically high 29.9-35.2 [facility] Comment on above: Performed By: #### C BC #### [facility] [address] [place] [address] Dr. Sushant Pradhan MCV (RBC) [Entitic vol] 90.1 fL Normal 80.0-94.0 [facility] Comment on above: Performed By: #### C BC #### [facility] [address] [address] [address] Sushant Pradhan MONO # 0.2 103/ul Critically low 0.3-0.8 [facility] Comment on above: Performed By: #### C BC #### [facility] [address] [address] [address] Sushant Pradhan Monocytes/100 WBC (Bld) 3.5 % Normal 1.7-12.0 [facility] Comment on above: Performed By: #### C BC #### [facility] [address] [address] [address] Sushant Pradhan NEUT # 4.8 103/ul Normal 1.4-6.5 [facility] Comment on above: Performed By: #### C BC #### [facility] [address] [address] [address] Sushant Pradhan Neutrophils/100 WBC (Bld) 87.9 % Critically high 43.0-75.0 [facility] Comment on above: Performed By: #### C BC #### [facility] [address] [address] [address] Sushant Pradhan Platelet mean volume (Bld) [Entitic vol] 9.4 fL Critically low 9.5-13.5 [facility] Comment on above: Performed By: #### C BC #### [facility] [address] [place] [address] Dr. Sushant Pradhan PLT 135 103/ul Critically low 150-450 [facility] Comment on above: Performed By: #### C BC #### [facility] [address] [place] [address] Dr. Sushant Pradhan RBC 3.94 106/ul Critically low 4.70-6.10 [facility] Comment on above: Performed By: #### C BC #### [facility] [address] [place] [address] Dr. Sushant Pradhan WBC 5.5 103/ul Normal 4.0-11.0 [facility] Comment on above: Performed By: #### C BC #### [facility] [address] [place], [place] [id number] Dr. Sushant Pradhan LIPID PROFILEon 11-24-2021 CHOL-HDL RATIO NORM SEE BELOW Normal [facility] Comment on above: Result Comment: 3.3 - 4.4 LOW RISK 4.4 - 7.1 AVERAGE RISK 7.1 - 11.0 MODERATE RISK >11.0 HIGH RISK Performed By: #### L IPID, BMP #### [facility] [address] [address] [address] Sushant Pradhan Cholesterol [Mass/Vol] 126 mg/dL Normal <=200 [facility] Comment on above: Performed By: #### L IPID, BMP #### [facility] [address] [place] [address] [address] Sushant Pradhan Cholesterol in HDL [Mass/Vol] 73 mg/dL Critically high 40-60 [facility] Comment on above: Performed By: #### L IPID, BMP #### [facility] [address] [place] [address] Dr. Sushant Pradhan Cholesterol in LDL [Mass/Vol] 44.2 mg/dL Normal [facility] Comment on above: Performed By: #### L IPID, BMP #### [facility] [address] [address] [address] Sushant Pradhan Cholesterol.total/Cho lesterol in HDL [Mass ratio] 1.7 {ratio} Normal [facility] Comment on above: Performed By: #### L IPID, BMP #### [facility] [address] [address] [address] Sushant Pradhan HDL NORMAL > or = 60 mg/dl - LO W CARDIOVASCULAR RISK <40 mg/dl - HIGH CARDIOVASCULAR RISK Normal [facility] Comment on above: Performed By: #### L IPID, BMP #### [facility] [address] [address] [address] Sushant Pradhan LDL CALC NORMAL SEE BELOW Normal [facility] Comment on above: Result Comment: <100 mg/dl OPTIMAL 100 - 129 mg/dl NEAR OR ABOVE OPTIMAL 130 - 159 mg/dl BORDERLINE HIGH 160 - 189 mg/dl HIGH >190 mg/dl VERY HIGH Performed By: #### L IPID, BMP #### [facility] [address] [address] [address] Sushant Pradhan Triglyceride [Mass/Vol] 44 mg/dL Normal <=150 [facility] Comment on above: Performed By: #### L IPID, BMP #### [facility] [address] [address] [address] Sushant Pradhan VLDL CALC 8.8 mg/dL Normal [facility] Comment on above: Performed By: #### L IPID, BMP #### [facility] [address] [address] [address] Sushant Pradhan NM STRESS/REST MULTIon 11-24 NM STRESS/REST MULTI Patient: EDISON ECHOLS Exam Date: 11/24/2021 : 1965 Gender:M Ordering : DR LIZBET LARA . Admission #: [id number] Family : Order #: [id number] CLICK HERE TO VIEW EXAM RADIOLOGY REPORT [...] Pagan MD on 11/24/2021 at 15:06 Normal [facility] PROF CHEM 8 (BAS METB)on Anion gap [Moles/Vol] 10.7 mmol/L Normal [facility] Comment on above: Performed By: #### L IPID, BMP #### [facility] [address] [address] [address] Sushant Pradhan Calcium [Mass/Vol] 8.5 mg/dL Normal 8.5-10.1 [facility] Comment on above: Performed By: #### L IPID, BMP #### [facility] [address] [address] [address] Sushant Pradhan Chloride [Moles/Vol] 96 mmol/L Critically low 98-107 [facility] Comment on above: Performed By: #### L IPID, BMP #### [facility] [address] [place] [address] Dr. Sushant Pradhan CO2 [Moles/Vol] 22.0 mmol/L Normal 21.0-32.0 [facility] Comment on above: Performed By: #### L IPID, BMP #### [facility] [address] [place] [address] Dr. Sushant Pradhan Creatinine [Mass/Vol] 1.04 mg/dL Normal 0.70-1.30 [facility] Comment on above: Performed By: #### L IPID, BMP #### [facility] [address] [place] [address] Dr. Sushant Pradhan EGFR-AF AZERBAIJANI >60 Normal >=60 [facility] Comment on above: Performed By: #### L IPID, BMP #### [facility] [address] [place] [address] [address] Sushant Pradhan EGFR-NON AF AZERBAIJANI >60 Normal >=60 [facility] Comment on above: Performed By: #### L IPID, BMP #### [facility] [address] [place] [address] Dr. Sushant Pradhan Glucose [Mass/Vol] 139 mg/dL Critically high 74-106 [facility] Comment on above: Performed By: #### L IPID, BMP #### [facility] [address] [place] [address] Dr. Sushant Pradhan Potassium [Moles/Vol] 4.2 mmol/L Normal 3.5-5.1 [facility] Comment on above: Performed By: #### L IPID, BMP #### [facility] [address] [place] [address] Dr. Sushant Pradhan Sodium [Moles/Vol] 127 mmol/L Critically low 136-145 [facility] Comment on above: Performed By: #### L IPID, BMP #### [facility] [address] [place] [address] Dr. Sushant Pradhan Urea nitrogen [Mass/Vol] 12.0 mg/dL Normal 7.0-18.0 [facility] Comment on above: Performed By: #### L IPID, BMP #### [facility] [address] [place] [address] Dr. Sushant Pradhan Urea nitrogen/Creatinine [Mass ratio] 11.5 mg/mg Normal [facility] Comment on above: Performed By: #### L IPID, BMP #### [facility] [address] [place] [address] Dr. Sushant Pradhan BNPon 11-23-2021 Natriuretic peptide B (Bld) [Mass/Vol] 189.0 pg/mL Normal <=900.0 [facility] Comment on above: Performed By: #### B PIT SHOVELER, HSTROPN, BMP #### [facility] [address] [place] [address] Dr. Sushant Pradhan CARDIAC SONIA 3-6on 2 CK [Catalytic activity/Vol] 73 U/L Normal 39-308 [facility] Comment on above: Performed By: #### C MREP #### [facility] [address] [place] [address] Dr. Sushant Pradhan CK.MB [Mass/Vol] 1.78 ng/mL Normal <=3.60 [facility] Comment on above: Performed By: #### C MREP #### [facility] [address] [place] [address] Dr. Sushant Pradhan HSTROP 4.2 pg/mL Normal 4.0-76.1 [facility] Comment on above: Result Comment: CUT- OFF POINTS HAVE BEEN ESTABLISHED BASED ON THE FOURTH UNIVERSAL DEFINITIONS OF MYOCARDIAL INFARCTION. THE UPPER REFERENCE LIMIT (URL) OF TROPONIN, DEFINED THE 99TH PERCENTILE OF cTnI DISTRIBUTION IN A REFERENCE POPULATION, HAS BEEN CONFIRMED THE DECISION THRESHOLD FOR [place] DIAGNOSIS. Performed By: #### C MREP #### [facility] [address] [place] [address] Dr. Sushant Pradhan CBC AUTO DIFFon 11-23-2021 BASO # 0.0 103/ul Normal 0.0-0.1 [facility] Comment on above: Performed By: #### C BC #### [facility] [address] [place] [address] Dr. Sushant Pradhan Basophils/100 WBC (Bld) 0.5 % Normal 0.2-2.0 [facility] Comment on above: Performed By: #### C BC #### [facility] [address] [place] [address] Dr. Sushant Pradhan EO # 0.1 103/ul Normal 0.0-0.7 [facility] Comment on above: Performed By: #### C BC #### [facility] [address] [place] [address] Dr. Sushant Pradhan Eosinophils/100 WBC (Bld) 0.9 % Normal 0.9-7.0 [facility] Comment on above: Performed By: #### C BC #### [facility] [address] [place] [address] Dr. Sushant Pradhan Erythrocyte distribution width (RBC) [Ratio] 15.3 % Critically high 11.0-15.0 [facility] Comment on above: Performed By: #### C BC #### [facility] [address] [place] [address] Dr. Sushant Pradhan Hematocrit (Bld) [Volume fraction] 38.7 % Critically low 42.0-54.0 [facility] Comment on above: Performed By: #### C BC #### [facility] [address] [place] [address] Dr. Sushant Pradhan Hemoglobin (Bld) [Mass/Vol] 14.0 g/dL Normal 14.0-18.0 [facility] Comment on above: Performed By: #### C BC #### [facility] [address] [place] [address] Dr. Sushant Pradhan IG # 0.01 10e3/ul Normal 0.00-0.03 [facility] Comment on above: Performed By: #### C BC #### [facility] [address] [place] [address] Dr. Sushant Pradhan IG % 0.2 % Normal 0.0-0.5 [facility] Comment on above: Performed By: #### C BC #### [facility] [address] [place] [address] Dr. Sushant Pradhan LYMPH # 1.1 103/ul Critically low 1.2-3.8 [facility] Comment on above: Performed By: #### C BC #### [facility] [address] [place] [address] Dr. Sushant Pradhan Lymphocytes/100 WBC (Bld) 17.2 % Critically low 20.5-60.0 [facility] Comment on above: Performed By: #### C BC #### [facility] [address] [place] [address] Dr. Sushant Pradhan MANUAL DIFF REQ NO Normal [facility] Comment on above: Performed By: #### C BC #### [facility] [address] [place] [address] Dr. Sushant Pradhan MCH (RBC) [Entitic mass] 32.7 pg Normal 25.9-34.0 [facility] Comment on above: Performed By: #### C BC #### [facility] [address] [place] [address] Dr. Sushant Pradhan MCHC (RBC) [Mass/Vol] 36.2 g/dL Critically high 29.9-35.2 [facility] Comment on above: Performed By: #### C BC #### [facility] [address] [place] [address] Dr. Sushant Pradhan MCV (RBC) [Entitic vol] 90.4 fL Normal 80.0-94.0 [facility] Comment on above: Performed By: #### C BC #### [facility] [address] [place] [address] Dr. Sushant Pradhan MONO # 0.5 103/ul Normal 0.3-0.8 [facility] Comment on above: Performed By: #### C BC #### [facility] [address] [place] [address] Dr. Sushant Pradhan Monocytes/100 WBC (Bld) 7.8 % Normal 1.7-12.0 [facility] Comment on above: Performed By: #### C BC #### [facility] [address] [place] [address] Dr. Sushant Pradhan NEUT # 4.7 103/ul Normal 1.4-6.5 [facility] Comment on above: Performed By: #### C BC #### [facility] [address] [place] [address] Dr. Sushant Pradhan Neutrophils/100 WBC (Bld) 73.4 % Normal 43.0-75.0 [facility] Comment on above: Performed By: #### C BC #### [facility] [address] [place] [address] Dr. Sushant Pradhan Platelet mean volume (Bld) [Entitic vol] 9.1 fL Critically low 9.5-13.5 [facility] Comment on above: Performed By: #### C BC #### [facility] [address] [place] [address] Dr. Sushant Pradhan PLT 153 103/ul Normal 150-450 [facility] Comment on above: Performed By: #### C BC #### [facility] [address] [place] [address] Dr. Sushant Pradhan RBC 4.28 106/ul Critically low 4.70-6.10 [facility] Comment on above: Performed By: #### C BC #### [facility] [address] [place] [address] Dr. Sushant Pradhan WBC 6.4 103/ul Normal 4.0-11.0 [facility] Comment on above: Performed By: #### C #### [facility] [address] [address] [address] Sushant Pradhan CTA CHEST WO W [...] MARCE PAGAN Date: 2021-11-23 15:47 Normal [facility]11 SARS-CoV-2 (COVID-19) RNA DEANA+probe Ql (Unsp spec) Not detected Normal NOT DETECTED [facility] Comment on above: Result Comment: When [...] for this test is supported by the [employer] and Human Service's declaration that [...] used). Performed By: #### C BC #### [facility] [address] [place] [address] Dr. Sushant Pradhan PROF CHEM 8 (BAS METB)on Anion gap [Moles/Vol] 13.9 mmol/L Normal [facility] Comment on above: Performed By: #### B PIT SHOVELER, HSTROPN, BMP #### [facility] [address] [place] [address] Dr. Sushant Pradhan Calcium [Mass/Vol] 8.4 mg/dL Critically low 8.5-10.[address] [facility] Comment on above: Performed By: #### B PIT SHOVELER, HSTROPN, BMP #### [facility] [address] [place] [address] Dr. Sushant Pradhan Chloride [Moles/Vol] 94 mmol/L Critically low 98-107 [facility] Comment on above: Performed By: #### B PIT SHOVELER, HSTROPN, BMP #### [facility] [address] [place] [address] Dr. Sushant Pradhan CO2 [Moles/Vol] 24.7 mmol/L Normal 21.0-32.0 [facility] Comment on above: Performed By: #### B PIT SHOVELER, HSTROPN, BMP #### [facility] [address] [place] [address] Dr. Sushant Pradhan Creatinine [Mass/Vol] 0.97 mg/dL Normal 0.70-1.30 [facility] Comment on above: Performed By: #### B PIT SHOVELER, HSTROPN, BMP #### [facility] [address] [place] [address] Dr. Sushant Pradhan EGFR-AF AZERBAIJANI >60 Normal >=60 [facility] Comment on above: Performed By: #### B PIT SHOVELER, HSTROPN, BMP #### [facility] [address] [place] [address] Dr. Sushant Pradhan EGFR-NON AF AZERBAIJANI >60 Normal >=60 [facility] Comment on above: Performed By: #### B PIT SHOVELER, HSTROPN, BMP #### [facility] [address] [place] [address] Dr. Sushant Pradhan Glucose [Mass/Vol] 76 mg/dL Normal 74-106 [facility] Comment on above: Performed By: #### B PIT SHOVELER, HSTROPN, BMP #### [facility] [address] [place] [address] Dr. Sushant Pradhan Potassium [Moles/Vol] 4.6 mmol/L Normal 3.5-5.1 [facility] Comment on above: Performed By: #### B PIT SHOVELER, HSTROPN, BMP #### [facility] [address] [place] [address] Dr. Sushant Pradhan Sodium [Moles/Vol] 128 mmol/L Critically low 136-145 [facility] Comment on above: Performed By: #### B PIT SHOVELER, HSTROPN, BMP #### [facility] [address] [place] [address] Dr. Sushant Pradhan Urea nitrogen [Mass/Vol] 9.0 mg/dL Normal 7.0-18.0 [facility] Comment on above: Performed By: #### B PIT SHOVELER, HSTROPN, BMP #### [facility] [address] [place] [address] Dr. Sushant Pradhan Urea nitrogen/Creatinine [Mass ratio] 9.3 mg/mg Normal [facility] Comment on above: Performed By: #### B PIT SHOVELER, HSTROPN, BMP #### [facility] [address] [place] [address] Dr. Sushant Pradhan TROPONIN, HIGH SENSITIVITYon 11-23-2021 HSTROP 4.4 pg/mL Normal 4.0-76.1 [facility] Comment on above: Result Comment: CUT- OFF POINTS HAVE BEEN ESTABLISHED BASED ON THE FOURTH UNIVERSAL DEFINITIONS OF MYOCARDIAL INFARCTION. THE UPPER REFERENCE LIMIT (URL) OF TROPONIN, DEFINED THE 99TH PERCENTILE OF cTnI DISTRIBUTION IN A REFERENCE POPULATION, HAS BEEN CONFIRMED THE DECISION THRESHOLD FOR [place] DIAGNOSIS. Performed By: #### B PIT SHOVELER, HSTROPN, BMP #### [facility] [address] [place], [place] [address] Dr. Sushant Pradhan Laboratory - Chemistry and C hemistry - challengeon 09-09-2021 Cholesterol [Mass/Vol] 125\S\125 below low threshold 140-200 [facility] 250 DO Work Phone: Comment on above: Chol less than 200 m g/dl low risk Chol 201-239 mg/dl borderline risk Chol 240 mg/dl and greater high risk Cholesterol in LDL [Mass/Vol] 46\S\46 Normal 0-100 [facility] 250 DO Work Phone: Comment on above: LDL ATP III CLASSIFI CATION LDL less than 100 mg/dL Optimal LDL 100-129 mg/dL Near or above optimal LDL 130-159 mg/dL Borderline high LDL 160-189 mg/dL High LDL greater than 189 mg/dL Very high Laboratory - Microbiology an d Antimicrobial susceptibilityon 09-09-2021 SARS-CoV-2 (COVID-19) RNA DEANA+probe Ql (Unsp spec) [place] [address] DO Work Phone: No Panel Informationon 09-09 78.5\S\78.5 above high threshold 25.1-36.5 [facility] 250 DO Work Phone: Comment on above: PERFORMED BY:[address] [place], [place] [phone] MEDICAL DIRECTORCATY DELCID M.D. 1.0\S\1.0 Normal [place] [address] DO Work Phone: Comment on above: INR [...] valves: 3 - 4.5 11.5\S\11.5 Normal 9.0-12.9 [facility] [place] Miya corbett 250 DO Work Phone: 1.8\S\1.8 Normal <5.0 [facility] Miya corbett 250 DO Work Phone: Comment on above: PERFORMED BY:[facility], [place] [phone] MEDICAL DIRECTORCATY DELCID M.D. 11\S\11 Normal [facility] Miya corbett 250 DO Work Phone: 57\S\57 Normal 35-149 [facility] Miya corbett 250 DO Work Phone: Comment on above: TRIG ATP III CLASSIF ICATION TRIG less than 150 mg/dL Normal TRIG 150-199 mg/dL Borderline high TRIG 200-500 mg/dL High TRIG greater than 500 mg/dL Very high Standard traceable to the Center for Disease Conrtrol and Prevention (CDC) test method. 68\S\68 Normal 29-71 [facility] Miya corbett 250 DO Work Phone: Comment on above: HDL CHOL ATP-III CLA SSIFICATION Cardiovascular Risk HDL > or equal to 60 mg/dL LOW HDL < 40 mg/dL HIGH Negative Normal Negative [facility] Miya Hastings DO Work Phone: Comment on above: This is a duplicate Jonna SARS Antigen (EROS) result to be used for statistical tracking purpose only.PERFORMED BY:[place] [address], [place] [phone] MEDICAL DIRECTORCATY DELCID M.D. Office Visit (Cardiology)on [...] Patient Instructions By signing my name below, IKarin LPN, Scribe, attest that this documentation has [...] pain and dyspnea. Patient is a 56-year-old -Greek gentleman returns and seen in cardiology consultation [...] negative for complaint. Vitals Vital Signs Recorded: [id number] 10:09AMRecorded: [id number] 10:05AM [id number], LUE, [id number], RUE, Sitting [id number], LUE, [id number], RUE, Sitting Heart Rate96, Apical Height6 ft [id number] lb BMI Wcorwfsnxt45.16 kg/m2 BSA (more content not included)... Normal [employer] Tobacco Screening.on 022 Adult depression screening assessment Yes -[facility] ned [facility] y 250 DO Work Phone: Fall risk assessment c) Not medically indicated [facility] y 250 DO Work Phone: Tobacco use status CP b) No [facility] 250 DO Work Phone: Tobacco Screening. 3-Nearly every day [facility] y 250 DO Work Phone: Tobacco Screening. 2-More than half the days [facility] y 250 DO Work Phone: Tobacco Screening. 0-Not at all [facility]ie y 250 DO Work Phone: Tobacco Screening. Extremely Difficult [facility] HeartUlises y 250 DO Work Phone: Albumin [Mass/volume] in Ser um or PlasmaOrdered By: Estela Varma on 09-02-2021 Albumin [Mass/Vol] 3.8 g/dL 3.2-5.5 [facility] Basophils Auto (Bld) [#/Vol] Ordered By: Estela Varma on 09-02-2021 Basophils (Bld) [#/Vol] 0.0 10*3/uL 0.0-0.2 [facility] Basophils/100 WBC Auto (Bld) Ordered By: Estela Varma on 09-02-2021 Basophils/100 WBC (Bld) 0.7 % . [facility] Eosinophils Auto (Bld) [#/Vo l]Ordered By: Estela Varma on 09-02-2021 Eosinophils (Bld) [#/Vol] 0.2 10*3/uL 0.0-0.45 [facility] Eosinophils/100 WBC Auto (Bl d)Ordered By: Estela Varma on 09-02-2021 Eosinophils/100 WBC (Bld) 4.2 % . [facility] Erythrocyte distribution wid th Auto (RBC) [Ratio]Ordered By: Estela Varma on 09-02-2021 Erythrocyte distribution width (RBC) [Ratio] 15.7 % 12.0-14.8 [facility] Globulin Calc (S) [Mass/Vol] Ordered By: Estela Varma on 09-02-2021 Globulin (S) [Mass/Vol] 3.4 g/dL [facility] Glucose Glucometer (BldC) [M ass/Vol]Ordered By: George Ash on 09-02-2021 Glucose [Mass/Vol] 82 mg/dL [facility] Comment on above: Random Glucose Refer ence Range is dependent on time and content of last meal. Glucose of more than 200 mg/dL in a nonstressed, ambulatory subject supports the diagnosis of Diabetes Mellitus. Hematocrit Auto (Bld) [Volum e fraction]Ordered By: Estela Varma on 09-02-2021 Hematocrit (Bld) [Volume fraction] 42.4 % 38.8-50.0 [facility] Hemoglobin [Mass/volume] in BloodOrdered By: Estela Varma on 09-02-2021 Hemoglobin (Bld) [Mass/Vol] 14.6 g/dL 13.0-17.0 [facility] - Hematology and Cell countsOrdered By: Estela Varma on 09-02-2021 Nucleated RBC/100 WBC (Bld) [Ratio] 0.1 % 0-0.5 [facility] Leukocytes [#/volume] in Blo od by Automated countOrdered By: Estela Varma on 09-02-2021 WBC (Bld) [#/Vol] 5.0 10*3/uL 4.5-11.0 [facility] Lymphocytes Auto (Bld) [#/Vo l]Ordered By: Estela Varma on 09-02-2021 Lymphocytes (Bld) [#/Vol] 0.9 10*3/uL 1.00-4.8 [facility] Lymphocytes/100 WBC Auto (Bl d)Ordered By: Estela Varma on 09-02-2021 Lymphocytes/100 WBC (Bld) 18.2 % . [facility] MCH Auto (RBC) [Entitic mass ]Ordered By: Estela Varma on 09-02-2021 MCH (RBC) [Entitic mass] 32.6 pg 27.5-35.2 [facility] MCHC Auto (RBC) [Mass/Vol]Or dered By: Estela Varma on 09-02-2021 MCHC (RBC) [Mass/Vol] 34.4 g/dL 32.5-35.6 [facility] MCV Auto (RBC) [Entitic vol] Ordered By: Estela Varma on 09-02-2021 MCV (RBC) [Entitic vol] 94.8 fL 83.5-101 [facility] Monocytes Auto (Bld) [#/Vol] Ordered By: Estela Varma on 09-02-2021 Monocytes (Bld) [#/Vol] 0.4 10*3/uL 0.0-0.8 [facility] Monocytes/100 WBC Auto (Bld) Ordered By: Estela Varma on 09-02-2021 Monocytes/100 WBC (Bld) 7.9 % . [facility] Neutrophils Auto (Bld) [#/Vo l]Ordered By: Estela Varma on 09-02-2021 Neutrophils (Bld) [#/Vol] 3.5 10*3/uL 1.8-7.7 [facility] Neutrophils/100 WBC Auto (Bl d)Ordered By: Estela Varma on 09-02-2021 Neutrophils/100 WBC (Bld) 69.0 % . [facility] Platelet mean volume Auto (B ld) [Entitic vol]Ordered By: Estela Varma on 09-02-2021 Platelet mean volume (Bld) [Entitic vol] 7.0 fL 6.6-10.1 [facility] Platelets Auto (Bld) [#/Vol] Ordered By: Estela Varma on 09-02-2021 Platelets (Bld) [#/Vol] 186 10*3/uL 150-450 [facility] Protein [Mass/volume] in Ser um or PlasmaOrdered By: Estela Varma on 09-02-2021 Protein [Mass/Vol] 7.2 g/dL 6.1-7.9 [facility] RBC Auto (Bld) [#/Vol]Ordere d By: Estela Varma on 09-02-2021 RBC (Bld) [#/Vol] 4.48 10*6/uL 3.90-5.60 [facility] Serum or plasma alanine glynn otransferase measurement without P-5'-P (enzymatic activiOrdered By: Estela Varma on 09-02-2021 ALT No additional P-5'-P [Catalytic activity/Vol] 13 U/L 10-60 [facility] Serum or plasma albumin/glob ulin mass ratioOrdered By: Estela Varma on 09-02-2021 Albumin/Globulin [Mass ratio] 1.1 {ratio} [facility] Serum or plasma alkaline abhijit sphatase measurement (enzymatic activity/volume)Ordered By: Estela Varma on 09-02-2021 ALP [Catalytic activity/Vol] 130 U/L 32-92 [facility] Serum or plasma aspartate am inotransferase measurement (enzymatic activity/volume)Ordered By: Estela Varma on 09-02-2021 AST [Catalytic activity/Vol] 18 U/L 10-42 [facility] Serum or plasma calcium ledy urement (mass/volume)Ordered By: Estela Varma on 09-02-2021 Calcium [Mass/Vol] 9.0 mg/dL 8.2-10.2 [facility] Serum or plasma carcinoembry onic antigen measurement (mass/volume)Ordered By: Estela Varma on 09-02-2021 Carcinoembryonic Ag [Mass/Vol] 11.4 ng/mL 0.0-3.0 [facility] Serum or plasma chloride carlyn surement (moles/volume)Ordered By: Estela Varma on 09-02-2021 Chloride [Moles/Vol] 100 mmol/L 95-114 [facility] Serum or plasma glucose ledy urement (mass/volume)Ordered By: Estela Varma on 09-02-2021 Glucose [Mass/Vol] 78 mg/dL 70-100 [facility] Comment on above: ADA recommended refe rence rangeRandom Glucose Reference Range is dependent on time and content of last meal. Glucose of more than 200 mg/dL in a nonstressed, ambulatory subject supports the diagnosis of Diabetes Mellitus. Serum or plasma potassium me asurement (moles/volume)Ordered By: Estela Varma on 09-02-2021 Potassium [Moles/Vol] 4.3 mmol/L 3.5-5.1 [facility] Serum or plasma sodium measu rement (moles/volume)Ordered By: Estela Varma on 09-02-2021 Sodium [Moles/Vol] 133 mmol/L 136-146 [facility] Serum or plasma total biliru bin measurement (mass/volume)Ordered By: Estela Varma on 09-02-2021 Bilirubin [Mass/Vol] 0.6 mg/dL 0.3-1.2 [facility] Serum or plasma total carbon dioxide measurement (moles/volume)Ordered By: Estela Varma on 09-02-2021 CO2 [Moles/Vol] 23.9 mmol/L 22.0-30.0 [facility] TSH DL <= 0.005 mIU/L QnOrde red By: George Ash on 01-31-2021 TSH Qn 1.65 m[IU]/L 0.45-5.33 [facility] Lipid Panel Fastingon 2020 Cholesterol [Mass/Vol] 145 mg/dL Normal 0-199 [facility] Comment on above: Result Comment: ATP III Cholesterol classification is Desirable. Performed By: #### L IPDF #### [facility] [address] [facility] [address] HDL Cholesterol Fasting 49 mg/dL Normal 40-59 [facility] Comment on above: Result Comment: ATP [...] CHD Performed By: #### L IPDF #### [facility] [address] [place] [address] LDL Cholesterol (Calculated) Fasting 76 mg/dL Normal 0-129 [facility] Comment on above: Result Comment: ATP III LDL Classification is Optimal. Performed By: #### L IPDF #### [facility] [address] [place] [address] Triglycerides Fasting 98 mg/dL Normal 0-150 [facility] Comment on above: Result Comment: ATP III Triglycerides Classification is Normal. Performed By: #### L IPDF #### [facility] [address] [place] [address] Vitamin B12 and Folateon Cobalamin (Vitamin B12) [Mass/Vol] 417 pg/mL Normal 232-1245 [facility] Comment on above: Performed By: #### B 12FO #### [facility] [address] [place] [address] Folate 13.4 ng/mL Normal 7.3-26.1 [facility] Comment on above: Result Comment: As o f 15, the methodology has changed. Results from this methodology should not be compared with results from previous methodology. Performed By: #### B 12FO #### [facility] [address] [place] [address] Vitamin Don 08-20-2020 Vitamin D 33.1 ng/mL Normal 30.0-100.0 [facility] Comment on above: Result Comment: (30- 100 ng/mL) Optimum Level This assay accurately quantifies the sum of vitamin D3, 25-Hydroxy and vitamin D2, 25-Hyroxy. Performed By: #### V ITD #### [facility] [address] [place] [address] Thyroxine (T4) free [Mass/vo lume] in Serum or Plasmaon 08-16-2020 Free T4 [Mass/Vol] 0.79 ng/dL 0.61-1.12 [facility] Lipid Profileon 08-06-2020 Cholesterol [Mass/Vol] 132 mg/dL Normal <200 [facility] Comment on above: Result Comment: Cholesterol Guidelines: <200 Desirable 200-240 Borderline >240 Undesirable Performed By: #### L IPR #### [facility] [employer] [address] [place] [id number] Pigment Supplier: Joe Todd MD Cholesterol in HDL [Mass/Vol] 41 mg/dL Normal >40 [facility] Comment on above: Result Comment: HDL Guidelines: <40 Undesirable 40-59 Borderline >59 Desirable Performed By: #### L IPR #### [address] [address] Pigment Supplier: Joe Todd MD Cholesterol in LDL [Mass/Vol] 72 mg/dL Normal 0-130 [facility] Comment on above: Result Comment: LDL Guidelines: <100 Desirable 100-129 Near to/above Desirable 130-159 Borderline >159 Undesirable Direct (measured) LDL and calculated LDL are not interchangeable tests. Performed By: #### L IPR #### [address] [address] Pigment Supplier: Joe Todd MD Cholesterol.total/Cho lesterol in HDL [Mass ratio] 3.2 {ratio} Normal <5 [facility] Comment on above: Performed By: #### L IPR #### [address] [address] Pigment Supplier: Joe Todd MD Triglyceride [Mass/Vol] 93 mg/dL Normal <150 [facility] Comment on above: Result Comment: Triglyceride Guidelines: <150 Desirable 150-199 Borderline 200-499 High >499 Very high Based on AHA Guidelines for fasting triglyceride, February 2012. Performed By: #### L IPR #### [address] [address] Pigment Supplier: Joe Todd MD Cholesterol in VLDL [Mass/Vol] NOT REPORTED Normal 1-30 [facility] Comment on above: Performed By: #### L IPR #### [address] [address] Pigment Supplier: Joe Todd MD Direct bilirubin measurement on 07-05-2020 Bilirubin.direct [Mass/Vol] 0.1 mg/dL 0.0-0.4 [facility] Serum or plasma non-glucuron idated bilirubin measurement (mass/volume)on 07-05-2020 Bilirubin.indirect [Mass/Vol] 0.8 mg/dL [facility] Laboratory - Hematology and Cell countson 05-24-2020 WBC (Bld) [#/Vol] 4.9 10*3/uL 4.5-11.0 [facility] Blood anisocytosis detection on 03-08-2020 Anisocytosis Ql (Bld) Slight [facility] [facility] No Panel Informationon 03-08 Platelet Estimate Normal Normal [facility] Platelet Morphology Comment Normal Normal [facility] RBC morphologyon 03-08-2020 RBC morphology finding Nom (Bld) N/A [facility] CARDIAC STRESS/REST (DILAN CARDIAL PERFUSION/MIBI)on 03-03-2020 [facility] CARDIAC STRESS/REST (MYOCARDIAL PERFUSION/MIBI) Patient Name: KIRILL ECHOLS STUDY: MYOCARDIAL PERFUSION STRESS TEST WITH LEXISCAN Performing facility: [facility], \[address] [place] [address], [facility] [address], \[place] [id number] [facility] Provider: Ema Oliveira DO, FACC PCP: Dr. Danni Andrea Supervising provider: Tejal King MD, FACC INDICATION: Chest Pain; HISTORY: Gender: M; Age: 54 y/o ; Height: 182.88 cm; Weight: 71.4902843 kg. HTN; Chest Pain; COPD; Quit smoking in 2020 years ago. COMPARISON: No comparison. ACCESSION NUMBER(S): [id number]; [id number]; [id number] ORDERING CLINICIAN: LUKAS OLIVEIRA TECHNIQUE: ONE DAY [...] comparison. Electronically signed by: TEJAL KING MD [facility] CARDIAC STRESS/REST INJE CTIONon 03-03-2020 [facility] CARDIAC STRESS/REST INJECTION Patient Name: KIRILL ECHOLS STUDY: MYOCARDIAL PERFUSION STRESS TEST WITH LEXISCAN Performing facility: [facility], \[address] [facility], [address], \[address] Provider: Ema Oliveira DO, [facility] PCP: Dr. Danni Andrea Supervising provider: Tejal King MD, [facility] INDICATION: Chest Pain; HISTORY: Gender: M; Age: 54 y/o ; Height: 182.88 cm; Weight: 71.9448913 kg. HTN; Chest Pain; COPD; Quit smoking in 2020 years ago. COMPARISON: No comparison. ACCESSION NUMBER(S): [id number]; [id number]; [id number] ORDERING CLINICIAN: LUKAS OLIVEIRA TECHNIQUE: ONE DAY [...] comparison. Electronically signed by: TEJAL KING MD [facility] PART 2 STRESS OR REST (N O CHARGE)on 03-03-2020 [facility] PART 2 STRESS OR REST (NO CHARGE) Patient Name: KIRILL ECHOLS STUDY: MYOCARDIAL PERFUSION STRESS TEST WITH LEXISCAN Performing facility: [facility], \[address], [address], \[address] Provider: Ema Oliveira DO, [facility] PCP: Dr. Danni Andrea Supervising provider: Tejal King MD, [facility] INDICATION: Chest Pain; HISTORY: Gender: M; Age: 54 y/o ; Height: 182.88 cm; Weight: 71.8993446 kg. HTN; Chest Pain; COPD; Quit smoking in 2020 years ago. COMPARISON: No comparison. ACCESSION NUMBER(S): [id number]; [id number]; [id number] ORDERING CLINICIAN: LUKAS OLIVEIRA TECHNIQUE: ONE DAY [...] Electronically signed by: TEJAL KING MD Normal [facility] No Panel Informationon 03-02 Schistocytes Rare [facility] Target cellson 03-02-2020 Target cells LM Ql (Bld) Slight [facility] Basophil percentageon 2019 Eosinophils/100 WBC (Bld) 1 % 1-3 [facility] Blood polychromasia detectio n by light microscopyon 02-24-2020 Polychromasia LM Ql (Bld) Slight [facility] Laboratory - Hematology and Cell countson 02-24-2020 Band form neutrophils/100 WBC (Bld) 13 % 0-5 [facility] Lymphocytes/100 WBC Auto (Bl d)on 02-24-2020 Lymphocytes/100 WBC (Bld) 9 % 18-42 [facility] Monocyte %on 02-24-2020 Monocytes/100 WBC (Bld) 1 % 1-3 [facility] Monocytes/100 WBC Manual cnt (Bld)on 02-24-2020 Monocytes/100 WBC (Bld) 16 % 2-11 [facility] No Panel Informationon 02-23 Dohle Bodies Moderate [facility] Poikilocytosis Slight [facility] Ovalocyte detectionon 2019 Ovalocytes LM Ql (Bld) Slight [facility] Segmented neutrophils/100 WB C Manual cnt (Bld)on 02-24-2020 Segmented neutrophils/100 WBC (Bld) 61 % 50-70 [facility] Hypochromia detectionon 01-13 Hypochromia Ql (Bld) Slight [facility] Macrocytes detectionon 01-19 Macrocytes Ql (Bld) Slight [facility] No Panel Informationon 01-19 Smudge Cells Few [facility] Red blood cell stomatocyte d etectionon 12-09-2019 Stomatocytes LM Ql (Bld) Slight [facility] Respiratory specimen 2019 no mathieu coronavirus RNA detection by probe and target amplifion 11-21-2019 SARS-CoV-2 (COVID-19) RNA DEANA+probe Ql (Resp) Not detected Not Detected [facility] Comment on above: This test was develo ped and its performance characteristicsdetermined by [employer]. This test has not beenFDA cleared or [...] (not detected) result in this assay.Performed at: [facility] [facility], [place], [place] [address] Director: Antonio Chaney MD, Phone: [phone] Basophils/100 WBC Auto (Bld) on 11-18-2019 Basophils/100 WBC (Bld) 1 % 0-2 [facility] Amylaseon 04-28-2018 Amylase enzyme act/vol 130 U/L High 30-110 [facility] Comment on above: Performed By: #### C BCDIF, PT, GBCHEM, GBTSH, LIPA, MG, GBHCV, HAVIGM, HBCAB, HBSAG, RPR ####[facility] [id number] [place], [place] [phone] GGTon 04-28-2018 Gamma glutamyl transferase [Enzymatic activity/volume] in Serum or Plasma 426 U/L High 15-73 [facility] Comment on above: Performed By: #### C BCDIF, PT, GBCHEM, GBTSH, LIPA, MG, GBHCV, HAVIGM, HBCAB, HBSAG, RPR ####[facility] [id number] [place], [place] [phone] Hepatic Function Pnlon 04-28 Albumin mass conc 4.2 g/dL Normal 3.5-5.0 [facility] Comment on above: Performed By: #### C BCDIF, PT, GBCHEM, GBTSH, LIPA, MG, GBHCV, HAVIGM, HBCAB, HBSAG, RPR ####[facility] [id number] [place], [place] [phone] Alkaline Phos 96 U/L Normal 38-125 [facility] Comment on above: Performed By: #### C BCDIF, PT, GBCHEM, GBTSH, LIPA, MG, GBHCV, HAVIGM, HBCAB, HBSAG, RPR ####[facility] [id number] [place], [place] [phone] ALT enzyme act/vol 60 U/L Normal 21-72 [facility] Comment on above: Performed By: #### C BCDIF, PT, GBCHEM, GBTSH, LIPA, MG, GBHCV, HAVIGM, HBCAB, HBSAG, RPR ####[facility] [id number] [facility] [place] [phone] AST enzyme act/vol 65 U/L High 17-59 [facility] Comment on above: Performed By: #### C BCDIF, PT, GBCHEM, GBTSH, LIPA, MG, GBHCV, HAVIGM, HBCAB, HBSAG, RPR ####[facility] Clinical [id number] [facility] [place] [phone] Bilirubin Ql (U) 0.3 mg/dL Normal 0.2-1.3 [facility] Comment on above: Performed By: #### C BCDIF, PT, GBCHEM, GBTSH, LIPA, MG, GBHCV, HAVIGM, HBCAB, HBSAG, RPR ####[facility] Clinical [id number] [facility] [place], [place] [phone] Bilirubin.direct mass conc 0.2 mg/dL Normal 0.0-0.4 [facility] Comment on above: Performed By: #### C BCDIF, PT, GBCHEM, GBTSH, LIPA, MG, GBHCV, HAVIGM, HBCAB, HBSAG, RPR ####[facility] Clinical [id number] [place], [place] [phone] Protein mass conc 7.3 g/dL Normal 6.2-8.2 [facility] Comment on above: Performed By: #### C BCDIF, PT, GBCHEM, GBTSH, LIPA, MG, GBHCV, HAVIGM, HBCAB, HBSAG, RPR ####[facility] [id number] [place], [place] [phone] Lipaseon 04-28-2018 Lipase enzyme act/vol 941 U/L High 23-300 [facility] Comment on above: Performed By: #### C BCDIF, PT, GBCHEM, GBTSH, LIPA, MG, GBHCV, HAVIGM, HBCAB, HBSAG, RPR ####[facility] Clinical [id number] [facility] [place] [phone] Phenobarbitalon 04-26-2018 Phenobarbital mass conc ug/mL Low 15.0-40.0 [facility] Comment on above: Performed By: #### C BCDIF, PT, GBCHEM, GBTSH, LIPA, MG, GBHCV, HAVIGM, HBCAB, HBSAG, RPR ####[facility] [id number] [facility], [place] [phone] RPRon 04-25-2018 Reagin Ab RPR Ql (S) Nonreactive Normal Nonreactive As [facility] Comment on above: Performed By: #### C BCDIF, PT, GBCHEM, GBTSH, LIPA, MG, GBHCV, HAVIGM, HBCAB, HBSAG, RPR ####[facility] [id number] [facility], [place] [phone] Urinalysison 04-25-2018 Bilirubin Negative Normal Negative [facility] Comment on above: Performed By: #### C BCDIF, PT, GBCHEM, GBTSH, LIPA, MG, GBHCV, HAVIGM, HBCAB, HBSAG, RPR ####[facility] [id number] [facility] [place], [place] [phone] Cast SEE NOTES Normal 0 [facility] Comment on above: Result Comment: >20H yaline Cast Performed By: #### C BCDIF, PT, GBCHEM, GBTSH, LIPA, MG, GBHCV, HAVIGM, HBCAB, HBSAG, RPR ####[facility] [id number] [facility] [place], [place] [phone] Clarity Nom (U) Cloudy Critically abnormal Clear [facility] Comment on above: Performed By: #### C BCDIF, PT, GBCHEM, GBTSH, LIPA, MG, GBHCV, HAVIGM, HBCAB, HBSAG, RPR ####[facility] [id number] [facility], [place] [phone] Color Nom (U) Taylor Critically abnormal Yellow [facility] Comment on above: Performed By: #### C BCDIF, PT, GBCHEM, GBTSH, LIPA, MG, GBHCV, HAVIGM, HBCAB, HBSAG, RPR ####[facility] Clinical [id number] [facility] [place] [phone] Crystals SEE NOTES Normal 0 [facility] Comment on above: Result Comment: FewA morphous Performed By: #### C BCDIF, PT, GBCHEM, GBTSH, LIPA, MG, GBHCV, HAVIGM, HBCAB, HBSAG, RPR ####[facility] Clinical [id number] [facility] [place], [place] [phone] Epithelial Cells Few Normal [facility] Comment on above: Result Comment: Squa mous Epithelial Cells Performed By: #### C BCDIF, PT, GBCHEM, GBTSH, LIPA, MG, GBHCV, HAVIGM, HBCAB, HBSAG, RPR ####[facility] Clinical [id number] [facility] [place], [place] [phone] Glucose Negative Normal Negative [facility] Comment on above: Performed By: #### C BCDIF, PT, GBCHEM, GBTSH, LIPA, MG, GBHCV, HAVIGM, HBCAB, HBSAG, RPR ####[facility] Clinical [id number] [place], [place] [phone] Hemoglobin/Blood Negative Normal Negative [facility] Comment on above: Performed By: #### C BCDIF, PT, GBCHEM, GBTSH, LIPA, MG, GBHCV, HAVIGM, HBCAB, HBSAG, RPR ####[facility] Clinical [id number] [facility] [place], [place] [phone] INR Coag RelTime (Bld) 0-3 Normal 0-3 [facility] Comment on above: Performed By: #### C BCDIF, PT, GBCHEM, GBTSH, LIPA, MG, GBHCV, HAVIGM, HBCAB, HBSAG, RPR ####[facility] Clinical [id number] [facility], [place] [phone] Ketone Trace Critically abnormal Negative [facility] Comment on above: Performed By: #### C BCDIF, PT, GBCHEM, GBTSH, LIPA, MG, GBHCV, HAVIGM, HBCAB, HBSAG, RPR ####[facility] Clinical [id number] [facility] [place] [phone] Leukest Negative Normal Negative [facility] Comment on above: Performed By: #### C BCDIF, PT, GBCHEM, GBTSH, LIPA, MG, GBHCV, HAVIGM, HBCAB, HBSAG, RPR ####[facility] Clinical [id number] [facility] [place], [place] [phone] Nitrites Negative Normal Negative [facility] Comment on above: Performed By: #### C BCDIF, PT, GBCHEM, GBTSH, LIPA, MG, GBHCV, HAVIGM, HBCAB, HBSAG, RPR ####[facility] Clinical [id number] [place], [place] [phone] pH Test strip (U) 5.0 [pH] Normal 5-7 [facility] Comment on above: Performed By: #### C BCDIF, PT, GBCHEM, GBTSH, LIPA, MG, GBHCV, HAVIGM, HBCAB, HBSAG, RPR ####[facility] Clinical [id number] [facility] [place], [place] [phone] Protein mass conc 100 mg/dl Critically abnormal Negative [facility] Comment on above: Performed By: #### C BCDIF, PT, GBCHEM, GBTSH, LIPA, MG, GBHCV, HAVIGM, HBCAB, HBSAG, RPR ####[facility] Clinical [id number] [facility], [place] [phone] Urine Alpesh Comment Many Normal [facility] Comment on above: Result Comment: MUCO US Performed By: #### C BCDIF, PT, GBCHEM, GBTSH, LIPA, MG, GBHCV, HAVIGM, HBCAB, HBSAG, RPR ####[facility] Clinical [id number] [facility] [place], [place] [phone] Urine Spec [place] 1.025 Normal 1.005-1.030 [facility] Comment on above: Performed By: #### C BCDIF, PT, GBCHEM, GBTSH, LIPA, MG, GBHCV, HAVIGM, HBCAB, HBSAG, RPR ####[facility] Clinical [id number] [place], [place] [phone] Urobilinogen 2.0 mg/dl High 0.0-1.0 [facility] Comment on above: Performed By: #### C BCDIF, PT, GBCHEM, GBTSH, LIPA, MG, GBHCV, HAVIGM, HBCAB, HBSAG, RPR ####[facility] Clinical [id number] [place], [place] [phone] WBC 0-5 Normal 0-5 [facility] Comment on above: Performed By: #### C BCDIF, PT, GBCHEM, GBTSH, LIPA, MG, GBHCV, HAVIGM, HBCAB, HBSAG, RPR ####[facility] Clinical [id number] [place], [place] [phone] CBCDIFon 04-24-2018 Abs Baso 0.02 k/uL Normal 0-0.2 [facility] Comment on above: Performed By: #### C BCDIF, PT, GBCHEM, GBTSH, LIPA, MG, GBHCV, HAVIGM, HBCAB, HBSAG, RPR ####[facility] Clinical [id number] [place], [place] [phone] Abs Hand 1.23 k/uL High 0-0.8 [facility] Comment on above: Performed By: #### C BCDIF, PT, GBCHEM, GBTSH, LIPA, MG, GBHCV, HAVIGM, HBCAB, HBSAG, RPR ####[facility] Clinical [id number] [place], [place] [phone] Abs Neut 7.41 k/uL Normal 1.8-7.7 [facility] Comment on above: Performed By: #### C BCDIF, PT, GBCHEM, GBTSH, LIPA, MG, GBHCV, HAVIGM, HBCAB, HBSAG, RPR ####[facility] [id number] [place], [place] [phone] Basophils/100 WBC Auto (Bld) 0.2 % Normal 0-1 [facility] Comment on above: Performed By: #### C BCDIF, PT, GBCHEM, GBTSH, LIPA, MG, GBHCV, HAVIGM, HBCAB, HBSAG, RPR ####[facility] [id number] [place], [place] [phone] Eosinophils Auto #/vol (Bld) 0.38 10*3/uL Normal 0-0.4 [facility] Comment on above: Performed By: #### C BCDIF, PT, GBCHEM, GBTSH, LIPA, MG, GBHCV, HAVIGM, HBCAB, HBSAG, RPR ####[facility] [id number] [place], [place] [phone] Eosinophils/100 WBC Auto (Bld) 3.3 % Normal 0-4 [facility] Comment on above: Performed By: #### C BCDIF, PT, GBCHEM, GBTSH, LIPA, MG, GBHCV, HAVIGM, HBCAB, HBSAG, RPR ####[facility] [id number] [place], [place] [phone] Erythrocyte distribution width Auto Ratio (RBC) 14.6 % High 11.5-14.5 [facility] Comment on above: Performed By: #### C BCDIF, PT, GBCHEM, GBTSH, LIPA, MG, GBHCV, HAVIGM, HBCAB, HBSAG, RPR ####[facility] [id number] [place], [place] [phone] Hematocrit Auto Volume Fraction (Bld) 46.2 % Normal 41.0-53.0 [facility] Comment on above: Performed By: #### C BCDIF, PT, GBCHEM, GBTSH, LIPA, MG, GBHCV, HAVIGM, HBCAB, HBSAG, RPR ####[facility] Clinical [id number] [place], [place] [phone] Hemoglobin mass conc (Bld) 16.2 g/dL Normal 13.5-17.5 [facility] Comment on above: Performed By: #### C BCDIF, PT, GBCHEM, GBTSH, LIPA, MG, GBHCV, HAVIGM, HBCAB, HBSAG, RPR ####[facility] Clinical [id number] [facility] [place], [place] [phone] Immature Gran 0.30 % Normal 0-1.9 [facility] Comment on above: Performed By: #### C BCDIF, PT, GBCHEM, GBTSH, LIPA, MG, GBHCV, HAVIGM, HBCAB, HBSAG, RPR ####[facility] [id number] [place], [place] [phone] Lymphocytes Auto #/vol (Bld) 2.56 10*3/uL Normal 1.0-4.0 [facility] Comment on above: Performed By: #### C BCDIF, PT, GBCHEM, GBTSH, LIPA, MG, GBHCV, HAVIGM, HBCAB, HBSAG, RPR ####[facility] [id number] [place], [place] [phone] Lymphocytes/100 WBC Auto (Bld) 22.0 % Normal 22-44 [facility] Comment on above: Performed By: #### C BCDIF, PT, GBCHEM, GBTSH, LIPA, MG, GBHCV, HAVIGM, HBCAB, HBSAG, RPR ####[facility] Clinical [id number] [place], [place] [phone] MCH Auto Entitic mass (RBC) 31.6 pG Normal 26-34 [facility] Comment on above: Performed By: #### C BCDIF, PT, GBCHEM, GBTSH, LIPA, MG, GBHCV, HAVIGM, HBCAB, HBSAG, RPR ####[facility] Clinical [id number] [place], [place] [phone] MCHC Auto mass conc (RBC) 35.1 g/dL Normal 31-37 [facility] Comment on above: Performed By: #### C BCDIF, PT, GBCHEM, GBTSH, LIPA, MG, GBHCV, HAVIGM, HBCAB, HBSAG, RPR ####[facility] Clinical [id number] [facility] [place], [place] [phone] MCV Auto Entitic volume (RBC) 90.1 fL Normal 80-100 [facility] Comment on above: Performed By: #### C BCDIF, PT, GBCHEM, GBTSH, LIPA, MG, GBHCV, HAVIGM, HBCAB, HBSAG, RPR ####[facility] Clinical [id number] [place], [place] [phone] Monocytes/100 WBC Auto (Bld) 10.6 % Normal 4-12 [facility] Comment on above: Performed By: #### C BCDIF, PT, GBCHEM, GBTSH, LIPA, MG, GBHCV, HAVIGM, HBCAB, HBSAG, RPR ####[facility] Clinical [id number] [place], [place] [phone] Neutrophils/100 WBC Auto (Bld) 63.6 % Normal 40-70 [facility] Comment on above: Performed By: #### C BCDIF, PT, GBCHEM, GBTSH, LIPA, MG, GBHCV, HAVIGM, HBCAB, HBSAG, RPR ####[facility] Clinical [id number] [place], [place] [phone] NRBCs 0 /100 WBC Normal 0-0.9 [facility] Comment on above: Performed By: #### C BCDIF, PT, GBCHEM, GBTSH, LIPA, MG, GBHCV, HAVIGM, HBCAB, HBSAG, RPR ####[facility] Clinical [id number] [place], [place] [phone] Platelets Auto #/vol (Bld) 188 10*3/uL Normal 150-450 [facility] Comment on above: Performed By: #### C BCDIF, PT, GBCHEM, GBTSH, LIPA, MG, GBHCV, HAVIGM, HBCAB, HBSAG, RPR ####[facility] Clinical [id number] [facility] [place], [place] [phone] RBC Auto #/vol (Bld) 5.13 10*6/uL Normal 4.50-5.90 [facility] Comment on above: Performed By: #### C BCDIF, PT, GBCHEM, GBTSH, LIPA, MG, GBHCV, HAVIGM, HBCAB, HBSAG, RPR ####[facility] Clinical [id number] [facility] [place], [place] [phone] WBC Auto #/vol (Bld) 11.63 10*3/uL High 4.5-11.0 [facility] Comment on above: Performed By: #### C BCDIF, PT, GBCHEM, GBTSH, LIPA, MG, GBHCV, HAVIGM, HBCAB, HBSAG, RPR ####[facility] [id number] [facility] [place], [place] [phone] [facility] 2017 Albumin mass conc 5.0 g/dL Normal 3.5-5.0 [facility] Comment on above: Performed By: #### C BCDIF, PT, GBCHEM, GBTSH, LIPA, MG, GBHCV, HAVIGM, HBCAB, HBSAG, RPR ####[facility] Clinical [id number] [facility] [place], [place] [phone] Alkaline Phos 137 U/L High 38-125 [facility] Comment on above: Performed By: #### C BCDIF, PT, GBCHEM, GBTSH, LIPA, MG, GBHCV, HAVIGM, HBCAB, HBSAG, RPR ####[facility] Clinical [id number] [facility] [place], [place] [phone] ALT enzyme act/vol 54 U/L Normal 21-72 [facility] Comment on above: Performed By: #### C BCDIF, PT, GBCHEM, GBTSH, LIPA, MG, GBHCV, HAVIGM, HBCAB, HBSAG, RPR ####[facility] Clinical [id number] [facility] [place], [place] [phone] Amylase enzyme act/vol 156 U/L High 30-110 [facility] Comment on above: Performed By: #### C BCDIF, PT, GBCHEM, GBTSH, LIPA, MG, GBHCV, HAVIGM, HBCAB, HBSAG, RPR ####[facility] Clinical [id number] [facility] [place], [place] [phone] Anion gap 3 molar conc 18 mmol/L High 0-15 [facility] Comment on above: Performed By: #### C BCDIF, PT, GBCHEM, GBTSH, LIPA, MG, GBHCV, HAVIGM, HBCAB, HBSAG, RPR ####[facility] Clinical [id number] [place], [place] [phone] AST enzyme act/vol 102 U/L High 17-59 [facility] Comment on above: Performed By: #### C BCDIF, PT, GBCHEM, GBTSH, LIPA, MG, GBHCV, HAVIGM, HBCAB, HBSAG, RPR ####[facility] Clinical [id number] [place], [place] [phone] Bilirubin Ql (U) 1.5 mg/dL High 0.2-1.3 [facility] Comment on above: Performed By: #### C BCDIF, PT, GBCHEM, GBTSH, LIPA, MG, GBHCV, HAVIGM, HBCAB, HBSAG, RPR ####[facility] Clinical [id number] [place], [place] [phone] Calcium mass conc 10.0 mg/dL Normal 8.4-10.2 [facility] Comment on above: Performed By: #### C BCDIF, PT, GBCHEM, GBTSH, LIPA, MG, GBHCV, HAVIGM, HBCAB, HBSAG, RPR ####[facility] Clinical [id number] [facility] [place] [phone] Chloride molar conc 91 mmol/L Low 98-107 [facility] Comment on above: Performed By: #### C BCDIF, PT, GBCHEM, GBTSH, LIPA, MG, GBHCV, HAVIGM, HBCAB, HBSAG, RPR ####[facility] Clinical [id number] [facility] [place] [phone] Cholesterol mass conc 155 mg/dL Normal 100-199 [facility] Comment on above: Performed By: #### C BCDIF, PT, GBCHEM, GBTSH, LIPA, MG, GBHCV, HAVIGM, HBCAB, HBSAG, RPR ####[facility] Clinical [id number] [facility] [place], [place] [phone] CO2 molar conc 27 mmol/L Normal 22-30 [facility] Comment on above: Performed By: #### C BCDIF, PT, GBCHEM, GBTSH, LIPA, MG, GBHCV, HAVIGM, HBCAB, HBSAG, RPR ####[facility] Clinical [id number] [facility] [place], [place] [phone] Creatinine mass conc 1.47 mg/dL High 0.66-1.25 [facility] Comment on above: Performed By: #### C BCDIF, PT, GBCHEM, GBTSH, LIPA, MG, GBHCV, HAVIGM, HBCAB, HBSAG, RPR ####[facility] Clinical [id number] [facility] [place] [phone] eGFR Amer >60 Normal >60 [facility] Comment on above: Result Comment: MDRD calculation used for eGFR results. Performed By: #### C BCDIF, PT, GBCHEM, GBTSH, LIPA, MG, GBHCV, HAVIGM, HBCAB, HBSAG, RPR ####[facility] Clinical [id number] [facility] [place] [phone] eGFR non Am 53 mL/min/1.73 2 Low >60 [facility] Comment on above: Performed By: #### C BCDIF, PT, GBCHEM, GBTSH, LIPA, MG, GBHCV, HAVIGM, HBCAB, HBSAG, RPR ####[facility] Clinical [id number] [place], [place] [phone] Gamma glutamyl transferase [Enzymatic activity/volume] in Serum or Plasma 602 U/L High 15-73 [facility] Comment on above: Performed By: #### C BCDIF, PT, GBCHEM, GBTSH, LIPA, MG, GBHCV, HAVIGM, HBCAB, HBSAG, RPR ####[facility] Clinical [id number] [place], [place] [phone] Glucose mass conc 98 mg/dL Normal 74-106 [facility] Comment on above: Performed By: #### C BCDIF, PT, GBCHEM, GBTSH, LIPA, MG, GBHCV, HAVIGM, HBCAB, HBSAG, RPR ####[facility] Clinical [id number] [place], [place] [phone] LDH 550 U/L Normal 318-618 [facility] Comment on above: Performed By: #### C BCDIF, PT, GBCHEM, GBTSH, LIPA, MG, GBHCV, HAVIGM, HBCAB, HBSAG, RPR ####[facility] Clinical [id number] [place], [place] [phone] Phosphate mass conc 3.9 mg/dL Normal 2.5-4.5 [facility] Comment on above: Performed By: #### C BCDIF, PT, GBCHEM, GBTSH, LIPA, MG, GBHCV, HAVIGM, HBCAB, HBSAG, RPR ####[facility] Clinical [id number] [place], [place] [phone] Potassium molar conc 3.7 mmol/L Normal 3.5-5.1 [facility] Comment on above: Performed By: #### C BCDIF, PT, GBCHEM, GBTSH, LIPA, MG, GBHCV, HAVIGM, HBCAB, HBSAG, RPR ####[facility] Clinical [id number] [facility] [place] [phone] Protein mass conc 8.7 g/dL High 6.2-8.2 [facility] Comment on above: Performed By: #### C BCDIF, PT, GBCHEM, GBTSH, LIPA, MG, GBHCV, HAVIGM, HBCAB, HBSAG, RPR ####[facility] Clinical [id number] [facility] [place], [place] [phone] Sodium molar conc 132 mmol/L Low 137-145 [facility] Comment on above: Performed By: #### C BCDIF, PT, GBCHEM, GBTSH, LIPA, MG, GBHCV, HAVIGM, HBCAB, HBSAG, RPR ####[facility] Clinical [id number] [facility] [place], [place] [phone] Triglyceride mass conc 160 mg/dL High 35-150 [facility] Comment on above: Performed By: #### C BCDIF, PT, GBCHEM, GBTSH, LIPA, MG, GBHCV, HAVIGM, HBCAB, HBSAG, RPR ####[facility] Clinical [id number] [facility] [place], [place] [phone] Urate mass conc 7.2 mg/dL Normal 3.5-8.5 [facility] Comment on above: Performed By: #### C BCDIF, PT, GBCHEM, GBTSH, LIPA, MG, GBHCV, HAVIGM, HBCAB, HBSAG, RPR ####[facility] Clinical [id number] [facility] [place], [place] [phone] Urea nitrogen mass conc 15 mg/dL Normal 9-20 [facility] Comment on above: Performed By: #### C BCDIF, PT, GBCHEM, GBTSH, LIPA, MG, GBHCV, HAVIGM, HBCAB, HBSAG, RPR ####[facility] Clinical [id number] [facility] [place] [phone] [facility] Hep C Abon 018 [facility] Hep C Ab Nonreactive Normal Nonreactive [facility] Comment on above: Performed By: #### C BCDIF, PT, GBCHEM, GBTSH, LIPA, MG, GBHCV, HAVIGM, HBCAB, HBSAG, RPR ####[facility] Clinical [id number] [facility] [place], [place] [phone] [facility] TSHon 04-24-2018 Thyrotropin Qn 3.280 uU/mL Normal 0.465-4.680 [facility] Comment on above: Performed By: #### C BCDIF, PT, GBCHEM, GBTSH, LIPA, MG, GBHCV, HAVIGM, HBCAB, HBSAG, RPR ####[facility] Clinical [id number] [place], [place] [phone] Hep A IgM Antibodyon 018 Hep A IgM Antibody Nonreactive Normal Nonreactive [facility] Comment on above: Performed By: #### C BCDIF, PT, GBCHEM, GBTSH, LIPA, MG, GBHCV, HAVIGM, HBCAB, HBSAG, RPR ####[facility] Clinical [id number] [place], [place] [phone] Hep B Core Total Abon 2017 Hep B Core Total Ab Nonreactive Normal Nonreactive [facility] Comment on above: Performed By: #### C BCDIF, PT, GBCHEM, GBTSH, LIPA, MG, GBHCV, HAVIGM, HBCAB, HBSAG, RPR ####[facility] [id number] [place], [place] [phone] Hep B Surf Antigenon 018 Hep B Surf Antigen Nonreactive Normal Nonreactive [facility] Comment on above: Performed By: #### C BCDIF, PT, GBCHEM, GBTSH, LIPA, MG, GBHCV, HAVIGM, HBCAB, HBSAG, RPR ####[facility] [id number] [facility], [place] [phone] Lipaseon 04-24-2018 Lipase enzyme act/vol 1540 U/L High 23-300 [facility] Comment on above: Performed By: #### C BCDIF, PT, GBCHEM, GBTSH, LIPA, MG, GBHCV, HAVIGM, HBCAB, HBSAG, RPR ####[facility] [id number] [place], [place] [phone] Magnesiumon 04-24-2018 Magnesium mass conc 2.0 mg/dL Normal 1.3-2.3 [facility] Comment on above: Performed By: #### C BCDIF, PT, GBCHEM, GBTSH, LIPA, MG, GBHCV, HAVIGM, HBCAB, HBSAG, RPR ####[facility] Clinical [id number] [place], [place] [phone] Protimeon 04-24-2018 INR Coag RelTime (Bld) 1.0 {INR} Normal 0.6-1.1 [facility] Comment on above: Result Comment: The [...] HAVIGM, HBCAB, HBSAG, RPR ####[facility] Clinical [id number] [place], [place] [phone] PT Sec 12.3 sec Normal 11.8-14.1 [facility] Comment on above: Performed By: #### C BCDIF, PT, GBCHEM, GBTSH, LIPA, MG, GBHCV, HAVIGM, HBCAB, HBSAG, RPR ####[facility] Clinical [id number] [place], [place] [phone] Vital Signs Date Time Vital Sign Value Performing Clinician Facility 06-17-2024 14:49-0500 Body height 182.9 cm Marilu Bonner [employer] Work Phone: [facility] 06-17-2024 14:49-0500 Body mass index (BMI) [Ratio] 20.7 kg/m2 Marilu Warchol [employer] Work Phone: [facility] 06-17-2024 14:49-0500 Body temperature 98.01 [degF] Marilu Warchol [employer] Work Phone: [facility] 06-17-2024 14:49-0500 Body weight 69.22 kg Marilu Warchol [employer] Work Phone: [facility] 06-17-2024 14:49-0500 Diastolic blood pressure 72 mm[Hg] Marilu Warchol [employer] Work Phone: [facility] 06-17-2024 14:49-0500 Heart rate 92 /min Marilu Warchol [employer] Work Phone: [facility] 06-17-2024 14:49-0500 SaO2% (BldA) [Mass fraction] 95 % Marilu Warchol [employer] Work Phone: [facility] 06-17-2024 14:49-0500 Systolic blood pressure 118 mm[Hg] Marilu Warchol [employer] Work Phone: [facility] 03-17-2024 13:54-0500 Body height 182.9 cm Marilu Warchol [employer] Work Phone: [facility] 03-17-2024 13:54-0500 Body mass index (BMI) [Ratio] 19.94 kg/m2 Marilu Warchol [employer] Work Phone: [facility] 03-17-2024 13:54-0500 Body temperature 98.01 [degF] Marilu Warchol [employer] Work Phone: [facility] 03-17-2024 13:54-0500 Body weight 66.68 kg Marilu Warchol [employer] Work Phone: [facility] 03-17-2024 13:54-0500 Diastolic blood pressure 88 mm[Hg] Marilu Warchol [employer] Work Phone: [facility] 03-17-2024 13:54-0500 Heart rate 60 /min Marilu Warchol [employer] Work Phone: [facility] 03-17-2024 13:54-0500 SaO2% (BldA) [Mass fraction] 99 % Marilu Warchol [employer] Work Phone: [facility] 03-17-2024 13:54-0500 Systolic blood pressure 118 mm[Hg] Marilu Warchol [employer] Work Phone: [facility] 02-18-2024 14:28-0400 Diastolic blood pressure 84 mm[Hg] MD Rylan Andrea Work Phone: [facility] 02-18-2024 14:28-0400 Heart rate 86 /min MD Rylan Andrea Work Phone: [facility] 02-18-2024 14:28-0400 Respiratory rate 16 /min MD Rylan Andrea Work Phone: [facility] 02-18-2024 14:28-0400 SaO2% (BldA) [Mass fraction] 100 % MD Rylan Andrea Work Phone: [facility] 02-18-2024 14:28-0400 Systolic blood pressure 124 mm[Hg] MD Rylan Andrea Work Phone: [facility] 02-18-2024 11:17-0400 Body height 182.88 cm MD Rylan Andrea Work Phone: [facility] 02-18-2024 11:17-0400 Body weight 62.59 kg MD Rylan Andrea Work Phone: [facility] 02-04-2024 13:42-0400 Body height 182.9 cm Marilu Sterlingchol [employer] Work Phone: [facility] 02-04-2024 13:42-0400 Body mass index (BMI) [Ratio] 19.23 kg/m2 Marilu Warchol [employer] Work Phone: [facility] 02-04-2024 13:42-0400 Body temperature 97.59 [degF] Marilu Warchol [employer] Work Phone: [facility] 02-04-2024 13:42-0400 Body weight 64.32 kg Marilu Warchol [employer] Work Phone: [facility] 02-04-2024 13:42-0400 Diastolic blood pressure 72 mm[Hg] Marilu Warchol [employer] Work Phone: [facility] 02-04-2024 13:42-0400 Heart rate 100 /min Marilu Warchol [employer] Work Phone: [facility] 02-04-2024 13:42-0400 SaO2% (BldA) [Mass fraction] 97 % Marilu Warchol [employer] Work Phone: [facility] 02-04-2024 13:42-0400 Systolic blood pressure 130 mm[Hg] Marilu Warchol [employer] Work Phone: [facility] 01-31-2024 13:36-0400 Body height 182.88 cm [facility] 01-31-2024 13:36-0400 Body mass index (BMI) [Ratio] 18.5 kg/m2 [facility] 01-31-2024 13:36-0400 Body weight 61.94 kg [facility] 01-31-2024 13:36-0400 Diastolic blood pressure 76 mm[Hg] [facility] 01-31-2024 13:36-0400 Heart rate 97 /min [facility] 01-31-2024 13:36-0400 Systolic blood pressure 115 mm[Hg] [facility] 01-21-2024 13:53-0400 Body height 182.9 cm Marilu Warchol [employer] Work Phone: [facility] 01-21-2024 13:53-0400 Body mass index (BMI) [Ratio] 18.85 kg/m2 Marilu Warchol [employer] Work Phone: [facility] 01-21-2024 13:53-0400 Body temperature 98.2 [degF] Marilu Warchol [employer] Work Phone: [facility] 01-21-2024 13:53-0400 Body weight 63.05 kg Marilu Warchol [employer] Work Phone: [facility] 01-21-2024 13:53-0400 Diastolic blood pressure 78 mm[Hg] Marilu Warchol [employer] Work Phone: [facility] 01-21-2024 13:53-0400 Heart rate 108 /min Marilu Warchol [employer] Work Phone: [facility] 01-21-2024 13:53-0400 SaO2% (BldA) [Mass fraction] 98 % Marilu Warchol [employer] Work Phone: [facility] 01-21-2024 13:53-0400 Systolic blood pressure 132 mm[Hg] Marilu Warchol [employer] Work Phone: [facility] 01-15-2024 13:54-0400 Body height 182.9 cm Marilu Warchol [employer] Work Phone: [facility] 01-15-2024 13:54-0400 Body mass index (BMI) [Ratio] 19.12 kg/m2 Marilu Warchol [employer] Work Phone: [facility] 01-15-2024 13:54-0400 Body temperature 96.3 [degF] Marilu Warchol [employer] Work Phone: [facility] 01-15-2024 13:54-0400 Body weight 63.96 kg Marilu Warchol [employer] Work Phone: [facility] 01-15-2024 13:54-0400 Diastolic blood pressure 74 mm[Hg] Marilu Warchol [employer] Work Phone: [facility] 01-15-2024 13:54-0400 Heart rate 99 /min Marilu Warchol [employer] Work Phone: [facility] 01-15-2024 13:54-0400 Respiratory rate 16 /min Marilu Warchol [employer] Work Phone: [facility] 01-15-2024 13:54-0400 SaO2% (BldA) [Mass fraction] 97 % Marilu Bonner [employer] Work Phone: [facility] 01-15-2024 13:54-0400 Systolic blood pressure 122 mm[Hg] Marilu Bonner [employer] Work Phone: [facility] 01-10-2024 14:14-0400 Body height 182.9 cm Ophelia Erika DO Work Phone: [facility] 01-10-2024 14:14-0400 Body mass index (BMI) [Ratio] 18.85 kg/m2 Ophelia Erika DO Work Phone: [facility] 01-10-2024 14:14-0400 Body weight 63.05 kg Ophelia Erika DO Work Phone: [facility] 01-10-2024 14:14-0400 Diastolic blood pressure 84 mm[Hg] Ophelia Erika DO Work Phone: [facility] 01-10-2024 14:14-0400 Heart rate 74 /min Ophelia Erika DO Work Phone: [facility] 01-10-2024 14:14-0400 SaO2% (BldA) [Mass fraction] 88 % Ophelia Erika DO Work Phone: [facility] 01-10-2024 14:14-0400 Systolic blood pressure 133 mm[Hg] Ophelia Erika DO Work Phone: [facility] 12-25-2023 13:00-0400 Body height 182.9 cm Rylan Andrea MD Work Phone: [facility] 12-25-2023 13:00-0400 Body mass index (BMI) [Ratio] 18.44 kg/m2 Rylan Andrea MD Work Phone: [facility] 12-25-2023 13:00-0400 Body temperature 97.2 [degF] Rylan Andrea MD Work Phone: [facility] 12-25-2023 13:00-0400 Body weight 61.69 kg Rylan Andrea MD Work Phone: [facility] 12-25-2023 13:00-0400 Diastolic blood pressure 82 mm[Hg] Rylan Andrea MD Work Phone: [facility] 12-25-2023 13:00-0400 Heart rate 116 /min Rylan Andrea MD Work Phone: [facility] 12-25-2023 13:00-0400 Respiratory rate 16 /min Rylan Andrea MD Work Phone: [facility] 12-25-2023 13:00-0400 SaO2% (BldA) [Mass fraction] 93 % Rylan Andrea MD Work Phone: [facility] 12-25-2023 13:00-0400 Systolic blood pressure 110 mm[Hg] Rylan Andrea MD Work Phone: [facility] 06-29-2023 10:54-0500 Body temperature 97.9 [degF] MD Rylan Andrea Work Phone: [facility] 06-29-2023 10:54-0500 Body weight 69.85 kg MD Rylan Andrea Work Phone: [facility] 06-29-2023 10:54-0500 Diastolic blood pressure 88 mm[Hg] MD Rylan Andrea Work Phone: [facility] 06-29-2023 10:54-0500 Heart rate 88 /min MD Rylan Andrea Work Phone: [facility] 06-29-2023 10:54-0500 Respiratory rate 20 /min MD Rylan Andrea Work Phone: [facility] 06-29-2023 10:54-0500 SaO2% (BldA) [Mass fraction] 97 % MD Rylan Andrea Work Phone: [facility] 06-29-2023 10:54-0500 Systolic blood pressure 140 mm[Hg] MD Rylan Andrea Work Phone: [facility] 12-25-2022 11:05-0400 Body temperature 97.7 [degF] MD Rylan Andrea Work Phone: [facility] 12-25-2022 11:05-0400 Body weight 66.95 kg MD Rylan Andrea Work Phone: [facility] 12-25-2022 11:05-0400 Diastolic blood pressure 85 mm[Hg] MD Rylan Andrea Work Phone: [facility] 12-25-2022 11:05-0400 Heart rate 94 /min MD Rylan Andrea Work Phone: [facility] 12-25-2022 11:05-0400 Respiratory rate 18 /min MD Rylan Andrea Work Phone: [facility] 12-25-2022 11:05-0400 SaO2% (BldA) [Mass fraction] 97 % MD Rylan Andrea Work Phone: [facility] 12-25-2022 11:05-0400 Systolic blood pressure 136 mm[Hg] MD Rylan Andrea Work Phone: [facility] 11-01-2022 10:41-0400 Body temperature 97.6 [degF] MD Rylan Andrea Work Phone: [facility] 11-01-2022 10:41-0400 Body weight 68.26 kg MD Rylan Andrea Work Phone: [facility] 11-01-2022 10:41-0400 Diastolic blood pressure 82 mm[Hg] MD Rylan Andrea Work Phone: [facility] 11-01-2022 10:41-0400 Heart rate 103 /min MD Rylan Andrea Work Phone: [facility] 11-01-2022 10:41-0400 Respiratory rate 18 /min MD Rylan Andrea Work Phone: [facility] 11-01-2022 10:41-0400 SaO2% (BldA) [Mass fraction] 99 % MD Rylan Andrea Work Phone: [facility] 11-01-2022 10:41-0400 Systolic blood pressure 121 mm[Hg] MD Rylan Andrea Work Phone: [facility] 10-26-2022 12:05-0400 Body height 182.88 cm MD Rylan Andrea Work Phone: [facility] 10-26-2022 12:05-0400 Body temperature 97.6 [degF] MD Rylan Andrea Work Phone: [facility] 10-26-2022 12:05-0400 Body weight 69 kg MD Rylan Andrea Work Phone: [facility] 10-26-2022 12:05-0400 Diastolic blood pressure 77 mm[Hg] MD Rylan Andrea Work Phone: [facility] 10-26-2022 12:05-0400 Heart rate 100 /min MD Rylan Andrea Work Phone: [facility] 10-26-2022 12:05-0400 Respiratory rate 20 /min MD Rylan Andrea Work Phone: [facility] 10-26-2022 12:05-0400 SaO2% (BldA) [Mass fraction] 98 % MD Rylan Andrea Work Phone: [facility] 10-26-2022 12:05-0400 Systolic blood pressure 120 mm[Hg] MD Rylan Andrea Work Phone: [facility] 09-19-2022 09:33-0400 Body weight 70.39 kg MD Rylan Andrea Work Phone: [facility] 09-19-2022 09:33-0400 Diastolic blood pressure 85 mm[Hg] MD Rylan Andrea Work Phone: [facility] 09-19-2022 09:33-0400 Heart rate 85 /min MD Rylan Andrea Work Phone: [facility] 09-19-2022 09:33-0400 Respiratory rate 20 /min MD Rylan Andrea Work Phone: [facility] 09-19-2022 09:33-0400 SaO2% (BldA) [Mass fraction] 97 % MD Rylan Andrea Work Phone: [facility] 09-19-2022 09:33-0400 Systolic blood pressure 128 mm[Hg] MD Rylan Andrea Work Phone: [facility] 09-04-2022 11:26-0400 Body temperature 98.6 [degF] MD Rylan Andrea Work Phone: [facility] 06-22-2022 13:07-0500 Body height 182.88 cm MD Rylan Andrea Work Phone: [facility] 06-22-2022 13:07-0500 Body temperature 98 [degF] MD Rylan Andrea Work Phone: [facility] 06-22-2022 13:07-0500 Body weight 73.2 kg MD Rylan Andrea Work Phone: [facility] 06-22-2022 13:07-0500 Diastolic blood pressure 88 mm[Hg] MD Rylan Andrea Work Phone: [facility] 06-22-2022 13:07-0500 Heart rate 112 /min MD Rylan Andrea Work Phone: [facility] 06-22-2022 13:07-0500 Respiratory rate 20 /min MD Rylan Andrea Work Phone: [facility] 06-22-2022 13:07-0500 SaO2% (BldA) [Mass fraction] 99 % MD Rylan Andrea Work Phone: [facility] 06-22-2022 13:07-0500 Systolic blood pressure 137 mm[Hg] MD Rylan Andrea Work Phone: [facility] 06-17-2022 12:00-0500 Body temperature 98.1 [degF] MD Rylan Andrea Work Phone: [facility] 06-17-2022 12:00-0500 Diastolic blood pressure 91 mm[Hg] MD Rylan Andrea Work Phone: [facility] 06-17-2022 12:00-0500 Heart rate 94 /min MD Rylan Andrea Work Phone: [facility] 06-17-2022 12:00-0500 Respiratory rate 20 /min MD Rylan Andrea Work Phone: [facility] 06-17-2022 12:00-0500 SaO2% (BldA) [Mass fraction] 97 % MD Rylan Andrea Work Phone: [facility] 06-17-2022 12:00-0500 Systolic blood pressure 142 mm[Hg] MD Rylan Andrea Work Phone: [facility] 06-16-2022 09:51-0500 Body height 182.88 cm MD Rylan Andrea Work Phone: [facility] 06-16-2022 09:51-0500 Body mass index (BMI) [Ratio] 20.2 kg/m2 MD Rylan Andrea Work Phone: [facility] 06-16-2022 09:51-0500 Body weight 67.9 kg MD Rylan Andrea Work Phone: [facility] 06-15-2022 12:00-0500 Body height 185.42 cm Rachid Chase Other [employer] [facility] [email or web address] Other 06-15-2022 12:00-0500 Body mass index (BMI) [Ratio] 19.63 kg/m2 Rachid Chase Other [employer] [facility] [email or web address] Other 06-15-2022 12:00-0500 Body temperature 97 [degF] Rachid Chase Other [employer] Other 06-15-2022 12:00-0500 Body weight 67.5 kg Rachid Blandban Other [employer] Other 06-15-2022 12:00-0500 Diastolic blood pressure 82 mm[Hg] Celsoal Chaban Other [employer] Other 06-15-2022 12:00-0500 Respiratory rate 20 /min Rachid Chaban Other [employer] Other 06-15-2022 12:00-0500 SaO2% (BldA) [Mass fraction] 98 % Rachid Blandban Other [employer] Other 06-15-2022 12:00-0500 Systolic blood pressure 114 mm[Hg] Celsoal Chaban Other [employer] Other 05-31-2022 15:30-0500 Body height 185.42 cm Rachid Blandban Other [employer] Other 05-31-2022 15:30-0500 Body mass index (BMI) [Ratio] 19.92 kg/m2 Rachid Chaban Other [employer] Other 05-31-2022 15:30-0500 Body temperature 97.6 [degF] Celsoal Chaban Other [employer] Other 05-31-2022 15:30-0500 Body weight 68.49 kg Celsoal Chaban Other [employer] Other 05-31-2022 15:30-0500 Diastolic blood pressure 80 mm[Hg] Celsoal Chaban Other [employer] Other 05-31-2022 15:30-0500 Respiratory rate 20 /min Rachid Chase Other [employer] Other 05-31-2022 15:30-0500 SaO2% (BldA) [Mass fraction] 98 % Rachid Chase Other [employer] Other 05-31-2022 15:30-0500 Systolic blood pressure 122 mm[Hg] Rachid Chase Other [employer] Other 04-21-2022 09:50-0500 Diastolic blood pressure 74 mm[Hg] MD Rylan Andrea Work Phone: [facility] 04-21-2022 09:50-0500 Heart rate 80 /min MD Rylan Andrea Work Phone: [facility] 04-21-2022 09:50-0500 Respiratory rate 18 /min MD Rylan Andrea Work Phone: [facility] 04-21-2022 09:50-0500 SaO2% (BldA) [Mass fraction] 99 % MD Rylan Andrea Work Phone: [facility] 04-21-2022 09:50-0500 Systolic blood pressure 111 mm[Hg] MD Rylan Andrea Work Phone: [facility] 04-21-2022 08:21-0500 Body height 182.88 cm MD Rylan Andrea Work Phone: [facility] 04-21-2022 08:21-0500 Body weight 70.3 kg MD Rylan Andrea Work Phone: [facility] 04-18-2022 13:59-0500 Diastolic blood pressure 82 mm[Hg] MD Rylan Andrea Work Phone: [facility] 04-18-2022 13:59-0500 Heart rate 99 /min MD Rylan Andrea Work Phone: [facility] 04-18-2022 13:59-0500 Respiratory rate 20 /min MD Rylan Andrea Work Phone: [facility] 04-18-2022 13:59-0500 SaO2% (BldA) [Mass fraction] 99 % MD Rylan Andrea Work Phone: [facility] 04-18-2022 13:59-0500 Systolic blood pressure 117 mm[Hg] MD Rylan Andrea Work Phone: [facility] 04-18-2022 12:41-0500 Body height 185.42 cm MD Rylan Andrea Work Phone: [facility] 04-18-2022 12:41-0500 Body weight 72.12 kg MD Rylan Andrea Work Phone: [facility] 04-14-2022 11:23-0500 Body temperature 98.3 [degF] MD Rylan Andrea Work Phone: [facility] 04-14-2022 11:23-0500 Body weight 70.3 kg MD Rylan Andrea Work Phone: [facility] 04-14-2022 11:23-0500 Diastolic blood pressure 93 mm[Hg] MD Rylan Andrea Work Phone: [facility] 04-14-2022 11:23-0500 Heart rate 95 /min MD Rylan Andrea Work Phone: [facility] 04-14-2022 11:23-0500 Respiratory rate 20 /min MD Rylan Andrea Work Phone: [facility] 04-14-2022 11:23-0500 SaO2% (BldA) [Mass fraction] 100 % MD Rylan Andrea Work Phone: [facility] 04-14-2022 11:23-0500 Systolic blood pressure 130 mm[Hg] MD Rylan Andrea Work Phone: [facility] 04-11-2022 16:03-0500 Body temperature 97.5 [degF] MD Rylan Andrea Work Phone: [facility] 04-11-2022 16:03-0500 Diastolic blood pressure 88 mm[Hg] MD Rylan Andrea Work Phone: [facility] 04-11-2022 16:03-0500 Heart rate 89 /min MD Rylan Andrea Work Phone: [facility] 04-11-2022 16:03-0500 Respiratory rate 15 /min MD Rylan Andrea Work Phone: [facility] 04-11-2022 16:03-0500 SaO2% (BldA) [Mass fraction] 97 % MD Rylan Andrea Work Phone: [facility] 04-11-2022 16:03-0500 Systolic blood pressure 125 mm[Hg] MD Ryaln Andrea Work Phone: [facility] 04-11-2022 05:07-0500 Body weight 67.7 kg MD Rylan Andrea Work Phone: [facility] 04-10-2022 15:56-0500 Body height 182.88 cm MD Rylan Andrea Work Phone: [facility] 04-10-2022 15:56-0500 Body temperature 98.2 [degF] MD Rylan Andrea Work Phone: [facility] 04-10-2022 15:56-0500 Body weight 66.7 kg MD Rylan Andrea Work Phone: [facility] 04-10-2022 15:56-0500 Diastolic blood pressure 99 mm[Hg] MD Rylan Andrea Work Phone: [facility] 04-10-2022 15:56-0500 Heart rate 99 /min MD Rylan Andrea Work Phone: [facility] 04-10-2022 15:56-0500 Respiratory rate 20 /min MD Rylan Andrea Work Phone: [facility] 04-10-2022 15:56-0500 SaO2% (BldA) [Mass fraction] 98 % MD Rylan Andrea Work Phone: [facility] 04-10-2022 15:56-0500 Systolic blood pressure 148 mm[Hg] MD Rylan Andrea Work Phone: [facility] 02-27-2022 14:35-0400 Body height 182.88 cm MD Rylan Andrea Work Phone: [facility] 02-27-2022 14:35-0400 Body temperature 97.7 [degF] MD Rylan Andrea Work Phone: [facility] 02-27-2022 14:35-0400 Body weight 70.35 kg MD Rylan Andrea Work Phone: [facility] 02-27-2022 14:35-0400 Diastolic blood pressure 90 mm[Hg] MD Rylan Andrea Work Phone: [facility] 02-27-2022 14:35-0400 Heart rate 80 /min MD Rylan Andrea Work Phone: [facility] 02-27-2022 14:35-0400 Respiratory rate 20 /min MD Rylan Andrea Work Phone: [facility] 02-27-2022 14:35-0400 SaO2% (BldA) [Mass fraction] 99 % MD Rylan Andrea Work Phone: [facility] 02-27-2022 14:35-0400 Systolic blood pressure 138 mm[Hg] MD Rylan Andrea Work Phone: [facility] 09-13-2021 16:00-0400 Body height 185.42 cm Anita Lincoln Other [employer] Other 09-13-2021 16:00-0400 Body mass index (BMI) [Ratio] 20.45 kg/m2 Anita Lincoln Other [employer] Other 09-13-2021 16:00-0400 Body temperature 99.4 [degF] Anita Lincoln Other [employer] Other 09-13-2021 16:00-0400 Body weight 70.31 kg Anita Lincoln Other [employer] Other 09-13-2021 16:00-0400 Diastolic blood pressure 82 mm[Hg] Anita Lincoln Other [employer] Other 09-13-2021 16:00-0400 Respiratory rate 18 /min Anita Lincoln Other [employer] Other 09-13-2021 16:00-0400 SaO2% (BldA) [Mass fraction] 97 % Anita Lincoln Other [employer] Other 09-13-2021 16:00-0400 Systolic blood pressure 160 mm[Hg] Anita Lincoln Other [employer] Other 09-08-2021 10:09-0400 Diastolic blood pressure 78 mm[Hg] Rylan Krystina Yola Phone: [employer] 250 DO Work Phone: 09-08-2021 10:09-0400 Systolic blood pressure 118 mm[Hg] Rylan Krystina Yola Phone: [employer] 250 DO Work Phone: 09-08-2021 10:05-0400 Body height 182.88 cm Rylan Flaherty Andrea Work Phone: [facility] 250 DO Work Phone: 09-08-2021 10:05-0400 Body mass index (BMI) [Ratio] 21.16 kg/m2 Rylan Flaherty Andrea Work Phone: [facility] 250 DO Work Phone: 09-08-2021 10:05-0400 Body surface area Derived from formula 1.92 m2 Rylan Flaherty Andrea Work Phone: [facility] 250 DO Work Phone: 09-08-2021 10:05-0400 Body weight 70.76 kg Rylan Flaherty Andrea Work Phone: [facility] 250 DO Work Phone: 09-08-2021 10:05-0400 Diastolic blood pressure 76 mm[Hg] Rylan Flaherty Andrea Work Phone: [facility] 250 DO Work Phone: 09-08-2021 10:05-0400 Heart rate 96 /min Rylan Flaherty Andrea Work Phone: [facility] 250 DO Work Phone: 09-08-2021 10:05-0400 Systolic blood pressure 120 mm[Hg] Rylan Flaherty Andrea Work Phone: [facility] 250 DO Work Phone: 09-08-2021 10:05-0400 20 1 Rylan Flaherty Andrea Work Phone: [facility] 250 DO Work Phone: Comment on above: PHQ-9 TS Encounters Encounter Date Encounter Type Care Provider Facility Start: 06-17-2024 End: 06-17-2024 Office outpatient visit 25 minutes Marilu Rafa [employer] Work Phone: [facility] Comment on above: Primary insomnia (Pr imary Dx); Primary pulmonary hypertension (CMS/HCC); Hair loss; Dry skin; 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) Start: 06-17-2024 End: 06-17-2024 ambulatory MARILU BONNER Not Available Start: 06-17-2024 End: 06-17-2024 Bamboo flowsheet Marilu Bonner [employer] Work Phone: [facility] Start: 06-17-2024 End: 06-17-2024 Bamboo flowsheet Marilu Bonner [employer] Work Phone: [facility] Start: 06-16-2024 End: 06-16-2024 Office outpatient new 30 minutes Karen Fernandez MD Work Phone: [facility] Comment on above: EIC (epidermal inclu sergei cyst) (Primary Dx); Other specified erythematous conditions Start: 06-16-2024 End: 06-16-2024 ambulatory KAREN FERNANDEZ Not Available Start: 06-16-2024 End: 06-16-2024 Bamboo flowsluis fernando Fernandez MD Work Phone: [facility] Start: 06-16-2024 End: 06-16-2024 Bamboo flowsluis fernando Fernandez MD Work Phone: [facility] Start: 06-03-2024 End: 06-03-2024 Clinisync Result Encounter Generic External Data Provider [facility] Unsolicited Start: 06-03-2024 End: 06-03-2024 Clinisync Result Encounter Generic External Data Provider [facility] External Department Unsolicited Start: 03-31-2024 ambulatory Rylan Andrea Facility:[facility] Start: 03-17-2024 End: 03-17-2024 Bamboo flowsheet Marilu Bonner [employer] Work Phone: [facility] Start: 03-17-2024 End: 03-17-2024 Bamboo flowsheet Marilu Bonner [employer] Work Phone: [facility] Start: 03-17-2024 End: 03-17-2024 Office outpatient visit 25 minutes Marilu Bonner [employer] Work Phone: [employer] [facility] Comment on above: Chronic obstructive pulmonary disease, unspecified COPD type (CMS/HCC) (Primary Dx); Person consulting for explanation of examination or test finding; Alcoholic liver disease, unspecified (CMS/HCC); Atherosclerosis of aorta (CMS/HCC); 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); Current moderate episode of major depressive disorder without prior episode (HCC) (CMS/HCC) Start: 03-17-2024 End: 03-17-2024 ambulatory MARILU BONNER Not Available Start: 02-18-2024 Non-patient / Non-visit MD Rylan Andrea Work Phone: [facility] Work Phone: Start: 02-18-2024 End: 02-18-2024 Admission to same day surgery center MD Rylan Andrea Work Phone: [facility] Work Phone: Start: 02-18-2024 End: 02-18-2024 ambulatory MD Rylan Andrea Work Phone: [facility] Work Phone: Start: 02-04-2024 End: 02-04-2024 Office outpatient visit 25 minutes Marilu Bonner [employer] Work Phone: [employer] [facility] Comment on above: Need for follow-up c are after discharge (Primary Dx); Current moderate episode of major depressive disorder without prior episode (HCC) (CMS/HCC) Start: 02-04-2024 End: 02-04-2024 ambulatory MARILU BONNER Not Available Start: 01-31-2024 End: 01-31-2024 ambulatory [facility] Work Phone: Start: 01-31-2024 End: 01-31-2024 Patient encounter procedure [facility] Work Phone: Start: 01-21-2024 End: 01-21-2024 Patient encounter procedure Marilu Bonner [employer] Work Phone: [facility] Work Phone: Start: 01-21-2024 End: 01-21-2024 Periodic preventive med est patient 40-64yrs Marilu Sterlingeusebia [employer] Work Phone: [facility] Comment on above: Encounter for annual wellness visit (AWV) in Medicare patient (Primary Dx) Start: 01-21-2024 End: 01-21-2024 ambulatory MARILU BONNER Not Available Start: 01-15-2024 End: 01-15-2024 Bamboo flowsheet Marilu Bonner [employer] Work Phone: [facility] Start: 01-15-2024 End: 01-15-2024 Bamboo flowsheet Marilu Bonner [employer] Work Phone: [facility] Start: 01-15-2024 End: 01-15-2024 Transitional care manage srvc 14 day discharge Marilu Bonner [employer] Work Phone: [facility] Comment on above: Need for follow-up c are after discharge (Primary Dx); Primary insomnia; Gastroesophageal reflux disease without esophagitis; Hx SBO; Constipation, unspecified constipation type; Mass of chin Start: 01-15-2024 End: 01-15-2024 ambulatory MARILU BONNER Not Available Start: 01-11-2024 ambulatory Manpreet SALEEM Facility:[facility] Start: 01-10-2024 End: 01-10-2024 Office outpatient new 45 minutes Ophelia James DO Work Phone: [facility] Comment on above: Chronic obstructive pulmonary disease, unspecified COPD type (CMS/HCC) (Primary Dx); Small pleural effusion; Small cell lung cancer in adult (CMS/HCC); Shortness of breath Start: 01-10-2024 End: 01-10-2024 ambulatory OPHELIA JAMES Not Available Start: 01-09-2024 End: 01-09-2024 ambulatory Manpreet SALEEM Facility:[id number] Start: 01-07-2024 Non-patient / Non-visit [facility] Work Phone: Start: 12-25-2023 End: 12-25-2023 Office outpatient visit 25 minutes Rylan Andrea MD Work Phone: [facility] Comment on above: Essential hypertensi on (CMS/HCC) (Primary Dx); Burning with urination; Urinary tract infection with hematuria, site unspecified; Gastroesophageal reflux disease without esophagitis; 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); Nausea; Generalized abdominal pain; Primary pulmonary hypertension (CMS/HCC) Start: 12-25-2023 End: 12-25-2023 ambulatory RYLAN ANDREA Not Available Start: 12-16-2023 End: 12-20-2023 Non-patient / Non-visit [facility] Work Phone: Start: 12-13-2023 End: 12-20-2023 Non-patient / Non-visit [facility] Work Phone: Start: 12-03-2023 End: 12-03-2023 ambulatory MARILU WARCHOL Not Available Start: 11-12-2023 End: 11-12-2023 ambulatory MARILU WARCHOL Not Available Start: 10-31-2023 End: 10-31-2023 ambulatory FLORINDA MONK Not Available Start: 10-04-2023 End: 10-04-2023 ambulatory MARILU WARCHOL Not Available Start: 09-19-2023 End: 09-19-2023 ambulatory MARILU WARCHOL Not Available Start: 09-11-2023 ambulatory RYLAN ANDREA [facility] Start: 09-11-2023 End: 09-11-2023 ambulatory MARILU WARCHOL Not Available Start: 08-16-2023 End: 08-16-2023 ambulatory RYLAN ANDREA Not Available Start: 06-29-2023 End: 06-29-2023 ambulatory MD Rylan Andrea Work Phone: [facility] Work Phone: Start: 06-29-2023 End: 06-29-2023 Patient encounter procedure MD Rylan Andrea Work Phone: [facility] Work Phone: Start: 06-29-2023 Registered Recurring MD Rylan Andrea Work Phone: [facility] Center Acute Work Phone: Start: 06-25-2023 External Result Encounter Estela Varma DO Work Phone: [facility] Unsolicited Start: 06-25-2023 External Result Encounter Estela Varma DO Work Phone: [facility] Unsolicited Start: 04-05-2023 End: 04-28-2024 Orders Only Rylan Andrea MD Work Phone: [facility] Start: 12-25-2022 End: 12-25-2022 ambulatory MD Rylan [...] patient visit MD Rylan Andrea Work Phone: [facility] Work Phone: Start: 10-26-2022 Registered Recurring MD Rylan Andrea Work Phone: [facility] Work Phone: Start: 10-18-2022 End: 10-18-2022 ambulatory MD Rylan Andrea Work Phone: [facility] Work Phone: Start: 10-18-2022 End: 10-18-2022 Patient encounter procedure MD Rylan Andrea Work Phone: [facility]XRay [facility] [place] Work Phone: Start: 10-10-2022 End: 10-10-[address] RYLAN ANDREA Facility:[facility] Start: 10-03-2022 End: 10-03-[address] RYLAN ANDREA Facility:[facility] Start: 09-19-2022 End: 09-19-2022 ambulatory MD Rylan Andrea Work Phone: [facility] Work Phone: Start: 09-19-2022 End: 09-19-2022 Registered Recurring MD Rylan Andrea Work Phone: [facility] Work Phone: Start: 09-19-2022 Registered Recurring MD Rylan Andrea Work Phone: [facility] Work Phone: Start: 09-11-2022 [...] Registered Recurring MD Rylan Andrea Work Phone: [facility] Work Phone: Start: 06-18-2022 End: 06-18-[address] JESSE RAMOS Facility:[facility] Start: 06-16-2022 End: 06-17-2022 Admission to same day surgery center MD Rylan Andrea Work Phone: [facility]Surgery [facility] [place] Start: 06-15-2022 Office outpatient visit 25 minutes Kamal Chaban [facility] Start: 06-15-2022 End: 06-15-2022 ambulatory MD Rylan Andrea Work Phone: [facility] Work Phone: Start: 06-15-2022 End: 06-15-2022 Patient encounter procedure MD Rylan Andrea Work Phone: [facility]-Pre-Surgical Testing Work Phone: Start: 06-01-2022 End: 06-01-2022 ambulatory MD Rylan Andrea Work Phone: [facility] Work Phone: Start: 06-01-2022 End: 06-01-2022 Patient encounter procedure MD Rylan Andrea Work Phone: [facility]CT Scan [facility] [place] Work Phone: Start: 05-31-2022 End: 05-31-2022 ambulatory Rachid Chase Other [employer] Other Start: 05-31-2022 Office outpatient ne w 45 minutes Kamal Chaban [facility] Start: 04-21-2022 End: 04-21-2022 Admission to same day surgery center MD Rylan Andrea Work Phone: [facility]Ultrasound [facility] [place] Start: 04-21-2022 End: 04-21-2022 ambulatory MD Rylan Andrea Work Phone: [facility] Work Phone: Start: 04-18-2022 End: 04-18-2022 Admission to same day surgery center MD Rylan Andrea Work Phone: [facility]Ultrasound [facility] [place] Start: 04-18-2022 End: 04-18-2022 ambulatory MD Rylan Andrea Work Phone: [facility] Work Phone: Start: 04-14-2022 End: 04-14-2022 ambulatory MD Rylan Andrea Work Phone: [facility] Work Phone: Start: 04-14-2022 End: 04-14-2022 Registered Recurring MD Rylan Andrea Work Phone: [facility] Start: 04-14-2022 Registered Recurring MD Rylan Andrea Work Phone: [facility] Start: 04-10-2022 End: 04-11-2022 Evaluation and management of inpatient MD Rylan Andrea Work Phone: [facility] Start: 04-10-2022 observation encounter MD Rylan Andrea Work Phone: [facility] Work Phone: Start: 04-10-2022 Registered Recurring MD Rylan Andrea Work Phone: [facility] Start: 02-27-2022 End: 02-27-2022 ambulatory MD Rylan Andrea Work Phone: [facility] Work Phone: Start: 02-27-2022 End: 02-27-2022 Registered Recurring MD Rylan Anrdea Work Phone: [facility] Start: 11-29-2021 ambulatory Rylan Ortiz ity: Start: 11-23-2021 End: 11-24-[address] MARCE PAGAN Facility:[facility] Start: 09-13-2021 Chart Update Rylan Andrea Work Phone: [facility] 250 DO Work Phone: Start: 09-13-2021 End: 09-13-2021 ambulatory Anita Lincoln Other [facility] [email or web address] Other Start: 09-13-2021 Office outpatient visit 25 minutes Anita Romeroraw [facility] Palliative Care Start: 09-09-2021 ambulatory Rylan Andrea [facility] [id number] Start: 09-09-2021 [facility], Provider: Lukas Oliveira, Status: Pen, Time: 1:00 PM Rylan Andrea Work Phone: [facility] 250 DO Work Phone: Start: 09-08-2021 Office consultation new/estab patient 80 min Rylan Andrea Work Phone: [facility] 250 DO Work Phone: Start: 09-08-2021 ambulatory Estela Vazquez [facility] Facility: Start: 08-06-2020 End: 08-07-2020 Patient encounter procedure [facility] Start: 04-24-2018 End: 05-14-2018 Patient encounter procedure CUBA Flaherty [facility] Procedures Date Procedure Procedure Detail Performing Clinician Start: 06-03-2024 [employer] TIBC Generic External Data Provider Start: 02-18-2024 Esophagogastroduodenoscopy MD Rylan Lawrence er Work Phone: Start: 02-18-2024 Colonoscopy Marilu Bonner [employer] Work Phone: Start: 12-25-2023 Urnls dip stick/tablet rgnt non-auto w/o micrscp Rylan Andrea MD Work Phone: Start: 12-25-2023 Culture bacterial quanttative colony count urine Rylan Andrea MD Work Phone: Start: 06-25-2023 Carcinoembryonic antigen cea Estela taveras DO Work Phone: Comment on above: Serial tumor marker results determined b y assays using different manufacturers or methods may not be comparable. [facility] stretcher and drier and method: VALENTINE UNICEL DXI, 2 SITE IMMUNOENZYMATIC SANDWICH ASSAY. Start: 06-25-2023 Positron emission tomography with computed tomography MD Rylan Andrea Work Phone: Start: 06-25-2023 Carcinoembryonic antigen cea Estela Rosales Kojo DO Work Phone: Comment on above: Result Comment: Serial tumor marker resu lts determined by assays using different manufacturers or methods may not be comparable. [facility] stretcher and drier and method: VALENTINE UNICEL DXI, 2 SITE IMMUNOENZYMATIC ?SANDWICH? ASSAY. PERFORMED BY: [place] [address] PATHOLOGIST BRANCH OFFICE ADMINISTRATOR CATY DELCID M.D. Performed By: #### F E and TIBC, CEA, T4F, TSH3, YUSUF, [id number], CMP, CBC, MARILU, LIPASE #### [address] #### METH #### [facility] , Start: 06-25-2023 Complete blood count with white cell differential, automated Estela Rosales Kojo DO Work Phone: Start: 06-25-2023 GLUCOSE POCT GLUCOMETERS Estela J Kojo DO Work Phone: Start: 03-29-2023 METHYLMALONIC ACID AND HOMOCYSTEINE Rylan Andrea MD Work Phone: Start: 12-22-2022 Positron emission tomography with computed tomography MD Rylan Andrea Work Phone: Start: 10-26-2022 Plain chest X-ray MD Rylan Andrea Work Phone: Start: 10-18-2022 Plain chest X-ray MD Rylan Andrea Work Phone: Start: 09-15-2022 Positron emission tomography with computed tomography MD Rylan Andrea Work Phone: Start: 06-17-2022 Plain chest X-ray MD Rylan Andrea Work Phone: Start: 06-16-2022 End: 06-16-2022 Plain chest X-ray MD Rylan Andrea Work Phone: Start: 06-16-2022 Insertion of pleural tube drain MD Rylan Andrea Work Phone: Start: 06-16-2022 End: 06-16-2022 Plain chest X-ray MD Rylan Andrea Work Phone: Start: 06-01-2022 CT of thorax with contrast MD Rylan Lawrence er Work Phone: Start: 04-21-2022 Ultrasonic guidance for thoracentesis MD Rylan Andrea Work Phone: Start: 04-18-2022 Ultrasonic guidance for thoracentesis MD Rylan Andrea Work Phone: Start: 04-11-2022 Plain chest X-ray MD Rylan Andrea Work Phone: Start: 04-11-2022 Aerobic microbial culture MD Rylan Bernstein r Work Phone: Start: 04-11-2022 Anaerobic microbial culture MD Rylan ngo Work Phone: Start: 04-11-2022 Investigation of transfusion reaction MD Rylan Andrea Work Phone: Start: 04-10-2022 Blood culture for bacteria, including anaerobic screen MD Rylan Andrea Work Phone: Start: 04-10-2022 Plain chest X-ray MD Rylan Andrea Work Phone: Start: 04-10-2022 Computed tomography of abdomen and pelvis with contrast MD Rylan Andrea Work Phone: Start: 04-10-2022 CT of thorax with contrast MD Rylan Lawrence er Work Phone: Start: 01-03-2022 Computed tomography of abdomen and pelvis with contrast MD Rylan Andrea Work Phone: Start: 01-03-2022 CT of thorax with contrast MD Rylan Lawrence er Work Phone: Start: 09-02-2021 Positron emission tomography with computed tomography MD Rylan Andrea Work Phone: Start: 08-18-2021 Computed tomography of abdomen and pelvis with contrast MD Rylan Andrea Work Phone: Start: 08-18-2021 CT of thorax with contrast MD Rylan reyes Work Phone: Start: 08-18-2021 CT of head with contrast MD Rylan Andrea Work Phone: Start: 04-01-2021 Computed tomography of abdomen and pelvis with contrast MD Rylan Andrea Work Phone: Start: 04-01-2021 CT of head with contrast MD Rylan Andrea Work Phone: Start: 04-01-2021 CT of thorax with contrast MD Rylan reyes Work Phone: Start: 01-31-2021 Plain chest X-ray MD Rylan Andrea Work Phone: Start: 12-03-2020 CT of head with contrast MD Rylan Andrea Work Phone: Start: 12-03-2020 CT of thorax with contrast MD Rylan reyes Work Phone: Start: 09-08-2020 CT of thorax with contrast MD Rylan reyes Work Phone: Start: 07-20-2020 MRI of head MD Rylan Andrea Work Phone: Start: 03-23-2020 Computed tomography of abdomen and pelvis with contrast MD Rylan Andrea Work Phone: Start: 03-23-2020 CT of thorax with contrast MD Rylan reyes Work Phone: Start: 11-24-2019 CT of head with contrast MD Rylan Andrea Work Phone: Start: 10-24-2017 Cookie Varma DO Work Phone: Aerobic microbial culture MD Rylan Andrea Work Phone: Anaerobic microbial culture MD Rylan Andrea Work Phone: Blood culture for raman cteria, including anaerobic screen MD Rylan Averyter Work Phone: Insertion of implant able venous access port Rylna Krystina Andrea Work Phone: Investigation of tra nsfusion reaction MD Fagan Andrea Work Phone: Surgical repair of upper extremity Rylan Krystina Andrea Work Phone: Total colonoscopy Rylan Flaherty Ba xter Work Phone: Comment on above: 2016; Vasectomy Rylan Andrea Work Phone: Plan of Treatment Date Care Activity Detail Author Start: 02-17-2034 Screening for malign ant neoplasm of colon [facility] Start: 10-25-2027 Screening for malign ant neoplasm of colon [facility] Start: 01-20-2025 Medicare Annual Well ness (AWV) Medicare Annual Wellness (AWV) [facility] Start: 11-10-2024 Influenza vaccination Influenza Vacc ine (#1) [facility] Comment on above: Postponed from 01/12 (Supply/Drug Shortage) Start: 09-15-2024 End: 09-15-2024 Patient encounter procedure 09/15/2024 2:00 PM EDT Office Visit [facility] [address] [place] [address] Marilu Bonner, [employer] [address] [place] [address] [facility] Start: 07-07-2024 End: 07-07-2024 Patient encounter procedure 07/07/2024 8:45 AM EST Procedure Visit [facility] [address] [place] [address] Karen Fernandez MD [address] [place], [place] [id number] [facility] Start: 06-17-2024 End: 06-17-2024 Patient encounter procedure [facility] Comment on above: Encounter for annual wellness visit (AWV) in Medicare patient (Primary Dx); Primary pulmonary hypertension (CMS/HCC) Start: 06-16-2024 End: 06-16-2024 Patient encounter procedure [facility] Comment on above: Mass of chin Start: 06-12-2024 End: 06-12-2024 Patient encounter procedure 06/12/2024 2:40 PM EST Office Visit [facility] [address] [place] [address] Marilu Bonner NP [address] [place] [address] [facility] Start: 05-05-2024 End: 05-05-2024 Patient encounter procedure 05/05/2024 2:35 PM EST Office Visit [facility] [address] [place] [id number] Karen Fernandez MD [address] [place] [address] [facility] Start: 04-22-2024 End: 04-22-2024 Patient encounter procedure 04/22/2024 2:00 PM EST Office Visit [facility] [address] [place] [address] Marilu Bonner NP [address] [place] [address] [facility] Start: 04-08-2024 End: 04-08-2024 Patient encounter procedure 04/08/2024 3:15 PM EST Office Visit [facility] [address] [place] [address] Ophelia James DO [address] [place] [address] [facility] Start: 04-03-2024 End: 04-03-2024 Patient encounter procedure 04/03/2024 3:00 PM EST Office Visit [facility] [address] [place] [address] Marilu Bonner [employer] [address] [place] [address] [facility] Start: 03-17-2024 End: 03-17-2024 Patient encounter procedure 03/17/2024 2:00 PM EST Office Visit [facility] [address] [place] [address] Marilu Bonner NP [address] [place] [address] Person consulting for explanation of examination or test finding (Primary Dx); Alcoholic liver disease, unspecified (CMS/HCC); Atherosclerosis of aorta (CMS/HCC) [facility] Comment on above: Person consulting fo r explanation of examination or test finding (Primary Dx); Alcoholic liver disease, unspecified (CMS/HCC); Atherosclerosis of aorta (CMS/HCC) Start: 03-14-2024 Influenza vaccination Influenza Vacc ine (#1) [facility] Comment on above: Postponed from 01/12 (Patient Refused) Start: 03-03-2024 End: 03-03-2024 Patient encounter procedure 03/03/2024 2:00 PM EDT Office Visit [facility] [address] [place] [address] Marilu Bonner [employer] [address] [place] [address] [facility] Start: 02-18-2024 End: 02-18-2024 [facility] Start: 02-12-2024 End: 02-12-2024 Patient encounter procedure 02/12/2024 2:20 PM EDT Office Visit [facility] [address] [place] [address] Marilu Bonner [employer] [address] [place] [address] [facility] Start: 01-21-2024 End: 01-21-2024 Patient encounter procedure 01/21/2024 2:00 PM EDT Office Visit [facility] [address] [place] [phone] Marilu Bonner NP [address] [place] [address] [facility] Start: 01-17-2024 End: 01-17-2024 Patient encounter procedure 01/17/2024 9:50 AM EDT Procedure Visit [facility] Florinda Monk, DO [address] [place] [address] [facility] Start: 01-15-2024 End: 01-15-2024 Patient encounter procedure [facility] Comment on above: Need for follow-up c are after discharge (Primary Dx) Start: 01-13-2024 Influenza vaccination Influenza Vacc ine (#1) [facility] Start: 01-10-2024 End: 01-10-2024 Patient encounter procedure 01/10/2024 2:30 PM EDT Consult [facility] [address] [place] [phone] Ophelia James, [address] [place] [address] [facility] Start: 01-08-2024 End: 01-08-2024 Patient encounter procedure 01/08/2024 4:20 PM EDT Office Visit [facility] [address] [place] [phone] Rylan Andrea MD [address] [place] [address] [facility] Start: 11-11-2023 Influenza vaccination Influenza Vacc ine (#1) [facility] Comment on above: Postponed from 01/12 (Patient Refused) Start: 07-10-2023 End: 07-10-2023 Patient encounter procedure 07/10/2023 1:40 PM EST Office Visit [facility] [address] [place] [id number] Rylan Andrea MD [address] [place] [address] [facility] Start: 06-25-2023 [facility] Start: 12-11-2022 [facility] Start: 10-26-2022 Erythropoietin (EPO) [Units/volume] in Serum or Plasma [facility] Start: 06-17-2022 [facility] Start: 06-16-2022 Referral to clinical harp regulator [facility] Start: 04-21-2022 [facility] Start: 04-21-2022 Ultrasonic guidance for thoracentesis [facility] Start: 04-18-2022 [facility] Start: 04-18-2022 Ultrasonic guidance for thoracentesis [facility] Start: 04-14-2022 [facility] Start: 04-11-2022 [facility] Start: 04-11-2022 Troponin I.cardiac [Mass/volume] in Serum or Plasma by High sensitivity method [facility] Start: 04-10-2022 Referral to oncologist [facility] Start: 04-10-2022 Hospital admission [facility] Start: 04-10-2022 [facility] Start: 02-27-2022 [facility] Start: 11-29-2021 FUV, Provider: Lukas Oliveira, Status: Pen, Time: 11:10 AM FUV, Provider: Lukas Oliveira, Status: Pen, Time: 11:10 AM [facility] [address] DO Work Phone: Start: 09-05-2021 [facility] Start: 08-22-2021 [facility] Start: 04-05-2021 [facility] Start: 02-01-2021 [facility] Start: 08-16-2020 [facility] Start: 08-05-2020 [facility] Start: 07-26-2020 [facility] Start: 07-06-2020 [facility] Start: 06-29-2020 [facility] Start: 06-14-2020 [facility] Start: 05-24-2020 [facility] Start: 05-03-2020 [facility] Start: 04-12-2020 [facility] Start: 04-12-2020 [facility] Start: 03-08-2020 [facility] Start: 02-24-2020 [facility] Start: 02-18-2020 [facility] Start: 02-16-2020 End: 02-16-2020 [facility] Start: 02-16-2020 [facility] Start: 02-10-2020 [facility] Start: 02-04-2020 End: 02-04-2020 [facility] Start: 01-28-2020 [facility] Start: 01-26-2020 [facility] Start: 01-26-2020 [facility] Start: 01-21-2020 [facility] Start: 01-21-2020 End: 01-21-2020 [facility] Start: 01-06-2020 [facility] Start: 01-05-2020 [facility] Start: 12-15-2019 [facility] Start: 11-24-2019 [facility] Start: 1965 Medicare Annual Well ness (AWV) Medicare Annual Wellness (AWV) [facility] Start: 1965 Screening for malign ant neoplasm of colon [facility] Amylase [Enzymatic activity/volume] in Serum or Plasma Amylase Lab Routine 06/25/2023 7:57 AM EST [facility] Bacteria identified in Blood by Culture [facility] Blood culture for bacteria, including anaerobic screen Blood Culture [facility] Carcinoembryonic Ag [Mass/volume] in Serum or Plasma [facility] Comprehensive metabo lic 1999 panel - Serum or Plasma [facility] Comprehensive metabo lic 1999 panel - Serum or Plasma [facility] Comprehensive metabo lic 1999 panel - Serum or Plasma [facility] Comprehensive metabo lic 1999 panel - Serum or Plasma [facility] Comprehensive metabo lic 1999 panel - Serum or Plasma Comprehensive metabolic panel Lab Routine 06/25/2023 7:57 AM EST [facility] Work Phone: Comprehensive metabo lic 1999 panel - Serum or Plasma [facility] CT Abdomen and Pelvi s W contrast IV [facility] CT Abdomen and Pelvi s W contrast IV [facility] CT Abdomen and Pelvi s W contrast IV [facility] CT Chest W contrast IV [facility] CT Chest W contrast IV [facility] CT Chest W contrast IV [facility] Erythrocyte sediment ation rate by Photometric method [facility] Erythropoietin (EPO) [Units/volume] in Serum or Plasma [facility] Iron and Iron bindin g capacity panel - Serum or Plasma Iron and TIBC Lab Routine 06/25/2023 7:57 AM EST [facility] Lipase [Enzymatic activity/volume] in Serum or Plasma Lipase Lab Routine 06/25/2023 7:57 AM EST [facility] Methylmalonate [Moles/volume] in Serum or Plasma [facility] Patient Education [facility] Work Phone: Patient referral [facility] Work Phone: Thyrotropin [Units/volume] in Serum or Plasma [facility] Ultrasonic guidance for thoracentesis [facility] Ultrasonic guidance for thoracentesis [facility] Immunizations Immunization Date Immunization Notes Care Provider Anjel carver 09-01-2020 Pfizer-BioNTech COVID-19 Vacc 30 MCG/0.3ML Intramuscular Suspension Rylan A Andrea Work Phone: [facility] 07-30-2020 Pfizer-BioNTech COVID-19 Vacc 30 MCG/0.3ML Intramuscular Suspension Rylan A Andrea Work Phone: [facility] 03-24-2020 influenza, injectabl e, quadrivalent, preservative free Rylan A Anrdea Work Phone: [facility] 03-24-2020 influenza virus vaccine, unspecified formulation Estela Varma DO Work Phone: [facility] 03-15-2020 influenza, injectabl e, quadrivalent, preservative free Rylan A Andrea Work Phone: [facility] Healthcare Payers Date Payer Category Payer Self-pay [id number] 2023 Medicare (Managed Care) [facility] MEDICARE [id number] 2023 Private Health Insurance [id number] 2021 Medicaid [id number] 2021 Medicare [id number] 2017 Private Health Insurance [id number] 1965 Unknown [id number] 2.16.840.1.015416.3.579.2. 173 1965 Unknown [id number] 2.16.840.1.426346.3.579.2. 356 1965 Unknown [id number] 2.16.840.1.668121.3.579.2. 356 1965 Unknown [id number] 2.16.840.1.859852.3.579.2. 356 1965 Unknown [id number] 2.16.840.1.444577.3.579.2. 593 1965 Unknown [id number] 2.16.840.1.448418.3.579.2. 593 1965 Unknown [id number] 2.16.840.1.763116.3.579.2. 593 1965 Unknown [id number] 2.16.840.1.132587.3.579.2. 593 1965 Unknown [id number] 2.16.840.1.644755.3.579.2. 593 1965 Unknown [id number] 2.16.840.1.998380.3.579.2. 593 1965 Unknown [id number] 2.16.840.1.723206.3.579.2. 593 1965 Unknown [id number] 2.16.840.1.789953.3.579.2. 593 1965 Unknown [id number] 2.16.840.1.238417.3.579.2. 593 1965 Unknown [id number] 2.16.840.1.985964.3.579.2. 1286 1965 Unknown [id number] 2.16.840.1.448822.3.579.2. 1286 1965 Unknown [id number] 2.16.840.1.529960.3.579.2. 1286 1965 Unknown [id number] 2.16.840.1.476370.3.579.2. 1286 1965 Unknown [id number] 2.16.840.1.649339.3.579.2. 1286 1965 Unknown [id number] 2.16.840.1.183315.3.579.2. 727 1965 Unknown [id number] 2.16.840.1.011583.3.579.2. 727 1965 Unknown [id number] 2.16.840.1.447851.3.579.2. 1259 1965 Unknown [id number] 2.16.840.1.963755.3.579.2. 1258 1965 Unknown [id number] 2.16.840.1.217970.3.579.2. 1258 1965 Unknown [id number] 2.16.840.1.716862.3.579.2. 1258 1965 Unknown [id number] 2.16840.1.846135.3.579.2. 1258 1965 Unknown [id number] 2.840.1.042377.3.579.2. 1258 1965 Unknown [id number] 2.16.840.1.427792.3.579.2. 1258 1965 Unknown [id number] 2.16.840.1.058295.3.579.2. 1258 1965 Unknown [id number] 2.840.1.364219.3.579.2. 1258 1965 Unknown [id number] 2.840.1.012355.3.579.2. 1258 1965 Unknown [id number] 2.16.840.1.189283.3.579.2. 1258 1965 Unknown [id number] 2.16.840.1.730164.3.579.2. 1258 1965 Unknown [id number] 2.16.840.1.541130.3.579.2. 1258 1965 Unknown [id number] 2.16.840.1.601104.3.579.2. 1258 1965 Unknown [id number] 2.16.840.1.205700.3.579.2. 1259 1959 Medicaid [id number] 1959 Medicare [id number] 1959 Private Health Insurance [id number] Private Health Insurance [facility] [id number] Unknown Unknown [id number] 2.16.840.1.180908.19 Unknown [id number] 2.16.840.1.472714.3.579.2. 531 Unknown [id number] 2.16.840.1.048565.3.579.2. 531 Social History Date Type Detail Facility Start: 04-13-2023 End: 11-12-2023 Occasional alcohol use Occasional alcohol use [facility] Comment on above: beer; medical marijuana ed ibles; quit 2020 1ppd; Start: 04-11-2023 End: 11-12-2023 Sex Assigned At [facility] Start: 02-27-2022 End: 10-31-2023 Tobacco smoking status [facility] Ex-smoker (finding) [facility] Start: 1965 Sex Assigned At Male F [facility] Start: 10-26-2022 End: 12-25-2022 Tobacco smoking status [facility] Never smoked tobacco (finding) [facility] Start: 04-12-2023 Tobacco smoking stat [facility] Occasional tobacco smoker [facility] History of tobacco use Cigar Smoker [facility] Start: 04-12-2023 End: 10-31-2023 Tobacco use and exposure Smokeless tobacco non-user [facility] Start: 04-13-2023 End: 06-17-2024 Alcohol intake Current drinker of alcohol (finding) [facility] How often [...] Sex Assigned At Not on file [facility] Start: 07-26-2022 Gender identity Identifies as male gender (finding) [facility] History of tobacco use Current smoker [facility] History of tobacco use Cigarette Smoker [facility] How often do you nee d to have someone help you when you read instructions, pamphlets, or other written material from your doctor or pharmacy [SILS] Patient declines to respond [facility] Do you belong to any clubs or organizations such as latter-day groups, unions, fraSylantro or athletic groups, or school groups? No [facility] Are you now , , , , never or living with a partner? [facility] How hard is it for y ou to pay for the very basics like food, housing, medical care, and heating Somewhat hard [facility] Do you feel stress - tense, restless, nervous, or anxious, or unable to sleep at night because your mind is troubled all the time - these days [OSQ] To some extent [facility] (I/We) worried wheth er (my/our) food would run out before (I/we) got money to buy more. Sometimes true [facility] Start: 02-04-2024 Alcohol Comment Pt drinks a 6 pack per week if that [facility] Start: 12-25-2023 Alcoholic beverage intake Ex-drinker (finding) [facility] Start: 11-12-2023 Alcohol Comment He drinks a 6 pack in 3 days [facility] Start: 01-21-2024 Alcohol Comment Very heavily, 2 cases of beer a week [facility] NEGATED: Highlighted rowStart: NINF History of tobacco use Passive smoker [facility] Medical Equipment Procedure Code Equipment Code Equipment Origin al Text Equipment Identifier Dates Repair, hernia, inguinal, with mesh Abdominal hernia surgical mesh, synthetic polymer, non-bioabsorbable [id number] FDA Start: 05-10-2020 Insertion of central venous catheter (CVC) with subcutaneous port for chemotherapy Vascular port/catheter [id number] FDA Start: 11-26-2019 Goals Date Patient Goal Desired Activity /State Functional Status Date Assessment Result Facility 06-17-2022 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 [facility] Work Phone: 04-11-2022 Functional status Patient at Baseline [facility] Work Phone: 04-10-2022 Functional status Patient at Baseline [facility] Work Phone: 09-08-2021 PHQ-9 [id number] Severe (20-27) [facility] [address] DO Work Phone: Mental Status Date Assessment Result Facility 06-17-2022 Cognitive function Cognitive Sta tus Patient at Baseline [facility] Work Phone: 04-11-2022 Cognitive function Cognitive Sta tus Patient at Baseline [facility] Work Phone: 04-10-2022 Cognitive function Cognitive Sta tus Patient at Baseline [facility] Work Phone: Clinical Notes 11-18-2019 to 06-17-2024 Patient InstructionsEmbonita Fernandez MD - 06/16/2024 2:30 PM Codie Bonner NP - 03/17/2024 2:00 PM ESTPatient Instructions Note Date & Type Note Facility 06-17-2024 Instructions Marilu Bonner NP - 06/17/2024 3:00 PM EST PATIENT EDUCATION: Insomnia 1) Cognitive behavioral therapy is beneficial in identifying the underlying cause of insomnia. 2) Sleep hygiene and relaxation techniques. Sleep hygiene involves the development of habits conducive to sleep, such as maintaining regular bedtimes and rise times, avoiding daytime naps, avoiding alcohol and electronic devices before bedtime, and avoiding caffeine. Progressive relaxation therapy involves the tensing and relaxation of muscles systematically from head to toe. Guided imagery and meditation instructs you how to replace anxiety-ridden thoughts with pleasant, restful imagery. Music interventions, notably music-associated relaxation and listening to music, have been reported to improve sleep for adults with insomnia unrelated to underlying health conditions. 3) No blue screens an hour prior to lying down. Patient advised to take medication as directed, and to call office if no relief occurs. 4) Follow up as discussed to assess medication efficacy. OARRS reviewed. Avoiding mixing hypnotics with other controlled substances, muscle relaxers, alcohol and drugs as the risk for overdose increases substantially. Patient verbalized understanding and will attempt to do as instructed. Hypothyroidism The symptoms of hypothyroidism include fatigue, weakness, weight gain, muscle aches, constipation, depressed mood, dry skin, intolerance of cold temperatures, and heavy menstrual periods. Since absorption of this medication is increased on an empty stomach, take your thyroid medicine on an empty stomach 60 minutes before breakfast. Do not stop taking the medication even if you feel better. Do not take your thyroid medication at the same time as fiber supplements, calcium, iron, multivitamins, or aluminum hydroxide antacids or any medications that bind bile acids. Take your thyroid medication and these medications at least 4 hours apart. Continue with diet and exercise. Repeat labs in specified time frame as discussed during your appointment. Patient understands treatment plan. documented in this encounter [facility] 06-16-2024 History of Presen t illness Narrative Images from the original note were not included. Lesions: Location: right mandible Duration: year Quality: moves up and down the jaw line Modifying factors: none Associated symptoms: enlarged, non-healing Treatments: none New patient All pertinent medical history, medications, and allergies were reviewed. General Exam: alert, oriented to person, place, and time, normal affect, well appearing Unaccompanied A focused exam completed based on patient reported problems, see below: 1. EIC (epidermal inclusion cyst) Right Anterior Mandible 1.6 x 1.6 cm erythematous, subcutaneous nodule Patient was counseled regarding cysts. Although benign, cysts often slowly enlarge and can occasionally become inflamed. Discussed the only way to definitively diagnose the lesion would be to have it removed and tested. Discussed treatment options including observation vs. excision. Patient elected for excision. Reviewed procedure and what to expect. Patient scheduled for 30 minute excision on 07/07/24 at 8:45am. Related Procedures Ambulatory referral to Dermatology 2. Other specified erythematous conditions Next Visit: prn for any new/changing lesions documented in this encounter [facility] 03-17-2024 History of Presen t illness Narrative Images from the original note were not included. SUBJECTIVE Kirill Echols is a 58 y.o. male who presents for a chronic illness management visit and review of recent colonoscopy. CURRENT MEDICATIONS Current Outpatient Medications: acetaminophen (Tylenol) 325 MG tablet, 650 mg Orally Q 8 hrs as needed, Disp: , Rfl: Aspirin Low Dose 81 MG EC tablet, Take 81 mg by mouth in the morning. as directed., Disp: , Rfl: cyanocobalamin (Vitamin B-12) 1000 MCG tablet, Take 1,000 mcg by mouth Daily, Disp: , Rfl: melatonin 3 MG tablet, Take 1 tablet (3 mg) by mouth as needed at bedtime for sleep, Disp: 90 tablet, Rfl: 3 nitroglycerin (Nitrostat) 0.4 MG SL tablet, 1 (one) time each day at the same time., Disp: , Rfl: Nwyvnutakky-Epynqfhon-Ejilpn (Trelegy Ellipta) 100-62.5-25 MCG/ACT aerosol powder , Inhale 1 puff Daily, Disp: , Rfl: levothyroxine (Synthroid, Levoxyl) 100 MCG tablet, Take 1 tablet (100 mcg) by mouth in the morning. Take before meals., Disp: , Rfl: QUEtiapine (SEROquel) 100 MG tablet, Take 1 tablet in the morning and 2 tablets at night, Disp: , Rfl: RECENT VITAL SIGNS 12/03/2023 2:11 PM 12/25/2023 1:00 PM 01/10/2024 2:14 PM 01/15/2024 1:54 PM 01/21/2024 1:53 PM 02/04/2024 1:42 PM 03/17/2024 1:54 PM Vitals BMI 20.05 kg/m2 18.44 kg/m2 18.85 kg/m2 19.12 kg/m2 18.85 kg/m2 19.23 kg/m2 19.94 kg/m2 BSA (m2) 1.84 m2 1.77 m2 1.79 m2 1.8 m2 1.79 m2 1.81 m2 1.84 m2 Systolic 126 110 133 122 132 130 118 Diastolic 78 82 84 74 78 72 88 Heart Rate 84 116 74 99 108 100 60 SpO2 100 % 93 % 88 % 97 % 98 % 97 % 99 % Temp 97.3 F 97.2 F 96.3 F 98.2 F 97.6 F 98 F Resp 16 16 Height (in) 6' 6' 6' 6' 6' 6' 6' Weight (lb) 147.8 136 139 141 139 141.8 147 Visit Report Report Report Report Report Report Report OBJECTIVE Physical Exam Vitals and nursing note reviewed. Constitutional: Appearance: Normal appearance. He is normal weight. HENT: Head: Normocephalic and atraumatic. Right Ear: Tympanic membrane, ear canal and external ear normal. Left Ear: Tympanic membrane, ear canal and external ear normal. Nose: Nose normal. Mouth/Throat: Mouth: Mucous membranes are moist. Eyes: Pupils: Pupils are equal, round, and reactive to light. Cardiovascular: Rate and Rhythm: Normal rate and regular rhythm. Pulses: Normal pulses. Heart sounds: Normal heart sounds. Pulmonary: Effort: Pulmonary effort is normal. Breath sounds: Normal breath sounds. Abdominal: General: Bowel sounds are normal. Palpations: Abdomen is soft. Musculoskeletal: General: Normal range of motion. Cervical back: Normal range of motion. Skin: General: Skin is warm and dry. Capillary Refill: Capillary refill takes less than 2 seconds. Neurological: General: No focal deficit present. Mental Status: He is alert and oriented to person, place, and time. Psychiatric: Mood and Affect: Mood normal. ASSESSMENT/PLAN Diagnoses and all orders for this visit: Chronic obstructive pulmonary disease, unspecified COPD type (CMS/HCC) - Vgcgazrdpgs-Utslhreyl-Gshcrv (Trelegy Ellipta) 100-62.5-25 MCG/ACT aerosol powder ; Inhale 1 puff Daily Person consulting for explanation of examination or test finding Alcoholic liver disease, unspecified (CMS/HCC) Atherosclerosis of aorta (CMS/HCC) 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) - levothyroxine (Synthroid, Levoxyl) 100 MCG tablet; Take 1 tablet (100 mcg) by mouth in the morning. Take before meals. Current moderate episode of major depressive disorder without prior episode (HCC) (CMS/HCC) - QUEtiapine (SEROquel) 100 MG tablet; Take 1 tablet in the morning and 2 tablets at night FOLLOW-UP Follow up in about 6 months (around 09/14/2024) for Next scheduled follow-up: CIM. documented in this encounter [facility] 03-17-2024 Instructions Marilu Bonner NP - 03/17/2024 2:00 PM EST PATIENT EDUCATION: COPD Possible complications of COPD include increased risk of respiratory failure, hospitalization and . COPD management goals are to maintain a healthy weight with a BMI of less than 26, prevent future hospitalizations by using your medications as prescribed, and avoid environments with smoke exposure. It is important to increasing activity levels, maintain compliance of medications, and following a healthier diet. Depression Discussed side effects of medications. Notify physician's office if worsening depression, suicidal thoughts, and allergic reactions. Avoid use of other drugs, including alcohol. It may take 4-6 weeks before seeing improvement of symptoms. Do not stop medication abruptly to avoid serotonin withdrawal symptoms. There are a number of treatments for depression including psychotherapy, support groups, and psychiatric antidepressant medications. Try to get 8 hours of sleep per night. A lack of sleep increases risk for mental disturbances of all kinds. Daily exercise is recommended; exercise naturally increases the concentration of neurotransmitters such as serotonin. Build loving and accepting family/friend relationships. Use positive psychology. Meditation can be helpful because it calms and relaxes both the mind and body. There are many books, internet articles and free apps that you can download to guide you in meditation exercises. Hypothyroidism The symptoms of hypothyroidism include fatigue, weakness, weight gain, muscle aches, constipation, depressed mood, dry skin, intolerance of cold temperatures, and heavy menstrual periods. Since absorption of this medication is increased on an empty stomach, take your thyroid medicine on an empty stomach 60 minutes before breakfast. Do not stop taking the medication even if you feel better. Do not take your thyroid medication at the same time as fiber supplements, calcium, iron, multivitamins, or aluminum hydroxide antacids or any medications that bind bile acids. Take your thyroid medication and these medications at least 4 hours apart. Continue with diet and exercise. Repeat labs in specified time frame as discussed during your appointment. Patient understands treatment plan. documented in this encounter [facility] 02-18-2024 History and physical note Note Date/Time February 18, 2024 12:43pm [facility] [address] [place] [address] Gastroenterology H&P Signed Patient: Kirill Echols MR#: [id number] : 1965 Acct:[id number] Age/Sex: 58 / M Adm Date: 4 Loc: Room: Type: [facility] Attending Dr: Cathi Miranda DO Copies to: MD Cathi Eason DO~ Date of Service: 02/18/2024 HISTORY & PHYSICAL: Patient's history with special attention to the cardiovascular, pulmonary systems and the current problem was reviewed with the patient immediately prior to the procedure. Present medications and doses reviewed in the EMR. Allergies and pertinent laboratory tests were also reviewedat this time in the EMR. The physical examination, as below, was then performed. Indication, assessment and HPI: 58-year-old male who presents for EGD and colonoscopy for GERD, abdominal pain, chronic constipation, weight loss, family history of colon cancer in his father. Last colonoscopy was about 6 or 7 years ago per patient. Family history of GI malignancy? Family history of colon cancer in his father PHYSICAL EXAMINATION General appearance: cooperative, NAD Skin: No jaundice, no rash or lesions Head: NCAT Eyes: Anicteric Neck: Supple Lungs: Normal respiratory effort, no use of accessory muscles Abdomen: Soft, nondistended Neuro: No focal deficits, Ox3. REVIEW OF SYSTEMS Constitutional: Denies malaise, fevers Cardiovascular: Denies chest pain, palpitations Respiratory: Denies shortness of breath, wheezing Gastrointestinal: As per HPI Genitourinary: Denies dysuria, polyuria Musculoskeletal: Denies joint swelling, joint stiffness Neurological: Denies confusion, numbness, tingling Endocrine: Denies fatigue Written informed consent obtained from the patient. Risks (including but not limited to perforation, infection, bloating, bleeding, need for emergent surgeryand loss of life), benefits and alternatives explained and questions answered. The patient verbalized understanding. Based on history patient is an appropriate candidate for the procedure. Cathi Miranda DO Present medication and doses reviewed in the EMR Documented By: Cathi Miranda DO 02/18/24 1242 Signed By: <Electronically signed by Cathi Miranda DO> 02/18/24 1243 [facility] Work Phone: [phone] Procedure [facility]10-07-2024 Procedure [facility]09-23-2024 Instructions* Patient Instructions* Marilu Bonner, ELLE - 02/04/2024 1:20 PM EDT PATIENT EDUCATION: ER follow-up The patient was seen today in follow-up of recent hospital ER/UC visit. All available records/labs/diagnostics were reviewed and discussed with the patient. ER/UC discharge meds were reviewed. Any changes to plan are noted above. Constipation Encouraged to be as active as possible to help with intestinal motility. Get at least 30 minutes ofexercise on most days of the week. Consume adequate fiber in diet such as vegetables, fruits, beans, whole grains, and nuts as well as OTC bars/supplements. Encouraged to have a fiber snack daily to maintain good motility. Encouraged to drink plenty of fluids, enough so that your urine is light yellow or clear like water. 50/50 mixture of prune juice and apple juice daily is another natural wayto promote motility. Schedule a time each day for a bowel movement. A daily routine may help. Take your time having your bowel movement. Recommend probiotic use. Avoid laxative use. Call if no reliefas other options may be available. Depression Discussed side effects of medications. Notify physician's office if worsening depression, suicidal thoughts, and allergic reactions. Avoid use of other drugs, including alcohol. It may take 4-6 weeksbefore seeing improvement of symptoms. Do not stop medication abruptly to avoid serotonin withdrawal symptoms. There are a number of treatments for depression including psychotherapy, support groups,and psychiatric antidepressant medications. Try to get 8 hours of sleep per night. A lack of sleep increases risk for mental disturbances of all kinds. Daily exercise is recommended; exercise naturally increases the concentration of neurotransmitters such as serotonin. Build loving and accepting family/friend relationships. Use positive psychology. Meditation can be helpful because it calms and relaxes both the mind and body. There are many books, internet articles and free apps that you can download to guide you in meditation exercises. documented in this encounterSaint [facility]'s [facility] Health [id number] History of Present illness Narrative* Marilu Bonner NP - 01/21/2024 2:00 PM EDT Images from the original note were not included. SUBJECTIVE Kirill Echols is a 58 y.o. male who presents for an annual medicare wellness exam. CURRENT MEDICATIONS Current Outpatient Medications: acetaminophen (Tylenol) 325 MG tablet, 650 mg Orally Q 8 hrs as needed, Disp: , Rfl: cyanocobalamin (Vitamin B-12) 1000 MCG tablet, Take 1,000 mcg by mouth Daily, Disp: , Rfl: Rcxxkysiewb-Ddliyvepy-Ryskye (Trelegy Ellipta) 100-62.5-25 MCG/ACT aerosol powder , Inhale 1 puff Daily, Disp: 1 each, Rfl: 5 levothyroxine (Synthroid, Levoxyl) 100 MCG tablet, Take 1 tablet (100 mcg) by mouth in the morning.Take before meals., Disp: 90 tablet, Rfl: 1 melatonin 3 MG tablet, Take 1 tablet (3 mg) by mouth as needed at bedtime for sleep, Disp: 90 tablet, Rfl: 3 QUEtiapine (SEROquel) 100 MG tablet, Take 1 tablet in the morning and 2 tablets at night, Disp: 90 tablet, Rfl: 11 sodium chloride 1 g tablet, Take 1 g by mouth in the morning and 1 g in the evening and 1 g before bedtime., Disp: , Rfl: Aspirin Low Dose 81 MG EC tablet, Take 81 mg by mouth in the morning. as directed., Disp: , Rfl: nitroglycerin (Nitrostat) 0.4 MG SL tablet, 1 (one) time each day at the same time., Disp: , Rfl: omeprazole OTC (PriLOSEC OTC) 20 MG EC tablet, Take 1 tablet (20 mg) by mouth in the morning and 1 tablet (20 mg) before bedtime. Do not crush, chew, or split.. (Patient not taking: Reported on 01/21/2024), Disp: 180 tablet, Rfl: 0 RECENT VITAL SIGNS 10/04/2023 3:09 PM 11/12/2023 3:07 PM 12/03/2023 2:11 PM 12/25/2023 1:00 PM 01/10/2024 2:14 PM 01/15/2024 1:54 PM 01/21/2024 1:53 PM Vitals BMI 19.94 kg/m2 21.13 kg/m2 20.05 kg/m2 18.44 kg/m2 18.85 kg/m2 19.12 kg/m2 18.85 kg/m2 BSA (m2) 1.84 m2 1.9 m2 1.84 m2 1.77 m2 1.79 m2 1.8 m2 1.79 m2 Systolic 96 128 126 110 133 122 132 Diastolic 62 84 78 82 84 74 78 Heart Rate 94 89 84 116 74 99 108 SpO2 97 % 99 % 100 % 93 % 88 % 97 % 98 % Temp 98.4 F 98.3 F 97.3 F 97.2 F 96.3 F 98.2 F Resp 16 16 Height (in) 6' 6' 6' 6' 6' 6' 6' Weight (lb) 147 155.8 147.8 136 139 141 139 Visit Report Report Report Report Report Report Report RECENT LABS Recent Results (from the past 1008 hour(s)) URINE CULTURE, ROUTINE Collection Time: 12/14/23 4:20 PM Result Value Ref Range URINE CULTURE, ROUTINE Urine Culture, Routine URINE CULTURE, ROUTINE Culture shows less than 10,000 colony forming units of bacteria per URINE CULTURE, ROUTINE milliliter of urine. This colony count is not generally considered URINE CULTURE, ROUTINE to be clinically significant. URINE CULTURE, ROUTINE Performed at: [facility] URINE CULTURE, ROUTINE [address] [place], [place] [id number] URINE CULTURE, ROUTINE Pigment Supplier: Fernando Brand PhD, Phone: [phone] BLOOD CULTURE 1 Collection Time: 12/15/23 5:03 PM Result Value Ref Range BLOOD CULTURE 1 Blood Culture 1 NG5D NO GROWTH AT 5 DAYS.^NO GROWTH AT 5 DAYS. BLOOD CULTURE 2 Collection Time: 12/15/23 5:50 PM Result Value Ref Range BLOOD CULTURE 2 Blood Culture 2 NG5D NO GROWTH AT 5 DAYS.^NO GROWTH AT 5 DAYS. Urine culture (clean catch) Collection Time: 12/25/23 12:00 AM Specimen: Urine, Clean Catch Result Value Ref Range MICRO NUMBER [id number] SPECIMEN QUALITY Adequate SOURCE: (QUEST) URINE, CLEAN CATCH STATUS FINAL RESULT SEE NOTE POCT urinalysis dipstick manually resulted Collection Time: 12/25/23 1:35 PM Result Value Ref Range Color, UA Yellow Clarity, UA Clear Glucose, UA Negative Negative - 2000(110) ++++ mg/dL Bilirubin, UA Negative Negative - 4(70) +++ mg/dL Ketones, UA Negative Negative - 160(16) ++++ mg/dL Spec Grav, UA 1.015 1 - 1.03 Blood, UA Positive Negative - 50 Alhaji/mcL pH, UA 6.0 5 - 9 Protein, UA Positive Negative - 2000(20) ++++ mg/dL Urobilinogen, UA 0.2 0.2 - 12 mg/dL Leukocytes, UA Moderate Negative - 500+++ Mc/mcL Nitrite, UA Negative Negative - Positive OBJECTIVE Physical Exam Vitals and nursing note reviewed. Constitutional: Appearance: Normal appearance. He is normal weight. HENT: Head: Normocephalic and atraumatic. Right Ear: Tympanic membrane, ear canal and external ear normal. Left Ear: Tympanic membrane, ear canal and external ear normal. Nose: Nose normal. Mouth/Throat: Mouth: Mucous membranes are moist. Eyes: Pupils: Pupils are equal, round, and reactive to light. Cardiovascular: Rate and Rhythm: Normal rate and regular rhythm. Pulses: Normal pulses. Heart sounds: Normal heart sounds. Pulmonary: Effort: Pulmonary effort is normal. Breath sounds: Normal breath sounds. Abdominal: General: Bowel sounds are normal. Palpations: Abdomen is soft. Musculoskeletal: General: Normal range of motion. Cervical back: Normal range of motion. Skin: General: Skin is warm and dry. Capillary Refill: Capillary refill takes less than 2 seconds. Neurological: General: No focal deficit present. Mental Status: He is alert and oriented to person, place, and time. Psychiatric: Mood and Affect: Mood normal. ASSESSMENT/PLAN Diagnoses and all orders for this visit: Encounter for annual wellness visit (AWV) in Medicare patient FOLLOW-UP Follow up in about 3 months (around 04/21/2024) for Next scheduled follow-up. documented in this encounterSaint John's [facility] Health [id number] Instructions* Patient Instructions* Marilu Bonner NP - 01/21/2024 2:00 PM EDT PATIENT EDUCATION: Medicare wellness Patient here for annual Medicare Wellness visit. Demographics were updated. Self-assessment was completed. Past medical, family and social history were updated. The medication list, including supplements being taken, was updated. A list of other current medical providers was established/updated. Time was spent discussing health maintenance issues, ordering proper testing, and schedule was provided regarding recommended screening. We discussed safety issues and fall risk. Depression screening was completed and addressed. Cognitive function was assessed by direct observation and assessment of ability to perform ADL's and IADL's was done. We also discussed Advanced Directives and code status. The current BMI was provided along with an education packet regarding healthy living and maintenanceof a healthy weight. The BMI will cont to be monitored at routine office visits as well. Major riskfactors for chronic disease including family history were discussed . documented in this encounterSaint John's Regional Health [id number] Instructions* Patient Instructions* Marilu Bonner NP - 01/15/2024 2:00 PM EDT PATIENT EDUCATION: HOSPITAL FOLLOW-UP Reviewed hospital records including labs, imaging, procedure and consult notes. Overall patient is feeling better and is encouraged to keep follow-up appointments with specialists as scheduled. Patient voices no further concerns at this time. Insomnia 1) Cognitive behavioral therapy is beneficial in identifying the underlying cause of insomnia. 2) Sleep hygiene and relaxation techniques. Sleep hygiene involves the development of habits conducive to sleep, such as maintaining regular bedtimes and rise times, avoiding daytime naps, avoiding alcohol and electronic devices before bedtime, and avoiding caffeine. Progressive relaxation therapy involves the tensing and relaxation of muscles systematically from head to toe. Guided imagery and meditation instructs you how to replace anxiety-ridden thoughts with pleasant, restful imagery. Musicinterventions, notably music-associated relaxation and listening to music, have been reported to improve sleep for adults with insomnia unrelated to underlying health conditions. 3) No blue screens an hour prior to lying down. Patient advised to take medication as directed, andto call office if no relief occurs. 4) Follow up as discussed to assess medication efficacy. OARRS reviewed. Avoiding mixing hypnotics with other controlled substances, muscle relaxers, alcohol and drugs as the risk for overdose increases substantially. Patient verbalized understanding and will attempt to do as instructed. GERD Discussed life-style modifications to reduce acid reflux. Avoid eating 2-3 hours prior to bed time,avoid spicy, greasy, high fat foods. Elevate head of bed when possible or elevate head on multiple pillows. Continue with current drug therapy, if symptoms begin to break through, call office for GI referral. Patient encouraged to also use ProBiotics for any bowel changes. Constipation Encouraged to be as active as possible to help with intestinal motility. Get at least 30 minutes ofexercise on most days of the week. Consume adequate fiber in diet such as vegetables, fruits, beans, whole grains, and nuts as well as OTC bars/supplements. Encouraged to have a fiber snack daily to maintain good motility. Encouraged to drink plenty of fluids, enough so that your urine is light yellow or clear like water. 50/50 mixture of prune juice and apple juice daily is another natural wayto promote motility. Schedule a time each day for a bowel movement. A daily routine may help. Take your time having your bowel movement. Recommend probiotic use. Avoid laxative use. Call if no reliefas other options may be available. documented in this encounterSaint John's Regional Health [id number] History of Present illness Narrative* Ophelia James, DO - 01/10/2024 2:30 PM EDT Images from the original note were not included. Kirill Echols presents today for shortness of breath. He was referred by his primary care physician's office. He does give a history of small-cell lung cancer that was diagnosed in 2019. Was treated at that time and remains in remission. He does continue to follow with Oncology routinely. He does complain of shortness of breath that has been present for many years. This has been gradually worsening. He does also note some chest tightness with exertion as well. He denies complaints of chest painor palpitations. He denies any fevers, chills, or sweats. Was started on Advair by his primary carephysician's office, but states this is not changes symptoms very much. He does also use albuterol on as needed basis. He was recently hospitalized for constipation. He states he just got out of the hospital. He does have some additional doctor's appointments today as well. He denies any other complaints at this time. He did have imaging as well as PFTs performed prior to today's office visit. Allergies Allergen Reactions Chlordiazepoxide Swelling Edema Lisinopril Swelling Swelling of Lip/Tongue/Throat Sertraline Swelling Swelling of Lip/Tongue/Throat Current Outpatient Medications Medication Sig Dispense Refill acetaminophen (Tylenol) 325 MG tablet 650 mg Orally Q 8 hrs as needed amLODIPine (Norvasc) 5 MG tablet Aspirin Low Dose 81 MG EC tablet Take 81 mg by mouth in the morning. as directed. cyanocobalamin (Vitamin B-12) 1000 MCG tablet Take 1,000 mcg by mouth Daily folic acid (Folvite) 1 MG tablet levothyroxine (Synthroid, Levoxyl) 100 MCG tablet Take 1 tablet (100 mcg) by mouth in the morning. Take before meals. 90 tablet 1 melatonin 3 MG tablet Take 1 tablet (3 mg) by mouth as needed at bedtime for sleep 90 tablet 0 nitroglycerin (Nitrostat) 0.4 MG SL tablet 1 (one) time each day at the same time. ondansetron (Zofran) 4 MG tablet 1 (one) time each day at the same time. pantoprazole (ProtoNix) 40 MG EC tablet Take 40 mg by mouth in the morning. Take before meals. QUEtiapine (SEROquel) 100 MG tablet Take 1 tablet in the morning and 2 tablets at night 90 tablet 11 sodium chloride 1 g tablet Take 1 g by mouth in the morning and 1 g in the evening and 1 g before bedtime. Fluticasone-Salmeterol (Advair Diskus) 250-50 MCG/ACT aerosol powder Use 1 puff in the mouth or throat every 12 (twelve) hours 60 each 2 No current facility-administered medications for this visit. Past Medical History: Diagnosis Date Abdominal pain 11/08/2023 Acute alcoholism ([facility]) 11/08/2023 Acute hypokalemia 11/08/2023 Adenopathy 11/08/2023 Adverse reaction to LUIS inhibitor drug 11/08/2023 Alcoholism ([facility]) 10/2017 [facility] Altered mental status 11/08/2023 Amnesia 11/08/2023 Anemia 11/08/2023 Chemical dependency ([facility]) Chest pain 02/25/2020 NSTEMI Chronic nausea 11/08/2023 Costochondral junction syndrome 12/21/2023 Counseling regarding advanced directives 11/08/2023 Depression with anxiety Diarrhea 11/08/2023 Edema 11/08/2023 Gastrointestinal hemorrhage associated with peptic ulcer Heart disease HTN (hypertension) (CMS/HCC) Hyperinflation of lungs Hyponatremia Hyposmolality syndrome 12/21/2023 Hypothyroidism (CMS/HCC) 12/21/2023 Insomnia Internal hemorrhoids Joint pain 11/08/2023 Left inguinal hernia Neck pain 11/08/2023 Pain due to neoplasm 11/08/2023 Pancreatitis 2017 Pneumothorax 11/08/2023 Prostatitis Pyuria 11/08/2023 Recurrent acute pancreatitis Septicemia due to E. coli (HCC) ([facility]) 01/02/2024 Shortness of breath 11/08/2023 Small cell lung cancer in adult ([facility]) Smoker Suicidal ideation 11/08/2023 Tachycardia 11/08/[address] 11/08/2023 TOS (thoracic outlet syndrome) Urinary retention with incomplete bladder emptying 11/08/2023 Vomiting 11/08/2023 Weight loss 11/08/2023 Past Surgical History: Procedure Laterality Date COLONOSCOPY 10/24/2017 HERNIA REPAIR Left 05/10/2020 inguinal hernia VASECTOMY 1993 WRIST SURGERY Right 2002 Family History Problem Relation Name Age of Onset Diabetes Mother Hypertension Mother Cancer Mother Heart disease Father Cancer Father Diabetes Brother No Known Problems Daughter Social History Tobacco Use Smoking status: Former Types: Cigars, Cigarettes Passive exposure: Never Smokeless tobacco: Never Substance Use Topics Alcohol use: Yes Alcohol/week: 12.0 standard drinks of alcohol Types: 12 Cans of beer per week Comment: He drinks a 6 pack in 3 days BP 133/84 (BP Location: Left arm, Patient Position: Sitting) Pulse 74 Ht 6' Wt 139 lb SpO2 (!) 88% BMI 18.85 kg/m Exam: Heart: regular rate Lungs: clear to auscultation bilaterally, no wheezes/rales/rhonchi, no resp distress Extremities: no edema noted, no visible rashes Neuro: alert, oriented x3 Imaging Reviewed: Echocardiogram from December 2023 reviewed--normal LV size and function, LVEF 60 %, moderately dilated right ventricle with moderately reduced systolic function, RVSP 44 mm of mercury, no pericardial effusion PFT's from September 2023 reviewed Report of PET scan from June 2023 reviewed--no hypermetabolic region of uptake seen to suggest FDG avid malignancy Assessment/Plan: COPD -- patient does have a history of COPD. He does have emphysematous changes noted on imaging. At this time he is currently using Advair but does continue with significant symptoms. We discussed adjusting his inhaled regimen. He will continue with albuterol on an as-needed basis. I did send a prescription for Trelegy into the pharmacy for him at today's office visit. He was also given samples and instructed on use of the inhaler. Begin using this once daily as opposed to Advair. He will follow here in a few months time to reassess his symptoms. He did also have some low saturations with exertion today. We discussed the use of oxygen. He will have a comprehensive oxygen study performed prior to his next office visit. If he does qualify for oxygen then this will be initiated. Elevated right-sided pulmonary pressures -- his echocardiogram did demonstrate evidence of elevatedright-sided pulmonary pressures. This may be secondary to his COPD as well as his underlying hypoxia. Once this is adequately treated then we can re-evaluate his pulmonary pressures. Follow up in about 2 months (around 03/11/2024) for COPD. Ophelia James DO documented in this encounterSaint John's Regional Health [id number] History of Present illness Narrative* Rylan Andrea MD - 12/25/2023 1:00 PM EDT CHIEF COMPLAINT Pt states that he has not been able to eat. He has lost is apatite. Pt is also have diarrhea. SUBJECTIVE History of Present Illness The patient presents for hospital follow-up. He is accompanied by an adult female. He was hospitalized for a few days due to a urinary tract infection, which led to sepsis due to E. coli. He was treated with IV Rocephin and then switched to oral Ceftin. He also reports rib pain saul burning sensation during urination. His appetite has decreased, although he can consume water andGatorade. He experiences nausea and has lost 19 pounds since 11/12/2023. He has started drinking Ensure and tolerates milk well. He denies any white spots on his tongue. He suspects his cancer has returned. He also reports a sensation of clogged ears and has been attempting to pop his ears. He alsonotes occasional ankle swelling. CURRENT MEDICATIONS Current Outpatient Medications: acetaminophen (Tylenol) 325 MG tablet, 650 mg Orally Q 8 hrs as needed, Disp: , Rfl: amLODIPine (Norvasc) 5 MG tablet, , Disp: , Rfl: Aspirin Low Dose 81 MG EC tablet, Take 81 mg by mouth in the morning. as directed., Disp: , Rfl: cyanocobalamin (Vitamin B-12) 1000 MCG tablet, Take 1,000 mcg by mouth Daily, Disp: , Rfl: Fluticasone-Salmeterol (Advair Diskus) 250-50 MCG/ACT aerosol powder , Use 1 puff in the mouth or throat every 12 (twelve) hours, Disp: 60 each, Rfl: 2 folic acid (Folvite) 1 MG tablet, , Disp: , Rfl: furosemide (Lasix) 40 MG tablet, Take 1 tablet (40 mg) by mouth Daily for 14 days, Disp: 14 tablet,Rfl: 0 levothyroxine (Synthroid, Levoxyl) 100 MCG tablet, Take 100 mcg by mouth in the morning. Take before meals., Disp: , Rfl: melatonin 3 MG tablet, Take 1 tablet (3 mg) by mouth as needed at bedtime for sleep, Disp: 90 tablet, Rfl: 0 nitroglycerin (Nitrostat) 0.4 MG SL tablet, 1 (one) time each day at the same time., Disp: , Rfl: ondansetron (Zofran) 4 MG tablet, 1 (one) time each day at the same time., Disp: , Rfl: pantoprazole (ProtoNix) 40 MG EC tablet, Take 40 mg by mouth in the morning. Take before meals., Disp: , Rfl: QUEtiapine (SEROquel) 100 MG tablet, Take 1 tablet in the morning and 2 tablets at night, Disp: 90 tablet, Rfl: 11 RECENT VITAL SIGNS 01/03/2023 10:53 AM 04/12/2023 1:49 PM 08/16/2023 1:36 PM 09/11/2023 1:52 PM 10/04/2023 3:09 PM 11/12/2023 3:07 PM 12/03/2023 2:11 PM Vitals BMI 20.53 kg/m2 20.15 kg/m2 19.94 kg/m2 20.7 kg/m2 19.94 kg/m2 21.13 kg/m2 20.05 kg/m2 BSA (m2) 1.87 m2 1.85 m2 1.84 m2 1.87 m2 1.84 m2 1.9 m2 1.84 m2 Systolic 118 126 116 132 96 128 126 Diastolic 78 70 70 84 62 84 78 Heart Rate 106 76 109 104 94 89 84 SpO2 99 % 90 % 98 % 98 % 97 % 99 % 100 % Temp 97.8 F 97.9 F 96.8 F 98.2 F 98.4 F 98.3 F 97.3 F Resp 16 16 Height (in) 6' 6' 6' 6' 6' 6' Weight (lb) 151.4 148.6 147 152.6 147 155.8 147.8 Visit Report Report Report Report Report Report Report Report RECENT LABS Recent Results (from the past 1008 hour(s)) URINE CULTURE, ROUTINE Collection Time: 12/14/23 4:20 PM Result Value Ref Range URINE CULTURE, ROUTINE Urine Culture, Routine URINE CULTURE, ROUTINE Culture shows less than 10,000 colony forming units of bacteria per URINE CULTURE, ROUTINE milliliter of urine. This colony count is not generally considered URINE CULTURE, ROUTINE to be clinically significant. URINE CULTURE, ROUTINE Performed at: [facility] URINE CULTURE, ROUTINE [address], [place] [id number] URINE CULTURE, ROUTINE Pigment Supplier: Fernando Brand PhD, Phone: [phone] BLOOD CULTURE 1 Collection Time: 12/15/23 5:03 PM Result Value Ref Range BLOOD CULTURE 1 Blood Culture 1 NG5D NO GROWTH AT 5 DAYS.^NO GROWTH AT 5 DAYS. BLOOD CULTURE 2 Collection Time: 12/15/23 5:50 PM Result Value Ref Range BLOOD CULTURE 2 Blood Culture 2 NG5D NO GROWTH AT 5 DAYS.^NO GROWTH AT 5 DAYS. OBJECTIVE Physical Exam Physical Exam Patient is a well-nourished, well-developed white-black male. Head is normocephalic and atraumatic. Ears are clear. Nose and throat are within normal limits. Neck is supple with no JVD. Carotids are symmetrical without bruit. Lungs are clear to auscultation and percussion. Heart has a regular rate and rhythm without murmurs, gallops. Abdomen shows tenderness to palpation to the right lower quadrant with severe tenderness upon palpation. Extremities show no cyanosis, clubbing, or edema. Pulses are 2+ bilaterally, dorsalis pedis pulse is 2+. Vital Signs Weight is 136 pounds. ASSESSMENT/PLAN Problem List Items Addressed This Visit Circulatory Essential hypertension (CMS/HCC) - Primary Blood pressure looks good today. Home BP checks have been doing well. Continue lifestyle modifications to include minimizing salt and alcohol, exercising regularly, and keeping weight down. Continue current medications. Digestive GERD (gastroesophageal reflux disease) Denies any symptoms at this time. Continue current regimen. 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 All questions were ansered. Relevant Medications levothyroxine (Synthroid, Levoxyl) 100 MCG tablet Nausea Stable and continue with the anti-nausea pill Generalized abdominal pain Will treat as a presumptive diverticular problem or colitis FOLLOW-UP No follow-ups on file. documented in this [facility]11-23-2023 History of Present illness Narrative* Rylan Andrea MD - 04/05/2023 8:01 PM EST Subjective Patient ID: Kirill Echols is a 57 y.o. male who presents for No chief complaint on file.. HPI Review of Systems Objective Physical Exam Assessment/Plan documented in this [facility]06-27-2023 Progress [facility] 07, 2022 11:50am Note Date/Time November 01, 2022 11:0 6am [facility] [place] [address] Hem/Onc Follow Up Note - OP Signed with Mirlande Patient: Kirill Echols MR#: [id number] : 1965 Acct:[id number] Age/Sex: 57 / M Type: REG RCR [...] nothing really new going on. HPI: 54-year-old -Greek gentleman history of smoking 40 pack years [...] overwhelming for recurrence. He lives alone in [place]. His children live in [place]. His left him 8 months ago and [...] and urinary tract. Otherwise, there is an Zcuaxz-e-Ucjg on the left. The lungs demonstrate emphysematous [...] add on appointment after ER visit at [facility] on August 29, 2022 He went [...] for coordination of care (as documented) and wvuy-dt-jgvp counseling of patient and/or family. [facility] - Medical History Medical History: Medical [...] 03/01/22 15:44 KB (Rec: 03/01/22 15:45 KB [id number]) Distress Screening Distress score of 4 or [...] BUN 8, Creatinine 0.67 L, Est GFR (CKD- EPI) > 60.0, Glucose 66 L, Calcium 8.3 [...] % (Auto) 69.5, Lymph % (Auto) 15.0, Hand % (Auto) 12.1, Eos % (Auto) 2.6, Baso % (Auto) 0.8, Nucleat RBC Rel Count 0.2, Neut # (Auto) 4.1, Lymph # (Auto) 0.9 L, Hand # (Auto) 0.7, Eos # (Auto) 0.1, [...] <Electronically signed by ERINN Shane> 11/07/22 1149 [facility] Work Phone: 1([phone]) 923-490405-23-2023 Hospital Discharge instructionsAmbulatory Orders* Initiate Home Health Time Frame: 1 Day, Location: Determined By Patient * Oncology Histology Time Frame: 10/03/22, Location: Determined By Patient * Oncology Histology Time Frame: 10/17/22, Location: Determined By Patient * Oncology Histology Time Frame: 10/10/22, Location: Determined By Patient [facility] Work Phone: 1([phone]) 290-756005-09-2023 Progress note Author Estela Varma [facility] September 19, 2022 10:02am Note Date/Time September 19, 2022 9:50am [facility] at [address] [address] Hem/Onc Follow Up Note - OP Signed Patient: Kirill Echols MR#: [id number] : 1965 Acct:[id number] Age/Sex: 57 / M Type: REG RCR [...] Weight loss Follow Up Instructions: f/u wth [facility] in 6 weeks, cbc, cmp b12, folate, [...] concerns voiced at this time. HPI: 54-year-old -Greek gentleman history of smoking 40 pack years [...] overwhelming for recurrence. He lives alone in [place]. His children live in [place]. His left him 8 months ago and [...] and urinary tract. Otherwise, there is an Afqpjm-r-Vcgv on the left. The lungs demonstrate emphysematous [...] add on appointment after ER visit at [facility] on August 29, 2022 He went [...] for coordination of care (as documented) and amaf-wb-lnrg counseling of patient and/or family. [facility] - Medical History Medical History: Medical [...] 08:55 Freq: Q30D Status: Active Protocol: Document 10/19/22 15:44 KB (Rec: 03/01/22 15:45 KB [id number]) Distress Screening Distress score of 4 or [...] DAILY 09/04/22 [History Confirmed 09/19/22] Dictated By: sEtela Varma II, DO DD/ Signed By: <Electronically signed by Estela Varma II, DO> 09/19/22 1002 [facility] Work Phone: 1([phone]) 388-885104-24-2023 Progress note Author Dixie Olivia [facility] September 04, 2022 12:17pm Note Date/Time September 04, 2022 12: 04pm [facility] [place] [address] Hem/Onc Follow Up Note - OP Signed Patient: Kirill Echols MR#: [id number] : 1965 Acct:[id number] Age/Sex: 57 / M Type: REG RCR Copies to: MD Rylan Vega MD~ Subjective Date/Time of Service: Date of Service: 09/04/2022 Time of Service: 11:56 Chief Complaint: Patient is here today for a follow up visit for small cell lung cancer. He went to [place] ER for chest pressure 08-27-[address] scan for review HPI: 54-year-old -Greek gentleman history of smoking 40 pack years [...] overwhelming for recurrence. He lives alone in [place]. His children live in [place]. His left him 8 months ago and [...] and urinary tract. Otherwise, there is an Edzdnd-f-Zqlm on the left. The lungs demonstrate emphysematous [...] He is considering moving back down to [facility] where he is from. 02/27/22 he [...] add on appointment after ER visit at [facility] on August 29, 2022 He went [...] Narrative: Residual and chronic left-sided chest complaints. [facility] - Medical History Medical History: Medical [...] 03/01/22 15:44 KB (Rec: 03/01/22 15:45 KB [id number]) Distress Screening Distress score of 4 or [...] health is draining this...next follow up with [facility] next week. - pleural fluid is [...] add on appointment after ER visit at [facility] on August 29, 2022 He went [...] for coordination of care (as documented) and fvhw-vy-tzxg counseling of patient and/or family. Dictated By: Dixie Olivia APRN DD/ 1156 Signed By: <Electronically signed by ERINN Olivia> 09/04/22 1217 [facility] Work Phone: 1([phone]) 910-237902-09-2023 Progress note Author Dixie Olivia [facility] June 22, 2022 2:24pm Note Date/Time June 22, 2022 2 :16pm [facility] at [address] [address] Hem/Onc Follow Up Note - OP Signed Patient: Kirill Echols MR#: [id number] : 1965 Acct:[id number] Age/Sex: 57 / M Type: REG RCR Copies to: MD Rylan Vega MD~ Subjective Date/Time of Service: Date of Service: 06/22/2022 Time of Service: 14:09 Chief Complaint: Patient is here for a 2 month follow up with, had chest tube placed 06/16/2022. No concerns voiced at this time. HPI: 54-year-old -Greek gentleman history of smoking 40 pack years [...] overwhelming for recurrence. He lives alone in [place]. His children live in [place]. His left him 8 months ago and [...] and urinary tract. Otherwise, there is an Ggwbfz-v-Jakh on the left. The lungs demonstrate emphysematous [...] He is considering moving back down to [facility] where he is from. 02/27/22 he [...] diaphoresis. No orthostasis or dizziness or palpitations. [facility] - Medical History Medical History: Medical History (Last Updated 06/16/22 @ 20:08 by Jackie Fraga, ANP-) Adverse reaction to LUIS inhibitor drug Anemia [...] 03/01/22 15:44 KB (Rec: 03/01/22 15:45 KB [id number]) Distress Screening Distress score of 4 or [...] for coordination of care (as documented) and nfjd-wp-itge counseling of patient and/or family. Dictated By: Dixie Olivia APRN DD/ 1409 Signed By: <Electronically signed by ERINN Olivia> 06/22/22 1424 [facility] Work Phone: 1(785) 757-634002-02-2023 Evaluation note* Encounter Date Diagnosis Assessment Notes [...] cell carcinoma of lung (ICD-10 - C34.90) [employer] Other 01-18-2023 Evaluation note* Encounter Date Diagnosis Assessment Notes Treatment Notes Treatment Clinical Notes May, Small cell carcinoma of lung (ICD-10 - C34.90) Please let me know lung CT scan to review schedule thoracentesis if needed May, Chronic obstructive pulmonary disease, unspecified COPD type (ICD-10 - J44.9) May, Shortness of breath (ICD-10 - R06.02) May, Pleural effusion (ICD-10 - J90) [employer] Other 12-02-2022 Progress note Author Estela Varma [facility] April 14, 2022 12:02pm Note Date/Time April 14, 2022 1 1:50am [facility] at [address] [address] Hem/Onc Follow Up Note - OP Signed Patient: Kirill Echols MR#: [id number] : 1965 Acct:[id number] Age/Sex: 56 / M Type: REG RCR [...] concerns voiced at this time. HPI: 54-year-old -Greek gentleman history of smoking 40 pack years [...] overwhelming for recurrence. He lives alone in [place]. His children live in [place]. His left him 8 months ago and [...] and urinary tract. Otherwise, there is an Bdjiau-k-Jguq on the left. The lungs demonstrate emphysematous [...] He is considering moving back down to [facility] where he is from. 02/27/22 he [...] for coordination of care (as documented) and vgcc-zy-oipv counseling of patient and/or family. [facility] - Medical History Medical History: Medical [...] 03/01/22 15:44 KB (Rec: 03/01/22 15:45 KB [id number]) Distress Screening Distress score of 4 or [...] % (Auto) 71.4, Lymph % (Auto) 16.2, Hand % (Auto) 8.6, Eos % (Auto) 2.9, Baso % (Auto) 0.9, Neut # (Auto) 4.5, Lymph # (Auto) 1.0, Hand # (Auto) 0.5, Eos# (Auto) 0.2, Baso [...] by Estela Varma II, DO> 04/14/22 1202 [facility] Work Phone: [phone]) 263-270710-17-2022 Progress note Author Estela Varma [facility] February 27, 2022 2:56pm Note Date/Time February 27, 2022 2 :51pm [facility] [place] [address] Hem/Onc Follow Up Note - OP Signed Patient: Kirill Echols MR#: [id number] : 1965 Acct:[id number] Age/Sex: 56 / M Type: REG RCR [...] for review. No concerns voiced. HPI: 54-year-old -Greek gentleman history of smoking 40 pack years [...] overwhelming for recurrence. He lives alone in [place]. His children live in [place]. His left him 8 months ago and [...] and urinary tract. Otherwise, there is an Thcpcs-b-Gonp on the left. The lungs demonstrate emphysematous [...] He is considering moving back down to [facility] where he is from. 02/27/22 he [...] for coordination of care (as documented) and uffe-eg-rgvz counseling of patient and/or family. [facility] - Medical History Medical History: Medical [...] 09/14/21 14:56 KB (Rec: 09/14/21 14:59 KB [id number]) Distress Screening Distress score of 4 or more discussed Yes with patient? Distress screening follow up: Spoke with patient via phone. Patient is doing ok at this time. Recently had a heart cath which was negative. He is happpy that his scans are good. Dr. Perez is working on getting him into [facility]. - Lab Results Diagram of Most [...] by Estela Varma II, DO> 02/27/22 1456 [facility] Work Phone: [phone] Evaluation note* Encounter Date Diagnosis Assessment Notes [...] Dr. Andrea to discuss plan of care. [employer] Other 04-25-2022 Progress note Author Estela Varma [facility] September 05, 2021 6:32pm Note Date/Time September 05, 2021 12: 28pm [facility] [place] [address] Hem/Onc Follow Up Note - OP Signed Patient: Kirill Echols MR#: [id number] : 1965 Acct:[id number] Age/Sex: 56 / M Type: REG RCR [...] concerns voiced at this time. HPI: 54-year-old -Greek gentleman history of smoking 40 pack years [...] overwhelming for recurrence. He lives alone in [place]. His children live in [place]. His left him 8 months ago and [...] and urinary tract. Otherwise, there is an Civfeh-z-Ikam on the left. The lungs demonstrate emphysematous [...] He is considering moving back down to [facility] where he is from. - Physical [...] for coordination of care (as documented) and ofxk-tt-esif counseling of patient and/or family. [facility] - Medical History Medical History: Medical [...] 02/02/21 13:22 KB (Rec: 02/02/21 13:23 KB [id number]) Distress Screening Distress score of 4 or [...] % (Auto) 69.0, Lymph % (Auto) 18.2, Hand % (Auto) 7.9, Eos % (Auto) 4.2, Baso % (Auto) 0.7, Neut # (Auto) 3.5, Lymph # (Auto) 0.9 L, Hand # (Auto) 0.4, Eos # (Auto) 0.2, [...] by Estela Varma II, DO> 09/05/21 1832 [facility] Work Phone: [phone]) [phone] Progress note Author Estela Varma [facility] August 22, 2021 3:19pm Note Date/Time August 22, 2021 2:5 3pm [facility] [place] [address] Hem/Onc Follow Up Note - OP Signed Patient: Kirill Echols MR#: [id number] : 1965 Acct:[id number] Age/Sex: 56 / M Type: REG RCR [...] been having shortness of breath HPI: 54-year-old -Greek gentleman history of smoking 40 pack years [...] overwhelming for recurrence. He lives alone in [place]. His children live in [place]. His left him 8 months ago and [...] for coordination of care (as documented) and tcwx-iq-xssc counseling of patient and/or family. [facility] - Medical History Medical History: Medical [...] 02/02/21 13:22 KB (Rec: 02/02/21 13:23 KB [id number]) Distress Screening Distress score of 4 or [...] % (Auto) 62.5, Lymph % (Auto) 20.1, Hand % (Auto) 11.9, Eos % (Auto) 4.8, Baso % (Auto) 0.7, Neut # (Auto) 3.0, Lymph # (Auto) 1.0, Hand # (Auto) 0.6, Eos # (Auto) 0.2, [...] signed by Estela Varma II, DO> 08/22/21 1855 [facility] Work Phone: [phone]) 606-886811-23-2021 Progress note Author George Ash [facility] April 05, 2021 12:34pm Note Date/Time April 05, 2021 12:28pm [facility] [place] [address] Hem/Onc Follow Up Note - OP Signed Patient: Kirill Echols MR#: [id number] : 1965 Acct:[id number] Age/Sex: 55 / M Type: REG RCR [...] seen cardiology and was evaluated in [place] including a stress test. Nothing ever came [...] diaphoresis. No orthostasis or dizziness or palpitations. [facility] - Medical History Medical History: Medical [...] 02/02/21 13:22 KB (Rec: 02/02/21 13:23 KB [id number]) Distress Screening Distress score of 4 or [...] % (Auto) 74.7, Lymph % (Auto) 11.7, Hand % (Auto) 10.3, Eos % (Auto) 2.5, Baso % (Auto) 0.8, Neut # (Auto) 6.1, Lymph # (Auto) 1.0, Hand # (Auto) 0.9H, Eos # (Auto) 0.2, [...] extensive work-up in the past in [place] including stress test. He has seen cardiology. [...] for coordination of care (as documented) and mxvj-ns-sqvt counseling of patient and/or family. Dictated By: George Ash MD DD/ 0306 Signed By: <Electronically signed by MD George Ash> 04/05/21 4604 [facility] Work Phone: [phone]) [phone] Progress note Author George Fanning [facility] February 08, 2021 11:42am Note Date/Time February 08, 2021 11:41am [facility] at [address] [address] Hem/Onc Follow Up Note - OP Signed Patient: Kirill Echols MR#: [id number] : 1965 Acct:[id number] Age/Sex: 55 / M Type: REG RCR [...] & no additional complaints except as documented [facility] - Medical History Medical History: Medical [...] for coordination of care (as documented) and qpmq-fh-qxch counseling of patient and/or family. Dictated By: George Ash MD DD/ 1140 Signed By: <Electronically signed by MD George Ash> 02/08/21 1142 [facility] Work Phone: [phone]) 160-583209-21-2021 Progress note Author George Ash [facility] February 01, 2021 11:20am Note Date/Time February 01, 2021 11:19am [facility] [place] [address] Hem/Onc Follow Up Note - OP Signed Patient: Kirill Echols MR#: [id number] : 1965 Acct:[id number] Age/Sex: 55 / M Type: REG RCR Copies to: MD Rylan Vega MD~ Subjective Date/Time of Service: Date of Service: 02/01/2021 Time of Service: 11:16 Chief Complaint: Patient is here today d/t pain and numbness left side of chest radiates to back. He has been to [facility] and [facility], He went to his family doctor and [...] & no additional complaints except as documented [facility] - Medical History Medical History: Medical [...] % (Auto) 76.8, Lymph % (Auto) 13.5, Hand % (Auto) 7.5, Eos % (Auto) 1.4, Baso % (Auto) 0.8, Neut # (Auto) 5.1, Lymph # (Auto) 0.9 L, Hand # (Auto) 0.5, Eos # (Auto) 0.1, [...] for coordination of care (as documented) and lsln-vo-xrot counseling of patient and/or family. Dictated By: George Ash MD DD/ 1116 Signed By: <Electronically signed by MD George Ash> 02/01/21 1125 [facility] Work Phone: [phone]) [phone] Progress note Author George Ash [facility] December 07, 2020 11:02am Note Date/Time December 07, 2020 10:4 0am [facility] [place] [address] Hem/Onc Follow Up Note - OP Signed Patient: Kirill Echols MR#: [id number] : 1965 Acct:[id number] Age/Sex: 55 / M Type: REG RCR [...] with RIGHT supraclavicular region. These may be field representative/health education of metastatic lymph nodes. There is focus [...] % (Auto) 71.8, Lymph % (Auto) 12.7, Hand % (Auto) 10.8, Eos % (Auto)3.9, Baso % (Auto) 0.8, Neut # (Auto) 4.8, Lymph # (Auto) 0.9 L, Hand # (Auto) 0.7, Eos # (Auto) 0.3, [...] getting a bone scan from Dr. Andrea. Khrishas been in the ER multiple times according him. - Time with Patient Time Spent with Patient (Follow Up Visit): 25 minutes Coordination of Care & Counseling Time: Greater than 50% of time spent with patient was for coordination of care (as documented) and nlrw-gq-jhsv counseling of patient and/or family. Dictated By: George Ash MD DD/ 1039 Signed By: <Electronically signed by MD George Ash> 12/07/20 1102 [facility] Work Phone: [phone]) [phone] Progress note Author Santhosh Chan [facility] September 09, 2020 11:30am Note Date/Time September 09, 2020 11: 21am [facility] at [address] [address] Hem/Onc Follow Up Note - OP Signed Patient: Kirill Echols MR#: [id number] : 1965 Acct:[id number] Age/Sex: 55 / M Type: REG RCR [...] for coordination of care (as documented) and lpia-ki-ogte counseling of patient and/or family. Dictated By: Santhosh Chan MD DD/ 1118 Signed By: <Electronically signed by Santhosh Chan MD> 09/09/20 1130 [facility] Work Phone: [phone]) [phone] Progress note Author Santhosh Chan [facility] September 02, 2020 11:55am Note Date/Time September 02, 2020 11: 53am [facility] [place] [address] Hem/Onc Follow Up Note - OP Signed Patient: Kirill Echols MR#: [id number] : 1965 Acct:[id number] Age/Sex: 55 / M Type: REG RCR [...] & no additional complaints except as documented [facility] - Medical History Medical History: Medical [...] for coordination of care (as documented) and rinp-ac-brbn counseling of patient and/or family. Dictated By: Santhosh Chan MD DD/ 50 Signed By: <Electronically signed by Santhosh Chan MD> 09/02/20 1155 [facility] Work Phone: 1([phone]) [phone] Progress note Author Santhosh Chan [facility] July 06, 2020 1:19pm Note Date/Time July 06, 2020 1:17pm [facility] [place] [address] Hem/Onc Follow Up Note - OP Signed Patient: Kirill Echols MR#: [id number] : 1965 Acct:[id number] Age/Sex: 55 / M Type: REG RCR [...] % (Auto) 65.3, Lymph % (Auto) 17.0, Hand % (Auto) 13.4, Eos % (Auto) 3.8, Baso % (Auto) 0.5, Neut # (Auto) 2.9, Lymph # (Auto) 0.7 L, Hand # (Auto) 0.6, Eos # (Auto) 0.2, [...] for coordination of care (as documented) and loae-bs-zpop counseling of patient and/or family. Dictated By: Santhosh Chan MD DD/ 15 Signed By: <Electronically signed by Santhosh Chan MD> 07/06/204 [facility] Work Phone: 1([phone]) 374-565002-02-2021 Progress note Author Santhosh Chan [facility] June 15, 2020 4:23pm Note Date/Time June 15, 2020 3 :28pm [facility] at [address] [address] Hem/Onc Follow Up Note - OP Signed Patient: Kirill Echols MR#: [id number] : 1965 Acct:[id number] Age/Sex: 55 / M Type: REG RCR [...] & no additional complaints except as documented [facility] - Medical History Medical History: Medical [...] % (Auto) 57.8, Lymph % (Auto) 19.4, Hand % (Auto) 16.6, Eos % (Auto) 5.5, Baso % (Auto) 0.7, Neut # (Auto) 2.1, Lymph # (Auto) 0.7 L, Hand # (Auto) 0.6, Eos # (Auto) 0.2, [...] for coordination of care (as documented) and ujer-ay-olpv counseling of patient and/or family. Dictated By: Santhosh Chan MD DD/ 1528 Signed By: <Electronically signed by Santhosh Chan MD> 06/15/20 1623 [facility] Work Phone: [phone] Progress note Author George Ash [facility] April 06, 2020 3:03pm Note Date/Time April 06, 2020 3:00pm [facility] at [address] [address] Hem/Onc Follow Up Note - OP Signed Patient: Kirill Echols MR#: [id number] : 1965 Acct:[id number] Age/Sex: 54 / M Type: REG RCR [...] PET scan. Patient: Kirill Echols MR#: [id number] : 1965 Acct:[id number] Age/Sex: 54 / M ADM Date: 0 Loc: XT Room: Type: [facility] RCR Attending Dr: George Ash MD Ordering Provider: George Ash MD Date of Service: 03/23/20 CT/CT chest w con: restaging,C34.90 ([id number]) CT/CT abdomen pelvis w con: restaging,C34.90 Copies [...] proximal great vessels. Patient has a left-sided Cjfmkp-c-Zgkd catheter. There is continued ill-defined soft tissue [...] the findings below: Patient: Kirill Echols MR#: [id number] : 1965 Acct:[id number] Age/Sex: 54 / M ADM Date: 0 Loc: Room: Type: [facility] Attending Dr: Varghese Duval MD Ordering Provider: [...] with RIGHT supraclavicular region. These may be field representative/health education of metastatic lymph nodes. There is focus [...] Franklin Gomes M.D.10/31/2019 2:44 PM Dictation Location: [facility] The patient was seen by Dr. James and evaluated by Dr. Duval. 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 [facility] - Medical History Medical History: Medical [...] for coordination of care (as documented) and jqqg-gr-vuiu counseling of patient and/or family. Dictated By: George Ash MD DD/ 1459 Signed By: <Electronically signed by MD George Ash> 04/06/20 7830 [facility] Work Phone: [phone] Progress note Author George Ash [facility] March 02, 2020 11:39am Note Date/Time March 02, 2020 1 1:38am [facility] [place] [address] Hem/Onc Follow Up Note - OP Signed Patient: Kirill Echols MR#: [id number] : 1965 Acct:[id number] Age/Sex: 54 / M Type: REG RCR [...] the findings below: Patient: Kirill Echols MR#: [id number] : 1965 Acct:[id number] Age/Sex: 54 / M ADM Date: 0 Loc: Room: Type: [facility] Attending Dr: Varghese Duval MD Ordering Provider: [...] with RIGHT supraclavicular region. These may be field representative/health education of metastatic lymph nodes. There is focus [...] Franklin Gomes M.D.10/31/2019 2:44 PM Dictation Location: [facility] The patient was seen by Dr. James and evaluated by Dr. Duval. 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 [facility] - Medical History Medical History: Medical [...] Neut % (Auto)79.5, Lymph % (Auto) 9.8, Hand % (Auto) 8.4, Eos % (Auto) 1.7, Baso % (Auto) 0.6, Neut # (Auto) 6.1, Lymph # (Auto) 0.8 L, Hand # (Auto) 0.6, Eos # (Auto) 0.1, [...] % (Auto) N/A, Lymph % (Auto) N/A, Hand % (Auto) N/A, Eos % (Auto) N/A, Baso % (Auto) N/A, Neut # (Auto) N/A, Lymph # (Auto) N/A, Hand # (Auto) N/A, Eos # (Auto) N/A, [...] for coordination of care (as documented) and vbut-am-tlzi counseling of patient and/or family. Dictated By: George Ash MD DD/ 34 Signed By: <Electronically signed by MD George Ash> 03/02/20 9936 [facility] Work Phone: [phone] Progress note Author Leoncio Kowalski [facility] February 25, 2020 3:54pm Note Date/Time February 25, 2020 2 :49pm [facility] at [place] [id number] Rad Onc Follow Up Note - OP Signed Patient: Kirill Echols MR#: [id number] : 1965 Acct:[id number] Age/Sex: 54 / M Type: REG RCR Copies to: Varghese J DerMD Rylan payne MD James E Fanning, MD~ Subjective - Service Date/Time Date: 02/25/20 Time: 14:49 - Diagnosis 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 He has chronic [...] <Electronically signed by Leoncio Kowalski MD> 02/25/20 1552 [facility] Work Phone: [phone] Progress note Author George Ash [facility] February 10, 2020 1:23pm Note Date/Time February 10, 2020 1:20pm [facility] [place] [address] Hem/Onc Follow Up Note - OP Signed Patient: Kirill Echols MR#: [id number] : 1965 Acct:[id number] Age/Sex: 54 / M Type: REG RCR [...] the findings below: Patient: Kirill Echols MR#: [id number] : 1965 Acct:[id number] Age/Sex: 54 / M ADM Date: 0 Loc: Room: Type: [facility] Attending Dr: Varghese Duval MD Ordering Provider: [...] with RIGHT supraclavicular region. These may be field representative/health education of metastatic lymph nodes. There is focus [...] Franklin Gomes M.D.10/31/2019 2:44 PM Dictation Location: [facility] The patient was seen by Dr. James and evaluated by Dr. Duval. 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 [facility] - Medical History Medical History: Medical [...] % (Auto) 71.8, Lymph % (Auto) 16.0, Hand % (Auto) 10.5, Eos % (Auto) 0.9, Baso % (Auto) 0.8, Neut # (Auto) 4.8, Lymph # (Auto) 1.1, Hand # (Auto) 0.7, Eos # (Auto) 0.1, Baso # (Auto) 0.1, Nucleated RBC % (auto) 0.1 02/04/20 08:35: WBC 13.5 H, Corrected WBC 13.5 H, RBC 3.87 L, Hgb 12.3 L, Hct 38.1 L, MCV 98.6, MCH 31.7, MCHC 32.2 L, RDW 21.3 H, Plt Count 264, MPV 7.4, Neut % (Auto) 72.3, Lymph % (Auto) 7.8, Hand % (Auto) 18.7, Eos % (Auto) 0.3, Baso % (Auto) 0.9, Neut # (Auto) 9.7 H, Lymph # (Auto) 1.1, Hand # (Auto) 2.5 H,Eos # (Auto) 0.0, [...] for coordination of care (as documented) and arjq-pf-grsv counseling of patient and/or family. Dictated By: George Ash MD DD/ 1319 Signed By: <Electronically signed by MD George Ash> 02/10/20 1322 [facility] Work Phone: [phone] Progress note Author George Ash [facility] January 20, 2020 11:30am Note Date/Time January 20, 2020 11:28am [facility] [place] [address] Hem/Onc Follow Up Note - OP Signed Patient: Kirill Echols MR#: [id number] : 1965 Acct:[id number] Age/Sex: 54 / M Type: REG RCR [...] on pro which I did add today. [facility] is following him now for palliative pain control and this is clearly better. He is off of steroids. His synovitis and arthritis have resolved. PMF - Medical History Medical History: Medical [...] for coordination of care (as documented) and obzz-js-tgai counseling of patient and/or family. Dictated By: George Ash MD DD/ 1127 Signed By: <Electronically signed by MD George Ash> 01/20/20 1130 [facility] Work Phone: [phone] Progress note Author George Ash [facility] December 30, 2019 10:35am Note Date/Time December 30, 2019 10 :01am [facility] [place] [address] Hem/Onc Follow Up Note - OP Signed Patient: Kirill Echols MR#: [id number] : 1965 Acct:[id number] Age/Sex: 54 / M Type: REG RCR [...] I have instructed him to get some iynf-psx-ovdnegr Prilosec for this. He has some type [...] the findings below: Patient: Kirill Echols MR#: [id number] : 1965 Acct:[id number] Age/Sex: 54 / M ADM Date: 0 Loc: Room: Type: [facility] Attending Dr: Varghese Duval MD Ordering Provider: [...] with RIGHT supraclavicular region. These may be field representative/health education of metastatic lymph nodes. There is focus [...] Franklin Gomes M.D.10/31/2019 2:44 PM Dictation Location: [facility] The patient was seen by Dr. James and evaluated by Dr. Duval. 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 [facility] - Medical History Medical History: Medical [...] % (Auto) N/A, Lymph % (Auto) N/A, Hand % (Auto) N/A, Eos % (Auto) N/A, Baso % (Auto) N/A, Neut # (Auto) N/A, Lymph # (Auto) N/A, Hand # (Auto) N/A, Eos # (Auto) N/A, [...] for coordination of care (as documented) and hvbu-yq-nuck counseling of patient and/or family. Dictated By: George Ash MD DD/ 0959 Signed By: <Electronically signed by MD George Ash> 12/30/19 1038 [facility] Work Phone: [phone] Progress note Author George Ash [facility] December 23, 2019 10:25am Note Date/Time December 23, 2019 10 :18am [facility] [place] [address] Hem/Onc Follow Up Note - OP Signed Patient: Kirill Echols MR#: [id number] : 1965 Acct:[id number] Age/Sex: 54 / M Type: REG RCR [...] the findings below: Patient: Kirill Echols MR#: [id number] : 1965 Acct:[id number] Age/Sex: 54 / M ADM Date: 0 Loc: Room: Type: [facility] Attending Dr: Varghese Duval MD Ordering Provider: Varghese Duval MD Date of Service: 10/31/19 PET/PET tumor init tx strat sb-mt: R91.1 R91.8 R59.1 Copies to: MD Rylan Vega MD Ward, Jeffrey S DO~ PET/CT FUSION IMAGING CLINICAL INFORMATION: Single pulmonary nodule. Abnormal lung findings. COMPARISON : CTA chest of 05/18/20 TECHNIQUE: Noncontrasted CT scan from the base of the skull to the upper thigh followed by PET imaging. Multiplanar PET/CT fusion images. The blood sugar is 109mg/dL. The F-18 FDG amount is 12.5mCi. FINDINGS: There are foci of hypermetabolism identified in the RIGHT subclavicular region and in the RIGHT paratracheal region superiorly and potentially with RIGHT supraclavicular region. These may be field representative/health education of metastatic lymph nodes. There is focus [...] Franklin Gomes M.D.10/31/2019 2:44 PM Dictation Location: [facility] The patient was seen by Dr. [...] for coordination of care (as documented) and qjon-em-wtxd counseling of patient and/or family. Dictated By: George Ash MD DD/ 1015 Signed By: <Electronically signed by MD George Ash> 12/23/19 1025 [facility] Work Phone: [phone] Progress note Author George Ash [facility] December 16, 2019 11:08am Note Date/Time December 16, 2019 11: 01am [facility] [place] [address] Hem/Onc Follow Up Note - OP Signed Patient: Kirill Echols MR#: [id number] : 1965 Acct:[id number] Age/Sex: 54 / M Type: REG RCR [...] the findings below: Patient: Kirill Echols MR#: [id number] : 1965 Acct:[id number] Age/Sex: 54 / M ADM Date: 0 Loc: Room: Type: [facility] Attending Dr: Varghese Duval MD Ordering Provider: [...] with RIGHT supraclavicular region. These may be field representative/health education of metastatic lymph nodes. There is focus [...] ofsupraclavicular node showed small cell neuroendocrine tumor. [facility] - Medical History Medical History: Medical [...] % (Auto) 33.7, Lymph % (Auto) 41.5, Hand % (Auto) 21.4, Eos % (Auto) 2.0, Baso % (Auto) 1.4, Neut # (Auto) 1.6 L, Lymph # (Auto) 1.9, Hand # (Auto) 1.0 H, Eos # (Auto) [...] % (Auto) 21.1, Lymph % (Auto) 51.6, Hand % (Auto) 24.2, Eos % (Auto) 1.9, Baso % (Auto) 1.2, Neut # (Auto) 0.5 L, Lymph # (Auto) 1.3, Hand # (Auto) 0.6, Eos # (Auto) 0.0, [...] for coordination of care (as documented) and cvdl-ul-qkaj counseling of patient and/or family. Dictated By: George Ash MD DD/ 1059 Signed By: <Electronically signed by MD George Ash> 12/16/19 1104 [facility] Work Phone: [phone] Progress note Author George Ash [facility] December 09, 2019 11:13am Note Date/Time December 09, 2019 11:1 1am [facility] [place] [address] Hem/Onc Follow Up Note - OP Signed Patient: Kirill Echols MR#: [id number] : 1965 Acct:[id number] Age/Sex: 54 / M Type: REG RCR [...] the findings below: Patient: Kirill Echols MR#: [id number] : 1965 Acct:[id number] Age/Sex: 54 / M ADM Date: 0 Loc: Room: Type: [facility] Attending Dr: Varghese Duval MD Ordering Provider: [...] with RIGHT supraclavicular region. These may be field representative/health education of metastatic lymph nodes. There is focus [...] Franklin Gomes M.D.10/31/2019 2:44 PM Dictation Location: [facility] The patient was seen by Dr. James and evaluated by Dr. Duval. 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 [facility] - Medical History Medical History: Medical [...] 7 Days 12/09/19 09:14: PHA Creatinine Clear 109.1640377609, Sodium 130 L, Potassium 4.3, Chloride 99, [...] at thattime as well. His dose of TAXIMETER REPAIRER-16 is adjusted to 50% due to liver [...] for coordination of care (as documented) and drje-bt-wgtz counseling of patient and/or family. Dictated By: George Ash MD DD/ 1109 Signed By: <Electronically signed by MD George Ash> 12/09/19 1114 [facility] Work Phone: [phone] Progress note Author George Ash [facility] November 25, 2019 11:06am Note Date/Time November 25, 2019 11:0 1am [facility] [place] [address] Hem/Onc Follow Up Note - OP Signed Patient: Kirill Echols MR#: [id number] : 1965 Acct:[id number] Age/Sex: 54 / M Type: REG RCR [...] the findings below: Patient: Kirill Echols MR#: [id number] : 1965 Acct:[id number] Age/Sex: 54 / M ADM Date: 0 Loc: Room: Type: [facility] Attending Dr: Varghese Duval MD Ordering Provider: [...] with RIGHT supraclavicular region. These may be field representative/health education of metastatic lymph nodes. There is focus [...] Franklin Gomes M.D.10/31/2019 2:44 PM Dictation Location: [facility] The patient was seen by Dr. James and evaluated by Dr. Duval. 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 The patient does have evidence of hyponatremia. It is somewhat mild. He does have clubbing on physical exam. [facility] - Medical History Medical History: Medical [...] % (Auto) 62.6, Lymph % (Auto) 28.7, Hand % (Auto) 6.5, Eos % (Auto) 1.5, Baso % (Auto) 0.7, Neut # (Auto) 4.6, Lymph # (Auto) 2.1, Hand # (Auto) 0.5, Eos # (Auto) 0.1, Baso # (Auto) 0.0, Nucleated RBC % (auto) 0.2 11/24/19 07:33: PHA Creatinine Clear 75.8949706431, Sodium 128 L, Potassium 3.7,Chloride 93 L, [...] Not detected 11/18/19 14:04: PHA Creatinine Clear 68.7131179023, Sodium 128 L, Potassium 4.8,Chloride 93 L, [...] Neut % (Auto)N/A, Lymph % (Auto) N/A, Hand % (Auto) N/A, Eos % (Auto) N/A, Baso % (Auto) N/A,Neut # (Auto) N/A, Lymph # (Auto) N/A, Hand # (Auto) N/A, Eos # (Auto) N/A, [...] for coordination of care (as documented) and ugmg-gj-vdvp counseling of patient and/or family. Dictated By: George Ash MD DD/ 1100 Signed By: <Electronically signed by MD George Ash> 11/25/19 2737 [facility] Work Phone: [phone] Consult note Author Leoncio Kowalski [facility] November 20, 2019 2:44pm Note Date/Time November 20, 2019 1:38p m [facility] [place] [address] Rad Onc Consult Note - OP Signed Patient: Kirill Echols MR#: [id number] : 1965 Acct:[id number] Age/Sex: 54 / M Type: REG RCR Copies to: MD Rylan Vega MD James E Fanning, MD~ HPI - Service Date/Time Date: 11/20/19 Time: 09:50 Diagnosis: 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 Chief Complaint: I am here for my radiation therapy treatments for lung cancer HPI: 54-year-old -Greek gentleman history of smoking 40 pack years [...] signed by Leoncio Kowalski MD> 11/20/19 1444 [facility] Work Phone: [phone] Progress note Author George Ash [facility] November 20, 2019 11:12am Note Date/Time November 20, 2019 11:06 am [facility] at [place] [id number] Hem/Onc Follow Up Note - OP Signed Patient: Kirill Echols MR#: [id number] : 1965 Acct:[id number] Age/Sex: 54 / M Type: REG RCR [...] see Dr. Duval tomorrow for consideration of Xismwt-w-Ohxk. Chemotherapy education will be tomorrow November 20. [...] the findings below: Patient: Kirill Echols MR#: [id number] : 1965 Acct:[id number] Age/Sex: 54 / M ADM Date: 0 Loc: Room: Type: [facility] Attending Dr: Varghese Duval MD Ordering Provider: [...] with RIGHT supraclavicular region. These may be field representative/health education of metastatic lymph nodes. There is focus [...] Franklin Gomes M.D.10/31/2019 2:44 PM Dictation Location: [facility] The patient was seen by Dr. James and evaluated by Dr. Duval. 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 The patient does have evidence of hyponatremia. It is somewhat mild. He does have clubbing on physical exam. [facility] - Medical History Medical History: Medical [...] 7 Days 11/18/19 14:04: PHA Creatinine Clear 68.4063190331, Sodium 128 L, Potassium 4.8,Chloride 93 L, [...] Neut % (Auto)N/A, Lymph % (Auto) N/A, Hand % (Auto) N/A, Eos % (Auto) N/A, Baso % (Auto) N/A,Neut # (Auto) N/A, Lymph # (Auto) N/A, Hand # (Auto) N/A, Eos # (Auto) N/A, [...] cancer The patient will be seen for Dvvcds-n-Equg tomorrow. Head CT has been ordered and [...] for coordination of care (as documented) and vcvz-iv-cdwl counseling of patient and/or family. Dictated By: George Ash MD DD/ 1106 Signed By: <Electronically signed by MD George Ash> 11/20/19 1114 [facility] Work Phone: [phone] Consult note Author George Ash [facility] November 18, 2019 2:02pm Note Date/Time November 18, 2019 1:50p m [facility] at [place] [id number] Hem/Onc Consult Note - OP Signed Patient: Kirill Echols MR#: [id number] : 1965 Acct:[id number] Age/Sex: 54 / M Type: REG R Copies to: MD Rylan Vega MD Strack, Leanne K DO~ HPI Date/Time of Service: Date of Service: 11/18/2019 Time of Service: 13:49 Referring Provider/PCP: Referring Provider: Vagrhese Duval MD PCP: Rylan Andrea MD - [...] the findings below: Patient: Kirill Echols MR#: [id number] : 1965 Acct:[id number] Age/Sex: 54 / M ADM Date: 0 Loc: Room: Type: [facility] Attending Dr: Varghese Duval MD Ordering Provider: Varghese Duval MD Date of Service: 10/31/19 PET/PET tumor init tx [facility] sb-mt: R91.1 R91.8 R59.1 Copies to: MD [...] with RIGHT supraclavicular region. These may be field representative/health education of metastatic lymph nodes. There is focus [...] Franklin Gomes M.D.10/31/2019 2:44 PM Dictation Location: [facility] The patient was seen by Dr. James and evaluated by Dr. Duval. 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 I was called by Dr. Duval today 11/18/2019 and arrange to see the patient immediately. The patient does have evidence of hyponatremia. It is somewhat mild. He does have clubbing on physical exam. PMF - Medical History Medical History: Medical [...] for immediate head CT. He will need Hazmhz-l-Icau placement and I will refer him to Dr. Duval for this. The patient has fairly limited disease in the chest and mediastinum and may very well be a candidate for combined modality therapy with chemotherapy and radiation. I will refer himto radiation oncology here at [facility]. We will recommend to him immediate chemotherapy [...] for coordination of care (as documented) and wnjw-sr-rfqp counseling of patient and/or family. Dictated By: [...] Neck pain acute Small cell lung cancer [facility] Work Phone: Evaluation note* Diagnosis Onset Date Resolution Status Anemia due to chemotherapy a cute Anxiety acute Cancer-related pain acute Chest pain acute Diarrhea acute Edema acute Joint pain acute Neck pain acute Small cell lung cancer chron ic Chest pain acute [facility] Work Phone: Evaluation note* Diagnosis Onset Date Resolution Status Chest pain acute Small cell lung cancer acute Anemia due to chemotherapy a cute Anxiety acute Cancer-related pain acute Chest pain acute Diarrhea acute Edema acute Joint pain acute Neck pain acute Small cell lung cancer [facility] Work Phone: Evaluation note* Diagnosis Onset Date Resolution Status Chest pain acute Small cell lung cancer acute Anemia due to chemotherapy a cute Anxiety acute Cancer-related pain acute Chest pain acute Diarrhea acute Edema acute Joint pain acute Neck pain acute Small cell lung cancer chron ic Small cell lung cancer acute [facility] Work Phone: evaluation note* Diagnosis [...] [facility] Work Phone: evaluation note* Diagnosis Onset Date Resolution Status Cancer-related pain acute Chronic hyponatremia acute Joint pain acute Shortness of breath acute Weight loss acute Small cell lung cancer chron ic Anxiety resolved Chest pain resolved Diarrhea resolved Edema resolved Neck pain resolved Small cell lung cancer chron ic [facility] Work Phone: Evaluation note* Diagnosis Onset Date Resolution Status Abdominal cramping acute GERD (gastroesophageal reflux disease) acute Hx of small bowel obstruction acute Weight loss acute Constipation noneactive [facility] Work Phone: evaluation note* Diagnosis Chronic obstructive pulmonary disease, unspecified COPD type (CMS/HCC)- Primary Person consulting for explanation of examination or test finding Alcoholic liver disease, unspecified (CMS/HCC) Atherosclerosis of aorta (CMS/HCC) Atherosclerosis of aorta 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) Current moderate episode of major depressive disorder without prior episode (HCC) (CMS/HCC) documented in this encounter [facility] HealthcareEvaluation note* Diagnosis Essential hypertension (CMS/HCC)- Primary Unspecified essential hypertension Burning with urination Dysuria Urinary tract infection with hematuria, site unspecified Gastroesophageal reflux disease without esophagitis Esophageal reflux 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) Nausea Nausea alone Generalized abdominal pain Abdominal pain, generalized Primary pulmonary hypertension (CMS/HCC) Primary pulmonary hypertension documented in this encounter [facility] HealthcareEvaluation note* Diagnosis Chronic obstructive pulmonary disease, unspecified COPD type (CMS/HCC)- Primary Small pleural effusion Small cell lung cancer in adult (CMS/HCC) Shortness of breath documented in this encounter [facility] note* Diagnosis Need for follow-up care after discharge- Primary Primary insomnia Persistent disorder of initiating or maintaining sleep Gastroesophageal reflux disease without esophagitis Esophageal reflux Hx SBO Personal history of other diseases of digestive disease Constipation, unspecified constipation type Mass of chin Encounter for annual wellness visit (AWV) in Medicare patient- Primary documented in this encounter [facility]* Diagnosis Encounter for annual wellness visit (AWV) in Medicare patient- Primary documented in this encounter [facility]* Diagnosis Need for follow-up care after discharge- Primary Current moderate episode of major depressive disorder without prior episode (HCC) (CMS/HCC) documented in this encounter [facility]* Diagnosis EIC (epidermal inclusion cyst)- Primary Sebaceous cyst Other specified erythematous conditions documented in this encounter [facility]* Diagnosis Primary insomnia- Primary Persistent disorder of initiating or maintaining sleep Primary pulmonary hypertension (CMS/HCC) Primary pulmonary hypertension Hair loss Unspecified alopecia Dry skin Other symptoms involving skin and integumentary tissues 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) documented in this encounter [facility] Author Tez Irene [facility] April 10, 2022 3:12pm Note Date/Time April 10, 2022 3:12pm [facility] [address] [place] [address] Hospitalist H&P Signed Patient: Kirill Echols MR#: [id number] : 1965 Acct:[id number] Age/Sex: 56 / M Adm Date: 2 Loc: Room: [address] [place] [address] Type: ADM INOo Attending Dr: Tez Irene [...] % (Auto) 14.2 % (.) 04/10/22 10:20 Hand % (Auto) 9.9 % (.) 04/10/22 10:20 Eos % (Auto) 1.5 % (.) 04/10/22 10:20 Baso % (Auto) 1.0 % (.) 04/10/22 10:20 Neut # (Auto) 4.5 x10E3/uL (1.8-7.7) 04/10/22 10:20 Lymph # (Auto) 0.9 x10E3/uL (1.00-4.8) L 04/10/22 10:20 Hand # (Auto) 0.6 x10E3/uL (0.0-0.8) 04/10/22 10:20 [...] <Electronically signed by Tez Irene MD> 04/10/22 2728 [facility] Work Phone: Hisxlcw general Narrative - Reported* Type Description Date Medical History COPD Medical History anxiety Medical History HTN Medical History Lung CA Surgical History Vasectomy Surgical History Right wrist surgery 2005 Surgical History Hernia repair Hospitalization History Related to CareFamily Other Histanu general Narrative - Reported* Type Description Date Medical History COPD Medical History anxiety Medical History HTN Medical History Lung CA, small cell remission Surgical History Vasectomy Surgical History Right wrist surgery 2005 Surgical History Hernia repair Hospitalization History Related to CareFamily Other Hospital Discharge instructionsAmbulatory Orders* Initiate Home Health Time Frame: 1 Day, Location: Determined By Patient [facility] Work Phone: Hospital Discharge instructionsAmbulatory Orders* Initiate Home Health Time Frame: 1 Day, Location: Determined By Patient * Oncology Histology Time Frame: 10/03/22, Location: Determined By Patient * Oncology Histology Time Frame: 10/17/22, Location: Determined By Patient * Oncology Histology Time Frame: 10/10/22, Location: Determined By Patient [facility] Work Phone: Progress note Author Estela Varma [facility] February 27, 2022 2:56pm Note Date/Time February 27, 2022 2 :51pm [facility] [place] [id number] Hem/Onc Follow Up Note - OP Signed Patient: Kirill Echols MR#: [id number] : 1965 Acct:[id number] Age/Sex: 56 / M Type: REG RCR [...] for review. No concerns voiced. HPI: 54-year-old -Greek gentleman history of smoking 40 pack years [...] overwhelming for recurrence. He lives alone in [place]. His children live in [place]. His left him 8 months ago and [...] and urinary tract. Otherwise, there is an Aqgqxg-r-Iapi on the left. The lungs demonstrate emphysematous [...] He is considering moving back down to [facility] where he is from. 02/27/22 he [...] for coordination of care (as documented) and rhjw-km-mswz counseling of patient and/or family. [facility] - Medical History Medical History: Medical [...] 09/14/21 14:56 KB (Rec: 09/14/21 14:59 KB [id number]) Distress Screening Distress score of 4 or more discussed Yes with patient? Distress screening follow up: Spoke with patient via phone. Patient is doing ok at this time. Recently had a heart cath which was negative. He is happpy that his scans are good. Dr. Perez is working on getting him into [facility]. - Lab Results Diagram of Most [...] BID 09/09/21 [History Confirmed 02/27/22] Dictated By: Estlea Varma II, DO DD/ 1450 Signed By: <Electronically signed by Estela Varma II, DO> 02/27/22 1456 [facility] Work Phone: Progress note Author Estela Varma [facility] April 14, 2022 12:02pm Note Date/Time April 14, 2022 1 1:50am [facility] [place] [address] Hem/Onc Follow Up Note - OP Signed Patient: Kirill Echols MR#: [id number] : 1965 Acct:[id number] Age/Sex: 56 / M Type: REG RCR [...] concerns voiced at this time. HPI: 54-year-old -Greek gentleman history of smoking 40 pack years [...] overwhelming for recurrence. He lives alone in [place]. His children live in [place]. His left him 8 months ago and [...] and urinary tract. Otherwise, there is an Firksx-n-Sera on the left. The lungs demonstrate emphysematous [...] He is considering moving back down to [facility] where he is from. 02/27/22 he [...] for coordination of care (as documented) and nhrh-zz-poen counseling of patient and/or family. [facility] - Medical History Medical History: Medical [...] 03/01/22 15:44 KB (Rec: 03/01/22 15:45 KB [id number]) Distress Screening Distress score of 4 or [...] % (Auto) 71.4, Lymph % (Auto) 16.2, Hand % (Auto) 8.6, Eos % (Auto) 2.9, Baso % (Auto) 0.9, Neut # (Auto) 4.5, Lymph # (Auto) 1.0, Hand # (Auto) 0.5, Eos# (Auto) 0.2, Baso [...] by Estela Varma II, DO> 04/14/22 1202 [facility] Work Phone: Progress note Author Dixie Olivia [facility] June 22, 2022 2:24pm Note Date/Time June 22, 2022 2 :16pm [facility] [place] [address] Hem/Onc Follow Up Note - OP Signed Patient: Kirill Echols MR#: [id number] : 1965 Acct:[id number] Age/Sex: 57 / M Type: REG RCR Copies to: MD Rylan Vega MD~ Subjective Date/Time of Service: Date of Service: 06/22/2022 Time of Service: 14:09 Chief Complaint: Patient is here for a 2 month follow up with, had chest tube placed 06/16/2022. No concerns voiced at this time. HPI: 54-year-old -Greek gentleman history of smoking 40 pack years [...] overwhelming for recurrence. He lives alone in [place]. His children live in [place]. His left him 8 months ago and [...] and urinary tract. Otherwise, there is an Ulmxto-s-Dpeu on the left. The lungs demonstrate emphysematous [...] He is considering moving back down to [facility] where he is from. 02/27/22 he [...] diaphoresis. No orthostasis or dizziness or palpitations. [facility] - Medical History Medical History: Medical History (Last Updated 06/16/22 @ 20:08 by Jackie Fraga, ANP-) Adverse reaction to LUIS inhibitor drug Anemia [...] 03/01/22 15:44 KB (Rec: 03/01/22 15:45 KB [id number]) Distress Screening Distress score of 4 or [...] for coordination of care (as documented) and fmlm-jk-wrnx counseling of patient and/or family. Dictated By: Dixie Olivia APRN DD/ 140 Signed By: <Electronically signed by ERINN Olivia> 06/22/22 4162 [facility] Work Phone: Progress note Author Estela Varma [facility] September 19, 2022 10:02am Note Date/Time September 19, 2022 9:50am [facility] [place] [id number] Hem/Onc Follow Up Note - OP Signed Patient: Kirill Echols MR#: [id number] : 1965 Acct:[id number] Age/Sex: 57 / M Type: REG RCR [...] Weight loss Follow Up Instructions: f/u wth PIT SHOVELER in 6 weeks, cbc, cmp b12, folate, [...] concerns voiced at this time. HPI: 54-year-old -Greek gentleman history of smoking 40 pack years [...] overwhelming for recurrence. He lives alone in [place]. His children live in [place]. His left him 8 months ago and [...] and urinary tract. Otherwise, there is an Kmyfsa-g-Ogct on the left. The lungs demonstrate emphysematous [...] add on appointment after ER visit at [facility] on August 29, 2022 He went [...] for coordination of care (as documented) and hnnp-ay-rfgw counseling of patient and/or family. [facility] - Medical History Medical History: Medical [...] 03/01/22 15:44 KB (Rec: 03/01/22 15:45 KB [id number]) Distress Screening Distress score of 4 or [...] Work Phone: Progress note Author Estela Varma [facility] December 25, 2022 11:43am Note Date/Time December 25, 2022 11 :39am [facility] [place] [id number] Hem/Onc Follow Up Note - OP Signed Patient: Kirill Echols MR#: [id number] : 1965 Acct:[id number] Age/Sex: 57 / M Type: REG RCR [...] today. No new concerns voiced. HPI: 54-year-old -Greek gentleman history of smoking 40 pack years [...] overwhelming for recurrence. He lives alone in [place]. His children live in [place]. His left him 8 months ago and [...] and urinary tract. Otherwise, there is an Ovjwgo-a-Mcus on the left. The lungs demonstrate emphysematous [...] add on appointment after ER visit at [facility] on August 29, 2022 He went [...] for coordination of care (as documented) and qspd-kz-kaev counseling of patient and/or family. [facility] - Medical History Medical History: Medical [...] 03/01/22 15:44 KB (Rec: 03/01/22 15:45 KB [id number]) Distress Screening Distress score of 4 or [...] % (Auto) 70.2, Lymph % (Auto) 15.7, Hand % (Auto) 7.8, Eos % (Auto) 5.0, Baso % (Auto) 1.3, Nucleat RBC Rel Count 0.0, Neut # (Auto) 4.2, Lymph # (Auto) 0.9 L, Hand # (Auto) 0.5, Eos # (Auto) 0.3, [...] by Estela Varma II, DO> 12/25/22 1143 [facility] Work Phone: Reason for referral (narrative)* Consultation (Routine) - Authorized Specialty Diagnoses / Procedures Referred By En rodriguez Referred To Contact Dermatology Diagnoses Mass of chin Procedures [place] OFFICE[facility]OUTPATIENT [facility] MDM 60 MINUTES Marilu Bonner NP [address] [place] [address] Referral ID Status Reason Start Date Expiration Date Visits Requested Visits Authorized [id number] Authorized Specialty Services Required 01/18/2024 07/16/2024 1 1 [facility] Purpose Family History Unknown Family Member Name Dates Details Family [...] Specified Diabetes mellitus Unknown Malignant neoplasm Unknown Relationship Condition Age at Onset Recorded Date/T liliana mother Malignant neoplasm of colon Unknown Type 2 diabetes mellitus Unknown father Malignant neoplasm of prostate Unknown Cardiovascular disease Unknown Hypertension Unknown brother Type 2 diabetes mellitus Unknown sister Hypertension Unknown brother Diabetes mellitus Unknown father Malignant neoplasm Unknown Unknown mother Diabetes mellitus Unknown Malignant neoplasm Unknown Relationship Condition Age at Onset Recorded Date/T liliana mother Malignant neoplasm of colon Unknown Type 2 diabetes mellitus Unknown Diabetes mellitus Unknown Malignant neoplasm Unknown father Malignant neoplasm of prostate Unknown Cardiovascular disease Unknown Hypertension Unknown Unknown brother Type 2 diabetes mellitus Unknown sister Hypertension Unknown brother Diabetes mellitus Unknown Advance Directives Advance Directive Response Recorded Date/ Time Advance Directives No September 22 8 2:27pm Advance Directive Response Recorded Date/ Time [...] Edema Neck pain Small cell lung cancer Chief Complaint Refer by: Dr. Andrea :gerd, hx sm bowel obstruction Reason for Visit Abdominal cramping GERD (gastroesophageal reflux disease) Hx of small bowel obstruction Weight loss Constipation Chief Complaint Refer by: Dr. Andrea :gerd, hx sm bowel obstruction gerd/constipation/fm hx of colon ca/hx of obstruct gerd/constipation/fm hx of colon ca/hx of obstruct Reason for Visit Abdominal cramping GERD (gastroesophageal reflux disease) Hx of small bowel obstruction Weight loss Constipation Additional Source Comments (unrecognized sect ion and content) No Status Records FoundNo Status Records FoundNo Status Records FoundNo Status Records FoundNo Status Records FoundNo Status Records FoundNo Status Records FoundNo Status Records FoundNo Status Records FoundNo Status Records FoundNo Status Records Found INFORMATION SOURCE (unrecogn ized section and content) DATE CREATED AUTHOR 05/14/2018 [facility] DATE CREATED AUTHOR AUTHOR'S ORGANIZ ATION 03/05/2020 [facility] DATE CREATED AUTHOR AUTHOR'S ORGANIZ ATION 08/07/2020 [facility] DATE CREATED AUTHOR AUTHOR'S ORGANIZ ATION 08/20/2020 [facility] DATE CREATED AUTHOR AUTHOR'S ORGANIZ ATION 12/02/2021 [facility] DATE CREATED AUTHOR AUTHOR'S ORGANIZ ATION 03/04/2022 [facility] ical Center DATE CREATED AUTHOR AUTHOR'S ORGANIZ ATION 10/23/2022 [facility] [place] [facility] DATE CREATED AUTHOR AUTHOR'S ORGANIZ ATION 09/14/2023 [facility] DATE CREATED AUTHOR AUTHOR'S ORGANIZ ATION 01/22/2024 Montiel Columbiana [facility] ical Center DATE CREATED AUTHOR AUTHOR'S ORGANIZ ATION 05/23/2024 [facility] DATE CREATED AUTHOR AUTHOR'S ORGANIZ ATION 06/17/2024 [facility] d[facility] Specialists EPIC REASON FOR VISIT (unrecogniz ed section and content) Reason Comments Shortness of Breath Consultation Small cell lung cancer Consultation Pleural effusion Consultation Specialty Diagnoses / Procedures Referred By Contac t Referred To Contact Pulmonary Disease / Pulmonology Diagnoses Small pleural effusion Small cell lung cancer in adult (CMS/HCC) Shortness of breath Procedures [place] OFFICE/OUTPATIENT NEW HIGH MDM 60 MINUTES Marilu Bonner NP [address] [place] [address] Ophelia James, DO [address] [place] [address] Referral ID Status Reason Start Date Expiration Date V isits Requested Visits Authorized [id number] Closed Specialty Services Required 10/11/2023 04/08/2024 1 1 Reason Comments Suspicious Skin Lesion Specialty Diagnoses / Procedures Referred By Contac t Referred To Contact Dermatology Diagnoses Mass of chin Procedures [place] OFFICE/OUTPATIENT NEW HIGH MDM 60 MINUTES Marilu Bonner NP [address] [place] [address] Phone: tel: fax: Nikos Yu MD [address] [place] [address] Phone: tel: fax: Referral ID Status Reason Start Date Expiration Date V isits Requested Visits Authorized [id number] Closed Specialty Services Required 01/18/2024 07/16/2024 1 1 Goals (unrecognized section and content) Goals may be documented in a n alternate section Care Teams (unrecognized sec tion and content) Team Status: Active Member Role Status Meir Andrea MD Primary Care Provider Active Team Status: Active Member Role Status Meir Andrea MD Primary Care Provider Active S tart: June 29, 2023 Varghese Duval MD Referring Provider Active St art: June 29, 2023 Estela Varma II, DO Attending Provider Active Start: June 29, 2023 Team Status: Inactive Member Role Status Meir Andrea MD Primary Care Provider Active S tart: June 29, 2023 End: June 29, 2023 Estela Varma II, DO Attending Provider Active Start: June 29, 2023 End: June 29, 2023 Team Status: Inactive Member Role Status Meir Andrea MD Primary Care Provider Active Nilsa Isidro NP-C Attending Provider Active Team Status: Active Member Role Status Meir Andrea MD Primary Care Provider Active Varghese Duval MD Referring Provider Active Estela Varma II, DO Attending Provider Active Team Status: Active Member Role Status Meir Andrea MD Primary Care Provider Active Kali Longo , DO Emergency Provider Active Tez Irene MD Admit Provider, Attending Provider Active Team Status: Inactive Member Role Status Meir Andrea MD Primary Care Provider Active Kali Longo , DO Emergency Provider Active Tez Irene MD Admit Provider, Attending Provider Active Estela Varma II, DO Other Provider Active Team Status: Inactive Member Role Status Meir Andrea MD Primary Care Provider Active Estela [...] Active Humberto Molina PA-C Emergency Provider Active Pasteurizing Supervisor Relationship Specialty Start Date End Date Rylan Andrea MD [address] [place] [address] PCP - General Family Medicine 10/16/22 Marilu Bonner, PIT SHOVELER [address] [place] [address] Nurse Practitioner Family Medicine 04/03/23 Nilsa Isidro P[employer] SHOVELER [address] [place] [phone] Nurse Practitioner Pulmonary Disease 04/03/23 Morenita Gomes, RN Registered Nurse Family Medicine 06/18/23 Sanjuana Van LSW Chief Executive Or Managing Director Family Medicine 06/18/23 Pasteurizing Supervisor Relationship Specialty Start Date End Date Rylan Andrea MD [address] [place] [address] PCP - General Family Medicine 10/16/22 Marilu Bonner NP [address] [place] [address] Nurse Practitioner Family Medicine 04/03/23 Nilsa Isidro NP [address] [place] [address] Nurse Practitioner Pulmonary Disease 04/03/23 Morenita Gomes, RN Registered Nurse Family Medicine 06/18/23 Sanjuana Van LSW Chief Executive Or Managing Director Family Medicine 06/18/23 Team Status: Active Member Role Status Meir Andrea MD Primary Care Provider Active S tart: December 13, 2023 End: December 20, 2023 Rosalio Vides DO Attending Provider Active Sta rt: December 13, 2023 End: December 20, 2023 Shaikh Barrington MD Referring Provider Active Sta rt: December 13, 2023 End: December 20, 2023 Team Status: Active Member Role Status Meir Andrea MD Primary Care Provider Active S tart: December 16, 2023 End: December 20, 2023 Rosalio Vides DO Attending Provider Active Sta rt: December 16, 2023 End: December 20, 2023 Shaikh Barrington MD Referring Provider Active Sta rt: December 16, 2023 End: December 20, 2023 Team Status: Active Member Role Status Meir Andrea MD Primary Care Provider Active S tart: January 07, 2024 Rosalio Vides DO Attending Provider Active Sta rt: January 07, 2024 Team Status: Inactive Member Role Status Meir Andrea MD Primary Care Provider Active S tart: January 31, 2024 End: January 31, 2024 Cathi L Ly , DO Attending Provider Active St art: January 31, 2024 End: January 31, 2024 Team Status: Inactive Member Role Status Meir Andrea MD Primary Care Provider Active S tart: February 18, 2024 End: February 18, 2024 Cathi L Ly , DO Attending Provider Active St art: February 18, 2024 End: February 18, 2024 Team Status: Active Member Role Status Meir Andrea MD Primary Care Provider Active S tart: February 18, 2024 Cathi L Ly , DO Attending Provider, Other Provider Active Start: February 18, 2024 Pasteurizing Supervisor Relationship Specialty Start Date End Date Rylan Andrea MD [address] [place] [address] PCP - General Family Medicine 10/16/22 Rylan Andrea MD [address] [place] [address] [address] [facility] 05/14/23 05/13/24 Marilu Bonner, PIT SHOVELER [address] [place] [address] Nurse Practitioner Family Medicine 04/03/23 Nilsa Isidro PIT SHOVELER [address] [place] [address] Nurse Practitioner Pulmonary Disease 04/03/23 Sanjuana Van LSW Chief Executive Or Managing Director Family Medicine 06/18/23 Cindy Yeager OD [address] [place] [phone] Referring Physician Optometry 10/31/23 Ophelia James DO [address] [place] [address] Pulmonary Disease 01/10/24 Pasteurizing Supervisor Relationship Specialty Start Date End Date Rylan Andrea MD [address] [place] [address] PCP - General Family Medicine 10/16/22 Rylan Andrea MD [address] [place] [address] [address] [facility] 05/14/23 05/13/24 Marilu Bonner, PIT SHOVELER [address] [place] [address] Nurse Practitioner Family Medicine 04/03/23 Nilsa Isidro NP [address] [place] [phone] Nurse Practitioner Pulmonary Disease 04/03/23 Sanjuana Van LSW Chief Executive Or Managing Director Family Medicine 06/18/23 Cindy Yeager OD [address] [place] [address] Referring Physician Optometry 10/31/23 Ophelia James DO [address] [place] [address] Pulmonary Disease 01/10/24 Pasteurizing Supervisor Relationship Specialty Start Date End Date Rylan Andrea MD [address] [place] [address] PCP - General Family Medicine 10/16/22 Rylan Andrea MD [address] [place] [address] [address] [facility] 05/14/23 05/13/24 Marilu Bonner NP [address] [place] [address] Nurse Practitioner Family Medicine 04/03/23 Nilsa Isidro NP [address] [place] [phone] Nurse Practitioner Pulmonary Disease 04/03/23 Morenita Gomes, ARTHUR Registered Nurse Family Medicine 06/18/23 12/14/23 Sanjuana Van LSW Chief Executive Or Managing Director Family Medicine 06/18/23 Cindy Yeager OD [address] [place] [address] Referring Physician Optometry 10/31/23 Ophelia James DO [address] [place] [address] Pulmonary Disease 01/10/24 Pasteurizing Supervisor Relationship Specialty Start Date End Date Rylan Andrea MD [address] [place] [address] PCP - General Family Medicine 10/16/22 Marilu Bonner, ELLE [address] [place] [address] Nurse Practitioner Family Medicine 04/03/23 Nilsa Isidro NP [address] [place] [address] Nurse Practitioner Pulmonary Disease 04/03/23 Sanjuana Van LSW Chief Executive Or Managing Director Family Medicine 06/18/23 Cindy العلي MD [address] [facility], [place] [address] Referring Physician Optometry 10/31/23 Pasteurizing Supervisor Relationship Specialty Start Date End Date Rylan Andrea MD [address] [place] [address] PCP - General Family Medicine 10/16/22 Mairlu Bonner, PIT SHOVELER [address] [place] [address] Nurse Practitioner Family Medicine 04/03/23 Nilsa Isidro NP [address] [place] [address] Nurse Practitioner Pulmonary Disease 04/03/23 Sanjuana Van LSW Chief Executive Or Managing Director Family Medicine 06/18/23 Cindy العلي MD [address] [place] [address] Referring Physician Optometry 10/31/23 Ophelia James DO [address] [place] [place] [address] Pulmonary Disease 01/10/24 Pasteurizing Supervisor Relationship Specialty Start Date End Date Rylan Andrea MD [address] [place] [address] PCP - General Family Medicine 10/16/22 Marilu Bonner NP [address] [place] [address] Nurse Practitioner Family Medicine 04/03/23 Nilsa Isidro NP [address] [place] [address] Nurse Practitioner Pulmonary Disease 04/03/23 Sanjuana Van LSW Chief Executive Or Managing Director Family Medicine 06/18/23 Cindy العلي MD [address] [place], [place] [phone] Referring Physician Optometry 10/31/23 Ophelia James DO [address] [place] [address] Pulmonary Disease 01/10/24 Pasteurizing Supervisor Relationship Specialty Start Date End Date Rylan Andrea MD [address] [place] [address] PCP - General Family Medicine 10/16/22 Marilu Bonner, PIT SHOVELER [address] [place] [address] Nurse Practitioner Family Medicine 04/03/23 Nilsa Isidro NP [address] [place] [address] Nurse Practitioner Pulmonary Disease 04/03/23 Sanjuana Van LSW Chief Executive Or Managing Director Family Medicine 06/18/23 Cindy العلي MD [address] [place], [place] [phone] Referring Physician Optometry 10/31/23 Ophelia James DO [address] [place] [address] Pulmonary Disease 01/10/24 Pasteurizing Supervisor Relationship Specialty Start Date End Date Rylan Andrea MD [address] [place] [address] PCP - General Family Medicine 10/16/22 Marilu Bonner, PIT SHOVELER [address] [place] [address] Nurse Practitioner Family Medicine 04/03/23 Nilsa Isidro NP [address] [place] [id number] Nurse Practitioner Pulmonary Disease 04/03/23 Sanjuana Van LSW Chief Executive Or Managing Director Family Medicine 06/18/23 Cindy العلي MD [address] [place], [place] [phone] Referring Physician Optometry 10/31/23 Ophelia James DO [address] [place] [address] Pulmonary Disease 01/10/24 Pasteurizing Supervisor Relationship Specialty Start Date End Date Rylan Andrea MD [address] [place] [id number] PCP - General Family Medicine 10/16/22 Marilu Bonner NP [address] [place] [address] Nurse Practitioner Family Medicine 04/03/23 Nilsa Isidro NP [address] [place] [id number] Nurse Practitioner Pulmonary Disease 04/03/23 Sanjuana Van LSW Chief Executive Or Managing Director Family Medicine 06/18/23 Cindy Yeager OD [address] [place], [place] [id number] Referring Physician Optometry 10/31/23 Ophelia James DO [address] [place] [address] Pulmonary Disease 01/10/24 Pasteurizing Supervisor Relationship Specialty Start Date End Date Rylan Andrea MD [address] [place] [address] PCP - General Family Medicine 10/16/22 Marilu Bonner NP [address] [place] [address] Nurse Practitioner Family Medicine 04/03/23 Nilsa Isidro NP [address] [place] [address] Nurse Practitioner Pulmonary Disease 04/03/23 Sanjuana Van LSW Chief Executive Or Managing Director Family Medicine 06/18/23 Cindy Yeager OD [address] [place] [id number] Referring Physician Optometry 10/31/23 Ophelia James DO [address] [place] [address] Pulmonary Disease 01/10/24 Pasteurizing Supervisor Relationship Specialty Start Date End Date Rylan Andrea MD [address] [place] [address] PCP - General Family Medicine 10/16/22 Marilu Bonner NP [address] [place] [address] Nurse Practitioner Family Medicine 04/03/23 Nilsa Isidro NP [address] [place] [phone] Nurse Practitioner Pulmonary Disease 04/03/23 Sanjuana Van LSW Chief Executive Or Managing Director Family Medicine 06/18/23 Cindy Yeager, OD [address] [facility], [place] [address] Referring Physician Optometry 10/31/23 Ophelia James DO [address] [place] [address] Pulmonary Disease 01/10/24 Pasteurizing Supervisor Relationship Specialty Start Date End Date Rylan Andrea MD [address] [place] [address] PCP - General Family Medicine 10/16/22 Marilu Bonner NP [address] [place] [address] Nurse Practitioner Family Medicine 04/03/23 Nilsa Isidro NP [address] [place] [address] Nurse Practitioner Pulmonary Disease 04/03/23 Sanjuana Van LSW Chief Executive Or Managing Director Family Medicine 06/18/23 Cindy Yeager, OD [address] [place] [address] Referring Physician Optometry 10/31/23 Ophelia James DO [address] [place] [address] Pulmonary Disease 01/10/24 Pasteurizing Supervisor Relationship Specialty Start Date End Date Rylan Andrea MD [address] [place] [address] PCP - General Family Medicine 10/16/22 Marilu Bonner NP [address] [place] [address] Nurse Practitioner Family Medicine 04/03/23 Nilsa Isidro NP [address] [place] [address] Nurse Practitioner Pulmonary Disease 04/03/23 Sanjuana Van LSW Chief Executive Or Managing Director Family Medicine 06/18/23 Cindy Yeager OD [address] [place] [address] Referring Physician Optometry 10/31/23 Ophelia James DO [address] [place] [address] Pulmonary Disease 01/10/24 FOR RECORDS PERTAINING TO PATIENTS WHO ARE [...] BE BASED ON THE PRIMARY CLINICAL RECORDS. [employer] provides no warranty or guarantee of the accuracy or completeness of information in this document.
[2024-06-19 13:00] LABS: Basophils Absolute Auto 0.1 10^3/uL (0.0-0.1); Basophils Percent Auto 1.2 % (0.2-2.0); Eosinophils Absolute Auto 0.5 10^3/uL (0.0-0.7); Eosinophils Percent Auto 7.1 % (0.9-7.0); Hematocrit 40.3 % (42.0-54.0); Hemoglobin 13.6 g/dL (14.0-18.0); Immature Granulocytes Abs Auto 0.01 10^3/uL (0.00-0.03); Immature Granulocytes Pct Auto 0.1 % (0.0-0.5); Lymphocytes Absolute Auto 1.8 10^3/uL (1.2-3.8); Lymphocytes Percent Auto 26.3 % (20.5-60.0); Mean Corpuscular HGB Conc 33.7 g/dL (29.9-35.2); Mean Corpuscular Hemoglobin 30.9 pg (25.9-34.0); Mean Corpuscular Volume 91.6 fL (80.0-94.0); Monocytes Absolute Auto 0.7 10^3/uL (0.3-0.8); Monocytes Percent Auto 9.9 % (1.7-12.0); Neutrophils Absolute Auto 3.8 10^3/uL (1.4-6.5); Neutrophils Percent Auto 55.4 % (43.0-75.0); Platelet Count 222 10^3/uL (150-450); Red Cell Distribution Width 16.7 % (11.0-15.0); White Blood Count 6.9 10^3/uL (4.0-11.0)
[2024-06-19 13:58] LABS: Alanine Aminotransferase 17 U/L (16-63); Albumin Globulin Ratio 0.9; Albumin Level 3.6 g/dL (3.4-5.0); Alkaline Phosphatase 143 U/L (46-116); Anion Gap 14.4; Aspartate Amino Transferase 19 U/L (15-37); BUN Creatinine Ratio 9.2; Bilirubin Total 0.2 mg/dL (0.2-1.0); Calcium 8.6 mg/dL (8.5-10.1); Carbon Dioxide 27.4 mmol/L (21.0-32.0); Chloride 101 mmol/L (98-107); Estimated GFR (African America 57 (>=60 mL/min/1.73m^2); Estimated GFR (Non-African Ame 47 (>=60 mL/min/1.73m^2); Glucose 78 mg/dL (74-106); Potassium 4.8 mmol/L (3.5-5.1); Sodium 138 mmol/L (136-145); Thyroid Stimulating Hormone 2.456 uIU/mL (0.358-3.740); Total Protein 7.6 g/dL (6.4-8.2)
[2024-06-19 14:16] LABS: Percent Iron Saturation 34.6 %
[2024-06-19 14:30] LABS: Free T4 0.75 ng/dL (0.76-1.46)
[2024-06-20 08:09] LABS: Vitamin B12 466 pg/mL (232-1245)
== END 2024-06-19 12:31 | disposition home or self-care (01) ==
LOC: LAB 12:31
PROVIDERS: PCP Family Medicine; Visit Provider Registered Nurse
DX: E61.1 Iron deficiency (principal); E53.8 Deficiency of other specified B group vitamins; L65.9 Nonscarring hair loss, unspecified; R63.4 Abnormal weight loss; E06.3 Autoimmune thyroiditis
CPT/HCPCS: 36415; 80053; 82607; 82728; 82746; 83540; 83550; 84439; 84443; 84481; 85025

== ENCOUNTER 2024-07-08 13:22 | Outpatient (OUT) | payer OTHER, MEDICARE, MEDICAID, SELFPAY ==
--- NOTE | 2024-07-08 13:29 | US_ITS ---
The [address] [address] Patient Name: TONI GERBER MRN: [id number] date: 1965 Sex: M Assigned Patient Location: US Current Patient Location: US Accession/Order Number: [id number] Exam Date: 07/08/2024 13:54 Report Date: 07/08/2024 13:59 At the request of: YANELI BONNER NP Procedure: US thyroid THYROID ULTRASOUND CLINICAL DATA: Thyromegaly. COMPARISON: Chest CT 11/07/2023 The right thyroid lobe measures 4.7 x 1.3 x 0.9 cm. The left lobe measures 3.7 x 1.5 x 1.1 cm. The isthmus measures 3 mm. There is uniform echogenicity. Mild hyperemia is seen. No discrete thyroid nodules were measured. US/US thyroid IMPRESSION: NO THYROID NODULARITY. MILD HYPEREMIA. Impression dictated by: Ashley Velasquez M.D.07/08/2024 1:59 PM Dictation Location: [place] [address] Electronically authenticated by: [id number] Y Date: 07/08/2024 13:59
[2024-07-08 15:09] LABS: Free T4 0.85 ng/dL (0.76-1.46)
[2024-07-08 15:15] LABS: Free T3 1.75 pg/mL (2.18-3.98); Thyroid Stimulating Hormone 3.763 uIU/mL (0.358-3.740)
== END 2024-07-08 13:23 | disposition home or self-care (01) ==
LOC: US 13:22
PROVIDERS: PCP Family Medicine; Visit Provider Registered Nurse
DX: E01.0 Iodine-deficiency related diffuse (endemic) goiter (principal); R68.89 Other general symptoms and signs
CPT/HCPCS: 36415; 76536; 84439; 84443; 84481

== ENCOUNTER 2024-11-26 14:06 | Outpatient (OUT) | payer OTHER, MEDICARE, MEDICAID, SELFPAY ==
--- OUTSIDE RECORDS SUMMARY | 2024-11-26 14:40 | XMS_ITS | Encounter Summary ---
Author Organization [facility] Address [address] [facility] [place] [address] Care Team Providers Care Otr Owner Operator Truck Driver Name Role Phone Rylan Andrea MD Primary Care Provider Marilu Craig BENEFITS REPRESENTATIVE Unavailable Nilsa Isidro BENEFITS REPRESENTATIVE Unavailable Morenita Gomes RN Unavailable [phone] Sanjuana Van ASSISTANT BUYER Unavailable Cindy Yeager OD Unavailable Ophelia James DO Unavailable [phone] Rylan Andrea MD Unavailable [phone] Encounter Details Date Type Department Care Team (Late st Contact Info) Description 12/13/2023 Abstract [facility] [address] [place] [phone] Rylan Andrea MD [address] [place] [address] Social History Tobacco Use Types Packs/Day Years Used Date Smoking Tobacco: Former Cigarettes Cigars Passive Smoke Exposure: Never Smokeless Tobacco: Never Alcohol Use Standard Drinks/Week Comments Not Currently 12 (1 standard drink = 0.6 oz pure alcohol) He drinks a 6 pack in 3 days B1300 Health Literacy Answer Date Recor ded How often do you need to hav e someone help you when you read instructions, pamphlets, or other written material from your doctor or pharmacy? Patient declines to respond 11/12/2023 Humiliation, Afraid, Rape, and Kick questionnair e Answer Date Recorded Within the last year, have y ou been afraid of your partner or ex-partner? Patient declined 08/17/2023 Within the last year, have y ou been humiliated or emotionally abused in other ways by your partner or ex-partner? Patient declined 08/17/2023 Within the last year, have y ou been kicked, hit, slapped, or otherwise physically hurt by your partner or ex-partner? Patient declined 08/17/2023 Within the last year, have y ou been raped or forced to have any kind of sexual activity by your partner or ex-partner? Patient declined 08/17/2023 Social Connection and Isolation Panel [NHANES] A nswer Date Recorded In a typical week, how many times do you talk on the phone with family, friends, or neighbors? Once a week 11/12/2023 How often do you get togethe r with friends or relatives? Never 11/12/2023 How often do you attend sikhism or mormonism serv ices? Never 11/12/2023 Do you belong to any clubs o r organizations such as sikhism groups, unions, fraternal or athletic groups, or school groups? No 11/12/2023 How often do you attend meet ings of the clubs or organizations you belong to? Patient declined 11/12/2023 Are you , , di vorced, , never , or living with a partner? 11/12/2023 AUDIT-C Answer Date Recorded Q1: How often do you have a drink containing alc ohol? Patient declined 11/12/2023 Q2: How many drinks containi ng alcohol do you have on a typical day when you are drinking? 10 or more 11/12/2023 Q3: How often do you have si x or more drinks on one occasion? Patient declined 11/12/2023 Overall Financial Resource Strain (CARDIA) Answe r Date Recorded How hard is it for you to pa y for the very basics like food, housing, medical care, and heating? Somewhat hard 11/12/2023 PHQ-2 Answer Date Recorded Patient Health Questionnaire-2 Score 5 12/03/2023 [facility] - Occupational Stress Questionnaire Answer Date Recorded Do you feel stress - tense, restless, nervous, or anxious, or unable to sleep at night because your mind is troubled all the time - these days? To some extent 11/12/2023 Exercise Vital Sign Answer Date Recorde d On average, how many days pe r week do you engage in moderate to strenuous exercise (like a brisk walk)? 0 days 11/12/2023 On average, how many minutes do you engage in exercise at this level? 0 min 11/12/2023 Hunger Vital Sign Answer Date Recorded Within the past 12 months, y ou worried that your food would run out before you got the money to buy more. Sometimes true Within the past 12 months, t he food you bought just didn't last and you didn't have money to get more. Patient declined 05/2023 PRAPARE - Transportation Answer Date Re corded In the past 12 months, has l ack of transportation kept you from medical appointments or from getting medications? No 05/2023 In the past 12 months, has l ack of transportation kept you from meetings, work, or from getting things needed for daily living? No 11/12/2023 Housing Stability Vital Sign Answer Daniel e Recorded In the last 12 months, was t here a time when you were not able to pay the mortgage or rent on time? No 08/17/2023 Number of Places Lived in the Last Year Not on f ile 08/17/2023 In the last 12 months, was t here a time when you did not have a steady place to sleep or slept in a fdc (including now)? Yes 08/17/2023 Housing Stability Vital Sign Answer Daniel e Recorded In the last 12 months, was t here a time when you were not able to pay the mortgage or rent on time? No 11/12/2023 Number of Times Moved in the Last Year Not on fi le 11/12/2023 At any time in the past 12 m [facility], were you homeless or living in a fdc (including now)? No 11/12/2023 Sex and Gender Information Value Date Recorded Sex Assigned at Not on file Legal Sex Male 8:15 PM EDT Gender Identity Male 07/26/2022 8:15 PM EDT Sexual Orientation Not on file documented as of this encounter Plan of Treatment Upcoming Encounters Date Type Department Care Team (Late st Contact Info) Description 01/13/2025 2:00 PM EDT Office Visit [facility] [address] [place] [address] Nilsa Isidro, BENEFITS REPRESENTATIVE [address] [place] [address] documented as of this encounter Visit Diagnoses Not on filedocumented in this encounter Additional Health Concerns Assessment Noted Time PHQ-9 Depression Total Score: 14 024 2:10 PM EDT documented as of this encounter Care Teams Otr Owner Operator Truck Driver Relationship Specialty Start Date End Date Rylan Andrea MD [address] [place] [address] PCP - General Family Medicine 10/16/22 Rylan Andrea MD [address] [place] [address] PCP - [facility] 05/14/23 05/13/24 Marilu Craig NP [address] [place] [address] Nurse Practitioner Family Medicine 04/03/23 07/17/24 Nilsa Isidro NP [address] [place] [address] Nurse Practitioner Pulmonary Disease 04/03/23 Morenita Gomes, RN [address] [place] [address] Registered Nurse Family Medicine 06/18/23 12/14/23 Sanjuana Van LSW [address] [place] [address] Ux Developer Designer Family Medicine 06/18/23 Cindy Yeager OD [address] [place] [address] Referring Physician Optometry 10/31/23 Ophelia James DO [address] [place] [address] Pulmonary Disease 01/10/24 documented as of this encounter
--- OUTSIDE RECORDS SUMMARY | 2024-11-26 14:40 | XMS_ITS | Encounter Summary ---
Author Organization [facility] Address [address] [place] [address] Care Team Providers Care Laborer Concrete Paving Name Role Phone Rylan Andrea MD Primary Care Provider [phone] Marilu Craig WOOL HAT FINISHER Unavailable Nilsa Isidro WOOL HAT FINISHER Unavailable [phone] Morenita Gomes RN Unavailable [phone] Sanjuana Van MANAGER PRODUCT MARKETING Unavailable Cindy Yeager OD Unavailable Ophelia James DO Unavailable [phone] Rylan Andrea MD Unavailable [phone] Encounter Details Date Type Department Care Team (Late st Contact Info) Description 12/22/2022 External Result Encounter [facility] External Department Unsolicited Manuel Varma, DO [address] [place] [address] Social History Tobacco Use Types Packs/Day Years Used Date Smoking Tobacco: Former Cigarettes Passive Smoke Exposure: Never Smokeless Tobacco: Never Alcohol Use Standard Drinks/Week Comments Not Currently 0 (1 standard drink = 0.6 oz pur e alcohol) AUDIT-C Answer Date Recorded Q1: How often do you have a drink containing alcohol? Never 10/19/2022 Q2: How many drinks containi ng alcohol do you have on a typical day when you are drinking? Patient does not drink Q3: How often do you have si x or more drinks on one occasion? Never 10/19/2022 PHQ-2 Answer Date Recorded Patient Health Questionnaire-2 Score 0 10/19/2022 Sex and Gender Information Value Date Recorded Sex Assigned at Not on file Legal Sex Male 8:15 PM EDT Gender Identity Male 07/26/2022 8:15 PM EDT Sexual Orientation Not on file documented as of this encounter Plan of Treatment Upcoming Encounters Date Type Department Care Team (Late st Contact Info) Description 01/13/2025 2:00 PM EDT Office Visit [facility] [address] [place] [address] Nilsa Isidro, WOOL HAT FINISHER [address] [place] [address] documented as of this encounter Procedures Procedure Name Priority Date/Time Associated Diagnosis Comments PET/CT SKULL BASE TO MID THIGH 12/22/2022 11:35 AM EDT documented in this encounter Results * PET/CT skull base to mid thigh (12/22/2022 11:35 AM EDT) Anatomical Region Laterality Modality Body Computed Tomogra phy 12/22/2022 11:3 5 AM EDT Impressions 12/26/2022 12:26 PM EDT NO HYPERMETABOLIC REGION OF UPTAKE SEEN TO SUGGEST FDG AVID MALIGNANCY. Impression dictated by: Victorino Ell[place] Jr., D.O.12/22/2022 11:42 AM Dictation Location: [place] [address] Transcribed By: [facility] 12/22/22 1142 Dictated By: Victorino Ellison Jr, DO 12/22/22 1135 Signed By: <Electronically signed by Victorino Ell[place] Jr, DO in OV> 12/22/22 1142 Narrative 12/26/2022 12:26 PM EDT [facility] Main [address] [address] Nuclear Medicine Report Signed Patient: Kirill Echols MR#: [id number] : 1965 Acct:[id number] Age/Sex: 57 / M ADM Date: 12/22/22 Loc: XT Room: Type: REG RCR Attending Dr: Manuel Varma II DO Copies to: Victorino Ellison Jr, DO Manuel Varma II, DO Ordering Provider: Manuel Varma II, DO Date of Service: 12/22/22 [...] pancreatitis. PET/PET tumor subq tx strat sb-mt Procedure Note Radiology, Radiologist, MD - 12/26/2022 [facility] Main [place] [address] [place] [address] Nuclear Medicine Report Signed Patient: Kirill Echols [facility]#: [id number] : 1965Acct:[id number] Age/Sex: 57 / MADM Date: 12/22/22 Loc: XT Room:Type: REG RCR Attending Dr: Manuel Varma II DO Copies to: Victorino Ellison Jr, DO Manuel Varma II, DO Ordering Provider: Manuel Varma II, DO Date of Service: 12/22/22 PET/PET tumor subq tx strat sb-mt: surveilance PET/CT FUSION IMAGING CLINICAL INFORMATION: Small cell lung cancer COMPARISON : Prior PET/CT 09/15/2022 TECHNIQUE: Noncontrasted CT scan from the base of the skull to the upperthigh followed by PET imaging. Multiplanar PET/CT fusion images. Blood Glucose : 71 mg/dL The F-18 FDG 12.55mCi. FINDINGS: Neck: No abnormal activity. Chest:No abnormal activity. Abdomen/pelvis: No abnormal activity. Soft tissue/bones: No abnormal activity. CT findings: Left-sided port is in place. Emphysematous changes withright-sided pleural thickening. No pericardial or pleural effusions. No pneumothorax. Nofree air or free fluid. Evidence of chronic pancreatitis. PET/PET tumor subq tx strat sb-mt IMPRESSION: NO HYPERMETABOLIC REGION OF UPTAKE SEEN TO SUGGEST FDG AVID MALIGNANCY. Impression dictated by: Victorino Ellison Jr., D.O.12/22/2022 11:42 AM Dictation Location: [place] [address] Transcribed By: [facility] 12/22/22 1142 Dictated By: Victorino Ellison Jr, DO 12/22/22 1135 Signed By: <Electronically signed by Victorino Ellison Jr, inOV> 12/22/22 1142 Manuel Varma DO IMG CT PROCEDURES Final R esult documented in this encounter Visit Diagnoses Not on filedocumented in this encounter Care Teams Laborer Concrete Paving Relationship Specialty Start Date End Date Rylan Andrea MD [address] [place] [address] PCP - General Family Medicine 10/16/22 Rylan Andrea MD [address] [place] [address] PCP - [facility] 05/14/23 05/13/24 Marilu Craig NP [address] [place] [address] Nurse Practitioner Family Medicine 04/03/23 07/17/24 Nilsa Isidro NP [address] [place] [address] Nurse Practitioner Pulmonary Disease 04/03/23 Morenita Gomes, RN [address] [place] [address] Registered Nurse Family Medicine 06/18/23 12/14/23 Sanjuana Van LSW [address] [place] [address] Mainspring Torque Tester Family Medicine 06/18/23 Cindy Yeager OD [address] [place] [address] Referring Physician Optometry 10/31/23 Ophelia James DO [address] [place] [address] Pulmonary Disease 01/10/24 documented as of this encounter
--- OUTSIDE RECORDS SUMMARY | 2024-11-26 14:40 | XMS_ITS | Encounter Summary ---
Author Organization [facility] Address [address] [facility] [place] [address] Care Team Providers Care Ride Assembly Supervisor Name Role Phone Rylan Andrea MD Primary Care Provider Marilu Craig SPECTACLE TRUER Unavailable Nilsa Isidro SPECTACLE TRUER Unavailable [phone] Morenita Gomes RN Unavailable [phone] Sanjuana Van EMR SPECIALIST Unavailable Cindy Yeager OD Unavailable Ophelia James DO Unavailable [phone] Rylan Andrea MD Unavailable [phone] Encounter Details Date Type Department Care Team (Late st Contact Info) Description 12/25/2022 Orders Only [facility] [address] [place] [address] Rylan Andrea MD [address] [place] [address] Social History Tobacco Use Types [...] 01/13/2025 2:00 PM EDT Office Visit [facility] [address] [place] [address] Nilsa Isidro, ELLE [address] [place] [address] documented as of this encounter Visit Diagnoses Not on filedocumented in this encounter Care Teams Ride Assembly Supervisor Relationship Specialty Start Date End Date Rylan Andrea MD [address] [place] [address] PCP - General Family Medicine 10/16/22 Rylan Andrea MD [address] [place] [address] PCP - [facility] 05/14/23 05/13/24 Marilu Craig NP [address] [place] [address] Nurse Practitioner Family Medicine 04/03/23 07/17/24 Nilsa Isidro NP [address] [place] [address] Nurse Practitioner Pulmonary Disease 04/03/23 Morenita Gomes RN [address] [place], [place] [phone] Registered Nurse Family Medicine 06/18/23 12/14/23 Sanjuana Van, APOLINAR [address] [place] [address] Mine Deputy Family Medicine 06/18/23 Cindy Yeager OD [address] [place] [address] Referring Physician Optometry 10/31/23 Ophelia James DO [address] [place] [address] Pulmonary Disease 01/10/24 documented as of this encounter
--- OUTSIDE RECORDS SUMMARY | 2024-11-26 14:40 | XMS_ITS | Encounter Summary ---
Author Organization [facility] Address [address] [facility] [place] [address] Care Team Providers Care Office Support Specialist Name Role Phone Rylan Andrea MD Primary Care Provider [phone] Marilu Craig PRESCHOOL EDUCATION DIRECTOR Unavailable Nilsa Isidro PRESCHOOL EDUCATION DIRECTOR Unavailable [phone] Sanjuana Van FOUNDRY MOLDER Unavailable Cindy Yeager OD Unavailable Ophelia James DO Unavailable [phone] Rylan Andrea MD Unavailable [phone] Encounter Details Date Type Department Care Team (Late st Contact Info) Description 12/17/2023 Abstract [facility] [address] [place] [phone] Rylan Andrea MD [address] [place] [address] Social History Tobacco Use Types [...] Never 11/12/2023 How often do you attend jain or hindu serv ices? Never 11/12/2023 Do you belong to any clubs o r organizations such as jain groups, unions, fraternal or athletic groups, or [...] Recorded Patient Health Questionnaire-2 Score 5 12/03/2023 [facility] - Occupational [...] place to sleep or slept in a usp (including now)? Yes 08/17/2023 Housing Stability Vital Sign Answer Daniel e Recorded In the last 12 months, was t here a time when you were not able to pay the mortgage or rent on time? No 11/12/2023 Number of Times Moved in the Last Year Not on fi le 11/12/2023 At any time in the past 12 m [facility], were you homeless or living in a usp (including now)? No 11/12/2023 Sex and Gender [...] Visit [facility] [address] [place] [phone] Nilsa Isidro, EL[place] [address] [place] [address] documented as of this encounter Visit Diagnoses Not on filedocumented in this encounter Additional Health Concerns Assessment Noted Time PHQ-9 Depression Total Score: 14 024 2:10 PM EDT documented as of this encounter Care Teams Office Support Specialist Relationship Specialty Start Date End Date Rylan Andrea MD [address] [place] [id number] PCP - General Family Medicine 10/16/22 Rylan Andrea MD [address] [place] [id number] PCP - [facility] 05/14/23 05/13/24 Marilu Craig NP [address] [place] [address] Nurse Practitioner Family Medicine 04/03/23 07/17/24 Nilsa Isidro NP [address] [place] [address] Nurse Practitioner Pulmonary Disease 04/03/23 Sanjuana Van LSW [address] [place] [address] Home Energy Consultant Supervisor Family Medicine 06/18/23 Cindy Yeager OD [address] [place] [address] Referring Physician Optometry 10/31/23 Ophelia James DO [address] [place] [address] Pulmonary Disease 01/10/24 documented as of this encounter
--- OUTSIDE RECORDS SUMMARY | 2024-11-26 14:40 | XMS_ITS | Encounter Summary ---
Author Organization [facility] Address [address] [facility] [place] [address] Care Team Providers Care Corset Fitter Name Role Phone Rylan Andrea MD Primary Care Provider [phone] Marilu Craig POSTAGE MACHINE OPERATOR Unavailable Nilsa Isidro POSTAGE MACHINE OPERATOR Unavailable [phone] Sanjuana Van DENTAL CHAIRSIDE ASSISTANT Unavailable Cindy Yeager OD Unavailable Ophelia James DO Unavailable [phone] Rylan Andrea MD Unavailable [phone] Encounter Details Date Type Department Care Team (Late st Contact Info) Description 12/18/2023 Orders Only [facility] [address] [place] [address] Rylan Andrea MD [address] [place] [address] Social History Tobacco Use Types [...] Never 11/12/2023 How often do you attend anabaptism or druze serv ices? Never 11/12/2023 Do you belong to any clubs o r organizations such as anabaptism groups, unions, fraternal or athletic groups, or [...] Recorded Patient Health Questionnaire-2 Score 5 12/03/2023 [facility] of Occupat ional Health - Occupational Stress [...] place to sleep or slept in a nursing home (including now)? Yes 08/17/2023 Housing Stability Vital Sign Answer Daniel e Recorded In the last 12 months, was t here a time when you were not able to pay the mortgage or rent on time? No 11/12/2023 Number of Times Moved in the Last Year Not on fi le 11/12/2023 At any time in the past 12 m [facility], were you homeless or living in a nursing home (including now)? No 11/12/2023 Sex and Gender [...] Office Visit [facility] [address] [place] [address] Nilsa Isidro NP [address] [place] [address] documented as of this encounter Procedures Procedure Name Priority Date/Time Associated Diagnosis Comments TRANSTHORACIC ECHO (TTE) LIMITED Routine 12/17/2023 8:33 AM EDT documented in this encounter Results * Transthoracic echo (TTE) limited (12/17/2023 8:33 AM EDT) Anatomical Region Laterality Modality Heart Ultrasound us Rylan Andrea MD CV ECHO PROCEDURES Final Resul t documented in this encounter Visit Diagnoses Not on filedocumented in this encounter Additional Health Concerns Assessment Noted Time PHQ-9 Depression Total Score: 14 024 2:10 PM EDT documented as of this encounter Care Teams Corset Fitter Relationship Specialty Start Date End Date Rylan Andrea MD [address] [place] [address] PCP - General Family Medicine 10/16/22 Rylan Andrea MD [address] [place] [address] PCP - [facility] 05/14/23 05/13/24 Marilu Craig NP [address] [place] [address] Nurse Practitioner Family Medicine 04/03/23 07/17/24 Nilsa Isidro NP [address] [place] [address] Nurse Practitioner Pulmonary Disease 04/03/23 Sanjuana Van LSW [address] [place] [address] Lumber Sticker Family Medicine 06/18/23 Cindy Yeager OD [address] [place] [address] Referring Physician Optometry 10/31/23 Ophelia James DO [address] [place] [address] Pulmonary Disease 01/10/24 documented as of this encounter
--- OUTSIDE RECORDS SUMMARY | 2024-11-26 14:40 | XMS_ITS | Encounter Summary ---
Author Organization [facility] Address [address] [facility] [place] [address] Care Team Providers Care Airborne And Air Delivery Specialist Name Role Phone Rylan Andrea MD Primary Care Provider Marilu Craig UNEMPLOYMENT SPECIALIST Unavailable Nilsa Isidro UNEMPLOYMENT SPECIALIST Unavailable Sanjuana Van PET STYLIST Unavailable Cindy Yeager OD Unavailable Ophelia James DO Unavailable [phone] Rylan Andrea MD Unavailable [phone] Encounter Details Date Type Department Care Team (Late st Contact Info) Description 12/18/2023 Abstract [facility] [address] [place] [phone] Rylan Andrea MD [address] [place] [address] Social History Tobacco Use Types [...] Never 11/12/2023 How often do you attend yazdanism or voodoo serv ices? Never 11/12/2023 Do you belong to any clubs o r organizations such as yazdanism groups, unions, fraternal or athletic groups, or [...] Recorded Patient Health Questionnaire-2 Score 5 12/03/2023 [facility] of Occupat ional Health - Occupational Stress [...] place to sleep or slept in a prison (including now)? Yes 08/17/2023 Housing Stability Vital Sign Answer Daniel e Recorded In the last 12 months, was t here a time when you were not able to pay the mortgage or rent on time? No 11/12/2023 Number of Times Moved in the Last Year Not on fi le 11/12/2023 At any time in the past 12 m [facility], were you homeless or living in a prison (including now)? No 11/12/2023 Sex and Gender [...] Visit [facility] [address] [place] [id number] Nilsa Isidro, [place] [address] [place] [address] documented as of this encounter Visit Diagnoses Not on filedocumented in this encounter Additional Health Concerns Assessment Noted Time PHQ-9 Depression Total Score: 14 024 2:10 PM EDT documented as of this encounter Care Teams Airborne And Air Delivery Specialist Relationship Specialty Start Date End Date Rylan Andrea MD [address] [place] [id number] PCP - General Family Medicine 10/16/22 Rylan Andrea MD [address] [place] [id number] PCP - [facility] 05/14/23 05/13/24 Marilu Craig NP [address] [place] [address] Nurse Practitioner Family Medicine 04/03/23 07/17/24 Nilsa Isidro NP [address] [place] [address] Nurse Practitioner Pulmonary Disease 04/03/23 Sanjuana Van LSW [address] [place] [address] Synthetic Gem Press Operator Family Medicine 06/18/23 Cindy Yeager OD [address] [place] [address] Referring Physician Optometry 10/31/23 Ophelia James DO [address] [place] [address] Pulmonary Disease 01/10/24 documented as of this encounter
--- OUTSIDE RECORDS SUMMARY | 2024-11-26 14:41 | XMS_ITS | Encounter Summary ---
Author Organization [facility] Address [address] [facility] [place] [address] Care Team Providers Care Sound Technician Name Role Phone Rylan Andrea MD Primary Care Provider Marilu Craig DISASSEMBLER PRODUCT Unavailable Nilsa Isidro DISASSEMBLER PRODUCT Unavailable Morenita Gomes RN Unavailable [phone] Sanjuana Van APARTMENT LEASING SPECIALIST Unavailable Cindy Yeager OD Unavailable Ophelia James DO Unavailable [phone] Rylan Andrea MD Unavailable [phone] Encounter Details Date Type Department Care Team (Late st Contact Info) Description 11/07/2023 Abstract [facility] [address] [place] [phone] Rylan Andrea MD [address] [place] [address] Social History Tobacco Use Types Packs/Day Years Used Date Smoking Tobacco: Former Cigarettes Cigars Passive Smoke Exposure: Never Smokeless Tobacco: Never Alcohol Use Standard Drinks/Week Comments Not Currently 50 (1 standard drink = 0.6 oz pu re alcohol) He drinks 3-4 beers daily Humiliation, Afraid, Rape, and Kick questionnair e [...] the phone with family, friends, or neighbors? Three times a week 08/17/19 How often do you get togethe r with friends or relatives? Twice a week 08/17/2023 How often do you attend chur ch or evangelical services? Never 08/17/2023 Do you belong to any clubs o r organizations such as christianity groups, unions, fraternal or athletic groups, or school groups? Yes 08/17/2023 How often do you attend meet ings of the clubs or organizations you belong to? 1 to 4 times per year 08/17/2023 Are you , , di vorced, , never , or living with a partner? 08/17/2023 AUDIT-C Answer Date Recorded Q1: How often do you have a drink containing alcohol? 4 or more times a week 10/02/2023 Q2: How many drinks containi ng alcohol do you have on a typical day when you are drinking? 10 or more Q3: How often do you have si x or more drinks on one occasion? Daily or almost daily 10/02/2023 Overall Financial Resource Strain (CARDIA) Answe r Date Recorded How hard is it for you to pa y for the very basics like food, housing, medical care, and heating? Somewhat hard 08/17/2023 PHQ-2 Answer Date Recorded Patient Health Questionnaire-2 Score 6 10/04/2023 [facility] of Occupat ional Health - Occupational Stress Questionnaire Answer Date Recorded Do you feel stress - tense, restless, nervous, or anxious, or unable to sleep at night because your mind is troubled all the time - these days? Rather much 08/17/2023 Exercise Vital Sign Answer Date Recorde d On average, how many days pe r week do you engage in moderate to strenuous exercise (like a brisk walk)? 3 days 08/17/2023 On average, how many minutes do you engage in exercise at this level? 20 min 08/17/2023 Hunger Vital Sign Answer Date Recorded Within the past 12 months, y ou worried that your food would run out before you got the money to buy more. Sometimes true Within the past 12 months, t he food you bought just didn't last and you didn't have money to get more. Sometimes true 09/2023 PRAPARE - Transportation Answer Date Re corded In the past 12 months, has l ack of transportation kept you from medical appointments or from getting medications? No 09/2023 In the past 12 months, has l ack of transportation kept you from meetings, work, or from getting things needed for daily living? No 08/17/2023 Housing Stability Vital Sign Answer Daniel [...] place to sleep or slept in a halfway (including now)? Yes 08/17/2023 Sex and Gender Information Value Date Recorded Sex Assigned at Not on file Legal Sex Male 8:15 PM EDT Gender Identity Male 07/26/2022 8:15 PM EDT Sexual Orientation Not on file documented as of this encounter Plan of Treatment Upcoming Encounters Date Type Department Care Team (Late st Contact Info) Description 01/13/2025 2:00 PM EDT Office Visit [facility] [address] [place] [address] Nilsa Isidro, DISASSEMBLER PRODUCT [address] [place] [phone] documented as of this encounter Visit Diagnoses Not on filedocumented in this encounter Additional Health Concerns Assessment Noted Time PHQ-9 Depression Total Score: 21 024 3:07 PM EDT documented as of this encounter Care Teams Sound Technician Relationship Specialty Start Date End Date Rylan Andrea MD [address] [place] [address] PCP - General Family Medicine 10/16/22 Rylan Andrea MD [address] [place] [address] PCP - [facility] 05/14/23 05/13/24 Marilu Craig NP [address] [place] [address] Nurse Practitioner Family Medicine 04/03/23 07/17/24 Nilsa Isidro NP [address] [place] [address] Nurse Practitioner Pulmonary Disease 04/03/23 Morenita Gomes, ARTHUR [address] [place] [address] Registered Nurse Family Medicine 06/18/23 12/14/23 Sanjuana Vna LSW [address] [place] [address] Plumbing Drafter Family Medicine 06/18/23 Cindy Yeager OD [address] [place] [address] Referring Physician Optometry 10/31/23 Ophelia James DO [address] [place] [address] Pulmonary Disease 01/10/24 documented as of this encounter
--- OUTSIDE RECORDS SUMMARY | 2024-11-26 14:41 | XMS_ITS | Encounter Summary ---
Author Organization [facility] Address [address] [facility] [place] [address] Care Team Providers Care Domestic Violence Advocate Name Role Phone Rylan Andrea MD Primary Care Provider [phone] Nilsa Isidro PICK UP AND DELIVERY DRIVER Unavailable [phone] Sanjuana Van Unavailable Cindy Yeager OD Unavailable Ophelia James DO Unavailable [phone] Encounter Details Date Type Department Care Team (Late st Contact Info) Description 11/26/2024 Patient Outreach [facility] [address] [address] Sanjuana Van LSW [address] [place] [address] Social History Tobacco Use Types Packs/Day Years Used Date Smoking Tobacco: Former Cigarettes Cigars Passive Smoke Exposure: Never Smokeless Tobacco: Never Alcohol Use Standard Drinks/Week Comments Yes 6 (1 standard drink = 0.6 oz pure alcohol) Pt drinks a 6 pack per week if that B1300 Health Literacy Answer Date Recor ded [...] Never 11/12/2023 How often do you attend scientology or anabaptist serv ices? Never 11/12/2023 Do you belong to any clubs o r organizations such as scientology groups, unions, fraternal or athletic groups, or school groups? No 11/12/2023 How often do you attend meet ings of the clubs or organizations you belong to? Patient declined 11/12/2023 Are you , , di vorced, , never , or living with a partner? 11/12/2023 AUDIT-C Answer Date Recorded Q1: How often do you have a drink containing alc ohol? 2-3 times a week 09/15/2024 Q2: How many drinks containi ng alcohol do you have on a typical day when you are drinking? 1 or 2 09/15/2024 Q3: How often do you have si x or more drinks on one occasion? Never 09/15/2024 Overall Financial Resource Strain (CARDIA) Answe r Date Recorded How hard is it for you to pa y for the very basics like food, housing, medical care, and heating? Somewhat hard 11/12/2023 PHQ-2 Answer Date Recorded Patient Health Questionnaire-2 Score 6 09/15/2024 [facility] [place] of Occupat ional Health - Occupational Stress [...] place to sleep or slept in a group home (including now)? Yes 08/17/2023 Housing Stability Vital Sign Answer Daniel e Recorded In the last 12 months, was t here a time when you were not able to pay the mortgage or rent on time? No 11/12/2023 Number of Times Moved in the Last Year Not on fi le 11/12/2023 At any time in the past 12 m [facility], were you homeless or living in a group home (including now)? No 11/12/2023 Sex and Gender Information Value Date Recorded Sex Assigned at Not on file Legal Sex Male 8:15 PM EDT Gender Identity Male 07/26/2022 8:15 PM EDT Sexual Orientation Not on file documented as of this encounter Progress Notes * APOLINAR Brasher - 11/26/2024 1:15 PM EDT Contacted pt for monthly monitor and he states he is doing well. Reports his appetite still isn't the greatest. Reports mood is stable. Discussed pending labs still needing completed that were ordered in September. He would like these sent to [place] which they were back in September so he will try to get completed. Reports overall he is managing well and denies any current needs. documented in this encounter Plan of Treatment Upcoming Encounters Date Type Department Care Team (Late st Contact Info) Description 01/13/2025 2:00 PM EDT Office Visit [facility] [address] [place] [phone] Nilsa Isidro NP [address] [place] [address] documented as of this encounter Goals Goal Patient Goal Type Associated Problems Recent Progress Patient-Stated? Author Help patient manage antidepressant medication Care Plan Patient on antidepressant monitoring plan No Nilsa Isidro NP documented as of this encounter Visit Diagnoses Diagnosis Chronic obstructive pulmonary disease, unspecified COPD type (HCC)- Primary Major depressive disorder, recurrent severe without psychotic features (HCC) documented in this encounter Additional Health Concerns Active Problems Noted Date Diagnosed Date Patient on antidepressant monitoring plan 2024 Assessment Noted Time PHQ-9 Depression Total Score: 18 025 2:05 PM EDT documented as of this encounter Care Teams Domestic Violence Advocate Relationship Specialty Start Date End Date Rylan Andrea MD [address] [place] [address] PCP - General Family Medicine 10/16/22 Nilsa Isidro NP [address] [place] [phone] Nurse Practitioner Pulmonary Disease 04/03/23 Sanjuana Vna LSW [address] [place] [address] Web Programmer Family Medicine 06/18/23 Cindy Yeager OD [address] [place] [address] Referring Physician Optometry 10/31/23 Ophelia James DO [address] [place] [address] Pulmonary Disease 01/10/24 documented as of this encounter
--- OUTSIDE RECORDS SUMMARY | 2024-11-26 14:41 | XMS_ITS | Encounter Summary ---
Author Organization [facility] Address [address] [facility] [place] [address] Care Team Providers Care System Dispatcher Name Role Phone Rylan Andrea MD Primary Care Provider [phone] Marilu Craig SLAT BASKET TOP MAKER Unavailable Nilsa Isidro SLAT BASKET TOP MAKER Unavailable [phone] Sanjuana Van OPTICAL ENGINEERING TECHNICIAN Unavailable Cindy Yeager OD Unavailable Ophelia James DO Unavailable [phone] Rylan Andrea MD Unavailable [phone] Encounter Details Date Type Department Care Team (Late st Contact Info) Description 01/07/2024 Abstract [facility] [address] [place] [address] Rylan Andrea MD [address] [place] [address] Social History Tobacco Use Types [...] Never 11/12/2023 How often do you attend presybeterian or jainism serv ices? Never 11/12/2023 Do you belong to any clubs o r organizations such as presybeterian groups, unions, fraternal or athletic groups, or [...] Recorded Patient Health Questionnaire-2 Score 5 12/03/2023 [facility] of Occupat ional Health - Occupational [...] any time in the past 12 m [facility], were you homeless or living in [...] Visit [facility] [address] [place] [phone] Nilsa Isidro, [place] [address] [place] [address] documented as of this encounter Visit Diagnoses Not on filedocumented in this encounter Additional Health Concerns Assessment Noted Time PHQ-9 Depression Total Score: 14 024 2:10 PM EDT documented as of this encounter Care Teams System Dispatcher Relationship Specialty Start Date End Date Rylan Andrea MD [address] [place] [id number] PCP - General Family Medicine 10/16/22 Rylan Andrea MD [address] [place] [id number] PCP - [facility] 05/14/23 05/13/24 Marilu Craig NP [address] [place] [address] Nurse Practitioner Family Medicine 04/03/23 07/17/24 Nilsa Isidro NP [address] [place] [address] Nurse Practitioner Pulmonary Disease 04/03/23 Sanjuana Van LSW [address] [place] [address] Waterworks Operator Family Medicine 06/18/23 Cindy Yeager OD [address] [place] [address] Referring Physician Optometry 10/31/23 Ophelia James DO [address] [place] [address] Pulmonary Disease 01/10/24 documented as of this encounter
--- OUTSIDE RECORDS SUMMARY | 2024-11-26 14:41 | XMS_ITS | Patient Health Record ---
Author Organization [facility] Address [address] [place] [address] Care Team Providers Care Home Health Clinician Name Role Phone Brook Lemon Primary Care Provider Reason For Referral No Information Problems Problem Type SNOMED Code ICD Code Onset Dates Problem Status W/U Status Risk Notes Problem Depression (546987086) Depression (F32.9) Active confirmed Plan Of Treatment No Information Insurance Providers Payer Name Payer Address Payer Phone Subscriber Number Group Number Insured Name Patient Relationship to Insured Coverage Start Date Coverage End Date [facility] COMMERCIAL MEDICAL CLAIMS [address] [address] [place] [address] [phone] [id number] TONI GERBER Self - patient is the insured 2 [employer] MEDICAID [place] [address] [place] [address] [phone] [id number] TONI GERBER Self - patient is the insured 2 MEDICARE [place] 1 [facility] [place] [address] [id number] TONI GERBER Self - patient is the insured 2 DENTAL MEDICAID [place] [address] [place] [address] [id number] TONI GERBER Self - patient is the insured 2
--- OUTSIDE RECORDS SUMMARY | 2024-11-26 14:41 | XMS_ITS | Clinical Summary ---
Author Organization [facility] Address [address] [place] [address] Care Team Providers Care Dot Net Developer Name Role Phone Rylan Andrea MD Primary Care Provider [phone] Nilsa Isidro CHURCH MUSICIAN Unavailable Sanjuana Van CERTIFIED VETERINARY TECHNICIAN Unavailable Cindy Yeager OD Unavailable Ophelia James DO Unavailable [phone] Allergies Active Allergy Reactions Criticality Noted Date Comments Chlordiazepoxide Swelling High 06/29/2023 Edema Lisinopril Swelling High 09/25/2022 Swelling of Lip/Tongue/Throat Sertraline Swelling High 09/25/2022 Swelling of Lip/Tongue/Throat Medications acetaminophen (Tylenol) 325 MG tablet 650 mg Orally Q 8 hrs as needed 12/04/2019 Active Aspirin Low Dose 81 MG EC tablet Take 81 mg by mouth in the morning. as directed. 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 Take before meals. 03/17/2024 Active Fluticasone-Umec lidin-Vilant (Trelegy Ellipta) 100-62.5-25 MCG/ACT aerosol powderIndication s:Chronic obstructive pulmonary disease, unspecified COPD type (HCC) Inhale 1 puff Daily 03/17/2024 Active pantoprazole (ProtoNix) 40 MG EC tablet Daily 02/18/2024 Active escitalopram (Lexapro) 5 MG tabletIndication s:Anxiety,Modera te episode of recurrent major depressive disorder (HCC),Severe recurrent major depression without psychotic features (HCC),Severe episode of recurrent major depressive disorder, without psychotic features (HCC) Take 1 tablet (5 mg) by mouth Daily 30 tablet 2 09/15/2024 12/15/19 25 Active QUEtiapine (SEROquel) 100 MG tabletIndication s:Current moderate episode of major depressive disorder without prior episode (HCC) Take 1 tablet (100 mg) by mouth 3 (three) times a day Take 1 tablet in the morning and 2 tablets at night 270 tablet 10/20/2024 01/19/20 25 Active melatonin 3 MG tabletIndication s:Primary insomnia Take 1 tablet (3 mg) by mouth as needed at bedtime for sleep 90 tablet 3 10/20/2024 10/21/19 26 Active Active Problems Problem Noted Date Diagnosed Date Age-related nuclear cataract of both eyes 2023 Glaucoma suspect of both eyes 10/31/2023 Refusal of statin medication by patient 09/10/19 24 Major depressive disorder, single episode, unspe cified 10/19/2022 Pancreatitis ([facility]) 09/25/2022 Abnormal results of liver function studies 09/25 Alcohol abuse 09/25/2022 Alcoholism 09/25/2022 Allodynia 09/25/2022 Anemia due to antineoplastic chemotherapy 2022 Anxiety 09/25/2022 COPD (chronic obstructive pulmonary disease) Appetite loss 09/25/2022 Decreased appetite 09/25/2022 Erectile dysfunction due to diseases classified elsewhere 09/25/2022 Essential hypertension 09/25/2022 GERD (gastroesophageal reflux disease) Gingivitis 09/25/2022 Hypoalbuminemia 09/25/2022 Insomnia 09/25/2022 Mass of soft tissue of right upper extremity Mixed anxiety and depressive disorder 09/25/2022 Neuropathy of right hand 09/25/2022 NSTEMI (non-ST elevated myocardial infarction) 0 09/25/2022 Osteoarthritis 09/25/2022 Panic attacks 09/25/2022 Recurrent major depressive disorder 09/25/2022 Severe recurrent major depre ssion without psychotic features 09/25/2022 Severe episode of recurrent major depressive disorder, without psychotic features 09/25/2022 Sleep apnea 09/25/2022 Small cell carcinoma 09/25/2022 Small cell lung cancer in adult 09/25/2022 Smoker 09/25/2022 Thoracic outlet syndrome 09/25/2022 Vitamin D deficiency 09/25/2022 History of primary malignant neoplasm of bronchu s 08/13/2020 Acute non-ST segment elevation myocardial infarc tion 03/05/2020 Malignant neoplasm of lung 12/11/2019 Disorder of soft tissue 10/21/2019 Chronic obstructive pulmonary disease 08/15/2019 Panic disorder 07/25/2019 Alcohol use disorder, mild, abuse 07/22/2019 Anxiety and depression 07/22/2019 Elevated liver enzymes 06/18/2018 Loss of appetite 05/29/2018 Hypertension 08/02/2017 Major depressive disorder, r ecurrent severe without psychotic features 08/02/2017 Resolved Problems Problem Noted Date Diagnosed Date Resolved Date Hx of small bowel obstruction 04/03/2024 04/03/2024 Abdominal cramping 04/03/2024 Septicemia due to E. coli 01/02/2024 Costochondral junction syndrome 12/21/2023 01/02/2024 Hyposmolality syndrome 12/21/202301/01 Hypothyroidism 12/21/2023 01/02/2024 Abdominal pain 11/08/2023 11/08/2023 Acute alcoholism 11/08/2023 11/08/2023 Adenopathy 11/08/2023 11/08/2023 Adverse reaction to LUIS inhibitor drug 11/08/2023 11/08/2023 Altered mental status 11/08/20232023 Amnesia 11/08/2023 11/08/2023 Anemia 11/08/2023 11/08/2023 Acute hypokalemia 11/08/2023 11/08/2023 Chronic nausea 11/08/2023 11/08/2023 Counseling regarding advanced directives 11/08/2023 11/08/2023 Diarrhea 11/08/2023 11/08/2023 Edema 11/08/2023 11/08/2023 Joint pain 11/08/2023 11/08/2023 Neck pain 11/08/2023 11/08/2023 Pain due to neoplasm 11/08/2023 024 Pneumothorax 11/08/2023 11/08/2023 Pyuria 11/08/2023 11/08/2023 Shortness of breath 11/08/2023 11/08/19 Suicidal ideation 11/08/2023 11/08/2023 Tachycardia 11/08/2023 11/08/[address] 11/08/2023 0 11/08/2023 Urinary retention with incom plete bladder emptying 11/08/2023 11/08/2023 Vomiting 11/08/2023 11/08/2023 Weight loss 11/08/2023 11/08/2023 Encounters Date Type Department Care Team Description 11/26/2024 Patient Outreach [facility] [id number] [place] [address] Sanjuana Van, CERTIFIED VETERINARY TECHNICIAN 10/29/2024 Patient Outreach [facility] [id number] [place] [address] Sanjuana Van [facility] 10/20/2024 Refill [facility] [address] [place] [address] Cici Kelly MA Current moderate episode of major depressive disorder without prior episode (HCC); Primary insomnia 10/20/2024 Refill [facility] [address] [place] [address] Jumana Orellana MA Current moderate episode of major depressive disorder without prior episode (HCC); Primary insomnia 09/30/2024 Patient Outreach [facility] [address] [place] [address] Sanjuana Van, CERTIFIED VETERINARY TECHNICIAN 09/17/2024 Abstract [facility] [address] [place] [address] Nilsa Isidro NP 09/15/2024 2:00 PM EDT Follow-Up [facility] [address] [place] [address] Lause, Nilsa R, CHURCH MUSICIAN Anxiety (Primary Dx); 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 ; Primary insomnia; Moderate episode of recurrent major depressive disorder (HCC); Severe recurrent major depression without psychotic features (HCC); Severe episode of recurrent major depressive disorder, without psychotic features (HCC) 09/15/2024 Travel 09/02/2024 Patient Outreach [facility] [address] [place] [address] Sanjuana Van LSW from Last 3 Months Immunizations Immunization Administration Dates Next Due Influenza, High-dose Seasona l, Quadrivalent, Preservative Free 02/13/2020 Influenza, injectable, quadrivalent, preservativ e free 03/24/2020,03/15/2020 Family History Medical History Relation Name Comments Diabetes Brother No Known Problems Daughter Cancer Father Heart disease Father Cancer Mother Diabetes Mother Hypertension Mother Relation Name Status Comments Brother x4 Daughter x2 Father Mother Sister x4 Social History Tobacco Use Types Packs/Day Years Used Date Smoking Tobacco: Former Cigarettes Cigars Passive Smoke Exposure: Never Smokeless Tobacco: Never Tobacco Cessation:Counseling Given: Not Answered Alcohol Use Standard Drinks/Week Comments Yes 6 [...] Never 11/12/2023 How often do you attend uatsdin or pentecostal serv ices? Never 11/12/2023 Do you belong to any clubs o r organizations such as uatsdin groups, unions, fraternal or athletic groups, or [...] Recorded Patient Health Questionnaire-2 Score 6 09/15/2024 [facility] Stress Questionnaire Answer [...] place to sleep or slept in a skilled nursing (including now)? Yes 08/17/2023 Housing Stability Vital [...] were you homeless or living in a skilled nursing (including now)? No 11/12/2023 Sex and Gender Information Value Date Recorded Sex Assigned at Not on file Legal Sex Male 8:15 PM EDT Gender Identity Male 07/26/2022 8:15 PM EDT Sexual Orientation Not on file Last Filed Vital Signs Vital Sign Reading Time Taken Comments Blood Pressure 122/70 09/15/2024 2:02 PM EDT Pulse 102 09/15/2024 2:02 PM EDT Temperature 37 C (98.6 F) 09/15/2024 2:02 PM EDT Respiratory Rate 20 09/15/2024 2:02 PM EDT Oxygen Saturation 97% 09/15/2024 2:02 PM EDT Inhaled Oxygen Concentration - - Weight 71 kg (156 lb 9.6 oz) 09/15/2024 2:02 PM EDT Height 182.9 cm (6') 09/15/2024 2:02 PM EDT Body Mass Index 21.24 09/15/2024 2:02 PM EDT Plan of Treatment Upcoming Encounters Date Type Department Care Team (Late st Contact Info) Description 01/13/2025 2:00 PM EDT Office Visit [facility] [address] [place] [address] Nilsa Isidro NP [address] [place] [address] Health Maintenance Due Date Last Done Comments CT Colonography 1965 FIT-DNA 1965 FIT 1965 FOBT 1965 Sigmoidoscopy 1965 Influenza Vaccine (#1) 2025 03/24/2020, 2019, 02/13/2020 Medicare Annual Wellness (AWV) 01/20/2025 01/21/2024 Colonoscopy 02/17/2034 02/18/2024, 10/24/2017 Colorectal Cancer Screening 02/17/2034 Goals Goal Patient Goal Type Associated Problems Recent Progress Patient-Stated? Author Help patient manage antidepressant medication Care Plan Patient on antidepressant monitoring plan No Nilsa Isidro NP Procedures Procedure Name Priority Date/Time Associated Diagnosis Comments COLONOSCOPY DIAGNOSTIC Routine 02/18/2024 2:34 PM EDT from Last 3 Months or Most Recently Relevant to Health Maintenance Results * COLONOSCOPY DIAGNOSTIC (02/18/2024 2:34 PM EDT) Anatomical Region Laterality Modality Radiographic Anna ging Marilu Craig NP IMG XR PROCEDURES Final Result from Last 3 Months or Most Recently Relevant to Health Maintenance Additional Health Concerns Active Problems Noted Date Diagnosed Date Patient on antidepressant monitoring plan 2024 Insurance [id number] [place] [address] MEDICAID [place] [employer] MEDICARE [facility] Care Teams Dot Net Developer Relationship Specialty Start Date End Date Rylan Andrea MD [address] [place] [address] PCP - General Family Medicine 10/16/22 Nilsa Isidro NP [address] [place] [address] Nurse Practitioner Pulmonary Disease 04/03/23 Sanjuana Van LSW [address] [place] [address] Public Information Coordinator Family Medicine 06/18/23 Cindy Yeager OD [address] [place] [address] Referring Physician Optometry 10/31/23 Ophelia James DO [address] [place] [address] Pulmonary Disease 01/10/24
--- OUTSIDE RECORDS SUMMARY | 2024-11-26 14:41 | XMS_ITS | Encounter Summary ---
Author Organization [facility] Address [address] [facility] [place] [address] Care Team Providers Care Veterinary Attendant Name Role Phone Rylan Andrea MD Primary Care Provider Marilu Craig NP Unavailable Nilsa Isidro INTERNAL RECRUITER Unavailable [phone] Sanjuana VanW Unavailable Cindy Yeager OD Unavailable Ophelia Jamse DO Unavailable [phone] Encounter Details Date Type Department Care Team (Late st Contact Info) Description 07/14/2024 Abstract [facility] [address] [place] [address] Marilu Craig NP [address] [facility] [address] [place] [address] Social History Tobacco Use Types Packs/Day Years [...] Never 11/12/2023 How often do you attend gnosticism or alevism serv ices? Never 11/12/2023 Do you belong to any clubs o r organizations such as gnosticism groups, unions, fraternal or athletic groups, or [...] Date Recorded Patient Health Questionnaire-2 Score 6 06/17/2024 [facility] Health - Occupational [...] any time in the past 12 m [facility], were you homeless or living in [...] 2:00 PM EDT Office Visit [facility] [address] [place] [address] Nilsa Isidro NP [address] [place] [address] documented as of this encounter Visit Diagnoses Not on filedocumented in this encounter Additional Health Concerns Assessment Noted Time PHQ-9 Depression Total Score: 15 025 2:48 PM EST documented as of this encounter Care Teams Veterinary Attendant Relationship Specialty Start Date End Date Rylan Andrea MD [address] [place] [address] PCP - General Family Medicine 10/16/22 Marilu Craig NP [address] [place] [address] Nurse Practitioner Family Medicine 04/03/23 07/17/24 Nilsa Isidro NP [address] [place] [address] Nurse Practitioner Pulmonary Disease 04/03/23 Sanjuana Van LSW [address] [place] [address] Software Licensing Specialist Family Medicine 06/18/23 Cindy Yeager OD [address] [place] [address] Referring Physician Optometry 10/31/23 Ophelia James DO [address] [place] [address] Pulmonary Disease 01/10/24 documented as of this encounter
--- OUTSIDE RECORDS SUMMARY | 2024-11-26 14:41 | XMS_ITS | Encounter Summary ---
Author Organization [facility] Address [address] [facility] [place] [address] Care Team Providers Care Career Placement Services Counselor Name Role Phone Rylan Andrea MD Primary Care Provider Marilu Craig NP Unavailable Nilsa Isidro PEDIATRIC ANESTHESIOLOGIST Unavailable [phone] Morenita Gomes RN Unavailable [phone] Sanjuana Van JUNIOR BRAND MANAGER Unavailable Cindy Yeager OD Unavailable Ophelia James DO Unavailable [phone] Rylan Andera MD Unavailable [phone] Encounter Details Date Type Department Care Team (Late st Contact Info) Description 11/08/2023 Orders Only [facility] [address] [place] [phone] Marilu Craig NP [address] [facility] [address] [place] [address] Social History Tobacco Use Types Packs/Day Years Used Date Smoking Tobacco: Former Cigarettes Cigars Passive Smoke Exposure: Never Smokeless Tobacco: Never Alcohol Use Standard Drinks/Week Comments Not Currently 50 (1 standard drink = 0.6 oz pu re alcohol) He drinks 3-4 beers daily B1300 Health Literacy Answer Date Recor ded [...] Never 11/12/2023 How often do you attend jew or scientologist serv ices? Never 11/12/2023 Do you belong to any clubs o r organizations such as jew groups, unions, fraternal or athletic groups, or [...] Answer Date Recorded Patient Health Questionnaire-2 Score 4 11/12/2023 [facility] ional Health - Occupational [...] place to sleep or slept in a correction (including now)? Yes 08/17/2023 Housing Stability Vital Sign Answer Daniel e Recorded In the last 12 months, was t here a time when you were not able to pay the mortgage or rent on time? No 11/12/2023 Number of Times Moved in the Last Year Not on fi le 11/12/2023 At any time in the past 12 m [facility], were you homeless or living in a correction (including now)? No 11/12/2023 Sex and Gender [...] Office Visit [facility] [address] [place] [address] Nilsa Isidro, ELLE [address] [place] [address] documented as of this encounter Procedures Procedure Name Priority Date/Time Associated Diagnosis Comments CT ABDOMEN/PELVIS WITH CONTRAST Routine 11/06/2023 9:10 AM EDT documented in this encounter Results * CT ABDOMEN/PELVIS WITH CONTRAST (11/06/2023 9:10 AM EDT) Anatomical Region Laterality Modality Radiographic Anna ging Marilu Craig NP IMG XR PROCEDURES Final Result documented in this encounter Visit Diagnoses Not on filedocumented in this encounter Additional Health Concerns Assessment Noted Time PHQ-9 Depression Total Score: 21 024 3:07 PM EDT documented as of this encounter Care Teams Career Placement Services Counselor Relationship Specialty Start Date End Date Rylan Andrea MD [address] [place] [address] PCP - General Family Medicine 10/16/22 Rylan Andrea MD [address] [place] [address] PCP - [facility] 05/14/23 05/13/24 Marilu Craig NP [address] [place] [address] Nurse Practitioner Family Medicine 04/03/23 07/17/24 Nilsa Isidro NP [address] [place] [address] Nurse Practitioner Pulmonary Disease 04/03/23 Morenita Gomes, RN [address] [place] [address] Registered Nurse Family Medicine 06/18/23 12/14/23 Sanjuana Van LSW [address] [place] [address] Utilization Review Specialist Family Medicine 06/18/23 Cindy Yeager OD [address] [place] [address] Referring Physician Optometry 10/31/23 Ophelia James DO [address] [place] [address] Pulmonary Disease 01/10/24 documented as of this encounter
--- OUTSIDE RECORDS SUMMARY | 2024-11-26 14:41 | XMS_ITS | Encounter Summary ---
Author Organization [facility] Address [address] [facility] [place] [address] Care Team Providers Care Information Systems Planner Name Role Phone Rylan Andrea MD Primary Care Provider [phone] Marilu Craig JD EDWARDS Unavailable Nilsa Isidro JD EDWARDS Unavailable Morenita Gomes RN Unavailable [phone] Sanjuana Van NUTRITION EDUCATOR Unavailable Cindy Yeager OD Unavailable Ophelia James DO Unavailable [phone] Rylan Andrea MD Unavailable [phone] Encounter Details Date Type Department Care Team (Late st Contact Info) Description 10/18/2023 Abstract [facility] [address] [place] [address] Rylan Andrea MD [address] [place] [address] Social History Tobacco Use Types Packs/Day Years Used Date Smoking Tobacco: Some Days Cigars Passive Smoke Exposure: Never Smokeless Tobacco: [...] often do you attend chur ch or jewish services? Never 08/17/2023 Do you belong to any clubs o r organizations such as scientologist groups, unions, fraternal or athletic groups, or [...] Recorded Patient Health Questionnaire-2 Score 6 10/04/2023 [facility] Occup[facility] ional Health - Occupational Stress [...] in a prison (including now)? Yes 08/17/2023 Sex and Gender [...] Office Visit [facility] [address] [place] [address] Nilsa Isidro, JD EDWARDS [address] [place] [address] documented as of this encounter Visit Diagnoses Not on filedocumented in this encounter Additional Health Concerns Assessment Noted Time PHQ-9 Depression Total Score: 21 024 3:07 PM EDT documented as of this encounter Care Teams Information Systems Planner Relationship Specialty Start Date End Date Rylan Andrea MD [address] [place] [address] PCP - General Family Medicine 10/16/22 Rylan Andrea MD [address] [place] [address] PCP - [facility] 05/14/23 05/13/24 Marilu Craig NP [address] [place] [address] Nurse Practitioner Family Medicine 04/03/23 07/17/24 Nilsa Isidro NP [address] [place] [address] Nurse Practitioner Pulmonary Disease 04/03/23 Morenita Gomes, ARTHUR [address] [place] [address] Registered Nurse Family Medicine 06/18/23 12/14/23 Sanjuana Van LSW [address] [place] [address] Mill Labor Supervisor Family Medicine 06/18/23 Cindy Yeager OD [address] [place] [address] Referring Physician Optometry 10/31/23 Ophelia James DO [address] [place] [address] Pulmonary Disease 01/10/24 documented as of this encounter
--- OUTSIDE RECORDS SUMMARY | 2024-11-26 14:41 | XMS_ITS | Encounter Summary ---
Author Organization [facility] Address [address] [facility] [place] [address] Care Team Providers Care Film Reader Name Role Phone Rylan Andrea MD Primary Care Provider [phone] Marilu Craig FENCE GATE ASSEMBLER Unavailable Nilsa Isidro FENCE GATE ASSEMBLER Unavailable Morenita Gomes RN Unavailable [phone] Sanjuana Van PLASTIC DIE MAKER APPRENTICE Unavailable Cindy Yeager OD Unavailable Ophelia James DO Unavailable [phone] Rylan Andrea MD Unavailable [phone] Encounter Details Date Type Department Care Team (Late st Contact Info) Description 11/07/2022 Abstract [facility] [address] [place] [address] Rylan Andrea MD [address] [place] [address] Social History Tobacco Use Types [...] PM EDT Sexual Orientation Not on file COVID-19 Exposure Response Date Recorded In the last 10 days, have yo u been in contact with someone who was confirmed or suspected to have Coronavirus/COVID-19? No / Unsure 10/19/2022 1:53 PM EDT documented as of this encounter Plan of Treatment Upcoming Encounters Date Type Department Care Team (Late st Contact Info) Description 01/13/2025 2:00 PM EDT Office Visit [facility] [address] [place] [address] Nilsa Isidro, ELLE [address] [place] [address] documented as of this encounter Visit Diagnoses Not on filedocumented in this encounter Care Teams Film Reader Relationship Specialty Start Date End Date Rylan Andrea MD [address] [place] [address] PCP - General Family Medicine 10/16/22 Rylan Andrea MD [address] [place] [address] PCP - [facility] 05/14/23 05/13/24 Marilu Craig NP [address] [place] [address] Nurse Practitioner Family Medicine 04/03/23 07/17/24 Nilsa Isidro NP [address] [place] [address] Nurse Practitioner Pulmonary Disease 04/03/23 Morenita Gomes, RN [address] [place] [address] Registered Nurse Family Medicine 06/18/23 12/14/23 Sanjuana Van LSW [address] [place] [address] Application Integration Specialist Family Medicine 06/18/23 Cindy Yeager OD [address] [place] [address] Referring Physician Optometry 10/31/23 Ophelia James DO [address] [place] [address] Pulmonary Disease 01/10/24 documented as of this encounter
--- OUTSIDE RECORDS SUMMARY | 2024-11-26 14:41 | XMS_ITS | Clinical Summary ---
Author Organization [facility] Address [address] [place] [address] Care Team Providers Care Tar Kettle Runner Name Role Phone Unavailable Primary Care Provider Unavailabl e Social History Tobacco Use Types Packs/Day Years Used Date Smoking Tobacco: Never Assessed Sex and Gender Information Value Date Recorded Sex Assigned at Not on file Legal Sex Male 5:38 AM EDT Gender Identity Not on file Sexual Orientation Not on file Plan of Treatment Not on file
--- OUTSIDE RECORDS SUMMARY | 2024-11-26 14:41 | XMS_ITS | Encounter Summary ---
Author Organization [facility] Address [address] [facility] [place] [address] Care Team Providers Care Hotbed Operator Name Role Phone Rylan Andrea MD Primary Care Provider [phone] Marilu Craig FORMING AND ASSEMBLING SUPERVISOR Unavailable Nilsa Isidro FORMING AND ASSEMBLING SUPERVISOR Unavailable [phone] Morenita Gomes RN Unavailable Sanjuana Van PLANT ANATOMIST Unavailable Cindy Yeager OD Unavailable Ophelia James DO Unavailable [phone] Rylan Andrea MD Unavailable [phone] Encounter Details Date Type Department Care Team (Late st Contact Info) Description 10/09/2023 Abstract [facility] [address] [place] [address] Rylan Andrea MD [address] [place] [address] Social History Tobacco Use Types [...] often do you attend chur ch or pentecostalism services? Never 08/17/2023 Do you belong to any clubs o r organizations such as zoroastrian groups, unions, fraternal or athletic groups, or [...] Recorded Patient Health Questionnaire-2 Score 6 10/04/2023 [facility] of Occupat ional Health - Occupational Stress [...] place to sleep or slept in a longterm (including now)? Yes 08/17/2023 Sex and Gender [...] Office Visit [facility] [address] [place] [address] Nilsa Isidro, FORMING AND ASSEMBLING SUPERVISOR [address] [place] [phone] documented as of this encounter Visit Diagnoses Not on filedocumented in this encounter Additional Health Concerns Assessment Noted Time PHQ-9 Depression Total Score: 21 024 3:07 PM EDT documented as of this encounter Care Teams Hotbed Operator Relationship Specialty Start Date End Date Rylan Andrea MD [address] [place] [address] PCP - General Family Medicine 10/16/22 Rylan Andrea MD [address] [place] [address] PCP - [facility] 05/14/23 05/13/24 Marilu Craig NP [address] [place] [address] Nurse Practitioner Family Medicine 04/03/23 07/17/24 Nilsa Isidro NP [address] [place] [address] Nurse Practitioner Pulmonary Disease 04/03/23 Morenita Gomes, ARTHUR [address] [place] [address] Registered Nurse Family Medicine 06/18/23 12/14/23 Sanjuana Van LSW [address] [place] [address] Editor Book Family Medicine 06/18/23 Cindy Yeager OD [address] [place] [address] Referring Physician Optometry 10/31/23 Ophelia James DO [address] [place] [address] Pulmonary Disease 01/10/24 documented as of this encounter
--- OUTSIDE RECORDS SUMMARY | 2024-11-26 14:41 | XMS_ITS | Encounter Summary ---
Author Organization [facility] Address [address] [facility] [place] [address] Care Team Providers Care Accounts Payables Clerk Name Role Phone Rylan Andrea MD Primary Care Provider [phone] Marilu Craig DIRECTOR IT PROJECT Unavailable Nilsa Isidro DIRECTOR IT PROJECT Unavailable [phone] Morenita Gomes RN Unavailable [phone] Sanjuana Van MANAGER OF PRODUCTION Unavailable Cindy Yeager OD Unavailable Ophelia James DO Unavailable [phone] Rylan Andrea MD Unavailable [phone] Encounter Details Date Type Department Care Team (Late st Contact Info) Description 12/14/2023 Abstract [facility] [address] [place] [phone] Rylan Andrea MD [address] [place] [address] Social History Tobacco Use Types [...] Never 11/12/2023 How often do you attend mandaen or roman catholic serv ices? Never 11/12/2023 Do you belong to any clubs o r organizations such as mandaen groups, unions, fraternal or athletic groups, or [...] Recorded Patient Health Questionnaire-2 Score 5 12/03/2023 [facility] of Occupat ional Health - Occupational Stress [...] place to sleep or slept in a long-term (including now)? Yes 08/17/2023 Housing Stability Vital Sign Answer Daniel e Recorded In the last 12 months, was t here a time when you were not able to pay the mortgage or rent on time? No 11/12/2023 Number of Times Moved in the Last Year Not on fi le 11/12/2023 At any time in the past 12 m [facility], were you homeless or living in a long-term (including now)? No 11/12/2023 Sex and Gender [...] Office Visit [facility] [address] [place] [address] Nilsa Isidro, DIRECTOR IT PROJECT [address] [place] [address] documented as of this encounter Visit Diagnoses Not on filedocumented in this encounter Additional Health Concerns Assessment Noted Time PHQ-9 Depression Total Score: 14 024 2:10 PM EDT documented as of this encounter Care Teams Accounts Payables Clerk Relationship Specialty Start Date End Date Rylan Andrea MD [address] [place] [address] PCP - General Family Medicine 10/16/22 Rylan Andrea MD [address] [place] [address] PCP - [facility] 05/14/23 05/13/24 Marilu Craig NP [address] [place] [address] Nurse Practitioner Family Medicine 04/03/23 07/17/24 Nilsa Isidro NP [address] [place] [address] Nurse Practitioner Pulmonary Disease 04/03/23 Morenita Gomes, RN [address] [place] [address] Registered Nurse Family Medicine 06/18/23 12/14/23 Sanjuana Van LSW [address] [place] [address] Starch Mangle Tender Family Medicine 06/18/23 Cindy Yeager OD [address] [place] [address] Referring Physician Optometry 10/31/23 Ophelia James DO [address] [place] [address] Pulmonary Disease 01/10/24 documented as of this encounter
--- OUTSIDE RECORDS SUMMARY | 2024-11-26 14:41 | XMS_ITS | Encounter Summary ---
Author Organization [facility] Address [address] [facility] [place] [address] Care Team Providers Care Account Contact Associate Name Role Phone Rylan Andrea MD Primary Care Provider [phone] Marilu Craig COCOA PRESS OPERATOR Unavailable Nilsa Isidro COCOA PRESS OPERATOR Unavailable [phone] Sanjuana Van ACCOUNTS PAYABLE COORDINATOR Unavailable Cindy Yeager OD Unavailable Ophelia James DO Unavailable [phone] Rylan Andrea MD Unavailable [phone] Encounter Details Date Type Department Care Team (Late st Contact Info) Description 01/07/2024 Abstract [facility] [address] [place] [phone] Rylan Andrea MD [address] [place] [address] Social History Tobacco Use Types [...] Never 11/12/2023 How often do you attend mormon or church serv ices? Never 11/12/2023 Do you belong to any clubs o r organizations such as mormon groups, unions, fraternal or athletic groups, or [...] Recorded Patient Health Questionnaire-2 Score 5 12/03/2023 [facility] of Occupat ional Health - Occupational Stress [...] place to sleep or slept in a assisted (including now)? Yes 08/17/2023 Housing Stability Vital Sign Answer Daniel e Recorded In the last 12 months, was t here a time when you were not able to pay the mortgage or rent on time? No 11/12/2023 Number of Times Moved in the Last Year Not on fi le 11/12/2023 At any time in the past 12 m [facility], were you homeless or living in a assisted (including now)? No 11/12/2023 Sex and Gender [...] Visit [facility] [address] [place] [id number] Nilsa Isidro, ELLE [address] [place] [address] documented as of this encounter Visit Diagnoses Not on filedocumented in this encounter Additional Health Concerns Assessment Noted Time PHQ-9 Depression Total Score: 14 024 2:10 PM EDT documented as of this encounter Care Teams Account Contact Associate Relationship Specialty Start Date End Date Rylan Andrea MD [address] [place] [id number] PCP - General Family Medicine 10/16/22 Rylan Andrea MD [address] [place] [id number] PCP - [facility] 05/14/23 05/13/24 Marilu Craig NP [address] [place] [address] Nurse Practitioner Family Medicine 04/03/23 07/17/24 Nilsa Isidro NP [address] [place] [address] Nurse Practitioner Pulmonary Disease 04/03/23 Sanjuana Van LSW [address] [place] [address] Tender Labor Family Medicine 06/18/23 Cindy Yeager OD [address] [place] [address] Referring Physician Optometry 10/31/23 Ophelia James DO [address] [place] [address] Pulmonary Disease 01/10/24 documented as of this encounter
--- OUTSIDE RECORDS SUMMARY | 2024-11-26 14:41 | XMS_ITS | Encounter Summary ---
Author Organization [facility] Address [address] [facility] [place] [address] Care Team Providers Care Selenium Plant Operator Name Role Phone Rylan Andrea MD Primary Care Provider [phone] Marilu Craig NP Unavailable Nilsa Isidro COAT OPERATOR Unavailable Morenita Gomes RN Unavailable Sanjuana Van HEARING CONSULTANT Unavailable Cindy Yeager OD Unavailable Ophelia James DO Unavailable [phone] Rylan Andrea MD Unavailable [phone] Encounter Details Date Type Department Care Team (Late st Contact Info) Description 11/26/2023 Abstract [facility] [address] [place] [address] Marilu Craig NP [address] [facility] [address] [place] [address] Social History Tobacco Use Types Packs/Day Years [...] How often do you attend jain or orthodox serv ices? Never 11/12/2023 Do you belong [...] Recorded Patient Health Questionnaire-2 Score 4 11/12/2023 [facility] of Occupat ional Health - Occupational [...] time in the past 12 m [facility], were you homeless or living in [...] Office Visit [facility] [address] [place] [id number] Nilsa Isidro, COAT OPERATOR [address] [place] [address] documented as of this encounter Visit Diagnoses Not on filedocumented in this encounter Additional Health Concerns Assessment Noted Time PHQ-9 Depression Total Score: 11 024 3:05 PM EDT documented as of this encounter Care Teams Selenium Plant Operator Relationship Specialty Start Date End Date Rylan Andrea MD [address] [place] [address] PCP - General Family Medicine 10/16/22 Rylan Andrea MD [address] [place] [address] PCP - [facility] 05/14/23 05/13/24 Marilu Craig NP [address] [place] [address] Nurse Practitioner Family Medicine 04/03/23 07/17/24 Nilsa Isidro NP [address] [place] [address] Nurse Practitioner Pulmonary Disease 04/03/23 Morenita Gomes, RN [address] [place] [address] Registered Nurse Family Medicine 06/18/23 12/14/23 Sanjuana Van LSW [address] [place] [address] Accounting Coordinator Family Medicine 06/18/23 Cindy Yeager OD [address] [place] [address] Referring Physician Optometry 10/31/23 Ophelia James DO [address] [place] [address] Pulmonary Disease 01/10/24 documented as of this encounter
--- OUTSIDE RECORDS SUMMARY | 2024-11-26 14:41 | XMS_ITS | Encounter Summary ---
Author Organization [facility] Address [address] [facility] [place] [address] Care Team Providers Care Destination Specialist Name Role Phone yRlan Andrea MD Primary Care Provider Marilu Craig KITCHEN ASSISTANT Unavailable Nilsa Isidro KITCHEN ASSISTANT Unavailable [phone] Sanjuana Van DIET CONSULTANT Unavailable Cidny Yeager OD Unavailable Ophelia James DO Unavailable [phone] Rylan Andrea MD Unavailable [phone] Encounter Details Date Type Department Care Team (Late st Contact Info) Description 01/08/2024 Orders Only [facility] [address] [place] [address] Unallocated, Noms Provider, [address] [place], [place] [id number] Social History Tobacco Use Types Packs/Day Years [...] Never 11/12/2023 How often do you attend orthodoxy or rastafari serv ices? Never 11/12/2023 Do you belong to any clubs o r organizations such as orthodoxy groups, unions, fraternal or athletic groups, or [...] Recorded Patient Health Questionnaire-2 Score 5 12/03/2023 [facility] of Occupat ional Health - Occupational Stress [...] any time in the past 12 m [facility], were you homeless or living in [...] Office Visit [facility] [address] [place] [address] Nilsa Isidro NP [address] [place] [address] documented as of this encounter Procedures Procedure Name Priority Date/Time Associated Diagnosis Comments XR ABDOMEN 1 VIEW Routine 01/07/2024 8:08 AM EDT documented in this encounter Results * XR abdomen 1 view (01/07/2024 8:08 AM EDT) Anatomical Region Laterality Modality Abdomen Radiographic Anna ging us [facility] Provider Unallocated MD COELLO XR PROCEDURES F inal Result documented in this encounter Visit Diagnoses Not on filedocumented in this encounter Additional Health Concerns Assessment Noted Time PHQ-9 Depression Total Score: 14 024 2:10 PM EDT documented as of this encounter Care Teams Destination Specialist Relationship Specialty Start Date End Date Rylan Andrea MD [address] [place] [address] PCP - General Family Medicine 10/16/22 Rylan Andrea MD [address] [place] [address] PCP - [facility] 05/14/23 05/13/24 Marilu Craig NP [address] [place] [address] Nurse Practitioner Family Medicine 04/03/23 07/17/24 Nilsa Isidro NP [address] [place] [address] Nurse Practitioner Pulmonary Disease 04/03/23 Sanjuana Van LSW [address] [place] [address] [facility] T[facility] Family Medicine 06/18/23 Cindy Yeager OD [address] [place] [address] Referring Physician Optometry 10/31/23 Ophelia James DO [address] [place] [address] Pulmonary Disease 01/10/24 documented as of this encounter
--- OUTSIDE RECORDS SUMMARY | 2024-11-26 14:41 | XMS_ITS | Encounter Summary ---
Author Organization [facility] Address [address] [facility] [place] [address] Care Team Providers Care Payment Specialist Name Role Phone Rylan Andrea MD Primary Care Provider Marilu Craig ELECTRIC DRILL OPERATOR Unavailable Nilsa Isidro ELECTRIC DRILL OPERATOR Unavailable Sanjuana Van HOTEL ASSOCIATE Unavailable Cindy Yeager OD Unavailable Ophelia James DO Unavailable [phone] Rylan Andrea MD Unavailable [phone] Encounter Details Date Type Department Care Team (Late st Contact Info) Description 01/07/2024 Abstract [facility] [address] [place] [phone] Rylan Andrea MD [address] [place] [address] Social History Tobacco Use Types [...] Never 11/12/2023 How often do you attend rastafari or zoroastrian serv ices? Never 11/12/2023 Do you belong to any clubs o r organizations such as rastafari groups, unions, fraternal or athletic groups, or [...] Recorded Patient Health Questionnaire-2 Score 5 12/03/2023 [facility] of Occupat ional Health - Occupational Stress [...] any time in the past 12 m [facility], were you homeless or living in a [...] Visit [facility] [address] [place] [id number] Nilsa Isidro, ELLE [address] [place] [address] documented as of this encounter Visit Diagnoses Not on filedocumented in this encounter Additional Health Concerns Assessment Noted Time PHQ-9 Depression Total Score: 14 024 2:10 PM EDT documented as of this encounter Care Teams Payment Specialist Relationship Specialty Start Date End Date Rylan Andrea MD [address] [place] [id number] PCP - General Family Medicine 10/16/22 Rylan Andrea MD [address] [place] [id number] PCP - [facility] 05/14/23 05/13/24 Marilu Craig NP [address] [place] [address] Nurse Practitioner Family Medicine 04/03/23 07/17/24 Nilsa Isidro NP [address] [place] [address] Nurse Practitioner Pulmonary Disease 04/03/23 Sanjuana Van LSW [address] [place] [address] Branch Manager Trainee Family Medicine 06/18/23 Cindy Yeager OD [address] [place] [address] Referring Physician Optometry 10/31/23 Ophelia James DO [address] [place] [address] Pulmonary Disease 01/10/24 documented as of this encounter
--- OUTSIDE RECORDS SUMMARY | 2024-11-26 14:41 | XMS_ITS | Encounter Summary ---
Author Organization [facility] Address [address] [facility] [place] [address] Care Team Providers Care Study Manager Name Role Phone Rylan Andrea MD Primary Care Provider Marilu Craig NP Unavailable Nilsa Isidro BOOKS BINDER Unavailable Morenita Gomes RN Unavailable [phone] Sanjuana Van EMT INTERMEDIATE Unavailable Cindy Yeager OD Unavailable Ophelia James DO Unavailable [phone] Rylan Andrea MD Unavailable [phone] Encounter Details Date Type Department Care Team (Late st Contact Info) Description 10/10/2023 Orders Only [facility] [address] [place] [phone] Marilu Craig NP [address] [facility] [address] [place] [address] Social History Tobacco Use Types Packs/Day Years [...] often do you attend chur ch or christianity services? Never 08/17/2023 Do you belong to any clubs o r organizations such as mandaeism groups, unions, fraternal or athletic groups, or [...] Recorded Patient Health Questionnaire-2 Score 6 10/04/2023 [facility] [place] of Occupat ional Health - Occupational Stress [...] place to sleep or slept in a [place] [facility] (including now)? Yes 08/17/2023 Sex and Gender [...] Office Visit [facility] [address] [place] [address] Nilsa Isidro, BOOKS BINDER [address] [place] [address] documented as of this encounter Procedures Procedure Name Priority Date/Time Associated Diagnosis Comments XR CHEST LATERAL DECUBITUS Routine 10/09/2023 8:55 AM EDT documented in this encounter Results * XR chest lateral decubitus (10/09/2023 8:55 AM EDT) Anatomical Region Laterality Modality Chest Right Radiographic Anna ging Marilu Craig BOOKS BINDER IMG XR PROCEDURES Final Result documented in this encounter Visit Diagnoses Not on filedocumented in this encounter Additional Health Concerns Assessment Noted Time PHQ-9 Depression Total Score: 024 3:07 PM EDT documented as of this encounter Care Teams Study Manager Relationship Specialty Start Date End Date Rylan Andrea MD [address] [place] [address] PCP - General Family Medicine 10/16/22 Rylan Andrea MD [address] [place] [address] PCP - [facility] 05/14/23 05/13/24 Marilu Craig NP [address] [place] [address] Nurse Practitioner Family Medicine 04/03/23 07/17/24 Nilsa Isidro NP [address] [place] [address] Nurse Practitioner Pulmonary Disease 04/03/23 Morenita Gomes, ARTHUR [address] [place] [address] Registered Nurse Family Medicine 06/18/23 12/14/23 Sanjuana Van LSW [address] [place] [address] Sourcing Coordinator Family Medicine 06/18/23 Cindy Yeager OD [address] [place] [address] Referring Physician Optometry 10/31/23 Ophelia James, DO [address] [place] [address] Pulmonary Disease 01/10/24 documented as of this encounter
--- OUTSIDE RECORDS SUMMARY | 2024-11-26 14:41 | XMS_ITS | Encounter Summary ---
Author Organization [facility] Address [address] [facility] [place] [address] Care Team Providers Care Cable Supervisor Name Role Phone Rylan Andrea MD Primary Care Provider Marilu Craig NP Unavailable Nilsa Isidro LAUNDRY SUPERINTENDENT Unavailable Morenita Gomes RN Unavailable [phone] Sanjuana Van SEARCH ENGINE OPTIMIZER Unavailable Cindy Yeager OD Unavailable Ophelia James DO Unavailable [phone] Rylan Andrea MD Unavailable [phone] Encounter Details Date Type Department Care Team (Late st Contact Info) Description 11/07/2023 Orders Only [facility] [address] [place] [address] Marilu Craig NP [address] [facility] [address] [place] [address] Social History Tobacco Use Types Packs/Day Years [...] often do you attend chur ch or sabianist services? Never 08/17/2023 Do you belong to any clubs o r organizations such as baptism groups, unions, fraternal or athletic groups, or [...] Recorded Patient Health Questionnaire-2 Score 6 10/04/2023 [facility] [place] of Occupat ional Health - Occupational Stress [...] in a long-term (including now)? Yes 08/17/2023 Sex and Gender [...] Office Visit [facility] [address] [place] [address] Nilsa Isidro, LAUNDRY SUPERINTENDENT [address] [place] [address] documented as of this encounter Procedures Procedure Name Priority Date/Time Associated Diagnosis Comments XR ABDOMEN 1 VIEW Routine 11/07/2023 10:[address] ABDOMEN & PELVIS WO Routine 11/06/2023 10:51 AM EDT XR CHEST 1 VIEW Routine 11/06/2023 10:20 AM EDT documented in this encounter Results * XR abdomen 1 view (11/07/2023 10:10 AM EDT) Anatomical Region Laterality Modality Abdomen Radiographic Anna ging Marilu Craig NP IMG XR PROCEDURES Final Result * CT ABDOMEN & PELVIS WO (11/06/2023 10:51 AM EDT) Anatomical Region Laterality Modality Radiographic Anna ging Marilu Craig LAUNDRY SUPERINTENDENT IMG XR PROCEDURES Final Result * XR chest 1 view (11/06/2023 10:20 AM EDT) Anatomical Region Laterality Modality Chest Radiographic Anna ging Marilu Craig LAUNDRY SUPERINTENDENT IMG XR PROCEDURES Final Result documented in this encounter Visit Diagnoses Not on filedocumented in this encounter Additional Health Concerns Assessment Noted Time PHQ-9 Depression Total Score: 21 024 3:07 PM EDT documented as of this encounter Care Teams Cable Supervisor Relationship Specialty Start Date End Date Rylan Andrea MD [address] [place] [address] PCP - General Family Medicine 10/16/22 Rylan Andrea MD [address] [place] [address] PCP - [facility] 05/14/23 05/13/24 Marilu Craig NP [address] [place] [id number] Nurse Practitioner Family Medicine 04/03/23 07/17/24 Nilsa Isidro NP [address] [place] [address] Nurse Practitioner Pulmonary Disease 04/03/23 Morenita Gomes, RN [address] [place] [address] Registered Nurse Family Medicine 06/18/23 12/14/23 Sanjuana Van LSW [address] [place] [address] Drawing Frame Tender Family Medicine 06/18/23 Cindy Yeager OD [address] [place] [address] Referring Physician Optometry 10/31/23 Ophelia James DO [address] [place] [address] Pulmonary Disease 01/10/24 documented as of this encounter
--- OUTSIDE RECORDS SUMMARY | 2024-11-26 14:41 | XMS_ITS | Encounter Summary ---
Author Organization [facility] Address [address] [facility] [place] [address] Care Team Providers Care Cosmetology Teacher Name Role Phone Rylan Andrea MD Primary Care Provider Marilu Craig COILED TUBING SUPERVISOR Unavailable Nilsa Isidro COILED TUBING SUPERVISOR Unavailable [phone] Morenita Gomes RN Unavailable Sanjuana Van SAS ETL DEVELOPER Unavailable Cindy Yeager OD Unavailable Ophelia James DO Unavailable [phone] Rylan Andrea MD Unavailable [phone] Encounter Details Date Type Department Care Team (Late st Contact Info) Description 10/09/2023 Abstract [facility] [address] [place] [address] Rylan Andrea MD [address] [place] [address] Social History Tobacco Use Types [...] Recorded Patient Health Questionnaire-2 Score 6 10/04/2023 [facility] [place] of Occupat ional Health - Occupational Stress [...] place to sleep or slept in a care home (including now)? Yes 08/17/2023 Sex and Gender [...] Office Visit [facility] [address] [place] [address] Nilsa Isidro, COILED TUBING SUPERVISOR [address] [place] [phone] documented as of this encounter Visit Diagnoses Not on filedocumented in this encounter Additional Health Concerns Assessment Noted Time PHQ-9 Depression Total Score: 21 024 3:07 PM EDT documented as of this encounter Care Teams Cosmetology Teacher Relationship Specialty Start Date End Date Rylan Andrea MD [address] [place] [address] PCP - General Family Medicine 10/16/22 Rylan Andrea MD [address] [place] [address] PCP - [facility] 05/14/23 05/13/24 Marilu Craig NP [address] [place] [address] Nurse Practitioner Family Medicine 04/03/23 07/17/24 Nilsa Isidro NP [address] [place] [address] Nurse Practitioner Pulmonary Disease 04/03/23 Morenita Gomes, ARTHUR [address] [place] [address] Registered Nurse Family Medicine 06/18/23 12/14/23 Sanjuana Van LSW [address] [place] [address] Poker Supervisor Family Medicine 06/18/23 Cindy Yeager OD [address] [place] [address] Referring Physician Optometry 10/31/23 Ophelia James DO [address] [place] [address] Pulmonary Disease 01/10/24 documented as of this encounter
--- OUTSIDE RECORDS SUMMARY | 2024-11-26 14:41 | XMS_ITS | Encounter Summary ---
Author Organization [facility] Address [address] [facility] [place] [address] Care Team Providers Care Management Professor Name Role Phone Rylan Andrea MD Primary Care Provider [phone] Marilu Craig FRONT DESK CLERK Unavailable Nilsa Isidro FRONT DESK CLERK Unavailable Sanjuana Van SENIOR SOFTWARE TEST ENGINEER Unavailable Cindy Yeager OD Unavailable Ophelia James DO Unavailable [phone] Rylan Andrea MD Unavailable [phone] Encounter Details Date Type Department Care Team (Late st Contact Info) Description 01/08/2024 Abstract [facility] [address] [place] [phone] Rylan Andrea MD [address] [place], [...] Never 11/12/2023 How often do you attend jainism or quaker serv ices? Never 11/12/2023 Do you belong to any clubs o r organizations such as jainism groups, unions, fraternal or athletic groups, or [...] Recorded Patient Health Questionnaire-2 Score 5 12/03/2023 [facility] of Occupat ional Health - [...] time in the past 12 m [facility], were you homeless or living in [...] Visit [facility] [address] [place] [phone] Nilsa Isidro, EL[place] [address] [place] [address] documented as of this encounter Visit Diagnoses Not on filedocumented in this encounter Additional Health Concerns Assessment Noted Time PHQ-9 Depression Total Score: 14 024 2:10 PM EDT documented as of this encounter Care Teams Management Professor Relationship Specialty Start Date End Date Rylan Andrea MD [address] [place] [id number] PCP - General Family Medicine 10/16/22 Rylan Andrea MD [address] [place] [id number] PCP - [facility] 05/14/23 05/13/24 Marilu Craig NP [address] [place] [address] Nurse Practitioner Family Medicine 04/03/23 07/17/24 Nilsa Isidro NP [address] [place] [address] Nurse Practitioner Pulmonary Disease 04/03/23 Sanjuana Van LSW [address] [place] [address] Concrete Vault Maker Family Medicine 06/18/23 Cindy Yeager OD [address] [place] [address] Referring Physician Optometry 10/31/23 Ophelia James DO [address] [place] [address] Pulmonary Disease 01/10/24 documented as of this encounter
--- OUTSIDE RECORDS SUMMARY | 2024-11-26 14:41 | XMS_ITS | Encounter Summary ---
Author Organization [facility] Address [address] [facility] [place] [address] Care Team Providers Care Fluorescent Lighting Model Maker Name Role Phone Rylan Andrea MD Primary Care Provider [phone] Marilu Craig ASSISTANT PROFESSOR OF THEATER Unavailable Nilsa Isidro ASSISTANT PROFESSOR OF THEATER Unavailable Sanjuana Van RESOURCING CONSULTANT Unavailable Cindy Yeager OD Unavailable Ophelia James DO Unavailable [phone] Rylan Andrea MD Unavailable [phone] Encounter Details Date Type Department Care Team (Late st Contact Info) Description 01/07/2024 Abstract [facility] [address] [place] [phone] Rylan Andrea MD [address] [place] [address] Social History Tobacco Use Types [...] How often do you attend uatsdin or mandaeism serv ices? Never 11/12/2023 Do you belong [...] Recorded Patient Health Questionnaire-2 Score 5 12/03/2023 [facility] of Occupat ional Health - [...] place to sleep or slept in a chcf (including now)? Yes 08/17/2023 Housing Stability Vital Sign Answer Daniel e Recorded In the last 12 months, was t here a time when you were not able to pay the mortgage or rent on time? No 11/12/2023 Number of Times Moved in the Last Year Not on fi le 11/12/2023 At any time in the past 12 m [facility], were you homeless or living in a chcf (including now)? No 11/12/2023 Sex and Gender [...] Visit [facility] [address] [place] [phone] Nilsa Isidro, EL[place] [address] [place] [address] documented as of this encounter Visit Diagnoses Not on filedocumented in this encounter Additional Health Concerns Assessment Noted Time PHQ-9 Depression Total Score: 14 024 2:10 PM EDT documented as of this encounter Care Teams Fluorescent Lighting Model Maker Relationship Specialty Start Date End Date Rylan Andrea MD [address] [place] [id number] PCP - General Family Medicine 10/16/22 Rylan Andrea MD [address] [place] [id number] PCP - [facility] 05/14/23 05/13/24 Marilu Craig NP [address] [place] [address] Nurse Practitioner Family Medicine 04/03/23 07/17/24 Nilsa Isidro NP [address] [place] [address] Nurse Practitioner Pulmonary Disease 04/03/23 Sanjuana Van LSW [address] [place] [address] Blue Line Trimmer Family Medicine 06/18/23 Cindy Yeager OD [address] [place] [address] Referring Physician Optometry 10/31/23 Ophelia James DO [address] [place] [address] Pulmonary Disease 01/10/24 documented as of this encounter
--- OUTSIDE RECORDS SUMMARY | 2024-11-26 14:41 | XMS_ITS | Encounter Summary ---
Author Organization [facility] Address [address] [facility] [place] [address] Care Team Providers Care Pearl Fisherman Name Role Phone Rylan Andrea MD Primary Care Provider Nilsa Isidro STAFF INTERPRETER Unavailable Sanjuana Van MARBLE RUBBER Unavailable Cindy Yeager OD Unavailable Ophelia James DO Unavailable [phone] Encounter Details Date Type Department Care Team (Late st Contact Info) Description 09/17/2024 Abstract [facility] [address] [place] [phone] Nilsa Isidro, STAFF INTERPRETER [address] [place] [address] Social History Tobacco Use Types Packs/Day Years [...] Never 11/12/2023 How often do you attend scientologist or faith serv ices? Never 11/12/2023 Do you belong [...] Recorded Patient Health Questionnaire-2 Score 6 09/15/2024 [facility] of Occupat ional Health - Occupational Stress [...] place to sleep or slept in a penitentiary (including now)? Yes 08/17/2023 Housing Stability Vital Sign Answer Daniel e Recorded In the last 12 months, was t here a time when you were not able to pay the mortgage or rent on time? No 11/12/2023 Number of Times Moved in the Last Year Not on fi le 11/12/2023 At any time in the past [address] [facility], were you homeless or living in a penitentiary (including now)? No 11/12/2023 Sex and Gender [...] Office Visit [facility] [address] [place] [phone] Nilsa Isidro NP [address] [place] [address] documented as of this encounter Goals Goal Patient Goal Type Associated Problems Recent Progress Patient-Stated? Author Help patient manage antidepressant medication Care Plan Patient on antidepressant monitoring plan No Nilsa Isidro NP documented as of this encounter Visit Diagnoses Not on filedocumented in this encounter Additional Health Concerns Active Problems Noted Date Diagnosed Date Patient on antidepressant monitoring plan 2024 Assessment Noted Time PHQ-9 Depression Total Score: 18 025 2:05 PM EDT documented as of this encounter Care Teams Pearl Fisherman Relationship Specialty Start Date End Date Rylan Andrea MD [address] [place] [address] PCP - General Family Medicine 10/16/22 Nilsa Isidro NP [address] [place] [address] Nurse Practitioner Pulmonary Disease 04/03/23 Sanjuana Van LSW [address] [place] [address] Channel Cementer Family Medicine 06/18/23 Cindy Yeager OD [address] [place] [address] Referring Physician Optometry 10/31/23 Ophelia James DO [address] [place] [address] Pulmonary Disease 01/10/24 documented as of this encounter
--- OUTSIDE RECORDS SUMMARY | 2024-11-26 14:41 | XMS_ITS | Encounter Summary ---
Author Organization [facility] Address [address] [facility] [place] [address] Care Team Providers Care Stylist Assistant Name Role Phone Rylan Andrea MD Primary Care Provider Marilu Craig EMPLOYEE WELLNESS/FITNESS COORDINATOR Unavailable Nilsa Isidro EMPLOYEE WELLNESS/FITNESS COORDINATOR Unavailable [phone] Morenita Gomes RN Unavailable Sanjuana Van MANAGER IT TRAINING Unavailable Cindy Yeager OD Unavailable Ophelia James DO Unavailable [phone] Rylan Andrea MD Unavailable [phone] Encounter Details Date Type Department Care Team (Late st Contact Info) Description 11/26/2023 Orders Only [facility] [address] [place] [address] Rylan Andrea MD [address] [place] [address] Social History Tobacco Use Types [...] Never 11/12/2023 How often do you attend voodoo or protestant serv ices? Never 11/12/2023 Do you belong to any clubs o r organizations such as voodoo groups, unions, fraternal or athletic groups, or [...] Recorded Patient Health Questionnaire-2 Score 4 11/12/2023 [facility] of Occupat [...] place to sleep or slept in a mcc (including now)? Yes 08/17/2023 Housing Stability Vital Sign Answer Daniel e Recorded In the last 12 months, was t here a time when you were not able to pay the mortgage or rent on time? No 11/12/2023 Number of Times Moved in the Last Year Not on fi le 11/12/2023 At any time in the past 12 m [facility], were you homeless or living in a mcc (including now)? No 11/12/2023 Sex and Gender [...] Office Visit [facility] [address] [place] [address] Nilsa Isidro, [place] [address] [place] [address] documented as of this encounter Procedures Procedure Name Priority Date/Time Associated Diagnosis Comments CHEST Routine 11/26/2023 5:15 PM EDT documented in this encounter Results * CHEST (11/26/2023 5:15 PM EDT) Anatomical Region Laterality Modality Radiographic Anna ging Rylan Andrea MD IMG XR PROCEDURES Final Result documented in this encounter Visit Diagnoses Not on filedocumented in this encounter Additional Health Concerns Assessment Noted Time PHQ-9 Depression Total Score: 11 024 3:05 PM EDT documented as of this encounter Care Teams Stylist Assistant Relationship Specialty Start Date End Date Rylan Andrea MD [address] [place] [address] PCP - General Family Medicine 10/16/22 Rylan Andrea MD [address] [place] [address] PCP - [facility] 05/14/23 05/13/24 Marilu Craig NP [address] [place] [address] Nurse Practitioner Family Medicine 04/03/23 07/17/24 Nilsa Isidro NP [address] [place] [address] Nurse Practitioner Pulmonary Disease 04/03/23 Morenita Gomes, RN [address] [place] [address] Registered Nurse Family Medicine 06/18/23 12/14/23 Sanjuana Van LSW [address] [place] [address] Cma Or Lpn Family Medicine 06/18/23 Cindy Yeager OD [facility] [place] [address] Referring Physician Optometry 10/31/23 Ophelia James DO [address] [place] [address] Pulmonary Disease 01/10/24 documented as of this encounter
--- OUTSIDE RECORDS SUMMARY | 2024-11-26 14:41 | XMS_ITS | Encounter Summary ---
Author Organization [facility] Address [address] [place] [address] Care Team Providers Care Application Specialist Name Role Phone Danna Andrea MD Primary Care Provider [phone] Marilu Craig METER AND REGULATOR SHOP SUPERVISOR Unavailable Nilsa Isidro METER AND REGULATOR SHOP SUPERVISOR Unavailable [phone] Morenita Gomes RN Unavailable [phone] Sanjuana Van INDUSTRIAL MAINTENANCE TECHNICIAN Unavailable Cindy Yeager OD Unavailable Ophelia James DO Unavailable [phone] Danna Andrea MD Unavailable [phone] Encounter Details Date Type Department Care Team (Late st Contact Info) Description 10/10/2023 Clinisync Result Encounter [facility] External Department Unsolicited Provider, Generic External Data Social History Tobacco Use Types Packs/Day Years [...] 08/17/2023 How often do you attend chur or yarsanism services? Never 08/17/2023 Do you belong to any clubs o r organizations such as judaism groups, unions, fraternal or athletic groups, or [...] Recorded Patient Health Questionnaire-2 Score 6 10/04/2023 [facility] of Occupat ional Health - [...] 01/13/2025 2:00 PM EDT Office Visit [facility] [address] [place] [address] Nilsa Isidro NP [address] [place] [address] documented as of this encounter Procedures Procedure Name Priority Date/Time Associated Diagnosis Comments XR CHEST 3V PA/LAT/DECUB 10/10/2023 7:40 AM EDT documented in this encounter Results * XR CHEST 3V PA/LAT/DECUB (10/10/2023 7:40 AM EDT) Anatomical Region Laterality Modality Radiographic Anna ging 10/10/2023 7:40 AM EDT Narrative 10/10/2023 7:43 AM EDT [address] [address] XRay Report Signed Patient: KIRILL ECHOLS MR#: [id number] : 1965 Acct:[id number] Age/Sex: 58 / M ADM Date: 10/09/23 Loc: RAD Attending Dr: Non-Staff Physician Jamaal Ordering Physician: PhysicianNon-Staff Jamaal Date of Service: 10/09/23 Procedure(s): XR chest w decubitus Accession Number(s): [id number] cc: DANNA ANDREA ; Physician,Non-Staff Jamaal [address] [address] Patient Name: KIRILL ECHOLS MRN: [facility]:[id number] date: 1965 Sex: M Assigned Patient Location: [facility] Current Patient Location: Accession/Order Number: [id number] Exam Date: 10/09/2023 15:25 Report Date: 10/10/2023 07:40 At the request of: NON-STAFF PHYSICIAN Procedure: XR chest w decubitus EXAMINATION: XR chest w decubitus HISTORY: Shortness of breath R06.02 COMPARISON: 06/18/2022 TECHNIQUE: PA and lateral FINDINGS: LUNGS: Right lung volume loss. Minimal patchy opacities right mid to lower lung zone. VASCULATURE: No increased pulmonary vasculature. PLEURA: Blunting of the right lateral costophrenic angle, tiny right pleural effusion CARDIAC: No cardiomegaly or cardiac silhouette abnormality. MEDIASTINUM: No visible mass or adenopathy. BONES: No fracture or visible bone lesion. OTHER: Left Port-A-Cath XR/XR chest w decubitus IMPRESSION: Tiny right pleural effusion Electronically authenticated by: MARCE GOULD Date: 10/10/2023 07:40 Dictated By: Marce Gould M.D. Signed By: 10/10/23 0743 DD/ 9 TD/TT: Studio Musician: Procedure Note Radiology, Radiologist, - 10/11/[address] [address] XRay Report Signed Patient: KIRILL ECHOLS NMR#: [id number] : 1965Acct:[id number] Age/Sex: 58 / MADM Date: 10/09/23 Loc: RAD Attending Dr: Non-Staff Physician Jamaal Ordering Physician: PhysicianNon-Staff Jamaal Date of Service: 10/09/23 Procedure(s): XR chest w decubitus Accession Number(s): [id number] cc: DANNA ANDREA ; PhysicianNonDipakStaff Jamaal The [address] [address] Patient Name: IKRILL ECHOLS MRN: [id number] date: 1965 Sex: M Assigned Patient Location: [facility] Current Patient Location: Accession/Order Number: [id number] Exam Date: 10/09/2023 15:25 Report Date: 10/10/2023 07:40 At the request of: NON-STAFF PHYSICIAN Procedure: XR chest w decubitus EXAMINATION: XR chest w decubitus HISTORY: Shortness of breath R06.02 COMPARISON: 06/18/2022 TECHNIQUE: PA and lateral FINDINGS: LUNGS: Right lung volume loss. Minimal patchy opacities right mid to lower lung zone. VASCULATURE: No increased pulmonary vasculature. PLEURA: Blunting of the right lateral costophrenic angle, tiny rightpleural effusion CARDIAC: No cardiomegaly or cardiac silhouette abnormality. MEDIASTINUM: No visible mass or adenopathy. BONES: No fracture or visible bone lesion. OTHER: Left Port-A-Cath XR/XR chest w decubitus IMPRESSION: Tiny right pleural effusion Electronically authenticated by: MARCE GOULD Date: 10/10/2023 07:40 Dictated By: Marce Gould M.D. Signed By:10/10/2343 DD/ 9 TD/TT: Studio Musician: Generic External Data Provider IM XR PROCEDURES Final Result documented in this encounter Visit Diagnoses Not on filedocumented in this encounter Additional Health Concerns Assessment Noted Time PHQ-9 Depression Total Score: 21 024 3:07 PM EDT documented as of this encounter Care Teams Application Specialist Relationship Specialty Start Date End Date Danna Andrea MD [address] [place] [address] PCP - General Family Medicine 10/16/22 Danna Andrea MD [address] [place] [address] PCP - [facility] 05/14/23 05/13/24 Marilu Craig NP [address] [place] [address] Nurse Practitioner Family Medicine 04/03/23 07/17/24 Nilsa Isidro METER AND REGULATOR SHOP SUPERVISOR [address] [place] [address] Nurse Practitioner Pulmonary Disease 04/03/23 Morenita Gomes, RN [address] [place] [address] Registered Nurse Family Medicine 06/18/23 12/14/23 Sanjuana Van LSW [address] [place] [address] Ink Printer Family Medicine 06/18/23 Cindy Yeager OD [address] [place] [address] Referring Physician Optometry 10/31/23 Ophelia James DO [address] [place] [address] Pulmonary Disease 01/10/24 documented as of this encounter
--- OUTSIDE RECORDS SUMMARY | 2024-11-26 14:41 | XMS_ITS | Encounter Summary ---
Author Organization [facility] Address [address] [facility] [place] [address] Care Team Providers Care Education Faculty Member Name Role Phone Rylan Andrea MD Primary Care Provider Marilu Craig PRE SALES TECHNICAL CONSULTANT Unavailable Nilsa Isidro PRE SALES TECHNICAL CONSULTANT Unavailable Morenita Gomes RN Unavailable [phone] Sanjuana Van DRY HEAT CABINET ATTENDANT Unavailable Cindy Yeager OD Unavailable Ophelia James DO Unavailable [phone] Rylan Andrea MD Unavailable [phone] Encounter Details Date Type Department Care Team (Late st Contact Info) Description 11/26/2023 Abstract [facility] [address] [place] [phone] Rylan Andrea MD [address] [place] [address] Social History Tobacco Use Types [...] Never 11/12/2023 How often do you attend oriental orthodox or zoroastrian serv ices? Never 11/12/2023 Do you belong to any clubs o r organizations such as oriental orthodox groups, unions, fraternal or athletic groups, or [...] Recorded Patient Health Questionnaire-2 Score 4 11/12/2023 [facility] of Occupat ional Health - [...] any time in the past 12 m [facility], were you homeless or living in [...] Office Visit [facility] [address] [place] [address] Nilsa Isidro, PRE SALES TECHNICAL CONSULTANT [address] [place] [address] documented as of this encounter Visit Diagnoses Not on filedocumented in this encounter Additional Health Concerns Assessment Noted Time PHQ-9 Depression Total Score: 11 024 3:05 PM EDT documented as of this encounter Care Teams Education Faculty Member Relationship Specialty Start Date End Date Rylan Andrea MD [address] [place] [address] PCP - General Family Medicine 10/16/22 Rylan Andrea MD [address] [place] [address] PCP - [facility] 05/14/23 05/13/24 Marilu Craig NP [address] [place] [address] Nurse Practitioner Family Medicine 04/03/23 07/17/24 Nilsa Isidro NP [address] [place] [address] Nurse Practitioner Pulmonary Disease 04/03/23 Morenita Gomes, RN [address] [place] [address] Registered Nurse Family Medicine 06/18/23 12/14/23 Sanjuana Van LSW [address] [place] [address] Interactive Multimedia Designer Family Medicine 06/18/23 Cindy Yeager OD [address] [place] [address] Referring Physician Optometry 10/31/23 Ophelia James DO [address] [place] [address] Pulmonary Disease 01/10/24 documented as of this encounter
--- OUTSIDE RECORDS SUMMARY | 2024-11-26 14:41 | XMS_ITS | Encounter Summary ---
Author Organization [facility] Address [address] [facility] [place] [address] Care Team Providers Care Diversity Manager Name Role Phone Rylan Andrea MD Primary Care Provider [phone] Marilu Craig NP Unavailable Nilsa Isidro POLISHER AND BUFFER Unavailable Sanjuana Van POLYSOMNOGRAPHIC TECHNOLOGIST Unavailable Cindy Yeager OD Unavailable Ophelia James DO Unavailable [phone] Rylan Andrea MD Unavailable [phone] Encounter Details Date Type Department Care Team (Late st Contact Info) Description 12/16/2023 Orders Only [facility] [address] [place] [address] Marilu Craig NP [address] [facility] [address] [place], [place] [id number] Social History Tobacco Use Types Packs/Day Years [...] Never 11/12/2023 How often do you attend quaker or samaritan serv ices? Never 11/12/2023 Do you belong to any clubs o r organizations such as quaker groups, unions, fraternal or athletic groups, or [...] Recorded Patient Health Questionnaire-2 Score 5 12/03/2023 [facility] of Occupat ional Health - Occupational Stress [...] place to sleep or slept in a jail (including now)? Yes 08/17/2023 Housing Stability Vital Sign Answer Daniel e Recorded In the last 12 months, was t here a time when you were not able to pay the mortgage or rent on time? No 11/12/2023 Number of Times Moved in the Last Year Not on fi le 11/12/2023 At any time in the past 12 m [facility], were you homeless or living in a jail (including now)? No 11/12/2023 Sex and Gender [...] Visit [facility] [address] [place] [address] Nilsa Isidro, ELLE [address] [place] [address] documented as of this encounter Procedures Procedure Name Priority Date/Time Associated Diagnosis Comments XR CHEST 1 VIEW Routine 12/16/2023 8:18 PM EDT documented in this encounter Results * XR chest 1 view (12/16/2023 8:18 PM EDT) Anatomical Region Laterality Modality Chest Radiographic Anna ging Marilu Craig POLISHER AND BUFFER IMG XR PROCEDURES Final Result documented in this encounter Visit Diagnoses Not on filedocumented in this encounter Additional Health Concerns Assessment Noted Time PHQ-9 Depression Total Score: 14 024 2:10 PM EDT documented as of this encounter Care Teams Diversity Manager Relationship Specialty Start Date End Date yRlan Andrea MD [address] [place] [address] PCP - General Family Medicine 10/16/22 Rylan Andrea MD [address] [place] [address] PCP - [facility] 05/14/23 05/13/24 Marilu Craig NP [address] [place] [address] Nurse Practitioner Family Medicine 04/03/23 07/17/24 Nilsa Isidro NP [address] [place] [address] Nurse Practitioner Pulmonary Disease 04/03/23 Sanjuana Van, POLYSOMNOGRAPHIC TECHNOLOGIST [address] [place], [place] [id number] Brake Adjuster Family Medicine 06/18/23 Shobha, Cindy, MAJO [address] [place] [address] Referring Physician Optometry 10/31/23 Ophelia James DO [address] [place] [address] Pulmonary Disease 01/10/24 documented as of this encounter
--- OUTSIDE RECORDS SUMMARY | 2024-11-26 14:42 | XMS_ITS | Encounter Summary ---
Author Organization [facility] Address [address] [facility] [place] [address] Care Team Providers Care Diesel Machinist Name Role Phone Rylan Andrea MD Primary Care Provider [phone] Marilu Craig MANAGER SERVICES Unavailable Nlisa Isidro MANAGER SERVICES Unavailable [phone] Morenita Gomes RN Unavailable Sanjuana Van FORENSIC STRUCTURAL ENGINEER Unavailable Cindy Yeager OD Unavailable Ophelia James DO Unavailable [phone] Rylan Andrea MD Unavailable [phone] Encounter Details Date Type Department Care Team (Late st Contact Info) Description 09/06/2023 Abstract [facility] [address] [place] [address] Rylan Andrea MD [address] [place] [address] Social History Tobacco Use Types Packs/Day Years Used Date Smoking Tobacco: Some Days Cigars Passive Smoke Exposure: Never Smokeless Tobacco: Never Alcohol Use Standard Drinks/Week Comments Yes 50 (1 standard drink = 0.6 oz pure alcohol) He drinks a 6 pack of beer and half bottle of liquor daily. He is considering AA. Humiliation, Afraid, Rape, and Kick questionnair e [...] often do you attend chur ch or caodaism services? Never 08/17/2023 Do you belong to [...] alcohol? 4 or more times a week 04/11/2023 Q2: How many drinks containi ng alcohol do you have on a typical day when you are drinking? 10 or more Q3: How often do you have si x or more drinks on one occasion? Daily or almost daily 04/11/2023 Overall Financial Resource Strain (CARDIA) Answe r Date Recorded How hard is it for you to pa y for the very basics like food, housing, medical care, and heating? Somewhat hard 08/17/2023 PHQ-2 Answer Date Recorded Patient Health Questionnaire-2 Score 6 04/12/2023 [facility] of Occupat ional Health - [...] in a jail (including now)? Yes 08/17/2023 Sex and Gender [...] Office Visit [facility] [address] [place] [address] Nilsa Isidro, MANAGER SERVICES [address] [place] [address] documented as of this encounter Visit Diagnoses Not on filedocumented in this encounter Additional Health Concerns Assessment Noted Time PHQ-9 Depression Total Score: 023 1:46 PM EST documented as of this encounter Care Teams Diesel Machinist Relationship Specialty Start Date End Date Rylan Andrea MD [address] [place] [address] PCP - General Family Medicine 10/16/22 Rylan Andrea MD [address] [place] [id number] PCP - [facility] 05/14/23 05/13/24 Marilu Craig NP [address] [place] [address] Nurse Practitioner Family Medicine 04/03/23 07/17/24 Nilsa Isidro NP [address] [place] [address] Nurse Practitioner Pulmonary Disease 04/03/23 Morenita Gomes, ARTHUR [address] [place] [address] Registered Nurse Family Medicine 06/18/23 12/14/23 Sanjuana Van LSW [address] [place] [address] Director Of Corporate Real Estate Family Medicine 06/18/23 Cindy Yeager OD [address] [place] [address] Referring Physician Optometry 10/31/23 Ophelia James DO [address] [place] [address] Pulmonary Disease 01/10/24 documented as of this encounter
--- OUTSIDE RECORDS SUMMARY | 2024-11-26 14:42 | XMS_ITS | Encounter Summary ---
Author Organization [facility] Address [address] [place] [address] Phone Care Team Providers Care Circular Sawyer Stone Name Role Phone Rylan Andrea MD Primary Care Provider Encounter Details Date Type Department Care Team (Late st Contact Info) Description 09/02/2021 Orders Only [facility] [address] [place] [address] Conversion, Onbase Social History Tobacco Use Types Packs/Day Years Used Date Smoking Tobacco: Never Assessed Sex and Gender Information Value Date Recorded Sex Assigned at Not on file Legal Sex Male 10:36 AM EST Gender Identity Not on file Sexual Orientation Not on file documented as of this encounter Plan of Treatment Scheduled Orders Name Type Priority Associated Diagnoses Orde r Schedule OUTSIDE LAB SCAN Lab Ordered: 09/02/2021 documented as of this encounter Visit Diagnoses Not on filedocumented in this encounter Care Teams Circular Sawyer Stone Relationship Specialty Start Date End Date Rylan Andrea MD [address] [place] [address] PCP - General 03/03/20 documented as of this encounter
--- OUTSIDE RECORDS SUMMARY | 2024-11-26 14:42 | XMS_ITS | Encounter Summary ---
Author Organization [facility] Address [address] [place] [address] Care Team Providers Care Hall Porter Name Role Phone Rylan Andrea MD Primary Care Provider Marilu Craig CUSTOMER ACCOUNT REPRESENTATIVE Unavailable Nilsa Isidro CUSTOMER ACCOUNT REPRESENTATIVE Unavailable [phone] Morenita Gomes RN Unavailable Sanjuana Van BARKEEPER Unavailable Cindy Yeager OD Unavailable Ophelia James DO Unavailable [phone] Rylan Andrea MD Unavailable [phone] Encounter Details Date Type Department Care Team (Late st Contact Info) Description 09/08/2023 Orders Only [facility] [address] [place] [address] Manpreet Myers DO [facility] [place] [address] Social History Tobacco Use Types Packs/Day Years [...] often do you attend chur ch or yazdanism services? Never 08/17/2023 Do you belong to any clubs o r organizations such as lutheran groups, unions, fraternal or athletic groups, or [...] Date Recorded Patient Health Questionnaire-2 Score 6 09/11/2023 [facility]ational Stress Questionnaire [...] a skilled nursing (including now)? Yes 08/17/2023 Sex and Gender Information Value Date Recorded Sex Assigned at Not on file Legal Sex Male 8:15 PM EDT Gender Identity Male 07/26/2022 8:15 PM EDT Sexual Orientation Not on file documented as of this encounter Functional Status * Over the past 2 weeks, how often have you been bothered by any of the following problems? Question Answer Date of Assessment Author Little interest or pleasure in doing things Nearly every day 09/11/2023 1:49 PM EDT Alta Delgado MA Feeling down, depressed, or hopeless Nearly every day 09/11/2023 1:49 PM EDT Alta Delgado MA Patient Health Questionnaire-2 Score 6 09/11/2023 1:49 PM EDT Alta Delgado M A * Question Answer Date of Assessment Author Trouble falling or staying asleep, or sleeping too much Nearly every day 09/11/2023 1:49 PM EDT Alta Delgado MA Feeling tired or having little energy Nearly every day 09/11/2023 1:49 PM EDT Alta Delgado MA Poor appetite or overeating Nearly every day 1:49 PM EDT Alta Delgado MA Feeling bad about yourself - or that you are a failure or have let yourself or your family down Nearly every day 09/11/2023 1:49 PM EDT Alta Delgado MA Trouble concentrating on things, such as reading the newspaper or watching television Nearly every day 09/11/2023 1:49 PM EDT Alta Delgado MA Moving or speaking so slowly that other people could have noticed? Or the opposite - being so fidgety or restless that you have been moving around a lot more than usual. Not at all 09/11/2023 1:49 PM EDT Alta Delgado MA Thoughts that you would be better off or hurting yourself in some way Nearly every day 09/11/2023 1:49 PM EDT Alta Delgado MA Patient Health Questionnaire-9 Score 24 09/11/2023 1:49 PM EDT Alta Delgado M A * If you checked off any problems on this questionnaire so far, Question Answer Date of Assessment Author How difficult have these problems made it for you to do your work, take care of things at home, or get along with other people? Extremely difficult 09/11/2023 1:49 PM EDT Alta Delgado MA documented as of this encounter Plan of Treatment Upcoming Encounters Date Type Department Care Team (Late st Contact Info) Description 01/13/2025 2:00 PM EDT Office Visit [facility] [address] [place] [address] Nilsa Isidro NP [address] [place] [address] documented as of this encounter Procedures Procedure Name Priority Date/Time Associated Diagnosis Comments XR ABDOMEN 1 VIEW Routine 09/08/2023 9:06 PM EDT documented in this encounter Results * XR abdomen 1 view (09/08/2023 9:06 PM EDT) Anatomical Region Laterality Modality Abdomen Radiographic Anna ging Manpreet Myers DO IMG XR PROCEDURES Final Resul t documented in this encounter Visit Diagnoses Not on filedocumented in this encounter Additional Health Concerns Assessment Noted Time PHQ-9 Depression Total Score: 24 023 1:46 PM EST documented as of this encounter Care Teams Hall Porter Relationship Specialty Start Date End Date Rylan Andrea MD [address] [place] [address] PCP - General Family Medicine 10/16/22 Rylan Andrea MD [address] [place] [address] PCP - [facility] 05/14/23 05/13/24 Marilu Craig NP [address] [place] [address] Nurse Practitioner Family Medicine 04/03/23 07/17/24 Nilsa Isidro CUSTOMER ACCOUNT REPRESENTATIVE [address] [place] [address] Nurse Practitioner Pulmonary Disease 04/03/23 Morenita Gomes, RN [address] [place] [address] Registered Nurse Family Medicine 06/18/23 12/14/23 Sanjuana Van LSW [address] [place] [address] Racing Car Driver Family Medicine 06/18/23 Cindy Yeager OD [facility] [place] [address] Referring Physician Optometry 10/31/23 Ophelia James, [address] [place] [address] Pulmonary Disease 01/10/24 documented as of this encounter
--- OUTSIDE RECORDS SUMMARY | 2024-11-26 14:42 | XMS_ITS | Encounter Summary ---
Author Organization [facility] Address [address] [place] [address] Phone Care Team Providers Care Employee Relations Administrator Name Role Phone Rylan Andrea MD Primary Care Provider Encounter Details Date Type Department Care Team (Late st Contact Info) Description 08/04/2020 Orders Only [facility] [address] [place] [address] Conversion, Onbase Social History Tobacco Use Types [...] r Schedule OUTSIDE LAB SCAN Lab Ordered: 08/04/2020 documented as of this encounter Visit Diagnoses Not on filedocumented in this encounter Care Teams Employee Relations Administrator Relationship Specialty Start Date End Date Rylan Andrea MD [address] [place] [address] PCP - General 03/03/20 documented as of this encounter
--- OUTSIDE RECORDS SUMMARY | 2024-11-26 14:42 | XMS_ITS | Encounter Summary ---
Author Organization [facility] Address [address] [place] [facility] [place] [address] Care Team Providers Care Phlebotomy Technician Name Role Phone Rylan Andrea MD Primary Care Provider Marilu Craig LINOLEUM LAYER APPRENTICE Unavailable Nilsa Isidro LINOLEUM LAYER APPRENTICE Unavailable Morenita Gomes RN Unavailable Sanjuana Van ACETYLENE BURNER Unavailable Cindy Yeager OD Unavailable Ophelia James DO Unavailable [phone] Rylan Andrea MD Unavailable [phone] Encounter Details Date Type Department Care Team (Late st Contact Info) Description 09/06/2023 Abstract [facility] [address] [place] [address] Rylan Andrea MD [address] [place] [address] Social History Tobacco Use Types [...] often do you attend chur ch or adventism services? Never 08/17/2023 Do you belong to [...] Recorded Patient Health Questionnaire-2 Score 6 04/12/2023 [facility] of Occupat ional Health - [...] place to sleep or slept in a long term (including now)? Yes 08/17/2023 Sex and Gender [...] Office Visit [facility] [address] [place] [address] Nilsa Isidro, LINOLEUM LAYER APPRENTICE [address] [place] [address] documented as of this encounter Visit Diagnoses Not on filedocumented in this encounter Additional Health Concerns Assessment Noted Time PHQ-9 Depression Total Score: 023 1:46 PM EST documented as of this encounter Care Teams Phlebotomy Technician Relationship Specialty Start Date End Date Rylan Andrea MD [address] [place] [address] PCP - General Family Medicine 10/16/22 Rylan Andrea MD [address] [place] [id number] PCP - [facility] 05/14/23 05/13/24 Marilu Craig NP [address] [place] [address] Nurse Practitioner Family Medicine 04/03/23 07/17/24 Nilsa Isidro NP [address] [place] [address] Nurse Practitioner Pulmonary Disease 04/03/23 Morenita Gomes, ARTHUR [address] [place] [address] Registered Nurse Family Medicine 06/18/23 12/14/23 Sanjuana Van LSW [address] [place] [address] Jewel Bearing Maker Family Medicine 06/18/23 Cindy Yeager OD [address] [place] [address] Referring Physician Optometry 10/31/23 Ophelia James DO [address] [place] [address] Pulmonary Disease 01/10/24 documented as of this encounter
--- OUTSIDE RECORDS SUMMARY | 2024-11-26 14:42 | XMS_ITS | Encounter Summary ---
Author Organization [facility] Address [address] [place] [address] Phone Care Team Providers Care Last Sorter Name Role Phone Rylan Andrea MD Primary Care Provider [phone] Encounter Details Date Type Department Care Team (Late st Contact Info) Description 08/16/2020 Orders Only [facility] [address] [place] [address] Conversion, Onbase Social History Tobacco Use Types [...] r Schedule OUTSIDE LAB SCAN Lab Ordered: 08/16/2020 documented as of this encounter Visit Diagnoses Not on filedocumented in this encounter Care Teams Last Sorter Relationship Specialty Start Date End Date Rylan Andrea MD [address] [place] [address] PCP - General 03/03/20 documented as of this encounter
--- OUTSIDE RECORDS SUMMARY | 2024-11-26 14:42 | XMS_ITS | Encounter Summary ---
Author Organization [facility] Address [address] [place] [address] Phone Care Team Providers Care Underground Repairer Name Role Phone Rylan Andrea MD Primary Care Provider [phone] Encounter Details Date Type Department Care Team (Late st Contact Info) Description 03/08/2020 Orders Only [facility] [address] [place] [address] Conversion, Onbase Social History Tobacco Use Types [...] r Schedule OUTSIDE LAB SCAN Lab Ordered: 03/08/2020 documented as of this encounter Visit Diagnoses Not on filedocumented in this encounter Care Teams Underground Repairer Relationship Specialty Start Date End Date Rylan Andrea MD [address] [place] [address] PCP - General 03/03/20 documented as of this encounter
--- OUTSIDE RECORDS SUMMARY | 2024-11-26 14:42 | XMS_ITS | Encounter Summary ---
Author Organization [facility] Address [address] [facility] [place] [address] Care Team Providers Care Hazardous Waste Remover Name Role Phone Rylan Andrea MD Primary Care Provider Marilu Craig MANAGER WATER Unavailable Nilsa Isidro MANAGER WATER Unavailable Morenita Gomes RN Unavailable [phone] Sanjuana Van PARAFFIN PLANT SWEATER OPERATOR Unavailable Cindy Yeager OD Unavailable Ophelia James DO Unavailable [phone] Rylan Andrea MD Unavailable [phone] Encounter Details Date Type Department Care Team (Late st Contact Info) Description 09/07/2023 Orders Only [facility] [address] [place] [address] Manpreet Myers DO [facility] [place] [address] Social History Tobacco Use Types [...] often do you attend chur ch or tenriism services? Never 08/17/2023 Do you belong to [...] Recorded Patient Health Questionnaire-2 Score 6 09/11/[address] [facility] - Occupational Stress Questionnaire Answer [...] a nursing home (including now)? Yes 08/17/2023 Sex and [...] Visit [facility] [address] [place] [address] Nilsa Isidro, MANAGER WATER [address] [place] [address] documented as of this encounter Procedures Procedure Name Priority Date/Time Associated Diagnosis Comments XR ABDOMEN 1 VIEW Routine 09/07/2023 7:23 PM EDT documented in this encounter Results * XR abdomen 1 view (09/07/2023 7:23 PM EDT) Anatomical Region Laterality Modality Abdomen Radiographic Anna ging Manpreet Myers DO IMG XR PROCEDURES Final Resul t documented in this encounter Visit Diagnoses Not on filedocumented in this encounter Additional Health Concerns Assessment Noted Time PHQ-9 Depression Total Score: 24 023 1:46 PM EST documented as of this encounter Care Teams Hazardous Waste Remover Relationship Specialty Start Date End Date Rylan Andrea MD [address] [place] [address] PCP - General Family Medicine 10/16/22 Rylan Andrea MD [address] [place] [address] PCP - [facility] 05/14/23 05/13/24 Marilu Craig, ELLE [address] [place] [address] Nurse Practitioner Family Medicine 04/03/23 07/17/24 Nilsa Isidro NP [address] [place] [address] Nurse Practitioner Pulmonary Disease 04/03/23 Morenita Gomes, ARTHUR [address] [place] [address] Registered Nurse Family Medicine 06/18/23 12/14/23 Sanjuana Van LSW [address] [place] [address] Underwater Hunter Family Medicine 06/18/23 Cindy Yeager OD [address] [place] [address] Referring Physician Optometry 10/31/23 Ophelia James, DO [address] [place] [address] Pulmonary Disease 01/10/24 documented as of this encounter
--- OUTSIDE RECORDS SUMMARY | 2024-11-26 14:42 | XMS_ITS | Encounter Summary ---
Author Organization [facility] Address [address] [facility] [place] [address] Care Team Providers Care Purchasing Director Name Role Phone Rylan Andrea MD Primary Care Provider [phone] Marilu Craig NP Unavailable Nilsa Isidro ADVERTISING TRAFFIC MANAGER Unavailable Sanjuana Van ELL TEACHER Unavailable Cindy Yeager OD Unavailable Ophelia James DO Unavailable [phone] Rylan Andrea MD Unavailable [phone] Encounter Details Date Type Department Care Team (Late st Contact Info) Description 02/18/2024 Abstract [facility] [address] [place] [address] Marilu Craig NP [address] [facility] [address] [place] [address] Social History Tobacco Use Types Packs/Day Years [...] Never 11/12/2023 How often do you attend sabianist or scientologist serv ices? Never 11/12/2023 Do you belong to any clubs o r organizations such as sabianist groups, unions, fraternal or athletic groups, or [...] Date Recorded Patient Health Questionnaire-2 Score 6 02/04/2024 [facility] of Occupat ional [facility] - Occupational Stress Questionnaire Answer Date Recorded [...] place to sleep or slept in a senior care (including now)? Yes 08/17/2023 Housing Stability Vital Sign Answer Daniel e Recorded In the last 12 months, was t here a time when you were not able to pay the mortgage or rent on time? No 11/12/2023 Number of Times Moved in the Last Year Not on fi le 11/12/2023 At any time in the past 12 m [facility], were you homeless or living in a senior care (including now)? No 11/12/2023 Sex and Gender [...] Visit [facility] [address] [place] [id number] Nilsa Isidro, ELLE [address] [place] [address] documented as of this encounter Visit Diagnoses Not on filedocumented in this encounter Additional Health Concerns Assessment Noted Time PHQ-9 Depression Total Score: 024 1:39 PM EDT documented as of this encounter Care Teams Purchasing Director Relationship Specialty Start Date End Date Rylan Andrea MD [address] [place] [id number] PCP - General Family Medicine 10/16/22 Rylan Andrea MD [address] [place] [id number] PCP - [facility] 05/14/23 05/13/24 Marilu Craig NP [address] [place] [address] Nurse Practitioner Family Medicine 04/03/23 07/17/24 Nilsa Isidro NP [address] [place] [address] Nurse Practitioner Pulmonary Disease 04/03/23 Sanjuana Van LSW [address] [place] [address] Assignment Clerk Family Medicine 06/18/23 Cindy Yeager OD [facility] [place] [address] Referring Physician Optometry 10/31/23 Ophelia James DO [address] [place] [address] Pulmonary Disease 01/10/24 documented as of this encounter
--- OUTSIDE RECORDS SUMMARY | 2024-11-26 14:42 | XMS_ITS | Encounter Summary ---
Author Organization [facility] Address [address] [facility] [place] [address] Care Team Providers Care Media Consultant Name Role Phone Rylan Andrea MD Primary Care Provider Marilu Craig NP Unavailable Nilsa Isidro DOBBY LOOM FIXER Unavailable Morenita Gomes RN Unavailable [phone] Sanjuana Van VETERANS SERVICE REPRESENTATIVE Unavailable Cindy Yeager OD Unavailable Ophelia James DO Unavailable [phone] Rylan Andrea MD Unavailable [phone] Encounter Details Date Type Department Care Team (Late st Contact Info) Description 10/17/2022 Abstract [facility] [address] [place] [address] Nilsa Isidro, DOBBY LOOM FIXER [address] [place] [address] Social History Tobacco Use Types Packs/Day Years Used Date Smoking Tobacco: Never Assessed AUDIT-C Answer Date Recorded Q1: How often [...] PM EDT documented as of this encounter Functional Status * Audit-C Score Answer Date of Assessment Author 0 10/19/2022 2:00 PM EDT Katarina Wiley * Question Answer Date of Assessment Author Q1: How often do you have a drink containing alcohol? Never 10/19/2022 2:00 PM EDT Cherry Wiley Q2: How many drinks containing alcohol do you have on a typical day when you are drinking? Patient does not drink 10/19/2022 2:00 PM EDT Cherry Wiley Q3: How often do you have six or more drinks on one occasion? Never 10/19/2022 2:00 PM EDT Cherry Wiley * Over the past 2 weeks, how often have you been bothered by any of the following problems? Question Answer Date of Assessment Author Little interest or pleasure in doing things Not at all 10/19/2022 1:39 PM EDT Cherry Wiley Feeling down, depressed, or hopeless Not at all 10/19/2022 1:39 PM EDT Cherry Wiley Patient Health Questionnaire -2 Score 0 10/19/2022 1:39 PM EDT Cherry Wiley documented as of this encounter Plan of Treatment Upcoming Encounters Date Type Department Care Team (Late st Contact Info) Description 01/13/2025 2:00 PM EDT Office Visit [facility] [address] [place] [address] Nilsa Isidro, DOBBY LOOM FIXER [address] [place] [address] documented as of this encounter Visit Diagnoses Not on filedocumented in this encounter Care Teams Media Consultant Relationship Specialty Start Date End Date Rylan Andrea MD [address] [place] [address] PCP - General Family Medicine 10/16/22 Rylan Andrea MD [address] [place] [address] PCP - [facility] 05/14/23 05/13/24 Marilu Craig NP [address] [place] [address] Nurse Practitioner Family Medicine 04/03/23 07/17/24 Nilsa Isidro NP [address] [place] [address] Nurse Practitioner Pulmonary Disease 04/03/23 Morenita Gomes, ARTHUR [address] [place] [address] Registered Nurse Family Medicine 06/18/23 12/14/23 Sanjuana Van LSW [address] [place] [address] Purchasing/Receiving Family Medicine 06/18/23 Cindy Yeager OD [address] [place] [address] Referring Physician Optometry 10/31/23 Ophelia James DO [address] [place] [address] Pulmonary Disease 01/10/24 documented as of this encounter
--- OUTSIDE RECORDS SUMMARY | 2024-11-26 14:42 | XMS_ITS | Encounter Summary ---
Author Organization [facility] Address [address] [facility] [place] [address] Care Team Providers Care Drill Sharpener Name Role Phone Rylan Andrea MD Primary Care Provider Marilu Craig WORKFORCE PLANNER Unavailable Nilsa Isidro WORKFORCE PLANNER Unavailable Morenita Gomes RN Unavailable Sanjuana Van TRIAGE NURSE Unavailable Cindy Yeager OD Unavailable Ophelia James DO Unavailable [phone] Rylan Andrea MD Unavailable [phone] Encounter Details Date Type Department Care Team (Late st Contact Info) Description 09/06/2023 Abstract [facility] [address] [place] [phone] Rylan Andrea MD [address] [place] [address] Social History Tobacco Use Types [...] often do you attend chur ch or advent services? Never 08/17/2023 Do you belong to [...] Recorded Patient Health Questionnaire-2 Score 6 04/12/2023 [facility] - [...] place to sleep or slept in a snf (including now)? Yes 08/17/2023 Sex and Gender [...] Office Visit [facility] [address] [place] [address] Nilsa Isidro, WORKFORCE PLANNER [address] [place] [address] documented as of this encounter Visit Diagnoses Not on filedocumented in this encounter Additional Health Concerns Assessment Noted Time PHQ-9 Depression Total Score: 023 1:46 PM EST documented as of this encounter Care Teams Drill Sharpener Relationship Specialty Start Date End Date Rylan Andrea MD [address] [place] [address] PCP - General Family Medicine 10/16/22 Rylan Andrea MD [address] [place] [id number] PCP - [facility] 05/14/23 05/13/24 Marilu Craig NP [address] [place] [address] Nurse Practitioner Family Medicine 04/03/23 07/17/24 Nilsa Isidro NP [address] [place] [address] Nurse Practitioner Pulmonary Disease 04/03/23 Morenita Gomes, ARTHUR [address] [place] [address] Registered Nurse Family Medicine 06/18/23 12/14/23 Sanjuana Van LSW [address] [place] [address] Mountain Guide Family Medicine 06/18/23 Cindy Yeager OD [address] [place] [address] Referring Physician Optometry 10/31/23 Ophelia James DO [address] [place] [address] Pulmonary Disease 01/10/24 documented as of this encounter
--- OUTSIDE RECORDS SUMMARY | 2024-11-26 14:42 | XMS_ITS | Encounter Summary ---
Author Organization [facility] Address [address] [facility] [place] [address] Care Team Providers Care Holter Scanning Technician Name Role Phone Rylan Andrea MD Primary Care Provider [phone] Marilu Craig NP Unavailable Nilsa Isidro MOTORCYCLE ASSEMBLER Unavailable [phone] Sanjuana Van PATROL POLICE SERGEANT Unavailable Cindy Yeager OD Unavailable Ophelia James DO Unavailable Rylan Andrea MD Unavailable [phone] Encounter Details Date Type Department Care Team (Late st Contact Info) Description 01/24/2024 Abstract [facility] [address] [place] [address] Marilu Craig NP [address] [facility] [address] [place] [address] Social History Tobacco Use Types Packs/Day Years Used Date Smoking Tobacco: Former Cigarettes Cigars Passive Smoke Exposure: Never Smokeless Tobacco: Never Alcohol Use Standard Drinks/Week Comments Yes 48 (1 standard drink = 0.6 oz pure alcohol) Very heavily, 2 cases of beer a week B1300 Health Literacy Answer Date Recor ded [...] How often do you attend anabaptism or hindu serv ices? Never 11/12/2023 Do [...] Date Recorded Patient Health Questionnaire-2 Score 6 01/21/2024 [facility] - Occupational Stress Questionnaire Answer Date Recorded [...] in the past [address] [facility], were you homeless or living [...] Visit [facility] [address] [place] [id number] Nilsa Isidro, ELLE [address] [place] [address] documented as of this encounter Visit Diagnoses Not on filedocumented in this encounter Additional Health Concerns Assessment Noted Time PHQ-9 Depression Total Score: 21 024 1:49 PM EDT documented as of this encounter Care Teams Holter Scanning Technician Relationship Specialty Start Date End Date Rylan Andrea MD [address] [place] [id number] PCP - General Family Medicine 10/16/22 Rylan Andrea MD [address] [place] [id number] PCP - [facility] 05/14/23 05/13/24 Marilu Craig NP [address] [place] [address] Nurse Practitioner Family Medicine 04/03/23 07/17/24 Nilsa Isidro NP [address] [place] [address] Nurse Practitioner Pulmonary Disease 04/03/23 Sanjuana Van LSW [address] [place] [address] Carriage Dogger Family Medicine 06/18/23 Cindy Yeager OD [facility] [place] [address] Referring Physician Optometry 10/31/23 Ophelia James DO [address] [place] [address] Pulmonary Disease 01/10/24 documented as of this encounter
--- OUTSIDE RECORDS SUMMARY | 2024-11-26 14:42 | XMS_ITS | Encounter Summary ---
Author Organization [facility] Address [address] [facility] [place] [address] Care Team Providers Care Manager Financial Services Name Role Phone Rylan Andrea MD Primary Care Provider [phone] Marilu Craig NP Unavailable Nilsa Isidro SOFTWARE DEVELOPER MANAGER Unavailable [phone] Sanjuana Van CUSTOMER SUPPLY COORDINATOR Unavailable Cindy Yeager OD Unavailable Ophleia James DO Unavailable [phone] Rylan Andrea MD Unavailable [phone] Encounter Details Date Type Department Care Team (Late st Contact Info) Description 01/24/2024 Abstract [facility] [address] [place] [address] Marilu Craig NP [address] [facility] [address] [place] [address] Social History Tobacco Use Types Packs/Day Years [...] Never 11/12/2023 How often do you attend amish or druze serv ices? Never 11/12/2023 Do you belong to any clubs o r organizations such as amish groups, unions, fraternal or athletic groups, or [...] Recorded Patient Health Questionnaire-2 Score 6 01/21/2024 [facility] of Occupat ional [facility] - Occupational Stress Questionnaire Answer Date Recorded [...] place to sleep or slept in a intermediate (including now)? Yes 08/17/2023 Housing Stability Vital Sign Answer Daniel e Recorded In the last 12 months, was t here a time when you were not able to pay the mortgage or rent on time? No 11/12/2023 Number of Times Moved in the Last Year Not on fi le 11/12/2023 At any time in the past 12 m [facility], were you homeless or living in a intermediate (including now)? No 11/12/2023 Sex and Gender [...] Visit [facility] [address] [place] [id number] Nilsa Isidro, ELLE [address] [place] [address] documented as of this encounter Visit Diagnoses Not on filedocumented in this encounter Additional Health Concerns Assessment Noted Time PHQ-9 Depression Total Score: 21 024 1:49 PM EDT documented as of this encounter Care Teams Manager Financial Services Relationship Specialty Start Date End Date Rylan Andrea MD [address] [place] [id number] PCP - General Family Medicine 10/16/22 Rylan Andrea MD [address] [place] [id number] PCP - [facility] 05/14/23 05/13/24 Marilu Craig NP [address] [place] [address] Nurse Practitioner Family Medicine 04/03/23 07/17/24 Nilsa Isidro NP [address] [place] [address] Nurse Practitioner Pulmonary Disease 04/03/23 Sanjuana Van LSW [address] [place] [address] Industrial Energy Engineer Family Medicine 06/18/23 Cindy Yeager OD [facility] [place] [address] Referring Physician Optometry 10/31/23 Ophelia James DO [address] [place] [address] Pulmonary Disease 01/10/24 documented as of this encounter
--- OUTSIDE RECORDS SUMMARY | 2024-11-26 14:42 | XMS_ITS | Encounter Summary ---
Author Organization [facility] Address [address] [place] [address] Care Team Providers Care Crew Mess Attendant Name Role Phone Rylan Andrea MD Primary Care Provider Marilu Craig REPLENISHMENT MERCHANDISING ASSOCIATE Unavailable Nilsa Isidro REPLENISHMENT MERCHANDISING ASSOCIATE Unavailable [phone] Morenita Gomes RN Unavailable [phone] Sanjuana Van PRINCIPAL CLERK Unavailable Cindy Yeager OD Unavailable Ophelia James DO Unavailable [phone] Rylan Andrea MD Unavailable [phone] Encounter Details Date Type Department Care Team (Late st Contact Info) Description 06/25/2023 External Result Encounter [facility] External Department Unsolicited Manuel Varma, DO [address] [place] [address] Social History Tobacco Use Types Packs/Day Years Used Date Smoking Tobacco: Some Days Cigars Passive Smoke Exposure: Never Smokeless Tobacco: Never Alcohol Use Standard Drinks/Week Comments Yes 50 (1 standard drink = 0.6 oz pure alcohol) He drinks a 6 pack of beer and half bottle of liquor daily. He is considering AA. AUDIT-C Answer Date Recorded Q1: How often do you have a drink containing alcohol? 4 or more times a week 04/11/2023 Q2: How many drinks containi ng alcohol do you have on a typical day when you are drinking? 10 or more 11/29/202 3 Q3: How often do you have si x or more drinks on one occasion? Daily or almost daily 04/11/2023 PHQ-2 Answer Date Recorded Patient Health Questionnaire-2 Score 6 04/12/2023 Sex and Gender Information Value Date Recorded Sex Assigned at Not on file Legal Sex Male 8:15 PM EDT Gender Identity Male 07/26/2022 8:15 PM EDT Sexual Orientation Not on file documented as of this encounter Plan of Treatment Upcoming Encounters Date Type Department Care Team (Late st Contact Info) Description 01/13/2025 2:00 PM EDT Office Visit [facility] [address] [place] [address] Nilsa Isidro, REPLENISHMENT MERCHANDISING ASSOCIATE [address] [place] [address] documented as of this encounter Procedures Procedure Name Priority Date/Time Associated Diagnosis Comments PET/CT SKULL BASE TO MID THIGH 06/25/2023 10:17 AM EST documented in this encounter Results * PET/CT skull base to mid thigh (06/25/2023 10:17 AM EST) Anatomical Region Laterality Modality Body Computed Tomogra phy 06/25/2023 10:1 7 AM EST Impressions 06/25/2023 10:31 AM EST NO HYPERMETABOLIC REGION OF UPTAKE SEEN TO SUGGEST FDG AVID MALIGNANCY. Impression dictated by: Victorino Ellison Jr., D.O.06/25/2023 10:28 AM Dictation Location: [place] [address] Transcribed By: [facility] 06/25/23 1028 Dictated By: Victorino Ellison Jr, DO 06/25/23 1017 Signed By: <Electronically signed by Victorino Ellison Jr, DO in OV> 06/25/23 1028 Narrative 06/25/2023 10:31 AM EST [facility] Main [address] [address] Nuclear Medicine Report Signed Patient: Kirill Echols MR#: [id number] : 1965 Acct:[id number] Age/Sex: 58 / M ADM Date: 06/25/23 Loc: XT Room: Type: REG RCR Attending Dr: Manuel Varma II DO Copies to: Victorino Ellison Jr, DO Manuel Varma II, DO Ordering Provider: Manuel Varma II, DO Date of Service: 06/25/23 [...] tx strat sb-mt Procedure Note Radiology, Radiologist, - 06/25/2023 [facility] [address] Nuclear Medicine Report Signed Patient: Kirill Echols [facility]#: [id number] : 1965Acct:[id number] Age/Sex: 58 / MADM Date: 06/25/23 Loc: XT Room:Type: REG RCR Attending Dr: Manuel Varma II DO Copies to: Victorino Ellison Jr, DO Manuel Varma II, DO Ordering Provider: Manuel Varma II, DO Date of Service: 06/25/23 [...] is in place. Emphysematous changes withright-sided pleural thickening similar to the prior study. No pericardial or pleural effusions. No freeair or free fluid. Evidence of chronic pancreatitis. PET/PET tumor subq tx strat sb-mt IMPRESSION: NO HYPERMETABOLIC REGION OF UPTAKE SEEN TO SUGGEST FDG AVID MALIGNANCY. Impression dictated by: Victorino Ellison Jr., D.OSesar06/25/2023 10:28 AM Dictation Location: [place] [address] Transcribed By: [facility] 06/25/23 1028 Dictated By: Victorino Ellison Jr, DO 06/25/23 1017 Signed By: <Electronically signed by Victorino Ellison Jr, DO inOV> 06/25/23 1028 Manuel Varma DO IMG CT PROCEDURES Final R esult documented in this encounter Visit Diagnoses Not on filedocumented in this encounter Additional Health Concerns Assessment Noted Time PHQ-9 Depression Total Score: 24 023 1:46 PM EST documented as of this encounter Care Teams Crew Mess Attendant Relationship Specialty Start Date End Date Rylan Andrea MD [address] [place] [address] PCP - General Family Medicine 10/16/22 Rylan Andrea MD [address] [place] [address] PCP - [facility] 05/14/23 05/13/24 Marilu Craig NP [address] [place] [address] Nurse Practitioner Family Medicine 04/03/23 07/17/24 Nilsa Isidro NP [address] [place] [address] Nurse Practitioner Pulmonary Disease 04/03/23 Morenita Gomes, RN [address] [place] [address] Registered Nurse Family Medicine 06/18/23 12/14/23 Sanjuana Van LSW [address] [place] [address] Php Programmer Family Medicine 06/18/23 Cindy Yeager OD [address] [place] [address] Referring Physician Optometry 10/31/23 Ophelia James DO [address] [place] [address] Pulmonary Disease 01/10/24 documented as of this encounter
--- OUTSIDE RECORDS SUMMARY | 2024-11-26 14:42 | XMS_ITS | Encounter Summary ---
Author Organization [facility] Address [address] [facility] [place] [address] Care Team Providers Care Club Former Name Role Phone Rylan Andrea MD Primary Care Provider Marilu Craig NP Unavailable Nilsa Isidro ROCK WOOL INSULATOR Unavailable Sanjuana Van FRUIT VENDOR Unavailable Cindy Yeager OD Unavailable Ophelia James DO Unavailable Rylan Andrea MD Unavailable [phone] Encounter Details Date Type Department Care Team (Late st Contact Info) Description 01/24/2024 Orders Only [facility] [address] [place] [address] Mariul Craig NP [address] [facility] [address] [place] [address] Social History Tobacco Use [...] How often do you attend gnosticism or roman catholic serv ices? Never 11/12/2023 [...] Recorded Patient Health Questionnaire-2 Score 6 01/21/2024 [facility] Occupat ional Health [...] Visit [facility] [address] [place] [address] Nilsa Isidro, ELLE [address] [place] [address] documented as of this encounter Procedures Procedure Name Priority Date/Time Associated Diagnosis Comments XR ABDOMEN 2 VIEW Routine 01/24/2024 9:34 AM EDT documented in this encounter Results * XR ABDOMEN 2 VIEW (01/24/2024 9:34 AM EDT) Anatomical Region Laterality Modality Abdomen Radiographic Anna ging Marilu Craig ROCK WOOL INSULATOR IMG XR PROCEDURES Final Result documented in this encounter Visit Diagnoses Not on filedocumented in this encounter Additional Health Concerns Assessment Noted Time PHQ-9 Depression Total Score: 21 024 1:49 PM EDT documented as of this encounter Care Teams Club Former Relationship Specialty Start Date End Date Rylan Andrea MD [address] [place] [address] PCP - General Family Medicine 10/16/22 Rylan Andrea MD [address] [place] [address] PCP - [facility] 05/14/23 05/13/24 Marilu Craig NP [address] [place] [address] Nurse Practitioner Family Medicine 04/03/23 07/17/24 Nilsa Isidro NP [address] [place] [address] Nurse Practitioner Pulmonary Disease 04/03/23 Sanjuana Van, FRUIT VENDOR [address] [place], [place] [id number] Preparing Box Tender Family Medicine 06/18/23 Shobha, Cindy, MAJO [address] [place] [address] Referring Physician Optometry 10/31/23 Ophelia James DO [address] [place] [address] Pulmonary Disease 01/10/24 documented as of this encounter
--- OUTSIDE RECORDS SUMMARY | 2024-11-26 14:42 | XMS_ITS | Encounter Summary ---
Author Organization [facility] Address [address] [facility] [place] [address] Care Team Providers Care Etl Developer Name Role Phone Rylan Andrea MD Primary Care Provider [phone] Marilu Craig FUR REPAIRER Unavailable Nilsa Isidro FUR REPAIRER Unavailable [phone] Morenita Gomes RN Unavailable Sanjuana Van TAPROOM ATTENDANT Unavailable Cindy Yeager OD Unavailable Ophelia James DO Unavailable [phone] Rylan Andrea MD Unavailable [phone] Encounter Details Date Type Department Care Team (Late st Contact Info) Description 09/06/2023 Orders Only [facility] [address] [place] [address] Unallocated, N[facility] ProviderMD [address] [place], [place] [id number] Social History Tobacco Use Types Packs/Day Years [...] often do you attend chur ch or latter day services? Never 08/17/2023 Do you belong to any clubs o r organizations such as yazidism groups, unions, fraternal or athletic groups, or [...] Recorded Patient Health Questionnaire-2 Score 6 04/12/2023 [facility] of Occupat ional Health - Occupational [...] place to sleep or slept in a retirement (including now)? Yes 08/17/2023 Sex and Gender [...] Office Visit [facility] [address] [place] [address] Nilsa Isidro, FUR REPAIRER [address] [place] [address] documented as of this encounter Procedures Procedure Name Priority Date/Time Associated Diagnosis Comments CT ABDOMEN/PELVIS WITH CONTRAST Routine 09/06/2023 1:11 PM EDT documented in this encounter Results * CT ABDOMEN/PELVIS WITH CONTRAST (09/06/2023 1:11 PM EDT) Anatomical Region Laterality Modality Radiographic Anna ging us [facility] Provider Unallocated MD COELLO XR PROCEDURES F inal Result documented in this encounter Visit Diagnoses Not on filedocumented in this encounter Additional Health Concerns Assessment Noted Time PHQ-9 Depression Total Score: 24 023 1:46 PM EST documented as of this encounter Care Teams Etl Developer Relationship Specialty Start Date End Date Rylan Andrea MD [address] [place] [address] PCP - General Family Medicine 10/16/22 Rylan Andrea MD [address] [place] [address] PCP - [facility] 05/14/23 05/13/24 Marilu Craig NP [address] [place] [address] Nurse Practitioner Family Medicine 04/03/23 07/17/24 Nilsa Isidro FUR REPAIRER [address] [place] [address] Nurse Practitioner Pulmonary Disease 04/03/23 Morenita Gomes, RN [address] [place] [address] Registered Nurse Family Medicine 06/18/23 12/14/23 Sanjuana Van LSW [address] [place] [address] Litigator Family Medicine 06/18/23 [place] [address] [place] [address] Referring Physician Optometry 10/31/23 Ophelia James, [address] [place] [address] Pulmonary Disease 01/10/24 documented as of this encounter
--- OUTSIDE RECORDS SUMMARY | 2024-11-26 14:42 | XMS_ITS | Encounter Summary ---
Author Organization [facility] Address [address] [facility] [place] [address] Care Team Providers Care Community Liaison Name Role Phone Rylan Andrea MD Primary Care Provider Marilu Craig NP Unavailable Nilsa Isidro SPECTRAL SCIENTIST Unavailable Morenita Gomes RN Unavailable [phone] Sanjuana Van BILINGUAL OPERATOR Unavailable Cindy Yeager OD Unavailable Ophelia James DO Unavailable [phone] Rylan Andrea MD Unavailable [phone] Encounter Details Date Type Department Care Team (Late st Contact Info) Description 10/18/2022 External Result Encounter [facility] External Department Unsolicited Nilsa Isidro, SPECTRAL SCIENTIST [address] [place] [address] Social History Tobacco Use Types Packs/Day Years [...] Office Visit [facility] [address] [place] [address] Nilsa Isidro, SPECTRAL SCIENTIST [address] [place] [address] documented as of this encounter Procedures Procedure Name Priority Date/Time Associated Diagnosis Comments XR CHEST 2 VIEWS 10/18/2022 5:07 PM EDT documented in this encounter Results * XR chest 2 views (10/18/2022 5:07 PM EDT) Anatomical Region Laterality Modality Chest Radiographic Anna ging 10/18/2022 5:07 PM EDT Impressions 10/19/2022 6:52 AM EDT CONTINUED RIGHT PLEURAL EFFUSION AND POSSIBLE BASILAR ATELECTASIS. Impression dictated by: Ashley Velasquez M.D.10/18/2022 5:27 PM Dictation Location: RADIO-PC-14 Transcribed By: [facility] 10/18/221726 Dictated By: Ashley Velasquez MD 10/18/22 170 Signed By: <Electronically signed by MD Ashley Velasquez in OV> 10/18/22 172 Narrative 10/19/2022 6:52 AM EDT [facility] Main [address] [address] XRay Report Signed Patient: Kirill Echols MR#: [id number] : 1965 Acct:[id number] Age/Sex: 57 / M ADM Date: 10/18/22 Loc: XD Room: Type: [facility] Attending Dr: Nilsa Isidro SPECTRAL SCIENTIST-C Copies to: Nilsa Isidro CNP Ordering Provider: Nilsa Isidro CNP Date of Service: 10/18/22 XR/XR chest 2V*: RO6.09 PA AND LATERAL CHEST: CLINICAL HISTORY: Shortness of breath and chest pain. COMPARISON: 06/17/2022 There is a left Mltvkk-c-Hijb catheter. A right basilar chest tube is [...] bony thorax is intact. XR/XR chest 2V* Procedure Note Radiology, Radiologist, - 10/19/2022 [facility] [address] [address] XRay Report Signed Patient: Kirill Echols NMR#: [id number] : 1965Acct:[id number] Age/Sex: 57 / MADM Date: 10/18/22 Loc: XD Room:Type: [facility] Attending Dr: Nilsa Isidro SPECTRAL SCIENTIST-C Copies to: Nilsa Isidro CNP Ordering Provider: Nilsa Isidro CNP Date of Service: 10/18/22 XR/XR chest 2V*: RO6.09 PA AND LATERAL CHEST: CLINICAL HISTORY: Shortness of breath and chest pain. COMPARISON: 06/17/2022 There is a left Mzcsnx-s-Gvog catheter. A right basilar chest tube isagain seen. There is still a small amount of right pleural fluid. Underlying atelectasis is notexcluded. There is also right apical capping that may also be pleural fluid. The left lung is clear.No pneumothorax is seen. The cardiac, hilar and mediastinal silhouettes are stable. There is novascular congestion. The visualized bony thorax is intact. XR/XR chest 2V* IMPRESSION: CONTINUED RIGHT PLEURAL EFFUSION AND POSSIBLE BASILAR ATELECTASIS. Impression dictated by: Ashley Velasquez M.D.10/18/2022 5:27 PM Dictation Location: [place] [address] Transcribed By: [facility] 10/18/22 172 Dictated By: Ashley Velasquez MD 10/18/22 1707 Signed By: <Electronically signed by MD Ashley Velasquez in OV> 10/18/22 1727 Nilsa Isidro NP IMG XR PROCEDURES Final Resul t documented in this encounter Visit Diagnoses Not on filedocumented in this encounter Care Teams Community Liaison Relationship Specialty Start Date End Date Rylan Andrea MD [address] [place] [address] PCP - General Family Medicine 10/16/22 Rylan Andrea MD [address] [place] [id number] PCP - [facility] 05/14/23 05/13/24 Marilu Craig SPECTRAL SCIENTIST [address] [place] [address] Nurse Practitioner Family Medicine 04/03/23 07/17/24 Nilsa Isidro, SPECTRAL SCIENTIST [address] [place] [phone] Nurse Practitioner Pulmonary Disease 04/03/23 Morenita Gomes, RN [address] [place] [address] Registered Nurse Family Medicine 06/18/23 12/14/23 Sanjuana Van LSW [address] [place] [id number] Restorer [employer]s Family Medicine 06/18/23 Cindy Yeager OD [address] [place] [address] Referring Physician Optometry 10/31/23 Ophelia James DO [address] [place] [address] Pulmonary Disease 01/10/24 documented as of this encounter
--- OUTSIDE RECORDS SUMMARY | 2024-11-26 14:42 | XMS_ITS ---
Author Organization [facility] Address [address] [place] [address] Care Team Providers Care Clerical Receptionist Name Role Phone Rylan Andrea MD Primary Care Provider [phone] Nilsa Isidro PRINTING PRESS MACHINE OPERATOR Unavailable [phone] Sanjuana Van Unavailable Cindy Yeager OD Unavailable Ophelia James DO Unavailable [phone] Chronic Care Management (CCM) Status:Enrolled (Active) Start date:06/18/2023 Enrollment date:06/18/2023 Enrollment reason:Identified as high-risk Overview Please assess for Care Management needs. 06/18/23, 12:56 PM - APOLINAR Brasher- Patient gives verbal consent to be enrolled in CCM Program and understands there could be a bill for this service. Case Team Name Relationship Phone Sanjuana JIANG(Responsible Staff) Aircraft Rigging And Controls Mechanic [phone] Continued Care and Services Coordination
--- OUTSIDE RECORDS SUMMARY | 2024-11-26 14:42 | XMS_ITS | Encounter Summary ---
Author Organization [facility] Address [address] [facility] [place] [address] Care Team Providers Care Bisque Kiln Placer Name Role Phone Rylan Andrea MD Primary Care Provider Marilu Craig NP Unavailable Nilsa Isidro FIELD CASE MANAGER Unavailable [phone] Morenita Gomes RN Unavailable Sanjuana Van ARCADE TECHNICIAN Unavailable Cindy Yeager OD Unavailable Ophelia James DO Unavailable [phone] Rylan Andrea MD Unavailable [phone] Encounter Details Date Type Department Care Team (Late st Contact Info) Description 07/07/2023 Abstract [facility] [address] [place] [phone] Marilu Craig NP [address] [facility] [address] [place] [address] Social History Tobacco Use Types Packs/Day Years [...] 01/13/2025 2:00 PM EDT Office Visit [facility] [address] [place] [phone] Nilsa Isidro NP [address] [place] [phone] documented as of this encounter Visit Diagnoses Not on filedocumented in this encounter Additional Health Concerns Assessment Noted Time PHQ-9 Depression Total Score: 24 023 1:46 PM EST documented as of this encounter Care Teams Bisque Kiln Placer Relationship Specialty Start Date End Date Rylan Andrea MD [address] [place] [address] PCP - General Family Medicine 10/16/22 Rylan Andrea MD [address] [place] [address] PCP - [facility] 05/14/23 05/13/24 Marilu Craig NP [address] [place] [address] Nurse Practitioner Family Medicine 04/03/23 07/17/24 Nilsa Isidro NP [address] [place] [phone] Nurse Practitioner Pulmonary Disease 04/03/23 Morenita Gomes, RN [address] [place] [address] Registered Nurse Family Medicine 06/18/23 12/14/23 Sanjuana Van LSW [address] [place] [address] Straddle Carrier Operator Family Medicine 06/18/23 Cindy Yeager OD [address] [place] [address] Referring Physician Optometry 10/31/23 Ophelia James, [address] [place] [address] Pulmonary Disease 01/10/24 documented as of this encounter
--- OUTSIDE RECORDS SUMMARY | 2024-11-26 14:42 | XMS_ITS | Encounter Summary ---
Author Organization [facility] Address [address] [facility] [place] [address] Care Team Providers Care Sustain Engineer Name Role Phone Rylan Andrea MD Primary Care Provider Marilu Craig ORACLE SOFTWARE ENGINEER Unavailable Nilsa Isidro ORACLE SOFTWARE ENGINEER Unavailable Sanjuana Van SAUSAGE INSPECTOR Unavailable Cindy Yeager OD Unavailable Ophelia James DO Unavailable [phone] Rylan Andrea MD Unavailable [phone] Encounter Details Date Type Department Care Team (Late st Contact Info) Description 01/31/2024 Abstract [facility] [address] [place] [phone] Rylan Andrea MD [address] [place] [address] Social History Tobacco Use Types [...] Never 11/12/2023 How often do you attend anabaptist or jehovah's witness serv ices? Never 11/12/2023 Do you belong to any clubs o r organizations such as anabaptist groups, unions, fraternal or athletic groups, or [...] Recorded Patient Health Questionnaire-2 Score 6 02/04/2024 [facility] of Occupat [...] place to sleep or slept in a half-way (including now)? Yes 08/17/2023 Housing Stability Vital Sign Answer Daniel e Recorded In the last 12 months, was t here a time when you were not able to pay the mortgage or rent on time? No 11/12/2023 Number of Times Moved in the Last Year Not on fi le 11/12/2023 At any time in the past 12 m [facility], were you homeless or living in a half-way (including now)? No 11/12/2023 Sex and Gender [...] Visit [facility] [address] [place] [phone] Nilsa Isidro, [place] [address] [place] [phone] documented as of this encounter Visit Diagnoses Not on filedocumented in this encounter Additional Health Concerns Assessment Noted Time PHQ-9 Depression Total Score: 21 024 1:49 PM EDT documented as of this encounter Care Teams Sustain Engineer Relationship Specialty Start Date End Date Rylan Andrea MD [address] [place] [phone] PCP - General Family Medicine 10/16/22 Rylan Andrea MD [address] [place] [phone] PCP - [facility] 05/14/23 05/13/24 Marilu Craig NP [address] [place] [address] Nurse Practitioner Family Medicine 04/03/23 07/17/24 Nilsa Isidro NP [address] [place] [address] Nurse Practitioner Pulmonary Disease 04/03/23 Sanjuana Van LSW [address] [place] [address] Bilingual Social Worker Family Medicine 06/18/23 Cindy Yeager OD [facility] [place] [address] Referring Physician Optometry 10/31/23 Ophelia James DO [address] [place] [address] Pulmonary Disease 01/10/24 documented as of this encounter
--- OUTSIDE RECORDS SUMMARY | 2024-11-26 14:42 | XMS_ITS ---
Author Organization [facility] Care Team Providers Care Crop Specialist Name Role Phone Yg Ingram Unavailable Unavailable Ynes Lazar Unavailable Unavailable Ashley Bailey Unavailable Kurt ALMEIDA, Amisha Sierra Unavailable Unavailable Bakies, Maryuri Unavailable Unavailable Eron Rai Unavailable Unavailable Kranthi PARADACJess Unavailable Unavailable Allergies and adverse reactions Code CodeSystem Substance Reaction Severity StartDate Concern Status 23777 RXNORM Sertraline Mild 08/04/2020 active 96479 RXNORM Lisinopril Severe 08/04/2020 active Care Team Name Role Address Phone Organization Dates Ynes Lazar [address], [facility], [place] (Office): : [facility] 08/05/2020 - 08/13/2020 Yg Ingram [address], [address], [place] (Office): : : [facility] 08/05/2020 - 08/13/2020 Ashley Bailey [address] [place], [address], [facility] (Cell): : [facility] 08/05/2020 - 08/13/2020 Amisha Hicks SOCIAL WORK NURSE [address] [place], [address], [place] (Office): : : [facility] 08/05/2020 - 08/13/2020 Maryuri Andreea [place], [place] (Cell): [facility] 08/05/2020 - 08/13/2020 Eron Rai [address] [place] [address], [address], [place] (Office): : [facility] 08/05/2020 - 08/13/2020 Jess Crisostomo SOCIAL WORK NURSE-C [address], [address], [place] (Cell): : : [facility] 08/05/2020 - 08/13/2020 Immunizations Immunization Status Vaccine Details Vaccine Code CodeSystem Daniel e Notes Influenza completed Influenza, high-dose, split virus, quadrivalent, injectable, preservative free 197 CVX created date: 08/12/2020 administere d date: 02/13/2020 Per patient had vaccine in February Problem # Description Date of onset Resolved Date Code CodeSystem Concern Status 1 AGE-RELATED OSTEOPOROSIS WITHOUT CURRENT PATHOLOGICAL FRACTURE 08/05/[address] active 2 ANEMIA, UNSPECIFIED 08/05/[address] active 3 ANXIETY DISORDER, UNSPECIFIED 08/05/[address] active 4 ATHEROSCLEROTIC HEART DISEASE OF [place] CORONARY ARTERY WITHOUT ANGINA PECTORIS 08/05/[address] active 5 BRACHIAL PLEXUS DISORDERS 08/05/[address] active 6 CANDIDAL STOMATITIS 08/05/[address] active 7 CHRONIC OBSTRUCTIVE PULMONARY DISEASE, UNSPECIFIED 08/05/[address] active 8 ESSENTIAL (PRIMARY) HYPERTENSION 08/05/[address] active 9 INSOMNIA, UNSPECIFIED 08/05/[address] active 10 MAJOR DEPRESSIVE DISORDER, RECURRENT SEVERE WITHOUT PSYCHOTIC FEATURES 08/05/[address] active 11 NICOTINE DEPENDENCE, UNSPECIFIED, UNCOMPLICATED 08/05/[address] active 12 OLD MYOCARDIAL INFARCTION 08/05/[address] active 13 PEPTIC ULCER, SITE UNSPECIFIED, UNSPECIFIED ACUTE OR CHRONIC, WITHOUT HEMORRHAGE OR PERFORATION 08/05/[address] active 14 PERSONAL HISTORY OF OTHER MALIGNANT NEOPLASM OF BRONCHUS AND LUNG 08/05/[address] active 15 POLYNEUROPATHY, UNSPECIFIED 08/05/[address] active 16 SUICIDAL IDEATIONS 08/05/[address] active Reason for Referral No Reasons for Referral Entered Social History Social History Observation Description Start Date End Date Code Code System Current Smoking Status Tobacco smoking consumption unknown 265384201 SNOMED CT Sex Assigned At Male 1965 38845-4 [facility] Gender Identity Vital Signs Code Code System Vitals Name Values and Units Timing Information 76962-2 [facility] Pain Level Value=7.0 08/13/2020 89857-2 [facility] O2 % BldC Oximetry Value=91.0 Units= % 08/13/2020 9279-1 [facility] Respiratory Rate Value=17.0 Units=/m in 08/13/2020 8867-4 [facility] Heart rate Value=83.0 Units=/min 06/2020 8310-5 [facility] Body Temperature Value=98.6 Units= F 08/13/2020 8462-4 [facility] Blood Pressure-Diastolic Value=83 Un its=mmHg 08/13/2020 8480-6 [facility] Blood Pressure-Systolic Qiken=868 Un its=mmHg 08/13/2020 83819-7 [facility] Weight Gurnz=770.3 Units=Lbs 8302-2 [facility] Height Value=72.0 Units=Inches 08/05/2020
--- OUTSIDE RECORDS SUMMARY | 2024-11-26 14:42 | XMS_ITS | Encounter Summary ---
Author Organization [facility] Address [address] [facility] [place] [address] Care Team Providers Care Welder Gas Name Role Phone Rylan Andrea MD Primary Care Provider [phone] Marilu Craig NP Unavailable Nilsa Isidro GLOBAL RISK MANAGEMENT DIRECTOR Unavailable Sanjuana Van MUSIC INTERN Unavailable Cindy Yeager OD Unavailable Ophelia James DO Unavailable [phone] Rylan Andrea MD Unavailable [phone] Encounter Details Date Type Department Care Team (Late st Contact Info) Description 01/22/2024 Abstract [facility] [address] [address] Marilu Craig NP [address] [facility] [address] [place] [address] Social History Tobacco Use Types Packs/Day Years [...] Never 11/12/2023 How often do you attend religious or anabaptist serv ices? Never 11/12/2023 Do you belong to any clubs o r organizations such as religious groups, unions, fraternal or athletic groups, or [...] Recorded Patient Health Questionnaire-2 Score 6 01/21/2024 [facility] of Occupat ional [facility] - Occupational Stress Questionnaire Answer Date [...] place to sleep or slept in a fpc (including now)? Yes 08/17/2023 Housing Stability Vital Sign Answer Daniel e Recorded In the last 12 months, was t here a time when you were not able to pay the mortgage or rent on time? No 11/12/2023 Number of Times Moved in the Last Year Not on fi le 11/12/2023 At any time in the past 12 m [facility], were you homeless or living in a fpc (including now)? No 11/12/2023 Sex and Gender [...] Visit [facility] [address] [place] [phone] Nilsa Isidro, [place] [address] [place] [address] documented as of this encounter Visit Diagnoses Not on filedocumented in this encounter Additional Health Concerns Assessment Noted Time PHQ-9 Depression Total Score: 21 024 1:49 PM EDT documented as of this encounter Care Teams Welder Gas Relationship Specialty Start Date End Date Rylan Andrea MD [address] [place] [phone] PCP - General Family Medicine 10/16/22 Rylan Andrea MD [address] [place] [phone] PCP - [facility] 05/14/23 05/13/24 Marilu Craig NP [address] [place] [address] Nurse Practitioner Family Medicine 04/03/23 07/17/24 Nilsa Isidro NP [address] [place] [address] Nurse Practitioner Pulmonary Disease 04/03/23 Sanjuana Van LSW [address] [place] [address] [facility] 06/18/23 Cindy Yeager OD [facility] [place] [address] Referring Physician Optometry 10/31/23 Ophelia James DO [address] [place] [address] Pulmonary Disease 01/10/24 documented as of this encounter
--- OUTSIDE RECORDS SUMMARY | 2024-11-26 14:42 | XMS_ITS | Clinical Summary ---
Author Organization [facility] Address [address] [place] [address] Care Team Providers Care Professional Model Name Role Phone Unavailable Primary Care Provider Unavailabl e Social History Tobacco Use Types Packs/Day Years Used Date Smoking Tobacco: Never Assessed Sex and Gender Information Value Date Recorded Sex Assigned at Not on file Legal Sex Male 11:56 PM EDT Gender Identity Not on file Sexual Orientation Not on file Plan of Treatment Health Maintenance Due Date Last Done Comments CT Colonography 1965 Colonoscopy 1965 Colorectal Cancer Screening 1965 FIT-DNA 1965 FIT 1965 FOBT 1965 Medicare Annual Wellness (AWV) 1965 Sigmoidoscopy 1965 Depression Screening 1977 Hepatitis B Vaccines (1 of 3 - 19+ 3-dose series) 1984 Pneumococcal Vaccine: Pediat rics (0 to 5 Years) and At-Risk Patients (6 to 64 Years) (1 of 2 - PCV) 1984 Adult Tetanus 1987 Zoster Vaccines (1 of 2) 2015 Influenza Vaccine (#1) 2025 HIB Vaccines Aged Out No longer eligi ble based on patient's age to complete this topic HPV Vaccines Aged Out No longer eligi ble based on patient's age to complete this topic IPV Vaccines Aged Out No longer eligi ble based on patient's age to complete this topic Meningococcal B Vaccine Aged Out No l onger eligible based on patient's age to complete this topic Meningococcal Vaccine Aged Out No nicolas ish eligible based on patient's age to complete this topic Rotavirus Vaccines Aged Out No longer eligible based on patient's age to complete this topic Insurance [facility] MEDICARE
--- OUTSIDE RECORDS SUMMARY | 2024-11-26 14:42 | XMS_ITS | Encounter Summary ---
Author Organization [facility] Address [address] [place] [address] Phone Care Team Providers Care Coding Tech Name Role Phone Rylan Andrea MD Primary Care Provider Encounter Details Date Type Department Care Team (Late st Contact Info) Description 04/06/2020 Orders Only [facility] [address] [place] [address] Conversion, Onbase Social History Tobacco Use Types [...] r Schedule OUTSIDE LAB SCAN Lab Ordered: 04/06/2020 documented as of this encounter Visit Diagnoses Not on filedocumented in this encounter Care Teams Coding Tech Relationship Specialty Start Date End Date Rylan Andrea MD [address] [place] [address] PCP - General 03/03/20 documented as of this encounter
--- OUTSIDE RECORDS SUMMARY | 2024-11-26 14:42 | XMS_ITS | Encounter Summary ---
Author Organization [facility] Address [address] [place] [address] Care Team Providers Care Passenger Service Agent Name Role Phone Rylan Andrea MD Primary Care Provider [phone] Marilu Craig ANIMAL ATTENDANT Unavailable Nilsa Isidro ANIMAL ATTENDANT Unavailable [phone] Sanjuana Van PORTABLE FEED MILL OPERATOR Unavailable Cindy Yeager OD Unavailable Ophelia James DO Unavailable [phone] Encounter Details Date Type Department Care Team (Late st Contact Info) Description 07/11/2024 External Result Encounter [facility] External Department Unsolicited Manuel Varma, [address] [place] [address] Social History Tobacco Use Types Packs/Day Years [...] Never 11/12/2023 How often do you attend lutheran or mandaeism serv ices? Never 11/12/2023 Do [...] Recorded Patient Health Questionnaire-2 Score 6 06/17/2024 [facility] of Occupat ional Health - Occupational Stress [...] time in the past 12 m [facility], were you homeless or living in [...] Office Visit [facility] [address] [place] [address] Nilsa Isidro, ANIMAL ATTENDANT [address] [place] [address] documented as of this encounter Procedures Procedure Name Priority Date/Time Associated Diagnosis Comments CT ABDOMEN PELVIS W IV CONTRAST 07/11/2024 3:27 PM EST documented in this encounter Results * CT abdomen pelvis w IV contrast (07/11/2024 3:27 PM EST) Anatomical Region Laterality Modality Body, Pelvis, Abdomen Computed T omography 07/11/2024 3:27 PM EST Impressions 07/11/2024 3:[address] evidence of tumor recurrence or metastatic disease. Impression dictated by: Victorino Ellison Jr., D.O.07/11/2024 3:31 PM Dictation Location: [facility]- Transcribed By: [facility] 07/11/24 1531 Dictated By: Victorino Ellison Jr, DO 07/11/24 1527 Signed By: <Electronically signed by Victorino Ellison Jr, DO in OV> 07/11/24 1531 Narrative 07/11/2024 3:34 PM EST [facility] Main [address] [address] [address] Scan Report Signed Patient: Kirill Echols MR#: [id number] 194 : 1965 Acct:[id number] Age/Sex: 59 / M ADM Date: 07/11/24 Loc: CT Room: Type: [facility] RCR Attending Dr: Manuel Varma II, DO Copies to: Manuel Varma II, DO Ordering Provider: Manuel Varma II, DO Date of Service: 07/11/24 CT/CT chest w con: C34.90 - Malignant neoplasm of unspecified part of unspec... ([id number]) CT/CT abdomen pelvis w con: C34.90 - Malignant neoplasm of unspecified part of unspec... CT CHEST, ABDOMEN AND PELVIS WITH INTRAVENOUS CONTRAST: CLINICAL HISTORY: Follow-up lung cancer COMPARISON: PET/CT 06/25/2023 TECHNIQUE: TECHNIQUE: Spiral images were obtained through the chest, abdomen and pelvis following the administration of IV contrast. This CT exam was performed using one or more following dose reduction techniques: Automated exposure control, adjustment of the mA and/or kV according to patient size, or use of iterative reconstruction technique. FINDINGS: CT chest: Mediastinum:Left-sided port is in place. Thoracic aorta appears normal in caliber. Pulmonary trunk appears nondilated. No pericardial effusion or lymphadenopathy. The esophagus is grossly unremarkable. Lungs:Advanced emphysematous changes. No consolidation pneumothorax or pleural effusion. Biapical scarring. Right basilar atelectasis with dependent atelectatic changes. No measurable nodule or mass. Soft tissues/Bones: No focal soft tissue abnormality. Osseous structures demonstrate degenerative change. CT abdomen and pelvis: Organs:Gallbladder is contracted. Liver portal vein spleen and adrenal glands appear unremarkable. Evidence of chronic pancreatitis. No enhancing renal mass or hydronephrosis. Small cyst right kidney. Aorta appears normal in caliber.[ GI: Stomach is grossly unremarkable. Small bowel appears nondilated. No acute colonic abnormality is seen. Appendix is normal.[ Pelvis:[Urinary bladder and prostate gland appear grossly unremarkable.] Peritoneum/Retroperitoneum:No free air or free fluid or lymphadenopathy.[ Abd wall/Bones:No acute findings. Osseous structures demonstrate degenerative change.[ CT/CT chest w con Procedure Note Radiology, Radiologist, - 07/11/2024 [facility] Main [place] [address] [place] [address] CT Scan Report Signed Patient: Kirill Echols [facility]#: [id number] 194 : 1965Acct:[id number] Age/Sex: 59 / MADM Date: 07/11/24 Loc: CT Room:Type: [facility] RCR Attending Dr: Manuel Varma II DO Copies to: Manuel Varma II, DO Ordering Provider: Manuel Varma II, DO Date of Service: 07/11/24 CT/CT chest w con: C34.90 - Malignant neoplasmof unspecified part of unspec... ([id number]) CT/CT abdomen pelvis w con: C34.90 - Malignant neoplasm ofunspecified part of unspec... CT CHEST, ABDOMEN AND PELVIS WITH INTRAVENOUS CONTRAST: CLINICAL HISTORY: Follow-up lung cancer COMPARISON: PET/CT 06/25/2023 TECHNIQUE: TECHNIQUE: Spiral images were obtained through the chest,abdomen and pelvis following the administration of IV contrast. This CT exam was performed using oneor more following dose reduction techniques: Automated exposure control, adjustment of the mAand/or kV according to patient size, or use of iterative reconstruction technique. FINDINGS: CT chest: Mediastinum:Left-sided port is in place. Thoracic aorta appears normal incaliber. Pulmonary trunk appears nondilated. No pericardial effusion or lymphadenopathy. Theesophagus is grossly unremarkable. Lungs:Advanced emphysematous changes. No consolidation pneumothorax orpleural effusion. Biapical scarring. Right basilar atelectasis with dependent atelectatic changes.No measurable nodule or mass. Soft tissues/Bones: No focal soft tissue abnormality. Osseous structuresdemonstrate degenerative change. CT abdomen and pelvis: Organs:Gallbladder is contracted. Liver portal vein spleen and adrenalglands appear unremarkable. Evidence of chronic pancreatitis. No enhancing renal mass orhydronephrosis. Small cyst right kidney. Aorta appears normal in caliber.[ GI: Stomach is grossly unremarkable. Small bowel appears nondilated. Noacute colonic abnormality is seen. Appendix is normal.[ Pelvis:[Urinary bladder and prostate gland appear grossly unremarkable.] Peritoneum/Retroperitoneum:No free air or free fluid or lymphadenopathy.[ Abd wall/Bones:No acute findings. Osseous structures demonstratedegenerative change.[ CT/CT chest w con IMPRESSION: No CT evidence of tumor recurrence or metastatic disease. Impression dictated by: Victorino Ellison Jr., D.O.07/11/2024 3:31 PM Dictation Location: [place] [address] Transcribed By: [facility] 07/11/24 1531 Dictated By: Victorino Ellison Jr, DO 07/11/24 1527 Signed By: <Electronically signed by Victorino Ellison Jr DO inOV> 07/11/24 1531 Manuel Varma DO IMG CT PROCEDURES Final R esult documented in this encounter Visit Diagnoses Not on filedocumented in this encounter Additional Health Concerns Assessment Noted Time PHQ-9 Depression Total Score: 15 025 2:48 PM EST documented as of this encounter Care Teams Passenger Service Agent Relationship Specialty Start Date End Date Rylan Andrea MD [address] [place] [address] PCP - General Family Medicine 10/16/22 Marilu Craig NP [address] [place] [id number] Nurse Practitioner Family Medicine 04/03/23 07/17/24 Nilsa Isidro NP [address] [place] [address] Nurse Practitioner Pulmonary Disease 04/03/23 Sanjuana Van LSW [address] [place] [address] Chief Green Officer Family Medicine 06/18/23 Cindy Yeager OD [address] [place] [id number] Referring Physician Optometry 10/31/23 Ophelia James DO [address] [place] [address] Pulmonary Disease 01/10/24 documented as of this encounter
--- OUTSIDE RECORDS SUMMARY | 2024-11-26 14:42 | XMS_ITS | Encounter Summary ---
Author Organization [facility] Address [address] [facility] [place] [address] Care Team Providers Care Upholsterer Assembly Line Name Role Phone Rylan Andrea MD Primary Care Provider [phone] Marilu Craig BEAM MACHINE OPERATOR Unavailable Nilsa Isidro BEAM MACHINE OPERATOR Unavailable [phone] Sanjuana Van ALUMNAE SECRETARY Unavailable Cindy Yeager OD Unavailable Ophelia James DO Unavailable [phone] Rylan Andrea MD Unavailable [phone] Encounter Details Date Type Department Care Team (Late st Contact Info) Description 01/29/2024 Abstract [facility] [address] [place] [address] Rylan Andrea MD [address] [place] [address] Social History Tobacco Use Types [...] How often do you attend rastafari or orthodox serv ices? Never 11/12/2023 Do [...] place to sleep or slept in a alf (including now)? Yes 08/17/2023 Housing Stability Vital Sign Answer Daniel e Recorded In the last 12 months, was t here a time when you were not able to pay the mortgage or rent on time? No 11/12/2023 Number of Times Moved in the Last Year Not on fi le 11/12/2023 At any time in the past 12 m [facility], were you homeless or living in a alf (including now)? No 11/12/2023 Sex and Gender [...] SEP FM [address] [place] [phone] Nilsa Isidro, EL[place] [address] [place] [address] documented as of this encounter Visit Diagnoses Not on filedocumented in this encounter Additional Health Concerns Assessment Noted Time PHQ-9 Depression Total Score: 21 024 1:49 PM EDT documented as of this encounter Care Teams Upholsterer Assembly Line Relationship Specialty Start Date End Date Rylan Andrea MD [address] [place] [id number] PCP - General Family Medicine 10/16/22 Rylan Andrea MD [address] [place] [id number] PCP - [facility] 05/14/23 05/13/24 Marilu Craig NP [address] [place] [address] Nurse Practitioner Family Medicine 04/03/23 07/17/24 Nilsa Isidro NP [address] [place] [address] Nurse Practitioner Pulmonary Disease 04/03/23 Sanjuana Van LSW [address] [place] [address] Wool Grader Family Medicine 06/18/23 Cindy Yeager OD [facility] [place] [address] Referring Physician Optometry 10/31/23 Ophelia James DO [address] [place] [address] Pulmonary Disease 01/10/24 documented as of this encounter
--- OUTSIDE RECORDS SUMMARY | 2024-11-26 14:42 | XMS_ITS | Encounter Summary ---
Author Organization [facility] Address [address] [place] [place] [address] Care Team Providers Care Ice Crusher Name Role Phone Rlyan Andrea MD Primary Care Provider [phone] Marilu Craig X RAY OPERATOR Unavailable Nilsa Isidro X RAY OPERATOR Unavailable [phone] Morenita Gomes RN Unavailable Sanjuana Van POLICE AIDE Unavailable Cindy Yeager OD Unavailable Ophelia James DO Unavailable [phone] Rylan Andrea MD Unavailable [phone] Encounter Details Date Type Department Care Team (Late st Contact Info) Description 07/09/2023 Orders Only [facility] [address] [place] [address] Rylan Andrea MD [address] [place] [address] Social History Tobacco Use Types [...] Office Visit [facility] [address] [place] [address] Nilsa Isidro NP [address] [place] [phone] documented as of this encounter Procedures Procedure Name Priority Date/Time Associated Diagnosis Comments XR FOREARM 2 VIEWS LEFT Routine 07/09/2023 4:37 PM EST documented in this encounter Results * XR forearm 2 views left (07/09/2023 4:37 PM EST) Anatomical Region Laterality Modality Upper Extremities, Forearm Left Radio graphic Imaging Rylan Andrea MD IMG XR PROCEDURES Final Result documented in this encounter Visit Diagnoses Not on filedocumented in this encounter Additional Health Concerns Assessment Noted Time PHQ-9 Depression Total Score: 24 023 1:46 PM EST documented as of this encounter Care Teams Ice Crusher Relationship Specialty Start Date End Date Rylan Andrea MD [address] [place] [address] PCP - General Family Medicine 10/16/22 Rylan Andrea MD [address] [place] [address] PCP - [facility] 05/14/23 05/13/24 Marilu Craig NP [address] [place] [address] Nurse Practitioner Family Medicine 04/03/23 07/17/24 Nilsa Isidro NP [address] [place] [address] Nurse Practitioner Pulmonary Disease 04/03/23 Morenita Gomes, ARTHUR [address] [place] [address] Registered Nurse Family Medicine 06/18/23 12/14/23 Sanjuana Van LSW [address] [place] [address] Curriculum And Instruction Specialist Family Medicine 06/18/23 Cindy Yeager OD [address] [place] [address] Referring Physician Optometry 10/31/23 Ophelia James DO [address] [place] [address] Pulmonary Disease 01/10/24 documented as of this encounter
--- OUTSIDE RECORDS SUMMARY | 2024-11-26 14:42 | XMS_ITS | Encounter Summary ---
Author Organization [facility] Address [address] [facility] [place] [address] Care Team Providers Care Pad Tufter Name Role Phone Rylan Andrea MD Primary Care Provider [phone] Marilu Craig NP Unavailable Nilsa Isidro MIGRATORY WORKER Unavailable Sanjuana Van PARCEL POST TRUCK DRIVER Unavailable Cindy Yeager OD Unavailable Ophelia James DO Unavailable [phone] Rylan Andrea MD Unavailable [phone] Encounter Details Date Type Department Care Team (Late st Contact Info) Description 02/18/2024 Abstract [facility] [address] [place] [address] Marilu Craig NP [address] [facility] [address] [place] [address] Social History Tobacco Use Types Packs/Day Years [...] Never 11/12/2023 How often do you attend taoism or christian serv ices? Never 11/12/2023 Do you belong to any clubs o r organizations such as taoism groups, unions, fraternal or athletic groups, or [...] Recorded Patient Health Questionnaire-2 Score 6 02/04/2024 [facility] of Occupat ional [facility] - Occupational Stress Questionnaire Answer Date [...] place to sleep or slept in a residential (including now)? Yes 08/17/2023 Housing Stability Vital [...] were you homeless or living in a residential (including now)? No 11/12/2023 Sex and Gender [...] Visit [facility] [address] [place] [phone] Nilsa Isidro, ELLE [address] [place] [address] documented as of this encounter Visit Diagnoses Not on filedocumented in this encounter Additional Health Concerns Assessment Noted Time PHQ-9 Depression Total Score: 024 1:39 PM EDT documented as of this encounter Care Teams Pad Tufter Relationship Specialty Start Date End Date Rylan Andrea MD [address] [place] [id number] PCP - General Family Medicine 10/16/22 Rylan Andrea MD [address] [place] [id number] PCP - [facility] 05/14/23 05/13/24 Marilu Craig NP [address] [place] [address] Nurse Practitioner Family Medicine 04/03/23 07/17/24 Nilsa Isidro NP [address] [place] [address] Nurse Practitioner Pulmonary Disease 04/03/23 Sanjuana Van LSW [address] [place] [address] Bank Credit Card Collection Clerk Family Medicine 06/18/23 Cindy Yeager OD [facility] [place] [address] Referring Physician Optometry 10/31/23 Ophelia James DO [address] [place] [address] Pulmonary Disease 01/10/24 documented as of this encounter
--- OUTSIDE RECORDS SUMMARY | 2024-11-26 14:42 | XMS_ITS | Encounter Summary ---
Author Organization [facility] Address [address] [facility] [place] [address] Care Team Providers Care Ticket Dispenser Changer Name Role Phone Rylan Andrea MD Primary Care Provider Marilu Craig NP Unavailable Nilsa Isidro PHYSICAL THERAPY PROFESSOR Unavailable [phone] Sanjuana Van VBA PROGRAMMER Unavailable Cindy Yeager OD Unavailable Ophelia James DO Unavailable Rylan Andrea MD Unavailable [phone] Encounter Details Date Type Department Care Team (Late st Contact Info) Description 02/18/2024 Orders Only [facility] FM [address] [place] [address] Marilu Craig NP [address] [facility] [address] [place], [place] [phone] Social History Tobacco Use Types Packs/Day Years [...] How often do you attend jain or pentecostalism serv ices? Never 11/12/2023 Do you belong [...] Recorded Patient Health Questionnaire-2 Score 6 02/04/2024 [facility] of Occupat ional Health - Occupational [...] any time in the past 12 m [facility], were you homeless or living in a [...] Visit [facility] [address] [place] [phone] Nilsa Isidro NP [address] [place] [address] documented as of this encounter Procedures Procedure Name Priority Date/Time Associated Diagnosis Comments COLONOSCOPY DIAGNOSTIC Routine 02/18/2024 2:34 PM EDT ENDOSCOPY PROCEDURES Routine 02/18/2024 2:30 PM EDT documented in this encounter Results * COLONOSCOPY DIAGNOSTIC (02/18/2024 2:34 PM EDT) Anatomical Region Laterality Modality Radiographic Anna ging us Marilu Craig PHYSICAL THERAPY PROFESSOR IMG XR PROCEDURES Final Result * ENDOSCOPY PROCEDURES (02/18/2024 2:30 PM EDT) Anatomical Region Laterality Modality Radiographic Anna ging us Marilu Craig PHYSICAL THERAPY PROFESSOR IMG XR PROCEDURES Final Result documented in this encounter Visit Diagnoses Not on filedocumented in this encounter Additional Health Concerns Assessment Noted Time PHQ-9 Depression Total Score: 024 1:39 PM EDT documented as of this encounter Care Teams Ticket Dispenser Changer Relationship Specialty Start Date End Date Rylan Andrea MD [address] [place] [address] PCP - General Family Medicine 10/16/22 Rylan Andrea MD [address] [place] [address] PCP - [facility] 05/14/23 05/13/24 Marilu Craig NP [address] [place] [address] Nurse Practitioner Family Medicine 04/03/23 07/17/24 Nilsa Isidro NP [address] [place] [address] Nurse Practitioner Pulmonary Disease 04/03/23 Sanjuana Van LSW [address] [place] [address] Healthcare Network Consultant Family Medicine 06/18/23 Cindy Yeager OD [address] [place] [address] Referring Physician Optometry 10/31/23 Ophelia James, [address] [place] [address] Pulmonary Disease 01/10/24 documented as of this encounter
--- OUTSIDE RECORDS SUMMARY | 2024-11-26 14:43 | XMS_ITS | Clinical Summary ---
Author Organization [facility] Address [address] [place] [address] Phone Care Team Providers Care Final Assembly Worker Name Role Phone Rylan Andrea MD Primary Care Provider [phone] Social History Tobacco Use Types Packs/Day Years Used Date Smoking Tobacco: Never Assessed PHQ-2 Answer Date Recorded Patient Health Questionnaire-2 Score 6 11/29/2021 Sex and Gender Information Value Date Recorded Sex Assigned at Not on file Legal Sex Male 10:36 AM EST Gender Identity Not on file Sexual Orientation Not on file Last Filed Vital Signs Vital Sign Reading Time Taken Comments Blood Pressure 128/88 11/29/2021 9:05 AM EDT Pulse 96 11/29/2021 9:05 AM EDT Temperature - - Respiratory Rate - - Oxygen Saturation - - Inhaled Oxygen Concentration - - Weight 67.8 kg (149 lb 8 oz) 11/29/2021 9:05 AM EDT Height 182.9 cm (6') 11/29/2021 9:05 AM EDT Body Mass Index 20.28 11/29/2021 9:05 AM EDT Plan of Treatment Health Maintenance Due Date Last Done Comments CT Colonography 1965 Colonoscopy 1965 Colorectal Cancer Screening 1965 FIT-DNA (Cologuard) 1965 FIT 1965 HIV Screening 1965 Lipid Panel 1965 Sigmoidoscopy 1965 Yearly Adult Physical 1965 MMR Vaccines (1 of 1 - Stand aidan series) 1966 Hepatitis C Screening 1983 Hepatitis B Vaccines (1 of 3 - 19+ 3-dose series) 1984 Pneumococcal Vaccine (1 of 2 - PCV) 1984 DTaP/Tdap/Td Vaccines (1 - Tdap) 1987 Zoster Vaccines (1 of 2) 2015 COVID-19 Vaccine (1 2023-2 5 season) 2024 Influenza Vaccine (#1) 2025 03/14/2020 HIB Vaccines Aged Out No longer eligi ble based on patient's age to complete this topic HPV Vaccines Aged Out No longer eligi ble based on patient's age to complete this topic Hepatitis A Vaccines Aged Out No long er eligible based on patient's age to complete this topic IPV Vaccines Aged Out No longer eligi ble based on patient's age to complete this topic Meningococcal Vaccine Aged Out No nicolas ish eligible based on patient's age to complete this topic Rotavirus Vaccines Aged Out No longer eligible based on patient's age to complete this topic Care Teams Final Assembly Worker Relationship Specialty Start Date End Date Rylan Andrea MD [address] [place] [address] PCP - General 03/03/20
[2024-11-26 14:59] LABS: Free T3 2.10 pg/mL (2.18-3.98); Thyroid Stimulating Hormone 2.572 uIU/mL (0.358-3.740)
== END 2024-11-26 14:07 | disposition home or self-care (01) ==
LOC: LAB 14:11
PROVIDERS: PCP Family Medicine; Visit Provider Nurse Practitioner
DX: E06.3 Autoimmune thyroiditis (principal)
CPT/HCPCS: 36415; 84439; 84443; 84481

== ENCOUNTER 2025-01-24 14:33 | Emergency (ER) | payer OTHER, MEDICARE, MEDICAID, SELFPAY ==
[2025-01-24] VITALS (27 sets, daily range): BP systolic 122–151; BP diastolic 89–103; PULSE 80–105; TEMP 37.1; O2SAT 98; BMI 20.3
--- OUTSIDE RECORDS SUMMARY | 2025-01-24 14:45 | XMS_ITS | CCD ---
Author Organization [facility] Care Team Providers Care Ppa Teacher Name Role Phone CUBA ESQUIVEL Unavailable Unavailable CUBA ESQUIVEL Unavailable Unavailable AHMED, KEISHA Referring Unavailable JOSAFATMEDMORGANAN Primary Care Unavailable Rylan Andrea Unavailable Unavailable Unavailable SalazarAnita Unavailable Rylan Andrea Primary Care Unavailable Dr. Lukas Oliveira Referring Unavailable Dr. Lukas Oliveira Attending Unavailable Estela Varma Referring Unavail able Rylan Andrea Primary Care Unavailable Dr. Lukas Oliveira Attending Unavailable Rylan Andrea Primary Care Unavailable Dr. Lukas Oliveira Referring Unavailable Dr. Lukas Oliveira Attending Unavailable MD Rylan Andrea Primary Care Provider [phone] MD Varghese Duval Referring Provider DO Estela Varma II Attending Provider MD Rylan Andrea Primary Care Provider [phone] MD Varghese Duval Referring Provider [phone] DO Estela Varma II Attending Provider DO Kali Longo Emergency Provider MD Tez Irene Admit Provider [phone] MD Tez Irene Attending Provider MD Rylan Andrea Primary Care Provider DO Estela Varma II Other Provider MD Varghese Duval Referring Provider [phone] DO Estela Varma II Attending Provider [phone] MD Varghese Duval Referring Provider Adamowicz II, DO Estela J Attending Provider MD Rachid Chase Attending Provider MD Varghese Duval Attending Provider Adamowicz II, DO Estela Rosales Attending Provider MD Annette Guardado Other Provider MD Varghese Duval Referring Provider Rachid Chase Unavailable MD Rylan Andrea Primary Care Provider [phone] MD Varghese Duval Referring Provider Adamowicz II, DO Estela J Attending Provider YULY Solomon Attending Provider EMRE, DR CLAY Primary Care [...] Attending Unavailable ADAMOWICZ, ESTELA J Consulting Unavailable WOODSTOCK, DR MARCE Fernandez Consulting Unavailable NADEREErrol, DR KRISHAN Flaherty Admitting Unavailable NADERER, DR KRISHAN Flaherty Attending Unavailable ANDREA, DR CLAY Primary Care Unavailable NADEREErrol, DR KRISHAN Flaherty Consulting Unavailable HAY ., DR ROUSE Consulting Unavailable ALEXANDRIA, DR MELANI Davis Admitting Unavailabl e REINECK, DR MELANI Davis Attending Unavailabl e REINECK, DR MEALNI Davis Consulting Unavailabl e ANDREA, DR CLAY [...] Unavailable ANDREA, DR CLAY Primary Care Unavailable ESTELA VARMA Attending Unavailable ESTELA VARMA Consulting Unavailable ESTELA VARMA Admitting Unavailable ANDREA, DR CLAY Admitting Unavailable ZIEBER, DR JESSE Norton Consulting Unavailable ANDREA, DR CLAY Primary Care Unavailable ANDREA, DR CLAY Attending Unavailable ANDREA, DR CLAY Consulting Unavailable MD Rylan Andrea Primary Care Provider MD Varghese Duval Referring Provider [phone] Kojo II, DO Estela Rosales Attending Provider KIKO Molina Emergency Provider MD Varghese uDval Referring Provider [phone] Kojo II, DO Estela Rosales Attending Provider MD Varghese Duval Referring Provider [phone] Kojo II, DO Estela Rosales Attending Provider Rylan Andrea MD Primary Care Provider Rafa STAIN MAKER, Marilu Unavailable Sanna ALMEIDA, Nilsa R Unavailable Eliseo GIBSON, Morenita Unavailable Carlota JIANG, Sanjuana Unavailable MD Rylan Andrea Primary Care Provider MD Varghese Duval Referring Provider [phone] Kojo II, DO Estela Rosales Attending Provider [phone] RYLAN ANDREA Referring Unavailable ANDREARYLAN Primary Care Unavailable RYLAN ANDREA Referring Unavailable RYLAN ANDREA Primary Care Unavailable MD Rylan Andrea Primary Care Provider [phone] DO Cathi Miranda Attending Provider Sanna ALMEIDA, Nilsa R Unavailable Shobha OD, Cindy Unavailable Ophelia James DO Unavailable [phone] Rylan Andrea MD Unavailable Eliseo GIBSON, Morenita Unavailable Zohra HANEY, Cindy Unavailable Emre HANEY, Rylan Flaherty Primary Care Provider Manpreet SALEEM Attending Unavailable Carlota Sanjuana JIANG Unavailable Ly, Cathi L Attending Unavailable Andrea, Rylan Primary Care Unavailable LyCathi Admitting Unavailable Andrea, Rylan Primary Care Unavailable Alen, Marilu Admitting Unavailable Alen, Marilu Attending Unavailable DeRiso, Varghese Referring Unavailable PETITTI, KAREN A Attending Unavailable WARCHOL, MARILU Referring Unavailable WARCHOL, MARILU Attending Unavailable PETITTI, KAREN A Attending Unavailable PETITTI, KAREN A Attending Unavailable LAUSE, NILSA R Attending Unavailable LAUSE, NILSA R Attending Unavailable WARCHOL, MARILU Attending Unavailable WARCHOL, MARILU Attending Unavailable WARCHOL, MARILU Attending Unavailable WARCHOL, MARILU Attending Unavailable Allergies Allergy Classification Reported Allergen(s) Allergy Type Date of Onset Reaction(s) Facility (4 sources) chlordiazePOXID E; Translations: [Librium] Drug Allergy Unknown [facility] (20 sources) Lisinopril; Translations: [lisinopril] Drug Allergy 1 Other (See Comments), [facility] (20 sources) Sertraline; Translations: [sertraline] Drug Allergy 2 [facility] (20 sources) chlordiazePOXID E; Translations: [chlordiazepoxi de] Drug Allergy 3 [facility] (1 source) Amino Acids Drug Allergy [facility] (1 source) Sertraline Drug Allergy 2 [facility] (20 sources) Lisinopril Allergy to substance 3 [facility] (1 source) Lisinopril Drug Allergy 4 [facility] Rep[facility] Medications Current Medications Medication Drug Class(es) Dates Sig (Normalized) Sig (Original) amoxicillin 500 mg oral tablet (2 sources) Penicillin-class Antibacterial Start: 01-13-2025 End: 01-23-2025 take 1 tablet by mouth in the morning amoxicillin (Amoxil) 500 MG tablet Indications: Acute non-recurrent frontal sinusitis Take 1 tablet (500 mg) by mouth in the morning and 1 tablet (500 mg) before bedtime. Do all this for 10 days. 20 tablet 01/13/2025 01/23/2025 Active aspirin 81 mg delayed release oral tablet (20 sources) Platelet Aggregation Inhibitor, Nonsteroidal Anti-inflammatory Drug Start: 09-08-2021 take 1 tablet by mouth in the morning Aspirin Low Dose 81 MG EC tablet Take 81 mg by mouth in the morning. as directed. 06/20/2022 Active Start: 05-03-2020 End: 08-17-2020 take 1 tablet by mouth once daily Aspirin 81 mg Tablet,Delayed Release (Dr/Ec) Discontinued 81 MG PO Daily May 03, 2020 12:00am August 17, 2020 8:44am Start: 03-02-2020 End: 05-03-2020 take 1 tablet by mouth once daily Aspirin 81 mg Tablet,Chewable Discontinued 81 MG PO Daily March 01, 2020 11:00pm May 03, 2020 10:59am take 1 tablet by dhaval th once daily Aspirin 81 81 MG 1 tablet Orally Once a day Active furosemide 40 mg oral tablet (20 sources) [...] 01, 2019 12:54pm take for ankle swelling melatonin 3 mg oral tablet (20 sources) Start: 10-29-2023 End: 01-06-2026 melatonin 3 MG tablet Indica tions: Primary insomnia Take 1 tablet (3 mg) by mouth as needed at bedtime for sleep 90 tablet 3 01/06/2025 01/06/2026 Active Start: 04-12-2023 End: 10-09-2023 melatonin 3 MG tablet Indica tions: Primary insomnia Take 1 tablet (3 mg) by mouth as needed at bedtime for sleep. 30 tablet 5 04/12/2023 10/09/2023 Active Start: 04-10-2022 End: 09-04-2022 take 1 tablet by mouth at bedtime as needed Melatonin 3 mg tablet Discontinued 3 MG PO Bedtime as needed for Insomnia April 10, 2022 12:00am September 04, 2022 10:23am Start: 09-01-2020 End: 02-01-2021 take 1 tablet by mouth at bedtime Melatonin 3 mg Tablet Discontinued 3 MG PO Bedtime August 31, 2020 11:00pm February 01, 2021 9:52am Start: 07-30-2019 End: 08-17-2020 take 1 capsule by mouth at bedtime as needed Melatonin 3 mg Capsule Discontinued 3 MG PO Bedtime as needed for Insomnia June 06, 2020 12:00am August 17, 2020 8:43am pantoprazole 40 mg delayed release oral tablet (20 sources) Proton Pump Inhibitor Start: 02-18-2024 pantoprazole (ProtoNix) 40 MG EC tablet Daily 02/18/2024 Active Start: 09-08-2023 End: 01-15-2024 take 1 tablet by mouth before mealtime pantoprazole (ProtoNix) 40 MG EC tablet Take 40 mg by mouth in the morning. Take before meals. 09/08/2023 01/15/2024 Discontinued polyethylene glycol 3350 18837 mg powder for oral solution (20 sources) Osmotic Laxative Start: 01-31-2024 Polyethylene Glycol 3350 (Miralax) 17 gram/dose powder Active 17 GM PO Daily as needed for constipation January 30, 2024 11:00pm Start: 08-17-2020 End: 09-01-2020 Polyethylene Glycol 3350 (Mi ralax) 17 gram/dose Powder Discontinued 17 GM PO Daily August 16, 2020 11:00pm September 01, 2020 1:44pm QUEtiapine 100 mg oral tablet (20 sources) Atypical Antipsychotic Start: 10-20-2024 End: 04-06-2025 QUEtiapine (SEROquel) 100 MG tablet Indications: Current moderate episode of major depressive disorder without prior episode (HCC) Take 1 tablet (100 mg) by mouth 3 (three) times a day Take 1 tablet in the morning and 2 tablets at night 270 tablet 01/06/2025 04/06/2025 Active Start: 03-17-2024 QUEtiapine (SE ROquel) 100 MG tablet Indications: [...] tablet 11 12/03/2023 Active Start: 04-10-2022 take 2 tablets by mo uth once daily at bedtime Quetiapine 100 mg tablet Active 200 MG PO Daily at bedtime April 10, 2022 12:00am Start: 04-10-2022 take 200 mg by mouth once daily at bedtime Quetiapine Active 200 MG PO Daily at bedtime April 10, 2022 1:00am Start: 04-05-2021 take 100 mg by mouth twice daily Quetiapine Active 100 MG PO Twice daily April 05, 2021 12:00am Start: 12-04-2019 End: 03-17-2024 take 1 tablet by mouth once daily in the morning Quetiapine 100 mg Tablet Discontinued 100 MG PO Every morning April 05, 2021 12:00am February 08, 2024 10:35am Start: 12-01-2019 End: 08-03-2020 Quetiapine (Seroquel) 100 mg tablet Discontinued 150 MG PO Bedtime December 01, 2019 12:23pm August 03, 2020 10:18am Start: 08-04-2019 End: 12-01-2019 take 1 tablet by mouth once daily at bedtime Quetiapine 100 mg Tablet Discontinued 100 MG PO Daily at bedtime August 03, 2019 11:00pm December 01, 2019 12:23pm Start: 07-30-2019 End: 08-04-2019 take 2 tablets by mouth once daily at bedtime Quetiapine 50 mg tablet Discontinued 100 MG PO Daily at bedtime July 29, 2019 11:00pm August 04, 2019 9:31am Start: 07-30-2019 End: 08-04-2019 take 100 mg by mouth once daily at bedtime Quetiapine Discontinued 100 MG PO Daily at bedtime July 30, 2019 12:00am August 04, 2019 10:31am Start: 09-22-2017 End: 07-30-2019 take 2 tablets by mouth once daily at bedtime Quetiapine 25 mg tablet Discontinued 50 MG PO Daily at bedtime September 21, 2017 11:00pm July 30, 2019 2:24pm Start: 09-22-2017 End: 07-30-2019 take 50 mg by mouth once daily at bedtime Quetiapine Discontinued 50 MG PO Daily at bedtime September 22, 2017 12:00am July 30, 2019 3:24pm take 1.5 tablets by mouth once daily at bedtime QUEtiapine Fumarate 100 MG TAKE 1.5 TABLETS BY MOUTH DAILY AT BEDTIME Oral Active vitamin b12 1 mg oral tablet (20 sources) Vitamin B12 Start: 06-29-2023 End: 06-17-2024 take 1 tablet by mouth once daily Cyanocobalamin (Vitamin B-12) 1,000 mcg tablet Active 1000 MCG PO Daily 60 June 29, 2023 12:00am Completed/Discontinued Medications Medication Drug Class(es) Dates Sig (Normalized) Sig (Original) acetaminophen 500 mg oral tablet (20 sources) Start: 08-17-2020 End: 09-01-2020 take 1 tablet by mouth every six hours as needed for pain Acetaminophen 500 mg Tablet Discontinued 500 MG PO Q6H as needed for Pain August 16, 2020 11:00pm September 01, 2020 1:42pm Start: 07-26-2020 End: 07-26-2020 take 2 tablets by mouth three times daily as needed for pain Acetaminophen 325 mg Tablet Discontinued 650 MG PO Three times daily as needed for Pain July 25, 2020 11:00pm July 26, 2020 3:16pm Start: 07-26-2020 End: 07-26-2020 take 650 mg [...] release Discontinued 650 MG PO Q8H December 03, 2019 11:00pm February 26, 2020 1:07pm acetaminophen 325 mg / HYDROcodone bitartrate 5 mg oral tablet (20 sources) Opioid Agonist Start: 12-25-2023 End: 12-30-2023 take 1 tablet by mouth every six hours for pain HYDROcodone-acetaminophen ([place]) 5-325 MG tablet Indications: Generalized abdominal pain Take 1 tablet by mouth every 6 (six) hours if needed for severe pain for up to 5 days 20 tablet 12/25/2023 12/30/2023 Start: 06-17-2022 End: 09-04-2022 take 1 tablet by mouth every six hours as needed for pain Hydrocodone-Acetaminophen 5-325 mg Table t Discontinued 1 - 2 TAB PO Q6H as needed for Pain Scale 6 - 10 40 5 June 17, 2022 September 04, 2022 10:24am Start: 12-03-2020 End: 02-01-2021 take 1 tablet by mouth every four to six hours as needed for pain Hydrocodone-Acetaminophen 5-325 mg Table t Discontinued 1 TAB PO EVERY 4-6 HOURS as needed for Pain 10 3 December 03, 2020 February 01, 2021 9:52am Start: 11-06-2020 End: 02-01-2021 take 1 tablet by mouth three times daily as needed for pain Hydrocodone-Acetaminophen 5-325 mg table t Discontinued 1 TAB PO Three times daily as needed for pain 9 3 November 06, 2020 February 01, 2021 9:51am acetaminophen 325 mg / oxyCODONE hydrochloride 5 mg oral tablet (20 sources) Opioid Agonist Start: 08-24-2021 End: 02-27-2022 take 1 tablet by mouth every six hours as needed for pain Oxycodone-Acetaminophen (Percocet) 5-325 mg Tablet Discontinued 1 TAB PO Q6H as needed for Pain 28 7 August 24, 2021 February 27, 2022 1:34pm Start: 02-01-2021 End: 04-05-2021 take 1 tablet by mouth every four hours as needed for pain Oxycodone-Acetaminophen (Percocet) 5-325 mg Tablet Discontinued 1 TAB PO Q4H as needed for Pain 30 7 February 01, 2021 April 05, 2021 10:47am Start: 12-04-2019 End: 05-03-2020 take 1-2 tablets by mouth every four hours as needed for pain Oxycodone-Acetaminophen (Percocet) 7.5-325 mg Tablet Discontinued 1 TAB PO Q4H as needed for pain 60 14 December 04, 2019 May 03, 2020 11:08am 1-2 tab #100 RF zero given on 12/29 [id number] 200 actuat albuterol 0.09 mg/actuat metered dose inhaler (20 sources) beta2-Adrenergic Agonist Start: 02-28-2020 End: 08-17-2020 Albuterol Sulfate 90 mcg/actuation HFA aerosol inhaler Discontinued 2 INH INHALATION Four times daily as needed for shortness of breath or wheezing February 27, 2020 11:00pm August 17, 2020 8:44am Start: 07-30-2019 End: 02-26-2020 take 2 puff(s) by inhalation four times daily as needed for wheezing Albuterol Sulfate (Proair Hfa) 90 mcg/actuation HFA aerosol inhaler Discontinued 2 PUFF INHALATION Four times daily as needed for Shortness Of Breath Or Wheezing July 29, 2019 11:00pm February 26, 2020 [...] hydrochloride 10 mg extended release oral tablet (18 sources) alpha-Adrenergic Joel Start: 09-22-2017 End: 07-30-2019 take 1 tablet by mouth once daily Alfuzosin 10 mg tablet extended release 24 hr Discontinued 10 MG PO Daily September 21, 2017 11:00pm July 30, 2019 2:23pm amLODIPine 5 mg oral tablet (20 sources) Dihydropyridine Calcium Channel Joel Start: 09-04-2022 End: 01-31-2024 take 1 tablet by mouth once daily Amlodipine 5 mg Tablet Discontinued 5 MG PO Daily September 03, 2022 11:00pm January 31, 2024 12:36pm Start: 09-01-2020 End: 06-15-2022 take 1 tablet by mouth once daily Amlodipine 5 mg Tablet Discontinued 5 MG PO Daily August 31, 2020 11:00pm June 15, 2022 1:51pm Start: 07-30-2019 End: 08-17-2020 take 1 tablet by mouth once daily in the morning Amlodipine (Norvasc) 5 mg tablet Discontinued 5 MG PO Every morning July 29, 2019 11:00pm August 17, 2020 8:44am amoxicillin 875 mg / clavulanate 125 mg [...] 12/25/2023 01/04/2024 bisacodyl 10 mg rectal suppository (18 sources) Stimulant Laxative Start: 08-17-2020 End: 09-01-2020 Bisacodyl (Dulcolax (Bisacodyl)) 10 mg Suppository Discontinued [address] Q24H as needed for Constipation August 16, 2020 11:00pm September 01, 2020 1:41pm buPROPion hydrochloride 100 mg oral tablet (20 sources) Aminoketone Start: 09-04-2022 End: 09-04-2022 Bupropion Hcl 100 mg Tablet Discontinued 100 MG PO Three times daily September 03, 2022 11:00pm September 04, 2022 10:24am administer 6 hours apart Start: 08-23-2021 End: 02-27-2022 take 1 tablet by mouth three times daily Bupropion Hcl 100 mg Tablet Discontinued 100 MG PO Three times daily September 08, 2021 11:00pm February 27, 2022 1:34pm busPIRone hydrochloride 15 m g oral tablet (20 sources) Start: 09-01-2020 End: 02-01-2021 Buspirone 15 mg tablet Discontinued 20 MG PO Three times daily September 01, 2020 1:49pm February 01, 2021 9:51am Start: 09-01-2020 End: 02-01-2021 take 20 mg by mouth three times daily Buspirone Discontinued 20 MG PO Three times daily September 01, 2020 2:49pm February 01, 2021 10:51am Start: 08-03-2020 End: 09-01-2020 take 1 tablet by mouth three times daily Buspirone 15 mg tablet Discontinued 15 MG PO Three times daily August 02, 2020 11:00pm September 01, 2020 1:50pm Start: 07-30-2019 End: 08-03-2020 take 1 tablet by mouth three times daily Buspirone 10 mg tablet Discontinued 10 MG PO TID@0900,1400,2200 December 01, [...] Muscle Relaxant Start: 08-03-2020 End: 08-17-2020 take 1 tablet by mouth every eight hours as needed for pain Cyclobenzaprine 5 mg Tablet Discontinued 5 MG PO Q8H as needed for pain or muscle spasm August 02, 2020 11:00pm August 17, 2020 8:43am Start: 07-26-2020 End: 07-26-2020 take 1 tablet by mouth three times daily as needed for pain Cyclobenzaprine 5 mg Tablet Discontinued 5 MG PO Three times daily as needed for Muscle Pain July 25, 2020 11:00pm July 26, 2020 3:21pm Start: 12-04-2019 End: 06-06-2020 take 1 tablet by mouth every eight hours as needed for muscle spasms Cyclobenzaprine 5 mg tablet Discontinued 5 MG PO Q8H as needed for muscle spasm December 04, 2019 12:34pm June 06, 2020 3:24pm dexamethasone 4 mg oral tablet (18 sources) Corticosteroid Start: 08-17-2020 End: 09-01-2020 take 1 tablet by mouth once daily Dexamethasone 4 mg Tablet Discontinued 4 MG PO Daily August 16, 2020 11:00pm September 01, 2020 1:42pm docusate sodium 100 mg oral capsule (20 sources) Start: 02-04-2024 End: 09-15-2024 take 1 capsule by mouth in the morning docusate sodium (Colace) 100 MG capsule Take 100 mg by mouth in the morning and 100 mg before bedtime. 02/04/2024 09/15/2024 Discontinued (Therapy completed) Start: 09-01-2020 End: 02-01-2021 take 1 capsule by mouth once daily Docusate Sodium (Colace) 100 mg Capsule Discontinued 100 MG PO Daily August 31, 2020 11:00pm February 01, 2021 9:51am docusate sodium 50 mg / sennosides, senior living 8.6 mg oral tablet (20 sources) Start: 11-29-2019 End: 06-06-2020 take 1 tablet by mouth twice daily as needed for constipation Sennosides-Docusate Sodium (Senexon-S) 8.6-50 mg tablet Discontinued 1 TAB PO Twice daily as needed for constipation December 01, 2019 12:23pm June 06, 2020 3:22pm escitalopram 5 mg oral tablet (20 sources) Serotonin Reuptake Inhibitor Start: 09-15-2024 End: 01-13-2025 take 1 tablet by mouth once daily escitalopram (Lexapro) 5 MG tablet Indications: Anxiety , Moderate episode of recurrent major depressive disorder (HCC) , Severe recurrent major depression without psychotic features (HCC) , Severe episode of recurrent major depressive disorder, without psychotic features (HCC) Take 1 tablet (5 mg) by mouth Daily 30 tablet 2 09/15/2024 01/13/2025 Discontinued (Therapy completed) Start: 12-01-2019 End: 09-01-2020 take 2 tablets by mouth once daily in the morning Escitalopram Oxalate (Lexapro) 10 mg tablet Discontinued 20 MG PO Every morning November 30, 2019 11:00pm September 01, 2020 1:42pm TAKE 2 TABLETS BY MOUTH ONE TIME A DAY Start: 08-04-2019 End: 12-01-2019 take 1 tablet by mouth once daily Escitalopram Oxalate 5 mg Tablet Discontinued 5 MG PO Daily August 03, 2019 11:00pm December 01, 2019 12:23pm 60 actuat fluticasone propionate 0.25 mg/actuat / [...] 0 Refills: 0 Ordered: 08-Sep-2021 DO Active 30 actuat fluticasone furoate 0.1 mg/actuat / umeclidinium 0.0625 mg/actuat / vilanterol 0.025 mg/actuat dry powder inhaler (20 sources) Anticholinergic, Corticosteroid, beta2-Adrenergic Agonist Start: 02-08-2024 Aetqbttstyp-Cpmxifmnb-Nlstqs er (Trelegy Ellipta) 100-62.5-25 mcg blister with device Active 1 INH INHALATION Daily February 07, 2024 11:00pm Start: 02-08-2024 Fluticasone-Um eclidin-Vilanter (Trelegy Ellipta) 100-62.5-25 mcg blister with device Active 1 INH INHALATION Daily February 08, 2024 12:00am Start: 01-10-2024 End: 01-13-2025 take 1 puff(s) by inhalation once daily Bfrychejwtu-Eqxkocwpx-Kgmwhc (Trelegy Ellipta) 100-62.5-25 MCG/ACT aerosol powder Indications: Chronic obstructive pulmonary disease, unspecified COPD type (HCC) Inhale 1 puff Daily 03/17/2024 01/13/2025 Discontinued (Reorder) Start: 07-26-2020 End: 08-17-2020 Umtieqzweof-Hajmvdlql-Jttciy er (Trelegy Ellipta) 100-62.5-25 mcg Blister With Device Discontinued 1 INH INHALATION Daily July 25, 2020 11:00pm August 17, 2020 8:43am Start: 07-26-2020 End: 08-17-2020 Trlvckvxtzj-Plykdzioc-Tckero er (Trelegy Ellipta) 100-62.5-25 mcg Blister With Device Discontinued 1 INH INHALATION Daily July 26, 2020 12:00am August 17, 2020 9:43am folic acid 1 mg oral tablet (20 sources) Start: 07-02-2023 End: 01-31-2024 take 1 tablet by mouth once daily Folic Acid 1 mg tablet Discontinued 0 .ROUTE .COMPLEX November 16, 2023 12:25pm January 31, 2024 12:36pm TAKE 1 TABLET BY MOUTH EVERY DAY Start: 07-02-2023 End: 11-16-2023 take 1 tablet by mouth once daily Folic Acid Discontinued 0 .ROUTE .COMPLEX July 02, 2023 10:56am November 16, 2023 1:25pm TAKE 1 TABLET BY MOUTH EVERY DAY Start: 11-01-2022 End: 01-31-2024 take 1 tablet by mouth once daily Folic Acid 1 mg Tablet Discontinued 1 MG PO Daily December 24, 2022 11:00pm July 02, 2023 9:56am Food Supplemt, Lactose-Reduc ed (Ensure) Liquid (18 sources) Start: 05-03-2020 End: 07-25-2020 Food Supplemt, Lactose-Reduc ed (Ensure) Liquid Discontinued 1 EACH PO Twice daily May 03, 2020 12:00am July 25, 2020 1:44pm Start: 05-03-2020 End: 07-25-2020 Food Supplemt, Lactose-Reduc ed (Ensure) Liquid Discontinued 1 EACH PO Twice daily May 03, 2020 1:00am July 25, 2020 2:44pm gabapentin 100 mg oral capsule (18 sources) Anti-epileptic Agent Start: 08-03-2020 End: 02-01-2021 take 2 capsules by mouth three times daily Gabapentin 100 mg Capsule Discontinued 200 MG PO Three times daily 180 August 02, 2020 11:00pm February 01, 2021 9:51am Start: 08-03-2020 End: 02-01-2021 take 200 mg by mouth three times daily Gabapentin Discontinued 200 MG PO Three times daily 180 August 03, 2020 12:00am February 01, 2021 10:51am hydroCHLOROthiazide 25 mg oral tablet (18 sources) Thiazide Diuretic Start: 09-22-2017 End: 07-30-2019 take 1 tablet by mouth once daily Hydrochlorothiazide 25 mg tablet Discontinued 25 MG PO Daily September 21, 2017 11:00pm July 30, 2019 2:23pm hydrocortisone 5 mg/ml topical cream (18 sources) Corticosteroid Start: 01-20-2020 End: 02-26-2020 Hydrocortisone 0.5 % Cream Discontinued 1 APPLIC TOPICAL Twice daily as needed for Itching January 19, 2020 11:00pm February 26, 2020 1:07pm HYDROmorphone hydrochloride 1 mg/ml oral solution (20 sources) Opioid Agonist Start: 07-26-2020 End: 07-26-2020 take 1 mg by mouth every six hours as needed for pain Hydromorphone (Dilaudid) 1 mg/mL liquid Discontinued 1 MG PO Q6H as needed for Pain July 26, 2020 10:15am July 26, 2020 11:32am Start: 01-13-2020 End: 07-26-2020 take 5 mg by mouth every six hours as needed for pain Hydromorphone (Dilaudid) 1 mg/mL Liquid Discontinued 5 MG PO Q6H as needed for Pain 140 7 January 14, 2020 July 26, 2020 10:15am hydrOXYzine hydrochloride 25 mg oral tablet (18 sources) Antihistamine Start: 09-22-2017 End: 07-30-2019 take 1 tablet by mouth every six hours as needed Hydroxyzine Hcl 25 mg tablet Discontinued 25 MG PO Q6H as needed for itching September 21, 2017 11:00pm July 30, 2019 2:24pm levothyroxine sodium 0.1 mg oral tablet (20 sources) l-Thyroxine Start: 09-08-2023 End: 07-12-2025 take 1 tablet by mouth before mealtime levothyroxine (Synthroid, Levoxyl) 100 MCG tablet Indications: 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 Take before meals. 03/17/2024 01/13/2025 Discontinued (Reorder) loperamide hydrochloride 2 mg oral tablet (18 sources) Opioid Agonist Start: 05-16-2020 End: 06-06-2020 Loperamide (Imodium A-D) 2 mg Tablet Discontinued 2 MG PO Every 2 hours as needed for Diarrhea May 16, 2020 12:00am June 06, 2020 3:23pm after each loose stool until symptoms controlled; do not exceed 16 mg total dose in 24 hrs LORazepam 1 mg oral tablet (18 sources) Benzodiazepine Start: 03-02-2020 End: 02-01-2021 take 1 tablet by mouth every six hours Lorazepam (Ativan) 1 mg Tablet Discontinued 1 MG PO Q6H March 01, 2020 11:00pm February 01, 2021 9:52am prescription given to patient on 03/02/20 for #90 RF x3 losartan potassium 50 mg oral tablet (18 sources) Angiotensin 2 Receptor Joel Start: 09-22-2017 End: 07-30-2019 take 1 tablet by mouth twice daily Losartan 50 mg tablet Discontinued 50 MG PO Twice daily September 21, 2017 11:00pm July 30, 2019 2:24pm Magic Mouth Wash (18 sources) Start: 12-30-2019 End: 07-26-2020 Magic Mouth Wash Discontinued 10 ML PO Every 6 hours as needed for Mouth Pain December 29, 2019 11:00pm July 26, 2020 [...] six megestrol acetate 125 mg/ml oral suspension (18 sources) Progestin Start: 07-26-2020 End: 08-17-2020 take 1 mL by mouth once daily Megestrol 625 mg/5 mL (125 mg/mL) suspension Discontinued 5 ML PO Daily July 25, 2020 11:00pm August 17, 2020 8:43am metoprolol tartrate 25 mg oral tablet (20 sources) beta-Adrenergic Joel Start: 09-09-2021 End: 04-10-2022 Metoprolol Tartrate 25 mg Tablet Discontinued 12.5 MG PO Twice daily September 08, 2021 11:00pm April 10, 2022 2:05pm Start: 09-09-2021 End: 04-10-2022 take 12.5 mg [...] (20 sources) Start: 06-15-2022 End: 09-04-2022 take 1 tablet by mouth once daily at bedtime Mirtazapine 15 mg tablet Discontinued 15 MG PO Daily at bedtime June 15, 2022 12:00am September 04, 2022 10:23am Start: 09-01-2020 End: 02-01-2021 take 1 tablet by mouth once daily at bedtime Mirtazapine (Remeron) 45 mg Tablet Discontinued 45 MG PO Daily at bedtime August 31, 2020 11:00pm February 01, 2021 9:52am Start: 08-03-2020 End: 08-17-2020 take 1 tablet by mouth once daily at bedtime Mirtazapine 15 mg Tablet Discontinued 15 MG PO Daily at bedtime August 02, 2020 11:00pm August 17, 2020 8:43am morphine sulfate 15 mg extended release oral tablet (18 sources) Opioid Agonist Start: 12-16-2019 End: 02-26-2020 take 1 tablet by mouth every twelve hours Morphine 15 mg Tablet Extended Release Discontinued 15 MG PO Q12H December 15, 2019 11:00pm February 26, 2020 1:07pm 24 hr nicotine 0.875 mg/hr transdermal system (20 sources) Cholinergic Nicotinic Agonist Start: 08-03-2020 End: 08-17-2020 apply 1 dose transdermal route every twenty-four hours Nicotine 21 mg/24 hr Patch 24 Hour Discontinued 1 EACH TRANSDERML Daily August 02, 2020 11:00pm August 17, 2020 8:43am Start: 08-03-2020 End: 08-17-2020 Nicotine Discontinued 1 EACH TRANSDERML Daily August 03, 2020 12:00am August 17, 2020 9:43am Start: 08-04-2019 End: 11-18-2019 apply 1 dose transdermal route every twenty-four hours Nicotine 21 mg/24 hr Patch 24 Hour Discontinued 1 EACH TRANSDERML Daily August 03, 2019 11:00pm November 18, 2019 11:50am Start: 08-04-2019 End: 11-18-2019 Nicotine Discontinued 1 EACH TRANSDERML Daily August 04, 2019 12:00am November 18, 2019 12:50pm 24 hr nitroglycerin 0.4 mg/hr transdermal system (20 sources) Nitrate Vasodilator Start: 09-09-2021 End: 02-27-2022 apply 0.4 mg transdermal route every hour Nitroglycerin 0.4 mg/hr Patch 24 Hour Discontinued 1 PATCH TRANSDERML Daily September 08, 2021 11:00pm February 27, 2022 1:33pm Start: 09-08-2021 End: 02-27-2022 apply 1 dose [...] MG SUBLINGUAL every 5 to 15 minutes as needed for Chest Pain April 05, 2021 12:00am February 27, 2022 1:34pm do not exceed 3 doses per episode End: 09-15-2024 nitroglycerin (Nitrostat) 0. 4 MG SL tablet 1 (one) time each day at the same time. 09/15/2024 Discontinued (Therapy completed) nystatin 454233 unt/ml oral suspension (18 sources) Polyene Antifungal Start: 07-26-2020 End: 08-17-2020 Nystatin 100,000 unit/mL suspension Discontinued 4 ML MUCOUS MEM Four times daily July 25, 2020 11:00pm August 17, 2020 8:43am omeprazole 20 mg delayed release oral tablet [...] tablet 12/25/2023 01/01/2024 Start: 06-05-2022 End: 01-15-2024 take 1 tablet by mouth once daily as needed for nausea Ondansetron Hcl 4 mg tablet Discontinued 4 MG PO Daily as needed for Nausea June 15, 2022 12:00am September 04, 2022 10:23am Start: 07-26-2020 End: 08-17-2020 Ondansetron 4 mg tablet,disintegrating Discontinued 8 MG PO every 6 to 8 hours as needed for Nausea July 26, 2020 10:15am August 17, 2020 8:43am Start: 07-26-2020 End: 08-17-2020 Ondansetron Discontinued 8 M G PO every 6 to 8 hours July 26, 2020 11:15am August 17, 2020 9:43am Start: 05-16-2020 End: 07-26-2020 Ondansetron 4 mg Tablet,Disintegrating Discontinued 4 MG PO every 6 to 8 hours as needed for Nausea May 16, 2020 12:00am July 26, 2020 10:15am Start: 11-18-2019 End: 11-18-2019 take 1 tablet by mouth every eight hours as needed for nausea Ondansetron Hcl (Zofran) 8 mg Tablet Discontinued 8 MG PO Q8H as needed for Nausea November 17, 2019 11:00pm November 18, 2019 12:47pm OXcarbazepine 600 mg oral tablet (18 sources) Anti-epileptic Agent Start: 09-01-2020 End: 02-01-2021 [...] 2020 8:44am Start: 06-15-2020 End: 07-25-2020 take 1 tablet by mouth every six hours as needed for pain Oxycodone 10 mg Tablet Discontinued 10 MG PO Q6H as needed for Pain 56 June 15, 2020 July 25, 2020 1:41pm Start: 02-26-2020 End: 08-03-2020 take 1 tablet by mouth every six hours Oxycodone (Roxicodone) 15 mg tablet Discontinued 15 MG PO Q6H February 25, 2020 11:00pm August 03, 2020 10:18am Start: 01-15-2020 End: 02-26-2020 take 1 tablet by mouth every four hours Oxycodone 15 mg Tablet,Oral Only,Ext.Rel.12 Hr Discontinued 15 MG PO Q4H January 14, 2020 11:00pm February 26, 2020 2:34pm Start: 11-29-2019 End: 12-04-2019 take 1 tablet by mouth every six hours as needed for pain Oxycodone (Roxicodone) 5 mg tablet Discontinued 5 MG PO Every 6 hours as needed for Pain December 01, 2019 12:23pm December 04, 2019 1:33pm Further refills, if needed, per Palliative or PCP potassium chloride 20 meq powder for oral solution (20 sources) Start: 01-24-2020 End: 02-10-2020 take 20 mEq by mouth once daily Potassium Chloride 20 mEq packet Discontinued 20 MEQ PO Daily January 23, 2020 11:00pm February 10, 2020 12:07pm Start: 11-29-2019 End: 02-26-2020 take 1 capsule by mouth once daily Potassium Chloride 10 mEq capsule, extended release Discontinued 10 MEQ PO Daily November 28, 2019 11:00pm February 26, 2020 1:07pm Take with Lasix. predniSONE 50 mg oral tablet (20 sources) Start: 09-01-2020 End: 02-01-2021 Prednisone 50 mg Tablet Discontinued 60 MG PO Daily August 31, 2020 11:00pm February 01, 2021 9:52am Start: 09-01-2020 End: 02-01-2021 take 60 mg by mouth once daily Prednisone Discontinued 60 MG PO Daily September 01, 2020 12:00am February 01, 2021 10:52am Start: 12-23-2019 End: 02-10-2020 take 1 tablet by mouth once daily Prednisone 50 mg Tablet Discontinued 50 MG PO Daily 02 20December 25, 2019 12:33pm February 10, 2020 12:06pm take 50 mg a day x 10 days prochlorperazine 10 mg oral tablet (18 sources) Phenothiazine Start: 11-20-2019 End: 12-01-2019 take 1 tablet by mouth every six hours as needed for nausea Prochlorperazine Maleate (Compazine) 10 mg Tablet Discontinued 10 MG PO Q6H as needed for Nausea November 19, 2019 11:00pm December 01, 2019 12:54pm take for nausea promethazine hydrochloride 25 mg oral tablet (20 sources) Phenothiazine Start: 06-06-2020 End: 08-17-2020 take 1 tablet by mouth three times daily as needed for nausea Promethazine 25 mg tablet Discontinued 25 MG PO Three times daily as needed for Nausea June 06, 2020 3:25pm August 17, 2020 8:43am Start: 05-16-2020 End: 06-06-2020 take 1 tablet by mouth every six hours as needed for nausea Promethazine 25 mg Tablet Discontinued 25 MG PO Q6H as needed for Nausea May 16, 2020 12:00am June 06, 2020 3:25pm Sennosides (17 sources) Start: 07-26-2020 End: 07-26-2020 take 8.6 mg by mouth twice daily Sennosides Discontinued 8.6 MG PO Twice daily July 25, 2020 11:00pm July 26, 2020 3:21pm Start: 07-26-2020 End: 07-26-2020 take 8.6 mg by mouth twice daily Sennosides Discontinued 8.6 MG PO Twice daily July 26, 2020 12:00am July 26, 2020 4:21pm Sennosides (Senna Lax) 8.6 mg Tablet (18 sources) Start: 08-03-2020 End: 08-17-2020 take 2 [...] 03, 2020 12:00am August 17, 2020 9:43am Sennosides 8.6 mg Capsule (1 source) Start: 07-26-2020 End: 07-26-2020 take 1 capsule by mouth twice daily Sennosides 8.6 mg Capsule Discontinued 8.6 MG PO Twice daily July 25, 2020 11:00pm July 26, 2020 3:21pm sodium chloride 1000 mg oral tablet (11 [...] (Therapy completed) Sucralfate (Carafate) 100 mg/mL Suspension (18 sources) Start: 01-21-2020 End: 07-26-2020 take 1 [...] mg zolpidem tartrate 5 mg oral tablet (20 sources) gamma-Aminobutyric Acid-ergic Agonist Start: 06-17-2024 End: 09-15-2024 zolpidem (Ambien) 5 MG tablet Indications: Primary insomnia Take 1 tablet (5 mg) by mouth as needed at bedtime for sleep 30 tablet 06/17/2024 09/15/2024 Discontinued (Therapy completed) Start: 08-17-2020 End: 09-01-2020 take 1 tablet by mouth once daily at bedtime as needed for sleep Zolpidem 5 mg Tablet Discontinued 5 MG PO Daily at bedtime as needed for Sleep August 16, 2020 11:00pm September 01, 2020 1:45pm take 2 tablets by mo uth at [...] lung, unspecified] Onset: 0 Resolved: 2 Chronic Comment on above: s/p chemo & radiatio n. undergoing Imunnotherapy Cancer of bronchus; lung (20 sources) History of malignant neoplasm of thoracic cavity structure; Translations: [Personal history of other malignant neoplasm of bronchus and lung] Onset: 1 06-06-2020 Episodic Cataract (20 sources) Bilateral age-related nuclear cataracts; [...] 3 09-25-2022 Chronic Miscellaneous mental health disorders (6 sources) Primary insomnia; Translations: [Primary insomnia] 01-15-2024 [...] Chronic Other aftercare (1 source) Other terminal carman (current) drug therapy; Translations: [OTH STICK FEEDER CURRENT DRUG THERAPY] Onset: 3 Episodic Other aftercare (1 source) 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; Translations: [[facility] CURRENT USE OF ASPIRIN] Onset: 3 Episodic Other aftercare (4 sources) Encounter for follow-up examination after completed treatment for conditions other than malignant neoplasm; Translations: [Unspecified follow-up examination] 01-15-2024 Episodic Other aftercare (2 sources) Removal of sutures done; Translations: [Encounter for removal of sutures] 07-14-2024 Episodic Other gastrointestinal disorders (20 sources) Constipation; Translations: [Constipation, unspecified] 09-02-2020 Episodic Other gastrointestinal disorders (15 sources) Diarrhea, unspecified; Translations: [Diarrhea] 02-27-2022 Episodic Other gastrointestinal disorders (2 sources) Constipation, unspecified; Translations: [Constipation, unspecified] 01-31-2024 Episodic Other inflammatory condition of skin (3 sources) Erythema of skin; Translations: [Other specified erythematous conditions] 06-16-2024 Episodic Other lower respiratory disease (3 sources) Lung field abnormal; Translations: [Other nonspecific abnormal finding of lung field] Episodic Other lower respiratory disease (9 sources) Shortness of breath; Translations: [Shortness of breath] Onset: 2 Episodic Other lower respiratory disease (20 sources) Dyspnea; Translations: [Shortness of breath] Onset: 4 Resolved: 4 06-22-2022 Episodic Other lower respiratory disease (4 [...] Resolved: 2 Chronic Other nervous system disorders (15 sources) Neoplasm related pain (acute) (chronic); Translations: [...] Episodic Other non-traumatic joint disorders (15 sources) Pain in unspecified joint; Translations: [Pain in joint, site unspecified] 02-27-2022 Episodic Other nutritional; endocrine; and metabolic disorders (20 sources) Hypoalbuminemia; Translations: [Other disorders of plasma-protein metabolism, not elsewhere classified] Onset: 3 09-25-2022 Chronic Other nutritional; endocrine; and metabolic disorders (9 sources) Abnormal weight loss; Translations: [Loss of weight] 09-19-2022 Episodic Other skin disorders (3 sources) Epidermoid cyst; Translations: [Epidermal cyst] 06-16-2024 Episodic Other skin disorders (2 sources) Loss of hair; Translations: [Nonscarring hair loss, unspecified] 06-17-2024 Episodic Other skin disorders (2 sources) Xeroderma; Translations: [Xerosis cutis] 06-17-2024 Episodic Other upper respiratory infections (4 sources) Acute frontal sinusitis; Translations: [Acute frontal sinusitis, unspecified] 01-14-2025 Episodic Peripheral and visceral atherosclerosis (2 sources) [...] adult] Episodic Residual codes; unclassified (15 sources) Edema, unspecified; Translations: [Edema] 02-27-2022 Episodic [...] W/AND (SUSP) EXPOS COVID-19] Onset: 2 Unclassified (4 sources) Patient on antidepressant monitoring plan Onset: 5 09-15-2024 Past or Other Problems Problem Classification Problem Date Documented Da te Episodic/Chronic Abdominal pain (20 sources) Abdominal pain; Translations: [Unspecified abdominal pain] Onset: 11-08-2023 Resolved: 04-03-2024 05-16-2020 Episodic Administrative/social admission (20 sources) Patient encounter status; Translations: [Other specified counseling] Onset: 11-08-2023 Resolved: 11-08-2023 12-03-2019 Episodic Cardiac dysrhythmias (20 sources) Tachycardia; Translations: [...] disorders; Translations: [DEPRESSION UNSPECIFIED] Onset: 04-12-2023 Resolved: 01-13-2025 04-12-2023 Nausea and vomiting (20 sources) Nausea; [...] Resolved: 11-08-2023 05-16-2020 Episodic Other gastrointestinal disorders (20 sources) Personal history of other diseases of the digestive system; Translations: [History of small bowel obstruction] Onset: 04-03-2024 Resolved: 04-03-2024 01-31-2024 Episodic Other liver diseases (20 sources) Elevated liver enzymes level; Translations: [Abnormal levels of other serum enzymes] Onset: 06-18-2018 10-19-2022 Episodic Other nervous system disorders (20 sources) [...] Translations: [Anorexia] Onset: 09-25-2022 09-25-2022 Episodic Other nutritional; endocrine; and metabolic disorders (2 sources) Adult failure to thrive syndrome; Translations: [Adult failure to thrive] Onset: 12-21-2023 12-21-2023 Episodic Other nutritional; endocrine; and metabolic disorders (7 sources) Weight decreased; Translations: [Abnormal weight loss] Onset: 11-08-2023 Resolved: 11-08-2023 09-04-2022 Episodic Other screening for suspected conditions (not [...] Test Name Value Interpretation Reference Range Facility ALL T3 FREEon 11-26-2024 Free T3 [Mass/Vol] 2.1 pg/mL Low 2.18 - 3. 98 pg/mL [facility] Interpretation and review of laboratory results Abnormal [facility] ALL THYROID STIM HORMONEon 0 11-26-2024 TSH Qn 2.572 m[IU]/L [facility] No Panel Informationon 11-26 [facility] CBC W Auto Differential pane l (Bld)on 07-11-2024 Basophils/100 WBC Manual cnt (Syn fld) 0.8 % . [facility] Eosinophils/100 WBC Manual cnt (Syn fld) 4 % . [facility] Lymphocytes/100 WBC Manual cnt (Syn fld) 11.2 % . [facility] MCHC (RBC) [Mass/Vol] 33.7 g/dL 32.5 - 35.6 g/dL [facility] Monocytes+Macrophages /100 WBC Manual cnt (Syn fld) 6.5 % . [facility] Neutrophils/100 WBC Manual cnt (Syn fld) 77.5 % . [facility] NRBC 0 /100{WBC} 0 - 0.5 /100{WBC} [facility] RBC LM.HPF (Urine sed) [#/Area] 4.34 10*6/uL 3.90 - 5.60 10*6/uL [facility] WBC LM.HPF (Urine sed) [#/Area] 9.5 10*3/uL 4.1 - 10.5 10*3/uL [facility] CT abdomen pelvis w conon CT abdomen pelvis w [facility] [place] [address] CT Scan Report Signed Patient: Kirill Echols MR#: [id number] 194 : 1965 Acct:[id number] Age/Sex: 59 / M ADM Date: 07/11/24 Loc: [facility]: [facility] Att[facility] Dr: Estela Varma II DO Copies to: Estela Varma II, DO Ordering Provider: Estela Varma II, DO Date of Service: 07/11/24 CT/CT chest w con: C34.90 - Malignant neoplasm of unspecified part of unspec... ([id number]) CT/CT abdomen pelvis w con: C34.90 - [...] bladder and prostate gland appear grossly unremarkable.] Peritoneum/Retroperitone um:No free air or free fluid or lymphadenopathy.[ Abd wall/Bones:No acute findings. Osseous structures demonstrate degenerative change.[ CT/CT chest w con IMPRESSION: No CT evidence of tumor recurrence or metastatic disease. Impression dictated by: Victorino Ellison Jr., D.O.07/11/2024 3:31 PM Dictation Location: [place] [address] Transcribed By: [facility] 07/11/24 1531 Dictated By: Victorino Ellison Jr, DO 07/11/24 1527 Signed By: 07/11/24 1531 Normal [facility] Complete Blood Count Auto Di ffon 07-11-2024 Basophils (Bld) [#/Vol] 0.1 10*3/uL Normal 0.0-0.2 [facility] Comment on above: Result Comment: PERF ORMED BY: [place] [address] PATHOLOGIST GEODETIC TECHNICIAN GRANT REGAN M.D. Performed By: #### C BC #### [address] Basophils/100 WBC (Bld) 0.8 % Normal . [facility] Comment on above: Performed By: #### C BC #### [place] [address] [place] Eosinophils (Bld) [#/Vol] 0.4 10*3/uL Normal 0.0-0.45 [facility] Comment on above: Performed By: #### C BC #### [address] Eosinophils/100 WBC (Bld) 4.0 % Normal . [facility] Comment on above: Performed By: #### C BC #### [address] Erythrocyte distribution width (RBC) [Ratio] 16.2 % High 12.0-14.8 [facility] Comment on above: Performed By: #### C BC #### [address] Hematocrit (Bld) [Volume fraction] 41.1 % Normal 38.8-50.0 [facility] Comment on above: Performed By: #### C BC #### [address] Hemoglobin (Bld) [Mass/Vol] 13.8 g/dL Normal 13.0-17.0 [facility] Comment on above: Performed By: #### C BC #### [address] Lymphocytes (Bld) [#/Vol] 1.1 10*3/uL Normal 1.00-4.8 [facility] Comment on above: Performed By: #### C BC #### [address] Lymphocytes/100 WBC (Bld) 11.2 % Normal . [facility] Comment on above: Performed By: #### C BC #### [address] MCH (RBC) [Entitic mass] 31.9 pg Normal 27.5-35.2 [facility] Comment on above: Performed By: #### C BC #### [address] MCV (RBC) [Entitic vol] 94.7 fL Normal 83.5-101 [facility] Comment on above: Performed By: #### C BC #### [address] Mean Corpuscular HGB Conc 33.7 g/dL Normal 32.5-35.6 [facility] Comment on above: Performed By: #### C BC #### [address] Monocytes (Bld) [#/Vol] 0.6 10*3/uL Normal 0.0-0.8 [facility] Comment on above: Performed By: #### C BC #### [address] Monocytes/100 WBC (Bld) 6.5 % Normal . [facility] Comment on above: Performed By: #### C BC #### [address] Neutrophils (Bld) [#/Vol] 7.4 10*3/uL Normal 1.8-7.7 [facility] Comment on above: Performed By: #### C BC #### [address] Neutrophils/100 WBC (Bld) 77.5 % Normal . [facility] Comment on above: Performed By: #### C BC #### [address] NRBC% 0.0 /100{WBC} Normal 0-0.5 [facility] Comment on above: Performed By: #### C BC #### [facility] [address] Platelet mean volume (Bld) [Entitic vol] 7.4 fL Normal 6.6-10.1 [facility] Comment on above: Performed By: #### C BC #### [facility] [address] [place] [id number] [facility] Platelets (Bld) [#/Vol] 180 10*3/uL Normal 150-450 [facility] Comment on above: Performed By: #### C BC #### [facility] [address] [place] [address] [place] RBC (Bld) [#/Vol] 4.34 10*6/uL Normal 3.90-5.60 [facility] Comment on above: Performed By: #### C BC #### [facility] [address] WBC (Bld) [#/Vol] 9.5 10*3/uL Normal 4.1-10.5 [facility] Comment on above: Performed By: #### C BC #### [facility] [address] Comprehensive Metabolic Pane nicolas 07-11-2024 Albumin [Mass/Vol] 4.0 g/dL Normal 3.5-5.7 [facility] Comment on above: Order Comment: STAT FOR CT Performed By: #### C MP #### [address] Albumin/Globulin [Mass ratio] 1.3 {ratio} Normal [facility] Comment on above: Order Comment: STAT FOR CT Performed By: #### C MP #### [facility] [address] [place] [address] [place] ALP [Catalytic activity/Vol] 113 U/L High 34-104 [facility] Comment on above: Order Comment: STAT FOR CT Performed By: #### C MP #### [facility] [address] ALT [Catalytic activity/Vol] 9 U/L Normal 7-52 [facility] Comment on above: Order Comment: STAT FOR CT Performed By: #### C MP #### [facility] [address] Anion gap [Moles/Vol] 11.5 mmol/L Normal 6.0-15.0 [facility] Comment on above: Order Comment: STAT FOR CT Performed By: #### C MP #### [address] AST [Catalytic activity/Vol] 12 U/L Low 13-39 [facility] Comment on above: Order Comment: STAT FOR CT Performed By: #### C MP #### [address] Bilirubin [Mass/Vol] 0.4 mg/dL Normal 0.3-1.0 [facility] Comment on above: Order Comment: STAT FOR CT Performed By: #### C MP #### [address] Calcium [Mass/Vol] 8.9 mg/dL Normal 8.6-10.3 [facility] Comment on above: Order Comment: STAT FOR CT Performed By: #### C MP #### [place] [address] [place] Chloride [Moles/Vol] 107 mmol/L Normal 98-107 [facility] Comment on above: Order Comment: STAT FOR CT Performed By: #### C MP #### [place] [address] [place] CO2 [Moles/Vol] 22.1 mmol/L Normal 21.0-31.0 [facility] Comment on above: Order Comment: STAT FOR CT Performed By: #### C MP #### [place] [address] [place] Creatinine [Mass/Vol] 1.52 mg/dL High 0.70-1.30 [facility] Comment on above: Order Comment: STAT FOR CT Performed By: #### C MP #### [place] [address] [place] Creatinine Clr Calc Pharmacy 51.70 Normal [facility] Comment on above: Order Comment: STAT FOR CT Result Comment: PERF ORMED BY: [place] [address] PATHOLOGIST GEODETIC TECHNICIAN GRANT REGAN M.D. Performed By: #### C MP #### [address] Estimated GFR 52.458 mL/Min Normal [facility] Comment on above: Order Comment: STAT FOR CT Performed By: #### C MP #### [address] Globulin (S) [Mass/Vol] 3.1 g/dL Normal [facility] Comment on above: Order Comment: STAT FOR CT Performed By: #### C MP #### [address] Glucose [Mass/Vol] 73 mg/dL Normal 70-100 [facility] Comment on above: Order Comment: STAT FOR CT Result Comment: [place] Glucose Reference Range is dependent on time and content of last meal. Glucose of more than 200 mg/dL in a nonstressed, ambulatory subject supports the diagnosis of Diabetes Mellitus. ADA recommended reference range Performed By: #### C MP #### [address] Potassium [Moles/Vol] 3.6 mmol/L Normal 3.5-5.1 [facility] Comment on above: Order Comment: STAT FOR CT Performed By: #### C MP #### [address] Protein [Mass/Vol] 7.1 g/dL Normal 6.4-8.9 [facility] Comment on above: Order Comment: STAT FOR CT Performed By: #### C MP #### [address] Sodium [Moles/Vol] 137 mmol/L Normal 136-145 [facility] Comment on above: Order Comment: STAT FOR CT Performed By: #### C MP #### [address] [place] [address] [facility] Urea nitrogen [Mass/Vol] 17 mg/dL Normal 7-25 [facility] Comment on above: Order Comment: STAT FOR CT Performed By: #### C #### [facility] [address] [place] [id number] [facility] Comprehensive metabolic pane nicolas 07-11-2024 Albumin [Mass/Vol] 4 g/dL 3.5 - 5.7 g/dL [facility] Albumin/Globulin [Mass ratio] 1.3 {ratio} [facility] ALP [Catalytic activity/Vol] 113 U/L High 34 - 104 U/L [facility] ALT [Catalytic activity/Vol] 9 U/L 7 - 52 U/L [facility] Anion gap [Moles/Vol] 11.5 mmol/L 6.0 - 15.0 meq/L [facility] AST [Catalytic activity/Vol] 12 U/L Low 13 - 39 U/L [facility] Bilirubin [Mass/Vol] 0.4 mg/dL 0.3 - 1 .0 mg/dL [facility] Calcium [Mass/Vol] 8.9 mg/dL 8.6 - 10. 3 mg/dL [facility] Chloride [Moles/Vol] 107 mmol/L 98 - 10 7 mmol/L [facility] CO2 [Moles/Vol] 22.1 mmol/L 21.0 - 31.0 mmol/L [facility] Creatinine (U) [Mass/Vol] 1.52 mg/dL High 0.70 - 1.30 mg/dL [facility] CREATININE CLR CALC PHARMACY 51.7 [facility] GFR/1.73 sq M.predicted MDRD (S/P/Bld) [Vol rate/Area] 52.458 mL/min/{1.73_m2} mL/Min [facility] Globulin (S) [Mass/Vol] 3.1 g/dL [facility] Glucose [Mass/Vol] 73 mg/dL 70 - 100 mg/dL [facility] Comment on above: Random Glucose Refer ence Range is dependent on time and content of last meal. Glucose of more than 200 mg/dL in a nonstressed, ambulatory subject supports the diagnosis of Diabetes Mellitus. ADA recommended reference range Potassium [Moles/Vol] 3.6 mmol/L 3.5 - 5.1 mmol/L [facility] Protein [Mass/Vol] 7.1 g/dL 6.4 - 8.9 g/dL [facility] Sodium [Moles/Vol] 137 mmol/L 136 - 145 mmol/L [facility] Urea nitrogen [Mass/Vol] 17 mg/dL 7 - 25 mg/dL [facility] STAT FOR CT [facility] Panel Informationon 07-11 Interpretation and review of laboratory results Abnormal [facility] [place] [address] Ultrasound Report Signed Patient: KIRILL ECHOLS MR#: [id number] : 1965 Acct:[id number] Age/Sex: 59 / M ADM Date: 07/08/24 Loc: US Attending Dr: Marilu Bonner NP Ordering Physician: Marilu Bonner NP Date of Service: 07/08/24 Procedure(s): US thyroid Accession Number(s): [id number] cc: RYLAN ANDREA ; Marilu Bonner NP [place] [address] Patient Name: KIRILL ECHOLS MRN: [id number] date: 1965 Sex: M Assigned Patient Location: US Current Patient Location: US Accession/Order Number: [id number] Exam Date: 07/08/2024 13:54 Report Date: 07/08/2024 13:59 At the request of: MARILU BONNER NP Procedure: US thyroid THYROID ULTRASOUND CLINICAL DATA: Thyromegaly. COMPARISON: Chest CT 11/07/2023 The right thyroid lobe measures 4.7 x 1.3 x 0.9 cm. The left lobe measures 3.7 x 1.5 x 1.1 cm. The isthmus measures 3 mm. There is uniform echogenicity. Mild hyperemia is seen. No discrete thyroid nodules were measured. US/US thyroid IMPRESSION: NO THYROID NODULARITY. MILD HYPEREMIA. Impression dictated by: Ashley Velasquez M.D.07/08/2024 1:59 PM Dictation Location: [place] [address] Electronically authenticated by: [id number] Y Date: 07/08/2024 13:59 Dictated By: Ashley Velasquez M.D. Signed By: 07/08/24 1401 DD/ 1359 TD/TT: [facility] Post Delivery: [facility] Radiology, Radiologluiz roth MD - 07/08/2024 [place] [address] Ultrasound Report Signed Patient: KIRILL ECHOLS MR#: [id number] : 1965 Acct:[id number] Age/Sex: 59 / M ADM Date: 07/08/24 Loc: US Attending Dr: Marilu Bonner NP Ordering Physician: Marilu Bonner NP Date of Service: 07/08/24 Procedure(s): US thyroid Accession Number(s): [id number] cc: RYLAN ANDREA ; Marilu Bonner NP The [place] [id number] Patient Name: KIRILL ECHOLS MRN: [facility]:[id number] date: 1965 Sex: M Assigned Patient Location: US Current Patient Location: US Accession/Order Number: [id number] Exam Date: 07/08/2024 13:54 Report Date: 07/08/2024 13:59 At the request of: MARILU BONNER NP Procedure: US thyroid THYROID ULTRASOUND CLINICAL DATA: Thyromegaly. COMPARISON: Chest CT 11/07/2023 The right thyroid lobe measures 4.7 x 1.3 x 0.9 cm. The left lobe measures 3.7 x 1.5 x 1.1 cm. The isthmus measures 3 mm. There is uniform echogenicity. Mild hyperemia is seen. No discrete thyroid nodules were measured. US/US thyroid IMPRESSION: NO THYROID NODULARITY. MILD HYPEREMIA. Impression dictated by: Ashley Velasquez M.D.07/08/2024 1:59 PM Dictation Location: [place] [address] Electronically authenticated by: [id number] Y Date: 07/08/2024 13:59 Dictated By: Ashley Velasquez M.D. Signed By: 07/08/24 140 DD/ 2478 TD/TT: Par[employer] Post Delivery: [facility] Radiology Study observation (narrative) [facility] US Thyroid glandOrdered By: Radiologist Radiology on 07-08-2024 [facility] Work Phone: No Panel Informationon 07-07 [facility] Skin excisionon 07-07-2024 Lesion length (cm): 1.6 Lesion width (cm): 1.6 Margin per side (cm): 0 Total excision diameter (cm): 1.6 Informed consent: discussed and consent obtained Informed consent comment: Risks and possible complications were discussed as noted on the consent form. The consent form was signed prior to the procedure. Timeout: patient name, date of , surgical site, and procedure verified Timeout comment: Patient and provider identified site. Site was marked and excision was drawn out. Photo was taken and shown to patient, patient verified this is the correct site. Procedure prep: Patient was prepped and draped in usual sterile fashion (The planned incision lines were drawn along relaxed skin tension lines, if possible, to minimize scarring and deformity of surrounding structures.) Prep type: Chlorhexidine Anesthesia: the lesion was anesthetized in a standard fashion Anesthesia comment: The local anesthetic was injected to create a field block at the site of the procedure. Anesthetic: 1% lidocaine w/ epinephrine 1-100,000 buffered w/ 8.4% NaHCO3 Instrument used: #15 blade Instrument used comment: Incisions were made as drawn, and the surrounding tissue was undermined until the skin edges could be approximated without undue tension. Any tissue redundancies were removed. Hemostasis achieved with: electrodesiccation Additional details: Amount of lidocaine used: 3.0 ml Estimated blood loss: 2.0 ml [facility] Skin repairon 07-07-2024 Complexity: Intermed iate Final length (cm): 2.8 Reason for type of repair: allow closure of the large defect Undermining: edges undermined Undermining comment: The surrounding tissue was undermined until the skin edges could be approximated without undue tension. Any tissue redundancies were removed. Subcutaneous layers (deep stitches): Suture size: 5-0 Suture type: Monocryl (poliglecaprone 25) Stitches: Buried horizontal mattress (Closure was performed in a layered fashion with subcutaneous tissue closed first using tension-bearing absorbable sutures to the level of the superficial fascia.) Fine/surface layer approximation (top stitches): Suture size: 6-0 Suture type comment: Surgipro Stitches: simple running Stitches comment: Epicuticular skin sutures were then placed with minimal tension. Suture removal (days): 7 Outcome: patient tolerated procedure well with no complications Post-procedure details: sterile dressing applied and wound care instructions given Post-procedure details comment: It was emphasized to the patient to contact the office for any signs of infection, uncontrollable bleeding, or complications. Dressing type: bandage [facility] ALL CBC WITH AUTO DIFFon BASOPHILS ABSOLUTE AUTO 0.1 [facility] Basophils/100 WBC (Bld) 1.2 % 0.2 - 2.0 % [facility] Eosinophils/100 WBC (Bld) 7.1 % High 0.9 - 7.0 % [facility] Erythrocyte distribution width (RBC) [Ratio] 16.7 % High 11.0 - 15.0 % [facility] Hematocrit (Bld) [Volume fraction] 40.3 % Low 42.0 - 54.0 % [facility] Hemoglobin (Bld) [Mass/Vol] 13.6 g/dL Low 14.0 - 18.0 g/dL [facility] IMMATURE GRANULOCYTES ABS AUTO 0.01 [facility] Immature granulocytes/100 WBC (Bld) 0.1 % 0.0 - 0.5 % [facility] Interpretation and review of laboratory results Abnormal [facility] LYMPHOCYTES ABSOLUTE AUTO 1.8 [facility] Lymphocytes/100 WBC (Bld) 26.3 % 20.5 - 60.0 % [facility] MCH (RBC) [Entitic mass] 30.9 pg 25.9 - 34.0 pg [facility] MCHC (RBC) [Mass/Vol] 33.7 g/dL 29.9 - 35.2 g/dL [facility] MCV (RBC) [Entitic vol] 91.6 fL 80.0 - 94.0 fL [facility] MONOCYTES ABSOLUTE AUTO 0.7 [facility] Monocytes/100 WBC (Bld) 9.9 % 1.7 - 12.0 % [facility] NEUTROPHILS ABSOLUTE AUTO 3.8 [facility] Neutrophils/100 WBC (Bld) 55.4 % 43.0 - 75.0 % [facility] Platelet mean volume (Bld) [Entitic vol] 9 fL Low 9.5 - 13.5 fL [facility] TBH EO # 0.5 [facility]H PLT 222 [facility] TB RBC 4.4 Low [facility] TB WBC 6.9 [facility] CLINISYNC [facility] METRO IRON AND TIBCon 2024 TB IRON 90 ug/dL 65.0 - 175.0 ug/dL [facility] TB PERCENT IRON SATURATION 36 % [facility] TOTAL IRON BINDING CAPACITY 250 ug/dL 250.0 - 450.0 ug/dL [facility] Amphetamine Screen Ql (U)Ord ered By: Cathi Miranda on 02-18-2024 Amphetamines Ql (U) Negative Negative [facility] Barbiturates [Presence] in U rine by Screen methodOrdered By: Cathi Miranda on 02-18-2024 Barbiturates Screen Ql (U) Negative Negative [facility] Benzodiazepines Screen Ql (U )Ordered By: Cathi Miranda on 02-18-2024 Benzodiazepines Ql (U) Negative Negative [facility] Benzoylecgonine [Presence] i n Urine by Screen methodOrdered By: Cathi Miranda on 02-18-2024 Benzoylecgonine Screen Ql (U) Negative Negative [facility] Cannabinoids [Presence] in U rine by Screen methodOrdered By: Cathi Miranda on 02-18-2024 Cannabinoids Screen Ql (U) Positive High Negative [facility] Comment on above: These are unconfirme d results and should not be used for legal purposes. Drug Cut-Off Concentration: AMPH 1000 ng/mL ZUNILDA 200 ng/mL SHIVANI 200 ng/mL COCM 300 ng/mL OP 300 ng/mL PCP 25 ng/mL THC 20 ng/mL Drug Screen,Urineon 02-18-20 Amphetamine Screen,Urine Negative Normal Negative [facility] Comment on above: Performed By: #### U RDS #### [address] Barbiturate Screen,Urine Negative Normal Negative [facility] Comment on above: Performed By: #### U RDS #### [facility] [address] [place] [address] [place] Benzodiazepines Screen,Urine Negative Normal Negative [facility] Comment on above: Performed By: #### U RDS #### [address] Cannabinoid Screen,Urine Positive High Negative [facility] Comment on above: Result Comment: Thes e are unconfirmed results and should not be used for legal purposes. Drug Cut-Off Concentration: AMPH 1000 ng/mL ZUNILDA 200 ng/mL SHIVANI 200 ng/mL COCM 300 ng/mL OP 300 ng/mL PCP 25 ng/mL THC 20 ng/mL PERFORMED BY: [place] [address] PATHOLOGIST GEODETIC TECHNICIAN CATY DELCID M.D. Performed By: #### U RDS #### [address] Cocaine Screen,Urine Negative Normal Negative [facility] Comment on above: Performed By: #### U RDS #### [address] Opiate Screen,Urine Negative Normal Negative [facility] Comment on above: Performed By: #### U RDS #### [address] Phencyclidine Screen,Urine Negative Normal Negative [facility] Comment on above: Performed By: #### U RDS #### [address] Opiates [Presence] in Urine by Screen methodOrdered By: Cathi Miranda on 02-18-2024 Opiates Screen Ql (U) Negative Negative [facility] Pathology Request for Lab Co rpon 02-18-2024 Pathology Request for Lab [place] Normal [facility] Comment on above: Order Comment: PATHO LOGY GI SPECIMEN Result Comment: See report. Scanned copy available in EMR. PERFORMED BY: [place] [address] PATHOLOGIST GEODETIC TECHNICIAN CATY DELCID M.D. Performed By: #### P ATH TO [facility] #### [place] [address] [place] Phencyclidine Screen Ql (U)O rdered By: Cathi Miranda on 02-18-2024 Phencyclidine Ql (U) Negative Negative [facility] Bacteria identified Cx Nom ( U)on 12-27-2023 Appearance (U) Adequate [facility] Internal identifier for Provider [id number] [facility] Specimen source Nom (Unsp spec) URINE, CLEAN CATCH [facility] Healthcare STATUS FINAL [facility] Performing Organizat ion Information Site ID: QPT Name: [facility] Address: [facility] [place] , [address] [place] [id number] Director: Jose Luis Lam MD [facility] Laboratory - Microbiology an d Antimicrobial susceptibilityon 12-27-2023 Bacteria identified Cx Nom (U) SEE NOTE [facility] Comment on above: Mixed genital zaid isolated. These superficial bacteria are not indicative of a urinary tract infection. No further organism identification is warranted on this specimen. If clinically indicated, recollect clean-catch, mid-stream urine and transfer immediately to Urine Culture Transport Tube. Urinalysis macro (dipstick) panel (U)on 12-25-2023 Bilirubin, UA Negative Negative - 4(70) +++ mg/dL [facility] Blood, UA Positive Negative - 50 Alhaji/mcL [facility] Clarity, UA Clear [facility] Color, UA Yellow [facility] Glucose, UA Negative Negative - 1999(110) ++++ mg/dL [facility] Interpretation and review of laboratory results Abnormal [facility] Ketones, UA Negative Negative - 160(16) ++++ mg/dL [facility] Leukocytes, UA Moderate Negative - 500+++ Mc/mcL [facility] Nitrite, UA Negative Negative - Positive [facility] pH, UA 6.0 5 - 9 [facility] Protein, UA Positive Negative - 1999(20) ++++ mg/dL [facility] Spec Grav, UA 1.015 1 - 1.03 [facility] Urobilinogen, UA 0.2 0.2 - 12 mg/dL [facility] Alanine aminotransferase [En zymatic activity/volume] in Serum or PlasmaOrdered By: Estela Varma on 06-25-2023 ALT [Catalytic activity/Vol] 14 U/L 7-52 [facility] Albumin [Mass/volume] in Ser um or Plasma by Bromocresol green (BCG) dye binding methoOrdered By: Estela Varma on 06-25-2023 Albumin BCG dye [Mass/Vol] 3.9 g/dL 3.5-5.7 [facility] Alkaline phosphatase [Enzyma tic activity/volume] in Serum or PlasmaOrdered By: Estela Varma on 06-25-2023 ALP [Catalytic activity/Vol] 126 U/L 34-104 [facility] Amylase [Enzymatic activity/ volume] in Serum or PlasmaOrdered By: Estela Varma on 06-25-2023 Amylase [Catalytic activity/Vol] 52 U/L 29-103 [facility] Aspartate aminotransferase [ Enzymatic activity/volume] in Serum or PlasmaOrdered By: Estela Varma on 06-25-2023 AST [Catalytic activity/Vol] 30 U/L 13-39 [facility] Basophils Auto (Bld) [#/Vol] Ordered By: Estela Varma on 06-25-2023 Basophils (Bld) [#/Vol] 0.1 10*3/uL 0.0-0.2 [facility] Basophils/100 WBC Auto (Bld) Ordered By: Estela Varma on 06-25-2023 Basophils/100 WBC (Bld) 1.3 % . [facility] Bilirubin.total [Mass/volume ] in Serum or PlasmaOrdered By: Estela Varma on 06-25-2023 Bilirubin [Mass/Vol] 1.0 mg/dL 0.3-1.0 [facility] CARCINOEMBRYONIC ANTIGENon 0 06-25-2023 Interpretation and review of laboratory results Abnormal [facility] CBC W Auto Differential pane l (Bld)on 06-25-2023 Basophils (Bld) [#/Vol] 0.1 10*3/uL 0.0 - 0.2 10*3/uL [facility] Basophils/100 WBC Manual cnt (Syn fld) 1.3 % . [facility] Eosinophils (Bld) [#/Vol] 0.2 10*3/uL 0.0 - 0.45 10*3/uL [facility] Eosinophils/100 WBC Manual cnt (Syn fld) 2.5 % . [facility] Erythrocyte distribution width (RBC) [Ratio] 15.5 % High 12.0 - 14.8 % [facility] Hematocrit (Bld) [Volume fraction] 40.7 % 38.8 - 50.0 % [facility] Hemoglobin (Bld) [Mass/Vol] 13.7 g/dL 13.0 - 17.0 g/dL [facility] Interpretation and review of laboratory results Abnormal [facility] Lymphocytes (Bld) [#/Vol] 0.8 10*3/uL Low 1.00 - 4.8 10*3/uL [facility] Lymphocytes/100 WBC Manual cnt (Syn fld) 9.3 % . [facility] MCH (RBC) [Entitic mass] 32.9 pg 27.5 - 35.2 pg [facility] MCHC (RBC) [Mass/Vol] 33.7 g/dL 32.5 - 35.6 g/dL [facility] MCV (RBC) [Entitic vol] 97.6 fL 83.5 - 101 fL [facility] Monocytes (Bld) [#/Vol] 0.7 10*3/uL 0.0 - 0.8 10*3/uL [facility] Monocytes+Macrophages /100 WBC Manual cnt (Syn fld) 8.7 % . [facility] Neutrophils (Bld) [#/Vol] 6.5 10*3/uL 1.8 - 7.7 10*3/uL [facility] Neutrophils/100 WBC Manual cnt (Syn fld) 78.2 % . [facility] NRBC 0.2 /100{WBC} 0 - 0.5 /100{WBC} [facility] Platelet mean volume (Bld) [Entitic vol] 7.4 fL 6.6 - 10.1 fL [facility] Platelets (Bld) [#/Vol] 196 10*3/uL 150 - 450 10*3/uL [facility] RBC LM.HPF (Urine sed) [#/Area] 4.17 /[HPF] 3.90 - 5.60 [facility] WBC (Bld) [#/Vol] 8.4 10*3/uL 4.1 - 10.5 10*3/uL [facility] WBC LM.HPF (Urine sed) [#/Area] 8.4 10*3/uL 4.1 - 10.5 10*3/uL [facility] Calcium [Mass/volume] in Ser um or PlasmaOrdered By: Estela Varma on 06-25-2023 Calcium [Mass/Vol] 8.7 mg/dL 8.6-10.3 [facility] Carbon dioxide, total [Moles /volume] in Serum or PlasmaOrdered By: Estela Varma on 06-25-2023 CO2 [Moles/Vol] 23.2 mmol/L 21.0-31.0 [facility] Chloride [Moles/volume] in S coral or PlasmaOrdered By: Estela Varma on 06-25-2023 Chloride [Moles/Vol] 96 mmol/L 98-107 [facility] Creatinine [Mass/volume] in Serum or PlasmaOrdered By: Estela Varma on 06-25-2023 Creatinine [Mass/Vol] 0.70 mg/dL 0.70-1.30 [facility] Eosinophils Auto (Bld) [#/Vo l]Ordered By: Estela Varma on 06-25-2023 Eosinophils (Bld) [#/Vol] 0.2 10*3/uL 0.0-0.45 [facility] Eosinophils/100 WBC Auto (Bl d)Ordered By: Estela Varma on 06-25-2023 Eosinophils/100 WBC (Bld) 2.5 % . [facility] Erythrocyte distribution wid th Auto (RBC) [Ratio]Ordered By: Estela Varma on 06-25-2023 Erythrocyte distribution width (RBC) [Ratio] 15.5 % 12.0-14.8 [facility] Ferritin [Mass/volume] in Se rum or PlasmaOrdered By: Estela Varma on 06-25-2023 Ferritin [Mass/Vol] 207.7 ng/mL 23.9-336.2 [facility] Folate [Mass/volume] in Seru m or PlasmaOrdered By: Estela Varma on 06-25-2023 Folate [Mass/Vol] 9.6 ng/mL >5.9 [facility] Comment on above: Folate reference ran ge: >5.9 ng/mlThe WHO technical consultation on folate and vitamin [id number] has determined that folate concentrations lessthan 4 ng/ml are considered deficient. GLUCOSE POCT GLUCOMETERSon 0 06-25-2023 Glucose [Mass/Vol] 97 mg/dL [facility] Comment on above: Random Glucose Refer ence Range is dependent on time and content of last meal. Glucose of more than 200 mg/dL in a nonstressed, ambulatory subject supports the diagnosis of Diabetes Mellitus. [facility] Globulin Calc (S) [Mass/Vol] Ordered By: Estela Varma on 06-25-2023 Globulin (S) [Mass/Vol] 3.0 g/dL [facility] Glucose Glucometer (BldC) [M ass/Vol]Ordered By: Estela Varma on 06-25-2023 Glucose [Mass/Vol] 97 mg/dL [facility] Comment on above: Random Glucose Refer ence Range is dependent on time and content of last meal. Glucose of more than 200 mg/dL in a nonstressed, ambulatory subject supports the diagnosis of Diabetes Mellitus. Glucose [Mass/volume] in Ser um or PlasmaOrdered By: Estela Varma on 06-25-2023 Glucose [Mass/Vol] 89 mg/dL 70-100 [facility] Comment on above: ADA recommended refe rence rangeRandom Glucose Reference Range is dependent on time and content of last meal. Glucose of more than 200 mg/dL in a nonstressed, ambulatory subject supports the diagnosis of Diabetes Mellitus. Hematocrit Auto (Bld) [Volum e fraction]Ordered By: Estela Varma on 06-25-2023 Hematocrit (Bld) [Volume fraction] 40.7 % 38.8-50.0 [facility] Hemoglobin [Mass/volume] in BloodOrdered By: Estela Varma on 06-25-2023 Hemoglobin (Bld) [Mass/Vol] 13.7 g/dL 13.0-17.0 [facility] Iron [Mass/volume] in Serum or PlasmaOrdered By: Estela Varma on 06-25-2023 Iron [Mass/Vol] 159 ug/dL 50-212 [facility] Iron binding capacity [Mass/ volume] in Serum or PlasmaOrdered By: Estela Varma on 06-25-2023 Iron binding capacity [Mass/Vol] 242 ug/dL 255-450 [facility] Iron saturation [Mass Fracti on] in Serum or PlasmaOrdered By: Estela Varma on 06-25-2023 Iron saturation [Mass fraction] 65.7 % 20-50 [facility] Leukocytes [#/volume] correc chris for nucleated erythrocytes in Blood by Automated counOrdered By: Estela Varma on 06-25-2023 WBC corrected for nucl RBC Auto (Bld) [#/Vol] 8.4 10*3/uL 4.1-10.5 [facility] Lipase [Enzymatic activity/v olume] in Serum or PlasmaOrdered By: Estela Varma on 06-25-2023 Lipase [Catalytic activity/Vol] 36.0 U/L 11.0-82.0 [facility] Lymphocytes Auto (Bld) [#/Vo l]Ordered By: Estela Varma on 06-25-2023 Lymphocytes (Bld) [#/Vol] 0.8 10*3/uL 1.00-4.8 [facility] Lymphocytes/100 WBC Auto (Bl d)Ordered By: Estela Varma on 06-25-2023 Lymphocytes/100 WBC (Bld) 9.3 % . [facility] MCH Auto (RBC) [Entitic mass ]Ordered By: Estela Varma on 06-25-2023 MCH (RBC) [Entitic mass] 32.9 pg 27.5-35.2 [facility] MCHC Auto (RBC) [Mass/Vol]Or dered By: Estela Varma on 06-25-2023 MCHC (RBC) [Mass/Vol] 33.7 g/dL 32.5-35.6 [facility] MCV Auto (RBC) [Entitic vol] Ordered By: Estela Varma on 06-25-2023 MCV (RBC) [Entitic vol] 97.6 fL 83.5-101 [facility] Monocytes Auto (Bld) [#/Vol] Ordered By: Estela Varma on 06-25-2023 Monocytes (Bld) [#/Vol] 0.7 10*3/uL 0.0-0.8 [facility] Monocytes/100 WBC Auto (Bld) Ordered By: Estela Varma on 02-12-2024 Monocytes/100 WBC (Bld) 8.7 % . [facility] Neutrophils Auto (Bld) [#/Vo l]Ordered By: Estela Varma on 06-25-2023 Neutrophils (Bld) [#/Vol] 6.5 10*3/uL 1.8-7.7 [facility] Neutrophils/100 WBC Auto (Bl d)Ordered By: Estela Varma on 06-25-2023 Neutrophils/100 WBC (Bld) 78.2 % . [facility] No Panel InformationOrdered By: Estela Varma on 06-25-2023 Estimated GFR (CKD-EPI) > 60.0 mL/Min [facility] Creatinine Clearance (Chem 108.93 [facility] Nucleated erythrocytes [Pres ence] in Blood by Automated countOrdered By: Estela Varma on 06-25-2023 Nucleated RBC Auto Ql (Bld) 0.2 /100{WBC} 0-0.5 [facility] Platelet mean volume Auto (B ld) [Entitic vol]Ordered By: Estela Varma on 06-25-2023 Platelet mean volume (Bld) [Entitic vol] 7.4 fL 6.6-10.1 [facility] Platelets Auto (Bld) [#/Vol] Ordered By: Estela Varma on 06-25-2023 Platelets (Bld) [#/Vol] 196 10*3/uL 150-450 [facility] Potassium [Moles/volume] in Serum or PlasmaOrdered By: Estela Varma on 06-25-2023 Potassium [Moles/Vol] 4.2 mmol/L 3.5-5.1 [facility] Protein [Mass/volume] in Ser um or PlasmaOrdered By: Estela Varma on 06-25-2023 Protein [Mass/Vol] 6.9 g/dL 6.4-8.9 [facility] RBC Auto (Bld) [#/Vol]Ordere d By: Estela Varma on 06-25-2023 RBC (Bld) [#/Vol] 4.17 10*6/uL 3.90-5.60 [facility] Serum or plasma albumin/glob ulin mass ratioOrdered By: Estela Varma on 06-25-2023 Albumin/Globulin [Mass ratio] 1.3 {ratio} [facility] Serum or plasma anion gap de terminationOrdered By: Estela Varma on 06-25-2023 Anion gap [Moles/Vol] 11.0 mmol/L 6.0-15.0 [facility] Serum or plasma carcinoembry onic antigen measurement (mass/volume)Ordered By: Estela Varma on 06-25-2023 Carcinoembryonic Ag [Mass/Vol] 9.4 ng/mL 0.0-3.0 [facility] Comment on above: Serial tumor marker results determined by assays using different manufacturers or methods may not be comparable.[facility] warp tier and method:[employer] DXI, 2 SITE IMMUNOENZYMATIC SANDWICH ASSAY. Sodium [Moles/volume] in Ser um or PlasmaOrdered By: Estela Varma on 06-25-2023 Sodium [Moles/Vol] 126 mmol/L 136-145 [facility] Thyrotropin [Units/volume] i n Serum or PlasmaOrdered By: Estela Varma on 06-25-2023 TSH Qn 9.92 m[IU]/L 0.45-5.33 [facility] Thyroxine (T4) free [Mass/vo lume] in Serum or PlasmaOrdered By: Estela Varma on 06-25-2023 Free T4 [Mass/Vol] 0.71 ng/dL 0.61-1.12 [facility] Transferrin [Mass/volume] in Serum or PlasmaOrdered By: Estela Varma on 06-25-2023 Transferrin [Mass/Vol] 173 mg/dL 203-362 [facility] Urea nitrogen [Mass/volume] in Serum or PlasmaOrdered By: Estela Varma on 06-25-2023 Urea nitrogen [Mass/Vol] 5 mg/dL 7-25 [facility] Vitamin B12 ser/plasOrdered By: Estela Varma on 06-25-2023 Cobalamin (Vitamin B12) [Mass/Vol] 309 pg/mL 180-914 [facility] WBC Auto (Bld) [#/Vol]Ordere d By: Estela Varma on 06-25-2023 WBC (Bld) [#/Vol] 8.4 10*3/uL 4.1-10.5 [facility] Serum or plasma methylmalona te measurement (moles/volume)Ordered By: Estela Varma on 03-30-2023 Methylmalonate [Moles/Vol] 129 nmol/L 0-378 [facility] Comment on above: This test was develo ped and its performance characteristicsdetermined by [facility]. It has not been cleared orapproved by the Food and Drug Administration.Performed at: [facility] [address] [id number] Director: Loc De Jesus MD, Phone: [phone] METHYLMALONIC ACID AND HOMOC YSTEINEon 03-29-2023 [facility] Alanine aminotransferase [En zymatic activity/volume] in Serum or PlasmaOrdered By: Estela Varma on 12-22-2022 ALT [Catalytic activity/Vol] 13 U/L 7-52 [facility] Albumin [Mass/volume] in Ser um or Plasma by Bromocresol green (BCG) dye binding methoOrdered By: Estela Varma on 12-22-2022 Albumin BCG dye [Mass/Vol] 3.7 g/dL 3.5-5.7 [facility] Alkaline phosphatase [Enzyma tic activity/volume] in Serum or PlasmaOrdered By: Estela Varma on 12-22-2022 ALP [Catalytic activity/Vol] 122 U/L 34-104 [facility] Aspartate aminotransferase [ Enzymatic activity/volume] in Serum or PlasmaOrdered By: Estela Varma on 12-22-2022 AST [Catalytic activity/Vol] 17 U/L 13-39 [facility] Basophils Auto (Bld) [#/Vol] Ordered By: Estela Varma on 12-22-2022 Basophils (Bld) [#/Vol] 0.1 10*3/uL 0.0-0.2 [facility] Basophils/100 WBC Auto (Bld) Ordered By: Estela Varma on 12-22-2022 Basophils/100 WBC (Bld) 1.3 % . [facility] Bilirubin.total [Mass/volume ] in Serum or PlasmaOrdered By: Estela Varma on 12-22-2022 Bilirubin [Mass/Vol] 0.5 mg/dL 0.3-1.0 [facility] Calcium [Mass/volume] in Ser um or PlasmaOrdered By: Estela Varma on 12-22-2022 Calcium [Mass/Vol] 8.0 mg/dL 8.6-10.3 [facility] Carbon dioxide, total [Moles /volume] in Serum or PlasmaOrdered By: Estela Varma on 12-22-2022 CO2 [Moles/Vol] 23.2 mmol/L 21.0-31.0 [facility] Chloride [Moles/volume] in S coral or PlasmaOrdered By: Estela Varma on 12-22-2022 Chloride [Moles/Vol] 100 mmol/L 98-107 [facility] Creatinine [Mass/volume] in Serum or PlasmaOrdered By: Estela Varma on 12-22-2022 Creatinine [Mass/Vol] 0.69 mg/dL 0.70-1.30 [facility] Eosinophils Auto (Bld) [#/Vo l]Ordered By: Estela Varma on 12-22-2022 Eosinophils (Bld) [#/Vol] 0.3 10*3/uL 0.0-0.45 [facility] Eosinophils/100 WBC Auto (Bl d)Ordered By: Estela Varma on 12-22-2022 Eosinophils/100 WBC (Bld) 5.0 % . [facility] Erythrocyte distribution wid th Auto (RBC) [Ratio]Ordered By: Estela Varma on 12-22-2022 Erythrocyte distribution width (RBC) [Ratio] 16.0 % 12.0-14.8 [facility] Globulin Calc (S) [Mass/Vol] Ordered By: Estela Varma on 12-22-2022 Globulin (S) [Mass/Vol] 2.3 g/dL [facility] Glucose Glucometer (BldC) [M ass/Vol]Ordered By: Estela Varma on 12-22-2022 Glucose [Mass/Vol] 71 mg/dL [facility] Comment on above: Random Glucose Refer ence Range is dependent on time and content of last meal. Glucose of more than 200 mg/dL in a nonstressed, ambulatory subject supports the diagnosis of Diabetes Mellitus. Glucose [Mass/volume] in Ser um or PlasmaOrdered By: Estela Varma on 12-22-2022 Glucose [Mass/Vol] 65 mg/dL 70-100 [facility] Comment on above: ADA recommended refe rence rangeRandom Glucose Reference Range is dependent on time and content of last meal. Glucose of more than 200 mg/dL in a nonstressed, ambulatory subject supports the diagnosis of Diabetes Mellitus. Hematocrit Auto (Bld) [Volum e fraction]Ordered By: Estela Varma on 12-22-2022 Hematocrit (Bld) [Volume fraction] 39.6 % 38.8-50.0 [facility] Hemoglobin [Mass/volume] in BloodOrdered By: Estela Varma on 12-22-2022 Hemoglobin (Bld) [Mass/Vol] 13.3 g/dL 13.0-17.0 [facility] Leukocytes [#/volume] correc chris for nucleated erythrocytes in Blood by Automated counOrdered By: Estela Varma on 12-22-2022 WBC corrected for nucl RBC Auto (Bld) [#/Vol] 6.0 10*3/uL 4.1-10.5 [facility] Lymphocytes Auto (Bld) [#/Vo l]Ordered By: Estela Varma on 12-22-2022 Lymphocytes (Bld) [#/Vol] 0.9 10*3/uL 1.00-4.8 [facility] Lymphocytes/100 WBC Auto (Bl d)Ordered By: Estela Varma on 12-22-2022 Lymphocytes/100 WBC (Bld) 15.7 % . [facility] MCH Auto (RBC) [Entitic mass ]Ordered By: Estela Varma on 12-22-2022 MCH (RBC) [Entitic mass] 31.9 pg 27.5-35.2 [facility] MCHC Auto (RBC) [Mass/Vol]Or dered By: Estela Varma on 12-22-2022 MCHC (RBC) [Mass/Vol] 33.5 g/dL 32.5-35.6 [facility] MCV Auto (RBC) [Entitic vol] Ordered By: Estela Varma on 12-22-2022 MCV (RBC) [Entitic vol] 95.0 fL 83.5-101 [facility] Monocytes Auto (Bld) [#/Vol] Ordered By: Estela Varma on 12-22-2022 Monocytes (Bld) [#/Vol] 0.5 10*3/uL 0.0-0.8 [facility] Monocytes/100 WBC Auto (Bld) Ordered By: Estela Varma on 12-22-2022 Monocytes/100 WBC (Bld) 7.8 % . [facility] Neutrophils Auto (Bld) [#/Vo l]Ordered By: Estela Varma on 12-22-2022 Neutrophils (Bld) [#/Vol] 4.2 10*3/uL 1.8-7.7 [facility] Neutrophils/100 WBC Auto (Bl d)Ordered By: Estela Varma on 12-22-2022 Neutrophils/100 WBC (Bld) 70.2 % . [facility] No Panel InformationOrdered By: Estela Varma on 12-22-2022 Estimated GFR (CKD-EPI) > 60.0 mL/Min [facility] Creatinine Clearance (Chem 114.05 [facility] Nucleated erythrocytes [Pres ence] in Blood by Automated countOrdered By: Estela Varma on 12-22-2022 Nucleated RBC Auto Ql (Bld) 0.0 /100{WBC} 0-0.5 [facility] Platelet mean volume Auto (B ld) [Entitic vol]Ordered By: Estela Varma on 12-22-2022 Platelet mean volume (Bld) [Entitic vol] 6.9 fL 6.6-10.1 [facility] Platelets Auto (Bld) [#/Vol] Ordered By: Estela Varma on 12-22-2022 Platelets (Bld) [#/Vol] 177 10*3/uL 150-450 [facility] Potassium [Moles/volume] in Serum or PlasmaOrdered By: Estela Varma on 12-22-2022 Potassium [Moles/Vol] 4.2 mmol/L 3.5-5.1 [facility] Protein [Mass/volume] in Ser um or PlasmaOrdered By: Estela Varma on 12-22-2022 Protein [Mass/Vol] 6.0 g/dL 6.4-8.9 [facility] RBC Auto (Bld) [#/Vol]Ordere d By: Estela Varma on 12-22-2022 RBC (Bld) [#/Vol] 4.17 10*6/uL 3.90-5.60 [facility] Serum or plasma albumin/glob ulin mass ratioOrdered By: Estela Varma on 12-22-2022 Albumin/Globulin [Mass ratio] 1.6 {ratio} [facility] Serum or plasma anion gap de terminationOrdered By: Estela Varma on 12-22-2022 Anion gap [Moles/Vol] 8.0 mmol/L 6.0-15.0 [facility] Sodium [Moles/volume] in Ser um or PlasmaOrdered By: Estela Varma on 12-22-2022 Sodium [Moles/Vol] 127 mmol/L 136-145 [facility] Urea nitrogen [Mass/volume] in Serum or PlasmaOrdered By: Estela Varma on 12-22-2022 Urea nitrogen [Mass/Vol] 6 mg/dL 7-25 [facility] WBC Auto (Bld) [#/Vol]Ordere d By: Estela Varma on 12-22-2022 WBC (Bld) [#/Vol] 6.0 10*3/uL 4.1-10.5 [facility] Alanine aminotransferase [En zymatic activity/volume] in Serum or PlasmaOrdered By: Estela Varma on 10-26-2022 ALT [Catalytic activity/Vol] 12 U/L 752 [facility] Albumin [Mass/volume] in Ser um or Plasma by Bromocresol green (BCG) dye binding methoOrdered By: Estela Varma on 10-26-2022 Albumin BCG dye [Mass/Vol] 3.9 g/dL 3.5-5.7 [facility] Alkaline phosphatase [Enzyma tic activity/volume] in Serum or PlasmaOrdered By: Estela Varma on 10-26-2022 ALP [Catalytic activity/Vol] 140 U/L 34-104 [facility] Aspartate aminotransferase [ Enzymatic activity/volume] in Serum or PlasmaOrdered By: Estela Varma on 10-26-2022 AST [Catalytic activity/Vol] 16 U/L 13-39 [facility] Basophils Auto (Bld) [#/Vol] Ordered By: Estela Varma on 10-26-2022 Basophils (Bld) [#/Vol] 0.0 10*3/uL 0.0-0.2 [facility] Basophils/100 WBC Auto (Bld) Ordered By: Estela Varma on 10-26-2022 Basophils/100 WBC (Bld) 0.8 % . [facility] Bilirubin.total [Mass/volume ] in Serum or PlasmaOrdered By: Estela Varma on 10-26-2022 Bilirubin [Mass/Vol] 0.6 mg/dL 0.3-1.0 [facility] Calcium [Mass/volume] in Ser um or PlasmaOrdered By: Estela Varma on 10-26-2022 Calcium [Mass/Vol] 8.3 mg/dL 8.6-10.3 [facility] Carbon dioxide, total [Moles /volume] in Serum or PlasmaOrdered By: Estela Varma on 10-26-2022 CO2 [Moles/Vol] 23.5 mmol/L 21.0-31.0 [facility] Chloride [Moles/volume] in S coral or PlasmaOrdered By: Estela Varma on 10-26-2022 Chloride [Moles/Vol] 98 mmol/L 98-107 [facility] Creatinine [Mass/volume] in Serum or PlasmaOrdered By: Estela Varma on 10-26-2022 Creatinine [Mass/Vol] 0.67 mg/dL 0.70-1.30 [facility] Eosinophils Auto (Bld) [#/Vo l]Ordered By: Estela Varma on 10-26-2022 Eosinophils (Bld) [#/Vol] 0.1 10*3/uL 0.0-0.45 [facility] Eosinophils/100 WBC Auto (Bl d)Ordered By: Estela Varma on 10-26-2022 Eosinophils/100 WBC (Bld) 2.6 % . [facility] Erythrocyte distribution wid th Auto (RBC) [Ratio]Ordered By: Estela Varma on 10-26-2022 Erythrocyte distribution width (RBC) [Ratio] 15.0 % 12.0-14.8 [facility] Erythrocyte sedimentation ra te by Photometric methodOrdered By: Estela Varma on 10-26-2022 ESR Photometric method (Bld) [Velocity] 16 mm/hr 0-19 [facility] Ferritin [Mass/volume] in Se rum or PlasmaOrdered By: Estela Varma on 10-26-2022 Ferritin [Mass/Vol] 225.5 ng/mL 23.9-336.2 [facility] Folate [Mass/volume] in Seru m or PlasmaOrdered By: Estela Varma on 10-26-2022 Folate [Mass/Vol] 4.9 ng/mL >5.9 [facility] Comment on above: Folate reference ran ge: >5.9 ng/mlThe WHO technical consultation on folate and vitamin [id number] has determined that folate concentrations lessthan 4 ng/ml are considered deficient. Globulin Calc (S) [Mass/Vol] Ordered By: Estela Varma on 10-26-2022 Globulin (S) [Mass/Vol] 2.8 g/dL [facility] Glucose [Mass/volume] in Ser um or PlasmaOrdered By: Estela Varma on 10-26-2022 Glucose [Mass/Vol] 66 mg/dL 70-100 [facility] Comment on above: ADA recommended refe rence rangeRandom Glucose Reference Range is dependent on time and content of last meal. Glucose of more than 200 mg/dL in a nonstressed, ambulatory subject supports the diagnosis of Diabetes Mellitus. Hematocrit Auto (Bld) [Volum e fraction]Ordered By: Estela Varma on 10-26-2022 Hematocrit (Bld) [Volume fraction] 39.7 % 38.8-50.0 [facility] Hemoglobin [Mass/volume] in BloodOrdered By: Estela Varma on 10-26-2022 Hemoglobin (Bld) [Mass/Vol] 13.6 g/dL 13.0-17.0 [facility] Iron [Mass/volume] in Serum or PlasmaOrdered By: Estela Varma on 10-26-2022 Iron [Mass/Vol] 103 ug/dL 50-212 [facility] Iron binding capacity [Mass/ volume] in Serum or PlasmaOrdered By: Estela Varma on 10-26-2022 Iron binding capacity [Mass/Vol] 269 ug/dL 255-450 [facility] Iron saturation [Mass Fracti on] in Serum or PlasmaOrdered By: Estela Varma on 10-26-2022 Iron saturation [Mass fraction] 38.3 % 20-50 [facility] Leukocytes [#/volume] correc chris for nucleated erythrocytes in Blood by Automated counOrdered By: Estela Varma on 10-26-2022 WBC corrected for nucl RBC Auto (Bld) [#/Vol] 5.8 10*3/uL 4.1-10.5 [facility] Lymphocytes Auto (Bld) [#/Vo l]Ordered By: Estela Varma on 10-26-2022 Lymphocytes (Bld) [#/Vol] 0.9 10*3/uL 1.00-4.8 [facility] Lymphocytes/100 WBC Auto (Bl d)Ordered By: Estela Varma on 10-26-2022 Lymphocytes/100 WBC (Bld) 15.0 % . [facility] MCH Auto (RBC) [Entitic mass ]Ordered By: Estela Varma on 10-26-2022 MCH (RBC) [Entitic mass] 32.6 pg 27.5-35.2 [facility] MCHC Auto (RBC) [Mass/Vol]Or dered By: Estela Varma on 10-26-2022 MCHC (RBC) [Mass/Vol] 34.2 g/dL 32.5-35.6 [facility] MCV Auto (RBC) [Entitic vol] Ordered By: Estela Varma on 10-26-2022 MCV (RBC) [Entitic vol] 95.2 fL 83.5-101 [facility] Monocytes Auto (Bld) [#/Vol] Ordered By: Estela Varma on 10-26-2022 Monocytes (Bld) [#/Vol] 0.7 10*3/uL 0.0-0.8 [facility] Monocytes/100 WBC Auto (Bld) Ordered By: Estela Varma on 10-26-2022 Monocytes/100 WBC (Bld) 12.1 % . [facility] Neutrophils Auto (Bld) [#/Vo l]Ordered By: Estela Varma on 10-26-2022 Neutrophils (Bld) [#/Vol] 4.1 10*3/uL 1.8-7.7 [facility] Neutrophils/100 WBC Auto (Bl d)Ordered By: Estela Varma on 10-26-2022 Neutrophils/100 WBC (Bld) 69.5 % . [facility] No Panel InformationOrdered By: Estela Varma on 10-26-2022 Estimated GFR (CKD-EPI) > 60.0 mL/Min [facility] Creatinine Clearance (Chem 121.12 [facility] Nucleated erythrocytes [Pres ence] in Blood by Automated countOrdered By: Estela Varma on 10-26-2022 Nucleated RBC Auto Ql (Bld) 0.2 /100{WBC} 0-0.5 [facility] Platelet mean volume Auto (B ld) [Entitic vol]Ordered By: Estela Varma on 10-26-2022 Platelet mean volume (Bld) [Entitic vol] 6.7 fL 6.6-10.1 [facility] Platelets Auto (Bld) [#/Vol] Ordered By: Estela Varma on 10-26-2022 Platelets (Bld) [#/Vol] 227 10*3/uL 150-450 [facility] Potassium [Moles/volume] in Serum or PlasmaOrdered By: Estela Varma on 10-26-2022 Potassium [Moles/Vol] 4.1 mmol/L 3.5-5.1 [facility] Protein [Mass/volume] in Ser um or PlasmaOrdered By: Estela Varma on 10-26-2022 Protein [Mass/Vol] 6.7 g/dL 6.4-8.9 [facility] RBC Auto (Bld) [#/Vol]Ordere d By: Estela Varma on 10-26-2022 RBC (Bld) [#/Vol] 4.17 10*6/uL 3.90-5.60 [facility] Serum or plasma albumin/glob ulin mass ratioOrdered By: Estela Varma on 10-26-2022 Albumin/Globulin [Mass ratio] 1.4 {ratio} [facility] Serum or plasma anion gap de terminationOrdered By: Estela Varma on 10-26-2022 Anion gap [Moles/Vol] 11.6 mmol/L 6.0-15.0 [facility] Serum or plasma carcinoembry onic antigen measurement (mass/volume)Ordered By: Estela Varma on 10-26-2022 Carcinoembryonic Ag [Mass/Vol] 8.0 ng/mL 0.0-3.0 [facility] Serum or plasma erythropoiet in (EPO) measurement (units/volume)Ordered By: Estela Varma on 10-26-2022 Erythropoietin (EPO) Qn 15.7 mIU/mL 2.6-18.5 [facility] Comment on above: [employer] D[employer]I 800 Immunoassay SystemValues obtained with different assay methods or kits cannotbe used interchangeably. Results cannot be interpreted asabsolute evidence of the presence or absence of malignantdisease.Performed at: [facility] [employer] [id number] Director: Fernando Brand PhD, Phone: [phone] Sodium [Moles/volume] in Ser um or PlasmaOrdered By: Estela Varma on 10-26-2022 Sodium [Moles/Vol] 129 mmol/L 136-145 [facility] Transferrin [Mass/volume] in Serum or PlasmaOrdered By: Estela Varma on 10-26-2022 Transferrin [Mass/Vol] 192 mg/dL 203-362 [facility] Urea nitrogen [Mass/volume] in Serum or PlasmaOrdered By: Estela Varma on 10-26-2022 Urea nitrogen [Mass/Vol] 8 mg/dL 7-25 [facility] Vitamin B12 ser/plasOrdered By: Estela Varma on 10-26-2022 Cobalamin (Vitamin B12) [Mass/Vol] 252 pg/mL 180-914 [facility] WBC Auto (Bld) [#/Vol]Ordere d By: Estela Varma on 10-26-2022 WBC (Bld) [#/Vol] 5.8 10*3/uL 4.1-10.5 [facility] CYTOLOGYon 10-03-2022 SENT TO REF LAB 10/04/2022 Normal [facility] Comment on above: Performed By: #### C YTO #### [facility] [address] [place] [address] Dr. Sushant Pradhan CULTURE STERILE BODY FLUIDon 09-11-2022 CULTURE STERILE BODY FLUID Culture Observations: NO GROWTH AT 72 HRS [facility] Comment on above: Performed By: #### C MREP #### [facility] [address] [place] [address] Dr. Sushant Pradhan CULTURE STERILE BODY FLUIDon 09-08-2022 CULTURE STERILE BODY FLUID Culture Observations: NO GROWTH AT 72 HOURS. [facility] Comment on above: Performed By: #### C MREP #### [facility] [address] [place] [address] Dr. Sushant Pradhan CULTURE STERILE BODY FLUIDon 09-04-2022 CULTURE STERILE BODY FLUID Culture Observations: NO GROWTH AT 72 HOURS. [facility] Comment on above: Performed By: #### C MREP #### [facility] [address] [place] [address] Dr. Sushant Pradhan XR RIBS LT PA [...] JESSE RAMOS Date: 2022-09-01 11:46 Normal [facility] CBC AUTO DIFFon 08-27-2022 BASO # 0.0 103/ul Normal 0.0-0.1 [facility] Comment on above: Performed By: #### C BC #### [facility] [address] [place] [address] Dr. Sushant Pradhan Basophils/100 WBC (Bld) 0.3 % Normal 0.2-2.0 [facility] Comment on above: Performed By: #### C BC #### [facility] [address] [address] [address] Sushant Pradhan EO # 0.2 103/ul Normal 0.0-0.7 [facility] Comment on above: Performed By: #### C BC #### [facility] [address] [address] [address] Sushant Pradhan Eosinophils/100 WBC (Bld) 3.0 % Normal 0.9-7.0 [facility] Comment on above: Performed By: #### C BC #### [facility] [address] [address] [address] Sushant Pradhan Erythrocyte distribution width (RBC) [Ratio] 16.5 % Critically high 11.0-15.0 [facility] Comment on above: Performed By: #### C BC #### [facility] [address] [place] [address] Dr. Sushant Pradhan Hematocrit (Bld) [Volume fraction] 38.4 % Critically low 42.0-54.0 [facility] Comment on above: Performed By: #### C BC #### [facility] [address] [place] [address] Dr. Sushant Pradhan Hemoglobin (Bld) [Mass/Vol] 13.9 g/dL Critically low 14.0-18.0 [facility] Comment on above: Performed By: #### C BC #### [facility] [address] [place] [address] Dr. Sushant Pradhan IG # 0.01 10e3/ul Normal 0.00-0.03 [facility] Comment on above: Performed By: #### C BC #### [facility] [address] [place] [address] Dr. Sushant Pradhan IG % 0.2 % Normal 0.0-0.5 [facility] Comment on above: Performed By: #### C BC #### [facility] [address] [place] [address] Dr. Sushant Pradhan LYMPH # 1.0 103/ul Critically low 1.2-3.8 [facility] [place] Comment on above: Performed By: #### C BC #### [facility] [address] [place] [address] Dr. Sushant Pradhan Lymphocytes/100 WBC (Bld) 15.8 % Critically low 20.5-60.0 [facility] Comment on above: Performed By: #### C BC #### [facility] [address] [place] [address] Dr. Sushant Pradhan MANUAL DIFF REQ NO Normal [facility] Comment on above: Performed By: #### C BC #### [facility] [address] [place] [address] Dr. Sushant Pradhan MCH (RBC) [Entitic mass] 32.8 pg Normal 25.9-34.0 [facility] Comment on above: Performed By: #### C BC #### [facility] [address] [place] [address] Dr. Sushant Pradhan MCHC (RBC) [Mass/Vol] 36.2 g/dL Critically high 29.9-35.2 [facility] Comment on above: Performed By: #### C BC #### [facility] [address] [address] [address] Sushant Pradhan MCV (RBC) [Entitic vol] 90.6 fL Normal 80.0-94.0 [facility] Comment on above: Performed By: #### C BC #### [facility] [address] [address] [address] Sushant Pradhan MONO # 0.8 103/ul Normal 0.3-0.8 [facility] Comment on above: Performed By: #### C BC #### [facility] [address] [address] [address] Sushant Pradhan Monocytes/100 WBC (Bld) 12.6 % Critically high 1.7-12.0 [facility] Comment on above: Performed By: #### C BC #### [facility] [address] [place] [address] Dr. Sushant Pradhan NEUT # 4.3 103/ul Normal 1.4-6.5 [facility] Comment on above: Performed By: #### C BC #### [facility] [address] [address] [address] Sushant Pradhan Neutrophils/100 WBC (Bld) 68.1 % Normal 43.0-75.0 [facility] Comment on above: Performed By: #### C BC #### [facility] [address] [place] [address] Dr. Sushant Pradhan Platelet mean volume (Bld) [Entitic vol] 9.0 fL Critically low 9.5-13.5 [facility] Comment on above: Performed By: #### C BC #### [facility] [address] [address] [address] Sushant Pradhan PLT 192 103/ul Normal 150-450 [facility] Comment on above: Performed By: #### C BC #### [facility] [address] [address] [address] Sushant Pradhan RBC 4.24 106/ul Critically low 4.70-6.10 [facility] Comment on above: Performed By: #### C BC #### [facility] [address] [place], [place] [address] Dr. Sushant Pradhan WBC 6.3 103/ul Normal 4.0-11.0 [facility] Comment on above: Performed By: #### C #### [facility] [address] [place], [place] [address] CHEST W CONon [...] by: MARCE SHAY Date: 2022-08-27 12:02 Normal [facility] LACTATE/LACTIC ACIDon 2022 Lactate [Moles/Vol] 1.8 mmol/L Normal 0.4-2.[address] [facility] Comment on above: Performed By: #### C MREP #### [facility] [address] [place] [address] Dr. Sushant Pradhan PROF 14(COMP METB)on 023 Albumin [Mass/Vol] 3.2 g/dL Critically low 3.4-5.0 [facility] Comment on above: Performed By: #### C BC #### [facility] [address] [place] [address] Dr. Sushant Pradhan Albumin/Globulin [Mass ratio] 0.7 {ratio} Normal [facility] Comment on above: Performed By: #### C BC #### [facility] [address] [place] [address] Dr. Sushant Pradhan ALP [Catalytic activity/Vol] 207 U/L Critically high 46-116 [facility] Comment on above: Performed By: #### C BC #### [facility] [address] [place] [address] Dr. Sushant Pradhan ALT [Catalytic activity/Vol] 22 U/L Normal 16-63 [facility] Comment on above: Performed By: #### C BC #### [facility] [address] [place] [address] Dr. Sushant Pradhan Anion gap [Moles/Vol] 11.9 mmol/L Normal [facility] Comment on above: Performed By: #### C BC #### [facility] [address] [address] [address] Sushant Pradhan AST [Catalytic activity/Vol] 23 U/L Normal 15-37 [facility] Comment on above: Performed By: #### C BC #### [facility] [address] [address] [address] Sushant Pradhan Bilirubin [Mass/Vol] 0.4 mg/dL Normal 0.2-1.0 [facility] Comment on above: Performed By: #### C BC #### [facility] [address] [place] [address] Dr. Sushant Pradhan Calcium [Mass/Vol] 9.2 mg/dL Normal 8.5-10.1 [facility] Comment on above: Performed By: #### C BC #### [facility] [address] [place] [address] Dr. Sushant Pradhan Chloride [Moles/Vol] 97 mmol/L Critically low 98-107 [facility] Comment on above: Performed By: #### C BC #### [facility] [address] [place] [address] Dr. Sushant Pradhan CO2 [Moles/Vol] 28.1 mmol/L Normal 21.0-32.0 [facility] Comment on above: Performed By: #### C BC #### [facility] [address] [place] [address] Dr. Sushant Pradhan Creatinine [Mass/Vol] 0.86 mg/dL Normal 0.70-1.30 [facility] Comment on above: Performed By: #### C BC #### [facility] [address] [place] [address] Dr. Sushant Pradhan EGFR-AF BRITISH >60 Normal >=60 [facility] Comment on above: Performed By: #### C BC #### [facility] [address] [place] [address] Dr. Sushant Pradhan EGFR-NON AF BRITISH >60 Normal >=60 [facility] Comment on above: Performed By: #### C BC #### [facility] [address] [place] [address] Dr. Sushant Pradhan Globulin (S) [Mass/Vol] 4.8 g/dL Normal [facility] Comment on above: Performed By: #### C BC #### [facility] [address] [place] [address] Dr. Sushant Pradhan Glucose [Mass/Vol] 104 mg/dL Normal 74-106 [facility] Comment on above: Performed By: #### C BC #### [facility] [address] [place] [address] Dr. Sushant Pradhan Potassium [Moles/Vol] 4.0 mmol/L Normal 3.5-5.1 [facility] Comment on above: Performed By: #### C BC #### [facility] [address] [place] [address] Dr. Sushant Pradhan Protein [Mass/Vol] 8.0 g/dL Normal 6.4-8.2 [facility] Comment on above: Performed By: #### C BC #### [facility] [address] [place] [address] Dr. Sushant Pradhan Sodium [Moles/Vol] 133 mmol/L Critically low 136-145 [facility] Comment on above: Performed By: #### C BC #### [facility] [address] [place] [address] Dr. Sushant Pradhan Urea nitrogen [Mass/Vol] 6.0 mg/dL Critically low 7.0-18.0 [facility] Comment on above: Performed By: #### C BC #### [facility] [address] [place] [address] Dr. Sushant Pradhan Urea nitrogen/Creatinine [Mass ratio] 7.0 mg/mg Normal [facility] Comment on above: Performed By: #### C BC #### [facility] [address] [place] [address] Dr. Sushant Pradhan TROPONIN, HIGH SENSITIVITYon 08-27-2022 HSTROP 5.6 pg/mL Normal 4.0-76.1 [facility] Comment on above: Result Comment: CUT- OFF POINTS HAVE BEEN ESTABLISHED BASED ON THE FOURTH UNIVERSAL DEFINITIONS OF MYOCARDIAL INFARCTION. THE UPPER REFERENCE LIMIT (URL) OF TROPONIN, DEFINED THE 99TH PERCENTILE OF cTnI DISTRIBUTION IN A REFERENCE POPULATION, HAS BEEN CONFIRMED THE DECISION THRESHOLD FOR WI DIAGNOSIS. Performed By: #### C BC #### [facility] [address] [place] [address] Dr. Sushant Pradhan HSTROP 5.8 pg/mL Normal 4.0-76.1 [facility] Comment on above: Result Comment: CUT- OFF POINTS HAVE BEEN ESTABLISHED BASED ON THE FOURTH UNIVERSAL DEFINITIONS OF MYOCARDIAL INFARCTION. THE UPPER REFERENCE LIMIT (URL) OF TROPONIN, DEFINED THE 99TH PERCENTILE OF cTnI DISTRIBUTION IN A REFERENCE POPULATION, HAS BEEN CONFIRMED THE DECISION THRESHOLD FOR WI DIAGNOSIS. Performed By: #### C BC #### [facility] [address] [place] [address] Dr. Sushant Pradhan CARDIAC SONIA ADMITon 023 CK [Catalytic activity/Vol] 68 U/L Normal 39-308 [facility] Comment on above: Performed By: #### C MREP #### [facility] [address] [place] [address] Dr. Sushant Pradhan CK.MB [Mass/Vol] 1.23 ng/mL Normal <=3.60 [facility] Comment on above: Performed By: #### C MREP #### [facility] [address] [place] [address] Dr. Sushant Pradhan HSTROP 7.1 pg/mL Normal 4.0-76.1 [facility] Comment on above: Result Comment: CUT- OFF POINTS HAVE BEEN ESTABLISHED BASED ON THE FOURTH UNIVERSAL DEFINITIONS OF MYOCARDIAL INFARCTION. THE UPPER REFERENCE LIMIT (URL) OF TROPONIN, DEFINED THE 99TH PERCENTILE OF cTnI DISTRIBUTION IN A REFERENCE POPULATION, HAS BEEN CONFIRMED THE DECISION THRESHOLD FOR [place] DIAGNOSIS. Performed By: #### C MREP #### [facility] [address] [place] [address] Dr. Sushant Pradhan DILAN 32 ng/mL Normal 16-96 [facility] Comment on above: Performed By: #### C MREP #### [facility] [address] [place] [address] Dr. Sushant Pradhan CBC AUTO DIFFon 06-18-2022 BASO # 0.0 103/ul Normal 0.0-0.1 [facility] Comment on above: Performed By: #### C BC #### [facility] [address] [place] [address] Dr. Sushant Pradhan Basophils/100 WBC (Bld) 0.5 % Normal 0.2-2.0 [facility] Comment on above: Performed By: #### C BC #### [facility] [address] [place] [address] Dr. Sushant Pradhan EO # 0.3 103/ul Normal 0.0-0.7 [facility] Comment on above: Performed By: #### C BC #### [facility] [address] [place] [address] Dr. Sushant Pradhan Eosinophils/100 WBC (Bld) 4.5 % Normal 0.9-7.0 [facility] Comment on above: Performed By: #### C BC #### [facility] [address] [place] [address] Dr. Sushant Pradhan Erythrocyte distribution width (RBC) [Ratio] 15.8 % Critically high 11.0-15.0 [facility] Comment on above: Performed By: #### C BC #### [facility] [address] [place] [address] Dr. Sushant Pradhan Hematocrit (Bld) [Volume fraction] 37.3 % Critically low 42.0-54.0 [facility] Comment on above: Performed By: #### C BC #### [facility] [address] [place] [address] Dr. Sushant Pradhan Hemoglobin (Bld) [Mass/Vol] 13.0 g/dL Critically low 14.0-18.0 [facility] Comment on above: Performed By: #### C BC #### [facility] [address] [place] [address] Dr. Sushant Pradhan IG # 0.02 10e3/ul Normal 0.00-0.03 [facility] Comment on above: Performed By: #### C BC #### [facility] [address] [place] [address] Dr. Sushant Pradhan IG % 0.3 % Normal 0.0-0.5 [facility] Comment on above: Performed By: #### C BC #### [facility] [address] [address] [address] Sushant Pradhan LYMPH # 0.8 103/ul Critically low 1.2-3.8 [facility] [place] Comment on above: Performed By: #### C BC #### [facility] [address] [address] [address] Sushant Pradhan Lymphocytes/100 WBC (Bld) 13.9 % Critically low 20.5-60.0 [facility] Comment on above: Performed By: #### C BC #### [facility] [address] [place] [address] Dr. Sushant Pradhan MANUAL DIFF REQ NO Normal [facility] Comment on above: Performed By: #### C BC #### [facility] [address] [place] [address] Dr. Sushant Pradhan MCH (RBC) [Entitic mass] 33.0 pg Normal 25.9-34.0 [facility] Comment on above: Performed By: #### C BC #### [facility] [address] [place] [address] Dr. Sushant Pradhan MCHC (RBC) [Mass/Vol] 34.9 g/dL Normal 29.9-35.2 [facility] Comment on above: Performed By: #### C BC #### [facility] [address] [place] [address] Dr. Sushant Pradhan MCV (RBC) [Entitic vol] 94.7 fL Critically high 80.0-94.0 [facility] Comment on above: Performed By: #### C BC #### [facility] [address] [address] [address] Sushant Pradhan MONO # 0.7 103/ul Normal 0.3-0.8 [facility] Comment on above: Performed By: #### C BC #### [facility] [address] [place] [address] Dr. Sushant Pradhan Monocytes/100 WBC (Bld) 12.5 % Critically high 1.7-12.0 [facility] Comment on above: Performed By: #### C BC #### [facility] [address] [address] [address] Sushant Pradhan NEUT # 4.0 103/ul Normal 1.4-6.5 [facility] Comment on above: Performed By: #### C BC #### [facility] [address] [address] [address] Sushant Pradhan Neutrophils/100 WBC (Bld) 68.3 % Normal 43.0-75.0 [facility] Comment on above: Performed By: #### C BC #### [facility] [address] [address] [address] Sushant Pradhan Platelet mean volume (Bld) [Entitic vol] 9.1 fL Critically low 9.5-13.5 [facility] Comment on above: Performed By: #### C BC #### [facility] [address] [address] [address] Sushant Pradhan PLT 175 103/ul Normal 150-450 [facility] Comment on above: Performed By: #### C BC #### [facility] [address] [address] [address] Sushant Pradhan RBC 3.94 106/ul Critically low 4.70-6.10 [facility] Comment on above: Performed By: #### C BC #### [facility] [address] [address] [address] Sushant Pradhan WBC 5.8 103/ul Normal 4.0-11.0 [facility] Comment on above: Performed By: #### C BC #### [facility] [address] [address] [address] Sushant Pradhan PROF 14(COMP METB)on 023 Albumin [Mass/Vol] 2.9 g/dL Critically low 3.4-5.0 [facility] Comment on above: Performed By: #### C MREP #### [facility] [address] [address] [address] Sushant Pradhan Albumin/Globulin [Mass ratio] 0.8 {ratio} Normal [facility] Comment on above: Performed By: #### C MREP #### [facility] [address] [address] [address] Sushant Pradhan ALP [Catalytic activity/Vol] 133 U/L Critically high 46-116 [facility] Comment on above: Performed By: #### C MREP #### [facility] [address] [address] [address] Sushant Pradhan ALT [Catalytic activity/Vol] 15 U/L Critically low 16-63 [facility] Comment on above: Performed By: #### C MREP #### [facility] [address] [address] [address] Sushant Pradhan Anion gap [Moles/Vol] 16.5 mmol/L Normal [facility] Comment on above: Performed By: #### C MREP #### [facility] [address] [address] [address] Sushant Pradhan AST [Catalytic activity/Vol] 15 U/L Normal 15-37 [facility] Comment on above: Performed By: #### C MREP #### [facility] [address] [address] [address] Sushant Pradhan Bilirubin [Mass/Vol] 0.4 mg/dL Normal 0.2-1.0 [facility] Comment on above: Performed By: #### C MREP #### [facility] [address] [address] [address] Sushant Pradhan Calcium [Mass/Vol] 8.6 mg/dL Normal 8.5-10.1 [facility] Comment on above: Performed By: #### C MREP #### [facility] [address] [address] [address] Sushant Pradhan Chloride [Moles/Vol] 97 mmol/L Critically low 98-107 [facility] Comment on above: Performed By: #### C MREP #### [facility] [address] [address] [address] Sushant Pradhan CO2 [Moles/Vol] 22.3 mmol/L Normal 21.0-32.0 [facility] Comment on above: Performed By: #### C MREP #### [facility] [address] [address] [address] Sushant Pradhan Creatinine [Mass/Vol] 0.61 mg/dL Critically low 0.70-1.30 [facility] Comment on above: Performed By: #### C MREP #### [facility] [address] [address] [address] Sushant Pradhan EGFR-AF BRITISH >60 Normal >=60 [facility] Comment on above: Performed By: #### C MREP #### [facility] [address] [address] [address] Sushant Pradhan EGFR-NON AF BRITISH >60 Normal >=60 [facility] Comment on above: Performed By: #### C MREP #### [facility] [address] [place] [address] Dr. Sushant Pradhan Globulin (S) [Mass/Vol] 3.8 g/dL Normal [facility] Comment on above: Performed By: #### C MREP #### [facility] [address] [place] [address] Dr. Sushant Pradhan Glucose [Mass/Vol] 79 mg/dL Normal 74-106 [facility] Comment on above: Performed By: #### C MREP #### [facility] [address] [place] [address] Dr. Sushant Pradhan Potassium [Moles/Vol] 3.8 mmol/L Normal 3.5-5.1 [facility] Comment on above: Performed By: #### C MREP #### [facility] [address] [address] [address] Sushant Pradhan Protein [Mass/Vol] 6.7 g/dL Normal 6.4-8.2 [facility] Comment on above: Performed By: #### C MREP #### [facility] [address] [place] [address] Dr. Sushant Pradhan Sodium [Moles/Vol] 132 mmol/L Critically low 136-145 [facility] Comment on above: Performed By: #### C MREP #### [facility] [address] [place], [place] [address] Dr. Sushant Pradhan Urea nitrogen [Mass/Vol] 5.0 mg/dL Critically low 7.0-18.0 [facility] Comment on above: Performed By: #### C MREP #### [facility] [address] [place], [place] [address] Dr. Sushant Pradhan Urea nitrogen/Creatinine [Mass ratio] 8.2 mg/mg Normal [facility] Comment on above: Performed By: #### C MREP #### [facility] [address] [place], [place] [address] Dr. Sushant Pradhan XR CHEST 1 Von [...] JESSE RAMOS Date: 2022-06-18 10:42 Normal [facility] Basophils Auto (Bld) [#/Vol] Ordered By: Jackie Fraga on 06-17-2022 Basophils (Bld) [#/Vol] 0.0 10*3/uL 0.0-0.2 [facility] Basophils/100 WBC Auto (Bld) Ordered By: Jackie Fraga on 06-17-2022 Basophils/100 WBC (Bld) 0.7 % . [facility] Creatinine and Glomerular fi ltration rate.predicted panel (S/P/Bld)Ordered By: Jackie Fraga on 06-17-2022 Creatinine [Mass/Vol] 0.91 mg/dL 0.64-1.27 [facility] Eosinophils Auto (Bld) [#/Vo l]Ordered By: Jackie Fraga on 06-17-2022 Eosinophils (Bld) [#/Vol] 0.2 10*3/uL 0.0-0.45 [facility] Eosinophils/100 WBC Auto (Bl d)Ordered By: Jackie Fraga on 06-17-2022 Eosinophils/100 WBC (Bld) 3.5 % . [facility] Erythrocyte distribution wid th Auto (RBC) [Ratio]Ordered By: Jackie Fraga on 06-17-2022 Erythrocyte distribution width (RBC) [Ratio] 15.8 % 12.0-14.8 [facility] Estimated glomerular filtrat ion rate (GFR) non- AmericanOrdered By: Jackie Fraga on 06-17-2022 GFR/1.73 sq M.predicted among non-blacks MDRD (S/P/Bld) [Vol rate/Area] > 60 mL/Min [facility] Hematocrit Auto (Bld) [Volum e fraction]Ordered By: Jackie Fraga on 06-17-2022 Hematocrit (Bld) [Volume fraction] 41.9 % 38.8-50.0 [facility] Hemoglobin [Mass/volume] in BloodOrdered By: Jackie Fraga on 06-17-2022 Hemoglobin (Bld) [Mass/Vol] 13.8 g/dL 13.0-17.0 [facility] Leukocytes [#/volume] correc chris for nucleated erythrocytes in Blood by Automated counOrdered By: Jackie Fraga on 06-17-2022 WBC corrected for nucl RBC Auto (Bld) [#/Vol] 6.1 10*3/uL 4.1-10.5 [facility] Lymphocytes Auto (Bld) [#/Vo l]Ordered By: Jackie Fraga on 06-17-2022 Lymphocytes (Bld) [#/Vol] 1.0 10*3/uL 1.00-4.8 [facility] Lymphocytes/100 WBC Auto (Bl d)Ordered By: Jackie Fraga on 06-17-2022 Lymphocytes/100 WBC (Bld) 16.6 % . [facility] MCH Auto (RBC) [Entitic mass ]Ordered By: Jackie Fraga on 06-17-2022 MCH (RBC) [Entitic mass] 32.9 pg 27.5-35.2 [facility] MCHC Auto (RBC) [Mass/Vol]Or dered By: Jackie Fraga on 06-17-2022 MCHC (RBC) [Mass/Vol] 33.1 g/dL 32.5-35.6 [facility] MCV Auto (RBC) [Entitic vol] Ordered By: Jackie Fraga on 06-17-2022 MCV (RBC) [Entitic vol] 99.4 fL 83.5-101 [facility] Monocytes Auto (Bld) [#/Vol] Ordered By: Jackie Fraga on 06-17-2022 Monocytes (Bld) [#/Vol] 0.8 10*3/uL 0.0-0.8 [facility] Monocytes/100 WBC Auto (Bld) Ordered By: Jackie Fraga on 06-17-2022 Monocytes/100 WBC (Bld) 13.3 % . [facility] Neutrophils Auto (Bld) [#/Vo l]Ordered By: Jackie Fraga on 06-17-2022 Neutrophils (Bld) [#/Vol] 4.0 10*3/uL 1.8-7.7 [facility] Neutrophils/100 WBC Auto (Bl d)Ordered By: Jackie Fraga on 06-17-2022 Neutrophils/100 WBC (Bld) 65.9 % . [facility] No Panel InformationOrdered By: Jackie Fraga on 06-17-2022 Estimated GFR () > 60 mL/Min [facility] Comment on above: GFR estimated refere nce range: According to KDOQI guidelines, <60 ml/min/1.73m2 is sufficient to diagnose a patient with chronic kidney disease. Pharmacy Creatinine Clearance (Chem 86.01 [facility] Nucleated erythrocytes [Pres ence] in Blood by Automated countOrdered By: Jackie Fraga on 06-17-2022 Nucleated RBC Auto Ql (Bld) 0.2 /100{WBC} 0-0.5 [facility] Platelet mean volume Auto (B ld) [Entitic vol]Ordered By: Jackie Fraga on 06-17-2022 Platelet mean volume (Bld) [Entitic vol] 7.7 fL 6.6-10.1 [facility] Platelets Auto (Bld) [#/Vol] Ordered By: Jackie Fraga on 06-17-2022 Platelets (Bld) [#/Vol] 185 10*3/uL 150-450 [facility] RBC Auto (Bld) [#/Vol]Ordere d By: Jackie Fraga on 06-17-2022 RBC (Bld) [#/Vol] 4.21 10*6/uL 3.90-5.60 [facility] Serum or plasma anion gap de terminationOrdered By: Jackie Fraga on 06-17-2022 Anion gap [Moles/Vol] 10.6 mmol/L 6.0-15.0 [facility] Serum or plasma calcium ledy urement (mass/volume)Ordered By: Jackie Fraga on 06-17-2022 Calcium [Mass/Vol] 8.6 mg/dL 8.2-10.2 [facility] Serum or plasma chloride carlyn surement (moles/volume)Ordered By: Jackie Fraga on 06-17-2022 Chloride [Moles/Vol] 99 mmol/L 95-114 [facility] Serum or plasma glucose ledy urement (mass/volume)Ordered By: Jackie Fraga on 06-17-2022 Glucose [Mass/Vol] 94 mg/dL 70-100 [facility] Comment on above: ADA recommended refe rence rangeRandom Glucose Reference Range is dependent on time and content of last meal. Glucose of more than 200 mg/dL in a nonstressed, ambulatory subject supports the diagnosis of Diabetes Mellitus. Serum or plasma potassium me asurement (moles/volume)Ordered By: Jackie Fraga on 06-17-2022 Potassium [Moles/Vol] 4.1 mmol/L 3.5-5.1 [facility] Serum or plasma sodium measu rement (moles/volume)Ordered By: Jackie Fraga on 06-17-2022 Sodium [Moles/Vol] 127 mmol/L 136-146 [facility] Serum or plasma total carbon dioxide measurement (moles/volume)Ordered By: Jackie Fraga on 06-17-2022 CO2 [Moles/Vol] 21.5 mmol/L 22.0-30.0 [facility] Serum or plasma urea nitroge n measurement (mass/volume)Ordered By: Jackie Fraga on 06-17-2022 Urea nitrogen [Mass/Vol] 10 mg/dL 9-23 [facility] TSH DL <= 0.005 mIU/L QnOrde red By: Jackie Fraga on 06-17-2022 TSH Qn 4.63 m[IU]/L 0.45-5.33 [facility] WBC Auto (Bld) [#/Vol]Ordere d By: Jackie Fraga on 06-17-2022 WBC (Bld) [#/Vol] 6.1 10*3/uL 4.1-10.5 [facility] Amphetamine Screen Ql (U)Ord ered By: Edward Hinds on 06-16-2022 Amphetamines Ql (U) Negative Negative [facility] Barbiturates [Presence] in U rineOrdered By: Edward Hinds on 06-16-2022 Barbiturates Ql (U) Negative Negative [facility] Benzodiazepines [Presence] i n UrineOrdered By: Edward Hinds on 06-16-2022 Benzodiazepines Ql (U) Negative Negative [facility] Cannabinoids [Presence] in U rine by Screen methodOrdered By: Edward Hinds on 06-16-2022 Cannabinoids Screen Ql (U) Positive Negative [facility] Comment on above: These are unconfirme d results and should not be used for legal purposes. Drug Cut-Off Concentration: AMPH 1000 ng/mL ZUNILDA 200 ng/mL SHIVANI 200 ng/mL COCM 300 ng/mL OP 300 ng/mL PCP 25 ng/mL THC 20 ng/mL Laboratory - Drug toxicology Ordered By: Edward Hinds on 06-16-2022 Opiates Ql (U) Negative Negative [facility] Phencyclidine Screen Ql (U)O rdered By: Edward Hinds on 06-16-2022 Phencyclidine Ql (U) Negative Negative [facility] Urine cocaine detectionOrder ed By: Edward Hinds on 06-16-2022 Cocaine Ql (U) Negative Negative [facility] Activated partial thrombopla stin time (aPTT) in platelet poor plasma by coagulation aOrdered By: Varghese Duval on 06-15-2022 aPTT Coag (PPP) [Time] 35.2 s 25.1-36.5 [facility] Basophils Auto (Bld) [#/Vol] Ordered By: Varghese Duval on 06-15-2022 Basophils (Bld) [#/Vol] 0.1 10*3/uL 0.0-0.2 [facility] Basophils/100 WBC Auto (Bld) Ordered By: Varghese Duval on 06-15-2022 Basophils/100 WBC (Bld) 1.0 % . [facility] Bilirubin Test strip Ql (U)O rdered By: Varghese Duval on 06-15-2022 Bilirubin Ql (U) Negative Negative [facility] Color Auto (U)Ordered By: Tanya Duval on 06-15-2022 Color (U) Yellow Yellow [facility] Creatinine and Glomerular fi ltration rate.predicted panel (S/P/Bld)Ordered By: Varghese Duval on 06-15-2022 Creatinine [Mass/Vol] 0.76 mg/dL 0.64-1.27 [facility] Eosinophils Auto (Bld) [#/Vo l]Ordered By: Varghese Duval on 06-15-2022 Eosinophils (Bld) [#/Vol] 0.3 10*3/uL 0.0-0.45 [facility] Eosinophils/100 WBC Auto (Bl d)Ordered By: Varghese Duval on 06-15-2022 Eosinophils/100 WBC (Bld) 4.9 % . [facility] Erythrocyte distribution wid th Auto (RBC) [Ratio]Ordered By: Varghese Duval on 06-15-2022 Erythrocyte distribution width (RBC) [Ratio] 15.9 % 12.0-14.8 [facility] Estimated glomerular filtrat ion rate (GFR) non- AmericanOrdered By: Varghese Duval on 06-15-2022 GFR/1.73 sq M.predicted among non-blacks MDRD (S/P/Bld) [Vol rate/Area] > 60 mL/Min [facility] Hematocrit Auto (Bld) [Volum e fraction]Ordered By: Varghese Duval on 06-15-2022 Hematocrit (Bld) [Volume fraction] 42.5 % 38.8-50.0 [facility] Hemoglobin [Mass/volume] in BloodOrdered By: Varghese Duval on 06-15-2022 Hemoglobin (Bld) [Mass/Vol] 14.3 g/dL 13.0-17.0 [facility] Ketones Auto test strip (U) [Mass/Vol]Ordered By: Varghese Duval on 06-15-2022 Ketones (U) [Mass/Vol] Negative Negative [facility] - CoagulationOrde red By: Varghese uDval on 06-15-2022 PT Coag (PPP) [Time] 10.7 s 9.0-12.9 [facility] Leukocytes [#/volume] correc chris for nucleated erythrocytes in Blood by Automated counOrdered By: Varghese Duval on 06-15-2022 WBC corrected for nucl RBC Auto (Bld) [#/Vol] 5.4 10*3/uL 4.1-10.5 [facility] Lymphocytes Auto (Bld) [#/Vo l]Ordered By: Varghese Duval on 06-15-2022 Lymphocytes (Bld) [#/Vol] 1.0 10*3/uL 1.00-4.8 [facility] Lymphocytes/100 WBC Auto (Bl d)Ordered By: Varghese Duval on 06-15-2022 Lymphocytes/100 WBC (Bld) 19.3 % . [facility] MCH Auto (RBC) [Entitic mass ]Ordered By: Varghese Duval on 06-15-2022 MCH (RBC) [Entitic mass] 33.2 pg 27.5-35.2 [facility] MCHC Auto (RBC) [Mass/Vol]Or dered By: Varghese Duval on 06-15-2022 MCHC (RBC) [Mass/Vol] 33.5 g/dL 32.5-35.6 [facility] MCV Auto (RBC) [Entitic vol] Ordered By: Varghese Duval on 06-15-2022 MCV (RBC) [Entitic vol] 98.9 fL 83.5-101 [facility] Monocytes Auto (Bld) [#/Vol] Ordered By: Varghese Duval on 06-15-2022 Monocytes (Bld) [#/Vol] 0.5 10*3/uL 0.0-0.8 [facility] Monocytes/100 WBC Auto (Bld) Ordered By: Varghese Duval on 06-15-2022 Monocytes/100 WBC (Bld) 8.8 % . [facility] Neutrophils Auto (Bld) [#/Vo l]Ordered By: Varghese Duval on 06-15-2022 Neutrophils (Bld) [#/Vol] 3.6 10*3/uL 1.8-7.7 [facility] Neutrophils/100 WBC Auto (Bl d)Ordered By: Varghese Duval on 06-15-2022 Neutrophils/100 WBC (Bld) 66.0 % . [facility] Nitrite Test strip Ql (U)Ord ered By: Varghese Duval on 06-15-2022 Nitrite Ql (U) Negative Negative [facility] No Panel InformationOrdered By: Varghese Duval on 06-15-2022 Estimated GFR () > 60 mL/Min [facility] Comment on above: GFR estimated refere nce range: According to KDOQI guidelines, <60 ml/min/1.73m2 is sufficient to diagnose a patient with chronic kidney disease. Pharmacy Creatinine Clearance (Chem N/A [facility] Nucleated erythrocytes [Pres ence] in Blood by Automated countOrdered By: Varghese Duval on 06-15-2022 Nucleated RBC Auto Ql (Bld) 0.2 /100{WBC} 0-0.5 [facility] Platelet mean volume Auto (B ld) [Entitic vol]Ordered By: Varghese Duval on 06-15-2022 Platelet mean volume (Bld) [Entitic vol] 7.4 fL 6.6-10.1 [facility] Platelet poor plasma interna tional normalized ratio (INR) by coagulation assay (relatOrdered By: Varghese Duval on 06-15-2022 INR Coag (PPP) [Relative time] 0.9 {INR} [facility] Comment on above: INR Therapeutic Rang e [...] 06-15-2022 Platelets (Bld) [#/Vol] 212 10*3/uL 150-450 [facility] Protein Auto test strip (U) [Mass/Vol]Ordered By: Varghese Duval on 06-15-2022 Protein (U) [Mass/Vol] Negative Negative [facility] RBC Auto (Bld) [#/Vol]Ordere d By: Varghese Duval on 06-15-2022 RBC (Bld) [#/Vol] 4.30 10*6/uL 3.90-5.60 [facility] Serum or plasma anion gap de terminationOrdered By: Varghese Duval on 06-15-2022 Anion gap [Moles/Vol] 14.4 mmol/L 6.0-15.0 [facility] Serum or plasma calcium ledy urement (mass/volume)Ordered By: Varghese Duval on 06-15-2022 Calcium [Mass/Vol] 8.5 mg/dL 8.2-10.2 [facility] Serum or plasma chloride carlyn surement (moles/volume)Ordered By: Varghese Duval on 06-15-2022 Chloride [Moles/Vol] 98 mmol/L 95-114 [facility] Serum or plasma glucose ledy urement (mass/volume)Ordered By: Varghese Duval on 06-15-2022 Glucose [Mass/Vol] 74 mg/dL 70-100 [facility] Comment on above: ADA recommended refe rence rangeRandom Glucose Reference Range is dependent on time and content of last meal. Glucose of more than 200 mg/dL in a nonstressed, ambulatory subject supports the diagnosis of Diabetes Mellitus. Serum or plasma potassium me asurement (moles/volume)Ordered By: Varghese Duval on 06-15-2022 Potassium [Moles/Vol] 4.2 mmol/L 3.5-5.1 [facility] Serum or plasma sodium measu rement (moles/volume)Ordered By: Varghese Duval on 06-15-2022 Sodium [Moles/Vol] 129 mmol/L 136-146 [facility] Serum or plasma total carbon dioxide measurement (moles/volume)Ordered By: Varghese Duval on 06-15-2022 CO2 [Moles/Vol] 20.8 mmol/L 22.0-30.0 [facility] Serum or plasma urea nitroge n measurement (mass/volume)Ordered By: Varghese Duval on 06-15-2022 Urea nitrogen [Mass/Vol] 4 mg/dL 9-23 [facility] Specific gravity Auto test s trip (U) [Rel density]Ordered By: Varghese Duval on 06-15-2022 Specific gravity (U) [Rel density] 1.008 1.001-1.030 [facility] Urine clarity by refractomet ry automatedOrdered By: Varghese Duval on 06-15-2022 Clarity Refractometry automated (U) Clear Clear [facility] Urine glucose measurement by automated test strip (mass/volume)Ordered By: Varghese Duval on 06-15-2022 Glucose Auto test strip (U) [Mass/Vol] Normal mg/dL Normal [facility] Urine hemoglobin detection b y automated test stripOrdered By: Varghese Duval on 06-15-2022 Hemoglobin Auto test strip Ql (U) Negative Negative [facility] Urine leukocyte esterase det ection by automated test stripOrdered By: Varghese Duval on 06-15-2022 Leukocyte esterase Auto test strip Ql (U) Negative Negative [facility] Urobilinogen Auto test strip (U) [Mass/Vol]Ordered By: Varghese Duval on 06-15-2022 Urobilinogen (U) [Mass/Vol] Normal mg/dL Normal [facility] WBC Auto (Bld) [#/Vol]Ordere d By: Varghese Duval on 06-15-2022 WBC (Bld) [#/Vol] 5.4 10*3/uL 4.1-10.5 [facility] pH Auto test strip (U)Ordere d By: Varghese Deankerry on 06-15-2022 pH (U) 5.5 [pH] 5.0-9.[address] [facility] [address] chest w conon 06-01-2022 CT chest w con [facility] Only [facility] Other CT chest w con [facility] Other [facility] chest w con [address] [place] [address] [address] [facility] [place] [address] No [facility] Only [place] Other CT chest w con CT Scan Report [employer] Other CT chest w con Signed [facility] Other CT chest w con Patient: Gustavo Echols N MR#: [id number] [employer] Other CT chest w con [address] [facility] [address] chest w con : 1965 Acct:[id number] [employer] Other CT chest w con Age/Sex: 57 / M ADM Date: 06/01/[address] [facility] [address] chest w con Loc: CT Room: Type: [facility] [employer] Other CT chest w con Attending Dr: Rachid Chase MD [employer] Other CT chest w con Copies to: Rachid whitlock MD [employer] Other CT chest w con Ordering Provider: Narinder Chase MD [employer] Other CT chest w con Date of Service: 06/01/[address] [facility] [address] chest w con CT/CT chest w con: C34.[address] [facility] [address] chest w con CT chest withcontrast [employer] Other CT chest w con TECHNIQUE: Axial adore ging with 2-D reconstruction. 83 cc of [id number] CT exam was performed [employer] Other CT chest w con using one or more th e following dose reduction techniques: Automated exposure control, adjustment of [employer] Other CT chest w con the MA and/or Kv according to patient size, or use of the iterative reconstruction technique. [employer] Other CT chest w con History: History of lung cancer. Chest tightness. Shortness of breath. [employer] Other CT chest w con COMPARISON: 04/10/[address] [facility] [address] chest w con No thyroid abnormali ty [id number] present on the left. [employer] Other CT chest w con Central airway is patent. [employer] Other CT chest w con No esophageal abnormality identified. [employer] Other CT chest w con Heart is not enlarge d. No pericardial effusion is seen. [employer] Other CT chest w con Nonenlarged mediasti nal lymph nodes identified. No hilar mass or adenopathy is seen. [employer] Other CT chest w con No thoracic aortic aneurysm is seen. [employer] Other CT chest w con No lung nodules identified. [employer] Other CT chest w con No infiltrate or congestion identified. Developing medial right middle lobe atelectasis. Large [employer] Other CT chest w con right pleural effusi on redemonstrated. This is similar to prior examination. No pneumothorax seen. [employer] Other CT chest w con Emphysematous change s redemonstrated. [employer] Other CT chest w con No chest wall abnormality seen. The bony structures are intact. [employer] Other CT chest w con Images of the upper abdomen are noncontributory. [employer] Other CT chest w con C T/CT chest w con [employer] Other CT chest w con IMPRESSION: Developi ng medial right middle lobe atelectasis. Continued large right pleural [employer] Other CT chest w con effusion. Emphysema. [employer] Other CT chest w con Impression dictated by: Franklin Gomes M.D.06/01/2022 3:[address] [facility] [address] chest w con Dictation Location: [place] [address] [facility] [address] chest w con Transcribed By: PWS 06/01/[address] [facility] [address] chest w con Dictated By: Franklin Gomes DO 06/01/22 [facility] Other [address] chest w con Signed By: [facility] Other CT chest w con 06/01/22 1520 [employer] Other Creatinine (Bld) [Mass/Vol]O rdered By: Rachid Chase on 06-01-2022 Creatinine [Mass/Vol] 0.8 mg/dL 0.6-1.3 [facility] Comment on above: ER/ESD physician is notified/shown all ISTAT results.Critical values may be confirmed by laboratory testing ifdeemed necessary by ER attending doctor. No Panel InformationOrdered By: Rachid Chase on 06-01-2022 POC Estimated GFR > 60 [facility] Comment on above: GFR estimated refere nce range: According to KDOQI guidelines, <60 ml/min/1.73m2 is sufficient to diagnose a patient with chronic kidney disease. POC Estimated GFR Non- Amer > 60 [facility] Activated partial thrombopla stin time (aPTT) in platelet poor plasma by coagulation aOrdered By: Estela Varma on 04-18-2022 aPTT Coag (PPP) [Time] 44.4 s 25.1-36.5 [facility] Laboratory - CoagulationOrde red By: Estela Varma on 04-18-2022 PT Coag (PPP) [Time] 11.2 s 9.0-12.9 [facility] Platelet poor plasma interna tional normalized ratio (INR) by coagulation assay (relatOrdered By: Estela Varma on 04-18-2022 INR Coag (PPP) [Relative time] 1.0 {INR} [facility] Comment on above: INR Therapeutic Rang e [...] 04-18-2022 Platelets (Bld) [#/Vol] 158 10*3/uL 150-450 [facility] Bacterial blood cultureOrder ed By: Tez Irene on 04-15-2022 Bacteria identified Cx Nom (Bld) NO GROWTH 5 DAYS [facility] Bacteria identified Anaer cx Nom (Unsp spec)Ordered By: Tez Irene on 04-14-2022 Anaerobic microbial culture No Anaerobes Isolated 3 Days [facility] ABO and Rh group post transf usion reaction Nom (Bld)Ordered By: Tez Irene on 04-12-2022 Microscopic observation Gram stain Nom (Unsp spec) [facility] Aerobic cultureOrdered By: Krystina Irene on 04-11-2022 Bacteria identified Aer cx Nom (Unsp spec) No Growth 2 Days [facility] Anaerobic cultureOrdered By: Tez Irene on 04-11-2022 Bacteria identified Anaer cx Nom (Unsp spec) No Anaerobes Isolated 3 Days [facility] Body fluid differential cell countOrdered By: Tez Irene on 04-11-2022 Differential panel (Body fld) 4 % [facility] Comment on above: The reference interv al and other method performance specifications have not been established for this body fluid. The test result must be integrated into the clinical context for interpretation. Differential panel (Body fld) 0 % [facility] Comment on above: The reference interv al and other method performance specifications have not been established for this body fluid. The test result must be integrated into the clinical context for interpretation. Body fluid protein measureme nt (mass/volume)Ordered By: Tez Irene on 04-11-2022 Protein (Body fld) [Mass/Vol] 3.8 g/dL [facility] Cells Counted Total [#] in B sarah fluidOrdered By: Tez Irene on 04-11-2022 Cells Counted Total (Body fld) [#] 1147 /uL [facility] Comment on above: The reference interv al and other method performance specifications have not been established for this body fluid. The test result must be integrated into the clinical context for interpretation. Color of Spun Body fluidOrde red By: Tez Irene on 04-11-2022 Color (Spun body fld) Straw [facility] Comment on above: The reference interv al and other method performance specifications have not been established for this body fluid. The test result must be integrated into the clinical context for interpretation. Determination of appearance of body fluidOrdered By: Tez Irene on 04-11-2022 Appearance (Body fld) Hazy [facility] Comment on above: The reference interv al and other method performance specifications have not been established for this body fluid. The test result must be integrated into the clinical context for interpretation. Erythrocytes [#/volume] in B sarah fluid by Automated countOrdered By: Tez Irene on 04-11-2022 RBC Auto (Body fld) [#/Vol] 97055 mm^3 [facility] Comment on above: The reference interv al and other method performance specifications have not been established for this body fluid. The test result must be integrated into the clinical context for interpretation. Evaluation of color of body fluidOrdered By: Tez Irene on 04-11-2022 Color (Body fld) Straw [facility] Comment on above: The reference interv al and other method performance specifications have not been established for this body fluid. The test result must be integrated into the clinical context for interpretation. Gram stain for investigation of transfusion reactionOrdered By: Tez Irene on 04-11-2022 Microscopic observation Gram stain Nom (Unsp spec) [facility] Lactate dehydrogenase measur ement (enzymatic activity/volume)Ordered By: Tez Irene on 04-11-2022 LDH (Unsp spec) [Catalytic activity/Vol] 88 [IU]/mL [facility] Comment on above: No reference range e stablished LDH (Unsp spec) [Catalytic activity/Vol] 100 U/L 45-190 [facility] Manual body fluid eosinophil s/100 leukocytesOrdered By: Tez Irene on 04-11-2022 Eosinophils/100 WBC Manual cnt (Body fld) 0 /100{WBC} 0-3 [facility] Manual body fluid lymphocyte s/100 leukocytesOrdered By: Tez Irene on 04-11-2022 Lymphocytes/100 WBC Manual cnt (Body fld) 61 % [facility] Comment on above: The reference interv al and other method performance specifications have not been established for this body fluid. The test result must be integrated into the clinical context for interpretation. Neutrophils/100 WBC Manual c nt (Body fld)Ordered By: Tez Irene on 04-11-2022 Neutrophils/100 WBC (Body fld) 35 % [facility] Comment on above: The reference interv al and other method performance specifications have not been established for this body fluid. The test result must be integrated into the clinical context for interpretation. Troponin I.cardiac [Mass/vol ume] in Serum or Plasma by High sensitivity methodOrdered By: Tez Irene on 04-11-2022 Troponin I.cardiac High sensitivity method [Mass/Vol] 5 pg/mL 0-20 [facility] Albumin [Mass/volume] in Ser um or PlasmaOrdered By: Kali Longo on 04-10-2022 Albumin [Mass/Vol] 3.3 g/dL 3.2-5.5 [facility] Albumin [Mass/volume] in Ser um or PlasmaOrdered By: Estela Varma on 04-10-2022 Albumin [Mass/Vol] 3.4 g/dL 3.2-5.5 [facility] Bacterial blood cultureOrder ed By: Tez Irene on 04-10-2022 Bacteria identified Cx Nom (Bld) NO GROWTH 5 DAYS [facility] Basophils Auto (Bld) [#/Vol] Ordered By: Kali Longo on 04-10-2022 Basophils (Bld) [#/Vol] 0.1 10*3/uL 0.0-0.2 [facility] Basophils Auto (Bld) [#/Vol] Ordered By: Estela Varma on 04-10-2022 Basophils (Bld) [#/Vol] 0.1 10*3/uL 0.0-0.2 [facility] Basophils/100 WBC Auto (Bld) Ordered By: Kali Longo on 04-10-2022 Basophils/100 WBC (Bld) 1.0 % . [facility] Basophils/100 WBC Auto (Bld) Ordered By: Estela Varma on 04-10-2022 Basophils/100 WBC (Bld) 0.9 % . [facility] Creatinine and Glomerular fi ltration rate.predicted panel (S/P/Bld)Ordered By: Kali Longo on 04-10-2022 Creatinine [Mass/Vol] 0.86 mg/dL 0.64-1.27 [facility] Creatinine and Glomerular fi ltration rate.predicted panel (S/P/Bld)Ordered By: Estela Varma on 04-10-2022 Creatinine [Mass/Vol] 0.92 mg/dL 0.64-1.27 [facility] Eosinophils Auto (Bld) [#/Vo l]Ordered By: Kali Longo on 04-10-2022 Eosinophils (Bld) [#/Vol] 0.1 10*3/uL 0.0-0.45 [facility] Eosinophils Auto (Bld) [#/Vo l]Ordered By: Estela Varma on 04-10-2022 Eosinophils (Bld) [#/Vol] 0.2 10*3/uL 0.0-0.45 [facility] Eosinophils/100 WBC Auto (Bl d)Ordered By: Kali Longo on 04-10-2022 Eosinophils/100 WBC (Bld) 1.5 % . [facility] Eosinophils/100 WBC Auto (Bl d)Ordered By: Estela Varma on 04-10-2022 Eosinophils/100 WBC (Bld) 2.9 % . [facility] Erythrocyte distribution wid th Auto (RBC) [Ratio]Ordered By: Kali Longo on 04-10-2022 Erythrocyte distribution width (RBC) [Ratio] 14.1 % 12.0-14.8 [facility] Erythrocyte distribution wid th Auto (RBC) [Ratio]Ordered By: Estela Varma on 04-10-2022 Erythrocyte distribution width (RBC) [Ratio] 14.6 % 12.0-14.8 [facility] Estimated glomerular filtrat ion rate (GFR) non- AmericanOrdered By: Kali Longo on 04-10-2022 GFR/1.73 sq M.predicted among non-blacks MDRD (S/P/Bld) [Vol rate/Area] > 60 mL/Min [facility] Estimated glomerular filtrat ion rate (GFR) non- AmericanOrdered By: Estela Varma on 04-10-2022 GFR/1.73 sq M.predicted among non-blacks MDRD (S/P/Bld) [Vol rate/Area] > 60 mL/Min [facility] Globulin Calc (S) [Mass/Vol] Ordered By: Kali Longo on 04-10-2022 Globulin (S) [Mass/Vol] 3.1 g/dL [facility] Globulin Calc (S) [Mass/Vol] Ordered By: Estela Varma on 04-10-2022 Globulin (S) [Mass/Vol] 3.1 g/dL [facility] Hematocrit Auto (Bld) [Volum e fraction]Ordered By: Kali Longo on 04-10-2022 Hematocrit (Bld) [Volume fraction] 44.7 % 38.8-50.0 [facility] Hematocrit Auto (Bld) [Volum e fraction]Ordered By: Estela Varma on 04-10-2022 Hematocrit (Bld) [Volume fraction] 46.1 % 38.8-50.0 [facility] Hemoglobin [Mass/volume] in BloodOrdered By: Kali Longo on 04-10-2022 Hemoglobin (Bld) [Mass/Vol] 15.2 g/dL 13.0-17.0 [facility] Hemoglobin [Mass/volume] in BloodOrdered By: Estela Varma on 04-10-2022 Hemoglobin (Bld) [Mass/Vol] 15.5 g/dL 13.0-17.0 [facility] - Chemistry and C hemistry - challengeOrdered By: Kali Longo on 04-10-2022 Natriuretic peptide B (Bld) [Mass/Vol] 19.0 pg/mL 5-100 [facility] - Hematology and Cell countsOrdered By: Kali Longo on 04-10-2022 Nucleated RBC/100 WBC (Bld) [Ratio] 0.1 % 0-0.5 [facility] - Hematology and Cell countsOrdered By: Estela Varma on 04-10-2022 Nucleated RBC/100 WBC (Bld) [Ratio] 0.1 % 0-0.5 [facility] Leukocytes [#/volume] in Blo od by Automated countOrdered By: Kali Longo on 04-10-2022 WBC (Bld) [#/Vol] 6.1 10*3/uL 4.5-11.0 [facility] Leukocytes [#/volume] in Blo od by Automated countOrdered By: Estela Varma on 04-10-2022 WBC (Bld) [#/Vol] 6.3 10*3/uL 4.5-11.0 [facility] Lymphocytes Auto (Bld) [#/Vo l]Ordered By: Kali Longo on 04-10-2022 Lymphocytes (Bld) [#/Vol] 0.9 10*3/uL 1.00-4.8 [facility] Lymphocytes Auto (Bld) [#/Vo l]Ordered By: Estela Varma on 11-28-2022 Lymphocytes (Bld) [#/Vol] 1.0 10*3/uL 1.00-4.8 [facility] Lymphocytes/100 WBC Auto (Bl d)Ordered By: Kali Longo on 04-10-2022 Lymphocytes/100 WBC (Bld) 14.2 % . [facility] Lymphocytes/100 WBC Auto (Bl d)Ordered By: Estela Varma on 04-10-2022 Lymphocytes/100 WBC (Bld) 16.2 % . [facility] MCH Auto (RBC) [Entitic mass ]Ordered By: Kali Longo on 04-10-2022 MCH (RBC) [Entitic mass] 32.9 pg 27.5-35.2 [facility] MCH Auto (RBC) [Entitic mass ]Ordered By: Estela Varma on 04-10-2022 MCH (RBC) [Entitic mass] 32.6 pg 27.5-35.2 [facility] MCHC Auto (RBC) [Mass/Vol]Or dered By: Kali Longo on 04-10-2022 MCHC (RBC) [Mass/Vol] 33.9 g/dL 32.5-35.6 [facility] MCHC Auto (RBC) [Mass/Vol]Or dered By: Estela Varma on 04-10-2022 MCHC (RBC) [Mass/Vol] 33.6 g/dL 32.5-35.6 [facility] MCV Auto (RBC) [Entitic vol] Ordered By: Kali Longo on 04-10-2022 MCV (RBC) [Entitic vol] 96.9 fL 83.5-101 [facility] MCV Auto (RBC) [Entitic vol] Ordered By: Estela Varma on 04-10-2022 MCV (RBC) [Entitic vol] 97.2 fL 83.5-101 [facility] Monocytes Auto (Bld) [#/Vol] Ordered By: Kali Longo on 04-10-2022 Monocytes (Bld) [#/Vol] 0.6 10*3/uL 0.0-0.8 [facility] Monocytes Auto (Bld) [#/Vol] Ordered By: Estela Varma on 04-10-2022 Monocytes (Bld) [#/Vol] 0.5 10*3/uL 0.0-0.8 [facility] Monocytes/100 WBC Auto (Bld) Ordered By: Kali Longo on 04-10-2022 Monocytes/100 WBC (Bld) 9.9 % . [facility] Monocytes/100 WBC Auto (Bld) Ordered By: Estela Varma on 04-10-2022 Monocytes/100 WBC (Bld) 8.6 % . [facility] Neutrophils Auto (Bld) [#/Vo l]Ordered By: Kali Longo on 04-10-2022 Neutrophils (Bld) [#/Vol] 4.5 10*3/uL 1.8-7.7 [facility] Neutrophils Auto (Bld) [#/Vo l]Ordered By: Estela Varma on 04-10-2022 Neutrophils (Bld) [#/Vol] 4.5 10*3/uL 1.8-7.7 [facility] Neutrophils/100 WBC Auto (Bl d)Ordered By: Kali Longo on 04-10-2022 Neutrophils/100 WBC (Bld) 73.4 % . [facility] Neutrophils/100 WBC Auto (Bl d)Ordered By: Estela Varma on 04-10-2022 Neutrophils/100 WBC (Bld) 71.4 % . [facility] No Panel InformationOrdered By: Kali Longo on 04-10-2022 D-Dimer Quantitative (PE/DVT) 529 ng/mL 0-243 [facility] Comment on above: The reference range for [...] conditions. Estimated GFR () > 60 mL/Min [facility] Comment on above: GFR estimated refere nce range: According to KDOQI guidelines, <60 ml/min/1.73m2 is sufficient to diagnose a patient with chronic kidney disease. Pharmacy Creatinine Clearance (Chem 92.25 [facility] No Panel InformationOrdered By: Estela Varma on 04-10-2022 Estimated GFR () > 60 mL/Min [facility] Comment on above: GFR estimated refere nce range: According to KDOQI guidelines, <60 ml/min/1.73m2 is sufficient to diagnose a patient with chronic kidney disease. Pharmacy Creatinine Clearance (Chem 89.21 [facility] Platelet mean volume Auto (B ld) [Entitic vol]Ordered By: Kali Longo on 04-10-2022 Platelet mean volume (Bld) [Entitic vol] 7.0 fL 6.6-10.1 [facility] Platelet mean volume Auto (B ld) [Entitic vol]Ordered By: Estela Varma on 04-10-2022 Platelet mean volume (Bld) [Entitic vol] 7.4 fL 6.6-10.1 [facility] Platelets Auto (Bld) [#/Vol] Ordered By: Kali Longo on 04-10-2022 Platelets (Bld) [#/Vol] 242 10*3/uL 150-450 [facility] Platelets Auto (Bld) [#/Vol] Ordered By: Estela Varma on 04-10-2022 Platelets (Bld) [#/Vol] 239 10*3/uL 150-450 [facility] Protein [Mass/volume] in Ser um or PlasmaOrdered By: Kali Longo on 04-10-2022 Protein [Mass/Vol] 6.4 g/dL 6.1-7.9 [facility] Protein [Mass/volume] in Ser um or PlasmaOrdered By: Estela Varma on 04-10-2022 Protein [Mass/Vol] 6.5 g/dL 6.1-7.9 [facility] RBC Auto (Bld) [#/Vol]Ordere d By: Kali Longo on 04-10-2022 RBC (Bld) [#/Vol] 4.61 10*6/uL 3.90-5.60 [facility] RBC Auto (Bld) [#/Vol]Ordere d By: Estela Varma on 04-10-2022 RBC (Bld) [#/Vol] 4.75 10*6/uL 3.90-5.60 [facility] Serum or plasma alanine glynn otransferase measurement without P-5'-P (enzymatic activiOrdered By: Kali Longo on 04-10-2022 ALT No additional P-5'-P [Catalytic activity/Vol] 13 U/L [facility] Serum or plasma alanine glynn otransferase measurement without P-5'-P (enzymatic activiOrdered By: Estela Varma on 04-10-2022 ALT No additional P-5'-P [Catalytic activity/Vol] 14 U/L [facility] Serum or plasma albumin/glob ulin mass ratioOrdered By: Kali Longo on 04-10-2022 Albumin/Globulin [Mass ratio] 1.1 {ratio} [facility] Serum or plasma albumin/glob ulin mass ratioOrdered By: Estela Varma on 04-10-2022 Albumin/Globulin [Mass ratio] 1.1 {ratio} [facility] Serum or plasma alkaline abhijit sphatase measurement (enzymatic activity/volume)Ordered By: Kali Longo on 04-10-2022 ALP [Catalytic activity/Vol] 127 U/L [address] Serum or plasma alkaline abhijit sphatase measurement (enzymatic activity/volume)Ordered By: Estela aVrma on 04-10-2022 ALP [Catalytic activity/Vol] 128 U/L [address] Serum or plasma anion gap de terminationOrdered By: Kali Longo on 04-10-2022 Anion gap [Moles/Vol] 15.8 mmol/L 6.0-15.0 [facility] Serum or plasma anion gap de terminationOrdered By: Estela Varma on 04-10-2022 Anion gap [Moles/Vol] 17.3 mmol/L 6.0-15.0 [facility] Serum or plasma aspartate am inotransferase measurement (enzymatic activity/volume)Ordered By: Kali Longo on 04-10-2022 AST [Catalytic activity/Vol] 19 U/L [facility] Serum or plasma aspartate am inotransferase measurement (enzymatic activity/volume)Ordered By: Estela Varma on 04-10-2022 AST [Catalytic activity/Vol] 19 U/L [facility] Serum or plasma calcium ledy urement (mass/volume)Ordered By: Kali Longo on 04-10-2022 Calcium [Mass/Vol] 8.5 mg/dL 8.2-10.2 [facility] Serum or plasma calcium ledy urement (mass/volume)Ordered By: Estela Varma on 04-10-2022 Calcium [Mass/Vol] 8.5 mg/dL 8.2-10.2 [facility] Serum or plasma carcinoembry onic antigen measurement (mass/volume)Ordered By: Estela Varma on 04-10-2022 Carcinoembryonic Ag [Mass/Vol] 10.5 ng/mL 0.0-3.0 [facility] Serum or plasma chloride carlyn surement (moles/volume)Ordered By: Kali Longo on 04-10-2022 Chloride [Moles/Vol] 95 mmol/L 95-114 [facility] Serum or plasma chloride carlyn surement (moles/volume)Ordered By: Estela Varma on 04-10-2022 Chloride [Moles/Vol] 98 mmol/L 95-114 [facility] Serum or plasma glucose ledy urement (mass/volume)Ordered By: Kali Longo on 04-10-2022 Glucose [Mass/Vol] 75 mg/dL 70-100 [facility] Comment on above: ADA recommended refe rence rangeRandom Glucose Reference Range is dependent on time and content of last meal. Glucose of more than 200 mg/dL in a nonstressed, ambulatory subject supports the diagnosis of Diabetes Mellitus. Serum or plasma glucose ledy urement (mass/volume)Ordered By: Estela Varma on 04-10-2022 Glucose [Mass/Vol] 73 mg/dL 70-100 [facility] Comment on above: ADA recommended refe rence rangeRandom Glucose Reference Range is dependent on time and content of last meal. Glucose of more than 200 mg/dL in a nonstressed, ambulatory subject supports the diagnosis of Diabetes Mellitus. Serum or plasma potassium me asurement (moles/volume)Ordered By: Kali Longo on 04-10-2022 Potassium [Moles/Vol] 4.2 mmol/L 3.5-5.1 [facility] Serum or plasma potassium me asurement (moles/volume)Ordered By: Estela Varma on 04-10-2022 Potassium [Moles/Vol] 4.0 mmol/L 3.5-5.1 [facility] Serum or plasma sodium measu rement (moles/volume)Ordered By: Kali Longo on 04-10-2022 Sodium [Moles/Vol] 130 mmol/L 136-146 [facility] Serum or plasma sodium measu rement (moles/volume)Ordered By: Estela Varma on 04-10-2022 Sodium [Moles/Vol] 131 mmol/L 136-146 [facility] Serum or plasma total biliru bin measurement (mass/volume)Ordered By: Kali Longo on 04-10-2022 Bilirubin [Mass/Vol] 0.6 mg/dL 0.3-1.2 [facility] Serum or plasma total biliru bin measurement (mass/volume)Ordered By: Estela Varma on 04-10-2022 Bilirubin [Mass/Vol] 0.7 mg/dL 0.3-1.2 [facility] Serum or plasma total carbon dioxide measurement (moles/volume)Ordered By: Kali Longo on 04-10-2022 CO2 [Moles/Vol] 23.4 mmol/L 22.0-30.0 [facility] Serum or plasma total carbon dioxide measurement (moles/volume)Ordered By: Estela Varma on 04-10-2022 CO2 [Moles/Vol] 19.7 mmol/L 22.0-30.0 [facility] Serum or plasma urea nitroge n measurement (mass/volume)Ordered By: Kali Longo on 04-10-2022 Urea nitrogen [Mass/Vol] 7 mg/dL 9-23 [facility] Serum or plasma urea nitroge n measurement (mass/volume)Ordered By: Estela Varma on 04-10-2022 Urea nitrogen [Mass/Vol] 7 mg/dL 02-03 [facility] TSH DL <= 0.005 mIU/L QnOrde red By: Estela Varma on 04-10-2022 TSH Qn 2.57 m[IU]/L 0.45-5.33 [facility] Troponin I.cardiac [Mass/vol ume] in Serum or Plasma by High sensitivity methodOrdered By: Kali Longo on 04-10-2022 Troponin I.cardiac High sensitivity method [Mass/Vol] 5 pg/mL 0- [facility] Creatinine and Glomerular fi ltration rate.predicted panel (S/P/Bld)Ordered By: Estela Varma on 01-03-2022 Creatinine [Mass/Vol] 0.69 mg/dL 0.64-1.27 [facility] Estimated glomerular filtrat ion rate (GFR) non- AmericanOrdered By: Estela Varma on 01-03-2022 GFR/1.73 sq M.predicted among non-blacks MDRD (S/P/Bld) [Vol rate/Area] > 60 mL/Min [facility] No Panel InformationOrdered By: Estela Varma on 01-03-2022 Estimated GFR () > 60 mL/Min [facility] Comment on above: GFR estimated refere nce range: According to KDOQI guidelines, <60 ml/min/1.73m2 is sufficient to diagnose a patient with chronic kidney disease. Pharmacy Creatinine Clearance (Chem 122.86 [facility] Serum or plasma urea nitroge n measurement (mass/volume)Ordered By: Estela Varma on 01-03-2022 Urea nitrogen [Mass/Vol] 3 mg/dL 02-03 [facility] Office Visit (Cardiology)on 11-29-2021 Follow-up visit Diagnoses/Problems Assessed Lung cancer (162.9) (C34.90) Chest pain (786.50) (R07.9) Former smoker (V15.82) (Z87.891) quit 2020 1ppd Body mass index (BMI) of 20.0 to 20.9 in adult (V85.1) (Z68.20) COPD (chronic obstructive pulmonary disease) (496) (J44.9) Orders Health Maintenance Depression Follow-up Visit Outpatient Follow-up Status: Complete Done: [id number] SocHx: Former smoker Tobacco Use Screening; Status:Complete; Done: [id number] Patient Instructions By signing my name below, [...] Complaint Follow up Heart Cath results. 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 Vitals Vital Signs Recorded: 29Nov2021 09:05AM Heart Rate96, R Radial Jacvtntr061, RUE, Sitting Fxqymfgwk72, RUE, Sitting Blood Pressure Cuff SizeAdult Height6 ft Nxpqjt802 lb 8 oz BMI Maeiopwyvm59.28 kg/m2 BSA Calculated1.88 Tobacco Useb) No (more content not included)... [facility] CARDIAC SONIA 3-6on 2 CK [Catalytic activity/Vol] 55 U/L Normal 39-308 [facility] Comment on above: Performed By: #### C MREP #### [facility] [address] [place] [address] Dr. Sushant Pradhan CK.MB [Mass/Vol] 1.25 ng/mL Normal <=3.60 [facility] Comment on above: Performed By: #### C MREP #### [facility] [address] [place] [address] Dr. Sushant Pradhan HSTROP 4.5 pg/mL Normal 4.0-76.1 [facility] Comment on above: Result Comment: CUT- OFF POINTS HAVE BEEN ESTABLISHED BASED ON THE FOURTH UNIVERSAL DEFINITIONS OF MYOCARDIAL INFARCTION. THE UPPER REFERENCE LIMIT (URL) OF TROPONIN, DEFINED THE 99TH PERCENTILE OF cTnI DISTRIBUTION IN A REFERENCE POPULATION, HAS BEEN CONFIRMED THE DECISION THRESHOLD FOR [place] DIAGNOSIS. Performed By: #### C MREP #### [facility] [address] [place] [address] Dr. Sushant Pradhan CBC AUTO DIFFon 11-24-2021 BASO # 0.0 103/ul Normal 0.0-0.1 [facility] Comment on above: Performed By: #### C BC #### [facility] [address] [place] [address] Dr. Sushant Pradhan Basophils/100 WBC (Bld) 0.2 % Normal 0.2-2.0 [facility] Comment on above: Performed By: #### C BC #### [facility] [address] [place] [address] Dr. Sushant Pradhan EO # 0.0 103/ul Normal 0.0-0.7 [facility] Comment on above: Performed By: #### C BC #### [facility] [address] [place] [address] Dr. Sushant Pradhan Eosinophils/100 WBC (Bld) 0.0 % Critically low 0.9-7.0 [facility] Comment on above: Performed By: #### C BC #### [facility] [address] [place] [address] Dr. Sushant Pradhan Erythrocyte distribution width (RBC) [Ratio] 14.7 % Normal 11.0-15.0 [facility] Comment on above: Performed By: #### C BC #### [facility] [address] [place] [address] Dr. Sushant Pradhan Hematocrit (Bld) [Volume fraction] 35.5 % Critically low 42.0-54.0 [facility] Comment on above: Performed By: #### C BC #### [facility] [address] [place] [address] Dr. Sushant Pradhan Hemoglobin (Bld) [Mass/Vol] 12.8 g/dL Critically low 14.0-18.0 [facility] Comment on above: Performed By: #### C BC #### [facility] [address] [place] [address] Dr. Sushant Pradhan IG # 0.01 10e3/ul Normal 0.00-0.03 [facility] Comment on above: Performed By: #### C BC #### [facility] [address] [place] [address] Dr. Sushant Pradhan IG % 0.2 % Normal 0.0-0.5 [facility] Comment on above: Performed By: #### C BC #### [facility] [address] [place] [address] Dr. Sushant Pradhan LYMPH # 0.5 103/ul Critically low 1.2-3.8 [facility] Comment on above: Performed By: #### C BC #### [facility] [address] [place] [address] Dr. Sushant Pradhan Lymphocytes/100 WBC (Bld) 8.2 % Critically low 20.5-60.0 [facility] Comment on above: Performed By: #### C BC #### [facility] [address] [place] [address] Dr. Sushant Pradhan MANUAL DIFF REQ NO Normal [facility] Comment on above: Performed By: #### C BC #### [facility] [address] [place] [address] Dr. Sushant Pradhan MCH (RBC) [Entitic mass] 32.5 pg Normal 25.9-34.0 [facility] Comment on above: Performed By: #### C BC #### [facility] [address] [address] [address] Sushant Pradhan MCHC (RBC) [Mass/Vol] 36.1 g/dL Critically high 29.9-35.2 [facility] Comment on above: Performed By: #### C BC #### [facility] [address] [address] [address] Sushant Pradhan MCV (RBC) [Entitic vol] 90.1 fL Normal 80.0-94.0 [facility] Comment on above: Performed By: #### C BC #### [facility] [address] [place] [address] Dr. Sushant Pradhan MONO # 0.2 103/ul Critically low 0.3-0.8 [facility] Comment on above: Performed By: #### C BC #### [facility] [address] [place] [address] Dr. Sushant Pradhan Monocytes/100 WBC (Bld) 3.5 % Normal 1.7-12.0 [facility] Comment on above: Performed By: #### C BC #### [facility] [address] [address] [address] Sushant Pradhan NEUT # 4.8 103/ul Normal 1.4-6.5 [facility] Comment on above: Performed By: #### C BC #### [facility] [address] [place] [address] Dr. Sushant Pradhan Neutrophils/100 WBC (Bld) 87.9 % Critically high 43.0-75.0 [facility] Comment on above: Performed By: #### C BC #### [facility] [address] [place] [address] Dr. Sushant Pradhan Platelet mean volume (Bld) [Entitic vol] 9.4 fL Critically low 9.5-13.5 [facility] Comment on above: Performed By: #### C BC #### [facility] [address] [address] [address] Sushant Pradhan PLT 135 103/ul Critically low 150-450 [facility] [place] Comment on above: Performed By: #### C BC #### [facility] [address] [address] [address] Sushant Pradhan RBC 3.94 106/ul Critically low 4.70-6.10 [facility] Comment on above: Performed By: #### C BC #### [facility] [address] [address] [address] Sushant Pradhan WBC 5.5 103/ul Normal 4.0-11.0 [facility] Comment on above: Performed By: #### C BC #### [facility] [address] [address] [address] Sushant Pradhan LIPID PROFILEon 11-24-2021 CHOL-HDL RATIO NORM SEE BELOW Normal [facility] Comment on above: Result Comment: 3.3 - 4.4 LOW RISK 4.4 - 7.1 AVERAGE RISK 7.1 - 11.0 MODERATE RISK >11.0 HIGH RISK Performed By: #### L IPID, BMP #### [facility] [address] [address] [address] Sushant Pradhan Cholesterol [Mass/Vol] 126 mg/dL Normal <=200 [facility] Comment on above: Performed By: #### L IPID, BMP #### [facility] [address] [address] [address] Sushant Pradhan Cholesterol in HDL [Mass/Vol] 73 mg/dL Critically high 40-60 [facility] Comment on above: Performed By: #### L IPID, BMP #### [facility] [address] [address] [address] Sushant Pradhan Cholesterol in LDL [Mass/Vol] 44.2 mg/dL Normal [facility] Comment on above: Performed By: #### L IPID, BMP #### [facility] [address] [address] [address] Sushant Pradhan Cholesterol.total/Cho lesterol in HDL [Mass ratio] 1.7 {ratio} Normal [facility] Comment on above: Performed By: #### L IPID, BMP #### [facility] [address] [address] [address] Sushant Pradhan HDL NORMAL > or = 60 mg/dl - LO W CARDIOVASCULAR RISK <40 mg/dl - HIGH CARDIOVASCULAR RISK Normal [facility] Comment on above: Performed By: #### L IPID, BMP #### [facility] [address] [address] [address] Sushant Pradhan LDL CALC NORMAL SEE BELOW Normal [facility] Comment on above: Result Comment: <100 mg/dl OPTIMAL 100 - 129 mg/dl NEAR OR ABOVE OPTIMAL 130 - 159 mg/dl BORDERLINE HIGH 160 - 189 mg/dl HIGH >190 mg/dl VERY HIGH Performed By: #### L IPID, BMP #### [facility] [address] [address] [address] Sushant Pradhan Triglyceride [Mass/Vol] 44 mg/dL Normal <=150 [facility] Comment on above: Performed By: #### L IPID, BMP #### [facility] [address] [address] [address] Sushant Pradhan VLDL CALC 8.8 mg/dL Normal [facility] Comment on above: Performed By: #### L IPID, BMP #### [facility] [address] [place] [address] Dr. Sushant Pradhan NM STRESS/REST MULTIon 11-24 NM STRESS/REST MULTI Patient: EDISON ECHOLS. Exam Date: 11/24/2021 : 1965 Gender:M Ordering : DR KRISHAN LARA . Admission #: [id number] Family : Order #: [id number] CLICK HERE TO VIEW EXAM RADIOLOGY REPORT [...] Pagan MD on 11/24/2021 at 15:06 Normal [facility] PROF CHEM 8 (BAS METB)on Anion gap [Moles/Vol] 10.7 mmol/L Normal [facility] Comment on above: Performed By: #### L IPID, BMP #### [facility] [address] [place] [address] Dr. Sushant Pradhan Calcium [Mass/Vol] 8.5 mg/dL Normal 8.5-10.1 [facility] Comment on above: Performed By: #### L IPID, BMP #### [facility] [address] [place] [address] Dr. Sushant Pradhan Chloride [Moles/Vol] 96 mmol/L Critically low 98-107 [facility] Comment on above: Performed By: #### L IPID, BMP #### [facility] [address] [address] [address] Sushant Pradhan CO2 [Moles/Vol] 22.0 mmol/L Normal 21.0-32.0 [facility] Comment on above: Performed By: #### L IPID, BMP #### [facility] [address] [place] [address] Dr. Sushant Pradhan Creatinine [Mass/Vol] 1.04 mg/dL Normal 0.70-1.30 [facility] Comment on above: Performed By: #### L IPID, BMP #### [facility] [address] [address] [address] Sushant Pradhan EGFR-AF BRITISH >60 Normal >=60 [facility] Comment on above: Performed By: #### L IPID, BMP #### [facility] [address] [address] [address] Sushant Pradhan EGFR-NON AF BRITISH >60 Normal >=60 [facility] Comment on above: Performed By: #### L IPID, BMP #### [facility] [address] [address] [address] Sushant Pradhan Glucose [Mass/Vol] 139 mg/dL Critically high 74-106 [facility] Comment on above: Performed By: #### L IPID, BMP #### [facility] [address] [place] [address] Dr. Sushant Pradhan Potassium [Moles/Vol] 4.2 mmol/L Normal 3.5-5.1 [facility] Comment on above: Performed By: #### L IPID, BMP #### [facility] [address] [place] [address] Dr. Sushant Pradhan Sodium [Moles/Vol] 127 mmol/L Critically low 136-145 [facility] Comment on above: Performed By: #### L IPID, BMP #### [facility] [address] [place] [address] Dr. Sushant Pradhan Urea nitrogen [Mass/Vol] 12.0 mg/dL Normal 7.0-18.0 [facility] Comment on above: Performed By: #### L IPID, BMP #### [facility] [address] [place] [address] Dr. Sushant Pradhan Urea nitrogen/Creatinine [Mass ratio] 11.5 mg/mg Normal [facility] Comment on above: Performed By: #### L IPID, BMP #### [facility] [address] [place] [address] Dr. Sushant Pradhan BNPon 11-23-2021 Natriuretic peptide B (Bld) [Mass/Vol] 189.0 pg/mL Normal <=900.0 [facility] Comment on above: Performed By: #### B STAIN MAKER, HSTROPN, BMP #### [facility] [address] [place] [address] Dr. Sushant Pradhan CARDIAC SONIA 3-6on 2 CK [Catalytic activity/Vol] 73 U/L Normal 39-308 [facility] Comment on above: Performed By: #### C MREP #### [facility] [address] [place] [address] Dr. Sushant Pradhan CK.MB [Mass/Vol] 1.78 ng/mL Normal <=3.60 [facility] Comment on above: Performed By: #### C MREP #### [facility] [address] [place] [address] Dr. Sushant Pradhan HSTROP 4.2 pg/mL Normal 4.0-76.1 [facility] Comment on above: Result Comment: CUT- OFF POINTS HAVE BEEN ESTABLISHED BASED ON THE FOURTH UNIVERSAL DEFINITIONS OF MYOCARDIAL INFARCTION. THE UPPER REFERENCE LIMIT (URL) OF TROPONIN, DEFINED THE 99TH PERCENTILE OF cTnI DISTRIBUTION IN A REFERENCE POPULATION, HAS BEEN CONFIRMED THE DECISION THRESHOLD FOR [place] DIAGNOSIS. Performed By: #### C MREP #### [facility] [address] [place] [address] Dr. Sushant Pradhan CBC AUTO DIFFon 11-23-2021 BASO # 0.0 103/ul Normal 0.0-0.1 [facility] Comment on above: Performed By: #### C BC #### [facility] [address] [place] [address] Dr. Sushant Pradhan Basophils/100 WBC (Bld) 0.5 % Normal 0.2-2.0 [facility] Comment on above: Performed By: #### C BC #### [facility] [address] [place] [address] Dr. Sushant Pradhan EO # 0.1 103/ul Normal 0.0-0.7 [facility] Comment on above: Performed By: #### C BC #### [facility] [address] [place] [address] Dr. Sushant Pradhan Eosinophils/100 WBC (Bld) 0.9 % Normal 0.9-7.0 [facility] Comment on above: Performed By: #### C BC #### [facility] [address] [place] [address] Dr. Sushant Pradhan Erythrocyte distribution width (RBC) [Ratio] 15.3 % Critically high 11.0-15.0 [facility] Comment on above: Performed By: #### C BC #### [facility] [address] [place] [address] Dr. Sushant Pradhan Hematocrit (Bld) [Volume fraction] 38.7 % Critically low 42.0-54.0 [facility] Comment on above: Performed By: #### C BC #### [facility] [address] [place] [address] Dr. Sushant Pradhan Hemoglobin (Bld) [Mass/Vol] 14.0 g/dL Normal 14.0-18.0 [facility] Comment on above: Performed By: #### C BC #### [facility] [address] [place] [address] Dr. Sushant Pradhan IG # 0.01 10e3/ul Normal 0.00-0.03 [facility] Comment on above: Performed By: #### C BC #### [facility] [address] [place] [address] Dr. Sushant Pradhan IG % 0.2 % Normal 0.0-0.5 [facility] Comment on above: Performed By: #### C BC #### [facility] [address] [place] [address] Dr. Sushant Pradhan LYMPH # 1.1 103/ul Critically low 1.2-3.8 [facility] [place] Comment on above: Performed By: #### C BC #### [facility] [address] [place] [address] Dr. Sushant Pradhan Lymphocytes/100 WBC (Bld) 17.2 % Critically low 20.5-60.0 [facility] Comment on above: Performed By: #### C BC #### [facility] [address] [place] [address] Dr. Sushant Pradhan MANUAL DIFF REQ NO Normal [facility] Comment on above: Performed By: #### C BC #### [facility] [address] [address] [address] Sushant Pradhan MCH (RBC) [Entitic mass] 32.7 pg Normal 25.9-34.0 [facility] Comment on above: Performed By: #### C BC #### [facility] [address] [address] [address] Sushant Pradhan MCHC (RBC) [Mass/Vol] 36.2 g/dL Critically high 29.9-35.2 [facility] Comment on above: Performed By: #### C BC #### [facility] [address] [place] [address] Dr. Sushant Pradhan MCV (RBC) [Entitic vol] 90.4 fL Normal 80.0-94.0 [facility] Comment on above: Performed By: #### C BC #### [facility] [address] [place] [address] Dr. Sushant Pradhan MONO # 0.5 103/ul Normal 0.3-0.8 [facility] Comment on above: Performed By: #### C BC #### [facility] [address] [place] [address] Dr. Sushant Pradhan Monocytes/100 WBC (Bld) 7.8 % Normal 1.7-12.0 [facility] Comment on above: Performed By: #### C BC #### [facility] [address] [place] [address] Dr. Sushant Pradhan NEUT # 4.7 103/ul Normal 1.4-6.5 [facility] Comment on above: Performed By: #### C BC #### [facility] [address] [place] [address] Dr. Sushant Pradhan Neutrophils/100 WBC (Bld) 73.4 % Normal 43.0-75.0 [facility] Comment on above: Performed By: #### C BC #### [facility] [address] [place] [address] Dr. Sushant Pradhan Platelet mean volume (Bld) [Entitic vol] 9.1 fL Critically low 9.5-13.5 [facility] Comment on above: Performed By: #### C BC #### [facility] [address] [place], [place] [address] Dr. Sushant Pradhan PLT 153 103/ul Normal 150-450 [facility] Comment on above: Performed By: #### C BC #### [facility] [address] [place], [place] [address] Dr. Sushant Pradhan RBC 4.28 106/ul Critically low 4.70-6.10 [facility] Comment on above: Performed By: #### C BC #### [facility] [address] [place], [place] [address] Dr. Sushant Pradhan WBC 6.4 103/ul Normal 4.0-11.0 [facility] Comment on above: Performed By: #### C BC #### [facility] [address] [place], [place] [address] Dr. Sushant Pradhan CTA CHEST WO W [...] MARCE PAGAN Date: 2021-11-23 15:47 Normal [facility]on 11-11 SARS-CoV-2 (COVID-19) RNA DEANA+probe Ql (Unsp spec) Not detected Normal NOT DETECTED [facility] Comment on above: Result Comment: When [...] for this test is supported by the [place] of [employer] and Human Service's declaration that [...] used). Performed By: #### C BC #### [facility] [address] [place] [address] Dr. Sushant Pradhan PROF CHEM 8 (BAS METB)on Anion gap [Moles/Vol] 13.9 mmol/L Normal [facility] Comment on above: Performed By: #### B DEMETRI ALMEIDATRKALEN, BMP #### [facility] [address] [place] [address] Dr. Sushant Pradhan Calcium [Mass/Vol] 8.4 mg/dL Critically low 8.5-10.1 [facility] Comment on above: Performed By: #### B ELLE, HSTROPJaylin, BMP #### [facility] [address] [place] [address] Dr. Sushant Pradhan Chloride [Moles/Vol] 94 mmol/L Critically low 98-107 [facility] Comment on above: Performed By: #### B ELLE HSTRKALEN, BMP #### [facility] [address] [place] [address] Dr. Sushant Pradhan CO2 [Moles/Vol] 24.7 mmol/L Normal 21.0-32.0 [facility] Comment on above: Performed By: #### B STAIN MAKER, HSTROPN, BMP #### [facility] [address] [address] [address] Sushant Pradhan Creatinine [Mass/Vol] 0.97 mg/dL Normal 0.70-1.30 [facility] Comment on above: Performed By: #### B STAIN MAKER, HSTROPN, BMP #### [facility] [address] [address] [address] Sushant Pradhan EGFR-AF BRITISH >60 Normal >=60 [facility] Comment on above: Performed By: #### B STAIN MAKER, HSTROPN, BMP #### [facility] [address] [place] [address] Dr. Sushant Pradhan EGFR-NON AF BRITISH >60 Normal >=60 [facility] Comment on above: Performed By: #### B STAIN MAKER, HSTROPN, BMP #### [facility] [address] [place] [address] Dr. Sushant Pradhan Glucose [Mass/Vol] 76 mg/dL Normal 74-106 [facility] Comment on above: Performed By: #### B STAIN MAKER, HSTROPN, BMP #### [facility] [address] [place] [address] Dr. Sushant Pradhan Potassium [Moles/Vol] 4.6 mmol/L Normal 3.5-5.1 [facility] Comment on above: Performed By: #### B STAIN MAKER, HSTROPN, BMP #### [facility] [address] [address] [address] Sushant Pradhan Sodium [Moles/Vol] 128 mmol/L Critically low 136-145 [facility] Comment on above: Performed By: #### B STAIN MAKER, HSTROPN, BMP #### [facility] [address] [place] [address] Dr. Sushant Pradhan Urea nitrogen [Mass/Vol] 9.0 mg/dL Normal 7.0-18.0 [facility] Comment on above: Performed By: #### B STAIN MAKER, HSTROPN, BMP #### [facility] [address] [place] [address] Dr. Sushant Pradhan Urea nitrogen/Creatinine [Mass ratio] 9.3 mg/mg Normal [facility] Comment on above: Performed By: #### B ELLE, HSMICHOACANON, PATTIE #### [facility] [address] [address] [address] Sushant Pradhan TROPONIN, HIGH SENSITIVITYon 11-23-2021 HSTROP 4.4 pg/mL Normal 4.0-76.1 [facility] Comment on above: Result Comment: CUT- OFF POINTS HAVE BEEN ESTABLISHED BASED ON THE FOURTH UNIVERSAL DEFINITIONS OF MYOCARDIAL INFARCTION. THE UPPER REFERENCE LIMIT (URL) OF TROPONIN, DEFINED THE 99TH PERCENTILE OF cTnI DISTRIBUTION IN A REFERENCE POPULATION, HAS BEEN CONFIRMED THE DECISION THRESHOLD FOR WI DIAGNOSIS. Performed By: #### B ELLE, DEMETRITRKALEN, PATTIE #### [facility] [address] [address] [address] Sushant Pradhan Laboratory - Chemistry and C hemistry - challengeon 09-09-2021 Cholesterol [Mass/Vol] 125\S\125 below low threshold 140-200 [facility] 250 DO Work Phone: Comment on above: Chol less than 200 m g/dl low risk Chol 201-239 mg/dl borderline risk Chol 240 mg/dl and greater high risk Cholesterol in LDL [Mass/Vol] 46\S\46 Normal 0-100 [facility] 250 DO Work Phone: Comment on above: LDL ATP III CLASSIFI CATION LDL less than 100 mg/dL Optimal LDL 100-129 mg/dL Near or above optimal LDL 130-159 mg/dL Borderline high LDL 160-189 mg/dL High LDL greater than 189 mg/dL Very high Laboratory - Microbiology an d Antimicrobial susceptibilityon 09-09-2021 SARS-CoV-2 (COVID-19) RNA DEANA+probe Ql (Unsp spec) [facility] 250 DO Work Phone: No Panel Informationon 09-09 78.5\S\78.5 above high threshold 25.1-36.5 [facility] 250 DO Work Phone: Comment on above: PERFORMED BY:[facility] [place] [address] [place], [place] [phone] MEDICAL DIRECTORCATY DELCID M.D. 1.0\S\1.0 Normal [facility] Work Phone: Comment on [...] valves: 3 - 4.5 11.5\S\11.5 Normal 9.0-12.9 [facility] Work Phone: 1.8\S\1.8 Normal <5.0 [facility] DO Work Phone: Comment on above: PERFORMED BY:[facility] [place] [address] [place], [place] [phone] MEDICAL DIRECTORCATY DELCID M.D. 11\S\11 Normal [facility] DO Work Phone: 57\S\57 Normal 35-149 [facility] Work Phone: Comment on above: TRIG ATP III CLASSIF ICATION TRIG less than 150 mg/dL Normal TRIG 150-199 mg/dL Borderline high TRIG 200-500 mg/dL High TRIG greater than 500 mg/dL Very high Standard traceable to the Center for Disease Conrtrol and Prevention (CDC) test method. 68\S\68 Normal 29-71 [facility] DO Work Phone: Comment on above: HDL CHOL ATP-III CLA SSIFICATION Cardiovascular Risk HDL > or equal to 60 mg/dL LOW HDL < 40 mg/dL HIGH Negative Normal Negative [facility] DO Work Phone: Comment on above: This is a duplicate Jonna SARS Antigen (EROS) result to be used for statistical tracking purpose only.PERFORMED BY:[facility] [place], [place] [phone] MEDICAL DIRECTORCATY DELCID M.D. Office Visit (Cardiology)on [...] pain and dyspnea. Patient is a 56-year-old -[place] gentleman returns and seen in cardiology consultation at the request of Dr. Abdominal Witts for exertional and resting chest discomfort consistent [...] negative for complaint. Vitals Vital Signs Recorded: [id number] 10:09AMRecorded: [id number] 10:05AM [id number], LUE, Dutiyse758, RUE, Sitting Pgpvmwbfx97, LUE, Agejwid04, RUE, Sitting Heart Rate96, Apical Height6 ft Zlhkhx182 lb BMI Sxythhpjaf34.16 kg/m2 BSA (more content not included)... [facility] Tobacco Screening.on 022 Adult depression screening assessment Yes [facility] 250 DO Work Phone: Fall risk assessment c) Not medically indicated [facility] 250 DO Work Phone: Tobacco use status CP b) No [facility] 250 DO Work Phone: Tobacco Screening. 3-Nearly every day [facility] 250 DO Work Phone: Tobacco Screening. 2-More than half the days [facility] 250 DO Work Phone: Tobacco Screening. 0-Not at all [facility] 250 DO Work Phone: Tobacco Screening. Extremely Difficult [facility] 250 DO Work Phone: Albumin [Mass/volume] in Ser um or PlasmaOrdered By: Estela Varma on 09-02-2021 Albumin [Mass/Vol] 3.8 g/dL 3.2-5.5 [facility] Basophils Auto (Bld) [#/Vol] Ordered By: Estela Varma on 09-02-2021 Basophils (Bld) [#/Vol] 0.0 10*3/uL 0.0-0.2 [facility] Basophils/100 WBC Auto (Bld) Ordered By: Estela Varma on 09-02-2021 Basophils/100 WBC (Bld) 0.7 % . [facility] Eosinophils Auto (Bld) [#/Vo l]Ordered By: Estela Varma on 09-02-2021 Eosinophils (Bld) [#/Vol] 0.2 10*3/uL 0.0-0.45 [facility] Eosinophils/100 WBC Auto (Bl d)Ordered By: Estela Varma on 09-02-2021 Eosinophils/100 WBC (Bld) 4.2 % . [facility] Erythrocyte distribution wid th Auto (RBC) [Ratio]Ordered By: Estela Varma on 09-02-2021 Erythrocyte distribution width (RBC) [Ratio] 15.7 % 12.0-14.8 [facility] Globulin Calc (S) [Mass/Vol] Ordered By: Estela Varma on 09-02-2021 Globulin (S) [Mass/Vol] 3.4 g/dL [facility] Glucose Glucometer (dC) [M ass/Vol]Ordered By: George Ash on 09-02-2021 Glucose [Mass/Vol] 82 mg/dL [facility] Comment on above: Random Glucose Refer ence Range is dependent on time and content of last meal. Glucose of more than 200 mg/dL in a nonstressed, ambulatory subject supports the diagnosis of Diabetes Mellitus. Hematocrit Auto (Bld) [Volum e fraction]Ordered By: Estela Varma on 09-02-2021 Hematocrit (Bld) [Volume fraction] 42.4 % 38.8-50.0 [facility] Hemoglobin [Mass/volume] in BloodOrdered By: Estela Varma on 09-02-2021 Hemoglobin (Bld) [Mass/Vol] 14.6 g/dL 13.0-17.0 [facility] - Hematology and Cell countsOrdered By: Estela Vamra on 09-02-2021 Nucleated RBC/100 WBC (Bld) [Ratio] 0.1 % 0-0.5 [facility] Leukocytes [#/volume] in Blo od by Automated countOrdered By: Estela Varma on 09-02-2021 WBC (Bld) [#/Vol] 5.0 10*3/uL 4.5-11.0 [facility] Lymphocytes Auto (Bld) [#/Vo l]Ordered By: Estela Varma on 09-02-2021 Lymphocytes (Bld) [#/Vol] 0.9 10*3/uL 1.00-4.8 [facility] Lymphocytes/100 WBC Auto (Bl d)Ordered By: Estela Varma on 09-02-2021 Lymphocytes/100 WBC (Bld) 18.2 % . [facility] MCH Auto (RBC) [Entitic mass ]Ordered By: Estela Varma on 09-02-2021 MCH (RBC) [Entitic mass] 32.6 pg 27.5-35.2 [facility] MCHC Auto (RBC) [Mass/Vol]Or dered By: Estela Varma on 09-02-2021 MCHC (RBC) [Mass/Vol] 34.4 g/dL 32.5-35.6 [facility] MCV Auto (RBC) [Entitic vol] Ordered By: Estela Varma on 09-02-2021 MCV (RBC) [Entitic vol] 94.8 fL 83.5-101 [facility] Monocytes Auto (Bld) [#/Vol] Ordered By: Estela Varma on 09-02-2021 Monocytes (Bld) [#/Vol] 0.4 10*3/uL 0.0-0.8 [facility] Monocytes/100 WBC Auto (Bld) Ordered By: Estela Varma on 09-02-2021 Monocytes/100 WBC (Bld) 7.9 % . [facility] Neutrophils Auto (Bld) [#/Vo l]Ordered By: Estela Varma on 09-02-2021 Neutrophils (Bld) [#/Vol] 3.5 10*3/uL 1.8-7.7 [facility] Neutrophils/100 WBC Auto (Bl d)Ordered By: Estela Varma on 09-02-2021 Neutrophils/100 WBC (Bld) 69.0 % . [facility] Platelet mean volume Auto (B ld) [Entitic vol]Ordered By: Estela Varma on 09-02-2021 Platelet mean volume (Bld) [Entitic vol] 7.0 fL 6.6-10.1 [facility] Platelets Auto (Bld) [#/Vol] Ordered By: Estela Varma on 09-02-2021 Platelets (Bld) [#/Vol] 186 10*3/uL 150-450 [facility] Protein [Mass/volume] in Ser um or PlasmaOrdered By: Estela Varma on 09-02-2021 Protein [Mass/Vol] 7.2 g/dL 6.1-7.9 [facility] RBC Auto (Bld) [#/Vol]Ordere d By: Estela Varma on 09-02-2021 RBC (Bld) [#/Vol] 4.48 10*6/uL 3.90-5.60 [facility] Serum or plasma alanine glynn otransferase measurement without P-5'-P (enzymatic activiOrdered By: Estela Varma on 09-02-2021 ALT No additional P-5'-P [Catalytic activity/Vol] 13 U/L 10-60 [facility] Serum or plasma albumin/glob ulin mass ratioOrdered By: Estela Varma on 09-02-2021 Albumin/Globulin [Mass ratio] 1.1 {ratio} [facility] Serum or plasma alkaline abhijit sphatase measurement (enzymatic activity/volume)Ordered By: Estela Varma on 09-02-2021 ALP [Catalytic activity/Vol] 130 U/L 32-92 [facility] Serum or plasma aspartate am inotransferase measurement (enzymatic activity/volume)Ordered By: Estela Varma on 09-02-2021 AST [Catalytic activity/Vol] 18 U/L 10-42 [facility] Serum or plasma calcium ledy urement (mass/volume)Ordered By: Estela Varma on 09-02-2021 Calcium [Mass/Vol] 9.0 mg/dL 8.2-10.2 [facility] Serum or plasma carcinoembry onic antigen measurement (mass/volume)Ordered By: Estela Varma on 09-02-2021 Carcinoembryonic Ag [Mass/Vol] 11.4 ng/mL 0.0-3.0 [facility] Serum or plasma chloride carlyn surement (moles/volume)Ordered By: Estela Varma on 09-02-2021 Chloride [Moles/Vol] 100 mmol/L 95-114 [facility] Serum or plasma glucose ledy urement (mass/volume)Ordered By: Estela Varma on 09-02-2021 Glucose [Mass/Vol] 78 mg/dL 70-100 [facility] Comment on above: ADA recommended refe rence rangeRandom Glucose Reference Range is dependent on time and content of last meal. Glucose of more than 200 mg/dL in a nonstressed, ambulatory subject supports the diagnosis of Diabetes Mellitus. Serum or plasma potassium me asurement (moles/volume)Ordered By: Estela Varma on 09-02-2021 Potassium [Moles/Vol] 4.3 mmol/L 3.5-5.1 [facility] Serum or plasma sodium measu rement (moles/volume)Ordered By: Estela Varma on 09-02-2021 Sodium [Moles/Vol] 133 mmol/L 136-146 [facility] Serum or plasma total biliru bin measurement (mass/volume)Ordered By: Estela Varma on 09-02-2021 Bilirubin [Mass/Vol] 0.6 mg/dL 0.3-1.2 [facility] Serum or plasma total carbon dioxide measurement (moles/volume)Ordered By: Estela Varma on 09-02-2021 CO2 [Moles/Vol] 23.9 mmol/L 22.0-30.0 [facility] TSH DL <= 0.005 mIU/L QnOrde red By: George Ash on 01-31-2021 TSH Qn 1.65 m[IU]/L 0.45-5.33 [facility] Lipid Panel Fastingon 2020 Cholesterol [Mass/Vol] 145 mg/dL Normal 0-199 [facility] Comment on above: Result Comment: ATP III Cholesterol classification is Desirable. Performed By: #### L [facility] #### [facility] [address] [place] [address] HDL Cholesterol Fasting 49 mg/dL Normal 40-59 [facility] Comment on above: Result Comment: [...] CHD Performed By: #### L IPDF #### [facility] [address] [place] [address] LDL Cholesterol (Calculated) Fasting 76 mg/dL Normal 0-129 [facility] Comment on above: Result Comment: ATP III LDL Classification is Optimal. Performed By: #### L IPDF #### [facility] [address] [place] [address] Triglycerides Fasting 98 mg/dL Normal 0-150 [facility] Comment on above: Result Comment: ATP III Triglycerides Classification is Normal. Performed By: #### L IPDF #### [facility] [address] [place] [address] Vitamin B12 and Folateon Cobalamin (Vitamin B12) [Mass/Vol] 417 pg/mL Normal 232-1245 [facility] Comment on above: Performed By: #### B 12FO #### [facility] [address] [place] [address] Folate 13.4 ng/mL Normal 7.3-26.1 [facility] Comment on above: Result Comment: As o f 15, the methodology has changed. Results from this methodology should not be compared with results from previous methodology. Performed By: #### B 12FO #### [facility] [address] [place] [address] Vitamin Don 08-20-2020 Vitamin D 33.1 ng/mL Normal 30.0-100.0 [facility] Comment on above: Result Comment: (30- 100 ng/mL) Optimum Level This assay accurately quantifies the sum of vitamin D3, 25-Hydroxy and vitamin D2, 25-Hyroxy. Performed By: #### V ITD #### [facility] [address] [place] [address] Thyroxine (T4) free [Mass/vo lume] in Serum or Plasmaon 08-16-2020 Free T4 [Mass/Vol] 0.79 ng/dL 0.61-1.12 [facility] Lipid Profileon 08-06-2020 Cholesterol [Mass/Vol] 132 mg/dL Normal <200 [facility] Comment on above: Result Comment: Cholesterol Guidelines: <200 Desirable 200-240 Borderline >240 Undesirable Performed By: #### L IPR #### [address] [address] [employer]: Jeo Todd MD Cholesterol in HDL [Mass/Vol] 41 mg/dL Normal >40 [facility] Comment on above: Result Comment: HDL Guidelines: <40 Undesirable 40-59 Borderline >59 Desirable Performed By: #### L IPR #### [address] [address] [employer]: Joe Todd MD Cholesterol in LDL [Mass/Vol] 72 mg/dL Normal 0-130 [facility] Comment on above: Result Comment: LDL Guidelines: <100 Desirable 100-129 Near to/above Desirable 130-159 Borderline >159 Undesirable Direct (measured) LDL and calculated LDL are not interchangeable tests. Performed By: #### L IPR #### [facility] [employer] [address] [place] [address] [employer]: Joe Todd MD Cholesterol.total/Cho lesterol in HDL [Mass ratio] 3.2 {ratio} Normal <5 [facility] Comment on above: Performed By: #### L IPR #### [facility] [employer] [address] [place] [address] [employer]: Joe Todd MD Triglyceride [Mass/Vol] 93 mg/dL Normal <150 [facility] Comment on above: Result Comment: Triglyceride Guidelines: <150 Desirable 150-199 Borderline 200-499 High >499 Very high Based on AHA Guidelines for fasting triglyceride, February 2012. Performed By: #### L IPR #### [facility] [address] [place], [place] [id number] [employer]: Joe Todd MD Cholesterol in VLDL [Mass/Vol] NOT REPORTED Normal 1-30 [facility] Comment on above: Performed By: #### L IPR #### [employer] [address] [place], [place] [id number] [employer]: Joe Todd MD Direct bilirubin measurement on 07-05-2020 Bilirubin.direct [Mass/Vol] 0.1 mg/dL 0.0-0.4 [facility] Serum or plasma non-glucuron idated bilirubin measurement (mass/volume)on 07-05-2020 Bilirubin.indirect [Mass/Vol] 0.8 mg/dL [facility] - Hematology and Cell countson 05-24-2020 WBC (Bld) [#/Vol] 4.9 10*3/uL 4.5-11.0 [facility] Blood anisocytosis detection on 03-08-2020 Anisocytosis Ql (Bld) Slight [facility] No Panel Informationon 03-08 Platelet Estimate Normal Normal [facility] Platelet Morphology Comment Normal Normal [facility] RBC morphologyon 03-08-2020 RBC morphology finding Nom (Bld) N/A [facility] CARDIAC STRESS/REST (DILAN CARDIAL PERFUSION/MIBI)on 03-03-2020 [facility] CARDIAC STRESS/REST (MYOCARDIAL PERFUSION/MIBI) Patient Name: KIRILL ECHOLS STUDY: MYOCARDIAL PERFUSION STRESS TEST WITH LEXISCAN Performing facility: [facility], \n[address], [address], \[place] [address] [facility] Provider: Ema Oliveira DO, [facility] PCP: Dr. Danni Andrea Supervising provider: Tejal King MD, FACC INDICATION: Chest Pain; HISTORY: Gender: M; Age: 54 y/o ; Height: 182.88 cm; Weight: 71.8763247 kg. HTN; Chest Pain; COPD; Quit smoking in 2020 years ago. COMPARISON: No comparison. ACCESSION NUMBER(S): [id number]; [id number]; [id number] ORDERING CLINICIAN: LUKAS OLIVEIRA TECHNIQUE: ONE DAY [...] comparison. Electronically signed by: TEJAL KING MD [facility] CARDIAC STRESS/REST INJE CTIONon 03-03-2020 [facility] CARDIAC STRESS/REST INJECTION Patient Name: KIRILL ECHOLS STUDY: MYOCARDIAL PERFUSION STRESS TEST WITH LEXISCAN Performing facility: [facility], \[address], [address], \[place] [address] [facility] Provider: Ema Oliveira DO, FACC PCP: Dr. Danni Andrea Supervising provider: Tejal King MD, FACC INDICATION: Chest Pain; HISTORY: Gender: M; Age: 54 y/o ; Height: 182.88 cm; Weight: 71.6426413 kg. HTN; Chest Pain; COPD; Quit smoking in 2020 years ago. COMPARISON: No comparison. ACCESSION NUMBER(S): [id number]; [id number]; [id number] ORDERING CLINICIAN: LUKAS OLIVEIRA TECHNIQUE: ONE DAY [...] comparison. Electronically signed by: TEJAL KING MD [facility] PART 2 STRESS OR REST (N O CHARGE)on 03-03-2020 [facility] PART 2 STRESS OR REST (NO CHARGE) Patient Name: KIRILL ECHOLS STUDY: MYOCARDIAL PERFUSION STRESS TEST WITH LEXISCAN Performing facility: [facility], \[address], [address], \[place] [address] [facility] Provider: Ema Oliveira DO, [facility] PCP: Dr. Danni Andrea Supervising provider: Tejal King MD, [facility] INDICATION: Chest Pain; HISTORY: Gender: M; Age: 54 y/o ; Height: 182.88 cm; Weight: 71.6247055 kg. HTN; Chest Pain; COPD; Quit smoking in 2020 years ago. COMPARISON: No comparison. ACCESSION NUMBER(S): [id number]; [id number]; [id number] ORDERING CLINICIAN: LUKAS OLIVEIRA TECHNIQUE: ONE DAY [...] Electronically signed by: TEJAL KING MD Normal [facility] No Panel Informationon 03-02 Schistocytes Rare [facility] Target cellson 03-02-2020 Target cells LM Ql (Bld) Slight [facility] Basophil percentageon 2019 Eosinophils/100 WBC (Bld) 1 % 1-3 [facility] Blood polychromasia detectio n by light microscopyon 02-24-2020 Polychromasia LM Ql (Bld) Slight [facility] - Hematology and Cell countson 02-24-2020 Band form neutrophils/100 WBC (Bld) 13 % 0-5 [facility] Lymphocytes/100 WBC Auto (Bl d)on 02-24-2020 Lymphocytes/100 WBC (Bld) 9 % 18-42 [facility] Monocyte %on 02-24-2020 Monocytes/100 WBC (Bld) 1 % 1-3 [facility] Monocytes/100 WBC Manual cnt (Bld)on 02-24-2020 Monocytes/100 WBC (Bld) 16 % 2-11 [facility] No Panel Informationon 02-23 Dohle Bodies Moderate [facility] Poikilocytosis Slight [facility] Ovalocyte detectionon 2019 Ovalocytes LM Ql (Bld) Slight [facility] Segmented neutrophils/100 WB C Manual cnt (Bld)on 02-24-2020 Segmented neutrophils/100 WBC (Bld) 61 % 50-70 [facility] Hypochromia detectionon 01-13 Hypochromia Ql (Bld) Slight [facility] Macrocytes detectionon 01-19 Macrocytes Ql (Bld) Slight [facility] No Panel Informationon 01-19 Smudge Cells Few [facility] Red blood cell stomatocyte d etectionon 12-09-2019 Stomatocytes LM Ql (Bld) [facility] Respiratory specimen 2019 no mathieu coronavirus RNA detection by probe and target amplifion 11-21-2019 SARS-CoV-2 (COVID-19) RNA DEANA+probe Ql (Resp) Not detected Not Detected [facility] Comment on above: This test was develo ped and its performance characteristicsdetermined by [employer]. This test has not beenFDA cleared or [...] (not detected) result in this assay.Performed at: [facility] [facility], [place] [id number] Director: Antonio Chaney MD, Phone: [phone] Basophils/100 WBC Auto (Bld) on 11-18-2019 Basophils/100 WBC (Bld) 1 % 0-2 [facility] Amylaseon 04-28-2018 Amylase enzyme act/vol 130 U/L High 30-110 [facility] Comment on above: Performed By: #### C BCDIF, PT, GBCHEM, GBTSH, LIPA, MG, GBHCV, HAVIGM, HBCAB, HBSAG, RPR ####[facility] [id number] [place], [place] [phone] GGTon 04-28-2018 Gamma glutamyl transferase [Enzymatic activity/volume] in Serum or Plasma 426 U/L High 15-73 [facility] Comment on above: Performed By: #### C BCDIF, PT, GBCHEM, GBTSH, LIPA, MG, GBHCV, HAVIGM, HBCAB, HBSAG, RPR ####[facility] [id number] [place], [place] [phone] Hepatic Function Pnlon 04-28 Albumin mass conc 4.2 g/dL Normal 3.5-5.0 [facility] Comment on above: Performed By: #### C BCDIF, PT, GBCHEM, GBTSH, LIPA, MG, GBHCV, HAVIGM, HBCAB, HBSAG, RPR ####[facility] [id number] [place], [place] [phone] Alkaline Phos 96 U/L Normal 38-125 [facility] Comment on above: Performed By: #### C BCDIF, PT, GBCHEM, GBTSH, LIPA, MG, GBHCV, HAVIGM, HBCAB, HBSAG, RPR ####[facility] [id number] [place], [place] [phone] ALT enzyme act/vol 60 U/L Normal 21-72 [facility] Comment on above: Performed By: #### C BCDIF, PT, GBCHEM, GBTSH, LIPA, MG, GBHCV, HAVIGM, HBCAB, HBSAG, RPR ####[facility] [id number] [place], [place] [phone] AST enzyme act/vol 65 U/L High 17-59 [facility] Comment on above: Performed By: #### C BCDIF, PT, GBCHEM, GBTSH, LIPA, MG, GBHCV, HAVIGM, HBCAB, HBSAG, RPR ####[facility] Clinical [id number] [place], [place] [phone] Bilirubin Ql (U) 0.3 mg/dL Normal 0.2-1.3 [facility] Comment on above: Performed By: #### C BCDIF, PT, GBCHEM, GBTSH, LIPA, MG, GBHCV, HAVIGM, HBCAB, HBSAG, RPR ####[facility] Clinical [id number] [place], [place] [phone] Bilirubin.direct mass conc 0.2 mg/dL Normal 0.0-0.4 [facility] Comment on above: Performed By: #### C BCDIF, PT, GBCHEM, GBTSH, LIPA, MG, GBHCV, HAVIGM, HBCAB, HBSAG, RPR ####[facility] Clinical [id number] [place], [place] [phone] Protein mass conc 7.3 g/dL Normal 6.2-8.2 [facility] Comment on above: Performed By: #### C BCDIF, PT, GBCHEM, GBTSH, LIPA, MG, GBHCV, HAVIGM, HBCAB, HBSAG, RPR ####[facility] [id number] [facility] [place] [phone] Lipaseon 04-28-2018 Lipase enzyme act/vol 941 U/L High 23-300 [facility] Comment on above: Performed By: #### C BCDIF, PT, GBCHEM, GBTSH, LIPA, MG, GBHCV, HAVIGM, HBCAB, HBSAG, RPR ####[facility] [id number] [facility] [place] [phone] Phenobarbitalon 04-26-2018 Phenobarbital mass conc ug/mL Low 15.0-40.0 [facility] Comment on above: Performed By: #### C BCDIF, PT, GBCHEM, GBTSH, LIPA, MG, GBHCV, HAVIGM, HBCAB, HBSAG, RPR ####[facility] [id number] [facility] [place] [phone] RPRon 04-25-2018 Reagin Ab RPR Ql (S) Nonreactive Normal Nonreactive [facility] Comment on above: Performed By: #### C BCDIF, PT, GBCHEM, GBTSH, LIPA, MG, GBHCV, HAVIGM, HBCAB, HBSAG, RPR ####[facility] [id number] [facility] [place] [phone] Urinalysison 04-25-2018 Bilirubin Negative Normal Negative [facility] Comment on above: Performed By: #### C BCDIF, PT, GBCHEM, GBTSH, LIPA, MG, GBHCV, HAVIGM, HBCAB, HBSAG, RPR ####[facility] [id number] [facility] [place] [phone] Cast SEE NOTES Normal 0 [facility] Comment on above: Result Comment: >20H yaline Cast Performed By: #### C BCDIF, PT, GBCHEM, GBTSH, LIPA, MG, GBHCV, HAVIGM, HBCAB, HBSAG, RPR ####[facility] Clinical [id number] [facility], [place] [phone] Clarity Nom (U) Cloudy Critically abnormal Clear [facility] Comment on above: Performed By: #### C BCDIF, PT, GBCHEM, GBTSH, LIPA, MG, GBHCV, HAVIGM, HBCAB, HBSAG, RPR ####[facility] Clinical [id number] [address], [place] [phone] Color Nom (U) Taylor Critically abnormal Yellow [facility] Comment on above: Performed By: #### C BCDIF, PT, GBCHEM, GBTSH, LIPA, MG, GBHCV, HAVIGM, HBCAB, HBSAG, RPR ####[facility] [id number] [facility], [place] [phone] Crystals SEE NOTES Normal 0 [facility] Comment on above: Result Comment: FewA morphous Performed By: #### C BCDIF, PT, GBCHEM, GBTSH, LIPA, MG, GBHCV, HAVIGM, HBCAB, HBSAG, RPR ####[facility] [id number] [facility] [place] [phone] Epithelial Cells Few Normal [facility] Comment on above: Result Comment: Squa mous Epithelial Cells Performed By: #### C BCDIF, PT, GBCHEM, GBTSH, LIPA, MG, GBHCV, HAVIGM, HBCAB, HBSAG, RPR ####[facility] [id number] [address] [address], [place] [phone] Glucose Negative Normal Negative [facility] Comment on above: Performed By: #### C BCDIF, PT, GBCHEM, GBTSH, LIPA, MG, GBHCV, HAVIGM, HBCAB, HBSAG, RPR ####[facility] [id number] [address]Bay[facility] Centerrdon, [place] [phone] Hemoglobin/Blood Negative Normal Negative [facility] Comment on above: Performed By: #### C BCDIF, PT, GBCHEM, GBTSH, LIPA, MG, GBHCV, HAVIGM, HBCAB, HBSAG, RPR ####[facility] Clinical [id number] [facility] ClinicsEdwinardon, [place] [phone] INR Coag RelTime (Bld) 0-3 Normal 0-3 [facility] Comment on above: Performed By: #### C BCDIF, PT, GBCHEM, GBTSH, LIPA, MG, GBHCV, HAVIGM, HBCAB, HBSAG, RPR ####[facility] Clinical [id number] [facility], [place] [phone] Ketone Trace Critically abnormal Negative [facility] Comment on above: Performed By: #### C BCDIF, PT, GBCHEM, GBTSH, LIPA, MG, GBHCV, HAVIGM, HBCAB, HBSAG, RPR ####[facility] Clinical [id number] [facility], [place] [phone] Leukest Negative Normal Negative [facility] Comment on above: Performed By: #### C BCDIF, PT, GBCHEM, GBTSH, LIPA, MG, GBHCV, HAVIGM, HBCAB, HBSAG, RPR ####[facility] Clinical [id number] [facility] [place] [phone] Nitrites Negative Normal Negative [facility] Comment on above: Performed By: #### C BCDIF, PT, GBCHEM, GBTSH, LIPA, MG, GBHCV, HAVIGM, HBCAB, HBSAG, RPR ####[facility] Clinical [id number] [facility], [place] [phone] pH Test strip (U) 5.0 [pH] Normal 5-7 [facility] Comment on above: Performed By: #### C BCDIF, PT, GBCHEM, GBTSH, LIPA, MG, GBHCV, HAVIGM, HBCAB, HBSAG, RPR ####[facility] Clinical [id number] [facility], [place] [phone] Protein mass conc 100 mg/dl Critically abnormal Negative [facility] Comment on above: Performed By: #### C BCDIF, PT, GBCHEM, GBTSH, LIPA, MG, GBHCV, HAVIGM, HBCAB, HBSAG, RPR ####[facility] Clinical [id number] [facility], [phone] Urine Alpesh Comment Many Normal [facility] Comment on above: Result Comment: MUCO US Performed By: #### C BCDIF, PT, GBCHEM, GBTSH, LIPA, MG, GBHCV, HAVIGM, HBCAB, HBSAG, RPR ####[facility] Clinical [id number] [place] [phone] Urine Spec [place] 1.025 Normal 1.005-1.030 [facility] Comment on above: Performed By: #### C BCDIF, PT, GBCHEM, GBTSH, LIPA, MG, GBHCV, HAVIGM, HBCAB, HBSAG, RPR ####[facility] Clinical [id number] [facility], [phone] Urobilinogen 2.0 mg/dl High 0.0-1.0 [facility] Comment on above: Performed By: #### C BCDIF, PT, GBCHEM, GBTSH, LIPA, MG, GBHCV, HAVIGM, HBCAB, HBSAG, RPR ####[facility] Clinical [id number] [place] [phone] WBC 0-5 Normal 0-5 [facility] Comment on above: Performed By: #### C BCDIF, PT, GBCHEM, GBTSH, LIPA, MG, GBHCV, HAVIGM, HBCAB, HBSAG, RPR ####[facility] Clinical [id number] [facility], [place] [phone] CBCDIFon 04-24-2018 Abs Baso 0.02 k/uL Normal 0-0.2 [facility] Comment on above: Performed By: #### C BCDIF, PT, GBCHEM, GBTSH, LIPA, MG, GBHCV, HAVIGM, HBCAB, HBSAG, RPR ####[facility] Clinical [id number] [facility], [place] [phone] Abs [place] 1.23 k/uL High 0-0.8 [facility] Comment on above: Performed By: #### C BCDIF, PT, GBCHEM, GBTSH, LIPA, MG, GBHCV, HAVIGM, HBCAB, HBSAG, RPR ####[facility] Clinical [id number] [facility], [place] [phone] Abs Neut 7.41 k/uL Normal 1.8-7.7 [facility] Comment on above: Performed By: #### C BCDIF, PT, GBCHEM, GBTSH, LIPA, MG, GBHCV, HAVIGM, HBCAB, HBSAG, RPR ####[facility] Clinical [id number] [facility], [place] [phone] Basophils/100 WBC Auto (Bld) 0.2 % Normal 0-1 [facility] Comment on above: Performed By: #### C BCDIF, PT, GBCHEM, GBTSH, LIPA, MG, GBHCV, HAVIGM, HBCAB, HBSAG, RPR ####[facility] Clinical [id number] [place], [place] [phone] Eosinophils Auto #/vol (Bld) 0.38 10*3/uL Normal 0-0.4 [facility] Comment on above: Performed By: #### C BCDIF, PT, GBCHEM, GBTSH, LIPA, MG, GBHCV, HAVIGM, HBCAB, HBSAG, RPR ####[facility] Clinical [id number] [facility], [place] [phone] Eosinophils/100 WBC Auto (Bld) 3.3 % Normal 0-4 [facility] Comment on above: Performed By: #### C BCDIF, PT, GBCHEM, GBTSH, LIPA, MG, GBHCV, HAVIGM, HBCAB, HBSAG, RPR ####[facility] [id number] [place], [place] [phone] Erythrocyte distribution width Auto Ratio (RBC) 14.6 % High 11.5-14.5 [facility] Comment on above: Performed By: #### C BCDIF, PT, GBCHEM, GBTSH, LIPA, MG, GBHCV, HAVIGM, HBCAB, HBSAG, RPR ####[facility] [id number] [place], [place] [phone] Hematocrit Auto Volume Fraction (Bld) 46.2 % Normal 41.0-53.0 [facility] Comment on above: Performed By: #### C BCDIF, PT, GBCHEM, GBTSH, LIPA, MG, GBHCV, HAVIGM, HBCAB, HBSAG, RPR ####[facility] [id number] [place], [place] [phone] Hemoglobin mass conc (Bld) 16.2 g/dL Normal 13.5-17.5 [facility] Comment on above: Performed By: #### C BCDIF, PT, GBCHEM, GBTSH, LIPA, MG, GBHCV, HAVIGM, HBCAB, HBSAG, RPR ####[facility] [id number] [place], [place] [phone] Immature Gran 0.30 % Normal 0-1.9 [facility] Comment on above: Performed By: #### C BCDIF, PT, GBCHEM, GBTSH, LIPA, MG, GBHCV, HAVIGM, HBCAB, HBSAG, RPR ####[facility] [id number] [place], [place] [phone] Lymphocytes Auto #/vol (Bld) 2.56 10*3/uL Normal 1.0-4.0 [facility] Comment on above: Performed By: #### C BCDIF, PT, GBCHEM, GBTSH, LIPA, MG, GBHCV, HAVIGM, HBCAB, HBSAG, RPR ####[facility] [id number] [place], [place] [phone] Lymphocytes/100 WBC Auto (Bld) 22.0 % Normal 22-44 [facility] Comment on above: Performed By: #### C BCDIF, PT, GBCHEM, GBTSH, LIPA, MG, GBHCV, HAVIGM, HBCAB, HBSAG, RPR ####[facility] [id number] [address]Bay[facility] Centerrdon, [place] [phone] MCH Auto Entitic mass (RBC) 31.6 pG Normal 26-34 [facility] Comment on above: Performed By: #### C BCDIF, PT, GBCHEM, GBTSH, LIPA, MG, GBHCV, HAVIGM, HBCAB, HBSAG, RPR ####[facility] Clinical [id number] [address]Bay[facility] Franklin [facility] Centerrdon, [place] [phone] MCHC Auto mass conc (RBC) 35.1 g/dL Normal 31-37 [facility] Comment on above: Performed By: #### C BCDIF, PT, GBCHEM, GBTSH, LIPA, MG, GBHCV, HAVIGM, HBCAB, HBSAG, RPR ####[facility] Clinical [id number] [address]Baystate Franklin [facility] Centerrdon, [place] [phone] MCV Auto Entitic volume (RBC) 90.1 fL Normal 80-100 [facility] Comment on above: Performed By: #### C BCDIF, PT, GBCHEM, GBTSH, LIPA, MG, GBHCV, HAVIGM, HBCAB, HBSAG, RPR ####[facility] Clinical [id number] [address] [address], [place] [phone] Monocytes/100 WBC Auto (Bld) 10.6 % Normal 4-12 [facility] Comment on above: Performed By: #### C BCDIF, PT, GBCHEM, GBTSH, LIPA, MG, GBHCV, HAVIGM, HBCAB, HBSAG, RPR ####[facility] [id number] [address], [place] [phone] Neutrophils/100 WBC Auto (Bld) 63.6 % Normal 40-70 [facility] Comment on above: Performed By: #### C BCDIF, PT, GBCHEM, GBTSH, LIPA, MG, GBHCV, HAVIGM, HBCAB, HBSAG, RPR ####[facility] Clinical [id number] [facility] [place] [phone] NRBCs 0 /100 WBC Normal 0-0.9 [facility] Comment on above: Performed By: #### C BCDIF, PT, GBCHEM, GBTSH, LIPA, MG, GBHCV, HAVIGM, HBCAB, HBSAG, RPR ####[facility] Clinical [id number] [facility], [place] [phone] Platelets Auto #/vol (Bld) 188 10*3/uL Normal 150-450 [facility] Comment on above: Performed By: #### C BCDIF, PT, GBCHEM, GBTSH, LIPA, MG, GBHCV, HAVIGM, HBCAB, HBSAG, RPR ####[facility] Clinical [id number] [facility], [place] [phone] RBC Auto #/vol (Bld) 5.13 10*6/uL Normal 4.50-5.90 [facility] Comment on above: Performed By: #### C BCDIF, PT, GBCHEM, GBTSH, LIPA, MG, GBHCV, HAVIGM, HBCAB, HBSAG, RPR ####[facility] Clinical [id number] [facility], [place] [phone] WBC Auto #/vol (Bld) 11.63 10*3/uL High 4.5-11.0 [facility] Comment on above: Performed By: #### C BCDIF, PT, GBCHEM, GBTSH, LIPA, MG, GBHCV, HAVIGM, HBCAB, HBSAG, RPR ####[facility] [id number] [facility], [place] [phone] Glennyuliet [facility] Profon 2017 Albumin mass conc 5.0 g/dL Normal 3.5-5.0 [facility] Comment on above: Performed By: #### C BCDIF, PT, GBCHEM, GBTSH, LIPA, MG, GBHCV, HAVIGM, HBCAB, HBSAG, RPR ####[facility] Clinical [id number] [address]Edwinardon, [place] [phone] Alkaline Phos 137 U/L High 38-125 [facility] Comment on above: Performed By: #### C BCDIF, PT, GBCHEM, GBTSH, LIPA, MG, GBHCV, HAVIGM, HBCAB, HBSAG, RPR ####[facility] Clinical [id number] [facility], [place] [phone] ALT enzyme act/vol 54 U/L Normal 21-72 [facility] Comment on above: Performed By: #### C BCDIF, PT, GBCHEM, GBTSH, LIPA, MG, GBHCV, HAVIGM, HBCAB, HBSAG, RPR ####[facility] Clinical [id number] [address]Bay[facility] Franklin [facility] Centerrdon, [place] [phone] Amylase enzyme act/vol 156 U/L High 30-110 [facility] Comment on above: Performed By: #### C BCDIF, PT, GBCHEM, GBTSH, LIPA, MG, GBHCV, HAVIGM, HBCAB, HBSAG, RPR ####[facility] Clinical [id number] [facility], [place] [phone] Anion gap 3 molar conc 18 mmol/L High 0-15 [facility] Comment on above: Performed By: #### C BCDIF, PT, GBCHEM, GBTSH, LIPA, MG, GBHCV, HAVIGM, HBCAB, HBSAG, RPR ####[facility] Clinical [id number] [address]Bay[facility] Franklin [facility] Centerrdon, [place] [phone] AST enzyme act/vol 102 U/L High 17-59 [facility] Comment on above: Performed By: #### C BCDIF, PT, GBCHEM, GBTSH, LIPA, MG, GBHCV, HAVIGM, HBCAB, HBSAG, RPR ####[facility] Clinical [id number] [facility], [place] [phone] Bilirubin Ql (U) 1.5 mg/dL High 0.2-1.3 [facility] Comment on above: Performed By: #### C BCDIF, PT, GBCHEM, GBTSH, LIPA, MG, GBHCV, HAVIGM, HBCAB, HBSAG, RPR ####[facility] Clinical [id number] [facility], [place] [phone] Calcium mass conc 10.0 mg/dL Normal 8.4-10.2 [facility] Comment on above: Performed By: #### C BCDIF, PT, GBCHEM, GBTSH, LIPA, MG, GBHCV, HAVIGM, HBCAB, HBSAG, RPR ####[facility] Clinical [id number] [facility], [place] [phone] Chloride molar conc 91 mmol/L Low 98-107 [facility] Comment on above: Performed By: #### C BCDIF, PT, GBCHEM, GBTSH, LIPA, MG, GBHCV, HAVIGM, HBCAB, HBSAG, RPR ####[facility] Clinical [id number] [facility], [place] [phone] Cholesterol mass conc 155 mg/dL Normal 100-199 [facility] Comment on above: Performed By: #### C BCDIF, PT, GBCHEM, GBTSH, LIPA, MG, GBHCV, HAVIGM, HBCAB, HBSAG, RPR ####[facility] [id number] [facility], [place] [phone] CO2 molar conc 27 mmol/L Normal 22-30 [facility] Comment on above: Performed By: #### C BCDIF, PT, GBCHEM, GBTSH, LIPA, MG, GBHCV, HAVIGM, HBCAB, HBSAG, RPR ####[facility] [id number] [facility], [place] [phone] Creatinine mass conc 1.47 mg/dL High 0.66-1.25 [facility] Comment on above: Performed By: #### C BCDIF, PT, GBCHEM, GBTSH, LIPA, MG, GBHCV, HAVIGM, HBCAB, HBSAG, RPR ####[facility] Clinical [id number] [place], [place] [phone] eGFR Amer >60 Normal >60 [facility] Comment on above: Result Comment: MDRD calculation used for eGFR results. Performed By: #### C BCDIF, PT, GBCHEM, GBTSH, LIPA, MG, GBHCV, HAVIGM, HBCAB, HBSAG, RPR ####[facility] Clinical [id number] [place], [place] [phone] eGFR non Am 53 mL/min/1.73 2 Low >60 [facility] Comment on above: Performed By: #### C BCDIF, PT, GBCHEM, GBTSH, LIPA, MG, GBHCV, HAVIGM, HBCAB, HBSAG, RPR ####[facility] Clinical [id number] [place], [place] [phone] Gamma glutamyl transferase [Enzymatic activity/volume] in Serum or Plasma 602 U/L High 15-73 [facility] Comment on above: Performed By: #### C BCDIF, PT, GBCHEM, GBTSH, LIPA, MG, GBHCV, HAVIGM, HBCAB, HBSAG, RPR ####[facility] Clinical [id number] [place], [place] [phone] Glucose mass conc 98 mg/dL Normal 74-106 [facility] Comment on above: Performed By: #### C BCDIF, PT, GBCHEM, GBTSH, LIPA, MG, GBHCV, HAVIGM, HBCAB, HBSAG, RPR ####[facility] Clinical [id number] [place], [place] [phone] LDH 550 U/L Normal 318-618 [facility] Comment on above: Performed By: #### C BCDIF, PT, GBCHEM, GBTSH, LIPA, MG, GBHCV, HAVIGM, HBCAB, HBSAG, RPR ####[facility] Clinical [id number] [address]Bay[facility] Centerrdon, [place] [phone] Phosphate mass conc 3.9 mg/dL Normal 2.5-4.5 [facility] Comment on above: Performed By: #### C BCDIF, PT, GBCHEM, GBTSH, LIPA, MG, GBHCV, HAVIGM, HBCAB, HBSAG, RPR ####[facility] Clinical [id number] [facility], [place] [phone] Potassium molar conc 3.7 mmol/L Normal 3.5-5.1 [facility] Comment on above: Performed By: #### C BCDIF, PT, GBCHEM, GBTSH, LIPA, MG, GBHCV, HAVIGM, HBCAB, HBSAG, RPR ####[facility] Clinical [id number] [facility] [place] [phone] Protein mass conc 8.7 g/dL High 6.2-8.2 [facility] Comment on above: Performed By: #### C BCDIF, PT, GBCHEM, GBTSH, LIPA, MG, GBHCV, HAVIGM, HBCAB, HBSAG, RPR ####[facility] Clinical [id number] [facility], [place] [phone] Sodium molar conc 132 mmol/L Low 137-145 [facility] Comment on above: Performed By: #### C BCDIF, PT, GBCHEM, GBTSH, LIPA, MG, GBHCV, HAVIGM, HBCAB, HBSAG, RPR ####[facility] Clinical [id number] [address]Bay[facility] Franklin [facility] Centerrdon, [place] [phone] Triglyceride mass conc 160 mg/dL High 35-150 [facility] Comment on above: Performed By: #### C BCDIF, PT, GBCHEM, GBTSH, LIPA, MG, GBHCV, HAVIGM, HBCAB, HBSAG, RPR ####[facility] Clinical [id number] [facility] [place] [phone] Urate mass conc 7.2 mg/dL Normal 3.5-8.5 [facility] Comment on above: Performed By: #### C BCDIF, PT, GBCHEM, GBTSH, LIPA, MG, GBHCV, HAVIGM, HBCAB, HBSAG, RPR ####[facility] Clinical [id number] [address]Bay[facility]errdon, [place] [phone] Urea nitrogen mass conc 15 mg/dL Normal 9-20 [facility] Comment on above: Performed By: #### C BCDIF, PT, GBCHEM, GBTSH, LIPA, MG, GBHCV, HAVIGM, HBCAB, HBSAG, RPR ####[facility] Clinical [id number] [address]Bay[facility] Franklin [facility] Centerrdon, [place] [phone] [facility] Hep C Abon 018 [facility] Hep C Ab Nonreactive Normal Nonreactive [facility] Comment on above: Performed By: #### C BCDIF, PT, GBCHEM, GBTSH, LIPA, MG, GBHCV, HAVIGM, HBCAB, HBSAG, RPR ####[facility] Clinical [id number] [facility], [place] [phone] [facility] TSHon 04-24-2018 Thyrotropin Qn 3.280 uU/mL Normal 0.465-4.680 [facility] Comment on above: Performed By: #### C BCDIF, PT, GBCHEM, GBTSH, LIPA, MG, GBHCV, HAVIGM, HBCAB, HBSAG, RPR ####[facility] [id number] [address]Bay[address] Franklin [facility] Centerrdon, [place] [phone] Hep A IgM Antibodyon 018 Hep A IgM Antibody Nonreactive Normal Nonreactive [facility] Comment on above: Performed By: #### C BCDIF, PT, GBCHEM, GBTSH, LIPA, MG, GBHCV, HAVIGM, HBCAB, HBSAG, RPR ####[facility] [id number] [address]Bay[address] [facility] Centerrdon, [place] [phone] Hep B Core Total Abon 2017 Hep B Core Total Ab Nonreactive Normal Nonreactive [facility] Comment on above: Performed By: #### C BCDIF, PT, GBCHEM, GBTSH, LIPA, MG, GBHCV, HAVIGM, HBCAB, HBSAG, RPR ####[facility] Clinical [id number] [facility], [place] [phone] Hep B Surf Antigenon 018 Hep B Surf Antigen Nonreactive Normal Nonreactive [facility] Comment on above: Performed By: #### C BCDIF, PT, GBCHEM, GBTSH, LIPA, MG, GBHCV, HAVIGM, HBCAB, HBSAG, RPR ####[facility] Clinical [id number] [facility], [place] [phone] Lipaseon 04-24-2018 Lipase enzyme act/vol 1540 U/L High 23-300 [facility] Comment on above: Performed By: #### C BCDIF, PT, GBCHEM, GBTSH, LIPA, MG, GBHCV, HAVIGM, HBCAB, HBSAG, RPR ####[facility] Clinical [id number] [place], [place] [phone] Magnesiumon 04-24-2018 Magnesium mass conc 2.0 mg/dL Normal 1.3-2.3 [facility] Comment on above: Performed By: #### C BCDIF, PT, GBCHEM, GBTSH, LIPA, MG, GBHCV, HAVIGM, HBCAB, HBSAG, RPR ####[facility] [id number] [place], [place] [phone] [employer] 04-24-2018 INR Coag RelTime (Bld) 1.0 {INR} Normal 0.6-1.1 [facility] Comment on above: Result Comment: The PT/INR [...] GBHCV, HAVIGM, HBCAB, HBSAG, RPR ####[facility] [id number] [place], [place] [id number] PT Sec 12.3 sec Normal 11.8-14.1 [facility] Comment on above: Performed By: #### C BCDIF, PT, GBCHEM, GBTSH, LIPA, MG, GBHCV, HAVIGM, HBCAB, HBSAG, RPR ####[facility] [id number] [place], [place] [phone] Vital Signs Date Time Vital Sign Value Performing Clinician Facility 01-13-2025 13:01-0400 Body height 182.9 cm Nilsa Lause [employer] Work Phone: [facility] 01-13-2025 13:01-0400 Body mass index (BMI) [Ratio] 20.21 kg/m2 Nilsa Lause [employer] Work Phone: [facility] 01-13-2025 13:01-0400 Body temperature 97.2 [degF] Nilsa Lause [employer] Work Phone: [facility] 01-13-2025 13:01-0400 Body weight 67.59 kg Nilsa Lause [employer] Work Phone: [facility] 01-13-2025 13:01-0400 Diastolic blood pressure 72 mm[Hg] Nilsa Lause [employer] Work Phone: [facility] 01-13-2025 13:01-0400 Heart rate 99 /min Nilsa Lause [employer] Work Phone: [facility] 01-13-2025 13:01-0400 Respiratory rate 16 /min Nilsa Lause [employer] Work Phone: [facility] 01-13-2025 13:01-0400 SaO2% (BldA) [Mass fraction] 95 % Nilsa Lause [employer] Work Phone: [facility] 01-13-2025 13:01-0400 Systolic blood pressure 128 mm[Hg] Nilsa Lause [employer] Work Phone: [facility] 09-15-2024 14:02-0400 Body height 182.9 cm Nilsa Lause [employer] Work Phone: [facility] 09-15-2024 14:02-0400 Body mass index (BMI) [Ratio] 21.24 kg/m2 Nilsa Lause [employer] Work Phone: [facility] 09-15-2024 14:02-0400 Body temperature 98.6 [degF] Nilsa Lause [employer] Work Phone: [facility] 09-15-2024 14:02-0400 Body weight 71.03 kg Nilsa Lause [employer] Work Phone: [facility] 09-15-2024 14:02-0400 Diastolic blood pressure 70 mm[Hg] Nilsa Lause [employer] Work Phone: [facility] 09-15-2024 14:02-0400 Heart rate 102 /min Nilsa Lause [employer] Work Phone: [facility] 09-15-2024 14:02-0400 Respiratory rate 20 /min Nilsa Lause [employer] Work Phone: [facility] 09-15-2024 14:02-0400 SaO2% (BldA) [Mass fraction] 97 % Nilsa Lause [employer] Work Phone: [facility] 09-15-2024 14:02-0400 Systolic blood pressure 122 mm[Hg] Nilsa Lause [employer] Work Phone: [facility] 07-14-2024 13:34-0500 Body height 182.88 cm [facility] 07-14-2024 13:34-0500 Body mass index (BMI) [Ratio] 20.5 kg/m2 [facility] 07-14-2024 13:34-0500 Body temperature 97.9 [degF] [facility] 07-14-2024 13:34-0500 Body weight 68.49 kg [facility] 07-14-2024 13:34-0500 Diastolic blood pressure 87 mm[Hg] [facility] 07-14-2024 13:34-0500 Heart rate 93 /min [facility] 07-14-2024 13:34-0500 Respiratory rate 16 /min [facility] 07-14-2024 13:34-0500 SaO2% (BldA) [Mass fraction] 99 % [facility] 07-14-2024 13:34-0500 Systolic blood pressure 148 mm[Hg] [facility] 06-17-2024 14:49-0500 Body height 182.9 cm Marilu Warchol [employer] Work Phone: [facility] 06-17-2024 14:49-0500 Body mass index (BMI) [Ratio] 20.7 kg/m2 Marilu Warchol [employer] Work Phone: [facility] 06-17-2024 14:49-0500 Body temperature 98.01 [degF] Marilu Warchol [employer] Work Phone: [facility] 06-17-2024 14:49-0500 Body weight 69.22 kg Marilu Warchol [employer] Work Phone: [facility] 06-17-2024 14:49-0500 Diastolic blood pressure 72 mm[Hg] Marilu Warchol [employer] Work Phone: [facility] 06-17-2024 14:49-0500 Heart rate 92 /min Marilu Warchol [employer] Work Phone: [facility] 06-17-2024 14:49-0500 SaO2% (BldA) [Mass fraction] 95 % Marilu Warchol [employer] Work Phone: [facility] 06-17-2024 14:49-0500 Systolic blood pressure 118 mm[Hg] Marilu Warchol [employer] Work Phone: [facility] 03-17-2024 13:54-0500 Body height 182.9 cm Marilu Sterlingchol [employer] Work Phone: [facility] 03-17-2024 13:54-0500 Body mass index (BMI) [Ratio] 19.94 kg/m2 Marilu Asherchol [employer] Work Phone: [facility] 03-17-2024 13:54-0500 Body temperature 98.01 [degF] Marilu Warchol [employer] Work Phone: [facility] 03-17-2024 13:54-0500 Body weight 66.68 kg Marilu Sterlingchol [employer] Work Phone: [facility] 03-17-2024 13:54-0500 Diastolic blood pressure 88 mm[Hg] Marilu Sterlingchol [employer] Work Phone: [facility] 03-17-2024 13:54-0500 Heart rate 60 /min Marilu Warchol [employer] Work Phone: [facility] 03-17-2024 13:54-0500 SaO2% (BldA) [Mass fraction] 99 % Marilu Sterlingchol [employer] Work Phone: [facility] 03-17-2024 13:54-0500 Systolic blood pressure 118 mm[Hg] Marilu Sterlingchol [employer] Work Phone: [facility] 02-18-2024 14:28-0400 Diastolic blood pressure 84 mm[Hg] MD Rylan Andrea Work Phone: [facility] 02-18-2024 14:28-0400 Heart rate 86 /min MD Rylan Andrea Work Phone: [facility] 02-18-2024 14:28-0400 Respiratory rate 16 /min MD Rylan Andrea Work Phone: [facility] 02-18-2024 14:28-0400 SaO2% (BldA) [Mass fraction] 100 % MD Rylan Andrea Work Phone: [facility] 02-18-2024 14:28-0400 Systolic blood pressure 124 mm[Hg] MD Rylan Andrea Work Phone: [facility] 02-18-2024 11:17-0400 Body height 182.88 cm MD Rylan Andrea Work Phone: [facility] 02-18-2024 11:17-0400 Body weight 62.59 kg MD Rylan Andrea Work Phone: [facility] 02-04-2024 13:42-0400 Body height 182.9 cm Marilu Warchol [employer] Work Phone: [facility] 02-04-2024 13:42-0400 Body mass index (BMI) [Ratio] 19.23 kg/m2 Marilu Warchol [employer] Work Phone: [facility] 02-04-2024 13:42-0400 Body temperature 97.59 [degF] Marilu Warchol [employer] Work Phone: [facility] 02-04-2024 13:42-0400 Body weight 64.32 kg Marilu Warchol [employer] Work Phone: [facility] 02-04-2024 13:42-0400 Diastolic blood pressure 72 mm[Hg] Marilu Warchol [employer] Work Phone: [facility] 02-04-2024 13:42-0400 Heart rate 100 /min Marilu Warchol [employer] Work Phone: [facility] 02-04-2024 13:42-0400 SaO2% (BldA) [Mass fraction] 97 % Marilu Warchol [employer] Work Phone: [facility] 02-04-2024 13:42-0400 Systolic blood pressure 130 mm[Hg] Marilu Warchol [employer] Work Phone: [facility] 01-31-2024 13:36-0400 Body height 182.88 cm [facility] 01-31-2024 13:36-0400 Body mass index (BMI) [Ratio] 18.5 kg/m2 [facility] 01-31-2024 13:36-0400 Body weight 61.94 kg [facility] 01-31-2024 13:36-0400 Diastolic blood pressure 76 mm[Hg] [facility] 01-31-2024 13:36-0400 Heart rate 97 /min [facility] 01-31-2024 13:36-0400 Systolic blood pressure 115 mm[Hg] [facility] 01-21-2024 13:53-0400 Body height 182.9 cm Marilu Warchol [employer] Work Phone: [facility] 01-21-2024 13:53-0400 Body mass index (BMI) [Ratio] 18.85 kg/m2 Marilu Warchol [employer] Work Phone: [facility] 01-21-2024 13:53-0400 Body temperature 98.2 [degF] Marilu Warchol [employer] Work Phone: [facility] 01-21-2024 13:53-0400 Body weight 63.05 kg Marilu Warchol [employer] Work Phone: [facility] 01-21-2024 13:53-0400 Diastolic blood pressure 78 mm[Hg] Marilu Warchol [employer] Work Phone: [facility] 01-21-2024 13:53-0400 Heart rate 108 /min Marilu Warchol [employer] Work Phone: [facility] 01-21-2024 13:53-0400 SaO2% (BldA) [Mass fraction] 98 % Marilu Warchol [employer] Work Phone: [facility] 01-21-2024 13:53-0400 Systolic blood pressure 132 mm[Hg] Marilu Warchol [employer] Work Phone: [facility] 01-15-2024 13:54-0400 Body height 182.9 cm Marilu Warchol [employer] Work Phone: [facility] 01-15-2024 13:54-0400 Body mass index (BMI) [Ratio] 19.12 kg/m2 Marilu Warchol [employer] Work Phone: [facility] 01-15-2024 13:54-0400 Body temperature 96.3 [degF] Marilu Warchol [employer] Work Phone: [facility] 01-15-2024 13:54-0400 Body weight 63.96 kg Marilu Warchol [employer] Work Phone: [facility] 01-15-2024 13:54-0400 Diastolic blood pressure 74 mm[Hg] Marilu Sterlingchol [employer] Work Phone: [facility] 01-15-2024 13:54-0400 Heart rate 99 /min Marilu Warchol [employer] Work Phone: [facility] 01-15-2024 13:54-0400 Respiratory rate 16 /min Marilu Sterlingchol [employer] Work Phone: [facility] 01-15-2024 13:54-0400 SaO2% (BldA) [Mass fraction] 97 % Marilu Sterlingchol [employer] Work Phone: [facility] 01-15-2024 13:54-0400 Systolic blood pressure 122 mm[Hg] Marilu Sterlingchol [employer] Work Phone: [facility] 01-10-2024 14:14-0400 Body height 182.9 cm Ophelia Erika DO Work Phone: [facility] 01-10-2024 14:14-0400 Body mass index (BMI) [Ratio] 18.85 kg/m2 Ophelia Erika DO Work Phone: [facility] 01-10-2024 14:14-0400 Body weight 63.05 kg Ophelia Erika DO Work Phone: [facility] 01-10-2024 14:14-0400 Diastolic blood pressure 84 mm[Hg] Ophelia Erika DO Work Phone: [facility] 01-10-2024 14:14-0400 Heart rate 74 /min Ophelia Erika DO Work Phone: [facility] 01-10-2024 14:14-0400 SaO2% (BldA) [Mass fraction] 88 % Ophelia Erika DO Work Phone: [facility] 01-10-2024 14:14-0400 Systolic blood pressure 133 mm[Hg] Ophelia Erika DO Work Phone: [facility] 12-25-2023 13:00-0400 Body height 182.9 cm Rylan Andrea MD Work Phone: [facility] 12-25-2023 13:00-0400 Body mass index (BMI) [Ratio] 18.44 kg/m2 Rylan Andrea MD Work Phone: [facility] 12-25-2023 13:00-0400 Body temperature 97.2 [degF] Rylan Andrea MD Work Phone: [facility] 12-25-2023 13:00-0400 Body weight 61.69 kg Rylan Andrea MD Work Phone: [facility] 12-25-2023 13:00-0400 Diastolic blood pressure 82 mm[Hg] Rylan Andrea MD Work Phone: [facility] 12-25-2023 13:00-0400 Heart rate 116 /min Rylan Andrea MD Work Phone: [facility] 12-25-2023 13:00-0400 Respiratory rate 16 /min Rylan Andrea MD Work Phone: [facility] 12-25-2023 13:00-0400 SaO2% (BldA) [Mass fraction] 93 % Rylan Andrea MD Work Phone: [facility] 12-25-2023 13:00-0400 Systolic blood pressure 110 mm[Hg] Rylan Andrea MD Work Phone: [facility] 12-21-2023 15:58-0400 Body height 182.9 cm VeriTainerng DO Work Phone: [facility] 12-21-2023 15:58-0400 Body mass index (BMI) [Ratio] 18.92 kg/m2 Ryan Castle Hilllong DO Work Phone: [facility] 12-21-2023 15:58-0400 Body temperature 97.81 [degF] Dynamics Expertlong DO Work Phone: [facility] 12-21-2023 15:58-0400 Body weight 63.28 kg [facility] 12-21-2023 15:58-0400 Diastolic blood pressure 78 mm[Hg] Ryan [facility]long [facility] 12-21-2023 15:58-0400 Heart rate 96 /min Ryan Marthalong [facility] 12-21-2023 15:58-0400 Respiratory rate 18 /min Ryan Marthalong DO Work Phone: [facility] [employer] 12-21-2023 15:58-0400 SaO2% (BldA) [Mass fraction] 92 % Ryan Thomaslong [facility] 12-21-2023 15:58-0400 Systolic blood pressure 108 mm[Hg] Ryan Thomaslong DO Work Phone: [facility] [employer] 06-29-2023 10:54-0500 Body temperature 97.9 [degF] MD Rylan Andrea Work Phone: [facility] 06-29-2023 10:54-0500 Body weight 69.85 kg MD Rylan Andrea Work Phone: [facility] 06-29-2023 10:54-0500 Diastolic blood pressure 88 mm[Hg] MD Rylan Andrea Work Phone: [facility] 06-29-2023 10:54-0500 Heart rate 88 /min MD Rylan nAdrea Work Phone: [facility] 06-29-2023 10:54-0500 Respiratory rate 20 /min MD Rylan Andrea Work Phone: [facility] 06-29-2023 10:54-0500 SaO2% (BldA) [Mass fraction] 97 % MD Rylan Andrea Work Phone: [facility] 06-29-2023 10:54-0500 Systolic blood pressure 140 mm[Hg] MD Rylan Andrea Work Phone: [facility] 12-25-2022 11:05-0400 Body temperature 97.7 [degF] MD Rylan Andrea Work Phone: [facility] 12-25-2022 11:05-0400 Body weight 66.95 kg MD Rylan Andrea Work Phone: [facility] 12-25-2022 11:05-0400 Diastolic blood pressure 85 mm[Hg] MD Rylan Andrea Work Phone: [facility] 12-25-2022 11:05-0400 Heart rate 94 /min MD Rylan Andrea Work Phone: [facility] 12-25-2022 11:05-0400 Respiratory rate 18 /min MD Rylan Andrea Work Phone: [facility] 12-25-2022 11:05-0400 SaO2% (BldA) [Mass fraction] 97 % MD Rylan Andrea Work Phone: [facility] 12-25-2022 11:05-0400 Systolic blood pressure 136 mm[Hg] MD Rylan Andrea Work Phone: [facility] 11-01-2022 10:41-0400 Body temperature 97.6 [degF] MD Rylan Andrea Work Phone: [facility] 11-01-2022 10:41-0400 Body weight 68.26 kg MD Rylan Andrea Work Phone: [facility] 11-01-2022 10:41-0400 Diastolic blood pressure 82 mm[Hg] MD Rylan Andrea Work Phone: [facility] 11-01-2022 10:41-0400 Heart rate 103 /min MD Rylan Andrea Work Phone: [facility] 11-01-2022 10:41-0400 Respiratory rate 18 /min MD Rylan Andrea Work Phone: [facility] 11-01-2022 10:41-0400 SaO2% (BldA) [Mass fraction] 99 % MD Rylan Andrea Work Phone: [facility] 11-01-2022 10:41-0400 Systolic blood pressure 121 mm[Hg] MD Rylan Andrea Work Phone: [facility] 10-26-2022 12:05-0400 Body height 182.88 cm MD Rylan Andrea Work Phone: [facility] 10-26-2022 12:05-0400 Body temperature 97.6 [degF] MD Rylan Andrea Work Phone: [facility] 10-26-2022 12:05-0400 Body weight 69 kg MD Rylan Andrea Work Phone: [facility] 10-26-2022 12:05-0400 Diastolic blood pressure 77 mm[Hg] MD Rylan Andrea Work Phone: [facility] 10-26-2022 12:05-0400 Heart rate 100 /min MD Rylan Andrea Work Phone: [facility] 10-26-2022 12:05-0400 Respiratory rate 20 /min MD Rylan Andrea Work Phone: [facility] 10-26-2022 12:05-0400 SaO2% (BldA) [Mass fraction] 98 % MD Rylan Andrea Work Phone: [facility] 10-26-2022 12:05-0400 Systolic blood pressure 120 mm[Hg] MD Rylan Andrea Work Phone: [facility] 09-19-2022 09:33-0400 Body weight 70.39 kg MD Rylan Andrea Work Phone: [facility] 09-19-2022 09:33-0400 Diastolic blood pressure 85 mm[Hg] MD Rylan Andrea Work Phone: [facility] 09-19-2022 09:33-0400 Heart rate 85 /min MD Rylan Andrea Work Phone: [facility] 09-19-2022 09:33-0400 Respiratory rate 20 /min MD Rylan Andrea Work Phone: [facility] 09-19-2022 09:33-0400 SaO2% (BldA) [Mass fraction] 97 % MD Rylan Andrea Work Phone: [facility] 09-19-2022 09:33-0400 Systolic blood pressure 128 mm[Hg] MD Rylan Andrea Work Phone: [facility] 09-04-2022 11:26-0400 Body temperature 98.6 [degF] MD Rylna Andrea Work Phone: [facility] 06-22-2022 13:07-0500 Body height 182.88 cm MD Rylan Andrea Work Phone: [facility] 06-22-2022 13:07-0500 Body temperature 98 [degF] MD Rylan Andrea Work Phone: [facility] 06-22-2022 13:07-0500 Body weight 73.2 kg MD Rylan Andrea Work Phone: [facility] 06-22-2022 13:07-0500 Diastolic blood pressure 88 mm[Hg] MD Rylan Andrea Work Phone: [facility] 06-22-2022 13:07-0500 Heart rate 112 /min MD Rylan Andrea Work Phone: [facility] 06-22-2022 13:07-0500 Respiratory rate 20 /min MD Rylan Andrea Work Phone: [facility] 06-22-2022 13:07-0500 SaO2% (BldA) [Mass fraction] 99 % MD Rylan Andrea Work Phone: [facility] 06-22-2022 13:07-0500 Systolic blood pressure 137 mm[Hg] MD Rylan Andrea Work Phone: [facility] 06-17-2022 12:00-0500 Body temperature 98.1 [degF] MD Rylan Andrea Work Phone: [facility] 06-17-2022 12:00-0500 Diastolic blood pressure 91 mm[Hg] MD Rylan Andrea Work Phone: [facility] 06-17-2022 12:00-0500 Heart rate 94 /min MD Rylan Andrea Work Phone: [facility] 06-17-2022 12:00-0500 Respiratory rate 20 /min MD Rylan Andrea Work Phone: [facility] 06-17-2022 12:00-0500 SaO2% (BldA) [Mass fraction] 97 % MD Rylan Andrea Work Phone: [facility] 06-17-2022 12:00-0500 Systolic blood pressure 142 mm[Hg] MD Rylan Andrea Work Phone: [facility] 06-16-2022 09:51-0500 Body height 182.88 cm MD Rylan Andrea Work Phone: [facility] 06-16-2022 09:51-0500 Body mass index (BMI) [Ratio] 20.2 kg/m2 MD Rylan Andrea Work Phone: [facility] 06-16-2022 09:51-0500 Body weight 67.9 kg MD Rylan Andrea Work Phone: [facility] 06-15-2022 12:00-0500 Body height 185.42 cm Rachid Chase Other [employer] [facility] [employer] Other 06-15-2022 12:00-0500 Body mass index (BMI) [Ratio] 19.63 kg/m2 Rachid Chase Other [employer] Other 06-15-2022 12:00-0500 Body temperature 97 [degF] Celsoal Chaban Other [employer] Other 06-15-2022 12:00-0500 Body weight 67.5 kg Rachid Blandban Other [employer] Other 06-15-2022 12:00-0500 Diastolic blood pressure 82 mm[Hg] Rachid Chaban Other [employer] Other 06-15-2022 12:00-0500 Respiratory rate 20 /min Rachid Blandban Other [employer] Other 06-15-2022 12:00-0500 SaO2% (BldA) [Mass fraction] 98 % Rachid Blandban Other [employer] Other 06-15-2022 12:00-0500 Systolic blood pressure 114 mm[Hg] Rachid Chaban Other [employer] Other 05-31-2022 15:30-0500 Body height 185.42 cm Rachid Blandban Other [employer] Other 05-31-2022 15:30-0500 Body mass index (BMI) [Ratio] 19.92 kg/m2 Rachid Blandban Other [employer] Other 05-31-2022 15:30-0500 Body temperature 97.6 [degF] Celsoal Chaban Other [employer] Other 05-31-2022 15:30-0500 Body weight 68.49 kg Rachid Blandban Other [employer] Other 05-31-2022 15:30-0500 Diastolic blood pressure 80 mm[Hg] Rachid Blandban Other [facility] [employer] [facility] Other 05-31-2022 15:30-0500 Respiratory rate 20 /min Rachid Blandban Other [facility] [employer] [facility] Other 05-31-2022 15:30-0500 SaO2% (BldA) [Mass fraction] 98 % Rachid Blandban Other [facility] [employer] [facility] Other 05-31-2022 15:30-0500 Systolic blood pressure 122 mm[Hg] Rachid Blandban Other [facility] [employer] [facility] Other 04-21-2022 09:50-0500 Diastolic blood pressure 74 mm[Hg] MD Rylan Andrea Work Phone: [facility] 04-21-2022 09:50-0500 Heart rate 80 /min MD Rylan Andrea Work Phone: [facility] 04-21-2022 09:50-0500 Respiratory rate 18 /min MD Rylan Andrea Work Phone: [facility] 04-21-2022 09:50-0500 SaO2% (BldA) [Mass fraction] 99 % MD Rylan Andrea Work Phone: [facility] 04-21-2022 09:50-0500 Systolic blood pressure 111 mm[Hg] MD Rylan Andrea Work Phone: [facility] 04-21-2022 08:21-0500 Body height 182.88 cm MD Rylan Andrea Work Phone: [facility] 04-21-2022 08:21-0500 Body weight 70.3 kg MD Rylan Andrea Work Phone: [facility] 04-18-2022 13:59-0500 Diastolic blood pressure 82 mm[Hg] MD Rylan Andrea Work Phone: [facility] 04-18-2022 13:59-0500 Heart rate 99 /min MD Rylan Andrea Work Phone: [facility] 04-18-2022 13:59-0500 Respiratory rate 20 /min MD Rylan Andrea Work Phone: [facility] 04-18-2022 13:59-0500 SaO2% (BldA) [Mass fraction] 99 % MD Rylan Andrea Work Phone: [facility] 04-18-2022 13:59-0500 Systolic blood pressure 117 mm[Hg] MD Rylan Andrea Work Phone: [facility] 04-18-2022 12:41-0500 Body height 185.42 cm MD Rylan Andrae Work Phone: 5(113)[phone] [place] [address] 04-18-2022 12:41-0500 Body weight 72.12 kg MD Rylan Andrea Work Phone: [facility] 04-14-2022 11:23-0500 Body temperature 98.3 [degF] MD Rylan Andrea Work Phone: [facility] 04-14-2022 11:23-0500 Body weight 70.3 kg MD Rylan Andrea Work Phone: [facility] 04-14-2022 11:23-0500 Diastolic blood pressure 93 mm[Hg] MD Rylan Andrea Work Phone: [facility] 04-14-2022 11:23-0500 Heart rate 95 /min MD Rylan Andrea Work Phone: [facility] 04-14-2022 11:23-0500 Respiratory rate 20 /min MD Rylan Andrea Work Phone: [facility] 04-14-2022 11:23-0500 SaO2% (BldA) [Mass fraction] 100 % MD Rylan Andrea Work Phone: [facility] 04-14-2022 11:23-0500 Systolic blood pressure 130 mm[Hg] MD Rylan Andrea Work Phone: [facility] 04-11-2022 16:03-0500 Body temperature 97.5 [degF] MD Rylan Andrea Work Phone: [facility] 04-11-2022 16:03-0500 Diastolic blood pressure 88 mm[Hg] MD Rylan Andrea Work Phone: [facility] 04-11-2022 16:03-0500 Heart rate 89 /min MD Rylan Andrea Work Phone: [facility] 04-11-2022 16:03-0500 Respiratory rate 15 /min MD Rylan Andrea Work Phone: [facility] 04-11-2022 16:03-0500 SaO2% (BldA) [Mass fraction] 97 % MD Rylan Andrea Work Phone: [facility] 04-11-2022 16:03-0500 Systolic blood pressure 125 mm[Hg] MD Rylan Andrea Work Phone: [facility] 04-11-2022 05:07-0500 Body weight 67.7 kg MD Rylan Andrea Work Phone: [facility] 04-10-2022 15:56-0500 Body height 182.88 cm MD Rylan Andrea Work Phone: [facility] 04-10-2022 15:56-0500 Body temperature 98.2 [degF] MD Rylan Andrea Work Phone: [facility] 04-10-2022 15:56-0500 Body weight 66.7 kg MD Rylan Andrea Work Phone: [facility] 04-10-2022 15:56-0500 Diastolic blood pressure 99 mm[Hg] MD Rylan Andrea Work Phone: 2(773)[phone] [place] [address] 04-10-2022 15:56-0500 Heart rate 99 /min MD Rylan Andrea Work Phone: [facility] 04-10-2022 15:56-0500 Respiratory rate 20 /min MD Rylan Andrea Work Phone: [facility] 04-10-2022 15:56-0500 SaO2% (BldA) [Mass fraction] 98 % MD Rylan Andrea Work Phone: [facility] 04-10-2022 15:56-0500 Systolic blood pressure 148 mm[Hg] MD Rylan Andrea Work Phone: [facility] 02-27-2022 14:35-0400 Body height 182.88 cm MD Rylan Andrea Work Phone: 3(471)[phone] [place] [address] 02-27-2022 14:35-0400 Body temperature 97.7 [degF] MD Rylan Andrea Work Phone: [facility] 02-27-2022 14:35-0400 Body weight 70.35 kg MD Rylan Andrea Work Phone: [facility] 02-27-2022 14:35-0400 Diastolic blood pressure 90 mm[Hg] MD Rylan Andrea Work Phone: [facility] 02-27-2022 14:35-0400 Heart rate 80 /min MD Rylan Andrea Work Phone: [facility] 02-27-2022 14:35-0400 Respiratory rate 20 /min MD Rylan Andrea Work Phone: [facility] 02-27-2022 14:35-0400 SaO2% (BldA) [Mass fraction] 99 % MD Rylan Andrea Work Phone: [facility] 02-27-2022 14:35-0400 Systolic blood pressure 138 mm[Hg] MD Rylan Andrea Work Phone: [facility] 09-13-2021 16:00-0400 Body height 185.42 cm Anita Lincoln Other [employer] Other 09-13-2021 16:00-0400 Body mass index (BMI) [Ratio] 20.45 kg/m2 Anita Lincoln Other [employer] Other 09-13-2021 16:00-0400 Body temperature 99.4 [degF] Anita Lincoln Other [employer] Other 09-13-2021 16:00-0400 Body weight 70.31 kg Anita Lincoln Other [employer] Other 09-13-2021 16:00-0400 Diastolic blood pressure 82 mm[Hg] Anita Lincoln Other [employer] Other 09-13-2021 16:00-0400 Respiratory rate 18 /min Anita Lincoln Other [employer] Other 09-13-2021 16:00-0400 SaO2% (BldA) [Mass fraction] 97 % Anita Lincoln Other [employer] Other 09-13-2021 16:00-0400 Systolic blood pressure 160 mm[Hg] Anita Lincoln Other [employer] Other 09-08-2021 10:09-0400 Diastolic blood pressure 78 mm[Hg] Rylan Flaherty Andrea Work Phone: [facility] 250 DO Work Phone: 09-08-2021 10:09-0400 Systolic blood pressure 118 mm[Hg] Rylan Flaherty Andrea Work Phone: [facility] 250 DO Work Phone: 09-08-2021 10:05-0400 Body height 182.88 cm Rylan Flaherty [employer] Work Phone: [facility] 250 DO Work Phone: 09-08-2021 10:05-0400 Body mass index (BMI) [Ratio] 21.16 kg/m2 Rylan Flaherty [employer] Work Phone: [facility] 250 DO Work Phone: 09-08-2021 10:05-0400 Body surface area Derived from formula 1.92 m2 Rylan Flaherty [employer] Work Phone: [facility] 250 DO Work Phone: 09-08-2021 10:05-0400 Body weight 70.76 kg Rylan Flaherty [employer] Work Phone: [facility] 250 DO Work Phone: 09-08-2021 10:05-0400 Diastolic blood pressure 76 mm[Hg] Rylan Flaherty [employer] Work Phone: [facility] 250 DO Work Phone: 09-08-2021 10:05-0400 Heart rate 96 /min Rylan Flaherty [employer] Work Phone: [facility] 250 DO Work Phone: 09-08-2021 10:05-0400 Systolic blood pressure 120 mm[Hg] Rylan Flaherty [employer] Work Phone: [facility] 250 DO Work Phone: 09-08-2021 10:05-0400 20 1 Rylan Flaherty [employer] Work Phone: [facility] 250 DO Work Phone: Comment on above: PHQ-9 TS Encounters Encounter Date Encounter Type Care Provider Facility Start: 01-13-2025 End: 01-13-2025 Assay of hemosiderin, quant Nilsa Solomon [employer] Work Phone: [facility] Start: 01-13-2025 End: 01-13-2025 Bamboo flowsheet Nilsa Castorenause STAIN MAKER Work Phone: [facility] Start: 01-13-2025 End: 01-13-2025 Bamboo flowsheet Nilsa Castorenause STAIN MAKER Work Phone: [facility] Start: 01-13-2025 End: 01-13-2025 Office outpatient visit 25 minutes Nilsa Solomon [employer] Work Phone: [facility] Comment on above: Acute non-recurrent frontal sinusitis (Primary Dx); 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 ; Chronic obstructive pulmonary disease, unspecified COPD type (HCC); Small cell lung cancer in adult (HCC); History of primary malignant neoplasm of bronchus; Shortness of breath; Routine general medical examination at health care facility Start: 01-13-2025 End: 01-13-2025 ambulatory NILSA SOLOMON Not Available Start: 12-23-2024 ambulatory Rylan La Farge Facility:[facility] Start: 11-26-2024 End: 11-26-2024 Clinisync Result Encounter Generic External Data Provider [facility] External Department Unsolicited Start: 11-26-2024 End: 11-26-2024 Clinisync Result Encounter Generic External Data Provider [facility] External Department Unsolicited Start: 09-15-2024 End: 09-15-2024 ambulatory NILSA CASTORENAUSE Not Available Start: 09-15-2024 End: 09-15-2024 Office outpatient visit 25 minutes Nilsa Solomon ST[employer]KER Work Phone: 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); Severe episode of recurrent major depressive disorder, without psychotic features (HCC) (CMS/HCC) Start: 07-14-2024 End: 07-14-2024 Bamboo flowsheet Karen Fernandez MD Work Phone: [facility] Start: 07-14-2024 End: 07-14-2024 Bamboo flowsheet Karen Fernandez MD Work Phone: [facility] Start: 07-14-2024 End: 07-14-2024 ambulatory [facility] Work Phone: Start: 07-14-2024 End: 07-14-2024 [facility] Work Phone: Start: 07-14-2024 End: 07-14-2024 Postop follow up visit related to original px Karen Fernandez MD Work Phone: [facility] Comment on above: Encounter for remova l of sutures (Primary Dx) Start: 07-14-2024 End: 07-14-2024 ambulatory KAREN A PETBEBAI Not Available Start: 07-11-2024 End: 07-11-2024 External Result Encounter Estela Varma DO Work Phone: [facility] External Department Unsolicited Start: 07-11-2024 End: 07-11-2024 External Result Encounter Estela Varma DO Work Phone: [facility] External Department Unsolicited Start: 07-08-2024 End: 07-08-2024 Clinisync Result Encounter Generic External Data Provider [facility] External Department Unsolicited Start: 07-08-2024 End: 07-08-2024 Clinisync Result Encounter Generic External Data Provider [facility] External Department Unsolicited Start: 07-07-2024 End: 07-07-2024 Patient encounter procedure Karen Fernandez MD Work Phone: [facility] Comment on above: Epidermal inclusion cyst (Primary Dx); Other specified erythematous conditions Start: 07-07-2024 End: 07-07-2024 ambulatory KAREN A PETITTI Not Available Start: 06-19-2024 End: 06-19-2024 Clinisync Result Encounter Generic External Data Provider [facility] External Department Unsolicited Start: 06-19-2024 End: 06-19-2024 Clinisync Result Encounter Generic External Data Provider [facility] External Department Unsolicited Start: 06-17-2024 End: 06-17-2024 Office outpatient visit 25 minutes Marilu Bonner [employer] Work Phone: [facility] Comment on above: Primary insomnia (Pr imary Dx); Primary pulmonary hypertension (CMS/HCC); Hair loss; Dry skin; 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) Start: 06-17-2024 End: 06-17-2024 ambulatory MARILU BONNER Not Available Start: 06-17-2024 End: 06-17-2024 Bamboo flowsheet Marilu Bonner [employer] Work Phone: [facility] Start: 06-17-2024 End: 06-17-2024 Bamboo flowsheet Marilu Bonner ST[employer]ER Work Phone: [facility] Start: 06-16-2024 End: 06-16-2024 Office outpatient new 30 minutes Karen Fernandez MD Work Phone: [facility] Comment on above: EIC (epidermal inclu sergei cyst) (Primary Dx); Other specified erythematous conditions Start: 06-16-2024 End: 06-16-2024 ambulatory KAREN FERNANDEZ Not Available Start: 06-16-2024 End: 06-16-2024 Bamboo flowsheet Karen Fernandez MD Work Phone: [facility] Start: 06-16-2024 End: 06-16-2024 Bamboo flowsheet Karen Fernandez MD Work Phone: [facility] Start: 06-03-2024 End: 06-03-2024 Clinisync Result Encounter Generic External Data Provider [facility] External Department Unsolicited Start: 06-03-2024 End: 06-03-2024 Clinisync Result Encounter Generic External Data Provider [facility] External Department Unsolicited Start: 03-17-2024 End: 03-17-2024 Bamboo flowsheet Marilu Bonner [employer] Work Phone: [facility] Start: 03-17-2024 End: 03-17-2024 Bamboo flowsheet Marilu Bonner [employer] Work Phone: [facility] Start: 03-17-2024 End: 03-17-2024 Office outpatient visit 25 minutes Marilu Bonner [employer] Work Phone: [facility] Comment on above: Chronic obstructive pulmonary [...] Andrea Work Phone: [facility] Gastroenterology Work Phone: Start: 02-18-2024 End: 02-18-2024 Admission to same day surgery center MD Rylan Andrea Work Phone: [facility]Digestive [facility] Work Phone: Start: 02-18-2024 End: 02-18-2024 ambulatory MD Rylan Andrea Work Phone: [facility] Work Phone: Start: 02-04-2024 End: 02-04-2024 Office outpatient visit 25 minutes Marilu Bonner [employer]KER Work Phone: [employer] [facility] Comment on above: Need for follow-up c are after discharge (Primary Dx); Current moderate episode of major depressive disorder without prior episode (HCC) (CMS/HCC) Start: 02-04-2024 End: 02-04-2024 ambulatory MARILU BONNER Not Available Start: 01-31-2024 End: 01-31-2024 ambulatory [facility] Work Phone: Start: 01-31-2024 End: 01-31-2024 Patient encounter procedure [facility] Gastroenterology Work Phone: Start: 01-21-2024 End: 01-21-2024 Patient encounter procedure Marilu Bonner [employer] Work Phone: [facility] Work Phone: Start: 01-21-2024 End: 01-21-2024 Periodic preventive med est patient 40-64yrs Marilu Bonner [employer] Work Phone: [facility] Comment on above: Encounter for annual wellness visit (AWV) in Medicare patient (Primary Dx) Start: 01-21-2024 End: 01-21-2024 ambulatory MARILU BONNER Not Available Start: 01-15-2024 End: 01-15-2024 Bamboo flowsheet Marilu Bonner STAIN MAKER Work Phone: [facility] Start: 01-15-2024 End: 01-15-2024 Bamboo flowsheet Marilu Bonner ST[employer] MA[employer]ER Work Phone: [facility] Start: 01-15-2024 End: 01-15-2024 Transitional care manage srvc 14 day discharge Marilu Bonner [employer] Work Phone: [facility] Comment on above: Need for follow-up c are after discharge (Primary Dx); Primary insomnia; Gastroesophageal reflux disease without esophagitis; Hx SBO; Constipation, unspecified constipation type; Mass of chin Start: 01-15-2024 End: 01-15-2024 ambulatory MARILU BONNER Not Available Start: 01-11-2024 ambulatory Manpreet SALEEM Facility:[facility] Start: 01-10-2024 End: 01-10-2024 Office outpatient new 45 minutes Ophelia James DO Work Phone: [facility] Comment on above: Chronic obstructive pulmonary disease, unspecified COPD type (CMS/HCC) (Primary Dx); Small pleural effusion; Small cell lung cancer in adult (CMS/HCC); Shortness of breath Start: 01-09-2024 End: 01-09-2024 ambulatory Manpreet SALEEM Facility:[id number] Start: 01-07-2024 Non-patient / Non-visit [facility] Work Phone: Start: 12-25-2023 End: 12-25-2023 Office outpatient visit 25 minutes Rylan Andrea MD Work Phone: [facility] Comment on above: Essential hypertensi on (CMS/HCC) (Primary Dx); Burning with urination; Urinary tract infection with hematuria, site unspecified; Gastroesophageal reflux disease without esophagitis; 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); Nausea; Generalized abdominal pain; Primary pulmonary hypertension ([facility]/HCC) Start: 12-21-2023 End: 12-22-2023 Continuing Care Ryan Kang DO Work Phone: [facility] Comment on above: Thoracic outlet synd james (Primary Dx); Small cell lung cancer in adult ([facility]-HCC); Essential hypertension; Adult failure to thrive; Costochondral junction syndrome; Hyposmolality syndrome; Severe episode of recurrent major depressive disorder, without psychotic features ([facility]-HCC); Insomnia, unspecified type; Hypothyroidism, unspecified type Start: 12-16-2023 End: 12-20-2023 Non-patient / Non-visit [facility] Work Phone: Start: 12-13-2023 End: 12-20-2023 Non-patient / Non-visit [facility] Work Phone: Start: 09-11-2023 ambulatory RYLAN ANDREA [facility] Start: 06-29-2023 End: 06-29-2023 ambulatory MD Rylan Andrea Work Phone: [facility] Work Phone: Start: 06-29-2023 End: 06-29-2023 Patient encounter procedure MD Rylan Andrea Work Phone: [facility] Ambulatory Work Phone: Start: 06-29-2023 Registered Recurring MD Rylan Andrea Work Phone: [facility] Acute Work Phone: Start: 06-25-2023 External Result Encounter Estela Varma DO Work Phone: [facility] External Department Unsolicited Start: 06-25-2023 External Result Encounter Estela Varma DO Work Phone: [facility] External Department Unsolicited Start: 04-05-2023 End: 04-28-2024 Orders Only Rylan Andrea MD Work Phone: [facility] Start: 12-25-2022 End: 12-25-2022 ambulatory MD Rylan Andrea Work Phone: [facility] Work Phone: Start: 12-25-2022 End: 12-25-2022 Registered Recurring MD Rylan Andrea Work Phone: [facility] Work Phone: Start: 11-01-2022 End: 11-01-2022 ambulatory MD Rylan Andrea Work Phone: [facility] Work Phone: Start: 11-01-2022 End: 11-01-2022 Registered Recurring MD Rylan Andrea Work Phone: [facility] Work Phone: Start: 10-26-2022 End: 10-26-2022 Emergency department patient visit MD Rylan Andrea Work Phone: [facility] Ctr-Emergency Room Work Phone: Start: 10-26-2022 Registered Recurring MD Rylan Andrea Work Phone: [facility] Work Phone: Start: 10-18-2022 End: 10-18-2022 ambulatory MD Rylan Andrea Work Phone: [facility] Work Phone: Start: 10-18-2022 End: 10-18-2022 Patient encounter procedure MD Rylan Andrea Work Phone: [facility]-XRay [facility] Work Phone: Start: 10-10-2022 End: 10-10-[address] RYLAN ANDREA Facility:[facility] Start: 10-03-2022 End: 10-03-[address] RYLAN ANDREA Facility:[facility] Start: 09-19-2022 End: 09-19-2022 ambulatory MD Rylan Andrea Work Phone: [facility] Work Phone: Start: 09-19-2022 End: 09-19-2022 Registered Recurring MD Rylan Andrea Work Phone: [facility] Work Phone: Start: 09-19-2022 Registered Recurring MD Rylan Andrea Work Phone: [facility] Work Phone: Start: 09-11-2022 End: 09-11-[address] RYLAN ANDREA Facility:[facility] Start: 09-08-2022 End: 09-08-[address] RYLAN ANDREA Facility:[facility] Start: 09-04-2022 End: 09-04-[address] RYLAN ANDREA Facility:[facility] Start: 09-01-2022 End: 09-02-[address] RYLAN ANDREA Facility:[facility] Start: 08-27-2022 End: 08-27-[address] MELANI IBRAHIM Facility:[facility] Start: 06-22-2022 End: 06-22-2022 ambulatory MD Rylan Andrea Work Phone: [facility] Work Phone: Start: 06-22-2022 End: 06-22-2022 Registered Recurring MD Rylan Andrea Work Phone: [facility] Work Phone: Start: 06-18-2022 End: 06-18-[address] JESSE RAMOS Facility:[facility] Start: 06-16-2022 End: 06-17-2022 Admission to same day surgery center MD Rylan Andrea Work Phone: [facility]-Surgery Center [facility] [place] Start: 06-15-2022 Office outpatient visit 25 minutes Kamjeramy Blandchinyere [facility] Start: 06-15-2022 End: 06-15-2022 ambulatory MD Rylan Andrea Work Phone: [facility] Work Phone: Start: 06-15-2022 End: 06-15-2022 Patient encounter procedure MD Rylan Andrea Work Phone: [facility] Dcf-Qqr[facility] Testing Work Phone: Start: 06-01-2022 End: 06-01-2022 ambulatory MD Rylan Andrea Work Phone: [facility] Ctr Work Phone: Start: 06-01-2022 End: 06-01-2022 Patient encounter procedure MD Rylan Andrea Work Phone: [facility] Ctr-CT Scan [facility] [place] Work Phone: Start: 05-31-2022 End: 05-31-2022 ambulatory Rachid Chaes Other [employer] Other Start: 05-31-2022 Office outpatient ne w 45 minutes Kamal Chaban [facility] Start: 04-21-2022 End: 04-21-2022 Admission to same day surgery center MD Rylan Andrae Work Phone: [facility] Ctr-Ultrasound [facility] [place] Start: 04-21-2022 End: 04-21-2022 ambulatory MD Rylan Andrea Work Phone: [facility] C[facility] Work Phone: Start: 04-18-2022 End: 04-18-2022 Admission to same day surgery center MD Rylan Andrea Work Phone: [facility] Ctr-Ultrasound [facility] [place] Start: 04-18-2022 End: 04-18-2022 ambulatory MD Rylan Andrea Work Phone: [facility] Ctr Work Phone: Start: 04-14-2022 End: 04-14-2022 ambulatory MD Rylan Andrea Work Phone: [facility] C[facility] Work Phone: Start: 04-14-2022 End: 04-14-2022 Registered Recurring MD Rylan Andrea Work Phone: [facility] Ctr-Cancer Center Start: 04-14-2022 Registered Recurring MD Rylan Andrea Work Phone: [facility]-Cancer Center Start: 04-10-2022 End: 04-11-2022 Evaluation and management of inpatient MD Rylan Andrea Work Phone: [facility] Ctr-[facility] [place] [facility] Start: 04-10-2022 observation encounter MD Rylan Andrea Work Phone: [facility] C[facility] Work Phone: Start: 04-10-2022 Registered Recurring MD Rylan Andrea Work Phone: [facility]-Cancer Center Start: 02-27-2022 End: 02-27-2022 ambulatory MD Rylan Andrea Work Phone: [facility] Ctr Work Phone: Start: 02-27-2022 End: 02-27-2022 Registered Recurring MD Rylan Andrea Work Phone: [facility] Ctr-Cancer Center Start: 11-29-2021 ambulatory Rylan Ortiz ity: Start: 11-23-2021 End: 11-24-[address] MARCE PAGAN Facility:[facility] Start: 09-13-2021 Chart Update Rylan Andrea Work Phone: [facility] 250 DO Work Phone: Start: 09-13-2021 End: 09-13-2021 ambulatory Anita Lincoln Other [facility] [employer] Other Start: 09-13-2021 Office outpatient visit 25 minutes Anita Lincoln [facility] Palliative Care Start: 09-09-2021 ambulatory Rylan Andrea Facil [id number] Start: 09-09-2021 [facility], Provider: Lukas Oliveira, Status: Pen, Time: 1:00 PM Rylan Flaherty Andrea Work Phone: [facility] 250 DO Work Phone: Start: 09-08-2021 Office consultation new/estab patient 80 min Rylan Krystina Andrea Work Phone: [facility] 250 DO Work Phone: Start: 09-08-2021 ambulatory Estela Varma Facility: Start: 08-06-2020 End: 08-07-2020 Patient encounter procedure [facility] Start: 04-24-2018 End: 05-14-2018 Patient encounter procedure CUBA Flaherty [facility] Procedures Date Procedure Procedure Detail Performing Clinician Start: 11-26-2024 ALL T3 FREE Generic External Data Provider Start: 11-26-2024 ALL THYROID STIM HORMONE Generic Externa l Data Provider Start: 07-11-2024 Complete blood count with white cell differential, automated Estela Varma DO Work Phone: Start: 07-11-2024 Comprehensive metabolic panel Estela Varma DO Work Phone: Start: 07-08-2024 Us soft tissue head & neck real time imge docm Generic External Data Provider Start: 07-07-2024 SKIN REPAIR Karen Fernandez MD Work Phone: Start: 07-07-2024 SKIN EXCISION Karen Fernandez MD Work Phone: Start: 06-19-2024 ALL CBC WITH AUTO DIFF Generic External Data Provider Start: 06-03-2024 METRO IRON AND TIBC Generic External Data Provider Start: 02-18-2024 Esophagogastroduodenoscopy MD Rylan Lawrence er Work Phone: Start: 02-18-2024 Colonoscopy Marilu Bonner [employer] Work Phone: Start: 12-25-2023 Urnls dip stick/tablet rgnt non-auto w/o micrscp Rylan Andrea MD Work Phone: Start: 12-25-2023 Culture bacterial quanttative colony count urine Rylan Andrea MD Work Phone: Start: 06-25-2023 Carcinoembryonic antigen cea Estela taveras DO Work Phone: Comment on above: Serial tumor marker results determined b y assays using different manufacturers or methods may not be comparable. [facility] warp tier and method: [employer] UNICEL DXI, 2 SITE IMMUNOENZYMATIC SANDWICH ASSAY. Start: 06-25-2023 Positron emission tomography with computed tomography MD Rylan Andrea Work Phone: Start: 06-25-2023 Carcinoembryonic antigen cea Estela Varma DO Work Phone: Start: 06-25-2023 Complete blood count with white cell differential, automated Estela Varma DO Work Phone: Start: 06-25-2023 GLUCOSE POCT GLUCOMETERS Estela Varma DO Work Phone: Start: 03-29-[address] M[address]LMALONIC ACID [...] CT of thorax with contrast MD Rylan pierce Work Phone: Start: 08-18-2021 CT of head with contrast MD Rylan Andrea Work Phone: Start: 04-01-2021 Computed tomography of abdomen and pelvis with contrast MD Rylan Andrea Work Phone: Start: 04-01-2021 CT of head with contrast MD Rylan Andrea Work Phone: Start: 04-01-2021 CT of thorax with contrast MD Rylan pierce Work Phone: Start: 01-31-2021 Plain chest X-ray MD Rylan Andrea Work Phone: Start: 12-03-2020 CT of head with contrast MD Rylan Andrea Work Phone: Start: 12-03-2020 CT of thorax with contrast MD Rylan pierce Work Phone: Start: 09-08-2020 CT of thorax with contrast MD Rylan pierce Work Phone: Start: 07-20-2020 MRI of head MD Rylan Andrea Work Phone: Start: 03-23-2020 Computed tomography of abdomen and pelvis with contrast MD Rylan Andrea Work Phone: Start: 03-23-2020 CT of thorax with contrast MD Rylan pierce Work Phone: Start: 11-24-2019 CT of head with contrast MD Rylan Andrea Work Phone: Start: 10-24-2017 Cookie Varma DO Work Phone: Aerobic microbial culture MD Rylan Andrea Work Phone: Anaerobic microbial culture MD Rylan Andrea Work Phone: Blood culture for raman cteria, including anaerobic screen MD Rylan Andrea Work Phone: Insertion of implant able venous access port Rylan Krystina Emre Work Phone: Investigation of tra nsfusion reaction MD Rylan Andrea Work Phone: Surgical repair of upper extremity Rylan Krystina AveryAndrea Work Phone: Total colonoscopy Rylan bray Work Phone: Comment on above: 2016; Vasectomy Rylan Andrea Work Phone: Plan of Treatment Date Care Activity Detail Author Start: 02-17-2034 Screening for malignant neoplasm of colon [facility] Start: 10-25-2027 Screening for malignant neoplasm of colon [facility] Start: 01-13-2026 Medicare Annual Wellness (AWV) Medicare Annual Wellness (AWV) [facility] Start: 04-13-2025 End: 04-13-2025 Patient encounter procedure 04/13/2025 2:00 PM EST Office Visit [facility] [address] [place] [address] Nilsa Solomon, STAIN MAKER [address] [place] [address] [facility] Start: 03-11-2025 Influenza vaccination Influenza Vaccine (#1) [facility] Comment on above: Postponed from 01/12/2025 (Patient Refus ed) Start: 01-20-2025 Medicare Annual Wellness (AWV) Medicare Annual Wellness (AWV) [facility] Start: 01-14-2025 End: 01-14-2026 CT Chest WO contrast CT chest wo IV contrast Imaging Routine Chronic obstructive pulmonary disease, unspecified COPD type (HCC) Acute non-recurrent frontal sinusitis Small cell lung cancer in adult (HCC) History of primary malignant neoplasm of bronchus Shortness of breath Expected: 01/14/2025, Expires: 01/14/2026 [facility] Work Phone: Comment on above: Expected: 01/14/2025, Expires: Start: 01-13-2025 End: 01-13-2025 Patient encounter procedure [facility] Comment on above: Arrived Start: 01-12-2025 Influenza vaccination [facility] Start: 12-20-2024 Adult BMI Screening Adult BMI Screening [facility] Start: 11-10-2024 Influenza vaccination Influenza Vaccine (#1) [facility] Comment on above: Postponed from 01/13/2024 (Supply/Drug S hortage) Start: 09-17-2024 End: 09-17-2025 Thyroxine (T4) free [Mass/volume] in Serum or Plasma T4, free Lab Routine 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) Expected: 09/17/2024 (Approximate), Expires: 09/17/2025 [facility] Comment on above: Expected: 09/17/2024 (Approximate), Expi res: 09/17/2025 Start: 09-17-2024 End: 09-17-2025 Triiodothyronine (T3) Free [Mass/volume] in Serum or Plasma T3, free Lab Routine 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) Expected: 09/17/2024 (Approximate), Expires: 09/17/2025 [facility] Comment on above: Expected: 09/17/2024 (Approximate), Expi res: 09/17/2025 Start: 09-15-2024 End: 09-15-2024 Patient encounter procedure 09/15/2024 2:00 PM EDT Office Visit [facility] [address] [place] [id number] Marilu Bonner NP [address] [place] [address] [facility] Start: 07-21-2024 End: 07-21-2024 Patient encounter procedure [facility] Start: 07-14-2024 End: 07-14-2024 Patient encounter procedure 07/14/2024 1:05 PM EST Office Visit [facility] [address] [place] [phone] Karen Fernandez MD [address] [place] [address] Arrived [facility] Comment on above: Arrived Start: 07-14-2024 End: 07-14-2024 Patient encounter procedure 07/14/2024 10:25 AM EST Office Visit [facility] [address] [place] [phone] Karen Fernandez MD [address] [place] [address] [facility] Start: 07-07-2024 End: 07-07-2024 Patient encounter procedure 07/07/2024 8:45 AM EST Procedure Visit [facility] [address] [place] [address] Karen Fernandez MD [address] [place] [address] [facility] Start: 06-17-2024 End: 06-17-2024 Patient encounter procedure [facility] Comment on above: Encounter for annual wellness visit (AWV ) in Medicare patient (Primary Dx); Primary pulmonary hypertension ([facility]/HCC) Start: 06-16-2024 End: 06-16-2024 Patient encounter procedure [facility] Comment on above: Mass of chin Start: 06-12-2024 End: 06-12-2024 Patient encounter procedure 06/12/2024 2:40 PM EST Office Visit [facility] [address] [place] [phone] Marilu Bonner NP [address] [place] [address] [facility] Start: 05-05-2024 End: 05-05-2024 Patient encounter procedure 05/05/2024 2:35 PM EST Office Visit [facility] [address] [place] [address] Karen Fernandez MD [address] [place] [address] [facility] Start: 04-22-2024 End: 04-22-2024 Patient encounter procedure 04/22/2024 2:00 PM EST Office Visit [facility] [address] [place] [address] Marilu Bonner NP [address] [place] [address] [facility] Start: 04-08-2024 End: 04-08-2024 Patient encounter procedure 04/08/2024 3:15 PM EST Office Visit [facility] [address] [place] [address] Ophelia James DO [address] [place] [place] [address] [facility] Start: 04-03-2024 End: 04-03-2024 Patient encounter procedure 04/03/2024 3:00 PM EST Office Visit [facility] [address] [place] [address] Marilu Bonner NP [address] [place] [address] [facility] Start: 03-17-2024 End: 03-17-2024 Patient encounter procedure 03/17/2024 2:00 PM EST Office Visit [facility] [address] [place] [address] Marilu Bonner NP [address] [place] [address] Person consulting for explanation of examination or test finding (Primary Dx); Alcoholic liver disease, unspecified ([facility]/HCC); Atherosclerosis of aorta (CMS/HCC) [facility] Comment on above: Person consulting for explanation of exa mination or test finding (Primary Dx); Alcoholic liver disease, unspecified (CMS/HCC); Atherosclerosis of aorta (CMS/HCC) Start: 03-14-2024 Influenza vaccination Influenza Vaccine (#1) [facility] Comment on above: Postponed from 01/13/2024 (Patient Refus ed) Start: 03-03-2024 End: 03-03-2024 Patient encounter procedure 03/03/2024 2:00 PM EDT Office Visit [facility] [address] [place] [address] Marilu Bonner NP [address] [place] [address] [facility] Start: 02-18-2024 End: 02-18-2024 [facility] Start: 02-12-2024 End: 02-12-2024 Patient encounter procedure 02/12/2024 2:20 PM EDT Office Visit [facility] [address] [place] [phone] Marilu Bonner NP [address] [place] [address] [facility] Start: 01-21-2024 End: 01-21-2024 Patient encounter procedure 01/21/2024 2:00 PM EDT Office Visit [facility] [address] [place] [address] Marilu Bonner NP [address] [place] [address] [facility] Start: 01-17-2024 End: 01-17-2024 Patient encounter procedure 01/17/2024 9:50 AM EDT Procedure Visit [facility] Wally Cristobal, DO [address] [place] [address] [facility] Start: 01-15-2024 End: 01-15-2024 Patient encounter procedure [facility] Comment on above: Need for follow-up care after discharge (Primary Dx) Start: 01-13-2024 Influenza vaccination [facility] Start: 01-10-2024 End: 01-10-2024 Patient encounter procedure 01/10/2024 2:30 PM EDT Consult [facility] [address] [place] [address] Ophelia James, [address] [place] [address] [facility] Start: 01-08-2024 End: 01-08-2024 Patient encounter procedure 01/08/2024 4:20 PM EDT Office Visit [facility] [address] [place] [address] Rylan Andrea MD [address] [place] [address] [facility] Start: 11-11-2023 Influenza vaccination Influenza Vaccine (#1) [facility] Comment on above: Postponed from 01/12/2023 (Patient Refus ed) Start: 07-10-2023 End: 07-10-2023 Patient encounter procedure 07/10/2023 1:40 PM EST Office Visit [facility] [address] [place] [address] Rylan Andrea MD [address] [place] [address] [facility] Start: 06-25-2023 [facility] Start: 12-11-2022 [facility] Start: 10-26-2022 Erythropoietin (EPO) [Units/volume] in Serum or Plasma [facility] Start: 06-17-2022 [facility] Start: 06-16-2022 Referral to clinical biological photographer [facility] Start: 04-21-2022 [facility] Start: 04-21-2022 Ultrasonic guidance for thoracentesis [facility] Start: 04-18-2022 [facility] Start: 04-18-2022 Ultrasonic guidance for thoracentesis [facility] Start: 04-14-2022 [facility] Start: 04-11-2022 [facility] Start: 04-11-2022 Troponin I.cardiac [Mass/volume] in Serum or Plasma by High sensitivity method [facility] Start: 04-10-2022 Referral to oncologist [facility] Start: 04-10-2022 Hospital admission [facility] Start: 04-10-2022 [facility] Start: 02-27-2022 [facility] Start: 11-29-2021 FUV, Provider: Lukas Oliveira, Status: Pen, Time: 11:10 AM FUV, Provider: Lukas Oliveira, Status: Pen, Time: 11:10 AM [facility] [address] DO Work Phone: Start: 09-05-2021 [facility] Start: 08-22-2021 [facility] Start: 04-05-2021 [facility] Start: 02-01-2021 [facility] Start: 09-29-2020 COVID-19 Vaccine (3 - Pfizer risk series) COVID-19 Vaccine (3 - Pfizer risk series) [facility] Kwan[facility] Start: 08-16-2020 [facility] Start: 08-05-2020 [facility] Start: 07-26-2020 [facility] Start: 07-06-2020 [facility] Start: 06-29-2020 [facility] Start: 06-14-2020 [facility] Start: 05-24-2020 [facility] Start: 05-03-2020 [facility] Start: 04-12-2020 [facility] Start: 04-12-2020 [facility] Start: 03-08-2020 [facility] Start: 02-24-2020 [facility] Start: 02-18-2020 [facility] Start: 02-16-2020 End: 02-16-2020 [facility] Start: 02-16-2020 [facility] Start: 02-10-2020 [facility] Start: 02-04-2020 End: 02-04-2020 [facility] Start: 01-28-2020 [facility] Start: 01-26-2020 [facility] Start: 01-26-2020 [facility] Start: 01-21-2020 [facility] Start: 01-21-2020 End: 01-21-2020 [facility] Start: 01-06-2020 [facility] Start: 01-05-2020 [facility] Start: 12-15-2019 [facility] Start: 11-24-2019 [facility] Start: 1984 Administration of varicella zoster vaccine Zoster (Shingles) Vaccine (1 of 2) [facility] Start: 1984 DTaP,Tdap and Td Vaccines (1 - Tdap) DTaP,Tdap and Td Vaccines (1 - Tdap) [facility] Start: 1977 Depression Screening Depression Screening [facility] Start: 1977 Tobacco Screening Tobacco Screening [facility] Start: 1965 Medicare Annual Wellness (AWV) Medicare Annual Wellness (AWV) [facility] Start: 1965 Screening for malignant neoplasm of colon [facility] Amylase [Enzymatic activity/volume] in Serum or Plasma Amylase Lab Routine 06/25/2023 7:57 AM EST [facility] Bacteria identified in Blood by Culture [facility] Blood culture for bacteria, including anaerobic screen Blood Culture [facility] Carcinoembryonic Ag [Mass/volume] in Serum or Plasma [facility] Comprehensive metabo lic 1999 panel - Serum or Plasma [facility] Comprehensive metabo lic 1999 panel - Serum or Plasma [facility] Comprehensive metabo lic 1999 panel - Serum or Plasma [facility] Comprehensive metabo lic 1999 panel - Serum or Plasma [facility] Comprehensive metabo lic 1999 panel - Serum or Plasma Comprehensive metabolic panel Lab Routine 06/25/2023 7:57 AM EST [facility] Work Phone: Comprehensive metabo lic 1999 panel - Serum or Plasma [facility] Comprehensive metabo lic 2000 panel - Serum or Plasma [facility] CT Abdomen and Pelvi s W contrast IV [facility] CT Abdomen and Pelvi s W contrast IV [facility] CT Abdomen and Pelvi s W contrast IV [facility] CT Abdomen and Pelvi s W contrast IV [facility] CT Chest W contrast IV [facility] CT Chest W contrast IV [facility] CT Chest W contrast IV [facility] CT Chest W contrast IV [facility] Dermatopathology exam Dermatopat hology exam Pathology and Cytology Timed Epidermal inclusion cyst Release Upon Ordering for 1 Occurrences starting 07/07/2024 [facility] Work Phone: Comment on above: Release Upon Ordering for 1 Occurrences starting 07/07/2024 Erythrocyte sediment ation rate by Photometric method [facility] Erythropoietin (EPO) [Units/volume] in Serum or Plasma [facility] Iron and Iron bindin g capacity panel - Serum or Plasma Iron and TIBC Lab Routine 06/25/2023 7:57 AM EST [facility] Lipase [Enzymatic activity/volume] in Serum or Plasma Lipase Lab Routine 06/25/2023 7:57 AM EST [facility] Methylmalonate [Moles/volume] in Serum or Plasma [facility] Patient Education [facility] Work Phone: Patient referral [facility] Work Phone: Thyrotropin [Units/volume] in Serum or Plasma [facility] Thyrotropin [Units/volume] in Serum or Plasma TSH Lab Routine 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) Ordered: 09/17/2024 [facility] Work Phone: Comment on above: Ordered: 09/17/2024 Ultrasonic guidance for thoracentesis [facility] Ultrasonic guidance for thoracentesis [facility] [place] Immunizations Immunization Date Immunization Notes Care Provider Anjel carver 09-01-2020 Pfizer-BioNTech COVID-19 Vacc 30 MCG/0.3ML Intramuscular Suspension Rylan A Andrea Work Phone: [facility] 07-30-2020 Pfizer-BioNTech COVID-19 Vacc 30 MCG/0.3ML Intramuscular Suspension Rylan A Andrea Work Phone: [facility] 03-24-2020 influenza, injectabl e, quadrivalent, preservative free Rylan A Andrea Work Phone: [facility] 03-24-2020 influenza virus vaccine, unspecified formulation Estela Varma DO Work Phone: [facility] 03-15-2020 influenza, injectabl e, quadrivalent, preservative free Rylan A Andrea Work Phone: [facility] 02-13-2020 Influenza, High-dose Seasonal, Quadrivalent, Preservative Free Nilsa Sanna [employer]AIN [employer]ER Work Phone: [facility] Payers Date Payer Category Payer Self-pay [id number] 2023 Medicare (Managed Care) [facility] MEDICARE [id number] 2023 Private Health Insurance [facility] [id number] 2021 Medicaid [id number] 2021 Medicare [id number] 2017 Private Health Insurance 40d [id number] 1965 Unknown [id number] 2.16.840.1.722246.3.579.2. 173 1965 Unknown [id number] 2.16.840.1.466072.3.579.2. 356 1965 Unknown [id number] 2.16.840.1.865417.3.579.2. 356 1965 Unknown [id number] 2.16.840.1.420849.3.579.2. 356 1965 Unknown [id number] 2.16.840.1.122234.3.579.2. 593 1965 Unknown [id number] 2.16.840.1.225182.3.579.2. 593 1965 Unknown [id number] 2.16.840.1.526038.3.579.2. 593 1965 Unknown [id number] 2.16.840.1.112332.3.579.2. 593 1965 Unknown [id number] 2.16.840.1.404306.3.579.2. 593 1965 Unknown [id number] 2.16.840.1.293544.3.579.2. 593 1965 Unknown [id number] 2.16.840.1.691737.3.579.2. 593 1965 Unknown [id number] 2.16.840.1.726461.3.579.2. 593 1965 Unknown [id number] 2.16.840.1.703253.3.579.2. 593 1965 Unknown [id number] 2.16.840.1.994882.3.579.2. 1286 1965 Unknown [id number] 2.16840.1.418914.3.579.2. 1286 1965 Unknown [id number] 2.16.840.1.375234.3.579.2. 1286 1965 Unknown [id number] 2.16840.1.452097.3.579.2. 128 1965 Unknown [id number] 2.16840.1.813508.3.579.2. 1286 1965 Unknown [id number] 2.840.1.638796.3.579.2. 727 1965 Unknown [id number] 2.840.1.070551.3.579.2. 727 1965 Unknown [id number] 2.840.1.308469.3.579.2. 1258 1965 Unknown [id number] 2.840.1.642303.3.579.2. 1258 1965 Unknown [id number] 2.840.1.687961.3.579.2. 1258 1965 Unknown [id number] 2.840.1.141640.3.579.2. 9 1965 Unknown [id number] 2.840.1.687478.3.579.2. 1259 1965 Unknown [id number] 2.16840.1.203062.3.579.2. 9 1965 Unknown [id number] 2.16840.1.836117.3.579.2. 1258 1965 Unknown [id number] 2.16840.1.511764.3.579.2. 1259 1965 Unknown [id number] 2.16840.1.359382.3.579.2. 125 1965 Unknown [id number] 2.16840.1.194036.3.579.2. 1259 1959 Medicaid [id number] 1959 Medicare [id number] 1959 Private Health Insurance [id number] Private Health Insurance [facility] [id number] Unknown Unknown [id number] 2.16.840.1.718892.19 Unknown [id number] 2.16.840.1.864040.3.579.2. 531 Unknown [id number] 2.16.840.1.518114.3.579.2. 531 Social History Date Type Detail Facility Start: 04-13-2023 End: 11-12-2023 Occasional alcohol use Occasional alcohol use [facility] Comment on above: beer; medical marijuana ed ibles; quit 2020 1ppd; Start: 04-11-2023 End: 11-12-2023 Sex Assigned At [facility] Start: 02-27-2022 End: 10-31-2023 Tobacco smoking status [facility] Ex-smoker (finding) [facility] Start: 1965 Sex Assigned At [facility] Start: 10-26-2022 End: 12-25-2022 Tobacco smoking status [facility] Never smoked tobacco (finding) [facility] Start: 04-12-2023 Tobacco smoking stat us [facility] Occasional tobacco smoker [facility] History of tobacco use Cigar Smoker [facility] Start: 04-12-2023 End: 10-31-2023 Tobacco use and exposure Smokeless tobacco non-user [facility] Start: 04-13-2023 End: 01-13-2025 Alcohol intake Current drinker of alcohol (finding) [...] Identifies as male gender (finding) [facility] History of tobacco use Current smoker [facility] History of tobacco use Cigarette Smoker [facility] How often do you nee d to have someone help you when you read instructions, pamphlets, or other written material from your doctor or pharmacy [SILS] Patient declines to respond [facility] Do you belong to any clubs or organizations such as pentecostalism groups, unions, fraJawfish Games or athletic groups, or school groups? No [...] - these days [OSQ] To some extent [facility] (I/We) worried shawn er (my/our) food would run out before (I/we) got money to buy more. Sometimes true [facility] Start: 02-04-2024 Alcohol Comment Pt drinks a 6 pack per week if that [facility] Start: 12-25-2023 Alcoholic beverage intake Ex-drinker (finding) [facility] Start: 11-12-2023 Alcohol Comment He drinks a 6 pack in 3 days [facility] Start: 01-21-2024 Alcohol Comment Very heavily, 2 cases of beer a week [facility] consumption unknown [facility] Start: 07-14-2024 Sex Male (finding) [facility] How often to you hav e a drink containing alcohol? 2-3 time sa week [facility] How many standard drinks containing alcohol do you have on a typical day? 1 or 2 [facility] How often do you hav e 6 or more drinks on 1 occasion? Never [facility] NEGATED: Highlighted rowStart: NINF History of tobacco use Passive smoker [facility] Medical Equipment Procedure Code Equipment Code Equipment Origin al Text Equipment Identifier Dates Repair, hernia, inguinal, with mesh Abdominal hernia surgical mesh, synthetic polymer, non-bioabsorbable [id number] FDA Start: 05-10-2020 Insertion of central venous catheter (CVC) with subcutaneous port for chemotherapy Vascular port/catheter [id number] FDA Start: 11-26-2019 Goals Date Patient Goal Desired Activity /State Personal health goal Functional Status Date Assessment Result Facility 01-13-2025 Patient Health Questionnaire 2 item (PHQ-2) [Reported] [facility] 09-15-2024 Total score [AUDIT-C] 3 09/16/19 2:03 PM EDT Cici Kelly MA [facility] 09-15-2024 Patient Health Questionnaire 2 item (PHQ-2) [Reported] [facility] 09-15-2024 PHQ-9 quick depressi on assessment panel [Reported.PHQ] [facility] 06-17-2022 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 [facility] Work Phone: 04-11-2022 Functional status Patient at Baseline [facility] Work Phone: 04-10-2022 Functional status Patient at Baseline [facility] Work Phone: 09-08-2021 PHQ-9 [id number] Sever e () [place] [address] DO Work Phone: [facility] Mental Status Date Assessment Result Facility 06-17-2022 Cognitive function Cognitive Sta tus Patient at Baseline [facility] Work Phone: 04-11-2022 Cognitive function Cognitive Sta tus Patient at Baseline [facility] Work Phone: 04-10-2022 Cognitive function Cognitive Sta tus Patient at Baseline [facility] Work Phone: Clinical Notes 11-18-2019 to 01-13-2025 Nilsa Solomon NP - 01/13/2025 2:00 PM Edilberto Delgado MA - 09/15/2024 2:00 PM Shalini Solomon NP - 09/15/2024 2:00 PM EDT Note Date & Type Note Facility 01-13-2025 History of Presen t illness Narrative Images from the original note were not included. Family Medicine Note Subjective : Chief Complaint: Kirill Echols is an 59 y.o. male here for an annual wellness visit. He is up to date on lab work and preventative wellness screenings. He reports that he has been experiencing worsening dyspnea symptoms as well as increased fatigue. He also reports an intermittent cough in addition to sinus pressure and pain. He reports that a lot of his symptoms are similar to when he was initially diagnosed with lung cancer and he is concerned that something may be going on. Additionally, he admits to intermittent chills. He denies further complaints or concerns at this time. I have reviewed and reconciled the history and medication list with the patient today. Current Outpatient Medications Medication Sig Dispense Refill acetaminophen (Tylenol) 325 MG tablet 650 mg Orally Q 8 hrs as needed Aspirin Low Dose 81 MG EC tablet Take 81 mg by mouth in the morning. as directed. melatonin 3 MG tablet Take 1 tablet (3 mg) by mouth as needed at bedtime for sleep 90 tablet 3 pantoprazole (ProtoNix) 40 MG EC tablet Daily QUEtiapine (SEROquel) 100 MG tablet Take 1 tablet (100 mg) by mouth 3 (three) times a day Take 1 tablet in the morning and 2 tablets at night 270 tablet 0 amoxicillin (Amoxil) 500 MG tablet Take 1 tablet (500 mg) by mouth in the morning and 1 tablet (500 mg) before bedtime. Do all this for 10 days. 20 tablet 0 Zwvtvqjfyri-Ajdbfxaed-Ekykzm (Trelegy Ellipta) 100-62.5-25 MCG/ACT aerosol powder Inhale 1 puff Daily 60 each 0 levothyroxine (Synthroid, Levoxyl) 100 MCG tablet Take 1 tablet (100 mcg) by mouth in the morning. Take before meals. 30 tablet 5 No current facility-administered medications for this visit. List of current healthcare providers: Patient Care Team: Rylan Andrea MD as PCP - General (Family Medicine) Nilsa Solomon NP as Nurse Practitioner (Pulmonary Disease) APOLINAR Brasher as Outdoor Landscape Architect (Family Medicine) Cindy Yeager OD as Referring Physician (Optometry) Ophelia James DO (Pulmonary Disease) Medicare Annual Visit Over the past 2 weeks, how often have you been bothered by any of the following problems? Little interest or pleasure in doing things: Nearly every day Feeling down, depressed, or hopeless: Nearly every day Patient Health Questionnaire-2 Score: 6 Over the past 2 weeks, how often have you been bothered by any of the following problems? Trouble falling or staying asleep, or sleeping too much: Nearly every day Feeling tired or having little energy: Nearly every day Poor appetite or overeating: Nearly every day Feeling bad about yourself - or that you are a failure or have let yourself or your family down: Not at all Trouble concentrating on things, such as reading the newspaper or watching television: Nearly every day Moving or speaking so slowly that other people could have noticed? Or the opposite - being so fidgety or restless that you have been moving around a lot more than usual.: Not at all Thoughts that you would be better off or hurting yourself in some way: Not at all Patient Health Questionnaire-9 Score: 18 Valencia Fall Risk History of Falling, Immediate or Within 3 Months: No Secondary Diagnosis: No Ambulatory Aid: Walks without aid/bedrest/nurse assist Intravenous Therapy/Heparin Lock: No Gait/Transferring: Normal/bedrest/immobile Mental Status: Oriented to own ability Valencia Fall Risk Score: 0 Health Risk Assessment Form Do you need help eating, bathing, using the toilet, dressing, or getting around your home?: No Can you prepare your own meals?: Yes Can you do your own housework without help?: Yes Can you shop for groceries or clothes without help?: Yes Do you exercise for about 20 minutes 3 or more days a week?: Yes How confident are you that you can control and manage most of your health problems?: Very confident Can you mange your money, credit cards and accounts, pay bills and taxes?: Yes Cognitive Screening Self Assessment: No concerns rasied by family members, friends, or caretakers, No self awareness of cognitive deficiency, No overt cognitive deficiency is apparent by direct observation Three Word Registration: Briana Flores Mountain Clock Drawing: Normal Clock - 2 Three Word Recall: All 3 words correct - 3 Total Score (0-5 Points): 5 Pain Assessment Pain Score: 6 Advance Care Planning Do you have a living will?: No Do you have a medical power of ironing worker?: No Objective : BP 128/72 Pulse 99 Temp 97.2 F (Temporal) Resp 16 Ht 6' Wt 149 lb SpO2 95% BMI 20.21 kg/m No results found. Physical Exam Vitals and nursing note reviewed. Constitutional: General: He is not in acute distress. Appearance: Normal appearance. He is not ill-appearing. HENT: Head: Normocephalic and atraumatic. Right Ear: Tympanic membrane, ear canal and external ear normal. Left Ear: Tympanic membrane, ear canal and external ear normal. Nose: Congestion and rhinorrhea present. Mouth/Throat: Mouth: Mucous membranes are moist. Eyes: Extraocular Movements: Extraocular movements intact. Pupils: Pupils are equal, round, and reactive to light. Cardiovascular: Rate and Rhythm: Normal rate. Pulses: Normal pulses. Heart sounds: No murmur heard. Pulmonary: Effort: Pulmonary effort is normal. Breath sounds: No wheezing, rhonchi or rales. Abdominal: General: Bowel sounds are normal. There is no distension. Tenderness: There is no abdominal tenderness. Musculoskeletal: General: Normal range of motion. Cervical back: Normal range of motion. Skin: General: Skin is warm and dry. Neurological: General: No focal deficit present. Mental Status: He is alert and oriented to person, place, and time. Psychiatric: Mood and Affect: Mood normal. Behavior: Behavior normal. Judgment: Judgment normal. Assessment/Plan : The following health maintenance schedule was reviewed with the patient and provided in printed form in the after visit summary: Health Maintenance Topic Date Due Influenza Vaccine (1) 03/11/2025 (Originally 01/12/2025) Medicare Annual Wellness (AWV) 01/13/2026 Colorectal Cancer Screening 02/17/2034 Diagnoses and all orders for this visit: Acute non-recurrent frontal sinusitis - amoxicillin (Amoxil) 500 MG tablet; Take 1 tablet (500 mg) by mouth in the morning and 1 tablet (500 mg) before bedtime. Do all this for 10 days. New medications as directed. Report side effects of medication to PCP immediately. Monitor fluid intake, urine output. Call office if symptoms do not improve within the next 72 hours. Maintain clean hands as much as possible. Encourage fluids. Return to the office in 2 weeks for TM recheck. To ER for worsening of symptoms. 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 Take before meals. The symptoms of hypothyroidism include fatigue, weakness, [...] during your appointment. Patient understands treatment plan. Chronic obstructive pulmonary disease, unspecified COPD type (HCC) - Hwymtidkmci-Cskpuxtjz-Sxwaxu (Trelegy Ellipta) 100-62.5-25 MCG/ACT aerosol powder ; Inhale 1 puff Daily Chronic Obstructive Pulmonary Disease (COPD) is a group of lung diseases that cause airflow obstruction and breathing difficulties. It is a progressive condition that damages the airways and air sacs in the lungs, making it harder to breathe. COPD is primarily caused by smoking but can also be caused by other factors such as air pollution and genetic predisposition. It is a leading cause of worldwide and is characterized by symptoms such as chronic cough, shortness of breath, wheezing, and chest tightness. - CT chest wo IV contrast; Future Small cell lung cancer in adult (HCC) - CT chest wo IV contrast; Future History of primary malignant neoplasm of bronchus - CT chest wo IV contrast; Future Shortness of breath - CT chest wo IV contrast; Future Routine general medical examination at health care facility Patient here for annual Medicare Wellness visit. [...] an education packet regarding healthy living and maintenance of a healthy weight. The BMI will cont to be monitored at routine office visits as well. Major risk factors for chronic disease including family history were discussed . Advance Care Planning He does not have a living will or POA in place. Orders Placed This Encounter Procedures CT chest wo IV contrast Standing Status: Future Expected Date: 01/14/2025 Expiration Date: 01/14/2026 Reason for exam:: Hx of lung cancer, dyspnea, cough, fatigue Follow up in about 3 months (around 04/14/2025) for CIM. Electronically signed by Nilsa Solomon NP on January 14, 2025 documented in this encounter [facility] 09-15-2024 History of Presen t illness Narrative Images from the original note were not included. NOTES TO ME AND NURSE: MET Check navina Smoker? CIM bill? SUBJECTIVE CURRENT MEDICATIONS Current Outpatient Medications: acetaminophen (Tylenol) 325 MG tablet, 650 mg Orally Q 8 hrs as needed, Disp: , Rfl: Aspirin Low Dose 81 MG EC tablet, Take 81 mg by mouth in the morning. as directed., Disp: , Rfl: docusate sodium (Colace) 100 MG capsule, Take 100 mg by mouth in the morning and 100 mg before bedtime., Disp: , Rfl: Tnunstvjxvv-Xapeclmzl-Dbxnpp (Trelegy Ellipta) 100-62.5-25 MCG/ACT aerosol powder , [...] Rfl: pantoprazole (ProtoNix) 40 MG EC tablet, Daily, Disp: , Rfl: QUEtiapine (SEROquel) 100 MG tablet, Take 1 tablet in the morning and 2 tablets at night, Disp: , Rfl: zolpidem (Ambien) 5 MG tablet, Take 1 tablet (5 mg) by mouth as needed at bedtime for sleep, Disp: 30 tablet, Rfl: 0 RECENT VITAL SIGNS 12/25/2023 1:00 PM 01/10/2024 2:14 PM 01/15/2024 1:54 PM 01/21/2024 1:53 PM 02/04/2024 1:42 PM 03/17/2024 1:54 PM 06/17/2024 2:49 PM Vitals BMI 18.44 kg/m2 18.85 kg/m2 19.12 kg/m2 18.85 kg/m2 19.23 kg/m2 19.94 kg/m2 20.7 kg/m2 BSA (m2) 1.77 m2 1.79 m2 1.8 m2 1.79 m2 1.81 m2 1.84 m2 1.87 m2 Systolic 110 133 122 132 130 118 118 Diastolic 82 84 74 78 72 88 72 Heart Rate 116 74 99 108 100 60 92 SpO2 93 % 88 % 97 % 98 % 97 % 99 % 95 % Temp 97.2 F 96.3 F 98.2 F 97.6 F 98 F 98 F Resp 16 16 Height (in) 6' 6' 6' 6' 6' 6' 6' Weight (lb) 136 139 141 139 141.8 147 152.6 Visit Report Report Report Report Report Report Report RECENT LABS Recent Results (from the past 6 weeks) [facility] Collection Time: 06/03/24 11:43 AM Result Value Ref Range [facility] IRON 90.0 65.0 - 175.0 ug/dL [facility] TOTAL IRON BINDING CAPACITY 250.0 250.0 - 450.0 ug/dL [facility] PERCENT IRON SATURATION 36.0 % ALL THYROXINE (T4) FREE Collection Time: 06/03/24 11:43 AM Result Value Ref Range FREE T4 0.92 0.76 - 1.46 ng/dL ALL T3 FREE Collection Time: 06/03/24 11:43 AM Result Value Ref Range FREE T3 1.80 (L) 2.18 - 3.98 pg/mL ALL CEA Collection Time: 06/03/24 11:43 AM Result Value Ref Range CEA 15.4 (A) 0.0 - 4.7 ng/mL VITAMIN B12 Collection Time: 06/03/24 11:43 AM Result Value Ref Range VITAMIN B12 510 232 - 1245 pg/mL ALL CBC WITH AUTO DIFF Collection Time: 06/19/24 12:54 PM Result Value Ref Range TBH WBC 6.9 4.0 - 11.0 10 3/uL TB[facility] RBC 4.40 (L) 4.70 - 6.10 10 6/uL TB[facility] HGB 13.6 (L) 14.0 - 18.0 g/dL TBH HCT 40.3 (L) 42.0 - 54.0 % TB[facility] MCV 91.6 80.0 - 94.0 fL TBH MCH 30.9 25.9 - 34.0 pg TBH MCHC 33.7 29.9 - 35.2 g/dL TBH RDW 16.7 (H) 11.0 - 15.0 % TB[facility] PLT 222 150 - 450 10 3/uL [facility] MPV 9.0 (L) 9.5 - 13.5 fL NEUTROPHILS PERCENT AUTO 55.4 43.0 - 75.0 % LYMPHOCYTES PERCENT AUTO 26.3 20.5 - 60.0 % MONOCYTES PERCENT AUTO 9.9 1.7 - 12.0 % TBH EO % 7.1 (H) 0.9 - 7.0 % BASOPHILS PERCENT AUTO 1.2 0.2 - 2.0 % IMMATURE GRANULOCYTES PCT AUTO 0.1 0.0 - 0.5 % NEUTROPHILS ABSOLUTE AUTO 3.8 1.4 - 6.5 10 3/uL LYMPHOCYTES ABSOLUTE AUTO 1.8 1.2 - 3.8 10 3/uL MONOCYTES ABSOLUTE AUTO 0.7 0.3 - 0.8 10 3/uL TBH EO # 0.5 0.0 - 0.7 10 3/uL BASOPHILS ABSOLUTE AUTO 0.1 0.0 - 0.1 10 3/uL IMMATURE GRANULOCYTES ABS AUTO 0.01 0.00 - 0.03 10 3/uL [facility] CMP (CMP) (FOR REMOTE [facility] USE) Collection Time: 06/19/24 12:54 PM Result Value Ref Range SODIUM 138 136 - 145 mmol/L POTASSIUM 4.8 3.5 - 5.1 mmol/L CHLORIDE 101 98 - 107 mmol/L CARBON DIOXIDE 27.4 21.0 - 32.0 mmol/L ANION GAP 14.4 GLUCOSE 78 74 - 106 mg/dL BLOOD UREA NITROGEN 14.0 7.0 - 18.0 mg/dL CREATININE 1.52 (H) 0.70 - 1.30 mg/dL TBH EGFR-AF BRITISH 57 (L) >=60 mL/min/1.73m 2 TBH EGFR-NON AF BRITISH 47 (L) >=60 mL/min/1.73m 2 BUN CREATININE RATIO 9.2 CALCIUM 8.6 8.5 - 10.1 mg/dL BILIRUBIN TOTAL 0.2 0.2 - 1.0 mg/dL ASPARTATE AMINO TRANSFERASE 19 15 - 37 U/L ALANINE AMINOTRANSFERASE 17 16 - 63 U/L ALKALINE PHOSPHATASE 143 (H) 46 - 116 U/L TOTAL PROTEIN 7.6 6.4 - 8.2 g/dL ALBUMIN LEVEL 3.6 3.4 - 5.0 g/dL GLOBULIN 4.0 g/dL ALBUMIN GLOBULIN RATIO 0.9 ALL T3 FREE Collection Time: 06/19/24 12:54 PM Result Value Ref Range FREE T3 1.60 (L) 2.18 - 3.98 pg/mL ALL THYROID STIM HORMONE Collection Time: 06/19/24 12:54 PM Result Value Ref Range THYROID STIMULATING HORMONE 2.456 0.358 - 3.740 uIU/mL [facility] Collection Time: 06/19/24 12:54 PM Result Value Ref Range TBH IRON 80.0 65.0 - 175.0 ug/dL TBH TOTAL IRON BINDING CAPACITY 231.0 (L) 250.0 - 450.0 ug/dL TB[facility] PERCENT IRON SATURATION 34.6 % [facility] FERRITIN Collection Time: 06/19/24 12:54 PM Result Value Ref Range FERRITIN 231.0 26.0 - 388.0 ng/mL ALL FOLIC ACID Collection Time: 06/19/24 12:54 PM Result Value Ref Range FOLATE 12.60 8.60 - 58.90 ng/mL ALL THYROXINE (T4) FREE Collection Time: 06/19/24 12:54 PM Result Value Ref Range FREE T4 0.75 (L) 0.76 - 1.46 ng/dL VITAMIN B12 Collection Time: 06/19/24 12:54 PM Result Value Ref Range VITAMIN B12 466 232 - 1245 pg/mL OBJECTIVE Physical Exam ASSESSMENT/PLAN FOLLOW-UP No follow-ups on file. Family Medicine Note Subjective: Chief Complaint: CIM HPI: Kirill Echols presents to the office today for chronic illness management follow-up. The patient did complete lab work in June which he would like to review today. He is up to date on all other wellness screenings. He does have concerns of continued depression. The patient is currently taking seroquel twice daily, however still reports depression symptoms. He feels that this is related to his relationship with his . He is interested in starting an additional medication to assist with his symptoms. He denies further complaints or concerns at this time. Current Outpatient Medications: acetaminophen (Tylenol) 325 MG tablet, 650 mg Orally Q 8 hrs as needed, Disp: , Rfl: Aspirin Low Dose 81 MG EC tablet, Take 81 mg by mouth in the morning. as directed., Disp: , Rfl: Osmzjzueeiu-Vikgdywgg-Xhufav (Trelegy Ellipta) 100-62.5-25 MCG/ACT aerosol powder , Inhale 1 puff Daily, Disp: , Rfl: levothyroxine (Synthroid, Levoxyl) 100 MCG tablet, Take 1 tablet (100 mcg) by mouth in the morning. Take before meals., Disp: , Rfl: melatonin 3 MG tablet, Take 1 tablet (3 mg) by mouth as needed at bedtime for sleep, Disp: 90 tablet, Rfl: 3 pantoprazole (ProtoNix) 40 MG EC tablet, Daily, Disp: , Rfl: QUEtiapine (SEROquel) 100 MG tablet, Take 1 tablet in the morning and 2 tablets at night, Disp: , Rfl: escitalopram (Lexapro) 5 MG tablet, Take 1 tablet (5 mg) by mouth Daily, Disp: 30 tablet, Rfl: 2 Medical History: Past Medical History: Diagnosis Date Abdominal cramping 04/03/2024 Abdominal pain 11/08/2023 Acute alcoholism (CMS/HCC) 11/08/2023 Acute hypokalemia 11/08/2023 Adenopathy 11/08/2023 Adverse reaction to LUIS inhibitor drug 11/08/2023 Alcoholism (CMS/HCC) 10/2017 [facility] Altered mental status 11/08/2023 Amnesia 11/08/2023 Anemia 11/08/2023 Chemical dependency ([facility]) Chest pain 02/25/2020 NSTEMI Chronic nausea 11/08/2023 Costochondral junction syndrome 12/21/2023 Counseling regarding advanced directives 11/08/2023 Depression with anxiety Diarrhea 11/08/2023 Edema 11/08/2023 Gastrointestinal hemorrhage associated with peptic ulcer Heart disease HTN (hypertension) ([facility]) Hx of small bowel obstruction 04/03/2024 Hyperinflation of lungs Hyponatremia Hyposmolality syndrome 12/21/2023 Hypothyroidism ([facility]) 12/21/2023 Insomnia Internal hemorrhoids Joint pain 11/08/2023 Left inguinal hernia Neck pain 11/08/2023 Pain due to neoplasm 11/08/2023 Pancreatitis 2017 Pneumothorax 11/08/2023 Prostatitis Pyuria 11/08/2023 Recurrent acute pancreatitis Septicemia due to E. coli ([facility]) ([facility]) 01/02/2024 Shortness of breath 11/08/2023 Small cell lung cancer in adult ([facility]) Smoker Suicidal ideation 11/08/2023 Tachycardia 11/08/[address] 11/08/2023 TOS (thoracic outlet syndrome) Urinary retention with incomplete bladder emptying 11/08/2023 Vomiting 11/08/2023 Weight loss 11/08/2023 Allergies: Allergies Allergen Reactions Chlordiazepoxide Swelling Edema Lisinopril Swelling Swelling of Lip/Tongue/Throat Sertraline Swelling Swelling of Lip/Tongue/Throat Social History: Tobacco Use: Tobacco Use: Medium Risk (09/15/2024) Patient History Smoking Tobacco Use: Former Smokeless Tobacco Use: Never Passive Exposure: Never Objective: Vitals: 09/15/24 1402 BP: 122/70 Pulse: 102 Resp: 20 Temp: 98.6 F SpO2: 97% Weight: 156 lb 9.6 oz Height: 6' Physical Exam Vitals and nursing note reviewed. Constitutional: General: He is not in acute distress. Appearance: Normal appearance. He is not ill-appearing. HENT: Head: Normocephalic and atraumatic. Right Ear: External ear normal. Left Ear: External ear normal. Nose: Nose normal. Mouth/Throat: Mouth: Mucous membranes are moist. Eyes: Extraocular Movements: Extraocular movements intact. Pupils: Pupils are equal, round, and reactive to light. Cardiovascular: Rate and Rhythm: Normal rate and regular rhythm. Pulses: Normal pulses. Heart sounds: No murmur heard. Pulmonary: Effort: Pulmonary effort is normal. Breath sounds: No wheezing, rhonchi or rales. Abdominal: General: Bowel sounds are normal. There is no distension. Tenderness: There is no abdominal tenderness. Musculoskeletal: General: Normal range of motion. Cervical back: Normal range of motion. Skin: General: Skin is warm and dry. Neurological: General: No focal deficit present. Mental Status: He is alert and oriented to person, place, and time. Psychiatric: Mood and Affect: Mood normal. Affect is flat. Behavior: Behavior normal. Judgment: Judgment normal. Assessment: Assess/Plan Problem List Items Addressed This Visit Anxiety - Primary Relevant Medications escitalopram (Lexapro) 5 MG tablet We did review the patients continued anxiety and depression symptoms. He is currently taking Seroquel on a daily basis. I do feel that with his continued symptoms that he would benefit from starting an additional medication on a daily basis and will send this to his pharmacy today. Medication as directed. Counseling recommended. Verbalizes understanding of the need to be seen in the emergency department for suicidal/homicidal ideation, excessive stress, elevated blood pressure or palpitations. Patient offers understanding of treatment plan. I discussed the side effects of the medications prescribed and to seek medical care if they arise. Discussed stress management strategies, social support and importance of healthy diet, exercise and regular sleep habits. Advised on relaxation methods to decrease anxiety and depression. All questions answered. Call the office with any other questions or concerns. 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 The patients labs were completed back in June, so I do feel that these levels need to be rechecked prior to changing any of his medications. The patient is agreeable and labs will be sent to [facility]. Pending result he may require adjustment to his levothyroxine. Follow-up: Follow up in about 3 months (around 12/16/2024) for CIM. documented in this encounter [facility] 07-14-2024 Progress note [facility] enter 07-14-2024 Evaluation note Diagnosis Onset Date Resolution Cancer-related pain acute July 14, 2024 1:28pm Chronic hyponatremia acute Krishan h 2024 1:28pm Joint pain acute July 14 1:28pm Shortness of breath acute July 14, 2024 1:28pm Weight loss acute July 14 1:28pm Small cell lung cancer chronic [facility] 2024 1:28pm Anxiety resolved July 14 1:28pm Chest pain resolved July 14 1:28pm Diarrhea resolved July 14 1:28pm Edema resolved July 14 1:28pm Neck pain resolved July 14 1:28pm Anemia due to chemotherapy inactive July 14, 2024 1:28pm [facility] Work Phone: 1(640) 701-364103-03-2025 History of Present illness Narrative* Karen Fernandez MD - 07/14/2024 1:05 PM EST Images from the original note were not included. Suture Removal Patient here for suture removal: No complaints of redness, drainage or swelling at site, compliant with wound care. Location: Right Mandible Procedure Performed: Excision Date of Procedure: 07/07/2024 Medications: none All pertinent medical history, medications, and allergies were reviewed. General Exam: alert, oriented to person, place, and time, normal affect, well appearing Unaccompanied A focused exam completed based on patient reported problems, see below: 1. Encounter for removal of sutures Right Mandible Sutures are intact, Skin edges are well-approximated, Mild erythema along incision line, No drainage or edema noted Suture Removal: Procedure: Sutures removed without difficulty. Post-Procedure instructions: Instructed to discontinue wound care., Pathology results discussed. Next Visit: prn for any new/changing lesions documented in this encounterMoberly [facility] Medical [id number] History of Present illness Narrative* Karen Fernandez MD - 07/07/2024 8:45 AM EST Images from the original note were not included. Subjective Kirill Echols is a 59 y.o. male who presents for the following: Excision. Location: right mandible Date of biopsy: not previously biopsied Diagnosis: Epidermal inclusion cyst Pre-Op Checklist: History of pacemaker/defibrillator: No History of joint replacement in the past 2 years: No History of HIV/Hepatitis B/Hepatitis C: No Latex allergy: No Is the patient currently on a blood thinner? No. . All pertinent medical history, medications, and allergies were reviewed. Surgical assistants: Linette Aragon CMA, Kassidy Vernon CMA Objective Well appearing patient in no apparent distress; mood and affect are within normal limits. 1. Epidermal inclusion cyst Right mandible 1.6 x 1.6 cm erythematous, subcutaneous nodule Skin excision - Right mandible Lesion length (cm): 1.6 Lesion width (cm): 1.6 Margin per side (cm): 0 Total excision diameter (cm): 1.6 Informed consent: discussed and consent obtained Informed consent comment: Risks and possible complications were discussed as noted on the consent form. The consent form was signed prior to the procedure. Timeout: patient name, date of , surgical site, and procedure verified Timeout comment: Patient and provider identified site. Site was marked and excision was drawn out. Photo was taken and shown to patient, patient verified this is the correct site. Procedure prep: Patient was prepped and draped in usual sterile fashion (The planned incision lineswere drawn along relaxed skin tension lines, if possible, to minimize scarring and deformity of surrounding structures.) Prep type: Chlorhexidine Anesthesia: the lesion was anesthetized in a standard fashion Anesthesia comment: The local anesthetic was injected to create a field block at the site of the procedure. Anesthetic: 1% lidocaine w/ epinephrine 1-100,000 buffered w/ 8.4% NaHCO3 Instrument used: #15 blade Instrument used comment: Incisions were made as drawn, and the surrounding tissue was undermined until the skin edges could be approximated without undue tension. Any tissue redundancies were removed. Hemostasis achieved with: electrodesiccation Additional details: Amount of lidocaine used: 3.0 ml Estimated blood loss: 2.0 ml Skin repair - Right mandible Complexity: Intermediate Final length (cm): 2.8 Reason for type of repair: allow closure of the large defect Undermining: edges undermined Undermining comment: The surrounding tissue was undermined until the skin edges could be approximated without undue tension. Any tissue redundancies were removed. Subcutaneous layers (deep stitches): Suture size: 5-0 Suture type: Monocryl (poliglecaprone 25) Stitches: Buried horizontal mattress (Closure was performed in a layered fashion with subcutaneous tissue closed first using tension-bearing absorbable sutures to the level of the superficial fascia.) Fine/surface layer approximation (top stitches): Suture size: 6-0 Suture type comment: Surgipro Stitches: simple running Stitches comment: Epicuticular skin sutures were then placed with minimal tension. Suture removal (days): 7 Outcome: patient tolerated procedure well with no complications Post-procedure details: sterile dressing applied and wound care instructions given Post-procedure details comment: It was emphasized to the patient to contact the office for any signs of infection, uncontrollable bleeding, or complications. Dressing type: bandage Specimen A - Dermatopathology exam Diagnosis: EIC 2. Other specified erythematous conditions Follow up: 7 days for s/r documented in this encounterMoberly Regional Medical [id number] Instructions* Patient Instructions* Mariul Bonner NP - 06/17/2024 3:00 PM EST [...] medication even if you feel better. Do nottake your thyroid medication at the same time as fiber supplements, calcium, iron, multivitamins, or aluminum hydroxide antacids or any medications that bind bile acids. Take your thyroid medication and these medications at least 4 hours apart. Continue with diet and exercise. Repeat labs in specified time frame as discussed during your appointment. Patient understands treatment plan. documented in this encounterMoberly Regional Medical [id number] History of Present illness Narrative* Karen Fernandez MD - 06/16/2024 2:30 PM EST Images from the original note were not [...] diagnose the lesion would be to have itremoved and tested. Discussed treatment options including observation vs. excision. Patient elected for excision. Reviewed procedure and what to expect. Patient scheduled for 30 minute excision on 07/07/24 at 8:45am. Related Procedures Ambulatory referral to Dermatology 2. Other specified erythematous conditions Next Visit: prn for any new/changing lesions documented in this encounterMoberly Regional Medical [id number] History of Present illness Narrative* Marilu Bonner, STAIN [employer]KER - 03/17/2024 2:00 PM EST Images from the original note were not [...] at the same time., Disp: , Rfl: Ljgpuuvdevq-Sqwjdgobm-Llyosf (Trelegy Ellipta) 100-62.5-25 MCG/ACT aerosol powder , Inhale 1 puff Daily, Disp: , Rfl: levothyroxine (Synthroid, Levoxyl) 100 MCG tablet, Take 1 tablet (100 mcg) by mouth in the morning.Take before meals., Disp: , Rfl: QUEtiapine (SEROquel) [...] pulmonary disease, unspecified COPD type (CMS/HCC) - Wzraptfgumf-Lclitcvbw-Tfkdxr (Trelegy Ellipta) 100-62.5-25 MCG/ACT aerosol powder ; Inhale 1 puffDaily Person consulting for explanation of examination or [...] Next scheduled follow-up: CIM. documented in this encounterMoberly Regional Medical [id number] Instructions* Patient Instructions* Marilu Bonner NP - 03/17/2024 2:00 PM [...] medication even if you feel better. Do nottake your thyroid medication at the same time as fiber supplements, calcium, iron, multivitamins, or aluminum hydroxide antacids or any medications that bind bile acids. Take your thyroid medication and these medications at least 4 hours apart. Continue with diet and exercise. Repeat labs in specified time frame as discussed during your appointment. Patient understands treatment plan. documented in this encounterMoberly Regional Medical [id number] History and physical note Author Cathi Miranda [facility] February 18, 2024 12:43pm Note Date/Time February 18, 2024 12 :43pm [facility] [address] [place] [address] Gastroenterology H&P Signed Patient: Kirill Echols MR#: [id number] : 1965 Acct:[id number] Age/Sex: 58 / M Adm Date: 4 Loc: Room: Type: [facility] Attending Dr: Cathi Miranda DO Copies to: MD Cathi Eason, ~ Date of Service: 02/18/2024 HISTORY & PHYSICAL: [...] signed by Cathi Miranda DO> 02/18/24 1243 [facility] Work Phone: 1(207) 250-226810-07-2024 Procedure [facility]10-07-2024 Procedure [facility]09-23-2024 Instructions* Patient Instructions* Marilu Bonner, ELLE - [...] you in meditation exercises. documented in this encounterMoberly Regional Medical [id number] History of Present illness Narrative* Marilu Bonner [...] mcg by mouth Daily, Disp: , Rfl: Ttnmaazjujh-Oktwnwcbc-Hsokle (Trelegy Ellipta) 100-62.5-25 MCG/ACT aerosol powder , [...] clinically significant. URINE CULTURE, ROUTINE [facility] CULTURE, ROUTINE [address], [place] [id number] URINE CULTURE, ROUTINE [employer]: Fernando Brand PhD, Phone: [phone] BLOOD CULTURE 1 Collection Time: 12/15/23 5:03 [...] Catch Result Value Ref Range MICRO NUMBER [id number] SPECIMEN QUALITY Adequate SOURCE: (QUEST) URINE, CLEAN [...] for Next scheduled follow-up. documented in this encounterMoberly Regional Medical [id number] Instructions* Patient Instructions* Marilu Bonner NP - [...] history were discussed . documented in this encounterMoberly Regional Medical [id number] Instructions* Patient Instructions* Marilu Bonner NP - [...] options may be available. documented in this encounterMoberly Regional Medical [id number] History of Present illness Narrative* Ophelia James DO - 01/10/2024 2:30 PM EDT Images [...] Diagnosis Date Abdominal pain 11/08/2023 Acute alcoholism ([facility]) 11/08/2023 Acute hypokalemia 11/08/2023 Adenopathy 11/08/2023 Adverse reaction to LUIS inhibitor drug 11/08/2023 Alcoholism ([facility]) 10/2017 [facility] Altered mental status 11/08/2023 Amnesia 11/08/2023 Anemia 11/08/2023 Chemical dependency ([facility]) Chest pain 02/25/2020 [facility]STEMI Chronic nausea 11/08/2023 Costochondral junction syndrome 12/21/2023 Counseling regarding advanced directives 11/08/2023 Depression with anxiety Diarrhea 11/08/2023 Edema 11/08/2023 Gastrointestinal hemorrhage associated with peptic ulcer Heart disease HTN (hypertension) ([facility]) Hyperinflation of lungs Hyponatremia Hyposmolality syndrome 12/21/2023 Hypothyroidism ([facility]) 12/21/2023 Insomnia Internal hemorrhoids Joint pain 11/08/2023 Left inguinal hernia Neck pain 11/08/2023 Pain due to neoplasm 11/08/2023 Pancreatitis 2017 Pneumothorax 11/08/2023 Prostatitis Pyuria 11/08/2023 Recurrent acute pancreatitis Septicemia due to E. coli ([facility]) ([facility]) 01/02/2024 Shortness of breath 11/08/2023 Small cell lung cancer in adult ([facility]) Smoker Suicidal ideation 11/08/2023 Tachycardia [...] COPD. Ophelia James DO documented in this encounterMoberly Regional Medical [id number] History of Present illness Narrative* Rylan Andrea [...] clinically significant. URINE CULTURE, ROUTINE Performed at: [facility] URINE CULTURE, ROUTINE [address], [place] [id number] URINE CULTURE, ROUTINE [employer]: Fernando Brand PhD, Phone: [phone] BLOOD CULTURE 1 Collection Time: 12/15/23 5:03 [...] No follow-ups on file. documented in this encounterMoberly Regional Medical [id number] History of Present illness Narrative* Ryan Kang DO - 12/21/2023 3:57 PM EDT Images from the original note were not included. Patient Name: Kirill Echols Date of : 1965 Date of Service: 12/21/2023 Facility: [facility] Type of Visit: Admission H&P Subjective Kirill Echols is a 58 y.o. male seen today at care home facility for admission H&P. Kirill presents for therapy. He isn't sure why he is here. He thought he was going home. He is having a lot of right sided pain which he rates an 8 out of 10. He was getting oxycodone in the hospitalbut when he was discharged he wasn't given any pain medication. He would like something for pain. It is interfering with sleep. It is hard for him to to therapy because of the pain. He has a history of small cell lung cancer and it is in remission. He is on an antibiotic for pyelonephritis. He lives alone at home. His got transferred to [place] with her job but will be back in 13 months. Past Medical History: Diagnosis Date Personal history of malignant neoplasm of bronchus and lung Septicemia due to E. coli ([facility]) No past surgical history on file. No family history on file. No current outpatient medications on file. No current facility-administered medications for this visit. Allergies: Chlordiazepoxide, Lisinopril, and Sertraline Code Status: FULL CODE Review of Systems Objective BP 108/78 Pulse 96 Temp 36.6 C (97.8 F) Resp 18 Ht 182.9 cm (6') Wt 63.3 kg (139 lb 8 oz) SpO2 92% BMI 18.92 kg/m Physical Exam Exam conducted with a front office help present (Abdelrahman Mohan MS III). Constitutional: General: He is in acute distress (mildly). Appearance: He is normal weight. HENT: Head: Normocephalic. Eyes: General: No scleral icterus. Extraocular Movements: Extraocular movements intact. Conjunctiva/sclera: Conjunctivae normal. Cardiovascular: Rate and Rhythm: Normal rate and regular rhythm. Pulses: Normal pulses. Heart sounds: Normal heart sounds. Pulmonary: Effort: Pulmonary effort is normal. No respiratory distress. Breath sounds: Normal breath sounds. No wheezing, rhonchi or rales. Chest: Chest wall: Tenderness present. Abdominal: Tenderness: There is abdominal tenderness (right flank). Musculoskeletal: Cervical back: Neck supple. Thoracic back: Tenderness present. Back: Lymphadenopathy: Cervical: No cervical adenopathy. Neurological: General: No focal deficit present. Mental Status: He is alert and oriented to person, place, and time. Psychiatric: Attention and Perception: Attention normal. Mood and Affect: Affect is tearful. Speech: Speech normal. Behavior: Behavior is cooperative. Thought Content: Thought content normal. Cognition and Memory: Cognition normal. Judgment: Judgment normal. Assessment/Plan Summary / Assessment / Plan 1. Thoracic outlet syndrome 2. Small cell lung cancer in adult ([facility]) 3. Essential hypertension 4. Adult failure to thrive 5. Costochondral junction syndrome 6. Hyposmolality syndrome 7. Severe episode of recurrent major depressive disorder, without psychotic features ([facility]) 8. Insomnia, unspecified type 9. Hypothyroidism, unspecified type Admit to [facility] for therapies. Continue medications from hospital, antibiotic. I'm going to restart oxycodone 5mg 1 Q8hrs prn pain. He is in obvious pain. Risks and benefits of opioid tx discussed. He is agreeable to start. He cannot take NSAIDs due to CKD/ATN. Therapy evaluation. Full code. Good rehab potential with plans to go home. ELECTRONICALLY SIGNED BY: Ryan Kang DO documented in this encounterWright-Patterson [facility] Center11-23-2023 History of Present illness Narrative* Rylan Andrea MD - 04/05/2023 8:01 PM EST Subjective Patient ID: Kirill Echols is a 57 y.o. male who presents for No chief complaint on file.. HPI Review of Systems Objective Physical Exam Assessment/Plan documented in this encounterMoberly Regional Medical [id number] Progress note Author Yoselin Svitlana [facility] November 07, 2022 11:50am Note Date/Time November 01, 2022 11:[address] [facility] [place] [facility] at [address] [address] Hem/Onc Follow Up Note - OP Signed with Mirlande Patient: Kirill Echols MR#: [id number] : 1965 Acct:[id number] Age/Sex: 57 / M Type: REG RCR Copies to: MD Rylan Vega MD Timothy J Adamowicz, II, DO~ ADDENDUM1 Will initiate monthly B12 injections for B12 deficiency, as well as folic acid 1mg po daily for folate deficiency. Addendum Dictated By: ERINN Yoselin Narinder Shane Addendum Signed By: 11/07/221149 Addendum Cosigned [...] nothing really new going on. HPI: 54-year-old -[place] gentleman history of smoking 40 pack years [...] overwhelming for recurrence. He lives alone in [place]. His children live in [place]. His left him 8 months ago and [...] and urinary tract. Otherwise, there is an Hxuosc-o-Huoq on the left. The lungs demonstrate emphysematous [...] add on appointment after ER visit at [facility] on August 29, 2022 He went [...] for coordination of care (as documented) and ozii-ta-aedc counseling of patient and/or family. [facility] - Medical History Medical History: Medical History [...] 03/01/22 15:44 KB (Rec: 03/01/22 15:45 KB [id number]) Distress Screening Distress score of 4 or [...] % (Auto) 69.5, Lymph % (Auto) 15.0, [place] % (Auto) 12.1, Eos % (Auto) 2.6, Baso % (Auto) 0.8, Nucleat RBC Rel Count 0.2, Neut # (Auto) 4.1, Lymph # (Auto) 0.9 L, [place] # (Auto) 0.7, Eos # (Auto) 0.1, [...] <Electronically signed by ERINN Shane> 11/07/22 [address] [facility] Work Phone: 1(192) 818-273205-23-2023 Hospital Discharge instructionsAmbulatory Orders* Initiate Home Health Time Frame: 1 Day, Location: Determined By Patient * Oncology Histology Time Frame: 10/03/22, Location: Determined By Patient * Oncology Histology Time Frame: 10/17/22, Location: Determined By Patient * Oncology Histology Time Frame: 10/10/22, Location: Determined By Patient [facility] Work Phone: 1(472) 390-314405-09-2023 Progress note Author Estela Varma [facility] September 19, 2022 10:02am Note Date/Time September 19, 2022 9:50am [facility] at [address] [address] Hem/Onc Follow Up Note - OP Signed Patient: Kirill Echols MR#: [id number] : 1965 Acct:[id number] Age/Sex: 57 / M Type: REG RCR [...] Weight loss Follow Up Instructions: f/u wth [employer] in 6 weeks, cbc, cmp b12, folate, [...] concerns voiced at this time. HPI: 54-year-old -[place] gentleman history of smoking 40 pack years [...] overwhelming for recurrence. He lives alone in [place]. His children live in [place]. His left him 8 months ago and [...] and urinary tract. Otherwise, there is an Nzrmir-i-Enlu on the left. The lungs demonstrate emphysematous [...] add on appointment after ER visit at [facility] on August 29, 2022 He went [...] for coordination of care (as documented) and lgnm-oe-ficc counseling of patient and/or family. [facility] - Medical History Medical History: Medical History [...] 03/01/22 15:44 KB (Rec: 03/01/22 15:45 KB [id number]) Distress Screening Distress score of 4 or [...] by Estela Varma II, DO> 09/19/22 [address] [facility] Work Phone: 1(978) 900-550604-24-2023 Progress note Author Dixie Olivia [facility] September 04, 2022 12:17pm Note Date/Time September 04, 2022 12: 04pm [facility] [place] [address] Hem/Onc Follow Up Note - OP Signed Patient: Kirill Echols MR#: [id number] : 1965 Acct:[id number] Age/Sex: 57 / M Type: REG RCR Copies to: MD Rylan Vega MD~ Subjective Date/Time of Service: Date of Service: 09/04/2022 Time of Service: 11:56 Chief Complaint: Patient is here today for a follow up visit for small cell lung cancer. He went to [place] ER for chest pressure 08-27-[address] scan for review HPI: 54-year-old -[place] gentleman history of smoking 40 pack years [...] overwhelming for recurrence. He lives alone in [place]. His children live in [place]. His left him 8 months ago and [...] and urinary tract. Otherwise, there is an Mlffqh-l-Mixd on the left. The lungs demonstrate emphysematous [...] He is considering moving back down to [facility] where he is from. 02/27/22 he didnt [...] add on appointment after ER visit at [facility] on August 29, 2022 He went [...] Narrative: Residual and chronic left-sided chest complaints. [facility] - Medical History Medical History: Medical History [...] Reviewed 06/16/22 @ 19:33 by Jackie Fraga ANP-BC) H/O vasectomy H/O wrist surgery Right [...] 03/01/22 15:44 KB (Rec: 03/01/22 15:45 KB [id number]) Distress Screening Distress score of 4 or [...] add on appointment after ER visit at [facility] on August 29, 2022 He went [...] for coordination of care (as documented) and fxza-hl-leze counseling of patient and/or family. Dictated By: Dixie Olivia APRN DD/ 1156 Signed By: <Electronically signed by ERINN Olivia> 09/04/22 [address] [facility] Work Phone: [phone]) 297-589702-09-2023 Progress note Author Dixie Olivia [facility] June 22, 2022 2:24pm Note Date/Time June 22, 2022 2 :16pm [facility] at [address] [address] Hem/Onc Follow Up Note - OP Signed Patient: Kirill Echols MR#: [id number] : 1965 Acct:[id number] Age/Sex: 57 / M Type: REG RCR Copies to: MD Rylan Vega MD~ Subjective Date/Time of Service: Date of Service: 06/22/2022 Time of Service: 14:09 Chief Complaint: Patient is here for a 2 month follow up with, had chest tube placed 06/16/2022. No concerns voiced at this time. HPI: 54-year-old -[place] gentleman history of smoking 40 pack years [...] overwhelming for recurrence. He lives alone in [place]. His children live in [place]. His left him 8 months ago and [...] and urinary tract. Otherwise, there is an Cyjgum-a-Jvfm on the left. The lungs demonstrate emphysematous [...] He is considering moving back down to [facility] [place] he is from. 02/27/22 he didnt [...] diaphoresis. No orthostasis or dizziness or palpitations. [facility] - Medical History Medical History: Medical History [...] 03/01/22 15:44 KB (Rec: 03/01/22 15:45 KB [id number]) Distress Screening Distress score of 4 or [...] for coordination of care (as documented) and jyzy-kw-kolq counseling of patient and/or family. Dictated By: Dixie Olivia APRN DD/ 1409 Signed By: <Electronically signed by ERINN Olivia> 06/22/22 [address] [facility] Work Phone: 1([phone]) 733-997102-02-2023 Evaluation note* Encounter Date Diagnosis Assessment Notes [...] cell carcinoma of lung (ICD-10 - C34.90) [employer] Other 01-18-2023 Evaluation note* Encounter Date Diagnosis Assessment Notes Treatment Notes Treatment Clinical Notes May, Small cell carcinoma of lung (ICD-10 - C34.90) Please let me know lung CT scan to review schedule thoracentesis if needed May, Chronic obstructive pulmonary disease, unspecified COPD type (ICD-10 - J44.9) May, Shortness of breath (ICD-10 - R06.02) May, Pleural effusion (ICD-10 - J90) [employer] Other 12-02-2022 Progress note Author Estela Varma [facility] April 14, 2022 12:02pm Note Date/Time April 14, 2022 1 1:50am [facility] [place] [address] Hem/Onc Follow Up Note - OP Signed Patient: Kirill Echols MR#: [id number] : 1965 Acct:[id number] Age/Sex: 56 / M Type: REG RCR [...] concerns voiced at this time. HPI: 54-year-old -[place] gentleman history of smoking 40 pack years [...] overwhelming for recurrence. He lives alone in [place]. His children live in [place]. His left him 8 months ago and [...] and urinary tract. Otherwise, there is an Svcypo-e-Epfs on the left. The lungs demonstrate emphysematous [...] He is considering moving back down to [facility] where he is from. 02/27/22 he didnt [...] for coordination of care (as documented) and hcpk-rh-kvfu counseling of patient and/or family. [facility] - Medical History Medical History: Medical History [...] 03/01/22 15:44 KB (Rec: 03/01/22 15:45 KB [id number]) Distress Screening Distress score of 4 or [...] % (Auto) 71.4, Lymph % (Auto) 16.2, [place] % (Auto) 8.6, Eos % (Auto) 2.9, Baso % (Auto) 0.9, Neut # (Auto) 4.5, Lymph # (Auto) 1.0, [place] # (Auto) 0.5, Eos# (Auto) 0.2, Baso [...] Estela Varma II, DO> 04/14/22 [address] [facility] Work Phone: [phone]) 950-310710-17-2022 Progress note Author Estela Varma [facility] February 27, 2022 2:56pm Note Date/Time February 27, 2022 2 :51pm [facility] [place] [address] Hem/Onc Follow Up Note - OP Signed Patient: Kirill Echols MR#: [id number] : 1965 Acct:[id number] Age/Sex: 56 / M Type: REG RCR [...] for review. No concerns voiced. HPI: 54-year-old -[place] gentleman history of smoking 40 pack years [...] overwhelming for recurrence. He lives alone in [place]. His children live in [place]. His left him 8 months ago and [...] and urinary tract. Otherwise, there is an Vywteo-m-Dkhh on the left. The lungs demonstrate emphysematous [...] He is considering moving back down to [facility] where he is from. 02/27/22 he didnt [...] for coordination of care (as documented) and bktw-le-ajzb counseling of patient and/or family. [facility] - Medical History Medical History: Medical History [...] 09/14/21 14:56 KB (Rec: 09/14/21 14:59 KB [id number]) Distress Screening Distress score of 4 or more discussed Yes with patient? Distress screening follow up: Spoke with patient via phone. Patient is doing ok at this time. Recently had a heart cath which was negative. He is happpy that his scans are good. Dr. Perez is working on getting him into [facility]. - Lab Results Diagram of Most [...] Estela Varma II, DO> 02/27/22 [address] [facility] Work Phone: [phone]) 278-908705-03-2022 Evaluation note* Encounter Date Diagnosis Assessment Notes [...] Dr. Andrea to discuss plan of care. [employer] Other 04-25-2022 Progress note Author Estela Varma [facility] September 05, 2021 6:32pm Note Date/Time September 05, 2021 12: 28pm [facility] [place] [address] Hem/Onc Follow Up Note - OP Signed Patient: Kirill Echols MR#: [id number] : 1965 Acct:[id number] Age/Sex: 56 / M Type: REG RCR [...] concerns voiced at this time. HPI: 54-year-old -[place] gentleman history of smoking 40 pack years [...] overwhelming for recurrence. He lives alone in [place]. His children live in [place]. His left him 8 months ago and [...] and urinary tract. Otherwise, there is an Tfwgzp-t-Njow on the left. The lungs demonstrate emphysematous [...] He is considering moving back down to [facility] where he is from. - Physical Exam [...] for coordination of care (as documented) and svfb-gi-znad counseling of patient and/or family. [facility] - Medical History Medical History: Medical History [...] 02/02/21 13:22 KB (Rec: 02/02/21 13:23 KB [id number]) Distress Screening Distress score of 4 or [...] % (Auto) 69.0, Lymph % (Auto) 18.2, [place] % (Auto) 7.9, Eos % (Auto) 4.2, Baso % (Auto) 0.7, Neut # (Auto) 3.5, Lymph # (Auto) 0.9 L, [place] # (Auto) 0.4, Eos # (Auto) 0.2, [...] <Electronically signed by Estela Varma II DO> 09/05/21 18[address] [facility] Work Phone: 1([phone]) [phone] Progress note Author Estela Varma [facility] August 22, 2021 3:19pm Note Date/Time August 22, 2021 2:[address] [facility] [place] [address] Hem/Onc Follow Up Note - OP Signed Patient: Kirill Echols MR#: [id number] : 1965 Acct:[id number] Age/Sex: 56 / M Type: REG RCR [...] been having shortness of breath HPI: 54-year-old -[place] gentleman history of smoking 40 pack years [...] overwhelming for recurrence. He lives alone in [place]. His children live in [place]. His left him 8 months ago and [...] for coordination of care (as documented) and vvtg-yo-qskr counseling of patient and/or family. [facility] - Medical History Medical History: Medical History [...] 02/02/21 13:22 KB (Rec: 02/02/21 13:23 KB [id number]) Distress Screening Distress score of 4 or [...] % (Auto) 62.5, Lymph % (Auto) 20.1, [place] % (Auto) 11.9, Eos % (Auto) 4.8, Baso % (Auto) 0.7, Neut # (Auto) 3.0, Lymph # (Auto) 1.0, [place] # (Auto) 0.6, Eos # (Auto) 0.2, [...] signed by Estela Varma II, DO> 08/22/21 [address] [facility] Work Phone: 1(173) 655-375111-23-2021 Progress note Author George Ash [facility] April 05, 2021 12:34pm Note Date/Time April 05, 2021 12:28pm [facility] [place] [id number] Hem/Onc Follow Up Note - OP Signed Patient: Kirill Echols MR#: [id number] : 1965 Acct:[id number] Age/Sex: 55 / M Type: REG RCR [...] has seen cardiology and was evaluated in [place] including a stress test. Nothing ever came [...] diaphoresis. No orthostasis or dizziness or palpitations. [facility] - Medical History Medical History: Medical History [...] 02/02/21 13:22 KB (Rec: 02/02/21 13:23 KB [id number]) Distress Screening Distress score of 4 or [...] % (Auto) 74.7, Lymph % (Auto) 11.7, [place] % (Auto) 10.3, Eos % (Auto) 2.5, Baso % (Auto) 0.8, Neut # (Auto) 6.1, Lymph # (Auto) 1.0, [place] # (Auto) 0.9H, Eos # (Auto) 0.2, [...] had extensive work-up in the past in [place] including stress test. He has seen cardiology. [...] for coordination of care (as documented) and wmny-mx-zmrb counseling of patient and/or family. Dictated By: George Ash MD DD/ 1227 Signed By: <Electronically signed by MD George Ash> 04/05/21 1236 [facility] Work Phone: 1([phone]) 167-110609-28-2021 Progress note Author George Ash [facility] February 08, 2021 11:42am Note Date/Time February 08, 2021 11:41am [facility] at [address] [address] Hem/Onc Follow Up Note - OP Signed Patient: Kirill Echols MR#: [id number] : 1965 Acct:[id number] Age/Sex: 55 / M Type: REG RCR [...] & no additional complaints except as documented [facility] - Medical History Medical History: Medical History [...] for coordination of care (as documented) and zaqv-ts-mbvo counseling of patient and/or family. Dictated By: George Ash MD DD/ 1140 Signed By: <Electronically signed by MD George Ash> 02/08/21 1142 [facility] Work Phone: 1(478) 533-967109-21-2021 Progress note Author George Ash [facility] February 01, 2021 11:20am Note Date/Time February 01, 2021 11:19am [facility] [place] [address] Hem/Onc Follow Up Note - OP Signed Patient: Kirill Echols MR#: [id number] : 1965 Acct:[id number] Age/Sex: 55 / M Type: REG RCR [...] & no additional complaints except as documented [facility] - Medical History Medical History: Medical History [...] % (Auto) 76.8, Lymph % (Auto) 13.5, [place] % (Auto) 7.5, Eos % (Auto) 1.4, Baso % (Auto) 0.8, Neut # (Auto) 5.1, Lymph # (Auto) 0.9 L, [place] # (Auto) 0.5, Eos # (Auto) 0.1, [...] for coordination of care (as documented) and mquh-oa-zorf counseling of patient and/or family. Dictated By: George Ash MD DD/ 1116 Signed By: <Electronically signed by MD George Ash> 02/01/21 [address] [facility] Work Phone: 1([phone]) 143-155907-27-2021 Progress note Author George Ash [facility] December 07, 2020 11:02am Note Date/Time December 07, 2020 10:[address] [facility] [place] [address] Hem/Onc Follow Up Note - OP Signed Patient: Kirill Echols MR#: [id number] : 1965 Acct:[id number] Age/Sex: 55 / M Type: REG RCR [...] with RIGHT supraclavicular region. These may be registered representative of metastatic lymph nodes. There is [...] % (Auto) 71.8, Lymph % (Auto) 12.7, [place] % (Auto) 10.8, Eos % (Auto)3.9, Baso % (Auto) 0.8, Neut # (Auto) 4.8, Lymph # (Auto) 0.9 L, [place] # (Auto) 0.7, Eos # (Auto) 0.3, [...] for coordination of care (as documented) and xzjj-fx-kzsl counseling of patient and/or family. Dictated By: George Ash MD DD/ 1039 Signed By: <Electronically signed by MD George Ash> 12/07/20 1102 [facility] Work Phone: [phone]) [phone] Progress note Author Santhosh Chan [facility] September 09, 2020 11:30am Note Date/Time September 09, 2020 11: 21am [facility] at [address] [address] Hem/Onc Follow Up Note - OP Signed Patient: Kirill Echols MR#: [id number] : 1965 Acct:[id number] Age/Sex: 55 / M Type: REG RCR [...] for coordination of care (as documented) and whlr-ng-ebtf counseling of patient and/or family. Dictated By: Santhosh Chan MD DD/ 1118 Signed By: <Electronically signed by Santhosh Chan MD> 09/09/20 1130 [facility] Work Phone: 1([phone]) 245-896804-22-2021 Progress note Author Santhosh Chan [facility] September 02, 2020 11:55am Note Date/Time September 02, 2020 11: 53am [facility] [place] [address] Hem/Onc Follow Up Note - OP Signed Patient: Kirill Echols MR#: [id number] : 1965 Acct:[id number] Age/Sex: 55 / M Type: REG RCR [...] for coordination of care (as documented) and kkuc-ye-stww counseling of patient and/or family. Dictated By: Santhosh Chan MD DD/ 1151 Signed By: <Electronically signed by Santhosh Chan MD> 09/02/20 1155 [facility] Work Phone: [phone] Progress note Author Santhosh Chan [facility] July 06, 2020 1:19pm Note Date/Time July 06, 2020 1:17pm [facility] [place] [address] Hem/Onc Follow Up Note - OP Signed Patient: Kirill Echols MR#: [id number] : 1965 Acct:[id number] Age/Sex: 55 / M Type: REG RCR [...] % (Auto) 65.3, Lymph % (Auto) 17.0, [place] % (Auto) 13.4, Eos % (Auto) 3.8, Baso % (Auto) 0.5, Neut # (Auto) 2.9, Lymph # (Auto) 0.7 L, [place] # (Auto) 0.6, Eos # (Auto) 0.2, [...] for coordination of care (as documented) and gpew-tm-raxp counseling of patient and/or family. Dictated By: Santhosh Chan MD DD/ 15 Signed By: <Electronically signed by Santhosh Chan MD> 07/06/20 1319 [facility] Work Phone: 1([phone] 324-332302-02-2021 Progress note Author Santhosh Chan [facility] June 15, 2020 4:23pm Note Date/Time June 15, 2020 3 :28pm [facility] [place] [address] Hem/Onc Follow Up Note - OP Signed Patient: Kirill Echols MR#: [id number] : 1965 Acct:[id number] Age/Sex: 55 / M Type: REG RCR [...] & no additional complaints except as documented [facility] - Medical History Medical History: Medical History [...] % (Auto) 57.8, Lymph % (Auto) 19.4, [place] % (Auto) 16.6, Eos % (Auto) 5.5, Baso % (Auto) 0.7, Neut # (Auto) 2.1, Lymph # (Auto) 0.7 L, [place] # (Auto) 0.6, Eos # (Auto) 0.2, [...] for coordination of care (as documented) and qxmk-vf-ibpu counseling of patient and/or family. Dictated By: Santhosh Chan MD DD/ 1528 Signed By: <Electronically signed by Santhosh Chan MD> 06/15/20 5673 [facility] Work Phone: [phone] Progress note Author George Ash [facility] April 06, 2020 3:03pm Note Date/Time April 06, 2020 3:00pm [facility] [place] [address] Hem/Onc Follow Up Note - OP Signed Patient: Kirill Echols MR#: [id number] : 1965 Acct:[id number] Age/Sex: 54 / M Type: REG RCR [...] PET scan. Patient: Kirill Echols MR#: [id number] : 1965 Acct:[id number] Age/Sex: 54 / M ADM Date: 0 Loc: XT Room: Type: [facility] RCR Attending Dr: George Ash MD Ordering Provider: George Ash MD Date of Service: 03/23/20 CT/CT chest w con: restaging,C34.90 ([id number]) CT/CT abdomen pelvis w con: restaging,C34.90 Copies [...] proximal great vessels. Patient has a left-sided Yucvwh-q-Frmh catheter. There is continued ill-defined soft tissue [...] the findings below: Patient: Kirill Echols MR#: [id number] : 1965 Acct:[id number] Age/Sex: 54 / M ADM Date: 0 [...] with RIGHT supraclavicular region. These may be registered representative of metastatic lymph nodes. 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 [facility] - Medical History Medical History: Medical History [...] for coordination of care (as documented) and iwni-xb-xrob counseling of patient and/or family. Dictated By: George Ash MD DD/ 1459 Signed By: <Electronically signed by MD George Ash> 04/06/20 2803 [facility] Work Phone: [phone] Progress note Author George Ash [facility] March 02, 2020 11:39am Note Date/Time March 02, 2020 1 1:38am [facility] [place] [address] Hem/Onc Follow Up Note - OP Signed Patient: Kirill Echols MR#: [id number] : 1965 Acct:[id number] Age/Sex: 54 / M Type: REG RCR [...] the findings below: Patient: Kirill Echols MR#: [id number] : 1965 Acct:[id number] Age/Sex: 54 / M ADM Date: 0 [...] with RIGHT supraclavicular region. These may be registered representative of metastatic lymph nodes. There is [...] Franklin Gomes M.D.10/31/2019 2:44 PM Dictation Location: [facility] The patient was seen by Dr. James and evaluated by Dr. Duval. 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 [facility] - Medical History Medical History: Medical History [...] Neut % (Auto)79.5, Lymph % (Auto) 9.8, [place] % (Auto) 8.4, Eos % (Auto) 1.7, Baso % (Auto) 0.6, Neut # (Auto) 6.1, Lymph # (Auto) 0.8 L, [place] # (Auto) 0.6, Eos # (Auto) 0.1, [...] % (Auto) N/A, Lymph % (Auto) N/A, [place] % (Auto) N/A, Eos % (Auto) N/A, Baso % (Auto) N/A, Neut # (Auto) N/A, Lymph # (Auto) N/A, [place] # (Auto) N/A, Eos # (Auto) N/A, [...] for coordination of care (as documented) and dxtl-ed-uifv counseling of patient and/or family. Dictated By: Georeg Ash MD DD/ 34 Signed By: <Electronically signed by MD George Ash> 03/02/20 1139 [facility] Work Phone: [phone] Progress note Author Leoncio Kowalski [facility] February 25, 2020 3:54pm Note Date/Time February 25, 2020 2 :49pm 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 He has chronic [...] <Electronically signed by Leoncio Kowalski MD> 02/25/20 4086 [facility] Work Phone: [phone] Progress note Author George Ash [facility] February 10, 2020 1:23pm Note Date/Time February 10, 2020 1:20pm [facility] [place] [address] Hem/Onc Follow Up Note - OP Signed Patient: Kirill Echols MR#: [id number] : 1965 Acct:[id number] Age/Sex: 54 / M Type: REG RCR [...] the findings below: Patient: Kirill Echols MR#: [id number] : 1965 Acct:[id number] Age/Sex: 54 / M ADM Date: 0 [...] with RIGHT supraclavicular region. These may be registered representative of metastatic lymph nodes. There is [...] Franklin Gomes M.D.10/31/2019 2:44 PM Dictation Location: [facility] The patient was seen by Dr. James and evaluated by Dr. Duval. 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 [facility] - Medical History Medical History: Medical History [...] % (Auto) 71.8, Lymph % (Auto) 16.0, [place] % (Auto) 10.5, Eos % (Auto) 0.9, Baso % (Auto) 0.8, Neut # (Auto) 4.8, Lymph # (Auto) 1.1, [place] # (Auto) 0.7, Eos # (Auto) 0.1, Baso # (Auto) 0.1, Nucleated RBC % (auto) 0.1 02/04/20 08:35: WBC 13.5 H, Corrected WBC 13.5 H, RBC 3.87 L, Hgb 12.3 L, Hct 38.1 L, MCV 98.6, MCH 31.7, MCHC 32.2 L, RDW 21.3 H, Plt Count 264, MPV 7.4, Neut % (Auto) 72.3, Lymph % (Auto) 7.8, [place] % (Auto) 18.7, Eos % (Auto) 0.3, Baso % (Auto) 0.9, Neut # (Auto) 9.7 H, Lymph # (Auto) 1.1, [place] # (Auto) 2.5 H,Eos # (Auto) 0.0, [...] for coordination of care (as documented) and xest-gw-hyhh counseling of patient and/or family. Dictated By: George Ash MD DD/ 1319 Signed By: <Electronically signed by MD George Ash> 02/10/20 1323 [facility] Work Phone: [phone] Progress note Author George Ash [facility] January 20, 2020 11:30am Note Date/Time January 20, 2020 11:28am [facility] [place] [address] Hem/Onc Follow Up Note - OP Signed Patient: Kirill Echols MR#: [id number] : 1965 Acct:[id number] Age/Sex: 54 / M Type: REG RCR [...] on pro which I did add today. [facility] [place] hospice is following him now for palliative pain control and this is clearly better. He is off of steroids. His synovitis and arthritis have resolved. [facility] - Medical History Medical History: Medical History [...] for coordination of care (as documented) and ibyc-wc-fkip counseling of patient and/or family. Dictated By: George Ash MD DD/ 1127 Signed By: <Electronically signed by MD George Ash> 01/20/20 1130 [facility] Work Phone: [phone] Progress note Author George Ash [facility] December 30, 2019 10:35am Note Date/Time December 30, 2019 10 :01am [facility] [place] [id number] Hem/Onc Follow Up Note - OP Signed Patient: Kirill Echols MR#: [id number] : 1965 Acct:[id number] Age/Sex: 54 / M Type: REG RCR [...] I have instructed him to get some wzeg-vmt-ubymqxt Prilosec for this. He has some type [...] the findings below: Patient: Kirill Echols MR#: [id number] : 1965 Acct:[id number] Age/Sex: 54 / M ADM Date: 0 [...] with RIGHT supraclavicular region. These may be registered representative of metastatic lymph nodes. There is [...] Franklin Gomes M.D.10/31/2019 2:44 PM Dictation Location: [facility] The patient was seen by Dr. James and evaluated by Dr. Duval. 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 [facility] - Medical History Medical History: Medical History [...] % (Auto) N/A, Lymph % (Auto) N/A, [place] % (Auto) N/A, Eos % (Auto) N/A, Baso % (Auto) N/A, Neut # (Auto) N/A, Lymph # (Auto) N/A, [place] # (Auto) N/A, Eos # (Auto) N/A, [...] for coordination of care (as documented) and brtx-gr-xnfr counseling of patient and/or family. Dictated By: George Ash MD DD/ 0959 Signed By: <Electronically signed by MD George Ash> 12/30/19 1034 [facility] Work Phone: [phone] Progress note Author George Ash [facility] December 23, 2019 10:25am Note Date/Time December 23, 2019 10 :18am [facility] [place] [address] Hem/Onc Follow Up Note - OP Signed Patient: Kirill Echols MR#: [id number] : 1965 Acct:[id number] Age/Sex: 54 / M Type: REG RCR [...] the findings below: Patient: Kirill Echols MR#: [id number] : 1965 Acct:[id number] Age/Sex: 54 / M ADM Date: 0 [...] with RIGHT supraclavicular region. These may be registered representative of metastatic lymph nodes. There is [...] Franklin Gomes M.D.10/31/2019 2:44 PM Dictation Location: [facility] The patient was seen by Dr. James and evaluated by Dr. Duval. 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 [facility] - Medical History Medical History: Medical History [...] for coordination of care (as documented) and eyhl-nx-fldr counseling of patient and/or family. Dictated By: George Ash MD DD/ 1015 Signed By: <Electronically signed by MD George Ash> 12/23/19 1025 [facility] Work Phone: [phone] Progress note Author George Ash [facility] December 16, 2019 11:08am Note Date/Time December 16, 2019 11: 01am [facility] [place] [address] Hem/Onc Follow Up Note - OP Signed Patient: Kirill Echols MR#: [id number] : 1965 Acct:[id number] Age/Sex: 54 / M Type: REG RCR [...] the findings below: Patient: Kirill Echols MR#: [id number] : 1965 Acct:[id number] Age/Sex: 54 / M ADM Date: 0 [...] with RIGHT supraclavicular region. These may be registered representative of metastatic lymph nodes. There is [...] Franklin Gomes M.D.10/31/2019 2:44 PM Dictation Location: [facility] The patient was seen by Dr. James and evaluated by Dr. Duval. 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 [facility] - Medical History Medical History: Medical History [...] % (Auto) 33.7, Lymph % (Auto) 41.5, [place] % (Auto) 21.4, Eos % (Auto) 2.0, Baso % (Auto) 1.4, Neut # (Auto) 1.6 L, Lymph # (Auto) 1.9, [place] # (Auto) 1.0 H, Eos # (Auto) [...] % (Auto) 21.1, Lymph % (Auto) 51.6, [place] % (Auto) 24.2, Eos % (Auto) 1.9, Baso % (Auto) 1.2, Neut # (Auto) 0.5 L, Lymph # (Auto) 1.3, [place] # (Auto) 0.6, Eos # (Auto) 0.0, [...] for coordination of care (as documented) and cjio-sp-huyi counseling of patient and/or family. Dictated By: George Ash MD DD/ 1057 Signed By: <Electronically signed by MD George Ash> 12/16/19 1102 [facility] Work Phone: [phone] Progress note Author George Ash [facility] December 09, 2019 11:13am Note Date/Time December 09, 2019 11:[address] [facility] [place] [address] Hem/Onc Follow Up Note - OP Signed Patient: Kirill Echols MR#: [id number] : 1965 Acct:[id number] Age/Sex: 54 / M Type: REG RCR [...] the findings below: Patient: Kirill Echols MR#: [id number] : 1965 Acct:[id number] Age/Sex: 54 / M ADM Date: 0 [...] with RIGHT supraclavicular region. These may be registered representative of metastatic lymph nodes. There is [...] Franklin Gomes M.D.10/31/2019 2:44 PM Dictation Location: [facility] The patient was seen by Dr. James and evaluated by Dr. Duval. 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 [facility] - Medical History Medical History: Medical History [...] 7 Days 12/09/19 09:14: PHA Creatinine Clear 109.1592356147, Sodium 130 L, Potassium 4.3, Chloride 99, [...] at thattime as well. His dose of MEDICINE WORKER-16 is adjusted to 50% due to liver [...] for coordination of care (as documented) and vhzo-lu-ndnt counseling of patient and/or family. Dictated By: George Ash MD DD/ 1109 Signed By: <Electronically signed by MD George Ash> 12/09/19 1113 [facility] Work Phone: [phone] Progress note Author George Ash [facility] November 25, 2019 11:06am Note Date/Time November 25, 2019 11:[address] [facility] [place] [address] Hem/Onc Follow Up Note - OP Signed Patient: Kirill Echols MR#: [id number] : 1965 Acct:[id number] Age/Sex: 54 / M Type: REG RCR [...] the findings below: Patient: Kirill Echols MR#: [id number] : 1965 Acct:[id number] Age/Sex: 54 / M ADM Date: 0 [...] with RIGHT supraclavicular region. These may be registered representative of metastatic lymph nodes. There is [...] Franklin Gomes M.D.10/31/2019 2:44 PM Dictation Location: [facility] The patient was seen by Dr. James and evaluated by Dr. Duval. 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 The patient does have evidence of hyponatremia. It is somewhat mild. He does have clubbing on physical exam. [facility] - Medical History Medical History: Medical History [...] % (Auto) 62.6, Lymph % (Auto) 28.7, [place] % (Auto) 6.5, Eos % (Auto) 1.5, Baso % (Auto) 0.7, Neut # (Auto) 4.6, Lymph # (Auto) 2.1, [place] # (Auto) 0.5, Eos # (Auto) 0.1, Baso # (Auto) 0.0, Nucleated RBC % (auto) 0.2 11/24/19 07:33: PHA Creatinine Clear 75.4460158278, Sodium 128 L, Potassium 3.7,Chloride 93 L, [...] Not detected 11/18/19 14:04: PHA Creatinine Clear 68.5686428944, Sodium 128 L, Potassium 4.8,Chloride 93 L, [...] Neut % (Auto)N/A, Lymph % (Auto) N/A, [place] % (Auto) N/A, Eos % (Auto) N/A, Baso % (Auto) N/A,Neut # (Auto) N/A, Lymph # (Auto) N/A, [place] # (Auto) N/A, Eos # (Auto) N/A, [...] for coordination of care (as documented) and btva-fm-hubk counseling of patient and/or family. Dictated By: George Ash MD DD/ 1100 Signed By: <Electronically signed by MD George Ash> 11/25/19 1106 [facility] Work Phone: [phone] Consult note Author Leoncio Kowalski [facility] November 20, 2019 2:44pm Note Date/Time November 20, 2019 1:38p m 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 [place] [address] Hem/Onc Follow Up Note - OP Signed Patient: Kirill Echols MR#: [id number] : 1965 Acct:[id number] Age/Sex: 54 / M Type: REG RCR [...] see Dr. Duval tomorrow for consideration of Fjqtym-i-Ratr. Chemotherapy education will be tomorrow November 20. [...] the findings below: Patient: Kirill Echols MR#: [id number] : 1965 Acct:[id number] Age/Sex: 54 / M ADM Date: 0 [...] with RIGHT supraclavicular region. These may be registered representative of metastatic lymph nodes. There is [...] Franklin Gomes M.D.10/31/2019 2:44 PM Dictation Location: [facility] The patient was seen by Dr. James and evaluated by Dr. Duval. 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 The patient does have evidence of hyponatremia. It is somewhat mild. He does have clubbing on physical exam. [facility] - Medical History Medical History: Medical History [...] 7 Days 11/18/19 14:04: PHA Creatinine Clear 68.8983230677, Sodium 128 L, Potassium 4.8,Chloride 93 L, [...] Neut % (Auto)N/A, Lymph % (Auto) N/A, [place] % (Auto) N/A, Eos % (Auto) N/A, Baso % (Auto) N/A,Neut # (Auto) N/A, Lymph # (Auto) N/A, [place] # (Auto) N/A, Eos # (Auto) N/A, [...] cancer The patient will be seen for Jysmol-q-Yglk tomorrow. Head CT has been ordered and [...] for coordination of care (as documented) and uljd-ek-vkzx counseling of patient and/or family. Dictated By: George Ash MD DD/ 1104 Signed By: <Electronically signed by MD George Ash> 11/20/19 1112 [facility] Work Phone: [phone] Consult note Author George Ash [facility] November 18, 2019 2:02pm Note Date/Time November 18, 2019 1:50p [facility] at [address] [address] Hem/Onc Consult Note - OP Signed Patient: Kirill Echols MR#: [id number] : 1965 Acct:[id number] Age/Sex: 54 / M Type: REG RCR [...] the findings below: Patient: Kirill Echols MR#: [id number] : 1965 Acct:[id number] Age/Sex: 54 / M ADM Date: 0 Loc: Room: Type: [facility] Attending Dr: Varghese Duval MD Ordering Provider: Varghese Duval MD Date of Service: 10/31/19 PET/PET tumor init tx strat sb-mt: R91.1 R91.8 R59.1 Copies to: MD Rylan Vega MD WardFranklin S DO~ PET/CT FUSION IMAGING CLINICAL INFORMATION: [...] with RIGHT supraclavicular region. These may be registered representative of metastatic lymph nodes. There is [...] Franklin Gomes M.D.10/31/2019 2:44 PM Dictation Location: [facility] The patient was seen by Dr. James and evaluated by Dr. Duval. 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 I was called by Dr. Duval today 11/18/2019 and arrange to see the patient immediately. The patient does have evidence of hyponatremia. It is somewhat mild. He does have clubbing on physical exam. [facility] - Medical History Medical History: Medical History [...] for immediate head CT. He will need Imdyhp-d-Cyax placement and I will refer him to Dr. Duval for this. The patient has fairly limited disease in the chest and mediastinum and may very well be a candidate for combined modality therapy with chemotherapy and radiation. I will refer himto radiation oncology here at [facility]. We will recommend to him immediate chemotherapy [...] for coordination of care (as documented) and qxhr-qe-qjhy counseling of patient and/or family. Dictated By: George Ash MD DD/ 1349 Signed By: <Electronically signed by MD George Ash> 11/18/19 1402 [facility] Work Phone: Evaluation noteNo assessment information available [facility] Work Phone: evaluation note* Diagnosis Onset Date Resolution Status Anemia due to chemotherapy a cute Anxiety acute Cancer-related pain acute Chest pain acute Diarrhea acute Edema acute Joint pain acute Neck pain acute Small cell lung cancer chron ic [facility] Work Phone: Evaluation note* Diagnosis Onset Date Resolution Status Anemia due to chemotherapy a cute Anxiety acute Cancer-related pain acute Chest pain acute Diarrhea acute Edema acute Joint pain acute Neck pain acute Small cell lung cancer chron ic Chest pain acute [facility] Work Phone: Evaluation note* Diagnosis Onset Date Resolution Status Chest pain acute Small cell lung cancer acute Anemia due to chemotherapy a cute Anxiety acute Cancer-related pain acute Chest pain acute Diarrhea acute Edema acute Joint pain acute Neck pain acute Small cell lung cancer chron ic [facility] Work Phone: Evaluation note* Diagnosis Onset Date Resolution Status Chest pain acute Small cell lung cancer acute Anemia due to chemotherapy a cute Anxiety acute Cancer-related pain acute Chest pain acute Diarrhea acute Edema acute Joint pain acute Neck pain acute Small cell lung cancer chron ic Small cell lung cancer acute [facility] Work Phone: Evaluation note* Diagnosis [...] Diarrhea resolved Edema resolved Neck pain resolved [facility] Work Phone: Evaluation note* Diagnosis Onset Date Resolution Status Cancer-related pain acute Chronic hyponatremia acute Joint pain acute Shortness of breath acute Weight loss acute Small cell lung cancer chron ic Anxiety resolved Chest pain resolved Diarrhea resolved Edema resolved Neck pain resolved [facility] Work Phone: Evaluation note* Diagnosis Onset Date Resolution Status Cancer-related pain acute Chronic hyponatremia acute Joint pain acute Shortness of breath acute Weight loss acute Small cell lung cancer chron ic Anxiety resolved Chest pain resolved Diarrhea resolved Edema resolved Neck pain resolved Small cell lung cancer chron ic [facility] Work Phone: Evaluation note* Diagnosis Onset Date Resolution Status Abdominal cramping acute GERD (gastroesophageal reflux disease) acute Hx of small bowel obstruction acute Weight loss acute Constipation noneactive [facility] Work Phone: Evaluation note* Diagnosis Chronic obstructive pulmonary disease, unspecified COPD type (CMS/HCC)- Primary Person consulting for explanation of examination or test finding Alcoholic liver disease, unspecified (CMS/HCC) Atherosclerosis of aorta (CMS/HCC) Atherosclerosis of aorta 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) Current moderate episode of major depressive disorder without prior episode (HCC) (CMS/HCC) documented in this encounter [facility] HealthcareEvaluation note* Diagnosis Essential hypertension (CMS/HCC)- Primary Unspecified essential hypertension Burning with urination Dysuria Urinary tract infection with hematuria, site unspecified Gastroesophageal reflux disease without esophagitis Esophageal reflux 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) Nausea Nausea alone Generalized abdominal pain Abdominal pain, generalized Primary pulmonary hypertension (CMS/HCC) Primary pulmonary hypertension documented in this encounter [facility] HealthcareEvaluation note* Diagnosis Chronic obstructive pulmonary disease, unspecified COPD type (CMS/HCC)- Primary Small pleural effusion Small cell lung cancer in adult (CMS/HCC) Shortness of breath documented in this encounter [facility] HealthcareEvaluation note* Diagnosis Need for follow-up care [...] specified erythematous conditions documented in this encounter [facility] HealthcareEvaluation note* Diagnosis Primary insomnia- Primary Persistent disorder of initiating or maintaining sleep Primary pulmonary hypertension (CMS/HCC) Primary pulmonary hypertension Hair loss Unspecified alopecia Dry skin Other symptoms involving skin and integumentary tissues 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) documented in this encounter [facility]* Diagnosis Thoracic outlet syndrome- Primary Brachial plexus lesions Small cell lung cancer in adult ([facility]-HCC) Essential hypertension Unspecified essential hypertension Adult failure to thrive 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 syndrome Hyposmolality and/or hyponatremia Severe episode of recurrent major depressive disorder, without psychotic features ([facility]-HCC) Insomnia, unspecified type Hypothyroidism, unspecified type documented in this encounter [facility]* Diagnosis Epidermal inclusion cyst- Primary Sebaceous cyst Other specified erythematous conditions documented in this encounter [facility]* Diagnosis Encounter for removal of sutures- Primary documented in this encounter [facility]* Diagnosis Anxiety- Primary Anxiety state, unspecified 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) Primary insomnia Persistent disorder of initiating or maintaining sleep Moderate episode of recurrent major depressive disorder (CMS/HCC) Severe recurrent major depression without psychotic features (HCC) (CMS/HCC) Major depressive disorder, recurrent episode, severe, without mention of psychotic behavior Severe episode of recurrent major depressive disorder, without psychotic features (HCC) (CMS/HCC) documented in this encounter [facility]* Diagnosis Acute non-recurrent frontal sinusitis- Primary 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 Chronic obstructive pulmonary disease, unspecified COPD type (HCC) Small cell lung cancer in adult (HCC) History of primary malignant neoplasm of bronchus Shortness of breath Routine general medical examination at health care facility Routine general medical examination at a health care facility documented in this encounter [facility] Author Tez Irene [facility] April 10, 2022 3:12pm Note Date/Time April 10, 2022 3:12pm [facility] [address] [place] [address] Hospitalist H&P Signed Patient: Kirill Echols MR#: [id number] : 1965 Acct:[id number] Age/Sex: 56 / M Adm Date: 2 Loc: Room: [address] [place] [address] Type: ADM INOo Attending Dr: Tez Irene [...] % (Auto) 14.2 % (.) 04/10/22 10:20 [place] % (Auto) 9.9 % (.) 04/10/22 10:20 Eos % (Auto) 1.5 % (.) 04/10/22 10:20 Baso % (Auto) 1.0 % (.) 04/10/22 10:20 Neut # (Auto) 4.5 x10E3/uL (1.8-7.7) 04/10/22 10:20 Lymph # (Auto) 0.9 x10E3/uL (1.00-4.8) L 04/10/22 10:20 [place] # (Auto) 0.6 x10E3/uL (0.0-0.8) 04/10/22 10:20 [...] 10:20 Documented By: Tez Irene MD 04/10/22 1379 Signed By: <Electronically signed by Tez Irene MD> 04/10/22 1512 [facility] Work Phone: Hisnwmv general Narrative - Reported* Type Description Date Medical History COPD Medical History anxiety Medical History HTN Medical History Lung CA Surgical History Vasectomy Surgical History Right wrist surgery 2006 Surgical History Hernia repair Hospitalization History Related to [place] Other history general Narrative - Reported* Type Description Date Medical History COPD Medical History anxiety Medical History HTN Medical History Lung CA, small cell remission Surgical History Vasectomy Surgical History Right wrist surgery 2006 Surgical History Hernia repair Hospitalization History Related to [place] Other Hospital Discharge instructionsAmbulatory Orders* Initiate Home Health Time Frame: 1 Day, Location: Determined By Patient [facility] Work Phone: Hospital Discharge instructionsAmbulatory Orders* Initiate Home Health Time Frame: 1 Day, Location: Determined By Patient * Oncology Histology Time Frame: 10/03/22, Location: Determined By Patient * Oncology Histology Time Frame: 10/17/22, Location: Determined By Patient * Oncology Histology Time Frame: 10/10/22, Location: Determined By Patient [facility] Work Phone: InstructionsNot on filedocumented in this encounter [facility] Estela Var[facility] February 27, 2022 2:56pm Note Date/Time February 27, 2022 2 :51pm [facility] [place] [address] Hem/Onc Follow Up Note - OP Signed Patient: Kirill Echols MR#: [id number] : 1965 Acct:[id number] Age/Sex: 56 / M Type: REG RCR [...] for review. No concerns voiced. HPI: 54-year-old -[place] gentleman history of smoking 40 pack years [...] overwhelming for recurrence. He lives alone in [place]. His children live in [place]. His left him 8 months ago and [...] and urinary tract. Otherwise, there is an Rmoirf-z-Rijr on the left. The lungs demonstrate emphysematous [...] He is considering moving back down to [facility] he is from. 02/27/22 he didnt [...] for coordination of care (as documented) and vnkc-ny-qyln counseling of patient and/or family. [facility] - Medical History Medical History: Medical History [...] 09/14/21 14:56 KB (Rec: 09/14/21 14:59 KB [id number]) Distress Screening Distress score of 4 or more discussed Yes with patient? Distress screening follow up: Spoke with patient via phone. Patient is doing ok at this time. Recently had a heart cath which was negative. He is happpy that his scans are good. Dr. Perez is working on getting him into [facility]. - Lab Results Diagram of Most [...] by Estela Varma II, DO> 02/27/22 1456 [facility] Work Phone: Progress note Author Estela Varma [facility] April 14, 2022 12:02pm Note Date/Time April 14, 2022 1 1:50[facility] [place] [facility] [place] [address] Hem/Onc Follow Up Note - OP Signed Patient: Kirill Echols MR#: [id number] : 1965 Acct:[id number] Age/Sex: 56 / M Type: REG RCR [...] concerns voiced at this time. HPI: 54-year-old -[place] gentleman history of smoking 40 pack years [...] overwhelming for recurrence. He lives alone in [place]. His children live in [place]. His left him 8 months ago and [...] and urinary tract. Otherwise, there is an Xnfqjk-d-Qvan on the left. The lungs demonstrate emphysematous [...] He is considering moving back down to [facility] where he is from. 02/27/22 he didnt [...] for coordination of care (as documented) and kgxx-mr-ocqs counseling of patient and/or family. [facility] - Medical History Medical History: Medical History [...] 03/01/22 15:44 KB (Rec: 03/01/22 15:45 KB [id number]) Distress Screening Distress score of 4 or [...] % (Auto) 71.4, Lymph % (Auto) 16.2, [place] % (Auto) 8.6, Eos % (Auto) 2.9, Baso % (Auto) 0.9, Neut # (Auto) 4.5, Lymph # (Auto) 1.0, [place] # (Auto) 0.5, Eos# (Auto) 0.2, Baso [...] by Estela Varma II, DO> 04/14/22 1202 [facility] Work Phone: Progress note Author Dixie Olivia [facility] June 22, 2022 2:24pm Note Date/Time June 22, 2022 2 :16pm [facility] [place] [address] Hem/Onc Follow Up Note - OP Signed Patient: Kirill Echols MR#: [id number] : 1965 Acct:[id number] Age/Sex: 57 / M Type: REG RCR Copies to: MD Rylan Vega MD~ Subjective Date/Time of Service: Date of Service: 06/22/2022 Time of Service: 14:09 Chief Complaint: Patient is here for a 2 month follow up with, had chest tube placed 06/16/2022. No concerns voiced at this time. HPI: 54-year-old -[place] gentleman history of smoking 40 pack years [...] overwhelming for recurrence. He lives alone in [place]. His children live in [place]. His left him 8 months ago and [...] and urinary tract. Otherwise, there is an Hbgxmv-e-Lqka on the left. The lungs demonstrate emphysematous [...] He is considering moving back down to [facility] where he is from. 02/27/22 he didnt [...] diaphoresis. No orthostasis or dizziness or palpitations. [facility] - Medical History Medical History: Medical History [...] 03/01/22 15:44 KB (Rec: 03/01/22 15:45 KB [id number]) Distress Screening Distress score of 4 or [...] for coordination of care (as documented) and twjt-pl-npfx counseling of patient and/or family. Dictated By: Dixie Olivia APRN DD/ 1409 Signed By: <Electronically signed by ERINN Olivia> 06/22/22 1424 [facility] Work Phone: Progress note Author Estela Varma [facility] September 19, 2022 10:02am Note Date/Time September 19, 2022 9:50am [facility] [place] [address] Hem/Onc Follow Up Note - OP Signed Patient: Kirill Echols MR#: [id number] : 1965 Acct:[id number] Age/Sex: 57 / M Type: REG RCR [...] Weight loss Follow Up Instructions: f/u wth [employer] in 6 weeks, cbc, cmp b12, folate, [...] concerns voiced at this time. HPI: 54-year-old -[place] gentleman history of smoking 40 pack years [...] overwhelming for recurrence. He lives alone in [place]. His children live in [place]. His left him 8 months ago and [...] and urinary tract. Otherwise, there is an Dssfir-n-Dsaq on the left. The lungs demonstrate emphysematous [...] add on appointment after ER visit at [facility] on August 29, 2022 He went [...] for coordination of care (as documented) and ddau-pr-nllg counseling of patient and/or family. [facility] - Medical History Medical History: Medical History [...] 03/01/22 15:44 KB (Rec: 03/01/22 15:45 KB [id number]) Distress Screening Distress score of 4 or [...] by Estela Varma II DO> 09/19/22 1002 [facility] Work Phone: Progress note Author Estela Varma [facility] December 25, 2022 11:43am Note Date/Time December 25, 2022 11 :39am [facility] [place] [address] Hem/Onc Follow Up Note - OP Signed Patient: Kirill Echols MR#: [id number] : 1965 Acct:[id number] Age/Sex: 57 / M Type: REG RCR [...] today. No new concerns voiced. HPI: 54-year-old -[place] gentleman history of smoking 40 pack years [...] overwhelming for recurrence. He lives alone in [place]. His children live in [place]. His left him 8 months ago and [...] and urinary tract. Otherwise, there is an Qwftne-a-Swff on the left. The lungs demonstrate emphysematous [...] add on appointment after ER visit at [facility] on August 29, 2022 He went [...] for coordination of care (as documented) and upog-qh-wunb counseling of patient and/or family. [facility] - Medical History Medical History: Medical History [...] 03/01/22 15:44 KB (Rec: 03/01/22 15:45 KB [id number]) Distress Screening Distress score of 4 or [...] % (Auto) 70.2, Lymph % (Auto) 15.7, [place] % (Auto) 7.8, Eos % (Auto) 5.0, Baso % (Auto) 1.3, Nucleat RBC Rel Count 0.0, Neut # (Auto) 4.2, Lymph # (Auto) 0.9 L, [place] # (Auto) 0.5, Eos # (Auto) 0.3, [...] by Estela Varma II, DO> 12/25/22 1143 [facility] Work Phone: Progress note Author Estela Varma [facility] Note Date/Time July 14, 2024 2:[address] [facility] [place] [address] Cancer Center Note Signed Patient: Kirill Echols MR#: [id number] : 1965 Acct:[id number] Age/Sex: 59 / M Type: REG AMB Date of Service: 07/14/24 Copies to: Rylan Andrea MD~ Assessment & Plan A/P Orders: Orders Carcinoembryonic Antigen 06/25/24 C34.90 - Malignant neoplasm of unspecified part of unspecified bronchus or lung Patient Instructions: f/u in [address] c/a/p with contrast prior. cbc, cmp, cea prior to f/u. CHEMO PLAN Treatment Plan Atezolizumab Q21D [Holding Aug 16, 2020] Clinical Indication Metastatic Cycle Number Last Admin 18 of 18 Cycle Day Next Admin -128 No Active Chemotherapy History of Present Illness HPI ASSESSMENT/PLAN Limited stage small cell lung cancer, status post concurrent chemoradiation withcarboplatin/etoposide, CR after 6 cycles of carboplatin, etoposide and atezolizumab. He did not complete a year of maintenance atezolizumab, stopped for patient preference LAST DOSE JUN 2020. In late 2021 he had recurrent pleural effusions which required a Pleurx catheter. Fluid was exudative suggestive of malignancy but cytologies were negative. Subsequent imaging did not show any solid tissue concerning for malignancy. Ultimately had his catheter removed in October 2022. HAS NOT BEEN TREATED SYSTEMICALLY Since JUN 2020. PET/CT 06/25/23 with no evidence of cancer. ct in jun 2024 LUX. We will continue to monitor without treatment. He is doing extremely well considering. B12 deficiency. He received injections throughout July 2022 and he appreciated how these made him feel. Despite this we decided to switch him to oral supplementation in June 2023. he will change to b12 oral tablets. HISTORY OF PRESENT ILLNESS 59-year-old -[place] gentleman history of smoking 40 pack years [...] overwhelming for recurrence. He lives alone in [place]. His children live in [place]. His left him 8 months ago and [...] and urinary tract. Otherwise, there is an Uwostg-u-Egpu on the left. The lungs demonstrate emphysematous [...] suspicious for malignancy. ct c/a/p from 01/03/22 notes persistent and increasing right-sided pleural effusion. Stable 9 mm lesion in the left lobe of the liver. ct c/a/p with contrast 04/10/22 with again enlarging pleural effusion, no advancing cancer. In April R sided effusion, had hospitalization. He has thoracentesis aspirated from the R chest. cytology negative. At this point he had been off of all systemic therapy since June 2020, repeated cytologies were negative, underwent placement of right lung pleur-X catheter for recurrent pleural effusion with Dr. Duval on 04/15/2023 CT scan of the chest, abdomen/pelvis on 04/10/2022 showed pleural effusion with no obvious recurrence or interval mass. August 2022, CT chest done that showed mild right pleural effusion; no enlarging lymph nodes or osseous lesions pet/ct from 09/15/22 showed essentially no areas of FDG avidity. Persistent right- sided Pleurx catheter with residual pleural thickening without FDG avidity. No obvious evidence of malignancy on this image. Around this time, continues to get twice weekly drainage of his pleuryx but the volume was greatly lessening. He is doing well overall. He does note getting winded a bit on exertion. he feels he is deconditioned. PET/CT 12/22/22 with no evidence cancer, mild emphysema and pancreatitis. 06/29/23 pet/ct from 06/25/23 IMPRESSION: NO HYPERMETABOLIC REGION OF UPTAKE SEEN TO SUGGEST FDG AVID MALIGNANCY. he is stressed as he is being asked to leave his current rental of 9 years. Hisanxiety has been bad as a result of this stress. He doesn't have a lot of support. His family is in [place] and [place]. Physically he is doing well overall. he does note he is winded easily. He hasnthad any effusions tapped in a while. He had three of them last year with negative cytology each time. He has low appetite. no evidence of effusion on his pet/ct, maybe trace on the R side. 07/14/[address] Ruth pace with some internal hemorrhoids, recommend repeeat in 5 years. egd noted erythema and small erosions. moderate gastritis. ct c/a/p 07/11/24 normal. recently had a cyst removed over the angle of his jaw on the right side by dermatology. told not a neoplasm. eating well but not gaining weight. although the chart shows some gain. PHYSICAL EXAMINATION ECOG PS:0 General : patient is alert and oriented to person place and time, no acute distress. Neck: no JVD or thyromegaly. Lymph: no cervical, supraclavicular, axillary adenopathy. Heart: regular rate and rhythm no murmurs rubs or gallops. Abdomen: soft, nontender,, nondistended, no hepatosplenomegaly. Lungs: clear to auscultation bilaterally. No wheezes, rales, rhonchi. Extremities: no clubbing cyanosis Intake Vitals/Pain Assessment 07/14/24 13:34 Height 6 ft Weight 68.492 kg BMI 20.5 Body Fat % 32.83 BP 148/87 H Blood Pressure Location Lt brachial Position Sitting Temp 97.9 F Temp Source Temporal Pulse 93 Pulse Source NIBP Respiration 16 Pulse Oximetry (%) 99 Oxygen Delivery Method room air Are you having pain? No Intake Visit Reasons: follow up visit Accompanied by: Self Allergies chlordiazepoxide (From Librium) Allergy (Unknown, Verified 02/08/24 11:34) Edema lisinopril Allergy (Unknown, Verified 02/08/24 11:34) Swelling of Lip/Tongue/Throat sertraline (From Zoloft) Allergy (Verified 02/08/24 11:34) Swelling of Lip/Tongue/Throat Home Medications - Last Reconciled 07/14/24 by COLLEEN Bernal aspirin 81 mg PO DAILY cyanocobalamin (vitamin B-12) 1,000 mcg PO DAILY beaixktszac-aycczjhmk-oauvrhjy 100-62.5-25 mcg (Trelegy Ellipta) 1 inh inhalation DAILY levothyroxine 100 mcg PO DAILY melatonin 3 mg PO QHS pantoprazole 40 mg PO DAILY polyethylene glycol 3350 (Miralax) 17 grams PO DAILY PRN quetiapine 200 mg PO QHS Gastrointestinal Is the patient taking opioids for pain control?: No Bowel Pattern: Regular Falls Fall Precaution Measures Taken: Patient in chair Nurse's Note: Patient is here today for a follow up visit and go over labs and CT scans. [facility] Medical History Medical History (Updated 02/08/24 @ 11:40 by Nenita Babin RN) Recurrent right pleural effusion Former smoker H/O peptic ulcer TOS (thoracic outlet syndrome) Insomnia Pancreatitis Anxiety Depression Anemia due to chemotherapy Urinary retention with incomplete bladder emptying Chronic hyponatremia Pneumothorax Port-A-Cath in place left chest wall Small cell lung cancer s/p chemo & radiation. 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 Emphysema lung COPD (chronic obstructive pulmonary disease) Hypertension Adverse reaction to LUIS inhibitor drug Surgical History Surgical History Hx of hernia repair H/O wrist surgery Right side, 2005 H/O vasectomy Family History Family History (Updated 02/08/24 @ 11:40 by Nenita Babin RN) Mother Colon cancer Diabetes mellitus, type 2 Diabetes Cancer Father Prostate cancer Cardiovascular disease Hypertension Cancer Brother Diabetes mellitus, type 2 Hypertension Sister Hypertension Brother Diabetes Legacy FamHx Relation: Brother(s) Social History Social History (Updated 07/14/24 @ 13:37 by COLLEEN Bernal) Smoking status: Former smoker Within the past year, how often did you have a drink containing alcohol: monthly or less Within the past year, how often did you have six or more drinks on one occasion: weekly In the past 12 months, have you used illegal drugs or prescription drugs for non-medical reasons?: No Results - Cancer Ctr (Med Onc) LAB RESULTS Corrected WBC 9.5 X10E3/uL (4.1-10.5) 07/11/24 12:50 5 Hgb 13.8 g/dL (13.0-17.0) 07/11/24 12:50 07/11/24 Hct 41.1 % (38.8-50.0) 07/11/24 12:50 07/11/24 MCV 94.7 fl (83.5-101) 07/11/24 12:50 07/11/24 RDW 16.2 % (12.0-14.8) H 07/11/24 12:50 07/11/24 Plt Count 180 x10E3/uL (150-450) 07/11/24 12:50 07/11/24 Sodium 137 mmol/L (136-145) 07/11/24 12:50 07/11/24 Potassium 3.6 mmol/L (3.5-5.1) 07/11/24 12:50 07/11/24 BUN 17 mg/dL (7-25) 07/11/24 12:50 07/11/24 Creatinine 1.52 mg/dL (0.70-1.30) H 07/11/24 12:50 Glucose 73 mg/dL (70-100) 07/11/24 12:50 07/11/24 Est GFR (CKD-EPI) 52.458 mL/Min 07/11/24 12:50 07/11/24 Calcium 8.9 mg/dL (8.6-10.3) 07/11/24 12:50 07/11/24 Total Bilirubin 0.4 mg/dl (0.3-1.0) 07/11/24 12:50 07/11/24 AST 12 U/L (13-39) L 07/11/24 12:50 07/11/24 ALT 9 U/L (7-52) 07/11/24 12:50 07/11/24 Alkaline Phosphatase 113 U/L (34-104) H 07/11/24 12:50 5 Total Protein 7.1 gm/dL (6.4-8.9) 07/11/24 12:50 07/11/24 Albumin 4.0 gm/dL (3.5-5.7) 07/11/24 12:50 07/11/24 Dictated By: Estela Varma II, DO DD/ 1334 Signed By: <Electronically signed by Estela Varma II, DO> 07/14/24 1404 [facility] Work Phone: Reason for referral (narrative)* Consultation (Routine) - Authorized Specialty Diagnoses / Procedures Referred By Contjose t Referred To Contact Dermatology Diagnoses Mass of chin Procedures CT OFFICE/OUTPATIENT NEW HIGH MDM 60 MINUTES Marilu Bonner NP [address] [place] [address] Referral ID Status Reason Start Date Expiration Date Visits Requested Visits Authorized [id number] Authorized Specialty Services Required 01/18/2024 07/16/2024 1 [...] bowel obstruction Weight loss Constipation Chief Complaint Admit Date NEEDS CT & LABS! Follow Up July 14 1:28pm Reason for Visit Admit Date Cancer-related pain July 14, 2024 1:28 pm Chronic hyponatremia July 14, 2024 1:2 8pm Joint pain July 14, 2024 1:28 pm Shortness of breath July 14, 2024 1:28 pm Weight loss July 14, 2024 1:28 pm Small cell lung cancer July 14, 2024 1 :28pm Anxiety July 14, 2024 1:28 pm Chest pain July 14, 2024 1:28 pm Diarrhea July 14, 2024 1:28 pm Edema July 14, 2024 1:28 pm Neck pain July 14, 2024 1:28 pm Anemia due to chemotherapy July 14 1:28pm Additional Source Comments (unrecognized sect ion and content) No Status Records FoundNo Status Records FoundNo Status Records FoundNo Status Records FoundNo Status Records FoundNo Status Records FoundNo Status Records FoundNo Status Records FoundNo Status Records FoundNo Status Records FoundNo Status Records Found INFORMATION SOURCE (unrecogn ized section and content) DATE CREATED AUTHOR 05/14/2018 [facility] DATE CREATED AUTHOR AUTHOR'S ORGANIZ ATION 03/05/2020 [facility] DATE CREATED AUTHOR AUTHOR'S ORGANIZ ATION 08/07/[address] [facility] DATE CREATED AUTHOR AUTHOR'S ORGANIZ ATION 08/20/2020 [facility] DATE CREATED AUTHOR AUTHOR'S ORGANIZ ATION 12/02/2021 [facility] DATE CREATED AUTHOR AUTHOR'S ORGANIZ ATION 03/04/2022 [facility] DATE CREATED AUTHOR AUTHOR'S ORGANIZ ATION 10/23/2022 [facility] DATE CREATED AUTHOR AUTHOR'S ORGANIZ ATION 09/14/2023 [facility] DATE CREATED AUTHOR AUTHOR'S ORGANIZ ATION 08/16/2024 [facility] DATE CREATED AUTHOR AUTHOR'S ORGANIZ ATION 12/25/2024 [facility] DATE CREATED AUTHOR AUTHOR'S ORGANIZ ATION 01/14/2025 [facility] d[facility] Specialists EPIC REASON FOR VISIT (unrecogniz ed section and content) Reason Comments Shortness of Breath Consultation Small cell lung cancer Consultation Pleural effusion Consultation Specialty Diagnoses / Procedures Referred By Contac t Referred To Contact Pulmonary Disease / Pulmonology Diagnoses Small pleural effusion Small cell lung cancer in adult (CMS/HCC) Shortness of breath Procedures CT OFFICE/OUTPATIENT NEW HIGH MDM 60 MINUTES Marilu Bonner NP [address] [place] [address] Ophelia James DO [address] [place] [address] Referral ID Status Reason Start Date Expiration Date V isits Requested Visits Authorized [id number] Closed Specialty Services Required 10/11/2023 04/08/2024 1 1 Reason Comments Suspicious Skin Lesion Specialty Diagnoses / Procedures Referred By Contac t Referred To Contact Dermatology Diagnoses Mass of chin Procedures CT OFFICE/OUTPATIENT NEW HIGH MDM 60 MINUTES Marilu Bonner NP [address] [place] [address] Phone: tel: fax: Nikos Yu MD [address] [place] [address] Phone: tel: fax: Referral ID Status Reason Start Date Expiration Date V isits Requested Visits Authorized [id number] Closed Specialty Services Required 01/18/2024 07/16/2024 1 1 Reason Comments Excision Goals (unrecognized section and content) Goals may be documented in a n alternate section Care Teams (unrecognized sec tion and content) Team Status: Active Member Role Status Meir Andrea MD Primary Care Provider Active Team Status: Inactive Member Role Status Meir Andrea MD Primary Care Provider Active S tart: July 14, 2024 End: July 14, 2024 Estela Varma II, DO Attending Provider Active Start: July 14, 2024 End: July 14, 2024 Estela Varma II, DO Attending Provider Active Start: July 14, 2024 Team Status: Active Member Role Status [...] Andrea MD Primary Care Provider Active Nilsa Solomon NP-Rigo Attending Provider Active Team Status: Active [...] Active Humberto Molina PA-C Emergency Provider Active Ppa Teacher Relationship Specialty Start Date End Date Rylan Andrea MD [address] [place] [address] PCP - General Family Medicine 10/16/22 Marilu Bonner, STAIN MAKER [address] [place] [address] Nurse Practitioner Family Medicine 04/03/23 Nilsa Solomon STAIN MAKER [address] [place] [phone] Nurse Practitioner Pulmonary Disease 04/03/23 Morenita Gomes, RN Registered Nurse Family Medicine 06/18/23 Sanjuana aVn LSW Outdoor Landscape Architect Family Medicine 06/18/23 Ppa Teacher Relationship Specialty Start Date End Date Rylan Andrea MD [address] [place] [address] PCP - General Family Medicine 10/16/22 Marilu Bonner, STAIN MAKER [address] [place] [address] Nurse Practitioner Family Medicine 04/03/23 Nilsa Solomon STAIN MAKER [address] [place] [address] Nurse Practitioner Pulmonary Disease 04/03/23 Morenita Gomes, RN Registered Nurse Family Medicine 06/18/23 Sanjuana Van LSW Outdoor Landscape Architect Family Medicine 06/18/23 Team Status: Active Member [...] Other Provider Active Start: February 18, 2024 Ppa Teacher Relationship Specialty Start Date End Date Rylan Andrea MD [address] [place] [address] PCP - General Family Medicine 10/16/22 Rylan Andrea MD [address] [place] [address] PCP - [facility] 05/14/23 05/13/24 Marilu Bonner, ELLE [address] [place] [address] Nurse Practitioner Family Medicine 04/03/23 Nilsa Solomon NP [address] [place] [place] [address] Nurse Practitioner Pulmonary Disease 04/03/23 Sanjuana Van LSW Outdoor Landscape Architect Family Medicine 06/18/23 Cindy Yeager OD [address] [place], [place] [id number] Referring Physician Optometry 10/31/23 Ophelia James DO [address] [address] Pulmonary Disease 01/10/24 Ppa Teacher Relationship Specialty Start Date End Date Rylan Andrea MD [address] [place] [address] PCP - General Family Medicine 10/16/22 Rylan Andrea MD [address] [place] [address] PCP - [facility] 05/14/23 05/13/24 Marilu Bonnre, ELLE [address] [place] [address] Nurse Practitioner Family Medicine 04/03/23 Nilsa Solomon NP [address] [place] [address] Nurse Practitioner Pulmonary Disease 04/03/23 Sanjuana Van LSW Outdoor Landscape Architect Family Medicine 06/18/23 Cindy Yeager OD [address] [place], [place] [phone] Referring Physician Optometry 10/31/23 Ophelia James DO [address] [place] [address] Pulmonary Disease 01/10/24 Ppa Teacher Relationship Specialty Start Date End Date Rylan Andrea MD [address] [place] [address] PCP - General Family Medicine 10/16/22 Rylan Andrea MD [address] [place] [address] PCP - [facility] 05/14/23 05/13/24 Marilu Bonner, ELLE [address] [place] [address] Nurse Practitioner Family Medicine 04/03/23 Nilsa Solomon NP [address] [place] [phone] Nurse Practitioner Pulmonary Disease 04/03/23 Morenita Gomes, RN Registered Nurse Family Medicine 06/18/23 12/14/23 Sanjuana Van LSW Outdoor Landscape Architect Family Medicine 06/18/23 Cindy Yeager OD [address] [place] [place] [address] Referring Physician Optometry 10/31/23 Ophelia James DO [address] [place] [address] Pulmonary Disease 01/10/24 Ppa Teacher Relationship Specialty Start Date End Date Rylan Andrea MD [address] [place] [address] PCP - General Family Medicine 10/16/22 Marilu Bonner NP [address] [place] [address] Nurse Practitioner Family Medicine 04/03/23 Nilsa Solomon NP [address] [place] [address] Nurse Practitioner Pulmonary Disease 04/03/23 Sanjuana Van LSW Outdoor Landscape Architect Family Medicine 06/18/23 Cindy العلي MD [address] [place] [place] [address] Referring Physician Optometry 10/31/23 Ppa Teacher Relationship Specialty Start Date End Date Rylan Andrea MD [address] [place] [address] PCP - General Family Medicine 10/16/22 Marilu Bonner NP [address] [place] [address] Nurse Practitioner Family Medicine 04/03/23 Nilsa Solomon NP [address] [place] [address] Nurse Practitioner Pulmonary Disease 04/03/23 Sanjuana Van LSW Outdoor Landscape Architect Family Medicine 06/18/23 Cindy العلي MD [address] [place] [address] Referring Physician Optometry 10/31/23 Ophelia James DO [address] [place] [address] Pulmonary Disease 01/10/24 Ppa Teacher Relationship Specialty Start Date End Date yRlan Andrea MD [address] [place] [address] PCP - General Family Medicine 10/16/22 Marilu Bonner NP [address] [place] [address] Nurse Practitioner Family Medicine 04/03/23 Nilsa Solomon, ELLE [address] [place] [address] Nurse Practitioner Pulmonary Disease 04/03/23 Sanjuana Van LSW Outdoor Landscape Architect Family Medicine 06/18/23 Cindy العلي MD [address] [place] [place] [address] Referring Physician Optometry 10/31/23 Ophelia James DO [address] [place] [address] Pulmonary Disease 01/10/24 Ppa Teacher Relationship Specialty Start Date End Date Rylan Andrea MD [address] [place] [id number] PCP - General Family Medicine 10/16/22 Marilu Bonner, ELLE [address] [facility] Nurse Practitioner Family Medicine 04/03/23 Nilsa Solomon NP [address] [place] [phone] Nurse Practitioner Pulmonary Disease 04/03/23 Sanjuana Van [facility] Outdoor Landscape Architect Family Medicine 06/18/23 Cindy العلي MD [address] [place], [place] [phone] Referring Physician Optometry 10/31/23 Ophelia James DO [address] [place] [address] Pulmonary Disease 01/10/24 Ppa Teacher Relationship Specialty Start Date End Date Rylan Andrea MD [address] [place] [id number] PCP - General Family Medicine 10/16/22 Marilu Bonner, ELLE [address] [place] [address] Nurse Practitioner Family Medicine 04/03/23 Nilsa Solomon NP [address] [place] [address] Nurse Practitioner Pulmonary Disease 04/03/23 Sanjuana Van LSW Outdoor Landscape Architect Family Medicine 06/18/23 Cindy العلي MD [address] [place] [place] [address] Referring Physician Optometry 10/31/23 Ophelia James DO [address] [place] [address] Pulmonary Disease 01/10/24 Ppa Teacher Relationship Specialty Start Date End Date Rylan Andrea MD [address] [place] [address] PCP - General Family Medicine 10/16/22 Marilu Bonner NP [address] [place] [address] Nurse Practitioner Family Medicine 04/03/23 Nilsa Solomon NP [address] [place] [address] Nurse Practitioner Pulmonary Disease 04/03/23 Sanjuana Van LSW Outdoor Landscape Architect Family Medicine 06/18/23 Cindy Yeager OD [address] [place] [place] [address] Referring Physician Optometry 10/31/23 Ophelia James DO [address] [place] [address] Pulmonary Disease 01/10/24 Ppa Teacher Relationship Specialty Start Date End Date Rylan Andrea MD [address] [place] [address] PCP - General Family Medicine 10/16/22 Marilu Bonner NP [address] [place] [address] Nurse Practitioner Family Medicine 04/03/23 Nilsa Solomon NP [address] [place] [address] Nurse Practitioner Pulmonary Disease 04/03/23 Sanjuana Van LSW Outdoor Landscape Architect Family Medicine 06/18/23 Cindy Yeager OD [address] [place], [place] [phone] Referring Physician Optometry 10/31/23 Ophelia James DO [address] [place] [address] Pulmonary Disease 01/10/24 Ppa Teacher Relationship Specialty Start Date End Date Rylan Andrea MD [address] [place] [address] PCP - General Family Medicine 10/16/22 Marilu Bonner NP [address] [place] [address] Nurse Practitioner Family Medicine 04/03/23 Nilsa Solomon NP [address] [place] [address] Nurse Practitioner Pulmonary Disease 04/03/23 Sanjuana Van LSW Outdoor Landscape Architect Family Medicine 06/18/23 Cindy Yeager, OD [address] [place] [address] Referring Physician Optometry 10/31/23 Ophelia James DO [address] [place] [address] Pulmonary Disease 01/10/24 Ppa Teacher Relationship Specialty Start Date End Date Rylan Andrea MD [address] [place] [address] PCP - General Family Medicine 10/16/22 Marilu Bonner NP [address] [place] [address] Nurse Practitioner Family Medicine 04/03/23 Nilsa Solomon NP [address] [place] [address] Nurse Practitioner Pulmonary Disease 04/03/23 Sanjuana Van LSW Outdoor Landscape Architect Family Medicine 06/18/23 Shobha Cindy, OD [address] [place] [address] Referring Physician Optometry 10/31/23 Ophelia James DO [address] [place] [address] Pulmonary Disease 01/10/24 Ppa Teacher Relationship Specialty Start Date End Date Rylan Andrea MD [address] [place] [address] PCP - General Family Medicine 10/16/22 Marilu Bonner, STAIN MAKER [address] [place] [address] Nurse Practitioner Family Medicine 04/03/23 Nilsa Solomon, STAIN MAKER [address] [place] [address] Nurse Practitioner Pulmonary Disease 04/03/23 Sanjuana Van LSW Outdoor Landscape Architect Family Medicine 06/18/23 Cindy Yeager OD [address] [place] [address] Referring Physician Optometry 10/31/23 Ophelia James DO [address] [phone] Pulmonary Disease 01/10/24 Ppa Teacher Relationship Specialty Start Date End Date Rylan Andrea MD [address] [place] [id number] PCP - General 11/09/17 Ppa Teacher Relationship Specialty Start Date End Date Rylan Andrea MD [address] [place] [id number] PCP - General Family Medicine 10/16/22 Marilu Bonner, ELLE [address] [place] [address] Nurse Practitioner Family Medicine 04/03/23 Nilsa Solomon, STAIN MAKER [address] [place] [address] Nurse Practitioner Pulmonary Disease 04/03/23 Sanjuana Van LSW Outdoor Landscape Architect Family Medicine 06/18/23 Cindy Yeager, OD [address] [place] [address] Referring Physician Optometry 10/31/23 Ophelia James DO [address] [place] [address] Pulmonary Disease 01/10/24 Ppa Teacher Relationship Specialty Start Date End Date Rylan Andrea MD [address] [place] [address] PCP - General Family Medicine 10/16/22 Marilu Bonner NP [address] [place] [address] Nurse Practitioner Family Medicine 04/03/23 Nilsa Solomon NP [address] [place] [address] Nurse Practitioner Pulmonary Disease 04/03/23 Sanjuana Van LSW Outdoor Landscape Architect Family Medicine 06/18/23 Cindy Yeager, OD [address] [place] [address] Referring Physician Optometry 10/31/23 Ophelia James DO [address] [place] [address] Pulmonary Disease 01/10/24 Ppa Teacher Relationship Specialty Start Date End Date Rylan Andrea MD [address] [place] [address] PCP - General Family Medicine 10/16/22 Nilsa Solomon, ELLE [address] [place] [address] Nurse Practitioner Pulmonary Disease 04/03/23 Sanjuana Van LSW Outdoor Landscape Architect Family Medicine 06/18/23 Cindy Yeager OD [address] [place] [address] Referring Physician Optometry 10/31/23 Ophelia James DO [address] [place] [address] Pulmonary Disease 01/10/24 Ppa Teacher Relationship Specialty Start Date End Date Rylan Andrea MD [address] [place] [address] PCP - General Family Medicine 10/16/22 Nilsa Solomon, ELLE [address] [place] [address] Nurse Practitioner Pulmonary Disease 04/03/23 Sanjuana [place] [address] [place] [address] Outdoor Landscape Architect Family Medicine 06/18/23 Cindy Yeager OD [address] [place] [address] Referring Physician Optometry 10/31/23 Ophelia James DO [address] [place] [address] Pulmonary Disease 01/10/24 Ppa Teacher Relationship Specialty Start Date End Date Rylan Andrea MD [address] [place] [address] PCP - General Family Medicine 10/16/22 Nilsa Solomon NP [address] [place] [address] Nurse Practitioner Pulmonary Disease 04/03/23 Sanjuana Van LSW [address] [place] [address] Outdoor Landscape Architect Family Medicine 06/18/23 Cindy Yeager OD [address] [place] [address] Referring Physician Optometry 10/31/23 Ophelia James DO [address] [place] [address] Pulmonary Disease 01/10/24 Ppa Teacher Relationship Specialty Start Date End Date Rylan Andrea MD [address] [place] [address] PCP - General Family Medicine 10/16/22 Nilsa Solomon, ELLE [address] [place] [address] Nurse Practitioner Pulmonary Disease 04/03/23 Sanjuana Van LSW [address] [place] [address] Outdoor Landscape Architect Family Medicine 06/18/23 Cindy Yeager OD [address] [place] [address] Referring Physician Optometry 10/31/23 Ophelia James DO [address] [place] [address] Pulmonary Disease 01/10/24 FOR RECORDS PERTAINING TO [...] BE BASED ON THE PRIMARY CLINICAL RECORDS. [facility]. provides no warranty or guarantee of the accuracy or completeness of information in this document.
--- NOTE | 2025-01-24 14:48 | XR_ITS ---
[address] [address] Patient Name: TONI GERBER MRN: [id number] date: 1965 Sex: M Assigned Patient Location: ED.MAIN Current Patient Location: ER Accession/Order Number: [id number] Exam Date: 01/24/2025 15:25 Report Date: 01/24/2025 15:53 At the request of: JEVON FLORES MD Procedure: XR chest 1V Plain film chest Single view HISTORY: Acute chest pain COMPARISON: 01/07/2024 FINDINGS: SUPPORT DEVICES: None POSTSURGICAL CHANGES: Oqqudg-e-Razm unchanged HEART: Within normal limits PULMONARY VERONIKA: Within normal limits MEDIASTINUM: Unremarkable LUNGS AND PLEURA: No acute lung process, pleural effusion or pneumothorax identified. Hyperinflation. Minor interstitial changes BONY STRUCTURES: Intact ADDITIONAL FINDINGS None XR/XR chest 1V IMPRESSION: No acute process. Hyperinflation Impression dictated by: Franklin Gomes M.D. 01/24/2025 3:53 PM Dictation [facility] Electron[facility] authenticated by: [id number] Y Date: 01/24/2025 15:53
--- NOTE | 2025-01-24 14:48 | ECG_ITS ---
[facility] Test Date: 2025-01-24 Pat Name: TONI GERBER Department: Room: - Gender: Male [employer] Psychologist: : 1965 Requested By: [id number] Order Number: [id number] Reading MD: ALEKSEY SHI Measurements Intervals [place] Rate: 101 P: 69 AK: 208 QRS: 46 QRSD: 92 T: 71 QT: 354 QTc: 412 Interpretive Statements 1120 Sinus tachycardia 9140 abnormal rhythm ECG Compared to ECG 01/07/2024 08:37:22 Sinus rhythm no longer present Electronically Signed On 01-26-2025 16:44:52 EDT by ALEKSEY SHI
--- NOTE | 2025-01-24 15:10 | ED_ITS ---
HPI - Chest Pain General Chief Complaint: Chest Pain Stated Complaint: CHEST PAIN Time Seen by Provider: 01/24/25 14:45 Source: patient Mode of arrival: Wheelchair History of Present Illness HPI narrative: The patient is a 59 years old male with history of lung cancer in remission, sent to the ER with a chest pain mostly scapular although he mentioned that he feels that the pain is all over and whenever he is taking a deep breath, he is complaining that this pain going on for 7 days associated with no nausea no vomiting no other concerns he feels that the pain sometimes radiate all over, and he is worried about recurrence of his cancer The patient is tearful and emotional Patient was evaluated by Dr. Rodrigez with his primary care doctor few days ago and was supposed to get some x-rays done next week but he came here because the pain is severe No cough no fever the patient mentioned that sometimes he feel whenever he take a deep breath it hurts and for that reason he is short of breath Related Data Home Medications ?Medication ?Instructions ?Recorded ?Confirmed aspirin 81 mg tablet,delayed 81 mg PO QDAY 01/02/23 release cyanocobalamin (vitamin B-12) 1,000 mcg PO .QD 11/05/ 4 01/24/25 1,000 mcg tablet (Vitamin B-12) fluticasone 250 mcg-salmeterol 50 1 inh inhalation Q12 H 11/06/23 01/24/25 mcg/dose blistr powdr for inhalation melatonin 3 mg tablet 3 mg PO QPM PRN sleep 01/24/25 quetiapine 100 mg tablet 100 mg PO DAILY 11/26/23 levothyroxine 100 mcg tablet 100 mcg PO DAILY 12/13/23 01/24/25 Previous Rx's ?Medication ?Instructions ?Recorded diclofenac sodium 75 mg 75 mg PO BID PRN pain #20 ta bs 01/24/25 tablet,delayed release orphenadrine citrate 100 mg 100 mg PO BID PRN muscle s pasm #20 01/24/25 tablet,extended release tabs Allergies Allergy/AdvReac Type Severity Reaction Status Date / Time chlordiazepoxide (From Allergy facial Verified 01/24/25 14:51 Librium) swelling lisinopril Allergy Hypotension Verified 01/24/25 14:51 sertraline Allergy low energy Verified 01/24/25 14:51 Review of Systems ROS Status of ROS 10 or more systems reviewed and unremark able except as noted in history and below [facility] Medical History (Updated 01/24/25 @ 17:53 by Giuliana Lara MD) Chronic respiratory failure with hypoxia ?J96.11 - Chronic respiratory failure with hypoxia (ICD-10) Adult failure to thrive ?R62.7 - Adult failure to thrive (ICD-10) Acute hyponatremia ?E87.1 - Hypo-osmolality and hyponatremia (ICD-10) Acute exacerbation of chronic obstructive pulmonary disease (COPD) ?J44.1 - Chronic obstructive pulmonary disease with (acute) exacerbation (ICD-10) Costochondritis ?M94.0 - Chondrocostal junction syndrome [Tietze] (ICD-10) Hyponatremia ?E87.1 - Hypo-osmolality and hyponatremia (ICD-10) Partial small bowel obstruction ?K56.600 - Partial intestinal obstruction, unspecified as to cause (ICD-10) Insomnia ?G47.00 - Insomnia, unspecified (ICD-10) Hypothyroidism ?E03.9 - Hypothyroidism, unspecified (ICD-10) Lung cancer ?C34.90 - Malignant neoplasm of unspecified part of unspecified bronchus or lung (ICD-10) Hypertension ?I10 - Essential (primary) hypertension (ICD-10) Surgical History (Updated 01/16/24 @ 09:32 by Chaparrita Bang RN) History of cataract surgery ?Z98.49 - Cataract extraction status, unspecified eye (ICD-10) History of hand surgery ?Z98.890 - Other specified postprocedural states (ICD-10) History of colonoscopy ?Z98.890 - Other specified postprocedural states (ICD-10) H/O vasectomy ?Z98.52 - Vasectomy status (ICD-10) Family History Father Family history of cancer Family history of COPD (chronic obstructive pulmonary disease) Mother Family history of diabetes mellitus Family history of COPD (chronic obstructive pulmonary disease) Brother Family history of diabetes mellitus Sister Family history of diabetes mellitus Social History (Updated 01/16/24 @ 09:32 by Chaparrita Bang RN) Within the past year, how often did you have a drink containing alcohol: 4 or more times a week Within the past year, how many standard drinks containing alcohol did you have on a typical day: 1 or 2 Within the past year, how often did you have six or more drinks on one occasion: less than monthly Total score: 1 Score interpretation: A score of 4 or more indicates drinking is likely to affect patient's safety. Smoking status: Former smoker Non-prescribed substance use: cannabis (any form) Non-prescribed substance use details: gummies Previous occupational history: DISABILITY Highest level of school completed/degree received: some college, no degree Are you now , , , , never or living with a partner: In a typical week, how many times do you talk on the telephone with family, friends, or neighbors: never How often do you get together with friends or relatives: never Little interest or pleasure in doing things: not at all Feeling down, depressed, or hopeless: not at all Exam Narrative Exam Narrative: Nurses notes and vital signs reviewed and patient is not hypoxic. General: Well-appearing and in no apparent distress. Skin: Warm, dry, no pallor noted. No rash. Head: Normocephalic, atraumatic. Neck: Supple, non-tender. Cardiovascular: Regular Rate and Rhythm without murmur, gallop or rub. Respiratory: No accessory muscle use or respiratory distress. Lungs are clear to auscultation, no wheezing, rales or rhonchi Chest Wall: Significant tenderness upon palpation of the left scapular area Back: No midline thoracic or lumbar vertebral tenderness. No CVA tenderness Musculoskeletal: normal ROM, no calf or popliteal tenderness, no lower extremity edema/swelling GI: Abdomen is soft, non-distended. Normal bowel sounds. No masses appreciated. No tenderness to palpation. No rebound, guarding, or rigidity noted. Neurological: A&O x4. No cranial nerve dysfunction observed. Constitutional Vital Signs, click to edit/add: Last Vital Signs Temp 98.7 F 01/24/25 14:45 Pulse 90 01/24/25 16:42 Resp 23 H 01/24/25 16:42 BP 131/89 01/24/25 16:00 Pulse Ox 98 01/24/25 14:45 O2 Del Method Room Air 01/24/25 14:45 Course Vital Signs Vital signs: Vital Signs Temperature 98.7 F 01/24/25 14:45 Pulse Rate 104 H 01/24/25 14:45 Respiratory Rate 24 H 01/24/25 14:45 Blood Pressure 137/103 H 01/24/25 14:45 Pulse Oximetry 98 01/24/25 14:45 Oxygen Delivery Method Room Air 01/24/25 14:45 Temperature 98.7 F 01/24/25 14:45 Pulse Rate 90 01/24/25 16:42 Respiratory Rate 23 H 01/24/25 16:42 Blood Pressure 131/89 01/24/25 16:00 Pulse Oximetry 98 01/24/25 14:45 Oxygen Delivery Method Room Air 01/24/25 14:45 MDM - Chest Pain MDM Narrative Medical decision making narrative: The patient EKG in the ER showing sinus rhythm with a heart rate of [address] elevation or depression no acute changes compared to old EKG Chest x-ray showed no acute pathology The patient also was instructed about the importance of making sure that he will monitor his back in case of any new symptoms he will come back because shingles could cause him to have that pain as well CBC chemistry in the first troponin were negative for any significant pathology and the patient also had a D-dimer that was elevated that why CT angio was obtained CT angio of the chest showed no acute pathology except for emphysematous changes The patient right now is feeling better initially after Toradol Lab Data Labs: Lab Results 01/24/25 Range/Units 15:18 WBC 7.9 (4.0-11.0) 10^3/uL RBC 4.16 L (4.70-6.10) 10^6/uL Hgb 13.3 L (14.0-18.0) g/dL Hct 37.7 L (42.0-54.0) % MCV 90.6 (80.0-94.0) fL MCH 32.0 (25.9-34.0) pg MCHC 35.3 H (29.9-35.2) g/dL RDW 14.3 (11.0-15.0) % Plt Count 220 (150-450) 10^3/uL MPV 8.7 L (9.5-13.5) fL Neut % (Auto) 71.1 (43.0-75.0) % Lymph % (Auto) 15.8 L (20.5-60.0) % [place] % (Auto) 9.9 (1.7-12.0) % Eos % (Auto) 2.4 (0.9-7.0) % Baso % (Auto) 0.5 (0.2-2.0) % Neut # (Auto) 5.6 (1.4-6.5) 10^3/uL Lymph # (Auto) 1.2 (1.2-3.8) 10^3/uL [place] # (Auto) 0.8 (0.3-0.8) 10^3/uL Eos # (Auto) 0.2 (0.0-0.7) 10^3/uL Baso # (Auto) 0.0 (0.0-0.1) 10^3/uL Abs Immat Gran (auto) 0.02 (0.00-0.03) 10^3/uL Imm/Tot Granulo (auto) 0.3 (0.0-0.5) % PT 10.5 (9.0-11.6) sec INR 0.99 D-Dimer 0.67 H* (<=0.59) mg/L FEU Sodium 134 L (136-145) mmol/L Potassium 4.0 (3.5-5.1) mmol/L Chloride 99 (98-107) mmol/L Carbon Dioxide 23.5 (21.0-32.0) mmol/L Anion Gap 15.5 BUN 16.0 (7.0-18.0) mg/dL Creatinine 1.29 (0.70-1.30) mg/dL Est GFR ( Amer) >60 (>=60 mL/min/1.73m^2) Est GFR (Non-Af Amer) 57 L (>=60 mL/min/1.73m^2) BUN/Creatinine Ratio 12.4 Glucose 130 H (74-106) mg/dL Calcium 8.9 (8.5-10.1) mg/dL Total Bilirubin 0.5 (0.2-1.0) mg/dL AST 15 (15-37) U/L ALT 20 (16-63) U/L Alkaline Phosphatase 139 H (46-116) U/L Troponin I High Sens 5.0 (4.0-76.1) pg/mL Total Protein 7.6 (6.4-8.2) g/dL Albumin 3.6 (3.4-5.0) g/dL Globulin 4.0 g/dL Albumin/Globulin Ratio 0.9 Discharge Plan Discharge Chief Complaint: Chest Pain Clinical Impression: Chest pain, Chest wall pain Patient Disposition: Home, Self-Care Condition: Good Prescriptions / Home Meds: New diclofenac sodium 75 mg tablet,delayed release (DR/EC) 75 mg PO BID PRN (Reason: pain) Qty: 20 0RF orphenadrine citrate 100 mg tablet extended release 100 mg PO BID PRN (Reason: muscle spasm) Qty: 20 0RF No Action aspirin 81 mg tablet,delayed release (DR/EC) 81 mg PO QDAY fluticasone propion-salmeterol 250-50 mcg/dose blister with device 1 inh INHALATION Q12H cyanocobalamin (vitamin B-12) [Vitamin B-12] 1,000 mcg tablet 1,000 mcg PO .QD melatonin 3 mg tablet 3 mg PO QPM PRN (Reason: sleep) levothyroxine 100 mcg tablet 100 mcg PO DAILY quetiapine 100 mg tablet 100 mg PO DAILY Rx Instructions: 100mg in morning 200mg at night orally daily; Print Language: Cambodian Instructions: Chest Wall Pain (ED) Referrals: DANNA QURESHI [Primary Care Provider, Family Practice] - 1 week
[2025-01-24 15:26] LABS: Hematocrit 37.7 % (42.0-54.0); Hemoglobin 13.3 g/dL (14.0-18.0); Immature Granulocytes Abs Auto 0.02 10^3/uL (0.00-0.03); Immature Granulocytes Pct Auto 0.3 % (0.0-0.5); Lymphocytes Absolute Auto 1.2 10^3/uL (1.2-3.8); Mean Corpuscular HGB Conc 35.3 g/dL (29.9-35.2); Mean Corpuscular Hemoglobin 32.0 pg (25.9-34.0); Mean Corpuscular Volume 90.6 fL (80.0-94.0); Platelet Count 220 10^3/uL (150-450); Red Blood Count 4.16 10^6/uL (4.70-6.10); White Blood Count 7.9 10^3/uL (4.0-11.0)
[2025-01-24] MEDS: KETOROLAC TROMETHAMINE 30 MG/ML VIAL 15 MG IVP ×2 (15:37→17:58)
[2025-01-24 15:41] LABS: Alanine Aminotransferase 20 U/L (16-63); Albumin Globulin Ratio 0.9; Albumin Level 3.6 g/dL (3.4-5.0); Alkaline Phosphatase 139 U/L (46-116); Anion Gap 15.5; Aspartate Amino Transferase 15 U/L (15-37); Blood Urea Nitrogen 16.0 mg/dL (7.0-18.0); Calcium 8.9 mg/dL (8.5-10.1); Carbon Dioxide 23.5 mmol/L (21.0-32.0); Chloride 99 mmol/L (98-107); Estimated GFR (African America >60 (>=60 mL/min/1.73m^2); Estimated GFR (Non-African Ame 57 (>=60 mL/min/1.73m^2); Globulin 4.0 g/dL; Glucose 130 mg/dL (74-106); Potassium 4.0 mmol/L (3.5-5.1); Sodium 134 mmol/L (136-145); Total Protein 7.6 g/dL (6.4-8.2)
[2025-01-24 15:49] LABS: INR 0.99; Prothrombin Time 10.5 sec (9.0-11.6)
--- NOTE | 2025-01-24 15:50 | CT_ITS ---
The [address] [address] Patient Name: TONI GERBER MRN: [id number] date: 1965 Sex: M Assigned Patient Location: ER Current Patient Location: ER Accession/Order Number: [id number] Exam Date: 01/24/2025 16:30 Report Date: 01/24/2025 17:24 At the request of: JEVON FLORES MD Procedure: CT angio chest CTA Chest with PE protocol TECHNIQUE: Axial imaging with 2-D and 3-D reconstruction The CT exam was performed using one or more the following dose reduction techniques: Automated exposure control, adjustment of the MA and/or Kv according to patient size, or use of the iterative reconstruction technique. History: 11/07/2023 COMPARISON: 11/07/2023 THYROID: Unremarkable TRACHEA AND BRONCHI: Patent ESOPHAGUS: Unremarkable. HEART: Within normal limits PERICARDIAL EFFUSION: None CORONARY ARTERY CALCIFICATION: None MEDIASTINUM: No adenopathy. No pneumoperitoneum. No mediastinal hematoma. PULMONARY VERONIKA: No hilar mass or adenopathy is seen. THORACIC AORTA Unremarkable PULMONARY EMBOLUS: None LUNG NODULE None LUNGS: Emphysematous changes and chronic interstitial lung changes. Chronic pleural-parenchymal scarring right lung. PLEURAL EFFUSION: None PNEUMOTHORAX: No pneumothorax seen. CHEST WALL: No abnormality AXILLA: Unremarkable BONY STRUCTURES degenerative change UPPER ABDOMEN: Images of the upper abdomen are noncontributory. Ovpaes-t-Oozh in place CT/CT angio chest IMPRESSION: No acute pulmonary embolus. Severe emphysematous changes. Chronic changes. Impression dictated by: Franklin Gomes M.D. 01/24/2025 5:24 PM Dictation Location: [facility] [facility] Electronically authenticated by: [id number] Y Date: 01/24/2025 17:24
[2025-01-24] MEDS: METHYLPREDNISOLONE SOD SUCC PF 125 MG/2 ML VIAL IVP (17:59)
== END 2025-01-24 18:43 | disposition home or self-care (01) ==
PROVIDERS: Emergency Provider Emergency Medicine; PCP Family Medicine
DX: R07.9 Chest pain, unspecified (principal); R07.89 Other chest pain; Z85.118 Personal history of other malignant neoplasm of bronchus and lung; Z87.891 Personal history of nicotine dependence
CPT/HCPCS: 36415; 71045; 71275; 80053; 84484; 85025; 85378; 85610; 93005; 96374; 96375; 96376; 99285; J1885; J2919; Q9967

== ENCOUNTER 2025-02-13 12:07 | Outpatient (OUT) | payer OTHER, MEDICARE, MEDICAID, SELFPAY ==
--- OUTSIDE RECORDS SUMMARY | 2025-02-03 11:00 | XMS_ITS | Encounter Summary ---
Author Organization [facility] Address [address] [place] [address] Care Team Providers Care Horologist Name Role Phone Rylan Andrea MD Primary Care Provider [phone] Nilsa Isidro NP Unavailable [phone] Sanjuana Van LENS HARDENER Unavailable Cindy Yeager OD Unavailable Ophelia James DO Unavailable [phone] Rylan Andrea MD Unavailable [phone] Reason for Referral * Imaging (Routine) - Authorized Specialty Diagnoses / Procedures Referred By Contac t Referred To Contact Radiology Diagnoses Right upper quadrant pain Right atrial enlargement Right ventricular dilation Shortness of breath Procedures Echocardiogram 2D complete Nilsa Isidro NP [address] [place] [address] Phone: tel: fax: [facility] [place] Central Scheduling [address] [place] [address] Phone: tel: fax: Referral ID Status Reason Start Date Expiration Date Visits Requested Visits Authorized [id number] Authorized Perform Procedure 02/03/2025 08/02/2025 1 1 Encounter Details Date Type Department Care Team (Late st Contact Info) Description 02/03/2025 11:00 AM EDT Office Visit [facility] [address] [place] [address] Nilsa Isidro NP [address] [place] [id number] Alcoholic liver disease, unspecified (HHS-HCC) (Primary Dx); Smoker; Elevated liver enzymes; Alcohol use disorder, mild, abuse; Right upper quadrant pain; Right atrial enlargement; Right ventricular dilation; Shortness of breath Social History Tobacco Use Types Packs/Day Years [...] Never 11/12/2023 How often do you attend adventist or anabaptist serv ices? Never 11/12/2023 Do you belong to any clubs o r organizations such as adventist groups, unions, fraternal or athletic groups, or [...] Date Recorded Patient Health Questionnaire-2 Score 6 01/13/2025 [facility] - Occupational Stress Questionnaire Answer Date [...] a care home (including now)? Yes 08/17/2023 Housing Stability Vital Sign Answer Daniel e Recorded In the last 12 months, was t here a time when you were not able to pay the mortgage or rent on time? No 11/12/2023 Number of Times Moved in the Last Year Not on fi le 11/12/2023 At any time in the past 12 m ont, were you homeless or living in a care home (including now)? No 11/12/2023 Sex and Gender Information Value Date Recorded Sex Assigned at Not on file Legal Sex Male 8:15 PM EDT Gender Identity Male 07/26/2022 8:15 PM EDT Sexual Orientation Not on file documented as of this encounter Last Filed Vital Signs Vital Sign Reading Time Taken Comments Blood Pressure 128/60 02/03/2025 10:41 AM EDT Pulse 109 02/03/2025 10:41 AM EDT Temperature 36.9 C (98.4 F) 02/03/2025 10:41 AM EDT Respiratory Rate 16 02/03/2025 10:41 AM EDT Oxygen Saturation 99% 02/03/2025 10:41 AM EDT Inhaled Oxygen Concentration - - Weight 67.6 kg (149 lb) 02/03/2025 10:41 AM EDT Height 182.9 cm (6') 02/03/2025 10:41 AM EDT Body Mass Index 20.21 02/03/2025 10:41 AM EDT documented in this encounter Progress Notes * Nilsa Isidro NP - 02/03/2025 11:00 AM EDT Family Medicine Note Subjective: Chief Complaint: ER follow-up HPI: Kirill Echols presents to the office today for emergency room follow-up. The patient was evaluated in the emergency department for chest pain/pressure. He did undergo extensive cardiac work-up in theemergency department and was told to follow-up outpatient for he on going chest discomfort. In office today the patient reports continued chest pressure. When describing his pain, the patient points more toward the right upper quadrant. He has not recently underwent any testing of the abdomen. On chart review he did have and echocardiogram completed last year which showed elevated pressure of theright side of the heart. He is not currently following with cardiology. Current Outpatient Medications: acetaminophen (Tylenol) 325 MG tablet, 650 mg Orally Q 8 hrs as needed, Disp: , Rfl: Aspirin Low Dose 81 MG EC tablet, Take 81 mg by mouth in the morning. as directed., Disp: , Rfl: diclofenac (Voltaren) 75 MG EC tablet, Take 75 mg by mouth in the morning and 75 mg before bedtime.Do not crush, chew, or split. Given by ER ., Disp: , Rfl: Lwdohvomefy-Zpgpbzxul-Sdkiqs (Trelegy Ellipta) 100-62.5-25 MCG/ACT aerosol powder , Inhale 1 puff Daily, Disp: 60 each, Rfl: 0 levothyroxine (Synthroid, Levoxyl) 100 MCG tablet, Take 1 tablet (100 mcg) by mouth in the morning.Take before meals., Disp: 30 tablet, Rfl: 5 melatonin 3 MG tablet, Take 1 tablet (3 mg) by mouth as needed at bedtime for sleep, Disp: 90 tablet, Rfl: 3 orphenadrine (Norflex) 100 MG 12 hr tablet, Take 100 mg by mouth 2 (two) times a day as needed for muscle spasms Do not crush, chew, or split. Given by ER, Disp: , Rfl: pantoprazole (ProtoNix) 40 MG EC tablet, Daily, Disp: , Rfl: QUEtiapine (SEROquel) 100 MG tablet, Take 1 tablet (100 mg) by mouth 3 (three) times a day Take 1 tablet in the morning and 2 tablets at night, Disp: 270 tablet, Rfl: 0 Medical History: Past Medical History: Diagnosis Date Abdominal cramping 04/03/2024 Abdominal pain 11/08/2023 Acute alcoholism (HCC) 11/08/2023 Acute hypokalemia 11/08/2023 Adenopathy 11/08/2023 Adverse reaction to LUIS inhibitor drug 11/08/2023 Alcoholism (HCC) 10/[facility] Altered mental status 11/08/2023 Amnesia 11/08/2023 Anemia 11/08/2023 Chemical dependency ([facility]) Chest pain 02/25/2020 NSTEMI Chronic nausea 11/08/2023 Costochondral junction syndrome 12/21/2023 Counseling regarding advanced directives 11/08/2023 Depression with anxiety Diarrhea 11/08/2023 Edema 11/08/2023 Gastrointestinal hemorrhage associated with peptic ulcer Heart disease HTN (hypertension) Hx of small bowel obstruction 04/03/2024 Hyperinflation of lungs Hyponatremia Hyposmolality syndrome 12/21/2023 Hypothyroidism 12/21/2023 Insomnia Internal hemorrhoids Joint pain 11/08/2023 Left inguinal hernia Neck pain 11/08/2023 Pain due to neoplasm 11/08/2023 Pancreatitis ([facility]) 2017 Pneumothorax 11/08/2023 Prostatitis Pyuria 11/08/2023 Recurrent acute pancreatitis ([facility]) Septicemia due to E. coli ([facility]) 01/02/2024 Shortness of breath 11/08/2023 Small cell lung cancer in adult ([facility]) Smoker Suicidal ideation 11/08/2023 Tachycardia 11/08/[address] 11/08/2023 TOS (thoracic outlet syndrome) Urinary retention with incomplete bladder emptying 11/08/2023 Vomiting 11/08/2023 Weight loss 11/08/2023 Allergies: Allergies Allergen Reactions Chlordiazepoxide Swelling Edema Lisinopril Swelling Swelling of Lip/Tongue/Throat Sertraline Swelling Swelling of Lip/Tongue/Throat Social History: Tobacco Use: Tobacco Use: Medium Risk (02/03/2025) Patient History Smoking Tobacco Use: Former Smokeless Tobacco Use: Never Passive Exposure: Never Objective: Vitals: 02/03/25 1041 BP: 128/60 Pulse: 109 Resp: 16 Temp: 98.4 ??F TempSrc: Temporal SpO2: 99% Weight: 149 lb Height: 6' Physical Exam Vitals and nursing [...] normal. Behavior: Behavior normal. Judgment: Judgment normal. Assessment: Assess/Plan Problem List Items Addressed This Visit Smoker Relevant Orders US LIVER Elevated liver enzymes Relevant Orders US LIVER Alcohol use disorder, mild, abuse Relevant Orders US LIVER Other Visit Diagnoses Alcoholic liver disease, unspecified (HHS-HCC) - Primary Relevant Orders US LIVER Right upper quadrant pain Relevant Orders Echocardiogram 2D complete Right atrial enlargement Relevant Orders Echocardiogram 2D complete Right ventricular dilation Relevant Orders Echocardiogram 2D complete Shortness of breath Relevant Orders Echocardiogram 2D complete He does have on going complaints of right upper quadrant pain as well as chest pressure. The patient did have a work up completed in the emergency department which was noted to not be acutely cardiac. He does have a history of elevated pressures of there right side of the heart and has not been closely monitoring this. I will order a repeat echocardiogram to be completed. Additionally, I will order a liver US for further diagnostics of his RUQ pain. Follow-up: Follow up for Next scheduled follow-up. documented in this encounter Plan of Treatment Upcoming Encounters Date Type Department Care Team (Late st Contact Info) Description 04/13/2025 2:00 PM EST Office Visit [facility] [address] [place] [address] Nilsa Isidro NP [address] [place] [address] Scheduled Orders Name Type Priority Associated Diagnoses Orde r Schedule US LIVER Imaging Routine Alcoholic liver disease, unspecified (HHS-HCC) Smoker Elevated liver enzymes Alcohol use disorder, mild, abuse Expected: 02/03/2025, Expires: 02/03/2026 Echocardiogram 2D complete Echocardiography Routine Right upper quadrant pain Right atrial enlargement Right ventricular dilation Shortness of breath Expected: 02/03/2025 (Approximate), Expires: 02/03/2027 documented as of this encounter Visit Diagnoses Diagnosis Alcoholic liver disease, unspecified (HHS-HCC)- Primary Smoker Tobacco use disorder Elevated liver enzymes Other nonspecific abnormal serum enzyme levels Alcohol use disorder, mild, abuse Right upper quadrant pain Abdominal pain, right upper quadrant Right atrial enlargement Right ventricular dilation Shortness of breath documented in this encounter Additional Health Concerns Assessment Noted Time PHQ-9 Depression Total Score: 18 025 1:00 PM EDT documented as of this encounter Care Teams Horologist Relationship Specialty Start Date End Date Rylan Andrea MD [address] [place] [address] PCP - General Family Medicine 10/16/22 Rylan Andrea MD [address] [place] [address] PCP - [facility] 05/14/23 Nilsa Isidro FRY COOK [address] [place] [address] Nurse Practitioner Pulmonary Disease 04/03/23 Sanjuana Van LSW [address] [place] [address] Recorder Family Medicine 06/18/23 Cindy Yeager OD [address] [place] [address] Referring Physician Optometry 10/31/23 Ophelia James DO [address] [place] [address] Pulmonary Disease 01/10/24 documented as of this encounter
--- OUTSIDE RECORDS SUMMARY | 2025-02-13 12:10 | XMS_ITS | Encounter Summary ---
Author Organization [facility] Address [address] [place] [address] Care Team Providers Care Commercial Underwriter Name Role Phone Rylan Andrea MD Primary Care Provider [phone] Marilu Craig TEST ENGINEERING MANAGER Unavailable Nilsa Isidro TEST ENGINEERING MANAGER Unavailable [phone] Sanjuana Van SURGICAL TRAINING SPECIALIST Unavailable Cindy Yeager OD Unavailable Ophelia James DO Unavailable [phone] Rylan Andrea MD Unavailable [phone] Encounter Details Date Type Department Care Team (Late st Contact Info) Description 01/08/2024 Abstract [facility] [address] [place] [phone] Rylan Andrea MD [address] [place] [address] Social History Tobacco Use Types [...] How often do you attend sabianist or christian serv ices? Never 11/12/2023 Do [...] Recorded Patient Health Questionnaire-2 Score 5 12/03/2023 [facility] - [...] any time in the past 12 m [facility], were you homeless or living [...] Description 04/13/2025 2:00 PM EST Office Visit [facility] [address] [place] [address] Nilsa Isidro, ELLE [address] [place] [address] documented as of this encounter Visit Diagnoses Not on filedocumented in this encounter Additional Health Concerns Assessment Noted Time PHQ-9 Depression Total Score: 14 024 2:10 PM EDT documented as of this encounter Care Teams Commercial Underwriter Relationship Specialty Start Date End Date Rylan Andrea MD [address] [place] [address] PCP - General Family Medicine 10/16/22 Rylan Andrea MD [address] [place] [id number] PCP - [facility] 05/14/23 Marilu Craig NP [address] [place] [address] Nurse Practitioner Family Medicine 04/03/23 07/17/24 Nilsa Isidro NP [address] [place] [address] Nurse Practitioner Pulmonary Disease 04/03/23 Sanjuana Van LSW [address] [place] [address] Heavy Rail Train Operator Family Medicine 06/18/23 Cindy Yeager OD [facility] [place] [address] Referring Physician Optometry 10/31/23 Ophelia James DO [address] [place] [address] Pulmonary Disease 01/10/24 documented as of this encounter
--- OUTSIDE RECORDS SUMMARY | 2025-02-13 12:10 | XMS_ITS | Encounter Summary ---
Author Organization [facility] Address [address] [facility] [place] [address] Care Team Providers Care Investigator Name Role Phone Rylan Andrea MD Primary Care Provider Marilu Craig LACE WINDER Unavailable Nilsa Isidro LACE WINDER Unavailable [phone] Sanjuana Van ENFORCEMENT SAFETY OFFICER Unavailable Cindy Yeager OD Unavailable Ophelia James DO Unavailable [phone] Rylan Andrea MD Unavailable [phone] Encounter Details Date Type Department Care Team (Late st Contact Info) Description 01/08/2024 Orders Only [facility] [address] [place] [address] Unallocated, Noms ProviderMD [address] [place], [place] [id number] Social History Tobacco Use Types Packs/Day Years [...] Never 11/12/2023 How often do you attend protestant or sabianism serv ices? Never 11/12/2023 Do you belong to any clubs o r organizations such as protestant groups, unions, fraternal or athletic groups, or [...] Health Questionnaire-2 Score 5 12/03/2023 [facility] - Occupational [...] any time in the past 12 m [facility], were you homeless or living in a [...] Description 04/13/2025 2:00 PM EST Office Visit [facility] [address] [place] [address] Nilsa Isidro NP [address] [place] [address] documented as of this encounter Procedures Procedure [...] documented as of this encounter Care Teams Investigator Relationship Specialty Start Date End Date Rylan Andrea MD [address] [place] [address] PCP - General Family Medicine 10/16/22 Rylan Andrea MD [address] [place] [address] PCP - [facility] 05/14/23 Marilu Craig NP [address] [place] [address] Nurse Practitioner Family Medicine 04/03/23 07/17/24 Nilsa Isidro NP [address] [place] [address] Nurse Practitioner Pulmonary Disease 04/03/23 Sanjuana Van LSW [address] [place] [address] Bow Tacker Family Medicine 06/18/23 Cindy Yeager OD [address] [place] [address] Referring Physician Optometry 10/31/23 Ophelia James DO [address] [place] [address] Pulmonary Disease 01/10/24 documented as of this encounter
--- OUTSIDE RECORDS SUMMARY | 2025-02-13 12:10 | XMS_ITS | Encounter Summary ---
Author Organization [facility] Address [address] [facility] [place] [address] Care Team Providers Care Chaplain Name Role Phone Rylan Andrea MD Primary Care Provider [phone] Marilu Craig PLASTIC HOSPITAL PRODUCTS ASSEMBLER Unavailable Nilsa Isidro PLASTIC HOSPITAL PRODUCTS ASSEMBLER Unavailable [phone] Morenita Gomes RN Unavailable [phone] Sanjuana Van QUALITY ASSURANCE TECHNICIAN Unavailable Cindy Yeager OD Unavailable Ophelia James DO Unavailable [phone] Rylan Andrea MD Unavailable [phone] Encounter Details Date Type Department Care Team (Late st Contact Info) Description 12/14/2023 Abstract [facility] [address] [place] [address] Rylan Andrea MD [address] [place] [address] Social History Tobacco Use Types Packs/Day Years [...] Never 11/12/2023 How often do you attend confucianist or samaritan serv ices? Never 11/12/2023 Do you belong to any clubs o r organizations such as confucianist groups, unions, fraternal or athletic groups, or [...] Recorded Patient Health Questionnaire-2 Score 5 12/03/2023 [facility] - [...] 04/13/2025 2:00 PM EST Office [facility] [address] [place] [address] Nilsa Isidro NP [address] [place] [address] documented as of this encounter Visit Diagnoses Not on filedocumented in this encounter Additional Health Concerns Assessment Noted Time PHQ-9 Depression Total Score: 14 024 2:10 PM EDT documented as of this encounter Care Teams Chaplain Relationship Specialty Start Date End Date Rylan Andrea MD [address] [place] [address] PCP - General Family Medicine 10/16/22 Rylan Andrea MD [address] [place] [address] PCP - [facility] 05/14/23 Marilu Craig NP [address] [place] [address] Nurse Practitioner Family Medicine 04/03/23 07/17/24 Nilsa Isidro NP [address] [place] [address] Nurse Practitioner Pulmonary Disease 04/03/23 Morenita Gomes RN [address] [place] [address] Registered Nurse Family Medicine 06/18/23 12/14/23 Sanjuana Van LSW [address] [place] [address] Kitchen Lead Family Medicine 06/18/23 Cindy Yeager OD [address] [place] [address] Referring Physician Optometry 10/31/23 Ophelia James DO [address] [place] [address] Pulmonary Disease 01/10/24 documented as of this encounter
--- OUTSIDE RECORDS SUMMARY | 2025-02-13 12:10 | XMS_ITS | Encounter Summary ---
Author Organization [facility] Address [address] [facility] [place] [address] Care Team Providers Care Linotype Mechanic Name Role Phone Rylan Andrea MD Primary Care Provider Marilu Craig CHAMFERING MACHINE OPERATOR Unavailable Nilsa Isidro CHAMFERING MACHINE OPERATOR Unavailable Sanjuana Van SENIOR SQL DATABASE DEVELOPER Unavailable Cindy Yeager OD Unavailable Ophelia James DO Unavailable [phone] Rylan Andrea MD Unavailable [phone] Encounter Details Date Type Department Care Team (Late st Contact Info) Description 12/18/2023 Orders Only [facility] [address] [place] [address] Rylan Andrea MD [address] [place], [...] Never 11/12/2023 How often do you attend christian or congregational serv ices? Never 11/12/2023 Do you belong to any clubs o r organizations such as christian groups, unions, fraternal or athletic groups, or [...] Recorded Patient Health Questionnaire-2 Score 5 12/03/2023 [facility] - Occupational Stress Questionnaire Answer Date Recorded [...] health care facility (including now)? Yes 08/17/2023 Housing Stability Vital Sign Answer Daniel e Recorded In the last 12 months, was t here a time when you were not able to pay the mortgage or rent on time? No 11/12/2023 Number of Times Moved in the Last Year Not on fi le 11/12/2023 At any time in the past 12 m [facility], were you homeless or living in a [place] health care facility (including now)? No 11/12/2023 Sex and Gender [...] [facility] [address] [place] [address] Nilsa Isidro NP [address] [place] [address] documented as of this encounter Procedures Procedure [...] documented as of this encounter Care Teams Linotype Mechanic Relationship Specialty Start Date End Date Rylan Andrea MD [address] [place] [address] PCP - General Family Medicine 10/16/22 Rylan Andrea MD [address] [place] [address] PCP - [facility] 05/14/23 Marilu Craig NP [address] [place] [address] Nurse Practitioner Family Medicine 04/03/23 07/17/24 Nilsa Isidro NP [address] [place] [address] Nurse Practitioner Pulmonary Disease 04/03/23 Sanjuana Van LSW [address] [place] [address] Senior Ui Software Engineer Family Medicine 06/18/23 Cindy Yeager OD [address] [place] [address] Referring Physician Optometry 10/31/23 Ophelia James DO [address] [place] [address] Pulmonary Disease 01/10/24 documented as of this encounter
--- OUTSIDE RECORDS SUMMARY | 2025-02-13 12:10 | XMS_ITS | Encounter Summary ---
Author Organization [facility] Address [address] [facility] [place] [address] Care Team Providers Care Core Microarchitect Name Role Phone Rylan Andrea MD Primary Care Provider [phone] Marilu Craig MEDIA ANALYST Unavailable Nilsa Isidro MEDIA ANALYST Unavailable [phone] Morenita Gomes RN Unavailable [phone] Sanjuana Van FEED MIXER HELPER Unavailable Cindy Yeager OD Unavailable pOhelia James DO Unavailable [phone] Rylan Andrea MD Unavailable [phone] Encounter Details Date Type Department Care Team (Late st Contact Info) Description 12/25/2022 Orders Only [facility] [address] [place] [address] Rylan Andrea MD [address] [place] [address] Social History Tobacco Use Types Packs/Day Years [...] [facility] [address] [place] [address] Nilsa Isidro, ELLE [address] [place] [address] documented as of this encounter Visit Diagnoses Not on filedocumented in this encounter Care Teams Core Microarchitect Relationship Specialty Start Date End Date Rylan Andrea MD [address] [place] [address] PCP - General Family Medicine 10/16/22 Rylan Andrea MD [address] [place] [address] PCP - [facility] 05/14/23 Marilu Craig NP [address] [place] [address] Nurse Practitioner Family Medicine 04/03/23 07/17/24 Nilsa Isidro NP [address] [place] [address] Nurse Practitioner Pulmonary Disease 04/03/23 Morenita Gomes RN [address] [place], [place] [id number] Registered Nurse Family Medicine 06/18/23 12/14/23 Sanjuana Van, APOLINAR [address] [place] [address] Transportation Planner Family Medicine 06/18/23 Cindy Yeager OD [address] [place] [address] Referring Physician Optometry 10/31/23 Ophelia James DO [address] [place] [address] Pulmonary Disease 01/10/24 documented as of this encounter
--- OUTSIDE RECORDS SUMMARY | 2025-02-13 12:10 | XMS_ITS | Encounter Summary ---
Author Organization [facility] Address [address] [place] [address] Care Team Providers Care Manager Pharmacy Name Role Phone Rylan Andrea MD Primary Care Provider [phone] Marilu Craig FINANCIAL RISK MANAGER Unavailable Nilsa Isidro FINANCIAL RISK MANAGER Unavailable [phone] Morenita Gomes RN Unavailable [phone] Sanjuana Van OBSTETRICAL NURSE Unavailable Cindy Yeager OD Unavailable Ophelia James DO Unavailable [phone] Rylan Andrea MD Unavailable [phone] Encounter Details Date Type Department Care Team (Late st Contact Info) Description 12/22/2022 External Result Encounter [facility] External Department Unsolicited Manuel Varma, DO [address] [place] [address] Social History Tobacco Use Types Packs/Day Years [...] [facility] [address] [place] [address] Nilsa Isidro NP [address] [place] [address] documented as of this encounter Procedures Procedure [...] Ellison Jr., D.O.12/22/2022 11:42 AM Dictation Location: [id number] Transcribed By: MARU 12/22/22 1142 Dictated By: Victorino Ellison Jr, DO 12/22/22 1135 Signed By: <Electronically signed by Victorino Ellison Jr, DO in OV> 12/22/22 1142 Narrative 12/26/2022 12:26 PM EDT [facility] [address] [address] Nuclear Medicine Report Signed Patient: Kirill Echols MR#: [id number] 194 : 1965 Acct:[id number] Age/Sex: 57 / M ADM Date: 12/22/22 [...] Procedure Note Radiology, Radiologist, MD - 12/26/2022 [facility] [place] [address] Nuclear Medicine Report Signed Patient: Kirill Echols [facility]#: [id number] : 1965Acct:[id number] Age/Sex: 57 / MADM Date: 12/22/22 Loc: [...] Ellison Jr., D.OSesar12/22/2022 11:42 AM Dictation Location: [place] [address] Transcribed By: [facility] 12/22/22 1142 Dictated By: Victorino Ellison Jr, DO 12/22/22 1135 Signed By: <Electronically signed by Victorino Ellison Jr, DO inOV> 12/22/22 1142 Manuel Varma DO IMG CT PROCEDURES Final R esult documented in this encounter Visit Diagnoses Not on filedocumented in this encounter Care Teams Manager Pharmacy Relationship Specialty Start Date End Date Rylan Andrea MD [address] [place] [address] PCP - General Family Medicine 10/16/22 Rylan Andrea MD [address] [place] [address] PCP - [facility] 05/14/23 Marilu Craig NP [address] [place] [address] Nurse Practitioner Family Medicine 04/03/23 07/17/24 Nilsa Isidro NP [address] [place] [address] Nurse Practitioner Pulmonary Disease 04/03/23 Morenita Gomes, RN [address] [place] [address] Registered Nurse Family Medicine 06/18/23 12/14/23 Sanjuana Van LSW [address] [place] [address] Dermatology Nurse Practitioner Family Medicine 06/18/23 Cindy Yeager OD [address] [place] [address] Referring Physician Optometry 10/31/23 Ophelia James, [address] [place] [address] Pulmonary Disease 01/10/24 documented as of this encounter
--- OUTSIDE RECORDS SUMMARY | 2025-02-13 12:10 | XMS_ITS | Encounter Summary ---
Author Organization [facility] Address [address] [facility] [place] [address] Care Team Providers Care Commissioned Fire Officer Name Role Phone Rylan Andrea MD Primary Care Provider Marilu Craig RESEARCH KENNEL SUPERVISOR Unavailable Nilsa Isidro RESEARCH KENNEL SUPERVISOR Unavailable [phone] Morenita Gomes RN Unavailable [phone] Sanjuana Van SALES PROMOTION OFFICER Unavailable Cindy Yeager OD Unavailable Ophelia James DO Unavailable [phone] Rylan Andrea MD Unavailable [phone] Encounter Details Date Type Department Care Team (Late st Contact Info) Description 11/07/2022 Abstract [facility] [address] [place] [address] Rylan Andrea MD [address] [place] [address] Social History Tobacco Use Types Packs/Day Years [...] [facility] [address] [place] [address] Nilsa Isidro NP [address] [place] [address] documented as of this encounter Visit Diagnoses Not on filedocumented in this encounter Care Teams Commissioned Fire Officer Relationship Specialty Start Date End Date Rylan Andrea MD [address] [place] [address] PCP - General Family Medicine 10/16/22 Rylan Andrea MD [address] [place] [address] PCP - [facility] 05/14/23 Marilu Craig NP [address] [place] [address] Nurse Practitioner Family Medicine 04/03/23 07/17/24 Nilsa Isidro NP [address] [place] [address] Nurse Practitioner Pulmonary Disease 04/03/23 Morenita Gomes, RN [address] [place] [address] Registered Nurse Family Medicine 06/18/23 12/14/23 Sanjuana Van LSW [address] [place] [address] Captain Waiter Family Medicine 06/18/23 Cindy Yeager OD [address] [place] [address] Referring Physician Optometry 10/31/23 Ophelia James DO [address] [place] [address] Pulmonary Disease 01/10/24 documented as of this encounter
--- OUTSIDE RECORDS SUMMARY | 2025-02-13 12:10 | XMS_ITS | Encounter Summary ---
Author Organization [facility] Address [address] [facility] [place] [address] Care Team Providers Care Associate Faculty Name Role Phone Rylan Andrea MD Primary Care Provider Marilu Craig SUPPLY AIDE Unavailable Nilsa Isidro SUPPLY AIDE Unavailable [phone] Sanjuana Van ONLINE USER EXPERIENCE STRATEGIST Unavailable Cindy Yeager OD Unavailable Ophelia James DO Unavailable [phone] Rylan Andrea MD Unavailable [phone] Encounter Details Date Type Department Care Team (Late st Contact Info) Description 01/07/2024 Abstract [facility] [address] [place] [address] Rylan Andrea MD [address] [place] [address] Social History Tobacco Use Types [...] Never 11/12/2023 How often do you attend latter day or pentecostal serv ices? Never 11/12/2023 Do you belong to any clubs o r organizations such as latter day groups, unions, fraternal or athletic groups, or [...] Recorded Patient Health Questionnaire-2 Score 5 12/03/2023 [facility] Occupat ional Health - [...] [facility] [address] [place] [address] Nilsa Isidro, EL[place] [address] [place] [address] documented as of this encounter Visit Diagnoses Not on filedocumented in this encounter Additional Health Concerns Assessment Noted Time PHQ-9 Depression Total Score: 14 024 2:10 PM EDT documented as of this encounter Care Teams Associate Faculty Relationship Specialty Start Date End Date Rylan Andrea MD [address] [place] [address] PCP - General Family Medicine 10/16/22 Rylan Andrea MD [address] [place] [id number] PCP - [facility] 05/14/23 Marilu Craig NP [address] [place] [address] Nurse Practitioner Family Medicine 04/03/23 07/17/24 Nilsa Isidro NP [address] [place] [address] Nurse Practitioner Pulmonary Disease 04/03/23 Sanjuana Van LSW [address] [place] [address] Poultry Farmer Egg Family Medicine 06/18/23 Cindy Yeager OD [facility] [place] [address] Referring Physician Optometry 10/31/23 Ophelia James DO [address] [place] [address] Pulmonary Disease 01/10/24 documented as of this encounter
--- OUTSIDE RECORDS SUMMARY | 2025-02-13 12:10 | XMS_ITS | Encounter Summary ---
Author Organization [facility] Address [address] [facility] [place] [address] Care Team Providers Care Data Analyst Etl Developer Name Role Phone Rylan Andrea MD Primary Care Provider Marilu Craig WOOD AND HARDWARE OUTFITTER Unavailable Nilsa Isidro WOOD AND HARDWARE OUTFITTER Unavailable [phone] Sanjuana Van NURSERY HAND Unavailable Cindy eYager OD Unavailable Ophelia James DO Unavailable [phone] Rylan Andrea MD Unavailable [phone] Encounter Details Date Type Department Care Team (Late st Contact Info) Description 12/17/2023 Abstract [facility] [address] [place] [address] Rylan Andrea MD [address] [place] [address] Social History Tobacco Use Types [...] Never 11/12/2023 How often do you attend gnosticist or advent serv ices? Never 11/12/2023 Do you belong to any clubs o r organizations such as gnosticist groups, unions, fraternal or athletic groups, or [...] Recorded Patient Health Questionnaire-2 Score 5 12/03/2023 [facility] Occupat ional Health [...] place to sleep or slept in a mcfp (including now)? Yes 08/17/2023 Housing Stability Vital Sign Answer Daniel e Recorded In the last 12 months, was t here a time when you were not able to pay the mortgage or rent on time? No 11/12/2023 Number of Times Moved in the Last Year Not on fi le 11/12/2023 At any time in the past 12 m [facility], were you homeless or living in a mcfp (including now)? No 11/12/2023 Sex and Gender [...] [facility] [address] [place] [address] Nilsa Isidro, ELLE [address] [place] [address] documented as of this encounter Visit Diagnoses Not on filedocumented in this encounter Additional Health Concerns Assessment Noted Time PHQ-9 Depression Total Score: 14 024 2:10 PM EDT documented as of this encounter Care Teams Data Analyst Etl Developer Relationship Specialty Start Date End Date Rylan Andrea MD [address] [place] [address] PCP - General Family Medicine 10/16/22 Rylan Andrea MD [address] [place] [id number] PCP - [facility] 05/14/23 Marilu Craig NP [address] [place] [address] Nurse Practitioner Family Medicine 04/03/23 07/17/24 Nilsa Isidro NP [address] [place] [address] Nurse Practitioner Pulmonary Disease 04/03/23 Sanjuana Van LSW [address] [place] [address] Retail Merchandising Specialist Family Medicine 06/18/23 Cindy Yeager OD [facility] [place] [address] Referring Physician Optometry 10/31/23 Ophelia James DO [address] [place] [address] Pulmonary Disease 01/10/24 documented as of this encounter
--- OUTSIDE RECORDS SUMMARY | 2025-02-13 12:10 | XMS_ITS | Encounter Summary ---
Author Organization [facility] Address [address] [facility] [place] [address] Care Team Providers Care Musician Instrumental Name Role Phone Rylan Andrea MD Primary Care Provider [phone] Marilu Craig MANAGER UTILIZATION MANAGEMENT Unavailable Nilsa Isidro MANAGER UTILIZATION MANAGEMENT Unavailable Sanjuana Van SOLAR PANEL INSTALLATION SUPERVISOR Unavailable Cindy Yeager OD Unavailable Ophelia James DO Unavailable [phone] Rylan Andrea MD Unavailable [phone] Encounter Details Date Type Department Care Team (Late st Contact Info) Description 01/07/2024 Abstract [facility] [address] [place] [address] Rylan Andrea MD [address] [place] [address] Social History Tobacco Use Types [...] Never 11/12/2023 How often do you attend alevism or caodaism serv ices? Never 11/12/2023 Do you belong to any clubs o r organizations such as alevism groups, unions, fraternal or athletic groups, or [...] Recorded Patient Health Questionnaire-2 Score 5 12/03/2023 [facility] of Occupat ional Health - Occupational [...] [facility] [address] [place] [address] Nilsa Isidro, ELLE [address] [place] [address] documented as of this encounter Visit Diagnoses Not on filedocumented in this encounter Additional Health Concerns Assessment Noted Time PHQ-9 Depression Total Score: 14 024 2:10 PM EDT documented as of this encounter Care Teams Musician Instrumental Relationship Specialty Start Date End Date Rylan Andrea MD [address] [place] [address] PCP - General Family Medicine 10/16/22 Rylan Andrea MD [address] [place] [id number] PCP - [facility] 05/14/23 Marilu Craig NP [address] [place] [address] Nurse Practitioner Family Medicine 04/03/23 07/17/24 Nilsa Isidro NP [address] [place] [address] Nurse Practitioner Pulmonary Disease 04/03/23 Sanjuana Van LSW [address] [place] [address] Atmospheric Chemist Family Medicine 06/18/23 Cindy Yeager OD [facility] [place] [address] Referring Physician Optometry 10/31/23 Ophelia James DO [address] [place] [address] Pulmonary Disease 01/10/24 documented as of this encounter
--- OUTSIDE RECORDS SUMMARY | 2025-02-13 12:10 | XMS_ITS | Encounter Summary ---
Author Organization [facility] Address [address] [facility] [place] [address] Care Team Providers Care Rice Cleaning Machine Tender Name Role Phone Rylan Andrea MD Primary Care Provider Marilu Craig DIRECTOR DIGITAL ANALYTICS Unavailable Nilsa Isidro DIRECTOR DIGITAL ANALYTICS Unavailable Sanjuana Van SEAMAN OFFICER Unavailable Cindy Yeager OD Unavailable Ophelia James DO Unavailable [phone] Rylan Andrea MD Unavailable [phone] Encounter Details Date Type Department Care Team (Late st Contact Info) Description 01/07/2024 Abstract [facility] [address] [place] [address] Rylan Andrea MD [address] [place] [address] Social History Tobacco Use Types [...] Never 11/12/2023 How often do you attend roman catholic or rastafari serv ices? Never 11/12/2023 Do you belong to any clubs o r organizations such as roman catholic groups, unions, fraternal or athletic groups, or [...] Recorded Patient Health Questionnaire-2 Score 5 12/03/2023 [facility] of Occupat ional Health [...] No 11/12/2023 Housing Stability Vital Sign Answer Daneil e Recorded In the last 12 months, [...] any time in the past 12 m [facility], were you homeless or living [...] [facility] [address] [place] [address] Nilsa Isidro, ELLE [address] [place] [address] documented as of this encounter Visit Diagnoses Not on filedocumented in this encounter Additional Health Concerns Assessment Noted Time PHQ-9 Depression Total Score: 14 024 2:10 PM EDT documented as of this encounter Care Teams Rice Cleaning Machine Tender Relationship Specialty Start Date End Date Rylan Andrea MD [address] [place] [address] PCP - General Family Medicine 10/16/22 Rylan Andrea MD [address] [place] [id number] PCP - [facility] 05/14/23 Marilu Craig NP [address] [place] [address] Nurse Practitioner Family Medicine 04/03/23 07/17/24 Nilsa Isidro NP [address] [place] [address] Nurse Practitioner Pulmonary Disease 04/03/23 Sanjuana Van LSW [address] [place] [address] Patternmaker Hand Family Medicine 06/18/[address] [facility] [place] [address] Referring Physician Optometry 10/31/23 Ophelia James DO [address] [place] [address] Pulmonary Disease 01/10/24 documented as of this encounter
--- OUTSIDE RECORDS SUMMARY | 2025-02-13 12:10 | XMS_ITS | Encounter Summary ---
Author Organization [facility] Address [address] [facility] [place] [address] Care Team Providers Care Motor Brakeman Name Role Phone Rylan Andrea MD Primary Care Provider Marilu Craig PRECINCT CAPTAIN Unavailable Nilsa Isidro PRECINCT CAPTAIN Unavailable Morenita Gomes RN Unavailable [phone] Sanjuana Van SPIDER ASSEMBLER Unavailable Cindy Yeager OD Unavailable Ophelia James DO Unavailable [phone] Rylan Andrea MD Unavailable [phone] Encounter Details Date Type Department Care Team (Late st Contact Info) Description 12/13/2023 Abstract [facility] [address] [place] [address] Rylan Andrea MD [address] [place] [address] Social History Tobacco Use Types Packs/Day Years [...] Never 11/12/2023 How often do you attend orthodox or restorationist serv ices? Never 11/12/2023 Do you belong to any clubs o r organizations such as orthodox groups, unions, fraternal or athletic groups, [...] Recorded Patient Health Questionnaire-2 Score 5 12/03/2023 [facility] of Occupat ional Health - [...] in the past 12 m [facility], were you homeless or living [...] [facility] [address] [place] [address] Nilsa Isidro NP [address] [place] [address] documented as of this encounter Visit Diagnoses Not on filedocumented in this encounter Additional Health Concerns Assessment Noted Time PHQ-9 Depression Total Score: 14 024 2:10 PM EDT documented as of this encounter Care Teams Motor Brakeman Relationship Specialty Start Date End Date Rylan Andrea MD [address] [place] [address] PCP - General Family Medicine 10/16/22 Rylan Andrea MD [address] [place] [address] PCP - [facility] 05/14/23 Marilu Craig NP [address] [place] [address] Nurse Practitioner Family Medicine 04/03/23 07/17/24 Nilsa Isidro NP [address] [place] [address] Nurse Practitioner Pulmonary Disease 04/03/23 Morenita Gomes RN [address] [place] [address] Registered Nurse Family Medicine 06/18/23 12/14/23 Sanjuana Van LSW [address] [place] [address] Instrumentation Supervisor Family Medicine 06/18/23 Cindy Yeager OD [address] [place] [address] Referring Physician Optometry 10/31/23 Ophelia James DO [address] [place] [address] Pulmonary Disease 01/10/24 documented as of this encounter
--- OUTSIDE RECORDS SUMMARY | 2025-02-13 12:10 | XMS_ITS | Encounter Summary ---
Author Organization [facility] Address [address] [facility] [place] [address] Care Team Providers Care Demolition Crane Operator Name Role Phone Rylan Andrea MD Primary Care Provider [phone] Marilu Cragi VICTIM WITNESS ADMINISTRATOR Unavailable Nilsa Isidro VICTIM WITNESS ADMINISTRATOR Unavailable Sanjuana Van TANNING WHEEL FILLER Unavailable Cindy Yeager OD Unavailable Ophelia James DO Unavailable [phone] Rylan Andrea MD Unavailable [phone] Encounter Details Date Type Department Care Team (Late st Contact Info) Description 12/18/2023 Abstract [facility] [address] [place] [address] Rylan Andrea MD [address] [place] [address] Social History Tobacco Use Types [...] Never 11/12/2023 How often do you attend taoist or methodist serv ices? Never 11/12/2023 Do you belong to any clubs o r organizations such as taoist groups, unions, fraternal or athletic groups, or [...] Recorded Patient Health Questionnaire-2 Score 5 12/03/2023 [facility] of Occupat ional Health - Occupational Stress [...] [facility] [address] [place] [address] Nilsa Isidro, ELLE [address] [place] [address] documented as of this encounter Visit Diagnoses Not on filedocumented in this encounter Additional Health Concerns Assessment Noted Time PHQ-9 Depression Total Score: 14 024 2:10 PM EDT documented as of this encounter Care Teams Demolition Crane Operator Relationship Specialty Start Date End Date Rylan Andrea MD [address] [place] [address] PCP - General Family Medicine 10/16/22 Rylan Andrea MD [address] [place] [id number] PCP - [facility] 05/14/23 Marilu Craig NP [address] [place] [address] Nurse Practitioner Family Medicine 04/03/23 07/17/24 Nilsa Isidro NP [address] [place] [address] Nurse Practitioner Pulmonary Disease 04/03/23 Sanjuana Van LSW [address] [place] [address] Blasting Coal Miner Family Medicine 06/18/23 Cindy Yeager OD [facility] [place] [address] Referring Physician Optometry 10/31/23 Ophelia James DO [address] [place] [address] Pulmonary Disease 01/10/24 documented as of this encounter
--- OUTSIDE RECORDS SUMMARY | 2025-02-13 12:10 | XMS_ITS | Encounter Summary ---
Author Organization [facility] Address [address] [facility] [place] [address] Care Team Providers Care Roofing Tile Sorter Name Role Phone Rylan Andrea MD Primary Care Provider [phone] Marilu Craig NP Unavailable Nilsa Isidro CHEMIST INSTRUMENTATION Unavailable [phone] Sanjuana Van MECHANIC RECOVERY Unavailable Cindy Yeager OD Unavailable Ophelia James DO Unavailable [phone] Rylan Andrea MD Unavailable [phone] Encounter Details Date Type Department Care Team (Late st Contact Info) Description 12/16/2023 Orders Only [facility] [address] [place] [address] Marilu Craig NP [address] [facility] [address] [place] [address] Social History Tobacco Use Types Packs/Day Years [...] Never 11/12/2023 How often do you attend synagogue or gnosticist serv ices? Never 11/12/2023 Do you belong to any clubs o r organizations such as synagogue groups, unions, fraternal or athletic groups, or [...] Recorded Patient Health Questionnaire-2 Score 5 12/03/2023 [facility] of Occupat ional Health [...] in a halfway (including now)? Yes 08/17/2023 Housing Stability Vital Sign Answer Daniel e Recorded In the last 12 months, was t here a time when you were not able to pay the mortgage or rent on time? No 11/12/2023 Number of Times Moved in the Last Year Not on fi le 11/12/2023 At any time in the past 12 m [facility], were you homeless or living in a halfway (including now)? No 11/12/2023 Sex and Gender [...] [facility] [address] [place] [address] Nilsa Isidro NP [address] [place] [address] documented as of this encounter Procedures Procedure Name Priority Date/Time Associated Diagnosis Comments XR CHEST 1 VIEW Routine 12/16/2023 8:18 PM EDT documented in this encounter Results * XR chest 1 view (12/16/2023 8:18 PM EDT) Anatomical Region Laterality Modality Chest Radiographic Anna ging Marilu Craig CHEMIST INSTRUMENTATION IMG XR PROCEDURES Final Result documented in this encounter Visit Diagnoses Not on filedocumented in this encounter Additional Health Concerns Assessment Noted Time PHQ-9 Depression Total Score: 14 024 2:10 PM EDT documented as of this encounter Care Teams Roofing Tile Sorter Relationship Specialty Start Date End Date Rylan Andrea MD [address] [place] [address] PCP - General Family Medicine 10/16/22 Rylan Andrea MD [address] [place] [address] PCP - [facility] 05/14/23 Marilu Craig NP [address] [place] [address] Nurse Practitioner Family Medicine 04/03/23 07/17/24 Nilsa Isidro NP [address] [place] [address] Nurse Practitioner Pulmonary Disease 04/03/23 Sanjuana Van, MECHANIC RECOVERY [address] [place], [place] [id number] Employee Placement Specialist Family Medicine 06/18/23 Shobha, Cindy, MAJO [address] [place] [address] Referring Physician Optometry 10/31/23 Ophelia James DO [address] [place] [address] Pulmonary Disease 01/10/24 documented as of this encounter
--- OUTSIDE RECORDS SUMMARY | 2025-02-13 12:10 | XMS_ITS | Encounter Summary ---
Author Organization [facility] Address [address] [facility] [place] [address] Care Team Providers Care Home Furnishings Sales Representative Name Role Phone Rylan Andrea MD Primary Care Provider [phone] Marilu Craig STERILE PROCESS TECH Unavailable Nilsa Isidro STERILE PROCESS TECH Unavailable [phone] Sanjuana Van FREELANCE MAKEUP ARTIST Unavailable Cindy Yeager OD Unavailable Ophelia James DO Unavailable [phone] Rylan Andrea MD Unavailable [phone] Encounter Details Date Type Department Care Team (Late st Contact Info) Description 01/07/2024 Abstract [facility] [address] [place] [address] Rylan Andrea MD [address] [place] [address] Social History Tobacco Use Types [...] How often do you attend scientology or jainism serv ices? Never 11/12/2023 Do [...] Recorded Patient Health Questionnaire-2 Score 5 12/03/2023 [facility] of Occupat ional Health - Occupational [...] any time in the past 12 m [facility], were you homeless or living [...] [facility] [address] [place] [address] Nilsa Isidro, EL[place] [address] [place] [address] documented as of this encounter Visit Diagnoses Not on filedocumented in this encounter Additional Health Concerns Assessment Noted Time PHQ-9 Depression Total Score: 14 024 2:10 PM EDT documented as of this encounter Care Teams Home Furnishings Sales Representative Relationship Specialty Start Date End Date Rylan Andrea MD [address] [place] [address] PCP - General Family Medicine 10/16/22 Rylan Andrea MD [address] [place] [id number] PCP - [facility] 05/14/23 Marilu Craig NP [address] [place] [address] Nurse Practitioner Family Medicine 04/03/23 07/17/24 Nilsa Isidro NP [address] [place] [address] Nurse Practitioner Pulmonary Disease 04/03/23 Sanjuana Van LSW [address] [place] [address] Mattress And Foundation Sewer Family Medicine 06/18/23 Cindy Yeager OD [facility] [place] [address] Referring Physician Optometry 10/31/23 Ophelia James DO [address] [place] [address] Pulmonary Disease 01/10/24 documented as of this encounter
--- OUTSIDE RECORDS SUMMARY | 2025-02-13 12:11 | XMS_ITS | Encounter Summary ---
Author Organization [facility] Address [address] [facility] [place] [address] Care Team Providers Care Tank Inspector Name Role Phone Rylan Andrea MD Primary Care Provider Marilu Craig NP Unavailable Nilsa Isidro BELL ATTENDANT Unavailable Morenita Gomes RN Unavailable [phone] Sanjuana Van RESIDENTIAL GAS HEAT TECHNICIAN Unavailable Cindy Yeager OD Unavailable Ophelia James DO Unavailable [phone] Rylan Andrea MD Unavailable [phone] Encounter Details Date Type Department Care Team (Late st Contact Info) Description 11/26/2023 [facility] [address] [place] [address] Marilu Craig NP [address] [facility] [address] [place] [address] Social History Tobacco Use Types Packs/Day Years [...] often do you attend roman catholic or hinduism serv ices? Never 11/12/2023 Do you belong [...] Recorded Patient Health Questionnaire-2 Score 4 11/12/2023 [facility] of Occupat ional Health - Occupational [...] 04/13/2025 2:00 PM EST Office Visit [facility] [address] [place] [address] Nilsa Isidro, ELLE [address] [place] [address] documented as of this encounter Visit Diagnoses Not on filedocumented in this encounter Additional Health Concerns Assessment Noted Time PHQ-9 Depression Total Score: 11 024 3:05 PM EDT documented as of this encounter Care Teams Tank Inspector Relationship Specialty Start Date End Date Rylan Andrea MD [address] [place] [address] PCP - General Family Medicine 10/16/22 Rylan Andrea MD [address] [place] [address] PCP - [facility] 05/14/23 Marilu Craig NP [address] [place] [address] Nurse Practitioner Family Medicine 04/03/23 07/17/24 Nilsa Isidro NP [address] [place] [address] Nurse Practitioner Pulmonary Disease 04/03/23 Morenita Gomes, ARTHUR [address] [place] [address] Registered Nurse Family Medicine 06/18/23 12/14/23 Sanjuana Van LSW [address] [place] [address] Certified Medical Technician Assistant Family Medicine 06/18/23 Cindy Yeager OD [address] [place] [address] Referring Physician Optometry 10/31/23 Ophelia James DO [address] [place] [address] Pulmonary Disease 01/10/24 documented as of this encounter
--- OUTSIDE RECORDS SUMMARY | 2025-02-13 12:11 | XMS_ITS | Patient Health Record ---
Author Organization [facility] Address [address] [place] [address] Care Team Providers Care Carbon Paste Mixer Operator Name Role Phone Brook Portillo Primary Care Provider Reason For Referral No Information Problems Problem Type SNOMED Code ICD Code Onset Dates Problem Status W/U Status Risk Notes Problem Depression (478768750) Depression (F32.9) Active confirmed Plan Of Treatment No Information Insurance Providers Payer Name Payer Address Payer Phone Subscriber Number Group Number Insured Name Patient Relationship to Insured Coverage Start Date Coverage End Date [facility] COMMERCIAL MEDICAL CLAIMS [address] [address] [place] [address] [phone] [id number] TONI GERBER Self - patient is the insured 2 [place] [address] [place] [address] [id number] TONI GERBER Self - patient is the insured 2 MEDICARE [place] [address] [place] [address] [id number] TONI GERBER Self - patient is the insured 2 [place] [address] [place] [address] [id number] TONI GERBER Self - patient is the insured 2
--- OUTSIDE RECORDS SUMMARY | 2025-02-13 12:11 | XMS_ITS | Encounter Summary ---
Author Organization [facility] Address [id number] [place] [address] Care Team Providers Care Manager Intern Name Role Phone Rylan Andrea MD Primary Care Provider [phone] Encounter Details Date Type Department Care Team (Late st Contact Info) Description 12/21/2023 Orders Only [facility] - Family Medicine [address] [place] [address] Ryan Kang, DO [address] [facility] [place] [address] Social History Tobacco Use Types Packs/Day Years Used Date Smoking Tobacco: Never Assessed Childcare Answer Date Recorded Childcare Unknown 10/24/2018 Employment Answer Date Recorded Employment Unknown 10/24/2018 Purpose - Life Answer Date Recorded Purpose and direction in life Unknown Sex and Gender Information Value Date Recorded Sex Assigned at Not on file Legal Sex Male 3:28 PM EDT Gender Identity Not on file Sexual Orientation Not on file documented as of this encounter Plan of Treatment Not on file documented as of this encounter Visit Diagnoses Not on filedocumented in this encounter Care Teams Manager Intern Relationship Specialty Start Date End Date Rylan Andrea MD [address] [place] [address] PCP - General 11/09/17 documented as of this encounter
--- OUTSIDE RECORDS SUMMARY | 2025-02-13 12:11 | XMS_ITS | Encounter Summary ---
Author Organization [facility] Address [address] [facility] [address] Care Team Providers Care Lead Atg Developer Name Role Phone Ryaln Andrea MD Primary Care Provider Marilu Craig TELESALES SPECIALIST Unavailable Nilsa Isidro TELESALES SPECIALIST Unavailable Morenita Gomes RN Unavailable Sanjuana Van FACILITIES ASSISTANT Unavailable Cindy Yeager OD Unavailable Ophelia James DO Unavailable [phone] Rylan Andrea MD Unavailable [phone] Encounter Details Date Type Department Care Team (Late st Contact Info) Description 11/26/2023 Orders Only [facility] [address] [place] [address] Rylan Andrea MD [address] [place] [address] Social History Tobacco Use Types Packs/Day Years [...] How often do you attend confucianist or hindu serv ices? Never 11/12/2023 Do [...] Recorded Patient Health Questionnaire-2 Score 4 11/12/2023 [facility] of Occupat ional Health - Occupational Stress [...] 04/13/2025 2:00 PM EST Office Visit [facility] [address] [place] [address] Nilsa Isidro NP [address] [place] [address] documented as of this encounter Procedures Procedure [...] documented as of this encounter Care Teams Lead Atg Developer Relationship Specialty Start Date End Date Rylan Andrea MD [address] [place] [address] PCP - General Family Medicine 10/16/22 Rylan Andrea MD [address] [place] [address] PCP - [facility] 05/14/23 Marilu Craig NP [address] [place] [address] Nurse Practitioner Family Medicine 04/03/23 07/17/24 Nilsa Isidro NP [address] [place] [address] Nurse Practitioner Pulmonary Disease 04/03/23 Morenita Gomes, RN [address] [place] [address] Registered Nurse Family Medicine 06/18/23 12/14/23 Sanjuana Van LSW [address] [place] [address] Heel Cementer Machine Family Medicine 06/18/23 Cindy Yeager OD [facility]5 [place] [address] Referring Physician Optometry 10/31/23 Ophelia James DO [address] [place] [address] Pulmonary Disease 01/10/24 documented as of this encounter
--- OUTSIDE RECORDS SUMMARY | 2025-02-13 12:11 | XMS_ITS | Clinical Summary ---
Author Organization [facility] tem Address [id number] [address] 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 Adult failure to thrive 12/21/2023 Hypothyroidism 12/21/2023 Hyposmolality syndrome 12/21/2023 Refusal of statin medication by patient 09/10/19 24 Alcoholism 09/25/2022 Allodynia 09/25/2022 Anemia due to antineoplastic chemotherapy 2022 Erectile dysfunction due to diseases classified elsewhere 09/25/2022 GERD (gastroesophageal reflux disease) Hypoalbuminemia 09/25/2022 Insomnia 09/25/2022 Decreased appetite 09/25/2022 Mass of soft tissue of right upper extremity Neuropathy of right hand 09/25/2022 Osteoarthritis 09/25/2022 Gingivitis 09/25/2022 Pancreatitis 09/25/2022 Sleep apnea 09/25/2022 Small cell lung cancer in adult 09/25/2022 Thoracic outlet syndrome 09/25/2022 Vitamin D deficiency 09/25/2022 Acute non-ST segment elevation myocardial infarc tion 03/05/2020 Malignant neoplasm of lung 12/11/2019 Disorder of soft tissue 10/21/2019 Panic disorder 07/25/2019 Alcohol abuse 07/22/2019 Mixed anxiety and depressive disorder 07/22/2019 Essential hypertension 08/02/2017 Severe episode of recurrent major depressive disorder, 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 coli Immunizations Immunization Administration Dates Next Due Influenza, Injectable, quadrivalent (PF) 020,03/15/2020 Social History Tobacco Use Types Packs/Day Years [...] Sign Reading Time Taken Comments Blood Pressure 108/78 12/21/2023 3:58 PM EDT Pulse 96 12/21/2023 3:58 PM EDT Temperature 36.6 C (97.8 F) 12/21/2023 3:58 PM EDT Respiratory Rate 18 12/21/2023 3:58 PM EDT Oxygen Saturation 92% 12/21/2023 3:58 PM EDT Inhaled Oxygen Concentration - - Weight 63.3 kg (139 lb 8 oz) 12/21/2023 3:58 PM EDT Height 182.9 cm (6') 12/21/2023 3:58 PM EDT Body Mass Index 18.92 12/21/2023 3:58 PM EDT Plan of Treatment Health Maintenance Due Date Last Done Comments Statin Use: Cardiovascular 1965 Depression Screening 1977 Tobacco Screening 1977 DTaP,Tdap and Td Vaccines (1 - Tdap) 1984 Zoster (Shingles) Vaccine (1 of 2) 1984 COVID-19 Vaccine (3 - Pfizer risk series) 09/29/2020 09/01/2020, 07/30/2020 Adult BMI Screening 12/20/2024 12/21/2023 Influenza Vaccine 01/12/2025 03/24/2020, 03/15/2020 Medical Devices Not on file Insurance [facility] Care Teams Care Worker Relationship Specialty Start Date End Date Rylan Andrea MD [address] [place] [address] PCP - General 11/09/17
--- OUTSIDE RECORDS SUMMARY | 2025-02-13 12:11 | XMS_ITS | Encounter Summary ---
Author Organization [facility] Address [address] [facility] [place] [address] Care Team Providers Care Medicare Insurance Specialist Name Role Phone Rylan Andrea MD Primary Care Provider Marilu Craig NP Unavailable Nilsa Isidro WAITER WAITRESS Unavailable [phone] Morenita Gomes RN Unavailable [phone] Sanjuana Van PET CARETAKER Unavailable Cindy Yeager OD Unavailable Ophelia James DO Unavailable [phone] Rylan Andrea MD Unavailable [phone] Encounter Details Date Type Department Care Team (Late st Contact Info) Description 10/10/2023 Orders Only [facility] [address] [place] [phone] Marilu Craig NP [address] [facility] [address] [place] [address] Social History Tobacco Use Types Packs/Day Years [...] often do you attend chur ch or temple services? Never 08/17/2023 Do you belong to any clubs o r organizations such as restorationist groups, unions, fraternal or athletic groups, or [...] Recorded Patient Health Questionnaire-2 Score 6 10/04/2023 [facility] of Occupat ional [...] [facility] [address] [place] [address] Nilsa Isidro, WAITER WAITRESS [address] [place] [address] documented as of this encounter Procedures Procedure Name Priority Date/Time Associated Diagnosis Comments XR CHEST LATERAL DECUBITUS Routine 10/09/2023 8:55 AM EDT documented in this encounter Results * XR chest lateral decubitus (10/09/2023 8:55 AM EDT) Anatomical Region Laterality Modality Chest Right Radiographic Anna ging Marilu Craig WAITER WAITRESS IMG XR PROCEDURES Final Result documented in this encounter Visit Diagnoses Not on filedocumented in this encounter Additional Health Concerns Assessment Noted Time PHQ-9 Depression Total Score: 024 3:07 PM EDT documented as of this encounter Care Teams Medicare Insurance Specialist Relationship Specialty Start Date End Date Rylan Andrea MD [address] [place] [address] PCP - General Family Medicine 10/16/22 Rylan Andrea MD [address] [place] [address] PCP - [facility] 05/14/23 Marilu Craig NP [address] [place] [address] Nurse Practitioner Family Medicine 04/03/23 07/17/24 Nilsa Isidro NP [address] [place] [address] Nurse Practitioner Pulmonary Disease 04/03/23 Morenita Gomes, ARTHUR [address] [place] [address] Registered Nurse Family Medicine 06/18/23 12/14/23 Sanjuana Van LSW [address] [place] [address] Cellophane Bag Machine Operator Family Medicine 06/18/23 Cindy Yeager OD [facility] [place] [address] Referring Physician Optometry 10/31/23 Ophelia James, DO [address] [place] [address] Pulmonary Disease 01/10/24 documented as of this encounter
--- OUTSIDE RECORDS SUMMARY | 2025-02-13 12:11 | XMS_ITS | Encounter Summary ---
Author Organization [facility] Address [address] [facility] [place] [address] Care Team Providers Care Patient Service Specialist Name Role Phone Rylan Andrea MD Primary Care Provider Marilu Craig TRIMMING DEPARTMENT BLOCKER Unavailable Nilsa Isidro TRIMMING DEPARTMENT BLOCKER Unavailable Morenita Gomes RN Unavailable [phone] Sanjuana Van VEHICLE DYNAMICS ENGINEER Unavailable Cindy Yeager OD Unavailable Ophelia James DO Unavailable [phone] Rylan Andrea MD Unavailable [phone] Encounter Details Date Type Department Care Team (Late st Contact Info) Description 11/07/2023 Abstract [facility] [address] [place] [address] Rylan Andrea MD [address] [place] [address] Social History Tobacco Use Types Packs/Day Years [...] often do you attend chur ch or cheondoism services? Never 08/17/2023 Do you belong to [...] Recorded Patient Health Questionnaire-2 Score 6 10/04/2023 [facility] of Occupat ional Health - Occupational [...] [facility] [address] [place] [address] Nilsa Isidro, TRIMMING DEPARTMENT BLOCKER [address] [place] [address] documented as of this encounter Visit Diagnoses Not on filedocumented in this encounter Additional Health Concerns Assessment Noted Time PHQ-9 Depression Total Score: 21 024 3:07 PM EDT documented as of this encounter Care Teams Patient Service Specialist Relationship Specialty Start Date End Date Rylan Andrea MD [address] [place] [address] PCP - General Family Medicine 10/16/22 Rylan Andrea MD [address] [place] [address] PCP - [facility] 05/14/23 Marilu Craig NP [address] [place] [id number] Nurse Practitioner Family Medicine 04/03/23 07/17/24 Nilsa Isidro NP [address] [place] [address] Nurse Practitioner Pulmonary Disease 04/03/23 Morenita Gomes, ARTHUR [address] [place] [address] Registered Nurse Family Medicine 06/18/23 12/14/23 Sanjuana Van LSW [address] [place] [address] Criminal Records Technician Family Medicine 06/18/23 Cindy Yeager OD [address] [place] [address] Referring Physician Optometry 10/31/23 Ophelia James DO [address] [place] [address] Pulmonary Disease 01/10/24 documented as of this encounter
--- OUTSIDE RECORDS SUMMARY | 2025-02-13 12:11 | XMS_ITS | Encounter Summary ---
Author Organization [facility] Address [address] [facility] [place] [address] Care Team Providers Care Local Driver Name Role Phone Rylan Andrea MD Primary Care Provider Marilu Craig NP Unavailable Nilsa Isidro BUSINESS SYSTEMS ADVISOR Unavailable [phone] Morenita Gomes RN Unavailable [phone] Sanjuana VanW Unavailable Cindy Yeager OD Unavailable Ophelia James DO Unavailable [phone] Rylan Andrea MD Unavailable [phone] Encounter Details Date Type Department Care Team (Late st Contact Info) Description 10/17/2022 Abstract [facility] [address] [place] [address] Nilsa Isidro BUSINESS SYSTEMS ADVISOR [address] [place] [address] Social History Tobacco Use Types [...] Description 04/13/2025 2:00 PM EST Office Visit [facility] [address] [place] [address] Nilsa Isidro BUSINESS SYSTEMS ADVISOR [address] [place] [address] documented as of this encounter Visit Diagnoses Not on filedocumented in this encounter Care Teams Local Driver Relationship Specialty Start Date End Date Rylan Andrea MD [address] [place] [address] PCP - General Family Medicine 10/16/22 Rylan Andrea MD [address] [place] [address] PCP - [facility] 05/14/23 Marilu Craig NP [address] [place] [phone] Nurse Practitioner Family Medicine 04/03/23 07/17/24 Nilsa Isidro NP [address] [place] [address] Nurse Practitioner Pulmonary Disease 04/03/23 Morenita Gomes, ARTHUR [address] [place] [address] Registered Nurse Family Medicine 06/18/23 12/14/23 Sanjuana Van LSW [address] [place] [address] Rn Registry Family Medicine 06/18/23 Cindy Yeager OD [address] [place] [address] Referring Physician Optometry 10/31/23 Ophelia James DO [address] [place] [address] Pulmonary Disease 01/10/24 documented as of this encounter
--- OUTSIDE RECORDS SUMMARY | 2025-02-13 12:11 | XMS_ITS | Encounter Summary ---
Author Organization [facility] Address [address] [facility] [place] [address] Care Team Providers Care Patch Washer Name Role Phone Rylan Andrea MD Primary Care Provider Nilsa Isidro PARK WARDEN Unavailable Sanjuana Van MINERAL WOOL INSULATION SUPERVISOR Unavailable Cindy Yeager OD Unavailable Ophelia James DO Unavailable [phone] Rylan Andrea MD Unavailable [phone] Encounter Details Date Type Department Care Team (Late st Contact Info) Description 09/17/2024 Abstract [facility] [address] [place] [address] Nilsa Isidro PARK WARDEN [address] [place] [address] Social History Tobacco Use Types [...] Never 11/12/2023 How often do you attend pentecostalism or mosque serv ices? Never 11/12/2023 Do you belong to any clubs o r organizations such as pentecostalism groups, unions, fraternal or athletic groups, or [...] Recorded Patient Health Questionnaire-2 Score 6 09/15/2024 [facility] of Occupat ional Health - Occupational Stress [...] place to sleep or slept in a fci (including now)? Yes 08/17/2023 Housing Stability Vital [...] were you homeless or living in a fci (including now)? No 11/12/2023 Sex and Gender [...] [facility] [address] [place] [address] Nilsa Isidro, PARK WARDEN [address] [place] [address] documented as of this encounter Visit Diagnoses Not on filedocumented in this encounter Additional Health Concerns Assessment Noted Time PHQ-9 Depression Total Score: 18 025 2:05 PM EDT documented as of this encounter Care Teams Patch Washer Relationship Specialty Start Date End Date Rylan Andrea MD [address] [place] [address] PCP - General Family Medicine 10/16/22 Rylan Andrea MD [address] [place] [address] PCP - [facility] 05/14/23 Nilsa Isidro, ELLE [address] [place] [address] Nurse Practitioner Pulmonary Disease 04/03/23 Sanjuana Van, MINERAL WOOL INSULATION SUPERVISOR [address] [place] [address] Supervisor Aluminum Boat Assembly Family Medicine 06/18/23 Cindy Yeager OD [address] [place] [address] Referring Physician Optometry 10/31/23 Ophelia James DO [address] [place] [address] Pulmonary Disease 01/10/24 documented as of this encounter
--- OUTSIDE RECORDS SUMMARY | 2025-02-13 12:11 | XMS_ITS | Encounter Summary ---
Author Organization [facility] Address [address] [facility] [place] [address] Care Team Providers Care Accident Report Clerk Name Role Phone Rylan Andrea MD Primary Care Provider [phone] Marilu Craig NP Unavailable Nilsa Isidro COMMERCIAL SEWING INSTRUCTOR Unavailable [phone] Morenita Gomes RN Unavailable [phone] Sanjuana Van VOICE COACH Unavailable Cindy Yeager OD Unavailable Ophelia James DO Unavailable [phone] Rylan Andrea MD Unavailable [phone] Encounter Details Date Type Department Care Team (Late st Contact Info) Description 07/07/2023 [facility] [address] [place] [address] Marilu Craig NP [address] [facility] [address] [place] [address] Social History Tobacco Use Types Packs/Day Years [...] [facility] [address] [place] [phone] Nilsa Isidro, ELLE [address] [place] [address] documented as of this encounter Visit Diagnoses Not on filedocumented in this encounter Additional Health Concerns Assessment Noted Time PHQ-9 Depression Total Score: 24 023 1:46 PM EST documented as of this encounter Care Teams Accident Report Clerk Relationship Specialty Start Date End Date Rylan Andrea MD [address] [place] [address] PCP - General Family Medicine 10/16/22 Rylan Andrea MD [address] [place] [address] PCP - [facility] 05/14/23 Marilu Craig NP [address] [place] [address] Nurse Practitioner Family Medicine 04/03/23 07/17/24 Nilsa Isidro NP [address] [place] [address] Nurse Practitioner Pulmonary Disease 04/03/23 Morenita Gomes, RN [address] [place] [address] Registered Nurse Family Medicine 06/18/23 12/14/23 Sanjuana Van LSW [address] [place] [address] Notch Grinder Family Medicine 06/18/23 Cindy Yeager OD [address] [place] [address] Referring Physician Optometry 10/31/23 Ophelia James, [address] [place] [address] Pulmonary Disease 01/10/24 documented as of this encounter
--- OUTSIDE RECORDS SUMMARY | 2025-02-13 12:11 | XMS_ITS | Encounter Summary ---
Author Organization [facility] Address [address] [facility] [place] [address] Care Team Providers Care Felt Carbonizer Name Role Phone Rylan Andrea MD Primary Care Provider [phone] Marilu Craig NP Unavailable Nilsa Isidro SCHOOL PHOTOGRAPH EDITOR Unavailable Morenita Gomes RN Unavailable [phone] Sanjuana Van WET END TESTER Unavailable Cindy Yeager OD Unavailable Ophelia James DO Unavailable [phone] Rylan Andrea MD Unavailable [phone] Encounter Details Date Type Department Care Team (Late st Contact Info) Description 10/18/2022 External Result Encounter [facility] External Department Unsolicited Nilsa Isidro, SCHOOL PHOTOGRAPH EDITOR [address] [place] [address] Social History Tobacco Use Types Packs/Day Years [...] [facility] [address] [place] [address] Nilsa Isidro, SCHOOL PHOTOGRAPH EDITOR [address] [place] [address] documented as of this encounter [...] 5:27 PM Dictation Location: RADIO-PC-14 Transcribed By: MARU 10/18/221726 Dictated By: Ashley Velasquez MD 10/18/22 170 Signed By: <Electronically signed by MD Ashley Velasquez in OV> 10/18/22 1727 Narrative 10/19/2022 6:52 AM EDT [facility] Main [address] [address] XRay Report Signed Patient: Kirill Echols MR#: [id number] : 1965 Acct:[id number] Age/Sex: 57 / M ADM Date: 10/18/22 Loc: XD Room: Type: [facility] Attending Dr: Nilsa Isidro SCHOOL PHOTOGRAPH EDITOR-C Copies to: Nilsa Isidro CNP Ordering Provider: Nilsa Isidro CNP Date of Service: 10/18/22 XR/XR chest 2V*: RO6.09 PA AND LATERAL CHEST: CLINICAL HISTORY: Shortness of breath and chest pain. COMPARISON: 06/17/2022 There is a left Bulfym-f-Jjse catheter. A right basilar chest tube is [...] 2V* Procedure Note Radiology, Radiologist, - 10/19/2022 [facility] [address] [address] XRay Report Signed Patient: Kirill Echols NMR#: [id number] : 1965Acct:[id number] Age/Sex: 57 / MADM Date: 10/18/22 Loc: XD Room:Type: [facility] Attending Dr: Nilsa Isidro SCHOOL PHOTOGRAPH EDITOR-C Copies to: Nilsa Isidro CNP Ordering Provider: Nilsa Isidro CNP Date of Service: 10/18/22 XR/XR chest 2V*: RO6.09 PA AND LATERAL CHEST: CLINICAL HISTORY: Shortness of breath and chest pain. COMPARISON: 06/17/2022 There is a left Mjiygg-a-Jnqs catheter. A right basilar chest tube isagain [...] Ashley Velasquez M.D.10/18/2022 5:27 PM Dictation Location: [place] [address] Transcribed By: [facility] 10/18/22 172 Dictated By: Ashley Velasquez MD 10/18/22 1707 Signed By: <Electronically signed by MD Ashley Velasquez in OV> 10/18/22 1727 us Nilsa Isidro SCHOOL PHOTOGRAPH EDITOR IMG XR PROCEDURES Final Resul t documented in this encounter Visit Diagnoses Not on filedocumented in this encounter Care Teams Felt Carbonizer Relationship Specialty Start Date End Date Rylan Andrea MD [address] [place] [address] PCP - General Family Medicine 10/16/22 Rylan Andrea MD [address] [place] [phone] PCP - [facility] 05/14/23 Marilu Craig, SCHOOL PHOTOGRAPH EDITOR [address] [place] [address] Nurse Practitioner Family Medicine 04/03/23 07/17/24 Nilsa Isidro, SCHOOL PHOTOGRAPH EDITOR [address] [place] [phone] Nurse Practitioner Pulmonary Disease 04/03/23 Morenita Gomes, RN [address] [place] [phone] Registered Nurse Family Medicine 06/18/23 12/14/23 Sanjuana Van LSW [address] [place] [phone] Market Development Analyst Family Medicine 06/18/23 Cindy Yeager OD [facility] [place] [address] Referring Physician Optometry 10/31/23 Ophelia James DO [address] [place] [address] Pulmonary Disease 01/10/24 documented as of this encounter
--- OUTSIDE RECORDS SUMMARY | 2025-02-13 12:11 | XMS_ITS | Encounter Summary ---
Author Organization [email or web address] Address [id number] [address] [place] [address] Care Team Providers Care Recovery Unit Operator Name Role Phone Rylan Andrea MD Primary Care Provider [phone] Reason for Referral * Diagnostic Imaging (Routine) - Closed Specialty Diagnoses / Procedures Referred By En rodriguez Referred To Contact Radiology Diagnoses Pain Procedures CT abdomen and pelvis with contrast [facility] [address] [place] [address] Phone: tel: fax: Referral ID Status Reason Start Date Expiration Date Visits Re quested Visits Authorized [id number] Closed 09/11/2023 09/10/2024 1 1 Encounter Details Date Type Department Care Team (Late st Contact Info) Description 09/11/2023 Orders Only [facility] [address] [place] [address] Transcribe, Orders Support User Pain (Primary Dx) Social History Tobacco Use Types Packs/Day Years [...] on file documented as of this encounter Results * X-ray abdomen ap 1 view (09/08/2023 6:05 AM EDT) us Scanning Provider External IMG DIAGNOSTIC IMAGIN G ORDERABLES Final Result Performing Organization Address [facility] de Phone Number MANUALLY TRANSCRIBED RESULTS * X-ray abdomen ap 1 view (09/07/2023 9:10 AM EDT) us Scanning Provider External IMG DIAGNOSTIC IMAGIN G ORDERABLES Final Result Performing Organization Address [facility] de Phone Number MANUALLY TRANSCRIBED RESULTS * X-ray abdomen ap 1 view (09/06/2023 1:30 PM EDT) us Scanning Provider External IMG DIAGNOSTIC IMAGIN G ORDERABLES Final Result Performing Organization Address [facility] Phone Number MANUALLY TRANSCRIBED RESULTS * CT abdomen and pelvis with contrast (09/06/2023 12:00 PM EDT) us Scanning Provider External IMG CT ORDERABLES Fin al Result Performing Organization Address [facility] de Phone Number MANUALLY TRANSCRIBED RESULTS * X-ray abdomen complete series with pa chest (09/06/2023 9:40 AM EDT) us Scanning Provider External IMG DIAGNOSTIC IMAGIN G ORDERABLES Final Result Performing Organization Address [facility] de Phone Number MANUALLY TRANSCRIBED RESULTS documented in this encounter Visit Diagnoses Diagnosis Pain- Primary Generalized pain documented in this encounter Care Teams Recovery Unit Operator Relationship Specialty Start Date End Date Rylan Andrea MD [address] [place] [address] PCP - General 11/09/17 documented as of this encounter
--- OUTSIDE RECORDS SUMMARY | 2025-02-13 12:11 | XMS_ITS | Encounter Summary ---
Author Organization [facility] Address [address] [place] [address] Care Team Providers Care Servomechanism Designer Name Role Phone Danna Andrea MD Primary Care Provider [phone] Marilu Craig SAFETY INVESTIGATOR/CAUSE ANALYST Unavailable Nilsa Isidro SAFETY INVESTIGATOR/CAUSE ANALYST Unavailable [phone] Morenita Gomes RN Unavailable [phone] Sanjuana Van DETECTIVE BUREAU CHIEF Unavailable Cindy Yeager OD Unavailable Ophelia James DO Unavailable [phone] Danna Andrea MD Unavailable [phone] Encounter Details Date Type Department Care [...] How often do you attend chur or christianity services? Never 08/17/2023 Do you [...] Recorded Patient Health Questionnaire-2 Score 6 10/04/2023 [facility] of Occupat ional Health - Occupational Stress [...] [facility] [address] [place] [address] Nilsa Isidro NP [address] [place] [address] documented as of this encounter Procedures Procedure Name Priority Date/Time Associated Diagnosis Comments XR CHEST 3V PA/LAT/DECUB 10/10/2023 7:40 AM EDT documented in this encounter Results * XR CHEST 3V PA/LAT/DECUB (10/10/2023 7:40 AM EDT) Anatomical Region Laterality Modality Radiographic Anna ging 10/10/2023 7:40 AM EDT Narrative 10/10/2023 7:43 AM EDT [address] [address] XRay Report Signed Patient: KIRILL ECHOLS MR#: [id number] : 1965 Acct:[id number] Age/Sex: 58 / M ADM Date: 10/09/23 Loc: RAD Attending Dr: Non-Staff Physician MSofia Ordering Physician: PhysicianNon-Staff Jamaal Date of Service: 10/09/23 Procedure(s): XR chest w decubitus Accession Number(s): [id number] cc: DANNA ANDREA ; Physician,Non-Staff Jamaal [address] [address] Patient Name: KIRILL ECHOLS MRN: [facility]:[id number] date: 1965 Sex: M Assigned Patient Location: [facility] Current Patient Location: Accession/Order Number: [id number] Exam Date: 10/09/2023 15:25 Report Date: 10/10/2023 [...] Signed By: 10/10/23 0743 DD/ 9 TD/TT: Media Supervisor: Procedure Note Radiology, Radiologist, - 10/11/[address] [address] XRay Report Signed Patient: KIRILL ECHOLS NMR#: [id number] : 1965Acct:[id number] Age/Sex: 58 / MADM Date: 10/09/23 Loc: RAD Attending Dr: Non-Staff Physician Jamaal Ordering Physician: PhysicianGerardoStaff Jamaal Date of Service: 10/09/23 Procedure(s): XR chest w decubitus Accession Number(s): [id number] cc: DANNA ANDREA ; PhysicianJer M.D. The [address] [address] Patient Name: KIRILL ECHOLS MRN: [id number] date: 1965 Sex: M Assigned Patient Location: [facility] Current Patient Location: Accession/Order Number: [id number] Exam Date: 10/09/2023 15:25 Report Date: 10/10/2023 [...] 07:40 Dictated By: Marce Gould M.D. Signed By:10/10/23 0743 DD/ TD/TT: Media Supervisor: Generic External Data Provider IMG XR PROCEDURES Final Result documented in this encounter Visit Diagnoses Not on filedocumented in this encounter Additional Health Concerns Assessment Noted Time PHQ-9 Depression Total Score: 21 024 3:07 PM EDT documented as of this encounter Care Teams Servomechanism Designer Relationship Specialty Start Date End Date Danna Andrea MD [address] [place] [address] PCP - General Family Medicine 10/16/22 Danna Andrea MD [address] [place] [address] PCP - [facility] 05/14/23 Marilu Craig NP [address] [place] [address] Nurse Practitioner Family Medicine 04/03/23 07/17/24 Nilsa Isidro NP [address] [place] [address] Nurse Practitioner Pulmonary Disease 04/03/23 Morenita Gomes, RN [address] [place] [address] Registered Nurse Family Medicine 06/18/23 12/14/23 Sanjuana Van LSW [address] [place] [address] Corrugator Helper Family Medicine 06/18/23 Cindy Yeager OD [address] [place] [address] Referring Physician Optometry 10/31/23 Ophelia James DO [address] [place] [address] Pulmonary Disease 01/10/24 documented as of this encounter
--- OUTSIDE RECORDS SUMMARY | 2025-02-13 12:11 | XMS_ITS | Clinical Summary ---
Author Organization [facility] Address [address] [place] [address] Care Team Providers Care Engine Buildup Mechanic Name Role Phone Unavailable Primary Care Provider [...] of 3 - 19+ 3-dose series) 1984 Adult Tetanus 1987 Zoster Vaccines (1 [...] on patient's age to complete this topic Pneumococcal Vaccine: Pediat rics (0 to 5 Years) and At-Risk Patients (6 to 64 Years) Aged Out No longer eligible b ased on patient's age to complete this topic Rotavirus Vaccines Aged Out No longer eligible based on patient's age to complete this topic Insurance [facility] MEDICARE
--- OUTSIDE RECORDS SUMMARY | 2025-02-13 12:11 | XMS_ITS | Clinical Summary ---
Author Organization [facility] Address [address] [place] [address] Care Team Providers Care Cleaner And Preparer Name Role Phone Unavailable Primary Care Provider [...]
--- OUTSIDE RECORDS SUMMARY | 2025-02-13 12:11 | XMS_ITS | Encounter Summary ---
Author Organization [facility] Address [address] [facility] [place] [address] Care Team Providers Care Produce Buyer Name Role Phone Rylan Andrea MD Primary Care Provider [phone] Marilu Craig NP Unavailable Nilsa Isidro PROCUREMENT SERVICES MANAGER Unavailable Morenita Gomes RN Unavailable [phone] Sanjuana Van STAFF AIR DEFENSE OFFICER Unavailable Cindy Yeager OD Unavailable Ophelia James DO Unavailable [phone] Rylan Andrea MD Unavailable [phone] Encounter Details Date Type Department Care Team (Late st Contact Info) Description 11/08/2023 Orders Only [facility] [address] [place] [phone] Marilu Craig NP [address] [facility] [address] [place] [address] Social History Tobacco Use Types Packs/Day Years [...] How often do you attend christian or adventism serv ices? Never 11/12/2023 Do you belong [...] Recorded Patient Health Questionnaire-2 Score 4 11/12/2023 [facility] of Occupat ional Health - Occupational Stress [...] any time in the past 12 m [facility], were you homeless or living [...] Description 04/13/2025 2:00 PM EST Office Visit [facility] [address] [place] [address] Nilsa Isidro NP [address] [place] [address] documented as of this encounter Procedures Procedure Name Priority Date/Time Associated Diagnosis Comments CT ABDOMEN/PELVIS WITH CONTRAST Routine 11/06/2023 9:10 AM EDT documented in this encounter Results * CT ABDOMEN/PELVIS WITH CONTRAST (11/06/2023 9:10 AM EDT) Anatomical Region Laterality Modality Radiographic Anna ging Marilu Craig PROCUREMENT SERVICES MANAGER IMG XR PROCEDURES Final Result documented in this encounter Visit Diagnoses Not on filedocumented in this encounter Additional Health Concerns Assessment Noted Time PHQ-9 Depression Total Score: 21 024 3:07 PM EDT documented as of this encounter Care Teams Produce Buyer Relationship Specialty Start Date End Date Rylan Andrea MD [address] [place] [address] PCP - General Family Medicine 10/16/22 Rylan Andrea MD [address] [place] [address] [address] - [facility] 05/14/23 Marilu Craig NP [address] [place] [address] Nurse Practitioner Family Medicine 04/03/23 07/17/24 Nilsa Isidro NP [address] [place] [address] Nurse Practitioner Pulmonary Disease 04/03/23 Morenita Gomes, RN [address] [place] [address] Registered Nurse Family Medicine 06/18/23 12/14/23 Sanjuana Van LSW [address] [place] [address] Pct Family Medicine 06/18/23 Cindy Yeager OD [address] [place] [address] Referring Physician Optometry 10/31/23 Ophelia James DO [address] [place] [address] Pulmonary Disease 01/10/24 documented as of this encounter
--- OUTSIDE RECORDS SUMMARY | 2025-02-13 12:11 | XMS_ITS | Encounter Summary ---
Author Organization [facility] Address [address] [place] [address] Care Team Providers Care Hotel Valet Attendant Name Role Phone Rylan Andrea MD Primary Care Provider Marilu Craig VEHICLE OPERATOR TECHNICIAN Unavailable Nilsa Isidro VEHICLE OPERATOR TECHNICIAN Unavailable Morenita Gomes RN Unavailable [phone] Sanjuana Van AIRCRAFT AIR CONDITIONING MECHANIC Unavailable Cindy Yeager OD Unavailable Ophelia James DO Unavailable [phone] Rylan Andrea MD Unavailable [phone] Encounter Details Date Type Department Care Team (Late st Contact Info) Description 06/25/2023 External Result Encounter [facility] External Department Unsolicited Manuel Varma, DO [address] [place] [address] Social History Tobacco Use Types Packs/Day Years [...] [facility] [address] [place] [address] Nilsa Isidro, ELLE [address] [place] [address] documented as of this encounter Procedures Procedure [...] Ellison Jr., D.O.06/25/2023 10:28 AM Dictation Location: [place] [address] Transcribed By: [facility] 06/25/23 1028 Dictated By: Victorino Ellison Jr, DO 06/25/23 1017 Signed By: <Electronically signed by Victorino Ellison Jr, DO in OV> 06/25/23 1028 Narrative 06/25/2023 10:31 AM EST [facility] Main [address] [address] Nuclear Medicine Report Signed Patient: Kirill Echols MR#: [id number] : 1965 Acct:[id number] Age/Sex: 58 / M ADM Date: 06/25/23 [...] sb-mt Procedure Note Radiology, Radiologist, - 06/25/2023 [facility] [place] [address] Nuclear Medicine Report Signed Patient: Kirill Echols [facility]#: [id number] : 1965Acct:[id number] Age/Sex: 58 / MADM Date: 06/25/23 Loc: [...] Ellison Jr., D.OSesar06/25/2023 10:28 AM Dictation Location: [place] [address] Transcribed By: [facility] 06/25/23 1028 Dictated By: Victorino Ellison [...] documented as of this encounter Care Teams Hotel Valet Attendant Relationship Specialty Start Date End Date Rylan Andrea MD [address] [place] [address] PCP - General Family Medicine 10/16/22 Rylan Andrea MD [address] [place] [address] PCP - [place] 05/14/23 Marilu Craig NP [address] [place] [address] Nurse Practitioner Family Medicine 04/03/23 07/17/24 Nilsa Isidro NP [address] [place] [address] Nurse Practitioner Pulmonary Disease 04/03/23 Morenita Gomes, RN [address] [place] [address] Registered Nurse Family Medicine 06/18/23 12/14/23 Sanjuana Van LSW [address] [place] [address] Watch Mechanic Family Medicine 06/18/23 Cindy Yeager OD [address] [place] [address] Referring Physician Optometry 10/31/23 Ophelia James DO [address] [place] [address] Pulmonary Disease 01/10/24 documented as of this encounter
--- OUTSIDE RECORDS SUMMARY | 2025-02-13 12:11 | XMS_ITS | Encounter Summary ---
Author Organization [facility] Address [address] [facility] [place] [address] Care Team Providers Care Hydrometer Calibrator Name Role Phone Rylan Andrea MD Primary Care Provider Marilu Craig NP Unavailable Nilsa Isidro HOME ECONOMICS EXTENSION WORKER Unavailable Sanjuana VanW Unavailable Cindy Yeager OD Unavailable Ophelia James DO Unavailable [phone] Rylan Andrea MD Unavailable [phone] Encounter Details Date Type Department Care Team (Late st Contact Info) Description 07/14/2024 Abstract [facility] [address] [place] [address] Marilu Craig NP [address] [facility] [address] [place] [address] Social History Tobacco Use Types Packs/Day Years [...] Never 11/12/2023 How often do you attend evangelical or shinto serv ices? Never 11/12/2023 Do you belong to any clubs o r organizations such as evangelical groups, unions, fraternal or athletic groups, or [...] Recorded Patient Health Questionnaire-2 Score 6 06/17/2024 [facility] of Occupat ional Health - Occupational Stress [...] in the past 12 m [facility], were you homeless or [...] [facility] [address] [place] [address] Nilsa Isidro NP [address] [place] [address] documented as of this encounter Visit Diagnoses Not on filedocumented in this encounter Additional Health Concerns Assessment Noted Time PHQ-9 Depression Total Score: 15 025 2:48 PM EST documented as of this encounter Care Teams Hydrometer Calibrator Relationship Specialty Start Date End Date Rylan Andrea MD [address] [place] [address] PCP - General Family Medicine 10/16/22 Rylan Andrea MD [address] [place] [id number] PCP - [facility] 05/14/23 Marilu Craig NP [address] [place] [address] Nurse Practitioner Family Medicine 04/03/23 07/17/24 Nilsa Isidro NP [address] [place] [address] Nurse Practitioner Pulmonary Disease 04/03/23 Sanjuana Van, APOLINAR [address] [place] [address] Squaring Shear Operator Family Medicine 06/18/23 Cindy Yeager OD [address] [place] [address] Referring Physician Optometry 10/31/23 Ophelia James DO [address] [place] [address] Pulmonary Disease 01/10/24 documented as of this encounter
--- OUTSIDE RECORDS SUMMARY | 2025-02-13 12:11 | XMS_ITS | Encounter Summary ---
Author Organization [facility] Address [address] [facility] [place] [address] Care Team Providers Care Lead Manufacturing Engineering Tech Name Role Phone Rylan Andrea MD Primary Care Provider Marilu Craig WEDDING MAKEUP ARTIST Unavailable Nilsa Isidro WEDDING MAKEUP ARTIST Unavailable Morenita Gomes RN Unavailable [phone] Sanjuana Van PRIOR AUTHORIZATION NURSE Unavailable Cindy Yeager OD Unavailable Ophelia James DO Unavailable [phone] Rylan Andrea MD Unavailable [phone] Encounter Details Date Type Department Care Team (Late st Contact Info) Description 10/09/2023 Abstract [facility] [address] [place] [address] Rylan Andrea MD [address] [place] [address] Social History Tobacco Use Types Packs/Day Years [...] often do you attend chur ch or episcopal services? Never 08/17/2023 Do you belong to [...] Recorded Patient Health Questionnaire-2 Score 6 10/04/2023 [facility] of Occupat ional Health - Occupational [...] [facility] [address] [place] [address] Nilsa Isidro, WEDDING MAKEUP ARTIST [address] [place] [address] documented as of this encounter Visit Diagnoses Not on filedocumented in this encounter Additional Health Concerns Assessment Noted Time PHQ-9 Depression Total Score: 21 024 3:07 PM EDT documented as of this encounter Care Teams Lead Manufacturing Engineering Tech Relationship Specialty Start Date End Date Rylan Andrea MD [address] [place] [address] PCP - General Family Medicine 10/16/22 Rylan Andrea MD [address] [place] [address] PCP - [facility] 05/14/23 Marilu Craig NP [address] [place] [phone] Nurse Practitioner Family Medicine 04/03/23 07/17/24 Nilsa Isidro NP [address] [place] [address] Nurse Practitioner Pulmonary Disease 04/03/23 Morenita Gomes, ARTHUR [address] [place] [address] Registered Nurse Family Medicine 06/18/23 12/14/23 Sanjuana Van LSW [address] [place] [address] Street And Building Decorator Family Medicine 06/18/23 Cindy Yeager OD [address] [place] [address] Referring Physician Optometry 10/31/23 Ophelia James DO [address] [place] [address] Pulmonary Disease 01/10/24 documented as of this encounter
--- OUTSIDE RECORDS SUMMARY | 2025-02-13 12:11 | XMS_ITS | Encounter Summary ---
Author Organization [facility] Address [address] [facility] [place] [address] Care Team Providers Care Reroller Hand Name Role Phone Rylan Andrea MD Primary Care Provider [phone] Marilu Craig NP Unavailable Nilsa Isidro TELETYPESETTER OPERATOR Unavailable Morenita Gomes RN Unavailable [phone] Sanjuana Van DIGITAL ACCOUNT EXECUTIVE Unavailable Cindy Yeager OD Unavailable Ophelia James DO Unavailable [phone] Rylan Andrea MD Unavailable [phone] Encounter Details Date Type Department Care Team (Late st Contact Info) Description 11/07/2023 Orders Only [facility] [address] [place] [address] Marilu Craig NP [address] [facility] [address] [place] [address] Social History Tobacco Use Types Packs/Day Years [...] often do you attend chur ch or quaker services? Never 08/17/2023 Do you belong to [...] Recorded Patient Health Questionnaire-2 Score 6 10/04/2023 [facility] of Occupat ional Health - [...] in a half-way (including now)? Yes 08/17/2023 Sex and Gender [...] [facility] [address] [place] [address] Nilsa Isidro, TELETYPESETTER OPERATOR [address] [place] [address] documented as of this encounter Procedures Procedure [...] Laterality Modality Abdomen Radiographic Anna ging us Marilu Craig NP IMG XR PROCEDURES Final Result * CT ABDOMEN & PELVIS WO (11/06/2023 10:51 AM EDT) Anatomical Region Laterality Modality Radiographic Anna ging us Marilu Craig TELETYPESETTER OPERATOR IMG XR PROCEDURES Final Result * XR chest 1 view (11/06/2023 10:20 AM EDT) Anatomical Region Laterality Modality Chest Radiographic Anna ging Marilu Craig NP IMG XR PROCEDURES Final Result documented in this encounter Visit Diagnoses Not on filedocumented in this encounter Additional Health Concerns Assessment Noted Time PHQ-9 Depression Total Score: 21 024 3:07 PM EDT documented as of this encounter Care Teams Reroller Hand Relationship Specialty Start Date End Date Rylan Andrea MD [address] [place] [address] PCP - General Family Medicine 10/16/22 Rylan Andrea MD [address] [place] [address] PCP - [facility] 05/14/23 Marilu Craig NP [address] [place] [address] Nurse Practitioner Family Medicine 04/03/23 07/17/24 Nilsa Isidro NP [address] [place] [address] Nurse Practitioner Pulmonary Disease 04/03/23 Morenita Gomes, RN [address] [place] [address] Registered Nurse Family Medicine 06/18/23 12/14/23 Sanjuana Van LSW [address] [place] [address] Regulatory Affairs Consultant Family Medicine 06/18/23 Cindy Yeager OD [address] [place] [address] Referring Physician Optometry 10/31/23 Ophelia James DO [address] [place] [address] Pulmonary Disease 01/10/24 documented as of this encounter
--- OUTSIDE RECORDS SUMMARY | 2025-02-13 12:11 | XMS_ITS | Clinical Summary ---
Author Organization [facility] Address [address] [place] [address] Care Team Providers Care Architectural Drafting Instructor Name Role Phone Rylan Andrea MD Primary Care Provider Nilsa Isidro GENERAL MANAGER LAND DEPARTMENT Unavailable [phone] Sanjuana Van SUPERVISOR ACOUSTICAL TILE CARPENTERS Unavailable Cindy Yeager OD Unavailable Ophelia James DO Unavailable [phone] Rylan Andrea MD Unavailable [phone] Allergies Active Allergy Reactions Criticality Noted Date Comments Chlordiazepoxide Swelling High 06/29/2023 Edema Lisinopril Swelling High 09/25/2022 Swelling of Lip/Tongue/Throat Sertraline Swelling High 09/25/2022 Swelling of Lip/Tongue/Throat Medications acetaminophen (Tylenol) 325 MG tablet 650 mg Orally Q 8 hrs as needed 0 Active Aspirin Low Dose 81 MG EC tablet Take 81 mg by mouth in the morning. as directed. 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 Take before meals. 30 tablet 5 5 07/13/19 26 Active Fluticasone-Umec lidin-Vilant (Trelegy Ellipta) 100-62.5-25 MCG/ACT aerosol powderIndication s:Chronic obstructive pulmonary disease, unspecified COPD type ([facility]) Inhale 1 puff Daily 60 each 5 Active diclofenac (Voltaren) 75 MG EC tablet Take 75 mg by mouth in the morning and 75 mg before bedtime. Do not crush, chew, or split. Given by ER . Active orphenadrine (Norflex) 100 MG 12 hr tablet Take 100 mg by mouth 2 (two) times a day as needed for muscle spasms Do not crush, chew, or split. Given by ER Active amoxicillin (Amoxil) 500 MG tabletIndication s:Acute non-recurrent frontal sinusitis Take 1 tablet (500 mg) by mouth in the morning and 1 tablet (500 mg) before bedtime. Do all this for 10 days. 20 tablet 5 01/24/20 25 Active Problems Problem Noted Date Diagnosed Date Age-related nuclear cataract of both eyes 2023 Glaucoma suspect of both eyes 10/31/2023 Refusal of statin medication by patient 09/10/19 24 Major depressive disorder, single episode, unspe cified 10/19/2022 Pancreatitis ([facility]) 09/25/2022 Abnormal results of liver function studies [...] Encounters Date Type Department Care Team Description 02/03/2025 11:00 AM EDT Office Visit [facility] [address] [place] [address] Nilsa Isidro NP Alcoholic liver disease, unspecified (HHS-HCC) (Primary Dx); Smoker; Elevated liver enzymes; Alcohol use disorder, mild, abuse; Right upper quadrant pain; Right atrial enlargement; Right ventricular dilation; Shortness of breath 02/03/2025 Bamboo flowsheet [facility] [address] [place] [address] Nilsa Isidro NP 02/03/2025 Travel 01/26/2025 [facility] [address] 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 ; Chronic obstructive pulmonary disease, unspecified COPD type (HCC); Small cell lung cancer in adult (HCC); History of primary malignant neoplasm of bronchus; Shortness of breath; Routine general medical examination at health care facility 01/13/2025 Bamboo flowsheet [facility] [address] [place] [address] Nilsa Isidro NP 01/13/2025 Travel 01/06/2025 Refill [facility] [address] [place] [address] Jumana Orellana MA Primary insomnia; Current moderate episode of major depressive disorder without prior episode (HCC) 12/26/2024 Patient Outreach [place] [address] [place] [address] Sanjuana Van LSW 12/06/2024 Refill [facility] [address] [place] [address] Nilas Isidro NP Anxiety; Moderate episode of recurrent major depressive disorder (HCC); Severe recurrent major 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 Never 11/12/2023 Do you belong to any clubs o r organizations such as shinto groups, unions, fraternal or athletic groups, or [...] Recorded Patient Health Questionnaire-2 Score 6 01/13/2025 [facility]at ional [facility] - Occupational Stress Questionnaire Answer Date Recorded [...] No 11/12/2023 Housing Stability Vital Sign Answer Adniel e Recorded In the last 12 months, [...] any time in the past 12 m [facility], were you homeless or living in [...] Mass Index 20.21 02/03/2025 10:41 AM EDT Plan of Treatment Upcoming Encounters Date Type Department Care Team (Late st Contact Info) Description 04/13/2025 2:00 PM EST Office Visit [facility] [address] [place] [address] Nilsa Isidro, GENERAL MANAGER LAND DEPARTMENT [address] [place] [address] Health Maintenance Due Date Last Done Comments CT Colonography 1965 FIT-DNA 1965 FIT 1965 FOBT 1965 Sigmoidoscopy 1965 Influenza Vaccine (#1) 2025 0, 03/15/2020, 02/13/2020 Postponed from 01/12/2025 (Patient Refused) Medicare Annual Wellness (AWV) 01/13/2026 01/13/2025, 01/21/2024 Colonoscopy 02/17/2034 02/18/2024, 10/24/2017 Colorectal Cancer Screening 02/17/2034 Procedures Procedure Name Priority Date/Time Associated Diagnosis Comments XR CHEST 1 VIEW Routine 01/24/2025 7:[address] SCAN : ANGIOGRAM Routine 01/24/2025 7 :11 PM EDT ALL THYROXINE (T4) FREE Routine 11/26/2024 2:23 PM EDT ALL THYROID STIM HORMONE Routine 11/26/2024 2:23 PM EDT ALL T3 FREE Routine 11/26/2024 2:23 PM EDT COLONOSCOPY DIAGNOSTIC Routine 02/18/2024 2:34 PM EDT from Last 3 Months or Most Recently Relevant to Health Maintenance Results * XR chest 1 view (01/24/2025 7:16 PM EDT) Anatomical Region Laterality Modality Chest Radiographic Anna ging Nilsa Isidro NP IMG XR PROCEDURES Final Resul t * CT SCAN : ANGIOGRAM (01/24/2025 7:11 PM EDT) Anatomical Region Laterality Modality Radiographic Anna ging us Nilsa Isidro NP IMG XR PROCEDURES Final Resul t * ALL THYROXINE (T4) FREE (11/26/2024 2:23 PM EDT) FREE T4 0.76 0.76 - 1.46 ng/dL [facility] 11/26/2024 2:23 PM EDT 11/26/2024 2:24 PM EDT Narrative [facility] - 11/26/2024 3:52 PM EDT Generic External Data Provider [facility] F inal Result Performing Organization Address City/[facility] Co de Phone Number [facility] TB * ALL THYROID STIM HORMONE (11/26/2024 2:23 PM EDT) THYROID STIMULATING HORMONE 2.572 0.358 - 3.740 uIU/mL [facility] 11/26/2024 2:23 PM EDT 11/26/2024 2:24 PM EDT Narrative [facility] - 11/26/2024 3:26 PM EDT Generic External Data Provider CLINISYNC F inal Result Performing Organization Address [facility] Co de Phone Number [facility] TB * (ABNORMAL) ALL T3 FREE (11/26/2024 2:23 PM EDT) FREE T3 2.10(L) 2.18 - 3.98 pg/mL [facility] 11/26/2024 2:23 PM EDT 11/26/2024 2:24 PM EDT Narrative [facility] - 11/26/2024 3:26 PM EDT Generic External Data Provider CLIN[facility]NC F ina Result Performing Organization Address [facility] de Phone Number [facility] * COLONOSCOPY DIAGNOSTIC (02/18/2024 2:34 PM EDT) Anatomical Region Laterality Modality Radiographic Anna ging Marilu Craig GENERAL MANAGER LAND DEPARTMENT IMG XR PROCEDURES Final Result from Last 3 Months or Most Recently Relevant to Health Maintenance Insurance [address] [place] [id number] MEDICAID [place] UNITED [employer] MEDICARE [facility] Care Teams Architectural Drafting Instructor Relationship Specialty Start Date End Date Rylan Andrea MD [address] [place] [address] PCP - General Family Medicine 10/16/22 Rylan Andrea MD [address] [place] [address] PCP - [facility] 05/14/23 Nilsa Isidro NP [address] [place] [address] Nurse Practitioner Pulmonary Disease 04/03/23 Sanjuana Van, SUPERVISOR ACOUSTICAL TILE CARPENTERS [address] [place] [address] Environmental Health And Safety Manager Family Medicine 06/18/23 Cindy Yeager OD [address] [place] [address] Referring Physician Optometry 10/31/23 Ophelia James, [address] [place] [address] Pulmonary Disease 01/10/24
--- OUTSIDE RECORDS SUMMARY | 2025-02-13 12:11 | XMS_ITS | Encounter Summary ---
Author Organization [facility] Address [address] [facility] [place] [address] Care Team Providers Care Gericare Aide Teacher Name Role Phone Rylan Andrea MD Primary Care Provider Marilu Craig DRIVER'S LICENSE REVIEWING OFFICER Unavailable Nilsa Isidro DRIVER'S LICENSE REVIEWING OFFICER Unavailable Morenita Gomes RN Unavailable [phone] Sanjuana Van AUTOMOTIVE BRAKE TECHNICIAN Unavailable Cindy Yeager OD Unavailable Ophelia James DO Unavailable [phone] Rylan Andrea MD Unavailable [phone] Encounter Details Date Type Department Care Team (Late st Contact Info) Description 11/26/2023 Abstract [facility] [address] [place] [address] Rylan Andrea MD [address] [place] [address] Social History Tobacco Use Types Packs/Day Years [...] Never 11/12/2023 How often do you attend buddhist or buddhist serv ices? Never 11/12/2023 Do you belong to any clubs o r organizations such as buddhist groups, unions, fraternal or athletic groups, or [...] Recorded Patient Health Questionnaire-2 Score 4 11/12/2023 [facility] of Occupat ional [...] in a retirement (including now)? Yes 08/17/2023 Housing Stability Vital [...] were you homeless or living in a retirement (including now)? No 11/12/2023 Sex and Gender [...] [facility] [address] [place] [address] Nilsa Isidro NP [address] [place] [address] documented as of this encounter Visit Diagnoses Not on filedocumented in this encounter Additional Health Concerns Assessment Noted Time PHQ-9 Depression Total Score: 11 024 3:05 PM EDT documented as of this encounter Care Teams Gericare Aide Teacher Relationship Specialty Start Date End Date Rylan Andrea MD [address] [place] [address] PCP - General Family Medicine 10/16/22 Rylan Andrea MD [address] [place] [address] PCP - [facility] 05/14/23 Marilu Craig NP [address] [place] [address] Nurse Practitioner Family Medicine 04/03/23 07/17/24 Nilsa Isidro NP [address] [place] [address] Nurse Practitioner Pulmonary Disease 04/03/23 Morenita Gomes RN [address] [place] [address] Registered Nurse Family Medicine 06/18/23 12/14/23 Sanjuana Van LSW [address] [place] [address] Cnc Lathe Programmer Family Medicine 06/18/23 Cindy Yeager OD [address] [place] [address] Referring Physician Optometry 10/31/23 Ophelia James DO [address] [place] [address] Pulmonary Disease 01/10/24 documented as of this encounter
--- OUTSIDE RECORDS SUMMARY | 2025-02-13 12:11 | XMS_ITS | Encounter Summary ---
Author Organization [facility] Address [address] [facility] [place] [address] Care Team Providers Care Plaster Lather Name Role Phone Rylan Andrea MD Primary Care Provider Marilu Craig MECHANICAL METER TESTER Unavailable Nilsa Isidro MECHANICAL METER TESTER Unavailable Morenita Gomes RN Unavailable [phone] Sanjuana Van MATERIAL CONTROL ANALYST Unavailable Cindy Yeager OD Unavailable Ophelia James DO Unavailable [phone] Rylan Andrea MD Unavailable [phone] Encounter Details Date Type Department Care Team (Late st Contact Info) Description 10/09/2023 Abstract [facility] [address] [place] [address] Rylan Andrea MD [address] [place] [address] Social History Tobacco Use Types Packs/Day Years [...] often do you attend chur ch or moravian services? Never 08/17/2023 Do you belong to [...] Recorded Patient Health Questionnaire-2 Score 6 10/04/2023 [facility] of Occupat ional Health - Occupational [...] [facility] [address] [place] [address] Nilsa Isidro, MECHANICAL METER TESTER [address] [place] [address] documented as of this encounter Visit Diagnoses Not on filedocumented in this encounter Additional Health Concerns Assessment Noted Time PHQ-9 Depression Total Score: 21 024 3:07 PM EDT documented as of this encounter Care Teams Plaster Lather Relationship Specialty Start Date End Date Rylan Andrea MD [address] [place] [address] PCP - General Family Medicine 10/16/22 Rylan Andrea MD [address] [place] [address] PCP - [facility] 05/14/23 Marilu Craig NP [address] [place] [id number] Nurse Practitioner Family Medicine 04/03/23 07/17/24 Nilsa Isidro NP [address] [place] [address] Nurse Practitioner Pulmonary Disease 04/03/23 Morenita Gomes, ARTHUR [address] [place] [address] Registered Nurse Family Medicine 06/18/23 12/14/23 Sanjuana Van LSW [address] [place] [address] Loading Machine Operator Helper Family Medicine 06/18/23 Cindy Yeager OD [address] [place] [address] Referring Physician Optometry 10/31/23 Ophelia James DO [address] [place] [address] Pulmonary Disease 01/10/24 documented as of this encounter
--- OUTSIDE RECORDS SUMMARY | 2025-02-13 12:11 | XMS_ITS | Encounter Summary ---
Author Organization [facility] Address [address] [facility] [place] [address] Care Team Providers Care Departmental Shipping Clerk Name Role Phone Rylan Andrea MD Primary Care Provider Marilu Craig NP Unavailable Nilsa Isidro GRAINING PRESS OPERATOR Unavailable Sanjuana VanW Unavailable Cindy Yeager OD Unavailable Ophelia James DO Unavailable [phone] Rylan Andrea MD Unavailable [phone] Encounter Details Date Type Department Care Team (Late st Contact Info) Description 01/24/2024 Abstract [facility] [address] [place] [address] Marilu Craig NP [address] [facility] [address] [place] [address] Social History Tobacco Use Types Packs/Day Years [...] How often do you attend religious or uatsdin serv ices? Never 11/12/2023 Do you belong [...] Recorded Patient Health Questionnaire-2 Score 6 01/21/2024 [facility] Occupat ional Health - Occupational [...] any time in the past 12 m [facility], were you homeless or living in [...] [facility] [address] [place] [address] Nilsa Isidro NP [address] [place] [address] documented as of this encounter Visit Diagnoses Not on filedocumented in this encounter Additional Health Concerns Assessment Noted Time PHQ-9 Depression Total Score: 21 024 1:49 PM EDT documented as of this encounter Care Teams Departmental Shipping Clerk Relationship Specialty Start Date End Date Rylan Andrea MD [address] [place] [address] PCP - General Family Medicine 10/16/22 Rylan Andrea MD [address] [place] [address] PCP - [facility] 05/14/23 Marilu Craig NP [address] [place] [address] Nurse Practitioner Family Medicine 04/03/23 07/17/24 Nilsa Isidro NP [address] [place] [address] Nurse Practitioner Pulmonary Disease 04/03/23 Sanjuana Van LSW [address] [place] [address] Cleaning Maid Family Medicine 06/18/23 Cindy Yeager OD [address] [place] [address] Referring Physician Optometry 10/31/23 Ophelia James DO [address] [place] [address] Pulmonary Disease 01/10/24 documented as of this encounter
--- OUTSIDE RECORDS SUMMARY | 2025-02-13 12:11 | XMS_ITS | Encounter Summary ---
Author Organization [facility] Address [address] [facility] [place] [address] Care Team Providers Care Retail Store Assistant Name Role Phone Rylan Andrea MD Primary Care Provider [phone] Marilu Craig NP Unavailable Nilsa Isidro LOGISTICS ACCOUNT MANAGER Unavailable [phone] Sanjuana VanW Unavailable Cindy Yeager OD Unavailable Ophelia James DO Unavailable [phone] Rylan Andrea MD Unavailable [phone] Encounter Details Date Type Department Care Team (Late st Contact Info) Description 01/22/2024 Abstract [facility] [address] [place] [address] Marilu Craig NP [address] [facility] [address] [place] [address] Social History Tobacco Use Types Packs/Day Years [...] How often do you attend shinto or jehovah's witness serv ices? Never 11/12/2023 [...] Recorded Patient Health Questionnaire-2 Score 6 01/21/2024 [facility] Occupat ional Health - [...] time in the past 12 m [facility], were you homeless or living in [...] [facility] [address] [place] [address] Nilsa Isidro NP [address] [place] [address] documented as of this encounter Visit Diagnoses Not on filedocumented in this encounter Additional Health Concerns Assessment Noted Time PHQ-9 Depression Total Score: 21 024 1:49 PM EDT documented as of this encounter Care Teams Retail Store Assistant Relationship Specialty Start Date End Date Rylan Andrea MD [address] [place] [address] PCP - General Family Medicine 10/16/22 Rylan Andrea MD [address] [place] [address] PCP - [facility] 05/14/23 Marilu Craig NP [address] [place] [address] Nurse Practitioner Family Medicine 04/03/23 07/17/24 Nilsa Isidro NP [address] [place] [address] Nurse Practitioner Pulmonary Disease 04/03/23 Sanjuana Van LSW [address] [place] [address] Management Internship Family Medicine 06/18/23 Cindy Yeager OD [address] [place] [address] Referring Physician Optometry 10/31/23 Ophelia James DO [address] [place] [address] Pulmonary Disease 01/10/24 documented as of this encounter
--- OUTSIDE RECORDS SUMMARY | 2025-02-13 12:11 | XMS_ITS | Encounter Summary ---
Author Organization [facility] Address [address] [facility] [place] [address] Care Team Providers Care Electrical Tech Name Role Phone Rylan Andrea MD Primary Care Provider Marilu Craig DELI CUTTER SLICER Unavailable Nilsa Isidro DELI CUTTER SLICER Unavailable [phone] Morenita Gomes RN Unavailable [phone] Sanjuana Van ETL CONSULTANT Unavailable Cindy Yeager OD Unavailable Ophelia James DO Unavailable [phone] Rylan Andrea MD Unavailable [phone] Encounter Details Date Type Department Care Team (Late st Contact Info) Description 10/18/2023 Abstract [facility] [address] [place] [address] Rylan Andrea MD [address] [place] [address] Social History Tobacco Use Types Packs/Day Years [...] often do you attend chur ch or sikhism services? Never 08/17/2023 Do you belong to [...] Recorded Patient Health Questionnaire-2 Score 6 10/04/2023 [facility] of Occupat ional Health - [...] in a fci (including now)? Yes 08/17/2023 Sex and Gender [...] [facility] [address] [place] [address] Nilsa Isidro, DELI CUTTER SLICER [address] [place] [address] documented as of this encounter Visit Diagnoses Not on filedocumented in this encounter Additional Health Concerns Assessment Noted Time PHQ-9 Depression Total Score: 21 024 3:07 PM EDT documented as of this encounter Care Teams Electrical Tech Relationship Specialty Start Date End Date Rylan Andrea MD [address] [place] [address] PCP - General Family Medicine 10/16/22 Rylan Andrea MD [address] [place] [address] PCP - [facility] 05/14/23 Marilu Craig NP [address] [place] [phone] Nurse Practitioner Family Medicine 04/03/23 07/17/24 Nilsa Isidro NP [address] [place] [address] Nurse Practitioner Pulmonary Disease 04/03/23 Morenita Gomes, ARTHUR [address] [place] [address] Registered Nurse Family Medicine 06/18/23 12/14/23 Sanjuana Van LSW [address] [place] [address] Estate Tax Examiner Family Medicine 06/18/23 Cindy Yeager OD [address] [place] [address] Referring Physician Optometry 10/31/23 Ophelia James DO [address] [place] [address] Pulmonary Disease 01/10/24 documented as of this encounter
--- OUTSIDE RECORDS SUMMARY | 2025-02-13 12:12 | XMS_ITS | Encounter Summary ---
Author Organization [facility] Address [address] [facility] [place] [address] Care Team Providers Care Drum Filler Name Role Phone Rylan Andrea MD Primary Care Provider Marilu Craig PICKING MACHINE OPERATOR Unavailable Nilsa Isidro PICKING MACHINE OPERATOR Unavailable [phone] Sanjuana Van ASSISTANT COUNTY ENGINEER Unavailable Cindy Yeager OD Unavailable Ophelia James DO Unavailable [phone] Rylan Andrea MD Unavailable [phone] Encounter Details Date Type Department Care Team (Late st Contact Info) Description 01/31/2024 Abstract [facility] [address] [place] [address] Rylan Andrea MD [address] [place] [address] Social History Tobacco Use Types [...] How often do you attend lutheran or scientology serv ices? Never 11/12/2023 Do you belong [...] Recorded Patient Health Questionnaire-2 Score 6 02/04/2024 [facility] of Occupat ional Health - Occupational [...] to sleep or slept in a senior living (including now)? Yes 08/17/2023 Housing Stability Vital [...] you homeless or living in a senior living (including now)? No 11/12/2023 Sex and Gender [...] [facility] [address] [place] [address] Nilsa Isidro, ELLE [address] [place] [address] documented as of this encounter Visit Diagnoses Not on filedocumented in this encounter Additional Health Concerns Assessment Noted Time PHQ-9 Depression Total Score: 21 024 1:49 PM EDT documented as of this encounter Care Teams Drum Filler Relationship Specialty Start Date End Date Rylan Andrea MD [address] [place] [address] PCP - General Family Medicine 10/16/22 Rylan Andrea MD [address] [place] [address] PCP - [facility] 05/14/23 Marilu Carig NP [address] [place] [address] Nurse Practitioner Family Medicine 04/03/23 07/17/24 Nilsa Isidro NP [address] [place] [address] Nurse Practitioner Pulmonary Disease 04/03/23 Sanjuana Van LSW [address] [place] [address] Color Television Console Monitor Family Medicine 06/18/23 Cindy Yeager OD [facility] [place] [address] Referring Physician Optometry 10/31/23 Ophelia James DO [address] [place] [address] Pulmonary Disease 01/10/24 documented as of this encounter
--- OUTSIDE RECORDS SUMMARY | 2025-02-13 12:12 | XMS_ITS | Encounter Summary ---
Author Organization [facility] Address [address] [facility] [place] [address] Care Team Providers Care Coffee Attendant Name Role Phone Rylan Andrea MD Primary Care Provider [phone] Marilu Craig NP Unavailable Nilsa Isidro BUGGY LADLE TENDER Unavailable [phone] Sanjuana Van ASSISTANT PRODUCE MANAGER Unavailable Cindy Yeager OD Unavailable Ophelia James DO Unavailable [phone] Rylan Andrea MD Unavailable [phone] Encounter Details Date Type Department Care Team (Late st Contact Info) Description 01/24/2024 Orders Only [facility] [address] [place] [address] Marilu Craig NP [address] [facility] [address] [place] [address] Social History Tobacco Use Types Packs/Day Years [...] Never 11/12/2023 How often do you attend islam or hindu serv ices? Never 11/12/2023 Do you belong to any clubs o r organizations such as islam groups, unions, fraternal or athletic groups, or [...] Recorded Patient Health Questionnaire-2 Score 6 01/21/2024 [facility] of Occupat ional [...] any time in the past 12 m [facility], were you homeless or living [...] [facility] [address] [place] [address] Nilsa Isidro NP [address] [place] [address] documented as of this encounter Procedures Procedure Name Priority Date/Time Associated Diagnosis Comments XR ABDOMEN 2 VIEW Routine 01/24/2024 9:34 AM EDT documented in this encounter Results * XR ABDOMEN 2 VIEW (01/24/2024 9:34 AM EDT) Anatomical Region Laterality Modality Abdomen Radiographic Anna ging Marilu Craig BUGGY LADLE TENDER IMG XR PROCEDURES Final Result documented in this encounter Visit Diagnoses Not on filedocumented in this encounter Additional Health Concerns Assessment Noted Time PHQ-9 Depression Total Score: 21 024 1:49 PM EDT documented as of this encounter Care Teams Coffee Attendant Relationship Specialty Start Date End Date Rylan Andrea MD [address] [place] [address] PCP - General Family Medicine 10/16/22 Rylan Andrea MD [address] [place] [address] PCP - [facility] 05/14/23 Marilu Craig NP [address] [place] [address] Nurse Practitioner Family Medicine 04/03/23 07/17/24 Nilsa Isidro NP [address] [place] [address] Nurse Practitioner Pulmonary Disease 04/03/23 Sanjuana Van, ASSISTANT PRODUCE MANAGER [address] [place], [place] [id number] Senior Investment Analyst Family Medicine 06/18/23 Shobha, Cindy, MAJO [address] [place] [address] Referring Physician Optometry 10/31/23 Ophelia James DO [address] [place] [address] Pulmonary Disease 01/10/24 documented as of this encounter
--- OUTSIDE RECORDS SUMMARY | 2025-02-13 12:12 | XMS_ITS ---
Author Organization [facility] Address [address] [place] [address] Care Team Providers Care Congregational Care Pastor Name Role Phone Rylan Andrea MD Primary Care Provider [phone] Nilsa Isidro DIVORCE MEDIATOR Unavailable [phone] Sanjuana Van Unavailable Cindy Yeager OD Unavailable Ophelia James DO Unavailable [phone] Rylan Andrea MD Unavailable [phone] Chronic Care Management (CCM) Status:Enrolled (Active) Start date:06/18/2023 Enrollment date:06/18/2023 Enrollment reason:Identified as high-risk Overview Please assess for Care Management needs. 06/18/23, 12:56 PM - APOLINAR Brasher- Patient gives verbal consent to be enrolled in CCM Program and understands there could be a bill for this service. Case Team Name Relationship Phone Sanjuana JIANG(Responsible Staff) Bone Grinder [phone] Continued Care and Services Coordination
--- OUTSIDE RECORDS SUMMARY | 2025-02-13 12:12 | XMS_ITS | Encounter Summary ---
Author Organization [facility] Address [address] [place] [address] Phone Care Team Providers Care Road Design Draftsperson Name Role Phone Rylan Andrea MD Primary Care Provider Encounter Details Date Type Department Care Team (Late st Contact Info) Description 03/08/2020 Orders Only [facility] [address] [place] [address] Conversion, Onbase Social History Tobacco Use Types [...] on filedocumented in this encounter Care Teams Road Design Draftsperson Relationship Specialty Start Date End Date Rylan Andrea MD [address] [place] [address] PCP - General 03/03/20 documented as of this encounter
--- OUTSIDE RECORDS SUMMARY | 2025-02-13 12:12 | XMS_ITS | Encounter Summary ---
Author Organization [facility] Address [address] [facility] [place] [address] Care Team Providers Care Mixing Technician Name Role Phone Rylan Andrea MD Primary Care Provider Marilu Craig ACCESS SPEC Unavailable Nilsa Isidro ACCESS SPEC Unavailable Morenita Gomes RN Unavailable [phone] Sanjuana Van SENIOR ACCOUNT EXECUTIVE Unavailable Cindy Yeager OD Unavailable Ophelia James DO Unavailable [phone] Rylan Andrea MD Unavailable [phone] Encounter Details Date Type Department Care Team (Late st Contact Info) Description 09/08/2023 Orders Only [facility] [address] [place] [address] Manpreet Myers DO [facility] [place] [address] Social History Tobacco Use Types [...] any clubs o r organizations such as congregation groups, unions, fraternal or athletic groups, or [...] Recorded Patient Health Questionnaire-2 Score 6 09/11/2023 [facility] of Occupat ional Health [...] television Nearly every day 09/11/2023 1:49 PM TRISHT Alta Delgado MA Moving or speaking so slowly that other people could have noticed? Or the opposite - being so fidgety or restless that you have been moving around a lot more than usual. Not at all 09/11/2023 1:49 PM EDT Alta Delgado MA Thoughts that you would be better off or hurting yourself in some way Nearly every day 09/11/2023 1:49 PM TRISHT Alta Delgado MA Patient Health Questionnaire-9 Score 24 09/11/2023 1:49 PM TRISHT Alta Delgado M A * If you [...] [facility] [address] [place] [address] Nilsa Isidro NP [address] [place] [address] documented as of this encounter Procedures Procedure [...] documented as of this encounter Care Teams Mixing Technician Relationship Specialty Start Date End Date Rylan Andrea MD [address] [place] [address] PCP - General Family Medicine 10/16/22 Rylan Andrea MD [address] [place] [id number] PCP - [facility] 05/14/23 Marilu Craig NP [address] [place] [address] Nurse Practitioner Family Medicine 04/03/23 07/17/24 Nilsa Isidro NP [address] [place] [address] Nurse Practitioner Pulmonary Disease 04/03/23 Morenita Gomes, RN [address] [place] [address] Registered Nurse Family Medicine 06/18/23 12/14/23 Sanjuana Van LSW [address] [place] [address] Soaping Machine Back Tender Family Medicine 06/18/23 Cindy Yeager OD [facility] [place] [address] Referring Physician Optometry 10/31/23 Ophelia James, [address] [place] [address] Pulmonary Disease 01/10/24 documented as of this encounter
--- OUTSIDE RECORDS SUMMARY | 2025-02-13 12:12 | XMS_ITS | Encounter Summary ---
Author Organization [facility] Address [address] [facility] [place] [address] Care Team Providers Care Android Platform Developer Name Role Phone Rylan Andrea MD Primary Care Provider Nilsa Isidro PROCESS DEVELOPMENT CHEMIST Unavailable [phone] Sanjuana Van GREIGE GOODS EXAMINER Unavailable Cindy Yeager OD Unavailable Ophelia James DO Unavailable [phone] Rylan Andrea MD Unavailable [phone] Encounter Details Date Type Department Care Team (Late st Contact Info) Description 01/26/2025 Abstract [facility] [address] [place] [address] Rylan Andrea MD [address] [place] [address] Social History Tobacco Use Types Packs/Day Years [...] Never 11/12/2023 How often do you attend mu-ism or hinduism serv ices? Never 11/12/2023 Do you belong to any clubs o r organizations such as mu-ism groups, unions, fraternal or athletic groups, or [...] Recorded Patient Health Questionnaire-2 Score 6 01/13/2025 [facility] of Occupat ional [...] in the past [address] [facility], were you homeless or living in a [...] [facility] [address] [place] [address] Nilsa Isidro, PROCESS DEVELOPMENT CHEMIST [address] [place] [address] documented as of this encounter Visit Diagnoses Not on filedocumented in this encounter Additional Health Concerns Assessment Noted Time PHQ-9 Depression Total Score: 18 01/13/ 025 1:00 PM EDT documented as of this encounter Care Teams Android Platform Developer Relationship Specialty Start Date End Date Rylan Andrea MD [address] [place] [address] PCP - General Family Medicine 10/16/22 Rylan Andrea MD [address] [place] [address] PCP - [facility] 05/14/23 Nilsa Isidro, ELLE [address] [place] [address] Nurse Practitioner Pulmonary Disease 04/03/23 Sanjuana Van LSW [address] [place] [address] Veterinary Parasitologist Family Medicine 06/18/23 Cindy Yeager OD [address] [place] [address] Referring Physician Optometry 10/31/23 Ophelia James DO [address] [place] [address] Pulmonary Disease 01/10/24 documented as of this encounter
--- OUTSIDE RECORDS SUMMARY | 2025-02-13 12:12 | XMS_ITS | Encounter Summary ---
Author Organization [facility] Address [address] [facility] [place] [address] Care Team Providers Care Supervisor Final Name Role Phone Rylan Andrea MD Primary Care Provider Marilu Craig NP Unavailable Nilsa Isidro DIRECTOR FACILITIES MAINTENANCE Unavailable [phone] Sanjuana VanW Unavailable Cindy Yeager OD Unavailable Ophelia James DO Unavailable [phone] Rylan Andrea MD Unavailable [phone] Encounter Details Date Type Department Care Team (Late st Contact Info) Description 02/18/2024 Abstract [facility] [address] [place] [address] Marilu Craig NP [address] [facility] [address] [place] [address] Social History Tobacco Use Types Packs/Day Years [...] How often do you attend buddhist or mormon serv ices? Never 11/12/2023 Do you belong [...] Recorded Patient Health Questionnaire-2 Score 6 02/04/2024 [facility] of Occupat ional Health - Occupational [...] time in the past 12 m [facility], were you homeless or living in a [...] [facility] [address] [place] [address] Nilsa Isidro NP [address] [place] [address] documented as of this encounter Visit Diagnoses Not on filedocumented in this encounter Additional Health Concerns Assessment Noted Time PHQ-9 Depression Total Score: 024 1:39 PM EDT documented as of this encounter Care Teams Supervisor Final Relationship Specialty Start Date End Date Rylan Andrea MD [address] [place] [address] PCP - General Family Medicine 10/16/22 Rylan Andrea MD [address] [place] [address] PCP - [facility] 05/14/23 Marilu Craig NP [address] [place] [address] Nurse Practitioner Family Medicine 04/03/23 07/17/24 Nilsa Isidro NP [address] [place] [address] Nurse Practitioner Pulmonary Disease 04/03/23 Sanjuana Van LSW [address] [place] [address] Compliance Monitor Family Medicine 06/18/23 Cindy Yeager OD [address] [place] [address] Referring Physician Optometry 10/31/23 Ophelia James DO [address] [place] [address] Pulmonary Disease 01/10/24 documented as of this encounter
--- OUTSIDE RECORDS SUMMARY | 2025-02-13 12:12 | XMS_ITS | Encounter Summary ---
Author Organization [facility] Address [address] [facility] [place] [address] Care Team Providers Care Underwriter Name Role Phone Rylan Andrea MD Primary Care Provider Marilu Craig TIMBER CRUISER Unavailable Nilsa Isidro TIMBER CRUISER Unavailable [phone] Morenita Gomes RN Unavailable [phone] Sanjuana Van VOLCANOLOGY TEACHER Unavailable Cindy Yeager OD Unavailable Ophelia James DO Unavailable [phone] Rylan Andrea MD Unavailable [phone] Encounter Details Date Type Department Care Team (Late st Contact Info) Description 07/09/2023 Orders Only [facility] [address] [place] [address] Rylan Andrea MD [address] [place] [address] Social History Tobacco Use Types Packs/Day Years [...] [facility] [address] [place] [address] Nilsa Isidro NP [address] [place] [address] documented as of this encounter Procedures Procedure [...] documented as of this encounter Care Teams Underwriter Relationship Specialty Start Date End Date Rylan Andrea MD [address] [place] [address] PCP - General Family Medicine 10/16/22 Rylan Andrea MD [address] [place] [address] PCP - [facility] 05/14/23 Marilu Craig NP [address] [place] [address] Nurse Practitioner Family Medicine 04/03/23 07/17/24 Nilsa Isidro NP [address] [place] [address] Nurse Practitioner Pulmonary Disease 04/03/23 Morenita Gomes, ARTHUR [address] [place] [address] Registered Nurse Family Medicine 06/18/23 12/14/23 Sanjuana Van LSW [address] [place] [address] Powder Guard Family Medicine 06/18/23 Cindy Yeager OD [address] [place] [address] Referring Physician Optometry 10/31/23 Ophelia James DO [address] [place] [address] Pulmonary Disease 01/10/24 documented as of this encounter
--- OUTSIDE RECORDS SUMMARY | 2025-02-13 12:12 | XMS_ITS | Encounter Summary ---
Author Organization [facility] Address [address] [facility] [place] [address] Care Team Providers Care Etcher Enameling Name Role Phone Rylan Andrea MD Primary Care Provider Marilu Craig RECYCLING PROGRAM MANAGER Unavailable Nilsa Isidro RECYCLING PROGRAM MANAGER Unavailable Sanjuana Van RELIGIOUS EDUCATION TEACHER Unavailable Cindy Yeager OD Unavailable Ophelia James DO Unavailable [phone] Rylan Andrea MD Unavailable [phone] Encounter Details Date Type Department Care Team (Late st Contact Info) Description 01/29/2024 Abstract [facility] [address] [place] [address] Rylan Andrea MD [address] [place] [address] Social History Tobacco Use Types [...] How often do you attend scientology or yarsani serv ices? Never 11/12/2023 Do you belong [...] Recorded Patient Health Questionnaire-2 Score 6 01/21/2024 [facility] of Occupat ional Health - [...] any time in the past 12 m [facility], were you homeless or [...] [facility] [address] [place] [address] Nilsa Isidro, ELLE [address] [place] [address] documented as of this encounter Visit Diagnoses Not on filedocumented in this encounter Additional Health Concerns Assessment Noted Time PHQ-9 Depression Total Score: 21 024 1:49 PM EDT documented as of this encounter Care Teams Etcher Enameling Relationship Specialty Start Date End Date Rylan Andrea MD [address] [place] [address] PCP - General Family Medicine 10/16/22 Rylan Andrea MD [address] [place] [address] PCP - [facility] 05/14/23 Marilu Craig NP [address] [place] [address] Nurse Practitioner Family Medicine 04/03/23 07/17/24 Nilsa Isidro NP [address] [place] [address] Nurse Practitioner Pulmonary Disease 04/03/23 Sanjuana aVn LSW [address] [place] [address] Media Marketing Specialist Family Medicine 06/18/23 Cindy Yeager OD [facility] [place] [address] Referring Physician Optometry 10/31/23 Ophelia James DO [address] [place] [address] Pulmonary Disease 01/10/24 documented as of this encounter
--- OUTSIDE RECORDS SUMMARY | 2025-02-13 12:12 | XMS_ITS | Encounter Summary ---
Author Organization [facility] Address [address] [facility] [place] [address] Care Team Providers Care Foundry Operator Name Role Phone Rylan Andrea MD Primary Care Provider Marilu Craig NP Unavailable Nilsa Isidro BUDGET SPECIALIST Unavailable [phone] Sanjuana VanW Unavailable Cindy Yeager OD Unavailable Ophelia James DO Unavailable [phone] Rylan Andrea MD Unavailable [phone] Encounter Details Date Type Department Care Team (Late st Contact Info) Description 01/24/2024 Abstract [facility] [address] [place] [address] Marilu Craig NP [address] [facility] [address] [place] [address] Social History Tobacco Use Types Packs/Day Years [...] Never 11/12/2023 How often do you attend judaism or latter day serv ices? Never 11/12/2023 Do you belong [...] Recorded Patient Health Questionnaire-2 Score 6 01/21/2024 [facility] of Occupat ional Health - [...] any time in the past 12 m [facility], were you homeless or [...] [facility] [address] [place] [address] Nilsa Isidro NP [address] [place] [address] documented as of this encounter Visit Diagnoses Not on filedocumented in this encounter Additional Health Concerns Assessment Noted Time PHQ-9 Depression Total Score: 21 024 1:49 PM EDT documented as of this encounter Care Teams Foundry Operator Relationship Specialty Start Date End Date Rylan Andrea MD [address] [place] [address] PCP - General Family Medicine 10/16/22 Rylan Andrea MD [address] [place] [address] PCP - [facility] 05/14/23 Marilu Craig NP [address] [place] [address] Nurse Practitioner Family Medicine 04/03/23 07/17/24 Nilsa Isidro NP [address] [place] [address] Nurse Practitioner Pulmonary Disease 04/03/23 Sanjuana Van LSW [address] [place] [address] Spool Sander Family Medicine 06/18/23 Cindy Yeager OD [address] [place] [address] Referring Physician Optometry 10/31/23 Ophelia James DO [address] [place] [address] Pulmonary Disease 01/10/24 documented as of this encounter
--- OUTSIDE RECORDS SUMMARY | 2025-02-13 12:12 | XMS_ITS | Encounter Summary ---
Author Organization [facility] Address [address] [facility] [place] [address] Care Team Providers Care Director Targeted Marketing Name Role Phone Rylan Andrea MD Primary Care Provider Marilu Craig INCLUSION INTERN Unavailable Nilsa Isidro INCLUSION INTERN Unavailable Morenita Gomes RN Unavailable Sanjuana Van EXECUTIVE MARKETING ASSISTANT Unavailable Cindy Yeager OD Unavailable Ophelia James DO Unavailable [phone] Rylan Andrea MD Unavailable [phone] Encounter Details Date Type Department Care Team (Late st Contact Info) Description 09/06/2023 Abstract [facility] [address] [place] [address] Rylan Andrea MD [address] [place] [address] Social History Tobacco Use Types Packs/Day Years [...] often do you attend chur ch or mu-ism services? Never 08/17/2023 Do you belong to any clubs o r organizations such as mormonism groups, unions, fraternal or athletic groups, or [...] Recorded Patient Health Questionnaire-2 Score 6 04/12/2023 [facility] [place] of Occupat ional Health - Occupational Stress [...] in a [facility] (including now)? Yes 08/17/2023 Sex and Gender [...] [facility] [address] [place] [address] Nilsa Isidro NP [address] [place] [address] documented as of this encounter Visit Diagnoses Not on filedocumented in this encounter Additional Health Concerns Assessment Noted Time PHQ-9 Depression Total Score: 023 1:46 PM EST documented as of this encounter Care Teams Director Targeted Marketing Relationship Specialty Start Date End Date Rylan Andrea MD [address] [place] [address] PCP - General Family Medicine 10/16/22 Rylan Andrea MD [address] [place] [id number] PCP - [facility] 05/14/23 Marilu Craig NP [address] [place] [phone] Nurse Practitioner Family Medicine 04/03/23 07/17/24 Nilsa Isidro NP [address] [place] [address] Nurse Practitioner Pulmonary Disease 04/03/23 Morenita Gomes, ARTHUR [address] [place] [address] Registered Nurse Family Medicine 06/18/23 12/14/23 Sanjuana Van LSW [address] [place] [address] Security Assurance Specialist Family Medicine 06/18/23 Cindy Yeager OD [address] [place] [address] Referring Physician Optometry 10/31/23 Ophelia James DO [address] [place] [address] Pulmonary Disease 01/10/24 documented as of this encounter
--- OUTSIDE RECORDS SUMMARY | 2025-02-13 12:12 | XMS_ITS | Encounter Summary ---
Author Organization [facility] Address [address] [place] [address] Phone Care Team Providers Care Multisensor Intelligence Officer Name Role Phone Rylan Andrea MD Primary Care Provider Encounter Details Date Type Department Care Team (Late st Contact Info) Description 04/06/2020 Orders Only [facility] [address] [place] [address] Conversion, Onbase Social History Tobacco Use Types [...] on filedocumented in this encounter Care Teams Multisensor Intelligence Officer Relationship Specialty Start Date End Date Rylan Andrea MD [address] [place] [address] PCP - General 03/03/20 documented as of this encounter
--- OUTSIDE RECORDS SUMMARY | 2025-02-13 12:12 | XMS_ITS | Encounter Summary ---
Author Organization [facility] Address [address] [place] [address] Care Team Providers Care Wood Boring Machine Operator Name Role Phone Rylan Andrea MD Primary Care Provider [phone] Nilsa Isidro WEIGHER AND MIXER Unavailable [phone] Sanjuana Van DIRECTOR TALENT Unavailable Cindy Yeager OD Unavailable Ophelia James DO Unavailable [phone] Rylan Andrea MD Unavailable [phone] Encounter Details Date Type Department Care Team (Latest Contact Info) Description 02/03/2025 Travel Social History Tobacco Use Types Packs/Day Years [...] How often do you attend evangelical or lutheran serv ices? Never 11/12/2023 Do you belong [...] Recorded Patient Health Questionnaire-2 Score 6 01/13/2025 [facility] of Occupat ional Health - [...] [facility] [address] [place] [address] Nilsa Isidro NP [address] [place] [address] documented as of this encounter Visit Diagnoses Not on filedocumented in this encounter Additional Health Concerns Assessment Noted Time PHQ-9 Depression Total Score: 18 025 1:00 PM EDT documented as of this encounter Care Teams Wood Boring Machine Operator Relationship Specialty Start Date End Date Rylan Andrea MD [address] [place] [address] PCP - General Family Medicine 10/16/22 Rylan Andrea MD [address] [place] [address] PCP - [facility] 05/14/23 Nilsa Isidro NP [address] [place] [address] Nurse Practitioner Pulmonary Disease 04/03/23 Sanjuana Van LSW [address] [place] [address] Anesthesia Associate Family Medicine 06/18/23 Cindy Yeager OD [address] [place] [address] Referring Physician Optometry 10/31/23 Ophelia James DO [address] [place] [address] Pulmonary Disease 01/10/24 documented as of this encounter
--- OUTSIDE RECORDS SUMMARY | 2025-02-13 12:12 | XMS_ITS | Encounter Summary ---
Author Organization [facility] Address [address] [facility] [place] [address] Care Team Providers Care Replenisher Name Role Phone Rylan Andrea MD Primary Care Provider [phone] Marilu Craig RESIDENTIAL INSURANCE INSPECTOR Unavailable Nilsa Isidro RESIDENTIAL INSURANCE INSPECTOR Unavailable [phone] Morenita Gomes RN Unavailable [phone] Sanjuana Van RESPIRATORY THERAPIST Unavailable Cindy Yeager OD Unavailable Ophelia James DO Unavailable [phone] Rylan Andrea MD Unavailable [phone] Encounter Details Date Type Department Care Team (Late st Contact Info) Description 09/07/2023 Orders Only [facility] [address] [place] [address] Manpreet Myers DO [facility] [place] [address] Social History Tobacco Use Types [...] often do you attend chur ch or buddhist services? Never 08/17/2023 Do you belong to any clubs o r organizations such as mosque groups, unions, fraternal or athletic groups, or [...] Recorded Patient Health Questionnaire-2 Score 6 09/11/2023 [facility] of Occupat ional Health [...] Family Medicine [address] [place] [address] Nilsa Isidro, RESIDENTIAL INSURANCE INSPECTOR [address] [place] [address] documented as of this encounter Procedures Procedure [...] documented as of this encounter Care Teams Replenisher Relationship Specialty Start Date End Date Rylan Andrea MD [address] [place] [address] PCP - General Family Medicine 10/16/22 Rylan Andrea MD [address] [place] [address] PCP - [facility] 05/14/23 Marilu Craig NP [address] [place] [address] Nurse Practitioner Family Medicine 04/03/23 07/17/24 Nilsa Isidro NP [address] [place] [address] Nurse Practitioner Pulmonary Disease 04/03/23 Morenita Gomes, ARTHUR [address] [place] [address] Registered Nurse Family Medicine 06/18/23 12/14/23 Sanjuana Van LSW [address] [place] [address] Cotton Inspector Family Medicine 06/18/23 Cindy Yeager OD [address] [place], [place] [address] Referring Physician Optometry 10/31/23 Ophelia James, DO [address] [place] [address] Pulmonary Disease 01/10/24 documented as of this encounter
--- OUTSIDE RECORDS SUMMARY | 2025-02-13 12:12 | XMS_ITS | Encounter Summary ---
Author Organization [facility] Address [address] [facility] [address] Care Team Providers Care Speech Language Pathologist Assistant Name Role Phone Rylan Andrea MD Primary Care Provider Nilsa Isidro CLIENT RELATIONSHIP EXECUTIVE Unavailable Sanjuana Van CREATIVE ART DIRECTOR Unavailable Cindy Yeager OD Unavailable Ophelia James DO Unavailable [phone] Rylan Andrea MD Unavailable [phone] Encounter Details Date Type Department Care Team (Late st Contact Info) Description 01/24/2025 Orders Only [facility] [address] [place] [address] Nilsa Isidro CLIENT RELATIONSHIP EXECUTIVE [address] [place] [address] Social History Tobacco Use Types [...] Never 11/12/2023 How often do you attend confucianism or pentecostalism serv ices? Never 11/12/2023 Do you belong to any clubs o r organizations such as confucianism groups, unions, fraternal or athletic groups, or [...] Recorded Patient Health Questionnaire-2 Score 6 01/13/2025 [facility] of Occupat ional Health - Occupational [...] place to sleep or slept in a detention (including now)? Yes 08/17/2023 Housing Stability Vital [...] were you homeless or living in a detention (including now)? No 11/12/2023 Sex and Gender [...] [facility] [place] [facility] [address] [place] [address] Nilsa Isidro NP [address] [place] [address] documented as of this encounter Procedures Procedure Name Priority Date/Time Associated Diagnosis Comments XR CHEST 1 VIEW Routine 01/24/2025 7:[address] SCAN : ANGIOGRAM Routine 01/24/2025 7:11 PM EDT documented in this encounter Results * XR chest 1 view (01/24/2025 7:16 PM EDT) Anatomical Region Laterality Modality Chest Radiographic Anna ging us Nilsa Isidro CLIENT RELATIONSHIP EXECUTIVE IMG XR PROCEDURES Final Resul t * CT SCAN : ANGIOGRAM (01/24/2025 7:11 PM EDT) Anatomical Region Laterality Modality Radiographic Anna ging us Nilsa Isidro CLIENT RELATIONSHIP EXECUTIVE IMG XR PROCEDURES Final Resul t documented in this encounter Visit Diagnoses Not on filedocumented in this encounter Additional Health Concerns Assessment Noted Time PHQ-9 Depression Total Score: 18 025 1:00 PM EDT documented as of this encounter Care Teams Speech Language Pathologist Assistant Relationship Specialty Start Date End Date Rylan Andrea MD [address] [place] [address] PCP - General Family Medicine 10/16/22 Rylan Andrea MD [address] [place] [address] PCP - [facility] 05/14/23 Nilsa Isidro NP [address] [place] [address] Nurse Practitioner Pulmonary Disease 04/03/23 Sanjuana Van LSW [address] [place] [address] Fiber Locking Supervisor Family Medicine 06/18/23 Cindy Yeager OD [address] [place] [address] Referring Physician Optometry 10/31/23 Ophelia James DO [address] [place] [address] Pulmonary Disease 01/10/24 documented as of this encounter
--- OUTSIDE RECORDS SUMMARY | 2025-02-13 12:12 | XMS_ITS | Encounter Summary ---
Author Organization [facility] Address [address] [place] [address] Phone Care Team Providers Care Asphalt Blender Name Role Phone Rylan Andrea MD Primary Care Provider Encounter Details Date Type Department Care Team (Late st Contact Info) Description 08/16/[address] [facility] [address] [place] [address] Conversion, Onbase Social History Tobacco Use Types [...] on filedocumented in this encounter Care Teams Asphalt Blender Relationship Specialty Start Date End Date Rylan Andrea MD [address] [place] [address] PCP - General 03/03/20 documented as of this encounter
--- OUTSIDE RECORDS SUMMARY | 2025-02-13 12:12 | XMS_ITS | Encounter Summary ---
Author Organization [facility] Address [address] [place] [address] Phone Care Team Providers Care Veterans Service Officer Name Role Phone Rylan Andrea MD Primary Care Provider [phone] Encounter Details Date Type Department Care Team (Late st Contact Info) Description 09/02/2021 Orders Only [facility] [address] [place] [address] Conversion, Onbase Social History Tobacco Use Types [...] on filedocumented in this encounter Care Teams Veterans Service Officer Relationship Specialty Start Date End Date Rylan Andrea MD [address] [place] [address] PCP - General 03/03/20 documented as of this encounter
--- OUTSIDE RECORDS SUMMARY | 2025-02-13 12:12 | XMS_ITS | Encounter Summary ---
Author Organization [facility] Address [address] [facility] [place] [address] Care Team Providers Care Directory Carrier Name Role Phone Rylan Andrea MD Primary Care Provider Nilsa Isidro HITTING COACH Unavailable Sanjuana Van NON DESTRUCTIVE EVALUATION TECHNICIAN Unavailable Cindy Yeager OD Unavailable Ophelia James DO Unavailable [phone] Rylan Andrea MD Unavailable [phone] Encounter Details Date Type Department Care Team (Late st Contact Info) Description 02/03/2025 Bamboo flowsheet [facility] [address] [place] [address] Nilsa Isidro HITTING COACH [address] [place] [address] Social History Tobacco Use Types [...] How often do you attend presybeterian or pentecostal serv ices? Never 11/12/2023 Do [...] Recorded Patient Health Questionnaire-2 Score 6 01/13/2025 [facility] of Occupat ional [...] in the past 12 m [facility], were you homeless or living in [...] [facility] [address] [place] [address] Nilsa Isidro, ELLE [address] [place] [address] documented as of this encounter Visit Diagnoses Not on filedocumented in this encounter Additional Health Concerns Assessment Noted Time PHQ-9 Depression Total Score: 18 025 1:00 PM EDT documented as of this encounter Care Teams Directory Carrier Relationship Specialty Start Date End Date Rylan Andrea MD [address] [place] [address] PCP - General Family Medicine 10/16/22 Rylan Andrea MD [address] [place] [id number] PCP - [facility] 05/14/23 Nilsa Isidro NP [address] [place] [address] Nurse Practitioner Pulmonary Disease 04/03/23 Sanjuana Van, NON DESTRUCTIVE EVALUATION TECHNICIAN [address] [place] [address] Family Service Caseworker Family Medicine 06/18/23 Cindy Yeager OD [address] [place] [address] Referring Physician Optometry 10/31/23 Ophelia James DO [address] [place] [address] Pulmonary Disease 01/10/24 documented as of this encounter
--- OUTSIDE RECORDS SUMMARY | 2025-02-13 12:12 | XMS_ITS | Encounter Summary ---
Author Organization [facility] Address [address] [facility] [place] [address] Care Team Providers Care Garnett Mechanic Name Role Phone Rylan Andrea MD Primary Care Provider [phone] Marilu Craig NP Unavailable Nilsa Isidro IUSS ANALYST Unavailable [phone] Sanjuana Van RADIOISOTOPE TECHNOLOGIST Unavailable Cindy Yeager OD Unavailable Ophelia James DO Unavailable [phone] Rylan Andrea MD Unavailable [phone] Encounter Details Date Type Department Care Team (Late st Contact Info) Description 02/18/2024 Orders Only [facility] [address] [place] [address] Marilu Craig NP [address] [facility] [address] [place] [address] Social History Tobacco Use Types Packs/Day Years [...] How often do you attend orthodox or scientology serv ices? Never 11/12/2023 Do [...] Recorded Patient Health Questionnaire-2 Score 6 02/04/2024 [facility] of Occupat ional Health - [...] any time in the past 12 m [facility], were you homeless or living in [...] [facility] [address] [place] [address] Nilsa Isidro NP [address] [place] [address] documented as of this encounter Procedures Procedure Name Priority Date/Time Associated Diagnosis Comments COLONOSCOPY DIAGNOSTIC Routine 02/18/2024 2:34 PM EDT ENDOSCOPY PROCEDURES Routine 02/18/2024 2:30 PM EDT documented in this encounter Results * COLONOSCOPY DIAGNOSTIC (02/18/2024 2:34 PM EDT) Anatomical Region Laterality Modality Radiographic Anna ging Marilu Craig NP IMG XR PROCEDURES Final Result * ENDOSCOPY PROCEDURES (02/18/2024 2:30 PM EDT) Anatomical Region Laterality Modality Radiographic Anna ging Marilu Craig NP IMG XR PROCEDURES Final Result documented in this encounter Visit Diagnoses Not on filedocumented in this encounter Additional Health Concerns Assessment Noted Time PHQ-9 Depression Total Score: 21 024 1:39 PM EDT documented as of this encounter Care Teams Garnett Mechanic Relationship Specialty Start Date End Date Rylan Andrea MD [address] [place] [address] PCP - General Family Medicine 10/16/22 Rylan Andrea MD [address] [place] [address] PCP - [facility] 05/14/23 Marilu Craig NP [address] [place] [address] Nurse Practitioner Family Medicine 04/03/23 07/17/24 Nilsa Isidro NP [address] [place] [address] Nurse Practitioner Pulmonary Disease 04/03/23 Sanjuana Van LSW [address] [place] [address] Bottle Filler Family Medicine 06/18/23 Cindy Yeager OD [address] [place] [address] Referring Physician Optometry 10/31/23 Ophelia James, [address] [place] [address] Pulmonary Disease 01/10/24 documented as of this encounter
--- OUTSIDE RECORDS SUMMARY | 2025-02-13 12:12 | XMS_ITS | Encounter Summary ---
Author Organization [facility] Address [address] [facility] [place] [address] Care Team Providers Care Art History Instructor Name Role Phone Rylan Andrea MD Primary Care Provider [phone] Marilu Craig STATIONARY EQUIPMENT MECHANIC Unavailable Nilsa Isidro STATIONARY EQUIPMENT MECHANIC Unavailable Morenita Gomes RN Unavailable Sanjuana Van QUANTITATIVE MANAGER Unavailable Cindy Yeager OD Unavailable Ophelia James DO Unavailable [phone] Rylan Andrea MD Unavailable [phone] Encounter Details Date Type Department Care Team (Late st Contact Info) Description 09/06/2023 Orders Only [facility] [address] [place] [address] Unallocated, Noms MD Kayleigh [address] [place] [address] Social History Tobacco Use Types Packs/Day Years [...] often do you attend chur ch or taoist services? Never 08/17/2023 Do you belong to [...] Recorded Patient Health Questionnaire-2 Score 6 04/12/2023 [employer] [employer] [facility] of Occupat ional Health - Occupational Stress [...] in a usp (including now)? Yes 08/17/2023 Sex and Gender [...] [facility] [address] [place] [address] Nilsa Isidro NP [address] [place] [address] documented as of this encounter Procedures Procedure Name Priority Date/Time Associated Diagnosis Comments CT ABDOMEN/PELVIS WITH CONTRAST Routine 09/06/2023 1:11 PM EDT documented in this encounter Results * CT ABDOMEN/PELVIS WITH CONTRAST (09/06/2023 1:11 PM EDT) Anatomical Region Laterality Modality Radiographic Anan ging us Noms Provider Unallocated MD COELLO XR PROCEDURES F inal Result documented in this encounter Visit Diagnoses Not on filedocumented in this encounter Additional Health Concerns Assessment Noted Time PHQ-9 Depression Total Score: 24 023 1:46 PM EST documented as of this encounter Care Teams Art History Instructor Relationship Specialty Start Date End Date Rylan Andrea MD [address] [place] [address] PCP - General Family Medicine 10/16/22 Rylan Andrea MD [address] [place] [address] PCP - [facility] 05/14/23 Marilu Craig NP [address] [place] [address] Nurse Practitioner Family Medicine 04/03/23 07/17/24 Nilsa Isidro NP [address] [place] [address] Nurse Practitioner Pulmonary Disease 04/03/23 Morenita Gomes, RN [address] [place] [address] Registered Nurse Family Medicine 06/18/23 12/14/23 Sanjuana Van LSW [address] [place] [address] Roofing Foreman Family Medicine 06/18/23 [place] [address] [place] [address] Referring Physician Optometry 10/31/23 Ophelia James, [address] [place] [address] Pulmonary Disease 01/10/24 documented as of this encounter
--- OUTSIDE RECORDS SUMMARY | 2025-02-13 12:12 | XMS_ITS | Clinical Summary ---
Author Organization [facility] Address [address] [place] [address] Phone Care Team Providers Care Financial Processing Clerk Name Role Phone Rylan Andrea MD Primary Care Provider Social History Tobacco Use Types Packs/Day Years [...] 11/29/2021 9:05 AM EDT Plan of Treatment Not on file Care Teams Financial Processing Clerk Relationship Specialty Start Date End Date Rylan Andrea MD [address] [place] [address] PCP - General 03/03/20
--- OUTSIDE RECORDS SUMMARY | 2025-02-13 12:12 | XMS_ITS | Encounter Summary ---
Author Organization [facility] Address [address] [facility] [place] [address] Care Team Providers Care Metaphysician Name Role Phone Rylan Andrea MD Primary Care Provider [phone] Marilu Craig ELECTRIC RANGE SERVICER Unavailable Nilsa Isidro ELECTRIC RANGE SERVICER Unavailable Morenita Gomes RN Unavailable Sanjuana Van PLASTIC BOAT BUFFER Unavailable Cindy Yeager OD Unavailable Ophelia James DO Unavailable [phone] Rylan Andrea MD Unavailable [phone] Encounter Details Date Type Department Care Team (Late st Contact Info) Description 09/06/2023 Abstract [facility] [address] [place] [address] Rylan Andrea MD [address] [place] [address] Social History Tobacco Use Types Packs/Day Years [...] often do you attend chur ch or hindu services? Never 08/17/2023 Do you belong to [...] Recorded Patient Health Questionnaire-2 Score 6 04/12/2023 [facility] of Occupat ional Health - Occupational Stress [...] [facility] [address] [place] [address] Nilsa Isidro NP [address] [place] [address] documented as of this encounter Visit Diagnoses Not on filedocumented in this encounter Additional Health Concerns Assessment Noted Time PHQ-9 Depression Total Score: 023 1:46 PM EST documented as of this encounter Care Teams Metaphysician Relationship Specialty Start Date End Date Rylan Andrea MD [address] [place] [address] PCP - General Family Medicine 10/16/22 Rylan Andrea MD [address] [place] [id number] PCP - [facility] 05/14/23 Marilu Craig NP [address] [place] [phone] Nurse Practitioner Family Medicine 04/03/23 07/17/24 Nilsa Isidro NP [address] [place] [address] Nurse Practitioner Pulmonary Disease 04/03/23 Morentia Gomes, ARTHUR [address] [place] [address] Registered Nurse Family Medicine 06/18/23 12/14/23 Sanjuana Van LSW [address] [place] [address] Refrigerated National Truck Driver Family Medicine 06/18/23 Cindy Yeager OD [address] [place] [address] Referring Physician Optometry 10/31/23 Ophelia James DO [address] [place] [address] Pulmonary Disease 01/10/24 documented as of this encounter
--- OUTSIDE RECORDS SUMMARY | 2025-02-13 12:12 | XMS_ITS | Encounter Summary ---
Author Organization [facility] Address [address] [facility] [place] [address] Care Team Providers Care Laborer Wrecking And Salvaging Name Role Phone Rylan Andrea MD Primary Care Provider [phone] Marilu Craig ELECTRIC MOTOR MECHANIC Unavailable Nilsa Isidro ELECTRIC MOTOR MECHANIC Unavailable Morenita Gomes RN Unavailable [phone] Sanjuana Van OBIEE REPORT DEVELOPER Unavailable Cindy Yeager OD Unavailable Ophelia James DO Unavailable [phone] Rylan Andrea MD Unavailable [phone] Encounter Details Date Type Department Care Team (Late st Contact Info) Description 09/06/2023 Abstract [facility] [address] [place] [address] Rylan Andrea MD [address] [place] [address] Social History Tobacco Use Types Packs/Day Years [...] often do you attend chur ch or islam services? Never 08/17/2023 Do you belong to [...] Recorded Patient Health Questionnaire-2 Score 6 04/12/2023 [facility] [place] of Occupat ional Health - Occupational Stress [...] in a alf (including now)? Yes 08/17/2023 Sex and Gender [...] [facility] [address] [place] [address] Nilsa Isidro NP [address] [place] [address] documented as of this encounter Visit Diagnoses Not on filedocumented in this encounter Additional Health Concerns Assessment Noted Time PHQ-9 Depression Total Score: 023 1:46 PM EST documented as of this encounter Care Teams Laborer Wrecking And Salvaging Relationship Specialty Start Date End Date Rylan Andrea MD [address] [place] [address] PCP - General Family Medicine 10/16/22 Rylan Andrea MD [address] [place] [id number] PCP - [facility] 05/14/23 Marilu Craig NP [address] [place] [phone] Nurse Practitioner Family Medicine 04/03/23 07/17/24 Nilsa Isidro NP [address] [place] [address] Nurse Practitioner Pulmonary Disease 04/03/23 Morenita Gomes, ARTHUR [address] [place] [address] Registered Nurse Family Medicine 06/18/23 12/14/23 Sanjuana Van LSW [address] [place] [address] Captain Room Service Family Medicine 06/18/23 Cindy Yeager OD [address] [place] [address] Referring Physician Optometry 10/31/23 Ophelia James DO [address] [place] [address] Pulmonary Disease 01/10/24 documented as of this encounter
--- OUTSIDE RECORDS SUMMARY | 2025-02-13 12:12 | XMS_ITS | Encounter Summary ---
Author Organization [facility] Address [address] [facility] [place] [address] Care Team Providers Care Solo Truck Driver Name Role Phone Rylan Andrea MD Primary Care Provider [phone] Marilu Craig NP Unavailable Nilsa Isidro AERIAL GUNNER SUPERINTENDENT Unavailable Sanjuana VanW Unavailable Cindy Yeager OD Unavailable Ophelia James DO Unavailable [phone] Rylan Andrea MD Unavailable [phone] Encounter Details Date Type Department Care Team (Late st Contact Info) Description 02/18/2024 Abstract [facility] [address] [place] [address] Marilu Craig NP [address] [facility] [address] [place] [address] Social History Tobacco Use Types Packs/Day Years [...] How often do you attend mormon or taoism serv ices? Never 11/12/2023 Do you belong [...] Recorded Patient Health Questionnaire-2 Score 6 02/04/2024 [facility] of Occupat ional Health - Occupational Stress [...] [facility] [address] [place] [address] Nilsa Isidro NP [address] [place] [address] documented as of this encounter Visit Diagnoses Not on filedocumented in this encounter Additional Health Concerns Assessment Noted Time PHQ-9 Depression Total Score: 024 1:39 PM EDT documented as of this encounter Care Teams Solo Truck Driver Relationship Specialty Start Date End Date Rylan Andrea MD [address] [place] [address] PCP - General Family Medicine 10/16/22 Rylan Andrea MD [address] [place] [address] PCP - [facility] 05/14/23 Marilu Craig NP [address] [place] [address] Nurse Practitioner Family Medicine 04/03/23 07/17/24 Nilsa Isidro NP [address] [place] [address] Nurse Practitioner Pulmonary Disease 04/03/23 Sanjuana Van LSW [address] [place] [address] Bricklayer Helper Family Medicine 06/18/23 Cindy Yeager OD [address] [place] [address] Referring Physician Optometry 10/31/23 Ophelia James DO [address] [place] [address] Pulmonary Disease 01/10/24 documented as of this encounter
--- OUTSIDE RECORDS SUMMARY | 2025-02-13 12:12 | XMS_ITS | Encounter Summary ---
Author Organization [facility] Address [address] [place] [address] Phone Care Team Providers Care Audio Operator Name Role Phone Rylan Andrea MD Primary Care Provider Encounter Details Date Type Department Care Team (Late st Contact Info) Description 08/04/2020 Orders Only [facility] [address] [place] [address] Conversion, Onbase Social History Tobacco Use Types [...] on filedocumented in this encounter Care Teams Audio Operator Relationship Specialty Start Date End Date Rylna Andrea MD [address] [place] [address] PCP - General 03/03/20 documented as of this encounter
--- OUTSIDE RECORDS SUMMARY | 2025-02-13 12:12 | XMS_ITS | Encounter Summary ---
Author Organization [facility] Address [address] [place] [address] Care Team Providers Care Night Shift Name Role Phone Rylan Andrea MD Primary Care Provider Marilu Craig GENETIC PHYSICIAN Unavailable Nilsa Isidro GENETIC PHYSICIAN Unavailable Sanjuana Van ABSENCE MANAGEMENT CONSULTANT Unavailable Cindy Yeager OD Unavailable Ophelia James DO Unavailable [phone] Rylan Andrea MD Unavailable [phone] Encounter Details Date Type Department Care Team (Late st Contact Info) Description 07/11/2024 External Result Encounter [facility] Unsolicited Manuel Varma DO [address] [place] [address] Social History Tobacco Use Types Packs/Day Years [...] Never 11/12/2023 How often do you attend religion or sabianism serv ices? Never 11/12/2023 Do you belong to any clubs o r organizations such as religion groups, unions, fraternal or athletic groups, or [...] Recorded Patient Health Questionnaire-2 Score 6 06/17/2024 [facility] [...] time in the past 12 m [facility], were you homeless or living in a [...] [facility] [address] [place] [id number] Nilsa Isidro NP [address] [place] [address] documented as of this encounter Procedures [...] Ellison Jr., D.O.07/11/2024 3:31 PM Dictation Location: [facility]-22 Transcribed By: PWS 07/11/24 1531 Dictated By: Victorino Ellison Jr, DO 07/11/24 1527 Signed By: <Electronically signed by Victorino Ellison Jr, DO in OV> 07/11/24 1531 Narrative 07/11/2024 3:34 PM EST [facility] [address] [address] [address] Scan Report Signed Patient: Kirill Echols MR#: [id number] 194 : 1965 Acct:[id number] Age/Sex: 59 / M ADM Date: 07/11/24 Loc: CT Room: Type: [facility] RCR Attending Dr: Manuel Varma II, DO Copies to: Manuel Varma II, DO Ordering Provider: Manuel Varma II, DO Date of Service: 07/11/24 CT/CT chest w con: C34.90 - Malignant neoplasm of unspecified part of unspec... ([id number]) CT/CT abdomen pelvis w con: C34.90 - [...] con Procedure Note Radiology, Radiologist, - 07/11/2024 [facility] [place] [address] [place] [address] CT Scan Report Signed Patient: Kirill Echols [facility]#: [id number] 194 : 1965Acct:[id number] Age/Sex: 59 / MADM Date: 07/11/24 Loc: CT Room:Type: [facility] RCR Attending Dr: Manuel Varma II DO Copies to: Manuel Varma II, DO Ordering Provider: Manuel Varma II, DO Date of Service: 07/11/24 CT/CT chest w con: C34.90 - Malignant neoplasmof unspecified part of unspec... ([id number]) CT/CT abdomen pelvis w con: C34.90 - [...] Ellison Jr., D.O.07/11/2024 3:31 PM Dictation Location: [facility]--22 Transcribed By: [facility] 07/11/24 1531 Dictated By: Victorino Ellison Jr, DO 07/11/24 1527 Signed By: <Electronically signed by Victorino Ellison Jr, DO inOV> 07/11/24 1531 Manuel Varma DO IMG CT PROCEDURES Final R esult documented in this encounter Visit Diagnoses Not on filedocumented in this encounter Additional Health Concerns Assessment Noted Time PHQ-9 Depression Total Score: 15 06/17/ 025 2:48 PM EST documented as of this encounter Care Teams Night Shift Relationship Specialty Start Date End Date Rylan Andrea MD [address] [place] [address] PCP - General Family Medicine 10/16/22 Rylan Andrea MD [address] [place] [id number] PCP - [facility] 05/14/23 Marilu Craig NP [address] [place] [id number] Nurse Practitioner Family Medicine 04/03/23 07/17/24 Nilsa Isidro GENETIC PHYSICIAN [address] [place] [address] Nurse Practitioner Pulmonary Disease 04/03/23 Sanjuana Van LSW [address] [place] [address] Label Designer Family Medicine 06/18/23 Cindy Yeager OD [address] [place] [address] Referring Physician Optometry 10/31/23 Ophelia James DO [address] [place] [address] Pulmonary Disease 01/10/24 documented as of this encounter
--- NOTE | 2025-02-13 12:17 | US_ITS ---
[place] [id number] Patient Name: TONI GERBER MRN: [id number] date: 1965 Sex: M Assigned Patient Location: CARD Current Patient Location: CARD Accession/Order Number: [id number] Exam Date: 02/13/2025 12:45 Report Date: 02/13/2025 14:40 At the request of: GRACIA SOLOMON NP Procedure: US right upper quadrant LIMITED ABDOMINAL ULTRASOUND: CLINICAL HISTORY: alcoholic liver disease, elevated liver enzymes, alcohol use COMPARISON: None TECHNIQUE: Grayscale and color Doppler images of the right upper quadrant organs were obtained. FINDINGS: Pancreas: Visualized portions appear unremarkable. Liver: No focal abnormality. Gallbladder: Unremarkable. CBD: 3.2 mm RT KIDNEY: No Hydronephrosis US/US right upper quadrant IMPRESSION: NO ACUTE PROCESS. . Impression dictated by: Victorino Ellison Jr., DSesarOSesar 02/13/2025 2:40 PM Dictation Location: [place] [address] Electronically authenticated by: [id number] Y Date: 02/13/2025 14:40
--- OUTSIDE RECORDS SUMMARY | 2025-02-13 12:19 | XMS_ITS | CCD ---
Author Organization [facility] Care Team Providers Care Beating Machine Operator Name Role Phone CUBA ESQUIVEL Unavailable Unavailable CUBA ESQUIVEL Unavailable Unavailable AHMED, MORGANAN Referring Unavailable JOSAFATMEDMORGANAN Primary Care Unavailable Rylan [...] Admit Provider MD Tez Irene Attending Provider [phone] MD Rylan Andrea Primary Care Provider DO Estela Varma II Other Provider MD Varghese Duval Referring Provider DO Estela Varma II Attending Provider MD Varghese Duval Referring Provider Adamowicz II, DO Estela J Attending Provider MD Rachid Chase Attending Provider MD Varghese Duval Attending Provider Adamowicz II, DO Estela Rosales Attending Provider [phone] MD Annette Guardado Other Provider MD Varghese Duval Referring Provider Rachid Chase Unavailable MD Rylan Andrea Primary Care Provider MD Varghese Duval Referring Provider Adamowicz II, DO Estela J Attending Provider YULY Solomon Attending Provider [phone] EMRE, DR CLAY Primary Care Unavailable ADAMOWICZ, ESTELA J Admitting Unavailable ADAMOWICZ, ESTELA J Attending Unavailable ADAMOWICZ, ESTELA J Consulting Unavailable ANDREA, DR CLAY Primary Care Unavailable ADAMOWICZ, ESTELA J Admitting Unavailable ADAMOWICZ, ESTELA J Attending Unavailable ADAMOWICZ, ESTELA J Consulting Unavailable ANDREA, DR CLAY Primary Care Unavailable ADAMOWICZ, ESTELA J Admitting Unavailable ADAMOWICZ, ESTELA J Attending Unavailable ADAMOWICZ, ESTELA J Consulting Unavailable CHAPLIN, DR MARCE Fernandez Consulting Unavailable NADEREErrol, DR [...] Care Provider MD Varghese Duval Referring Provider [phone] Kojo II, DO Estela Rosales Attending Provider KIKO Molina Emergency Provider MD Varghese Duval Referring Provider Kojo II, DO Estela Rosales Attending Provider MD Varghese Duval Referring Provider [phone] Kojo II, DO Estela Rosales Attending Provider Rylan Andrea MD Primary Care Provider [phone] Rafa CHARGE ATTENDANT, Marilu Unavailable Sanna ALMEIDA, Nilsa R Unavailable [phone] Eliseo GIBSON, Morenita Unavailable [phone] Carlota JIANG, Sanjuana Unavailable MD Rylan Andrea Primary Care Provider [phone] MD Varghese Duval Referring Provider [phone] Kojo II, DO Estela Rosales Attending Provider RYLAN ANDREA Referring Unavailable ANDREARYLAN Primary Care Unavailable RYLAN ANDREA Referring Unavailable RYLAN ANDREA Primary Care Unavailable MD Rylan Andrea Primary Care Provider [phone] DO Cathi Miranda Attending Provider [phone] Sanna ALMEIDA, Nilsa R Unavailable [phone] Shobha OD, Cindy Unavailable Ophelia James DO Unavailable [phone] Rylan Andrea MD Unavailable [phone] Eliseo GIBSON, Morenita Unavailable [phone] Cindy العلي MD Unavailable Emre HANEY, Rylan Flaherty Primary Care Provider Manpreet SALEEM Attending Unavailable Carlota Sanjuana JIANG Unavailable Cathi Miranda Attending Unavailable Andrea, Rylan [...] R Attending Unavailable WARCHOL, MARILU Attending Unavailable Allergies Allergy Classification Reported Allergen(s) Allergy Type Date of Onset Reaction(s) Facility (4 sources) chlordiazePOXID E; Translations: [Librium] Drug Allergy Unknown [facility] Repository (20 sources) Lisinopril; Translations: [lisinopril] Drug Allergy 1 Other (See Comments), [facility] (20 sources) Sertraline; Translations: [sertraline] Drug Allergy 2 [facility] (20 sources) chlordiazePOXID E; Translations: [chlordiazepoxi de] Drug Allergy 3 [facility] (1 source) Amino Acids Drug Allergy [facility] Repository (1 source) Sertraline Drug Allergy 2 [facility] Repository (20 sources) Lisinopril Allergy to substance 3 [facility] [place] (1 source) Lisinopril Drug Allergy 4 [facility] Repository Medications Current Medications Medication [...] 1 tablet Orally Once a day Active diclofenac sodium 75 mg delayed release oral tablet (3 sources) Nonsteroidal Anti-inflammatory Drug take 1 tablet by mouth in the morning diclofenac (Voltaren) 75 MG EC tablet Take 75 mg by mouth in the morning and 75 mg before bedtime. Do not crush, chew, or split. Given by ER . Active 30 actuat fluticasone furoate 0.1 mg/actuat / umeclidinium 0.0625 mg/actuat / vilanterol 0.025 mg/actuat dry powder inhaler (20 sources) Anticholinergic, Corticosteroid, beta2-Adrenergic Agonist Start: 02-08-20 Fluticasone-Umecl idin-Vilanter (Trelegy Ellipta) 100-62.5-25 mcg blister with device Active 1 INH INHALATION Daily February 07, 2024 11:00pm Start: 02-08-2024 Fluticasone-Um eclidin-Vilanter (Trelegy Ellipta) 100-62.5-25 mcg blister with device Active 1 INH INHALATION Daily February 08, 2024 12:00am Start: 01-10-2024 End: 01-13-2025 take 1 puff(s) by inhalation once daily Urrdidyoveg-Fclncqkmh-Yjyqcq (Trelegy Ellipta) 100-62.5-25 MCG/ACT aerosol powder Indications: Chronic obstructive pulmonary disease, unspecified COPD type (HCC) Inhale 1 puff Daily 60 each 01/13/2025 Active Start: 07-26-2020 End: 08-17-2020 Nchpmlaneue-Kfhlglcow-Pxfirz er (Trelegy Ellipta) 100-62.5-25 mcg Blister With Device Discontinued 1 INH INHALATION Daily July 25, 2020 11:00pm August 17, 2020 8:43am Start: 07-26-2020 End: 08-17-2020 Lhgtllwbipr-Czgdakdnb-Yosuhs er (Trelegy Ellipta) 100-62.5-25 mcg Blister With [...] tablet Discontinued 40 MG PO Every morning 60 December 30, 2019 8:57am May 03, 2020 11:01am take for ankle swelling Start: 11-25-2019 End: 12-01-2019 take 1 tablet by mouth once daily Furosemide (Lasix) 20 mg Tablet Discontinued 20 MG PO Daily November 24, 2019 11:00pm December 01, 2019 12:54pm take for ankle swelling levothyroxine sodium 0.1 mg oral tablet (20 sources) l-Thyroxine Start: 09-08-2023 End: 07-12-2025 take 1 tablet by mouth before mealtime levothyroxine (Synthroid, Levoxyl) 100 MCG tablet Indications: 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 Take before meals. 30 tablet 5 01/13/2025 07/12/2025 Active melatonin 3 mg oral tablet (20 sources) Start: 10-29-2023 End: 01-06-2026 melatonin 3 MG tablet Indications: Primary insomnia [...] 06, 2020 12:00am August 17, 2020 8:43am 12 hr orphenadrine citrate 100 mg extended release oral tablet (3 sources) Muscle Relaxant take 1 tablet by mouth twice daily as needed for muscle spasms, then take 1 tablet by mouth every twelve hours as needed for muscle spasms orphenadrine (Norflex) 100 MG 12 hr tablet Take 100 mg by mouth 2 (two) times a day as needed for muscle spasms Do not crush, chew, or split. Given by ER Active pantoprazole 40 mg delayed release oral tablet (20 sources) Proton Pump Inhibitor Start: pantoprazole (ProtoNix) 40 MG EC tablet Daily 02/18/2024 Active Start: 09-08-2023 End: 01-15-2024 take 1 tablet by mouth before mealtime pantoprazole (ProtoNix) 40 MG EC tablet Take 40 mg by mouth in the morning. Take before meals. 09/08/2023 01/15/2024 Discontinued polyethylene glycol 3350 57095 mg powder for oral solution (20 sources) [...] Start: 04-10-2022 take 2 tablets by mo ut once daily at bedtime Quetiapine 100 mg [...] mouth every six hours for pain HYDROcodone-acetaminophen (Spiro) 5-325 MG tablet Indications: Generalized abdominal pain [...] tab #100 RF zero given on 12/29 [id number] actuat albuterol 0.09 mg/actuat metered dose [...] (Bisacodyl)) 10 mg Suppository Discontinued 10 MG DE Q24H as needed for Constipation August 16, [...] 9:51am docusate sodium 50 mg / sennosides, long term 8.6 mg oral tablet (20 sources) Start: 11-29-2019 End: 06-06-2020 take 1 tablet by mouth twice daily as needed for constipation Sennosides-Docusate Sodium (Senexon-S) 8.6-50 mg tablet Discontinued 1 TAB PO Twice daily as needed for constipation December 01, 2019 12:23pm June 06, 2020 3:22pm escitalopram 5 mg oral tablet (20 sources) Serotonin Reuptake Inhibitor Start: 09-15-2024 End: 09-02-2025 take 1 tablet by mouth once daily [...] 2:24pm loperamide hydrochloride 2 mg oral tablet (18 [...] same time. 09/15/2024 Discontinued (Therapy completed) nystatin [id number] unt/ml oral suspension (18 sources) Polyene Antifungal [...] Tablet Discontinued 2 TAB PO Twice daily August 03, 2020 12:00am August 17, 2020 [...] 01, 2020 1:45pm take [address] [facility] at bedtime Zolpidem Tartrate 5 MG (Schedule IV Drug) TAKE 2 TABLETS BY MOUTH AT BEDTIME FOR DIFFICULTY SLEEPING Oral for 21 Not-Taking Problems Active Problems Problem Classification Problem Date Documented Da te Episodic/Chronic Abdominal pain (20 sources) Abdominal pain; Translations: [Unspecified abdominal pain] Onset: 4 Resolved: 4 05-16-2020 Episodic Acute myocardial infarction (20 sources) [...] s/p chemo & radiatio n. 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] Onset: 3 Episodic Other aftercare (4 sources) Encounter for follow-up examination after completed treatment for conditions other than malignant neoplasm; Translations: [Unspecified follow-up examination] 01-15-2024 Episodic Other aftercare (2 sources) Removal of sutures done; Translations: [Encounter for removal of sutures] 07-14-2024 Episodic Other and ill-defined heart disease (4 sources) Right atrial enlargement; Translations: [Cardiomegaly] 02-03-2025 Chronic Other and ill-defined heart disease (4 sources) Right cardiac ventricular dilatation; Translations: [Cardiomegaly] 02-03-2025 Chronic Other gastrointestinal disorders (20 sources) Constipation; Translations: [Constipation, unspecified] 09-02-2020 Episodic Other gastrointestinal disorders (15 sources) Diarrhea, unspecified; Translations: [Diarrhea] 02-27-2022 Episodic Other gastrointestinal disorders (2 sources) Constipation, unspecified; Translations: [Constipation, unspecified] 01-31-2024 Episodic Other inflammatory condition of skin (3 sources) Erythema of skin; Translations: [Other specified erythematous conditions] 06-16-2024 Episodic Other liver diseases (20 sources) Elevated liver enzymes level; Translations: [Abnormal levels of other serum enzymes] Onset: 9 10-19-2022 Episodic Other lower respiratory disease (3 sources) [...] dependence, cigarettes, uncomplicated] Onset: 3 09-25-2022 Chronic Unclassified (1 source) Unknown / UNK(Unknown) Onset: 8 Unclassified (1 source) CONTACT W/AND (SUSP) EXPOS COVID-19; Translations: [CONTACT W/AND (SUSP) EXPOS COVID-19] Onset: 2 Unclassified (4 sources) Patient on antidepressant monitoring plan Onset: 5 09-15-2024 Past or Other Problems Problem Classification Problem Date Documented Da te Episodic/Chronic Administrative/social admission (20 sources) Patient encounter status; [...] Onset: 04-03-2024 Resolved: 04-03-2024 01-31-2024 Episodic Other nervous system disorders (20 sources) [...] Episodic Other nutritional; endocrine; and metabolic disorders (10 sources) Weight decreased; Translations: [Abnormal weight loss] [...] ideations] Onset: 11-08-2023 Resolved: 11-08-2023 11-18-2019 Episodic Thyroid disorders (20 sources) Hypothyroidism; Translations: [Hypothyroidism, unspecified] Onset: 12-21-2023 Resolved: 01-02-2024 01-02-2024 Chronic Urinary tract infections (2 sources) Urinary tract infectious disease; Translations: [Urinary tract infection, site not specified] 12-25-2023 Episodic Results Test Name Value Interpretation Reference Range Facility ALL T3 FREEon 11-26-2024 Free T3 [Mass/Vol] 2.1 pg/mL Low 2.18 - 3. 98 pg/mL [facility] Interpretation and review of laboratory results Abnormal [facility] ALL THYROID STIM HORMONEon 0 11-26-2024 TSH Qn 2.572 m[IU]/L [facility] No Panel Informationon 11-26 [facility] CBC W Auto Differential pane l (Bld)on 07-11-2024 Basophils/100 WBC Manual cnt (Syn fld) 0.8 % . [facility] Eosinophils/100 WBC Manual cnt (Syn fld) 4 % . [facility] Lymphocytes/100 WBC Manual cnt (Syn fld) 11.2 % . [facility] MCHC (RBC) [Mass/Vol] 33.7 g/dL 32.5 - 35.6 g/dL [facility] Monocytes+Macrophages /100 WBC Manual cnt (Syn fld) 6.5 % . [facility] Neutrophils/100 WBC Manual cnt (Syn fld) 77.5 % . [facility] NRBC 0 /100{WBC} 0 - 0.5 /100{WBC} [facility] RBC LM.HPF (Urine sed) [#/Area] 4.34 10*6/uL 3.90 - 5.60 10*6/uL [facility] WBC LM.HPF (Urine sed) [#/Area] 9.5 10*3/uL 4.1 - 10.5 10*3/uL [facility] CT abdomen pelvis w conon CT abdomen pelvis w [facility] [place] [address] [place] [address] CT Scan Report Signed Patient: Kirill Echols MR#: [id number] : 1965 Acct:[id number] Age/Sex: 59 / M ADM Date: 07/11/24 Loc: CT Room: Type: [facility] RCR Attending Dr: Estela Varma II DO Copies to: Estela Varma II, DO Ordering Provider: Estela Varma II, DO Date of Service: 07/11/24 CT/CT chest w con: C34.90 - Malignant neoplasm of unspecified part of unspec... ([id number]) CT/CT abdomen pelvis w con: C34.90 - [...] disease. Impression dictated by: Victorino Ellison Jr., Wesley07/11/2024 3:31 PM Dictation Location: [place] [address] Transcribed By: [facility] 07/11/24 1531 Dictated By: Victorino Ellison Jr, DO 07/11/24 1527 Signed By: 07/11/24 1531 Normal [facility] Complete Blood Count Auto Di ffon 07-11-2024 Basophils (Bld) [#/Vol] 0.1 10*3/uL Normal 0.0-0.2 [facility] Comment on above: Result Comment: PERF ORMED BY: [place] [address] PATHOLOGIST SITECORE DEVELOPER GRANT REGAN M.D. Performed By: #### C BC #### [address] Basophils/100 WBC (Bld) 0.8 % Normal . [facility] Comment on above: Performed By: #### C BC #### [place] [address] [place] Eosinophils (Bld) [#/Vol] 0.4 10*3/uL Normal 0.0-0.45 [facility] Comment on above: Performed By: #### C BC #### [address] Eosinophils/100 WBC (Bld) 4.0 % Normal . [facility] Comment on above: Performed By: #### C BC #### [address] Erythrocyte distribution width (RBC) [Ratio] 16.2 % High 12.0-14.8 [facility] Comment on above: Performed By: #### C BC #### [address] Hematocrit (Bld) [Volume fraction] 41.1 % Normal 38.8-50.0 [facility] Comment on above: Performed By: #### C BC #### [address] Hemoglobin (Bld) [Mass/Vol] 13.8 g/dL Normal 13.0-17.0 [facility] Comment on above: Performed By: #### C BC #### [address] Lymphocytes (Bld) [#/Vol] 1.1 10*3/uL Normal 1.00-4.8 [facility] Comment on above: Performed By: #### C BC #### [address] Lymphocytes/100 WBC (Bld) 11.2 % Normal . [facility] Comment on above: Performed By: #### C BC #### [address] MCH (RBC) [Entitic mass] 31.9 pg Normal 27.5-35.2 [facility] Comment on above: Performed By: #### C BC #### [address] MCV (RBC) [Entitic vol] 94.7 fL Normal 83.5-101 [facility] Comment on above: Performed By: #### C BC #### [address] Mean Corpuscular HGB Conc 33.7 g/dL Normal 32.5-35.6 [facility] Comment on above: Performed By: #### C BC #### [address] Monocytes (Bld) [#/Vol] 0.6 10*3/uL Normal 0.0-0.8 [facility] Comment on above: Performed By: #### C BC #### [address] Monocytes/100 WBC (Bld) 6.5 % Normal . [facility] Comment on above: Performed By: #### C BC #### [address] Neutrophils (Bld) [#/Vol] 7.4 10*3/uL Normal 1.8-7.7 [facility] Comment on above: Performed By: #### C BC #### [address] Neutrophils/100 WBC (Bld) 77.5 % Normal . [facility] Comment on above: Performed By: #### C BC #### [address] NRBC% 0.0 /100{WBC} Normal 0-0.5 [facility] Comment on above: Performed By: #### C BC #### [address] Platelet mean volume (Bld) [Entitic vol] 7.4 fL Normal 6.6-10.1 [facility] Comment on above: Performed By: #### C BC #### [address] Platelets (Bld) [#/Vol] 180 10*3/uL Normal 150-450 [facility] Comment on above: Performed By: #### C BC #### [address] RBC (Bld) [#/Vol] 4.34 10*6/uL Normal 3.90-5.60 [facility] Comment on above: Performed By: #### C BC #### [address] WBC (Bld) [#/Vol] 9.5 10*3/uL Normal 4.1-10.5 [facility] Comment on above: Performed By: #### C BC #### [address] Comprehensive Metabolic Pane nicolas 07-11-2024 Albumin [Mass/Vol] 4.0 g/dL Normal 3.5-5.7 [facility] Comment on above: Order Comment: STAT FOR CT Performed By: #### C MP #### [address] Albumin/Globulin [Mass ratio] 1.3 {ratio} Normal [facility] Comment on above: Order Comment: STAT FOR CT Performed By: #### C MP #### [address] ALP [Catalytic activity/Vol] 113 U/L High 34-104 [facility] Comment on above: Order Comment: STAT FOR CT Performed By: #### C MP #### [address] ALT [Catalytic activity/Vol] 9 U/L Normal 7-52 [facility] Comment on above: Order Comment: STAT FOR CT Performed By: #### C MP #### [address] Anion gap [Moles/Vol] 11.5 mmol/L Normal 6.0-15.0 [facility] Comment on above: Order Comment: STAT FOR CT Performed By: #### C MP #### [address] AST [Catalytic activity/Vol] 12 U/L Low 13-39 [facility] Comment on above: Order Comment: STAT FOR CT Performed By: #### C MP #### [address] Bilirubin [Mass/Vol] 0.4 mg/dL Normal 0.3-1.0 [facility] Comment on above: Order Comment: STAT FOR CT Performed By: #### C MP #### [address] Calcium [Mass/Vol] 8.9 mg/dL Normal 8.6-10.3 [facility] Comment on above: Order Comment: STAT FOR CT Performed By: #### C MP #### [address] Chloride [Moles/Vol] 107 mmol/L Normal 98-107 [facility] Comment on above: Order Comment: STAT FOR CT Performed By: #### C MP #### [address] CO2 [Moles/Vol] 22.1 mmol/L Normal 21.0-31.0 [facility] Comment on above: Order Comment: STAT FOR CT Performed By: #### C MP #### [address] Creatinine [Mass/Vol] 1.52 mg/dL High 0.70-1.30 [facility] Comment on above: Order Comment: STAT FOR CT Performed By: #### C MP #### [address] Creatinine Clr Calc Pharmacy 51.70 Normal [facility] Comment on above: Order Comment: STAT FOR CT Result Comment: PERF ORMED BY: [place] [address] PATHOLOGIST SITECORE DEVELOPER GRANT REGAN M.D. Performed By: #### C MP #### [address] Estimated GFR 52.458 mL/Min Normal [facility] Comment on above: Order Comment: STAT FOR CT Performed By: #### C MP #### [address] Globulin (S) [Mass/Vol] 3.1 g/dL Normal [facility] Comment on above: Order Comment: STAT FOR CT Performed By: #### C MP #### [address] Glucose [Mass/Vol] 73 mg/dL Normal 70-100 [facility] Comment on above: Order Comment: STAT FOR CT Result Comment: [place] Glucose Reference Range is dependent on time and content of last meal. Glucose of more than 200 mg/dL in a nonstressed, ambulatory subject supports the diagnosis of Diabetes Mellitus. ADA recommended reference range Performed By: #### C MP #### [facility] [address] [place] [id number] [facility] Potassium [Moles/Vol] 3.6 mmol/L Normal 3.5-5.1 [facility] Comment on above: Order Comment: STAT FOR CT Performed By: #### C MP #### [facility] [address] [place] [id number] [facility] Protein [Mass/Vol] 7.1 g/dL Normal 6.4-8.9 [facility] Comment on above: Order Comment: STAT FOR CT Performed By: #### C MP #### [facility] [address] Sodium [Moles/Vol] 137 mmol/L Normal 136-145 [facility] Comment on above: Order Comment: STAT FOR CT Performed By: #### C MP #### [facility] [address] [place] [id number] [facility] Urea nitrogen [Mass/Vol] 17 mg/dL Normal 7-25 [facility] Comment on above: Order Comment: STAT FOR CT Performed By: #### C MP #### [facility] [address] [place] [id number] [facility] Comprehensive metabolic pane nicolas 07-11-2024 Albumin [Mass/Vol] 4 g/dL 3.5 - 5.7 g/dL [facility] Albumin/Globulin [Mass ratio] 1.3 {ratio} [facility] ALP [Catalytic activity/Vol] 113 U/L High 34 - 104 U/L [facility] ALT [Catalytic activity/Vol] 9 U/L 7 - 52 U/L [facility] Anion gap [Moles/Vol] 11.5 mmol/L 6.0 - 15.0 meq/L [facility] AST [Catalytic activity/Vol] 12 U/L Low 13 - 39 U/L [facility] Bilirubin [Mass/Vol] 0.4 mg/dL 0.3 - 1 .0 mg/dL [facility] Calcium [Mass/Vol] 8.9 mg/dL 8.6 - 10. 3 mg/dL [facility] Chloride [Moles/Vol] 107 mmol/L 98 - 10 7 mmol/L [facility] CO2 [Moles/Vol] 22.1 mmol/L 21.0 - 31.0 mmol/L [facility] Creatinine (U) [Mass/Vol] 1.52 mg/dL High 0.70 - 1.30 mg/dL [facility] CREATININE CLR CALC PHARMACY 51.7 [facility] GFR/1.73 sq M.predicted MDRD (S/P/Bld) [Vol rate/Area] 52.458 mL/min/{1.73_m2} mL/Min [facility] Globulin (S) [Mass/Vol] 3.1 g/dL [facility] Glucose [Mass/Vol] 73 mg/dL 70 - 100 mg/dL [facility] Comment on above: Random Glucose Refer ence Range is dependent on time and content of last meal. Glucose of more than 200 mg/dL in a nonstressed, ambulatory subject supports the diagnosis of Diabetes Mellitus. ADA recommended reference range Potassium [Moles/Vol] 3.6 mmol/L 3.5 - 5.1 mmol/L [facility] Protein [Mass/Vol] 7.1 g/dL 6.4 - 8.9 g/dL [facility] Sodium [Moles/Vol] 137 mmol/L 136 - 145 mmol/L [facility] Urea nitrogen [Mass/Vol] 17 mg/dL 7 - 25 mg/dL [facility] STAT FOR CT [facility] No Panel Informationon 07-11 Interpretation and review of laboratory results Abnormal [facility] [place] [address] Ultrasound Report Signed Patient: KIRILL ECHOLS MR#: [id number] : 1965 Acct:[id number] Age/Sex: 59 / M ADM Date: 07/08/24 Loc: US Attending Dr: Marilu Bonner CHARGE ATTENDANT Ordering Physician: Marilu Bonner NP Date of Service: 07/08/24 Procedure(s): US thyroid Accession Number(s): [id number] cc: RYLAN ANDREA ; Marilu Bonner NP [place] [id number] Patient Name: KIRILL ECHOLS MRN: [id number] date: 1965 Sex: M Assigned Patient Location: [place] Current Patient Location: [place] Accession/Order Number: [id number] Exam Date: 07/08/2024 13:54 Report Date: 07/08/2024 [...] Ashley Velasquez M.D.07/08/2024 1:59 PM Dictation Location: [place] [address] Electronically authenticated by: [id number] Y Date: 07/08/2024 13:59 Dictated By: Ashley Velasquez M.D. Signed By: 07/08/24 1401 DD/ 1359 TD/TT: Network Diagnostic Support Specialist: [facility] Radiology, Radiologi MD gonzalez - 07/08/2024 The [place] [id number] Ultrasound Report Signed Patient: KIRILL ECHOLS MR#: [id number] : 1965 Acct:[id number] Age/Sex: 59 / M ADM Date: 07/08/24 Loc: US Attending Dr: Marilu Bonner NP Ordering Physician: Marilu Bonner NP Date of Service: 07/08/24 Procedure(s): US thyroid Accession Number(s): [id number] cc: RYLAN ANDREA ; Marilu Bonner NP The [address] [address] Patient Name: KIRILL ECHOLS MRN: [facility]:[id number] date: 1965 Sex: M Assigned Patient Location: [place] Current Patient Location: [place] Accession/Order Number: [id number] Exam Date: 07/08/2024 13:54 Report Date: 07/08/2024 [...] Ashley Velasquez M.D.07/08/2024 1:59 PM Dictation Location: [employer] Electronically authenticated by: [id number] Y Date: 07/08/2024 13:59 Dictated By: Ashley Velasquez M.D. Signed By: 07/08/24 1405 DD/ 1359 TD/TT: Network Diagnostic Support Specialist: [facility] Radiology Study observation (narrative) [facility] US Thyroid glandOrdered By: Radiologist Radiology on 07-08-2024 [facility] Work Phone: No Panel Informationon 07-07 [facility] Skin excisionon 07-07-2024 Lesion length (cm): 1.6 [...] 3.0 ml Estimated blood loss: 2.0 ml [facility] Skin repairon 07-07-2024 Complexity: Intermed iate Final [...] uncontrollable bleeding, or complications. Dressing type: bandage [facility] ALL CBC WITH AUTO DIFFon BASOPHILS ABSOLUTE AUTO 0.1 [facility] Basophils/100 WBC (Bld) 1.2 % 0.2 - 2.0 % [facility] Eosinophils/100 WBC (Bld) 7.1 % High 0.9 - 7.0 % [facility] Erythrocyte distribution width (RBC) [Ratio] 16.7 % High 11.0 - 15.0 % [facility] Hematocrit (Bld) [Volume fraction] 40.3 % Low 42.0 - 54.0 % [facility] Hemoglobin (Bld) [Mass/Vol] 13.6 g/dL Low 14.0 - 18.0 g/dL [facility] IMMATURE GRANULOCYTES ABS AUTO 0.01 [facility] Immature granulocytes/100 WBC (Bld) 0.1 % 0.0 - 0.5 % [facility] Interpretation and review of laboratory results Abnormal [facility] LYMPHOCYTES ABSOLUTE AUTO 1.8 [facility] Lymphocytes/100 WBC (Bld) 26.3 % 20.5 - 60.0 % [facility] MCH (RBC) [Entitic mass] 30.9 pg 25.9 - 34.0 pg [facility] MCHC (RBC) [Mass/Vol] 33.7 g/dL 29.9 - 35.2 g/dL [facility] MCV (RBC) [Entitic vol] 91.6 fL 80.0 - 94.0 fL [facility] MONOCYTES ABSOLUTE AUTO 0.7 [facility] Monocytes/100 WBC (Bld) 9.9 % 1.7 - 12.0 % [facility] NEUTROPHILS ABSOLUTE AUTO 3.8 [facility] Neutrophils/100 WBC (Bld) 55.4 % 43.0 - 75.0 % [facility] Platelet mean volume (Bld) [Entitic vol] 9 fL Low 9.5 - 13.5 fL [facility] TBH EO # 0.5 [facility] TB PLT 222 [facility] RBC 4.4 Low [facility] TB WBC 6.9 [facility] CLINISYNC [facility] METRO IRON AND TIBCon 2024 TB IRON 90 ug/dL 65.0 - 175.0 ug/dL [facility] TB PERCENT IRON SATURATION 36 % [facility] TOTAL IRON BINDING CAPACITY 250 ug/dL 250.0 - 450.0 ug/dL [facility] Amp[facility] Screen Ql (U)Ord ered By: Cathi Miranda on 02-18-2024 Amphetamines Ql (U) Negative Negative [facility] Barbiturates [Presence] in U rine by Screen methodOrdered By: Cathi Miranda on 02-18-2024 Barbiturates Screen Ql (U) Negative Negative [facility] Benzodiazepines Screen Ql (U )Ordered By: Cathi Miranda on 02-18-2024 Benzodiazepines Ql (U) Negative Negative [facility] Benzoylecgonine [Presence] i n Urine by Screen methodOrdered By: Cathi Miranda on 02-18-2024 Benzoylecgonine Screen Ql (U) Negative Negative [facility] Cannabinoids [Presence] in U rine by Screen methodOrdered By: Cathi Miranda on 02-18-2024 Cannabinoids Screen Ql (U) Positive High Negative [facility] Comment on above: These are unconfirme d results and should not be used for legal purposes. Drug Cut-Off Concentration: AMPH 1000 ng/mL ZUNILDA 200 ng/mL SHIVANI 200 ng/mL COCM 300 ng/mL OP 300 ng/mL PCP 25 ng/mL THC 20 ng/mL Drug Screen,Urineon 02-18-20 Amphetamine Screen,Urine Negative Normal Negative [facility] Comment on above: Performed By: #### U RDS #### [address] Barbiturate Screen,Urine Negative Normal Negative [facility] Comment on above: Performed By: #### U RDS #### [address] Benzodiazepines Screen,Urine Negative Normal Negative [facility] Comment on above: Performed By: #### U RDS #### [address] Cannabinoid Screen,Urine Positive High Negative [facility] Comment on above: Result Comment: Thes e are unconfirmed results and should not be used for legal purposes. Drug Cut-Off Concentration: AMPH 1000 ng/mL ZUNILDA 200 ng/mL SHIVANI 200 ng/mL COCM 300 ng/mL OP 300 ng/mL PCP 25 ng/mL THC 20 ng/mL PERFORMED BY: [place] [address] PATHOLOGIST SITECORE DEVELOPER CATY DELCID M.D. Performed By: #### U RDS #### [place] [address] [place] Cocaine Screen,Urine Negative Normal Negative [facility] Comment on above: Performed By: #### U RDS #### [place] [address] [place] Opiate Screen,Urine Negative Normal Negative [facility] Comment on above: Performed By: #### U RDS #### [place] [address] [place] Phencyclidine Screen,Urine Negative Normal Negative [facility] Comment on above: Performed By: #### U RDS #### [facility] [address] Opiates [Presence] in Urine by Screen methodOrdered By: Cathi Miranda on 02-18-2024 Opiates Screen Ql (U) Negative Negative [facility] Pathology Request for Lab Co rpon 02-18-2024 Pathology Request for Lab [place] Normal [facility] Comment on above: Order Comment: PATHO LOGY GI SPECIMEN Result Comment: See report. Scanned copy available in EMR. PERFORMED BY: [facility] [address] [facility] [place] [address] PATHOLOGIST SITECORE DEVELOPER CATY DELCID M.D. Performed By: #### P ATH TO [facility] #### [facility] [address] Phencyclidine Screen Ql (U)O rdered By: Cathi Miranda on 02-18-2024 Phencyclidine Ql (U) Negative Negative [facility] Bacteria identified Cx Nom ( U)on 12-27-2023 Appearance (U) Adequate [facility] Internal identifier for Provider [id number] [facility] Specimen source Nom (Unsp spec) URINE, CLEAN CATCH [facility] Healthcare STATUS FINAL [facility] Performing Organizat ion Information Site ID: QPT Name: [employer] [facility] Address: [address] [place] [address], [address] [place] [id number] Director: Jose Luis Lam MD [facility] - Microbiology an d Antimicrobial susceptibilityon 12-27-2023 Bacteria identified Cx Nom (U) SEE NOTE [facility] Comment on above: Mixed genital zaid isolated. These superficial bacteria are not indicative of a urinary tract infection. No further organism identification is warranted on this specimen. If clinically indicated, recollect clean-catch, mid-stream urine and transfer immediately to Urine Culture Transport Tube. Urinalysis macro (dipstick) panel (U)on 12-25-2023 Bilirubin, UA Negative Negative - 4(70) +++ mg/dL [facility] Blood, UA Positive Negative - 50 Alhaji/mcL [facility] Clarity, UA Clear [facility] Color, UA Yellow [facility] Glucose, UA Negative Negative - 2000(110) ++++ mg/dL [facility] Interpretation and review of laboratory results Abnormal [facility] Ketones, UA Negative Negative - 160(16) ++++ mg/dL [facility] Leukocytes, UA Moderate Negative - 500+++ Mc/mcL [facility] Nitrite, UA Negative Negative - Positive [facility] pH, UA 6.0 5 - 9 [facility] Protein, UA Positive Negative - 1999(20) ++++ mg/dL [facility] Spec Grav, UA 1.015 1 - 1.03 [facility] Urobilinogen, UA 0.2 0.2 - 12 mg/dL [facility] Alanine aminotransferase [En zymatic activity/volume] in Serum or PlasmaOrdered By: Estela Varma on 06-25-2023 ALT [Catalytic activity/Vol] 14 U/L 7-52 [facility] Albumin [Mass/volume] in Ser um or Plasma by Bromocresol green (BCG) dye binding methoOrdered By: Estela Varma on 06-25-2023 Albumin BCG dye [Mass/Vol] 3.9 g/dL 3.5-5.7 [facility] Alkaline phosphatase [Enzyma tic activity/volume] in Serum or PlasmaOrdered By: Estela Varma on 06-25-2023 ALP [Catalytic activity/Vol] 126 U/L 34-104 [facility] Amylase [Enzymatic activity/ volume] in Serum or PlasmaOrdered By: Estela Varma on 06-25-2023 Amylase [Catalytic activity/Vol] 52 U/L 29-103 [facility] Aspartate aminotransferase [ Enzymatic activity/volume] in Serum or PlasmaOrdered By: Estela Varma on 06-25-2023 AST [Catalytic activity/Vol] 30 U/L 13-39 [facility] Basophils Auto (Bld) [#/Vol] Ordered By: Estela Varma on 06-25-2023 Basophils (Bld) [#/Vol] 0.1 10*3/uL 0.0-0.2 [facility] Basophils/100 WBC Auto (Bld) Ordered By: Estela Varma on 06-25-2023 Basophils/100 WBC (Bld) 1.3 % . [facility] Bilirubin.total [Mass/volume ] in Serum or PlasmaOrdered By: Estela Varma on 06-25-2023 Bilirubin [Mass/Vol] 1.0 mg/dL 0.3-1.0 [facility] CARCINOEMBRYONIC ANTIGENon 0 06-25-2023 Interpretation and review of laboratory results Abnormal [facility] CBC W Auto Differential pane l (Bld)on 06-25-2023 Basophils (Bld) [#/Vol] 0.1 10*3/uL 0.0 - 0.2 10*3/uL [facility] Basophils/100 WBC Manual cnt (Syn fld) 1.3 % . [facility] Eosinophils (Bld) [#/Vol] 0.2 10*3/uL 0.0 - 0.45 10*3/uL [facility] Eosinophils/100 WBC Manual cnt (Syn fld) 2.5 % . [facility] Erythrocyte distribution width (RBC) [Ratio] 15.5 % High 12.0 - 14.8 % [facility] Hematocrit (Bld) [Volume fraction] 40.7 % 38.8 - 50.0 % [facility] Hemoglobin (Bld) [Mass/Vol] 13.7 g/dL 13.0 - 17.0 g/dL [facility] Interpretation and review of laboratory results Abnormal [facility] Lymphocytes (Bld) [#/Vol] 0.8 10*3/uL Low 1.00 - 4.8 10*3/uL [facility] Lymphocytes/100 WBC Manual cnt (Syn fld) 9.3 % . [facility] MCH (RBC) [Entitic mass] 32.9 pg 27.5 - 35.2 pg [facility] MCHC (RBC) [Mass/Vol] 33.7 g/dL 32.5 - 35.6 g/dL [facility] MCV (RBC) [Entitic vol] 97.6 fL 83.5 - 101 fL [facility] Monocytes (Bld) [#/Vol] 0.7 10*3/uL 0.0 - 0.8 10*3/uL [facility] Monocytes+Macrophages /100 WBC Manual cnt (Syn fld) 8.7 % . [facility] Neutrophils (Bld) [#/Vol] 6.5 10*3/uL 1.8 - 7.7 10*3/uL [facility] Neutrophils/100 WBC Manual cnt (Syn fld) 78.2 % . [facility] NRBC 0.2 /100{WBC} 0 - 0.5 /100{WBC} [facility] Platelet mean volume (Bld) [Entitic vol] 7.4 fL 6.6 - 10.1 fL [facility] Platelets (Bld) [#/Vol] 196 10*3/uL 150 - 450 10*3/uL [facility] RBC LM.HPF (Urine sed) [#/Area] 4.17 /[HPF] 3.90 - 5.60 [facility] WBC (Bld) [#/Vol] 8.4 10*3/uL 4.1 - 10.5 10*3/uL [facility] WBC LM.HPF (Urine sed) [#/Area] 8.4 10*3/uL 4.1 - 10.5 10*3/uL [facility] Calcium [Mass/volume] in Ser um or PlasmaOrdered By: Estela Varma on 06-25-2023 Calcium [Mass/Vol] 8.7 mg/dL 8.6-10.3 [facility] Carbon dioxide, total [Moles /volume] in Serum or PlasmaOrdered By: Estela Varma on 06-25-2023 CO2 [Moles/Vol] 23.2 mmol/L 21.0-31.0 [facility] Chloride [Moles/volume] in S coral or PlasmaOrdered By: Estela Varma on 06-25-2023 Chloride [Moles/Vol] 96 mmol/L 98-107 [facility] Creatinine [Mass/volume] in Serum or PlasmaOrdered By: Estela Varma on 06-25-2023 Creatinine [Mass/Vol] 0.70 mg/dL 0.70-1.30 [facility] Eosinophils Auto (Bld) [#/Vo l]Ordered By: Estela Varma on 06-25-2023 Eosinophils (Bld) [#/Vol] 0.2 10*3/uL 0.0-0.45 [facility] Eosinophils/100 WBC Auto (Bl d)Ordered By: Estela Varma on 06-25-2023 Eosinophils/100 WBC (Bld) 2.5 % . [facility] Erythrocyte distribution wid th Auto (RBC) [Ratio]Ordered By: Estela Varma on 06-25-2023 Erythrocyte distribution width (RBC) [Ratio] 15.5 % 12.0-14.8 [facility] Ferritin [Mass/volume] in Se rum or PlasmaOrdered By: Estela Varma on 06-25-2023 Ferritin [Mass/Vol] 207.7 ng/mL 23.9-336.2 [facility] Folate [Mass/volume] in Seru m or PlasmaOrdered By: Estela Varma on 06-25-2023 Folate [Mass/Vol] 9.6 ng/mL >5.9 [facility] Comment on above: Folate reference ran ge: >5.9 ng/mlThe WHO technical consultation on folate and vitamin f90uwynelmhaeis has determined that folate concentrations lessthan 4 ng/ml are considered deficient. GLUCOSE POCT GLUCOMETERSon 0 06-25-2023 Glucose [Mass/Vol] 97 mg/dL [facility] Comment on above: Random Glucose Refer ence Range is dependent on time and content of last meal. Glucose of more than 200 mg/dL in a nonstressed, ambulatory subject supports the diagnosis of Diabetes Mellitus. [facility] Globulin Calc (S) [Mass/Vol] Ordered By: Estela Varma on 06-25-2023 Globulin (S) [Mass/Vol] 3.0 g/dL [facility] Glucose Glucometer (BldC) [M ass/Vol]Ordered By: Estela Varma on 06-25-2023 Glucose [Mass/Vol] 97 mg/dL [facility] Comment on above: Random Glucose Refer ence Range is dependent on time and content of last meal. Glucose of more than 200 mg/dL in a nonstressed, ambulatory subject supports the diagnosis of Diabetes Mellitus. Glucose [Mass/volume] in Ser um or PlasmaOrdered By: Estela Varma on 06-25-2023 Glucose [Mass/Vol] 89 mg/dL 70-100 [facility] Comment on above: ADA recommended refe rence rangeRandom Glucose Reference Range is dependent on time and content of last meal. Glucose of more than 200 mg/dL in a nonstressed, ambulatory subject supports the diagnosis of Diabetes Mellitus. Hematocrit Auto (Bld) [Volum e fraction]Ordered By: Estela Varma on 06-25-2023 Hematocrit (Bld) [Volume fraction] 40.7 % 38.8-50.0 [facility] Hemoglobin [Mass/volume] in BloodOrdered By: Estela Varma on 06-25-2023 Hemoglobin (Bld) [Mass/Vol] 13.7 g/dL 13.0-17.0 [facility] Iron [Mass/volume] in Serum or PlasmaOrdered By: Estela Varma on 06-25-2023 Iron [Mass/Vol] 159 ug/dL 50-212 [facility] Iron binding capacity [Mass/ volume] in Serum or PlasmaOrdered By: Estela Varma on 06-25-2023 Iron binding capacity [Mass/Vol] 242 ug/dL 255-450 [facility] Iron saturation [Mass Fracti on] in Serum or PlasmaOrdered By: Estela Varma on 06-25-2023 Iron saturation [Mass fraction] 65.7 % 20-50 [facility] Leukocytes [#/volume] correc chris for nucleated erythrocytes in Blood by Automated counOrdered By: Estela Varma on 06-25-2023 WBC corrected for nucl RBC Auto (Bld) [#/Vol] 8.4 10*3/uL 4.1-10.5 [facility] Lipase [Enzymatic activity/v olume] in Serum or PlasmaOrdered By: Estela Varma on 06-25-2023 Lipase [Catalytic activity/Vol] 36.0 U/L 11.0-82.0 [facility] Lymphocytes Auto (Bld) [#/Vo l]Ordered By: Estela Varma on 06-25-2023 Lymphocytes (Bld) [#/Vol] 0.8 10*3/uL 1.00-4.8 [facility] Lymphocytes/100 WBC Auto (Bl d)Ordered By: Estela Varma on 06-25-2023 Lymphocytes/100 WBC (Bld) 9.3 % . [facility] MCH Auto (RBC) [Entitic mass ]Ordered By: Estela Varma on 06-25-2023 MCH (RBC) [Entitic mass] 32.9 pg 27.5-35.2 [facility] MCHC Auto (RBC) [Mass/Vol]Or dered By: Estela Varma on 06-25-2023 MCHC (RBC) [Mass/Vol] 33.7 g/dL 32.5-35.6 [facility] MCV Auto (RBC) [Entitic vol] Ordered By: Estela Varma on 06-25-2023 MCV (RBC) [Entitic vol] 97.6 fL 83.5-101 [facility] Monocytes Auto (Bld) [#/Vol] Ordered By: Estela Varma on 06-25-2023 Monocytes (Bld) [#/Vol] 0.7 10*3/uL 0.0-0.8 [facility] Monocytes/100 WBC Auto (Bld) Ordered By: Estela Varma on 06-25-2023 Monocytes/100 WBC (Bld) 8.7 % . [facility] Neutrophils Auto (Bld) [#/Vo l]Ordered By: Estela Varma on 06-25-2023 Neutrophils (Bld) [#/Vol] 6.5 10*3/uL 1.8-7.7 [facility] Neutrophils/100 WBC Auto (Bl d)Ordered By: Estela Varma on 06-25-2023 Neutrophils/100 WBC (Bld) 78.2 % . [facility] No Panel InformationOrdered By: Estela Varma on 06-25-2023 Estimated GFR (CKD-EPI) > 60.0 mL/Min [facility] Pharmacy Creatinine Clearance (Chem 108.93 [facility] Nucleated erythrocytes [Pres ence] in Blood by Automated countOrdered By: Estela Varma on 06-25-2023 Nucleated RBC Auto Ql (Bld) 0.2 /100{WBC} 0-0.5 [facility] Platelet mean volume Auto (B ld) [Entitic vol]Ordered By: Estela Varma on 06-25-2023 Platelet mean volume (Bld) [Entitic vol] 7.4 fL 6.6-10.1 [facility] Platelets Auto (Bld) [#/Vol] Ordered By: Estela Varma on 06-25-2023 Platelets (Bld) [#/Vol] 196 10*3/uL 150-450 [facility] Potassium [Moles/volume] in Serum or PlasmaOrdered By: Estela Varma on 06-25-2023 Potassium [Moles/Vol] 4.2 mmol/L 3.5-5.1 [facility] Protein [Mass/volume] in Ser um or PlasmaOrdered By: Estela Varma on 06-25-2023 Protein [Mass/Vol] 6.9 g/dL 6.4-8.9 [facility] RBC Auto (Bld) [#/Vol]Ordere d By: Estela Varma on 06-25-2023 RBC (Bld) [#/Vol] 4.17 10*6/uL 3.90-5.60 [facility] Serum or plasma albumin/glob ulin mass ratioOrdered By: Estela Varma on 06-25-2023 Albumin/Globulin [Mass ratio] 1.3 {ratio} [facility] Serum or plasma anion gap de terminationOrdered By: Estela Varma on 06-25-2023 Anion gap [Moles/Vol] 11.0 mmol/L 6.0-15.0 [facility] Serum or plasma carcinoembry onic antigen measurement (mass/volume)Ordered By: Estela Varma on 06-25-2023 Carcinoembryonic Ag [Mass/Vol] 9.4 ng/mL 0.0-3.0 [facility] Comment on above: Serial tumor marker results determined by assays using different manufacturers or methods may not be comparable.[facility] Laboratory manager of security and method:[employer] DXI, 2 SITE IMMUNOENZYMATIC SANDWICH ASSAY. Sodium [Moles/volume] in Ser um or PlasmaOrdered By: Estela Varma on 06-25-2023 Sodium [Moles/Vol] 126 mmol/L 136-145 [facility] Thyrotropin [Units/volume] i n Serum or PlasmaOrdered By: Estela Varma on 06-25-2023 TSH Qn 9.92 m[IU]/L 0.45-5.33 [facility] Thyroxine (T4) free [Mass/vo lume] in Serum or PlasmaOrdered By: Estela Varma on 06-25-2023 Free T4 [Mass/Vol] 0.71 ng/dL 0.61-1.12 [facility] Transferrin [Mass/volume] in Serum or PlasmaOrdered By: Estela Varma on 06-25-2023 Transferrin [Mass/Vol] 173 mg/dL 203-362 [facility] Urea nitrogen [Mass/volume] in Serum or PlasmaOrdered By: Estela Varma on 06-25-2023 Urea nitrogen [Mass/Vol] 5 mg/dL 7 [facility] Vitamin B12 ser/plasOrdered By: Estela Varma on 06-25-2023 Cobalamin (Vitamin B12) [Mass/Vol] 309 pg/mL 180-914 [facility] WBC Auto (Bld) [#/Vol]Ordere d By: Estela Varma on 06-25-2023 WBC (Bld) [#/Vol] 8.4 10*3/uL 4.1-10.5 [facility] Serum or plasma methylmalona te measurement (moles/volume)Ordered By: Estela Varma on 03-30-2023 Methylmalonate [Moles/Vol] 129 nmol/L 0-378 [facility] Comment on above: This test was develo ped and its performance characteristicsdetermined by [employer]. It has not been cleared orapproved by the Food and Drug Administration.Performed at: [address] [id number] Director: Loc De Jesus MD, Phone: [phone] METHYLMALONIC ACID AND HOMOC YSTEINEon 03-29-2023 [facility] Alanine aminotransferase [En zymatic activity/volume] in Serum or PlasmaOrdered By: Estela Varma on 12-22-2022 ALT [Catalytic activity/Vol] 13 U/L [facility] Albumin [Mass/volume] in Ser um or Plasma by Bromocresol green (BCG) dye binding methoOrdered By: Estela Varma on 12-22-2022 Albumin BCG dye [Mass/Vol] 3.7 g/dL 3.5-5.7 [facility] Alkaline phosphatase [Enzyma tic activity/volume] in Serum or PlasmaOrdered By: Estela Varma on 12-22-2022 ALP [Catalytic activity/Vol] 122 U/L 34-104 [facility] Aspartate aminotransferase [ Enzymatic activity/volume] in Serum or PlasmaOrdered By: Estela Varma on 12-22-2022 AST [Catalytic activity/Vol] 17 U/L 13-39 [facility] Basophils Auto (Bld) [#/Vol] Ordered By: Estela Varma on 12-22-2022 Basophils (Bld) [#/Vol] 0.1 10*3/uL 0.0-0.2 [facility] Basophils/100 WBC Auto (Bld) Ordered By: Estela Varma on 12-22-2022 Basophils/100 WBC (Bld) 1.3 % . [facility] Bilirubin.total [Mass/volume ] in Serum or PlasmaOrdered By: Estela Varma on 12-22-2022 Bilirubin [Mass/Vol] 0.5 mg/dL 0.3-1.0 [facility] Calcium [Mass/volume] in Ser um or PlasmaOrdered By: Estela Varma on 12-22-2022 Calcium [Mass/Vol] 8.0 mg/dL 8.6-10.3 [facility] Carbon dioxide, total [Moles /volume] in Serum or PlasmaOrdered By: Estela Varma on 12-22-2022 CO2 [Moles/Vol] 23.2 mmol/L 21.0-31.0 [facility] Chloride [Moles/volume] in S coral or PlasmaOrdered By: Estela Varma on 12-22-2022 Chloride [Moles/Vol] 100 mmol/L 98-107 [facility] Creatinine [Mass/volume] in Serum or PlasmaOrdered By: Estela Varma on 12-22-2022 Creatinine [Mass/Vol] 0.69 mg/dL 0.70-1.30 [facility] Eosinophils Auto (Bld) [#/Vo l]Ordered By: Estela Varma on 12-22-2022 Eosinophils (Bld) [#/Vol] 0.3 10*3/uL 0.0-0.45 [facility] Eosinophils/100 WBC Auto (Bl d)Ordered By: Estela Varma on 12-22-2022 Eosinophils/100 WBC (Bld) 5.0 % . [facility] Erythrocyte distribution wid th Auto (RBC) [Ratio]Ordered By: Estela Varma on 12-22-2022 Erythrocyte distribution width (RBC) [Ratio] 16.0 % 12.0-14.8 [facility] Globulin Calc (S) [Mass/Vol] Ordered By: Estela Varma on 12-22-2022 Globulin (S) [Mass/Vol] 2.3 g/dL [facility] Glucose Glucometer (BldC) [M ass/Vol]Ordered By: Estela Varma on 12-22-2022 Glucose [Mass/Vol] 71 mg/dL [facility] Comment on above: Random Glucose Refer ence Range is dependent on time and content of last meal. Glucose of more than 200 mg/dL in a nonstressed, ambulatory subject supports the diagnosis of Diabetes Mellitus. Glucose [Mass/volume] in Ser um or PlasmaOrdered By: Estela Varma on 12-22-2022 Glucose [Mass/Vol] 65 mg/dL 70-100 [facility] Comment on above: ADA recommended refe rence rangeRandom Glucose Reference Range is dependent on time and content of last meal. Glucose of more than 200 mg/dL in a nonstressed, ambulatory subject supports the diagnosis of Diabetes Mellitus. Hematocrit Auto (Bld) [Volum e fraction]Ordered By: Estela Varma on 12-22-2022 Hematocrit (Bld) [Volume fraction] 39.6 % 38.8-50.0 [facility] Hemoglobin [Mass/volume] in BloodOrdered By: Estela Varma on 12-22-2022 Hemoglobin (Bld) [Mass/Vol] 13.3 g/dL 13.0-17.0 [facility] Leukocytes [#/volume] correc chris for nucleated erythrocytes in Blood by Automated counOrdered By: Estela Varma on 12-22-2022 WBC corrected for nucl RBC Auto (Bld) [#/Vol] 6.0 10*3/uL 4.1-10.5 [facility] Lymphocytes Auto (Bld) [#/Vo l]Ordered By: Estela Varma on 12-22-2022 Lymphocytes (Bld) [#/Vol] 0.9 10*3/uL 1.00-4.8 [facility] Lymphocytes/100 WBC Auto (Bl d)Ordered By: Estela Varma on 12-22-2022 Lymphocytes/100 WBC (Bld) 15.7 % . [facility] MCH Auto (RBC) [Entitic mass ]Ordered By: Estela Varma on 12-22-2022 MCH (RBC) [Entitic mass] 31.9 pg 27.5-35.2 [facility] MCHC Auto (RBC) [Mass/Vol]Or dered By: Estela Varma on 12-22-2022 MCHC (RBC) [Mass/Vol] 33.5 g/dL 32.5-35.6 [facility] MCV Auto (RBC) [Entitic vol] Ordered By: Estela Varma on 12-22-2022 MCV (RBC) [Entitic vol] 95.0 fL 83.5-101 [facility] Monocytes Auto (Bld) [#/Vol] Ordered By: Estela Varma on 12-22-2022 Monocytes (Bld) [#/Vol] 0.5 10*3/uL 0.0-0.8 [facility] Monocytes/100 WBC Auto (Bld) Ordered By: Estela Varma on 12-22-2022 Monocytes/100 WBC (Bld) 7.8 % . [facility] Neutrophils Auto (Bld) [#/Vo l]Ordered By: Estela Varma on 12-22-2022 Neutrophils (Bld) [#/Vol] 4.2 10*3/uL 1.8-7.7 [facility] Neutrophils/100 WBC Auto (Bl d)Ordered By: Estela Varma on 12-22-2022 Neutrophils/100 WBC (Bld) 70.2 % . [facility] No Panel InformationOrdered By: Estela Varma on 12-22-2022 Estimated GFR (CKD-EPI) > 60.0 mL/Min [facility] Creatinine Clearance (Chem 114.05 [facility] Nucleated erythrocytes [Pres ence] in Blood by Automated countOrdered By: Estela Varma on 12-22-2022 Nucleated RBC Auto Ql (Bld) 0.0 /100{WBC} 0-0.5 [facility] Platelet mean volume Auto (B ld) [Entitic vol]Ordered By: Estela Varma on 12-22-2022 Platelet mean volume (Bld) [Entitic vol] 6.9 fL 6.6-10.1 [facility] Platelets Auto (Bld) [#/Vol] Ordered By: Estela Varma on 12-22-2022 Platelets (Bld) [#/Vol] 177 10*3/uL 150-450 [facility] Potassium [Moles/volume] in Serum or PlasmaOrdered By: Estela Varma on 12-22-2022 Potassium [Moles/Vol] 4.2 mmol/L 3.5-5.1 [facility] Protein [Mass/volume] in Ser um or PlasmaOrdered By: Estela Varma on 12-22-2022 Protein [Mass/Vol] 6.0 g/dL 6.4-8.9 [facility] RBC Auto (Bld) [#/Vol]Ordere d By: Estela Varma on 12-22-2022 RBC (Bld) [#/Vol] 4.17 10*6/uL 3.90-5.60 [facility] Serum or plasma albumin/glob ulin mass ratioOrdered By: Estela Varma on 12-22-2022 Albumin/Globulin [Mass ratio] 1.6 {ratio} [facility] Serum or plasma anion gap de terminationOrdered By: Estela Varma on 12-22-2022 Anion gap [Moles/Vol] 8.0 mmol/L 6.0-15.0 [facility] Sodium [Moles/volume] in Ser um or PlasmaOrdered By: Estela Varma on 12-22-2022 Sodium [Moles/Vol] 127 mmol/L 136-145 [facility] Urea nitrogen [Mass/volume] in Serum or PlasmaOrdered By: Estela Varma on 12-22-2022 Urea nitrogen [Mass/Vol] 6 mg/dL 7-25 [facility] WBC Auto (Bld) [#/Vol]Ordere d By: Estela Varma on 12-22-2022 WBC (Bld) [#/Vol] 6.0 10*3/uL 4.1-10.5 [facility] Alanine aminotransferase [En zymatic activity/volume] in Serum or PlasmaOrdered By: Estela Varma on 10-26-2022 ALT [Catalytic activity/Vol] 12 U/L 7-52 [facility] Albumin [Mass/volume] in Ser um or Plasma by Bromocresol green (BCG) dye binding methoOrdered By: Estela Varma on 10-26-2022 Albumin BCG dye [Mass/Vol] 3.9 g/dL 3.5-5.7 [facility] Alkaline phosphatase [Enzyma tic activity/volume] in Serum or PlasmaOrdered By: Estela Varma on 10-26-2022 ALP [Catalytic activity/Vol] 140 U/L 34-104 [facility] Aspartate aminotransferase [ Enzymatic activity/volume] in Serum or PlasmaOrdered By: Estela Varma on 10-26-2022 AST [Catalytic activity/Vol] 16 U/L 13-39 [facility] Basophils Auto (Bld) [#/Vol] Ordered By: Estela Varma on 10-26-2022 Basophils (Bld) [#/Vol] 0.0 10*3/uL 0.0-0.2 [facility] Basophils/100 WBC Auto (Bld) Ordered By: Estela Varma on 10-26-2022 Basophils/100 WBC (Bld) 0.8 % . [facility] Bilirubin.total [Mass/volume ] in Serum or PlasmaOrdered By: Estela Varma on 10-26-2022 Bilirubin [Mass/Vol] 0.6 mg/dL 0.3-1.0 [facility] Calcium [Mass/volume] in Ser um or PlasmaOrdered By: Estela Varma on 10-26-2022 Calcium [Mass/Vol] 8.3 mg/dL 8.6-10.3 [facility] Carbon dioxide, total [Moles /volume] in Serum or PlasmaOrdered By: Estela Varma on 10-26-2022 CO2 [Moles/Vol] 23.5 mmol/L 21.0-31.0 [facility] Chloride [Moles/volume] in S coral or PlasmaOrdered By: Estela Varma on 10-26-2022 Chloride [Moles/Vol] 98 mmol/L 98-107 [facility] Creatinine [Mass/volume] in Serum or PlasmaOrdered By: Estela Varma on 10-26-2022 Creatinine [Mass/Vol] 0.67 mg/dL 0.70-1.30 [facility] Eosinophils Auto (Bld) [#/Vo l]Ordered By: Estela Varma on 10-26-2022 Eosinophils (Bld) [#/Vol] 0.1 10*3/uL 0.0-0.45 [facility] Eosinophils/100 WBC Auto (Bl d)Ordered By: Estela Varma on 10-26-2022 Eosinophils/100 WBC (Bld) 2.6 % . [facility] Erythrocyte distribution wid th Auto (RBC) [Ratio]Ordered By: Estela Varma on 10-26-2022 Erythrocyte distribution width (RBC) [Ratio] 15.0 % 12.0-14.8 [facility] Erythrocyte sedimentation ra te by Photometric methodOrdered By: Estela Varma on 10-26-2022 ESR Photometric method (Bld) [Velocity] 16 mm/hr 0-19 [facility] Ferritin [Mass/volume] in Se rum or PlasmaOrdered By: Estela Varma on 10-26-2022 Ferritin [Mass/Vol] 225.5 ng/mL 23.9-336.2 [facility] Folate [Mass/volume] in Seru m or PlasmaOrdered By: Estela Varma on 10-26-2022 Folate [Mass/Vol] 4.9 ng/mL >5.9 [facility] Comment on above: Folate reference ran ge: >5.9 ng/mlThe WHO technical consultation on folate and vitamin [id number] has determined that folate concentrations lessthan 4 ng/ml are considered deficient. Globulin Calc (S) [Mass/Vol] Ordered By: Estela Varma on 10-26-2022 Globulin (S) [Mass/Vol] 2.8 g/dL [facility] Glucose [Mass/volume] in Ser um or PlasmaOrdered By: Estela Varma on 10-26-2022 Glucose [Mass/Vol] 66 mg/dL 70-100 [facility] Comment on above: ADA recommended refe rence rangeRandom Glucose Reference Range is dependent on time and content of last meal. Glucose of more than 200 mg/dL in a nonstressed, ambulatory subject supports the diagnosis of Diabetes Mellitus. Hematocrit Auto (Bld) [Volum e fraction]Ordered By: Estela Varma on 10-26-2022 Hematocrit (Bld) [Volume fraction] 39.7 % 38.8-50.0 [facility] Hemoglobin [Mass/volume] in BloodOrdered By: Estela Varma on 10-26-2022 Hemoglobin (Bld) [Mass/Vol] 13.6 g/dL 13.0-17.0 [facility] Iron [Mass/volume] in Serum or PlasmaOrdered By: Estela Varma on 10-26-2022 Iron [Mass/Vol] 103 ug/dL 50-212 [facility] Iron binding capacity [Mass/ volume] in Serum or PlasmaOrdered By: Estela Varma on 10-26-2022 Iron binding capacity [Mass/Vol] 269 ug/dL 255-450 [facility] Iron saturation [Mass Fracti on] in Serum or PlasmaOrdered By: Estela Varma on 10-26-2022 Iron saturation [Mass fraction] 38.3 % 20-50 [facility] Leukocytes [#/volume] correc hcris for nucleated erythrocytes in Blood by Automated counOrdered By: Estela Varma on 10-26-2022 WBC corrected for nucl RBC Auto (Bld) [#/Vol] 5.8 10*3/uL 4.1-10.5 [facility] Lymphocytes Auto (Bld) [#/Vo l]Ordered By: Estela Varma on 10-26-2022 Lymphocytes (Bld) [#/Vol] 0.9 10*3/uL 1.00-4.8 [facility] Lymphocytes/100 WBC Auto (Bl d)Ordered By: Estela Varma on 10-26-2022 Lymphocytes/100 WBC (Bld) 15.0 % . [facility] MCH Auto (RBC) [Entitic mass ]Ordered By: Estela Varma on 10-26-2022 MCH (RBC) [Entitic mass] 32.6 pg 27.5-35.2 [facility] MCHC Auto (RBC) [Mass/Vol]Or dered By: Estela Varma on 10-26-2022 MCHC (RBC) [Mass/Vol] 34.2 g/dL 32.5-35.6 [facility] MCV Auto (RBC) [Entitic vol] Ordered By: Estela Varma on 10-26-2022 MCV (RBC) [Entitic vol] 95.2 fL 83.5-101 [facility] Monocytes Auto (Bld) [#/Vol] Ordered By: Estela Varma on 10-26-2022 Monocytes (Bld) [#/Vol] 0.7 10*3/uL 0.0-0.8 [facility] Monocytes/100 WBC Auto (Bld) Ordered By: Estela Varma on 10-26-2022 Monocytes/100 WBC (Bld) 12.1 % . [facility] Neutrophils Auto (Bld) [#/Vo l]Ordered By: Estela Varma on 10-26-2022 Neutrophils (Bld) [#/Vol] 4.1 10*3/uL 1.8-7.7 [facility] Neutrophils/100 WBC Auto (Bl d)Ordered By: Estela Varma on 10-26-2022 Neutrophils/100 WBC (Bld) 69.5 % . [facility] No Panel InformationOrdered By: Estela Varma on 10-26-2022 Estimated GFR (CKD-EPI) > 60.0 mL/Min [facility] Creatinine Clearance (Chem 121.12 [facility] Nucleated erythrocytes [Pres ence] in Blood by Automated countOrdered By: Estela Varma on 10-26-2022 Nucleated RBC Auto Ql (Bld) 0.2 /100{WBC} 0-0.5 [facility] Platelet mean volume Auto (B ld) [Entitic vol]Ordered By: Esetla Varma on 10-26-2022 Platelet mean volume (Bld) [Entitic vol] 6.7 fL 6.6-10.1 [facility] Platelets Auto (Bld) [#/Vol] Ordered By: Estela Varma on 10-26-2022 Platelets (Bld) [#/Vol] 227 10*3/uL 150-450 [facility] Potassium [Moles/volume] in Serum or PlasmaOrdered By: Estela Varma on 10-26-2022 Potassium [Moles/Vol] 4.1 mmol/L 3.5-5.1 [facility] Protein [Mass/volume] in Ser um or PlasmaOrdered By: Estela Varma on 10-26-2022 Protein [Mass/Vol] 6.7 g/dL 6.4-8.9 [facility] RBC Auto (Bld) [#/Vol]Ordere d By: Estela Varma on 10-26-2022 RBC (Bld) [#/Vol] 4.17 10*6/uL 3.90-5.60 [facility] Serum or plasma albumin/glob ulin mass ratioOrdered By: Estela Varma on 10-26-2022 Albumin/Globulin [Mass ratio] 1.4 {ratio} [facility] Serum or plasma anion gap de terminationOrdered By: Estela Varma on 10-26-2022 Anion gap [Moles/Vol] 11.6 mmol/L 6.0-15.0 [facility] Serum or plasma carcinoembry onic antigen measurement (mass/volume)Ordered By: Estela Varma on 10-26-2022 Carcinoembryonic Ag [Mass/Vol] 8.0 ng/mL 0.0-3.0 [facility] Serum or plasma erythropoiet in (EPO) measurement (units/volume)Ordered By: Estela Varma on 10-26-2022 Erythropoietin (EPO) Qn 15.7 mIU/mL 2.6-18.5 [facility] Comment on above: [employer] DxI 800 Immunoassay SystemValues obtained with different assay methods or kits cannotbe used interchangeably. Results cannot be interpreted asabsolute evidence of the presence or absence of malignantdisease.Performed at: [address] [id number] Director: Fernando Barnd PhD, Phone: [phone] Sodium [Moles/volume] in Ser um or PlasmaOrdered By: Estela Varma on 10-26-2022 Sodium [Moles/Vol] 129 mmol/L 136-145 [facility] Transferrin [Mass/volume] in Serum or PlasmaOrdered By: Estela Varma on 10-26-2022 Transferrin [Mass/Vol] 192 mg/dL 203-362 [facility] Urea nitrogen [Mass/volume] in Serum or PlasmaOrdered By: Estela Varma on 10-26-2022 Urea nitrogen [Mass/Vol] 8 mg/dL 7-25 [facility] Vitamin B12 ser/plasOrdered By: Estela Varma on 10-26-2022 Cobalamin (Vitamin B12) [Mass/Vol] 252 pg/mL 180-914 [facility] WBC Auto (Bld) [#/Vol]Ordere d By: Estela Varma on 10-26-2022 WBC (Bld) [#/Vol] 5.8 10*3/uL 4.1-10.5 [facility] CYTOLOGYon 10-03-2022 SENT TO REF LAB 10/04/2022 Normal [facility] Comment on above: Performed By: #### C YTO #### [facility] [address] [address] [address] Sushant Pradhan CULTURE STERILE BODY FLUIDon 09-11-2022 CULTURE STERILE BODY FLUID Culture Observations: NO GROWTH AT 72 HRS [facility] Comment on above: Performed By: #### C MREP #### [facility] [address] [address] [address] Sushant Pradhan CULTURE STERILE BODY FLUIDon 09-08-2022 CULTURE STERILE BODY FLUID Culture Observations: NO GROWTH AT 72 HOURS. [facility] Comment on above: Performed By: #### C MREP #### [facility] [address] [address] [address] Sushant Pradhan CULTURE STERILE BODY FLUIDon 09-04-2022 CULTURE STERILE BODY FLUID Culture Observations: NO GROWTH AT 72 HOURS. Normal [facility] Comment on above: Performed By: #### C MREP #### [facility] [address] [address] [address] Sushant Pradhan XR RIBS LT PA [...] Date: 2022-09-01 11:46 Normal [facility] CBC AUTO DIFFon 08-27-2022 BASO # 0.0 103/ul Normal 0.0-0.1 [facility] Comment on above: Performed By: #### C BC #### [facility] [address] [address] [address] Sushant Pradhan Basophils/100 WBC (Bld) 0.3 % Normal 0.2-2.0 [facility] Comment on above: Performed By: #### C BC #### [facility] [address] [address] [address] Sushant Pradhan EO # 0.2 103/ul Normal 0.0-0.7 [facility] Comment on above: Performed By: #### C BC #### [facility] [address] [place] [address] Dr. Sushant Pradhan Eosinophils/100 WBC (Bld) 3.0 % Normal 0.9-7.0 [facility] Comment on above: Performed By: #### C BC #### [facility] [address] [place] [address] Dr. Sushant Pradhan Erythrocyte distribution width (RBC) [Ratio] 16.5 % Critically high 11.0-15.0 [facility] Comment on above: Performed By: #### C BC #### [facility] [address] [place] [address] Dr. Sushant Pradhan Hematocrit (Bld) [Volume fraction] 38.4 % Critically low 42.0-54.0 [facility] Comment on above: Performed By: #### C BC #### [facility] [address] [place] [address] Dr. Sushant Pradhan Hemoglobin (Bld) [Mass/Vol] 13.9 g/dL Critically low 14.0-18.0 [facility] Comment on above: Performed By: #### C BC #### [facility] [address] [place] [address] Dr. Sushant Pradhan IG # 0.01 10e3/ul Normal 0.00-0.03 [facility] Comment on above: Performed By: #### C BC #### [facility] [address] [place] [address] Dr. Sushant Pradhan IG % 0.2 % Normal 0.0-0.5 [facility] Comment on above: Performed By: #### C BC #### [facility] [address] [place] [address] Dr. Sushant Pradhan LYMPH # 1.0 103/ul Critically low 1.2-3.8 [facility] Comment on above: Performed By: #### C BC #### [facility] [address] [place] [address] Dr. Sushant Pradhan Lymphocytes/100 WBC (Bld) 15.8 % Critically low 20.5-60.0 [facility] Comment on above: Performed By: #### C BC #### [facility] [address] [place] [address] Dr. Sushant Pradhan MANUAL DIFF REQ NO Normal [facility] Comment on above: Performed By: #### C BC #### [facility] [address] [place] [address] Dr. Sushant Pradhan MCH (RBC) [Entitic mass] 32.8 pg Normal 25.9-34.0 [facility] Comment on above: Performed By: #### C BC #### [facility] [address] [place] [address] Dr. Sushant Pradhan MCHC (RBC) [Mass/Vol] 36.2 g/dL Critically high 29.9-35.2 [facility] Comment on above: Performed By: #### C BC #### [facility] [address] [place] [address] Dr. Sushant Pradhan MCV (RBC) [Entitic vol] 90.6 fL Normal 80.0-94.0 [facility] Comment on above: Performed By: #### C BC #### [facility] [address] [place] [address] Dr. Sushant Pradhan MONO # 0.8 103/ul Normal 0.3-0.8 [facility] Comment on above: Performed By: #### C BC #### [facility] [address] [place] [address] Dr. Sushant Pradhan Monocytes/100 WBC (Bld) 12.6 % Critically high 1.7-12.0 [facility] Comment on above: Performed By: #### C BC #### [facility] [address] [place] [address] Dr. Sushant Pradhan NEUT # 4.3 103/ul Normal 1.4-6.5 [facility] Comment on above: Performed By: #### C BC #### [facility] [address] [place] [address] Dr. Sushant Pradhan Neutrophils/100 WBC (Bld) 68.1 % Normal 43.0-75.0 [facility] Comment on above: Performed By: #### C BC #### [facility] [address] [place], [place] [address] Dr. Sushant Pradhan Platelet mean volume (Bld) [Entitic vol] 9.0 fL Critically low 9.5-13.5 [facility] Comment on above: Performed By: #### C BC #### [facility] [address] [id number] [address] Sushant Pradhan PLT 192 103/ul Normal 150-450 [facility] Comment on above: Performed By: #### C BC #### [facility] [address] [place], [place] [address] Dr. Sushant Pradhan RBC 4.24 106/ul Critically low 4.70-6.10 [facility] Comment on above: Performed By: #### C BC #### [facility] [address] [address] [address] Sushant Pradhan WBC 6.3 103/ul Normal 4.0-11.0 [facility] Comment on above: Performed By: #### C BC #### [facility] [address] [address] CHEST W CONon [...] MARCE SHAY Date: 2022-08-27 12:02 Normal [facility] LACTATE/LACTIC ACIDon 2022 Lactate [Moles/Vol] 1.8 mmol/L Normal 0.4-2.0 [facility] Comment on above: Performed By: #### C MREP #### [facility] [address] [place], [place] [address] Dr. Sushant Pradhan PROF 14(COMP METB)on 023 Albumin [Mass/Vol] 3.2 g/dL Critically low 3.4-5.0 [facility] Comment on above: Performed By: #### C BC #### [facility] [address] [place], [place] [address] Dr. Sushant Pradhan Albumin/Globulin [Mass ratio] 0.7 {ratio} Normal [facility] Comment on above: Performed By: #### C BC #### [facility] [address] [address] [address] Sushant Pradhan ALP [Catalytic activity/Vol] 207 U/L Critically high 46-116 [facility] Comment on above: Performed By: #### C BC #### [facility] [address] [address] [address] Sushant Pradhan ALT [Catalytic activity/Vol] 22 U/L Normal 16-63 [facility] Comment on above: Performed By: #### C BC #### [facility] [address] [address] [address] Sushant Pradhan Anion gap [Moles/Vol] 11.9 mmol/L Normal [facility] Comment on above: Performed By: #### C BC #### [facility] [address] [address] [address] Sushant Pradhan AST [Catalytic activity/Vol] 23 U/L Normal 15-37 [facility] Comment on above: Performed By: #### C BC #### [facility] [address] [address] [address] Sushant Pradhan Bilirubin [Mass/Vol] 0.4 mg/dL Normal 0.2-1.0 [facility] Comment on above: Performed By: #### C BC #### [facility] [address] [address] [address] Sushant Pradhan Calcium [Mass/Vol] 9.2 mg/dL Normal 8.5-10.[address] [facility] Comment on above: Performed By: #### C BC #### [facility] [address] [address] [address] Sushant Pradhan Chloride [Moles/Vol] 97 mmol/L Critically low 98-107 [facility] Comment on above: Performed By: #### C BC #### [facility] [address] [address] [address] Sushant Pradhan CO2 [Moles/Vol] 28.1 mmol/L Normal 21.0-32.0 [facility] Comment on above: Performed By: #### C BC #### [facility] [address] [address] [address] Sushant Pradhan Creatinine [Mass/Vol] 0.86 mg/dL Normal 0.70-1.30 [facility] Comment on above: Performed By: #### C BC #### [facility] [address] [place] [address] Dr. Sushant Pradhan EGFR-AF ARMENIAN >60 Normal >=60 [facility] Comment on above: Performed By: #### C BC #### [facility] [address] [address] [address] Sushant Pradhan EGFR-NON AF ARMENIAN >60 Normal >=60 [facility] Comment on above: Performed By: #### C BC #### [facility] [address] [place] [address] Dr. Sushant Pradhan Globulin (S) [Mass/Vol] 4.8 g/dL Normal [facility] Comment on above: Performed By: #### C BC #### [facility] [address] [place] [address] Dr. Sushant Pradhan Glucose [Mass/Vol] 104 mg/dL Normal 74-[address] [facility] Comment on above: Performed By: #### C BC #### [facility] [address] [place] [address] Dr. Sushant Pradhan Potassium [Moles/Vol] 4.0 mmol/L Normal 3.5-5.1 [facility] Comment on above: Performed By: #### C BC #### [facility] [address] [place] [address] Dr. Sushant Pradhan Protein [Mass/Vol] 8.0 g/dL Normal 6.4-8.2 [facility] Comment on above: Performed By: #### C BC #### [facility] [address] [place] [address] Dr. Sushant Pradhan Sodium [Moles/Vol] 133 mmol/L Critically low 136-145 [facility] Comment on above: Performed By: #### C BC #### [facility] [address] [place], [place] [id number] Dr. Sushant Pradhan Urea nitrogen [Mass/Vol] 6.0 mg/dL Critically low 7.0-18.0 [facility] Comment on above: Performed By: #### C BC #### [facility] [address] [place] [address] Dr. Sushant Pradhan Urea nitrogen/Creatinine [Mass ratio] 7.0 mg/mg Normal [facility] Comment on above: Performed By: #### C BC #### [facility] [address] [place] [address] Dr. Sushant Pradhan TROPONIN, HIGH SENSITIVITYon 08-27-2022 HSTROP 5.6 pg/mL Normal 4.0-76.1 [facility] Comment on above: Result Comment: CUT- OFF POINTS HAVE BEEN ESTABLISHED BASED ON THE FOURTH UNIVERSAL DEFINITIONS OF MYOCARDIAL INFARCTION. THE UPPER REFERENCE LIMIT (URL) OF TROPONIN, DEFINED THE 99TH PERCENTILE OF cTnI DISTRIBUTION IN A REFERENCE POPULATION, HAS BEEN CONFIRMED THE DECISION THRESHOLD FOR [place] DIAGNOSIS. Performed By: #### C BC #### [facility] [address] [place] [address] Dr. Sushant Pradhan HSTROP 5.8 pg/mL Normal 4.0-76.1 [facility] Comment on above: Result Comment: CUT- OFF POINTS HAVE BEEN ESTABLISHED BASED ON THE FOURTH UNIVERSAL DEFINITIONS OF MYOCARDIAL INFARCTION. THE UPPER REFERENCE LIMIT (URL) OF TROPONIN, DEFINED THE 99TH PERCENTILE OF cTnI DISTRIBUTION IN A REFERENCE POPULATION, HAS BEEN CONFIRMED THE DECISION THRESHOLD FOR [place] DIAGNOSIS. Performed By: #### C BC #### [facility] [address] [place] [address] Dr. Sushant Pradhan CARDIAC SONIA ADMITon 023 CK [Catalytic activity/Vol] 68 U/L Normal 39-308 [facility] Comment on above: Performed By: #### C MREP #### [facility] [address] [place] [address] Dr. Sushant Pradhan CK.MB [Mass/Vol] 1.23 ng/mL Normal <=3.60 [facility] Comment on above: Performed By: #### C MREP #### [facility] [address] [place] [address] Dr. Sushant Pradhan HSTROP 7.1 pg/mL Normal 4.0-76.1 [facility] Comment on above: Result Comment: CUT- OFF POINTS HAVE BEEN ESTABLISHED BASED ON THE FOURTH UNIVERSAL DEFINITIONS OF MYOCARDIAL INFARCTION. THE UPPER REFERENCE LIMIT (URL) OF TROPONIN, DEFINED THE 99TH PERCENTILE OF cTnI DISTRIBUTION IN A REFERENCE POPULATION, HAS BEEN CONFIRMED THE DECISION THRESHOLD FOR [place] DIAGNOSIS. Performed By: #### C MREP #### [facility] [address] [place] [address] Dr. Sushant Pradhan DILAN 32 ng/mL Normal 16-96 [facility] Comment on above: Performed By: #### C MREP #### [facility] [address] [place] [address] Dr. Sushant Pradhan CBC AUTO DIFFon 06-18-2022 BASO # 0.0 103/ul Normal 0.0-0.1 [facility] Comment on above: Performed By: #### C BC #### [facility] [address] [place] [address] Dr. Sushant Pradhan Basophils/100 WBC (Bld) 0.5 % Normal 0.2-2.0 [facility] Comment on above: Performed By: #### C BC #### [facility] [address] [place] [address] Dr. Sushant Pradhan EO # 0.3 103/ul Normal 0.0-0.7 [facility] Comment on above: Performed By: #### C BC #### [facility] [address] [place] [address] Dr. Sushant Pradhan Eosinophils/100 WBC (Bld) 4.5 % Normal 0.9-7.0 [facility] Comment on above: Performed By: #### C BC #### [facility] [address] [place] [address] Dr. Sushant Pradhan Erythrocyte distribution width (RBC) [Ratio] 15.8 % Critically high 11.0-15.0 [facility] Comment on above: Performed By: #### C BC #### [facility] [address] [place] [address] Dr. Sushant Pradhan Hematocrit (Bld) [Volume fraction] 37.3 % Critically low 42.0-54.0 [facility] Comment on above: Performed By: #### C BC #### [facility] [address] [address] [address] Sushant Pradhan Hemoglobin (Bld) [Mass/Vol] 13.0 g/dL Critically low 14.0-18.0 [facility] Comment on above: Performed By: #### C BC #### [facility] [address] [address] [address] Sushant Pradhan IG # 0.02 10e3/ul Normal 0.00-0.03 [facility] Comment on above: Performed By: #### C BC #### [facility] [address] [place] [address] Dr. Sushant Pradhan IG % 0.3 % Normal 0.0-0.5 [facility] Comment on above: Performed By: #### C BC #### [facility] [address] [address] [address] Sushant Pradhan LYMPH # 0.8 103/ul Critically low 1.2-3.8 [facility] Comment on above: Performed By: #### C BC #### [facility] [address] [place] [address] Dr. Sushant Pradhan Lymphocytes/100 WBC (Bld) 13.9 % Critically low 20.5-60.0 [facility] Comment on above: Performed By: #### C BC #### [facility] [address] [place] [address] Dr. Sushant Pradhan MANUAL DIFF REQ NO Normal [facility] Comment on above: Performed By: #### C BC #### [facility] [address] [address] [address] Sushant Pradhan MCH (RBC) [Entitic mass] 33.0 pg Normal 25.9-34.0 [facility] Comment on above: Performed By: #### C BC #### [facility] [address] [place] [address] Dr. Sushant Pradhan MCHC (RBC) [Mass/Vol] 34.9 g/dL Normal 29.9-35.2 [facility] Comment on above: Performed By: #### C BC #### [facility] [address] [place] [address] Dr. Sushant Pradhan MCV (RBC) [Entitic vol] 94.7 fL Critically high 80.0-94.0 [facility] Comment on above: Performed By: #### C BC #### [facility] [address] [place] [address] Dr. Sushant Pradhan MONO # 0.7 103/ul Normal 0.3-0.8 [facility] Comment on above: Performed By: #### C BC #### [facility] [address] [place] [address] Dr. Sushant Pradhan Monocytes/100 WBC (Bld) 12.5 % Critically high 1.7-12.0 [facility] Comment on above: Performed By: #### C BC #### [facility] [address] [place] [address] Dr. Sushant Pradhan NEUT # 4.0 103/ul Normal 1.4-6.5 [facility] Comment on above: Performed By: #### C BC #### [facility] [address] [place] [address] Dr. Sushant Pradhan Neutrophils/100 WBC (Bld) 68.3 % Normal 43.0-75.0 [facility] Comment on above: Performed By: #### C BC #### [facility] [address] [place] [address] Dr. Sushant Pradhan Platelet mean volume (Bld) [Entitic vol] 9.1 fL Critically low 9.5-13.5 [facility] Comment on above: Performed By: #### C BC #### [facility] [address] [place] [address] Dr. Sushant Pradhan PLT 175 103/ul Normal 150-450 [facility] Comment on above: Performed By: #### C BC #### [facility] [address] [place] [address] Dr. Sushant Pradhan RBC 3.94 106/ul Critically low 4.70-6.10 [facility] Comment on above: Performed By: #### C BC #### [facility] [address] [place] [address] Dr. Sushant Pradhan WBC 5.8 103/ul Normal 4.0-11.0 [facility] Comment on above: Performed By: #### C BC #### [facility] [address] [place] [address] Dr. Sushant Pradhan PROF 14(COMP METB)on 023 Albumin [Mass/Vol] 2.9 g/dL Critically low 3.4-5.0 [facility] Comment on above: Performed By: #### C MREP #### [facility] [address] [place] [address] Dr. Sushant Pradhan Albumin/Globulin [Mass ratio] 0.8 {ratio} Normal [facility] Comment on above: Performed By: #### C MREP #### [facility] [address] [place] [address] Dr. Sushant Pradhan ALP [Catalytic activity/Vol] 133 U/L Critically high 46-116 [facility] Comment on above: Performed By: #### C MREP #### [facility] [address] [place] [address] Dr. Sushant Pradhan ALT [Catalytic activity/Vol] 15 U/L Critically low 16-63 [facility] Comment on above: Performed By: #### C MREP #### [facility] [address] [place] [address] Dr. Sushant Pradahn Anion gap [Moles/Vol] 16.5 mmol/L Normal [facility] Comment on above: Performed By: #### C MREP #### [facility] [address] [place] [address] Dr. Sushant Pradhan AST [Catalytic activity/Vol] 15 U/L Normal 15-37 [facility] Comment on above: Performed By: #### C MREP #### [facility] [address] [place] [address] Dr. Sushant Pradhan Bilirubin [Mass/Vol] 0.4 mg/dL Normal 0.2-1.0 [facility] Comment on above: Performed By: #### C MREP #### [facility] [address] [address] [address] Sushant Pradhan Calcium [Mass/Vol] 8.6 mg/dL Normal 8.5-10.1 [facility] Comment on above: Performed By: #### C MREP #### [facility] [address] [address] [address] Sushant Pradhan Chloride [Moles/Vol] 97 mmol/L Critically low 98-107 [facility] Comment on above: Performed By: #### C MREP #### [facility] [address] [address] [address] Sushant Pradhan CO2 [Moles/Vol] 22.3 mmol/L Normal 21.0-32.0 [facility] Comment on above: Performed By: #### C MREP #### [facility] [address] [place] [address] Dr. Sushant Pradhan Creatinine [Mass/Vol] 0.61 mg/dL Critically low 0.70-1.30 [facility] Comment on above: Performed By: #### C MREP #### [facility] [address] [place] [address] Dr. Sushant Pradhan EGFR-AF ARMENIAN >60 Normal >=60 [facility] Comment on above: Performed By: #### C MREP #### [facility] [address] [place] [address] Dr. Sushant Pradhan EGFR-NON AF ARMENIAN >60 Normal >=60 [facility] Comment on above: Performed By: #### C MREP #### [facility] [address] [place] [address] Dr. Sushant Pradhan Globulin (S) [Mass/Vol] 3.8 g/dL Normal [facility] Comment on above: Performed By: #### C MREP #### [facility] [address] [place] [address] Dr. Sushant Pradhan Glucose [Mass/Vol] 79 mg/dL Normal 74-106 [facility] Comment on above: Performed By: #### C MREP #### [facility] [address] [address] [address] Sushant Pradhan Potassium [Moles/Vol] 3.8 mmol/L Normal 3.5-5.1 [facility] Comment on above: Performed By: #### C MREP #### [facility] [address] [address] [address] Sushant Pradhan Protein [Mass/Vol] 6.7 g/dL Normal 6.4-8.[address] [facility] Comment on above: Performed By: #### C MREP #### [facility] [address] [address] [address] Sushant Pradhan Sodium [Moles/Vol] 132 mmol/L Critically low 136-145 [facility] Comment on above: Performed By: #### C MREP #### [facility] [address] [address] [address] Sushant Pradhan Urea nitrogen [Mass/Vol] 5.0 mg/dL Critically low 7.0-18.0 [facility] Comment on above: Performed By: #### C MREP #### [facility] [address] [address] [address] Sushant Pradhan Urea nitrogen/Creatinine [Mass ratio] 8.2 mg/mg Normal [facility] Comment on above: Performed By: #### C MREP #### [facility] [address] [address] [address] Sushant Pradhan XR CHEST 1 Von [...] Date: 2022-06-18 10:42 Normal [facility] Basophils Auto (Bld) [#/Vol] Ordered By: Jackie Fraga on 06-17-2022 Basophils (Bld) [#/Vol] 0.0 10*3/uL 0.0-0.2 [facility] Basophils/100 WBC Auto (Bld) Ordered By: Jackie Fraga on 06-17-2022 Basophils/100 WBC (Bld) 0.7 % . [facility] Creatinine and Glomerular fi ltration rate.predicted panel (S/P/Bld)Ordered By: Jackie Fraga on 06-17-2022 Creatinine [Mass/Vol] 0.91 mg/dL 0.64-1.27 [facility] Eosinophils Auto (Bld) [#/Vo l]Ordered By: Jackie Fraga on 06-17-2022 Eosinophils (Bld) [#/Vol] 0.2 10*3/uL 0.0-0.45 [facility] Eosinophils/100 WBC Auto (Bl d)Ordered By: Jackie Fraga on 06-17-2022 Eosinophils/100 WBC (Bld) 3.5 % . [facility] Erythrocyte distribution wid th Auto (RBC) [Ratio]Ordered By: Jackie Fraga on 06-17-2022 Erythrocyte distribution width (RBC) [Ratio] 15.8 % 12.0-14.8 [facility] Estimated glomerular filtrat ion rate (GFR) non- AmericanOrdered By: Jackie Fraga on 06-17-2022 GFR/1.73 sq M.predicted among non-blacks MDRD (S/P/Bld) [Vol rate/Area] > 60 mL/Min [facility] Hematocrit Auto (Bld) [Volum e fraction]Ordered By: Jackie Fraga on 06-17-2022 Hematocrit (Bld) [Volume fraction] 41.9 % 38.8-50.0 [facility] Hemoglobin [Mass/volume] in BloodOrdered By: Jackie Fraga on 06-17-2022 Hemoglobin (Bld) [Mass/Vol] 13.8 g/dL 13.0-17.0 [facility] Leukocytes [#/volume] correc chris for nucleated erythrocytes in Blood by Automated counOrdered By: Jackie Fraga on 06-17-2022 WBC corrected for nucl RBC Auto (Bld) [#/Vol] 6.1 10*3/uL 4.1-10.5 [facility] Lymphocytes Auto (Bld) [#/Vo l]Ordered By: Jackie Fraga on 06-17-2022 Lymphocytes (Bld) [#/Vol] 1.0 10*3/uL 1.00-4.8 [facility] Lymphocytes/100 WBC Auto (Bl d)Ordered By: Jackie Fraga on 06-17-2022 Lymphocytes/100 WBC (Bld) 16.6 % . [facility] MCH Auto (RBC) [Entitic mass ]Ordered By: Jackie Fraga on 06-17-2022 MCH (RBC) [Entitic mass] 32.9 pg 27.5-35.2 [facility] MCHC Auto (RBC) [Mass/Vol]Or dered By: Jackie Fraga on 06-17-2022 MCHC (RBC) [Mass/Vol] 33.1 g/dL 32.5-35.6 [facility] MCV Auto (RBC) [Entitic vol] Ordered By: Jackie Fraga on 06-17-2022 MCV (RBC) [Entitic vol] 99.4 fL 83.5-101 [facility] Monocytes Auto (Bld) [#/Vol] Ordered By: Jackie Fraga on 06-17-2022 Monocytes (Bld) [#/Vol] 0.8 10*3/uL 0.0-0.8 [facility] Monocytes/100 WBC Auto (Bld) Ordered By: Jackie Fraga on 06-17-2022 Monocytes/100 WBC (Bld) 13.3 % . [facility] Neutrophils Auto (Bld) [#/Vo l]Ordered By: Jackie Fraga on 06-17-2022 Neutrophils (Bld) [#/Vol] 4.0 10*3/uL 1.8-7.7 [facility] Neutrophils/100 WBC Auto (Bl d)Ordered By: Jackie Fraga on 06-17-2022 Neutrophils/100 WBC (Bld) 65.9 % . [facility] No Panel InformationOrdered By: Jackie Fraga on 06-17-2022 Estimated GFR () > 60 mL/Min [facility] Comment on above: GFR estimated refere nce range: According to KDOQI guidelines, <60 ml/min/1.73m2 is sufficient to diagnose a patient with chronic kidney disease. Pharmacy Creatinine Clearance (Chem 86.01 [facility] Nucleated erythrocytes [Pres ence] in Blood by Automated countOrdered By: Jackie Fraga on 06-17-2022 Nucleated RBC Auto Ql (Bld) 0.2 /100{WBC} 0-0.5 [facility] Platelet mean volume Auto (B ld) [Entitic vol]Ordered By: Jackie Fraga on 06-17-2022 Platelet mean volume (Bld) [Entitic vol] 7.7 fL 6.6-10.1 [facility] Platelets Auto (Bld) [#/Vol] Ordered By: Jackie Fraga on 06-17-2022 Platelets (Bld) [#/Vol] 185 10*3/uL 150-450 [facility] RBC Auto (Bld) [#/Vol]Ordere d By: Jackie Fraga on 06-17-2022 RBC (Bld) [#/Vol] 4.21 10*6/uL 3.90-5.60 [facility] Serum or plasma anion gap de terminationOrdered By: Jackie Fraga on 06-17-2022 Anion gap [Moles/Vol] 10.6 mmol/L 6.0-15.0 [facility] Serum or plasma calcium ledy urement (mass/volume)Ordered By: Jackie Fraga on 06-17-2022 Calcium [Mass/Vol] 8.6 mg/dL 8.2-10.2 [facility] Serum or plasma chloride carlyn surement (moles/volume)Ordered By: Jackie Fraga on 06-17-2022 Chloride [Moles/Vol] 99 mmol/L 95-114 [facility] Serum or plasma glucose ledy urement (mass/volume)Ordered By: Jackie Fraga on 06-17-2022 Glucose [Mass/Vol] 94 mg/dL 70-100 [facility] Comment on above: ADA recommended refe rence rangeRandom Glucose Reference Range is dependent on time and content of last meal. Glucose of more than 200 mg/dL in a nonstressed, ambulatory subject supports the diagnosis of Diabetes Mellitus. Serum or plasma potassium me asurement (moles/volume)Ordered By: Jackie Fraga on 06-17-2022 Potassium [Moles/Vol] 4.1 mmol/L 3.5-5.1 [facility] Serum or plasma sodium measu rement (moles/volume)Ordered By: Jackie Fraga on 06-17-2022 Sodium [Moles/Vol] 127 mmol/L 136-146 [facility] Serum or plasma total carbon dioxide measurement (moles/volume)Ordered By: Jackie Fraga on 06-17-2022 CO2 [Moles/Vol] 21.5 mmol/L 22.0-30.0 [facility] Serum or plasma urea nitroge n measurement (mass/volume)Ordered By: Jackie Fraga on 06-17-2022 Urea nitrogen [Mass/Vol] 10 mg/dL 9-23 [facility] TSH DL <= 0.005 mIU/L QnOrde red By: Jackie Fraga on 06-17-2022 TSH Qn 4.63 m[IU]/L 0.45-5.33 [facility] WBC Auto (Bld) [#/Vol]Ordere d By: Jackie Fraga on 06-17-2022 WBC (Bld) [#/Vol] 6.1 10*3/uL 4.1-10.5 [facility] Amphetamine Screen Ql (U)Ord ered By: Edward Hinds on 06-16-2022 Amphetamines Ql (U) Negative Negative [facility] Barbiturates [Presence] in U rineOrdered By: Edward Hinds on 06-16-2022 Barbiturates Ql (U) Negative Negative [facility] Benzodiazepines [Presence] i n UrineOrdered By: Edward Hinds on 06-16-2022 Benzodiazepines Ql (U) Negative Negative [facility] Cannabinoids [Presence] in U rine by Screen methodOrdered By: Edward Hinds on 06-16-2022 Cannabinoids Screen Ql (U) Positive Negative [facility] Comment on above: These are unconfirme d results and should not be used for legal purposes. Drug Cut-Off Concentration: AMPH 1000 ng/mL ZUNILDA 200 ng/mL SHIVANI 200 ng/mL COCM 300 ng/mL OP 300 ng/mL PCP 25 ng/mL THC 20 ng/mL Laboratory - Drug toxicology Ordered By: Edward Hinds on 06-16-2022 Opiates Ql (U) Negative Negative [facility] Phencyclidine Screen Ql (U)O rdered By: Edward Hinds on 06-16-2022 Phencyclidine Ql (U) Negative Negative [facility] Urine cocaine detectionOrder ed By: Edward Hinds on 06-16-2022 Cocaine Ql (U) Negative Negative [facility] Activated partial thrombopla stin time (aPTT) in platelet poor plasma by coagulation aOrdered By: Varghese Duval on 06-15-2022 aPTT Coag (PPP) [Time] 35.2 s 25.1-36.5 [facility] Basophils Auto (Bld) [#/Vol] Ordered By: Varghese Duval on 06-15-2022 Basophils (Bld) [#/Vol] 0.1 10*3/uL 0.0-0.2 [facility] Basophils/100 WBC Auto (Bld) Ordered By: Varghese Duval on 06-15-2022 Basophils/100 WBC (Bld) 1.0 % . [facility] Bilirubin Test strip Ql (U)O rdered By: Varghese Duval on 06-15-2022 Bilirubin Ql (U) Negative Negative [facility] Color Auto (U)Ordered By: Tanya Duval on 06-15-2022 Color (U) Yellow Yellow [facility] Creatinine and Glomerular fi ltration rate.predicted panel (S/P/Bld)Ordered By: Varghese Duval on 06-15-2022 Creatinine [Mass/Vol] 0.76 mg/dL 0.64-1.27 [facility] Eosinophils Auto (Bld) [#/Vo l]Ordered By: Varghese Duval on 06-15-2022 Eosinophils (Bld) [#/Vol] 0.3 10*3/uL 0.0-0.45 [facility] Eosinophils/100 WBC Auto (Bl d)Ordered By: Varghese Duval on 06-15-2022 Eosinophils/100 WBC (Bld) 4.9 % . [facility] Erythrocyte distribution wid th Auto (RBC) [Ratio]Ordered By: Varghese Duval on 06-15-2022 Erythrocyte distribution width (RBC) [Ratio] 15.9 % 12.0-14.8 [facility] [facility] Estimated glomerular filtrat ion rate (GFR) non- AmericanOrdered By: Varghese Duval on 06-15-2022 GFR/1.73 sq M.predicted among non-blacks MDRD (S/P/Bld) [Vol rate/Area] > 60 mL/Min [facility] Hematocrit Auto (Bld) [Volum e fraction]Ordered By: Varghese Duval on 06-15-2022 Hematocrit (Bld) [Volume fraction] 42.5 % 38.8-50.0 [facility] Hemoglobin [Mass/volume] in BloodOrdered By: Varghese Duval 06-15-2022 Hemoglobin (Bld) [Mass/Vol] 14.3 g/dL 13.0-17.0 [facility] Ketones Auto test strip (U) [Mass/Vol]Ordered By: Varghese Duval on 06-15-2022 Ketones (U) [Mass/Vol] Negative Negative [facility] Laboratory - CoagulationOrde red By: Varghese Duval on 06-15-2022 PT Coag (PPP) [Time] 10.7 s 9.0-12.9 [facility] Leukocytes [#/volume] correc chris for nucleated erythrocytes in Blood by Automated counOrdered By: Varghese Duval on 06-15-2022 WBC corrected for nucl RBC Auto (Bld) [#/Vol] 5.4 10*3/uL 4.1-10.5 [facility] Lymphocytes Auto (Bld) [#/Vo l]Ordered By: Varghese Duval on 06-15-2022 Lymphocytes (Bld) [#/Vol] 1.0 10*3/uL 1.00-4.8 [facility] Lymphocytes/100 WBC Auto (Bl d)Ordered By: Varghese Duval on 06-15-2022 Lymphocytes/100 WBC (Bld) 19.3 % . [facility] MCH Auto (RBC) [Entitic mass ]Ordered By: Varghese Duval on 06-15-2022 MCH (RBC) [Entitic mass] 33.2 pg 27.5-35.2 [facility] MCHC Auto (RBC) [Mass/Vol]Or dered By: Varghese Duval on 06-15-2022 MCHC (RBC) [Mass/Vol] 33.5 g/dL 32.5-35.6 [facility] MCV Auto (RBC) [Entitic vol] Ordered By: Varghese Duval on 06-15-2022 MCV (RBC) [Entitic vol] 98.9 fL 83.5-101 [facility] Monocytes Auto (Bld) [#/Vol] Ordered By: Varghese Duval on 06-15-2022 Monocytes (Bld) [#/Vol] 0.5 10*3/uL 0.0-0.8 [facility] Monocytes/100 WBC Auto (Bld) Ordered By: Varghese Duval on 06-15-2022 Monocytes/100 WBC (Bld) 8.8 % . [facility] Neutrophils Auto (Bld) [#/Vo l]Ordered By: Varghese Duval on 06-15-2022 Neutrophils (Bld) [#/Vol] 3.6 10*3/uL 1.8-7.7 [facility] Neutrophils/100 WBC Auto (Bl d)Ordered By: Varghese Duavl on 06-15-2022 Neutrophils/100 WBC (Bld) 66.0 % . [facility] Nitrite Test strip Ql (U)Ord ered By: Varghese Duval on 06-15-2022 Nitrite Ql (U) Negative Negative [facility] No Panel InformationOrdered By: Varghese Duval on 06-15-2022 Estimated GFR () > 60 mL/Min [facility] Comment on above: GFR estimated refere nce range: According to KDOQI guidelines, <60 ml/min/1.73m2 is sufficient to diagnose a patient with chronic kidney disease. Pharmacy Creatinine Clearance (Chem N/A [facility] Nucleated erythrocytes [Pres ence] in Blood by Automated countOrdered By: Varghese Duval on 06-15-2022 Nucleated RBC Auto Ql (Bld) 0.2 /100{WBC} 0-0.5 [facility] Platelet mean volume Auto (B ld) [Entitic vol]Ordered By: Varghese Duval on 06-15-2022 Platelet mean volume (Bld) [Entitic vol] 7.4 fL 6.6-10.1 [facility] Platelet poor plasma interna tional normalized ratio (INR) by coagulation assay (relatOrdered By: Varghese Duval on 06-15-2022 INR Coag (PPP) [Relative time] 0.9 {INR} [facility] Comment on above: INR Therapeutic [...] 06-15-2022 Platelets (Bld) [#/Vol] 212 10*3/uL 150-450 [facility] Protein Auto test strip (U) [Mass/Vol]Ordered By: Varghese Duval on 06-15-2022 Protein (U) [Mass/Vol] Negative Negative [facility] RBC Auto (Bld) [#/Vol]Ordere d By: Varghese Duval on 06-15-2022 RBC (Bld) [#/Vol] 4.30 10*6/uL 3.90-5.60 [facility] Serum or plasma anion gap de terminationOrdered By: Varghese Duval on 06-15-2022 Anion gap [Moles/Vol] 14.4 mmol/L 6.0-15.0 [facility] or plasma calcium ledy urement (mass/volume)Ordered By: Varghese Duval on 06-15-2022 Calcium [Mass/Vol] 8.5 mg/dL 8.2-10.2 [facility] Serum or plasma chloride carlyn surement (moles/volume)Ordered By: Varghese Duval on 06-15-2022 Chloride [Moles/Vol] 98 mmol/L 95-114 [facility] Serum or plasma glucose ledy urement (mass/volume)Ordered By: Vargehse Duval on 06-15-2022 Glucose [Mass/Vol] 74 mg/dL 70-100 [facility] Comment on above: ADA recommended refe rence rangeRandom Glucose Reference Range is dependent on time and content of last meal. Glucose of more than 200 mg/dL in a nonstressed, ambulatory subject supports the diagnosis of Diabetes Mellitus. Serum or plasma potassium me asurement (moles/volume)Ordered By: Varghese Duval on 06-15-2022 Potassium [Moles/Vol] 4.2 mmol/L 3.5-5.1 [facility] Serum or plasma sodium measu rement (moles/volume)Ordered By: Varghese Duval on 06-15-2022 Sodium [Moles/Vol] 129 mmol/L 136-146 [facility] Serum or plasma total carbon dioxide measurement (moles/volume)Ordered By: Varghese Duval on 06-15-2022 CO2 [Moles/Vol] 20.8 mmol/L 22.0-30.0 [facility] Serum or plasma urea nitroge n measurement (mass/volume)Ordered By: Varghese Duval on 06-15-2022 Urea nitrogen [Mass/Vol] 4 mg/dL 9-23 [facility] Specific gravity Auto test s trip (U) [Rel density]Ordered By: Varghese Duval on 06-15-2022 Specific gravity (U) [Rel density] 1.008 1.001-1.030 [facility] Urine clarity by refractomet ry automatedOrdered By: Varghese Duval on 06-15-2022 Clarity Refractometry automated (U) Clear Clear [facility] Urine glucose measurement by automated test strip (mass/volume)Ordered By: Varghese Duval on 06-15-2022 Glucose Auto test strip (U) [Mass/Vol] Normal mg/dL Normal [facility] Urine hemoglobin detection b y automated test stripOrdered By: Varghese Duval on 06-15-2022 Hemoglobin Auto test strip Ql (U) Negative Negative [facility] Urine leukocyte esterase det ection by automated test stripOrdered By: Varghese Duval on 06-15-2022 Leukocyte esterase Auto test strip Ql (U) Negative Negative [facility] Urobilinogen Auto test strip (U) [Mass/Vol]Ordered By: Varghese Duval on 06-15-2022 Urobilinogen (U) [Mass/Vol] Normal mg/dL Normal [facility] WBC Auto (Bld) [#/Vol]Ordere d By: Varghese Duval on 06-15-2022 WBC (Bld) [#/Vol] 5.4 10*3/uL 4.1-10.5 [facility] pH Auto test strip (U)Ordere d By: Varghese Duval on 06-15-2022 pH (U) 5.5 [pH] 5.0-9.0 [facility] CT chest w conon 06-01-2022 CT chest w con [facility] [employer] Other CT chest w con [facility] [employer] Other CT chest w con [address] [facility] [employer] Other CT chest w con [place] [id number] [facility] [employer] Other CT chest w con CT Scan Report [facility] [employer] Other CT chest w con Signed [employer] Other CT chest w con Patient: Gustavo Echols N MR#: [id number] [facility] [employer] Other CT chest w con [address] [employer] [address] chest w con : 1965 Acct:[id number] [place] [employer] Other CT chest w con Age/Sex: 57 / M ADM Date: 06/01/[address] [employer] [address] chest w con [facility]: [facility] [employer] [facility] chest w con Attending Dr: Rachid Chase MD [employer] Other CT chest w con Copies to: Rachid whitlock MD [employer] Other CT chest w con Ordering Provider: Narinder Chase MD [employer] Other CT chest w con Date of Service: 06/01/[address] [facility] [address] chest w con CT/CT chest w con: C34.[address] [facility] [address] chest w con CT chest withcontrast [employer] Other CT chest w con TECHNIQUE: Axial adore ging with 2-D reconstruction. 83 cc of [id number] CT exam was performed [employer] Other CT chest w con using one or more th e following dose reduction techniques: Automated exposure control, adjustment of [employer] Other CT chest w con the MA and/or Kv according to patient size, or use of the iterative reconstruction technique. [employer] Other CT chest w con History: History of lung cancer. Chest tightness. Shortness of breath. [employer] Other CT chest w con COMPARISON: 04/10/[address] [employer] [address] chest w con No thyroid abnormali ty [id number] present on the left. [employer] Other CT chest w con Central airway is patent. [employer] Other CT chest w con No esophageal abnormality identified. [employer] Other CT chest w con Heart is not enlarge d. No pericardial effusion is seen. [employer] Other CT chest w con Nonenlarged mediasti nal lymph nodes identified. No hilar mass or adenopathy is seen. [employer] Other CT chest w con No thoracic aortic aneurysm is seen. [employer] Other CT chest w con No lung nodules identified. [employer] Other CT chest w con No infiltrate or congestion identified. Developing medial right middle lobe atelectasis. Large [employer] Other CT chest w con right pleural effusi on redemonstrated. This is similar to prior examination. No pneumothorax seen. [employer] Other CT chest w con Emphysematous change s redemonstrated. [employer] Other CT chest w con No chest wall abnormality seen. The bony structures are intact. [employer] Other CT chest w con Images of the upper abdomen are noncontributory. [employer] Other CT chest w con C T/CT chest w con [employer] Other CT chest w con IMPRESSION: Developi ng medial right middle lobe atelectasis. Continued large right pleural [employer] Other CT chest w con effusion. Emphysema. [employer] Other CT chest w con Impression dictated by: Franklin Gomes M.D.06/01/2022 3:[address] [facility] [address] chest w con Dictation Location: [place] [address] [employer] [address] chest w con Transcribed By: MARU 06/01/[address] [facility] [address] chest w con Dictated By: Franklin Gomes DO 06/01/[address] [facility] [address] chest w con Signed By: dateIITiansnixon t [employer] Other CT chest w con 06/01/22 1520 [employer] Other Creatinine (Bld) [Mass/Vol]O rdered By: Rachid Chase on 06-01-2022 Creatinine [Mass/Vol] 0.8 mg/dL 0.6-1.3 [facility] Comment on above: ER/ESD physician is notified/shown all ISTAT results.Critical values may be confirmed by laboratory testing ifdeemed necessary by ER attending doctor. No Panel InformationOrdered By: Rachid Chase on 06-01-2022 POC Estimated GFR > 60 [facility] Comment on above: GFR estimated refere nce range: According to KDOQI guidelines, <60 ml/min/1.73m2 is sufficient to diagnose a patient with chronic kidney disease. POC Estimated GFR Non- Amer > 60 [facility] Activated partial thrombopla stin time (aPTT) in platelet poor plasma by coagulation aOrdered By: Estela Varma on 04-18-2022 aPTT Coag (PPP) [Time] 44.4 s 25.1-36.5 [facility] Laboratory - CoagulationOrde red By: Estela Varma on 04-18-2022 PT Coag (PPP) [Time] 11.2 s 9.0-12.9 [facility] Platelet poor plasma interna tional normalized ratio (INR) by coagulation assay (relatOrdered By: Estela Varma on 04-18-2022 INR Coag (PPP) [Relative time] 1.0 {INR} [facility] Comment on above: INR Therapeutic [...] 04-18-2022 Platelets (Bld) [#/Vol] 158 10*3/uL 150-450 [facility] Bacterial blood cultureOrder ed By: Tez Irene on 04-15-2022 Bacteria identified Cx Nom (Bld) NO GROWTH 5 DAYS [facility] Bacteria identified Anaer cx Nom (Unsp spec)Ordered By: Tez Irene on 04-14-2022 Anaerobic microbial culture No Anaerobes Isolated 3 Days [facility] ABO and Rh group post transf usion reaction Nom (Bld)Ordered By: Tez Irene on 04-12-2022 Microscopic observation Gram stain Nom (Unsp spec) [facility] Aerobic cultureOrdered By: Krystina Irene on 04-11-2022 Bacteria identified Aer cx Nom (Unsp spec) No Growth 2 Days [facility] Anaerobic cultureOrdered By: Tez Irene on 04-11-2022 Bacteria identified Anaer cx Nom (Unsp spec) No Anaerobes Isolated 3 Days [facility] Body fluid differential cell countOrdered By: Tez Irene on 04-11-2022 Differential panel (Body fld) 4 % [facility] Comment on above: The reference interv al and other method performance specifications have not been established for this body fluid. The test result must be integrated into the clinical context for interpretation. Differential panel (Body fld) 0 % [facility] Comment on above: The reference interv al and other method performance specifications have not been established for this body fluid. The test result must be integrated into the clinical context for interpretation. Body fluid protein measureme nt (mass/volume)Ordered By: Tez Irene on 04-11-2022 Protein (Body fld) [Mass/Vol] 3.8 g/dL [facility] Cells Counted Total [#] in B sarah fluidOrdered By: Tez Irene on 04-11-2022 Cells Counted Total (Body fld) [#] 1147 /uL [facility] Comment on above: The reference interv al and other method performance specifications have not been established for this body fluid. The test result must be integrated into the clinical context for interpretation. Color of Spun Body fluidOrde red By: Tez Irene on 04-11-2022 Color (Spun body fld) [facility] Comment on above: The reference interv al and other method performance specifications have not been established for this body fluid. The test result must be integrated into the clinical context for interpretation. Determination of appearance of body fluidOrdered By: Tez Irene on 04-11-2022 Appearance (Body fld) Hazy [facility] Comment on above: The reference interv al and other method performance specifications have not been established for this body fluid. The test result must be integrated into the clinical context for interpretation. Erythrocytes [#/volume] in B sarah fluid by Automated countOrdered By: Tez Irene on 04-11-2022 RBC Auto (Body fld) [#/Vol] 46989 mm^3 [facility] Comment on above: The reference interv al and other method performance specifications have not been established for this body fluid. The test result must be integrated into the clinical context for interpretation. Evaluation of color of body fluidOrdered By: Tez Irene on 04-11-2022 Color (Body fld) [facility] Comment on above: The reference interv al and other method performance specifications have not been established for this body fluid. The test result must be integrated into the clinical context for interpretation. Gram stain for investigation of transfusion reactionOrdered By: Tez Irene on 04-11-2022 Microscopic observation Gram stain Nom (Unsp spec) [facility] Lactate dehydrogenase measur ement (enzymatic activity/volume)Ordered By: Tez Irene on 04-11-2022 LDH (Unsp spec) [Catalytic activity/Vol] 88 [IU]/mL [facility] Comment on above: No reference range e stablished LDH (Unsp spec) [Catalytic activity/Vol] 100 U/L 45-190 [facility] Manual body fluid eosinophil s/100 leukocytesOrdered By: Tez Irene on 04-11-2022 Eosinophils/100 WBC Manual cnt (Body fld) 0 /100{WBC} 0-3 [facility] Manual body fluid lymphocyte s/100 leukocytesOrdered By: Tez Irene on 04-11-2022 Lymphocytes/100 WBC Manual cnt (Body fld) 61 % [facility] Comment on above: The reference interv al and other method performance specifications have not been established for this body fluid. The test result must be integrated into the clinical context for interpretation. Neutrophils/100 WBC Manual c nt (Body fld)Ordered By: Tez Irene on 04-11-2022 Neutrophils/100 WBC (Body fld) 35 % [facility] Comment on above: The reference interv al and other method performance specifications have not been established for this body fluid. The test result must be integrated into the clinical context for interpretation. Troponin I.cardiac [Mass/vol ume] in Serum or Plasma by High sensitivity methodOrdered By: Tez Irene on 04-11-2022 Troponin I.cardiac High sensitivity method [Mass/Vol] 5 pg/mL 0-20 [facility] Albumin [Mass/volume] in Ser um or PlasmaOrdered By: Kali Longo on 04-10-2022 Albumin [Mass/Vol] 3.3 g/dL 3.2-5.5 [facility] Albumin [Mass/volume] in Ser um or PlasmaOrdered By: Estela Varma on 04-10-2022 Albumin [Mass/Vol] 3.4 g/dL 3.2-5.5 [facility] Bacterial blood cultureOrder ed By: Tez Irene on 04-10-2022 Bacteria identified Cx Nom (Bld) NO GROWTH 5 DAYS [facility] Basophils Auto (Bld) [#/Vol] Ordered By: Kali Longo on 04-10-2022 Basophils (Bld) [#/Vol] 0.1 10*3/uL 0.0-0.2 [facility] Basophils Auto (Bld) [#/Vol] Ordered By: Estela Varma on 04-10-2022 Basophils (Bld) [#/Vol] 0.1 10*3/uL 0.0-0.2 [facility] Basophils/100 WBC Auto (Bld) Ordered By: Kali Longo on 04-10-2022 Basophils/100 WBC (Bld) 1.0 % . [facility] Basophils/100 WBC Auto (Bld) Ordered By: Estela Varma on 04-10-2022 Basophils/100 WBC (Bld) 0.9 % . [facility] Creatinine and Glomerular fi ltration rate.predicted panel (S/P/Bld)Ordered By: Kali Longo on 04-10-2022 Creatinine [Mass/Vol] 0.86 mg/dL 0.64-1.27 [facility] Creatinine and Glomerular fi ltration rate.predicted panel (S/P/Bld)Ordered By: Estela Varma on 04-10-2022 Creatinine [Mass/Vol] 0.92 mg/dL 0.64-1.27 [facility] Eosinophils Auto (Bld) [#/Vo l]Ordered By: Kali Longo on 04-10-2022 Eosinophils (Bld) [#/Vol] 0.1 10*3/uL 0.0-0.45 [facility] Eosinophils Auto (Bld) [#/Vo l]Ordered By: Estela Varma on 04-10-2022 Eosinophils (Bld) [#/Vol] 0.2 10*3/uL 0.0-0.45 [facility] Eosinophils/100 WBC Auto (Bl d)Ordered By: Kali Longo on 04-10-2022 Eosinophils/100 WBC (Bld) 1.5 % . [facility] Eosinophils/100 WBC Auto (Bl d)Ordered By: Estela Varma on 04-10-2022 Eosinophils/100 WBC (Bld) 2.9 % . [facility] Erythrocyte distribution wid th Auto (RBC) [Ratio]Ordered By: Kali Longo on 04-10-2022 Erythrocyte distribution width (RBC) [Ratio] 14.1 % 12.0-14.8 [facility] Erythrocyte distribution wid th Auto (RBC) [Ratio]Ordered By: Estela Varma on 04-10-2022 Erythrocyte distribution width (RBC) [Ratio] 14.6 % 12.0-14.8 [facility] Estimated glomerular filtrat ion rate (GFR) non- AmericanOrdered By: Kali Longo on 04-10-2022 GFR/1.73 sq M.predicted among non-blacks MDRD (S/P/Bld) [Vol rate/Area] > 60 mL/Min [facility] Estimated glomerular filtrat ion rate (GFR) non- AmericanOrdered By: Estela Varma on 04-10-2022 GFR/1.73 sq M.predicted among non-blacks MDRD (S/P/Bld) [Vol rate/Area] > 60 mL/Min [facility] Globulin Calc (S) [Mass/Vol] Ordered By: Kali Longo on 04-10-2022 Globulin (S) [Mass/Vol] 3.1 g/dL [facility] Globulin Calc (S) [Mass/Vol] Ordered By: Estela Varma on 04-10-2022 Globulin (S) [Mass/Vol] 3.1 g/dL [facility] Hematocrit Auto (Bld) [Volum e fraction]Ordered By: Kali Longo on 04-10-2022 Hematocrit (Bld) [Volume fraction] 44.7 % 38.8-50.0 [facility] Hematocrit Auto (Bld) [Volum e fraction]Ordered By: Estela Varma on 04-10-2022 Hematocrit (Bld) [Volume fraction] 46.1 % 38.8-50.0 [facility] Hemoglobin [Mass/volume] in BloodOrdered By: Kali Longo on 04-10-2022 Hemoglobin (Bld) [Mass/Vol] 15.2 g/dL 13.0-17.0 [facility] Hemoglobin [Mass/volume] in BloodOrdered By: Estela Varma on 04-10-2022 Hemoglobin (Bld) [Mass/Vol] 15.5 g/dL 13.0-17.0 [facility] Laboratory - Chemistry and C hemistry - challengeOrdered By: Kali Longo on 04-10-2022 Natriuretic peptide B (Bld) [Mass/Vol] 19.0 pg/mL 5-100 [facility] Laboratory - Hematology and Cell countsOrdered By: aKli Longo on 04-10-2022 Nucleated RBC/100 WBC (Bld) [Ratio] 0.1 % 0-0.5 [facility] Laboratory - Hematology and Cell countsOrdered By: Estela Varma on 04-10-2022 Nucleated RBC/100 WBC (Bld) [Ratio] 0.1 % 0-0.5 [facility] Leukocytes [#/volume] in Blo od by Automated countOrdered By: Kali Longo on 04-10-2022 WBC (Bld) [#/Vol] 6.1 10*3/uL 4.5-11.0 [facility] Leukocytes [#/volume] in Blo od by Automated countOrdered By: Estela Varma on 04-10-2022 WBC (Bld) [#/Vol] 6.3 10*3/uL 4.5-11.0 [facility] Lymphocytes Auto (Bld) [#/Vo l]Ordered By: Kali Longo on 04-10-2022 Lymphocytes (Bld) [#/Vol] 0.9 10*3/uL 1.00-4.8 [facility] Lymphocytes Auto (Bld) [#/Vo l]Ordered By: Estela Varma on 04-10-2022 Lymphocytes (Bld) [#/Vol] 1.0 10*3/uL 1.00-4.8 [facility] Lymphocytes/100 WBC Auto (Bl d)Ordered By: Kali Longo on 04-10-2022 Lymphocytes/100 WBC (Bld) 14.2 % . [facility] Lymphocytes/100 WBC Auto (Bl d)Ordered By: Estela Varma on 04-10-2022 Lymphocytes/100 WBC (Bld) 16.2 % . [facility] MCH Auto (RBC) [Entitic mass ]Ordered By: Kali Longo on 04-10-2022 MCH (RBC) [Entitic mass] 32.9 pg 27.5-35.2 [facility] MCH Auto (RBC) [Entitic mass ]Ordered By: Estela Varma on 04-10-2022 MCH (RBC) [Entitic mass] 32.6 pg 27.5-35.2 [facility] MCHC Auto (RBC) [Mass/Vol]Or dered By: Kali Longo on 04-10-2022 MCHC (RBC) [Mass/Vol] 33.9 g/dL 32.5-35.6 [facility] MCHC Auto (RBC) [Mass/Vol]Or dered By: Estela Varma on 04-10-2022 MCHC (RBC) [Mass/Vol] 33.6 g/dL 32.5-35.6 [facility] MCV Auto (RBC) [Entitic vol] Ordered By: Kali Longo on 04-10-2022 MCV (RBC) [Entitic vol] 96.9 fL 83.5-101 [facility] MCV Auto (RBC) [Entitic vol] Ordered By: Estela Varma on 04-10-2022 MCV (RBC) [Entitic vol] 97.2 fL 83.5-101 [facility] Monocytes Auto (Bld) [#/Vol] Ordered By: Kali Longo on 04-10-2022 Monocytes (Bld) [#/Vol] 0.6 10*3/uL 0.0-0.8 [facility] Monocytes Auto (Bld) [#/Vol] Ordered By: Estela Varma on 04-10-2022 Monocytes (Bld) [#/Vol] 0.5 10*3/uL 0.0-0.8 [facility] Monocytes/100 WBC Auto (Bld) Ordered By: Kali Longo on 04-10-2022 Monocytes/100 WBC (Bld) 9.9 % . [facility] Monocytes/100 WBC Auto (Bld) Ordered By: Estela Varma on 04-10-2022 Monocytes/100 WBC (Bld) 8.6 % . [facility] Neutrophils Auto (Bld) [#/Vo l]Ordered By: Kali Longo on 04-10-2022 Neutrophils (Bld) [#/Vol] 4.5 10*3/uL 1.8-7.7 [facility] Neutrophils Auto (Bld) [#/Vo l]Ordered By: Estela Varma on 04-10-2022 Neutrophils (Bld) [#/Vol] 4.5 10*3/uL 1.8-7.7 [facility] Neutrophils/100 WBC Auto (Bl d)Ordered By: Kali Longo on 04-10-2022 Neutrophils/100 WBC (Bld) 73.4 % . [facility] Neutrophils/100 WBC Auto (Bl d)Ordered By: Estela Varma on 04-10-2022 Neutrophils/100 WBC (Bld) 71.4 % . [facility] No Panel InformationOrdered By: Kali Longo on 04-10-2022 D-Dimer Quantitative (PE/DVT) 529 ng/mL 0-243 [facility] Comment on above: The reference [...] conditions. Estimated GFR () > 60 mL/Min [facility] Comment on above: GFR estimated refere nce range: According to KDOQI guidelines, <60 ml/min/1.73m2 is sufficient to diagnose a patient with chronic kidney disease. Pharmacy Creatinine Clearance (Chem 92.25 [facility] No Panel InformationOrdered By: Estela Varma on 04-10-2022 Estimated GFR () > 60 mL/Min [facility] Comment on above: GFR estimated refere nce range: According to KDOQI guidelines, <60 ml/min/1.73m2 is sufficient to diagnose a patient with chronic kidney disease. Pharmacy Creatinine Clearance (Chem 89.21 [facility] Platelet mean volume Auto (B ld) [Entitic vol]Ordered By: Kali Longo on 04-10-2022 Platelet mean volume (Bld) [Entitic vol] 7.0 fL 6.6-10.1 [facility] Platelet mean volume Auto (B ld) [Entitic vol]Ordered By: Estela Varma on 04-10-2022 Platelet mean volume (Bld) [Entitic vol] 7.4 fL 6.6-10.1 [facility] Platelets Auto (Bld) [#/Vol] Ordered By: Kali Longo on 04-10-2022 Platelets (Bld) [#/Vol] 242 10*3/uL 150-450 [facility] Platelets Auto (Bld) [#/Vol] Ordered By: Estela Varma on 04-10-2022 Platelets (Bld) [#/Vol] 239 10*3/uL 150-450 [facility] Protein [Mass/volume] in Ser um or PlasmaOrdered By: Kali Longo on 04-10-2022 Protein [Mass/Vol] 6.4 g/dL 6.1-7.9 [facility] Protein [Mass/volume] in Ser um or PlasmaOrdered By: Estela Varma on 04-10-2022 Protein [Mass/Vol] 6.5 g/dL 6.1-7.9 [facility] RBC Auto (Bld) [#/Vol]Ordere d By: Kali Longo on 04-10-2022 RBC (Bld) [#/Vol] 4.61 10*6/uL 3.90-5.60 [facility] RBC Auto (Bld) [#/Vol]Ordere d By: Estela Varma on 04-10-2022 RBC (Bld) [#/Vol] 4.75 10*6/uL 3.90-5.60 [facility] Serum or plasma alanine glynn otransferase measurement without P-5'-P (enzymatic activiOrdered By: Kali Longo on 04-10-2022 ALT No additional P-5'-P [Catalytic activity/Vol] 13 U/L [facility] Serum or plasma alanine glynn otransferase measurement without P-5'-P (enzymatic activiOrdered By: Estela Varma on 04-10-2022 ALT No additional P-5'-P [Catalytic activity/Vol] 14 U/L [facility] Serum or plasma albumin/glob ulin mass ratioOrdered By: Kali Longo on 04-10-2022 Albumin/Globulin [Mass ratio] 1.1 {ratio} [facility] Serum or plasma albumin/glob ulin mass ratioOrdered By: Estela Varma on 04-10-2022 Albumin/Globulin [Mass ratio] 1.1 {ratio} [facility] Serum or plasma alkaline abhijit sphatase measurement (enzymatic activity/volume)Ordered By: Kali Longo on 04-10-2022 ALP [Catalytic activity/Vol] 127 U/L [facility] Serum or plasma alkaline abhijit sphatase measurement (enzymatic activity/volume)Ordered By: Estela Varma on 04-10-2022 ALP [Catalytic activity/Vol] 128 U/L [facility] Serum or plasma anion gap de terminationOrdered By: Kali Longo on 04-10-2022 Anion gap [Moles/Vol] 15.8 mmol/L 6.0-15.0 [facility] Serum or plasma anion gap de terminationOrdered By: Estela Varma on 04-10-2022 Anion gap [Moles/Vol] 17.3 mmol/L 6.0-15.0 [facility] Serum or plasma aspartate am inotransferase measurement (enzymatic activity/volume)Ordered By: Kali Longo on 04-10-2022 AST [Catalytic activity/Vol] 19 U/L [facility] Serum or plasma aspartate am inotransferase measurement (enzymatic activity/volume)Ordered By: Estela Varma on 04-10-2022 AST [Catalytic activity/Vol] 19 U/L [facility] Serum or plasma calcium ledy urement (mass/volume)Ordered By: Kali Longo on 04-10-2022 Calcium [Mass/Vol] 8.5 mg/dL 8.2-10.2 [facility] Serum or plasma calcium ledy urement (mass/volume)Ordered By: Estela Varma on 04-10-2022 Calcium [Mass/Vol] 8.5 mg/dL 8.2-10.2 [facility] Serum or plasma carcinoembry onic antigen measurement (mass/volume)Ordered By: Estela Varma on 04-10-2022 Carcinoembryonic Ag [Mass/Vol] 10.5 ng/mL 0.0-3.0 [facility] Serum or plasma chloride carlyn surement (moles/volume)Ordered By: Kali Longo on 04-10-2022 Chloride [Moles/Vol] 95 mmol/L 95-114 [facility] Serum or plasma chloride carlyn surement (moles/volume)Ordered By: Estela Varma on 04-10-2022 Chloride [Moles/Vol] 98 mmol/L 95-114 [facility] Serum or plasma glucose ledy urement (mass/volume)Ordered By: Kali Longo on 04-10-2022 Glucose [Mass/Vol] 75 mg/dL 70-100 [facility] Comment on above: ADA recommended refe rence rangeRandom Glucose Reference Range is dependent on time and content of last meal. Glucose of more than 200 mg/dL in a nonstressed, ambulatory subject supports the diagnosis of Diabetes Mellitus. Serum or plasma glucose ledy urement (mass/volume)Ordered By: Estela Varma on 04-10-2022 Glucose [Mass/Vol] 73 mg/dL 70-100 [facility] Comment on above: ADA recommended refe rence rangeRandom Glucose Reference Range is dependent on time and content of last meal. Glucose of more than 200 mg/dL in a nonstressed, ambulatory subject supports the diagnosis of Diabetes Mellitus. Serum or plasma potassium me asurement (moles/volume)Ordered By: Kali Longo on 04-10-2022 Potassium [Moles/Vol] 4.2 mmol/L 3.5-5.1 [facility] Serum or plasma potassium me asurement (moles/volume)Ordered By: Estela Varma on 04-10-2022 Potassium [Moles/Vol] 4.0 mmol/L 3.5-5.1 [facility] Serum or plasma sodium measu rement (moles/volume)Ordered By: Kali Longo on 04-10-2022 Sodium [Moles/Vol] 130 mmol/L 136-146 [facility] Serum or plasma sodium measu rement (moles/volume)Ordered By: Estela Varma on 04-10-2022 Sodium [Moles/Vol] 131 mmol/L 136-146 [facility] Serum or plasma total biliru bin measurement (mass/volume)Ordered By: Kali Longo on 04-10-2022 Bilirubin [Mass/Vol] 0.6 mg/dL 0.3-1.2 [facility] Serum or plasma total biliru bin measurement (mass/volume)Ordered By: Estela Varma on 04-10-2022 Bilirubin [Mass/Vol] 0.7 mg/dL 0.3-1.2 [facility] Serum or plasma total carbon dioxide measurement (moles/volume)Ordered By: Kali Longo on 04-10-2022 CO2 [Moles/Vol] 23.4 mmol/L 22.0-30.0 [facility] Serum or plasma total carbon dioxide measurement (moles/volume)Ordered By: Estela Varma on 04-10-2022 CO2 [Moles/Vol] 19.7 mmol/L 22.0-30.0 [facility] Serum or plasma urea nitroge n measurement (mass/volume)Ordered By: Kali Longo on 04-10-2022 Urea nitrogen [Mass/Vol] 7 mg/dL 02-03 [facility] Serum or plasma urea nitroge n measurement (mass/volume)Ordered By: Estela Varma on 04-10-2022 Urea nitrogen [Mass/Vol] 7 mg/dL 02-03 [facility] TSH DL <= 0.005 mIU/L QnOrde red By: Estela Varma on 04-10-2022 TSH Qn 2.57 m[IU]/L 0.45-5.33 [facility] Troponin I.cardiac [Mass/vol ume] in Serum or Plasma by High sensitivity methodOrdered By: Kali Longo on 04-10-2022 Troponin I.cardiac High sensitivity method [Mass/Vol] 5 pg/mL 0-20 [facility] Creatinine and Glomerular fi ltration rate.predicted panel (S/P/Bld)Ordered By: Estela Varma on 01-03-2022 Creatinine [Mass/Vol] 0.69 mg/dL 0.64-1.27 [facility] Estimated glomerular filtrat ion rate (GFR) non- AmericanOrdered By: Estela Varma on 01-03-2022 GFR/1.73 sq M.predicted among non-blacks MDRD (S/P/Bld) [Vol rate/Area] > 60 mL/Min [facility] No Panel InformationOrdered By: Estela Varma on 01-03-2022 Estimated GFR () > 60 mL/Min [facility] Comment on above: GFR estimated refere nce range: According to KDOQI guidelines, <60 ml/min/1.73m2 is sufficient to diagnose a patient with chronic kidney disease. Pharmacy Creatinine Clearance (Chem 122.86 [facility] Serum or plasma urea nitroge n measurement (mass/volume)Ordered By: Estela Varma on 01-03-2022 Urea nitrogen [Mass/Vol] 3 mg/dL 02-03 [facility] Office Visit (Cardiology)on 11-29-2021 Follow-up visit Diagnoses/Problems Assessed Lung cancer (162.9) (C34.90) Chest pain (786.50) (R07.9) Former smoker (V15.82) (Z87.891) quit 2020 1ppd Body mass index (BMI) of 20.0 to 20.9 in adult (V85.1) (Z68.20) COPD (chronic obstructive pulmonary disease) (496) (J44.9) Orders Health Maintenance Depression Follow-up Visit Outpatient Follow-up Status: Complete Done: [id number] SocHx: Former smoker Tobacco Use Screening; Status:Complete; Done: [id number] Patient Instructions By signing my name below, [...] Complaint Follow up Heart Cath results. 56-year-old Afro-[place] gentleman returns with chief complaints of chest [...] catheterization performed this year Recommendations: We did drug counselor him on seeking further assistance in [...] negative for complaint. Vitals Vital Signs Recorded: [id number] 09:05AM Heart Rate96, R Radial Neucyocb630, RUE, Sitting Nhfnpdvit70, RUE, Sitting Blood Pressure Cuff SizeAdult Height6 ft Phsgjy598 lb 8 oz BMI Fszvupexij31.28 kg/m2 BSA Calculated1.88 Tobacco Useb) No (more content not included)... Normal [facility] CARDIAC SONIA 3-6on 2 CK [Catalytic activity/Vol] 55 U/L Normal 39-308 [facility] Comment on above: Performed By: #### C MREP #### [facility] [address] [address] [address] Sushant Pradhan CK.MB [Mass/Vol] 1.25 ng/mL Normal <=3.60 [facility] Comment on above: Performed By: #### C MREP #### [facility] [address] [address] [address] Sushant Pradhan HSTROP 4.5 pg/mL Normal 4.0-76.1 [facility] Comment on above: Result Comment: CUT- OFF POINTS HAVE BEEN ESTABLISHED BASED ON THE FOURTH UNIVERSAL DEFINITIONS OF MYOCARDIAL INFARCTION. THE UPPER REFERENCE LIMIT (URL) OF TROPONIN, DEFINED THE 99TH PERCENTILE OF cTnI DISTRIBUTION IN A REFERENCE POPULATION, HAS BEEN CONFIRMED THE DECISION THRESHOLD FOR [place] DIAGNOSIS. Performed By: #### C MREP #### [facility] [address] [address] [address] Sushant Pradhan CBC AUTO DIFFon 11-24-2021 BASO # 0.0 103/ul Normal 0.0-0.1 [facility] Comment on above: Performed By: #### C BC #### [facility] [address] [address] [address] Sushant Pradhan Basophils/100 WBC (Bld) 0.2 % Normal 0.2-2.0 [facility] Comment on above: Performed By: #### C BC #### [facility] [address] [place] [address] Dr. Sushant Pradhan EO # 0.0 103/ul Normal 0.0-0.7 [facility] Comment on above: Performed By: #### C BC #### [facility] [address] [place] [address] Dr. Sushant Pradhan Eosinophils/100 WBC (Bld) 0.0 % Critically low 0.9-7.0 [facility] Comment on above: Performed By: #### C BC #### [facility] [address] [place] [address] Dr. Sushant Pradhan Erythrocyte distribution width (RBC) [Ratio] 14.7 % Normal 11.0-15.0 [facility] Comment on above: Performed By: #### C BC #### [facility] [address] [place] [address] Dr. Sushant Pradhan Hematocrit (Bld) [Volume fraction] 35.5 % Critically low 42.0-54.0 [facility] Comment on above: Performed By: #### C BC #### [facility] [address] [place] [address] Dr. Sushant Pradhan Hemoglobin (Bld) [Mass/Vol] 12.8 g/dL Critically low 14.0-18.0 [facility] Comment on above: Performed By: #### C BC #### [facility] [address] [place] [address] Dr. Sushant Pradhan IG # 0.01 10e3/ul Normal 0.00-0.03 [facility] Comment on above: Performed By: #### C BC #### [facility] [address] [place] [address] Dr. Sushant Pradhan IG % 0.2 % Normal 0.0-0.5 [facility] Comment on above: Performed By: #### C BC #### [facility] [address] [address] [address] Sushant Pradhan LYMPH # 0.5 103/ul Critically low 1.2-3.8 [facility] Comment on above: Performed By: #### C BC #### [facility] [address] [place] [address] Dr. Sushant Pradhan Lymphocytes/100 WBC (Bld) 8.2 % Critically low 20.5-60.0 [facility] Comment on above: Performed By: #### C BC #### [facility] [address] [place] [address] Dr. Sushant Pradhan MANUAL DIFF REQ NO Normal [facility] Comment on above: Performed By: #### C BC #### [facility] [address] [place] [address] Dr. Sushant Pradhan MCH (RBC) [Entitic mass] 32.5 pg Normal 25.9-34.0 [facility] Comment on above: Performed By: #### C BC #### [facility] [address] [place] [address] Dr. Sushant Pradhan MCHC (RBC) [Mass/Vol] 36.1 g/dL Critically high 29.9-35.2 [facility] Comment on above: Performed By: #### C BC #### [facility] [address] [place] [address] Dr. Sushant Pradhan MCV (RBC) [Entitic vol] 90.1 fL Normal 80.0-94.0 [facility] Comment on above: Performed By: #### C BC #### [facility] [address] [place] [address] Dr. Sushant Pradhan MONO # 0.2 103/ul Critically low 0.3-0.8 [facility] Comment on above: Performed By: #### C BC #### [facility] [address] [place] [address] Dr. Sushant Pradhan Monocytes/100 WBC (Bld) 3.5 % Normal 1.7-12.0 [facility] Comment on above: Performed By: #### C BC #### [facility] [address] [address] [address] Sushant Pradhan NEUT # 4.8 103/ul Normal 1.4-6.5 [facility] Comment on above: Performed By: #### C BC #### [facility] [address] [address] [address] Sushant Pradhan Neutrophils/100 WBC (Bld) 87.9 % Critically high 43.0-75.0 [facility] Comment on above: Performed By: #### C BC #### [facility] [address] [place] [address] Dr. Sushant Pradhan Platelet mean volume (Bld) [Entitic vol] 9.4 fL Critically low 9.5-13.5 [facility] Comment on above: Performed By: #### C BC #### [facility] [address] [place] [address] Dr. Sushant Pradhan PLT 135 103/ul Critically low 150-450 [facility] Comment on above: Performed By: #### C BC #### [facility] [address] [place] [address] Dr. Sushant Pradhan RBC 3.94 106/ul Critically low 4.70-6.10 [facility] Comment on above: Performed By: #### C BC #### [facility] [address] [place] [address] Dr. Sushant Pradhan WBC 5.5 103/ul Normal 4.0-11.0 [facility] Comment on above: Performed By: #### C BC #### [facility] [address] [place] [address] Dr. Sushant Pradhan LIPID PROFILEon 11-24-2021 CHOL-HDL RATIO NORM SEE BELOW Normal [facility] Comment on above: Result Comment: 3.3 - 4.4 LOW RISK 4.4 - 7.1 AVERAGE RISK 7.1 - 11.0 MODERATE RISK >11.0 HIGH RISK Performed By: #### L IPID, BMP #### [facility] [address] [place] [address] Dr. Sushant Pradhan Cholesterol [Mass/Vol] 126 mg/dL Normal <=200 [facility] Comment on above: Performed By: #### L IPID, BMP #### [facility] [address] [address] [address] Sushant Pradhan Cholesterol in HDL [Mass/Vol] 73 mg/dL Critically high 40-60 [facility] Comment on above: Performed By: #### L IPID, BMP #### [facility] [address] [address] [address] Sushant Pradhan Cholesterol in LDL [Mass/Vol] 44.2 mg/dL Normal [facility] Comment on above: Performed By: #### L IPID, BMP #### [facility] [address] [place] [address] Dr. Sushant Pradhan Cholesterol.total/Cho lesterol in HDL [Mass ratio] 1.7 {ratio} Normal [facility] Comment on above: Performed By: #### L IPID, BMP #### [facility] [address] [address] [address] Sushant Pradhan HDL NORMAL > or = 60 mg/dl - LO W CARDIOVASCULAR RISK <40 mg/dl - HIGH CARDIOVASCULAR RISK Normal [facility] Comment on above: Performed By: #### L IPID, BMP #### [facility] [address] [place] [address] Dr. Sushant Pradhan LDL CALC NORMAL SEE BELOW Normal [facility] Comment on above: Result Comment: <100 mg/dl OPTIMAL 100 - 129 mg/dl NEAR OR ABOVE OPTIMAL 130 - 159 mg/dl BORDERLINE HIGH 160 - 189 mg/dl HIGH >190 mg/dl VERY HIGH Performed By: #### L IPID, BMP #### [facility] [address] [place] [address] Dr. Sushant Pradhan Triglyceride [Mass/Vol] 44 mg/dL Normal <=150 [facility] Comment on above: Performed By: #### L IPID, BMP #### [facility] [address] [address] [address] Sushant Pradhan VLDL CALC 8.8 mg/dL Normal [facility] Comment on above: Performed By: #### L IPID, BMP #### [facility] [address] [address] [address] Sushant Pradhan NM STRESS/REST MULTIon 11-24 NM STRESS/REST MULTI Patient: EDISON ECHOLS Exam Date: 11/24/2021 : 1965 Gender:M Ordering : DR KRISHAN LARA . Admission #: [id number] Family : Order #: [id number] CLICK HERE TO VIEW EXAM RADIOLOGY REPORT [...] MD on 11/24/2021 at 15:06 Normal [facility] PROF CHEM 8 (BAS METB)on Anion gap [Moles/Vol] 10.7 mmol/L Normal [facility] Comment on above: Performed By: #### L IPID, BMP #### [facility] [address] [address] [address] Sushant Pradhan Calcium [Mass/Vol] 8.5 mg/dL Normal 8.5-10.[address] [facility] Comment on above: Performed By: #### L IPID, BMP #### [facility] [address] [address] [address] Sushant Pradhan Chloride [Moles/Vol] 96 mmol/L Critically low 98-107 [facility] Comment on above: Performed By: #### L IPID, BMP #### [facility] [address] [address] [address] Sushant Pradhan CO2 [Moles/Vol] 22.0 mmol/L Normal 21.0-32.0 [facility] Comment on above: Performed By: #### L IPID, BMP #### [facility] [address] [address] [address] Sushant Pradhan Creatinine [Mass/Vol] 1.04 mg/dL Normal 0.70-1.30 [facility] Comment on above: Performed By: #### L IPID, BMP #### [facility] [address] [place] [address] Dr. Sushant Pradhan EGFR-AF ARMENIAN >60 Normal >=60 [facility] Comment on above: Performed By: #### L IPID, BMP #### [facility] [address] [address] [address] Sushant Pradhan EGFR-NON AF ARMENIAN >60 Normal >=60 [facility] Comment on above: Performed By: #### L IPID, BMP #### [facility] [address] [address] [address] Sushant Pradhan Glucose [Mass/Vol] 139 mg/dL Critically high 74-106 [facility] Comment on above: Performed By: #### L IPID, BMP #### [facility] [address] [address] [address] Sushant Pradhan Potassium [Moles/Vol] 4.2 mmol/L Normal 3.5-5.1 [facility] Comment on above: Performed By: #### L IPID, BMP #### [facility] [address] [address] [address] Sushant Pradhan Sodium [Moles/Vol] 127 mmol/L Critically low 136-145 [facility] Comment on above: Performed By: #### L IPID, BMP #### [facility] [address] [place] [address] Dr. Sushant Pradhan Urea nitrogen [Mass/Vol] 12.0 mg/dL Normal 7.0-18.0 [facility] Comment on above: Performed By: #### L IPID, BMP #### [facility] [address] [place] [address] Dr. Sushant Pradhan Urea nitrogen/Creatinine [Mass ratio] 11.5 mg/mg Normal [facility] Comment on above: Performed By: #### L IPID, BMP #### [facility] [address] [place] [address] Dr. Sushant Pradhan BNPon 11-23-2021 Natriuretic peptide B (Bld) [Mass/Vol] 189.0 pg/mL Normal <=900.0 [facility] Comment on above: Performed By: #### B CHARGE ATTENDANT, HSTROPN, BMP #### [facility] [address] [place] [address] Dr. Sushant Pradhan CARDIAC SONIA 3-6on 2 CK [Catalytic activity/Vol] 73 U/L Normal 39-308 [facility] Comment on above: Performed By: #### C MREP #### [facility] [address] [place] [address] Dr. Sushant Pradhan CK.MB [Mass/Vol] 1.78 ng/mL Normal <=3.60 [facility] Comment on above: Performed By: #### C MREP #### [facility] [address] [place] [address] Dr. Sushant Pradhan HSTROP 4.2 pg/mL Normal 4.0-76.1 [facility] Comment on above: Result Comment: CUT- OFF POINTS HAVE BEEN ESTABLISHED BASED ON THE FOURTH UNIVERSAL DEFINITIONS OF MYOCARDIAL INFARCTION. THE UPPER REFERENCE LIMIT (URL) OF TROPONIN, DEFINED THE 99TH PERCENTILE OF cTnI DISTRIBUTION IN A REFERENCE POPULATION, HAS BEEN CONFIRMED THE DECISION THRESHOLD FOR [place] DIAGNOSIS. Performed By: #### C MREP #### [facility] [address] [place] [address] Dr. Sushant Pradhan CBC AUTO DIFFon 11-23-2021 BASO # 0.0 103/ul Normal 0.0-0.1 [facility] Comment on above: Performed By: #### C BC #### [facility] [facility] [address] [place] [address] Dr. Sushant Pradhan Basophils/100 WBC (Bld) 0.5 % Normal 0.2-2.0 [facility] Comment on above: Performed By: #### C BC #### [facility] [address] [place] [address] Dr. Sushant Pradhan EO # 0.1 103/ul Normal 0.0-0.7 [facility] Comment on above: Performed By: #### C BC #### [facility] [address] [place] [address] Dr. Sushant Pradhan Eosinophils/100 WBC (Bld) 0.9 % Normal 0.9-7.0 [facility] Comment on above: Performed By: #### C BC #### [facility] [address] [place] [address] Dr. Sushant Pradhan Erythrocyte distribution width (RBC) [Ratio] 15.3 % Critically high 11.0-15.0 [facility] Comment on above: Performed By: #### C BC #### [facility] [address] [place] [address] Dr. Sushant Pradhan Hematocrit (Bld) [Volume fraction] 38.7 % Critically low 42.0-54.0 [facility] Comment on above: Performed By: #### C BC #### [facility] [address] [place] [address] Dr. Sushant Pradhan Hemoglobin (Bld) [Mass/Vol] 14.0 g/dL Normal 14.0-18.0 [facility] Comment on above: Performed By: #### C BC #### [facility] [address] [place] [address] Dr. Sushant Pradhan IG # 0.01 10e3/ul Normal 0.00-0.03 [facility] Comment on above: Performed By: #### C BC #### [facility] [address] [place] [address] Dr. Sushant Pradhan IG % 0.2 % Normal 0.0-0.5 [facility] Comment on above: Performed By: #### C BC #### [facility] [address] [place] [address] Dr. Sushant Pradhan LYMPH # 1.1 103/ul Critically low 1.2-3.8 [facility] Comment on above: Performed By: #### C BC #### [facility] [address] [place] [address] Dr. Sushant Pradhan Lymphocytes/100 WBC (Bld) 17.2 % Critically low 20.5-60.0 [facility] Comment on above: Performed By: #### C BC #### [facility] [address] [place] [address] Dr. Sushant Pradhan MANUAL DIFF REQ NO Normal [facility] Comment on above: Performed By: #### C BC #### [facility] [address] [place] [address] Dr. Sushant Pradhan MCH (RBC) [Entitic mass] 32.7 pg Normal 25.9-34.0 [facility] Comment on above: Performed By: #### C BC #### [facility] [address] [place] [address] Dr. Sushant Pradhan MCHC (RBC) [Mass/Vol] 36.2 g/dL Critically high 29.9-35.2 [facility] Comment on above: Performed By: #### C BC #### [facility] [address] [place] [address] Dr. Sushant Pradhan MCV (RBC) [Entitic vol] 90.4 fL Normal 80.0-94.0 [facility] Comment on above: Performed By: #### C BC #### [facility] [address] [place] [address] Dr. Sushant Pradhan MONO # 0.5 103/ul Normal 0.3-0.8 [facility] Comment on above: Performed By: #### C BC #### [facility] [address] [place] [address] Dr. Sushant Pradhan Monocytes/100 WBC (Bld) 7.8 % Normal 1.7-12.0 [facility] Comment on above: Performed By: #### C BC #### [facility] [address] [place] [address] Dr. Sushant Pradhan NEUT # 4.7 103/ul Normal 1.4-6.5 [facility] Comment on above: Performed By: #### C BC #### [facility] [address] [place] [address] Dr. Sushant Pradhan Neutrophils/100 WBC (Bld) 73.4 % Normal 43.0-75.0 [facility] Comment on above: Performed By: #### C BC #### [facility] [address] [place] [address] Dr. Sushant Pradhan Platelet mean volume (Bld) [Entitic vol] 9.1 fL Critically low 9.5-13.5 [facility] Comment on above: Performed By: #### C BC #### [facility] [address] [place] [address] Dr. Sushant Pradhan PLT 153 103/ul Normal 150-450 [facility] Comment on above: Performed By: #### C BC #### [facility] [address] [place] [address] Dr. Sushant Pradhan RBC 4.28 106/ul Critically low 4.70-6.10 [facility] Comment on above: Performed By: #### C BC #### [facility] [address] [place] [address] Dr. Sushant Pradhan WBC 6.4 103/ul Normal 4.0-11.0 [facility] Comment on above: Performed By: #### C BC #### [facility] [address] [place] [address] Dr. Sushant Pradhan CTA CHEST WO W [...] Date: 2021-11-23 15:47 Normal [facility] Covid-19 PCR (CVDTB)on 11-11 SARS-CoV-2 (COVID-19) RNA DEANA+probe Ql (Unsp spec) Not detected Normal NOT DETECTED [facility] Comment [...] for this test is supported by the [employer]'s declaration [...] By: #### C BC #### [facility] [address] [place] [address] Dr. Sushant Pradhan PROF CHEM 8 (BAS METB)on Anion gap [Moles/Vol] 13.9 mmol/L Normal [facility] Comment on above: Performed By: #### B CHARGE ATTENDANT, HSTROPN, BMP #### [facility] [address] [place] [address] Dr. Sushant Pradhan Calcium [Mass/Vol] 8.4 mg/dL Critically low 8.5-10.1 [facility] e [facility] Comment on above: Performed By: #### B CHARGE ATTENDANT, HSTROPN, BMP #### [facility] [address] [place] [address] Dr. Sushant Pradhan Chloride [Moles/Vol] 94 mmol/L Critically low 98-107 [facility] Comment on above: Performed By: #### B CHARGE ATTENDANT, HSTROPN, BMP #### [facility] [address] [place] [address] Dr. Sushant Pradhan CO2 [Moles/Vol] 24.7 mmol/L Normal 21.0-32.0 [facility] Comment on above: Performed By: #### B CHARGE ATTENDANT, HSTROPN, BMP #### [facility] [address] [place] [address] Dr. Sushant Pradhan Creatinine [Mass/Vol] 0.97 mg/dL Normal 0.70-1.30 [facility] Comment on above: Performed By: #### B CHARGE ATTENDANT, HSTROPN, BMP #### [facility] [address] [place] [address] Dr. Sushant Pradhan EGFR-AF ARMENIAN >60 Normal >=60 [facility] Comment on above: Performed By: #### B CHARGE ATTENDANT, HSTROPN, BMP #### [facility] [address] [place] [address] Dr. Sushant Pradhan EGFR-NON AF ARMENIAN >60 Normal >=60 [facility] Comment on above: Performed By: #### B CHARGE ATTENDANT, HSTROPN, BMP #### [facility] [address] [place] [address] Dr. Sushant Pradhan Glucose [Mass/Vol] 76 mg/dL Normal 74-[address] [facility] Comment on above: Performed By: #### B CHARGE ATTENDANT, HSTROPN, BMP #### [facility] [address] [place] [address] Dr. Sushant Pradhan Potassium [Moles/Vol] 4.6 mmol/L Normal 3.5-5.1 [facility] Comment on above: Performed By: #### B CHARGE ATTENDANTDEMETRITRKALEN, BMP #### [facility] [address] [place] [address] Dr. Sushant Pradhan Sodium [Moles/Vol] 128 mmol/L Critically low 136-145 Th e [facility] Comment on above: Performed By: #### B CHARGE ATTENDANT, HSTROPN, BMP #### [facility] [address] [place] [address] Dr. Sushant Pradhan Urea nitrogen [Mass/Vol] 9.0 mg/dL Normal 7.0-18.0 [facility] Comment on above: Performed By: #### B CHARGE ATTENDANT, HSTRKALEN, BMP #### [facility] [address] [place] [address] Dr. Sushant Pradhan Urea nitrogen/Creatinine [Mass ratio] 9.3 mg/mg Normal [facility] Comment on above: Performed By: #### B CHARGE ATTENDANT, HSTROPN, BMP #### [facility] [address] [place] [address] Dr. Sushant Pradhan TROPONIN, HIGH SENSITIVITYon 11-23-2021 HSTROP 4.4 pg/mL Normal 4.0-76.1 [facility] Comment on above: Result Comment: CUT- OFF POINTS HAVE BEEN ESTABLISHED BASED ON THE FOURTH UNIVERSAL DEFINITIONS OF MYOCARDIAL INFARCTION. THE UPPER REFERENCE LIMIT (URL) OF TROPONIN, DEFINED THE 99TH PERCENTILE OF cTnI DISTRIBUTION IN A REFERENCE POPULATION, HAS BEEN CONFIRMED THE DECISION THRESHOLD FOR [place] DIAGNOSIS. Performed By: #### B CHARGE ATTENDANT, HSTROPN, BMP #### [facility] [address] [place] [address] Dr. Sushant Pradhan Laboratory - Chemistry and C hemistry - challengeon 09-09-2021 Cholesterol [Mass/Vol] 125\S\125 below low threshold 140-200 -[facility] [address] DO Work Phone: Comment on above: Chol less than 200 m g/dl low risk Chol 201-239 mg/dl borderline risk Chol 240 mg/dl and greater high risk Cholesterol in LDL [Mass/Vol] 46\S\46 Normal 0-100 [facility] y 250 DO Work Phone: Comment [...] DO Work Phone: Comment on above: PERFORMED BY:[place] [address] [place], [place] [phone] MEDICAL DIRECTORCATY DELCID M.D. 1.0\S\1.0 Normal [facility] 250 [...] valves: 3 - 4.5 11.5\S\11.5 Normal 9.0-12.9 [facility] 250 DO Work Phone: 1.8\S\1.8 Normal <5.0 [facility] 250 DO Work Phone: Comment on above: PERFORMED BY:[address] [place], [place] [id number] MEDICAL DIRECTORJIANLAN SUN M.D. 11\S\11 [facility] Work Phone: 57\S\57 Normal 35-149 [facility] Work Phone: Comment on above: TRIG ATP III CLASSIF ICATION TRIG less than 150 mg/dL Normal TRIG 150-199 mg/dL Borderline high TRIG 200-500 mg/dL High TRIG greater than 500 mg/dL Very high Standard traceable to the Center for Disease Conrtrol and Prevention (CDC) test method. 68\S\68 Normal 29-[address] [facility] Miya y 250 DO Work Phone: Comment on above: HDL CHOL ATP-III CLA SSIFICATION Cardiovascular Risk HDL > or equal to 60 mg/dL LOW HDL < 40 mg/dL HIGH Negative Normal Negative [facility] Work Phone: Comment on above: This is a duplicate Jonna SARS Antigen (EROS) result to be used for statistical tracking purpose only.PERFORMED BY:[facility] [place], [place] [phone] MEDICAL DIRECTORCATY DELCID M.D. Office Visit (Cardiology)on [...] Screen Positive; Status:Complete - Retrospective Authorization; Done: [id number] SocHx: Former smoker Tobacco Use Screening; Status:Complete; Done: [id number] Patient Instructions By signing my name below, I, Karin Mellissa COTA,Darin, attest that this documentation has been prepared [...] pain and dyspnea. Patient is a 56-year-old -[place] gentleman returns and seen in cardiology consultation [...] negative for complaint. Vitals Vital Signs Recorded: [id number] 10:09AMRecorded: [id number] 10:05AM [id number], LUE, Eympziu689, RUE, Sitting [id number], LUE, Yyfiooz50, RUE, Sitting Heart Rate96, Apical Height6 ft Unzhsv162 lb BMI Frirzrvdiv59.16 kg/m2 BSA (more content not included)... Normal [facility] Tobacco Screening.on 022 Adult depression screening assessment [facility] DO Work Phone: Fall risk assessment c) Not medically indicated [facility] 250 DO Work Phone: Tobacco use status CP b) No [facility] SMS [facility]istusk y 250 DO Work Phone: Tobacco Screening. 3-Nearly every day [facility] 250 DO Work Phone: Tobacco Screening. 2-More than half the days [facility] 250 DO Work Phone: Tobacco Screening. 0-Not at all [facility] 250 DO Work Phone: Tobacco Screening. Extremely Difficult [facility] 250 DO Work Phone: Albumin [Mass/volume] in Ser um or PlasmaOrdered By: Estela Varma on 09-02-2021 Albumin [Mass/Vol] 3.8 g/dL 3.2-5.5 [facility] Basophils Auto (Bld) [#/Vol] Ordered By: Estela Varma on 09-02-2021 Basophils (Bld) [#/Vol] 0.0 10*3/uL 0.0-0.2 [facility] Basophils/100 WBC Auto (Bld) Ordered By: Estela Varma on 09-02-2021 Basophils/100 WBC (Bld) 0.7 % . [facility] Eosinophils Auto (Bld) [#/Vo l]Ordered By: Estela Varma on 09-02-2021 Eosinophils (Bld) [#/Vol] 0.2 10*3/uL 0.0-0.45 [facility] Eosinophils/100 WBC Auto (Bl d)Ordered By: Estela Varma on 09-02-2021 Eosinophils/100 WBC (Bld) 4.2 % . [facility] Erythrocyte distribution wid th Auto (RBC) [Ratio]Ordered By: Estela Varma on 09-02-2021 Erythrocyte distribution width (RBC) [Ratio] 15.7 % 12.0-14.8 [facility] Globulin Calc (S) [Mass/Vol] Ordered By: Estela Varma on 09-02-2021 Globulin (S) [Mass/Vol] 3.4 g/dL [facility] Glucose Glucometer (BldC) [M ass/Vol]Ordered By: George Ash on 09-02-2021 Glucose [Mass/Vol] 82 mg/dL [facility] Comment on above: Random Glucose Refer ence Range is dependent on time and content of last meal. Glucose of more than 200 mg/dL in a nonstressed, ambulatory subject supports the diagnosis of Diabetes Mellitus. Hematocrit Auto (Bld) [Volum e fraction]Ordered By: Estela Varma on 09-02-2021 Hematocrit (Bld) [Volume fraction] 42.4 % 38.8-50.0 [facility] Hemoglobin [Mass/volume] in BloodOrdered By: Estela Varma on 09-02-2021 Hemoglobin (Bld) [Mass/Vol] 14.6 g/dL 13.0-17.0 [facility] Laboratory - Hematology and Cell countsOrdered By: Estela Varma on 09-02-2021 Nucleated RBC/100 WBC (Bld) [Ratio] 0.1 % 0-0.5 [facility] Leukocytes [#/volume] in Blo od by Automated countOrdered By: Estela Varma on 09-02-2021 WBC (Bld) [#/Vol] 5.0 10*3/uL 4.5-11.0 [facility] Lymphocytes Auto (Bld) [#/Vo l]Ordered By: Estela Varma on 09-02-2021 Lymphocytes (Bld) [#/Vol] 0.9 10*3/uL 1.00-4.8 [facility] Lymphocytes/100 WBC Auto (Bl d)Ordered By: Estela Varma on 09-02-2021 Lymphocytes/100 WBC (Bld) 18.2 % . [facility] MCH Auto (RBC) [Entitic mass ]Ordered By: Estela Varma on 09-02-2021 MCH (RBC) [Entitic mass] 32.6 pg 27.5-35.2 [facility] MCHC Auto (RBC) [Mass/Vol]Or dered By: Estela Varma on 09-02-2021 MCHC (RBC) [Mass/Vol] 34.4 g/dL 32.5-35.6 [facility] MCV Auto (RBC) [Entitic vol] Ordered By: Estela Varma on 09-02-2021 MCV (RBC) [Entitic vol] 94.8 fL 83.5-101 [facility] Monocytes Auto (Bld) [#/Vol] Ordered By: Estela Varma on 09-02-2021 Monocytes (Bld) [#/Vol] 0.4 10*3/uL 0.0-0.8 [facility] Monocytes/100 WBC Auto (Bld) Ordered By: Estela Varma on 09-02-2021 Monocytes/100 WBC (Bld) 7.9 % . [facility] Neutrophils Auto (Bld) [#/Vo l]Ordered By: Estela Varma on 09-02-2021 Neutrophils (Bld) [#/Vol] 3.5 10*3/uL 1.8-7.7 [facility] Neutrophils/100 WBC Auto (Bl d)Ordered By: Estela Varma on 09-02-2021 Neutrophils/100 WBC (Bld) 69.0 % . [facility] Platelet mean volume Auto (B ld) [Entitic vol]Ordered By: Estela Varma on 09-02-2021 Platelet mean volume (Bld) [Entitic vol] 7.0 fL 6.6-10.1 [facility] Platelets Auto (Bld) [#/Vol] Ordered By: Estela Varma on 09-02-2021 Platelets (Bld) [#/Vol] 186 10*3/uL 150-450 [facility] Protein [Mass/volume] in Ser um or PlasmaOrdered By: Estela Varma on 09-02-2021 Protein [Mass/Vol] 7.2 g/dL 6.1-7.9 [facility] RBC Auto (Bld) [#/Vol]Ordere d By: Estela Varma on 09-02-2021 RBC (Bld) [#/Vol] 4.48 10*6/uL 3.90-5.60 [facility] Serum or plasma alanine glynn otransferase measurement without P-5'-P (enzymatic activiOrdered By: Estela Varma on 09-02-2021 ALT No additional P-5'-P [Catalytic activity/Vol] 13 U/L 10-60 [facility] Serum or plasma albumin/glob ulin mass ratioOrdered By: Estela Varma on 09-02-2021 Albumin/Globulin [Mass ratio] 1.1 {ratio} [facility] Serum or plasma alkaline abhijit sphatase measurement (enzymatic activity/volume)Ordered By: Estela Varma on 09-02-2021 ALP [Catalytic activity/Vol] 130 U/L 32-92 [facility] Serum or plasma aspartate am inotransferase measurement (enzymatic activity/volume)Ordered By: Estela Varma on 09-02-2021 AST [Catalytic activity/Vol] 18 U/L 10-42 [facility] Serum or plasma calcium ledy urement (mass/volume)Ordered By: Estela Varma on 09-02-2021 Calcium [Mass/Vol] 9.0 mg/dL 8.2-10.2 [facility] Serum or plasma carcinoembry onic antigen measurement (mass/volume)Ordered By: Estela Varma on 09-02-2021 Carcinoembryonic Ag [Mass/Vol] 11.4 ng/mL 0.0-3.0 [facility] Serum or plasma chloride carlyn surement (moles/volume)Ordered By: Estela Varma on 09-02-2021 Chloride [Moles/Vol] 100 mmol/L 95-114 [facility] Serum or plasma glucose ledy urement (mass/volume)Ordered By: Estela Varma on 09-02-2021 Glucose [Mass/Vol] 78 mg/dL 70-100 [facility] Comment on above: ADA recommended refe rence rangeRandom Glucose Reference Range is dependent on time and content of last meal. Glucose of more than 200 mg/dL in a nonstressed, ambulatory subject supports the diagnosis of Diabetes Mellitus. Serum or plasma potassium me asurement (moles/volume)Ordered By: Estela Varma on 09-02-2021 Potassium [Moles/Vol] 4.3 mmol/L 3.5-5.1 [facility] Serum or plasma sodium measu rement (moles/volume)Ordered By: Estela Varma on 09-02-2021 Sodium [Moles/Vol] 133 mmol/L 136-146 [facility] Serum or plasma total biliru bin measurement (mass/volume)Ordered By: Estela Varma on 09-02-2021 Bilirubin [Mass/Vol] 0.6 mg/dL 0.3-1.2 [facility] Serum or plasma total carbon dioxide measurement (moles/volume)Ordered By: Estela Varma on 09-02-2021 CO2 [Moles/Vol] 23.9 mmol/L 22.0-30.0 [facility] TSH DL <= 0.005 mIU/L QnOrde red By: George Ash on 01-31-2021 TSH Qn 1.65 m[IU]/L 0.45-5.33 [facility] Lipid Panel Fastingon 2020 Cholesterol [Mass/Vol] 145 mg/dL Normal 0-199 [facility] Comment on above: Result Comment: ATP III Cholesterol classification is Desirable. Performed By: #### L IPDF #### [facility] [address] [facility] [address] HDL Cholesterol Fasting 49 mg/dL Normal 40-59 [facility] Comment on above: Result Comment: ATP [...] CHD Performed By: #### L IPDF #### [facility] [address] [place] [address] LDL Cholesterol (Calculated) Fasting 76 mg/dL Normal 0-129 [facility] Comment on above: Result Comment: ATP III LDL Classification is Optimal. Performed By: #### L IPDF #### [facility] [address] [place] [address] Triglycerides Fasting 98 mg/dL Normal 0-150 [facility] Comment on above: Result Comment: ATP III Triglycerides Classification is Normal. Performed By: #### L IPDF #### [facility] [address] [place] [address] Vitamin B12 and Folateon Cobalamin (Vitamin B12) [Mass/Vol] 417 pg/mL Normal 232-1245 [facility] Comment on above: Performed By: #### B 12FO #### [facility] [address] [place] [address] Folate 13.4 ng/mL Normal 7.3-26.1 [facility] Comment on above: Result Comment: As o f 15, the methodology has changed. Results from this methodology should not be compared with results from previous methodology. Performed By: #### B 12FO #### [facility] [address] [place] [address] Vitamin Don 08-20-2020 Vitamin D 33.1 ng/mL Normal 30.0-100.0 [facility] Comment on above: Result Comment: (30- 100 ng/mL) Optimum Level This assay accurately quantifies the sum of vitamin D3, 25-Hydroxy and vitamin D2, 25-Hyroxy. Performed By: #### V ITD #### [facility] [address] [place] [address] Thyroxine (T4) free [Mass/vo lume] in Serum or Plasmaon 08-16-2020 Free T4 [Mass/Vol] 0.79 ng/dL 0.61-1.12 [facility] Lipid Profileon 08-06-2020 Cholesterol [Mass/Vol] 132 mg/dL Normal <200 [facility] Comment on above: Result Comment: Cholesterol Guidelines: <200 Desirable 200-240 Borderline >240 Undesirable Performed By: #### L IPR #### [facility] [address] [place] [address] [employer] Farmworker: Joe Todd MD Cholesterol in HDL [Mass/Vol] 41 mg/dL Normal >40 [facility] Comment on above: Result Comment: HDL Guidelines: <40 Undesirable 40-59 Borderline >59 Desirable Performed By: #### L IPR #### [facility] [address] [place] [address] [employer]worker: Joe Todd MD Cholesterol in LDL [Mass/Vol] 72 mg/dL Normal 0-130 [facility] Comment on above: Result Comment: LDL Guidelines: <100 Desirable 100-129 Near to/above Desirable 130-159 Borderline >159 Undesirable Direct (measured) LDL and calculated LDL are not interchangeable tests. Performed By: #### L IPR #### [facility] [address] [place] [address] [employer]worker: Joe Todd MD Cholesterol.total/Cho lesterol in HDL [Mass ratio] 3.2 {ratio} Normal <5 [facility] Comment on above: Performed By: #### L IPR #### [facility] [address] [place] [address] [employer]: Joe Todd MD Triglyceride [Mass/Vol] 93 mg/dL Normal <150 [facility] Comment on above: Result Comment: Triglyceride Guidelines: <150 Desirable 150-199 Borderline 200-499 High >499 Very high Based on AHA Guidelines for fasting triglyceride, February 2012. Performed By: #### L IPR #### [facility] [address] [place] [address] [employer]worker: Joe Todd MD Cholesterol in VLDL [Mass/Vol] NOT REPORTED Normal 06-12 [facility] Comment on above: Performed By: #### L IPR #### [facility] [address] [place] [address] [employer]: Joe Todd MD Direct bilirubin measurement on 07-05-2020 Bilirubin.direct [Mass/Vol] 0.1 mg/dL 0.0-0.4 [facility] [facility] Serum or plasma non-glucuron idated bilirubin measurement (mass/volume)on 07-05-2020 Bilirubin.indirect [Mass/Vol] 0.8 mg/dL [facility] Laboratory - Hematology and Cell countson 05-24-2020 WBC (Bld) [#/Vol] 4.9 10*3/uL 4.5-11.0 [facility] Blood anisocytosis detection on 03-08-2020 Anisocytosis Ql (Bld) Slight [facility] No Panel Informationon 03-08 Platelet Estimate Normal Normal [facility] Platelet Morphology Comment Normal Normal [facility] RBC morphologyon 03-08-2020 RBC morphology finding Nom (Bld) N/A [facility] CARDIAC STRESS/REST (DILAN CARDIAL PERFUSION/MIBI)on 03-03-2020 [facility] CARDIAC STRESS/REST (MYOCARDIAL PERFUSION/MIBI) Patient Name: KIRILL ECHOLS STUDY: MYOCARDIAL PERFUSION STRESS TEST WITH LEXISCAN Performing facility: [facility], \[address], [address], \[place] [address] [facility] Provider: Ema Oliveira DO, [facility] PCP: Dr. Danni Andrea Supervising provider: Tejal King MD, [facility] INDICATION: Chest Pain; HISTORY: Gender: M; Age: 54 y/o ; Height: 182.88 cm; Weight: 71.1612352 kg. HTN; Chest Pain; COPD; Quit smoking in 2019 years ago. COMPARISON: No comparison. ACCESSION NUMBER(S): [id number]; [id number]; [id number] ORDERING CLINICIAN: LUKAS OLIVEIRA TECHNIQUE: ONE DAY [...] Electronically signed by: TEJAL KING MD Normal [facility] CARDIAC STRESS/REST INJE CTIONon 03-03-2020 [facility] CARDIAC STRESS/REST INJECTION Patient Name: KIRILL ECHOLS STUDY: MYOCARDIAL PERFUSION STRESS TEST WITH LEXISCAN Performing facility: [facility], [address], [address], \[place] [address] [facility] Provider: Ema Oliveira DO, [facility] PCP: Dr. Danni Andrea Supervising provider: Tejal King MD, [facility] INDICATION: Chest Pain; HISTORY: Gender: M; Age: 54 y/o ; Height: 182.88 cm; Weight: 71.4168620 kg. HTN; Chest Pain; COPD; Quit smoking in 2019 years ago. COMPARISON: No comparison. ACCESSION NUMBER(S): [id number]; [id number]; [id number] ORDERING CLINICIAN: LUKAS OLIVEIRA TECHNIQUE: ONE DAY [...] comparison. Electronically signed by: TEJAL KING MD [facility] PART 2 STRESS OR REST (N O CHARGE)on 03-03-2020 [facility] PART 2 STRESS OR REST (NO CHARGE) Patient Name: KIRILL ECHOLS STUDY: MYOCARDIAL PERFUSION STRESS TEST WITH LEXISCAN Performing facility: [facility], [address], [address], \[place] [id number] [facility] Provider: Ema Oliveira DO, [facility] PCP: Dr. Danni Andrea Supervising provider: Tejal King MD, [facility] INDICATION: Chest Pain; HISTORY: Gender: M; Age: 54 y/o ; Height: 182.88 cm; Weight: 71.5567131 kg. HTN; Chest Pain; COPD; Quit smoking in 2020 years ago. COMPARISON: No comparison. ACCESSION NUMBER(S): [id number]; [id number]; [id number] ORDERING CLINICIAN: LKUAS OLIVEIRA TECHNIQUE: ONE DAY protocol. Stress injection: [...] Electronically signed by: TEJAL KING MD Normal [facility] No Panel Informationon 03-02 Schistocytes Rare [facility] Target cellson 03-02-2020 Target cells LM Ql (Bld) Slight [facility] Basophil percentageon 2019 Eosinophils/100 WBC (Bld) 1 % 1-3 [facility] Blood polychromasia detectio n by light microscopyon 02-24-2020 Polychromasia LM Ql (Bld) Slight [facility] Laboratory - Hematology and Cell countson 02-24-2020 Band form neutrophils/100 WBC (Bld) 13 % 0-5 [facility] Lymphocytes/100 WBC Auto (Bl d)on 02-24-2020 Lymphocytes/100 WBC (Bld) 9 % 18-42 [facility] Monocyte %on 02-24-2020 Monocytes/100 WBC (Bld) 1 % 1-3 [facility] Monocytes/100 WBC Manual cnt (Bld)on 02-24-2020 Monocytes/100 WBC (Bld) 16 % 2-11 [facility] No Panel Informationon 02-23 Dohle Bodies Moderate [facility] Poikilocytosis Slight [facility] Ovalocyte detectionon 2019 Ovalocytes LM Ql (Bld) Slight [facility] Segmented neutrophils/100 WB C Manual cnt (Bld)on 02-24-2020 Segmented neutrophils/100 WBC (Bld) 61 % 50-70 [facility] Hypochromia detectionon 01-13 Hypochromia Ql (Bld) Slight [facility] Macrocytes detectionon 01-19 Macrocytes Ql (Bld) Slight [facility] No Panel Informationon 01-19 Smudge Cells Few [facility] Red blood cell stomatocyte d etectionon 12-09-2019 Stomatocytes LM Ql (Bld) Slight [facility] Respiratory specimen 2019 no mathieu coronavirus RNA detection by probe and target amplifion 11-21-2019 SARS-CoV-2 (COVID-19) RNA DEANA+probe Ql (Resp) Not detected Not Detected [facility] Comment on above: This test was develo ped and its performance characteristicsdetermined by [employer]. This test has not beenFDA cleared or [...] (not detected) result in this assay.Performed at: [facility] [address] [facility], [place] [id number] Director: Antonio Chaney MD, Phone: [phone] Basophils/100 WBC Auto (Bld) on 11-18-2019 Basophils/100 WBC (Bld) 1 % 0-2 [facility] Amylaseon 04-28-2018 Amylase enzyme act/vol 130 U/L High 30-110 [facility] Comment on above: Performed By: #### C BCDIF, PT, GBCHEM, GBTSH, LIPA, MG, GBHCV, HAVIGM, HBCAB, HBSAG, RPR ####[facility] [id number] [place], [place] [phone] GGTon 04-28-2018 Gamma glutamyl transferase [Enzymatic activity/volume] in Serum or Plasma 426 U/L High 15-73 [facility] Comment on above: Performed By: #### C BCDIF, PT, GBCHEM, GBTSH, LIPA, MG, GBHCV, HAVIGM, HBCAB, HBSAG, RPR ####[facility] Xbq40139 [place], [place] [phone] Hepatic Function Pnlon 04-28 Albumin mass conc 4.2 g/dL Normal 3.5-5.0 [facility] Comment on above: Performed By: #### C BCDIF, PT, GBCHEM, GBTSH, LIPA, MG, GBHCV, HAVIGM, HBCAB, HBSAG, RPR ####[facility] Clinical [id number] [place], [place] [phone] Alkaline Phos 96 U/L Normal 38-125 [facility] Comment on above: Performed By: #### C BCDIF, PT, GBCHEM, GBTSH, LIPA, MG, GBHCV, HAVIGM, HBCAB, HBSAG, RPR ####[facility] Ygq56822 [place], [place] [phone] ALT enzyme act/vol 60 U/L Normal 21-72 [facility] Comment on above: Performed By: #### C BCDIF, PT, GBCHEM, GBTSH, LIPA, MG, GBHCV, HAVIGM, HBCAB, HBSAG, RPR ####[facility] [id number] [facility], [place] [phone] AST enzyme act/vol 65 U/L High 17-59 [facility] Comment on above: Performed By: #### C BCDIF, PT, GBCHEM, GBTSH, LIPA, MG, GBHCV, HAVIGM, HBCAB, HBSAG, RPR ####[facility] Clinical [id number] [place], [place] [phone] Bilirubin Ql (U) 0.3 mg/dL Normal 0.2-1.3 [facility] Comment on above: Performed By: #### C BCDIF, PT, GBCHEM, GBTSH, LIPA, MG, GBHCV, HAVIGM, HBCAB, HBSAG, RPR ####[facility] Clinical [id number] [facility] [place] [facility], [place] [phone] Bilirubin.direct mass conc 0.2 mg/dL Normal 0.0-0.4 [facility] Comment on above: Performed By: #### C BCDIF, PT, GBCHEM, GBTSH, LIPA, MG, GBHCV, HAVIGM, HBCAB, HBSAG, RPR ####[facility] Clinical [id number] [place], [place] [phone] Protein mass conc 7.3 g/dL Normal 6.2-8.2 [facility] Comment on above: Performed By: #### C BCDIF, PT, GBCHEM, GBTSH, LIPA, MG, GBHCV, HAVIGM, HBCAB, HBSAG, RPR ####[facility] Clinical [id number] [place], [place] [phone] Lipaseon 04-28-2018 Lipase enzyme act/vol 941 U/L High 23-300 [facility] Comment on above: Performed By: #### C BCDIF, PT, GBCHEM, GBTSH, LIPA, MG, GBHCV, HAVIGM, HBCAB, HBSAG, RPR ####[facility] Clinical [id number] [place], [place] [phone] Phenobarbitalon 04-26-2018 Phenobarbital mass conc ug/mL Low 15.0-40.0 [facility] Comment on above: Performed By: #### C BCDIF, PT, GBCHEM, GBTSH, LIPA, MG, GBHCV, HAVIGM, HBCAB, HBSAG, RPR ####[facility] Xul21038 [place] [facility], [place] [phone] RPRon 04-25-2018 Reagin Ab RPR Ql (S) Nonreactive Normal Nonreactive [facility] Comment on above: Performed By: #### C BCDIF, PT, GBCHEM, GBTSH, LIPA, MG, GBHCV, HAVIGM, HBCAB, HBSAG, RPR ####[facility] [id number] [facility]ics[facility], [place] [phone] Urinalysison 04-25-2018 Bilirubin Negative Normal Negative [facility] Comment on above: Performed By: #### C BCDIF, PT, GBCHEM, GBTSH, LIPA, MG, GBHCV, HAVIGM, HBCAB, HBSAG, RPR ####[facility] Clinical [id number] [facility], [place] [phone] Cast SEE NOTES Normal 0 [facility] Comment on above: Result Comment: >20H yaline Cast Performed By: #### C BCDIF, PT, GBCHEM, GBTSH, LIPA, MG, GBHCV, HAVIGM, HBCAB, HBSAG, RPR ####[facility] Clinical [id number] [facility], [place] [phone] Clarity Nom (U) Cloudy Critically abnormal Clear [facility] Comment on above: Performed By: #### C BCDIF, PT, GBCHEM, GBTSH, LIPA, MG, GBHCV, HAVIGM, HBCAB, HBSAG, RPR ####[facility] Clinical [id number] [facility], [place] [phone] Color Nom (U) Taylor Critically abnormal Yellow [facility] Comment on above: Performed By: #### C BCDIF, PT, GBCHEM, GBTSH, LIPA, MG, GBHCV, HAVIGM, HBCAB, HBSAG, RPR ####[facility] Clinical [id number] [facility] [place] [facility], [place] [phone] Crystals SEE NOTES Normal 0 [facility] Comment on above: Result Comment: FewA morphous Performed By: #### C BCDIF, PT, GBCHEM, GBTSH, LIPA, MG, GBHCV, HAVIGM, HBCAB, HBSAG, RPR ####[facility] Blc87783 [facility], [place] [phone] Epithelial Cells Few Normal [facility] Comment on above: Result Comment: Squa mous Epithelial Cells Performed By: #### C BCDIF, PT, GBCHEM, GBTSH, LIPA, MG, GBHCV, HAVIGM, HBCAB, HBSAG, RPR ####[facility] Clinical [id number] [facility], [place] [phone] Glucose Negative Normal Negative [facility] Comment on above: Performed By: #### C BCDIF, PT, GBCHEM, GBTSH, LIPA, MG, GBHCV, HAVIGM, HBCAB, HBSAG, RPR ####[facility] Clinical Pzm83269 [facility], [place] [phone] Hemoglobin/Blood Negative Normal Negative [facility] Comment on above: Performed By: #### C BCDIF, PT, GBCHEM, GBTSH, LIPA, MG, GBHCV, HAVIGM, HBCAB, HBSAG, RPR ####[facility] Clinical Ijr93379 [facility], [place] [phone] INR Coag RelTime (Bld) 0-3 Normal 0-3 [facility] Comment on above: Performed By: #### C BCDIF, PT, GBCHEM, GBTSH, LIPA, MG, GBHCV, HAVIGM, HBCAB, HBSAG, RPR ####[facility] Clinical Nyf91511 [facility], [place] [phone] Ketone Trace Critically abnormal Negative [facility] Comment on above: Performed By: #### C BCDIF, PT, GBCHEM, GBTSH, LIPA, MG, GBHCV, HAVIGM, HBCAB, HBSAG, RPR ####[facility] Clinical Sei19153 [facility], [place] [phone] Leukest Negative Normal Negative [facility] Comment on above: Performed By: #### C BCDIF, PT, GBCHEM, GBTSH, LIPA, MG, GBHCV, HAVIGM, HBCAB, HBSAG, RPR ####[facility] Clinical Lav95970 [facility] [place] [facility], [place] [phone] Nitrites Negative Normal Negative [facility] Comment on above: Performed By: #### C BCDIF, PT, GBCHEM, GBTSH, LIPA, MG, GBHCV, HAVIGM, HBCAB, HBSAG, RPR ####[facility] Clinical Iyh37176 [facility], [place] [phone] pH Test strip (U) 5.0 [pH] Normal 5-7 [facility] Comment on above: Performed By: #### C BCDIF, PT, GBCHEM, GBTSH, LIPA, MG, GBHCV, HAVIGM, HBCAB, HBSAG, RPR ####[facility] Tis60490 [facility], [place] [phone] Protein mass conc 100 mg/dl Critically abnormal Negative [facility] Comment on above: Performed By: #### C BCDIF, PT, GBCHEM, GBTSH, LIPA, MG, GBHCV, HAVIGM, HBCAB, HBSAG, RPR ####[facility] Clinical Ohk84098 [facility], [place] [phone] Urine Alpesh Comment Many Normal [facility] Comment on above: Result Comment: MUCO US Performed By: #### C BCDIF, PT, GBCHEM, GBTSH, LIPA, MG, GBHCV, HAVIGM, HBCAB, HBSAG, RPR ####[facility] Clinical Wrk36472 [facility], [place] [phone] Urine Spec [place] 1.025 Normal 1.005-1.030 [facility] Comment on above: Performed By: #### C BCDIF, PT, GBCHEM, GBTSH, LIPA, MG, GBHCV, HAVIGM, HBCAB, HBSAG, RPR ####[facility] Clinical Tbx22837 [place], [place] [phone] Urobilinogen 2.0 mg/dl High 0.0-1.0 [facility] Comment on above: Performed By: #### C BCDIF, PT, GBCHEM, GBTSH, LIPA, MG, GBHCV, HAVIGM, HBCAB, HBSAG, RPR ####[facility] Clinical Odj42537 [facility] ClinicsRichieSW[place]Z [place], [place] [phone] WBC 0-5 Normal 0-5 [facility] Comment on above: Performed By: #### C BCDIF, PT, GBCHEM, GBTSH, LIPA, MG, GBHCV, HAVIGM, HBCAB, HBSAG, RPR ####[facility] Zno41435 [facility]icsEdwinasouth [facility] [place], [place] [phone] CBCDIFon 04-24-2018 Abs Baso 0.02 k/uL Normal 0-0.2 [facility] Comment on above: Performed By: #### C BCDIF, PT, GBCHEM, GBTSH, LIPA, MG, GBHCV, HAVIGM, HBCAB, HBSAG, RPR ####[facility] Teg77264 [facility] ClinicsEdwinaMountain [place], [place] [phone] Abs [place] 1.23 k/uL High 0-0.8 [facility] Comment on above: Performed By: #### C BCDIF, PT, GBCHEM, GBTSH, LIPA, MG, GBHCV, HAVIGM, HBCAB, HBSAG, RPR ####[facility] Rdi84927 [place], [place] [phone] Abs Neut 7.41 k/uL Normal 1.8-7.7 [facility] Comment on above: Performed By: #### C BCDIF, PT, GBCHEM, GBTSH, LIPA, MG, GBHCV, HAVIGM, HBCAB, HBSAG, RPR ####[facility] Clinical Rsu54340 [facility] ClinicsEdwinaMountain [place], [place] [phone] Basophils/100 WBC Auto (Bld) 0.2 % Normal 0-1 [facility] Comment on above: Performed By: #### C BCDIF, PT, GBCHEM, GBTSH, LIPA, MG, GBHCV, HAVIGM, HBCAB, HBSAG, RPR ####[facility] Clinical Zyj86269 [place], [place] [phone] Eosinophils Auto #/vol (Bld) 0.38 10*3/uL Normal 0-0.4 [facility] Comment on above: Performed By: #### C BCDIF, PT, GBCHEM, GBTSH, LIPA, MG, GBHCV, HAVIGM, HBCAB, HBSAG, RPR ####[facility] Clinical [id number] [place], [place] [phone] Eosinophils/100 WBC Auto (Bld) 3.3 % Normal 0-4 [facility] Comment on above: Performed By: #### C BCDIF, PT, GBCHEM, GBTSH, LIPA, MG, GBHCV, HAVIGM, HBCAB, HBSAG, RPR ####[facility] Qci07849 [place], [place] [phone] Erythrocyte distribution width Auto Ratio (RBC) 14.6 % High 11.5-14.5 [facility] Comment on above: Performed By: #### C BCDIF, PT, GBCHEM, GBTSH, LIPA, MG, GBHCV, HAVIGM, HBCAB, HBSAG, RPR ####[facility] Izo30167 [place], [place] [phone] Hematocrit Auto Volume Fraction (Bld) 46.2 % Normal 41.0-53.0 [facility] Comment on above: Performed By: #### C BCDIF, PT, GBCHEM, GBTSH, LIPA, MG, GBHCV, HAVIGM, HBCAB, HBSAG, RPR ####[facility] Axl33118 [place], [place] [phone] Hemoglobin mass conc (Bld) 16.2 g/dL Normal 13.5-17.5 [facility] Comment on above: Performed By: #### C BCDIF, PT, GBCHEM, GBTSH, LIPA, MG, GBHCV, HAVIGM, HBCAB, HBSAG, RPR ####[facility] Clinical [id number] [place], [place] [phone] Immature Gran 0.30 % Normal 0-1.9 [facility] Comment on above: Performed By: #### C BCDIF, PT, GBCHEM, GBTSH, LIPA, MG, GBHCV, HAVIGM, HBCAB, HBSAG, RPR ####[facility] Rbd26378 [place], [place] [phone] Lymphocytes Auto #/vol (Bld) 2.56 10*3/uL Normal 1.0-4.0 [facility] Comment on above: Performed By: #### C BCDIF, PT, GBCHEM, GBTSH, LIPA, MG, GBHCV, HAVIGM, HBCAB, HBSAG, RPR ####[facility] Pti37908 [place], [place] [phone] Lymphocytes/100 WBC Auto (Bld) 22.0 % Normal 22-44 [facility] Comment on above: Performed By: #### C BCDIF, PT, GBCHEM, GBTSH, LIPA, MG, GBHCV, HAVIGM, HBCAB, HBSAG, RPR ####[facility] Bfi47578 [place], [place] [phone] MCH Auto Entitic mass (RBC) 31.6 pG Normal 26-34 [facility] Comment on above: Performed By: #### C BCDIF, PT, GBCHEM, GBTSH, LIPA, MG, GBHCV, HAVIGM, HBCAB, HBSAG, RPR ####[facility] Clinical Nre80503 [place], [place] [phone] MCHC Auto mass conc (RBC) 35.1 g/dL Normal 31-37 [facility] Comment on above: Performed By: #### C BCDIF, PT, GBCHEM, GBTSH, LIPA, MG, GBHCV, HAVIGM, HBCAB, HBSAG, RPR ####[facility] Clinical [id number] [place], [place] [phone] MCV Auto Entitic volume (RBC) 90.1 fL Normal 80-100 [facility] Comment on above: Performed By: #### C BCDIF, PT, GBCHEM, GBTSH, LIPA, MG, GBHCV, HAVIGM, HBCAB, HBSAG, RPR ####[facility] Clinical Ehv51716 [facility], [place] [phone] Monocytes/100 WBC Auto (Bld) 10.6 % Normal 4-12 [facility] Comment on above: Performed By: #### C BCDIF, PT, GBCHEM, GBTSH, LIPA, MG, GBHCV, HAVIGM, HBCAB, HBSAG, RPR ####[facility] Clinical Roq67366 [place], [place] [phone] Neutrophils/100 WBC Auto (Bld) 63.6 % Normal 40-70 [facility] Comment on above: Performed By: #### C BCDIF, PT, GBCHEM, GBTSH, LIPA, MG, GBHCV, HAVIGM, HBCAB, HBSAG, RPR ####[facility] Clinical Zav66595 [facility], [place] [phone] NRBCs 0 /100 WBC Normal 0-0.9 [facility] Comment on above: Performed By: #### C BCDIF, PT, GBCHEM, GBTSH, LIPA, MG, GBHCV, HAVIGM, HBCAB, HBSAG, RPR ####[facility] Clinical Ghf30163 [place], [place] [phone] Platelets Auto #/vol (Bld) 188 10*3/uL Normal 150-450 [facility] Comment on above: Performed By: #### C BCDIF, PT, GBCHEM, GBTSH, LIPA, MG, GBHCV, HAVIGM, HBCAB, HBSAG, RPR ####[facility] Clinical Ila89708 [facility], [place] [phone] RBC Auto #/vol (Bld) 5.13 10*6/uL Normal 4.50-5.90 [facility] Comment on above: Performed By: #### C BCDIF, PT, GBCHEM, GBTSH, LIPA, MG, GBHCV, HAVIGM, HBCAB, HBSAG, RPR ####[facility] Clinical Oyg70608 [facility] ClinicsEdwin[place], [place] [phone] WBC Auto #/vol (Bld) 11.63 10*3/uL High 4.5-11.0 [facility] Comment on above: Performed By: #### C BCDIF, PT, GBCHEM, GBTSH, LIPA, MG, GBHCV, HAVIGM, HBCAB, HBSAG, RPR ####[facility] Clinical Myp79464 [facility] [place] [facility], [place] [phone] [facility] 2017 Albumin mass conc 5.0 g/dL Normal 3.5-5.0 [facility] Comment on above: Performed By: #### C BCDIF, PT, GBCHEM, GBTSH, LIPA, MG, GBHCV, HAVIGM, HBCAB, HBSAG, RPR ####[facility] Clinical Jru93772 [facility] [place] [facility], [place] [phone] Alkaline Phos 137 U/L High 38-125 [facility] Comment on above: Performed By: #### C BCDIF, PT, GBCHEM, GBTSH, LIPA, MG, GBHCV, HAVIGM, HBCAB, HBSAG, RPR ####[facility] Clinical Apj85035 [facility] [place] [phone] ALT enzyme act/vol 54 U/L Normal 21-72 [facility] Comment on above: Performed By: #### C BCDIF, PT, GBCHEM, GBTSH, LIPA, MG, GBHCV, HAVIGM, HBCAB, HBSAG, RPR ####[facility] Clinical Kch19737 [facility] ClinicsEdwin[place], [place] [phone] Amylase enzyme act/vol 156 U/L High 30-110 [facility] Comment on above: Performed By: #### C BCDIF, PT, GBCHEM, GBTSH, LIPA, MG, GBHCV, HAVIGM, HBCAB, HBSAG, RPR ####[facility] Clinical Mcd00124 [facility], [place] [phone] Anion gap 3 molar conc 18 mmol/L High 0-15 [facility] Comment on above: Performed By: #### C BCDIF, PT, GBCHEM, GBTSH, LIPA, MG, GBHCV, HAVIGM, HBCAB, HBSAG, RPR ####[facility] Ujt71859 [facility], [place] [phone] AST enzyme act/vol 102 U/L High 17-59 [facility] Comment on above: Performed By: #### C BCDIF, PT, GBCHEM, GBTSH, LIPA, MG, GBHCV, HAVIGM, HBCAB, HBSAG, RPR ####[facility] Clinical Xgm33200 [facility], [place] [phone] Bilirubin Ql (U) 1.5 mg/dL High 0.2-1.3 [facility] Comment on above: Performed By: #### C BCDIF, PT, GBCHEM, GBTSH, LIPA, MG, GBHCV, HAVIGM, HBCAB, HBSAG, RPR ####[facility] Clinical Uld45903 [facility], [place] [phone] Calcium mass conc 10.0 mg/dL Normal 8.4-10.2 [facility] Comment on above: Performed By: #### C BCDIF, PT, GBCHEM, GBTSH, LIPA, MG, GBHCV, HAVIGM, HBCAB, HBSAG, RPR ####[facility] Clinical Jle13988 [place], [place] [phone] Chloride molar conc 91 mmol/L Low 98-107 [facility] Comment on above: Performed By: #### C BCDIF, PT, GBCHEM, GBTSH, LIPA, MG, GBHCV, HAVIGM, HBCAB, HBSAG, RPR ####[facility] Clinical Ubv10977 [facility], [place] [phone] Cholesterol mass conc 155 mg/dL Normal 100-199 [facility] Comment on above: Performed By: #### C BCDIF, PT, GBCHEM, GBTSH, LIPA, MG, GBHCV, HAVIGM, HBCAB, HBSAG, RPR ####[facility] Clinical Fup74519 [place], [place] [phone] CO2 molar conc 27 mmol/L Normal 22-30 [facility] Comment on above: Performed By: #### C BCDIF, PT, GBCHEM, GBTSH, LIPA, MG, GBHCV, HAVIGM, HBCAB, HBSAG, RPR ####[facility] Clinical Onf47267 [place], [place] [phone] Creatinine mass conc 1.47 mg/dL High 0.66-1.[address] [facility] Comment on above: Performed By: #### C BCDIF, PT, GBCHEM, GBTSH, LIPA, MG, GBHCV, HAVIGM, HBCAB, HBSAG, RPR ####[facility] Clinical [id number] [place], [place] [phone] eGFR Amer >60 Normal >60 [facility] Comment on above: Result Comment: MDRD calculation used for eGFR results. Performed By: #### C BCDIF, PT, GBCHEM, GBTSH, LIPA, MG, GBHCV, HAVIGM, HBCAB, HBSAG, RPR ####[facility] Clinical [id number] [place], [place] [phone] eGFR non Am 53 mL/min/1.73 2 Low >60 [facility] Comment on above: Performed By: #### C BCDIF, PT, GBCHEM, GBTSH, LIPA, MG, GBHCV, HAVIGM, HBCAB, HBSAG, RPR ####[facility] Clinical [id number] [place], [place] [phone] Gamma glutamyl transferase [Enzymatic activity/volume] in Serum or Plasma 602 U/L High 15-73 [facility] Comment on above: Performed By: #### C BCDIF, PT, GBCHEM, GBTSH, LIPA, MG, GBHCV, HAVIGM, HBCAB, HBSAG, RPR ####[facility] Clinical [id number] [place], [place] [phone] Glucose mass conc 98 mg/dL Normal 74-106 [facility] Comment on above: Performed By: #### C BCDIF, PT, GBCHEM, GBTSH, LIPA, MG, GBHCV, HAVIGM, HBCAB, HBSAG, RPR ####[facility] Clinical [id number] [place], [place] [phone] LDH 550 U/L Normal 318-618 [facility] Comment on above: Performed By: #### C BCDIF, PT, GBCHEM, GBTSH, LIPA, MG, GBHCV, HAVIGM, HBCAB, HBSAG, RPR ####[facility] Clinical [id number] [place], [place] [phone] Phosphate mass conc 3.9 mg/dL Normal 2.5-4.5 [facility] Comment on above: Performed By: #### C BCDIF, PT, GBCHEM, GBTSH, LIPA, MG, GBHCV, HAVIGM, HBCAB, HBSAG, RPR ####[facility] Clinical [id number] [place], [place] [phone] Potassium molar conc 3.7 mmol/L Normal 3.5-5.[address] [facility] Comment on above: Performed By: #### C BCDIF, PT, GBCHEM, GBTSH, LIPA, MG, GBHCV, HAVIGM, HBCAB, HBSAG, RPR ####[facility] Clinical [id number] [facility], [place] [phone] Protein mass conc 8.7 g/dL High 6.2-8.2 [facility] Comment on above: Performed By: #### C BCDIF, PT, GBCHEM, GBTSH, LIPA, MG, GBHCV, HAVIGM, HBCAB, HBSAG, RPR ####[facility] Clinical [id number] [place], [place] [phone] Sodium molar conc 132 mmol/L Low 137-145 [facility] Comment on above: Performed By: #### C BCDIF, PT, GBCHEM, GBTSH, LIPA, MG, GBHCV, HAVIGM, HBCAB, HBSAG, RPR ####[facility] Clinical [id number] [place], [place] [phone] Triglyceride mass conc 160 mg/dL High 35-150 [facility] Comment on above: Performed By: #### C BCDIF, PT, GBCHEM, GBTSH, LIPA, MG, GBHCV, HAVIGM, HBCAB, HBSAG, RPR ####[facility] Clinical [id number] [place], [place] [phone] Urate mass conc 7.2 mg/dL Normal 3.5-8.5 [facility] Comment on above: Performed By: #### C BCDIF, PT, GBCHEM, GBTSH, LIPA, MG, GBHCV, HAVIGM, HBCAB, HBSAG, RPR ####[facility] Clinical [id number] [place], [place] [phone] Urea nitrogen mass conc 15 mg/dL Normal 9-20 [facility] Comment on above: Performed By: #### C BCDIF, PT, GBCHEM, GBTSH, LIPA, MG, GBHCV, HAVIGM, HBCAB, HBSAG, RPR ####[facility] Clinical [id number] [place], [place] [phone] [facility] Hep C Abon 018 [facility] Hep C Ab Nonreactive Normal Nonreactive [facility] Comment on above: Performed By: #### C BCDIF, PT, GBCHEM, GBTSH, LIPA, MG, GBHCV, HAVIGM, HBCAB, HBSAG, RPR ####[facility] Clinical [id number] [facility] [place] [phone] [facility] TSHon 04-24-2018 Thyrotropin Qn 3.280 uU/mL Normal 0.465-4.680 [facility] Comment on above: Performed By: #### C BCDIF, PT, GBCHEM, GBTSH, LIPA, MG, GBHCV, HAVIGM, HBCAB, HBSAG, RPR ####[facility] [id number] [facility] [place] [phone] Hep A IgM Antibodyon 018 Hep A IgM Antibody Nonreactive Normal Nonreactive [facility] Comment on above: Performed By: #### C BCDIF, PT, GBCHEM, GBTSH, LIPA, MG, GBHCV, HAVIGM, HBCAB, HBSAG, RPR ####[facility] Clinical [id number] [facility], [place] [phone] Hep B Core Total Abon 2017 Hep B Core Total Ab Nonreactive Normal Nonreactive [facility] Comment on above: Performed By: #### C BCDIF, PT, GBCHEM, GBTSH, LIPA, MG, GBHCV, HAVIGM, HBCAB, HBSAG, RPR ####[facility] [id number] [facility] [place] [phone] Hep B Surf Antigenon 018 Hep B Surf Antigen Nonreactive Normal Nonreactive [facility] Comment on above: Performed By: #### C BCDIF, PT, GBCHEM, GBTSH, LIPA, MG, GBHCV, HAVIGM, HBCAB, HBSAG, RPR ####[facility] [id number] [place], [place] [phone] Lipaseon 04-24-2018 Lipase enzyme act/vol 1540 U/L High 23-300 [facility] Comment on above: Performed By: #### C BCDIF, PT, GBCHEM, GBTSH, LIPA, MG, GBHCV, HAVIGM, HBCAB, HBSAG, RPR ####[facility] [id number] [facility] [phone] Magnesiumon 04-24-2018 Magnesium mass conc 2.0 mg/dL Normal 1.3-2.3 [facility] Comment on above: Performed By: #### C BCDIF, PT, GBCHEM, GBTSH, LIPA, MG, GBHCV, HAVIGM, HBCAB, HBSAG, RPR ####[facility] Clinical [id number] [facility] [place] [phone] Protimeon 04-24-2018 INR Coag RelTime (Bld) 1.0 {INR} Normal 0.6-1.1 [facility] Comment on above: Result Comment: The PT/INR [...] GBHCV, HAVIGM, HBCAB, HBSAG, RPR ####[facility] Clinical [id number] [place], [place] [phone] PT Sec 12.3 sec Normal 11.8-14.1 [facility] Comment on above: Performed By: #### C BCDIF, PT, GBCHEM, GBTSH, LIPA, MG, GBHCV, HAVIGM, HBCAB, HBSAG, RPR ####[facility] Clinical [id number] [place], [place] [phone] Vital Signs Date Time Vital Sign Value Performing Clinician Facility 02-03-2025 10:41-0400 Body height 182.9 cm Nilsa Solomon CHARGE ATTENDANT Work Phone: [facility] 02-03-2025 10:41-0400 Body mass index (BMI) [Ratio] 20.21 kg/m2 Nilsa Solomon NP Work Phone: [facility] 02-03-2025 10:41-0400 Body temperature 98.4 [degF] Nilsa Lause CHARGE ATTENDANT Work Phone: [facility] 02-03-2025 10:41-0400 Body weight 67.59 kg Nilsa Lause CHARGE ATTENDANT Work Phone: [facility] 02-03-2025 10:41-0400 Diastolic blood pressure 60 mm[Hg] Nilsa Lause CHARGE ATTENDANT Work Phone: [facility] 02-03-2025 10:41-0400 Heart rate 109 /min Nilsa Lause CHARGE ATTENDANT Work Phone: [facility] 02-03-2025 10:41-0400 Respiratory rate 16 /min Nilsa Lause CHARGE ATTENDANT Work Phone: [facility] 02-03-2025 10:41-0400 SaO2% (BldA) [Mass fraction] 99 % Nilsa Lause CHARGE ATTENDANT Work Phone: [facility] 02-03-2025 10:41-0400 Systolic blood pressure 128 mm[Hg] Nilsa Lause CHARGE ATTENDANT Work Phone: [facility] 01-13-2025 13:01-0400 Body height 182.9 cm Nilsa Lause CHARGE ATTENDANT Work Phone: [facility] 01-13-2025 13:01-0400 Body mass index (BMI) [Ratio] 20.21 kg/m2 Nilsa Lause CHARGE ATTENDANT Work Phone: [facility] 01-13-2025 13:01-0400 Body temperature 97.2 [degF] Nilsa Lause CHARGE ATTENDANT Work Phone: [facility] 01-13-2025 13:01-0400 Body weight 67.59 kg Nilsa Lause CHARGE ATTENDANT Work Phone: [facility] 01-13-2025 13:01-0400 Diastolic blood pressure 72 mm[Hg] Nilsa Lause CHARGE ATTENDANT Work Phone: [facility] 01-13-2025 13:01-0400 Heart rate 99 /min Nilsa Lause CHARGE ATTENDANT Work Phone: [facility] 01-13-2025 13:01-0400 Respiratory rate 16 /min Nilsa Lause CHARGE ATTENDANT Work Phone: [facility] 01-13-2025 13:01-0400 SaO2% (BldA) [Mass fraction] 95 % Nilsa Lause CHARGE ATTENDANT Work Phone: [facility] 01-13-2025 13:01-0400 Systolic blood pressure 128 mm[Hg] Nilsa Lause CHARGE ATTENDANT Work Phone: [facility] 09-15-2024 14:02-0400 Body height 182.9 cm Nilsa Lause CHARGE ATTENDANT Work Phone: [facility] 09-15-2024 14:02-0400 Body mass index (BMI) [Ratio] 21.24 kg/m2 Nilsa Lause CHARGE ATTENDANT Work Phone: [facility] 09-15-2024 14:02-0400 Body temperature 98.6 [degF] Nilsa Lause CHARGE ATTENDANT Work Phone: [facility] 09-15-2024 14:02-0400 Body weight 71.03 kg Nilsa Lause CHARGE ATTENDANT Work Phone: [facility] 09-15-2024 14:02-0400 Diastolic blood pressure 70 mm[Hg] Nilsa Lause CHARGE ATTENDANT Work Phone: [facility] 09-15-2024 14:02-0400 Heart rate 102 /min Nilsa Lause CHARGE ATTENDANT Work Phone: [facility] 09-15-2024 14:02-0400 Respiratory rate 20 /min Nilsa Lause CHARGE ATTENDANT Work Phone: [facility] 09-15-2024 14:02-0400 SaO2% (BldA) [Mass fraction] 97 % Nilsa Lause CHARGE ATTENDANT Work Phone: [facility] 09-15-2024 14:02-0400 Systolic blood pressure 122 mm[Hg] Nilsa Lause CHARGE ATTENDANT Work Phone: [facility] 07-14-2024 13:34-0500 Body height 182.88 cm [facility] 07-14-2024 13:34-0500 Body mass index (BMI) [Ratio] 20.5 kg/m2 [facility] 07-14-2024 13:34-0500 Body temperature 97.9 [degF] [facility] 07-14-2024 13:34-0500 Body weight 68.49 kg [facility] 07-14-2024 13:34-0500 Diastolic blood pressure 87 mm[Hg] [facility] 07-14-2024 13:34-0500 Heart rate 93 /min [facility] 07-14-2024 13:34-0500 Respiratory rate 16 /min [facility] 07-14-2024 13:34-0500 SaO2% (BldA) [Mass fraction] 99 % [facility] 07-14-2024 13:34-0500 Systolic blood pressure 148 mm[Hg] [facility] 06-17-2024 14:49-0500 Body height 182.9 cm Marilu Warchol CHARGE ATTENDANT Work Phone: [facility] 06-17-2024 14:49-0500 Body mass index (BMI) [Ratio] 20.7 kg/m2 Marilu Warchol CHARGE ATTENDANT Work Phone: [facility] 06-17-2024 14:49-0500 Body temperature 98.01 [degF] Marilu Warchol CHARGE ATTENDANT Work Phone: [facility] 06-17-2024 14:49-0500 Body weight 69.22 kg Marilu Warchol CHARGE ATTENDANT Work Phone: [facility] 06-17-2024 14:49-0500 Diastolic blood pressure 72 mm[Hg] Marilu Warchol CHARGE ATTENDANT Work Phone: [facility] 06-17-2024 14:49-0500 Heart rate 92 /min Marilu Warchol CHARGE ATTENDANT Work Phone: [facility] 06-17-2024 14:49-0500 SaO2% (BldA) [Mass fraction] 95 % Marilu Warchol CHARGE ATTENDANT Work Phone: [facility] 06-17-2024 14:49-0500 Systolic blood pressure 118 mm[Hg] Marilu Warchol CHARGE ATTENDANT Work Phone: [facility] 03-17-2024 13:54-0500 Body height 182.9 cm Marilu Warchol CHARGE ATTENDANT Work Phone: [facility] 03-17-2024 13:54-0500 Body mass index (BMI) [Ratio] 19.94 kg/m2 Marilu Warchol CHARGE ATTENDANT Work Phone: [facility] 03-17-2024 13:54-0500 Body temperature 98.01 [degF] Marilu Warchol CHARGE ATTENDANT Work Phone: [facility] 03-17-2024 13:54-0500 Body weight 66.68 kg Marilu Warchol CHARGE ATTENDANT Work Phone: [facility] 03-17-2024 13:54-0500 Diastolic blood pressure 88 mm[Hg] Marilu Warchol CHARGE ATTENDANT Work Phone: [facility] 03-17-2024 13:54-0500 Heart rate 60 /min Marilu Warchol CHARGE ATTENDANT Work Phone: [facility] 03-17-2024 13:54-0500 SaO2% (BldA) [Mass fraction] 99 % Marilu Warchol CHARGE ATTENDANT Work Phone: [facility] 03-17-2024 13:54-0500 Systolic blood pressure 118 mm[Hg] Marilu Warchol CHARGE ATTENDANT Work Phone: [facility] 02-18-2024 14:28-0400 Diastolic blood pressure 84 mm[Hg] MD Rylan Andrea Work Phone: [facility] 02-18-2024 14:28-0400 Heart rate 86 /min MD Rylan Andrea Work Phone: [facility] 02-18-2024 14:28-0400 Respiratory rate 16 /min MD Rylan Andrea Work Phone: [facility] 02-18-2024 14:28-0400 SaO2% (BldA) [Mass fraction] 100 % MD Rylan Andrea Work Phone: [facility] 02-18-2024 14:28-0400 Systolic blood pressure 124 mm[Hg] MD Rylan Andrea Work Phone: [facility] 02-18-2024 11:17-0400 Body height 182.88 cm MD Rylan Andrea Work Phone: [facility] 02-18-2024 11:17-0400 Body weight 62.59 kg MD Rylan Andrea Work Phone: [facility] 02-04-2024 13:42-0400 Body height 182.9 cm Marilu Warchol CHARGE ATTENDANT Work Phone: [facility] 02-04-2024 13:42-0400 Body mass index (BMI) [Ratio] 19.23 kg/m2 Marilu Warchol CHARGE ATTENDANT Work Phone: [facility] 02-04-2024 13:42-0400 Body temperature 97.59 [degF] Marilu Warchol CHARGE ATTENDANT Work Phone: [facility] 02-04-2024 13:42-0400 Body weight 64.32 kg Marilu Warchol CHARGE ATTENDANT Work Phone: [facility] 02-04-2024 13:42-0400 Diastolic blood pressure 72 mm[Hg] Marilu Warchol CHARGE ATTENDANT Work Phone: [facility] 02-04-2024 13:42-0400 Heart rate 100 /min Marilu Warchol CHARGE ATTENDANT Work Phone: [facility] 02-04-2024 13:42-0400 SaO2% (BldA) [Mass fraction] 97 % Marilu Warchol CHARGE ATTENDANT Work Phone: [facility] 02-04-2024 13:42-0400 Systolic blood pressure 130 mm[Hg] Marilu Warchol CHARGE ATTENDANT Work Phone: [facility] 01-31-2024 13:36-0400 Body height 182.88 cm [facility] 01-31-2024 13:36-0400 Body mass index (BMI) [Ratio] 18.5 kg/m2 [facility] 01-31-2024 13:36-0400 Body weight 61.94 kg [facility] 01-31-2024 13:36-0400 Diastolic blood pressure 76 mm[Hg] [facility] 01-31-2024 13:36-0400 Heart rate 97 /min [facility] 01-31-2024 13:36-0400 Systolic blood pressure 115 mm[Hg] [facility] 01-21-2024 13:53-0400 Body height 182.9 cm Marilu Warchol CHARGE ATTENDANT Work Phone: [facility] 01-21-2024 13:53-0400 Body mass index (BMI) [Ratio] 18.85 kg/m2 Marilu Warchol CHARGE ATTENDANT Work Phone: [facility] 01-21-2024 13:53-0400 Body temperature 98.2 [degF] Marilu Warchol CHARGE ATTENDANT Work Phone: [facility] 01-21-2024 13:53-0400 Body weight 63.05 kg Marilu Warchol CHARGE ATTENDANT Work Phone: [facility] 01-21-2024 13:53-0400 Diastolic blood pressure 78 mm[Hg] Marilu Warchol CHARGE ATTENDANT Work Phone: [facility] 01-21-2024 13:53-0400 Heart rate 108 /min Marilu Warchol CHARGE ATTENDANT Work Phone: [facility] 01-21-2024 13:53-0400 SaO2% (BldA) [Mass fraction] 98 % Marilu Warchol CHARGE ATTENDANT Work Phone: [facility] 01-21-2024 13:53-0400 Systolic blood pressure 132 mm[Hg] Marilu Warchol CHARGE ATTENDANT Work Phone: [facility] 01-15-2024 13:54-0400 Body height 182.9 cm Marilu Warchol CHARGE ATTENDANT Work Phone: [facility] 01-15-2024 13:54-0400 Body mass index (BMI) [Ratio] 19.12 kg/m2 Marilu Warchol CHARGE ATTENDANT Work Phone: [facility] 01-15-2024 13:54-0400 Body temperature 96.3 [degF] Marilu Sterlingchol CHARGE ATTENDANT Work Phone: [facility] 01-15-2024 13:54-0400 Body weight 63.96 kg Marilu Bonner CHARGE ATTENDANT Work Phone: [facility] 01-15-2024 13:54-0400 Diastolic blood pressure 74 mm[Hg] Marilu Sterlingchol CHARGE ATTENDANT Work Phone: [facility] 01-15-2024 13:54-0400 Heart rate 99 /min Marilu Sterlingchol CHARGE ATTENDANT Work Phone: [facility] 01-15-2024 13:54-0400 Respiratory rate 16 /min Marilu Bonner CHARGE ATTENDANT Work Phone: [facility] 01-15-2024 13:54-0400 SaO2% (BldA) [Mass fraction] 97 % Marilu Sterlingchol CHARGE ATTENDANT Work Phone: [facility] 01-15-2024 13:54-0400 Systolic blood pressure 122 mm[Hg] Marilu Bonner CHARGE ATTENDANT Work Phone: [facility] 01-10-2024 14:14-0400 Body height 182.9 cm Ophelia Erika DO Work Phone: [facility] 01-10-2024 14:14-0400 Body mass index (BMI) [Ratio] 18.85 kg/m2 Ophelia Erika DO Work Phone: [facility] 01-10-2024 14:14-0400 Body weight 63.05 kg Ophelia Erika DO Work Phone: [facility] 01-10-2024 14:14-0400 Diastolic blood pressure 84 mm[Hg] Ophelia Erika DO Work Phone: [facility] 01-10-2024 14:14-0400 Heart rate 74 /min Ophelia Erika DO Work Phone: [facility] 01-10-2024 14:14-0400 SaO2% (BldA) [Mass fraction] 88 % Ophelia Erika DO Work Phone: [facility] 01-10-2024 14:14-0400 Systolic blood pressure 133 mm[Hg] Ophelia Erika DO Work Phone: [facility] 12-25-2023 13:00-0400 Body height 182.9 cm Rylan Andrea MD Work Phone: [facility] 12-25-2023 13:00-0400 Body mass index (BMI) [Ratio] 18.44 kg/m2 Rylan Andrea MD Work Phone: [facility] 12-25-2023 13:00-0400 Body temperature 97.2 [degF] Rylan Andrea MD Work Phone: [facility] 12-25-2023 13:00-0400 Body weight 61.69 kg Rylan Andrea MD Work Phone: [facility] 12-25-2023 13:00-0400 Diastolic blood pressure 82 mm[Hg] Rylan Andrea MD Work Phone: [facility] 12-25-2023 13:00-0400 Heart rate 116 /min Rylan Andrea MD Work Phone: [facility] 12-25-2023 13:00-0400 Respiratory rate 16 /min Rylan Andrea MD Work Phone: [facility] 12-25-2023 13:00-0400 SaO2% (BldA) [Mass fraction] 93 % Rylan Andrea MD Work Phone: [facility] 12-25-2023 13:00-0400 Systolic blood pressure 110 mm[Hg] Rylan Andrea MD Work Phone: [facility] 12-21-2023 15:58-0400 Body height 182.9 cm [employer] DO Work Phone: [facility] 12-21-2023 15:58-0400 Body mass index (BMI) [Ratio] 18.92 kg/m2 [employer] DO Work Phone: [facility] 12-21-2023 15:58-0400 Body temperature 97.81 [degF] Ryan Furlong DO Work Phone: [facility] 12-21-2023 15:58-0400 Body weight 63.28 kg Ryan Furlong DO Work Phone: [facility] 12-21-2023 15:58-0400 Diastolic blood pressure 78 mm[Hg] Ryan Furlong DO Work Phone: [facility] 12-21-2023 15:58-0400 Heart rate 96 /min Ryan Furlong DO Work Phone: [facility] 12-21-2023 15:58-0400 Respiratory rate 18 /min Ryan Furlong DO Work Phone: [facility] 12-21-2023 15:58-0400 SaO2% (BldA) [Mass fraction] 92 % Ryan Furlong DO Work Phone: [facility] 12-21-2023 15:58-0400 Systolic blood pressure 108 mm[Hg] Ryan Furlong DO Work Phone: [facility] 06-29-2023 10:54-0500 Body temperature 97.9 [degF] MD Rylan Andrea Work Phone: [facility] 06-29-2023 10:54-0500 Body weight 69.85 kg MD Rylan Andrea Work Phone: [facility] 06-29-2023 10:54-0500 Diastolic blood pressure 88 mm[Hg] MD Rylan Andrea Work Phone: [facility] 06-29-2023 10:54-0500 Heart rate 88 /min MD Rylan Andrea Work Phone: [facility] 06-29-2023 10:54-0500 Respiratory rate 20 /min MD Rylan Andrea Work Phone: [facility] 06-29-2023 10:54-0500 SaO2% (BldA) [Mass fraction] 97 % MD Rylan Andrea Work Phone: [facility] 06-29-2023 10:54-0500 Systolic blood pressure 140 mm[Hg] MD Rylan Andrea Work Phone: [facility] 12-25-2022 11:05-0400 Body temperature 97.7 [degF] MD Rylan Andrea Work Phone: [facility] 12-25-2022 11:05-0400 Body weight 66.95 kg MD Rylan Andrea Work Phone: [facility] 12-25-2022 11:05-0400 Diastolic blood pressure 85 mm[Hg] MD Rylan Andrea Work Phone: [facility] 12-25-2022 11:05-0400 Heart rate 94 /min MD Rylan Andrea Work Phone: [facility] 12-25-2022 11:05-0400 Respiratory rate 18 /min MD Rylan Andrea Work Phone: [facility] 12-25-2022 11:05-0400 SaO2% (BldA) [Mass fraction] 97 % MD Rylan Andrea Work Phone: [facility] 12-25-2022 11:05-0400 Systolic blood pressure 136 mm[Hg] MD Rylan Andrea Work Phone: [facility] 11-01-2022 10:41-0400 Body temperature 97.6 [degF] MD Rylan Andrea Work Phone: [facility] 11-01-2022 10:41-0400 Body weight 68.26 kg MD Rylan Andrea Work Phone: [facility] 11-01-2022 10:41-0400 Diastolic blood pressure 82 mm[Hg] MD Rylan Andrea Work Phone: [facility] 11-01-2022 10:41-0400 Heart rate 103 /min MD Rylan Andrea Work Phone: [facility] 11-01-2022 10:41-0400 Respiratory rate 18 /min MD Rylan Andrea Work Phone: [facility] 11-01-2022 10:41-0400 SaO2% (BldA) [Mass fraction] 99 % MD Rylan Andrea Work Phone: [facility] 11-01-2022 10:41-0400 Systolic blood pressure 121 mm[Hg] MD Rylan Andrea Work Phone: [facility] 10-26-2022 12:05-0400 Body height 182.88 cm MD Rylan Andrea Work Phone: [facility] 10-26-2022 12:05-0400 Body temperature 97.6 [degF] MD Rylan Andrea Work Phone: [facility] 10-26-2022 12:05-0400 Body weight 69 kg MD Rylan Andrea Work Phone: [facility] 10-26-2022 12:05-0400 Diastolic blood pressure 77 mm[Hg] MD Rylan Andrea Work Phone: [facility] 10-26-2022 12:05-0400 Heart rate 100 /min MD Rylan Andrea Work Phone: [facility] 10-26-2022 12:05-0400 Respiratory rate 20 /min MD Rylan Andrea Work Phone: [facility] 10-26-2022 12:05-0400 SaO2% (BldA) [Mass fraction] 98 % MD Rylan Andrea Work Phone: [facility] 10-26-2022 12:05-0400 Systolic blood pressure 120 mm[Hg] MD Rylan Andrea Work Phone: [facility] 09-19-2022 09:33-0400 Body weight 70.39 kg MD Rylan Andrea Work Phone: [facility] 09-19-2022 09:33-0400 Diastolic blood pressure 85 mm[Hg] MD Rylan Andrea Work Phone: [facility] 09-19-2022 09:33-0400 Heart rate 85 /min MD Rylan Andrea Work Phone: [facility] 09-19-2022 09:33-0400 Respiratory rate 20 /min MD Rylan Andrea Work Phone: [facility] 09-19-2022 09:33-0400 SaO2% (BldA) [Mass fraction] 97 % MD Rylan Andrea Work Phone: [facility] 09-19-2022 09:33-0400 Systolic blood pressure 128 mm[Hg] MD Rylan Andrea Work Phone: [facility] 09-04-2022 11:26-0400 Body temperature 98.6 [degF] MD Rylan Andrea Work Phone: [facility] 06-22-2022 13:07-0500 Body height 182.88 cm MD Rylan Andrea Work Phone: [facility] 06-22-2022 13:07-0500 Body temperature 98 [degF] MD Rylan Andrea Work Phone: [facility] 06-22-2022 13:07-0500 Body weight 73.2 kg MD Rylan Andrea Work Phone: [facility] 06-22-2022 13:07-0500 Diastolic blood pressure 88 mm[Hg] MD Rylan Andrea Work Phone: [facility] 06-22-2022 13:07-0500 Heart rate 112 /min MD Rylan Andrea Work Phone: [facility] 06-22-2022 13:07-0500 Respiratory rate 20 /min MD Rylan Andrea Work Phone: [facility] 06-22-2022 13:07-0500 SaO2% (BldA) [Mass fraction] 99 % MD Rylan Andrea Work Phone: [facility] 06-22-2022 13:07-0500 Systolic blood pressure 137 mm[Hg] MD Rylan Andrea Work Phone: [facility] 06-17-2022 12:00-0500 Body temperature 98.1 [degF] MD Rylan Andrea Work Phone: [facility] 06-17-2022 12:00-0500 Diastolic blood pressure 91 mm[Hg] MD Rylan Andrea Work Phone: [facility] 06-17-2022 12:00-0500 Heart rate 94 /min MD Rylan Andrea Work Phone: [facility] 06-17-2022 12:00-0500 Respiratory rate 20 /min MD Rylan Andrea Work Phone: [facility] 06-17-2022 12:00-0500 SaO2% (BldA) [Mass fraction] 97 % MD Rylan Andrea Work Phone: [facility] 06-17-2022 12:00-0500 Systolic blood pressure 142 mm[Hg] MD Rylan Andrea Work Phone: [facility] 06-16-2022 09:51-0500 Body height 182.88 cm MD Rylan Andrea Work Phone: [facility] 06-16-2022 09:51-0500 Body mass index (BMI) [Ratio] 20.2 kg/m2 MD Rylan Andrea Work Phone: [facility] 06-16-2022 09:51-0500 Body weight 67.9 kg MD Rylan Andrea Work Phone: [facility] 06-15-2022 12:00-0500 Body height 185.42 cm Rachid Chase Other [facility] Other 06-15-2022 12:00-0500 Body mass index (BMI) [Ratio] 19.63 kg/m2 Rachid Chaban Other [facility] Other 06-15-2022 12:00-0500 Body temperature 97 [degF] Celsoal Chaban Other [facility] Other 06-15-2022 12:00-0500 Body weight 67.5 kg Rachid Chaban Other [facility] Other 06-15-2022 12:00-0500 Diastolic blood pressure 82 mm[Hg] Celsoal Chaban Other [facility] Other 06-15-2022 12:00-0500 Respiratory rate 20 /min Rachid Chaban Other [facility] Other 06-15-2022 12:00-0500 SaO2% (BldA) [Mass fraction] 98 % Rachid Chaban Other [facility] Other 06-15-2022 12:00-0500 Systolic blood pressure 114 mm[Hg] Celsoal Chaban Other [facility] Other 05-31-2022 15:30-0500 Body height 185.42 cm Rachid Chaban Other [facility] Other 05-31-2022 15:30-0500 Body mass index (BMI) [Ratio] 19.92 kg/m2 Rachid Chaban Other [facility] Other 05-31-2022 15:30-0500 Body temperature 97.6 [degF] Celsoal Chaban Other [facility] Other 05-31-2022 15:30-0500 Body weight 68.49 kg Rachid Chase Other [facility] Other 05-31-2022 15:30-0500 Diastolic blood pressure 80 mm[Hg] Kamal Chaban Other [facility] Other 05-31-2022 15:30-0500 Respiratory rate 20 /min Rachid Blandban Other [facility] Other 05-31-2022 15:30-0500 SaO2% (BldA) [Mass fraction] 98 % Rachid Blandban Other [facility] Other 05-31-2022 15:30-0500 Systolic blood pressure 122 mm[Hg] Rachid Blandban Other [facility] Other 04-21-2022 09:50-0500 Diastolic blood pressure 74 mm[Hg] MD Rylan Adnrea Work Phone: [facility] 04-21-2022 09:50-0500 Heart rate 80 /min MD Rylan Andrea Work Phone: [facility] 04-21-2022 09:50-0500 Respiratory rate 18 /min MD Rylan Andrea Work Phone: [facility] 04-21-2022 09:50-0500 SaO2% (BldA) [Mass fraction] 99 % MD Rylan Andrea Work Phone: [facility] 04-21-2022 09:50-0500 Systolic blood pressure 111 mm[Hg] MD Rylan Andrea Work Phone: [facility] 04-21-2022 08:21-0500 Body height 182.88 cm MD Rylan Andrea Work Phone: [facility] 04-21-2022 08:21-0500 Body weight 70.3 kg MD Rylan Andrea Work Phone: [facility] 04-18-2022 13:59-0500 Diastolic blood pressure 82 mm[Hg] MD Rylan Andrea Work Phone: [facility] 04-18-2022 13:59-0500 Heart rate 99 /min MD Rylan Andrea Work Phone: [facility] 04-18-2022 13:59-0500 Respiratory rate 20 /min MD Rylan Andrea Work Phone: [facility] 04-18-2022 13:59-0500 SaO2% (BldA) [Mass fraction] 99 % MD Rylan Andrea Work Phone: [facility] 04-18-2022 13:59-0500 Systolic blood pressure 117 mm[Hg] MD Rylan Andrea Work Phone: [facility] 04-18-2022 12:41-0500 Body height 185.42 cm MD Rylan Andrea Work Phone: [facility] 04-18-2022 12:41-0500 Body weight 72.12 kg MD Rylan Andrea Work Phone: [facility] 04-14-2022 11:23-0500 Body temperature 98.3 [degF] MD Rylan Andrea Work Phone: [facility] 04-14-2022 11:23-0500 Body weight 70.3 kg MD Rylan Andrea Work Phone: [facility] 04-14-2022 11:23-0500 Diastolic blood pressure 93 mm[Hg] MD Rylan Andrea Work Phone: [facility] 04-14-2022 11:23-0500 Heart rate 95 /min MD Rylan Andrea Work Phone: [facility] 04-14-2022 11:23-0500 Respiratory rate 20 /min MD Rylan Andrea Work Phone: [facility] 04-14-2022 11:23-0500 SaO2% (BldA) [Mass fraction] 100 % MD Rylan Andrea Work Phone: [facility] 04-14-2022 11:23-0500 Systolic blood pressure 130 mm[Hg] MD Rylan Andrea Work Phone: [facility] 04-11-2022 16:03-0500 Body temperature 97.5 [degF] MD Rylan Andrea Work Phone: [facility] 04-11-2022 16:03-0500 Diastolic blood pressure 88 mm[Hg] MD Rylan Andrea Work Phone: [facility] 04-11-2022 16:03-0500 Heart rate 89 /min MD Rylan Andrea Work Phone: [facility] 04-11-2022 16:03-0500 Respiratory rate 15 /min MD Rylan Andrea Work Phone: [facility] 04-11-2022 16:03-0500 SaO2% (BldA) [Mass fraction] 97 % MD Rylan Andrea Work Phone: [facility] 04-11-2022 16:03-0500 Systolic blood pressure 125 mm[Hg] MD Rylan Andrea Work Phone: [facility] 04-11-2022 05:07-0500 Body weight 67.7 kg MD Rylan Andrea Work Phone: [facility] 04-10-2022 15:56-0500 Body height 182.88 cm MD Rylan Andrea Work Phone: [facility] 04-10-2022 15:56-0500 Body temperature 98.2 [degF] MD Rylan Andrea Work Phone: [facility] 04-10-2022 15:56-0500 Body weight 66.7 kg MD Rylan Andrea Work Phone: [facility] 04-10-2022 15:56-0500 Diastolic blood pressure 99 mm[Hg] MD Rylan Andrea Work Phone: [facility] 04-10-2022 15:56-0500 Heart rate 99 /min MD Rylan Andrea Work Phone: [facility] 04-10-2022 15:56-0500 Respiratory rate 20 /min MD Rylan Andrea Work Phone: [facility] 04-10-2022 15:56-0500 SaO2% (BldA) [Mass fraction] 98 % MD Rylan Andrea Work Phone: [facility] 04-10-2022 15:56-0500 Systolic blood pressure 148 mm[Hg] MD Rylan Andrea Work Phone: [facility] 02-27-2022 14:35-0400 Body height 182.88 cm MD Rylan Andrea Work Phone: [facility] 02-27-2022 14:35-0400 Body temperature 97.7 [degF] MD Rylan Andrea Work Phone: [facility] 02-27-2022 14:35-0400 Body weight 70.35 kg MD Rylan Andrea Work Phone: [facility] 02-27-2022 14:35-0400 Diastolic blood pressure 90 mm[Hg] MD Rylan Andrea Work Phone: [facility] 02-27-2022 14:35-0400 Heart rate 80 /min MD Rylan Andrea Work Phone: [facility] 02-27-2022 14:35-0400 Respiratory rate 20 /min MD Rylan Andrea Work Phone: [facility] 02-27-2022 14:35-0400 SaO2% (BldA) [Mass fraction] 99 % MD Rylan Andrea Work Phone: [facility] 02-27-2022 14:35-0400 Systolic blood pressure 138 mm[Hg] MD Rylan Andrea Work Phone: [facility] 09-13-2021 16:00-0400 Body height 185.42 cm Anita Gascaw Other [facility] Other 09-13-2021 16:00-0400 Body mass index (BMI) [Ratio] 20.45 kg/m2 Anita Lincoln Other [facility] Other 09-13-2021 16:00-0400 Body temperature 99.4 [degF] Anita Lincoln Other [facility] Other 09-13-2021 16:00-0400 Body weight 70.31 kg Anita Lincoln Other [facility] Other 09-13-2021 16:00-0400 Diastolic blood pressure 82 mm[Hg] Anita Lincoln Other [facility] Other 09-13-2021 16:00-0400 Respiratory rate 18 /min Anita Gascaw Other [facility] Other 09-13-2021 16:00-0400 SaO2% (BldA) [Mass fraction] 97 % Anita Gascaw Other [facility] Other 09-13-2021 16:00-0400 Systolic blood pressure 160 mm[Hg] Anita Salazar Other [facility] Other 09-08-2021 10:09-0400 Diastolic blood pressure 78 mm[Hg] Rylan Andrea Work Phone: [facility] DO Work Phone: 09-08-2021 10:09-0400 Systolic blood pressure 118 mm[Hg] Rylan Flaherty [employer] Work Phone: [facility] DO Work Phone: 09-08-2021 10:05-0400 Body height 182.88 cm Rylan Flaherty [employer] Work Phone: [facility] DO Work Phone: 09-08-2021 10:05-0400 Body mass index (BMI) [Ratio] 21.16 kg/m2 Rylan Flaherty [employer] Work Phone: [facility] DO Work Phone: 09-08-2021 10:05-0400 Body surface area Derived from formula 1.92 m2 Rylan Flaherty [employer] Work Phone: [facility] [facility] DO Work Phone: 09-08-2021 10:05-0400 Body weight 70.76 kg Rylan Flaherty [employer] Work Phone: [facility] DO Work Phone: 09-08-2021 10:05-0400 Diastolic blood pressure 76 mm[Hg] Rylan Flaherty [employer] Work Phone: [facility] DO Work Phone: 09-08-2021 10:05-0400 Heart rate 96 /min Rylan Flaherty [employer] Work Phone: [facility] DO Work Phone: 09-08-2021 10:05-0400 Systolic blood pressure 120 mm[Hg] Rylan Flaherty [employer] Work Phone: [facility] DO Work Phone: 09-08-2021 10:05-0400 20 1 Rylan Andrea Work Phone: [facility] DO Work Phone: Comment on above: [id number] TS Encounters Encounter Date Encounter Type Care Provider Facility Start: 02-03-2025 End: 02-03-2025 Bamboo flowsheet Nilsa R Lause CHARGE ATTENDANT Work Phone: [facility] Start: 02-03-2025 End: 02-03-2025 Bamboo flowsheet Nilsa R Lause CHARGE ATTENDANT Work Phone: [facility] Start: 02-03-2025 End: 02-03-2025 Office outpatient visit 25 minutes Nilsa R Lause CHARGE ATTENDANT Work Phone: [facility] Comment on above: Alcoholic liver dise ase, unspecified (HHS-HCC) (Primary Dx); Smoker; Elevated liver enzymes; Alcohol use disorder, mild, abuse; Right upper quadrant pain; Right atrial enlargement; Right ventricular dilation; Shortness of breath Start: 02-03-2025 End: 02-03-2025 ambulatory NILSA R LAUSE Not Available Start: 01-13-2025 End: 01-13-2025 Assay of hemosiderin, quant Nilsa R Lause CHARGE ATTENDANT Work Phone: [facility] Start: 01-13-2025 End: 01-13-2025 Bamboo flowsheet Nilsa R Lause CHARGE ATTENDANT Work Phone: [facility] Start: 01-13-2025 End: 01-13-2025 Bamboo flowsheet Nilsa R Lause CHARGE ATTENDANT Work Phone: [facility] Start: 01-13-2025 End: 01-13-2025 Office outpatient visit 25 minutes Nilsa R Lause CHARGE ATTENDANT Work Phone: [facility] Comment on above: Acute non-recurrent frontal sinusitis (Primary Dx); 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 ; Chronic obstructive pulmonary disease, unspecified COPD type (HCC); Small cell lung cancer in adult (HCC); History of primary malignant neoplasm of bronchus; Shortness of breath; Routine general medical examination at health care facility Start: 01-13-2025 End: 01-13-2025 ambulatory NILSA SOLOMON Not Available Start: 12-23-2024 ambulatory Rylan Andrea Facility:[facility] Start: 11-26-2024 End: 11-26-2024 Clinisync Result Encounter Generic External Data Provider [facility] External Department Unsolicited Start: 11-26-2024 End: 11-26-2024 Clinisync Result Encounter Generic External Data Provider [facility] External Department Unsolicited Start: 09-15-2024 End: 09-15-2024 ambulatory NILSA SOLOMON Not Available Start: 09-15-2024 End: 09-15-2024 Office outpatient visit 25 minutes Nilsa Solomon CHARGE ATTENDANT Work Phone: [facility] Comment on above: Anxiety (Primary Dx) ; [...] [facility] Start: 07-14-2024 End: 07-14-2024 ambulatory [facility] Work Phone: Start: 07-14-2024 End: 07-14-2024 Patient encounter procedure [facility] Work Phone: Start: 07-14-2024 End: 07-14-2024 Postop follow up visit related to original px Karen Fernandez MD Work Phone: [facility] Comment on above: Encounter for remova l of sutures (Primary Dx) Start: 07-14-2024 End: 07-14-2024 ambulatory KAREN QUINONEZI Not Available Start: 07-11-2024 End: 07-11-2024 External Result Encounter Estela Rosales Kojo DO Work Phone: [facility] External Department Unsolicited Start: 07-11-2024 End: 07-11-2024 External Result Encounter Estela Rosales Kojo DO Work Phone: [facility] External Department Unsolicited Start: 07-08-2024 End: 07-08-2024 Clinisync Result Encounter Generic External Data Provider [facility] External Department Unsolicited Start: 07-08-2024 End: 07-08-2024 Clinisync Result Encounter Generic External Data Provider [facility] External Department Unsolicited Start: 07-07-2024 End: 07-07-2024 Patient encounter procedure Karen Husainjah MD Work Phone: [facility] Comment [...] Office outpatient visit 25 minutes Marilu Bonner CHARGE ATTENDANT Work Phone: [facility] Comment on above: Primary insomnia (Pr imary Dx); Primary pulmonary hypertension (CMS/HCC); Hair loss; Dry skin; 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) Start: 06-17-2024 End: 06-17-2024 ambulatory MARILU BONNER Not Available Start: 06-17-2024 End: 06-17-2024 Bamboo flowsheet Marilu Bonner CHARGE ATTENDANT Work Phone: [facility] Start: 06-17-2024 End: 06-17-2024 Bamboo flowsheet Marilu Sterlingchol CHARGE ATTENDANT Work Phone: [facility] Start: 06-16-2024 End: 06-16-2024 Office outpatient new 30 minutes Karen Fernandez MD Work Phone: [facility] Comment on above: EIC (epidermal inclu sergei cyst) (Primary Dx); Other specified erythematous conditions Start: 06-16-2024 End: 06-16-2024 ambulatory KAREN FERNANDEZ Not Available Start: 06-16-2024 End: 06-16-2024 Bamboo flowsluis fernando Fernandez MD Work Phone: [facility] Start: 06-16-2024 End: 06-16-2024 Bamboo flowsluis fernando Fernandez MD Work Phone: [facility] Start: 06-03-2024 End: 06-03-2024 Clinisync Result Encounter Generic External Data Provider [facility] External Department Unsolicited Start: 06-03-2024 End: 06-03-2024 Clinisync Result Encounter Generic External Data Provider [facility] External Department Unsolicited Start: 03-17-2024 End: 03-17-2024 Bamboo flowsheet Marilu Bonner CHARGE ATTENDANT Work Phone: [facility] Start: 03-17-2024 End: 03-17-2024 Bamboo flowsheet Marilu Bonner CHARGE ATTENDANT Work Phone: [facility] Start: 03-17-2024 End: 03-17-2024 Office outpatient visit 25 minutes Marilu Bonner CHARGE ATTENDANT Work Phone: [facility] Comment on above: Chronic obstructive pulmonary [...] / Non-visit MD Rylan Andrea Work Phone: [facility] Work Phone: Start: 02-18-2024 End: 02-18-2024 Admission to same day surgery center MD Rylan Andrea Work Phone: [facility] Work Phone: Start: 02-18-2024 End: 02-18-2024 ambulatory MD Rylan Andrea Work Phone: [facility] Work Phone: Start: 02-04-2024 End: 02-04-2024 Office outpatient visit 25 minutes Marilu Bonner CHARGE ATTENDANT Work Phone: [facility] Comment on above: Need for follow-up c are after discharge (Primary Dx); Current moderate episode of major depressive disorder without prior episode (HCC) (CMS/HCC) Start: 01-31-2024 End: 01-31-2024 ambulatory [facility] Work Phone: Start: 01-31-2024 End: 01-31-2024 Patient encounter procedure [facility] Work Phone: Start: 01-21-2024 End: 01-21-2024 Patient encounter procedure Marilu Bonner CHARGE ATTENDANT Work Phone: [facility] Work Phone: Start: 01-21-2024 End: 01-21-2024 Periodic preventive med est patient 40-64yrs Marilu Bonner CHARGE ATTENDANT Work Phone: [facility] Comment on above: Encounter for annual wellness visit (AWV) in Medicare patient (Primary Dx) Start: 01-15-2024 End: 01-15-2024 Bamboo flowsheet Marilu Bonner CHARGE ATTENDANT Work Phone: [facility] Start: 01-15-2024 End: 01-15-2024 Bamboo flowsheet Marilu Bonner CHARGE ATTENDANT Work Phone: [facility] Start: 01-15-2024 End: 01-15-2024 Transitional care manage srvc 14 day discharge Marilu Bonner CHARGE ATTENDANT Work Phone: [facility] Comment on above: Need for follow-up c are after discharge (Primary Dx); Primary insomnia; Gastroesophageal reflux disease without esophagitis; Hx SBO; Constipation, unspecified constipation type; Mass of chin Start: 01-11-2024 ambulatory Manpreet SALEEM Facility:[facility] Start: 01-10-2024 End: 01-10-2024 Office outpatient new 45 minutes Ophelia Narinder Erika DO Work Phone: [facility] Comment on above: Chronic obstructive pulmonary disease, unspecified COPD type (CMS/HCC) (Primary Dx); Small pleural effusion; Small cell lung cancer in adult (CMS/HCC); Shortness of breath Start: 01-09-2024 End: 01-09-2024 ambulatory Manpreet SALEEM Facility:[id number] Start: 01-07-2024 Non-patient / Non-visit [facility] Work Phone: Start: 12-25-2023 End: 12-25-2023 Office outpatient visit 25 minutes Rylan Andrea MD Work Phone: [facility] Comment on above: Essential hypertensi on (CMS/HCC) (Primary Dx); Burning with urination; Urinary tract infection with hematuria, site unspecified; Gastroesophageal reflux disease without esophagitis; 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); Nausea; Generalized abdominal pain; Primary pulmonary hypertension (CMS/HCC) Start: 12-21-2023 End: 12-22-2023 Continuing Care Ryan Kang DO Work Phone: [facility] Comment on above: Thoracic outlet synd james (Primary Dx); Small cell lung cancer in adult (CMS-HCC); Essential hypertension; Adult failure to thrive; Costochondral junction syndrome; Hyposmolality syndrome; Severe episode of recurrent major depressive disorder, 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); Insomnia, unspecified type; Hypothyroidism, unspecified type Start: 12-16-2023 End: 12-20-2023 Non-patient / Non-visit [facility] Work Phone: Start: 12-13-2023 End: 12-20-2023 Non-patient / Non-visit [facility] Work Phone: Start: 09-11-2023 ambulatory RYLAN ANDREA [facility] Start: 06-29-2023 End: 06-29-2023 ambulatory MD Rylan Andrea Work Phone: [facility] Work Phone: Start: 06-29-2023 End: 06-29-2023 Patient encounter procedure MD Rylan Andrea Work Phone: [facility] Work Phone: Start: 06-29-2023 Registered Recurring MD Rylan Andrea [facility] Work Phone: Start: 06-25-2023 External Result Encounter Estela Rosales Kojo DO Work Phone: [facility] External Department Unsolicited Start: 06-25-2023 External Result Encounter Estela Connie Varma DO Work Phone: [facility] External Department Unsolicited Start: 04-05-2023 End: 04-28-2024 Orders Only Rylan Andrea MD Work Phone: [facility] Start: 12-25-2022 End: 12-25-2022 ambulatory MD Rylan Andrea Work Phone: [facility] Work Phone: Start: 12-25-2022 End: 12-25-2022 Registered Recurring MD Rylan Andrea [facility] Work Phone: Start: 11-01-2022 End: 11-01-2022 ambulatory MD Rylan Andrea Work Phone: [facility] Work Phone: Start: 11-01-2022 End: 11-01-2022 Registered Recurring MD Rylan Andrea Work Phone: [facility] Work Phone: Start: 10-26-2022 End: 10-26-2022 Emergency department patient visit MD Rylan Andrea Work Phone: [facility] Work Phone: Start: 10-26-2022 Registered Recurring MD Rylan Andrea Work Phone: [facility] Work Phone: Start: 10-18-2022 End: 10-18-2022 ambulatory MD Rylan Andrea Work Phone: [facility] Work Phone: Start: 10-18-2022 End: 10-18-2022 Patient encounter procedure MD Rylan Andrea Work Phone: [facility] [place] Work Phone: Start: 10-10-2022 End: 10-10-[address] RYLAN ANDREA Facility:[facility] Start: 10-03-2022 End: 10-03-[address] RYLAN ANDREA Facility:[facility] Start: 09-19-2022 End: 09-19-2022 ambulatory MD Rylan Andrea Work Phone: [facility] Work Phone: Start: 09-19-2022 End: 09-19-2022 Registered Recurring MD Rylan Andrea Work Phone: [facility] Work Phone: Start: 09-19-2022 Registered Recurring MD Rylan Andrea Work Phone: [facility] Work Phone: Start: 09-11-2022 End: 09-11-[address] RYLAN ANDREA Facility:[facility] Start: 09-08-2022 End: 09-08-[address] RYLAN ANDREA Facility:[facility] Start: 09-04-2022 End: 09-04-[address] RYLAN ANDREA Facility:[facility] Start: 09-01-2022 End: 09-02-[address] RYLAN ANDREA Facility:[facility] Start: 08-27-2022 End: 08-27-[address] MELANI IBRAHIM Facility:[facility] Start: 06-22-2022 End: 06-22-2022 ambulatory MD Rylan Andrea Work Phone: [facility] Work Phone: Start: 06-22-2022 End: 06-22-2022 Registered Recurring MD Rylan Andrea Work Phone: [facility] Work Phone: Start: 06-18-2022 End: 06-18-[address] JESSE RAMOS Facility:[facility] Start: 06-16-2022 End: 06-17-2022 Admission to same day surgery center MD Rylan Andrea Work Phone: [facility] [place] Start: 06-15-2022 Office outpatient visit 25 minutes Kamal Chaban [facility] Start: 06-15-2022 End: 06-15-2022 ambulatory MD Rylan Andrea Work Phone: [facility] Work Phone: Start: 06-15-2022 End: 06-15-2022 Patient encounter procedure MD Rylan Andrea Work Phone: [facility] Work Phone: Start: 06-01-2022 End: 06-01-2022 ambulatory MD Rylan Andrea Work Phone: [facility] Work Phone: Start: 06-01-2022 End: 06-01-2022 Patient encounter procedure MD Rylan Andrea Work Phone: [facility]-CT Scan [facility] [place] Work Phone: Start: 05-31-2022 End: 05-31-2022 ambulatory Rachid Chase Other [facility] [employer] Other Start: 05-31-2022 Office outpatient ne w 45 minutes Rachid Chase [facility] Start: 04-21-2022 End: 04-21-2022 Admission to same day surgery center MD Rylan Andrea Work Phone: [facility]-Ultrasound [facility] [place] Start: 04-21-2022 End: 04-21-2022 ambulatory MD Rylan Andrea Work Phone: [facility] Work Phone: Start: 04-18-2022 End: 04-18-2022 Admission to same day surgery center MD Rylan Andrea Work Phone: [facility]-Ultrasound [facility] [place] Start: 04-18-2022 End: 04-18-2022 ambulatory MD Rylan Andrea Work Phone: [facility] Work Phone: Start: 04-14-2022 End: 04-14-2022 ambulatory MD Rylan Andrea Work Phone: [facility] Work Phone: Start: 04-14-2022 End: 04-14-2022 Registered Recurring MD Rylan Andrea Work Phone: [facility]-Cancer Center Start: 04-14-2022 Registered Recurring MD Rylan Andrea Work Phone: [facility] Start: 04-10-2022 End: 04-11-2022 Evaluation and management of inpatient MD Rylan Andrea Work Phone: [facility]-3 [place] [facility] Start: 04-10-2022 observation encounter MD Rylan Andrea Work Phone: [facility] Work Phone: Start: 04-10-2022 Registered Recurring MD Rylan Andrea Work Phone: [facility] Start: 02-27-2022 End: 02-27-2022 ambulatory MD Rylan Andrea Work Phone: [facility] Work Phone: Start: 02-27-2022 End: 02-27-2022 Registered Recurring MD Rylan Andrea [facility] Start: 11-29-2021 ambulatory Rylan Andrea Facil ity: Start: 11-23-2021 End: 11-24-[address] MARCE PAGAN Facility: Start: 09-13-2021 Chart Update Rylan Andrea Work Phone: [facility] 250 DO Work Phone: Start: 09-13-2021 End: 09-13-2021 ambulatory Anita Lincoln Other [facility] [employer] Other Start: 09-13-2021 Office outpatient visit 25 minutes Anita Lincoln [facility] Palliative Care Start: 09-09-2021 ambulatory Rylan Andrea Facil [id number] Start: 09-09-2021 [facility] Provider: Lukas Oliveira, Status: Pen, Time: 1:00 PM Rylan Andrea Work Phone: [facility] 250 DO Work Phone: Start: 09-08-2021 Office consultation new/estab patient 80 min Rylan Andrea Work Phone: [facility] [facility] DO Work Phone: Start: 09-08-2021 ambulatory Estela Varma Facility: Start: 08-06-2020 End: 08-07-2020 Patient encounter procedure [facility] Start: 04-24-2018 End: 05-14-2018 Patient encounter procedure [facility] Procedures Date Procedure Procedure Detail Performing Clinician Start: 11-26-2024 ALL T3 FREE Generic External Data Provider Start: 11-26-2024 ALL THYROID STIM HORMONE Generic Externa l Data Provider Start: 07-11-2024 Complete blood count with white cell differential, automated Estela Rosales Kojo DO Work Phone: Start: 07-11-2024 Comprehensive metabolic panel Estela Rosales Kojo DO Work Phone: Start: 07-08-2024 Us soft [...] er Work Phone: Start: 02-18-2024 Colonoscopy Marilu Warchol CHARGE ATTENDANT Work Phone: Start: 12-25-2023 Urnls dip stick/tablet rgnt non-auto w/o micrscp Rylan Andrea MD Work Phone: Start: 12-25-2023 Culture bacterial quanttative colony count urine Rylan Andrea MD Work Phone: Start: 06-25-2023 Carcinoembryonic antigen cea Estela taveras DO Work Phone: Comment on above: Serial tumor marker results determined b y assays using different manufacturers or methods may not be comparable. [facility] Laboratory manager of security and method: VALENTINE UNICEL DXI, 2 SITE IMMUNOENZYMATIC SANDWICH ASSAY. Start: 06-25-2023 Positron emission tomography with computed tomography MD Rylan Andrea Work Phone: Start: 06-25-2023 Carcinoembryonic antigen cea Estela Connie Varma DO Work Phone: Start: 06-25-2023 Complete [...] Start: 06-17-2022 Plain chest X-ray MD Rylan Adnrea Work Phone: Start: 06-16-2022 End: 06-16-2022 Plain [...] Start: 04-11-2022 Aerobic microbial culture MD Rylan norton Work Phone: Start: 11-29-2022 Anaerobic microbial culture MD Rylan ngo Work [...] contrast MD Rylan pierce Work Phone: Start: 01-03-2022 Computed tomography of abdomen and pelvis with contrast MD Rylan Andrea Work Phone: Start: 01-03-2022 CT of thorax with contrast MD Rylan pierce Work Phone: Start: 09-02-2021 Positron emission tomography [...] MD Rylan Lawrence er Work Phone: Start: 01-31-2021 Plain chest X-ray MD Rylan Andrea Work Phone: Start: 12-03-2020 CT of head with contrast MD Rylan Andrea Work Phone: Start: 12-03-2020 CT of thorax with contrast MD Rylan Lawrence er Work Phone: Start: 09-08-2020 CT of thorax with contrast MD Rylan Lawrence er Work Phone: Start: 07-20-2020 MRI of head MD Rylan Andrea Work Phone: Start: 03-23-2020 Computed tomography of abdomen and pelvis with contrast MD Rylan Andrea Work Phone: Start: 03-23-2020 CT of thorax with contrast MD Rylan Lawrence er Work Phone: Start: 11-24-2019 CT of head with contrast MD Rylan Andrea Work Phone: Start: 10-24-2017 Colonoscopy Estela Varma DO Work Phone: Aerobic microbial culture MD Rylan Andrea Work Phone: Anaerobic microbial culture MD Rylan Andrea Work Phone: Blood culture for ba cteria, including anaerobic screen MD Rylan Andrea Work Phone: Insertion of implant able venous access port Rylan Andrea Work Phone: Investigation of tra nsfusion reaction MD Rylan Andrea Work Phone: Surgical repair of upper extremity Rylan Andrea Work Phone: Total colonoscopy Rylan bray Work Phone: Comment on above: 2015; Vasectomy Rylan Andrea Work Phone: Plan of Treatment Date Care Activity Detail Author Start: 02-17-2034 Screening for malignant neoplasm of colon [facility] Start: 10-25-2027 Screening for malignant neoplasm of colon [facility] Healthcare Start: 01-13-2026 Medicare Annual Wellness (AWV) Medicare Annual Wellness (AWV) [facility] Start: 04-13-2025 End: 04-13-2025 Patient encounter procedure 04/13/2025 2:00 PM EST Office Visit YUNIER [facility] [address] [place] [address] Nilsa Solomon NP [address] [place] [phone] [facility] Start: 03-11-2025 Influenza vaccination Influenza Vaccine (#1) [facility] Comment on above: Postponed from 01/12/2025 (Patient Refus ed) Start: 02-03-2025 End: 02-03-2027 Echocardiogram 2D complete Echocardiogram 2D complete Echocardiography Routine Right upper quadrant pain Right atrial enlargement Right ventricular dilation Shortness of breath Expected: 02/03/2025 (Approximate), Expires: 02/03/2027 [facility] Comment on above: Expected: 02/03/2025 (Approximate), Expi res: 02/03/2027 Start: 02-03-2025 End: 02-03-2026 US Abdomen limited US LIVER Imaging Routine Alcoholic liver disease, unspecified (HHS-HCC) Smoker Elevated liver enzymes Alcohol use disorder, mild, abuse Expected: 02/03/2025, Expires: 02/03/2026 [facility] Work Phone: Comment on above: Expected: 02/03/2025, Expires: Start: 02-03-2025 End: 02-03-2025 Patient encounter procedure 02/03/2025 11:00 AM EDT Office Visit [facility] [address] [place] [phone] Nilsa Solomon NP [address] [place] [phone] Arrived [facility] Comment on above: Arrived Start: 01-20-2025 Medicare Annual Wellness (AWV) Medicare Annual Wellness (AWV) [facility] Start: 01-14-2025 End: 01-14-2026 CT Chest WO contrast CT chest wo IV contrast Imaging Routine Chronic obstructive pulmonary disease, unspecified COPD type (HCC) Acute non-recurrent frontal sinusitis Small cell lung cancer in adult (HCC) History of primary malignant neoplasm of bronchus Shortness of breath Expected: 01/14/2025, Expires: 01/14/2026 [facility] Work Phone: Comment on above: Expected: 01/14/2025, Expires: Start: 01-13-2025 End: 01-13-2025 Patient encounter procedure [facility] Comment on above: Arrived Start: 01-12-2025 Influenza vaccination [facility] Start: 12-20-2024 Adult BMI Screening Adult BMI Screening [facility] Start: 11-10-2024 Influenza vaccination Influenza Vaccine (#1) [facility] Comment on above: Postponed from 01/13/2024 (Supply/Drug S hortage) Start: 09-17-2024 End: 09-17-2025 Thyroxine (T4) free [Mass/volume] in Serum or Plasma T4, free Lab Routine 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) Expected: 09/17/2024 (Approximate), Expires: 09/17/2025 [facility] Comment on above: Expected: 09/17/2024 (Approximate), Expi res: 09/17/2025 Start: 09-17-2024 End: 09-17-2025 Triiodothyronine (T3) Free [Mass/volume] in Serum or Plasma T3, free Lab Routine 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) Expected: 09/17/2024 (Approximate), Expires: 09/17/2025 [facility] Comment on above: Expected: 09/17/2024 (Approximate), Expi res: 09/17/2025 Start: 09-15-2024 End: 09-15-2024 Patient encounter procedure 09/15/2024 2:00 PM EDT Office Visit [facility] [address] [place] [phone] Marilu Bonner NP [address] [place] [address] [facility] Start: 07-21-2024 End: 07-21-2024 Patient encounter procedure [facility] Start: 07-14-2024 End: 07-14-2024 Patient encounter procedure 07/14/2024 1:05 PM EST Office Visit [facility] [address] [place] [phone] Karen Fernandez MD [address] [place] [address] Arrived [facility] Comment on above: Arrived Start: 07-14-2024 End: 07-14-2024 Patient encounter procedure 07/14/2024 10:25 AM EST Office Visit [facility] [address] [place] [phone] Karen Fernandez MD [address] [place] [address] [facility] Start: 07-07-2024 End: 07-07-2024 Patient encounter procedure 07/07/2024 8:45 AM EST Procedure Visit [facility] [address] [place] [phone] Karen Fernandez MD [address] [place] [address] [facility] Start: 06-17-2024 End: 06-17-2024 Patient encounter procedure [facility] Comment on above: Encounter for annual wellness visit (AWV ) in Medicare patient (Primary Dx); Primary pulmonary hypertension ([facility]/HCC) Start: 06-16-2024 End: 06-16-2024 Patient encounter procedure [facility] Comment on above: Mass of chin Start: 06-12-2024 End: 06-12-2024 Patient encounter procedure 06/12/2024 2:40 PM EST Office Visit [facility] [address] [place] [phone] Marilu Bonner NP [address] [place] [address] [facility] Start: 05-05-2024 End: 05-05-2024 Patient encounter procedure 05/05/2024 2:35 PM EST Office Visit [facility] [address] [place] [phone] Karen Fernandez MD [address] [place] [address] [facility] Start: 04-22-2024 End: 04-22-2024 Patient encounter procedure 04/22/2024 2:00 PM EST Office Visit [facility] [address] [place] [address] Marilu Bonner NP [address] [place] [address] [facility] Start: 04-08-2024 End: 04-08-2024 Patient encounter procedure 04/08/2024 3:15 PM EST Office Visit [facility] [address] [place] [address] Ophelia James, [address] [place] [address] [facility] Start: 04-03-2024 End: 04-03-2024 Patient encounter procedure 04/03/2024 3:00 PM EST Office Visit [facility] [address] [place] [address] Marilu Bonner NP [address] [place] [address] [facility] Start: 03-17-2024 End: 03-17-2024 Patient encounter procedure 03/17/2024 2:00 PM EST Office Visit [facility] [address] [place] [address] Marilu Bonner NP [address] [place] [address] Person consulting for explanation of examination or test finding (Primary Dx); Alcoholic liver disease, unspecified (CMS/HCC); Atherosclerosis of aorta (CMS/HCC) [facility] Comment on above: Person consulting for explanation of exa mination or test finding (Primary Dx); Alcoholic liver disease, unspecified (CMS/HCC); Atherosclerosis of aorta (CMS/HCC) Start: 03-14-2024 Influenza vaccination Influenza Vaccine (#1) [facility] Comment on above: Postponed from 01/13/2024 (Patient Refus ed) Start: 03-03-2024 End: 03-03-2024 Patient encounter procedure 03/03/2024 2:00 PM EDT Office Visit [facility] [address] [place] [phone] Marilu Bonner NP [address] [place] [address] [facility] Start: 02-18-2024 End: 02-18-2024 [facility] Start: 02-12-2024 End: 02-12-2024 Patient encounter procedure 02/12/2024 2:20 PM EDT Office Visit [facility] [address] [place] [phone] Marilu Bonner CHARGE ATTENDANT [address] [place] [address] [facility] Start: 01-21-2024 End: 01-21-2024 Patient encounter procedure 01/21/2024 2:00 PM EDT Office Visit [facility] [address] [place] [phone] Marilu Bonner CHARGE ATTENDANT [address] [place] [address] [facility] Start: 01-17-2024 End: 01-17-2024 Patient encounter procedure 01/17/2024 9:50 AM EDT Procedure Visit [facility] Wally Mcmahon, DO [address] [place] [address] [facility] Start: 01-15-2024 End: 01-15-2024 Patient encounter procedure [facility] Comment on above: Need for follow-up care after discharge (Primary Dx) Start: 01-13-2024 Influenza vaccination [facility] Start: 01-10-2024 End: 01-10-2024 Patient encounter procedure 01/10/2024 2:30 PM EDT Consult [facility] [address] [place] [phone] Ophelia James DO [address] [place] [address] [facility] Start: 01-08-2024 End: 01-08-2024 Patient encounter procedure 01/08/2024 4:20 PM EDT Office Visit [facility] [address] [place] [address] Rylan Andrea MD [address] [place] [address] [facility] Start: 11-11-2023 Influenza vaccination Influenza Vaccine (#1) [facility] Comment on above: Postponed from 01/12/2023 (Patient Refus ed) Start: 07-10-2023 End: 07-10-2023 Patient encounter procedure 07/10/2023 1:40 PM EST Office Visit [facility] [address] [place] [address] Rylan Andrea MD [address] [place] [address] [facility] Start: 06-25-2023 [facility] Start: 12-11-2022 [facility] Start: 10-26-2022 Erythropoietin (EPO) [Units/volume] in Serum or Plasma [facility] Start: 06-17-2022 [facility] Start: 06-16-2022 Referral to clinical staffing director [facility] Start: 04-21-2022 [facility] Start: 04-21-2022 Ultrasonic guidance for thoracentesis [facility] Start: 04-18-2022 [facility] Start: 04-18-2022 Ultrasonic guidance for thoracentesis [facility] Start: 04-14-2022 [facility] Start: 04-11-2022 [facility] Start: 04-11-2022 Troponin I.cardiac [Mass/volume] in Serum or Plasma by High sensitivity method [facility] Start: 04-10-2022 Referral to oncologist [facility] Start: 04-10-2022 Hospital admission [facility] Start: 04-10-2022 [facility] Start: 02-27-2022 [facility] Start: 11-29-2021 [facility], Provider: Lukas Oliveira, Status: Pen, Time: 11:10 AM [facility], Provider: Lukas Oliveira, Status: Pen, Time: 11:10 AM [facility] [address] DO Work Phone: Start: 09-05-2021 [facility] Start: 08-22-2021 [facility] Start: 04-05-2021 [facility] Start: 02-01-2021 [facility] Start: 09-29-2020 COVID-19 Vaccine (3 - Pfizer risk series) COVID-19 Vaccine (3 - Pfizer risk series) [facility] Start: 08-16-2020 [facility] Start: 08-05-2020 [facility] Start: 07-26-2020 [facility] Start: 07-06-2020 [facility] Start: 06-29-2020 [facility] Start: 06-14-2020 [facility] Start: 05-24-2020 [facility] Start: 05-03-2020 [facility] Start: 04-12-2020 [facility] Start: 04-12-2020 [facility] Start: 03-08-2020 [facility] Start: 02-24-2020 [facility] Start: 02-18-2020 [facility] Start: 02-16-2020 End: 02-16-2020 [facility] Start: 02-16-2020 [facility] Start: 02-10-2020 [facility] Start: 02-04-2020 End: 02-04-2020 [facility] Start: 01-28-2020 [facility] Start: 01-26-2020 [facility] Start: 01-26-2020 [facility] Start: 01-21-2020 [facility] Start: 01-21-2020 End: 01-21-2020 [facility] Start: 01-06-2020 [facility] Start: 01-05-2020 [facility] Start: 12-15-2019 [facility] Start: 11-24-2019 [facility] Start: 1984 Administration of varicella zoster vaccine Zoster (Shingles) Vaccine (1 of 2) [facility] Start: 1984 DTaP,Tdap and Td Vaccines (1 - Tdap) DTaP,Tdap and Td Vaccines (1 - Tdap) [facility] Start: 1977 Depression Screening Depression Screening [facility] Start: 1977 Tobacco Screening Tobacco Screening [facility] Start: 1965 Medicare Annual Wellness (AWV) Medicare Annual Wellness (AWV) [facility] Start: 1965 Screening for malignant neoplasm of colon [facility] Healthcare Amylase [Enzymatic activity/volume] in Serum or Plasma Amylase Lab Routine 06/25/2023 7:57 AM EST [facility] Bacteria identified in Blood by Culture [facility] Blood culture for bacteria, including anaerobic screen Blood Culture [facility] Carcinoembryonic Ag [Mass/volume] in Serum or Plasma [facility] Comprehensive metabo lic 1999 panel - Serum or Plasma [facility] Comprehensive metabo lic 1999 panel - Serum or Plasma [facility] Comprehensive metabo lic 1999 panel - Serum or Plasma [facility] Comprehensive metabo lic 1999 panel - Serum or Plasma [facility] Comprehensive metabo lic 1999 panel - Serum or Plasma Comprehensive metabolic panel Lab Routine 06/25/2023 7:57 AM EST [facility] Work Phone: Comprehensive metabo lic 1999 panel - Serum or Plasma [facility] Comprehensive metabo lic 1999 panel - Serum or Plasma [facility] CT Abdomen and Pelvi s W contrast IV [facility] CT Abdomen and Pelvi s W contrast IV [facility] CT Abdomen and Pelvi s W contrast IV [facility] CT Abdomen and Pelvi s W contrast IV [facility] CT Chest W contrast IV [facility] CT Chest W contrast IV [facility] CT Chest W contrast IV [facility] CT Chest W contrast IV [facility] Dermatopathology exam Dermatopat hology exam Pathology and Cytology Timed Epidermal inclusion cyst Release Upon Ordering for 1 Occurrences starting 07/07/2024 [facility] [employer] Work Phone: Comment on above: Release Upon Ordering for 1 Occurrences starting 07/07/2024 Erythrocyte sediment ation rate by Photometric method [facility] Erythropoietin (EPO) [Units/volume] in Serum or Plasma [facility] Iron and Iron bindin g capacity panel - Serum or Plasma Iron and TIBC Lab Routine 06/25/2023 7:57 AM EST [facility] Healthcare Lipase [Enzymatic activity/volume] in Serum or Plasma Lipase Lab Routine 06/25/2023 7:57 AM EST [facility] Methylmalonate [Moles/volume] in Serum or Plasma [facility] Patient Education [facility] Work Phone: Patient referral [facility] Work Phone: Thyrotropin [Units/volume] in Serum or Plasma [facility] Thyrotropin [Units/volume] in Serum or Plasma TSH Lab Routine 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) Ordered: 09/17/2024 [facility] [employer] Work Phone: Comment on above: Ordered: 09/17/2024 Ultrasonic guidance for thoracentesis [facility] Ultrasonic guidance for thoracentesis [facility] Immunizations Immunization Date Immunization Notes Care Provider Anjel carver 09-01-2020 Pfizer-BioNTech COVID-19 Vacc 30 MCG/0.3ML Intramuscular Suspension Rylan A Andrea Work Phone: [facility] 07-30-2020 Pfizer-BioNTech COVID-19 Vacc 30 MCG/0.3ML Intramuscular Suspension Rylan A Andrea Work Phone: [facility] 03-24-2020 influenza, injectabl e, quadrivalent, preservative free Rylan A Andrea Work Phone: [facility] 03-24-2020 influenza virus vaccine, unspecified formulation Estela Kojo DO Work Phone: [facility] 03-15-2020 influenza, injectabl e, quadrivalent, preservative free Rylan A Andrea Work Phone: [facility] 02-13-2020 Influenza, High-dose Seasonal, Quadrivalent, [employer] Nilsa Solomon CHARGE ATTENDANT Work Phone: [facility] Payers Date Payer Category Payer Private Health Insurance [id number] 2023 Self-pay [id number] 2023 Medicare (Managed Care) [facility] MEDICARE [id number] 2023 Private Health Insurance [id number] 2021 Medicaid [id number] 2021 Medicare [id number] 2017 Private Health Insurance [id number] 1965 Unknown [id number] 2.16.840.1.146789.3.579.2. 173 1965 Unknown [id number] 2.16.840.1.499668.3.579.2. 356 1965 Unknown [id number] 2.16.840.1.711207.3.579.2. 356 1965 Unknown [id number] 2.16.840.1.241177.3.579.2. 356 1965 Unknown [id number] 2.16.840.1.772227.3.579.2. 593 1965 Unknown [id number] 2.16.840.1.145208.3.579.2. 593 1965 Unknown [id number] 2.16.840.1.820427.3.579.2. 593 1965 Unknown [id number] 2.16.840.1.694446.3.579.2. 593 1965 Unknown [id number] 2.16.840.1.555176.3.579.2. 593 1965 Unknown [id number] 2.16.840.1.467814.3.579.2. 593 1965 Unknown [id number] 2.16.840.1.580207.3.579.2. 593 1965 Unknown [id number] 2.16.840.1.125568.3.579.2. 593 1965 Unknown [id number] 2.16.840.1.252996.3.579.2. 593 1965 Unknown [id number] 2.16.840.1.613192.3.579.2. 1286 1965 Unknown [id number] 2.16.840.1.657193.3.579.2. 1286 1965 Unknown [id number] 2.16.840.1.566946.3.579.2. 1286 1965 Unknown [id number] 2.16.840.1.393421.3.579.2. 1286 1965 Unknown [id number] 2.16.840.1.892775.3.579.2. 1286 1965 Unknown [id number] 2.16.840.1.467841.3.579.2. 727 1965 Unknown [id number] 2.16.840.1.821770.3.579.2. 727 1965 Unknown [id number] 2.16.840.1.102120.3.579.2. 1259 1965 Unknown [id number] 2.16.840.1.298349.3.579.2. 1259 1965 Unknown [id number] 2.16.840.1.081069.3.579.2. 1259 1965 Unknown [id number] 2.16.840.1.097709.3.579.2. 1259 1965 Unknown [id number] 2.16.840.1.571660.3.579.2. 1259 1965 Unknown [id number] 2.16.840.1.098088.3.579.2. 1259 1965 Unknown [id number] 2.16.840.1.685452.3.579.2. 1259 1965 Unknown [id number] 2.16.840.1.319756.3.579.2. 1259 1959 Medicaid [id number] 1959 Medicare [id number] 1959 Private Health Insurance [id number] Private Health Insurance [id number] Unknown Unknown [id number] 2.16.840.1.015032.19 Unknown [id number] 2.16.840.1.820049.3.579.2. 531 Unknown [id number] 2.16.840.1.797693.3.579.2. 531 Social History Date Type Detail Facility Start: 04-13-2023 End: 11-12-2023 Occasional alcohol use Occasional alcohol use [facility] Comment on above: beer; medical marijuana ed ibles; quit 2020 1ppd; Start: 04-11-2023 End: 11-12-2023 Sex Assigned At [facility] Start: 02-27-2022 End: 10-31-2023 Tobacco smoking status [facility] Ex-smoker (finding) [facility] Start: 1965 Sex Assigned At Male [facility] Start: 10-26-2022 End: 12-25-2022 Tobacco smoking status [facility] Never smoked tobacco (finding) [facility] Start: 04-12-2023 Tobacco smoking stat us [facility] Occasional tobacco smoker [facility] History of tobacco use Cigar Smoker [facility] Start: 04-12-2023 End: 10-31-2023 Tobacco use and exposure Smokeless tobacco non-user [facility] Start: 04-13-2023 End: 02-03-2025 Alcohol intake Current drinker of alcohol (finding) [...] to any clubs or organizations such as hoahaoism groups, unions, fraternal or athletic groups, or [...] To some extent [facility] (I/We) worried wheth er (my/our) food [...] a week [facility] Tobacco smoking stat [facility] Tobacco smoking consumption unknown [facility] Start: 07-14-2024 Sex Male (finding) [facility] How often to you hav e [...] Abdominal hernia surgical mesh, synthetic polymer, non-bioabsorbable [id number] FDA Start: 05-10-2020 Insertion of central venous catheter (CVC) with subcutaneous port for chemotherapy Vascular port/catheter [id number] FDA Start: 11-26-2019 Goals Date Patient Goal Desired Activity /State Personal health goal Functional Status Date Assessment Result Facility 01-13-2025 Patient Health Questionnaire 2 item (PHQ-2) [Reported] [facility] 09-15-2024 Total score [AUDIT-C] 3 09/16/19 2:03 PM EDT Cici Kelly MA [facility] 09-15-2024 Patient Health Questionnaire 2 item (PHQ-2) [Reported] [facility] 09-15-2024 PHQ-9 quick depressi on assessment panel [Reported.PHQ] [facility] 06-17-2022 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 [facility] Work Phone: 04-11-2022 Functional status Patient at Baseline [facility] Work Phone: 04-10-2022 Functional status Patient at Baseline [facility] Work Phone: 09-08-2021 PHQ-9 [id number] Delaney andrea (20-27) [facility] 250 DO Work Phone: [facility] Mental Status Date Assessment Result Facility 06-17-2022 Cognitive function Cognitive Sta tus Patient at Baseline [facility] Work Phone: 04-11-2022 Cognitive function Cognitive Sta tus Patient at Baseline [facility] Work Phone: 04-10-2022 Cognitive function Cognitive Sta tus Patient at Baseline [facility] Work Phone: Clinical Notes 11-18-2019 to 02-03-2025 Nilsa Solomon NP - 02/03/2025 11:00 AM Shalini Solomon NP - 01/13/2025 2:00 PM Edilberto Delgado MA - 09/15/2024 2:00 PM Shalini Solomon NP - 09/15/2024 2:00 PM EDT Note Date & Type Note Facility 02-03-2025 History of Presen t illness Narrative Family Medicine Note Subjective: Chief Complaint: ER follow-up HPI: Kirill Echols presents to the office today for emergency room follow-up. The patient was evaluated in the emergency department for chest pain/pressure. He did undergo extensive cardiac work-up in the emergency department and was told to follow-up outpatient for he on going chest discomfort. In office today the patient reports continued chest pressure. When describing his pain, the patient points more toward the right upper quadrant. He has not recently underwent any testing of the abdomen. On chart review he did have and echocardiogram completed last year which showed elevated pressure of the right side of the heart. He is not [...] Given by ER ., Disp: , Rfl: Grfffbgpebc-Pldixxqrc-Scwvzz (Trelegy Ellipta) 100-62.5-25 MCG/ACT aerosol powder , Inhale 1 puff Daily, Disp: 60 each, Rfl: 0 levothyroxine (Synthroid, Levoxyl) 100 MCG tablet, Take 1 tablet (100 mcg) by mouth in the morning. Take before meals., Disp: 30 tablet, Rfl: 5 [...] cramping 04/03/2024 Abdominal pain 11/08/2023 Acute alcoholism ([facility]) 11/08/2023 Acute hypokalemia 11/08/2023 Adenopathy 11/08/2023 Adverse reaction to LUIS inhibitor drug 11/08/2023 Alcoholism ([facility]) 10/2017 [facility] Altered mental status 11/08/2023 Amnesia 11/08/2023 Anemia 11/08/2023 Chemical dependency ([facility]) Chest pain 02/25/2020 NSTEMI Chronic nausea 11/08/2023 [...] 11/08/2023 Pain due to neoplasm 11/08/2023 Pancreatitis ([facility]) 2017 Pneumothorax 11/08/2023 Prostatitis Pyuria 11/08/2023 Recurrent acute pancreatitis ([facility]) Septicemia due to E. coli ([facility]) 01/02/2024 Shortness of breath 11/08/2023 Small cell lung cancer in adult ([facility]) Smoker Suicidal ideation 11/08/2023 Tachycardia 11/08/2023 Thoracostomy [...] 128/60 Pulse: 109 Resp: 16 Temp: 98.4 F TempSrc: Temporal SpO2: 99% Weight: 149 lb [...] Next scheduled follow-up. documented in this encounter [facility] 01-13-2025 History of Presen t illness Narrative [...] this for 10 days. 20 tablet 0 Jltgrwgaofu-Kjccqgqjb-Yymdvh (Trelegy Ellipta) 100-62.5-25 MCG/ACT aerosol powder Inhale [...] Nurse Practitioner (Pulmonary Disease) APOLINAR Brasher as Rectifying Attendant (Family Medicine) Cindy Yeager OD as Referring Physician (Optometry) Ophelia James, (Pulmonary Disease) Medicare Annual Visit Over the [...] Do you have a medical power of delivery and mail sorter?: No Objective : BP 128/72 Pulse 99 [...] pulmonary disease, unspecified COPD type (HCC) - Afyalhnlpfk-Wttqhjctr-Qtdajx (Trelegy Ellipta) 100-62.5-25 MCG/ACT aerosol powder ; [...] January 14, 2025 documented in this encounter [facility] 09-15-2024 History of Presen t illness Narrative [...] 100 mg before bedtime., Disp: , Rfl: Prmdwzmadtt-Yjeyjkqwo-Vbzwbx (Trelegy Ellipta) 100-62.5-25 MCG/ACT aerosol powder , [...] 10 3/uL [facility] CMP (CMP) (FOR REMOTE [facility] USE) Collection Time: 06/19/24 12:54 PM Result Value Ref Range SODIUM 138 136 - 145 mmol/L POTASSIUM 4.8 3.5 - 5.1 mmol/L CHLORIDE 101 98 - 107 mmol/L CARBON DIOXIDE 27.4 21.0 - 32.0 mmol/L ANION GAP 14.4 GLUCOSE 78 74 - 106 mg/dL BLOOD UREA NITROGEN 14.0 7.0 - 18.0 mg/dL CREATININE 1.52 (H) 0.70 - 1.30 mg/dL [facility] EGFR-AF ARMENIAN 57 (L) >=60 mL/min/1.73m 2 [facility] EGFR-NON AF ARMENIAN 47 (L) >=60 mL/min/1.73m 2 BUN CREATININE [...] the morning. as directed., Disp: , Rfl: Igztmtrziki-Qtzbzkjwz-Lslskg (Trelegy Ellipta) 100-62.5-25 MCG/ACT aerosol powder , [...] cramping 04/03/2024 Abdominal pain 11/08/2023 Acute alcoholism ([facility]) 11/08/2023 Acute hypokalemia 11/08/2023 Adenopathy 11/08/2023 Adverse reaction to LUIS inhibitor drug 11/08/2023 Alcoholism ([facility]) 10/2017 [facility] Altered mental status 11/08/2023 Amnesia 11/08/2023 Anemia 11/08/2023 Chemical dependency ([facility]) Chest pain 02/25/2020 NSTEMI Chronic nausea 11/08/2023 Costochondral junction syndrome 12/21/2023 Counseling regarding advanced directives 11/08/2023 Depression with anxiety Diarrhea 11/08/2023 Edema 11/08/2023 Gastrointestinal hemorrhage associated with peptic ulcer Heart disease HTN (hypertension) ([facility]) Hx of small bowel obstruction 04/03/2024 Hyperinflation of lungs Hyponatremia Hyposmolality syndrome 12/21/2023 Hypothyroidism ([facility]) 12/21/2023 Insomnia Internal hemorrhoids Joint pain 11/08/2023 Left inguinal hernia Neck pain 11/08/2023 Pain due to neoplasm 11/08/2023 Pancreatitis 2017 Pneumothorax 11/08/2023 Prostatitis Pyuria 11/08/2023 Recurrent acute pancreatitis Septicemia due to E. coli ([facility]) ([facility]) 01/02/2024 Shortness of breath 11/08/2023 Small cell lung cancer in adult ([facility]) Smoker Suicidal ideation 11/08/2023 Tachycardia 11/08/2023 Thoracostomy [...] agreeable and labs will be sent to [facility]. Pending result he may require adjustment to his levothyroxine. Follow-up: Follow up in about 3 months (around 12/16/2024) for CIM. documented in this encounter [facility] 07-14-2024 Progress note [facility] enter 07-14-2024 Evaluation note Diagnosis Onset Date [...] to chemotherapy inactive July 14, 2024 1:28pm [facility] Work Phone: 1(820) 477-212303-03-2025 History of Present illness Narrative* Karen Fernandez [...] for any new/changing lesions documented in this encounterSaint John's [facility] Community HospitalRgwrtgyezb54-80-4671 History of Present illness Narrative* Karen Fernandez [...] 7 days for s/r documented in this encounterSaint John's Aurora Community HospitalZgcbyzteun84-17-9180 Instructions* Patient Instructions* Marilu Bonner NP - 06/17/2024 3:00 PM [...] Patient understands treatment plan. documented in this encounterSaint John's Aurora Community HospitalTxqigwujot77-45-4753 History of Present illness Narrative* Karen Fernandez [...] for any new/changing lesions documented in this encounterSaint John's Aurora Community HospitalEyulgofeik81-71-4318 History of Present illness Narrative* Marilu Bonner NP - 03/17/2024 2:00 PM EST Images from [...] at the same time., Disp: , Rfl: Hwqjdckojpl-Melfliibo-Fgkmyv (Trelegy Ellipta) 100-62.5-25 MCG/ACT aerosol powder , [...] pulmonary disease, unspecified COPD type (CMS/HCC) - Wiopizbyzsx-Pxjiovvql-Neadhf (Trelegy Ellipta) 100-62.5-25 MCG/ACT aerosol powder ; [...] Next scheduled follow-up: CIM. documented in this encounterSaint John's Aurora Community HospitalNcxhebafkl17-04-0519 Instructions* Patient Instructions* Marilu Bonner NP - [...] Patient understands treatment plan. documented in this encounterSaint John's Aurora Community HospitalXavchzdgdw14-80-5406 History and physical note Author Cathi Miranda [facility] February 18, 2024 12:43pm Note Date/Time February 18, 2024 12 :43pm [facility] [address] [place] [address] Gastroenterology H&P Signed Patient: Kirill Echols MR#: [id number] : 1965 Acct:[id number] Age/Sex: 58 / M Adm Date: 4 Loc: Room: Type: [facility] Attending Dr: Cathi Miranda DO Copies to: [...] signed by Cathi Miranda DO> 02/18/24 1243 [facility] Work Phone: 1(964) 423-296510-07-2024 Procedure [facility]10-07-2024 Procedure [facility]09-23-2024 Instructions* Patient Instructions* Marilu Bonner NP - 02/04/2024 1:20 PM EDT PATIENT EDUCATION: [...] meditation exercises. documented in this encounterSaint John's Aurora Community HospitalHfsctxljmp05-68-5555 History of Present illness Narrative* Marilu Bonner [...] mcg by mouth Daily, Disp: , Rfl: Yezbouykxdh-Rzelgxtoi-Teaiun (Trelegy Ellipta) 100-62.5-25 MCG/ACT aerosol powder , [...] clinically significant. URINE CULTURE, ROUTINE [facility] at[facility] URINE CULTURE, ROUTINE [address], [place] [id number] URINE CULTURE, ROUTINE Cotton Farmworker: Fernando Brand PhD, Phone: [phone] BLOOD CULTURE 1 Collection Time: 12/15/23 5:03 [...] Catch Result Value Ref Range MICRO NUMBER [id number] SPECIMEN QUALITY Adequate SOURCE: (QUEST) URINE, CLEAN [...] for Next scheduled follow-up. documented in this [facility]09-09-2024 Instructions* Patient Instructions* Marilu Bonner NP - [...] history were discussed . documented in this [facility]09-03-2024 Instructions* Patient Instructions* Marilu Bonner NP - [...] be available. documented in this encounterSaint John's Aurora Community HospitalQfyliofyrj03-41-0945 History of Present illness Narrative* Ophelia James, [...] Diagnosis Date Abdominal pain 11/08/2023 Acute alcoholism (CMS/HCC) 11/08/2023 Acute hypokalemia 11/08/2023 Adenopathy 11/08/2023 Adverse reaction to LUIS inhibitor drug 11/08/2023 Alcoholism ([facility]) 10/2017 [facility] Altered mental status 11/08/2023 Amnesia 11/08/2023 Anemia 11/08/2023 Chemical dependency ([facility]) Chest pain 02/25/2020 NSTEMI Chronic nausea 11/08/2023 Costochondral junction syndrome 12/21/2023 Counseling regarding advanced directives 11/08/2023 Depression with anxiety Diarrhea 11/08/2023 Edema 11/08/2023 Gastrointestinal hemorrhage associated with peptic ulcer Heart disease HTN (hypertension) ([facility]) Hyperinflation of lungs Hyponatremia Hyposmolality syndrome 12/21/2023 Hypothyroidism ([facility]) 12/21/2023 Insomnia Internal hemorrhoids Joint pain 11/08/2023 Left inguinal hernia Neck pain 11/08/2023 Pain due to neoplasm 11/08/2023 Pancreatitis 2017 Pneumothorax 11/08/2023 Prostatitis Pyuria 11/08/2023 Recurrent acute pancreatitis Septicemia due to E. coli ([facility]) ([facility]) 01/02/2024 Shortness of breath 11/08/2023 Small cell lung cancer in adult ([facility]) Smoker Suicidal ideation 11/08/2023 Tachycardia 11/08/2023 Thoracostomy [...] James DO documented in this encounterSaint John's Aurora Community HospitalEtampccxag92-82-9656 History of Present illness Narrative* Rylan Andrea [...] clinically significant. URINE CULTURE, ROUTINE [facility]formed at: [facility] URINE CULTURE, ROUTINE [address] [place] [id number] URINE CULTURE, ROUTINE Cotton Farmworker: Fernando Brand PhD, Phone: [phone] BLOOD CULTURE 1 Collection Time: 12/15/23 5:03 [...] No follow-ups on file. documented in this encounterSaint John's Aurora Community HospitalAyaccdrklv66-14-5112 History of Present illness Narrative* Ryan Kang, - 12/21/2023 3:57 PM EDT Images from the original note were not included. Patient Name: Kirill Echols Date of : 1965 Date of Service: 12/21/2023 Facility: [facility] Type of Visit: Admission H&P Subjective Kirill Echols is a 58 y.o. male seen today at [facility] facility for admission H&P. Kirill presents for [...] alone at home. His got transferred to [place] with her job but will be back in 13 months. Past Medical History: Diagnosis Date Personal history of malignant neoplasm of bronchus and lung Septicemia due to E. coli ([facility]) No past surgical history on file. No [...] kg/m Physical Exam Exam conducted with a mathematical scientist present (Abdelrahman Mohan MS III). Constitutional: General: [...] 2. Small cell lung cancer in adult ([facility]) 3. Essential hypertension 4. Adult failure to thrive 5. Costochondral junction syndrome 6. Hyposmolality syndrome 7. Severe episode of recurrent major depressive disorder, without psychotic features ([facility]) 8. Insomnia, unspecified type 9. Hypothyroidism, unspecified type Admit to [facility] for therapies. Continue medications from hospital, antibiotic. I'm going to restart oxycodone 5mg 1 Q8hrs prn pain. He is in obvious pain. Risks and benefits of opioid tx discussed. He is agreeable to start. He cannot take NSAIDs due to CKD/ATN. Therapy evaluation. Full code. Good rehab potential with plans to go home. ELECTRONICALLY SIGNED BY: Ryan Kang DO [facility] History of Present illness Narrative* Rylan Andrea MD - 04/05/2023 8:01 PM EST Subjective Patient ID: Kirill Echols is a 57 y.o. male who presents for No chief complaint on file.. HPI Review of Systems Objective Physical Exam Assessment/Plan documented in this encounterSaint John's Aurora Community HospitalXqpamyrkel51-18-7371 Progress note Author Yoselin Shane [facility] November 07, 2022 11:50am Note Date/Time November 01, 2022 11:0 6am [facility] at [address] [address] Hem/Onc Follow Up Note - OP Signed with Addenda Patient: Kirill Echols MR#: [id number] : 1965 Acct:[id number] Age/Sex: 57 / M Type: REG RCR Copies to: MD Rylan Vega MD Timothy J Adamowicz, II, DO~ ADDENDUM1 Will initiate monthly B12 injections for B12 deficiency, as well as folic acid 1mg po daily for folate deficiency. Addendum Dictated By: ERINN Yoselin Barcenas Garylauren Addendum Signed By: 11/07/221149 Addendum Cosigned By: [...] nothing really new going on. HPI: 54-year-old -Gambian gentleman history of smoking 40 pack years [...] overwhelming for recurrence. He lives alone in [place]. His children live in [place]. His left him 8 months ago and [...] and urinary tract. Otherwise, there is an Duvkuw-c-Dune on the left. The lungs demonstrate emphysematous [...] appointment after ER visit at [facility] on August 29, 2022 He [...] for coordination of care (as documented) and zelm-yi-qdru counseling of patient and/or family. [facility] - Medical History Medical History: Medical [...] 11/18/19 12:21 Freq: Status: Complete Protocol: Document 07/07/20 12:56 AA (Rec: 11/18/19 12:58 AA [facility]-01) Distress Screening Distress Score: 10 Worst distress/worry Emotional Concerns Feeling uncertain about the future Distress Screening Total 10 Distress score of 4 or more discussed Yes with patient? RN Distress Screening Start: 11/24/19 08:55 Freq: Q30D Status: Active Protocol: Document 03/01/22 15:44 KB (Rec: 03/01/22 15:45 KB [id number]) Distress Screening Distress score of 4 or [...] % (Auto) 69.5, Lymph % (Auto) 15.0, [place] % (Auto) 12.1, Eos % (Auto) 2.6, Baso % (Auto) 0.8, Nucleat RBC Rel Count 0.2, Neut # (Auto) 4.1, Lymph # (Auto) 0.9 L, [place] # (Auto) 0.7, Eos # (Auto) 0.1, [...] <Electronically signed by ERINN Shane> 11/07/22 1149 [facility] Work Phone: 1(507) 303-769305-23-2023 Hospital Discharge instructionsAmbulatory Orders* Initiate Home Health Time Frame: 1 Day, Location: Determined By Patient * Oncology Histology Time Frame: 10/03/22, Location: Determined By Patient * Oncology Histology Time Frame: 10/17/22, Location: Determined By Patient * Oncology Histology Time Frame: 10/10/22, Location: Determined By Patient [facility] Work Phone: 1(463) 128-249805-09-2023 Progress note Author Estela Varma [facility] September 19, 2022 10:02am Note Date/Time September 19, 2022 9:50am [facility] at [address] [address] Hem/Onc Follow Up Note - OP Signed Patient: Kirill Echols MR#: [id number] : 1965 Acct:[id number] Age/Sex: 57 / M Type: REG RCR [...] Weight loss Follow Up Instructions: f/u wth CHARGE ATTENDANT in 6 weeks, cbc, cmp b12, folate, [...] concerns voiced at this time. HPI: 54-year-old -Gambian gentleman history of smoking 40 pack years [...] overwhelming for recurrence. He lives alone in [place]. His children live in [place]. His left him 8 months ago and [...] and urinary tract. Otherwise, there is an Ckxqog-i-Zxzf on the left. The lungs demonstrate emphysematous [...] appointment after ER visit at [facility] on August 29, 2022 He [...] for coordination of care (as documented) and argt-dj-aqgc counseling of patient and/or family. [facility] - Medical History Medical History: Medical [...] 03/01/22 15:44 KB (Rec: 03/01/22 15:45 KB [id number]) Distress Screening Distress score of 4 or [...] signed by Estela Varma II, DO> 09/19/[address] [place] [address] Ctr Work Phone: 1(211) 825-588604-24-2023 Progress note Author Dixie Olivia [facility] September 04, 2022 12:17pm Note Date/Time September 04, 2022 12: 04pm [facility] [place] [address] Hem/Onc Follow Up Note - OP Signed Patient: Kirill Echols MR#: [id number] : 1965 Acct:[id number] Age/Sex: 57 / M Type: REG RCR Copies to: MD Rylan Vega MD~ Subjective Date/Time of Service: Date of Service: 09/04/2022 Time of Service: 11:56 Chief Complaint: Patient is here today for a follow up visit for small cell lung cancer. He went to [place] ER for chest pressure 08-27-[address] scan for review HPI: 54-year-old -G[place]ian gentleman history of smoking 40 pack years [...] overwhelming for recurrence. He lives alone in [place]. His children live in [place]. His left him 8 months ago and [...] and urinary tract. Otherwise, there is an Tgjvvv-j-Fxke on the left. The lungs demonstrate emphysematous [...] He is considering moving back down to [facility] where he is from. [...] appointment after ER visit at [facility] on August 29, 2022 He [...] Narrative: Residual and chronic left-sided chest complaints. [facility] - Medical History Medical History: Medical [...] 03/01/22 15:44 KB (Rec: 03/01/22 15:45 KB [id number]) Distress Screening Distress score of 4 or [...] health is draining this...next follow up with Mukund next week. - pleural fluid is negative [...] appointment after ER visit at [facility] on August 29, 2022 He [...] today to home health care nurse at [facility]. 3.) Follow up with Dr. Varma [...] for coordination of care (as documented) and kigu-vb-bihd counseling of patient and/or family. Dictated By: Dixie Olivia APRN DD/ 1156 Signed By: <Electronically signed by ERINN Olivia> 09/04/22 1217 [facility] Work Phone: 1([phone]) 469-829802-09-2023 Progress note Author Dixie Olivia [facility] June 22, 2022 2:24pm Note Date/Time June 22, 2022 2 :16pm [facility] [place] [address] Hem/Onc Follow Up Note - OP Signed Patient: Kirill Echols MR#: [id number] : 1965 Acct:[id number] Age/Sex: 57 / M Type: REG RCR Copies to: MD Rylan Vega MD~ Subjective Date/Time of Service: Date of Service: 06/22/2022 Time of Service: 14:09 Chief Complaint: Patient is here for a 2 month follow up with, had chest tube placed 06/16/2022. No concerns voiced at this time. HPI: 54-year-old -G[place]ian gentleman history of smoking 40 pack years [...] overwhelming for recurrence. He lives alone in [place]. His children live in [place]. His left him 8 months ago and [...] and urinary tract. Otherwise, there is an Zqddpy-w-Ebrp on the left. The lungs demonstrate emphysematous [...] He is considering moving back down to [facility] where he is from. [...] observation. it was very reproducible. persists today /[address] irene has offered to perform [...] diaphoresis. No orthostasis or dizziness or palpitations. [facility] - Medical History Medical History: Medical [...] 03/01/22 15:44 KB (Rec: 03/01/22 15:45 KB [id number]) Distress Screening Distress score of 4 or [...] for coordination of care (as documented) and otkz-de-ggxg counseling of patient and/or family. Dictated By: Dixie Olivia APRN DD/ 1409 Signed By: <Electronically signed by ERINN Olivia> 06/22/22 142 [facility] Work Phone: [phone]) 974-581202-02-2023 Evaluation note* Encounter Date Diagnosis Assessment Notes [...] cell carcinoma of lung (ICD-10 - C34.90) [facility] Other 01-18-2023 Evaluation note* Encounter Date Diagnosis Assessment Notes Treatment Notes Treatment Clinical Notes May, Small cell carcinoma of lung (ICD-10 - C34.90) Please let me know lung CT scan to review schedule thoracentesis if needed May, Chronic obstructive pulmonary disease, unspecified COPD type (ICD-10 - J44.9) May, Shortness of breath (ICD-10 - R06.02) May, Pleural effusion (ICD-10 - J90) [facility] Other 12-02-2022 Progress note Author Estela Varma [facility] April 14, 2022 12:02pm Note Date/Time April 14, 2022 1 1:50am [facility] [place] [address] Hem/Onc Follow Up Note - OP Signed Patient: Kirill Echols MR#: [id number] : 1965 Acct:[id number] Age/Sex: 56 / M Type: REG RCR [...] concerns voiced at this time. HPI: 54-year-old -Gambian gentleman history of smoking 40 pack years [...] overwhelming for recurrence. He lives alone in [place]. His children live in [place]. His left him 8 months ago and [...] and urinary tract. Otherwise, there is an Tgzlto-u-Zhgm on the left. The lungs demonstrate emphysematous [...] He is considering moving back down to [facility] where he is from. [...] for coordination of care (as documented) and onhl-yh-shlq counseling of patient and/or family. [facility] - Medical History Medical History: Medical [...] 03/01/22 15:44 KB (Rec: 03/01/22 15:45 KB [id number]) Distress Screening Distress score of 4 or [...] % (Auto) 71.4, Lymph % (Auto) 16.2, [place] % (Auto) 8.6, Eos % (Auto) 2.9, Baso % (Auto) 0.9, Neut # (Auto) 4.5, Lymph # (Auto) 1.0, [place] # (Auto) 0.5, Eos# (Auto) 0.2, Baso [...] by Estela Varma II, DO> 04/14/22 1202 [facility] Work Phone: 1([phone] 201-968610-17-2022 Progress note Author Estela Varma [facility] February 27, 2022 2:56pm Note Date/Time February 27, 2022 2 :51pm [facility] [place] [address] Hem/Onc Follow Up Note - OP Signed Patient: Kirill Echols MR#: [id number] : 1965 Acct:[id number] Age/Sex: 56 / M Type: REG RCR [...] for review. No concerns voiced. HPI: 54-year-old -G[place]ian gentleman history of smoking 40 pack years [...] overwhelming for recurrence. He lives alone in [place]. His children live in [place]. His left him 8 months ago and [...] and urinary tract. Otherwise, there is an Zaaxuy-f-Dwpm on the left. The lungs demonstrate emphysematous [...] He is considering moving back down to [facility] where he is from. [...] for coordination of care (as documented) and xpgt-cq-ypta counseling of patient and/or family. [facility] - Medical History Medical History: Medical [...] 09/14/21 14:56 KB (Rec: 09/14/21 14:59 KB [id number]) Distress Screening Distress score of 4 or more discussed Yes with patient? Distress screening follow up: Spoke with patient via phone. Patient is doing ok at this time. Recently had a heart cath which was negative. He is happpy that his scans are good. Dr. Perez is working on getting him into [facility]. - Lab Results Diagram of Most [...] by Estela Varma II, DO> 02/27/22 1456 [facility] Work Phone: [phone] Evaluation note* Encounter Date Diagnosis Assessment Notes [...] Dr. Andrea to discuss plan of care. [facility] Other 04-25-2022 Progress note Author Estela Varma [facility] September 05, 2021 6:32pm Note Date/Time September 05, 2021 12: 28pm [facility] [place] [address] Hem/Onc Follow Up Note - OP Signed Patient: Kirill Echols MR#: [id number] : 1965 Acct:[id number] Age/Sex: 56 / M Type: REG RCR [...] concerns voiced at this time. HPI: 54-year-old -G[place]ian gentleman history of smoking 40 pack years [...] overwhelming for recurrence. He lives alone in [place]. His children live in [place]. His left him 8 months ago and [...] and urinary tract. Otherwise, there is an Pgwjew-f-Jxbw on the left. The lungs demonstrate emphysematous [...] He is considering moving back down to [facility] where he is from. [...] for coordination of care (as documented) and gljt-yh-gqqs counseling of patient and/or family. [facility] - Medical History Medical History: Medical [...] 02/02/21 13:22 KB (Rec: 02/02/21 13:23 KB [id number]) Distress Screening Distress score of 4 or [...] % (Auto) 69.0, Lymph % (Auto) 18.2, [place] % (Auto) 7.9, Eos % (Auto) 4.2, Baso % (Auto) 0.7, Neut # (Auto) 3.5, Lymph # (Auto) 0.9 L, [place] # (Auto) 0.4, Eos # (Auto) 0.2, [...] signed by Estela Varma II, DO> 09/05/21 8292 [facility] Work Phone: [phone] 504-468904-11-2022 Progress note Author Estela Varma [facility] August 22, 2021 3:19pm Note Date/Time August 22, 2021 2:5 3pm [facility] [place] [id number] Hem/Onc Follow Up Note - OP Signed Patient: Kirill Echols MR#: [id number] : 1965 Acct:[id number] Age/Sex: 56 / M Type: REG RCR [...] been having shortness of breath HPI: 54-year-old -Gambian gentleman history of smoking 40 pack years [...] overwhelming for recurrence. He lives alone in [place]. His children live in [place]. His left him 8 months ago and [...] for coordination of care (as documented) and slcv-jc-pfqv counseling of patient and/or family. [facility] - Medical History Medical History: Medical [...] 02/02/21 13:22 KB (Rec: 02/02/21 13:23 KB [id number]) Distress Screening Distress score of 4 or [...] % (Auto) 62.5, Lymph % (Auto) 20.1, [place] % (Auto) 11.9, Eos % (Auto) 4.8, Baso % (Auto) 0.7, Neut # (Auto) 3.0, Lymph # (Auto) 1.0, [place] # (Auto) 0.6, Eos # (Auto) 0.2, [...] Dictated By: Estela Varma II, DO DD/ 6769 Signed By: <Electronically signed by Estela Varma II, DO> 08/22/21 5917 [facility] Work Phone: [phone]) 291-270911-23-2021 Progress note Author George Ash [facility] April 05, 2021 12:34pm Note Date/Time April 05, 2021 12:28pm [facility] at [address] [address] Hem/Onc Follow Up Note - OP Signed Patient: Kirill Echols MR#: [id number] : 1965 Acct:[id number] Age/Sex: 55 / M Type: REG RCR [...] has seen cardiology and was evaluated in [place] including a stress test. Nothing ever came [...] diaphoresis. No orthostasis or dizziness or palpitations. [facility] - Medical History Medical History: Medical [...] 02/02/21 13:22 KB (Rec: 02/02/21 13:[id number]) Distress Screening Distress score of 4 or [...] % (Auto) 74.7, Lymph % (Auto) 11.7, [place] % (Auto) 10.3, Eos % (Auto) 2.5, Baso % (Auto) 0.8, Neut # (Auto) 6.1, Lymph # (Auto) 1.0, [place] # (Auto) 0.9H, Eos # (Auto) 0.2, [...] had extensive work-up in the past in [place] including stress test. He has seen cardiology. [...] for coordination of care (as documented) and dqsy-he-ocbt counseling of patient and/or family. Dictated By: George Ash MD DD/ 1227 Signed By: <Electronically signed by MD George Ash> 04/05/21 1234 [facility] Work Phone: [phone] Progress note Author George Ash [facility] February 08, 2021 11:42am Note Date/Time February 08, 2021 11:41am [facility] at [address] [address] Hem/Onc Follow Up Note - OP Signed Patient: Kirill Echols MR#: [id number] : 1965 Acct:[id number] Age/Sex: 55 / M Type: REG R Copies to: [...] & no additional complaints except as documented [facility] - Medical History Medical History: Medical [...] for coordination of care (as documented) and bnns-iz-hnqe counseling of patient and/or family. Dictated By: George Ash MD DD/ 1140 Signed By: <Electronically signed by MD George Ash> 02/08/21 1142 [facility] Work Phone: [phone] Progress note Author George Ash [facility] February 01, 2021 11:20am Note Date/Time February 01, 2021 11:19am [facility] [place] [address] Hem/Onc Follow Up Note - OP Signed Patient: Kirill Echols MR#: [id number] : 1965 Acct:[id number] Age/Sex: 55 / M Type: REG RCR Copies to: MD Rylan Vega MD~ Subjective Date/Time of Service: Date of Service: 02/01/2021 Time of Service: 11:16 Chief Complaint: Patient is here today d/t pain and numbness left side of chest radiates to back. He has been to [facility] and [facility], He went to his family doctor [...] & no additional complaints except as documented [facility] - Medical History Medical History: Medical [...] % (Auto) 76.8, Lymph % (Auto) 13.5, [place] % (Auto) 7.5, Eos % (Auto) 1.4, Baso % (Auto) 0.8, Neut # (Auto) 5.1, Lymph # (Auto) 0.9 L, [place] # (Auto) 0.5, Eos # (Auto) 0.1, [...] for coordination of care (as documented) and yuru-qq-wtxn counseling of patient and/or family. Dictated By: George Ash MD DD/ 1116 Signed By: <Electronically signed by MD George Ash> 02/01/21 1120 [facility] Work Phone: 1(166) [phone] Progress note Author George Ash [facility] December 07, 2020 11:02am Note Date/Time December 07, 2020 10:4 0am [facility] [place] [id number] Hem/Onc Follow Up Note - OP Signed Patient: Kirill Echols MR#: [id number] : 1965 Acct:[id number] Age/Sex: 55 / M Type: REG RCR [...] RIGHT supraclavicular region. These may be field representatives director of metastatic lymph nodes. There is focus [...] % (Auto) 71.8, Lymph % (Auto) 12.7, [place] % (Auto) 10.8, Eos % (Auto)3.9, Baso % (Auto) 0.8, Neut # (Auto) 4.8, Lymph # (Auto) 0.9 L, [place] # (Auto) 0.7, Eos # (Auto) 0.3, [...] for coordination of care (as documented) and vftz-vb-eida counseling of patient and/or family. Dictated By: George Ash MD DD/ 1039 Signed By: <Electronically signed by MD George Ash> 12/07/20 1108 [facility] Work Phone: [phone] Progress note Author Santhosh Chan [facility] September 09, 2020 11:30am Note Date/Time September 09, 2020 11: 21am [facility] [place] [address] Hem/Onc Follow Up Note - OP Signed Patient: Kirill Echols MR#: [id number] : 1965 Acct:[id number] Age/Sex: 55 / M Type: REG RCR [...] & no additional complaints except as documented [facility] - Medical History Medical History: Medical [...] for coordination of care (as documented) and elaj-qv-zfgx counseling of patient and/or family. Dictated By: Santhosh Chan MD DD/ 1118 Signed By: <Electronically signed by Santhosh Chan MD> 09/09/20 1130 [facility] Work Phone: [phone]) 668-686404-22-2021 Progress note Author Santhosh Chan [facility] September 02, 2020 11:55am Note Date/Time September 02, 2020 11: 53am [facility] [place] [address] Hem/Onc Follow Up Note - OP Signed Patient: Kirill Echosl MR#: [id number] : 1965 Acct:[id number] Age/Sex: 55 / M Type: REG RCR [...] for coordination of care (as documented) and hpoo-az-nstm counseling of patient and/or family. Dictated By: Santhosh Chan MD DD/ 50 Signed By: <Electronically signed by Santhosh Chan MD> 09/02/20 4800 [facility] Work Phone: [phone] Progress note Author Santhosh Chan [facility] July 06, 2020 1:19pm Note Date/Time July 06, 2020 1:17pm [facility] [place] [address] Hem/Onc Follow Up Note - OP Signed Patient: Kirill Echols MR#: [id number] : 1965 Acct:[id number] Age/Sex: 55 / M Type: REG RCR [...] % (Auto) 65.3, Lymph % (Auto) 17.0, [place] % (Auto) 13.4, Eos % (Auto) 3.8, Baso % (Auto) 0.5, Neut # (Auto) 2.9, Lymph # (Auto) 0.7 L, [place] # (Auto) 0.6, Eos # (Auto) 0.2, [...] the process of transitioning her practice to [facility]. (4) Anxiety - Time with Patient Time Spent with Patient (Follow Up Visit): 25 minutes, 35 minutes Coordination of Care & Counseling Time: Greater than 50% of time spent with patient was for coordination of care (as documented) and nkss-no-igsx counseling of patient and/or family. Dictated By: Santhosh Chan MD DD/ 15 Signed By: <Electronically signed by Santhosh Chan MD> 07/06/20 1319 [facility] Work Phone: 1([phone]) 721-132002-02-2021 Progress note Author Santhosh Chan [facility] June 15, 2020 4:23pm Note Date/Time June 15, 2020 3 :28pm [facility] [place] [address] Hem/Onc Follow Up Note - OP Signed Patient: Kirill Echols MR#: [id number] : 1965 Acct:[id number] Age/Sex: 55 / M Type: REG RCR [...] % (Auto) 57.8, Lymph % (Auto) 19.4, [place] % (Auto) 16.6, Eos % (Auto) 5.5, Baso % (Auto) 0.7, Neut # (Auto) 2.1, Lymph # (Auto) 0.7 L, [place] # (Auto) 0.6, Eos # (Auto) 0.2, [...] the process of transitioning her practice to [facility]. -OARRS reviewed, no concern. Refill prescription of 2 weeks of oxycodone IR 10 mg (down from 15 mg)x56 provided today (taken 6-hour as needed). (3) Anxiety - Time with Patient Time Spent with Patient (Follow Up Visit): 35 minutes Coordination of Care & Counseling Time: Greater than 50% of time spent with patient was for coordination of care (as documented) and wded-oe-ylot counseling of patient and/or family. Dictated By: Santhosh Chan MD DD/ 1528 Signed By: <Electronically signed by Santhosh Chan MD> 06/15/20 7244 [facility] Work Phone: [phone]) [phone] Progress note Author George Lalitkarissa [facility] April 06, 2020 3:03pm Note Date/Time April 06, 2020 3:00pm [facility] [place] [address] Hem/Onc Follow Up Note - OP Signed Patient: Kirill Echols MR#: [id number] : 1965 Acct:[id number] Age/Sex: 54 / M Type: REG RCR [...] PET scan. Patient: Kirill Echols MR#: [id number] : 1965 Acct:[id number] Age/Sex: 54 / M ADM Date: 0 Loc: XT [facility]: [facility] Dr: George Ash MD Ordering Provider: George Ash MD Date of Service: 03/23/20 CT/CT chest w con: restaging,C34.90 ([id number]) CT/CT abdomen pelvis w con: restaging,C34.90 Copies [...] proximal great vessels. Patient has a left-sided Etuzsy-d-Bnlc catheter. There is continued ill-defined soft tissue [...] the findings below: Patient: Kirill Echols MR#: [id number] : 1965 Acct:[id number] Age/Sex: 54 / M ADM Date: 0 Loc: Room: Type: [facility] Attending Dr: Varghese Duval MD Ordering Provider: Varghese Duavl MD Date of Service: 10/31/19 PET/PET tumor [...] RIGHT supraclavicular region. These may be field representatives director of metastatic lymph nodes. There is focus [...] Franklin Gomes M.D.10/31/2019 2:44 PM Dictation Location: [facility] The patient was seen by Dr. James and evaluated by Dr. Duval. 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 PMF - Medical History Medical History: Medical [...] for coordination of care (as documented) and mtyk-sa-zgta counseling of patient and/or family. Dictated By: George Ash MD DD/ 9465 Signed By: <Electronically signed by MD George Ash> 04/06/20 2759 [facility] Work Phone: [phone] Progress note Author George Ash [facility] March 02, 2020 11:39am Note Date/Time March 02, 2020 1 1:38am [facility] [place] [address] Hem/Onc Follow Up Note - OP Signed Patient: Kirill Echols MR#: [id number] : 1965 Acct:[id number] Age/Sex: 54 / M Type: REG RCR [...] the findings below: Patient: Kirill Echols MR#: [id number] : 1965 Acct:[id number] Age/Sex: 54 / M ADM Date: 0 Loc: Room: Type: [facility] Attending Dr: Varghese Duval MD Ordering Provider: [...] RIGHT supraclavicular region. These may be field representatives director of metastatic lymph nodes. There is focus [...] M.D.10/31/2019 2:44 PM Dictation Location: [facility] The patient was seen by Dr. James and evaluated by Dr. Duval. 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 PMF - Medical History Medical History: Medical [...] Neut % (Auto)79.5, Lymph % (Auto) 9.8, [place] % (Auto) 8.4, Eos % (Auto) 1.7, Baso % (Auto) 0.6, Neut # (Auto) 6.1, Lymph # (Auto) 0.8 L, [place] # (Auto) 0.6, Eos # (Auto) 0.1, [...] % (Auto) N/A, Lymph % (Auto) N/A, [place] % (Auto) N/A, Eos % (Auto) N/A, Baso % (Auto) N/A, Neut # (Auto) N/A, Lymph # (Auto) N/A, [place] # (Auto) N/A, Eos # (Auto) N/A, [...] for coordination of care (as documented) and miyl-xy-bdmw counseling of patient and/or family. Dictated By: George Ash MD DD/ 34 Signed By: <Electronically signed by MD George Ash> 03/02/20 1139 [facility] Work Phone: [phone] Progress note Author Leoncio Kowalski [facility] February 25, 2020 3:54pm Note Date/Time February 25, 2020 2 :49pm [facility] [place] [address] Rad Onc Follow Up Note - OP Signed Patient: Kirill Echols MR#: [id number] : 1965 Acct:[id number] Age/Sex: 54 / M Type: REG RCR Copies to: MD Rylan Vega MD James E Fanning, MD~ Subjective - Service Date/Time Date: 02/25/20 Time: 14:49 - Diagnosis 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 He has chronic [...] signed by Leoncio Kowalski MD> 02/25/20 1554 [facility] Work Phone: [phone] Progress note Author George Ash [facility] February 10, 2020 1:23pm Note Date/Time February 10, 2020 1:20pm [facility] [place] [address] Hem/Onc Follow Up Note - OP Signed Patient: Kirill Echols MR#: [id number] : 1965 Acct:[id number] Age/Sex: 54 / M Type: REG RCR [...] the findings below: Patient: Kirill Echols MR#: [id number] : 1965 Acct:[id number] Age/Sex: 54 / M ADM Date: 0 Loc: Room: Type: [facility] Attending Dr: Varghese Duval MD Ordering Provider: [...] RIGHT supraclavicular region. These may be field representatives director of metastatic lymph nodes. There is focus [...] Franklin Gomes M.D.10/31/2019 2:44 PM Dictation Location: [facility] The patient was seen by Dr. James and evaluated by Dr. Duval. 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 [facility] - Medical History Medical History: Medical [...] % (Auto) 71.8, Lymph % (Auto) 16.0, [place] % (Auto) 10.5, Eos % (Auto) 0.9, Baso % (Auto) 0.8, Neut # (Auto) 4.8, Lymph # (Auto) 1.1, [place] # (Auto) 0.7, Eos # (Auto) 0.1, Baso # (Auto) 0.1, Nucleated RBC % (auto) 0.1 02/04/20 08:35: WBC 13.5 H, Corrected WBC 13.5 H, RBC 3.87 L, Hgb 12.3 L, Hct 38.1 L, MCV 98.6, MCH 31.7, MCHC 32.2 L, RDW 21.3 H, Plt Count 264, MPV 7.4, Neut % (Auto) 72.3, Lymph % (Auto) 7.8, [place] % (Auto) 18.7, Eos % (Auto) 0.3, Baso % (Auto) 0.9, Neut # (Auto) 9.7 H, Lymph # (Auto) 1.1, [place] # (Auto) 2.5 H,Eos # (Auto) 0.0, [...] for coordination of care (as documented) and esiq-kj-blrq counseling of patient and/or family. Dictated By: George Ash MD DD/ 1319 Signed By: <Electronically signed by MD George Ash> 02/10/20 1323 [facility] Work Phone: [phone] Progress note Author George Ash [facility] January 20, 2020 11:30am Note Date/Time January 20, 2020 11:28am [facility] [place] [id number] Hem/Onc Follow Up Note - OP Signed Patient: Kirill Echols MR#: [id number] : 1965 Acct:[id number] Age/Sex: 54 / M Type: REG RCR [...] on pro which I did add today. [facility] is following him now for palliative pain control and this is clearly better. He is off of steroids. His synovitis and arthritis have resolved. [facility] - Medical History Medical History: Medical [...] mg PO DAILY 10 Days #10 tab 08/13/20 [Rx] Magic Mouth Wash 10 ml PO [...] for coordination of care (as documented) and jsdf-dx-xzrb counseling of patient and/or family. Dictated By: George Ash MD DD/ 1127 Signed By: <Electronically signed by MD George Ash> 01/20/20 1130 [facility] Work Phone: [phone] Progress note Author George Ash [facility] December 30, 2019 10:35am Note Date/Time December 30, 2019 10 :01am [facility] [place] [address] Hem/Onc Follow Up Note - OP Signed Patient: Kirill Echols MR#: [id number] : 1965 Acct:[id number] Age/Sex: 54 / M Type: REG RCR [...] I have instructed him to get some qkyo-cka-fihxihh Prilosec for this. He has some type [...] the findings below: Patient: Kirill Echols MR#: [id number] : 1965 Acct:[id number] Age/Sex: 54 / M ADM Date: 0 Loc: Room: Type: [facility] Attending Dr: Varghese Duval MD Ordering Provider: Varghese Duval MD Date of Service: 10/31/19 PET/PET tumor init tx kaylyn sb-mt: R91.1 R91.8 R59.1 Copies to: MD [...] RIGHT supraclavicular region. These may be field representatives director of metastatic lymph nodes. There is focus [...] Franklin Gomes M.D.10/31/2019 2:44 PM Dictation Location: [facility] The patient was seen by Dr. James and evaluated by Dr. Duval. 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 [facility] - Medical History Medical History: Medical [...] % (Auto) N/A, Lymph % (Auto) N/A, [place] % (Auto) N/A, Eos % (Auto) N/A, Baso % (Auto) N/A, Neut # (Auto) N/A, Lymph # (Auto) N/A, [place] # (Auto) N/A, Eos # (Auto) N/A, [...] for coordination of care (as documented) and klou-yr-tfrh counseling of patient and/or family. Dictated By: George Ash MD DD/ 0959 Signed By: <Electronically signed by MD George Ash> 12/30/19 1240 [facility] Work Phone: [phone] Progress note Author George Ash [facility] December 23, 2019 10:25am Note Date/Time December 23, 2019 10 :18am [facility] [place] [address] Hem/Onc Follow Up Note - OP Signed Patient: Kirill Echols MR#: [id number] : 1965 Acct:[id number] Age/Sex: 54 / M Type: REG RCR [...] the findings below: Patient: Kirill Echols MR#: [id number] : 1965 Acct:[id number] Age/Sex: 54 / M ADM Date: 0 Loc: Room: Type: [facility] Attending Dr: Varghese Duval MD Ordering Provider: [...] RIGHT supraclavicular region. These may be field representatives director of metastatic lymph nodes. There is focus [...] Franklin Gomes M.D.10/31/2019 2:44 PM Dictation Location: [facility] The patient was seen by Dr. James and evaluated by Dr. Duval. 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 [facility] - Medical History Medical History: Medical [...] for coordination of care (as documented) and gefd-of-ulig counseling of patient and/or family. Dictated By: George Ash MD DD/ 1015 Signed By: <Electronically signed by MD George Ash> 12/23/19 1025 [facility] Work Phone: [phone] Progress note Author George Ash [facility] December 16, 2019 11:08am Note Date/Time December 16, 2019 11: 01am [facility] [place] [id number] Hem/Onc Follow Up Note - OP Signed Patient: Kirill Echols MR#: [id number] : 1965 Acct:[id number] Age/Sex: 54 / M Type: REG RCR [...] the findings below: Patient: Kirill Echols MR#: [id number] : 1965 Acct:[id number] Age/Sex: 54 / M ADM Date: 0 [...] RIGHT supraclavicular region. These may be field representatives director of metastatic lymph nodes. There is focus [...] Franklin Gomes M.D.10/31/2019 2:44 PM Dictation Location: [facility] The patient was seen by Dr. James and evaluated by Dr. Duval. 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 [facility] - Medical History Medical History: Medical [...] % (Auto) 33.7, Lymph % (Auto) 41.5, [place] % (Auto) 21.4, Eos % (Auto) 2.0, Baso % (Auto) 1.4, Neut # (Auto) 1.6 L, Lymph # (Auto) 1.9, [place] # (Auto) 1.0 H, Eos # (Auto) [...] % (Auto) 21.1, Lymph % (Auto) 51.6, [place] % (Auto) 24.2, Eos % (Auto) 1.9, Baso % (Auto) 1.2, Neut # (Auto) 0.5 L, Lymph # (Auto) 1.3, [place] # (Auto) 0.6, Eos # (Auto) 0.0, [...] for coordination of care (as documented) and oehf-zo-yqnr counseling of patient and/or family. Dictated By: George sAh MD DD/ 1059 Signed By: <Electronically signed by MD George Ash> 12/16/19 1108 [facility] Work Phone: [phone] Progress note Author George Ash [facility] December 09, 2019 11:13am Note Date/Time December 09, 2019 11:1 1am [facility] [place] [address] Hem/Onc Follow Up Note - OP Signed Patient: Kirill Echols MR#: [id number] : 1965 Acct:[id number] Age/Sex: 54 / M Type: REG RCR [...] the findings below: Patient: Kirill Echols MR#: [id number] : 1965 Acct:[id number] Age/Sex: 54 / M ADM Date: 0 Loc: Room: Type: [facility] Attending Dr: Varghese Duval MD Ordering Provider: [...] RIGHT supraclavicular region. These may be field representatives director of metastatic lymph nodes. There is focus [...] Franklin Gomes M.D.10/31/2019 2:44 PM Dictation Location: [facility] The patient was seen by Dr. James and evaluated by Dr. Duval. 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 [facility] - Medical History Medical History: Medical [...] 7 Days 12/09/19 09:14: PHA Creatinine Clear [id number], Sodium 130 L, Potassium 4.3, Chloride 99, [...] at thattime as well. His dose of WOMEN'S GARMENT FITTER-16 is adjusted to 50% due to liver [...] for coordination of care (as documented) and vnal-gq-symm counseling of patient and/or family. Dictated By: George Ash MD DD/ 1109 Signed By: <Electronically signed by MD George Ash> 12/09/19 1113 [facility] Work Phone: [phone] Progress note Author George Ash [facility] November 25, 2019 11:06am Note Date/Time November 25, 2019 11:0 1am [facility] [place] [address] Hem/Onc Follow Up Note - OP Signed Patient: Kirill Echols MR#: [id number] : 1965 Acct:[id number] Age/Sex: 54 / M Type: REG RCR [...] the findings below: Patient: Kirill Echols MR#: [id number] : 1965 Acct:[id number] Age/Sex: 54 / M ADM Date: 0 Loc: Room: Type: [facility] Attending Dr: Varghese Duval MD Ordering Provider: [...] RIGHT supraclavicular region. These may be field representatives director of metastatic lymph nodes. There is focus [...] Franklin Gomes M.D.10/31/2019 2:44 PM Dictation Location: [facility] The patient was seen by Dr. James and evaluated by Dr. Duval. 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 The patient does have evidence of hyponatremia. It is somewhat mild. He does have clubbing on physical exam. [facility] - Medical History Medical History: Medical [...] % (Auto) 62.6, Lymph % (Auto) 28.7, [place] % (Auto) 6.5, Eos % (Auto) 1.5, Baso % (Auto) 0.7, Neut # (Auto) 4.6, Lymph # (Auto) 2.1, [place] # (Auto) 0.5, Eos # (Auto) 0.1, Baso # (Auto) 0.0, Nucleated RBC % (auto) 0.2 11/24/19 07:33: PHA Creatinine Clear 75.8170598071, Sodium 128 L, Potassium 3.7,Chloride 93 L, [...] Not detected 11/18/19 14:04: PHA Creatinine Clear 68.7683448720, Sodium 128 L, Potassium 4.8,Chloride 93 L, [...] Neut % (Auto)N/A, Lymph % (Auto) N/A, [place] % (Auto) N/A, Eos % (Auto) N/A, Baso % (Auto) N/A,Neut # (Auto) N/A, Lymph # (Auto) N/A, [place] # (Auto) N/A, Eos # (Auto) N/A, [...] for coordination of care (as documented) and nynu-uj-eylx counseling of patient and/or family. Dictated By: George Ash MD DD/ 1100 Signed By: <Electronically signed by MD George Ash> 11/25/19 1106 [facility] Work Phone: [phone] Consult note Author Leoncio Kowalski [facility] November 20, 2019 2:44pm Note Date/Time November 20, 2019 1:38p m [facility] [place] [address] Rad Onc Consult Note - OP Signed Patient: Kirill Echols MR#: [id number] : 1965 Acct:[id number] Age/Sex: 54 / M Type: REG RCR Copies to: MD Rylan Vega MD James E Fanning, MD~ HPI - Service Date/Time Date: 11/20/19 Time: 09:50 Diagnosis: 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 Chief Complaint: I am here for my radiation therapy treatments for lung cancer HPI: 54-year-old -Gambian gentleman history of smoking 40 pack years [...] <Electronically signed by Leoncio Kowalski MD> 11/20/19 2852 [facility] Work Phone: [phone] Progress note Author George Ash [facility] November 20, 2019 11:12am Note Date/Time November 20, 2019 11:06 am [facility] [place] [address] Hem/Onc Follow Up Note - OP Signed Patient: Kirill Echols MR#: [id number] : 1965 Acct:[id number] Age/Sex: 54 / M Type: REG RCR [...] see Dr. Duval tomorrow for consideration of Mybrmn-d-Bshv. Chemotherapy education will be tomorrow November 20. [...] the findings below: Patient: Kirill Echols MR#: [id number] : 1965 Acct:[id number] Age/Sex: 54 / M ADM Date: 0 Loc: Room: Type: [facility] Attending Dr: Varghese Duval MD Ordering Provider: [...] RIGHT supraclavicular region. These may be field representatives director of metastatic lymph nodes. There is focus [...] Franklin Gomes M.D.10/31/2019 2:44 PM Dictation Location: [facility] The patient was seen by Dr. James and evaluated by Dr. Duval. 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 The patient does have evidence of hyponatremia. It is somewhat mild. He does have clubbing on physical exam. [facility] - Medical History Medical History: Medical [...] 7 Days 11/18/19 14:04: PHA Creatinine Clear [id number], Sodium 128 L, Potassium 4.8,Chloride 93 L, [...] Neut % (Auto)N/A, Lymph % (Auto) N/A, [place] % (Auto) N/A, Eos % (Auto) N/A, Baso % (Auto) N/A,Neut # (Auto) N/A, Lymph # (Auto) N/A, [place] # (Auto) N/A, Eos # (Auto) N/A, [...] cancer The patient will be seen for Cvpxfu-x-Onqj tomorrow. Head CT has been ordered and [...] for coordination of care (as documented) and wpns-xh-cldc counseling of patient and/or family. Dictated By: George Ash MD DD/ 1104 Signed By: <Electronically signed by MD George Ash> 11/20/19 1114 [facility] Work Phone: [phone] Consult note Author George Ash [facility] November 18, 2019 2:02pm Note Date/Time November 18, 2019 1:50p m [facility] [place] [address] Hem/Onc Consult Note - OP Signed Patient: Kirill Echols MR#: [id number] : 1965 Acct:[id number] Age/Sex: 54 / M [facility] Copies to: MD Rylan Vega MD StrackOphelia Barcenas ~ HPI Date/Time of Service: Date of Service: [...] the findings below: Patient: Kirill Echols MR#: [id number] : 1965 Acct:[id number] Age/Sex: 54 / M ADM Date: 0 Loc: Room: Type: [facility] Attending Dr: Varghese Duval MD Ordering Provider: Varghese Duval MD Date of Service: 10/31/19 PET/PET tumor init tx strat sb-mt: R91.1 R91.8 R59.1 Copies to: MD Rylan Vega MD WardFranklin Nixon [place]~ PET/CT [facility] CLINICAL INFORMATION: Single pulmonary [...] RIGHT supraclavicular region. These may be field representatives director of metastatic lymph nodes. There is focus [...] Franklin Gomes M.D.10/31/2019 2:44 PM Dictation Location: [facility] The patient was seen by Dr. James and evaluated by Dr. Duval. 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 I was called by Dr. uDval today 11/18/2019 and arrange to see the patient immediately. The patient does have evidence of hyponatremia. It is somewhat mild. He does have clubbing on physical exam. [facility] - Medical History Medical History: Medical [...] for immediate head CT. He will need Pxqpjq-v-Qlza placement and I will refer him to [...] for coordination of care (as documented) and wmnz-bg-fowg counseling of patient and/or family. Dictated By: George Ash MD DD/ 1349 Signed By: <Electronically signed by MD George Ash> 11/18/19 1402 [facility] Work Phone: Evaluation noteNo assessment information available [facility] Work Phone: Evaluation note* Diagnosis Onset Date Resolution Status Anemia due to chemotherapy a cute Anxiety acute Cancer-related pain acute Chest pain acute Diarrhea acute Edema acute Joint pain acute Neck pain acute Small cell lung cancer chron ic [facility] Work Phone: Evaluation note* Diagnosis Onset Date Resolution Status Anemia due to chemotherapy a cute Anxiety acute Cancer-related pain acute Chest pain acute Diarrhea acute Edema acute Joint pain acute Neck pain acute Small cell lung cancer chron ic Chest pain acute [facility] Work Phone: Evaluation note* Diagnosis Onset Date Resolution Status Chest pain acute Small cell lung cancer acute Anemia due to chemotherapy a cute Anxiety acute Cancer-related pain acute Chest pain acute Diarrhea acute Edema acute Joint pain acute Neck pain acute Small cell lung cancer chron ic [facility] Work Phone: Evaluation note* Diagnosis Onset Date Resolution Status Chest pain acute Small cell lung cancer acute Anemia due to chemotherapy a cute Anxiety acute Cancer-related pain acute Chest pain acute Diarrhea acute Edema acute Joint pain acute Neck pain acute Small cell lung cancer chron ic Small cell lung cancer acute [facility] Work Phone: Evaluation note* Diagnosis Onset Date [...] Diarrhea resolved Edema resolved Neck pain resolved [facility] Work Phone: Evaluation note* Diagnosis Onset Date Resolution Status Cancer-related pain acute Chronic hyponatremia acute Joint pain acute Shortness of breath acute Weight loss acute Small cell lung cancer chron ic Anxiety resolved Chest pain resolved Diarrhea resolved Edema resolved Neck pain resolved [facility] Work Phone: Evaluation note* Diagnosis Onset Date Resolution Status Cancer-related pain acute Chronic hyponatremia acute Joint pain acute Shortness of breath acute Weight loss acute Small cell lung cancer chron ic Anxiety resolved Chest pain resolved Diarrhea resolved Edema resolved Neck pain resolved Small cell lung cancer chron ic [facility] Work Phone: Evaluation note* Diagnosis Onset Date Resolution Status Abdominal cramping acute GERD (gastroesophageal reflux disease) acute Hx of small bowel obstruction acute Weight loss acute Constipation noneactive [facility] Work Phone: Evaluation note* Diagnosis Chronic obstructive pulmonary disease, unspecified COPD type (CMS/HCC)- Primary Person consulting for explanation of examination or test finding Alcoholic liver disease, unspecified (CMS/HCC) Atherosclerosis of aorta (CMS/HCC) Atherosclerosis of aorta 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) Current moderate episode of major depressive disorder without prior episode (HCC) (CMS/HCC) documented in this encounter [facility] HealthcareEvaluation note* Diagnosis Essential hypertension (CMS/HCC)- Primary Unspecified essential hypertension Burning with urination Dysuria Urinary tract infection with hematuria, site unspecified Gastroesophageal reflux disease without esophagitis Esophageal reflux 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) Nausea Nausea alone Generalized abdominal pain Abdominal pain, generalized Primary pulmonary hypertension (CMS/HCC) Primary pulmonary hypertension documented in this encounter [facility] HealthcareEvaluation note* Diagnosis Chronic obstructive pulmonary disease, [...] lesions Small cell lung cancer in adult ([facility]) Essential hypertension Unspecified essential hypertension Adult failure to thrive 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 syndrome Hyposmolality and/or hyponatremia Severe episode of recurrent major depressive disorder, 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) Insomnia, unspecified type Hypothyroidism, unspecified type [facility] Epidermal inclusion cyst- [...] health care facility documented in this encounter [facility] HealthcareEvaluation note* Diagnosis Alcoholic liver disease, unspecified (HHS-HCC)- Primary Smoker Tobacco use disorder Elevated liver enzymes Other nonspecific abnormal serum enzyme levels Alcohol use disorder, mild, abuse Right upper quadrant pain Abdominal pain, right upper quadrant Right atrial enlargement Right ventricular dilation Shortness of breath documented in this encounter [facility] HealthcareHistory and physical note Author Tez Irene [facility] April 10, 2022 3:12pm Note Date/Time April 10, 2022 3:12pm [facility] [address] [place] [address] Hospitalist H&P Signed Patient: Kirill Echols MR#: [id number] : 1965 Acct:[id number] Age/Sex: 56 / M Adm Date: 2 Loc: Room: [address] [place] [address] Type: ADM INOo Attending Dr: Tez Irene [...] Right side, 2006 Hx of hernia repair Family History Mother [...] % (Auto) 14.2 % (.) 04/10/22 10:20 [place] % (Auto) 9.9 % (.) 04/10/22 10:20 Eos % (Auto) 1.5 % (.) 04/10/22 10:20 Baso % (Auto) 1.0 % (.) 04/10/22 10:20 Neut # (Auto) 4.5 x10E3/uL (1.8-7.7) 04/10/22 10:20 Lymph # (Auto) 0.9 x10E3/uL (1.00-4.8) L 04/10/22 10:20 [place] # (Auto) 0.6 x10E3/uL (0.0-0.8) 04/10/22 10:20 [...] signed by Tez Irene MD> 04/10/22 1512 [facility] Work Phone: Hisfmog general Narrative - Reported* Type Description Date Medical History COPD Medical History anxiety Medical History HTN Medical History Lung CA Surgical History Vasectomy Surgical History Right wrist surgery 2006 Surgical History Hernia repair Hospitalization History Related to above [facility] Other [facility] general Narrative - Reported* Type Description Date Medical History COPD Medical History anxiety Medical History HTN Medical History Lung CA, small cell remission Surgical History Vasectomy Surgical History Right wrist surgery 2006 Surgical History Hernia repair Hospitalization History Related to above [facility] Other Hospital Discharge instructionsAmbulatory Orders* Initiate Home Health Time Frame: 1 Day, Location: Determined By Patient [facility] Work Phone: Hospital Discharge instructionsAmbulatory Orders* Initiate Home Health Time Frame: 1 Day, Location: Determined By Patient * Oncology Histology Time Frame: 10/03/22, Location: Determined By Patient * Oncology Histology Time Frame: 10/17/22, Location: Determined By Patient * Oncology Histology Time Frame: 10/10/22, Location: Determined By Patient [facility] Work Phone: InstructionsNot on filedocumented in this encounter [facility] Author Estela Varma [facility] February 27, 2022 2:56pm Note Date/Time February 27, 2022 2 :51pm [facility] [place] [address] Hem/Onc Follow Up Note - OP Signed Patient: Kirill Echols MR#: [id number] : 1965 Acct:[id number] Age/Sex: 56 / M Type: REG RCR [...] for review. No concerns voiced. HPI: 54-year-old -Gambian gentleman history of smoking 40 pack years [...] overwhelming for recurrence. He lives alone in [place]. His children live in [place]. His left him 8 months ago and [...] and urinary tract. Otherwise, there is an Pinzgw-e-Mdvy on the left. The lungs demonstrate emphysematous [...] He is considering moving back down to [facility] where he is from. [...] for coordination of care (as documented) and mtlf-dv-kajp counseling of patient and/or family. [facility] - Medical History Medical History: Medical [...] 09/14/21 14:56 KB (Rec: 09/14/21 14:59 KB [id number]) Distress Screening Distress score of 4 or more discussed Yes with patient? Distress screening follow up: Spoke with patient via phone. Patient is doing ok at this time. Recently had a heart cath which was negative. He is happpy that his scans are good. Dr. Perez is working on getting him into [facility]. - Lab Results Diagram of Most [...] signed by Estela Varma II, DO> 02/27/22 9276 [facility] Work Phone: Progress note Author Estela Varma [facility] April 14, 2022 12:02pm Note Date/Time April 14, 2022 1 1:50am [facility] [place] [address] Hem/Onc Follow Up Note - OP Signed Patient: Kirill Echols MR#: [id number] : 1965 Acct:[id number] Age/Sex: 56 / M Type: REG RCR [...] concerns voiced at this time. HPI: 54-year-old -Gambian gentleman history of smoking 40 pack years [...] overwhelming for recurrence. He lives alone in [place]. His children live in [place]. His left him 8 months ago and [...] and urinary tract. Otherwise, there is an Vpdboc-u-Exwa on the left. The lungs demonstrate emphysematous [...] He is considering moving back down to [facility] where he is from. [...] for coordination of care (as documented) and csqj-km-ocuo counseling of patient and/or family. [facility] - Medical History Medical History: Medical [...] 03/01/22 15:44 KB (Rec: 03/01/22 15:45 KB [id number]) Distress Screening Distress score of 4 or [...] % (Auto) 71.4, Lymph % (Auto) 16.2, [place] % (Auto) 8.6, Eos % (Auto) 2.9, Baso % (Auto) 0.9, Neut # (Auto) 4.5, Lymph # (Auto) 1.0, [place] # (Auto) 0.5, Eos# (Auto) 0.2, Baso [...] by Estela Varma II, DO> 04/14/22 1202 [facility] Work Phone: Progress note Author Dixie Olivia [facility] June 22, 2022 2:24pm Note Date/Time June 22, 2022 2 :16pm [facility] [place] [address] Hem/Onc Follow Up Note - OP Signed Patient: Kirill Echols MR#: [id number] : 1965 Acct:[id number] Age/Sex: 57 / M Type: REG RCR Copies to: MD Rylan Vega MD~ Subjective Date/Time of Service: Date of Service: 06/22/2022 Time of Service: 14:09 Chief Complaint: Patient is here for a 2 month follow up with, had chest tube placed 06/16/2022. No concerns voiced at this time. HPI: 54-year-old -Gambian gentleman history of smoking 40 pack years [...] overwhelming for recurrence. He lives alone in [place]. His children live in [place]. His left him 8 months ago and [...] and urinary tract. Otherwise, there is an Xxoryq-r-Jujh on the left. The lungs demonstrate emphysematous [...] He is considering moving back down to [facility] where he is from. [...] diaphoresis. No orthostasis or dizziness or palpitations. [facility] - Medical History Medical History: Medical [...] 03/01/22 15:44 KB (Rec: 03/01/22 15:45 KB [id number]) Distress Screening Distress score of 4 or [...] for coordination of care (as documented) and adxr-bi-yciv counseling of patient and/or family. Dictated By: Dixie Olivia APRN DD/ 1409 Signed By: <Electronically signed by ERINN Olivia> 06/22/22 1424 [facility] Work Phone: Progress note Author Esteal Varma [facility] September 19, 2022 10:02am Note Date/Time September 19, 2022 9:50am [facility] [place] [address] Hem/Onc Follow Up Note - OP Signed Patient: Kirill Echols MR#: [id number] : 1965 Acct:[id number] Age/Sex: 57 / M Type: REG RCR [...] Weight loss Follow Up Instructions: f/u wth CHARGE ATTENDANT in 6 weeks, cbc, cmp b12, folate, [...] concerns voiced at this time. HPI: 54-year-old -Gambian gentleman history of smoking 40 pack years [...] overwhelming for recurrence. He lives alone in [place]. His children live in [place]. His left him 8 months ago and [...] and urinary tract. Otherwise, there is an Zwmpbp-u-Zdol on the left. The lungs demonstrate emphysematous [...] [facility] [facility] on August 29, 2022 He [...] for coordination of care (as documented) and ilnf-tj-vlki counseling of patient and/or family. [facility] - Medical History Medical History: Medical [...] History (Last Reviewed 06/16/22 @ 19:33 by FORTUNATO CanoBC) Mother Colon cancer Diabetes mellitus, type 2 [...] 03/01/22 15:44 KB (Rec: 03/01/22 15:45 KB [id number]) Distress Screening Distress score of 4 or [...] by Estela Varma II DO> 09/19/22 1002 [facility] Work Phone: Progress note Author Estela Varma [facility] December 25, 2022 11:43am Note Date/Time December 25, 2022 11 :39am [facility] [place] [address] Hem/Onc Follow Up Note - OP Signed Patient: Kirill Echols MR#: [id number] : 1965 Acct:[id number] Age/Sex: 57 / M Type: REG RCR [...] today. No new concerns voiced. HPI: 54-year-old -Gambian gentleman history of smoking 40 pack years [...] overwhelming for recurrence. He lives alone in [place]. His children live in [place]. His left him 8 months ago and [...] and urinary tract. Otherwise, there is an Zplpve-m-Wqat on the left. The lungs demonstrate emphysematous [...] appointment after ER visit at [facility] on August 29, 2022 He [...] for coordination of care (as documented) and fwbb-cd-zyxu counseling of patient and/or family. [facility] - Medical History Medical History: Medical [...] 03/01/22 15:44 KB (Rec: 03/01/22 15:[id number]) Distress Screening Distress score of 4 or [...] % (Auto) 70.2, Lymph % (Auto) 15.7, [place] % (Auto) 7.8, Eos % (Auto) 5.0, Baso % (Auto) 1.3, Nucleat RBC Rel Count 0.0, Neut # (Auto) 4.2, Lymph # (Auto) 0.9 L, [place] # (Auto) 0.5, Eos # (Auto) 0.3, [...] by Estela Varma II, DO> 12/25/22 1143 [facility] Work Phone: Progress note Author Estela Varma [facility] Note Date/Time July 14, 2024 2:04 pm [facility] [place] [address] Cancer Center Note Signed Patient: Kirill Echols MR#: [id number] : 1965 Acct:[id number] Age/Sex: 59 / M Type: REG AMB [...] Indication Metastatic Cycle Number Last Admin 18 Cycle Day Next Admin - No Active Chemotherapy History of Present Illness [...] oral tablets. HISTORY OF PRESENT ILLNESS 59-year-old -Gambian gentleman history of smoking 40 pack years [...] overwhelming for recurrence. He lives alone in [place]. His children live in [place]. His left him 8 months ago and [...] and urinary tract. Otherwise, there is an Qktxrg-g-Ovje on the left. The lungs demonstrate emphysematous [...] lot of support. His family is in [place] and [place]. Physically he is doing well overall. he [...] cyanocobalamin (vitamin B-12) 1,000 mcg PO DAILY vocqwqnonug-dwqdmsttw-ucuxeaiy 100-62.5-25 mcg (Trelegy Ellipta) 1 inh inhalation [...] and go over labs and CT scans. [facility] Medical History Medical History (Updated 02/08/24 @ [...] Social History (Updated 07/14/24 @ 13:37 by Saima Patel [facility]) Smoking status: Former smoker Within the past [...] (3.5-5.7) 07/11/24 12:50 07/11/24 Dictated By: Estela Vamra II, DO DD/ 1334 Signed By: <Electronically signed by Estela Varma II, DO> 07/14/24 1404 [facility] Work Phone: Reason for referral (narrative)* Consultation (Routine) - Authorized Specialty Diagnoses / Procedures Referred By En rodriguez Referred To Contact Dermatology Diagnoses Mass of chin Procedures DE OFFICE/OUTPATIENT NEW HIGH MDM 60 MINUTES Marilu Bonner, ELLE [address] [place] [address] Referral ID Status Reason Start Date Expiration Date Visits Requested Visits Authorized [id number] Authorized Specialty Services Required 01/18/2024 07/16/2024 1 1 [facility] Summary Purpose Family History No Family History [...] Unknown brother Diabetes mellitus Unknown Advance Directives No Advanced Directives Records Found Advance Directive Response Recorded Date/ Time Advance Directives No September 22 2:27pm Advance Directive Response Recorded Date/ Time Advance Directives No May 12th, 201 8 1:27pm Chief Complaint and Reason for Visit [...] section and content) DATE CREATED AUTHOR 05/14/2018 [facility] DATE CREATED AUTHOR AUTHOR'S ORGANIZ ATION 03/05/2020 [facility] DATE CREATED AUTHOR AUTHOR'S ORGANIZ ATION 08/07/2020 [facility] DATE CREATED AUTHOR AUTHOR'S ORGANIZ ATION 08/20/2020 [facility] DATE CREATED AUTHOR AUTHOR'S ORGANIZ ATION 12/02/2021 [facility] DATE CREATED AUTHOR AUTHOR'S ORGANIZ ATION 03/04/2022 [facility] DATE CREATED AUTHOR AUTHOR'S ORGANIZ ATION 10/23/2022 [facility] [place] [facility] DATE CREATED AUTHOR AUTHOR'S ORGANIZ ATION 09/14/2023 [facility] DATE CREATED AUTHOR AUTHOR'S ORGANIZ ATION 08/16/2024 Montiel Srikanth [facility] DATE CREATED AUTHOR AUTHOR'S ORGANIZ ATION 12/25/[address] [facility] DATE CREATED AUTHOR AUTHOR'S ORGANIZ ATION 02/04/2025 [facility] EPIC REASON FOR VISIT (unrecogniz ed section and content) Reason Comments Shortness of Breath Consultation Small cell lung cancer Consultation Pleural effusion Consultation Specialty Diagnoses / Procedures Referred By Contac t Referred To Contact Pulmonary Disease / Pulmonology Diagnoses Small pleural effusion Small cell lung cancer in adult (CMS/HCC) Shortness of breath Procedures DE OFFICE/OUTPATIENT NEW HIGH MDM 60 MINUTES Marilu Bonner NP [address] [place] [address] Ophelia James DO [address] [place] [address] Referral ID Status Reason Start Date Expiration Date V isits Requested Visits Authorized [id number] Closed Specialty Services Required 10/11/2023 04/08/2024 1 1 Reason Comments Suspicious Skin Lesion Specialty Diagnoses / Procedures Referred By Contac t Referred To Contact Dermatology Diagnoses Mass of chin Procedures DE OFFICE/OUTPATIENT NEW HIGH MDM 60 MINUTES Marilu Bonner NP [address] [place] [address] Phone: tel: fax: Nikos Yu MD [address] [address] Phone: tel: fax: Referral ID Status Reason Start Date Expiration Date V isits Requested Visits Authorized [id number] Closed Specialty Services Required 01/18/2024 07/16/2024 1 [...] art: June 29, 2023 Estela Varma II, Attending Provider Active Start: June 29, 2023 Team Status: Inactive Member Role Status Meir Andrea MD Primary Care Provider Active S tart: June 29, 2023 End: June 29, 2023 Estela Varma II, Attending Provider Active Start: June 29, 2023 End: June 29, 2023 Team Status: Inactive Member Role Status Meir Andrea MD Primary Care Provider Active YULY [...] Active Humberto Molina PA-C Emergency Provider Active Beating Machine Operator Relationship Specialty Start Date End Date Rylan Andrea MD [address] [place] [address] PCP - General Family Medicine 10/16/22 Marilu Bonner, CHARGE ATTENDANT [address] [place] [address] Nurse Practitioner Family Medicine 04/03/23 Nilsa Solomon NP [address] [place] [address] Nurse Practitioner Pulmonary Disease 04/03/23 Morenita Gomes, RN Registered Nurse Family Medicine 06/18/23 Sanjuana Van LSW Rectifying Attendant Family Medicine 06/18/23 Beating Machine Operator Relationship Specialty Start Date End Date Rylan Andrea MD [address] [place] [id number] PCP - General Family Medicine 10/16/22 Marilu Bonner CHARGE ATTENDANT [address] [place] [address] Nurse Practitioner Family Medicine 04/03/23 Nilsa Solomon CHARGE ATTENDANT [address] [place] [address] Nurse Practitioner Pulmonary Disease 04/03/23 Morenita Gomes, RN Registered Nurse Family Medicine 06/18/23 Sanjuana Van, APOLINAR Rectifying Attendant Family Medicine 06/18/23 Team Status: Active Member Role Status Dates Rylan Andrea MD Primary Care Provider Active S tart: December 13, 2023 End: December 20, 2023 Rosalio Vides DO Attending Provider Active Sta rt: December 13, 2023 End: December 20, 2023 Shaikh Barrington MD Referring Provider Active Sta rt: December 13, 2023 End: December 20, 2023 Team Status: Active Member Role Status Dates Rylan Andrea MD Primary Care Provider Active S tart: December 16, 2023 End: December 20, 2023 Rosalio Vides DO Attending Provider Active Sta rt: December 16, 2023 End: December 20, 2023 Shaikh Barrington MD Referring Provider Active Sta rt: December 16, 2023 End: December 20, 2023 Team Status: Active Member Role Status Dates Rylan Andrea MD Primary Care Provider Active S tart: January 07, 2024 Rosalio Vides DO Attending Provider Active Sta rt: January 07, 2024 Team Status: Inactive Member Role Status Dates Rylan Andrea MD Primary Care Provider Active S tart: January 31, 2024 End: January 31, 2024 Cathi Miranda , DO Attending Provider Active St art: January 31, 2024 End: January 31, 2024 Team Status: Inactive Member Role Status Dates Rylan Andrea MD Primary Care Provider Active S tart: February 18, 2024 End: February 18, 2024 Cathi L Ly , DO Attending Provider Active St art: February 18, 2024 End: February 18, 2024 Team Status: Active Member Role Status Dates Rylan Andrea MD Primary Care Provider Active S tart: February 18, 2024 Cathi L Ly , DO Attending Provider, Other Provider Active Start: February 18, 2024 Beating Machine Operator Relationship Specialty Start Date End Date Rylan Andrea MD [address] [place] [address] PCP - General Family Medicine 10/16/22 Rylan Andrea MD [address] [place] [address] PCP - [facility] 05/14/23 05/13/24 Marilu Bonner, CHARGE ATTENDANT [address] [place] [address] Nurse Practitioner Family Medicine 04/03/23 Nilsa Solomon NP [address] [place] [phone] Nurse Practitioner Pulmonary Disease 04/03/23 Sanjuana Van LSW Rectifying Attendant Family Medicine 06/18/23 Cindy Yeager OD [address] [place], [place] [id number] Referring Physician Optometry 10/31/23 Ophelia James DO [address] [place] [address] Pulmonary Disease 01/10/24 Beating Machine Operator Relationship Specialty Start Date End Date Rylan Andrea MD [address] [place] [address] PCP - General Family Medicine 10/16/22 Rylan Andrea MD [address] [place] [address] PCP - [facility] 05/14/23 05/13/24 Marilu Bonner, CHARGE ATTENDANT [address] [place] [address] Nurse Practitioner Family Medicine 04/03/23 Nilsa Solomon NP [address] [place] [address] Nurse Practitioner Pulmonary Disease 04/03/23 Sanjuana Van LSW Rectifying Attendant Family Medicine 06/18/23 Cindy Yeager OD [address] [id number] Referring Physician Optometry 10/31/23 Ophelia James DO [address] [place] [phone] Pulmonary Disease 01/10/24 Beating Machine Operator Relationship Specialty Start Date End Date Rylan Andrea MD [address] [place] [id number] PCP - General Family Medicine 10/16/22 Rylan Andrea MD [address] [place] [id number] PCP - [facility] 05/14/23 05/13/24 Marilu Bonner NP [address] [place] [phone] Nurse Practitioner Family Medicine 04/03/23 Nilsa Solomon NP [address] [place] [address] Nurse Practitioner Pulmonary Disease 04/03/23 Morenita Gomes, ARTHUR Registered Nurse Family Medicine 06/18/23 12/14/23 Sanjuana Van LSW Rectifying Attendant Family Medicine 06/18/23 Cindy Yeager OD [address] [place], [place] [id number] Referring Physician Optometry 10/31/23 Ophelia James DO [address] [place] [place] [address] Pulmonary Disease 01/10/24 Beating Machine Operator Relationship Specialty Start Date End Date Rylan Andrea MD [address] [place] [address] PCP - General Family Medicine 10/16/22 Marilu Bonner, ELLE [address] [place] [address] Nurse Practitioner Family Medicine 04/03/23 Nilsa Solomon NP [address] [place] [address] Nurse Practitioner Pulmonary Disease 04/03/23 Sanjuana Van HONEYCOMB DECAPPER Rectifying Attendant Family Medicine 06/18/23 Cindy العلي MD [address] [place] [address] Referring Physician Optometry 10/31/23 Beating Machine Operator Relationship Specialty Start Date End Date Rylan Andrea MD [address] [place] [address] PCP - General Family Medicine 10/16/22 Marilu Bonner, CHARGE ATTENDANT [address] [place] [address] Nurse Practitioner Family Medicine 04/03/23 Nilsa Solomon NP [address] [place] [phone] Nurse Practitioner Pulmonary Disease 04/03/23 Sanjuana Van LSW Rectifying Attendant Family Medicine 06/18/23 Cindy العلي MD [address] [place] [address] Referring Physician Optometry 10/31/23 Ophelia James DO [address] [place] [address] Pulmonary Disease 01/10/24 Beating Machine Operator Relationship Specialty Start Date End Date Rylan Andrea MD [address] [place] [id number] PCP - General Family Medicine 10/16/22 Marilu Bonner NP [address] [place] [address] Nurse Practitioner Family Medicine 04/03/23 Nilsa Solomon NP [address] [place] [phone] Nurse Practitioner Pulmonary Disease 04/03/23 Sanjuana Van LSW Rectifying Attendant Family Medicine 06/18/23 Cindy العلي MD [address] [place] [address] Referring Physician Optometry 10/31/23 Ophelia James DO [address] [place] [address] Pulmonary Disease 01/10/24 Beating Machine Operator Relationship Specialty Start Date End Date Rylan Andrea MD [address] [place] [address] PCP - General Family Medicine 10/16/22 Marilu Bonner NP [address] [place] [address] Nurse Practitioner Family Medicine 04/03/23 Nilsa Solomon NP [address] [place] [address] Nurse Practitioner Pulmonary Disease 04/03/23 Sanjuana Van LSW Rectifying Attendant Family Medicine 06/18/23 Cindy العلي MD [address] [place], [place] [phone] Referring Physician Optometry 10/31/23 Ophelia James DO [address] [place] [address] Pulmonary Disease 01/10/24 Beating Machine Operator Relationship Specialty Start Date End Date Rylan Andrea MD [address] [place] [address] PCP - General Family Medicine 10/16/22 Marilu Bonner CHARGE ATTENDANT [address] [place] [address] Nurse Practitioner Family Medicine 04/03/23 Nilsa Solomon NP [address] [place] [address] Nurse Practitioner Pulmonary Disease 04/03/23 Sanjuana Van LSW Rectifying Attendant Family Medicine 06/18/23 Cindy لاعلي MD [address] [place], [place] [phone] Referring Physician Optometry 10/31/23 Ophelia James DO [address] [place] [address] Pulmonary Disease 01/10/24 Beating Machine Operator Relationship Specialty Start Date End Date Rylan Andrea MD [address] [place] [address] PCP - General Family Medicine 10/16/22 Marilu Bonner NP [address] [place] [address] Nurse Practitioner Family Medicine 04/03/23 Nilsa Solomon NP [address] [place] [address] Nurse Practitioner Pulmonary Disease 04/03/23 Sanjuana Van LSW Rectifying Attendant Family Medicine 06/18/23 Cindy Yeager OD [address] [facility] [place] [address] Referring Physician Optometry 10/31/23 Ophelia James DO [address] [place] [address] Pulmonary Disease 01/10/24 Beating Machine Operator Relationship Specialty Start Date End Date Rylan Andrea MD [address] [place] [address] PCP - General Family Medicine 10/16/22 Marilu Bonner, ELLE [address] [place] [address] Nurse Practitioner Family Medicine 04/03/23 Nilsa Solomon, CHARGE ATTENDANT [address] [place] [address] Nurse Practitioner Pulmonary Disease 04/03/23 Sanjuana Van LSW Rectifying Attendant Family Medicine 06/18/23 Cindy Yeager OD [address] [place], [place] [address] Referring Physician Optometry 10/31/23 Ophelia James DO [address] [place] [address] Pulmonary Disease 01/10/24 Beating Machine Operator Relationship Specialty Start Date End Date Rylan Andrea MD [address] [place] [id number] PCP - General Family Medicine 10/16/22 Marilu Bonner, ELLE [address] [place] [address] Nurse Practitioner Family Medicine 04/03/23 Nilsa Solomon NP [address] [place] [address] Nurse Practitioner Pulmonary Disease 04/03/23 Sanjuana Van, [facility] Rectifying Attendant Family Medicine 06/18/23 Cindy Yeager, OD [address] [place] [address] Referring Physician Optometry 10/31/23 Ophelia James DO [address] [place] [address] Pulmonary Disease 01/10/24 Beating Machine Operator Relationship Specialty Start Date End Date Rylan Andrea MD [address] [place] [address] PCP - General Family Medicine 10/16/22 Marilu Bonner NP [address] [place] [phone] Nurse Practitioner Family Medicine 04/03/23 Nilsa Solomon NP [address] [place] [address] Nurse Practitioner Pulmonary Disease 04/03/23 Sanjuana Van LSW Rectifying Attendant Family Medicine 06/18/23 Cindy Yeager, OD [address] [place] [address] Referring Physician Optometry 10/31/23 Ophelia James DO [address] [place] [address] Pulmonary Disease 01/10/24 Beating Machine Operator Relationship Specialty Start Date End Date Rylan Andrea MD [address] [place] [address] PCP - General Family Medicine 10/16/22 Marilu Bonner, ELEL [address] [place] [address] Nurse Practitioner Family Medicine 04/03/23 Nilsa Solomon NP [address] [place] [address] Nurse Practitioner Pulmonary Disease 04/03/23 Sanjuana Van LSW Rectifying Attendant Family Medicine 06/18/23 Cindy Yeager OD [address] [place] [address] Referring Physician Optometry 10/31/23 Ophelia James DO [address] [place] [address] Pulmonary Disease 01/10/24 Beating Machine Operator Relationship Specialty Start Date End Date Rylan Andrea MD [address] [place] [address] PCP - General 11/09/17 Beating Machine Operator Relationship Specialty Start Date End Date Rylan Andrea MD [address] [place] [address] PCP - General Family Medicine 10/16/22 Marilu Bonner, CHARGE ATTENDANT [address] [place] [address] Nurse Practitioner Family Medicine 04/03/23 Nilsa Solomon CHARGE ATTENDANT [address] [place] [address] Nurse Practitioner Pulmonary Disease 04/03/23 Sanjuana Van LSW Rectifying Attendant Family Medicine 06/18/23 Cindy Yeager, OD [address] [place], [place] [phone] Referring Physician Optometry 10/31/23 Ophelia James DO [address] [place] [address] Pulmonary Disease 01/10/24 Beating Machine Operator Relationship Specialty Start Date End Date Rylan Andrea MD [address] [place] [address] PCP - General Family Medicine 10/16/22 Marilu Bonner NP [address] [place] [address] Nurse Practitioner Family Medicine 04/03/23 Nilsa Solomon NP [address] [place] [address] Nurse Practitioner Pulmonary Disease 04/03/23 Sanjuana Van LSW Rectifying Attendant Family Medicine 06/18/23 Cindy Yeager, OD [address] [place] [address] Referring Physician Optometry 10/31/23 Ophelia James DO [address] [place] [address] Pulmonary Disease 01/10/24 Beating Machine Operator Relationship Specialty Start Date End Date Rylan Andrea MD [address] [place] [place] [address] PCP - General Family Medicine 10/16/22 Nilsa Solomon, CHARGE ATTENDANT [address] [place] [address] Nurse Practitioner Pulmonary Disease 04/03/23 Sanjuana Van LSW Rectifying Attendant Family Medicine 06/18/23 Cindy Yeager, OD [address] [place] [address] Referring Physician Optometry 10/31/23 Ophelia James DO [address] [place] [address] Pulmonary Disease 01/10/24 Beating Machine Operator Relationship Specialty Start Date End Date Rylan Andrea MD [address] [place] [address] PCP - General Family Medicine 10/16/22 Nilsa Solomon, CHARGE ATTENDANT [address] [place] [address] Nurse Practitioner Pulmonary Disease 04/03/23 Sanjuana Van, APOLINAR [address] [place] [address] Rectifying Attendant Family Medicine 06/18/23 Cindy Yeager, MAJO [address] [place], [place] [phone] Referring Physician Optometry 10/31/23 Ophelia James DO [address] [place] [address] Pulmonary Disease 01/10/24 Beating Machine Operator Relationship Specialty Start Date End Date Rylan Andrea MD [address] [place] [address] PCP - General Family Medicine 10/16/22 Nilsa Solomon, CHARGE ATTENDANT [address] [place] [address] Nurse Practitioner Pulmonary Disease 04/03/23 Sanjuana Van LSW [address] [place] [address] Rectifying Attendant Family Medicine 06/18/23 Cindy Yeager OD [address] [place], [place] [address] Referring Physician Optometry 10/31/23 Ophelia James DO [address] [place] [address] Pulmonary Disease 01/10/24 Beating Machine Operator Relationship Specialty Start Date End Date Rylan Andrea MD [address] [place] [address] PCP - General Family Medicine 10/16/22 Nilsa Solomon, CHARGE ATTENDANT [address] [place] [address] Nurse Practitioner Pulmonary Disease 04/03/23 Sanjuana Van LSW [address] [place] [address] Rectifying Attendant Family Medicine 06/18/23 ShobhaCindy, OD [address] [place] [address] Referring Physician Optometry 10/31/23 Ophelia James DO [address] [place] [address] Pulmonary Disease 01/10/24 Beating Machine Operator Relationship Specialty Start Date End Date Rylan Andrea MD [address] [place] [address] PCP - General Family Medicine 10/16/22 Nilsa Solomon, CHARGE ATTENDANT [address] [place] [address] Nurse Practitioner Pulmonary Disease 04/03/23 Sanjuana Van, [facility] [address] [place] [address] Rectifying Attendant Family Medicine 06/18/23 Cindy Yeager, OD [address] [place] [address] Referring Physician Optometry 10/31/23 Ophelia James DO [address] [place] [address] Pulmonary Disease 01/10/24 Beating Machine Operator Relationship Specialty Start Date End Date Rylan Andrea MD [address] [place] [address] PCP - General Family Medicine 10/16/22 Nilsa Solomon CHARGE ATTENDANT [address] [place] [address] Nurse Practitioner Pulmonary Disease 04/03/23 Sanjuana Van, APOLINAR [address] [place] [address] Rectifying Attendant Family Medicine 06/18/23 Cindy Yeager OD [address] [place], [place] [phone] Referring Physician Optometry 10/31/23 Ophelia James DO [address] [place], [place] [id number] Pulmonary Disease 01/10/24 FOR RECORDS PERTAINING TO [...] BE BASED ON THE PRIMARY CLINICAL RECORDS. [facility]. provides no warranty or guarantee of the accuracy or completeness of information in this document.
--- NOTE | 2025-02-13 13:00 | CA_ITS ---
Patient Name: TONI GERBER MR#: [id number] : 1965 Exam Date: 02/13/2025 Ordering Doctor: GRACIA SOLOMON ECHOCARDIOGRAM REPORT PROCEDURE: CA ECHO DOPPLER COMPLETE INDICATIONS: Dyspnea, h/o right atrial enlargement, COPD, emphysema COMPARISON: None. DESCRIPTION: COMPLETE ECHOCARDIOGRAM Real-time transthoracic echocardiography with 2D, M-mode, spectral and color flow Doppler performed. QUALITY: Technical quality was good. LEFT VENTRICLE: Normal chamber size. Normal left ventricular wall thickness. Normal systolic function. Estimated left ventricular ejection fraction is 55-60%. LV EF: Normal left ventricular ejection fraction, (>55%). DIASTOLIC: Diastolic function is indeterminate. ATRIAL SEPTUM: Visually appears intact. LEFT ATRIUM: Normal chamber size. RIGHT ATRIUM: Normal chamber size. RIGHT VENTRICLE: Normal chamber size. Normal right ventricular systolic function. TRICUSPID VALVE: Normal mobility and thickness. No stenosis with trivial regurgitation. Doppler studies reveal mildly (35-45) elevated right sided pressures. RVSP 36 mmHg MITRAL VALVE: Normal mobility and thickness. No evidence of mitral valve stenosis. There is no mitral annular calcification. Trivial mitral regurgitation. AORTIC VALVE: Normal trileaflet appearance. No visible sclerosis. Normal leaflet mobility. No evidence of aortic valve stenosis. No aortic regurgitation. AORTIC ROOT: Normal diameter and appearance, measuring 3.1 cm. PULMONIC VALVE: Normal thickness and mobility. No stenosis. No regurgitation. PERICARDIUM: No evidence of pericardial effusion. IVC: Collapses with inspiration. IVC is normal in size. PLEURA: CONCLUSION: 1. Normal ventricular size and systolic function. Estimated LVEF is 55-60%. 2. Normal diastolic function. 3. No significant valvular dysfunction. 4. Mildly elevated right-sided pressures. Adult Echocardiography Procedure Report Left Ventricle LVEDD (3.7 - 5.6 cm): 4.10 cm LVESD (2.2 - 4.0 cm): 3.26 cm LVIVS thickness (0.6 - 1.2 cm): 0.95 cm LVPW thickness (0.5 - 1.0 cm): 0.90 cm e': 0.11 m/s E - e': 6.14 LVOT Max Gradient: 2.15 mm[Hg] LVOT Area (cm2): 0.73 m/s Peak Velocity (LVOT): 0.73 m/s Mean Velocity (LVOT): 0.44 m/s LVOT Diameter 2.36 cm Left Ventricular Ejection Fraction: 55-60 % Left Atrium LA Volume Index (2D A2C): 22.83 ml/m2 Left Atrium Systolic Dimension: 2.83 cm Mitral Valve MV E to A Ratio: 0.70 Mitral Valve A-Wave Peak Velocity: 0.93 m/s Mitral Valve E-Wave Peak Velocity: 0.65 m/s Right Ventricle Aorta AO Root Diam: 3.09 cm Aortic Valve AoV Area (Peak Jaskaran): 3.73 cm2, 3.73 cm2 AoV Area (VTI): 3.49 cm2, 3.49 cm2 Peak Velocity(Antegrade Flow): 0.86 m/s Peak Gradient(Antegrade Flow): 2.94 mm[Hg] Mean Velocity(Antegrade Flow): 0.57 m/s Mean Gradient(Antegrade Flow): 1.50 mm[Hg] Velocity Time Integral: 18.58 cm Tricuspid Valve Peak Velocity (Regurgitant Flow): 2.72 m/s, 2.57 m/s, 2.87 m/s Pulmonic Valve Peak Velocity: 0.82 m/s Peak Gradient: 2.62 mm[Hg], 2.74 mm[Hg] Right Atrium Right Atrium Systolic Pressure: 21.36 ml, 21.36 ml Dictated by: Michael Mancuso M.D. on 02/13/2025 at 18:53 Approved by: Michael Mancuso M.D. on 02/13/2025 at 18:57
== END 2025-02-13 12:08 | disposition home or self-care (01) ==
LOC: CARD 12:07
PROVIDERS: PCP Family Medicine; Visit Provider Nurse Practitioner
DX: K70.9 Alcoholic liver disease, unspecified (principal); F17.200 Nicotine dependence, unspecified, uncomplicated; R74.8 Abnormal levels of other serum enzymes; F10.10 Alcohol abuse, uncomplicated; R10.11 Right upper quadrant pain; I51.7 Cardiomegaly; R06.02 Shortness of breath
CPT/HCPCS: 76705; 93306